=== PATIENT | female | born 1945 | race Caucasian/White ===

== ENCOUNTER → 2024-07-17 | Outpatient (REF) | payer MEDICARE, SELFPAY ==
[2024-07-17 09:08] LABS: Hemoglobin 7.4 g/dL (12.0-15.0)
== END ==
LOC: OLS.ACH 05:00
PROVIDERS: Visit Provider Internal Medicine
DX: K92.2 Gastrointestinal hemorrhage, unspecified (principal)
CPT/HCPCS: 36415; 85014; 85018

== ENCOUNTER → 2024-07-18 | Outpatient (REF) | payer MEDICARE, SELFPAY | LOC: OLS.ACH 05:00 | PROVIDERS: Visit Provider Internal Medicine | DX: K76.9 Liver disease, unspecified (principal) | CPT/HCPCS: 36415; 82140 ==

== ENCOUNTER → 2024-07-20 | Outpatient (REF) | payer MEDICARE, SELFPAY | LOC: OLS.ACH 05:00 | PROVIDERS: Visit Provider Internal Medicine | DX: G93.41 Metabolic encephalopathy (principal); K74.60 Unspecified cirrhosis of liver | CPT/HCPCS: 36415; 82140 ==

== ENCOUNTER → 2024-07-25 04:00 | Outpatient (REF) | payer MEDICARE, SELFPAY | LOC: OLS.ACH 04:00 | PROVIDERS: Referring Provider Internal Medicine; Visit Provider Internal Medicine | DX: K74.60 Unspecified cirrhosis of liver (principal) | CPT/HCPCS: 36415; 84443 ==

== ENCOUNTER → 2024-08-02 04:00 | Outpatient (REF) | payer MEDICARE, SELFPAY | LOC: OLS.ACH 04:00 | PROVIDERS: Referring Provider Internal Medicine; Visit Provider Internal Medicine | DX: K76.9 Liver disease, unspecified (principal); E87.1 Hypo-osmolality and hyponatremia | CPT/HCPCS: 36415; 82140 ==

== ENCOUNTER → 2024-08-03 05:00 | Outpatient (REF) | payer MEDICARE, SELFPAY ==
[2024-08-03 09:53] LABS: Anion Gap 7 (5-15); BUN 15 mg/dL (7-18); BUN/Creat Ratio 11.8 RATIO (10-20); Calcium,Total 8.9 mg/dL (8.5-10.1); Chloride 107 mmol/L (98-107); Creatinine, Serum 1.27 mg/dL (0.55-1.02); EST Glomerular Filtration Rate 43 mL/min (>60); Est Glom Filt Rate - Afr Amer 52 mL/min (>60); Glucose 117 mg/dL (74-106); Potassium 3.5 mmol/L (3.5-5.1); Sodium Level 140 mmol/L (136-145)
== END ==
LOC: OLS.ACH 05:00
PROVIDERS: Visit Provider Internal Medicine
DX: I50.9 Heart failure, unspecified (principal)
CPT/HCPCS: 36415; 80048

== ENCOUNTER → 2024-08-07 05:00 | Outpatient (REF) | payer MEDICARE, SELFPAY ==
[2024-08-07 08:50] LABS: ALB/GLOB Ratio 0.8 RATIO (0.9-2.4); AST(SGOT) 47 U/L (15-37); Alanine Aminotransfer ALT/SGPT 27 U/L (13-56); Albumin, Serum 2.8 g/dL (3.2-5.0); Alkaline Phosphatase 174 U/L (45-117); Anion Gap 6 (5-15); BUN 14 mg/dL (7-18); BUN/Creat Ratio 10.9 RATIO (10-20); Calcium,Total 9.3 mg/dL (8.5-10.1); Chloride 106 mmol/L (98-107); Creatinine, Serum 1.28 mg/dL (0.55-1.02); EST Glomerular Filtration Rate 43 mL/min (>60); Est Glom Filt Rate - Afr Amer 52 mL/min (>60); Globulin 3.6 g/dL (2.2-4.2); Glucose 127 mg/dL (74-106); Potassium 3.8 mmol/L (3.5-5.1); Protein, Total 6.4 g/dL (6.4-8.2); Sodium Level 139 mmol/L (136-145)
== END ==
LOC: OLS.ACH 05:00
PROVIDERS: Visit Provider Internal Medicine
DX: E87.1 Hypo-osmolality and hyponatremia (principal); I50.9 Heart failure, unspecified; E11.9 Type 2 diabetes mellitus without complications
CPT/HCPCS: 36415; 80053; 82140

== ENCOUNTER → 2024-09-25 04:00 | Outpatient (REF) | payer MEDICARE, SELFPAY ==
[2024-09-25 08:32] LABS: Hematocrit 32.7 % (37-47); Hemoglobin 10.5 g/dL (12.0-15.0); Mean Corp Hgb Conc 32.1 g/dL (32-36); Mean Corpuscular Hgb 31.5 pg (27.0-32.0); Mean Corpuscular Volume 98.2 fL (81-99); Mean Platelet Vol. 11.1 fl (6.2-12.0); Platelet Count 114 K/mm3 (150-450); RBC Distribution Width CV 14.3 % (11.6-14.6); RBC Distribution Width SD 51.7 fl (35.1-43.9); Red Blood Count 3.33 M/mm3 (4.2-5.4)
[2024-09-25 08:56] LABS: ALB/GLOB Ratio 0.6 RATIO (0.9-2.4); AST(SGOT) 44 U/L (15-37); Alanine Aminotransfer ALT/SGPT 27 U/L (13-56); Albumin, Serum 2.5 g/dL (3.2-5.0); Alkaline Phosphatase 152 U/L (45-117); Anion Gap 8 (5-15); BUN 18 mg/dL (7-18); BUN/Creat Ratio 14.6 RATIO (10-20); Chloride 107 mmol/L (98-107); Creatinine, Serum 1.23 mg/dL (0.55-1.02); EST Glomerular Filtration Rate 45 mL/min (>60); Est Glom Filt Rate - Afr Amer 54 mL/min (>60); Glucose 127 mg/dL (74-106); Potassium 3.5 mmol/L (3.5-5.1); Protein, Total 6.5 g/dL (6.4-8.2); Sodium Level 141 mmol/L (136-145)
== END ==
LOC: OLS.ACH 04:00
PROVIDERS: Referring Provider Internal Medicine; Visit Provider Internal Medicine
DX: K76.9 Liver disease, unspecified (principal); I50.9 Heart failure, unspecified; E11.9 Type 2 diabetes mellitus without complications
CPT/HCPCS: 36415; 80053; 82140; 85027

== ENCOUNTER → 2024-10-05 | Outpatient (REF) | payer MEDICARE, SELFPAY ==
[2024-10-05 09:30] LABS: Ammonia 62.1 umol/L (11-51)
== END ==
LOC: OLS.ACH 05:00
PROVIDERS: Visit Provider Internal Medicine
DX: K74.60 Unspecified cirrhosis of liver (principal); K76.9 Liver disease, unspecified
CPT/HCPCS: 36415; 82140

== ENCOUNTER → 2024-10-15 | Outpatient (REF) | payer MEDICARE, SELFPAY ==
[2024-10-15 08:09] LABS: Ammonia 46.6 umol/L (11-51)
== END ==
LOC: OLS.ACH 05:00
PROVIDERS: Visit Provider Internal Medicine
DX: K74.60 Unspecified cirrhosis of liver (principal); K76.9 Liver disease, unspecified; G93.41 Metabolic encephalopathy; N18.30 Chronic kidney disease, stage 3 unspecified
CPT/HCPCS: 36415; 82140

== ENCOUNTER → 2024-10-26 | Outpatient (REF) | payer MEDICARE, SELFPAY ==
[2024-10-26 08:03] LABS: Anion Gap 10 (5-15); BUN 24 mg/dL (4-19); BUN/Creat Ratio 17.4 RATIO (10-20); Calcium,Total 9.1 mg/dL (7.6-11.0); Carbon Dioxide 26.5 mmol/L (21.0-32.0); Chloride 103 mmol/L (98-108); Creatinine, Serum 1.39 mg/dL (0.70-1.20); EST Glomerular Filtration Rate 39 (>60); Glucose 152 mg/dL (70-99); Potassium 3.5 mmol/L (3.3-5.1); Sodium Level 139 mmol/L (133-145)
== END ==
LOC: OLS.ACH 05:00
PROVIDERS: Visit Provider Internal Medicine
DX: K76.9 Liver disease, unspecified (principal); E11.3293 Type 2 diabetes mellitus with mild nonproliferative diabetic retinopathy without macular edema, bilateral; I50.9 Heart failure, unspecified; E03.9 Hypothyroidism, unspecified
CPT/HCPCS: 36415; 80048

== ENCOUNTER → 2024-11-02 | Outpatient (REF) | payer MEDICARE, SELFPAY ==
[2024-11-02 08:48] LABS: Anion Gap 11 (5-15); BUN 22 mg/dL (4-19); BUN/Creat Ratio 14.1 RATIO (10-20); Calcium,Total 9.4 mg/dL (7.6-11.0); Carbon Dioxide 25.6 mmol/L (21.0-32.0); Chloride 103 mmol/L (98-108); Creatinine, Serum 1.52 mg/dL (0.70-1.20); EST Glomerular Filtration Rate 35 (>60); Glucose 136 mg/dL (70-99); Potassium 3.8 mmol/L (3.3-5.1); Sodium Level 139 mmol/L (133-145)
== END ==
LOC: OLS.ACH 05:00
PROVIDERS: Visit Provider Internal Medicine
DX: K76.9 Liver disease, unspecified (principal); E11.3293 Type 2 diabetes mellitus with mild nonproliferative diabetic retinopathy without macular edema, bilateral; I50.9 Heart failure, unspecified; E03.9 Hypothyroidism, unspecified
CPT/HCPCS: 36415; 80048

== ENCOUNTER → 2024-11-12 | Outpatient (REF) | payer MEDICARE, SELFPAY | LOC: OLS.ACH 05:00 | PROVIDERS: Visit Provider Internal Medicine | DX: K76.9 Liver disease, unspecified (principal) | CPT/HCPCS: 36415; 82140 ==

== ENCOUNTER → 2024-11-26 | Outpatient (REF) | payer MEDICARE, MEDICAID, SELFPAY ==
[2024-11-26 09:27] LABS: Hematocrit 32.2 % (37-47); Hemoglobin 10.5 g/dL (12.0-15.0); Mean Corp Hgb Conc 32.6 g/dL (32-36); Mean Corpuscular Volume 98.2 fL (81-99); Mean Platelet Vol. 10.6 fl (6.2-12.0); Platelet Count 142 K/mm3 (150-450); RBC Distribution Width CV 13.9 % (11.6-14.6); RBC Distribution Width SD 49.7 fl (35.1-43.9); Red Blood Count 3.28 M/mm3 (4.2-5.4); White Blood Count 9.6 K/mm3 (4.4-11.0)
== END ==
LOC: OLS.ACH 05:00
PROVIDERS: Visit Provider Internal Medicine
DX: R05.1 Acute cough (principal)
CPT/HCPCS: 36415; 85027; 87631

== ENCOUNTER → 2024-12-25 05:00 | Outpatient (REF) | payer MEDICARE, MEDICAID, SELFPAY | LOC: OLS.ACH 05:00 | PROVIDERS: Visit Provider Internal Medicine | DX: E11.3293 Type 2 diabetes mellitus with mild nonproliferative diabetic retinopathy without macular edema, bilateral (principal) | CPT/HCPCS: 36415; 83036 ==

== ENCOUNTER → 2025-01-10 05:00 | Outpatient (REF) | payer MEDICARE, MEDICAID, SELFPAY ==
[2025-01-10 08:26] LABS: Hematocrit 34.1 % (37-47); Hemoglobin 11.3 g/dL (12.0-15.0); Mean Corp Hgb Conc 33.1 g/dL (32-36); Mean Corpuscular Hgb 32.8 pg (27.0-32.0); Mean Corpuscular Volume 98.8 fL (81-99); Mean Platelet Vol. 11.6 fl (6.2-12.0); Platelet Count 125 K/mm3 (150-450); RBC Distribution Width CV 13.4 % (11.6-14.6); RBC Distribution Width SD 47.8 fl (35.1-43.9); Red Blood Count 3.45 M/mm3 (4.2-5.4); White Blood Count 7.4 K/mm3 (4.4-11.0)
[2025-01-10 09:04] LABS: Anion Gap 10 (5-15); BUN 24 mg/dL (4-19); BUN/Creat Ratio 18.5 RATIO (10-20); Carbon Dioxide 25.7 mmol/L (21.0-32.0); Chloride 104 mmol/L (98-108); Creatinine, Serum 1.31 mg/dL (0.70-1.20); EST Glomerular Filtration Rate 41 (>60); Glucose 134 mg/dL (70-99); Potassium 3.5 mmol/L (3.3-5.1); Sodium Level 140 mmol/L (133-145)
== END ==
LOC: OLS.ACH 05:00
PROVIDERS: Visit Provider Internal Medicine
DX: R60.0 Localized edema (principal); I50.9 Heart failure, unspecified
CPT/HCPCS: 36415; 80048; 85027

== ENCOUNTER → 2025-02-05 04:00 | Outpatient (REF) | payer MEDICARE, MEDICAID, SELFPAY ==
--- OUTSIDE RECORDS SUMMARY | 2025-02-05 04:32 | XMS RPT_ITS | CCD ---
Author Organization [facility] Care Team Providers Care Supervisor Sulfuric [employer] Name Role Phone Komal Cohn Primary Care Provider Komal Cohn DO Primary Care Provid er Komal Cohn DO Unavailable Guido RN, Sue Unavailable Unavailable Latonya Rosado RN Unavailable Unavailable [facility] DO [place] Primary Care Provider Lalit TSE [place] Primary Care Provider Lalit TSE [place] Primary Care Provider Adin Elias CNP Primary Care Provider KOMAL COHN Attending Joseph COHN MAROA MARYAN Primary Care Joseph COHN MAROA MARYAN Attending Varshavavicenta labanna COHN MAROA MARYAN Primary Care Unalien COHN MAROA MARYAN Attending Joseph COHN MAROA MARYAN Primary Care Unavavicenta labanna COHN MAROA MARYAN Primary Care Unavavicenta labanna COHN KOMAL MARYAN Attending Unavavicenta labanna COHN MAROA MARYAN Primary Care Unavavicenta labanna COHN MAROA MARYAN Attending Unavavicenta labanna COHN, MAROA MARYAN Primary Care Unavavicenta labanna COHN MAROA MARYAN Attending Joseph Olmedo MD, Julieth Attending Provider Unavailable Shara BRUNNER, Julieth Referring Provider Unavailable Shara BRUNNER, Julieth Attending Provider Unavailable Shara BRUNNER, Julieth Attending Provider Unavailable Shara BRUNNER, Julieth Referring Provider Unavailable Julieth Olmedo DO Primary Care Provider [facility] Unavailable MUKKAMALLA, MAHAVEER Admitting Unavailable ERICKSON, MANSUMEET Consulting Unavailable LISA, TERENCE Attending Unavailable [facility] Unavailable KERI, ERINN Admitting Unavailable BONYCONNOR BORDENAN Attending Unavailable [facility] Care Unavailable MATTHEW MORILLO Admitting Unavailable MAGALY, ARIADNE N Attending Unavailab WIL Sapp Consulting Unavailable [facility] Unavailable [facility] Unavailable STRINGER MASROOR Referring Unavailable [facility] Unavailable [facility] Unavailable POOLE, PRAVIN Attending Unavailable DEPAMYO, JULIETH Primary Care Unavailable JOSE JOEL Attending Unavailable [facility] Unavailable LE DOBSON Attending LE Narayanan Referring [facility] Unavailable [facility] Attending Unavailable [facility] Referring Unavailable [facility] Unavailable JOSE JOEL Attending Unavailable JOSE JOEL Referring Unavailable [facility] Care Unavailable LE DOBSON Attending LE Narayanan Referring [facility] Unavailable Deperro OLS, Julieth Referring Unavailable Deperro OLS, Julieth Attending Unavailable Deperro OLS, Julieth Attending Unavailable Deperro OLS, Julieth Attending Unavailable Deperro OLS, Julieth Attending Unavailable Deperro OLS, Julieth Referring Unavailable Deperro OLS, Julieth Attending Unavailable Deperro OLS, Julieth Attending Unavailable Deperro OLS, Julieth Attending Unavailable Deperro OLS, Julieth Attending Unavailable Deperro OLS, Julieth Attending Unavailable Deperro OLS, Julieth Attending Unavailable Deperro OLS, Julieth Attending Unavailable Deperro OLS, Julieth Attending Unavailable Deperro OLS, Julieth Attending Unavailable Deperro OLS, Julieth Attending Unavailable Deperro OLS, Julieth Attending Unavailable Deperro OLS, Julieth Attending Unavailable Deperro OLS, Julieth Referring Unavailable Deperro OLS, Julieth Attending Unavailable Deperro OLS, Julieth Referring Unavailable Deperro OLS, Julieth Attending Unavailable Deperro OLS, Julieth Attending Unavailable Deperro OLS, Julieth Attending Unavailable Allergies Allergy Classification Reported Allergen(s) Allergy Type Date of Onset Reaction(s) Facility Opioid Agonists (12 sources) Codeine Drug Allergy 02-24-2016 Hives, Rash, Unknown [facility] (20 sources) Codeine; Translations: [CODEINE] Drug Allergy 02-24-2016 Hives, Rash [facility] Work Phone: (20 sources) Codeine; Translations: [CODEINE SULFATE] Drug Allergy 06-13-2018 Unknown [facility] Medications Current Medications Medication Drug Class(es) Dates Sig (Normalized) Sig (Original) alpha tocopherol (Vitamin E) 100 units capsule (20 sources) take 1 capsule by mo uth once daily alpha tocopherol (Vitamin E) 100 units capsule Take 100 Units by mouth daily. Active take 1 capsule by mouth once isiah ly alpha tocopherol (Vitamin E) 100 units capsule Take 100 Units by mouth daily. 0 Active amLODIPine 5 mg oral tablet (3 sources) Dihydropyridine Calcium Channel Partha Start: 06-11-2024 End: 06-11-2025 take 1 tablet by mouth once daily amLODIPine (NORVASC) 5 mg tablet Indications: Primary hypertension Take 1 tablet by mouth once daily. 90 tablet 3 06/11/2024 06/11/2025 Active amoxicillin 500 mg oral capsule (2 sources) Penicillin-class Antibacterial Start: 07-04-2023 End: 07-11-2023 take 1 capsule by mouth every eight hours amoxicillin (AMOXIL) 500 mg capsule Take 1 capsule by mouth every 8 hours for 7 days. 30 capsule 0 07/04/2023 07/11/2023 Active Comment on above: Take 1 capsule by mo uth every 8 hours for 7 days. Take 1 capsule by mo ut every 8 hours for 10 days. amoxicillin 875 mg / clavulanate 125 mg oral tablet (2 sources) Penicillin-class Antibacterial Start: 02-02-2024 End: 02-07-2024 take 1 tablet by mouth twice daily amoxicillin-clavul anate (Augmentin) 875-125 MG tablet Take 1 tablet by mouth 2 times daily for 5 days. 10 tablet 02/02/2024 02/07/2024 Active Blood-Glucose Meter (20 sources) Start: 11-11-2022 Blood-Glucose Meter Indications: Type 2 diabetes mellitus without complication, without long-term current use of insulin ([facility]) Use to test blood sugar 1 Each 11/11/2022 Active Start: 11-11-2022 Blood-Glucose Meter Indications: Type 2 diabetes mellitus without complication, without long-term current use of insulin (HCC) Use to test blood sugar 1 Each 0 11/11/2022 Active Comment on above: Use to test blood [place] [facility] cholecalciferol (Vitamin D3) 200 Unit tablet split tablet (5 sources) cholecalciferol (Vitamin D3) 200 Unit tablet split tablet Take 5,000 Units by mouth daily. Active cholecalciferol, vitamin D3, (VITAMIN D3 ORAL) (20 sources) cholecalciferol, vitamin D3, (VITAMIN D3 ORAL) Take by mouth. Active cholecalciferol, vitamin D3, (VITAMIN D3 ORAL) Take by mouth. 0 Active Comment on above: Take by mouth. 12 hr dextromethorphan hydrobromide 30 mg / guaiFENesin 600 mg extended release oral tablet (4 sources) Uncompetitive T-gqjntz-G-aspartate Receptor Antagonist, Sigma-1 Agonist Start: 07-01-20 End: 07-18-20 fluticasone propionate 0.05 mg/actuat metered dose nasal spray (20 sources) Corticosteroid Start: 01-06-20 take 2 spray(s) nasal route once daily fluticasone (FLONASE) 50 mcg/actuation nasal spray Indications: Other seasonal allergic rhinitis Use 2 Sprays in each nostril once daily. 48 mL 3 01/06/2024 Active Start: 03-20-2021 End: 01-06-2024 take 2 spray(s) nasal route once daily fluticasone (FLONASE) 50 mcg/actuation nasal spray Indications: Other seasonal allergic rhinitis SPRAY 2 SPRAYS INTO EACH NOSTRIL EVERY DAY 48 mL 3 12/14/2022 01/06/2024 Discontinued Start: 11-26-2020 End: 02-24-2021 take 2 spray(s) nasal route once daily fluticasone (FLONASE) 50 mcg/actuation nasal spray Indications: Seasonal allergies Use 2 Sprays in each nostril once daily. 48 mL 3 11/26/2020 02/24/2021 Active Start: 09-25-2020 End: 11-26-2020 fluticasone (FLONASE) 50 mcg/actuation nasal spray USE 2 SPRAY(S) EVERY DAY BY INTRANASAL ROUTE FOR 90 DAYS. 48 mL 3 09/25/2020 11/26/2020 Discontinued take 2 spray(s) nasa l route once daily fluticasone (FLONASE) 50 MCG/ACT nasal spray 2 sprays by Each Nostril route daily 0 Active End: 09-25-2020 take 2 spray(s) nasal route once daily fluticasone (FLONASE) 50 mcg/actuation nasal spray Use 2 Sprays in each nostril once daily. 0 09/25/2020 Discontinued Comment on above: Use 2 Sprays in each nostril once daily. USE 2 SPRAY(S) EVERY DAY BY INTRANASAL ROUTE FOR 90 DAYS. SPRAY 2 SPRAYS INTO EACH NOSTRIL EVERY DAY 2 ml furosemide 10 mg/ml injection (20 sources) Loop Diuretic Start: 06-29-2024 Start: 03-14-2024 furosemide (La six) 20 MG tablet 3 days in a row 100 tablet 3 03/14/2024 Active Start: 01-30-2024 20 mg, IntraVE Nous, Once, On Tue01/30/24 at 1815, For 1 dose Start: 12-07-2023 End: 06-04-2024 take 1 tablet by mouth once daily furosemide (LASIX) 40 mg tablet Indications: Bilateral leg edema Take 1 tablet by mouth once daily. 30 tablet 5 12/07/2023 06/04/2024 Active Start: 04-19-2022 End: 05-03-2022 take 3 tablets by mouth once daily furosemide (LASIX) 40 mg tablet Take 3 tablets by mouth once daily. 90 tablet 3 04/19/2022 05/03/2022 Discontinued (Course of therapy completed) Start: 12-18-2021 End: 12-19-2021 furosemide (LASIX) injection 40 mg Start: 12-17-2021 furosemide (LA SIX) tablet 40 mg Start: 12-14-2021 End: 12-14-2021 furosemide (LASIX) injection 20 mg Start: 12-14-2021 End: 12-15-2021 furosemide (LASIX) injection 40 mg Start: 12-14-2021 End: 12-14-2021 furosemide (LASIX) 10 MG/ML injection Start: 06-14-2020 End: 06-11-2024 End: 08-16-2022 take 1 tablet by mouth twice daily furosemide (LASIX) 20 mg tablet Take 20 mg by mouth twice daily. 0 08/16/2022 Discontinued Comment on above: Take 20 mg by mouth once daily as needed. Take 1 tablet by chelo th once daily as needed. Take 3 tablets by mo [facility] once daily. Take 1 tablet by chelo th once daily. Take 20 mg by mouth twice daily. TAKE 1 TABLET BY CHELO TH EVERY DAY lactulose 667 mg/ml oral solution (4 sources) Osmotic Laxative Start: End: 4 levothyroxine sodium 0.05 mg oral tablet (20 sources) l-Thyroxine Start: End: take 25 ug by mouth once daily before breakfast 25 mcg, Oral, Daily before breakfast, First dose on 01/29/24 at 0600, Tube feeding (TF) interaction, obtain physician order to manage, recommend holding TF for 30 minutes before and after dose. Start: 04-28-2023 End: 07-04-2024 take 1 tablet by mouth once daily levothyroxine (SYNTHROID) 50 mcg tablet take 1 tablet by mouth every day 90 tablet 1 04/13/2024 Active Start: 07-09-2022 End: 11-19-2022 take 1 tablet by mouth once daily levothyroxine (SYNTHROID) 50 mcg tablet TAKE 1 TABLET BY MOUTH EVERY DAY 90 tablet 3 07/09/2022 Active Start: 12-23-2021 End: 12-22-2021 take 1 tablet by mouth once daily levothyroxine (SYNTHROID) 50 MCG tablet Take 1 tablet by mouth Daily 30 tablet 3 12/23/2021 12/22/2021 Discontinued Start: 12-23-2021 take 1 tablet by chelo th once daily levothyroxine (SYNTHROID) 50 MCG tablet Take 1 tablet by mouth Daily 30 tablet 3 12/23/2021 Active Start: 12-22-2021 End: 12-22-2022 take 1 tablet by mouth once daily levothyroxine (Synthroid, Levoxyl) 50 MCG tablet TAKE 1 TABLET BY MOUTH DAILY 30 tablet 3 12/22/2021 Active Start: 05-04-2020 End: 06-21-2021 take 1 tablet by mouth once daily levothyroxine (SYNTHROID) 50 mcg tablet TAKE 1 TABLET BY MOUTH EVERY DAY 90 tablet 3 03/23/2021 Active Comment on above: Take 50 mcg by mouth once daily. TAKE 1 TABLET BY CHELO TH EVERY DAY linezolid 600 mg oral tablet (5 sources) Oxazolidinone Antibacterial Start: 02-02-2024 End: 02-07-2024 take 1 tablet by mouth twice daily linezolid (Zyvox) 600 MG tablet Take 1 tablet (600 mg) by mouth 2 times daily for 5 days. 10 tablet 02/02/2024 02/07/2024 Active Start: 01-31-2024 End: 02-02-2024 take 1 tablet by mouth every twelve hours 600 mg, Oral, Every 12 hours, First dose on Tue01/31/24 at 1030, Suspected Indication (Select all that apply): Skin and Soft Tissue Infection Start: 12-22-2021 End: 12-28-2021 take 1 tablet by mouth twice daily linezolid (ZYVOX) 600 MG tablet Take 1 tablet by mouth 2 times daily for 6 days 12 tablet 0 12/22/2021 12/28/2021 Active 24 hr metoprolol succinate 50 mg extended release oral tablet (4 sources) beta-Adrenergic Partha Start: 10-01-2024 End: 10-02-2025 take 1 tablet by mouth once daily metoprolol succinate XL (Toprol-XL) 50 MG 24 hr tablet Indications: Essential hypertension Take 1 tablet (50 mg) by mouth daily. Do not crush or chew. 90 tablet 3 10/02/2024 10/02/2025 Active End: 08-25-2019 take 1 tablet by mouth twice daily metoprolol tartrate (LOPRESSOR) 25 MG tablet Take 25 mg by mouth 2 times daily 0 08/25/2019 Discontinued miconazole nitrate 0.02 mg/mg topical powder (1 source) Azole Antifungal Start: 12-14-2021 apply 1 dose topically twice daily Topical, 2 TIMES DAILY, First dose on Tue12/14/21 at 1230 Apply to affected areas. Substituted for Nystatin (MICOSTATIN) powder. nitroglycerin 0.4 mg sublingual tablet (3 sources) Nitrate Vasodilator Start: 12-30-2017 nitroGLYCERIN (NITROSTAT) 0.4 MG SL tablet up to max of 3 total doses. If no relief after 1 dose, call 911. 25 tablet 3 12/30/2017 Active nystatin 100 unt/mg topical powder (20 sources) Polyene Antifungal Start: 11-30-2021 End: 02-27-2024 nystatin (MYCOSTATIN) powder Apply 1 application to affected area three times a day. APPLY TO AFFECTED AREA 60 g 3 02/27/2024 Active Start: 07-21-2021 End: 11-30-2021 nystatin (MYCOSTATIN) powder APPLY TO AFFECTED AREA TWICE A DAY 30 g 3 07/21/2021 11/30/2021 Discontinued Start: 02-02-2021 End: 07-21-2021 nystatin (MYCOSTATIN) powder Apply to affected area twice daily. APPLY TO AFFECTED AREA 0 02/02/2021 07/21/2021 Discontinued Start: 11-26-2020 End: 12-26-2020 nystatin (MYCOSTATIN) powder Apply 1 application to affected area twice daily. 30 g 3 11/26/2020 12/26/2020 Active Start: 07-05-2020 End: 11-26-2020 nystatin (MYCOSTATIN) powder APPLY TO AFFECTED AREA TOPICALLY TWICE A DAY 0 07/05/2020 11/26/2020 Discontinued nystatin (MYCOST ATIN) 412746 UNIT/GM powder Apply topically 3 times daily Apply topically 3 times per day to affected area. 0 Active Comment on above: APPLY TO AFFECTED AR EA TOPICALLY TWICE A DAY Apply 1 application to affected area twice daily. Apply to affected ar ea twice daily. APPLY TO AFFECTED AREA APPLY TO AFFECTED AR EA TWICE A DAY Apply 1 application to affected area three times daily. APPLY TO AFFECTED AREA rosuvastatin calcium 20 mg oral tablet (20 sources) HMG-CoA Reductase Inhibitor Start: 03-24-20 End: 01-06-20 take 1 tablet by mouth once daily rosuvastatin (Crestor) 20 MG tablet Indications: Coronary artery disease involving coronary bypass graft of [place] heart without angina pectoris Take 1 tablet (20 mg) by mouth daily. 90 tablet 3 03/14/2024 Active Comment on above: Take 20 mg by mouth once daily. silver sulfADIAZINE 10 mg/ml topical cream (9 sources) Sulfonamide Antibacterial Start: 10-28-20 24 silver sulfADIAZINE (SILVADENE) 1 % cream Apply 1 application to affected area two times a day. 06/04/2024 Active Start: 03-16-2024 End: 06-01-2024 silver sulfADIAZINE (SILVADE NE) 1 % cream Indications: Cellulitis of left lower leg APPLY TO AFFECTED AREA TWICE A DAY DIRECTED 85 g 04/27/2024 06/01/2024 Active SITagliptin 25 mg oral tablet (20 sources) Dipeptidyl Peptidase 4 Inhibitor Start: 02-02-2024 End: 04-27-2025 take 1 tablet by mouth once daily SITagliptin (Januvia) 25 MG tablet Take 1 tablet (25 mg) by mouth daily. 30 tablet 1 02/02/2024 02/01/2025 Active sulfamethoxazole 800 mg / trimethoprim 160 mg oral tablet (2 sources) Dihydrofolate Reductase Inhibitor Antibacterial, Sulfonamide Antimicrobial Start: 03-16-2024 End: 03-23-2024 take 1 tablet by mouth twice daily sulfamethoxazole -trimethoprim (BACTRIM DS) 800-160 mg per tablet Indications: Cellulitis of left lower leg Take 1 tablet by mouth two times a day for 7 days. 14 tablet 0 03/16/2024 03/23/2024 Active Start: 12-07-2023 End: 12-14-2023 take 1 tablet by mouth twice daily sulfamethoxazole-trimethoprim (BACTRIM D S) 800-160 mg per tablet Indications: Acute UTI Take 1 tablet by mouth two times a day for 7 days. 14 tablet 0 12/07/2023 12/14/2023 Active trolamine salicylate 100 mg/ ml topical cream (12 sources) Start: 06-01-2024 End: 06-01-2025 trolamine salicylate (MYOFLE X) 10 % cream Apply 1 Each to affected area three times a day as needed. 06/01/2024 06/01/2025 Active Start: 05-31-2024 End: 06-01-2025 trolamine salicylate (Asperc goyo) 10 % cream Apply topically every 8 hours as needed (for muscle pain). 06/01/2024 06/01/2025 Active vancomycin (VANCOCIN) 1750 m g in sodium chloride 0.9% 500 mL IVPB (1 source) Start: 12-20-2021 vancomycin (VA NCOCIN) 1750 mg in sodium chloride 0.9% 500 mL IVPB (2 sources) Completed/Discontinued Medications Medication Drug Class(es) Dates Sig (Normalized) Sig (Original) Acetaminophen (8 sources) Start: 05-30-2024 End: 06-01-2024 take 1 tablet by mouth every six hours as needed for pain and fever acetaminophen (Tylenol) tablet 650 mg Start: 01-28-2024 End: 02-02-2024 take 1 tablet by mouth every six hours as needed for pain and fever acetaminophen (Tylenol) tablet 650 mg Start: 11-18-2022 End: 11-19-2022 take 1 tablet by mouth every six hours as needed for pain and fever acetaminophen (Tylenol) tablet 650 mg Start: 12-13-2021 acetaminophen (TYLENOL) tablet 650 mg Start: 12-13-2021 End: 12-13-2021 acetaminophen (TYLENOL) supp ository 650 mg albuterol 0.83 mg/ml inhalation solution (2 sources) beta2-Adrenergic Agonist Start: 01-30-2024 End: 02-02-2024 2.5 mg, Nebulization, Every 4 hours PRN, wheezing, shortness of breath, Starting on Tue01/30/24 at 0008, Initiate RT Bronchodilator Protocol? Yes albuterol 0.833 mg/ml / ipratropium bromide 0.167 mg/ml inhalation solution (8 sources) Anticholinergic, beta2-Adrenergic Agonist Start: 06-25-2024 End: 07-04-2024 Start: 12-14-2021 End: 12-18-2021 ipratropium-albuterol (DUONE B) nebulizer solution 1 ampule aluminum & magnesium hydroxide-simethicone (Mylanta) 200-200-20 MG/5ML oral suspension 20 mL (2 sources) Start: 05-29-2024 End: 06-01-2024 take 20 mL by mouth every six hours as needed for gastroesophageal reflux disease aluminum & magnesium hydroxide-simethicone (Mylanta) 200-200-20 MG/5ML oral suspension 20 mL Ascorbic Acid / Bioflavonoids (9 sources) Vitamin C ascorbic acid/bioflavonoids (LISSETH C ORAL) Take by mouth. 0 Active Comment on above: Take by mouth. aspirin 81 mg delayed release oral tablet (20 sources) Platelet Aggregation Inhibitor, Nonsteroidal Anti-inflamma tory Drug Start: 05-29-2024 End: 05-29-2024 take 324 mg by mouth once 324 mg, Oral, Once, On Tue05/29/24 at 1935, For 1 dose Start: 11-18-2022 End: 07-04-2024 Start: 12-13-2021 take 81 mg by mouth once daily 81 mg, Oral, DAILY, First dose on 12/13/21 at 1830, Until Discontinued take 1 tablet by chelo th once daily aspirin 81 MG EC tablet Take 81 mg by mouth daily. 0 Active Comment on above: Take 81 mg by mouth. atenolol 50 mg oral tablet (20 sources) beta-Adrenergic Partha Start: 01-18-2022 End: 06-11-2024 take 1 tablet by mouth once daily atenolol (TENORMIN) 50 mg tablet Indications: Primary hypertension Take 1 tablet by mouth once daily. 90 tablet 3 01/06/2024 06/11/2024 Discontinued (Course of therapy completed) Start: 12-23-2021 take 1 tablet by chelo th once daily atenolol (TENORMIN) 50 MG tablet Take 1 tablet by mouth daily 30 tablet 3 12/23/2021 Active Start: 12-13-2021 End: 05-29-2024 take 50 mg by mouth once daily 50 mg, Oral, DAILY, Fir st dose on 12/13/21 at 1830, Until Discontinued Start: 03-11-2021 End: 06-09-2021 take 1 tablet by mouth once daily atenolol (TENORMIN) 100 mg tablet Indications: Primary hypertension Take 1 tablet by mouth once daily. 90 tablet 3 03/11/2021 Active End: 12-22-2021 take 2 tablets by mouth once daily atenolol (TENORMIN) 50 MG tablet Take 100 mg by mouth daily 0 12/22/2021 Discontinued (Stop Taking at Discharge) End: 02-25-2021 take 1 tablet by mouth once daily atenolol (TENORMIN) 100 mg tablet Take 100 mg by mouth once daily. 0 02/25/2021 Discontinued take 1 tablet by chelo th twice daily after mealtime atenolol (TENORMIN) 50 MG tablet atenolol 50 mg tablet TAKE 1 TABLET BY MOUTH TWICE A DAY AFTER MEALS 0 Active Comment on above: atenolol 100 mg tabl et Take 100 mg by mouth once daily. Take 1 tablet by chelo once daily. TAKE 1 TABLET BY CHELO EVERY DAY benzonatate 100 mg oral capsule (20 sources) Non-narcotic Antitussive Start: 12-19-19 End: 04-27-20 benzonatate (TESSALON PERLE) 100 mg capsule 12/22/2021 04/27/2024 Discontinued (Course of therapy completed) Comment on above: TAKE 1 CAPSULE BY MO [facility] THREE TIMES A DAY NEEDED FOR COUGH Calcium Carb-Cholecalciferol (CALCIUM 1000 + D PO) (1 source) End: 08-25-19 take 1 capsule by mouth twice daily Calcium Carb-Cholecalciferol (CALCIUM 1000 + D PO) Take 1 capsule by mouth 2 times daily 0 08/25/2019 Discontinued calcium carbonate 1625 mg / cholecalciferol 0.0125 mg / vitamin k 0.04 mg chewable tablet (20 sources) Vitamin D End: 05-03-20 calcium-vitamin D3-vitamin K 650 mg-12.5 mcg-40 mcg chew Take by mouth. 0 05/03/2022 Discontinued (Course of therapy completed) Comment on above: Take by mouth. calcium chloride 0.0014 meq/ml / potassium chloride 0.004 meq/ml / sodium chloride 0.103 meq/ml / sodium lactate 0.028 meq/ml injectable solution (3 sources) Start: 12-14-19 End: 12-15-19 IntraVENous, at 50 mL/hr, CONTINUOUS, Starting on Tue12/13/21 at 1830 Start: 12-13-2021 End: 12-13-2021 lactated ringers bolus ceFAZolin 2000 mg injection (1 source) Cephalosporin Antibacterial Start: 12-14-2021 End: 12-16-2021 ceFAZolin (ANCEF) 2000 mg in dextrose 4 % 100 mL IVPB (premix) ceFAZolin (ANCEF) 2,000 mg in dextrose 5 % 100 mL IVPB (1 source) Start: 12-16-2021 End: 12-17-2021 ceFAZolin (ANCEF) 2,000 mg in dextrose 5 % 100 mL IVPB cefepime (MAXIPIME) 2000 mg IVPB minibag (1 source) Start: 12-13-2021 End: 12-14-2021 2,000 mg, IntraVENous, at 12.5 mL/hr, Administer over 240 Minutes, EVERY 12 HOURS, First dose on 12/13/21 at 2100, For 7 days Original stop date 12/20@0900 cefTRIAXone (Rocephin) 1 g in sodium chloride 0.9 % 50 mL IVPB Mini-Bag Plus (2 sources) Start: 11-19-2022 End: 11-19-2022 cefTRIAXone (Rocephin) 1 g in sodium chloride 0.9 % 50 mL IVPB Mini-Bag Plus cefTRIAXone (Rocephin) 1,000 mg in sodium chloride 0.9 % 50 mL IVPB Mini-Bag Plus (8 sources) Start: 06-26-2024 End: 07-02-2024 Start: 01-29-2024 End: 02-02-2024 1,000 mg, IntraVENous, at 10 0 mL/hr, Administer over 30 Minutes, Every 24 hours, First dose on 01/29/24 at 1700, Mini-Bag Plus bag, Suspected Indication (Select all that apply): Urinary Tract Infection Start: 01-28-2024 End: 01-28-2024 1,000 mg, IntraVENous, at 10 0 mL/hr, Administer over 30 Minutes, Once, On 01/28/24 at 1715, For 1 dose, Mini-Bag Plus bag, Suspected Indication (Select all that apply): Skin and Soft Tissue Infection Start: 11-17-2022 End: 11-18-2022 cefTRIAXone (Rocephin) 1,000 mg in sodium chloride 0.9 % 50 mL IVPB Mini-Bag Plus cefTRIAXone (ROCEPHIN) 1000 mg IVPB in NS 50ml minibag (1 source) Start: 12-13-2021 End: 12-13-2021 cefTRIAXone (ROCEPHIN) 1000 mg IVPB in NS 50ml minibag cephalexin 500 mg oral capsule (8 sources) Cephalosporin Antibacterial Start: 03-07-2023 End: 03-14-2023 take 1 capsule by mouth four times daily cephALEXin (KEFLEX) 500 mg capsule Indications: Cellulitis of skin Take 1 capsule by mouth four times daily for 7 days. 28 capsule 0 03/07/2023 03/14/2023 Start: 11-19-2022 End: 11-24-2022 take 1 capsule by mouth every twelve hours cephALEXin (KEFLEX) 500 mg capsule Take 500 mg by mouth q 12 HR. 0 11/19/2022 11/24/2022 Active Start: 11-19-2022 End: 11-24-2022 take 1 capsule by mouth twice daily cephalexin (Keflex) 500 MG capsule Take 1 capsule (500 mg) by mouth 2 times daily for 5 days. 10 capsule 0 11/19/2022 11/24/2022 Active Start: 12-13-2021 End: 12-22-2021 take 1 capsule by mouth four times daily cephALEXin (KEFLEX) 500 MG capsule Take 1 capsule by mouth 4 times daily for 5 days 20 capsule 0 12/13/2021 12/22/2021 Discontinued (Stop Taking at Discharge) Comment on above: Take 500 mg by mouth q 12 HR. Take 1 capsule by [facility] four times daily for 7 days. cholecalciferol 0.125 mg oral capsule (20 sources) Vitamin D Start: take 5000 [IU] by mouth once daily at dinner 5,000 Units, Oral, DAILY WITH DINNER, First dose on 12/13/21 at 1830, Until Discontinued Cholecalciferol (Vitamin D) 125 MCG (5000 UT) capsule Take 5,000 Units by mouth daily. Active take 1 tablet by mouth once long y Cholecalciferol (VITAMIN D3) 5000 units TABS Take 5,000 Units by mouth Daily with supper 0 Active cholecalciferol (Vitamin D-3 ) tablet 5,000 Units (4 sources) Start: 06-26-2024 End: 07-04-2024 Start: 01-28-2024 End: 02-02-2024 take 5000 [IU] by mouth once daily 5,000 Units, Oral, Daily, First dose on 01/28/24 at 1945 cholecalciferol 9.52 unt/ml / glucose 357 mg/ml oral gel (6 sources) Vitamin D Start: 06-25-2024 End: 07-04-2024 Start: 05-29-2024 End: 06-01-2024 15 g, Oral, As needed, low b lood sugar, Starting on Tue05/29/24 at 2053, If blood glucose less than 50 mg/dL and patient ALERT and NOT NPO, give 2 tubes glucose gel. If blood glucose less than 70 mg/dL and patient ALERT and NOT NPO, give 1 tube glucose gel. Repeat blood glucose in 15 minutes. If blood glucose is less than 70 mg/dL, repeat treatment and recheck blood glucose in 15 minutes x2 and notify provider. Start: 01-28-2024 End: 02-02-2024 citalopram 20 mg oral tablet (19 sources) Serotonin Reuptake Inhibitor Start: 12-07-2023 End: 04-27-2024 take 0.5 tablet by mouth once daily, then take 1 tablet by mouth once daily citalopram (CELEXA) 20 mg tablet Indications: Other depression Take 0.5 tablets by mouth once daily for 7 days, THEN 1 tablet once daily. 94 tablet 12/07/2023 04/27/2024 Discontinued (Course of therapy completed) Start: 12-13-2021 take 20 mg by mouth once daily 20 mg, Oral, DAILY, First dose on Tue12/13/21 at 1830, Until Discontinued docusate sodium 100 mg oral capsule (1 source) End: 08-25-2019 take 1 capsule by mouth twice daily docusate sodium (COLACE) 100 MG capsule Take 100 mg by mouth 2 times daily 0 08/25/2019 Discontinued 0.3 ml enoxaparin sodium 100 mg/ml prefilled syringe (7 sources) Low Molecular Weight Heparin Start: 05-30-2024 End: 06-01-2024 inject 30 mg by subcutaneous injection every twenty-four hours 30 mg, SubCUTAneous, Every 24 hours scheduled (Daily), First dose on Tue05/30/24 at 0900, Renal dosing, Indication of Use: Prophylaxis-DVT/PE , Indications: Prophylaxis of Venous Thromboembolism, On hold since Tue05/30/2024 at 1700 until manually unheld Start: 01-29-2024 End: 02-02-2024 inject 40 mg by subcutaneous injection every twenty-four hours 40 mg, SubCUTAneous, Every 24 hours scheduled (Daily), First dose (after last modification) on Tue01/29/24 at 0900, Indication of Use: Prophylaxis-DVT/PE, Indications: Prophylaxis of Venous Thromboembolism Start: 11-18-2022 End: 11-19-2022 enoxaparin (Lovenox) syringe 40 mg Start: 12-13-2021 inject 40 mg by subc utaneous injection once daily 40 mg, SubCUTAneous, DAILY, First dose on 12/13/21 at 1830, Until Discontinued Indication of Use: Prophylaxis-DVT/PE ferrous sulfate 325 mg oral tablet (20 sources) Start: 06-26-2024 End: 07-04-2024 Start: 05-30-2024 End: 06-01-2024 take 325 mg by mouth once daily at breakfast 325 mg, Oral, Daily with breakfast, First dose on Tue05/30/24 at 0800 Start: 01-29-2024 End: 02-02-2024 take 325 mg by mouth once daily at breakfast 325 mg, Oral, Daily with breakfast, First dose on 01/29/24 at 0800 Start: 08-23-2023 End: 01-05-2025 take 1 tablet by mouth once ferrous sulfate 325 mg (65 mg iron) tablet Indications: Abnormal level of blood mineral Take 1 tablet by mouth every afternoon. 90 tablet 3 01/06/2024 01/05/2025 Active Start: 12-14-2021 End: 11-19-2022 take 325 mg by mouth once daily at breakfast 325 mg, Oral, Daily with breakfast, First dose on Tue11/19/22 at 0800 Start: 04-21-2021 End: 03-07-2023 take 1 tablet by mouth once daily ferrous sulfate 325 mg (65 mg iron) tablet Indications: Abnormal level of blood mineral TAKE 1 TABLET BY MOUTH EVERY DAY 90 tablet 1 03/07/2023 Active Start: 11-12-2020 take 1 tablet by mouth once da danelle ferrous sulfate 325 mg (65 mg iron) tablet Indications: Abnormal level of blood mineral TAKE 1 TABLET BY MOUTH EVERY DAY 90 tablet 1 11/12/2020 Active Start: 08-15-2020 take 1 tablet by mouth once da danelle ferrous sulfate 325 mg (65 mg iron) tablet Take 1 tablet by mouth once daily. 0 08/15/2020 Active Comment on above: Take 1 tablet by chelo th once daily. TAKE 1 TABLET BY CHELO TH EVERY DAY flumazenil 0.1 mg/ml injectable solution (2 sources) Benzodiazepine Antagonist Start: 06-26-20 End: 06-26-20 glimepiride 1 mg oral tablet (1 source) Sulfonylurea End: 08-25-19 take 0.5 mg by mouth once daily glimepiride (AMARYL) 1 MG tablet Take 0.5 mg by mouth Daily with supper 0 08/25/2019 Discontinued glucagon (rdna) 1 mg injection (7 sources) Antihypoglycemic Agent Start: 06-25-20 End: 07-04-20 Start: 05-29-2024 End: 06-01-2024 1 mg, IntraMUSCular, PRN, lo w blood sugar, Blood glucose less than 70 mg/dL and patient NOT ALERT or NPO and does not have IV access., Starting on Tue05/29/24 at 2052, After administration, attempt intravenous access and start D5W at 100 mL/hr. Repeat blood glucose in 15 minutes x2 and notify provider. Start: 01-28-2024 End: 02-02-2024 Start: 12-13-2021 take 1 mL intravenou sly every hour 1 mg, IntraMUSCular, PRN, Starting on Tue12/13/21 at 1807, Until Discontinued, Low blood sugar, Blood glucose less than 70 mg/dL and patient NOT ALERT or NPO and does not have IV access. After administration, attempt intravenous access and start D5W at 100 mL/hr. Repeat blood glucose in 15 minutes x2 and notify provider. 150 ml glucose 50 mg/ml inje ction (15 sources) Start: 06-25-2024 End: 07-04-2024 Start: 06-25-2024 End: 07-04-2024 Start: 05-29-2024 End: 06-01-2024 12.5 g, IntraVENous, PRN, lo w blood sugar, Blood glucose less than 70 mg/dL and patient NOT ALERT or NPO., Starting on Tue05/29/24 at 2052, If patient does not respond within 5 minutes, repeat dose x1. Start D5W at 100 mL/hour until ordering provider can be reached. Repeat blood glucose in 15 minutes. If blood glucose is less than 70 mg/dL, repeat treatment and recheck blood glucose in 15 minutes x2. If using Glucostabilizer, dose as instructed per system. Start: 05-29-2024 End: 06-01-2024 100 mL/hr, IntraVENous, PRN, Blood sugar less than 70mg/dL, Starting on Tue05/29/24 at 2053, Start infusion following administration of dextrose 50% or glucagon. Start: 01-28-2024 End: 02-02-2024 Start: 01-28-2024 End: 02-02-2024 Start: 12-13-2021 15 g, Oral, KS N, Starting on Tue12/13/21 at 1807, Until Discontinued, Low blood sugar If blood glucose less than 50 mg/dL and patient ALERT and TOLERATING PO, give 2 tubes glucose gel. If blood glucose less than 70 mg/dL and patient ALERT and TOLERATING PO, give 1 tube glucose gel. Repeat blood glucose in 15 minutes. If blood glucose is less than 70 mg/dL, repeat treatment and recheck blood glucose in 15 minutes x2 and notify provider. Start: 12-13-2021 12.5 g, IntraV ENous, PRN, Starting on Tue12/13/21 at 1807, Until Discontinued, Low blood sugar, Blood glucose less than 70 mg/dL and patient NOT ALERT or NPO. If patient does not respond within 5 minutes, repeat dose x1. Start D5W at 100 mL/hour until ordering provider can be reached. Repeat blood glucose in 15 minutes. If blood glucose is less than 70 mg/dL, repeat treatment and recheck blood glucose in 15 minutes x2. If using Glucostabilizer, dose as instructed per system. Start: 12-13-2021 100 mL/hr, Int raVENous, PRN, Low blood sugar, Starting on Tue12/13/21 at 1807 Start infusion following administration of dextrose 50% or glucagon. insulin lispro 100 unt/ml in jectable solution (5 sources) Insulin Analog Start: 06-26-2024 End: 07-04-2024 Start: 12-13-2021 insulin lispro (HUMALOG) injection vial 0-6 Units Insulin Lispro (Humalog) injection 0-12 Units (2 sources) Start: 01-28-2024 End: 02-02-2024 Insulin Lispro (Humalog) injection 0-12 Units Insulin Lispro (Humalog) injection 0-6 Units (2 sources) Start: 05-30-2024 End: 06-01-2024 Insulin Lispro (Humalog) injection 0-6 Units labetalol hydrochloride 5 mg/ml injectable solution (2 sources) beta-Adrenergic Partha Start: 06-29-2024 End: 07-04-2024 take 20 mg intravenously every six hours as needed for hypertension linagliptin 5 mg oral tablet (4 sources) Dipeptidyl Peptidase 4 Inhibitor Start: 06-26-2024 End: 07-04-2024 Start: 05-30-2024 End: 06-01-2024 5 mg, Oral, Daily, First dos e on Tue05/30/24 at 0900, Substituted for SITagliptin (JANUVIA)., On hold since Tue05/30/2024 at 1700 until manually unheld 12 hr loratadine 5 mg / pseudoephedrine sulfate 120 mg extended release oral tablet (9 sources) alpha-Adrenergic Agonist Start: 09-03-2021 take 1 tablet by mouth every twelve hours as needed loratadine-pseudoephedrine ER (CLARITIN-D 12 HOUR) 5-120 mg per tablet Take 1 tablet by mouth twice daily as needed (for allergy symptoms). 60 tablet 3 09/03/2021 Active Comment on above: Take 1 tablet by chelo twice daily as needed (for allergy symptoms). losartan potassium 25 mg oral tablet (20 sources) Angiotensin 2 Receptor Partha Start: 08-19-2022 End: 01-05-2025 take 1 tablet by mouth once losartan (COZAAR) 25 mg tablet Take 1 tablet by mouth every afternoon. 90 tablet 3 01/06/2024 04/27/2024 Discontinued (Course of therapy completed) Start: 02-22-2022 End: 05-03-2022 take 1 tablet by mouth once daily losartan (COZAAR) 50 mg tablet Indications: Primary hypertension TAKE 1 TABLET BY MOUTH EVERY DAY 90 tablet 3 02/22/2022 05/03/2022 Discontinued (Course of therapy completed) Start: 03-11-2021 End: 06-09-2021 take 1 tablet by mouth once daily losartan (COZAAR) 50 mg tablet Indications: Primary hypertension Take 1 tablet by mouth once daily. 90 tablet 3 03/11/2021 Active Start: 06-14-2020 End: 02-25-2021 take 1 tablet by mouth once daily losartan (COZAAR) 50 mg tablet Take 50 mg by mouth once daily. 0 06/14/2020 02/25/2021 Discontinued End: 05-30-2024 take 2 tablets by mouth once daily losartan (Cozaar) 25 MG tablet Take 50 mg by mouth daily. 05/30/2024 Discontinued (Med list cleanup) Comment on above: Take 50 mg by mouth once daily. Take 1 tablet by chelo th once daily. TAKE 1 TABLET BY CHELO TH EVERY DAY Take 25 mg by mouth once daily. magnesium gluconate 500 mg oral tablet (2 sources) Start: 02-01-2024 End: 02-02-2024 take 500 mg by mouth once daily 500 mg, Oral, Daily, First dose on Tue02/01/24 at 0900 50 ml magnesium sulfate 40 mg/ml injection (3 sources) Start: 01-31-2024 End: 01-31-2024 2,000 mg, IntraVENous, at 25 mL/hr, Administer over 2 Hours, Once, On Tue01/31/24 at 0800, For 1 dose, Recommended infusion rate not to exceed 1,000 mg (milligrams) per hour. 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 180 tablet 3 01/06/2024 04/27/2024 Discontinued (Course of therapy completed) Start: 12-14-2021 take 500 mg by mouth once daily at breakfast 500 mg, Oral, DAILY WITH BREAKFAST, First dose on 12/14/21 at 0800, Until Discontinued Start: 12-13-2021 take 1000 mg by mout h once daily at dinner 1,000 mg, Oral, DAILY WITH DINNER, First dose on 12/13/21 at 1830, Until Discontinued Start: 04-21-2021 End: 07-29-2021 take 1 tablet by mouth twice daily metFORMIN (GLUCOPHAGE) 1,000 mg tablet TAKE 1 TABLET BY MOUTH TWICE A DAY 180 tablet 0 07/29/2021 Active Start: 08-29-2020 End: 02-23-2021 take 1 tablet by mouth twice daily metFORMIN (GLUCOPHAGE) 1,000 mg tablet TAKE 1 TABLET BY MOUTH TWICE A DAY 180 tablet 0 02/23/2021 Active Start: 05-15-2020 End: 12-22-2021 take 1 tablet by mouth once daily metFORMIN (GLUCOPHAGE) 1,000 mg tablet Take 1,000 mg by mouth once daily. 0 05/15/2020 08/29/2020 Discontinued End: 11-26-2020 take 1 tablet by mouth once daily at breakfast metFORMIN (GLUCOPHAGE) 500 MG tablet Take 500 mg by mouth daily (with breakfast) 0 Active Comment on above: TAKE 1 TABLET BY CHELO TWICE A DAY Take 500 mg by mouth once daily. Take 1,000 mg by chelo th once daily. Take 1 tablet by chelo twice daily with meals. TAKE 1 TABLET BY CHELO TWICE A DAY WITH MEALS minocycline 50 mg oral capsule (20 sources) Tetracycline-clas s Drug Start: 1 End: 2 take 1 capsule by mouth once daily in the morning minocycline (MINOCIN, DYNACIN) 50 mg capsule TAKE 1 CAPSULE BY MOUTH EVERY DAY IN THE MORNING 90 capsule 1 08/05/2021 Active Comment on above: TAKE 1 CAPSULE BY MO [facility] EVERY DAY IN THE MORNING 24 hr mirabegron 25 mg extended release oral tablet (20 sources) beta3-Adrenergic Agonist Start: 3 End: 5 take 1 tablet by mouth once daily mirabegron (MYRBETRIQ) 25 mg Tb24 Indications: Mixed incontinence Take 1 tablet by mouth once daily. 90 tablet 3 01/06/2024 04/27/2024 Discontinued (Course of therapy completed) Comment on above: Take 1 tablet by chelo once daily. Take 25 mg by mouth once daily. take 1 tablet by chelo th every day 1 ml morphine sulfate 4 mg/ml cartridge (1 source) Opioid Agonist Start: 0 End: 0 morphine injection 2 mg MULTIVITAMIN ORAL (20 sources) End: 4 MULTIVITAMIN ORAL Take by mouth. 04/27/2024 Discontinued (Course of therapy completed) MULTIVITAMIN ORA L Take by mouth. Active MULTIVITAMIN ORA L Take by mouth. 0 Active Comment on above: Take by mouth. mupirocin 0.02 mg/mg topical ointment (2 sources) RNA Synthetase Inhibitor Antibacterial Start: 06-27-2024 End: 07-02-2024 1 ml naloxone hydrochloride 0.4 mg/ml injection (4 sources) Opioid Antagonist Start: 07-01-2024 End: 07-04-2024 Start: 06-26-2024 End: 06-26-2024 omega-3 acid ethyl esters (fpc) 1200 mg oral capsule (1 source) End: 08-25-2019 take 1 capsule by mouth once daily Pearson-3 Fatty Acids (FISH OIL) 1200 MG CAPS Take 1,200 mg by mouth daily 0 08/25/2019 Discontinued omeprazole 40 mg delayed release oral capsule (20 sources) Proton Pump Inhibitor Start: 11-06-2020 End: 01-05-2025 take 1 capsule by mouth once omeprazole (PRILOSEC) 40 mg capsule Indications: Gastro-esophageal reflux disease with esophagitis, without bleeding Take 1 capsule by mouth every afternoon. 90 capsule 3 01/06/2024 04/27/2024 Discontinued (Course of therapy completed) take 2 capsules by mouth once da danelle omeprazole (PRILOSEC) 20 MG capsule Take 40 mg by mouth daily 0 Active Comment on above: Take 40 mg by mouth once daily. TAKE [address] [facility] EVERY DAY ondansetron 4 mg disintegrating oral tablet (1 source) Serotonin-3 Receptor Antagonist Start: 08-25-19 End: 08-25-19 ondansetron (ZOFRAN-ODT) disintegrating tablet 4 mg ondansetron ODT (Zofran-ODT) disintegrating tablet 4 mg (6 sources) Start: 05-30-20 End: 06-01-20 take 1 tablet by mouth every eight hours as needed for nausea and vomiting ondansetron ODT (Zofran-ODT) disintegrating tablet 4 mg Start: 01-28-2024 End: 02-02-2024 take 1 tablet by mouth every eight hours as needed for nausea and vomiting ondansetron ODT (Zofran-ODT) disintegrating tablet 4 mg Start: 11-18-2022 End: 11-19-2022 take 1 tablet by mouth every eight hours as needed for nausea and vomiting ondansetron ODT (Zofran-ODT) disintegrating tablet 4 mg oxyCODONE hydrochloride 5 mg oral tablet (6 sources) Opioid Agonist Start: 07-01-2024 End: 07-04-2024 take 2.5 mg by mouth every six hours as needed for pain and pain Start: 02-02-2024 End: 02-02-2024 take 5 mg by mouth once 5 mg, Oral, Once, On 01/07 at 0115, For 1 dose Start: 02-01-2024 End: 02-01-2024 take 2.5 mg by mouth once 2.5 mg, Oral, Once, On Tue at 1845, For 1 dose pantoprazole 40 mg delayed release oral tablet (7 sources) Proton Pump Inhibitor Start: 05-30-2024 End: 06-01-2024 take 40 mg by mouth once daily before breakfast 40 mg, Oral, Daily before breakfast, First dose on Tue05/30/24 at 0600, Substituted for omeprazole (Prilosec). Do not crush, chew, or split. Start: 01-29-2024 End: 02-02-2024 take 40 mg by mouth once daily before breakfast 40 mg, Oral, Daily before breakfast, First dose on Tue01/29/24 at 0600, Substituted for omeprazole (Prilosec). Do not crush, chew, or split. Start: 11-19-2022 End: 11-19-2022 take 40 mg by mouth once daily before breakfast 40 mg, Oral, Daily before breakfast, First dose on Tue11/19/22 at 0700 Do not crush, chew, or split. Start: 12-14-2021 take 40 mg by mouth once daily before breakfast 40 mg, Oral, DAILY BEFORE BREAKFAST, First dose on Tue12/14/21 at 0700, Until Discontinued Do not crush or break. Substituted for Omeprazole (PRILOSEC). perflutren lipid microspheres (DEFINITY) injection 1.65 mg (1 source) Start: 12-14-2021 End: 12-17-2021 perflutren lipid microspheres (DEFINITY) injection 1.65 mg perflutren lipid microspheres (Definity) injection 1.65 mg (2 sources) Start: 12-08-2022 End: 12-08-2022 perflutren lipid microspheres (Definity) injection 1.65 mg polyethylene glycol 3350 51434 mg powder for oral solution (9 sources) Osmotic Laxative Start: 06-25-2024 End: 07-04-2024 take 17 g by mouth every twenty-four hours as needed for constipation Start: 05-30-2024 End: 06-01-2024 take 17 g by mouth every twenty-four hours as needed for constipation 17 g, Oral, Daily PRN, constipation, Starting on 05/30/24 at 0053, 1st line for treatment of constipation - give scheduled if no bowel movement in past 24 hours. Start: 01-28-2024 End: 02-02-2024 take 17 g by mouth every twenty-four hours as needed for constipation 17 g, Oral, Daily PRN, constipation, Starting on 01/28/24 at 1939, 1st line for treatment of constipation - give scheduled if no bowel movement in past 24 hours. Start: 11-18-2022 End: 11-19-2022 take 17 g by mouth every twenty-four hours as needed for constipation polyethylene glycol (PEG) 3350 (Miralax) packet 17 g Start: 12-18-2021 polyethylene g lycol (GLYCOLAX) packet 17 g potassium chloride 20 meq po wder for oral solution (20 sources) Start: 06-27-2024 End: 06-27-2024 Start: 12-17-2021 End: 12-17-2021 potassium chloride (KLOR-CON M) extended release tablet 20 mEq Start: 12-13-2021 End: 02-02-2024 Start: 03-11-2021 End: 04-27-2024 take 1 capsule by mouth once daily as needed potassium chloride SR (MICRO-K) 10 mEq CR capsule Indications: Hypokalemia TAKE 1 CAPSULE BY MOUTH EVERY DAY NEEDED WITH LASIX 90 capsule 3 12/14/2022 04/27/2024 Discontinued (Course of therapy completed) Start: 06-14-2020 End: 02-25-2021 take 1 capsule by mouth once daily as needed potassium chloride SR (MICRO-K) 10 mEq CR capsule TAKE 1 CAPSULE BY MOUTH EVERY DAY NEEDED WITH LASIX 0 06/14/2020 02/25/2021 Discontinued Comment on above: TAKE 1 CAPSULE BY MO [facility] EVERY DAY NEEDED WITH LASIX sodium chloride 0.111 meq/ml nasal solution (20 sources) Start: 06-30-2024 End: 07-04-2024 Start: 06-25-2024 End: 06-25-2024 Start: 06-25-2024 End: 07-04-2024 Start: 06-25-2024 End: 07-04-2024 take 5-40 mL intravenously every twelve hours Start: 01-28-2024 End: 01-30-2024 take 75 mL intravenously every hour 75 mL/hr, IntraVENous, Continuous, Starting on 01/28/24 at 1945 Start: 11-18-2022 End: 11-19-2022 sodium chloride 0.9 % infusi on Start: 11-17-2022 End: 11-18-2022 sodium chloride 0.9 % bolus 500 mL Start: 12-13-2021 take 1 dose intraven ously twice daily 5-40 mL, IntraVENous, EVERY 12 HOURS SCHEDULED (2 times per day), First dose on 12/13/21 at 2100, Until Discontinued For Line Patency: Peripheral IV = 5 mL; Midline or Central Line = 10 mL/lumen. If following IV push medication, administer flush at same rate as the IV push. Flush volume is determined by type of infusion therapy being given. For non-viscous solutions use: Peripheral IV = 5 mL Midline or Central Line = 10 mL/lumen For viscous solutions (i.e. blood components, parenteral nutrition, contrast media, or after obtaining blood sample) use: Peripheral IV = 10 mL Midline or Central Line = 20 mL/lumen Start: 12-13-2021 IntraVENous, a t 5-250 mL/hr, PRN, if patient receiving piggyback infusions and maintenance fluids are not ordered OR KVO fluids to protect IV site / prevent frequent line interruptions/ long duration, Starting on 12/13/21 at 1807 For piggyback infusion, administer at same rate as piggyback for a total of 25 mL. Enter 25 mL into dose field and piggyback rate into rate field of order. If piggyback is infusing at a rate less than 100 mL/hr, enter 25 mL into dose field and 100 mL/hr into rate field of order. For KVO fluids, enter rate of 20 mL/hr or less into rate field of order. Start: 12-13-2021 take 5-40 mL intrave nously once as needed 5-40 mL, IntraVENous, PRN, Starting on [place] 12/13/21 at 1807, Until Discontinued, Line Care, After every IV line use For Line Patency: Peripheral IV = 5 mL; Midline or Central Line = 10 mL/lumen. If following IV push medication, administer flush at same rate as the IV push. Flush volume is determined by type of infusion therapy being given. For non-viscous solutions use: Peripheral IV = 5 mL Midline or Central Line = 10 mL/lumen For viscous solutions (i.e. blood components, parenteral nutrition, contrast media, or after obtaining blood sample) use: Peripheral IV = 10 mL Midline or Central Line = 20 mL/lumen Start: 12-13-2021 End: 12-13-2021 0.9 % sodium chloride bolus ticagrelor 90 mg oral tablet (20 sources) Start: 12-30-2017 End: 05-03-2022 take 1 tablet by mouth twice daily BRILINTA 90 mg tablet Indications: Primary hypertension TAKE 1 TABLET BY MOUTH TWICE A DAY 180 tablet 3 12/24/2021 05/03/2022 Discontinued (Course of therapy completed) Comment on above: Take 90 mg by mouth twice daily. Take 1 tablet by chelo twice daily. TAKE 1 TABLET BY [facility] TWICE A DAY 200 ml vancomycin 5 mg/ml injection (4 sources) Glycopeptide Antibacterial Start: 05-31-2024 End: 05-31-2024 1,000 mg, IntraVENous, at 133.3 mL/hr, Administer over 90 Minutes, Once, On [facility] 05/31/24 at 0830, For 1 dose, Preprocedure, Please send to EP lab premix bag, Suspected Indication (Select all that apply): Surgical Prophylaxis Start: 01-28-2024 End: 01-28-2024 vancomycin (Vancocin) 1,000 mg in sodium chloride 0.9 % 250 mL IVPB (2 sources) Start: 01-29-2024 End: 01-31-2024 1,000 mg, IntraVENous, at 16 6.7 mL/hr, Administer over 90 Minutes, Every 24 hours, First dose on Tue01/29/24 at 1900, ADD-[place] bag, Suspected Indication (Select all that apply): Skin and Soft Tissue Infection vancomycin (VANCOCIN) 1250 m g in sodium chloride 0.9% 250 mL IVPB (1 source) Start: 12-18-2021 End: 12-20-2021 vancomycin (VANCOCIN) 1250 m g in sodium chloride 0.9% 250 mL IVPB vancomycin (VANCOCIN) 1500 m g in dextrose 5 % 250 mL IVPB (2 sources) Start: 12-15-2021 End: 12-17-2021 vancomycin (VANCOCIN) 1500 m g in dextrose 5 % 250 mL IVPB Start: 12-13-2021 End: 12-14-2021 vancomycin (VANCOCIN) 1500 m g in dextrose 5 % 250 mL IVPB vitamin b12 0.1 mg oral tabl et (20 sources) Vitamin B12 Start: 06-26-2024 End: 07-04-2024 Start: 05-30-2024 End: 06-01-2024 take 100 ug by mouth once daily 100 mcg, Oral, Daily, First dose on Tue05/30/24 at 0900 Start: 08-23-2023 take 1 tablet by chelo th once daily VITAMIN B-12 1,000 mcg tab Indications: Deficiency of other specified B group vitamins take 1 tablet by mouth every day 90 tablet 3 08/23/2023 Active Start: 12-13-2022 End: 01-05-2025 take 1 tablet by mouth once daily Cyanocobalamin 1,000 mcg TbER Indications: Vitamin B12 deficiency Take 1 tablet by mouth once daily. 90 tablet 3 01/06/2024 04/27/2024 Discontinued (Course of therapy completed) Start: 12-13-2022 End: 03-30-2023 take 1 tablet by mouth once VITAMIN B-12 1,000 mcg tab Take 1 tablet by mouth every afternoon. 0 12/13/2022 Active Comment on above: Take 1 tablet by chelo th once daily. Take 1 tablet by chelo th every afternoon. take 1 tablet by chelo th every day vitamin e 180 mg oral capsule (20 sources) Start: 01-29-2024 End: 02-02-2024 take 180 mg by mouth once daily 180 mg (400 Units), Oral, Daily, First dose on 01/29/24 at 0900 Start: 12-13-2021 take 800 [IU] by chelo th once daily 800 Units, Oral, DAILY, First dose on 12/13/21 at 1830, Until Discontinued Vitamin E, dl, a cetate, (VITAMIN E) 400 unit capsule Take 800 Units by mouth. Active take 1 capsule by mo [facility] once daily alpha tocopherol (Vitamin E) 100 units capsule Take 100 Units by mouth daily. 0 Active Vitamin E, dl, a cetate, (VITAMIN E) 400 unit capsule Take 800 Units by mouth. 0 Active take [address] [facility] [facility] once daily vitamin E 400 UNIT capsule Take 800 Units by mouth daily 0 Active Vitamin E, dl, a cetate, (VITAMIN E) 400 unit capsule Take 800 Units by mouth. 0 Active Comment on above: Take 800 Units by mo [facility]. Zinc (19 sources) End: 05-03-2022 ZINC ORAL Take by mouth. 0 05/03/2022 Discontinued ZINC ORAL Take b y mouth. 0 Active Comment on above: Take by mouth. (10 sources) Start: 06-27-2024 End: 07-04-2024 Start: 06-26-2024 End: 07-04-2024 [Order 1 Start] Name: pantop razole (ProtoNix) EC tablet 40 mg Signed Summary: 40 mg, Oral, Nightly, First dose on Tue06/26/24 at 2100, Do not crush, chew, or split. [Order 1 End] [Order 2 Start] Name: pantoprazole (ProtoNix) 40 mg in sodium chloride (PF) 0.9 % 10 mL injection Signed Summary: 40 mg, IntraVENous, Administer over 2 Minutes, Nightly, First dose on Tue06/26/24 at 2100, Give only if unable to tolerate po. [Order 2 End] Start: 06-25-2024 End: 07-04-2024 take 4 mg by mouth every eight hours as needed for nausea and vomiting [Order 1 Start] Name: ondansetron ODT (Zofran-ODT) disintegrating tablet 4 mg Signed Summary: 4 mg, Oral, Every 8 hours PRN, nausea, vomiting, Starting on Tue06/25/24 at 2147, 1st Line. If inadequate response within 60 minutes, proceed to next-line agent or contact provider if no further options ordered. Patient should allow tablet to dissolve on tongue. Do not remove from blister pack until just before administering. [Order 1 End] [Order 2 Start] Name: ondansetron (Zofran) injection 4 mg Signed Summary: 4 mg, IntraVENous, Every 6 hours PRN, nausea, vomiting, Starting on Tue06/25/24 at 2147, 1st Line. Give IV if patient is unable to take orally. If inadequate response within 60 minutes, proceed to next-line agent or contact provider if no further options ordered. [Order 2 End] Start: 06-25-2024 End: 07-04-2024 take 650 mg by mouth every six hours as needed for pain and fever [Order 1 Start] Name: acetaminophen (Tylenol) tablet 650 mg Signed Summary: 650 mg, Oral, Every 6 hours PRN, mild pain (1-3), fever, For temp greater than 100.4 F (38 C), Starting on Tue06/25/24 at 2147, Maximum dose of acetaminophen is 4000 mg from all sources in 24 hours. [Order 1 End] [Order 2 Start] Name: acetaminophen (Tylenol) suppository 650 mg Signed Summary: 650 mg, Rectal, Every 6 hours PRN, mild pain (1-3), fever, For temp greater than 100.4 F (38 C), Starting on Tue06/25/24 at 2147, Administer if oral route cannot be used. Maximum dose of acetaminophen is 4000 mg from all sources in 24 hours. [Order 2 End] Start: 06-25-2024 End: 06-25-2024 Problems Active Problems Problem Classification Problem Date Documented Date Episodic/Chronic Chronic kidney disease (20 sources) Chronic kidney disease stage 1; Translations: [Chronic kidney disease, stage 1] Onset: 12-01-2022 Chronic Chronic kidney disease (2 sources) Chronic kidney disease; Translations: [Chronic kidney disease, stage 3b (HCC)] Onset: 12-01-2022 Coagulation and hemorrhagic disorders (20 sources) Platelet count below reference range; Translations: [Thrombocytopenia, unspecified] Onset: 12-26-2022 12-26-2022 Chronic Complication of device; implant or graft (20 sources) Arteriosclerosis of coronary artery bypass graft; Translations: [Atherosclerosis of coronary artery bypass graft(s) without angina pectoris] Onset: 09-30-2022 09-30-2022 Chronic Conduction disorders (4 sources) Second degree atrioventricular block; Translations: [Atrioventricular block, second degree] Onset: 11-29-2024 01-18-2025 Chronic Congestive heart failure; nonhypertensive (20 sources) Congestive heart failure; Translations: [Heart failure, unspecified] Onset: 12-01-2022 Chronic Coronary atherosclerosis and other heart disease (20 sources) Angina pectoris; Translations: [Other forms of angina pectoris] Onset: 12-26-2017 12-26-2017 Chronic Diabetes mellitus with complications (7 sources) 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; Translations: [Type 2 diabetes mellitus with diabetic chronic kidney disease] Onset: 11-26-2020 Chronic Diabetes mellitus without complication (20 sources) Type 2 diabetes mellitus; Translations: [Type 2 diabetes mellitus with unspecified complications] Onset: 08-28-2020 08-28-2020 Chronic Diabetes mellitus without complication (2 sources) Diabetes mellitus without complication; Translations: [Type 2 diabetes mellitus with stage 3 chronic kidney disease, without long-term current use of insulin, unspecified whether stage 3a or 3b CKD (HCC)] Onset: 11-26-2020 Disorders of lipid metabolism (20 sources) Mixed hyperlipidemia; Translations: [Mixed hyperlipidemia] Onset: 08-28-2020 08-28-2020 Chronic E Codes: Fall (1 source) Fall Esophageal disorders (6 sources) Gastro-esophageal reflux disease with esophagitis; Translations: [Gastro-esophageal reflux disease with esophagitis, without bleeding] Chronic Esophageal disorders (1 source) Esophageal disorders; Translations: [Gastro-esophageal reflux disease with esophagitis, without bleeding] Onset: 01-06-2024 Essential hypertension (20 sources) Hypertensive disorder; Translations: [Essential (primary) hypertension] Onset: 08-28-2020 08-28-2020 Chronic Genitourinary symptoms and ill-defined conditions (3 sources) Incontinence; Translations: [Mixed incontinence] Onset: 01-06-2024 09-28-2023 Chronic Heart valve disorders (20 sources) Aortic stenosis, non-rheumatic ; Translations: [Nonrheumatic aortic (valve) stenosis] Onset: 09-30-2022 09-30-2022 Chronic Hepatitis (8 sources) Nonalcoholic steatohepatitis; Translations: [Nonalcoholic steatohepatitis (BARRON)] Onset: 03-21-2024 03-21-2024 Chronic Hypertension with complications and secondary hypertension (1 source) Hypertensive chronic kidney disease with stage 1 through stage 4 chronic kidney disease, or unspecified chronic kidney disease; Translations: [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)] Onset: 01-06-2024 Chronic Mood disorders (20 sources) Depressive disorder; Translations: [Other specified depressive episodes] Onset: 12-11-2023 12-07-2023 Chronic Osteoarthritis (1 source) Osteoarthritis; Translations: [Unspecified osteoarthritis, unspecified site] 03-15-2024 Chronic Other connective tissue disease (1 source) Muscle pain; Translations: [Myalgia, unspecified site] Episodic Other connective tissue disease (3 sources) Disorder of soft tissue; Translations: [Other specified soft tissue disorders] 03-07-2023 Episodic Other connective tissue disease (1 source) Swelling of right lower limb; Translations: [Other specified soft tissue disorders] 03-07-2023 Episodic Other liver diseases (2 sources) Liver disease, unspecified; Translations: [Liver disease, unspecified] Onset: 10-11-2024 Chronic Other liver diseases (2 sources) Unspecified cirrhosis of liver; Translations: [Unspecified cirrhosis of liver] Onset: 08-15-2024 Chronic Other lower respiratory disease (8 sources) Hypoxia; Translations: [Nocturnal hypoxia] Onset: 08-28-2020 08-28-2020 Episodic Other nervous system disorders (1 source) Metabolic encephalopathy; Translations: [Metabolic encephalopathy] Onset: 11-08-2024 Chronic Other nutritional; endocrine; and metabolic disorders (20 sources) Obese class I; Translations: [Obesity, unspecified] Onset: 12-01-2022 12-01-2022 Chronic Other nutritional; endocrine; and metabolic disorders (16 sources) Obesity; Translations: [Obesity, unspecified] Onset: 12-01-2022 03-07-2023 Chronic Other nutritional; endocrine; and metabolic disorders (1 source) Body mass index (BMI) 32.0-32.9, adult; Translations: [Class 1 obesity with body mass index (BMI) of 32.0 to 32.9 in adult, unspecified obesity type, unspecified whether serious comorbidity present] Onset: 06-11-2024 Chronic Other nutritional; endocrine; and metabolic disorders (2 sources) Obesity, unspecified; Translations: [Class 1 obesity with body mass index (BMI) of 33.0 to 33.9 in adult, unspecified obesity type, unspecified whether serious comorbidity present] Onset: 02-27-2024 Chronic Other nutritional; endocrine; and metabolic disorders (1 source) Body mass index (BMI) 33.0-33.9, adult; Translations: [Class 1 obesity with body mass index (BMI) of 33.0 to 33.9 in adult, unspecified obesity type, unspecified whether serious comorbidity present] Onset: 04-27-2024 Chronic Other nutritional; endocrine; and metabolic disorders (1 source) Body mass index (BMI) 34.0-34.9, adult; Translations: [Class 1 obesity with body mass index (BMI) of 34.0 to 34.9 in adult, unspecified obesity type, unspecified whether serious comorbidity present] Onset: 02-27-2024 Chronic Other upper respiratory disease (20 sources) Seasonal allergy; Translations: [Other seasonal allergic rhinitis] Onset: 11-26-2020 Chronic Other upper respiratory disease (3 sources) Seasonal allergic rhinitis; Translations: [Other seasonal allergic rhinitis] Chronic Other upper respiratory disease (1 source) Other seasonal allergic rhinitis; Translations: [Other seasonal allergic rhinitis] Onset: 01-06-2024 Chronic Other upper respiratory infections (1 source) Acute maxillary sinusitis; Translations: [Acute maxillary sinusitis, unspecified] Episodic Residual codes; unclassified (20 sources) Hypoxia; Translations: [Idiopathic sleep related nonobstructive alveolar hypoventilation] Onset: 08-28-2020 08-28-2020 Chronic Residual codes; unclassified (20 sources) Localized edema; Translations: [Bilateral lower limb edema] Onset: 05-03-2022 05-03-2022 Episodic Residual codes; unclassified (1 source) Other specified health status; Translations: [Other drug allergy] Episodic Residual codes; unclassified (3 sources) Altered mental status; Translations: [Altered mental status, unspecified] Episodic Thyroid disorders (20 sources) Acquired hypothyroidism; Translations: [Hypothyroidism, unspecified] Onset: 08-28-2020 08-28-2020 Chronic Unclassified (1 source) Contusion of left knee Unclassified (1 source) Class 1 obesity with body mass index (BMI) of 32.0 to 32.9 in adult, unspecified obesity type, unspecified whether serious comorbidity present; Translations: [Class 1 obesity with body mass index (BMI) of 32.0 to 32.9 in adult, unspecified obesity type, unspecified whether serious comorbidity present] Onset: 06-11-2024 Unclassified (1 source) Acute cough; Translations: [Acute cough] Onset: 12-28-2024 Past or Other Problems Problem Classification Problem Date Documented Da te Episodic/Chronic Acute and unspecified renal failure (20 sources) Acute injury of kidney; Translations: [Acute kidney failure, unspecified] Onset: 3 Episodic Cardiac dysrhythmias (19 sources) Symptomatic sinus bradycardia; Translations: [Bradycardia, unspecified] Onset: 4 05-31-2024 Episodic Deficiency and other anemia (9 sources) Anemia; Translations: [Anemia, unspecified] Onset: 4 Episodic Fluid and electrolyte disorders (6 sources) Hypokalemia; Translations: [Hypokalemia] Onset: 5 Episodic Gastrointestinal hemorrhage (1 source) Gastrointestinal hemorrhage, unspecified; Translations: [Gastrointestinal hemorrhage, unspecified] Onset: 5 Episodic Genitourinary symptoms and ill-defined conditions (3 sources) Increased frequency of urination; Translations: [Frequency of micturition] Onset: 4 03-07-2023 Episodic Heart valve disorders (20 sources) Systolic murmur; Translations: [Cardiac murmur, unspecified] Onset: 3 12-26-2022 Episodic Hemorrhoids (8 sources) Hemorrhoids; Translations: [Unspecified hemorrhoids] Onset: 4 03-21-2024 Episodic Nutritional deficiencies (2 sources) Cobalamin deficiency; Translations: [Deficiency of other specified B group vitamins] Onset: 4 01-06-2024 Episodic Other and unspecified benign neoplasm (8 sources) History of polyp of colon; Translations: [Personal history of colonic polyps] Onset: 4 03-21-2024 Episodic Other diseases of kidney and ureters (8 sources) Kidney disease; Translations: [Disorder of kidney and ureter, unspecified] Onset: 4 03-21-2024 Episodic Other gastrointestinal disorders (8 sources) Hepatic flexure syndrome; 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] Onset: 4 03-21-2024 Episodic Other gastrointestinal disorders (8 sources) Dysphagia; Translations: [Dysphagia, unspecified] Onset: 4 03-21-2024 Episodic Other infections; including parasitic (20 sources) Infection of bloodstream; Translations: [Unspecified infectious disease] Onset: 2 01-24-2022 Episodic Other injuries and conditions due to external causes (1 source) Closed injury of head Episodic Other screening for suspected conditions (not mental disorders or infectious disease) (14 sources) Abnormal level of blood mineral; Translations: [Abnormal level of blood mineral] Onset: 4 Episodic Phlebitis; thrombophlebitis and thromboembolism (20 sources) Deep venous thrombosis; Translations: [Deep venous thrombosis of lower extremity] Onset: 1 08-28-2020 Episodic Residual codes; unclassified (20 sources) Edema, generalized; Translations: [Generalized edema] Onset: 1 08-28-2020 Episodic Residual codes; unclassified (8 sources) Family history of cancer of colon; Translations: [Family history of malignant neoplasm of digestive organs] Onset: 4 03-21-2024 Episodic Residual codes; unclassified (2 sources) Altered mental status, unspecified; Translations: [Altered mental status, unspecified] Onset: 4 Episodic Skin and subcutaneous tissue infections (20 sources) Cellulitis of skin; Translations: [Cellulitis, unspecified] Onset: 4 03-07-2023 Episodic Sprains and strains (1 source) Shoulder strain Episodic Superficial injury; contusion (2 sources) Contusion of rib; Translations: [Contusion of eyelid] Episodic Urinary tract infections (20 sources) Urinary tract infectious disease; Translations: [Urinary tract infection, site not specified] Onset: 2 Episodic Results Test Name Value Interpretation Reference Range Facility Progress Noteon 01-11-2025 Progress Note Normal [facility] Basic Metabolic Profile (BMP )on 01-10-2025 BUN/CRE 18.5 RATIO Normal 10-20 [facility] Comment on above: Order Comment: - Performed By: #### L [id number] #### [facility] [address] [place], [address] Calcium [Mass/Vol] 9.0 mg/dL Normal 7.6-11.0 [facility] Comment on above: Order Comment: - Performed By: #### L 500.2500 #### [facility] [address] [place], [address] Chloride [Moles/Vol] 104 mmol/L Normal 98-108 [facility] Comment on above: Order Comment: - Performed By: #### L 500.2500 #### [facility] [address] [place], [address] CO2 [Moles/Vol] 25.7 mmol/L Normal 21.0-32.0 [facility] Comment on above: Order Comment: - Performed By: #### L 500.2500 #### [facility] [address] [place], [address] Creatinine [Mass/Vol] 1.31 mg/dL High 0.70-1.20 [facility] Comment on above: Order Comment: - Performed By: #### L 500.2500 #### [facility] [address] [place], [address] GAP 10 Normal 5-15 [facility] Comment on above: Order Comment: - Performed By: #### L 500.2500 #### [facility] [address] [place], [address] GFR/1.73 sq M.predicted among non-blacks MDRD (S/P/Bld) [Vol rate/Area] 41 mL/min/{1.73_m2} Low >60 [facility] Comment on above: Order Comment: Result Comment: mL/m in/1.73m2 CKD-EPI Creatinine Equation (2020) Performed By: #### L 500.2500 #### [facility] [address] [place], [address] Glucose [Mass/Vol] 134 mg/dL High 70-99 [facility] Comment on above: Order Comment: Performed By: #### L 500.2500 #### [facility] [address] [place], [address] Potassium [Moles/Vol] 3.5 mmol/L Normal 3.3-5.1 [facility] Comment on above: Order Comment: Performed By: #### L 500.2500 #### [facility] [address] [place], [address] Sodium [Moles/Vol] 140 mmol/L Normal 133-145 [facility] Comment on above: Order Comment: Performed By: #### L 500.2500 #### [facility] [address] [place], [address] Urea nitrogen [Mass/Vol] 24 mg/dL High 4-19 [facility] Comment on above: Order Comment: Performed By: #### L 500.2500 #### [facility] [address] [place], [address] CBC-Complete Blood Cnt No Di ffon 01-10-2025 Erythrocyte distribution width (RBC) [Ratio] 13.4 % Normal 11.6-14.6 [facility] Comment on above: Order Comment: Performed By: #### L [id number], [id number] #### [facility] [address] [place], [address] Hematocrit (Bld) [Volume fraction] 34.1 % Low 37-47 [facility] Comment on above: Order Comment: 211.1 Performed By: #### L [id number], [id number] #### [facility] [address] [place], [id number] Hemoglobin (Bld) [Mass/Vol] 11.3 g/dL Low 12.0-15.0 [facility] Comment on above: Order Comment: 211.1 Performed By: #### L [id number], [id number] #### [facility] [address] [place], [address] MCH (RBC) [Entitic mass] 32.8 pg High 27.0-32.0 [facility] Comment on above: Order Comment: 211.1 Performed By: #### L [id number], [id number] #### [facility] [address] [place], [address] MCHC (RBC) [Mass/Vol] 33.1 g/dL Normal 32-36 [facility] Comment on above: Order Comment: 211.1 Performed By: #### L [id number], [id number] #### [facility] [address] [place], [address] MCV (RBC) [Entitic vol] 98.8 fL Normal 81-99 [facility] Comment on above: Order Comment: 211.1 Performed By: #### L 500.4050, [id number] #### [facility] [address] [place], [address] Platelet mean volume (Bld) [Entitic vol] 11.6 fL Normal 6.2-12.0 [facility] Comment on above: Order Comment: 211.1 Performed By: #### L 500.4050, [id number] #### [facility] [address] [place], [address] Platelets (Bld) [#/Vol] 125 10*3/uL Low 150-450 [facility] Comment on above: Order Comment: 211.1 Performed By: #### L 500.4050, [id number] #### [facility] [address] [place], [address] RBC (Bld) [#/Vol] 3.45 10*6/uL Low 4.2-5.4 [facility] Comment on above: Order Comment: 211.1 Performed By: #### L 500.4050, [id number] #### [facility] [address] [place], [address] RDW SD 47.8 fl High 35.1-43.9 [facility] Comment on above: Order Comment: 211.1 Performed By: #### L [id number], [id number] #### [facility] [address] [place], [address] WBC (Bld) [#/Vol] 7.4 10*3/uL Normal 4.4-11.0 [facility] Comment on above: Order Comment: 211.1 Performed By: #### L 500.4050, [id number] #### [facility] [address] [place], [address] Hemoglobin A1con 12-25-2024 HbA1c (Bld) [Mass fraction] 7.0 % High <=5.6 [facility] Comment on above: Order Comment: 211.1 Result Comment: Norm al < 5.7 % Prediabetic 5.7 - 6.4 % Diabetic >or= 6.5 % Please note range changes. Performed By: #### L 500.4050, [id number] #### [facility] [address] [place], [address] CBC-Complete Blood Cnt No Di ffon 11-26-2024 Erythrocyte distribution width (RBC) [Ratio] 13.9 % Normal 11.6-14.6 [facility] Comment on above: Order Comment: 211.1 Performed By: #### L 500.4050, [id number] #### [facility] [address] [place], [address] Hematocrit (Bld) [Volume fraction] 32.2 % Low 37-47 [facility] Comment on above: Order Comment: 211.1 Performed By: #### L 500.4050, [id number] #### [facility] [address] [place], [address] Hemoglobin (Bld) [Mass/Vol] 10.5 g/dL Low 12.0-15.0 [facility] Comment on above: Order Comment: 211.1 Performed By: #### L 500.4050, [id number] #### [facility] [address] [place], [address] MCH (RBC) [Entitic mass] 32.0 pg Normal 27.0-32.0 [facility] Comment on above: Order Comment: 211.1 Performed By: #### L [id number], [id number] #### [facility] [address] [place], [address] MCHC (RBC) [Mass/Vol] 32.6 g/dL Normal 32-36 [facility] Comment on above: Order Comment: 211.1 Performed By: #### L [id number], [id number] #### [facility] [address] [place], [address] MCV (RBC) [Entitic vol] 98.2 fL Normal 81-99 [facility] Comment on above: Order Comment: 211.1 Performed By: #### L 500.4050, [id number] #### [facility] [address] [place], [address] Platelet mean volume (Bld) [Entitic vol] 10.6 fL Normal 6.2-12.0 [facility] Comment on above: Order Comment: 211.1 Performed By: #### L 500.4050, [id number] #### [facility] [address] [place], [id number] Platelets (Bld) [#/Vol] 142 10*3/uL Low 150-450 [facility] Comment on above: Order Comment: 211.1 Performed By: #### L 500.4050, [id number] #### [facility] [address] [place], [id number] RBC (Bld) [#/Vol] 3.28 10*6/uL Low 4.2-5.4 [facility] Comment on above: Order Comment: 211.1 Performed By: #### L 500.4050, [id number] #### [facility] [address] [place], [id number] RDW SD 49.7 fl High 35.1-43.9 [facility] Comment on above: Order Comment: 211.1 Performed By: #### L 500.4050, [id number] #### [facility] [address] [place], [id number] WBC (Bld) [#/Vol] 9.6 10*3/uL Normal 4.4-11.0 [facility] Comment on above: Order Comment: 211.1 Performed By: #### L 500.4050, [id number] #### [facility] [address] [place], [id number] Erythrocyte distribution wid th (RBC) [Ratio]Ordered By: Julieth Olmedo on 11-26-2024 Erythrocyte distribution width (RBC) [Entitic vol] 49.7 fL High 35.1-43.9 [facility] Erythrocyte distribution wid th ratioOrdered By: Julieth Olmedo on 11-26-2024 Erythrocyte distribution width (RBC) [Ratio] 13.9 % 11.6-14.6 [facility] Hematocrit Auto (Bld) [Volum e fraction]Ordered By: Julieth Olmedo on 11-26-2024 Hematocrit (Bld) [Volume fraction] 32.2 % Low 37-47 [facility] Hemoglobin measurementOrdere d By: Julieth Olmedo on 11-26-2024 Hemoglobin (Bld) [Mass/Vol] 10.5 g/dL Low 12.0-15.0 [facility] Influenza virus A and B and SARS-CoV-2 (COVID-19) and Respiratory syncytial virus RNAOrdered By: Julieth Olmedo on 11-26-2024 SARS-CoV-2 (COVID-19) RNA HUGO+probe Ql (Unsp spec) [facility] M100.678on 11-26-2024 M100.678 Pending SARS-CoV-2 (COVID 19) Negative INFLUENZA A Negative INFLUENZA B Negative RSV PCR Negative Normal [facility] Comment on above: Performed By: #### L 500.4050, [id number] #### [facility] [address] [place] [address], [address] MCV (mean corpuscular volume ) determinationOrdered By: Julieth Olmedo on 11-26-2024 MCV (RBC) [Entitic vol] 98.2 fL 81-99 [facility] Mean corpuscular hemoglobin (MCH) determinationOrdered By: Julieth Olmedo on 11-26-2024 MCH (RBC) [Entitic mass] 32.0 pg 27.0-32.0 [facility] Mean corpuscular hemoglobin concentration (MCHC) determinationOrdered By: Julieth Olmedo on 11-26-2024 MCHC (RBC) [Mass/Vol] 32.6 g/dL 32-36 [facility] Mean platelet volume determi nationOrdered By: Julieth Olmedo on 11-26-2024 Platelet mean volume (Bld) [Entitic vol] 10.6 fL 6.2-12.0 [facility] Platelet countOrdered By: Chen on 11-26-2024 Platelets (Bld) [#/Vol] 142 10*3/uL Low 150-450 [facility] RBC Auto (Bld) [#/Vol]Ordere d By: Julieth Olmedo on 11-26-2024 RBC (Bld) [#/Vol] 3.28 10*6/uL Low 4.2-5.4 [facility] White blood cell (WBC) count Ordered By: Julieth Olmedo on 11-26-2024 WBC (Bld) [#/Vol] 9.6 10*3/uL 4.4-11.0 [facility] Ammoniaon 11-12-2024 Ammonia (P) [Moles/Vol] 38.0 umol/L Normal [facility] Comment on above: Order Comment: 211.1 Performed By: #### L 500.4050, L503.5510 #### [facility] [address] [place], [address] Venous blood ammonia measure mentOrdered By: Julieth Olmedo on 11-12-2024 Ammonia (P) [Moles/Vol] 38.0 umol/L [facility] Anion gap in Serum or Plasma Ordered By: Julieth Olmedo on 11-02-2024 Anion gap [Moles/Vol] 11 mmol/L 12-20 [facility] BUN/creatinine ratioOrdered By: Julieth Olmedo on 11-02-2024 Urea nitrogen/Creatinine [Mass ratio] 14.1 mg/mg 05-27 [facility] Basic Metabolic Profile (BMP )on 11-02-2024 BUN/CRE 14.1 RATIO Normal 05-27 [facility] Comment on above: Order Comment: 211.1 Performed By: #### L 500.4050, L503.5510 #### [facility] [address] [place], [address] Calcium [Mass/Vol] 9.4 mg/dL Normal 7.6-11.0 [facility] Comment on above: Order Comment: 211.1 Performed By: #### L 500.4050, L503.5510 #### [facility] [address] [place], [address] Chloride [Moles/Vol] 103 mmol/L Normal 98-108 [facility] Comment on above: Order Comment: 211.1 Performed By: #### L 500.4050, L503.5510 #### [facility] [address] [place], [address] CO2 [Moles/Vol] 25.6 mmol/L Normal 21.0-32.0 [facility] Comment on above: Order Comment: 211.1 Performed By: #### L 500.4050, L503.5510 #### [facility] [address] [place], [address] Creatinine [Mass/Vol] 1.52 mg/dL High 0.70-1.20 [facility] Comment on above: Order Comment: 211.1 Performed By: #### L 500.4050, L503.5510 #### [facility] [address] [place], [address] GAP 11 Normal 5-15 [facility] Comment on above: Order Comment: 211.1 Performed By: #### L 500.4050, L503.5510 #### [facility] [address] [place], [address] GFR/1.73 sq M.predicted among non-blacks MDRD (S/P/Bld) [Vol rate/Area] 35 mL/min/{1.73_m2} Low >60 [facility] Comment on above: Order Comment: 211.1 Result Comment: mL/m in/1.73m2 CKD-EPI Creatinine Equation (2020) Performed By: #### L 500.4050, L503.5510 #### [facility] [address] [place], [address] Glucose [Mass/Vol] 136 mg/dL High 70-99 [facility] Comment on above: Order Comment: 211.1 Performed By: #### L 500.4050, L503.5510 #### [facility] [address] [place], [address] Potassium [Moles/Vol] 3.8 mmol/L Normal 3.3-5.1 [facility] Comment on above: Order Comment: 211.1 Performed By: #### L 500.4050, L503.5510 #### [facility] [address] [place], [address] Sodium [Moles/Vol] 139 mmol/L Normal 133-145 [facility] Comment on above: Order Comment: 211.1 Performed By: #### L 500.4050, L503.5510 #### [facility] [address] [place], [address] Urea nitrogen [Mass/Vol] 22 mg/dL High 4-19 [facility] Comment on above: Order Comment: 211.1 Performed By: #### L 500.4050, L503.5510 #### [facility] [address] [place], [address] Carbon dioxide, total [Moles /volume] in Central venous bloodOrdered By: Julieth Olmedo on 11-02-2024 CO2 [Moles/Vol] 25.6 mmol/L 21.0-32.0 [facility] Chloride assayOrdered By: Chen on 11-02-2024 Chloride [Moles/Vol] 103 mmol/L 98-108 [facility] GFR/1.73 sq M.predicted zakia g non-blacks MDRD (S/P/Bld) [Vol rate/Area]Ordered By: Julieth Olmedo on 11-02-2024 Estimated GFR (MDRD) Non-Af Amer 35 Low >60 [facility] Comment on above: mL/min/1.73m2 CKD-EP I Creatinine Equation (2020) Potassium (Unsp spec) [Mass/ Vol]Ordered By: Julieth Olmedo on 11-02-2024 Potassium [Moles/Vol] 3.8 mmol/L 3.3-5.1 [facility] Serum creatinine measurement (mass/volume)Ordered By: Julieth Olmedo on 11-02-2024 Creatinine [Mass/Vol] 1.52 mg/dL High 0.70-1.20 [facility] Serum glucose measurement (m ass/volume)Ordered By: Julieth Olmedo on 11-02-2024 Glucose [Mass/Vol] 136 mg/dL High 70-99 [facility] Serum or plasma calcium kirstin urement (mass/volume)Ordered By: Julieth Olmedo on 11-02-2024 Calcium [Mass/Vol] 9.4 mg/dL 7.6-11.0 [facility] Serum or plasma urea nitroge n measurement (mass/volume)Ordered By: Julieth Olmedo on 11-02-2024 Urea nitrogen [Mass/Vol] 22 mg/dL High 4-19 [facility] Sodium levelOrdered By: Julieth Olmedo on 11-02-2024 Sodium [Moles/Vol] 139 mmol/L 133-145 [facility] Anion gap in Serum or Plasma Ordered By: Julieth Olmedo on 10-26-2024 Anion gap [Moles/Vol] 10 mmol/L 5-15 [facility] BUN/creatinine ratioOrdered By: Julieth Olmedo on 10-26-2024 Urea nitrogen/Creatinine [Mass ratio] 17.4 mg/mg 10- [facility] Basic Metabolic Profile (BMP )on 10-26-2024 BUN/CRE 17.4 RATIO Normal - [facility] Comment on above: Order Comment: Performed By: #### L 500.2500 #### [facility] [address] [place], [place], [address] Calcium [Mass/Vol] 9.1 mg/dL Normal 7.6-11.0 [facility] Comment on above: Order Comment: Performed By: #### L 500.2500 #### [facility] [address] [place], [address] Chloride [Moles/Vol] 103 mmol/L Normal 98-108 [facility] Comment on above: Order Comment: Performed By: #### L 500.2500 #### [facility] [address] [place], [address] CO2 [Moles/Vol] 26.5 mmol/L Normal 21.0-32.0 [facility] Comment on above: Order Comment: Performed By: #### L 500.2500 #### [facility] [address] [place], [address] Creatinine [Mass/Vol] 1.39 mg/dL High 0.70-1.20 [facility] Comment on above: Order Comment: Performed By: #### L 500.2500 #### [facility] [address] [place], [address] GAP 10 Normal 5-15 [facility] Comment on above: Order Comment: Performed By: #### L 500.2500 #### [facility] [address] [place], [address] GFR/1.73 sq M.predicted among non-blacks MDRD (S/P/Bld) [Vol rate/Area] 39 mL/min/{1.73_m2} Low >60 [facility] Comment on above: Order Comment: Result Comment: mL/m in/1.73m2 CKD-EPI Creatinine Equation (2020) Performed By: #### L 500.2500 #### [facility] [address] [place], [address] Glucose [Mass/Vol] 152 mg/dL High 70-99 [facility] Comment on above: Order Comment: Performed By: #### L 500.2500 #### [facility] [address] [place], [address] Potassium [Moles/Vol] 3.5 mmol/L Normal 3.3-5.1 [facility] Comment on above: Order Comment: Performed By: #### L 500.2500 #### [facility] [address] [place], [place], [address] Sodium [Moles/Vol] 139 mmol/L Normal 133-145 [facility] Comment on above: Order Comment: Performed By: #### L 500.2500 #### [facility] [address] [place], [place], [address] Urea nitrogen [Mass/Vol] 24 mg/dL High 4-19 [facility] Comment on above: Order Comment: Performed By: #### L 500.2500 #### [facility] [address] [place], [place], [address] Carbon dioxide, total [Moles /volume] in Central venous bloodOrdered By: Julieth Olmedo on 10-26-2024 CO2 [Moles/Vol] 26.5 mmol/L 21.0-32.0 [facility] Chloride assayOrdered By: Chen on 10-26-2024 Chloride [Moles/Vol] 103 mmol/L 98-108 [facility] GFR/1.73 sq M.predicted zakia g non-blacks MDRD (S/P/Bld) [Vol rate/Area]Ordered By: Julieth Olmedo on 10-26-2024 Estimated GFR (MDRD) Non-Af Amer 39 Low >60 [facility] Comment on above: mL/min/1.73m2 CKD-EP I Creatinine Equation (2020) Potassium (Unsp spec) [Mass/ Vol]Ordered By: Julieth Olmedo on 10-26-2024 Potassium [Moles/Vol] 3.5 mmol/L 3.3-5.1 [facility] Serum creatinine measurement (mass/volume)Ordered By: Julieth Olmedo on 10-26-2024 Creatinine [Mass/Vol] 1.39 mg/dL High 0.70-1.20 [facility] Serum glucose measurement (m ass/volume)Ordered By: Julieth Olmedo on 10-26-2024 Glucose [Mass/Vol] 152 mg/dL High 70-99 [facility] Serum or plasma calcium kirstin urement (mass/volume)Ordered By: Julieth Olmedo on 10-26-2024 Calcium [Mass/Vol] 9.1 mg/dL 7.6-11.0 [facility] Serum or plasma urea nitroge n measurement (mass/volume)Ordered By: Julieth Olmedo on 10-26-2024 Urea nitrogen [Mass/Vol] 24 mg/dL High - [facility] Sodium levelOrdered By: Julieth Olmedo on 10-26-2024 Sodium [Moles/Vol] 139 mmol/L 133-145 [facility] Ammoniaon 10-15-2024 Ammonia (P) [Moles/Vol] 46.6 umol/L Normal [facility] Comment on above: Order Comment: 211.1 Performed By: #### L 500.4050, L503.5510 #### [facility] [address] [place], [place], [address] Venous blood ammonia measure mentOrdered By: Julieth Olmedo on 10-15-2024 Ammonia (P) [Moles/Vol] 46.6 umol/L [facility] Ammoniaon 10-05-2024 Ammonia (P) [Moles/Vol] 62.1 umol/L High [address] [place] [address] Comment on above: Order Comment: 211.1 Performed By: #### L 500.4050, L503.5510 #### [facility] [address] [place], [place], [address] Venous blood ammonia measure mentOrdered By: Julieth Olmedo on 10-05-2024 Ammonia (P) [Moles/Vol] 62.1 umol/L [facility] [address] [place] [address] on 10-02-2024 36 PC to [facility], I spoke with Diego MARRERO Reviewed verbal order. Will send to [facility] pharmacy as well. She verbalized understanding. [facility] 36on 10-01-2024 36 Called, Diego MARRERO was alittle concerned BP past week, she has not been on RX since PM inserted 09/23 -168/70 09/24 -144/68 09/25-158/64 09/26-143/66 2-20-136/68 09/29-148-72 2-146/70 HR 70-80 no HF SX , wt stable,no complaints, will inform Dianelys Byrd [facility] 36 Rajwinder MARRERO from [facility] requesting return call to clarify medications and BP [phone]. May ask for nurse Normal [facility] Albumin to globulin ratioOrd ered By: Julieth Olmedo on 09-25-2024 Albumin/Globulin [Mass ratio] 0.6 {ratio} Low 0.9-2.4 [facility] Ammoniaon 09-25-2024 Ammonia (P) [Moles/Vol] 48.0 umol/L High 11-32 [facility] Comment on above: Order Comment: . Performed By: #### L 500.4050, L503.5510 #### [facility] [address] [facility] [address] Bilirubin, totalOrdered By: Julieth Olmedo on 09-25-2024 Bilirubin [Mass/Vol] 0.80 mg/dL 0.20-1.00 [facility] Comment on above: For patients on eltr ombopag therapy, use of Dimension [place] TBIL is not recommended. Blood urea nitrogen (BUN)/cr eatinine ratioOrdered By: Julieth Olmedo on 09-25-2024 Urea nitrogen/Creatinine [Mass ratio] 14.6 mg/mg 10-20 [facility] CBC-Complete Blood Cnt No Di ffon 09-25-2024 Erythrocyte distribution width (RBC) [Ratio] 14.3 % Normal 11.6-14.6 [facility] Comment on above: Order Comment: 211.1 Performed By: #### L 500.4050, L503.5510 #### [facility] [address] [facility] [address] Hematocrit (Bld) [Volume fraction] 32.7 % Low 37-47 [facility] Comment on above: Order Comment: 211.1 Performed By: #### L 500.4050, L503.5510 #### [facility] [address] [place], [address] Hemoglobin (Bld) [Mass/Vol] 10.5 g/dL Low 12.0-15.0 [facility] Comment on above: Order Comment: 211.1 Performed By: #### L 500.4050, L503.5510 #### [facility] [address] [place], [address] MCH (RBC) [Entitic mass] 31.5 pg Normal 27.0-32.0 [facility] Comment on above: Order Comment: 211.1 Performed By: #### L 500.4050, L503.5510 #### [facility] [address] [place], [address] MCHC (RBC) [Mass/Vol] 32.1 g/dL Normal 32-36 [facility] Comment on above: Order Comment: 211.1 Performed By: #### L 500.4050, L503.5510 #### [facility] [address] [place], [address] MCV (RBC) [Entitic vol] 98.2 fL Normal 81-99 [facility] Comment on above: Order Comment: 211.1 Performed By: #### L 500.4050, L503.5510 #### [facility] [address] [place], [address] Platelet mean volume (Bld) [Entitic vol] 11.1 fL Normal 6.2-12.0 [facility] Comment on above: Order Comment: 211.1 Performed By: #### L 500.4050, L503.5510 #### [facility] [address] [place], [address] Platelets (Bld) [#/Vol] 114 10*3/uL Low 150-450 [facility] Comment on above: Order Comment: 211.1 Performed By: #### L 500.4050, L503.5510 #### [facility] [address] [place], [address] RBC (Bld) [#/Vol] 3.33 10*6/uL Low 4.2-5.4 [facility] Comment on above: Order Comment: 211.1 Performed By: #### L 500.4050, L503.5510 #### [facility] [address] [place], [address] RDW SD 51.7 fl High 35.1-43.9 [facility] Comment on above: Order Comment: 211.1 Performed By: #### L 500.4050, L503.5510 #### [facility] [address] [place], [address] WBC (Bld) [#/Vol] 7.0 10*3/uL Normal 4.4-11.0 [facility] Comment on above: Order Comment: 211.1 Performed By: #### L 500.4050, L503.5510 #### [facility] [address] [place], [address] Carbon dioxide measurementOr dered By: Julieth Olmedo on 09-25-2024 CO2 [Moles/Vol] 26.0 mmol/L 21.0-32.0 [facility] Chloride measurementOrdered By: Julieth Olmedo on 09-25-2024 Chloride [Moles/Vol] 107 mmol/L 98-107 [facility] Comprehensive Metabolic Prof ilon 09-25-2024 Albumin [Mass/Vol] 2.5 g/dL Low 3.2-5.0 [facility] Comment on above: Order Comment: 211.1 Performed By: #### L 500.4050, L503.5510 #### [facility] [address] [place], [address] Albumin/Globulin [Mass ratio] 0.6 {ratio} Low 0.9-2.4 [facility] Comment on above: Order Comment: 211.1 Performed By: #### L 500.4050, L503.5510 #### [facility] [address] [place], [address] ALK P 152 U/L High 45-117 [facility] Comment on above: Order Comment: 211.1 Performed By: #### L 500.4050, L503.5510 #### [facility] [address] [place], [address] ALT [Catalytic activity/Vol] 27 U/L Normal 13-56 [facility] Comment on above: Order Comment: 211.1 Performed By: #### L 500.4050, L503.5510 #### [facility] [address] [place], [address] AST [Catalytic activity/Vol] 44 U/L High 15-37 [facility] Comment on above: Order Comment: 211.1 Performed By: #### L 500.4050, L503.5510 #### [facility] [address] [place], [address] Bilirubin [Mass/Vol] 0.80 mg/dL Normal 0.20-1.00 [facility] Comment on above: Order Comment: 211.1 Result Comment: For patients on eltrombopag therapy, use of Dimension [place] TBIL is not recommended. Performed By: #### L 500.4050, L503.5510 #### [facility] [address] [place], [address] BUN/CRE 14.6 RATIO Normal 10-20 [facility] Comment on above: Order Comment: 211.1 Performed By: #### L 500.4050, L503.5510 #### [facility] [address] [place], [address] CA,Total 9.0 mg/dL Normal 8.5-10.1 [facility] Comment on above: Order Comment: 211.1 Performed By: #### L 500.4050, L503.5510 #### [facility] [address] [place], [address] Chloride [Moles/Vol] 107 mmol/L Normal 98-107 [facility] Comment on above: Order Comment: 211.1 Performed By: #### L 500.4050, L503.5510 #### [facility] [address] [place], [address] CO2 [Moles/Vol] 26.0 mmol/L Normal 21.0-32.0 [facility] Comment on above: Order Comment: 211.1 Performed By: #### L 500.4050, L503.5510 #### [facility] [address] [place], [address] Creatinine [Mass/Vol] 1.23 mg/dL High 0.55-1.02 [facility] Comment on above: Order Comment: 211.1 Result Comment: The validity of the calculated GFR GFRAA in patients over 70 years has not been determined. Clinical correlation is essential. Performed By: #### L 500.4050, L503.5510 #### [facility] [address] [place], [address] EST GFR - AA 54 mL/min Low >60 [facility] Comment on above: Order Comment: 211.1 Result Comment: Afri can [place] GFR Calc Performed By: #### L 500.4050, L503.5510 #### [facility] [address] [place], [address] GAP 8 Normal 5-15 [facility] Comment on above: Order Comment: 211.1 Performed By: #### L 500.4050, L503.5510 #### [facility] [address] [place], [address] GFR/1.73 sq M.predicted among non-blacks MDRD (S/P/Bld) [Vol rate/Area] 45 mL/min/{1.73_m2} Low >60 [facility] Comment on above: Order Comment: 211.1 Result Comment: Non- GFR Calc Performed By: #### L 500.4050, L503.5510 #### [facility] [address] [place], [address] Globulin (S) [Mass/Vol] 4.0 g/dL Normal 2.2-4.2 [facility] Comment on above: Order Comment: . Performed By: #### L 500.4050, L503.5510 #### [facility] [address] [place], [address] Glucose [Mass/Vol] 127 mg/dL High 74-106 [facility] Comment on above: Order Comment: . Result Comment: Fast ing Glucose result greater than or equal to 126 mg/dL suggests DIABETES MELLITUS per A.D.A. criteria. Performed By: #### L 500.4050, L503.5510 #### [facility] [address] [place], [address] Potassium [Moles/Vol] 3.5 mmol/L Normal 3.5-5.1 [facility] Comment on above: Order Comment: . Performed By: #### L 500.4050, L503.5510 #### [facility] [address] [place], [address] Sodium [Moles/Vol] 141 mmol/L Normal 136-145 [facility] Comment on above: Order Comment: . Performed By: #### L 500.4050, L503.5510 #### [facility] [address] [place], [address] T PROT 6.5 g/dL Normal 6.4-8.2 [facility] Comment on above: Order Comment: . Performed By: #### L 500.4050, L503.5510 #### [facility] [address] [place], [address] Urea nitrogen [Mass/Vol] 18 mg/dL Normal 7-18 [facility] Comment on above: Order Comment: 211.1 Performed By: #### L 500.4050, L503.5510 #### [facility] [address] [place], [place], [address] Erythrocyte distribution wid th (RBC) [Ratio]Ordered By: Julieth Olmedo on 09-25-2024 Erythrocyte distribution width (RBC) [Entitic vol] 51.7 fL High 35.1-43.9 [facility] Erythrocyte distribution wid th ratioOrdered By: Julieth Olmedo on 09-25-2024 Erythrocyte distribution width (RBC) [Ratio] 14.3 % 11.6-14.6 [facility] Estimated glomerular filtrat ion rate (GFR) AmericanOrdered By: Julieth Olmedo on 09-25-2024 Estimated GFR (MDRD) Amer 54 mL/min Low >60 [facility] Comment on above: GFR Calc Glomerular filtration rate ( GFR) estimationOrdered By: Julieth Olmedo on 09-25-2024 Estimated GFR (MDRD) Non-Af Amer 45 mL/min Low >60 [facility] Comment on above: Non- GFR Calc Glucose measurementOrdered B y: Julieth Olmedo on 09-25-2024 Glucose [Mass/Vol] 127 mg/dL High 74-106 [facility] Comment on above: Fasting Glucose resu lt greater than or equal to 126 mg/dL suggests DIABETES MELLITUS per A.D.A. criteria. Hematocrit Auto (Bld) [Volum e fraction]Ordered By: Julieth Olmedo on 09-25-2024 Hematocrit (Bld) [Volume fraction] 32.7 % Low 37-47 [facility] Hemoglobin measurementOrdere d By: Julieth Olmedo on 09-25-2024 Hemoglobin (Bld) [Mass/Vol] 10.5 g/dL Low 12.0-15.0 [facility] - Chemistry and C hemistry - challengeOrdered By: Julieth Olmedo on 09-25-2024 AST [Catalytic activity/Vol] 44 U/L High 15-37 [facility] MCV (mean corpuscular volume ) determinationOrdered By: Julieth Olmedo on 09-25-2024 MCV (RBC) [Entitic vol] 98.2 fL 81-99 [facility] Mean corpuscular hemoglobin (MCH) determinationOrdered By: Julieth Olmedo on 09-25-2024 MCH (RBC) [Entitic mass] 31.5 pg 27.0-32.0 [facility] Mean corpuscular hemoglobin concentration (MCHC) determinationOrdered By: Julieth Olmedo on 09-25-2024 MCHC (RBC) [Mass/Vol] 32.1 g/dL 32-36 [facility] Mean platelet volume determi nationOrdered By: Julieth Olmedo on 09-25-2024 Platelet mean volume (Bld) [Entitic vol] 11.1 fL 6.2-12.0 [facility] Platelet countOrdered By: Chen on 09-25-2024 Platelets (Bld) [#/Vol] 114 10*3/uL Low 150-450 [facility] Potassium measurementOrdered By: Julieth Olmedo on 09-25-2024 Potassium [Moles/Vol] 3.5 mmol/L 3.5-5.1 [facility] RBC Auto (Bld) [#/Vol]Ordere d By: Julieth Olmedo on 09-25-2024 RBC (Bld) [#/Vol] 3.33 10*6/uL Low 4.2-5.4 [facility] Serum anion gap measurementO rdered By: Julieth Olmedo on 09-25-2024 Anion gap [Moles/Vol] 8 mmol/L 5-15 [facility] Serum globulin measurementOr dered By: Julieth Olmedo on 09-25-2024 Globulin (S) [Mass/Vol] 4.0 g/dL 2.2-4.2 [facility] Serum or plasma alanine taylor otransferase (ALT) measurementOrdered By: Julieth Olmedo on 09-25-2024 ALT [Catalytic activity/Vol] 27 U/L 13-56 [facility] Serum or plasma albumin kirstin urement (mass/volume)Ordered By: Julieth Olmedo on 09-25-2024 Albumin [Mass/Vol] 2.5 g/dL Low 3.2-5.0 [facility] Serum or plasma alkaline loan sphatase measurementOrdered By: Julieth Olmedo on 09-25-2024 ALP [Catalytic activity/Vol] 152 U/L High 45-117 [facility] Serum or plasma calcium kirstin urement (mass/volume)Ordered By: Julieth Olmedo on 09-25-2024 Calcium [Mass/Vol] 9.0 mg/dL 8.5-10.1 [facility] Serum or plasma creatinine m easurement (mass/volume)Ordered By: Julieth Olmedo on 09-25-2024 Creatinine [Mass/Vol] 1.23 mg/dL High 0.55-1.02 [facility] Comment on above: The validity of the calculated GFR & GFRAA in patients over 70 years has not been determined. Clinical correlation is essential. Serum or plasma urea nitroge n measurement (mass/volume)Ordered By: Julieth Olmedo on 09-25-2024 Urea nitrogen [Mass/Vol] 18 mg/dL 7-18 [facility] Sodium levelOrdered By: Julieth Olmedo on 09-25-2024 Sodium [Moles/Vol] 141 mmol/L 136-145 [facility] Total proteinOrdered By: Karla Olmedo on 09-25-2024 Protein [Mass/Vol] 6.5 g/dL 6.4-8.2 [facility] Venous blood ammonia measure mentOrdered By: Julieth Olmedo on 09-25-2024 Ammonia (P) [Moles/Vol] 48.0 umol/L High 11-32 [facility] White blood cell (WBC) count Ordered By: Julieth Olmedo on 09-25-2024 WBC (Bld) [#/Vol] 7.0 10*3/uL 4.4-11.0 [facility] Albumin to globulin ratioOrd ered By: Julieth Olmedo on 08-07-2024 Albumin/Globulin [Mass ratio] 0.8 {ratio} Low 0.9-2.4 [facility] Comment on above: Order Comment: 211.1 Performed By: #### L 500.4050, L503.5510 #### [facility] [address] [place], [address] Bilirubin, totalOrdered By: Julieth Olmedo on 08-07-2024 Bilirubin [Mass/Vol] 1.00 mg/dL Normal 0.20-1.00 [facility] Comment on above: For patients on eltr ombopag therapy, use of Dimension [place] TBIL is not recommended. Order Comment: 211.1 Result Comment: For patients on eltrombopag therapy, use of Dimension [place] TBIL is not recommended. Performed By: #### L 500.4050, L503.5510 #### [facility] [address] [place], [address] Blood urea nitrogen (BUN)/cr eatinine ratioOrdered By: Julieth Olmedo on 08-07-2024 Urea nitrogen/Creatinine [Mass ratio] 10.9 mg/mg 10-20 [facility] Carbon dioxide measurementOr dered By: Julieth Olmedo on 08-07-2024 CO2 [Moles/Vol] 27.0 mmol/L Normal 21.0-32.0 [facility] Comment on above: Order Comment: 211.1 Performed By: #### L 500.4050, L503.5510 #### [facility] [address] [place], [address] Chloride measurementOrdered By: Julieth Olmedo on 08-07-2024 Chloride [Moles/Vol] 106 mmol/L Normal 98-107 [facility] Comment on above: Order Comment: 211.1 Performed By: #### L 500.4050, L503.5510 #### [facility] [address] [place], [address] Comprehensive Metabolic Prof ilon 08-07-2024 ALK P 174 U/L High 45-117 [facility] Comment on above: Order Comment: 211.1 Performed By: #### L 500.4050, L503.5510 #### [facility] [address] [place], [address] BUN/CRE 10.9 RATIO Normal 10-20 [facility] Comment on above: Order Comment: 211.1 Performed By: #### L 500.4050, L503.5510 #### [facility] [address] [place], [address] CA,Total 9.3 mg/dL Normal 8.5-10.1 [facility] Comment on above: Order Comment: 211.1 Performed By: #### L 500.4050, L503.5510 #### [facility] [address] [place], [address] EST GFR - AA 52 mL/min Low >60 [facility] Comment on above: Order Comment: 211.1 Result Comment: Afri can Mosotho GFR Calc Performed By: #### L 500.4050, L503.5510 #### [facility] [address] [place], [address] GAP 6 Normal 5-15 [facility] Comment on above: Order Comment: 211.1 Performed By: #### L 500.4050, L503.5510 #### [facility] [address] [place], [address] GFR/1.73 sq M.predicted among non-blacks MDRD (S/P/Bld) [Vol rate/Area] 43 mL/min/{1.73_m2} Low >60 [facility] Comment on above: Order Comment: 211.1 Result Comment: Non- GFR Calc Performed By: #### L 500.4050, L503.5510 #### [facility] [address] [place], [address] T PROT 6.4 g/dL Normal 6.4-8.2 [facility] Comment on above: Order Comment: 211.1 Performed By: #### L 500.4050, L503.5510 #### [facility] [address] [place], [address] Comprehensive Metabolic Prof ilOrdered By: Julieth Olmedo on 08-07-2024 AST [Catalytic activity/Vol] 47 U/L High 15-37 [facility] Comment on above: Order Comment: 211.1 Performed By: #### L 500.4050, L503.5510 #### [facility] [address] [place], [address] Estimated glomerular filtrat ion rate (GFR) AmericanOrdered By: Julieth Olmedo on 08-07-2024 Estimated GFR (MDRD) Amer 52 mL/min Low >60 [facility] Comment on above: GFR Calc Glomerular filtration rate ( GFR) estimationOrdered By: Julieth Olmedo on 08-07-2024 Estimated GFR (MDRD) Non-Af Amer 43 mL/min Low >60 [facility] Comment on above: Non- GFR Calc Glucose measurementOrdered B y: Julieth Olmedo on 08-07-2024 Glucose [Mass/Vol] 127 mg/dL High 74-106 [facility] Comment on above: Fasting Glucose resu lt greater than or equal to 126 mg/dL suggests DIABETES MELLITUS per A.D.A. criteria. Order Comment: 211.1 Result Comment: Fast ing Glucose result greater than or equal to 126 mg/dL suggests DIABETES MELLITUS per A.D.A. criteria. Performed By: #### L 500.4050, L503.5510 #### [facility] [address] [place], [address] Potassium measurementOrdered By: Julieth Olmedo on 08-07-2024 Potassium [Moles/Vol] 3.8 mmol/L Normal 3.5-5.1 [facility] Comment on above: Order Comment: 211.1 Performed By: #### L 500.4050, L503.5510 #### [facility] [address] [place], [address] Serum anion gap measurementO rdered By: Julieth Olmedo on 08-07-2024 Anion gap [Moles/Vol] 6 mmol/L 5-15 [facility] Serum globulin measurementOr dered By: Julieth Olmedo on 08-07-2024 Globulin (S) [Mass/Vol] 3.6 g/dL Normal 2.2-4.2 [facility] Comment on above: Order Comment: 211.1 Performed By: #### L 500.4050, L503.5510 #### [facility] [address] [place], [address] Serum or plasma alanine taylor otransferase (ALT) measurementOrdered By: Julieth Olmedo on 08-07-2024 ALT [Catalytic activity/Vol] 27 U/L Normal 13-56 [facility] Comment on above: Order Comment: 211.1 Performed By: #### L 500.4050, L503.5510 #### [facility] [address] [place], [address] Serum or plasma albumin kirstin urement (mass/volume)Ordered By: Julieth Olmedo on 08-07-2024 Albumin [Mass/Vol] 2.8 g/dL Low 3.2-5.0 [facility] Comment on above: Order Comment: 211.1 Performed By: #### L 500.4050, L503.5510 #### [facility] [address] [place], [address] Serum or plasma alkaline loan sphatase measurementOrdered By: Julieth Olmedo on 08-07-2024 ALP [Catalytic activity/Vol] 174 U/L High 45-117 [facility] Serum or plasma calcium kirstin urement (mass/volume)Ordered By: Julieth Olmedo on 08-07-2024 Calcium [Mass/Vol] 9.3 mg/dL 8.5-10.1 [facility] Serum or plasma creatinine m easurement (mass/volume)Ordered By: Julieth Olmedo on 08-07-2024 Creatinine [Mass/Vol] 1.28 mg/dL High 0.55-1.02 [facility] Comment on above: The validity of the calculated GFR & GFRAA in patients over 70 years has not been determined. Clinical correlation is essential. Order Comment: 211.1 Result Comment: The validity of the calculated GFR GFRAA in patients over 70 years has not been determined. Clinical correlation is essential. Performed By: #### L 500.4050, L503.5510 #### [facility] [address] [place], [address] Serum or plasma urea nitroge n measurement (mass/volume)Ordered By: Julieth Olmedo on 08-07-2024 Urea nitrogen [Mass/Vol] 14 mg/dL Normal 7-18 [facility] Comment on above: Order Comment: 211.1 Performed By: #### L 500.4050, L503.5510 #### [facility] [address] [place], [address] Sodium levelOrdered By: Julieth Olmedo on 08-07-2024 Sodium [Moles/Vol] 139 mmol/L Normal 136-145 [facility] Comment on above: Order Comment: 211.1 Performed By: #### L 500.4050, L503.5510 #### [facility] [address] [place], [address] Total proteinOrdered By: Karla Olmedo on 08-07-2024 Protein [Mass/Vol] 6.4 g/dL 6.4-8.2 [facility] Venous blood ammonia measure mentOrdered By: Julieth Olmedo on 08-07-2024 Ammonia (P) [Moles/Vol] 31.0 umol/L Normal 11-32 [facility] Comment on above: Order Comment: 211.1 Performed By: #### L 500.4050, L503.5510 #### [facility] [address] [place], [address] Basic Metabolic Profile (BMP )on 08-03-2024 BUN/CRE 11.8 RATIO Normal 10-20 [facility] Comment on above: Order Comment: 211-1 Performed By: #### L 500.2500 #### [facility] [address] [place], [address] CA,Total 8.9 mg/dL Normal 8.5-10.1 [facility] Comment on above: Order Comment: Performed By: #### L 500.2500 #### [facility] [address] [place], [address] Chloride [Moles/Vol] 107 mmol/L Normal 98-107 [facility] Comment on above: Order Comment: Performed By: #### L 500.2500 #### [facility] [address] [place], [address] CO2 [Moles/Vol] 26.0 mmol/L Normal 21.0-32.0 [facility] Comment on above: Order Comment: Performed By: #### L 500.2500 #### [facility] [address] [place], [address] Creatinine [Mass/Vol] 1.27 mg/dL High 0.55-1.02 [facility] Comment on above: Order Comment: Result Comment: The validity of the calculated GFR GFRAA in patients over 70 years has not been determined. Clinical correlation is essential. Performed By: #### L 500.2500 #### [facility] [address] [place], [address] EST GFR - AA 52 mL/min Low >60 [facility] Comment on above: Order Comment: Result Comment: Afri can Mosoth[place] GFR Calc Performed By: #### L 500.2500 #### [facility] [address] [place], [address] GAP 7 Normal 5-15 [facility] Comment on above: Order Comment: Performed By: #### L 500.2500 #### [facility] [address] [place], [address] GFR/1.73 sq M.predicted among non-blacks MDRD (S/P/Bld) [Vol rate/Area] 43 mL/min/{1.73_m2} Low >60 [facility] Comment on above: Order Comment: Result Comment: Non- GFR Calc Performed By: #### L 500.2500 #### [facility] [address] [place], [address] Glucose [Mass/Vol] 117 mg/dL High 74-106 [facility] Comment on above: Order Comment: Result Comment: Fast ing Glucose result from 100 to 125 mg/dL suggests IMPAIRED HOMEOSTASIS per A.D.A. criteria. Performed By: #### L 500.2500 #### [facility] [address] [place], [address] Potassium [Moles/Vol] 3.5 mmol/L Normal 3.5-5.1 [facility] Comment on above: Order Comment: Performed By: #### L 500.2500 #### [facility] [address] [place], [address] Sodium [Moles/Vol] 140 mmol/L Normal 136-145 [facility] Comment on above: Order Comment: Performed By: #### L 500.2500 #### [facility] [address] [place], [address] Urea nitrogen [Mass/Vol] 15 mg/dL Normal 7-18 [facility] Comment on above: Order Comment: Performed By: #### L 500.2500 #### [facility] [address] [place], [address] Blood urea nitrogen (BUN)/cr eatinine ratioOrdered By: Julieth Olmedo on 08-03-2024 Urea nitrogen/Creatinine [Mass ratio] 11.8 mg/mg 10-20 [facility] Carbon dioxide measurementOr dered By: Julieth Olmedo on 08-03-2024 CO2 [Moles/Vol] 26.0 mmol/L 21.0-32.0 [facility] Chloride measurementOrdered By: Julieth Olmedo on 08-03-2024 Chloride [Moles/Vol] 107 mmol/L 98-107 [facility] Estimated glomerular filtrat ion rate (GFR) AmericanOrdered By: Julieth Olmedo on 08-03-2024 Estimated GFR (MDRD) Amer 52 mL/min Low >60 [facility] Comment on above: GFR Calc Glomerular filtration rate ( GFR) estimationOrdered By: Julieth Olmedo on 08-03-2024 Estimated GFR (MDRD) Non-Af Amer 43 mL/min Low >60 [facility] Comment on above: Non- GFR Calc Glucose measurementOrdered B y: Julieth Olmedo on 08-03-2024 Glucose [Mass/Vol] 117 mg/dL High 74-106 [facility] Comment on above: Fasting Glucose resu lt from 100 to 125 mg/dL suggests IMPAIRED HOMEOSTASIS per A.D.A. criteria. Potassium measurementOrdered By: Julieth Olmedo on 08-03-2024 Potassium [Moles/Vol] 3.5 mmol/L 3.5-5.1 [facility] Serum anion gap measurementO rdered By: Julieth Olmedo on 08-03-2024 Anion gap [Moles/Vol] 7 mmol/L 5-15 [facility] Serum or plasma calcium kirstin urement (mass/volume)Ordered By: Julieth Olmedo on 08-03-2024 Calcium [Mass/Vol] 8.9 mg/dL 8.5-10.1 [facility] Serum or plasma creatinine m easurement (mass/volume)Ordered By: Julieth Olmedo on 08-03-2024 Creatinine [Mass/Vol] 1.27 mg/dL High 0.55-1.02 [facility] Comment on above: The validity of the calculated GFR & GFRAA in patients over 70 years has not been determined. Clinical correlation is essential. Serum or plasma urea nitroge n measurement (mass/volume)Ordered By: Julieth Olmedo on 08-03-2024 Urea nitrogen [Mass/Vol] 15 mg/dL 7-18 [facility] Sodium levelOrdered By: Julieth Olmedo on 08-03-2024 Sodium [Moles/Vol] 140 mmol/L 136-145 [facility] Ammoniaon 08-02-2024 Ammonia (P) [Moles/Vol] 40.0 umol/L High [address] [place] [address] Comment on above: Order Comment: 211.1 Performed By: #### L 503.5510 #### [facility] [address] [place], [address] Venous blood ammonia measure mentOrdered By: Julieth Olmedo on 08-02-2024 Ammonia (P) [Moles/Vol] 40.0 umol/L High [facility] TSH QnOrdered By: Julieth gordillo on 07-25-2024 Thyroid Stimulating Hormone (TSH) 1.990 uIU/mL 0.358-3.740 [facility] Thyroid Stim Hormone (TSH)on 07-25-2024 TSH 1.990 uIU/mL Normal 0.358-3.740 [facility] Comment on above: Order Comment: 211.1 Performed By: #### L 500.4050, L503.5510 #### [facility] [address] [place], [address] Ammoniaon 07-20-2024 Ammonia (P) [Moles/Vol] 24.0 umol/L Normal [address] [place] [address] Comment on above: Order Comment: 211.1 Performed By: #### L 500.4050, L503.5510 #### [facility] [address] [place], [address] Venous blood ammonia measure mentOrdered By: Julieth Olmedo on 07-20-2024 Ammonia (P) [Moles/Vol] 24.0 umol/L [facility] Basic Metabolic Profile (BMP )on 07-19-2024 BUN/CRE 9.2 RATIO Low 10-20 [facility] Comment on above: Order Comment: 211.1 Performed By: #### L 500.4050, L503.5510 #### [facility] [address] [place], [address] CA,Total 9.3 mg/dL Normal 8.5-10.1 [facility] Comment on above: Order Comment: . Performed By: #### L 500.4050, L503.5510 #### [facility] [address] [place], [address] EST GFR - AA 50 mL/min Low >60 [facility] Comment on above: Order Comment: 211.1 Result Comment: Afri can Mosotho GFR Calc Performed By: #### L 500.4050, L503.5510 #### [facility] [address] [place], [address] GAP 6 Normal 5-15 [facility] Comment on above: Order Comment: . Performed By: #### L 500.4050, L503.5510 #### [facility] [address] [place], [address] GFR/1.73 sq M.predicted among non-blacks MDRD (S/P/Bld) [Vol rate/Area] 42 mL/min/{1.73_m2} Low >60 [facility] Comment on above: Order Comment: . Result Comment: Non- GFR Calc Performed By: #### L 500.4050, L503.5510 #### [facility] [address] [place], [address] Blood urea nitrogen (BUN)/cr eatinine ratioOrdered By: Julieth Olmedo on 07-19-2024 Urea nitrogen/Creatinine [Mass ratio] 9.2 mg/mg Low 10-20 [facility] Carbon dioxide measurementOr dered By: Julieth Olmedo on 07-19-2024 CO2 [Moles/Vol] 28.0 mmol/L Normal 21.0-32.0 [facility] Comment on above: Order Comment: . Performed By: #### L 500.4050, L503.5510 #### [facility] [address] [place], [address] Chloride measurementOrdered By: Julieth Olmedo on 07-19-2024 Chloride [Moles/Vol] 107 mmol/L Normal 98-107 [facility] Comment on above: Order Comment: 211.1 Performed By: #### L 500.4050, L503.5510 #### [facility] [address] [place], [address] Estimated glomerular filtrat ion rate (GFR) AmericanOrdered By: Julieth Olmedo on 07-19-2024 Estimated GFR (MDRD) Amer 50 mL/min Low >60 [facility] Comment on above: GFR Calc Glomerular filtration rate ( GFR) estimationOrdered By: Julieth Olmedo on 07-19-2024 Estimated GFR (MDRD) Non-Af Amer 42 mL/min Low >60 [facility] Comment on above: Non- GFR Calc Glucose measurementOrdered B y: Julieth Olmedo on 07-19-2024 Glucose [Mass/Vol] 125 mg/dL High 74-106 [facility] Comment on above: Fasting Glucose resu lt from 100 to 125 mg/dL suggests IMPAIRED HOMEOSTASIS per A.D.A. criteria. Order Comment: 211.1 Result Comment: Fast ing Glucose result from 100 to 125 mg/dL suggests IMPAIRED HOMEOSTASIS per A.D.A. criteria. Performed By: #### L 500.4050, L503.5510 #### [facility] [address] [place], [address] HH, Hemoglobin AND Hematocri ton 07-19-2024 Hematocrit (Bld) [Volume fraction] 28.5 % Low 37-47 [facility] Comment on above: Order Comment: 211.1 Performed By: #### L 500.4050, L503.5510 #### [facility] [address] [place], [address] Hemoglobin (Bld) [Mass/Vol] 8.8 g/dL Low 12.0-15.0 [facility] Comment on above: Order Comment: 211.1 Performed By: #### L 500.4050, L503.5510 #### [facility] [address] [place], [address] Hematocrit Auto (Bld) [Volum e fraction]Ordered By: Julieth Olmedo on 07-19-2024 Hematocrit (Bld) [Volume fraction] 28.5 % Low 37-47 [facility] Hemoglobin measurementOrdere d By: Julieth Olmedo on 07-19-2024 Hemoglobin (Bld) [Mass/Vol] 8.8 g/dL Low 12.0-15.0 [facility] Potassium measurementOrdered By: Julieth Olmedo on 07-19-2024 Potassium [Moles/Vol] 3.7 mmol/L Normal 3.5-5.1 [facility] Comment on above: Order Comment: 211.1 Performed By: #### L 500.4050, L503.5510 #### [facility] [address] [place], [address] Serum anion gap measurementO rdered By: Julieth Olmedo on 07-19-2024 Anion gap [Moles/Vol] 6 mmol/L 5-15 [facility] Serum or plasma calcium kirstin urement (mass/volume)Ordered By: Julieth Olmedo on 07-19-2024 Calcium [Mass/Vol] 9.3 mg/dL 8.5-10.1 [facility] Serum or plasma creatinine m easurement (mass/volume)Ordered By: Julieth Olmedo on 07-19-2024 Creatinine [Mass/Vol] 1.31 mg/dL High 0.55-1.02 [facility] Comment on above: The validity of the calculated GFR & GFRAA in patients over 70 years has not been determined. Clinical correlation is essential. Order Comment: 211.1 Result Comment: The validity of the calculated GFR GFRAA in patients over 70 years has not been determined. Clinical correlation is essential. Performed By: #### L 500.4050, L503.5510 #### [facility] [address] [place], [address] Serum or plasma urea nitroge n measurement (mass/volume)Ordered By: Julieth Olmedo on 07-19-2024 Urea nitrogen [Mass/Vol] 12 mg/dL Normal 7-18 [facility] Comment on above: Order Comment: 211.1 Performed By: #### L 500.4050, L503.5510 #### [facility] [address] [place], [address] Sodium levelOrdered By: Julieth Olmedo on 07-19-2024 Sodium [Moles/Vol] 140 mmol/L Normal 136-145 [facility] Comment on above: Order Comment: 211.1 Performed By: #### L 500.4050, L503.5510 #### [facility] [address] [place], [address] Ammoniaon 07-18-2024 Ammonia (P) [Moles/Vol] 40.0 umol/L High [facility] Comment on above: Order Comment: 211-1 Performed By: #### L 503.5510 #### [facility] [address] [place], [address] Venous blood ammonia measure mentOrdered By: Julieth Olmedo on 07-18-2024 Ammonia (P) [Moles/Vol] 40.0 umol/L [address] [facility] HH, Hemoglobin AND Hematocri ton 07-17-2024 Hematocrit (Bld) [Volume fraction] 24.0 % Low 37-47 [facility] Comment on above: Order Comment: 211.1 Performed By: #### L 100.0600 #### [facility] [address] [place], [address] Hemoglobin (Bld) [Mass/Vol] 7.4 g/dL Low 12.0-15.0 [facility] Comment on above: Order Comment: 211.1 Performed By: #### L 100.0600 #### [facility] [address] [place], [address] Hematocrit Auto (Bld) [Volum e fraction]Ordered By: Julieth Olmedo on 07-17-2024 Hematocrit (Bld) [Volume fraction] 24.0 % Low 37-47 [facility] Hemoglobin measurementOrdere d By: Julieth Olmedo on 07-17-2024 Hemoglobin (Bld) [Mass/Vol] 7.4 g/dL Low 12.0-15.0 [facility] Ammoniaon 07-11-2024 Ammonia (P) [Moles/Vol] 44.0 umol/L High [facility] Comment on above: Performed By: #### L 500.4050, L503.5510 #### [facility] [address] [place], [address] Venous blood ammonia measure mentOrdered By: Julieth Olmedo on 07-11-2024 Ammonia (P) [Moles/Vol] 44.0 umol/L High [address] [place] [address] Folates, (Folic Acid)on FOLATES 11.90 ng/mL Normal 3.1-55.4 [facility] Comment on above: Order Comment: 211.1 Performed By: #### L 500.4050, L503.5510 #### [facility] [address] [place], [address] HH, Hemoglobin AND Hematocri ton 07-10-2024 Hematocrit (Bld) [Volume fraction] 25.2 % Low 37-47 [facility] Comment on above: Order Comment: 211.1 Performed By: #### L 500.4050, L503.5510 #### [facility] [address] [place], [address] Hemoglobin (Bld) [Mass/Vol] 7.7 g/dL Low 12.0-15.0 [facility] Comment on above: Order Comment: 211.1 Performed By: #### L 500.4050, L503.5510 #### [facility] [address] [place], [address] Ironon 07-10-2024 Iron [Mass/Vol] 73 ug/dL Normal 50-170 [facility] Comment on above: Order Comment: 211.1 Performed By: #### L 500.4050, L503.5510 #### [facility] [address] [place], [address] Vitamin B12on 07-10-2024 Cobalamin (Vitamin B12) [Mass/Vol] 1301 pg/mL High 211-911 [facility] Comment on above: Order Comment: 211.1 Performed By: #### L 500.4050, L503.5510 #### [facility] [address] [place], [address] CBC-Complete Blood Cnt No Di ffon 07-09-2024 Erythrocyte distribution width (RBC) [Ratio] 14.6 % Normal 11.6-14.6 [facility] Comment on above: Order Comment: 211.1 Performed By: #### L 100.0500, L501.9985, L500.4050 #### [facility] [address] [place], [address] Hematocrit (Bld) [Volume fraction] 25.6 % Low 37-47 [facility] Comment on above: Order Comment: 211.1 Performed By: #### L 100.0500, L501.9985, L500.4050 #### [facility] [address] [place], [address] Hemoglobin (Bld) [Mass/Vol] 7.8 g/dL Low 12.0-15.0 [facility] Comment on above: Order Comment: 211.1 Performed By: #### L 100.0500, L501.9985, L500.4050 #### [facility] [address] [place], [address] MCH (RBC) [Entitic mass] 30.4 pg Normal 27.0-32.0 [facility] Comment on above: Order Comment: 211.1 Performed By: #### L 100.0500, L501.9985, L500.4050 #### [facility] [address] [place], [id number] MCHC (RBC) [Mass/Vol] 30.5 g/dL Low 32-36 [facility] Comment on above: Order Comment: 211.1 Performed By: #### L 100.0500, L501.9985, L500.4050 #### [facility] [address] [place], [id number] MCV (RBC) [Entitic vol] 99.6 fL High 81-99 [facility] Comment on above: Order Comment: 211.1 Performed By: #### L 100.0500, L501.9985, L500.4050 #### [facility] [address] [place], [address] Platelet mean volume (Bld) [Entitic vol] 10.7 fL Normal 6.2-12.0 [facility] Comment on above: Order Comment: 211.1 Performed By: #### L 100.0500, L501.9985, L500.4050 #### [facility] [address] [place], [id number] Platelets (Bld) [#/Vol] 112 10*3/uL Low 150-450 [facility] Comment on above: Order Comment: 211.1 Performed By: #### L 100.0500, L501.9985, L500.4050 #### [facility] [address] [place], [id number] RBC (Bld) [#/Vol] 2.57 10*6/uL Low 4.2-5.4 [facility] Comment on above: Order Comment: 211.1 Performed By: #### L 100.0500, L501.9985, L500.4050 #### [facility] [address] [place], [id number] RDW SD 52.4 fl High 35.1-43.9 [facility] Comment on above: Order Comment: 211.1 Performed By: #### L 100.0500, L501.9985, L500.4050 #### [facility] [address] [place], [id number] WBC (Bld) [#/Vol] 5.1 10*3/uL Normal 4.4-11.0 [facility] Comment on above: Order Comment: 211.1 Performed By: #### L 100.0500, L501.9985, L500.4050 #### [facility] [address] [place], [address] Comprehensive Metabolic Prof ilon 07-09-2024 Albumin [Mass/Vol] 2.3 g/dL Low 3.2-5.0 [facility] Comment on above: Order Comment: 211.1 Performed By: #### L 100.0500, L501.9985, L500.4050 #### [facility] [address] [place], [address] Albumin/Globulin [Mass ratio] 0.8 {ratio} Low 0.9-2.4 [facility] Comment on above: Order Comment: 211.1 Performed By: #### L 100.0500, L501.9985, L500.4050 #### [facility] [address] [place], [id number] ALK P 122 U/L High 45-117 [facility] Comment on above: Order Comment: 211.1 Performed By: #### L 100.0500, L501.9985, L500.4050 #### [facility] [address] [place], [id number] ALT [Catalytic activity/Vol] 30 U/L Normal 13-56 [facility] Comment on above: Order Comment: 211.1 Performed By: #### L 100.0500, L501.9985, L500.4050 #### [facility] [address] [place], [address] AST [Catalytic activity/Vol] 42 U/L High 15-37 [facility] Comment on above: Order Comment: 211.1 Performed By: #### L 100.0500, L501.9985, L500.4050 #### [facility] [address] [place], [address] Bilirubin [Mass/Vol] 0.80 mg/dL Normal 0.20-1.00 [facility] Comment on above: Order Comment: 211.1 Result Comment: For patients on eltrombopag therapy, use of Dimension [place] TBIL is not recommended. Performed By: #### L 100.0500, L501.9985, L500.4050 #### [facility] [address] [place], [address] BUN/CRE 14.2 RATIO Normal 10-20 [facility] Comment on above: Order Comment: 211.1 Performed By: #### L 100.0500, L501.9985, L500.4050 #### [facility] [address] [place], [address] CA,Total 8.9 mg/dL Normal 8.5-10.1 [facility] Comment on above: Order Comment: 211.1 Performed By: #### L 100.0500, L501.9985, L500.4050 #### [facility] [address] [place], [address] Chloride [Moles/Vol] 109 mmol/L High 98-107 [facility] Comment on above: Order Comment: 211.1 Performed By: #### L 100.0500, L501.9985, L500.4050 #### [facility] [address] [place], [address] CO2 [Moles/Vol] 27.0 mmol/L Normal 21.0-32.0 [facility] Comment on above: Order Comment: .1 Performed By: #### L 100.0500, L501.9985, L500.4050 #### [facility] [address] [place], [address] Creatinine [Mass/Vol] 1.13 mg/dL High 0.55-1.02 [facility] Comment on above: Order Comment: 211.1 Result Comment: The validity of the calculated GFR GFRAA in patients over 70 years has not been determined. Clinical correlation is essential. Performed By: #### L 100.0500, L501.9985, L500.4050 #### [facility] [address] [place], [address] EST GFR - AA 60 mL/min Normal >60 [facility] Comment on above: Order Comment: .1 Result Comment: Afri can [place] GFR Calc Performed By: #### L 100.0500, L501.9985, L500.4050 #### [facility] [address] [place], [address] GAP 6 Normal 5-15 [facility] Comment on above: Order Comment: .1 Performed By: #### L 100.0500, L501.9985, L500.4050 #### [facility] [address] [place], [address] GFR/1.73 sq M.predicted among non-blacks MDRD (S/P/Bld) [Vol rate/Area] 49 mL/min/{1.73_m2} Low >60 [facility] Comment on above: Order Comment: 211.1 Result Comment: Non- GFR Calc Performed By: #### L 100.0500, L501.9985, L500.4050 #### [facility] [address] [place], [address] Globulin (S) [Mass/Vol] 3.0 g/dL Normal 2.2-4.2 [facility] Comment on above: Order Comment: 211.1 Performed By: #### L 100.0500, L501.9985, L500.4050 #### [facility] [address] [place], [address] Glucose [Mass/Vol] 120 mg/dL High 74-106 [facility] Comment on above: Order Comment: 211.1 Result Comment: Fast ing Glucose result from 100 to 125 mg/dL suggests IMPAIRED HOMEOSTASIS per A.D.A. criteria. Performed By: #### L 100.0500, L501.9985, L500.4050 #### [facility] [address] [place], [address] Potassium [Moles/Vol] 3.4 mmol/L Low 3.5-5.1 [facility] Comment on above: Order Comment: 211.1 Performed By: #### L 100.0500, L501.9985, L500.4050 #### [facility] [address] [place], [address] Sodium [Moles/Vol] 142 mmol/L Normal 136-145 [facility] Comment on above: Order Comment: 211.1 Performed By: #### L 100.0500, L501.9985, L500.4050 #### [facility] [address] [place], [address] T PROT 5.3 g/dL Low 6.4-8.2 [facility] Comment on above: Order Comment: 211.1 Performed By: #### L 100.0500, L501.9985, L500.4050 #### [facility] [address] [place], [address] Urea nitrogen [Mass/Vol] 16 mg/dL Normal 7-18 [facility] Comment on above: Order Comment: 211.1 Performed By: #### L 100.0500, L501.9985, L500.4050 #### [facility] [address] [place], [address] Hemoglobin A1con 07-09-2024 HbA1c (Bld) [Mass fraction] 5.5 % Normal 3.8-5.6 [facility] Comment on above: Order Comment: 211.1 Result Comment: Norm al < 5.7 % Prediabetic 5.7 - 6.4 % Diabetic >or= 6.5 % Please note range changes. Performed By: #### L 100.0500, L501.9985, L500.4050 #### [facility] [address] [place], [address] [id number] 07-06-2024 [id number] Patient Choice Patient Name: MIKEL WINSTON Date of : 1945 Normal [facility] [id number] 07-04-2024 [id number] Normal [facility] AMMONIAon 07-04-2024 Ammonia (P) [Moles/Vol] 15 umol/L Normal 9-30 [facility] Comment on above: Performed By: #### L AB47 ####Claims Investigator: RUTH ANN BRAGG ([id number])[facility] ([facility])[address] [place] [address] CALCIUM, IONIZEDon 4 CALCIUM IONIZED 4.60 mg/dL Normal 4.30-5.20 [facility] Comment on above: Performed By: #### L AB54 ####Claims Investigator: RUTH ANN BRAGG ([id number])[facility] ([facility])[address] [place] [address] PH, IONIZED CALCIUM 7.47 High 7.31-7.46 [facility] Comment on above: Performed By: #### L AB54 ####Claims Investigator: RUTH ANN BRAGG ([id number])[facility] ([facility])[address] CBC W Auto Differential pane l (Bld)on 07-04-2024 Basophils (Bld) [#/Vol] 0 10*3/uL 0.0 - 0.2 10*3/uL [facility] Basophils/100 WBC (Bld) 0.5 % 0.0 - 2.0 % [facility] Eosinophils (Bld) [#/Vol] 0.4 10*3/uL 0. 0 - 0.5 10*3/uL [facility] Eosinophils/100 WBC (Bld) 6.3 % High 0.0 - 6.0 % [facility] Erythrocyte distribution width (RBC) [Ratio] 14.5 % 11.5 - 15.0 % [facility] Hematocrit (Bld) [Volume fraction] 25.2 % Low 35.0 - 47.0 % [facility] Hemoglobin (Bld) [Mass/Vol] 7.7 g/dL Low 11.7 - 16.0 g/dL [facility] Immature granulocytes (Bld) [#/Vol] 0 10*3/uL NINF - 0.1 10*3/uL [facility] Immature granulocytes/100 WBC (Bld) 0.5 % 0.0 - 2.0 % [facility] Interpretation and review of laboratory results Abnormal [facility] IPF 3 [facility] Lymphocytes (Bld) [#/Vol] 1.4 10*3/uL 1. 0 - 4.3 10*3/uL [facility] Lymphocytes/100 WBC (Bld) 24.4 % 15 .0 - 45.0 % [facility] MCH (RBC) [Entitic mass] 31 pg 26. 0 - 34.0 pg [facility] MCHC (RBC) [Mass/Vol] 30.6 % 30.5 - 36.0 % [facility] MCV (RBC) [Entitic vol] 101.6 fL High 77.0 - 99.0 fL [facility] Monocytes (Bld) [#/Vol] 1.2 10*3/uL High 0.0 - 0.9 10*3/uL [facility] Monocytes/100 WBC (Bld) 20.2 % High 5.0 - 13.0 % [facility] Neutrophils (Bld) [#/Vol] 2.7 10*3/uL 1. 8 - 7.5 10*3/uL [facility] Neutrophils/100 WBC (Bld) 48.1 % 38 .0 - 82.0 % [facility] Nucleated RBC/100 WBC (Bld) [Ratio] 0 % [facility] Platelet mean volume (Bld) [Entitic vol] 10.9 fL 9.0 - 12.7 fL [facility] Platelets (Bld) [#/Vol] 94 10*3/uL Low 140 - 440 10*3/uL [facility] RBC (Bld) [#/Vol] 2.48 10*6/uL Low 3.80 - 5.2 0 10*6/uL [facility] WBC (Bld) [#/Vol] 5.7 10*3/uL 3.6 - 10.7 10*3/uL [facility] CBC WITH AUTO DIFFERENTIALon 07-04-2024 Basophils (Bld) [#/Vol] 0.0 10*3/uL Normal 0.0-0.[address] [facility] Comment on above: Performed By: #### L [id number] ####Claims Investigator: RUTH ANN BRAGG ([id number])[facility] ([facility])[address] Basophils/100 WBC (Bld) 0.5 % Normal 0.0-2.0 [facility] Comment on above: Performed By: #### L [id number] ####Claims Investigator: RUTH ANN BRAGG ([id number])[facility] ([facility])[address] Eosinophils (Bld) [#/Vol] 0.4 10*3/uL Normal 0.0-0.[address] [facility] Comment on above: Performed By: #### L [id number] ####Claims Investigator: RUTH ANN BRAGG ([id number])[facility] ([facility])[address] Eosinophils/100 WBC (Bld) 6.3 % High 0.0-6.[address] [facility] Comment on above: Performed By: #### L [id number] ####Claims Investigator: RUTH ANN [id number])[facility] ([facility])[address] Erythrocyte distribution width (RBC) [Ratio] 14.5 % Normal 11.5-15.[address] [facility] Comment on above: Performed By: #### L [id number] ####Claims Investigator: RUTH ANN BRAGG ([id number])[facility] ([facility])[address] Hematocrit (Bld) [Volume fraction] 25.2 % Low 35.0-47.[address] [facility] Comment on above: Performed By: #### L [id number] ####Claims Investigator: RUTH ANN BRAGG ([id number])[facility] ([facility])[address] Hemoglobin (Bld) [Mass/Vol] 7.7 g/dL Low 11.7-16.0 [facility] Comment on above: Performed By: #### L [id number] ####Claims Investigator: RUTH ANN BRAGG ([id number])[facility] ([facility])[address] IMMATURE GRANS % 0.5 % Normal 0.0-2.0 [facility] Comment on above: Performed By: #### L [id number] ####Claims Investigator: RUTH ANN BRAGG ([id number])[facility] ([facility])[address] IMMATURE GRANS ABSOLUTE 0.0 10*3/uL Normal <0.[address] [facility] Comment on above: Performed By: #### L [id number] ####Claims Investigator: RUTH ANN BRAGG ([id number])[facility] ([facility])[address] IPF [address] [facility] Comment on above: Performed By: #### L [id number] ####Claims Investigator: RUTH ANN BRAGG ([id number])[facility] ([facility])[address] Lymphocytes (Bld) [#/Vol] 1.4 10*3/uL Normal 1.0-4.[address] [facility] Comment on above: Performed By: #### L [id number] ####Claims Investigator: RUTH ANN HERRONSHELTON ([id number])[facility] ([facility])[address] Lymphocytes/100 WBC (Bld) 24.4 % Normal 15.0-45.[address] [facility] Comment on above: Performed By: #### L [id number] ####Claims Investigator: RUTH ANN BRAGG ([id number])[facility] ([facility])[address] MCH (RBC) [Entitic mass] 31.0 pg Normal 26.0-34.[address] [facility] Comment on above: Performed By: #### L [id number] ####Claims Investigator: RUTH ANN BRAGG ([id number])[facility] ([facility])[address] MCHC 30.6 % Normal 30.5-36.[address] [facility] Comment on above: Performed By: #### L [id number] ####Claims Investigator: RUTH ANN BRAGG ([id number])[facility]OMERY[facility]ARG[facility]ET[facility] ([facility])[address] MCV (RBC) [Entitic vol] 101.6 fL High 77.0-99.0 [facility] Comment on above: Performed By: #### L [id number] ####Claims Investigator: RUTH ANN BRAGG ([id number])[facility] ([facility])[address] Monocytes (Bld) [#/Vol] 1.2 10*3/uL High 0.0-0.[address] [facility] Comment on above: Performed By: #### L [id number] ####Claims Investigator: RUTH ANN BRAGG ([id number])[facility] ([facility])[address] Monocytes/100 WBC (Bld) 20.2 % High 5.0-13.0 [facility] Comment on above: Performed By: #### L [id number] ####Claims Investigator: RUTH ANN BRAGG ([id number])[facility] ([facility])[address] NEUTROPHILS ABSOLUTE 2.7 10*3/uL Normal 1.8-7.5 [facility] Comment on above: Performed By: #### L [id number] ####Claims Investigator: RUTH ANN BRAGG ([id number])[facility] [place] ([facility])[address] Neutrophils/100 WBC (Bld) 48.1 % Normal 38.0-82.0 [facility] Comment on above: Performed By: #### L [id number] ####Claims Investigator: RUTH ANN BRAGG ([id number])[facility] [place] ([facility])[address] NRBC 0.0 /100 WBCs Normal 0.0-2.0 [facility] Comment on above: Performed By: #### L [id number] ####Claims Investigator: RUTH ANN BRAGG ([id number])[facility] ([facility])[address] Platelet mean volume (Bld) [Entitic vol] 10.9 fL Normal 9.0-12.7 [facility] Comment on above: Performed By: #### L [id number] ####Claims Investigator: RUTH ANN BRAGG ([id number])[facility] ([facility])[address] [place] [address] [place] Platelets (Bld) [#/Vol] 94 10*3/uL Low 140-440 [facility] Comment on above: Performed By: #### L [id number] ####Claims Investigator: RUTH ANN BRAGG ([id number])[facility] [place] ([facility])[address] [place] [address] [place] RBC (Bld) [#/Vol] 2.48 10*6/uL Low 3.80-5.20 [facility] Comment on above: Performed By: #### L [id number] ####Claims Investigator: RUTH ANN BRAGG ([id number])[facility] ([facility])[address] WBC (Bld) [#/Vol] 5.7 10*3/uL Normal 3.6-10.7 [facility] Comment on above: Performed By: #### L [id number] ####Claims Investigator: RUTH ANN BRAGG ([id number])[facility] ([facility])[address] COMPREHENSIVE METABOLIC PANE Smith 07-04-2024 Albumin [Mass/Vol] 2.3 g/dL Low 3.5-5.0 [facility] Comment on above: Performed By: #### L AB17, [id number], [id number] ####Claims Investigator: RUTH ANN BRAGG ([id number])[facility] [place] ([facility])[address] ALP [Catalytic activity/Vol] 113 U/L Normal 38-126 [facility] Comment on above: Performed By: #### L AB17, DMA430, DCK256 ####Claims Investigator: RUTH ANN BRAGG ([id number])[facility] ([facility])[address] ALT [Catalytic activity/Vol] 28 U/L Normal 0-34 [facility] Comment on above: Performed By: #### L AB17, HSD223, AEW808 ####Claims Investigator: RUTH ANN BRAGG ([id number])[facility] [place] ([facility])[address] Anion gap [Moles/Vol] -1 mmol/L Low 3-13 [facility] Comment on above: Performed By: #### L AB17, [id number], VGU320 ####Claims Investigator: RUTH ANN BRAGG ([id number])[facility] ([facility])[address] [place] [address] [place] AST [Catalytic activity/Vol] 49 U/L High 15-46 [facility] Comment on above: Performed By: #### L AB17, JMJ327, TXN245 ####Claims Investigator: RUTH ANN BRAGG ([phone])[facility] ([facility])[address] Bilirubin [Mass/Vol] 0.6 mg/dL Normal 0.2-1.3 [facility] Comment on above: Performed By: #### L AB17, DPP429, NVU438 ####Claims Investigator: RUTH ANN BRAGG ([id number])[facility] [place] ([facility])[address] Calcium [Mass/Vol] 8.4 mg/dL Normal 8.4-10.4 [facility] Comment on above: Performed By: #### L AB17, GNH209, WHY926 ####Claims Investigator: RUTH ANN BRAGG ([id number])[facility] ([facility])[address] [place] [address] [place] Chloride [Moles/Vol] 110 mmol/L High 98-107 [facility] Comment on above: Performed By: #### L AB17, VEQ638, ILC578 ####Claims Investigator: RUTH ANN BRAGG ([id number])[facility] ([facility])[address] [place] [address] [place] CO2 [Moles/Vol] 28 mmol/L Normal 22-30 [facility] Comment on above: Performed By: #### L AB17, HFR409, GSG348 ####Claims Investigator: RUTH ANN BRAGG ([id number])[facility] [place] ([facility])[address] [place] [address] [place] Creatinine [Mass/Vol] 1.22 mg/dL High 0.52-1.04 [facility] Comment on above: Performed By: #### L AB17, YGD471, FJS427 ####Claims Investigator: RUTH ANN BRAGG ([id number])[facility] [place] ([facility])[address] [place] [address] [place] GLOMERULAR FILTRATION RATE ML/MIN/1.73 SQ M.PREDICTED 45.5 mL/min/1.73m*2 Low >60.0 [facility] Comment on above: Result Comment: Calc ulation based on the Chronic Kidney Disease Epidemiology Collaboration (CKD-EPI) equation refit without adjustment for race Performed By: #### L AB17, DYK942, JPN597 ####Claims Investigator: RUTH ANN BRAGG ([id number])[facility] [place] ([facility])[address] Glucose [Mass/Vol] 98 mg/dL Normal 70-100 [facility] Comment on above: Performed By: #### L AB17, JUY074, ELL749 ####Claims Investigator: RUTH ANN BRAGG ([id number])[facility] [place] ([facility])[address] [place] [address] [place] Potassium [Moles/Vol] 3.8 mmol/L Normal 3.5-5.1 [facility] Comment on above: Performed By: #### L AB17, JPT157, RFW347 ####Claims Investigator: RUTH ANN BRAGG ([id number])[facility] [place] ([facility])[address] [place] [address] [place] Protein [Mass/Vol] 4.9 g/dL Low 6.3-8.2 [facility] Comment on above: Performed By: #### L AB17, OEO736, OHQ057 ####Claims Investigator: RUTH ANN BRAGG ([id number])[facility] ([facility])[address] [place] [address] [place] Sodium [Moles/Vol] 136 mmol/L Normal 135-145 [facility] Comment on above: Performed By: #### L AB17, RGF105, UTC810 ####Claims Investigator: RUTH ANN BRAGG ([id number])[facility] ([facility])[address] [place] [address] [place] Urea nitrogen [Mass/Vol] 20 mg/dL High 7-17 [facility] Comment on above: Performed By: #### L AB17, OOV340, [id number] ####Claims Investigator: RUTH ANN BRAGG ([id number])[facility] ([facility])[address] [place] [address] Calcium.ionized [Moles/Vol]o n 07-04-2024 Calcium.ionized (Bld) [Moles/Vol] 4.6 mg/dL 4.30 - 5.20 mg/dL [facility] Interpretation and review of laboratory results Abnormal [facility] PH, IONIZED CALCIUM 7.47 High 7.31 - 7.46 [facility] Comprehensive metabolic 1998 panelon 07-04-2024 Albumin [Mass/Vol] 2.3 g/dL Low 3.5 - 5.0 g/dL [facility] ALP [Catalytic activity/Vol] 113 U/L 38 - 126 U/L [facility] ALT [Catalytic activity/Vol] 28 U/L 0 - 34 U/L [facility] Anion gap [Moles/Vol] -1 mmol/L Low 3 - 13 mmol/L [facility] AST [Catalytic activity/Vol] 49 U/L High 15 - 46 U/L [facility] Bilirubin [Mass/Vol] 0.6 mg/dL 0.2 - 1 .3 mg/dL [facility] Calcium [Mass/Vol] 8.4 mg/dL 8.4 - 10. 4 mg/dL [facility] Chloride [Moles/Vol] 110 mmol/L High 98 - 10 7 mmol/L [facility] CO2 [Moles/Vol] 28 mmol/L 22 - 30 mmol/L [facility] Creatinine [Mass/Vol] 1.22 mg/dL High 0.52 - 1.04 mg/dL [facility] GFR/1.73 sq M.predicted (S/P/Bld) [Vol rate/Area] 45.5 mL/min Low - PINF [facility] Glucose [Mass/Vol] 98 mg/dL 70 - 100 mg/dL [facility] Interpretation and review of laboratory results Abnormal [facility] Potassium [Moles/Vol] 3.8 mmol/L 3.5 - 5.1 mmol/L [facility] Protein [Mass/Vol] 4.9 g/dL Low 6.3 - 8.2 g/dL [facility] Sodium [Moles/Vol] 136 mmol/L 135 - 145 mmol/L [facility] Urea nitrogen [Mass/Vol] 20 mg/dL High 7 - 17 mg/dL [facility] Laboratory - Chemistry and C hemistry - challengeon 07-04-2024 Glucose [Mass/Vol] 104 mg/dL High 70 - 100 mg/dL [facility] Magnesium [Mass/Vol] 1.9 mg/dL 1.6 - 2 .3 mg/dL [facility] Ammonia (P) [Moles/Vol] 15 umol/L 9 - 30 umol/L [facility] MAGNESIUMon 07-04-2024 Magnesium [Mass/Vol] 1.9 mg/dL Normal 1.6-2.3 [facility] Comment on above: Performed By: #### L [id number] ####Claims Investigator: RUTH ANN BRAGG ([id number])[facility] ([facility])[address] [place] [address] No Panel Informationon 07-04 Interpretation and review of laboratory results Abnormal [facility] Interpretation and review of laboratory results Normal [facility] Interpretation and review of laboratory results Normal [facility] PHOSPHORUSon 07-04-2024 Phosphate [Mass/Vol] 3.6 mg/dL Normal 2.5-4.5 [facility] Comment on above: Performed By: #### L AB17, [id number], [id number] ####Claims Investigator: RUTH ANN BRAGG ([id number])[facility] [place] [address] Phosphate [Moles/Vol]on 06-09 Phosphate [Mass/Vol] 3.6 mg/dL 2.5 - 4 .5 mg/dL [facility] Progress Noteon 07-04-2024 Progress Note Normal [facility] 30on 07-03-2024 30 Normal [facility] 30 Normal [facility] [id number] 07-03-2024 [id number] Discussed with primary team attending Dr. Gutierrez today. Patient's condition improving. Patient planned for discharge to SNF. Since patient, family have clearly established goals, our team will sign off at this time. Pricilla Steinberg MD 07/03/24 8:53 PM Normal [facility] [id number] Normal [facility] [id number] Normal [facility] [id number] Normal [facility] [id number] Discharge med list transmitted to [facility] via [employer] per TCC request. [id number] was entered into [facility] for the SNF- FACILITY IS AWARE Normal [facility] [id number] Normal [facility] AMMONIAon 07-03-2024 Ammonia (P) [Moles/Vol] 18 umol/L Normal 9-30 [facility] Comment on above: Performed By: #### L AB47 ####Claims Investigator: RUTH ANN BRAGG ([id number])[facility] [place] [address] CALCIUM, IONIZEDon 4 CALCIUM IONIZED 4.50 mg/dL Normal 4.30-5.20 [facility] Comment on above: Performed By: #### L AB54 ####Claims Investigator: RUTH ANN BRAGG ([id number])[facility] ([facility])[address] [place] [address] PH, IONIZED CALCIUM 7.46 Normal 7.31-7.46 [facility] Comment on above: Performed By: #### L AB54 ####Claims Investigator: RUTH ANN BRAGG ([id number])[facility] [place] [address] CBC W Auto Differential pane l (Bld)on 07-03-2024 Basophils (Bld) [#/Vol] 0 10*3/uL 0.0 - 0.2 10*3/uL [facility] Basophils/100 WBC (Bld) 0.4 % 0.0 - 2.0 % [facility] Eosinophils (Bld) [#/Vol] 0.4 10*3/uL 0. 0 - 0.5 10*3/uL [facility] Eosinophils/100 WBC (Bld) 5.7 % 0.0 - 6.0 % [facility] Erythrocyte distribution width (RBC) [Ratio] 14.6 % 11.5 - 15.0 % [facility] Hematocrit (Bld) [Volume fraction] 23.3 % Low 35.0 - 47.0 % [facility] Hemoglobin (Bld) [Mass/Vol] 7.1 g/dL Low 11.7 - 16.0 g/dL [facility] Immature granulocytes (Bld) [#/Vol] 0 10*3/uL NINF - 0.1 10*3/uL [facility] Immature granulocytes/100 WBC (Bld) 0.6 % 0.0 - 2.0 % [facility] Interpretation and review of laboratory results Abnormal [facility] th IPF 3 [facility] Lymphocytes (Bld) [#/Vol] 1.4 10*3/uL 1. 0 - 4.3 10*3/uL [facility] Lymphocytes/100 WBC (Bld) 19.8 % 15 .0 - 45.0 % [facility] MCH (RBC) [Entitic mass] 30.9 pg 26. 0 - 34.0 pg [facility] MCHC (RBC) [Mass/Vol] 30.5 % 30.5 - 36.0 % [facility] MCV (RBC) [Entitic vol] 101.3 fL High 77.0 - 99.0 fL [facility] Monocytes (Bld) [#/Vol] 1.3 10*3/uL High 0.0 - 0.9 10*3/uL [facility] Monocytes/100 WBC (Bld) 18.5 % High 5.0 - 13.0 % [facility] Neutrophils (Bld) [#/Vol] 3.8 10*3/uL 1. 8 - 7.5 10*3/uL [facility] Neutrophils/100 WBC (Bld) 55 % 38 .0 - 82.0 % [facility] Nucleated RBC/100 WBC (Bld) [Ratio] 0 % [facility] Platelet mean volume (Bld) [Entitic vol] 11.5 fL 9.0 - 12.7 fL [facility] Platelets (Bld) [#/Vol] 84 10*3/uL Low 140 - 440 10*3/uL [facility] RBC (Bld) [#/Vol] 2.3 10*6/uL Low 3.80 - 5.2 0 10*6/uL [facility] WBC (Bld) [#/Vol] 6.9 10*3/uL 3.6 - 10.7 10*3/uL [facility] CBC WITH AUTO DIFFERENTIALon 07-03-2024 Basophils (Bld) [#/Vol] 0.0 10*3/uL Normal 0.0-0.[address] [facility] Comment on above: Performed By: #### L [id number] ####Claims Investigator: RUTH ANN BRAGG ([id number])[facility] ([facility])[address] Basophils/100 WBC (Bld) 0.4 % Normal 0.0-2.0 [facility] Comment on above: Performed By: #### L [id number] ####Claims Investigator: RUTH ANN BRAGG ([id number])[facility] [place] ([facility])[address] Eosinophils (Bld) [#/Vol] 0.4 10*3/uL Normal 0.0-0.[address] [facility] Comment on above: Performed By: #### L [id number] ####Claims Investigator: RUTH ANN BRAGG ([id number])[facility] ([facility])[address] Eosinophils/100 WBC (Bld) 5.7 % Normal 0.0-6.[address] [facility] Comment on above: Performed By: #### L [id number] ####Claims Investigator: RUTH ANN BRAGG ([id number])[facility] [place] ([facility])[address] Erythrocyte distribution width (RBC) [Ratio] 14.6 % Normal 11.5-15.[address] [facility] Comment on above: Performed By: #### L [id number] ####Claims Investigator: RUTH ANN BRAGG ([id number])[facility] [place] ([facility])[address] Hematocrit (Bld) [Volume fraction] 23.3 % Low 35.0-47.[address] [facility] Comment on above: Performed By: #### L [id number] ####Claims Investigator: RUTH ANN BRAGG ([id number])[facility] ([facility])[address] Hemoglobin (Bld) [Mass/Vol] 7.1 g/dL Low 11.7-16.[address] [facility] Comment on above: Performed By: #### L [id number] ####Claims Investigator: RUTH ANN BRAGG ([id number])[facility] [place] ([facility])[address] IMMATURE GRANS % 0.6 % Normal 0.0-2.0 [facility] Comment on above: Performed By: #### L [id number] ####Claims Investigator: RUTH ANN BRAGG ([id number])[facility])[address] IMMATURE GRANS ABSOLUTE 0.0 10*3/uL Normal <0.[address] [facility] Comment on above: Performed By: #### L [id number] ####Claims Investigator: RUTH ANN BRAGG ([id number])[facility] ([facility])[address] [place] [address] IPF [address] [facility] Comment on above: Performed By: #### L [id number] ####Claims Investigator: RUTH ANN BRAGG ([id number])[facility] ([facility])[address] Lymphocytes (Bld) [#/Vol] 1.4 10*3/uL Normal 1.0-4.[address] [facility] Comment on above: Performed By: #### L [id number] ####Claims Investigator: RUTH ANN BRAGG ([id number])[facility] ([facility])[address] Lymphocytes/100 WBC (Bld) 19.8 % Normal 15.0-45.[address] [facility] Comment on above: Performed By: #### L [id number] ####Claims Investigator: RUTH ANN BRAGG ([id number])[facility] ([facility])[address] MCH (RBC) [Entitic mass] 30.9 pg Normal 26.0-34.[address] [facility] Comment on above: Performed By: #### L [id number] ####Claims Investigator: RUTH ANN BRAGG ([id number])[facility] ([facility])[address] MCHC 30.5 % Normal 30.5-36.[address] [facility] Comment on above: Performed By: #### L [id number] ####Claims Investigator: RUTH ANN HERRONSHELTON ([id number])[facility] ([facility])[address] [place] [address] MCV (RBC) [Entitic vol] 101.3 fL High 77.0-99.0 S [facility] Comment on above: Performed By: #### L [id number] ####Claims Investigator: RUTH ANN BRAGG ([id number])[facility] [place] ([facility])[address] [place] [address] Monocytes (Bld) [#/Vol] 1.3 10*3/uL High 0.0-0.[address] [facility] Comment on above: Performed By: #### L [id number] ####Claims Investigator: RUTH ANN BRAGG ([id number])[facility] [place] ([facility])[address] [place] [address] Monocytes/100 WBC (Bld) 18.5 % High 5.0-13.0 [facility] Comment on above: Performed By: #### L [id number] ####Claims Investigator: RUTH ANN BRAGG ([id number])[facility] ([facility])[address] [place] [address] NEUTROPHILS ABSOLUTE 3.8 10*3/uL Normal 1.8-7.5 [facility] Comment on above: Performed By: #### L [id number] ####Claims Investigator: RUTH ANN BRAGG ([id number])[facility]ERY[facility]ARGARET[facility] ([facility])[address] Neutrophils/100 WBC (Bld) 55.0 % Normal 38.0-82.0 [facility] Comment on above: Performed By: #### L [id number] ####Claims Investigator: RUTH ANN BRAGG ([id number])[facility] [place] ([facility])[address] NRBC 0.0 /100 WBCs Normal 0.0-2.0 [facility] Comment on above: Performed By: #### L [id number] ####Claims Investigator: RUTH ANN BRAGG ([id number])[facility] ([facility])[address] Platelet mean volume (Bld) [Entitic vol] 11.5 fL Normal 9.0-12.7 [facility] Comment on above: Performed By: #### L [id number] ####Claims Investigator: RUTH ANN BRAGG ([id number])[facility] [place] ([facility])[address] [place] [address] [place] Platelets (Bld) [#/Vol] 84 10*3/uL Low 140-440 [facility] Comment on above: Performed By: #### L [id number] ####Claims Investigator: RUTH ANN BRAGG ([id number])[facility] [place] ([facility])[address] [place] [address] [place] RBC (Bld) [#/Vol] 2.30 10*6/uL Low 3.80-5.[address] [facility] Comment on above: Performed By: #### L [id number] ####Claims Investigator: RUTH ANN BRAGG ([id number])[facility] [place] ([facility])[address] [place] [address] [place] WBC (Bld) [#/Vol] 6.9 10*3/uL Normal 3.6-10.7 [facility] Comment on above: Performed By: #### L [id number] ####Claims Investigator: RUTH ANN BRAGG ([id number])[facility] ([facility])[address] COMPREHENSIVE METABOLIC PANE Smith 07-03-2024 Albumin [Mass/Vol] 2.1 g/dL Low 3.5-5.0 [facility] Comment on above: Performed By: #### L AB17, [id number], ZYU756 ####Claims Investigator: RUTH ANN BRAGG ([id number])[facility] [place] ([facility])[address] ALP [Catalytic activity/Vol] 87 U/L Normal 38-126 [facility] Comment on above: Performed By: #### L AB17, BSD055, [id number] ####Claims Investigator: RUTH ANN BRAGG ([id number])[facility]ERY[facility] ([facility])[address] ALT [Catalytic activity/Vol] 27 U/L Normal 0-34 [facility] Comment on above: Performed By: #### L AB17, KVR769, YXX933 ####Claims Investigator: RUTH ANN BRAGG ([id number])[facility] [place] ([facility])[address] Anion gap [Moles/Vol] -1 mmol/L Low 3-13 [facility] Comment on above: Performed By: #### L AB17, [id number], [id number] ####Claims Investigator: RUTH ANN BRAGG ([id number])[facility] [place] ([facility])[address] AST [Catalytic activity/Vol] 45 U/L Normal 15-46 [facility] Comment on above: Performed By: #### L AB17, UWP458, NAA593 ####Claims Investigator: RUTH ANN BRAGG ([id number])[facility] ([facility])[address] [place] [address] [place] Bilirubin [Mass/Vol] 0.6 mg/dL Normal 0.2-1.3 [facility] Comment on above: Performed By: #### L AB17, BHL484, BMK319 ####Claims Investigator: RUTH ANN BRAGG ([id number])[facility] [place] ([facility])[address] Calcium [Mass/Vol] 7.9 mg/dL Low 8.4-10.4 [facility] Comment on above: Performed By: #### L AB17, NSI938, KRL599 ####Claims Investigator: RUTH ANN BRAGG ([id number])[facility] [place] ([facility])[address] Chloride [Moles/Vol] 111 mmol/L High 98-107 [facility] Comment on above: Performed By: #### L AB17, DMY238, AWV806 ####Claims Investigator: RUTH ANN BRAGG ([id number])[facility] [place] ([facility])[address] CO2 [Moles/Vol] 26 mmol/L Normal 22-30 [facility] Comment on above: Performed By: #### L AB17, AHM243, BYE674 ####Claims Investigator: RUTH ANN BRAGG ([id number])[facility] [place] ([facility])[address] Creatinine [Mass/Vol] 1.14 mg/dL High 0.52-1.04 [facility] Comment on above: Performed By: #### L AB17, OLL593, YHY149 ####Claims Investigator: RUTH ANN BRAGG ([id number])[facility] [place] ([facility])[address] [place] [address] [place] GLOMERULAR FILTRATION RATE ML/MIN/1.73 SQ M.PREDICTED 49.4 mL/min/1.73m*2 Low >60.0 [facility] Comment on above: Result Comment: Calc ulation based on the Chronic Kidney Disease Epidemiology Collaboration (CKD-EPI) equation refit without adjustment for race Performed By: #### L AB17, [id number], CVB915 ####Claims Investigator: RUTH ANN YEMI ([id number])[facility] ([facility])[address] Glucose [Mass/Vol] 106 mg/dL High 70-100 [facility] Comment on above: Performed By: #### L AB17, ZHU449, SUK027 ####Claims Investigator: RUTH ANN OBREGONWILTON ([id number])[facility] ([facility])[address] Potassium [Moles/Vol] 3.9 mmol/L Normal 3.5-5.1 [facility] Comment on above: Performed By: #### L AB17, DVQ499, SJQ320 ####Claims Investigator: RUTH ANN YEMI ([id number])[facility] ([facility])[address] Protein [Mass/Vol] 4.6 g/dL Low 6.3-8.2 [facility] Comment on above: Performed By: #### L AB17, XCH676, DML792 ####Claims Investigator: RUTH ANN OBREGONROBERTASHELTON ([id number])[facility] ([facility])[address] Sodium [Moles/Vol] 136 mmol/L Normal 135-145 [facility] Comment on above: Performed By: #### L AB17, DEB574, ONY179 ####Claims Investigator: RUTH ANN OBREGONWILTON ([id number])[facility] ([facility])[address] [place] [address] [place] Urea nitrogen [Mass/Vol] 25 mg/dL High 7-17 [facility] Comment on above: Performed By: #### L AB17, [id number], FCB743 ####Claims Investigator: RUTH ANN OBREGONWILTON ([id number])[facility] ([facility])[address] Calcium.ionized [Moles/Vol]o n 07-03-2024 Calcium.ionized (Bld) [Moles/Vol] 4.5 mg/dL 4.30 - 5.20 mg/dL [facility] Interpretation and review of laboratory results Normal [facility] PH, IONIZED CALCIUM 7.46 7.31 - 7.46 [facility] Comprehensive metabolic 1998 panelon 07-03-2024 Albumin [Mass/Vol] 2.1 g/dL Low 3.5 - 5.0 g/dL [facility] ALP [Catalytic activity/Vol] 87 U/L 38 - 126 U/L [facility] ALT [Catalytic activity/Vol] 27 U/L 0 - 34 U/L [facility] Anion gap [Moles/Vol] -1 mmol/L Low 3 - 13 mmol/L [facility] AST [Catalytic activity/Vol] 45 U/L 15 - 46 U/L [facility] Bilirubin [Mass/Vol] 0.6 mg/dL 0.2 - 1 .3 mg/dL [facility] Calcium [Mass/Vol] 7.9 mg/dL Low 8.4 - 10. 4 mg/dL [facility] Chloride [Moles/Vol] 111 mmol/L High 98 - 10 7 mmol/L [facility] CO2 [Moles/Vol] 26 mmol/L 22 - 30 mmol/L [facility] Creatinine [Mass/Vol] 1.14 mg/dL High 0.52 - 1.04 mg/dL [facility] GFR/1.73 sq M.predicted (S/P/Bld) [Vol rate/Area] 49.4 mL/min Low - PINF [facility] Glucose [Mass/Vol] 106 mg/dL High 70 - 100 mg/dL [facility] Interpretation and review of laboratory results Abnormal [facility] Potassium [Moles/Vol] 3.9 mmol/L 3.5 - 5.1 mmol/L [facility] Protein [Mass/Vol] 4.6 g/dL Low 6.3 - 8.2 g/dL [facility] Sodium [Moles/Vol] 136 mmol/L 135 - 145 mmol/L [facility] Urea nitrogen [Mass/Vol] 25 mg/dL High 7 - 17 mg/dL [facility] Laboratory - Chemistry and C hemistry - challengeon 07-03-2024 Glucose [Mass/Vol] 205 mg/dL High 70 - 100 mg/dL [facility] Glucose [Mass/Vol] 210 mg/dL High 70 - 100 mg/dL [facility] Glucose [Mass/Vol] 177 mg/dL High 70 - 100 mg/dL [facility] Glucose [Mass/Vol] 173 mg/dL High 70 - 100 mg/dL [facility] Glucose [Mass/Vol] 105 mg/dL High 70 - 100 mg/dL [facility] Magnesium [Mass/Vol] 1.9 mg/dL 1.6 - 2 .3 mg/dL [facility] Ammonia (P) [Moles/Vol] 18 umol/L 9 - 30 umol/L [facility] MAGNESIUMon 07-03-2024 Magnesium [Mass/Vol] 1.9 mg/dL Normal 1.6-2.3 [facility] Comment on above: Performed By: #### L AB17, [id number], [id number] ####Claims Investigator: RUTH ANN BRAGG ([id number])[facility] ([facility])[address] [place] [address] No Panel Informationon 07-03 Interpretation and review of laboratory results Abnormal [facility] Interpretation and review of laboratory results Abnormal [facility] Interpretation and review of laboratory results Abnormal [facility] Interpretation and review of laboratory results Abnormal [facility] Interpretation and review of laboratory results Abnormal [facility] Interpretation and review of laboratory results Normal [facility] Interpretation and review of laboratory results Normal [facility] Nursing Noteon 07-03-2024 Nursing Note Report called to [facility]. Pt transport is scheduled for 2:30pm. Normal [facility] PHOSPHORUSon 07-03-2024 Phosphate [Mass/Vol] 3.0 mg/dL Normal 2.5-4.5 [facility] Comment on above: Performed By: #### L AB17, GJN620, [id number] ####Claims Investigator: RUHT ANN BRAGG ([id number])[facility] ([facility])[address] [place] [address] Phosphate [Moles/Vol]on 06-09 Phosphate [Mass/Vol] 3 mg/dL 2.5 - 4 .5 mg/dL [facility] Progress Noteon 07-03-2024 Progress Note Normal [facility] Normal [facility] Progress Note Normal [facility] 30on 07-02-2024 30 Normal [facility] [id number] 07-02-2024 [id number] Normal [facility] [id number] Normal [facility] [id number] Sent therapy notes to [facility] via [facility] per TCC request. Await review and response regarding ability to accept. TCC notified. Normal [facility] [id number] Normal [facility] AMMONIAon 07-02-2024 Ammonia (P) [Moles/Vol] 14 umol/L Normal 9-30 [facility] Comment on above: Performed By: #### L AB47 ####Claims Investigator: RUTH ANN BRAGG ([id number])[facility] ([facility])[address] [place] [address] CALCIUM, IONIZEDon 4 CALCIUM IONIZED 4.30 mg/dL Normal 4.30-5.20 [facility] Comment on above: Performed By: #### L AB54 ####Claims Investigator: RUTH ANN BRAGG ([id number])[facility] ([facility])[address] [place] [address] PH, IONIZED CALCIUM 7.56 High 7.31-7.46 [facility] Comment on above: Performed By: #### L AB54 ####Claims Investigator: RUTH ANN BRAGG ([id number])[facility] ([facility])[address] [place] [address] CBC W Auto Differential pane l (Bld)on 07-02-2024 Basophils (Bld) [#/Vol] 0 10*3/uL 0.0 - 0.2 10*3/uL [facility] Basophils/100 WBC (Bld) 0.4 % 0.0 - 2.0 % [facility] Eosinophils (Bld) [#/Vol] 0.5 10*3/uL 0. 0 - 0.5 10*3/uL [facility] Eosinophils/100 WBC (Bld) 6.3 % High 0.0 - 6.0 % [facility] Erythrocyte distribution width (RBC) [Ratio] 14.6 % 11.5 - 15.0 % [facility] Hematocrit (Bld) [Volume fraction] 24.2 % Low 35.0 - 47.0 % [facility] Hemoglobin (Bld) [Mass/Vol] 7.6 g/dL Low 11.7 - 16.0 g/dL [facility] Immature granulocytes (Bld) [#/Vol] 0 10*3/uL NINF - 0.1 10*3/uL [facility] Immature granulocytes/100 WBC (Bld) 0.5 % 0.0 - 2.0 % [facility] Interpretation and review of laboratory results Abnormal [facility] th IPF 4 [facility] Lymphocytes (Bld) [#/Vol] 1.2 10*3/uL 1. 0 - 4.3 10*3/uL [facility] Lymphocytes/100 WBC (Bld) 16.7 % 15 .0 - 45.0 % [facility] MCH (RBC) [Entitic mass] 31.5 pg 26. 0 - 34.0 pg [facility] MCHC (RBC) [Mass/Vol] 31.4 % 30.5 - 36.0 % [facility] MCV (RBC) [Entitic vol] 100.4 fL High 77.0 - 99.0 fL [facility] Monocytes (Bld) [#/Vol] 1.3 10*3/uL High 0.0 - 0.9 10*3/uL [facility] Monocytes/100 WBC (Bld) 17.3 % High 5.0 - 13.0 % [facility] Neutrophils (Bld) [#/Vol] 4.3 10*3/uL 1. 8 - 7.5 10*3/uL [facility] Neutrophils/100 WBC (Bld) 58.8 % 38 .0 - 82.0 % [facility] Nucleated RBC/100 WBC (Bld) [Ratio] 0 % [facility] Platelet mean volume (Bld) [Entitic vol] 11.3 fL 9.0 - 12.7 fL [facility] Platelets (Bld) [#/Vol] 84 10*3/uL Low 140 - 440 10*3/uL [facility] RBC (Bld) [#/Vol] 2.41 10*6/uL Low 3.80 - 5.2 0 10*6/uL [facility] WBC (Bld) [#/Vol] 7.3 10*3/uL 3.6 - 10.7 10*3/uL [facility] CBC WITH AUTO DIFFERENTIALon 07-02-2024 Basophils (Bld) [#/Vol] 0.0 10*3/uL Normal 0.0-0.[address] [facility] Comment on above: Performed By: #### L [id number] ####Claims Investigator: RUTH ANN BRAGG ([id number])[facility] ([facility] [place] [address] Basophils/100 WBC (Bld) 0.4 % Normal 0.0-2.0 S [facility] Comment on above: Performed By: #### L [id number] ####Claims Investigator: RUTH ANN BRAGG ([id number])[facility] (SBHL[facility])[address] [place] [address] Eosinophils (Bld) [#/Vol] 0.5 10*3/uL Normal 0.0-0.[address] [facility] Comment on above: Performed By: #### L [id number] ####Claims Investigator: RUTH ANN BRAGG ([id number])[facility] ([facility])[address] [place] [address] Eosinophils/100 WBC (Bld) 6.3 % High 0.0-6.[address] [facility] Comment on above: Performed By: #### L [id number] ####Claims Investigator: RUTH ANN BRAGG ([id number])[facility] (SB[facility])[address] Erythrocyte distribution width (RBC) [Ratio] 14.6 % Normal 11.5-15.[address] [facility] Comment on above: Performed By: #### L [id number] ####Claims Investigator: RUTH ANN BRAGG ([phone])[facility] ([facility])[address] Hematocrit (Bld) [Volume fraction] 24.2 % Low 35.0-47.[address] [facility] Comment on above: Performed By: #### L [id number] ####Claims Investigator: RUTH ANN BRAGG ([id number])[facility] [place] (SBHLAB)[address] Hemoglobin (Bld) [Mass/Vol] 7.6 g/dL Low 11.7-16.[address] [facility] Comment on above: Performed By: #### L [id number] ####Claims Investigator: RUTH ANN BRAGG ([phone])[facility] IMMATURE GRANS % 0.5 % Normal 0.0-2.0 [facility] Comment on above: Performed By: #### L [id number] ####Claims Investigator: RUTH ANN BRAGG ([phone])[facility] [place] ([facility])[address] IMMATURE GRANS ABSOLUTE 0.0 10*3/uL Normal <0.[address] [facility] Comment on above: Performed By: #### L [id number] ####Claims Investigator: RUTH ANN BRAGG ([id number])[facility] (HL[facility])[address] IPF [address] [facility] Comment on above: Performed By: #### L [id number] ####Claims Investigator: RUTH ANN BRAGG ([id number])[facility] (SBHLAB)[address] [place] [address] [place] Lymphocytes (Bld) [#/Vol] 1.2 10*3/uL Normal 1.0-4.[address] [facility] Comment on above: Performed By: #### L [id number] ####Claims Investigator: RUTH ANN BRAGG ([id number])[facility] (SB[facility])[address] [place] [address] [place] Lymphocytes/100 WBC (Bld) 16.7 % Normal 15.0-45.[address] [facility] Comment on above: Performed By: #### L [id number] ####Claims Investigator: RUTH ANN BRAGG ([phone])[facility] (SBHLAB)[address] MCH (RBC) [Entitic mass] 31.5 pg Normal 26.0-34.[address] [facility] Comment on above: Performed By: #### L [id number] ####Claims Investigator: RUTH ANN HERRONSHELTON ([id number])[facility] [place] (SB[facility])[address] MCHC 31.4 % Normal 30.5-36.[address] [facility] Comment on above: Performed By: #### L [id number] ####Claims Investigator: RUTH ANN HERORNSHELTON ([phone])[facility] [place] (SBHLAB)[address] MCV (RBC) [Entitic vol] 100.4 fL High 77.0-99.0 S [facility] Comment on above: Performed By: #### L [id number] ####Claims Investigator: RUTH ANN BRAGG ([phone])[facility] [place] (SBHLAB)[address] Monocytes (Bld) [#/Vol] 1.3 10*3/uL High 0.0-0.[address] [facility] Comment on above: Performed By: #### L [id number] ####Claims Investigator: RUTH ANN BRAGG ([id number])[facility] (SBHLAB)[address] Monocytes/100 WBC (Bld) 17.3 % High 5.0-13.0 S [facility] Comment on above: Performed By: #### L [id number] ####Claims Investigator: RUTH ANN BRAGG ([phone])[facility] [place] (SBHLAB)[address] NEUTROPHILS ABSOLUTE 4.3 10*3/uL Normal 1.8-7.5 [facility] Comment on above: Performed By: #### L [id number] ####Claims Investigator: RUTH ANN BRAGG ([id number])[facility] (SBHLAB)[address] Neutrophils/100 WBC (Bld) 58.8 % Normal 38.0-82.0 [facility] Comment on above: Performed By: #### L [id number] ####Claims Investigator: RUTH ANN BRAGG ([id number])[facility] (SBHLAB)[address] NRBC 0.0 /100 WBCs Normal 0.0-2.0 [facility] Comment on above: Performed By: #### L [id number] ####Claims Investigator: RUTH ANN BRAGG ([id number])[facility] [place] (SBHLAB)[address] Platelet mean volume (Bld) [Entitic vol] 11.3 fL Normal 9.0-12.7 [facility] Comment on above: Performed By: #### L [id number] ####Claims Investigator: RUTH ANN BRAGG ([id number])[facility] (SBHLAB)[address] [place] [address] [place] Platelets (Bld) [#/Vol] 84 10*3/uL Low 140-440 [facility] Comment on above: Performed By: #### L [id number] ####Claims Investigator: RUTH ANN BRAGG ([id number])[facility] [place] (SBHLAB)[address] [place] [address] [place] RBC (Bld) [#/Vol] 2.41 10*6/uL Low 3.80-5.20 [facility] Comment on above: Performed By: #### L [id number] ####Claims Investigator: RUTH ANN BRAGG ([id number])[facility] [place] (SBHLAB)[address] [place] [address] [place] WBC (Bld) [#/Vol] 7.3 10*3/uL Normal 3.6-10.7 [facility] Comment on above: Performed By: #### L [id number] ####Claims Investigator: RUTH ANN BRAGG ([id number])[facility] [place] (SBHLAB)[address] COMPREHENSIVE METABOLIC PANE Smith 07-02-2024 Albumin [Mass/Vol] 2.4 g/dL Low 3.5-5.0 [facility] Comment on above: Performed By: #### L AB17, [id number], [id number] ####Claims Investigator: RUTH ANN BRAGG ([phone])[facility] [place] (SBHLAB)[address] ALP [Catalytic activity/Vol] 89 U/L Normal 38-126 [facility] Comment on above: Performed By: #### L AB17, [id number], [id number] ####Claims Investigator: RUTH ANN BRAGG ([id number])[facility] [place] (SBHLAB)[address] ALT [Catalytic activity/Vol] 29 U/L Normal 0-34 [facility] Comment on above: Performed By: #### L AB17, [id number], [id number] ####Claims Investigator: RUTH ANN BRAGG ([id number])[facility] [place] (SBHLAB)[address] Anion gap [Moles/Vol] 0 mmol/L Low 3-13 [facility] Comment on above: Performed By: #### L AB17, FSF528, XVI585 ####Claims Investigator: RUTH ANN BRAGG ([id number])[facility] [place] (SBHLAB)[address] [place] [address] [place] AST [Catalytic activity/Vol] 50 U/L High 15-46 [facility] Comment on above: Performed By: #### L AB17, [id number], [id number] ####Claims Investigator: RUTH ANN BRAGG ([id number])[facility] [place] (SBHLAB)[address] Bilirubin [Mass/Vol] 0.8 mg/dL Normal 0.2-1.3 [facility] Comment on above: Performed By: #### L AB17, [id number], ZDZ772 ####Claims Investigator: RUTH ANN BRAGG ([id number])[facility] [place] (SBHLAB)[address] Calcium [Mass/Vol] 8.0 mg/dL Low 8.4-10.4 [facility] Comment on above: Performed By: #### L AB17, OBQ558, XTZ392 ####Claims Investigator: RUTH ANN BRAGG ([id number])[facility] ([facility])[address] Chloride [Moles/Vol] 110 mmol/L High 98-107 [facility] Comment on above: Performed By: #### L AB17, WRD698, SCL969 ####Claims Investigator: RUTH ANN BRAGG ([id number])[facility] [place] (SBHLAB)[address] CO2 [Moles/Vol] 25 mmol/L Normal 22-30 [facility] Comment on above: Performed By: #### L AB17, YJZ390, JOV366 ####Claims Investigator: RUTH ANN BRAGG ([id number])[facility] Creatinine [Mass/Vol] 1.11 mg/dL High 0.52-1.04 [facility] Comment on above: Performed By: #### L AB17, [id number], FKK165 ####Claims Investigator: RUTH ANN BRAGG ([id number])[facility] ([facility])[address] GLOMERULAR FILTRATION RATE ML/MIN/1.73 SQ M.PREDICTED 51.0 mL/min/1.73m*2 Low >60.0 [facility] Comment on above: Result Comment: Calc ulation based on the Chronic Kidney Disease Epidemiology Collaboration (CKD-EPI) equation refit without adjustment for race Performed By: #### L AB17, QFU746, EGU845 ####Claims Investigator: RUTH ANN BRAGG ([id number])[facility] (SBHLAB)[address] Glucose [Mass/Vol] 113 mg/dL High 70-100 [facility] Comment on above: Performed By: #### L AB17, WHB301, BZX796 ####Claims Investigator: RUTH ANN BRAGG ([phone])[facility] (SBHLAB)[address] Potassium [Moles/Vol] 3.9 mmol/L Normal 3.5-5.1 [facility] Comment on above: Performed By: #### L AB17, BNM254, XRO795 ####Claims Investigator: RUTH ANN BRAGG ([id number])[facility] ([facility] Protein [Mass/Vol] 5.0 g/dL Low 6.3-8.2 [facility] Comment on above: Performed By: #### L AB17, GQQ210, HAA967 ####Claims Investigator: RUTH ANN BRAGG ([id number])[facility] (HLAB)[address] Sodium [Moles/Vol] 135 mmol/L Normal 135-145 [facility] Comment on above: Performed By: #### L AB17, TFV334, WLJ932 ####Claims Investigator: RUTH ANN BRAGG ([id number])[facility] (SBHLAB)[address] [place] [address] [place] Urea nitrogen [Mass/Vol] 29 mg/dL High 7-17 [facility] Comment on above: Performed By: #### L AB17, COH182, AKG642 ####Claims Investigator: RUTH ANN BRAGG ([id number])[facility] (SBHLAB)[address] Calcium.ionized [Moles/Vol]o n 11-25-2024 Calcium.ionized (Bld) [Moles/Vol] 4.3 mg/dL 4.30 - 5.20 mg/dL [facility] Interpretation and review of laboratory results Abnormal [facility] PH, IONIZED CALCIUM 7.56 High 7.31 - 7.46 [facility] Comprehensive metabolic 1998 panelon 07-02-2024 Albumin [Mass/Vol] 2.4 g/dL Low 3.5 - 5.0 g/dL [facility] ALP [Catalytic activity/Vol] 89 U/L 38 - 126 U/L [facility] ALT [Catalytic activity/Vol] 29 U/L 0 - 34 U/L [facility] Anion gap [Moles/Vol] 0 mmol/L Low 3 - 13 mmol/L [facility] AST [Catalytic activity/Vol] 50 U/L High 15 - 46 U/L [facility] Bilirubin [Mass/Vol] 0.8 mg/dL 0.2 - 1 .3 mg/dL [facility] Calcium [Mass/Vol] 8 mg/dL Low 8.4 - 10. 4 mg/dL [facility] Chloride [Moles/Vol] 110 mmol/L High 98 - 10 7 mmol/L [facility] CO2 [Moles/Vol] 25 mmol/L 22 - 30 mmol/L [facility] Creatinine [Mass/Vol] 1.11 mg/dL High 0.52 - 1.04 mg/dL [facility] GFR/1.73 sq M.predicted (S/P/Bld) [Vol rate/Area] 51 mL/min Low - PINF [facility] Glucose [Mass/Vol] 113 mg/dL High 70 - 100 mg/dL [facility] Interpretation and review of laboratory results Abnormal [facility] Potassium [Moles/Vol] 3.9 mmol/L 3.5 - 5.1 mmol/L [facility] Protein [Mass/Vol] 5 g/dL Low 6.3 - 8.2 g/dL [facility] Sodium [Moles/Vol] 135 mmol/L 135 - 145 mmol/L [facility] Urea nitrogen [Mass/Vol] 29 mg/dL High 7 - 17 mg/dL [facility] Laboratory - Chemistry and C hemistry - challengeon 07-02-2024 Glucose [Mass/Vol] 179 mg/dL High 70 - 100 mg/dL [facility] Glucose [Mass/Vol] 219 mg/dL High 70 - 100 mg/dL [facility] Glucose [Mass/Vol] 184 mg/dL High 70 - 100 mg/dL [facility] Glucose [Mass/Vol] 118 mg/dL High 70 - 100 mg/dL [facility] Ammonia (P) [Moles/Vol] 14 umol/L 9 - 30 umol/L [facility] Magnesium [Mass/Vol] 1.9 mg/dL 1.6 - 2 .3 mg/dL [facility] MAGNESIUMon 07-02-2024 Magnesium [Mass/Vol] 1.9 mg/dL Normal 1.6-2.3 [facility] Comment on above: Performed By: #### L AB17, [id number], [id number] ####Claims Investigator: RUTH ANN BRAGG ([id number])[facility] ([facility])[address] [place] [address] No Panel Informationon 07-02 Interpretation and review of laboratory results Abnormal [facility] Interpretation and review of laboratory results Abnormal [facility] Interpretation and review of laboratory results Abnormal [facility] Interpretation and review of laboratory results Abnormal [facility] Interpretation and review of laboratory results Normal [facility] Interpretation and review of laboratory results Normal [facility] Nursing Noteon 07-02-2024 Nursing Note Patient was informed that her catheter needed to be removed per Doctors order. Patient currently has family visiting and is eating dinner and would like to wait until later. Patient was asked to call the nurse when she was ready for it to be removed. Normal [facility] PHOSPHORUSon 07-02-2024 Phosphate [Mass/Vol] 2.9 mg/dL Normal 2.5-4.5 [facility] Comment on above: Performed By: #### L AB17, [id number], QBV099 ####Claims Investigator: RUTH ANN BRAGG ([id number])[facility] ([facility])[address] [place] [address] Phosphate [Moles/Vol]on 06-09 Phosphate [Mass/Vol] 2.9 mg/dL 2.5 - 4 .5 mg/dL [facility] Progress Noteon 07-02-2024 Progress Note Normal [facility] Progress Note Normal [facility] Progress Note Normal [facility] Progress Note Normal [facility] Progress Note [facility] AMMONIAon 07-01-2024 Ammonia (P) [Moles/Vol] 46 umol/L High 9-30 S [facility] Comment on above: Performed By: #### L AB47 ####Claims Investigator: RUTH ANN BRAGG ([id number])[facility] [place] (SBHLAB)[address] CALCIUM, IONIZEDon CALCIUM IONIZED 4.60 mg/dL Normal 4.30-5.20 [facility] Comment on above: Performed By: #### L AB54 ####Claims Investigator: RUTH ANN BRAGG ([phone])[facility] [place] (SBHLAB)[address] [place] [address] PH, IONIZED CALCIUM 7.46 Normal 7.31-7.46 [facility] Comment on above: Performed By: #### L AB54 ####Claims Investigator: RUTH ANN BRAGG ([id number])[facility] [place] (SB[facility]AB)[address] [place] [address] CBC W Auto Differential pane l (Bld)Ordered By: Kathya Dotson on 07-01-2024 Basophils (Bld) [#/Vol] 0 10*3/uL 0.0 - 0.2 10*3/uL [facility] Basophils/100 WBC (Bld) 0.4 % 0.0 - 2.0 % [facility] Eosinophils (Bld) [#/Vol] 0.6 10*3/uL High 0. 0 - 0.5 10*3/uL [facility] Eosinophils/100 WBC (Bld) 7.2 % High 0.0 - 6.0 % [facility] Erythrocyte distribution width (RBC) [Ratio] 14.9 % 11.5 - 15.0 % [facility] Hematocrit (Bld) [Volume fraction] 25.8 % Low 35.0 - 47.0 % [facility] Hemoglobin (Bld) [Mass/Vol] 7.9 g/dL Low 11.7 - 16.0 g/dL [facility] Immature granulocytes (Bld) [#/Vol] 0.1 10*3/uL High NINF - 0.1 10*3/uL [facility] Immature granulocytes/100 WBC (Bld) 0.8 % 0.0 - 2.0 % [facility] Interpretation and review of laboratory results Abnormal [facility] th Lymphocytes (Bld) [#/Vol] 1.4 10*3/uL 1. 0 - 4.3 10*3/uL [facility] Lymphocytes/100 WBC (Bld) 18.4 % 15 .0 - 45.0 % [facility] MCH (RBC) [Entitic mass] 31.5 pg 26. 0 - 34.0 pg [facility] MCHC (RBC) [Mass/Vol] 30.6 % 30.5 - 36.0 % [facility] MCV (RBC) [Entitic vol] 102.8 fL High 77.0 - 99.0 fL [facility] Monocytes (Bld) [#/Vol] 1.2 10*3/uL High 0.0 - 0.9 10*3/uL [facility] Monocytes/100 WBC (Bld) 15 % High 5.0 - 13.0 % [facility] Neutrophils (Bld) [#/Vol] 4.5 10*3/uL 1. 8 - 7.5 10*3/uL [facility] Neutrophils/100 WBC (Bld) 58.2 % 38 .0 - 82.0 % [facility] Nucleated RBC/100 WBC (Bld) [Ratio] 0 % [facility] Platelet mean volume (Bld) [Entitic vol] 11.4 fL 9.0 - 12.7 fL [facility] Platelets (Bld) [#/Vol] 86 10*3/uL Low 140 - 440 10*3/uL [facility] RBC (Bld) [#/Vol] 2.51 10*6/uL Low 3.80 - 5.2 0 10*6/uL [facility] WBC (Bld) [#/Vol] 7.7 10*3/uL 3.6 - 10.7 10*3/uL [facility] CBC WITH AUTO DIFFERENTIALon 07-01-2024 Basophils (Bld) [#/Vol] 0.0 10*3/uL Normal 0.0-0.[address] [facility] Comment on above: Performed By: #### L [id number] ####Claims Investigator: RUTH ANN HERRONSHELTON ([phone])[facility] (SBHLAB)[address] Basophils/100 WBC (Bld) 0.4 % Normal 0.0-2.0 [facility] Comment on above: Performed By: #### L [id number] ####Claims Investigator: RUTH ANN BRAGG ([phone])[facility] (SBHLAB)[address] Eosinophils (Bld) [#/Vol] 0.6 10*3/uL High 0.0-0.[address] [facility] Comment on above: Performed By: #### L [id number] ####Claims Investigator: RUTH ANN HERRONSHELTON ([phone])[facility] (SBHLAB)[address] Eosinophils/100 WBC (Bld) 7.2 % High 0.0-6.[address] [facility] Comment on above: Performed By: #### L [id number] ####Claims Investigator: RUTH ANN HERRONSHELTON ([id number])[facility] (SBHLAB)[address] Erythrocyte distribution width (RBC) [Ratio] 14.9 % Normal 11.5-15.0 [facility] Comment on above: Performed By: #### L [id number] ####Claims Investigator: RUTH ANN BRAGG ([phone])[facility] [place] ([facility])[address] Hematocrit (Bld) [Volume fraction] 25.8 % Low 35.0-47.[address] [facility] Comment on above: Performed By: #### L [id number] ####Claims Investigator: RUTH ANN BRAGG ([id number])[facility] [place] ([facility])[address] Hemoglobin (Bld) [Mass/Vol] 7.9 g/dL Low 11.7-16.[address] [facility] Comment on above: Performed By: #### L [id number] ####Claims Investigator: RUTH ANN BRAGG ([phone])[facility] [place] ([facility])[address] IMMATURE GRANS % 0.8 % Normal 0.0-2.0 [facility] Comment on above: Performed By: #### L [id number] ####Claims Investigator: RUTH ANN BRAGG ([id number])[facility] ([facility])[address] IMMATURE GRANS ABSOLUTE 0.1 10*3/uL High <0.[address] [facility] Comment on above: Performed By: #### L [id number] ####Claims Investigator: RUTH ANN BRAGG ([phone])[facility] (SB[facility]AB)[address] Lymphocytes (Bld) [#/Vol] 1.4 10*3/uL Normal 1.0-4.[address] [facility] Comment on above: Performed By: #### L [id number] ####Claims Investigator: RUTH ANN BRAGG ([id number])[facility] ([facility])[address] Lymphocytes/100 WBC (Bld) 18.4 % Normal 15.0-45.[address] [facility] Comment on above: Performed By: #### L [id number] ####Claims Investigator: RUTH ANN BRAGG ([id number])[facility] [place] ([facility])[address] MCH (RBC) [Entitic mass] 31.5 pg Normal 26.0-34.[address] [facility] Comment on above: Performed By: #### L [id number] ####Claims Investigator: RUTH ANN BRAGG ([id number])[facility] (SB[facility])[address] MCHC 30.6 % Normal 30.5-36.0 [facility] Comment on above: Performed By: #### L [id number] ####Claims Investigator: RUTH ANN OBREGONDavidSHELTON ([id number])[facility] (SB[facility])[address] MCV (RBC) [Entitic vol] 102.8 fL High 77.0-99.0 [facility] Comment on above: Performed By: #### L [id number] ####Claims Investigator: RUTH ANN YEMI ([id number])[facility] (SBHL[facility])[address] Monocytes (Bld) [#/Vol] 1.2 10*3/uL High 0.0-0.9 [facility] Comment on above: Performed By: #### L [id number] ####Claims Investigator: RUTH ANN OBREGONWILTON ([phone])[facility] (SBHLAB)[address] Monocytes/100 WBC (Bld) 15.0 % High 5.0-13.0 [facility] Comment on above: Performed By: #### L [id number] ####Claims Investigator: RUTH ANN HERRONSHELTON ([phone])[facility] (SBHL[facility])[address] NEUTROPHILS ABSOLUTE 4.5 10*3/uL Normal 1.8-7.5 [facility] Comment on above: Performed By: #### L [id number] ####Claims Investigator: RUTH ANN OBREGONWILTON ([id number])[facility] [place] ([facility])[address] Neutrophils/100 WBC (Bld) 58.2 % Normal 38.0-82.0 [facility] Comment on above: Performed By: #### L [id number] ####Claims Investigator: RUTH ANN HERRONSHELTON ([phone])[facility] [place] ([facility])[address] NRBC 0.0 /100 WBCs Normal 0.0-2.0 [facility] Comment on above: Performed By: #### L [id number] ####Claims Investigator: RUTH ANN BRAGG ([id number])[facility]FIELDRyan MONTGOMERYMARGARETN (SBHLAB)[address] Platelet mean volume (Bld) [Entitic vol] 11.4 fL Normal 9.0-12.7 [facility] Comment on above: Performed By: #### L [id number] ####Claims Investigator: RUTH ANN BRAGG ([phone])[facility]ERYL[facility] C[facility]ERN (SBHLAB)[address] Platelets (Bld) [#/Vol] 86 10*3/uL Low 140-440 [facility] Comment on above: Performed By: #### L [id number] ####Claims Investigator: RUTH ANN BRAGG ([id number])[facility] BARBMARGARETN (SBHLAB)[address] RBC (Bld) [#/Vol] 2.51 10*6/uL Low 3.80-5.[address] [facility] Comment on above: Performed By: #### L [id number] ####Claims Investigator: RUTH ANN BRAGG ([id number])[facility] [place] (SBHLAB)[address] [place] [address] WBC (Bld) [#/Vol] 7.7 10*3/uL Normal 3.6-10.7 [facility] Comment on above: Performed By: #### L [id number] ####Claims Investigator: RUTH ANN BRAGG ([id number])[facility] [place] ([facility])[address] COMPREHENSIVE METABOLIC PANE Smith 07-01-2024 Albumin [Mass/Vol] 2.3 g/dL Low 3.5-5.0 [facility] Comment on above: Performed By: #### L AB17, [id number], [id number] ####Claims Investigator: RUTH ANN BRAGG ([phone])MARYA SANDERSN (SBHLAB)[address] ALP [Catalytic activity/Vol] 93 U/L Normal 38-126 [facility] Comment on above: Performed By: #### L AB17, [id number], [id number] ####Claims Investigator: RUTH ANN BRAGG ([phone])[facility] (SBHLAB)[address] ALT [Catalytic activity/Vol] 28 U/L Normal 0-34 [facility] Comment on above: Performed By: #### L AB17, [id number], [id number] ####Claims Investigator: RUTH ANN BRAGG ([id number])[facility] [place] (SBHLAB)[address] Anion gap [Moles/Vol] 2 mmol/L Low 3-13 [facility] Comment on above: Performed By: #### L AB17, [id number], [id number] ####Claims Investigator: RUTH ANN BRAGG ([phone])[facility] [place] (SBHLAB)[address] AST [Catalytic activity/Vol] 51 U/L High 15-46 [facility] Comment on above: Performed By: #### L AB17, [id number], [id number] ####Claims Investigator: RUTH ANN BRAGG ([id number])MARYA PETERSON (SBHLAB)[address] Bilirubin [Mass/Vol] 0.7 mg/dL Normal 0.2-1.3 [facility] Comment on above: Performed By: #### L AB17, [id number], DBS558 ####Claims Investigator: RUTH ANN BRAGG ([id number])[facility] (SBHLAB)155 [place] [address] [place] Calcium [Mass/Vol] 8.1 mg/dL Low 8.4-10.4 [facility] Comment on above: Performed By: #### L AB17, DRC037, NUE325 ####Claims Investigator: RUTH ANN BRAGG ([id number])[facility] (SBHLAB)[address] [place] [address] [place] Chloride [Moles/Vol] 113 mmol/L High 98-107 [facility] Comment on above: Performed By: #### L AB17, XFU006, FRC590 ####Claims Investigator: RUTH ANN BRAGG ([phone])[facility] [place] (SB[facility])[address] [place] [address] [place] CO2 [Moles/Vol] 25 mmol/L Normal 22-30 [facility] Comment on above: Performed By: #### L AB17, WVP929, CEP213 ####Claims Investigator: RUTH ANN BRAGG ([phone])[facility] (SBHLAB)[address] Creatinine [Mass/Vol] 1.18 mg/dL High 0.52-1.04 [facility] Comment on above: Performed By: #### Jayy AB17, MWL170, [id number] ####Claims Investigator: RUTH ANN BRAGG ([phone])[facility] (SBHLAB)[address] [place] [address] [place] GLOMERULAR FILTRATION RATE ML/MIN/1.73 SQ M.PREDICTED 47.4 mL/min/1.73m*2 Low >60.0 [facility] Comment on above: Result Comment: Calc ulation based on the Chronic Kidney Disease Epidemiology Collaboration (CKD-EPI) equation refit without adjustment for race Performed By: #### L AB17, BDI458, BTN816 ####Claims Investigator: RUTH ANN BRAGG ([id number])[facility] [place] (SBHLAB)155 [place] [address] [place] Glucose [Mass/Vol] 143 mg/dL High 70-100 [facility] Comment on above: Performed By: #### L AB17, OVL518, HZP954 ####Claims Investigator: RUTH ANN BRAGG ([id number])[facility] (SBHLAB)[address] [place] [address] [place] Potassium [Moles/Vol] 3.7 mmol/L Normal 3.5-5.1 [facility] Comment on above: Performed By: #### L AB17, HLB301, QQG561 ####Claims Investigator: RUTH ANN BRAGG ([id number])[facility] (SBHLAB)[address] Protein [Mass/Vol] 5.0 g/dL Low 6.3-8.2 [facility] Comment on above: Performed By: #### L AB17, DTV962, OLY217 ####Claims Investigator: RUTH ANN BRAGG ([id number])[facility] (SBHLAB)[address] Sodium [Moles/Vol] 140 mmol/L Normal 135-145 [facility] Comment on above: Performed By: #### L AB17, [id number], [id number] ####Claims Investigator: RUTH ANN BRAGG ([phone])[facility] (SBHLAB)[address] Urea nitrogen [Mass/Vol] 37 mg/dL High 7-17 [facility] Comment on above: Performed By: #### L AB17, GVI362, [id number] ####Claims Investigator: RUTH ANN BRAGG ([phone])[facility] (SBHLAB)[address] Calcium.ionized [Moles/Vol]o n 07-01-2024 Calcium.ionized (Bld) [Moles/Vol] 4.6 mg/dL 4.30 - 5.20 mg/dL [facility] Interpretation and review of laboratory results Normal [facility] PH, IONIZED CALCIUM 7.46 7.31 - 7.46 [facility] Comprehensive metabolic 1998 panelon 07-01-2024 Albumin [Mass/Vol] 2.3 g/dL Low 3.5 - 5.0 g/dL [facility] ALP [Catalytic activity/Vol] 93 U/L 38 - 126 U/L [facility] ALT [Catalytic activity/Vol] 28 U/L 0 - 34 U/L [facility] Anion gap [Moles/Vol] 2 mmol/L Low 3 - 13 mmol/L [facility] AST [Catalytic activity/Vol] 51 U/L High 15 - 46 U/L [facility] Bilirubin [Mass/Vol] 0.7 mg/dL 0.2 - 1 .3 mg/dL [facility] Calcium [Mass/Vol] 8.1 mg/dL Low 8.4 - 10. 4 mg/dL [facility] Chloride [Moles/Vol] 113 mmol/L High 98 - 10 7 mmol/L [facility] CO2 [Moles/Vol] 25 mmol/L 22 - 30 mmol/L [facility] Creatinine [Mass/Vol] 1.18 mg/dL High 0.52 - 1.04 mg/dL [facility] GFR/1.73 sq M.predicted (S/P/Bld) [Vol rate/Area] 47.4 mL/min Low - PINF [facility] Glucose [Mass/Vol] 143 mg/dL High 70 - 100 mg/dL [facility] Interpretation and review of laboratory results Abnormal [facility] Potassium [Moles/Vol] 3.7 mmol/L 3.5 - 5.1 mmol/L [facility] Protein [Mass/Vol] 5 g/dL Low 6.3 - 8.2 g/dL [facility] Sodium [Moles/Vol] 140 mmol/L 135 - 145 mmol/L [facility] Urea nitrogen [Mass/Vol] 37 mg/dL High 7 - 17 mg/dL [facility] LEGIONELLA AND STREPTOCOCCUS URINE ANTIGENon 07-01-2024 LEGIONELLA AND STREPTOCOCCUS URINE ANTIGEN Normal [facility] System [facility] Comment on above: Performed By: #### L [id number] ####Claims Investigator: CHERYL STOREY ([id number])[facility] ([address] Laboratory - Chemistry and C hemistry - challengeon 07-01-2024 Glucose [Mass/Vol] 159 mg/dL High 70 - 100 mg/dL [facility] Glucose [Mass/Vol] 194 mg/dL High 70 - 100 mg/dL [facility] Glucose [Mass/Vol] 172 mg/dL High 70 - 100 mg/dL [facility] Glucose [Mass/Vol] 133 mg/dL High 70 - 100 mg/dL [facility] Magnesium [Mass/Vol] 2 mg/dL 1.6 - 2 .3 mg/dL [facility] Ammonia (P) [Moles/Vol] 46 umol/L High 9 - 30 umol/L [facility] MAGNESIUMon 07-01-2024 Magnesium [Mass/Vol] 2.0 mg/dL Normal 1.6-2.3 [facility] Comment on above: Performed By: #### L AB17, [id number], [id number] ####Claims Investigator: RUTH ANN BRAGG ([id number])[facility] ([facility])[address] No Panel Informationon 07-01 Interpretation and review of laboratory results Abnormal [facility] Interpretation and review of laboratory results Abnormal [facility] Interpretation and review of laboratory results Abnormal [facility] Interpretation and review of laboratory results Abnormal [facility] Interpretation and review of laboratory results Normal [facility] Interpretation and review of laboratory results Abnormal [facility] No Panel InformationOrdered By: Jeancarlos Johnson on 07-01-2024 Interpretation and review of laboratory results Normal [facility] Legionella pneumophila Ag Not detected No t Detected [facility] Streptococcus pneumoniae Ag Not detected Not Detected [facility] PHOSPHORUSon 07-01-2024 Phosphate [Mass/Vol] 2.7 mg/dL Normal 2.5-4.5 [facility] Comment on above: Performed By: #### L AB17, [id number], [id number] ####Claims Investigator: RUTH ANN BRAGG ([phone])[facility] ([facility])[address] [place] [address] Phosphate [Moles/Vol]on 06-09 Phosphate [Mass/Vol] 2.7 mg/dL 2.5 - 4 .5 mg/dL [facility] Progress Noteon 07-01-2024 Progress Note Normal [facility] RESPIRATORY PATHOGENS PANEL BY PCRon 07-01-2024 RESPIRATORY PATHOGENS PANEL BY PCR Normal [facility] Comment on above: Performed By: #### L [id number] ####Claims Investigator: CHERYL STOREY ([id number])[facility] ([facility])[address] [place] [address] Respiratory pathogens DNA an d RNA panel HUGO+non-probe (Nph)on 07-01-2024 Adenovirus Not detected Not Detected [facility] B. pertussis DNA HUGO+probe Ql (Unsp spec) Not detected Not Detected [facility] Bordetella parapertussis Not detected Not Detected [facility] Chlamydia pneumoniae Not detected Not Detected [facility] Coronavirus 229E Not detected Not Detected [facility] Coronavirus HKU1 Not detected Not Detected [facility] Coronavirus NL63 Not detected Not Detected [facility] Coronavirus OC43 Not detected Not Detected [facility] FLUAV RNA HUGO+non-probe Ql (Nph) Not detected Not Detected [facility] FLUBV RNA HUGO+non-probe Ql (Nph) Not detected Not Detected [facility] Human Metapneumovirus Not detected Not Detected [facility] Human Rhinovirus/Enterovirus Not detected Not Detected [facility] Interpretation and review of laboratory results Normal [facility] Mycoplasma pneumoniae Not detected Not Detected [facility] Parainfluenza 1 Not detected Not Detected [facility] Parainfluenza 2 Not detected Not Detected [facility] Parainfluenza 3 Not detected Not Detected [facility] Parainfluenza 4 Not detected Not Detected [facility] Respiratory Syncytial Virus Not detected Not Detected [facility] SARS-CoV-2 (COVID-19) RNA HUGO+non-probe Ql (Nph) Not detected Not Detected [facility] 30on 06-30-2024 30 Normal [facility] AMMONIAon 06-30-2024 Ammonia (P) [Mass/Vol] ug/dL Low 9-30 [facility] Comment on above: Performed By: #### L [id number] ####Claims Investigator: RUTH ANN BRAGG ([phone])[facility] (SBHLAB)[address] [place] [address] [place] CALCIUM, IONIZEDon 4 CALCIUM IONIZED 4.80 mg/dL Normal 4.30-5.20 [facility] Comment on above: Performed By: #### L AB54 ####Claims Investigator: RUTH ANN BRAGG ([id number])[facility] [place] (SBHLAB)[address] PH, IONIZED CALCIUM 7.46 Normal 7.31-7.46 [facility] System [facility] Comment on above: Performed By: #### L AB54 ####Claims Investigator: RUTH ANN BRAGG ([id number])[facility] (SBHLAB)[address] [place], [place] [id number] [facility] CBC W Auto Differential pane l (Bld)on 06-30-2024 Basophils (Bld) [#/Vol] 0 10*3/uL 0.0 - 0.2 10*3/uL [facility] Basophils/100 WBC (Bld) 0.3 % 0.0 - 2.0 % [facility] Eosinophils (Bld) [#/Vol] 0.4 10*3/uL 0. 0 - 0.5 10*3/uL [facility] Eosinophils/100 WBC (Bld) 6.1 % High 0.0 - 6.0 % [facility] Erythrocyte distribution width (RBC) [Ratio] 15 % 11.5 - 15.0 % [facility] Hematocrit (Bld) [Volume fraction] 24.7 % Low 35.0 - 47.0 % [facility] Hemoglobin (Bld) [Mass/Vol] 7.5 g/dL Low 11.7 - 16.0 g/dL [facility] Immature granulocytes (Bld) [#/Vol] 0.1 10*3/uL High NINF - 0.1 10*3/uL [facility] Immature granulocytes/100 WBC (Bld) 0.9 % 0.0 - 2.0 % [facility] Interpretation and review of laboratory results Abnormal [facility] IPF 4 [facility] Lymphocytes (Bld) [#/Vol] 1.1 10*3/uL 1. 0 - 4.3 10*3/uL [facility] Lymphocytes/100 WBC (Bld) 15.4 % 15 .0 - 45.0 % [facility] MCH (RBC) [Entitic mass] 31 pg 26. 0 - 34.0 pg [facility] MCHC (RBC) [Mass/Vol] 30.4 % Low 30.5 - 36.0 % [facility] MCV (RBC) [Entitic vol] 102.1 fL High 77.0 - 99.0 fL [facility] Monocytes (Bld) [#/Vol] 1.1 10*3/uL High 0.0 - 0.9 10*3/uL [facility] Monocytes/100 WBC (Bld) 15.4 % High 5.0 - 13.0 % [facility] Neutrophils (Bld) [#/Vol] 4.3 10*3/uL 1. 8 - 7.5 10*3/uL [facility] Neutrophils/100 WBC (Bld) 61.9 % 38 .0 - 82.0 % [facility] Nucleated RBC/100 WBC (Bld) [Ratio] 0 % [facility] Platelet mean volume (Bld) [Entitic vol] 11.8 fL 9.0 - 12.7 fL [facility] Platelets (Bld) [#/Vol] 74 10*3/uL Low 140 - 440 10*3/uL [facility] RBC (Bld) [#/Vol] 2.42 10*6/uL Low 3.80 - 5.2 0 10*6/uL [facility] WBC (Bld) [#/Vol] 6.9 10*3/uL 3.6 - 10.7 10*3/uL [facility] CBC WITH AUTO DIFFERENTIALon 06-30-2024 Basophils (Bld) [#/Vol] 0.0 10*3/uL Normal 0.0-0.[address] [facility] Comment on above: Performed By: #### L [id number] ####Claims Investigator: RUTH ANN BRAGG ([id number])[facility] ([facility])[address] [place] [address] Basophils/100 WBC (Bld) 0.3 % Normal 0.0-2.0 S [facility] Comment on above: Performed By: #### L [id number] ####Claims Investigator: RUTH ANN BRAGG ([phone])[facility] [place] (SBHLAB)[address] Eosinophils (Bld) [#/Vol] 0.4 10*3/uL Normal 0.0-0.[address] [facility] Comment on above: Performed By: #### L [id number] ####Claims Investigator: RUTH ANN BRAGG ([id number])[facility] [place] (SB[facility])[address] Eosinophils/100 WBC (Bld) 6.1 % High 0.0-6.[address] [facility] Comment on above: Performed By: #### L [id number] ####Claims Investigator: RUTH ANN BRAGG ([phone])[facility] [place] (SB[facility])[address] Erythrocyte distribution width (RBC) [Ratio] 15.0 % Normal 11.5-15.0 [facility] Comment on above: Performed By: #### L [id number] ####Claims Investigator: RUTH ANN BRAGG ([phone])[facility] [place] (SB[facility])[address] Hematocrit (Bld) [Volume fraction] 24.7 % Low 35.0-47.0 [facility] Comment on above: Performed By: #### L [id number] ####Claims Investigator: RUTH ANN BRAGG ([phone])[facility] [place] (SB[facility])[address] Hemoglobin (Bld) [Mass/Vol] 7.5 g/dL Low 11.7-16.[address] [facility] Comment on above: Performed By: #### L [id number] ####Claims Investigator: RUTH ANN BRAGG ([id number])[facility] [place] (SB[facility])[address] IMMATURE GRANS % 0.9 % Normal 0.0-2.0 [facility] Comment on above: Performed By: #### L [id number] ####Claims Investigator: RUTH ANN BRAGG ([id number])[facility] [place] ([facility])[address] IMMATURE GRANS ABSOLUTE 0.1 10*3/uL High <0.[address] [facility] Comment on above: Performed By: #### L [id number] ####Claims Investigator: RUTH ANN BRAGG ([id number])[facility] [place] ([facility])[address] IPF [address] [facility] Comment on above: Performed By: #### L [id number] ####Claims Investigator: RUTH ANN BRAGG ([id number])[facility] (SBHLAB)[address] Lymphocytes (Bld) [#/Vol] 1.1 10*3/uL Normal 1.0-4.[address] [facility] Comment on above: Performed By: #### L [id number] ####Claims Investigator: RUTH ANN BRAGG ([id number])[facility] (SBHLAB)[address] Lymphocytes/100 WBC (Bld) 15.4 % Normal 15.0-45.[address] [facility] Comment on above: Performed By: #### L [id number] ####Claims Investigator: RUTH ANN BRAGG ([phone])[facility] [place] (SBHLAB)[address] MCH (RBC) [Entitic mass] 31.0 pg Normal 26.0-34.[address] [facility] Comment on above: Performed By: #### L [id number] ####Claims Investigator: RUTH ANN BRAGG ([phone])[facility] (SBHLAB)[address] MCHC 30.4 % Low 30.5-36.[address] [facility] Comment on above: Performed By: #### L [id number] ####Claims Investigator: RUTH ANN BRAGG ([id number])[facility] (SBHLAB)[address] MCV (RBC) [Entitic vol] 102.1 fL High 77.0-99.0 S [facility] Comment on above: Performed By: #### L [id number] ####Claims Investigator: RUTH ANN BRAGG ([id number])[facility] [place] (SBHLAB)[address] [place] [address] [place] Monocytes (Bld) [#/Vol] 1.1 10*3/uL High 0.0-0.[address] [facility] Comment on above: Performed By: #### L [id number] ####Claims Investigator: RUTH ANN BRAGG ([phone])[facility] (SBHLAB)[address] Monocytes/100 WBC (Bld) 15.4 % High 5.0-13.0 S [facility] Comment on above: Performed By: #### L [id number] ####Claims Investigator: RUTH ANN BRAGG ([id number])[facility] [place] ([facility])[address] NEUTROPHILS ABSOLUTE 4.3 10*3/uL Normal 1.8-7.5 [facility] Comment on above: Performed By: #### L [id number] ####Claims Investigator: RUTH ANN BRAGG ([phone])[facility] [place] ([facility])[address] Neutrophils/100 WBC (Bld) 61.9 % Normal 38.0-82.[address] [facility] Comment on above: Performed By: #### L [id number] ####Claims Investigator: RUTH ANN BRAGG ([id number])[facility] [place] ([facility])[address] NRBC 0.0 /100 WBCs Normal 0.0-2.0 [facility] Comment on above: Performed By: #### L [id number] ####Claims Investigator: RUTH ANN BRAGG ([phone])[facility] [place] ([facility])[address] Platelet mean volume (Bld) [Entitic vol] 11.8 fL Normal 9.0-12.[address] [facility] Comment on above: Performed By: #### L [id number] ####Claims Investigator: RUTH ANN BRAGG ([id number])[facility] [place] ([facility])[address] [place] [address] [place] Platelets (Bld) [#/Vol] 74 10*3/uL Low 140-440 S [facility] Comment on above: Performed By: #### L [id number] ####Claims Investigator: RUTH ANN BRAGG ([id number])[facility] [place] (SBHLAB)[address] RBC (Bld) [#/Vol] 2.42 10*6/uL Low 3.80-5.20 [facility] Comment on above: Performed By: #### L [id number] ####Claims Investigator: RUTH ANN BRAGG ([id number])[facility] [place] ([facility])[address] WBC (Bld) [#/Vol] 6.9 10*3/uL Normal 3.6-10.7 [facility] Comment on above: Performed By: #### L [id number] ####Claims Investigator: RUTH ANN BRAGG ([id number])[facility] [place] ([facility])[address] COMPREHENSIVE METABOLIC PANE Smith 06-30-2024 Albumin [Mass/Vol] 2.3 g/dL Low 3.5-5.0 [facility] Comment on above: Performed By: #### Jayy AB17, [id number], [id number] ####Claims Investigator: RUTH ANN BRAGG ([phone])[facility] [place] ([facility])[address] ALP [Catalytic activity/Vol] 81 U/L Normal 38-126 [facility] Comment on above: Performed By: #### L AB17, [id number], [id number] ####Claims Investigator: RUTH ANN BRAGG ([phone])[facility] [place] ([facility])[address] ALT [Catalytic activity/Vol] 24 U/L Normal 0-[address] [facility] Comment on above: Performed By: #### L AB17, [id number], HIT858 ####Claims Investigator: RUTH ANN BRAGG ([id number])[facility] [place] ([facility])[address] Anion gap [Moles/Vol] 3 mmol/L Normal 3-13 [facility] Comment on above: Performed By: #### L AB17, KDE138, [id number] ####Claims Investigator: RUTH ANN BRAGG ([phone])[facility] [place] ([facility])[address] AST [Catalytic activity/Vol] 43 U/L Normal 15-46 [facility] Comment on above: Performed By: #### L AB17, AOW607, [id number] ####Claims Investigator: RUTH ANN BRAGG ([id number])[facility] (SBHL[facility])[address] Bilirubin [Mass/Vol] 0.8 mg/dL Normal 0.2-1.3 [facility] Comment on above: Performed By: #### L AB17, IFA727, [id number] ####Claims Investigator: RUTH ANN BRAGG ([id number])[facility] ([facility])[address] Calcium [Mass/Vol] 8.4 mg/dL Normal 8.4-10.4 [facility] Comment on above: Performed By: #### L AB17, [id number], [id number] ####Claims Investigator: RUTH ANN BRAGG ([phone])[facility] [place] ([facility])[address] Chloride [Moles/Vol] 117 mmol/L High 98-107 [facility] Comment on above: Performed By: #### L AB17, [id number], [id number] ####Claims Investigator: RUTH ANN BRAGG ([phone])[facility] [place] ([facility])[address] [place] [address] [place] CO2 [Moles/Vol] 23 mmol/L Normal 22-30 [facility] Comment on above: Performed By: #### L AB17, [id number], [id number] ####Claims Investigator: RUTH ANN BRAGG ([phone])[facility] [place] ([facility])[address] Creatinine [Mass/Vol] 1.15 mg/dL High 0.52-1.04 [facility] [facility] Comment on above: Performed By: #### L AB17, [id number], [id number] ####Claims Investigator: RUTH ANN BRAGG ([id number])[facility] ([facility])[address] GLOMERULAR FILTRATION RATE ML/MIN/1.73 SQ M.PREDICTED 48.9 mL/min/1.73m*2 Low >60.0 [facility] Comment on above: Result Comment: Calc ulation based on the Chronic Kidney Disease Epidemiology Collaboration (CKD-EPI) equation refit without adjustment for race Performed By: #### L AB17, [id number], [id number] ####Claims Investigator: RUTH ANN BRAGG ([id number])[facility] Glucose [Mass/Vol] 131 mg/dL High 70-100 [facility] Comment on above: Performed By: #### L AB17, [id number], [id number] ####Claims Investigator: RUTH ANN BRAGG ([id number])[facility] Potassium [Moles/Vol] 3.5 mmol/L Normal 3.5-5.1 [facility] Comment on above: Performed By: #### L AB17, [id number], [id number] ####Claims Investigator: RUTH ANN BRAGG ([phone])[facility] [place] [address] [place] Protein [Mass/Vol] 5.0 g/dL Low 6.3-8.2 [facility] Comment on above: Performed By: #### L AB17, [id number], [id number] ####Claims Investigator: RUTH ANN BRAGG ([id number])[facility] Sodium [Moles/Vol] 142 mmol/L Normal 135-145 [facility] Comment on above: Performed By: #### L AB17, [id number], [id number] ####Claims Investigator: RUTH ANN BRAGG ([id number])[facility] ([facility])[address] [place] [address] Urea nitrogen [Mass/Vol] 48 mg/dL High 02-21 [facility] Comment on above: Performed By: #### L AB17, [id number], [id number] ####Claims Investigator: RUTH ANN BRAGG ([id number])[facility] ([facility])[address] Calcium.ionized [Moles/Vol]o n 06-30-2024 Calcium.ionized (Bld) [Moles/Vol] 4.8 mg/dL 4.30 - 5.20 mg/dL [facility] Interpretation and review of laboratory results Normal [facility] PH, IONIZED CALCIUM 7.46 7.31 - 7.46 [facility] Comprehensive metabolic 1998 panelon 06-30-2024 Albumin [Mass/Vol] 2.3 g/dL Low 3.5 - 5.0 g/dL [facility] ALP [Catalytic activity/Vol] 81 U/L 38 - 126 U/L [facility] ALT [Catalytic activity/Vol] 24 U/L 0 - 34 U/L [facility] Anion gap [Moles/Vol] 3 mmol/L 3 - 13 mmol/L [facility] AST [Catalytic activity/Vol] 43 U/L 15 - 46 U/L [facility] Bilirubin [Mass/Vol] 0.8 mg/dL 0.2 - 1 .3 mg/dL [facility] Calcium [Mass/Vol] 8.4 mg/dL 8.4 - 10. 4 mg/dL [facility] Chloride [Moles/Vol] 117 mmol/L High 98 - 10 7 mmol/L [facility] CO2 [Moles/Vol] 23 mmol/L 22 - 30 mmol/L [facility] Creatinine [Mass/Vol] 1.15 mg/dL High 0.52 - 1.04 mg/dL [facility] GFR/1.73 sq M.predicted (S/P/Bld) [Vol rate/Area] 48.9 mL/min Low - PINF [facility] Glucose [Mass/Vol] 131 mg/dL High 70 - 100 mg/dL [facility] Interpretation and review of laboratory results Abnormal [facility] Potassium [Moles/Vol] 3.5 mmol/L 3.5 - 5.1 mmol/L [facility] Protein [Mass/Vol] 5 g/dL Low 6.3 - 8.2 g/dL [facility] Sodium [Moles/Vol] 142 mmol/L 135 - 145 mmol/L [facility] Urea nitrogen [Mass/Vol] 48 mg/dL High 7 - 17 mg/dL [facility] Laboratory - Chemistry and C hemistry - challengeon 06-30-2024 Glucose [Mass/Vol] 166 mg/dL High 70 - 100 mg/dL [facility] Glucose [Mass/Vol] 210 mg/dL High 70 - 100 mg/dL [facility] Glucose [Mass/Vol] 214 mg/dL High 70 - 100 mg/dL [facility] Glucose [Mass/Vol] 141 mg/dL High 70 - 100 mg/dL [facility] Magnesium [Mass/Vol] 2.1 mg/dL 1.6 - 2 .3 mg/dL [facility] Ammonia (P) [Moles/Vol] umol/L Low 9 - 30 umol/L [facility] MAGNESIUMon 06-30-2024 Magnesium [Mass/Vol] 2.1 mg/dL Normal 1.6-2.3 [facility] Comment on above: Performed By: #### L AB17, [id number], [id number] ####Claims Investigator: RUTH ANN BRAGG ([phone])[facility] ([facility])[address] [place] [address] No Panel Informationon 06-30 Interpretation and review of laboratory results Abnormal [facility] Interpretation and review of laboratory results Abnormal [facility] Interpretation and review of laboratory results Abnormal [facility] Interpretation and review of laboratory results Abnormal [facility] Interpretation and review of laboratory results Normal [facility] Interpretation and review of laboratory results Abnormal [facility] PHOSPHORUSon 06-30-2024 Phosphate [Mass/Vol] 3.1 mg/dL Normal 2.5-4.5 [facility] Comment on above: Performed By: #### L AB17, [id number], [id number] ####Claims Investigator: RUTH ANN BRAGG ([phone])[facility] ([facility])[address] [place] [address] Phosphate [Moles/Vol]on 06-09 Phosphate [Mass/Vol] 3.1 mg/dL 2.5 - 4 .5 mg/dL [facility] Progress Noteon 06-30-2024 Progress Note Normal [facility] 30on 06-29-[address] [facility] [id number] 06-29-2024 [id number] Normal [facility] AMMONIAon 06-29-2024 Ammonia (P) [Mass/Vol] ug/dL Low 9-30 [facility] Comment on above: Performed By: #### L [id number] ####Claims Investigator: RUTH ANN BRAGG ([id number])[facility] [place] ([facility])[address] [place] [address] CALCIUM, IONIZEDon CALCIUM IONIZED 4.80 mg/dL Normal 4.30-5.20 [facility] Comment on above: Performed By: #### L [id number] ####Claims Investigator: RUTH ANN BRAGG ([id number])[facility] [place] ([facility])[address] [place] [address] PH, IONIZED CALCIUM 7.49 High 7.31-7.46 [facility] Comment on above: Performed By: #### L AB54 ####Claims Investigator: RUTH ANN BRAGG ([id number])[facility] [place] ([facility] [place] [address] CBC W Auto Differential pane l (Bld)on 06-29-2024 Erythrocyte distribution width (RBC) [Ratio] 15.3 % High 11.5 - 15.0 % [facility] Hematocrit (Bld) [Volume fraction] 30 % Low 35.0 - 47.0 % [facility] Hemoglobin (Bld) [Mass/Vol] 9.3 g/dL Low 11.7 - 16.0 g/dL [facility] MCH (RBC) [Entitic mass] 31.4 pg 26. 0 - 34.0 pg [facility] MCHC (RBC) [Mass/Vol] 31 % 30.5 - 36.0 % [facility] MCV (RBC) [Entitic vol] 101.4 fL High 77.0 - 99.0 fL [facility] Platelet mean volume (Bld) [Entitic vol] 11.1 fL 9.0 - 12.7 fL [facility] Platelets (Bld) [#/Vol] 95 10*3/uL Low 140 - 440 10*3/uL [facility] RBC (Bld) [#/Vol] 2.96 10*6/uL Low 3.80 - 5.2 0 10*6/uL [facility] WBC (Bld) [#/Vol] 9.4 10*3/uL 3.6 - 10.7 10*3/uL [facility] CBC WITH AUTO DIFFERENTIALon 06-29-2024 Erythrocyte distribution width (RBC) [Ratio] 15.3 % High 11.5-15.0 [facility] Comment on above: Performed By: #### L [id number], [id number] ####Claims Investigator: RUTH ANN BRAGG ([id number])[facility] ([facility])[address] [place] [address] Hematocrit (Bld) [Volume fraction] 30.0 % Low 35.0-47.[address] [facility] Comment on above: Performed By: #### L [id number], [id number] ####Claims Investigator: RUTH ANN BRAGG ([id number])[facility] Hemoglobin (Bld) [Mass/Vol] 9.3 g/dL Low 11.7-16.[address] [facility] Comment on above: Performed By: #### L [id number], [id number] ####Claims Investigator: RUTH ANN BRAGG ([id number])[facility] ([facility])[address] MCH (RBC) [Entitic mass] 31.4 pg Normal 26.0-34.0 [facility] Comment on above: Performed By: #### L [id number], [id number] ####Claims Investigator: RUTH ANN BRAGG ([id number])[facility] ([facility])[address] MCHC 31.0 % Normal 30.5-36.0 [facility] Comment on above: Performed By: #### L [id number], [id number] ####Claims Investigator: RUTH ANN BRAGG ([id number])[facility] ([facility])[address] MCV (RBC) [Entitic vol] 101.4 fL High 77.0-99.0 [facility] Comment on above: Performed By: #### L [id number], [id number] ####Claims Investigator: RUTH ANN BRAGG ([id number])[facility] ([facility])[address] Platelet mean volume (Bld) [Entitic vol] 11.1 fL Normal 9.0-12.7 [facility] Comment on above: Performed By: #### L [id number], [id number] ####Claims Investigator: RUTH ANN BRAGG ([id number])[facility] ([facility])[address] Platelets (Bld) [#/Vol] 95 10*3/uL Low 140-440 [facility] Comment on above: Performed By: #### L [id number], [id number] ####Claims Investigator: RUTH ANN BRAGG ([id number])[facility] [place] ([facility])[address] RBC (Bld) [#/Vol] 2.96 10*6/uL Low 3.80-5.20 [facility] Comment on above: Performed By: #### L [id number], [id number] ####Claims Investigator: RUTH ANN BRAGG ([id number])[facility] [place] ([facility])[address] WBC (Bld) [#/Vol] 9.4 10*3/uL Normal 3.6-10.7 [facility] Comment on above: Performed By: #### L [id number], [id number] ####Claims Investigator: RUTH ANN BRAGG ([id number])[facility] ([facility])[address] COMPREHENSIVE METABOLIC PANE Smith 06-29-2024 Albumin [Mass/Vol] 2.9 g/dL Low 3.5-5.0 [facility] Comment on above: Performed By: #### L AB17, [id number], [id number] ####Claims Investigator: RUTH ANN BRAGG ([phone])[facility] [place] ([facility])[address] ALP [Catalytic activity/Vol] 123 U/L Normal 38-126 [facility] Comment on above: Performed By: #### L AB17, [id number], [id number] ####Claims Investigator: RUTH ANN BRAGG ([id number])[facility] [place] ([facility])[address] ALT [Catalytic activity/Vol] 26 U/L Normal 0-34 [facility] Comment on above: Performed By: #### L AB17, [id number], [id number] ####Claims Investigator: RUTH ANN BRAGG ([id number])[facility] [place] ([facility])[address] Anion gap [Moles/Vol] 4 mmol/L Normal 3-13 [facility] Comment on above: Performed By: #### L AB17, [id number], [id number] ####Claims Investigator: RUTH ANN BRAGG ([id number])[facility] [place] ([facility])[address] AST [Catalytic activity/Vol] 53 U/L High 15-[address] [facility] Comment on above: Performed By: #### L AB17, [id number], [id number] ####Claims Investigator: RUTH ANN BRAGG ([id number])[facility] ([facility])[address] [place] [address] [place] Bilirubin [Mass/Vol] 0.9 mg/dL Normal 0.2-1.3 [facility] Comment on above: Performed By: #### L AB17, [id number], [id number] ####Claims Investigator: RUTH ANN BRAGG ([id number])[facility] ([facility])[address] Calcium [Mass/Vol] 9.0 mg/dL Normal 8.4-10.4 [facility] Comment on above: Performed By: #### L AB17, [id number], [id number] ####Claims Investigator: RUTH ANN BRAGG ([phone])[facility] [place] ([facility])[address] Chloride [Moles/Vol] 120 mmol/L High 98-107 [facility] Comment on above: Performed By: #### L AB17, [id number], [id number] ####Claims Investigator: RUTH ANN BRAGG ([id number])[facility] [place] ([facility])[address] [place] [address] [place] CO2 [Moles/Vol] 21 mmol/L Low 22-30 [facility] Comment on above: Performed By: #### L AB17, [id number], [id number] ####Claims Investigator: RUTH ANN BRAGG ([phone])[facility] ([facility])[address] [place] [address] [place] Creatinine [Mass/Vol] 1.25 mg/dL High 0.52-1.04 [facility] Comment on above: Performed By: #### L AB17, MCL645, [id number] ####Claims Investigator: RUTH ANN BRAGG ([id number])[facility] ([facility])[address] [place] [address] [place] GLOMERULAR FILTRATION RATE ML/MIN/1.73 SQ M.PREDICTED 44.2 mL/min/1.73m*2 Low >60.0 [facility] Comment on above: Result Comment: Calc ulation based on the Chronic Kidney Disease Epidemiology Collaboration (CKD-EPI) equation refit without adjustment for race Performed By: #### L AB17, [id number], [id number] ####Claims Investigator: RUTH ANN BRAGG ([phone])[facility] ([facility])[address] Glucose [Mass/Vol] 190 mg/dL High 70-100 [facility] Comment on above: Performed By: #### L AB17, [id number], [id number] ####Claims Investigator: RUTH ANN BRAGG ([id number])[facility] ([facility])[address] Potassium [Moles/Vol] 3.7 mmol/L Normal 3.5-5.1 [facility] Comment on above: Performed By: #### Jayy AB17, [id number], [id number] ####Claims Investigator: RUTH ANN BRAGG ([id number])[facility] [place] ([facility])[address] Protein [Mass/Vol] 5.8 g/dL Low 6.3-8.2 [facility] Comment on above: Performed By: #### L AB17, [id number], [id number] ####Claims Investigator: RUTH ANN BRAGG ([id number])[facility] ([facility])[address] [place] [address] [place] Sodium [Moles/Vol] 145 mmol/L Normal 135-145 [facility] Comment on above: Performed By: #### L AB17, [id number], [id number] ####Claims Investigator: RUTH ANN BRAGG ([id number])[facility] [place] ([facility])[address] [place] [address] [place] Urea nitrogen [Mass/Vol] 51 mg/dL High 7-17 [facility] Comment on above: Performed By: #### L AB17, [id number], [id number] ####Claims Investigator: RUTH ANN BRAGG ([phone])[facility] ([facility])[address] [place] [address] [place] Calcium.ionized [Moles/Vol]O rdered By: Carola Hernandez on 06-29-2024 Calcium.ionized (Bld) [Moles/Vol] 4.8 mg/dL 4.30 - 5.20 mg/dL [facility] Interpretation and review of laboratory results Abnormal [facility] PH, IONIZED CALCIUM 7.49 High 7.31 - 7.46 [facility] Comprehensive metabolic 1998 panelon 06-29-2024 Albumin [Mass/Vol] 2.9 g/dL Low 3.5 - 5.0 g/dL [facility] ALP [Catalytic activity/Vol] 123 U/L 38 - 126 U/L [facility] ALT [Catalytic activity/Vol] 26 U/L 0 - 34 U/L [facility] Anion gap [Moles/Vol] 4 mmol/L 3 - 13 mmol/L [facility] AST [Catalytic activity/Vol] 53 U/L High 15 - 46 U/L [facility] Bilirubin [Mass/Vol] 0.9 mg/dL 0.2 - 1 .3 mg/dL [facility] Calcium [Mass/Vol] 9 mg/dL 8.4 - 10. 4 mg/dL [facility] Chloride [Moles/Vol] 120 mmol/L High 98 - 10 7 mmol/L [facility] CO2 [Moles/Vol] 21 mmol/L Low 22 - 30 mmol/L [facility] Creatinine [Mass/Vol] 1.25 mg/dL High 0.52 - 1.04 mg/dL [facility] GFR/1.73 sq M.predicted (S/P/Bld) [Vol rate/Area] 44.2 mL/min Low - PINF [facility] Glucose [Mass/Vol] 190 mg/dL High 70 - 100 mg/dL [facility] Potassium [Moles/Vol] 3.7 mmol/L 3.5 - 5.1 mmol/L [facility] Protein [Mass/Vol] 5.8 g/dL Low 6.3 - 8.2 g/dL [facility] Sodium [Moles/Vol] 145 mmol/L 135 - 145 mmol/L [facility] Urea nitrogen [Mass/Vol] 51 mg/dL High 7 - 17 mg/dL [facility] Laboratory - Chemistry and C hemistry - challengeon 06-29-2024 Glucose [Mass/Vol] 162 mg/dL High 70 - 100 mg/dL [facility] Glucose [Mass/Vol] 195 mg/dL High 70 - 100 mg/dL [facility] Glucose [Mass/Vol] 190 mg/dL High 70 - 100 mg/dL [facility] Glucose [Mass/Vol] 195 mg/dL High 70 - 100 mg/dL [facility] Magnesium [Mass/Vol] 2.2 mg/dL 1.6 - 2 .3 mg/dL [facility] Ammonia (P) [Moles/Vol] umol/L Low 9 - 30 umol/L [facility] Laboratory - Hematology and Cell countson 06-29-2024 Anisocytosis Ql (Bld) Slight Abnormal (none) [facility] Basophils (Bld) [#/Vol] 0.1 10*3/uL 0.0 - 0.2 10*3/uL [facility] Basophils/100 WBC (Bld) 1 % 0 - 2 % [facility] cells LM Ql (Bld) Slight Abnormal (none) [facility] Eosinophils (Bld) [#/Vol] 0.1 10*3/uL 0. 0 - 0.5 10*3/uL [facility] Eosinophils/100 WBC (Bld) 1 % 0 - 6 % [facility] Lymphocytes (Bld) [#/Vol] 0.8 10*3/uL Low 1. 0 - 4.3 10*3/uL [facility] Lymphocytes/100 WBC (Bld) 8 % Low 15 - 45 % [facility] Monocytes (Bld) [#/Vol] 1 10*3/uL High 0.0 - 0.9 10*3/uL [facility] Monocytes/100 WBC (Bld) 11 % 5 - 13 % [facility] Neutrophils (Bld) [#/Vol] 7.3 10*3/uL 1. 8 - 7.5 10*3/uL [facility] Ovalocytes LM Ql (Bld) Slight Abnormal (none) [facility] Poikilocytosis LM Ql (Bld) Slight Abnormal (none) [facility] RBC morphology finding Nom (Bld) abnormal [facility] Schistocytes LM Ql (Bld) Slight Abnormal (none) [facility] Segmented neutrophils/100 WBC (Bld) 78 % 38 - 82 % [facility] MAGNESIUMon 06-29-2024 Magnesium [Mass/Vol] 2.2 mg/dL Normal 1.6-2.3 [facility] Comment on above: Performed By: #### L AB17, [id number], [id number] ####Claims Investigator: RUTH ANN BRAGG ([id number])[facility] [place] ([facility])[address] MANUAL DIFFERENTIAL (CELLAVI KRISTIAN)on 06-29-2024 ACANTHOCYTES (PRESENCE) IN BLOOD BY LIGHT MICROSCOPY Slight Abnormal (none) [facility] Comment on above: Performed By: #### L [id number], [id number] ####Claims Investigator: RUTH ANN BRAGG ([id number])[facility] [place] ([facility])[address] ANISOCYTOSIS PRESENCE IN BLOOD BY LIGHT MICROSCOPY Slight Abnormal (none) [facility] Comment on above: Performed By: #### L [id number], [id number] ####Claims Investigator: RUTH ANN BRAGG ([id number])[facility] [place] ([facility])[address] BAND NEUTROPHILS TOTAL PER COUNTED LEUKOCYTES BY MANUAL COUNT Normal [facility] Comment on above: Performed By: #### L [id number], [id number] ####Claims Investigator: RUTH ANN BRAGG ([phone])[facility] ([facility])[address] BASOPHILS (10*3/UL) IN BLOOD-CELLAVISION 0.1 10*3/uL Normal 0.0-0.2 [facility] Comment on above: Performed By: #### L [id number], [id number] ####Claims Investigator: RUTH ANN BRAGG ([phone])[facility] [place] ([facility])[address] BASOPHILS TOTAL PER COUNTED LEUKOCYTES BY MANUAL COUNT 1 Normal [facility] Comment on above: Performed By: #### L [id number], [id number] ####Claims Investigator: RUTH ANN BRAGG ([phone])[facility] ([facility])[address] [place] [address] [place] BASOPHILS/100 LEUKOCYTES IN BLOOD-CELLAVISION 1 % Normal 0-2 [facility] Comment on above: Performed By: #### L [id number], [id number] ####Claims Investigator: RUTH ANN BRAGG ([id number])[facility] [place] ([facility])[address] [place] [address] [place] BLASTS TOTAL PER COUNTED LEUKOCYTES BY MANUAL COUNT Normal [facility] Comment on above: Performed By: #### L [id number], [id number] ####Claims Investigator: RUTH ANN BRAGG ([id number])[facility] [place] ([facility])[address] [place] [address] [place] EOSINOPHILS (10*3/UL) IN BLOOD-CELLAVISION 0.1 10*3/uL Normal 0.0-0.[address] [facility] Comment on above: Performed By: #### L [id number], [id number] ####Claims Investigator: RUTH ANN BRAGG ([phone])[facility] [place] ([facility])[address] [place] [address] [place] EOSINOPHILS TOTAL PER COUNTED LEUKOCYTES BY MANUAL COUNT 1 Normal 0-[address] [facility] Comment on above: Performed By: #### L [id number], [id number] ####Claims Investigator: RUHT ANN BRAGG ([id number])[facility] [place] ([facility])[address] [place] [address] [place] EOSINOPHILS/100 LEUKOCYTES IN BLOOD-CELLAVISION 1 % Normal 0-[address] [facility] Comment on above: Performed By: #### L [id number], [id number] ####Claims Investigator: RUTH ANN BRAGG ([phone])[facility] [place] ([facility])[address] [place] [address] [place] LYMPHOCYTES (10*3/UL) IN BLOOD-CELLAVISION 0.8 10*3/uL Low 1.0-4.[address] [facility] Comment on above: Performed By: #### L [id number], [id number] ####Claims Investigator: RUTH ANN BRAGG ([id number])[facility] [place] ([facility])[address] [place] [address] [place] LYMPHOCYTES TOTAL PER COUNTED LEUKOCYTES BY MANUAL COUNT [address] [facility] Comment on above: Performed By: #### L [id number], [id number] ####Claims Investigator: RUTH ANN PRITCHARDCER ([phone])[facility] [place] ([facility])[address] [place] [address] [place] LYMPHOCYTES/100 LEUKOCYTES IN BLOOD-CELLAVISION 8 % Low 15-[address] [facility] Comment on above: Performed By: #### L [id number], [id number] ####Claims Investigator: RUTH ANN PRITCHARDCER ([id number])[facility] [place] ([facility])[address] [place] [address] [place] METAMYELOCYTES TOTAL PER COUNTED LEUKOCYTES BY MANUAL COUNT Normal [facility] Comment on above: Performed By: #### L [id number] ####Claims Investigator: RUTH ANN BRAGG ([id number])[facility] ([facility])[address] [place] [address] [place] MONOCYTES (10*3/UL) IN BLOOD-CELLAVISION 1.0 10*3/uL High 0.0-0.[address] [facility] Comment on above: Performed By: #### L [id number], [id number] ####Claims Investigator: RUTH ANN BRAGG ([id number])[facility] ([facility])[address] [place] [address] [place] MONOCYTES TOTAL PER COUNTED LEUKOCYTES BY MANUAL COUNT 11 Normal [facility] Comment on above: Performed By: #### L [id number], [id number] ####Claims Investigator: RUTH ANN PRITCHARDCER ([id number])[facility] ([facility])[address] [place] [address] [place] MONOCYTES/100 LEUKOCYTES IN BLOOD-TOMMIE 11 % Normal 5-[address] [facility] Comment on above: Performed By: #### L [id number], [id number] ####Claims Investigator: RUTH ANN BRAGG ([id number])[facility] ([facility])[address] [place] [address] [place] MYELOCYTES COUNTED BY MANUAL COUNT Normal [facility] Comment on above: Performed By: #### L [id number], [id number] ####Claims Investigator: RUTH ANN HERRONSHELTON ([id number])[facility] ([facility])[address] [place] [address] [place] NEUTROPHILS TOTAL PER COUNTED LEUKOCYTES BY MANUAL COUNT 80 Normal [facility] Comment on above: Performed By: #### L [id number], [id number] ####Claims Investigator: RUTH ANN BRAGG ([phone])[facility] ([facility])[address] [place] [address] [place] OVALOCYTES PRESENCE IN BLOOD BY LIGHT MICROSCOPY Slight Abnormal (none) [facility] Comment on above: Performed By: #### L [id number], [id number] ####Claims Investigator: RUTH ANN BRAGG ([phone])[facility] ([facility])[address] [place] [address] [place] POIKILOCYTOSIS (PRESENCE) IN BLOOD BY LIGHT MICROSCOPY Slight Abnormal (none) [facility] Comment on above: Performed By: #### L [id number], [id number] ####Claims Investigator: RUTH ANN BRAGG ([id number])[facility] ([facility])[address] [place] [address] [place] PROMYELOCYTES TOTAL PER COUNTED LEUKOCYTES BY MANUAL COUNT Normal [facility] Comment on above: Performed By: #### L [id number], [id number] ####Claims Investigator: RUTH ANN BRAGG ([id number])[facility] ([facility])[address] [place] [address] [place] RBC MORPHOLOGY IN BLOOD abnormal Normal [facility] Comment on above: Performed By: #### L [id number], [id number] ####Claims Investigator: RUTH ANN BRAGG ([id number])[facility] ([facility])[address] [place] [address] [place] SCHISTOCYTES (PRESENCE) IN BLOOD BY LIGHT MICROSCOPY Slight Abnormal (none) [facility] Comment on above: Performed By: #### L [id number], [id number] ####Claims Investigator: RUTH ANN BRAGG ([id number])[facility] ([facility])[address] SEGMENTED NEUTROPHILS (10*3/UL) IN BLOOD-CELLAVISION 7.3 10*3/uL Normal 1.8-7.5 [facility] Comment on above: Performed By: #### L [id number], [id number] ####Claims Investigator: RUTH ANN BRAGG ([id number])[facility] ([facility])[address] SEGMENTED NEUTROPHILS/100 LEUKOCYTES-CE 78 % Normal 38-82 [facility] Comment on above: Performed By: #### L [id number], [id number] ####Claims Investigator: RUTH ANN BRAGG ([id number])[facility] ([facility])[address] UNCLASSIFIED CELLS TOTAL PER COUNTED LEUKOCYTES BY MANUAL COUNT Normal [facility] Comment on above: Performed By: #### L [id number], [id number] ####Claims Investigator: RUTH ANN BRAGG ([id number])[facility] ([facility])[address] VARIANT LYMPHOCYTES TOTAL PER COUNTED LEUKOCYTES BY MANUAL COUNT Normal [facility] Comment on above: Performed By: #### L [id number], [id number] ####Claims Investigator: RUTH ANN BRAGG ([id number])[facility] ([facility])[address] [place] [address] [place] Magnesium [Mass/Vol]on 06-29 Interpretation and review of laboratory results Normal [facility] No Panel Informationon 06-29 Interpretation and review of laboratory results Abnormal [facility] Interpretation and review of laboratory results Abnormal [facility] Interpretation and review of laboratory results Abnormal [facility] Interpretation and review of laboratory results Abnormal [facility] Basophils Manual 1 [facility] Eosinophils Manual 1 0 - 1 [facility] Interpretation and review of laboratory results Abnormal [facility] Lymphocytes Manual 8 [facility] Monocytes Manual 11 [facility] Neutrophils Manual 80 [facility] Interpretation and review of laboratory results Abnormal [facility] Interpretation and review of laboratory results Abnormal [facility] PHOSPHORUSon 06-29-2024 Phosphate [Mass/Vol] 2.2 mg/dL Low 2.5-4.5 [facility] Comment on above: Performed By: #### L [id number], [id number], [id number] ####Claims Investigator: RUTH ANN BRAGG ([id number])[facility] ([facility])[address] [place] [address] Phosphate [Moles/Vol]on 06-09 Phosphate [Mass/Vol] 2.2 mg/dL Low 2.5 - 4 .5 mg/dL [facility] Progress Noteon 06-29-2024 Progress Note Normal [facility] Progress Note Normal [facility] Progress [facility] Normal [facility] Progress [facility] Progress Note Normal [facility] Progress Note Normal [facility] 30on 06-28-[address] [facility] [address] [facility] [id number] 06-28-[id number] [facility] AMMONIAon 06-28-2024 Ammonia (P) [Moles/Vol] 27 umol/L Normal 9-30 [facility] Comment on above: Performed By: #### L [id number] ####Claims Investigator: RUTH ANN BRAGG ([id number])[facility] ([facility])[address] [place] [address] Bacteria identified Cx Nom ( U)Ordered By: Christie Avila on 06-28-2024 Interpretation and review of laboratory results Abnormal [facility] CALCIUM, IONIZEDon CALCIUM IONIZED 4.70 mg/dL Normal 4.30-5.20 [facility] Comment on above: Performed By: #### L [id number] ####Claims Investigator: RUTH ANN BRAGG ([id number])[facility] (SBHLAB)[address] PH, IONIZED CALCIUM 7.50 High 7.31-7.46 [facility] Comment on above: Performed By: #### L [id number] ####Claims Investigator: RUTH ANN BRAGG ([id number])[facility] (SB[facility]AB)[address] CBC W Auto Differential pane l (Bld)Ordered By: Jr Chase on 06-28-2024 Erythrocyte distribution width (RBC) [Ratio] 15.6 % High 11.5 - 15.0 % [facility] Hematocrit (Bld) [Volume fraction] 28 % Low 35.0 - 47.0 % [facility] Hemoglobin (Bld) [Mass/Vol] 8.8 g/dL Low 11.7 - 16.0 g/dL [facility] Interpretation and review of laboratory results Abnormal [facility] MCH (RBC) [Entitic mass] 31.7 pg 26. 0 - 34.0 pg [facility] MCHC (RBC) [Mass/Vol] 31.4 % 30.5 - 36.0 % [facility] MCV (RBC) [Entitic vol] 100.7 fL High 77.0 - 99.0 fL [facility] Platelet mean volume (Bld) [Entitic vol] 10.8 fL 9.0 - 12.7 fL [facility] Platelets (Bld) [#/Vol] 105 10*3/uL Low 140 - 440 10*3/uL [facility] RBC (Bld) [#/Vol] 2.78 10*6/uL Low 3.80 - 5.2 0 10*6/uL [facility] WBC (Bld) [#/Vol] 11.1 10*3/uL High 3.6 - 10.7 10*3/uL [facility] CBC WITH AUTO DIFFERENTIALon 06-28-2024 Erythrocyte distribution width (RBC) [Ratio] 15.6 % High 11.5-15.0 [facility] Comment on above: Performed By: #### L [id number], [id number] ####Claims Investigator: RUTH ANN BRAGG ([id number])[facility] (SBHLAB)[address] Hematocrit (Bld) [Volume fraction] 28.0 % Low 35.0-47.0 [facility] Comment on above: Performed By: #### L [id number], [id number] ####Claims Investigator: RUTH ANN BRAGG ([id number])[facility] (SBHLAB)[address] Hemoglobin (Bld) [Mass/Vol] 8.8 g/dL Low 11.7-16.0 [facility] Comment on above: Performed By: #### L [id number], [id number] ####Claims Investigator: RUTH ANN BRAGG ([phone])[facility] ([facility])[address] [place] [address] MCH (RBC) [Entitic mass] 31.7 pg Normal 26.0-34.0 [facility] Comment on above: Performed By: #### L [id number], [id number] ####Claims Investigator: RUTH ANN BRAGG ([id number])[facility] [place] (SBHLAB)[address] [place] [address] MCHC 31.4 % Normal 30.5-36.0 [facility] Comment on above: Performed By: #### L [id number], [id number] ####Claims Investigator: RUTH ANN RBAGG ([id number])[facility] (SB[facility]AB)[address] MCV (RBC) [Entitic vol] 100.7 fL High 77.0-99.0 [facility] Comment on above: Performed By: #### L [id number], [id number] ####Claims Investigator: RUTH ANN BRAGG ([id number])[facility] (SB[facility]AB)[address] Platelet mean volume (Bld) [Entitic vol] 10.8 fL Normal 9.0-12.7 [facility] Comment on above: Performed By: #### L [id number], [id number] ####Claims Investigator: RUTH ANN BRAGG ([id number])[facility] (SB[facility])[address] Platelets (Bld) [#/Vol] 105 10*3/uL Low 140-440 [facility] Comment on above: Performed By: #### L [id number], [id number] ####Claims Investigator: RUTH ANN BRAGG ([id number])[facility] ([facility])[address] RBC (Bld) [#/Vol] 2.78 10*6/uL Low 3.80-5.20 [facility] Comment on above: Performed By: #### L [id number], [id number] ####Claims Investigator: RUTH ANN BRAGG ([phone])[facility] ([facility])[address] [place] [address] WBC (Bld) [#/Vol] 11.1 10*3/uL High 3.6-10.7 [facility] Comment on above: Performed By: #### L [id number], [id number] ####Claims Investigator: RUTH ANN BRAGG ([phone])[facility] (SB[facility])[address] [place] [address] COMPREHENSIVE METABOLIC PANE Smith 06-28-2024 Albumin [Mass/Vol] 3.0 g/dL Low 3.5-5.0 [facility] Comment on above: Performed By: #### L [id number], [id number], [id number] ####Claims Investigator: RUTH ANN BRAGG ([id number])[facility] (SB[facility])[address] ALP [Catalytic activity/Vol] 85 U/L Normal 38-126 [facility] Comment on above: Performed By: #### L AB17, [id number], [id number] ####Claims Investigator: RUTH ANN BRAGG ([id number])[facility] ([facility])[address] ALT [Catalytic activity/Vol] 24 U/L Normal 0-34 [facility] Comment on above: Performed By: #### L AB17, [id number], [id number] ####Claims Investigator: RUTH ANN BRAGG ([id number])[facility] (SB[facility])[address] Anion gap [Moles/Vol] 7 mmol/L Normal 3-13 [facility] Comment on above: Performed By: #### L AB17, [id number], [id number] ####Claims Investigator: RUTH ANN BRAGG ([id number])[facility] ([facility])[address] AST [Catalytic activity/Vol] 51 U/L High 15-46 [facility] Comment on above: Performed By: #### L AB17, [id number], [id number] ####Claims Investigator: RUTH ANN BRAGG ([id number])[facility] (SB[facility]AB)[address] Bilirubin [Mass/Vol] 0.9 mg/dL Normal 0.2-1.3 [facility] Comment on above: Performed By: #### L AB17, [id number], [id number] ####Claims Investigator: RUTH ANN BRAGG ([phone])[facility] ([facility])[address] Calcium [Mass/Vol] 9.2 mg/dL Normal 8.4-10.4 [facility] Comment on above: Performed By: #### L AB17, [id number], [id number] ####Claims Investigator: RUTH ANN BRAGG ([id number])[facility] ([facility])[address] Chloride [Moles/Vol] 120 mmol/L High 98-107 [facility] Comment on above: Performed By: #### L AB17, [id number], [id number] ####Claims Investigator: RUTH ANN BRAGG ([id number])[facility] ([facility])[address] [place] [address] [place] CO2 [Moles/Vol] 19 mmol/L Low 22-30 [facility] Comment on above: Performed By: #### L AB17, [id number], [id number] ####Claims Investigator: RUTH ANN BRAGG ([id number])[facility] ([facility])[address] Creatinine [Mass/Vol] 1.43 mg/dL High 0.52-1.04 [facility] Comment on above: Performed By: #### L AB17, [id number], [id number] ####Claims Investigator: RUTH ANN BRAGG ([id number])[facility] ([facility])[address] GLOMERULAR FILTRATION RATE ML/MIN/1.73 SQ M.PREDICTED 37.6 mL/min/1.73m*2 Low >60.0 [facility] Comment on above: Result Comment: Calc ulation based on the Chronic Kidney Disease Epidemiology Collaboration (CKD-EPI) equation refit without adjustment for race Performed By: #### L AB17, [id number], [id number] ####Claims Investigator: RUTH ANN BRAGG ([id number])[facility] ([facility])[address] [place] [address] [place] Glucose [Mass/Vol] 163 mg/dL High 70-100 [facility] Comment on above: Performed By: #### L AB17, [id number], GAQ406 ####Claims Investigator: RUTH ANN BRAGG ([phone])[facility] ([facility])[address] [place] [address] [place] Potassium [Moles/Vol] 3.6 mmol/L Normal 3.5-5.1 [facility] Comment on above: Performed By: #### L AB17, [id number], [id number] ####Claims Investigator: RUTH ANN BRAGG ([id number])[facility] ([facility])[address] [place] [address] [place] Protein [Mass/Vol] 6.0 g/dL Low 6.3-8.2 [facility] Comment on above: Performed By: #### L AB17, [id number], [id number] ####Claims Investigator: RUTH ANN HERRONSHELTON ([phone])[facility] (SB[facility]AB)[address] Sodium [Moles/Vol] 146 mmol/L High 135-145 [facility] Comment on above: Performed By: #### L AB17, [id number], [id number] ####Claims Investigator: RUTH ANN BRAGG ([id number])[facility] ([facility])[address] Urea nitrogen [Mass/Vol] 51 mg/dL High 7-17 [facility] Comment on above: Performed By: #### L AB17, [id number], [id number] ####Claims Investigator: RUTH ANN OBREGONWILTON ([phone])[facility] ([facility])[address] Calcium.ionized [Moles/Vol]o n 06-28-2024 Calcium.ionized (Bld) [Moles/Vol] 4.7 mg/dL 4.30 - 5.20 mg/dL [facility] Interpretation and review of laboratory results Abnormal [facility] PH, IONIZED CALCIUM 7.5 High 7.31 - 7.46 [facility] Comprehensive metabolic 1998 panelon 06-28-2024 Albumin [Mass/Vol] 3 g/dL Low 3.5 - 5.0 g/dL [facility] ALP [Catalytic activity/Vol] 85 U/L 38 - 126 U/L [facility] ALT [Catalytic activity/Vol] 24 U/L 0 - 34 U/L [facility] Anion gap [Moles/Vol] 7 mmol/L 3 - 13 mmol/L [facility] AST [Catalytic activity/Vol] 51 U/L High 15 - 46 U/L [facility] Bilirubin [Mass/Vol] 0.9 mg/dL 0.2 - 1 .3 mg/dL [facility] Calcium [Mass/Vol] 9.2 mg/dL 8.4 - 10. 4 mg/dL [facility] Chloride [Moles/Vol] 120 mmol/L High 98 - 10 7 mmol/L [facility] CO2 [Moles/Vol] 19 mmol/L Low 22 - 30 mmol/L [facility] Creatinine [Mass/Vol] 1.43 mg/dL High 0.52 - 1.04 mg/dL [facility] GFR/1.73 sq M.predicted (S/P/Bld) [Vol rate/Area] 37.6 mL/min Low - PINF [facility] Glucose [Mass/Vol] 163 mg/dL High 70 - 100 mg/dL [facility] Interpretation and review of laboratory results Abnormal [facility] th Potassium [Moles/Vol] 3.6 mmol/L 3.5 - 5.1 mmol/L [facility] Protein [Mass/Vol] 6 g/dL Low 6.3 - 8.2 g/dL [facility] Sodium [Moles/Vol] 146 mmol/L High 135 - 145 mmol/L [facility] Urea nitrogen [Mass/Vol] 51 mg/dL High 7 - 17 mg/dL [facility] Consulton 06-28-2024 Consult Normal [facility] HEMOGLOBIN AND HEMATOCRIT, B LOODon 06-28-2024 Hematocrit (Bld) [Volume fraction] 27.4 % Low 35.0-47.0 [facility] Comment on above: Performed By: #### L [id number] ####Claims Investigator: RUTH ANN BRAGG ([phone])[facility] ([facility])[address] [place] [address] Hemoglobin (Bld) [Mass/Vol] 8.5 g/dL Low 11.7-16.0 [facility] Comment on above: Performed By: #### L [id number] ####Claims Investigator: RUTH ANN BRAGG ([id number])[facility] [place] [address] Hematocrit (Bld) [Volume fraction] 28.6 % Low 35.0-47.0 [facility] Comment on above: Performed By: #### L [id number] ####Claims Investigator: RUTH ANN BRAGG ([id number])[facility])[address] [place] [address] Hemoglobin (Bld) [Mass/Vol] 9.0 g/dL Low 11.7-16.0 [facility] Comment on above: Performed By: #### L [id number] ####Claims Investigator: RUTH ANN PRITCHARDCER ([id number])[facility])[address] [place] [address] Hematocrit (Bld) [Volume fraction] 28.1 % Low 35.0-47.0 [facility] Comment on above: Performed By: #### L [id number] ####Claims Investigator: RUTH ANN PRITCHARDCER ([phone])[facility])[address] [place] [address] Hemoglobin (Bld) [Mass/Vol] 8.9 g/dL Low 11.7-16.0 [facility] Comment on above: Performed By: #### L [id number] ####Claims Investigator: RUTH ANN HERRONSHELTON ([phone])[facility] ([facility])[address] [place] [address] Hemoglobin (Bld) [Mass/Vol]O rdered By: Jayashree Naranjo on 06-28-2024 Hematocrit (Bld) [Volume fraction] 27.4 % Low 35.0 - 47.0 % [facility] Interpretation and review of laboratory results Abnormal [facility] Hemoglobin (Bld) [Mass/Vol]o n 06-28-2024 Hematocrit (Bld) [Volume fraction] 28.6 % Low 35.0 - 47.0 % [facility] Interpretation and review of laboratory results Abnormal [facility] Hematocrit (Bld) [Volume fraction] 28.1 % Low 35.0 - 47.0 % [facility] Interpretation and review of laboratory results Abnormal [facility] Laboratory - Chemistry and C hemistry - challengeon 06-28-2024 Glucose [Mass/Vol] 208 mg/dL High 70 - 100 mg/dL [facility] Glucose [Mass/Vol] 211 mg/dL High 70 - 100 mg/dL [facility] Glucose [Mass/Vol] 208 mg/dL High 70 - 100 mg/dL [facility] Glucose [Mass/Vol] 170 mg/dL High 70 - 100 mg/dL [facility] Magnesium [Mass/Vol] 2.1 mg/dL 1.6 - 2 .3 mg/dL [facility] Ammonia (P) [Moles/Vol] 27 umol/L 9 - 30 umol/L [facility] Laboratory - Hematology and Cell countsOrdered By: Jayashree Naranjo on 06-28-2024 Hemoglobin (Bld) [Mass/Vol] 8.5 g/dL Low 11.7 - 16.0 g/dL [facility] Laboratory - Hematology and Cell countson 06-28-2024 Hemoglobin (Bld) [Mass/Vol] 9 g/dL Low 11.7 - 16.0 g/dL [facility] Hemoglobin (Bld) [Mass/Vol] 8.9 g/dL Low 11.7 - 16.0 g/dL [facility] Eosinophils (Bld) [#/Vol] 0.1 10*3/uL 0. 0 - 0.5 10*3/uL [facility] Eosinophils/100 WBC (Bld) 1 % 0 - 6 % [facility] Lymphocytes (Bld) [#/Vol] 1.1 10*3/uL 1. 0 - 4.3 10*3/uL [facility] Lymphocytes/100 WBC (Bld) 10 % Low 15 - 45 % [facility] Monocytes (Bld) [#/Vol] 1.3 10*3/uL High 0.0 - 0.9 10*3/uL [facility] Monocytes/100 WBC (Bld) 12 % 5 - 13 % [facility] Neutrophils (Bld) [#/Vol] 8.7 10*3/uL High 1. 8 - 7.5 10*3/uL [facility] RBC morphology finding Nom (Bld) Normal [facility] Segmented neutrophils/100 WBC (Bld) 78 % 38 - 82 % [facility] Laboratory - Microbiology an d Antimicrobial susceptibilityOrdered By: Christie Avila on 06-28-2024 Bacteria identified Cx Nom (U) >100,000 CFU/mL Escherichia coli Abnormal [facility] MAGNESIUMon 06-28-2024 Magnesium [Mass/Vol] 2.1 mg/dL Normal 1.6-2.3 [facility] Comment on above: Performed By: #### L AB17, [id number], [id number] ####Claims Investigator: RUTH ANNMELANIE BRAGG ([id number])[facility] ([facility]HLAB)[address] [place] [address] [place] MANUAL DIFFERENTIAL (CELLAVI KRISTIAN)on 06-28-2024 BAND NEUTROPHILS TOTAL PER COUNTED LEUKOCYTES BY MANUAL COUNT Normal [facility] Comment on above: Performed By: #### L [id number], [id number] ####Claims Investigator: RUTH ANN YEMI ([id number])[facility] (SB[facility]AB)[address] [place] [address] [place] BASOPHILS TOTAL PER COUNTED LEUKOCYTES BY MANUAL COUNT Normal [facility] Comment on above: Performed By: #### L [id number], [id number] ####Claims Investigator: RUTH ANNMELANIE BRAGG ([id number])[facility] ([facility])[address] [place] [address] [place] BLASTS TOTAL PER COUNTED LEUKOCYTES BY MANUAL COUNT Normal [facility] Comment on above: Performed By: #### L [id number], [id number] ####Claims Investigator: RUTH ANN YEMI ([phone])[facility] ([facility])[address] [place] [address] [place] EOSINOPHILS (10*3/UL) IN BLOOD-CELLAVISION 0.1 10*3/uL Normal 0.0-0.[address] [facility] Comment on above: Performed By: #### L [id number], [id number] ####Claims Investigator: RUTH ANN HERRONSHELTON ([phone])[facility] ([facility])[address] [place] [address] [place] EOSINOPHILS TOTAL PER COUNTED LEUKOCYTES BY MANUAL COUNT 1 Normal 0-[address] [facility] Comment on above: Performed By: #### L [id number], [id number] ####Claims Investigator: RUTH ANN OBREGONWILTON ([phone])[facility] ([facility])[address] [place] [address] [place] EOSINOPHILS/100 LEUKOCYTES IN BLOOD-CELLAVISION 1 % Normal 0-[address] [facility] Comment on above: Performed By: #### L [id number], [id number] ####Claims Investigator: RUTH ANNMELANIE BRAGG ([phone])[facility] ([facility])[address] [place] [address] [place] LYMPHOCYTES (10*3/UL) IN BLOOD-CELLAVISION 1.1 10*3/uL Normal 1.0-4.[address] [facility] Comment on above: Performed By: #### L [id number], [id number] ####Claims Investigator: RUTH ANNMELANIE BRAGG ([id number])[facility] [place] [address] [place] LYMPHOCYTES TOTAL PER COUNTED LEUKOCYTES BY MANUAL COUNT [address] [facility] Comment on above: Performed By: #### L [id number], [id number] ####Claims Investigator: RUTH ANN BRAGG ([phone])[facility] ([facility] [place] [address] [place] LYMPHOCYTES/100 LEUKOCYTES IN BLOOD-CELLAVISION 10 % Low 15-[address] [facility] Comment on above: Performed By: #### L [id number], [id number] ####Claims Investigator: RUTH ANN YEMI ([id number])[facility] [place] [address] [place] METAMYELOCYTES TOTAL PER COUNTED LEUKOCYTES BY MANUAL COUNT Normal [facility] Comment on above: Performed By: #### L [id number], [id number] ####Claims Investigator: RUTH ANN YEMI ([id number])[facility] [place] [address] [place] MONOCYTES (10*3/UL) IN BLOOD-CELLAVISION 1.3 10*3/uL High 0.0-0.[address] [facility] Comment on above: Performed By: #### L [id number], [id number] ####Claims Investigator: RUTH ANN YEMI ([phone])[facility] ([facility] [place] [address] [place] MONOCYTES TOTAL PER COUNTED LEUKOCYTES BY MANUAL COUNT [address] [facility] Comment on above: Performed By: #### L [id number], [id number] ####Claims Investigator: RUTH ANN BRAGG ([phone])[facility] ([facility])[address] [place] [address] [place] MONOCYTES/100 LEUKOCYTES IN BLOOD-TOMMIE 12 % Normal 5-13 [facility] Comment on above: Performed By: #### L [id number], [id number] ####Claims Investigator: RUTH ANN BRAGG ([id number])[facility] ([facility])[address] MYELOCYTES COUNTED BY MANUAL COUNT [facility] Comment on above: Performed By: #### L [id number], [id number] ####Claims Investigator: RUTH ANN BRAGG ([id number])[facility] ([facility])[address] NEUTROPHILS TOTAL PER COUNTED LEUKOCYTES BY MANUAL COUNT 81 [facility] Comment on above: Performed By: #### L [id number], [id number] ####Claims Investigator: RUTH ANN BRAGG ([phone])[facility] ([facility])[address] PROMYELOCYTES TOTAL PER COUNTED LEUKOCYTES BY MANUAL COUNT [facility] Comment on above: Performed By: #### L [id number], [id number] ####Claims Investigator: RUTH ANN BRAGG ([phone])[facility] ([facility] [place] [address] [place] RBC MORPHOLOGY IN BLOOD Normal Normal [facility] Comment on above: Performed By: #### L [id number], [id number] ####Claims Investigator: RUTH ANN BRAGG ([id number])[facility] [place] [address] [place] SEGMENTED NEUTROPHILS (10*3/UL) IN BLOOD-CELLAVISION 8.7 10*3/uL High 1.8-7.5 [facility] Comment on above: Performed By: #### L [id number], [id number] ####Claims Investigator: RUTH ANN BRAGG ([phone])[facility] ([facility])[address] SEGMENTED NEUTROPHILS/100 LEUKOCYTES-CE 78 % Normal 38-82 [facility] Comment on above: Performed By: #### L [id number], [id number] ####Claims Investigator: RUTH ANN BRAGG ([id number])[facility] ([facility])[address] UNCLASSIFIED CELLS TOTAL PER COUNTED LEUKOCYTES BY MANUAL COUNT Normal [facility] Comment on above: Performed By: #### L [id number], [id number] ####Claims Investigator: RUTH ANN BRAGG ([id number])[facility] ([facility])[address] VARIANT LYMPHOCYTES TOTAL PER COUNTED LEUKOCYTES BY MANUAL COUNT Normal [facility] Comment on above: Performed By: #### L [id number], [id number] ####Claims Investigator: RUTH ANN BRAGG ([phone])[facility] ([facility])[address] No Panel Informationon 06-28 Interpretation and review of laboratory results Abnormal [facility] Interpretation and review of laboratory results Abnormal [facility] Interpretation and review of laboratory results Abnormal [facility] Eosinophils Manual 1 0 - 1 [facility] Interpretation and review of laboratory results Abnormal [facility] Lymphocytes Manual 10 [facility] Monocytes Manual 12 [facility] Neutrophils Manual 81 [facility] Interpretation and review of laboratory results Abnormal [facility] Interpretation and review of laboratory results Normal [facility] Interpretation and review of laboratory results Normal [facility] PHOSPHORUSon 06-28-2024 Phosphate [Mass/Vol] 2.9 mg/dL Normal 2.5-4.5 [facility] Comment on above: Performed By: #### L [id number], [id number], [id number] ####Claims Investigator: RUTH ANN BRAGG ([phone])[facility] ([facility])[address] [place] [address] [place] Phosphate [Moles/Vol]on 06-09 Phosphate [Mass/Vol] 2.9 mg/dL 2.5 - 4 .5 mg/dL [facility] Progress Noteon 06-28-2024 Progress Note Normal [facility] Progress Note Normal [facility] 30on 06-27-2024 30 Normal [facility] 30 Normal [facility] [id number] 06-27-2024 [id number] Pt still lethargic and only arousable to noxious stimuli. Awaiting Palliative Care Cons prior to IA being completed. TCC will continue to follow. Normal [facility] AMMONIAon 06-27-2024 Ammonia (P) [Moles/Vol] 48 umol/L High 9-30 [facility] Comment on above: Performed By: #### L [id number] ####Claims Investigator: RUTH ANN BRAGG ([phone])[facility] ([facility])[address] [place] [address] CALCIUM, IONIZEDon CALCIUM IONIZED 4.70 mg/dL Normal 4.30-5.20 [facility] Comment on above: Performed By: #### L [id number] ####Claims Investigator: RUTH ANN BRAGG ([id number])[facility] ([facility])[address] [place] [address] PH, IONIZED CALCIUM 7.41 Normal 7.31-7.46 [facility] Comment on above: Performed By: #### L [id number] ####Claims Investigator: RUTH ANN BRAGG ([phone])[facility] ([facility])[address] CBC W Auto Differential pane l (Bld)Ordered By: Osiel White on 06-27-2024 Erythrocyte distribution width (RBC) [Ratio] 15.3 % High 11.5 - 15.0 % [facility] Hematocrit (Bld) [Volume fraction] 27.1 % Low 35.0 - 47.0 % [facility] Hemoglobin (Bld) [Mass/Vol] 8.6 g/dL Low 11.7 - 16.0 g/dL [facility] MCH (RBC) [Entitic mass] 31 pg 26. 0 - 34.0 pg [facility] MCHC (RBC) [Mass/Vol] 31.7 % 30.5 - 36.0 % [facility] MCV (RBC) [Entitic vol] 97.8 fL 77.0 - 99.0 fL [facility] Platelet mean volume (Bld) [Entitic vol] 11.2 fL 9.0 - 12.7 fL [facility] Platelets (Bld) [#/Vol] 122 10*3/uL Low 140 - 440 10*3/uL [facility] RBC (Bld) [#/Vol] 2.77 10*6/uL Low 3.80 - 5.2 0 10*6/uL [facility] WBC (Bld) [#/Vol] 11.9 10*3/uL High 3.6 - 10.7 10*3/uL [facility] CBC WITH AUTO DIFFERENTIALon 06-27-2024 Erythrocyte distribution width (RBC) [Ratio] 15.3 % High 11.5-15.[address] [facility] Comment on above: Performed By: #### L [id number], [id number] ####Claims Investigator: RUTH ANN BRAGG ([phone])[facility] ([facility])[address] [place] [address] Hematocrit (Bld) [Volume fraction] 27.1 % Low 35.0-47.0 [facility] Comment on above: Performed By: #### L [id number], [id number] ####Claims Investigator: RUTH ANN BRAGG ([phone])[facility] Hemoglobin (Bld) [Mass/Vol] 8.6 g/dL Low 11.7-16.0 [facility] Comment on above: Performed By: #### L [id number], [id number] ####Claims Investigator: RUTH ANN BRAGG ([id number])[facility] ([facility])[address] MCH (RBC) [Entitic mass] 31.0 pg Normal 26.0-34.0 [facility] Comment on above: Performed By: #### L [id number], [id number] ####Claims Investigator: RUTH ANN BRAGG ([id number])[facility] ([facility])[address] MCHC 31.7 % Normal 30.5-36.0 [facility] Comment on above: Performed By: #### L [id number], [id number] ####Claims Investigator: RUTH ANN BRAGG ([id number])[facility] (SB[facility]AB)[address] MCV (RBC) [Entitic vol] 97.8 fL Normal 77.0-99.0 [facility] Comment on above: Performed By: #### L [id number], [id number] ####Claims Investigator: RUTH ANN BRAGG ([id number])[facility] ([facility])[address] Platelet mean volume (Bld) [Entitic vol] 11.2 fL Normal 9.0-12.7 [facility] Comment on above: Performed By: #### L [id number], [id number] ####Claims Investigator: RUTH ANN BRAGG ([id number])[facility] ([facility])[address] [place] [address] [place] Platelets (Bld) [#/Vol] 122 10*3/uL Low 140-440 [facility] Comment on above: Performed By: #### L [id number], [id number] ####Claims Investigator: RUTH ANN BRAGG ([id number])[facility] ([facility])[address] RBC (Bld) [#/Vol] 2.77 10*6/uL Low 3.80-5.[address] [facility] Comment on above: Performed By: #### L [id number], [id number] ####Claims Investigator: RUTH ANN BRAGG ([phone])[facility] ([facility])[address] WBC (Bld) [#/Vol] 11.9 10*3/uL High 3.6-10.7 [facility] Comment on above: Performed By: #### L [id number], [id number] ####Claims Investigator: RUTH ANN BRAGG ([phone])[facility] ([facility])[address] COMPREHENSIVE METABOLIC PANE Smith 06-27-2024 Albumin [Mass/Vol] 3.0 g/dL Low 3.5-5.0 [facility] Comment on above: Performed By: #### L AB17, [id number], [id number] ####Claims Investigator: RUTH ANN BRAGG ([id number])[facility] ([facility])[address] ALP [Catalytic activity/Vol] 64 U/L Normal 38-126 [facility] Comment on above: Performed By: #### L AB17, [id number], [id number] ####Claims Investigator: RUTH ANN BRAGG ([phone])[facility] ([facility])[address] ALT [Catalytic activity/Vol] 20 U/L Normal 0-34 [facility] Comment on above: Performed By: #### L AB17, [id number], [id number] ####Claims Investigator: RUTH ANN BRAGG ([phone])[facility] ([facility])[address] Anion gap [Moles/Vol] 7 mmol/L Normal 3-13 [facility] Comment on above: Performed By: #### L AB17, [id number], [id number] ####Claims Investigator: RUTH ANN BRAGG ([phone])[facility] ([facility])[address] AST [Catalytic activity/Vol] 41 U/L Normal 15-46 [facility] Comment on above: Performed By: #### L AB17, [id number], [id number] ####Claims Investigator: RUTH ANN BRAGG ([phone])[facility] ([facility])[address] Bilirubin [Mass/Vol] 0.9 mg/dL Normal 0.2-1.3 [facility] Comment on above: Performed By: #### L AB17, [id number], [id number] ####Claims Investigator: RUTH ANN BRAGG ([phone])[facility] ([facility])[address] Calcium [Mass/Vol] 9.2 mg/dL Normal 8.4-10.4 [facility] Comment on above: Performed By: #### L AB17, [id number], [id number] ####Claims Investigator: RUTH ANN BRAGG ([phone])[facility] ([facility])[address] [place] [address] [place] Chloride [Moles/Vol] 120 mmol/L High 98-107 [facility] Comment on above: Performed By: #### L AB17, [id number], [id number] ####Claims Investigator: RUTH ANN BRAGG ([phone])[facility] ([facility])[address] CO2 [Moles/Vol] 20 mmol/L Low 22-30 [facility] Comment on above: Performed By: #### L AB17, [id number], [id number] ####Claims Investigator: RUTH ANN BRAGG ([phone])[facility] ([facility])[address] [place] [address] [place] Creatinine [Mass/Vol] 1.59 mg/dL High 0.52-1.04 [facility] Comment on above: Performed By: #### L AB17, [id number], [id number] ####Claims Investigator: RUTH ANN BRAGG ([phone])[facility] ([facility])[address] [place] [address] [place] GLOMERULAR FILTRATION RATE ML/MIN/1.73 SQ M.PREDICTED 33.1 mL/min/1.73m*2 Low >60.0 [facility] Comment on above: Result Comment: Calc ulation based on the Chronic Kidney Disease Epidemiology Collaboration (CKD-EPI) equation refit without adjustment for race Performed By: #### L AB17, [id number], [id number] ####Claims Investigator: RUTH ANN BRAGG ([phone])[facility] ([facility])[address] Glucose [Mass/Vol] 159 mg/dL High 70-100 [facility] Comment on above: Performed By: #### L AB17, [id number], [id number] ####Claims Investigator: RUTH ANN BRAGG ([id number])[facility] ([facility])[address] Potassium [Moles/Vol] 3.3 mmol/L Low 3.5-5.1 [facility] Comment on above: Performed By: #### L AB17, [id number], [id number] ####Claims Investigator: RUTH ANN BRAGG ([phone])[facility] ([facility])[address] Protein [Mass/Vol] 6.0 g/dL Low 6.3-8.2 [facility] Comment on above: Performed By: #### L AB17, [id number], SNS475 ####Claims Investigator: RUTH ANN BRAGG ([phone])[facility] ([facility])[address] [place] [address] [place] Sodium [Moles/Vol] 147 mmol/L High 135-145 [facility] Comment on above: Performed By: #### L AB17, [id number], [id number] ####Claims Investigator: RUTH ANN BRAGG ([id number])[facility] ([facility])[address] [place] [address] [place] Urea nitrogen [Mass/Vol] 51 mg/dL High 7-17 [facility] Comment on above: Performed By: #### L AB17, [id number], [id number] ####Claims Investigator: RUTH ANN BRAGG ([id number])[facility] ([facility])[address] [place] [address] Calcium.ionized [Moles/Vol]o n 06-27-2024 Calcium.ionized (Bld) [Moles/Vol] 4.7 mg/dL 4.30 - 5.20 mg/dL [facility] Interpretation and review of laboratory results Normal [facility] PH, IONIZED CALCIUM 7.41 7.31 - 7.46 [facility] Comprehensive metabolic 1998 panelon 06-27-2024 Albumin [Mass/Vol] 3 g/dL Low 3.5 - 5.0 g/dL [facility] ALP [Catalytic activity/Vol] 64 U/L 38 - 126 U/L [facility] ALT [Catalytic activity/Vol] 20 U/L 0 - 34 U/L [facility] Anion gap [Moles/Vol] 7 mmol/L 3 - 13 mmol/L [facility] AST [Catalytic activity/Vol] 41 U/L 15 - 46 U/L [facility] Bilirubin [Mass/Vol] 0.9 mg/dL 0.2 - 1 .3 mg/dL [facility] Calcium [Mass/Vol] 9.2 mg/dL 8.4 - 10. 4 mg/dL [facility] Chloride [Moles/Vol] 120 mmol/L High 98 - 10 7 mmol/L [facility] CO2 [Moles/Vol] 20 mmol/L Low 22 - 30 mmol/L [facility] Creatinine [Mass/Vol] 1.59 mg/dL High 0.52 - 1.04 mg/dL [facility] GFR/1.73 sq M.predicted (S/P/Bld) [Vol rate/Area] 33.1 mL/min Low - PINF [facility] Glucose [Mass/Vol] 159 mg/dL High 70 - 100 mg/dL [facility] Interpretation and review of laboratory results Abnormal [facility] Potassium [Moles/Vol] 3.3 mmol/L Low 3.5 - 5.1 mmol/L [facility] Protein [Mass/Vol] 6 g/dL Low 6.3 - 8.2 g/dL [facility] Sodium [Moles/Vol] 147 mmol/L High 135 - 145 mmol/L [facility] Urea nitrogen [Mass/Vol] 51 mg/dL High 7 - 17 mg/dL [facility] HEMOGLOBIN AND HEMATOCRIT, B LOODon 06-27-2024 Hematocrit (Bld) [Volume fraction] 27.7 % Low 35.0-47.0 [facility] Comment on above: Performed By: #### L [id number] ####Claims Investigator: RUTH ANN BRAGG ([phone])[facility] ([facility])[address] Hemoglobin (Bld) [Mass/Vol] 8.7 g/dL Low 11.7-16.0 [facility] Comment on above: Performed By: #### L [id number] ####Claims Investigator: RUTH ANN BRAGG ([id number])[facility] ([facility])[address] Hematocrit (Bld) [Volume fraction] 28.1 % Low 35.0-47.0 [facility] Comment on above: Performed By: #### L [id number] ####Claims Investigator: RUTH ANN BRAGG ([id number])[facility] ([facility])[address] Hemoglobin (Bld) [Mass/Vol] 9.0 g/dL Low 11.7-16.0 [facility] Comment on above: Performed By: #### L [id number] ####Claims Investigator: RUTH ANN BRAGG ([id number])[facility] ([facility])[address] Hematocrit (Bld) [Volume fraction] 29.0 % Low 35.0-47.0 [facility] Comment on above: Performed By: #### L [id number] ####Claims Investigator: RUTH ANN BRAGG ([id number])[facility] ([facility])[address] Hemoglobin (Bld) [Mass/Vol] 9.3 g/dL Low 11.7-16.0 [facility] Comment on above: Performed By: #### L [id number] ####Claims Investigator: RUTH ANN [id number])[facility] ([facility])[address] Hematocrit (Bld) [Volume fraction] 27.1 % Low 35.0-47.0 [facility] Comment on above: Performed By: #### L [id number] ####Claims Investigator: RUTH ANN HERRONSHELTON ([phone])[facility] ([facility])[address] [place] [address] Hemoglobin (Bld) [Mass/Vol] 8.7 g/dL Low 11.7-16.0 [facility] Comment on above: Performed By: #### L [id number] ####Claims Investigator: RUTH ANN HERRONSHELTON ([phone])[facility] ([facility])[address] [place] [address] Hemoglobin (Bld) [Mass/Vol]o n 06-27-2024 Hematocrit (Bld) [Volume fraction] 27.7 % Low 35.0 - 47.0 % [facility] Interpretation and review of laboratory results Abnormal [facility] Hematocrit (Bld) [Volume fraction] 28.1 % Low 35.0 - 47.0 % [facility] Interpretation and review of laboratory results Abnormal [facility] Hematocrit (Bld) [Volume fraction] 29 % Low 35.0 - 47.0 % [facility] Interpretation and review of laboratory results Abnormal [facility] Hematocrit (Bld) [Volume fraction] 27.1 % Low 35.0 - 47.0 % [facility] Interpretation and review of laboratory results Abnormal [facility] Laboratory - Chemistry and C hemistry - challengeon 06-27-2024 Glucose [Mass/Vol] 188 mg/dL High 70 - 100 mg/dL [facility] Glucose [Mass/Vol] 159 mg/dL High 70 - 100 mg/dL [facility] Glucose [Mass/Vol] 186 mg/dL High 70 - 100 mg/dL [facility] Glucose [Mass/Vol] 168 mg/dL High 70 - 100 mg/dL [facility] Magnesium [Mass/Vol] 2 mg/dL 1.6 - 2 .3 mg/dL [facility] Ammonia (P) [Moles/Vol] 48 umol/L High 9 - 30 umol/L [facility] Glucose [Mass/Vol] 195 mg/dL High 70 - 100 mg/dL [facility] Laboratory - Hematology and Cell countson 06-27-2024 Hemoglobin (Bld) [Mass/Vol] 8.7 g/dL Low 11.7 - 16.0 g/dL [facility] Hemoglobin (Bld) [Mass/Vol] 9 g/dL Low 11.7 - 16.0 g/dL [facility] Hemoglobin (Bld) [Mass/Vol] 9.3 g/dL Low 11.7 - 16.0 g/dL [facility] Anisocytosis Ql (Bld) Slight Abnormal (none) [facility] Lymphocytes (Bld) [#/Vol] 0.6 10*3/uL Low 1. 0 - 4.3 10*3/uL [facility] Lymphocytes/100 WBC (Bld) 5 % Low 15 - 45 % [facility] Monocytes (Bld) [#/Vol] 0.7 10*3/uL 0.0 - 0.9 10*3/uL [facility] Monocytes/100 WBC (Bld) 6 % 5 - 13 % [facility] Neutrophils (Bld) [#/Vol] 10.6 10*3/uL High 1. 8 - 7.5 10*3/uL [facility] Ovalocytes LM Ql (Bld) Slight Abnormal (none) [facility] Poikilocytosis LM Ql (Bld) Slight Abnormal (none) [facility] RBC morphology finding Nom (Bld) abnormal [facility] Segmented neutrophils/100 WBC (Bld) 89 % High 38 - 82 % [facility] Target cells LM Ql (Bld) Slight Abnormal (none) [facility] Hemoglobin (Bld) [Mass/Vol] 8.7 g/dL Low 11.7 - 16.0 g/dL [facility] MAGNESIUMon 06-27-2024 Magnesium [Mass/Vol] 2.0 mg/dL Normal 1.6-2.3 [facility] Comment on above: Performed By: #### L AB17, [id number], [id number] ####Claims Investigator: RUTH ANN BRAGG ([phone])[facility] ([facility])[address] [place] [address] MANUAL DIFFERENTIAL (CELLAVI KRISTIAN)on 06-27-2024 ANISOCYTOSIS PRESENCE IN BLOOD BY LIGHT MICROSCOPY Slight Abnormal (none) [facility] Comment on above: Performed By: #### L [id number], [id number] ####Claims Investigator: RUTH ANN BRAGG ([id number])[facility] ([facility])[address] BAND NEUTROPHILS TOTAL PER COUNTED LEUKOCYTES BY MANUAL COUNT Normal [facility] Comment on above: Performed By: #### L [id number], [id number] ####Claims Investigator: RUTH ANN BRAGG ([phone])[facility] [place] ([facility])[address] BASOPHILS TOTAL PER COUNTED LEUKOCYTES BY MANUAL COUNT [facility] Comment on above: Performed By: #### L [id number], [id number] ####Claims Investigator: RUTH ANN BRAGG ([phone])[facility] [place] ([facility])[address] BLASTS TOTAL PER COUNTED LEUKOCYTES BY MANUAL COUNT [facility] Comment on above: Performed By: #### L [id number], [id number] ####Claims Investigator: RUTH ANN BRAGG ([phone])[facility] [place] ([facility])[address] EOSINOPHILS TOTAL PER COUNTED LEUKOCYTES BY MANUAL COUNT [facility] Comment on above: Performed By: #### L [id number], [id number] ####Claims Investigator: RUTH ANN BRAGG ([phone])[facility] [place] ([facility])[address] [place] [address] [place] LYMPHOCYTES (10*3/UL) IN BLOOD-CELLAVISION 0.6 10*3/uL Low 1.0-4.3 [facility] Comment on above: Performed By: #### L [id number], [id number] ####Claims Investigator: RUTH ANN BRAGG ([id number])[facility] [place] ([facility])[address] [place] [address] [place] LYMPHOCYTES TOTAL PER COUNTED LEUKOCYTES BY MANUAL COUNT 5 Normal [facility] Comment on above: Performed By: #### L [id number], [id number] ####Claims Investigator: RUTH ANN BRAGG ([phone])[facility] [place] (SBHLAB)155 [place] [address] [place] LYMPHOCYTES/100 LEUKOCYTES IN BLOOD-CELLAVISION 5 % Low 15-45 [facility] Comment on above: Performed By: #### L [id number], [id number] ####Claims Investigator: RUTH ANN BRAGG ([id number])[facility] [place] ([facility])[address] [place] [address] [place] METAMYELOCYTES TOTAL PER COUNTED LEUKOCYTES BY MANUAL COUNT [facility] Comment on above: Performed By: #### L [id number], [id number] ####Claims Investigator: RUTH ANN BRAGG ([phone])[facility] [place] ([facility])[address] [place] [address] [place] MONOCYTES (10*3/UL) IN BLOOD-CELLAVISION 0.7 10*3/uL Normal 0.0-0.9 [facility] Comment on above: Performed By: #### L [id number], [id number] ####Claims Investigator: RUTH ANN BRAGG ([id number])[facility] [place] ([facility])[address] [place] [address] [place] MONOCYTES TOTAL PER COUNTED LEUKOCYTES BY MANUAL COUNT 6 Normal [facility] Comment on above: Performed By: #### L [id number], [id number] ####Claims Investigator: RUTH ANN BRAGG ([phone])[facility] [place] ([facility])[address] [place] [address] [place] MONOCYTES/100 LEUKOCYTES IN BLOOD-TOMMIE 6 % Normal 5-13 [facility] Comment on above: Performed By: #### L [id number], [id number] ####Claims Investigator: RUTH ANN BRAGG ([phone])[facility] [place] ([facility])[address] [place] [address] [place] MYELOCYTES COUNTED BY MANUAL COUNT [facility] Comment on above: Performed By: #### L [id number], [id number] ####Claims Investigator: RUTH ANN BRAGG ([phone])[facility] [place] (SB[facility])[address] NEUTROPHILS TOTAL PER COUNTED LEUKOCYTES BY MANUAL COUNT 89 Normal [facility] Comment on above: Performed By: #### L [id number], [id number] ####Claims Investigator: RUTH ANN BRAGG ([id number])[facility] (SB[facility])[address] OVALOCYTES PRESENCE IN BLOOD BY LIGHT MICROSCOPY Slight Abnormal (none) [facility] Comment on above: Performed By: #### L [id number], [id number] ####Claims Investigator: RUTH ANN BRAGG ([phone])[facility] (SBHLAB)[address] [place] [address] [place] POIKILOCYTOSIS (PRESENCE) IN BLOOD BY LIGHT MICROSCOPY Slight Abnormal (none) [facility] Comment on above: Performed By: #### L [id number], [id number] ####Claims Investigator: RUTH ANN BRAGG ([phone])[facility] [place] (HLAB)[address] [place] [address] [place] PROMYELOCYTES TOTAL PER COUNTED LEUKOCYTES BY MANUAL COUNT Normal [facility] Comment on above: Performed By: #### L [id number], [id number] ####Claims Investigator: RUTH ANN BRAGG ([id number])[facility] (SBHLAB)[address] [place] [address] [place] RBC MORPHOLOGY IN BLOOD abnormal Normal [facility] Comment on above: Performed By: #### L [id number], [id number] ####Claims Investigator: RUTH ANN BRAGG ([phone])[facility] (SBHLAB)[address] [place] [address] [place] SEGMENTED NEUTROPHILS (10*3/UL) IN BLOOD-CELLAVISION 10.6 10*3/uL High 1.8-7.5 [facility] Comment on above: Performed By: #### L [id number], [id number] ####Claims Investigator: RUTH ANN BRAGG ([id number])[facility] (SB[facility])[address] SEGMENTED NEUTROPHILS/100 LEUKOCYTES-CE 89 % High 38-82 [facility] Comment on above: Performed By: #### L [id number], [id number] ####Claims Investigator: RUTH ANN BRAGG ([id number])[facility] (SB[facility])[address] TARGET CELLS IN BLOOD BY LIGHT MICROSCOPY Slight Abnormal (none) [facility] Comment on above: Performed By: #### L [id number], [id number] ####Claims Investigator: RUTH ANN BRAGG ([id number])[facility] (SB[facility])[address] UNCLASSIFIED CELLS TOTAL PER COUNTED LEUKOCYTES BY MANUAL COUNT Normal [facility] Comment on above: Performed By: #### L [id number], [id number] ####Claims Investigator: RUTH ANN BRAGG ([id number])[facility] [place] (SB[facility])[address] VARIANT LYMPHOCYTES TOTAL PER COUNTED LEUKOCYTES BY MANUAL COUNT Normal [facility] Comment on above: Performed By: #### L [id number], [id number] ####Claims Investigator: RUTH ANN BRAGG ([id number])[facility] (SBHLAB)[address] No Panel Informationon 06-27 Interpretation and review of laboratory results Abnormal [facility] Interpretation and review of laboratory results Abnormal [facility] Interpretation and review of laboratory results Abnormal [facility] Interpretation and review of laboratory results Abnormal [facility] Interpretation and review of laboratory results Normal [facility] Lymphocytes Manual 5 [facility] Monocytes Manual 6 [facility] Neutrophils Manual 89 [facility] Interpretation and review of laboratory results Abnormal [facility] Interpretation and review of laboratory results Abnormal [facility] No Panel InformationOrdered By: Osiel White on 06-27-2024 Interpretation and review of laboratory results Abnormal [facility] PHOSPHORUSon 06-27-2024 Phosphate [Mass/Vol] 3.7 mg/dL Normal 2.5-4.5 [facility] Comment on above: Performed By: #### L [id number], [id number], [id number] ####Claims Investigator: RUTH ANN BRAGG ([id number])[facility] ([facility])[address] [place] [address] [place] Phosphate [Moles/Vol]on 06-09 Phosphate [Mass/Vol] 3.7 mg/dL 2.5 - 4 .5 mg/dL [facility] Progress Noteon 06-27-2024 Progress Note Normal [facility] Progress Note Normal [facility] 30on 06-26-2024 30 Normal [facility] [id number] 06-26-[id number] [facility] AMMONIAon 06-26-2024 Ammonia (P) [Moles/Vol] 134 umol/L High 9-30 [facility] Comment on above: Performed By: #### L [id number] ####Claims Investigator: RUTH ANN BRAGG ([id number])[facility] ([facility])[address] [place] [address] [place] BLOOD GAS ARTERIALon 024 Base excess Calc (Bld) [Moles/Vol] -2.4000 mmol/L Normal -3.0-3.0 [facility] Comment on above: Performed By: #### L [id number] ####Claims Investigator: RUTH ANN BRAGG ([id number])[facility] ([facility])[address] [place] [address] [place] CO2 [Moles/Vol] 21.5 mmol/L Low 22.0-28.0 [facility] Comment on above: Performed By: #### L [id number] ####Claims Investigator: RUTH ANN BRAGG ([phone])[facility] ([facility])[address] HCO3 (Bld) [Moles/Vol] 20.7 mmol/L Low 21.0-27.0 [facility] Comment on above: Performed By: #### L [id number] ####Claims Investigator: RUTH ANN BRAGG ([phone])[facility] [place] ([facility])[address] Hemoglobin (Bld) [Mass/Vol] 8.6 g/dL Low Screen only [facility] Comment on above: Performed By: #### L [id number] ####Claims Investigator: RUTH ANN BRAGG ([id number])[facility] (SB[facility])[address] OXYGEN SATURATION (%) IN ARTERIAL BLOOD 96.6 % Low 97.0-99.0 [facility] Comment on above: Performed By: #### L [id number] ####Claims Investigator: RUTH NAN BRAGG ([phone])[facility] (SB[facility])[address] PCO2 ARTERIAL 29.1 mm Hg Low 32.0-45.0 [facility] Comment on above: Performed By: #### L [id number] ####Claims Investigator: RUTH ANN BRAGG ([id number])[facility] ([facility])[address] PH ARTERIAL 7.469 High 7.350-7.450 [facility] Comment on above: Performed By: #### L [id number] ####Claims Investigator: RUTH ANN BRAGG ([phone])[facility] [place] ([facility])[address] PO2 ARTERIAL 97.0 mm Hg Normal 83.0-108.0 [facility] Comment on above: Performed By: #### L [id number] ####Claims Investigator: RUTH ANN BRAGG ([id number])[facility] (SBHLAB)[address] SOURCE OF OXYGEN Room Air Normal [facility] Comment on above: Performed By: #### L [id number] ####Claims Investigator: RUTH ANN BRAGG ([id number])[facility] ([facility])[address] [place] [address] BLOOD TYPE AND SCREEN GELon 06-26-2024 ABO GROUPING O Normal [facility] Comment on above: Performed By: #### L [id number] ####Claims Investigator: RUTH ANN BRAGG ([phone])[facility] ([facility])[address] RH TYPE IN BLOOD Positive Normal [facility] Comment on above: Performed By: #### L [id number] ####Claims Investigator: RUTH ANN BRAGG ([id number])[facility] BLOOD [facility] ([facility])[address] [place] [address] Blood type and Crossmatch pa maryann (Bld)on 06-26-2024 ABO group Nom (Bld) O [facility] Blood group antibody screen GEL Ql Negative [facility] D Ag Ql (RBC) [facility] CBC (HEMOGRAM)on 06-26-2024 Erythrocyte distribution width (RBC) [Ratio] 15.0 % Normal 11.5-15.0 [facility] Comment on above: Performed By: #### L [id number] ####Claims Investigator: RUTH ANN BRAGG ([id number])[facility] ([facility])[address] [place] [address] Hematocrit (Bld) [Volume fraction] 27.2 % Low 35.0-47.0 [facility] Comment on above: Performed By: #### L [id number] ####Claims Investigator: RUTH ANN BRAGG ([id number])[facility] ([facility])[address] [place] [address] Hemoglobin (Bld) [Mass/Vol] 8.5 g/dL Low 11.7-16.0 [facility] Comment on above: Performed By: #### L [id number] ####Claims Investigator: RUTH ANN BRAGG ([id number])[facility] [place] (SBHLAB)[address] MCH (RBC) [Entitic mass] 31.5 pg Normal 26.0-34.0 [facility] Comment on above: Performed By: #### L [id number] ####Claims Investigator: RUTH ANN BRAGG ([id number])[facility] [place] (SBHLAB)[address] MCHC 31.3 % Normal 30.5-36.0 [facility] Comment on above: Performed By: #### L [id number] ####Claims Investigator: RUTH ANN BRAGG ([id number])[facility] [place] (SBHLAB)[address] MCV (RBC) [Entitic vol] 100.7 fL High 77.0-99.0 [facility] Comment on above: Performed By: #### L [id number] ####Claims Investigator: RUTH ANN BRAGG ([id number])[facility] [place] ([facility])[address] Platelet mean volume (Bld) [Entitic vol] 11.1 fL Normal 9.0-12.7 [facility] Comment on above: Performed By: #### L [id number] ####Claims Investigator: RUTH ANN BRAGG ([id number])[facility] [place] ([facility])[address] [place] [address] [place] Platelets (Bld) [#/Vol] 127 10*3/uL Low 140-[address] [facility] Comment on above: Performed By: #### L [id number] ####Claims Investigator: RUTH ANN BRAGG ([id number])[facility] [place] ([facility])[address] [place] [address] [place] RBC (Bld) [#/Vol] 2.70 10*6/uL Low 3.80-5.[address] [facility] Comment on above: Performed By: #### L [id number] ####Claims Investigator: RUTH ANN BRAGG ([id number])[facility] (SB[facility])[address] WBC (Bld) [#/Vol] 7.9 10*3/uL Normal 3.6-10.7 [facility] Comment on above: Performed By: #### L [id number] ####Claims Investigator: RUTH ANN BRAGG ([id number])[facility] ([facility])[address] CBC W Auto Differential pane l (Bld)on 06-26-2024 Basophils (Bld) [#/Vol] 0 10*3/uL 0.0 - 0.2 10*3/uL [facility] Basophils/100 WBC (Bld) 0.5 % 0.0 - 2.0 % [facility] Eosinophils (Bld) [#/Vol] 0 10*3/uL 0. 0 - 0.5 10*3/uL [facility] Eosinophils/100 WBC (Bld) 0.2 % 0.0 - 6.0 % [facility] Erythrocyte distribution width (RBC) [Ratio] 14.6 % 11.5 - 15.0 % [facility] Hematocrit (Bld) [Volume fraction] 25.3 % Low 35.0 - 47.0 % [facility] Hemoglobin (Bld) [Mass/Vol] 7.9 g/dL Low 11.7 - 16.0 g/dL [facility] Immature granulocytes (Bld) [#/Vol] 0 10*3/uL NINF - 0.1 10*3/uL [facility] Immature granulocytes/100 WBC (Bld) 0.5 % 0.0 - 2.0 % [facility] Interpretation and review of laboratory results Abnormal [facility] th IPF 3 [facility] Lymphocytes (Bld) [#/Vol] 0.8 10*3/uL Low 1. 0 - 4.3 10*3/uL [facility] Lymphocytes/100 WBC (Bld) 12.7 % Low 15 .0 - 45.0 % [facility] MCH (RBC) [Entitic mass] 30.3 pg 26. 0 - 34.0 pg [facility] MCHC (RBC) [Mass/Vol] 31.2 % 30.5 - 36.0 % [facility] MCV (RBC) [Entitic vol] 96.9 fL 77.0 - 99.0 fL [facility] Monocytes (Bld) [#/Vol] 0.8 10*3/uL 0.0 - 0.9 10*3/uL [facility] Monocytes/100 WBC (Bld) 12.7 % 5.0 - 13.0 % [facility] Neutrophils (Bld) [#/Vol] 4.9 10*3/uL 1. 8 - 7.5 10*3/uL [facility] Neutrophils/100 WBC (Bld) 73.4 % 38 .0 - 82.0 % [facility] Nucleated RBC/100 WBC (Bld) [Ratio] 0 % [facility] Platelet mean volume (Bld) [Entitic vol] 11.2 fL 9.0 - 12.7 fL [facility] Platelets (Bld) [#/Vol] 106 10*3/uL Low 140 - 440 10*3/uL [facility] RBC (Bld) [#/Vol] 2.61 10*6/uL Low 3.80 - 5.2 0 10*6/uL [facility] WBC (Bld) [#/Vol] 6.6 10*3/uL 3.6 - 10.7 10*3/uL [facility] CBC WITH AUTO DIFFERENTIALon 06-26-2024 Basophils (Bld) [#/Vol] 0.0 10*3/uL Normal 0.0-0.[address] [facility] Comment on above: Performed By: #### L [id number] ####Claims Investigator: RUTH ANN BRAGG ([id number])[facility] ([facility])[address] [place] [address] Basophils/100 WBC (Bld) 0.5 % Normal 0.0-2.0 [facility] Comment on above: Performed By: #### L [id number] ####Claims Investigator: RUTH ANN BRAGG ([id number])[facility] ([facility])[address] [place] [address] Eosinophils (Bld) [#/Vol] 0.0 10*3/uL Normal 0.0-0.[address] [facility] Comment on above: Performed By: #### L [id number] ####Claims Investigator: RUTH ANN HERRONSHEL[place] ([id number])[facility] ([facility])[address] [place] [address] Eosinophils/100 WBC (Bld) 0.2 % Normal 0.0-6.0 [facility] Comment on above: Performed By: #### L [id number] ####Claims Investigator: RUTH ANN BRAGG ([phone])[facility] Erythrocyte distribution width (RBC) [Ratio] 14.6 % Normal 11.5-15.[address] [facility] Comment on above: Performed By: #### L [id number] ####Claims Investigator: RUTH ANN HERRONSHEL[place] ([id number])[facility] ([facility])[address] [place] [address] Hematocrit (Bld) [Volume fraction] 25.3 % Low 35.0-47.[address] [facility] Comment on above: Performed By: #### L [id number] ####Claims Investigator: RUTH ANN HERRONSHEL[place] ([id number])[facility])[address] [place] [address] Hemoglobin (Bld) [Mass/Vol] 7.9 g/dL Low 11.7-16.[address] [facility] Comment on above: Performed By: #### L [id number] ####Claims Investigator: RUTH ANN BRAGG ([id number])[facility] IMMATURE GRANS % 0.5 % Normal 0.0-2.0 [facility] Comment on above: Performed By: #### L [id number] ####Claims Investigator: RUTH ANN BRAGG ([phone])[facility] IMMATURE GRANS ABSOLUTE 0.0 10*3/uL Normal <0.[address] [facility] Comment on above: Performed By: #### L [id number] ####Claims Investigator: RUTH ANN BRAGG ([id number])[facility] ([facility])[address] IPF [address] [facility] Comment on above: Performed By: #### L [id number] ####Claims Investigator: RUTH ANN BRAGG ([id number])[facility] [place] ([facility])[address] Lymphocytes (Bld) [#/Vol] 0.8 10*3/uL Low 1.0-4.[address] [facility] Comment on above: Performed By: #### L [id number] ####Claims Investigator: RUTH ANN BRAGG ([id number])[facility] [place] ([facility])[address] Lymphocytes/100 WBC (Bld) 12.7 % Low 15.0-45.[address] [facility] Comment on above: Performed By: #### L [id number] ####Claims Investigator: RUTH ANN BRAGG ([id number])[facility] [place] ([facility])[address] MCH (RBC) [Entitic mass] 30.3 pg Normal 26.0-34.[address] [facility] Comment on above: Performed By: #### L [id number] ####Claims Investigator: RUTH ANN BRAGG ([id number])[facility] ([facility])[address] MCHC 31.2 % Normal 30.5-36.[address] [facility] Comment on above: Performed By: #### L [id number] ####Claims Investigator: RUTH ANN BRAGG ([id number])[facility] ([facility])[address] MCV (RBC) [Entitic vol] 96.9 fL Normal 77.0-99.0 [facility] Comment on above: Performed By: #### L [id number] ####Claims Investigator: RUTH ANN BRAGG ([id number])[facility] [place] ([facility])[address] Monocytes (Bld) [#/Vol] 0.8 10*3/uL Normal 0.0-0.9 [facility] Comment on above: Performed By: #### L [id number] ####Claims Investigator: RUTH ANN BRAGG ([id number])[facility] [place] ([facility])[address] Monocytes/100 WBC (Bld) 12.7 % Normal 5.0-13.0 [facility] Comment on above: Performed By: #### L [id number] ####Claims Investigator: RUTH ANN BRAGG ([id number])[facility] [place] ([facility])[address] NEUTROPHILS ABSOLUTE 4.9 10*3/uL Normal 1.8-7.5 [facility] Comment on above: Performed By: #### L [id number] ####Claims Investigator: RUTH ANN BRAGG ([id number])[facility] [place] ([facility])[address] Neutrophils/100 WBC (Bld) 73.4 % Normal 38.0-82.[address] [facility] Comment on above: Performed By: #### L [id number] ####Claims Investigator: RUTH ANN BRAGG ([id number])[facility] [place] ([facility])[address] NRBC 0.0 /100 WBCs Normal 0.0-2.0 [facility] Comment on above: Performed By: #### L [id number] ####Claims Investigator: RUTH ANN BRAGG ([id number])[facility] [place] ([facility])[address] Platelet mean volume (Bld) [Entitic vol] 11.2 fL Normal 9.0-12.[address] [facility] Comment on above: Performed By: #### L [id number] ####Claims Investigator: RUTH ANN BRAGG ([id number])[facility] [place] ([facility])[address] Platelets (Bld) [#/Vol] 106 10*3/uL Low 140-440 [facility] Comment on above: Performed By: #### L [id number] ####Claims Investigator: RUTH ANN BRAGG ([id number])[facility]FIELDR[facility] ([facility])[address] RBC (Bld) [#/Vol] 2.61 10*6/uL Low 3.80-5.20 [facility] Comment on above: Performed By: #### L [id number] ####Claims Investigator: RUTH ANN BRAGG ([phone])[facility]EL[facility] [place] [address] WBC (Bld) [#/Vol] 6.6 10*3/uL Normal 3.6-10.7 [facility] Comment on above: Performed By: #### L [id number] ####Claims Investigator: RUTH ANN BRAGG ([id number])[facility]EL[facility] [place] ([facility])[address] [place] [address] CBC panel Auto (Bld)on 06-26 Erythrocyte distribution width (RBC) [Ratio] 15 % 11.5 - 15.0 % [facility] Hematocrit (Bld) [Volume fraction] 27.2 % Low 35.0 - 47.0 % [facility] Hemoglobin (Bld) [Mass/Vol] 8.5 g/dL Low 11.7 - 16.0 g/dL [facility] Interpretation and review of laboratory results Abnormal [facility] MCH (RBC) [Entitic mass] 31.5 pg 26. 0 - 34.0 pg [facility] MCHC (RBC) [Mass/Vol] 31.3 % 30.5 - 36.0 % [facility] MCV (RBC) [Entitic vol] 100.7 fL High 77.0 - 99.0 fL [facility] Platelet mean volume (Bld) [Entitic vol] 11.1 fL 9.0 - 12.7 fL [facility] Platelets (Bld) [#/Vol] 127 10*3/uL Low 140 - 440 10*3/uL [facility] RBC (Bld) [#/Vol] 2.7 10*6/uL Low 3.80 - 5.2 0 10*6/uL [facility] WBC (Bld) [#/Vol] 7.9 10*3/uL 3.6 - 10.7 10*3/uL [facility] COMPREHENSIVE METABOLIC PANE Smith 06-26-2024 Albumin [Mass/Vol] 3.0 g/dL Low 3.5-5.0 [facility] Comment on above: Performed By: #### L [id number] ####Claims Investigator: RUTH ANN BRAGG ([id number])[facility] [place] ([facility])[address] ALP [Catalytic activity/Vol] 74 U/L Normal 38-126 [facility] Comment on above: Performed By: #### L AB17 ####Claims Investigator: RUTH ANN BRAGG ([id number])[facility] ([facility])[address] ALT [Catalytic activity/Vol] 21 U/L Normal 0-34 [facility] Comment on above: Performed By: #### L AB17 ####Claims Investigator: RUTH ANN BRAGG ([id number])[facility] ([facility])[address] Anion gap [Moles/Vol] 7 mmol/L Normal 3-13 [facility] Comment on above: Performed By: #### L AB17 ####Claims Investigator: RUTH ANN BRAGG ([id number])[facility] [place] ([facility])155 [place] [address] [place] AST [Catalytic activity/Vol] 44 U/L Normal 15-46 [facility] Comment on above: Performed By: #### L AB17 ####Claims Investigator: RUTH ANN BRAGG ([id number])[facility] [place] ([facility])[address] Bilirubin [Mass/Vol] 0.8 mg/dL Normal 0.2-1.3 [facility] Comment on above: Performed By: #### L AB17 ####Claims Investigator: RTUH ANN BRAGG ([id number])[facility] [place] ([facility])[address] Calcium [Mass/Vol] 9.4 mg/dL Normal 8.4-10.4 [facility] Comment on above: Performed By: #### L AB17 ####Claims Investigator: RUTH ANN BRAGG ([id number])[facility] [place] ([facility])[address] Chloride [Moles/Vol] 117 mmol/L High 98-107 [facility] Comment on above: Performed By: #### L AB17 ####Claims Investigator: RUTH ANN BRAGG ([id number])[facility] [place] ([facility])[address] CO2 [Moles/Vol] 18 mmol/L Low 22-30 [facility] Comment on above: Performed By: #### L AB17 ####Claims Investigator: RUTH ANN BRAGG ([id number])[facility] [place] ([facility])[address] Creatinine [Mass/Vol] 1.34 mg/dL High 0.52-1.04 [facility] Comment on above: Performed By: #### L AB17 ####Claims Investigator: RUTH ANN BRAGG ([id number])[facility] [place] ([facility])[address] GLOMERULAR FILTRATION RATE ML/MIN/1.73 SQ M.PREDICTED 40.7 mL/min/1.73m*2 Low >60.0 [facility] Comment on above: Result Comment: Calc ulation based on the Chronic Kidney Disease Epidemiology Collaboration (CKD-EPI) equation refit without adjustment for race Performed By: #### L AB17 ####Claims Investigator: RUTH ANN BRAGG ([id number])[facility] [place] ([facility])[address] [place] [address] [place] Glucose [Mass/Vol] 156 mg/dL High 70-100 [facility] Comment on above: Performed By: #### L AB17 ####Claims Investigator: RUTH ANN BRAGG ([id number])[facility] (SBHLAB)[address] Potassium [Moles/Vol] 3.8 mmol/L Normal 3.5-5.1 [facility] Comment on above: Performed By: #### L [id number] ####Claims Investigator: RUTH ANN BRAGG ([id number])[facility] ([facility])[address] Protein [Mass/Vol] 6.1 g/dL Low 6.3-8.2 [facility] Comment on above: Performed By: #### L AB17 ####Claims Investigator: RUTH ANN BRAGG ([id number])[facility] (SBHLAB)[address] Sodium [Moles/Vol] 142 mmol/L Normal 135-[address] [facility] Comment on above: Performed By: #### L [id number] ####Claims Investigator: RUTH ANN BRAGG ([id number])[facility] [place] (SBHLAB)[address] Urea nitrogen [Mass/Vol] 42 mg/dL High 7-[address] [facility] Comment on above: Performed By: #### L AB17 ####Claims Investigator: RUTH ANN BRAGG ([id number])[facility] (SBHLAB)[address] Albumin [Mass/Vol] 3.2 g/dL Low 3.5-5.[address] [facility] Comment on above: Performed By: #### L [id number] ####Claims Investigator: RUTH ANN BRAGG ([id number])[facility] (SBHLAB)[address] ALP [Catalytic activity/Vol] 74 U/L Normal 38-126 [facility] Comment on above: Performed By: #### L [id number] ####Claims Investigator: RUTH ANN BRAGG ([id number])[facility] (SBHLAB)[address] ALT [Catalytic activity/Vol] 21 U/L Normal 0-34 [facility] Comment on above: Performed By: #### L AB17 ####Claims Investigator: RUTH ANN BRAGG ([id number])[facility] [place] (SBHLAB)[address] Anion gap [Moles/Vol] 7 mmol/L Normal 3-13 [facility] Comment on above: Performed By: #### L AB17 ####Claims Investigator: RUTH ANN BRAGG ([id number])[facility] [place] ([facility])[address] AST [Catalytic activity/Vol] 43 U/L Normal 15-46 [facility] Comment on above: Performed By: #### L AB17 ####Claims Investigator: RUTH ANN BRAGG ([id number])[facility] [place] ([facility])[address] Bilirubin [Mass/Vol] 0.8 mg/dL Normal 0.2-1.3 [facility] Comment on above: Performed By: #### L AB17 ####Claims Investigator: RUTH ANN BRAGG ([id number])[facility] [place] ([facility])[address] Calcium [Mass/Vol] 9.4 mg/dL Normal 8.4-10.4 [facility] Comment on above: Performed By: #### L AB17 ####Claims Investigator: RUTH ANN BRAGG ([id number])[facility] [place] (SB[facility])[address] [place] [address] [place] Chloride [Moles/Vol] 116 mmol/L High 98-107 [facility] Comment on above: Performed By: #### L AB17 ####Claims Investigator: RUTH ANN BRAGG ([id number])[facility] [place] ([facility])[address] CO2 [Moles/Vol] 19 mmol/L Low 22-30 [facility] Comment on above: Performed By: #### L AB17 ####Claims Investigator: RUTH ANN BRAGG ([id number])[facility] SANDERS[facility]mi (SBHLAB)[address] Creatinine [Mass/Vol] 1.39 mg/dL High 0.52-1.04 [facility] Comment on above: Performed By: #### L AB17 ####Claims Investigator: RUTH ANN BRAGG ([id number])[facility] (SBHLAB)[address] GLOMERULAR FILTRATION RATE ML/MIN/1.73 SQ M.PREDICTED 38.9 mL/min/1.73m*2 Low >60.0 [facility] Comment on above: Result Comment: Calc ulation based on the Chronic Kidney Disease Epidemiology Collaboration (CKD-EPI) equation refit without adjustment for race Performed By: #### L AB17 ####Claims Investigator: RUTH ANN BRAGG ([id number])[facility] MONTGOMERYMARGARETN (SBHLAB)[address] Glucose [Mass/Vol] 155 mg/dL High 70-100 [facility] Comment on above: Performed By: #### L AB17 ####Claims Investigator: RUTH ANN BRAGG ([id number])[facility] BAR[facility] (SBHLAB)[address] Potassium [Moles/Vol] 3.9 mmol/L Normal 3.5-5.1 [facility] Comment on above: Performed By: #### L AB17 ####Claims Investigator: RUTH ANN BRAGG ([id number])[facility] (SB[facility]AB)[address] Protein [Mass/Vol] 6.3 g/dL Normal 6.3-8.2 [facility] Comment on above: Performed By: #### L AB17 ####Claims Investigator: RUTH ANN BRAGG ([id number])[facility] [place] (SBHLAB)[address] Sodium [Moles/Vol] 142 mmol/L Normal 135-145 [facility] Comment on above: Performed By: #### L AB17 ####Claims Investigator: RUTH ANN BRAGG ([id number])[facility] [place] (SBHLAB)[address] Urea nitrogen [Mass/Vol] 42 mg/dL High 7-17 [facility] Comment on above: Performed By: #### L AB17 ####Claims Investigator: RUTH ANN BRAGG ([id number])[facility] [place] (SBHLAB)[address] ABDOMEN PELVIS WO IV CONT RASTon 06-26-2024 CT ABDOMEN PELVIS WO IV CONTRAST Normal [facility] CT Abdomen and Pelvis WO con traston 06-26-2024 [facility] Radiology Study observation (narrative[facility] Abdomen and Pelvis WO con trastOrdered By: Lynda Garcia on 06-26-2024 [facility] Work Phone: CT HEAD WO IV CONTRASTon CT HEAD WO IV CONTRAST Normal [facility] Head WO contraston 2023 [facility] Radiology Study observation (narrative) Marya Rosas alth CT Head WO contrastOrdered B y: Tracey Fernando on 06-26-2024 [facility] Work Phone: Comprehensive metabolic 1998 panelon 06-26-2024 Albumin [Mass/Vol] 3 g/dL Low 3.5 - 5.0 g/dL [facility] ALP [Catalytic activity/Vol] 74 U/L 38 - 126 U/L [facility] ALT [Catalytic activity/Vol] 21 U/L 0 - 34 U/L [facility] Anion gap [Moles/Vol] 7 mmol/L 3 - 13 mmol/L [facility] AST [Catalytic activity/Vol] 44 U/L 15 - 46 U/L [facility] Bilirubin [Mass/Vol] 0.8 mg/dL 0.2 - 1 .3 mg/dL [facility] Calcium [Mass/Vol] 9.4 mg/dL 8.4 - 10. 4 mg/dL [facility] Chloride [Moles/Vol] 117 mmol/L High 98 - 10 7 mmol/L [facility] CO2 [Moles/Vol] 18 mmol/L Low 22 - 30 mmol/L [facility] Creatinine [Mass/Vol] 1.34 mg/dL High 0.52 - 1.04 mg/dL [facility] GFR/1.73 sq M.predicted (S/P/Bld) [Vol rate/Area] 40.7 mL/min Low - PINF [facility] Glucose [Mass/Vol] 156 mg/dL High 70 - 100 mg/dL [facility] Interpretation and review of laboratory results Abnormal [facility] th Potassium [Moles/Vol] 3.8 mmol/L 3.5 - 5.1 mmol/L [facility] Protein [Mass/Vol] 6.1 g/dL Low 6.3 - 8.2 g/dL [facility] Sodium [Moles/Vol] 142 mmol/L 135 - 145 mmol/L [facility] Urea nitrogen [Mass/Vol] 42 mg/dL High 7 - 17 mg/dL [facility] Albumin [Mass/Vol] 3.2 g/dL Low 3.5 - 5.0 g/dL [facility] ALP [Catalytic activity/Vol] 74 U/L 38 - 126 U/L [facility] ALT [Catalytic activity/Vol] 21 U/L 0 - 34 U/L [facility] Anion gap [Moles/Vol] 7 mmol/L 3 - 13 mmol/L [facility] AST [Catalytic activity/Vol] 43 U/L 15 - 46 U/L [facility] Bilirubin [Mass/Vol] 0.8 mg/dL 0.2 - 1 .3 mg/dL [facility] Calcium [Mass/Vol] 9.4 mg/dL 8.4 - 10. 4 mg/dL [facility] Chloride [Moles/Vol] 116 mmol/L High 98 - 10 7 mmol/L [facility] CO2 [Moles/Vol] 19 mmol/L Low 22 - 30 mmol/L [facility] Creatinine [Mass/Vol] 1.39 mg/dL High 0.52 - 1.04 mg/dL [facility] GFR/1.73 sq M.predicted (S/P/Bld) [Vol rate/Area] 38.9 mL/min Low - PINF [facility] Glucose [Mass/Vol] 155 mg/dL High 70 - 100 mg/dL [facility] Interpretation and review of laboratory results Abnormal [facility] Potassium [Moles/Vol] 3.9 mmol/L 3.5 - 5.1 mmol/L [facility] Protein [Mass/Vol] 6.3 g/dL 6.3 - 8.2 g/dL [facility] Sodium [Moles/Vol] 142 mmol/L 135 - 145 mmol/L [facility] Urea nitrogen [Mass/Vol] 42 mg/dL High 7 - 17 mg/dL [facility] Consulton 06-26-2024 Consult Normal [facility] Consult Normal [facility] HEMOGLOBIN AND HEMATOCRIT, B LOODon 06-26-2024 Hematocrit (Bld) [Volume fraction] 24.6 % Low 35.0-47.0 [facility] Comment on above: Performed By: #### L [id number] ####Claims Investigator: RUTH ANN BRAGG ([id number])[facility] ([facility])[address] [place] [address] Hemoglobin (Bld) [Mass/Vol] 7.9 g/dL Low 11.7-16.0 [facility] Comment on above: Performed By: #### L [id number] ####Claims Investigator: RUTH ANN BRAGG ([id number])[facility] ([facility])[address] [place] [address] Hematocrit (Bld) [Volume fraction] 25.7 % Low 35.0-47.0 [facility] Comment on above: Performed By: #### L [id number] ####Claims Investigator: RUTH ANN BRAGG ([id number])[facility] ([facility])[address] [place] [address] Hemoglobin (Bld) [Mass/Vol] 8.1 g/dL Low 11.7-16.0 [facility] Comment on above: Performed By: #### L [id number] ####Claims Investigator: RUTH ANN BRAGG ([id number])[facility] (SBHLAB)[address] Hematocrit (Bld) [Volume fraction] 27.2 % Low 35.0-47.0 [facility] Comment on above: Performed By: #### L [id number] ####Claims Investigator: RUTH ANN BRAGG ([id number])[facility] (SBHLAB)[address] Hemoglobin (Bld) [Mass/Vol] 8.5 g/dL Low 11.7-16.0 [facility] Comment on above: Performed By: #### L [id number] ####Claims Investigator: RUTH ANN BRAGG ([id number])[facility] ([facility])[address] [place] [address] Hemoglobin (Bld) [Mass/Vol]o n 06-26-2024 Hematocrit (Bld) [Volume fraction] 24.6 % Low 35.0 - 47.0 % [facility] Interpretation and review of laboratory results Abnormal [facility] Hematocrit (Bld) [Volume fraction] 25.7 % Low 35.0 - 47.0 % [facility] Interpretation and review of laboratory results Abnormal [facility] Hematocrit (Bld) [Volume fraction] 27.2 % Low 35.0 - 47.0 % [facility] Interpretation and review of laboratory results Abnormal [facility] Laboratory - Chemistry and C hemistry - challengeon 06-26-2024 Glucose [Mass/Vol] 191 mg/dL High 70 - 100 mg/dL [facility] Glucose [Mass/Vol] 189 mg/dL High 70 - 100 mg/dL [facility] Ammonia (P) [Moles/Vol] 134 umol/L High 9 - 30 umol/L [facility] Glucose [Mass/Vol] 169 mg/dL High 70 - 100 mg/dL [facility] Troponin I.cardiac [Mass/Vol] 0.042 ng/mL High NINF - 0.034 ng/mL [facility] Laboratory - Chemistry and C hemistry - challengeOrdered By: Sara Cano on 06-26-2024 Base excess Calc (Bld) [Moles/Vol] -2.4000 mmol/L -3.0 - 3.0 mmol/L [facility] CO2 (Bld) [Partial pressure] 29.1 mm[Hg] Low [facility] CO2 [Moles/Vol] 21.5 mmol/L Low 22.0 - 28.0 mmol/L [facility] HCO3 (Bld) [Moles/Vol] 20.7 mmol/L Low 21.0 - 27.0 mmol/L [facility] Oxygen (Bld) [Partial pressure] 97 mm[Hg] [facility] pH (Bld) 7.469 [pH] High 7.350 - 7.450 [facility] Laboratory - Hematology and Cell countson 06-26-2024 Hemoglobin (Bld) [Mass/Vol] 7.9 g/dL Low 11.7 - 16.0 g/dL [facility] Hemoglobin (Bld) [Mass/Vol] 8.1 g/dL Low 11.7 - 16.0 g/dL [facility] Hemoglobin (Bld) [Mass/Vol] 8.5 g/dL Low 11.7 - 16.0 g/dL [facility] Laboratory - Hematology and Cell countsOrdered By: Sara Cano on 06-26-2024 Hemoglobin (Bld) [Mass/Vol] 8.6 g/dL Low Screen only [facility] Lower GI hemoglobin spec 1 I A Ql (Stl)Ordered By: Ovidio Carson on 06-26-2024 Fecal occult blood Positive Abnormal Negative [facility] Interpretation and review of laboratory results Abnormal [facility] No Panel Informationon 06-26 Blood Expiration Date [id number] [facility] Crossmatch interpretation COMP [facility] Dispense Status Transfused [facility] Product Blood Type 5100 [facility] PRODUCT CODE [id number] [facility] ABO O [facility] Number [id number]-* [facility] Unit RH Positive [facility] Unit Volume 300 mL [facility] Interpretation and review of laboratory results Abnormal [facility] Interpretation and review of laboratory results Abnormal [facility] Interpretation and review of laboratory results Abnormal [facility] Interpretation and review of laboratory results Abnormal [facility] No Panel InformationOrdered By: Sara Cano on 06-26-2024 Interpretation and review of laboratory results [facility] Room Air Marya Rosas alth [facility] Progress Noteon 06-26-2024 Progress Note [facility] Progress Note Normal [facility] Progress Note Normal [facility] Progress Note Normal [facility] Troponin I.cardiac [Mass/Vol ]on 06-26-2024 Interpretation and review of laboratory results Abnormal [facility] th [facility] XR ABDOMEN 1 VIEWon 06-26-20 XR ABDOMEN 1 VIEW Normal [facility] XR Abdomen Single viewon [facility] RADIOLOGY [facility] Radiology Study observation (narrative) Marya Rosas alth XR CHEST 1 VIEWon 06-26-2024 XR CHEST [facility] Chest Single viewon 06-26 [facility] RADIOLOGY SYSTEM [facility] RADIOLOGY SYSTEM [facility] Radiology Study observation (narrative) Marya Rosas alth CBC W Auto Differential pane l (Bld)on 06-25-2024 Basophils (Bld) [#/Vol] 0.1 10*3/uL 0.0 - 0.2 10*3/uL [facility] Basophils/100 WBC (Bld) 0.9 % 0.0 - 2.0 % [facility] Eosinophils (Bld) [#/Vol] 0.1 10*3/uL 0. 0 - 0.5 10*3/uL [facility] Eosinophils/100 WBC (Bld) 2 % 0.0 - 6.0 % [facility] Erythrocyte distribution width (RBC) [Ratio] 14.6 % 11.5 - 15.0 % [facility] Hematocrit (Bld) [Volume fraction] 27.7 % Low 35.0 - 47.0 % [facility] Hemoglobin (Bld) [Mass/Vol] 9 g/dL Low 11.7 - 16.0 g/dL [facility] Immature granulocytes (Bld) [#/Vol] 0 10*3/uL NINF - 0.1 10*3/uL [facility] Immature granulocytes/100 WBC (Bld) 0.2 % 0.0 - 2.0 % [facility] Interpretation and review of laboratory results Abnormal [facility] th Lymphocytes (Bld) [#/Vol] 0.9 10*3/uL Low 1. 0 - 4.3 10*3/uL [facility] Lymphocytes/100 WBC (Bld) 15.8 % 15 .0 - 45.0 % [facility] MCH (RBC) [Entitic mass] 31.1 pg 26. 0 - 34.0 pg [facility] MCHC (RBC) [Mass/Vol] 32.5 % 30.5 - 36.0 % [facility] MCV (RBC) [Entitic vol] 95.8 fL 77.0 - 99.0 fL [facility] Monocytes (Bld) [#/Vol] 0.9 10*3/uL 0.0 - 0.9 10*3/uL [facility] Monocytes/100 WBC (Bld) 15.4 % High 5.0 - 13.0 % [facility] Neutrophils (Bld) [#/Vol] 3.6 10*3/uL 1. 8 - 7.5 10*3/uL [facility] Neutrophils/100 WBC (Bld) 65.7 % 38 .0 - 82.0 % [facility] Nucleated RBC/100 WBC (Bld) [Ratio] 0 % [facility] Platelet mean volume (Bld) [Entitic vol] 11.2 fL 9.0 - 12.7 fL [facility] Platelets (Bld) [#/Vol] 119 10*3/uL Low 140 - 440 10*3/uL [facility] RBC (Bld) [#/Vol] 2.89 10*6/uL Low 3.80 - 5.2 0 10*6/uL [facility] WBC (Bld) [#/Vol] 5.5 10*3/uL 3.6 - 10.7 10*3/uL [facility] CBC WITH AUTO DIFFERENTIALon 06-25-2024 Basophils (Bld) [#/Vol] 0.1 10*3/uL Normal 0.0-0.2 [facility] Comment on above: Performed By: #### L [id number] ####Claims Investigator: RUTH ANN BRAGG ([id number])[facility] ([facility])[address] [place] [address] Basophils/100 WBC (Bld) 0.9 % Normal 0.0-2.0 [facility] Comment on above: Performed By: #### L [id number] ####Claims Investigator: RUTH ANN BRAGG ([id number])[facility] (SBHL[facility])[address] Eosinophils (Bld) [#/Vol] 0.1 10*3/uL Normal 0.0-0.5 [facility] Comment on above: Performed By: #### L [id number] ####Claims Investigator: RUTH ANN BRAGG ([id number])[facility] [place] ([facility])[address] Eosinophils/100 WBC (Bld) 2.0 % Normal 0.0-6.0 [facility] Comment on above: Performed By: #### L [id number] ####Claims Investigator: RUTH ANN BRAGG ([id number])[facility] [place] ([facility])[address] Erythrocyte distribution width (RBC) [Ratio] 14.6 % Normal 11.5-15.[address] [facility] Comment on above: Performed By: #### L [id number] ####Claims Investigator: RUTH ANN BRAGG ([id number])[facility] [place] ([facility])[address] [place] [address] Hematocrit (Bld) [Volume fraction] 27.7 % Low 35.0-47.0 [facility] Comment on above: Performed By: #### L [id number] ####Claims Investigator: RUTH ANN BRAGG ([id number])[facility] [place] ([facility])[address] Hemoglobin (Bld) [Mass/Vol] 9.0 g/dL Low 11.7-16.[address] [facility] Comment on above: Performed By: #### L [id number] ####Claims Investigator: RUTH ANN BRAGG ([id number])[facility] [place] ([facility])[address] IMMATURE GRANS % 0.2 % Normal 0.0-2.0 [facility] Comment on above: Performed By: #### L [id number] ####Claims Investigator: RUTH ANN HERRONSHELTON ([id number])[facility] [place] ([facility])[address] IMMATURE GRANS ABSOLUTE 0.0 10*3/uL Normal <0.[address] [facility] Comment on above: Performed By: #### L [id number] ####Claims Investigator: RUTH ANN BRAGG ([id number])[facility] [place] ([facility])[address] Lymphocytes (Bld) [#/Vol] 0.9 10*3/uL Low 1.0-4.[address] [facility] Comment on above: Performed By: #### L [id number] ####Claims Investigator: RUTH ANN BRAGG ([id number])[facility] ([facility])[address] Lymphocytes/100 WBC (Bld) 15.8 % Normal 15.0-45.[address] [facility] Comment on above: Performed By: #### L [id number] ####Claims Investigator: RUTH ANN BRAGG ([id number])[facility] ([facility])[address] MCH (RBC) [Entitic mass] 31.1 pg Normal 26.0-34.[address] [facility] Comment on above: Performed By: #### L [id number] ####Claims Investigator: RUTH ANN BRAGG ([id number])[facility] ([facility])[address] MCHC 32.5 % Normal 30.5-36.[address] [facility] Comment on above: Performed By: #### L [id number] ####Claims Investigator: RUTH ANN BRAGG ([id number])[facility] ([facility])[address] MCV (RBC) [Entitic vol] 95.8 fL Normal 77.0-99.0 [facility] Comment on above: Performed By: #### L [id number] ####Claims Investigator: RUTH ANN BRAGG ([id number])[facility] ([facility])[address] Monocytes (Bld) [#/Vol] 0.9 10*3/uL Normal 0.0-0.9 [facility] Comment on above: Performed By: #### L [id number] ####Claims Investigator: RUTH ANN BRAGG ([id number])[facility] ([facility])[address] Monocytes/100 WBC (Bld) 15.4 % High 5.0-13.0 [facility] Comment on above: Performed By: #### L [id number] ####Claims Investigator: RUTH ANN BRAGG ([id number])[facility] ([facility])[address] NEUTROPHILS ABSOLUTE 3.6 10*3/uL Normal 1.8-7.5 [facility] Comment on above: Performed By: #### L [id number] ####Claims Investigator: RUTH ANN BRAGG ([id number])[facility] ([facility])[address] Neutrophils/100 WBC (Bld) 65.7 % Normal 38.0-82.0 [facility] Comment on above: Performed By: #### L [id number] ####Claims Investigator: RUTH ANN BRAGG ([id number])[facility] ([facility])[address] NRBC 0.0 /100 WBCs Normal 0.0-2.0 [facility] Comment on above: Performed By: #### L [id number] ####Claims Investigator: RUTH ANN BRAGG ([id number])[facility] ([facility])[address] Platelet mean volume (Bld) [Entitic vol] 11.2 fL Normal 9.0-12.7 [facility] Comment on above: Performed By: #### L [id number] ####Claims Investigator: RUTH ANN BRAGG ([id number])[facility] (SB[facility]AB)[address] Platelets (Bld) [#/Vol] 119 10*3/uL Low 140-440 [facility] Comment on above: Performed By: #### L [id number] ####Claims Investigator: RUTH ANN BRAGG ([id number])[facility] ([facility])[address] RBC (Bld) [#/Vol] 2.89 10*6/uL Low 3.80-5.20 [facility] Comment on above: Performed By: #### L [id number] ####Claims Investigator: RUTH ANN BRAGG ([id number])[facility] ([facility])[address] WBC (Bld) [#/Vol] 5.5 10*3/uL Normal 3.6-10.7 [facility] Comment on above: Performed By: #### L [id number] ####Claims Investigator: RUTH ANN BRAGG ([id number])[facility] ([facility])[address] COMPLETE URINALYSISon 2023 BACTERIA (#/HPF) IN URINE Moderate Abnormal Negative [facility] Comment on above: Performed By: #### L [id number] ####Claims Investigator: RUTH ANN BRAGG ([id number])[facility] [place] ([facility])[address] BILIRUBIN, TOTAL PRESENCE IN URINE Negative Normal Negative [facility] Comment on above: Performed By: #### L [id number] ####Claims Investigator: RUTH ANN BRAGG ([id number])[facility] ([facility])[address] Clarity (U) Clear Normal Clear [facility] Comment on above: Performed By: #### L [id number] ####Claims Investigator: RUTH ANN BRAGG ([id number])[facility] ([facility])[address] Color (U) Light Yellow Normal Lt. Yellow [facility] Comment on above: Performed By: #### L [id number] ####Claims Investigator: RUTH ANN BRAGG ([id number])[facility] ([facility])[address] GLUCOSE (MG/DL) IN URINE Normal Normal Nor mal (<70) [facility] Comment on above: Performed By: #### L [id number] ####Claims Investigator: RUTHA NN BRAGG ([id number])[facility] ([facility])[address] HEMOGLOBIN PRESENCE IN URINE Negative Normal Negative [facility] Comment on above: Performed By: #### L [id number] ####Claims Investigator: RUTH ANN BRAGG ([id number])[facility] ([facility])[address] Ketones Ql (U) Negative Normal Negative [facility] Comment on above: Performed By: #### L [id number] ####Claims Investigator: RUTH ANN BRAGG ([id number])[facility] ([facility])[address] LEUKOCYTE ESTERASE PRESENCE IN URINE BY TEST STRIP 75 Yomi/uL Abnormal Negative [facility] Comment on above: Performed By: #### L [id number] ####Claims Investigator: RUTH ANN BRAGG ([id number])[facility] ([facility])155 [place] [address] [place] MUCUS (#/LPF) IN URINE SEDIMENT Few Normal Negative [facility] Comment on above: Performed By: #### L [id number] ####Claims Investigator: RUTH ANN BRAGG ([id number])[facility] ([facility])[address] NITRITE PRESENCE IN URINE Negative Normal Negative [facility] Comment on above: Performed By: #### L [id number] ####Claims Investigator: RUTH ANN BRAGG ([id number])[facility] [place] (SBHLAB)[address] pH (U) 5.0 [pH] Normal 5.0-8.[address] [facility] Comment on above: Performed By: #### L [id number] ####Claims Investigator: RUTH ANN BARGG ([id number])[facility] [place] (SB[facility]AB)[address] Protein (U) [Mass/Vol] 30 mg/dL Abnormal Negative [facility] Comment on above: Performed By: #### L [id number] ####Claims Investigator: RUTH ANN BRAGG ([id number])[facility] [place] [address] [place] RBC (#/HPF) IN URINE SEDIMENT 3-5 Abnormal 0-[address] [facility] Comment on above: Performed By: #### L [id number] ####Claims Investigator: RUTH ANN BRAGG ([id number])[facility] ([facility])[address] [place] [address] Specific gravity (U) [Rel density] 1.018 Normal 1.005-1.[address] [facility] Comment on above: Performed By: #### L [id number] ####Claims Investigator: RUTH ANN BRAGG ([id number])[facility] SQUAMOUS EPITHELIAL CELLS (#/HPF) IN URINE SEDIMENT 0-2 Normal 3-[address] [facility] Comment on above: Performed By: #### L [id number] ####Claims Investigator: RUTH ANN BRAGG ([id number])[facility])[address] [place] [address] UROBILINOGEN (MG/DL) IN URINE Normal Normal Normal (0-1) [facility] Comment on above: Performed By: #### L [id number] ####Claims Investigator: RUTH ANN OBREGONDavidSHELTON ([id number])[facility] ([facility])[address] WBC (LEUKOCYTE) (#/HPF) IN URINE SEDIMENT 11-25 Abnormal 0-[address] [facility] Comment on above: Performed By: #### L [id number] ####Claims Investigator: RUTH ANN HERRONSHELTON ([id number])[facility] ([facility])[address] WBC (LEUKOCYTE) CLUMPS (#/HPF) IN URINE SEDIMENT Rare Abnormal Negative [facility] Comment on above: Performed By: #### L [id number] ####Claims Investigator: RUTH ANN OBREGONWILTON ([id number])[facility] ([facility])[address] YEAST (#/HPF) IN URINE Few Abnormal Negative [facility] Comment on above: Performed By: #### L [id number] ####Claims Investigator: RUTH ANN OBREGONWILTON ([id number])[facility] ([facility])[address] COMPREHENSIVE METABOLIC PANE Smith 06-25-2024 Albumin [Mass/Vol] 3.4 g/dL Low 3.5-5.[address] [facility] Comment on above: Performed By: #### L [id number], [id number] ####Claims Investigator: RUTH ANN BRAGG ([id number])[facility] ([facility])[address] ALP [Catalytic activity/Vol] 89 U/L Normal 38-[address] [facility] Comment on above: Performed By: #### L [id number], LAB17 ####Claims Investigator: RUTH ANN BRAGG ([id number])[facility] ([facility])[address] ALT [Catalytic activity/Vol] 21 U/L Normal 0-[address] [facility] Comment on above: Performed By: #### L [id number], LAB17 ####Claims Investigator: RUTH ANN BRAGG ([id number])[facility] ([facility])[address] Anion gap [Moles/Vol] 7 mmol/L Normal 3-13 [facility] Comment on above: Performed By: #### L [id number], LAB17 ####Claims Investigator: RUTH ANN BRAGG ([id number])[facility] ([facility])[address] AST [Catalytic activity/Vol] 45 U/L Normal 15-46 [facility] Comment on above: Performed By: #### L [id number], LAB17 ####Claims Investigator: RUTH ANN BRAGG ([id number])[facility] ([facility])[address] Bilirubin [Mass/Vol] 0.9 mg/dL Normal 0.2-1.3 [facility] Comment on above: Performed By: #### L [id number], LAB17 ####Claims Investigator: RUTH ANN BRAGG ([id number])[facility] ([facility])[address] Calcium [Mass/Vol] 9.7 mg/dL Normal 8.4-10.4 [facility] Comment on above: Performed By: #### L [id number], [id number] ####Claims Investigator: RUTH ANN BRAGG ([id number])[facility] ([facility])[address] [place] [address] [place] Chloride [Moles/Vol] 114 mmol/L High 98-107 [facility] Comment on above: Performed By: #### L [id number], LAB17 ####Claims Investigator: RUTH ANN BRAGG ([id number])[facility] ([facility])[address] CO2 [Moles/Vol] 21 mmol/L Low 22-30 [facility] Comment on above: Performed By: #### L [id number], LAB17 ####Claims Investigator: RUTH ANN BRAGG ([id number])[facility] ([facility])[address] Creatinine [Mass/Vol] 1.40 mg/dL High 0.52-1.04 [facility] Comment on above: Performed By: #### L [id number], LAB17 ####Claims Investigator: RUTH ANN BRAGG ([id number])[facility] ([facility])[address] GLOMERULAR FILTRATION RATE ML/MIN/1.73 SQ M.PREDICTED 38.6 mL/min/1.73m*2 Low >60.0 [facility] Comment on above: Result Comment: Calc ulation based on the Chronic Kidney Disease Epidemiology Collaboration (CKD-EPI) equation refit without adjustment for race Performed By: #### L [id number], LAB17 ####Claims Investigator: RUTH ANN BRAGG ([id number])[facility] [place] ([facility])[address] Glucose [Mass/Vol] 147 mg/dL High 70-100 [facility] Comment on above: Performed By: #### L [id number], LAB17 ####Claims Investigator: RUTH ANN BRAGG ([id number])[facility] ([facility])[address] Potassium [Moles/Vol] 3.6 mmol/L Normal 3.5-5.1 [facility] Comment on above: Performed By: #### L [id number], LAB17 ####Claims Investigator: RUTH ANN BRAGG ([id number])[facility] ([facility])[address] [place] [address] [place] Protein [Mass/Vol] 6.7 g/dL Normal 6.3-8.2 [facility] Comment on above: Performed By: #### L [id number], LAB17 ####Claims Investigator: RUTH ANN BRAGG ([id number])[facility] ([facility])[address] Sodium [Moles/Vol] 141 mmol/L Normal 135-145 [facility] Comment on above: Performed By: #### L [id number], LAB17 ####Claims Investigator: RUTH ANN BRAGG ([id number])[facility] ([facility])[address] Urea nitrogen [Mass/Vol] 37 mg/dL High 7-17 [facility] Comment on above: Performed By: #### L [id number], LAB17 ####Claims Investigator: RUTH ANN BRAGG ([id number])[facility] ([facility])[address] COVID-19, Flu A/B, and RSV C omboon 06-25-2024 Interpretation and review of laboratory results Normal [facility] CT HEAD WO IV CONTRASTon CT HEAD WO IV CONTRAST Normal [facility] CT Head WO contraston 2023 [facility] Radiology Study observation (narrative) [facility] alth CT Head WO contrastOrdered B y: Sue David on 06-25-2024 [facility] Work Phone: Comprehensive metabolic 1998 panelon 06-25-2024 Albumin [Mass/Vol] 3.4 g/dL Low 3.5 - 5.0 g/dL [facility] ALP [Catalytic activity/Vol] 89 U/L 38 - 126 U/L [facility] ALT [Catalytic activity/Vol] 21 U/L 0 - 34 U/L [facility] Anion gap [Moles/Vol] 7 mmol/L 3 - 13 mmol/L [facility] AST [Catalytic activity/Vol] 45 U/L 15 - 46 U/L [facility] Bilirubin [Mass/Vol] 0.9 mg/dL 0.2 - 1 .3 mg/dL [facility] Calcium [Mass/Vol] 9.7 mg/dL 8.4 - 10. 4 mg/dL [facility] Chloride [Moles/Vol] 114 mmol/L High 98 - 10 7 mmol/L [facility] CO2 [Moles/Vol] 21 mmol/L Low 22 - 30 mmol/L [facility] Creatinine [Mass/Vol] 1.4 mg/dL High 0.52 - 1.04 mg/dL [facility] GFR/1.73 sq M.predicted (S/P/Bld) [Vol rate/Area] 38.6 mL/min Low - PINF [facility] Glucose [Mass/Vol] 147 mg/dL High 70 - 100 mg/dL [facility] Interpretation and review of laboratory results Abnormal [facility] Potassium [Moles/Vol] 3.6 mmol/L 3.5 - 5.1 mmol/L [facility] Protein [Mass/Vol] 6.7 g/dL 6.3 - 8.2 g/dL [facility] Sodium [Moles/Vol] 141 mmol/L 135 - 145 mmol/L [facility] Urea nitrogen [Mass/Vol] 37 mg/dL High 7 - 17 mg/dL [facility] ECG 12-LEADon 06-25-2024 ECG 12-LEAD IMPRESSION: Ventricular-paced rhythm No further analysis attempted due to paced rhythm No significant changes compared to previous Electronically Signed On 06-25-2024 18:44:17 EST by Kaiden David Normal [facility] ED Provider Noteon ED Provider Note Normal [facility] Laboratory - Chemistry and C hemistry - challengeon 06-25-2024 Glucose [Mass/Vol] 184 mg/dL High 70 - 100 mg/dL [facility] Troponin I.cardiac [Mass/Vol] 0.043 ng/mL High [facility] - 0.034 ng/mL [facility] Troponin I.cardiac [Mass/Vol] 0.04 ng/mL High [facility] - 0.034 ng/mL [facility] Glucose [Mass/Vol] 140 mg/dL High 70 - 100 mg/dL [facility] Laboratory - Coagulationon 1 08-25-2023 aPTT Coag (PPP) [Time] 25.1 s 20.0 - 30.5 s [facility] INR Coag (PPP) [Relative time] 1.2 {INR} High 0.9 - 1.1 [facility] PT Coag (Bld) [Time] 13.2 s High 9.0 - 1 2.0 s [facility] Laboratory - Microbiology an d Antimicrobial susceptibilityon 06-25-2024 FLUAV RNA HUGO+probe Ql (Resp) Not detected Not Detected [facility] FLUBV RNA HUGO+probe Ql (Resp) Not detected Not Detected [facility] RSV RNA HUGO+probe Ql (Resp) Not detected Not Detected [facility] SARS-CoV-2 (COVID-19) RNA HUGO+probe Ql (Resp) Not detected Not Detected [facility] No Panel Informationon 06-25 Interpretation and review of laboratory results Abnormal [facility] Heart Rate 97 bpm [facility] P [place] 46 degrees [facility] [place] Interval 229 ms [facility] QRS [place] -12 degrees [facility] QRSD Interval 140 ms [facility] h QT Interval 399 ms [facility] QTC Interval 507 ms [facility] T Wave [place] 173 degrees [facility] CV EPIPHANY [facility] Interpretation and review of laboratory results Abnormal [facility] Interpretation and review of laboratory results Abnormal [facility] OCCULT BLOOD, STOOLon 2023 OCCULT BLOOD, STOOL FECAL OCCULT, STOOL (A) Reference Positive Negative ORDER COMMENTS: (A) Methodology: Immunoassay Normal [facility] Comment on above: Performed By: #### L [id number] ####Claims Investigator: RUTH ANN BRAGG ([id number])[facility] ([facility])[address] [place] [address] PROTIME AND APTTon aPTT Coag (Bld) [Time] 25.1 s Normal 20.0-30.5 [facility] Comment on above: Performed By: #### L [id number] ####Claims Investigator: RUTH ANN BRAGG ([id number])[facility] ([facility])[address] [place] [address] INR Coag (PPP) [Relative time] 1.2 {INR} High 0.9-1.1 [facility] Comment on above: Result Comment: Daniel mmended Anticoagulant Therapy: SEE BELOW----- INR of 2.0 - 3.0 : - Prophylaxis of Venous Thrombosis (high-risk surgery) - Treatment of Venous Thrombosis - Treatment of Pulmonary Embolism (Includes tissue heart valves, Acute Myocardial Infarction to prevent systemic embolism, Valvular Heart Disease, and Atrial Fibrillation)----- INR of 2.5 - 3.5 : - Mechanical Prosthetic Valves (high risk) - If oral anticoagulant therapy is used to prevent Myocardial Infarction Performed By: #### L [id number] ####Claims Investigator: RUTH ANN BRAGG ([id number])[facility] ([facility])[address] PT Coag (PPP) [Time] 13.2 s High 9.0-12.0 [facility] Comment on above: Performed By: #### L [id number] ####Claims Investigator: RUTH ANN BRAGG ([id number])[facility] ([facility])[address] SARS-COV-2, FLU A/B, AND RSV COMBOon 06-25-2024 SARS-CoV-2 (COVID-19) RNA HUGO+probe Ql (Unsp spec) Normal [facility] Comment on above: Performed By: #### L [id number] ####Claims Investigator: RUTH ANN BRAGG ([id number])[facility] ([facility])[address] [place] [address] [place] TROPONIN Ion 06-25-2024 Troponin I.cardiac [Mass/Vol] 0.042 ng/mL High <0.034 [facility] Comment on above: Result Comment: OLIVIA Mazariegos COMMENTS:Patients with high levels of Biotin oral intake (ie >5 mg/day) may have falsely decreased Troponin levels. Performed By: #### L [id number] ####Claims Investigator: RUTH ANN BRAGG ([id number])[facility] ([facility])[address] Troponin I.cardiac [Mass/Vol] 0.043 ng/mL High <0.034 [facility] Comment on above: Result Comment: OLIVIA Mazariegos COMMENTS:Patients with high levels of Biotin oral intake (ie >5 mg/day) may have falsely decreased Troponin levels. Performed By: #### L [id number] ####Claims Investigator: RUTH ANN BRAGG ([id number])[facility] ([facility])[address] TROPONIN, WITH SERIAL REFLEX on 06-25-2024 Troponin I.cardiac [Mass/Vol] 0.040 ng/mL High <0.034 [facility] Comment on above: Result Comment: OLIVIA Mazariegos COMMENTS:Patients with high levels of Biotin oral intake (ie >5 mg/day) may have falsely decreased Troponin levels. Performed By: #### L [id number], LAB17 ####Claims Investigator: RUTH ANN BRAGG ([id number])[facility] ([facility])[address] Troponin I.cardiac [Mass/Vol ]on 06-25-2024 Interpretation and review of laboratory results Abnormal [facility] Interpretation and review of laboratory results Abnormal [facility] URINE CULTUREon 06-25-2024 Bacteria identified Cx Nom (U) Normal [facility] Comment on above: Performed By: #### L [id number] ####Claims Investigator: CHERYL STOREY ([id number])[facility] ([facility])[address] [place] [address] Urinalysis complete panel (U )Ordered By: Davion Day on 06-25-2024 Bacteria LM.HPF (Urine sed) [#/Area] Moderate Abnormal Negative /HPF [facility] Bilirubin Ql (U) Negative Negative mg/dL [facility] Clarity (U) Clear Clear [facility] Color (U) Light Yellow Lt. Yellow [facility] Epithelial cells.squamous LM.HPF (Urine sed) [#/Area] 0-2 [facility] Glucose Ql (U) Normal Normal (<70) mg/dL [facility] Hemoglobin Ql (U) Negative Negative mg/dL [facility] Interpretation and review of laboratory results Abnormal [facility] Ketones (U) [Mass/Vol] Negative Negat balbina mg/dL [facility] Leukocyte clumps LM.HPF (Urine sed) [#/Area] Rare Abnormal Negative /HPF [facility] Leukocyte esterase Test strip Ql (U) 75 Abnormal Negative Yomi/uL [facility] Mucus LM.HPF (Urine sed) [#/Area] Few Negative /LPF [facility] Nitrite Ql (U) Negative Negative [facility] pH (U) 5.0 [pH] 5.0 - 8.0 pH [facility] Protein (U) [Mass/Vol] 30 mg/dL Abnormal Negative [facility] RBC LM.HPF (Urine sed) [#/Area] 3-5 Abnormal [facility] Specific gravity (U) [Rel density] 1.018 1.005 - 1.030 [facility] Urobilinogen (U) [Mass/Vol] Normal Normal (0-1) mg/dL [facility] WBC LM.HPF (Urine sed) [#/Area] 11-25 Abnormal [facility] Yeast.budding LM.HPF (Urine sed) [#/Area] Few Abnormal Negative /HPF [facility] XR Chest Single viewon 06-25 [facility] Radiology Study [facility]) [facility] CNOV Office Visit (FPDOYL) MIKEL WINSTON ([id number]) 1945 F Date Time Provider Department 06/11/24 1:00 PM KOMAL COHN FPDOYL During your visit today, we recorded the following information about you: Temperature Pulse Blood pressure Weight 97.8 degrees 92/minute 143/90 86.2 kg Height 1.626 m Komal Cohn DO 06/18/2024 7:25 PM Signed [facility] Hamdenomi Cohn DO [address] [place] [address] Date of Evaluation: 06/11/2024 Patient Name: Mikel Winston : 1945 Chief Complaint: Patient presents with: Hospital Discharge: 06/01/24 [facility], pace maker placement. Skin Check: Skin tag right upper shoulder area Nursing Intake: There are no exam notes on file for this visit. Subjective Ms. Winston is a 78 year old female who presents with the following complaint(s): Patient presents to follow up from [facility] 05/29/24-06/01/24. Patient began to feel tired and sob and started checking her pulse and found her pulse was 35. Atenolol discontinued due to hopes that bradycardia would resolve. Patient transferred for PPM placement. Patient now s/p PPM impant by Dr. Poole. Patient doing well at this time, denies concerns. BP is running high. The history is provided by the patient. Hypertension This is a chronic problem. The current episode started more than 1 year ago. The problem is uncontrolled. Pertinent negatives include no chest pain, headaches, palpitations or shortness of breath. Review of Systems Constitutional: Negative for fatigue and unexpected weight change. HENT: Negative for nosebleeds. Eyes: Negative for redness and visual disturbance. Respiratory: Negative for apnea, cough and shortness of breath. Cardiovascular: Negative for chest pain, palpitations and leg swelling. Genitourinary: Negative for hematuria. Neurological: Negative for dizziness, weakness, light-headedness, numbness and headaches. Hematological: Does not bruise/bleed easily. Psychiatric/Behavior al: The patient is not nervous/anxious. PAST MEDICAL HISTORY Diagnosis Date Anemia Diabetes (HCC) Diverticulosis Dysphagia FHx: colon cancer Hemorrhoids Hepatic flexure syndrome History of colon polyps Hypertension Kidney disease BARRON (nonalcoholic steatohepatitis) UTI (urinary tract infection) PAST SURGICAL HISTORY Procedure Laterality Date ANESTH,PACEMAKER INSERTION COLONOSCOPY 05/09/2012 TUBAL LIGATION HX FAMILY HISTORY Problem Relation Age of Onset Colon Cancer Mother other (Liver disease) Mother Social History Tobacco Use Smoking status: Former Smokeless tobacco: Never Vaping Use Vaping status: Never Used Substance Use Topics Alcohol use: No Drug use: No Current Outpatient Medications Medication Sig silver sulfADIAZINE (SILVADENE) 1 % cream Apply 1 application to affected area two times a day. trolamine salicylate (MYOFLEX) 10 % cream Apply 1 Each to affected area three times a day as needed. blood sugar diagnostic (BLOOD GLUCOSE TEST) test strip Use to test blood sugar BID SITagliptin phosphate (JANUVIA) 25 mg tablet Take 1 tablet by mouth once daily. levothyroxine (SYNTHROID) 50 mcg tablet take 1 tablet by mouth every day nystatin (MYCOSTATIN) powder Apply 1 application to affected area three times a day. APPLY TO AFFECTED AREA ferrous sulfate 325 mg (65 mg iron) tablet Take 1 tablet by mouth every afternoon. fluticasone (FLONASE) 50 mcg/actuation nasal spray Use 2 Sprays in each nostril once daily. rosuvastatin (CRESTOR) 20 mg tablet Take 1 tablet by mouth once daily. VITAMIN B-12 1,000 mcg tab take 1 tablet by mouth every day Blood-Glucose Meter Use to test blood sugar Lancets lancets Use to test blood sugar BID cholecalciferol, vitamin D3, (VITAMIN D3 ORAL) Take by mouth. aspirin 81 mg chewable tablet Take 81 mg by mouth. Vitamin E, dl, acetate, (VITAMIN E) 400 unit capsule Take 800 Units by mouth. amLODIPine (NORVASC) 5 mg tablet Take 1 tablet by mouth once daily. No current facility-administere d medications for this visit. I have confirmed and edited as necessary the past medical, family and social histories, HPI, and ROS obtained by others. Objective BP 143/90 Pulse 92 Temp 97.8 Ht 5' 4 (1.63m) Wt 190 lb (86.2kg) SpO2 98% BMI 32.60 kg/(m2). Physical Exam Vitals and nursing note reviewed. Constitutional: General: She is not in acute distress. Appearance: Normal appearance. She is well-developed. She is obese. She is not ill-appearing. HENT: Head: Normocephalic. Nose: Nose normal. Mouth/Throat: Pharynx: Uvula midline. Eyes: General: Lids are normal. Vision grossly intact. Gaze aligned appropriately. Extraocular Movements: Extraocular movements intact. Co (more content not included)... Normal [facility] [id number] 06-07-2024 [id number] Patient Choice Patient Name: MIKEL WINSTON Date of : 1945 [facility] 06-06-2024 [facility] Telephone (FPDOYL) MIKEL WINSTON ([id number]) 1945 F Date Time Provider Department 06/06/24 LALIT KOMAL [facility] During your visit today, we recorded the following information about you: Arnel Govea LPN 06/06/2024 4:22 PM Signed Christie with [facility] called and left a voicemail stating the patient is home and they did start of care for SN one time a week. She states the patient will need a hospital follow up appointment after pacemaker placement. Called and spoke with the patient and advised she has an appointment already scheduled for 06/11/24 at 1:00 for hospital follow up. She states she did not know that but she will be here. Allergies As of Date: 06/06/2024 Noted Allergy Reaction CODEINE 02/24/2016 4 - Hives 2 - Rash CODEINE SULFATE 06/13/2018 16 - Unknown Date Reviewed: 04/27/2024 Reviewed by: Arnel Govea LPN - Fully Assessed Reason for Visit: Home Care Arrangements [[id number]] Prescriptions as of 06/06/2024 - blood sugar diagnostic (BLOOD GLUCOSE TEST) test strip Use to test blood sugar BID - SITagliptin phosphate (JANUVIA) 25 mg tablet Take 1 tablet by mouth once daily. - levothyroxine (SYNTHROID) 50 mcg tablet take 1 tablet by mouth every day - furosemide (LASIX) 20 mg tablet take 1 tablet by mouth every day - nystatin (MYCOSTATIN) powder Apply 1 application to affected area three times a day. APPLY TO AFFECTED AREA - atenolol (TENORMIN) 50 mg tablet Take 1 tablet by mouth once daily. - ferrous sulfate 325 mg (65 mg iron) tablet Take 1 tablet by mouth every afternoon. - fluticasone (FLONASE) 50 mcg/actuation nasal spray Use 2 Sprays in each nostril once daily. - rosuvastatin (CRESTOR) 20 mg tablet Take 1 tablet by mouth once daily. - VITAMIN B-12 1,000 mcg tab take 1 tablet by mouth every day - Blood-Glucose Meter Use to test blood sugar - Lancets lancets Use to test blood sugar BID - ACCU-CHEK KENROY PLUS TEST STRP test strip 1 STRIP TWICE DAILY. USE TO TEST BLOOD SUGAR TWICE A DAY - cholecalciferol, vitamin D3, (VITAMIN D3 ORAL) Take by mouth. - aspirin 81 mg chewable tablet Take 81 mg by mouth. - Vitamin E, dl, acetate, (VITAMIN E) 400 unit capsule Take 800 Units by mouth. Problem List As Of Date 06/06/2024 Noted Resolved Hypertension [I10] Hyperlipidemia, mixed [E78.2] 08/28/2020 Diabetes (HCC) [E11.9] 08/28/2020 Generalized edema [R60.1] 08/28/2020 Hypothyroidism, acquired [E03.9] 08/28/2020 History of DVT (deep vein thrombosis) [Z86.718] 08/28/2020 Nocturnal hypoxia [G47.34] 08/28/2020 Seasonal allergies [J30.2] 11/26/2020 Blood infection [B99.9] 01/24/2022 Bilateral leg edema [R60.0] 05/03/2022 Chronic kidney disease, stage 3b (HCC) [N18.32] 12/01/2022 Acute deep vein thrombosis (DVT) of other speci*12/01/2022 Congestive heart failure, unspecified HF chroni*12/01/2022 Angina at rest ([facility]) [I20.89] 12/01/2022 Class 1 obesity with body mass index (BMI) of 3*12/01/2022 Systolic murmur [R01.1] 12/26/2022 Platelets decreased ([facility]) [D69.6] 12/26/2022 Depression [F32.A] 12/11/2023 BARRY (acute kidney injury) ([facility]) [N17.9] 11/18/2022 Cellulitis of right lower extremity [L03.115] 01/28/2024 Coronary artery disease involving coronary bypa*09/30/2022 Dyslipidemia [E78.5] 09/30/2022 Nonrheumatic aortic valve stenosis [I35.0] 09/30/2022 Kidney disease [N28.9] 03/21/2024 BARRON (nonalcoholic steatohepatitis) [K75.81] 03/21/2024 History of colon polyps [Z86.0100] 03/21/2024 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] 03/21/2024 Hemorrhoids [K64.9] 03/21/2024 FHx: colon cancer [Z80.0] 03/21/2024 Dysphagia [R13.10] 03/21/2024 Anemia [D64.9] 03/21/2024 Encounter Status:Closed by ARNEL GOVEA on 06/06/24 [facility] 30on 06-01-2024 30 Normal [facility] 30 The patient is Moderately Stable - Low risk of patient condition declining or worsening The patient's goals for the shift include comfort The clinical goals for the shift include no complications with new pacer and surgical site Goals met [facility] [id number] 06-01-2024 [id number] [facility] [id number] 06-01-2024 [id number] [facility] [id number] [facility] BASIC METABOLIC PANELon 05-09 Anion gap [Moles/Vol] 8 mmol/L Normal 3-13 [facility] Comment on above: Performed By: #### L [id number] ####Claims Investigator: CHERYL STOREY ([id number])[address] Calcium [Mass/Vol] 9.0 mg/dL Normal 8.4-10.4 [facility] Comment on above: Performed By: #### L [id number] ####Claims Investigator: CHERYL STOREY ([id number])[facility])[address] [place] [address] Chloride [Moles/Vol] 109 mmol/L High 98-107 [facility] Comment on above: Performed By: #### L [id number] ####Claims Investigator: CHERYL STOREY ([id number])[facility])[address] [place] [address] CO2 [Moles/Vol] 20 mmol/L Low 22-30 [facility] Comment on above: Performed By: #### L [id number] ####Claims Investigator: CHERYL STOREY ([id number])[facility] ([facility])[address] [place] [address] Creatinine [Mass/Vol] 2.62 mg/dL High 0.52-1.04 [facility] Comment on above: Performed By: #### L [id number] ####Claims Investigator: CHERYL STOREY ([id number])[facility] ([facility])[address] [place] [address] [place] GLOMERULAR FILTRATION RATE ML/MIN/1.73 SQ M.PREDICTED 18.2 mL/min/1.73m*2 Low >60.0 [facility] Comment on above: Result Comment: Calc ulation based on the Chronic Kidney Disease Epidemiology Collaboration (CKD-EPI) equation refit without adjustment for race Performed By: #### L [id number] ####Claims Investigator: CHERYL STOREY ([id number])[facility] ([facility])[address] [place] [address] Glucose [Mass/Vol] 168 mg/dL High 70-100 [facility] Comment on above: Performed By: #### L [id number] ####Claims Investigator: CHERYL STOREY ([id number])[facility] ([facility])[address] [place] [address] Potassium [Moles/Vol] 4.0 mmol/L Normal 3.5-5.1 [facility] Comment on above: Performed By: #### L [id number] ####Claims Investigator: CHERYL STOREY ([id number])[facility] ([facility])[address] [place] [address] [place] Sodium [Moles/Vol] 137 mmol/L Normal 135-145 [facility] Comment on above: Performed By: #### L AB15 ####Claims Investigator: CHERYL STOREY ([id number])[facility])[address] [place] [address] [place] Urea nitrogen [Mass/Vol] 62 mg/dL High 7-[address] [facility] Comment on above: Performed By: #### L AB15 ####Claims Investigator: CHERYL STOREY ([id number])[facility])[address] [place] [address] Basic metabolic 1998 panelon 06-01-2024 Anion gap [Moles/Vol] 8 mmol/L 3 - 13 mmol/L [facility] Calcium [Mass/Vol] 9 mg/dL 8.4 - 10. 4 mg/dL [facility] Chloride [Moles/Vol] 109 mmol/L High 98 - 10 7 mmol/L [facility] CO2 [Moles/Vol] 20 mmol/L Low 22 - 30 mmol/L [facility] Creatinine [Mass/Vol] 2.62 mg/dL High 0.52 - 1.04 mg/dL [facility] GFR/1.73 sq M.predicted (S/P/Bld) [Vol rate/Area] 18.2 mL/min Low - PINF [facility] Comment on above: Calculation based on the Chronic Kidney Disease Epidemiology Collaboration (CKD-EPI) equation refit without adjustment for race Glucose [Mass/Vol] 168 mg/dL High 70 - 100 mg/dL [facility] Interpretation and review of laboratory results Abnormal [facility] Potassium [Moles/Vol] 4 mmol/L 3.5 - 5.1 mmol/L [facility] Sodium [Moles/Vol] 137 mmol/L 135 - 145 mmol/L [facility] Urea nitrogen [Mass/Vol] 62 mg/dL High 7 - 17 mg/dL [facility] CBC W Auto Differential pane l (Bld)Ordered By: uGy Carl on 06-01-2024 Basophils (Bld) [#/Vol] 0 10*3/uL 0.0 - 0.2 10*3/uL [facility] Basophils/100 WBC (Bld) 0.4 % 0.0 - 2.0 % [facility] Eosinophils (Bld) [#/Vol] 0.2 10*3/uL 0. 0 - 0.5 10*3/uL [facility] Eosinophils/100 WBC (Bld) 2 % 0.0 - 6.0 % [facility] Erythrocyte distribution width (RBC) [Ratio] 14.7 % 11.5 - 15.0 % [facility] Hematocrit (Bld) [Volume fraction] 27.6 % Low 35.0 - 47.0 % [facility] Hemoglobin (Bld) [Mass/Vol] 8.7 g/dL Low 11.7 - 16.0 g/dL [facility] Immature granulocytes (Bld) [#/Vol] 0 10*3/uL NINF - 0.1 10*3/uL [facility] Immature granulocytes/100 WBC (Bld) 0.5 % 0.0 - 2.0 % [facility] Interpretation and review of laboratory results Abnormal [facility] th IPF 6 [facility] Lymphocytes (Bld) [#/Vol] 1.1 10*3/uL 1. 0 - 4.3 10*3/uL [facility] Lymphocytes/100 WBC (Bld) 14.6 % Low 15 .0 - 45.0 % [facility] MCH (RBC) [Entitic mass] 31.5 pg 26. 0 - 34.0 pg [facility] MCHC (RBC) [Mass/Vol] 31.5 % 30.5 - 36.0 % [facility] MCV (RBC) [Entitic vol] 100 fL High 77.0 - 99.0 fL [facility] Monocytes (Bld) [#/Vol] 1.4 10*3/uL High 0.0 - 0.9 10*3/uL [facility] Monocytes/100 WBC (Bld) 18.9 % High 5.0 - 13.0 % [facility] Neutrophils (Bld) [#/Vol] 4.7 10*3/uL 1. 8 - 7.5 10*3/uL [facility] Neutrophils/100 WBC (Bld) 63.6 % 38 .0 - 82.0 % [facility] Nucleated RBC/100 WBC (Bld) [Ratio] 0 % [facility] Platelet mean volume (Bld) [Entitic vol] 12.4 fL 9.0 - 12.7 fL [facility] Platelets (Bld) [#/Vol] 83 10*3/uL Low 140 - 440 10*3/uL [facility] RBC (Bld) [#/Vol] 2.76 10*6/uL Low 3.80 - 5.2 0 10*6/uL [facility] WBC (Bld) [#/Vol] 7.3 10*3/uL 3.6 - 10.7 10*3/uL [facility] CBC WITH AUTO DIFFERENTIALon 06-01-2024 Basophils (Bld) [#/Vol] 0.0 10*3/uL Normal 0.0-0.[address] [facility] Comment on above: Performed By: #### L [id number] ####Claims Investigator: CHERYL STOREY ([id number])[facility])[address] [place] [address] Basophils/100 WBC (Bld) 0.4 % Normal 0.0-2.0 S [facility] Comment on above: Performed By: #### L [id number] ####Claims Investigator: CHERYL STOREY ([id number])[facility])[address] [place] [address] Eosinophils (Bld) [#/Vol] 0.2 10*3/uL Normal 0.0-0.[address] [facility] Comment on above: Performed By: #### L [id number] ####Claims Investigator: CHERYL STOREY ([id number])[facility])[address] [place] [address] Eosinophils/100 WBC (Bld) 2.0 % Normal 0.0-6.[address] [facility] Comment on above: Performed By: #### L [id number] ####Claims Investigator: CHERYL STOREY ([id number])[address] Erythrocyte distribution width (RBC) [Ratio] 14.7 % Normal 11.5-15.[address] [facility] Comment on above: Performed By: #### L [id number] ####Claims Investigator: CHERYL STOREY ([id number])[facility])[address] [place] [address] Hematocrit (Bld) [Volume fraction] 27.6 % Low 35.0-47.[address] [facility] Comment on above: Performed By: #### L [id number] ####Claims Investigator: CHERYL STOREY ([id number])[address] Hemoglobin (Bld) [Mass/Vol] 8.7 g/dL Low 11.7-16.[address] [facility] Comment on above: Performed By: #### L [id number] ####Claims Investigator: CHERYL STOREY ([id number])[facility])[address] [place] [address] IMMATURE GRANS % 0.5 % Normal 0.0-2.0 [facility] Comment on above: Performed By: #### L [id number] ####Claims Investigator: CHERYL STOREY ([id number])[facility])[address] [place] [address] IMMATURE GRANS ABSOLUTE 0.0 10*3/uL Normal <0.1 [facility] Comment on above: Performed By: #### L [id number] ####Claims Investigator: CHERYL STOREY ([id number])[address] IPF 6 Normal [facility] Comment on above: Performed By: #### L [id number] ####Claims Investigator: CHERYL STOREY ([id number])[facility])[address] [place] [address] Lymphocytes (Bld) [#/Vol] 1.1 10*3/uL Normal 1.0-4.3 [facility] Comment on above: Performed By: #### L [id number] ####Claims Investigator: CHERYL STOREY ([id number])[address] Lymphocytes/100 WBC (Bld) 14.6 % Low 15.0-45.[address] [facility] Comment on above: Performed By: #### L [id number] ####Claims Investigator: CHERYL STOREY ([id number])[facility])[address] [place] [address] MCH (RBC) [Entitic mass] 31.5 pg Normal 26.0-34.[address] [facility] Comment on above: Performed By: #### L [id number] ####Claims Investigator: CHERYL STOREY ([id number])[facility])[address] [place] [address] MCHC 31.5 % Normal 30.5-36.[address] [facility] Comment on above: Performed By: #### L [id number] ####Claims Investigator: CHERYL STOREY ([id number])[facility])[address] [place] [address] MCV (RBC) [Entitic vol] 100.0 fL High 77.0-99.0 S [facility] Comment on above: Performed By: #### L [id number] ####Claims Investigator: CHERYL STOREY ([id number])[facility] ([facility])[address] [place] [address] Monocytes (Bld) [#/Vol] 1.4 10*3/uL High 0.0-0.[address] [facility] Comment on above: Performed By: #### L [id number] ####Claims Investigator: CHERYL STOREY ([id number])[facility])[address] [place] [address] Monocytes/100 WBC (Bld) 18.9 % High 5.0-13.0 S [facility] Comment on above: Performed By: #### L [id number] ####Claims Investigator: CHERYL STOREY ([id number])[facility])[address] [place] [address] NEUTROPHILS ABSOLUTE 4.7 10*3/uL Normal 1.8-7.5 [facility] Comment on above: Performed By: #### L [id number] ####Claims Investigator: CHERYL STOREY ([id number])[facility])[address] [place] [address] Neutrophils/100 WBC (Bld) 63.6 % Normal 38.0-82.[address] [facility] Comment on above: Performed By: #### L [id number] ####Claims Investigator: CHERYL STOREY ([id number])[facility])[address] [place] [address] NRBC 0.0 /100 WBCs Normal 0.0-2.0 [facility] Comment on above: Performed By: #### L [id number] ####Claims Investigator: CHERYL STOREY ([id number])[facility] ([facility])[address] [place] [address] Platelet mean volume (Bld) [Entitic vol] 12.4 fL Normal 9.0-12.7 [facility] Comment on above: Performed By: #### L [id number] ####Claims Investigator: CHERYL STOREY ([id number])[facility] [place] [address] Platelets (Bld) [#/Vol] 83 10*3/uL Low 140-440 [facility] Comment on above: Performed By: #### L [id number] ####Claims Investigator: CHERYL STOREY ([id number])[facility] ([facility])[address] [place] [address] RBC (Bld) [#/Vol] 2.76 10*6/uL Low 3.80-5.20 [facility] Comment on above: Performed By: #### L [id number] ####Claims Investigator: CHERYL STOREY ([id number])[facility] ([facility])[address] [place] [address] WBC (Bld) [#/Vol] 7.3 10*3/uL Normal 3.6-10.7 [facility] Comment on above: Performed By: #### L [id number] ####Claims Investigator: CHERYL STOREY ([id number])[facility] ([facility])[address] [place] [address] ECG 12-LEADon 06-01-2024 ECG 12-LEAD IMPRESSION: Atrial-ventricular dual-paced complexes Electronically Signed On 06-01-2024 11:57:52 [facility] IMPRESSION: SINUS RHYTHM Ventricular-pacing Electronically Signed On 06-01-2024 07:44:58 EDT by Wil [facility] - Chemistry and C hemistry - challengeon 06-01-2024 Glucose [Mass/Vol] 148 mg/dL High 70 - 100 mg/dL [facility] Glucose [Mass/Vol] 149 mg/dL High 70 - 100 mg/dL [facility] No Panel InformationOrdered By: Wil Donaldson on 06-01-2024 P [place] 0 degrees [facility] Work Phone: [place] Interval 199 ms [facility] Work Phone: [phone] QRS [place] 6 degrees [facility] Work Phone: QRSD Interval 148 ms [facility] Work Phone: QT Interval 509 ms [facility] Work Phone: [phone] QTC Interval 509 ms [facility] Work Phone: T Wave [place] 236 degrees [facility] Work Phone: [facility] Work Phone: No Panel Informationon 06-01 Atrial-ventricular dual-paced complexes Electronically Signed On 06-01-2024 11:57:52 EDT by Wil Alvarado MD - 06/01/2024 IMPRESSION: Atrial-ventricular dual-paced complexes Electronically Signed On 06-01-2024 11:57:52 EDT by Wil Donaldson [facility] Interpretation and review of laboratory results Abnormal [facility] Performed by: [employer] [facility], [address] [place] [address] CLIA ID: [id number] [facility] P [place] -26 degrees [facility] [place] Interval 233 ms [facility] QRS [place] -70 degrees [facility] QRSD Interval 142 ms [facility] QT Interval 475 ms [facility] QTC Interval 508 ms [facility] T Wave [place] 126 degrees [facility] SINUS RHYTHM Ventricular-pacing Electronically Signed On 06-01-2024 07:44:58 EDT by Wil Alvarado MD - 06/01/2024 IMPRESSION: SINUS RHYTHM Ventricular-pacing Electronically Signed On 06-01-2024 07:44:58 EDT by Wil Donaldson [facility] Interpretation and review of laboratory results Abnormal [facility] Performed by: [employer] [facility], [address] [place] [id number] CLIA ID: [id number] [facility] Nursing Noteon 06-01-2024 Nursing Note RN removed patients ivs. RN reviewed discharge instructions with patient. Patient belongings gathered. Patient ready for discharge waiting for ride. Normal [facility] Progress Noteon 06-01-2024 Progress Note BMP orders for 1 week post hospital prior to PCP appt. Normal [facility] Progress Note Normal [facility] Vital signsOrdered By: Wil Donaldson on 06-01-2024 Heart rate 60 /min bpm [facility] Work Phone: Vital signson 06-01-2024 Heart rate 68 /min bpm [facility] XR CHEST 2 VIEWSon 4 XR CHEST 2 VIEWS Normal [facility] XR Chest 2 Viewson 4 Diffuse interstitial thickening similar to previous exam. Report Dictated on Electronically Signed By: Wayne Cardenas MD Electronically Signed Date/Time: 06/01/2024 11:33 AM EDT [facility] Patient Name: MIKEL WNISTON : 1945 Exam Date/Time: 06/01/2024 10:48 Procedure: XR CHEST 2 VIEWS Ordering Provider: HOGAN HANNAH Reason For Exam: s/p PPM implant CHEST X-RAY PA/LATERAL CLINICAL INDICATION: s/p PPM implant TECHNIQUE: Frontal and lateral plain films of the chest were obtained. COMPARISON: May 29, 2024 FINDINGS: The lateral view is limited Cardiomediastinal silhouette: Left-sided pacemaker is noted with leads overlying the right atrium and right ventricle. Median sternotomy wires and mediastinal surgical clips are noted. Lungs: Interstitial thickening is noted similar to previous exam. Bones: Unremarkable [facility] Wayne Cardenas MD - 06/01/2024 Patient Name: MIKEL WINSTON : 1945 Exam Date/Time: 06/01/2024 10:48 Procedure: XR CHEST 2 VIEWS Ordering Provider: HOGAN HANNAH Reason For Exam: s/p PPM implant CHEST X-RAY PA/LATERAL CLINICAL INDICATION: s/p PPM implant TECHNIQUE: Frontal and lateral plain films of the chest were obtained. COMPARISON: May 29, 2024 FINDINGS: The lateral view is limited Cardiomediastinal silhouette: Left-sided pacemaker is noted with leads overlying the right atrium and right ventricle. Median sternotomy wires and mediastinal surgical clips are noted. Lungs: Interstitial thickening is noted similar to previous exam. Bones: Unremarkable IMPRESSION: Diffuse interstitial thickening similar to previous exam. Report Dictated on Electronically Signed By: Wayne Cardenas MD Electronically Signed Date/Time: 06/01/2024 11:33 AM EDT [facility] Radiology Study observation (narrative) [facility] XR Chest 2 ViewsOrdered By: Wayne Cardenas on 06-01-2024 [facility] Work Phone: 30on 05-31-2024 30 Normal [facility] 30 The patient is Moderately Stable - Low risk of patient condition declining or worsening The patient's goals for the shift include no chest pain The clinical goals for the shift include no symptomatic bradycardia Goals met over the shift Normal [facility] [id number] 05-31-2024 [id number] Normal [facility] Anesthesia Noteon 05-31-2024 Anesthesia Note Normal [facility] BASIC METABOLIC PANELon 05-09 Anion gap [Moles/Vol] 8 mmol/L Normal 3-13 [facility] Comment on above: Performed By: #### L AB15 ####Claims Investigator: CHERYL STOREY ([id number])[address] Calcium [Mass/Vol] 9.3 mg/dL Normal 8.4-10.4 [facility] Comment on above: Performed By: #### L AB15 ####Claims Investigator: CHERYL STOREY ([id number])[facility] ([facility])[address] [place] [address] Chloride [Moles/Vol] 108 mmol/L High 98-107 [facility] Comment on above: Performed By: #### L AB15 ####Claims Investigator: CHERYL STOREY ([id number])[facility] ([facility])[address] [place] [address] CO2 [Moles/Vol] 21 mmol/L Low 22-30 [facility] Comment on above: Performed By: #### L AB15 ####Claims Investigator: CHERYL STOREY ([id number])[facility])[address] [place] [address] Creatinine [Mass/Vol] 2.53 mg/dL High 0.52-1.04 [facility] Comment on above: Performed By: #### L AB15 ####Claims Investigator: CHERYL STOREY ([id number])[facility])[address] [place] [address] GLOMERULAR FILTRATION RATE ML/MIN/1.73 SQ M.PREDICTED 19.0 mL/min/1.73m*2 Low >60.0 [facility] Comment on above: Result Comment: Calc ulation based on the Chronic Kidney Disease Epidemiology Collaboration (CKD-EPI) equation refit without adjustment for race Performed By: #### L AB15 ####Claims Investigator: CHERYL STOREY ([id number])[facility])[address] [place] [address] Glucose [Mass/Vol] 102 mg/dL High 70-100 [facility] Comment on above: Performed By: #### L AB15 ####Claims Investigator: CHERYL STOREY ([id number])[facility])[address] [place] [address] Potassium [Moles/Vol] 4.1 mmol/L Normal 3.5-5.1 [facility] Comment on above: Performed By: #### L AB15 ####Claims Investigator: CHERYL STOREY ([id number])[facility])[address] [place] [address] Sodium [Moles/Vol] 136 mmol/L Normal 135-145 [facility] Comment on above: Performed By: #### L AB15 ####Claims Investigator: CHERYL [id number])[facility] ([facility])[address] [place] [address] Urea nitrogen [Mass/Vol] 57 mg/dL High 7-17 [facility] Comment on above: Performed By: #### L AB15 ####Claims Investigator: CHERYL STOREY ([id number])[facility])[address] [place] [address] Basic metabolic 1998 panelon 05-31-2024 Anion gap [Moles/Vol] 8 mmol/L 3 - 13 mmol/L [facility] Calcium [Mass/Vol] 9.3 mg/dL 8.4 - 10. 4 mg/dL [facility] Chloride [Moles/Vol] 108 mmol/L High 98 - 10 7 mmol/L [facility] CO2 [Moles/Vol] 21 mmol/L Low 22 - 30 mmol/L [facility] Creatinine [Mass/Vol] 2.53 mg/dL High 0.52 - 1.04 mg/dL [facility] GFR/1.73 sq M.predicted (S/P/Bld) [Vol rate/Area] 19 mL/min Low - PINF [facility] Comment on above: Calculation based on the Chronic Kidney Disease Epidemiology Collaboration (CKD-EPI) equation refit without adjustment for race Glucose [Mass/Vol] 102 mg/dL High 70 - 100 mg/dL [facility] Interpretation and review of laboratory results Abnormal [facility] Potassium [Moles/Vol] 4.1 mmol/L 3.5 - 5.1 mmol/L [facility] Sodium [Moles/Vol] 136 mmol/L 135 - 145 mmol/L [facility] Urea nitrogen [Mass/Vol] 57 mg/dL High 7 - 17 mg/dL [facility] CBC W Auto Differential pane l (Bld)Ordered By: Erica Bronson on 05-31-2024 Basophils (Bld) [#/Vol] 0.1 10*3/uL 0.0 - 0.2 10*3/uL [facility] Basophils/100 WBC (Bld) 0.8 % 0.0 - 2.0 % [facility] Eosinophils (Bld) [#/Vol] 0.2 10*3/uL 0. 0 - 0.5 10*3/uL [facility] Eosinophils/100 WBC (Bld) 2.6 % 0.0 - 6.0 % [facility] Erythrocyte distribution width (RBC) [Ratio] 14.4 % 11.5 - 15.0 % [facility] Hematocrit (Bld) [Volume fraction] 27.1 % Low 35.0 - 47.0 % [facility] Hemoglobin (Bld) [Mass/Vol] 8.8 g/dL Low 11.7 - 16.0 g/dL [facility] Immature granulocytes (Bld) [#/Vol] 0 10*3/uL NINF - 0.1 10*3/uL [facility] Immature granulocytes/100 WBC (Bld) 0.3 % 0.0 - 2.0 % [facility] Interpretation and review of laboratory results Abnormal [facility] IPF 8 [facility] Lymphocytes (Bld) [#/Vol] 1.4 10*3/uL 1. 0 - 4.3 10*3/uL [facility] Lymphocytes/100 WBC (Bld) 22 % 15 .0 - 45.0 % [facility] MCH (RBC) [Entitic mass] 31.7 pg 26. 0 - 34.0 pg [facility] MCHC (RBC) [Mass/Vol] 32.5 % 30.5 - 36.0 % [facility] MCV (RBC) [Entitic vol] 97.5 fL 77.0 - 99.0 fL [facility] Monocytes (Bld) [#/Vol] 1.2 10*3/uL High 0.0 - 0.9 10*3/uL [facility] Monocytes/100 WBC (Bld) 18.6 % High 5.0 - 13.0 % [facility] Neutrophils (Bld) [#/Vol] 3.6 10*3/uL 1. 8 - 7.5 10*3/uL [facility] Neutrophils/100 WBC (Bld) 55.7 % 38 .0 - 82.0 % [facility] Nucleated RBC/100 WBC (Bld) [Ratio] 0 % [facility] Platelet mean volume (Bld) [Entitic vol] 12.5 fL 9.0 - 12.7 fL [facility] Platelets (Bld) [#/Vol] 85 10*3/uL Low 140 - 440 10*3/uL [facility] RBC (Bld) [#/Vol] 2.78 10*6/uL Low 3.80 - 5.2 0 10*6/uL [facility] WBC (Bld) [#/Vol] 6.4 10*3/uL 3.6 - 10.7 10*3/uL [facility] CBC WITH AUTO DIFFERENTIALon 05-31-2024 Basophils (Bld) [#/Vol] 0.1 10*3/uL Normal 0.0-0.[address] [facility] Comment on above: Performed By: #### L [id number] ####Claims Investigator: CHERYL STOREY ([id number])[facility] ([facility])[address] [place] [address] Basophils/100 WBC (Bld) 0.8 % Normal 0.0-2.0 S [facility] Comment on above: Performed By: #### L [id number] ####Claims Investigator: CHERYL STOREY ([id number])[facility])[address] [place] [address] Eosinophils (Bld) [#/Vol] 0.2 10*3/uL Normal 0.0-0.[address] [facility] Comment on above: Performed By: #### L [id number] ####Claims Investigator: CHERYL TSOREY ([id number])[facility])[address] [place] [address] Eosinophils/100 WBC (Bld) 2.6 % Normal 0.0-6.[address] [facility] Comment on above: Performed By: #### L [id number] ####Claims Investigator: CHERYL STOREY ([id number])[facility])[address] [place] [address] Erythrocyte distribution width (RBC) [Ratio] 14.4 % Normal 11.5-15.[address] [facility] Comment on above: Performed By: #### L [id number] ####Claims Investigator: CHERYL STOREY ([id number])[facility])[address] [place] [address] Hematocrit (Bld) [Volume fraction] 27.1 % Low 35.0-47.[address] [facility] Comment on above: Performed By: #### L [id number] ####Claims Investigator: CHERYL STOREY ([id number])[facility])[address] [place] [address] Hemoglobin (Bld) [Mass/Vol] 8.8 g/dL Low 11.7-16.[address] [facility] Comment on above: Performed By: #### L [id number] ####Claims Investigator: CHERYL STOREY ([id number])[facility])[address] [place] [address] IMMATURE GRANS % 0.3 % Normal 0.0-2.0 [facility] Comment on above: Performed By: #### L [id number] ####Claims Investigator: CHERYL STOREY ([id number])[facility])[address] [place] [address] IMMATURE GRANS ABSOLUTE 0.0 10*3/uL Normal <0.[address] [facility] Comment on above: Performed By: #### L [id number] ####Claims Investigator: CHERYL STOREY ([id number])[facility])[address] [place] [address] [place] IPF 8 Normal [facility] Comment on above: Performed By: #### L [id number] ####Claims Investigator: CHERYL STOREY ([id number])[facility])[address] [place] [address] Lymphocytes (Bld) [#/Vol] 1.4 10*3/uL Normal 1.0-4.[address] [facility] Comment on above: Performed By: #### L [id number] ####Claims Investigator: CHERYL STOREY ([id number])[facility])[address] [place] [address] Lymphocytes/100 WBC (Bld) 22.0 % Normal 15.0-45.[address] [facility] Comment on above: Performed By: #### L [id number] ####Claims Investigator: CHERYL STOREY ([id number])[facility])[address] [place] [address] MCH (RBC) [Entitic mass] 31.7 pg Normal 26.0-34.[address] [facility] Comment on above: Performed By: #### L [id number] ####Claims Investigator: CHERYL STOREY ([id number])[facility])[address] [place] [address] MCHC 32.5 % Normal 30.5-36.[address] [facility] Comment on above: Performed By: #### L [id number] ####Claims Investigator: CHERYL STOREY ([id number])[facility] ([facility])[address] [place] [address] MCV (RBC) [Entitic vol] 97.5 fL Normal 77.0-99.0 S [facility] Comment on above: Performed By: #### L [id number] ####Claims Investigator: CHERYL STOREY ([id number])[facility])[address] [place] [address] Monocytes (Bld) [#/Vol] 1.2 10*3/uL High 0.0-0.[address] [facility] Comment on above: Performed By: #### L [id number] ####Claims Investigator: CHERYL STOREY ([id number])[facility])[address] [place] [address] Monocytes/100 WBC (Bld) 18.6 % High 5.0-13.0 S [facility] Comment on above: Performed By: #### L [id number] ####Claims Investigator: CHERYL STOREY ([id number])[facility])[address] [place] [address] NEUTROPHILS ABSOLUTE 3.6 10*3/uL Normal 1.8-7.5 [facility] Comment on above: Performed By: #### L [id number] ####Claims Investigator: CHERYL STOREY ([id number])[facility])[address] [place] [address] Neutrophils/100 WBC (Bld) 55.7 % Normal 38.0-82.[address] [facility] Comment on above: Performed By: #### L [id number] ####Claims Investigator: CHERYL STOREY ([id number])[facility] ([facility])[address] [place] [address] NRBC 0.0 /100 WBCs Normal 0.0-2.0 [facility] Comment on above: Performed By: #### L [id number] ####Claims Investigator: CHERYL STOREY ([id number])[facility] ([facility])[address] [place] [address] Platelet mean volume (Bld) [Entitic vol] 12.5 fL Normal 9.0-12.7 [facility] Comment on above: Performed By: #### L [id number] ####Claims Investigator: CHERYL STOREY ([id number])[facility] ([facility])[address] [place] [address] Platelets (Bld) [#/Vol] 85 10*3/uL Low 140-440 S [facility] Comment on above: Performed By: #### L [id number] ####Claims Investigator: CHERYL STOREY ([id number])[facility] ([facility])[address] [place] [address] RBC (Bld) [#/Vol] 2.78 10*6/uL Low 3.80-5.[address] [facility] Comment on above: Performed By: #### L [id number] ####Claims Investigator: CHERYL STOREY ([id number])[facility])[address] [place] [address] WBC (Bld) [#/Vol] 6.4 10*3/uL Normal 3.6-10.[address] [facility] Comment on above: Performed By: #### L [id number] ####Claims Investigator: CHERYL STOREY ([id number])[facility])[address] [place] [address] Consulton 05-31-2024 Consult Normal [facility] Electrophysiology studyon Successful implantation of a dual chamber permanent pacemaker via the left axillary vein. PLAN: - 2-view CXR in AM. - Device interrogation in AM - The patient will be observed overnight and will likely go home in the morning pending above. CV CPACS HEMO [facility] - Chemistry and C hemistry - challengeon 05-31-2024 Glucose [Mass/Vol] 156 mg/dL High 70 - 100 mg/dL [facility] Glucose [Mass/Vol] 108 mg/dL High 70 - 100 mg/dL [facility] Glucose [Mass/Vol] 130 mg/dL High 70 - 100 mg/dL [facility] Glucose [Mass/Vol] 107 mg/dL High 70 - 100 mg/dL [employer] No Panel Informationon 05-31 Interpretation and review of laboratory results Abnormal [facility] Performed by: [facility], [address] [place] [address] CLIA ID: [id number] [facility] Interpretation and review of laboratory results Abnormal [facility] Performed by: [facility], [address] [place] [address] CLIA ID: [id number] [facility] Interpretation and review of laboratory results Abnormal [facility] Performed by: [facility], [address] [place] [address] CLIA ID: [id number] [facility] Predominant 2:1 AV block Likely type 2 Right bundle branch block LAFB Poor R Wave progression Electronically Signed On 05-31-2024 10:23:14 EDT by Huy Frederick CV Huy Jin MD - 05/31/2024 IMPRESSION: Predominant 2:1 AV block Likely type 2 Right bundle branch block LAFB Poor R Wave progression Electronically Signed On 05-31-2024 10:23:14 EDT by Huy Frederick [facility] Interpretation and review of laboratory results Abnormal [facility] Performed by: [facility], [address] [place] [address] CLIA ID: [id number] [facility] [employer] [facility] No Panel InformationOrdered By: Huy Frederick on 05-31-2024 P [place] 54 degrees [employer] Work Phone: [place] Interval 282 ms [employer] Work Phone: QRS [place] -64 degrees [employer] Phone: [phone] QRSD Interval 172 ms [employer] Work Phone: [phone] QT Interval 679 ms [employer] Phone: QTC Interval 494 ms [employer] Work Phone: [phone] T Wave [place] -16 degrees [employer] Phone: [employer] Phone: [phone] Progress Noteon 05-31-2024 Progress Note [facility] [employer] [facility] Progress Note Normal [facility] [employer] [facility] Progress Note Nutrition rescreen completed. Chart reviewed. Patient to be monitored and followed by the diet field operations technician. Normal [facility] Vital signsOrdered By: Huy Frederick on 05-31-2024 Heart rate 32 /min bpm [employer] Phone: 30on 05-30-2024 30 Normal [facility] 30 The patient is Moderately Stable - Low risk of patient condition declining or worsening The patient's goals for the shift include to feel better/rest The clinical goals for the shift include stable heart rate Normal [facility] [id number] 05-30-2024 [id number] Legal Research Analyst following case for Discharge Needs. Pt is currently not active with [facility], was discharged 05/09/2024. [facility] [id number] 05-30-2024 [id number] Normal [facility] Consulton 05-30-2024 Consult Normal [facility] ECG 12-LEADon 05-30-2024 ECG 12-LEAD IMPRESSION: Sinus bradycardia Prolonged [place] interval Right bundle branch block LVH with secondary repolarization abnormality Inferior infarct, old Electronically Signed On 05-30-2024 03:56:08 EDT by Jade Loo [facility] Laboratory - Chemistry and C hemistry - challengeon 05-30-2024 TSH Qn 3.912 m[IU]/L [facility] Glucose [Mass/Vol] 183 mg/dL High 70 - 100 mg/dL [facility] Glucose [Mass/Vol] 153 mg/dL High 70 - 100 mg/dL [facility] Glucose [Mass/Vol] 176 mg/dL High 70 - 100 mg/dL [facility] Glucose [Mass/Vol] 117 mg/dL High 70 - 100 mg/dL [facility] - Chemistry and C hemistry - challengeOrdered By: Ovidio Carson on 05-30-2024 Troponin I.cardiac [Mass/Vol] 0.145 ng/mL Critically high NINF - 0.034 ng/mL [facility] No Panel Informationon 05-30 Interpretation and review of laboratory results Abnormal [facility] Performed by: [facility], [address] [facility] [address] CLIA ID: [id number] [facility] Interpretation and review of laboratory results Abnormal [facility] Performed by: [facility], [address] [place] [address] CLIA ID: [id number] [facility] Interpretation and review of laboratory results Abnormal [facility] Performed by: [facility], [address] [place] [address] CLIA ID: [id number] [facility] Interpretation and review of laboratory results Abnormal [facility] Performed by: [facility], [address] [place] [address] CLIA ID: [id number] [facility] Sinus bradycardia Prolonged [place] interval Right bundle branch block LVH with secondary repolarization abnormality Inferior infarct, old Electronically Signed On 05-30-2024 03:56:08 EDT by Jade Bolanos, - 05/30/2024 IMPRESSION: Sinus bradycardia Prolonged [place] interval Right bundle branch block LVH with secondary repolarization abnormality Inferior infarct, old Electronically Signed On 05-30-2024 03:56:08 EDT by Jade Loo [facility] No Panel InformationOrdered By: Jade Loo on 05-30-2024 P [place] -26 degrees [facility] Work Phone: [place] Interval 266 ms [employer] Work Phone: QRS [place] -59 degrees [employer] Work Phone: QRSD Interval 177 ms [facility] Work Phone: QT Interval 684 ms [facility]ShopEx Phone: QTC Interval 517 ms [facility] Work Phone: T Wave [place] 142 degrees [employer] Phone: [employer] Work Phone: Nursing Noteon 05-30-2024 Nursing Note Report called to [facility] . Pt and family aware of transport to facility. Normal [facility] Progress Noteon 05-30-2024 Progress Note Normal [facility] Progress [facility] Progress Note [facility] Progress Note Normal [facility] THYROID STIMULATING HORMONEo n 05-30-2024 THYROID STIMULATING HORMONE 3.912 uIU/mL Normal 0.465-4.680 [facility] Comment on above: Performed By: #### L [id number] ####Claims Investigator: CHERYL STOREY ([id number])[facility] ([facility])[address] [place] [address] [place] TROPONIN Ion 05-30-2024 Troponin I.cardiac [Mass/Vol] 0.145 ng/mL Critically high <0.034 [facility] Comment on above: Result Comment: OLIVIA Mazariegos COMMENTS:Patients with high levels of Biotin oral intake (ie >5 mg/day) may have falsely decreased Troponin levels. Performed By: #### L [id number] ####Claims Investigator: RUTH ANN BRAGG ([id number])[facility] (SBHLAB)[address] [place] [address] [place] TSH Qnon 05-30-2024 Interpretation and review of laboratory results Normal [facility] Troponin I.cardiac [Mass/Vol ]Ordered By: Ovidio Carson on 05-30-2024 Interpretation and review of laboratory results Abnormal [facility] Patients with high levels of Biotin oral intake (ie >5 mg/day) may have falsely decreased Troponin levels. [facility] Vital signsOrdered By: Jade Loo on 05-30-2024 Heart rate 34 /min bpm [facility] Work Phone: BASIC METABOLIC PANELon 10-2 Anion gap [Moles/Vol] 11 mmol/L Normal 3-13 [facility] Comment on above: Performed By: #### L [id number], [id number], LAB15, [id number] ####Claims Investigator: RUTH ANN BRAGG ([id number])[facility] (SB[facility])[address] Calcium [Mass/Vol] 9.5 mg/dL Normal 8.4-10.4 [facility] Comment on above: Performed By: #### L [id number], [id number], LAB15, [id number] ####Claims Investigator: RUTH ANN BRAGG ([id number])[facility] ([facility])[address] Chloride [Moles/Vol] 106 mmol/L Normal 98-107 [facility] Comment on above: Performed By: #### L [id number], [id number], LAB15, [id number] ####Claims Investigator: RUTH ANN BRAGG ([id number])[facility] ([facility])[address] [place] [address] [place] CO2 [Moles/Vol] 20 mmol/L Low 22-30 [facility] Comment on above: Performed By: #### L [id number], [id number], LAB15, [id number] ####Claims Investigator: RUTH ANN BRAGG ([id number])[facility] ([facility])[address] Creatinine [Mass/Vol] 2.01 mg/dL High 0.52-1.04 [facility] Comment on above: Performed By: #### L [id number], [id number], LAB15, [id number] ####Claims Investigator: RUTH ANN BRAGG ([id number])[facility] ([facility])[address] [place] [address] [place] GLOMERULAR FILTRATION RATE ML/MIN/1.73 SQ M.PREDICTED 25.0 mL/min/1.73m*2 Low >60.0 [facility] Comment on above: Result Comment: Calc ulation based on the Chronic Kidney Disease Epidemiology Collaboration (CKD-EPI) equation refit without adjustment for race Performed By: #### L [id number], [id number], LAB15, [id number] ####Claims Investigator: RUTH ANN BRAGG ([id number])[facility] (SBHLAB)[address] Glucose [Mass/Vol] 122 mg/dL High 70-100 [facility] Comment on above: Performed By: #### L [id number], [id number], LAB15, [id number] ####Claims Investigator: RUTH ANN BRAGG ([id number])[facility] (SBHLAB)[address] Potassium [Moles/Vol] 4.0 mmol/L Normal 3.5-5.1 [facility] Comment on above: Performed By: #### L [id number], [id number], LAB15, GGR851 ####Claims Investigator: RUTH ANN BRAGG ([id number])[facility] (SBHLAB)[address] Sodium [Moles/Vol] 137 mmol/L Normal 135-145 [facility] Comment on above: Performed By: #### L [id number], [id number], LAB15, [id number] ####Claims Investigator: RUTH ANN BRAGG ([id number])[facility] (SBHLAB)[address] Urea nitrogen [Mass/Vol] 42 mg/dL High 7-17 [facility] Comment on above: Performed By: #### L [id number], [id number], LAB15, [id number] ####Claims Investigator: RUTH ANN BRAGG ([id number])[facility] (SBHLAB)[address] Basic metabolic 1998 panelon 05-29-2024 Anion gap [Moles/Vol] 11 mmol/L 3 - 13 mmol/L [facility] Calcium [Mass/Vol] 9.5 mg/dL 8.4 - 10. 4 mg/dL [facility] Chloride [Moles/Vol] 106 mmol/L 98 - 10 7 mmol/L [facility] CO2 [Moles/Vol] 20 mmol/L Low 22 - 30 mmol/L [facility] Creatinine [Mass/Vol] 2.01 mg/dL High 0.52 - 1.04 mg/dL [facility] GFR/1.73 sq M.predicted (S/P/Bld) [Vol rate/Area] 25 mL/min Low - PINF [facility] Comment on above: Calculation based on the Chronic Kidney Disease Epidemiology Collaboration (CKD-EPI) equation refit without adjustment for race Glucose [Mass/Vol] 122 mg/dL High 70 - 100 mg/dL [facility] Interpretation and review of laboratory results Abnormal [facility] th Potassium [Moles/Vol] 4 mmol/L 3.5 - 5.1 mmol/L [facility] Sodium [Moles/Vol] 137 mmol/L 135 - 145 mmol/L [facility] Urea nitrogen [Mass/Vol] 42 mg/dL High 7 - 17 mg/dL [facility] CBC W Auto Differential pane l (Bld)on 05-29-2024 Basophils (Bld) [#/Vol] 0.1 10*3/uL 0.0 - 0.2 10*3/uL [facility] Basophils/100 WBC (Bld) 0.8 % 0.0 - 2.0 % [facility] Eosinophils (Bld) [#/Vol] 0.1 10*3/uL 0. 0 - 0.5 10*3/uL [facility] Eosinophils/100 WBC (Bld) 2.1 % 0.0 - 6.0 % [facility] Erythrocyte distribution width (RBC) [Ratio] 14.2 % 11.5 - 15.0 % [facility] Hematocrit (Bld) [Volume fraction] 31.2 % Low 35.0 - 47.0 % [facility] Hemoglobin (Bld) [Mass/Vol] 10.1 g/dL Low 11.7 - 16.0 g/dL [facility] Immature granulocytes (Bld) [#/Vol] 0 10*3/uL NINF - 0.1 10*3/uL [facility] Immature granulocytes/100 WBC (Bld) 0.5 % 0.0 - 2.0 % [facility] Interpretation and review of laboratory results Abnormal [facility] IPF 6 [facility] Sort Lymphocytes (Bld) [#/Vol] 1.4 10*3/uL 1. 0 - 4.3 10*3/uL [facility] Lymphocytes/100 WBC (Bld) 22.1 % 15 .0 - 45.0 % [facility] MCH (RBC) [Entitic mass] 31.7 pg 26. 0 - 34.0 pg [facility] MCHC (RBC) [Mass/Vol] 32.4 % 30.5 - 36.0 % [facility] MCV (RBC) [Entitic vol] 97.8 fL 77.0 - 99.0 fL [facility] Monocytes (Bld) [#/Vol] 1.2 10*3/uL High 0.0 - 0.9 10*3/uL [facility] Monocytes/100 WBC (Bld) 19.1 % High 5.0 - 13.0 % [facility] Neutrophils (Bld) [#/Vol] 3.5 10*3/uL 1. 8 - 7.5 10*3/uL [facility] Neutrophils/100 WBC (Bld) 55.4 % 38 .0 - 82.0 % [facility] Nucleated RBC/100 WBC (Bld) [Ratio] 0 % [facility] Platelet mean volume (Bld) [Entitic vol] 12 fL 9.0 - 12.7 fL [facility] Platelets (Bld) [#/Vol] 111 10*3/uL Low 140 - 440 10*3/uL [facility] RBC (Bld) [#/Vol] 3.19 10*6/uL Low 3.80 - 5.2 0 10*6/uL [facility] WBC (Bld) [#/Vol] 6.3 10*3/uL 3.6 - 10.7 10*3/uL [facility] CBC WITH AUTO DIFFERENTIALon 05-29-2024 Basophils (Bld) [#/Vol] 0.1 10*3/uL Normal 0.0-0.2 [facility] Comment on above: Performed By: #### L [id number] ####Claims Investigator: RUTH ANN BRAGG ([id number])[facility] ([facility])[address] [place] [address] Basophils/100 WBC (Bld) 0.8 % Normal 0.0-2.0 [facility] Comment on above: Performed By: #### L [id number] ####Claims Investigator: RUTH ANN BRAGG ([id number])[facility] (SB[facility])[address] Eosinophils (Bld) [#/Vol] 0.1 10*3/uL Normal 0.0-0.5 [facility] Comment on above: Performed By: #### L [id number] ####Claims Investigator: RUTH ANN BRAGG ([id number])[facility] (SB[facility])[address] Eosinophils/100 WBC (Bld) 2.1 % Normal 0.0-6.0 [facility] Comment on above: Performed By: #### L [id number] ####Claims Investigator: RUTH ANN BRAGG ([id number])[facility] ([facility] [place] [address] Erythrocyte distribution width (RBC) [Ratio] 14.2 % Normal 11.5-15.0 [facility] Comment on above: Performed By: #### L [id number] ####Claims Investigator: RUTH ANN BRAGG ([id number])[facility] ([facility] [place] [address] Hematocrit (Bld) [Volume fraction] 31.2 % Low 35.0-47.0 [facility] Comment on above: Performed By: #### L [id number] ####Claims Investigator: RUTH ANN BRAGG ([id number])[facility] (SBAB)[address] [place] [address] Hemoglobin (Bld) [Mass/Vol] 10.1 g/dL Low 11.7-16.0 [facility] Comment on above: Performed By: #### L [id number] ####Claims Investigator: RUTH ANN BRAGG ([id number])[facility] (SBAB)[address] IMMATURE GRANS % 0.5 % Normal 0.0-2.0 [facility] Comment on above: Performed By: #### L [id number] ####Claims Investigator: RUTH ANN BRAGG ([id number])[facility] (SB[facility]AB)[address] [place] [address] IMMATURE GRANS ABSOLUTE 0.0 10*3/uL Normal <0.[address] [facility] Comment on above: Performed By: #### L [id number] ####Claims Investigator: RUTH ANN BRAGG ([id number])[facility] (SB[facility])[address] IPF [address] [facility] Comment on above: Performed By: #### L [id number] ####Claims Investigator: RUTH ANN BRAGG ([id number])[facility] (SBHLAB)[address] [place] [address] Lymphocytes (Bld) [#/Vol] 1.4 10*3/uL Normal 1.0-4.[address] [facility] Comment on above: Performed By: #### L [id number] ####Claims Investigator: RUTH ANN BRAGG ([id number])[facility] (SBHLAB)[address] [place] [address] Lymphocytes/100 WBC (Bld) 22.1 % Normal 15.0-45.[address] [facility] Comment on above: Performed By: #### L [id number] ####Claims Investigator: RUTH ANN BRAGG ([id number])[facility] ([facility])[address] [place] [address] MCH (RBC) [Entitic mass] 31.7 pg Normal 26.0-34.[address] [facility] Comment on above: Performed By: #### L [id number] ####Claims Investigator: RUTH ANN BRAGG ([id number])[facility] (SBHLAB)[address] [place] [address] MCHC 32.4 % Normal 30.5-36.[address] [facility] Comment on above: Performed By: #### L [id number] ####Claims Investigator: RUTH ANN YEMI ([id number])[facility] (SBHLAB)[address] MCV (RBC) [Entitic vol] 97.8 fL Normal 77.0-99.0 [facility] Comment on above: Performed By: #### L [id number] ####Claims Investigator: RUTH ANN YEMI ([id number])[facility] (SBHLAB)[address] Monocytes (Bld) [#/Vol] 1.2 10*3/uL High 0.0-0.9 [facility] Comment on above: Performed By: #### L [id number] ####Claims Investigator: RUTH ANN BRAGG ([id number])[facility] ([facility])[address] Monocytes/100 WBC (Bld) 19.1 % High 5.0-13.0 [facility] Comment on above: Performed By: #### L [id number] ####Claims Investigator: RUTH ANN YEMI ([id number])[facility] (SBHLAB)[address] NEUTROPHILS ABSOLUTE 3.5 10*3/uL Normal 1.8-7.5 [facility] Comment on above: Performed By: #### L [id number] ####Claims Investigator: RUTH ANN OBREGONWILTON ([id number])[facility] ([facility])[address] Neutrophils/100 WBC (Bld) 55.4 % Normal 38.0-82.[address] [facility] Comment on above: Performed By: #### L [id number] ####Claims Investigator: RUTH ANN HERRONSHELTON ([id number])[facility] (SBHLAB)[address] NRBC 0.0 /100 WBCs Normal 0.0-2.0 [facility] Comment on above: Performed By: #### L [id number] ####Claims Investigator: RUTH ANN BARGG ([id number])[facility] (SBHLAB)[address] Platelet mean volume (Bld) [Entitic vol] 12.0 fL Normal 9.0-12.7 [facility] Comment on above: Performed By: #### L [id number] ####Claims Investigator: RUTH ANN BRAGG ([id number])[facility] (SBHLAB)[address] Platelets (Bld) [#/Vol] 111 10*3/uL Low 140-440 [facility] Comment on above: Performed By: #### L [id number] ####Claims Investigator: RUTH ANN BRAGG ([id number])[facility] (SB[facility]AB)[address] RBC (Bld) [#/Vol] 3.19 10*6/uL Low 3.80-5.20 [facility] Comment on above: Performed By: #### L [id number] ####Claims Investigator: RUTH ANN BRAGG ([id number])[facility] (SB[facility]AB)[address] WBC (Bld) [#/Vol] 6.3 10*3/uL Normal 3.6-10.7 [facility] Comment on above: Performed By: #### L [id number] ####Claims Investigator: RUTH ANN BRAGG ([id number])[facility] (SB[facility]AB)[address] ED Provider Noteon ED Provider Note Normal [facility] Laboratory - Chemistry and C hemistry - challengeOrdered By: Sylvia Hall on 05-29-2024 Troponin I.cardiac [Mass/Vol] 0.149 ng/mL Critically high NINF - 0.034 ng/mL [facility] Laboratory - Chemistry and C hemistry - challengeon 05-29-2024 Glucose [Mass/Vol] 112 mg/dL High 70 - 100 mg/dL [facility] Magnesium [Mass/Vol] 1.9 mg/dL 1.6 - 2 .3 mg/dL [facility] Laboratory - Chemistry and C hemistry - challengeOrdered By: Jayashree Naranjo on 05-29-2024 Troponin I.cardiac [Mass/Vol] 0.124 ng/mL Critically high NINF - 0.034 ng/mL [facility] Laboratory - Microbiology an d Antimicrobial susceptibilityon 05-29-2024 FLUAV RNA HUGO+probe Ql (Resp) Not detected Not Detected [facility] FLUBV RNA HUGO+probe Ql (Resp) Not detected Not Detected [facility] RSV RNA HUGO+probe Ql (Resp) Not detected Not Detected [facility] SARS-CoV-2 (COVID-19) RNA HUGO+probe Ql (Resp) Not detected Not Detected [facility] SARS-CoV-2 (COVID-19) RNA HUGO+probe Ql (Unsp spec) Methodology: real-time, RT-PCR The SARS-CoV-2, Flu A/B, and RSV Combo assay is intended for in vitro diagnostic use under the FDA Emergency Use Authorization (EUA). This test has not been FDA cleared or approved. In compliance with this authorization, please visit www.fda.gov/media/78 0109/download or www.fda.gov/media/33 7706/download to access the applicable information sheets. [facility] MAGNESIUMon 05-29-2024 Magnesium [Mass/Vol] 1.9 mg/dL Normal 1.6-2.3 [facility] Comment on above: Performed By: #### L [id number], [id number], LAB15, [id number] ####Claims Investigator: RUTH ANN BRAGG ([id number])[facility] ([address] Magnesium [Mass/Vol]on 05-29 Interpretation and review of laboratory results Normal [facility] NT PRO BNPon 05-29-2024 Natriuretic peptide B (Bld) [Mass/Vol] 3820 pg/mL High <20-300 [facility] Comment on above: Performed By: #### L [id number], [id number], LAB15, [id number] ####Claims Investigator: RUTH ANN BRAGG ([id number])[facility] ([facility])[address] Natriuretic peptide B [Mass/ Vol]on 05-29-2024 Interpretation and review of laboratory results Abnormal [facility] Natriuretic peptide B (Bld) [Mass/Vol] 3820 pg/mL High <20 - 300 [facility] No Panel Informationon 05-29 Interpretation and review of laboratory results Abnormal [facility] Performed by: [facility], [address] [address] CLIA ID: [id number] [facility] Progress Noteon 05-29-2024 Progress Note Normal [facility] h System [facility] SARS-COV-2, FLU A/B, AND RSV COMBOon 05-29-2024 SARS-CoV-2 (COVID-19) RNA HUGO+probe Ql (Unsp spec) Normal [facility] Comment on above: Performed By: #### L [id number] ####Claims Investigator: RUTH ANN BRAGG ([id number])[facility] (SBHLAB)[address] [place] [address] SARS-CoV-2, Flu A/B, and RSV Comboon 05-29-2024 Interpretation and review of laboratory results Normal [facility] TROPONIN Ion 05-29-2024 Troponin I.cardiac [Mass/Vol] 0.149 ng/mL Critically high <0.034 [facility] Comment on above: Result Comment: OLIVIA Mazariegos COMMENTS:Patients with high levels of Biotin oral intake (ie >5 mg/day) may have falsely decreased Troponin levels. Performed By: #### L [id number] ####Claims Investigator: RUTH ANN BRAGG ([id number])[facility] ([facility] TROPONIN, WITH SERIAL REFLEX on 05-29-2024 Troponin I.cardiac [Mass/Vol] 0.124 ng/mL Critically high <0.034 [facility] Comment on above: Result Comment: OLIVIA Mazariegos COMMENTS:Patients with high levels of Biotin oral intake (ie >5 mg/day) may have falsely decreased Troponin levels. Performed By: #### L [id number], [id number], LAB15, [id number] ####Claims Investigator: RUTH ANN BRAGG ([id number])[facility] (SBHLAB)[address] [place] [address] Troponin I.cardiac [Mass/Vol ]Ordered By: Sylvia Hall on 05-29-2024 Interpretation and review of laboratory results Abnormal [facility] Patients with high levels of Biotin oral intake (ie >5 mg/day) may have falsely decreased Troponin levels. [facility] Troponin I.cardiac [Mass/Vol ]Ordered By: Jayashree Naranjo on 05-29-2024 Interpretation and review of laboratory results Abnormal [facility] Patients with high levels of Biotin oral intake (ie >5 mg/day) may have falsely decreased Troponin levels. [facility] XR Chest Single viewon 05-29 Stable cardiomegaly. Chronic interstitial changes within the lungs. Mild superimposed pulmonary vascular congestion is suspected, which appears overall improved when compared to the study dated 01/30/2024. Report Dictated on Electronically Signed By: Shemar Teresa MD Electronically Signed Date/Time: 05/29/2024 7:24 PM EDT [facility] [employer] [facility] Patient Name: MIKEL WINSTON : 1945 [facility]#: [id number] Exam Date/Time: 05/29/2024 19:24 Procedure: XR CHEST 1 VIEW Ordering Provider: CARTER MARGARET Reason For Exam: CHEST PAIN PORTABLE CHEST X-RAY CLINICAL INDICATION: CHEST PAIN A portable frontal view of the chest was obtained. COMPARISON: 01/30/2024 FINDINGS: The heart is enlarged. Sternotomy wires are again noted. Chronic interstitial changes are noted. There appears to be mild pulmonary vascular congestion which appears to be improved when compared to the study from 01/30/2024. No new areas of consolidation are seen. There is no large pleural effusion or pneumothorax. There are degenerative changes of the spine. [facility] [employer] Shemar Teresa MD - 05/29/2024 Patient Name: MIKEL WINSTON : 1945 [facility]#: [id number] Exam Date/Time: 05/29/2024 19:24 Procedure: XR CHEST 1 VIEW Ordering Provider: CARTER MARGARET Reason For Exam: CHEST PAIN PORTABLE CHEST X-RAY CLINICAL INDICATION: CHEST PAIN A portable frontal view of the chest was obtained. COMPARISON: 01/30/2024 FINDINGS: The heart is enlarged. Sternotomy wires are again noted. Chronic interstitial changes are noted. There appears to be mild pulmonary vascular congestion which appears to be improved when compared to the study from 01/30/2024. No new areas of consolidation are seen. There is no large pleural effusion or pneumothorax. There are degenerative changes of the spine. IMPRESSION: Stable cardiomegaly. Chronic interstitial changes within the lungs. Mild superimposed pulmonary vascular congestion is suspected, which appears overall improved when compared to the study dated 01/30/2024. Report Dictated on Electronically Signed By: Shemar Teresa MD Electronically Signed Date/Time: 05/29/2024 7:24 PM EDT [facility] Radiology Study observation (narrative) [facility] hank XR Chest Single viewOrdered By: Shemar Teresa on 05-29-2024 [facility] CNOVon 04-27-2024 CNOV Office Visit (FPDOYL) MIKEL WINSTON ([id number]) 1945 F Date Time Provider Department 04/27/24 4:15 PM KOMAL COHN FPDOYL During your visit today, we recorded the following information about you: Temperature Pulse Blood pressure Weight 98.1 degrees 61/minute 130/64 89.8 kg Height 1.626 m Komal Cohn DO 05/06/2024 5:10 PM Signed [facility] [place] Komal Cohn DO [address] [place] [address] Date of Evaluation: 04/27/2024 Patient Name: Mikel Winston : 1945 Chief Complaint: Patient presents with: F/U Diabetes 3 Month Neck Pain: Pain in shoulders and neck Nursing Intake: There are no exam notes on file for this visit. Subjective Ms. Winston is a 78 year old female who presents with the following complaint(s): The history is provided by the patient and a relative. No manager language was used. Neck Pain Pertinent negatives include no chest pain, headaches, numbness or weakness. Diabetes She presents for her follow-up diabetic visit. She has type 2 diabetes mellitus. Pertinent negatives for hypoglycemia include no dizziness, headaches or nervousness/anxiousn ess. Pertinent negatives for diabetes include no chest pain, no fatigue and no weakness. Review of Systems Constitutional: Negative for fatigue and unexpected weight change. HENT: Negative for nosebleeds. Eyes: Negative for redness and visual disturbance. Respiratory: Negative for apnea, cough and shortness of breath. Cardiovascular: Negative for chest pain, palpitations and leg swelling. Genitourinary: Negative for hematuria. Musculoskeletal: Positive for neck pain. Neurological: Negative for dizziness, weakness, light-headedness, numbness and headaches. Hematological: Does not bruise/bleed easily. Psychiatric/Behavior al: The patient is not nervous/anxious. PAST MEDICAL HISTORY Diagnosis Date Anemia Diabetes (HCC) Diverticulosis Dysphagia FHx: colon cancer Hemorrhoids Hepatic flexure syndrome History of colon polyps Hypertension Kidney disease BARRON (nonalcoholic steatohepatitis) UTI (urinary tract infection) PAST SURGICAL HISTORY Procedure Laterality Date COLONOSCOPY 05/09/2012 TUBAL LIGATION HX FAMILY HISTORY Problem Relation Age of Onset Colon Cancer Mother other (Liver disease) Mother Social History Tobacco Use Smoking status: Former Smokeless tobacco: Never Vaping Use Vaping status: Never Used Substance Use Topics Alcohol use: No Drug use: No Current Outpatient Medications Medication Sig levothyroxine (SYNTHROID) 50 mcg tablet take 1 tablet by mouth every day furosemide (LASIX) 20 mg tablet take 1 tablet by mouth every day (Patient taking differently: Take 20 mg by mouth as needed.) nystatin (MYCOSTATIN) powder Apply 1 application to affected area three times a day. APPLY TO AFFECTED AREA atenolol (TENORMIN) 50 mg tablet Take 1 tablet by mouth once daily. ferrous sulfate 325 mg (65 mg iron) tablet Take 1 tablet by mouth every afternoon. fluticasone (FLONASE) 50 mcg/actuation nasal spray Use 2 Sprays in each nostril once daily. rosuvastatin (CRESTOR) 20 mg tablet Take 1 tablet by mouth once daily. VITAMIN B-12 1,000 mcg tab take 1 tablet by mouth every day Blood-Glucose Meter Use to test blood sugar Lancets lancets Use to test blood sugar BID cholecalciferol, vitamin D3, (VITAMIN D3 ORAL) Take by mouth. aspirin 81 mg chewable tablet Take 81 mg by mouth. Vitamin E, dl, acetate, (VITAMIN E) 400 unit capsule Take 800 Units by mouth. blood sugar diagnostic (BLOOD GLUCOSE TEST) test strip Use to test blood sugar BID silver sulfADIAZINE (SILVADENE) 1 % cream APPLY TO AFFECTED AREA TWICE A DAY DIRECTED SITagliptin phosphate (JANUVIA) 25 mg tablet Take 1 tablet by mouth once daily. ACCU-CHEK KENROY PLUS TEST STRP test strip 1 STRIP TWICE DAILY. USE TO TEST BLOOD SUGAR TWICE A DAY (Patient not taking: Reported on 04/27/2024) No current facility-administere d medications for this visit. I have confirmed and edited as necessary the past medical, family and social histories, HPI, and ROS obtained by others. Objective BP 130/64 Pulse 61 Temp 98.1 Ht 5' 4 (1.63m) Wt 198 lb (89.8kg) SpO2 96% BMI 33.97 kg/(m2). Physical Exam Vitals and nursing note reviewed. Constitutional: General: She is not in acute distress. Appearance: Normal appearance. She is well-developed. She is not ill-appearing. HENT: Head: Normocephalic. Right Ear: Tympanic membrane, ear canal and external ear normal. There is no impacted cerumen. Left Ear: Tympanic membrane, ear canal and external ear normal. There is no impacted cerumen. Nose: Nose normal. Mouth/Throat: Mouth: Mucous membranes are moist. Pharynx: (more content not included)... Normal [facility] US RETROPERITONEALon 024 US RETROPERITONEAL Normal [facility] Retroperitoneumon 024 1. Unremarkable renal ultrasound without urolithiasis or hydroureteronephrosi s. 2. Limited visualization of the left kidney due to limited acoustic windows probably accounting for the lack of visualization of the small left lower renal pole cyst noted on the prior study. Report Dictated on Electronically Signed By: Robinson Patel MD Electronically Signed Date/Time: 04/27/2024 11:45 AM EDT [facility] Patient Name: MIKEL WINSTON : 1945 Exam Date/Time: 04/25/2024 11:23 Procedure: US RETROPERITONEAL Ordering Provider: DOBSON MICHELLE Reason For Exam: N18.4 RENAL ULTRASOUND CLINICAL INDICATION: Chronic kidney disease stage IV. N18.4 Sonographic images of the bilateral kidneys and bladder were obtained. COMPARISON: 01/26/2024. FINDINGS: RIGHT KIDNEY: Size: 8.1 x 4.6 x 4.4 cm Cortex: Normal cortical thickness and echogenicity. Hydronephrosis: None Calculi or Cysts: None LEFT KIDNEY: Size: 9.1 x 4.2 x 4.0 cm. Overall visualization of the left kidney is somewhat limited due to limited acoustic windows. Cortex: Normal cortical thickness and echogenicity. Hydronephrosis: None Calculi or Cysts: None the left lower renal pole cyst noted on the previous study is not clearly identified on the current exam possibly related to the limited acoustic windows. BLADDER: The bladder is grossly unremarkable. Other: No mass or fluid collection is seen adjacent to the kidneys. [facility] Robinson Patel MD - 04/27/2024 Patient Name: MIKEL WINSTON : 1945 Exam Date/Time: 04/25/2024 11:23 Procedure: US RETROPERITONEAL Ordering Provider: DOBSON MICHELLE Reason For Exam: N18.4 RENAL ULTRASOUND CLINICAL INDICATION: Chronic kidney disease stage IV. N18.4 Sonographic images of the bilateral kidneys and bladder were obtained. COMPARISON: 01/26/2024. FINDINGS: RIGHT KIDNEY: Size: 8.1 x 4.6 x 4.4 cm Cortex: Normal cortical thickness and echogenicity. Hydronephrosis: None Calculi or Cysts: None LEFT KIDNEY: Size: 9.1 x 4.2 x 4.0 cm. Overall visualization of the left kidney is somewhat limited due to limited acoustic windows. Cortex: Normal cortical thickness and echogenicity. Hydronephrosis: None Calculi or Cysts: None the left lower renal pole cyst noted on the previous study is not clearly identified on the current exam possibly related to the limited acoustic windows. BLADDER: The bladder is grossly unremarkable. Other: No mass or fluid collection is seen adjacent to the kidneys. IMPRESSION: 1. Unremarkable renal ultrasound without urolithiasis or hydroureteronephrosi s. 2. Limited visualization of the left kidney due to limited acoustic windows probably accounting for the lack of visualization of the small left lower renal pole cyst noted on the prior study. Report Dictated on Electronically Signed By: Robinson Patel MD Electronically Signed Date/Time: 04/27/2024 11:45 AM EDT [facility] RetroperitoneumOrdered By : Robinson Patel on 04-27-2024 [facility] Phone: No Panel InformationOrdered By: Judy Tejada on 04-25-2024 Ao mid PSV 152.5 cm/s [facility] Phone: [phone] L renal orig RI 0.81 [facility] Work Phone: [phone] Left kidney length 9.13 cm [facility] Phone: [phone] Left renal dist EDV 9.7 cm/s [facility] Phone: [phone] Left renal dist PSV 77.0 cm/s [facility] Phone: [phone] Left renal dist RAR 0.50 [employer] Phone: [phone] Left Renal Dist RI 0.87 [employer] Phone: [phone] Left renal mid EDV 11.4 cm/s [facility] Phone: [phone] Left renal mid PSV 83.8 cm/s [facility] Work Phone: Left renal mid RAR 0.55 [facility] Work Phone: Left Renal Mid RI 0.86 [facility] Work Phone: Left renal middle parenchyma EDV 2.7 cm/s [facility] Work Phone: Left renal middle parenchyma PSV 14.0 cm/s [facility] Work Phone: Left renal middle parenchyma RI 0.81 [facility] Work Phone: Left renal origin EDV 27.6 cm/s [facility] Work Phone: Left renal origin PSV 141.6 cm/s [facility] Work Phone: Left renal origin RAR 0.93 [facility] Work Phone: Left renal prox EDV 27.6 cm/s [facility] Work Phone: Left renal prox PSV 110.9 cm/s [facility] Work Phone: Left renal prox RAR 0.73 [facility] Work Phone: Left Renal Prox RI 0.75 [facility] Work Phone: Left Renal RAR 0.93 [facility] Work Phone: Left Segmental Renal Artery EDV 2.7 cm/s [facility] Work Phone: Left Segmental Renal Artery PSV 14.0 cm/s [facility] Work Phone: Left Segmental Renal Artery RI 0.81 [facility] Work Phone: Right Arcuate Renal Artery EDV 2.3 cm/s [facility] Work Phone: Right Arcuate Renal Artery PSV 10.7 cm/s [facility] Work Phone: Right Arcuate Renal Artery RI 0.79 [facility] Work Phone: Right kidney length 9.36 cm [facility] Work Phone: Right renal dist EDV 12.9 cm/s [facility] Work Phone: Right renal dist PSV 105.0 cm/s [facility] [employer] Work Phone: [phone] Right renal dist RAR 0.69 [facility] [employer] Work Phone: [phone] Right Renal Dist RI 0.88 [facility] [employer] Work Phone: [phone] Right renal mid EDV 10.1 cm/s [facility] [employer] Work Phone: [phone] Right renal mid PSV 122.0 cm/s [facility] [employer] Work Phone: [phone] Right renal mid RAR 0.80 [facility] [employer] Work Phone: [phone] Right Renal Mid RI 0.92 [facility] [employer] Work Phone: [phone] Right renal middle parenchyma EDV 3.5 cm/s [facility] [employer] Work Phone: [phone] Right renal middle parenchyma PSV 24.2 cm/s [facility] [employer] Work Phone: [phone] Right renal middle parenchyma RI 0.86 [facility] [employer] Work Phone: [phone] Right Renal RAR 0.80 [facility] Work Phone: [phone] Right Renal Segmental Accel Time 0.03 s [facility] [employer] Work Phone: [phone] Right Segmental Renal Artery EDV 3.5 cm/s [facility] [employer] Work Phone: [phone] Right Segmental Renal Artery PSV 24.2 cm/s [facility] Phone: [phone] Right Segmental Renal Artery RI 0.86 [facility] [employer] Work Phone: No Panel Informationon 04-25 Significantly limited exam due to patient body habitus, bowel gas, and limited mobility. Unable to visualize the proximal right renal artery. Limited visualization of the aorta in decubitus position only. Elevated velocities noted in the aorta without any focal area of narrowing appreciated. May wish other means of evaluation if clinically indicated. Right kidney is normal in size. Left kidney is normal in size. Right renal resistive indices elevated (consistent with parenchymal disease). Right renal vein is patent and demonstrates normal phasicity. Left renal resistive indices elevated (consistent with parenchymal disease). Left renal vein is patent and demonstrates normal phasicity. Renal The right kidney is normal in size. The left kidney is normal in size. Right Renal Findings: Patent mid and distal artery without evidence of a significant stenosis. Resistive indices elevated (consistent with parenchymal disease). Right renal vein is patent and demonstrates normal phasicity. Left Renal Findings: Patent origin, proximal, mid and distal artery without evidence of a significant stenosis. Resistive indices elevated (consistent with parenchymal disease). Left renal vein is patent and demonstrates normal phasicity. Significantly limited exam due to patient body habitus, bowel gas, and limited mobility. Unable to visualize the proximal right renal artery. Limited visualization of the aorta in decubitus position only. Elevated velocities noted in the aorta without any focal area of narrowing appreciated. May wish other means of evaluation if clinically indicated. Casework Manager Details A arteaga scale, color Doppler imaging and spectral Doppler analysis ultrasound was performed. During the study longitudinal and transverse views were obtained. Pulsed wave doppler was performed. The exam was performed with the patient in the supine position. Overall the study quality was suboptimal. Study was technically difficult due to: body habitus, bowel gas and Limited mobility and inability to lay flat.. CV CPACS US Retroperitoneumon 024 Radiology Study observation (narrative) [email or web address] US renal artery dup fanny completeOrdered By: Judy Tejada on 04-25-2024 Left renal dist PSV 77 cm/s [facility] Work Phone: Left renal dist RAR 0.5 [facility] Phone: Left renal middle parenchyma PSV 14 cm/s [facility] Phone: Left Segmental Renal Artery PSV 14 cm/s [facility] Work Phone: Right renal dist PSV 105 cm/s [employer] Work Phone: Right renal mid PSV 122 cm/s [facility] Phone: Right renal mid RAR 0.8 [facility] Work Phone: Right Renal RAR 0.8 [facility] Work Phone: [phone] 04-19-2024 36 Normal [facility] [employer] [facility] Progress Noteon 04-18-2024 Progress Note Good news. Her aortic valve stenosis is not severe, moderate. Her LV systolic functions is still normal. As long as she is feeling okay we can simply follow this. Normal [facility] US Heart TransthoracicOrdere d By: Huy Frederick on 04-18-2024 Ao Root Index 1.39 cm/m2 [facility] Work Phone: Aortic Root 2.7 cm [facility] Work Phone: Aortic Sinus Valsalva 2.7 cm [facility] Work Phone: Aortic Sinus Valsalva Index 1.39 cm/m2 [facility] Work Phone: Ascending Aorta 3.6 cm [facility] Work Phone: Ascending Aorta Index 1.86 cm/m2 [facility] Work Phone: AV Area by Peak Velocity 1.3 cm2 [facility] Work Phone: AV Area by VTI 1.2 cm2 [facility] Work Phone: AV Mean Gradient 26 mmHg [facility] Work Phone: AV Mean Velocity 2.4 m/s [facility] Work Phone: AV Peak Gradient 43 mmHg [facility] Work Phone: AV Peak Velocity 3.3 m/s [facility] Work Phone: AV Velocity Ratio 0.27 [facility] Work Phone: AV VTI 86.3 cm [facility] Work Phone: VINH/BSA Peak Velocity 0.7 cm2/m2 [facility] Work Phone: VINH/BSA VTI 0.6 cm2/m2 [facility] Work Phone: E/E' Lateral 12.44 [facility] Work Phone: E/E' Ratio (Averaged) 14.22 [facility] Work Phone: E/E' Septal 16.00 [facility] Work Phone: EF BP 63 % 55 - 100 % [facility] Work Phone: Fractional Shortening 2D 32 % 28 - 44 % [facility] [employer] Work Phone: [phone] Interpretation and review of laboratory results Abnormal [facility] Work Phone: [phone] IVC Diameter 1.7 cm [facility] [employer] Work Phone: [phone] IVSd 0.8 cm 0.6 - 0.9 cm [facility] Work Phone: [phone] LA Diameter 4.7 cm [facility] [employer] Work Phone: [phone] LA Size Index 2.42 cm/m2 [facility] Work Phone: [phone] LA Volume 2C 68 mL Abnormal 22 - 52 mL [facility] [employer] Work Phone: [phone] LA Volume 4C 89 mL Abnormal 22 - 52 mL [facility] [employer] Work Phone: LA Volume A/L 89 mL [facility] Work Phone: [phone] LA Volume BP 83 mL Abnormal 22 - 52 mL [facility] [employer] Work Phone: [phone] LA Volume Index 2C 35 mL/m2 Abnormal 16 - 34 mL/m2 [facility] [employer] Work Phone: [phone] LA Volume Index 4C 46 mL/m2 Abnormal 16 - 34 mL/m2 [facility] [employer] Work Phone: LA Volume Index A/L 46 mL/m2 16 - 34 mL/m2 [facility] [employer] Work Phone: LA Volume Index BP 43 ml/m2 Abnormal 16 - 34 ml/m2 [facility] [employer] Work Phone: LA/AO Root Ratio 1.74 [facility] Work Phone: [phone] LV E' Lateral Velocity 9 cm/s [facility] Work Phone: [phone] LV E' Septal Velocity 7 cm/s [facility] Work Phone: LV EDV A2C 114 mL [facility] [employer] Work Phone: [phone] LV EDV A4C 102 mL [facility] [employer] Work Phone: [phone] LV EDV BP 108 mL Abnormal 56 - 104 mL [facility] Work Phone: LV EDV Index A2C 59 mL/m2 [facility] Work Phone: LV EDV Index A4C 53 mL/m2 [facility] Work Phone: LV EDV Index BP 56 mL/m2 [facility] Work Phone: LV Ejection Fraction A2C 73 % [facility] Work Phone: LV Ejection Fraction A4C 52 % [facility] Work Phone: LV ESV A2C 31 mL [facility] Work Phone: LV ESV A4C 48 mL [facility] Work Phone: LV ESV BP 39 mL 19 - 49 mL [facility] Work Phone: LV ESV Index A2C 16 mL/m2 [facility] Work Phone: LV ESV Index A4C 25 mL/m2 [facility] Work Phone: LV ESV Index BP 20 mL/m2 [facility] Work Phone: LV Mass 2D 187.3 g Abnormal 67 - 162 g [facility] Work Phone: LV Mass 2D Index 96.5 g/m2 Abnormal 43 - 95 g/m2 [facility] Work Phone: LV RWT Ratio 0.42 [facility] Work Phone: LVIDd 5.3 cm 3.9 - 5.3 cm [facility] Work Phone: LVIDd Index 2.73 cm/m2 [facility] Work Phone: LVIDs 3.6 cm [facility] Work Phone: LVIDs Index 1.86 cm/m2 [facility] Work Phone: LVOT Area 4.9 cm2 [facility] Work Phone: LVOT Cardiac Output 7.3 liter/mi nut e [facility] Work Phone: LVOT Diameter 2.5 cm [facility] Work Phone: LVOT Mean Gradient 2 mmHg [facility] Work Phone: [phone] LVOT Peak Gradient 3 mmHg [facility] Work Phone: [phone] LVOT Peak Velocity 0.9 m/s [facility] Work Phone: [phone] LVOT Stroke Volume Index 54.6 mL/m2 [facility] Work Phone: [phone] LVOT SV 106.0 ml [facility] Work Phone: [phone] LVOT VTI 21.6 cm [facility] Work Phone: [phone] LVOT:AV VTI Index 0.25 [facility] Work Phone: [phone] LVPWd 1.1 cm Abnormal 0.6 - 0.9 cm [facility] Work Phone: [phone] MV A Velocity 0.81 m/s [facility] Work Phone: MV E Velocity 1.12 m/s [facility] Work Phone: MV E Wave Deceleration Time 215.5 ms [facility] Work Phone: MV E/A 1.38 [facility] Work Phone: Pulmonary Artery EDP 6 mmHg [facility] Work Phone: RA Area 4C 70.6 mL [facility] Work Phone: RA Area 4C 68.3 mL [facility] Work Phone: RV Basal Dimension 4.6 cm [facility] Work Phone: RV Free Wall Peak S' 7 cm/s [facility] Work Phone: [phone] RV Mid Dimension 3.5 cm [facility] Work Phone: [phone] TAPSE 1.4 cm Abnormal 1.7 cm [facility] Work Phone: TR Max Velocity 3.01 m/s [facility] Work Phone: TR Peak Gradient 36 mmHg [facility] Work Phone: [facility] Work Phone: US Heart Transthoracicon Left Ventricle: Left ventricle size is normal. Normal wall thickness. Normal left ventricular systolic function. EF by 2D Simpsons Biplane is 63%. Normal wall motion. Right Ventricle: Right ventricle is dilated. Reduced systolic function. Aortic Valve: Trileaflet. Thickened cusps. Calcified cusps. No regurgitation. Moderate stenosis of the aortic valve. AV mean gradient is 26 mmHg. AV peak gradient is 43 mmHg. AV area by continuity VTI is 1.2 cm2. Mitral Valve: Mild (1+) regurgitation. Tricuspid Valve: Moderate (2+) regurgitation. Pulmonic Valve: Mild to moderate (1-2+) regurgitation. Left Atrium: Left atrium is dilated. Right Atrium: Right atrium is dilated. IVC/SVC: IVC diameter is normal and decreases greater than 50% during inspiration; therefore the estimated right atrial pressure is normal (~3 mmHg). Left Ventricle Left ventricle size is normal. Normal wall thickness. Normal left ventricular systolic function. EF by 2D Simpsons Biplane is 63%. Normal wall motion. Diastolic dysfunction present with normal LVEF. Right Ventricle Right ventricle is dilated. Reduced systolic function. Left Atrium Left atrium is dilated. Right Atrium Right atrium is dilated. IVC/SVC IVC diameter is normal and decreases greater than 50% during inspiration; therefore the estimated right atrial pressure is normal (~3 mmHg). Mitral Valve Valve structure is normal. Mild annular calcification. Mild (1+) regurgitation. No stenosis noted. Tricuspid Valve Valve structure is normal. Moderate (2+) regurgitation. Aortic Valve Trileaflet. Thickened cusps. Calcified cusps. No regurgitation. Moderate stenosis of the aortic valve. AV mean gradient is 26 mmHg. AV peak gradient is 43 mmHg. AV area by continuity VTI is 1.2 cm2. Pulmonic Valve Valve structure is normal. Mild to moderate (1-2+) regurgitation. Ascending Aorta Normal sized sinuses of Valsalva and ascending aorta. Pericardium No pericardial effusion. Septum No interatrial shunt visualized on color Doppler. Pulmonary Artery Main pulmonary artery is normal in size. Study Details Image quality: fair. Blood pressure: 178/88 mmHg. No contrast was given. CV CPACS 36on 03-27-2024 36 MD Shadia Pappas RN Looks good, a little better than previous creatinine. She should take the furosemide just as needed. Thank you PC to pt. Reviewed results and recommendations. She verbalized understanding. [facility] Progress Noteon 03-27-2024 Progress Note Looks good, a little better than previous creatinine. She should take the furosemide just as needed. Thank you [facility] 36on 03-21-2024 36 PC to patient. Reviewed PARESH recommendations. She verbalized understanding. [facility] 36 [facility] 36 [facility] CNOVon 03-16-2024 CNOV Office Visit (FPDOYL) MIKEL WINSTON ([id number]) 1945 F Date Time Provider Department 03/16/24 3:15 PM KOMAL COHN FPDOYL During your visit today, we recorded the following information about you: Pulse Blood pressure Weight Height 60/minute 120/52 88.9 kg 1.626 m Komal Cohn DO 03/20/2024 9:06 PM Signed [facility] [place] Komal Cohn DO [address] [place] [address] Date of Evaluation: 03/16/2024 Patient Name: Mikel Winston : 1945 Chief Complaint: Patient presents with: Edema: Started swelling and seeping Right leg May - Left leg started on Tues Nursing Intake: There are no exam notes on file for this visit. Subjective Ms. Winston is a 78 year old female who presents with the following complaint(s): The history is provided by the patient. No manager language was used. Edema This is a new problem. Episode onset: x 3 days. Pertinent negatives include no chest pain, coughing, fatigue, headaches, numbness or weakness. Associated symptoms comments: Swelling, redness, itching, seeping clear fluid left lower leg. Review of Systems Constitutional: Negative for fatigue and unexpected weight change. HENT: Negative for nosebleeds. Eyes: Negative for redness and visual disturbance. Respiratory: Negative for apnea, cough and shortness of breath. Cardiovascular: Negative for chest pain and palpitations. Genitourinary: Negative for hematuria. Skin: Left lower leg swelling, clear drainage, red, and itching Neurological: Negative for dizziness, weakness, light-headedness, numbness and headaches. Hematological: Does not bruise/bleed easily. Psychiatric/Behavior al: The patient is not nervous/anxious. 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 No date: History of colon polyps No date: Hypertension No date: Kidney disease No date: BARRON (nonalcoholic steatohepatitis) No date: UTI (urinary tract infection) PAST SURGICAL HISTORY 05/09/2012: COLONOSCOPY No date: TUBAL LIGATION HX FAMILY HISTORY Problem Relation Age of Onset Colon Cancer Mother other (Liver disease) Mother Social History Tobacco Use Smoking status: Former Smokeless tobacco: Never Vaping Use Vaping Use: Never used Substance Use Topics Alcohol use: No Drug use: No Current Outpatient Medications Medication Sig SITagliptin phosphate (JANUVIA) 25 mg tablet Take 1 tablet by mouth once daily. atenolol (TENORMIN) 50 mg tablet Take 1 tablet by mouth once daily. ferrous sulfate 325 mg (65 mg iron) tablet Take 1 tablet by mouth every afternoon. fluticasone (FLONASE) 50 mcg/actuation nasal spray Use 2 Sprays in each nostril once daily. omeprazole (PRILOSEC) 40 mg capsule Take 1 capsule by mouth every afternoon. rosuvastatin (CRESTOR) 20 mg tablet Take 1 tablet by mouth once daily. VITAMIN B-12 1,000 mcg tab take 1 tablet by mouth every day levothyroxine (SYNTHROID) 50 mcg tablet take 1 tablet by mouth every day cholecalciferol, vitamin D3, (VITAMIN D3 ORAL) Take by mouth. aspirin 81 mg chewable tablet Take 81 mg by mouth. Vitamin E, dl, acetate, (VITAMIN E) 400 unit capsule Take 800 Units by mouth. sulfamethoxazole-tri methoprim (BACTRIM DS) 800-160 mg per tablet Take 1 tablet by mouth two times a day for 7 days. silver sulfADIAZINE (SILVADENE) 1 % cream Apply as directed to affected area twice a day nystatin (MYCOSTATIN) powder Apply 1 application to affected area three times a day. APPLY TO AFFECTED AREA Cyanocobalamin 1,000 mcg TbER Take 1 tablet by mouth once daily. (Patient not taking: Reported on 02/27/2024) losartan (COZAAR) 25 mg tablet Take 1 tablet by mouth every afternoon. (Patient not taking: Reported on 02/27/2024) metFORMIN (GLUCOPHAGE) 500 mg tablet Take 1 tablet by mouth two times a day with meals. (Patient not taking: Reported on 02/27/2024) mirabegron (MYRBETRIQ) 25 mg Tb24 Take 1 tablet by mouth once daily. (Patient not taking: Reported on 02/27/2024) citalopram (CELEXA) 20 mg tablet Take 0.5 tablets by mouth once daily for 7 days, THEN 1 tablet once daily. (Patient not taking: Reported on 01/06/2024) potassium chloride SR (MICRO-K) 10 mEq CR capsule TAKE 1 CAPSULE BY MOUTH EVERY DAY NEEDED WITH LASIX (Patient not taking: Reported on 01/06/2024) Blood-Glucose Meter Use to test blood sugar blood sugar diagnostic (BLOOD GLUCOSE TEST) test strip Use to test blood sugar BID Lancets lancets Use to test blood sugar BID benzonatate (TESSALON PERLE) 100 mg capsule (Patient not taking: Reported on 03/07/2023) ACCU-CHEK KENROY PLUS TEST STRP test strip 1 STRIP TWICE DAILY. USE TO ROSA (more content not included)... 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 When signed, put in mail to the Pt. Komal Cervantes DO 03/15/2024 3:51 PM Signed Arnel Govea LPN 03/19/2024 10:09 AM Signed Please mail the order for the placard to the patient, thanks Grace Linda LPN 03/22/2024 10:03 AM Signed Please mail plaquard rx to patient. Thanks Nanette Nelson 03/22/2024 1:15 PM Signed Order has been mailed Nanette Nelson Allergies As of Date: 03/15/2024 Noted Allergy Reaction CODEINE 02/24/2016 4 - Hives 2 - Rash CODEINE SULFATE 06/13/2018 16 - Unknown Date Reviewed: 02/27/2024 Reviewed by: Marilin Rosales LPN - Fully Assessed Reason for Visit: Orders [681] Cmt: Handicap placard requested Primary Visit Diagnosis:Osteoarthr itis, unspecified osteoarthritis type, unspecified site [M19.90] Order(s):PARKING FOR HANDICAPPED [[id number]] Order #: [id number] Prescriptions as of 03/22/2024 - sulfamethoxazole-tri methoprim (BACTRIM DS) 800-160 mg per tablet Take 1 tablet by mouth two times a day for 7 days. - silver sulfADIAZINE (SILVADENE) 1 % cream Apply as directed to affected area twice a day - nystatin (MYCOSTATIN) powder Apply 1 application to affected area three times a day. APPLY TO AFFECTED AREA - SITagliptin phosphate (JANUVIA) 25 mg tablet Take 1 tablet by mouth once daily. - atenolol (TENORMIN) 50 mg tablet Take 1 tablet by mouth once daily. - Cyanocobalamin 1,000 mcg TbER Take 1 tablet by mouth once daily. - ferrous sulfate 325 mg (65 mg iron) tablet Take 1 tablet by mouth every afternoon. - fluticasone (FLONASE) 50 mcg/actuation nasal spray Use 2 Sprays in each nostril once daily. - losartan (COZAAR) 25 mg tablet Take 1 tablet by mouth every afternoon. - metFORMIN (GLUCOPHAGE) 500 mg tablet Take 1 tablet by mouth two times a day with meals. - mirabegron (MYRBETRIQ) 25 mg Tb24 Take 1 tablet by mouth once daily. - omeprazole (PRILOSEC) 40 mg capsule Take 1 capsule by mouth every afternoon. - rosuvastatin (CRESTOR) 20 mg tablet Take 1 tablet by mouth once daily. - citalopram (CELEXA) 20 mg tablet Take 0.5 tablets by mouth once daily for 7 days, THEN 1 tablet once daily. - VITAMIN B-12 1,000 mcg tab take 1 tablet by mouth every day - levothyroxine (SYNTHROID) 50 mcg tablet take 1 tablet by mouth every day - potassium chloride SR (MICRO-K) 10 mEq CR capsule TAKE 1 CAPSULE BY MOUTH EVERY DAY NEEDED WITH LASIX - Blood-Glucose Meter Use to test blood sugar - blood sugar diagnostic (BLOOD GLUCOSE TEST) test strip Use to test blood sugar BID - Lancets lancets Use to test blood sugar BID - benzonatate (TESSALON PERLE) 100 mg capsule - ACCU-CHEK KENROY PLUS TEST STRP test strip 1 STRIP TWICE DAILY. USE TO TEST BLOOD SUGAR TWICE A DAY - MULTIVITAMIN ORAL Take by mouth. - cholecalciferol, vitamin D3, (VITAMIN D3 ORAL) Take by mouth. - aspirin 81 mg chewable tablet Take 81 mg by mouth. - Vitamin E, dl, acetate, (VITAMIN E) 400 unit capsule Take 800 Units by mouth. Problem List As Of Date 03/15/2024 Noted Resolved Hypertension [I10] Hyperlipidemia, mixed [E78.2] 08/28/2020 Diabetes (HCC) [E11.9] 08/28/2020 Generalized edema [R60.1] 08/28/2020 Hypothyroidism, acquired [E03.9] 08/28/2020 History of DVT (deep vein thrombosis) [Z86.718] 08/28/2020 Nocturnal hypoxia [G47.34] 08/28/2020 Seasonal allergies [J30.2] 11/26/2020 Blood infection [B99.9] 01/24/2022 Bilateral leg edema [R60.0] 05/03/2022 Chronic kidney disease, stage 3b (HCC) [N18.32] 12/01/2022 Acute deep vein thrombosis (DVT) of other speci*12/01/2022 Congestive heart failure, unspecified HF chroni*12/01/2022 Angina at rest (HCC) [I20.89] 12/01/2022 Class 1 obesity with body mass index (BMI) of 3*12/01/2022 Systolic murmur [R01.1] 12/26/2022 Platelets decreased (HCC) [D69.6] 12/26/2022 Depression [F32.A] 12/11/2023 BARRY (acute kidney injury) (HCC) [N17.9] 11/18/2022 Cellulitis of right lower extremity [L03.115] 01/28/2024 Coronary artery disease involving coronary bypa*09/30/2022 Dyslipidemia [E78.5] 09/30/2022 Nonrheumatic aortic valve stenosis [I35.0] 09/30/2022 Encounter Status:Closed by NANETTE NELSON on 03/22/24 Normal [facility] 36on 03-14-2024 36 Called pharmacy to clarify lasix script, 80 mg daily for 3 days then daily as needed per cardiology office. Pharmacist read back script to me and confirmed this is correct. Normal [facility] Progress Noteon 03-14-2024 Progress Note Normal [facility] CNOVon 02-27-2024 CNOV Office Visit (FPDOYL) MIKEL WINSTON ([id number]) 1945 F Date Time Provider Department 02/27/24 3:15 PM KOMAL COHN FPDOYL During your visit today, we recorded the following information about you: Temperature Pulse Blood pressure Weight 97.5 degrees 63/minute 140/60 90.3 kg Height 1.626 m Komal Cohn DO 03/05/2024 9:46 PM Signed Transitional Care Management TCM Eligibility Documentation Program: Transitional Care Management Status: Enrolled Effective Dates: 02/15/2024 - present Responsible Staff: Latonya Rosado RN Discharge date: 02/13/2024 (Program start) Date of initial contact: 02/15/2024 Initial contact Target status: Successful; Contact made within 2 business days post-discharge Summary Discharged from: [facility] Admit Date: 01/28/24 Admitted for: cellulitis of right lower extremity and acute cystitis without hematuria Provider Documentation Mikel Winston is a 78 year old female here today for a follow up to recent hospitalization. I have reviewed the patient's hospital course including diagnostic testing performed during this hospitalization, their discharge medications, and my assessment and plan with the patient and any family members present at today's visit. Review of Systems Constitutional: Negative for malaise/fatigue and weight loss. HENT: Negative for nosebleeds. Eyes: Negative for blurred vision and double vision. Respiratory: Negative for cough and shortness of breath. Cardiovascular: Negative for chest pain, palpitations, orthopnea, claudication, leg swelling and PND. Gastrointestinal: Negative for abdominal pain. Genitourinary: Negative for hematuria. Musculoskeletal: Negative for joint pain and myalgias. Skin: Negative. Neurological: Negative for dizziness, tingling, sensory change, focal weakness, weakness and headaches. Endo/Heme/Allergies: Does not bruise/bleed easily. Vitals BP 140/60 Pulse 63 Temp 97.5 Ht 5' 4 (1.63m) Wt 199 lb (90.3kg) SpO2 98% BMI 34.14 kg/(m2). Physical Exam Vitals and nursing note reviewed. HENT: Head: Normocephalic and atraumatic. Right Ear: Tympanic membrane, ear canal and external ear normal. Left Ear: Tympanic membrane, ear canal and external ear normal. Nose: Nose normal. Eyes: General: Lids are normal. Conjunctiva/sclera: Conjunctivae normal. Pupils: Pupils are equal, round, and reactive to light. Cardiovascular: Rate and Rhythm: Normal rate and regular rhythm. Heart sounds: Normal heart sounds. Pulmonary: Effort: Pulmonary effort is normal. Breath sounds: Normal breath sounds. Abdominal: General: Bowel sounds are normal. Palpations: Abdomen is soft. Tenderness: There is no abdominal tenderness. Musculoskeletal: General: Normal range of motion. Cervical back: Normal range of motion and neck supple. Skin: General: Skin is warm and dry. Neurological: Mental Status: She is alert and oriented to person, place, and time. Gait: Gait is intact. Deep Tendon Reflexes: Reflexes are normal and symmetric. Psychiatric: Mood and Affect: Mood and affect normal. Cognition and Memory: Memory normal. Judgment: Judgment normal. ASSESSMENT/PLAN: 1. Primary hypertension - ICD9: 401.9, ICD10: I10 (primary diagnosis) - Controlled - Continue current medications - Recommend home blood pressure monitoring, to bring results to next visit - Encouraged sodium restriction, DASH or Mediterranean diet - Recommend regular aerobic exercise 2. Cellulitis of right lower extremity - ICD9: 682.6, ICD10: L03.115 - Improved 3. Acute cystitis without hematuria - ICD9: 595.0, ICD10: N30.00 - Follow up Hospital Admission. - Resolved 4. Class 1 obesity with body mass index (BMI) of 34.0 to 34.9 in adult, unspecified obesity type, unspecified whether serious comorbidity present - ICD9: 278.00, V85.34, ICD10: E66.9, Z68.34 February 27, 2024 3:24 PM Komal Cohn DO Scribe Attestation: The patient is seen and examined by Dr. Cohn and the following reflects his/her service. Scribed by Delores Cordoba February 27, 2024 3:52 PM Komal Cohn DO Provider Attestation: I, Komal Cohn DO personally performed the services described in this documentation. All medical record entries made by the scribe were at my direction and in my presence. I have reviewed the chart and discharge instructions (if applicable) and agree that the record reflects my personal performance and is accurate and complete. Electronically Signed: Komal Cohn DO, February 27, 2024 3:54 PM Allergies As of Date: 02/27/2024 Noted Allergy Reaction CODEINE 02/24/2016 4 - Hives 2 - Rash CODEINE SULFATE 06/13/2018 16 - Unknown Date Reviewed: 02/27/2024 Reviewed by: Marilin Rosales LPN - Fully Assessed Reason for Visit: Transition Of Care [4074] Cmt: Sum (more content not included)... Normal [facility] CNPNon 02-15-2024 CNPN Telephone ([facility]) MIKEL WINSTON ([id number]) 1945 F Date Time Provider Department 02/15/24 KOMAL COHN [facility] During your visit today, we recorded the following information about you: Allergies As of Date: 02/15/2024 Noted Allergy Reaction CODEINE 02/24/2016 4 - Hives 2 - Rash CODEINE SULFATE 06/13/2018 16 - Unknown Date Reviewed: 01/06/2024 Reviewed by: Arnel Govea LPN - Fully Assessed Reason for Visit: prescription [Other] Order(s):SITagliptin phosphate (JANUVIA) 25 mg tabletTake 1 tablet by mouth once daily.Disp: 30 tabletRfl: 2 Prescriptions as of 02/16/2024 - SITagliptin phosphate (JANUVIA) 25 mg tablet Take 1 tablet by mouth once daily. - atenolol (TENORMIN) 50 mg tablet Take 1 tablet by mouth once daily. - Cyanocobalamin 1,000 mcg TbER Take 1 tablet by mouth once daily. - ferrous sulfate 325 mg (65 mg iron) tablet Take 1 tablet by mouth every afternoon. - fluticasone (FLONASE) 50 mcg/actuation nasal spray Use 2 Sprays in each nostril once daily. - losartan (COZAAR) 25 mg tablet Take 1 tablet by mouth every afternoon. - metFORMIN (GLUCOPHAGE) 500 mg tablet Take 1 tablet by mouth two times a day with meals. - mirabegron (MYRBETRIQ) 25 mg Tb24 Take 1 tablet by mouth once daily. - nystatin (MYCOSTATIN) powder Apply 1 application to affected area three times a day. APPLY TO AFFECTED AREA - omeprazole (PRILOSEC) 40 mg capsule Take 1 capsule by mouth every afternoon. - rosuvastatin (CRESTOR) 20 mg tablet Take 1 tablet by mouth once daily. - citalopram (CELEXA) 20 mg tablet Take 0.5 tablets by mouth once daily for 7 days, THEN 1 tablet once daily. - VITAMIN B-12 1,000 mcg tab take 1 tablet by mouth every day - levothyroxine (SYNTHROID) 50 mcg tablet take 1 tablet by mouth every day - potassium chloride SR (MICRO-K) 10 mEq CR capsule TAKE 1 CAPSULE BY MOUTH EVERY DAY NEEDED WITH LASIX - Blood-Glucose Meter Use to test blood sugar - blood sugar diagnostic (BLOOD GLUCOSE TEST) test strip Use to test blood sugar BID - Lancets lancets Use to test blood sugar BID - benzonatate (TESSALON PERLE) 100 mg capsule - ACCU-CHEK KENROY PLUS TEST STRP test strip 1 STRIP TWICE DAILY. USE TO TEST BLOOD SUGAR TWICE A DAY - MULTIVITAMIN ORAL Take by mouth. - cholecalciferol, vitamin D3, (VITAMIN D3 ORAL) Take by mouth. - aspirin 81 mg chewable tablet Take 81 mg by mouth. - Vitamin E, dl, acetate, (VITAMIN E) 400 unit capsule Take 800 Units by mouth. Problem List As Of Date 02/15/2024 Noted Resolved Hypertension [I10] Hyperlipidemia, mixed [E78.2] 08/28/2020 Diabetes (HCC) [E11.9] 08/28/2020 Generalized edema [R60.1] 08/28/2020 Hypothyroidism, acquired [E03.9] 08/28/2020 History of DVT (deep vein thrombosis) [Z86.718] 08/28/2020 Nocturnal hypoxia [G47.34] 08/28/2020 Seasonal allergies [J30.2] 11/26/2020 Blood infection [B99.9] 01/24/2022 Bilateral leg edema [R60.0] 05/03/2022 Chronic kidney disease, stage 3b (HCC) [N18.32] 12/01/2022 Acute deep vein thrombosis (DVT) of other speci*12/01/2022 Congestive heart failure, unspecified HF chroni*12/01/2022 Angina at rest (HCC) [I20.89] 12/01/2022 Obesity, Class I, BMI 30-34.9 [E66.9] 12/01/2022 Systolic murmur [R01.1] 12/26/2022 Platelets decreased (HCC) [D69.6] 12/26/2022 Depression [F32.A] 12/11/2023 Prescriptions ordered this encounter Disp Refills Start End SITAGLIPTIN PHOSPHATE 25 MG TABLET 30 t* 2 02/16/2024 Route: ORAL Sig: Take 1 tablet by mouth once daily. Encounter Status:Closed by KOMAL COHN on 02/16/24 [facility] CARECOORDon 02-03-2024 CARECOORD Patient Choice Patient Name: MIKEL WINSTON Date of : 1945 [facility] CARECOORDon 02-02-2024 [place] [address] [facility] [place] [place] Normal 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 . [facility] Discharge med list transmitted to [facility] via Careport per TCC request. 7000 previously completed in [facility]. Facility is aware [facility] CBC W Auto Differential pane l (Bld)on 02-02-2024 Basophils (Bld) [#/Vol] 0.1 10*3/uL 0.0 - 0.2 10*3/uL [facility] Basophils/100 WBC (Bld) 0.7 % 0.0 - 2.0 % [facility] Eosinophils (Bld) [#/Vol] 0.6 10*3/uL High 0. 0 - 0.5 10*3/uL [facility] Eosinophils/100 WBC (Bld) 6.7 % High 0.0 - 6.0 % [facility] Erythrocyte distribution width (RBC) [Ratio] 13.3 % 11.5 - 15.0 % [facility] Hematocrit (Bld) [Volume fraction] 35.7 % 35.0 - 47.0 % [facility] Hemoglobin (Bld) [Mass/Vol] 11.3 g/dL Low 11.7 - 16.0 g/dL [facility] Immature granulocytes (Bld) [#/Vol] 0.0 10*3/uL NINF - 0.1 10*3/uL [facility] Immature granulocytes/100 WBC (Bld) 0.4 % 0.0 - 2.0 % [facility] Interpretation and review of laboratory results Abnormal [facility] th Lymphocytes (Bld) [#/Vol] 1.3 10*3/uL 1. 0 - 4.3 10*3/uL [facility] Lymphocytes/100 WBC (Bld) 16.1 % 15 .0 - 45.0 % [facility] MCH (RBC) [Entitic mass] 31.6 pg 26. 0 - 34.0 pg [facility] MCHC (RBC) [Mass/Vol] 31.7 % 30.5 - 36.0 % [facility] MCV (RBC) [Entitic vol] 99.7 fL High 77.0 - 99.0 fL [facility] Monocytes (Bld) [#/Vol] 1.3 10*3/uL High 0.0 - 0.9 10*3/uL [facility] Monocytes/100 WBC (Bld) 15.1 % High 5.0 - 13.0 % [facility] Neutrophils (Bld) [#/Vol] 5.1 10*3/uL 1. 8 - 7.5 10*3/uL [facility] Neutrophils/100 WBC (Bld) 61.0 % 38 .0 - 82.0 % [facility] Nucleated RBC/100 WBC (Bld) [Ratio] 0.0 % [facility] Platelet mean volume (Bld) [Entitic vol] 11.8 fL 9.0 - 12.7 fL [facility] Platelets (Bld) [#/Vol] 146 10*3/uL 140 - 440 10*3/uL [facility] RBC (Bld) [#/Vol] 3.58 10*6/uL Low 3.80 - 5.2 0 10*6/uL [facility] WBC (Bld) [#/Vol] 8.3 10*3/uL 3.6 - 10.7 10*3/uL [facility] CBC WITH AUTO DIFFERENTIALon 02-02-2024 Basophils (Bld) [#/Vol] 0.1 10*3/uL Normal 0.0-0.2 [facility] Comment on above: Performed By: #### L [id number] ####Claims Investigator: RUTH ANN OBREGONDavidSHELTON ([id number])[facility] (SBHLAB)[address] Basophils/100 WBC (Bld) 0.7 % Normal 0.0-2.0 [facility] Comment on above: Performed By: #### L [id number] ####Claims Investigator: RUTH ANN OBREGONWILTON ([id number])[facility] (SBHLAB)[address] Eosinophils (Bld) [#/Vol] 0.6 10*3/uL High 0.0-0.[address] [facility] Comment on above: Performed By: #### L [id number] ####Claims Investigator: RUTH ANN YEMI ([id number])[facility] ([facility])[address] Eosinophils/100 WBC (Bld) 6.7 % High 0.0-6.[address] [facility] Comment on above: Performed By: #### L [id number] ####Claims Investigator: RUTH ANN YEMI ([id number])[facility] ([facility])[address] Erythrocyte distribution width (RBC) [Ratio] 13.3 % Normal 11.5-15.[address] [facility] Comment on above: Performed By: #### L [id number] ####Claims Investigator: RUTH ANN BRAGG ([id number])[facility] ([facility])[address] Hematocrit (Bld) [Volume fraction] 35.7 % Normal 35.0-47.[address] [facility] Comment on above: Performed By: #### L [id number] ####Claims Investigator: RUTH ANN HERRONSHELTON ([id number])[facility] ([facility])[address] Hemoglobin (Bld) [Mass/Vol] 11.3 g/dL Low 11.7-16.[address] [facility] Comment on above: Performed By: #### L [id number] ####Claims Investigator: RUTH ANN BRAGG ([id number])[facility] (SB[facility])[address] IMMATURE GRANS % 0.4 % Normal 0.0-2.0 [facility] Comment on above: Performed By: #### L [id number] ####Claims Investigator: RUTH ANN BRAGG ([id number])[facility] ([facility])[address] IMMATURE GRANS ABSOLUTE 0.0 10*3/uL Normal <0.[address] [facility] Comment on above: Performed By: #### L [id number] ####Claims Investigator: RUTH ANN BRAGG ([id number])[facility] [place] (SBHLAB)[address] [place] [address] Lymphocytes (Bld) [#/Vol] 1.3 10*3/uL Normal 1.0-4.[address] [facility] Comment on above: Performed By: #### L [id number] ####Claims Investigator: RUTH ANN BRAGG ([id number])[facility] (SBAB)[address] Lymphocytes/100 WBC (Bld) 16.1 % Normal 15.0-45.[address] [facility] Comment on above: Performed By: #### L [id number] ####Claims Investigator: RUTH ANN BRAGG ([id number])[facility] (SBHL[facility])[address] MCH (RBC) [Entitic mass] 31.6 pg Normal 26.0-34.[address] [facility] Comment on above: Performed By: #### L [id number] ####Claims Investigator: RUTH ANN BRAGG ([id number])[facility] (SB[facility])[address] MCHC 31.7 % Normal 30.5-36.[address] [facility] Comment on above: Performed By: #### L [id number] ####Claims Investigator: RUTH ANN BRAGG ([id number])[facility] (SB[facility]AB)[address] MCV (RBC) [Entitic vol] 99.7 fL High 77.0-99.0 S [facility] Comment on above: Performed By: #### L [id number] ####Claims Investigator: RUTH ANN BRAGG ([id number])[facility] ([facility])[address] Monocytes (Bld) [#/Vol] 1.3 10*3/uL High 0.0-0.[address] [facility] Comment on above: Performed By: #### L [id number] ####Claims Investigator: RUTH ANN BRAGG ([id number])[facility] ([facility])[address] Monocytes/100 WBC (Bld) 15.1 % High 5.0-13.0 [facility] Comment on above: Performed By: #### L [id number] ####Claims Investigator: RUTH ANN BRAGG ([id number])[facility] (SB[facility])[address] NEUTROPHILS ABSOLUTE 5.1 10*3/uL Normal 1.8-7.5 [facility] Comment on above: Performed By: #### L [id number] ####Claims Investigator: RUTH ANN BRAGG ([id number])[facility] [place] ([facility])[address] Neutrophils/100 WBC (Bld) 61.0 % Normal 38.0-82.[address] [facility] Comment on above: Performed By: #### L [id number] ####Claims Investigator: RUTH ANN BRAGG ([id number])[facility] [place] ([facility])[address] NRBC 0.0 /100 WBCs Normal 0.0-2.0 [facility] Comment on above: Performed By: #### L [id number] ####Claims Investigator: RUTH ANN BRAGG ([id number])[facility] (SBHLAB)[address] Platelet mean volume (Bld) [Entitic vol] 11.8 fL Normal 9.0-12.7 [facility] Comment on above: Performed By: #### L [id number] ####Claims Investigator: RUTH ANN BRAGG ([id number])[facility] ([facility])[address] Platelets (Bld) [#/Vol] 146 10*3/uL Normal 140-440 [facility] Comment on above: Performed By: #### L [id number] ####Claims Investigator: RUTH ANN HERRONSHELTON ([id number])[facility] [place] (SBHLAB)[address] RBC (Bld) [#/Vol] 3.58 10*6/uL Low 3.80-5.[address] [facility] Comment on above: Performed By: #### L [id number] ####Claims Investigator: RUTH ANN BRAGG ([id number])[facility] [place] ([facility])[address] WBC (Bld) [#/Vol] 8.3 10*3/uL Normal 3.6-10.7 [facility] Comment on above: Performed By: #### L [id number] ####Claims Investigator: RUTH ANN BRAGG ([id number])[facility] (SB[facility])[address] COMPREHENSIVE METABOLIC PANE Smith 02-02-2024 Albumin [Mass/Vol] 3.4 g/dL Low 3.5-5.[address] [facility] Comment on above: Performed By: #### L [id number] ####Claims Investigator: RUTH ANN BRAGG ([id number])[facility] [place] ([facility])[address] ALP [Catalytic activity/Vol] 105 U/L Normal 38-[address] [facility] Comment on above: Performed By: #### L [id number] ####Claims Investigator: RUTH ANN BRAGG ([id number])[facility] ([facility])[address] ALT [Catalytic activity/Vol] 26 U/L Normal 0-34 [facility] Comment on above: Performed By: #### L [id number] ####Claims Investigator: RUTH ANN HERRONSHELTON ([id number])[facility] ([facility])[address] Anion gap [Moles/Vol] 10 mmol/L Normal 3-13 [facility] Comment on above: Performed By: #### L [id number] ####Claims Investigator: RUTH ANN PRITCHARDCER ([id number])[facility] [place] ([facility])[address] AST [Catalytic activity/Vol] 44 U/L Normal 15-46 [facility] Comment on above: Performed By: #### L [id number] ####Claims Investigator: RUTH ANN BRAGG ([id number])[facility] [place] ([facility])[address] Bilirubin [Mass/Vol] 1.0 mg/dL Normal 0.2-1.3 [facility] Comment on above: Performed By: #### L [id number] ####Claims Investigator: RUTH ANN BRAGG ([id number])[facility] ([facility])[address] Calcium [Mass/Vol] 8.8 mg/dL Normal 8.4-10.4 [facility] Comment on above: Performed By: #### L [id number] ####Claims Investigator: RUTH ANN BRAGG ([id number])[facility] ([facility])[address] [place] [address] [place] Chloride [Moles/Vol] 102 mmol/L Normal 98-107 [facility] Comment on above: Performed By: #### L [id number] ####Claims Investigator: RUTH ANN BRAGG ([phone])[facility] ([facility])[address] CO2 [Moles/Vol] 22 mmol/L Normal 22-30 [facility] Comment on above: Performed By: #### L [id number] ####Claims Investigator: RUTH ANN BRAGG ([phone])[facility] (SBHLAB)[address] Creatinine [Mass/Vol] 1.66 mg/dL High 0.52-1.04 [facility] Comment on above: Performed By: #### L [id number] ####Claims Investigator: RUTH ANN BRAGG ([id number])[facility] (SBHLAB)[address] GLOMERULAR FILTRATION RATE ML/MIN/1.73 SQ M.PREDICTED 31.5 mL/min/1.73m*2 Low >60.0 [facility] Comment on above: Result Comment: Calc ulation based on the Chronic Kidney Disease Epidemiology Collaboration (CKD-EPI) equation refit without adjustment for race Performed By: #### L [id number] ####Claims Investigator: RUTH ANN BRAGG ([id number])[facility] (SB[facility])[address] Glucose [Mass/Vol] 120 mg/dL High 70-100 [facility] Comment on above: Performed By: #### L [id number] ####Claims Investigator: RUTH ANN BRAGG ([id number])[facility] (SBHLAB)[address] [place] [address] [place] Potassium [Moles/Vol] 4.5 mmol/L Normal 3.5-5.1 [facility] Comment on above: Performed By: #### L [id number] ####Claims Investigator: RUTH ANN BRAGG ([id number])[facility] (SBHLAB)[address] Protein [Mass/Vol] 7.0 g/dL Normal 6.3-8.2 [facility] Comment on above: Performed By: #### L [id number] ####Claims Investigator: RUTH ANN BRAGG ([id number])[facility] [place] (SB[facility])[address] Sodium [Moles/Vol] 134 mmol/L Low 135-145 [facility] Comment on above: Performed By: #### L [id number] ####Claims Investigator: RUTH ANN BRAGG ([id number])[facility] (SBHLAB)[address] Urea nitrogen [Mass/Vol] 34 mg/dL High 7-17 [facility] Comment on above: Performed By: #### L [id number] ####Claims Investigator: RUTH ANN BRAGG ([id number])[facility] ([facility])[address] Comprehensive metabolic 1998 panelon 02-02-2024 Albumin [Mass/Vol] 3.4 g/dL Low 3.5 - 5.0 g/dL [facility] ALP [Catalytic activity/Vol] 105 U/L 38 - 126 U/L [facility] ALT [Catalytic activity/Vol] 26 U/L 0 - 34 U/L [facility] Anion gap [Moles/Vol] 10 mmol/L 3 - 13 mmol/L [facility] AST [Catalytic activity/Vol] 44 U/L 15 - 46 U/L [facility] Bilirubin [Mass/Vol] 1.0 mg/dL 0.2 - 1 .3 mg/dL [facility] Calcium [Mass/Vol] 8.8 mg/dL 8.4 - 10. 4 mg/dL [facility] Chloride [Moles/Vol] 102 mmol/L 98 - 10 7 mmol/L [facility] CO2 [Moles/Vol] 22 mmol/L 22 - 30 mmol/L [facility] Creatinine [Mass/Vol] 1.66 mg/dL High 0.52 - 1.04 mg/dL [facility] GFR/1.73 sq M.predicted MDRD (S/P/Bld) [Vol rate/Area] 31.5 mL/min/{1.73_m2} Low - PINF [facility] Comment on above: Calculation based on the Chronic Kidney Disease Epidemiology Collaboration (CKD-EPI) equation refit without adjustment for race Glucose [Mass/Vol] 120 mg/dL High 70 - 100 mg/dL [facility] Interpretation and review of laboratory results Abnormal [facility] Potassium [Moles/Vol] 4.5 mmol/L 3.5 - 5.1 mmol/L [facility] Protein [Mass/Vol] 7.0 g/dL 6.3 - 8.2 g/dL [facility] Sodium [Moles/Vol] 134 mmol/L Low 135 - 145 mmol/L [facility] Urea nitrogen [Mass/Vol] 34 mg/dL High 7 - 17 mg/dL [facility] Laboratory - Chemistry and C hemistry - challengeon 02-02-2024 Glucose [Mass/Vol] 186 mg/dL High 70 - 100 mg/dL [facility] Glucose [Mass/Vol] 121 mg/dL High 70 - 100 mg/dL [facility] No Panel Informationon 02-01 Interpretation and review of laboratory results Abnormal [facility] Performed by: [facility], [address] [place] [id number] CLIA ID: [id number] [facility] Interpretation and review of laboratory results Abnormal [facility] Performed by: [facility], [address] [place] [id number] CLIA ID: [id number] [facility] Radiology Study observation (narrative) Marya [facility]as [facility] Radiology Study observation (narrative) [facility] Nursing Noteon 02-02-2024 Nursing Note Report called to Mark at [facility]. Normal [facility] Progress Noteon 02-02-2024 Progress Note Normal [facility] Progress Note Normal [facility] CARECOORDon 02-01-2024 CARECOORD Did update patient that plan was to discharge to [facility] probably tomorrow. . Normal [facility] CARECOORD 7000 was entered into [facility] for the [facility] per TCC request. Facility is aware. Normal [facility] CARECOORD Tasked PREDICTIVE MAINTENANCE TECHNICIAN to complete 7000. Updated [facility] via careport that per attending, anticipate dc tomorrow. Per [facility] auth is good through 02/05. . Normal [facility] CBC W Auto Differential pane l (Bld)Ordered By: Jr Chase on 02-01-2024 Erythrocyte distribution width (RBC) [Ratio] 13.5 % 11.5 - 15.0 % [facility] Hematocrit (Bld) [Volume fraction] 30.2 % Low 35.0 - 47.0 % [facility] Hemoglobin (Bld) [Mass/Vol] 9.8 g/dL Low 11.7 - 16.0 g/dL [facility] MCH (RBC) [Entitic mass] 32.0 pg 26. 0 - 34.0 pg [facility] MCHC (RBC) [Mass/Vol] 32.5 % 30.5 - 36.0 % [facility] MCV (RBC) [Entitic vol] 98.7 fL 77.0 - 99.0 fL [facility] Platelet mean volume (Bld) [Entitic vol] 11.3 fL 9.0 - 12.7 fL [facility] Platelets (Bld) [#/Vol] 90 10*3/uL Low 140 - 440 10*3/uL [facility] RBC (Bld) [#/Vol] 3.06 10*6/uL Low 3.80 - 5.2 0 10*6/uL [facility] WBC (Bld) [#/Vol] 6.4 10*3/uL 3.6 - 10.7 10*3/uL [facility] CBC WITH AUTO DIFFERENTIALon 02-01-2024 Erythrocyte distribution width (RBC) [Ratio] 13.5 % Normal 11.5-15.0 [facility] Comment on above: Performed By: #### L [id number], [id number] ####Claims Investigator: RUTH ANN BRAGG ([id number])[facility] ([facility])[address] [place] [address] Hematocrit (Bld) [Volume fraction] 30.2 % Low 35.0-47.0 [facility] Comment on above: Performed By: #### L [id number], [id number] ####Claims Investigator: RUTH ANN BRAGG ([id number])[facility] (SBHLAB)[address] Hemoglobin (Bld) [Mass/Vol] 9.8 g/dL Low 11.7-16.0 [facility] Comment on above: Performed By: #### L [id number], [id number] ####Claims Investigator: RUTH ANN YEMI ([id number])[facility] (SBHLAB)[address] MCH (RBC) [Entitic mass] 32.0 pg Normal 26.0-34.0 [facility] Comment on above: Performed By: #### L [id number], [id number] ####Claims Investigator: RUTH ANN OBREGONWILTON ([id number])[facility] [place] [facility] MCHC 32.5 % Normal 30.5-36.0 [facility] Comment on above: Performed By: #### L [id number], [id number] ####Claims Investigator: RUTH ANN HERRONSHELTON ([id number])[facility] (SBHLAB)[address] MCV (RBC) [Entitic vol] 98.7 fL Normal 77.0-99.0 [facility] Comment on above: Performed By: #### L [id number], [id number] ####Claims Investigator: RUTH ANN BRAGG ([id number])[facility] (SBHLAB)[address] Platelet mean volume (Bld) [Entitic vol] 11.3 fL Normal 9.0-12.7 [facility] Comment on above: Performed By: #### L [id number], [id number] ####Claims Investigator: RUTH ANN BRAGG ([id number])[facility] (SBHLAB)[address] Platelets (Bld) [#/Vol] 90 10*3/uL Low 140-440 [facility] Comment on above: Performed By: #### L [id number], [id number] ####Claims Investigator: RUTH ANN BRAGG ([id number])[facility] (SBHLAB)[address] RBC (Bld) [#/Vol] 3.06 10*6/uL Low 3.80-5.20 [facility] Comment on above: Performed By: #### L [id number], [id number] ####Claims Investigator: RUTH ANN BRAGG ([id number])[facility] (SB[facility]AB)[address] WBC (Bld) [#/Vol] 6.4 10*3/uL Normal 3.6-10.7 [facility] Comment on above: Performed By: #### L [id number], [id number] ####Claims Investigator: RUTH ANN BRAGG ([id number])[facility] (SBHLAB)[address] COMPREHENSIVE METABOLIC PANE Smith 02-01-2024 Albumin [Mass/Vol] 2.9 g/dL Low 3.5-5.0 [facility] Comment on above: Performed By: #### L [id number], [id number] ####Claims Investigator: RUTH ANN BRAGG ([id number])[facility] (SBHLAB)[address] ALP [Catalytic activity/Vol] 95 U/L Normal 38-[address] [facility] Comment on above: Performed By: #### L [id number], [id number] ####Claims Investigator: RUTH ANN BRAGG ([phone])[facility] ([facility])[address] ALT [Catalytic activity/Vol] 21 U/L Normal 0-[address] [facility] Comment on above: Performed By: #### L [id number], [id number] ####Claims Investigator: RUTH ANN BRAGG ([id number])[facility] (SBHLAB)[address] Anion gap [Moles/Vol] 8 mmol/L Normal 3-13 [facility] Comment on above: Performed By: #### L [id number], [id number] ####Claims Investigator: RUTH ANN BRAGG ([id number])[facility] ([facility])[address] AST [Catalytic activity/Vol] 36 U/L Normal 15-46 [facility] Comment on above: Performed By: #### L [id number], [id number] ####Claims Investigator: RUTH ANN BRAGG ([id number])[facility] ([facility])[address] Bilirubin [Mass/Vol] 1.0 mg/dL Normal 0.2-1.3 [facility] Comment on above: Performed By: #### L [id number], [id number] ####Claims Investigator: RUTH ANN BRAGG ([id number])[facility] ([facility])[address] Calcium [Mass/Vol] 8.4 mg/dL Normal 8.4-10.4 [facility] Comment on above: Performed By: #### L [id number], [id number] ####Claims Investigator: RUTH ANN BRAGG ([id number])[facility] ([facility])[address] [place] [address] [place] Chloride [Moles/Vol] 104 mmol/L Normal 98-107 [facility] Comment on above: Performed By: #### L [id number], [id number] ####Claims Investigator: RUTH ANN BRAGG ([id number])[facility] ([facility])[address] [place] [address] [place] CO2 [Moles/Vol] 22 mmol/L Normal 22-30 [facility] Comment on above: Performed By: #### L [id number], [id number] ####Claims Investigator: RUTH ANN BRAGG ([id number])[facility] ([facility])[address] [place] [address] [place] Creatinine [Mass/Vol] 1.69 mg/dL High 0.52-1.04 [facility] Comment on above: Performed By: #### L [id number], [id number] ####Claims Investigator: RUTH ANN BRAGG ([id number])[facility] (SBHLAB)[address] GLOMERULAR FILTRATION RATE ML/MIN/1.73 SQ M.PREDICTED 30.8 mL/min/1.73m*2 Low >60.0 [facility] Comment on above: Result Comment: Calc ulation based on the Chronic Kidney Disease Epidemiology Collaboration (CKD-EPI) equation refit without adjustment for race Performed By: #### L [id number], [id number] ####Claims Investigator: RUTH ANN BRAGG ([id number])[facility] (SBHLAB)[address] Glucose [Mass/Vol] 107 mg/dL High 70-100 [facility] Comment on above: Performed By: #### L [id number], [id number] ####Claims Investigator: RUTH ANN BRAGG ([id number])[facility] ([facility])[address] Potassium [Moles/Vol] 3.8 mmol/L Normal 3.5-5.1 [facility] Comment on above: Performed By: #### L [id number], [id number] ####Claims Investigator: RUTH ANN BRAGG ([phone])[facility] (SBHLAB)[address] [place] [address] [place] Protein [Mass/Vol] 6.0 g/dL Low 6.3-8.2 [facility] Comment on above: Performed By: #### L [id number], [id number] ####Claims Investigator: RUTH ANN BRAGG ([phone])[facility] ([facility])[address] [place] [address] [place] Sodium [Moles/Vol] 135 mmol/L Normal 135-145 [facility] Comment on above: Performed By: #### L [id number], [id number] ####Claims Investigator: RUTH ANN BRAGG ([id number])[facility] ([facility])[address] Urea nitrogen [Mass/Vol] 34 mg/dL High 7-17 [facility] Comment on above: Performed By: #### L [id number], [id number] ####Claims Investigator: RUTH ANN BRAGG ([id number])[facility] (SBHLAB)[address] Comprehensive metabolic 1998 panelon 02-01-2024 Albumin [Mass/Vol] 2.9 g/dL Low 3.5 - 5.0 g/dL [facility] ALP [Catalytic activity/Vol] 95 U/L 38 - 126 U/L [facility] ALT [Catalytic activity/Vol] 21 U/L 0 - 34 U/L [facility] Anion gap [Moles/Vol] 8 mmol/L 3 - 13 mmol/L [facility] AST [Catalytic activity/Vol] 36 U/L 15 - 46 U/L [facility] Bilirubin [Mass/Vol] 1.0 mg/dL 0.2 - 1 .3 mg/dL [facility] Calcium [Mass/Vol] 8.4 mg/dL 8.4 - 10. 4 mg/dL [facility] Chloride [Moles/Vol] 104 mmol/L 98 - 10 7 mmol/L [facility] CO2 [Moles/Vol] 22 mmol/L 22 - 30 mmol/L [facility] Creatinine [Mass/Vol] 1.69 mg/dL High 0.52 - 1.04 mg/dL [facility] GFR/1.73 sq M.predicted MDRD (S/P/Bld) [Vol rate/Area] 30.8 mL/min/{1.73_m2} Low - PINF [facility] Comment on above: Calculation based on the Chronic Kidney Disease Epidemiology Collaboration (CKD-EPI) equation refit without adjustment for race Glucose [Mass/Vol] 107 mg/dL High 70 - 100 mg/dL [facility] Interpretation and review of laboratory results Abnormal [facility] Potassium [Moles/Vol] 3.8 mmol/L 3.5 - 5.1 mmol/L [facility] Protein [Mass/Vol] 6.0 g/dL Low 6.3 - 8.2 g/dL [facility] Sodium [Moles/Vol] 135 mmol/L 135 - 145 mmol/L [facility] Urea nitrogen [Mass/Vol] 34 mg/dL High 7 - 17 mg/dL [facility] Laboratory - Chemistry and C hemistry - challengeon 02-01-2024 Glucose [Mass/Vol] 183 mg/dL High 70 - 100 mg/dL [facility] Glucose [Mass/Vol] 175 mg/dL High 70 - 100 mg/dL [facility] Glucose [Mass/Vol] 149 mg/dL High 70 - 100 mg/dL [facility] Glucose [Mass/Vol] 114 mg/dL High 70 - 100 mg/dL [facility] Magnesium [Mass/Vol] 2.2 mg/dL 1.6 - 2 .3 mg/dL [facility] Laboratory - Hematology and Cell countson 02-01-2024 Basophils (Bld) [#/Vol] 0.1 10*3/uL 0.0 - 0.2 10*3/uL [facility] Basophils/100 WBC (Bld) 1 % 0 - 2 % [facility] cells LM Ql (Bld) Slight Abnormal (none) [facility] Eosinophils (Bld) [#/Vol] 0.4 10*3/uL 0. 0 - 0.5 10*3/uL [facility] Eosinophils/100 WBC (Bld) 7 % High 0 - 6 % [facility] Lymphocytes (Bld) [#/Vol] 0.5 10*3/uL Low 1. 0 - 4.3 10*3/uL [facility] Lymphocytes/100 WBC (Bld) 8 % Low 15 - 45 % [facility] Monocytes (Bld) [#/Vol] 0.6 10*3/uL 0.0 - 0.9 10*3/uL [facility] Monocytes/100 WBC (Bld) 9 % 5 - 13 % [facility] Neutrophils (Bld) [#/Vol] 4.8 10*3/uL 1. 8 - 7.5 10*3/uL [facility] RBC morphology finding Nom (Bld) abnormal [facility] Segmented neutrophils/100 WBC (Bld) 75 % 38 - 82 % [facility] MAGNESIUMon 02-01-2024 Magnesium [Mass/Vol] 2.2 mg/dL Normal 1.6-2.3 [facility] Comment on above: Performed By: #### L [id number], [id number] ####Claims Investigator: RUTH ANN BRAGG ([phone])[facility] (SBHLAB)[address] [place] [address] [place] MANUAL DIFFERENTIAL (CELLAVI KRISTIAN)on 02-01-2024 BAND NEUTROPHILS TOTAL PER COUNTED LEUKOCYTES BY MANUAL COUNT Normal [facility] Comment on above: Performed By: #### L [id number], [id number] ####Claims Investigator: RUTH ANN HERRONSHELTON ([phone])[facility] ([facility])[address] [place] [address] [place] BASOPHILS (10*3/UL) IN BLOOD-CELLAVISION 0.1 10*3/uL Normal 0.0-0.[address] [facility] Comment on above: Performed By: #### L [id number], [id number] ####Claims Investigator: RUTH ANN OBREGONWILTON ([id number])[facility] ([facility])[address] [place] [address] [place] BASOPHILS TOTAL PER COUNTED LEUKOCYTES BY MANUAL COUNT [address] [facility] Comment on above: Performed By: #### L [id number], [id number] ####Claims Investigator: RUTH ANN BRAGG ([phone])[facility] ([facility])[address] [place] [address] [place] BASOPHILS/100 LEUKOCYTES IN BLOOD-CELLAVISION 1 % Normal 0-2 [facility] Comment on above: Performed By: #### L [id number], [id number] ####Claims Investigator: RUTH ANN BRAGG ([phone])[facility] (SB[facility])[address] [place] [address] [place] BLASTS TOTAL PER COUNTED LEUKOCYTES BY MANUAL COUNT Normal [facility] Comment on above: Performed By: #### L [id number], [id number] ####Claims Investigator: RUTH ANN BRAGG ([id number])[facility] (SB[facility])[address] [place] [address] [place] LIDA CELLS PRESENCE IN BLOOD BY LIGHT MICROSCOPY Slight Abnormal (none) [facility] Comment on above: Performed By: #### L [id number], [id number] ####Claims Investigator: RUTH ANN OBREGONWILTON ([phone])[facility] (SBHLAB)[address] [place] [address] [place] EOSINOPHILS (10*3/UL) IN BLOOD-CELLAVISION 0.4 10*3/uL Normal 0.0-0.[address] [facility] Comment on above: Performed By: #### L [id number], [id number] ####Claims Investigator: RUTH ANN OBREGONWILTON ([phone])[facility] ([facility])[address] [place] [address] [place] EOSINOPHILS TOTAL PER COUNTED LEUKOCYTES BY MANUAL COUNT 7 High 0-[address] [facility] Comment on above: Performed By: #### L [id number], [id number] ####Claims Investigator: RUTH ANN OBREGONWILTON ([id number])[facility] ([facility])[address] [place] [address] [place] EOSINOPHILS/100 LEUKOCYTES IN BLOOD-CELLAVISION 7 % High 0-[address] [facility] Comment on above: Performed By: #### L [id number], [id number] ####Claims Investigator: RUTH ANN OBREGONWILTON ([id number])[facility] ([facility])[address] [place] [address] [place] LYMPHOCYTES (10*3/UL) IN BLOOD-CELLAVISION 0.5 10*3/uL Low 1.0-4.[address] [facility] Comment on above: Performed By: #### L [id number], [id number] ####Claims Investigator: RUTH ANN HERRONSHELTON ([phone])[facility] ([facility])[address] [place] [address] [place] LYMPHOCYTES TOTAL PER COUNTED LEUKOCYTES BY MANUAL COUNT [address] [facility] Comment on above: Performed By: #### L [id number], [id number] ####Claims Investigator: RUTH ANN HERRONSHELTON ([id number])[facility] ([facility])[address] [place] [address] [place] LYMPHOCYTES/100 LEUKOCYTES IN BLOOD-CELLAVISION 8 % Low 15-45 [facility] Comment on above: Performed By: #### L [id number], [id number] ####Claims Investigator: RUTH ANN BRAGG ([id number])[facility] (SBHLAB)[address] [place] [address] [place] METAMYELOCYTES TOTAL PER COUNTED LEUKOCYTES BY MANUAL COUNT Normal [facility] Comment on above: Performed By: #### L [id number], [id number] ####Claims Investigator: RUTH ANN BRAGG ([id number])[facility] ([facility])[address] [place] [address] [place] MONOCYTES (10*3/UL) IN BLOOD-CELLAVISION 0.6 10*3/uL Normal 0.0-0.9 [facility] Comment on above: Performed By: #### L [id number], [id number] ####Claims Investigator: RUTH ANN BRAGG ([phone])[facility] ([facility])[address] [place] [address] [place] MONOCYTES TOTAL PER COUNTED LEUKOCYTES BY MANUAL COUNT 9 Normal [facility] Comment on above: Performed By: #### L [id number], [id number] ####Claims Investigator: RUTH ANN BRAGG ([id number])[facility] ([facility])[address] [place] [address] [place] MONOCYTES/100 LEUKOCYTES IN BLOOD-TOMMIE 9 % Normal 5-13 [facility] Comment on above: Performed By: #### L [id number], [id number] ####Claims Investigator: RUTH ANN BRAGG ([id number])[facility] ([facility])[address] [place] [address] [place] MYELOCYTES COUNTED BY MANUAL COUNT [facility] Comment on above: Performed By: #### L [id number], [id number] ####Claims Investigator: RUTH ANN BRAGG ([phone])[facility] ([facility])[address] [place] [address] [place] NEUTROPHILS TOTAL PER COUNTED LEUKOCYTES BY MANUAL COUNT 75 Normal [facility] Comment on above: Performed By: #### L [id number], [id number] ####Claims Investigator: RUTH ANN BRAGG ([phone])[facility] ([facility])[address] [place] [address] [place] PROMYELOCYTES TOTAL PER COUNTED LEUKOCYTES BY MANUAL COUNT Normal [facility] Comment on above: Performed By: #### L [id number], [id number] ####Claims Investigator: RUTH ANN BRAGG ([id number])[facility] ([facility])[address] [place] [address] [place] RBC MORPHOLOGY IN BLOOD abnormal Normal [facility] Comment on above: Performed By: #### L [id number], [id number] ####Claims Investigator: RUTH ANN BRAGG ([id number])[facility] ([facility])[address] SEGMENTED NEUTROPHILS (10*3/UL) IN BLOOD-CELLAVISION 4.8 10*3/uL Normal 1.8-7.5 [facility] Comment on above: Performed By: #### L [id number], [id number] ####Claims Investigator: RUTH ANN BRAGG ([id number])[facility] ([facility])[address] [place] [address] [place] SEGMENTED NEUTROPHILS/100 LEUKOCYTES-CE 75 % Normal 38-82 [facility] Comment on above: Performed By: #### L [id number], [id number] ####Claims Investigator: RUTH ANN BRAGG ([phone])[facility] ([facility])[address] [place] [address] [place] UNCLASSIFIED CELLS TOTAL PER COUNTED LEUKOCYTES BY MANUAL COUNT Normal [facility] Comment on above: Performed By: #### L [id number], [id number] ####Claims Investigator: RUTH ANN BRAGG ([id number])[facility] ([facility])[address] [place] [address] [place] VARIANT LYMPHOCYTES TOTAL PER COUNTED LEUKOCYTES BY MANUAL COUNT Normal [facility] Comment on above: Performed By: #### L [id number], [id number] ####Claims Investigator: RUTH ANN BRAGG ([id number])[facility] (SBHLAB)[address] [place] [address] Magnesium [Mass/Vol]on 01-31 Interpretation and review of laboratory results Normal [facility] No Panel Informationon 01-31 Interpretation and review of laboratory results Abnormal [facility] Performed by: [facility], [address] [place] [address] CLIA ID: [id number] [facility] Interpretation and review of laboratory results Abnormal [facility] Performed by: [facility], [address] [place] [address] CLIA ID: [id number] [facility] Interpretation and review of laboratory results Abnormal [facility] Performed by: [facility], [address] [place] [address] CLIA ID: [id number] [facility] Interpretation and review of laboratory results Abnormal [facility] Performed by: [facility], [address] [place] [address] CLIA ID: [id number] [facility] Atypical Lymphocytes Manual [facility] Bands Manual [facility] Basophils Manual 1 [facility] Blasts [facility] E[facility] 7 High 0 - 1 [facility] Lymphocytes Manual 8 [facility] Metamyelocytes Manual [facility] Monocytes Manual 9 [facility] Myelocytes Manual [facility] ealth Neutrophils Manual 75 [facility] Promyelocytes Manual [facility] Unclassified Cells, Manual [facility] Radiology Study observation (narrative) [facility] Rad[facility] Study observation ([facility]arrative) [facility] Rad[facility] Study observation (narrative) [facility] Rad[facility] Study observation (narrative) [facility] No Panel InformationOrdered By: Jr Chase on 02-01-2024 Interpretation and review of laboratory results Abnormal [facility] Progress Noteon 02-01-2024 Progress Note Normal [facility] Progress Note Normal [facility] Progress Note Normal [facility] [id number] 01-31-2024 [id number] Discharge plan is SNF. HCL to sign off. Please re-consult if needed. Normal [facility] Bacteria identified Cx Nom ( U)Ordered By: Farideh Aguilar on 01-31-2024 Interpretation and review of laboratory results Abnormal [facility] CARECOORDon 01-31-2024 [facility] Normal [facility]note 3[facility] is able to accept. Did request that they submit for insurance auth. . Normal [facility] CARECOCHITTENANGO Normal [facility] CBC W Auto Differential pane l (Bld)Ordered By: Kathya Dotson on 01-31-2024 Erythrocyte distribution width (RBC) [Ratio] 13.7 % 11.5 - 15.0 % [facility] Hematocrit (Bld) [Volume fraction] 28.7 % Low 35.0 - 47.0 % [facility] Hemoglobin (Bld) [Mass/Vol] 9.5 g/dL Low 11.7 - 16.0 g/dL [facility] Interpretation and review of laboratory results Abnormal [facility] IPF 4 [facility] MCH (RBC) [Entitic mass] 32.3 pg 26. 0 - 34.0 pg [facility] MCHC (RBC) [Mass/Vol] 33.1 % 30.5 - 36.0 % [facility] MCV (RBC) [Entitic vol] 97.6 fL 77.0 - 99.0 fL [facility] Platelet mean volume (Bld) [Entitic vol] 11.9 fL 9.0 - 12.7 fL [facility] Platelets (Bld) [#/Vol] 83 10*3/uL Low 140 - 440 10*3/uL [facility] RBC (Bld) [#/Vol] 2.94 10*6/uL Low 3.80 - 5.2 0 10*6/uL [facility] WBC (Bld) [#/Vol] 8.8 10*3/uL 3.6 - 10.7 10*3/uL [facility] CBC WITH AUTO DIFFERENTIALon 01-31-2024 Erythrocyte distribution width (RBC) [Ratio] 13.7 % Normal 11.5-15.0 [facility] Comment on above: Performed By: #### L [id number], [id number] ####Claims Investigator: RUTH ANN YEMI ([id number])[facility] (SBHLAB)[address] Hematocrit (Bld) [Volume fraction] 28.7 % Low 35.0-47.[address] [facility] Comment on above: Performed By: #### L [id number], [id number] ####Claims Investigator: RUTH ANN YEMI ([id number])[facility] [place] (SBHLAB)[address] Hemoglobin (Bld) [Mass/Vol] 9.5 g/dL Low 11.7-16.[address] [facility] Comment on above: Performed By: #### L [id number], [id number] ####Claims Investigator: RUTH ANN YEMI ([id number])[facility] (SBHLAB)[address] IPF [address] [facility] Comment on above: Performed By: #### L [id number], [id number] ####Claims Investigator: RUTH ANN YEMI ([id number])[facility] [place] (SBHLAB)[address] MCH (RBC) [Entitic mass] 32.3 pg Normal 26.0-34.[address] [facility] Comment on above: Performed By: #### L [id number], [id number] ####Claims Investigator: RUTH ANN OBREGONWILTON ([id number])[facility] (SBHLAB)[address] MCHC 33.1 % Normal 30.5-36.[address] [facility] Comment on above: Performed By: #### L [id number], [id number] ####Claims Investigator: RUTH ANN HERRONSHELTON ([id number])[facility] (SBHLAB)[address] MCV (RBC) [Entitic vol] 97.6 fL Normal 77.0-99.0 S [facility] Comment on above: Performed By: #### L [id number], [id number] ####Claims Investigator: RUTH ANN BRAGG ([id number])[facility] (SBHLAB)[address] Platelet mean volume (Bld) [Entitic vol] 11.9 fL Normal 9.0-12.7 [facility] Comment on above: Performed By: #### L [id number], [id number] ####Claims Investigator: RUTH ANN BRAGG ([id number])[facility] ([facility])[address] Platelets (Bld) [#/Vol] 83 10*3/uL Low 140-440 [facility] Comment on above: Performed By: #### L [id number], [id number] ####Claims Investigator: RUTH ANN BRAGG ([id number])[facility] (SBHLAB)[address] RBC (Bld) [#/Vol] 2.94 10*6/uL Low 3.80-5.20 [facility] Comment on above: Performed By: #### L [id number], [id number] ####Claims Investigator: RUTH ANN BRAGG ([id number])[facility] (SBHLAB)[address] WBC (Bld) [#/Vol] 8.8 10*3/uL Normal 3.6-10.7 [facility] Comment on above: Performed By: #### L [id number], [id number] ####Claims Investigator: RUTH ANN BRAGG ([id number])[facility] (SBHLAB)[address] COMPREHENSIVE METABOLIC PANE Smith 01-31-2024 Albumin [Mass/Vol] 2.7 g/dL Low 3.5-5.0 [facility] Comment on above: Performed By: #### L [id number], [id number] ####Claims Investigator: RUTH ANN BRGAG ([id number])[facility] ([facility])[address] [place] [address] [place] ALP [Catalytic activity/Vol] 52 U/L Normal 38-126 [facility] Comment on above: Performed By: #### L [id number], [id number] ####Claims Investigator: RUTH ANN BRAGG ([id number])[facility] (SB[facility]AB)[address] ALT [Catalytic activity/Vol] 19 U/L Normal 0-34 [facility] Comment on above: Performed By: #### L [id number], [id number] ####Claims Investigator: RUTH ANN BRAGG ([id number])[facility] ([facility])[address] Anion gap [Moles/Vol] 8 mmol/L Normal 3-13 [facility] Comment on above: Performed By: #### L [id number], [id number] ####Claims Investigator: RUTH ANN BRAGG ([id number])[facility] (SBHLAB)[address] AST [Catalytic activity/Vol] 32 U/L Normal 15-46 [facility] Comment on above: Performed By: #### L [id number], [id number] ####Claims Investigator: RUTH ANN BRAGG ([id number])[facility] ([facility])[address] Bilirubin [Mass/Vol] 1.3 mg/dL Normal 0.2-1.3 [facility] Comment on above: Performed By: #### L [id number], [id number] ####Claims Investigator: RUTH ANN BRAGG ([id number])[facility] ([facility])[address] [place] [address] [place] Calcium [Mass/Vol] 8.7 mg/dL Normal 8.4-10.4 [facility] Comment on above: Performed By: #### L [id number], LAB17 ####Claims Investigator: RUTH ANN BRAGG ([id number])[facility] (SB[facility])[address] [place] [address] [place] Chloride [Moles/Vol] 105 mmol/L Normal 98-107 [facility] Comment on above: Performed By: #### L [id number], LAB17 ####Claims Investigator: RUTH ANN BRAGG ([id number])[facility] (SBHLAB)[address] CO2 [Moles/Vol] 23 mmol/L Normal 22-30 [facility] Comment on above: Performed By: #### L AB103, LAB17 ####Claims Investigator: RUTH ANN BRAGG ([id number])[facility] (SBHLAB)[address] Creatinine [Mass/Vol] 1.62 mg/dL High 0.52-1.04 [facility] Comment on above: Performed By: #### L AB103, LAB17 ####Claims Investigator: RUTH ANN BRAGG ([id number])[facility] (SBHLAB)[address] GLOMERULAR FILTRATION RATE ML/MIN/1.73 SQ M.PREDICTED 32.4 mL/min/1.73m*2 Low >60.0 [facility] Comment on above: Result Comment: Calc ulation based on the Chronic Kidney Disease Epidemiology Collaboration (CKD-EPI) equation refit without adjustment for race Performed By: #### L AB103, LAB17 ####Claims Investigator: RUTH ANN BRAGG ([id number])[facility] (SBHLAB)[address] Glucose [Mass/Vol] 141 mg/dL High 70-100 [facility] Comment on above: Performed By: #### L AB103, LAB17 ####Claims Investigator: RUTH ANN BRAGG ([id number])[facility] (SBHLAB)[address] Potassium [Moles/Vol] 3.2 mmol/L Low 3.5-5.1 [facility] Comment on above: Performed By: #### L AB103, LAB17 ####Claims Investigator: RUTH ANN BRAGG ([id number])[facility] ([facility])[address] Protein [Mass/Vol] 5.8 g/dL Low 6.3-8.2 [facility] Comment on above: Performed By: #### L AB103, LAB17 ####Claims Investigator: RUTH ANN PRITCHARDCER ([id number])[facility] ([facility])[address] Sodium [Moles/Vol] 136 mmol/L Normal 135-145 [facility] Comment on above: Performed By: #### L AB103, LAB17 ####Claims Investigator: RUTH ANN OBREGONDavidSHELTON ([id number])[facility] ([facility])[address] Urea nitrogen [Mass/Vol] 26 mg/dL High 7-17 [facility] Comment on above: Performed By: #### L AB103, LAB17 ####Claims Investigator: RUTH ANN HERRONSHELTON ([id number])[facility] ([facility])[address] Comprehensive metabolic 1998 panelon 01-31-2024 Albumin [Mass/Vol] 2.7 g/dL Low 3.5 - 5.0 g/dL [facility] ALP [Catalytic activity/Vol] 52 U/L 38 - 126 U/L [facility] ALT [Catalytic activity/Vol] 19 U/L 0 - 34 U/L [facility] Anion gap [Moles/Vol] 8 mmol/L 3 - 13 mmol/L [facility] AST [Catalytic activity/Vol] 32 U/L 15 - 46 U/L [facility] Bilirubin [Mass/Vol] 1.3 mg/dL 0.2 - 1 .3 mg/dL [facility] Calcium [Mass/Vol] 8.7 mg/dL 8.4 - 10. 4 mg/dL [facility] Chloride [Moles/Vol] 105 mmol/L 98 - 10 7 mmol/L [facility] CO2 [Moles/Vol] 23 mmol/L 22 - 30 mmol/L [facility] Creatinine [Mass/Vol] 1.62 mg/dL High 0.52 - 1.04 mg/dL [facility] GFR/1.73 sq M.predicted MDRD (S/P/Bld) [Vol rate/Area] 32.4 mL/min/{1.73_m2} Low - PINF [facility] Comment on above: Calculation based on the Chronic Kidney Disease Epidemiology Collaboration (CKD-EPI) equation refit without adjustment for race Glucose [Mass/Vol] 141 mg/dL High 70 - 100 mg/dL [facility] Interpretation and review of laboratory results Abnormal [facility] Potassium [Moles/Vol] 3.2 mmol/L Low 3.5 - 5.1 mmol/L [facility] Protein [Mass/Vol] 5.8 g/dL Low 6.3 - 8.2 g/dL [facility] Sodium [Moles/Vol] 136 mmol/L 135 - 145 mmol/L [facility] Urea nitrogen [Mass/Vol] 26 mg/dL High 7 - 17 mg/dL [facility] Consulton 01-31-2024 Consult Vancomycin therapy has been discontinued by Dr. Gonzalez on 01/30. Thank you for the consult. Pharmacy signing off for vancomycin dosing. Ginny Gramajo [facility], Date: 01/31/24 Time: 10:32 AM Normal [facility] IDNon 01-31-2024 IDN Normal [facility] Laboratory - Chemistry and C hemistry - challengeon 01-31-2024 Glucose [Mass/Vol] 216 mg/dL High 70 - 100 mg/dL [facility] Glucose [Mass/Vol] 155 mg/dL High 70 - 100 mg/dL [facility] Glucose [Mass/Vol] 203 mg/dL High 70 - 100 mg/dL [facility] Glucose [Mass/Vol] 148 mg/dL High 70 - 100 mg/dL [facility] Magnesium [Mass/Vol] 1.5 mg/dL Low 1.6 - 2 .3 mg/dL [facility] Laboratory - Hematology and Cell countson 01-31-2024 Basophils (Bld) [#/Vol] 0.1 10*3/uL 0.0 - 0.2 10*3/uL [facility] Basophils/100 WBC (Bld) 1 % 0 - 2 % [facility] Eosinophils (Bld) [#/Vol] 0.1 10*3/uL 0. 0 - 0.5 10*3/uL [facility] Eosinophils/100 WBC (Bld) 1 % 0 - 6 % [facility] Lymphocytes (Bld) [#/Vol] 0.5 10*3/uL Low 1. 0 - 4.3 10*3/uL [facility] Lymphocytes/100 WBC (Bld) 6 % Low 15 - 45 % [facility] Monocytes (Bld) [#/Vol] 0.9 10*3/uL 0.0 - 0.9 10*3/uL [facility] Monocytes/100 WBC (Bld) 10 % 5 - 13 % [facility] Neutrophils (Bld) [#/Vol] 7.2 10*3/uL 1. 8 - 7.5 10*3/uL [facility] RBC morphology finding Nom (Bld) Normal [facility] Segmented neutrophils/100 WBC (Bld) 82 % 38 - 82 % [facility] Laboratory - Microbiology an d Antimicrobial susceptibilityOrdered By: Farideh Aguilar on 01-31-2024 Bacteria identified Cx Nom (U) >100,000 CFU/mL Escherichia coli Abnormal [facility] MAGNESIUMon 01-31-2024 Magnesium [Mass/Vol] 1.5 mg/dL Low 1.6-2.3 [facility] Comment on above: Performed By: #### L [id number], LAB17 ####Claims Investigator: RUTH ANN BRAGG ([id number])[facility] ([facility])[address] [place] [address] MANUAL DIFFERENTIAL (CELLAVI KRISTIAN)on 01-31-2024 BAND NEUTROPHILS TOTAL PER COUNTED LEUKOCYTES BY MANUAL COUNT Normal [facility] Comment on above: Performed By: #### L [id number], [id number] ####Claims Investigator: RUTH ANN BRAGG ([id number])[facility] ([facility] [place] [address] BASOPHILS (10*3/UL) IN BLOOD-CELLAVISION 0.1 10*3/uL Normal 0.0-0.[address] [facility] Comment on above: Performed By: #### L [id number], [id number] ####Claims Investigator: RUTH ANN BRAGG ([id number])[facility] (SBHLAB)[address] [place] [address] [place] BASOPHILS TOTAL PER COUNTED LEUKOCYTES BY MANUAL COUNT [address] [facility] Comment on above: Performed By: #### L [id number], [id number] ####Claims Investigator: RUTH ANN BRAGG ([id number])[facility] (SBHLAB)[address] [place] [address] [place] BASOPHILS/100 LEUKOCYTES IN BLOOD-CELLAVISION 1 % Normal 0-2 [facility] Comment on above: Performed By: #### L [id number], [id number] ####Claims Investigator: RUTH ANN PRITCHARDCER ([id number])[facility] (SBHLAB)[address] [place] [address] [place] BLASTS TOTAL PER COUNTED LEUKOCYTES BY MANUAL COUNT Normal [facility] Comment on above: Performed By: #### L [id number], [id number] ####Claims Investigator: RUTH ANN PRITCHARDCER ([id number])[facility] ([facility])[address] [place] [address] [place] EOSINOPHILS (10*3/UL) IN BLOOD-CELLAVISION 0.1 10*3/uL Normal 0.0-0.[address] [facility] Comment on above: Performed By: #### L [id number], [id number] ####Claims Investigator: RUTH ANN BRAGG ([phone])[facility] ([facility])[address] [place] [address] [place] EOSINOPHILS TOTAL PER COUNTED LEUKOCYTES BY MANUAL COUNT 1 Normal 0-[address] [facility] Comment on above: Performed By: #### L [id number], [id number] ####Claims Investigator: RUTH ANN PRITCHARDCER ([id number])[facility] ([facility])[address] [place] [address] [place] EOSINOPHILS/100 LEUKOCYTES IN BLOOD-CELLAVISION 1 % Normal 0-[address] [facility] Comment on above: Performed By: #### L [id number], [id number] ####Claims Investigator: RUTH ANN BRAGG ([id number])[facility] (SBHLAB)[address] [place] [address] [place] LYMPHOCYTES (10*3/UL) IN BLOOD-CELLAVISION 0.5 10*3/uL Low 1.0-4.3 [facility] Comment on above: Performed By: #### L [id number], [id number] ####Claims Investigator: RUTH ANN BRAGG ([id number])[facility] (SBHLAB)[address] [place] [address] [place] LYMPHOCYTES TOTAL PER COUNTED LEUKOCYTES BY MANUAL COUNT 6 Normal [facility] Comment on above: Performed By: #### L [id number], [id number] ####Claims Investigator: RUTH ANN BRAGG ([id number])[facility] ([facility])[address] [place] [address] [place] LYMPHOCYTES/100 LEUKOCYTES IN BLOOD-CELLAVISION 6 % Low 15-45 [facility] Comment on above: Performed By: #### L [id number], [id number] ####Claims Investigator: RUTH ANN BRAGG ([phone])[facility] ([facility])[address] [place] [address] [place] METAMYELOCYTES TOTAL PER COUNTED LEUKOCYTES BY MANUAL COUNT Normal [facility] Comment on above: Performed By: #### L [id number], [id number] ####Claims Investigator: RUTH ANN BRAGG ([phone])[facility] ([facility])[address] [place] [address] [place] MONOCYTES (10*3/UL) IN BLOOD-CELLAVISION 0.9 10*3/uL Normal 0.0-0.9 [facility] Comment on above: Performed By: #### L [id number], [id number] ####Claims Investigator: RUTH ANN BRAGG ([id number])[facility] ([facility])[address] [place] [address] [place] MONOCYTES TOTAL PER COUNTED LEUKOCYTES BY MANUAL COUNT 10 Normal [facility] Comment on above: Performed By: #### L [id number], [id number] ####Claims Investigator: RUTH ANN [id number])[facility] (SBHLAB)[address] [place] [address] [place] MONOCYTES/100 LEUKOCYTES IN BLOOD-TOMMIE 10 % Normal 5-13 [facility] Comment on above: Performed By: #### L [id number], [id number] ####Claims Investigator: RUTH ANN BRAGG ([id number])[facility] (SBHLAB)[address] [place] [address] [place] MYELOCYTES COUNTED BY MANUAL COUNT [facility] Comment on above: Performed By: #### L [id number], [id number] ####Claims Investigator: RUTH ANN BRAGG ([phone])[facility] (SBHLAB)[address] NEUTROPHILS TOTAL PER COUNTED LEUKOCYTES BY MANUAL COUNT 84 [facility] Comment on above: Performed By: #### L [id number], [id number] ####Claims Investigator: RUTH ANN BRAGG ([phone])[facility] ([facility])[address] PROMYELOCYTES TOTAL PER COUNTED LEUKOCYTES BY MANUAL COUNT [facility] Comment on above: Performed By: #### L [id number], [id number] ####Claims Investigator: RUTH ANN BRAGG ([id number])[facility] ([facility])[address] [place] [address] [place] RBC MORPHOLOGY IN BLOOD Normal Normal [facility] Comment on above: Performed By: #### L [id number], [id number] ####Claims Investigator: RUTH ANN BRAGG ([id number])[facility] ([facility])[address] [place] [address] [place] SEGMENTED NEUTROPHILS (10*3/UL) IN BLOOD-CELLAVISION 7.2 10*3/uL Normal 1.8-7.5 [facility] Comment on above: Performed By: #### L [id number], [id number] ####Claims Investigator: RUTH ANN BRAGG ([phone])[facility] (SBHLAB)[address] SEGMENTED NEUTROPHILS/100 LEUKOCYTES-CE 82 % Normal 38-82 [facility] Comment on above: Performed By: #### L [id number], [id number] ####Claims Investigator: RUTH ANN BRAGG ([id number])[facility] ([facility])[address] UNCLASSIFIED CELLS TOTAL PER COUNTED LEUKOCYTES BY MANUAL COUNT Normal [facility] Comment on above: Performed By: #### L [id number], [id number] ####Claims Investigator: RUTH ANN BRAGG ([phone])[facility] ([facility])[address] VARIANT LYMPHOCYTES TOTAL PER COUNTED LEUKOCYTES BY MANUAL COUNT Normal [facility] Comment on above: Performed By: #### L [id number], [id number] ####Claims Investigator: RUTH ANN BRAGG ([phone])[facility] ([facility])[address] [place] [address] Magnesium [Mass/Vol]on 01-30 Interpretation and review of laboratory results Abnormal [facility] No Panel Informationon 01-30 Interpretation and review of laboratory results Abnormal [facility] Performed by: [facility], [address] [place] [address] CLIA ID: [id number] [facility] Interpretation and review of laboratory results Abnormal [facility] Performed by: [facility], [address] [place] [address] CLIA ID: [id number] [facility] Interpretation and review of laboratory results Abnormal [facility] th Performed by: [facility], [address] [place] [address] CLIA ID: [id number] [facility] Interpretation and review of laboratory results Abnormal [facility] Performed by: [facility], [address] [place] [address] CLIA ID: [id number] [facility] Atypical Lymphocytes Manual [facility] Bands Manual [facility] Basophils Manual 1 [facility] Blasts [facility] Eosinophils Manual 1 0 - 1 [facility] Interpretation and review of laboratory results Abnormal [facility] Lymphocytes Manual 6 [facility] Metamyelocytes Manual [facility] Monocytes Manual 10 [facility] alth Myelocytes Manual [facility] ealth Neutrophils Manual 84 [facility] Promyelocytes Manual [facility] Unclassified Cells, Manual [facility] Radiology Study observation (narrative) [facility] Rad[facility] Study observation (narrative) [facility] Rad[facility] Study observation (narrative) [facility] Rad[facility] Study observation (narrative) [facility] Progress Noteon 01-31-2024 Progress Note Normal [facility] h System [facility] Progress [facility] Normal [facility] Progress Note Normal [facility] Progress Note Normal [facility] [id number] 01-30-2024 [id number] Legal Research Analyst following case for Discharge Needs. Normal [facility] CARECOORDon 01-30-2024 [place]OORD Continuing to await therapy evals and recommendations. Normal [facility] [place]OORD Normal [facility] CBC W Auto Differential pane l (Bld)Ordered By: Osiel White on 01-30-2024 Erythrocyte distribution width (RBC) [Ratio] 13.9 % 11.5 - 15.0 % [facility] Hematocrit (Bld) [Volume fraction] 31.6 % Low 35.0 - 47.0 % [facility] Hemoglobin (Bld) [Mass/Vol] 10.1 g/dL Low 11.7 - 16.0 g/dL [facility] Interpretation and review of laboratory results Abnormal [facility] th IPF 4 [facility] MCH (RBC) [Entitic mass] 31.9 pg 26. 0 - 34.0 pg [facility] MCHC (RBC) [Mass/Vol] 32.0 % 30.5 - 36.0 % [facility] MCV (RBC) [Entitic vol] 99.7 fL High 77.0 - 99.0 fL [facility] Platelet mean volume (Bld) [Entitic vol] 11.8 fL 9.0 - 12.7 fL [facility] Platelets (Bld) [#/Vol] 81 10*3/uL Low 140 - 440 10*3/uL [facility] RBC (Bld) [#/Vol] 3.17 10*6/uL Low 3.80 - 5.2 0 10*6/uL [facility] WBC (Bld) [#/Vol] 6.2 10*3/uL 3.6 - 10.7 10*3/uL [facility] CBC WITH AUTO DIFFERENTIALon 01-30-2024 Erythrocyte distribution width (RBC) [Ratio] 13.9 % Normal 11.5-15.0 [facility] Comment on above: Performed By: #### L [id number] ####Claims Investigator: RUTH ANN BRAGG ([id number])[facility] ([facility])[address] [place] [address] Hematocrit (Bld) [Volume fraction] 31.6 % Low 35.0-47.0 [facility] Comment on above: Performed By: #### L [id number] ####Claims Investigator: RUTH ANN BRAGG ([id number])[facility] ([facility])[address] [place] [address] Hemoglobin (Bld) [Mass/Vol] 10.1 g/dL Low 11.7-16.0 [facility] Comment on above: Performed By: #### L [id number] ####Claims Investigator: RUTH ANN BRAGG ([id number])[facility] [place] (SB[facility])[address] [place] [address] IPF 4 Normal [facility] Comment on above: Performed By: #### L [id number] ####Claims Investigator: RUTH ANN BRAGG ([id number])[facility] [place] ([facility])[address] [place] [address] MCH (RBC) [Entitic mass] 31.9 pg Normal 26.0-34.0 [facility] Comment on above: Performed By: #### L [id number] ####Claims Investigator: RUTH ANN BRAGG ([id number])[facility] [place] (SB[facility])[address] MCHC 32.0 % Normal 30.5-36.0 [facility] Comment on above: Performed By: #### L [id number] ####Claims Investigator: RUTH ANN BRAGG ([id number])[facility] (SBHLAB)[address] MCV (RBC) [Entitic vol] 99.7 fL High 77.0-99.0 [facility] Comment on above: Performed By: #### L [id number] ####Claims Investigator: RUTH ANN BRAGG ([id number])[facility] [place] (SBHLAB)[address] Platelet mean volume (Bld) [Entitic vol] 11.8 fL Normal 9.0-12.7 [facility] Comment on above: Performed By: #### L [id number] ####Claims Investigator: RUTH ANN BRAGG ([id number])[facility] [place] (SBHLAB)[address] Platelets (Bld) [#/Vol] 81 10*3/uL Low 140-440 [facility] Comment on above: Performed By: #### L [id number] ####Claims Investigator: RUTH ANN BRAGG ([id number])[facility] [place] (SBHLAB)[address] RBC (Bld) [#/Vol] 3.17 10*6/uL Low 3.80-5.[address] [facility] Comment on above: Performed By: #### L [id number] ####Claims Investigator: RUTH ANN BRAGG ([id number])[facility] [place] ([facility])[address] [place] [address] [place] WBC (Bld) [#/Vol] 6.2 10*3/uL Normal 3.6-10.7 [facility] Comment on above: Performed By: #### L [id number] ####Claims Investigator: RUTH ANN BRAGG ([id number])[facility] ([facility])[address] COMPLETE URINALYSISon 2023 BACTERIA (#/HPF) IN URINE Few Abnormal Negative [facility] Comment on above: Performed By: #### L [id number] ####Claims Investigator: RUTH ANN BRAGG ([id number])[facility] (SBHLAB)[address] BILIRUBIN, TOTAL PRESENCE IN URINE Negative Normal Negative [facility] Comment on above: Performed By: #### L [id number] ####Claims Investigator: RUTH ANN BRAGG ([id number])[facility] ([facility])[address] Clarity (U) Turbid Abnormal Clear [facility] Comment on above: Performed By: #### L [id number] ####Claims Investigator: RUTH ANN BRAGG ([id number])[facility] ([facility])[address] Color (U) Yellow Normal Lt. Yellow [facility] Comment on above: Performed By: #### L [id number] ####Claims Investigator: RUTH ANN BRAGG ([id number])[facility] ([facility])[address] Glucose (U) [Mass/Vol] 200 mg/dL Abnormal Lillian l (<70) [facility] Comment on above: Performed By: #### L [id number] ####Claims Investigator: RUTH ANN BRAGG ([id number])[facility] HEMOGLOBIN PRESENCE IN URINE >1.0 Abnormal Negative [facility] Comment on above: Performed By: #### L [id number] ####Claims Investigator: RUTH ANN BRAGG ([id number])[facility] (SB[facility])[address] Ketones Ql (U) Negative Normal Negative [facility] Comment on above: Performed By: #### L [id number] ####Claims Investigator: RUTH ANN OBREGON-SHELTON ([id number])[facility] (SBHLAB)[address] LEUKOCYTE ESTERASE PRESENCE IN URINE BY TEST STRIP 75 Yomi/uL Abnormal Negative [facility] Comment on above: Performed By: #### L [id number] ####Claims Investigator: RUTH ANN YEMI ([id number])[facility] ([facility])[address] [place] [address] [place] MUCUS (#/LPF) IN URINE SEDIMENT Few Normal Negative [facility] Comment on above: Performed By: #### L [id number] ####Claims Investigator: RUTH ANN YEMI ([id number])[facility] ([facility])[address] NITRITE PRESENCE IN URINE Negative Normal Negative [facility] Comment on above: Performed By: #### L [id number] ####Claims Investigator: RUTH ANN OBREGONWILTON ([id number])[facility] ([facility])[address] pH (U) 5.5 [pH] Normal 5.0-8.[address] [facility] Comment on above: Performed By: #### L [id number] ####Claims Investigator: RUTH ANN HERRONSHELTON ([id number])[facility] ([facility])[address] Protein (U) [Mass/Vol] 50 mg/dL Abnormal Negative [facility] Comment on above: Performed By: #### L [id number] ####Claims Investigator: RUTH ANN OBREGONWILTON ([id number])[facility] ([facility])[address] [place] [address] [place] RBC (#/HPF) IN URINE SEDIMENT 51-100 Abnormal 0-[address] [facility] Comment on above: Performed By: #### L [id number] ####Claims Investigator: RUTH ANN HERRONSHELTON ([id number])[facility] ([facility])[address] Specific gravity (U) [Rel density] 1.015 Normal 1.005-1.[address] [facility] Comment on above: Performed By: #### L [id number] ####Claims Investigator: RUTH ANN BRAGG ([id number])[facility] [place] ([facility])[address] SQUAMOUS EPITHELIAL CELLS (#/HPF) IN URINE SEDIMENT 3-5 Normal 3-[address] [facility] Comment on above: Performed By: #### L [id number] ####Claims Investigator: RUTH ANN BRAGG ([id number])[facility] [place] ([facility])[address] UROBILINOGEN (MG/DL) IN URINE 2 mg/dL Abnormal Normal (0-1) [facility] Comment on above: Performed By: #### L [id number] ####Claims Investigator: RUTH ANN BRAGG ([id number])[facility] ([facility])[address] WBC (LEUKOCYTE) (#/HPF) IN URINE SEDIMENT 11-25 Abnormal 0-[address] [facility] Comment on above: Performed By: #### L [id number] ####Claims Investigator: RUTH ANN BRAGG ([id number])[facility] ([facility])[address] COMPREHENSIVE METABOLIC PANE Smith 01-30-2024 Albumin [Mass/Vol] 3.1 g/dL Low 3.5-5.0 [facility] Comment on above: Performed By: #### L [id number] ####Claims Investigator: RUTH ANN BRAGG ([id number])[facility] [place] ([facility])[address] [place] [address] [place] ALP [Catalytic activity/Vol] 79 U/L Normal 38-[address] [facility] Comment on above: Performed By: #### L [id number] ####Claims Investigator: RUTH ANN BRAGG ([id number])[facility] ([facility])[address] [place] [address] [place] ALT [Catalytic activity/Vol] 23 U/L Normal 0-34 [facility] Comment on above: Performed By: #### L AB17 ####Claims Investigator: RUTH ANN BRAGG ([id number])[facility] (HLAB)[address] Anion gap [Moles/Vol] 7 mmol/L Normal 3-13 [facility] Comment on above: Performed By: #### L [id number] ####Claims Investigator: RUTH ANN BRAGG ([id number])[facility])[address] AST [Catalytic activity/Vol] 40 U/L Normal 15-46 [facility] Comment on above: Performed By: #### L [id number] ####Claims Investigator: RUTH ANN BRAGG ([id number])[facility])[address] Bilirubin [Mass/Vol] 1.0 mg/dL Normal 0.2-1.3 [facility] Comment on above: Performed By: #### L AB17 ####Claims Investigator: RUTH ANN BRAGG ([id number])[facility])[address] Calcium [Mass/Vol] 8.8 mg/dL Normal 8.4-10.4 [facility] Comment on above: Performed By: #### L AB17 ####Claims Investigator: RUTH ANN BRAGG ([id number])[facility])[address] Chloride [Moles/Vol] 111 mmol/L High 98-107 [facility] Comment on above: Performed By: #### L AB17 ####Claims Investigator: RUTH ANN BRAGG ([id number])[facility] CO2 [Moles/Vol] 21 mmol/L Low 22-30 [facility] Comment on above: Performed By: #### L AB17 ####Claims Investigator: RUTH ANN BRAGG ([id number])[facility] ([facility])[address] [place] [address] [place] Creatinine [Mass/Vol] 1.58 mg/dL High 0.52-1.04 [facility] Comment on above: Performed By: #### L [id number] ####Claims Investigator: RUTH ANN BRAGG ([id number])[facility] ([facility])[address] [place] [address] [place] GLOMERULAR FILTRATION RATE ML/MIN/1.73 SQ M.PREDICTED 33.4 mL/min/1.73m*2 Low >60.0 [facility] Comment on above: Result Comment: Calc ulation based on the Chronic Kidney Disease Epidemiology Collaboration (CKD-EPI) equation refit without adjustment for race Performed By: #### L [id number] ####Claims Investigator: RUTH ANN BRAGG ([id number])[facility] [place] ([facility])[address] [place] [address] [place] Glucose [Mass/Vol] 148 mg/dL High 70-100 [facility] Comment on above: Performed By: #### L AB17 ####Claims Investigator: RUTH ANN BRAGG ([id number])[facility] [place] ([facility])[address] Potassium [Moles/Vol] 3.7 mmol/L Normal 3.5-5.1 [facility] Comment on above: Performed By: #### L AB17 ####Claims Investigator: RUTH ANN BRAGG ([id number])[facility] ([facility])[address] [place] [address] [place] Protein [Mass/Vol] 6.4 g/dL Normal 6.3-8.2 [facility] Comment on above: Performed By: #### L AB17 ####Claims Investigator: RUTH ANN BRAGG ([id number])[facility] ([facility])[address] [place] [address] [place] Sodium [Moles/Vol] 138 mmol/L Normal 135-145 [facility] Comment on above: Performed By: #### L AB17 ####Claims Investigator: RUTH ANN BRAGG ([id number])[facility] (SBHLAB)[address] Urea nitrogen [Mass/Vol] 30 mg/dL High 7-17 [facility] Comment on above: Performed By: #### L AB17 ####Claims Investigator: RUTH ANN OBREGONWILTON ([id number])[facility] (SBHLAB)[address] CRP [Mass/Vol]on 01-30-2024 Interpretation and review of laboratory results Abnormal [facility] Comprehensive metabolic 1998 panelon 01-30-2024 Albumin [Mass/Vol] 3.1 g/dL Low 3.5 - 5.0 g/dL [facility] ALP [Catalytic activity/Vol] 79 U/L 38 - 126 U/L [facility] ALT [Catalytic activity/Vol] 23 U/L 0 - 34 U/L [facility] Anion gap [Moles/Vol] 7 mmol/L 3 - 13 mmol/L [facility] AST [Catalytic activity/Vol] 40 U/L 15 - 46 U/L [facility] Bilirubin [Mass/Vol] 1.0 mg/dL 0.2 - 1 .3 mg/dL [facility] Calcium [Mass/Vol] 8.8 mg/dL 8.4 - 10. 4 mg/dL [facility] Chloride [Moles/Vol] 111 mmol/L High 98 - 10 7 mmol/L [facility] CO2 [Moles/Vol] 21 mmol/L Low 22 - 30 mmol/L [facility] Creatinine [Mass/Vol] 1.58 mg/dL High 0.52 - 1.04 mg/dL [facility] GFR/1.73 sq M.predicted MDRD (S/P/Bld) [Vol rate/Area] 33.4 mL/min/{1.73_m2} Low - PINF [facility] Comment on above: Calculation based on the Chronic Kidney Disease Epidemiology Collaboration (CKD-EPI) equation refit without adjustment for race Glucose [Mass/Vol] 148 mg/dL High 70 - 100 mg/dL [facility] Interpretation and review of laboratory results Abnormal [facility] Potassium [Moles/Vol] 3.7 mmol/L 3.5 - 5.1 mmol/L [facility] Protein [Mass/Vol] 6.4 g/dL 6.3 - 8.2 g/dL [facility] Sodium [Moles/Vol] 138 mmol/L 135 - 145 mmol/L [facility] Urea nitrogen [Mass/Vol] 30 mg/dL High 7 - 17 mg/dL [facility] IDNon 01-30-[address] [facility] IDN Normal [facility] Laboratory - Chemistry and C hemistry - challengeon 01-30-2024 Glucose [Mass/Vol] 180 mg/dL High 70 - 100 mg/dL [facility] Glucose [Mass/Vol] 185 mg/dL High 70 - 100 mg/dL [facility] Glucose [Mass/Vol] 179 mg/dL High 70 - 100 mg/dL [facility] Glucose [Mass/Vol] 169 mg/dL High 70 - 100 mg/dL [facility] Procalcitonin [Mass/Vol] 0.12 ng/mL High 0.0 0 - 0.09 ng/mL [facility] CRP [Mass/Vol] 18.3 mg/L High NINF - 10.0 mg/L [facility] No Panel Informationon 01-29 Interpretation and review of laboratory results Abnormal [facility] Performed by: [facility], [address] [place] [address] CLIA ID: [id number] [facility] Interpretation and review of laboratory results Abnormal [facility] Performed by: [facility], [address] [place] [id number] CLIA ID: [id number] [facility] Interpretation and review of laboratory results Abnormal [facility] Performed by: [facility], [address] [place] [id number] CLIA ID: [id number] [facility] No evidence of deep vein and superficial thrombosis in the visualized segments of the right lower extremity. No evidence of deep vein and superficial thrombosis in the visualized segments of the left lower extremity. Limited exam, espcially limited evaluation of the calf veins bilaterally. Limitations listed below. Right Lower Venous No evidence of deep vein and superficial thrombosis in the right lower extremity. Common Femoral Vein: Patent, normal phasicity, spontaneous, normal augmentation, compressible. Greater Saphenous Vein: Entire vessel patent, compressible Saphenofemoral Junction: Patent, compressible. Small Saphenous Vein: Patent, compressible. Profunda Femoral Vein: Patent. Proximal Femoral Vein: Patent, compressible. Middle Femoral Vein: Patent, normal phasicity, spontaneous, normal augmentation, compressible. Distal Femoral Vein: Spontaneous. Soleal Vein: Not visualized. Peroneal Vein: Not visualized. Left Lower Venous No evidence of deep vein and superficial thrombosis in the left lower extremity. Common Femoral Vein: Spontaneous, normal phasicity and normal augmentation. Greater Saphenous Vein: Enitre vessel patent, compressible. Saphenofemoral Junction: Patent, compressible. Profunda Femoral Vein: Patent. Proximal Femoral Vein: Patent, compressible. Middle Femoral Vein: Spontaneous, normal phasicity and normal augmentation. Distal Femoral Vein: Spontaneous. Popliteal Vein: Patent, normal phasicity, spontaneous, normal augmentation, compressible. Gastrocnemius Vein: Patent, compressible. Soleal Vein: Patent, compressible. Posterior Tibial Vein: Patent, compressible. Peroneal Vein: Patent, compressible. Casework Manager Details A arteaga scale, color Doppler imaging, spectral Doppler analysis and B-flow ultrasound was performed. During the study longitudinal and transverse views were obtained. Pulsed wave doppler was performed. The exam was performed with the patient in the supine position. Overall the study quality was technically difficult. Study was technically difficult due to: body habitus, bedside exam, diffuse subcutaneous edema and Leg pain-some areas unable to obtain compressions.. CV CPACS Interpretation and review of laboratory results Abnormal [facility]formed by: [facility], [address] [place] [address] CLIA ID: [id number] [facility] Radiology Study observation (narrative) [facility] Radiology Study observation (narrative) [facility] Radiology Study observation (narrative) [facility] Radiology Study observation (narrative) [facility] Nursing Noteon 01-30-2024 Nursing Note 01/29/24 2350, Pt having SOB expiratory wheezing,I gave her a PRN [place],Dr Morillo notified,he put an order for breathing treatment an chest x-ray. Normal [facility] Procalcitonin [Mass/Vol]on 0 01-30-2024 Interpretation and review of laboratory results Abnormal [facility] PCT <0.50 = Low risk of severe sepsis and/or septic shock. PCT >2.00 = High risk of severe sepsis and/or septic shock. [facility] Progress Noteon 01-30-2024 Progress Note Normal [facility] Progress Note Normal [facility] Progress Note Normal [facility] Progress Note [facility] Progress Note Nutrition rescreen complete. Pt assigned a level one for nutrition care. Normal [facility] US RETROPERITONEALon 024 US RETROPERITONEAL Normal [facility] US Retroperitoneumon 024 Unremarkable renal ultrasound. Report Dictated on Electronically Signed By: Kj Serna DO Electronically Signed Date/Time: 01/30/2024 10:57 AM EDT [facility] Patient Name: MIKEL WINSTON : 1945 Exam Date/Time: 01/26/2024 18:07 Procedure: US RETROPERITONEAL Ordering Provider: COHN FREELAND Reason For Exam: n18.4 RENAL ULTRASOUND: INDICATION: Renal insufficiency COMPARISON: No prior studies are available for comparison. Sonographic images of the bilateral kidneys and bladder were obtained. The right kidney measures 9.1 x 5.1 x 5.2 cm. Parenchymal echotexture is normal. No focal lesions are seen. There is no evidence of hydronephrosis or renal calculus. The left kidney measures 8.7 x 4.7 x 3.8 cm. Parenchymal echotexture is normal. There is a 1 cm inferior pole cyst. There is no evidence of hydronephrosis or renal calculus. No mass or fluid collection is seen adjacent to the kidneys. The bladder is grossly unremarkable. [facility] Kj Serna DO - 01/30/2024 Patient Name: MIKEL WINSTON : 1945 Exam Date/Time: 01/26/2024 18:07 Procedure: US RETROPERITONEAL Ordering Provider: COHN FREELAND Reason For Exam: n18.4 RENAL ULTRASOUND: INDICATION: Renal insufficiency COMPARISON: No prior studies are available for comparison. Sonographic images of the bilateral kidneys and bladder were obtained. The right kidney measures 9.1 x 5.1 x 5.2 cm. Parenchymal echotexture is normal. No focal lesions are seen. There is no evidence of hydronephrosis or renal calculus. The left kidney measures 8.7 x 4.7 x 3.8 cm. Parenchymal echotexture is normal. There is a 1 cm inferior pole cyst. There is no evidence of hydronephrosis or renal calculus. No mass or fluid collection is seen adjacent to the kidneys. The bladder is grossly unremarkable. IMPRESSION: Unremarkable renal ultrasound. Report Dictated on Electronically Signed By: Kj Serna DO Electronically Signed Date/Time: 01/30/2024 10:57 AM EDT [facility] US RetroperitoneumOrdered By : Kj Serna on 01-30-2024 [facility] Work Phone: Urinalysis complete panel (U )on 01-30-2024 Bacteria LM.HPF (Urine sed) [#/Area] Few Abnormal Negative /HPF [facility] Bilirubin Ql (U) Negative Negative mg/dL [facility] Clarity (U) Turbid Abnormal Clear [facility] Color (U) Yellow Lt. Yellow [facility] Epithelial cells.squamous LM.HPF (Urine sed) [#/Area] 3-5 [facility] Glucose Ql (U) 200 mg/dL Abnormal Normal (<70) [facility] Hemoglobin Ql (U) >1.0 Abnormal Negative mg/dL [facility] Interpretation and review of laboratory results Abnormal [facility] Ketones (U) [Mass/Vol] Negative Negat balbina mg/dL [facility] Leukocyte esterase Test strip Ql (U) 75 Abnormal Negative Yomi/uL [facility] Mucus LM.HPF (Urine sed) [#/Area] Few Negative /LPF [facility] Nitrite Ql (U) Negative Negative [facility] pH (U) 5.5 [pH] 5.0 - 8.0 pH [facility] Protein (U) [Mass/Vol] 50 mg/dL Abnormal Negative [facility] RBC LM.HPF (Urine sed) [#/Area] 51-100 Abnormal [facility] Specific gravity (U) [Rel density] 1.015 1.005 - 1.030 [facility] Urobilinogen (U) [Mass/Vol] 2 mg/dL Abnormal Normal (0-1) [facility] WBC LM.HPF (Urine sed) [#/Area] 11-25 Abnormal [facility] XR Chest Single viewon 01-29 Cardiomegaly with interstitial edema. Possible consolidation at the base of the right upper lobe. Report Dictated on Electronically Signed By: Antwan Boyd MD Electronically Signed Date/Time: 01/30/2024 8:05 PM EDT [facility]Y [facility] Patient Name: MIKEL WINSTON : 1945 Exam Date/Time: 01/30/2024 18:22 Procedure: XR CHEST 1 VIEW Ordering Provider: REGALADO JONATHAN Reason For Exam: Dyspnea CHEST - PORTABLE: CLINICAL INDICATION: Respiratory distress for follow up TECHNIQUE: Portable AP COMPARISON: One day ago FINDINGS: Heart/Mediastinum: Heart is enlarged and unchanged Lungs/Pleura: Pulmonary vascular congestion noted with reticular opacities likely reflect interstitial edema. There is some subtle consolidation in the right mid hemithorax. The costophrenic angles are obscured. [facility] Antwan Boyd MD - 01/30/2024 Patient Name: MIKEL WINSTON : 1945 Exam Date/Time: 01/30/2024 18:22 Procedure: XR CHEST 1 VIEW Ordering Provider: REGALADO JONATHAN Reason For Exam: Dyspnea CHEST - PORTABLE: CLINICAL INDICATION: Respiratory distress for follow up TECHNIQUE: Portable AP COMPARISON: One day ago FINDINGS: Heart/Mediastinum: Heart is enlarged and unchanged Lungs/Pleura: Pulmonary vascular congestion noted with reticular opacities likely reflect interstitial edema. There is some subtle consolidation in the right mid hemithorax. The costophrenic angles are obscured. IMPRESSION: Cardiomegaly with interstitial edema. Possible consolidation at the base of the right upper lobe. Report Dictated on Electronically Signed By: Antwan Boyd MD Electronically Signed Date/Time: 01/30/2024 8:05 PM EDT [facility] Radiology Study observation (narrative) [facility] alth Lines, tubes, and devices: None. Lungs and pleura: Prominence of the central pulmonary vasculature suggesting vascular congestion without overt pulmonary edema. Minimal streaky basilar opacities, likely atelectasis. No sizable pneumothorax. 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 Other: Degenerative changes of the spine and partially assessed right acromioclavicular joint. Report Dictated on Electronically Signed By: Blaise Winters MD Electronically Signed Date/Time: 01/30/2024 8:29 AM EDT [facility] Patient Name: MIKEL WINSTON : 1945 Exam Date/Time: 01/30/2024 00:45 Procedure: XR CHEST 1 VIEW Ordering Provider: MORILLO DANIEL Reason For Exam: sob EXAMINATION: CHEST RADIOGRAPH (SINGLE VIEW AP OR PA) Clinical History: sob Comparison: Radiograph 11/17/2022 RESULT: See impression [facility] Blaise Winters MD - 01/30/2024 Patient Name: MIKEL WINSTON : 1945 Exam Date/Time: 01/30/2024 00:45 Procedure: XR CHEST 1 VIEW Ordering Provider: MORILLO DANIEL Reason For Exam: sob EXAMINATION: CHEST RADIOGRAPH (SINGLE VIEW AP OR PA) Clinical History: sob Comparison: Radiograph 11/17/2022 RESULT: See impression IMPRESSION: Lines, tubes, and devices: None. Lungs and pleura: Prominence of the central pulmonary vasculature suggesting vascular congestion without overt pulmonary edema. Minimal streaky basilar opacities, likely atelectasis. No sizable pneumothorax. 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 Other: Degenerative changes of the spine and partially assessed right acromioclavicular joint. Report Dictated on Electronically Signed By: Blaise Winters MD Electronically Signed Date/Time: 01/30/2024 8:29 AM EDT [facility] Radiology Study observation (narrative) [facility] XR Chest Single viewOrdered By: Antwan Boyd on 01-30-2024 [facility] Work Phone: C-REACTIVE PROTEINon 024 CRP [Mass/Vol] 18.3 mg/L High <10.0 [facility] Comment on above: Performed By: #### L [id number], [id number] ####Claims Investigator: RUTH ANN BRAGG ([id number])[facility] ([facility])[address] [place] [address] CARECOORDon 01-29-2024 CARECOORD Normal [facility] CBC W Auto Differential pane l (Bld)Ordered By: Ovidio Carson on 01-29-2024 Erythrocyte distribution width (RBC) [Ratio] 13.7 % 11.5 - 15.0 % [facility] Hematocrit (Bld) [Volume fraction] 32.5 % Low 35.0 - 47.0 % [facility] Hemoglobin (Bld) [Mass/Vol] 10.5 g/dL Low 11.7 - 16.0 g/dL [facility] Interpretation and review of laboratory results Abnormal [facility] IPF 4 [facility] MCH (RBC) [Entitic mass] 31.7 pg 26. 0 - 34.0 pg [facility] MCHC (RBC) [Mass/Vol] 32.3 % 30.5 - 36.0 % [facility] MCV (RBC) [Entitic vol] 98.2 fL 77.0 - 99.0 fL [facility] Platelet mean volume (Bld) [Entitic vol] 11.6 fL 9.0 - 12.7 fL [facility] Platelets (Bld) [#/Vol] 89 10*3/uL Low 140 - 440 10*3/uL [facility] RBC (Bld) [#/Vol] 3.31 10*6/uL Low 3.80 - 5.2 0 10*6/uL [facility] WBC (Bld) [#/Vol] 9.0 10*3/uL 3.6 - 10.7 10*3/uL [facility] CBC WITH AUTO DIFFERENTIALon 01-29-2024 Erythrocyte distribution width (RBC) [Ratio] 13.7 % Normal 11.5-15.[address] [facility] Comment on above: Performed By: #### L [id number], [id number] ####Claims Investigator: RUTH ANN BRAGG ([id number])[facility] ([facility])[address] Hematocrit (Bld) [Volume fraction] 32.5 % Low 35.0-47.0 [facility] Comment on above: Performed By: #### L [id number], [id number] ####Claims Investigator: RUTH ANN BRAGG ([id number])[facility] ([facility])[address] [place] [address] Hemoglobin (Bld) [Mass/Vol] 10.5 g/dL Low 11.7-16.0 [facility] Comment on above: Performed By: #### L [id number], [id number] ####Claims Investigator: RUTH ANN BRAGG ([id number])[facility] ([facility])[address] [place] [address] IPF [address] [facility] Comment on above: Performed By: #### L [id number], [id number] ####Claims Investigator: RUTH ANN BRAGG ([id number])[facility] ([facility])[address] [place] [address] MCH (RBC) [Entitic mass] 31.7 pg Normal 26.0-34.[address] [facility] Comment on above: Performed By: #### L [id number], [id number] ####Claims Investigator: RUTH ANN BRAGG ([id number])[facility] ([facility])[address] MCHC 32.3 % Normal 30.5-36.0 [facility] Comment on above: Performed By: #### L [id number], [id number] ####Claims Investigator: RUTH ANN BRAGG ([id number])[facility] ([facility])[address] MCV (RBC) [Entitic vol] 98.2 fL Normal 77.0-99.0 [facility] Comment on above: Performed By: #### L [id number], [id number] ####Claims Investigator: RUTH ANN BRAGG ([id number])[facility] [place] ([facility])[address] Platelet mean volume (Bld) [Entitic vol] 11.6 fL Normal 9.0-12.7 [facility] Comment on above: Performed By: #### L [id number], [id number] ####Claims Investigator: RUTH ANN BRAGG ([id number])[facility] [place] ([facility])[address] Platelets (Bld) [#/Vol] 89 10*3/uL Low 140-440 [facility] Comment on above: Performed By: #### L [id number], [id number] ####Claims Investigator: RUTH ANN BRAGG ([id number])[facility] [place] ([facility])[address] RBC (Bld) [#/Vol] 3.31 10*6/uL Low 3.80-5.20 [facility] Comment on above: Performed By: #### L [id number], [id number] ####Claims Investigator: RUTH ANN BRAGG ([id number])[facility] [place] ([facility])[address] [place] [address] [place] WBC (Bld) [#/Vol] 9.0 10*3/uL Normal 3.6-10.7 [facility] Comment on above: Performed By: #### L [id number], [id number] ####Claims Investigator: RUTH ANN BRAGG ([id number])[facility] [place] ([facility])[address] CHLORIDE, URINE, RANDOMon CHLORIDE, UR RANDOM 61 mmol/L Normal 19-209 [facility] Comment on above: Performed By: #### L [id number], [id number], [id number], [id number] ####Claims Investigator: RUTH ANN BRAGG ([id number])[facility] [place] ([facility])[address] COMPREHENSIVE METABOLIC PANE Smith 01-29-2024 Albumin [Mass/Vol] 3.4 g/dL Low 3.5-5.0 [facility] Comment on above: Performed By: #### L [id number], [id number] ####Claims Investigator: RUTH ANN BRAGG ([id number])[facility] [place] ([facility])[address] ALP [Catalytic activity/Vol] 73 U/L Normal 38-126 [facility] Comment on above: Performed By: #### L [id number], LAB17 ####Claims Investigator: RUTH ANN BRAGG ([id number])[facility] [place] ([facility])[address] ALT [Catalytic activity/Vol] 22 U/L Normal 0-[address] [facility] Comment on above: Performed By: #### L [id number], LAB17 ####Claims Investigator: RUTH ANN BRAGG ([phone])[facility] ([facility])[address] Anion gap [Moles/Vol] 9 mmol/L Normal 3-13 [facility] Comment on above: Performed By: #### L [id number], LAB17 ####Claims Investigator: RUTH ANN BRAGG ([id number])[facility] ([facility])[address] AST [Catalytic activity/Vol] 36 U/L Normal 15-46 [facility] Comment on above: Performed By: #### L [id number], LAB17 ####Claims Investigator: RUTH ANN BRAGG ([phone])[facility] [place] ([facility])[address] [place] [address] [place] Bilirubin [Mass/Vol] 1.2 mg/dL Normal 0.2-1.3 [facility] Comment on above: Performed By: #### L [id number], LAB17 ####Claims Investigator: RUTH ANN BRAGG ([id number])[facility] [place] ([facility])[address] Calcium [Mass/Vol] 9.6 mg/dL Normal 8.4-10.4 [facility] Comment on above: Performed By: #### L [id number], LAB17 ####Claims Investigator: RUTH ANN BRAGG ([id number])[facility] [place] ([facility])[address] Chloride [Moles/Vol] 109 mmol/L High 98-107 [facility] Comment on above: Performed By: #### L AB149, LAB17 ####Claims Investigator: RUTH ANN BRAGG ([id number])[facility] [place] ([facility])[address] [place] [address] [place] CO2 [Moles/Vol] 22 mmol/L Normal 22-30 [facility] Comment on above: Performed By: #### L AB149, LAB17 ####Claims Investigator: RUTH ANN BRAGG ([phone])[facility] [place] ([facility])[address] [place] [address] [place] Creatinine [Mass/Vol] 1.68 mg/dL High 0.52-1.04 [facility] Comment on above: Performed By: #### L AB149, LAB17 ####Claims Investigator: RUTH ANN BRAGG ([id number])[facility] [place] ([facility])[address] [place] [address] [place] GLOMERULAR FILTRATION RATE ML/MIN/1.73 SQ M.PREDICTED 31.0 mL/min/1.73m*2 Low >60.0 [facility] Comment on above: Result Comment: Calc ulation based on the Chronic Kidney Disease Epidemiology Collaboration (CKD-EPI) equation refit without adjustment for race Performed By: #### L AB149, LAB17 ####Claims Investigator: RUTH ANN BRAGG ([id number])[facility] ([facility])[address] Glucose [Mass/Vol] 128 mg/dL High 70-100 [facility] Comment on above: Performed By: #### L AB149, LAB17 ####Claims Investigator: RUTH ANN BRAGG ([id number])[facility] ([facility])[address] Potassium [Moles/Vol] 3.9 mmol/L Normal 3.5-5.1 [facility] Comment on above: Performed By: #### L AB149, LAB17 ####Claims Investigator: RUTH ANN BRAGG ([phone])[facility] ([facility])[address] Protein [Mass/Vol] 6.5 g/dL Normal 6.3-8.2 [facility] Comment on above: Performed By: #### L AB149, LAB17 ####Claims Investigator: RUTH ANN BRAGG ([id number])[facility] ([facility])[address] Sodium [Moles/Vol] 140 mmol/L Normal 135-145 [facility] Comment on above: Performed By: #### L AB149, LAB17 ####Claims Investigator: RUTH ANN BRAGG ([id number])[facility] ([facility])[address] [place] [address] [place] Urea nitrogen [Mass/Vol] 30 mg/dL High 7-17 [facility] Comment on above: Performed By: #### L AB149, LAB17 ####Claims Investigator: RUTH ANN BRAGG ([id number])[facility] ([facility])[address] Comprehensive metabolic 1998 panelon 01-29-2024 Albumin [Mass/Vol] 3.4 g/dL Low 3.5 - 5.0 g/dL [facility] ALP [Catalytic activity/Vol] 73 U/L 38 - 126 U/L [facility] ALT [Catalytic activity/Vol] 22 U/L 0 - 34 U/L [facility] Anion gap [Moles/Vol] 9 mmol/L 3 - 13 mmol/L [facility] AST [Catalytic activity/Vol] 36 U/L 15 - 46 U/L [facility] Bilirubin [Mass/Vol] 1.2 mg/dL 0.2 - 1 .3 mg/dL [facility] Calcium [Mass/Vol] 9.6 mg/dL 8.4 - 10. 4 mg/dL [facility] Chloride [Moles/Vol] 109 mmol/L High 98 - 10 7 mmol/L [facility] CO2 [Moles/Vol] 22 mmol/L 22 - 30 mmol/L [facility] Creatinine [Mass/Vol] 1.68 mg/dL High 0.52 - 1.04 mg/dL [facility] GFR/1.73 sq M.predicted MDRD (S/P/Bld) [Vol rate/Area] 31.0 mL/min/{1.73_m2} Low - PINF [facility] Comment on above: Calculation based on the Chronic Kidney Disease Epidemiology Collaboration (CKD-EPI) equation refit without adjustment for race Glucose [Mass/Vol] 128 mg/dL High 70 - 100 mg/dL [facility] Interpretation and review of laboratory results Abnormal 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 ST elevation secondary to IVCD Electronically Signed On 01-29-2024 05:57:24 EDT by Giancarlo Queen Normal [facility] Laboratory - Chemistry and C hemistry - challengeon 01-29-2024 Glucose [Mass/Vol] 168 mg/dL High 70 - 100 mg/dL [facility] Glucose [Mass/Vol] 148 mg/dL High 70 - 100 mg/dL [facility] Sodium (24H U) [Mass/Vol] 77 mmol/L 30 - 90 mmol/L [facility] Chloride (U) [Moles/Vol] 61 mmol/L 19 - 209 mmol/L [facility] Glucose [Mass/Vol] 183 mg/dL High 70 - 100 mg/dL [facility] Glucose [Mass/Vol] 125 mg/dL High 70 - 100 mg/dL [facility] Laboratory - Drug toxicology on 01-29-2024 Vancomycin [Mass/Vol] 16.4 ug/mL 15.0 - 20.0 ug/mL [facility] Laboratory - Hematology and Cell countson 01-29-2024 Basophils (Bld) [#/Vol] 0.1 10*3/uL 0.0 - 0.2 10*3/uL [facility] Basophils/100 WBC (Bld) 1 % 0 - 2 % [facility] Eosinophils (Bld) [#/Vol] 0.1 10*3/uL 0. 0 - 0.5 10*3/uL [facility] Eosinophils/100 WBC (Bld) 1 % 0 - 6 % [facility] Lymphocytes (Bld) [#/Vol] 0.7 10*3/uL Low 1. 0 - 4.3 10*3/uL [facility] Lymphocytes/100 WBC (Bld) 8 % Low 15 - 45 % [facility] Monocytes (Bld) [#/Vol] 0.4 10*3/uL 0.0 - 0.9 10*3/uL [facility] Monocytes/100 WBC (Bld) 4 % Low 5 - 13 % [facility] Neutrophils (Bld) [#/Vol] 7.7 10*3/uL High 1. 8 - 7.5 10*3/uL [facility] RBC morphology finding Nom (Bld) Normal [facility] Segmented neutrophils/100 WBC (Bld) 86 % High 38 - 82 % [facility] Laboratory - Urinalysison Protein (U) [Mass/Vol] 32 mg/dL High 0 - 1 2 mg/dL [facility] MANUAL DIFFERENTIAL (CELLAVI KRISTIAN)on 01-29-2024 BAND NEUTROPHILS TOTAL PER COUNTED LEUKOCYTES BY MANUAL COUNT Normal [facility] Comment on above: Performed By: #### L [id number], [id number] ####Claims Investigator: RUTH ANN BRAGG ([phone])[facility] [place] ([facility])[address] [place] [address] [place] BASOPHILS (10*3/UL) IN BLOOD-CELLAVISION 0.1 10*3/uL Normal 0.0-0.2 [facility] Comment on above: Performed By: #### L [id number], [id number] ####Claims Investigator: RUTH ANN BRAGG ([id number])[facility] [place] ([facility])[address] [place] [address] [place] BASOPHILS TOTAL PER COUNTED LEUKOCYTES BY MANUAL COUNT 1 [facility] Comment on above: Performed By: #### L [id number], [id number] ####Claims Investigator: RUTH ANN BRAGG ([id number])[facility] [place] ([facility])[address] [place] [address] [place] BASOPHILS/100 LEUKOCYTES IN BLOOD-CELLAVISION 1 % Normal 0-2 [facility] Comment on above: Performed By: #### L [id number], [id number] ####Claims Investigator: RUTH ANN BRAGG ([id number])[facility] [place] ([facility])[address] [place] [address] [place] BLASTS TOTAL PER COUNTED LEUKOCYTES BY MANUAL COUNT [facility] Comment on above: Performed By: #### L [id number], [id number] ####Claims Investigator: RUTH ANN BRAGG ([id number])[facility] [place] ([facility])[address] [place] [address] [place] EOSINOPHILS (10*3/UL) IN BLOOD-CELLAVISION 0.1 10*3/uL Normal 0.0-0.5 [facility] Comment on above: Performed By: #### L [id number], [id number] ####Claims Investigator: RUTH ANN BRAGG ([id number])[facility] [place] ([facility])[address] [place] [address] [place] EOSINOPHILS TOTAL PER COUNTED LEUKOCYTES BY MANUAL COUNT 1 Normal 0-[address] [facility] Comment on above: Performed By: #### L [id number], [id number] ####Claims Investigator: RUTH ANN BRAGG ([id number])[facility] [place] ([facility])[address] [place] [address] [place] EOSINOPHILS/100 LEUKOCYTES IN BLOOD-CELLAVISION 1 % Normal 0-[address] [facility] Comment on above: Performed By: #### L [id number], [id number] ####Claims Investigator: RUTH ANN BRAGG ([id number])[facility] [place] ([facility])[address] [place] [address] [place] LYMPHOCYTES (10*3/UL) IN BLOOD-CELLAVISION 0.7 10*3/uL Low 1.0-4.[address] [facility] Comment on above: Performed By: #### L [id number], [id number] ####Claims Investigator: RUTH ANN BRAGG ([id number])[facility] [place] ([facility])[address] [place] [address] [place] LYMPHOCYTES TOTAL PER COUNTED LEUKOCYTES BY MANUAL COUNT 8 Normal [facility] Comment on above: Performed By: #### L [id number], [id number] ####Claims Investigator: RUTH ANN BRAGG ([phone])[facility] [place] ([facility])[address] [place] [address] [place] LYMPHOCYTES/100 LEUKOCYTES IN BLOOD-CELLAVISION 8 % Low 15-[address] [facility] Comment on above: Performed By: #### L [id number], [id number] ####Claims Investigator: RUTH ANN BRAGG ([phone])[facility] [place] ([facility])[address] [place] [address] [place] METAMYELOCYTES TOTAL PER COUNTED LEUKOCYTES BY MANUAL COUNT Normal [facility] Comment on above: Performed By: #### L [id number], [id number] ####Claims Investigator: RUTH ANN BRAGG ([phone])[facility] [place] ([facility])[address] [place] [address] [place] MONOCYTES (10*3/UL) IN BLOOD-CELLAVISION 0.4 10*3/uL Normal 0.0-0.9 [facility] Comment on above: Performed By: #### L [id number], [id number] ####Claims Investigator: RUTH ANN PRITCHARDCER ([id number])[facility] ([facility])[address] [place] [address] [place] MONOCYTES TOTAL PER COUNTED LEUKOCYTES BY MANUAL COUNT 4 Normal [facility] Comment on above: Performed By: #### L [id number], [id number] ####Claims Investigator: RUTH ANN PRITCHARDCER ([id number])[facility] ([facility])[address] [place] [address] [place] MONOCYTES/100 LEUKOCYTES IN BLOOD-TOMMIE 4 % Low 5-13 [facility] Comment on above: Performed By: #### L [id number], [id number] ####Claims Investigator: RUTH ANN BRAGG ([id number])[facility] ([facility])[address] [place] [address] [place] MYELOCYTES COUNTED BY MANUAL COUNT [facility] Comment on above: Performed By: #### L [id number], [id number] ####Claims Investigator: RUTH ANN BRAGG ([id number])[facility] ([facility])[address] [place] [address] [place] NEUTROPHILS TOTAL PER COUNTED LEUKOCYTES BY MANUAL COUNT 86 [facility] Comment on above: Performed By: #### L [id number], [id number] ####Claims Investigator: RUTH ANN BRAGG ([id number])[facility] ([facility])[address] [place] [address] [place] PROMYELOCYTES TOTAL PER COUNTED LEUKOCYTES BY MANUAL COUNT [facility] Comment on above: Performed By: #### L [id number], [id number] ####Claims Investigator: RUTH ANN BRAGG ([id number])[facility] ([facility])[address] [place] [address] [place] RBC MORPHOLOGY IN BLOOD Normal Normal [facility] Comment on above: Performed By: #### L [id number], [id number] ####Claims Investigator: RUTH ANN BRAGG ([phone])[facility] ([facility])[address] SEGMENTED NEUTROPHILS (10*3/UL) IN BLOOD-CELLAVISION 7.7 10*3/uL High 1.8-7.5 [facility] Comment on above: Performed By: #### L [id number], [id number] ####Claims Investigator: RUTH ANN BRAGG ([id number])[facility] ([facility])[address] SEGMENTED NEUTROPHILS/100 LEUKOCYTES-CE 86 % High 38-82 [facility] Comment on above: Performed By: #### L [id number], [id number] ####Claims Investigator: RUTH ANN BRAGG ([id number])[facility] ([facility])[address] UNCLASSIFIED CELLS TOTAL PER COUNTED LEUKOCYTES BY MANUAL COUNT [facility] Comment on above: Performed By: #### L [id number], [id number] ####Claims Investigator: RUTH ANN BRAGG ([id number])[facility] ([facility])[address] VARIANT LYMPHOCYTES TOTAL PER COUNTED LEUKOCYTES BY MANUAL COUNT [facility] Comment on above: Performed By: #### L [id number], [id number] ####Claims Investigator: RUTH ANN BRAGG ([phone])[facility] ([facility])[address] MICROALBUMIN / CREATININE UR INE RATIOon 01-29-2024 CREATININE, URINE 46.7 mg/dL Normal [facility] Comment on above: Performed By: #### L [id number], [id number], [id number], [id number] ####Claims Investigator: RUTH ANN BRAGG ([id number])[facility] ([facility] [place] [address] [place] MICROALBUMIN, URINE 74.3 mg/L High 0.0-29.9 [facility] Comment on above: Result Comment: OLIVIA Mazariegos COMMENTS:Microalbumin concentrations <30 are considered normal, 30-300 are considered microalbuminuria (or risk of diabetic nephropathy), and >300 are considered clinical albuminuria (clinical nephropathy).Diabetes Care,27, Supplement 1, 2003 Performed By: #### L AB689, [id number], BYP566, [id number] ####Claims Investigator: RUTH ANN BRAGG ([phone])[facility] (SBHLAB)[address] [place] [address] MICROALBUMIN/CREATININE RATIO 159.1 mg/g High 0.0-29.9 [facility] Comment on above: Performed By: #### L AB689, [id number], [id number], [id number] ####Claims Investigator: RUTH ANN BRAGG ([id number])[facility] (SBHLAB)[address] [place] [address] Microalbumin/Creatinine rati o panel (U)on 01-29-2024 Albumin DL <= 20 mg/L (U) [Mass/Vol] 74.3 mg/L High 0.0 - 29.9 mg/L [facility] Albumin/Creatinine DL <= 20 mg/L (U) [Mass ratio] 159.1 mg/g High 0.0 - 29.9 mg/g [facility] CREATININE, URINE 46.7 mg/dL [facility] Interpretation and review of laboratory results Abnormal [facility] Microalbumin concentrations <30 are considered normal, 30-300 are considered microalbuminuria (or risk of diabetic nephropathy), and >300 are considered clinical albuminuria (clinical nephropathy). Diabetes Care,27, Supplement 1, W92003 [facility] No Panel Informationon 01-28 Interpretation and review of laboratory results Abnormal [facility] Performed by: Marya Zheng, [address] [place] [address] CLIA ID: [id number] [facility] Interpretation and review of laboratory results Abnormal [facility] Performed by: Marya Zheng, [address] [place] [address] CLIA ID: [id number] [facility] Interpretation and review of laboratory results Normal [facility] Interpretation and review of laboratory results Abnormal [facility] Interpretation and review of laboratory results Abnormal [facility] Performed by: [facility], [address] [place] [address] CLIA ID: [id number] [facility] Interpretation and review of laboratory results Abnormal [facility] Performed by: [facility], [address] [place] [address] CLIA ID: [id number] [facility] Atypical Lymphocytes Manual [facility] Bands Manual [facility] Basophils Manual 1 [facility] Blasts Manual [facility] 1 0 - 1 [facility] Interpretation and review of laboratory results Abnormal 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 ST elevation secondary to IVCD Electronically Signed On 01-29-2024 05:57:24 EDT by Giancarlo Lau, DO - 01/29/2024 IMPRESSION: Sinus rhythm Borderline prolonged [place] interval 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 ST elevation secondary to IVCD Electronically Signed On 01-29-2024 05:57:24 EDT by Giancarlo Queen [facility] Radiology Study observation (narrative) [facility] Rad[facility] Study observation (narrative) [facility] Study observation (narrative) [facility] Study observation (narrative) [facility] No Panel InformationOrdered By: Giancarlo Queen on 01-29-2024 P [place] 66 degrees [facility] Work Phone: KS Interval 207 ms [facility] Work Phone: QRS [place] -65 degrees [facility] Work Phone: QRSD Interval 172 ms [facility] Work Phone: QT Interval 437 ms [employer] Work Phone: QTC Interval 540 ms [employer] Work Phone: T Wave [place] 98 degrees [employer] Work Phone: [employer] Work Phone: PROCALCITONIN TESTon 024 PROCALCITONIN 0.12 ng/mL High 0.00-0.09 [facility] Comment on above: Result Comment: ORDE R COMMENTS:PCT <0.50 = Low risk of severe sepsis and/or septic shock.PCT >2.00 = High risk of severe sepsis and/or septic shock. Performed By: #### L [id number] ####Claims Investigator: CHERYL STOREY ([id number])[facility] (SACLAB)[address] [place] [address] PROTEIN, URINE, RANDOMon Protein (U) [Mass/Vol] 32 mg/dL High 0-12 [facility] Comment on above: Performed By: #### L AB689, [id number], QOG962, FBB626 ####Claims Investigator: RUTH ANN BRAGG ([id number])[facility] (SBAB)[address] [place] [address] Progress Noteon 01-29-2024 Progress Note Normal [facility] Progress Note PHYSICAL THERAPY [facility] Name/MRN: Mikel Winston ([id number]) Date: 01/29/2024 Chart reviewed. Pt with pending Duplex. Will await result and attempt as appropiate Siddharth Irving PT Normal [facility] System [facility]S Progress Note Normal [facility] Progress Note Normal [facility] Progress Note Normal [facility] SODIUM, URINE, RANDOMon 01-07 Sodium (U) [Moles/Vol] 77 mmol/L Normal 30-90 [facility] Comment on above: Performed By: #### L AB689, PBL653, MZK101, QNA682 ####Claims Investigator: RUTH ANN BRAGG ([id number])[facility] (SBHLAB)[address] VANCOMYCIN, RANDOMon 024 VANCOMYCIN 16.4 ug/mL Normal 15.0-20.0 [facility] Comment on above: Order Comment: Ok to draw with morning labs. Please draw at least 2 hours after Vancomycin infusion has stopped. Performed By: #### L AB40 ####Claims Investigator: RUTH ANN BRAGG ([id number])[facility] (SBHLAB)[address] Vital signsOrdered By: Giovanny Queen on 01-29-2024 Heart rate 91 /min bpm [facility] Work Phone: BASIC METABOLIC PANELon 01-07 Anion gap [Moles/Vol] 13 mmol/L Normal 3-13 [facility] Comment on above: Performed By: #### L AB137, [id number], ALK809, LAB15, VAB736, UQU549 ####Claims Investigator: RUTH ANN BRAGG ([id number])[facility] ([facility])[address] Calcium [Mass/Vol] 10.2 mg/dL Normal 8.4-10.4 [facility] Comment on above: Performed By: #### L AB137, [id number], ICI000, LAB15, NFF248, KTU126 ####Claims Investigator: RUTH ANN BRAGG ([id number])[facility] [place] (SBHLAB)[address] Chloride [Moles/Vol] 107 mmol/L Normal 98-107 [facility] Comment on above: Performed By: #### L AB137, [id number], UBV017, LAB15, VJG157, XQW179 ####Claims Investigator: RUTH ANN BRAGG ([id number])[facility] (SBHLAB)[address] CO2 [Moles/Vol] 21 mmol/L Low 22-30 [facility] Comment on above: Performed By: #### L AB137, [id number], DQN646, LAB15, COF521, IJL800 ####Claims Investigator: RUTH ANN BRAGG ([id number])[facility] [place] (SB[facility]AB)[address] Creatinine [Mass/Vol] 1.70 mg/dL High 0.52-1.04 [facility] Comment on above: Performed By: #### L AB137, [id number], DXO038, LAB15, UUC478, QNH836 ####Claims Investigator: RUTH ANN BRAGG ([id number])[facility] [place] (SBHLAB)[address] GLOMERULAR FILTRATION RATE ML/MIN/1.73 SQ M.PREDICTED 30.6 mL/min/1.73m*2 Low >60.0 [facility] Comment on above: Result Comment: Calc ulation based on the Chronic Kidney Disease Epidemiology Collaboration (CKD-EPI) equation refit without adjustment for race Performed By: #### L AB137, [id number], ENN332, LAB15, JGT378, JUT393 ####Claims Investigator: RUTH ANN BRAGG ([id number])[facility] [place] (SB[facility]AB)[address] Glucose [Mass/Vol] 122 mg/dL High 70-100 [facility] Comment on above: Performed By: #### L AB137, [id number], FRI757, LAB15, VSF585, NOY232 ####Claims Investigator: RUTH ANN BRAGG ([id number])[facility] [place] (SB[facility])[address] [place] [address] [place] Potassium [Moles/Vol] 4.3 mmol/L Normal 3.5-5.1 [facility] Comment on above: Performed By: #### L AB137, [id number], XNK138, LAB15, CDD748, JUB564 ####Claims Investigator: RUTH ANN BRAGG ([id number])[facility] (SBHLAB)[address] [place] [address] [place] Sodium [Moles/Vol] 141 mmol/L Normal 135-[address] [facility] Comment on above: Performed By: #### L AB137, [id number], GLT919, LAB15, EEU084, YYY228 ####Claims Investigator: RUTH ANN BRAGG ([id number])[facility] (SBHLAB)[address] Urea nitrogen [Mass/Vol] 33 mg/dL High 7-[address] [facility] Comment on above: Performed By: #### L AB137, [id number], DVT551, LAB15, TSK881, JKY875 ####Claims Investigator: RUTH ANN BRAGG ([id number])[facility] (SBHLAB)[address] Basic metabolic 1998 panelon 01-28-2024 Anion gap [Moles/Vol] 13 mmol/L 3 - 13 mmol/L [facility] Calcium [Mass/Vol] 10.2 mg/dL 8.4 - 10. 4 mg/dL [facility] Chloride [Moles/Vol] 107 mmol/L 98 - 10 7 mmol/L [facility] CO2 [Moles/Vol] 21 mmol/L Low 22 - 30 mmol/L [facility] Creatinine [Mass/Vol] 1.70 mg/dL High 0.52 - 1.04 mg/dL [facility] GFR/1.73 sq M.predicted MDRD (S/P/Bld) [Vol rate/Area] 30.6 mL/min/{1.73_m2} Low - PINF [facility] Comment on above: Calculation based on the Chronic Kidney Disease Epidemiology Collaboration (CKD-EPI) equation refit without adjustment for race Glucose [Mass/Vol] 122 mg/dL High 70 - 100 mg/dL [facility] Interpretation and review of laboratory results Abnormal [facility] Potassium [Moles/Vol] 4.3 mmol/L 3.5 - 5.1 mmol/L [facility] Sodium [Moles/Vol] 141 mmol/L 135 - 145 mmol/L [facility] Urea nitrogen [Mass/Vol] 33 mg/dL High 7 - 17 mg/dL [facility] C-REACTIVE PROTEINon 024 CRP [Mass/Vol] mg/L Normal <10.0 [facility] Comment on above: Performed By: #### L AB137, [id number], BNK375, LAB15, ERD232, VGM787 ####Claims Investigator: RUTH ANN BRAGG ([id number])[facility] (SBHLAB)[address] [place] [address] CBC W Auto Differential pane l (Bld)on 01-28-2024 Basophils (Bld) [#/Vol] 0.0 10*3/uL 0.0 - 0.2 10*3/uL [facility] Basophils/100 WBC (Bld) 0.4 % 0.0 - 2.0 % [facility] Eosinophils (Bld) [#/Vol] 0.1 10*3/uL 0. 0 - 0.5 10*3/uL [facility] Eosinophils/100 WBC (Bld) 0.7 % 0.0 - 6.0 % [facility] Erythrocyte distribution width (RBC) [Ratio] 13.6 % 11.5 - 15.0 % [facility] Hematocrit (Bld) [Volume fraction] 35.1 % 35.0 - 47.0 % [facility] Hemoglobin (Bld) [Mass/Vol] 11.8 g/dL 11.7 - 16.0 g/dL [facility] Immature granulocytes (Bld) [#/Vol] 0.1 10*3/uL High NINF - 0.1 10*3/uL [facility] Immature granulocytes/100 WBC (Bld) 0.6 % 0.0 - 2.0 % [facility] Interpretation and review of laboratory results Abnormal [facility] Lymphocytes (Bld) [#/Vol] 0.7 10*3/uL Low 1. 0 - 4.3 10*3/uL [facility] Lymphocytes/100 WBC (Bld) 6.3 % Low 15 .0 - 45.0 % [facility] MCH (RBC) [Entitic mass] 32.5 pg 26. 0 - 34.0 pg [facility] MCHC (RBC) [Mass/Vol] 33.6 % 30.5 - 36.0 % [facility] MCV (RBC) [Entitic vol] 96.7 fL 77.0 - 99.0 fL [facility] Monocytes (Bld) [#/Vol] 1.3 10*3/uL High 0.0 - 0.9 10*3/uL [facility] Monocytes/100 WBC (Bld) 12.1 % 5.0 - 13.0 % [facility] Neutrophils (Bld) [#/Vol] 8.6 10*3/uL High 1. 8 - 7.5 10*3/uL [facility] Neutrophils/100 WBC (Bld) 79.9 % 38 .0 - 82.0 % [facility] Nucleated RBC/100 WBC (Bld) [Ratio] 0.0 % [facility] Platelet mean volume (Bld) [Entitic vol] 12.2 fL 9.0 - 12.7 fL [facility] Platelets (Bld) [#/Vol] 105 10*3/uL Low 140 - 440 10*3/uL [facility] RBC (Bld) [#/Vol] 3.63 10*6/uL Low 3.80 - 5.2 0 10*6/uL [facility] WBC (Bld) [#/Vol] 10.8 10*3/uL High 3.6 - 10.7 10*3/uL [facility] CBC WITH AUTO DIFFERENTIALon 01-28-2024 Basophils (Bld) [#/Vol] 0.0 10*3/uL Normal 0.0-0.[address] [facility] Comment on above: Performed By: #### L [id number] ####Claims Investigator: RUTH ANN BRAGG ([id number])[facility] ([facility])[address] [place] [address] Basophils/100 WBC (Bld) 0.4 % Normal 0.0-2.0 S [facility] Comment on above: Performed By: #### L [id number] ####Claims Investigator: RUTH ANN BRAGG ([id number])[facility] ([facility])[address] Eosinophils (Bld) [#/Vol] 0.1 10*3/uL Normal 0.0-0.[address] [facility] Comment on above: Performed By: #### L [id number] ####Claims Investigator: RUTH ANN BRAGG ([id number])[facility] (SB[facility]AB)[address] Eosinophils/100 WBC (Bld) 0.7 % Normal 0.0-6.0 [facility] Comment on above: Performed By: #### L [id number] ####Claims Investigator: RUTH ANN BRAGG ([phone])[facility] (SBHLAB)[address] Erythrocyte distribution width (RBC) [Ratio] 13.6 % Normal 11.5-15.0 [facility] Comment on above: Performed By: #### L [id number] ####Claims Investigator: RUTH ANN BRAGG ([id number])[facility] (SBHLAB)[address] Hematocrit (Bld) [Volume fraction] 35.1 % Normal 35.0-47.0 [facility] Comment on above: Performed By: #### L [id number] ####Claims Investigator: RUTH ANN BRAGG ([phone])[facility] (SBHLAB)[address] Hemoglobin (Bld) [Mass/Vol] 11.8 g/dL Normal 11.7-16.0 [facility] Comment on above: Performed By: #### L [id number] ####Claims Investigator: RUTH ANN BRAGG ([phone])[facility] (SBHLAB)[address] IMMATURE GRANS % 0.6 % Normal 0.0-2.0 [facility] Comment on above: Performed By: #### L [id number] ####Claims Investigator: RUTH ANN BRAGG ([id number])[facility] (SBHLAB)[address] IMMATURE GRANS ABSOLUTE 0.1 10*3/uL High <0.[address] [facility] Comment on above: Performed By: #### L [id number] ####Claims Investigator: RUTH ANN BRAGG ([phone])[facility] (SBHLAB)[address] Lymphocytes (Bld) [#/Vol] 0.7 10*3/uL Low 1.0-4.[address] [facility] Comment on above: Performed By: #### L [id number] ####Claims Investigator: RUTH ANN HERRONSHELTON ([id number])[facility] (SBHLAB)[address] Lymphocytes/100 WBC (Bld) 6.3 % Low 15.0-45.[address] [facility] Comment on above: Performed By: #### L [id number] ####Claims Investigator: RUTH ANN BRAGG ([id number])[facility] [place] ([facility])[address] MCH (RBC) [Entitic mass] 32.5 pg Normal 26.0-34.[address] [facility] Comment on above: Performed By: #### L [id number] ####Claims Investigator: RUTH ANN BRAGG ([id number])[facility] (SB[facility])[address] [place] [address] MCHC 33.6 % Normal 30.5-36.[address] [facility] Comment on above: Performed By: #### L [id number] ####Claims Investigator: RUTH ANN BRAGG ([id number])[facility] (SBHLAB)[address] [place] [address] MCV (RBC) [Entitic vol] 96.7 fL Normal 77.0-99.0 S [facility] Comment on above: Performed By: #### L [id number] ####Claims Investigator: RUTH ANN BRAGG ([id number])[facility] ([facility])[address] [place] [address] [place] Monocytes (Bld) [#/Vol] 1.3 10*3/uL High 0.0-0.[address] [facility] Comment on above: Performed By: #### L [id number] ####Claims Investigator: RUTH ANN BRAGG ([id number])[facility] ([facility])[address] Monocytes/100 WBC (Bld) 12.1 % Normal 5.0-13.0 [facility] Comment on above: Performed By: #### L [id number] ####Claims Investigator: RUTH ANN BRAGG ([id number])[facility] ([facility])[address] NEUTROPHILS ABSOLUTE 8.6 10*3/uL High 1.8-7.5 [facility] Comment on above: Performed By: #### L [id number] ####Claims Investigator: RUTH ANN BRAGG ([id number])[facility] ([facility])[address] Neutrophils/100 WBC (Bld) 79.9 % Normal 38.0-82.0 [facility] Comment on above: Performed By: #### L [id number] ####Claims Investigator: RUTH ANN BRAGG ([id number])[facility] ([facility])[address] NRBC 0.0 /100 WBCs Normal 0.0-2.0 [facility] Comment on above: Performed By: #### L [id number] ####Claims Investigator: RUTH ANN BRAGG ([id number])[facility] ([facility])[address] Platelet mean volume (Bld) [Entitic vol] 12.2 fL Normal 9.0-12.[address] [facility] Comment on above: Performed By: #### L [id number] ####Claims Investigator: RUTH ANN BRAGG ([id number])[facility] ([facility])[address] [place] [address] [place] Platelets (Bld) [#/Vol] 105 10*3/uL Low 140-440 [facility] Comment on above: Performed By: #### L [id number] ####Claims Investigator: RUTH ANN BRAGG ([id number])[facility] ([facility])[address] RBC (Bld) [#/Vol] 3.63 10*6/uL Low 3.80-5.[address] [facility] Comment on above: Performed By: #### L [id number] ####Claims Investigator: RUTH ANN BRAGG ([id number])[facility] (SB[facility])[address] WBC (Bld) [#/Vol] 10.8 10*3/uL High 3.6-10.[address] [facility] Comment on above: Performed By: #### L [id number] ####Claims Investigator: RUTH ANN BRAGG ([id number])[facility] (SB[facility])[address] COMPLETE URINALYSISon 2023 BACTERIA (#/HPF) IN URINE Many Abnormal Negative [facility] Comment on above: Performed By: #### L [id number] ####Claims Investigator: RUTH ANN BRAGG ([phone])[facility] (SB[facility])[address] BILIRUBIN, TOTAL PRESENCE IN URINE Negative Normal Negative [facility] Comment on above: Performed By: #### L [id number] ####Claims Investigator: RUTH ANN BRAGG ([id number])[facility] (SB[facility])[address] Clarity (U) Turbid Abnormal Clear [facility] Comment on above: Performed By: #### L [id number] ####Claims Investigator: RUTH ANN BRAGG ([id number])[facility] ([facility])[address] Color (U) Yellow Normal Lt. Yellow [facility] Comment on above: Performed By: #### L [id number] ####Claims Investigator: RUTH ANN BRAGG ([id number])[facility] ([facility])[address] GLUCOSE (MG/DL) IN URINE Normal Normal Nor mal (<70) [facility] Comment on above: Performed By: #### L [id number] ####Claims Investigator: RUTH ANN HERRONSHELTON ([id number])[facility] ([facility])[address] HEMOGLOBIN PRESENCE IN URINE 0.06 mg/dL Abnormal Negative [facility] Comment on above: Performed By: #### L [id number] ####Claims Investigator: RUTH ANN HERRONSHELTON ([id number])[facility] ([facility] Ketones Ql (U) Negative Normal Negative [facility] Comment on above: Performed By: #### L [id number] ####Claims Investigator: RUTH ANN HERRONSHELTON ([id number])[facility] ([facility])[address] LEUKOCYTE ESTERASE PRESENCE IN URINE BY TEST STRIP 250 Yomi/uL Abnormal Negative [facility] Comment on above: Performed By: #### L [id number] ####Claims Investigator: RUTH ANN HERRONSHELTON ([id number])[facility] (SBHLAB)155 [place] [address] [place] MUCUS (#/LPF) IN URINE SEDIMENT Few Normal Negative [facility] Comment on above: Performed By: #### L [id number] ####Claims Investigator: RUTH ANN HERRONSHELTON ([id number])[facility] ([facility])[address] NITRITE PRESENCE IN URINE Negative Normal Negative [facility] Comment on above: Performed By: #### L [id number] ####Claims Investigator: RUTH ANN HERRONSHELTON ([id number])[facility] ([facility])[address] pH (U) 6.0 [pH] Normal 5.0-8.[address] [facility] Comment on above: Performed By: #### L [id number] ####Claims Investigator: RUTH ANN BRAGG ([id number])[facility] ([facility])[address] Protein (U) [Mass/Vol] 50 mg/dL Abnormal Negative [facility] Comment on above: Performed By: #### L [id number] ####Claims Investigator: RUTH ANN BRAGG ([id number])[facility] ([facility])[address] RBC (#/HPF) IN URINE SEDIMENT 3-5 Abnormal 0-[address] [facility] Comment on above: Performed By: #### L [id number] ####Claims Investigator: RUTH ANN BRAGG ([id number])[facility] ([facility])[address] Specific gravity (U) [Rel density] 1.015 Normal 1.005-1.030 [facility] Comment on above: Performed By: #### L [id number] ####Claims Investigator: RUTH ANN BRAGG ([id number])[facility] ([facility])[address] [place] [address] [place] SQUAMOUS EPITHELIAL CELLS (#/HPF) IN URINE SEDIMENT 3-5 Normal 3-[address] [facility] Comment on above: Performed By: #### L [id number] ####Claims Investigator: RUTH ANN BRAGG ([id number])[facility] ([facility])[address] UROBILINOGEN (MG/DL) IN URINE 2 mg/dL Abnormal Normal (0-1) [facility] Comment on above: Performed By: #### L [id number] ####Claims Investigator: RUTH ANN BRAGG ([id number])[facility] ([facility])155 [place] [address] [place] WBC (LEUKOCYTE) (#/HPF) IN URINE SEDIMENT 26-50 Abnormal 0-[address] [facility] Comment on above: Performed By: #### L [id number] ####Claims Investigator: RUTH ANN BRAGG ([id number])[facility] ([facility])[address] [place] [address] [place] WBC (LEUKOCYTE) CLUMPS (#/HPF) IN URINE SEDIMENT Rare Abnormal Negative [facility] Comment on above: Performed By: #### L [id number] ####Claims Investigator: RUTH ANN BRAGG ([id number])[facility] (SBHLAB)[address] [place] [address] CRP [Mass/Vol]on 01-28-2024 Interpretation and review of laboratory results Normal [facility] CT HEAD WO IV CONTRASTon CT HEAD WO IV CONTRAST Normal [facility] CT Head WO contraston [address] evidence of an acute intracranial abnormality. Chronic parenchymal changes as described. Report Dictated on Electronically Signed By: Blaise Winters MD Electronically Signed Date/Time: 01/28/2024 6:29 PM EDT [facility] Patient Name: MIKEL WINSTON : 1945 Exam Date/Time: 01/28/2024 18:00 Procedure: CT HEAD WO IV CONTRAST Ordering Provider: SANCHEZ TIMOTHY Reason For Exam: aphasia, LKW > 24 hours EXAMINATION: CT HEAD WO IV CONTRAST HISTORY: aphasia, LKW > 24 hours TECHNIQUE: CT head without contrast. Dose reduction was employed with automated exposure control. COMPARISON: Head CT 12/13/2021 RESULT: Acute change: No evidence of an acute intracranial process. Hemorrhage: No evidence of acute intracranial hemorrhage. Mass Lesion / Mass Effect: No evidence of an intracranial mass, extra-axial fluid collection, or significant localized mass effect. Chronic change: Scattered patchy foci of low attenuation are present within supratentorial white matter which is a nonspecific finding but likely represents mild microvascular ischemia. Atherosclerotic calcifications of the carotid siphons and vertebral arteries. Parenchyma: There is no significant volume loss. Ventricles: Normal caliber and morphology. Other: Bilateral lens replacements. The calvarium, skull base, imaged paranasal sinuses, mastoids, orbits and extracranial soft tissues are unremarkable. [facility] Blaise Winters MD - 01/28/2024 Patient Name: MIKEL WINSTON : 1945 Exam Date/Time: 01/28/2024 18:00 Procedure: CT HEAD WO IV CONTRAST Ordering Provider: SANCHEZ TIMOTHY Reason For Exam: aphasia, LKW > 24 hours EXAMINATION: CT HEAD WO IV CONTRAST HISTORY: aphasia, LKW > 24 hours TECHNIQUE: CT head without contrast. Dose reduction was employed with automated exposure control. COMPARISON: Head CT 12/13/2021 RESULT: Acute change: No evidence of an acute intracranial process. Hemorrhage: No evidence of acute intracranial hemorrhage. Mass Lesion / Mass Effect: No evidence of an intracranial mass, extra-axial fluid collection, or significant localized mass effect. Chronic change: Scattered patchy foci of low attenuation are present within supratentorial white matter which is a nonspecific finding but likely represents mild microvascular ischemia. Atherosclerotic calcifications of the carotid siphons and vertebral arteries. Parenchyma: There is no significant volume loss. Ventricles: Normal caliber and morphology. Other: Bilateral lens replacements. The calvarium, skull base, imaged paranasal sinuses, mastoids, orbits and extracranial soft tissues are unremarkable. IMPRESSION: No CT evidence of an acute intracranial abnormality. Chronic parenchymal changes as described. Report Dictated on Electronically Signed By: Blaise Winters MD Electronically Signed Date/Time: 01/28/2024 6:29 PM EDT [facility] Radiology Study observation (narrative) [facility] CT Head WO contrastOrdered B y: Blaise Winters on 01-28-2024 [facility] Work Phone: Consulton 01-28-2024 Consult Normal [facility] ED Nursing Noteon 01-28-2024 ED Nursing Note Guided family back Aurora Castellanos EMT 01/28/24 1648 Normal [facility] ED Nursing Note Introduced myself as pt liaison explained role and provided support to son Guy and his Lizzette in [facility], pt arrived via EMS. Aurora Castellanos EMT 01/28/24 1631 Normal [facility] ED Provider Noteon ED Provider Note Normal [facility] FREE T4on 01-28-2024 Free T4 [Mass/Vol] 1.51 ng/dL Normal 0.78-2.19 [facility] Comment on above: Performed By: #### L [id number] ####Claims Investigator: RUTH ANN BRAGG ([id number])[facility] [place] [address] Free T4 [Mass/Vol]on 024 Free T4 Dialysis [Mass/Vol] 1.51 ng/dL 0.78 - 2.19 ng/dL [facility] HEMOGLOBIN A1Con 01-28-2024 Glucose [Mass/Vol] 128 mg/dL Normal [facility] Comment on above: Performed By: #### L AB90 ####Claims Investigator: RUTH ANN BRAGG ([id number])[facility] ([facility])[address] [place] [address] HbA1c (Bld) [Mass fraction] 6.1 % High <5.7 [facility] Comment on above: Result Comment: Norm al less than 5.7%Prediabetes 5.7% to 6.4%Diabetes 6.5% or higher--HgbA1C levels may not be accurate in patients who have renal disease, received recent blood transfusions, are anemic, or who have dyshemoglobinemia. Performed By: #### L AB90 ####Claims Investigator: RUTH ANN BRAGG ([id number])[facility] ([facility])[address] [place] [address] LACTIC ACID WITH REFLEXon Lactate [Moles/Vol] 1.4 mmol/L Normal 0.7-2.0 [facility] Comment on above: Performed By: #### L [id number] ####Claims Investigator: RUTH ANN BRAGG ([id number])[facility] ([facility])[address] [place] [address] Laboratory - Chemistry and C hemistry - challengeon 01-28-2024 Troponin I.cardiac [Mass/Vol] 0.018 ng/mL NINF - 0.034 ng/mL [facility] Lactate [Moles/Vol] 1.4 mmol/L 0.7 - 2. 0 mmol/L [facility] Glucose [Mass/Vol] 135 mg/dL High 70 - 100 mg/dL [facility] Average glucose Estimated from glycated hemoglobin (Bld) [Mass/Vol] 128 mg/dL [facility] CRP [Mass/Vol] mg/L [facility] mg/L [facility] TSH Qn 1.503 m[IU]/L [facility] h Free T3 [Mass/Vol] 3.08 pg/mL 2.77 - 5. 27 pg/mL [facility] Troponin I.cardiac [Mass/Vol] 0.015 ng/mL NINF - 0.034 ng/mL [facility] Laboratory - Hematology and Cell countson 01-28-2024 HbA1c (Bld) [Mass fraction] 6.1 % High [facility] - 5.7 % [facility] Comment on above: Normal less than 5.7 % Prediabetes 5.7% to 6.4% Diabetes 6.5% or higher --HgbA1C levels may not be accurate in patients who have renal disease, received recent blood transfusions, are anemic, or who have dyshemoglobinemia. NT PRO BNPon 01-28-2024 Natriuretic peptide B (Bld) [Mass/Vol] 1480 pg/mL High <20-300 [facility] Comment on above: Performed By: #### L [id number], [id number], [id number], LAB15, [id number], [id number] ####Claims Investigator: RUTH ANN BRAGG ([id number])[facility] ([facility])[address] [place] [address] Natriuretic peptide B [Mass/ Vol]on 01-28-2024 Interpretation and review of laboratory results Abnormal [facility] Natriuretic peptide B (Bld) [Mass/Vol] 1480 pg/mL High <20 - 300 [facility] No Panel Informationon 01-27 Interpretation and review of laboratory results Normal [facility] Interpretation and review of laboratory results Abnormal [facility] Performed by: [facility], [address] [place] [address] CLIA ID: [id number] [facility] Interpretation and review of laboratory results Abnormal [facility] Interpretation and review of laboratory results Normal [facility] Radiology Study observation (narrative) Summ He alth T3 FREEon 01-28-2024 Free T3 [Mass/Vol] 3.08 pg/mL Normal 2.77-5.27 [facility] Comment on above: Performed By: #### L AB137, [id number], [id number], LAB15, [id number], [id number] ####Claims Investigator: RUTH ANN BRAGG ([id number])[facility] ([facility])[address] [place] [address] THYROID STIMULATING HORMONEo n 01-28-2024 THYROID STIMULATING HORMONE 1.503 uIU/mL Normal 0.465-4.680 [facility] Comment on above: Performed By: #### L AB137, [id number], [id number], LAB15, [id number], [id number] ####Claims Investigator: RUTH ANN BRAGG ([id number])[facility] ([facility])[address] [place] [address] TROPONIN Ion 01-28-2024 Troponin I.cardiac [Mass/Vol] 0.018 ng/mL Normal <0.034 [facility] Comment on above: Result Comment: OLIVIA Mazariegos COMMENTS:Patients with high levels of Biotin oral intake (ie >5 mg/day) may have falsely decreased Troponin levels. Performed By: #### L [id number] ####Claims Investigator: RUTH ANN BRAGG ([id number])[facility] ([facility])[address] [place] [address] TROPONIN, WITH SERIAL REFLEX on 01-28-2024 Troponin I.cardiac [Mass/Vol] 0.015 ng/mL Normal <0.034 [facility] Comment on above: Result Comment: OLIVIA Mazariegos COMMENTS:Patients with high levels of Biotin oral intake (ie >5 mg/day) may have falsely decreased Troponin levels. Performed By: #### L AB137, [id number], [id number], LAB15, [id number], [id number] ####Claims Investigator: RUTH ANN BRAGG ([id number])[facility] ([facility])[address] [place] [address] TSH Qnon 01-28-2024 Interpretation and review of laboratory results Normal [facility] Troponin I.cardiac [Mass/Vol ]on 01-28-2024 Interpretation and review of laboratory results Normal [facility] Patients with high levels of Biotin oral intake (ie >5 mg/day) may have falsely decreased Troponin levels. [facility] Interpretation and review of laboratory results Normal [facility] Patients with high levels of Biotin oral intake (ie >5 mg/day) may have falsely decreased Troponin levels. [facility] URINE CULTUREon 01-28-2024 Bacteria identified Cx Nom (U) Normal [facility] Comment on above: Performed By: #### L [id number] ####Claims Investigator: CHERYL STOREY ([id number])[facility] ([facility])[address] [place] [address] Urinalysis complete panel (U )Ordered By: Víctor Loza on 01-28-2024 Bacteria LM.HPF (Urine sed) [#/Area] Many Abnormal Negative /HPF [facility] Bilirubin Ql (U) Negative Negative mg/dL [facility] Clarity (U) Turbid Abnormal Clear [facility] Color (U) Yellow Lt. Yellow [facility] Epithelial cells.squamous LM.HPF (Urine sed) [#/Area] 3-5 [facility] Glucose Ql (U) Normal Normal (<70) mg/dL [facility] Hemoglobin Ql (U) 0.06 mg/dL Abnormal Negative [facility] Interpretation and review of laboratory results Abnormal [facility] Ketones (U) [Mass/Vol] Negative Negat balbina mg/dL [facility] Leukocyte clumps LM.HPF (Urine sed) [#/Area] Rare Abnormal Negative /HPF [facility] Leukocyte esterase Test strip Ql (U) 250 Abnormal Negative Yomi/uL [facility] Mucus LM.HPF (Urine sed) [#/Area] Few Negative /LPF [facility] Nitrite Ql (U) Negative Negative [facility] pH (U) 6.0 [pH] 5.0 - 8.0 pH [facility] Protein (U) [Mass/Vol] 50 mg/dL Abnormal Negative [facility] RBC LM.HPF (Urine sed) [#/Area] 3-5 Abnormal [facility] Specific gravity (U) [Rel density] 1.015 1.005 - 1.030 [facility] Urobilinogen (U) [Mass/Vol] 2 mg/dL Abnormal Normal (0-1) [facility] WBC LM.HPF (Urine sed) [#/Area] 26-50 Abnormal [facility] US Retroperitoneumon 01-25-2 024 Radiology Study observation (narrative) Marya mckinney CNOVon 01-06-2024 CNOV Office Visit (FPDOYL) MIKEL WINSTON ([id number]) 1945 F Date Time Provider Department 01/06/24 1:00 PM KOMAL COHN FPDOYL During your visit today, we recorded the following information about you: Temperature Pulse Blood pressure Weight 98 degrees 61/minute 134/70 93.4 kg Height 1.626 m Melanie Ellsworth 05/29/2024 4:07 PM Addendum [facility] Lalit, [address] [place] [address] Date of Evaluation: 01/06/2024 Patient Name: Mikel Winston : 1945 Chief Complaint: Patient presents with: Follow Up: 4 week follow up for UTI Diabetes Wound Check: Right lower leg dry skin patient wants talk about Lasix Nursing Intake: There are no exam notes on file for this visit. Subjective Ms. Winston is a 78 year old female who presents with the following complaint(s): The history is provided by the patient. No manager language was used. Diabetes She presents for her follow-up diabetic visit. She has type 2 diabetes mellitus. Pertinent negatives for hypoglycemia include no dizziness, headaches or nervousness/anxiousn ess. Pertinent negatives for diabetes include no chest pain, no fatigue and no weakness. Wound Check Pertinent negatives include no chest pain, coughing, fatigue, headaches, numbness or weakness. Hypertension This is a chronic problem. The current episode started more than 1 year ago. Pertinent negatives include no chest pain, headaches, palpitations or shortness of breath. There is no history of kidney disease. Allergies This is a recurrent problem. The problem occurs intermittently. Pertinent negatives include no chest pain, coughing, fatigue, headaches, numbness or weakness. Edema This is a recurrent problem. Pertinent negatives include no chest pain, coughing, fatigue, headaches, numbness or weakness. Hypercholesterolemia This is a chronic problem. The current episode started more than 1 year ago. Pertinent negatives include no chest pain or shortness of breath. Review of Systems Constitutional: Negative for fatigue and unexpected weight change. HENT: Negative for nosebleeds. Eyes: Negative for redness and visual disturbance. Respiratory: Negative for apnea, cough and shortness of breath. Cardiovascular: Negative for chest pain, palpitations and leg swelling. Genitourinary: Negative for hematuria. Neurological: Negative for dizziness, weakness, light-headedness, numbness and headaches. Hematological: Does not bruise/bleed easily. Psychiatric/Behavior al: The patient is not nervous/anxious. PAST MEDICAL HISTORY Diagnosis Date Anemia Diabetes (HCC) Diverticulosis Dysphagia FHx: colon cancer Hemorrhoids Hepatic flexure syndrome History of colon polyps Hypertension BARRON (nonalcoholic steatohepatitis) UTI (urinary tract infection) PAST SURGICAL HISTORY Procedure Laterality Date COLONOSCOPY 05/09/2012 TUBAL LIGATION HX FAMILY HISTORY Problem Relation Age of Onset Colon Cancer Mother other (Liver disease) Mother Social History Tobacco Use Smoking status: Former Smokeless tobacco: Never Vaping Use Vaping Use: Never used Substance Use Topics Alcohol use: No Drug use: No Current Outpatient Medications Medication Sig VITAMIN B-12 1,000 mcg tab take 1 tablet by mouth every day levothyroxine (SYNTHROID) 50 mcg tablet take 1 tablet by mouth every day Blood-Glucose Meter Use to test blood sugar blood sugar diagnostic (BLOOD GLUCOSE TEST) test strip Use to test blood sugar BID Lancets lancets Use to test blood sugar BID ACCU-CHEK KENROY PLUS TEST STRP test strip 1 STRIP TWICE DAILY. USE TO TEST BLOOD SUGAR TWICE A DAY cholecalciferol, vitamin D3, (VITAMIN D3 ORAL) Take by mouth. aspirin 81 mg chewable tablet Take 81 mg by mouth. Vitamin E, dl, acetate, (VITAMIN E) 400 unit capsule Take 800 Units by mouth. atenolol (TENORMIN) 50 mg tablet Take 1 tablet by mouth once daily. Cyanocobalamin 1,000 mcg TbER Take 1 tablet by mouth once daily. ferrous sulfate 325 mg (65 mg iron) tablet Take 1 tablet by mouth every afternoon. fluticasone (FLONASE) 50 mcg/actuation nasal spray Use 2 Sprays in each nostril once daily. losartan (COZAAR) 25 mg tablet Take 1 tablet by mouth every afternoon. metFORMIN (GLUCOPHAGE) 500 mg tablet Take 1 tablet by mouth two times a day with meals. mirabegron (MYRBETRIQ) 25 mg Tb24 Take 1 tablet by mouth once daily. nystatin (MYCOSTATIN) powder Apply 1 application to affected area three times a day. APPLY TO AFFECTED AREA omeprazole (PRILOSEC) 40 mg capsule Take 1 capsule by mouth every afternoon. rosuvastatin (CRESTOR) 20 mg tablet Take 1 tablet by mouth once daily. citalopram (CELEXA) 20 mg tablet Take 0.5 tablets by mouth once daily for 7 (more content not included)... [facility] Ricki 01-06-2024 JATIN Telephone (HUMBERTODOYL) MIKEL WINSTON ([id number]) 1945 F Date Time Provider Department 01/06/24 KOMAL COHNYL During your visit today, we recorded the following information about you: Sylvia Monroy 01/06/2024 2:51 PM Signed Consult to nephrology CKD chronic kidney disease stage 4 GFR 15-29 ml/min Confirm [id number] Sylvia Monroy Allergies As of Date: 01/06/2024 Noted Allergy Reaction CODEINE 02/24/2016 4 - Hives 2 - Rash CODEINE SULFATE 06/13/2018 16 - Unknown Date Reviewed: 01/06/2024 Reviewed by: Arnel Govea LPN - Fully Assessed Reason for Visit: Consult [502] Cmt: Consult to nephrology, ckd chronic kidney disease state 4 gfr 15-29 confirm [id number] Prescriptions as of 01/06/2024 - atenolol (TENORMIN) 50 mg tablet Take 1 tablet by mouth once daily. - Cyanocobalamin 1,000 mcg TbER Take 1 tablet by mouth once daily. - ferrous sulfate 325 mg (65 mg iron) tablet Take 1 tablet by mouth every afternoon. - fluticasone (FLONASE) 50 mcg/actuation nasal spray Use 2 Sprays in each nostril once daily. - losartan (COZAAR) 25 mg tablet Take 1 tablet by mouth every afternoon. - metFORMIN (GLUCOPHAGE) 500 mg tablet Take 1 tablet by mouth two times a day with meals. - mirabegron (MYRBETRIQ) 25 mg Tb24 Take 1 tablet by mouth once daily. - nystatin (MYCOSTATIN) powder Apply 1 application to affected area three times a day. APPLY TO AFFECTED AREA - omeprazole (PRILOSEC) 40 mg capsule Take 1 capsule by mouth every afternoon. - rosuvastatin (CRESTOR) 20 mg tablet Take 1 tablet by mouth once daily. - citalopram (CELEXA) 20 mg tablet Take 0.5 tablets by mouth once daily for 7 days, THEN 1 tablet once daily. - VITAMIN B-12 1,000 mcg tab take 1 tablet by mouth every day - levothyroxine (SYNTHROID) 50 mcg tablet take 1 tablet by mouth every day - potassium chloride SR (MICRO-K) 10 mEq CR capsule TAKE 1 CAPSULE BY MOUTH EVERY DAY NEEDED WITH LASIX - Blood-Glucose Meter Use to test blood sugar - blood sugar diagnostic (BLOOD GLUCOSE TEST) test strip Use to test blood sugar BID - Lancets lancets Use to test blood sugar BID - benzonatate (TESSALON PERLE) 100 mg capsule - ACCU-CHEK KENROY PLUS TEST STRP test strip 1 STRIP TWICE DAILY. USE TO TEST BLOOD SUGAR TWICE A DAY - MULTIVITAMIN ORAL Take by mouth. - cholecalciferol, vitamin D3, (VITAMIN D3 ORAL) Take by mouth. - aspirin 81 mg chewable tablet Take 81 mg by mouth. - Vitamin E, dl, acetate, (VITAMIN E) 400 unit capsule Take 800 Units by mouth. Problem List As Of Date 01/06/2024 Noted Resolved Hypertension [I10] Hyperlipidemia, mixed [E78.2] 08/28/2020 Diabetes (HCC) [E11.9] 08/28/2020 Generalized edema [R60.1] 08/28/2020 Hypothyroidism, acquired [E03.9] 08/28/2020 History of DVT (deep vein thrombosis) [Z86.718] 08/28/2020 Nocturnal hypoxia [G47.34] 08/28/2020 Seasonal allergies [J30.2] 11/26/2020 Blood infection [B99.9] 01/24/2022 Bilateral leg edema [R60.0] 05/03/2022 Chronic kidney disease, stage 3b (HCC) [N18.32] 12/01/2022 Acute deep vein thrombosis (DVT) of other speci*12/01/2022 Congestive heart failure, unspecified HF chroni*12/01/2022 Angina at rest (HCC) [I20.89] 12/01/2022 Obesity, Class I, BMI 30-34.9 [E66.9] 12/01/2022 Systolic murmur [R01.1] 12/26/2022 Platelets decreased ([facility]) [D69.6] 12/26/2022 Depression [F32.A] 12/11/2023 Encounter Status:Closed by SYLVIA MONROY on 01/06/24 [facility] CNPN Telephone (HUMBERTODOYL) MIKEL WINSTON ([id number]) 1945 F Date Time Provider Department 01/06/24 KOMAL COHNDOYL During your visit today, we recorded the following information about you: Sylvia Monroy 01/06/2024 2:50 PM Signed Consult to ophthalmology Screening for diabetic retinopathy Confirm [id number] Sylvia Monroy Allergies As of Date: 01/06/2024 Noted Allergy Reaction CODEINE 02/24/2016 4 - Hives 2 - Rash CODEINE SULFATE 06/13/2018 16 - Unknown Date Reviewed: 01/06/2024 Reviewed by: Arnel Govea LPN - Fully Assessed Reason for Visit: Consult [502] Cmt: Consult to ophthalmology, screening for diabetic retinopathy confirm [id number] Prescriptions as of 01/06/2024 - atenolol (TENORMIN) 50 mg tablet Take 1 tablet by mouth once daily. - Cyanocobalamin 1,000 mcg TbER Take 1 tablet by mouth once daily. - ferrous sulfate 325 mg (65 mg iron) tablet Take 1 tablet by mouth every afternoon. - fluticasone (FLONASE) 50 mcg/actuation nasal spray Use 2 Sprays in each nostril once daily. - losartan (COZAAR) 25 mg tablet Take 1 tablet by mouth every afternoon. - metFORMIN (GLUCOPHAGE) 500 mg tablet Take 1 tablet by mouth two times a day with meals. - mirabegron (MYRBETRIQ) 25 mg Tb24 Take 1 tablet by mouth once daily. - nystatin (MYCOSTATIN) powder Apply 1 application to affected area three times a day. APPLY TO AFFECTED AREA - omeprazole (PRILOSEC) 40 mg capsule Take 1 capsule by mouth every afternoon. - rosuvastatin (CRESTOR) 20 mg tablet Take 1 tablet by mouth once daily. - citalopram (CELEXA) 20 mg tablet Take 0.5 tablets by mouth once daily for 7 days, THEN 1 tablet once daily. - VITAMIN B-12 1,000 mcg tab take 1 tablet by mouth every day - levothyroxine (SYNTHROID) 50 mcg tablet take 1 tablet by mouth every day - potassium chloride SR (MICRO-K) 10 mEq CR capsule TAKE 1 CAPSULE BY MOUTH EVERY DAY NEEDED WITH LASIX - Blood-Glucose Meter Use to test blood sugar - blood sugar diagnostic (BLOOD GLUCOSE TEST) test strip Use to test blood sugar BID - Lancets lancets Use to test blood sugar BID - benzonatate (TESSALON PERLE) 100 mg capsule - ACCU-CHEK KENROY PLUS TEST STRP test strip 1 STRIP TWICE DAILY. USE TO TEST BLOOD SUGAR TWICE A DAY - MULTIVITAMIN ORAL Take by mouth. - cholecalciferol, vitamin D3, (VITAMIN D3 ORAL) Take by mouth. - aspirin 81 mg chewable tablet Take 81 mg by mouth. - Vitamin E, dl, acetate, (VITAMIN E) 400 unit capsule Take 800 Units by mouth. Problem List As Of Date 01/06/2024 Noted Resolved Hypertension [I10] Hyperlipidemia, mixed [E78.2] 08/28/2020 Diabetes (HCC) [E11.9] 08/28/2020 Generalized edema [R60.1] 08/28/2020 Hypothyroidism, acquired [E03.9] 08/28/2020 History of DVT (deep vein thrombosis) [Z86.718] 08/28/2020 Nocturnal hypoxia [G47.34] 08/28/2020 Seasonal allergies [J30.2] 11/26/2020 Blood infection [B99.9] 01/24/2022 Bilateral leg edema [R60.0] 05/03/2022 Chronic kidney disease, stage 3b (HCC) [N18.32] 12/01/2022 Acute deep vein thrombosis (DVT) of other speci*12/01/2022 Congestive heart failure, unspecified HF chroni*12/01/2022 Angina at rest (HCC) [I20.89] 12/01/2022 Obesity, Class I, BMI 30-34.9 [E66.9] 12/01/2022 Systolic murmur [R01.1] 12/26/2022 Platelets decreased (HCC) [D69.6] 12/26/2022 Depression [F32.A] 12/11/2023 Encounter Status:Closed by SYLVIA MONROY on 01/06/24 Normal [facility] HEMOGLOBIN A1C (POC)on 01-05 HbA1c (Bld) [Mass fraction] 6.5 % Abnormal 4.3 - 5.6 % [facility] Comment on above: Location:[facility], [address] [place] [address], [facility] Point of care (POC) Hemoglobin A1c (HGBA1C) testing is intended to assess glucose control and provide a management tool for patients known to have diabetes and their healthcare providers. Target HGBA1C levels may depend on specific clinical circumstances. POC HGBA1C is not intended for use as a diagnostic or screening test; laboratory-based testing should be used for diagnostic purposes. The following information is supplemental and may not be applicable to specific diabetes management situations: The POC device green plumber provides a normal range of 4.2% to 6.5% for the HGBA1C POC test. However, the [place] [employer] guidelines indicate that patients with HGBA1C in the range of 5.7% to 6.4% are at increased risk for development of diabetes and that intervention by lifestyle modification may be beneficial. A HGBA1C level greater than or equal to 6.5% is considered diagnostic of diabetes, pending confirmatory testing. Use of HGBA1C testing to evaluate glucose control may not be appropriate for patients with hemoglobin variants or other conditions (e.g. anemia) that alter red blood cell lifespan. Interpretation and review of laboratory results Abnormal [facility] CNPNon 12-16-2023 CNPN Telephone (FPDOYL) MIKEL WINSTON ([id number]) 1945 F Date Time Provider Department 12/16/23 KOMAL COHN During your visit today, we recorded the following information about you: Arnel Govea LPN 12/16/2023 4:02 PM Signed ----- Message from Komal Cohn DO sent at 12/16/2023 3:31 PM EDT ----- End stage kidney disease neph conult us ordered stop lasix I spoke qwith pt but she lack insight. She will hav he dgtr call me Tuesday I called son vincent but no answer Arnel Govea LPN 12/16/2023 4:07 PM Signed Tried to call the patients son, there was no answer. Grace Linda LPN 12/20/2023 9:15 AM Signed Attempted to LM for pt to rtn call. is full, unable at this time. Will attempt to contact later. Grace Linda LPN 12/20/2023 4:15 PM Signed Need to have order for Neph referral Grace Linda LPN 12/20/2023 4:15 PM Signed Spoke to Clinton. Related all the information from Dr. Cohn. Clinton states that his sister generally handles all this for Mikel, but she has been working more recently, so Clinton may have to handle this. 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 No order for referral - sent message back to For the referral. Allergies As of Date: 12/16/2023 Noted Allergy Reaction CODEINE 02/24/2016 4 - Hives 2 - Rash CODEINE SULFATE 06/13/2018 16 - Unknown Date Reviewed: 12/07/2023 Reviewed by: Arnel Govea LPN - Fully Assessed Prescriptions as of 01/04/2024 - citalopram (CELEXA) 20 mg tablet Take 0.5 tablets by mouth once daily for 7 days, THEN 1 tablet once daily. - MYRBETRIQ 25 mg Tb24 take 1 tablet by mouth every day - losartan (COZAAR) 25 mg tablet take 1 tablet by mouth every day - omeprazole (PRILOSEC) 40 mg capsule take 1 capsule by mouth every day - VITAMIN B-12 1,000 mcg tab take 1 tablet by mouth every day - ferrous sulfate 325 mg (65 mg iron) tablet take 1 tablet by mouth every day - levothyroxine (SYNTHROID) 50 mcg tablet take 1 tablet by mouth every day - nystatin (MYCOSTATIN) powder APPLY 1 APPLICATION TO AFFECTED AREA THREE TIMES DAILY. APPLY TO AFFECTED AREA - atenolol (TENORMIN) 50 mg tablet TAKE 1 TABLET BY MOUTH EVERY DAY - fluticasone (FLONASE) 50 mcg/actuation nasal spray SPRAY 2 SPRAYS INTO EACH NOSTRIL EVERY DAY - metFORMIN (GLUCOPHAGE) 500 mg tablet TAKE 1 TABLET BY MOUTH TWICE A DAY WITH MEALS - potassium chloride SR (MICRO-K) 10 mEq CR capsule TAKE 1 CAPSULE BY MOUTH EVERY DAY NEEDED WITH LASIX - Cyanocobalamin 1,000 mcg TbER Take 1 tablet by mouth once daily. - Blood-Glucose Meter Use to test blood sugar - blood sugar diagnostic (BLOOD GLUCOSE TEST) test strip Use to test blood sugar BID - Lancets lancets Use to test blood sugar BID - rosuvastatin (CRESTOR) 20 mg tablet Take 20 mg by mouth once daily. - benzonatate (TESSALON PERLE) 100 mg capsule - ACCU-CHEK KENROY PLUS TEST STRP test strip 1 STRIP TWICE DAILY. USE TO TEST BLOOD SUGAR TWICE A DAY - MULTIVITAMIN ORAL Take by mouth. - cholecalciferol, vitamin D3, (VITAMIN D3 ORAL) Take by mouth. - aspirin 81 mg chewable tablet Take 81 mg by mouth. - Vitamin E, dl, acetate, (VITAMIN E) 400 unit capsule Take 800 Units by mouth. Problem List As Of Date 12/16/2023 Noted Resolved Hypertension [I10] Hyperlipidemia, mixed [E78.2] 08/28/2020 Diabetes (HCC) [E11.9] 08/28/2020 Generalized edema [R60.1] 08/28/2020 Hypothyroidism, acquired [E03.9] 08/28/2020 History of DVT (deep vein thrombosis) [Z86.718] 08/28/2020 Nocturnal hypoxia [G47.34] 08/28/2020 Seasonal allergies [J30.2] 11/26/2020 Blood infection [B99.9] 01/24/2022 Bilateral leg edema [R60.0] 05/03/2022 Chronic kidney disease, stage 3b ([facility]) [N18.32] 12/01/2022 Acute deep vein thrombosis (DVT) of other speci*12/01/2022 Congestive heart failure, unspecified HF chroni*12/01/2022 Angina at rest ([facility]) [I20.89] 12/01/2022 Obesity, Class I, BMI 30-34.9 [E66.9] 12/01/2022 Systolic murmur [R01.1] 12/26/2022 Platelets decreased ([facility]) [D69.6] 12/26/2022 Depression [F32.A] 12/11/2023 Encounter Status:Closed by ARNEL GOVEA on 01/04/24 [facility] Kaitlin 12-07-2023 CNOV Office Visit (FPDOYL) MIKEL WINSTON ([id number]) 1945 F Date Time Provider Department 12/07/23 10:30 AM KOMAL COHN FPDOYL During your visit today, we recorded the following information about you: Temperature Pulse Blood pressure Weight 98.2 degrees 80/minute 118/60 94.8 kg Height 1.626 m LalitKomal greenbergDO 12/11/2023 10:53 PM Signed [facility] [place] Komal Cohn [address] [place] [address] Date of Evaluation: 12/07/2023 Patient Name: Mikel Winston : 1945 Chief Complaint: Patient presents with: Urinary Frequency: Burning with urination Confusion Leg Edema: Right lower leg, redness, blisters Nursing Intake: There are no exam notes on file for this visit. Subjective Ms. Winston is a 78 year old female who presents with the following complaint(s): The history is provided by the patient. No manager language was used. UTI This is a new problem. The problem has not changed since onset.The quality of the pain is described as burning. There has been no fever. Pertinent negatives include no hematuria. Mental Status Changes This is a new problem. The problem has been gradually improving. Associated symptoms include fatigue. Pertinent negatives include no chest pain, coughing, headaches, numbness or weakness. Edema This is a recurrent problem. The problem occurs daily. The problem has been gradually worsening. Associated symptoms include fatigue. Pertinent negatives include no chest pain, coughing, headaches, numbness or weakness. Depression Pertinent negatives include no weakness. This is a recurrent problem. The problem has been gradually worsening since onset. Review of Systems Constitutional: Positive for fatigue. Negative for unexpected weight change. HENT: Negative for nosebleeds. Eyes: Negative for redness and visual disturbance. Respiratory: Negative for apnea, cough and shortness of breath. Cardiovascular: Positive for leg swelling. Negative for chest pain and palpitations. Genitourinary: Positive for dysuria. Negative for hematuria. Neurological: Negative for dizziness, weakness, light-headedness, numbness and headaches. Hematological: Does not bruise/bleed easily. Psychiatric/Behavior al: Positive for depression. The patient is not nervous/anxious. PAST MEDICAL HISTORY Diagnosis Date Anemia Diabetes (HCC) Diverticulosis Dysphagia FHx: colon cancer Hemorrhoids Hepatic flexure syndrome History of colon polyps Hypertension BARRON (nonalcoholic steatohepatitis) UTI (urinary tract infection) PAST SURGICAL HISTORY Procedure Laterality Date COLONOSCOPY 05/09/2012 TUBAL LIGATION HX FAMILY HISTORY Problem Relation Age of Onset Colon Cancer Mother other (Liver disease) Mother Social History Tobacco Use Smoking status: Former Smokeless tobacco: Never Vaping Use Vaping Use: Never used Substance Use Topics Alcohol use: No Drug use: No Current Outpatient Medications Medication Sig MYRBETRIQ 25 mg Tb24 take 1 tablet by mouth every day losartan (COZAAR) 25 mg tablet take 1 tablet by mouth every day omeprazole (PRILOSEC) 40 mg capsule take 1 capsule by mouth every day VITAMIN B-12 1,000 mcg tab take 1 tablet by mouth every day ferrous sulfate 325 mg (65 mg iron) tablet take 1 tablet by mouth every day furosemide (LASIX) 20 mg tablet take 1 tablet by mouth every day levothyroxine (SYNTHROID) 50 mcg tablet take 1 tablet by mouth every day nystatin (MYCOSTATIN) powder APPLY 1 APPLICATION TO AFFECTED AREA THREE TIMES DAILY. APPLY TO AFFECTED AREA atenolol (TENORMIN) 50 mg tablet TAKE 1 TABLET BY MOUTH EVERY DAY fluticasone (FLONASE) 50 mcg/actuation nasal spray SPRAY 2 SPRAYS INTO EACH NOSTRIL EVERY DAY metFORMIN (GLUCOPHAGE) 500 mg tablet TAKE 1 TABLET BY MOUTH TWICE A DAY WITH MEALS potassium chloride SR (MICRO-K) 10 mEq CR capsule TAKE 1 CAPSULE BY MOUTH EVERY DAY NEEDED WITH LASIX Cyanocobalamin 1,000 mcg TbER Take 1 tablet by mouth once daily. Blood-Glucose Meter Use to test blood sugar blood sugar diagnostic (BLOOD GLUCOSE TEST) test strip Use to test blood sugar BID Lancets lancets Use to test blood sugar BID rosuvastatin (CRESTOR) 20 mg tablet Take 20 mg by mouth once daily. ACCU-CHEK KENROY PLUS TEST STRP test strip 1 STRIP TWICE DAILY. USE TO TEST BLOOD SUGAR TWICE A DAY cholecalciferol, vitamin D3, (VITAMIN D3 ORAL) Take by mouth. aspirin 81 mg chewable tablet Take 81 mg by mouth. Vitamin E, dl, acetate, (VITAMIN E) 400 unit capsule Take 800 Units by mouth. sulfamethoxazole-tri methoprim (BACTRIM DS) 800-160 mg per tablet Take 1 tablet by mouth two times a day for 7 days. furosemide (LASIX) 40 mg tablet Take 1 tablet by mouth once daily. citalopram (CELEX (more content not included)... Normal [facility] UA DIP, URINE (POC)on 2023 BILIRUBIN UA (POCT) Negative Negative [facility] CLARITY UA (POCT) Slightly Cloudy Cl [facility] COLOR UA (POCT) Stephanie [facility] GLUCOSE UA (POCT) Negative Negative mg/dL [facility] Hemoglobin Ql (U) Small Abnormal Negative [facility] Interpretation and review of laboratory results Abnormal [facility] KETONE UA (POCT) Negative Negative mg/dL [facility] LEUKOCYTES UA (POCT) Small Abnormal Negative [facility] NITRITE UA (POCT) Positive Abnormal Negative [facility] PH UA (POCT) 5.5 4.5 - 8.0 [facility] Protein Ql (U) 100 mg/dL Abnormal Negative [facility] SPECIFIC GRAVITY UA (POCT) >=1.030 1.005 - 1.030 [facility] UROBILINOGEN UA (POCT) 1.0 Lillian l E.U./dL [facility] Location:[facility], [address] [place] [address], [address] [place] [address] POINT OF CARE [facility] URINE CULTUREon 07-01-2023 Bacteria identified Cx Nom (U) >=100,000 CFU/ml Proteus mirabilis Abnormal [facility] HEMOGLOBIN A1C (POC)on 06-27 HbA1c (Bld) [Mass fraction] 7.2 % Abnormal 4.2 - 5.6 % [facility] UA DIP, URINE (POC)on 2022 BILIRUBIN UA (POCT) Negative Negative [facility] CLARITY UA (POCT) Clear [facility] COLOR UA (POCT) Yellow [facility] GLUCOSE UA (POCT) Negative Negative mg/dL [facility] Hemoglobin Ql (U) Trace-intact Abnormal Negative [facility] KETONE UA (POCT) Negative Negative mg/dL [facility] LEUKOCYTES UA (POCT) Large Abnormal Negative [facility] NITRITE UA (POCT) Negative Negative [facility] PH UA (POCT) 6.0 4.5 - 8.0 [facility] Protein Ql (U) Trace Abnormal Negative mg/dL [facility] SPECIFIC GRAVITY UA (POCT) 1.020 1.005 - 1.030 [facility] UROBILINOGEN UA (POCT) 0.2 E.U./dL Lillian l E.U./dL [facility] URINE CULTUREon 06-27-2023 Bacteria identified Cx Nom (U) Invalid Interpretation Code [facility] No Panel Informationon 03-07 No evidence of deep vein or superficial vein thrombosis in the right lower extremity. Vessels demonstrate normal compressibility, color filling, and phasic and spontaneous flow. Contralateral imaging of the left common femoral vein was normal. Right Lower Venous No evidence of deep vein or superficial vein thrombosis. The common femoral, saphenofemoral junction, femoral, popliteal, gastrocnemius, soleal, greater saphenous, posterior tibial, and peroneal veins were imaged in the transverse view and showed normal compressibility. The common femoral, middle femoral, and popliteal veins were imaged in the longitudinal view and showed normal color filling and normal phasic and spontaneous flow. Left Lower Venous For comparison purposes, the left common femoral vein was briefly interrogated. These vein demonstrates normal color filing and compressibility. Doppler flow was phasic and spontaneous. Casework Manager Details A arteaga scale, color Doppler imaging and spectral Doppler analysis ultrasound was performed. During the study longitudinal and transverse views were obtained. Pulsed wave doppler was performed. The exam was performed with the patient in the supine position. Overall the study quality was good. CV CPACS UA DIP, URINE (POC)on 2022 BILIRUBIN UA (POCT) Negative Negative [facility] CLARITY UA (POCT) Clear [facility] COLOR UA (POCT) Yellow [facility] GLUCOSE UA (POCT) Negative Negative mg/dL [facility] HEMOGLOBIN/BLOOD UA (POCT) Trace-lysed Abnormal Negative [facility] KETONE UA (POCT) Negative Negative mg/dL [facility] LEUKOCYTES UA (POCT) Negative Negative [facility] NITRITE UA (POCT) Negative Negative [facility] PH UA (POCT) 5.5 4.5 - 8.0 [facility] Protein Ql (U) Negative Negative mg/dL [facility] SPECIFIC GRAVITY UA (POCT) <=1.005 Abnormal 1.005 - 1.030 [facility] UROBILINOGEN UA (POCT) 1.0 E.U./dL Lillian l E.U./dL [facility] US Heart TransthoracicOrdere d By: Huy Frederick on 12-08-2022 Ascending Aorta 2.8 cm [facility] Work Phone: [phone] Ascending Aorta Index 1.44 cm/m2 [facility] Work Phone: [phone] AV Area by Peak Velocity 1.1 cm2 [facility] Work Phone: [phone] AV Area by VTI 1.1 cm2 [facility] Work Phone: [phone] AV Mean Gradient 21 mmHg [facility] Work Phone: [phone] AV Mean Velocity 2.2 m/s [facility] Work Phone: [phone] AV Peak Gradient 34 mmHg [facility] Work Phone: [phone] AV Peak Velocity 2.9 m/s [facility] Work Phone: [phone] AV Velocity Ratio 0.28 [facility] Work Phone: [phone] AV VTI 77.5 cm [facility] Work Phone: [phone] VINH/BSA Peak Velocity 0.6 cm2/m2 [facility] Work Phone: [phone] VINH/BSA VTI 0.6 cm2/m2 [facility] Work Phone: [phone] EF Physician 45 % [facility] Work Phone: [phone] Fractional Shortening 2D 25 % 28 - 44 % [facility] Work Phone: [phone] Interpretation and review of laboratory results Abnormal [facility] Work Phone: [phone] IVSd 1.1 cm Abnormal 0.6 - 0.9 cm [facility] Work Phone: [phone] LA Diameter 4.6 cm [facility] Work Phone: [phone] LA Size Index 2.37 cm/m2 [facility] Work Phone: [phone] LA Volume 4C 88 mL Abnormal 22 - 52 mL [facility] Work Phone: [phone] LA Volume Index 4C 45 mL/m2 Abnormal 16 - 34 mL/m2 [facility] Work Phone: LV EDV A2C 140 mL [facility] Work Phone: [phone] LV EDV A4C 157 mL [facility] Work Phone: [phone] LV EDV BP 152 mL Abnormal 56 - 104 mL [facility] Work Phone: [phone] LV EDV Index A2C 72 mL/m2 [facility] Work Phone: [phone] LV EDV Index A4C 81 mL/m2 [facility] Work Phone: [phone] LV EDV Index BP 78 mL/m2 [facility] Work Phone: LV ESV A2C 62 mL [facility] Work Phone: [phone] LV ESV A4C 69 mL [facility] Work Phone: [phone] LV ESV BP 70 mL Abnormal 19 - 49 mL [facility] Work Phone: [phone] LV ESV Index A2C 32 mL/m2 [facility] Work Phone: LV ESV Index A4C 36 mL/m2 [facility] Work Phone: LV ESV Index BP 36 mL/m2 [facility] Work Phone: LV Mass 2D 203.0 g Abnormal 67 - 162 g [facility] Work Phone: LV Mass 2D Index 104.7 g/m2 Abnormal 43 - 95 g/m2 [facility] Work Phone: LV RWT Ratio 0.64 [facility] Work Phone: LVIDd 4.4 cm 3.9 - 5.3 cm [facility] Work Phone: LVIDd Index 2.27 cm/m2 [facility] Work Phone: LVIDs 3.3 cm [facility] Work Phone: [phone] LVIDs Index 1.70 cm/m2 [facility] Work Phone: LVOT Area 4.2 cm2 [facility] Work Phone: LVOT Cardiac Output 5.0 liter/mi nut e [employer] Work Phone: [phone] LVOT Diameter 2.3 cm [employer] Work Phone: [phone] LVOT Mean Gradient 1 mmHg [facility] Work Phone: [phone] LVOT Peak Gradient 3 mmHg [facility] Work Phone: [phone] LVOT Peak Velocity 0.8 m/s [facility] Work Phone: [phone] LVOT Stroke Volume Index 43.9 mL/m2 [employer] Work Phone: [phone] LVOT SV 85.1 ml [facility] Work Phone: [phone] LVOT VTI 20.5 cm [facility] Work Phone: [phone] LVOT:AV VTI Index 0.26 [facility] [employer] Work Phone: [phone] LVPWd 1.4 cm Abnormal 0.6 - 0.9 cm [facility] [employer] Work Phone: [phone] MV A Velocity 0.72 m/s [facility] [employer] Work Phone: [phone] MV E Velocity 0.97 m/s [facility] [employer] Work Phone: [phone] MV E Wave Deceleration Time 206.7 ms [facility] Phone: [phone] MV E/A 1.35 [facility] [employer] Phone: [phone] RV Free Wall Peak S' 7 cm/s [facility] [employer] Work Phone: [phone] TAPSE 1.5 cm Abnormal 1.7 cm [facility] [employer] Work Phone: [phone] [facility] Work Phone: [phone] Heart Transthoracicon Left Ventricle: Left ventricle size is normal. Normal wall thickness. Mildly reduced left ventricular systolic function. The EF by visual approximation is 45%. Moderate hypokinesis of the following segments: mid anterolateral. Right Ventricle: Right ventricle is moderately dilated. Normal systolic function. Aortic Valve: Not well visualized. Severely thickened cusps. Severely calcified cusps. No regurgitation. Moderate stenosis of the aortic valve. AV mean gradient is 21 mmHg. AV area by continuity VTI is 1.1 cm2. Mitral Valve: Trace regurgitation. Tricuspid Valve: Trace regurgitation. Left Atrium: Left atrium is mildly dilated. Left Ventricle Left ventricle size is normal. Normal wall thickness. Mildly reduced left ventricular systolic function. The EF by visual approximation is 45%. Moderate hypokinesis of the following segments: mid anterolateral. Right Ventricle Right ventricle is moderately dilated. Normal systolic function. Left Atrium Left atrium is mildly dilated. Right Atrium Right atrium size is normal. IVC/SVC IVC was not assessed due to poor image quality. Mitral Valve Valve structure is normal. Trace regurgitation. No stenosis noted. Tricuspid Valve Valve structure is normal. Trace regurgitation. Aortic Valve Not well visualized. Severely thickened cusps. Severely calcified cusps. No regurgitation. Moderate stenosis of the aortic valve. AV mean gradient is 21 mmHg. AV area by continuity VTI is 1.1 cm2. Pulmonic Valve Valve structure is normal. Trace regurgitation. Ascending Aorta Normal sized sinuses of Valsalva and ascending aorta. Pericardium No pericardial effusion. Septum No interatrial shunt visualized on color Doppler. Pulmonary Artery Pulmonary artery was not well visualized. Study Details Image quality: suboptimal. Heart rate: 64 bpm. Blood pressure: 123/82 mmHg. Technical qualifiers: Technically difficult study with poor endocardial visualization. Ultrasound enhancement agent was given to enhance imaging. CV CPACS CBC W Auto Differential pane l (Bld)Ordered By: Jr Chase on 11-19-2022 Erythrocyte distribution width (RBC) [Ratio] 13.7 % 11.5 - 14.5 % [employer] [facility] Hematocrit (Bld) [Volume fraction] 28.4 % Low 35.0 - 47.0 % [employer] [facility] Hemoglobin (Bld) [Mass/Vol] 9.3 g/dL Low 11.7 - 16.0 g/dL [employer] [facility] MCH (RBC) [Entitic mass] 31.2 pg 26. 0 - 34.0 pg [employer] [facility] MCHC (RBC) [Mass/Vol] 32.9 % 32.0 - 36.0 % [employer] [facility] MCV (RBC) [Entitic vol] 95.0 fL 80.0 - 98.0 fL [employer] [facility] Nucleated RBC/100 WBC (Bld) [Ratio] 0.0 % [employer] [facility] Platelet mean volume (Bld) [Entitic vol] 9.8 fL 7.4 - 12.4 fL [employer] [facility] Platelets (Bld) [#/Vol] 79 10*3/uL Low 140 - 440 10*3/uL [facility] RBC (Bld) [#/Vol] 2.99 10*6/uL Low 3.8 - 5.20 10*6/uL [facility] WBC (Bld) [#/Vol] 3.5 10*3/uL Low 3.6 - 10.7 10*3/uL [facility] Comprehensive metabolic 1998 panelon 11-19-2022 Albumin [Mass/Vol] 2.7 g/dL Low 3.5 - 5.0 g/dL [facility] ALP [Catalytic activity/Vol] 121 U/L 38 - 126 U/L [facility] ALT [Catalytic activity/Vol] 21 U/L 0 - 34 U/L [facility] Anion gap [Moles/Vol] 3 mmol/L 3 - 13 mmol/L [facility] AST [Catalytic activity/Vol] 39 U/L 15 - 46 U/L [facility] Bilirubin [Mass/Vol] 0.8 mg/dL 0.2 - 1 .3 mg/dL [facility] Calcium [Mass/Vol] 8.3 mg/dL Low 8.4 - 10. 4 mg/dL [facility] Chloride [Moles/Vol] 111 mmol/L High 98 - 10 7 mmol/L [facility] CO2 [Moles/Vol] 21 mmol/L Low 22 - 30 mmol/L [facility] Creatinine [Mass/Vol] 1.31 mg/dL High 0.52 - 1.04 mg/dL [facility] GFR/1.73 sq M.predicted MDRD (S/P/Bld) [Vol rate/Area] 42.1 mL/min/{1.73_m2} Low - PINF [facility] Comment on above: Calculation based on the Chronic Kidney Disease Epidemiology Collaboration (CKD-EPI) equation refit without adjustment for race Glucose [Mass/Vol] 159 mg/dL High 70 - 100 mg/dL [facility] Interpretation and review of laboratory results Abnormal [facility] th Potassium [Moles/Vol] 3.7 mmol/L 3.5 - 5.1 mmol/L [facility] Protein [Mass/Vol] 5.3 g/dL Low 6.3 - 8.2 g/dL [facility] Sodium [Moles/Vol] 135 mmol/L 135 - 145 mmol/L [facility] Urea nitrogen [Mass/Vol] 30 mg/dL High 7 - 17 mg/dL [facility] Laboratory - Chemistry and C hemistry - challengeon 11-19-2022 Glucose [Mass/Vol] 176 mg/dL High 70 - 100 mg/dL [facility] Glucose [Mass/Vol] 117 mg/dL High 70 - 100 mg/dL [facility] Manual differential performe d Ql (Bld)on 11-19-2022 Anisocytosis Ql (Bld) Slight Abnormal (none) [facility] Basophils (Bld) [#/Vol] 0.0 10*3/uL 0.0 - 0.2 10*3/uL [facility] Basophils Manual 1 [facility]th Basophils/100 WBC (Bld) 1 % 0 - 2 % [facility] Cells Counted Total (Bld) [#] 100 {cells} [facility] Dacrocytes LM Ql (Bld) Rare Abnormal (none) [facility] Eosinophils (Bld) [#/Vol] 0.2 10*3/uL 0. 0 - 0.5 10*3/uL [facility] Eosinophils Manual 5 High 0 - 1 [facility] Eosinophils/100 WBC (Bld) 5 % 1 - 6 % [facility] Leukocyte morphology finding Nom (Bld) Normal [facility] Lymphocytes (Bld) [#/Vol] 0.8 10*3/uL Low 1. 0 - 4.3 10*3/uL [facility] Lymphocytes Manual 22 [facility] Lymphocytes/100 WBC (Bld) 22 % 20 - 40 % [facility] Monocytes (Bld) [#/Vol] 0.5 10*3/uL 0.0 - 0.8 10*3/uL [facility] Monocytes Manual 13 [facility] Monocytes/100 WBC (Bld) 13 % High 2 - 10 % [facility] Neutrophils (Bld) [#/Vol] 2.1 10*3/uL 1. 8 - 7.0 10*3/uL [facility] Neutrophils Manual 59 [facility] Ovalocytes LM Ql (Bld) Slight Abnormal (none) [facility] Platelet morphology finding Nom (Bld) Normal [facility] Segmented neutrophils/100 WBC (Bld) 59 % 40 - 80 % [facility] WBC corrected for nucl RBC (Bld) [#/Vol] 3.50 10*3/uL Low 3.60 - 10.70 10*3/uL [facility] No Panel Informationon 11-19 Interpretation and review of laboratory results Abnormal [facility]formed [facility]: [facility], [address] [address] CLIA ID: [id number] [facility] Interpretation and review of laboratory results Abnormal [facility] Performed by: [facility], [address] [address] CLIA ID: [id number] [facility] Interpretation and review of laboratory results Abnormal [facility] Basic metabolic 1998 panelon 11-18-2022 Anion gap [Moles/Vol] 6 mmol/L 3 - 13 mmol/L [facility] Calcium [Mass/Vol] 8.8 mg/dL 8.4 - 10. 4 mg/dL [facility] Chloride [Moles/Vol] 112 mmol/L High 98 - 10 7 mmol/L [facility] CO2 [Moles/Vol] 19 mmol/L Low 22 - 30 mmol/L [facility] Creatinine [Mass/Vol] 1.38 mg/dL High 0.52 - 1.04 mg/dL [facility] GFR/1.73 sq M.predicted MDRD (S/P/Bld) [Vol rate/Area] 39.5 mL/min/{1.73_m2} Low - PINF [facility] Comment on above: Calculation based on the Chronic Kidney Disease Epidemiology Collaboration (CKD-EPI) equation refit without adjustment for race Glucose [Mass/Vol] 129 mg/dL High 70 - 100 mg/dL [facility] Interpretation and review of laboratory results Abnormal [facility] Potassium [Moles/Vol] 3.8 mmol/L 3.5 - 5.1 mmol/L [facility] Sodium [Moles/Vol] 138 mmol/L 135 - 145 mmol/L [facility] Urea nitrogen [Mass/Vol] 35 mg/dL High 7 - 17 mg/dL [facility] Slightly Hemolyzed [facility] CBC W Auto Differential pane l (Bld)on 11-18-2022 Basophils (Bld) [#/Vol] 0.0 10*3/uL 0.0 - 0.2 10*3/uL [facility] Basophils/100 WBC (Bld) 0.7 % 0.0 - 2.0 % [facility] Eosinophils (Bld) [#/Vol] 0.1 10*3/uL 0. 0 - 0.5 10*3/uL [facility] Eosinophils/100 WBC (Bld) 2.5 % 1.0 - 6.0 % [facility] Erythrocyte distribution width (RBC) [Ratio] 13.9 % 11.5 - 14.5 % [facility] Hematocrit (Bld) [Volume fraction] 31.2 % Low 35.0 - 47.0 % [facility] Hemoglobin (Bld) [Mass/Vol] 10.4 g/dL Low 11.7 - 16.0 g/dL [facility] Interpretation and review of laboratory results Abnormal [facility] th Lymphocytes (Bld) [#/Vol] 0.8 10*3/uL Low 1. 0 - 4.3 10*3/uL [facility] Lymphocytes/100 WBC (Bld) 21.2 % 20 .0 - 40.0 % [facility] MCH (RBC) [Entitic mass] 31.7 pg 26. 0 - 34.0 pg [facility] MCHC (RBC) [Mass/Vol] 33.2 % 32.0 - 36.0 % [facility] MCV (RBC) [Entitic vol] 95.5 fL 80.0 - 98.0 fL [facility] Monocytes (Bld) [#/Vol] 0.6 10*3/uL 0.0 - 0.8 10*3/uL [facility] Monocytes/100 WBC (Bld) 16.3 % High 2.0 - 10.0 % [facility] Neutrophils (Bld) [#/Vol] 2.2 10*3/uL 1. 8 - 7.0 10*3/uL [facility] Neutrophils/100 WBC (Bld) 59.3 % 40 .0 - 80.0 % [facility] Nucleated RBC/100 WBC (Bld) [Ratio] 0.1 % [facility] Platelet mean volume (Bld) [Entitic vol] 10.3 fL 7.4 - 12.4 fL [facility] Platelets (Bld) [#/Vol] 89 10*3/uL Low 140 - 440 10*3/uL [facility] RBC (Bld) [#/Vol] 3.27 10*6/uL Low 3.8 - 5.20 10*6/uL [facility] WBC (Bld) [#/Vol] 3.6 10*3/uL 3.6 - 10.7 10*3/uL [facility] CBC W Auto Differential pane l (Bld)Ordered By: Ovidio Carson on 11-18-2022 Basophils (Bld) [#/Vol] 0.0 10*3/uL 0.0 - 0.2 10*3/uL [facility] Basophils/100 WBC (Bld) 0.5 % 0.0 - 2.0 % [facility] Eosinophils (Bld) [#/Vol] 0.0 10*3/uL 0. 0 - 0.5 10*3/uL [facility] Eosinophils/100 WBC (Bld) 0.9 % Low 1.0 - 6.0 % [facility] Erythrocyte distribution width (RBC) [Ratio] 13.7 % 11.5 - 14.5 % [facility] Hematocrit (Bld) [Volume fraction] 33.2 % Low 35.0 - 47.0 % [facility] Hemoglobin (Bld) [Mass/Vol] 11.2 g/dL Low 11.7 - 16.0 g/dL [facility] Interpretation and review of laboratory results Abnormal [facility] th Lymphocytes (Bld) [#/Vol] 0.7 10*3/uL Low 1. 0 - 4.3 10*3/uL [facility] Lymphocytes/100 WBC (Bld) 15.0 % Low 20 .0 - 40.0 % [facility] MCH (RBC) [Entitic mass] 31.6 pg 26. 0 - 34.0 pg [facility] MCHC (RBC) [Mass/Vol] 33.7 % 32.0 - 36.0 % [facility] MCV (RBC) [Entitic vol] 93.8 fL 80.0 - 98.0 fL [facility] Monocytes (Bld) [#/Vol] 0.7 10*3/uL 0.0 - 0.8 10*3/uL [facility] Monocytes/100 WBC (Bld) 15.2 % High 2.0 - 10.0 % [facility] Neutrophils (Bld) [#/Vol] 3.0 10*3/uL 1. 8 - 7.0 10*3/uL [facility] Neutrophils/100 WBC (Bld) 68.4 % 40 .0 - 80.0 % [facility] Nucleated RBC/100 WBC (Bld) [Ratio] 0.1 % [facility] Platelet mean volume (Bld) [Entitic vol] 9.7 fL 7.4 - 12.4 fL [facility] Platelets (Bld) [#/Vol] 92 10*3/uL Low 140 - 440 10*3/uL [facility] RBC (Bld) [#/Vol] 3.54 10*6/uL Low 3.8 - 5.20 10*6/uL [facility] WBC (Bld) [#/Vol] 4.4 10*3/uL 3.6 - 10.7 10*3/uL [facility] COVID-19, Flu A/B, and RSV C omboon 11-18-2022 Interpretation and review of laboratory results Normal [facility] Comprehensive metabolic 1998 panelon 11-18-2022 Albumin [Mass/Vol] 3.7 g/dL 3.5 - 5.0 g/dL [facility] ALP [Catalytic activity/Vol] 135 U/L High 38 - 126 U/L [facility] ALT [Catalytic activity/Vol] 29 U/L 0 - 34 U/L [facility] Anion gap [Moles/Vol] 6 mmol/L 3 - 13 mmol/L [facility] AST [Catalytic activity/Vol] 56 U/L High 15 - 46 U/L [facility] Bilirubin [Mass/Vol] 1.1 mg/dL 0.2 - 1 .3 mg/dL [facility] Calcium [Mass/Vol] 9.4 mg/dL 8.4 - 10. 4 mg/dL [facility] Chloride [Moles/Vol] 109 mmol/L High 98 - 10 7 mmol/L [facility] CO2 [Moles/Vol] 22 mmol/L 22 - 30 mmol/L [facility] Creatinine [Mass/Vol] 1.56 mg/dL High 0.52 - 1.04 mg/dL [facility] GFR/1.73 sq M.predicted MDRD (S/P/Bld) [Vol rate/Area] 34.1 mL/min/{1.73_m2} Low - PINF [facility] Comment on above: Calculation based on the Chronic Kidney Disease Epidemiology Collaboration (CKD-EPI) equation refit without adjustment for race Glucose [Mass/Vol] 162 mg/dL High 70 - 100 mg/dL [facility] Interpretation and review of laboratory results Abnormal [facility] Potassium [Moles/Vol] 4.1 mmol/L 3.5 - 5.1 mmol/L [facility] Protein [Mass/Vol] 7.0 g/dL 6.3 - 8.2 g/dL [facility] Sodium [Moles/Vol] 137 mmol/L 135 - 145 mmol/L [facility] Urea nitrogen [Mass/Vol] 38 mg/dL High 7 - 17 mg/dL [facility] Laboratory - Chemistry and C hemistry - challengeon 11-18-2022 Glucose [Mass/Vol] 172 mg/dL High 70 - 100 mg/dL [facility] Glucose [Mass/Vol] 153 mg/dL High 70 - 100 mg/dL [facility] Glucose [Mass/Vol] 126 mg/dL High 70 - 100 mg/dL [facility] Lactate [Moles/Vol] 1.2 mmol/L 0.7 - 2. 0 mmol/L [facility] Laboratory - Microbiology an d Antimicrobial susceptibilityon 11-18-2022 FLUAV RNA HUGO+probe Ql (Resp) Not detected Not Detected [facility] FLUBV RNA HUGO+probe Ql (Resp) Not detected Not Detected [facility] RSV RNA HUGO+probe Ql (Resp) Not detected Not Detected [facility] SARS-CoV-2 (COVID-19) RNA HUGO+probe Ql (Resp) Not detected Not Detected [facility] SARS-CoV-2 (COVID-19) RNA HUGO+probe Ql (Unsp spec) Methodology: real-time, RT-PCR The SARS-CoV-2, Flu A/B, and RSV Combo assay is intended for in vitro diagnostic use under the FDA Emergency Use Authorization (EUA). This test has not been FDA cleared or approved. In compliance with this authorization, please visit www.fda.gov/media/ 7431/download or www.fda.gov/media/ 6596/download to access the applicable information sheets. [facility] No Panel Informationon 11-18 Interpretation and review of laboratory results Abnormal [facility] Performed by: [facility], [address] [place] [address] [place] [id number] CLIA ID: [id number] [facility] Interpretation and review of laboratory results Abnormal [facility] Performed by: [facility], [address] [place] [id number] CLIA ID: [id number] [facility] Interpretation and review of laboratory results Abnormal [facility] Performed by: [facility], [address] [place] [id number] CLIA ID: [id number] [facility] Interpretation and review of laboratory results Normal [facility] Laboratory - Chemistry and C hemistry - challengeon 11-17-2022 Glucose [Mass/Vol] 203 mg/dL High 70 - 100 mg/dL [facility] No Panel Informationon 11-17 Interpretation and review of laboratory results Abnormal [facility] Performed by: [facility], [address] [place] [id number] CLIA ID: [id number] [facility] Urinalysis complete panel (U )Ordered By: Kyung Frederick on 11-17-2022 Bacteria LM.HPF (Urine sed) [#/Area] Moderate Abnormal Negative /HPF [facility] Bilirubin Ql (U) Negative Negative mg/dL [facility] Clarity (U) Clear Clear [facility] Color (U) Yellow Lt. Yellow [facility] Epithelial cells.squamous LM.HPF (Urine sed) [#/Area] 3-5 [facility] Glucose Ql (U) 200 mg/dL Abnormal Normal (<70) [facility] Hemoglobin Ql (U) 0.06 mg/dL Abnormal Negative [facility] Interpretation and review of laboratory results Abnormal [facility] Ketones (U) [Mass/Vol] Negative Negat balbina mg/dL [facility] Leukocyte esterase Test strip Ql (U) Negative Negative Yomi/uL [facility] Mucus LM.HPF (Urine sed) [#/Area] Few Negative /LPF [facility] Nitrite Ql (U) Negative Negative [facility] pH (U) 5.5 [pH] 5.0 - 8.0 pH [facility] Protein (U) [Mass/Vol] 50 mg/dL Abnormal Negative [facility] RBC LM.HPF (Urine sed) [#/Area] 0-2 [facility] Specific gravity (U) [Rel density] 1.020 1.005 - 1.030 [facility] Urobilinogen (U) [Mass/Vol] Normal Normal (0-1) mg/dL [facility] WBC LM.HPF (Urine sed) [#/Area] 3-5 [facility] XR Chest Single viewon 11-17 1. No acute finding suspected given very low lung volumes. Report Dictated on Electronically Signed By: Clinton Serna Electronically Signed Date/Time: 11/17/2022 11:45 PM EDT [facility] Patient Name: MIKEL WINSTON : 1945 Exam Date/Time: 11/17/2022 23:44 Procedure: XR CHEST 1 VIEW Ordering Provider: GRAY DUSTIN Reason For Exam: shortness of breath SINGLE FRONTAL VIEW OF THE CHEST CLINICAL INDICATION: shortness of breath TECHNIQUE: Single frontal view of the chest COMPARISON: 12/17/2021 FINDINGS: Normal heart size. Status post sternotomy. Very low lung volumes. Given this limitation, no vascular congestion or airspace consolidation suspected. [facility] Clinton Serna MD - 11/17/2022 Patient Name: MIKEL WINSTON : 1945 Exam Date/Time: 11/17/2022 23:44 Procedure: XR CHEST 1 VIEW Ordering Provider: GRAY DUSTIN Reason For Exam: shortness of breath SINGLE FRONTAL VIEW OF THE CHEST CLINICAL INDICATION: shortness of breath TECHNIQUE: Single frontal view of the chest COMPARISON: 12/17/2021 FINDINGS: Normal heart size. Status post sternotomy. Very low lung volumes. Given this limitation, no vascular congestion or airspace consolidation suspected. IMPRESSION: 1. No acute finding suspected given very low lung volumes. Report Dictated on Electronically Signed By: Clinton Serna Electronically Signed Date/Time: 11/17/2022 11:45 PM EDT [facility] Radiology Study observation (narrative) [facility] XR Chest Single viewOrdered By: Clinton Serna on 11-17-2022 [facility] Work Phone: CNCOon 08-05-2022 [facility] Letter Text Normal [facility] Basic metabolic 2000 panelon 05-03-2022 Anion gap [Moles/Vol] 12 mmol/L 9 - 18 mmol/L [facility] Calcium [Mass/Vol] 10.6 mg/dL High 8.5 - 10. 2 mg/dL [facility] Chloride [Moles/Vol] 103 mmol/L 97 - 10 5 mmol/L [facility] CO2 [Moles/Vol] 26 mmol/L 22 - 30 mmol/L [facility] Creatinine [Mass/Vol] 1.83 mg/dL High 0.58 - 0.96 mg/dL [facility] Estimated Glomerular Filtration Rate 28 mL/min/1.73m Low >=60 mL/min/1.73 m [facility] Glucose [Mass/Vol] 154 mg/dL High 74 - 99 mg/dL [facility] Potassium [Moles/Vol] 4.5 mmol/L 3.7 - 5.1 mmol/L [facility] Sodium [Moles/Vol] 141 mmol/L 136 - 144 mmol/L [facility] Urea nitrogen [Mass/Vol] 37 mg/dL High 7 - 21 mg/dL [facility] HbA1c (Bld)on 05-03-2022 Average glucose Estimated from glycated hemoglobin (Bld) [Mass/Vol] 151 mg/dL [facility] HbA1c (Bld) [Mass fraction] 6.9 % High 4.3 - 5.6 % [facility] Comp Panel with Mg Reflexon 12-22-2021 Calcium [Mass/Vol] 9.4 mg/dL Normal 8.4-10.[address] [facility] Comment on above: Performed By: #### B GLU #### [facility] [address] [place] [address] ALP [Catalytic activity/Vol] 108 U/L Normal 38-[address] [facility] Comment on above: Performed By: #### B GLU #### [facility] [address] [place] [id number] ALT [Catalytic activity/Vol] 14 U/L Normal 0-[address] [facility] Comment on above: Result Comment: The ALT test is performed by an updated assay method. Please note that the reference intervals have been changed and are now sex specific. Performed By: #### B GLU #### [facility] [address] [place] [address] Anion gap [Moles/Vol] 5 mmol/L Normal 3-13 [facility] Comment on above: Performed By: #### B GLU #### [facility] [address] [place] [address] AST [Catalytic activity/Vol] 39 U/L Normal 15-[address] [facility] Comment on above: Performed By: #### B GLU #### [facility] [address] [place] [address] Bilirubin [Mass/Vol] 1.0 mg/dL Normal 0.2-1.3 [facility] Comment on above: Performed By: #### B GLU #### [facility] [address] [place] [address] CO2 [Moles/Vol] 28 mmol/L Normal 22-30 [facility] Comment on above: Performed By: #### B GLU #### [facility] [address] [place] [address] Glucose [Mass/Vol] 124 mg/dL High 70-[address] [facility] Comment on above: Performed By: #### B GLU #### [facility] [address] [place] [address] Protein [Mass/Vol] 6.1 g/dL Low 6.3-8.[address] [facility] Comment on above: Performed By: #### B GLU #### [facility] [address] [place] [address] Urea nitrogen [Mass/Vol] 20 mg/dL Normal 9-[address] [facility] Comment on above: Performed By: #### B GLU #### [facility] [address] [place] [address] Creatinine [Mass/Vol] 0.98 mg/dL Normal 0.52-1.25 [facility] Comment on above: Performed By: #### B GLU #### [facility] [address] [place] [address] GFR/1.73 sq M.predicted among blacks MDRD (S/P/Bld) [Vol rate/Area] 64.7 mL/min/{1.73_m2} Normal >[address] [facility] Comment on above: Performed By: #### B GLU #### [facility] [address] [place] [address] GFR/1.73 sq M.predicted among non-blacks MDRD (S/P/Bld) [Vol rate/Area] 55.9 mL/min/{1.73_m2} Abnormal >[address] [facility] Comment on above: Result Comment: KDIG O guidelines provide the following GFR categories: Stage GFR(ml/min/1.73 m2) Terms G1 >=90 Normal or high G2 60-89 Mildly decreased* G3a 45-59 Mildly to moderately decreased G3b 30-44 Moderately to severely decreased G4 15-29 Severely decreased G5 <15 Kidney failure *Relative to young adult level. In the absence of evidence of kidney damage, neither GFR category G1 nor G2 fulfill the criteria for CKD. The CKD-EPI equation is validated in individuals 18 years of age and older. Currently the best equation for estimating glomerular filtration rate (GFR) from serum creatinine in children is the Bedside Keller equation. It is less accurate in patients with extremes of muscle mass, restriction of dietary protein, ingestion of creatine, extra-renal metabolism of creatinine, or treatment with medications that affect renal tubular creatinine secretion. Performed By: #### B GLU #### [facility] [address] [place] [id number] Albumin [Mass/Vol] 3.1 g/dL Low 3.5-5.[address] [facility] Comment on above: Performed By: #### B GLU #### [facility] [address] [place] [id number] Chloride [Moles/Vol] 103 mmol/L Normal 98-107 [facility] Comment on above: Performed By: #### B GLU #### [facility] [address] [place] [address] Potassium [Moles/Vol] 4.1 mmol/L Normal 3.5-5.1 [facility] Comment on above: Performed By: #### B GLU #### [facility] [address] [place] [id number] Sodium [Moles/Vol] 136 mmol/L Normal 135-[address] [facility] Comment on above: Performed By: #### B GLU #### [facility] [address] [place] [address] Comprehensive Metabolic Pane l w/ Reflex to MGon 12-22-2021 Albumin [Mass/Vol] 3.1 g/dL Low 3.5 - 5.0 g/dL [facility] ALP (Bld) [Catalytic activity/Vol] 108 U/L 38 - 126 U/L [facility] ALT [Catalytic activity/Vol] 14 U/L 0 - 34 U/L [facility] Comment on above: The ALT test is perf ormed by an updated assay method. Please note that the reference intervals have been changed and are now sex specific. Anion gap [Moles/Vol] 5 mmol/L 3 - 13 mmol/L [facility] AST [Catalytic activity/Vol] 39 U/L 15 - 46 U/L [facility] Bilirubin [Mass/Vol] 1.0 mg/dL 0.2 - 1 .3 mg/dL [facility] Calcium [Mass/Vol] 9.4 mg/dL 8.4 - 10. 4 mg/dL [facility] Chloride [Moles/Vol] 103 mmol/L 98 - 10 7 mmol/L [facility] CO2 [Moles/Vol] 28 mmol/L 22 - 30 mmol/L [facility] Creatinine [Mass/Vol] 0.98 mg/dL 0.52 - 1.25 mg/dL [facility] EGFR IF NonAfrican Mosotho 55.9 mL/min Abnormal >60 [facility] Comment on above: KDIGO guidelines pro vide the following GFR categories: Stage GFR(ml/min/1.73 m2) Terms G1 >=90 Normal or high G2 60-89 Mildly decreased* G3a 45-59 Mildly to moderately decreased G3b 30-44 Moderately to severely decreased G4 15-29 Severely decreased G5 <15 Kidney failure *Relative to young adult level. In the absence of evidence of kidney damage, neither GFR category G1 nor G2 fulfill the criteria for CKD. The CKD-EPI equation is validated in individuals 18 years of age and older. Currently the best equation for estimating glomerular filtration rate (GFR) from serum creatinine in children is the Bedside Keller equation. It is less accurate in patients with extremes of muscle mass, restriction of dietary protein, ingestion of creatine, extra-renal metabolism of creatinine, or treatment with medications that affect renal tubular creatinine secretion. Free PSA/Total PSA [Mass fraction] 6.1 g/dL Low 6.3 - 8.2 g/dL [facility] GFR/1.73 sq M.predicted among blacks MDRD (S/P/Bld) [Vol rate/Area] 64.7 mL/min/{1.73_m2} >60 [facility] Glucose [Mass/Vol] 124 mg/dL High 70 - 100 mg/dL [facility] Interpretation and review of laboratory results Abnormal [facility] Potassium [Moles/Vol] 4.1 mmol/L 3.5 - 5.1 mmol/L [facility] Sodium [Moles/Vol] 136 mmol/L 135 - 145 mmol/L [facility] Urea nitrogen (BldV) [Mass/Vol] 20 mg/dL 9 - 20 mg/dL [facility] Test Performed by [facility], [address] [place], [place] [id number] [place] [address] LAB [facility] Glucose,Bedsideon 12-22-2021 Glucose [Mass/Vol] 117 mg/dL High 70-[address] [facility] Comment on above: Result Comment: Test performed by glucose meter. Results may be 10%-15% lower than serum/plasma values. (CLIA ID [id number]) Performed By: #### B NP3, CMP3, HEMDF #### [facility] [address] [place] [address] Glucose [Mass/Vol] 164 mg/dL High 70-[address] [facility] Comment on above: Result Comment: Test performed by glucose meter. Results may be 10%-15% lower than serum/plasma values. (CLIA ID [id number]) Performed By: #### B GLU #### [facility] [address] [place] [address] Glucose [Mass/Vol] 115 mg/dL High 70-[address] [facility] Comment on above: Result Comment: Test performed by glucose meter. Results may be 10%-15% lower than serum/plasma values. (CLIA ID [id number]) Performed By: #### B GLU #### [facility] [address] [place] [address] POCT Glucoseon 12-22-2021 Glucose [Mass/Vol] 117 mg/dL High 70 - 100 mg/dL [facility] Work Phone: [phone] Comment on above: Test performed by gl ucose meter. Results may be 10%-15% lower than serum/plasma values. (CLIA ID [id number]) Interpretation and review of laboratory results Abnormal [facility] Work Phone: [phone] Test Performed by [facility], [address] LAB [facility] Work Phone: [phone] Test Performed by [facility], [address] LAB Glucose [Mass/Vol] 115 mg/dL High 70 - 100 mg/dL [facility] Work Phone: [phone] Comment on above: Test performed by gl ucose meter. Results may be 10%-15% lower than serum/plasma values. (CLIA ID [id number]) Interpretation and review of laboratory results Abnormal [facility] Work Phone: [phone] Test Performed by [facility], [address] LAB [facility] Work Phone: [phone] POCT GlucoseOrdered By: Johny Biggs on 12-22-2021 Glucose [Mass/Vol] 164 mg/dL High 70 - 100 mg/dL [facility] Work Phone: Comment on above: Test performed by gl ucose meter. Results may be 10%-15% lower than serum/plasma values. (CLIA ID [id number]) Interpretation and review of laboratory results Abnormal [facility] Work Phone: [facility] Work Phone: Comp Panel with Mg Reflexon 12-21-2021 ALP [Catalytic activity/Vol] 102 U/L Normal 38-[address] [facility] Comment on above: Performed By: #### B GLU #### [facility] [address] [place] [address] ALT [Catalytic activity/Vol] 14 U/L Normal 0-[address] [facility] Comment on above: Result Comment: The ALT test is performed by an updated assay method. Please note that the reference intervals have been changed and are now sex specific. Performed By: #### B GLU #### [facility] [address] [place] [address] AST [Catalytic activity/Vol] 40 U/L Normal 15-[address] [facility] Comment on above: Performed By: #### B GLU #### [facility] [address] [place] [address] Calcium [Mass/Vol] 9.4 mg/dL Normal 8.4-10.[address] [facility] Comment on above: Performed By: #### B GLU #### [facility] [address] [place] [address] Glucose [Mass/Vol] 122 mg/dL High 70-[address] [facility] Comment on above: Performed By: #### B GLU #### [facility] [address] [place] [address] Protein [Mass/Vol] 5.8 g/dL Low 6.3-8.[address] [facility] Comment on above: Performed By: #### B GLU #### [facility] [address] [place] [address] Urea nitrogen [Mass/Vol] 22 mg/dL High 9-[address] [facility] Comment on above: Performed By: #### B GLU #### [facility] [address] [place] [address] Anion gap [Moles/Vol] 3 mmol/L Normal 3-13 [facility] Comment on above: Performed By: #### B GLU #### [facility] [address] [place] [address] Bilirubin [Mass/Vol] 0.9 mg/dL Normal 0.2-1.3 [facility] Comment on above: Performed By: #### B GLU #### [facility] [address] [place] [address] CO2 [Moles/Vol] 31 mmol/L High 22-30 [facility] Comment on above: Performed By: #### B GLU #### [facility] [address] [place] [address] Creatinine [Mass/Vol] 1.01 mg/dL Normal 0.52-1.25 [facility] Comment on above: Performed By: #### B GLU #### [facility] [address] [place] [id number] GFR/1.73 sq M.predicted among blacks MDRD (S/P/Bld) [Vol rate/Area] 62.4 mL/min/{1.73_m2} Normal >[address] [facility] Comment on above: Performed By: #### B GLU #### [facility] [address] [place] [address] GFR/1.73 sq M.predicted among non-blacks MDRD (S/P/Bld) [Vol rate/Area] 53.9 mL/min/{1.73_m2} Abnormal >[address] [facility] Comment on above: Result Comment: KDIG O guidelines provide the following GFR categories: Stage GFR(ml/min/1.73 m2) Terms G1 >=90 Normal or high G2 60-89 Mildly decreased* G3a 45-59 Mildly to moderately decreased G3b 30-44 Moderately to severely decreased G4 15-29 Severely decreased G5 <15 Kidney failure *Relative to young adult level. In the absence of evidence of kidney damage, neither GFR category G1 nor G2 fulfill the criteria for CKD. The CKD-EPI equation is validated in individuals 18 years of age and older. Currently the best equation for estimating glomerular filtration rate (GFR) from serum creatinine in children is the Bedside Keller equation. It is less accurate in patients with extremes of muscle mass, restriction of dietary protein, ingestion of creatine, extra-renal metabolism of creatinine, or treatment with medications that affect renal tubular creatinine secretion. Performed By: #### B GLU #### [facility] [address] [place] [id number] Albumin [Mass/Vol] 3.0 g/dL Low 3.5-5.[address] [facility] Comment on above: Performed By: #### B GLU #### [facility] [address] [place] [address] Chloride [Moles/Vol] 103 mmol/L Normal 98-107 [facility] Comment on above: Performed By: #### B GLU #### [facility] [address] [place] [id number] Potassium [Moles/Vol] 3.9 mmol/L Normal 3.5-5.1 [facility] Comment on above: Performed By: #### B GLU #### [facility] [address] [place] [address] Sodium [Moles/Vol] 137 mmol/L Normal 135-[address] [facility] Comment on above: Performed By: #### B GLU #### [facility] [address] [place] [id number] Comprehensive Metabolic Pane l w/ Reflex to MGon 12-21-2021 Albumin [Mass/Vol] 3.0 g/dL Low 3.5 - 5.0 g/dL [facility] ALP (Bld) [Catalytic activity/Vol] 102 U/L 38 - 126 U/L [facility] ALT [Catalytic activity/Vol] 14 U/L 0 - 34 U/L [facility] Comment on above: The ALT test is perf ormed by an updated assay method. Please note that the reference intervals have been changed and are now sex specific. Anion gap [Moles/Vol] 3 mmol/L 3 - 13 mmol/L [facility] AST [Catalytic activity/Vol] 40 U/L 15 - 46 U/L [facility] Bilirubin [Mass/Vol] 0.9 mg/dL 0.2 - 1 .3 mg/dL [facility] Calcium [Mass/Vol] 9.4 mg/dL 8.4 - 10. 4 mg/dL [facility] Chloride [Moles/Vol] 103 mmol/L 98 - 10 7 mmol/L [facility] CO2 [Moles/Vol] 31 mmol/L High 22 - 30 mmol/L [facility] Creatinine [Mass/Vol] 1.01 mg/dL 0.52 - 1.25 mg/dL [facility] EGFR IF NonAfrican [place]otho 53.9 mL/min Abnormal >60 [facility] Comment on above: KDIGO guidelines pro vide the following GFR categories: Stage GFR(ml/min/1.73 m2) Terms G1 >=90 Normal or high G2 60-89 Mildly decreased* G3a 45-59 Mildly to moderately decreased G3b 30-44 Moderately to severely decreased G4 15-29 Severely decreased G5 <15 Kidney failure *Relative to young adult level. In the absence of evidence of kidney damage, neither GFR category G1 nor G2 fulfill the criteria for CKD. The CKD-EPI equation is validated in individuals 18 years of age and older. Currently the best equation for estimating glomerular filtration rate (GFR) from serum creatinine in children is the Bedside Keller equation. It is less accurate in patients with extremes of muscle mass, restriction of dietary protein, ingestion of creatine, extra-renal metabolism of creatinine, or treatment with medications that affect renal tubular creatinine secretion. Free PSA/Total PSA [Mass fraction] 5.8 g/dL Low 6.3 - 8.2 g/dL [facility] GFR/1.73 sq M.predicted among blacks MDRD (S/P/Bld) [Vol rate/Area] 62.4 mL/min/{1.73_m2} >60 [facility] Glucose [Mass/Vol] 122 mg/dL High 70 - 100 mg/dL [facility] Interpretation and review of laboratory results Abnormal [facility] Potassium [Moles/Vol] 3.9 mmol/L 3.5 - 5.1 mmol/L [facility] Sodium [Moles/Vol] 137 mmol/L 135 - 145 mmol/L [facility] Urea nitrogen (BldV) [Mass/Vol] 22 mg/dL High 9 - 20 mg/dL [facility] Test Performed by [facility], [address] [place], [place] [id number] [place] [address] LAB [facility] Glucose,Bedsideon 12-21-2021 Glucose [Mass/Vol] 139 mg/dL High 70-[address] [facility] Comment on above: Result Comment: Test performed by glucose meter. Results may be 10%-15% lower than serum/plasma values. (CLIA ID [id number]) Performed By: #### B NP3, CMP3, HEMDF #### [facility] [address] [place] [address] Glucose [Mass/Vol] 99 mg/dL Normal 70-[address] [facility] Comment on above: Result Comment: Test performed by glucose meter. Results may be 10%-15% lower than serum/plasma values. (CLIA ID [id number]) Performed By: #### B NP3, CMP3, HEMDF #### [facility] [address] [place] [address] Glucose [Mass/Vol] 156 mg/dL High 70-[address] [facility] Comment on above: Result Comment: Test performed by glucose meter. Results may be 10%-15% lower than serum/plasma values. (CLIA ID [id number]) Performed By: #### B GLU #### [facility] [address] [place] [address] Glucose [Mass/Vol] 123 mg/dL High 70-[address] [facility] Comment on above: Result Comment: Test performed by glucose meter. Results may be 10%-15% lower than serum/plasma values. (CLIA ID [id number]) Performed By: #### B GLU #### [facility] [address] [place] [address] POCT Glucoseon 12-21-2021 Glucose [Mass/Vol] 139 mg/dL High 70 - 100 mg/dL [facility] Work Phone: Comment on above: Test performed by gl ucose meter. Results may be 10%-15% lower than serum/plasma values. (CLIA ID [id number]) Interpretation and review of laboratory results Abnormal [facility] Work Phone: Test Performed by [facility], [facility] [address] LAB [facility] Work Phone: Glucose [Mass/Vol] 99 mg/dL 70 - 100 mg/dL [facility] Work Phone: Comment on above: Test performed by gl ucose meter. Results may be 10%-15% lower than serum/plasma values. (CLIA ID [id number]) Test Performed by [facility], [address] LAB [facility] Work Phone: Glucose [Mass/Vol] 156 mg/dL High 70 - 100 mg/dL [facility] Work Phone: Comment on above: Test performed by gl ucose meter. Results may be 10%-15% lower than serum/plasma values. (CLIA ID [id number]) Interpretation and review of laboratory results Abnormal [facility] Work Phone: Test Performed by [facility], [address] LAB [facility] Work Phone: Glucose [Mass/Vol] 123 mg/dL High 70 - 100 mg/dL [facility] Work Phone: Comment on above: Test performed by gl ucose meter. Results may be 10%-15% lower than serum/plasma values. (CLIA ID [id number]) Interpretation and review of laboratory results Abnormal [facility] Work Phone: Test Performed by [facility], [address] [place] [address] [facility] LAB [facility] Work Phone: CULTURE BLOODon 12-20-2021 Microscopic examination of blood, culture CULTURE BLOOD --> Status: F No growth at [address] [facility] Comment on above: Performed By: #### B NP3, CMP3, HEMDF #### [facility] [address] [place] [id number] CULTURE BLOOD (Two)on 2021 Microscopic examination of blood, culture CULTURE BLOOD (Two) --> Status: F No growth at [address] [facility] Comment on above: Performed By: #### B GLU #### [facility] [address] [place] [id number] Comp Panel with Mg Reflexon 12-20-2021 ALP [Catalytic activity/Vol] 88 U/L Normal 38-[address] [facility] Comment on above: Performed By: #### B NP3, CMP3, HEMDF #### [facility] [address] [place] [id number] ALT [Catalytic activity/Vol] 13 U/L Normal 0-[address] [facility] Comment on above: Result Comment: The ALT test is performed by an updated assay method. Please note that the reference intervals have been changed and are now sex specific. Performed By: #### B NP3, CMP3, HEMDF #### [facility] [address] [place] [id number] Anion gap [Moles/Vol] 3 mmol/L Normal 3-13 [facility] Comment on above: Performed By: #### B NP3, CMP3, HEMDF #### [facility] [address] [place] [id number] AST [Catalytic activity/Vol] 85 U/L High 15-[address] [facility] Comment on above: Performed By: #### B NP3, CMP3, HEMDF #### [facility] [address] [place] [address] Bilirubin [Mass/Vol] 1.2 mg/dL Normal 0.2-1.3 [facility] Comment on above: Performed By: #### B NP3, CMP3, HEMDF #### [facility] [address] [place] [address] Calcium [Mass/Vol] 9.3 mg/dL Normal 8.4-10.[address] [facility] Comment on above: Performed By: #### B NP3, CMP3, HEMDF #### [facility] [address] [place] [address] CO2 [Moles/Vol] 33 mmol/L High 22-30 [facility] Comment on above: Performed By: #### B NP3, CMP3, HEMDF #### [facility] [address] [place] [address] Glucose [Mass/Vol] 125 mg/dL High 70-[address] [facility] Comment on above: Performed By: #### B NP3, CMP3, HEMDF #### [facility] [address] [place] [address] Protein [Mass/Vol] 6.0 g/dL Low 6.3-8.[address] [facility] Comment on above: Performed By: #### B NP3, CMP3, HEMDF #### [facility] [address] [place] [address] Urea nitrogen [Mass/Vol] 26 mg/dL High 9-[address] [facility] Comment on above: Performed By: #### B NP3, CMP3, HEMDF #### [facility] [address] [place] [address] Creatinine [Mass/Vol] 1.02 mg/dL Normal 0.52-1.25 [facility] Comment on above: Performed By: #### B NP3, CMP3, HEMDF #### [facility] [address] [place] [address] GFR/1.73 sq M.predicted among blacks MDRD (S/P/Bld) [Vol rate/Area] 61.7 mL/min/{1.73_m2} Normal >[address] [facility] Comment on above: Performed By: #### B NP3, CMP3, HEMDF #### [facility] [address] [place] [id number] GFR/1.73 sq M.predicted among non-blacks MDRD (S/P/Bld) [Vol rate/Area] 53.2 mL/min/{1.73_m2} Abnormal >[address] [facility] Comment on above: Result Comment: KDIG O guidelines provide the following GFR categories: Stage GFR(ml/min/1.73 m2) Terms G1 >=90 Normal or high G2 60-89 Mildly decreased* G3a 45-59 Mildly to moderately decreased G3b 30-44 Moderately to severely decreased G4 15-29 Severely decreased G5 <15 Kidney failure *Relative to young adult level. In the absence of evidence of kidney damage, neither GFR category G1 nor G2 fulfill the criteria for CKD. The CKD-EPI equation is validated in individuals 18 years of age and older. Currently the best equation for estimating glomerular filtration rate (GFR) from serum creatinine in children is the Bedside Keller equation. It is less accurate in patients with extremes of muscle mass, restriction of dietary protein, ingestion of creatine, extra-renal metabolism of creatinine, or treatment with medications that affect renal tubular creatinine secretion. Performed By: #### B NP3, CMP3, HEMDF #### [facility] [address] [place] [id number] Albumin [Mass/Vol] 3.2 g/dL Low 3.5-5.[address] [facility] Comment on above: Performed By: #### B NP3, CMP3, HEMDF #### [facility] [address] [place] [id number] Chloride [Moles/Vol] 101 mmol/L Normal 98-107 [facility] Comment on above: Performed By: #### B NP3, CMP3, HEMDF #### [facility] [address] [place] [id number] Potassium [Moles/Vol] 3.8 mmol/L Normal 3.5-5.1 [facility] Comment on above: Performed By: #### B NP3, CMP3, HEMDF #### [facility] [address] [place] [address] Sodium [Moles/Vol] 136 mmol/L Normal 135-[address] [facility] Comment on above: Performed By: #### B NP3, CMP3, HEMDF #### [facility] [address] [place] [id number] Comprehensive Metabolic Pane l w/ Reflex to MGon 12-20-2021 Albumin [Mass/Vol] 3.2 g/dL Low 3.5 - 5.0 g/dL [facility] ALP (Bld) [Catalytic activity/Vol] 88 U/L 38 - 126 U/L [facility] ALT [Catalytic activity/Vol] 13 U/L 0 - 34 U/L [facility] Comment on above: The ALT test is perf ormed by an updated assay method. Please note that the reference intervals have been changed and are now sex specific. Anion gap [Moles/Vol] 3 mmol/L 3 - 13 mmol/L [facility] AST [Catalytic activity/Vol] 85 U/L High 15 - 46 U/L [facility] Bilirubin [Mass/Vol] 1.2 mg/dL 0.2 - 1 .3 mg/dL [facility] Calcium [Mass/Vol] 9.3 mg/dL 8.4 - 10. 4 mg/dL [facility] Chloride [Moles/Vol] 101 mmol/L 98 - 10 7 mmol/L [facility] CO2 [Moles/Vol] 33 mmol/L High 22 - 30 mmol/L [facility] Creatinine [Mass/Vol] 1.02 mg/dL 0.52 - 1.25 mg/dL [facility] EGFR IF NonAfrican [place]otho 53.2 mL/min Abnormal >60 [facility] Comment on above: KDIGO guidelines pro vide the following GFR categories: Stage GFR(ml/min/1.73 m2) Terms G1 >=90 Normal or high G2 60-89 Mildly decreased* G3a 45-59 Mildly to moderately decreased G3b 30-44 Moderately to severely decreased G4 15-29 Severely decreased G5 <15 Kidney failure *Relative to young adult level. In the absence of evidence of kidney damage, neither GFR category G1 nor G2 fulfill the criteria for CKD. The CKD-EPI equation is validated in individuals 18 years of age and older. Currently the best equation for estimating glomerular filtration rate (GFR) from serum creatinine in children is the Bedside Keller equation. It is less accurate in patients with extremes of muscle mass, restriction of dietary protein, ingestion of creatine, extra-renal metabolism of creatinine, or treatment with medications that affect renal tubular creatinine secretion. Free PSA/Total PSA [Mass fraction] 6.0 g/dL Low 6.3 - 8.2 g/dL [facility] GFR/1.73 sq M.predicted among blacks MDRD (S/P/Bld) [Vol rate/Area] 61.7 mL/min/{1.73_m2} >60 [facility] Glucose [Mass/Vol] 125 mg/dL High 70 - 100 mg/dL [facility] Interpretation and review of laboratory results Abnormal [facility] Potassium [Moles/Vol] 3.8 mmol/L 3.5 - 5.1 mmol/L [facility] Sodium [Moles/Vol] 136 mmol/L 135 - 145 mmol/L [facility] Urea nitrogen (BldV) [Mass/Vol] 26 mg/dL High 9 - 20 mg/dL [facility] Test Performed by [facility], [address] LAB [facility] Glucose,Bedsideon 12-20-2021 Glucose [Mass/Vol] 155 mg/dL High 70-[address] [facility] Comment on above: Result Comment: Test performed by glucose meter. Results may be 10%-15% lower than serum/plasma values. (CLIA ID [id number]) Performed By: #### B NP3, CMP3, HEMDF #### [facility] [address] [place] [address] Glucose [Mass/Vol] 116 mg/dL High 70-[address] [facility] Comment on above: Result Comment: Test performed by glucose meter. Results may be 10%-15% lower than serum/plasma values. (CLIA ID [id number]) Performed By: #### B NP3, CMP3, HEMDF #### [facility] [facility] [address] [place] [address] Glucose [Mass/Vol] 139 mg/dL High 70-[address] [facility] Comment on above: Result Comment: Test performed by glucose meter. Results may be 10%-15% lower than serum/plasma values. (CLIA ID [id number]) Performed By: #### B GLU #### [facility] [address] [place] [address] Glucose [Mass/Vol] 135 mg/dL High 70-[address] [facility] Comment on above: Result Comment: Test performed by glucose meter. Results may be 10%-15% lower than serum/plasma values. (CLIA ID [id number]) Performed By: #### B GLU #### [facility] [address] [place] [address] No Panel Informationon 12-20 Blood Culture, Routine No growth at 5 days. [facility] Test Performed by [facility], [address] [place] [address] [facility] POCT Glucoseon 12-20-2021 Glucose [Mass/Vol] 155 mg/dL High 70 - 100 mg/dL [facility] Work Phone: Comment on above: Test performed by gl ucose meter. Results may be 10%-15% lower than serum/plasma values. (CLIA ID [id number]) Interpretation and review of laboratory results Abnormal [facility] Work Phone: Test Performed by [facility], [address] [place], [place] [id number] [place] [address] LAB [facility] Work Phone: Glucose [Mass/Vol] 116 mg/dL High 70 - 100 mg/dL [facility] Comment on above: Test performed by gl ucose meter. Results may be 10%-15% lower than serum/plasma values. (CLIA ID [id number]) Interpretation and review of laboratory results Abnormal [facility] Test Performed by [facility], [address] [place], [place] [id number] [place] [address] [facility] Glucose [Mass/Vol] 139 mg/dL High 70 - 100 mg/dL [facility] Comment on above: Test performed by gl ucose meter. Results may be 10%-15% lower than serum/plasma values. (CLIA ID [id number]) Interpretation and review of laboratory results Abnormal [facility] Test Performed by [facility], [address] [place], [place] [id number] [place] [address] LAB [facility] Glucose [Mass/Vol] 135 mg/dL High 70 - 100 mg/dL [facility] Work Phone: Comment on above: Test performed by gl ucose meter. Results may be 10%-15% lower than serum/plasma values. (CLIA ID [id number]) Interpretation and review of laboratory results Abnormal [facility] Work Phone: Test Performed by [facility], [address] [place], [place] [id number] [place] [address] LAB [facility] Work Phone: Vancomycinon 12-20-2021 Vancomycin 22.8 ug/mL High 15.0-20.[address] [facility] Comment on above: Result Comment: . Performed By: #### B GLU #### [facility] [address] [place] [address] Vancomycin Level, Randomon 0 12-20-2021 Interpretation and review of laboratory results Abnormal [facility] Vancomycin 22.8 ug/mL High 15.0 - 20.0 ug/mL [facility] Comment on above: . Test Performed by [facility], [address] [place], [place] [id number] [place] [address] [facility] Comp Panel with Mg Reflexon 12-19-2021 ALP [Catalytic activity/Vol] 104 U/L Normal 38-[address] [facility] Comment on above: Performed By: #### B NP3, CMP3, HEMDF #### [facility] [address] [place] [address] ALT [Catalytic activity/Vol] 12 U/L Normal 0-[address] [facility] Comment on above: Result Comment: The ALT test is performed by an updated assay method. Please note that the reference intervals have been changed and are now sex specific. Performed By: #### B NP3, CMP3, HEMDF #### [facility] [address] [place] [address] AST [Catalytic activity/Vol] 49 U/L High 15-[address] [facility] Comment on above: Performed By: #### B NP3, CMP3, HEMDF #### [facility] [address] [place] [address] Calcium [Mass/Vol] 9.1 mg/dL Normal 8.4-10.[address] [facility] Comment on above: Performed By: #### B NP3, CMP3, HEMDF #### [facility] [address] [place] [address] Glucose [Mass/Vol] 117 mg/dL High 70-[address] [facility] Comment on above: Performed By: #### B NP3, CMP3, HEMDF #### [facility] [address] [place] [address] Protein [Mass/Vol] 5.8 g/dL Low 6.3-8.[address] [facility] Comment on above: Performed By: #### B NP3, CMP3, HEMDF #### [facility] [address] [place] [address] Urea nitrogen [Mass/Vol] 26 mg/dL High 9-[address] [facility] Comment on above: Performed By: #### B NP3, CMP3, HEMDF #### [facility] [address] [place] [address] Anion gap [Moles/Vol] 2 mmol/L Low 3-13 [facility] Comment on above: Performed By: #### B NP3, CMP3, HEMDF #### [facility] [address] [place] [address] Bilirubin [Mass/Vol] 1.0 mg/dL Normal 0.2-1.3 [facility] Comment on above: Performed By: #### B NP3, CMP3, HEMDF #### [facility] [address] [place] [address] CO2 [Moles/Vol] 31 mmol/L High 22-30 [facility] Comment on above: Performed By: #### B NP3, CMP3, HEMDF #### [facility] [address] [place] [address] Creatinine [Mass/Vol] 1.13 mg/dL Normal 0.52-1.25 [facility] Comment on above: Performed By: #### B NP3, CMP3, HEMDF #### [facility] [address] [place] [address] GFR/1.73 sq M.predicted among blacks MDRD (S/P/Bld) [Vol rate/Area] 54.5 mL/min/{1.73_m2} Abnormal >[address] [facility] Comment on above: Performed By: #### B NP3, CMP3, HEMDF #### [facility] [address] [place] [id number] GFR/1.73 sq M.predicted among non-blacks MDRD (S/P/Bld) [Vol rate/Area] 47.0 mL/min/{1.73_m2} Abnormal >[address] [facility] Comment on above: Result Comment: KDIG O guidelines provide the following GFR categories: Stage GFR(ml/min/1.73 m2) Terms G1 >=90 Normal or high G2 60-89 Mildly decreased* G3a 45-59 Mildly to moderately decreased G3b 30-44 Moderately to severely decreased G4 15-29 Severely decreased G5 <15 Kidney failure *Relative to young adult level. In the absence of evidence of kidney damage, neither GFR category G1 nor G2 fulfill the criteria for CKD. The CKD-EPI equation is validated in individuals 18 years of age and older. Currently the best equation for estimating glomerular filtration rate (GFR) from serum creatinine in children is the Bedside Keller equation. It is less accurate in patients with extremes of muscle mass, restriction of dietary protein, ingestion of creatine, extra-renal metabolism of creatinine, or treatment with medications that affect renal tubular creatinine secretion. Performed By: #### B NP3, CMP3, HEMDF #### [facility] [address] [place] [id number] Albumin [Mass/Vol] 2.9 g/dL Low 3.5-5.[address] [facility] Comment on above: Performed By: #### B NP3, CMP3, HEMDF #### [facility] [address] [place] [id number] Chloride [Moles/Vol] 101 mmol/L Normal 98-107 [facility] Comment on above: Performed By: #### B NP3, CMP3, HEMDF #### [facility] [address] [place] [id number] Potassium [Moles/Vol] 3.7 mmol/L Normal 3.5-5.1 [facility] Comment on above: Performed By: #### B NP3, CMP3, HEMDF #### [facility] [address] [place] [address] Sodium [Moles/Vol] 133 mmol/L Low 135-[address] [facility] Comment on above: Performed By: #### B NP3, CMP3, HEMDF #### [facility] [address] [place] [id number] Comprehensive Metabolic Pane l w/ Reflex to MGon 12-19-2021 Albumin [Mass/Vol] 2.9 g/dL Low 3.5 - 5.0 g/dL [facility] ALP (Bld) [Catalytic activity/Vol] 104 U/L 38 - 126 U/L [facility] ALT [Catalytic activity/Vol] 12 U/L 0 - 34 U/L [facility] Comment on above: The ALT test is perf ormed by an updated assay method. Please note that the reference intervals have been changed and are now sex specific. Anion gap [Moles/Vol] 2 mmol/L Low 3 - 13 mmol/L [facility] AST [Catalytic activity/Vol] 49 U/L High 15 - 46 U/L [facility] Bilirubin [Mass/Vol] 1.0 mg/dL 0.2 - 1 .3 mg/dL [facility] Calcium [Mass/Vol] 9.1 mg/dL 8.4 - 10. 4 mg/dL [facility] Chloride [Moles/Vol] 101 mmol/L 98 - 10 7 mmol/L [facility] CO2 [Moles/Vol] 31 mmol/L High 22 - 30 mmol/L [facility] Creatinine [Mass/Vol] 1.13 mg/dL 0.52 - 1.25 mg/dL [facility] EGFR IF NonAfrican Mosotho 47.0 mL/min Abnormal >60 [facility] Comment on above: KDIGO guidelines pro vide the following GFR categories: Stage GFR(ml/min/1.73 m2) Terms G1 >=90 Normal or high G2 60-89 Mildly decreased* G3a 45-59 Mildly to moderately decreased G3b 30-44 Moderately to severely decreased G4 15-29 Severely decreased G5 <15 Kidney failure *Relative to young adult level. In the absence of evidence of kidney damage, neither GFR category G1 nor G2 fulfill the criteria for CKD. The CKD-EPI equation is validated in individuals 18 years of age and older. Currently the best equation for estimating glomerular filtration rate (GFR) from serum creatinine in children is the Bedside Keller equation. It is less accurate in patients with extremes of muscle mass, restriction of dietary protein, ingestion of creatine, extra-renal metabolism of creatinine, or treatment with medications that affect renal tubular creatinine secretion. Free PSA/Total PSA [Mass fraction] 5.8 g/dL Low 6.3 - 8.2 g/dL [facility] GFR/1.73 sq M.predicted among blacks MDRD (S/P/Bld) [Vol rate/Area] 54.5 mL/min/{1.73_m2} Abnormal >60 [facility] Glucose [Mass/Vol] 117 mg/dL High 70 - 100 mg/dL [facility] Interpretation and review of laboratory results Abnormal [facility] Potassium [Moles/Vol] 3.7 mmol/L 3.5 - 5.1 mmol/L [facility] Sodium [Moles/Vol] 133 mmol/L Low 135 - 145 mmol/L [facility] Urea nitrogen (BldV) [Mass/Vol] 26 mg/dL High 9 - 20 mg/dL [facility] Test Performed by [facility], [address] [place], [place] [id number] [place] [address] LAB [facility] Glucose,Bedsideon 12-19-2021 Glucose [Mass/Vol] 186 mg/dL High 70-[address] [facility] Comment on above: Result Comment: Test performed by glucose meter. Results may be 10%-15% lower than serum/plasma values. (CLIA ID [id number]) Performed By: #### B NP3, CMP3, HEMDF #### [facility] [address] [place] [address] Glucose [Mass/Vol] 148 mg/dL High 70-[address] [facility] Comment on above: Result Comment: Test performed by glucose meter. Results may be 10%-15% lower than serum/plasma values. (CLIA ID [id number]) Performed By: #### B NP3, CMP3, HEMDF #### [facility] [address] [place] [address] Glucose [Mass/Vol] 124 mg/dL High 70-[address] [facility] Comment on above: Result Comment: Test performed by glucose meter. Results may be 10%-15% lower than serum/plasma values. (CLIA ID [id number]) Performed By: #### B GLU #### [facility] [address] [place] [address] Glucose [Mass/Vol] 120 mg/dL High 70-[address] [facility] Comment on above: Result Comment: Test performed by glucose meter. Results may be 10%-15% lower than serum/plasma values. (CLIA ID [id number]) Performed By: #### B GLU #### [facility] [address] [place] [id number] POCT GlucoseOrdered By: Kings Cancino on 12-19-2021 Glucose [Mass/Vol] 186 mg/dL High 70 - 100 mg/dL [facility] Comment on above: Test performed by gl ucose meter. Results may be 10%-15% lower than serum/plasma values. (CLIA ID [id number]) Interpretation and review of laboratory results Abnormal [facility] POCT Glucoseon 12-19-2021 Test Performed by [facility], [address] LAB Glucose [Mass/Vol] 148 mg/dL High 70 - 100 mg/dL [facility] Comment on above: Test performed by gl ucose meter. Results may be 10%-15% lower than serum/plasma values. (CLIA ID [id number]) Interpretation and review of laboratory results Abnormal [facility] Test Performed by [facility], [address] LAB [facility] Glucose [Mass/Vol] 124 mg/dL High 70 - 100 mg/dL [facility] Comment on above: Test performed by gl ucose meter. Results may be 10%-15% lower than serum/plasma values. (CLIA ID [id number]) Interpretation and review of laboratory results Abnormal [facility] Test Performed by [facility], [address] LAB [facility] Glucose [Mass/Vol] 120 mg/dL High 70 - 100 mg/dL [facility] Comment on above: Test performed by gl ucose meter. Results may be 10%-15% lower than serum/plasma values. (CLIA ID [id number]) Interpretation and review of laboratory results Abnormal [facility] Test Performed by [facility], [address] [place], [place] [id number] [place] [address] LAB [facility] Vancomycin Level, Troughon 0 12-19-2021 Interpretation and review of laboratory results Abnormal [facility] Vancomycin Tr 27 ug/mL High 15.0 - 20.0 ug/mL [facility] Comment on above: . Test Performed by [facility], [address] [place], [place] [id number] [place] [address] LAB [facility] Vancomycin Troughon 12-20-19 22 Vancomycin Trough 27.0 ug/mL High 15.0-20.0 [facility] Comment on above: Result Comment: . Performed By: #### B NP3, CMP3, HEMDF #### [facility] [address] [place] [address] Brain Natriuretic Peptideon 12-18-2021 Natriuretic peptide B (Bld) [Mass/Vol] 7432 pg/mL High 0 - 450 pg/mL [facility] CBC with Auto Differentialon 12-18-2021 Absolute Baso # 0.1 10*3/uL 0.0 - 0.2 10*3/uL [facility] Absolute Neut # 3.8 10*3/uL 1.8 - 7.0 10*3/uL [facility] Hemoglobin.gastrointestin al spec 1 Ql (Stl) 10.4 g/dL Low 11.7 - 16.0 g/dL [facility] MCHC (RBC) [Mass/Vol] 33.8 % 32.0 - 36.0 % [facility] Platelet distribution width (Bld) [Ratio] 13.0 % 11.5 - 14.5 % [facility] Comp Metabolic Panelon 12-18 ALT [Catalytic activity/Vol] 11 U/L Normal 0-[address] [facility] Comment on above: Result Comment: The ALT test is performed by an updated assay method. Please note that the reference intervals have been changed and are now sex specific. Performed By: #### B NP3, CMP3, HEMDF #### [facility] [address] [place] [address] Calcium [Mass/Vol] 9.1 mg/dL Normal 8.4-10.[address] [facility] Comment on above: Performed By: #### B NP3, CMP3, HEMDF #### [facility] [address] [place] [address] Glucose [Mass/Vol] 121 mg/dL High 70-[address] [facility] Comment on above: Performed By: #### B NP3, CMP3, HEMDF #### [facility] [address] [place] [address] Urea nitrogen [Mass/Vol] 24 mg/dL High 9-[address] [facility] Comment on above: Performed By: #### B NP3, CMP3, HEMDF #### [facility] [address] [place] [address] ALP [Catalytic activity/Vol] 98 U/L Normal 38-[address] [facility] Comment on above: Performed By: #### B NP3, CMP3, HEMDF #### [facility] [address] [place] [address] Anion gap [Moles/Vol] 1 mmol/L Low 3-13 [facility] Comment on above: Performed By: #### B NP3, CMP3, HEMDF #### [facility] [address] [place] [address] AST [Catalytic activity/Vol] 53 U/L High 15-[address] [facility] Comment on above: Performed By: #### B NP3, CMP3, HEMDF #### [facility] [address] [place] [address] Bilirubin [Mass/Vol] 0.9 mg/dL Normal 0.2-1.3 [facility] Comment on above: Performed By: #### B NP3, CMP3, HEMDF #### [facility] [address] [place] [address] CO2 [Moles/Vol] 30 mmol/L Normal 22-30 [facility] Comment on above: Performed By: #### B NP3, CMP3, HEMDF #### [facility] [address] [place] [address] Creatinine [Mass/Vol] 1.01 mg/dL Normal 0.52-1.25 [facility] Comment on above: Performed By: #### B NP3, CMP3, HEMDF #### [facility] [address] [place] [address] GFR/1.73 sq M.predicted among blacks MDRD (S/P/Bld) [Vol rate/Area] 62.4 mL/min/{1.73_m2} Normal >[address] [facility] Comment on above: Performed By: #### B NP3, CMP3, HEMDF #### [facility] [address] [place] [address] GFR/1.73 sq M.predicted among non-blacks MDRD (S/P/Bld) [Vol rate/Area] 53.9 mL/min/{1.73_m2} Abnormal >[address] [facility] Comment on above: Result Comment: KDIG O guidelines provide the following GFR categories: Stage GFR(ml/min/1.73 m2) Terms G1 >=90 Normal or high G2 60-89 Mildly decreased* G3a 45-59 Mildly to moderately decreased G3b 30-44 Moderately to severely decreased G4 15-29 Severely decreased G5 <15 Kidney failure *Relative to young adult level. In the absence of evidence of kidney damage, neither GFR category G1 nor G2 fulfill the criteria for CKD. The CKD-EPI equation is validated in individuals 18 years of age and older. Currently the best equation for estimating glomerular filtration rate (GFR) from serum creatinine in children is the Bedside Keller equation. It is less accurate in patients with extremes of muscle mass, restriction of dietary protein, ingestion of creatine, extra-renal metabolism of creatinine, or treatment with medications that affect renal tubular creatinine secretion. Performed By: #### B NP3, CMP3, HEMDF #### [facility] [address] [place] [address] Protein [Mass/Vol] 6.1 g/dL Low 6.3-8.[address] [facility] Comment on above: Performed By: #### B NP3, CMP3, HEMDF #### [facility] [address] [place] [address] Potassium [Moles/Vol] 3.7 mmol/L Normal 3.5-5.1 [facility] Comment on above: Performed By: #### B NP3, CMP3, HEMDF #### [facility] [address] [place] [address] Sodium [Moles/Vol] 134 mmol/L Low 135-[address] [facility] Comment on above: Performed By: #### B NP3, CMP3, HEMDF #### [facility] [address] [place] [id number] Albumin [Mass/Vol] 3.0 g/dL Low 3.5-5.[address] [facility] Comment on above: Performed By: #### B NP3, CMP3, HEMDF #### [facility] [address] [place] [id number] Chloride [Moles/Vol] 104 mmol/L Normal 98-107 [facility] Comment on above: Performed By: #### B NP3, CMP3, HEMDF #### [facility] [address] [place] [id number] Comprehensive Metabolic Pane smith 12-18-2021 Albumin [Mass/Vol] 3.0 g/dL Low 3.5 - 5.0 g/dL [facility] ALP (Bld) [Catalytic activity/Vol] 98 U/L 38 - 126 U/L [facility] ALT [Catalytic activity/Vol] 11 U/L 0 - 34 U/L [facility] Comment on above: The ALT test is perf ormed by an updated assay method. Please note that the reference intervals have been changed and are now sex specific. Anion gap [Moles/Vol] 1 mmol/L Low 3 - 13 mmol/L [facility] AST [Catalytic activity/Vol] 53 U/L High 15 - 46 U/L [facility] Bilirubin [Mass/Vol] 0.9 mg/dL 0.2 - 1 .3 mg/dL [facility] Calcium [Mass/Vol] 9.1 mg/dL 8.4 - 10. 4 mg/dL [facility] Chloride [Moles/Vol] 104 mmol/L 98 - 10 7 mmol/L [facility] CO2 [Moles/Vol] 30 mmol/L 22 - 30 mmol/L [facility] Creatinine [Mass/Vol] 1.01 mg/dL 0.52 - 1.25 mg/dL [facility] EGFR IF NonAfrican Mosotho 53.9 mL/min Abnormal >60 [facility] Comment on above: KDIGO guidelines pro vide the following GFR categories: Stage GFR(ml/min/1.73 m2) Terms G1 >=90 Normal or high G2 60-89 Mildly decreased* G3a 45-59 Mildly to moderately decreased G3b 30-44 Moderately to severely decreased G4 15-29 Severely decreased G5 <15 Kidney failure *Relative to young adult level. In the absence of evidence of kidney damage, neither GFR category G1 nor G2 fulfill the criteria for CKD. The CKD-EPI equation is validated in individuals 18 years of age and older. Currently the best equation for estimating glomerular filtration rate (GFR) from serum creatinine in children is the Bedside Keller equation. It is less accurate in patients with extremes of muscle mass, restriction of dietary protein, ingestion of creatine, extra-renal metabolism of creatinine, or treatment with medications that affect renal tubular creatinine secretion. Free PSA/Total PSA [Mass fraction] 6.1 g/dL Low 6.3 - 8.2 g/dL [facility] GFR/1.73 sq M.predicted among blacks MDRD (S/P/Bld) [Vol rate/Area] 62.4 mL/min/{1.73_m2} >60 [facility] Glucose [Mass/Vol] 121 mg/dL High 70 - 100 mg/dL [facility] Potassium [Moles/Vol] 3.7 mmol/L 3.5 - 5.1 mmol/L [facility] Sodium [Moles/Vol] 134 mmol/L Low 135 - 145 mmol/L [facility] Urea nitrogen (BldV) [Mass/Vol] 24 mg/dL High 9 - 20 mg/dL [facility] Glucose,Bedsideon 12-18-2021 Glucose [Mass/Vol] 155 mg/dL High 70-[address] [facility] Comment on above: Result Comment: Test performed by glucose meter. Results may be 10%-15% lower than serum/plasma values. (CLIA ID [id number]) Performed By: #### B NP3, CMP3, HEMDF #### [facility] [address] [place] [address] Glucose [Mass/Vol] 122 mg/dL High 70-[address] [facility] Comment on above: Result Comment: Test performed by glucose meter. Results may be 10%-15% lower than serum/plasma values. (CLIA ID [id number]) Performed By: #### B GLU #### [facility] [address] [place] [address] Glucose [Mass/Vol] 168 mg/dL High 70-[address] [facility] Comment on above: Result Comment: Test performed by glucose meter. Results may be 10%-15% lower than serum/plasma values. (CLIA ID [id number]) Performed By: #### B GLU #### [facility] [address] [place] [address] Glucose [Mass/Vol] 124 mg/dL High 70-[address] [facility] Comment on above: Result Comment: Test performed by glucose meter. Results may be 10%-15% lower than serum/plasma values. (CLIA ID [id number]) Performed By: #### B GLU #### [facility] [address] [place] [address] Hemogram w/ Autodiffon 12-18 Abs Baso Cnt 0.1 10*3/uL Normal 0.0-0.2 [facility] Comment on above: Performed By: #### B NP3, CMP3, HEMDF #### [facility] [address] [place] [address] Abs Neutrophile Cnt 3.8 10*3/uL Normal 1.8-7.0 [facility] Comment on above: Performed By: #### B NP3, CMP3, HEMDF #### [facility] [address] [place] [address] Basophils/100 WBC (Bld) 0.8 % Normal 0.0-2.0 [facility] Comment on above: Performed By: #### B NP3, CMP3, HEMDF #### [facility] [address] [place] [address] Eosinophils (Bld) [#/Vol] 0.3 10*3/uL Normal 0.0-0.5 [facility] Comment on above: Performed By: #### B NP3, CMP3, HEMDF #### [facility] [address] [place] [address] Eosinophils/100 WBC (Bld) 5.2 % Normal 1.0-6.0 [facility] Comment on above: Performed By: #### B NP3, CMP3, HEMDF #### [facility] [address] [place] [address] Erythrocyte distribution width (RBC) [Ratio] 13.0 % Normal 11.5-14.[address] [facility] Comment on above: Performed By: #### B NP3, CMP3, HEMDF #### [facility] [address] [place] [id number] Granulocytes/100 WBC (Bld) 61.3 % Normal 40.0-80.0 [facility] Comment on above: Performed By: #### B NP3, CMP3, HEMDF #### [facility] [address] [place] [id number] Hematocrit (Bld) [Volume fraction] 30.8 % Low 35.0-47.0 [facility] Comment on above: Performed By: #### B NP3, CMP3, HEMDF #### [facility] [address] [place] [id number] Hemoglobin (Bld) [Mass/Vol] 10.4 g/dL Low 11.7-16.[address] [facility] Comment on above: Performed By: #### B NP3, CMP3, HEMDF #### [facility] [address] [place] [id number] Lymphocytes (Bld) [#/Vol] 1.1 10*3/uL Normal 1.0-4.3 [facility] Comment on above: Performed By: #### B NP3, CMP3, HEMDF #### [facility] [address] [place] [id number] Lymphocytes/100 WBC (Bld) 16.8 % Low 20.0-40.0 [facility] Comment on above: Performed By: #### B NP3, CMP3, HEMDF #### [facility] [address] [place] [id number] MCH (RBC) [Entitic mass] 32.8 pg Normal 26.0-34.0 [facility] Comment on above: Performed By: #### B NP3, CMP3, HEMDF #### [facility] [address] [place] [id number] MCHC 33.8 % Normal 32.0-36.[address] [facility] Comment on above: Performed By: #### B NP3, CMP3, HEMDF #### [facility] [address] [place] [id number] MCV (RBC) [Entitic vol] 97.1 fL Normal 79.0-98.0 [facility] Comment on above: Performed By: #### B NP3, CMP3, HEMDF #### [facility] [address] [place] [address] Monocytes (Bld) [#/Vol] 1.0 10*3/uL High 0.0-0.8 [facility] Comment on above: Performed By: #### B NP3, CMP3, HEMDF #### [facility] [address] [place] [id number] Monocytes/100 WBC (Bld) 15.9 % High 2.0-10.0 [facility] Comment on above: Performed By: #### B NP3, CMP3, HEMDF #### [facility] [address] [place] [id number] Platelet mean volume (Bld) [Entitic vol] 9.9 fL Normal 7.4-12.4 [facility] Comment on above: MPV is a calculated measurement using platelet volume ratio. Result Comment: MPV is a calculated measurement using platelet volume ratio. Performed By: #### B NP3, CMP3, HEMDF #### [facility] [address] [place] [id number] Platelets (Bld) [#/Vol] 108 10*3/uL Low 140-440 [facility] Comment on above: Performed By: #### B NP3, CMP3, HEMDF #### [facility] [address] [place] [id number] RBC (Bld) [#/Vol] 3.17 10*6/uL Low 3.80-5.20 [facility] Comment on above: Performed By: #### B NP3, CMP3, HEMDF #### [facility] [address] [place] [address] WBC (Bld) [#/Vol] 6.3 10*3/uL Normal 3.6-10.7 [facility] Comment on above: Performed By: #### B NP3, CMP3, HEMDF #### [facility] [address] [place] [id number] NT pro BNPon 05-13-2022 Natriuretic peptide B (Bld) [Mass/Vol] 7432 pg/mL High 0-[address] [facility] Comment on above: Performed By: #### B NP3, CMP3, HEMDF #### [facility] [address] [place] [address] No Panel Informationon 12-18 Interpretation and review of laboratory results Abnormal [facility] Test Performed by [facility], [address] LAB [facility] POCT GlucoseOrdered By: Geovani Figueroa on 12-18-2021 Glucose [Mass/Vol] 155 mg/dL High 70 - 100 mg/dL [facility] Work Phone: Comment on above: Test performed by gl ucose meter. Results may be 10%-15% lower than serum/plasma values. (CLIA ID [id number]) Interpretation and review of laboratory results Abnormal [facility] Work Phone: [facility] Work Phone: POCT Glucoseon 12-18-2021 Test Performed by [facility], [address] LAB Glucose [Mass/Vol] 122 mg/dL High 70 - 100 mg/dL [facility] Work Phone: Comment on above: Test performed by gl ucose meter. Results may be 10%-15% lower than serum/plasma values. (CLIA ID [id number]) Interpretation and review of laboratory results Abnormal [facility] Work Phone: Test Performed by [facility], [address] LAB [facility] Work Phone: Test Performed by [facility], [address] LAB Glucose [Mass/Vol] 124 mg/dL High 70 - 100 mg/dL [facility] Work Phone: Comment on above: Test performed by gl ucose meter. Results may be 10%-15% lower than serum/plasma values. (CLIA ID [id number]) Interpretation and review of laboratory results Abnormal [facility] Work Phone: Test Performed by [facility], [address], [place], [place] [address] [facility] LAB [facility] Work Phone: POCT GlucoseOrdered By: Mikhail Levine on 12-18-2021 Glucose [Mass/Vol] 168 mg/dL High 70 - 100 mg/dL [facility] Work Phone: Comment on above: Test performed by gl ucose meter. Results may be 10%-15% lower than serum/plasma values. (CLIA ID [id number]) Interpretation and review of laboratory results Abnormal [facility] Work Phone: [facility] Work Phone: CR Chest PA/LATon 12-17-2021 CR Chest PA/LAT Patient Name: MIKEL WINSTON Diagnostic Radiology ACCESSION EXAM DATE/TIME PROCEDURE ORDERING PROVIDER [id number] 12/17/2021 16:43 EDT CR Chest PA and LAT YULYVÍCTOR ARIEL CPT code 72473 Reason For Exam (CR Chest PA and LAT) sob/hypoxia Report Examination: PA And Lateral Chest. Comparison: 12/14/2021. Reason For Study: Shortness of breath/hypoxia. Support Devices: None. Findings/Interpretat ion: 1. Pulmonary vascular and interstitial markings are prominent and ill-defined consistent with interstitial edema. 2. Right posterior sulcus is blunted and suggests small pleural effusion. 3. Cardiac silhouette is normal in size. Report Dictated on Final Dictating Physician: MD BERGER B NELSON Signed Date and Time: 12/17/2021 6:56 pm Signed by: MD BERGER B NELSON Transcribed Date and Time: 12/17/2021 6:57 Normal [facility] Comp Panel with Mg Reflexon 12-17-2021 ALP [Catalytic activity/Vol] 101 U/L Normal 38-[address] [facility] Comment on above: Performed By: #### B GLU #### [facility] [address] [place] [address] ALT [Catalytic activity/Vol] 12 U/L Normal 0-[address] [facility] Comment on above: Result Comment: The ALT test is performed by an updated assay method. Please note that the reference intervals have been changed and are now sex specific. Performed By: #### B GLU #### [facility] [address] [place] [address] AST [Catalytic activity/Vol] 42 U/L Normal 15-[address] [facility] Comment on above: Performed By: #### B GLU #### [facility] [address] [place] [address] Calcium [Mass/Vol] 8.9 mg/dL Normal 8.4-10.[address] [facility] Comment on above: Performed By: #### B GLU #### [facility] [address] [place] [address] Glucose [Mass/Vol] 157 mg/dL High 70-[address] [facility] Comment on above: Performed By: #### B GLU #### [facility] [address] [place] [address] Protein [Mass/Vol] 5.7 g/dL Low 6.3-8.[address] [facility] Comment on above: Performed By: #### B GLU #### [facility] [address] [place] [address] Urea nitrogen [Mass/Vol] 28 mg/dL High 9-[address] [facility] Comment on above: Performed By: #### B GLU #### [facility] [address] [place] [address] Anion gap [Moles/Vol] 3 mmol/L Normal 3-13 [facility] Comment on above: Performed By: #### B GLU #### [facility] [address] [place] [address] Bilirubin [Mass/Vol] 0.8 mg/dL Normal 0.2-1.3 [facility] Comment on above: Performed By: #### B GLU #### [facility] [address] [place] [address] CO2 [Moles/Vol] 28 mmol/L Normal 22-30 [facility] Comment on above: Performed By: #### B GLU #### [facility] [address] [place] [id number] Creatinine [Mass/Vol] 1.06 mg/dL Normal 0.52-1.25 [facility] Comment on above: Performed By: #### B GLU #### [facility] [address] [place] [id number] GFR/1.73 sq M.predicted among blacks MDRD (S/P/Bld) [Vol rate/Area] 58.9 mL/min/{1.73_m2} Abnormal >[address] [facility] Comment on above: Performed By: #### B GLU #### [facility] [address] [place] [id number] GFR/1.73 sq M.predicted among non-blacks MDRD (S/P/Bld) [Vol rate/Area] 50.8 mL/min/{1.73_m2} Abnormal >[address] [facility] Comment on above: Result Comment: KDIG O guidelines provide the following GFR categories: Stage GFR(ml/min/1.73 m2) Terms G1 >=90 Normal or high G2 60-89 Mildly decreased* G3a 45-59 Mildly to moderately decreased G3b 30-44 Moderately to severely decreased G4 15-29 Severely decreased G5 <15 Kidney failure *Relative to young adult level. In the absence of evidence of kidney damage, neither GFR category G1 nor G2 fulfill the criteria for CKD. The CKD-EPI equation is validated in individuals 18 years of age and older. Currently the best equation for estimating glomerular filtration rate (GFR) from serum creatinine in children is the Bedside Keller equation. It is less accurate in patients with extremes of muscle mass, restriction of dietary protein, ingestion of creatine, extra-renal metabolism of creatinine, or treatment with medications that affect renal tubular creatinine secretion. Performed By: #### B GLU #### [facility] [address] [place] [id number] Albumin [Mass/Vol] 2.9 g/dL Low 3.5-5.[address] [facility] Comment on above: Performed By: #### B GLU #### [facility] [address] [place] [id number] Chloride [Moles/Vol] 105 mmol/L Normal 98-107 [facility] Comment on above: Performed By: #### B GLU #### [facility] [address] [place] [address] Potassium [Moles/Vol] 3.4 mmol/L Low 3.5-5.1 [facility] Comment on above: Performed By: #### B GLU #### [facility] [address] [place] [id number] Sodium [Moles/Vol] 137 mmol/L Normal 135-[address] [facility] Comment on above: Performed By: #### B GLU #### [facility] [address] [place] [id number] Comprehensive Metabolic Pane l w/ Reflex to MGon 12-17-2021 Albumin [Mass/Vol] 2.9 g/dL Low 3.5 - 5.0 g/dL [facility] ALP (Bld) [Catalytic activity/Vol] 101 U/L 38 - 126 U/L [facility] ALT [Catalytic activity/Vol] 12 U/L 0 - 34 U/L [facility] Comment on above: The ALT test is perf ormed by an updated assay method. Please note that the reference intervals have been changed and are now sex specific. Anion gap [Moles/Vol] 3 mmol/L 3 - 13 mmol/L [facility] AST [Catalytic activity/Vol] 42 U/L 15 - 46 U/L [facility] Bilirubin [Mass/Vol] 0.8 mg/dL 0.2 - 1 .3 mg/dL [facility] Calcium [Mass/Vol] 8.9 mg/dL 8.4 - 10. 4 mg/dL [facility] Chloride [Moles/Vol] 105 mmol/L 98 - 10 7 mmol/L [facility] CO2 [Moles/Vol] 28 mmol/L 22 - 30 mmol/L [facility] Creatinine [Mass/Vol] 1.06 mg/dL 0.52 - 1.25 mg/dL [facility] EGFR IF NonAfrican Mosotho 50.8 mL/min Abnormal >60 [facility] Comment on above: KDIGO guidelines pro vide the following GFR categories: Stage GFR(ml/min/1.73 m2) Terms G1 >=90 Normal or high G2 60-89 Mildly decreased* G3a 45-59 Mildly to moderately decreased G3b 30-44 Moderately to severely decreased G4 15-29 Severely decreased G5 <15 Kidney failure *Relative to young adult level. In the absence of evidence of kidney damage, neither GFR category G1 nor G2 fulfill the criteria for CKD. The CKD-EPI equation is validated in individuals 18 years of age and older. Currently the best equation for estimating glomerular filtration rate (GFR) from serum creatinine in children is the Bedside Keller equation. It is less accurate in patients with extremes of muscle mass, restriction of dietary protein, ingestion of creatine, extra-renal metabolism of creatinine, or treatment with medications that affect renal tubular creatinine secretion. Free PSA/Total PSA [Mass fraction] 5.7 g/dL Low 6.3 - 8.2 g/dL [facility] GFR/1.73 sq M.predicted among blacks MDRD (S/P/Bld) [Vol rate/Area] 58.9 mL/min/{1.73_m2} Abnormal >60 [facility] Glucose [Mass/Vol] 157 mg/dL High 70 - 100 mg/dL [facility] Interpretation and review of laboratory results Abnormal [facility] Potassium [Moles/Vol] 3.4 mmol/L Low 3.5 - 5.1 mmol/L [facility] Sodium [Moles/Vol] 137 mmol/L 135 - 145 mmol/L [facility] Urea nitrogen (BldV) [Mass/Vol] 28 mg/dL High 9 - 20 mg/dL [facility] Test Performed by [facility], [address] [place], [place] [address] [facility] Glucose,Bedsideon 12-17-2021 Glucose [Mass/Vol] 170 mg/dL High 70-[address] [facility] Comment on above: Result Comment: Test performed by glucose meter. Results may be 10%-15% lower than serum/plasma values. (CLIA ID [id number]) Performed By: #### B NP3, CMP3, HEMDF #### [facility] [address] [place] [address] Glucose [Mass/Vol] 128 mg/dL High 70-[address] [facility] Comment on above: Result Comment: Test performed by glucose meter. Results may be 10%-15% lower than serum/plasma values. (CLIA ID [id number]) Performed By: #### B GLU #### [facility] [address] [place] [address] Glucose [Mass/Vol] 149 mg/dL High 70-[address] [facility] Comment on above: Result Comment: Test performed by glucose meter. Results may be 10%-15% lower than serum/plasma values. (CLIA ID [id number]) Performed By: #### B NP3, CMP3, HEMDF #### [facility] [address] [place] [address] Glucose [Mass/Vol] 159 mg/dL High 70-[address] [facility] Comment on above: Result Comment: Test performed by glucose meter. Results may be 10%-15% lower than serum/plasma values. (CLIA ID [id number]) Performed By: #### B GLU #### [facility] [address] [place] [address] Magnesiumon 12-17-2021 Magnesium [Mass/Vol] 1.5 mg/dL Low 1.6-2.3 [facility] Comment on above: Performed By: #### B GLU #### [facility] [address] [place] [address] Interpretation and review of laboratory results Abnormal [facility] Magnesium [Mass/Vol] 1.5 mg/dL Low 1.6 - 2 .3 mg/dL [facility] Test Performed by [facility], [facility] [address] LAB [facility] POCT Glucoseon 12-17-2021 Glucose [Mass/Vol] 170 mg/dL High 70 - 100 mg/dL [facility] Work Phone: Comment on above: Test performed by gl ucose meter. Results may be 10%-15% lower than serum/plasma values. (CLIA ID [id number]) Interpretation and review of laboratory results Abnormal [facility] Work Phone: Test Performed by [facility], [facility] [address] LAB [facility] Work Phone: Test Performed by [facility], [address] [place], [place] [id number] [place] [address] LAB Glucose [Mass/Vol] 149 mg/dL High 70 - 100 mg/dL [facility] Work Phone: Comment on above: Test performed by gl ucose meter. Results may be 10%-15% lower than serum/plasma values. (CLIA ID [id number]) Interpretation and review of laboratory results Abnormal [facility] Work Phone: Test Performed by [facility], [address] LAB [facility] Work Phone: [phone] Glucose [Mass/Vol] 159 mg/dL High 70 - 100 mg/dL [facility] Work Phone: [phone] Comment on above: Test performed by gl ucose meter. Results may be 10%-15% lower than serum/plasma values. (CLIA ID [id number]) Interpretation and review of laboratory results Abnormal [facility] Work Phone: [phone] Test Performed by [facility], [address] LAB [facility] Work Phone: POCT GlucoseOrdered By: Jenny Velásquez on 12-17-2021 Glucose [Mass/Vol] 128 mg/dL High 70 - 100 mg/dL [facility] Work Phone: Comment on above: Test performed by gl ucose meter. Results may be 10%-15% lower than serum/plasma values. (CLIA ID [id number]) Interpretation and review of laboratory results Abnormal [facility] Work Phone: [facility] Work Phone: Vancomycin Level, Troughon 0 12-17-2021 Interpretation and review of laboratory results Abnormal [facility] Vancomycin Tr 11.4 ug/mL Low 15.0 - 20.0 ug/mL [facility] Comment on above: . Test Performed by [facility], [address] LAB [facility] Vancomycin Troughon 12-18-19 Vancomycin Trough 11.4 ug/mL Low 15.0-20.0 [facility] Comment on above: Result Comment: . Performed By: #### B NP3, CMP3, HEMDF #### [facility] [address] [place] [address] XR CHEST (2 VW)on 12-17-2021 Patient Name: MIKEL WINSTON Diagnostic Radiology ACCESSION EXAM DATE/TIME PROCEDURE ORDERING PROVIDER [id number] 12/17/2021 16:43 EDT CR Chest PA & LAT ARIEL SOLITARIO CPT code 31931 Reason For Exam (CR Chest PA & LAT) sob/hypoxia Report Examination: PA And Lateral Chest. Comparison: 12/14/2021. Reason For Study: Shortness of breath/hypoxia. Support Devices: None. Findings/Interpretat ion: 1. Pulmonary vascular and interstitial markings are prominent and ill-defined consistent with interstitial edema. 2. Right posterior sulcus is blunted and suggests small pleural effusion. 3. Cardiac silhouette is normal in size. Report Dictated on --- Final --- Dictating Physician: MD BERGER B NELSON Signed Date and Time: 12/17/2021 6:56 pm Signed by: MD BERGER B NELSON Transcribed Date and Time: 12/17/2021 6:57 [facility] Winston Berger. MD Nahid - 12/17/2021 Patient Name: MIKEL WINSTON Diagnostic Radiology ACCESSION EXAM DATE/TIME PROCEDURE ORDERING PROVIDER [id number] 12/17/2021 16:43 EDT CR Chest PA & LAT ARIEL SOLITARIO CPT code 54405 Reason For Exam (CR Chest PA & LAT) sob/hypoxia Report Examination: PA And Lateral Chest. Comparison: 12/14/2021. Reason For Study: Shortness of breath/hypoxia. Support Devices: None. Findings/Interpretat ion: 1. Pulmonary vascular and interstitial markings are prominent and ill-defined consistent with interstitial edema. 2. Right posterior sulcus is blunted and suggests small pleural effusion. 3. Cardiac silhouette is normal in size. Report Dictated on --- Final --- Dictating Physician: MD BERGER B NELSON Signed Date and Time: 12/17/2021 6:56 pm Signed by: MD BERGER B NELSON Transcribed Date and Time: 12/17/2021 6:57 [facility] Work Phone: Radiology Study observation (narrative) [facility] Work Phone: XR CHEST (2 VW)Ordered By: Winston Berger on 12-17-2021 [facility] Work Phone: CULTURE BLOODon 12-16-2021 Microscopic examination of blood, culture 1 Organism Enterococcus faecalis Isolated: For identification and/or sensitivity, refer to culture collected on: 12/13/2021 at 1518 ([id number]). Normal [facility] Comment on above: Performed By: #### B NP3, CMP3, HEMDF #### [facility] [address] [place] [address] CULTURE BLOOD (Two)on 2021 Microscopic examination of blood, culture CULTURE BLOOD (Two) --> Status: F Enterococcus faecalis DETECTED; Leticia/B Not Detected. Presumptive identification performed using ComplyMD PCR methodology; confirmatory identification to follow. _ The CiklumArray BCID2 PCR Panel can detect the following targets: E. faecalis, E. faecium, Staphylococcus spp., S. aureus, S. epidermidis, S. lugdunensis, Streptococcus spp., S. pyogenes (Group A), S. agalactiae (Group B), S. pneumoniae, A. baumannii complex, B. fragilis, H. influenzae, N. meningitidis (encapsulated), P. aeruginosa, S. maltophilia, Enterobacterales, E. cloacae complex, E. coli, K. aerogenes, K. oxytoca, K. pneumoniae, Proteus spp., Salmonella spp., S. marcescens, C. albicans, C. auris, C. glabrata, C. krusei, C. parapsilosis, C. tropicalis, C. neoformans/gattii, and antimicrobial resistance genes: mecA/C, Leticia/B, CTX-M, IMP, KPC, NDM, OXA-48-like, VIM, and mcr-1. Presumptive identification performed using [employer]Opinion[employer] FilmArray PCR methodology; confirmatory identification to follow. _ The CiklumArray BCID2 PCR Panel can detect the following targets: E. faecalis, E. faecium, Staphylococcus spp., S. aureus, S. epidermidis, S. lugdunensis, Streptococcus spp., S. pyogenes (Group A), S. agalactiae (Group B), S. pneumoniae, A. baumannii complex, B. fragilis, H. influenzae, N. meningitidis (encapsulated), P. aeruginosa, S. maltophilia, Enterobacterales, E. cloacae complex, E. coli, K. aerogenes, K. oxytoca, K. pneumoniae, Proteus spp., Salmonella spp., S. marcescens, C. albicans, C. auris, C. glabrata, C. krusei, C. parapsilosis, C. tropicalis, C. neoformans/gattii, and antimicrobial resistance genes: mecA/C, Leticia/B, CTX-M, IMP, KPC, NDM, OXA-48-like, VIM, and mcr-1. 1 Organism Enterococcus faecalis Isolated: 1 Organism Antibiotic Result Intrp Ampicillin(CHRISTA) <= 2 S Vancomycin(CHRISTA) 1 S Gentamicin High Level synergy(CHRISTA) SYN-R R Streptomycin High Level synergy(CHRISTA)SYN-R R Normal [facility] Comment on above: Performed By: #### B NP3, CMP3, HEMDF #### [facility] [address] [place] [id number] Comp Panel with Mg Reflexon 12-16-2021 Calcium [Mass/Vol] 8.5 mg/dL Normal 8.4-10.[address] [facility] Comment on above: Performed By: #### B GLU #### [facility] [address] [place] [address] ALP [Catalytic activity/Vol] 73 U/L Normal 38-[address] [facility] Comment on above: Performed By: #### B GLU #### [facility] [address] [place] [address] ALT [Catalytic activity/Vol] 14 U/L Normal 0-[address] [facility] Comment on above: Result Comment: The ALT test is performed by an updated assay method. Please note that the reference intervals have been changed and are now sex specific. Performed By: #### B GLU #### [facility] [address] [place] [address] Anion gap [Moles/Vol] 3 mmol/L Normal 3-13 [facility] Comment on above: Performed By: #### B GLU #### [facility] [address] [place] [address] AST [Catalytic activity/Vol] 42 U/L Normal 15-[address] [facility] Comment on above: Performed By: #### B GLU #### [facility] [address] [place] [address] Bilirubin [Mass/Vol] 1.0 mg/dL Normal 0.2-1.3 [facility] Comment on above: Performed By: #### B GLU #### [facility] [address] [place] [address] CO2 [Moles/Vol] 27 mmol/L Normal 22-30 [facility] Comment on above: Performed By: #### B GLU #### [facility] [address] [place] [address] Glucose [Mass/Vol] 140 mg/dL High 70-[address] [facility] Comment on above: Performed By: #### B GLU #### [facility] [address] [place] [address] Protein [Mass/Vol] 5.5 g/dL Low 6.3-8.[address] [facility] Comment on above: Performed By: #### B GLU #### [facility] [address] [place] [address] Urea nitrogen [Mass/Vol] 27 mg/dL High 9-[address] [facility] Comment on above: Performed By: #### B GLU #### [facility] [address] [place] [id number] Creatinine [Mass/Vol] 1.28 mg/dL High 0.52-1.25 [facility] Comment on above: Performed By: #### B GLU #### [facility] [address] [place] [id number] GFR/1.73 sq M.predicted among blacks MDRD (S/P/Bld) [Vol rate/Area] 46.9 mL/min/{1.73_m2} Abnormal >[address] [facility] Comment on above: Performed By: #### B GLU #### [facility] [address] [place] [id number] GFR/1.73 sq M.predicted among non-blacks MDRD (S/P/Bld) [Vol rate/Area] 40.4 mL/min/{1.73_m2} Abnormal >[address] [facility] Comment on above: Result Comment: KDIG O guidelines provide the following GFR categories: Stage GFR(ml/min/1.73 m2) Terms G1 >=90 Normal or high G2 60-89 Mildly decreased* G3a 45-59 Mildly to moderately decreased G3b 30-44 Moderately to severely decreased G4 15-29 Severely decreased G5 <15 Kidney failure *Relative to young adult level. In the absence of evidence of kidney damage, neither GFR category G1 nor G2 fulfill the criteria for CKD. The CKD-EPI equation is validated in individuals 18 years of age and older. Currently the best equation for estimating glomerular filtration rate (GFR) from serum creatinine in children is the Bedside Keller equation. It is less accurate in patients with extremes of muscle mass, restriction of dietary protein, ingestion of creatine, extra-renal metabolism of creatinine, or treatment with medications that affect renal tubular creatinine secretion. Performed By: #### B GLU #### [facility] [address] [place] [id number] Albumin [Mass/Vol] 2.7 g/dL Low 3.5-5.[address] [facility] Comment on above: Performed By: #### B GLU #### [facility] [address] [place] [id number] Chloride [Moles/Vol] 101 mmol/L Normal 98-107 [facility] Comment on above: Performed By: #### B GLU #### [facility] [address] [place] [id number] Potassium [Moles/Vol] 3.0 mmol/L Low 3.5-5.1 [facility] Comment on above: Performed By: #### B GLU #### [facility] [address] [place] [id number] Sodium [Moles/Vol] 131 mmol/L Low 135-[address] [facility] Comment on above: Performed By: #### B GLU #### [facility] [address] [place] [id number] Comprehensive Metabolic Pane l w/ Reflex to MGon 12-16-2021 Albumin [Mass/Vol] 2.7 g/dL Low 3.5 - 5.0 g/dL [facility] ALP (Bld) [Catalytic activity/Vol] 73 U/L 38 - 126 U/L [facility] ALT [Catalytic activity/Vol] 14 U/L 0 - 34 U/L [facility] Comment on above: The ALT test is perf ormed by an updated assay method. Please note that the reference intervals have been changed and are now sex specific. Anion gap [Moles/Vol] 3 mmol/L 3 - 13 mmol/L [facility] AST [Catalytic activity/Vol] 42 U/L 15 - 46 U/L [facility] Bilirubin [Mass/Vol] 1.0 mg/dL 0.2 - 1 .3 mg/dL [facility] Calcium [Mass/Vol] 8.5 mg/dL 8.4 - 10. 4 mg/dL [facility] Chloride [Moles/Vol] 101 mmol/L 98 - 10 7 mmol/L [facility] CO2 [Moles/Vol] 27 mmol/L 22 - 30 mmol/L [facility] Creatinine [Mass/Vol] 1.28 mg/dL High 0.52 - 1.25 mg/dL [facility] EGFR IF NonAfrican Mosotho 40.4 mL/min Abnormal >60 [facility] Comment on above: KDIGO guidelines pro vide the following GFR categories: Stage GFR(ml/min/1.73 m2) Terms G1 >=90 Normal or high G2 60-89 Mildly decreased* G3a 45-59 Mildly to moderately decreased G3b 30-44 Moderately to severely decreased G4 15-29 Severely decreased G5 <15 Kidney failure *Relative to young adult level. In the absence of evidence of kidney damage, neither GFR category G1 nor G2 fulfill the criteria for CKD. The CKD-EPI equation is validated in individuals 18 years of age and older. Currently the best equation for estimating glomerular filtration rate (GFR) from serum creatinine in children is the Bedside Keller equation. It is less accurate in patients with extremes of muscle mass, restriction of dietary protein, ingestion of creatine, extra-renal metabolism of creatinine, or treatment with medications that affect renal tubular creatinine secretion. Free PSA/Total PSA [Mass fraction] 5.5 g/dL Low 6.3 - 8.2 g/dL [facility] GFR/1.73 sq M.predicted among blacks MDRD (S/P/Bld) [Vol rate/Area] 46.9 mL/min/{1.73_m2} Abnormal >60 [facility] Glucose [Mass/Vol] 140 mg/dL High 70 - 100 mg/dL [facility] Interpretation and review of laboratory results Abnormal [facility] Potassium [Moles/Vol] 3.0 mmol/L Low 3.5 - 5.1 mmol/L [facility] Sodium [Moles/Vol] 131 mmol/L Low 135 - 145 mmol/L [facility] Urea nitrogen (BldV) [Mass/Vol] 27 mg/dL High 9 - 20 mg/dL [facility] Test Performed by [facility], [address] [place] [id number] [place] [address] LAB [facility] Culture, Bloodon 12-16-2021 Blood Culture, Routine Isolated: For identification and/or sensitivity, refer to culture collected on: 12/13/2021 at 1518 ([id number]). [facility] Culture, Blood 2on 2 Blood Culture, Routine Enterococcus faecalis DETECTED; Leticia/B Not Detected. Presumptive identification performed using ComplyMD PCR methodology; confirmatory identification to follow. _ The ComplyMD BCID2 PCR Panel can detect the following targets: E. faecalis, E. faecium, Staphylococcus spp., S. aureus, S. epidermidis, S. lugdunensis, Streptococcus spp., S. pyogenes (Group A), S. agalactiae (Group B), S. pneumoniae, A. baumannii complex, B. fragilis, H. influenzae, N. meningitidis (encapsulated), P. aeruginosa, S. maltophilia, Enterobacterales, E. cloacae complex, E. coli, K. aerogenes, K. oxytoca, K. pneumoniae, Proteus spp., Salmonella spp., S. marcescens, C. albicans, C. auris, C. glabrata, C. krusei, C. parapsilosis, C. tropicalis, C. neoformans/gattii, and antimicrobial resistance genes: mecA/C, Leticia/B, CTX-M, IMP, KPC, NDM, OXA-48-like, VIM, and mcr-1. Abnormal [facility] Blood Culture, Routine Isolated: PRINCE [facility] Glucose,Bedsideon 12-16-2021 Glucose [Mass/Vol] 208 mg/dL High 70-[address] [facility] Comment on above: Result Comment: Test performed by glucose meter. Results may be 10%-15% lower than serum/plasma values. (CLIA ID [id number]) Performed By: #### B NP3, CMP3, HEMDF #### [facility] [address] [place] [address] Glucose [Mass/Vol] 153 mg/dL High [address] Comment on above: Result Comment: Test performed by glucose meter. Results may be 10%-15% lower than serum/plasma values. (CLIA ID [id number]) Performed By: #### B NP3, CMP3, HEMDF #### [facility] [address] [place] [address] Glucose [Mass/Vol] 169 mg/dL High [address] Comment on above: Result Comment: Test performed by glucose meter. Results may be 10%-15% lower than serum/plasma values. (CLIA ID [id number]) Performed By: #### B GLU #### [facility] [address] [place] [address] Glucose [Mass/Vol] 150 mg/dL High [address] [facility] Comment on above: Result Comment: Test performed by glucose meter. Results may be 10%-15% lower than serum/plasma values. (CLIA ID [id number]) Performed By: #### B NP3, CMP3, HEMDF #### [facility] [address] [place] [address] Magnesiumon 12-16-2021 Magnesium [Mass/Vol] 1.3 mg/dL Low 1.6-2.3 [facility] Comment on above: Performed By: #### B GLU #### [facility] [address] [place] [address] Interpretation and review of laboratory results Abnormal [facility] Magnesium [Mass/Vol] 1.3 mg/dL Low 1.6 - 2 .3 mg/dL [facility] Test Performed by [facility], [address] [place], [place] [id number] [place] [address] LAB [facility] No Panel Informationon 12-16 Blood Culture, Routine Enterococcus faecalis Abnormal [facility] Interpretation and review of laboratory results Abnormal [facility] Test Performed by [facility], [address] [place] [address] [facility] LAB [facility] POCT GlucoseOrdered By: Andie Cornell on 12-16-2021 Glucose [Mass/Vol] 208 mg/dL High 70 - 100 mg/dL [facility] Comment on above: Test performed by gl ucose meter. Results may be 10%-15% lower than serum/plasma values. (CLIA ID [id number]) Interpretation and review of laboratory results Abnormal [facility] POCT Glucoseon 12-16-2021 Test Performed by [facility], [address] [place], [place] [id number] [place] [address] LAB Glucose [Mass/Vol] 153 mg/dL High 70 - 100 mg/dL [facility] Work Phone: Comment on above: Test performed by gl ucose meter. Results may be 10%-15% lower than serum/plasma values. (CLIA ID [id number]) Interpretation and review of laboratory results Abnormal [facility] Work Phone: Test Performed by [facility], [address] [place], [place] [id number] [place] [address] LAB [facility] Work Phone: Test Performed by [facility], [address] LAB Glucose [Mass/Vol] 150 mg/dL High 70 - 100 mg/dL [facility] Work Phone: Comment on above: Test performed by gl ucose meter. Results may be 10%-15% lower than serum/plasma values. (CLIA ID [id number]) Interpretation and review of laboratory results Abnormal [facility] Work Phone: Test Performed by [facility], [address] [place], [place] [id number] [place] [address] LAB [facility] Work Phone: POCT GlucoseOrdered By: Asa Villegas on 12-16-2021 Glucose [Mass/Vol] 169 mg/dL High 70 - 100 mg/dL [facility] Work Phone: Comment on above: Test performed by gl ucose meter. Results may be 10%-15% lower than serum/plasma values. (CLIA ID [id number]) Interpretation and review of laboratory results Abnormal [facility] Work Phone: [facility] Work Phone: CBC with Auto Differentialon 12-15-2021 Absolute Baso # 0.0 10*3/uL 0.0 - 0.2 10*3/uL [facility] Absolute Neut # 8.3 10*3/uL High 1.8 - 7.0 10*3/uL [facility] Basophils/100 WBC (Bld) 0.3 % 0.0 - 2.0 % [facility] Eosinophils (Bld) [#/Vol] 0.0 10*3/uL 0. 0 - 0.5 10*3/uL [facility] Eosinophils/100 WBC (Bld) 0.1 % Low 1.0 - 6.0 % [facility] Granulocytes/100 WBC (Bld) 82.6 % High 40.0 - 80.0 % [facility] Hematocrit (Bld) [Volume fraction] 32.0 % Low 35.0 - 47.0 % [facility] Hemoglobin.gastrointestin al spec 1 Ql (Stl) 10.8 g/dL Low 11.7 - 16.0 g/dL [facility] Interpretation and review of laboratory results Abnormal [facility] Lymphocytes (Bld) [#/Vol] 0.7 10*3/uL Low 1. 0 - 4.3 10*3/uL [facility] Lymphocytes/100 WBC (Bld) 7.3 % Low 20 .0 - 40.0 % [facility] MCH (RBC) [Entitic mass] 32.6 pg 26. 0 - 34.0 pg [facility] MCHC (RBC) [Mass/Vol] 33.8 % 32.0 - 36.0 % [facility] MCV (RBC) [Entitic vol] 96.4 fL 79.0 - 98.0 fL [facility] Monocytes (Bld) [#/Vol] 1.0 10*3/uL High 0.0 - 0.8 10*3/uL [facility] Monocytes/100 WBC (Bld) 9.7 % 2.0 - 10.0 % [facility] Platelet distribution width (Bld) [Ratio] 13.7 % 11.5 - 14.5 % [facility] Platelet mean volume (Bld) [Entitic vol] 9.8 fL 7.4 - 12.4 fL [facility] Comment on above: MPV is a calculated measurement using platelet volume ratio. Platelets (Bld) [#/Vol] 75 10*3/uL Low 140 - 440 10*3/uL [facility] RBC (Bld) [#/Vol] 3.32 10*6/uL Low 3.80 - 5.2 0 10*6/uL [facility] WBC (Bld) [#/Vol] 10.1 10*3/uL 3.6 - 10.7 10*3/uL [facility] Test Performed by [facility], [address] [facility] LAB [facility] CULTURE URINEon 12-15-2021 CULTURE URINE 1 Organism Escherichia coli >100,000 CFU/ml 1 Organism Antibiotic Result Intrp Ampicillin(CHRISTA) >= 32 R Cefazolin(CHRISTA) <= 4 S Ceftriaxone(CHRISTA) <= 1 S Cefepime(CHRISTA) <= 1 S Aztreonam(CHRISTA) <= 1 S Amoxicillin/Clavulan ic Acid(CHRISTA) 16 I Ampicillin/Sulbactam (CHRISTA) >= 32 R Pip/Tazobactam(CHRISTA) 8 S Meropenem(CHRISAT) <= 0.25 S Ciprofloxacin(CHRISTA) <= 0.25 S Trimeth/Sulfa(CHRISTA) <= 20 S Nitrofurantoin(CHRISTA) <= 16 S Gentamicin(CHRISTA) <= 1 S Amikacin(CHRISTA) <= [address] [facility] Comment on above: Performed By: #### B GLU #### [facility] [address] [place] [id number] Comp Panel with Mg Reflexon 12-15-2021 ALP [Catalytic activity/Vol] 68 U/L Normal 38-[address] [facility] Comment on above: Performed By: #### B GLU #### [facility] [address] [place] [id number] ALT [Catalytic activity/Vol] 25 U/L Normal 0-[address] [facility] Comment on above: Result Comment: The ALT test is performed by an updated assay method. Please note that the reference intervals have been changed and are now sex specific. Performed By: #### B GLU #### [facility] [address] [place] [id number] Calcium [Mass/Vol] 8.7 mg/dL Normal 8.4-10.[address] [facility] Comment on above: Performed By: #### B GLU #### [facility] [address] [place] [id number] Glucose [Mass/Vol] 212 mg/dL High 70-[address] [facility] Comment on above: Performed By: #### B GLU #### [facility] [address] [place] [id number] Anion gap [Moles/Vol] 5 mmol/L Normal 3-13 [facility] Comment on above: Performed By: #### B GLU #### [facility] [address] [place] [address] AST [Catalytic activity/Vol] 49 U/L High 15-[address] [facility] Comment on above: Performed By: #### B GLU #### [facility] [address] [place] [address] Bilirubin [Mass/Vol] 1.2 mg/dL Normal 0.2-1.3 [facility] Comment on above: Performed By: #### B GLU #### [facility] [address] [place] [address] CO2 [Moles/Vol] 24 mmol/L Normal 22-30 [facility] Comment on above: Performed By: #### B GLU #### [facility] [address] [place] [address] Creatinine [Mass/Vol] 1.20 mg/dL Normal 0.52-1.25 [facility] Comment on above: Performed By: #### B GLU #### [facility] [address] [place] [address] GFR/1.73 sq M.predicted among blacks MDRD (S/P/Bld) [Vol rate/Area] 50.7 mL/min/{1.73_m2} Abnormal >[address] [facility] Comment on above: Performed By: #### B GLU #### [facility] [address] [place] [address] GFR/1.73 sq M.predicted among non-blacks MDRD (S/P/Bld) [Vol rate/Area] 43.7 mL/min/{1.73_m2} Abnormal >[address] [facility] Comment on above: Result Comment: KDIG O guidelines provide the following GFR categories: Stage GFR(ml/min/1.73 m2) Terms G1 >=90 Normal or high G2 60-89 Mildly decreased* G3a 45-59 Mildly to moderately decreased G3b 30-44 Moderately to severely decreased G4 15-29 Severely decreased G5 <15 Kidney failure *Relative to young adult level. In the absence of evidence of kidney damage, neither GFR category G1 nor G2 fulfill the criteria for CKD. The CKD-EPI equation is validated in individuals 18 years of age and older. Currently the best equation for estimating glomerular filtration rate (GFR) from serum creatinine in children is the Bedside Keller equation. It is less accurate in patients with extremes of muscle mass, restriction of dietary protein, ingestion of creatine, extra-renal metabolism of creatinine, or treatment with medications that affect renal tubular creatinine secretion. Performed By: #### B GLU #### [facility] [address] [place] [id number] Protein [Mass/Vol] 5.9 g/dL Low 6.3-8.[address] [facility] Comment on above: Performed By: #### B GLU #### [facility] [address] [place] [id number] Urea nitrogen [Mass/Vol] 25 mg/dL High 9-[address] [facility] Comment on above: Performed By: #### B GLU #### [facility] [address] [place] [id number] Potassium [Moles/Vol] 3.2 mmol/L Low 3.5-5.1 [facility] Comment on above: Performed By: #### B GLU #### [facility] [address] [place] [id number] Albumin [Mass/Vol] 2.9 g/dL Low 3.5-5.[address] [facility] Comment on above: Performed By: #### B GLU #### [facility] [address] [place] [id number] Chloride [Moles/Vol] 103 mmol/L Normal 98-107 [facility] Comment on above: Performed By: #### B GLU #### [facility] [address] [place] [id number] Sodium [Moles/Vol] 133 mmol/L Low 135-[address] [facility] Comment on above: Performed By: #### B GLU #### [facility] [address] [place] [address] Comprehensive Metabolic Pane l w/ Reflex to MGon 12-15-2021 Albumin [Mass/Vol] 2.9 g/dL Low 3.5 - 5.0 g/dL [facility] ALP (Bld) [Catalytic activity/Vol] 68 U/L 38 - 126 U/L [facility] ALT [Catalytic activity/Vol] 25 U/L 0 - 34 U/L [facility] Comment on above: The ALT test is perf ormed by an updated assay method. Please note that the reference intervals have been changed and are now sex specific. Anion gap [Moles/Vol] 5 mmol/L 3 - 13 mmol/L [facility] AST [Catalytic activity/Vol] 49 U/L High 15 - 46 U/L [facility] Bilirubin [Mass/Vol] 1.2 mg/dL 0.2 - 1 .3 mg/dL [facility] Calcium [Mass/Vol] 8.7 mg/dL 8.4 - 10. 4 mg/dL [facility] Chloride [Moles/Vol] 103 mmol/L 98 - 10 7 mmol/L [facility] CO2 [Moles/Vol] 24 mmol/L 22 - 30 mmol/L [facility] Creatinine [Mass/Vol] 1.2 mg/dL 0.52 - 1.25 mg/dL [facility] EGFR IF NonAfrican Mosotho 43.7 mL/min Abnormal >60 [facility] Comment on above: KDIGO guidelines pro vide the following GFR categories: Stage GFR(ml/min/1.73 m2) Terms G1 >=90 Normal or high G2 60-89 Mildly decreased* G3a 45-59 Mildly to moderately decreased G3b 30-44 Moderately to severely decreased G4 15-29 Severely decreased G5 <15 Kidney failure *Relative to young adult level. In the absence of evidence of kidney damage, neither GFR category G1 nor G2 fulfill the criteria for CKD. The CKD-EPI equation is validated in individuals 18 years of age and older. Currently the best equation for estimating glomerular filtration rate (GFR) from serum creatinine in children is the Bedside Keller equation. It is less accurate in patients with extremes of muscle mass, restriction of dietary protein, ingestion of creatine, extra-renal metabolism of creatinine, or treatment with medications that affect renal tubular creatinine secretion. Free PSA/Total PSA [Mass fraction] 5.9 g/dL Low 6.3 - 8.2 g/dL [facility] GFR/1.73 sq M.predicted among blacks MDRD (S/P/Bld) [Vol rate/Area] 50.7 mL/min/{1.73_m2} Abnormal >60 [facility] Glucose [Mass/Vol] 212 mg/dL High 70 - 100 mg/dL [facility] Interpretation and review of laboratory results Abnormal [facility] Potassium [Moles/Vol] 3.2 mmol/L Low 3.5 - 5.1 mmol/L [facility] Sodium [Moles/Vol] 133 mmol/L Low 135 - 145 mmol/L [facility] Urea nitrogen (BldV) [Mass/Vol] 25 mg/dL High 9 - 20 mg/dL [facility] Test Performed by [facility], [address] [place], [place] [address] [facility] Culture, Urineon 12-15-2021 Bacteria identified Cx Nom (U) Escherichia coli Abnormal [facility] Bacteria identified Cx Nom (U) >100,000 CFU/ml [facility] Interpretation and review of laboratory results Abnormal [facility] Test Performed by [facility], [address] [place] [address] [facility] ECHO Complete 2D W Doppler W Coloron 12-15-2021 TRANSTHORACIC ECHOCARDIOGRAM PATIENT: Mikel Winston STUDY DATE: 12/15/2021 : 1945 AGE: 76 HT/WT: 165.1 cm (65 92.1 kg in) (202.6 lb) GENDER: F BP: 140 / 64 LOCATION: [facility] PATIENT Inpatient [facility] STATUS: *ORDERING PHYSICIAN: * Terence Gonzalez *READING PHYSICIAN: * Aquilino *PROBATION MANAGER: * Florencia Workman RDCS, MD, [facility] AE, RVT, [place] INDICATIONS: CHF, Unspecified (I509). CONCLUSIONS SUMMARY: 1. Left ventricle: The cavity size is normal. Wall thickness is mildly increased. Systolic function is mildly decreased by visual assessment. The estimated ejection fraction is 45-50%. 2. Right ventricle: The cavity size is moderately dilated. Systolic function is mildly decreased. 3. Ventricular septum: Abnormal septal motion due to left bundle branch block. 4. Left atrium: The atrium is mildly dilated. 5. Aortic valve: There is mild to moderate stenosis. The mean systolic gradient is 16 mm Hg. The peak systolic gradient is 26 mm Hg. The valve area by the velocity-time integral method is 1.3 cm^2. STUDY DATA: Complete transthoracic echocardiogram. Procedure: Image quality was poor. The study was technically limited due to poor acoustic window availability, body habitus, and respiratory interference. Intravenous imaging enhancement (Definity) was administered to opacify the chamber. Definity lot #: [id number]. M-mode, complete 2D, complete spectral Doppler, and color flow Doppler images were acquired and archived for permanent storage and are available for subsequent review. Study status: Routine. Patient status: Inpatient. FINDINGS LEFT VENTRICLE: The cavity size is normal. Wall thickness is mildly increased. Systolic function is mildly decreased by visual assessment. The estimated ejection fraction is 45-50%. There are no regional wall motion abnormalities. RIGHT VENTRICLE: The cavity size is moderately dilated. Systolic function is mildly decreased. Right ventricular systolic pressure is within the normal range. VENTRICULAR SEPTUM: Abnormal septal motion due to left bundle branch block. There is no evidence of a ventricular septal defect. LEFT ATRIUM: The atrium is mildly dilated. RIGHT ATRIUM: The atrium is normal in size. ATRIAL SEPTUM: The interatrial septum is normal. Doppler shows no shunt. MITRAL VALVE: Mildly calcified annulus. Leaflet separation is normal. Doppler: Transvalvular velocity is within the normal range. There is no evidence for stenosis. There is trivial, less than 1+ regurgitation. The peak diastolic gradient is 3 mm Hg. AORTIC VALVE: Trileaflet; moderately thickened, moderately calcified leaflets. Doppler: There is mild to moderate stenosis. There is no significant regurgitation. Dimensionless index: 0.33. The valve area by the velocity-time integral method is 1.3 cm^2. The valve area index by the velocity-time integral method is 0.6 cm^2/m^2. The mean systolic gradient is 16 mm Hg. The peak systolic gradient is 26 mm Hg. The peak systolic velocity is 2.6 m/sec. TRICUSPID VALVE: Mildly thickened leaflets. Leaflet separation is normal. Doppler: Transvalvular velocity is within the normal range. There is no evidence for stenosis. There is mild, 1+ regurgitation. PULMONIC VALVE: Structurally normal valve. Cusp separation is normal. Doppler: Transvalvular velocity is within the normal range. There is mild, 1+ regurgitation. AORTA: Aortic root: The aortic root is normal in size. Ascending aorta: The ascending aorta is normal in size. PERICARDIUM: There is no pericardial effusion. SYSTEMIC VEINS: Inferior vena cava: Not well visualized. Measurements Value Reference Aortic root ID, ED (sinus) 2.8 cm <4.1 Value Reference Ascending aorta ID, A-P, S 3.3 cm Ascending aorta ID/bsa, A-P, S 1.7 cm/m^2 IVC Value Reference ID 1.9 cm Left ventricle Value Reference LV ID, ED 5.0 cm 3.8 - 5.2 LV ID, ES 3.5 cm 2.2 - 3.5 LV ID/bsa, ED 2.5 cm/m^2 (more content not included)... [facility] Aquilino Don MD - 12/15/2021 TRANSTHORACIC ECHOCARDIOGRAM PATIENT: Mikel Winston STUDY DATE: 12/15/2021 : 1945 AGE: 76 HT/WT: 165.1 cm (65 92.1 kg in) (202.6 lb) GENDER: F BP: 140 / 64 LOCATION: [facility] PATIENT Inpatient [facility] STATUS: *ORDERING PHYSICIAN: * Terence Gonzalez *READING PHYSICIAN: * Aquilino *PROBATION MANAGER: * Nova Melara RDCS, MD Florencia, [facility] AE, RVT, VT INDICATIONS: CHF, Unspecified (I509). CONCLUSIONS SUMMARY: 1. Left ventricle: The cavity size is normal. Wall thickness is mildly increased. Systolic function is mildly decreased by visual assessment. The estimated ejection fraction is 45-50%. 2. Right ventricle: The cavity size is moderately dilated. Systolic function is mildly decreased. 3. Ventricular septum: Abnormal septal motion due to left bundle branch block. 4. Left atrium: The atrium is mildly dilated. 5. Aortic valve: There is mild to moderate stenosis. The mean systolic gradient is 16 mm Hg. The peak systolic gradient is 26 mm Hg. The valve area by the velocity-time integral method is 1.3 cm^2. STUDY DATA: Complete transthoracic echocardiogram. Procedure: Image quality was poor. The study was technically limited due to poor acoustic window availability, body habitus, and respiratory interference. Intravenous imaging enhancement (Definity) was administered to opacify the chamber. Definity lot #: [id number]. M-mode, complete 2D, complete spectral Doppler, and color flow Doppler images were acquired and archived for permanent storage and are available for subsequent review. Study status: Routine. Patient status: Inpatient. FINDINGS LEFT VENTRICLE: The cavity size is normal. Wall thickness is mildly increased. Systolic function is mildly decreased by visual assessment. The estimated ejection fraction is 45-50%. There are no regional wall motion abnormalities. RIGHT VENTRICLE: The cavity size is moderately dilated. Systolic function is mildly decreased. Right ventricular systolic pressure is within the normal range. VENTRICULAR SEPTUM: Abnormal septal motion due to left bundle branch block. There is no evidence of a ventricular septal defect. LEFT ATRIUM: The atrium is mildly dilated. RIGHT ATRIUM: The atrium is normal in size. ATRIAL SEPTUM: The interatrial septum is normal. Doppler shows no shunt. MITRAL VALVE: Mildly calcified annulus. Leaflet separation is normal. Doppler: Transvalvular velocity is within the normal range. There is no evidence for stenosis. There is trivial, less than 1+ regurgitation. The peak diastolic gradient is 3 mm Hg. AORTIC VALVE: Trileaflet; moderately thickened, moderately calcified leaflets. Doppler: There is mild to moderate stenosis. There is no significant regurgitation. Dimensionless index: 0.33. The valve area by the velocity-time integral method is 1.3 cm^2. The valve area index by the velocity-time integral method is 0.6 cm^2/m^2. The mean systolic gradient is 16 mm Hg. The peak systolic gradient is 26 mm Hg. The peak systolic velocity is 2.6 m/sec. TRICUSPID VALVE: Mildly thickened leaflets. Leaflet separation is normal. Doppler: Transvalvular velocity is within the normal range. There is no evidence for stenosis. There is mild, 1+ regurgitation. PULMONIC VALVE: Structurally normal valve. Cusp separation is normal. Doppler: Transvalvular velocity is within the normal range. There is mild, 1+ regurgitation. AORTA: Aortic root: The aortic root is normal in size. Ascending aorta: The ascending aorta is normal in size. PERICARDIUM: There is no pericardial effusion. SYSTEMIC VEINS: Inferior vena cava: Not well visualized. Measurements Value Reference Aortic root ID, ED (sinus) 2.8 cm <4.1 Value Reference Ascending aorta ID, A-P, S 3.3 cm Ascending aorta ID/bsa, A-P, S 1.7 cm/m^2 IVC Value Reference ID 1.9 cm Left ventricle Value Reference LV ID, ED 5.0 cm 3.8 - 5.2 LV ID, ES 3.5 cm 2.2 - 3.5 LV ID/bsa, ED 2.5 cm/m^2 2.3 - 3.1 LV ID/bsa, ES 1.8 cm/m^2 1.3 - 2.1 LV PW thickness, ED (H) 1.3 cm 0.6 - 0.9 LV PW/LV ID ratio, ED 0.26 LV wall mass (H) 270 g 66 - 150 LV wall mass/bsa (H) 135 g/m^2 44 - 88 Stroke volume/bsa, 1-p A2C 17.4 ml/m^2 LV end-diastolic volume, 1-p A4C 85 ml 48 - 140 LV end-systolic volume, 1-p A4C 47 ml 12 - 60 LV end-diastolic volume, 2-p 70 ml 46 - 106 LV end-systolic volume, 2-p 3 (more content not included)... [facility] Work Phone: ECHO Complete 2D W Doppler W ColorOrdered By: Aquilino Don on 12-15-2021 [facility] Work Phone: Echo Complete w/wo Contrasto n 12-15-2021 Echo Complete w/wo Contrast Patient Name: MIKEL WINSTON Ultrasound ACCESSION EXAM DATE/TIME PROCEDURE ORDERING PROVIDER [id number] 12/15/2021 13:24 EDT Echo Complete w/wo MD GONZALEZ PRAMOD Contrast Reason For Exam (Echo Complete w/wo Contrast) chf Report TRANSTHORACIC ECHOCARDIOGRAM PATIENT: Mikel Winston STUDY DATE: 12/15/2021 : 1945 AGE: 76 HT/WT: 165.1 cm (65 92.1 kg in) (202.6 lb) GENDER: F BP: 140 / 64 LOCATION: [facility] PATIENT Inpatient [facility] STATUS: *ORDERING PHYSICIAN: * Terence Gonzalez *READING PHYSICIAN: * Aquilino ColePROBATION MANAGER: * Florencia Workman RDCS, MD, [facility] AE, RVT, VT INDICATIONS: CHF, Unspecified (I509). CONCLUSIONS SUMMARY: 1. Left ventricle: The cavity size is normal. Wall thickness is mildly increased. Systolic function is mildly decreased by visual assessment. The estimated ejection fraction is 45-50%. 2. Right ventricle: The cavity size is moderately dilated. Systolic function is mildly decreased. 3. Ventricular septum: Abnormal septal motion due to left bundle branch block. 4. Left atrium: The atrium is mildly dilated. 5. Aortic valve: There is mild to moderate stenosis. The mean systolic gradient is 16 mm Hg. The peak systolic gradient is 26 mm Hg. The valve area by the velocity-time integral method is 1.3 cm^2. STUDY DATA: Complete transthoracic echocardiogram. Procedure: Image quality was poor. The study was technically limited due to poor acoustic window availability, body habitus, and respiratory interference. Intravenous imaging enhancement (Definity) was administered to opacify the chamber. Definity lot #: [id number]. M-mode, complete 2D, complete spectral Doppler, and color flow Doppler images were acquired and archived for permanent storage and are available for subsequent review. Study status: Routine. Patient status: Inpatient. Ultrasound Report FINDINGS LEFT VENTRICLE: The cavity size is normal. Wall thickness is mildly increased. Systolic function is mildly decreased by visual assessment. The estimated ejection fraction is 45-50%. There are no regional wall motion abnormalities. RIGHT VENTRICLE: The cavity size is moderately dilated. Systolic function is mildly decreased. Right ventricular systolic pressure is within the normal range. VENTRICULAR SEPTUM: Abnormal septal motion due to left bundle branch block. There is no evidence of a ventricular septal defect. LEFT ATRIUM: The atrium is mildly dilated. RIGHT ATRIUM: The atrium is normal in size. ATRIAL SEPTUM: The interatrial septum is normal. Doppler shows no shunt. MITRAL VALVE: Mildly calcified annulus. Leaflet separation is normal. Doppler: Transvalvular velocity is within the normal range. There is no evidence for stenosis. There is trivial, less than 1+ regurgitation. The peak diastolic gradient is 3 mm Hg. AORTIC VALVE: Trileaflet; moderately thickened, moderately calcified leaflets. Doppler: There is mild to moderate stenosis. There is no significant regurgitation. Dimensionless index: 0.33. The valve area by the velocity-time integral method is 1.3 cm^2. The valve area index by the velocity-time integral method is 0.6 cm^2/m^2. The mean systolic gradient is 16 mm Hg. The peak systolic gradient is 26 mm Hg. The peak systolic velocity is 2.6 m/sec. TRICUSPID VALVE: Mildly thickened leaflets. Leaflet separation is normal. Doppler: Transvalvular velocity is within the normal range. There is no evidence for stenosis. There is mild, 1+ regurgitation. PULMONIC VALVE: Structurally normal valve. Cusp separation is normal. Doppler: Transvalvular velocity is within the normal range. There is mild, 1+ regurgitation. AORTA: Aortic root: The aortic root is normal in size. Ascending aorta: The ascending aorta is normal in size. PERICARDIUM: There is no pericardial effusion. SYSTEMIC VEINS: Inferior vena cava: Not well visualized. Measurements Value Reference Aortic root ID, ED (sinus) 2.8 cm <4.1 Value Reference Ascending aorta ID, A-P, S 3.3 cm Ascending aorta ID/bsa, A-P, S 1.7 cm/m^2 IVC Value Reference ID 1.9 cm Left ventricle Value Reference LV ID, ED 5.0 cm 3.8 - 5.2 LV ID, ES 3.5 cm 2.2 - 3.5 LV ID/bsa, ED 2.5 cm/m^2 2.3 - 3.1 LV ID/bsa, ES 1.8 cm/m^2 1.3 - 2.1 LV PW thickness, ED (H) 1.3 cm 0.6 - 0.9 LV PW/LV ID ratio, ED 0.26 LV wall mass (H) 270 g 66 - 150 LV wall mass/bsa (H) 135 g/m^2 44 - 88 Stroke volume/bsa, (more content not included)... Normal [facility] Glucose,Bedsideon 12-15-2021 Glucose [Mass/Vol] 215 mg/dL High 70-[address] [facility] Comment on above: Result Comment: Test performed by glucose meter. Results may be 10%-15% lower than serum/plasma values. (CLIA ID [id number]) Performed By: #### B NP3, CMP3, HEMDF #### [facility] [address] [place] [id number] Glucose [Mass/Vol] 212 mg/dL High 70-[address] [facility] Comment on above: Result Comment: Test performed by glucose meter. Results may be 10%-15% lower than serum/plasma values. (CLIA ID [id number]) Performed By: #### B NP3, CMP3, HEMDF #### [facility] [address] [place] [address] Glucose [Mass/Vol] 185 mg/dL [facility] [address] [place] [address] Comment on above: Result Comment: Test performed by glucose meter. Results may be 10%-15% lower than serum/plasma values. (CLIA ID [id number]) Performed By: #### B GLU #### [facility] [address] [place] [address] Glucose [Mass/Vol] 226 mg/dL High 70-[address] [facility] Comment on above: Result Comment: Test performed by glucose meter. Results may be 10%-15% lower than serum/plasma values. (CLIA ID [id number]) Performed By: #### B NP3, CMP3, HEMDF #### [facility] [address] [place] [id number] Hemogram w/ Autodiffon 12-15 Abs Baso Cnt 0.0 10*3/uL Normal 0.0-0.2 [facility] Comment on above: Performed By: #### B GLU #### [facility] [address] [place] [id number] Abs Neutrophile Cnt 8.3 10*3/uL High 1.8-7.0 [facility] Comment on above: Performed By: #### B GLU #### [facility] [address] [place] [address] Basophils/100 WBC (Bld) 0.3 % Normal 0.0-2.0 S [facility] Comment on above: Performed By: #### B GLU #### [facility] [address] [place] [address] Eosinophils (Bld) [#/Vol] 0.0 10*3/uL Normal 0.0-0.[address] [facility] Comment on above: Performed By: #### B GLU #### [facility] [address] [place] [address] Eosinophils/100 WBC (Bld) 0.1 % Low 1.0-6.[address] [facility] Comment on above: Performed By: #### B GLU #### [facility] [address] [place] [address] Erythrocyte distribution width (RBC) [Ratio] 13.7 % Normal 11.5-14.[address] [facility] Comment on above: Performed By: #### B GLU #### [facility] [address] [place] [address] Granulocytes/100 WBC (Bld) 82.6 % High 40.0-80.[address] [facility] Comment on above: Performed By: #### B GLU #### [facility] [address] [place] [address] Hematocrit (Bld) [Volume fraction] 32.0 % Low 35.0-47.[address] [facility] Comment on above: Performed By: #### B GLU #### [facility] [address] [place] [address] Hemoglobin (Bld) [Mass/Vol] 10.8 g/dL Low 11.7-16.[address] [facility] Comment on above: Performed By: #### B GLU #### [facility] [address] [place] [address] Lymphocytes (Bld) [#/Vol] 0.7 10*3/uL Low 1.0-4.[address] [facility] Comment on above: Performed By: #### B GLU #### [facility] [address] [place] [address] Lymphocytes/100 WBC (Bld) 7.3 % Low 20.0-40.[address] [facility] Comment on above: Performed By: #### B GLU #### [facility] [address] [place] [address] MCH (RBC) [Entitic mass] 32.6 pg Normal 26.0-34.[address] [facility] Comment on above: Performed By: #### B GLU #### [facility] [address] [place] [address] MCHC 33.8 % Normal 32.0-36.[address] [facility] Comment on above: Performed By: #### B GLU #### [facility] [address] [place] [address] MCV (RBC) [Entitic vol] 96.4 fL Normal 79.0-98.0 S [facility] Comment on above: Performed By: #### B GLU #### [facility] [address] [place] [address] Monocytes (Bld) [#/Vol] 1.0 10*3/uL High 0.0-0.[address] [facility] Comment on above: Performed By: #### B GLU #### [facility] [address] [place] [address] Monocytes/100 WBC (Bld) 9.7 % Normal 2.0-10.0 S [facility] Comment on above: Performed By: #### B GLU #### [facility] [address] [place] [address] Platelet mean volume (Bld) [Entitic vol] 9.8 fL Normal 7.4-12.[address] [facility] Comment on above: Result Comment: MPV is a calculated measurement using platelet volume ratio. Performed By: #### B GLU #### [facility] [address] [place] [address] Platelets (Bld) [#/Vol] 75 10*3/uL Low 140-440 S [facility] Comment on above: Performed By: #### B GLU #### [facility] [address] [place] [address] RBC (Bld) [#/Vol] 3.32 10*6/uL Low 3.80-5.[address] [facility] Comment on above: Performed By: #### B GLU #### [facility] [address] [place] [address] WBC (Bld) [#/Vol] 10.1 10*3/uL Normal 3.6-10.[address] [facility] Comment on above: Performed By: #### B GLU #### [facility] [address] [place] [address] Magnesiumon 12-15-2021 Magnesium [Mass/Vol] 1.2 mg/dL Low 1.6-2.3 [facility] Comment on above: Performed By: #### B GLU #### [facility] [address] [place] [address] Interpretation and review of laboratory results Abnormal [facility] Magnesium [Mass/Vol] 1.2 mg/dL Low 1.6 - 2 .3 mg/dL [facility] Test Performed by [facility], [address] LAB [facility] POCT GlucoseOrdered By: Zofia Catherine on 12-15-2021 Glucose [Mass/Vol] 215 mg/dL High 70 - 100 mg/dL [facility] Work Phone: Comment on above: Test performed by gl ucose meter. Results may be 10%-15% lower than serum/plasma values. (CLIA ID [id number]) Interpretation and review of laboratory results Abnormal [facility] Work Phone: [facility] Work Phone: POCT Glucoseon 12-15-2021 Test Performed by [facility], [address] [place], [place] [id number] [place] [address] LAB Glucose [Mass/Vol] 212 mg/dL High 70 - 100 mg/dL [facility] Comment on above: Test performed by gl ucose meter. Results may be 10%-15% lower than serum/plasma values. (CLIA ID [id number]) Interpretation and review of laboratory results Abnormal [facility] Test Performed by [facility], [address] [place], [place] [id number] [place] [address] LAB [facility] Test Performed by [facility], [address] LAB Glucose [Mass/Vol] 226 mg/dL High 70 - 100 mg/dL [facility] Comment on above: Test performed by gl ucose meter. Results may be 10%-15% lower than serum/plasma values. (CLIA ID [id number]) Interpretation and review of laboratory results Abnormal [facility] by [facility], [address], [place], [place] [address] [facility] LAB [facility] POCT GlucoseOrdered By: Cara Garcia on 12-15-2021 Glucose [Mass/Vol] 185 mg/dL High 70 - 100 mg/dL [facility] Work Phone: Comment on above: Test performed by gl ucose meter. Results may be 10%-15% lower than serum/plasma values. (CLIA ID [id number]) Interpretation and review of laboratory results Abnormal [facility] Work Phone: [facility] Work Phone: Procalcitoninon 12-15-2021 Procalcitonin 0.55 ng/mL High 0.00-0.09 [facility] Comment on above: Performed By: #### B GLU #### [facility] [address] [place] [address] Interpretation See Below [facility] Comment on above: PCT <0.50 = Low risk of severe sepsis and/or septic shock. PCT >2.00 = High risk of severe sepsis and/or septic shock. Interpretation and review of laboratory results Abnormal [facility] Procalcitonin 0.55 ng/mL High 0.00 - 0.09 ng/mL [facility] Test Performed by [facility], [address] [place] [id number] [place] [address] LAB [facility] Add On Lab Teston 12-14-2021 Add On Accepted [facility] Comment on above: Specimen available & acceptable for analysis. Add on test from HISon 12-14 Add on test from HIS Accepted Normal [facility] Comment on above: Result Comment: Spec imen available & acceptable for analysis. Performed By: #### B NP3, CMP3, HEMDF #### [facility] [address] [place] [address] Brain Natriuretic Peptideon 12-14-2021 Interpretation and review of laboratory results Abnormal [facility] Natriuretic peptide B (Bld) [Mass/Vol] 02524 pg/mL High 0 - 450 pg/mL [facility] Test Performed by [facility], [address], [place], [place] [address] [facility] LAB [facility] CBC with Auto Differentialon 12-14-2021 Absolute Baso # 0.0 10*3/uL 0.0 - 0.2 10*3/uL [facility] Absolute Neut # 7.7 10*3/uL High 1.8 - 7.0 10*3/uL [facility] Basophils/100 WBC (Bld) 0.5 % 0.0 - 2.0 % [facility] Eosinophils (Bld) [#/Vol] 0.1 10*3/uL 0. 0 - 0.5 10*3/uL [facility] Eosinophils/100 WBC (Bld) 1.3 % 1.0 - 6.0 % [facility] Granulocytes/100 WBC (Bld) 79.5 % 40.0 - 80.0 % [facility] Hematocrit (Bld) [Volume fraction] 37.2 % 35.0 - 47.0 % [facility] Hemoglobin.gastrointestin al spec 1 Ql (Stl) 12.5 g/dL 11.7 - 16.0 g/dL [facility] Interpretation and review of laboratory results Abnormal [facility] Lymphocytes (Bld) [#/Vol] 0.7 10*3/uL Low 1. 0 - 4.3 10*3/uL [facility] Lymphocytes/100 WBC (Bld) 7.5 % Low 20 .0 - 40.0 % [facility] MCH (RBC) [Entitic mass] 33.3 pg 26. 0 - 34.0 pg [facility] MCHC (RBC) [Mass/Vol] 33.7 % 32.0 - 36.0 % [facility] MCV (RBC) [Entitic vol] 98.9 fL High 79.0 - 98.0 fL [facility] Monocytes (Bld) [#/Vol] 1.1 10*3/uL High 0.0 - 0.8 10*3/uL [facility] Monocytes/100 WBC (Bld) 11.2 % High 2.0 - 10.0 % [facility] Platelet distribution width (Bld) [Ratio] 13.8 % 11.5 - 14.5 % [facility] Platelet mean volume (Bld) [Entitic vol] 10.5 fL 7.4 - 12.4 fL [facility] Comment on above: MPV is a calculated measurement using platelet volume ratio. Platelets (Bld) [#/Vol] 85 10*3/uL Low 140 - 440 10*3/uL [facility] RBC (Bld) [#/Vol] 3.76 10*6/uL Low 3.80 - 5.2 0 10*6/uL [facility] WBC (Bld) [#/Vol] 9.7 10*3/uL 3.6 - 10.7 10*3/uL [facility] Test Performed by [facility], [address] [place], [place] [id number] [place] [address] LAB [facility] Absolute Baso # 0.0 10*3/uL 0.0 - 0.2 10*3/uL [facility] Absolute Neut # 7.8 10*3/uL High 1.8 - 7.0 10*3/uL [facility] Basophils/100 WBC (Bld) 0.4 % 0.0 - 2.0 % [facility] Eosinophils (Bld) [#/Vol] 0.0 10*3/uL 0. 0 - 0.5 10*3/uL [facility] Eosinophils/100 WBC (Bld) 0.5 % Low 1.0 - 6.0 % [facility] Granulocytes/100 WBC (Bld) 82.9 % High 40.0 - 80.0 % [facility] Hematocrit (Bld) [Volume fraction] 30.4 % Low 35.0 - 47.0 % [facility] Hemoglobin.gastrointestin al spec 1 Ql (Stl) 10.6 g/dL Low 11.7 - 16.0 g/dL [facility] Interpretation and review of laboratory results Abnormal [facility] Lymphocytes (Bld) [#/Vol] 0.7 10*3/uL Low 1. 0 - 4.3 10*3/uL [facility] Lymphocytes/100 WBC (Bld) 7.5 % Low 20 .0 - 40.0 % [facility] MCH (RBC) [Entitic mass] 34.0 pg 26. 0 - 34.0 pg [facility] MCHC (RBC) [Mass/Vol] 34.8 % 32.0 - 36.0 % [facility] MCV (RBC) [Entitic vol] 97.9 fL 79.0 - 98.0 fL [facility] Monocytes (Bld) [#/Vol] 0.8 10*3/uL 0.0 - 0.8 10*3/uL [facility] Monocytes/100 WBC (Bld) 8.7 % 2.0 - 10.0 % [facility] Platelet distribution width (Bld) [Ratio] 14.0 % 11.5 - 14.5 % [facility] Platelet mean volume (Bld) [Entitic vol] 10.5 fL 7.4 - 12.4 fL [facility] Comment on above: MPV is a calculated measurement using platelet volume ratio. Platelets (Bld) [#/Vol] 95 10*3/uL Low 140 - 440 10*3/uL [facility] Comment on above: Occasional fibrin st rands noted on smear, no clot detected in tube, may affect plate count, suggest repeat draw. RBC (Bld) [#/Vol] 3.11 10*6/uL Low 3.80 - 5.2 0 10*6/uL [facility] WBC (Bld) [#/Vol] 9.4 10*3/uL 3.6 - 10.7 10*3/uL [facility] CR Chest Portableon 12-15-19 22 CR Chest Portable Patient Name: MIKEL WINSTON Diagnostic Radiology ACCESSION EXAM DATE/TIME PROCEDURE ORDERING PROVIDER [id number] 12/14/2021 18:24 EDT CR Chest Portable MD GONZALEZ PRAMOD CPT code 99814 Reason For Exam (CR Chest Portable) SOB Report SINGLE FRONTAL VIEW OF THE CHEST CLINICAL INDICATION: SOB TECHNIQUE: Single frontal view of the chest COMPARISON: 08/25/2019 FINDINGS: Status post sternotomy. Mild cardiac enlargement. Vascular congestion with interstitial edema and right basilar airspace density likely edema. IMPRESSION: 1. Congestive heart failure. Interstitial edema and vascular congestion. Possible airspace edema right lung base, but follow-up recommended. Report Dictated on Workstation: ZACK Final Dictating Physician: MD SERNA JOHN R Signed Date and Time: 12/14/2021 7:09 pm Signed by: MD SERNA JOHN R Transcribed Date and Time: 12/14/2021 7:[address] [facility] Comp Metabolic Panelon 12-14 ALP [Catalytic activity/Vol] 94 U/L Normal 38-[address] [facility] Comment on above: Performed By: #### B GLU #### [facility] [address] [place] [address] ALT [Catalytic activity/Vol] 32 U/L Normal 0-[address] [facility] Comment on above: Result Comment: The ALT test is performed by an updated assay method. Please note that the reference intervals have been changed and are now sex specific. Performed By: #### B GLU #### [facility] [address] [place] [address] AST [Catalytic activity/Vol] 63 U/L High 15-[address] [facility] Comment on above: Performed By: #### B GLU #### [facility] [address] [place] [address] Bilirubin [Mass/Vol] 1.4 mg/dL High 0.2-1.3 [facility] Comment on above: Performed By: #### B GLU #### [facility] [address] [place] [address] Calcium [Mass/Vol] 9.2 mg/dL Normal 8.4-10.[address] [facility] Comment on above: Performed By: #### B GLU #### [facility] [address] [place] [address] Glucose [Mass/Vol] 211 mg/dL High 70-[address] [facility] Comment on above: Performed By: #### B GLU #### [facility] [address] [place] [address] Protein [Mass/Vol] 7.0 g/dL Normal 6.3-8.[address] [facility] Comment on above: Performed By: #### B GLU #### [facility] [address] [place] [address] Urea nitrogen [Mass/Vol] 24 mg/dL High 9-[address] [facility] Comment on above: Performed By: #### B GLU #### [facility] [address] [place] [address] Anion gap [Moles/Vol] 7 mmol/L Normal 3-13 [facility] Comment on above: Performed By: #### B GLU #### [facility] [address] [place] [id number] CO2 [Moles/Vol] 21 mmol/L Low 22-30 [facility] Comment on above: Performed By: #### B GLU #### [facility] [address] [place] [id number] Creatinine [Mass/Vol] 1.03 mg/dL Normal 0.52-1.25 [facility] Comment on above: Performed By: #### B GLU #### [facility] [address] [place] [address] GFR/1.73 sq M.predicted among blacks MDRD (S/P/Bld) [Vol rate/Area] 61.0 mL/min/{1.73_m2} Normal >[address] [facility] Comment on above: Performed By: #### B GLU #### [facility] [address] [place] [address] GFR/1.73 sq M.predicted among non-blacks MDRD (S/P/Bld) [Vol rate/Area] 52.6 mL/min/{1.73_m2} Abnormal >[address] [facility] Comment on above: Result Comment: KDIG O guidelines provide the following GFR categories: Stage GFR(ml/min/1.73 m2) Terms G1 >=90 Normal or high G2 60-89 Mildly decreased* G3a 45-59 Mildly to moderately decreased G3b 30-44 Moderately to severely decreased G4 15-29 Severely decreased G5 <15 Kidney failure *Relative to young adult level. In the absence of evidence of kidney damage, neither GFR category G1 nor G2 fulfill the criteria for CKD. The CKD-EPI equation is validated in individuals 18 years of age and older. Currently the best equation for estimating glomerular filtration rate (GFR) from serum creatinine in children is the Bedside Keller equation. It is less accurate in patients with extremes of muscle mass, restriction of dietary protein, ingestion of creatine, extra-renal metabolism of creatinine, or treatment with medications that affect renal tubular creatinine secretion. Performed By: #### B GLU #### [facility] [address] [place] [id number] Albumin [Mass/Vol] 3.5 g/dL Normal 3.5-5.[address] [facility] Comment on above: Performed By: #### B GLU #### [facility] [address] [place] [address] Potassium [Moles/Vol] 3.8 mmol/L Normal 3.5-5.1 [facility] Comment on above: Performed By: #### B GLU #### [facility] [address] [place] [address] Sodium [Moles/Vol] 136 mmol/L Normal 135-[address] [facility] Comment on above: Performed By: #### B GLU #### [facility] [address] [place] [address] Chloride [Moles/Vol] 108 mmol/L High 98-107 [facility] Comment on above: Performed By: #### B GLU #### [facility] [address] [place] [address] Comp Panel with Mg Reflexon 12-14-2021 ALP [Catalytic activity/Vol] 56 U/L Normal 38-[address] [facility] Comment on above: Order Comment: SLIGH T HEMOLYSIS Performed By: #### B GLU #### [facility] [address] [place] [address] ALT [Catalytic activity/Vol] 26 U/L Normal 0-[address] [facility] Comment on above: Order Comment: SLIGH T HEMOLYSIS Result Comment: The ALT test is performed by an updated assay method. Please note that the reference intervals have been changed and are now sex specific. Performed By: #### B GLU #### [facility] [address] [place] [address] Calcium [Mass/Vol] 9.3 mg/dL Normal 8.4-10.[address] [facility] Comment on above: Order Comment: SLIGH T HEMOLYSIS Performed By: #### B GLU #### [facility] [address] [place] [address] Glucose [Mass/Vol] 157 mg/dL High 70-[address] [facility] Comment on above: Order Comment: SLIGH T HEMOLYSIS Performed By: #### B GLU #### [facility] [address] [place] [address] Urea nitrogen [Mass/Vol] 29 mg/dL High 9-[address] [facility] Comment on above: Order Comment: SLIGH T HEMOLYSIS Performed By: #### B GLU #### [facility] [address] [place] [address] Anion gap [Moles/Vol] 7 mmol/L Normal 3-13 [facility] Comment on above: Order Comment: SLIGH T HEMOLYSIS Performed By: #### B GLU #### [facility] [address] [place] [address] AST [Catalytic activity/Vol] 53 U/L High 15-[address] [facility] Comment on above: Order Comment: SLIGH T HEMOLYSIS Performed By: #### B GLU #### [facility] [address] [place] [address] Bilirubin [Mass/Vol] 1.9 mg/dL High 0.2-1.3 [facility] Comment on above: Order Comment: SLIGH T HEMOLYSIS Performed By: #### B GLU #### [facility] [address] [place] [address] CO2 [Moles/Vol] 21 mmol/L Low 22-30 [facility] Comment on above: Order Comment: SLIGH T HEMOLYSIS Performed By: #### B GLU #### [facility] [address] [place] [address] Creatinine [Mass/Vol] 0.97 mg/dL Normal 0.52-1.25 [facility] Comment on above: Order Comment: SLIGH T HEMOLYSIS Performed By: #### B GLU #### [facility] [address] [place] [address] GFR/1.73 sq M.predicted among blacks MDRD (S/P/Bld) [Vol rate/Area] 65.6 mL/min/{1.73_m2} Normal >[address] [facility] Comment on above: Order Comment: SLIGH T HEMOLYSIS Performed By: #### B GLU #### [facility] [address] [place] [address] GFR/1.73 sq M.predicted among non-blacks MDRD (S/P/Bld) [Vol rate/Area] 56.6 mL/min/{1.73_m2} Abnormal >[address] [facility] Comment on above: Order Comment: SLIGH T HEMOLYSIS Result Comment: KDIG O guidelines provide the following GFR categories: Stage GFR(ml/min/1.73 m2) Terms G1 >=90 Normal or high G2 60-89 Mildly decreased* G3a 45-59 Mildly to moderately decreased G3b 30-44 Moderately to severely decreased G4 15-29 Severely decreased G5 <15 Kidney failure *Relative to young adult level. In the absence of evidence of kidney damage, neither GFR category G1 nor G2 fulfill the criteria for CKD. The CKD-EPI equation is validated in individuals 18 years of age and older. Currently the best equation for estimating glomerular filtration rate (GFR) from serum creatinine in children is the Bedside Keller equation. It is less accurate in patients with extremes of muscle mass, restriction of dietary protein, ingestion of creatine, extra-renal metabolism of creatinine, or treatment with medications that affect renal tubular creatinine secretion. Performed By: #### B GLU #### [facility] [address] [place] [id number] Protein [Mass/Vol] 6.2 g/dL Low 6.3-8.[address] [facility] Comment on above: Order Comment: SLIGH T HEMOLYSIS Performed By: #### B GLU #### [facility] [address] [place] [address] Potassium [Moles/Vol] 3.6 mmol/L Normal 3.5-5.1 [facility] Comment on above: Order Comment: SLIGH T HEMOLYSIS Performed By: #### B GLU #### [facility] [address] [place] [address] Sodium [Moles/Vol] 139 mmol/L Normal 135-[address] [facility] Comment on above: Order Comment: SLIGH T HEMOLYSIS Performed By: #### B GLU #### [facility] [address] [place] [address] Albumin [Mass/Vol] 3.2 g/dL Low 3.5-5.[address] [facility] Comment on above: Order Comment: SLIGH T HEMOLYSIS Performed By: #### B GLU #### [facility] [address] [place] [address] Chloride [Moles/Vol] 111 mmol/L High 98-107 [facility] Comment on above: Order Comment: SLIGH T HEMOLYSIS Performed By: #### B GLU #### [facility] [address] [place] [address] Comprehensive Metabolic Pane smith 12-14-2021 Albumin [Mass/Vol] 3.5 g/dL 3.5 - 5.0 g/dL [facility] ALP (Bld) [Catalytic activity/Vol] 94 U/L 38 - 126 U/L [facility] ALT [Catalytic activity/Vol] 32 U/L 0 - 34 U/L [facility] Comment on above: The ALT test is perf ormed by an updated assay method. Please note that the reference intervals have been changed and are now sex specific. Anion gap [Moles/Vol] 7 mmol/L 3 - 13 mmol/L [facility] AST [Catalytic activity/Vol] 63 U/L High 15 - 46 U/L [facility] Bilirubin [Mass/Vol] 1.4 mg/dL High 0.2 - 1 .3 mg/dL [facility] Calcium [Mass/Vol] 9.2 mg/dL 8.4 - 10. 4 mg/dL [facility] Chloride [Moles/Vol] 108 mmol/L High 98 - 10 7 mmol/L [facility] CO2 [Moles/Vol] 21 mmol/L Low 22 - 30 mmol/L [facility] Creatinine [Mass/Vol] 1.03 mg/dL 0.52 - 1.25 mg/dL [facility] EGFR IF NonAfrican Mosotho 52.6 mL/min Abnormal >60 [facility] Comment on above: KDIGO guidelines pro vide the following GFR categories: Stage GFR(ml/min/1.73 m2) Terms G1 >=90 Normal or high G2 60-89 Mildly decreased* G3a 45-59 Mildly to moderately decreased G3b 30-44 Moderately to severely decreased G4 15-29 Severely decreased G5 <15 Kidney failure *Relative to young adult level. In the absence of evidence of kidney damage, neither GFR category G1 nor G2 fulfill the criteria for CKD. The CKD-EPI equation is validated in individuals 18 years of age and older. Currently the best equation for estimating glomerular filtration rate (GFR) from serum creatinine in children is the Bedside Keller equation. It is less accurate in patients with extremes of muscle mass, restriction of dietary protein, ingestion of creatine, extra-renal metabolism of creatinine, or treatment with medications that affect renal tubular creatinine secretion. Free PSA/Total PSA [Mass fraction] 7.0 g/dL 6.3 - 8.2 g/dL [facility] GFR/1.73 sq M.predicted among blacks MDRD (S/P/Bld) [Vol rate/Area] 61.0 mL/min/{1.73_m2} >60 [facility] Glucose [Mass/Vol] 211 mg/dL High 70 - 100 mg/dL [facility] Interpretation and review of laboratory results Abnormal [facility] Potassium [Moles/Vol] 3.8 mmol/L 3.5 - 5.1 mmol/L [facility] Sodium [Moles/Vol] 136 mmol/L 135 - 145 mmol/L [facility] Urea nitrogen (BldV) [Mass/Vol] 24 mg/dL High 9 - 20 mg/dL [facility] Comprehensive Metabolic Pane l w/ Reflex to MGon 12-14-2021 Albumin [Mass/Vol] 3.2 g/dL Low 3.5 - 5.0 g/dL [facility] ALP (Bld) [Catalytic activity/Vol] 56 U/L 38 - 126 U/L [facility] ALT [Catalytic activity/Vol] 26 U/L 0 - 34 U/L [facility] Comment on above: The ALT test is perf ormed by an updated assay method. Please note that the reference intervals have been changed and are now sex specific. Anion gap [Moles/Vol] 7 mmol/L 3 - 13 mmol/L [facility] AST [Catalytic activity/Vol] 53 U/L High 15 - 46 U/L [facility] Bilirubin [Mass/Vol] 1.9 mg/dL High 0.2 - 1 .3 mg/dL [facility] Calcium [Mass/Vol] 9.3 mg/dL 8.4 - 10. 4 mg/dL [facility] Chloride [Moles/Vol] 111 mmol/L High 98 - 10 7 mmol/L [facility] CO2 [Moles/Vol] 21 mmol/L Low 22 - 30 mmol/L [facility] Creatinine [Mass/Vol] 0.97 mg/dL 0.52 - 1.25 mg/dL [facility] EGFR IF NonAfrican [place]otho 56.6 mL/min Abnormal >60 [facility] Comment on above: KDIGO guidelines pro vide the following GFR categories: Stage GFR(ml/min/1.73 m2) Terms G1 >=90 Normal or high G2 60-89 Mildly decreased* G3a 45-59 Mildly to moderately decreased G3b 30-44 Moderately to severely decreased G4 15-29 Severely decreased G5 <15 Kidney failure *Relative to young adult level. In the absence of evidence of kidney damage, neither GFR category G1 nor G2 fulfill the criteria for CKD. The CKD-EPI equation is validated in individuals 18 years of age and older. Currently the best equation for estimating glomerular filtration rate (GFR) from serum creatinine in children is the Bedside Keller equation. It is less accurate in patients with extremes of muscle mass, restriction of dietary protein, ingestion of creatine, extra-renal metabolism of creatinine, or treatment with medications that affect renal tubular creatinine secretion. Free PSA/Total PSA [Mass fraction] 6.2 g/dL Low 6.3 - 8.2 g/dL [facility] GFR/1.73 sq M.predicted among blacks MDRD (S/P/Bld) [Vol rate/Area] 65.6 mL/min/{1.73_m2} >60 [facility] Glucose [Mass/Vol] 157 mg/dL High 70 - 100 mg/dL [facility] Interpretation and review of laboratory results Abnormal [facility] Potassium [Moles/Vol] 3.6 mmol/L 3.5 - 5.1 mmol/L [facility] Sodium [Moles/Vol] 139 mmol/L 135 - 145 mmol/L [facility] Urea nitrogen (BldV) [Mass/Vol] 29 mg/dL High 9 - 20 mg/dL [facility] Test Performed by [facility], [address] [place], [place] [address] SLIGHT HEMOLYSIS [facility] Glucose,Bedsideon 12-14-2021 Glucose [Mass/Vol] 163 mg/dL High 70-[address] [facility] Comment on above: Result Comment: Test performed by glucose meter. Results may be 10%-15% lower than serum/plasma values. (CLIA ID [id number]) Performed By: #### B GLU #### [facility] [address] [place] [address] Glucose [Mass/Vol] 214 mg/dL High 70-[address] [facility] Comment on above: Result Comment: Test performed by glucose meter. Results may be 10%-15% lower than serum/plasma values. (CLIA ID [id number]) Performed By: #### B NP3, CMP3, HEMDF #### [facility] [address] [place] [address] Glucose [Mass/Vol] 146 mg/dL High 70-[address] [facility] Comment on above: Result Comment: Test performed by glucose meter. Results may be 10%-15% lower than serum/plasma values. (CLIA ID [id number]) Performed By: #### B GLU #### [facility] [address] [place] [address] Hemogram w/ Autodiffon 12-14 Abs Baso Cnt 0.0 10*3/uL Normal 0.0-0.2 [facility] Comment on above: Performed By: #### B GLU #### [facility] [address] [place] [address] Abs Neutrophile Cnt 7.7 10*3/uL High 1.8-7.0 [facility] Comment on above: Performed By: #### B GLU #### [facility] [address] [place] [id number] Basophils/100 WBC (Bld) 0.5 % Normal 0.0-2.0 [facility] Comment on above: Performed By: #### B GLU #### [facility] [address] [place] [id number] Eosinophils (Bld) [#/Vol] 0.1 10*3/uL Normal 0.0-0.[address] [facility] Comment on above: Performed By: #### B GLU #### [facility] [address] [place] [id number] Eosinophils/100 WBC (Bld) 1.3 % Normal 1.0-6.[address] [facility] Comment on above: Performed By: #### B GLU #### [facility] [address] [place] [address] Erythrocyte distribution width (RBC) [Ratio] 13.8 % Normal 11.5-14.[address] [facility] Comment on above: Performed By: #### B GLU #### [facility] [address] [place] [address] Granulocytes/100 WBC (Bld) 79.5 % Normal 40.0-80.[address] [facility] Comment on above: Performed By: #### B GLU #### [facility] [address] [place] [address] Hematocrit (Bld) [Volume fraction] 37.2 % Normal 35.0-47.[address] [facility] Comment on above: Performed By: #### B GLU #### [facility] [address] [place] [address] Hemoglobin (Bld) [Mass/Vol] 12.5 g/dL Normal 11.7-16.[address] [facility] Comment on above: Performed By: #### B GLU #### [facility] [address] [place] [address] Lymphocytes (Bld) [#/Vol] 0.7 10*3/uL Low 1.0-4.[address] [facility] Comment on above: Performed By: #### B GLU #### [facility] [address] [place] [address] Lymphocytes/100 WBC (Bld) 7.5 % Low 20.0-40.[address] [facility] Comment on above: Performed By: #### B GLU #### [facility] [address] [place] [address] MCH (RBC) [Entitic mass] 33.3 pg Normal 26.0-34.[address] [facility] Comment on above: Performed By: #### B GLU #### [facility] [address] [place] [address] MCHC 33.7 % Normal 32.0-36.[address] [facility] Comment on above: Performed By: #### B GLU #### [facility] [address] [place] [address] MCV (RBC) [Entitic vol] 98.9 fL High 79.0-98.0 S [facility] Comment on above: Performed By: #### B GLU #### [facility] [address] [place] [address] Monocytes (Bld) [#/Vol] 1.1 10*3/uL High 0.0-0.[address] [facility] Comment on above: Performed By: #### B GLU #### [facility] [address] [place] [address] Monocytes/100 WBC (Bld) 11.2 % High 2.0-10.0 [facility] Comment on above: Performed By: #### B GLU #### [facility] [address] [place] [address] Platelet mean volume (Bld) [Entitic vol] 10.5 fL Normal 7.4-12.[address] [facility] Comment on above: Result Comment: MPV is a calculated measurement using platelet volume ratio. Performed By: #### B GLU #### [facility] [address] [place] [address] Platelets (Bld) [#/Vol] 85 10*3/uL Low 140-440 S [facility] Comment on above: Performed By: #### B GLU #### [place] [address] [place] [address] RBC (Bld) [#/Vol] 3.76 10*6/uL Low 3.80-5.[address] [facility] Comment on above: Performed By: #### B GLU #### [facility] [address] [place] [address] WBC (Bld) [#/Vol] 9.7 10*3/uL Normal 3.6-10.[address] [facility] Comment on above: Performed By: #### B GLU #### [facility] [address] [place] [address] Platelets (Bld) [#/Vol] 95 10*3/uL Low 140-440 [facility] Comment on above: Result Comment: Occa sional fibrin strands noted on smear, no clot detected in tube, may affect plate count, suggest repeat draw. Performed By: #### B GLU #### [facility] [address] [place] [address] Abs Baso Cnt 0.0 10*3/uL Normal 0.0-0.2 [facility] Comment on above: Performed By: #### B GLU #### [facility] [address] [place] [address] Abs Neutrophile Cnt 7.8 10*3/uL High 1.8-7.0 [facility] Comment on above: Performed By: #### B GLU #### [facility] [address] [place] [address] Basophils/100 WBC (Bld) 0.4 % Normal 0.0-2.0 [facility] Comment on above: Performed By: #### B GLU #### [facility] [address] [place] [address] Eosinophils (Bld) [#/Vol] 0.0 10*3/uL Normal 0.0-0.[address] [facility] Comment on above: Performed By: #### B GLU #### [facility] [address] [place] [address] Eosinophils/100 WBC (Bld) 0.5 % Low 1.0-6.[address] [facility] Comment on above: Performed By: #### B GLU #### [facility] [address] [place] [address] Erythrocyte distribution width (RBC) [Ratio] 14.0 % Normal 11.5-14.[address] [facility] Comment on above: Performed By: #### B GLU #### [facility] [address] [place] [address] Granulocytes/100 WBC (Bld) 82.9 % High 40.0-80.[address] [facility] Comment on above: Performed By: #### B GLU #### [facility] [address] [place] [address] Hematocrit (Bld) [Volume fraction] 30.4 % Low 35.0-47.[address] [facility] Comment on above: Performed By: #### B GLU #### [facility] [address] [place] [address] Hemoglobin (Bld) [Mass/Vol] 10.6 g/dL Low 11.7-16.[address] [facility] Comment on above: Performed By: #### B GLU #### [facility] [address] [place] [address] Lymphocytes (Bld) [#/Vol] 0.7 10*3/uL Low 1.0-4.[address] [facility] Comment on above: Performed By: #### B GLU #### [facility] [address] [place] [address] Lymphocytes/100 WBC (Bld) 7.5 % Low 20.0-40.[address] [facility] Comment on above: Performed By: #### B GLU #### [facility] [address] [place] [address] MCH (RBC) [Entitic mass] 34.0 pg Normal 26.0-34.[address] [facility] Comment on above: Performed By: #### B GLU #### [facility] [address] [place] [address] MCHC 34.8 % Normal 32.0-36.[address] [facility] Comment on above: Performed By: #### B GLU #### [facility] [address] [place] [address] MCV (RBC) [Entitic vol] 97.9 fL Normal 79.0-98.0 S [facility] Comment on above: Performed By: #### B GLU #### [facility] [address] [place] [address] Monocytes (Bld) [#/Vol] 0.8 10*3/uL Normal 0.0-0.[address] [facility] Comment on above: Performed By: #### B GLU #### [facility] [address] [place] [address] Monocytes/100 WBC (Bld) 8.7 % Normal 2.0-10.0 [facility] Comment on above: Performed By: #### B GLU #### [facility] [address] [place] [address] Platelet mean volume (Bld) [Entitic vol] 10.5 fL Normal 7.4-12.[address] [facility] Comment on above: Result Comment: MPV is a calculated measurement using platelet volume ratio. Performed By: #### B GLU #### [facility] [address] [place] [address] RBC (Bld) [#/Vol] 3.11 10*6/uL Low 3.80-5.[address] [facility] Comment on above: Performed By: #### B GLU #### [facility] [address] [place] [address] WBC (Bld) [#/Vol] 9.4 10*3/uL Normal 3.6-10.[address] [facility] Comment on above: Performed By: #### B GLU #### [facility] [address] [place] [id number] Lactic Acidon 12-14-2021 Lactate [Moles/Vol] 1.6 mmol/L Normal 0.7-2.[address] [facility] Comment on above: Performed By: #### B GLU #### [facility] [address] [place] [id number] Lactate [Moles/Vol] 1.6 mmol/L 0.7 - 2. 0 mmol/L [facility] Lactic Acid, Sepsison 2021 Lactate [Moles/Vol] 1.7 mmol/L Normal 0.7-2.[address] [facility] Comment on above: Performed By: #### B GLU #### [facility] [address] [place] [id number] NT pro BNPon 12-14-2021 Natriuretic peptide B (Bld) [Mass/Vol] 18789 pg/mL High 0-[address] [facility] Comment on above: Performed By: #### B GLU #### [facility] [address] [place] [id number] No Panel Informationon 12-14 Test Performed by [facility], [address] [place], [place] [id number] [place] [address] LAB [facility] Test Performed by [facility], [address] LAB [facility] POCT Glucoseon 12-14-2021 Glucose [Mass/Vol] 163 mg/dL High 70 - 100 mg/dL [facility] Comment on above: Test performed by gl ucose meter. Results may be 10%-15% lower than serum/plasma values. (CLIA ID [id number]) Interpretation and review of laboratory results Abnormal [facility] Test Performed by [facility], [address] [place], [place] [id number] [place] [address] LAB [facility] Glucose [Mass/Vol] 214 mg/dL High 70 - 100 mg/dL [facility] Comment on above: Test performed by gl ucose meter. Results may be 10%-15% lower than serum/plasma values. (CLIA ID [id number]) Interpretation and review of laboratory results Abnormal [facility] Test Performed by [facility], [address] [place], [place] [id number] [place] [address] LAB [facility] Test Performed by [facility], [address] [place], [place] [address] [facility] POCT GlucoseOrdered By: Robe Villegas on 12-14-2021 Glucose [Mass/Vol] 146 mg/dL High 70 - 100 mg/dL [facility] Work Phone: Comment on above: Test performed by gl ucose meter. Results may be 10%-15% lower than serum/plasma values. (CLIA ID [id number]) Interpretation and review of laboratory results Abnormal [facility] Work Phone: [facility] Work Phone: Procalcitoninon 12-14-2021 Interpretation See Below Normal [facility] Comment on above: Result Comment: PCT <0.50 = Low risk of severe sepsis and/or septic shock. PCT >2.00 = High risk of severe sepsis and/or septic shock. Performed By: #### B GLU #### [facility] [address] [place] [address] RBC MORPHOLOGYon 12-14-2021 RBC (Bld) [#/Vol] Normal [facility] RBC Morphologyon 12-14-2021 RBC morphology finding Nom (Bld) Normal Normal [facility] Comment on above: Performed By: #### B GLU #### [facility] [address] [place] [address] VL LOWER EXTREMITY BILATERAL VENOUS DUPLEXon 12-14-2021 [facility] Lower Extremity Venous Duplex Report Patient Ravindra : 1945 Study 12/14/2021 Name: Mikel Davis (76yrs) Date: Age: 76 Account: [id number] Gender: F Loc: 260 BP: Ordering Physician: Terence Gonzalez Event Attendant: Adrienne Williamson RDMS, RVT Interpreting Physician: Clinton Dove MD Location: [facility] Indications: Edema of the bilateral legs. Conclusions 1. There is no evidence of acute deep or superficial venous thrombosis noted in the right lower extremity. 2. There is no evidence of acute deep or superficial venous thrombosis noted in the left lower extremity. History: Risk factors: Hypercoagulable state. Immobility. Age over 75 years. Study data: Complete lower extremity venous duplex evaluation. Grayscale 2D imaging, color Doppler imaging, and spectral Doppler analysis. Location: Bedside. Objective: Diagnostic evaluation. Procedure: A vascular evaluation was performed with the patient in the supine position. Images were obtained using a Deligics vascular ultrasound machine. The study was technically limited due to limited access to patient and calcification. Venous flow and imaging: + ------+-------+----- + +Location +Overall+Properties + + ------+-------+----- + +R CFV +Patent +Normal phasicity; spontaneous; + + + +normal augmentation; compressible + + ------+-------+----- + +R saphenofemoral junction+Patent +Compressible + + ------+-------+----- + +R profunda femoral +Patent + + + ------+-------+----- + +R FV - prox. +Patent +Compressible + + ------+-------+----- + +R FV - mid +Patent +Normal phasicity; spontaneous; + + + +normal augmentation; compressible + + ------+-------+----- + +R FV - distal +Patent +Compressible + + ------+-------+----- + +R popliteal +Patent +Normal phasicity; spontaneous; + + + +normal augmentation; compressible + + ------+-------+----- + +R gastrocnemius +Patent +Compressible + + ------+-------+----- + +R PTV +Patent +Compressible + + ------+-------+----- + +R peroneal +Patent +Compressible + + ------+-------+----- + +R soleal +Patent +Compressible + + ------+-------+----- + +R GSV +Patent +Compressible + + ------+-------+----- + +L CFV +Patent +Normal phasicity; spontaneous; + + + +normal augmentation; compressible + + ------+-------+----- + +L saphenofemoral junction+Patent +Compressible + + ------+-------+----- + +L profunda femoral +Patent + + + ------+-------+----- + +L FV - prox. +Patent +Compressible + + ------+-------+----- + +L FV - mid +Patent +Normal phasicity; spontaneous; + + + +normal augmentation; compressible + + ------+-------+--- (more content not included)... [facility] CARDIOLOGY Clinton Dove MD - 12/14/2021 [facility] Lower Extremity Venous Duplex Report Patient DO RavindraB: 1945 Study 12/14/2021 Name: Mikel Davis (76yrs) Date: Age: 76 Account: [id number] Gender: F Loc: 260 BP: Ordering Physician: Terence Gonzalez Event Attendant: Adrienne Williamson RDMS, RVT Interpreting Physician: Clinton Dove MD Location: [facility] Indications: Edema of the bilateral legs. Conclusions 1. There is no evidence of acute deep or superficial venous thrombosis noted in the right lower extremity. 2. There is no evidence of acute deep or superficial venous thrombosis noted in the left lower extremity. History: Risk factors: Hypercoagulable state. Immobility. Age over 75 years. Study data: Complete lower extremity venous duplex evaluation. Grayscale 2D imaging, color Doppler imaging, and spectral Doppler analysis. Location: Bedside. Objective: Diagnostic evaluation. Procedure: A vascular evaluation was performed with the patient in the supine position. Images were obtained using a Deligics vascular ultrasound machine. The study was technically limited due to limited access to patient and calcification. Venous flow and imaging: + ------+-------+----- + +Location +Overall+Properties + + ------+-------+----- + +R CFV +Patent +Normal phasicity; spontaneous; + + + +normal augmentation; compressible + + ------+-------+----- + +R saphenofemoral junction+Patent +Compressible + + ------+-------+----- + +R profunda femoral +Patent + + + ------+-------+----- + +R FV - prox. +Patent +Compressible + + ------+-------+----- + +R FV - mid +Patent +Normal phasicity; spontaneous; + + + +normal augmentation; compressible + + ------+-------+----- + +R FV - distal +Patent +Compressible + + ------+-------+----- + +R popliteal +Patent +Normal phasicity; spontaneous; + + + +normal augmentation; compressible + + ------+-------+----- + +R gastrocnemius +Patent +Compressible + + ------+-------+----- + +R PTV +Patent +Compressible + + ------+-------+----- + +R peroneal +Patent +Compressible + + ------+-------+----- + +R soleal +Patent +Compressible + + ------+-------+----- + +R GSV +Patent +Compressible + + ------+-------+----- + +L CFV +Patent +Normal phasicity; spontaneous; + + + +normal augmentation; compressible + + ------+-------+----- + +L saphenofemoral junction+Patent +Compressible + + ------+-------+----- + +L profunda femoral +Patent + + + ------+-------+----- + +L FV - prox. +Patent +Compressible + + ------+-------+----- + +L FV - mid +Patent +Normal phasicity; spontaneous; + + + +normal augmentation; compressible + + ------+-------+----- + +L FV - distal +Patent +Compressible + + ------+-------+----- + +L popliteal +Patent +Normal phasicity; spontaneous; + + + +normal augmentation; compressible + + ------+-------+----- + +L gastrocnemius +Patent +Compressible + + ------+-------+----- + +L PTV +Patent +Compressible + + ------+-------+----- + +L peroneal +Patent +Compressible + + ------+-------+----- + +L soleal +Trent (more content not included)... [facility] Work Phone: VL LOWER EXTREMITY BILATERAL VENOUS DUPLEXOrdered By: Clinton Dove on 12-14-2021 [employer] Phone: VL Venous Duplex US Lower Ex t Bilateralon 12-14-2021 VL Venous Duplex US Lower Ext Bilateral Patient Name: MIKEL WINSTON Ultrasound ACCESSION EXAM DATE/TIME PROCEDURE ORDERING PROVIDER [id number] 12/14/2021 09:44 EDT VL Venous Duplex US MD GONZALEZ PRAMOD Lower Ext Bilateral CPT code 25534 Reason For Exam (VL Venous Duplex US Lower Ext Bilateral) LE edema Report [facility] Lower Extremity Venous Duplex Report Patient Ravindra : 1945 Study 12/14/2021 Name: Mikel Davis (76yrs) Date: Age: 76 Account: [id number] Gender: F Loc: 260 BP: Ordering Physician: Terence Gonzalez Event Attendant: Adrienne Williamson RDMS, RVT Interpreting Physician: Clinton Dove MD Location: [facility] Indications: Edema of the bilateral legs. Conclusions 1. There is no evidence of acute deep or superficial venous thrombosis noted in the right lower extremity. 2. There is no evidence of acute deep or superficial venous thrombosis noted in the left lower extremity. History: Risk factors: Hypercoagulable state. Immobility. Age over 75 years. Study data: Complete lower extremity venous duplex evaluation. Grayscale 2D imaging, color Doppler imaging, and spectral Doppler analysis. Location: Bedside. Objective: Diagnostic evaluation. Procedure: A vascular evaluation was performed with the patient in the supine position. Images were obtained using a Deligics vascular ultrasound machine. Ultrasound Report The study was technically limited due to limited access to patient and calcification. Venous flow and imaging: + ------+-------+----- + +Location +Overall+Properties + + ------+-------+----- + +R CFV +Patent +Normal phasicity; spontaneous; + + + +normal augmentation; compressible + + ------+-------+----- + +R saphenofemoral junction+Patent +Compressible + + ------+-------+----- + +R profunda femoral +Patent + + + ------+-------+----- + +R FV - prox. +Patent +Compressible + + ------+-------+----- + +R FV - mid +Patent +Normal phasicity; spontaneous; + + + +normal augmentation; compressible + + ------+-------+----- + +R FV - distal +Patent +Compressible + + ------+-------+----- + +R popliteal +Patent +Normal phasicity; spontaneous; + + + +normal augmentation; compressible + + ------+-------+----- + +R gastrocnemius +Patent +Compressible + + ------+-------+----- + +R PTV +Patent +Compressible + + ------+-------+----- + +R peroneal +Patent +Compressible + + ------+-------+----- + +R soleal +Patent +Compressible + + ------+-------+----- + +R GSV +Patent +Compressible + + ------+-------+----- + +L CFV +Patent +Normal phasicity; spontaneous; + + + +normal augmentation; compressible + + ------+-------+----- + +L saphenofemoral junction+Patent +Compressible + + ------+-------+----- + +L profunda femoral +Patent + + + ------+-------+----- + +L FV - prox. +Patent +Compressible + + ------+-------+----- + +L FV - mid +Patent +Normal phasicity; spontaneous; + + + +normal augmentation; compressible + + ------+-------+----- + +L FV - distal +Patent +Compressible + + ------+-------+----- + +L popliteal +Patent +Normal phasicity; spontaneous; + + + +normal augmentation; compressible + + ------+-------+----- + +L gastrocnemius +Patent +Compressible + + ------+-------+----- ----- (more content not included)... Normal [facility] XR CHEST PORTABLEon 12-15-19 Patient Name: MIKEL WINSTON Diagnostic Radiology ACCESSION EXAM DATE/TIME PROCEDURE ORDERING PROVIDER [id number] 12/14/2021 18:24 EDT CR Chest Portable MD GONZALEZ PRAMOD CPT code 56936 Reason For Exam (CR Chest Portable) SOB Report SINGLE FRONTAL VIEW OF THE CHEST CLINICAL INDICATION: SOB TECHNIQUE: Single frontal view of the chest COMPARISON: 08/25/2019 FINDINGS: Status post sternotomy. Mild cardiac enlargement. Vascular congestion with interstitial edema and right basilar airspace density likely edema. IMPRESSION: 1. Congestive heart failure. Interstitial edema and vascular congestion. Possible airspace edema right lung base, but follow-up recommended. Report Dictated on Workstation: [id number] --- Final --- Dictating Physician: MD SERNA JOHN R Signed Date and Time: 12/14/2021 7:09 pm Signed by: MD SERNA JOHN R Transcribed Date and Time: 12/14/2021 7:10 [facility] Clinton Serna MD - 12/14/2021 Patient Name: MIKEL WINSTON Diagnostic Radiology ACCESSION EXAM DATE/TIME PROCEDURE ORDERING PROVIDER [id number] 12/14/2021 18:24 EDT CR Chest Portable MD GONZALEZ PRAMOD CPT code 30595 Reason For Exam (CR Chest Portable) SOB Report SINGLE FRONTAL VIEW OF THE CHEST CLINICAL INDICATION: SOB TECHNIQUE: Single frontal view of the chest COMPARISON: 08/25/2019 FINDINGS: Status post sternotomy. Mild cardiac enlargement. Vascular congestion with interstitial edema and right basilar airspace density likely edema. IMPRESSION: 1. Congestive heart failure. Interstitial edema and vascular congestion. Possible airspace edema right lung base, but follow-up recommended. Report Dictated on Workstation: [id number] --- Final --- Dictating Physician: MD SERNA JOHN R Signed Date and Time: 12/14/2021 7:09 pm Signed by: MD SERNA JOHN R Transcribed Date and Time: 12/14/2021 7:10 [facility] Work Phone: Radiology Study observation (narrative) [facility] Work Phone: XR CHEST PORTABLEOrdered By: Clinton Serna on 12-14-2021 [facility] Work Phone: Add On Lab Teston 12-13-2021 Add On Accepted [facility] Comment on above: Specimen available & acceptable for analysis. Test Performed by [facility], [address] [place] [address] [facility] Add on test from HISon 12-13 Add on test from HIS Accepted Normal [facility] Comment on above: Result Comment: Spec imen available & acceptable for analysis. Performed By: #### A DDON #### [facility] [address] [place] [address] Basic Metabolic Panelon Calcium [Mass/Vol] 10.3 mg/dL Normal 8.4-10.[address] [facility] Comment on above: Performed By: #### B NP3, CMP3, HEMDF #### [facility] [address] [place] [address] Glucose [Mass/Vol] 181 mg/dL High 70-[address] [facility] Comment on above: Performed By: #### B NP3, CMP3, HEMDF #### [facility] [address] [place] [address] Urea nitrogen [Mass/Vol] 34 mg/dL High 9-[address] [facility] Comment on above: Performed By: #### B NP3, CMP3, HEMDF #### [facility] [address] [place] [address] Anion gap [Moles/Vol] 9 mmol/L Normal 3-13 [facility] Comment on above: Performed By: #### B NP3, CMP3, HEMDF #### [facility] [address] [place] [address] CO2 [Moles/Vol] 23 mmol/L Normal 22-30 [facility] Comment on above: Performed By: #### B NP3, CMP3, HEMDF #### [facility] [address] [place] [id number] Creatinine [Mass/Vol] 1.22 mg/dL Normal 0.52-1.25 [facility] Comment on above: Performed By: #### B NP3, CMP3, HEMDF #### [facility] [address] [place] [id number] GFR/1.73 sq M.predicted among blacks MDRD (S/P/Bld) [Vol rate/Area] 49.7 mL/min/{1.73_m2} Abnormal >[address] [facility] Comment on above: Performed By: #### B NP3, CMP3, HEMDF #### [facility] [address] [place] [id number] GFR/1.73 sq M.predicted among non-blacks MDRD (S/P/Bld) [Vol rate/Area] 42.9 mL/min/{1.73_m2} Abnormal >[address] [facility] Comment on above: Result Comment: KDIG O guidelines provide the following GFR categories: Stage GFR(ml/min/1.73 m2) Terms G1 >=90 Normal or high G2 60-89 Mildly decreased* G3a 45-59 Mildly to moderately decreased G3b 30-44 Moderately to severely decreased G4 15-29 Severely decreased G5 <15 Kidney failure *Relative to young adult level. In the absence of evidence of kidney damage, neither GFR category G1 nor G2 fulfill the criteria for CKD. The CKD-EPI equation is validated in individuals 18 years of age and older. Currently the best equation for estimating glomerular filtration rate (GFR) from serum creatinine in children is the Bedside Keller equation. It is less accurate in patients with extremes of muscle mass, restriction of dietary protein, ingestion of creatine, extra-renal metabolism of creatinine, or treatment with medications that affect renal tubular creatinine secretion. Performed By: #### B NP3, CMP3, HEMDF #### [facility] [address] [place] [id number] Potassium [Moles/Vol] 3.7 mmol/L Normal 3.5-5.1 [facility] Comment on above: Performed By: #### B NP3, CMP3, HEMDF #### [facility] [address] [place] [id number] Chloride [Moles/Vol] 110 mmol/L High 98-107 [facility] Comment on above: Performed By: #### B NP3, CMP3, HEMDF #### [facility] [address] [place] [address] Sodium [Moles/Vol] 141 mmol/L Normal 135-[address] [facility] Comment on above: Performed By: #### B NP3, CMP3, HEMDF #### [facility] [address] [place] [address] Anion gap [Moles/Vol] 9 mmol/L 3 - 13 mmol/L [facility] Calcium [Mass/Vol] 10.3 mg/dL 8.4 - 10. 4 mg/dL [facility] Chloride [Moles/Vol] 110 mmol/L High 98 - 10 7 mmol/L [facility] CO2 [Moles/Vol] 23 mmol/L 22 - 30 mmol/L [facility] Creatinine [Mass/Vol] 1.22 mg/dL 0.52 - 1.25 mg/dL [facility] EGFR IF NonAfrican [place] 42.9 mL/min Abnormal >60 [facility] Comment on above: KDIGO guidelines pro vide the following GFR categories: Stage GFR(ml/min/1.73 m2) Terms G1 >=90 Normal or high G2 60-89 Mildly decreased* G3a 45-59 Mildly to moderately decreased G3b 30-44 Moderately to severely decreased G4 15-29 Severely decreased G5 <15 Kidney failure *Relative to young adult level. In the absence of evidence of kidney damage, neither GFR category G1 nor G2 fulfill the criteria for CKD. The CKD-EPI equation is validated in individuals 18 years of age and older. Currently the best equation for estimating glomerular filtration rate (GFR) from serum creatinine in children is the Bedside Keller equation. It is less accurate in patients with extremes of muscle mass, restriction of dietary protein, ingestion of creatine, extra-renal metabolism of creatinine, or treatment with medications that affect renal tubular creatinine secretion. GFR/1.73 sq M.predicted among blacks MDRD (S/P/Bld) [Vol rate/Area] 49.7 mL/min/{1.73_m2} Abnormal >60 [facility] Glucose [Mass/Vol] 181 mg/dL High 70 - 100 mg/dL [facility] Interpretation and review of laboratory results Abnormal [facility] Potassium [Moles/Vol] 3.7 mmol/L 3.5 - 5.1 mmol/L [facility] Sodium [Moles/Vol] 141 mmol/L 135 - 145 mmol/L [facility] Urea nitrogen (BldV) [Mass/Vol] 34 mg/dL High 9 - 20 mg/dL [facility] Test Performed by [facility], [address], [place], [place] [address] [facility] CBC with Auto Differentialon 12-13-2021 Absolute Baso # 0.1 10*3/uL 0.0 - 0.2 10*3/uL [facility] Absolute Neut # 13.0 10*3/uL High 1.8 - 7.0 10*3/uL [facility] Basophils/100 WBC (Bld) 0.5 % 0.0 - 2.0 % [facility] Eosinophils (Bld) [#/Vol] 0.0 10*3/uL 0. 0 - 0.5 10*3/uL [facility] Eosinophils/100 WBC (Bld) 0.0 % Low 1.0 - 6.0 % [facility] Granulocytes/100 WBC (Bld) 85.9 % High 40.0 - 80.0 % [facility] Hematocrit (Bld) [Volume fraction] 34.3 % Low 35.0 - 47.0 % [facility] Hemoglobin.gastrointestin al spec 1 Ql (Stl) 11.7 g/dL 11.7 - 16.0 g/dL [facility] Interpretation and review of laboratory results Abnormal [facility] Lymphocytes (Bld) [#/Vol] 0.7 10*3/uL Low 1. 0 - 4.3 10*3/uL [facility] Lymphocytes/100 WBC (Bld) 4.3 % Low 20 .0 - 40.0 % [facility] MCH (RBC) [Entitic mass] 32.9 pg 26. 0 - 34.0 pg [facility] MCHC (RBC) [Mass/Vol] 34.1 % 32.0 - 36.0 % [facility] MCV (RBC) [Entitic vol] 96.6 fL 79.0 - 98.0 fL [facility] Monocytes (Bld) [#/Vol] 1.4 10*3/uL High 0.0 - 0.8 10*3/uL [facility] Monocytes/100 WBC (Bld) 9.3 % 2.0 - 10.0 % [facility] Platelet distribution width (Bld) [Ratio] 13.4 % 11.5 - 14.5 % [facility] Platelet mean volume (Bld) [Entitic vol] 10.3 fL 7.4 - 12.4 fL [facility] Comment on above: MPV is a calculated measurement using platelet volume ratio. Platelets (Bld) [#/Vol] 101 10*3/uL Low 140 - 440 10*3/uL [facility] RBC (Bld) [#/Vol] 3.55 10*6/uL Low 3.80 - 5.2 0 10*6/uL [facility] WBC (Bld) [#/Vol] 15.1 10*3/uL High 3.6 - 10.7 10*3/uL [facility] Test Performed by [facility], [address] [place], [place] [id number] [place] [address] LAB [facility] CT Head WO Contraston 2021 Patient Name: MIKEL WINSTON Computed Tomography ACCESSION EXAM DATE/TIME PROCEDURE ORDERING PROVIDER [id number] 12/13/2021 12:[address] Head or Brain w/o [id number] -ALVARO, Linda Contrast CPT code 34116 Reason For Exam (CT Head or Brain w/o Contrast) AMS Report CT HEAD WITHOUT CONTRAST CLINICAL INDICATION: Change in mental status Axial CT images of the brain were obtained without intravenous contrast. Coronal and sagittal reformatted images were also made available for interpretation. COMPARISON: 08/25/2019. FINDINGS: The ventricles, sulci, and cisterns are within normal limits for the patient's age. No high attenuation material is seen to suggest hemorrhage. There is no evidence for acute cortical infarction. No midline shift or mass effect is noted. No fracture is identified on the bone windows. The visualized portion of the paranasal sinuses appear clear. There is atherosclerotic calcification of the carotid siphons. IMPRESSION: No evidence of intracranial hemorrhage or definite acute cortical infarction. Report Dictated on --- Final --- Dictating Physician: MD TERESA JONATHAN R Signed Date and Time: 12/13/2021 12:52 pm Signed by: MD TERESA JONATHAN R Transcribed Date and Time: 12/13/2021 12:53 [facility] Shemar Teresa MD - 12/13/2021 Patient Name: MIKEL WINSTON Computed Tomography ACCESSION EXAM DATE/TIME PROCEDURE ORDERING PROVIDER [id number] 12/13/2021 12:[address] Head or Brain w/o [id number] -MORAH, J Contrast CPT code 99992 Reason For Exam (CT Head or Brain w/o Contrast) AMS Report CT HEAD WITHOUT CONTRAST CLINICAL INDICATION: Change in mental status Axial CT images of the brain were obtained without intravenous contrast. Coronal and sagittal reformatted images were also made available for interpretation. COMPARISON: 08/25/2019. FINDINGS: The ventricles, sulci, and cisterns are within normal limits for the patient's age. No high attenuation material is seen to suggest hemorrhage. There is no evidence for acute cortical infarction. No midline shift or mass effect is noted. No fracture is identified on the bone windows. The visualized portion of the paranasal sinuses appear clear. There is atherosclerotic calcification of the carotid siphons. IMPRESSION: No evidence of intracranial hemorrhage or definite acute cortical infarction. Report Dictated on --- Final --- Dictating Physician: MD TERESA JONATHAN R Signed Date and Time: 12/13/2021 12:52 pm Signed by: MD TERESA JONATHAN R Transcribed Date and Time: 12/13/2021 12:53 [facility] Work Phone: Radiology Study observation (narrative) [facility] Work Phone: CT Head WO ContrastOrdered B y: Shemar Teresa on 12-13-2021 [facility] Work Phone: CT Head or Brain w/o Contras ton 12-13-2021 CT Head or Brain w/o Contrast Patient Name: MIKEL WINSTON Computed Tomography ACCESSION EXAM DATE/TIME PROCEDURE ORDERING PROVIDER [id number] 12/13/2021 12:[address] Head or Brain w/o [id number] -MORAH, J Contrast CPT code 52744 Reason For Exam (CT Head or Brain w/o Contrast) AMS Report CT HEAD WITHOUT CONTRAST CLINICAL INDICATION: Change in mental status Axial CT images of the brain were obtained without intravenous contrast. Coronal and sagittal reformatted images were also made available for interpretation. COMPARISON: 08/25/2019. FINDINGS: The ventricles, sulci, and cisterns are within normal limits for the patient's age. No high attenuation material is seen to suggest hemorrhage. There is no evidence for acute cortical infarction. No midline shift or mass effect is noted. No fracture is identified on the bone windows. The visualized portion of the paranasal sinuses appear clear. There is atherosclerotic calcification of the carotid siphons. IMPRESSION: No evidence of intracranial hemorrhage or definite acute cortical infarction. Report Dictated on Final Dictating Physician: MD TERESA JONATHAN R Signed Date and Time: 12/13/2021 12:52 pm Signed by: MD TERESA JONATHAN R Transcribed Date and Time: 12/13/2021 12:[address] [facility] Complete Urinalysison 2021 Appearance (U) Clear Normal Clear [facility] Comment on above: Result Comment: . Performed By: #### B GLU #### [facility] [address] [place] [id number] Bacteria Moderate Abnormal Negative [facility] Comment on above: Result Comment: . Performed By: #### B GLU #### [facility] [address] [place] [id number] Bilirubin,Urine Negative Normal Negative [facility] Comment on above: Result Comment: . Performed By: #### B GLU #### [facility] [address] [place] [id number] Color (U) Yellow Normal Lt. Yellow [facility] Comment on above: Result Comment: . Performed By: #### B GLU #### [facility] [address] [place] [id number] Glucose Ql (U) Normal Normal Normal (<70) [facility] Comment on above: Result Comment: . Performed By: #### B GLU #### [facility] [address] [place] [address] Ketone,Urine Negative Normal Negative [facility] Comment on above: Result Comment: . Performed By: #### B GLU #### [facility] [address] [place] [address] Leukocytes,Urine Negative Normal Negative [facility] Comment on above: Result Comment: . Performed By: #### B GLU #### [facility] [address] [place] [address] Mucous Threads Few Normal Negative [facility] Comment on above: Result Comment: . Performed By: #### B GLU #### [facility] [address] [place] [address] Nitrites,Urine Negative Normal Negative [facility] Comment on above: Result Comment: . Performed By: #### B GLU #### [facility] [address] [place] [address] Occult Blood,Urine Negative Normal Negative [facility] Comment on above: Result Comment: . Performed By: #### B GLU #### [facility] [address] [place] [address] pH,Urine 5.0 Normal 5.0-8.[address] [facility] Comment on above: Result Comment: . Performed By: #### B GLU #### [facility] [facility] [address] [place] [address] Protein (U) [Mass/Vol] 10 mg/dL Abnormal Negative [facility] Comment on above: Result Comment: . Performed By: #### B GLU #### [facility] [address] [place] [address] RBC, Urine 0 - 2 Normal 0-[address] [facility] Comment on above: Result Comment: . Performed By: #### B GLU #### [facility] [address] [place] [address] Specific [place],Urine 1.023 Normal 1.005 - 1.[address] [facility] Comment on above: Result Comment: . Performed By: #### B GLU #### [facility] [address] [place] [address] Squamous Epithelial 0 - 2 Normal 3-[address] [facility] Comment on above: Result Comment: . Performed By: #### B GLU #### [facility] [address] [place] [id number] Uric Acid Crystals Few Abnormal Negative [facility] Comment on above: Result Comment: . Performed By: #### B GLU #### [facility] [address] [place] [id number] Urobilinogen,Urine Normal Normal Normal (0-1) [facility] Comment on above: Result Comment: . Performed By: #### B GLU #### [facility] [address] [place] [id number] WBC, Urine 0 - 2 Normal 0-[address] [facility] Comment on above: Result Comment: . Performed By: #### B GLU #### [facility] [address] [place] [id number] ED Provider Noteon ED Provider Note [facility] ENCOUNTER Pt Name: Mikel Winston Birthdate 1945 Date of evaluation: 12/13/2021 Provider: Linda Tejeda MD CHIEF COMPLAINT Chief Complaint Patient presents with ? Altered Mental Status HISTORY OF PRESENT ILLNESS (Location/Symptom, Timing/Onset, Context/Setting, Quality, Duration, Modifying Factors, Severity) Note limiting factors. I wore a kn95 mask for the entirety of this encounter. HPI Mikel Winston is a 76 y.o. female who presents to the emergency department For altered mental status. The patient states that she has been feeling woozy and her son is at the bedside, and states that today he went to check on her, and she was seated in the chair in the hallway and seemed to be staring past him. He states that this is how she usually acts when she has a urinary tract infection. The patient denies any recent falls or head injury, headache, fevers or chills, but does endorse dysuria. Nursing Notes were reviewed. REVIEW OF SYSTEMS (2+ for level 4; 10+ for level 5) Review of Systems 14 systems reviewed and otherwise acutely negative except as in the history of present illness. PAST MEDICAL HISTORY Past Medical History: Diagnosis Date ? CAD (coronary artery disease) ? Cirrhosis of liver (HCC) ? Diabetes mellitus (HCC) ? Hypertension ? Osteoporosis ? Thyroid disease SURGICAL HISTORY Past Surgical History: Procedure Laterality Date ? APPENDECTOMY ? CHOLECYSTECTOMY ? CORONARY ARTERY BYPASS GRAFT ? TOTAL KNEE ARTHROPLASTY Right ? TUBAL LIGATION CURRENT MEDICATIONS Previous Medications ASPIRIN 81 MG CHEWABLE TABLET Take 81 mg by mouth daily ATENOLOL (TENORMIN) 50 MG TABLET atenolol 50 mg tablet TAKE 1 TABLET BY MOUTH TWICE A DAY AFTER MEALS CHOLECALCIFEROL (VITAMIN D3) 5000 UNITS TABS Take 5,000 Units by mouth Daily with supper CITALOPRAM (CELEXA) 20 MG TABLET citalopram 20 mg tablet TAKE 1 TABLET BY MOUTH EVERY DAY FERROUS SULFATE 325 (65 FE) MG TABLET Take 325 mg by mouth daily (with breakfast) LEVOTHYROXINE (SYNTHROID) 50 MCG TABLET Take 50 mcg by mouth Daily LOSARTAN (COZAAR) 50 MG TABLET Take 50 mg by mouth daily METFORMIN (GLUCOPHAGE) 1000 MG TABLET Take 1,000 mg by mouth Daily with supper METFORMIN (GLUCOPHAGE) 500 MG TABLET Take 500 mg by mouth daily (with breakfast) MINOCYCLINE (MINOCIN;DYNACIN) 50 MG CAPSULE Take 50 mg by mouth daily NITROGLYCERIN (NITROSTAT) 0.4 MG SL TABLET up to max of 3 total doses. If no relief after 1 dose, call 911. OMEPRAZOLE (PRILOSEC) 20 MG CAPSULE Take 40 mg by mouth daily POTASSIUM CHLORIDE (MICRO-K) 10 MEQ EXTENDED RELEASE CAPSULE Take 10 mEq by mouth daily TICAGRELOR (BRILINTA) 90 MG TABS TABLET Take 1 tablet by mouth 2 times daily VITAMIN E 400 UNIT CAPSULE Take 800 Units by mouth daily ALLERGIES Codeine FAMILY HISTORY Family History Problem Relation Age of Onset ? Mental Illness Mother ? Diabetes Father ? Coronary Art Dis Brother ? Stroke Paternal Uncle SOCIAL HISTORY Social History Socioeconomic History ? Marital status: Spouse name: None ? Number of children: None ? Years of education: None ? Highest education level: None Occupational History ? None Tobacco Use ? Smoking status: Never Smoker ? Smokeless tobacco: Never Used Vaping Use ? Vaping Use: Never used Substance and Sexual Activity ? Alcohol use: No ? Drug use: No ? Sexual activity: None Other Topics Concern ? None Social History Narrative ? None Social Determinants of Health Financial Resource Strain: ? Difficulty of Paying Living Expenses: Not on file Food Insecurity: ? Worried About Running Out of Food in the Last Year: Not on file ? Ran Out of Food in the Last Year: Not on file Transportation Needs: ? Lack of Transportation (Medical): Not on file ? Lack of Transportation (Non-Medical): Not on file Physical Activity: ? Days of Exercise per Week: Not on file ? Minutes of Exercise per Session: Not on file Stress: ? Feeling of Stress : Not on file Social Connections: ? Frequency of Communication with Friends and Family: Not on file ? Frequency of Social Gatherings with Friends and Family: Not on file ? Attends Nondenominational Services: Not on file ? Active Member of Clubs or Organizations: Not on file ? Attends Club or Organization Meetings: Not on file ? Marital Status: Not on file Intimate Partner Violence: ? Fear of Current or Ex-Partner: Not on file ? Emotionally Abused: Not on file ? Physically Abused: Not on file ? Sexually Abused: Not on file Housing Stability: ? Unable to Pay for Housing in the Last Year: Not on file ? Number of Places Lived in the Last Year: Not on file ? Unstable Housing in the Last Year: Not on file SCREENINGS PHYSICAL EXAM (up to 7 for level 4, 8 or more for level 5) ED Triage Vitals [12/13/21 0842] BP Temp Temp Source Pulse Resp SpO2 Height Weight (!) 146/6 (more content not included)... Normal [facility] Glucose,Bedsideon 12-13-2021 Glucose [Mass/Vol] 217 mg/dL High 70-[address] [facility] Comment on above: Result Comment: Test performed by glucose meter. Results may be 10%-15% lower than serum/plasma values. (CLIA ID [id number]) Performed By: #### B GLU #### [facility] [address] [place] [address] Glucose [Mass/Vol] 176 mg/dL High 70-[address] [facility] Comment on above: Result Comment: Test performed by glucose meter. Results may be 10%-15% lower than serum/plasma values. (CLIA ID [id number]) Performed By: #### B GLU #### [facility] [address] [place] [address] Hemogram w/ Autodiffon 12-13 Abs Baso Cnt 0.1 10*3/uL Normal 0.0-0.2 [facility] Comment on above: Performed By: #### B NP3, CMP3, HEMDF #### [facility] [address] [place] [address] Abs Neutrophile Cnt 13.0 10*3/uL High 1.8-7.0 [facility] Comment on above: Performed By: #### B NP3, CMP3, HEMDF #### [facility] [address] [place] [address] Basophils/100 WBC (Bld) 0.5 % Normal 0.0-2.0 S [facility] Comment on above: Performed By: #### B NP3, CMP3, HEMDF #### [facility] [address] [place] [address] Eosinophils (Bld) [#/Vol] 0.0 10*3/uL Normal 0.0-0.[address] [facility] Comment on above: Performed By: #### B NP3, CMP3, HEMDF #### [facility] [address] [place] [address] Eosinophils/100 WBC (Bld) 0.0 % Low 1.0-6.[address] [facility] Comment on above: Performed By: #### B NP3, CMP3, HEMDF #### [facility] [address] [place] [address] Erythrocyte distribution width (RBC) [Ratio] 13.4 % Normal 11.5-14.[address] [facility] Comment on above: Performed By: #### B NP3, CMP3, HEMDF #### [facility] [address] [place] [address] Granulocytes/100 WBC (Bld) 85.9 % High 40.0-80.[address] [facility] Comment on above: Performed By: #### B NP3, CMP3, HEMDF #### [facility] [address] [place] [address] Hematocrit (Bld) [Volume fraction] 34.3 % Low 35.0-47.[address] [facility] Comment on above: Performed By: #### B NP3, CMP3, HEMDF #### [facility] [address] [place] [address] Hemoglobin (Bld) [Mass/Vol] 11.7 g/dL Normal 11.7-16.[address] [facility] Comment on above: Performed By: #### B NP3, CMP3, HEMDF #### [facility] [address] [place] [address] Lymphocytes (Bld) [#/Vol] 0.7 10*3/uL Low 1.0-4.[address] [facility] Comment on above: Performed By: #### B NP3, CMP3, HEMDF #### [facility] [address] [place] [address] Lymphocytes/100 WBC (Bld) 4.3 % Low 20.0-40.[address] [facility] Comment on above: Performed By: #### B NP3, CMP3, HEMDF #### [facility] [address] [place] [address] MCH (RBC) [Entitic mass] 32.9 pg Normal 26.0-34.[address] [facility] Comment on above: Performed By: #### B NP3, CMP3, HEMDF #### [facility] [address] [place] [address] MCHC 34.1 % Normal 32.0-36.[address] [facility] Comment on above: Performed By: #### B NP3, CMP3, HEMDF #### [facility] [address] [place] [address] MCV (RBC) [Entitic vol] 96.6 fL Normal 79.0-98.0 S [facility] Comment on above: Performed By: #### B NP3, CMP3, HEMDF #### [facility] [address] [place] [address] Monocytes (Bld) [#/Vol] 1.4 10*3/uL High 0.0-0.[address] [facility] Comment on above: Performed By: #### B NP3, CMP3, HEMDF #### [facility] [address] [place] [address] Monocytes/100 WBC (Bld) 9.3 % Normal 2.0-10.0 S [facility] Comment on above: Performed By: #### B NP3, CMP3, HEMDF #### [facility] [address] [place] [address] Platelet mean volume (Bld) [Entitic vol] 10.3 fL Normal 7.4-12.[address] [facility] Comment on above: Result Comment: MPV is a calculated measurement using platelet volume ratio. Performed By: #### B NP3, CMP3, HEMDF #### [facility] [address] [place] [id number] Platelets (Bld) [#/Vol] 101 10*3/uL Low 140-[address] [facility] Comment on above: Performed By: #### B NP3, CMP3, HEMDF #### [facility] [address] [place] [id number] RBC (Bld) [#/Vol] 3.55 10*6/uL Low 3.80-5.[address] [facility] Comment on above: Performed By: #### B NP3, CMP3, HEMDF #### [facility] [address] [place] [id number] WBC (Bld) [#/Vol] 15.1 10*3/uL High 3.6-10.[address] [facility] Comment on above: Performed By: #### B NP3, CMP3, HEMDF #### [facility] [address] [facility] [place] [address] Lactate, Sepsison 12-13-2021 Lactate [Moles/Vol] 1.7 mmol/L 0.7 - 2. 0 mmol/L [facility] Test Performed by [facility], [facility] [address] [place], [place] [address] [place] [address] LAB [facility] Interpretation and review of laboratory results Abnormal [facility] Lactate [Moles/Vol] 2.1 mmol/L Critically high 0.7 - 2.0 mmol/L [facility] Test Performed by [facility], [facility] [address] [place], [place] [id number] [place] [address] LAB [facility] Lactic Acidon 12-13-2021 Lactate [Moles/Vol] 2.1 mmol/L Critically high 0.7-2.[address] [facility] Comment on above: Performed By: #### B GLU #### [facility] [address] [facility] [place] [id number] Interpretation and review of laboratory results Abnormal [facility] Lactate [Moles/Vol] 2.1 mmol/L Critically high 0.7 - 2.0 mmol/L [facility] Test Performed by [facility], [address] LAB [facility] Lactic Acid, Sepsison 2021 Lactate [Moles/Vol] 2.1 mmol/L Critically high 0.7-2.[address] [facility] Comment on above: Performed By: #### B GLU #### [facility] [address] [place] [address] POCT GlucoseOrdered By: Anthony Sagastume on 12-13-2021 Glucose [Mass/Vol] 217 mg/dL High 70 - 100 mg/dL [facility] Comment on above: Test performed by gl ucose meter. Results may be 10%-15% lower than serum/plasma values. (CLIA ID [id number]) Interpretation and review of laboratory results Abnormal [facility] POCT Glucoseon 12-13-2021 Test Performed by [facility], [address] LAB Test Performed by [facility], [address] LAB POCT GlucoseOrdered By: Gerard Winston on 12-13-2021 Glucose [Mass/Vol] 176 mg/dL High 70 - 100 mg/dL [facility] Work Phone: Comment on above: Test performed by gl ucose meter. Results may be 10%-15% lower than serum/plasma values. (CLIA ID [id number]) Interpretation and review of laboratory results Abnormal [facility] Work Phone: [facility] Work Phone: Urinalysison 12-13-2021 Appearance (U) Clear Clear NA [facility] Comment on above: . Bacteria, UA Moderate Abnormal Negative /[HPF] [facility] Comment on above: . Bilirubin Urine Negative Negative mg/dL [facility] Comment on above: . Color (U) Yellow Lt. Yellow NA [facility] Comment on above: . Glucose, Ur Normal Normal (<70) mg/dL [facility] Comment on above: . Interpretation and review of laboratory results Abnormal [facility] Ketones Ql (U) Negative Negative mg/dL [facility] Comment on above: . LEUKOCYTES, UA Negative Negative Yomi/uL [facility] Comment on above: . Mucous Threads Few Negative /[LPF] [facility] Comment on above: . Nitrite, Urine Negative Negative NA [facility] Comment on above: . Occult Blood,Urine Negative Negative mg/dL [facility] Comment on above: . pH (U) 5.0 [pH] [facility] Comment on above: . Protein (U) [Mass/Vol] 10 mg/dL Abnormal Negative [facility] Comment on above: . RBC, UA 0-2 0 - 2 /[HPF] [facility] Comment on above: . Specific [place], Urine 1.023 S [facility] Comment on above: . Squam Epithel, UA 0-2 3 - 5 /[HPF] [facility] Comment on above: . Uric Acid Valerie, UA Few Abnormal Negative /[HPF] [facility] Comment on above: . Urobilinogen, Urine Normal Normal (0-1) mg/dL [facility] Comment on above: . WBC, UA 0-2 0 - 5 /[HPF] [facility] Comment on above: . Test Performed by [facility], [address] [place], [place] [id number] [place] [address] LAB [facility] LOWER EXTREMITY BILATERAL VENOUS DUPLEXon 12-13-2021 Radiology Study observation (narrative) [facility] Work Phone: Laboratory - Chemistry and C hemistry - challengeon 11-26-2020 Average glucose Estimated from glycated hemoglobin (Bld) [Mass/Vol] 140 mg/dL [facility] Laboratory - Hematology and Cell countson 11-26-2020 HbA1c (Bld) [Mass fraction] 6.5 % High 4.3 - 5.6 % [facility] VL LOWER EXTREMITY VENOUS RI GHT [id number] 08-29-2020 [facility] Right Lower Extremity Venous Duplex Report Patient Ravindra CYRIL: 1945 Study 08/29/2020 Name: Mikel Davis (75yrs) Date: Age: 75 Account: [id number] Gender: F Loc: BP: Ordering Physician: Komal Cohn Event Attendant: Adrienne Williamson RDMS, RVT Interpreting Physician: Gracie Michele MD Location: [facility] Indications: DVT. Preliminary result was reported to Sylvia - Office , by Adrienne Williamson , on 08/29/2020 , at 01:40 PM. Correct read-back was verified. Patient was sent home. Conclusions 1. There is no evidence of acute deep or superficial venous thrombosis noted in the right lower extremity. 2. The left common femoral vein fully compresses and demonstrates normal venous flow. History: Risk factors: No risk factors for vascular disease. Study data: Right lower extremity venous duplex evaluation. Right lateral evaluation with grayscale 2D imaging, color Doppler imaging, and spectral Doppler analysis. Location: Vascular laboratory. Procedure: A vascular evaluation was performed with the patient in the supine position. Images were obtained using a StoredIQ E9 vascular ultrasound machine. Venous flow and imaging: + ------+-------+----- + +Location +Overall+Properties + + ------+-------+----- + +R CFV +Patent +Normal phasicity; spontaneous; + + + +normal augmentation; compressible + + ------+-------+----- + +R saphenofemoral junction+Patent +Compressible + + ------+-------+----- + +R profunda femoral +Patent +Normal phasicity; spontaneous; + + + +normal augmentation + + ------+-------+----- + +R FV - prox. +Patent +Compressible + + ------+-------+----- + +R FV - mid +Patent +Normal phasicity; spontaneous; + + + +normal augmentation; compressible + + ------+-------+----- + +R FV - distal +Patent +Compressible + + ------+-------+----- + +R popliteal +Patent +Normal phasicity; spontaneous; + + + +normal augmentation; compressible + + ------+-------+----- + +R gastrocnemius +Patent +Compressible + + ------+-------+----- + +R PTV +Patent +Compressible + + ------+-------+----- + +R peroneal +Patent +Compressible + + ------+-------+----- + +R soleal +Patent +Compressible + + ------+-------+----- + +R GSV +Patent +Compressible + + ------+-------+----- + +L CFV +Patent +Normal phasicity; spontaneous; + + + +normal augmentation; compressible + + ------+-------+----- + Prepared and electronically signed by Gracie Michele MD 08/29/2020 15:[address] [facility] [place] [place] [facility] Incoming Cardiology Results From [facility] - 08/29/2020 3:12 PM [facility] Right Lower Extremity Venous Duplex Report Patient Ravindra, : 1945 Study 08/29/2020 Name: Mikel Davis (75yrs) Date: Age: 75 Account: [id number] Gender: F Loc: BP: Ordering Physician: Komal Cohn Event Attendant: Adrienne Williamson RDMS, RVT Interpreting Physician: Gracie Michele MD Location: [facility] Indications: DVT. Preliminary result was reported to [facility] - Office , by Adrienne Williamson , on 08/29/2020 , at 01:40 PM. Correct read-back was verified. Patient was sent home. Conclusions 1. There is no evidence of acute deep or superficial venous thrombosis noted in the right lower extremity. 2. The left common femoral vein fully compresses and demonstrates normal venous flow. History: Risk factors: No risk factors for vascular disease. Study data: Right lower extremity venous duplex evaluation. Right lateral evaluation with grayscale 2D imaging, color Doppler imaging, and spectral Doppler analysis. Location: Vascular laboratory. Procedure: A vascular evaluation was performed with the patient in the supine position. Images were obtained using a StoredIQ E9 vascular ultrasound machine. Venous flow and imaging: + ------+-------+----- + +Location +Overall+Properties + + ------+-------+----- + +R CFV +Patent +Normal phasicity; spontaneous; + + + +normal augmentation; compressible + + ------+-------+----- + +R saphenofemoral junction+Patent +Compressible + + ------+-------+----- + +R profunda femoral +Patent +Normal phasicity; spontaneous; + + + +normal augmentation + + ------+-------+----- + +R FV - prox. +Patent +Compressible + + ------+-------+----- + +R FV - mid +Patent +Normal phasicity; spontaneous; + + + +normal augmentation; compressible + + ------+-------+----- + +R FV - distal +Patent +Compressible + + ------+-------+----- + +R popliteal +Patent +Normal phasicity; spontaneous; + + + +normal augmentation; compressible + + ------+-------+----- + +R gastrocnemius +Patent +Compressible + + ------+-------+----- + +R PTV +Patent +Compressible + + ------+-------+----- + +R peroneal +Patent +Compressible + + ------+-------+----- + +R soleal +Patent +Compressible + + ------+-------+----- + +R GSV +Patent +Compressible + + ------+-------+----- + +L CFV +Patent +Normal phasicity; spontaneous; + + + +normal augmentation; compressible + + ------+-------+----- + Prepared and electronically signed by Gracie Michele MD 08/29/2020 15:12 [place], [place] CT Facial Bones WO ContrastO rdered By: Melanie Padilla on 08-25-2019 Patient Name: MIKEL WINSTON ---CT--- Exam Date/Time 08/25/2019 17:45:[address] Maxillofacial w/o Contrast Ordering Physician BAYRON PADILLA TAYLOR Accession Number [id number] CPT4 Codes 68664 () Reason For Exam fall, head injury, right supraorbital rim tender, ecchymotic, eyelid swelling Report Indication: Trauma to face. FINDINGS: Unenhanced maxillofacial CT performed. Imaging viewed in multiple planes. 3-D imaging created and reviewed on independent 3-D workstation for better detection of subtle fractures. No displaced fracture visualized. Sinuses are clear. Soft tissue swelling present over the right orbital frontal region. Preseptal edema on the right. No post septal orbital findings. IMPRESSION: No acute bone process seen. Report Dictated on --- Final --- Dictating Physician: MD ZHANG JOHN Signed Date and Time: 08/25/2019 5:55 pm Signed by: MD ZHANG JOHN Transcribed Date and Time: 08/25/2019 5:56 [facility] Work Phone: [facility] Incoming Radiology Results From [facility] - 08/25/2019 5:56 PM EST Patient Name: MIKEL WINSTON ---CT--- Exam Date/Time 08/25/2019 17:45:[address] Maxillofacial w/o Contrast Ordering Physician BAYRON PADILLA TAYLOR Accession Number [id number] CPT4 Codes 00362 () Reason For Exam fall, head injury, right supraorbital rim tender, ecchymotic, eyelid swelling Report Indication: Trauma to face. FINDINGS: Unenhanced maxillofacial CT performed. Imaging viewed in multiple planes. 3-D imaging created and reviewed on independent 3-D workstation for better detection of subtle fractures. No displaced fracture visualized. Sinuses are clear. Soft tissue swelling present over the right orbital frontal region. Preseptal edema on the right. No post septal orbital findings. IMPRESSION: No acute bone process seen. Report Dictated on --- Final --- Dictating Physician: MD ZHANG JOHN Signed Date and Time: 08/25/2019 5:55 pm Signed by: MD ZHANG JOHN Transcribed Date and Time: 08/25/2019 5:56 [facility] Work Phone: CT Head WO ContrastOrdered B y: Melanie Padilla on 08-25-2019 Patient Name: MIKEL WINSTON ---CT--- Exam Date/Time 08/25/2019 17:45:[address] Head or Brain w/o Contrast Ordering Physician BAYORN PADILLA TAYLOR Accession Number [id number] CPT4 Codes 19850 () Reason For Exam fall, head injury Report Indication: Trauma to head Comparison date: No comparison. FINDINGS: 3 mm unenhanced imaging of the brain performed. Images viewed in multiple orthogonal planes. There is no acute edema. No midline shift. There is no evidence of acute infarct. There is no definite acute hemorrhage. No abnormal extra-axial fluid collections visualized. Bony structures:Unremarka ble as seen. CSF spaces are unremarkable. Orbits within normal limits. Review of the paranasal sinuses shows no air-fluid levels. IMPRESSION: No acute brain process identified. Report Dictated on --- Final --- Dictating Physician: MD ZHANG JOHN Signed Date and Time: 08/25/2019 5:47 pm Signed by: MD ZHANG JOHN Transcribed Date and Time: 08/25/2019 5:48 [facility] Work Phone: [facility] Incoming Radiology Results From [facility] - 08/25/2019 5:48 PM EST Patient Name: MIKEL WINSTON ---CT--- Exam Date/Time 08/25/2019 17:45:[address] Head or Brain w/o Contrast Ordering Physician BAYRON PADILLA TAYLOR Accession Number [id number] CPT4 Codes 95098 () Reason For Exam fall, head injury Report Indication: Trauma to head Comparison date: No comparison. FINDINGS: 3 mm unenhanced imaging of the brain performed. Images viewed in multiple orthogonal planes. There is no acute edema. No midline shift. There is no evidence of acute infarct. There is no definite acute hemorrhage. No abnormal extra-axial fluid collections visualized. Bony structures:Unremarka ble as seen. CSF spaces are unremarkable. Orbits within normal limits. Review of the paranasal sinuses shows no air-fluid levels. IMPRESSION: No acute brain process identified. Report Dictated on --- Final --- Dictating Physician: MD ZHANG JOHN Signed Date and Time: 08/25/2019 5:47 pm Signed by: MD ZHANG JOHN Transcribed Date and Time: 08/25/2019 5:48 [facility] Work Phone: XR CHEST PORTABLEOrdered By: Melanie Padilla on 08-25-2019 Patient Name: MIKEL WINSTON ---Diagnostic Radiology--- Exam Date/Time 08/25/2019 17:21:32 EST Exam CR Chest Portable Ordering Physician BAYRON PADILLA TAYLOR Accession Number [id number] CPT4 Codes 14420 () Reason For Exam b/l anterolateral rib pain, fall Report EXAM TYPE: RADIOLOGIC EXAMINATION, CHEST, SINGLE VIEW FRONTAL (CXR SINGLE VIEW) EXAM DATE AND TIME: 08/25/2019 5:21 PM EST INDICATION: Rib pain COMPARISON: 12/26/2017 TECHNIQUE: A single frontal view of the thorax was obtained and reviewed. Special views: None. IMPRESSION: 1. Lines/Tubes/Devices/ Hardware: Sternotomy wires. Leads.. Please confirm position/function of devices/catheters clinically. 2. Lungs: No consolidation or pulmonary edema. 3. Pleura: No significant effusion. No significant pneumothorax. 4. Heart and mediastinum: Cardiac enlargement. This may part be due to technique. 5. Upper abdomen: No acute process seen. 6. Thorax:No acute bony process Report Dictated on --- Final --- Dictating Physician: MD ZHANG JOHN Signed Date and Time: 08/25/2019 5:32 pm Signed by: MD ZHANG JOHN Transcribed Date and Time: 08/25/2019 5:33 [facility] Work Phone: [facility], [facility] Incoming Radiology Results From [facility] - 08/25/2019 5:34 PM EST Patient Name: MIKEL WINSTON ---Diagnostic Radiology--- Exam Date/Time 08/25/2019 17:21:32 EST Exam CR Chest Portable Ordering Physician BAYRON PADILLA TAYLOR Accession Number [id number] CPT4 Codes 73957 () Reason For Exam b/l anterolateral rib pain, fall Report EXAM TYPE: RADIOLOGIC EXAMINATION, CHEST, SINGLE VIEW FRONTAL (CXR SINGLE VIEW) EXAM DATE AND TIME: 08/25/2019 5:21 PM EST INDICATION: Rib pain COMPARISON: 12/26/2017 TECHNIQUE: A single frontal view of the thorax was obtained and reviewed. Special views: None. IMPRESSION: 1. Lines/Tubes/Devices/ Hardware: Sternotomy wires. Leads.. Please confirm position/function of devices/catheters clinically. 2. Lungs: No consolidation or pulmonary edema. 3. Pleura: No significant effusion. No significant pneumothorax. 4. Heart and mediastinum: Cardiac enlargement. This may part be due to technique. 5. Upper abdomen: No acute process seen. 6. Thorax:No acute bony process Report Dictated on --- Final --- Dictating Physician: MD ZHANG JOHN Signed Date and Time: 08/25/2019 5:32 pm Signed by: MD ZHANG JOHN Transcribed Date and Time: 08/25/2019 5:33 [facility] Work Phone: XR KNEE LEFT (3 VIEWS)Ordere d By: Melanie Padilla on 08-25-2019 Patient Name: MIKEL WINSTON ---Diagnostic Radiology--- Exam Date/Time 08/25/2019 17:21:32 EST Exam CR Knee 3 Views Left Ordering Physician BAYRNO PADILLA TAYLOR Accession Number [id number] CPT4 Codes 23908 () Reason For Exam left knee pain, fall Report Indication: Left knee pain and trauma. Findings and impression: Left knee 3 views. No fracture or dislocation. Moderate to severe degenerative changes including medial joint compartment narrowing greater than lateral. No effusion. Some soft tissue swelling over the patella. No acute bone process seen. Report Dictated on --- Final --- Dictating Physician: MD ZHANG JOHN Signed Date and Time: 08/25/2019 5:33 pm Signed by: MD ZHANG JOHN Transcribed Date and Time: 08/25/2019 5:34 [facility] Work Phone: [facility] In[facility] Results From [facility] - 08/25/2019 5:34 PM EST Patient Name: MIKEL WINSTON ---Diagnostic Radiology--- Exam Date/Time 08/25/2019 17:21:32 EST Exam CR Knee 3 Views Left Ordering Physician BAYRON PADILLA TAYLOR Accession Number [id number] CPT4 Codes 60692 () Reason For Exam left knee pain, fall Report Indication: Left knee pain and trauma. Findings and impression: Left knee 3 views. No fracture or dislocation. Moderate to severe degenerative changes including medial joint compartment narrowing greater than lateral. No effusion. Some soft tissue swelling over the patella. No acute bone process seen. Report Dictated on --- Final --- Dictating Physician: MD ZHANG JOHN Signed Date and Time: 08/25/2019 5:33 pm Signed by: MD ZHANG JOHN Transcribed Date and Time: 08/25/2019 5:34 [facility] Work Phone: XR Shoulder Right 2 VWOrdere d By: Melanie Padilla on 08-25-2019 Patient Name: MIKEL WINSTON ---Diagnostic Radiology--- Exam Date/Time 08/25/2019 17:21:32 EST Exam CR Shoulder 2+ Views Right Ordering Physician BAYRON PADILLA TAYLOR Accession Number [id number] CPT4 Codes 91018 () Reason For Exam right shoulder pain, fall Report Indication: Right shoulder pain and fall. Findings and impression: Right shoulder 3 views. Bone density normal. No definite fracture or dislocation. No acute bone process seen. Report Dictated on --- Final --- Dictating Physician: MD ZHANG JOHN Signed Date and Time: 08/25/2019 5:31 pm Signed by: MD ZHANG JOHN Transcribed Date and Time: 08/25/2019 5:32 [facility] Work Phone: [facility] Incoming Radiology Results From [facility] - 08/25/2019 5:33 PM EST Patient Name: MIKEL WINSTON ---Diagnostic Radiology--- Exam Date/Time 08/25/2019 17:21:32 EST Exam CR Shoulder 2+ Views Right Ordering Physician BAYRON PADILLA TAYLOR Accession Number [id number] CPT4 Codes 58799 () Reason For Exam right shoulder pain, fall Report Indication: Right shoulder pain and fall. Findings and impression: Right shoulder 3 views. Bone density normal. No definite fracture or dislocation. No acute bone process seen. Report Dictated on --- Final --- Dictating Physician: MD ZHANG JOHN Signed Date and Time: 08/25/2019 5:31 pm Signed by: MD ZHANG JOHN Transcribed Date and Time: 08/25/2019 5:32 [facility] Work Phone: Vital Signs Date Time Vital Sign Value Performing Clinician Facility 01-11-2025 15:30-0400 Diastolic blood pressure 74 mm[Hg] Meet Martinez BRUNNER Work Phone: [employer] [facility] 01-11-2025 15:30-0400 Systolic blood pressure 144 mm[Hg] Meet Martinez BRUNNER Work Phone: [facility] 01-11-2025 15:16-0400 Body height 162.6 cm Meet Martinez BRUNNER Work Phone: [facility] 01-11-2025 15:16-0400 Body mass index (BMI) [Ratio] 34.67 kg/m2 Meet Martinez BRUNNER Work Phone: [facility] 01-11-2025 15:16-0400 Body weight 91.63 kg Meet Martinez BRUNNER Work Phone: [facility] 01-11-2025 15:16-0400 Heart rate 84 /min Meet Martinez BRUNNER Work Phone: [facility] 01-11-2025 15:16-0400 SaO2% (BldA) [Mass fraction] 97 % Meet Martinez BRUNNER Work Phone: [facility] 07-04-2024 07:27-0500 Body temperature 98.49 [degF] Kaiden David MD Work Phone: [employer] [facility] 07-04-2024 07:27-0500 Diastolic blood pressure 62 mm[Hg] Kaiden David MD Work Phone: [facility] [facility] 07-04-2024 07:27-0500 Heart rate 86 /min Kaiden David MD Work Phone: [facility] 07-04-2024 07:27-0500 Respiratory rate 20 /min Kaiden David MD Work Phone: [facility] 07-04-2024 07:27-0500 SaO2% (BldA) [Mass fraction] 99 % Kaiden David MD Work Phone: [facility] 07-04-2024 07:27-0500 Systolic blood pressure 142 mm[Hg] Kaiden David MD Work Phone: [facility] 06-29-2024 08:31-0500 Body height 162.6 cm Kaiden David MD Work Phone: [facility] 06-26-2024 08:31-0500 SaO2% (BldA) [Mass fraction] 96.6 % Kaiden David MD Work Phone: [facility] 06-11-2024 13:54-0500 Diastolic blood pressure 90 mm[Hg] [place] Lalit DO Work Phone: [facility] 06-11-2024 13:54-0500 Systolic blood pressure 143 mm[Hg] [place] Lalit DO Work Phone: [facility] 06-11-2024 13:13-0500 Body height 162.6 cm Komal Lalit DO Work Phone: [facility] 06-11-2024 13:13-0500 Body mass index (BMI) [Ratio] 32.61 kg/m2 Komal Lalit DO Work Phone: [facility] 06-11-2024 13:13-0500 Body temperature 97.81 [degF] Komal Lalit DO Work Phone: [facility] 06-11-2024 13:13-0500 Body weight 86.18 kg Komal Lalit DO Work Phone: [facility] 06-11-2024 13:13-0500 Heart rate 92 /min Komal Lalit DO Work Phone: [facility] 06-11-2024 13:13-0500 SaO2% (BldA) [Mass fraction] 98 % Komal Lalit DO Work Phone: [facility] 06-01-2024 12:58-0400 Body temperature 98.8 [degF] Kimi Maryville DO Work Phone: [facility] 06-01-2024 12:58-0400 Diastolic blood pressure 37 mm[Hg] Kimi Maryville DO Work Phone: [facility] 06-01-2024 12:58-0400 Heart rate 66 /min Kimi Maryville DO Work Phone: [facility] 06-01-2024 12:58-0400 Respiratory rate 17 /min Kimi Maryville DO Work Phone: [facility] 06-01-2024 12:58-0400 SaO2% (BldA) [Mass fraction] 94 % Kimi Maryville DO Work Phone: [facility] 06-01-2024 12:58-0400 Systolic blood pressure 126 mm[Hg] Kimi Maryville DO Work Phone: [facility] 05-29-2024 22:29-0400 Body mass index (BMI) [Ratio] 36.56 kg/m2 Kimi Maryville DO Work Phone: [facility] 05-29-2024 22:29-0400 Body weight 96.62 kg Kimi Maryville DO Work Phone: [facility] 05-29-2024 18:40-0400 Body height 162.6 cm Kimi Maryville DO Work Phone: [facility] 04-27-2024 16:08-0400 Body height 162.6 cm [place] Lalit DO Work Phone: [facility] 04-27-2024 16:08-0400 Body mass index (BMI) [Ratio] 33.99 kg/m2 Komal Lalit DO Work Phone: [facility] 04-27-2024 16:08-0400 Body temperature 98.1 [degF] Komal Lalit DO Work Phone: [facility] 04-27-2024 16:08-0400 Body weight 89.81 kg Komal Lalit DO Work Phone: [facility] 04-27-2024 16:08-0400 Diastolic blood pressure 64 mm[Hg] Komal Lalit DO Work Phone: [facility] 04-27-2024 16:08-0400 Heart rate 61 /min [place] Lalit DO Work Phone: [facility] 04-27-2024 16:08-0400 SaO2% (BldA) [Mass fraction] 96 % [place] Lalit DO Work Phone: [facility] 04-27-2024 16:08-0400 Systolic blood pressure 130 mm[Hg] [place] Lalit DO Work Phone: [facility] 04-18-2024 13:52-0400 Body height 162.6 cm Jose Joel MD Work Phone: [facility] 04-18-2024 13:52-0400 Body mass index (BMI) [Ratio] 33.81 kg/m2 Jose Joel MD Work Phone: [facility] 04-18-2024 13:52-0400 Body weight 89.36 kg Jose Joel MD Work Phone: [facility] 03-16-2024 15:22-0400 Body height 162.6 cm [place] Lalit DO Work Phone: [facility] 03-16-2024 15:22-0400 Body mass index (BMI) [Ratio] 33.64 kg/m2 Komal Lalit DO Work Phone: [facility] 03-16-2024 15:22-0400 Body weight 88.91 kg [place] Lalti DO Work Phone: [facility] 03-16-2024 15:22-0400 Diastolic blood pressure 52 mm[Hg] Komal Lalit DO Work Phone: [facility] 03-16-2024 15:22-0400 Heart rate 60 /min Komal Lalit DO Work Phone: [facility] 03-16-2024 15:22-0400 SaO2% (BldA) [Mass fraction] 99 % [place] Lalit DO Work Phone: [facility] 03-16-2024 15:22-0400 Systolic blood pressure 120 mm[Hg] Komal Lalit DO Work Phone: [facility] 03-14-2024 13:06-0400 Body height 162.6 cm Jose Joel MD Work Phone: [facility] 03-14-2024 13:06-0400 Body mass index (BMI) [Ratio] 33.81 kg/m2 Jose Joel MD Work Phone: [facility] 03-14-2024 13:06-0400 Body weight 89.36 kg Jose Joel MD Work Phone: [facility] 03-14-2024 13:06-0400 Diastolic blood pressure 84 mm[Hg] Jose Joel MD Work Phone: [facility] 03-14-2024 13:06-0400 Heart rate 70 /min Jose Joel MD Work Phone: [facility] 03-14-2024 13:06-0400 SaO2% (BldA) [Mass fraction] 99 % Jose Joel MD Work Phone: [facility] 03-14-2024 13:06-0400 Systolic blood pressure 178 mm[Hg] Jose Joel MD Work Phone: [facility] 02-27-2024 15:18-0400 Body height 162.6 cm [place] Lalit DO Work Phone: [facility] 02-27-2024 15:18-0400 Body mass index (BMI) [Ratio] 34.16 kg/m2 Komal Lalit DO Work Phone: [facility] 02-27-2024 15:18-0400 Body temperature 97.5 [degF] Komal Lalit DO Work Phone: [facility] 02-27-2024 15:18-0400 Body weight 90.27 kg [place] Lalit DO Work Phone: [facility] 02-27-2024 15:18-0400 Diastolic blood pressure 60 mm[Hg] Komal Lalit DO Work Phone: [facility] 02-27-2024 15:18-0400 Heart rate 63 /min [place] Lalit DO Work Phone: [facility] 02-27-2024 15:18-0400 SaO2% (BldA) [Mass fraction] 98 % [place] Lalit DO Work Phone: [facility] 02-27-2024 15:18-0400 Systolic blood pressure 140 mm[Hg] Komal Lalit DO Work Phone: [facility] 02-02-2024 08:00-0400 Body temperature 96.8 [degF] Surjit Sanchez MD Work Phone: [facility] 02-02-2024 08:00-0400 Diastolic blood pressure 50 mm[Hg] Surjit Sanchez MD Work Phone: [facility] 02-02-2024 08:00-0400 Heart rate 55 /min Surjit Sanchez MD Work Phone: [facility] 02-02-2024 08:00-0400 Respiratory rate 16 /min Surjit Sanchez MD Work Phone: [facility] 02-02-2024 08:00-0400 SaO2% (BldA) [Mass fraction] 92 % Surjit Sanchez MD Work Phone: [facility] 02-02-2024 08:00-0400 Systolic blood pressure 113 mm[Hg] Surjit Sanchez MD Work Phone: [facility] 01-28-2024 21:30-0400 Body mass index (BMI) [Ratio] 33.06 kg/m2 Surjit Sanchez MD Work Phone: [facility] 01-28-2024 21:30-0400 Body weight 92.9 kg Surjit Sanchez MD Work Phone: [facility] 01-28-2024 19:49-0400 Body height 167.6 cm Surjit Sanchez MD Work Phone: [facility] 01-06-2024 13:09-0400 Body height 162.6 cm [place] Lalit DO Work Phone: [facility] 01-06-2024 13:09-0400 Body mass index (BMI) [Ratio] 35.36 kg/m2 Komal Lalit DO Work Phone: [facility] 01-06-2024 13:09-0400 Body temperature 98.01 [degF] [place] Lalit DO Work Phone: [facility] 01-06-2024 13:09-0400 Body weight 93.44 kg Komal Lalit DO Work Phone: [facility] 01-06-2024 13:09-0400 Diastolic blood pressure 70 mm[Hg] [place] Lalit DO Work Phone: [facility] 01-06-2024 13:090400 Heart rate 61 /min [place] Lalit DO Work Phone: [facility] 01-06-2024 13:09-0400 SaO2% (BldA) [Mass fraction] 97 % [place] Lalit DO Work Phone: [facility] 01-06-2024 13:09-0400 Systolic blood pressure 134 mm[Hg] Komal Lalit DO Work Phone: [facility] 12-07-2023 [id number] Body height 162.6 cm [place] Lalit DO Work Phone: [facility] 12-07-2023 10:21-0400 Body mass index (BMI) [Ratio] 35.87 kg/m2 [place] Lalit DO Work Phone: [facility] 12-07-2023 10:21-0400 Body temperature 98.2 [degF] [place] Lalit DO Work Phone: [facility] 12-07-2023 [id number] Body weight 94.8 kg Komal Lalit DO Work Phone: [facility] 12-07-2023 10:21-0400 Diastolic blood pressure 60 mm[Hg] Komal Lalit DO Work Phone: [facility] 12-07-2023 10:21-0400 Heart rate 80 /min Komal Lalit DO Work Phone: [facility] 12-07-2023 10:21-0400 SaO2% (BldA) [Mass fraction] 96 % Komal Lalit DO Work Phone: [facility] 12-07-2023 10:21-0400 Systolic blood pressure 118 mm[Hg] [place] Lalit DO Work Phone: [facility] 06-27-2023 10:51-0500 Body height 162.6 cm Komal Lalit DO Work Phone: [facility] 06-27-2023 10:51-0500 Body temperature 97.5 [degF] [place] Lalit DO Work Phone: [facility] 06-27-2023 10:51-0500 Body weight 90.72 kg [place] Lalit DO Work Phone: [facility] 06-27-2023 10:51-0500 Diastolic blood pressure 60 mm[Hg] [place] Lalit DO Work Phone: [facility] 06-27-2023 10:51-0500 Heart rate 67 /min [place] Lalit DO Work Phone: [facility] 06-27-2023 10:51-0500 SaO2% (BldA) [Mass fraction] 99 % Komal Lalit DO Work Phone: [facility] 06-27-2023 10:51-0500 Systolic blood pressure 128 mm[Hg] Komal Lalit DO Work Phone: [facility] 03-30-2023 10:44-0400 Body height 162.6 cm Jose Joel MD Work Phone: [facility] 03-30-2023 10:44-0400 Body mass index (BMI) [Ratio] 33.88 kg/m2 Jose Joel MD Work Phone: [facility] 03-30-2023 10:44-0400 Body weight 89.54 kg Jose Joel MD Work Phone: [facility] 03-30-2023 10:44-0400 Diastolic blood pressure 70 mm[Hg] Jose Joel MD Work Phone: [facility] 03-30-2023 10:44-0400 Heart rate 73 /min Jose Joel MD Work Phone: [facility] 03-30-2023 10:44-0400 Respiratory rate 16 /min Jose Joel MD Work Phone: [facility] 03-30-2023 10:44-0400 SaO2% (BldA) [Mass fraction] 96 % Jose Joel MD Work Phone: [facility] 03-30-2023 10:44-0400 Systolic blood pressure 130 mm[Hg] Jose Joel MD Work Phone: [facility] 03-14-2023 10:46-0400 Body height 162.6 cm Komal Lalit DO Work Phone: [facility] 03-14-2023 10:46-0400 Body temperature 97.59 [degF] [place] Lalit DO Work Phone: [facility] 03-14-2023 10:46-0400 Body weight 88.91 kg Komal Lalit DO Work Phone: [facility] 03-14-2023 10:46-0400 Diastolic blood pressure 68 mm[Hg] [place] Lalit DO Work Phone: [facility] 03-14-2023 10:46-0400 Heart rate 66 /min Komal Lalit DO Work Phone: [facility] 03-14-2023 10:46-0400 SaO2% (BldA) [Mass fraction] 99 % [place] Lalit DO Work Phone: [facility] 03-14-2023 10:46-0400 Systolic blood pressure 142 mm[Hg] [place] Lalit DO Work Phone: [facility] 03-07-2023 11:02-0400 Body height 162.6 cm Komal Lalit DO Work Phone: [facility] 03-07-2023 11:02-0400 Body temperature 98.2 [degF] [place] Lalit DO Work Phone: [facility] 03-07-2023 11:02-0400 Body weight 89.81 kg [place] Lalit DO Work Phone: [facility] 03-07-2023 11:02-0400 Diastolic blood pressure 60 mm[Hg] [place] Lalit DO Work Phone: [facility] 03-07-2023 11:02-0400 Heart rate 61 /min Komal Lalit DO Work Phone: [facility] 03-07-2023 11:02-0400 SaO2% (BldA) [Mass fraction] 98 % [place] Lalit DO Work Phone: [facility] 03-07-2023 11:02-0400 Systolic blood pressure 130 mm[Hg] Komal Lalit DO Work Phone: [facility] 12-08-2022 15:59-0400 Body height 165.1 cm Charley Parker MACHINE TESTER - CARDIOVASCULAR DISEASE SPECIALIST Work Phone: [facility] 12-08-2022 15:59-0400 Body mass index (BMI) [Ratio] 31.95 kg/m2 Charley Jesusk MACHINE TESTER - CARDIOVASCULAR DISEASE SPECIALIST Work Phone: [facility] 12-08-2022 15:59-0400 Body weight 87.09 kg Charley Parker MACHINE TESTER - CARDIOVASCULAR DISEASE SPECIALIST Work Phone: [facility] 11-19-2022 09:14-0400 Diastolic blood pressure 61 mm[Hg] Ajit Nesheim DO Work Phone: [facility] 11-19-2022 09:14-0400 Heart rate 64 /min Ajit Nesheim DO Work Phone: [facility] 11-19-2022 09:14-0400 Systolic blood pressure 146 mm[Hg] Ajit Nesheim DO Work Phone: [employer] 11-18-2022 19:17-0400 Body temperature 98.4 [degF] Ajit Nesheim DO Work Phone: [facility] 11-18-2022 19:17-0400 Respiratory rate 18 /min Ajit Nesheim DO Work Phone: [facility] 11-18-2022 19:17-0400 SaO2% (BldA) [Mass fraction] 99 % Ajit Nesheim DO Work Phone: [employer] [facility] 09-30-2022 11:14-0500 Body mass index (BMI) [Ratio] 31.95 kg/m2 Charley Jesusk MACHINE TESTER - CARDIOVASCULAR DISEASE SPECIALIST Work Phone: [facility] 09-30-2022 11:14-0500 Body weight 87.09 kg Charley Jesusk MACHINE TESTER - CARDIOVASCULAR DISEASE SPECIALIST Work Phone: [facility] 09-30-2022 11:14-0500 Diastolic blood pressure 70 mm[Hg] Charley Elena MACHINE TESTER - CARDIOVASCULAR DISEASE SPECIALIST Work Phone: [employer] [facility] 09-30-2022 11:14-0500 Heart rate 74 /min Charley Elena MACHINE TESTER - CARDIOVASCULAR DISEASE SPECIALIST Work Phone: [facility] 09-30-2022 11:14-0500 Respiratory rate 16 /min Charley Elena MACHINE TESTER - CARDIOVASCULAR DISEASE SPECIALIST Work Phone: [facility] 09-30-2022 11:14-0500 SaO2% (BldA) [Mass fraction] 97 % Charley Villalpandolak MACHINE TESTER - CARDIOVASCULAR DISEASE SPECIALIST Work Phone: [facility] [facility] 09-30-2022 11:14-0500 Systolic blood pressure 138 mm[Hg] Charley Elena MACHINE TESTER - CARDIOVASCULAR DISEASE SPECIALIST Work Phone: [facility] 08-16-2022 11:14-0500 Body height 162.6 cm [facility] DO Work Phone: [facility] 08-16-2022 11:14-0500 Body temperature 98.2 [degF] Komal Lalit DO Work Phone: [facility] 08-16-2022 11:14-0500 Body weight 86.18 kg [place] Lalit DO Work Phone: [facility] 08-16-2022 11:14-0500 Diastolic blood pressure 62 mm[Hg] [place] Lalit DO Work Phone: [facility] 08-16-2022 11:14-0500 Heart rate 67 /min [place] Lalit DO Work Phone: [facility] 08-16-2022 11:14-0500 SaO2% (BldA) [Mass fraction] 98 % Komal Lalit DO Work Phone: [facility] 08-16-2022 11:14-0500 Systolic blood pressure 130 mm[Hg] [place] Lalit DO Work Phone: [facility] 05-03-2022 11:10-0400 Body height 162.6 cm [place] Lalit DO Work Phone: [facility] 05-03-2022 11:10-0400 Body temperature 97.81 [degF] [place] Lalit DO Work Phone: [facility] 05-03-2022 11:10-0400 Body weight 85.28 kg [place] Lalit DO Work Phone: [facility] 05-03-2022 11:10-0400 Diastolic blood pressure 58 mm[Hg] [place] Lalit DO Work Phone: [facility] 05-03-2022 11:10-0400 Heart rate 63 /min Komal Lalit DO Work Phone: [facility] 05-03-2022 11:10-0400 SaO2% (BldA) [Mass fraction] 96 % Komal Lalit DO Work Phone: [facility] 05-03-2022 11:10-0400 Systolic blood pressure 118 mm[Hg] [place] Lalit DO Work Phone: [facility] 12-22-2021 15:08-0400 Body temperature 96.21 [degF] LINWOOD Tejeda MD Work Phone: [facility] 12-22-2021 15:08-0400 Diastolic blood pressure 58 mm[Hg] LINWOOD Tejeda MD Work Phone: [facility] 12-22-2021 15:08-0400 Heart rate 67 /min LINWOOD Tejeda MD Work Phone: [facility] 12-22-2021 15:08-0400 Respiratory rate 18 /min LINWOOD Tejeda MD Work Phone: [facility] 12-22-2021 15:08-0400 SaO2% (BldA) [Mass fraction] 99 % LINWOOD Tejeda MD Work Phone: [facility] 12-22-2021 15:08-0400 Systolic blood pressure 137 mm[Hg] LINWOOD Tejeda MD Work Phone: [facility] 12-21-2021 13:11-0400 Body height 165.1 cm LIN[place] Tejeda MD Work Phone: [facility] 12-21-2021 06:28-0400 Body mass index (BMI) [Ratio] 32.57 kg/m2 [place] Tejeda MD Work Phone: [facility] 12-21-2021 06:28-0400 Body weight 88.77 kg [place] Tejeda MD Work Phone: [facility] 11-30-2021 13:20-0400 Body temperature 98.29 [degF] Komal Lalit DO Work Phone: [facility] 11-30-2021 13:20-0400 Body weight 89.36 kg [place] Lalit DO Work Phone: [facility] 11-30-2021 13:20-0400 Diastolic blood pressure 78 mm[Hg] Komal Lalit DO Work Phone: [facility] 11-30-2021 13:20-0400 Heart rate 67 /min Komal Lalit DO Work Phone: [facility] 11-30-2021 13:20-0400 SaO2% (BldA) [Mass fraction] 97 % Komal Lalit DO Work Phone: [facility] 11-30-2021 13:20-0400 Systolic blood pressure 142 mm[Hg] Komal Lalit DO Work Phone: [facility] 09-03-2021 14:16-0500 Body height 162.6 cm [place] Lalit DO Work Phone: [facility] 09-03-2021 14:16-0500 Body temperature 96.91 [degF] [place] Lalit DO Work Phone: [facility] 09-03-2021 14:16-0500 Body weight 89.81 kg Komal Lalit DO Work Phone: [facility] 09-03-2021 14:16-0500 Diastolic blood pressure 78 mm[Hg] Komal Lalit DO Work Phone: [facility] 09-03-2021 14:16-0500 Heart rate 86 /min Komal Lalit DO Work Phone: [facility] 09-03-2021 14:16-0500 SaO2% (BldA) [Mass fraction] 97 % [place] Lalit DO Work Phone: [facility] 09-03-2021 14:16-0500 Systolic blood pressure 144 mm[Hg] [place] Lalit DO Work Phone: [facility] 05-28-2021 13:39-0400 Body height 162.6 cm Komal Lalit DO Work Phone: [facility] 05-28-2021 13:39-0400 Body temperature 98.4 [degF] [place] Lalit DO Work Phone: [facility] 05-28-2021 13:39-0400 Body weight 90.72 kg [place] Lalit DO Work Phone: [facility] 05-28-2021 13:39-0400 Diastolic blood pressure 72 mm[Hg] [place] Lalit DO Work Phone: [facility] 05-28-2021 13:39-0400 Heart rate 78 /min Komal Lalit DO Work Phone: [facility] 05-28-2021 13:39-0400 SaO2% (BldA) [Mass fraction] 98 % Komal Lalit DO Work Phone: [facility] 05-28-2021 13:39-0400 Systolic blood pressure 130 mm[Hg] [place] Lalit DO Work Phone: [facility] 02-25-2021 11:21-0400 Diastolic blood pressure 80 mm[Hg] [place] Lalit DO Work Phone: [facility] 02-25-2021 11:21-0400 Systolic blood pressure 140 mm[Hg] Komal Lalit DO Work Phone: [facility] 02-25-2021 10:42-0400 Body height 162.6 cm [place] Lalit DO Work Phone: [facility] 02-25-2021 10:42-0400 Body temperature 97.2 [degF] Komal Lalit DO Work Phone: [facility] 02-25-2021 10:42-0400 Body weight 92.08 kg Komal Lalit DO Work Phone: [facility] 02-25-2021 10:42-0400 Heart rate 65 /min Komal Lalit DO Work Phone: [facility] 02-25-2021 10:42-0400 SaO2% (BldA) [Mass fraction] 98 % [place] Lalit DO Work Phone: [facility] 11-26-2020 11:52-0400 Diastolic blood pressure 50 mm[Hg] [place] Lalit Work Phone: [facility] 11-26-2020 11:52-0400 Systolic blood pressure 130 mm[Hg] [place] Lalit Work Phone: [facility] 11-26-2020 11:33-0400 Body height 162.6 cm Komal Lalit Work Phone: [facility] 11-26-2020 11:33-0400 Body temperature 96.21 [degF] [place] Lalit Work Phone: [facility] 11-26-2020 11:33-0400 Body weight 90.27 kg [place] Lalit Work Phone: [facility] 11-26-2020 11:33-0400 Heart rate 70 /min [place] Lalit Work Phone: [facility] 11-26-2020 11:33-0400 SaO2% (BldA) [Mass fraction] 97 % Komal Lalit Work Phone: [facility] 08-25-2019 19:19-0500 Diastolic blood pressure 78 mm[Hg] Komal Lalit DO Work Phone: [facility] Work Phone: 08-25-2019 19:19-0500 Heart rate 78 /min Komal Lalit DO Work Phone: [facility] Work Phone: 08-25-2019 19:19-0500 Respiratory rate 18 /min [place] Lalit DO Work Phone: [facility] Work Phone: 08-25-2019 19:19-0500 SaO2% (BldA) [Mass fraction] 98 % [place] Lalit DO Work Phone: [facility] Work Phone: 08-25-2019 19:19-0500 Systolic blood pressure 144 mm[Hg] Komal Lalit DO Work Phone: [facility] Work Phone: 08-25-2019 15:49-0500 Body mass index (BMI) [Ratio] 33.64 kg/m2 [place] Lalit DO Work Phone: [facility] Work Phone: 08-25-2019 15:49-0500 Body temperature 98.1 [degF] [place] Lalit DO Work Phone: [facility] Work Phone: 08-25-2019 15:49-0500 Body weight 88.91 kg Komal Cohn DO Work Phone: [facility] Work Phone: Encounters Encounter Date Encounter Type Care Provider Facility Start: 01-11-2025 End: 01-11-2025 Office outpatient visit 15 minutes Meet Madonna Poole MD Work Phone: [facility] [place] Comment on above: Second degree heart block (Primary Dx); Essential hypertension; Cardiac pacemaker in situ Start: 01-11-2025 End: 01-11-2025 ambulatory MEET POOLE [facility] Start: 01-10-2025 ambulatory Julieth QURESHI Facili ty:[facility] Start: 12-25-2024 ambulatory Julieth QURESHI Facili ty:[facility] Start: 11-29-2024 End: 11-29-2024 ambulatory [facility] Start: 11-26-2024 [facility] Start: 11-26-2024 End: 11-26-2024 ambulatory Julieth QURESHI Facility:[facility] Start: 11-12-2024 Registered Referred Julieth Olmedo MD [facility] Start: 11-12-2024 End: 11-12-2024 ambulatory Julieth QURESHI Facility:[facility] Start: 11-02-2024 End: 11-02-2024 ambulatory Julieth Olmedo MD [facility] Work Phone: Start: 11-02-2024 End: 11-02-2024 Departed Referred Julieth [facility]o MD -[facility] Start: 11-02-2024 [facility] Start: 11-02-2024 End: 11-02-2024 ambulatory Julieth QURESHI Facility:[facility] Start: 10-26-2024 End: 10-26-2024 ambulatory Julieth Olmedo MD [facility] Work Phone: Start: 10-26-2024 End: 10-26-2024 Departed Referred Julieth Olmedo MD -[facility] Start: 10-26-2024 Registered Referred Julieth Olmedo MD -[facility] Start: 10-26-2024 End: 10-26-2024 ambulatory Julieth QURESHI Facility:[facility] Start: 10-15-2024 End: 10-15-2024 ambulatory Julieth Olmedo MD [facility] Work Phone: Start: 10-15-2024 End: 10-15-2024 Departed Referred Julieth Olmedo MD -[facility] Start: 10-15-2024 Registered Referred Julieth Olmedo MD -[facility] Start: 10-15-2024 End: 10-15-2024 ambulatory Julieth QURESHI Facility:[facility] Start: 10-05-2024 End: 10-05-2024 ambulatory Julieth Olmedo MD [facility] Work Phone: Start: 10-05-2024 End: 10-05-2024 Departed Referred Julieth [facility]o MD [facility] Start: 10-05-2024 End: 10-05-2024 ambulatory Julieth QURESHI Facility:[facility] Start: 10-01-2024 End: 10-25-2024 Telephone encounter Jose Joel MD Work Phone: [facility] Comment on above: Med Management Start: 09-25-2024 ambulatory Julieth QURESHI Facili ty:[facility] Start: 09-25-2024 Registered Referred Julieth Ol[facility]o MD [facility] Start: 08-30-2024 End: 08-30-2024 ambulatory [facility] Start: 08-07-2024 ambulatory Julieth QURESHI Facili ty:[facility] Start: 08-07-2024 Registered Referred Julieth Olmedo MD [facility] Start: 08-03-2024 End: 08-03-2024 Home visit Gogo Barbosa RN [employer] Comment on above: Transition Of Care ( SNF Update (Detention resident)) Start: 08-03-2024 End: 08-03-2024 ambulatory Gogo Barbosa RN [employer] Start: 08-03-2024 [facility] Start: 08-02-2024 ambulatory Julieth QURESHI Facili ty:[facility] Start: 08-02-2024 Registered Referred Julieth [facility]o [facility] Start: 07-25-2024 ambulatory Julieth QURESHI Facili ty:[facility] Start: 07-25-2024 Registered Referred Julieth Olmedo MD [facility] Start: 07-20-2024 End: 07-20-2024 Departed Referred Julieth Olmedo MD [facility] Start: 07-19-2024 End: 07-20-2024 ambulatory Julieth QURESHI Facility:[facility] Start: 07-19-2024 Registered Referred Julieth Olmedo MD [facility] Start: 07-18-2024 End: 07-18-2024 Departed Referred Julieth [facility]o MD [facility] Start: 07-18-2024 End: 07-18-2024 ambulatory Julieth QURESHI Facility:[facility] Start: 07-17-2024 End: 07-17-2024 Departed Referred Julieth [facility]o [facility] Start: 07-17-2024 End: 07-17-2024 ambulatory Julieth QURESHI Facility:[facility] Start: 2024 End: 2024 ambulatory Gogo Barbosa RN [employer] Start: 2024 End: 2024 Home visit Ggoo Barbosa RN [employer] Comment on above: Transition Of Care ( [facility] Discharge to SNF) Start: 07-11-2024 ambulatory Julieth QURESHI Facili ty:[facility] Start: 07-11-2024 [facility]: 07-10-2024 ambulatory Julieth Eli ty:[facility] Start: 07-09-2024 ambulatory Julieth Eli ty:[facility] Start: 06-26-2024 End: 06-26-2024 Evaluation and management of inpatient [facility] Start: 06-25-2024 End: 07-04-2024 Evaluation and management of inpatient Kaiden David MD Work Phone: [facility] Cardiac Progressive Care Unit PCU 2E Start: 06-20-2024 End: 06-20-2024 [facility] Start: 06-11-2024 End: 06-11-2024 ambulatory MAROA MARYAN COHN Facility:[facility] Start: 06-11-2024 End: 06-11-2024 Patient encounter procedure Komal Maryan Cohn DO Work Phone: [facility] [place] Comment on above: Primary hypertension (Primary Dx); Systolic murmur; Symptomatic sinus bradycardia; CKD (chronic kidney disease) stage 4, GFR 15-29 ml/min ([facility]); Class 1 obesity with body mass index (BMI) of 32.0 to 32.9 in adult, unspecified obesity type, unspecified whether serious comorbidity present Start: 06-06-2024 End: 06-06-2024 Telephone encounter Komal Cohn DO Work Phone: [facility] [place] Comment on above: Home Care Arrangemen ts Start: 06-01-2024 End: 06-01-2024 Orders Only Kyung Hogan MACHINE TESTER - CARDIOVASCULAR DISEASE SPECIALIST Work Phone: [facility] Comment on above: BARRY (acute kidney in jury) (HCC) (Primary Dx) Start: 05-29-2024 End: 06-01-2024 Evaluation and management of inpatient Kimi Polk DO Work Phone: [facility] Cardiac Post Intervention Progressive Care Unit CPI PCU 4W Comment on above: Symptomatic sinus br adycardia (Primary Dx); Elevated troponin; Elevated brain natriuretic peptide (BNP) level Start: 04-27-2024 End: 04-27-2024 Patient encounter procedure Komal Cohn DO Work Phone: [facility] [place] Comment on above: Primary hypertension (Primary Dx); Type 2 diabetes mellitus with stage 4 chronic kidney disease, without long-term current use of insulin ([facility]); CKD (chronic kidney disease) stage 4, GFR 15-29 ml/min ([facility]); Cellulitis of left lower leg; Class 1 obesity with body mass index (BMI) of 33.0 to 33.9 in adult, unspecified obesity type, unspecified whether serious comorbidity present; Bilateral leg edema; Systolic murmur; Other depression Start: 04-27-2024 End: 04-27-2024 ambulatory KOMAL COHN Facility:[facility] Start: 04-25-2024 End: 04-25-2024 ambulatory LECRIS DOBSON [facility] Start: 04-25-2024 End: 04-25-2024 Subsequent hospital visit by physician Le Hernandez CNP Work Phone: [facility] Vascular Lab Comment on above: Chronic kidney disea se, stage 4 (severe) ([facility]) Start: 04-18-2024 End: 04-18-2024 ambulatory JOSE JOEL [facility] Start: 04-18-2024 End: 04-18-2024 Subsequent hospital visit by physician Jose Joel MD Work Phone: [facility] Non-Invasive Cardiology Comment on above: Coronary artery dise ase involving coronary bypass graft of [place] heart without angina pectoris; Nonrheumatic aortic valve stenosis Start: 04-12-2024 End: 04-13-2024 Refill Komal Cohn DO Work Phone: [facility] [place] Comment on above: Refill Request Start: 04-07-2024 End: 04-10-2024 Refill Komal Cohn DO Work Phone: [facility] [place] Comment on above: Refill Request; Medi cation Question (Citalopram) Start: 04-06-2024 End: 07-06-2024 Transcribe Orders Le Dobson MACHINE TESTER - CARDIOVASCULAR DISEASE SPECIALIST Work Phone: [facility] Scheduling Comment on above: Chronic kidney disea se, stage 4 (severe) (HCC) (Primary Dx) Start: 03-21-2024 End: 03-21-2024 Telephone encounter Jose Joel MD Work Phone: [facility] Comment on above: Results Start: 03-16-2024 End: 03-16-2024 Patient encounter procedure Komal Cohn DO Work Phone: [facility] [place] Comment on above: Cellulitis of left l ower leg (Primary Dx) Start: 03-16-2024 End: 03-16-2024 ambulatory KOMAL COHN Facility:[facility] Start: 03-15-2024 Telephone encounter Komal Cohn DO Work Phone: [facility] [place] Comment on above: Orders (Handicap suad card requested ) Start: 03-14-2024 End: 03-14-2024 ambulatory Latonya Rosado RN Engineering Technical Writer Start: 03-14-2024 Home visit Latonya Rosado RN [facility] Comment on above: Transition Of Care B i-weekly phone contact (Recurring) for Transitional Care Management Start: 03-14-2024 End: 03-14-2024 Office outpatient visit 25 minutes Jose Joel MD Work Phone: [facility] Comment on above: Nonrheumatic aortic valve stenosis (Primary Dx); Coronary artery disease involving coronary bypass graft of [place] heart without angina pectoris Start: 02-29-2024 ambulatory Latonya Rosado RN [facility] Start: 02-29-2024 Home visit Latonya Rosado RN [facility] Comment on above: Transition Of Care B i-weekly phone contact (Recurring) for Transitional Care Management Start: 02-27-2024 End: 02-27-2024 Patient encounter procedure Komal Maryan Lalit DO Work Phone: [facility] [place] Comment on above: Primary hypertension (Primary Dx); Cellulitis of right lower extremity; Acute cystitis without hematuria; Class 1 obesity with body mass index (BMI) of 34.0 to 34.9 in adult, unspecified obesity type, unspecified whether serious comorbidity present Start: 02-27-2024 End: 02-27-2024 ambulatory [facility] Facility:[facility] Start: 02-15-2024 ambulatory Gogo Barbosa RN Amb ulatory Care Start: 02-15-2024 Home visit Gogo Barbosa RN [facility] Comment on above: Transition Of Care ( [facility]charged from [facility] to Home ) Transition Of Care ( [place] SNF 02/13/24) Initial phone contact for Transitional Care Management Start: 02-15-2024 Telephone encounter [place] Jg mejiamaria victoria Cohn DO Work Phone: [employer] Technical [employer] Comment on above: prescription Start: 02-08-2024 ambulatory Sue Claudio RN Engineering Technical Writer Start: 02-08-2024 Home visit Sue Claudio RN Engineering Technical Writer Comment on above: Transition Of Care ( [facility] D/C to SNF 02/02/24) Start: 01-28-2024 End: 02-02-2024 Evaluation and management of inpatient Surjit Sanchez MD Work Phone: [facility] Medical Surgical Unit MSU 4S Comment on above: Cellulitis of right lower extremity (Primary Dx); Acute cystitis without hematuria Start: 01-26-2024 End: 01-26-2024 Subsequent hospital visit by physician Komal Cohn DO Work Phone: [facility] US Imaging Comment on above: Chronic kidney disea se, stage 4 (severe) (HCC) Start: 01-26-2024 End: 01-26-2024 ambulatory [facility] Start: 01-17-2024 End: 04-17-2024 Transcribe Orders Komal Cohn DO Work Phone: [facility] Central Scheduling Comment on above: Chronic kidney disea se, stage 4 (severe) (HCC) (Primary Dx) Start: 01-06-2024 Telephone encounter Komal Cohn DO Work Phone: [facility] [place] Comment on above: Consult (Consult to nephrology, ckd chronic kidney disease state 4 gfr 15-29 confirm [id number]) Consult (Consult to ophthalmology, screening for diabetic retinopathy confirm [id number]) Start: 01-06-2024 End: 01-06-2024 Patient encounter procedure Komal Cohn DO Work Phone: [facility] [place] Comment on above: Type 2 diabetes luz itus with stage 3 chronic kidney disease, without long-term current use of insulin, unspecified whether stage 3a or 3b CKD (HCC) (Primary Dx); Screening for diabetic retinopathy; Primary hypertension; Vitamin B12 deficiency; Abnormal level of blood mineral; Other seasonal allergic rhinitis; 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); Mixed incontinence; Gastro-esophageal reflux disease with esophagitis, without bleeding; Bilateral leg edema; Hyperlipidemia, mixed; CKD (chronic kidney disease) stage 4, GFR 15-29 ml/min (HCC) Start: 01-06-2024 End: 01-06-2024 ambulatory MAROA MARYAN COHN Facility:[facility] Start: 12-16-2023 Telephone encounter Komal Cohn DO Work Phone: [facility] Start: 12-07-2023 End: 12-07-2023 Patient encounter procedure Komal Cohn DO Work Phone: [facility] [place] Comment on above: Dysuria (Primary Dx) ; Acute UTI; Chronic kidney disease, stage 3b (HCC); Bilateral leg edema; Other depression Start: 12-07-2023 End: 12-07-2023 ambulatory MAROA MARYAN COHN Facility:[facility] Start: 12-06-2023 Refill Jose davila MD Work Phone: [facility] Comment on above: Coronary artery dise ase involving coronary bypass graft of [place] heart without angina pectoris Start: 09-28-2023 Refill Komal Cohn DO Work Phone: [facility] [place] Comment on above: Refill Request Start: 07-26-2023 Refill Komal Cohn DO Work Phone: [facility] [place] Comment on above: Refill Request Start: 07-14-2023 Refill Komal Cohn DO Work Phone: [facility] [place] Comment on above: Refill Request Start: 06-29-2023 Telephone encounter Komal Cohn DO Work Phone: [facility] [place] Comment on above: Results (antibiotics ) Start: 06-27-2023 End: 06-27-2023 Patient encounter procedure Komal Cohn DO Work Phone: [facility] [place] Comment on above: Type 2 diabetes luz itus with stage 3 chronic kidney disease, without long-term current use of insulin, unspecified whether stage 3a or 3b CKD (HCC) (Primary Dx); Primary hypertension; Recurrent UTI (urinary tract infection); Heart murmur; Obesity, Class I, BMI 30-34.9 Start: 04-26-2023 Refill Komal Cohn DO Work Phone: [facility] [place] Comment on above: Refill Request Start: 03-30-2023 End: 03-30-2023 Office outpatient visit 25 minutes Jose Joel MD Work Phone: [facility] Comment on above: Nonrheumatic aortic valve stenosis (Primary Dx) Start: 03-14-2023 End: 03-14-2023 Patient encounter procedure Komal Cohn DO Work Phone: [facility] [place] Comment on above: Bilateral leg edema (Primary Dx); Cellulitis of skin; Class 1 obesity with body mass index (BMI) of 33.0 to 33.9 in adult, unspecified obesity type, unspecified whether serious comorbidity present Start: 03-08-2023 Telephone encounter Komal Cohn DO Work Phone: [facility] [place] Comment on above: Results Start: 03-07-2023 End: 03-07-2023 Subsequent hospital visit by physician Komal Lalit DO Work Phone: [facility] Vascular Lab Comment on above: Other specified soft tissue disorders Start: 03-07-2023 End: 03-07-2023 Patient encounter procedure Komal Cohn DO Work Phone: [facility] [place] Comment on above: Urinary frequency (P rimary Dx); Right leg swelling; Cellulitis of skin; Bilateral leg edema; Class 1 obesity with body mass index (BMI) of 33.0 to 33.9 in adult, unspecified obesity type, unspecified whether serious comorbidity present Other specified soft tissue disorders (Primary Dx) Start: 03-07-2023 Refill Komal Cohn DO Work Phone: [facility] [place] Comment on above: Refill Request Start: 03-02-2023 Telephone encounter Komal Cohn DO Work Phone: [facility] [place] Comment on above: Appointment Start: 02-18-2023 Refill Komal calderon Lalit DO Work Phone: [facility] [place] Comment on above: Refill Request Start: 12-13-2022 Refill Komal Mcbriderio DO Work Phone: [facility] [place] Comment on above: Refill Request Start: 12-09-2022 Telephone encounter Charley Parker MACHINE TESTER - CARDIOVASCULAR DISEASE SPECIALIST Work Phone: [facility] Comment on above: Results (Echo) Start: 12-08-2022 End: 12-08-2022 Subsequent hospital visit by physician Charley Parker MACHINE TESTER - CARDIOVASCULAR DISEASE SPECIALIST Work Phone: [facility] Non-Invasive Cardiology Comment on above: Nonrheumatic aortic valve stenosis Start: 11-22-2022 Refill [place] Gerar d Lalit DO Work Phone: [facility] [place] Comment on above: Refill Request Start: 11-17-2022 End: 11-19-2022 Emergency department patient visit Ajit Gray DO Work Phone: [facility] CDU Comment on above: BARYR (acute kidney in jury) (CMS/HCC) (HCC) (Primary Dx); Cystitis Start: 11-10-2022 Telephone encounter Komal Cohn DO Work Phone: [facility] [place] Comment on above: Patient Question Start: 10-18-2022 Refill Komal Gerar d Lalit DO Work Phone: [facility] [place] Comment on above: Refill Request Start: 09-30-2022 End: 09-30-2022 Office outpatient visit 25 minutes Charley Parker MACHINE TESTER - CARDIOVASCULAR DISEASE SPECIALIST Work Phone: [facility] Comment on above: Nonrheumatic aortic valve stenosis (Primary Dx) Start: 09-18-2022 Refill Komal Gerar d Lalit DO Work Phone: [facility] [place] Comment on above: Refill Request Start: 09-16-2022 Refill Komal Gerar d Lalit DO Work Phone: [facility] [place] Comment on above: Refill Request Start: 08-23-2022 Refill [place] Gerar d Lalit DO Work Phone: [facility] [place] Comment on above: Refill Request Start: 08-19-2022 Refill Komal Cohn DO Work Phone: [facility] [place] Comment on above: Refill Request (Charlee rtan) Start: 08-16-2022 Refill Komal Cohn DO Work Phone: [facility] [place] Comment on above: Refill Request Start: 08-16-2022 End: 08-16-2022 Patient encounter procedure Komal Cohn DO Work Phone: [facility] [place] Comment on above: Primary hypertension (Primary Dx); Hyperlipidemia, mixed; Bilateral leg edema; Hypothyroidism, acquired; Acute non-recurrent maxillary sinusitis Start: 08-03-2022 ambulatory Komal Cohn DO Work Phone: [employer] Start: 05-03-2022 End: 05-03-2022 Patient encounter procedure Komal Cohn DO Work Phone: [facility] [place] Comment on above: Primary hypertension (Primary Dx); Hyperlipidemia, mixed; Bilateral leg edema; Type 2 diabetes mellitus without complication, without long-term current use of insulin (HCC) Start: 04-29-2022 Telephone encounter Komal Cohn DO Work Phone: [facility] [place] Comment on above: Patient Question Start: 04-28-2022 Telephone encounter Komal Cohn DO Work Phone: [facility] [place] Comment on above: Patient Update Start: 04-27-2022 Telephone encounter Komal Cohn DO Work Phone: [facility] [place] Comment on above: Patient Update; Orde rs Start: 04-14-2022 Telephone encounter Komal Cohn DO Work Phone: [facility] Comment on above: Orders (Increase las ix x 1 wk, bmp in one wk/) Start: 04-13-2022 Refill Komal calderon Lalit DO Work Phone: [facility] Comment on above: Refill Request Start: 02-21-2022 Refill Komal calderon Lalit DO Work Phone: [facility] Comment on above: Refill Request Start: 02-19-2022 Telephone encounter Komal Mcbriderio DO Work Phone: [facility] Comment on above: Home Care Start: 01-19-2022 Telephone encounter Komal Mcbriderio DO Work Phone: [facility] Comment on above: Patient Update Start: 01-05-2022 Telephone encounter Komal Mcbriderio DO Work Phone: [facility] Comment on above: Results Start: 01-01-2022 Telephone encounter Komal Mcbriderio DO Work Phone: [facility] Comment on above: Results; Orders Start: 12-24-2021 Refill Komal calderon Lalit DO Work Phone: [facility] Comment on above: Refill Request Start: 12-23-2021 Telephone encounter Komal Mcbriderio DO Work Phone: [facility] Comment on above: Medication Problem Start: 12-15-2021 Refill Komalasia calderon Lalit DO Work Phone: [facility] Comment on above: Refill Request Start: 12-13-2021 End: 12-22-2021 Evaluation and management of inpatient J Azra Tejeda MD Work Phone: [facility] Comment on above: Altered mental statu s, unspecified altered mental status type (Primary Dx); Urinary tract infection without hematuria, site unspecified; Acute cystitis without hematuria Start: 11-30-2021 End: 11-30-2021 Patient encounter procedure Komal Cohn DO Work Phone: [facility] Comment on above: Primary hypertension (Primary Dx); Mixed hyperlipidemia; Statin intolerance; Myalgias Start: 11-20-2021 Refill Komalasia Cohn DO Work Phone: [facility] Comment on above: Refill Request Start: 09-04-2021 Refill [place] Cohn DO Work Phone: [facility] Comment on above: Refill Request; Refi ll Request Start: 09-04-2021 Telephone encounter [place] Jg Cohn DO Work Phone: [facility] Comment on above: Consult (Cardiology) Start: 09-03-2021 End: 09-03-2021 Patient encounter procedure Koaml Cohn DO Work Phone: [facility] Comment on above: Type 2 diabetes luz itus without complication, without long- term current use of insulin (HCC) (Primary Dx); Congestive heart failure, unspecified HF chronicity, unspecified heart failure type (HCC); Hyperlipidemia, mixed; Primary hypertension; Hypothyroidism, acquired Start: 07-28-2021 Refill Komalasia Cohn DO Work Phone: [facility] Comment on above: Refill Request; Refi ll Request Start: 07-18-2021 Refill [place] Cohn DO Work Phone: [facility] Comment on above: Refill Request; Refi ll Request Start: 05-28-2021 End: 05-28-2021 Patient encounter procedure Komalasia Cohn DO Work Phone: [facility] Comment on above: Primary hypertension (Primary Dx); Hyperlipidemia, mixed; Type 2 diabetes mellitus without complication, without long-term current use of insulin (HCC) Start: 03-23-2021 End: 03-23-2021 Refill [place] Cohn DO Work Phone: [facility] Comment on above: Refill Request Start: 02-25-2021 End: 02-25-2021 Refill [place] Cohn DO Work Phone: [facility] Comment on above: Refill Request Start: 02-25-2021 End: 02-25-2021 Patient encounter procedure Komalasia Cohn DO Work Phone: [facility] Comment on above: Primary hypertension (Primary Dx); Type 2 diabetes mellitus without complication, without long-term current use of insulin (HCC); Generalized edema; Hypokalemia Start: 02-21-2021 End: 02-21-2021 Refill [place] Cohn DO Work Phone: [facility] Comment on above: Refill Request Start: 11-26-2020 End: 11-26-2020 Patient encounter procedure [place] Cohn Work Phone: [facility] Comment on above: Essential hypertensi on (Primary Dx); Type 2 diabetes mellitus without complication, without long-term current use of insulin (HCC); Seasonal allergies Start: 11-24-2020 End: 11-24-2020 Refill [place] Cohn Work Phone: [facility] Comment on above: Refill Request Start: 11-05-2020 End: 11-05-2020 Refill Komalasia Cohn Work Phone: [facility] Comment on above: Refill Request Start: 09-24-2020 End: 09-24-2020 Refill Komal Cohn Work Phone: [facility] Comment on above: Refill Request Start: 09-23-2020 End: 09-23-2020 Refill Komal Cohn Work Phone: [facility] Comment on above: Refill Request Start: 09-23-2020 End: 09-23-2020 Telephone encounter Komal Cohn Work Phone: [facility] Comment on above: Results Start: 09-17-2020 End: 09-17-2020 Patient encounter procedure External Provider [facility] Start: 09-17-2020 Results Only External Provider Exter nal-[facility] Start: 09-03-2020 End: 09-03-2020 Telephone encounter Komal Cohn Work Phone: [facility] Comment on above: Orders (PTH) Patient Question (or emmanuel for edilson chow) Start: 08-29-2020 End: 08-29-2020 Refill Komal Cohn Work Phone: [facility] Comment on above: Refill Request Start: 08-29-2020 End: 08-29-2020 Subsequent hospital visit by physician Komal Cohn Work Phone: [facility] Comment on above: Acute embolism and t hrombosis of other specified deep vein of right lower extremity (HCC) Start: 08-25-2019 End: 08-25-2019 Emergency department patient visit Komal Cohn DO Work Phone: [facility] Comment on above: Fall, initial encoun ter (Primary Dx); Closed head injury, initial encounter; Bilateral contusion of ribs; Strain of right shoulder, initial encounter; Contusion of left knee, initial encounter; Traumatic hematoma of right eyelid, initial encounter Procedures Date Procedure Procedure Detail Performing Clinician Start: 01-11-2025 Follow-up visit Follow-up MEET [facility] Start: 11-26-2024 SARS-CoV-2, Influenz a & RSV (PCR) Julieth Olmedo MD Start: 07-04-2024 Glucose quantitative blood xcpt reagent strip Joni Gutierrez MD Work Phone: Start: 07-04-2024 Comprehensive metabolic panel Fadia Stringer MD Work Phone: Start: 07-03-2024 Glucose quantitative blood xcpt reagent strip Joni Gutierrez MD Work Phone: Start: 07-03-2024 Glucose quantitative blood xcpt reagent strip Joni Gutierrez MD Work Phone: Start: 07-03-2024 Glucose quantitative blood xcpt reagent strip Joni Gutierrez MD Work Phone: Start: 07-03-2024 Glucose quantitative blood xcpt reagent strip Joni Gutierrez MD Work Phone: Start: 07-03-2024 Glucose quantitative blood xcpt reagent strip Joni Gutierrez MD Work Phone: Start: 07-03-2024 Comprehensive metabolic panel Fadia Stringer MD Work Phone: Start: 07-02-2024 Glucose quantitative blood xcpt reagent strip Joni Gutierrez MD Work Phone: Start: 07-02-2024 Glucose quantitative blood xcpt reagent strip Joni Gutierrez MD Work Phone: Start: 07-02-2024 Glucose quantitative blood xcpt reagent strip Joni Gutierrez MD Work Phone: Start: 07-02-2024 Glucose quantitative blood xcpt reagent strip Joni Gutierrez MD Work Phone: Start: 07-02-2024 Comprehensive metabolic panel Fadia Stringer MD Work Phone: Start: 07-01-2024 Glucose quantitative blood xcpt reagent strip Joni Gutierrez MD Work Phone: Start: 07-01-2024 Glucose quantitative blood xcpt reagent strip Joni Gutierrez MD Work Phone: Start: 07-01-2024 Glucose quantitative blood xcpt reagent strip Joni Gutierrez MD Work Phone: Start: 07-01-2024 Iaadiadoo not otherw ise specified Joni Gutierrez MD Work Phone: Start: 07-01-2024 Respiratory pathogen s DNA and RNA panel - Nasopharynx by HUGO with non-probe detection Joni Gutierrez MD Work Phone: Start: 07-01-2024 Glucose quantitative blood xcpt reagent strip Yumiko Villasenor MD Work Phone: Start: 07-01-2024 Comprehensive metabolic panel Fadia Stringer MD Work Phone: Start: 06-30-2024 Glucose quantitative blood xcpt reagent strip Yumiko Villasenor MD Work Phone: Start: 06-30-2024 Glucose quantitative blood xcpt reagent strip Yumiko Villasenor MD Work Phone: Start: 06-30-2024 Glucose quantitative blood xcpt reagent strip Yumiko Villasenor MD Work Phone: Start: 06-30-2024 Glucose quantitative blood xcpt reagent strip Yumiko Villasenor MD Work Phone: Start: 06-30-2024 Comprehensive metabolic panel Fadia Stringer MD Work Phone: Start: 06-29-2024 Glucose quantitative blood xcpt reagent strip Yumiko Villasenor MD Work Phone: Start: 06-29-2024 Glucose quantitative blood xcpt reagent strip Yumiko Villasenor MD Work Phone: Start: 06-29-2024 Glucose quantitative blood xcpt reagent strip Yumiko Villasenor MD Work Phone: Start: 06-29-2024 Glucose quantitative blood xcpt reagent strip Fadia Stringer MD Work Phone: Start: 06-29-2024 Comprehensive metabolic panel Stephanie Acierno MACHINE TESTER - CARDIOVASCULAR DISEASE SPECIALIST Work Phone: Start: 06-29-2024 Manual Differential panel - Blood Stephanie Georgeierno MACHINE TESTER - CARDIOVASCULAR DISEASE SPECIALIST Work Phone: Start: 06-28-2024 End: 06-28-2024 Blood count hematocrit Masroor Stringer M D Work Phone: Start: 06-28-2024 Blood count hematocrit Fadia Stringer MD Work Phone: Start: 06-28-2024 Blood count hematocrit Fadia Stringer MD Work Phone: Start: 06-28-2024 Glucose quantitative blood xcpt reagent strip Fadia Stringer MD Work Phone: Start: 06-28-2024 Comprehensive metabolic panel Stephanie Acierno MACHINE TESTER - CARDIOVASCULAR DISEASE SPECIALIST Work Phone: Start: 06-28-2024 Manual Differential panel - Blood Stephanie Acierno MACHINE TESTER - CARDIOVASCULAR DISEASE SPECIALIST Work Phone: Start: 06-27-2024 End: 06-27-2024 Blood count hematocrit Masroor Stringer M D Work Phone: Start: 06-27-2024 Glucose quantitative blood xcpt reagent strip Fadia Stringer MD Work Phone: Start: 06-27-2024 Blood count hematocrit Fadia Stringer MD Work Phone: Start: 06-27-2024 Glucose quantitative blood xcpt reagent strip Fadia Stringer MD Work Phone: Start: 06-27-2024 Blood count hematocrit Fadia Stringer MD Work Phone: Start: 06-27-2024 Glucose quantitative blood xcpt reagent strip Fadia Stringer MD Work Phone: Start: 06-27-2024 Comprehensive metabolic panel Stephanie Acierno MACHINE TESTER - CARDIOVASCULAR DISEASE SPECIALIST Work Phone: Start: 06-27-2024 Manual Differential panel - Blood Stephanie Acjhonathanno MACHINE TESTER - CARDIOVASCULAR DISEASE SPECIALIST Work Phone: Start: 06-27-2024 Blood count hematocrit Fadia Stringer MD Work Phone: Start: 06-27-2024 Glucose quantitative blood xcpt reagent strip Fadia Stringer MD Work Phone: Start: 06-26-2024 Compatibility each u nit electronic Donna Del Angel MACHINE TESTER - CARDIOVASCULAR DISEASE SPECIALIST Work Phone: Start: 06-26-2024 End: 06-27-2024 TRANSFUSE RED BLOOD CELLS Donna simons MACHINE TESTER - CARDIOVASCULAR DISEASE SPECIALIST Work Phone: Start: 06-26-2024 End: 06-26-2024 Blood count hematocrit aFdia Calderon Work Phone: Start: 06-26-2024 Electroencephalogram Jacques Stringer MD Work Phone: Start: 06-26-2024 End: 06-26-2024 Blood count hematocrit Fadia Calderon Work Phone: Start: 06-26-2024 Radiologic exam abdomen 1 view Fadia Stringer MD Work Phone: Start: 06-26-2024 Radiologic exam ches t single view Fadia Stringer MD Work Phone: Start: 06-26-2024 Comprehensive metabolic panel Fadia Stringer MD Work Phone: Start: 06-26-2024 Blood gases any comb ination ph pco2 po2 co2 hco3 Fadia Stringer MD Work Phone: Start: 06-26-2024 Antibody screen [facility] Comment on above: Performed By: #### L [id number] ####Claims Investigator: RUTH ANN PEOPLES ([id number])[facility] ([facility])[address] Start: 06-26-2024 Antibody screen rbc each serum technique Erinn Santoro MD Work Phone: Start: 06-26-2024 Ct abdomen & pelvis w/o contrast material Erinn Keri BRUNNER Work Phone: Start: 06-26-2024 Ct head/brain w/o co ntrast material Erinn Keri BRUNNER Work Phone: Start: 06-26-2024 End: 06-26-2024 Comprehensive metabolic panel Erinn Keri BRUNNER Work Phone: Start: 06-26-2024 End: 06-26-2024 Blood count complete auto&auto difrntl wbc Erinn Keri BRUNNER Work Phone: Start: 06-25-2024 Assay of troponin quantitative Erinn Keri BRUNNER Work Phone: Start: 06-25-2024 Blood occult peroxid ase actv qual feces 1-3 spec Erinn Keri BRUNNER Work Phone: Start: 06-25-2024 Glucose quantitative blood xcpt reagent strip Erinn Keri BRUNNER Work Phone: Start: 06-25-2024 Assay of troponin quantitative Lawson VERMA-C Work Phone: Start: 06-25-2024 Radiologic exam ches t single view Lawson VERMA-C Work Phone: Start: 06-25-2024 HC SARSCOV2&INF A&B& RSV AMP PRB Kaiden David MD Work Phone: Start: 06-25-2024 Culture bacterial qu anttative colony count urine Lawson Melvin PA-C Work Phone: Start: 06-25-2024 Urinalysis complete panel - Urine Lawson VERMA-C Work Phone: Start: 06-25-2024 Ct head/brain w/o co ntrast material Lawson Melvin PA-C Work Phone: Start: 06-25-2024 End: 06-25-2024 Comprehensive metabolic panel Lawson Campos PA-C Work Phone: Start: 06-25-2024 Ecg routine ecg w/le ast 12 lds trcg only w/o i&r Lawson Melvin PA-C Work Phone: Start: 06-01-2024 Glucose quantitative blood xcpt reagent strip Otseth Marie MD Work Phone: Start: 06-01-2024 Radiologic exam chest 2 views Kyung L Missael Hernandez CNP Work Phone: Start: 06-01-2024 Glucose quantitative blood xcpt reagent strip Otfrtasha Marie MD Work Phone: Start: 06-01-2024 Basic metabolic pane l calcium total Louise Garza MD Work Phone: Start: 06-01-2024 Ecg routine ecg w/le ast 12 lds trcg only w/o i&r Surjit Shaub DO Work Phone: Start: 05-31-2024 Glucose quantitative blood xcpt reagent strip Ariadne Marie MD Work Phone: Start: 05-31-2024 Glucose quantitative blood xcpt reagent strip Ariadne Marie MD Work Phone: Start: 05-31-2024 Ecg routine ecg w/le ast 12 lds trcg only w/o i&r Pravin Poole MD Work Phone: Start: 05-31-2024 Electrophysiology study Kyung Hernandez CNP Work Phone: Start: 05-31-2024 Glucose quantitative blood xcpt reagent strip Ariadne Marie MD Work Phone: Start: 05-31-2024 Glucose quantitative blood xcpt reagent strip Otseth Marie MD Work Phone: Start: 05-31-2024 Ecg routine ecg w/le ast 12 lds trcg only w/o i&r Surjit Shaub DO Work Phone: Start: 05-31-2024 Basic metabolic pane l calcium total Louise Duddella MD Work Phone: Start: 05-30-2024 Assay of thyroid sti mulating hormone tsh Surjit Calero DO Work Phone: Start: 05-30-2024 Glucose quantitative blood xcpt reagent strip Ariadne Marie MD Work Phone: Start: 05-30-2024 Glucose quantitative blood xcpt reagent strip Louise Garza MD Work Phone: Start: 05-30-2024 Glucose quantitative blood xcpt reagent strip Louise Garza MD Work Phone: Start: 05-30-2024 Glucose quantitative blood xcpt reagent strip Louise Garza MD Work Phone: Start: 05-30-2024 Thyrotropin [Units/v olume] in Serum or Plasma Kyung Hogan MACHINE TESTER - CARDIOVASCULAR DISEASE SPECIALIST Work Phone: Start: 05-30-2024 Assay of troponin quantitative Lakeisha Davis Carter PA-C Work Phone: Start: 05-29-2024 End: 05-29-2024 Assay of troponin quantitative Lakeisha Davis Carter PA-C Work Phone: Start: 05-29-2024 Radiologic exam ches t single view Lakeisha Davis Carter PA-C Work Phone: Start: 05-29-2024 SARS-COV-2, FLU A/B, AND RSV COMBO Lakeisha Davis Carter PA-C Work Phone: Start: 05-29-2024 Basic metabolic pane l calcium total Lakeisha Davis Carter PA-C Work Phone: Start: 05-29-2024 Ecg routine ecg w/le ast 12 lds trcg only w/o i&r Lakeisha Davis Carter PA-C Work Phone: Start: 04-25-2024 Dup-scan artl ld abdl/pel/scrot&/rpr orgn com Le Dobson MACHINE TESTER - CARDIOVASCULAR DISEASE SPECIALIST Work Phone: Start: 04-18-2024 [facility]-mode compl spec&colr d Jose Joel MD Work Phone: Start: 03-14-2024 Follow-up visit [facility]EB COHN Start: 02-02-2024 Glucose quantitative blood xcpt reagent strip Terence Gonzalez MD Work Phone: Start: 02-02-2024 Glucose quantitative blood xcpt reagent strip Terence Gonzalez MD Work Phone: Start: 02-02-2024 Comprehensive metabolic panel Shemar Regalado DO Work Phone: Start: 02-01-2024 Glucose quantitative blood xcpt reagent strip Terence Gonzalez MD Work Phone: Start: 02-01-2024 Glucose quantitative blood xcpt reagent strip Terence Gonzalez MD Work Phone: Start: 02-01-2024 Glucose quantitative blood xcpt reagent strip Terence Gonzalez MD Work Phone: Start: 02-01-2024 Glucose quantitative blood xcpt reagent strip Terence Gonzalez MD Work Phone: Start: 02-01-2024 Comprehensive metabolic panel Shemar Regalado DO Work Phone: Start: 02-01-2024 Manual Differential panel - Blood Shemar Regalado DO Work Phone: Start: 01-31-2024 Glucose quantitative blood xcpt reagent strip Terence Gonzalez MD Work Phone: Start: 01-31-2024 Glucose quantitative blood xcpt reagent strip Terence Gonzalez MD Work Phone: Start: 01-31-2024 Glucose quantitative blood xcpt reagent strip Terence Gonzalez MD Work Phone: Start: 01-31-2024 Glucose quantitative blood xcpt reagent strip Terence Gonzalez MD Work Phone: Start: 01-31-2024 Comprehensive metabolic panel Shemar Regalado DO Work Phone: Start: 01-31-2024 Manual Differential panel - Blood Shemar Regalado DO Work Phone: Start: 01-30-2024 Glucose quantitative blood xcpt reagent strip Shemar Regalado DO Work Phone: Start: 01-30-2024 Radiologic exam ches t single view Shemar Regalado DO Work Phone: Start: 01-30-2024 Glucose quantitative blood xcpt reagent strip Shemar Regalado DO Work Phone: Start: 01-30-2024 Glucose quantitative blood xcpt reagent strip Shemar Regalado DO Work Phone: Start: 01-30-2024 Glucose quantitative blood xcpt reagent strip Shemar Regalado DO Work Phone: Start: 01-30-2024 Dup-scan xtr veins c omplete bilateral study Sukhi Maurer MD Work Phone: Start: 01-30-2024 Urnls dip stick/tabl et reagent auto microscopy Matthew Morillo MD Work Phone: Start: 01-30-2024 Radiologic exam ches t single view Matthew Morillo MD Work Phone: Start: 01-30-2024 Comprehensive metabolic panel Sukhi Maurer MD Work Phone: Start: 01-29-2024 Glucose quantitative blood xcpt reagent strip Shemar Regalado DO Work Phone: Start: 01-29-2024 Glucose quantitative blood xcpt reagent strip Shemar Regalado DO Work Phone: Start: 01-29-2024 End: 01-29-2024 Chloride urine Le Dobson MACHINE TESTER - CARDIOVASCULAR DISEASE SPECIALIST Work Phone: Start: 01-29-2024 Glucose quantitative blood xcpt reagent strip Shemar Regalado DO Work Phone: Start: 01-29-2024 Comprehensive metabolic panel Sukhi Maurer MD Work Phone: Start: 01-29-2024 Drug screen quantita tive vancomycin Sukhi Maurer MD Work Phone: Start: 01-29-2024 Manual Differential panel - Blood Sukhi Maurer MD Work Phone: Start: 01-28-2024 End: 01-28-2024 Assay of troponin quantitative Sukhi Maurer MD Work Phone: Start: 01-28-2024 Ct head/brain w/o co ntrast material Mindi Angulo MD Work Phone: Start: 01-28-2024 Ecg routine ecg w/le ast 12 lds trcg only w/o i&r Mindi Angulo MD Work Phone: Start: 01-28-2024 Culture bacterial qu anttative colony count urine Mindi Angulo MD Work Phone: Start: 01-28-2024 Basic metabolic pane l calcium total Mindi Angulo MD Work Phone: Start: 01-28-2024 C-reactive protein Maninder Maurer MD Work Phone: Start: 01-06-2024 Hemoglobin A1c/Hemoglobin.total in Blood [facility] DO Work Phone: Start: 12-07-2023 Urnls dip stick/tabl et rgnt auto w/o microscopy [facility] DO Work Phone: Start: 06-27-2023 Culture bacterial qu [facility]tative colony [facility] Work Phone: Start: 06-27-2023 Urnls dip stick/tabl et rgnt auto w/o microscopy [facility] DO Work Phone: Start: 06-27-2023 Hemoglobin A1c/Hemoglobin.total in Blood [facility] DO Work Phone: Start: 03-07-2023 Dup-scan xtr veins unilateral/limited study [facility] DO Work Phone: Start: 03-07-2023 Urnls dip stick/tabl et rgnt auto w/o microscopy [place] Maryan Cohn DO Work Phone: Start: 12-08-2022 Echo tthrc r-t 2d w/ wom-mode compl spec&colr d Charley Linda Parker [facility] Work Phone: Start: 11-19-2022 Glucose quantitative blood xcpt reagent strip Pola Henderson MD Work Phone: Start: 11-19-2022 Glucose quantitative blood xcpt reagent strip Pola Henderson MD Work Phone: Start: 11-19-2022 Comprehensive metabolic panel Katherine Manda Kinga [facility] Work Phone: Start: 11-19-2022 Manual differential performed [Presence] in Blood Katherineher Manda Donato [facility] Work Phone: Start: 11-18-2022 Glucose quantitative blood xcpt reagent strip Pola Henderson MD Work Phone: Start: 11-18-2022 Glucose quantitative blood xcpt reagent strip Pola Henderson MD Work Phone: Start: 11-18-2022 Glucose quantitative blood xcpt reagent strip Pola Henderson MD Work Phone: Start: 11-18-2022 Basic metabolic pane l calcium total Jessica Katy Paulino [facility] Work Phone: Start: 11-18-2022 SARS-COV-2, FLU A/B, AND RSV COMBO Ajit Jg Gray DO Work Phone: Start: 11-18-2022 Bacteria identified in Blood by Culture Ajit G Estelaheim DO Work Phone: Start: 11-18-2022 Comprehensive metabolic panel Ajit G Estelaheim DO Work Phone: Start: 11-17-2022 Radiologic exam ches t single view Ajit G Estelaheim DO Work Phone: Start: 11-17-2022 Culture bacterial qu anttative colony count urine Ajit Gray DO Work Phone: Start: 11-17-2022 Urinalysis complete panel - Urine Krunal Alford DO Work Phone: Start: 11-17-2022 Glucose quantitative blood xcpt reagent strip Ajit Gray DO Work Phone: Start: 08-25-2022 Thyrotropin [Units/v olume] in Serum or Plasma Charleyreyna Parker MACHINE TESTER - [facility] Work Phone: Start: 12-22-2021 Gluc bld gluc mntr d ev cleared fda spec home use Terence Gonzalez MD Work Phone: Start: 12-22-2021 Gluc bld gluc mntr d ev cleared fda spec home use Terence Gonzalez MD Work Phone: Start: 12-22-2021 Gluc bld gluc mntr d ev cleared fda spec home use Terence Gonzalez MD Work Phone: Start: 12-22-2021 Blood count complete auto&auto difrntl wbc Terence Gonzalez MD Work Phone: Start: 12-21-2021 Gluc bld gluc mntr d ev cleared fda spec home use Terence Gonzalez MD Work Phone: Start: 12-21-2021 Gluc bld gluc mntr d ev cleared fda spec home use Terence Gonzalez MD Work Phone: Start: 12-21-2021 HOME O2 EVAL (DESATU RATION SCREEN) Sue Tripathi MACHINE TESTER [facility] Work Phone: Start: 12-21-2021 Gluc bld gluc mntr d ev cleared fda spec home use Terence Gonzalez MD Work Phone: Start: 12-21-2021 Gluc bld gluc mntr d ev cleared fda spec home use Terence Gonzalez MD Work Phone: Start: 12-21-2021 Blood count complete auto&auto difrntl wbc Terence Gonzalez MD Work Phone: Start: 12-20-2021 Gluc bld gluc mntr d ev cleared fda spec home use Terence Gonzalez MD Work Phone: Start: 12-20-2021 Gluc bld gluc mntr d ev cleared fda spec home use Terence Gonzalez MD Work Phone: Start: 12-20-2021 Drug screen quantita tive vancomycin uS Guy MD Work Phone: Start: 12-20-2021 Gluc bld gluc mntr d ev cleared fda spec home use Terence Gonzalez MD Work Phone: Start: 12-20-2021 Gluc bld gluc mntr d ev cleared fda spec home use Linda Tejeda MD Work Phone: Start: 12-20-2021 Blood count complete auto&auto difrntl wbc Terence Gonzalez MD Work Phone: Start: 12-19-2021 Gluc bld gluc mntr d ev cleared fda spec home use Terence Gonzalez MD Work Phone: Start: 12-19-2021 Gluc bld gluc mntr d ev cleared fda spec home use Terence Gonzalez MD Work Phone: Start: 12-19-2021 Drug screen quantita tive vancomycin Terence Gonzalez MD Work Phone: Start: 12-19-2021 Gluc bld gluc mntr d ev cleared fda spec home use Terence Gonzalez MD Work Phone: Start: 12-19-2021 Gluc bld gluc mntr d ev cleared fda spec home use Terence Gonzalez MD Work Phone: Start: 12-19-2021 Blood count complete auto&auto difrntl wbc Terence Gonzalez MD Work Phone: Start: 12-18-2021 Gluc bld gluc mntr d ev cleared fda spec home use Terence Gonzalez MD Work Phone: Start: 12-18-2021 Gluc bld gluc mntr d ev cleared fda spec home use Terence Gonzalez MD Work Phone: Start: 12-18-2021 Gluc bld gluc mntr d ev cleared fda spec home use Terence Gonzalez MD Work Phone: Start: 12-18-2021 Gluc bld gluc mntr d ev cleared fda spec home use Terence Gonzalez MD Work Phone: Start: 12-18-2021 Comprehensive metabolic panel Ariel Solitario MD Work Phone: Start: 12-17-2021 Gluc bld gluc mntr d ev cleared fda spec home use Terence Gonzalez MD Work Phone: Start: 12-17-2021 Gluc bld gluc mntr d ev cleared fda spec home use Terence Gonzalez MD Work Phone: Start: 12-17-2021 Radiologic exam chest 2 views Ariel Solitario MD Work Phone: Start: 12-17-2021 Drug screen quantita tive vancomycin Su Guy MD Work Phone: Start: 12-17-2021 Gluc bld gluc mntr d ev cleared fda spec home use Terence Gonzalez MD Work Phone: Start: 12-17-2021 Gluc bld gluc mntr d ev cleared fda spec home use Linda Tejeda MD Work Phone: Start: 12-17-2021 Assay of magnesium Sharron Gonzalez MD Work Phone: Start: 12-16-2021 Gluc bld gluc mntr d ev cleared fda spec home use Terence Gonzalez MD Work Phone: Start: 12-16-2021 Gluc bld gluc mntr d ev cleared fda spec home use Terence Gonzalez MD Work Phone: Start: 12-16-2021 Gluc bld gluc mntr d ev cleared fda spec home use Terence Gonzalez MD Work Phone: Start: 12-16-2021 Gluc bld gluc mntr d ev cleared fda spec home use Terence Gonzalez MD Work Phone: Start: 12-16-2021 Assay of magnesium Zenaidam ajay Gonzalez MD Work Phone: Start: 12-15-2021 Gluc bld gluc mntr d ev cleared fda spec home use Terence Gonzalez MD Work Phone: Start: 12-15-2021 Gluc bld gluc mntr d ev cleared fda spec home use Terence Gonzalez MD Work Phone: Start: 12-15-2021 Echo tthrc r-t 2d w/ wom-mode compl spec&colr d Terence Gonzalez MD Work Phone: Start: 12-15-2021 Gluc bld gluc mntr d ev cleared fda spec home use Terence Gonzalez MD Work Phone: Start: 12-15-2021 Gluc bld gluc mntr d ev cleared fda spec home use Terence Gonzalez MD Work Phone: Start: 12-15-2021 Culture bacterial bl ood aerobic w/id isolates Giancarlo Alcala MD Work Phone: Start: 12-15-2021 CULTURE, BLOOD 1 Giancarlo Alcala MD Work Phone: Start: 12-15-2021 Assay of magnesium Sharron Gonzalez MD Work Phone: Start: 12-14-2021 ADD ON LAB TEST Terence Gonzalez MD Work Phone: Start: 12-14-2021 Radiologic exam ches t single view Terence Gonzalez MD Work Phone: Start: 12-14-2021 End: 12-14-2021 Comprehensive metabolic panel Terence graves MD Work Phone: Start: 12-14-2021 Gluc bld gluc mntr d ev cleared fda spec home use Terence Gonzalez MD Work Phone: Start: 12-14-2021 Dup-scan xtr veins c omplete bilateral study Terence Gonzalez MD Work Phone: Start: 12-14-2021 Gluc bld gluc mntr d ev cleared fda spec home use Terence Gonzalez MD Work Phone: Start: 12-14-2021 Blood count complete auto&auto difrntl wbc Terence Gonzalez MD Work Phone: Start: 12-14-2021 RBC morphology findi ng Nom (Bld) Terence Gonzalez MD Work Phone: Start: 12-13-2021 LACTATE, SEPSIS Terence Gonzalez MD Work Phone: Start: 12-13-2021 LACTATE, SEPSIS Terence Gonzalez MD Work Phone: Start: 12-13-2021 Gluc bld gluc mntr d ev cleared fda spec home use Terence Gonzalez MD Work Phone: Start: 12-13-2021 Gluc bld gluc mntr d ev cleared fda spec home use Terence Gonzalez MD Work Phone: Start: 12-13-2021 Assay of lactate Linda Tejeda MD Work Phone: Start: 12-13-2021 Culture bacterial bl ood aerobic w/id isolates J Azra Tejeda MD Work Phone: Start: 12-13-2021 CULTURE, BLOOD 1 Linda Tejeda MD Work Phone: Start: 12-13-2021 ADD ON LAB TEST Linda Tejeda MD Work Phone: Start: 12-13-2021 Ct head/brain w/o co ntrast material Linda Tejeda MD Work Phone: Start: 12-13-2021 Basic metabolic pane l calcium total J Azra Tejeda MD Work Phone: Start: 12-13-2021 Culture bacterial qu anttative colony count urine Linda Tejeda MD Work Phone: Start: 12-13-2021 Urnls dip stick/tabl et rgnt auto w/o microscopy Linda Tejeda MD Work Phone: Start: 09-03-2021 Adult depression scr eening assessment Komal Cohn DO Work Phone: Start: 09-17-2020 EXTERNAL IMAGING Senior Design Engineer al Provider Start: 08-29-2020 Dup-scan xtr veins unilateral/limited study Komal Cohn Work Phone: Start: 08-28-2020 Adult depression scr eening assessment Komal Cohn Start: 08-25-2019 Ct head/brain w/o co ntrast material Melanie Padilla PA-C Work Phone: Start: 08-25-2019 Radiologic exam ches t single view Melanie Padilla PA-C Work Phone: Start: 08-25-2019 Radiologic examinati on knee 3 views Melanie Padilla PA-C Work Phone: Plan of Treatment Date Care Activity Detail Author Start: 07-04-2025 Complete blood count Hemoglobin/Hematocrit [facility] Start: 07-04-2025 Creatinine measurement [facility] Start: 07-04-2025 Diabetes: Estimated Glomerular Filtration Rate for Kidney Health Diabetes: Estimated Glomerular Filtration Rate for Kidney Health [facility] Start: 07-04-2025 Potassium measurement [facility] Start: 07-04-2025 [facility] Start: 06-11-2025 Annual PCP Team Chronic Disease Visit Annual PCP Team Chronic Disease Visit [facility] Start: 06-01-2025 Complete blood count Hemoglobin/Hematocrit [facility] Start: 06-01-2025 Creatinine measurement [facility] Start: 06-01-2025 Potassium measurement Potassium Level [facility] Start: 05-30-2025 Thyroid stimulating hormone measurement TSH Level [facility] Start: 04-27-2025 Annual PCP Team Chronic Disease Visit Annual PCP Team Chronic Disease Visit [facility] Start: 04-18-2025 Echocardiography Echocardiogram [facility] Start: 04-18-2025 [facility] Start: 04-08-2025 Influenza vaccination Influenza Vaccine (Season Ended) [facility] Start: 03-27-2025 End: 03-27-2025 ambulatory [facility] Start: 03-27-2025 End: 03-27-2025 Patient encounter procedure [facility] Start: 03-26-2025 Creatinine measurement [facility] Start: 03-26-2025 Potassium measurement Potassium Level [facility] Start: 03-20-2025 Creatinine measurement Creatinine Level [facility] Start: 03-20-2025 Potassium measurement Potassium Level [facility] Start: 03-16-2025 Annual PCP Team Chronic Disease Visit Annual PCP Team Chronic Disease Visit [facility] Start: 03-16-2025 BP Controlled (<130/80) BP Controlled (<130/80) [facility] Start: 03-06-2025 End: 03-06-2025 Professional / ancillary services management 03/06/2025 3:00 PM EDT Ancillary Procedure [facility] [place] [address] [place] [phone] [facility] [place] Start: 02-26-2025 Annual PCP Team Chronic Disease Visit Annual PCP Team Chronic Disease Visit [facility] Start: 02-01-2025 Complete blood count Hemoglobin/Hematocrit [facility] Start: 02-01-2025 Creatinine measurement [facility] Start: 02-01-2025 Potassium measurement Potassium Level [facility] Start: 01-28-2025 Diabetes: Urine Albumin-Creatinine Ratio for Kidney Health Diabetes: Urine Albumin-Creatinine Ratio for Kidney Health [facility] Start: 01-28-2025 [facility] Start: 01-05-2025 Annual PCP Team Chronic Disease Visit Annual PCP Team Chronic Disease Visit [facility] Start: 01-05-2025 Diabetic foot examination Diabetic Foot Exam [facility] Start: 12-13-2024 Creatinine measurement Serum Creatinine [facility] Start: 12-06-2024 Annual PCP Team Chronic Disease Visit Annual PCP Team Chronic Disease Visit [facility] Start: 12-06-2024 BP Controlled (<130/80) BP Controlled (<130/80) [facility] Start: 11-29-2024 End: 11-29-2024 Professional / ancillary services management 11/29/2024 1:00 PM EDT Ancillary Procedure [facility] [place] [address] [place] [phone] [facility] [place] Start: 11-16-2024 End: 11-16-2024 Patient encounter procedure 11/16/2024 3:00 PM EDT Office Visit [facility] [place] [address] [place] [phone] Pravin Poole MD [address] [place] [address] [facility] [place] Start: 08-31-2024 End: 08-31-2024 ambulatory [facility] [place] Start: 08-31-2024 End: 08-31-2024 Patient encounter procedure 08/31/2024 1:15 PM EST Office Visit [facility] [place] [address] [place] [phone] Pravin Poole MD [address] [place] [address] [facility] [place] Start: 08-30-2024 End: 08-30-2024 ambulatory [facility] [place] Start: 08-30-2024 End: 08-30-2024 Professional / ancillary services management 08/30/2024 9:00 AM EST Ancillary Procedure [facility] [place] [address] [place] [phone] [facility] [place] Start: 08-08-2024 Medicare Advantage Annual Wellness Visit Medicare Advantage Annual Wellness Visit [facility] Start: 07-29-2024 Hemoglobin A1c measurement HbA1C [facility] Start: 07-20-2024 End: 07-20-2024 Patient encounter procedure 07/20/2024 2:15 PM EST Office Visit [facility] [address] [place] [address] Komal Cohn DO [address] [place] [address] f/u 3 months [facility] Comment on above: f/u 3 months Start: 07-07-2024 Hemoglobin A1c measurement HbA1C [facility] Start: 06-27-2024 Annual PCP Team Chronic Disease Visit Annual PCP Team Chronic Disease Visit [facility] Start: 06-27-2024 BP Controlled (<130/80) BP Controlled (<130/80) [facility] Start: 06-20-2024 End: 06-20-2024 Professional / ancillary services management 06/20/2024 1:00 PM EST Ancillary Procedure [facility] [address] [place] [phone] [facility] Start: 06-11-2024 End: 06-11-2024 Patient encounter procedure 06/11/2024 1:00 PM EST Office Visit [facility] [address] [place], [place] [phone] Komal Cohn DO [address] [place], [place] [phone] hosp fu [facility] Comment on above: hosp fu Start: 06-01-2024 End: 06-01-2025 Basic metabolic 1998 panel - Serum or Plasma Basic metabolic panel Lab Routine BARRY (acute kidney injury) (HCC) Expected: 06/01/2024 (Approximate), Expires: 06/01/[address] [facility] Work Phone: Comment on above: Expected: 06/01/2024 (Approximate), Expi res: 06/01/2025 Start: 04-27-2024 End: 04-27-2024 Patient encounter procedure 04/27/2024 4:15 PM EDT Office Visit [facility] [address] [place], [place] [phone] Komal Cohn DO [address] [place] [phone] 3 mos ck up [facility] Comment on above: 3 mos ck up Start: 04-25-2024 End: 04-25-2024 Patient encounter procedure [facility] Start: 04-18-2024 End: 04-18-2024 Patient encounter procedure 04/18/2024 1:00 PM EDT Appointment [facility] Non-Invasive Cardiology [address] [place] [phone] Jose Joel MD [address] [place] [address] [facility] Start: 04-13-2024 End: 04-13-2024 Patient encounter procedure 04/13/2024 4:00 PM EDT Office Visit [facility] [address] [place] [address] Komal Cohn DO [address] [place] [address] 3 mos ck up [facility] Comment on above: 3 mos ck up Start: 04-08-2024 Covid-19 Vaccine ( season) Covid-19 Vaccine ( season) [facility] Start: 04-08-2024 Covid-19 Vaccine ( season) Covid-19 Vaccine () [facility] Start: 04-08-2024 Influenza vaccination [facility] Start: 04-08-2024 [facility] Start: 04-06-2024 End: 04-06-2024 Patient encounter procedure 04/06/2024 11:00 AM EDT Office Visit [facility] [address] [place] [address] Komal Cohn DO [address] [place] [phone] f/u 3 months [facility] Comment on above: f/u 3 months Start: 04-04-2024 End: 04-04-2024 Patient encounter procedure 04/04/2024 1:00 PM EDT Appointment [facility] Non-Invasive Cardiology [address] [place] [phone] [facility] Start: 03-26-2024 End: 03-21-2025 Basic metabolic 1998 panel - Serum or Plasma Basic metabolic panel Lab Routine Nonrheumatic aortic valve stenosis Acute renal failure superimposed on stage 4 chronic kidney disease, unspecified acute renal failure type (HCC) Expected: 03/26/2024 (Approximate), Expires: 03/21/2025 [facility] Work Phone: Comment on above: Expected: 03/26/2024 (Approximate), Expi res: 03/21/2025 Start: 03-19-2024 End: 03-14-2025 Basic metabolic 1998 panel - Serum or Plasma Basic metabolic panel Lab Routine Coronary artery disease involving coronary bypass graft of [place] heart without angina pectoris Nonrheumatic aortic valve stenosis Expected: 03/19/2024 (Approximate), Expires: 03/14/2025 [facility] Work Phone: Comment on above: Expected: 03/19/2024 (Approximate), Expi res: 03/14/2025 Start: 03-16-2024 End: 03-16-2024 Patient encounter procedure 03/16/2024 3:15 [place] [address] [place] [address] [facility] Comment on above: [facility] Start: 03-14-2024 ANNUAL PCP TEAM CHRONIC DISEASE VISIT ANNUAL PCP TEAM CHRONIC DISEASE VISIT [facility] Start: 03-14-2024 End: 03-14-2026 Heart Transthoracic Transthoracic echocardiogram (TTE) complete with contrast, bubble, strain, and 3D PRN CV Echocardiography Routine Coronary artery disease involving coronary bypass graft of [place] heart without angina pectoris Nonrheumatic aortic valve stenosis Expected: 03/14/2024 (Approximate), Expires: 03/14/2026 [facility] Comment on above: Expected: 03/14/2024 (Approximate), Expi res: 03/14/2026 Start: 03-07-2024 ANNUAL PCP TEAM CHRONIC DISEASE VISIT ANNUAL PCP TEAM CHRONIC DISEASE VISIT [facility] Start: 03-07-2024 End: 03-07-2024 Patient encounter procedure 03/07/2024 10:20 AM EDT Office Visit [facility] Cardiology [address] [place] [phone] Jose Joel MD [address] [place] [address] [facility] Start: 02-27-2024 End: 02-27-2024 Patient encounter procedure 02/27/2024 3:15 PM EDT Office Visit [facility] [address] [place] [address] Komal Cohn DO [address] [place] [id number] TCM [facility] Comment on above: TCM Start: 01-06-2024 End: 04-06-2024 Basic metabolic 2000 panel - Serum or Plasma BASIC METABOLIC PANEL Lab Routine CKD (chronic kidney disease) stage 4, GFR 15-29 ml/min ([facility]) Expected: 01/06/2024, Expires: 04/06/2024 [facility] Comment on above: Expected: 01/06/2024, Expires: Start: 01-06-2024 End: 01-06-2024 Patient encounter procedure 01/06/2024 1:00 PM EDT Office Visit [facility] [address] [place] [address] Komal Cohn, DO [address] [place] [phone] 4 week f/u [facility] Comment on above: 4 week f/u Start: 12-26-2023 Hemoglobin A1c measurement HbA1C [facility] Start: 12-26-2023 Hemoglobin A1c/Hemoglobin.total in Blood HbA1C [facility] Start: 12-14-2023 ANNUAL PCP TEAM CHRONIC DISEASE VISIT ANNUAL PCP TEAM CHRONIC DISEASE VISIT [facility] Start: 12-14-2023 End: 03-14-2024 Basic metabolic 2000 panel - Serum or Plasma BASIC METABOLIC PANEL Lab Routine Bilateral leg edema Expected: 12/14/2023, Expires: 03/14/2024 [facility] Comment on above: Expected: 12/14/2023, Expires: Start: 12-09-2023 Echocardiography Echocardiogram [facility] Start: 12-03-2023 Complete blood count Hemoglobin/Hematocrit [facility] Start: 12-03-2023 Creatinine measurement Serum Creatinine [facility] Start: 12-03-2023 HEMOGLOBIN/HEMATOCRIT HEMOGLOBIN/HEMATOCRIT [facility] Start: 12-03-2023 SERUM CREATININE SERUM CREATININE [facility] Start: 11-23-2023 ANNUAL PCP TEAM CHRONIC DISEASE VISIT ANNUAL PCP TEAM CHRONIC DISEASE VISIT [facility] Start: 11-23-2023 BP CONTROLLED (<130/80) BP CONTROLLED (<130/80) [facility] in Start: 11-20-2023 Creatinine measurement Creatinine Level [facility] Start: 11-20-2023 Potassium measurement Potassium Level [facility] Start: 08-25-2023 HEMOGLOBIN/HEMATOCRIT HEMOGLOBIN/HEMATOCRIT [facility] Start: 08-25-2023 Hepatitis B surface antibody level LDL CHOLESTEROL [facility] Start: 08-25-2023 SERUM CREATININE SERUM CREATININE [facility] Start: 08-25-2023 Thyroid stimulating hormone measurement TSH Level [facility] Start: 08-16-2023 ANNUAL PCP TEAM CHRONIC DISEASE VISIT ANNUAL PCP TEAM CHRONIC DISEASE VISIT [facility] Start: 08-08-2023 Advance Directive Discussion Advance Directive Discussion [facility] Start: 08-08-2023 Depression Assessment Depression Assessment [facility] Start: 08-08-2023 Medicare [facility] Annual Wellness Visit Medicare [facility] Annual Wellness Visit [facility] Start: 08-08-2023 [facility] Start: 06-29-2023 End: 09-28-2023 Bacteria identified in Urine by Culture URINE CULTURE Microbiology Routine Recurrent UTI (urinary tract infection) Expected: 06/29/2023, Expires: 09/28/2023 [facility] Work Phone: Comment on above: Expected: 06/29/2023, Expires: Start: 06-27-2023 End: 09-26-2023 Bacteria identified in Urine by Culture URINE CULTURE Microbiology Routine Recurrent UTI (urinary tract infection) Expected: 06/27/2023, Expires: 09/26/2023 [facility] Work Phone: Comment on above: Expected: 06/27/2023, Expires: Start: 05-24-2023 Hemoglobin A1c/Hemoglobin.total in Blood HBA1C [facility] Start: 05-03-2023 ANNUAL PCP TEAM CHRONIC DISEASE VISIT ANNUAL PCP TEAM CHRONIC DISEASE VISIT [facility] Start: 05-03-2023 BP CONTROLLED (<130/80) BP CONTROLLED (<130/80) [facility] Start: 04-08-2023 Covid-19 Vaccine () Covid-19 Vaccine () [facility] Start: 04-08-2023 Influenza vaccination [facility] Start: 03-30-2023 End: 03-30-2023 Patient encounter procedure [facility] Start: 03-22-2023 Glaucoma screening Diabetes: Retinopathy Screening [facility] Start: 01-18-2023 ANNUAL PCP TEAM CHRONIC DISEASE VISIT ANNUAL PCP TEAM CHRONIC DISEASE VISIT [facility] Start: 01-18-2023 BP CONTROLLED (<130/80) BP CONTROLLED (<130/80) [facility] Start: 12-28-2022 Lipid panel Lipid screen [place] Start: 12-28-2022 Lipid screen Lipid screen [facility] Work Phone: Start: 12-18-2022 Creatinine measurement Creatinine Level [facility] Start: 12-18-2022 Potassium measurement Potassium Level [facility] Start: 12-08-2022 End: 12-08-2022 Patient encounter procedure [facility] Affairs Manager Start: 11-30-2022 ANNUAL PCP TEAM CHRONIC DISEASE VISIT ANNUAL PCP TEAM CHRONIC DISEASE VISIT [facility] Start: 10-31-2022 Hemoglobin A1c/Hemoglobin.total in Blood HBA1C [facility] Start: 09-30-2022 End: 09-30-2024 US Heart Transthoracic Transthoracic echocardiogram (TTE) complete with contrast, bubble, strain, and 3D PRN CV Echocardiography Routine Nonrheumatic aortic valve stenosis Expected: 09/30/2022 (Approximate), Expires: 09/30/2024 [facility] Work Phone: Comment on above: Expected: 09/30/2022 (Approximate), Expi res: 09/30/2024 Start: 09-21-2022 Glaucoma screening Diabetes: Retinopathy Screening [facility] Start: 09-16-2022 Hepatitis B surface antibody level LDL CHOLESTEROL [facility] Start: 09-03-2022 Adult depression screening assessment DEPRESSION SCREENING [facility] Start: 09-03-2022 ANNUAL PCP TEAM CHRONIC DISEASE VISIT ANNUAL PCP TEAM CHRONIC DISEASE VISIT [facility] Start: 08-16-2022 End: 10-16-2022 CBC W Auto Differential panel - Blood CBC + DIFF Lab Routine Hyperlipidemia, mixed Expected: 08/16/2022, Expires: 10/16/2022 [facility] Work Phone: Comment on above: Expected: 08/16/2022, Expires: 3 Start: 08-16-2022 End: 10-16-2022 Comprehensive metabolic 2000 panel - Serum or Plasma COMP METABOLIC PANEL Lab Routine Hyperlipidemia, mixed Expected: 08/16/2022, Expires: 10/16/2022 [facility] Work Phone: Comment on above: Expected: 08/16/2022, Expires: 3 Start: 08-16-2022 End: 10-16-2022 Lipid 1996 panel - Serum or Plasma LIPID PANEL BASIC Lab Routine Hyperlipidemia, mixed Expected: 08/16/2022, Expires: 10/16/2022 [facility] Work Phone: Comment on above: Expected: 08/16/2022, Expires: 3 Start: 08-16-2022 End: 10-16-2022 Thyrotropin [Units/volume] in Serum or Plasma TSH BLD Lab Routine Hypothyroidism, acquired Expected: 08/16/2022, Expires: 10/16/2022 [facility] Work Phone: Comment on above: Expected: 08/16/2022, Expires: 3 Start: 08-16-2022 End: 10-16-2022 Urinalysis complete panel - Urine URINALYSIS, WITH MICROSCOPIC Lab Routine Hyperlipidemia, mixed Expected: 08/16/2022, Expires: 10/16/2022 [facility] Work Phone: Comment on above: Expected: 08/16/2022, Expires: 3 Start: 08-08-2022 ADVANCE DIRECTIVE DISCUSSION ADVANCE DIRECTIVE DISCUSSION [facility] Start: 08-08-2022 DEPRESSION ASSESSMENT DEPRESSION ASSESSMENT [facility] Start: 08-03-2022 End: 10-03-2022 ALBUMIN/CREAT RATIO RND UR ALBUMIN/CREAT RATIO RND UR Lab Routine Diabetes ([facility]) Expected: 08/03/2022, Expires: 10/03/2022 [facility] Work Phone: Comment on above: Expected: 08/03/2022, Expires: 3 Start: 08-03-2022 End: 10-03-2022 CBC panel - Blood by Automated count CBC Lab Routine Diabetes ([facility]) Expected: 08/03/2022, Expires: 10/03/2022 [facility] Work Phone: Comment on above: Expected: 08/03/2022, Expires: 3 Start: 08-03-2022 End: 10-03-2022 SCHEDULE LAB TESTING SCHEDULE LAB TESTING Lab Routine Expected: 08/03/2022, Expires: 10/03/2022 [facility] Work Phone: Comment on above: Expected: 08/03/2022, Expires: 3 Start: 08-03-2022 End: 10-03-2022 Thyrotropin [Units/volume] in Serum or Plasma TSH BLD Lab Routine Hypothyroidism, acquired Expected: 08/03/2022, Expires: 10/03/2022 [facility] Work Phone: Comment on above: Expected: 08/03/2022, Expires: 3 Start: 05-28-2022 ANNUAL PCP TEAM CHRONIC DISEASE VISIT ANNUAL PCP TEAM CHRONIC DISEASE VISIT [facility] Start: 05-11-2022 End: 07-11-2022 Basic metabolic 2000 panel - Serum or Plasma BASIC METABOLIC PNL Lab Routine CKD (chronic kidney disease) stage 1, GFR 90 ml/min or greater Expected: 05/11/2022, Expires: 07/11/2022 [facility] Work Phone: Comment on above: Expected: 05/11/2022, Expires: 2 Start: 04-26-2022 End: 06-26-2022 Basic metabolic 2000 panel - Serum or Plasma BASIC METABOLIC PNL Lab Routine Hypokalemia Expected: 04/26/2022, Expires: 06/26/2022 [facility] Work Phone: Comment on above: Expected: 04/26/2022, Expires: 2 Start: 04-08-2022 Influenza vaccination [facility] Start: 03-16-2022 Hemoglobin A1c/Hemoglobin.total in Blood HBA1C [facility] Start: 02-25-2022 ANNUAL PCP TEAM CHRONIC DISEASE VISIT ANNUAL PCP TEAM CHRONIC DISEASE VISIT [facility] Start: 01-01-2022 End: 03-03-2022 CBC W Auto Differential panel - Blood CBC + DIFF Lab Routine Anemia, unspecified type Expected: 01/01/2022, Expires: 03/03/2022 [facility] Work Phone: Comment on above: Expected: 01/01/2022, Expires: 2 Start: 01-01-2022 End: 03-03-2022 Cobalamin (Vitamin B12) [Mass/volume] in Serum or Plasma VITAMIN B12 BLOOD Lab Routine Anemia, unspecified type Expected: 01/01/2022, Expires: 03/03/2022 [facility] Work Phone: Comment on above: Expected: 01/01/2022, Expires: 2 Start: 01-01-2022 End: 03-03-2022 Ferritin [Mass/volume] in Serum or Plasma FERRITIN BLD Lab Routine Anemia, unspecified type Expected: 01/01/2022, Expires: 03/03/2022 [facility] Work Phone: Comment on above: Expected: 01/01/2022, Expires: 2 Start: 01-01-2022 End: 03-03-2022 Folate [Mass/volume] in Serum or Plasma FOLATE SERUM Lab Routine Anemia, unspecified type Expected: 01/01/2022, Expires: 03/03/2022 [facility] Work Phone: Comment on above: Expected: 01/01/2022, Expires: 2 Start: 01-01-2022 End: 03-03-2022 Iron and Iron binding capacity panel - Serum or Plasma IRON + TIBC Lab Routine Anemia, unspecified type Expected: 01/01/2022, Expires: 03/03/2022 [facility] Work Phone: Comment on above: Expected: 01/01/2022, Expires: 2 Start: 01-01-2022 End: 03-03-2022 RETIC COUNT RETIC COUNT Lab Routine Anemia, unspecified type Expected: 01/01/2022, Expires: 03/03/2022 [facility] Work Phone: Comment on above: Expected: 01/01/2022, Expires: 2 Start: 12-29-2021 End: 12-22-2022 CBC panel - Blood by Automated count CBC Lab Routine Acute cystitis without hematuria Expected: 12/29/2021, Expires: 12/22/2022 [facility] Work Phone: Comment on above: Expected: 12/29/2021, Expires: 3 Start: 12-29-2021 End: 12-22-2022 Comprehensive metabolic 2000 panel - Serum or Plasma Comprehensive Metabolic Panel Lab Routine Altered mental status, unspecified altered mental status type Expected: 12/29/2021, Expires: 12/22/2022 [facility] Work Phone: Comment on above: Expected: 12/29/2021, Expires: 3 Start: 11-26-2021 ANNUAL PCP TEAM CHRONIC DISEASE VISIT ANNUAL PCP TEAM CHRONIC DISEASE VISIT [facility] Start: 09-03-2021 End: 09-03-2022 CBC W Auto Differential panel - Blood CBC + DIFF Lab Routine Hyperlipidemia, mixed Expected: 09/03/2021, Expires: 09/03/2022 [facility] Work Phone: Comment on above: Expected: 09/03/2021, Expires: 3 Start: 09-03-2021 End: 09-03-2022 Comprehensive metabolic 2000 panel - Serum or Plasma COMP METABOLIC PANEL Lab Routine Hyperlipidemia, mixed Expected: 09/03/2021, Expires: 09/03/2022 [facility] Work Phone: Comment on above: Expected: 09/03/2021, Expires: 3 Start: 09-03-2021 End: 09-03-2022 Hemoglobin A1c/Hemoglobin.total in Blood HGB A1C Lab Routine Type 2 diabetes mellitus without complication, without long-term current use of insulin (HCC) Expected: 09/03/2021, Expires: 09/03/2022 [facility] Work Phone: Comment on above: Expected: 09/03/2021, Expires: 3 Start: 09-03-2021 End: 09-03-2022 LIPID PANEL BASIC LIPID PANEL BASIC Lab Routine Hyperlipidemia, mixed Expected: 09/03/2021, Expires: 09/03/2022 [facility] Work Phone: Comment on above: Expected: 09/03/2021, Expires: 3 Start: 09-03-2021 End: 09-03-2022 Thyrotropin [Units/volume] in Serum or Plasma TSH BLD Lab Routine Hypothyroidism, acquired Expected: 09/03/2021, Expires: 09/03/2022 [facility] Work Phone: Comment on above: Expected: 09/03/2021, Expires: 3 Start: 08-29-2021 Hepatitis B surface antibody level LDL CHOLESTEROL [facility] Start: 08-28-2021 Adult depression screening assessment DEPRESSION SCREENING [facility] Start: 08-28-2021 ANNUAL PCP TEAM CHRONIC DISEASE VISIT ANNUAL PCP TEAM CHRONIC DISEASE VISIT [facility] Start: 08-08-2021 ADVANCE DIRECTIVE DISCUSSION ADVANCE DIRECTIVE DISCUSSION [facility] Start: 08-08-2021 DEPRESSION ASSESSMENT DEPRESSION ASSESSMENT [facility] Start: 06-10-2021 COVID-19 Vaccine (2 - Booster for Moderna series) COVID-19 Vaccine (2 - Booster for Moderna series) [facility] Start: 06-10-2021 COVID-19 VACCINE (2 - Moderna series) COVID-19 VACCINE (2 - Moderna series) [facility] Start: 05-28-2021 Hemoglobin A1c/Hemoglobin.total in Blood HBA1C [facility] Start: 05-13-2021 COVID-19 VACCINE (2 - Moderna 3-dose series) COVID-19 VACCINE (2 - Moderna 3-dose series) [facility] Start: 05-13-2021 COVID-19 VACCINE (2 - Moderna series) COVID-19 VACCINE (2 - Moderna series) [facility] Start: 04-08-2021 Influenza vaccination [facility] Start: 2020 RSV Immunization for Adults (1 - 1-dose 75+ series) RSV Immunization for Adults (1 - 1-dose 75+ series) [facility] Start: 2020 RSV Vaccine (1 - 1-dose 75+ series) RSV Vaccine (1 - 1-dose 75+ series) [facility] Start: 2020 [facility] Start: 04-08-2020 Influenza vaccination Flu vaccine (#1) [place], [place] Start: 04-08-2019 Influenza vaccination Flu vaccine (#1) [employer] Work Phone: Start: 03-15-2019 Breast cancer screen Breast cancer screen [facility] Work Phone: Start: 01-28-2019 Annual Wellness Visit (AWV) Annual Wellness Visit (AWV) [facility] Work Phone: Start: 12-30-2018 Creatinine measurement Creatinine monitoring [facility] [place] Start: 12-30-2018 Creatinine monitoring Creatinine monitoring [facility] Work Phone: Start: 12-30-2018 Potassium monitoring Potassium monitoring [facility] Work Phone: Start: 02-25-2018 Pneumococcal 65+ years Vaccine (2 - PPSV23 or PCV20) Pneumococcal 65+ years Vaccine (2 - PPSV23 or PCV20) [facility] Start: 02-25-2018 Pneumococcal 65+ years Vaccine (2 of 2 - PPSV23) Pneumococcal 65+ years Vaccine (2 of 2 - PPSV23) [facility] Work Phone: Start: 02-25-2018 Pneumococcal Vaccine: 65+ Years (2 - PPSV23 if available, else PCV20) Pneumococcal Vaccine: 65+ Years (2 - PPSV23 if available, else PCV20) [facility] Start: 02-25-2018 PNEUMOCOCCAL: 65+ (2 - PPSV23 if available, else PCV20) PNEUMOCOCCAL: 65+ (2 - PPSV23 if available, else PCV20) [facility] Start: 02-25-2018 PNEUMOCOCCAL: 65+ (2 - PPSV23 or PCV20) PNEUMOCOCCAL: 65+ (2 - PPSV23 or PCV20) [facility] Start: 09-09-2017 Screening for osteoporosis [facility] Start: 04-22-2017 Pneumococcal Vaccine: 50+ (2 of 2 - PPSV23) Pneumococcal Vaccine: 50+ (2 of 2 - PPSV23) [facility] Start: 04-22-2017 Pneumococcal Vaccine: 50+ Years (2 of 2 - PPSV23) Pneumococcal Vaccine: 50+ Years (2 of 2 - PPSV23) [facility] Start: 04-22-2017 Pneumococcal Vaccine: 65+ (2 - PPSV23 or PCV20) Pneumococcal Vaccine: 65+ (2 - PPSV23 or PCV20) [facility] Start: 04-22-2017 Pneumococcal Vaccine: 65+ (2 of 2 - PPSV23 or PCV20) Pneumococcal Vaccine: 65+ (2 of 2 - PPSV23 or PCV20) [facility] Start: 04-22-2017 Pneumococcal Vaccine: 65+ Years (2 - PPSV23 if available, else PCV20) Pneumococcal Vaccine: 65+ Years (2 - PPSV23 if available, else PCV20) [facility] Start: 04-22-2017 Pneumococcal Vaccine: 65+ Years (2 - PPSV23 or PCV20) Pneumococcal Vaccine: 65+ Years (2 - PPSV23 or PCV20) [facility] Start: 04-22-2017 Pneumococcal Vaccine: 65+ Years (2 of 2 - PPSV23 or PCV20) Pneumococcal Vaccine: 65+ Years (2 of 2 - PPSV23 or PCV20) [facility] Start: 04-22-2017 PNEUMOCOCCAL: 65+ (2 - PPSV23 if available, else PCV20) PNEUMOCOCCAL: 65+ (2 - PPSV23 if available, else PCV20) [facility] Start: 04-22-2017 PNEUMOCOCCAL: 65+ (2 - PPSV23 or PCV20) PNEUMOCOCCAL: 65+ (2 - PPSV23 or PCV20) [facility] Start: 04-22-2017 [facility] Start: 2010 ADVANCE DIRECTIVE DISCUSSION ADVANCE DIRECTIVE DISCUSSION [facility] Start: 2010 BONE DENSITY BONE DENSITY [facility] Start: 2010 Bone Density Screening Bone Density Screening [facility] Start: 2010 PNEUMOVAX AGE 65 AND OVER WITH 5YR LOOKBACK (#1) PNEUMOVAX AGE 65 AND OVER WITH 5YR LOOKBACK (#1) [facility] Start: 2010 Screening for osteoporosis Bone Density Screening [facility] Start: 2005 Hepatitis B Vaccine (1 of 3 - Risk 3-dose series) Hepatitis B Vaccine (1 of 3 - Risk 3-dose series) [facility] Start: 2005 Hepatitis B Vaccines (1 of 3 - Risk 3-dose series) Hepatitis B Vaccines (1 of 3 - Risk 3-dose series) [facility] Start: 2005 RSV Immunization aged 60 or older (1 - 1-dose 60+ series) RSV Immunization aged 60 or older (1 - 1-dose 60+ series) [facility] Start: 2005 RSV Vaccine (1 - 1-dose 60+ series) RSV Vaccine (1 - 1-dose 60+ series) [facility] Start: 2005 [facility] Start: 1995 Colon cancer screen colonoscopy Colon cancer screen colonoscopy [facility] Work Phone: Start: 1995 Screening for malignant neoplasm of colon [facility] Start: 1995 Shingles Vaccine (1 of 2) Shingles Vaccine (1 of 2) [facility] Start: 1995 SHINGRIX VACCINE (1 of 2) SHINGRIX VACCINE (1 of 2) [facility] Start: 1995 Zoster Vaccines (1 of 2) Zoster Vaccines (1 of 2) [facility] Start: 1995 [facility] Start: 1990 COLOGUARD (FIT-DNA) COLOGUARD (FIT-DNA) [facility] Start: 1990 Colonoscopy COLONOSCOPY [facility] Start: 1990 COLORECTAL CANCER SCREENING COLORECTAL CANCER SCREENING [facility] Start: [address] COLONOGRAPHY [facility] Start: 1990 FECAL OCCULT BLOOD FECAL OCCULT BLOOD [facility] Start: 1990 SIGMOIDOSCOPY SIGMOIDOSCOPY [facility] Start: 1964 DTaP/Tdap/Td vaccine (1 - Tdap) DTaP/Tdap/Td vaccine (1 - Tdap) [facility] Start: 1964 DTaP/Tdap/Td Vaccines (1 - Tdap) DTaP/Tdap/Td Vaccines (1 - Tdap) [facility] Start: 1964 Hepatitis A Vaccines (1 of 2 - Risk 2-dose series) Hepatitis A Vaccines (1 of 2 - Risk 2-dose series) [facility] Start: 1964 Urine microalbumin profile [facility] Start: 1964 Urine screening for protein Diabetes: Urine Protein Screening [facility] Start: 1964 [facility] Start: 1963 ANNUAL PCP TEAM CHRONIC DISEASE VISIT ANNUAL PCP TEAM CHRONIC DISEASE VISIT [facility] Start: 1963 Anxiety Screening Anxiety Screening [facility] Start: 1963 BP CONTROLLED (<130/80) BP CONTROLLED (<130/80) [facility] Start: 1963 HEPATITIS C SCREENING HEPATITIS C SCREENING [facility] Start: 1963 Hepatitis C screening [facility] Start: 1957 COVID-19 VACCINE (1) COVID-19 VACCINE (1) [facility] Start: 1957 Depression Monitoring Depression Monitoring [facility] Start: 1957 Depression Screen Depression Screen [facility] Start: 1957 Depression Screening Depression Screening [facility] Start: 1957 [facility] Start: 1956 DTaP/Tdap/Td vaccine (1 - Tdap) DTaP/Tdap/Td vaccine (1 - Tdap) [facility] Work Phone: Start: 1955 [object Object] DIABETIC FOOT EXAM [facility] Start: 1955 Diabetic foot examination [facility] Start: 1955 Glaucoma screening Dilated Retinal Exam [facility] Start: 1955 Hepatitis B screening URINE ALBUMIN:CREATININE RATIO [facility] Start: 1955 Hepatitis C antibody, confirmatory test DILATED RETINAL EXAM [facility] Start: 1955 Preventive dental service Diabetes: Dental Exam [facility] Start: 1951 PNEUMOCOCCAL: 65+ (1 - PCV) PNEUMOCOCCAL: 65+ (1 - PCV) [facility] Start: 1950 COVID-19 Vaccine (1) COVID-19 Vaccine (1) [facility] Start: 1950 HbA1c (Bld) [Mass fraction] HBA1C [facility] Start: 1946 Hepatitis A Vaccines (1 of 2 - Risk 2-dose series) Hepatitis A Vaccines (1 of 2 - Risk 2-dose series) [facility] Start: 1945 Annual Wellness Visit (AWV) Annual Wellness Visit (AWV) [facility] Start: 1945 Echocardiography Echocardiogram [facility] Start: 1945 Hemoglobin A1c measurement Diabetes: Hemoglobin A1C [facility] Start: 1945 Hepatitis B Vaccines (1 of 3 - 3-dose series) Hepatitis B Vaccines (1 of 3 - 3-dose series) [facility] Start: 1945 Hepatitis C screen Hepatitis C screen [facility] Work Phone: Start: 1945 Hepatitis C screening Hepatitis C screen [place], [place] Start: 1945 Lipid panel Lipid Panel [facility] Start: 1945 Medicare Advantage Annual Wellness Visit (AWV) Medicare Advantage Annual Wellness Visit (AWV) [facility] Start: 1945 Screening for osteoporosis Bone Density Scan [facility] Bacteria identified in Blood by Culture [facility] Bacteria identified in Urine by Culture Urine culture Microbiology STAT 11/17/2022 9:[address] [facility] Work Phone: Comprehensive Metabo lic Panel w/ Reflex to MG Comprehensive Metabolic Panel w/ Reflex to MG Lab Routine Daily until discontinued starting 12/14/2021, 8 completed [facility] Work Phone: Comment on above: Daily until discontinued starting 2021, 8 completed Glucose [Mass/volume ] in Serum or Plasma [facility] Work Phone: Comment on above: As Needed until discontinued starting 05 /03/2022 4X Daily (AC & HS) u ntil discontinued starting 12/13/2021 End: 06-26-2024 Hemoglobin [Mass/volume] in Blood [facility] Work Phone: Hemoglobin A1c/Hemoglobin.total in Blood HEMOGLOBIN A1C (POC) Lab Routine Type 2 diabetes mellitus with stage 3 chronic kidney disease, without long-term current use of insulin, unspecified whether stage 3a or 3b CKD (HCC) Ordered: 06/27/2023 [facility] Work Phone: Comment on above: Ordered: 06/27/2023 Hemoglobin A1c/Hemoglobin.total in Blood HEMOGLOBIN A1C (POC) Lab Routine Type 2 diabetes mellitus with stage 3 chronic kidney disease, without long-term current use of insulin, unspecified whether stage 3a or 3b CKD (HCC) Ordered: 01/06/2024 [facility] Work Phone: Comment on above: Ordered: 01/06/2024 Oxygen therapy [Mini [facility] Data Set] Initiate Oxygen Therapy Protocol Respiratory Care Routine As Needed until discontinued starting 12/13/2021 [facility] Work Phone: Comment on above: As Needed until discontinued starting UA DIP, URINE (POC) UA DIP, URIN E (POC) Lab Routine Urinary frequency Ordered: 03/07/2023 [facility] Work Phone: Comment on above: Ordered: 03/07/2023 UA DIP, URINE (POC) UA DIP, URIN E (POC) Lab Routine Recurrent UTI (urinary tract infection) Ordered: 06/27/2023 [facility] Work Phone: Comment on above: Ordered: 06/27/2023 UA DIP, URINE (POC) UA DIP, URIN E (POC) Lab Routine Dysuria Ordered: 12/07/2023 [facility] Work Phone: Comment on above: Ordered: 12/07/2023 End: 09-03-2022 Urinalysis complete panel - Urine URINALYSIS, WITH MICROSCOPIC Lab Routine Hyperlipidemia, mixed 1 Occurrences starting 09/03/2021 until 09/03/2022 [facility] Work Phone: Comment on above: 1 Occurrences starting 09/03/2021 until 09/03/2022 End: 04-05-2024 US DVT LOWER RIGHT US DVT LOWER RIGHT Radiology STAT Right leg swelling 1 Occurrences starting 03/07/2023 until 04/05/2024 [facility] Work Phone: Comment on above: 1 Occurrences starting 03/07/2023 until 04/05/2024 End: 02-04-2025 US Kidney - bilateral and Urinary bladder US KIDNEY/BLADDER Radiology Routine CKD (chronic kidney disease) stage 4, GFR 15-29 ml/min ([facility]) 1 Occurrences starting 01/06/2024 until 02/04/2025 [facility] Comment on above: 1 Occurrences starting 01/06/2024 until 02/04/2025 End: 06-02-2023 US KIDNEY/BLADDER US KIDNEY/BLADDER Radiology Routine BARRY (acute kidney injury) ([facility]) 1 Occurrences starting 05/03/2022 until 06/02/2023 [facility] Work Phone: Comment on above: 1 Occurrences starting 05/03/2022 until 06/02/2023 End: 01-26-2024 [facility] Work Phone: Comment on above: Once for 1 Occurrences starting 01/26/20 until 01/26/2024 End: 04-25-2024 [facility] Work Phone: Comment on above: Once for 1 Occurrences starting 04/25/20 until 04/25/2024 End: 12-22-2021 Vancomycin Level, Trough Vancomycin Level, Trough Lab Timed One Time for 1 Occurrences starting 12/22/2021 until 12/22/2021 [facility] Work Phone: Comment on above: One Time for 1 Occurrences starting 12/06 until 12/22/2021 [facility] Immunizations Immunization Date Immunization Notes Care Provider Fa tramaine 06-26-2024 influenza vaccine A& B surf ant adjuvanted (Fluad) HIGH-DOSE injection 0.5 mL Kaiden David MD Work Phone: [facility] 04-15-2021 COVID-19 original vaccine, full dose, monovalent (MODERNA) Komal Lalit DO Work Phone: [facility] 04-07-2020 influenza nasal, unspecified formulation [place] Lalit DO Work Phone: [facility] 04-07-2020 unknown vaccine or immune globulin [place] Lalit DO Work Phone: [facility] 04-07-2020 influenza virus vaccine, unspecified formulation Ajit Nesheim DO Work Phone: [facility] 06-27-2019 influenza virus vaccine, unspecified formulation Komal Lalit DO Work Phone: [facility] 06-25-2019 influenza, injectabl e, quadrivalent, contains preservative [place] Lalit DO Work Phone: [facility] 05-12-2018 influenza, high dose seasonal, preservative-free [place] Lalit DO Work Phone: [facility] 05-27-2017 influenza, high dose seasonal, preservative-free [place] Lalit DO Work Phone: [facility] 03-28-2017 influenza, high dose seasonal, preservative-free [place] Lalit DO Work Phone: [facility] 02-25-2017 pneumococcal conjuga te vaccine, 13 valent Komal Lalit DO Work Phone: [facility] Work Phone: 04-08-2016 influenza, high dose seasonal, preservative-free [place] Lalit DO Work Phone: [facility] 04-08-2016 pneumococcal conjuga te vaccine, 13 valent [place] Lalit DO Work Phone: [facility] Payers Date Payer Category Payer Medicare [id number] 2024 Self-pay 2023 Medicare HMO [id number] 2022 Medicaid [id number] 2022 Medicaid [id number] 2022 Commercial Managed C are - HMO [id number] 2022 Medicare [id number] 2022 Unknown [id number] 2020 Unknown [employer] M [employer] [address] [id number] 2020-Present [address] [place] [address] [id number] 2019 Unknown [id number] 2019 Unknown [id number] 2017 Medicare MEDICARE MEDICAR E PART A AND B [id number] 2017-Present [phone] [place] [address] [id number] 2017 Medicare MEDICARE MEDICAR E PART A AND B xxxxxxxxxx 2017-Present [phone] [place] [address] xxxxxxxxxx [id number] 2017 Medicare [id number] 2010 Medicare [id number] 2010 Medicare [id number] Unknown [id number] .462 Unknown [id number] .462 Unknown [id number] .462 Unknown [id number] .462 Unknown [id number] .462 Unknown [id number] .462 Unknown [id number] .462 Unknown [id number] .462 Unknown [id number] .462 Unknown [id number] .462 Unknown [id number] .462 Unknown [id number] .462 Unknown [id number] .462 Unknown [id number] .462 Unknown [id number] .462 Unknown [id number] .462 Social History Date Type Detail Facility Start: 08-28-2020 End: 11-22-2022 Tobacco smoking status NHIS Former smoker [facility] Start: 08-28-2020 End: 11-22-2022 Tobacco use and exposure Never used [facility] Start: 08-28-2020 End: 06-25-2024 Alcohol intake Current non-drinker of alcohol (finding) [facility] Work Phone: Start: 1945 Sex Assigned At Not on file [facility] Work Phone: Start: 08-17-2021 End: 03-30-2023 Exposure to SARS-CoV-2 (event) Not sure [facility] Start: 12-26-2017 End: 08-25-2019 Tobacco smoking status NHIS Never smoker [facility] Work Phone: Start: 12-13-2021 History SDOH Alcohol Frequency 1 [facility] [employer] Phone: History of tobacco use Current smoker [facility] Start: 12-13-2022 End: 06-25-2024 History of Social function [facility] Start: 12-13-2022 End: 06-25-2024 Tobacco use panel [facility] Adult Depression Screening Assessment 0 [facility] Within the last year , have you been afraid of your partner or ex-partner? No [facility] Are you now , , , , never or living with a partner? [facility] How often to you hav e a drink containing alcohol? Never [facility] How hard is it for y ou to pay for the very basics like food, housing, medical care, and heating Somewhat hard [facility] Do you feel stress - tense, restless, nervous, or anxious, or unable to sleep at night because your mind is troubled all the time - these days [OSQ] To some extent [facility] (I/We) worried wheth er (my/our) food would run out before (I/we) got money to buy more. Sometimes true [facility] Start: 1945 Sex assigned at Female [facility] [employer] Start: 01-28-2024 Gender identity Identifies as female gender (finding) [facility] Start: 01-28-2024 Sexual orientation Heterosexual (martha gregory) [employer] (I/We) worried wheth er (my/our) food would run out before (I/we) got money to buy more. Never true [facility] Start: 03-08-2022 End: 11-27-2024 Sex Female (finding) [facility] [employer] In the past 12 month s, how many times have you moved where you were living? In the past 12 months, how many times have you moved where you were living? [facility] Lucky Sort Tobacco smoking stat [facility] Unknown if ever smoked [facility] Work Phone: Medical Equipment Procedure Code Equipment Code Equipment Original Text Equipment Identifier Dates [id number], [id number], [id number], [id number] Start: 06-27-2020 End: 06-11-2024 Comment on above: twice daily. USE TO TEST BLOOD SUGAR TWICE A DAY Accu-Chek Kenroy Plus test strips USE TO TEST BLOOD SUGAR TWICE A DAY 1 Strip twice daily. USE TO TEST BLOOD SUGAR TWICE A DAY 1 STRIP TWICE DAILY. USE INSTRUCTED twice daily. Use as instructed 1 Each twice daily. Use to test blood prince gar BID [id number] Start: 05-31-2024 [id number] Start: 05-31-2024 [id number] Start: 05-31-2024 Clinical Notes 08-25-2019 to 01-11-2025 Meet Madonna Poole MD - 01/11/2025 3:15 PM EDTTelephone Encounter - Shadia Hernandez RN - 10/02/2024 10:24 AM ESTTelephone Encounter - Shadia Hernandez RN - 10/02/2024 10:24 AM ESTDischarge Instr - COCAttachments Note Date & Type Note Facility 01-11-2025 History of Present illness Narrative [facility] Cardiology [facility] CARDIOLOGY [address] [address] Dept: [phone] Dept Loc: [phone] Visit type: Established : 1945 Chief Complaint: Chief Complaint Patient presents with Follow-up History of Present Illness: Mikel Winston is a 79 y.o. female with past medical history of CAD s/p CABG (2018) and PCI (2018, moderate aortic stenosis, obesity, T2DM, CKD stage 3, HTN, secondary AV block status post pacemaker implant, and hypothyroidism. She feels well. Denies any acute complaints. She denies chest pain, shortness of breath, dizziness, palpitation, syncope, presyncope, or any other acute complaints. Past Medical History: Medical History[1] Past Surgical History Surgical History[2] Family History Family History[3] Social History Social History[4] Allergies: Allergies[5] Medications: Current Medications[6] Review of Systems: Review of Systems Constitutional: Negative. HENT: Negative. Eyes: Negative. Respiratory: Positive for shortness of breath. Cardiovascular: Positive for leg swelling. Gastrointestinal: Negative. Endocrine: Negative. Genitourinary: Negative. Musculoskeletal: Negative. Skin: Negative. Allergic/Immunologic: Negative. Neurological: Negative. Hematological: Negative. Psychiatric/Behavioral: Negative. Physical Examination: Vitals: Vitals: 01/11/25 1516 01/11/25 1530 BP: (!) 150/78 (!) 144/74 BP Location: Left arm Left arm Patient Position: Sitting Sitting BP Cuff Size: Adult Pulse: 84 SpO2: 97% Weight: 202 lb (91.6 kg) Height: 5' 4 (1.626 m) Body mass index is 34.67 kg/m . Physical Exam Constitutional: Appearance: Normal appearance. HENT: Head: Normocephalic and atraumatic. Mouth/Throat: Mouth: Mucous membranes are moist. Eyes: Extraocular Movements: Extraocular movements intact. Cardiovascular: Rate and Rhythm: Normal rate and regular rhythm. Pulses: Normal pulses. Heart sounds: Normal heart sounds. Pulmonary: Effort: Pulmonary effort is normal. Breath sounds: Normal breath sounds. Abdominal: Palpations: Abdomen is soft. Musculoskeletal: General: Normal range of motion. Cervical back: Normal range of motion and neck supple. Skin: General: Skin is warm and dry. Neurological: General: No focal deficit present. Mental Status: She is alert and oriented to person, place, and time. Psychiatric: Mood and Affect: Mood normal. Behavior: Behavior normal. Thought Content: Thought content normal. Judgment: Judgment normal. Laboratory Tests: Lab Results Component Value Date WBC 5.7 07/04/2024 HGB 7.7 (L) 07/04/2024 HCT 25.2 (L) 07/04/2024 MCV 101.6 (H) 07/04/2024 PLT 94 (L) 07/04/2024 Lab Results Component Value Date GLUCOSE 98 07/04/2024 CALCIUM 8.4 07/04/2024 NA 136 07/04/2024 K 3.8 07/04/2024 CO2 28 07/04/2024 CL 110 (H) 07/04/2024 BUN 20 (H) 07/04/2024 CREATININE 1.22 (H) 07/04/2024 @LASTCMP@ No results found for: CHLPL, CHOL No results found for: TRIG No results found for: HDL No results found for: LDLCALC NT PRO BNP Date Value Ref Range Status 05/29/2024 3,820 (H) <20 - 300 pg/mL Final Assessment and Plan: 1. Second degree heart block 2. Essential hypertension 3. Cardiac pacemaker in situ Second degree heart block - Device interrogation shows normal function stable lead parameters - Continue to follow regularly with device clinic Hypertension - She was recently restarted on metoprolol. Will defer management of antihypertensive medications to Dr. Wayne. She will follow-up regularly with our device clinic and see EP as needed in the future. [1] Past Medical History: Diagnosis Date CAD (coronary artery disease) Cirrhosis of liver (HCC) Diabetes mellitus (HCC) Hypertension Osteoporosis Thyroid disease [2] Past Surgical History: Procedure Laterality Date APPENDECTOMY CARDIAC ELECTROPHYSIOLOGY PROCEDURE N/A 05/31/2024 Performed by Pravin Poole MD at [facility] Cardiac Cath/EP Lab CHOLECYSTECTOMY CORONARY ARTERY BYPASS GRAFT TOTAL KNEE ARTHROPLASTY Right TUBAL LIGATION [3] Family History Problem Relation Name Age of Onset Stroke Father's Brother Diabetes Father Mental illness Mother Coronary artery disease Brother [4] Social History Tobacco Use Smoking status: Never Smokeless tobacco: Never Substance Use Topics Alcohol use: No Drug use: No [5] Allergies Allergen Reactions Codeine Hives [6] Current Outpatient Medications: alpha tocopherol (Vitamin E) 100 units capsule, Take 100 Units by mouth daily., Disp: , Rfl: Cholecalciferol (Vitamin D) 125 MCG (5000 UT) capsule, Take 5,000 Units by mouth daily., Disp: , Rfl: cholecalciferol (Vitamin D3) 200 Unit tablet split tablet, Take 5,000 Units by mouth daily., Disp: , Rfl: cyanocobalamin (Vitamin B-12) 100 MCG tablet, Take 100 mcg by mouth daily., Disp: , Rfl: ferrous sulfate 325 (65 Fe) MG tablet, Take 325 mg by mouth daily (with breakfast)., Disp: , Rfl: furosemide (Lasix) 20 MG tablet, 3 days in a row (Patient taking differently: Take 20 mg by mouth Daily as needed (pt decides prn based on swelling BLE). 3 days in a row), Disp: 100 tablet, Rfl: 3 levothyroxine (Synthroid, Levoxyl) 50 MCG tablet, TAKE 1 TABLET BY MOUTH DAILY, Disp: 30 tablet, Rfl: 3 metoprolol succinate XL (Toprol-XL) 50 MG 24 hr tablet, Take 1 tablet (50 mg) by mouth daily. Do not crush or chew., Disp: 90 tablet, Rfl: 3 rosuvastatin (Crestor) 20 MG tablet, Take 1 tablet (20 mg) by mouth daily., Disp: 90 tablet, Rfl: 3 SITagliptin (Januvia) 25 MG tablet, Take 1 tablet (25 mg) by mouth daily., Disp: 30 tablet, Rfl: 1 trolamine salicylate (Aspercreme) 10 % cream, Apply topically every 8 hours as needed (for muscle pain)., Disp: , Rfl: documented in this encounter [facility] 10-02-2024 Telephone encounter Note PC to [facility], I spoke with Diego MARRERO Reviewed verbal order. Will send to [facility] pharmacy as well. She verbalized understanding. [facility] 10-02-2024 Miscellaneous Notes PC to [facility], I spoke with Diego MARRERO Reviewed verbal order. Will send to [facility] pharmacy as well. She verbalized understanding. Called, Jaylena RN was alittle concerned BP past week, she has not been on RX since PM inserted 2/16 -168/70 2/17 -144/68 2/18-158/64 2/19-143/66 2-20-136/68 2/22-148-72 2-23-146/70 HR 70-80 no HF SX , wt stable,no complaints, will inform Dianelys Rajwinder MARRERO from [facility] requesting return call to clarify medications and BP [phone]. May ask for nurse documented in this encounter [facility] 10-01-2024 Telephone encounter Note Diego Paulson RN was alittle concerned BP past week, she has not been on RX since PM inserted 2 -168/70 2/17 -144/68 2/18-158/64 2/-143/66 2-20-136/68 2/-148-72 2-23-146/70 HR 70-80 no HF SX , wt stable,no complaints, will inform Dianelys [facility] 10-01-2024 Telephone encounter Note Rajwinder MARREOR from [facility] requesting return call to clarify medications and BP [phone]. May ask for nurse [facility] 08-03-2024 Note HNO ID: [id number] Author: GOGO BARBOSA RN Service: ? Author Type: Registered Nurse Type: Progress Notes Filed: 08/03/2024 15:49 Note Text: Spoke with Glenda at [facility], patient is now a permanent resident under the care of facility physician, Dr. Adin Elias, JATIN . Dr. Adin Elias, CARDIOVASCULAR DISEASE SPECIALIST will manage all patient care hereafter (including refilling prescriptions). [facility] chart updated to reflect PCP change. Gogo Barbosa RN [facility] 08-03-2024 History of Present illness Narrative Spoke with Glenda at [facility], patient is now a permanent resident under the care of facility physician, Dr. Adin Elias CNP . Dr. Adin Elias CNP will manage all patient care hereafter (including refilling prescriptions). [facility] chart updated to reflect PCP change. Gogo Barbosa RN documented in this encounter [facility] 08-03-2024 Note Patient Outreach (AG ACM) MIKEL WINSTON ([id number]) 1945 F Date Time Provider Department 08/03/24 GOGO BARBOSA [facility] During your visit today, we recorded the following information about you: Gogo Barbosa RN 08/03/2024 3:49 PM Signed Spoke with Glenda at [facility], patient is now a permanent resident under the care of facility physician, Dr. Adin Elias CNP . Dr. Adin Elias CNP will manage all patient care hereafter (including refilling prescriptions). [facility] chart updated to reflect PCP change. 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 - trolamine salicylate (MYOFLEX) 10 % cream Apply 1 Each to affected area three times a day as needed. - amLODIPine (NORVASC) 5 mg tablet Take 1 tablet by mouth once daily. - blood sugar diagnostic (BLOOD GLUCOSE TEST) test strip Use to test blood sugar BID - SITagliptin phosphate (JANUVIA) 25 mg tablet Take 1 tablet by mouth once daily. - levothyroxine (SYNTHROID) 50 mcg tablet take 1 tablet by mouth every day - nystatin (MYCOSTATIN) powder Apply 1 application to affected area three times a day. APPLY TO AFFECTED AREA - ferrous sulfate 325 mg (65 mg iron) tablet Take 1 tablet by mouth every afternoon. - fluticasone (FLONASE) 50 mcg/actuation nasal spray Use 2 Sprays in each nostril once daily. - rosuvastatin (CRESTOR) 20 mg tablet Take 1 tablet by mouth once daily. - VITAMIN B-12 1,000 mcg tab take 1 tablet by mouth every day - Blood-Glucose Meter Use to test blood sugar - Lancets lancets Use to test blood sugar BID - cholecalciferol, vitamin D3, (VITAMIN D3 ORAL) Take by mouth. - aspirin 81 mg chewable tablet Take 81 mg by mouth. - Vitamin E, dl, acetate, (VITAMIN E) 400 unit capsule Take 800 Units by mouth. Problem List As Of Date 08/03/2024 Noted Resolved Hypertension [I10] Hyperlipidemia, mixed [E78.2] 08/28/2020 Diabetes (HCC) [E11.9] 08/28/2020 Generalized edema [R60.1] 08/28/2020 Hypothyroidism, acquired [E03.9] 08/28/2020 History of DVT (deep vein thrombosis) [Z86.718] 08/28/2020 Nocturnal hypoxia [G47.34] 08/28/2020 Seasonal allergies [J30.2] 11/26/2020 Blood infection [B99.9] 01/24/2022 Bilateral leg edema [R60.0] 05/03/2022 Chronic kidney disease, stage 3b (HCC) [N18.32] 12/01/2022 Acute deep vein thrombosis (DVT) of other speci*12/01/2022 Congestive heart failure, unspecified HF chroni*12/01/2022 Angina at rest (HCC) [I20.89] 12/01/2022 Class 1 obesity with body mass index (BMI) of 3*12/01/2022 Systolic murmur [R01.1] 12/26/2022 Platelets decreased (HCC) [D69.6] 12/26/2022 Depression [F32.A] 12/11/2023 BARRY (acute kidney injury) (HCC) [N17.9] 11/18/2022 Cellulitis of right lower extremity [L03.115] 01/28/2024 Coronary artery disease involving coronary bypa*09/30/2022 Dyslipidemia [E78.5] 09/30/2022 Nonrheumatic aortic valve stenosis [I35.0] 09/30/2022 Kidney disease [N28.9] 03/21/2024 BARRON (nonalcoholic steatohepatitis) [K75.81] 03/21/2024 History of colon polyps [Z86.0100] 03/21/2024 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 Author Type: Registered Nurse Type: Progress Notes Filed: 2024 09:36 Note Text: TRANSITION CARE MANAGEMENT (TCM) DISCHARGE TO POST ACUTE FACILITY POST ACUTE TRANSFER SUMMARY: -Pt discharged from [facility] on 07/04/2024. -Post Acute Facility Admitted to [facility] -Admitted for: Altered mental status Office PCC will follow at discharge. Gogo Barbosa RN 2024 [facility] 2024 History of Present illness Narrative TRANSITION CARE MANAGEMENT (TCM) DISCHARGE TO POST ACUTE FACILITY POST ACUTE TRANSFER SUMMARY: -Pt discharged from [facility] on 07/04/2024. -Post Acute Facility Admitted to [facility] -Admitted for: Altered mental status Office PCC will follow at discharge. Gogo Barbosa RN 2024 documented in this encounter [facility] 2024 Note Patient Outreach (AG ACM) MIKEL WINSTON ([id number]) 1945 F Date Time Provider Department 07/13/24 GOGO BARBOSA [facility] During your visit today, we recorded the following information about you: Gogo Barbosa RN 2024 9:36 AM Signed TRANSITION CARE MANAGEMENT (TCM) DISCHARGE TO POST ACUTE FACILITY POST ACUTE TRANSFER SUMMARY: -Pt discharged from [facility] on 07/04/2024. -Post Acute Facility Admitted to [facility] -Admitted for: Altered mental status Office PCC will follow at discharge. Gogo Barbosa RN 2024 Allergies As of Date: 2024 Noted Allergy Reaction CODEINE 02/24/2016 4 - Hives 2 - Rash CODEINE SULFATE 06/13/2018 16 - Unknown Date Reviewed: 06/11/2024 Reviewed by: Stephanie Estrella MA Student - Fully Assessed Reason for Visit: Transition Of Care [4074] Cmt: [facility] Discharge to SNF Prescriptions as of 2024 - silver sulfADIAZINE (SILVADENE) 1 % cream Apply 1 application to affected area two times a day. - trolamine salicylate (MYOFLEX) 10 % cream Apply 1 Each to affected area three times a day as needed. - amLODIPine (NORVASC) 5 mg tablet Take 1 tablet by mouth once daily. - blood sugar diagnostic (BLOOD GLUCOSE TEST) test strip Use to test blood sugar BID - SITagliptin phosphate (JANUVIA) 25 mg tablet Take 1 tablet by mouth once daily. - levothyroxine (SYNTHROID) 50 mcg tablet take 1 tablet by mouth every day - nystatin (MYCOSTATIN) powder Apply 1 application to affected area three times a day. APPLY TO AFFECTED AREA - ferrous sulfate 325 mg (65 mg iron) tablet Take 1 tablet by mouth every afternoon. - fluticasone (FLONASE) 50 mcg/actuation nasal spray Use 2 Sprays in each nostril once daily. - rosuvastatin (CRESTOR) 20 mg tablet Take 1 tablet by mouth once daily. - VITAMIN B-12 1,000 mcg tab take 1 tablet by mouth every day - Blood-Glucose Meter Use to test blood sugar - Lancets lancets Use to test blood sugar BID - cholecalciferol, vitamin D3, (VITAMIN D3 ORAL) Take by mouth. - aspirin 81 mg chewable tablet Take 81 mg by mouth. - Vitamin E, dl, acetate, (VITAMIN E) 400 unit capsule Take 800 Units by mouth. Problem List As Of Date 2024 Noted Resolved Hypertension [I10] Hyperlipidemia, mixed [E78.2] 08/28/2020 Diabetes (HCC) [E11.9] 08/28/2020 Generalized edema [R60.1] 08/28/2020 Hypothyroidism, acquired [E03.9] 08/28/2020 History of DVT (deep vein thrombosis) [Z86.718] 08/28/2020 Nocturnal hypoxia [G47.34] 08/28/2020 Seasonal allergies [J30.2] 11/26/2020 Blood infection [B99.9] 01/24/2022 Bilateral leg edema [R60.0] 05/03/2022 Chronic kidney disease, stage 3b (HCC) [N18.32] 12/01/2022 Acute deep vein thrombosis (DVT) of other speci*12/01/2022 Congestive heart failure, unspecified HF chroni*12/01/2022 Angina at rest (HCC) [I20.89] 12/01/2022 Class 1 obesity with body mass index (BMI) of 3*12/01/2022 Systolic murmur [R01.1] 12/26/2022 Platelets decreased (HCC) [D69.6] 12/26/2022 Depression [F32.A] 12/11/2023 BARRY (acute kidney injury) (HCC) [N17.9] 11/18/2022 Cellulitis of right lower extremity [L03.115] 01/28/2024 Coronary artery disease involving coronary bypa*09/30/2022 Dyslipidemia [E78.5] 09/30/2022 Nonrheumatic aortic valve stenosis [I35.0] 09/30/2022 Kidney disease [N28.9] 03/21/2024 BARRON (nonalcoholic steatohepatitis) [K75.81] 03/21/2024 History of colon polyps [Z86.0100] 03/21/2024 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 Speech-Language Pathology SPEECH LANGUAGE PATHOLOGY [facility] Dysphagia Treatment Note Patient Name: Mikel Winston Evaluation Date: 07/04/2024 Date of : 1945 Admission Date: 06/25/2024 5:04 PM Age: 78 y.o. Room/Bed: [facility] A Subjective Patient alert and cooperative. Seen upright in bed. Answers all basic questions with clear vocal quality. Follows all basic commands. No visitors at bedside. Pt was sitting up with breakfast tray. Current Diet: Dietary Orders (From admission, onward) Start Ordered 06/29/24 1607 Adult diet Easy to Chew Diet effective now Comments: Easy to chew solids and Thin liquids and meds whole in puree Question: Diet type Answer: Easy to Chew 06/29/24 1606 Aspiration Precautions: - Upright positioning for all PO intake - Slow rate of intake - Single bites/sips - Alternate solid and liquids Oxygen: Oxygen Therapy: None (Room air) Pain: Pt denies any current pain. PPE Worn: gloves Objective & Assessment Dysphagia Treatment Dysphagia Activity 1: assess diet tolerance and use of swallow strategies Pt continue on Easy to Chew diet with thin liquids. Pt ordered soft foods for breakfast. She demonstrates functional mastication and oral clearing. 1 throat clearing after multiple bites. Pt without further overt deficits. Encourage sips every few bites as needed. Noted: improved self feeding with hand to mouth and manipulation of foods items. Benefit from assist with set up. Pt with functional orientation and improved awareness of function. Feel pt is appropriate for Regular diet at discharge. Plan & Recommendations Plan: Advance diet to Regular diet with thin liquids and continue the following strategies: Recommend Regular solids and Thin liquids and meds as tolerated and the following precautions: Assist with set up. - Upright positioning for all PO intake - Slow rate of intake - Single bites/sips - Alternate solid and liquids D/C Recommendations: ongoing speech therapy at next level of care; short term as determined after advanced diet. Education Education Given: swallowing strategies, diet recommendations Given To: patient Response: verbalizes understanding Goals Patient Stated Goal: To get back to home routine, doing dishes and washing clothes Encounter Problems Encounter Problems (Active) Swallowing Patient will tolerate the least restrictive diet consistency to allow for safe consumption of daily meals (Progressing) Start: 06/29/24 Expected End: 07/13/24 Patient will demonstrate safe swallowing Intervention/techniques (Progressing) Start: 06/29/24 Expected End: 07/13/24 Patient will tolerate recommended food and liquid consistencies without clinical signs and symptoms of aspirations (Progressing) Start: 06/29/24 Expected End: 07/13/24 Therapy Time [employer] Individual Minutes Time In: 0802 Time Out: 08 Minutes: 17 GUILLERMO Keyes Images from the original note were not included. PHYSICAL THERAPY [facility] Treatment Note Name/MRN: Mikel Winston ([id number]) Date of : 1945 Age: 78 y.o. Room/Bed: [facility] A Visit #: 1 out of 5 visits Discharge Recommendation: Jail Facility Equipment Needed: No Prior Level of Function Prior Level of ADL Function: Independent Prior Level of Mobility: Independent; Device: Front wheeled walker and Rollator Prior Level of Transfers: Independent Assessment Pt demos improvement in functional mobility and progress toward therapy goals. Pt requires min-mod A x1 for functional transfers, min A progressing to CGA for ambulation with FWW. Pt is currently limited by weakness, fatigue and will benefit from acute skilled PT to address current deficits. Recommendation for SNF remains appropriate. Subjective Pt pleasant and agreeable to therapy session Pain: Pt denies any current pain. Medical Precautions: No active isolations Proper PPE donned/doffed in accordance with facility standards. Fall Risk: Jaramillo Fall Risk Score: 85 (Low Risk) Jaramillo Fall Risk Score: 85 (High Risk) Precautions/Restrictions: N/A Overall Cognitive Status: Exceptions - Memory: decreased short term memory - Problem solving: assistance required to generate solutions, assistance required to implement solutions, assistance required to identify errors made, assistance required to correct errors made, and decreased awareness of errors - Sequencing: requires cues for some Overall Orientation Status: Oriented x4 Family/Caregiver Present: none Objective Transfers/Mobility Sit to stand: Min Assist, Mod Assist Stand to sit: Min Assist Pt completes x2 sit<->stand transfers from recliner to FWW. Pt requires initial min A regressing to mod A to boost into upright stand with cues for hand placement with minimal carryover between trials. Pt requires min A x1 to assist in controlled descent with cues for hand placement. Cues for light LUE assist 2/2 recent pacemaker Device(s) used: Front wheeled walker Ambulation Ambulation 1 Assistive device(s) used: Front wheeled walker Assist level: Contact Guard, Min Assist Distance (ft): ~10 feet x1 Quality of gait: reciprocal stepping, shuffling, slow elba Pt demos short, reciprocal gait pattern, decreased gait speed. Pt requires initial min A for stability progressing to CGA with time. Cues provided for FWW management with fair carryover. Increased time to complete short distance ambulation. Balance During Session: Posture: fair Standing - Static: Contact Guard, Min Assist Standing - Dynamic: Contact Guard, Min Assist Pt completes static and dynamic standing balance for pericare requiring fluctuating CGA to min A with mild retro lean. Pt tolerates ~4 minutes standing balance with cues for upright posture. Plan Continue acute PT per plan of care. Safety/Education Safety Safety Devices in place: All fall risk precautions in place, call light within reach, left in chair, gait belt, patient at risk for falls, nurse notified, and no alarms engaged upon entry Restraints: N/A Education Education Given To: patient Education Provided: PT Role, PT Goals, Gait Training, Plan of Care, Transfer Training, Energy Conservation, Equipment, Discharge Recommendations, and Benefits of Increasing Activity Education Method: Verbal and Demonstration Barriers to Learning: None Education Outcome: Verbalized Understanding, Demonstrated Understanding, and Continued Education Needed Outcome Measures AM-PAC AM-PAC Inpatient Mobility Raw Score (No Stairs) : 15 Goals Patient Stated Goal: to get better Encounter Problems Encounter Problems (Active) Exercise Patient will complete lower extremity exercises for 1-2 sets / 5-10 reps in order to improve strength and activity tolerance for mobility. (Not Addressed) Start: 07/02/24 Expected End: 07/09/24 Mobility Patient will ambulate 75 feet with SBA and rolling walker in order to improve safety and independence with mobility. (Progressing) Start: 07/02/24 Expected End: 07/09/24 Transfers Patient will perform bed mobility with modified independence in order to improve independence and prepare for out of bed mobility. (Not Addressed) Start: 07/02/24 Expected End: 07/09/24 Patient will complete functional transfer with rolling walker with modified independence in order to prepare for ambulation. (Progressing) Start: 07/02/24 Expected End: 07/09/24 Therapy Time Individual Co-treatment Time In 1118 Time Out 1137 Minutes 19 Timed Code Treatment Minutes: 16 Minutes (ther act x1) Sadia Navarro PT Images from the original note were not included. Speech-Language Pathology SPEECH LANGUAGE PATHOLOGY [facility] Dysphagia Treatment Note Patient Name: Mikel Winston Evaluation Date: 07/03/2024 Date of : 1945 Admission Date: 06/25/2024 5:04 PM Age: 78 y.o. Room/Bed: B2249/B2-249 A Subjective Patient alert and cooperative. Seen upright in bedside chair. Answers all basic questions with clear vocal quality. Follows all basic commands. No visitors at bedside. Current Diet: Dietary Orders (From admission, onward) Start Ordered 06/29/24 1607 Adult diet Easy to Chew Diet effective now Comments: Easy to chew solids and Thin liquids and meds whole in puree Question: Diet type Answer: Easy to Chew 06/29/24 1606 Aspiration Precautions: - Upright positioning for all PO intake - Slow rate of intake - Small bites/sips - Alternate solid and liquids Oxygen: Oxygen Therapy: None (Room air) I think I am doing better, do you? Pain: Pt denies any current pain. PPE Worn: gloves Objective & Assessment Dysphagia Treatment Dysphagia Activity 1: assess diet tolerance and use of swallow strategies Pt with good level of alertness and asked to be up in the chair. Pt was agreeable to advanced diet trials this date. Indicated that breakfast meats were not allowed on current diet. Ordered reg-training meal of sausage link and lemons. Pt does continue to need assist with set up and cutting up at times. Arms / hands apparently becoming for functional for self feeding, however she continues with fine motor deficits with coordination and if tray if elevated somewhat. She benefits from assist with set up and cut up as needed. Pt was able to modify bite sizes with biting current bites Off original piece if the bite is too large. Good self monitoring and self feeding after set up. Mastication is prolonged with functional oral clearing. +slower rate encouraged as well concern for reflux (not noted in chart, pt reported some h/o same.) Plan & Recommendations Plan: Advance diet to Regular. Assess tolerance prandial of regular diet. Recommend Regular solids and Thin liquids and meds as tolerated and the following precautions: Assist with set up - Upright positioning for all PO intake - Slow rate of intake - Single bites/sips - Alternate solid and liquids D/C Recommendations: to be determined Education Education Given: swallowing strategies, diet recommendations Given To: patient Response: demonstrated understanding Goals Patient Stated Goal: None stated this date. 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 OCCUPATIONAL THERAPY [facility] Treatment Note Name/MRN: Mikel Winston ([id number]) Date of : 1945 Age: 78 y.o. Room/Bed: B2-249/B2-249 A Visit #: 1 out of 7 visits Discharge Recommendation: Jail Facility Equipment Needed: No Prior Level of Function Prior Level of ADL Function: Independent Prior Level of Mobility: Independent; Device: Front wheeled walker and Rollator Prior Level of Transfers: Independent Assessment Pt making fair progress during OT tx today. She completed bed mobility and transfers with Min A using the FWW. Pt required Max A for LB ADLs. Pt was sitting up in a chair at end of session. She remains below baseline overall and would benefit from a SNF upon DC. Subjective Pt very pleasant and agreeable to therapy treatment, finishing breakfast and willing to get up to a chair. Pain: Pt denies any current pain. Medical Precautions: No active isolations Proper PPE donned/doffed in accordance with facility standards. Fall Risk: Jaramillo Fall Risk Score: 85 (Low Risk) Jaramillo Fall Risk Score: 85 (High Risk) Precautions/Restrictions: N/A Family/Caregiver Present: none Objective ADLs LE Dressing: Max Assist Toileting: Max Assist Pt attempted to don socks while sitting at EOB using the figure 4 technique but was unsuccessful d/t decreased functional reach. She required max A to don new socks. Upon standing from EOB, pt reported feeling incontinent. Brief was noted to be soiled with urine and small amount of stool. She required assist to doff the soiled brief. Max A to thread B LEs into new briefs. Pt assisted with pulling briefs up over hips but required assist to thoroughly manage briefs up over buttocks. She required assist for posterior hygiene while standing. Bed Mobility Supine to sit: Min Assist Scooting: Min Assist Pt able to swing her legs off EOB but required min A RECEPTIONIST DOCTOR'S OFFICE to elevate trunk. Additional time required to complete with HOB elevated. Chucks pad used to scoot pt closer to EOB. She denied dizziness with positional changes and was seated in the recliner at end of session. Transfers/Mobility Sit to stand: Min Assist Stand to sit: Min Assist Stand step: Min Assist Standing balance: Min Assist Pt able to stand from EOB to FWW with min A. She completed a stand step transfer with Min A. Pt completed one additional stand from the recliner with min A. She required cues for hand placement during all transfers. Device(s) used: Front wheeled walker Overall Cognitive Status: Exceptions - Following commands: follows one step commands with increased time and follows one step commands with repetition - Memory: decreased recall of recent events and decreased short term memory - Problem solving: assistance required to generate solutions, assistance required to implement solutions, assistance required to identify errors made, assistance required to correct errors made, and decreased awareness of errors - Insights: decreased awareness of deficits - Initiation: requires cues for some - Sequencing: requires cues for some Plan Continue acute OT per plan of care. Safety/Education Safety Safety Devices in place: All fall risk precautions in place, call light within reach, left in chair, gait belt, patient at risk for falls, and nurse notified Restraints: N/A Education Education Given To: patient Education Provided: OT Role, Plan of Care, ADL Adaptive Strategies, Transfer Training, Equipment, Fall Prevention Education, Discharge Recommendations, and Benefits of Increasing Activity Education Method: Verbal Barriers to Learning: Cognition Education Outcome: Continued Education Needed AM-PAC AM-PAC Inpatient Daily Activity Raw Score: 15 ADL Inpatient CMS G-Code Modifier: CK Goals Patient Stated Goal: to get up to a chair Encounter Problems Encounter Problems (Active) Dressing Upper Extremities Patient will complete upper body dressing SBA (Not Addressed) Start: 07/02/24 Expected End: 07/12/24 Dressings Lower Extremities Patient will dress lower body MIN A (Progressing) Start: 07/02/24 Expected End: 07/12/24 Mobility Patient will demonstrate functional mobility with FWW and SBA (Progressing) Start: 07/02/24 Expected End: 07/12/24 Therapeutic Exercise Pt will demo good participation in BUE exercises to increase endurance and strength for participation in ADL tasks. (Not Addressed) Start: 07/02/24 Expected End: 07/12/24 Toileting Patient will complete toileting tasks at bedside commode with SBA. (Not Addressed) Start: 07/02/24 Expected End: 07/12/24 Transfers Patient will complete functional transfer with rolling walker with SBA in order to prepare for ambulation. (Progressing) Start: 07/02/24 Expected End: 07/12/24 Patient will perform bed mobility with modified independence in order to improve independence and prepare for out of bed mobility. (Progressing) Start: 07/02/24 Expected End: 07/12/24 Therapy Time Individual Co-treatment Time In 0829 Time Out 0852 Minutes 23 Timed Code Treatment Minutes: 23 Minutes (1 TA 1 ADL) Margaret Ross OT Images from the original note were not included. OCCUPATIONAL THERAPY [facility] Initial Evaluation Name/MRN: Mikel Winston ([id number]) Evaluation Date: 07/02/2024 Date of : 1945 Admission Date: 06/25/2024 5:04 PM Age: 78 y.o. Room/Bed: [facility]249/[facility]249 A Discharge Recommendation: Jail Facility Equipment Needed: No Assessment IMPRESSION: Pt in 06/25 with c/o AMS, GI bleed, acute cystitis, and increased weakness at this time. She was previously IND for ADLs, functional transfers / mobility with a FWW. She is currently MAX A for LB ADLS, MOD - MIN A for UB ADLs, MOD A - MIN A for transfers / mobility with a FWW. She is limited by increased fatigue, instability, weakness, and poor activity tolerance / cognition at this time. She required MAX increased education this date for safety during transfers / mobility this date with multiple cues for sequencing, initiation, and education on proper device management this date. She was educated on BUE exercises this date to increase strength, endurance, and ROM at this time for participation in further ADL tasks. She would benefit from skilled OT services to address the below. Recommend planned discharge for [facility] OT with assist PRN. Admitting Diagnosis: AMS, GI bleed, acute cystitis. Performance Deficits /Impairments: Decreased Functional Mobility, Decreased ADL status, Decreased Strength, Decreased Safety Awareness, Decreased Endurance, Decreased Balance, and Decreased High Level IADLs Prognosis: Good Decision Making: Medium Complexity Subjective Pleasant and cooperative. OK to see per RN. Agreeable to therapy evaluation. Pain: Pt denies any current pain. Past Medical History: Past Medical History: Diagnosis Date CAD (coronary artery disease) Cirrhosis of liver (HCC) Diabetes mellitus (HCC) Hypertension Osteoporosis Thyroid disease Past Surgical History: Past Surgical History: Procedure Laterality Date APPENDECTOMY CARDIAC ELECTROPHYSIOLOGY PROCEDURE N/A 05/31/2024 Performed by Pravin Poole MD at [facility] Cardiac Cath/EP Lab CHOLECYSTECTOMY CORONARY ARTERY BYPASS GRAFT TOTAL KNEE ARTHROPLASTY Right TUBAL LIGATION Admission Diagnosis: Patient Active Problem List Diagnosis Date Noted Angina at rest (HCC) 12/26/2017 Acute cystitis with hematuria 06/25/2024 Cellulitis of right lower extremity 01/28/2024 BARRY (acute kidney injury) (HCC) 11/18/2022 UTI (urinary tract infection) 11/18/2022 Coronary artery disease involving coronary bypass graft of [place] heart without angina pectoris 09/30/2022 Nonrheumatic aortic valve stenosis 09/30/2022 Essential hypertension 09/30/2022 Dyslipidemia 09/30/2022 Generalized edema 01/27/2022 Diabetes (HCC) 01/27/2022 Symptomatic sinus bradycardia 05/29/2024 Medical Precautions: No active isolations Proper PPE donned/doffed in accordance with facility standards. Fall Risk: Jaramillo Fall Risk Score: 70 (Low Risk) Jaramillo Fall Risk Score: 70 (High Risk) Precautions/Restrictions: N/A Family/Caregiver Present: none Overall Cognitive Status: Exceptions - Arousal/alertness: delayed responses to stimuli - Following commands: follows one step commands with increased time and follows one step commands with repetition - Attention span: attends with cues to redirect - Memory: decreased recall of recent events and decreased short term memory - Problem solving: assistance required to generate solutions, assistance required to implement solutions, assistance required to identify errors made, assistance required to correct errors made, and decreased awareness of errors - Insights: decreased awareness of deficits - Initiation: requires cues for some - Sequencing: requires cues for some Overall Orientation Status: Oriented to Place, Oriented to Time, and Oriented to Person Social/Functional History Patient admitted from home. Lives With: Alone Type of Home: single family home Home Layout: Single Level Home Home Access: Level Entry Bathroom Shower/Tub: Tub/Shower Combo and Washes at sink/bed Toilet: Standard Home Equipment: cane Homemaking Responsibilities: Independent Receives Help From: None Active Sizing Sprayer: No Prior Level of Function Prior Level of ADL Function: Independent Prior Level of Mobility: Independent; Device: Front wheeled walker and Rollator Prior Level of Transfers: Independent Objective ADLs UE Dressing: Min Assist Pt requires increased time for participation in all ADL tasks at this time. She requires increased cueing throughout for sequencing, initiation, problem solving, and safety during completion of ADL tasks. She required increased assist this date to don hospital gown in sitting at EOB with assist for BUE management this date. She fatigues quickly with OOB activity this date with increased reliance on FWW and BUE for safety during static standing tasks. Increased time required to complete all functional tasks. Upper Extremity Assessment AROM: Exceptions: noted with BUE deficits likely 2/2 weakness at this time. BUE shoulder flexion < 90, elbow WFL, BUE hands WFL, however all movements are slow and controlled. PROM: WFL Strength: Exceptions: BUE elbow flexion / extension grossly 3+/5, functional textile screen maker noted to be 4-/5, shoulder flexion 2+/5, extension difficult to assess limited by pt positioning in bed. Vision: not assessed this session Hearing: normal Bed Mobility Supine to sit: Mod Assist Sit to supine: Mod Assist Scooting: Mod Assist HOB elevated, increased time required to complete, denies dizziness with positional changes. Increased reliance on bed rails and pull up on therapist for all positional changes this date. MOD A overall for BLE management to reach EOB, pt able to manage trunk to EOB without physical assist. Increased time required to complete this date. Pt able to complete static sitting at eob with SBA overall and no true LOB. Increased reliance on BUE for support at EOB and FWW for safety. She required assist for BLE management for return to supine this date. MOD A to square hips to EOB with increased time with MAX A to scoot up in bed this date. Increased reliance on bed pads to complete. Transfers/Functional Mobility Sit to stand: Mod Assist Stand to sit: Mod Assist Functional mobility: Min Assist Increased time required to complete all functional tasks this date. She required MOD A for lift into standing with multiple cues throughout for proper hand placement this date. Pt required cueing for proper BLE management at this time with pt initially keeping her legs crossed. Pt with poor problem solving noted throughout, with increased education and cueing provided throughout for sequencing, safety, proper hand placement, BLE management, and proper FWW device use this date. Denies dizziness with positional changes, with MOD A for lift into standing and for controlled descent. Once in standing, pt attempted to initiate side steps on command, however unable to successfully sequencing. Increased education on proper FWW management for side steps, safety, and sequencing required this date. Increased time required to complete with cueing throughout for safety. She was able to take ~ 4 side steps at EOB with MAX cueing throughout for safety. Increased education provided following transfer this date, however pt too fatigued to reattempt following initial transfer. Fair teach back noted at this time with poor memory of recent education noted, multiple reminders provided. Device(s) used: Front wheeled walker Exercise Pt educated on importance on BUE exercises at this time to increase strength, endurance, and ROM for participation in ADLs and transfers this date. Pt completed therapeutic exercises this date with fair teach back. Completed x3 exercises with x5 reps each of elbow flexion / extension, shoulder flexion / extension, and hand grasp / release exercises. Fair recall noted at this time with written hand out provided to pt to assist with recall. Increased time required for completion with rest breaks required between exercises. AM-PAC AM-PAC Inpatient Daily Activity Raw Score: 15 ADL Inpatient CMS G-Code Modifier: CK Plan Pt would benefit from skilled acute OT services to address Strengthening, ROM, Balance Training, Self-Care/ADL Training, Functional Mobility Training, Endurance Training, Safety Education and Training, Equipment Evaluation/Education, Cognitive Reorientation, Patient/Caregiver Training, and Cognitive/Perceptual Training. Frequency: 7 visits during current hospital admission or until additional recommendations are made Barriers: Impaired balance, Lower extremity weakness, Upper extremity weakness, Decreased endurance, Confusion, and Cognitive deficit Safety/Education Safety Safety Devices in place: All fall risk precautions in place, call light within reach, left in bed, bed alarm in place, gait belt, patient at risk for falls, and nurse notified Restraints: No Education Education Given To: patient Education Provided: OT Role, Plan of Care, Precautions, ADL Adaptive Strategies, Transfer Training, Equipment, Fall Prevention Education, Discharge Recommendations, and Benefits of Increasing Activity Education Method: Verbal, Demonstration, and Teach Back Barriers to Learning: Cognition Education Outcome: Verbalized Understanding, Demonstrated Understanding, and Continued Education Needed Goals Patient Stated Goal: to get stronger. Encounter Problems Encounter Problems (Active) Dressing Upper Extremities Patient will complete upper body dressing SBA Start: 07/02/24 Expected End: 07/12/24 Dressings Lower Extremities Patient will dress lower body MIN A Start: 07/02/24 Expected End: 07/12/24 Mobility Patient will demonstrate functional mobility with FWW and SBA Start: 07/02/24 Expected End: 07/12/24 Therapeutic Exercise Pt will demo good participation in BUE exercises to increase endurance and strength for participation in ADL tasks. Start: 07/02/24 Expected End: 07/12/24 Toileting Patient will complete toileting tasks at bedside commode with SBA. Start: 07/02/24 Expected End: 07/12/24 Transfers Patient will complete functional transfer with rolling walker with SBA in order to prepare for ambulation. Start: 07/02/24 Expected End: 07/12/24 Patient will perform bed mobility with modified independence in order to improve independence and prepare for out of bed mobility. Start: 07/02/24 Expected End: 07/12/24 Therapy Time Individual Co-treatment Time In 1002 Time Out 1045 Minutes 43 Timed Code Treatment Minutes: 23 Minutes (TA x1, Ther Ex x1) Quinn Alcala OT Patient's Occupational Therapy Plan of Care supervision is transferred to a [facility] Occupational Therapist. Goals and/or treatment plan was established in collaboration with patient/family/other representatives. Images from the original note were not included. PHYSICAL THERAPY [facility] Initial Evaluation Name/MRN: Mikel Winston ([id number]) Evaluation Date: 07/02/2024 Date of : 1945 Admission Date: 06/25/2024 5:04 PM Age: 78 y.o. Room/Bed: B2-249/B2-249 A Discharge Recommendation: Jail Facility Equipment Needed: No Assessment IMPRESSION: Pt is a 78 y.o. female admitted 06/25 with AMS. Pt requires transfer to ICU with hepatic encephalopathy. Pt transferred out of ICU services 06/29. Pt found to have hepatic encephalopathy and UTI. CT head (-). Pt recently admitted to [facility] for pacemaker placement 05/31/2024. Pt was previously independent with functional mobility with rollator vs FWW. Pt is currently requiring min A for bed mobility, mod A for functional transfers, min A for lateral steps EOB. Pt is currently limited by weakness, fatigue and will benefit from acute skilled PT to address current deficits. Recommend SNF. Admitting Diagnosis: admitted 06/25 with AMS. Pt requires transfer to ICU with hepatic encephalopathy. Pt transferred out of ICU services 06/29. Pt found to have hepatic encephalopathy and UTI. CT head (-) Prognosis: good Performance Deficits /Impairments: Decreased Functional Mobility, Decreased Strength, Decreased Endurance, and Decreased Balance Decision Making: Medium Complexity Subjective Pt pleasant and agreeable to therapy session Per RN okay for therapy Pain: Pt denies any current pain. Past Medical History: Past Medical History: Diagnosis Date CAD (coronary artery disease) Cirrhosis of liver (HCC) Diabetes mellitus (HCC) Hypertension Osteoporosis Thyroid disease Past Surgical History: Past Surgical History: Procedure Laterality Date APPENDECTOMY CARDIAC ELECTROPHYSIOLOGY PROCEDURE N/A 05/31/2024 Performed by Pravin Poole MD at [facility] Cardiac Cath/EP Lab CHOLECYSTECTOMY CORONARY ARTERY BYPASS GRAFT TOTAL KNEE ARTHROPLASTY Right TUBAL LIGATION Admission Diagnosis: Patient Active Problem List Diagnosis Date Noted Angina at rest (HCC) 12/26/2017 Acute cystitis with hematuria 06/25/2024 Cellulitis of right lower extremity 01/28/2024 BARRY (acute kidney injury) ([facility]) 11/18/2022 UTI (urinary tract infection) 11/18/2022 Coronary artery disease involving coronary bypass graft of [place] heart without angina pectoris 09/30/2022 Nonrheumatic aortic valve stenosis 09/30/2022 Essential hypertension 09/30/2022 Dyslipidemia 09/30/2022 Generalized edema 01/27/2022 Diabetes (HCC) 01/27/2022 Symptomatic sinus bradycardia 05/29/2024 Medical Precautions: No active isolations Proper PPE donned/doffed in accordance with facility standards. Fall Risk: Jaramillo Fall Risk Score: 70 (Low Risk) Jaramillo Fall Risk Score: 70 (High Risk) Precautions/Restrictions: recent pacemaker- avoid heavy lifting Family/Caregiver Present: friends present at start of session, left for mobility. Overall Cognitive Status: WFL Overall Orientation Status: Oriented x4 Vision: not assessed this session Hearing: normal Social/Functional History Patient admitted from home. Lives With: Alone Type of Home: single family home Home Layout: Single Level Home Home Access: Level Entry Bathroom Shower/Tub: Tub/Shower Combo and Washes at sink/bed Toilet: Standard Home Equipment: cane Homemaking Responsibilities: Independent Receives Help From: None Active Sizing Sprayer: No Prior Level of Function Prior Level of ADL Function: Independent Prior Level of Mobility: Independent; Device: Front wheeled walker and Rollator Prior Level of Transfers: Independent Objective Lower Extremity Assessment AROM: WFL Strength: Exceptions: decreased in BLE noted with functional mobility Bed Mobility: Supine to sit: Min Assist Sit to supine: Min Assist Pt completes supine->sit requiring min A x1 to elevate trunk into upright sitting. Cues provided for sequencing task. Pt requires min A x1 to elevate BLE into bed. Increased time and effort required to complete. Transfers Sit to stand: Mod Assist Stand to sit: Mod Assist Pt completes sit<->stand from EOB to FWW requiring cues for hand placement and light UE assist LUE due to recent pacemaker. Pt requires mod A x1 to elevate and control descent. Ambulation Ambulation 1 Assistive device(s) used: Front wheeled walker Assist level: Min Assist Distance (ft): ~4 lateral steps EOB Quality of gait: step to pattern, shuffling, slow elba Pt completes few lateral steps EOB requiring min A x1 for general stability. Cues provided initially for sequencing with good carryover. Pt limited by fatigue. Cues for light LUE assist on FWW due to recent pacemaker. Balance During Session: Posture: fair Sitting - Static: SBA Sitting - Dynamic: SBA Standing - Static: Min Assist Standing - Dynamic: Min Assist Pt sits EOB requiring SBA with cues for core engagement and anterior weightshift for midline as pt demos retro lean in sitting. Once in standing, pt requires min A for anterior weightshift to maintain stand. Outcome Measures AM-PAC How much HELP from another person do you currently need Turning from your back to your side while in a flat bed without using bedrails?: A Little Moving from lying on your back to sitting on the side of a flat bed without using bedrails?: A Little Moving to and from a bed to a chair (including a wheelchair)?: A Lot Standing up from a chair using your arms (wheelchair or bedside chair)?: A Lot Walking in a hospital room?: Total Stair climbing assessed?: No AM-PAC Inpatient Mobility Raw Score (No Stairs) : 11 Plan Pt would benefit from skilled acute PT services to address Strengthening, Gait Training, Balance Training, Functional Mobility Training, Endurance Training, Safety Education and Training, Pain Management, Equipment Evaluation/Education, Patient/Caregiver Training, and Positioning. Frequency: 5 visits during current hospital admission or until additional recommendations are made Barriers: Impaired balance, Lower extremity weakness, Decreased endurance, Stairs at home, and lives alone Safety/Education Safety Safety Devices in place: All fall risk precautions in place, call light within reach, left in bed, gait belt, patient at risk for falls, nurse notified, and no alarms engaged upon entry Restraints: N/A Education Education Given To: patient Education Provided: PT Role, PT Goals, Gait Training, Plan of Care, Transfer Training, Equipment, Discharge Recommendations, and Benefits of Increasing Activity Education Method: Verbal and Demonstration Barriers to Learning: None Education Outcome: Verbalized Understanding, Demonstrated Understanding, and Continued Education Needed Goals Patient Stated Goal: Pt did not state Encounter Problems Encounter Problems (Active) Exercise Patient will complete lower extremity exercises for 1-2 sets / 5-10 reps in order to improve strength and activity tolerance for mobility. Start: 07/02/24 Expected End: 07/09/24 Mobility Patient will ambulate 75 feet with SBA and rolling walker in order to improve safety and independence with mobility. Start: 07/02/24 Expected End: 07/09/24 Transfers Patient will perform bed mobility with modified independence in order to improve independence and prepare for out of bed mobility. Start: 07/02/24 Expected End: 07/09/24 Patient will complete functional transfer with rolling walker with modified independence in order to prepare for ambulation. Start: 07/02/24 Expected End: 07/09/24 Therapy Time Individual Co-treatment Time In 1116 Time Out 1131 Minutes 15 Sadia Navarro PT Patient's Physical Therapy Plan of Care supervision is transferred to a [facility] Physical Therapist. Goals and/or treatment plan was established in collaboration with patient/family/other representatives. Hospitalist Progress Note 07/02/2024 Subjective: Admit Date: 06/25/2024 PCP: KOMAL COHN DO Room#: B2-249/B2-249 A BRIEF HOSPITAL COURSE: Mikel is a 78 y.o. female with past medical history significant for CAD, DM, HTN who was brought into the ER with altered mental status. Patient per family was fine until around this morning at 11am when she was talking to her daughter over the phone and the phone evidently dropped. Later in the afternoon daughter tried to get hold of her however there was no response. Subsequently around 3 PM granddaughter went over to the house and she found the patient to be slumped over in her chair and confused. Patient is normally independent and lives by herself. Patient was subsequently brought into the emergency room for further evaluation and treatment. There is no record of her having any fever chills shortness of breath no bowel movement or bladder issues. Admitted for acute metabolic encephalopathy due to hepatic encephalopathy. Rapid response called on 06/26 due to not responding to verbal stimuli. Transferred to ICU on 06/26. NG tube placed and started on lactulose with monitoring of ammonia levels. Patient was found to have a UTI and treated with IV ceftriaxone. Responded well with improvement in mentation. GI consulted and stated that altered mental status due to PSI, advised lactulose therapy and to titrate 2-3 soft BMs per day. Supportive care measures taken. Regarding GI bleed, advised to hold off on EGD and colonoscopy at this time since hemoglobin is stabilized and there is no overt bleeding. If hemoglobin does trend down, we will reconsider as an inpatient. Transferred out of the ICU to the service on 06/29. Currently awaiting placement to SNF Interval History: No overnight issues. Case and plan discussed with patient and bedside nurse. All questions answered. Adult diet Easy to Chew 24HR INTAKE/OUTPUT: Intake/Output Summary (Last 24 hours) at 07/02/2024 1206 Last data filed at 07/02/2024 0452 Gross per 24 hour Intake 4315 ml Output 1000 ml Net 3315 ml Past Medical History: Past Medical History: Diagnosis Date CAD (coronary artery disease) Cirrhosis of liver (HCC) Diabetes mellitus (HCC) Hypertension Osteoporosis Thyroid disease LABS: CBC: Recent Labs 06/30/24 0516 07/01/24 0327 07/02/24 0455 WBC 6.9 7.7 7.3 RBC 2.42* 2.51* 2.41* HGB 7.5* 7.9* 7.6* HCT 24.7* 25.8* 24.2* MCV 102.1* 102.8* 100.4* RDW 15.0 14.9 14.6 PLT 74* 86* 84* BMP: Recent Labs 06/30/24 0516 07/01/24 0327 07/02/24 0455 NA 142 140 135 K 3.5 3.7 3.9 CL 117* 113* 110* CO2 25 25 BUN 48* 37* 29* CREATININE 1.15* 1.18* 1.11* GLUCOSE 131* 143* 113* CALCIUM 8.4 8.1* 8.0* ANIONGAP 3 2* 0* LIVER PROFILE: Recent Labs 06/30/24 0516 07/01/24 0327 07/02/24 0455 AST 43 51* 50* ALT 24 28 29 BILITOT 0.8 0.7 0.8 ALKPHOS 81 93 89 PROT 5.0* 5.0* 5.0* PT/INR: No results for input(s): PROTIME, INR in the last 72 hours. CARDIAC ENZYMES: No results for input(s): TROPONINI in the last 72 hours. Procalcitonin: No results found for: PROCAL COVID-19 PCR: No results for input(s): COVID19 in the last 72 hours. Objective: Vitals: BP 146/65 (BP Location: Left arm, Patient Position: Lying) Pulse 88 Temp 36.9 C (98.4 F) (Temporal) Resp 18 Ht 5' 4 (1.626 m) SpO2 99% BMI 36.56 kg/m Pulse Ox: SpO2 Av.2 % Min: 96 % Max: 100 % Supplemental O2: O2 Flow Rate (L/min): 2 L/min Physical Exam Constitutional: Appearance: She is ill-appearing. Cardiovascular: Rate and Rhythm: Normal rate. Heart sounds: No murmur heard. Pulmonary: Effort: No respiratory distress. Breath sounds: No wheezing. Abdominal: General: There is no distension. Tenderness: There is no abdominal tenderness. Musculoskeletal: General: No swelling. Neurological: Mental Status: Mental status is at baseline. Medications: Scheduled PRN [Held by provider] aspirin, 81 mg, Oral, Daily cholecalciferol, 5,000 Units, Oral, Daily cyanocobalamin, 100 mcg, Oral, Daily ferrous sulfate, 325 mg, Oral, Daily with breakfast influenza, 0.5 mL, IntraMUSCular, Prior to discharge insulin lispro, 0-12 Units, SubCUTAneous, 4x daily AC & HS lactulose, 20 g, Oral, TID levothyroxine, 50 mcg, Oral, qAM AC linaGLIPtin, 5 mg, Oral, Daily pantoprazole, 40 mg, Oral, Nightly Or pantoprazole (ProtoNix) 40 mg in sodium chloride (PF) 0.9 % 10 mL injection, 40 mg, IntraVENous, Nightly Potassium Bicarb-Citric Acid, 30 mEq, Oral, Daily rosuvastatin, 20 mg, Oral, Daily sodium chloride 0.9%, 5-40 mL, IntraVENous, q12h PRN medications: acetaminophen OR acetaminophen, dextromethorphan-guaiFENesin, dextrose, dextrose, glucagon (rDNA), glucose, ipratropium-albuterol, labetalol, naloxone, ondansetron ODT OR ondansetron, oxyCODONE, polyethylene glycol (PEG) 3350, sodium chloride, sodium chloride, sodium chloride, sodium chloride, sodium chloride 0.9% Continuous sodium chloride, 50 mL/hr, Last Rate: 50 mL/hr (06/30/24 1555) Assessment Data: (CAT1) Reviewed 3 or more notes from different specialty or health system (each=1). (CAT1) Reviewed 3 or more labs/studies ordered by another provider not previously counted (each=1, panels count as 1). (CAT1) Reviewed 3 or more labs/studies previously ordered by me not previously counted (each=1, panels count as 1). (CAT1) Ordered 3 or more new labs and/or studies (each=1, panels count as 1). (LOW: 2x CAT1 or independent historian MOD: 3x CAT1 or 1x CAT3 EXTENSIVE: 3x CAT1 and 1x CAT3) Acute, acute on chronic, unstable/uncontrolled chronic problems/diagnoses: Acute metabolic encephalopathy likely due to hepatic encephalopathy E. coli UTI Suspected GI bleed Acute hypernatremia BARRY on CKD Elevated troponin due to demand ischemia Mild malnutrition Stable chronic problems affecting care, new non-acute diagnoses: HTN HLD CAD History of second-degree AV block with PPM Moderate aortic stenosis History of liver cirrhosis Class III obesity Plan As a result of the above findings & factors, the following mgmt was pursued: -Patient medically stable at this time. Will discontinue antibiotics as today is day 8. Plan is to go to [facility] SNF - Discontinue palmer - Discussed with nursing - am labs, replace lytes prn - PT/OT/CM/SW - delirium precautions: increase activity - DVT prophylaxis: SCDs and encourage ambulation Complexity: Acute illness or injury posing a threat to life or body function (HIGH). Risk: Admission to hospital-level care was considered or occurred (HIGH). Advance Directive: DNR-CCA Anticipated Discharge - Date - 07/03 - Location - Skilled Facility - Pending the following -stable, SNF auth Total time spent (which include face to face and non face to face encounters) : 55 minutes Toxic drug monitoring/narrow therapeutic index drug monitoring : # Drug name : NA # Route administered : NA # Method of monitoring : NA Extended Emergency Contact Information Primary Emergency Contact: Arnel Forte Mobile Relation: Child Secondary Emergency Contact: RavindraRussell Mobile Relation: Child Joni Gutierrez MD Division of Hospitalist Medicine [facility] Spiritual Care Note [facility] Palliative Care Patient Name:Mikel Winston Chief Complaint: Chief Complaint Patient presents with Altered Mental Status Complaint of altered mental status and weakness that started several days ago. Patient is confused at this time and very tired. Patient is able to be aroused with voice. Patient denies pain at this time Reason for visit: Initial Visit Services Provided To: Clergy and patient and family Background and visit note: Introduced myself and pastoral care to patient and people surrounding her. Her cellar hand was visiting with them. Follow up PRN. Is there spiritual distress? Unknown Comment: Interventions: Establish rapport . Care Plan: Care plan PRN . Follow Up: PRN. Debriefed: with cyber defense forensics analyst team. Mellissa Vega 07/02/24 Images from the original note were not included. Speech-Language Pathology SPEECH LANGUAGE PATHOLOGY [facility] Dysphagia Treatment Note Patient Name: Mikel Winston Evaluation Date: 07/02/2024 Date of : 1945 Admission Date: 06/25/2024 5:04 PM Age: 78 y.o. Room/Bed: B2-249/B2-249 A Subjective Patient alert and cooperative. Seen upright in bed. Answers all basic questions with clear vocal quality. Follows all basic commands. No visitors at bedside. Spoke with JANES Hawthorne who cleared pt for treatment. Current Diet: Dietary Orders (From admission, onward) Start Ordered 06/29/24 1607 Adult diet Easy to Chew Diet effective now Comments: Easy to chew solids and Thin liquids and meds whole in puree Question: Diet type Answer: Easy to Chew 06/29/24 1606 Oxygen: Oxygen Therapy: None (Room air) Pt with fluent and prompt speech. Pain: Pt denies any current pain. Discomfort in her hands. PPE Worn: gloves Objective & Assessment Dysphagia Treatment Dysphagia Activity 1: assess diet tolerance and use of swallow strategies Pt with continued improvement in level of alertness. Pt with coherent conversation of current deficits. Improved self feeding, however she does continue with serial straw drinking. This date without cough response. Mastication is timely with functional oral clearing of eggs (peppers/onions), oats, and drinks of apple juice. Pt without desire for advanced diet at this time. She is comfortable with easy to chew diet until continued improvement. Plan & Recommendations Plan: Advanced diet trials with next session of regular/thin. Recommend Easy to chew solids and Thin liquids and meds whole in puree and the following precautions: Assist with set up and additional help PRN - Upright positioning for all PO intake - Slow rate of intake - Small bites/sips - Alternate solid and liquids D/C Recommendations: to be determined Education Education Given: swallowing strategies, current level of progress Given To: patient Response: verbalizes understanding Goals Patient Stated Goal: To get back to washing clothes, dishes and doing the stuff I used to do. Encounter Problems Encounter Problems (Active) Swallowing Patient will tolerate the least restrictive diet consistency to allow for safe consumption of daily meals (Progressing) Start: 06/29/24 Expected End: 07/13/24 Patient will demonstrate safe swallowing Intervention/techniques (Progressing) Start: 06/29/24 Expected End: 07/13/24 Patient will tolerate recommended food and liquid consistencies without clinical signs and symptoms of aspirations (Progressing) Start: 06/29/24 Expected End: 07/13/24 Therapy Time INTERNET RETAILER Individual Minutes Time In: 08 Time Out: 0910 Minutes: 18 GUILLERMO Keyes Hospitalist Progress Note 07/01/2024 Subjective: Admit Date: 06/25/2024 PCP: KOMAL COHN DO Room#: B2-249/B2-249 A BRIEF HOSPITAL COURSE: Mikel is a 78 y.o. female with past medical history significant for CAD, DM, HTN who was brought into the ER with altered mental status. Patient per family was fine until around this morning at 11am when she was talking to her daughter over the phone and the phone evidently dropped. Later in the afternoon daughter tried to get hold of her however there was no response. Subsequently around 3 PM granddaughter went over to the house and she found the patient to be slumped over in her chair and confused. Patient is normally independent and lives by herself. Patient was subsequently brought into the emergency room for further evaluation and treatment. There is no record of her having any fever chills shortness of breath no bowel movement or bladder issues. Interval History: No overnight issues. Feels better. Mentation improved and back to baseline. Case and plan discussed with patient and bedside nurse. All questions answered. Adult diet Easy to Chew 24HR INTAKE/OUTPUT: Intake/Output Summary (Last 24 hours) at 07/01/2024 1200 Last data filed at 07/01/2024 0049 Gross per 24 hour Intake 2448 ml Output 750 ml Net 1698 ml Past Medical History: Past Medical History: Diagnosis Date CAD (coronary artery disease) Cirrhosis of liver (HCC) Diabetes mellitus (HCC) Hypertension Osteoporosis Thyroid disease LABS: CBC: Recent Labs 06/29/24 0402 06/30/24 0516 07/01/24 0327 WBC 9.4 6.9 7.7 RBC 2.96* 2.42* 2.51* HGB 9.3* 7.5* 7.9* HCT 30.0* 24.7* 25.8* MCV 101.4* 102.1* 102.8* RDW 15.3* 15.0 14.9 PLT 95* 74* 86* BMP: Recent Labs 06/29/24 0402 06/30/24 0516 07/01/24 0327 NA 145 142 140 K 3.7 3.5 3.7 CL 120* 117* 113* CO2 21* 23 25 BUN 51* 48* 37* CREATININE 1.25* 1.15* 1.18* GLUCOSE 190* 131* 143* CALCIUM 9.0 8.4 8.1* ANIONGAP 4 3 2* LIVER PROFILE: Recent Labs 06/29/24 0402 06/30/24 0516 07/01/24 0327 AST 53* 43 51* ALT 26 24 28 BILITOT 0.9 0.8 0.7 ALKPHOS 123 81 93 PROT 5.8* 5.0* 5.0* PT/INR: No results for input(s): PROTIME, INR in the last 72 hours. CARDIAC ENZYMES: No results for input(s): TROPONINI in the last 72 hours. Procalcitonin: No results found for: PROCAL COVID-19 PCR: No results for input(s): COVID19 in the last 72 hours. Objective: Vitals: BP (!) 162/68 (BP Location: Left arm, Patient Position: Sitting) Pulse 84 Temp 36 C (96.8 F) (Temporal) Resp 19 Ht 5' 4 (1.626 m) SpO2 100% BMI 36.56 kg/m Pulse Ox: SpO2 Av.7 % Min: 94 % Max: 100 % Supplemental O2: O2 Flow Rate (L/min): 2 L/min Physical Exam Constitutional: Appearance: She is ill-appearing. Cardiovascular: Rate and Rhythm: Normal rate. Heart sounds: No murmur heard. Pulmonary: Effort: No respiratory distress. Breath sounds: No wheezing. Abdominal: General: There is no distension. Tenderness: There is no abdominal tenderness. Musculoskeletal: General: No swelling. Neurological: Mental Status: Mental status is at baseline. Medications: Scheduled PRN [Held by provider] aspirin, 81 mg, Oral, Daily cefTRIAXone, 1,000 mg, IntraVENous, q24h cholecalciferol, 5,000 Units, Oral, Daily cyanocobalamin, 100 mcg, Oral, Daily ferrous sulfate, 325 mg, Oral, Daily with breakfast influenza, 0.5 mL, IntraMUSCular, Prior to discharge insulin lispro, 0-12 Units, SubCUTAneous, 4x daily AC & HS lactulose, 20 g, Oral, TID levothyroxine, 50 mcg, Oral, qAM AC linaGLIPtin, 5 mg, Oral, Daily mupirocin, , Topical, BID pantoprazole, 40 mg, Oral, Nightly Or pantoprazole (ProtoNix) 40 mg in sodium chloride (PF) 0.9 % 10 mL injection, 40 mg, IntraVENous, Nightly Potassium Bicarb-Citric Acid, 30 mEq, Oral, Daily rosuvastatin, 20 mg, Oral, Daily sodium chloride 0.9%, 5-40 mL, IntraVENous, q12h PRN medications: acetaminophen OR acetaminophen, dextromethorphan-guaiFENesin, dextrose, dextrose, glucagon (rDNA), glucose, ipratropium-albuterol, labetalol, ondansetron ODT OR ondansetron, polyethylene glycol (PEG) 3350, sodium chloride, sodium chloride, sodium chloride, sodium chloride, sodium chloride 0.9% Continuous sodium chloride, 50 mL/hr, Last Rate: 50 mL/hr (06/30/24 1555) Assessment Data: (CAT1) Reviewed 3 or more notes from different specialty or health system (each=1). (CAT1) Reviewed 3 or more labs/studies ordered by another provider not previously counted (each=1, panels count as 1). (CAT1) Reviewed 3 or more labs/studies previously ordered by me not previously counted (each=1, panels count as 1). (CAT1) Ordered 3 or more new labs and/or studies (each=1, panels count as 1). (LOW: 2x CAT1 or independent historian MOD: 3x CAT1 or 1x CAT3 EXTENSIVE: 3x CAT1 and 1x CAT3) Acute, acute on chronic, unstable/uncontrolled chronic problems/diagnoses: Acute metabolic encephalopathy likely due to hepatic encephalopathy E. coli UTI Suspected GI bleed Acute hypernatremia BARRY on CKD Elevated troponin due to demand ischemia Stable chronic problems affecting care, new non-acute diagnoses: HTN HLD CAD History of second-degree AV block with PPM Moderate aortic stenosis History of liver cirrhosis Class III obesity Plan As a result of the above findings & factors, the following mgmt was pursued: -Transfer out of the ICU. GI following and states that altered mental status due to PSI on lactulose. Titrate 2-3 soft BMs per day. Supportive care measures. Regarding GI bleed, will hold off on EGD and colonoscopy at this time since hemoglobin is stabilized and there is no overt bleeding. If hemoglobin does trend down, we will reconsider as an inpatient -Patient complains of symptoms of cough, will check respiratory infectious workup. Remains on room air. Continue on ceftriaxone therapy for UTI treatment - Discussed with nurse and TCC during IDR's this morning - am labs, replace lytes prn - PT/OT/CM/SW - delirium precautions: increase activity - DVT prophylaxis: SCDs and encourage ambulation Complexity: Acute illness or injury posing a threat to life or body function (HIGH). Risk: Admission to hospital-level care was considered or occurred (HIGH). Advance Directive: DNR-CCA Anticipated Discharge - Date - 07/02-07/03 - Location - LTAC - Pending the following - Sx, mentation Total time spent (which include face to face and non face to face encounters) : 54 minutes Toxic drug monitoring/narrow therapeutic index drug monitoring : # Drug name : NA # Route administered : NA # Method of monitoring : NA Extended Emergency Contact Information Primary Emergency Contact: Alfie Fortea Mobile Relation: Child Secondary Emergency Contact: Russell Winston Mobile Relation: Child Joni Gutierrez MD Division of Hospitalist Medicine [facility] Images from the original note were not included. Speech-Language Pathology SPEECH LANGUAGE PATHOLOGY [facility] Dysphagia Treatment Note Patient Name: Mikel Winston Evaluation Date: 06/30/2024 Date of : 1945 Admission Date: 06/25/2024 5:04 PM Age: 78 y.o. Room/Bed: B2-249/B2-249 A Subjective Patient alert and cooperative. Seen upright in bed. Answers all basic questions with clear vocal quality. Follows all basic commands. Visitors at bedside daughter . Spoke with JANES Hawthorne who cleared pt for treatment. Current Diet: Dietary Orders (From admission, onward) Start Ordered 06/29/24 1607 Adult diet Easy to Chew Diet effective now Comments: Easy to chew solids and Thin liquids and meds whole in puree Question: Diet type Answer: Easy to Chew 06/29/24 1606 Aspiration Precautions: - Upright positioning for all PO intake - Slow rate of intake - Single small bites/sips - 1:1 Assistance - PO only when fully alert - Alternate solid and liquids Oxygen: Oxygen Therapy: None (Room air) O2 Delivery Method: Nasal cannula O2 Flow Rate (L/min): 2 L/min Pain: Pt denies any current pain. PPE Worn: gloves Objective & Assessment Dysphagia Treatment # of Activities: 1 Dysphagia Activity 1: assess diet tolerance and use of swallow strategies Activity 1 Comment: Pt was alert and seated in bed. She was seen taking medications crushed in puree for bedside nurse and tolerated without dificulty. Pt also seen with portion of breakfast meal. Current diet is ETC/thin liquids. Daughter present at the bedside to assist pt with feeding. INTERNET RETAILER reviewed diet and swallow strategies. Moderate - max cues provided for sinlge drinks. Pt consistnetly wanting to take consecutive drinks from straw. Coughing was noted x 2 due to same. Mastication of soft solids was adequate with mild oral residue noted that cleared with liquid wash. Recommend to continue current diet and swallow strategies. will follow for diet tolerance. Plan & Recommendations Plan: ETC / thin liquid diet with use of established swallow strategies Continue acute INTERNET RETAILER therapy per initial plan of care and established goals. Recommend Easy to chew solids and Thin liquids and meds crushed in puree and the following precautions: - Upright positioning for all PO intake - Slow rate of intake - SINGLE Small bites/sips - 1:1 Assistance - Alternate solid and liquids D/C Recommendations: to be determined Education Education Given: role of therapy, swallowing strategies, diet recommendations Given To: patient and daughter Response: verbalizes understanding, needs reinforcement Goals Patient Stated Goal: did not state Encounter Problems Encounter Problems (Active) Swallowing Patient will tolerate the least restrictive diet consistency to allow for safe consumption of daily meals (Progressing) Start: 06/29/24 Expected End: 07/13/24 Patient will demonstrate safe swallowing Intervention/techniques (Progressing) Start: 06/29/24 Expected End: 07/13/24 Patient will tolerate recommended food and liquid consistencies without clinical signs and symptoms of aspirations (Progressing) Start: 06/29/24 Expected End: 07/13/24 Therapy Time INTERNET RETAILER Individual Minutes Time In: 935 Time Out: 0955 Minutes: 19 GUILLERMO Monet [facility] Attending GI Progress Note SUBJECTIVE: No events overnight. Family at bedside. Improvement in mental status. Tolerating tube feeds. Lactulose through NG tube. + Bowel movement. No overt bleeding overnight. Hemoglobin has been stable Medications @[email or web address]@ OBJECTIVE VITALS: BP 156/69 (BP Location: Right arm, Patient Position: Sitting) Pulse 85 Temp 36.5 C (97.7 F) (Temporal) Resp 18 Ht 5' 4 (1.626 m) SpO2 100% BMI 36.56 kg/m TEMPERATURE: Current - Temp: 36.5 C (97.7 F); Max - Temp Av.8 C (98.2 F) Min: 36.3 C (97.4 F) Max: 37.4 C (99.3 F) RESPIRATIONS RANGE: Resp Av.5 Min: 14 Max: 21 PULSE RANGE: Pulse Av Min: 80 Max: 113 BLOOD PRESSURE RANGE: Systolic (24hrs), Av , Min:126 , Max:171 ; Diastolic (24hrs), Av, Min:59, Max:79 PULSE OXIMETRY RANGE: SpO2 Av.1 % Min: 98 % Max: 100 % 24HR INTAKE/OUTPUT: Intake/Output Summary (Last 24 hours) at 06/29/2024 1523 Last data filed at 06/29/2024 1141 Gross per 24 hour Intake 1616 ml Output 2245 ml Net -629 ml GENERAL: obtunded, NG in place HEENT: NCAT, PERRLA, EOMI, Scleral anicteric. Oropharhynx clear with no erythema or exudate. Neck supple, no cervical LAD or thyromegaly. CV: RRR, NL S1/S2, no murmurs. Distal pulses palpable and equal b/l. LUNGS: CTA b/l. Normal percussion and palpation. No W/R/R. ABD: + BS, soft, non-tender and non-distended. No hepatosplenomegaly. No mass felt. No rebound or guarding. EXT: No C/C/E. No muscle atrophy. SKIN: No skin lesion or breakdown. NEURO: responds to pain. Data Recent blood work, radiologic study and endoscopic study were reviewed with the patient. CBC: Recent Labs 06/28/24 0454 06/28/24 1224 06/28/24 1810 06/28/24 2338 06/29/24 0402 WBC 11.1* -- -- -- 9.4 HGB 8.8* < > 9.0* 8.5* 9.3* HCT 28.0* < > 28.6* 27.4* 30.0* PLT 105* -- -- -- 95* < > = values in this interval not displayed. HEPATIC: Recent Labs 06/28/24 0454 06/29/24 0402 AST 51* 53* ALT 24 26 BILITOT 0.9 0.9 ALKPHOS 85 123 LIPASE/AMYLASE: No results for input(s): AMYLASE, LIPASE in the last 72 hours. LACTATE: No lab exists for component: LACTA BNP: No results for input(s): BNP in the last 72 hours. INR: No results for input(s): INR in the last 72 hours. ASSESSMENT AND PLAN 1. AMS - ?PSE. on lactulose. Titrate to 2-3 soft bowel movements per day. UTI being treated. patient is more alert today and has definite improvement in mental status. -Continue lactulose -Supportive therapies per primary service 2. GIB - see abve, hbg stable, getting tf. Hold off on EGD/colonoscopy at this time since hemoglobin has stabilized and no overt bleeding. If hemoglobin begins to trend down or there is overt bleeding may reconsider at that time. -Monitor hemoglobin -PPI -Speech therapy still working with patient and recommending easy to chew solids and thin liquids 3. MASLD - labs stable, no prior work up, lft nl. Consider serologies once stable, or if lft increase -Paracentesis as needed -If reaccumulating fluids consider diuretics and titrate as needed GI will follow peripherally. Please feel free to reach out with any questions or concerns. Otherwise patient can follow-up in the GI clinic after discharge for further long-term evaluation and management of liver disease Thank you for allowing the GI service to be part of this patient's care. When the patient is discharged if she needs to follow up with GI please refer him to [facility] office ( ) which is the office of Kriss Mccray, Clare, and Arpan. Images from the original note were not included. Speech-Language Pathology SPEECH LANGUAGE PATHOLOGY [facility] Bedside Swallow Evaluation Patient Name: Mikel Winston Evaluation Date: 06/29/2024 Date of : 1945 Admission Date: 06/25/2024 5:04 PM Age: 78 y.o. Room[facility]Bed: [facility] A IMPRESSION: S/s oropharyngeal dysphagia. Intermittent overt clinical s/s pulmonary compromise with PO. Risk factors for aspiration include altered CHEKO, . RECOMMENDATION: Recommend Easy to chew solids and Thin liquids and meds whole in puree and the following precautions: - Upright positioning for all PO intake - Slow rate of intake - Single small bites/sips - 1:1 Assistance - PO only when fully alert - Alternate solid and liquids Discontinue if overt deficits of airway compromise. Dysphagia NOMS: Level 6: Swallowing is safe, and individual eats and drinks independently and requires no more than minimal cueing. Individual usually self-cues when difficulty occurs. May need to avoid specific food items (e.g., popcorn) or require additional time (due to difficulty with mastication). Pt would benefit from skilled acute INTERNET RETAILER services to address further assessment of prandial tolerance, determine need for modification of diet. Frequency: 3 days/wk for 2 weeks Barriers: Limited insight into deficits Prognosis: good D/C Recommendations: to be determined Subjective Patient alert, confused and cooperative. Seen upright in bed. Answers some basic questions with weak vocal quality. Follows all basic commands. Visitors at bedside - brother Tyler. I had a diabetic infection before. Where is Edgar? Spoke with JANES Morgan who cleared pt to be evaluated. Dysphagia History: No history of INTERNET RETAILER services in EMR with retrospective chart review Baseline Diet: Regular diet per pt. Current Diet: Dietary Orders (From admission, onward) Start Ordered 06/27/24 0509 Diet, tube feeding no tray Nasogastric; Glucerna 1.5 Roe; Continuous; Yes; 10; Q 8 Hours; 10; 40 (SH IP DIET TUBE FEEDING NO TRAY PANEL) Diet effective now Question Answer Comment Route: Nasogastric Formula: Glucerna 1.5 Roe Delivery Method: Continuous Continuous Advance Tube Feeding? Yes Advancement Volume (mL/hr) 10 Advancement Frequency: Q 8 Hours Continuous Initial Rate (Recommended mL/hr) 10 Continuous Goal Rate (Recommended mL/hr) 40 Placed in And Linked Group 06/27/24 0508 Tube Feeding: yes, Glucerna and meds. Tracheostomy: no Recent Chest Xray/CT of Chest: XR chest 1 view 06/26/2024 Impression FINDINGS/IMPRESSION: Limitations: Patient positioning/rotation Lines, tubes, and devices: NG tube with its tip coursing beneath the left hemidiaphragm located on the stomach as seen on abdominal radiographs. Unchanged left-sided pacemaker device. Cardiomediastinal silhouette: Unchanged in appearance Lungs/Pleura: Pulmonary vascular congestion similar to slightly improved. No sizable pleural effusions. No pneumothorax. Osseous structures: Unchanged in appearance. Soft tissues: No soft tissue abnormality is detected. Report Dictated on Electronically Signed By: Paul Garcia MD Electronically Signed Date/Time: 06/26/2024 2:17 PM EST Oxygen: Oxygen Therapy: None (Room air) Past Medical History: Past Medical History: Diagnosis Date CAD (coronary artery disease) Cirrhosis of liver (HCC) Diabetes mellitus (HCC) Hypertension Osteoporosis Thyroid disease Past Surgical History: Past Surgical History: Procedure Laterality Date APPENDECTOMY CARDIAC ELECTROPHYSIOLOGY PROCEDURE N/A 05/31/2024 Performed by Pravin Poole MD at [facility] Cardiac Cath/EP Lab CHOLECYSTECTOMY CORONARY ARTERY BYPASS GRAFT TOTAL KNEE ARTHROPLASTY Right TUBAL LIGATION Admission Diagnosis: Patient Active Problem List Diagnosis Date Noted Angina at rest ([facility]) 12/26/2017 Acute cystitis with hematuria 06/25/2024 Cellulitis of right lower extremity 01/28/2024 BARRY (acute kidney injury) ([facility]) 11/18/2022 UTI (urinary tract infection) 11/18/2022 Coronary artery disease involving coronary bypass graft of [place] heart without angina pectoris 09/30/2022 Nonrheumatic aortic valve stenosis 09/30/2022 Essential hypertension 09/30/2022 Dyslipidemia 09/30/2022 Generalized edema 01/27/2022 Diabetes (HCC) 01/27/2022 Symptomatic sinus bradycardia 05/29/2024 History of Present Illness: 78 y.o. that presents to the emergency department for evaluation of being altered. Family states that patient is confused. On evaluation patient only answers the word Mikel to any question that she is asked. Family states they spoke to her around 11 AM at that time she was complaining of nausea and diarrhea. When they called patient back around 2 PM she did not answer the phone. They went over to the house around 3 PM in the family found her slumped over in a chair. Family notes that she recently has had an episode of rectal bleeding. Focused exam: Patient is awake but only oriented to her name. She does fall asleep during history and exam but awakens easily with loud voice. No signs of head trauma. Pupils equal and reactive. Lungs clear to auscultation bilaterally. Heart regular rate and rhythm. Abdomen soft nondistended without focal tenderness rebound or guarding. Extremities without any obvious tenderness. Patient Complaint: pt complains of dry mouth Pain: Pt denies any current pain. Complains that she can't move her arms. PPE Worn: gloves Objective Bedside swallow eval completed. Oral Motor Mechanism Generalized weakness. ROM is WFL. Dyskinesia. +palatal elevation. Overall generalized weakness. Oral Hygiene: dried secretions, xerostomia Swallowing Examination PO Trials - ice chips, (teaspoon) - thin liquid, (cup edge, straw, fed by clinician) - puree, (teaspoon, fed by clinician) - regular solids Oral Phase Pt with adequate oral receipt of PO trials. Min, when pulled straw out too quickly anterior spillage. Mastication with neema cracker appeared prolonged. Oral transit time appears prolonged. Min oral residue. Additional Observations: allow extra time to swallow and re-swallow to clear residuals. CUE single sips. +throat clearing with larger cup drinks. Pt reports coughing with po at home. No GERD in history. Pt unable to clarify some questions. She was living alone. Pharyngeal Phase Hyolaryngeal excursion clinically appears adequate and timely, appears per palpation. 1-3 swallows palpated per bolus, likely indicative of adequate pharyngeal clearance. Overt clinical s/s pulmonary compromise with Thin liquids as evidenced by delayed throat clear. Additional Observations: single drinks improve throat clearing. Limited bolus size and slower rate appears to improve possible residuals. Pt reports throat clearing when eating at home. No documented h/o GERD. Education Education Given: swallowing strategies, diet recommendations, need for help, orientation Given To: patient Response: needs reinforcement Goals Patient Stated Goal: To get the tube out. Encounter Problems Encounter Problems (Active) Swallowing Patient will tolerate the least restrictive diet consistency to allow for safe consumption of daily meals Start: 06/29/24 Expected End: 07/13/24 Patient will demonstrate safe swallowing Intervention/techniques Start: 06/29/24 Expected End: 07/13/24 Patient will tolerate recommended food and liquid consistencies without clinical signs and symptoms of aspirations Start: 06/29/24 Expected End: 07/13/24 Therapy Time INTERNET RETAILER Individual Minutes Time In: 1430 Time Out: 1445 Minutes: 15 GUILLERMO Keyes Nutrition Assessment Type and Reason for Visit: Reassess Nutrition Recommendations/Plan: NG remains in place, with enteral nutrition at goal, patient tolerating without GI distress. Glucerna 1.5 @ 40 mL/hr will provide: 1440 kcal, 79 g protein, 728 mL free fluid --> 26 kcal and 1.4 g protein/kg IBW(55 kg) Pending INTERNET RETAILER evaluation, ADAT per their recommendations As able, please obtain weekly standing scale weights for most accurate anthropometric data and calculation of macronutrient and fluid needs RDN to continue to monitor weekly: fluid accumulation, weight, skin integrity, trends in lab values, tolerance of PO, clinical status, discharge planning. 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 Initially admitted to [facility], then transferred to ICU morning of 06/26 with decrease in mentation and maroon stools. NG placed for lactulose administration (Ammonia profoundly elevated). +EColi UTI, continues on IV ceftriaxone. GI consulted, trending Hgb (8.8->8.9->9.0->8.5->9.3) and no plans for acute interventions at this time. EN to goal on morning of 06/28. Resting in bed with family at bedside, EN continue to goal. Much improvement in mentaion today, NFPE compelted with patient consent. Good PO POINT OF SALE ASSOCIATE and prior to acute illness. Pending INTERNET RETAILER eval Estimated Daily Nutrient Needs: Energy Requirements Based On: Kcal/kg Weight Used for Energy Requirements: [place] Weight for Energy Calculation (kg): 55 kg Total Energy Requirements (kcals/day): 9118-6029 (25-30 kcal/kg IBW) Weight Used for Protein Requirements: [place] Weight in Kg Used for Protein Requirements: 55 kg Estimated Total Protein (g/day): 55-83 (1.0-1.5 g protein/kg IBW) Estimated Daily Total Fluid (ml/day): per MD Nutrition Related Findings: +I/O balance. Stanislav score=12. +Nonpitting BLE Edema noted. Meds and labs reviewed. EN to goal on 06/28. +lactulose and IVF Wound Type: None Current Nutrition Therapies: Diet, tube feeding no tray Nasogastric; Glucerna 1.5 Roe; Continuous; Yes; 10; Q 8 Hours; 10; 40 (and additional linked orders) Current Oral Intake Average Meal Intake: NPO Average Supplements Intake: NPO Enteral Nutrition Feeding Route: Nasogastric EN Formula: Glucerna 1.5 Roe EN Schedule: Continuous EN Feeding Regimen: Glucerna 1.5 @ 40 mL/hr Additives/Modulars: None Water Flushes: 200 mL Q4H Current EN & Flush Order Provides: Glucerna 1.5 @ 40 mL/hr will provide: 1440 kcal, 79 g protein, 728 mL free fluid --> 26 kcal and 1.4 g protein/kg IBW(55 kg) Goal EN & Flush Order Provides: Glucerna 1.5 @ 40 mL/hr will provide: 1440 kcal, 79 g protein, 728 mL free fluid --> 26 kcal and 1.4 g protein/kg IBW(55 kg) Anthropometric Measures: Height: 162.6 cm (5' 4) Current Body Weight: 90.7 kg (200 lb) Weight Source: Bed Scale Admission Body Weight: (NA) Usual Body Weight: 88.9 kg (196 lb) (Per EMR--> 200# 06/27/23; 209# 12/07/23; 206# 01/06/24; 196# 03/16/24; 198# 04/27/24; 190# 06/11/24) % Weight Change (Calculated): 2 [place] Body Weight (lbs) (Calculated): 120 lbs [place] Body Weight (Kg) (Calculated): 55 kg % [place] Body Weight (Calculated): 166.7 % BMI (kg/m2) (Calculated): 34.3 Weight Adjustment For: No Adjustment BMI Categories: Obese Class 1 (BMI 30.0-34.9) Nutrition Diagnosis: Altered GI function related to cognitive or neurological impairment as evidenced by NPO or clear liquid status due to medical condition, nutrition support - enteral nutrition Altered nutrition-related lab values related to renal dysfunction, endocrine dysfuntion as evidenced by lab values Nutrition Interventions: Nutrition Education/Counseling: Education not indicated Coordination of Nutrition Care: Speech Therapy, Swallow Evaluation Plan of Care discussed with: Patient and family, RN. multidisciplinary rounds Goals: Previous Goal Met: Progressing toward Goal(s) Goals: Initiate PO diet, Tolerate nutrition support at goal rate, by next RD assessment Nutrition Monitoring and Evaluation: Behavioral-Environmental Outcomes: None Identified Food/Nutrient Intake Outcomes: Diet Advancement/Tolerance, Enteral Nutrition Intake/Tolerance Physical Signs/Symptoms Outcomes: Biochemical Data, Chewing or Swallowing, GI Status, Nausea or Vomiting, Skin, Weight, Nutrition Focused Physical Findings, Hemodynamic Status, Fluid Status or Edema Discharge Planning: Too soon to determine Crissy Denis RDN, LDN, Contact: [phone] Patient is individual with hx of SBP secondary to cirrhosis, coronary artery disease, type 2 diabetes, hypertension, presented to the ED with altered mental status. Requiring Lactulose by NG tube - mentation improved and she will be transferred to the floor. Yumiko Villasenor MD Division of Hospitalist Medicine [facility] Images from the original note were not included. Palliative Care Progress Note Chief Complaint: Mikel Winston is a 78 y.o. female with chief complaint of altered mental status Palliative care consulted for goals of care Palliative Care is actively following Assessment/Plan Goals of care - patient seen this morning, patient was awake, alert, oriented X2-3 - met with daughter in law at bedside - patient and family's goal at this time is to get better - Code status remains DNRCCA - provided empathetic listening and emotional support to patient and family - updated ICU attending Dr. Stringer - will continue to have ongoing goals of care conversations with family Acute encephalopathy - multifactorial likely due to combination of hepatic encephalopathy, UTI - mental status improving, patient AxOx2-3 today Dysphagia - cleared by INTERNET RETAILER for adult easy to chew food GI Bleeding - patient seen by GI services on 06/27, per notes follow Hb and transfuse, continue PPI BID E Coli UTI - remains on IV rocephin BARRY on CKD 3 - resolving - creatinine 1.40 on admission, today 1. 25 - remains on IV fluids Cirrhosis of the liver - on admission ammonia was 134, today < 9 Second degree HB s/p PPM Palliative Care Encounter - will continue to follow for ongoing monitoring of progression of Dyspnea, Pain, and Constipation as well as for appropriateness for hospice care due to Dysphagia - will continue to evaluate test results related to Dysphagia, medication effectiveness for Dyspnea, Pain, and Constipation, response to treatment of Dysphagia - obtaining testing as needed to monitor medication results:N/A Total of 65 minutes spent on this encounter including Chart review, Patient visit and exam, Documentation in EHR, Care coordination, and Communicating with primary attending or other consultants. Discharge planning: Not ready for discharge due to ongoing goals of care discussion Patient meets criteria for general inpatient hospice care including the following: N/A - Palliative Care Patient Referrals to: None Discussed patient and the plan of care with the other interdisciplinary team (IDT) members of Palliative Care Team, and with Primary Attending, Patient, and Family Insert attestation statement here if applicable (.disupervision) or (.npattest) Subjective: Subjective/Events Mikel Winston is a 78 y.o. female admitted to [facility] on 06/25 for altered mental status. Patient seen and examined this morning. Patient's mental status improving, was AxOx-2- 3 today. Patient's daughter in law at bedside. Patient seen by INTERNET RETAILER, started on easy to chew diet. NG removed. Patient denied any complains when seen. Goals of care:Improve or Maintain Function/Quality of Life Functional Assessment: PPS: 40% Advance Directives: DNR-CCA Surrogate: HCPOA Prognosis: depends upon goals Spiritual assessment: No spiritual distress identified Bereavement and grief: Low Risk Bereavement Review of Systems ROS: See palliative care ROS/ESAS below; Detail ROS unable to be obtained due to patient's mental status [place] Symptom Assessment Score [place] Score Pain Score 0 Tiredness Score 6 Nausea Score 0 Depression Score 0 Anxiety Score 0 Drowsiness Score 4 Anorexia Score (0= eating well, 10= not eating) 6 Wellbeing Score (10= worst sense of well-being) 6 Constipation 0 Dyspnea Score (0= no shortness of breath) 0 FLACC Scale (For Pain Assessment of the Non-Verbal Patient) Denied pain Assessed by: provider. Social history: eteran status: no Marital status: Living status: alone Work history: retired, worked in [employer] Family Meeting: (if discussing Advanced Care Planning, include .ACPDOCUMENTATION) Participants: extended family Family meeting was held to discuss:Diagnosis and Prognosis, Goals of Care, Treatment Options, Symptom Management, Advanced Care Planning, and Prior Expressed Wishes Objective: Physical Exam BP (!) 168/77 Pulse 103 Temp 36.9 C (98.4 F) (Axillary) Resp 18 Ht 5' 4 (1.626 m) SpO2 100% BMI 36.56 kg/m Constitutional: Appearance: She is ill-appearing. HENT: Head: Normocephalic and atraumatic. Right Ear: External ear normal. Left Ear: External ear normal. Nose: Nose normal. Mouth/Throat: Mouth: Mucous membranes are moist. Eyes: General: Right eye: No discharge. Left eye: No discharge. Conjunctiva/sclera: Conjunctivae normal. Pupils: Pupils are equal, round, and reactive to light. Cardiovascular: Rate and Rhythm: Normal rate and regular rhythm. Pulses: Normal pulses. Heart sounds: Normal heart sounds. No murmur heard. Pulmonary: Breath sounds: No stridor. No wheezing. Comments: Bilateral basal crackles present Abdominal: General: Bowel sounds are normal. Palpations: Abdomen is soft. Musculoskeletal: General: No swelling. Cervical back: Normal range of motion and neck supple. Right lower leg: No edema. Left lower leg: No edema. Skin: General: Skin is warm. Coloration: Skin is not jaundiced. Neurological: Comments: AxOx2-3 Psychiatric: Comments: No agitation Current Medications: Inpatient medications reviewed: yes Home medications reviewed: yes OARRS Reviewed: No Report Available 24 Hour PRN Meds: Labetalol 20 mg IV x 1 Results/Verification of Data Review Objective data reviewed (be specific which labs, imaging reports with dates reviewed): - lab, imaging, MAR reviewed 06/29/24 Data in Support of Terminal Illness: Is patient hospice appropriate? TBD Images from the original note were not included. [facility] [place], Pulmonary Critical Care and Sleep Medicine [address] [place] [address] Critical Care Note: Patient - Mikel Winston, Age - 78 y.o. - 1945 Room Number - [id number] A N - [id number] [facility] # - [id number] Date of Admission - 06/25/2024 5:04 PM Hospital Day - 4 HPI/Subjective -year-old female with known history of coronary artery disease type 2 diabetes, hypertension, cirrhosis marked improvement in mental status overnight remains on ceftriaxone for E. coli UTI as well as lactulose for hepatic encephalopathy Active Hospital Problem List Patient Active Problem List Diagnosis Angina at rest (HCC) Generalized edema Diabetes (HCC) Coronary artery disease involving coronary bypass graft of [place] heart without angina pectoris Nonrheumatic aortic valve stenosis Essential hypertension Dyslipidemia BARRY (acute kidney injury) (HCC) UTI (urinary tract infection) Cellulitis of right lower extremity Symptomatic sinus bradycardia Acute cystitis with hematuria Events of Past 24 Hours As above All other systems reviewed Vitals height is 1.626 m (5' 4). Her axillary temperature is 36.9 C (98.4 F). Her blood pressure is 164/71 (abnormal) and her pulse is 97. Her respiration is 14 and oxygen saturation is 100%. Range Data Temperature Range: Temp: 36.9 C (98.4 F)Temp Av.8 C (98.3 F) Min: 36.3 C (97.4 F) Max: 37.4 C (99.3 F) BP Range: Systolic (24hrs), Av , Min:150 , Max:171 Diastolic (24hrs), Av, Min:62, Max:80 Pulse Range: Pulse Av Min: 97 Max: 113 Respiration Range: Resp Av.9 Min: 14 Max: 22SpO2: 100 % 24hr Pulse Ox Range: SpO2 Av.8 % Min: 95 % Max: 100 % O2 Flow Rate (L/min): 2 L/min I/O Intake/Output Summary (Last 24 hours) at 06/29/2024 0704 Last data filed at 06/29/2024 0631 Gross per 24 hour Intake 1784 ml Output 1455 ml Net 329 ml I/O last 3 completed shifts: In: 2863 [I.V.:567; NG/GT:2296] Out: 2130 [Urine:2130] @IODETAILS@ @[email or web address]@ Lines, ET tube, Devices Lines -none Medications [Held by provider] aspirin, 81 mg, Oral, Daily cefTRIAXone, 1,000 mg, IntraVENous, q24h cholecalciferol, 5,000 Units, Oral, Daily cyanocobalamin, 100 mcg, Oral, Daily ferrous sulfate, 325 mg, Oral, Daily with breakfast furosemide, 20 mg, IntraVENous, Once influenza, 0.5 mL, IntraMUSCular, Prior to discharge insulin lispro, 0-12 Units, SubCUTAneous, q6h lactulose, 20 g, Oral, TID levothyroxine, 50 mcg, Oral, qAM AC linaGLIPtin, 5 mg, Oral, Daily mupirocin, , Topical, BID pantoprazole, 40 mg, Oral, Nightly Or pantoprazole (ProtoNix) 40 mg in sodium chloride (PF) 0.9 % 10 mL injection, 40 mg, IntraVENous, Nightly Potassium Bicarb-Citric Acid, 30 mEq, Oral, Daily rosuvastatin, 20 mg, Oral, Daily sodium chloride 0.9%, 5-40 mL, IntraVENous, q12h PRN PRN medications: acetaminophen OR acetaminophen, dextrose, dextrose, glucagon (rDNA), glucose, ipratropium-albuterol, labetalol, ondansetron ODT OR ondansetron, polyethylene glycol (PEG) 3350, sodium chloride, sodium chloride, sodium chloride, sodium chloride 0.9% IV sodium chloride, 50 mL/hr, Last Rate: 50 mL/hr (06/28/24 0552) Diet/Nutrition Diet, tube feeding no tray Nasogastric; Glucerna 1.5 Roe; Continuous; Yes; 10; Q 8 Hours; 10; 40 (and additional linked orders) Exam Constitutional - Awake, follows simple commands General Appearance well developed, well nourished HEENT - Normocephalic, atraumatic. PERRLA, sclarea is anicteric, conjunctiva is pink, nasal mucosa is normal, no congestion, external ears are intact. Lungs - Poor air entry bilaterally, diminished breathe sounds at the bases, no obvious wheezing or crackles. Cardiovascular - Heart sounds are normal. normal rate and rhythm regular, no murmur, gallop or rub. Abdomen - soft, nontender, nondistended, no masses or organomegaly Neurologic - There are no focal motor deficits grossly Skin - no bruising or bleeding, good turgor, normal warmth Extremities - no cyanosis, clubbing or edema Peripheral pulses- radial and pedal pulses 2+ bilaterally Lab Results CBC Lab Results Component Value Date WBC 9.4 06/29/2024 RBC 2.96 (L) 06/29/2024 HGB 9.3 (L) 06/29/2024 HGB 8.6 (L) 06/26/2024 HCT 30.0 (L) 06/29/2024 PLT 95 (L) 06/29/2024 MCV 101.4 (H) 06/29/2024 MCH 31.4 06/29/2024 MCHC 31.0 06/29/2024 RDW 15.3 (H) 06/29/2024 LYMPHOPCT 8 (L) 06/29/2024 MONOPCT 11 06/29/2024 EOSPCT 1 06/29/2024 BASOPCT 1 06/29/2024 EOSABS 0.1 06/29/2024 BASOSABS 0.1 06/29/2024 BMP Lab Results Component Value Date NA 145 06/29/2024 K 3.7 06/29/2024 CL 120 (H) 06/29/2024 CO2 21 (L) 06/29/2024 BUN 51 (H) 06/29/2024 CREATININE 1.25 (H) 06/29/2024 GLUCOSE 190 (H) 06/29/2024 MG 2.2 06/29/2024 PHOS 2.2 (L) 06/29/2024 LFTS Lab Results Component Value Date ALKPHOS 123 06/29/2024 ALT 26 06/29/2024 AST 53 (H) 06/29/2024 PROT 5.8 (L) 06/29/2024 BILITOT 0.9 06/29/2024 ABG Results from last 7 days Lab Units 06/26/24 0817 PH ART 7.469* PCO2 ART mm Hg 29.1* PO2 ART mm Hg 97.0 HCO3 ART mmol/L 20.7* O2 SAT ART % 96.6* BASE EXC ART mmol/L -2.4 SOURCE OF OXYGEN Room Air No components found for: IFIO2, MODE, SETTIDVOL, SETPEEP INR Lab Results Component Value Date INR 1.2 (H) 06/25/2024 PROTIME 13.2 (H) 06/25/2024 Radiology CXR Reviewed (See actual reports for details) ASSESSMENT AND PLAN Acute encephalopathy probably hepatic, marked improvement in mental status today, continue to monitor mental status E. coli UTI, complete course of antibiotics GI bleed? Source, hematocrit is stable Hypernatremia, gradually improving, continue free water monitor BMP Acute kidney injury or underlying chronic kidney disease on IV fluids, monitor BMP History of second-degree heart block, permanent pacemaker Moderate aortic stenosis Class III obesity Patient to be transferred to telemetry for continuing care patient discussed with Dr. Villasenor from acute care service Wean oxygen as tolerated. Keep O2 sat 90-92% Stress ulcer prophylaxis Use replacement protocols DVT prophylaxis Case discussed with nurse and patient/family. Questions and concerns addressed. [facility] Attending GI Progress Note SUBJECTIVE: No events overnight. Family at bedside. Lethargy, responds to pain, getting tf. No overt bleeding overnight. Medications @MEDCMED@ OBJECTIVE VITALS: BP 153/62 Pulse 111 Temp 36.3 C (97.4 F) (Axillary) Resp 21 Ht 5' 4 (1.626 m) SpO2 98% BMI 36.56 kg/m TEMPERATURE: Current - Temp: 36.3 C (97.4 F); Max - Temp Av.9 C (98.4 F) Min: 36.3 C (97.4 F) Max: 37.4 C (99.3 F) RESPIRATIONS RANGE: Resp Av.5 Min: 12 Max: 24 PULSE RANGE: Pulse Av.7 Min: 96 Max: 113 BLOOD PRESSURE RANGE: Systolic (24hrs), Av , Min:142 , Max:169 ; Diastolic (24hrs), Av, Min:58, Max:83 PULSE OXIMETRY RANGE: SpO2 Av.2 % Min: 95 % Max: 100 % 24HR INTAKE/OUTPUT: Intake/Output Summary (Last 24 hours) at 06/28/2024 2356 Last data filed at 06/28/2024 2242 Gross per 24 hour Intake 2145 ml Output 1525 ml Net 620 ml GENERAL: obtunded, NG in place HEENT: NCAT, PERRLA, EOMI, Scleral anicteric. Oropharhynx clear with no erythema or exudate. Neck supple, no cervical LAD or thyromegaly. CV: RRR, NL S1/S2, no murmurs. Distal pulses palpable and equal b/l. LUNGS: CTA b/l. Normal percussion and palpation. No W/R/R. ABD: + BS, soft, non-tender and non-distended. No hepatosplenomegaly. No mass felt. No rebound or guarding. EXT: No C/C/E. No muscle atrophy. SKIN: No skin lesion or breakdown. NEURO: responds to pain. Data Recent blood work, radiologic study and endoscopic study were reviewed with the patient. CBC: Recent Labs 06/27/24 0404 06/27/24 1015 06/28/24 0454 06/28/24 1224 06/28/24 1810 06/28/24 2338 WBC 11.9* -- 11.1* -- -- -- HGB 8.6* < > 8.8* 8.9* 9.0* 8.5* HCT 27.1* < > 28.0* 28.1* 28.6* 27.4* PLT 122* -- 105* -- -- -- < > = values in this interval not displayed. HEPATIC: Recent Labs 06/27/24 0404 06/28/24 0454 AST 41 51* ALT 20 24 BILITOT 0.9 0.9 ALKPHOS 64 85 LIPASE/AMYLASE: No results for input(s): AMYLASE, LIPASE in the last 72 hours. LACTATE: No lab exists for component: LACTA BNP: No results for input(s): BNP in the last 72 hours. INR: No results for input(s): INR in the last 72 hours. ASSESSMENT AND PLAN 1. AMS - ?PSE. on lactulose, UTI being treated. Family feels patient is more alert today but still not responding or interacting 2. GIB - see abve, hbg stable, getting tf. Possibly consider lgit/ugit eval once medically stable, and able to tolerate prep 3. MASLD - labs stable, no prior work up, lft nl. Consider serologies once stable, or if lft increase Images from the original note were not included. [facility] [place], Pulmonary Critical Care and Sleep Medicine [address] [place] [address] Critical Care Note: Patient - Mikel Winston, Age - 78 y.o. - 1945 Room Number - [id number] [id number] Date of Admission - 06/25/2024 5:04 PM Hospital Day - 3 HPI/Subjective 78-year-old female with past medical history significant for coronary artery disease, type 2 diabetes, hypertension, cirrhosis remains in ICU due to persistent encephalopathy, ammonia level has improved markedly since admission patient also has E. coli UTI is on IV ceftriaxone Active Hospital Problem List Patient Active Problem List Diagnosis Angina at rest (HCC) Generalized edema Diabetes (HCC) Coronary artery disease involving coronary bypass graft of [place] heart without angina pectoris Nonrheumatic aortic valve stenosis Essential hypertension Dyslipidemia BARRY (acute kidney injury) (HCC) UTI (urinary tract infection) Cellulitis of right lower extremity Symptomatic sinus bradycardia Acute cystitis with hematuria Events of Past 24 Hours As above All other systems reviewed Vitals height is 1.626 m (5' 4). Her axillary temperature is 37 C (98.6 F). Her blood pressure is 164/83 (abnormal) and her pulse is 111. Her respiration is 24 and oxygen saturation is 100%. Range Data Temperature Range: Temp: 37 C (98.6 F)Temp Av.9 C (98.5 F) Min: 36.5 C (97.7 F) Max: 37.2 C (99 F) BP Range: Systolic (24hrs), Av , Min:139 , Max:169 Diastolic (24hrs), Av, Min:58, Max:83 Pulse Range: Pulse Av.4 Min: 96 Max: 112 Respiration Range: Resp Av.3 Min: 12 Max: 24SpO2: 100 % 24hr Pulse Ox Range: SpO2 Av % Min: 100 % Max: 100 % O2 Flow Rate (L/min): 2 L/min I/O Intake/Output Summary (Last 24 hours) at 06/28/2024 0749 Last data filed at 06/28/2024 0602 Gross per 24 hour Intake 3205 ml Output 1075 ml Net 2130 ml I/O last 3 completed shifts: In: 4405.6 [I.V.:2420.1; Blood:466.5; NG/GT:1519] Out: 1894 [Urine:189] @IODETAILS@ @[email or web address]@ Lines, ET tube, Devices Lines -none Medications [Held by provider] aspirin, 81 mg, Oral, Daily cefTRIAXone, 1,000 mg, IntraVENous, q24h cholecalciferol, 5,000 Units, Oral, Daily cyanocobalamin, 100 mcg, Oral, Daily ferrous sulfate, 325 mg, Oral, Daily with breakfast influenza, 0.5 mL, IntraMUSCular, Prior to discharge insulin lispro, 0-12 Units, SubCUTAneous, q6h lactulose, 20 g, Oral, TID levothyroxine, 50 mcg, Oral, qAM AC linaGLIPtin, 5 mg, Oral, Daily mupirocin, , Topical, BID pantoprazole, 40 mg, Oral, Nightly Or pantoprazole (ProtoNix) 40 mg in sodium chloride (PF) 0.9 % 10 mL injection, 40 mg, IntraVENous, Nightly Potassium Bicarb-Citric Acid, 30 mEq, Oral, Daily rosuvastatin, 20 mg, Oral, Daily sodium chloride 0.9%, 5-40 mL, IntraVENous, q12h PRN PRN medications: acetaminophen OR acetaminophen, dextrose, dextrose, glucagon (rDNA), glucose, ipratropium-albuterol, ondansetron ODT OR ondansetron, polyethylene glycol (PEG) 3350, sodium chloride, sodium chloride, sodium chloride, sodium chloride 0.9% IV sodium chloride, 50 mL/hr, Last Rate: 50 mL/hr (06/28/24 0552) Diet/Nutrition Diet, tube feeding no tray Nasogastric; Glucerna 1.5 Roe; Continuous; Yes; 10; Q 8 Hours; 10; 40 (and additional linked orders) Exam Constitutional -as above General Appearance well developed, well nourished HEENT - Normocephalic, atraumatic. PERRLA, sclarea is anicteric, conjunctiva is pink, nasal mucosa is normal, no congestion, external ears are intact. Lungs - Poor air entry bilaterally, diminished breathe sounds at the bases, no obvious wheezing or crackles. Cardiovascular - Heart sounds are normal. normal rate and rhythm regular, no murmur, gallop or rub. Abdomen - soft, nontender, nondistended, no masses or organomegaly Neurologic - There are no focal motor deficits grossly Skin - no bruising or bleeding, good turgor, normal warmth Extremities - no cyanosis, clubbing or edema Peripheral pulses- radial and pedal pulses 2+ bilaterally Lab Results CBC Lab Results Component Value Date WBC 11.1 (H) 06/28/2024 RBC 2.78 (L) 06/28/2024 HGB 8.8 (L) 06/28/2024 HGB 8.6 (L) 06/26/2024 HCT 28.0 (L) 06/28/2024 PLT 105 (L) 06/28/2024 MCV 100.7 (H) 06/28/2024 MCH 31.7 06/28/2024 MCHC 31.4 06/28/2024 RDW 15.6 (H) 06/28/2024 NRBC 0.0 06/26/2024 LYMPHOPCT 10 (L) 06/28/2024 MONOPCT 12 06/28/2024 EOSPCT 1 06/28/2024 BASOPCT 0.5 06/26/2024 MONOSABS 0.8 06/26/2024 LYMPHSABS 0.8 (L) 06/26/2024 EOSABS 0.1 06/28/2024 BASOSABS 0.0 06/26/2024 BMP Lab Results Component Value Date NA 146 (H) 06/28/2024 K 3.6 06/28/2024 CL 120 (H) 06/28/2024 CO2 19 (L) 06/28/2024 BUN 51 (H) 06/28/2024 CREATININE 1.43 (H) 06/28/2024 GLUCOSE 163 (H) 06/28/2024 MG 2.1 06/28/2024 PHOS 2.9 06/28/2024 LFTS Lab Results Component Value Date ALKPHOS 85 06/28/2024 ALT 24 06/28/2024 AST 51 (H) 06/28/2024 PROT 6.0 (L) 06/28/2024 BILITOT 0.9 06/28/2024 ABG Results from last 7 days Lab Units 06/26/24 0817 PH ART 7.469* PCO2 ART mm Hg 29.1* PO2 ART mm Hg 97.0 HCO3 ART mmol/L 20.7* O2 SAT ART % 96.6* BASE EXC ART mmol/L -2.4 SOURCE OF OXYGEN Room Air No components found for: IFIO2, MODE, SETTIDVOL, SETPEEP INR Lab Results Component Value Date INR 1.2 (H) 06/25/2024 PROTIME 13.2 (H) 06/25/2024 APTT Recent Labs 06/25/24 1738 APTT 25.1 Lactic Acid No components found for: LACTA BNP No results for input(s): BNP in the last 72 hours. Cultures Radiology CXR Reviewed (See actual reports for details) ASSESSMENT AND PLAN Acute encephalopathy, probably hepatic, improving ammonia levels, on lactulose continue to monitor mental status E. coli UTI, continue IV ceftriaxone GI bleed, maintaining hematocrit and hemodynamics History of cirrhosis of liver History of coronary artery disease status post CABG in 2009 and PCI in 2018 Hypernatremia, continue free water Acute kidney injury on underlying chronic kidney disease, on IV fluids, continue to monitor BMP History of second degree heart block status post permanent pacemaker Moderate aortic stenosis Class III obesity Wean oxygen as tolerated. Keep O2 sat 90-92% Stress ulcer prophylaxis Use replacement protocols DVT prophylaxis Case discussed with nurse and family. Questions and concerns addressed. Total critical care time caring for this patient with life threatening, unstable organ failure, including direct patient contact, management of life support systems, review of data including imaging and labs, discussions with other team members and physicians at least 35 minutes so far today, excluding procedures. [facility] Attending GI Progress Note SUBJECTIVE: lethargy, responds to pain, getting tf. Reportedly had 2 small marroon-erinn stools Medications @MEDCMED@ OBJECTIVE VITALS: BP 126/62 (BP Location: Right arm, Patient Position: Lying) Pulse 109 Temp 37.1 C (98.8 F) (Axillary) Resp 14 Ht 1.626 m (5' 4) SpO2 100% BMI 36.56 kg/m TEMPERATURE: Current - Temp: 37.1 C (98.8 F); Max - Temp Av.9 C (98.4 F) Min: 36.6 C (97.9 F) Max: 37.1 C (98.8 F) RESPIRATIONS RANGE: Resp Av.7 Min: 13 Max: 31 PULSE RANGE: Pulse Av.8 Min: 100 Max: 117 BLOOD PRESSURE RANGE: Systolic (24hrs), Av , Min:102 , Max:142 ; Diastolic (24hrs), Av, Min:45, Max:64 PULSE OXIMETRY RANGE: SpO2 Av % Min: 100 % Max: 100 % 24HR INTAKE/OUTPUT: Intake/Output Summary (Last 24 hours) at 06/27/2024 09 Last data filed at 06/27/2024 0402 Gross per 24 hour Intake 1675.6 ml Output 945 ml Net 730.6 ml GENERAL: obtunded, NG in place HEENT: NCAT, PERRLA, EOMI, Scleral anicteric. Oropharhynx clear with no erythema or exudate. Neck supple, no cervical LAD or thyromegaly. CV: RRR, NL S1/S2, no murmurs. Distal pulses palpable and equal b/l. LUNGS: CTA b/l. Normal percussion and palpation. No W/R/R. ABD: + BS, soft, non-tender and non-distended. No hepatosplenomegaly. No mass felt. No rebound or guarding. EXT: No C/C/E. No muscle atrophy. SKIN: No skin lesion or breakdown. NEURO: responds to pain. Data Recent blood work, radiologic study and endoscopic study were reviewed with the patient. CBC: Recent Labs 06/26/24 0513 06/26/24 0608 06/26/24 1711 06/27/24 0219 06/27/24 0404 WBC 7.9 -- -- -- 11.9* HGB 8.5* < > 7.9* 8.7* 8.6* HCT 27.2* < > 24.6* 27.1* 27.1* PLT 127* -- -- -- 122* < > = values in this interval not displayed. HEPATIC: Recent Labs 06/26/24 0852 06/27/24 0404 AST 44 41 ALT 21 20 BILITOT 0.8 0.9 ALKPHOS 74 64 LIPASE/AMYLASE: No results for input(s): AMYLASE, LIPASE in the last 72 hours. LACTATE: No lab exists for component: LACTA BNP: No results for input(s): BNP in the last 72 hours. INR: Recent Labs 06/25/24 1738 INR 1.2* ASSESSMENT AND PLAN 1. Ams - on lactulose, no obvious infection, hbg stable despite maroon stools 2. GIB - see abve, hbg stable, getting tf. Possibly consider lgit/ugit eval once medically stable, and able to tolerate prep 3. MASLD - labs stable, no prior work up, lft nl. Consider serogies once stable, or if lft increase Images from the original note were not included. [facility] [place], Pulmonary Critical Care and Sleep Medicine [address] [place] [address] Critical Care Note: Patient - Mikel Winston, Age - 78 y.o. - 1945 Room Number - [id number] [id number] Date of Admission - 06/25/2024 5:04 PM Hospital Day - 2 HPI/Subjective 78-year-old female, with past medical history significant for coronary artery disease, type 2 diabetes, hypertension, cirrhosis transferred from [facility] to ICU for altered mental status upon transfer patient's ammonia level was noticed to be 134 patient had NG tube placed and started on lactulose. Patient also having bloody bowel movements transfused with 1 unit of PRBC last night Active Hospital Problem List Patient Active Problem List Diagnosis Angina at rest (HCC) Generalized edema Diabetes (HCC) Coronary artery disease involving coronary bypass graft of [place] heart without angina pectoris Nonrheumatic aortic valve stenosis Essential hypertension Dyslipidemia BARRY (acute kidney injury) (HCC) UTI (urinary tract infection) Cellulitis of right lower extremity Symptomatic sinus bradycardia Acute cystitis with hematuria Events of Past 24 Hours Patient is still responsive to painful stimuli only able to maintain her airway All other systems reviewed Vitals height is 1.626 m (5' 4). Her axillary temperature is 36.9 C (98.4 F). Her blood pressure is 126/62 and her pulse is 109. Her respiration is 14 and oxygen saturation is 100%. Range Data Temperature Range: Temp: 36.9 C (98.4 F)Temp Av.8 C (98.3 F) Min: 36.6 C (97.9 F) Max: 37.1 C (98.7 F) BP Range: Systolic (24hrs), Av , Min:102 , Max:151 Diastolic (24hrs), Av, Min:45, Max:64 Pulse Range: Pulse Av.9 Min: 99 Max: 117 Respiration Range: Resp Av.8 Min: 13 Max: 31SpO2: 100 % 24hr Pulse Ox Range: SpO2 Av.8 % Min: 98 % Max: 100 % O2 Flow Rate (L/min): 2 L/min I/O Intake/Output Summary (Last 24 hours) at 06/27/2024 0703 Last data filed at 06/27/2024 0402 Gross per 24 hour Intake 1675.6 ml Output 945 ml Net 730.6 ml I/O last 3 completed shifts: In: 1675.6 [I.V.:1036.1; Blood:466.5; NG/GT:173] Out: 945 [Urine:945] @IODETAILS@ @[id number]@ Lines, ET tube, Devices Lines -none Medications [Held by provider] aspirin, 81 mg, Oral, Daily cefTRIAXone, 1,000 mg, IntraVENous, q24h cholecalciferol, 5,000 Units, Oral, Daily cyanocobalamin, 100 mcg, Oral, Daily ferrous sulfate, 325 mg, Oral, Daily with breakfast influenza, 0.5 mL, IntraMUSCular, Prior to discharge insulin lispro, 0-12 Units, SubCUTAneous, q6h lactulose, 20 g, Oral, TID levothyroxine, 50 mcg, Oral, qAM AC linaGLIPtin, 5 mg, Oral, Daily pantoprazole, 40 mg, Oral, Nightly Or pantoprazole (ProtoNix) 40 mg in sodium chloride (PF) 0.9 % 10 mL injection, 40 mg, IntraVENous, Nightly rosuvastatin, 20 mg, Oral, Daily sodium chloride 0.9%, 5-40 mL, IntraVENous, q12h PRN PRN medications: acetaminophen OR acetaminophen, dextrose, dextrose, glucagon (rDNA), glucose, ipratropium-albuterol, ondansetron ODT OR ondansetron, polyethylene glycol (PEG) 3350, sodium chloride, sodium chloride, sodium chloride, sodium chloride 0.9% IV sodium chloride, 50 mL/hr, Last Rate: 50 mL/hr (06/25/241847) Diet/Nutrition Diet, tube feeding no tray Nasogastric; Glucerna 1.5 Roe; Continuous; Yes; 10; Q 8 Hours; 10; 40 (and additional linked orders) Exam Constitutional -as above General Appearance well developed, well nourished HEENT - Normocephalic, atraumatic. PERRLA, sclarea is anicteric, conjunctiva is pink, nasal mucosa is normal, no congestion, external ears are intact. Lungs - Poor air entry bilaterally, diminished breathe sounds at the bases, no obvious wheezing or crackles. Cardiovascular - Heart sounds are normal. normal rate and rhythm regular, no murmur, gallop or rub. Abdomen - soft, nontender, nondistended, no masses or organomegaly NeurologicThere are no focal motor deficits grossly Skin - no bruising or bleeding, good turgor, normal warmth Extremities - no cyanosis, clubbing or edema Peripheral pulses- radial and pedal pulses 2+ bilaterally Lab Results CBC Lab Results Component Value Date WBC 11.9 (H) 06/27/2024 RBC 2.77 (L) 06/27/2024 HGB 8.6 (L) 06/27/2024 HGB 8.6 (L) 06/26/2024 HCT 27.1 (L) 06/27/2024 PLT 122 (L) 06/27/2024 MCV 97.8 06/27/2024 MCH 31.0 06/27/2024 MCHC 31.7 06/27/2024 RDW 15.3 (H) 06/27/2024 NRBC 0.0 06/26/2024 LYMPHOPCT 5 (L) 06/27/2024 MONOPCT 6 06/27/2024 EOSPCT 0.2 06/26/2024 BASOPCT 0.5 06/26/2024 MONOSABS 0.8 06/26/2024 LYMPHSABS 0.8 (L) 06/26/2024 EOSABS 0.0 06/26/2024 BASOSABS 0.0 06/26/2024 BMP Lab Results Component Value Date NA 147 (H) 06/27/2024 K 3.3 (L) 06/27/2024 CL 120 (H) 06/27/2024 CO2 20 (L) 06/27/2024 BUN 51 (H) 06/27/2024 CREATININE 1.59 (H) 06/27/2024 GLUCOSE 159 (H) 06/27/2024 MG 2.0 06/27/2024 PHOS 3.7 06/27/2024 LFTS Lab Results Component Value Date ALKPHOS 64 06/27/2024 ALT 20 06/27/2024 AST 41 06/27/2024 PROT 6.0 (L) 06/27/2024 BILITOT 0.9 06/27/2024 ABG Results from last 7 days Lab Units 06/26/24 0817 PH ART 7.469* PCO2 ART mm Hg 29.1* PO2 ART mm Hg 97.0 HCO3 ART mmol/L 20.7* O2 SAT ART % 96.6* BASE EXC ART mmol/L -2.4 SOURCE OF OXYGEN Room Air No components found for: IFIO2, MODE, SETTIDVOL, SETPEEP INR Lab Results Component Value Date INR 1.2 (H) 06/25/2024 PROTIME 13.2 (H) 06/25/2024 APTT Recent Labs 06/25/24 1738 APTT 25.1 Lactic Acid No components found for: LACTA BNP No results for input(s): BNP in the last 72 hours. Cultures Radiology CXR Reviewed (See actual reports for details) ASSESSMENT AND PLAN Acute encephalopathy probably hepatic encephalopathy although ammonia level has improved mental status has not improved by much patient had a CT done on the morning of 26 June which was unremarkable for any acute changes, continue lactulose, monitor mental status EEG done yesterday did not show any seizure activity, showed continuous moderate to marked diffuse slowing consistent with moderate to severe toxic metabolic encephalopathy GI bleed? Source either upper or lower, monitor hemoglobin hematocrit, discussed with GI E. coli UTI could be contributing to mental status change, patient on IV ceftriaxone History of coronary artery disease status post CABG in 2009, PCI in 2018 History of cirrhosis of liver with probable encephalopathy Acute kidney injury on chronic kidney disease, continue IVF monitor BMP History of secondary heart block status post permanent pacemaker History of moderate aortic stenosis Wean oxygen as tolerated. Keep O2 sat 90-92% Stress ulcer prophylaxis Use replacement protocols DVT prophylaxis Case discussed with nurse and family. Questions and concerns addressed. Total critical care time caring for this patient with life threatening, unstable organ failure, including direct patient contact, management of life support systems, review of data including imaging and labs, discussions with other team members and physicians at least 35 minutes so far today, excluding procedures. [facility] Respiratory Care Department Progress Note As part of the Respiratory Assessment Program (RAP), the following Respiratory Therapist evaluation has been completed, including a chart review and clinical/physical assessment. Respiratory Therapist RAP Evaluation Guideline Points 0 1 2 3 4 Points Strongly Consider History Factor No Pulmonary conditions Stable Pulmonary condition(s) Surgery or Intervention that may impact Pulmonary system (at risk) Surgery or Intervention that is impacting Pulmonary system Active Exacerbation of Pulmonary Condition 0 Respiratory Pattern Regular, RR= 12-18 WEISS or Increased RR= 19-24 Irregular, or RR= 25-30 SOB, talk in short sentences, or RR= 31-35 Severe SOB, accessory muscle use, one word answers, or RR>35 0 Aerosol Med(s), High Flow O2 Breath Sounds Clear Diminished in 1 lobe Diminished in <= 2 lobes Adventitious breath sounds Coarse crackles, Wheezes, or Diminished in >2 lobes 2 Aerosol Med(s), Bronchial Hygiene, Hyperinflation Cough & Sputum Strong cough, no secretion retention or production Weak cough, no secretion retention or production Weak cough, w/ production (less often than Q2hr), or secretion retention No cough, w/ secretion retention or production (less often than Q2hr) Significant secretion production (more often than Q2hr) or mucus plug 0 Aerosol Med(s), Bronchial Hygiene, Hyperinflation Level of Activity Ambulatory Ambulatory with Assist Up in chair or edge of bed (dangle) Non-ambulatory, bedridden with active ROM Completely paralyzed or without active ROM 0 Triage 5 0-2 Triage 4 3-5 Triage 3 6-10 Triage 2 11-14 Triage 1 >=15 Total 2 Triage Score = 5 TRIAGE SCORING - SUGGESTED FREQUENCIES Aerosol Therapy Bronchial Hygiene Hyperinflation Triage Score Q4h & PRN 1 Q4hWA (QID) & PRN 2 TID & PRN 3 BID & PRN 4 PRN 5 Therapy(s) Indicated Yes/No Aerosol Medication n Hyperinflation n Bronchial Hygiene n High Flow Oxygen n RT to enter/modify frequency of treatment order in EMR/EHR to match this RAP evaluation. Based on this RAP evaluation the following therapy is being initiated: Duoneb At the following frequency: Q4 PRN Comments: Thank you for involving [facility] in the care of this patient, Nutrition Assessment Type and Reason for Visit: Initial (ICU admit) Nutrition Recommendations/Plan: NPO with AMS in ICU, NG in place for latulose Discussed with Dr Stringer, once NG placement confirmed, begin trophic EN Goal EN: Glucerna 1.5 @ 40 mL/hr will provide: 1440 kcal, 79 g protein, 728 mL free fluid --> 26 kcal and 1.4 g protein/kg IBW(55 kg) As able, please obtain actual bed scale weight for most accurate anthropometric data and calculation of macronutrient and fluid needs RDN to continue to monitor weekly Malnutrition Assessment: Malnutrition Status: Insufficient data Context: Acute Illness Findings of the 6 clinical characteristics of malnutrition: Energy Intake: Mild decrease in energy intake (Comment) (poor PO d/t AMS x24 hours) Weight Loss: No significant weight loss Body Fat Loss: Unable to assess Muscle Mass Loss: Unable to assess Fluid Accumulation: Moderate to Severe Extremities Librarian Special Collections Strength: Not Performed Nutrition Assessment: 78 year old woman with PMHx: CAD (s/p CABG 2018), PCI (s/p stenting in 2018 d/t moderate aortic stenosis), DMII(A1C=6.1% 01/28/24), CKD stage III, liver cirrhosis, osteoporosis, HTN. Most recently admitted to [facility] 05/29-06/01/24 with bilateral leg swelling, initially presented to [facility] ED then transferred to [facility] for PPM placement. Underwent s/p [employer] PPM implant on 05/31/25, post op device check was normal and discharged home in improved condition. She currently presents to [facility] with AMS. LKW ~1100 on 06/25 while speaking to daughter over the phone, called dropped. Granddaughter later found patient ~1500 on 06/25 slumped in here chair and confused at home. Significant labs on admit: Hgb(9.0), Hct(27.7), BUN(37), Creatinine(1.40), INR(1.2), troponin(0.040). +Urine for EColi. +FBOT. Admitted to [facility], in under water assistant mental status with further decline- only responding to painful stimuli. +Bloody stool noted, with coffee ground emesis. WAREHOUSE OPERATIONS ASSOCIATE called and transferred to ICU this morning. NG Placed at 0945. RN with patient at time of attempted assessment. Deferred NFPE until follow-up. Discussed with MD via secureChat, agreeable to begin trophic EN once NG placement confirmed. Estimated Daily Nutrient Needs: Energy Requirements Based On: Kcal/kg Weight Used for Energy Requirements: [place] Weight for Energy Calculation (kg): 55 kg Total Energy Requirements (kcals/day): 0368-9658 (25-30 kcal/kg IBW) Weight Used for Protein Requirements: [place] Weight in Kg Used for Protein Requirements: 55 kg Estimated Total Protein (g/day): 55-83 (1.0-1.5 g protein/kg IBW) Estimated Daily Total Fluid (ml/day): per MD Nutrition Related Findings: +I/O balance. Med and labs reviewed. +3 BLE edema noted, Stanislav score=12. +bloody bm and +coffee ground emesis. NG in place, planning to start lactulose for elevated Ammonia (134). Wound Type: None Current Nutrition Therapies: Diet, tube feeding no tray Nasogastric; Glucerna 1.5 Roe; Continuous; Yes; 10; Q 8 Hours; 10; 40 (and additional linked orders) Current Oral Intake Average Meal Intake: NPO Average Supplements Intake: NPO Anthropometric Measures: Height: 162.6 cm (5' 4) Current Body Weight: 86.2 kg (190 lb) Weight Source: (noted at office visit on 06/11/24. No weight obtained this admit) Admission Body Weight: (NA) Usual Body Weight: 88.9 kg (196 lb) (Per EMR--> 200# 06/27/23; 209# 12/07/23; 206# 01/06/24; 196# 03/16/24; 198# 04/27/24; 190# 06/11/24) % Weight Change (Calculated): -3.1 [place] Body Weight (lbs) (Calculated): 120 lbs [place] Body Weight (Kg) (Calculated): 55 kg % [place] Body Weight (Calculated): 158.3 % BMI (kg/m2) (Calculated): 32.6 Weight Adjustment For: No Adjustment BMI Categories: Obese Class 1 (BMI 30.0-34.9) (based on obtained office weight of 190# 06/21/24) Nutrition Diagnosis: Altered GI function related to cognitive or neurological impairment as evidenced by NPO or clear liquid status due to medical condition, nutrition support - enteral nutrition Altered nutrition-related lab values related to renal dysfunction, endocrine dysfuntion as evidenced by lab values Nutrition Interventions: Nutrition Education/Counseling: Education not indicated Coordination of Nutrition Care: Continue to monitor while inpatient Plan of Care discussed with: RN, and MD via secure chat Goals: Goals: Initiate PO diet, Tolerate nutrition support at goal rate, by next RD assessment Nutrition Monitoring and Evaluation: Behavioral-Environmental Outcomes: None Identified Food/Nutrient Intake Outcomes: Diet Advancement/Tolerance, Enteral Nutrition Intake/Tolerance Physical Signs/Symptoms Outcomes: Biochemical Data, GI Status, Weight, Skin, Nutrition Focused Physical Findings, Fluid Status or Edema, Hemodynamic Status Discharge Planning: Too soon to determine Crissy Denis RDN, LDN, Contact: *[phone] Images from the original note were not included. PHYSICAL THERAPY [facility] Name/MRN: Mikel Winston ([id number]) Date: 06/26/2024 Therapy eval and treat orders received. Chart review complete. Pt in with AMS and initially able to respond to verbal cues. WAREHOUSE OPERATIONS ASSOCIATE called this a.m. with pt experiencing multiple episodes of bloody stool, emesis, and reduced mental status only responding to painful stimuli. Spoke with RN regarding pt status. Pt currently being transferred to ICU. Pt not appropriate for therapy at this time. Will complete current orders d/t change in status this date. Please reorder therapy services when pt appropriate to participate. Philly Kam PT Images from the original note were not included. OCCUPATIONAL THERAPY [facility] Name/MRN: Mikel Winston ([id number]) Date: 06/26/2024 Therapy eval and treat orders received. Chart review complete. Pt in with AMS and initially able to respond to verbal cues. WAREHOUSE OPERATIONS ASSOCIATE called this a.m. with pt experiencing multiple episodes of bloody stool, emesis, and reduced mental status only responding to painful stimuli. Spoke with RN regarding pt status. Pt currently being transferred to ICU. Pt not appropriate for therapy at this time. Will discontinue orders d/t change in status this date. Please reorder therapy services when pt appropriate to participate. Quinn Alcala OT Rapid response was called as patient neurological status deteriorated. Patient was opening eyes earlier which she is not been doing anymore. Patient is not responsive. Pupils were 2 mm in diameter, reactive to light. Breathing comfortably and upon auscultation lung sounds are slightly diminished at the bases otherwise no accessory sounds were audible in the lungs. Cardiovascular exam showed regular rhythm with normal S1 and S2. During the rapid patient had another episode of bloody stool I did discuss the case with patient's daughter Ms. Forte over the phone and she was made aware of the patient's current health status. She told me that patient had episode of bloody stool earlier in the day also prior to coming to the emergency room. CODE STATUS was discussed with her and it was decided after detailed discussion to change the CODE STATUS to DNR Comfort Care arrest, DO NOT INTUBATE. Plan will be to repeat the CAT scan of the brain and KUB, along with the blood work. Depending on the findings further plan of care will be decided documented in this encounter [facility] 07-04-2024 Hospital course Narrative Images from the original note were not included. Hospitalist Discharge Summary Mikel Winston : 1945 Admit date: 06/25/2024 Discharge date: 07/04/2024 Admitting Physician: Erinn Santoro MD Primary Care Physician: KOMAL COHN DO Visit Status: ADMIT Code Status: DNR-CCA BRIEF HOSPITAL COURSE: Mikel is a 78 y.o. female with past medical history significant for CAD, DM, HTN who was brought into the ER with altered mental status. Patient per family was fine until around this morning at 11am when she was talking to her daughter over the phone and the phone evidently dropped. Later in the afternoon daughter tried to get hold of her however there was no response. Subsequently around 3 PM granddaughter went over to the house and she found the patient to be slumped over in her chair and confused. Patient is normally independent and lives by herself. Patient was subsequently brought into the emergency room for further evaluation and treatment. There is no record of her having any fever chills shortness of breath no bowel movement or bladder issues. Admitted for acute metabolic encephalopathy due to hepatic encephalopathy. Rapid response called on 06/26 due to not responding to verbal stimuli. Transferred to ICU on 06/26. NG tube placed and started on lactulose with monitoring of ammonia levels. Patient was found to have a UTI and treated with IV ceftriaxone. Responded well with improvement in mentation. GI consulted and stated that altered mental status due to PSI, advised lactulose therapy and to titrate 2-3 soft BMs per day. Supportive care measures taken. Regarding GI bleed, advised to hold off on EGD and colonoscopy at this time since hemoglobin is stabilized and there is no overt bleeding. If hemoglobin does trend down, we will reconsider as an inpatient. Transferred out of the ICU to the service on 06/29. Mentation back to baseline. Plan is discharge to [facility] Acute, acute on chronic, unstable/uncontrolled chronic problems/diagnoses: Acute metabolic encephalopathy likely due to hepatic encephalopathy E. coli UTI Suspected GI bleed Acute hypernatremia BARRY on CKD Elevated troponin due to demand ischemia Mild malnutrition Stable chronic problems affecting care, new non-acute diagnoses: HTN HLD CAD History of second-degree AV block with PPM Moderate aortic stenosis History of liver cirrhosis Class III obesity Past Medical History: Diagnosis Date CAD (coronary artery disease) Cirrhosis of liver (HCC) Diabetes mellitus (HCC) Hypertension Osteoporosis Thyroid disease Procedures: None Hospital Course: See discharge diagnoses list above and medication adjustments below in med rec.The patient is discharged in improved and stable condition. Consults: IP CONSULT TO GI IP CONSULT TO PALLIATIVE CARE Discharge Instructions: Diet: Dietary Orders (From admission, onward) Start Ordered 06/29/24 1607 Adult diet Easy to Chew Diet effective now Comments: Easy to chew solids and Thin liquids and meds whole in puree Question: Diet type Answer: Easy to Chew 06/29/24 1606 Activity: as tolerated Recommended Outpatient Tests: Disposition: Patient discharged in stable condition to SNF . Spent 45 min discharging the patient and coming up with patient discharge plan. Vitals: BP 142/62 Pulse 86 Temp 36.9 C (98.5 F) (Temporal) Resp 20 Ht 5' 4 (1.626 m) SpO2 99% BMI 36.56 kg/m Pulse Ox: SpO2 Av.3 % Min: 93 % Max: 100 % Supplemental O2: O2 Flow Rate (L/min): 2 L/min Physical Exam Constitutional: Appearance: She is obese. She is not ill-appearing. Cardiovascular: Rate and Rhythm: Normal rate. Heart sounds: No murmur heard. Pulmonary: Effort: No respiratory distress. Breath sounds: No wheezing. Abdominal: General: There is no distension. Tenderness: There is no abdominal tenderness. Musculoskeletal: General: No swelling. Neurological: Mental Status: Mental status is at baseline. LABS: Recent Labs 07/02/2445407/03/241 07/04/24 0421 NA 135 136 136 K 3.9 3.9 3.8 CL 110* 111* 110* CO2 25 26 28 BUN 29* 25* 20* CREATININE 1.11* 1.14* 1.22* GLUCOSE 113* 106* 98 CALCIUM 8.0* 7.9* 8.4 Recent Labs 07/02/2445407/03/241 07/04/24 0421 WBC 7.3 6.9 5.7 RBC 2.41* 2.30* 2.48* HGB 7.6* 7.1* 7.7* HCT 24.2* 23.3* 25.2* MCV 100.4* 101.3* 101.6* MCH 31.5 30.9 31.0 MCHC 31.4 30.5 30.6 RDW 14.6 14.6 14.5 PLT 84* 84* 94* MPV 11.3 11.5 10.9 Discharge Medications: Medication List START taking these medications dextromethorphan-guaiFENesin 30-600 MG 12 hr tablet Commonly known as: Mucinex DM Take 1 tablet by mouth 2 times daily as needed for cough for up to 15 days. Do not crush, chew, or split. lactulose 10 GM/15ML solution Commonly known as: Chronulac Take 30 mL (20 g) by mouth 3 times daily for 10 days. CHANGE how you take these medications furosemide 20 MG tablet Commonly known as: Lasix 3 days in a row What changed: how much to take how to take this when to take this reasons to take this CONTINUE taking these medications alpha tocopherol 100 units capsule Commonly known as: Vitamin E cyanocobalamin 100 MCG tablet Commonly known as: Vitamin B-12 ferrous sulfate 325 (65 Fe) MG tablet levothyroxine 50 MCG tablet Commonly known as: Synthroid, Levoxyl TAKE 1 TABLET BY MOUTH DAILY rosuvastatin 20 MG tablet Commonly known as: Crestor Take 1 tablet (20 mg) by mouth daily. SITagliptin 25 MG tablet Commonly known as: Januvia Take 1 tablet (25 mg) by mouth daily. trolamine salicylate 10 % cream Commonly known as: Aspercreme Apply topically every 8 hours as needed (for muscle pain). * cholecalciferol 200 Unit tablet split tablet Commonly known as: Vitamin D3 * Vitamin D 125 MCG (5000 UT) capsule * This list has 2 medication(s) that are the same as other medications prescribed for you. Read the directions carefully, and ask your doctor or other care provider to review them with you. STOP taking these medications aspirin 81 MG EC tablet Where to Get Your Medications These medications were sent to [facility]/pharmacy #[id number] [place] [id number] [facility] [place] [address] dextromethorphan-guaiFENesin 30-600 MG 12 hr tablet lactulose 10 GM/15ML solution Recommended Follow-up: Komla Cohn DO [address] [facility] [address] Schedule an appointment as soon as possible for a visit in 1 week(s) Hospital follow up Complexity of Follow up: [] Moderate Complexity: follow up within 7-14 calendar days (29684) [x] Severe Complexity: follow up within 7 calendar days (13558) Follow up Testing, Pending results or Referrals at Transitional Care Visit: [x] yes [] no Instructions to MA: Please call patient on day after discharge (must document patient contacted within 2 business days of discharge). Follow up questions for MA: 1. Did you get medications filled and taking them as instructed from discharge? 2. Are you following your discharge instructions from your hospital stay? 3. Please confirm patient is scheduled for a follow up appointment within the above time frame. Signed: Joni Gutierrez MD Division of Hospitalist Medicine [facility] 07/04/2024, 9:25 AM documented in this encounter [facility] 07-04-2024 Note [facility] 07-03-2024 Miscellaneous Notes Discussed with primary team attending Dr. Gutierrez today. Patient's condition improving. Patient planned for discharge to SNF. Since patient, family have clearly established goals, our team will sign off at this time. Pricilla Steinberg MD 07/03/24 8:53 PM Problem: Knowledge Deficit Goal: Patient/family/caregiver demonstrates understanding of disease process, treatment plan, medications, and discharge instructions Outcome: Progressing Problem: Potential for Compromised Skin Integrity Goal: Skin Integrity is Maintained or Improved Outcome: Progressing Goal: Nutritional status is improving Outcome: Progressing Problem: Urinary Incontinence Goal: Perineal skin integrity is maintained or improved Outcome: Progressing Problem: Problem Interventions Goal: Promote nutritional intake Outcome: Progressing Care Management Progress Note SW tried but unable to get trip to care home booked before 4:30 pm. Trips are now booking out to 5:30 pm. Trip now scheduled for tomorrow 07/04 @ 1000. Called Heidi the Liaison form [employer] to update her that transport will be rescheduled for tomorrow 07/04/24 @ 1000. Length of Stay (Days): 8 GMLOS: 3.2 Attempted to dc patient to [facility] this afternoon however the earliest picker operator in [employer] was for 5:30 and [facility] are unable to accept patients after 4;30. Rescheduled the transport for tomorrow 07/04 at 10;00 am. Voicemail message left for patients daughter to update her with tomorrows dc date and time. [facility] did try to reach out to [facility] rachid update. Care Management Progress Note PREDICTIVE MAINTENANCE TECHNICIAN takseyumiko to complete 7000 and send DC packet and MAR to [facility]. set up transport for 2:30 pm. Updated Danasicaro Gordon at [facility] at DC time. Length of Stay (Days): 8 GMLOS: 3.2 Patient Choice Patient Name: MIKEL WINSTON Date of : 1945 All Providers Sent Referral Name: [facility] Phone: [phone] Address: [address] [place] [address] Discharge med list transmitted to [facility] via [facility]port per TCC request. 7000 was entered into [place] [facility] for the SNF- FACILITY IS AWARE Care Management Progress Note Dr. Gutierrez and RN taking care of pt secure chatted that auth for SNF placement has been obtained and if pt is ready today then will need FAM completed. Will continue to follow. Length of Stay (Days): 8 GMLOS: 3.2 Problem: Knowledge Deficit Goal: Patient/family/caregiver demonstrates understanding of disease process, treatment plan, medications, and discharge instructions Outcome: Progressing Problem: Potential for Compromised Skin Integrity Goal: Skin Integrity is Maintained or Improved Outcome: Progressing Goal: Nutritional status is improving Outcome: Progressing Problem: Urinary Incontinence Goal: Perineal skin integrity is maintained or improved Outcome: Progressing Problem: Problem Interventions Goal: Promote nutritional intake Outcome: Progressing Problem: Neurosensory - Adult Goal: Achieves stable or improved neurological status Outcome: Progressing Problem: Hematologic - Adult Goal: Maintains hematologic stability Outcome: Progressing Problem: Potential for Falls Goal: I will remain free of falls Outcome: Progressing Problem: Discharge Barriers Goal: My discharge needs are met Outcome: Progressing Care Management Progress Note Received call from Rosa at [facility] and informed me that Precert has been obtained and good till 07/05/[address]. [address] Gutierrez and plan is to DC pt tomorrow. [facility] DCP: Pt to go to SNF tomorrow. Length of Stay (Days): 7 GMLOS: 3.2 Care Management Progress Note Spoke with Liaison From [facility] and they did accept pt. She wants updated PT/OT notes. PREDICTIVE MAINTENANCE TECHNICIAN tasked to send updated PT/OT notes so they can start precert auth on their end. Barrier to DC. Awaiting precert auth. Length of Stay (Days): 7 GMLOS: 3.2 Sent therapy notes to SNF [facility] via [facility]port per TCC request. Await review and response regarding ability to accept. TCC notified. Referral placed to [facility] via [facility] per TCC request. Await review and response regarding ability to accept. TCC notified. Care Management Progress Note Called to pt's room by principal secretary that pt wanted to speak to this TCC about SNF choice. Met with pt, introduced self and explained role. Pt's cellar hand and in the room. Pt gives this TCC permission to speak to them also about DC planning. Pt and cellar hand's Soheila Angulo [phone] want this TCC to make referral to [facility]. PREDICTIVE MAINTENANCE TECHNICIAN tasked to make referral. Pt does not have any further SNF choices. Informed her that I will get back to her. Also received call from [facility] liaison and he states pt is NOT [facility] appropriate at this time. Awaiting SNF acceptance then will need precert auth DCP; SNF when medically stable and authorization approved. . Length of Stay (Days): 7 GMLOS: 3.2 Problem: Knowledge Deficit Goal: Patient/family/caregiver demonstrates understanding of disease process, treatment plan, medications, and discharge instructions Outcome: Progressing Problem: Potential for Compromised Skin Integrity Goal: Skin Integrity is Maintained or Improved Outcome: Progressing Goal: Nutritional status is improving Outcome: Progressing Problem: Urinary Incontinence Goal: Perineal skin integrity is maintained or improved Outcome: Progressing Problem: Problem Interventions Goal: Promote nutritional intake Outcome: Progressing Problem: Neurosensory - Adult Goal: Achieves stable or improved neurological status Outcome: Progressing Problem: Hematologic - Adult Goal: Maintains hematologic stability Outcome: Progressing Problem: Potential for Falls Goal: I will remain free of falls Outcome: Progressing Problem: Discharge Barriers Goal: My discharge needs are met Outcome: Progressing Problem: Knowledge Deficit Goal: Patient/family/caregiver demonstrates understanding of disease process, treatment plan, medications, and discharge instructions 06/30/2024623 by Erika Trent RN Outcome: Progressing 06/30/2024 0610 by Erika Trent RN Outcome: Progressing Problem: Potential for Compromised Skin Integrity Goal: Skin Integrity is Maintained or Improved 06/30/2024 0624 by Erika Trent RN Outcome: Progressing 06/30/2024 0610 by Erika Trent RN Outcome: Progressing Goal: Nutritional status is improving 06/30/2024 0624 by Erika Trent RN Outcome: Progressing 06/30/2024 0610 by Erika Trent RN Outcome: Progressing Problem: Urinary Incontinence Goal: Perineal skin integrity is maintained or improved 06/30/2024 0624 by Erika Trent RN Outcome: Progressing 06/30/2024 0610 by Erika Trent RN Outcome: Progressing Problem: Problem Interventions Goal: Promote nutritional intake 06/30/2024623 by Erika Trent RN Outcome: Progressing 06/30/2024 0610 by Erika Trent RN Outcome: Progressing Problem: Neurosensory - Adult Goal: Achieves stable or improved neurological status 06/30/2024623 by Erika Trent RN Outcome: Progressing 06/30/2024609 by Erika Trent RN Outcome: Progressing Problem: Hematologic - Adult Goal: Maintains hematologic stability 06/30/2024623 by Erika Trent RN Outcome: Progressing Flowsheets (Taken 06/30/2024616) Maintains hematologic stability: Assess for signs and symptoms of bleeding or hemorrhage Monitor labs for bleeding or clotting disorders 06/30/2024609 by Erika Trent RN Outcome: Progressing Problem: Potential for Falls Goal: I will remain free of falls 06/30/2024623 by Erika Trent RN Outcome: Progressing 06/30/2024609 by Erika Trent RN Outcome: Progressing Problem: Discharge Barriers Goal: My discharge needs are met 06/30/2024623 by Erika Trent RN Outcome: Progressing 06/30/2024609 by Erika Trent RN Outcome: Progressing This TCC was finally able to make contact with dtr/PORyan Mortensen. Pt now downgraded to Medical, gave DC options to Arnel. Arnel would like to wait and see how pt does over the weekend before making a DC decision. She is ok with [facility], however she is hopeful for SNF placement and pt can stay closer to home. Will re-address Tuesday. TCC will continue to follow. Problem: Knowledge Deficit Goal: Patient/family/caregiver demonstrates understanding of disease process, treatment plan, medications, and discharge instructions Outcome: Progressing Problem: Potential for Compromised Skin Integrity Goal: Skin Integrity is Maintained or Improved Outcome: Progressing Goal: Nutritional status is improving Outcome: Progressing Problem: Urinary Incontinence Goal: Perineal skin integrity is maintained or improved Outcome: Progressing Problem: Problem Interventions Goal: Promote nutritional intake Outcome: Progressing Problem: Neurosensory - Adult Goal: Achieves stable or improved neurological status Outcome: Progressing Flowsheets (Taken 06/28/20242001) Achieves stable or improved neurological status: Monitor temperature, glucose, and sodium. Initiate appropriate interventions as ordered Problem: Hematologic - Adult Goal: Maintains hematologic stability Outcome: Progressing Flowsheets Taken 06/28/2024 2348 Maintains hematologic stability: Monitor labs for bleeding or clotting disorders Taken 06/28/20242001 Maintains hematologic stability: Monitor labs for bleeding or clotting disorders Problem: Knowledge Deficit Goal: Patient/family/caregiver demonstrates understanding of disease process, treatment plan, medications, and discharge instructions Outcome: Progressing Problem: Potential for Compromised Skin Integrity Goal: Skin Integrity is Maintained or Improved Outcome: Progressing Goal: Nutritional status is improving Outcome: Progressing Problem: Urinary Incontinence Goal: Perineal skin integrity is maintained or improved Outcome: Progressing Problem: Problem Interventions Goal: Promote nutritional intake Outcome: Progressing Problem: Neurosensory - Adult Goal: Achieves stable or improved neurological status Outcome: Progressing Flowsheets Taken 06/28/2024 1825 Achieves stable or improved neurological status: Monitor temperature, glucose, and sodium. Initiate appropriate interventions as ordered Taken 06/28/2024 1229 Achieves stable or improved neurological status: Monitor temperature, glucose, and sodium. Initiate appropriate interventions as ordered Taken 06/28/2024 0857 Achieves stable or improved neurological status: Monitor temperature, glucose, and sodium. Initiate appropriate interventions as ordered Assess for and report changes in neurological status Problem: Hematologic - Adult Goal: Maintains hematologic stability Outcome: Progressing Flowsheets Taken 06/28/2024 1825 Maintains hematologic stability: Monitor labs for bleeding or clotting disorders Taken 06/28/2024 1229 Maintains hematologic stability: Monitor labs for bleeding or clotting disorders Taken 06/28/2024 0857 Maintains hematologic stability: Monitor labs for bleeding or clotting disorders Images from the original note were not included. [facility] Palliative Care Transitions of Care Note Mikel Winston : 1945 ADMIT DATE: 06/25/2024 DISCHARGE DATE: TBD PRIMARY CARE PHYSICIAN: KOMAL COHN DO CODE STATUS: DNR-CCA DISCHARGE DIAGNOSES: Principal Problem: Acute cystitis with hematuria HOSPITAL COURSE: Mikel Winston is a 78 y.o. female with PMHx of CAD S/P CABG 2009, PCI 2017, S/P PPM, DM2, HTN, Cirrhosis of the liver who was admitted to [facility] on 06/25 with complain of altered mental status. Patient had Rapid response called at 4.30 am on 06/26 as she was not responding to any verbal stimuli. Patient was transferred to ICU. Acute encephalopathy - multifactorial likely due to combination of hepatic encephalopathy, UTI - mental status improving, patient AxOx2-3 today Dysphagia - cleared by INTERNET RETAILER for adult easy to chew food GI Bleeding - patient seen by GI services on 06/27, per notes follow Hb and transfuse, continue PPI BID E Coli UTI - remains on IV rocephin BARRY on CKD 3 - resolving - creatinine 1.40 on admission, today 1. 25 - remains on IV fluids Cirrhosis of the liver - on admission ammonia was 134, today < 9 Second degree HB s/p PPM CODE STATUS DISCUSSIONS: - patient seen this morning, patient was awake, alert, oriented X2-3 - met with daughter in law at bedside - patient and family's goal at this time is to get better - Code status remains DNRCCA - provided empathetic listening and emotional support to patient and family - updated ICU attending Dr. Stringer - will continue to have ongoing goals of care conversations with family SYMPTOM MANAGEMENT MEDICATIONS: - not prescribed by our team DISPOSITION: TBD Follow up with PCP Opiate Prescribing Not prescribed by our team SIGNED: Pricilla Steinberg MD 06/28/2024, 8:52 AM Problem: Knowledge Deficit Goal: Patient/family/caregiver demonstrates understanding of disease process, treatment plan, medications, and discharge instructions Outcome: Progressing Problem: Potential for Compromised Skin Integrity Goal: Skin Integrity is Maintained or Improved Outcome: Progressing Problem: Potential for Compromised Skin Integrity Goal: Nutritional status is improving Outcome: Progressing Problem: Urinary Incontinence Goal: Perineal skin integrity is maintained or improved Outcome: Progressing Problem: Neurosensory - Adult Goal: Achieves stable or improved neurological status Outcome: Not Progressing Problem: Neurosensory - Adult Goal: Achieves stable or improved neurological status Flowsheets (Taken 06/27/20241748) Achieves stable or improved neurological status: Monitor temperature, glucose, and sodium. Initiate appropriate interventions as ordered Assess for and report changes in neurological status Problem: Hematologic - Adult Goal: Maintains hematologic stability Flowsheets (Taken 06/27/20241748) Maintains hematologic stability: Assess for signs and symptoms of bleeding or hemorrhage Monitor labs for bleeding or clotting disorders Administer blood products/factors as ordered Pt still lethargic and only arousable to noxious stimuli. Awaiting Palliative Care Cons prior to IA being completed. TCC will continue to follow. Problem: Potential for Compromised Skin Integrity Goal: Skin Integrity is Maintained or Improved Outcome: Progressing Goal: Nutritional status is improving Outcome: Progressing Problem: Urinary Incontinence Goal: Perineal skin integrity is maintained or improved Outcome: Progressing Problem: Problem Interventions Goal: Promote nutritional intake Outcome: Progressing Problem: Knowledge Deficit Goal: Patient/family/caregiver demonstrates understanding of disease process, treatment plan, medications, and discharge instructions Outcome: Not Progressing Problem: Urinary Incontinence Goal: Perineal skin integrity is maintained or improved Outcome: Not Progressing WAREHOUSE OPERATIONS ASSOCIATE paged for decline in mental status. Per primary RN, pt was opening eyes to verbal stimuli previously in the shift, but is now only responding to painful stimuli. VSS. Pupils 2mm, equal and reactive to light. Pt also with several episodes of bloody stool, and one episode of emesis during rapid response. Dr. Keri at bedside. IV Zofran given per order. Labs drawn and sent. Pt then taken to CT scan by this RN and primary RN. Pt to remain on GMF at this time. documented in this encounter [facility] 07-03-2024 Nurse Note Report called to [facility]. Pt transport is scheduled for 2:30pm. Patient was informed that her catheter needed to be removed per Doctors order. Patient currently has family visiting and is eating dinner and would like to wait until later. Patient was asked to call the nurse when she was ready for it to be removed. documented in this encounter [facility] 07-03-2024 Hospital Discharge instructions Joni Gutierrez MD - 07/03/2024 7:52 AM EST Images from the original note were not included. Continuity of Care Form Patient Name: Mikel Winston : 1945 Admit date: 06/25/2024 Discharge date: 07/03/24 Code Status Order: DNR-CCA Advance Directives: N Admitting Physician: Erinn Santoro MD PCP: KOMAL COHN DO Discharging Nurse: Kelly Cunningham RN Discharging Hospital Unit/Room#: B2-249/B2-249 A Discharging Unit Phone Number: Emergency Contact: Extended Emergency Contact Information Primary Emergency Contact: Jann,Arnel Mobile Relation: Child Secondary Emergency Contact: Russell Winston Mobile Relation: Child Past Surgical History: Past Surgical History: Procedure Laterality Date APPENDECTOMY CARDIAC ELECTROPHYSIOLOGY PROCEDURE N/A 05/31/2024 Performed by Pravin Poole MD at [facility] Cardiac Cath/EP Lab CHOLECYSTECTOMY CORONARY ARTERY BYPASS GRAFT TOTAL KNEE ARTHROPLASTY Right TUBAL LIGATION Immunization History: Immunization History Administered Date(s) Administered Influenza, High Dose Seasonal, Preservative Free 03/28/2017 Moderna SARS-CoV-2 Vaccination 04/15/2021 Pneumococcal Conjugate PCV 13 02/25/2017 Active Problems: Medical Problems Problem List * (Principal) Acute cystitis with hematuria Angina at rest (HCC) Generalized edema Diabetes (HCC) Coronary artery disease involving coronary bypass graft of [place] heart without angina pectoris Nonrheumatic aortic valve stenosis Essential hypertension Dyslipidemia BARRY (acute kidney injury) (HCC) UTI (urinary tract infection) Cellulitis of right lower extremity Symptomatic sinus bradycardia Isolation/Infection: No active isolations No active infections Nurse Assessment: Last Vital Signs: BP 112/55 (BP Location: Right arm, Patient Position: Lying) Pulse 78 Temp 36.3 C (97.3 F) (Temporal) Resp 17 Ht 1.626 m (5' 4) SpO2 99% BMI 36.56 kg/m Last documented pain score (0-10 scale): Last Weight: Wt Readings from Last 1 Encounters: 05/29/24 96.6 kg (213 lb) Mental Status: FAM Patient Mental Status: oriented, alert, and forgetful at times IV Access: FAM IV Access: None Nursing Mobility/ADLs: Walking Minimal assistance Transfer Minimal assistance Bathing Minimal assistance Dressing Minimal assistance Toileting Total assistance Feeding Minimal assistance Mechanical Test Engineer Minimal assistance Med Delivery yes Wound Care Documentation and Therapy: Wound/Incision 05/31/24 Chest Left (Active) Number of days: 32 Elimination: Continence: Bowel: no Bladder: no Urinary Catheter: None Colostomy/Ileostomy/Ileal Conduit: None Date of Last BM: 07/03/24 Intake/Output Summary (Last 24 hours) at 07/03/2024 0750 Last data filed at 07/03/2024 0421 Gross per 24 hour Intake 1360 ml Output 350 ml Net 1010 ml I/O last 3 completed shifts: In: 5675 [P.O.:700; I.V.:4975] Out: 1350 [Urine:1350] Safety Concerns: at risk for falls Impairments/Disabilities: none Nutrition Therapy: Current Nutrition Therapy: Oral diet: general Routes of Feeding: oral Liquids: no restrictions Daily Fluid Restriction: no Last Modified Barium Swallow with Video (Video Swallowing Test): not done Treatments at the Time of Hospital Discharge: Respiratory Treatments: none Oxygen Therapy: is not on home oxygen therapy. Ventilator: No ventilator support Rehab Therapies: physical therapy and occupational therapy Weight Bearing Status/Restrictions: no restriction Other Medical Equipment (for information only, NOT a DME order): bedside commode, walker, and shower chair Other Treatments: Patient's personal belongings (please select all that are sent with patient): clothing, personal items RN SIGNATURE: MANAGEMENT/SOCIAL WORK SECTION Inpatient Status Date: 06/25/24 Discharging to Facility/ Agency Name: [facility] Address: [address] [place] [address] Fax: Dialysis Facility (if applicable) Name: Address: Dialysis Schedule: Phone: Fax: Kiln Door Builder/Metal Buildings Assembler signature: ICIAN SECTION Name: Mikel Winston Prognosis: fair Condition at Discharge: stable Rehab Potential (if transferring to Rehab): fair Recommended Labs or Other Treatments After Discharge: CMP, CBC and ammonia levels every 3 days The individual is being admitted to a nursing facility directly from an [facility] or a unit of a [facility] that is not operated by or licensed by [facility] under section 5119.14 or 5160-3-15.1 5 The individual requires the level of services provided by a nursing facility for the condition for which he or she was treated in the hospital and, Physician Certification: I certify the above information and transfer of Mikel Winston is necessary for the continuing treatment of the diagnosis listed and that she requires shelter facility for less than 30 days. Update Admission H&P: No change in H&P PHYSICIAN SIGNATURE: The following attachments cannot be sent through Care Everywhere.Acute Cystitis Discharge Instructions (Czech)Ammonia Blood Test (Czech)documented in this encounter [facility] 07-02-2024 Note Referral placed to [facility] via [facility] per TCC request. Await review and response regarding ability to accept. TCC notified. [facility] 06-28-2024 Consult note Associated Order (s): IP CONSULT TO PALLIATIVE CARE Images from the original note were not included. Palliative Care Initial Consult Chief Complaint: Mikel Winston is a 78 y.o. female with chief complaint of altered mental status Palliative care consulted for goals of care Palliative Care is actively following. Assessment/Plan Goals of care - patient seen this morning, patient unresponsive - met with patient's grandson Sukhjinder in ICU conference room this morning, introduced self and role - Sukhjinder stated that patient is , lost her in 2013 - stated patient has been independent, had been able to take care of herself until recently - stated patient has 1 daughter Arnel who is patient's HCPOA ([phone]) and has 3 sons - Sukhjinder stated that patient 13 great grandchildren and they are the love of her life, she enjoys spending time with them - Sukhjinder stated patient is very much involved with her faith, loved doing [employer] - Sukhjinder stated that his aunt Arnel is at work but they will communicate, stated at this time family is hopeful that she will wake up - Code status already DNRCCA - provided empathetic listening and emotional support to Sukhjinder - updated ICU attending Dr. Stringer - will continue to have ongoing goals of care conversations with family Acute encephalopathy - multifactorial likely due to combination of hepatic encephalopathy, UTI - patient receiving lactulose via NG Dysphagia - patient on NG feeding GI Bleeding - patient seen by GI services on 06/27, per notes follow Hb and transfuse, continue PPI BID E Coli UTI - remains on IV rocephin BARRY on CKD 3 - creatinine 1.40 on admission, today 1.43 - remains on IV fluids Cirrhosis of the liver - on admission ammonia was 134, today 27 Second degree HB s/p PPM Palliative Care Encounter - will continue to follow for ongoing monitoring of progression of Dyspnea, Pain, and Constipation as well as for appropriateness for hospice care due to Dysphagia - will continue to evaluate test results related to Dysphagia, medication effectiveness for Dyspnea, Pain, and Constipation, response to treatment of Dysphagia - obtaining testing as needed to monitor medication results:N/A Total of 85 minutes spent on this encounter including Chart review, Patient visit and exam, Documentation in EHR, Care coordination, and Communicating with primary attending or other consultants. Discharge planning: Not ready for discharge due to ongoing goals of care discussion Patient meets criteria for general inpatient hospice care including the following: N/A - Palliative Care Patient Referrals to: None Discussed patient and the plan of care with the other interdisciplinary team (IDT) members of Palliative Care Team, and with Primary Attending and Family Insert attestation statement here if applicable (.disupervision) or (.npattest) Subjective: Hospital days prior to consult: 3 days Trauma Consult: no. (If yes, please add .traumapall dotphrase for tracking purposes.) Subjective/Events Mikel Winston is a 78 y.o. female with PMHx of CAD S/P CABG 2009, PCI 2017, S/P PPM, DM2, HTN, Cirrhosis of the liver who was admitted to [facility] on 06/25 with complain of altered mental status. Patient had Rapid response called at 4.30 am on 06/26 as she was not responding to any verbal stimuli. Patient was transferred to ICU. Pain Assessment (If Pain Scale >0) Description: N/A - Patient is Nonverbal Advance Care Planning Advanced Care Planning Conversation Pertinent Diagnosis/es: Acute encephalopathy Dysphagia BARRY on CKD GI Bleed Cirrhosis of the liver The patient and/or surrogate consented to a voluntary Advance Care Planning conversation. Mikel Winston lacks capacity for medical decision-making due to non-responsive. Individuals present included: Grandnimisha Slaughter . Summary of the conversation: Please see A and P Outcome of the conversation: Please see A and P Advance Directives were explained including HCPOA, Living Will and/or DNR. This is the first significant conversation I have had with this patient about advanced care planning. I spent 85 minutes providing separately identifiable ACP services with the patient and/or surrogate decision maker in a voluntary conversation discussing the patient's goals, values, and preferences as detailed in the note above. Pricilla Steinberg MD Time-based code 21414 for 16-45 minutes. Add-on code 09998 at 46 minutes and each additional 30 minutes. Goals of care:Continue Current Management Functional Assessment: PPS: 50% Advance Directives: DNR-CCA Surrogate: Child and HCPOA Prognosis: depends upon goals Spiritual assessment: No spiritual distress identified Bereavement and grief: To Be Determined Past Medical History: Diagnosis Date CAD (coronary artery disease) Cirrhosis of liver (HCC) Diabetes mellitus (HCC) Hypertension Osteoporosis Thyroid disease Past Surgical History: Procedure Laterality Date APPENDECTOMY CARDIAC ELECTROPHYSIOLOGY PROCEDURE N/A 05/31/2024 Performed by Pravin Poole MD at [facility] Cardiac Cath/EP Lab CHOLECYSTECTOMY CORONARY ARTERY BYPASS GRAFT TOTAL KNEE ARTHROPLASTY Right TUBAL LIGATION Family History Problem Relation Name Age of Onset Stroke Father's Brother Diabetes Father Mental illness Mother Coronary artery disease Brother Unable to obtain family history due to patient unresponsive Allergies Allergen Reactions Trever Lamb Review of Systems ROS: See palliative care ROS/ESAS below; Detail ROS unable to be obtained due to patient's mental status [place]ane Symptom Assessment Score [place]fane Score Pain Score 0 per FLACC Tiredness Score 10 Nausea Score 0 Depression Score 0 Anxiety Score 0 Drowsiness Score 10 Anorexia Score (0= eating well, 10= not eating) 10, NG feeding Wellbeing Score (10= worst sense of well-being) 10 Constipation 0 Dyspnea Score (0= no shortness of breath) 0 FLACC Scale (For Pain Assessment of the Non-Verbal Patient) Face: 0- no particular expression Legs: 0- normal position or relaxed Activity: 0-lying quietly, moves easily Cry: 0-no cry Consolability:0-content, relaxed Total Score: 0 Assessed by: provider. Social history: [place] status: no Marital status: Living status: alone Work history: retired, worked in [employer] Family Meeting: Participants: extended family Family meeting was held to discuss:Diagnosis and Prognosis, Goals of Care, and Advanced Care Planning Objective: Physical Exam BP (!) 164/83 Pulse 111 Temp 37 C (98.6 F) (Axillary) Resp 24 Ht 5' 4 (1.626 m) SpO2 100% BMI 36.56 kg/m Physical Exam Constitutional: Appearance: She is ill-appearing. HENT: Head: Normocephalic and atraumatic. Right Ear: External ear normal. Left Ear: External ear normal. Nose: Nose normal. Comments: NG present Mouth/Throat: Mouth: Mucous membranes are moist. Eyes: General: Right eye: No discharge. Left eye: No discharge. Conjunctiva/sclera: Conjunctivae normal. Pupils: Pupils are equal, round, and reactive to light. Cardiovascular: Rate and Rhythm: Normal rate and regular rhythm. Pulses: Normal pulses. Heart sounds: Normal heart sounds. No murmur heard. Pulmonary: Breath sounds: No stridor. No wheezing. Comments: Bilateral basal crackles present Abdominal: General: Bowel sounds are normal. Palpations: Abdomen is soft. Musculoskeletal: General: No swelling. Cervical back: Normal range of motion and neck supple. Right lower leg: No edema. Left lower leg: No edema. Skin: General: Skin is warm. Coloration: Skin is not jaundiced. Neurological: Comments: No response to stimuli Psychiatric: Comments: No agitation Current Medications: Inpatient medications reviewed: yes Home medications reviewed: yes OARRS Reviewed: No Report Available 24 Hour PRN Meds: no PRN medications in 24 hours Results/Verification of Data Review Objective data reviewed (be specific which labs, imaging reports with dates reviewed): - labs, imaging, OARRS reviewed 06/28/24 Data in Support of Terminal Illness: Is patient hospice appropriate? TBD Transition Note Initiated: yes. Associated Order(s): Inpatient consult to Gastroenterology Images from the original note were not included. GASTROENTEROLOGY INITIAL CONSULTATION NOTE 06/26/2024 Patient: Mikel Winston : 1945 Primary Care Physician: KOMAL COHN DO Inpatient consult to Gastroenterology Consult performed by: Bre Sparks MD Consult ordered by: Fadia Stringer MD CONSULT QUESTION: Melena, anemia, h/o cirrhosis HISTORY OF PRESENT ILLNESS: Mikel Winston is a 78 y.o. female with a PMH significant for CAD s/p CABG and PM, DM, HTN, CKD, thyroid disease, MASH ? Cirrhosis who was brought to the ED by family with AMS. She was reportedly in her normal state of health until 11 AM the day of admission when she apparently dropped a call while talking to her daughter on the phone. Her daughter subsequently could not reach her and then her granddaughter went over to her house around 3 PM and found the patient confused and slumped over in a chair. After admission, patient was found to have a decline in her mental status, only responding to painful stimuli at this time. Rapid response was called and she was transferred to the ICU for further evaluation. Head CT was negative for acute pathology. She reportedly also had several episodes of bloody stool, not further characterized and one episode of emesis. GI consulted regarding concern for blood stools and elevated ammonia. According to family, there was reportedly a episode of melena earlier in the week and she has been complaining of general GI upset with nausea and diarrhea over past day. Hgb on admission was 9 to 7.9. MCV normal to slightly high. Baseline hgb appears to be 9.5-11. No further bleeding today. 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 CT abd/pelvis with mild morphologic features of cirrhosis. LFTs are all WNL INR normal, platelets seem chronically low. CT scan with no acute intraabdominal or pelvic abnormalities. Labs pertinent for elevated troponins, UA c/w UTI and ammonia elevated at 134. Had a colonoscopy 05/09/2012, but not sure if she has had procedures in the interim. REVIEW OF SYSTEMS: Unable to obtain as patient is obtunded PAST MEDICAL HISTORY: Past Medical History: Diagnosis Date CAD (coronary artery disease) Cirrhosis of liver (HCC) Diabetes mellitus (HCC) Hypertension Osteoporosis Thyroid disease PAST SURGICAL HISTORY: Past Surgical History: Procedure Laterality Date APPENDECTOMY CARDIAC ELECTROPHYSIOLOGY PROCEDURE N/A 05/31/2024 Performed by Pravin Poole MD at [facility] Cardiac Cath/EP Lab CHOLECYSTECTOMY CORONARY ARTERY BYPASS GRAFT TOTAL KNEE ARTHROPLASTY Right TUBAL LIGATION SOCIAL HISTORY: , lives independently Never a smoker Denies alcohol use No illicit drug use FAMILY HISTORY: Family History Problem Relation Name Age of Onset Stroke Father's Brother Diabetes Father Mental illness Mother Coronary artery disease Brother MEDICATIONS: Prior to Admission medications Medication Sig Start Date End Date Taking? Authorizing Provider alpha tocopherol (Vitamin E) 100 units capsule Take 100 Units by mouth daily. Historical ProviderMD aspirin 81 MG EC tablet Take 81 mg by mouth daily. Historical Provider, Cholecalciferol (Vitamin D) 125 MCG (5000 UT) capsule Take 5,000 Units by mouth daily. Historical Provider, cholecalciferol (Vitamin D3) 200 Unit tablet split tablet Take 5,000 Units by mouth daily. Historical Provider, cyanocobalamin (Vitamin B-12) 100 MCG tablet Take 100 mcg by mouth daily. Historical Provider, ferrous sulfate 325 (65 Fe) MG tablet Take 325 mg by mouth daily (with breakfast). Historical Provider, furosemide (Lasix) 20 MG tablet 3 days in a row Patient taking differently: Take 20 mg by mouth Daily as needed (pt decides prn based on swelling BLE). 3 days in a row 03/14/24 Jose Joel MD levothyroxine (Synthroid, Levoxyl) 50 MCG tablet TAKE 1 TABLET BY MOUTH DAILY 12/22/21 03/30/23 Nguyen Mclaughlin MD rosuvastatin (Crestor) 20 MG tablet Take 1 tablet (20 mg) by mouth daily. 03/14/24 Jose Joel MD SITagliptin (Januvia) 25 MG tablet Take 1 tablet (25 mg) by mouth daily. 02/02/24 02/01/25 Terence Gonzalez MD trolamine salicylate (Aspercreme) 10 % cream Apply topically every 8 hours as needed (for muscle pain). 06/01/24 06/01/25 Kyung Hogan APRN - CARDIOVASCULAR DISEASE SPECIALIST Current Facility-Administered Medications Medication Dose Route Frequency Provider Last Rate Last Admin acetaminophen (Tylenol) tablet 650 mg 650 mg Oral q6h PRN Fadia Stringer MD Or acetaminophen (Tylenol) suppository 650 mg 650 mg Rectal q6h PRN Fadia Stringer MD aspirin EC tablet 81 mg 81 mg Oral Daily Faida Stringer MD cefTRIAXone (Rocephin) 1,000 mg in sodium chloride 0.9 % 50 mL IVPB Mini-Bag Plus 1,000 mg IntraVENous q24h Fadia Stringer MD Stopped at 06/26/24 1745 cholecalciferol (Vitamin D-3) tablet 5,000 Units 5,000 Units Oral Daily Fadia Stringer MD cyanocobalamin (Vitamin B-12) tablet 100 mcg 100 mcg Oral Daily Fadia Stringer MD dextrose 5 % infusion 100 mL/hr IntraVENous PRN Fadia Stringer MD dextrose 50 % solution 12.5 g 12.5 g IntraVENous PRN Fadia Stringer MD ferrous sulfate tablet 325 mg 325 mg Oral Daily with breakfast Fadia Stringer MD glucagon (human recombinant) injection 1 mg 1 mg IntraMUSCular PRN Fadia Stringer MD glucose oral gel 15 g 15 g Oral PRN Fadia Stringer MD influenza vaccine A&B surf ant adjuvanted (Fluad) HIGH-DOSE injection 0.5 mL 0.5 mL IntraMUSCular Prior to discharge Fadia Stringer MD Insulin Lispro (Humalog) injection 0-12 Units 0-12 Units SubCUTAneous q6h Fadia Stringer MD 2 Units at 06/26/24 1719 ipratropium-albuterol (Duo-Neb) 0.5-2.5 mg/3 mL nebulizer solution 3 mL 3 mL Nebulization TID Fadia Stringer MD 3 mL at 06/26/24 1527 lactulose (Chronulac) 10 GM/15ML solution 20 g 20 g Oral TID Fadia Stringer MD 20 g at 06/26/24 1437 levothyroxine (Synthroid, Levoxyl) tablet 50 mcg 50 mcg Oral qAM AC Fadia Stringer MD linaGLIPtin (Tradjenta) tablet 5 mg 5 mg Oral Daily Fadia Stringer MD ondansetron ODT (Zofran-ODT) disintegrating tablet 4 mg 4 mg Oral q8h PRN Fadia Stringer MD Or ondansetron (Zofran) injection 4 mg 4 mg IntraVENous q6h PRN Fadia Stringer MD 4 mg at 06/26/24 0512 pantoprazole (ProtoNix) EC tablet 40 mg 40 mg Oral Nightly Fadia Stringer MD Or pantoprazole (ProtoNix) 40 mg in sodium chloride (PF) 0.9 % 10 mL injection 40 mg IntraVENous Nightly Fadia Stringer MD polyethylene glycol (PEG) 3350 (Miralax) packet 17 g 17 g Oral Daily PRN Fadia Stringer MD rosuvastatin (Crestor) tablet 20 mg 20 mg Oral Daily Fadia Stringer MD sodium chloride 0.9 % infusion 5-250 mL/hr IntraVENous PRN Fadia Stringer MD sodium chloride 0.9 % infusion 50 mL/hr IntraVENous Continuous Fadia Stringer MD 50 mL/hr at 06/25/24 1848 50 mL/hr at 06/25/24 1848 sodium chloride 0.9 % infusion 250 mL/hr IntraVENous PRN Fadia Stringer MD sodium chloride 0.9 % infusion 250 mL/hr IntraVENous PRN Donna Del Angel, MACHINE TESTER - CARDIOVASCULAR DISEASE SPECIALIST sodium chloride 0.9% (NS) flush 5-40 mL 5-40 mL IntraVENous q12h Fadia Stringer MD sodium chloride 0.9% (NS) flush 5-40 mL 5-40 mL IntraVENous PRN Fadia Stringer MD ALLERGIES: Allergies Allergen Reactions Codeine Hives OBJECTIVE: Vitals: Vitals: 06/26/24 1527 06/26/24 1603 06/26/24 1646 06/26/24 1702 BP: (!) 108/48 134/56 (!) 119/48 BP Location: Patient Position: Pulse: 107 109 116 114 Resp: 17 19 15 15 Temp: TempSrc: SpO2: 100% 100% 100% 100% Height: General appearance: Obtunded, non-responsive HEENT: NC/AT Neck: Supple Respiratory: Normal respiratory effort. Cardiovascular: Regular rate and rhythm Abdomen: Soft, non-tender, non-distended Skin: Skin color, texture, turgor normal. No rashes or lesions. Neurologic: Non-responsive LABS: CBC: Recent Labs 06/25/24 1738 06/26/24 0310 06/26/24 0513 06/26/24 0608 06/26/24 0817 06/26/24 1146 06/26/24 1711 WBC 5.5 6.6 7.9 -- -- -- -- RBC 2.89* 2.61* 2.70* -- -- -- -- HGB 9.0* 7.9* 8.5* 8.5* 8.6* 8.1* 7.9* HCT 27.7* 25.3* 27.2* 27.2* -- 25.7* 24.6* MCV 95.8 96.9 100.7* -- -- -- -- RDW 14.6 14.6 15.0 -- -- -- -- PLT 119* 106* 127* -- -- -- -- BMP: Recent Labs 06/25/24173706/26/24 0513 06/26/24 0852 NA 141 142 142 K 3.6 3.9 3.8 CL 114* 116* 117* CO2 21* 19* 18* BUN 37* 42* 42* CREATININE 1.40* 1.39* 1.34* GLUCOSE 147* 155* 156* CALCIUM 9.7 9.4 9.4 ANIONGAP 7 7 7 LIVER PROFILE: Recent Labs 06/25/24173706/26/24 0513 06/26/24 0852 AST 45 43 44 ALT 21 21 21 BILITOT 0.9 0.8 0.8 ALKPHOS 89 74 74 PROT 6.7 6.3 6.1* PT/INR: Recent Labs 06/25/241737 PROTIME 13.2* INR 1.2* IMAGING/PROCEDURES === 06/25/24 === CT ABDOMEN PELVIS WO IV CONTRAST - Impression - 1. No evidence of small bowel obstruction. 2. No CT evidence of acute intra-abdominal/pelvic abnormality. 3. Mild morphologic features of cirrhosis. 4. Perisplenic and left perirenal varices. 5. Atherosclerosis. Report Dictated on Electronically Signed By: Paul Garcia MD Electronically Signed Date/Time: 06/26/2024 8:04 AM EST IMPRESSION Mikel Winston is a 78 y.o. female with a PMH significant for CAD s/p CABG and PM, DM, HTN, CKD, thyroid disease, MASH cirrhosis who was brought to the ED by family with AMS after being found down. Reports of N/V and diarrhea prior. Found to have elevated troponins and UTI on admission. Mental status worsened after admission and now she is unresponsive. Had bloody stools overnight, none since. Hgb stable since admission, down 1-2 grams from baseline. Patient with cirrhosis on problem list, but no mention of it on prior hospitalizations or on PCP's progress notes. Ammonia elevated at 134. H/o colonoscopy in 2011. Neurologic work-up negative for stroke and seizure. EEG c/w moderate to severe toxic metabolic encephalopathy Problem List: [facility] cirrhosis - no notes in chart, seen on CT scan, LFTs WNL, INR normal but thrombocytopenia noted. MELD 3.0 is 12 High ammonia - may be hepatic encephalopathy, but has never had decompensated liver disease in the past. Hyperammonemia can also be seen with UTI with Proteus, renal disease, GI bleed, and medications. AMS - Neuro work-up negative thus far, suspect metabolic, has had delirium related to UTI's in the past GI symptoms - may have acute gastroenteritis vs other GI illness. GIB - no further bleeding since admission, unclear etiology, may be upper or lower, ddx PUD, varices, esophagitis/gastritis, diverticula, AVMs, ischemic, colitis. RECOMMENDATIONS - Continue supportive care for now - Agree with plan for [place]hoff with lactulose to treat possible hepatic encephalopathy - Follow serial hemoglobin, transfuse to keep between 7-9, would not over transfuse in case she does have esophageal varices - Continue PPI IV BID - If she does have diarrhea, send infectious work-up with stool PCR, C.diff - Consider EGD for further work-up - Follow MELD labs: alb, Na, TB, Cr, INR - Continue neuro work-up - Continue treatment for UTI - Recommend US with dopplers It has been a pleasure to participate in the care of this patient. Please do not hesitate to call with any questions. Bre Sparks MD Images from the original note were not included. Internal Medicine: MICU Initial Consult Name: Mikel Winston : 1945(78 y.o.) Date: 06/26/24 Attending: Dr. Stringer Subjective: Chief Complaint: Mental status GI bleed HPI: 78-year-old female with past medical history significant for coronary artery disease, type 2 diabetes, hypertension admitted via emergency room for altered mental status, overnight patient has had worsening mental status patient had a CT head done earlier this morning which was unremarkable for acute events patient also had episodes of nausea and vomiting overnight and has had bloody bowel movements rapid response was called at 4:30 AM as patient was not responding to any verbal stimuli Past Medical History: Diagnosis Date CAD (coronary artery disease) Cirrhosis of liver (HCC) Diabetes mellitus (HCC) Hypertension Osteoporosis Thyroid disease Past Surgical History: Procedure Laterality Date APPENDECTOMY CARDIAC ELECTROPHYSIOLOGY PROCEDURE N/A 05/31/2024 Performed by Pravin Poole MD at [facility] Cardiac Cath/EP Lab CHOLECYSTECTOMY CORONARY ARTERY BYPASS GRAFT TOTAL KNEE ARTHROPLASTY Right TUBAL LIGATION Family History Problem Relation Name Age of Onset Stroke Father's Brother Diabetes Father Mental illness Mother Coronary artery disease Brother Social History Socioeconomic History Marital status: Spouse name: Not on file Number of children: Not on file Years of education: Not on file Highest education level: Not on file Occupational History Not on file Tobacco Use Smoking status: Never Smokeless tobacco: Never Substance and Sexual Activity Alcohol use: No Drug use: No Sexual activity: Not Currently Other Topics Concern Not on file Social History Narrative Not on file Social Drivers of Health Financial Resource Strain: Medium Risk (01/28/2024) Overall Financial Resource Strain (CARDIA) Difficulty of Paying Living Expenses: Somewhat hard Food Insecurity: No Food Insecurity (06/01/2024) Hunger Vital Sign Worried About Running Out of Food in the Last Year: Never true Ran Out of Food in the Last Year: Never true Transportation Needs: Patient Unable To Answer (06/25/2024) PRAPARE - Transportation Lack of Transportation (Medical): Patient unable to answer Lack of Transportation (Non-Medical): Patient unable to answer Physical Activity: Insufficiently Active (01/28/2024) Exercise Vital Sign Days of Exercise per Week: 2 days Minutes of Exercise per Session: 10 min Stress: Stress Concern Present (01/28/2024) [place] [employer] - Occupational Stress Questionnaire Feeling of Stress : To some extent Social Connections: Moderately Integrated (01/28/2024) Social Connection and Isolation Panel [NHANES] Frequency of Communication with Friends and Family: More than three times a week Frequency of Social Gatherings with Friends and Family: More than three times a week Attends Nondenominational Services: More than 4 times per year Active Member of Clubs or Organizations: No Attends Club or Organization Meetings: Never Marital Status: Intimate Partner Violence: Patient Unable To Answer (06/25/2024) Humiliation, Afraid, Rape, and Kick questionnaire Fear of Current or Ex-Partner: Patient unable to answer Emotionally Abused: Patient unable to answer Physically Abused: Patient unable to answer Sexually Abused: Patient unable to answer Housing Stability: Patient Unable To Answer (06/25/2024) Housing Stability Vital Sign Unable to Pay for Housing in the Last Year: Patient unable to answer Number of Times Moved in the Last Year: Not on file Homeless in the Last Year: Patient unable to answer Allergies Allergen Reactions Codeine Hives Prior to Admission medications Medication Sig Start Date End Date Taking? Authorizing Provider alpha tocopherol (Vitamin E) 100 units capsule Take 100 Units by mouth daily. Historical Provider, aspirin 81 MG EC tablet Take 81 mg by mouth daily. Historical Provider, Cholecalciferol (Vitamin D) 125 MCG (5000 UT) capsule Take 5,000 Units by mouth daily. Historical Provider, cholecalciferol (Vitamin D3) 200 Unit tablet split tablet Take 5,000 Units by mouth daily. Historical Provider, cyanocobalamin (Vitamin B-12) 100 MCG tablet Take 100 mcg by mouth daily. Historical Provider, ferrous sulfate 325 (65 Fe) MG tablet Take 325 mg by mouth daily (with breakfast). Historical Provider, furosemide (Lasix) 20 MG tablet 3 days in a row Patient taking differently: Take 20 mg by mouth Daily as needed (pt decides prn based on swelling BLE). 3 days in a row 03/14/24 Jose Joel MD levothyroxine (Synthroid, Levoxyl) 50 MCG tablet TAKE 1 TABLET BY MOUTH DAILY 12/22/21 03/30/23 Nguyen Mclaughlin MD rosuvastatin (Crestor) 20 MG tablet Take 1 tablet (20 mg) by mouth daily. 03/14/24 Jose Joel MD SITagliptin (Januvia) 25 MG tablet Take 1 tablet (25 mg) by mouth daily. 02/02/24 02/01/25 Terence Gonzalez MD trolamine salicylate (Aspercreme) 10 % cream Apply topically every 8 hours as needed (for muscle pain). 06/01/24 06/01/25 Kyung Hogan APRN - CARDIOVASCULAR DISEASE SPECIALIST Objective: Oxygen Delivery: VITALS: BP 151/63 (BP Location: Left arm, Patient Position: Sitting) Pulse 99 Temp 36.8 C (98.2 F) (Temporal) Resp 16 SpO2 98% CURRENT PULSE OXIMETRY: SpO2: 98 % Review of Systems Constitutional: General Appearance []WDWN []Obese []Cachectic []Thin [x]Ill Eyes: Inspection of Pupils/Irises Pupils round and react: [x]Yes []No Sclera: []Icteric [x]Non-Icteric Inspection of Conjunctiva/Lids Conjunctiva: []Injected [x]Non-Injected Lids: []Intact [x]Lesion Present ENT/Mouth: External Inspection of ears/nose [] Normal [] Scar/Lesion/Mass Inspection of teeth/lips/gums Dentition: [][place] Teeth []Dentures Lips/Gums: []Intact []Lesion Present Mucosa: [][place] []Moist []Dry Neck: External Appearance Overall Appearance: [x]Normal []Lesion/Mass/Crepitus Present Trachea midline: [x]Yes []No Thyroid [x]Normal []Enlarged []Tender []Mass []Absent Respiratory: Respiratory effort []Labored [x]Non-Labored [] Mechanically-Ventilated Auscultation []Clear [x]Crackles []Wheezes [][place] Cardiovascular: Auscultation Rate: [x]Regular []Irregular []Tachycardia []Bradycardia Rhythm: [x]Regular []Irregular Murmur: []Present []Absent Extremities Peripheral Edema: []Present []Absent Varicosities: []Present []Absent Gastrointestinal: Abdomen Palpation: [x]Soft []Firm []Tender [x]Non-Tender []Distended []Non-distended Mass: []Present []Absent Bowel Sounds: [x]Present []Absent Hernia: []Present []Absent Liver/Spleen: []Hepatosplenomegaly []Organomegaly Absent Musculoskeletal: Inspection of Digits and Nails Cyanosis: [x]Present []Absent Clubbing: [x]Present []Absent Ischemia: [x]Present []Absent Infection: []Present []Absent Extremities [place] Equally: Except ([]RUE []RLE []LUE []LLE) Strength/Tone: Intact and Normal ([]RUE []RLE []LUE []LLE) Skin: Inspection []Normal []Rash []Lesion []Ulcer Palpation []Warm []Cool []Dry []Clammy []Nodules []Induration []Skin-tightening Cap-Refill: [] <3 sec [] >3 seconds (delayed) Neurologic: GCS EYE: 2 - Opens to pain GCS MOTOR: 4 - Withdraws from pain GCS VERBAL: 1 - No response Total GCS: 7 [] Sensation grossly intact Psych: Mental Status Alert: []Yes [] No Oriented: []x0 []X1 []X2 []x3 Mood/Affect []Normal []Flat []Agitated []Depressed []Anxious []Calm []Sedated []NAD [facility] within last 24 hours- BMP: Recent Labs 06/25/24173706/26/24 0513 NA 141 142 K 3.6 3.9 CL 114* 116* CO2 21* 19* BUN 37* 42* CREATININE 1.40* 1.39* CALCIUM 9.7 9.4 LFTs: Recent Labs 06/25/24173706/25/24 1851 06/26/24 0513 AST 45 -- 43 ALT 21 -- 21 PROT 6.7 -- 6.3 ALBUMIN 3.4* -- 3.2* BILITOT 0.9 -- 0.8 BILIRUBINU -- Negative -- ALKPHOS 89 -- 74 Glucose: Recent Labs 06/25/24 1712 06/25/24173706/25/24 2246 06/26/24 0513 06/26/24 0800 GLUCOSE -- 147* -- 155* -- POCGLU 140* -- 184* -- 169* Procal: No results for input(s): PROCAL in the last 72 hours. CBC: Recent Labs 06/25/24173706/26/24 0310 06/26/24 0513 06/26/24 0608 WBC 5.5 6.6 7.9 -- HGB 9.0* 7.9* 8.5* 8.5* HCT 27.7* 25.3* 27.2* 27.2* PLT 119* 106* 127* -- MCV 95.8 96.9 100.7* -- RDW 14.6 14.6 15.0 -- ABGs: No results for input(s): PHART, [id number], PO2ART, LHC0VTY, SO2ART, K4FPUIZY in the last 72 hours. Lactic Acid: No results for input(s): LACTATE in the last 72 hours. INR: Recent Labs 06/25/241737 INR 1.2* Cardiac Injury Profile: Recent Labs 06/25/24173706/25/24205006/25/24 2351 TROPONINI 0.040* 0.043* 0.042* Labs in Last 3 months: Lab Results Component Value Date TSH 3.912 05/30/2024 INR 1.2 (H) 06/25/2024 Microbiology- Urine Cx: Lab Results Component Value Date URINECX >100,000 CFU/mL Escherichia coli (A) 01/28/2024 Blood Cx: Lab Results Component Value Date BLOODCX No growth at 5 days 11/18/2022 BLOODCX No growth at 5 days 11/18/2022 Sputum Cx: No results found for: RESPCULT Gram Stain: No results found for: LABGRAM PNA PCR: No results found for: HUMANMETAPNE COVID19: No results found for: COVID19 Legionella Ag: No results found for: LEGIONELLAPN Strep Ag: No results for input(s): STREPPNEUMO in the last 72 hours. Imaging- Assessment and Plan: Acute encephalopathy, with worsening mental status overnight, patient has underlying UTI is on IV antibiotics CT head done this morning was unremarkable for any acute changes, ammonia level is elevated at 134. Hepatic encephalopathy, Place NG start on lactulose monitor ammonia levels GI bleed, monitor hemoglobin hematocrit transfuse PRBC to keep hemoglobin greater than 8 await GI input E. coli UTI continue IV antibiotics History of coronary artery disease status post CABG 03/17/2010, PCI in 2018 Moderate aortic stenosis History of cirrhosis of liver Acute kidney injury on chronic kidney disease stage III Second-degree heart block status post permanent pacemaker Principal Problem: Acute cystitis with hematuria GI Prophylaxis: Pantoprazole IV DVT Prophylaxis: Patient is having a GI bleed BMI Classification: There is no height or weight on file to calculate BMI. Disposition: Transfer to ICU Critical Care Time: >35 min Total critical care time caring for this patient with life threatening, unstable organ failure, including direct patient contact, management of life support systems, review of data including imaging and labs, discussions with other team members and physicians, excluding procedures. documented in this encounter [facility] 06-26-2024 Note [facility] 06-26-2024 Procedure note Associated Ord er(s): EEG Images from the original note were not included. [facility] [address] [place] [id number] ROUTINE EEG REPORT Patient Name: Mikel Winston : 1945 Date of Study: 06/26/2024 Duration Recorded: 22 minutes EEG#: [id number] CHIMNEY MECHANIC: TAE PROVIDER REQUESTING STUDY: Fadia Stringer MD REASON FOR EXAM: Evaluate for seizures DIAGNOSIS TAG: Transient Neurologic Symptoms (TNS) HISTORY: Mikel Winston is a 78 y.o. female with history significant for coronary artery disease, type 2 diabetes, hypertension admitted via emergency room for altered mental status, overnight patient has had worsening mental status patient had a CT head done earlier this morning which was unremarkable for acute events patient also had episodes of nausea and vomiting overnight and has had bloody bowel movements rapid response was called at 4:30 AM as patient was not responding to any verbal stimuli MEDICATIONS: Current Facility-Administered Medications Medication Dose Route Frequency Provider Last Rate Last Admin acetaminophen (Tylenol) tablet 650 mg 650 mg Oral q6h PRN Fadia Stringer MD Or acetaminophen (Tylenol) suppository 650 mg 650 mg Rectal q6h PRN Fadia Stringer MD aspirin EC tablet 81 mg 81 mg Oral Daily Fadia Stringer MD cefTRIAXone (Rocephin) 1,000 mg in sodium chloride 0.9 % 50 mL IVPB Mini-Bag Plus 1,000 mg IntraVENous q24h Fadia Stringer MD cholecalciferol (Vitamin D-3) tablet 5,000 Units 5,000 Units Oral Daily Fadia Stringer MD cyanocobalamin (Vitamin B-12) tablet 100 mcg 100 mcg Oral Daily Fadia Stringer MD dextrose 5 % infusion 100 mL/hr IntraVENous PRN Fadia Stringer MD dextrose 50 % solution 12.5 g 12.5 g IntraVENous PRN Fadia Stringer MD ferrous sulfate tablet 325 mg 325 mg Oral Daily with breakfast Fadia Stringer MD glucagon (human recombinant) injection 1 mg 1 mg IntraMUSCular PRN Fadia Stringer MD glucose oral gel 15 g 15 g Oral PRN Fadia Stringer MD influenza vaccine A&B surf ant adjuvanted (Fluad) HIGH-DOSE injection 0.5 mL 0.5 mL IntraMUSCular Prior to discharge Fadia Stringer MD Insulin Lispro (Humalog) injection 0-12 Units 0-12 Units SubCUTAneous q6h Fadia Stringer MD 2 Units at 06/26/24 1209 ipratropium-albuterol (Duo-Neb) 0.5-2.5 mg/3 mL nebulizer solution 3 mL 3 mL Nebulization TID Fadia Stringer MD 3 mL at 06/26/24 0824 lactulose (Chronulac) 10 GM/15ML solution 20 g 20 g Oral TID Fadia Strigner MD 20 g at 06/26/24 1057 levothyroxine (Synthroid, Levoxyl) tablet 50 mcg 50 mcg Oral qAM AC Fadia Stringer MD linaGLIPtin (Tradjenta) tablet 5 mg 5 mg Oral Daily Fadia Stringer MD ondansetron ODT (Zofran-ODT) disintegrating tablet 4 mg 4 mg Oral q8h PRN Fadia Stringer MD Or ondansetron (Zofran) injection 4 mg 4 mg IntraVENous q6h PRN Fadia Stringer MD 4 mg at 06/26/24 0512 pantoprazole (ProtoNix) EC tablet 40 mg 40 mg Oral Nightly Fadia Stringer MD Or pantoprazole (ProtoNix) 40 mg in sodium chloride (PF) 0.9 % 10 mL injection 40 mg IntraVENous Nightly Fadia Stringer MD polyethylene glycol (PEG) 3350 (Miralax) packet 17 g 17 g Oral Daily PRN Fadia Stringer MD rosuvastatin (Crestor) tablet 20 mg 20 mg Oral Daily Fadia Stringer MD sodium chloride 0.9 % infusion 5-250 mL/hr IntraVENous PRN Fadia Stringer MD sodium chloride 0.9 % infusion 50 mL/hr IntraVENous Continuous Fadia Stringer MD 50 mL/hr at 06/25/24 1848 50 mL/hr at 06/25/24 1848 sodium chloride 0.9% (NS) flush 5-40 mL 5-40 mL IntraVENous q12h Fadia Stringer MD sodium chloride 0.9% (NS) flush 5-40 mL 5-40 mL IntraVENous PRN Fadia Stringer MD TECHNICAL ASPECTS: This routine scalp EEG study with video was carried out at [facility]. Scalp electrodes were positioned in person by an engineering technologist, following patient education, according to the 10-20 International system of electrode placement and maintained for integrity and quality of the recording. EEG data with video was recorded continuously and digitally stored. The engineering technologist reviewed all automated detections and manual events and prepared the data for archiving and provider review. Referential and bipolar montages were used for review. TECHNOLOGIST NOTES: No skull or scalp defects were observed. BACKGROUND ACTIVITY: Posterior background activity: No observable posterior dominant rhythm was seen. Beta range: Diffuse beta range activity (15-25 Hz, 10-20 uV) was seen. Sleep: No sleep architecture was observed. Normal Variants: No normal variants were identified. SLOWING: Continuous (greater than 90% of the recording) diffuse semi-rhythmical delta range (0.5-1.5 Hz, 10-50 uV) was seen with intermixed triphasic wave complexes. These complexes demonstrated an bskmcnpi-ng-vklmusbdi phase delay. Time Elapsed: 00:05:53 INTERICTAL EPILEPTIFORM ACTIVITY: No epileptiform activity was seen. ICTAL ACTIVITY: No ictal activity was seen. NON-EPILEPTIC EVENTS: None. ACTIVATION PROCEDURES: Photic stimulation was not performed. Hyperventilation was not performed. IMPRESSION AND ACTIONS TAKEN: This routine EEG with video is abnormal. Continuous koafgwno-wz-advnne diffuse slowing is seen with intermixed triphasic waves. This activity was unresponsive to stimulation. No seizures are captured. No sleep architecture is seen. The findings are consistent with a [id number] toxic-metabolic encephalopathy. Mark Chase MD PhD Epilepsy Attending documented in this encounter [facility] 06-25-2024 Note [facility] 06-25-2024 History and physical note Attending History and Physical Admit Date: 06/25/2024 PCP: KOMAL COHN DO CHIEF COMPLAINT: Altered mental status Reason for Admission: Altered mental status. History Obtained From: patient HISTORY OF PRESENT ILLNESS: Mikel is a 78 y.o. female with past medical history significant for CAD, DM, HTN who was brought into the ER with altered mental status. Patient per family was fine until around this morning at 11am when she was talking to her daughter over the phone and the phone evidently dropped. Later in the afternoon daughter tried to get hold of her however there was no response. Subsequently around 3 PM granddaughter went over to the house and she found the patient to be slumped over in her chair and confused. Patient is normally independent and lives by herself. Patient was subsequently brought into the emergency room for further evaluation and treatment. There is no record of her having any fever chills shortness of breath no bowel movement or bladder issues. Past Medical History: Past Medical History: Diagnosis Date CAD (coronary artery disease) Cirrhosis of liver (HCC) Diabetes mellitus (HCC) Hypertension Osteoporosis Thyroid disease Past Surgical History: Past Surgical History: Procedure Laterality Date APPENDECTOMY CARDIAC ELECTROPHYSIOLOGY PROCEDURE N/A 05/31/2024 Performed by Pravin Poole MD at [facility] Cardiac Cath/EP Lab CHOLECYSTECTOMY CORONARY ARTERY BYPASS GRAFT TOTAL KNEE ARTHROPLASTY Right TUBAL LIGATION Social History: Social History Socioeconomic History Marital status: Spouse name: Not on file Number of children: Not on file Years of education: Not on file Highest education level: Not on file Occupational History Not on file Tobacco Use Smoking status: Never Smokeless tobacco: Never Substance and Sexual Activity Alcohol use: No Drug use: No Sexual activity: Not Currently Other Topics Concern Not on file Social History Narrative Not on file Social Drivers of Health Financial Resource Strain: Medium Risk (01/28/2024) Overall Financial Resource Strain (CARDIA) Difficulty of Paying Living Expenses: Somewhat hard Food Insecurity: No Food Insecurity (06/01/2024) Hunger Vital Sign Worried About Running Out of Food in the Last Year: Never true Ran Out of Food in the Last Year: Never true Transportation Needs: No Transportation Needs (06/01/2024) PRAPARE - Transportation Lack of Transportation (Medical): No Lack of Transportation (Non-Medical): No Physical Activity: Insufficiently Active (01/28/2024) Exercise Vital Sign Days of Exercise per Week: 2 days Minutes of Exercise per Session: 10 min Stress: Stress Concern Present (01/28/2024) [place] [employer] - Occupational Stress Questionnaire Feeling of Stress : To some extent Social Connections: Moderately Integrated (01/28/2024) Social Connection and Isolation Panel [NHANES] Frequency of Communication with Friends and Family: More than three times a week Frequency of Social Gatherings with Friends and Family: More than three times a week Attends Nondenominational Services: More than 4 times per year Active Member of Clubs or Organizations: No Attends Club or Organization Meetings: Never Marital Status: Intimate Partner Violence: Not At Risk (06/01/2024) Humiliation, Afraid, Rape, and Kick questionnaire Fear of Current or Ex-Partner: No Emotionally Abused: No Physically Abused: No Sexually Abused: No Housing Stability: Low Risk (06/01/2024) Housing Stability Vital Sign Unable to Pay for Housing in the Last Year: No Number of Times Moved in the Last Year: 0 Homeless in the Last Year: No Family History: Family History Problem Relation Name Age of Onset Stroke Father's Brother Diabetes Father Mental illness Mother Coronary artery disease Brother Medications Prior to Admission: No current facility-administered medications on file prior to encounter. Current Outpatient Medications on File Prior to Encounter Medication Sig Dispense Refill alpha tocopherol (Vitamin E) 100 units capsule Take 100 Units by mouth daily. aspirin 81 MG EC tablet Take 81 mg by mouth daily. Cholecalciferol (Vitamin D) 125 MCG (5000 UT) capsule Take 5,000 Units by mouth daily. cholecalciferol (Vitamin D3) 200 Unit tablet split tablet Take 5,000 Units by mouth daily. cyanocobalamin (Vitamin B-12) 100 MCG tablet Take 100 mcg by mouth daily. ferrous sulfate 325 (65 Fe) MG tablet Take 325 mg by mouth daily (with breakfast). furosemide (Lasix) 20 MG tablet 3 days in a row (Patient taking differently: Take 20 mg by mouth Daily as needed (pt decides prn based on swelling BLE). 3 days in a row) 100 tablet 3 levothyroxine (Synthroid, Levoxyl) 50 MCG tablet TAKE 1 TABLET BY MOUTH DAILY 30 tablet 3 rosuvastatin (Crestor) 20 MG tablet Take 1 tablet (20 mg) by mouth daily. 90 tablet 3 SITagliptin (Januvia) 25 MG tablet Take 1 tablet (25 mg) by mouth daily. 30 tablet 1 trolamine salicylate (Aspercreme) 10 % cream Apply topically every 8 hours as needed (for muscle pain). Allergies: Allergies Allergen Reactions Codeine Hives REVIEW OF SYSTEMS: Constitutional: Negative for fever, chills, activity change and unexpected weight change. HEENT: Negative for congestion, postnasal drip and sneezing. Eyes: Negative for itching and visual disturbance. Respiratory: Negative for apnea, cough, choking, chest tightness, shortness of breath, wheezing and stridor. Cardiovascular: Negative for chest pain. Gastrointestinal: Negative for nausea, vomiting, abdominal pain, diarrhea and blood in stool. Genitourinary: Negative for dysuria, frequency and flank pain. Musculoskeletal: Negative for myalgias and joint swelling. Skin: Negative for rash. Neurological: Negative for dizziness, tremors, seizures, syncope, facial asymmetry, speech difficulty, weakness, numbness and headaches. Positive for altered mental status Hematological: Negative for adenopathy. Psychiatric/Behavioral: Negative for suicidal ideas, behavioral problems, self-injury and dysphoric mood. Vitals: BP (!) 161/79 Pulse 100 Temp 36.7 C (98.1 F) (Oral) Resp 16 SpO2 99% BMI Classification: Obese (BMI 30.0-39.9) Pulse Ox: SpO2 Av.5 % Min: 98 % Max: 99 % Supplemental O2: PHYSICAL EXAM: Constitutional: General: Patient is not in acute distress. Appearance: Normal appearance. HENT: Head: Normocephalic and atraumatic. Right Ear: External ear normal. Left Ear: External ear normal. Mouth/Throat: Mouth: Mucous membranes are moist. Pharynx: Oropharynx is clear. Eyes: Conjunctiva/sclera: Conjunctivae normal. Pupils: Pupils are equal, round, and reactive to light. Cardiovascular: Comments: Regular rate and rhythm, normal S1-S2, no murmurs noted. Radial pulses 2+ and symmetric. Pulmonary: Effort: Pulmonary effort is normal. No respiratory distress. Breath sounds: Normal breath sounds. No stridor. No wheezing or rhonchi. Abdominal: Comments: The abdomen is soft, nondistended and nontender. There is no rebound tenderness or guarding. Bowel sounds are normal. Skin: General: Skin is warm and dry. Capillary Refill: Capillary refill takes less than 2 seconds. Coloration: Skin is not jaundiced or pale. Findings: No bruising or erythema. Neurological: General: lethargic, occasionally opening eyes to verbal commands, but otherwise non verbal. Psychiatric: Mood and Affect: Mood normal. Musculoskeletal: NO edema NIH Stroke Scale 1A. Level of Consciousness: lethargic 1B. Ask Month and Age: UTO 1C. Blink Eyes & Squeeze Hands: UTO 2. Best Gaze: UTO 3. Visual: UTO 4. Facial Palsy: UTO 5A. Motor - Left Arm: UTO 5B. Motor - Right Arm: UTO 6A. Motor - Left Leg: UTO 6B. Motor - Right Leg: UTO 7. Limb Ataxia: UTO 8. Sensory Loss: UTO 9. Best Language: UTO 10. Dysarthria: UTO 11. Extinction and Inattention: UTO NIH Stroke Scale: skewed due to altered mentation DATA: CBC: Recent Labs 06/25/24 1738 WBC 5.5 RBC 2.89* HGB 9.0* HCT 27.7* MCV 95.8 RDW 14.6 PLT 119* BMP: Recent Labs 06/25/24 1738 NA 141 K 3.6 CL 114* CO2 21* BUN 37* CREATININE 1.40* GLUCOSE 147* CALCIUM 9.7 ANIONGAP 7 LIVER PROFILE: Recent Labs 06/25/24 1738 AST 45 ALT 21 BILITOT 0.9 ALKPHOS 89 PROT 6.7 PT/INR: Recent Labs 06/25/24 1738 PROTIME 13.2* INR 1.2* CARDIAC ENZYMES: Recent Labs 06/25/24 1738 TROPONINI 0.040* Procalcitonin: No results found for: PROCAL Urine Culture: Results for orders placed or performed during the hospital encounter of 01/28/24 Urine culture Collection Time: 01/28/24 5:10 PM Specimen: Urine, Clean Catch Result Value Ref Range Urine Culture >100,000 CFU/mL Escherichia coli (A) Susceptibility Escherichia coli - BROTH MICRODILUTION Amoxicillin / Clavulanate >=32 Resistant ug/ml Ampicillin >=32 Resistant ug/ml Ampicillin / Sulbactam 8 Susceptible ug/ml Aztreonam <=1 Susceptible ug/ml Cefazolin >=64 Resistant ug/ml Cefepime <=1 Susceptible ug/ml Ceftriaxone <=1 Susceptible ug/ml Ciprofloxacin <=0.25 Susceptible ug/ml Gentamicin <=1 Susceptible ug/ml Meropenem <=0.25 Susceptible ug/ml Nitrofurantoin <=16 Susceptible ug/ml Piperacillin / Tazobactam <=4 Susceptible ug/ml Trimethoprim / Sulfamethoxazole >=320 Resistant ug/ml COVID-19 PCR: No results for input(s): COVID19 in the last 72 hours. I reviewed: [x] laboratory results [x] radiographic results At the time of today's encounter. Pt was advised of the results. Data: (CAT1) Clinical information was necessarily obtained from an independent historian. (LOW: 2x CAT1 or independent historian MOD: 3x CAT1 or 1x CAT3 EXTENSIVE: 3x CAT1 and 1x CAT3) Assessment Discussed management with the ED provider and agree with hospitalization. Acute, acute on chronic, unstable/uncontrolled chronic problems/diagnoses: Altered mental status UTI Suspected pneumonia Elevated troponin Stable chronic problems affecting care, new non-acute diagnoses: History of coronary artery disease Hypertension Type 2 diabetes Cirrhosis of the liver Plan As a result of the above findings & factors, the following mgmt was pursued: -Admit the patient to the telemetry floor Patient received a dose of Rocephin 1 g which will be continued on a daily basis Follow urine culture and adjust antibiotic depending on final sensitivity Initiate bronchodilator treatments scheduled and as needed Aspiration precaution . Oxygen supplementation to maintain saturation greater than 92% Trend troponin level Resume rest of medications from home Fall precautions Neurochecks - am labs, replace lytes prn - PT/OT/CM/SW - delirium precautions: increase activity and limit nighttime disturbances - DVT prophylaxis: enoxaparin and encourage ambulation Complexity: Acute illness with systemic symptoms (MOD). Risk: Admission to hospital-level care was considered or occurred (HIGH). Advance Directive: Prior Anticipated Discharge - Date - 06/27/24 - Location - Skilled Facility - Pending the following -treatment for UTI and suspected pneumonia Total time spent (which include face to face and non face to face encounters) : 60 minutes. Toxic drug monitoring/narrow therapeutic index drug monitoring : # Drug name : Lovenox # Route administered : Subcutaneous # Method of monitoring : CBC Extended Emergency Contact Information Primary Emergency Contact: Arnel Forte Mobile Relation: Child Secondary Emergency Contact: Russell Winston Mobile Relation: Child [employer] Mikel Winston : 1945 Primary Care Physician: KOMAL COHN DO The patient and/or family/surrogate voluntarily agreed to participate in ACP services. Patient s cognitive capacity: Lethargic, not following commands Code Status: [x_] [FULL CODE - Continue all advanced life support: CPR,intubation,invasive procedures] [_] [DNR-CCA - DO NOT do CPR, intubation] [_] [DNR-HUNTER GUIDE - Comfort care only] [_] DNR form [was/was not] signed Summary of discussion: The patient health care POA/ surrogate is the following: Daughter. [Condition that instigated the ACP on this DOS, relevant PMH, functional status, goals of care, and whom this was discussed with including names and relationship to the patient, and any relevant advance care documentation discussion] I answered all the patient/family questions that I could within the range and scope of the current medical situation. We discussed the medical conditions, risks, benefits, outcomes, and goals of care at this time for the patient's medical issues at hand in the face of the patient's chronic issues and current presentation. Total time spent: 5 minutes were spent discussing the patient's resuscitation status, advance care planning, and end of life care, with patient and/or family/surrogate. Erinn Santoro MD Division of Hospitalist Medicine [facility] documented in this encounter [facility] 06-25-2024 Emergency department Note Emergency Department Encounter [facility] PCU 2E Patient: Mikel Winston : 1945 Date of Evaluation: 06/25/2024 ED PAR[facility] Provider: CORNEL Rosen was supervised by Dr. David who independently examined and evaluated the patient. Please see their attestation note for further details. Chief Complaint Chief Complaint Patient presents with Altered Mental Status Complaint of altered mental status and weakness that started several days ago. Patient is confused at this time and very tired. Patient is able to be aroused with voice. Patient denies pain at this time UNALAKLEET I was wearing a N95, Surgical mask for the entirety of this encounter. Mikel Winston is a 78 y.o. female with a past medical history of hypertension, diabetes, CAD, hypothyroidism, cirrhosis of liver, osteoporosis who presents to the emergency department for evaluation of altered mental status. Patient was last known well at 11 AM this morning when she was talking to her daughter over the phone, having a normal conversation but then the phone apparently dropped. They did not hear from the patient until granddaughter went over to the house at 3 PM and she was slumped over in her chair, confused. Normally she lives on her own, ambulates without assistance, no confusion. Currently she does not appear to be in pain. No prior stroke. No evidence of fall or trauma. No fevers. Family spoke to her around 11 AM she is complaining of nausea and diarrhea. Also recently had an episode of rectal bleeding. Limitations to history: Altered mental status/confusion Outside historians: Family granddaughter Past History Past Medical History: Diagnosis Date CAD (coronary artery disease) Cirrhosis of liver (HCC) Diabetes mellitus (HCC) Hypertension Osteoporosis Thyroid disease Past Surgical History: Procedure Laterality Date APPENDECTOMY CARDIAC ELECTROPHYSIOLOGY PROCEDURE N/A 05/31/2024 Performed by Pravin Poole MD at [facility] Cardiac Cath/EP Lab CHOLECYSTECTOMY CORONARY ARTERY BYPASS GRAFT TOTAL KNEE ARTHROPLASTY Right TUBAL LIGATION Social History Socioeconomic History Marital status: Tobacco Use Smoking status: Never Smokeless tobacco: Never Substance and Sexual Activity Alcohol use: No Drug use: No Sexual activity: Not Currently Social Drivers of Health Financial Resource Strain: Medium Risk (01/28/2024) Overall Financial Resource Strain (CARDIA) Difficulty of Paying Living Expenses: Somewhat hard Food Insecurity: No Food Insecurity (06/01/2024) Hunger Vital Sign Worried About Running Out of Food in the Last Year: Never true Ran Out of Food in the Last Year: Never true Transportation Needs: No Transportation Needs (06/01/2024) PRAPARE - Transportation Lack of Transportation (Medical): No Lack of Transportation (Non-Medical): No Physical Activity: Insufficiently Active (01/28/2024) Exercise Vital Sign Days of Exercise per Week: 2 days Minutes of Exercise per Session: 10 min Stress: Stress Concern Present (01/28/2024) [place] [employer] - Occupational Stress Questionnaire Feeling of Stress : To some extent Social Connections: Moderately Integrated (01/28/2024) Social Connection and Isolation Panel [NHANES] Frequency of Communication with Friends and Family: More than three times a week Frequency of Social Gatherings with Friends and Family: More than three times a week Attends Nondenominational Services: More than 4 times per year Active Member of Clubs or Organizations: No Attends Club or Organization Meetings: Never Marital Status: Intimate Partner Violence: Not At Risk (06/01/2024) Humiliation, Afraid, Rape, and Kick questionnaire Fear of Current or Ex-Partner: No Emotionally Abused: No Physically Abused: No Sexually Abused: No Housing Stability: Low Risk (06/01/2024) Housing Stability Vital Sign Unable to Pay for Housing in the Last Year: No Number of Times Moved in the Last Year: 0 Homeless in the Last Year: No Medications/Allergies Current Discharge Medication List CONTINUE these medications which have NOT CHANGED Details alpha tocopherol (Vitamin E) 100 units capsule Take 100 Units by mouth daily. aspirin 81 MG EC tablet Take 81 mg by mouth daily. Cholecalciferol (Vitamin D) 125 MCG (5000 UT) capsule Take 5,000 Units by mouth daily. cholecalciferol (Vitamin D3) 200 Unit tablet split tablet Take 5,000 Units by mouth daily. cyanocobalamin (Vitamin B-12) 100 MCG tablet Take 100 mcg by mouth daily. ferrous sulfate 325 (65 Fe) MG tablet Take 325 mg by mouth daily (with breakfast). furosemide (Lasix) 20 MG tablet 3 days in a row Qty: 100 tablet, Refills: 3 levothyroxine (Synthroid, Levoxyl) 50 MCG tablet TAKE 1 TABLET BY MOUTH DAILY Qty: 30 tablet, Refills: 3 Comments: RX ANNABELLE:0 DISPS ANNABELLE:0 rosuvastatin (Crestor) 20 MG tablet Take 1 tablet (20 mg) by mouth daily. Qty: 90 tablet, Refills: 3 Associated Diagnoses: Coronary artery disease involving coronary bypass graft of [place] heart without angina pectoris SITagliptin (Januvia) 25 MG tablet Take 1 tablet (25 mg) by mouth daily. Qty: 30 tablet, Refills: 1 trolamine salicylate (Aspercreme) 10 % cream Apply topically every 8 hours as needed (for muscle pain). Allergies Allergen Reactions Codeine Hives Physical Exam BP 143/66 (BP Location: Left arm, Patient Position: Sitting) Pulse 105 Temp 36.7 C (98.1 F) (Temporal) Resp 18 SpO2 99% Physical Exam GENERAL APPEARANCE: Altered. Falls asleep during exam but wakens easily with loud voice. HEENT: Normocephalic. Atraumatic. Pupils equal and reactive. NECK: Supple. Trachea midline. CARDIO: Slight tachycardic, regular rhythm. Radial pulses symmetrical and palpable LUNGS: Respirations unlabored. CTAB. ABDOMEN: Soft. Non-distended. Non-tender throughout. MUSCULOSKELETAL: No acute deformities. SKIN: Warm and dry. NEUROLOGICAL: Only oriented to name. No gross facial drooping. No obvious neurologic deficits. SCREENINGS D Labs: Results for orders placed or performed during the hospital encounter of 06/25/24 POCT glucose meter Collection Time: 06/25/24 5:12 PM Result Value Ref Range Glucose 140 (H) 70 - 100 mg/dL ECG 12 lead if not already done by Squad Collection Time: 06/25/24 5:35 PM Result Value Ref Range Heart Rate 97 bpm QRSD Interval 140 ms QT Interval 399 ms QTC Interval 507 ms P [place] 46 degrees QRS [place] -12 degrees T Wave [place] 173 degrees [place] Interval 229 ms CBC auto differential Collection Time: 06/25/24 5:38 PM Result Value Ref Range Auto WBC 5.5 3.6 - 10.7 10*3/uL RBC 2.89 (L) 3.80 - 5.20 10*6/uL Hemoglobin 9.0 (L) 11.7 - 16.0 g/dL Hematocrit 27.7 (L) 35.0 - 47.0 % MCV 95.8 77.0 - 99.0 fL MCH 31.1 26.0 - 34.0 pg MCHC 32.5 30.5 - 36.0 % RDW 14.6 11.5 - 15.0 % Platelets 119 (L) 140 - 440 10*3/uL MPV 11.2 9.0 - 12.7 fL nRBC 0.0 0.0 - 2.0 /100 WBCs Neutrophils Relative 65.7 38.0 - 82.0 % Lymphocytes Relative 15.8 15.0 - 45.0 % Monocytes Relative 15.4 (H) 5.0 - 13.0 % Eosinophils Relative 2.0 0.0 - 6.0 % Basophils Relative 0.9 0.0 - 2.0 % Immature Grans % 0.2 0.0 - 2.0 % Neutrophils Absolute 3.6 1.8 - 7.5 10*3/uL Lymphocytes Absolute 0.9 (L) 1.0 - 4.3 10*3/uL Monocytes Absolute 0.9 0.0 - 0.9 10*3/uL Eosinophils Absolute 0.1 0.0 - 0.5 10*3/uL Basophils Absolute 0.1 0.0 - 0.2 10*3/uL Immature Grans Absolute 0.0 <0.1 10*3/uL Troponin, with Serial Reflex Collection Time: 06/25/24 5:38 PM Result Value Ref Range TROPONIN I 0.040 (H) <0.034 ng/mL PROTIME/INR & PTT Collection Time: 06/25/24 5:38 PM Result Value Ref Range PROTHROMBIN TIME 13.2 (H) 9.0 - 12.0 s INR 1.2 (H) 0.9 - 1.1 APTT 25.1 20.0 - 30.5 s Comprehensive metabolic panel Collection Time: 06/25/24 5:38 PM Result Value Ref Range SODIUM 141 135 - 145 mmol/L POTASSIUM 3.6 3.5 - 5.1 mmol/L CHLORIDE 114 (H) 98 - 107 mmol/L CARBON DIOXIDE 21 (L) 22 - 30 mmol/L ANION GAP 7 3 - 13 mmol/L UREA NITROGEN 37 (H) 7 - 17 mg/dL CREATININE 1.40 (H) 0.52 - 1.04 mg/dL GLUCOSE 147 (H) 70 - 100 mg/dL CALCIUM 9.7 8.4 - 10.4 mg/dL AST (SGOT) 45 15 - 46 U/L ALT 21 0 - 34 U/L ALKALINE PHOSPHATASE 89 38 - 126 U/L ALBUMIN 3.4 (L) 3.5 - 5.0 g/dL BILIRUBIN, TOTAL 0.9 0.2 - 1.3 mg/dL TOTAL PROTEIN 6.7 6.3 - 8.2 g/dL eGFR 38.6 (L) >60.0 mL/min/1.73m*2 Complete Urinalysis Collection Time: 06/25/24 6:51 PM Result Value Ref Range Color, Urine Light Yellow Lt. Yellow Clarity, Urine Clear Clear pH, Urine 5.0 5.0 - 8.0 pH Leukocytes, Urine 75 (A) Negative [place]omi/uL Nitrite, Urine Negative Negative Protein, Urine 30 (A) Negative mg/dL Glucose, Urine Normal Normal (<70) mg/dL Bilirubin, Urine Negative Negative mg/dL Ketones, Urine Negative Negative mg/dL Urobilinogen, Urine Normal Normal (0-1) mg/dL Blood, Urine Negative Negative mg/dL RBC, Urine 3-5 (A) 0 - 2 /HPF WBC, Urine 11-25 (A) 0 - 5 /HPF Squamous Epithelial, Urine 0-2 3 - 5 /HPF Bacteria, Urine Moderate (A) Negative /HPF Mucus, Urine Few Negative /LPF Yeast, Urine Few (A) Negative /HPF WBC Clumps, Urine Rare (A) Negative /HPF SPECIFIC GRAVITY OF URINE (NUMERIC) 1.018 1.005 - 1.030 COVID-19, Flu A/B, and RSV Combo Collection Time: 06/25/24 6:52 PM Specimen: Nasopharynx; Swab Result Value Ref Range SARS-CoV-2 Not Detected Not Detected Respiratory Syncytial Virus Not Detected Not Detected Influenza A Not Detected Not Detected Influenza B Not Detected Not Detected Radiographs: XR chest 1 view Final Result Cardiomegaly. Left lung base atelectasis and/or small pleural effusion. Pulmonary vascular congestion and/or infiltrates. Report Dictated on Electronically Signed By: Sue Hernandez MD Electronically Signed Date/Time: 06/25/2024 6:[address] head wo IV contrast Final Result No acute intracranial process. Global volume loss with small vessel ischemia. Report Dictated on Electronically Signed By: Sue Hernandez MD Electronically Signed Date/Time: 06/25/2024 5:56 PM EST : EKG: All EKG's areinterpreted by the Emergency Department Physician in the absence of a social work specialist. see their note for interpretation of EKG. EMERGENCY DEPARTMENT COURSE and DIFFERENTIAL DIAGNOSIS/MDM: External Records Review: . Social Determinants of Health: . Mikel Winston is a 78 y.o. female who presented to the emergency department for evaluation of altered mental status. Differential diagnosis included CVA, UTI, pneumonia. On exam patient is awake but disoriented, only oriented to her name. She has global weakness, poor effort to move her extremities, she is confused, does not follow commands, making her NIH score approximately 18. Further workup was obtained and patient does have a UTI, she does have elevated troponin as well and would need to be monitored for further cardiac event which is a possibility. Patient was given Rocephin. Stable anemia noted. Chronic renal insufficiency noted. Patient admitted to [facility]. Final Diagnosis: 1. Acute cystitis with hematuria 2. Altered mental status, unspecified altered mental status type Medications sodium chloride 0.9% (NS) flush 5-40 mL (has no administration in time range) sodium chloride 0.9% (NS) flush 5-40 mL (has no administration in time range) sodium chloride 0.9 % infusion (has no administration in time range) sodium chloride 0.9 % infusion (50 mL/hr IntraVENous New Bag 06/25/24 1848) sodium chloride 0.9 % bolus 250 mL (0 mL IntraVENous Stopped 06/25/24 183) cefTRIAXone (Rocephin) 1,000 mg in sodium chloride 0.9 % 50 mL IVPB Mini-Bag Plus (1,000 mg IntraVENous New Bag 06/25/24 1943) CRITICAL CARE TIME CONSULTS: None PROCEDURES: Unless otherwise noted below, none Procedures DISPOSITION/PLAN Admit 06/25/2024 07:54:55 PM PATIENT REFERRED TO: No follow-up provider specified. DISCHARGE MEDICATIONS: Current Discharge Medication List @[facility]([id number]:LAST:1)@ (Please note: Portions of this note were completed with a voice recognition program. Efforts were made to edit the dictations but occasionally words and phrases are mis-transcribed.) Form [id number] Lawson Melvin PA-C [employer] Lawson Melvin PA-C 06/25/242037 Cosigned by Kaiden David MD at 06/25/2024 9:14 PM EST Emergency Department Encounter [facility] ED Patient: Mikel Winston : 1945 Date of Evaluation: 06/25/2024 ED Supervising Physician: Kaiden David MD I personally evaluated Mikel Winston and made/approved the management plan and take responsibility for the patient management. This will serve as my Supervisory note and shared attestation. I did perform a substantive portion of the visit including all aspects of the Medical Decision Making. I wore appropriate PPE for the entirety of this encounter. In brief, Mikel Winston is a 78 y.o. that presents to the emergency department for evaluation of being altered. Family states that patient is confused. On evaluation patient only answers the word Mikel to any question that she is asked. Family states they spoke to her around 11 AM at that time she was complaining of nausea and diarrhea. When they called patient back around 2 PM she did not answer the phone. They went over to the house around 3 PM in the family found her slumped over in a chair. Family notes that she recently has had an episode of rectal bleeding. Focused exam: Patient is awake but only oriented to her name. She does fall asleep during history and exam but awakens easily with loud voice. No signs of head trauma. Pupils equal and reactive. Lungs clear to auscultation bilaterally. Heart regular rate and rhythm. Abdomen soft nondistended without focal tenderness rebound or guarding. Extremities without any obvious tenderness. EKG: Paced rhythm. Rate of 97. No other interpretation due to being paced rhythm. No significant change compared to previous of 06/01/2024. Today's EKG interpreted by this examiner. Chest x-ray: Bibasilar atelectasis, increased vascular markings concerning for mild fluid overload. Interpreted this examiner. CT head shows no acute intracranial hemorrhage. Interpreted by this examiner. Brief ED course/MDM: Patient presents with altered mental status. She has global weakness, poor effort to move her extremities as well as confusion which is making her NIH score be approximately 18. I do feel she needs to be admitted for further evaluation of altered mental status which may be multifactorial. She does have UTI. She does have elevated troponin and may have had a cardiac event which will need to be monitored. Diagnostics interpreted by me: Xray(s) chest x-ray as above CT scan(s) CT head as above EKG; see my interpretation elsewhere in the chart All diagnostic, treatment, and disposition decisions were made by myself in conjunction with the PAR[facility]. For all further details of the patient's emergency department visit, please see their documentation. (Comment: Please note this report has been produced using speech recognition software and may contain errors related to that system including errors in grammar, punctuation, and spelling, as well as words and phrases that may be inappropriate. If there are any questions or concerns please feel free to contact the dictating provider for clarification.) Kaiden David MD [facility] Kaiden David MD 06/25/241941 documented in this encounter [facility] 06-11-2024 Note HNO ID: [id number] Author: KOMAL COHN DO Service: ? Author Type: Physician Type: Progress Notes Filed: 06/18/2024 19:25 Note Text: [facility] [place] Cohn DO [address] [place] [address] Date of Evaluation: 06/11/2024 Patient Name: Mikel Winston : 1945 Chief Complaint: Patient presents with: Hospital Discharge: 06/01/24 [facility], pace maker placement. Skin Check: Skin tag right upper shoulder area Nursing Intake: There are no exam notes on file for this visit. Subjective Ms. Winston is a 78 year old female who presents with the following complaint(s): Patient presents to follow up from [facility] 05/29/24-06/01/24. Patient began to feel tired and sob and started checking her pulse and found her pulse was 35. Atenolol discontinued due to hopes that bradycardia would resolve. Patient transferred for PPM placement. Patient now s/p PPM impant by Dr. Poole. Patient doing well at this time, denies concerns. BP is running high. The history is provided by the patient. Hypertension This is a chronic problem. The current episode started more than 1 year ago. The problem is uncontrolled. Pertinent negatives include no chest pain, headaches, palpitations or shortness of breath. Review of Systems Constitutional: Negative for fatigue and unexpected weight change. HENT: Negative for nosebleeds. Eyes: Negative for redness and visual disturbance. Respiratory: Negative for apnea, cough and shortness of breath. Cardiovascular: Negative for chest pain, palpitations and leg swelling. Genitourinary: Negative for hematuria. Neurological: Negative for dizziness, weakness, light-headedness, numbness and headaches. Hematological: Does not bruise/bleed easily. Psychiatric/Behavioral: The patient is not nervous/anxious. PAST MEDICAL HISTORY Diagnosis Date Anemia Diabetes (HCC) Diverticulosis Dysphagia FHx: colon cancer Hemorrhoids Hepatic flexure syndrome History of colon polyps Hypertension Kidney disease BARRON (nonalcoholic steatohepatitis) UTI (urinary tract infection) PAST SURGICAL HISTORY Procedure Laterality Date ANESTH,PACEMAKER INSERTION COLONOSCOPY 05/09/2012 TUBAL LIGATION HX FAMILY HISTORY Problem Relation Age of Onset Colon Cancer Mother other (Liver disease) Mother Social History Tobacco Use Smoking status: Former Smokeless tobacco: Never Vaping Use Vaping status: Never Used Substance Use Topics Alcohol use: No Drug use: No Current Outpatient Medications Medication Sig silver sulfADIAZINE (SILVADENE) 1 % cream Apply 1 application to affected area two times a day. trolamine salicylate (MYOFLEX) 10 % cream Apply 1 Each to affected area three times a day as needed. blood sugar diagnostic (BLOOD GLUCOSE TEST) test strip Use to test blood sugar BID SITagliptin phosphate (JANUVIA) 25 mg tablet Take 1 tablet by mouth once daily. levothyroxine (SYNTHROID) 50 mcg tablet take 1 tablet by mouth every day nystatin (MYCOSTATIN) powder Apply 1 application to affected area three times a day. APPLY TO AFFECTED AREA ferrous sulfate 325 mg (65 mg iron) tablet Take 1 tablet by mouth every afternoon. fluticasone (FLONASE) 50 mcg/actuation nasal spray Use 2 Sprays in each nostril once daily. rosuvastatin (CRESTOR) 20 mg tablet Take 1 tablet by mouth once daily. VITAMIN B-12 1,000 mcg tab take 1 tablet by mouth every day Blood-Glucose Meter Use to test blood sugar Lancets lancets Use to test blood sugar BID cholecalciferol, vitamin D3, (VITAMIN D3 ORAL) Take by mouth. aspirin 81 mg chewable tablet Take 81 mg by mouth. Vitamin E, dl, acetate, (VITAMIN E) 400 unit capsule Take 800 Units by mouth. amLODIPine (NORVASC) 5 mg tablet Take 1 tablet by mouth once daily. No current facility-administered medications for this visit. I have confirmed and edited as necessary the past medical, family and social histories, HPI, and ROS obtained by others. Objective BP 143/90 Pulse 92 Temp 97.8 Ht 5' 4 (1.63m) Wt 190 lb (86.2kg) SpO2 98% BMI 32.60 kg/(m2). Physical Exam Vitals and nursing note reviewed. Constitutional: General: She is not in acute distress. Appearance: Normal appearance. She is well-developed. She is obese. She is not ill-appearing. HENT: Head: Normocephalic. Nose: Nose normal. Mouth/Throat: Pharynx: Uvula midline. Eyes: General: Lids are normal. Vision grossly intact. Gaze aligned appropriately. Extraocular Movements: Extraocular movements intact. Conjunctiva/sclera: Conjunctivae normal. Pupils: Pupils are equal, round, and reactive to light. Neck: Thyroid: No thyroid mass, thyromegaly or thyroid tenderness. Trachea: Trachea and phonation normal. Cardiovascular: Rate and Rhythm: Normal rate and regular rhythm. Pulses: Normal pulses. Heart al (more content not included)... [facility] 06-11-2024 History of Present illness Narrative Images from the original note were not included. [facility] [place] DO Lalit [address] [place] [address] Date of Evaluation: 06/11/2024 Patient Name: Mikel Winston : 1945 Chief Complaint: Patient presents with: Hospital Discharge: 06/01/24 [facility], pace maker placement. Skin Check: Skin tag right upper shoulder area Nursing Intake: There are no exam notes on file for this visit. Subjective Ms. Winston is a 78 year old female who presents with the following complaint(s): Patient presents to follow up from [facility] 05/29/24-06/01/24. Patient began to feel tired and sob and started checking her pulse and found her pulse was 35. Atenolol discontinued due to hopes that bradycardia would resolve. Patient transferred for PPM placement. Patient now s/p PPM impant by Dr. Poole. Patient doing well at this time, denies concerns. BP is running high. The history is provided by the patient. Hypertension This is a chronic problem. The current episode started more than 1 year ago. The problem is uncontrolled. Pertinent negatives include no chest pain, headaches, palpitations or shortness of breath. Review of Systems Constitutional: Negative for fatigue and unexpected weight change. HENT: Negative for nosebleeds. Eyes: Negative for redness and visual disturbance. Respiratory: Negative for apnea, cough and shortness of breath. Cardiovascular: Negative for chest pain, palpitations and leg swelling. Genitourinary: Negative for hematuria. Neurological: Negative for dizziness, weakness, light-headedness, numbness and headaches. Hematological: Does not bruise/bleed easily. Psychiatric/Behavioral: The patient is not nervous/anxious. PAST MEDICAL HISTORY Diagnosis Date Anemia Diabetes (HCC) Diverticulosis Dysphagia FHx: colon cancer Hemorrhoids Hepatic flexure syndrome History of colon polyps Hypertension Kidney disease BARRON (nonalcoholic steatohepatitis) UTI (urinary tract infection) PAST SURGICAL HISTORY Procedure Laterality Date ANESTH,PACEMAKER INSERTION COLONOSCOPY 05/09/2012 TUBAL LIGATION HX FAMILY HISTORY Problem Relation Age of Onset Colon Cancer Mother other (Liver disease) Mother Social History Tobacco Use Smoking status: Former Smokeless tobacco: Never Vaping Use Vaping status: Never Used Substance Use Topics Alcohol use: No Drug use: No Current Outpatient Medications Medication Sig silver sulfADIAZINE (SILVADENE) 1 % cream Apply 1 application to affected area two times a day. trolamine salicylate (MYOFLEX) 10 % cream Apply 1 Each to affected area three times a day as needed. blood sugar diagnostic (BLOOD GLUCOSE TEST) test strip Use to test blood sugar BID SITagliptin phosphate (JANUVIA) 25 mg tablet Take 1 tablet by mouth once daily. levothyroxine (SYNTHROID) 50 mcg tablet take 1 tablet by mouth every day nystatin (MYCOSTATIN) powder Apply 1 application to affected area three times a day. APPLY TO AFFECTED AREA ferrous sulfate 325 mg (65 mg iron) tablet Take 1 tablet by mouth every afternoon. fluticasone (FLONASE) 50 mcg/actuation nasal spray Use 2 Sprays in each nostril once daily. rosuvastatin (CRESTOR) 20 mg tablet Take 1 tablet by mouth once daily. VITAMIN B-12 1,000 mcg tab take 1 tablet by mouth every day Blood-Glucose Meter Use to test blood sugar Lancets lancets Use to test blood sugar BID cholecalciferol, vitamin D3, (VITAMIN D3 ORAL) Take by mouth. aspirin 81 mg chewable tablet Take 81 mg by mouth. Vitamin E, dl, acetate, (VITAMIN E) 400 unit capsule Take 800 Units by mouth. amLODIPine (NORVASC) 5 mg tablet Take 1 tablet by mouth once daily. No current facility-administered medications for this visit. I have confirmed and edited as necessary the past medical, family and social histories, HPI, and ROS obtained by others. Objective BP 143/90 Pulse 92 Temp 97.8 Ht 5' 4 (1.63m) Wt 190 lb (86.2kg) SpO2 98% BMI 32.60 kg/(m^2). Physical Exam Vitals and nursing note reviewed. Constitutional: General: She is not in acute distress. Appearance: Normal appearance. She is well-developed. She is obese. She is not ill-appearing. HENT: Head: Normocephalic. Nose: Nose normal. Mouth/Throat: Pharynx: Uvula midline. Eyes: General: Lids are normal. Vision grossly intact. Gaze aligned appropriately. Extraocular Movements: Extraocular movements intact. Conjunctiva/sclera: Conjunctivae normal. Pupils: Pupils are equal, round, and reactive to light. Neck: Thyroid: No thyroid mass, thyromegaly or thyroid tenderness. Trachea: Trachea and phonation normal. Cardiovascular: Rate and Rhythm: Normal rate and regular rhythm. Pulses: Normal pulses. Heart sounds: Murmur heard. Abdominal: Palpations: Abdomen is soft. Musculoskeletal: General: Normal range of motion. Right shoulder: Normal. Left shoulder: Normal. Cervical back: Normal, full passive range of motion without pain and neck supple. No spinous process tenderness. Thoracic back: Normal. Lumbar back: Normal. Right knee: Normal. Left knee: Normal. Right lower leg: No edema. Left lower leg: No edema. Skin: General: Skin is warm and dry. Neurological: General: No focal deficit present. Mental Status: She is alert and oriented to person, place, and time. Mental status is at baseline. Sensory: Sensation is intact. Motor: Motor function is intact. Psychiatric: Attention and Perception: Attention and perception normal. Mood and Affect: Mood normal. Speech: Speech normal. Behavior: Behavior normal. Thought Content: Thought content normal. Judgment: Judgment normal. Data Reviewed: Most recent labs and imaging results. ASSESSMENT/PLAN: 1. Primary hypertension - ICD9: 401.9, ICD10: I10 (primary diagnosis) - Uncontrolled - Start amlodipine - Recommend home blood pressure monitoring, to bring results to next visit - Encouraged sodium restriction, DASH or Mediterranean diet - Recommend regular aerobic exercise - Reviewed risks of hypertension and principles of treatment 30+min - AMLODIPINE 5 MG TABLET 2. Systolic murmur - ICD9: 785.2, ICD10: R01.1 3. Symptomatic sinus bradycardia - ICD9: 427.89, ICD10: R00.1 - Follow up hospital admission from 05/29/2024-06/01/2024 - s/p PPM - Follow up with Cardiology as scheduled. 4. CKD (chronic kidney disease) stage 4, GFR 15-29 ml/min (HCC) - ICD9: 585.4, ICD10: N18.4 - Managed by Nephrology. 5. Class 1 obesity with body mass index (BMI) of 32.0 to 32.9 in adult, unspecified obesity type, unspecified whether serious comorbidity present - ICD9: 278.00, V85.32, ICD10: E66.811, Z68.32 Komal Cohn DO Return if symptoms worsen or fail to improve, for medication follow up, Blood pressure check already has appointment . Attestation: Scribe Attestation: The patient is seen and examined by Dr. Cohn and the following reflects his/her service. Scribed by Delores Cordoba June 11, 2024 1:49 PMProvider Attestation: IKomal DO personally performed the services described in this documentation. All medical record entries made by the scribe were at my direction and in my presence. I have reviewed the chart and discharge instructions (if applicable) and agree that the record reflects my personal performance and is accurate and complete. Electronically Signed: Komal Cohn DO, June 11, 2024 1:57 PM documented in this encounter [facility] 06-06-2024 Telephone encounter Note Christie with [facility] called and left a voicemail stating the patient is home and they did start of care for SN one time a week. She states the patient will need a hospital follow up appointment after pacemaker placement. Called and spoke with the patient and advised she has an appointment already scheduled for 06/11/24 at 1:00 for hospital follow up. She states she did not know that but she will be here. [facility] 06-06-2024 Miscellaneous Notes Christie with [facility] called and left a voicemail stating the patient is home and they did start of care for SN one time a week. She states the patient will need a hospital follow up appointment after pacemaker placement. Called and spoke with the patient and advised she has an appointment already scheduled for 06/11/24 at 1:00 for hospital follow up. She states she did not know that but she will be here. documented in this encounter [facility] 06-01-2024 Nurse Note RN removed patients ivs. RN reviewed discharge instructions with patient. Patient belongings gathered. Patient ready for discharge waiting for ride. [facility] 06-01-2024 Nurse Note RN removed patients ivs. RN reviewed discharge instructions with patient. Patient belongings gathered. Patient ready for discharge waiting for ride. Report called to [facility] . Pt and family aware of transport to facility. documented in this encounter [facility] 06-01-2024 Miscellaneous Notes Patient Choice Patient Name: MIKEL WINSTON Date of : 1945 All Providers Sent Referral Name: [facility] Home Phone: [phone] Address: [address] [place] [address] Start PACC Note Home Health Referral Educated patient on Home Care and services available. Patient offered choice of available HHC and agreeable to SN services with [facility] - Home Care. Care Types: None Isolation Precautions: No active isolations Social Determinates of Health: Tobacco Use: Medium Risk (04/27/2024) Received from [facility] Patient History Smoking Tobacco Use: Former Smokeless Tobacco Use: Never Passive Exposure: Not on file Social History Substance and Sexual Activity Alcohol Use No Social History Substance and Sexual Activity Drug Use No Does the patient have any financial resource strain? No Does the patient have any food insecurities? No Does the patient have any housing instabilities? No If any of the above is noted as yes - consider a CONSTRUCTION SUPERINTENDENT evaluation once the patient returns home. START PATIENT REGISTRATION INFORMATION Order Information Order Signing Physician: Ariadne Marie MD Service Ordered RN ?: Yes Service Ordered PT ?: No Service Ordered OT ?: No Service Ordered ST ?: No Service Ordered CONSTRUCTION SUPERINTENDENT?:No Service Ordered RECEPTIONIST DOCTOR'S OFFICE?: No Following Physician: KOMAL COHN DO Following Physician Overseeing Physician: KOMAL COHN DO (Required for Residents only) Agreeable to Follow? Yes Date/Time of Call 06/01/24 11:27 AM, Spoke with: Staff Care Coordination Same Day SOC?: No Primary Care Physician: KOMAL COHN DO Primary Care Physician Primary Care Physician Address: [address] [place] [address] / [facility] [id number] Visit Instructions: Recent patient would like Shira again. Declined PT but could probably use it. Service Discharge Location Type: Home with Home Care Service Facility Name: N/A Service Floor Facility: N/A Service Room No: N/A Demographics Patient Last Name: Ravindra Patient First Name: Mikel Language/Communication Barrier: n/a Service Address: [address] [place] [address] Service City: [facility] ST: ID Service ZIP: [address] Service (home) Other phone numbers: Telephone Information: Emergency Contact: Extended Emergency Contact Information Primary Emergency Contact: Arnel Forte Mobile Relation: Child Secondary Emergency Contact: Russell Winston Mobile Relation: Child Admission Information Admit Date: 05/29/2024 Patient status at discharge: Inpatient Admitting Diagnosis: Elevated troponin [R79.89] Elevated brain natriuretic peptide (BNP) level [R79.89] Symptomatic sinus bradycardia [R00.1] Caregiver Information Caregiver First Name: n/a Caregiver Last Name: n/a Caregiver Relationship to Patient n/a Caregiver Phone Number: n/a Caregiver Notes: N/A [employer]-MDconnectME List No END PATIENT REGISTRATION INFORMATION Pt Home Health goal to stay out of hospital COVID Status 1. Do you have any upper respiratory symptoms (cough, SOB, Fever)? No 2. Have you been exposed to anyone with COVID-19 Virus? No Answer only if pending or positive for COVID-19? 1. Agreeable to wear PPE at each visit? No 2. Is the hospital supplying them with PPE upon Discharge? No Start PACC Summary General Report/ Additional Comments 8 y.o. female who follows Dr. 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 for pacemaker need. Discharge Date: 06/01/24 Referral Source-PACC: (Hospital/Unit): [facility] / [id number] A End PACC Note Problem: Knowledge Deficit Goal: Patient/family/caregiver demonstrates understanding of disease process, treatment plan, medications, and discharge instructions Outcome: Progressing Problem: Potential for Compromised Skin Integrity Goal: Skin Integrity is Maintained or Improved Outcome: Progressing Care Management Progress Note PM placed yesterday. Per therapy evaluation. Recommendation is SNF. Patient declines SNF. Agreeable to HC RN. Referral in [facility] to [facility]. Length of Stay (Days): 3 GMLOS: 2.3 The patient is Moderately Stable - Low risk of patient condition declining or worsening The patient's goals for the shift include comfort The clinical goals for the shift include no complications with new pacer and surgical site Goals met Sedation Plan ASA class 2 - patient with mild systemic disease Mallampati class: II - soft palate, uvula, fauces visible. Sedation plan: moderate (conscious sedation) Risks, benefits, and alternatives discussed with patient. Use of blood products discussed with patient who consented to blood products. Problem: Knowledge Deficit Goal: Patient/family/caregiver demonstrates understanding of disease process, treatment plan, medications, and discharge instructions 05/31/2024925 by Krunal Feng RN Outcome: Progressing 05/31/2024925 by Krunal Feng RN Outcome: Progressing Problem: Potential for Compromised Skin Integrity Goal: Skin Integrity is Maintained or Improved 05/31/2024925 by Krunal Feng RN Outcome: Progressing 05/31/2024925 by Krunal Feng RN Outcome: Progressing Goal: Nutritional status is improving Outcome: Progressing Problem: Urinary Incontinence Goal: Perineal skin integrity is maintained or improved Outcome: Progressing Care Management Progress Note Patient now on . Previous noted. NPO-Cardiology following for possible pacemaker. Per therapy evaluation. Recommendation is SNF. I will discuss this with patient today. Length of Stay (Days): 2 GMLOS: No GMLOS Documented The patient is Moderately Stable - Low risk of patient condition declining or worsening The patient's goals for the shift include no chest pain The clinical goals for the shift include no symptomatic bradycardia Goals met over the shift The patient is Moderately Stable - Low risk of patient condition declining or worsening The patient's goals for the shift include rest The clinical goals for the shift include safety Problem: Knowledge Deficit Goal: Patient/family/caregiver demonstrates understanding of disease process, treatment plan, medications, and discharge instructions Outcome: Progressing Problem: Potential for Compromised Skin Integrity Goal: Skin Integrity is Maintained or Improved Outcome: Progressing Problem: Potential for Compromised Skin Integrity Goal: Nutritional status is improving Outcome: Progressing Legal Research Analyst following case for Discharge Needs. Pt is currently not active with [facility], was discharged 05/09/2024. Care Managment Initial Assessment Date: 05/30/2024 Patient Name: Mikel Winston : 1945 Patient Information Source of Information: Patient Cognition/Language: WFL - Within Functional Limits Permission given to speak with patient community relations representative/caregiver as indicated: Yes (DTDelilah Forte or (Bharti), ) Confirmation of Payer with patient/family: Yes Payer Name: [employer] [place]: No Confirmation of Primary Care Physician: Confirmed PCP Name: Komal Cohn Seen in last 2 years?: Yes Primary Caregiver: Self If assistance needed, confirmed caregiver ready, willing and able to care for patient at discharge: Confirmed with: Living Arrangements Current Residence: Apartment Number of Floors 1 Number of Entry Steps: (level entry) Bed/Bath Levels: Both first floor Facility: Facility Name: Plan to Return: Lives with: Alone Support Systems: Children Activities of Daily Living Ambulation: Independent Bathing/Dressing: Independent Elimination/Continence/Toileting: Independent Feeding: Independent Who Assists with Activities of Daily Living: Daughter Arnel manages her medications and provides transportatio at home Instrumental Activities of Daily Living Prescription Coverage: Yes Pharmacy Used: [facility] in [facility] Medication Management: Assistance Type: Dose packaging system Who assists with medication securing and setup?: ZELDA Mortensen Transportation/Shopping: Assistance Provider Transportation/Shopping Assistance Provider Name: DTDelilah Mortensen and/or other family members Transportation Mode: Car Needs Assistance with Transportation at Discharge: No Meal Preparation: Independent Laundry/Cleaning: Independent Finances/Bill Paying: Independent Communication: Independent Types of Care Services/Equipment Utilized Care Services: Dialysis Type: NA Durable Medical Equipment: Walker, Rollator, Glucometer Patient's Goal/Discharge Plan Patient expects to be discharged to: Anticipates returning home with resumption of Home care services Discharge Planning Actions: Continue to follow Patient's Choice Rights and [employer] and Collaborative Relationships Disclosed as Indicated for Post-Acute Care: NA Interdisciplinary Team Engagement: PT/OT, Home Health Care Social Work Referral for: Additional Information: Chart reviewed. Patient admitted to [facility] for treatment of bradycardia. Noted to have possibly been taking too much beta partha at home. Atenolol currently on hold. Regular diet. Cardiology following -plan in place to hold atenolol and monitor. If AV block does not resolve may need pacemaker. If so, will need transferred to [facility] for this procedure. Met with patient at bedside. Explained role. Lives alone in apartment. Level entry. Mostly independent with adls. Bathes and dresses self. Manages own cooking and cleaning. DTR Arnel manages her medications and provides transportation as needed. She reports she has good family support at home. She reports she is up ambulating in room with stand by assistance. She anticipates returning home with resumption of home care services when ready. Has no concerns returning home. Has transportation home when ready. DC plan: Home with resumption of home care. [facility] did request pt/ot evaluations to Dr. Garza. Lilibeth Laurent RN The patient is Moderately Stable - Low risk of patient condition declining or worsening The patient's goals for the shift include to feel better/rest The clinical goals for the shift include stable heart rate documented in this encounter [facility] 06-01-2024 Note Formatting of this n ote might be different from the original. Patient Choice Patient Name: MIKEL WINSTON Date of : 1945 All Providers Sent Referral Name: [facility] At Home Phone: [phone] Address: [address] [place] [address] [facility] 06-01-2024 Note Formatting of this n ote might be different from the original. Patient Choice Patient Name: MIKEL WINSTON Date of : 1945 All Providers Sent Referral Name: [facility] At Home Phone: [phone] Address: [address] [place] [address] [facility] 06-01-2024 History of Present illness Narrative BMP orders for 1 week post hospital prior to PCP appt. documented in this encounter [facility] 06-01-2024 Note Formatting of this n ote is different from the original. Start PACC Note Home Health Referral Educated patient on Home Care and services available. Patient offered choice of available HHC and agreeable to SN services with [facility] at Home - Home Care. Care Types: None Isolation Precautions: No active isolations Social Determinates of Health: Tobacco Use: Medium Risk (04/27/2024) Received from [facility] Patient History Smoking Tobacco Use: Former Smokeless Tobacco Use: Never Passive Exposure: Not on file Social History Substance and Sexual Activity Alcohol Use No Social History Substance and Sexual Activity Drug Use No Does the patient have any financial resource strain? No Does the patient have any food insecurities? No Does the patient have any housing instabilities? No If any of the above is noted as yes - consider a CONSTRUCTION SUPERINTENDENT evaluation once the patient returns home. START PATIENT REGISTRATION INFORMATION Order Information Order Signing Physician: Ariadne Marie MD Service Ordered RN ?: Yes Service Ordered PT ?: No Service Ordered OT ?: No Service Ordered ST ?: No Service Ordered CONSTRUCTION SUPERINTENDENT?:No Service Ordered RECEPTIONIST DOCTOR'S OFFICE?: No Following Physician: KOMAL COHN DO Following Physician Overseeing Physician: KOMAL COHN DO (Required for Residents only) Agreeable to Follow? Yes Date/Time of Call 06/01/24 11:27 AM, Spoke with: Staff Care Coordination Same Day SOC?: No Primary Care Physician: KOMAL COHN DO Primary Care Physician Primary Care Physician [address]: [address] [place] [address] / [place] [phone] Visit Instructions: Recent patient would like Shira again. Declined PT but could probably use it. Service Discharge Location Type: Home with Home Care Service Facility Name: N/A Service Floor Facility: N/A Service Room No: N/A Demographics Patient Last Name: Ravindra Patient First Name: Mikel Language/Communication Barrier: n/a Service Address: [address] Service City: [place] Service ST: [place] Service ZIP: [address] Service (home) Other phone numbers: Telephone Information: Emergency Contact: Extended Emergency Contact Information Primary Emergency Contact: Arnel Forte Mobile Relation: Child Secondary Emergency Contact: Russell Winston Mobile Relation: Child Admission Information Admit Date: 05/29/2024 Patient status at discharge: Inpatient Admitting Diagnosis: Elevated troponin [R79.89] Elevated brain natriuretic peptide (BNP) level [R79.89] Symptomatic sinus bradycardia [R00.1] Caregiver Information Caregiver First Name: n/a Caregiver Last Name: n/a Caregiver Relationship to Patient n/a Caregiver Phone Number: n/a Caregiver Notes: N/A [employer]-MDconnectME List No END PATIENT REGISTRATION INFORMATION Pt Home Health goal to stay out of hospital COVID Status 1. Do you have any upper respiratory symptoms (cough, SOB, Fever)? No 2. Have you been exposed to anyone with COVID-19 Virus? No Answer only if pending or positive for COVID-19? 1. Agreeable to wear PPE at each visit? No 2. Is the hospital supplying them with PPE upon Discharge? No Start PACC Summary General Report/ Additional Comments 8 y.o. female who follows Dr. 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 for pacemaker need. Discharge Date: 06/01/24 Referral Source-PACC: (Hospital/Unit): [facility] / W4-423/W4-423 A End PACC Note [facility] 06-01-2024 Note Formatting of this n ote is different from the original. Start PACC Note Home Health Referral Educated patient on Home Care and services available. Patient offered choice of available HHC and agreeable to SN services with [facility] [facility] Home - Home Care. Care Types: None Isolation Precautions: No active isolations Social Determinates of Health: Tobacco Use: Medium Risk (04/27/2024) Received from [facility] Patient History Smoking Tobacco Use: Former Smokeless Tobacco Use: Never Passive Exposure: Not on file Social History Substance and Sexual Activity Alcohol Use No Social History Substance and Sexual Activity Drug Use No Does the patient have any financial resource strain? No Does the patient have any food insecurities? No Does the patient have any housing instabilities? No If any of the above is noted as yes - consider a CONSTRUCTION SUPERINTENDENT evaluation once the patient returns home. START PATIENT REGISTRATION INFORMATION Order Information Order Signing Physician: Ariadne Marie MD Service Ordered RN ?: Yes Service Ordered PT ?: No Service Ordered OT ?: No Service Ordered ST ?: No Service Ordered CONSTRUCTION SUPERINTENDENT?:No Service Ordered RECEPTIONIST DOCTOR'S OFFICE?: No Following Physician: KOMAL COHN DO Following Physician Overseeing Physician: KOMAL COHN DO (Required for Residents only) Agreeable to Follow? Yes Date/Time of Call 06/01/24 11:27 AM, Spoke with: Staff Care Coordination Same Day SOC?: No Primary Care Physician: KOMAL COHN DO Primary Care Physician Primary Care Physician Address: [address] [place] [address] / [place] [id number] Visit Instructions: Recent patient would like Shira again. Declined PT but could probably use it. Service Discharge Location Type: Home with Home Care Service Facility Name: N/A Service Floor Facility: N/A Service Room No: N/A Demographics Patient Last Name: Ravindra Patient First Name: Mikel Language/Communication Barrier: n/a Service Address: [address] [place] [address]: [place] Service ST: [place] Service ZIP: [address] Service (home) Other phone numbers: Telephone Information: Emergency Contact: Extended Emergency Contact Information Primary Emergency Contact: Arnel Forte Mobile Relation: Child Secondary Emergency Contact: Russell Winston Mobile Relation: Child Admission Information Admit Date: 05/29/2024 Patient status at discharge: Inpatient Admitting Diagnosis: Elevated troponin [R79.89] Elevated brain natriuretic peptide (BNP) level [R79.89] Symptomatic sinus bradycardia [R00.1] Caregiver Information Caregiver First Name: n/a Caregiver Last Name: n/a Caregiver Relationship to Patient n/a Caregiver Phone Number: n/a Caregiver Notes: N/A [employer] List No END PATIENT REGISTRATION INFORMATION Pt Home Health goal to stay out of hospital COVID Status 1. Do you have any upper respiratory symptoms (cough, SOB, Fever)? No 2. Have you been exposed to anyone with COVID-19 Virus? No Answer only if pending or positive for COVID-19? 1. Agreeable to wear PPE at each visit? No 2. Is the hospital supplying them with PPE upon Discharge? No Start PACC Summary General Report/ Additional Comments 8 y.o. female who follows Dr. 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 for pacemaker need. Discharge Date: 06/01/24 Referral Source-PACC: (Hospital/Unit): [facility] / W4-423/W4-423 A End PACC Note [facility] 06-01-2024 Plan of care note Problem: Knowledge Deficit Goal: Patient/family/caregiver demonstrates understanding of disease process, treatment plan, medications, and discharge instructions Outcome: Progressing Problem: Potential for Compromised Skin Integrity Goal: Skin Integrity is Maintained or Improved Outcome: Progressing [facility] 06-01-2024 Note [facility] 06-01-2024 Hospital course Narrative Images from the original note were not included. Discharge Summary Mikel Winston : 1945 ADMIT DATE: 05/29/2024 DISCHARGE DATE: 06/01/2024 PRIMARY CARE PHYSICIAN: KOMAL COHN VISIT STATUS: Admission CODE STATUS: Full Code DISCHARGE DIAGNOSES: Principal Problem: Symptomatic sinus bradycardia HOSPITAL COURSE: Mikel Winston is a 78 yo female with past medical history of CAD s/p CABG (2017) and PCI (2018, moderate aortic stenosis, T2DM, CKD stage 3, HTN, and hypothyroidism who presented to [facility] 05/29/24 for bilateral leg swelling, shortness of breath and fatigue x1 week, noted her pulse ox at home with HR of 35 BPM. EKG on arrival showed 2:1 AV block HR 30's, her atenolol was held at that time in hopes the bradycardia would resolve. Decision was made to transfer to [facility] 05/30 for PPM placement. She is now s/p [employer] PPM implant with Dr. Poole on 05/31/25. Today she is seen up in chair. She has no complaints other than just wanting to go home. She denies chest pain, shortness of breath, dizziness, palpitations, syncope, or near syncope. Left upper chest incision is clean, dry intact without ecchymosis or hematoma. Device check today shows normal function. CXR shows stable lead position and no pneumothorax. Reviewed by Dr. Poole. Post-implant teaching and restrictions reviewed. Booklet given. No anticoagulants x 48 hours. SIGNIFICANT DIAGNOSTIC STUDIES: 2 View Chest Xray 06/01/24 FINDINGS: The lateral view is limited Cardiomediastinal silhouette: Left-sided pacemaker is noted with leads overlying the right atrium and right ventricle. Median sternotomy wires and mediastinal surgical clips are noted. Lungs: Interstitial thickening is noted similar to previous exam. Bones: Unremarkable IMPRESSION: Diffuse interstitial thickening similar to previous exam CONSULTANTS: N/A RECOMMENDED NEXT STEPS: Follow up with device clinic, Nephrology appt Jun 11 @ 2:20 in [facility], PCP BMP in one week post hospital discharge prior to PCP appt. DISCHARGE MEDICATIONS: Medication List START taking these medications trolamine salicylate 10 % cream Commonly known as: Aspercreme Apply topically every 8 hours as needed (for muscle pain). CHANGE how you take these medications furosemide 20 MG tablet Commonly known as: Lasix 3 days in a row What changed: how much to take how to take this when to take this reasons to take this CONTINUE taking these medications alpha tocopherol 100 units capsule Commonly known as: Vitamin E aspirin 81 MG EC tablet cyanocobalamin 100 MCG tablet Commonly known as: Vitamin B-12 ferrous sulfate 325 (65 Fe) MG tablet levothyroxine 50 MCG tablet Commonly known as: Synthroid, Levoxyl TAKE 1 TABLET BY MOUTH DAILY rosuvastatin 20 MG tablet Commonly known as: Crestor Take 1 tablet (20 mg) by mouth daily. SITagliptin 25 MG tablet Commonly known as: Januvia Take 1 tablet (25 mg) by mouth daily. * cholecalciferol 200 Unit tablet split tablet Commonly known as: Vitamin D3 * Vitamin D 125 MCG (5000 UT) capsule * This list has 2 medication(s) that are the same as other medications prescribed for you. Read the directions carefully, and ask your doctor or other care provider to review them with you. Where to Get Your Medications Information about where to get these medications is not yet available Ask your nurse or doctor about these medications trolamine salicylate 10 % cream DIET: Adult diet Regular ACTIVITY: No heavy lifting. COMPLEXITY OF FOLLOW UP: [x] Moderate Complexity: follow up within 7-14 calendar days (28216) [] Severe Complexity: follow up within 7 calendar days (60819) FOLLOW UP TESTING, PENDING RESULTS OR REFERRALS AT TRANSITIONAL CARE VISIT: [] Yes [x] No PENDING STUDIES: None DISPOSITION: Home Follow up with Device Clinic [address] [place] [address] [address] Go on 06/20/2024 wound check appt time @ 1:00pm Pravin Poole MD [address] [facility] [id number] Go on 08/31/2024 appt time @ 1:15pm in [address] INSTRUCTIONS TO MA/SW: Please call patient on day after discharge (must document patient contacted within 2 business days of discharge). FOLLOW UP QUESTIONS FOR MA/SW: 1. Did you get medications filled and taking them as instructed from discharge? 2. Are you following your discharge instructions from your hospital stay? 3. Please confirm patient is scheduled for a follow up appointment within the above time frame. DISCHARGE TIME: < 30 min SIGNED: GARCIA Meesk CNP 06/01/2024, 1:08 PM Cosigned by Ariadne Marie MD at 06/01/2024 3:10 PM EDT documented in this encounter [facility] 06-01-2024 History of Present illness Narrative Images from the original note were not included. PHYSICAL THERAPY [facility] Treatment Note Name/MRN: Mikel Winston ([id number]) Date of : 1945 Age: 78 y.o. Room/Bed: W4-423/W4-423 A Discharge Recommendation: Jail Facility Equipment Needed: No Prior Level of Function Prior Level of ADL Function: Independent Prior Level of Mobility: Independent; Device: Rollator Prior Level of Transfers: Independent Assessment Pt needs assist with transfers and gait; pt s/p PPM yesterday; ok for PT per RN; pt up in chair; reviewed PPM precautions; pt lives alone and is at risk for falls; recommend SNF level therapies post acute care. 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 Fall Risk: Jaramillo Fall Risk Score: 60 (Low Risk) Jaramillo Fall Risk Score: 60 (High Risk) Precautions/Restrictions: Right LE Weight Bearing: Weight Bearing As Tolerated Left LE Weight Bearing: Weight Bearing As Tolerated S/p PPM 06/01 Overall Cognitive Status: WFL Overall Orientation Status: Oriented x4 Family/Caregiver Present: none Objective Bed Mobility Sit to supine: Mod Assist Transfers/Mobility Sit to stand: Min Assist Stand to sit: Min Assist Device(s) used: Rollator Ambulation Ambulation 1 Assistive device(s) used: Rollator Assist level: Min Assist Distance (ft): 12 feet and 100 feet Quality of gait: slow elba, flexed at hips Plan Continue acute PT per plan of care. Safety/Education Safety Safety Devices in place: left in bed, gait belt, and nurse notified Restraints: No Education Education Given To: patient Education Provided: PT Role, PT Goals, Precautions, Fall Prevention Education, and Discharge Recommendations Education Method: Verbal Barriers to Learning: Education Outcome: Outcome Measures AM-PAC AM-PAC Inpatient Mobility Raw Score (No Stairs) : 15 JH-HLM JH-HLM Score: Walked 25 ft or more (i.e. walked outside of room) Goals Patient Stated Goal: get my heart back in working order Encounter Problems Encounter Problems (Active) Exercise Patient will complete lower extremity exercises for 1-2 sets / 5-10 reps in order to improve strength and activity tolerance for mobility. (Not Addressed) Start: 05/30/24 Expected End: 06/06/24 Mobility Patient will ambulate 100 feet with modified independence and least restrictive device in order to improve safety and independence with mobility. (Progressing) Start: 05/30/24 Expected End: 06/06/24 Transfers Patient will perform bed mobility with modified independence in order to improve independence and prepare for out of bed mobility. (Progressing) Start: 05/30/24 Expected End: 06/06/24 Patient will complete functional transfer with least restrictive device with modified independence in order to prepare for ambulation. (Progressing) Start: 05/30/24 Expected End: 06/06/24 Therapy Time Individual Co-treatment Time In 1004 Time Out 1021 Minutes 17 Timed Code Treatment Minutes: 12 Minutes (GT) Variance: 5 (bathroom) This PT wore gloves throughout the entire session. Wayne Tripathi, PT Images from the original note were not included. PHYSICAL THERAPY [facility] Re-Evaluation Name/MRN: Mikel Winston ([id number]) Evaluation Date: 05/31/2024 Date of : 1945 Admission Date: 05/29/2024 6:28 PM Age: 78 y.o. Room[facility]Bed: [facility] A Discharge Recommendation: Jail Facility Equipment Needed: No Assessment IMPRESSION: PT re-eval completed; pt transferred from [facility] for impending pacemaker placement. Min assist x 1 with bed mobility, transfers, and ambulation using rollator. Limited by fatigue and SOBOE, requiring frequent rest breaks. Recommended SNF leve therapy upon disch. All previous goals still appropriate at this time. Admitting Diagnosis: elevated troponin levels, symptomatic bradycardia Prognosis: fair Performance Deficits /Impairments: Decreased Functional Mobility, Decreased Strength, Decreased Endurance, and Decreased Balance Decision Making: Medium Complexity Subjective Pt lying upright in bed. Agreeable to therapy, stating her HR has been in the 30s and she will be getting a pacemaker either today or tomorrow Pain: Pt denies any current pain. Past Medical History: Past Medical History: Diagnosis Date CAD (coronary artery disease) Cirrhosis of liver (HCC) Diabetes mellitus (HCC) Hypertension Osteoporosis Thyroid disease Past Surgical History: Past Surgical History: Procedure Laterality Date APPENDECTOMY CHOLECYSTECTOMY CORONARY ARTERY BYPASS GRAFT TOTAL KNEE ARTHROPLASTY Right TUBAL LIGATION Admission Diagnosis: Patient Active Problem List Diagnosis Date Noted Angina at rest ([facility]) 12/26/2017 Cellulitis of right lower extremity 01/28/2024 BARRY (acute kidney injury) ([facility]) 11/18/2022 UTI (urinary tract infection) 11/18/2022 Coronary artery disease involving coronary bypass graft of [place] heart without angina pectoris 09/30/2022 Nonrheumatic aortic valve stenosis 09/30/2022 Essential hypertension 09/30/2022 Dyslipidemia 09/30/2022 Generalized edema 01/27/2022 Diabetes ([facility]) 01/27/2022 Symptomatic sinus bradycardia 05/29/2024 Medical Precautions: No active isolations Proper PPE donned/doffed in accordance with facility standards. Fall Risk: Jaramillo Fall Risk Score: 60 (Low Risk) Jaramillo Fall Risk Score: 60 (High Risk) Precautions/Restrictions: Right LE Weight Bearing: Weight Bearing As Tolerated Left LE Weight Bearing: Weight Bearing As Tolerated Family/Caregiver Present: none Overall Cognitive Status: WNL Overall Orientation Status: Oriented x4 Vision: wears glasses for reading and and are NOT being used during the eval Hearing: normal Social/Functional History Patient admitted from home. Lives With: Alone Type of Home: apartment Home Layout: Single Level Home Home Access: Level Entry Toilet: Standard Home Equipment: rollator and shower seat Homemaking Responsibilities: Independent Receives Help From: Family Active Sizing Sprayer: No Prior Level of Function Prior Level of ADL Function: Independent Prior Level of Mobility: Independent; Device: Rollator Prior Level of Transfers: Independent Per pt, still mostly independent with ADLs. Does use rollator for mobility. Objective Lower Extremity Assessment AROM: WFL PROM: WFL Strength: Exceptions: grossly 3/5 throughout as noted with mobility Bed Mobility: Supine to sit: Min Assist Scooting: Min Assist Transfers Sit to stand: Min Assist Stand to sit: Min Assist X2 trials from EOB Ambulation Ambulation 1 Assistive device(s) used: Rollator Assist level: Min Assist Distance (ft): 50' prolonged seated rest break due to SOBOE Quality of gait: step to pattern, slow elba Ambulation 2 Assistive device(s) used: Rollator Assist level: Min Assist Distance (ft): additional 65' Quality of gait: step to pattern, slow elba Balance During Session: Posture: fair Sitting - Static: SBA Sitting - Dynamic: SBA Standing - Static: Min Assist Standing - Dynamic: Min Assist Outcome Measures AM-PAC How much HELP from another person do you currently need Turning from your back to your side while in a flat bed without using bedrails?: A Little Moving from lying on your back to sitting on the side of a flat bed without using bedrails?: A Little Moving to and from a bed to a chair (including a wheelchair)?: A Little Standing up from a chair using your arms (wheelchair or bedside chair)?: A Little Walking in a hospital room?: A Little Stair climbing assessed?: No AM-PAC Inpatient Mobility Raw Score (No Stairs) : 15 JH-HLM -HL Score: Walked 25 ft or more (i.e. walked outside of room) Plan Pt would benefit from skilled acute PT services to address Strengthening, ROM, Gait Training, Balance Training, Functional Mobility Training, Endurance Training, and Pain Management. Frequency: 3-5x/week for 4 weeks Barriers: Pain, Impaired balance, Lower extremity weakness, Decreased endurance, and Limited family support Safety/Education Safety Safety Devices in place: All fall risk precautions in place, call light within reach, left in bed, gait belt, and nurse notified Restraints: No Education Education Given To: patient Education Provided: PT Role, PT Goals, Gait Training, Plan of Care, and Home Exercise Program Education Method: Verbal Barriers to Learning: None Goals Patient Stated Goal: get my heart back in working order Encounter Problems Encounter Problems (Active) Exercise Patient will complete lower extremity exercises for 1-2 sets / 5-10 reps in order to improve strength and activity tolerance for mobility. (Not Addressed) Start: 05/31/24 Expected End: 06/28/24 Mobility Patient will ambulate 100 feet with modified independence and least restrictive device in order to improve safety and independence with mobility. (Progressing) Start: 05/31/24 Expected End: 06/28/24 Transfers Patient will perform bed mobility with modified independence in order to improve independence and prepare for out of bed mobility. (Progressing) Start: 05/31/24 Expected End: 06/28/24 Patient will complete functional transfer with least restrictive device with modified independence in order to prepare for ambulation. (Progressing) Start: 05/31/24 Expected End: 06/28/24 Therapy Time Individual Co-treatment Time In 1054 Time Out 1117 Minutes 23 Timed Code Treatment Minutes: (1 re-eval, 1 unit gait) Amanda Gabriel PT Patient's Physical Therapy Plan of Care supervision is transferred to a [facility] Physical Therapist. Goals and/or treatment plan was established in collaboration with patient/family/other representatives. [facility] [place] [facility] Cardiology /Electrophysiology Progress Note HPI / Interval History: Short of breath, fatigue. Patient complains of bilateral shoulder pain. Left shoulder pain has been going on for several months. Right shoulder pain happened after she tried to throw trash into the trash bin a few days ago. Assessment/Plan HF NYHA Class [] I [] II [] III [] IV []Unable to assess Second-degree AV block: Patient is symptomatic heart block plus right bundle branch block. She is scheduled for placement of permanent pacemaker today. Shoulder pain: On my examination the patient has no point tenderness of her left shoulder. She can abduct her left shoulder. On chest x-ray there is no evidence of significant arthritis. I do not recommend additional imaging prior to placement of permanent pacemaker. Symptomatic management after pacemaker placement. Medications: aspirin, 81 mg, Oral, Daily cyanocobalamin, 100 mcg, Oral, Daily [Held by provider] enoxaparin, 30 mg, SubCUTAneous, Daily ferrous sulfate, 325 mg, Oral, Daily with breakfast insulin lispro, 0-6 Units, SubCUTAneous, TID WC And insulin lispro, 0-6 Units, SubCUTAneous, Nightly levothyroxine, 50 mcg, Oral, qAM AC [Held by provider] linaGLIPtin, 5 mg, Oral, Daily pantoprazole, 40 mg, Oral, qAM AC rosuvastatin, 20 mg, Oral, Daily vancomycin, 1,000 mg, IntraVENous, Once Infusion Medications: Physical Examination: Vitals: 05/30/24 2139 05/31/24 0206 05/31/24 0530 05/31/24 0851 BP: (!) 126/49 (!) 113/46 (!) 117/40 (!) 116/42 BP Location: Left arm Left arm Left arm Left arm Patient Position: Lying Lying Lying Lying Pulse: (!) 35 (!) 32 (!) 30 (!) 32 Resp: 18 18 18 16 Temp: 36.7 C (98 F) 36.7 C (98 F) 36.3 C (97.3 F) 36.4 C (97.6 F) TempSrc: Temporal Temporal Temporal Temporal SpO2: 94% 92% 92% 95% Weight: Height: Intake/Output Summary (Last 24 hours) at 05/31/2024 0901 Last data filed at 05/30/2024 1815 Gross per 24 hour Intake 550 ml Output -- Net 550 ml Patient Vitals for the past 168 hrs: Weight Weight Method 05/29/24 2229 213 lb (96.6 kg) -- 05/29/24 1840 197 lb (89.4 kg) Stated Physical Exam Constitutional: Appearance: She is obese. HENT: Head: Atraumatic. Cardiovascular: Rate and Rhythm: Regular rhythm. Bradycardia present. Heart sounds: No murmur heard. Pulmonary: Effort: Pulmonary effort is normal. Breath sounds: Normal breath sounds. Musculoskeletal: Right shoulder: Normal. No tenderness. Normal range of motion. Left shoulder: Normal. No tenderness. Normal range of motion. Right lower leg: No edema. Left lower leg: No edema. Neurological: Mental Status: She is alert. Laboratory Tests: Recent Labs 05/29/24185505/31/24211 NA 137 136 K 4.0 4.1 CL 106 108* CO2 20* 21* BUN 42* 57* CREATININE 2.01* 2.53* Recent Labs 05/29/24185505/31/24211 WBC 6.3 6.4 HGB 10.1* 8.8* HCT 31.2* 27.1* MCV 97.8 97.5 PLT 111* 85* Recent Labs 05/29/24185505/29/24 2203 05/30/24 0111 TROPONINI 0.124* 0.149* 0.145* Recent Labs 05/29/241855 BNP 3,820* No results for input(s): TRIG, HDL, LDLCALC, CHOL in the last 72 hours. No results found for: LDLCHOLESTER Lab Results Component Value Date TSH 3.912 05/30/2024 EF BP Date Value Ref Range Status 04/18/2024 63 55 - 100 % Final EF Physician Date Value Ref Range Status 12/08/2022 45 % Final 04/18/24 TRANSTHORACIC ECHOCARDIOGRAM (TTE) COMPLETE (CONTRAST/BUBBLE/3D PRN) 04/18/2024 2:01 PM (Final) Interpretation Summary Left Ventricle: Left ventricle size is normal. Normal wall thickness. Normal left ventricular systolic function. EF by 2D Simpsons Biplane is 63%. Normal wall motion. Right Ventricle: Right ventricle is dilated. Reduced systolic function. Aortic Valve: Trileaflet. Thickened cusps. Calcified cusps. No regurgitation. Moderate stenosis of the aortic valve. AV mean gradient is 26 mmHg. AV peak gradient is 43 mmHg. AV area by continuity VTI is 1.2 cm2. Mitral Valve: Mild (1+) regurgitation. Tricuspid Valve: Moderate (2+) regurgitation. Pulmonic Valve: Mild to moderate (1-2+) regurgitation. Left Atrium: Left atrium is dilated. Right Atrium: Right atrium is dilated. IVC/SVC: IVC diameter is normal and decreases greater than 50% during inspiration; therefore the estimated right atrial pressure is normal (~3 mmHg). Signed by: Huy Frederick on 04/18/2024 2:01 PM Other reports reviewed: Cardiac Tests: ECG: Sinus rhythm with Mobitz 2 AV block, right bundle branch block. Tracing reviewed. Telemetry findings reviewed: Marked bradycardia, second-degree AV block type II EF BP Date Value Ref Range Status 04/18/2024 63 55 - 100 % Final EF Physician Date Value Ref Range Status 12/08/2022 45 % Final Ariadne Marie MD Date Of Service 05/31/2024 Images from the original note were not included. OCCUPATIONAL THERAPY [facility] Name/MRN: Mikel Winston ([id number]) Date: 05/31/2024 Orders received for OT evaluation and treat. Per medical chart, pt scheduled for PPM today. Will hold therapy and continue to follow. Dino Coelho OT Nutrition rescreen completed. Chart reviewed. Patient to be monitored and followed by the diet field operations technician. Brief Progress Note: Mrs. Winston is a pleasant 78 YO female who presented to [facility] from [facility] after being seen by cardiology today for symptomatic bradycardia and was found to be in 2:1 Mobitz type II AV Block. She was transported to [facility] for EP evaluation and PPM placement. She is known to Dr. Joel and has a PMHx of coronary artery disease with CABG in 2010, PCI in 2018, mild aortic stenosis, CKD IV, TIIDM, HTN, hypothyroidism and hearing loss. On assessment this evening Mrs. Winston is resting comfortably. Reports that at baseline she has chronic fatigue however over the past ~ week she has had worsening fatigue. While at home she checked her pulse ox due to feeling short of breath and was found to have a HR in the 30's and was brought to the ED for evaluation. She reports that prior to coming in she was taking all of her medication as prescribed including her synthroid and atenolol. She has PRN furosemide at home which she takes if she starts to develop LE edema. She denies any lightheadedness, dizziness, chest pain or SOB. She is have R arm pain however she attributes this to throwing her trash away last week and since then it has bothered her. Reviewed telemetry since arrival and she is in mobitz type II with 2:1 AV block. Her most recent ECHO was in 04/2024 which demonstrated a preserved LV function of 63%, RV is mildly dilated and dysfunctional, mild aortic stenosis with mean gradient of 26 mmHg and valve area of 1.2 by VTI, 1+MR, 2+ TR. Last TSH of 1.5 in 01/2024 (on synthroid). Assessment/Plan: Mobitz Type II: 2:1 AV Block -Per sign out Dr. Joel had spoken with an EP attending her and tentetively have her planned for PPM tomorrow (05/31/24). She has had a recent ECHO demonstrating preserved LV function. Will check a repeat TSH to rule out hypothyroidism as a cause for her block. Additionally, will continue to hold atenolol as well as blood thinners and place her NPO at midnight for possible PPM tomorrow 05/31/24. Formal consult to EP placed. -Please page myself or Dr. Sandoval after 11PM with any question or if the HR drops below 30 BPM as she may have developed worsening AV block requiring CCU transfer. Images from the original note were not included. PHYSICAL THERAPY [facility] Initial Evaluation Name/MRN: Mikel Winston ([id number]) Evaluation Date: 05/30/2024 Date of : 1945 Admission Date: 05/29/2024 6:28 PM Age: 78 y.o. Room[facility]Bed: [facility] Discharge Recommendation: Jail Facility, Continue to assess pending progress Equipment Needed: No Assessment IMPRESSION: Pt is a 78 y.o. female admitted 05/29 with bradycardia. Per cardiology, hold medications and monitor and if no improvement possible pacemaker. Pt was previously independent with functional mobility with FWW vs rollator. Pt is currently SBA for bed mobility, min A to CGA for functional transfers, CGA for short distance ambulation with FWW. Pt is currently limited by endurance, fatigue and will benefit from acute skilled PT to address current deficits. Recommend SNF pending progress. Admitting Diagnosis: admitted 05/29 with bradycardia Prognosis: good Performance Deficits /Impairments: Increased Pain, Decreased Functional Mobility, Decreased Strength, Decreased Endurance, and Decreased Balance Decision Making: Medium Complexity Subjective Pt pleasant and agreeable to therapy session Per RN okay for therapy Pain: Pt denies any current pain. [place] Pain Ratin = Hurts even more Pain Location: R shoulder Past Medical History: Past Medical History: Diagnosis Date CAD (coronary artery disease) Cirrhosis of liver (HCC) Diabetes mellitus (HCC) Hypertension Osteoporosis Thyroid disease Past Surgical History: Past Surgical History: Procedure Laterality Date APPENDECTOMY CHOLECYSTECTOMY CORONARY ARTERY BYPASS GRAFT TOTAL KNEE ARTHROPLASTY Right TUBAL LIGATION Admission Diagnosis: Patient Active Problem List Diagnosis Date Noted Angina at rest (HCC) 12/26/2017 Cellulitis of right lower extremity 01/28/2024 BARRY (acute kidney injury) ([facility]) 11/18/2022 UTI (urinary tract infection) 11/18/2022 Coronary artery disease involving coronary bypass graft of [place] heart without angina pectoris 09/30/2022 Nonrheumatic aortic valve stenosis 09/30/2022 Essential hypertension 09/30/2022 Dyslipidemia 09/30/2022 Generalized edema 01/27/2022 Diabetes ([facility]) 01/27/2022 Medical Precautions: No active isolations Proper PPE donned/doffed in accordance with facility standards. Fall Risk: Jaramillo Fall Risk Score: 45 (Low Risk) Jaramillo Fall Risk Score: 45 (High Risk) Precautions/Restrictions: N/A Family/Caregiver Present: none Overall Cognitive Status: WFL Overall Orientation Status: Oriented x4 Vision: not assessed this session Hearing: normal Social/Functional History Patient admitted from home. Lives With: Alone Type of Home: single family home Home Layout: Single Level Home Home Access: Level Entry Bathroom Shower/Tub: Tub/Shower Combo and Washes at sink/bed Toilet: Standard Home Equipment: cane Homemaking Responsibilities: Independent Receives Help From: None Active Sizing Sprayer: No Prior Level of Function Prior Level of ADL Function: Independent Prior Level of Mobility: Independent; Device: Front wheeled walker and Rollator Prior Level of Transfers: Independent Objective Lower Extremity Assessment AROM: WFL Strength: Exceptions: decreased in BLE noted with functional mobility Bed Mobility: Supine to sit: SBA Sit to supine: SBA Pt completes bed mobility at SBA with HOB elevated. Increased time required to complete. Transfers Sit to stand: Min Assist Stand to sit: Contact Guard Pt completes x2 sit<->stand from EOB to FWW. Pt requires min A x1 to boost into standing. CGA to monitor controlled descent. Pt requires cues for hand placement. Increased time to elevate. Ambulation Ambulation 1 Assistive device(s) used: Front wheeled walker Assist level: Contact Guard Distance (ft): 40, ~3 foot EOB Quality of gait: No LOB, reciprocal stepping, shuffling, slow elba Pt demos short, shuffling gait pattern, decreased gait speed. Increased time to complete short distance ambulation. Cues provided for upright posture, maintain LEILANI within FWW with good carryover of cues. Noted SOBOE following ambulation, HR 42 decreasing to 35 following ambulation, RN notified. Outcome Measures AM-PAC How much HELP from another person do you currently need Turning from your back to your side while in a flat bed without using bedrails?: A Little Moving from lying on your back to sitting on the side of a flat bed without using bedrails?: A Little Moving to and from a bed to a chair (including a wheelchair)?: A Little Standing up from a chair using your arms (wheelchair or bedside chair)?: A Little Walking in a hospital room?: A Little Stair climbing assessed?: No AM-PAC Inpatient Mobility Raw Score (No Stairs) : 15 Plan Pt would benefit from skilled acute PT services to address Strengthening, Gait Training, Balance Training, Functional Mobility Training, Endurance Training, Safety Education and Training, Stair Training, Pain Management, Equipment Evaluation/Education, Patient/Caregiver Training, and Positioning. Frequency: 5 visits during current hospital admission or until additional recommendations are made Barriers: Impaired balance, Lower extremity weakness, Upper extremity weakness, Decreased endurance, and lives alone Safety/Education Safety Safety Devices in place: All fall risk precautions in place, call light within reach, left in bed, gait belt, patient at risk for falls, nurse notified, and no alarms engaged upon entry Restraints: N/A Education Education Given To: patient Education Provided: PT Role, PT Goals, Gait Training, Plan of Care, Transfer Training, Energy Conservation, Equipment, Discharge Recommendations, and Benefits of Increasing Activity Education Method: Verbal and Demonstration Barriers to Learning: None Education Outcome: Verbalized Understanding, Demonstrated Understanding, and Continued Education Needed Goals Patient Stated Goal: Pt did not state Encounter Problems Encounter Problems (Active) Exercise Patient will complete lower extremity exercises for 1-2 sets / 5-10 reps in order to improve strength and activity tolerance for mobility. Start: 05/30/24 Expected End: 06/06/24 Mobility Patient will ambulate 100 feet with modified independence and least restrictive device in order to improve safety and independence with mobility. Start: 05/30/24 Expected End: 06/06/24 Transfers Patient will perform bed mobility with modified independence in order to improve independence and prepare for out of bed mobility. Start: 05/30/24 Expected End: 06/06/24 Patient will complete functional transfer with least restrictive device with modified independence in order to prepare for ambulation. Start: 05/30/24 Expected End: 06/06/24 Therapy Time Individual Co-treatment Time In 1502 Time Out 1513 Minutes 11 Sadia Navarro PT Patient's Physical Therapy Plan of Care supervision is transferred to a [facility] Physical Therapist. Goals and/or treatment plan was established in collaboration with patient/family/other representatives. Images from the original note were not included. [facility] [address]U [address] [place] [id number] Dept: [phone] Contacted the electrophysiology service at the [facility]. Our headend technician reviewed the consult and does not expect the 2-1 AV block to improve with time. [facility] Hospitalist Progress Note 05/30/2024 [phone]: Please page me ([phone]) for patient care issues. [phone]: Please page [facility] Hospitalist for any issues. Subjective: Admit Date: 05/29/2024 PCP: KOMAL COHN DO Room#: B2-268/B2-268 B Mikel Winston is a 78 y.o. female who presents with No Principal Problem: There is no principal problem currently on the Problem List. Please update the Problem List and refresh. Interval History: 78-year-old female patient is admitted yesterday with bradycardia that was initially discovered by a home pulse oximeter. On telemetry she showed first-degree AV block along with right bundle branch block., She is on atenolol at home which was held. Cardiology was consulted, telemetry now shows Mobitz type II second-degree AV block. EP was consulted over the phone and they recommended transfer to [facility] for possible pacemaker. Discussed with patient and she is agreeable . Denies chest pain, sob, abdominal pain, nausea, vomiting, diarrhea, constipation, fevers, or chills. Adult diet Regular 24HR INTAKE/OUTPUT: Intake/Output Summary (Last 24 hours) at 05/30/2024 1235 Last data filed at 05/30/2024 0551 Gross per 24 hour Intake 240 ml Output -- Net 240 ml LABS: CBC: Recent Labs 05/29/241855 WBC 6.3 RBC 3.19* HGB 10.1* HCT 31.2* MCV 97.8 RDW 14.2 PLT 111* BMP: Recent Labs 05/29/241855 NA 137 K 4.0 CL 106 CO2 20* BUN 42* CREATININE 2.01* GLUCOSE 122* CALCIUM 9.5 ANIONGAP 11 LIVER PROFILE:No results for input(s): AST, ALT, BILITOT, ALKPHOS, PROT in the last 72 hours. No lab exists for component: LABALBU PT/INR: No results for input(s): PROTIME, INR in the last 72 hours. CARDIAC ENZYMES: Recent Labs 05/29/24185505/29/24220205/30/24 0111 TROPONINI 0.124* 0.149* 0.145* Procalcitonin: No results found for: PROCAL Objective: Vitals: BP (!) 110/45 Pulse (!) 35 Temp 36.4 C (97.5 F) (Temporal) Resp 18 Ht 5' 4 (1.626 m) Wt 213 lb (96.6 kg) SpO2 96% BMI 36.56 kg/m Pulse Ox: SpO2 Av.7 % Min: 94 % Max: 100 % Supplemental O2: 05/30/2024 General appearance: No apparent distress, appears stated age, AAOX Oral: Tongue is semi-moist Cardiovascular: S1/S2 heard, RRR, 3/6 systolic murmur Respiratory: Diminished breath sounds bilaterally abdomen: Soft, non-tender, non-distended bowel sounds positive Musculoskeletal: No obvious deformities seen, mild peripheral edema no calf tenderness Skin: No rash or lesions Medications: aspirin, 81 mg, Oral, Daily cyanocobalamin, 100 mcg, Oral, Daily enoxaparin, 30 mg, SubCUTAneous, Daily ferrous sulfate, 325 mg, Oral, Daily with breakfast insulin lispro, 0-6 Units, SubCUTAneous, TID WC And insulin lispro, 0-6 Units, SubCUTAneous, Nightly levothyroxine, 50 mcg, Oral, qAM AC linaGLIPtin, 5 mg, Oral, Daily pantoprazole, 40 mg, Oral, qAM AC rosuvastatin, 20 mg, Oral, Daily PRN medications: acetaminophen OR acetaminophen, aluminum & magnesium hydroxide-simethicone OR calcium carbonate, dextrose, dextrose, glucagon (rDNA), glucose, ondansetron ODT OR ondansetron, polyethylene glycol (PEG) 3350 Assessment Bradycardia= tele, cardiology consult reviewed, transferred to [facility] Mobitz type II block-stopped atenolol Elevated troponin, cardiology following Type 2 DM w hyperglycemia -check blood sugars q. ACH S and insulin sliding scale Chronic problems CKD stage 3 , creatinine baseline at 2.01 Aortic stenosis . Moderate History of CABG, CAD HTN Hypothyroidism -on levothyroxine, will check TSH GERD-on PPI Hyperlipidemia-on statin Plan discussed with cardiology service and stopped atenolol Reviewed CBC and BMP ordered CBC and BMP in a.m. EP service was consulted and they recommended transfer to [facility], for possible pacemaker placement Reached out to [facility] and she will be admitted to Dr. Marie service -am labs, replace lytes prn -increase activity Diet Adult diet Regular DVT Prophylaxis [x] Lovenox, [] Heparin, [] SCDs, [] Ambulation [] Already on Anticoagulation GI Prophylaxis [x] PPI, [] H2 Partha, [] Carafate, [] Diet/Tube Feeds Code Status Full Code Disposition Patient requires continued admission due to bradycardia and pacemaker placement MDM [] Low, [] Moderate,[x] High Patient's risk as above Total time spent (which include face to face and non face to face encounters) : minutes Toxic drug monitoring/narrow therapeutic index drug monitoring : # Drug name : Insulin # Route administered : Subcutaneous # Method of monitoring : Hypoglycemia monitoring for blood sugar checks Extended Emergency Contact Information Primary Emergency Contact: Arnel Forte Mobile Relation: Child Secondary Emergency Contact: Russell Winston Mobile Relation: Child Advance Directive: Full Code Discharge planning: TBD Louise Garza MD Division of Hospitalist Medicine Inpatient Medical Services/[facility] Images from the original note were not included. [facility] ED [address] [facility] [address] Dept: [phone] I was asked about this patient's bradycardia. She has a history of aortic stenosis, probably not severe and chronic kidney disease. She was on atenolol as an outpatient. She came in with what is probably symptomatic bradycardia. Her electrocardiogram shows 2-1 AV block, sinus rhythm. Her admission laboratory studies show a creatinine of 2. 0, potassium 4.0, GFR 25, troponin 0.124, NT proBNP 3820, hemoglobin 10.1, platelets 111. Reviewing the vital signs so far her heart rate is consistently in the 30s, blood pressure 145/52, oxygen saturation 99% on room air. My formal read of the electrocardiogram is sinus rhythm, 2-1 AV block, ventricular rate in the 30s, left anterior hemiblock, right bundle branch block. If we hold the atenolol, this should all resolve. RBC documented in this encounter [facility] 06-01-2024 Note Formatting of this n ote might be different from the original. Care Management Progress Note PM placed yesterday. Per therapy evaluation. Recommendation is SNF. Patient declines SNF. Agreeable to HC RN. [facility]. Length of Stay (Days): 3 GMLOS: 2.3 [facility] 06-01-2024 Note Formatting of this n ote might be different from the original. Care Management Progress Note PM placed yesterday. Per therapy evaluation. Recommendation is SNF. Patient declines SNF. Agreeable to HC RN. [facility] to [facility]. Length of Stay (Days): 3 GMLOS: 2.3 [facility] 06-01-2024 Plan of care note The patient is Moderately Stable - Low risk of patient condition declining or worsening The patient's goals for the shift include comfort The clinical goals for the shift include no complications with new pacer and surgical site Goals met [facility] 05-31-2024 Note Procedure Details PROCEDURE: Implantation of a dual chamber permanent pacemaker. ASSISTANTS: None CATHETERS AND/OR DRAINS: Not applicable SPECIMENS: None APPROACH: Left Axillary Vein DEVICE IMPLANTED: Medtronic [id number] LEAD INFORMATION: RA: Medtronic 5076-52, SN: [id number], P-wave 2.0V, Impedance 608ohms, Threshold 1.5V@0.4ms RV: Medtronic [id number], SN: [id number], No intrinsic R-wave, Impedance 1007ohms, Threshold 0.5V@0.4ms ESTIMATED BLOOD LOSS: 10 mL. COMPLICATIONS: None. DESCRIPTION OF PROCEDURE: The patient was brought to the electrophysiology laboratory in a fasting state and intravenous sedation was provided as needed with Versed and fentanyl. The left neck and chest were prepped and draped in the usual manner and the skin and subcutaneous tissues below the left clavicle were infiltrated with 1% lidocaine for local anesthesia. An incision was made below the left clavicle and electrocautery was used for hemostasis. Dissection was carried out to the level of the pectoralis fascia and extended caudally to create a pocket for the pulse generator. The axillary vein was accessed using the modified Seldinger technique with the aid of fluoroscopy. Two guide wires were advanced to the superior vena cava and peel-away introducer sheaths were used to insert the two pacing leads. The right atrial lead was placed in the RV septum for back up pacing. A LBBAP sheath was advanced into the RV over a J-wire and positioned on the septum. Positioning was guided by unipolar pacing and QRS morphology. The lead was then advanced into the septum, which was guided by unipolar pacing impedance, LVAT, and QRS morphology. The sheath was split using the [employer] splitting tool. The right atrial lead was relocated to the right atrial appendage. The leads were tested with a pacing systems analyzer and the results are noted above. The leads were then anchored in place with #0-silk around their suture sleeve and connected to the pulse generator. The pacemaker was noted to function appropriately. The pocket was then irrigated with antibiotic solution and the pacemaker system was placed in the pocket. The incision was closed with three layers (2-0 Polysorb, 3-0 Polysorb, 4-0 Polysorb). The incision was dressed with an Optifoam dressing and the patient left the EP lab in stable condition. --- CV CPACS HEMO 05-31-2024 Note Formatting of this n ote might be different from the original. Sedation Plan ASA class 2 - patient with mild systemic disease Mallampati class: II - soft palate, uvula, fauces visible. Sedation plan: moderate (conscious sedation) Risks, benefits, and alternatives discussed with patient. Use of blood products discussed with patient who consented to blood products. [employer] Phone: 05-31-2024 Note Formatting of this n ote might be different from the original. Sedation Plan ASA class 2 - patient with mild systemic disease Mallampati class: II - soft palate, uvula, fauces visible. Sedation plan: moderate (conscious sedation) Risks, benefits, and alternatives discussed with patient. Use of blood products discussed with patient who consented to blood products. [employer] Phone: 05-31-2024 Hospital Discharge instructions Kyung Hogan, MACHINE TESTER - CARDIOVASCULAR DISEASE SPECIALIST - 05/31/2024 2:54 PM EDT Post Pacemaker Discharge Instructions Incision Care: Keep original bandage on for 5 days. Remove it on __06/05/24 . Then, leave incision open to air. Do not remove steri-strips (tape) from incision line if present. Do not put any creams, powders, or ointments on incision. Allow steri-strips to fall off naturally. If still on 10 days post-op, may remove. If you have a pressure dressing (montoya colored, elastic tape covering your shoulder), remove this the morning after your procedure. Pull the tape off slowly to avoid skin tears. There will be another dressing underneath. Leave this one on for 5 days. You may take a sponge bath up until _10/25/24 , then you may shower. No swimming or tub bathing for 6 weeks. Observe area for redness, swelling, or drainage. If these symptoms occur, notify the device clinic immediately: . Some bruising can be expected. If the area around your incision becomes painful to touch after early soreness has gone away, or if you experience fever or chills, notify the device clinic immediately. For bleeding that does not stop or increased swelling, come to the Emergency Department. Sedation: If you have received sedation, you must have someone drive you home. You should not drive a car, operate machinery, drink alcohol, or perform any activity that requires alertness for the rest of the day. The effects of the sedative should resolve by tomorrow. Activity: Keep affected arm below shoulder level for 4 weeks. Do not raise affected arm over your head. No lifting more than 10 pounds with your affected arm for 4 weeks (a gallon of milk weighs 8 pounds). Limit pushing/pulling with affected arm. No driving for _7___ days. You may resume sexual activity in 3 weeks. General Instructions: Carry your ID card with you at all times. Refer to your information booklet for additional information. It is recommended that all family members be certified in CPR. Call the Device Clinic at [phone] if you have any questions regarding your incision, pacemaker, or follow-up appointments Marine Jorge LPN - 06/01/2024 11:40 AM EDT Images from the original note were not included. Continuity of Care Form Patient Name: Mikel Winston : 1945 Admit date: 05/29/2024 Discharge date: Code Status Order: Full Code Advance Directives: N Admitting Physician: Matthew Morillo MD PCP: KOMAL COHN DO Discharging Nurse: Discharging Hospital Unit/Room#: W4-423/W4-423 A Discharging Unit Phone Number: Emergency Contact: Extended Emergency Contact Information Primary Emergency Contact: Arnel Forte Mobile Relation: Child Secondary Emergency Contact: Russell Winston Mobile Relation: Child Past Surgical History: Past Surgical History: Procedure Laterality Date APPENDECTOMY CARDIAC ELECTROPHYSIOLOGY PROCEDURE N/A 05/31/2024 Performed by Pravin Poole MD at [facility] Cardiac Cath/EP Lab CHOLECYSTECTOMY CORONARY ARTERY BYPASS GRAFT TOTAL KNEE ARTHROPLASTY Right TUBAL LIGATION Immunization History: Immunization History Administered Date(s) Administered Influenza, High Dose Seasonal, Preservative Free 03/28/2017 Moderna SARS-CoV-2 Vaccination 04/15/2021 Pneumococcal Conjugate PCV 13 02/25/2017 Active Problems: Medical Problems Problem List * (Principal) Symptomatic sinus bradycardia Angina at rest (HCC) Generalized edema Diabetes (HCC) Coronary artery disease involving coronary bypass graft of [place] heart without angina pectoris Nonrheumatic aortic valve stenosis Essential hypertension Dyslipidemia BARRY (acute kidney injury) (HCC) UTI (urinary tract infection) Cellulitis of right lower extremity Isolation/Infection: No active isolations No active infections Nurse Assessment: Last Vital Signs: BP (!) 112/41 (BP Location: Right arm, Patient Position: Sitting) Pulse 62 Temp 36.4 C (97.5 F) (Temporal) Resp 17 Ht 1.626 m (5' 4) Wt 96.6 kg (213 lb) SpO2 95% BMI 36.56 kg/m Last documented pain score (0-10 scale): Last Weight: Wt Readings from Last 1 Encounters: 05/29/24 96.6 kg (213 lb) Mental Status: {FAM Patient Mental Status:13004} IV Access: {FAM IV Access:18873} Nursing Mobility/ADLs: Walking {CATY ADL:29678::Independent} Transfer {CATY ADL:25066::Independent} Bathing {CATY ADL:44980::Independent} Dressing {CATY ADL:63193::Independent} Toileting {CATY ADL:75661::Independent} Feeding {CATY ADL:39910::Independent} Mechanical Test Engineer {CATY ADL:20843::Independent} Med Delivery {yes/no:58795} Wound Care Documentation and Therapy: Wound/Incision 05/31/24 Chest Left (Active) Number of days: 0 Elimination: Continence: Bowel: {yes/no:49424} Bladder: {yes/no:49350} Urinary Catheter: {FAM Urinary Catheter:69855} Colostomy/Ileostomy/Ileal Conduit: {YES / NO:} Date of Last BM: No intake or output data in the 24 hours ending 06/01/24 1139 No intake/output data recorded. Safety Concerns: {FAM Safety Concerns:29353} Impairments/Disabilities: {FAM Impairments/Disabilities:54708} Nutrition Therapy: Current Nutrition Therapy: {FAM Diet List:77411} Routes of Feeding: {routes of feedin} Liquids: {liquid consistency:86078} Daily Fluid Restriction: {daily fluid restriction:61310} Last Modified Barium Swallow with Video (Video Swallowing Test): {done not done:31428} Treatments at the Time of Hospital Discharge: Respiratory Treatments: Oxygen Therapy: {Therapy; copd oxygen:26546} Ventilator: {FAM Ventilator:80055} Rehab Therapies: {GEN THERAPY DISCIPLINE SCAL:7374527} Weight Bearing Status/Restrictions: {POD WEIGHT BEARIN} Other Medical Equipment (for information only, NOT a DME order): {Assistive Devices DME:08874} Other Treatments: Patient's personal belongings (please select all that are sent with patient): {FAM Patient Belongings:48957} RN SIGNATURE: {E-signature:09118} CASE MANAGEMENT/SOCIAL WORK SECTION Inpatient Status Date: Discharging to Facility/ Agency Name: [facility] Home Address: [address] [place] [address] Dialysis Facility (if applicable) Name: Address: Dialysis Schedule: Phone: Fax: Kiln Door Builder/Metal Buildings Assembler signature: {E-signature:77735} PHYSICIAN SECTION Name: Mikel Winston Prognosis: {Rehab Prognosis:95529} Condition at Discharge: {Patient Condition:24061} Rehab Potential (if transferring to Rehab): {Rehab Prognosis:96863} Recommended Labs or Other Treatments After Discharge: The individual is being admitted to a nursing facility directly from an [facility] or a unit of a [facility] that is not operated by or licensed by [facility] under section 5119.14 or 5160-3-15.1 5 The individual requires the level of services provided by a nursing facility for the condition for which he or she was treated in the hospital and, Physician Certification: I certify the above information and transfer of Mikel Winston is necessary for the continuing treatment of the diagnosis listed and that she requires {FAM Level of Care:20119} for {greater less than:76172} 30 days. Update Admission H&P: {FAM Changes in H&P:65979} PHYSICIAN SIGNATURE: {E-signature:97699} documented in this encounter [facility] 05-31-2024 Note IMPRESSION: Predominant 2:1 AV block Likely type 2 Right bundle branch block LAFB Poor R Wave progression Electronically Signed On 05-31-2024 10:23:14 EDT by Huy Frederick [facility] 05-31-2024 Plan of care note Problem: Knowledge Deficit Goal: Patient/family/caregiver demonstrates understanding of disease process, treatment plan, medications, and discharge instructions 05/31/2024925 by Krunal Feng RN Outcome: Progressing 05/31/2024925 by Krunal Feng RN Outcome: Progressing Problem: Potential for Compromised Skin Integrity Goal: Skin Integrity is Maintained or Improved 05/31/2024925 by Krunal Feng RN Outcome: Progressing 05/31/2024925 by Krunal Feng RN Outcome: Progressing Goal: Nutritional status is improving Outcome: Progressing Problem: Urinary Incontinence Goal: Perineal skin integrity is maintained or improved Outcome: Progressing [facility] 05-31-2024 Note OCCUPATIONAL THERAPY [facility] Name/MRN: Mikel Winston ([id number]) Date: 05/31/2024 Orders received for OT evaluation and treat. Per medical chart, pt scheduled for PPM today. Will hold therapy and continue to follow. Dino Coelho, OT [facility] 05-31-2024 Note Formatting of this n ote might be different from the original. Care Management Progress Note Patient now on 4 West. Previous noted. NPO-Cardiology following for possible pacemaker. Per therapy evaluation. Recommendation is SNF. I will discuss this with patient today. Length of Stay (Days): 2 GMLOS: No GMLOS Documented [facility] 05-31-2024 Note Formatting of this n ote might be different from the original. Care Management Progress Note Patient now on 4 West. Previous noted. NPO-Cardiology following for possible pacemaker. Per therapy evaluation. Recommendation is SNF. I will discuss this with patient today. Length of Stay (Days): 2 GMLOS: No GMLOS Documented [facility] 05-31-2024 Consult note Associated Order (s): IP CONSULT TO CARDIOLOGY [facility] [place] [facility] Cardiology /Electrophysiology Consult Note Reason for Consult/Chief Complaint: symptomatic bradycardia, Mobitz type 2 AV block Referring provider: Dr. Marie Established social work specialist: Crystal History of Present Illness: Mikel Winston is a 78 y.o. female who follows Dr. 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 for pacemaker need. She reports for 2-3 days she was feeling extremely fatigued, SOB with exertion and acute on chronic bilateral lower extremity swellings. No orthopnea/PND, cough, presyncope/syncope. No chest pain. She also reports for 1 week she was having right shoulder pain - thinks probably injured herself while throwing trash, she is unable to move right arm above shoulder, OTC pain ointments helps. She is hemodynamically stable on room air with heart rates in 30s with EKG showing high degree AV block -Mobitz type II with drop in every other QRS, RBBB, LAFB at a ventricular rate of 32 (her baseline EKG is sinus with RBBB and LAFB). CXR shows vascular congestion with mild interstitial infiltrates. She has an BARRY on CKD with a creatinine of 2.5 (baseline is around 1.6), no electrolyte abnormalities, troponin x 2 of 0.1, normocytic anemia with hemoglobin of 8.8 (baseline 9.5-10) Assessment/Plan Mobitz type II AV block: She is symptomatic with fatigue and SOB with exertion. Hemodynamically stable. ECG with Mobitz 2 AV block, known RBBB/LAFB. Telemetry shows persistent Mobitz 2 AV block with drop in every other QRS. Discussed with her the need for pacemaker. Explained her how the pacemaker works, indications, and the early limitations with use of left shoulder/arm given she has new difficulties with moving right arm with pain in right shoulder x 1 week. She will need help post procedure with ADLs. She is agreeable to procedure and reports she will aks her daughter for help who lives close to her house and checks on her every day. Keep n.p.o for planned PPM today. Right shoulder pain: She reports this is new x 1 week, feels as if her shoulder joint is moving in and out of socket, she is unable to lift her right arm above shoulder level. OTC pain ointments helps, She did not seek any medical attention for this so far. Discussed with primary team - who plans to investigate this, may need an MRI and ortho consult. If MRI is needed - need to be done prior to PPM implantation today. Coronary artery disease status post bypass in 2009, PCI in 2018 No ischemic concern this admission, denies chest pain/discomfort/angina. 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 Outpatient follow-up and surveillance needed. BARRY on CKD: Multifactorial, follow up after PPM. Medications: aspirin, 81 mg, Oral, Daily cyanocobalamin, 100 mcg, Oral, Daily [Held by provider] enoxaparin, 30 mg, SubCUTAneous, Daily ferrous sulfate, 325 mg, Oral, Daily with breakfast insulin lispro, 0-6 Units, SubCUTAneous, TID WC And insulin lispro, 0-6 Units, SubCUTAneous, Nightly levothyroxine, 50 mcg, Oral, qAM AC [Held by provider] linaGLIPtin, 5 mg, Oral, Daily pantoprazole, 40 mg, Oral, qAM AC rosuvastatin, 20 mg, Oral, Daily Infusion Medications: Physical Examination: Vitals: 05/30/24 1540 05/30/24 2139 05/31/24 0206 05/31/24 0530 BP: (!) 117/49 (!) 126/49 (!) 113/46 (!) 117/40 BP Location: Right arm Left arm Left arm Left arm Patient Position: Lying Lying Lying Lying Pulse: (!) 35 (!) 35 (!) 32 (!) 30 Resp: 18 18 18 18 Temp: 36.4 C (97.6 F) 36.7 C (98 F) 36.7 C (98 F) 36.3 C (97.3 F) TempSrc: Temporal Temporal Temporal Temporal SpO2: 93% 94% 92% 92% Weight: Height: Intake/Output Summary (Last 24 hours) at 05/31/2024 0730 Last data filed at 05/30/2024 1815 Gross per 24 hour Intake 900 ml Output -- Net 900 ml Wt Readings from Last 3 Encounters: 05/29/24 213 lb (96.6 kg) 04/18/24 197 lb (89.4 kg) 03/14/24 197 lb (89.4 kg) Physical Exam Constitutional: no distress. well nourished. well hydrated Psychiatric: A &O x 3. Medical insight good NMT: Oral mucosa is pink and moist Neck: no JVD. Respiratory: Lungs are clear Cardiac exam: Rhythm: RRR ; Normal S1 and S2 Murmur: + systolic Other: No rub; no gallop Vasc: Peripheral pulses intact Abdomen: soft Extremities: +2 bilateral LE edema Skin: Warm to touch and well perfused Laboratory Tests: Recent Labs 05/29/24185505/31/24 0212 NA 137 136 K 4.0 4.1 CL 106 108* CO2 20* 21* BUN 42* 57* CREATININE 2.01* 2.53* EGFR 25.0* 19.0* Recent Labs 05/29/24185505/29/24 2203 05/30/24 0111 TROPONINI 0.124* 0.149* 0.145* Recent Labs 05/29/24 1856 05/31/24 0212 WBC 6.3 6.4 HGB 10.1* 8.8* HCT 31.2* 27.1* MCV 97.8 97.5 PLT 111* 85* Lab Results Component Value Date HGBA1C 6.1 (H) 01/28/2024 Lab Results Component Value Date TSH 3.912 05/30/2024 No results found for: CHOL No results found for: HDL No results found for: LDLCALC No results found for: TRIG No results found for: CHOLHDL No results found for: LDLCHOLESTER Recent Labs 05/29/24 185 BNP 3,820* No results for input(s): INR in the last 72 hours. No results found for: IRON, TIBC, FERRITIN Radiology: CXR: personally reviewed: Cardiac Tests Personally Reviewed: Last EKG 05/29/24 ECG 12-LEAD (Preliminary) This result has not been signed. Information might be incomplete. 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 Normal wall thickness. Normal left ventricular systolic function. EF by 2D Simpsons Biplane is 63%. Normal wall motion. Right Ventricle: Right ventricle is dilated. Reduced systolic function. Aortic Valve: Trileaflet. Thickened cusps. Calcified cusps. No regurgitation. Moderate stenosis of the aortic valve. AV mean gradient is 26 mmHg. AV peak gradient is 43 mmHg. AV area by continuity VTI is 1.2 cm2. Mitral Valve: Mild (1+) regurgitation. Tricuspid Valve: Moderate (2+) regurgitation. Pulmonic Valve: Mild to moderate (1-2+) regurgitation. Left Atrium: Left atrium is dilated. Right Atrium: Right atrium is dilated. IVC/SVC: IVC diameter is normal and decreases greater than 50% during inspiration; therefore the estimated right atrial pressure is normal (~3 mmHg). Signed by: Huy Frederick on 04/18/2024 2:01 PM Last Cath 12/27/17 (Final) Narrative Ordered by an unspecified provider. Last Stress Test No results found for this or any previous visit. Last EP study No results found for this or any previous visit. EF BP Date Value Ref Range Status 04/18/2024 63 55 - 100 % Final EF Physician Date Value Ref Range Status 12/08/2022 45 % Final Shayan Vásquez MD DATE of SERVICE: 05/31/2024 Cosigned by Wil Donaldson MD at 06/01/2024 4:23 PM EDT [facility] [employer] Phone: 05-31-2024 Consult note Associated Order (s): IP CONSULT TO CARDIOLOGY [facility] [place] [facility] Cardiology /Electrophysiology Consult Note Reason for Consult/Chief Complaint: symptomatic bradycardia, Mobitz type 2 AV block Referring provider: Dr. Marie Established social work specialist: Crystal History of Present Illness: Mikel Winston is a 78 y.o. female who follows Dr. 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 for pacemaker need. She reports for 2-3 days she was feeling extremely fatigued, SOB with exertion and acute on chronic bilateral lower extremity swellings. No orthopnea/PND, cough, presyncope/syncope. No chest pain. She also reports for 1 week she was having right shoulder pain - thinks probably injured herself while throwing trash, she is unable to move right arm above shoulder, OTC pain ointments helps. She is hemodynamically stable on room air with heart rates in 30s with EKG showing high degree AV block -Mobitz type II with drop in every other QRS, RBBB, LAFB at a ventricular rate of 32 (her baseline EKG is sinus with RBBB and LAFB). CXR shows vascular congestion with mild interstitial infiltrates. She has an BARRY on CKD with a creatinine of 2.5 (baseline is around 1.6), no electrolyte abnormalities, troponin x 2 of 0.1, normocytic anemia with hemoglobin of 8.8 (baseline 9.5-10) Assessment/Plan Mobitz type II AV block: She is symptomatic with fatigue and SOB with exertion. Hemodynamically stable. ECG with Mobitz 2 AV block, known RBBB/LAFB. Telemetry shows persistent Mobitz 2 AV block with drop in every other QRS. Discussed with her the need for pacemaker. Explained her how the pacemaker works, indications, and the early limitations with use of left shoulder/arm given she has new difficulties with moving right arm with pain in right shoulder x 1 week. She will need help post procedure with ADLs. She is agreeable to procedure and reports she will aks her daughter for help who lives close to her house and checks on her every day. Keep n.p.o for planned PPM today. Right shoulder pain: She reports this is new x 1 week, feels as if her shoulder joint is moving in and out of socket, she is unable to lift her right arm above shoulder level. OTC pain ointments helps, She did not seek any medical attention for this so far. Discussed with primary team - who plans to investigate this, may need an MRI and ortho consult. If MRI is needed - need to be done prior to PPM implantation today. Coronary artery disease status post bypass in 2010, PCI in 2018 No ischemic concern this admission, denies chest pain/discomfort/angina. 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 Outpatient follow-up and surveillance needed. BARRY on CKD: Multifactorial, follow up after PPM. Medications: aspirin, 81 mg, Oral, Daily cyanocobalamin, 100 mcg, Oral, Daily [Held by provider] enoxaparin, 30 mg, SubCUTAneous, Daily ferrous sulfate, 325 mg, Oral, Daily with breakfast insulin lispro, 0-6 Units, SubCUTAneous, TID WC And insulin lispro, 0-6 Units, SubCUTAneous, Nightly levothyroxine, 50 mcg, Oral, qAM AC [Held by provider] linaGLIPtin, 5 mg, Oral, Daily pantoprazole, 40 mg, Oral, qAM AC rosuvastatin, 20 mg, Oral, Daily Infusion Medications: Physical Examination: Vitals: 05/30/24 1540 05/30/24 2139 05/31/24 0206 05/31/24 0530 BP: (!) 117/49 (!) 126/49 (!) 113/46 (!) 117/40 BP Location: Right arm Left arm Left arm Left arm Patient Position: Lying Lying Lying Lying Pulse: (!) 35 (!) 35 (!) 32 (!) 30 Resp: 18 18 18 18 Temp: 36.4 C (97.6 F) 36.7 C (98 F) 36.7 C (98 F) 36.3 C (97.3 F) TempSrc: Temporal Temporal Temporal Temporal SpO2: 93% 94% 92% 92% Weight: Height: Intake/Output Summary (Last 24 hours) at 05/31/2024 0730 Last data filed at 05/30/2024 1815 Gross per 24 hour Intake 900 ml Output -- Net 900 ml Wt Readings from Last 3 Encounters: 05/29/24 213 lb (96.6 kg) 04/18/24 197 lb (89.4 kg) 03/14/24 197 lb (89.4 kg) Physical Exam Constitutional: no distress. well nourished. well hydrated Psychiatric: A &O x 3. Medical insight good NMT: Oral mucosa is pink and moist Neck: no JVD. Respiratory: Lungs are clear Cardiac exam: Rhythm: RRR ; Normal S1 and S2 Murmur: + systolic Other: No rub; no gallop Vasc: Peripheral pulses intact Abdomen: soft Extremities: +2 bilateral LE edema Skin: Warm to touch and well perfused Laboratory Tests: Recent Labs 05/29/24 1856 05/31/24 0212 NA 137 136 K 4.0 4.1 CL 106 108* CO2 20* 21* BUN 42* 57* CREATININE 2.01* 2.53* EGFR 25.0* 19.0* Recent Labs 05/29/24185505/29/24 2203 05/30/24 0111 TROPONINI 0.124* 0.149* 0.145* Recent Labs 05/29/24 18505/31/24 0212 WBC 6.3 6.4 HGB 10.1* 8.8* HCT 31.2* 27.1* MCV 97.8 97.5 PLT 111* 85* Lab Results Component Value Date HGBA1C 6.1 (H) 01/28/2024 Lab Results Component Value Date TSH 3.912 05/30/2024 No results found for: CHOL No results found for: HDL No results found for: LDLCALC No results found for: TRIG No results found for: CHOLHDL No results found for: LDLCHOLESTER Recent Labs 05/29/241855 BNP 3,820* No results for input(s): INR in the last 72 hours. No results found for: IRON, TIBC, FERRITIN Radiology: CXR: personally reviewed: Cardiac Tests Personally Reviewed: Last EKG 05/29/24 ECG 12-LEAD (Preliminary) This result has not been signed. Information might be incomplete. 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 Normal wall thickness. Normal left ventricular systolic function. EF by 2D Simpsons Biplane is 63%. Normal wall motion. Right Ventricle: Right ventricle is dilated. Reduced systolic function. Aortic Valve: Trileaflet. Thickened cusps. Calcified cusps. No regurgitation. Moderate stenosis of the aortic valve. AV mean gradient is 26 mmHg. AV peak gradient is 43 mmHg. AV area by continuity VTI is 1.2 cm2. Mitral Valve: Mild (1+) regurgitation. Tricuspid Valve: Moderate (2+) regurgitation. Pulmonic Valve: Mild to moderate (1-2+) regurgitation. Left Atrium: Left atrium is dilated. Right Atrium: Right atrium is dilated. IVC/SVC: IVC diameter is normal and decreases greater than 50% during inspiration; therefore the estimated right atrial pressure is normal (~3 mmHg). Signed by: Huy Frederick on 04/18/2024 2:01 PM Last Cath 12/27/17 (Final) Narrative Ordered by an unspecified provider. Last Stress Test No results found for this or any previous visit. Last EP study No results found for this or any previous visit. EF BP Date Value Ref Range Status 04/18/2024 63 55 - 100 % Final EF Physician Date Value Ref Range Status 12/08/2022 45 % Final Shayan Vásquez MD DATE of SERVICE: 05/31/2024 Cosigned by Wil Donaldson MD at 06/01/2024 4:23 PM EDT Associated Order(s): IP CONSULT TO CARDIOLOGY Images from the original note were not included. [facility] [address] [place] [id number] Dept: [phone] This is a 78-year-old woman seen for symptomatic bradycardia. Her history includes Coronary artery disease, coronary artery bypass surgery in 2010, percutaneous coronary intervention in 2018. Aortic stenosis, moderate. Her last echocardiogram was March 2024 showing a left ventricular ejection fraction 63%, mean gradient across the aortic valve 26, peak gradient 43, valve area 1.2 cm , dimensionless index 0.27 Chronic kidney disease with glomerular filtration rate in the 30s Diabetes mellitus Reported hepatic cirrhosis, details unknown For a week, she has had more shortness of breath and fatigue. 3 days ago, it became much worse. She came to the emergency department yesterday and was found to be bradycardic. I was called. I put in the note last night at 8:33 PM. Please see that note and below for details. She has not had chest pain or syncope. Her outpatient medications include vitamin EE, aspirin 81 mg daily, atenolol 50 mg daily, vitamin D, vitamin B12, iron sulfate 325 mg daily, omeprazole 40 mg daily, rosuvastatin 20 mg daily, Januvia 25 mg daily, furosemide 20 mg daily, levothyroxine 50 mcg daily, Myrbetriq 25 mg daily. Medical history is as noted. She is also had a cholecystectomy and right total knee arthroplasty. Her thyroid studies in January 2024 were normal including a TSH, T3, and T4 She has never used tobacco or alcohol Only allergy is codeine On physical exam she appears well. She is afebrile. Her heart rate is consistently about 35 bpm, respiratory rate 18, blood pressure 110/45, oxygen saturation 96% on room air. Her neck veins appear normal. She does have mild peripheral edema. Her extremities are warm. She has a grade 3 systolic murmur across the aortic valve consistent with her aortic stenosis. Troponin levels are 0.12, 0.15, 0.15. BUN and creatinine are 42 and 20 respectively, GFR 25, potassium 4.0, hemoglobin 10.1, platelets 111. I reviewed her chest x-ray which shows enlarged cardiac silhouette and increased lung markings and her sternal wires consistent with her previous coronary artery bypass surgery. Her EKG shows sinus rhythm with 2-1 AV block, left axis deviation, inferior infarct pattern, right bundle branch block and anterior infarct pattern. Medical decision making Her bradycardia is due to either Mobitz type I or Mobitz type II second-degree AV block. Hopefully, this will resolve with stopping her a atenolol. Also, a atenolol is renally excreted so it may take some time for its effect to be completely gone. Coronary artery disease, probably stable Aortic stenosis, moderate Chronic kidney disease, stage III. Recommend Hold a atenolol and monitor. Hopefully, her AV block will resolve. If not, she will need a pacemaker. If we see no improvement in her AV block by tomorrow afternoon we should probably transferred her to the [facility] in preparation of the pacemaker on Tuesday RBC documented in this encounter [facility] 05-31-2024 Plan of care note The patient is Moderately Stable - Low risk of patient condition declining or worsening The patient's goals for the shift include no chest pain The clinical goals for the shift include no symptomatic bradycardia Goals met over the shift [facility] 05-30-2024 Plan of care note The patient is Moderately Stable - Low risk of patient condition declining or worsening The patient's goals for the shift include rest The clinical goals for the shift include safety Problem: Knowledge Deficit Goal: Patient/family/caregiver demonstrates understanding of disease process, treatment plan, medications, and discharge instructions Outcome: Progressing Problem: Potential for Compromised Skin Integrity Goal: Skin Integrity is Maintained or Improved Outcome: Progressing Problem: Potential for Compromised Skin Integrity Goal: Nutritional status is improving Outcome: Progressing [facility] 05-30-2024 Nurse Note Report called to [facility] . Pt and family aware of transport to facility. [facility] 05-30-2024 Note Formatting of this n ote might be different from the original. Legal Research Analyst following case for Discharge Needs. Pt is currently not active with [facility] at Home, was discharged 05/09/2024. [facility] 05-30-2024 Note Formatting of this n ote might be different from the original. Legal Research Analyst following case for Discharge Needs. Pt is currently not active with [facility] at Home, was discharged 05/09/2024. [facility] 05-30-2024 Note Formatting of this n ote might be different from the original. Care Managment Initial Assessment Date: 05/30/2024 Patient Name: Mikel Winston : 1945 Patient Information Source of Information: Patient Cognition/Language: WFL - Within Functional Limits Permission given to speak with patient community relations representative/caregiver as indicated: Yes (DTR Arnel Jann or (Bharti), ) Confirmation of Payer with patient/family: Yes Payer Name: [facility]3] : No Confirmation of Primary Care Physician: Confirmed PCP Name: Komal Cohn Seen in last 2 years?: Yes Primary Caregiver: Self If assistance needed, confirmed caregiver ready, willing and able to care for patient at discharge: Confirmed with: Living Arrangements Current Residence: Apartment Number of Floors 1 Number of Entry Steps: (level entry) Bed/Bath Levels: Both first floor Facility: Facility Name: Plan to Return: Lives with: Alone Support Systems: Children Activities of Daily Living Ambulation: Independent Bathing/Dressing: Independent Elimination/Continence/Toileting: Independent Feeding: Independent Who Assists with Activities of Daily Living: Daughter Arnel manages her medications and provides transportatio at home Instrumental Activities of Daily Living Prescription Coverage: Yes Pharmacy Used: [facility] in [facility] Medication Management: Assistance Type: Dose packaging system Who assists with medication securing and setup?: ZELDA Mortensen Transportation/Shopping: Assistance Provider Transportation/Shopping Assistance Provider Name: DTR Arnel and/or other family members Transportation Mode: Car Needs Assistance with Transportation at Discharge: No Meal Preparation: Independent Laundry/Cleaning: Independent Finances/Bill Paying: Independent Communication: Independent Types of Care Services/Equipment Utilized Care Services: Dialysis Type: NA Durable Medical Equipment: Walker, Rollator, Glucometer Patient's Goal/Discharge Plan Patient expects to be discharged to: Anticipates returning home with resumption of Home care services Discharge Planning Actions: Continue to follow Patient's Choice Rights and [employer] and Collaborative Relationships Disclosed as Indicated for Post-Acute Care: NA Interdisciplinary Team Engagement: PT/OT, Home Health Care Social Work Referral for: Additional Information: Chart reviewed. Patient admitted to [facility] for treatment of bradycardia. Noted to have possibly been taking too much beta partha at home. Atenolol currently on hold. Regular diet. Cardiology following -plan in place to hold atenolol and monitor. If AV block does not resolve may need pacemaker. If so, will need transferred to [facility] for this procedure. Met with patient at bedside. Explained role. Lives alone in apartment. Level entry. Mostly independent with adls. Bathes and dresses self. Manages own cooking and cleaning. DTR Arnel manages her medications and provides transportation as needed. She reports she has good family support at home. She reports she is up ambulating in room with stand by assistance. She anticipates returning home with resumption of home care services when ready. Has no concerns returning home. Has transportation home when ready. DC plan: Home with resumption of home care. [facility] did request pt/ot evaluations to Dr. Garza. Lilibeth Laurent RN [facility] 05-30-2024 Note Formatting of this n ote might be different from the original. Care Managment Initial Assessment Date: 05/30/2024 Patient Name: Mikel Winston : 1945 Patient Information Source of Information: Patient Cognition/Language: WFL - Within Functional Limits Permission given to speak with patient community relations representative/caregiver as indicated: Yes (ZELDA Forte or (Bharti), ) Confirmation of Payer with patient/family: Yes Payer Name: [facility]3] [place]: No Confirmation of Primary Care Physician: Confirmed PCP Name: Komal Cohn Seen in last 2 years?: Yes Primary Caregiver: Self If assistance needed, confirmed caregiver ready, willing and able to care for patient at discharge: Confirmed with: Living Arrangements Current Residence: Apartment Number of Floors 1 Number of Entry Steps: (level entry) Bed/Bath Levels: Both first floor Facility: Facility Name: Plan to Return: Lives with: Alone Support Systems: Children Activities of Daily Living Ambulation: Independent Bathing/Dressing: Independent Elimination/Continence/Toileting: Independent Feeding: Independent Who Assists with Activities of Daily Living: Daughter Arnel manages her medications and provides transportatio at home Instrumental Activities of Daily Living Prescription Coverage: Yes Pharmacy Used: [facility] Medication Management: Assistance Type: Dose packaging system Who assists with medication securing and setup?: ZELDA Mortensen Transportation/Shopping: Assistance Provider Transportation/Shopping Assistance Provider Name: ZELDA Mortensen and/or other family members Transportation Mode: Car Needs Assistance with Transportation at Discharge: No Meal Preparation: Independent Laundry/Cleaning: Independent Finances/Bill Paying: Independent Communication: Independent Types of Care Services/Equipment Utilized Care Services: Dialysis Type: NA Durable Medical Equipment: Walker, Rollator, Glucometer Patient's Goal/Discharge Plan Patient expects to be discharged to: Anticipates returning home with resumption of Home care services Discharge Planning Actions: Continue to follow Patient's Choice Rights and [employer] and Collaborative Relationships Disclosed as Indicated for Post-Acute Care: NA Interdisciplinary Team Engagement: PT/OT, Home Health Care Social Work Referral for: Additional Information: Chart reviewed. Patient admitted to [facility] for treatment of bradycardia. Noted to have possibly been taking too much beta partha at home. Atenolol currently on hold. Regular diet. Cardiology following -plan in place to hold atenolol and monitor. If AV block does not resolve may need pacemaker. If so, will need transferred to [facility] for this procedure. Met with patient at bedside. Explained role. Lives alone in apartment. Level entry. Mostly independent with adls. Bathes and dresses self. Manages own cooking and cleaning. DTR Arnel manages her medications and provides transportation as needed. She reports she has good family support at home. She reports she is up ambulating in room with stand by assistance. She anticipates returning home with resumption of home care services when ready. Has no concerns returning home. Has transportation home when ready. DC plan: Home with resumption of home care. [facility] did request pt/ot evaluations to Dr. Garza. Lilibeth Laurent RN T [facility] 05-30-2024 Consult note Associated Order (s): IP CONSULT TO CARDIOLOGY Images from the original note were not included. [facility] [address] [place] [phone] Dept: [phone] This is a 78-year-old woman seen for symptomatic bradycardia. Her history includes Coronary artery disease, coronary artery bypass surgery in 2009, percutaneous coronary intervention in 2018. Aortic stenosis, moderate. Her last echocardiogram was March 2024 showing a left ventricular ejection fraction 63%, mean gradient across the aortic valve 26, peak gradient 43, valve area 1.2 cm , dimensionless index 0.27 Chronic kidney disease with glomerular filtration rate in the 30s Diabetes mellitus Reported hepatic cirrhosis, details unknown For a week, she has had more shortness of breath and fatigue. 3 days ago, it became much worse. She came to the emergency department yesterday and was found to be bradycardic. I was called. I put in the note last night at 8:33 PM. Please see that note and below for details. She has not had chest pain or syncope. Her outpatient medications include vitamin EE, aspirin 81 mg daily, atenolol 50 mg daily, vitamin D, vitamin B12, iron sulfate 325 mg daily, omeprazole 40 mg daily, rosuvastatin 20 mg daily, Januvia 25 mg daily, furosemide 20 mg daily, levothyroxine 50 mcg daily, Myrbetriq 25 mg daily. Medical history is as noted. She is also had a cholecystectomy and right total knee arthroplasty. Her thyroid studies in January 2024 were normal including a TSH, T3, and T4 She has never used tobacco or alcohol Only allergy is codeine On physical exam she appears well. She is afebrile. Her heart rate is consistently about 35 bpm, respiratory rate 18, blood pressure 110/45, oxygen saturation 96% on room air. Her neck veins appear normal. She does have mild peripheral edema. Her extremities are warm. She has a grade 3 systolic murmur across the aortic valve consistent with her aortic stenosis. Troponin levels are 0.12, 0.15, 0.15. BUN and creatinine are 42 and 20 respectively, GFR 25, potassium 4.0, hemoglobin 10.1, platelets 111. I reviewed her chest x-ray which shows enlarged cardiac silhouette and increased lung markings and her sternal wires consistent with her previous coronary artery bypass surgery. Her EKG shows sinus rhythm with 2-1 AV block, left axis deviation, inferior infarct pattern, right bundle branch block and anterior infarct pattern. Medical decision making Her bradycardia is due to either Mobitz type I or Mobitz type II second-degree AV block. Hopefully, this will resolve with stopping her a atenolol. Also, a atenolol is renally excreted so it may take some time for its effect to be completely gone. Coronary artery disease, probably stable Aortic stenosis, moderate Chronic kidney disease, stage III. Recommend Hold a atenolol and monitor. Hopefully, her AV block will resolve. If not, she will need a pacemaker. If we see no improvement in her AV block by tomorrow afternoon we should probably transferred her to the [facility] in preparation of the pacemaker on Tuesday RBC T [facility] 05-30-2024 Plan of care note The patient is Moderately Stable - Low risk of patient condition declining or worsening The patient's goals for the shift include to feel better/rest The clinical goals for the shift include stable heart rate T [facility] 05-29-2024 History and physical note History and Physical [facility] Mikel Winston : 1945 AGE 78 y.o. YEARS Note Date 05/29/2024 Primary Care Physician:KOMAL COHN DO Current Providers as of 05/29/2024 PCP: Komal Cohn DO Referring Provider: not found, starting on TueMay 29, 2024 12:00 AM Attending Provider: Kimi Polk DO, starting on TueMay 29, 2024 6:33 PM (Active) Registered Nurse: Yolanda Ag RN, starting on TueMay 29, 2024 6:28 PM (Active) Physician Recruitment Advertising Manager: Lakeisha Carter PA-C, starting on TueMay 29, 2024 6:28 PM (Active) Registered Nurse: Madyson Sy RN, starting on TueMay 29, 2024 6:53 PM (Active) Registered Nurse: Margarita Swartz RN, starting on TueMay 29, 2024 7:16 PM (Active) Chief Complaint: Fatigue (Pt sts that she has felt tired and worn out since yesterday evening. Pt checking her pulse ox at home and found that her pulse is 35. Pt HR 35 in triage. Pt complains of shortness of breath and feeling tired.) and Bradycardia (HR 35 in triage. ) HPI: She reports she noticed her heart rate was in the 30's on finger pulseox She denies chest pain, or lightheadedness or dizziness The only symptom she may have had was that she may have followed bit more tired when exerting herself. She states she found this randomly just by checking her oxygen saturation. Her oxygen saturation was normal but a Reading her pulse is low. She is not exactly sure when it originally started but she did notice this over the past day when her pulse ox She denied having any chest pain at any time But if she was short of breath it was only a slight amount with a slight cough Review of Systems: General: Skin: HEENT: Cardiovascular Fever n Rashes Difficulty chewing n Chest Pain n Chills n Sores Appetite Loss n Chest Pressure n Fatigue y Epistaxis Orthopnea n Sweats n Hearing loss Palpitations n GI: Tinnitus GERD n Vision quality RESP: Abdominal Pain n : SOB/WEISS little Nausea some Hematuria n Cough A little Vomiting n Dysuria n Productive/Sputum n Hematemesis n NEURO: Urgency n Hemoptysis n Diarrhea Headaches n Frequency n Wheezing n Constipation Seizures n Times at night urinating n Heamatochezia Neuropathy n catheter present MSK: Melena Focal weakness n Hesitancy Focal Numbness n Incontinence Acute joint pain n Dizzy/Vertigo Redness Difficulty speaking Heme/Lymph Swelling yes Difficulty walking Lymphadenopathy Myalgia Ataxia Chronic joint pain Past Medical History: Diagnosis Date CAD (coronary artery disease) Cirrhosis of liver (HCC) Diabetes mellitus (HCC) Hypertension Osteoporosis Thyroid disease Past Surgical History: Procedure Laterality Date APPENDECTOMY CHOLECYSTECTOMY CORONARY ARTERY BYPASS GRAFT TOTAL KNEE ARTHROPLASTY Right TUBAL LIGATION Allergies Allergen Reactions Codeine Hives Medications Prior to Admission: Current Outpatient Medications Medication Instructions alpha tocopherol (VITAMIN E) 100 Units, Oral, Daily aspirin 81 mg, Oral, Daily atenolol (TENORMIN) 50 mg, Oral, Daily cyanocobalamin (VITAMIN B-12) 100 mcg, Oral, Daily ferrous sulfate 325 mg, Oral, Daily with breakfast furosemide (Lasix) 20 MG tablet 3 days in a row levothyroxine (Synthroid, Levoxyl) 50 MCG tablet TAKE 1 TABLET BY MOUTH DAILY omeprazole (PRILOSEC) 40 mg, Oral, Daily before breakfast, Do not crush or chew. rosuvastatin (CRESTOR) 20 mg, Oral, Daily SITagliptin (JANUVIA) 25 mg, Oral, Daily Vitamin D 5,000 Units, Oral, Daily Social History Social History Tobacco Use Smoking status: Never Smokeless tobacco: Never Substance Use Topics Alcohol use: No Family History Family History Problem Relation Name Age of Onset Stroke Father's Brother Diabetes Father Mental illness Mother Coronary artery disease Brother Physical Exam Temp (24hrs), Av.3 C (97.4 F), Min:36.3 C (97.4 F), Max:36.3 C (97.4 F) Body mass index is 33.81 kg/m .BMI Classification: Obese (BMI 30.0-39.9) BP (!) 145/52 (BP Location: Right arm, Patient Position: Lying) Pulse (!) 37 Temp 36.3 C (97.4 F) (Temporal) Resp 20 Ht 5' 4 (1.626 m) Wt 197 lb (89.4 kg) SpO2 99% BMI 33.81 kg/m Pulse Ox: SpO2 Av % Min: 98 % Max: 100 % Supplemental O2: General appearance: She is alert answering questions well no distress heart has a bradycardic rhythm no murmurs or gallops HEENT: Normal cephalic, atraumatic without obvious deformity. Pupils equal, round, and reactive to light. Extra ocular muscles intact. Conjunctivae/corneas clear. Neck: Supple, with full range of motion. No jugular venous distention. Trachea midline. No lymphadenopathy. Respiratory: Normal respiratory effort. Clear to auscultation, bilaterally without Rales/Wheezes/Rhonchi. Cardiovascular: Regular rate and rhythm with normal S1/S2 without murmurs, rubs or gallops. Abdomen: Soft, non-tender, non-distended with normal bowel sounds. No rebound or guarding. Musculoskeletal: No clubbing, cyanosis or edema bilaterally. Full range of motion without deformity. Skin: Skin color, texture, turgor normal. No rashes or lesions. Neurologic: Neurovascularly intact without any focal sensory/motor deficits. Cranial nerves grossly intact. Labs Admission on 05/29/2024 Component Date Value SODIUM 05/29/2024 137 POTASSIUM 05/29/2024 4.0 CHLORIDE 05/29/2024 106 CARBON DIOXIDE 05/29/2024 20 (L) UREA NITROGEN 05/29/2024 42 (H) CREATININE 05/29/2024 2.01 (H) GLUCOSE 05/29/2024 122 (H) CALCIUM 05/29/2024 9.5 ANION GAP 05/29/2024 11 eGFR 05/29/2024 25.0 (L) Auto WBC 05/29/2024 6.3 RBC 05/29/2024 3.19 (L) Hemoglobin 05/29/2024 10.1 (L) Hematocrit 05/29/2024 31.2 (L) MCV 05/29/2024 97.8 MCH 05/29/2024 31.7 MCHC 05/29/2024 32.4 RDW 05/29/2024 14.2 Platelets 05/29/2024 111 (L) MPV 05/29/2024 12.0 nRBC 05/29/2024 0.0 Neutrophils Relative 05/29/2024 55.4 Lymphocytes Relative 05/29/2024 22.1 Monocytes Relative 05/29/2024 19.1 (H) Eosinophils Relative 05/29/2024 2.1 Basophils Relative 05/29/2024 0.8 Immature Grans % 05/29/2024 0.5 Neutrophils Absolute 05/29/2024 3.5 Lymphocytes Absolute 05/29/2024 1.4 Monocytes Absolute 05/29/2024 1.2 (H) Eosinophils Absolute 05/29/2024 0.1 Basophils Absolute 05/29/2024 0.1 Immature Grans Absolute 05/29/2024 0.0 IPF 05/29/2024 6 TROPONIN I 05/29/2024 0.124 (HH) Heart Rate 05/29/2024 34 QRSD Interval 05/29/2024 177 QT Interval 05/29/2024 684 QTC Interval 05/29/2024 517 P [place] 05/29/2024 -26 QRS [place] 05/29/2024 -59 T Wave [place] 05/29/2024 142 KS Interval 05/29/2024 266 NT PRO BNP 05/29/2024 3,820 (H) SARS-CoV-2 05/29/2024 Not Detected Respiratory Syncytial Vi* 05/29/2024 Not Detected Influenza A 05/29/2024 Not Detected Influenza B 05/29/2024 Not Detected MAGNESIUM 05/29/2024 1.9 EKG Encounter Date: 05/29/24 ECG 12 lead (Now) Result Value Heart Rate 34 QRSD Interval 177 QT Interval 684 QTC Interval 517 P [place] -26 QRS [place] -59 T Wave [place] 142 KS Interval 266 Impression Sinus bradycardia Prolonged KS interval Right bundle branch block LVH with secondary repolarization abnormality Inferior infarct, old Assessment/Plan and Medical Decision Making 78-year-old who presents with bradycardia discovered by home pulse oximeter On telemetry she has a pulse in the 30s frequently EKG confirms that she has a first-degree AV block along with right bundle branch block and sinus tachycardia She appears to be fairly asymptomatic from this overall the may be feeling slightly short of breath and more fatigued especially with exertion Exact duration is unknown She is on a beta-partha of atenolol at home which will be held Cardiology consult called from the ED and will see in consultation as well Current blood pressure acceptable She recently had echocardiogram performed approximately 1 month ago that showed a normal EF and some aortic stenosis I did discuss briefly with her if her pulse does not improve she may be considered for a pacemaker ckd Current creatinine of 2.01 close to her baseline Lab Results Component Value Date CREATININE 2.01 (H) 05/29/2024 CREATININE 2.09 (H) 03/26/2024 CREATININE 2.46 (H) 03/20/2024 CREATININE 1.66 (H) 02/02/2024 CREATININE 1.69 (H) 02/01/2024 CREATININE 1.62 (H) 01/31/2024 CREATININE 1.58 (H) 01/30/2024 CREATININE 1.68 (H) 01/29/2024 CREATININE 1.70 (H) 01/28/2024 CREATININE 1.31 (H) 11/19/2022 CREATININE 1.38 (H) 11/18/2022 CREATININE 1.56 (H) 11/18/2022 CREATININE 0.98 12/22/2021 CREATININE 1.01 12/21/2021 CREATININE 1.02 12/20/2021 CREATININE 1.13 12/19/2021 CREATININE 1.01 12/18/2021 CREATININE 1.06 12/17/2021 CREATININE 1.28 (H) 12/16/2021 CREATININE 1.20 12/15/2021 CREATININE 1.03 12/14/2021 CREATININE 0.97 12/14/2021 CREATININE 1.22 12/13/2021 History of diabetes She is on Januvia 25 mg at home which will be continued is Tradjenta here due to hospital formulary substitution I will also cover with sliding scale insulin Hypertension As above her atenolol will be on hold due to her bradycardia I will currently continue her Cozaar 50 mg a day as she takes at home Hypothyroidism I will continue her levothyroxine she takes at home Lab Results Component Value Date TSH 1.503 01/28/2024 Resume diet I discussed the need for admission with the emergency provider. -DVT prophylaxis: [x] Lovenox [] Heparin [] SCDs [x] Encourage ambulation [] Already on Anticoagulation [] Pharmocologic prophylaxis on hold to due risk bleed/procedure [] Low risk, ambulatory [] Both pharmacologic and mechanical contraindicated 05/29/2024 Mikel Winston [id number] Any scheduled follow up appointments Future Appointments Date Time Provider Department Center 03/27/2025 1:00 PM Jose Joel MD [facility] Contact Information Primary Emergency Contact: Arnel Forte Mobile Relation: Child Secondary Emergency Contact: Russell Winston Mobile Relation: Child Portions of this note may be electronically transcribed. Please forward a copy of this H&P to the primary care physician. [facility] [employer] Phone: 05-29-2024 Note [facility] 05-29-2024 History and physical note History and Physical [facility] Mikel Winston : 1945 AGE 78 y.o. YEARS Note Date 05/29/2024 Primary Care Physician:KOMAL COHN DO Current Providers as of 05/29/2024 PCP: Komal Cohn DO Referring Provider: not found, starting on TueMay 29, 2024 12:00 AM Attending Provider: Kimi Polk DO, starting on TueMay 29, 2024 6:33 PM (Active) Registered Nurse: Yolanda Ag RN, starting on TueMay 29, 2024 6:28 PM (Active) Physician Recruitment Advertising Manager: Lakeisha Carter PA-C, starting on TueMay 29, 2024 6:28 PM (Active) Registered Nurse: Madyson yS RN, starting on TueMay 29, 2024 6:53 PM (Active) Registered Nurse: Margarita Swartz RN, starting on TueMay 29, 2024 7:16 PM (Active) Chief Complaint: Fatigue (Pt sts that she has felt tired and worn out since yesterday evening. Pt checking her pulse ox at home and found that her pulse is 35. Pt HR 35 in triage. Pt complains of shortness of breath and feeling tired.) and Bradycardia (HR 35 in triage. ) HPI: She reports she noticed her heart rate was in the 30's on finger pulseox She denies chest pain, or lightheadedness or dizziness The only symptom she may have had was that she may have followed bit more tired when exerting herself. She states she found this randomly just by checking her oxygen saturation. Her oxygen saturation was normal but a Reading her pulse is low. She is not exactly sure when it originally started but she did notice this over the past day when her pulse ox She denied having any chest pain at any time But if she was short of breath it was only a slight amount with a slight cough Review of Systems: General: Skin: HEENT: Cardiovascular Fever n Rashes Difficulty chewing n Chest Pain n Chills n Sores Appetite Loss n Chest Pressure n Fatigue y Epistaxis Orthopnea n Sweats n Hearing loss Palpitations n GI: Tinnitus GERD n Vision quality RESP: Abdominal Pain n : SOB/WEISS little Nausea some Hematuria n Cough A little Vomiting n Dysuria n Productive/Sputum n Hematemesis n NEURO: Urgency n Hemoptysis n Diarrhea Headaches n Frequency n Wheezing n Constipation Seizures n Times at night urinating n Heamatochezia Neuropathy n catheter present MSK: Melena Focal weakness n Hesitancy Focal Numbness n Incontinence Acute joint pain n Dizzy/Vertigo Redness Difficulty speaking Heme/Lymph Swelling yes Difficulty walking Lymphadenopathy Myalgia Ataxia Chronic joint pain Past Medical History: Diagnosis Date CAD (coronary artery disease) Cirrhosis of liver (HCC) Diabetes mellitus (HCC) Hypertension Osteoporosis Thyroid disease Past Surgical History: Procedure Laterality Date APPENDECTOMY CHOLECYSTECTOMY CORONARY ARTERY BYPASS GRAFT TOTAL KNEE ARTHROPLASTY Right TUBAL LIGATION Allergies Allergen Reactions Codeine Hives Medications Prior to Admission: Current Outpatient Medications Medication Instructions alpha tocopherol (VITAMIN E) 100 Units, Oral, Daily aspirin 81 mg, Oral, Daily atenolol (TENORMIN) 50 mg, Oral, Daily cyanocobalamin (VITAMIN B-12) 100 mcg, Oral, Daily ferrous sulfate 325 mg, Oral, Daily with breakfast furosemide (Lasix) 20 MG tablet 3 days in a row levothyroxine (Synthroid, Levoxyl) 50 MCG tablet TAKE 1 TABLET BY MOUTH DAILY omeprazole (PRILOSEC) 40 mg, Oral, Daily before breakfast, Do not crush or chew. rosuvastatin (CRESTOR) 20 mg, Oral, Daily SITagliptin (JANUVIA) 25 mg, Oral, Daily Vitamin D 5,000 Units, Oral, Daily Social History Social History Tobacco Use Smoking status: Never Smokeless tobacco: Never Substance Use Topics Alcohol use: No Family History Family History Problem Relation Name Age of Onset Stroke Father's Brother Diabetes Father Mental illness Mother Coronary artery disease Brother Physical Exam Temp (24hrs), Av.3 C (97.4 F), Min:36.3 C (97.4 F), Max:36.3 C (97.4 F) Body mass index is 33.81 kg/m .BMI Classification: Obese (BMI 30.0-39.9) BP (!) 145/52 (BP Location: Right arm, Patient Position: Lying) Pulse (!) 37 Temp 36.3 C (97.4 F) (Temporal) Resp 20 Ht 5' 4 (1.626 m) Wt 197 lb (89.4 kg) SpO2 99% BMI 33.81 kg/m Pulse Ox: SpO2 Av % Min: 98 % Max: 100 % Supplemental O2: General appearance: She is alert answering questions well no distress heart has a bradycardic rhythm no murmurs or gallops HEENT: Normal cephalic, atraumatic without obvious deformity. Pupils equal, round, and reactive to light. Extra ocular muscles intact. Conjunctivae/corneas clear. Neck: Supple, with full range of motion. No jugular venous distention. Trachea midline. No lymphadenopathy. Respiratory: Normal respiratory effort. Clear to auscultation, bilaterally without Rales/Wheezes/Rhonchi. Cardiovascular: Regular rate and rhythm with normal S1/S2 without murmurs, rubs or gallops. Abdomen: Soft, non-tender, non-distended with normal bowel sounds. No rebound or guarding. Musculoskeletal: No clubbing, cyanosis or edema bilaterally. Full range of motion without deformity. Skin: Skin color, texture, turgor normal. No rashes or lesions. Neurologic: Neurovascularly intact without any focal sensory/motor deficits. Cranial nerves grossly intact. Labs Admission on 05/29/2024 Component Date Value SODIUM 05/29/2024 137 POTASSIUM 05/29/2024 4.0 CHLORIDE 05/29/2024 106 CARBON DIOXIDE 05/29/2024 20 (L) UREA NITROGEN 05/29/2024 42 (H) CREATININE 05/29/2024 2.01 (H) GLUCOSE 05/29/2024 122 (H) CALCIUM 05/29/2024 9.5 ANION GAP 05/29/2024 11 eGFR 05/29/2024 25.0 (L) Auto WBC 05/29/2024 6.3 RBC 05/29/2024 3.19 (L) Hemoglobin 05/29/2024 10.1 (L) Hematocrit 05/29/2024 31.2 (L) MCV 05/29/2024 97.8 MCH 05/29/2024 31.7 MCHC 05/29/2024 32.4 RDW 05/29/2024 14.2 Platelets 05/29/2024 111 (L) MPV 05/29/2024 12.0 nRBC 05/29/2024 0.0 Neutrophils Relative 05/29/2024 55.4 Lymphocytes Relative 05/29/2024 22.1 Monocytes Relative 05/29/2024 19.1 (H) Eosinophils Relative 05/29/2024 2.1 Basophils Relative 05/29/2024 0.8 Immature Grans % 05/29/2024 0.5 Neutrophils Absolute 05/29/2024 3.5 Lymphocytes Absolute 05/29/2024 1.4 Monocytes Absolute 05/29/2024 1.2 (H) Eosinophils Absolute 05/29/2024 0.1 Basophils Absolute 05/29/2024 0.1 Immature Grans Absolute 05/29/2024 0.0 IPF 05/29/2024 6 TROPONIN I 05/29/2024 0.124 (HH) Heart Rate 05/29/2024 34 QRSD Interval 05/29/2024 177 QT Interval 05/29/2024 684 QTC Interval 05/29/2024 517 P [place] 05/29/2024 -26 QRS [place] 05/29/2024 -59 T Wave [place] 05/29/2024 142 KS Interval 05/29/2024 266 NT PRO BNP 05/29/2024 3,820 (H) SARS-CoV-2 05/29/2024 Not Detected Respiratory Syncytial Vi* 05/29/2024 Not Detected Influenza A 05/29/2024 Not Detected Influenza B 05/29/2024 Not Detected MAGNESIUM 05/29/2024 1.9 EKG Encounter Date: 05/29/24 ECG 12 lead (Now) Result Value Heart Rate 34 QRSD Interval 177 QT Interval 684 QTC Interval 517 P [place] -26 QRS [place] -59 T Wave [place] 142 KS Interval 266 Impression Sinus bradycardia Prolonged KS interval Right bundle branch block LVH with secondary repolarization abnormality Inferior infarct, old Assessment/Plan and Medical Decision Making 78-year-old who presents with bradycardia discovered by home pulse oximeter On telemetry she has a pulse in the 30s frequently EKG confirms that she has a first-degree AV block along with right bundle branch block and sinus tachycardia She appears to be fairly asymptomatic from this overall the may be feeling slightly short of breath and more fatigued especially with exertion Exact duration is unknown She is on a beta-partha of atenolol at home which will be held Cardiology consult called from the ED and will see in consultation as well Current blood pressure acceptable She recently had echocardiogram performed approximately 1 month ago that showed a normal EF and some aortic stenosis I did discuss briefly with her if her pulse does not improve she may be considered for a pacemaker ckd Current creatinine of 2.01 close to her baseline Lab Results Component Value Date CREATININE 2.01 (H) 05/29/2024 CREATININE 2.09 (H) 03/26/2024 CREATININE 2.46 (H) 03/20/2024 CREATININE 1.66 (H) 02/02/2024 CREATININE 1.69 (H) 02/01/2024 CREATININE 1.62 (H) 01/31/2024 CREATININE 1.58 (H) 01/30/2024 CREATININE 1.68 (H) 01/29/2024 CREATININE 1.70 (H) 01/28/2024 CREATININE 1.31 (H) 11/19/2022 CREATININE 1.38 (H) 11/18/2022 CREATININE 1.56 (H) 11/18/2022 CREATININE 0.98 12/22/2021 CREATININE 1.01 12/21/2021 CREATININE 1.02 12/20/2021 CREATININE 1.13 12/19/2021 CREATININE 1.01 12/18/2021 CREATININE 1.06 12/17/2021 CREATININE 1.28 (H) 12/16/2021 CREATININE 1.20 12/15/2021 CREATININE 1.03 12/14/2021 CREATININE 0.97 12/14/2021 CREATININE 1.22 12/13/2021 History of diabetes She is on Januvia 25 mg at home which will be continued is Tradjenta here due to hospital formulary substitution I will also cover with sliding scale insulin Hypertension As above her atenolol will be on hold due to her bradycardia I will currently continue her Cozaar 50 mg a day as she takes at home Hypothyroidism I will continue her levothyroxine she takes at home Lab Results Component Value Date TSH 1.503 01/28/2024 Resume diet I discussed the need for admission with the emergency provider. -DVT prophylaxis: [x] Lovenox [] Heparin [] SCDs [x] Encourage ambulation [] Already on Anticoagulation [] Pharmocologic prophylaxis on hold to due risk bleed/procedure [] Low risk, ambulatory [] Both pharmacologic and mechanical contraindicated 05/29/2024 Mikel Winston [id number] Any scheduled follow up appointments Future Appointments Date Time Provider Department Center 03/27/2025 1:00 PM Jose Joel MD [facility] Contact Information Primary Emergency Contact: JannArnel Mobile Relation: Child Secondary Emergency Contact: Russell Winston Mobile Relation: Child Portions of this note may be electronically transcribed. Please forward a copy of this H&P to the primary care physician. documented in this encounter [facility] 05-29-2024 Emergency department Note Emergency Department Encounter [facility] ED Patient: Mikel Winston : 1945 Date of Evaluation: 05/29/2024 ED Supervising Physician: Kimi Polk DO I personally evaluated Mikel Winston and made/approved the management plan and take responsibility for the patient management. This will serve as my Supervisory note and shared attestation. I did perform a substantive portion of the visit including all aspects of the Medical Decision Making. I wore appropriate PPE for the entirety of this encounter. In brief, Mikel Winston is a 78 y.o. female with past medical history significant for CAD, aortic stenosis, right bundle branch block, CKD, hypertension, type 2 diabetes that presents to the emergency department for evaluation of fatigue and shortness of breath. She notes her symptoms started this afternoon. She reports she has had some shortness of breath. She denies any chest pain whatsoever. Denies any diaphoresis. Reports she just feels tired and rundown. Denies any melanotic stools. Focused exam: General: Appears nontoxic. Sitting upright, alert, answering questions appropriately, moving all extremities. Skin: no rash visible on exposed skin HEENT: Pupils equal and round, EOMI Cardiovascular: Bradycardic rate, regular rhythm. 2-3+ pitting edema to the bilateral lower extremities respiratory: CTAB, no wheeze, no conversational dyspnea gastrointestinal: Soft, nondistended, nontender musculoskeletal: No obvious deformity Neurological: Alert, moving all extremities spontaneously Psychiatric: Appropriate mood and affect for condition, normal behavior Brief ED course/MDM: Patient is a 78-year-old female presenting to the emergency department for evaluation of shortness of breath and fatigue Vitals on arrival revealed patient has a heart rate in the 30s. EKG interpreted by me: Sinus bradycardia, rate 34, prolonged KS interval, old inferior infarct Labs with elevated troponin, hemoglobin 10.1 similar to prior. BNP elevated at 3820. BUN/creatinine consistent with baseline. Consulted cardiology and they were comfortable with the patient being admitted at [facility] as long as she was hemodynamically stable. Patient has not had any hypotension or tachypnea here. She appears clinically well aside from her bradycardia. Will admit to [facility]. Diagnostics interpreted by me: EKG; see my interpretation elsewhere in the chart I personally discussed the patient's management with other clinicians: All diagnostic, treatment, and disposition decisions were made by myself in conjunction with the [facility]. For all further details of the patient's emergency department visit, please see their documentation. (Comment: Please note this report has been produced using speech recognition software and may contain errors related to that system including errors in grammar, punctuation, and spelling, as well as words and phrases that may be inappropriate. If there are any questions or concerns please feel free to contact the dictating provider for clarification.) Kimi Polk DO [facility] Kimi Polk DO 06/01/24 0717 EMERGENCY DEPARTMENT ENCOUNTER Pt Name: Mikel Winston Birthdate 1945 Date of evaluation: 05/29/2024 ED Provider: Lakeisha Carter PA-C CHIEF COMPLAINT Chief Complaint Patient presents with Fatigue Pt sts that she has felt tired and worn out since yesterday evening. Pt checking her pulse ox at home and found that her pulse is 35. Pt HR 35 in triage. Pt complains of shortness of breath and feeling tired. Bradycardia HR 35 in triage. HISTORY OF PRESENT ILLNESS (Location/Symptom, Timing/Onset, Context/Setting, Quality, Duration, Modifying Factors, Severity) Note limiting factors. I wore appropriate PPE for the entirety of this encounter. HPI Mikel Winston is a 78 y.o. female with past medical history CAD status post CABG, aortic stenosis, right bundle branch block, CKD, hypertension, type 2 diabetes, liver cirrhosis, thyroid disease who presents to the emergency department from home with family member at the bedside for fatigue/shortness of breath with associated heart rate 35. States that she has been fatigued all day. Does not require home O2. States that she measured her home pulse ox and noted heart rate to be 35, this is very low for her as she typically runs in the 60s. No history of heart block/bradycardia. No cardiac devices. No recent medication changes. She is not on any beta-blockers assess calcium channel blockers, though point review of chart shows that she is on atenolol 50 mg. No flu/cold-like symptoms. No known forms of blood loss. She denies chest pain or palpitations or hemoptysis or lightheadedness/dizziness. No other concern. Echo 04/2024: Left Ventricle: Left ventricle size is normal. Normal wall thickness. Normal left ventricular systolic function. EF by 2D Simpsons Biplane is 63%. Normal wall motion. Right Ventricle: Right ventricle is dilated. Reduced systolic function. Aortic Valve: Trileaflet. Thickened cusps. Calcified cusps. No regurgitation. Moderate stenosis of the aortic valve. AV mean gradient is 26 mmHg. AV peak gradient is 43 mmHg. AV area by continuity VTI is 1.2 cm2. Mitral Valve: Mild (1+) regurgitation. Tricuspid Valve: Moderate (2+) regurgitation. Pulmonic Valve: Mild to moderate (1-2+) regurgitation. Left Atrium: Left atrium is dilated. Right Atrium: Right atrium is dilated. IVC/SVC: IVC diameter is normal and decreases greater than 50% during inspiration; therefore the estimated right atrial pressure is normal (~3 mmHg). Nursing Notes were reviewed. Limitations to history: None Outside historians: None REVIEW OF SYSTEMS Review of Systems 8 systems reviewed, positives and pertinent negatives as per HPI. All other systems were reviewed and are negative. PAST MEDICAL HISTORY Past Medical History: Diagnosis Date CAD (coronary artery disease) Cirrhosis of liver (HCC) Diabetes mellitus (HCC) Hypertension Osteoporosis Thyroid disease SURGICAL HISTORY Past Surgical History: Procedure Laterality Date APPENDECTOMY CHOLECYSTECTOMY CORONARY ARTERY BYPASS GRAFT TOTAL KNEE ARTHROPLASTY Right TUBAL LIGATION CURRENT MEDICATIONS Previous Medications ALPHA TOCOPHEROL (VITAMIN E) 100 UNITS CAPSULE Take 100 Units by mouth daily. ASPIRIN 81 MG EC TABLET Take 81 mg by mouth daily. CHOLECALCIFEROL (VITAMIN D) 125 MCG (5000 UT) CAPSULE Take 5,000 Units by mouth daily. CYANOCOBALAMIN (VITAMIN B-12) 100 MCG TABLET Take 100 mcg by mouth daily. FERROUS SULFATE 325 (65 FE) MG TABLET Take 325 mg by mouth daily (with breakfast). FUROSEMIDE (LASIX) 20 MG TABLET 3 days in a row LEVOTHYROXINE (SYNTHROID, LEVOXYL) 50 MCG TABLET TAKE 1 TABLET BY MOUTH DAILY OMEPRAZOLE (PRILOSEC) [address] CAPSULE Take 40 mg by mouth every morning (before breakfast). Do not crush or chew. ROSUVASTATIN (CRESTOR) 20 MG TABLET Take 1 tablet (20 mg) by mouth daily. SITAGLIPTIN (JANUVIA) 25 MG TABLET Take 1 tablet (25 mg) by mouth daily. ALLERGIES Codeine FAMILY HISTORY Family History Problem Relation Name Age of Onset Stroke Father's Brother Diabetes Father Mental illness Mother Coronary artery disease Brother SOCIAL HISTORY Social History Socioeconomic History Marital status: Tobacco Use Smoking status: Never Smokeless tobacco: Never Substance and Sexual Activity Alcohol use: No Drug use: No Sexual activity: Not Currently Social Drivers of Health Financial Resource Strain: Medium Risk (01/28/2024) Overall Financial Resource Strain (CARDIA) Difficulty of Paying Living Expenses: Somewhat hard Food Insecurity: Food Insecurity Present (01/28/2024) Hunger Vital Sign Worried About Running Out of Food in the Last Year: Sometimes true Ran Out of Food in the Last Year: Sometimes true Transportation Needs: Unmet Transportation Needs (01/28/2024) PRAPARE - Transportation Lack of Transportation (Medical): Yes Lack of Transportation (Non-Medical): Yes Physical Activity: Insufficiently Active (01/28/2024) Exercise Vital Sign Days of Exercise per Week: 2 days Minutes of Exercise per Session: 10 min Stress: Stress Concern Present (01/28/2024) [place] [employer] - Occupational Stress Questionnaire Feeling of Stress : To some extent Social Connections: Moderately Integrated (01/28/2024) Social Connection and Isolation Panel [NHANES] Frequency of Communication with Friends and Family: More than three times a week Frequency of Social Gatherings with Friends and Family: More than three times a week Attends Nondenominational Services: More than 4 times per year Active Member of Clubs or Organizations: No Attends Club or Organization Meetings: Never Marital Status: Intimate Partner Violence: Not At Risk (01/28/2024) Humiliation, Afraid, Rape, and Kick questionnaire Fear of Current or Ex-Partner: No Emotionally Abused: No Physically Abused: No Sexually Abused: No Housing Stability: Low Risk (01/28/2024) Housing Stability Vital Sign Unable to Pay for Housing in the Last Year: No Number of Times Moved in the Last Year: 1 Homeless in the Last Year: No SCREENINGS Lila Coma Scale Best Eye Response: Spontaneous Best Verbal Response: Oriented Best Motor Response: Follows commands [place] Coma Scale Score: 15 PHYSICAL EXAM ED Triage Vitals [05/29/24 1826] Temp Heart Rate Resp BP 36.3 C (97.4 F) (!) 35 20 125/54 SpO2 Temp Source Heart Rate Source Patient Position 98 % Temporal Monitor -- BP Location FiO2 (%) -- -- Physical Exam Constitutional: General: She is not in acute distress. Appearance: Normal appearance. She is not ill-appearing, toxic-appearing or diaphoretic. Cardiovascular: Rate and Rhythm: Bradycardia present. Pulmonary: Effort: Pulmonary effort is normal. Breath sounds: Normal breath sounds. Musculoskeletal: General: Normal range of motion. Right lower leg: No edema. Left lower leg: No edema. Neurological: Mental Status: She is alert and oriented to person, place, and time. Psychiatric: Mood and Affect: Mood normal. Behavior: Behavior normal. DIAGNOSTIC RESULTS RADIOLOGY (Per Emergency Physician): Interpretation per the Radiologist below, if available at the time of this note: XR chest 1 view Final Result Stable cardiomegaly. Chronic interstitial changes within the lungs. Mild superimposed pulmonary vascular congestion is suspected, which appears overall improved when compared to the study dated 01/30/2024. Report Dictated on Electronically Signed By: Shemar Teresa MD Electronically Signed Date/Time: 05/29/2024 7:24 PM EDT LABS: Labs Reviewed BASIC METABOLIC PANEL - Abnormal Result Value SODIUM 137 POTASSIUM 4.0 CHLORIDE 106 CARBON DIOXIDE 20 (*) UREA NITROGEN 42 (*) CREATININE 2.01 (*) GLUCOSE 122 (*) CALCIUM 9.5 ANION GAP 11 eGFR 25.0 (*) CBC WITH AUTO DIFFERENTIAL - Abnormal Auto WBC 6.3 RBC 3.19 (*) Hemoglobin 10.1 (*) Hematocrit 31.2 (*) MCV 97.8 MCH 31.7 MCHC 32.4 RDW 14.2 Platelets 111 (*) MPV 12.0 nRBC 0.0 Neutrophils Relative 55.4 Lymphocytes Relative 22.1 Monocytes Relative 19.1 (*) Eosinophils Relative 2.1 Basophils Relative 0.8 Immature Grans % 0.5 Neutrophils Absolute 3.5 Lymphocytes Absolute 1.4 Monocytes Absolute 1.2 (*) Eosinophils Absolute 0.1 Basophils Absolute 0.1 Immature Grans Absolute 0.0 IPF 6 TROPONIN, WITH SERIAL REFLEX - Abnormal TROPONIN I 0.124 (*) Narrative: Patients with high levels of Biotin oral intake (ie >5 mg/day) may have falsely decreased Troponin levels. NT PRO BNP - Abnormal NT PRO BNP 3,820 (*) SARS-COV-2, FLU A/B, AND RSV COMBO - Normal SARS-CoV-2 Not Detected Respiratory Syncytial Virus Not Detected Influenza A Not Detected Influenza B Not Detected Narrative: Methodology: real-time, RT-PCR The SARS-CoV-2, Flu A/B, and RSV Combo assay is intended for in vitro diagnostic use under the FDA Emergency Use Authorization (EUA). This test has not been FDA cleared or approved. In compliance with this authorization, please visit www.fda.gov/media/594364/download or www.fda.gov/media/598866/download to access the applicable information sheets. MAGNESIUM - Normal MAGNESIUM 1.9 TROPONIN I TROPONIN I POCT GLUCOSE METER All other labs were within normal range or not returned as of this dictation. EMERGENCY DEPARTMENT COURSE and DIFFERENTIAL DIAGNOSIS/MDM: Vitals: Vitals: 05/29/24 1826 05/29/24 1839 05/29/24 1840 BP: 125/54 (!) 145/52 BP Location: Right arm Patient Position: Lying Pulse: (!) 35 (!) 37 Resp: 20 20 Temp: 36.3 C (97.4 F) TempSrc: Temporal SpO2: 98% 100% 99% Weight: 89.4 kg (197 lb) Height: 1.626 m (5' 4) Medications Insulin Lispro (Humalog) injection 0-6 Units (has no administration in time range) And Insulin Lispro (Humalog) injection 0-6 Units (has no administration in time range) glucose oral gel 15 g (has no administration in time range) dextrose 50 % solution 12.5 g (has no administration in time range) glucagon (human recombinant) injection 1 mg (has no administration in time range) dextrose 5 % infusion (has no administration in time range) aspirin chewable tablet 324 mg (324 mg Oral Given 05/29/24 1936) ED care was supervised by Dr. Polk who independently examined and evaluated the patient. Please see their attestation note for further details. In brief, Mikel Winston is a 78 y.o. female who presented to the emergency department for shortness of breath/fatigue and heart rate 35. Nursing notes and medical records reviewed. Initial vital signs notable for heart rate 35 Chronic conditions contributing to patients presentation include: CAD/hypertension on beta-partha Differential considerations included: Symptomatic bradycardia, heart block, ACS, COVID/flu/RSV Initial workup includes: CBC, BMP, BNP, magnesium, troponin, COVID/flu/RSV, ECG, chest x-ray Lab workup results: Initial troponin 0.124, BNP 4460-1478 x 4 months ago. Creatinine 2.01 which is baseline. Hemoglobin 10.1 which is baseline. COVID/flu/RSV negative. Magnesium within normal limits Labs Reviewed BASIC METABOLIC PANEL - Abnormal Result Value SODIUM 137 POTASSIUM 4.0 CHLORIDE 106 CARBON DIOXIDE 20 (*) UREA NITROGEN 42 (*) CREATININE 2.01 (*) GLUCOSE 122 (*) CALCIUM 9.5 ANION GAP 11 eGFR 25.0 (*) CBC WITH AUTO DIFFERENTIAL - Abnormal Auto WBC 6.3 RBC 3.19 (*) Hemoglobin 10.1 (*) Hematocrit 31.2 (*) MCV 97.8 MCH 31.7 MCHC 32.4 RDW 14.2 Platelets 111 (*) MPV 12.0 nRBC 0.0 Neutrophils Relative 55.4 Lymphocytes Relative 22.1 Monocytes Relative 19.1 (*) Eosinophils Relative 2.1 Basophils Relative 0.8 Immature Grans % 0.5 Neutrophils Absolute 3.5 Lymphocytes Absolute 1.4 Monocytes Absolute 1.2 (*) Eosinophils Absolute 0.1 Basophils Absolute 0.1 Immature Grans Absolute 0.0 IPF 6 TROPONIN, WITH SERIAL REFLEX - Abnormal TROPONIN I 0.124 (*) Narrative: Patients with high levels of Biotin oral intake (ie >5 mg/day) may have falsely decreased Troponin levels. NT PRO BNP - Abnormal NT PRO BNP 3,820 (*) SARS-COV-2, FLU A/B, AND RSV COMBO - Normal SARS-CoV-2 Not Detected Respiratory Syncytial Virus Not Detected Influenza A Not Detected Influenza B Not Detected Narrative: Methodology: real-time, RT-PCR The SARS-CoV-2, Flu A/B, and RSV Combo assay is intended for in vitro diagnostic use under the FDA Emergency Use Authorization (EUA). This test has not been FDA cleared or approved. In compliance with this authorization, please visit www.fda.gov/media/109078/download or www.fda.gov/media/416639/download to access the applicable information sheets. MAGNESIUM - Normal MAGNESIUM 1.9 TROPONIN I TROPONIN I POCT GLUCOSE METER Imaging results per radiology: XR chest 1 view Final Result Stable cardiomegaly. Chronic interstitial changes within the lungs. Mild superimposed pulmonary vascular congestion is suspected, which appears overall improved when compared to the study dated 01/30/2024. Report Dictated on Electronically Signed By: Shemar Teresa MD Electronically Signed Date/Time: 05/29/2024 7:24 PM EDT Initial medical management includes: Aspirin chewable 324 mg Consulted cardiology. I spoke to Dr. Joel. Patient able to be admitted to medicine at [facility] as long as she is hemodynamically stable and is not near syncopal. Will reassess in the a.m. to determine need for transfer to [facility]. Patient be admitted to medicine with cardiology consult. Patient and family expressed understanding and are amenable to plan. Diagnosis: Symptomatic sinus bradycardia, elevated troponin, elevated BNP Disposition: Admit to medicine Please disregard any typographical errors. This note was partially dictated using voice recognition software. PROCEDURES: Unless otherwise noted below, none Procedures FINAL IMPRESSION 1. Symptomatic sinus bradycardia 2. Elevated troponin 3. Elevated brain natriuretic peptide (BNP) level DISPOSITION Admit 05/29/2024 08:50:44 PM PATIENT REFERRED TO: No follow-up provider specified. DISCHARGE MEDICATIONS: New Prescriptions No medications on file (Comment: Please note this report has been produced using speech recognition software and may contain errors related to that system including errors in grammar, punctuation, and spelling, as well as words and phrases that may be inappropriate. If there are any questions or concerns please feel free to contact the dictating provider for clarification.) Lakeisha Carter PA-C (electronically signed) Emergency Medicine Provider Lakeisha Carter PA-C 05/29/242056 Lakeisha Carter PA-C 05/29/242056 Cosigned by Kimi Polk DO at 06/01/2024 7:05 AM EDT documented in this encounter [facility] 05-29-2024 Physician Emergency department Note Emergency Department Encounter [facility] ED Patient: Mikel Winston : 1945 Date of Evaluation: 05/29/2024 ED Supervising Physician: Kimi Polk DO I personally evaluated Mikel Winston and made/approved the management plan and take responsibility for the patient management. This will serve as my Supervisory note and shared attestation. I did perform a substantive portion of the visit including all aspects of the Medical Decision Making. I wore appropriate PPE for the entirety of this encounter. In brief, Mikel Winston is a 78 y.o. female with past medical history significant for CAD, aortic stenosis, right bundle branch block, CKD, hypertension, type 2 diabetes that presents to the emergency department for evaluation of fatigue and shortness of breath. She notes her symptoms started this afternoon. She reports she has had some shortness of breath. She denies any chest pain whatsoever. Denies any diaphoresis. Reports she just feels tired and rundown. Denies any melanotic stools. Focused exam: General: Appears nontoxic. Sitting upright, alert, answering questions appropriately, moving all extremities. Skin: no rash visible on exposed skin HEENT: Pupils equal and round, EOMI Cardiovascular: Bradycardic rate, regular rhythm. 2-3+ pitting edema to the bilateral lower extremities respiratory: CTAB, no wheeze, no conversational dyspnea gastrointestinal: Soft, nondistended, nontender musculoskeletal: No obvious deformity Neurological: Alert, moving all extremities spontaneously Psychiatric: Appropriate mood and affect for condition, normal behavior Brief ED course/MDM: Patient is a 78-year-old female presenting to the emergency department for evaluation of shortness of breath and fatigue Vitals on arrival revealed patient has a heart rate in the 30s. EKG interpreted by me: Sinus bradycardia, rate 34, prolonged KS interval, old inferior infarct Labs with elevated troponin, hemoglobin 10.1 similar to prior. BNP elevated at 3820. BUN/creatinine consistent with baseline. Consulted cardiology and they were comfortable with the patient being admitted at [facility] as long as she was hemodynamically stable. Patient has not had any hypotension or tachypnea here. She appears clinically well aside from her bradycardia. Will admit to [facility]. Diagnostics interpreted by me: EKG; see my interpretation elsewhere in the chart I personally discussed the patient's management with other clinicians: All diagnostic, treatment, and disposition decisions were made by myself in conjunction with the [facility]. For all further details of the patient's emergency department visit, please see their documentation. (Comment: Please note this report has been produced using speech recognition software and may contain errors related to that system including errors in grammar, punctuation, and spelling, as well as words and phrases that may be inappropriate. If there are any questions or concerns please feel free to contact the dictating provider for clarification.) Kimi Polk DO [employer] Kimi Polk DO 06/01/24 0717 [facility] Phone: 05-29-2024 Physician Emergency department Note EMERGENCY DEPARTMENT ENCOUNTER Pt Name: Mikel Winston Birthdate 1945 Date of evaluation: 05/29/2024 ED Provider: Lakeisha Carter PA-C CHIEF COMPLAINT Chief Complaint Patient presents with Fatigue Pt sts that she has felt tired and worn out since yesterday evening. Pt checking her pulse ox at home and found that her pulse is 35. Pt HR 35 in triage. Pt complains of shortness of breath and feeling tired. Bradycardia HR 35 in triage. HISTORY OF PRESENT ILLNESS (Location/Symptom, Timing/Onset, Context/Setting, Quality, Duration, Modifying Factors, Severity) Note limiting factors. I wore appropriate PPE for the entirety of this encounter. HPI Mikel Winston is a 78 y.o. female with past medical history CAD status post CABG, aortic stenosis, right bundle branch block, CKD, hypertension, type 2 diabetes, liver cirrhosis, thyroid disease who presents to the emergency department from home with family member at the bedside for fatigue/shortness of breath with associated heart rate 35. States that she has been fatigued all day. Does not require home O2. States that she measured her home pulse ox and noted heart rate to be 35, this is very low for her as she typically runs in the 60s. No history of heart block/bradycardia. No cardiac devices. No recent medication changes. She is not on any beta-blockers assess calcium channel blockers, though point review of chart shows that she is on atenolol 50 mg. No flu/cold-like symptoms. No known forms of blood loss. She denies chest pain or palpitations or hemoptysis or lightheadedness/dizziness. No other concern. Echo 04/2024: Left Ventricle: Left ventricle size is normal. Normal wall thickness. Normal left ventricular systolic function. EF by 2D Simpsons Biplane is 63%. Normal wall motion. Right Ventricle: Right ventricle is dilated. Reduced systolic function. Aortic Valve: Trileaflet. Thickened cusps. Calcified cusps. No regurgitation. Moderate stenosis of the aortic valve. AV mean gradient is 26 mmHg. AV peak gradient is 43 mmHg. AV area by continuity VTI is 1.2 cm2. Mitral Valve: Mild (1+) regurgitation. Tricuspid Valve: Moderate (2+) regurgitation. Pulmonic Valve: Mild to moderate (1-2+) regurgitation. Left Atrium: Left atrium is dilated. Right Atrium: Right atrium is dilated. IVC/SVC: IVC diameter is normal and decreases greater than 50% during inspiration; therefore the estimated right atrial pressure is normal (~3 mmHg). Nursing Notes were reviewed. Limitations to history: None Outside historians: None REVIEW OF SYSTEMS Review of Systems 8 systems reviewed, positives and pertinent negatives as per HPI. All other systems were reviewed and are negative. PAST MEDICAL HISTORY Past Medical History: Diagnosis Date CAD (coronary artery disease) Cirrhosis of liver (HCC) Diabetes mellitus (HCC) Hypertension Osteoporosis Thyroid disease SURGICAL HISTORY Past Surgical History: Procedure Laterality Date APPENDECTOMY CHOLECYSTECTOMY CORONARY ARTERY BYPASS GRAFT TOTAL KNEE ARTHROPLASTY Right TUBAL LIGATION CURRENT MEDICATIONS Previous Medications ALPHA TOCOPHEROL (VITAMIN E) 100 UNITS CAPSULE Take 100 Units by mouth daily. ASPIRIN 81 MG EC TABLET Take 81 mg by mouth daily. CHOLECALCIFEROL (VITAMIN D) 125 MCG (5000 UT) CAPSULE Take 5,000 Units by mouth daily. CYANOCOBALAMIN (VITAMIN B-12) 100 MCG TABLET Take 100 mcg by mouth daily. FERROUS SULFATE 325 (65 FE) MG TABLET Take 325 mg by mouth daily (with breakfast). FUROSEMIDE (LASIX) 20 MG TABLET 3 days in a row LEVOTHYROXINE (SYNTHROID, LEVOXYL) 50 MCG TABLET TAKE 1 TABLET BY MOUTH DAILY OMEPRAZOLE (PRILOSEC) [address] CAPSULE Take 40 mg by mouth every morning (before breakfast). Do not crush or chew. ROSUVASTATIN (CRESTOR) 20 MG TABLET Take 1 tablet (20 mg) by mouth daily. SITAGLIPTIN (JANUVIA) 25 MG TABLET Take 1 tablet (25 mg) by mouth daily. ALLERGIES Codeine FAMILY HISTORY Family History Problem Relation Name Age of Onset Stroke Father's Brother Diabetes Father Mental illness Mother Coronary artery disease Brother SOCIAL HISTORY Social History Socioeconomic History Marital status: Tobacco Use Smoking status: Never Smokeless tobacco: Never Substance and Sexual Activity Alcohol use: No Drug use: No Sexual activity: Not Currently Social Drivers of Health Financial Resource Strain: Medium Risk (01/28/2024) Overall Financial Resource Strain (CARDIA) Difficulty of Paying Living Expenses: Somewhat hard Food Insecurity: Food Insecurity Present (01/28/2024) Hunger Vital Sign Worried About Running Out of Food in the Last Year: Sometimes true Ran Out of Food in the Last Year: Sometimes true Transportation Needs: Unmet Transportation Needs (01/28/2024) PRAPARE - Transportation Lack of Transportation (Medical): Yes Lack of Transportation (Non-Medical): Yes Physical Activity: Insufficiently Active (01/28/2024) Exercise Vital Sign Days of Exercise per Week: 2 days Minutes of Exercise per Session: 10 min Stress: Stress Concern Present (01/28/2024) [place] [employer] - Occupational Stress Questionnaire Feeling of Stress : To some extent Social Connections: Moderately Integrated (01/28/2024) Social Connection and Isolation Panel [NHANES] Frequency of Communication with Friends and Family: More than three times a week Frequency of Social Gatherings with Friends and Family: More than three times a week Attends Nondenominational Services: More than 4 times per year Active Member of Clubs or Organizations: No Attends Club or Organization Meetings: Never Marital Status: Intimate Partner Violence: Not At Risk (01/28/2024) Humiliation, Afraid, Rape, and Kick questionnaire Fear of Current or Ex-Partner: No Emotionally Abused: No Physically Abused: No Sexually Abused: No Housing Stability: Low Risk (01/28/2024) Housing Stability Vital Sign Unable to Pay for Housing in the Last Year: No Number of Times Moved in the Last Year: 1 Homeless in the Last Year: No SCREENINGS Lila Coma Scale Best Eye Response: Spontaneous Best Verbal Response: Oriented Best Motor Response: Follows commands [place] Coma Scale Score: 15 PHYSICAL EXAM ED Triage Vitals [05/29/24 1826] Temp Heart Rate Resp BP 36.3 C (97.4 F) (!) 35 20 125/54 SpO2 Temp Source Heart Rate Source Patient Position 98 % Temporal Monitor -- BP Location FiO2 (%) -- -- Physical Exam Constitutional: General: She is not in acute distress. Appearance: Normal appearance. She is not ill-appearing, toxic-appearing or diaphoretic. Cardiovascular: Rate and Rhythm: Bradycardia present. Pulmonary: Effort: Pulmonary effort is normal. Breath sounds: Normal breath sounds. Musculoskeletal: General: Normal range of motion. Right lower leg: No edema. Left lower leg: No edema. Neurological: Mental Status: She is alert and oriented to person, place, and time. Psychiatric: Mood and Affect: Mood normal. Behavior: Behavior normal. DIAGNOSTIC RESULTS RADIOLOGY (Per Emergency Physician): Interpretation per the Radiologist below, if available at the time of this note: XR chest 1 view Final Result Stable cardiomegaly. Chronic interstitial changes within the lungs. Mild superimposed pulmonary vascular congestion is suspected, which appears overall improved when compared to the study dated 01/30/2024. Report Dictated on Electronically Signed By: Shemar Teresa MD Electronically Signed Date/Time: 05/29/2024 7:24 PM EDT LABS: Labs Reviewed BASIC METABOLIC PANEL - Abnormal Result Value SODIUM 137 POTASSIUM 4.0 CHLORIDE 106 CARBON DIOXIDE 20 (*) UREA NITROGEN 42 (*) CREATININE 2.01 (*) GLUCOSE 122 (*) CALCIUM 9.5 ANION GAP 11 eGFR 25.0 (*) CBC WITH AUTO DIFFERENTIAL - Abnormal Auto WBC 6.3 RBC 3.19 (*) Hemoglobin 10.1 (*) Hematocrit 31.2 (*) MCV 97.8 MCH 31.7 MCHC 32.4 RDW 14.2 Platelets 111 (*) MPV 12.0 nRBC 0.0 Neutrophils Relative 55.4 Lymphocytes Relative 22.1 Monocytes Relative 19.1 (*) Eosinophils Relative 2.1 Basophils Relative 0.8 Immature Grans % 0.5 Neutrophils Absolute 3.5 Lymphocytes Absolute 1.4 Monocytes Absolute 1.2 (*) Eosinophils Absolute 0.1 Basophils Absolute 0.1 Immature Grans Absolute 0.0 IPF 6 TROPONIN, WITH SERIAL REFLEX - Abnormal TROPONIN I 0.124 (*) Narrative: Patients with high levels of Biotin oral intake (ie >5 mg/day) may have falsely decreased Troponin levels. NT PRO BNP - Abnormal NT PRO BNP 3,820 (*) SARS-COV-2, FLU A/B, AND RSV COMBO - Normal SARS-CoV-2 Not Detected Respiratory Syncytial Virus Not Detected Influenza A Not Detected Influenza B Not Detected Narrative: Methodology: real-time, RT-PCR The SARS-CoV-2, Flu A/B, and RSV Combo assay is intended for in vitro diagnostic use under the FDA Emergency Use Authorization (EUA). This test has not been FDA cleared or approved. In compliance with this authorization, please visit www.fda.gov/media/477467/download or www.fda.gov/media/819813/download to access the applicable information sheets. MAGNESIUM - Normal MAGNESIUM 1.9 TROPONIN I TROPONIN I POCT GLUCOSE METER All other labs were within normal range or not returned as of this dictation. EMERGENCY DEPARTMENT COURSE and DIFFERENTIAL DIAGNOSIS/MDM: Vitals: Vitals: 05/29/24 1826 05/29/24 1839 05/29/24 1840 BP: 125/54 (!) 145/52 BP Location: Right arm Patient Position: Lying Pulse: (!) 35 (!) 37 Resp: 20 20 Temp: 36.3 C (97.4 F) TempSrc: Temporal SpO2: 98% 100% 99% Weight: 89.4 kg (197 lb) Height: 1.626 m (5' 4) Medications Insulin Lispro (Humalog) injection 0-6 Units (has no administration in time range) And Insulin Lispro (Humalog) injection 0-6 Units (has no administration in time range) glucose oral gel 15 g (has no administration in time range) dextrose 50 % solution 12.5 g (has no administration in time range) glucagon (human recombinant) injection 1 mg (has no administration in time range) dextrose 5 % infusion (has no administration in time range) aspirin chewable tablet 324 mg (324 mg Oral Given 05/29/241935) ED care was supervised by Dr. Polk who independently examined and evaluated the patient. Please see their attestation note for further details. In brief, Mikel Winston is a 78 y.o. female who presented to the emergency department for shortness of breath/fatigue and heart rate 35. Nursing notes and medical records reviewed. Initial vital signs notable for heart rate 35 Chronic conditions contributing to patients presentation include: CAD/hypertension on beta-partha Differential considerations included: Symptomatic bradycardia, heart block, ACS, COVID/flu/RSV Initial workup includes: CBC, BMP, BNP, magnesium, troponin, COVID/flu/RSV, ECG, chest x-ray Lab workup results: Initial troponin 0.124, BNP 3135-4347 x 4 months ago. Creatinine 2.01 which is baseline. Hemoglobin 10.1 which is baseline. COVID/flu/RSV negative. Magnesium within normal limits Labs Reviewed BASIC METABOLIC PANEL - Abnormal Result Value SODIUM 137 POTASSIUM 4.0 CHLORIDE 106 CARBON DIOXIDE 20 (*) UREA NITROGEN 42 (*) CREATININE 2.01 (*) GLUCOSE 122 (*) CALCIUM 9.5 ANION GAP 11 eGFR 25.0 (*) CBC WITH AUTO DIFFERENTIAL - Abnormal Auto WBC 6.3 RBC 3.19 (*) Hemoglobin 10.1 (*) Hematocrit 31.2 (*) MCV 97.8 MCH 31.7 MCHC 32.4 RDW 14.2 Platelets 111 (*) MPV 12.0 nRBC 0.0 Neutrophils Relative 55.4 Lymphocytes Relative 22.1 Monocytes Relative 19.1 (*) Eosinophils Relative 2.1 Basophils Relative 0.8 Immature Grans % 0.5 Neutrophils Absolute 3.5 Lymphocytes Absolute 1.4 Monocytes Absolute 1.2 (*) Eosinophils Absolute 0.1 Basophils Absolute 0.1 Immature Grans Absolute 0.0 IPF 6 TROPONIN, WITH SERIAL REFLEX - Abnormal TROPONIN I 0.124 (*) Narrative: Patients with high levels of Biotin oral intake (ie >5 mg/day) may have falsely decreased Troponin levels. NT PRO BNP - Abnormal NT PRO BNP 3,820 (*) SARS-COV-2, FLU A/B, AND RSV COMBO - Normal SARS-CoV-2 Not Detected Respiratory Syncytial Virus Not Detected Influenza A Not Detected Influenza B Not Detected Narrative: Methodology: real-time, RT-PCR The SARS-CoV-2, Flu A/B, and RSV Combo assay is intended for in vitro diagnostic use under the FDA Emergency Use Authorization (EUA). This test has not been FDA cleared or approved. In compliance with this authorization, please visit www.fda.gov/media/668365/download or www.fda.gov/media/579386/download to access the applicable information sheets. MAGNESIUM - Normal MAGNESIUM 1.9 TROPONIN I TROPONIN I POCT GLUCOSE METER Imaging results per radiology: XR chest 1 view Final Result Stable cardiomegaly. Chronic interstitial changes within the lungs. Mild superimposed pulmonary vascular congestion is suspected, which appears overall improved when compared to the study dated 01/30/2024. Report Dictated on Electronically Signed By: Shemar Teresa MD Electronically Signed Date/Time: 05/29/2024 7:24 PM EDT Initial medical management includes: Aspirin chewable 324 mg Consulted cardiology. I spoke to Dr. Joel. Patient able to be admitted to medicine at [facility] as long as she is hemodynamically stable and is not near syncopal. Will reassess in the a.m. to determine need for transfer to [facility]. Patient be admitted to medicine with cardiology consult. Patient and family expressed understanding and are amenable to plan. Diagnosis: Symptomatic sinus bradycardia, elevated troponin, elevated BNP Disposition: Admit to medicine Please disregard any typographical errors. This note was partially dictated using voice recognition software. PROCEDURES: Unless otherwise noted below, none Procedures FINAL IMPRESSION 1. Symptomatic sinus bradycardia 2. Elevated troponin 3. Elevated brain natriuretic peptide (BNP) level DISPOSITION Admit 05/29/2024 08:50:44 PM PATIENT REFERRED TO: No follow-up provider specified. DISCHARGE MEDICATIONS: New Prescriptions No medications on file (Comment: Please note this report has been produced using speech recognition software and may contain errors related to that system including errors in grammar, punctuation, and spelling, as well as words and phrases that may be inappropriate. If there are any questions or concerns please feel free to contact the dictating provider for clarification.) Lakeisha Carter PA-C (electronically signed) Emergency Medicine Provider Lakeisha Carter PA-C 05/29/242056 Lakeisha Carter PA-C 05/29/242056 Cosigned by Kimi Polk DO at 06/01/2024 7:05 AM EDT [facility] 04-27-2024 Note HNO ID: [id number] Author: KOMAL COHN DO Service: ? Author Type: Physician Type: Progress Notes Filed: 05/06/2024 17:10 Note Text: [facility] Komal Cohn DO [address] [place] [address] Date of Evaluation: 04/27/2024 Patient Name: Mikel Winston : 1945 Chief Complaint: Patient presents with: F/U Diabetes 3 Month Neck Pain: Pain in shoulders and neck Nursing Intake: There are no exam notes on file for this visit. Subjective Ms. Winston is a 78 year old female who presents with the following complaint(s): The history is provided by the patient and a relative. No manager language was used. Neck Pain Pertinent negatives include no chest pain, headaches, numbness or weakness. Diabetes She presents for her follow-up diabetic visit. She has type 2 diabetes mellitus. Pertinent negatives for hypoglycemia include no dizziness, headaches or nervousness/anxiousness. Pertinent negatives for diabetes include no chest pain, no fatigue and no weakness. Review of Systems Constitutional: Negative for fatigue and unexpected weight change. HENT: Negative for nosebleeds. Eyes: Negative for redness and visual disturbance. Respiratory: Negative for apnea, cough and shortness of breath. Cardiovascular: Negative for chest pain, palpitations and leg swelling. Genitourinary: Negative for hematuria. Musculoskeletal: Positive for neck pain. Neurological: Negative for dizziness, weakness, light-headedness, numbness and headaches. Hematological: Does not bruise/bleed easily. Psychiatric/Behavioral: The patient is not nervous/anxious. PAST MEDICAL HISTORY Diagnosis Date Anemia Diabetes (HCC) Diverticulosis Dysphagia FHx: colon cancer Hemorrhoids Hepatic flexure syndrome History of colon polyps Hypertension Kidney disease BARRON (nonalcoholic steatohepatitis) UTI (urinary tract infection) PAST SURGICAL HISTORY Procedure Laterality Date COLONOSCOPY 05/09/2012 TUBAL LIGATION HX FAMILY HISTORY Problem Relation Age of Onset Colon Cancer Mother other (Liver disease) Mother Social History Tobacco Use Smoking status: Former Smokeless tobacco: Never Vaping Use Vaping status: Never Used Substance Use Topics Alcohol use: No Drug use: No Current Outpatient Medications Medication Sig levothyroxine (SYNTHROID) 50 mcg tablet take 1 tablet by mouth every day furosemide (LASIX) 20 mg tablet take 1 tablet by mouth every day (Patient taking differently: Take 20 mg by mouth as needed.) nystatin (MYCOSTATIN) powder Apply 1 application to affected area three times a day. APPLY TO AFFECTED AREA atenolol (TENORMIN) 50 mg tablet Take 1 tablet by mouth once daily. ferrous sulfate 325 mg (65 mg iron) tablet Take 1 tablet by mouth every afternoon. fluticasone (FLONASE) 50 mcg/actuation nasal spray Use 2 Sprays in each nostril once daily. rosuvastatin (CRESTOR) 20 mg tablet Take 1 tablet by mouth once daily. VITAMIN B-12 1,000 mcg tab take 1 tablet by mouth every day Blood-Glucose Meter Use to test blood sugar Lancets lancets Use to test blood sugar BID cholecalciferol, vitamin D3, (VITAMIN D3 ORAL) Take by mouth. aspirin 81 mg chewable tablet Take 81 mg by mouth. Vitamin E, dl, acetate, (VITAMIN E) 400 unit capsule Take 800 Units by mouth. blood sugar diagnostic (BLOOD GLUCOSE TEST) test strip Use to test blood sugar BID silver sulfADIAZINE (SILVADENE) 1 % cream APPLY TO AFFECTED AREA TWICE A DAY DIRECTED SITagliptin phosphate (JANUVIA) 25 mg tablet Take 1 tablet by mouth once daily. ACCU-CHEK KENROY PLUS TEST STRP test strip 1 STRIP TWICE DAILY. USE TO TEST BLOOD SUGAR TWICE A DAY (Patient not taking: Reported on 04/27/2024) No current facility-administered medications for this visit. I have confirmed and edited as necessary the past medical, family and social histories, HPI, and ROS obtained by others. Objective BP 130/64 Pulse 61 Temp 98.1 Ht 5' 4 (1.63m) Wt 198 lb (89.8kg) SpO2 96% BMI 33.97 kg/(m2). Physical Exam Vitals and nursing note reviewed. Constitutional: General: She is not in acute distress. Appearance: Normal appearance. She is well-developed. She is not ill-appearing. HENT: Head: Normocephalic. Right Ear: Tympanic membrane, ear canal and external ear normal. There is no impacted cerumen. Left Ear: Tympanic membrane, ear canal and external ear normal. There is no impacted cerumen. Nose: Nose normal. Mouth/Throat: Mouth: Mucous membranes are moist. Pharynx: Oropharynx is clear. Uvula midline. No oropharyngeal exudate or posterior oropharyngeal erythema. Eyes: General: Lids are normal. Vision grossly intact. Gaze aligned appropriately. No scleral icterus. Right eye: No discharge. Left eye: No discharge. Extraocular Movements: Extraocular movements int (more content not included)... [facility] 04-27-2024 History of Present illness Narrative Images from the original note were not included. [facility] [address] [place] [address] Date of Evaluation: 04/27/2024 Patient Name: Mikel Winston : 1945 Chief Complaint: Patient presents with: F/U Diabetes 3 Month Neck Pain: Pain in shoulders and neck Nursing Intake: There are no exam notes on file for this visit. Subjective Ms. Winston is a 78 year old female who presents with the following complaint(s): The history is provided by the patient and a relative. No manager language was used. Neck Pain Pertinent negatives include no chest pain, headaches, numbness or weakness. Diabetes She presents for her follow-up diabetic visit. She has type 2 diabetes mellitus. Pertinent negatives for hypoglycemia include no dizziness, headaches or nervousness/anxiousness. Pertinent negatives for diabetes include no chest pain, no fatigue and no weakness. Review of Systems Constitutional: Negative for fatigue and unexpected weight change. HENT: Negative for nosebleeds. Eyes: Negative for redness and visual disturbance. Respiratory: Negative for apnea, cough and shortness of breath. Cardiovascular: Negative for chest pain, palpitations and leg swelling. Genitourinary: Negative for hematuria. Musculoskeletal: Positive for neck pain. Neurological: Negative for dizziness, weakness, light-headedness, numbness and headaches. Hematological: Does not bruise/bleed easily. Psychiatric/Behavioral: The patient is not nervous/anxious. PAST MEDICAL HISTORY Diagnosis Date Anemia Diabetes (HCC) Diverticulosis Dysphagia FHx: colon cancer Hemorrhoids Hepatic flexure syndrome History of colon polyps Hypertension Kidney disease BARRON (nonalcoholic steatohepatitis) UTI (urinary tract infection) PAST SURGICAL HISTORY Procedure Laterality Date COLONOSCOPY 05/09/2012 TUBAL LIGATION HX FAMILY HISTORY Problem Relation Age of Onset Colon Cancer Mother other (Liver disease) Mother Social History Tobacco Use Smoking status: Former Smokeless tobacco: Never Vaping Use Vaping status: Never Used Substance Use Topics Alcohol use: No Drug use: No Current Outpatient Medications Medication Sig levothyroxine (SYNTHROID) 50 mcg tablet take 1 tablet by mouth every day furosemide (LASIX) 20 mg tablet take 1 tablet by mouth every day (Patient taking differently: Take 20 mg by mouth as needed.) nystatin (MYCOSTATIN) powder Apply 1 application to affected area three times a day. APPLY TO AFFECTED AREA atenolol (TENORMIN) 50 mg tablet Take 1 tablet by mouth once daily. ferrous sulfate 325 mg (65 mg iron) tablet Take 1 tablet by mouth every afternoon. fluticasone (FLONASE) 50 mcg/actuation nasal spray Use 2 Sprays in each nostril once daily. rosuvastatin (CRESTOR) 20 mg tablet Take 1 tablet by mouth once daily. VITAMIN B-12 1,000 mcg tab take 1 tablet by mouth every day Blood-Glucose Meter Use to test blood sugar Lancets lancets Use to test blood sugar BID cholecalciferol, vitamin D3, (VITAMIN D3 ORAL) Take by mouth. aspirin 81 mg chewable tablet Take 81 mg by mouth. Vitamin E, dl, acetate, (VITAMIN E) 400 unit capsule Take 800 Units by mouth. blood sugar diagnostic (BLOOD GLUCOSE TEST) test strip Use to test blood sugar BID silver sulfADIAZINE (SILVADENE) 1 % cream APPLY TO AFFECTED AREA TWICE A DAY DIRECTED SITagliptin phosphate (JANUVIA) 25 mg tablet Take 1 tablet by mouth once daily. ACCU-CHEK KENROY PLUS TEST STRP test strip 1 STRIP TWICE DAILY. USE TO TEST BLOOD SUGAR TWICE A DAY (Patient not taking: Reported on 04/27/2024) No current facility-administered medications for this visit. I have confirmed and edited as necessary the past medical, family and social histories, HPI, and ROS obtained by others. Objective BP 130/64 Pulse 61 Temp 98.1 Ht 5' 4 (1.63m) Wt 198 lb (89.8kg) SpO2 96% BMI 33.97 kg/(m^2). Physical Exam Vitals and nursing note reviewed. Constitutional: General: She is not in acute distress. Appearance: Normal appearance. She is well-developed. She is not ill-appearing. HENT: Head: Normocephalic. Right Ear: Tympanic membrane, ear canal and external ear normal. There is no impacted cerumen. Left Ear: Tympanic membrane, ear canal and external ear normal. There is no impacted cerumen. Nose: Nose normal. Mouth/Throat: Mouth: Mucous membranes are moist. Pharynx: Oropharynx is clear. Uvula midline. No oropharyngeal exudate or posterior oropharyngeal erythema. Eyes: General: Lids are normal. Vision grossly intact. Gaze aligned appropriately. No scleral icterus. Right eye: No discharge. Left eye: No discharge. Extraocular Movements: Extraocular movements intact. Conjunctiva/sclera: Conjunctivae normal. Pupils: Pupils are equal, round, and reactive to light. Neck: Thyroid: No thyroid mass, thyromegaly or thyroid tenderness. Vascular: No carotid bruit. Trachea: Trachea and phonation normal. Cardiovascular: Rate and Rhythm: Normal rate and regular rhythm. Pulses: Normal pulses. Heart sounds: Murmur heard. Pulmonary: Effort: Pulmonary effort is normal. Breath sounds: Normal breath sounds. Abdominal: General: Abdomen is flat. Bowel sounds are normal. Palpations: Abdomen is soft. Musculoskeletal: General: Normal range of motion. Right shoulder: Normal. Left shoulder: Normal. Cervical back: Normal, full passive range of motion without pain and neck supple. No tenderness. No spinous process tenderness. Thoracic back: Normal. Lumbar back: Normal. Right knee: Normal. Left knee: Normal. Right lower leg: Edema present. Left lower leg: Edema present. Lymphadenopathy: Cervical: No cervical adenopathy. Skin: General: Skin is warm and dry. Neurological: General: No focal deficit present. Mental Status: She is alert and oriented to person, place, and time. Mental status is at baseline. Sensory: Sensation is intact. Motor: Motor function is intact. Psychiatric: Attention and Perception: Attention and perception normal. Mood and Affect: Mood normal. Speech: Speech normal. Behavior: Behavior normal. Thought Content: Thought content normal. Judgment: Judgment normal. Data Reviewed: Most recent labs ASSESSMENT/PLAN: 1. Primary hypertension - ICD9: 401.9, ICD10: I10 (primary diagnosis) - Controlled - Continue current medications - Recommend home blood pressure monitoring, to bring results to next visit - Encouraged sodium restriction, DASH or Mediterranean diet - Recommend regular aerobic exercise 2. Type 2 diabetes mellitus with stage 4 ckd, without long-term current use of insulin ([facility]) - , ICD10: E11.22,N18.4 - Controlled - Continue current medications - BLOOD SUGAR DIAGNOSTIC STRIPS 3. Cellulitis of left lower leg - ICD9: 682.6, ICD10: L03.116 - Recurrent issue, use cream as needed - SILVER SULFADIAZINE 1 % TOPICAL CREAM 4. Class 1 obesity with body mass index (BMI) of 33.0 to 33.9 in adult, unspecified obesity type, unspecified whether serious comorbidity present - ICD9: 278.00, V85.33, ICD10: E66.9, Z68.33 5. CKD (chronic kidney disease) stage 4, GFR 15-29 ml/min ([facility]) - ICD9: 585.4, ICD10: N18.4 - Managed by Nephrology. 6. Bilateral leg edema - ICD9: 782.3, ICD10: R60.0 - Continue lasix 7. Systolic murmur - ICD9: 785.2, ICD10: R01.1 8. Other depression - ICD9: 311, ICD10: F32.89 - advised to restart Citalopram- patient has at home. Return in about 3 months (around 07/27/2024) for medication follow up. Attestation: Scribe Attestation: The patient is seen and examined by Dr. Cohn and the following reflects his/her service. Scribed by Delores Cordoba April 27, 2024 4:24Provider Attestation: I, Komal Cohn DO personally performed the services described in this documentation. All medical record entries made by the scribe were at my direction and in my presence. I have reviewed the chart and discharge instructions (if applicable) and agree that the record reflects my personal performance and is accurate and complete. Electronically Signed: Komal Cohn DO, April 27, 2024 4:33 PM documented in this encounter [facility] 04-18-2024 Miscellaneous Notes Good news. Her aortic valve stenosis is not severe, moderate. Her LV systolic functions is still normal. As long as she is feeling okay we can simply follow this. documented in this encounter [facility] 04-18-2024 Progress note Formatting of t his note might be different from the original. Good news. Her aortic valve stenosis is not severe, moderate. Her LV systolic functions is still normal. As long as she is feeling okay we can simply follow this. [facility] 04-13-2024 Telephone encounter Note Patient called requesting the following refill Refill(s) Requested: Requested Prescriptions Pending Prescriptions Disp Refills levothyroxine (SYNTHROID) 50 mcg tablet [Pharmacy Med Name: LEVOTHYROXINE 50 MCG TABLET] 90 tablet 1 Sig: take 1 tablet by mouth every day ALLERGIES Allergen Reactions Codeine Hives, Rash Codeine Sulfate Unknown (home) [phone] (cell) Last Office Visit Date: 03/16/2024 Last Distance Health Visit: Visit date not found Future Appointment: 04/13/2024 The patients preferred pharmacy has been captured for this encounter? yes Request is for script(s) to be escript to pharmacy. Grace Linda LPN [facility] 04-13-2024 Miscellaneous Notes Patient called requesting the following refill Refill(s) Requested: Requested Prescriptions Pending Prescriptions Disp Refills levothyroxine (SYNTHROID) 50 mcg tablet [Pharmacy Med Name: LEVOTHYROXINE 50 MCG TABLET] 90 tablet 1 Sig: take 1 tablet by mouth every day ALLERGIES Allergen Reactions Codeine Hives, Rash Codeine Sulfate Unknown (home) [phone] (cell) Last Office Visit Date: 03/16/2024 Last Distance Health Visit: Visit date not found Future Appointment: 04/13/2024 The patients preferred pharmacy has been captured for this encounter? yes Request is for script(s) to be escript to pharmacy. Grace Linda LPN documented in this encounter [facility] 04-10-2024 Telephone encounter Note Spoke with the patient who advised she is not taking the Citalopram. States she is taking the Lasix PRN and also needs a refill on Januvia [facility] 04-10-2024 Miscellaneous Notes Spoke with the patient who advised she is not taking the Citalopram. States she is taking the Lasix PRN and also needs a refill on Januvia documented in this encounter [facility] 03-22-2024 Telephone encounter Note Order has been mailed Nanette Nelson [facility] 03-22-2024 Miscellaneous Notes Order has been mailed Nanette Nelson Please mail plaquard rx to patient. 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 When signed, put in mail to the Pt. Sylvia Monroy documented in this encounter [facility] 03-22-2024 Telephone encounter Note Please mail plaquard rx to patient. Thanks [facility] 03-21-2024 Telephone encounter Note PC to patient. Reviewed PARESH recommendations. She verbalized understanding. [facility] 03-21-2024 Miscellaneous Notes PC to patient. Reviewed PARESH recommendations. She verbalized understanding. PC to patient. Reviewed results. Her leg swelling is down. Her weight 3 days ago was 190 lbs, today 195 lbs. No more SOB than usual. Saw PCP 03/16 for cellulitis on her leg, currently on bactrim and has ointment for legs. Will repeat labs on Tuesday. She verbalized understanding. Please call her and see how she is doing as far as her edema. Her follow-up blood testing showed worsening in her renal function. Therefore, I would like her to not take any further diuretics and get a follow-up basic metabolic panel on Tuesday. Will see where her renal function levels out and how her edema is. We also have an echocardiogram pending. I put the order in for the basic metabolic panel. Thank you documented in this encounter [facility] 03-21-2024 Telephone encounter Note PC to patient. Reviewed results. Her leg swelling is down. Her weight 3 days ago was 190 lbs, today 195 lbs. No more SOB than usual. Saw PCP 03/16 for cellulitis on her leg, currently on bactrim and has ointment for legs. Will repeat labs on Tuesday. She verbalized understanding. [facility] 03-21-2024 Telephone encounter Note Please call her and see how she is doing as far as her edema. Her follow-up blood testing showed worsening in her renal function. Therefore, I would like her to not take any further diuretics and get a follow-up basic metabolic panel on Tuesday. Will see where her renal function levels out and how her edema is. We also have an echocardiogram pending. I put the order in for the basic metabolic panel. Thank you [facility] 03-19-2024 Telephone encounter Note Please mail the order for the placard to the patient, thanks [facility] 03-16-2024 Instructions Marilin Rosales LPN - 03/16/2024 3:47 PM EDT Can take benadryl OTC for itching documented in this encounter [facility] 03-16-2024 Note HNO ID: [id number] Author: KOMAL COHN DO Service: ? Author Type: Physician Type: Progress Notes Filed: 03/20/2024 21:06 Note Text: [facility] [place] Komal Cohn DO [address] [place] [address] Date of Evaluation: 03/16/2024 Patient Name: Mikel Winston : 1945 Chief Complaint: Patient presents with: Edema: Started swelling and seeping Right leg May - Left leg started on Tues Nursing Intake: There are no exam notes on file for this visit. Subjective Ms. Winston is a 78 year old female who presents with the following complaint(s): The history is provided by the patient. No manager language was used. Edema This is a new problem. Episode onset: x 3 days. Pertinent negatives include no chest pain, coughing, fatigue, headaches, numbness or weakness. Associated symptoms comments: Swelling, redness, itching, seeping clear fluid left lower leg. Review of Systems Constitutional: Negative for fatigue and unexpected weight change. HENT: Negative for nosebleeds. Eyes: Negative for redness and visual disturbance. Respiratory: Negative for apnea, cough and shortness of breath. Cardiovascular: Negative for chest pain and palpitations. Genitourinary: Negative for hematuria. Skin: Left lower leg swelling, clear drainage, red, and itching Neurological: Negative for dizziness, weakness, light-headedness, numbness and headaches. Hematological: Does not bruise/bleed easily. Psychiatric/Behavioral: The patient is not nervous/anxious. 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 No date: History of colon polyps No date: Hypertension No date: Kidney disease No date: BARRON (nonalcoholic steatohepatitis) No date: UTI (urinary tract infection) PAST SURGICAL HISTORY 05/09/2012: COLONOSCOPY No date: TUBAL LIGATION HX FAMILY HISTORY Problem Relation Age of Onset Colon Cancer Mother other (Liver disease) Mother Social History Tobacco Use Smoking status: Former Smokeless tobacco: Never Vaping Use Vaping Use: Never used Substance Use Topics Alcohol use: No Drug use: No Current Outpatient Medications Medication Sig SITagliptin phosphate (JANUVIA) 25 mg tablet Take 1 tablet by mouth once daily. atenolol (TENORMIN) 50 mg tablet Take 1 tablet by mouth once daily. ferrous sulfate 325 mg (65 mg iron) tablet Take 1 tablet by mouth every afternoon. fluticasone (FLONASE) 50 mcg/actuation nasal spray Use 2 Sprays in each nostril once daily. omeprazole (PRILOSEC) 40 mg capsule Take 1 capsule by mouth every afternoon. rosuvastatin (CRESTOR) 20 mg tablet Take 1 tablet by mouth once daily. VITAMIN B-12 1,000 mcg tab take 1 tablet by mouth every day levothyroxine (SYNTHROID) 50 mcg tablet take 1 tablet by mouth every day cholecalciferol, vitamin D3, (VITAMIN D3 ORAL) Take by mouth. aspirin 81 mg chewable tablet Take 81 mg by mouth. Vitamin E, dl, acetate, (VITAMIN E) 400 unit capsule Take 800 Units by mouth. sulfamethoxazole-trimethoprim (BACTRIM DS) 800-160 mg per tablet Take 1 tablet by mouth two times a day for 7 days. silver sulfADIAZINE (SILVADENE) 1 % cream Apply as directed to affected area twice a day nystatin (MYCOSTATIN) powder Apply 1 application to affected area three times a day. APPLY TO AFFECTED AREA Cyanocobalamin 1,000 mcg TbER Take 1 tablet by mouth once daily. (Patient not taking: Reported on 02/27/2024) losartan (COZAAR) 25 mg tablet Take 1 tablet by mouth every afternoon. (Patient not taking: Reported on 02/27/2024) metFORMIN (GLUCOPHAGE) 500 mg tablet Take 1 tablet by mouth two times a day with meals. (Patient not taking: Reported on 02/27/2024) mirabegron (MYRBETRIQ) 25 mg Tb24 Take 1 tablet by mouth once daily. (Patient not taking: Reported on 02/27/2024) citalopram (CELEXA) 20 mg tablet Take 0.5 tablets by mouth once daily for 7 days, THEN 1 tablet once daily. (Patient not taking: Reported on 01/06/2024) potassium chloride SR (MICRO-K) 10 mEq CR capsule TAKE 1 CAPSULE BY MOUTH EVERY DAY NEEDED WITH LASIX (Patient not taking: Reported on 01/06/2024) Blood-Glucose Meter Use to test blood sugar blood sugar diagnostic (BLOOD GLUCOSE TEST) test strip Use to test blood sugar BID Lancets lancets Use to test blood sugar BID benzonatate (TESSALON PERLE) 100 mg capsule (Patient not taking: Reported on 03/07/2023) ACCU-CHEK KENROY PLUS TEST STRP test strip 1 STRIP TWICE DAILY. USE TO TEST BLOOD SUGAR TWICE A DAY MULTIVITAMIN ORAL Take by mouth. (Patient not taking: Reported on 11/22/2022) No current facility-administered medications for this visit. I have confirmed and edited as necessary the past medical, family and social histories, HPI, and ROS obtained (more content not included)... [facility] 03-16-2024 History of Present illness Narrative Images from the original note were not included. [facility] [address] [place] [address] Date of Evaluation: 03/16/2024 Patient Name: Mikel Winston : 1945 Chief Complaint: Patient presents with: Edema: Started swelling and seeping Right leg May - Left leg started on Nursing Intake: There are no exam notes on file for this visit. Subjective Ms. Winston is a 78 year old female who presents with the following complaint(s): The history is provided by the patient. No manager language was used. Edema This is a new problem. Episode onset: x 3 days. Pertinent negatives include no chest pain, coughing, fatigue, headaches, numbness or weakness. Associated symptoms comments: Swelling, redness, itching, seeping clear fluid left lower leg. Review of Systems Constitutional: Negative for fatigue and unexpected weight change. HENT: Negative for nosebleeds. Eyes: Negative for redness and visual disturbance. Respiratory: Negative for apnea, cough and shortness of breath. Cardiovascular: Negative for chest pain and palpitations. Genitourinary: Negative for hematuria. Skin: Left lower leg swelling, clear drainage, red, and itching Neurological: Negative for dizziness, weakness, light-headedness, numbness and headaches. Hematological: Does not bruise/bleed easily. Psychiatric/Behavioral: The patient is not nervous/anxious. 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 No date: History of colon polyps No date: Hypertension No date: Kidney disease No date: BARRON (nonalcoholic steatohepatitis) No date: UTI (urinary tract infection) PAST SURGICAL HISTORY 05/09/2012: COLONOSCOPY No date: TUBAL LIGATION HX FAMILY HISTORY Problem Relation Age of Onset Colon Cancer Mother other (Liver disease) Mother Social History Tobacco Use Smoking status: Former Smokeless tobacco: Never Vaping Use Vaping Use: Never used Substance Use Topics Alcohol use: No Drug use: No Current Outpatient Medications Medication Sig SITagliptin phosphate (JANUVIA) 25 mg tablet Take 1 tablet by mouth once daily. atenolol (TENORMIN) 50 mg tablet Take 1 tablet by mouth once daily. ferrous sulfate 325 mg (65 mg iron) tablet Take 1 tablet by mouth every afternoon. fluticasone (FLONASE) 50 mcg/actuation nasal spray Use 2 Sprays in each nostril once daily. omeprazole (PRILOSEC) 40 mg capsule Take 1 capsule by mouth every afternoon. rosuvastatin (CRESTOR) 20 mg tablet Take 1 tablet by mouth once daily. VITAMIN B-12 1,000 mcg tab take 1 tablet by mouth every day levothyroxine (SYNTHROID) 50 mcg tablet take 1 tablet by mouth every day cholecalciferol, vitamin D3, (VITAMIN D3 ORAL) Take by mouth. aspirin 81 mg chewable tablet Take 81 mg by mouth. Vitamin E, dl, acetate, (VITAMIN E) 400 unit capsule Take 800 Units by mouth. sulfamethoxazole-trimethoprim (BACTRIM DS) 800-160 mg per tablet Take 1 tablet by mouth two times a day for 7 days. silver sulfADIAZINE (SILVADENE) 1 % cream Apply as directed to affected area twice a day nystatin (MYCOSTATIN) powder Apply 1 application to affected area three times a day. APPLY TO AFFECTED AREA Cyanocobalamin 1,000 mcg TbER Take 1 tablet by mouth once daily. (Patient not taking: Reported on 02/27/2024) losartan (COZAAR) 25 mg tablet Take 1 tablet by mouth every afternoon. (Patient not taking: Reported on 02/27/2024) metFORMIN (GLUCOPHAGE) 500 mg tablet Take 1 tablet by mouth two times a day with meals. (Patient not taking: Reported on 02/27/2024) mirabegron (MYRBETRIQ) 25 mg Tb24 Take 1 tablet by mouth once daily. (Patient not taking: Reported on 02/27/2024) citalopram (CELEXA) 20 mg tablet Take 0.5 tablets by mouth once daily for 7 days, THEN 1 tablet once daily. (Patient not taking: Reported on 01/06/2024) potassium chloride SR (MICRO-K) 10 mEq CR capsule TAKE 1 CAPSULE BY MOUTH EVERY DAY NEEDED WITH LASIX (Patient not taking: Reported on 01/06/2024) Blood-Glucose Meter Use to test blood sugar blood sugar diagnostic (BLOOD GLUCOSE TEST) test strip Use to test blood sugar BID Lancets lancets Use to test blood sugar BID benzonatate (TESSALON PERLE) 100 mg capsule (Patient not taking: Reported on 03/07/2023) ACCU-CHEK KENROY PLUS TEST STRP test strip 1 STRIP TWICE DAILY. USE TO TEST BLOOD SUGAR TWICE A DAY MULTIVITAMIN ORAL Take by mouth. (Patient not taking: Reported on 11/22/2022) No current facility-administered medications for this visit. I have confirmed and edited as necessary the past medical, family and social histories, HPI, and ROS obtained by others. Objective BP 120/52 Pulse 60 Ht 5' 4 (1.63m) Wt 196 lb (88.9kg) SpO2 99% BMI 33.63 kg/(m^2). Physical Exam Vitals and nursing note reviewed. Constitutional: General: She is not in acute distress. Appearance: Normal appearance. She is well-developed. She is not ill-appearing. HENT: Head: Normocephalic. Mouth/Throat: Pharynx: Uvula midline. Eyes: General: Lids are normal. Vision grossly intact. Gaze aligned appropriately. No scleral icterus. Right eye: No discharge. Left eye: No discharge. Extraocular Movements: Extraocular movements intact. Conjunctiva/sclera: Conjunctivae normal. Pupils: Pupils are equal, round, and reactive to light. Cardiovascular: Rate and Rhythm: Normal rate and regular rhythm. Pulses: Normal pulses. Heart sounds: Normal heart sounds. Musculoskeletal: Right shoulder: Normal. Left shoulder: Normal. Cervical back: Full passive range of motion without pain. Thoracic back: Normal. Lumbar back: Normal. Right knee: Normal. Left knee: Normal. Skin: General: Skin is warm. Findings: Erythema (left lower leg redness, swelling.) present. Comments: Left lower leg cellulitis Neurological: General: No focal deficit present. Mental Status: She is alert and oriented to person, place, and time. Mental status is at baseline. Sensory: Sensation is intact. Motor: Motor function is intact. Psychiatric: Attention and Perception: Attention and perception normal. Mood and Affect: Mood normal. Speech: Speech normal. Behavior: Behavior normal. Thought Content: Thought content normal. Judgment: Judgment normal. ASSESSMENT/PLAN: 1. Cellulitis of left lower leg - ICD9: 682.6, ICD10: L03.116 - Start Bactrim DS - Discussed the use of Silvadene cream and how to apply - Take Benadryl as needed for itching - SULFAMETHOXAZOLE 800 MG-TRIMETHOPRIM 160 MG TABLET - SILVER SULFADIAZINE 1 % TOPICAL CREAM Return if symptoms worsen or fail to improve. Komal Cohn DO Attestation: Scribe Attestation: The patient is seen and examined by Dr. Cohn and the following reflects his/her service. Scribed by Marilin Rosales LPN March 16, 2024 4:24 PMProvider Attestation: I, Komal Cohn DO personally performed the services described in this documentation. All medical record entries made by the scribe were at my direction and in my presence. I have reviewed the chart and discharge instructions (if applicable) and agree that the record reflects my personal performance and is accurate and complete. 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 When signed, put in mail to the Pt. Sylvia Monroy [facility] 03-14-2024 History of Present illness Narrative Images from the original note were not included. [facility] [address] [facility] [id number] Dept: [phone] Dept Loc: [phone] DATE of SERVICE:03/14/24 TIME of SERVICE: 1:23 PM : 1945 Chief Complaint: Chief Complaint Patient presents with Annual Exam History of PresentIllness: Mikel Winston is a 78 y.o. female here for routine follow-up. Her history includes Coronary artery disease, coronary artery bypass surgery 2009, percutaneous coronary interventions in 2018 Aortic stenosis, last echocardiogram December 2022 showing a left ventricular ejection fraction 45%, mean gradient 21, valve area 1.1 cm Chronic kidney disease, glomerular filtration rates in the 30s. She had a hospital stay for urinary tract infection and delirium in January 2024. She comes in today generally well. She struggles with incontinence, urinary incontinence. Her diuretics were held because of some renal insufficiency. She has severe lower extremity edema and vesicular lesions and some weeping of serous fluid from those vesicular lesions. She does not have shortness of breath or chest pain or syncope or near syncope. She does note some occasional exertional dyspnea (I should say) if she does something well above what she would normally do. Past Medical History: Past Medical History: Diagnosis Date CAD (coronary artery disease) Cirrhosis of liver (HCC) Diabetes mellitus (HCC) Hypertension Osteoporosis Thyroid disease Past Surgical History Past Surgical History: Procedure Laterality Date APPENDECTOMY CHOLECYSTECTOMY CORONARY ARTERY BYPASS GRAFT TOTAL KNEE ARTHROPLASTY Right TUBAL LIGATION Family History Family History Problem Relation Name Age of Onset Stroke Father's Brother Diabetes Father Mental illness Mother Coronary artery disease Brother Social History Social History Tobacco Use Smoking status: Never Smokeless tobacco: Never Substance Use Topics Alcohol use: No Drug use: No Allergies: Allergies Allergen Reactions Codeine Hives Medications: Current Outpatient Medications: alpha tocopherol (Vitamin E) 100 units capsule, Take 100 Units by mouth daily., Disp: , Rfl: aspirin 81 MG EC tablet, Take 81 mg by mouth daily., Disp: , Rfl: atenolol (Tenormin) 50 MG tablet, Take 50 mg by mouth daily., Disp: , Rfl: Cholecalciferol (Vitamin D) 125 MCG (5000 UT) capsule, Take 5,000 Units by mouth daily., Disp: , Rfl: cyanocobalamin (Vitamin B-12) 100 MCG tablet, Take 100 mcg by mouth daily., Disp: , Rfl: ferrous sulfate 325 (65 Fe) MG tablet, Take 325 mg by mouth daily (with breakfast)., Disp: , Rfl: omeprazole (PriLOSEC) [address] capsule, Take 40 mg by mouth every morning (before breakfast). Do not crush or chew., Disp: , Rfl: rosuvastatin (Crestor) 20 MG tablet, Take 1 tablet (20 mg) by mouth daily., Disp: 90 tablet, Rfl: 0 SITagliptin (Januvia) 25 MG tablet, Take 1 tablet (25 mg) by mouth daily., Disp: 30 tablet, Rfl: 1 furosemide (Lasix) 20 MG tablet, Take 20 mg by mouth daily., Disp: , Rfl: levothyroxine (Synthroid, Levoxyl) 50 MCG tablet, TAKE 1 TABLET BY MOUTH DAILY, Disp: 30 tablet, Rfl: 3 mirabegron ER (Myrbetriq) 25 MG 24 hr tablet, Take 25 mg by mouth Nightly. Do not crush, chew, or split., Disp: , Rfl: Review of Systems: Review of Systems Constitutional: Negative for activity change, chills, diaphoresis, fatigue and fever. HENT: Negative for nosebleeds and trouble swallowing. Eyes: Negative for discharge and visual disturbance. Respiratory: Negative for apnea, cough, chest tightness, shortness of breath and wheezing. Cardiovascular: Positive for leg swelling. Negative for chest pain and palpitations. Gastrointestinal: Negative for abdominal distention, abdominal pain, blood in stool, diarrhea, nausea and vomiting. Endocrine: Negative for cold intolerance and heat intolerance. Genitourinary: Negative for hematuria. Musculoskeletal: Negative for gait problem and myalgias. Skin: Negative for color change and rash. Neurological: Negative for dizziness, seizures, syncope, facial asymmetry, speech difficulty, weakness, light-headedness, numbness and headaches. Hematological: Does not bruise/bleed easily. Psychiatric/Behavioral: Negative for dysphoric mood. Physical Examination: Vitals: Vitals: 03/14/24 1306 BP: (!) 178/84 BP Location: Left arm Patient Position: Sitting BP Cuff Size: Large adult Pulse: 70 SpO2: 99% Weight: 197 lb (89.4 kg) Height: 5' 4 (1.626 m) Body mass index is 33.81 kg/m . Physical Exam She appears well. Her neck veins are normal. Her lungs are clear. She has a grade 2 harsh systolic murmur of aortic stenosis. She has severe bilateral pitting pretibial edema with some erythema though it does not look intense enough for infection. Laboratory Tests: Lab Results Component Value Date WBC 8.3 02/02/2024 HGB 11.3 (L) 02/02/2024 HCT 35.7 02/02/2024 MCV 99.7 (H) 02/02/2024 PLT 146 02/02/2024 Lab Results Component Value Date GLUCOSE 120 (H) 02/02/2024 CALCIUM 8.8 02/02/2024 NA 134 (L) 02/02/2024 K 4.5 02/02/2024 CO2 22 02/02/2024 CL 102 02/02/2024 BUN 34 (H) 02/02/2024 CREATININE 1.66 (H) 02/02/2024 @LASTCMP@ No results found for: CHLPL, CHOL No results found for: TRIG No results found for: HDL No results found for: LDLCALC NT PRO BNP Date Value Ref Range Status 01/28/2024 1,480 (H) <20 - 300 pg/mL Final Cardiac Tests: ECG: Not needed Focused cardiac ultrasound: Ordering a formal transthoracic echocardiogram Gre[employer] Worker present for focused cardiac ultrasound: Not applicable Assessment and Plan: No diagnosis found. Medical decision making Her aortic stenosis is probably moderate or severe. Her coronary disease appears asymptomatic. Her chronic kidney disease is ongoing. Her lower extremity edema is probably a combination of her heart disease, chronic kidney disease, and venous insufficiency. The big question is whether or not she has intravascular volume overload. Diagnostically, I sent a basic metabolic panel to be done this March 19 and an echocardiogram. Therapeutically, I had her take furosemide 80 mg a day for 3 days in a row and is much as possible elevate her legs. Educationally, reviewed all this with her and her friend. Will see how her basic metabolic panel is Tuesday and see how she has responded to diuretics and follow-up on her echocardiogram. I also talked to her about aortic valve replacement if that would be needed. I will schedule follow-up in a year but follow-up on these tests. documented in this encounter [facility] 03-14-2024 Note HNO ID: [id number] Author: LATONYA ROSADO RN Service: ? Author Type: Registered Nurse Type: Progress Notes Filed: 03/14/2024 10:42 Note Text: AG TRANSITIONAL CARE MANAGEMENT (TCM) FOLLOW-UP NOTE Provider Action/FYI: Patient identified by name and date of : YES Spoke to: patient Diagnosis: N/A Summary: Patient's leg that had cellulitis is better. She was scratching the non infected leg and now that leg has some redness. She is calling PCP to be seen again. Health leads screening tool questions performed? No N/A Concerns: Fox Raiser plan for next outreach: Will follow-up if needed Signature: Latonya Rosado RN March 14, 2024 [facility] 03-14-2024 History of Present illness Narrative AG TRANSITIONAL CARE MANAGEMENT (TCM) FOLLOW-UP NOTE Provider Action/FYI: Patient identified by name and date of : YES Spoke to: patient Diagnosis: N/A Summary: Patient's leg that had cellulitis is better. She was scratching the non infected leg and now that leg has some redness. She is calling PCP to be seen again. Health leads screening tool questions performed? No N/A Concerns: Fox Raiser plan for next outreach: Will follow-up if needed Signature: Latonya Rosado RN March 14, 2024 documented in this encounter [facility] 03-14-2024 Note Patient Outreach (AG ACM) MIKEL WINSTON ([id number]) 1945 F Date Time Provider Department 03/14/24 LATONYA ROSADO [facility] During your visit today, we recorded the following information about you: Latonya Rosado RN 03/14/2024 10:42 AM Signed AG TRANSITIONAL CARE MANAGEMENT (TCM) FOLLOW-UP NOTE Provider Action/FYI: Patient identified by name and date of : YES Spoke to: patient Diagnosis: N/A Summary: Patient's leg that had cellulitis is better. She was scratching the non infected leg and now that leg has some redness. She is calling PCP to be seen again. Health leads screening tool questions performed? No N/A Concerns: Fox Raiser plan for next outreach: Will follow-up if needed Signature: Latonya Rosado RN March 14, 2024 Allergies As of Date: 03/14/2024 Noted Allergy Reaction CODEINE 02/24/2016 4 - Hives 2 - Rash CODEINE SULFATE 06/13/2018 16 - Unknown Date Reviewed: 02/27/2024 Reviewed by: Marilin Rosales LPN - Fully Assessed Reason for Visit: Transition Of Care [4074] Prescriptions as of 03/14/2024 - nystatin (MYCOSTATIN) powder Apply 1 application to affected area three times a day. APPLY TO AFFECTED AREA - SITagliptin phosphate (JANUVIA) 25 mg tablet Take 1 tablet by mouth once daily. - atenolol (TENORMIN) 50 mg tablet Take 1 tablet by mouth once daily. - Cyanocobalamin 1,000 mcg TbER Take 1 tablet by mouth once daily. - ferrous sulfate 325 mg (65 mg iron) tablet Take 1 tablet by mouth every afternoon. - fluticasone (FLONASE) 50 mcg/actuation nasal spray Use 2 Sprays in each nostril once daily. - losartan (COZAAR) 25 mg tablet Take 1 tablet by mouth every afternoon. - metFORMIN (GLUCOPHAGE) 500 mg tablet Take 1 tablet by mouth two times a day with meals. - mirabegron (MYRBETRIQ) 25 mg Tb24 Take 1 tablet by mouth once daily. - omeprazole (PRILOSEC) 40 mg capsule Take 1 capsule by mouth every afternoon. - rosuvastatin (CRESTOR) 20 mg tablet Take 1 tablet by mouth once daily. - citalopram (CELEXA) 20 mg tablet Take 0.5 tablets by mouth once daily for 7 days, THEN 1 tablet once daily. - VITAMIN B-12 1,000 mcg tab take 1 tablet by mouth every day - levothyroxine (SYNTHROID) 50 mcg tablet take 1 tablet by mouth every day - potassium chloride SR (MICRO-K) 10 mEq CR capsule TAKE 1 CAPSULE BY MOUTH EVERY DAY NEEDED WITH LASIX - Blood-Glucose Meter Use to test blood sugar - blood sugar diagnostic (BLOOD GLUCOSE TEST) test strip Use to test blood sugar BID - Lancets lancets Use to test blood sugar BID - benzonatate (TESSALON PERLE) 100 mg capsule - ACCU-CHEK KENROY PLUS TEST STRP test strip 1 STRIP TWICE DAILY. USE TO TEST BLOOD SUGAR TWICE A DAY - MULTIVITAMIN ORAL Take by mouth. - cholecalciferol, vitamin D3, (VITAMIN D3 ORAL) Take by mouth. - aspirin 81 mg chewable tablet Take 81 mg by mouth. - Vitamin E, dl, acetate, (VITAMIN E) 400 unit capsule Take 800 Units by mouth. Problem List As Of Date 03/14/2024 Noted Resolved Hypertension [I10] Hyperlipidemia, mixed [E78.2] 08/28/2020 Diabetes (HCC) [E11.9] 08/28/2020 Generalized edema [R60.1] 08/28/2020 Hypothyroidism, acquired [E03.9] 08/28/2020 History of DVT (deep vein thrombosis) [Z86.718] 08/28/2020 Nocturnal hypoxia [G47.34] 08/28/2020 Seasonal allergies [J30.2] 11/26/2020 Blood infection [B99.9] 01/24/2022 Bilateral leg edema [R60.0] 05/03/2022 Chronic kidney disease, stage 3b ([facility]) [N18.32] 12/01/2022 Acute deep vein thrombosis (DVT) of other speci*12/01/2022 Congestive heart failure, unspecified HF chroni*12/01/2022 Angina at rest ([facility]) [I20.89] 12/01/2022 Class 1 obesity with body mass index (BMI) of 3*12/01/2022 Systolic murmur [R01.1] 12/26/2022 Platelets decreased ([facility]) [D69.6] 12/26/2022 Depression [F32.A] 12/11/2023 Encounter Status:Closed by LATONYA ROSADO on 03/14/24 [facility] 02-29-2024 Note HNO ID: [id number] Author: LATONYA ROSADO RN Service: ? Author Type: Registered Nurse Type: Progress Notes Filed: 02/29/2024 12:15 Note Text: AG TRANSITIONAL CARE MANAGEMENT (TCM) FOLLOW-UP NOTE Provider Action/FYI: Patient identified by name and date of : YES Spoke to: patient Diagnosis: N/A Summary: Patient's cellulitis getting better. Patient feeling well. Patient completed TCM visit 02/27/24. No needs for PCP at this time. Health leads screening tool questions performed? No N/A Concerns: Fox Raiser plan for next outreach: Will follow-up 2 weeks Signature: Latonya Rosado RN February 29, 2024 [facility] 02-29-2024 History of Present illness Narrative AG TRANSITIONAL CARE MANAGEMENT (TCM) FOLLOW-UP NOTE Provider Action/FYI: Patient identified by name and date of : YES Spoke to: patient Diagnosis: N/A Summary: Patient's cellulitis getting better. Patient feeling well. Patient completed TCM visit 02/27/24. No needs for PCP at this time. Health leads screening tool questions performed? No N/A Concerns: Fox Raiser plan for next outreach: Will follow-up 2 weeks Signature: Latonya Rosado RN February 29, 2024 documented in this encounter [facility] 02-29-2024 Note Patient Outreach (AG ACM) MIKEL WINSTON ([id number]) 1945 F Date Time Provider Department 02/29/24 LATONYA ROSADO [facility] During your visit today, we recorded the following information about you: Latonya Rosado RN 02/29/2024 12:15 PM Signed TRANSITIONAL CARE MANAGEMENT (TCM) FOLLOW-UP NOTE Provider Action/FYI: Patient identified by name and date of : YES Spoke to: patient Diagnosis: N/A Summary: Patient's cellulitis getting better. Patient feeling well. Patient completed TCM visit 02/27/24. No needs for PCP at this time. Health leads screening tool questions performed? No N/A Concerns: Fox Raiser plan for next outreach: Will follow-up 2 weeks Signature: Latonya Rosado RN February 29, 2024 Allergies As of Date: 02/29/2024 Noted Allergy Reaction CODEINE 02/24/2016 4 - Hives 2 - Rash CODEINE SULFATE 06/13/2018 16 - Unknown Date Reviewed: 02/27/2024 Reviewed by: Marilin Rosales LPN - Fully Assessed Reason for Visit: Transition Of Care [4074] Prescriptions as of 02/29/2024 - nystatin (MYCOSTATIN) powder Apply 1 application to affected area three times a day. APPLY TO AFFECTED AREA - SITagliptin phosphate (JANUVIA) 25 mg tablet Take 1 tablet by mouth once daily. - atenolol (TENORMIN) 50 mg tablet Take 1 tablet by mouth once daily. - Cyanocobalamin 1,000 mcg TbER Take 1 tablet by mouth once daily. - ferrous sulfate 325 mg (65 mg iron) tablet Take 1 tablet by mouth every afternoon. - fluticasone (FLONASE) 50 mcg/actuation nasal spray Use 2 Sprays in each nostril once daily. - losartan (COZAAR) 25 mg tablet Take 1 tablet by mouth every afternoon. - metFORMIN (GLUCOPHAGE) 500 mg tablet Take 1 tablet by mouth two times a day with meals. - mirabegron (MYRBETRIQ) 25 mg Tb24 Take 1 tablet by mouth once daily. - omeprazole (PRILOSEC) 40 mg capsule Take 1 capsule by mouth every afternoon. - rosuvastatin (CRESTOR) 20 mg tablet Take 1 tablet by mouth once daily. - citalopram (CELEXA) 20 mg tablet Take 0.5 tablets by mouth once daily for 7 days, THEN 1 tablet once daily. - VITAMIN B-12 1,000 mcg tab take 1 tablet by mouth every day - levothyroxine (SYNTHROID) 50 mcg tablet take 1 tablet by mouth every day - potassium chloride SR (MICRO-K) 10 mEq CR capsule TAKE 1 CAPSULE BY MOUTH EVERY DAY NEEDED WITH LASIX - Blood-Glucose Meter Use to test blood sugar - blood sugar diagnostic (BLOOD GLUCOSE TEST) test strip Use to test blood sugar BID - Lancets lancets Use to test blood sugar BID - benzonatate (TESSALON PERLE) 100 mg capsule - ACCU-CHEK KENROY PLUS TEST STRP test strip 1 STRIP TWICE DAILY. USE TO TEST BLOOD SUGAR TWICE A DAY - MULTIVITAMIN ORAL Take by mouth. - cholecalciferol, vitamin D3, (VITAMIN D3 ORAL) Take by mouth. - aspirin 81 mg chewable tablet Take 81 mg by mouth. - Vitamin E, dl, acetate, (VITAMIN E) 400 unit capsule Take 800 Units by mouth. Problem List As Of Date 02/29/2024 Noted Resolved Hypertension [I10] Hyperlipidemia, mixed [E78.2] 08/28/2020 Diabetes (HCC) [E11.9] 08/28/2020 Generalized edema [R60.1] 08/28/2020 Hypothyroidism, acquired [E03.9] 08/28/2020 History of DVT (deep vein thrombosis) [Z86.718] 08/28/2020 Nocturnal hypoxia [G47.34] 08/28/2020 Seasonal allergies [J30.2] 11/26/2020 Blood infection [B99.9] 01/24/2022 Bilateral leg edema [R60.0] 05/03/2022 Chronic kidney disease, stage 3b (HCC) [N18.32] 12/01/2022 Acute deep vein thrombosis (DVT) of other speci*12/01/2022 Congestive heart failure, unspecified HF chroni*12/01/2022 Angina at rest (HCC) [I20.89] 12/01/2022 Obesity, Class I, BMI 30-34.9 [E66.9] 12/01/2022 Systolic murmur [R01.1] 12/26/2022 Platelets decreased (HCC) [D69.6] 12/26/2022 Depression [F32.A] 12/11/2023 Encounter Status:Closed by LATONYA ROSADO on 02/29/24 [facility] 02-27-2024 Note HNO ID: [id number] Author: KOMAL COHN, DO Service: ? Author Type: Physician Type: Progress Notes Filed: 03/05/2024 21:46 Note Text: Transitional Care Management TCM Eligibility Documentation Program: Transitional Care Management Status: Enrolled Effective Dates: 02/15/2024 - present Responsible Staff: Latonya Rosado RN Discharge date: 02/13/2024 (Program start) Date of initial contact: 02/15/2024 Initial contact Target status: Successful; Contact made within 2 business days post-discharge Summary Discharged from: [facility] Admit Date: 01/28/24 Admitted for: cellulitis of right lower extremity and acute cystitis without hematuria Provider Documentation Mikel Winston is a 78 year old female here today for a follow up to recent hospitalization. I have reviewed the patient's hospital course including diagnostic testing performed during this hospitalization, their discharge medications, and my assessment and plan with the patient and any family members present at today's visit. Review of Systems Constitutional: Negative for malaise/fatigue and weight loss. HENT: Negative for nosebleeds. Eyes: Negative for blurred vision and double vision. Respiratory: Negative for cough and shortness of breath. Cardiovascular: Negative for chest pain, palpitations, orthopnea, claudication, leg swelling and PND. Gastrointestinal: Negative for abdominal pain. Genitourinary: Negative for hematuria. Musculoskeletal: Negative for joint pain and myalgias. Skin: Negative. Neurological: Negative for dizziness, tingling, sensory change, focal weakness, weakness and headaches. Endo/Heme/Allergies: Does not bruise/bleed easily. Vitals BP 140/60 Pulse 63 Temp 97.5 Ht 5' 4 (1.63m) Wt 199 lb (90.3kg) SpO2 98% BMI 34.14 kg/(m2). Physical Exam Vitals and nursing note reviewed. HENT: Head: Normocephalic and atraumatic. Right Ear: Tympanic membrane, ear canal and external ear normal. Left Ear: Tympanic membrane, ear canal and external ear normal. Nose: Nose normal. Eyes: General: Lids are normal. Conjunctiva/sclera: Conjunctivae normal. Pupils: Pupils are equal, round, and reactive to light. Cardiovascular: Rate and Rhythm: Normal rate and regular rhythm. Heart sounds: Normal heart sounds. Pulmonary: Effort: Pulmonary effort is normal. Breath sounds: Normal breath sounds. Abdominal: General: Bowel sounds are normal. Palpations: Abdomen is soft. Tenderness: There is no abdominal tenderness. Musculoskeletal: General: Normal range of motion. Cervical back: Normal range of motion and neck supple. Skin: General: Skin is warm and dry. Neurological: Mental Status: She is alert and oriented to person, place, and time. Gait: Gait is intact. Deep Tendon Reflexes: Reflexes are normal and symmetric. Psychiatric: Mood and Affect: Mood and affect normal. Cognition and Memory: Memory normal. Judgment: Judgment normal. ASSESSMENT/PLAN: 1. Primary hypertension - ICD9: 401.9, ICD10: I10 (primary diagnosis) - Controlled - Continue current medications - Recommend home blood pressure monitoring, to bring results to next visit - Encouraged sodium restriction, DASH or Mediterranean diet - Recommend regular aerobic exercise 2. Cellulitis of right lower extremity - ICD9: 682.6, ICD10: L03.115 - Improved 3. Acute cystitis without hematuria - ICD9: 595.0, ICD10: N30.00 - Follow up Hospital Admission. - Resolved 4. Class 1 obesity with body mass index (BMI) of 34.0 to 34.9 in adult, unspecified obesity type, unspecified whether serious comorbidity present - ICD9: 278.00, V85.34, ICD10: E66.9, Z68.34 February 27, 2024 3:24 PM DO Delores Cisneros Attestation: The patient is seen and examined by Dr. Cohn and the following reflects his/her service. Scribed by Delores Cordoba February 27, 2024 3:52 PM Komal Cohn DO Provider Attestation: I, Komal Cohn DO personally performed the services described in this documentation. All medical record entries made by the scribe were at my direction and in my presence. I have reviewed the chart and discharge instructions (if applicable) and agree that the record reflects my personal performance and is accurate and complete. Electronically Signed: Komal Cohn DO, February 27, 2024 3:54 PM [facility] 02-27-2024 History of Present illness Narrative Transitional Care Management TCM Eligibility Documentation Program: Transitional Care Management Status: Enrolled Effective Dates: 02/15/2024 - present Responsible Staff: Latonya Rosado RN Discharge date: 02/13/2024 (Program start) Date of initial contact: 02/15/2024 Initial contact Target status: Successful; Contact made within 2 business days post-discharge Summary Discharged from: [facility] Admit Date: 01/28/24 Admitted for: cellulitis of right lower extremity and acute cystitis without hematuria Provider Documentation Mikel Winston is a 78 year old female here today for a follow up to recent hospitalization. I have reviewed the patient's hospital course including diagnostic testing performed during this hospitalization, their discharge medications, and my assessment and plan with the patient and any family members present at today's visit. Review of Systems Constitutional: Negative for malaise/fatigue and weight loss. HENT: Negative for nosebleeds. Eyes: Negative for blurred vision and double vision. Respiratory: Negative for cough and shortness of breath. Cardiovascular: Negative for chest pain, palpitations, orthopnea, claudication, leg swelling and PND. Gastrointestinal: Negative for abdominal pain. Genitourinary: Negative for hematuria. Musculoskeletal: Negative for joint pain and myalgias. Skin: Negative. Neurological: Negative for dizziness, tingling, sensory change, focal weakness, weakness and headaches. Endo/Heme/Allergies: Does not bruise/bleed easily. Vitals BP 140/60 Pulse 63 Temp 97.5 Ht 5' 4 (1.63m) Wt 199 lb (90.3kg) SpO2 98% BMI 34.14 kg/(m^2). Physical Exam Vitals and nursing note reviewed. HENT: Head: Normocephalic and atraumatic. Right Ear: Tympanic membrane, ear canal and external ear normal. Left Ear: Tympanic membrane, ear canal and external ear normal. Nose: Nose normal. Eyes: General: Lids are normal. Conjunctiva/sclera: Conjunctivae normal. Pupils: Pupils are equal, round, and reactive to light. Cardiovascular: Rate and Rhythm: Normal rate and regular rhythm. Heart sounds: Normal heart sounds. Pulmonary: Effort: Pulmonary effort is normal. Breath sounds: Normal breath sounds. Abdominal: General: Bowel sounds are normal. Palpations: Abdomen is soft. Tenderness: There is no abdominal tenderness. Musculoskeletal: General: Normal range of motion. Cervical back: Normal range of motion and neck supple. Skin: General: Skin is warm and dry. Neurological: Mental Status: She is alert and oriented to person, place, and time. Gait: Gait is intact. Deep Tendon Reflexes: Reflexes are normal and symmetric. Psychiatric: Mood and Affect: Mood and affect normal. Cognition and Memory: Memory normal. Judgment: Judgment normal. ASSESSMENT/PLAN: 1. Primary hypertension - ICD9: 401.9, ICD10: I10 (primary diagnosis) - Controlled - Continue current medications - Recommend home blood pressure monitoring, to bring results to next visit - Encouraged sodium restriction, DASH or Mediterranean diet - Recommend regular aerobic exercise 2. Cellulitis of right lower extremity - ICD9: 682.6, ICD10: L03.115 - Improved 3. Acute cystitis without hematuria - ICD9: 595.0, ICD10: N30.00 - Follow up Hospital Admission. - Resolved 4. Class 1 obesity with body mass index (BMI) of 34.0 to 34.9 in adult, unspecified obesity type, unspecified whether serious comorbidity present - ICD9: 278.00, V85.34, ICD10: E66.9, Z68.34 February 27, 2024 3:24 PM Komal Cohn DO Scribe Attestation: The patient is seen and examined by Dr. Cohn and the following reflects his/her service. Scribed by Delores Cordoba February 27, 2024 3:52 PM Komal Cohn DO Provider Attestation: Komal Anaya DO personally performed the services described in this documentation. All medical record entries made by the scribe were at my direction and in my presence. I have reviewed the chart and discharge instructions (if applicable) and agree that the record reflects my personal performance and is accurate and complete. Electronically Signed: Komal Cohn DO, February 27, 2024 3:54 PM documented in this encounter [facility] 02-15-2024 Note HNO ID: [id number] Author: LATONYA ROSADO, RN Service: ? Author Type: Registered Nurse Type: Progress Notes Filed: 02/15/2024 11:45 Note Text: TRANSITIONAL CARE MANAGEMENT (TCM) COMMUNITY MONITORING PROGRAM - [place] Provider Action/FYI: TCM appointment 02/27/24 Started on . Request for prescription sent to PCP. SUMMARY: [facility] discharged [facility]. Admitted for: Cellulitis Patient seen Inpatient THUAN Visit? N/A. Patient seen ICARE Program? No. Contact made with patient: Yes Hi my name is Latonya Rosado RN and I am calling from the [facility] on behalf of your PCP, Komal Cohn, DO I understand you were recently in the hospital so I am calling to check in with you to ensure you are feeling well now that you?re home. Do you mind if I ask you a few questions related to your hospital stay and well-being Yes Contact with patient post discharge, spoke to patient. Patient identified by name and . Do you feel your health is BETTER, WORSE, or the SAME since leaving the hospital? Better ACTION TAKEN: Patient indicated symptoms are better or same, no action required. Continue outreach. N/A MEDICATIONS: Many patients have questions or concerns about their medications once they are home. Do you have any questions about taking your medications or which medication you should be on? No Do you need any medication refills at this time, including any of the medications you might take only when needed? Yes ACTION TAKEN: Patient needs refill(s) - Routed to PCP, indicated the medications and preferred pharmacy in the FYI box. For RNs or Pharmacy completing outreach ONLY, was a medication review completed? Yes, Meds from [facility]. SOCIAL: We would like to make sure you have what you need so that your basics needs are met - including your personal safety. HEALTH LEADS SCREENING TOOL QUESTIONS: Do you often feel you lack companionship? No Do you ever need help reading or understanding hospital materials? No In the last 12 months, have you changed how you take medications to save money? No In the past 12 months, has lack of transportation kept you from medical appointments, work or getting things you need like food, or supplies? No In the last 12 months, did you ever eat less than you felt you should because there wasn't enough money for food? No During the winter, do you anticipate having a problem paying your heating bill? No In the next 2 months, are you worried you might not have stable housing? No Would you like to speak with a social work steam plant operator to help give you support for any of these needs? No It can be normal to feel anxious or down during a time like this. Would you like to talk to a mental health professional about how you have been feeling? No ACTION TAKEN: No action taken DISCHARGE INTRUCTIONS: Your discharge instructions / After Visit Summary (AVS) are important in guiding you through the recovery process. Do you have any questions related to your discharge instructions? No Do you have all the necessary equipment and supplies at home? Yes ACTION TAKEN: No action required WRAP AROUND SERVICES: N/A Patient educated on importance of primary care provider follow up visit as well as specialty provider follow up visits as indicated. Inform the patient that if they have any questions or concerns prior to that appointment, to call their Primary Care Provider 's office right away. Primary care provider first education provided. I would like to help you schedule a hospital follow-up virtual or telephone visit with your PCP. ACTION TAKEN: TCM Primary Care Provider Visit Scheduled: Yes - Appt date: 02/27/[address] Cohn Your doctor would like us to remind you of the recommendations regarding the coronavirus (Covid19) outbreak: Avoid public places as much as possible. Avoid close contact (within 6 feet) with others you don't live with, especially if they are sick. Stay home if you are sick. Wash your hands regularly for at least 20 seconds with soap and water. Wear a cloth mask in public places to help reduce community spread. Do not go to your Doctor's office unless instructed to do so. For any non-emergency symptoms, call your Doctor's office to get instructions on how to manage (we might recommend a telephone or virtual visit). For emergency symptoms, proceed to Emergency Department as usual but inform them of cough and fever symptoms [place] if present (or call on the way if possible). [facility] 02-15-2024 History of Present illness Narrative TRANSITIONAL CARE MANAGEMENT (TCM) COMMUNITY MONITORING PROGRAM - [place] Provider Action/FYI: TCM appointment 02/27/24 Started on . Request for prescription sent to PCP. SUMMARY: Pt discharged from [facility] on 02/13/24. Admitted for: Cellulitis Patient seen Inpatient THUAN Visit? N/A. Patient seen ICARE Program? No. Contact made with patient: Yes Hi my name is Latonya Rosado RN and I am calling from the [facility] on behalf of your PCP, Komal Cohn, DO I understand you were recently in the hospital so I am calling to check in with you to ensure you are feeling well now that you re home. Do you mind if I ask you a few questions related to your hospital stay and well-being Yes Contact with patient post discharge, spoke to patient. Patient identified by name and . Do you feel your health is BETTER, WORSE, or the SAME since leaving the hospital? Better ACTION TAKEN: Patient indicated symptoms are better or same, no action required. Continue outreach. N/A MEDICATIONS: Many patients have questions or concerns about their medications once they are home. Do you have any questions about taking your medications or which medication you should be on? No Do you need any medication refills at this time, including any of the medications you might take only when needed? Yes ACTION TAKEN: Patient needs refill(s) - Routed to PCP, indicated the medications and preferred pharmacy in the FYI box. For RNs or Pharmacy completing outreach ONLY, was a medication review completed? Yes, Meds from [facility]. SOCIAL: We would like to make sure you have what you need so that your basics needs are met - including your personal safety. HEALTH LEADS SCREENING TOOL QUESTIONS: Do you often feel you lack companionship? No Do you ever need help reading or understanding hospital materials? No In the last 12 months, have you changed how you take medications to save money? No In the past 12 months, has lack of transportation kept you from medical appointments, work or getting things you need like food, or supplies? No In the last 12 months, did you ever eat less than you felt you should because there wasn't enough money for food? No During the winter, do you anticipate having a problem paying your heating bill? No In the next 2 months, are you worried you might not have stable housing? No Would you like to speak with a social work steam plant operator to help give you support for any of these needs? No It can be normal to feel anxious or down during a time like this. Would you like to talk to a mental health professional about how you have been feeling? No ACTION TAKEN: No action taken DISCHARGE INTRUCTIONS: Your discharge instructions / After Visit Summary (AVS) are important in guiding you through the recovery process. Do you have any questions related to your discharge instructions? No Do you have all the necessary equipment and supplies at home? Yes ACTION TAKEN: No action required WRAP AROUND SERVICES: N/A Patient educated on importance of primary care provider follow up visit as well as specialty provider follow up visits as indicated. Inform the patient that if they have any questions or concerns prior to that appointment, to call their Primary Care Provider 's office right away. Primary care provider first education provided. I would like to help you schedule a hospital follow-up virtual or telephone visit with your PCP. ACTION TAKEN: [facility] Primary Care Provider Visit Scheduled: Yes - Appt date: 02/27/[address] Cohn Your doctor would like us to remind you of the recommendations regarding the coronavirus (Covid19) outbreak: Avoid public places as much as possible. Avoid close contact (within 6 feet) with others you don't live with, especially if they are sick. Stay home if you are sick. Wash your hands regularly for at least 20 seconds with soap and water. Wear a cloth mask in public places to help reduce community spread. Do not go to your Doctor's office unless instructed to do so. For any non-emergency symptoms, call your Doctor's office to get instructions on how to manage (we might recommend a telephone or virtual visit). For emergency symptoms, proceed to Emergency Department as usual but inform them of cough and fever symptoms [place] if present (or call on the way if possible). documented in this encounter [facility] 02-15-2024 Note HNO ID: [id number] Author: GOGO BARBOSA RN Service: ? Author Type: Registered Nurse Type: Progress Notes Filed: 02/15/2024 09:23 Note Text: Discharged from [facility] on 02/13/2024 to home. PCC notified. Gogo Barbosa RN February 15, 2024 [facility] 02-15-2024 History of Present illness Narrative Discharged from [facility] on 02/13/2024 to home. PCC notified. Gogo Barbosa RN February 15, 2024 documented in this encounter [facility] 02-15-2024 Note Patient Outreach (AG ACM) MIKEL WINSTON ([id number]) 1945 F Date Time Provider Department 02/15/24 GOGO BARBOSA [facility] During your visit today, we recorded the following information about you: Gogo Barbosa RN 02/15/2024 9:23 AM Signed Discharged from [facility] on 02/13/2024 to home. PCC notified. Gogo Barbosa RN February 15, 2024 Allergies As of Date: 02/15/2024 Noted Allergy Reaction CODEINE 02/24/2016 4 - Hives 2 - Rash CODEINE SULFATE 06/13/2018 16 - Unknown Date Reviewed: 01/06/2024 Reviewed by: Arnel Govea LPN - Fully Assessed Reason for Visit: Transition Of Care [4074] Cmt: Discharged from [facility] to Home Prescriptions as of 02/15/2024 - atenolol (TENORMIN) 50 mg tablet Take 1 tablet by mouth once daily. - Cyanocobalamin 1,000 mcg TbER Take 1 tablet by mouth once daily. - ferrous sulfate 325 mg (65 mg iron) tablet Take 1 tablet by mouth every afternoon. - fluticasone (FLONASE) 50 mcg/actuation nasal spray Use 2 Sprays in each nostril once daily. - losartan (COZAAR) 25 mg tablet Take 1 tablet by mouth every afternoon. - metFORMIN (GLUCOPHAGE) 500 mg tablet Take 1 tablet by mouth two times a day with meals. - mirabegron (MYRBETRIQ) 25 mg Tb24 Take 1 tablet by mouth once daily. - nystatin (MYCOSTATIN) powder Apply 1 application to affected area three times a day. APPLY TO AFFECTED AREA - omeprazole (PRILOSEC) 40 mg capsule Take 1 capsule by mouth every afternoon. - rosuvastatin (CRESTOR) 20 mg tablet Take 1 tablet by mouth once daily. - citalopram (CELEXA) 20 mg tablet Take 0.5 tablets by mouth once daily for 7 days, THEN 1 tablet once daily. - VITAMIN B-12 1,000 mcg tab take 1 tablet by mouth every day - levothyroxine (SYNTHROID) 50 mcg tablet take 1 tablet by mouth every day - potassium chloride SR (MICRO-K) 10 mEq CR capsule TAKE 1 CAPSULE BY MOUTH EVERY DAY NEEDED WITH LASIX - Blood-Glucose Meter Use to test blood sugar - blood sugar diagnostic (BLOOD GLUCOSE TEST) test strip Use to test blood sugar BID - Lancets lancets Use to test blood sugar BID - benzonatate (TESSALON PERLE) 100 mg capsule - ACCU-CHEK KENROY PLUS TEST STRP test strip 1 STRIP TWICE DAILY. USE TO TEST BLOOD SUGAR TWICE A DAY - MULTIVITAMIN ORAL Take by mouth. - cholecalciferol, vitamin D3, (VITAMIN D3 ORAL) Take by mouth. - aspirin 81 mg chewable tablet Take 81 mg by mouth. - Vitamin E, dl, acetate, (VITAMIN E) 400 unit capsule Take 800 Units by mouth. Problem List As Of Date 02/15/2024 Noted Resolved Hypertension [I10] Hyperlipidemia, mixed [E78.2] 08/28/2020 Diabetes (HCC) [E11.9] 08/28/2020 Generalized edema [R60.1] 08/28/2020 Hypothyroidism, acquired [E03.9] 08/28/2020 History of DVT (deep vein thrombosis) [Z86.718] 08/28/2020 Nocturnal hypoxia [G47.34] 08/28/2020 Seasonal allergies [J30.2] 11/26/2020 Blood infection [B99.9] 01/24/2022 Bilateral leg edema [R60.0] 05/03/2022 Chronic kidney disease, stage 3b (HCC) [N18.32] 12/01/2022 Acute deep vein thrombosis (DVT) of other speci*12/01/2022 Congestive heart failure, unspecified HF chroni*12/01/2022 Angina at rest (HCC) [I20.89] 12/01/2022 Obesity, Class I, BMI 30-34.9 [E66.9] 12/01/2022 Systolic murmur [R01.1] 12/26/2022 Platelets decreased (HCC) [D69.6] 12/26/2022 Depression [F32.A] 12/11/2023 Encounter Status:Closed by GOGO BARBOSA on 02/15/24 [facility] 02-15-2024 Note Patient Outreach (AG ACM) MKIEL WINSTON ([id number]) 1945 F Date Time Provider Department 02/15/24 [facility]ADO [facility] During your visit today, we recorded the following information about you: Latonya Rosado, RN 02/15/2024 11:45 AM Signed TRANSITIONAL CARE MANAGEMENT (TCM) COMMUNITY MONITORING PROGRAM - [place] Provider Action/FYI: TCM appointment 02/27/24 Started on . Request for prescription sent to PCP. SUMMARY: Pt discharged from [facility] on 02/13/24. Admitted for: Cellulitis Patient seen Inpatient THUAN Visit? N/A. Patient seen ICARE Program? No. Contact made with patient: Yes Hi my name is Latonya Rosado, JANES and I am calling from the [facility] on behalf of your PCP, Komal Cohn, DO I understand you were recently in the hospital so I am calling to check in with you to ensure you are feeling well now that you?re home. Do you mind if I ask you a few questions related to your hospital stay and well-being Yes Contact with patient post discharge, spoke to patient. Patient identified by name and . Do you feel your health is BETTER, WORSE, or the SAME since leaving the hospital? Better ACTION TAKEN: Patient indicated symptoms are better or same, no action required. Continue outreach. N/A MEDICATIONS: Many patients have questions or concerns about their medications once they are home. Do you have any questions about taking your medications or which medication you should be on? No Do you need any medication refills at this time, including any of the medications you might take only when needed? Yes ACTION TAKEN: Patient needs refill(s) - Routed to PCP, indicated the medications and preferred pharmacy in the FYI box. For RNs or Pharmacy completing outreach ONLY, was a medication review completed? Yes, Meds from [facility]. SOCIAL: We would like to make sure you have what you need so that your basics needs are met - including your personal safety. HEALTH LEADS SCREENING TOOL QUESTIONS: Do you often feel you lack companionship? No Do you ever need help reading or understanding hospital materials? No In the last 12 months, have you changed how you take medications to save money? No In the past 12 months, has lack of transportation kept you from medical appointments, work or getting things you need like food, or supplies? No In the last 12 months, did you ever eat less than you felt you should because there wasn't enough money for food? No During the winter, do you anticipate having a problem paying your heating bill? No In the next 2 months, are you worried you might not have stable housing? No Would you like to speak with a social work steam plant operator to help give you support for any of these needs? No It can be normal to feel anxious or down during a time like this. Would you like to talk to a mental health professional about how you have been feeling? No ACTION TAKEN: No action taken DISCHARGE INTRUCTIONS: Your discharge instructions / After Visit Summary (AVS) are important in guiding you through the recovery process. Do you have any questions related to your discharge instructions? No Do you have all the necessary equipment and supplies at home? Yes ACTION TAKEN: No action required WRAP AROUND SERVICES: N/A Patient educated on importance of primary care provider follow up visit as well as specialty provider follow up visits as indicated. Inform the patient that if they have any questions or concerns prior to that appointment, to call their Primary Care Provider 's office right away. Primary care provider first education provided. I would like to help you schedule a hospital follow-up virtual or telephone visit with your PCP. ACTION TAKEN: TCM Primary Care Provider Visit Scheduled: Yes - Appt date: 02/27/[address] Cohn Your doctor would like us to remind you of the recommendations regarding the coronavirus (Covid19) outbreak: Avoid public places as much as possible. Avoid close contact (within 6 feet) with others you don't live with, especially if they are sick. Stay home if you are sick. Wash your hands regularly for at least 20 seconds with soap and water. Wear a cloth mask in public places to help reduce community spread. Do not go to your Doctor's office unless instructed to do so. For any non-emergency symptoms, call your Doctor's office to get instructions on how to manage (we might recommend a telephone or virtual visit). For emergency symptoms, proceed to Emergency Department as usual but inform them of cough and fever symptoms RODOLFO if present (or call on the way if possible). Allergies As of Date: 02/15/2024 Noted Allergy Reaction CODEINE 02/24/2016 4 - Hives 2 - Rash CODEINE SULFATE 06/13/2018 16 - Unknown Date Reviewed: 01/06/2024 Reviewed by: Arnel Govea LPN - Fully Assessed Re (more content not included)... [facility] 02-08-2024 Note HNO ID: [id number] Author: SUE CLAUDIO RN Service: ? Author Type: Registered Nurse Type: Progress Notes Filed: 02/08/2024 10:51 Note Text: TRANSITION CARE MANAGEMENT (TCM) DISCHARGE TO POST ACUTE FACILITY POST ACUTE TRANSFER SUMMARY: -Pt discharged from [facility] on 02/02/24. -Post Acute Facility Admitted to SNF. Discharging to Facility/ Agency Name: [facility] Address:[address] [place] [address] [address] [place] [address] -Admitted for: LLE Cellulitis Cystitis [facility] 02-08-2024 History of Present illness Narrative TRANSITION CARE MANAGEMENT (TCM) DISCHARGE TO POST ACUTE FACILITY POST ACUTE TRANSFER SUMMARY: -Pt discharged from [facility] on 02/02/24. -Post Acute Facility Admitted to SNF. Discharging to Facility/ Agency Name: [facility] Address:[place] [address] [place] [address] -Admitted for: LLE Cellulitis Cystitis documented in this encounter [facility] 02-08-2024 Note Patient Outreach (AG ACM) MIKEL WINSTON ([id number]) 1945 F Date Time Provider Department 02/08/24 SUE CLAUDIO [facility] During your visit today, we recorded the following information about you: Sue Claudio RN 02/08/2024 10:51 AM Signed TRANSITION CARE MANAGEMENT (TCM) DISCHARGE TO POST ACUTE FACILITY POST ACUTE TRANSFER SUMMARY: -Pt discharged from [facility] on 02/02/24. -Post Acute Facility Admitted to SNF. Discharging to Facility/ Agency Name: [facility] Address:[place] [address] [place] [address] -Admitted for: LLE Cellulitis Cystitis Allergies As of Date: 02/08/2024 Noted Allergy Reaction CODEINE 02/24/2016 4 - Hives 2 - Rash CODEINE SULFATE 06/13/2018 16 - Unknown Date Reviewed: 01/06/2024 Reviewed by: Arnel Govea LPN - Fully Assessed Reason for Visit: Transition Of Care [4074] Cmt: Tarana D/C to [facility] 02/02/24 Prescriptions as of 02/08/2024 - atenolol (TENORMIN) 50 mg tablet Take 1 tablet by mouth once daily. - Cyanocobalamin 1,000 mcg TbER Take 1 tablet by mouth once daily. - ferrous sulfate 325 mg (65 mg iron) tablet Take 1 tablet by mouth every afternoon. - fluticasone (FLONASE) 50 mcg/actuation nasal spray Use 2 Sprays in each nostril once daily. - losartan (COZAAR) 25 mg tablet Take 1 tablet by mouth every afternoon. - metFORMIN (GLUCOPHAGE) 500 mg tablet Take 1 tablet by mouth two times a day with meals. - mirabegron (MYRBETRIQ) 25 mg Tb24 Take 1 tablet by mouth once daily. - nystatin (MYCOSTATIN) powder Apply 1 application to affected area three times a day. APPLY TO AFFECTED AREA - omeprazole (PRILOSEC) 40 mg capsule Take 1 capsule by mouth every afternoon. - rosuvastatin (CRESTOR) 20 mg tablet Take 1 tablet by mouth once daily. - citalopram (CELEXA) 20 mg tablet Take 0.5 tablets by mouth once daily for 7 days, THEN 1 tablet once daily. - VITAMIN B-12 1,000 mcg tab take 1 tablet by mouth every day - levothyroxine (SYNTHROID) 50 mcg tablet take 1 tablet by mouth every day - potassium chloride SR (MICRO-K) 10 mEq CR capsule TAKE 1 CAPSULE BY MOUTH EVERY DAY NEEDED WITH LASIX - Blood-Glucose Meter Use to test blood sugar - blood sugar diagnostic (BLOOD GLUCOSE TEST) test strip Use to test blood sugar BID - Lancets lancets Use to test blood sugar BID - benzonatate (TESSALON PERLE) 100 mg capsule - ACCU-CHEK KENROY PLUS TEST STRP test strip 1 STRIP TWICE DAILY. USE TO TEST BLOOD SUGAR TWICE A DAY - MULTIVITAMIN ORAL Take by mouth. - cholecalciferol, vitamin D3, (VITAMIN D3 ORAL) Take by mouth. - aspirin 81 mg chewable tablet Take 81 mg by mouth. - Vitamin E, dl, acetate, (VITAMIN E) 400 unit capsule Take 800 Units by mouth. Problem List As Of Date 02/08/2024 Noted Resolved Hypertension [I10] Hyperlipidemia, mixed [E78.2] 08/28/2020 Diabetes (HCC) [E11.9] 08/28/2020 Generalized edema [R60.1] 08/28/2020 Hypothyroidism, acquired [E03.9] 08/28/2020 History of DVT (deep vein thrombosis) [Z86.718] 08/28/2020 Nocturnal hypoxia [G47.34] 08/28/2020 Seasonal allergies [J30.2] 11/26/2020 Blood infection [B99.9] 01/24/2022 Bilateral leg edema [R60.0] 05/03/2022 Chronic kidney disease, stage 3b (HCC) [N18.32] 12/01/2022 Acute deep vein thrombosis (DVT) of other speci*12/01/2022 Congestive heart failure, unspecified HF chroni*12/01/2022 Angina at rest (HCC) [I20.89] 12/01/2022 Obesity, Class I, BMI 30-34.9 [E66.9] 12/01/2022 Systolic murmur [R01.1] 12/26/2022 Platelets decreased (HCC) [D69.6] 12/26/2022 Depression [F32.A] 12/11/2023 Encounter Status:Closed by SUE CLAUDIO on 02/08/24 [facility] 02-02-2024 Nurse Note Report called to Mark at [facility]. [facility] 02-02-2024 Nurse Note Report called to Mark at [facility]. 01/29/24 2350, Pt having SOB expiratory wheezing,I gave her a PRN P.O LASIX,Dr Morillo notified,he put an order for breathing treatment an chest x-ray. documented in this encounter [facility] 02-02-2024 Miscellaneous Notes Patient Choice Patient Name: MIKEL WINSTON Date of : 1945 All Providers Sent Referral Name: [facility] Phone: [phone] Address: [address] [place] [address] S/W, Transport Transport set via Roundtrip Cot at 230p to [facility]. Facility notified via [employer] of time. ferryboat deckhand provided report number. I did visit patient in her room to notify. Message Left for daughter Arnel as well. Messaged PREDICTIVE MAINTENANCE TECHNICIAN to send dc packet to [facility]. . Discharge med list transmitted to [facility] via [facility] per TCC request. 7000 previously completed in [facility]. Facility is aware Images from the original note were not included. Care Management Progress Note Anticipate discharge to [facility] today.. . Discharge Milestones and Delays Expected date/time: 02/01/2024 Anticipated medical readiness: 02/01/2024 Expected discharge disposition: Jail Facility Discharge Milestones Place discharge order Complete med reconciliation Case mgmt discharge readiness Clinical Stability Diagnostic Workup Facility Choice Selection Patient Education Complete Expected Discharge History Expected Date/Time Set By Reviewed At 02/01/2024 Jade Russell RN 02/01/2024 9:25 AM tcc est 02/02/2024 Jade Russell RN 01/31/2024 9:12 AM 02/02/2024 Jade Russell RN 01/31/2024 9:12 AM 02/01/2024 Jade Russell RN 01/30/2024 9:00 AM 01/31/2024 GARCIA Hallman CNP 01/28/2024 7:46 PM 01/31/2024 GARCIA Hallman CNP 01/28/2024 7:06 PM Length of Stay (Days): 5 GMLOS: 3.9 Did update patient that plan was to discharge to [facility] probably tomorrow. . 7000 was entered into [facility] for the [facility] per [facility] request. Facility is aware. Tasked [facility] to complete 7000. Updated [facility] via careport that per attending, anticipate dc tomorrow. Per [facility] auth is good through 02/05. . SDOH completed at bedside with patient. Patient reports no transportation issues. Reports having some concerns about her diet changes with salt and is worried about what she can and can't have at home. Reports being able to grocery shop and prepare her own meals but is not sure what she can eat now that there have been some changes. Explained that patient can talk with RN, hospitalist, and hospital probate clerk if needing more clarification on this. Epic chat sent to probate clerk. No other SW needs noted. Discharge plan is SNF. HCL to sign off. Please re-consult if needed. [facility] is able to accept. Did request that they submit for insurance auth. . [facility] request. Await review and response regarding ability to accept. [facility] notified. Spoke with patient. She is in agreement with snf referral. Did provide with SNF list. Referral placed to [facility] per her request .. Images from the original note were not included. Care Management Progress Note Therapy did evaluate and recommended snf level of care . SNF list printed and will discuss with patient. Continues to require oxygen at 2 liters with 97% saturation. Continues to spike intermittent temps. Remains on iv antibiotics and started on aerosols yesterday. Discharge plan is home with c vs snf when medically stable. . Discharge Milestones and Delays Expected date/time: 02/01/2024 Expected discharge disposition: Home Health Services Discharge Milestones Place discharge order Complete med reconciliation Case mgmt discharge readiness Clinical Stability Diagnostic Workup [employer] Sales Representative Recommendations Facility Choice Selection Test Results PT discharge readiness OT discharge readiness INTERNET RETAILER discharge readiness Patient Education Complete Expected Discharge History Expected Date/Time Set By Reviewed At 02/01/2024 Jade Russell RN 01/30/2024 9:00 AM tcc est 01/31/2024 GARCIA Hallman CNP 01/28/2024 7:46 PM 01/31/2024 GARCIA Hallman CNP 01/28/2024 7:06 PM Length of Stay (Days): 3 GMLOS: 3.9 The patient is Unstable - High likelihood or risk of patient condition declining or worsening The patient's goals for the shift include rest The clinical goals for the shift include safety,breath easy. Over the shift, the patient did not make progress toward the following goals. Barriers to progression include disease progress. Recommendations to continue with current care. Continuing to await therapy evals and recommendations. Legal Research Analyst following case for Discharge Needs. Images from the original note were not included. Care Management Progress Note US of lower ext pending for this morning. Urine culture pending. Remains on iv antibiotics. Pt/ot ordered and pending. Discharge plan is pending therapy evals and recommendations, wound care and antibiotic needs. Tentative discharge plan is home with [facility] when medically stable.. Discharge Milestones and Delays Expected date/time: 01/31/2024 Expected discharge disposition: Home or Self Care Discharge Milestones Place discharge order Complete med reconciliation Case mgmt discharge readiness Clinical Stability Diagnostic Workup Le[employer] Sales Representative Recommendations Facility Choice Selection Test Results PT discharge readiness OT discharge readiness INTERNET RETAILER discharge readiness Patient Education Complete Expected Discharge History Expected Date/Time Set By Reviewed At 01/31/2024 GARCIA Hallman CNP 01/28/2024 7:46 PM 01/31/2024 GARCIA Hallman CNP 01/28/2024 7:06 PM Length of Stay (Days): 2 GMLOS: No GMLOS Documented The patient is Moderately Unstable - Medium risk of patient condition declining or worsening The patient's goals for the shift include rest The clinical goals for the shift include safety Over the shift, the patient did demonstrate knowledge on the diagnosis and the treatment.She remains free from falls. The patient is Moderately Unstable - Medium risk of patient condition declining or worsening The patient's goals for the shift include rest The clinical goals for the shift include safety Over the shift, the patient did demonstrated knowledge on care and prognosis. Care Managment Initial Assessment Date: 01/29/2024 Patient Name: Mikel Winston : 1945 Patient Information Source of Information: Patient Cognition/Language: WFL - Within Functional Limits Permission given to speak with patient community relations representative/caregiver as indicated: Confirmation of Payer with patient/family: Yes Payer Name: [employer] Medicare / [facility] : No Confirmation of Primary Care Physician: Confirmed PCP Name: Lalit Sawant Seen in last 2 years?: Yes Primary Caregiver: Self If assistance needed, confirmed caregiver ready, willing and able to care for patient at discharge: Yes Confirmed with: Per patient, her children are ready, willing, and able to assist when needed. Living Arrangements Current Residence: Apartment Number of Floors 1 Number of Entry Steps: (level) Bed/Bath Levels: Both first floor Facility: Facility Name: Plan to Return: Yes Lives with: Alone Support Systems: Children, Family members Activities of Daily Living Ambulation: Assistance (walker) Bathing/Dressing: Independent Elimination/Continence/Toileting: Independent Feeding: Independent Who Assists with Activities of Daily Living: Instrumental Activities of Daily Living Prescription Coverage: Yes Pharmacy Used: [facility] Medication Management: Independent Transportation/Shopping: Assistance Provider Transportation/Shopping Assistance Provider Name: Children Transportation Mode: Car Needs Assistance with Transportation at Discharge: No Meal Preparation: Independent Laundry/Cleaning: Independent Finances/Bill Paying: Independent Communication: Independent Types of Care Services/Equipment Utilized Care Services: (n/a) Dialysis Type: NA Durable Medical Equipment: Cane, Walker, Shower Seat, Glucometer Patient's Goal/Discharge Plan Patient expects to be discharged to: Home Discharge Planning Actions: Continue to follow, No needs identified Patient's Choice Rights and [employer] and Collaborative Relationships Disclosed as Indicated for Post-Acute Care: Interdisciplinary Team Engagement: Social Work Referral for: Additional Information: Assessment information taken from both patient conversation and EPIC chart review. Spoke to patient at bedside. Introduced self and role. Reason for admission: presents with altered mental status - daughter states she has hx of UTIs and has had confusion like this with those in the past. She was found to have a urinary tract infection the patient was given Rocephin and vancomycin. Also found to have increasing redness in right leg determined to be cellulitis. Consults: Nephro PT/OT: pending - pt with pending BLE duplex. Will await results and potential anticoagulation needs prior to initiation of therapy. Current DCP: TBD - pending therapy evals Rapid Rounding updated. Discharge planning needs discussed. Patient denied any needs. Patient verbalizes understanding and is in agreement with POC. States family is ready, willing, and able to assist as needed. TCC will continue to follow. Jalen Pham RN documented in this encounter [facility] 02-02-2024 Note Formatting of this n ote might be different from the original. Patient Choice Patient Name: MIKEL WINSTON Date of : 1945 All Providers Sent Referral Name: [facility] Phone: [phone] Address: [address] [place] [address] [facility] 02-02-2024 Note Formatting of this n ote might be different from the original. Patient Choice Patient Name: MIKEL WINSTON Date of : 1945 All Providers Sent Referral Name: [facility] Phone: [phone] Address: [address] [place] [address] [facility] 02-02-2024 Note Formatting of this n ote might be different from the original. S/W, Transport Transport set via Roundtrip Cot at 230p to [facility]. Facility notified via [employer] of time. ferryboat deckhand provided report number. I did visit patient in her room to notify. Message Left for neymar Mortensen as well. [facility] 02-02-2024 Note Formatting of this n ote might be different from the original. S/W, Transport Transport set via Roundtrip Cot at 230p to [facility]. Facility notified via [employer] of time. ferryboat deckhand provided report number. I did visit patient in her room to notify. Message Left for neymar Mortensen as well. [facility] 02-02-2024 History of Present illness Narrative Images from the original note were not included. OCCUPATIONAL THERAPY [facility] Treatment Note Name/MRN: Mikel Winston ([id number]) Date of : 1945 Age: 78 y.o. Room/Bed: [facility]458/B4[facility] B Visit #: 2 out of 8 visits Discharge Recommendation: Jail Facility Equipment Needed: No Prior Level of Function ADL Assistance: Independent Ambulation Assistance: Independent Device(s) used: front wheeled walker Transfer Assistance: Independent Assessment Pt tolerated session well and is making progress with OT POC. She completed LE dressing and toileting tasks with Mod A, STS and functional mobility with CGA, and toilet transfer and standing balance with Min A. She performed grooming tasks standing at sink level for approx 5 min with CGA-Min A, with heavy reliance on counter for stability. Pt is limited by impaired strength, balance, and endurance. She would benefit from continued skilled OT services in order to improve strength and functional activity tolerance necessary for occupational performance. OT rec is SNF upon planned discharge. Subjective Pt seated in recliner chair upon arrival, pleasant and agreeable. Per RN, pt okay to see. Pain: 0-10 pain scale: 6/10 Location: Lower back Medical Precautions: No active isolations Proper PPE donned/doffed in accordance with facility standards. Fall Risk: Jaramillo Fall Risk Score: 50 (High Risk) Precautions/Restrictions: N/A Family/Caregiver Present: none Objective ADLs Grooming: Contact Guard, after setup UE Dressing: SBA LE Dressing: Mod Assist Toileting: Mod Assist Pt completed grooming tasks at sink level with CGA after set up, pt with increased fatigue and pain but able to tolerate approx 5 min of standing activity before requiring seated rest period. UE dressing completed with SBA to doff/kathy gown. LE dressing performed with Mod A, pt required assist to doff brief and initiated threading BLEs with mild difficulty. She required assist to thread BLEs into brief. Pt able to manage over hips in standing with increased time, she required assist for stability/balance while performing clothing mgmt. Pt performed toileting tasks with Mod A, she completed standing pericare but required assist for thoroughness. She also required assist for clothing mgmt, increased reliance on FWW for stability and only able to take one UE off FWW at a time. Bed Mobility Pt seated in recliner chair pre/post session. Transfers/Mobility Sit to stand: Contact Guard Stand to sit: Contact Guard Toilet: Min Assist Standing balance: Contact Guard, Min Assist Functional mobility: Contact Guard Pt performed STS to/from recliner chair to FWW with CGA, good hand placement for push up from/reach back to seated surface. Increased time to rise/descend. Min A for transfer to/from standard toilet with use of R side grab bar, assist for controlled descent/elevation. Pt completed standing balance at FWW/sink with CGA-Min A, pt with heavy reliance on counter for stability. She tolerated standing for approx 5 min before requiring seated rest period. Pt overall CGA but required Min A for short bouts throughout d/t impaired balance, pt able to correct after instability and return to CGA. CGA for functional mobility at FWW, she tolerated short distances within room to bathroom. Good device mgmt noted. Device(s) used: front wheeled walker and oxygen Cognition Exceptions - Problem solving: assistance required to generate solutions, assistance required to implement solutions, assistance required to identify errors made, assistance required to correct errors made, and decreased awareness of errors - Sequencing: requires cues for some Plan Continue acute OT per plan of care. Safety/Education Safety Safety Devices in place: All fall risk precautions in place, call light within reach, left in chair, gait belt, patient at risk for falls, nurse notified, and no alarms engaged upon entry Restraints: No Education Education Given To: patient Education Provided: OT Role, Plan of Care, ADL Adaptive Strategies, Transfer Training, Energy Conservation, Fall Prevention Education, Discharge Recommendations, Benefits of Increasing Activity, and Breathing Techniques Education Method: Verbal, Demonstration, and Teach Back Barriers to Learning: None Education Outcome: Verbalized Understanding, Demonstrated Understanding, and Continued Education Needed AM-PAC AM-PAC Inpatient Daily Activity Raw Score: 17 ADL Inpatient CMS G-Code Modifier: CK Goals Patient Stated Goal: to get stronger Encounter Problems Encounter Problems (Active) Balance Patient will maintain dynamic standing balance for 3 minutes with modified independence in order to demonstrate decreased risk of falling. (Progressing) Start: 01/30/24 Expected End: 02/05/24 Dressings Lower Extremities Patient will perform LB ADLs with Mod I (Progressing) Start: 01/30/24 Expected End: 02/05/24 Mobility pt will perform functional mobility and transfers with FWW and mod I (Progressing) Start: 01/30/24 Expected End: 02/05/24 Toileting Patient will complete toileting tasks at standard toilet with modified independence. (Progressing) Start: 01/30/24 Expected End: 02/05/24 Transfers Patient will perform bed mobility with modified independence in order to improve independence and prepare for out of bed mobility. (Not Addressed) Start: 01/30/24 Expected End: 02/05/24 Therapy Time Individual Co-treatment Time In 0856 Time Out 0944 Minutes 48 Timed Code Treatment Minutes: 48 Minutes (2 ADL, 1 THER ACT) ROMEO Hopkins Images from the original note were not included. PHYSICAL THERAPY [facility] Treatment Note Name/MRN: Mikel Winston ([id number]) Date of : 1945 Age: 78 y.o. Room[facility]Bed: [facility] B Visit #: 2 out of 5 visits Discharge Recommendation: Jail Facility Equipment Needed: No (pt reports having own FWW) Prior Level of Function ADL Assistance: Independent Ambulation Assistance: Independent Device(s) used: front wheeled walker Transfer Assistance: Independent Assessment Pt demos continued improvement in functional mobility and progress toward therapy goals. Pt requires min A to CGA for functional transfers, CGA for short distance ambulation with FWW. Pt demos improvement in FWW management from previous session. Pt is limited by endurance, fatigue and will continue to benefit from acute skilled PT to address current deficits. SNF recommendation remains appropriate. Subjective Pt pleasant and agreeable to therapy session Pain: pt reports back pain, does not rate Medical Precautions: No active isolations Proper PPE donned/doffed in accordance with facility standards. Fall Risk: Jaramillo Fall Risk Score: 50 (High Risk) Precautions/Restrictions: N/A Overall Cognitive Status: WFL Overall Orientation Status: Oriented x4 Family/Caregiver Present: none Objective Transfers/Mobility Sit to stand: Contact Guard, Min Assist Stand to sit: Contact Guard, Min Assist Pt completes sit->stand from recliner to FWW requiring cues for hand placement at CGA. Pt completes stand->sit requiring min A x1 to control descent to toilet and min A x1 to elevate from toilet with use of grab bar. Pt returns to sitting in recliner requiring CGA with good carryover of safe hand placement. Device(s) used: front wheeled walker Ambulation Ambulation 1 Assistive device(s) used: front wheeled walker Assist level: Contact Guard Distance (ft): ~25 feet x2 Quality of gait: reciprocal stepping, shuffling, slow elba Pt demos short, shuffling gait, decreased gait speed. Pt requires initial cues for upright posture, maintain LEILANI within FWW with fair carryover of cues noted. Pt demos improvement FWW management from previous session, however, with fatigue, pt demos increased forward flexed posture. CGA provided to monitor safety and stability without LOB. Increased time to complete short distance ambulation. Balance: Pt requires CGA to min A for dynamic standing balance for pericare and hand hygiene. Pt demos retro lean requiring cues for anterior weightshift to midline for safety. Plan Continue acute PT per plan of care. Safety/Education Safety Safety Devices in place: All fall risk precautions in place, call light within reach, left in chair, gait belt, patient at risk for falls, and nurse notified Restraints: N/A Education Education Given To: patient Education Provided: PT Role, PT Goals, Gait Training, Plan of Care, Transfer Training, Energy Conservation, Equipment, Fall Prevention Education, Discharge Recommendations, and Benefits of Increasing Activity Education Method: Verbal and Demonstration Barriers to Learning: None Education Outcome: Verbalized Understanding, Demonstrated Understanding, and Continued Education Needed Outcome Measures AM-PAC AM-PAC Inpatient Mobility Raw Score (No Stairs) : 15 Goals Patient Stated Goal: to go to rehab Encounter Problems Encounter Problems (Active) Exercise Patient will complete lower extremity exercises for 1-2 sets / 5-10 reps in order to improve strength and activity tolerance for mobility. (Not Addressed) Start: 01/30/24 Expected End: 02/06/24 Mobility Patient will ambulate 100 feet with SBA and rolling walker in order to improve safety and independence with mobility. (Progressing) Start: 01/30/24 Expected End: 02/06/24 Transfers Patient will perform bed mobility with modified independence in order to improve independence and prepare for out of bed mobility. (Not Addressed) Start: 01/30/24 Expected End: 02/06/24 Patient will complete functional transfer with rolling walker with SBA in order to prepare for ambulation. (Progressing) Start: 01/30/24 Expected End: 02/06/24 Therapy Time Individual Co-treatment Time In 1333 Time Out 1405 Minutes 32 Timed Code Treatment Minutes: 23 Minutes (gait x1, ther act x1) Sadia Navarro PT Hospitalist Progress Note 02/01/2024 Subjective: Admit Date: 01/28/2024 PCP: KOMAL COHN DO Room#: B4-458/B4-458 B BRIEF HOSPITAL COURSE: Admitted for UTI and cellulitis RLE Interval History: Feeling better. Has back pain . Continue with ceftriaxone - last dose today Has some leg edema - will discuss with nephrology about diuretics Plan to DC to rehab in am Adult diet Regular; 3 carb choices (45 gm/meal) 24HR INTAKE/OUTPUT: No intake or output data in the 24 hours ending 02/01/24 1136 Past Medical History: Past Medical History: Diagnosis Date CAD (coronary artery disease) Cirrhosis of liver (HCC) Diabetes mellitus (HCC) Hypertension Osteoporosis Thyroid disease LABS: CBC: Recent Labs 01/30/24 0042 01/31/2452302/01/24 0258 WBC 6.2 8.8 6.4 RBC 3.17* 2.94* 3.06* HGB 10.1* 9.5* 9.8* HCT 31.6* 28.7* 30.2* MCV 99.7* 97.6 98.7 RDW 13.9 13.7 13.5 PLT 81* 83* 90* BMP: Recent Labs 01/30/24 0042 01/31/24 0524 02/01/24 0258 NA 138 136 135 K 3.7 3.2* 3.8 CL 111* 105 104 CO2 21* 23 22 BUN 30* 26* 34* CREATININE 1.58* 1.62* 1.69* GLUCOSE 148* 141* 107* CALCIUM 8.8 8.7 8.4 ANIONGAP 7 8 8 LIVER PROFILE: Recent Labs 01/30/24 0042 01/31/24 0524 02/01/24 0258 AST 40 32 36 ALT 23 19 21 BILITOT 1.0 1.3 1.0 ALKPHOS 79 52 95 PROT 6.4 5.8* 6.0* PT/INR: No results for input(s): PROTIME, INR in the last 72 hours. CARDIAC ENZYMES: No results for input(s): TROPONINI in the last 72 hours. Procalcitonin: No results found for: PROCAL COVID-19 PCR: No results for input(s): COVID19 in the last 72 hours. Objective: Vitals: BP (!) 113/49 (BP Location: Right arm, Patient Position: Lying) Pulse 59 Temp 36.2 C (97.1 F) (Temporal) Resp 16 Ht 5' 6 (1.676 m) Wt 204 lb 12.9 oz (92.9 kg) SpO2 99% BMI 33.06 kg/m Pulse Ox: SpO2 Av.5 % Min: 99 % Max: 100 % Supplemental O2: O2 Flow Rate (L/min): 2 L/min Physical Exam Constitutional: Appearance: Normal appearance. Cardiovascular: Rate and Rhythm: Normal rate and regular rhythm. Heart sounds: Normal heart sounds. Pulmonary: Effort: Pulmonary effort is normal. Breath sounds: Normal breath sounds. Abdominal: General: Bowel sounds are normal. Palpations: Abdomen is soft. Musculoskeletal: Right lower leg: Edema present. Left lower leg: Edema present. Comments: Erythema right leg Neurological: General: No focal deficit present. Mental Status: She is alert. Medications: Scheduled PRN aspirin, 81 mg, Oral, Daily atenolol, 50 mg, Oral, Daily cefTRIAXone, 1,000 mg, IntraVENous, q24h cholecalciferol, 5,000 Units, Oral, Daily enoxaparin, 40 mg, SubCUTAneous, Daily ferrous sulfate, 325 mg, Oral, Daily with breakfast furosemide, 20 mg, Oral, Daily insulin lispro, 0-12 Units, SubCUTAneous, TID WC And insulin lispro, 0-12 Units, SubCUTAneous, Nightly levothyroxine, 25 mcg, Oral, qAM AC linezolid, 600 mg, Oral, q12h [Held by provider] losartan, 25 mg, Oral, Daily magnesium gluconate, 500 mg, Oral, Daily [Held by provider] metFORMIN, 500 mg, Oral, BID WC [Held by provider] mirabegron ER, 25 mg, Oral, Nightly pantoprazole, 40 mg, Oral, qAM AC [Held by provider] potassium chloride CR, 10 mEq, Oral, Daily rosuvastatin, 20 mg, Oral, Daily vitamin E, 400 Units, Oral, Daily PRN medications: acetaminophen OR acetaminophen, albuterol, dextrose, dextrose, glucagon (rDNA), glucose, ondansetron ODT OR ondansetron, polyethylene glycol (PEG) 3350 Continuous Assessment Data: (CAT1) Reviewed 1 notes from different specialty or health system (each=1). (LOW: 2x CAT1 or independent historian MOD: 3x CAT1 or 1x CAT3 EXTENSIVE: 3x CAT1 and 1x CAT3) Acute, acute on chronic, unstable/uncontrolled chronic problems/diagnoses: Acute metabolic encephalopathy, resolved- 2/2 UTI E coli UTI - sensitive - on ceftriaxone Right LE cellulitis- on zyvox [id number] gap metabolic acidosis BARRY on CKD stage 3- nephrology following DM type 2 with hyperglycemia Diabetic nephropathy Mild thrombocytopenia HTN>>Hold losartan in setting of BARRY Hypokalemia/hypomagnesemia - replace Mild anemia - stable Stable chronic problems affecting care, new non-acute diagnoses: Plan As a result of the above findings & factors, the following mgmt was pursued: - continue ceftriaxone - last dose today. - creatinine stable, will discuss with nephrology about starting on scheduled diuresis/as needed diuresis. - DC rehab in am - - am labs, replace lytes prn - PT/OT/CM/SW - delirium precautions: increase activity - DVT prophylaxis: enoxaparin and encourage ambulation Advance Directive: DNR-CCA Anticipated Discharge Extended Emergency Contact Information Primary Emergency Contact: Arnel Forte Mobile Relation: Child Secondary Emergency Contact: Russell Winston Mobile Relation: Child Terence Gonzalez MD Division of Hospitalist Medicine [facility] Progress Note Subjective/ 78 y.o. year old female who we are seeing in consultation for BARRY. KERRI Resting in chair at bedside Feels fair, still foggy+ BP is overall stable Appetite fair C/o back pain No issues with UOP No other new issues at this time ROS done and negative unless mentioned as above No change in PFSH All data labs/interval notes and overnight issues are reviewed Objective/ Vitals: 01/30/24202101/31/24 0726 01/31/24200202/01/24 0753 BP: 142/64 117/51 113/52 (!) 113/49 BP Location: Left arm Right arm Left arm Right arm Patient Position: Lying Lying Lying Lying Pulse: 82 67 57 59 Resp: 16 16 16 16 Temp: 36.6 C (97.9 F) 36.2 C (97.1 F) 36.6 C (97.8 F) 36.2 C (97.1 F) TempSrc: Temporal Temporal Temporal Temporal SpO2: 98% 97% 100% 99% Weight: Height: Intake/Output Summary (Last 24 hours) at 02/01/2024 1028 Last data filed at 01/31/2024 1054 Gross per 24 hour Intake -- Output 700 ml Net -700 ml aspirin, 81 mg, Oral, Daily atenolol, 50 mg, Oral, Daily cefTRIAXone, 1,000 mg, IntraVENous, q24h cholecalciferol, 5,000 Units, Oral, Daily enoxaparin, 40 mg, SubCUTAneous, Daily ferrous sulfate, 325 mg, Oral, Daily with breakfast insulin lispro, 0-12 Units, SubCUTAneous, TID WC And insulin lispro, 0-12 Units, SubCUTAneous, Nightly levothyroxine, 25 mcg, Oral, qAM AC linezolid, 600 mg, Oral, q12h [Held by provider] losartan, 25 mg, Oral, Daily magnesium gluconate, 500 mg, Oral, Daily [Held by provider] metFORMIN, 500 mg, Oral, BID WC [Held by provider] mirabegron ER, 25 mg, Oral, Nightly pantoprazole, 40 mg, Oral, qAM AC [Held by provider] potassium chloride CR, 10 mEq, Oral, Daily rosuvastatin, 20 mg, Oral, Daily vitamin E, 400 Units, Oral, Daily PRN medications: acetaminophen OR acetaminophen, albuterol, dextrose, dextrose, furosemide, glucagon (rDNA), glucose, ondansetron ODT OR ondansetron, polyethylene glycol (PEG) 3350 Constitutional: Alert, awake but fatigued, mildly distressed Eyes: No icterus, no pallor HEENT: no pallor/cyanosis or icterus Cardiovascular: S1, S2 without m/r/g Respiratory: diminished throughout, on 2L NC GI: +bs, soft, nt : palmer -ve Ext: 1+ BLE edema Neck: supple, no thyroid enlargement, no JVD elevation Skin: RLE red/warm to touch (improving) Results from last 7 days Lab Units 02/01/24 0258 01/31/24 0524 01/30/24 0042 SODIUM mmol/L 135 136 138 POTASSIUM mmol/L 3.8 3.2* 3.7 CHLORIDE mmol/L 104 105 111* CO2 mmol/L 22 23 21* BUN mg/dL 34* 26* 30* CREATININE mg/dL 1.69* 1.62* 1.58* GLUCOSE mg/dL 107* 141* 148* CALCIUM mg/dL 8.4 8.7 8.8 Results from last 7 days Lab Units 02/01/24 0258 01/31/24 0524 01/30/24 0042 WBC AUTO 10*3/uL 6.4 8.8 6.2 HEMOGLOBIN g/dL 9.8* 9.5* 10.1* HEMATOCRIT % 30.2* 28.7* 31.6* PLATELETS AUTO 10*3/uL 90* 83* 81* Assessment/Plan BARRY/ATN 2/2 suspected volume depletion from poor po intake in the setting of arb/diuresis vs UTI vs AUR (N17.0) CKD3a (N18.31) Hypokalemia (E87.6) 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) RLE cellulitis AMS Plan: -Scr remains at plateau, bl~1.3, non-oliguric, BP overall stable -Will change prn lasix to daily 20 mg -Recheck PVR -Supplement lytes prn, K stable -PVR -ve, c/w holding anti-cholinergic -KELLI -ve for acute process -Avoid nephrotoxins and contrast dye -Dose all meds per current eGFR -Your DM rx -UTI and cellulitis rx per primary, d/w Dr Lisa SUMMERS -Ok for discharge planning from renal standpoint, outpatient BMP ordered and needs close follow up with nephrology in 1 week -We will follow closely with you Thank you for the consult and the opportunity to participate in the care of this patient. Please do not hesitate to contact us with any questions or concerns. Le Dobson APRN, CARDIOVASCULAR DISEASE SPECIALIST [facility] [phone] Associated attestation - Liss Erickson MD - 02/01/2024 1:49 PM EDT I have reviewed the above assessment and plan with the SCIENTIFIC ILLUSTRATOR. I agree with above note. Cr appears to be plateauing. D/w Dr. Gonzalez. Low dose diuresis. Images from the original note were not included. OCCUPATIONAL THERAPY [facility] Treatment Note Name/MRN: Mikel Winston ([id number]) Date of : 1945 Age: 78 y.o. Room[facility]Bed: [facility] B Visit #: 1 out of 8 visits Discharge Recommendation: Jail Facility Equipment Needed: No Prior Level of Function ADL Assistance: Independent Ambulation Assistance: Independent Device(s) used: front wheeled walker Transfer Assistance: Independent Assessment Pt tolerated OT tx fairly well. She was seated in the recliner upon therapist arrival to the room. Pt completed a sit to stand transfer and mobility with CGA. She completed bathroom level toileting with mod A and required max A to don a new brief. CGA for hand hygiene at the sink. Pt remains below baseline and would likely continue to benefit from SNF upon DC. Subjective Pt very pleasant and agreeable to therapy tx Pain: hip and back pain but did not rate Medical Precautions: No active isolations Proper PPE donned/doffed in accordance with facility standards. Fall Risk: Jaramillo Fall Risk Score: 50 (High Risk) Precautions/Restrictions: N/A Family/Caregiver Present: none Objective ADLs Grooming: SBA LE Dressing: Max Assist Toileting: Mod Assist Pt completed bathroom level toileting. She required extended time to void urine and a small BM. She performed pericare and buttock hygiene but required assistance for thoroughness of hygiene. Cues to remember clothing management. She required assistance to doff a soiled brief. Pt attempted to don a new brief with moderate difficulty. She was almost able to thread her R LE into the brief but ultimately required assist for threading B LEs and for managing up over her hips thoroughly. Pt stood at the sink to wash her hands with CGA and one cue for sequencing grabbing the paper towels. Bed Mobility Pt sitting in the recliner pre/post session. Transfers/Mobility Sit to stand: Contact Guard Stand to sit: Contact Guard Toilet: Min Assist Standing balance: Contact Guard Functional mobility: Contact Guard Pt cued for hand placement during transfer. Extended time to complete the transfer. Pt walked to the bathroom with CGA. She completed a toilet transfer with cues to use the R grab bar for safety. Pt stood at the sink for ~ 1.5 minutes with CGA before walking back tot he recliner. No true LOB noted. Pt fatigued after the short distance of mobility. Device(s) used: front wheeled walker Cognition - Following commands: follows one step commands with increased time - Memory: decreased recall of recent events and decreased short term memory - Problem solving: assistance required to generate solutions, assistance required to implement solutions, assistance required to identify errors made, assistance required to correct errors made, and decreased awareness of errors - Sequencing: requires cues for some Plan Continue acute OT per plan of care. Safety/Education Safety Safety Devices in place: All fall risk precautions in place, call light within reach, left in chair, patient at risk for falls, and nurse notified Restraints: N/A Education Education Given To: patient Education Provided: OT Role, Plan of Care, ADL Adaptive Strategies, Transfer Training, Fall Prevention Education, Discharge Recommendations, and Benefits of Increasing Activity Education Method: Verbal, Demonstration, and Teach Back Barriers to Learning: Cognition Education Outcome: Verbalized Understanding and Continued Education Needed AM-PAC AM-PAC Inpatient Daily Activity Raw Score: 17 ADL Inpatient CMS G-Code Modifier: CK Goals Patient Stated Goal: to get stronger Encounter Problems Encounter Problems (Active) Balance Patient will maintain dynamic standing balance for 3 minutes with modified independence in order to demonstrate decreased risk of falling. (Progressing) Start: 01/30/24 Expected End: 02/05/24 Dressings Lower Extremities Patient will perform LB ADLs with Mod I (Slowly Progressing) Start: 01/30/24 Expected End: 02/05/24 Mobility pt will perform functional mobility and transfers with FWW and mod I (Progressing) Start: 01/30/24 Expected End: 02/05/24 Toileting Patient will complete toileting tasks at standard toilet with modified independence. (Progressing) Start: 01/30/24 Expected End: 02/05/24 Transfers Patient will perform bed mobility with modified independence in order to improve independence and prepare for out of bed mobility. (Not Addressed) Start: 01/30/24 Expected End: 02/05/24 Therapy Time Individual Co-treatment Time In 1409 Time Out 1432 Minutes 23 Timed Code Treatment Minutes: 23 Minutes (2 ADLs) Margaret Ross OT [facility] Progress Note Subjective/ 78 y.o. year old female who we are seeing in consultation for BARRY. NAEON Resting in chair at bedside Visitor at bedside too Feels fair, still foggy+ BP is overall stable, some fluctuations+ Appetite fair No issues with UOP No other new issues at this time ROS done and negative unless mentioned as above No change in PFSH All data labs/interval notes and overnight issues are reviewed Objective/ Vitals: 01/30/24 1759 01/30/24 1821 01/30/24202101/31/24 0726 BP: (!) 182/84 142/64 117/51 BP Location: Left arm Right arm Patient Position: Lying Lying Pulse: 86 88 82 67 Resp: (!) 28 18 16 16 Temp: (!) 38.2 C (100.7 F) 36.6 C (97.9 F) 36.2 C (97.1 F) TempSrc: Temporal Temporal Temporal SpO2: (!) 85% 90% 98% 97% Weight: Height: Intake/Output Summary (Last 24 hours) at 01/31/2024 1411 Last data filed at 01/31/2024 1054 Gross per 24 hour Intake -- Output 2300 ml Net -2300 ml aspirin, 81 mg, Oral, Daily atenolol, 50 mg, Oral, Daily cefTRIAXone, 1,000 mg, IntraVENous, q24h cholecalciferol, 5,000 Units, Oral, Daily enoxaparin, 40 mg, SubCUTAneous, Daily ferrous sulfate, 325 mg, Oral, Daily with breakfast insulin lispro, 0-12 Units, SubCUTAneous, TID WC And insulin lispro, 0-12 Units, SubCUTAneous, Nightly levothyroxine, 25 mcg, Oral, qAM AC linezolid, 600 mg, Oral, q12h [Held by provider] losartan, 25 mg, Oral, Daily [Held by provider] metFORMIN, 500 mg, Oral, BID WC [Held by provider] mirabegron ER, 25 mg, Oral, Nightly pantoprazole, 40 mg, Oral, qAM AC [Held by provider] potassium chloride CR, 10 mEq, Oral, Daily rosuvastatin, 20 mg, Oral, Daily vitamin E, 400 Units, Oral, Daily PRN medications: acetaminophen OR acetaminophen, albuterol, dextrose, dextrose, furosemide, glucagon (rDNA), glucose, ondansetron ODT OR ondansetron, polyethylene glycol (PEG) 3350 Constitutional: Alert, awake but fatigued, no apparent distress Eyes: No icterus, no pallor HEENT: no pallor/cyanosis or icterus Cardiovascular: S1, S2 without m/r/g Respiratory: diminished throughout GI: +bs, soft, nt : palmer -ve Ext: trace to 1+ BLE edema Neck: supple, no thyroid enlargement, no JVD elevation Skin: RLE red/warm to touch (improving) Results from last 7 days Lab Units 01/31/24 0501/30/24 0042 01/29/24 0536 SODIUM mmol/L 136 138 140 POTASSIUM mmol/L 3.2* 3.7 3.9 CHLORIDE mmol/L 105 111* 109* CO2 mmol/L 23 21* 22 BUN mg/dL 26* 30* 30* CREATININE mg/dL 1.62* 1.58* 1.68* GLUCOSE mg/dL 141* 148* 128* CALCIUM mg/dL 8.7 8.8 9.6 Results from last 7 days Lab Units 01/31/24 0501/30/24 0042 01/29/24 0536 WBC AUTO 10*3/uL 8.8 6.2 9.0 HEMOGLOBIN g/dL 9.5* 10.1* 10.5* HEMATOCRIT % 28.7* 31.6* 32.5* PLATELETS AUTO 10*3/uL 83* 81* 89* Assessment/Plan BARRY/ATN 2/2 suspected volume depletion from poor po intake in the setting of arb/diuresis vs UTI vs AUR (N17.0) CKD3a (N18.31) Hypokalemia (E87.6) 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) RLE cellulitis AMS Plan: -Scr improving with fluctuations, nearing bl~1.3, non-oliguric, BP overall stable -Ok for some permissive HTN with resolving ATN -C/w holding losartan and lasix for now, should be ok to resume upon discharge -Supplement lytes prn, K replaced today 01/30 -PVR -ve, c/w holding anti-cholinergic until discharge -KELLI -ve for acute process -Avoid nephrotoxins and contrast dye -Dose all meds per current eGFR -Your DM rx -UTI and cellulitis rx per primary -Ok for discharge planning from renal standpoint, outpatient BMP ordered and needs close follow up with nephrology in 1 week -We will follow closely with you Thank you for the consult and the opportunity to participate in the care of this patient. Please do not hesitate to contact us with any questions or concerns. Le Dobson APRN, CARDIOVASCULAR DISEASE SPECIALIST [facility], [facility] [phone] Images from the original note were not included. PHYSICAL THERAPY [facility] Treatment Note Name/MRN: Mikel Winston ([id number]) Date of : 1945 Age: 78 y.o. Room/Bed: E9-388/H7-859 B Visit #: 1 out of 5 visits Discharge Recommendation: Jail Facility Equipment Needed: No (pt reports having own FWW) Prior Level of Function ADL Assistance: Independent Ambulation Assistance: Independent Device(s) used: front wheeled walker Transfer Assistance: Independent Assessment Pt demos progress toward therapy goals. Pt requires SBA for bed mobility, min A x1 for sit<->stand transfers, CGA for stand step transfer EOB to recliner. Pt requires increased time to complete. Pt is currently limited by endurance, fatigue. Pt will benefit from acute skilled PT to address current deficits. Recommendation for SNF remains appropriate. Subjective Pt pleasant and agreeable to therapy session Per RN okay for therapy Pain: Pt denies any current pain. Medical Precautions: No active isolations Proper PPE donned/doffed in accordance with facility standards. Fall Risk: Jaramillo Fall Risk Score: 50 (High Risk) Precautions/Restrictions: N/A Overall Cognitive Status: Exceptions - Problem solving: assistance required to generate solutions, assistance required to implement solutions, assistance required to identify errors made, assistance required to correct errors made, and decreased awareness of errors - Sequencing: requires cues for some Overall Orientation Status: Oriented x4 Family/Caregiver Present: friend Objective Bed Mobility Supine to sit: SBA Pt completes supine->sit requiring SBA with increased time and effort required to complete. Cues required for sequencing with good carryover. HOB elevated and use of bed rails. Transfers/Mobility Sit to stand: Min Assist Stand to sit: Min Assist Stand step: Contact Guard Pt completes sit->stand from EOB to FWW requiring min A x1 to elevate with cues provided for hand placement, anterior weightshift. Increased time to elevate into upright stand. Pt completes stand step transfer from EOB to recliner with FWW requiring CGA with cues for alignment to surface and FWW management. Pt returns to sitting in recliner with min A x1 to assist in controlled descent. Device(s) used: front wheeled walker Plan Continue acute PT per plan of care. Safety/Education Safety Safety Devices in place: All fall risk precautions in place, call light within reach, left in chair, gait belt, patient at risk for falls, nurse notified, and no alarms engaged upon entry Restraints: N/A Education Education Given To: patient Education Provided: PT Role, PT Goals, Plan of Care, Transfer Training, Equipment, Fall Prevention Education, Discharge Recommendations, and Benefits of Increasing Activity Education Method: Verbal and Demonstration Barriers to Learning: None Education Outcome: Verbalized Understanding, Demonstrated Understanding, and Continued Education Needed Outcome Measures AM-PAC AM-PAC Inpatient Mobility Raw Score (No Stairs) : 15 Goals Patient Stated Goal: Pt did not state Encounter Problems Encounter Problems (Active) Exercise Patient will complete lower extremity exercises for 1-2 sets / 5-10 reps in order to improve strength and activity tolerance for mobility. (Not Addressed) Start: 01/30/24 Expected End: 02/06/24 Mobility Patient will ambulate 100 feet with SBA and rolling walker in order to improve safety and independence with mobility. (Progressing) Start: 01/30/24 Expected End: 02/06/24 Transfers Patient will perform bed mobility with modified independence in order to improve independence and prepare for out of bed mobility. (Progressing) Start: 01/30/24 Expected End: 02/06/24 Patient will complete functional transfer with rolling walker with SBA in order to prepare for ambulation. (Progressing) Start: 01/30/24 Expected End: 02/06/24 Therapy Time Individual Co-treatment Time In 1019 Time Out 1036 Minutes 17 Timed Code Treatment Minutes: 15 Minutes (ther act x1) Sadia Navarro PT Hospitalist Progress Note 01/31/2024 Subjective: Admit Date: 01/28/2024 PCP: KOMAL COHN DO Room#: B4-458/B4-458 B BRIEF HOSPITAL COURSE: Admitted for UTI and cellulitis RLE Interval History: Seen and examined. Feeling better. Creatinine stable. E coli - parham sensitive. Adult diet Regular; 3 carb choices (45 gm/meal) 24HR INTAKE/OUTPUT: Intake/Output Summary (Last 24 hours) at 01/31/2024 1027 Last data filed at 01/31/2024 0651 Gross per 24 hour Intake -- Output 1600 ml Net -1600 ml Past Medical History: Past Medical History: Diagnosis Date CAD (coronary artery disease) Cirrhosis of liver (HCC) Diabetes mellitus (HCC) Hypertension Osteoporosis Thyroid disease LABS: CBC: Recent Labs 01/29/2436 01/30/24 0042 01/31/24523 WBC 9.0 6.2 8.8 RBC 3.31* 3.17* 2.94* HGB 10.5* 10.1* 9.5* HCT 32.5* 31.6* 28.7* MCV 98.2 99.7* 97.6 RDW 13.7 13.9 13.7 PLT 89* 81* 83* BMP: Recent Labs 01/29/24 0536 01/30/24 0042 01/31/24523 NA 140 138 136 K 3.9 3.7 3.2* CL 109* 111* 105 CO2 22 21* 23 BUN 30* 30* 26* CREATININE 1.68* 1.58* 1.62* GLUCOSE 128* 148* 141* CALCIUM 9.6 8.8 8.7 ANIONGAP 9 7 8 LIVER PROFILE: Recent Labs 01/29/24 0536 01/30/24 0042 01/31/24 0524 AST 36 40 32 ALT 22 23 19 BILITOT 1.2 1.0 1.3 ALKPHOS 73 79 52 PROT 6.5 6.4 5.8* PT/INR: No results for input(s): PROTIME, INR in the last 72 hours. CARDIAC ENZYMES: Recent Labs 01/28/24 1709 01/28/24 2237 TROPONINI 0.015 0.018 Procalcitonin: Lab Results Component Value Date PROCAL 0.12 (H) 01/29/2024 COVID-19 PCR: No results for input(s): COVID19 in the last 72 hours. Objective: Vitals: BP 117/51 (BP Location: Right arm, Patient Position: Lying) Pulse 67 Temp 36.2 C (97.1 F) (Temporal) Resp 16 Ht 5' 6 (1.676 m) Wt 204 lb 12.9 oz (92.9 kg) SpO2 97% BMI 33.06 kg/m Pulse Ox: SpO2 Av.5 % Min: 85 % Max: 98 % Supplemental O2: O2 Flow Rate (L/min): 2 L/min Physical Exam Constitutional: Appearance: Normal appearance. Cardiovascular: Rate and Rhythm: Normal rate and regular rhythm. Heart sounds: Normal heart sounds. Pulmonary: Effort: Pulmonary effort is normal. Breath sounds: Normal breath sounds. Abdominal: General: Bowel sounds are normal. Palpations: Abdomen is soft. Musculoskeletal: Right lower leg: Edema present. Left lower leg: Edema present. Comments: Erythema right leg Neurological: General: No focal deficit present. Mental Status: She is alert. Medications: Scheduled PRN aspirin, 81 mg, Oral, Daily atenolol, 50 mg, Oral, Daily cefTRIAXone, 1,000 mg, IntraVENous, q24h cholecalciferol, 5,000 Units, Oral, Daily enoxaparin, 40 mg, SubCUTAneous, Daily ferrous sulfate, 325 mg, Oral, Daily with breakfast insulin lispro, 0-12 Units, SubCUTAneous, TID WC And insulin lispro, 0-12 Units, SubCUTAneous, Nightly levothyroxine, 25 mcg, Oral, qAM AC linezolid, 600 mg, Oral, q12h [Held by provider] losartan, 25 mg, Oral, Daily magnesium sulfate, 2,000 mg, IntraVENous, Once [Held by provider] metFORMIN, 500 mg, Oral, BID WC [Held by provider] mirabegron ER, 25 mg, Oral, Nightly pantoprazole, 40 mg, Oral, qAM AC [Held by provider] potassium chloride CR, 10 mEq, Oral, Daily rosuvastatin, 20 mg, Oral, Daily vitamin E, 400 Units, Oral, Daily PRN medications: acetaminophen OR acetaminophen, albuterol, dextrose, dextrose, furosemide, glucagon (rDNA), glucose, ondansetron ODT OR ondansetron, polyethylene glycol (PEG) 3350 Continuous Assessment Data: (CAT1) Reviewed 1 notes from different specialty or health system (each=1). (LOW: 2x CAT1 or independent historian MOD: 3x CAT1 or 1x CAT3 EXTENSIVE: 3x CAT1 and 1x CAT3) Acute, acute on chronic, unstable/uncontrolled chronic problems/diagnoses: Acute metabolic encephalopathy, resolved- 2/2 UTI E coli UTI - sensitive - on ceftriaxone Right LE cellulitis- on zyvox [id number] gap metabolic acidosis BARRY on CKD stage 3- nephrology following DM type 2 with hyperglycemia Diabetic nephropathy Mild thrombocytopenia HTN>>Hold losartan in setting of BARRY Hypokalemia/hypomagnesemia - replace Mild anemia - stable Stable chronic problems affecting care, new non-acute diagnoses: Plan As a result of the above findings & factors, the following mgmt was pursued: - DC vancomycin, continue with zyvox. - continue with ceftriaxone - monitor , mild fevers yesterday - supplement K and magnesium - - am labs, replace lytes prn - PT/OT/CM/SW - delirium precautions: increase activity - DVT prophylaxis: enoxaparin and encourage ambulation Advance Directive: DNR-CCA Anticipated Discharge Extended Emergency Contact Information Primary Emergency Contact: Arnel Forte Mobile Relation: Child Secondary Emergency Contact: Russell Winston Mobile Relation: Child Terence Gonzalez MD Division of Hospitalist Medicine [employer] Images from the original note were not included. PHYSICAL THERAPY [facility] Initial Evaluation Name/MRN: Mikel Winston ([id number]) Evaluation Date: 01/30/2024 Date of : 1945 Admission Date: 01/28/2024 4:25 PM Age: 78 y.o. Room/Bed: B4-458/B4-458 B Discharge Recommendation: Jail Facility Equipment Needed: No (pt reports having own FWW) Assessment IMPRESSION: Pt is a 78 y.o. female admitted 01/27 with AMS and RLE redness. Pt found to have cellulitis, BARRY, UTI and metabolic encephalopathy. Duplex BLE (-). Pt was previously independent with functional mobility with FWW. Pt is currently requiring mod A x1 for bed mobility, min A x1 functional transfers and min A for short distance ambulation with FWW. Pt is currently limited by weakness, cognition, fatigue and is at an increased risk for falls. Pt will benefit from acute skilled PT to address current deficits. Recommend SNF. Diagnosis: admitted 01/27 with AMS and RLE redness. Pt found to have cellulitis, BARRY, UTI and metabolic encephalopathy. Duplex BLE (-). Prognosis: good Performance Deficits /Impairments: Increased Pain, Decreased Functional Mobility, Decreased Strength, Decreased Safety Awareness, Decreased Cognition, Decreased Endurance, and Decreased Balance Decision Making: Medium Complexity Subjective Pt pleasant and agreeable to therapy session Pain: pt reports pain in back, does not rate Past Medical History: Past Medical History: Diagnosis Date CAD (coronary artery disease) Cirrhosis of liver (HCC) Diabetes mellitus (HCC) Hypertension Osteoporosis Thyroid disease Past Surgical History: Past Surgical History: Procedure Laterality Date APPENDECTOMY CHOLECYSTECTOMY CORONARY ARTERY BYPASS GRAFT TOTAL KNEE ARTHROPLASTY Right TUBAL LIGATION Admission Diagnosis: Patient Active Problem List Diagnosis Date Noted Angina at rest (HCC) 12/26/2017 Cellulitis of right lower extremity 01/28/2024 BARRY (acute kidney injury) (HCC) 11/18/2022 UTI (urinary tract infection) 11/18/2022 Coronary artery disease involving coronary bypass graft of [place] heart without angina pectoris 09/30/2022 Nonrheumatic aortic valve stenosis 09/30/2022 Essential hypertension 09/30/2022 Dyslipidemia 09/30/2022 Generalized edema 01/27/2022 Diabetes (HCC) 01/27/2022 Medical Precautions: No active isolations Proper PPE donned/doffed in accordance with facility standards. Fall Risk: Jaramillo Fall Risk Score: 60 (High Risk) Precautions/Restrictions: N/A Family/Caregiver Present: none Overall Cognitive Status: Exceptions - Following commands: follows one step commands with repetition - Attention span: attends with cues to redirect - Safety judgement: decreased awareness of need for assistance and decreased awareness of need for safety - Problem solving: assistance required to generate solutions, assistance required to implement solutions, assistance required to identify errors made, assistance required to correct errors made, and decreased awareness of errors - Insights: decreased awareness of deficits - Initiation: requires cues for some - Sequencing: requires cues for some Overall Orientation Status: Oriented x4 Vision: wears glasses at all times and and are NOT being used during the eval Hearing: normal Social/Functional History Patient admitted from home. Lives With: Alone Type of Home: single family home Home Layout: Single Level Home Home Access: Level Entry Bathroom Shower/Tub: Tub/Shower Combo and Washes at sink/bed Toilet: Standard Home Equipment: cane Homemaking Responsibilities: Independent Receives Help From: None Active Sizing Sprayer: No Prior Level of Function ADL Assistance: Independent Ambulation Assistance: Independent Device(s) used: front wheeled walker Transfer Assistance: Independent Objective Lower Extremity Assessment AROM: WFL Strength: Exceptions: decreased in BLE noted with functional mobility Bed Mobility: Supine to sit: Mod Assist Sit to supine: Mod Assist Pt completes supine->sit requiring mod A x1 to elevate trunk into upright sitting. Pt returns to supine requiring mod A x1 for BLE management to return to supine. Transfers Sit to stand: Min Assist Stand to sit: Min Assist Pt completes sit<->stand from EOB and toilet requiring min A x1 to elevate and control descent. Cues provided for hand placement with fair carryover of cues. Ambulation Ambulation 1 Assistive device(s) used: front wheeled walker Assist level: Min Assist Distance (ft): ~25 feet x2 Quality of gait: reciprocal stepping, shuffling, slow elba Pt demos short, reciprocal gait pattern, decreased gait speed. Pt requires max verbal and tactile cues for FWW management, upright posture, maintain LEILANI within FWW with limited carryover of cues. Poor FWW management and obstacle negotiation throughout. Balance: Pt requires CGA to monitor safety and stability for dynamic standing balance for hygiene. Of note, increased time and cues for sequencing task. Outcome Measures AM-PAC How much HELP from another person do you currently need Turning from your back to your side while in a flat bed without using bedrails?: A Little Moving from lying on your back to sitting on the side of a flat bed without using bedrails?: A Lot Moving to and from a bed to a chair (including a wheelchair)?: A Little Standing up from a chair using your arms (wheelchair or bedside chair)?: A Little Walking in a hospital room?: A Little Stair climbing assessed?: No AM-PAC Inpatient Mobility Raw Score (No Stairs) : 14 Plan Pt would benefit from skilled acute PT services to address Strengthening, Balance Training, Functional Mobility Training, Endurance Training, Gait Training, Pain Management, Safety Education and Training, Patient/Caregiver Training, Equipment Evaluation/Education, and Positioning. Frequency: 5 visits during current hospital admission or until additional recommendations are made Barriers: Pain, Limited safety awareness, Limited insight into deficits, Decreased endurance, and Lower extremity weakness Safety/Education Safety Safety Devices in place: All fall risk precautions in place, call light within reach, left in bed, gait belt, patient at risk for falls, nurse notified, and no alarms engaged upon entry Restraints: N/A Education Education Given To: patient Education Provided: PT Role, PT Goals, Gait Training, Plan of Care, Precautions, Transfer Training, Energy Conservation, Equipment, Fall Prevention Education, Discharge Recommendations, and Benefits of Increasing Activity Education Method: Verbal and Demonstration Barriers to Learning: None Education Outcome: Verbalized Understanding, Demonstrated Understanding, and Continued Education Needed Goals Patient Stated Goal: Pt did not state Encounter Problems Encounter Problems (Active) Exercise Patient will complete lower extremity exercises for 1-2 sets / 5-10 reps in order to improve strength and activity tolerance for mobility. Start: 01/30/24 Expected End: 02/06/24 Mobility Patient will ambulate 100 feet with SBA and rolling walker in order to improve safety and independence with mobility. Start: 01/30/24 Expected End: 02/06/24 Transfers Patient will perform bed mobility with modified independence in order to improve independence and prepare for out of bed mobility. Start: 01/30/24 Expected End: 02/06/24 Patient will complete functional transfer with rolling walker with SBA in order to prepare for ambulation. Start: 01/30/24 Expected End: 02/06/24 Therapy Time Individual Co-treatment Time In 1348 (co-eval with OT) Time Out 1409 Minutes 21 Sadia Navarro PT Patient's Physical Therapy Plan of Care supervision is transferred to a [facility] Physical Therapist. Goals and/or treatment plan was established in collaboration with patient/family/other representatives. Images from the original note were not included. OCCUPATIONAL THERAPY [facility] Initial Evaluation Name/MRN: Mikel Winston ([id number]) Evaluation Date: 01/30/2024 Date of : 1945 Admission Date: 01/28/2024 4:25 PM Age: 78 y.o. Room[facility]Bed: [facility] B Discharge Recommendation: Jail Facility Equipment Needed: No Assessment IMPRESSION: Pt admitted to ED on 01/27 with AMS and R LE redness. Duplex was negative and pt dx with cellulitis, BARRY, UTI, encephalopathy. Prior to admission, pt lived alone and performed ADLs and mobility independently. Upon eval, pt required Mod A for bed mobility, Min A for transfers, Min A for mobility, and Mod-total for ADLs. Tx rendered for LB dressing and bathroom level toileting. Pt agrees she is much weaker than her baseline. She is not safe to return home independently at this time and would benefit from skilled OT services in order to increase safety and independence in occupational tasks. Recommend SNF upon DC. Performance Deficits /Impairments: Increased Pain, Decreased Functional Mobility, Decreased ADL status, Decreased Strength, Decreased Cognition, Decreased Endurance, Decreased Balance, and Decreased High Level IADLs Prognosis: Good Decision Making: Medium Complexity Subjective Pt very pleasant and agreeable to therapy eval. Pain: back pain with movement, did not rate Past Medical History: Past Medical History: Diagnosis Date CAD (coronary artery disease) Cirrhosis of liver (HCC) Diabetes mellitus (HCC) Hypertension Osteoporosis Thyroid disease Past Surgical History: Past Surgical History: Procedure Laterality Date APPENDECTOMY CHOLECYSTECTOMY CORONARY ARTERY BYPASS GRAFT TOTAL KNEE ARTHROPLASTY Right TUBAL LIGATION Admission Diagnosis: Patient Active Problem List Diagnosis Date Noted Angina at rest ([facility]) 12/26/2017 Cellulitis of right lower extremity 01/28/2024 BARRY (acute kidney injury) ([facility]) 11/18/2022 UTI (urinary tract infection) 11/18/2022 Coronary artery disease involving coronary bypass graft of [place] heart without angina pectoris 09/30/2022 Nonrheumatic aortic valve stenosis 09/30/2022 Essential hypertension 09/30/2022 Dyslipidemia 09/30/2022 Generalized edema 01/27/2022 Diabetes ([facility]) 01/27/2022 Medical Precautions: No active isolations Proper PPE donned/doffed in accordance with facility standards. Fall Risk: Jaramillo Fall Risk Score: 60 (High Risk) Precautions/Restrictions: N/A Family/Caregiver Present: none Overall Cognitive Status: Exceptions - Following commands: follows one step commands with increased time and follows one step commands with repetition - Safety judgement: decreased awareness of need for assistance and decreased awareness of need for safety - Problem solving: assistance required to generate solutions, assistance required to implement solutions, assistance required to identify errors made, assistance required to correct errors made, and decreased awareness of errors - Insights: decreased awareness of deficits - Initiation: requires cues for all - Sequencing: requires cues for all Overall Orientation Status: Oriented x4 Social/Functional History Patient admitted from home. Lives With: Alone Type of Home: single family home Home Layout: Single Level Home Home Access: Level Entry Bathroom Shower/Tub: Tub/Shower Combo and Washes at sink/bed Toilet: Standard Home Equipment: cane Homemaking Responsibilities: Independent Receives Help From: None Active Sizing Sprayer: No Prior Level of Function ADL Assistance: Independent Ambulation Assistance: Independent Device(s) used: front wheeled walker Transfer Assistance: Independent Objective ADLs Grooming: Contact Guard LE Dressing: Max Assist Toileting: Max Assist Pt sat at EOB and attempted to don socks but was unsuccessful. She required Max A to don socks. Pt completed bathroom level toileting, standing to perform hygiene after urinating. She required assist to doff soiled briefs. Assist required to thread B LEs into clean briefs and to manage up over hips. CGA to wash hands at the sink. Upper Extremity Assessment AROM: WFL PROM: Not assessed this session Strength: Exceptions: globally weak. ~ 3/5 MMT Vision: wears glasses at all times and and are NOT being used during the eval Hearing: normal Bed Mobility Supine to sit: Mod Assist Sit to supine: Mod Assist Scooting: Mod Assist Pt required assist to manage B LEs fully off EOB and for trunk elevation. HOB elevated and use of bed rails required. Mod A to scoot to EOB with use of chucks pad. Mod A for B LE management to return to supine. Pt denied dizziness with positional changes. Transfers/Functional Mobility Sit to stand: Min Assist Stand to sit: Min Assist Toilet: Min Assist Standing balance: Contact Guard Functional mobility: Min Assist Pt educated on hand placement for transfers. She stood from EOB to FWW with Min A. Pt walked to and from the bathroom with Min A and completed toilet transfer with Min A relying heavily on the grab bar. When walking, pt required constant cues for walker management, proximity to walker, and scanning the environment to avoid obstacles. Pt stood at the sink with CGA for static standing balance with reliance on the counter for stability. Device(s) used: front wheeled walker AM-PAC AM-PAC Inpatient Daily Activity Raw Score: 18 ADL Inpatient CMS G-Code Modifier: CK Plan Pt would benefit from skilled acute OT services to address Strengthening, Balance Training, Functional Mobility Training, Endurance Training, Pain Management, Safety Education and Training, Patient/Caregiver Training, Equipment Evaluation/Education, Positioning, Self-Care/ADL Training, and Home Management Training. Frequency: 8 visits during current hospital admission or until additional recommendations are made Barriers: Cognitive deficit, Decreased endurance, Upper extremity weakness, and Lower extremity weakness Prognosis: good Safety/Education Safety Safety Devices in place: All fall risk precautions in place, call light within reach, left in bed, gait belt, patient at risk for falls, and nurse notified Restraints: N/A Education Education Given To: patient Education Provided: OT Role, Plan of Care, ADL Adaptive Strategies, Transfer Training, Equipment, Fall Prevention Education, Discharge Recommendations, and Benefits of Increasing Activity Education Method: Verbal Barriers to Learning: Cognition Education Outcome: Verbalized Understanding and Continued Education Needed Goals Patient Stated Goal: to get stronger Encounter Problems Encounter Problems (Active) Balance Patient will maintain dynamic standing balance for 3 minutes with modified independence in order to demonstrate decreased risk of falling. Start: 01/30/24 Expected End: 02/05/24 Dressings Lower Extremities Patient will perform LB ADLs with Mod I Start: 01/30/24 Expected End: 02/05/24 Mobility pt will perform functional mobility and transfers with FWW and mod I Start: 01/30/24 Expected End: 02/05/24 Toileting Patient will complete toileting tasks at standard toilet with modified independence. Start: 01/30/24 Expected End: 02/05/24 Transfers Patient will perform bed mobility with modified independence in order to improve independence and prepare for out of bed mobility. Start: 01/30/24 Expected End: 02/05/24 Therapy Time Individual Co-treatment Time In 1348 Time Out 1409 Minutes 21 Timed Code Treatment Minutes: 8 Minutes (1 ADL) Margaret Ross OT Patient's Occupational Therapy Plan of Care supervision is transferred to a [facility] Occupational Therapist. Goals and/or treatment plan was established in collaboration with patient/family/other representatives. Hospitalist Progress Note 01/30/[phone]: Please page me ([phone]) for patient care issues. [phone]: Please page [facility] Hospitalist for any issues. Subjective: Admit Date: 01/28/2024 PCP: KOMAL COHN DO Room#: B4-458/B4-458 B Interval History: patient admitted for Acute metabolic encephalopathy in setting of cellulitis and UTI. No overnight issues. Denies chest pain, sob, abdominal pain, nausea, vomiting, diarrhea, constipation, fevers, or chills. Reports feeling well, AAOx4. Adult diet Regular; 3 carb choices (45 gm/meal) 24HR INTAKE/OUTPUT: Intake/Output Summary (Last 24 hours) at 01/30/2024 1336 Last data filed at 01/30/2024 0128 Gross per 24 hour Intake -- Output 2200 ml Net -2200 ml Past Medical History: Past Medical History: Diagnosis Date CAD (coronary artery disease) Cirrhosis of liver (HCC) Diabetes mellitus (HCC) Hypertension Osteoporosis Thyroid disease LABS: CBC: Recent Labs 01/28/24 1709 01/29/24 0536 01/30/24 0042 WBC 10.8* 9.0 6.2 RBC 3.63* 3.31* 3.17* HGB 11.8 10.5* 10.1* HCT 35.1 32.5* 31.6* MCV 96.7 98.2 99.7* RDW 13.6 13.7 13.9 PLT 105* 89* 81* BMP: Recent Labs 01/28/24 1709 01/29/24 0536 01/30/24 0042 NA 141 140 138 K 4.3 3.9 3.7 CL 107 109* 111* CO2 21* 22 21* BUN 33* 30* 30* CREATININE 1.70* 1.68* 1.58* GLUCOSE 122* 128* 148* CALCIUM 10.2 9.6 8.8 ANIONGAP 13 9 7 LIVER PROFILE: Recent Labs 01/29/24 0536 01/30/24 0042 AST 36 40 ALT 22 23 BILITOT 1.2 1.0 ALKPHOS 73 79 PROT 6.5 6.4 PT/INR: No results for input(s): PROTIME, INR in the last 72 hours. CARDIAC ENZYMES: Recent Labs 01/28/24 1709 01/28/242236 TROPONINI 0.015 0.018 Procalcitonin: Lab Results Component Value Date PROCAL 0.12 (H) 01/29/2024 COVID-19 PCR: No results for input(s): COVID19 in the last 72 hours. Objective: Vitals: BP 138/64 (BP Location: Right arm, Patient Position: Standing) Pulse 84 Temp 36.9 C (98.5 F) (Temporal) Resp 20 Ht 5' 6 (1.676 m) Wt 204 lb 12.9 oz (92.9 kg) SpO2 97% BMI 33.06 kg/m Pulse Ox: SpO2 Av.5 % Min: 93 % Max: 97 % Supplemental O2: General appearance: No apparent distress, appears stated age and cooperative with exam, AAOx4 Respiratory: CTA BL, no wheezing. Cardiovascular: Regular rate and rhythm with no murmur Abdomen: Soft, non-tender, non-distended Skin:right ankle and wu redness and cellulitis improving. Distal pulses intact in BL LE, 1+ BL LE edema present. Neurologic: grossly non-focal. Medications: aspirin, 81 mg, Oral, Daily atenolol, 50 mg, Oral, Daily cefTRIAXone, 1,000 mg, IntraVENous, q24h cholecalciferol, 5,000 Units, Oral, Daily enoxaparin, 40 mg, SubCUTAneous, Daily ferrous sulfate, 325 mg, Oral, Daily with breakfast insulin lispro, 0-12 Units, SubCUTAneous, TID WC And insulin lispro, 0-12 Units, SubCUTAneous, Nightly levothyroxine, 25 mcg, Oral, qAM AC [Held by provider] losartan, 25 mg, Oral, Daily [Held by provider] metFORMIN, 500 mg, Oral, BID WC [Held by provider] mirabegron ER, 25 mg, Oral, Nightly pantoprazole, 40 mg, Oral, qAM AC [Held by provider] potassium chloride CR, 10 mEq, Oral, Daily rosuvastatin, 20 mg, Oral, Daily vancomycin, 1,000 mg, IntraVENous, q24h vitamin E, 400 Units, Oral, Daily Assessment Acute metabolic encephalopathy, resolved 2/2 UTI, UTI Rocephin UC growing out Ecoli, sensitivities pending. Right LE cellulitis Vancomycin, pharmacy to dose [id number] gap metabolic acidosis BARRY on CKD stage 3 Gentle IVF, completed Nephrology on consult Urine studies per nephrology DM type 2 with hyperglycemia Sliding scale coverage Diabetic nephropathy Mild thrombocytopenia HTN Hold losartan in setting of BARRY Medical Decision Making 01/29/24: patient with acute metabolic encephalopathy found to have UTI and right LE cellulitis, on IV abx. Mentation improving with treatment. Patient now AAOx4. Continue with abx. Await urine cultures. CBC and BMP in the AM. PT/OT eval and treat. ACP: Discussed code status with patient, she does not want CPR, chest compressions, intubation. Confirmed code status as DNR-CCA, DNI. 01/30/24: patient mentation continues to improve. UC growing out Ecoli, sensitivities pending. Continue IV vancomycin and Rocephin. Cellulitis improving. Duplex of BL LE negative for DVT. PT/OT eval and treat. CBC and BMP in the AM. -am labs, replace lytes prn -increase activity -resume home medications as indicated -DVT prophylaxis: [x] Lovenox [] Heparin [] SCDs [x] Encourage ambulation [] Already on Anticoagulation Anticipated Discharge - Date - 01/30 - Location - Home vs SNF - Pending the following - improvement in cellulitis, UTI. Toxic drug monitoring/narrow therapeutic index drug monitoring : # Drug name : # Route administered : # Method of monitoring : Extended Emergency Contact Information Primary Emergency Contact: Arnel Forte Mobile Relation: Child Secondary Emergency Contact: Russell Winston Mobile Relation: Child Shemar Regalado DO [facility] PAGER: Epic chat [facility] Progress Note Subjective/ 78 y.o. year old female who we are seeing in consultation for BARRY. NAEON Resting in bed Feels ok BP is stable Appetite fair No issues with UOP No other new issues at this time ROS done and negative unless mentioned as above No change in PFSH All data labs/interval notes and overnight issues are reviewed Objective/ Vitals: 01/29/24 2139 01/30/24 0000 01/30/24 0128 01/30/24 0845 BP: 138/64 BP Location: Right arm Patient Position: Standing Pulse: 85 85 84 Resp: 18 20 Temp: 37.1 C (98.8 F) 36.9 C (98.5 F) TempSrc: Oral Temporal SpO2: 95% 93% 97% Weight: Height: Intake/Output Summary (Last 24 hours) at 01/30/2024 1118 Last data filed at 01/30/2024 0128 Gross per 24 hour Intake -- Output 2200 ml Net -2200 ml aspirin, 81 mg, Oral, Daily atenolol, 50 mg, Oral, Daily cefTRIAXone, 1,000 mg, IntraVENous, q24h cholecalciferol, 5,000 Units, Oral, Daily enoxaparin, 40 mg, SubCUTAneous, Daily ferrous sulfate, 325 mg, Oral, Daily with breakfast insulin lispro, 0-12 Units, SubCUTAneous, TID WC And insulin lispro, 0-12 Units, SubCUTAneous, Nightly levothyroxine, 25 mcg, Oral, qAM AC [Held by provider] losartan, 25 mg, Oral, Daily [Held by provider] metFORMIN, 500 mg, Oral, BID WC [Held by provider] mirabegron ER, 25 mg, Oral, Nightly pantoprazole, 40 mg, Oral, qAM AC [Held by provider] potassium chloride CR, 10 mEq, Oral, Daily rosuvastatin, 20 mg, Oral, Daily vancomycin, 1,000 mg, IntraVENous, q24h vitamin E, 400 Units, Oral, Daily PRN medications: acetaminophen OR acetaminophen, albuterol, dextrose, dextrose, furosemide, glucagon (rDNA), glucose, ondansetron ODT OR ondansetron, polyethylene glycol (PEG) 3350 Constitutional: Alert, awake but fatigued, no apparent distress Eyes: No icterus, no pallor HEENT: no pallor/cyanosis or icterus Cardiovascular: S1, S2 without m/r/g Respiratory: diminished throughout GI: +bs, soft, nt : palmer -ve Ext: trace to 1+ BLE edema Neck: supple, no thyroid enlargement, no JVD elevation Skin: RLE red/warm to touch (improving) Results from last 7 days Lab Units 01/30/24 0042 01/29/24 0536 01/28/24 1709 SODIUM mmol/L 138 140 141 POTASSIUM mmol/L 3.7 3.9 4.3 CHLORIDE mmol/L 111* 109* 107 CO2 mmol/L 21* 22 21* BUN mg/dL 30* 30* 33* CREATININE mg/dL 1.58* 1.68* 1.70* GLUCOSE mg/dL 148* 128* 122* CALCIUM mg/dL 8.8 9.6 10.2 Results from last 7 days Lab Units 01/30/24 0042 01/29/24 0536 01/28/24 1709 WBC AUTO 10*3/uL 6.2 9.0 10.8* HEMOGLOBIN g/dL 10.1* 10.5* 11.8 HEMATOCRIT % 31.6* 32.5* 35.1 PLATELETS AUTO 10*3/uL 81* 89* 105* Assessment/Plan BARRY/ATN 2/2 suspected volume depletion from poor po intake in the setting of arb/diuresis vs UTI vs AUR (N17.0) CKD3a (N18.31) UTI (N39.0) 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) RLE cellulitis AMS Plan: -Scr improving, nearing bl~1.3, non-oliguric, BP stable -C/w holding losartan and lasix for now, should be ok to resume upon discharge -Will also hold anti-cholinergic for now to rule out AUR, recommend outpatient urology referral -Ok to dc IVF -KELLI -ve for acute process -PVR -ve -Avoid nephrotoxins and contrast dye -Dose all meds per current eGFR -Your DM rx -UTI and cellulitis rx per primary -Ok for discharge planning from renal standpoint, outpatient BMP ordered and needs close follow up with nephrology in 1 week -We will follow closely with you Thank you for the consult and the opportunity to participate in the care of this patient. Please do not hesitate to contact us with any questions or concerns. Le Dobson, MACHINE TESTER, CARDIOVASCULAR DISEASE SPECIALIST [facility], [employer] [phone] Associated attestation - Liss Erickson MD - 01/30/2024 4:35 PM EDT I have reviewed the above assessment and plan with the SCIENTIFIC ILLUSTRATOR. I agree with above note. BARRY improving. Renal USG negative Nutrition rescreen complete. Pt assigned a level one for nutrition care. Hospitalist Progress Note 01/29/2024 [id number]: Please page me ([phone]) for patient care issues. [phone]: Please page [facility] Hospitalist for any issues. Subjective: Admit Date: 01/28/2024 PCP: KOMAL COHN DO Room#: B4-402/B4-163 B Interval History: patient admitted for Acute metabolic encephalopathy in setting of cellulitis and UTI. No overnight issues. Denies chest pain, sob, abdominal pain, nausea, vomiting, diarrhea, constipation, fevers, or chills. Reports feeling much better, AAOx4. Adult diet Regular; 3 carb choices (45 gm/meal) 24HR INTAKE/OUTPUT: Intake/Output Summary (Last 24 hours) at 01/29/2024 1236 Last data filed at 01/29/2024 0900 Gross per 24 hour Intake 862.5 ml Output 550 ml Net 312.5 ml Past Medical History: Past Medical History: Diagnosis Date CAD (coronary artery disease) Cirrhosis of liver (HCC) Diabetes mellitus (HCC) Hypertension Osteoporosis Thyroid disease LABS: CBC: Recent Labs 01/28/24 1709 01/29/24 0536 WBC 10.8* 9.0 RBC 3.63* 3.31* HGB 11.8 10.5* HCT 35.1 32.5* MCV 96.7 98.2 RDW 13.6 13.7 PLT 105* 89* BMP: Recent Labs 01/28/24 1709 01/29/24 0536 NA 141 140 K 4.3 3.9 CL 107 109* CO2 21* 22 BUN 33* 30* CREATININE 1.70* 1.68* GLUCOSE 122* 128* CALCIUM 10.2 9.6 ANIONGAP 13 9 LIVER PROFILE: Recent Labs 01/29/24 0536 AST 36 ALT 22 BILITOT 1.2 ALKPHOS 73 PROT 6.5 PT/INR: No results for input(s): PROTIME, INR in the last 72 hours. CARDIAC ENZYMES: Recent Labs 01/28/24 17001/28/247 TROPONINI 0.015 0.018 Procalcitonin: No results found for: PROCAL COVID-19 PCR: No results for input(s): COVID19 in the last 72 hours. Objective: Vitals: BP 138/60 (BP Location: Right arm, Patient Position: Lying) Pulse 78 Temp 36.9 C (98.4 F) (Temporal) Resp 17 Ht 5' 6 (1.676 m) Wt 204 lb 12.9 oz (92.9 kg) SpO2 98% BMI 33.06 kg/m Pulse Ox: SpO2 Av.8 % Min: 98 % Max: 99 % Supplemental O2: General appearance: No apparent distress, appears stated age and cooperative with exam, AAOx4 Respiratory: CTA BL Cardiovascular: Regular rate and rhythm with no murmur Abdomen: Soft, non-tender, non-distended Skin:right ankle and wu redness and cellulitis. Distal pulses intact in BL LE, 1+ BL LE edema present. Neurologic: grossly non-focal. Medications: sodium chloride, 75 mL/hr, Last Rate: 75 mL/hr (01/28/24 2200) aspirin, 81 mg, Oral, Daily atenolol, 50 mg, Oral, Daily cefTRIAXone, 1,000 mg, IntraVENous, q24h cholecalciferol, 5,000 Units, Oral, Daily enoxaparin, 40 mg, SubCUTAneous, Daily ferrous sulfate, 325 mg, Oral, Daily with breakfast insulin lispro, 0-12 Units, SubCUTAneous, TID WC And insulin lispro, 0-12 Units, SubCUTAneous, Nightly levothyroxine, 25 mcg, Oral, qAM AC [Held by provider] losartan, 25 mg, Oral, Daily [Held by provider] metFORMIN, 500 mg, Oral, BID WC [Held by provider] mirabegron ER, 25 mg, Oral, Nightly pantoprazole, 40 mg, Oral, qAM AC [Held by provider] potassium chloride CR, 10 mEq, Oral, Daily rosuvastatin, 20 mg, Oral, Daily vancomycin, 1,000 mg, IntraVENous, q24h vitamin E, 400 Units, Oral, Daily Assessment Acute metabolic encephalopathy, resolved 2/2 UTI, UTI Rocephin UC pending Right LE cellulitis Vancomycin, pharmacy to dose [id number]-iih-vgvzo gap metabolic acidosis BARRY on CKD stage 3 Gentle IVF Nephrology on consult Urine studies per nephrology DM type 2 with hyperglycemia Sliding scale coverage Diabetic nephropathy Mild thrombocytopenia HTN Hold losartan in setting of BARRY Medical Decision Making 01/29/24: patient with acute metabolic encephalopathy found to have UTI and right LE cellulitis, on IV abx. Mentation improving with treatment. Patient now AAOx4. Continue with abx. Await urine cultures. CBC and BMP in the AM. PT/OT eval and treat. ACP: Discussed code status with patient, she does not want CPR, chest compressions, intubation. Confirmed code status as DNR-CCA, DNI. -am labs, replace lytes prn -increase activity -resume home medications as indicated -DVT prophylaxis: [] Lovenox [] Heparin [] SCDs [x] Encourage ambulation [] Already on Anticoagulation Anticipated Discharge - Date - 01/30 - Location - Home vs SNF - Pending the following - improvement in cellulitis, UTI. Toxic drug monitoring/narrow therapeutic index drug monitoring : # Drug name : # Route administered : # Method of monitoring : Extended Emergency Contact Information Primary Emergency Contact: Arnel Forte Mobile Relation: Child Secondary Emergency Contact: Russell Winston Mobile Relation: Child Shemar Regalado DO Division of Hospitalist Medicine Inpatient Medical Services/[facility] PAGER: Epic chat Images from the original note were not included. PHYSICAL THERAPY [facility] Name/MRN: Mikel Winston ([id number]) Date: 01/29/2024 Chart reviewed. Pt with pending Duplex. Will await result and attempt as appropiate Siddharth Irving PT Images from the original note were not included. Speech-Language Pathology SPEECH LANGUAGE PATHOLOGY [facility] Bedside Swallow Evaluation Patient Name: Mikel Winston Evaluation Date: 01/29/2024 Date of : 1945 Admission Date: 01/28/2024 4:25 PM Age: 78 y.o. Room[facility]Bed: [facility] B IMPRESSION: No s/s oropharyngeal dysphagia. No overt clinical s/s pulmonary compromise with PO. Risk factors for aspiration include some missing teeth. RECOMMENDATION: Recommend Regular solids and Thin liquids and meds as tolerated and the following precautions: - Upright positioning for all PO intake - Slow rate of intake - Small bites/sips No skilled acute INTERNET RETAILER indicated at this time. Please reconsult should changes occur. Subjective Patient alert and cooperative. Seen upright in bed. Answers all basic questions with clear vocal quality. Follows all basic commands. No visitors at bedside. Spoke with JANES Lagunas who cleared pt to be evaluated. Dysphagia History: No history of INTERNET RETAILER services in EMR with retrospective chart review Baseline Diet: regular/thin liquids Current Diet: Dietary Orders (From admission, onward) Start Ordered 01/28/241939 Adult diet Regular; 3 carb choices (45 gm/meal) Diet effective now Question Answer Comment Diet type Regular Carbohydrate restriction: 3 carb choices (45 gm/meal) 01/28/241941 Tube Feeding: no Tracheostomy: no Recent Chest Xray/CT of Chest: No results found for this visit on 01/28/24. Oxygen: Oxygen Therapy: None (Room air) Past Medical History: Past Medical History: Diagnosis Date CAD (coronary artery disease) Cirrhosis of liver (HCC) Diabetes mellitus (HCC) Hypertension Osteoporosis Thyroid disease Past Surgical History: Past Surgical History: Procedure Laterality Date APPENDECTOMY CHOLECYSTECTOMY CORONARY ARTERY BYPASS GRAFT TOTAL KNEE ARTHROPLASTY Right TUBAL LIGATION Admission Diagnosis: Patient Active Problem List Diagnosis Date Noted Angina at rest ([facility]) 12/26/2017 Cellulitis of right lower extremity 01/28/2024 BARRY (acute kidney injury) ([facility]) 11/18/2022 UTI (urinary tract infection) 11/18/2022 Coronary artery disease involving coronary bypass graft of [place] heart without angina pectoris 09/30/2022 Nonrheumatic aortic valve stenosis 09/30/2022 Essential hypertension 09/30/2022 Dyslipidemia 09/30/2022 Generalized edema 01/27/2022 Diabetes ([facility]) 01/27/2022 History of Present Illness: Mikel is a 78 y.o. female with past medical history below who presents with chief complaint listed above. Patient is disoriented and was brought to the ED for evaluation, history mostly obtained from the ED physician and the daughter, she lives by herself, family noticed her being more confused she also has increasing redness in the right leg, she has a history of frequent UTIs, most recent UTI was a month ago, she is a type II diabetic, urine in November grew Citrobacter with less colonies Labs done in the emergency department and interpreted by me, WBC 10.8, H&H 11.8/35.1, platelets 105, CRP added Sodium 141, potassium 4.3, chloride 107, carbon dioxide 21, BUN/creatinine 33/1.7, Serum glucose 122 Urine analysis showed 26-50 WBC and many bacteria Right leg is slightly tender she winces in pain along with redness see pictures, she was given ceftriaxone and vancomycin in the ED, CT head was negative Assessment Discussed management with the ED provider and agree with hospitalization. Acute, acute on chronic, unstable/uncontrolled chronic problems/diagnoses: Acute confusional state/delirium-due to combination of possible UTI and right lower extremity cellulitis Possible UTI-urine shows pyuria and many bacteria Right lower extremity cellulitis Mild non-anion gap metabolic acidosis Obesity Type 2 diabetes mellitus with hyperglycemia on metformin at home Acute kidney injury on chronic kidney disease stage IIIA (creatinine 1.3 in November worsened to 1.7 today) Diabetic nephropathy Mild thrombocytopenia-history of cirrhosis of liver Stable chronic problems affecting care, new non-acute diagnoses: Past Medical History: Diagnosis Date CAD (coronary artery disease) Cirrhosis of liver (HCC) Diabetes mellitus (HCC) Hypertension Osteoporosis Thyroid disease Patient Complaint: Patient voices no complaints at bedside. Patient is consuming pills with water via large bore straw without incident when clinician enters. ST evaluation ordered for dysphagia. Pain: Pt denies any current pain. RN managing pain. PPE Worn: gloves Objective Bedside swallow eval completed. Patient presents with grossly WFL swallow function. Oral Motor Mechanism Dentition - Some missing teeth Oral Hygiene: clean Swallowing Examination PO Trials - thin liquid, (straw, sequential swallows, self administered) - puree, (teaspoon, self administered) - regular solids Oral Phase Pt with adequate oral receipt of PO trials. No anterior spillage. Mastication appeared complete, organized, and timely. Oral transit time appears WFL. No oral residue. Pharyngeal Phase Hyolaryngeal excursion clinically appears adequate and timely per palpation. 1-2 swallows palpated per bolus, likely indicative of adequate pharyngeal clearance. No overt clinical s/s airway penetration as evidenced by no cough, no throat clear, and no change in vocal quality. Education Education Given: swallowing strategies, diet recommendations Given To: patient and RN Response: verbalizes understanding Goals Patient Stated Goal: To go home. Therapy Time INTERNET RETAILER Individual Minutes Time In: 08 Time Out: 08 Minutes: 11 GUILLERMO Mei Images from the original note were not included. OCCUPATIONAL THERAPY [facility] Name/MRN: Mikel Winston ([id number]) Date: 01/29/2024 Therapy eval and treat orders received. Chart review complete. Per chart review, pt with pending BLE duplex. Will await results and potential anticoagulation needs prior to initiation of therapy. Quinn Alcala OT Pharmacy to Dose Vancomycin - Progress Note Recent Labs 01/28/24 1709 01/29/24 0536 BUN 33* 30* CREATININE 1.70* 1.68* Lab Results Component Value Date VANCORANDOM 16.4 01/29/2024 [facility] 27.0 (H) 12/19/2021 Doses, serum creatinine, and vancomycin levels interfaced automatically to [employer] and data has been analyzed and interpreted. Infectious Diagnosis: SSTI Est CrCl: 40.5 mL/min (Cockcroft-Gault) Assessment: Current regimen vancomycin 1000 mg every 24 hours. Predicted AUC = 471 mg/L*hr (goal 400-600 mg/L*hr) Plan: Is the current dose therapeutic? [x] Yes - obtain next level on 02/05/2024 unless predicted AUC is sub-/supra-therapeutic or change in serum creatinine. Trend serum creatinine. Trend AUC using Bayesian Modeling. Orders placed. DATE: 01/29/24 TIME: 6:24 AM Amauri Turcios RPh Clinical Pharmacist Available via Secure Chat documented in this encounter [facility] 02-02-2024 Note Formatting of this n ote might be different from the original. Messaged [facility] to send dc packet to [facility]. . [facility] 02-02-2024 Note Formatting of this n ote might be different from the original. Messaged [facility] to send dc packet to [facility]. . [facility] 02-02-2024 Note Formatting of this n ote might be different from the original. Discharge med list transmitted to [facility] via [facility] per TCC request. 7000 previously completed in [facility]. Facility is aware [facility] 02-02-2024 Note Formatting of this n ote might be different from the original. Discharge med list transmitted to [facility] via [facility]port per TCC request. 7000 previously completed in [facility]. Facility is aware [facility] 02-02-2024 Note [facility] 02-02-2024 Hospital course Narrative Discharge Summary Mikel Winston : 1945 ADMIT DATE: 01/28/2024 DISCHARGE DATE: 02/02/2024 PRIMARY CARE PHYSICIAN: KOMAL COHN VISIT STATUS: Admission CODE STATUS: DNR-CCA DISCHARGE DIAGNOSES: Principal Problem: Cellulitis of right lower extremity Acute metabolic encephalopathy, resolved- secondary to UTI E coli UTI treated with ceftriaxone, completed course Right LE cellulitis, related to DM- treated with vanc/Zyvox and ceftriaxone . DC on zyvox and ceftriaxone to complete the course. Sybr-kdn-kczrz gap metabolic acidosis- improved Acute renal insuffiencey on CKD stage 3- creatinine stable and near baseline, will hold ARB and metformin, BMP in 3 days, follow up with nephrology in 1 week. DM type 2 with hyperglycemia-DC metformin and started on januvia, up titrate as needed. Diabetic nephropathy Mild thrombocytopenia - improved. HTN- losartan discontinued . Monitor BP Hypokalemia/hypomagnesemia - replaced Mild anemia - stable HOSPITAL COURSE: Admitted with AMS. Found to have E coli UTI, treated with ceftriaxone. Course completed before discharge. Has RLE cellulitis, which was treated with IV antibiotics followed by oral zyvox and improved before discharge. Regarding LE edema and renal insuffiencey, nephrology consulted and medication adjusted. Would continue with lasix 20 mg oral daily on discharge and would follow up with nephrology as an outpatient. SIGNIFICANT DIAGNOSTIC STUDIES: USG renal, x ray , CT head, labs CONSULTANTS: Nephrology RECOMMENDED NEXT STEPS: CBC/BMP in 3 days Follow up with nephrology in 1 week. Monitor BP closely Januvia started for DM, can uptitrate as needed. Exam: BP 113/50 (BP Location: Right arm, Patient Position: Sitting) Pulse 55 Temp 36 C (96.8 F) (Temporal) Resp 16 Ht 5' 6 (1.676 m) Wt 204 lb 12.9 oz (92.9 kg) SpO2 92% BMI 33.06 kg/m General: alert, awake Chest : b/l equal air entry, no added sound CVS: s1, s2, mo PA: soft, NT, BS+ Ext: edema +, erythema RLE better, Neuro: alert, awake, no focal lateralizing signs noted. DISCHARGE MEDICATIONS: Medication List START taking these medications amoxicillin-clavulanate 875-125 MG tablet Commonly known as: Augmentin Take 1 tablet by mouth 2 times daily for 5 days. linezolid 600 MG tablet Commonly known as: Zyvox Take 1 tablet (600 mg) by mouth 2 times daily for 5 days. SITagliptin 25 MG tablet Commonly known as: Januvia Take 1 tablet (25 mg) by mouth daily. CONTINUE taking these medications alpha tocopherol 100 units capsule Commonly known as: Vitamin E aspirin 81 MG EC tablet atenolol 50 MG tablet Commonly known as: Tenormin ferrous sulfate 325 (65 Fe) MG tablet furosemide 20 MG tablet Commonly known as: Lasix levothyroxine 50 MCG tablet Commonly known as: Synthroid, Levoxyl TAKE 1 TABLET BY MOUTH DAILY Myrbetriq 25 MG 24 hr tablet Generic drug: mirabegron ER omeprazole [address] capsule Commonly known as: PriLOSEC rosuvastatin 20 MG tablet Commonly known as: Crestor Take 1 tablet (20 mg) by mouth daily. Vitamin D 125 MCG (5000 UT) capsule STOP taking these medications losartan 25 MG tablet Commonly known as: Cozaar metFORMIN 500 MG tablet Commonly known as: Glucophage potassium chloride CR 10 MEQ ER tablet Commonly known as: Klor-Con M10 Where to Get Your Medications These medications were sent to [facility] [address] [facility] [address] Hours: Tuesday to Tuesday 10 am to 6 pm amoxicillin-clavulanate 875-125 MG tablet linezolid 600 MG tablet SITagliptin 25 MG tablet DIET: Adult diet Regular; 3 carb choices (45 gm/meal) ACTIVITY: No restriction. COMPLEXITY OF FOLLOW UP: [x] Moderate Complexity: follow up within 7-14 calendar days (98964) [] Severe Complexity: follow up within 7 calendar days (54516) FOLLOW UP TESTING, PENDING RESULTS OR REFERRALS AT TRANSITIONAL CARE VISIT: [x] Yes [] No PENDING STUDIES: DISPOSITION: Skilled Facility FACILITY/HOME CARE AGENCY NAME: Follow up with Liss Erickson MD [address] [place] [address] [facility] [address] Follow up in 1 week(s) on INSTRUCTIONS TO MA/SW: Please call patient on day after discharge (must document patient contacted within 2 business days of discharge). FOLLOW UP QUESTIONS FOR MA/SW: 1. Did you get medications filled and taking them as instructed from discharge? 2. Are you following your discharge instructions from your hospital stay? 3. Please confirm patient is scheduled for a follow up appointment within the above time frame. DISCHARGE TIME: 40 min . SIGNED: Terence Gonzalez MD 02/02/2024, 10:40 AM documented in this encounter [facility] 02-02-2024 Note Formatting of this n ote is different from the original. Images from the original note were not included. Care Management Progress Note Anticipate discharge to [facility] today.. . Discharge Milestones and Delays Expected date/time: 02/01/2024 Anticipated medical readiness: 02/01/2024 Expected discharge disposition: Jail Facility Discharge Milestones Place discharge order Complete med reconciliation Case mgmt discharge readiness Clinical Stability Diagnostic Workup Facility Choice Selection Patient Education Complete Expected Discharge History Expected Date/Time Set By Reviewed At 02/01/2024 Jade Russell RN 02/01/2024 9:25 AM tcc est 02/02/2024 Jade Russell RN 01/31/2024 9:12 AM 02/02/2024 Jade Russell RN 01/31/2024 9:12 AM 02/01/2024 Jade Russell RN 01/30/2024 9:00 AM 01/31/2024 Alia Russo APRN - JATIN 01/28/2024 7:46 PM 01/31/2024 Alia Russo APRN - JATIN 01/28/2024 7:06 PM Length of Stay (Days): 5 GMLOS: 3.9 [facility] 02-02-2024 Note Formatting of this n ote is different from the original. Images from the original note were not included. Care Management Progress Note Anticipate discharge to [facility] today.. . Discharge Milestones and Delays Expected date/time: 02/01/2024 Anticipated medical readiness: 02/01/2024 Expected discharge disposition: Jail Facility Discharge Milestones Place discharge order Complete med reconciliation Case mgmt discharge readiness Clinical Stability Diagnostic Workup Facility Choice Selection Patient Education Complete Expected Discharge History Expected Date/Time Set By Reviewed At 02/01/2024 Jade Russell RN 02/01/2024 9:25 AM tcc est 02/02/2024 Jade Russell RN 01/31/2024 9:12 AM 02/02/2024 Jade Russell RN 01/31/2024 9:12 AM 02/01/2024 Jade Russell RN 01/30/2024 9:00 AM 01/31/2024 Alia Russo APRN - JATIN 01/28/2024 7:46 PM 01/31/2024 Alia Russo APRN - CARDIOVASCULAR DISEASE SPECIALIST 01/28/2024 7:06 PM Length of Stay (Days): 5 GMLOS: 3.9 [facility] 02-01-2024 Note Formatting of this n ote might be different from the original. Did update patient that plan was to discharge to [facility] probably tomorrow. . [facility] 02-01-2024 Note Formatting of this n ote might be different from the original. Did update patient that plan was to discharge to [facility] probably tomorrow. . [facility] 02-01-2024 Note Formatting of this n ote might be different from the original. 7000 was entered into [employer] for the [facility] per TCC request. Facility is aware. [facility] 02-01-2024 Note Formatting of this n ote might be different from the original. 7000 was entered into [employer] for the SNF- [facility] per TCC request. Facility is aware. T [facility] 02-01-2024 Note Formatting of this n ote might be different from the original. Tasked PREDICTIVE MAINTENANCE TECHNICIAN to complete 7000. Updated [facility] via careport that per attending, anticipate dc tomorrow. Per [facility] auth is good through 02/05. . [facility] 02-01-2024 Note Formatting of this n ote might be different from the original. Tasked PREDICTIVE MAINTENANCE TECHNICIAN to complete 7000. Updated [facility] via careport that per attending, anticipate dc tomorrow. Per [facility] auth is good through 02/05. . [facility] 02-01-2024 Hospital Discharge instructions Keyana Trimble LPN - 02/01/2024 8:45 AM EDT Images from the original note were not included. Continuity of Care Form Patient Name: Mikel Winston : 1945 Admit date: 01/28/2024 Discharge date: Code Status Order: DNR-CCA Advance Directives: N Admitting Physician: Sukhi Maurer MD PCP: KOMAL COHN DO Discharging Nurse: Gregg Trimble LPN Discharging Hospital Unit/Room#: B4-458/B4-458 B Discharging Unit Emergency Contact: Extended Emergency Contact Information Primary Emergency Contact: Arnel Forte Mobile Relation: Child Secondary Emergency Contact: Russell Winston Mobile Relation: Child Past Surgical History: Past Surgical History: Procedure Laterality Date APPENDECTOMY CHOLECYSTECTOMY CORONARY ARTERY BYPASS GRAFT TOTAL KNEE ARTHROPLASTY Right TUBAL LIGATION Immunization History: Immunization History Administered Date(s) Administered Influenza, High Dose Seasonal, Preservative Free 03/28/2017 Moderna SARS-CoV-2 Vaccination 04/15/2021 Pneumococcal Conjugate PCV 13 02/25/2017 Active Problems: Medical Problems Problem List * (Principal) Cellulitis of right lower extremity Angina at rest (HCC) Generalized edema Diabetes (HCC) Coronary artery disease involving coronary bypass graft of [place] heart without angina pectoris Nonrheumatic aortic valve stenosis Essential hypertension Dyslipidemia BARRY (acute kidney injury) (HCC) UTI (urinary tract infection) Isolation/Infection: No active isolations No active infections Nurse Assessment: Last Vital Signs: BP (!) 113/49 (BP Location: Right arm, Patient Position: Lying) Pulse 59 Temp 36.2 C (97.1 F) (Temporal) Resp 16 Ht 1.676 m (5' 6) Wt 92.9 kg (204 lb 12.9 oz) SpO2 99% BMI 33.06 kg/m Last documented pain score (0-10 scale): Last Weight: Wt Readings from Last 1 Encounters: 01/28/24 92.9 kg (204 lb 12.9 oz) Mental Status: FAM Patient Mental Status: oriented and alert IV Access: FAM IV Access: None Nursing Mobility/ADLs: Walking Minimal assistance Transfer Minimal assistance Bathing Minimal assistance Dressing Minimal assistance Toileting Minimal assistance Feeding Independent Mechanical Test Engineer Minimal assistance Med Delivery yes Wound Care Documentation and Therapy: Elimination: Continence: Bowel: yes Bladder: no Urinary Catheter: None Colostomy/Ileostomy/Ileal Conduit: None Date of Last BM: 01/28/24 Intake/Output Summary (Last 24 hours) at 02/01/2024 0843 Last data filed at 01/31/2024 1054 Gross per 24 hour Intake -- Output 700 ml Net -700 ml I/O last 3 completed shifts: In: - (0 mL/kg) Out: 1900 (20.5 mL/kg) [Urine:1900 (0.6 mL/kg/hr)] Weight: 92.9 kg Safety Concerns: at risk for falls Impairments/Disabilities: none Nutrition Therapy: Current Nutrition Therapy: Oral diet: carb control 3 carbs/meal (1500kcals/day) Routes of Feeding: oral Liquids: no restrictions Daily Fluid Restriction: no Last Modified Barium Swallow with Video (Video Swallowing Test): not done Treatments at the Time of Hospital Discharge: Respiratory Treatments: NA Oxygen Therapy: is on oxygen at 2 L/min per nasal cannula. Ventilator: No ventilator support Rehab Therapies: physical therapy, occupational therapy, nursing, and aide Weight Bearing Status/Restrictions: no restriction Other Medical Equipment (for information only, NOT a DME order): bedside commode, wheeled walker, and shower chair Other Treatments: NA Patient's personal belongings (please select all that are sent with patient): none RN SIGNATURE: MANAGEMENT/SOCIAL WORK SECTION Inpatient Status Date: Discharging to Facility/ Agency Name: [facility] Address:[address] [place] [address] [place] [address] Dialysis Facility (if applicable) Name: Address: Dialysis Schedule: Phone: Fax: Kiln Door Builder/Metal Buildings Assembler signature: ICIAN SECTION Name: Mikel Winston Prognosis: fair Condition at Discharge: stable Rehab Potential (if transferring to Rehab): fair Recommended Labs or Other Treatments After Discharge: CBC/BMP in 3 days Follow up with nephrology in 1 week. Wean oxygen as tolerated. Monitor BP closely Januvia started for DM, can uptitrate as needed. The individual is being admitted to a nursing facility directly from an [facility] or a unit of a [facility] that is not operated by or licensed by [facility] under section 5119.14 or 5160-3-15.1 5 The individual requires the level of services provided by a nursing facility for the condition for which he or she was treated in the hospital and, Physician Certification: I certify the above information and transfer of Mikel Winston is necessary for the continuing treatment of the diagnosis listed and that she requires shelter facility for less than 30 days. Update Admission H&P: No change in H&P PHYSICIAN SIGNATURE: documented in this encounter [facility] 01-31-2024 Note Formatting of this n ote might be different from the original. SDOH completed at bedside with patient. Patient reports no transportation issues. Reports having some concerns about her diet changes with salt and is worried about what she can and can't have at home. Reports being able to grocery shop and prepare her own meals but is not sure what she can eat now that there have been some changes. Explained that patient can talk with RN, hospitalist, and hospital probate clerk if needing more clarification on this. Epic chat sent to probate clerk. No other SW needs noted. [facility] 01-31-2024 Note Formatting of this n ote might be different from the original. SDOH completed at bedside with patient. Patient reports no transportation issues. Reports having some concerns about her diet changes with salt and is worried about what she can and can't have at home. Reports being able to grocery shop and prepare her own meals but is not sure what she can eat now that there have been some changes. Explained that patient can talk with RN, hospitalist, and hospital probate clerk if needing more clarification on this. Epic chat sent to probate clerk. No other SW needs noted. [facility] 01-31-2024 Note Formatting of this n ote might be different from the original. Discharge plan is SNF. HCL to sign off. Please re-consult if needed. [facility] 01-31-2024 Note Formatting of this n ote might be different from the original. Discharge plan is SNF. HCL to sign off. Please re-consult if needed. T [facility] 01-31-2024 Note Formatting of this n ote might be different from the original. [facility] is able to accept. Did request that they submit for insurance auth. . [facility] 01-31-2024 Note Formatting of this n ote might be different from the original. [facility] is able to accept. Did request that they submit for insurance auth. . [facility] 01-31-2024 Note Formatting of this n ote might be different from the original. [facility]. Await review and response regarding ability to accept. TCC notified. [facility] 01-31-2024 Note Formatting of this n ote might be different from the original. Referral placed to [facility] via [facility] per TCC request. Await review and response regarding ability to accept. TCC notified. [facility] 01-31-2024 Note Referral placed to [facility] via [facility] per TCC request. Await review and response regarding ability to accept. TCC notified. [facility] 01-31-2024 Note Formatting of this n ote might be different from the original. Spoke with patient. She is in agreement with snf referral. Did provide with SNF list. Referral placed to [facility] per her request .. [facility] 01-31-2024 Note Formatting of this n ote might be different from the original. Spoke with patient. She is in agreement with snf referral. Did provide with SNF list. Referral placed to [facility] per her request .. [facility] 01-31-2024 Note Spoke with patient. She is in agreement with snf referral. Did provide with SNF list. Referral placed to [facility] per her request .. [facility] 01-31-2024 Consult note Associated Order (s): PHARMACY TO DOSE VANCO Vancomycin therapy has been discontinued by Dr. Gonzalez on 01/30. Thank you for the consult. Pharmacy signing off for vancomycin dosing. Ginny Zickefoose, RP, Date: 01/31/24 Time: 10:32 AM [facility] 01-31-2024 Consult note Associated Order (s): PHARMACY TO DOSE VANCO Vancomycin therapy has been discontinued by Dr. Gonzalez on 01/30. Thank you for the consult. Pharmacy signing off for vancomycin dosing. Ginny Gramajo [facility], Date: 01/31/24 Time: 10:32 AM Associated Order(s): IP CONSULT TO NEPHROLOGY [facility] Consult Note Reason for Consult: BARRY/CKD3a Requesting Physician: Sukhi Maurer MD Chief Complaint: Chief Complaint Patient presents with Urinary Problem Family called pt today and she seemed a little off like she does when she has a UTI. Most recent UTI was a month ago. PT has frequent UTI's History of Present Ilness: Mikel is a 78 y.o. female with past medical history below who presented with chief complaint listed above. Patient is disoriented and was brought to the ED for evaluation, history mostly obtained from the ED physician and the daughter, she lives by herself, family noticed her being more confused she also has increasing redness in the right leg, she has a history of frequent UTIs, most recent UTI was a month ago, she is a type II diabetic, urine in November grew Citrobacter. Nephrology is asked to see the patient for BARRY/CKD3a. Scr is currently 1.68, previously 1.70 and has a baseline of ~1.3. No known use of nsaids. She takes losartan and lasix daily. UOP ok. No relative hypotension. No evidence of BERTA. PO intake has been fair, does not think she drinks enough fluids. Some nausea, denies V/D. Past Medical History: Past Medical History: Diagnosis Date CAD (coronary artery disease) Cirrhosis of liver (HCC) Diabetes mellitus (HCC) Hypertension Osteoporosis Thyroid disease Past Surgical History: Past Surgical History: Procedure Laterality Date APPENDECTOMY CHOLECYSTECTOMY CORONARY ARTERY BYPASS GRAFT TOTAL KNEE ARTHROPLASTY Right TUBAL LIGATION Home Medications: No current facility-administered medications on file prior to encounter. Current Outpatient Medications on File Prior to Encounter Medication Sig Dispense Refill alpha tocopherol (Vitamin E) 100 units capsule Take 100 Units by mouth daily. aspirin 81 MG EC tablet Take 81 mg by mouth daily. atenolol (Tenormin) 50 MG tablet Take 50 mg by mouth daily. Cholecalciferol (Vitamin D) 125 MCG (5000 UT) capsule Take 5,000 Units by mouth daily. ferrous sulfate 325 (65 Fe) MG tablet Take 325 mg by mouth daily (with breakfast). furosemide (Lasix) 20 MG tablet Take 20 mg by mouth daily. levothyroxine (Synthroid, Levoxyl) 50 MCG tablet TAKE 1 TABLET BY MOUTH DAILY 30 tablet 3 losartan (Cozaar) 25 MG tablet Take 25 mg by mouth daily. metFORMIN (Glucophage) 500 MG tablet Take 500 mg by mouth in the morning and 500 mg in the evening. Take with meals. mirabegron ER (Myrbetriq) 25 MG 24 hr tablet Take 25 mg by mouth Nightly. Do not crush, chew, or split. omeprazole (PriLOSEC) [address] capsule Take 40 mg by mouth every morning (before breakfast). Do not crush or chew. potassium chloride CR (Klor-Con M10) 10 MEQ ER tablet Take 10 mEq by mouth daily. Do not crush or chew. rosuvastatin (Crestor) 20 MG tablet Take 1 tablet (20 mg) by mouth daily. 90 tablet 0 Allergies: Codeine Social History: Social History Socioeconomic History Marital status: Spouse name: Not on file Number of children: Not on file Years of education: Not on file Highest education level: Not on file Occupational History Not on file Tobacco Use Smoking status: Never Smokeless tobacco: Never Substance and Sexual Activity Alcohol use: No Drug use: No Sexual activity: Not Currently Other Topics Concern Not on file Social History Narrative Not on file Social Determinants of Health Financial Resource Strain: Medium Risk (01/28/2024) Overall Financial Resource Strain (CARDIA) Difficulty of Paying Living Expenses: Somewhat hard Food Insecurity: Food Insecurity Present (01/28/2024) Hunger Vital Sign Worried About Running Out of Food in the Last Year: Sometimes true Ran Out of Food in the Last Year: Sometimes true Transportation Needs: Unmet Transportation Needs (01/28/2024) PRAPARE - Transportation Lack of Transportation (Medical): Yes Lack of Transportation (Non-Medical): Yes Physical Activity: Insufficiently Active (01/28/2024) Exercise Vital Sign Days of Exercise per Week: 2 days Minutes of Exercise per Session: 10 min Stress: Stress Concern Present (01/28/2024) [place] [employer] - Occupational Stress Questionnaire Feeling of Stress : To some extent Social Connections: Moderately Integrated (01/28/2024) Social Connection and Isolation Panel [NHANES] Frequency of Communication with Friends and Family: More than three times a week Frequency of Social Gatherings with Friends and Family: More than three times a week Attends Nondenominational Services: More than 4 times per year Active Member of Clubs or Organizations: No Attends Club or Organization Meetings: Never Marital Status: Intimate Partner Violence: Not At Risk (01/28/2024) Humiliation, Afraid, Rape, and Kick questionnaire Fear of Current or Ex-Partner: No Emotionally Abused: No Physically Abused: No Sexually Abused: No Housing Stability: Low Risk (01/28/2024) Housing Stability Vital Sign Unable to Pay for Housing in the Last Year: No Number of Times Moved in the Last Year: 1 Homeless in the Last Year: No Family History: Family History Problem Relation Name Age of Onset Stroke Father's Brother Diabetes Father Mental illness Mother Coronary artery disease Brother Review of Systems: Pertinent positives stated above in HPI. All other systems were reviewed and were negative. Physical exam: Constitutional: Vitals: 01/28/24 1857 01/28/24 1949 01/28/24202701/28/24 2130 BP: (!) 155/81 147/64 Pulse: 87 101 Resp: 18 21 Temp: 37.5 C (99.5 F) TempSrc: Temporal SpO2: 99% 99% Weight: 92.9 kg (204 lb 12.9 oz) Height: 1.676 m (5' 6) CURRENT TEMPERATURE: Temp: 37.5 C (99.5 F) MAXIMUM TEMPERATURE OVER 24HRS: Temp (24hrs), Av.3 C (99.2 F), Min:37.1 C (98.8 F), Max:37.5 C (99.5 F) CURRENT PULSE: Heart Rate: 101 CURRENT BLOOD PRESSURE: BP: 147/64 24HR BLOOD PRESSURE RANGE: Systolic (24hrs), Av , Min:147 , Max:162 ; Diastolic (24hrs), Av, Min:64, Max:81 24HR INTAKE/OUTPUT: Intake/Output Summary (Last 24 hours) at 01/29/2024 0705 Last data filed at 01/29/2024 0627 Gross per 24 hour Intake 622.5 ml Output 550 ml Net 72.5 ml Physical Exam: Appearance: NAD, awake, alert x3 but slow to respond, cooperative to exam Eyes: PERRLA, clear sclera ENT: hearing normal, no oral thrush, no erythema or exudate on hard or soft palate, tongue normal, dry mucus membranes Neck: supple, no JVD, no thyromegaly Respiratory: breathing unlabored, lungs CTA B/L anteriorly without w/r/r Cardiovascular: heart RRR without m/g/r, pedal pulses palpable Gastrointestinal: abdomen soft, non-tender, non-distended, normoactive bowel sounds. No masses or hernia. Musculoskeletal: normal muscle strength and tone, 1-2+ edema of BLE Skin: RLE red/warm Neurologic: symmetric strength and sensation Psychiatric: alert and oriented to person/place/time, judgement and insight normal, memory intact, normal mood and range of affect Data: LIVER PROFILE: Recent Labs 01/29/24 0536 AST 36 ALT 22 BILITOT 1.2 ALKPHOS 73 CBC: Recent Labs 01/28/24 1709 01/29/24 0536 WBC 10.8* 9.0 RBC 3.63* 3.31* HGB 11.8 10.5* HCT 35.1 32.5* MCV 96.7 98.2 RDW 13.6 13.7 PLT 105* 89* BMP: Recent Labs 01/28/24 1709 01/29/24 0536 NA 141 140 K 4.3 3.9 CL 107 109* CO2 21* 22 BUN 33* 30* CREATININE 1.70* 1.68* BNP: Recent Labs 01/28/24 1709 BNP 1,480* ABGs: No results found for: PH, PCO2, PO2, HCO3, O2SAT Nephro Labs: Recent Labs 01/28/24 1710 COLORU Yellow CLARITYU Turbid* GLUCOSEU Normal BLOODU 0.06* UROBILINOGEN 2* Imaging: reviewed Assessment: BARRY/ATN 2/2 suspected volume depletion from poor po intake in the setting of arb/diuresis vs UTI vs AUR (N17.0) CKD3a (N18.31) UTI (N39.0) 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 Please do not hesitate to call with any questions or concerns. Le Dobson APRN, CARDIOVASCULAR DISEASE SPECIALIST [facility], [facility] [phone] office Images from the original note were not included. Pharmacy Managed Vancomycin Dosing Service Consult Note Consult Date: 01/28/24 Patient Name: Mikel Winston Allergies: Codeine Age: 78 y.o. Sex: female Estimated body mass index is 33.06 kg/m as calculated from the following: Height as of this encounter: 1.676 m (5' 6). Weight as of this encounter: 92.9 kg (204 lb 12.9 oz). Lab Results Component Value Date CREATININE 1.70 (H) 01/28/2024 CREATININE 1.31 (H) 11/19/2022 BUN 33 (H) 01/28/2024 BUN 30 (H) 11/19/2022 WBC 10.8 (H) 01/28/2024 WBC 3.5 (L) 11/19/2022 Calculated CrCl: 39.6 mL/min Consulted By: Dr. Maurer Infectious Diagnosis: SSTI (AUC Goal 400-600 mg/L*hr) Antimicrobials: Patient recently received an antibiotic (last 12 hours) Date/Time Action Medication Dose Rate 01/28/24 1856 New Bag vancomycin in NS (Vancocin) IVPB 2,000 mg 2,000 mg 250 mL/hr 01/28/24 1725 New Bag cefTRIAXone (Rocephin) 1,000 mg in sodium chloride 0.9 % 50 mL IVPB Mini-Bag Plus 1,000 mg 100 mL/hr Assessment/Plan: Doses, serum creatinine, and vancomycin levels interfaced automatically to [employer] and data has been analyzed and interpreted. Start Vancomycin 1000 mg Q 24 hours based on patient age, weight, renal function, and infectious diagnosis (10.8 mg/kg). Predicted AUC = 520 mg/L*hr (goal 400-600 mg/L*hr) Will assess level on 01/28 and adjust as appropriate. Trend serum creatinine. Orders placed. Thank you for this consult. Please secure text or call with questions. DATE: 01/28/24 TIME: 9:33 PM Radha Limon RPh Available via Secure Chat documented in this encounter [facility] 01-31-2024 Note Formatting of this n ote is different from the original. Images from the original note were not included. Care Management Progress Note Therapy did evaluate and recommended snf level of care . SNF list printed and will discuss with patient. Continues to require oxygen at 2 liters with 97% saturation. Continues to spike intermittent temps. Remains on iv antibiotics and started on aerosols yesterday. Discharge plan is home with [facility] vs snf when medically stable. . Discharge Milestones and Delays Expected date/time: 02/01/2024 Expected discharge disposition: Home Health Services Discharge Milestones Place discharge order Complete med reconciliation Case mgmt discharge readiness Clinical Stability Diagnostic Workup Leather Goods Sales Representative Recommendations Facility Choice Selection Test Results PT discharge readiness OT discharge readiness INTERNET RETAILER discharge readiness Patient Education Complete Expected Discharge History Expected Date/Time Set By Reviewed At 02/01/2024 Jade Russell RN 01/30/2024 9:00 AM tcc est 01/31/2024 GARCIA Hallman CNP 01/28/2024 7:46 PM 01/31/2024 GARCIA Hallman CNP 01/28/2024 7:06 PM Length of Stay (Days): 3 GMLOS: 3.9 [facility] 01-31-2024 Note Formatting of this n ote is different from the original. Images from the original note were not included. Care Management Progress Note Therapy did evaluate and recommended snf level of care . SNF list printed and will discuss with patient. Continues to require oxygen at 2 liters with 97% saturation. Continues to spike intermittent temps. Remains on iv antibiotics and started on aerosols yesterday. Discharge plan is home with [facility] vs snf when medically stable. . Discharge Milestones and Delays Expected date/time: 02/01/2024 Expected discharge disposition: Home Health Services Discharge Milestones Place discharge order Complete med reconciliation Case mgmt discharge readiness Clinical Stability Diagnostic Workup Leather Goods Sales Representative Recommendations Facility Choice Selection Test Results PT discharge readiness OT discharge readiness INTERNET RETAILER discharge readiness Patient Education Complete Expected Discharge History Expected Date/Time Set By Reviewed At 02/01/2024 Jade Russell RN 01/30/2024 9:00 AM tcc est 01/31/2024 GARCIA Hallman CNP 01/28/2024 7:46 PM 01/31/2024 GARCIA Hallman CNP 01/28/2024 7:06 PM Length of Stay (Days): 3 GMLOS: 3.9 [facility] 01-31-2024 Plan of care note The patient is Unstable - High likelihood or risk of patient condition declining or worsening The patient's goals for the shift include rest The clinical goals for the shift include safety,breath easy. Over the shift, the patient did not make progress toward the following goals. Barriers to progression include disease progress. Recommendations to continue with current care. [facility] 01-30-2024 Note Formatting of this n ote might be different from the original. Continuing to await therapy evals and recommendations. [facility] 01-30-2024 Note Formatting of this n ote might be different from the original. Continuing to await therapy evals and recommendations. T [facility] 01-30-2024 Note Formatting of this n ote might be different from the original. Legal Research Analyst following case for Discharge Needs. T [facility] 01-30-2024 Note Formatting of this n ote might be different from the original. Legal Research Analyst following case for Discharge Needs. [facility] 01-30-2024 Note Formatting of this n ote is different from the original. Images from the original note were not included. Care Management Progress Note US of lower ext pending for this morning. Urine culture pending. Remains on iv antibiotics. Pt/ot ordered and pending. Discharge plan is pending therapy evals and recommendations, wound care and antibiotic needs. Tentative discharge plan is home with [facility] when medically stable.. Discharge Milestones and Delays Expected date/time: 01/31/2024 Expected discharge disposition: Home or Self Care Discharge Milestones Place discharge order Complete med reconciliation Case mgmt discharge readiness Clinical Stability Diagnostic Workup Leather Goods Sales Representative Recommendations Facility Choice Selection Test Results PT discharge readiness OT discharge readiness INTERNET RETAILER discharge readiness Patient Education Complete Expected Discharge History Expected Date/Time Set By Reviewed At 01/31/2024 GARCIA Hallman CNP 01/28/2024 7:46 PM 01/31/2024 GARCIA Hlalman CNP 01/28/2024 7:06 PM Length of Stay (Days): 2 GMLOS: No GMLOS Documented [facility] 01-30-2024 Note Formatting of this n ote is different from the original. Images from the original note were not included. Care Management Progress Note US of lower ext pending for this morning. Urine culture pending. Remains on iv antibiotics. Pt/ot ordered and pending. Discharge plan is pending therapy evals and recommendations, wound care and antibiotic needs. Tentative discharge plan is home with [facility] when medically stable.. Discharge Milestones and Delays Expected date/time: 01/31/2024 Expected discharge disposition: Home or Self Care Discharge Milestones Place discharge order Complete med reconciliation Case mgmt discharge readiness Clinical Stability Diagnostic Workup Leather Goods Sales Representative Recommendations Facility Choice Selection Test Results PT discharge readiness OT discharge readiness INTERNET RETAILER discharge readiness Patient Education Complete Expected Discharge History Expected Date/Time Set By Reviewed At 01/31/2024 GARCIA Hallman CNP 01/28/2024 7:46 PM 01/31/2024 GARCIA Hallman CNP 01/28/2024 7:06 PM Length of Stay (Days): 2 GMLOS: No GMLOS Documented [facility] 01-30-2024 Plan of care note The patient is Moderately Unstable - Medium risk of patient condition declining or worsening The patient's goals for the shift include rest The clinical goals for the shift include safety Over the shift, the patient did demonstrate knowledge on the diagnosis and the treatment.She remains free from falls. [facility] 01-30-2024 Plan of care note The patient is Moderately Unstable - Medium risk of patient condition declining or worsening The patient's goals for the shift include rest The clinical goals for the shift include safety Over the shift, the patient did demonstrated knowledge on care and prognosis. [facility] 01-30-2024 Nurse Note 01/29/24 2350, Pt having SOB expiratory wheezing,I gave her a PRN P.O LASIX,Dr Morillo notified,he put an order for breathing treatment an chest x-ray. [facility] 01-29-2024 Note Formatting of this n ote might be different from the original. Care Managment Initial Assessment Date: 01/29/2024 Patient Name: Mikel Winston : 1945 Patient Information Source of Information: Patient Cognition/Language: WFL - Within Functional Limits Permission given to speak with patient community relations representative/caregiver as indicated: Confirmation of Payer with patient/family: Yes Payer Name: [place] [employer] / [facility]3] : No Confirmation of Primary Care Physician: Confirmed PCP Name: Lalit Sawant Seen in last 2 years?: Yes Primary Caregiver: Self If assistance needed, confirmed caregiver ready, willing and able to care for patient at discharge: Yes Confirmed with: Per patient, her children are ready, willing, and able to assist when needed. Living Arrangements Current Residence: Apartment Number of Floors 1 Number of Entry Steps: (level) Bed/Bath Levels: Both first floor Facility: Facility Name: Plan to Return: Yes Lives with: Alone Support Systems: Children, Family members Activities of Daily Living Ambulation: Assistance (walker) Bathing/Dressing: Independent Elimination/Continence/Toileting: Independent Feeding: Independent Who Assists with Activities of Daily Living: Instrumental Activities of Daily Living Prescription Coverage: Yes [facility] Medication Management: Independent Transportation/Shopping: Assistance Provider Transportation/Shopping Assistance Provider Name: Children Transportation Mode: Car Needs Assistance with Transportation at Discharge: No Meal Preparation: Independent Laundry/Cleaning: Independent Finances/Bill Paying: Independent Communication: Independent Types of Care Services/Equipment Utilized Care Services: (n/a) Dialysis Type: NA Durable Medical Equipment: Cane, Walker, Shower Seat, Glucometer Patient's Goal/Discharge Plan Patient expects to be discharged to: Home Discharge Planning Actions: Continue to follow, No needs identified Patient's Choice Rights and [employer] and Collaborative Relationships Disclosed as Indicated for Post-Acute Care: Interdisciplinary Team Engagement: Social Work Referral for: Additional Information: Assessment information taken from both patient conversation and EPIC chart review. Spoke to patient at bedside. Introduced self and role. Reason for admission: presents with altered mental status - daughter states she has hx of UTIs and has had confusion like this with those in the past. She was found to have a urinary tract infection the patient was given Rocephin and vancomycin. Also found to have increasing redness in right leg determined to be cellulitis. Consults: Nephro PT/OT: pending - pt with pending BLE duplex. Will await results and potential anticoagulation needs prior to initiation of therapy. Current DCP: TBD - pending therapy evals Rapid Rounding updated. Discharge planning needs discussed. Patient denied any needs. Patient verbalizes understanding and is in agreement with POC. States family is ready, willing, and able to assist as needed. TCC will continue to follow. Jalen Pham RN [facility] 01-29-2024 Note Formatting of this n ote might be different from the original. Care Managment Initial Assessment Date: 01/29/2024 Patient Name: Mikel Winston : 1945 Patient Information Source of Information: Patient Cognition/Language: WFL - Within Functional Limits Permission given to speak with patient community relations representative/caregiver as indicated: Confirmation of Payer with patient/family: Yes Payer Name: [employer] / [facility]3] : No Confirmation of Primary Care Physician: Confirmed PCP Name: Lalit Sawant Seen in last 2 years?: Yes Primary Caregiver: Self If assistance needed, confirmed caregiver ready, willing and able to care for patient at discharge: Yes Confirmed with: Per patient, her children are ready, willing, and able to assist when needed. Living Arrangements Current Residence: Apartment Number of Floors 1 Number of Entry Steps: (level) Bed/Bath Levels: Both first floor Facility: Facility Name: Plan to Return: Yes Lives with: Alone Support Systems: Children, Family members Activities of Daily Living Ambulation: Assistance (walker) Bathing/Dressing: Independent Elimination/Continence/Toileting: Independent Feeding: Independent Who Assists with Activities of Daily Living: Instrumental Activities of Daily Living Prescription Coverage: Yes [facility] Medication Management: Independent Transportation/Shopping: Assistance Provider Transportation/Shopping Assistance Provider Name: Children Transportation Mode: Car Needs Assistance with Transportation at Discharge: No Meal Preparation: Independent Laundry/Cleaning: Independent Finances/Bill Paying: Independent Communication: Independent Types of Care Services/Equipment Utilized Care Services: (n/a) Dialysis Type: NA Durable Medical Equipment: Cane, Walker, Shower Seat, Glucometer Patient's Goal/Discharge Plan Patient expects to be discharged to: Home Discharge Planning Actions: Continue to follow, No needs identified Patient's Choice Rights and [employer] and Collaborative Relationships Disclosed as Indicated for Post-Acute Care: Interdisciplinary Team Engagement: Social Work Referral for: Additional Information: Assessment information taken from both patient conversation and EPIC chart review. Spoke to patient at bedside. Introduced self and role. Reason for admission: presents with altered mental status - daughter states she has hx of UTIs and has had confusion like this with those in the past. She was found to have a urinary tract infection the patient was given Rocephin and vancomycin. Also found to have increasing redness in right leg determined to be cellulitis. Consults: Nephro PT/OT: pending - pt with pending BLE duplex. Will await results and potential anticoagulation needs prior to initiation of therapy. Current DCP: TBD - pending therapy evals Rapid Rounding updated. Discharge planning needs discussed. Patient denied any needs. Patient verbalizes understanding and is in agreement with POC. States family is ready, willing, and able to assist as needed. TCC will continue to follow. Jalen Pham RN T [facility] 01-29-2024 Consult note Associated Order (s): IP CONSULT TO NEPHROLOGY [facility] Consult Note Reason for Consult: BARRY/CKD3a Requesting Physician: Sukhi Maurer MD Chief Complaint: Chief Complaint Patient presents with Urinary Problem Family called pt today and she seemed a little off like she does when she has a UTI. Most recent UTI was a month ago. PT has frequent UTI's History of Present Ilness: Mikel is a 78 y.o. female with past medical history below who presented with chief complaint listed above. Patient is disoriented and was brought to the ED for evaluation, history mostly obtained from the ED physician and the daughter, she lives by herself, family noticed her being more confused she also has increasing redness in the right leg, she has a history of frequent UTIs, most recent UTI was a month ago, she is a type II diabetic, urine in November grew Citrobacter. Nephrology is asked to see the patient for BARRY/CKD3a. Scr is currently 1.68, previously 1.70 and has a baseline of ~1.3. No known use of nsaids. She takes losartan and lasix daily. UOP ok. No relative hypotension. No evidence of BERTA. PO intake has been fair, does not think she drinks enough fluids. Some nausea, denies V/D. Past Medical History: Past Medical History: Diagnosis Date CAD (coronary artery disease) Cirrhosis of liver (HCC) Diabetes mellitus (HCC) Hypertension Osteoporosis Thyroid disease Past Surgical History: Past Surgical History: Procedure Laterality Date APPENDECTOMY CHOLECYSTECTOMY CORONARY ARTERY BYPASS GRAFT TOTAL KNEE ARTHROPLASTY Right TUBAL LIGATION Home Medications: No current facility-administered medications on file prior to encounter. Current Outpatient Medications on File Prior to Encounter Medication Sig Dispense Refill alpha tocopherol (Vitamin E) 100 units capsule Take 100 Units by mouth daily. aspirin 81 MG EC tablet Take 81 mg by mouth daily. atenolol (Tenormin) 50 MG tablet Take 50 mg by mouth daily. Cholecalciferol (Vitamin D) 125 MCG (5000 UT) capsule Take 5,000 Units by mouth daily. ferrous sulfate 325 (65 Fe) MG tablet Take 325 mg by mouth daily (with breakfast). furosemide (Lasix) 20 MG tablet Take 20 mg by mouth daily. levothyroxine (Synthroid, Levoxyl) 50 MCG tablet TAKE 1 TABLET BY MOUTH DAILY 30 tablet 3 losartan (Cozaar) 25 MG tablet Take 25 mg by mouth daily. metFORMIN (Glucophage) 500 MG tablet Take 500 mg by mouth in the morning and 500 mg in the evening. Take with meals. mirabegron ER (Myrbetriq) 25 MG 24 hr tablet Take 25 mg by mouth Nightly. Do not crush, chew, or split. omeprazole (PriLOSEC) [address] capsule Take 40 mg by mouth every morning (before breakfast). Do not crush or chew. potassium chloride CR (Klor-Con M10) 10 MEQ ER tablet Take 10 mEq by mouth daily. Do not crush or chew. rosuvastatin (Crestor) 20 MG tablet Take 1 tablet (20 mg) by mouth daily. 90 tablet 0 Allergies: Codeine Social History: Social History Socioeconomic History Marital status: Spouse name: Not on file Number of children: Not on file Years of education: Not on file Highest education level: Not on file Occupational History Not on file Tobacco Use Smoking status: Never Smokeless tobacco: Never Substance and Sexual Activity Alcohol use: No Drug use: No Sexual activity: Not Currently Other Topics Concern Not on file Social History Narrative Not on file Social Determinants of Health Financial Resource Strain: Medium Risk (01/28/2024) Overall Financial Resource Strain (CARDIA) Difficulty of Paying Living Expenses: Somewhat hard Food Insecurity: Food Insecurity Present (01/28/2024) Hunger Vital Sign Worried About Running Out of Food in the Last Year: Sometimes true Ran Out of Food in the Last Year: Sometimes true Transportation Needs: Unmet Transportation Needs (01/28/2024) PRAPARE - Transportation Lack of Transportation (Medical): Yes Lack of Transportation (Non-Medical): Yes Physical Activity: Insufficiently Active (01/28/2024) Exercise Vital Sign Days of Exercise per Week: 2 days Minutes of Exercise per Session: 10 min Stress: Stress Concern Present (01/28/2024) [place] [employer] - Occupational Stress Questionnaire Feeling of Stress : To some extent Social Connections: Moderately Integrated (01/28/2024) Social Connection and Isolation Panel [NHANES] Frequency of Communication with Friends and Family: More than three times a week Frequency of Social Gatherings with Friends and Family: More than three times a week Attends Nondenominational Services: More than 4 times per year Active Member of Clubs or Organizations: No Attends Club or Organization Meetings: Never Marital Status: Intimate Partner Violence: Not At Risk (01/28/2024) Humiliation, Afraid, Rape, and Kick questionnaire Fear of Current or Ex-Partner: No Emotionally Abused: No Physically Abused: No Sexually Abused: No Housing Stability: Low Risk (01/28/2024) Housing Stability Vital Sign Unable to Pay for Housing in the Last Year: No Number of Times Moved in the Last Year: 1 Homeless in the Last Year: No Family History: Family History Problem Relation Name Age of Onset Stroke Father's Brother Diabetes Father Mental illness Mother Coronary artery disease Brother Review of Systems: Pertinent positives stated above in HPI. All other systems were reviewed and were negative. Physical exam: Constitutional: Vitals: 01/28/24 1857 01/28/24 1949 01/28/24202701/28/24 2130 BP: (!) 155/81 147/64 Pulse: 87 101 Resp: 18 21 Temp: 37.5 C (99.5 F) TempSrc: Temporal SpO2: 99% 99% Weight: 92.9 kg (204 lb 12.9 oz) Height: 1.676 m (5' 6) CURRENT TEMPERATURE: Temp: 37.5 C (99.5 F) MAXIMUM TEMPERATURE OVER 24HRS: Temp (24hrs), Av.3 C (99.2 F), Min:37.1 C (98.8 F), Max:37.5 C (99.5 F) CURRENT PULSE: Heart Rate: 101 CURRENT BLOOD PRESSURE: BP: 147/64 24HR BLOOD PRESSURE RANGE: Systolic (24hrs), Av , Min:147 , Max:162 ; Diastolic (24hrs), Av, Min:64, Max:81 24HR INTAKE/OUTPUT: Intake/Output Summary (Last 24 hours) at 01/29/2024 0705 Last data filed at 01/29/2024 0627 Gross per 24 hour Intake 622.5 ml Output 550 ml Net 72.5 ml Physical Exam: Appearance: NAD, awake, alert x3 but slow to respond, cooperative to exam Eyes: PERRLA, clear sclera ENT: hearing normal, no oral thrush, no erythema or exudate on hard or soft palate, tongue normal, dry mucus membranes Neck: supple, no JVD, no thyromegaly Respiratory: breathing unlabored, lungs CTA B/L anteriorly without w/r/r Cardiovascular: heart RRR without m/g/r, pedal pulses palpable Gastrointestinal: abdomen soft, non-tender, non-distended, normoactive bowel sounds. No masses or hernia. Musculoskeletal: normal muscle strength and tone, 1-2+ edema of BLE Skin: RLE red/warm Neurologic: symmetric strength and sensation Psychiatric: alert and oriented to person/place/time, judgement and insight normal, memory intact, normal mood and range of affect Data: LIVER PROFILE: Recent Labs 01/29/24 0536 AST 36 ALT 22 BILITOT 1.2 ALKPHOS 73 CBC: Recent Labs 01/28/24 1709 01/29/24 0536 WBC 10.8* 9.0 RBC 3.63* 3.31* HGB 11.8 10.5* HCT 35.1 32.5* MCV 96.7 98.2 RDW 13.6 13.7 PLT 105* 89* BMP: Recent Labs 01/28/24 1709 01/29/24 0536 NA 141 140 K 4.3 3.9 CL 107 109* CO2 21* 22 BUN 33* 30* CREATININE 1.70* 1.68* BNP: Recent Labs 01/28/24 1709 BNP 1,480* ABGs: No results found for: PH, PCO2, PO2, HCO3, O2SAT Nephro Labs: Recent Labs 01/28/24 1710 COLORU Yellow CLARITYU Turbid* GLUCOSEU Normal BLOODU 0.06* UROBILINOGEN 2* Imaging: reviewed Assessment: BARRY/ATN 2/2 suspected volume depletion from poor po intake in the setting of arb/diuresis vs UTI vs AUR (N17.0) CKD3a (N18.31) UTI (N39.0) 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 Please do not hesitate to call with any questions or concerns. Le Dobson APRN, CARDIOVASCULAR DISEASE SPECIALIST [facility] [employer], [facility] [phone] office [facility] 01-28-2024 Consult note Formatting of th is note is different from the original. Images from the original note were not included. Pharmacy Managed Vancomycin Dosing Service Consult Note Consult Date: 01/28/24 Patient Name: Mikel Winston Allergies: Codeine Age: 78 y.o. Sex: female Estimated body mass index is 33.06 kg/m as calculated from the following: Height as of this encounter: 1.676 m (5' 6). Weight as of this encounter: 92.9 kg (204 lb 12.9 oz). Lab Results Component Value Date CREATININE 1.70 (H) 01/28/2024 CREATININE 1.31 (H) 11/19/2022 BUN 33 (H) 01/28/2024 BUN 30 (H) 11/19/2022 WBC 10.8 (H) 01/28/2024 WBC 3.5 (L) 11/19/2022 Calculated CrCl: 39.6 mL/min Consulted By: Dr. Maurer Infectious Diagnosis: SSTI (AUC Goal 400-600 mg/L*hr) Antimicrobials: Patient recently received an antibiotic (last 12 hours) Date/Time Action Medication Dose Rate 01/28/24 1856 New Bag vancomycin in NS (Vancocin) IVPB 2,000 mg 2,000 mg 250 mL/hr 01/28/24 1725 New Bag cefTRIAXone (Rocephin) 1,000 mg in sodium chloride 0.9 % 50 mL IVPB Mini-Bag Plus 1,000 mg 100 mL/hr Assessment/Plan: Doses, serum creatinine, and vancomycin levels interfaced automatically to [employer] and data has been analyzed and interpreted. Start Vancomycin 1000 mg Q 24 hours based on patient age, weight, renal function, and infectious diagnosis (10.8 mg/kg). Predicted AUC = 520 mg/L*hr (goal 400-600 mg/L*hr) Will assess level on 01/28 and adjust as appropriate. Trend serum creatinine. Orders placed. Thank you for this consult. Please secure text or call with questions. DATE: 01/28/24 TIME: 9:33 PM Radha Limon RPh Available via Secure Chat T [facility] 01-28-2024 History and physical note Images from the original note were not included. Attending History and Physical Admit Date: 01/28/2024 PCP: KOMAL COHN DO CHIEF COMPLAINT: Acute confusional state Reason for Admission: Delirium, possible UTI right leg cellulitis History Obtained From: ED physician and the daughter Arnel Forte over the phone HISTORY OF PRESENT ILLNESS: Mikel is a 78 y.o. female with past medical history below who presents with chief complaint listed above. Patient is disoriented and was brought to the ED for evaluation, history mostly obtained from the ED physician and the daughter, she lives by herself, family noticed her being more confused she also has increasing redness in the right leg, she has a history of frequent UTIs, most recent UTI was a month ago, she is a type II diabetic, urine in November grew Citrobacter with less colonies Labs done in the emergency department and interpreted by me, WBC 10.8, H&H 11.8/35.1, platelets 105, CRP added Sodium 141, potassium 4.3, chloride 107, carbon dioxide 21, BUN/creatinine 33/1.7, Serum glucose 122 Urine analysis showed 26-50 WBC and many bacteria Right leg is slightly tender she winces in pain along with redness see pictures, she was given ceftriaxone and vancomycin in the ED, CT head was negative Will admit for further evaluation and management. Past Medical History: Past Medical History: Diagnosis Date CAD (coronary artery disease) Cirrhosis of liver (HCC) Diabetes mellitus (HCC) Hypertension Osteoporosis Thyroid disease Past Surgical History: Past Surgical History: Procedure Laterality Date APPENDECTOMY CHOLECYSTECTOMY CORONARY ARTERY BYPASS GRAFT TOTAL KNEE ARTHROPLASTY Right TUBAL LIGATION Social History: Social History Socioeconomic History Marital status: Spouse name: Not on file Number of children: Not on file Years of education: Not on file Highest education level: Not on file Occupational History Not on file Tobacco Use Smoking status: Never Smokeless tobacco: Never Substance and Sexual Activity Alcohol use: No Drug use: No Sexual activity: Not on file Other Topics Concern Not on file Social History Narrative Not on file Social Determinants of Health Financial Resource Strain: Not on file Food Insecurity: Not on file Transportation Needs: Unmet Transportation Needs (03/08/2022) [facility] [place] [facility] [place] [facility] PRAPARE - Transportation Lack of Transportation (Medical): Yes Lack of Transportation (Non-Medical): Yes Physical Activity: Not on file Stress: Not on file Social Connections: Not on file Intimate Partner Violence: Not on file Housing Stability: Not on file Family History: Family History Problem Relation Name Age of Onset Stroke Father's Brother Diabetes Father Mental illness Mother Coronary artery disease Brother Medications Prior to Admission: No current facility-administered medications on file prior to encounter. Current Outpatient Medications on File Prior to Encounter Medication Sig Dispense Refill alpha tocopherol (Vitamin E) 100 units capsule Take 100 Units by mouth daily. aspirin 81 MG EC tablet Take 81 mg by mouth daily. atenolol (Tenormin) 50 MG tablet Take 50 mg by mouth daily. Cholecalciferol (Vitamin D) 125 MCG (5000 UT) capsule Take 5,000 Units by mouth daily. ferrous sulfate 325 (65 Fe) MG tablet Take 325 mg by mouth daily (with breakfast). furosemide (Lasix) 20 MG tablet Take 20 mg by mouth daily. levothyroxine (Synthroid, Levoxyl) 50 MCG tablet TAKE 1 TABLET BY MOUTH DAILY 30 tablet 3 losartan (Cozaar) 25 MG tablet Take 25 mg by mouth daily. metFORMIN (Glucophage) 500 MG tablet Take 500 mg by mouth in the morning and 500 mg in the evening. Take with meals. mirabegron ER (Myrbetriq) 25 MG 24 hr tablet Take 25 mg by mouth Nightly. Do not crush, chew, or split. omeprazole (PriLOSEC) [address] capsule Take 40 mg by mouth every morning (before breakfast). Do not crush or chew. potassium chloride CR (Klor-Con M10) 10 MEQ ER tablet Take 10 mEq by mouth daily. Do not crush or chew. rosuvastatin (Crestor) 20 MG tablet Take 1 tablet (20 mg) by mouth daily. 90 tablet 0 Allergies: Allergies Allergen Reactions Codeine Hives REVIEW OF SYSTEMS: Constitutional: Negative for fever, chills, positive for activity change and negative for unexpected weight change. HEENT: Negative for congestion, postnasal drip and sneezing. Eyes: Negative for itching and visual disturbance. Respiratory: Negative for apnea, cough, choking, chest tightness, shortness of breath, wheezing and stridor. Cardiovascular: Negative for chest pain. Gastrointestinal: Negative for nausea, vomiting, abdominal pain, diarrhea and blood in stool. Genitourinary: Negative for dysuria, frequency and flank pain. Musculoskeletal: Negative for myalgias and joint swelling. Skin: Positive for rash / right lower extremity swelling neurological: Negative for dizziness, tremors, seizures, syncope, facial asymmetry, speech difficulty, weakness, numbness and headaches. Hematological: Negative for adenopathy. Psychiatric/Behavioral: Negative for suicidal ideas, behavioral problems, self-injury and dysphoric mood. Vitals: BP (!) 155/81 Pulse 87 Temp 37.1 C (98.8 F) (Oral) Resp 18 SpO2 99% BMI Classification: Morbidly Obese (>40.0) Pulse Ox: SpO2 Av % Min: 99 % Max: 99 % Supplemental O2: PHYSICAL EXAM: Physical Exam Constitutional: Appearance: She is obese. She is ill-appearing. Cardiovascular: Rate and Rhythm: Normal rate and regular rhythm. Pulses: Normal pulses. Heart sounds: S1 normal and S2 normal. Murmur heard. Systolic murmur is present with a grade of 2/6. Abdominal: General: Bowel sounds are normal. Palpations: Abdomen is soft. Musculoskeletal: Right lower le+ Pitting Edema present. Left lower le+ Pitting Edema present. Skin: Findings: Erythema and rash present. DATA: CBC: Recent Labs 01/28/24 1709 WBC 10.8* RBC 3.63* HGB 11.8 HCT 35.1 MCV 96.7 RDW 13.6 PLT 105* BMP: Recent Labs 01/28/24 1709 NA 141 K 4.3 CL 107 CO2 21* BUN 33* CREATININE 1.70* GLUCOSE 122* CALCIUM 10.2 ANIONGAP 13 LIVER PROFILE:No results for input(s): AST, ALT, BILITOT, ALKPHOS, PROT in the last 72 hours. No lab exists for component: LABALBU PT/INR: No results for input(s): PROTIME, INR in the last 72 hours. CARDIAC ENZYMES: Recent Labs 01/28/24 1709 TROPONINI 0.015 Procalcitonin: No results found for: PROCAL Urine Culture: Results for orders placed or performed during the hospital encounter of 11/17/22 Urine culture Specimen: Urine, Clean Catch Result Value Ref Range Urine Culture 50,000-90,000 CFU/mL Citrobacter werkmanii (A) Susceptibility Citrobacter werkmanii - BROTH MICRODILUTION Amoxicillin / Clavulanate Resistant Aztreonam <=1 Susceptible ug/ml Cefazolin Resistant Cefepime <=1 Susceptible ug/ml Ceftriaxone <=1 Susceptible ug/ml Ciprofloxacin <=0.25 Susceptible ug/ml Gentamicin <=1 Susceptible ug/ml Meropenem <=0.25 Susceptible ug/ml Nitrofurantoin <=16 Susceptible ug/ml Piperacillin / Tazobactam <=4 Susceptible ug/ml Trimethoprim / Sulfamethoxazole <=20 Susceptible ug/ml COVID-19 PCR: No results for input(s): COVID19 in the last 72 hours. I reviewed: [x] laboratory results [x] radiographic results At the time of today's encounter. Pt was advised of the results. Assessment Discussed management with the ED provider and agree with hospitalization. Acute, acute on chronic, unstable/uncontrolled chronic problems/diagnoses: Acute confusional state/delirium-due to combination of possible UTI and right lower extremity cellulitis Possible UTI-urine shows pyuria and many bacteria Right lower extremity cellulitis Mild non-anion gap metabolic acidosis Obesity Type 2 diabetes mellitus with hyperglycemia on metformin at home Acute kidney injury on chronic kidney disease stage IIIA (creatinine 1.3 in November worsened to 1.7 today) Diabetic nephropathy Mild thrombocytopenia-history of cirrhosis of liver Stable chronic problems affecting care, new non-acute diagnoses: Past Medical History: Diagnosis Date CAD (coronary artery disease) Cirrhosis of liver (HCC) Diabetes mellitus (HCC) Hypertension Osteoporosis Thyroid disease Plan As a result of the above findings & factors, the following mgmt was pursued: -Admit the patient to medical floor, continue ceftriaxone and vancomycin to cover for UTI and cellulitis, no open wounds to culture Follow urine culture Check HbA1c, monitor blood sugars and treat with sliding scale insulin, hold losartan, Lasix and metformin due to renal dysfunction, Lasix as needed, slow IV fluids Nephrology consult in a.m. - am labs, replace lytes prn - PT/OT/CM/SW - delirium precautions: increase activity - DVT prophylaxis: enoxaparin and encourage ambulation Complexity: Risk: Advance Directive: Prior Anticipated Discharge - Date - - Location - - Pending the following - Total time spent (which include face to face and non face to face encounters) : minutes. Toxic drug monitoring/narrow therapeutic index drug monitoring : # Drug name : Lovenox, vancomycin # Route administered : Subcutaneous, # Method of monitoring : CBC/platelets, BMP Extended Emergency Contact Information Primary Emergency Contact: Arnel Forte Mobile Relation: Child Secondary Emergency Contact: Russell Winston Mobile Relation: Child [employer] Mikel Winston : 1945 Primary Care Physician: KOMAL COHN DO The patient and/or family/surrogate voluntarily agreed to participate in ACP services. Patient s cognitive capacity: Code Status: [_] [FULL CODE - Continue all advanced life support: CPR,intubation,invasive procedures] [*_] [DNR-CCA - DO NOT do CPR, intubation] [_] [DNR-HUNTER GUIDE - Comfort care only] [_] DNR form [was/was not] signed Summary of discussion: The patient health care POA/ surrogate is the following: Her daughter Arnel Forte, had a long discussion, per daughter patient does not want any resuscitation measures . [Condition that instigated the ACP on this DOS, relevant PMH, functional status, goals of care, and whom this was discussed with including names and relationship to the patient, and any relevant advance care documentation discussion] I answered all the patient/family questions that I could within the range and scope of the current medical situation. We discussed the medical conditions, risks, benefits, outcomes, and goals of care at this time for the patient's medical issues at hand in the face of the patient's chronic issues and current presentation. Total time spent: minutes were spent discussing the patient's resuscitation status, advance care planning, and end of life care, with patient and/or family/surrogate. Sukhi Maurer MD Division of Hospitalist Medicine [facility] Work Phone: 01-28-2024 Note [facility] 01-28-2024 History and physical note Images from the original note were not included. Attending History and Physical Admit Date: 01/28/2024 PCP: KOMAL COHN DO CHIEF COMPLAINT: Acute confusional state Reason for Admission: Delirium, possible UTI right leg cellulitis History Obtained From: ED physician and the daughter Arnel Forte over the phone HISTORY OF PRESENT ILLNESS: Mikel is a 78 y.o. female with past medical history below who presents with chief complaint listed above. Patient is disoriented and was brought to the ED for evaluation, history mostly obtained from the ED physician and the daughter, she lives by herself, family noticed her being more confused she also has increasing redness in the right leg, she has a history of frequent UTIs, most recent UTI was a month ago, she is a type II diabetic, urine in November grew Citrobacter with less colonies Labs done in the emergency department and interpreted by me, WBC 10.8, H&H 11.8/35.1, platelets 105, CRP added Sodium 141, potassium 4.3, chloride 107, carbon dioxide 21, BUN/creatinine 33/1.7, Serum glucose 122 Urine analysis showed 26-50 WBC and many bacteria Right leg is slightly tender she winces in pain along with redness see pictures, she was given ceftriaxone and vancomycin in the ED, CT head was negative Will admit for further evaluation and management. Past Medical History: Past Medical History: Diagnosis Date CAD (coronary artery disease) Cirrhosis of liver (HCC) Diabetes mellitus (HCC) Hypertension Osteoporosis Thyroid disease Past Surgical History: Past Surgical History: Procedure Laterality Date APPENDECTOMY CHOLECYSTECTOMY CORONARY ARTERY BYPASS GRAFT TOTAL KNEE ARTHROPLASTY Right TUBAL LIGATION Social History: Social History Socioeconomic History Marital status: Spouse name: Not on file Number of children: Not on file Years of education: Not on file Highest education level: Not on file Occupational History Not on file Tobacco Use Smoking status: Never Smokeless tobacco: Never Substance and Sexual Activity Alcohol use: No Drug use: No Sexual activity: Not on file Other Topics Concern Not on file Social History Narrative Not on file Social Determinants of Health Financial Resource Strain: Not on file Food Insecurity: Not on file Transportation Needs: Unmet Transportation Needs (03/08/2022) Received from [facility] - Transportation Lack of Transportation (Medical): Yes Lack of Transportation (Non-Medical): Yes Physical Activity: Not on file Stress: Not on file Social Connections: Not on file Intimate Partner Violence: Not on file Housing Stability: Not on file Family History: Family History Problem Relation Name Age of Onset Stroke Father's Brother Diabetes Father Mental illness Mother Coronary artery disease Brother Medications Prior to Admission: No current facility-administered medications on file prior to encounter. Current Outpatient Medications on File Prior to Encounter Medication Sig Dispense Refill alpha tocopherol (Vitamin E) 100 units capsule Take 100 Units by mouth daily. aspirin 81 MG EC tablet Take 81 mg by mouth daily. atenolol (Tenormin) 50 MG tablet Take 50 mg by mouth daily. Cholecalciferol (Vitamin D) 125 MCG (5000 UT) capsule Take 5,000 Units by mouth daily. ferrous sulfate 325 (65 Fe) MG tablet Take 325 mg by mouth daily (with breakfast). furosemide (Lasix) 20 MG tablet Take 20 mg by mouth daily. levothyroxine (Synthroid, Levoxyl) 50 MCG tablet TAKE 1 TABLET BY MOUTH DAILY 30 tablet 3 losartan (Cozaar) 25 MG tablet Take 25 mg by mouth daily. metFORMIN (Glucophage) 500 MG tablet Take 500 mg by mouth in the morning and 500 mg in the evening. Take with meals. mirabegron ER (Myrbetriq) 25 MG 24 hr tablet Take 25 mg by mouth Nightly. Do not crush, chew, or split. omeprazole (PriLOSEC) [address] capsule Take 40 mg by mouth every morning (before breakfast). Do not crush or chew. potassium chloride CR (Klor-Con M10) 10 MEQ ER tablet Take 10 mEq by mouth daily. Do not crush or chew. rosuvastatin (Crestor) 20 MG tablet Take 1 tablet (20 mg) by mouth daily. 90 tablet 0 Allergies: Allergies Allergen Reactions Codeine Hives REVIEW OF SYSTEMS: Constitutional: Negative for fever, chills, positive for activity change and negative for unexpected weight change. HEENT: Negative for congestion, postnasal drip and sneezing. Eyes: Negative for itching and visual disturbance. Respiratory: Negative for apnea, cough, choking, chest tightness, shortness of breath, wheezing and stridor. Cardiovascular: Negative for chest pain. Gastrointestinal: Negative for nausea, vomiting, abdominal pain, diarrhea and blood in stool. Genitourinary: Negative for dysuria, frequency and flank pain. Musculoskeletal: Negative for myalgias and joint swelling. Skin: Positive for rash / right lower extremity swelling neurological: Negative for dizziness, tremors, seizures, syncope, facial asymmetry, speech difficulty, weakness, numbness and headaches. Hematological: Negative for adenopathy. Psychiatric/Behavioral: Negative for suicidal ideas, behavioral problems, self-injury and dysphoric mood. Vitals: BP (!) 155/81 Pulse 87 Temp 37.1 C (98.8 F) (Oral) Resp 18 SpO2 99% BMI Classification: Morbidly Obese (>40.0) Pulse Ox: SpO2 Av % Min: 99 % Max: 99 % Supplemental O2: PHYSICAL EXAM: Physical Exam Constitutional: Appearance: She is obese. She is ill-appearing. Cardiovascular: Rate and Rhythm: Normal rate and regular rhythm. Pulses: Normal pulses. Heart sounds: S1 normal and S2 normal. Murmur heard. Systolic murmur is present with a grade of 2/6. Abdominal: General: Bowel sounds are normal. Palpations: Abdomen is soft. Musculoskeletal: Right lower le+ Pitting Edema present. Left lower le+ Pitting Edema present. Skin: Findings: Erythema and rash present. DATA: CBC: Recent Labs 01/28/24 1709 WBC 10.8* RBC 3.63* HGB 11.8 HCT 35.1 MCV 96.7 RDW 13.6 PLT 105* BMP: Recent Labs 01/28/24 1709 NA 141 K 4.3 CL 107 CO2 21* BUN 33* CREATININE 1.70* GLUCOSE 122* CALCIUM 10.2 ANIONGAP 13 LIVER PROFILE:No results for input(s): AST, ALT, BILITOT, ALKPHOS, PROT in the last 72 hours. No lab exists for component: LABALBU PT/INR: No results for input(s): PROTIME, INR in the last 72 hours. CARDIAC ENZYMES: Recent Labs 01/28/24 1709 TROPONINI 0.015 Procalcitonin: No results found for: PROCAL Urine Culture: Results for orders placed or performed during the hospital encounter of 11/17/22 Urine culture Specimen: Urine, Clean Catch Result Value Ref Range Urine Culture 50,000-90,000 CFU/mL Citrobacter werkmanii (A) Susceptibility Citrobacter werkmanii - BROTH MICRODILUTION Amoxicillin / Clavulanate Resistant Aztreonam <=1 Susceptible ug/ml Cefazolin Resistant Cefepime <=1 Susceptible ug/ml Ceftriaxone <=1 Susceptible ug/ml Ciprofloxacin <=0.25 Susceptible ug/ml Gentamicin <=1 Susceptible ug/ml Meropenem <=0.25 Susceptible ug/ml Nitrofurantoin <=16 Susceptible ug/ml Piperacillin / Tazobactam <=4 Susceptible ug/ml Trimethoprim / Sulfamethoxazole <=20 Susceptible ug/ml COVID-19 PCR: No results for input(s): COVID19 in the last 72 hours. I reviewed: [x] laboratory results [x] radiographic results At the time of today's encounter. Pt was advised of the results. Assessment Discussed management with the ED provider and agree with hospitalization. Acute, acute on chronic, unstable/uncontrolled chronic problems/diagnoses: Acute confusional state/delirium-due to combination of possible UTI and right lower extremity cellulitis Possible UTI-urine shows pyuria and many bacteria Right lower extremity cellulitis Mild non-anion gap metabolic acidosis Obesity Type 2 diabetes mellitus with hyperglycemia on metformin at home Acute kidney injury on chronic kidney disease stage IIIA (creatinine 1.3 in November worsened to 1.7 today) Diabetic nephropathy Mild thrombocytopenia-history of cirrhosis of liver Stable chronic problems affecting care, new non-acute diagnoses: Past Medical History: Diagnosis Date CAD (coronary artery disease) Cirrhosis of liver (HCC) Diabetes mellitus (HCC) Hypertension Osteoporosis Thyroid disease Plan As a result of the above findings & factors, the following mgmt was pursued: -Admit the patient to medical floor, continue ceftriaxone and vancomycin to cover for UTI and cellulitis, no open wounds to culture Follow urine culture Check HbA1c, monitor blood sugars and treat with sliding scale insulin, hold losartan, Lasix and metformin due to renal dysfunction, Lasix as needed, slow IV fluids Nephrology consult in a.m. - am labs, replace lytes prn - PT/OT/CM/SW - delirium precautions: increase activity - DVT prophylaxis: enoxaparin and encourage ambulation Complexity: Risk: Advance Directive: Prior Anticipated Discharge - Date - - Location - - Pending the following - Total time spent (which include face to face and non face to face encounters) : minutes. Toxic drug monitoring/narrow therapeutic index drug monitoring : # Drug name : Lovenox, vancomycin # Route administered : Subcutaneous, # Method of monitoring : CBC/platelets, BMP Extended Emergency Contact Information Primary Emergency Contact: Arnel Forte Mobile Relation: Child Secondary Emergency Contact: Russell Winston Mobile Relation: Child [employer] Mikel Winston : 1945 Primary Care Physician: KOMAL COHN DO The patient and/or family/surrogate voluntarily agreed to participate in ACP services. Patient s cognitive capacity: Code Status: [_] [FULL CODE - Continue all advanced life support: CPR,intubation,invasive procedures] [*_] [DNR-CCA - DO NOT do CPR, intubation] [_] [DNR-HUNTER GUIDE - Comfort care only] [_] DNR form [was/was not] signed Summary of discussion: The patient health care POA/ surrogate is the following: Her daughter Arnel Forte, had a long discussion, per daughter patient does not want any resuscitation measures . [Condition that instigated the ACP on this DOS, relevant PMH, functional status, goals of care, and whom this was discussed with including names and relationship to the patient, and any relevant advance care documentation discussion] I answered all the patient/family questions that I could within the range and scope of the current medical situation. We discussed the medical conditions, risks, benefits, outcomes, and goals of care at this time for the patient's medical issues at hand in the face of the patient's chronic issues and current presentation. Total time spent: minutes were spent discussing the patient's resuscitation status, advance care planning, and end of life care, with patient and/or family/surrogate. Sukhi Maurer MD Division of Hospitalist Medicine [facility] documented in this encounter [facility] 01-28-2024 Emergency department Note Guided family back MELIDA Owusu 01/28/24 1648 [facility] 01-28-2024 Emergency department Note Guided family back MELIDA Owusu 01/28/24 1648 Introduced myself as pt liaison explained role and provided support to son Guy and his Lizzette in [facility], pt arrived via EMS. MELIDA Owusu 01/28/24 1631 EMERGENCY DEPARTMENT ENCOUNTER Pt Name: Mikel Winston Birthdate 1945 Date of evaluation: 01/28/2024 ED Provider: Mindi Angulo MD CHIEF COMPLAINT Chief Complaint Patient presents with Urinary Problem Family called pt today and she seemed a little off like she does when she has a UTI. Most recent UTI was a month ago. PT has frequent UTI's HISTORY OF PRESENT ILLNESS (Location/Symptom, Timing/Onset, Context/Setting, Quality, Duration, Modifying Factors, Severity) Note limiting factors. I wore appropriate PPE for the entirety of this encounter. HPI Mikel Winston is a 78 y.o. female who presents to the emergency department for altered mental status. Patient's family states that they went over this evening and found her cooking food that was overdone in the oven. She was confused not able to tell them how long it had been cooking. They last saw her well yesterday morning. She has a history of urinary tract infections and has had confusion like this with those in the past. Patient's family is concerned that she has another UTI. They also state that her kidney function has been worsening and she was recently taken off of her diuretic. Patient is A&O x 2, normally A&O x 4. Patient herself has no complaints. Nursing Notes were reviewed. Limitations to history: Outside historians: REVIEW OF SYSTEMS Review of Systems Pertinent positives and negatives as per HPI. PAST MEDICAL HISTORY Past Medical History: Diagnosis Date CAD (coronary artery disease) Cirrhosis of liver (HCC) Diabetes mellitus (HCC) Hypertension Osteoporosis Thyroid disease SURGICAL HISTORY Past Surgical History: Procedure Laterality Date APPENDECTOMY CHOLECYSTECTOMY CORONARY ARTERY BYPASS GRAFT TOTAL KNEE ARTHROPLASTY Right TUBAL LIGATION CURRENT MEDICATIONS Previous Medications ALPHA TOCOPHEROL (VITAMIN E) 100 UNITS CAPSULE Take 100 Units by mouth daily. ASPIRIN 81 MG EC TABLET Take 81 mg by mouth daily. ATENOLOL (TENORMIN) 50 MG TABLET Take 50 mg by mouth daily. CHOLECALCIFEROL (VITAMIN D) 125 MCG (5000 UT) CAPSULE Take 5,000 Units by mouth daily. FERROUS SULFATE 325 (65 FE) MG TABLET Take 325 mg by mouth daily (with breakfast). FUROSEMIDE (LASIX) 20 MG TABLET Take 20 mg by mouth daily. LEVOTHYROXINE (SYNTHROID, LEVOXYL) 50 MCG TABLET TAKE 1 TABLET BY MOUTH DAILY LOSARTAN (COZAAR) 25 MG TABLET Take 25 mg by mouth daily. METFORMIN (GLUCOPHAGE) 500 MG TABLET Take 500 mg by mouth in the morning and 500 mg in the evening. Take with meals. MIRABEGRON ER (MYRBETRIQ) 25 MG 24 HR TABLET Take 25 mg by mouth Nightly. Do not crush, chew, or split. OMEPRAZOLE (PRILOSEC) [address] CAPSULE Take 40 mg by mouth every morning (before breakfast). Do not crush or chew. POTASSIUM CHLORIDE CR (KLOR-CON M10) 10 MEQ ER TABLET Take 10 mEq by mouth daily. Do not crush or chew. ROSUVASTATIN (CRESTOR) 20 MG TABLET Take 1 tablet (20 mg) by mouth daily. ALLERGIES Codeine FAMILY HISTORY Family History Problem Relation Name Age of Onset Stroke Father's Brother Diabetes Father Mental illness Mother Coronary artery disease Brother SOCIAL HISTORY Social History Socioeconomic History Marital status: Tobacco Use Smoking status: Never Smokeless tobacco: Never Substance and Sexual Activity Alcohol use: No Drug use: No Social Determinants of Health Transportation Needs: Unmet Transportation Needs (03/08/2022) Received from [facility] [facility] - Transportation Lack of Transportation (Medical): Yes Lack of Transportation (Non-Medical): Yes SCREENINGS PHYSICAL EXAM ED Triage Vitals Temp Pulse Resp BP -- -- -- -- SpO2 Temp src Heart Rate Source Patient Position -- -- -- -- BP Location FiO2 (%) -- -- Physical Exam Vitals and nursing note reviewed. Constitutional: General: She is not in acute distress. Appearance: She is well-developed. HENT: Head: Normocephalic and atraumatic. Eyes: Conjunctiva/sclera: Conjunctivae normal. Cardiovascular: Rate and Rhythm: Normal rate and regular rhythm. Pulmonary: Effort: Pulmonary effort is normal. No respiratory distress. Breath sounds: Rales (basilar) present. No wheezing or rhonchi. Abdominal: General: There is no distension. Palpations: Abdomen is soft. Tenderness: There is abdominal tenderness (suprapubic). There is no right CVA tenderness, left CVA tenderness, guarding or rebound. Musculoskeletal: Cervical back: Neck supple. Right lower leg: Edema present. Left lower leg: Edema present. Comments: 2+ pitting edema to b/l knees. Right lower extremity is warm and erythematous. Skin: General: Skin is warm and dry. Capillary Refill: Capillary refill takes less than 2 seconds. Neurological: Mental Status: She is alert. Comments: A&O x2 and speaking fluently with no dysarthria. Patient is able to name objects without difficulty but does have trouble word finding when asked open-ended questions. Moving all extremities equally. No facial asymmetry. No sensory deficits. No nystagmus or truncal ataxia. No limb dysmetria. NIH 1. DIAGNOSTIC RESULTS RADIOLOGY (Per Emergency Physician): Interpretation per the Radiologist below, if available at the time of this note: CT head wo IV contrast Final Result No CT evidence of an acute intracranial abnormality. Chronic parenchymal changes as described. Report Dictated on Electronically Signed By: Blaise Winters MD Electronically Signed Date/Time: 01/28/2024 6:29 PM EDT LABS: Labs Reviewed COMPLETE URINALYSIS - Abnormal Result Value Color, Urine Yellow Clarity, Urine Turbid (*) pH, Urine 6.0 Leukocytes, Urine 250 (*) Nitrite, Urine Negative Protein, Urine 50 (*) Glucose, Urine Normal Bilirubin, Urine Negative Ketones, Urine Negative Urobilinogen, Urine 2 (*) Blood, Urine 0.06 (*) RBC, Urine 3-5 (*) WBC, Urine 26-50 (*) Squamous Epithelial, Urine 3-5 Bacteria, Urine Many (*) Mucus, Urine Few WBC Clumps, Urine Rare (*) SPECIFIC GRAVITY OF URINE (NUMERIC) 1.015 CBC WITH AUTO DIFFERENTIAL - Abnormal Auto WBC 10.8 (*) RBC 3.63 (*) Hemoglobin 11.8 Hematocrit 35.1 MCV 96.7 MCH 32.5 MCHC 33.6 RDW 13.6 Platelets 105 (*) MPV 12.2 nRBC 0.0 Neutrophils Relative 79.9 Lymphocytes Relative 6.3 (*) Monocytes Relative 12.1 Eosinophils Relative 0.7 Basophils Relative 0.4 Immature Grans % 0.6 Neutrophils Absolute 8.6 (*) Lymphocytes Absolute 0.7 (*) Monocytes Absolute 1.3 (*) Eosinophils Absolute 0.1 Basophils Absolute 0.0 Immature Grans Absolute 0.1 (*) BASIC METABOLIC PANEL - Abnormal SODIUM 141 POTASSIUM 4.3 CHLORIDE 107 CARBON DIOXIDE 21 (*) UREA NITROGEN 33 (*) CREATININE 1.70 (*) GLUCOSE 122 (*) CALCIUM 10.2 ANION GAP 13 eGFR 30.6 (*) NT PRO BNP - Abnormal NT PRO BNP 1,480 (*) THYROID STIMULATING HORMONE - Normal THYROID STIMULATING HORMONE 1.503 T3 FREE - Normal T3, FREE 3.08 FREE T4 - Normal FREE T4 1.51 TROPONIN, WITH SERIAL REFLEX - Normal TROPONIN I 0.015 Narrative: Patients with high levels of Biotin oral intake (ie >5 mg/day) may have falsely decreased Troponin levels. URINE CULTURE TROPONIN I All other labs were within normal range or not returned as of this dictation. EMERGENCY DEPARTMENT COURSE and DIFFERENTIAL DIAGNOSIS/MDM: Vitals: Vitals: 01/28/24 1657 BP: (!) 162/64 Pulse: 91 Resp: 18 Temp: 37.1 C (98.8 F) TempSrc: Oral SpO2: 99% The patient presented with a chief complaint of altered mental status. Last seen well greater than 24 hours ago so not a candidate for stroke team. Patient has no focal deficits but does have some difficulty word finding when asked open-ended questions. NIH is 1 for mild aphasia but nonlocalizing. CT head without contrast was obtained and was negative for ICH. Infectious workup was obtained due to the patient history of encephalopathy with infection. Urinalysis does show positive WBC and leukocyte esterase with many bacteria consistent with a urinary tract infection. Urine culture is in process. She does not meet SIRS criteria. Patient also clinically appears to have right lower extremity cellulitis. Given this plan to admit for IV antibiotics. I do not think she is CDU candidate due to the altered mental status. Discussed with hospitalist. ED Medications managed: Medications vancomycin in NS (Vancocin) IVPB 2,000 mg (has no administration in time range) cefTRIAXone (Rocephin) 1,000 mg in sodium chloride 0.9 % 50 mL IVPB Mini-Bag Plus (1,000 mg IntraVENous New Bag 01/28/24 1725) PROCEDURES: Unless otherwise noted below, none Procedures FINAL IMPRESSION 1. Cellulitis of right lower extremity 2. Acute cystitis without hematuria DISPOSITION Admit 01/28/2024 05:36:50 PM PATIENT REFERRED TO: No follow-up provider specified. DISCHARGE MEDICATIONS: New Prescriptions No medications on file (Comment: Please note this report has been produced using speech recognition software and may contain errors related to that system including errors in grammar, punctuation, and spelling, as well as words and phrases that may be inappropriate. If there are any questions or concerns please feel free to contact the dictating provider for clarification.) iMndi Angulo MD (electronically signed) Emergency Medicine Provider Mindi Angulo MD Resident 01/28/24 5106 Emergency Department Encounter [facility] ED Patient: Mikel Winston : 1945 Date of Evaluation: 01/28/2024 ED Supervising Physician: Surjit Sanchez MD I personally evaluated Mikel Winston and made/approved the management plan and take responsibility for the patient management. This will serve as my Supervisory note and shared attestation. I did perform a substantive portion of the visit including all aspects of the Medical Decision Making. I wore appropriate PPE for the entirety of this encounter. In brief, Mikel Winston is a 78 y.o. that presents to the emergency department altered mental status Focused exam: Patient had a nonfocal neurologic exam Brief ED course/MDM: Patient was seen and evaluated for altered mental status. She was found to have a urinary tract infection the patient was given Rocephin and vancomycin Diagnostics interpreted by me: none I personally discussed the patient's management with other clinicians: Peterson Angulo md All diagnostic, treatment, and disposition decisions were made by myself in conjunction with the Resident. I also supervised patel portions of any procedures performed by the Resident. For all further details of the patient's emergency department visit, please see their documentation. (Comment: Please note this report has been produced using speech recognition software and may contain errors related to that system including errors in grammar, punctuation, and spelling, as well as words and phrases that may be inappropriate. If there are any questions or concerns please feel free to contact the dictating provider for clarification.) Surjit Sanchez MD Acute Care [facility] Surjit Sanchez MD 01/29/24 0122 documented in this encounter [facility] 01-28-2024 Emergency department Note Introduced myself as pt liaison explained role and provided support to son Guy and his Lizzette in [facility], pt arrived via EMS. MELIDA Owusu 01/28/24 1631 [facility] 01-28-2024 Physician Emergency department Note EMERGENCY DEPARTMENT ENCOUNTER Pt Name: Mikel Winston Birthdate 1945 Date of evaluation: 01/28/2024 ED Provider: Mindi Angulo MD CHIEF COMPLAINT Chief Complaint Patient presents with Urinary Problem Family called pt today and she seemed a little off like she does when she has a UTI. Most recent UTI was a month ago. PT has frequent UTI's HISTORY OF PRESENT ILLNESS (Location/Symptom, Timing/Onset, Context/Setting, Quality, Duration, Modifying Factors, Severity) Note limiting factors. I wore appropriate PPE for the entirety of this encounter. HPI Mikel Winston is a 78 y.o. female who presents to the emergency department for altered mental status. Patient's family states that they went over this evening and found her cooking food that was overdone in the oven. She was confused not able to tell them how long it had been cooking. They last saw her well yesterday morning. She has a history of urinary tract infections and has had confusion like this with those in the past. Patient's family is concerned that she has another UTI. They also state that her kidney function has been worsening and she was recently taken off of her diuretic. Patient is A&O x 2, normally A&O x 4. Patient herself has no complaints. Nursing Notes were reviewed. Limitations to history: Outside historians: REVIEW OF SYSTEMS Review of Systems Pertinent positives and negatives as per HPI. PAST MEDICAL HISTORY Past Medical History: Diagnosis Date CAD (coronary artery disease) Cirrhosis of liver (HCC) Diabetes mellitus (HCC) Hypertension Osteoporosis Thyroid disease SURGICAL HISTORY Past Surgical History: Procedure Laterality Date APPENDECTOMY CHOLECYSTECTOMY CORONARY ARTERY BYPASS GRAFT TOTAL KNEE ARTHROPLASTY Right TUBAL LIGATION CURRENT MEDICATIONS Previous Medications ALPHA TOCOPHEROL (VITAMIN E) 100 UNITS CAPSULE Take 100 Units by mouth daily. ASPIRIN 81 MG EC TABLET Take 81 mg by mouth daily. ATENOLOL (TENORMIN) 50 MG TABLET Take 50 mg by mouth daily. CHOLECALCIFEROL (VITAMIN D) 125 MCG (5000 UT) CAPSULE Take 5,000 Units by mouth daily. FERROUS SULFATE 325 (65 FE) MG TABLET Take 325 mg by mouth daily (with breakfast). FUROSEMIDE (LASIX) 20 MG TABLET Take 20 mg by mouth daily. LEVOTHYROXINE (SYNTHROID, LEVOXYL) 50 MCG TABLET TAKE 1 TABLET BY MOUTH DAILY LOSARTAN (COZAAR) 25 MG TABLET Take 25 mg by mouth daily. METFORMIN (GLUCOPHAGE) 500 MG TABLET Take 500 mg by mouth in the morning and 500 mg in the evening. Take with meals. MIRABEGRON ER (MYRBETRIQ) 25 MG 24 HR TABLET Take 25 mg by mouth Nightly. Do not crush, chew, or split. OMEPRAZOLE (PRILOSEC) [address] CAPSULE Take 40 mg by mouth every morning (before breakfast). Do not crush or chew. POTASSIUM CHLORIDE CR (KLOR-CON M10) 10 MEQ ER TABLET Take 10 mEq by mouth daily. Do not crush or chew. ROSUVASTATIN (CRESTOR) 20 MG TABLET Take 1 tablet (20 mg) by mouth daily. ALLERGIES Codeine FAMILY HISTORY Family History Problem Relation Name Age of Onset Stroke Father's Brother Diabetes Father Mental illness Mother Coronary artery disease Brother SOCIAL HISTORY Social History Socioeconomic History Marital status: Tobacco Use Smoking status: Never Smokeless tobacco: Never Substance and Sexual Activity Alcohol use: No Drug use: No Social Determinants of Health Transportation Needs: Unmet Transportation Needs (03/08/2022) [facility] - Transportation Lack of Transportation (Medical): Yes Lack of Transportation (Non-Medical): Yes SCREENINGS PHYSICAL EXAM ED Triage Vitals Temp Pulse Resp BP -- -- -- -- SpO2 Temp src Heart Rate Source Patient Position -- -- -- -- BP Location FiO2 (%) -- -- Physical Exam Vitals and nursing note reviewed. Constitutional: General: She is not in acute distress. Appearance: She is well-developed. HENT: Head: Normocephalic and atraumatic. Eyes: Conjunctiva/sclera: Conjunctivae normal. Cardiovascular: Rate and Rhythm: Normal rate and regular rhythm. Pulmonary: Effort: Pulmonary effort is normal. No respiratory distress. Breath sounds: Rales (basilar) present. No wheezing or rhonchi. Abdominal: General: There is no distension. Palpations: Abdomen is soft. Tenderness: There is abdominal tenderness (suprapubic). There is no right CVA tenderness, left CVA tenderness, guarding or rebound. Musculoskeletal: Cervical back: Neck supple. Right lower leg: Edema present. Left lower leg: Edema present. Comments: 2+ pitting edema to b/l knees. Right lower extremity is warm and erythematous. Skin: General: Skin is warm and dry. Capillary Refill: Capillary refill takes less than 2 seconds. Neurological: Mental Status: She is alert. Comments: A&O x2 and speaking fluently with no dysarthria. Patient is able to name objects without difficulty but does have trouble word finding when asked open-ended questions. Moving all extremities equally. No facial asymmetry. No sensory deficits. No nystagmus or truncal ataxia. No limb dysmetria. NIH 1. DIAGNOSTIC RESULTS RADIOLOGY (Per Emergency Physician): Interpretation per the Radiologist below, if available at the time of this note: CT head wo IV contrast Final Result No CT evidence of an acute intracranial abnormality. Chronic parenchymal changes as described. Report Dictated on Electronically Signed By: Blaise Winters MD Electronically Signed Date/Time: 01/28/2024 6:29 PM EDT LABS: Labs Reviewed COMPLETE URINALYSIS - Abnormal Result Value Color, Urine Yellow Clarity, Urine Turbid (*) pH, Urine 6.0 Leukocytes, Urine 250 (*) Nitrite, Urine Negative Protein, Urine 50 (*) Glucose, Urine Normal Bilirubin, Urine Negative Ketones, Urine Negative Urobilinogen, Urine 2 (*) Blood, Urine 0.06 (*) RBC, Urine 3-5 (*) WBC, Urine 26-50 (*) Squamous Epithelial, Urine 3-5 Bacteria, Urine Many (*) Mucus, Urine Few WBC Clumps, Urine Rare (*) SPECIFIC GRAVITY OF URINE (NUMERIC) 1.015 CBC WITH AUTO DIFFERENTIAL - Abnormal Auto WBC 10.8 (*) RBC 3.63 (*) Hemoglobin 11.8 Hematocrit 35.1 MCV 96.7 MCH 32.5 MCHC 33.6 RDW 13.6 Platelets 105 (*) MPV 12.2 nRBC 0.0 Neutrophils Relative 79.9 Lymphocytes Relative 6.3 (*) Monocytes Relative 12.1 Eosinophils Relative 0.7 Basophils Relative 0.4 Immature Grans % 0.6 Neutrophils Absolute 8.6 (*) Lymphocytes Absolute 0.7 (*) Monocytes Absolute 1.3 (*) Eosinophils Absolute 0.1 Basophils Absolute 0.0 Immature Grans Absolute 0.1 (*) BASIC METABOLIC PANEL - Abnormal SODIUM 141 POTASSIUM 4.3 CHLORIDE 107 CARBON DIOXIDE 21 (*) UREA NITROGEN 33 (*) CREATININE 1.70 (*) GLUCOSE 122 (*) CALCIUM 10.2 ANION GAP 13 eGFR 30.6 (*) NT PRO BNP - Abnormal NT PRO BNP 1,480 (*) THYROID STIMULATING HORMONE - Normal THYROID STIMULATING HORMONE 1.503 T3 FREE - Normal T3, FREE 3.08 FREE T4 - Normal FREE T4 1.51 TROPONIN, WITH SERIAL REFLEX - Normal TROPONIN I 0.015 Narrative: Patients with high levels of Biotin oral intake (ie >5 mg/day) may have falsely decreased Troponin levels. URINE CULTURE TROPONIN I All other labs were within normal range or not returned as of this dictation. EMERGENCY DEPARTMENT COURSE and DIFFERENTIAL DIAGNOSIS/MDM: Vitals: Vitals: 01/28/24 1657 BP: (!) 162/64 Pulse: 91 Resp: 18 Temp: 37.1 C (98.8 F) TempSrc: Oral SpO2: 99% The patient presented with a chief complaint of altered mental status. Last seen well greater than 24 hours ago so not a candidate for stroke team. Patient has no focal deficits but does have some difficulty word finding when asked open-ended questions. NIH is 1 for mild aphasia but nonlocalizing. CT head without contrast was obtained and was negative for ICH. Infectious workup was obtained due to the patient history of encephalopathy with infection. Urinalysis does show positive WBC and leukocyte esterase with many bacteria consistent with a urinary tract infection. Urine culture is in process. She does not meet SIRS criteria. Patient also clinically appears to have right lower extremity cellulitis. Given this plan to admit for IV antibiotics. I do not think she is CDU candidate due to the altered mental status. Discussed with hospitalist. ED Medications managed: Medications vancomycin in NS (Vancocin) IVPB 2,000 mg (has no administration in time range) cefTRIAXone (Rocephin) 1,000 mg in sodium chloride 0.9 % 50 mL IVPB Mini-Bag Plus (1,000 mg IntraVENous New Bag 01/28/24 1725) PROCEDURES: Unless otherwise noted below, none Procedures FINAL IMPRESSION 1. Cellulitis of right lower extremity 2. Acute cystitis without hematuria DISPOSITION Admit 01/28/2024 05:36:50 PM PATIENT REFERRED TO: No follow-up provider specified. DISCHARGE MEDICATIONS: New Prescriptions No medications on file (Comment: Please note this report has been produced using speech recognition software and may contain errors related to that system including errors in grammar, punctuation, and spelling, as well as words and phrases that may be inappropriate. If there are any questions or concerns please feel free to contact the dictating provider for clarification.) Mindi Angulo MD (electronically signed) Emergency Medicine Provider Mindi Angulo MD Resident 01/28/24 1836 [facility] 01-28-2024 Physician Emergency department Note Emergency Department Encounter [facility] ED Patient: Mikel Winston : 1945 Date of Evaluation: 01/28/2024 ED Supervising Physician: Surjit Sanchez MD I personally evaluated Mikel Winston and made/approved the management plan and take responsibility for the patient management. This will serve as my Supervisory note and shared attestation. I did perform a substantive portion of the visit including all aspects of the Medical Decision Making. I wore appropriate PPE for the entirety of this encounter. In brief, Mikel Winston is a 78 y.o. that presents to the emergency department altered mental status Focused exam: Patient had a nonfocal neurologic exam Brief ED course/MDM: Patient was seen and evaluated for altered mental status. She was found to have a urinary tract infection the patient was given Rocephin and vancomycin Diagnostics interpreted by me: none I personally discussed the patient's management with other clinicians: Peterson Angulo md All diagnostic, treatment, and disposition decisions were made by myself in conjunction with the Resident. I also supervised patel portions of any procedures performed by the Resident. For all further details of the patient's emergency department visit, please see their documentation. (Comment: Please note this report has been produced using speech recognition software and may contain errors related to that system including errors in grammar, punctuation, and spelling, as well as words and phrases that may be inappropriate. If there are any questions or concerns please feel free to contact the dictating provider for clarification.) Surjit Sanchez MD [employer] Surjit Sanchez MD 01/29/24 0122 [facility] Work Phone: 01-09-2024 Evaluation note Diagnosis Type 2 diabetes mellitus with stage 3 chronic kidney disease, without long-term current use of insulin, unspecified whether stage 3a or 3b CKD (HCC)- Primary Screening for diabetic retinopathy Screening for other eye conditions Primary hypertension Unspecified essential hypertension Vitamin B12 deficiency Other B-complex deficiencies Abnormal level of blood mineral Other abnormal blood chemistry Other seasonal allergic rhinitis 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) 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) Gastro-esophageal reflux disease with esophagitis, without bleeding Bilateral leg edema Edema Hyperlipidemia, mixed Mixed hyperlipidemia CKD (chronic kidney disease) stage 4, GFR 15-29 ml/min (HCC) Chronic kidney disease, Stage IV (severe) documented in this encounter [facility]05-31-2024 Telephone encounter Note* Telephone Encounter - Sylvia Monroy - 01/06/2024 2:50 PM EDT Consult to nephrology CKD chronic kidney disease stage 4 GFR 15-29 ml/min Confirm [id number] Sylvia Monroy [facility]05-31-2024 Miscellaneous Notes* Telephone Encounter - Sylvia Monroy - 01/06/2024 2:50 PM EDT Consult to nephrology CKD chronic kidney disease stage 4 GFR 15-29 ml/min Confirm [id number] Sylvia Monroy [facility] encounter Note * Telephone Encounter - Sylvia Monroy - 01/06/2024 2:48 PM EDT Consult to ophthalmology Screening for diabetic retinopathy Confirm [id number] Sylvia Monroy [facility]05-31-2024 Miscellaneous Notes* Telephone Encounter - Sylvia Monroy - 01/06/2024 2:48 PM EDT Consult to ophthalmology Screening for diabetic retinopathy Confirm [id number] Sylvia Monroy [facility] NoteHNO ID: [id number] Author: ?, ?, ? Service: ? Author Type: ? Type: Progress Notes Filed: 05/29/2024 16:07 Note Text: [facility] Hamdenomi Cohn DO [address] [place] [address] Date of Evaluation: 01/06/2024 Patient Name: Mikel Winston : 1945 Chief Complaint: Patient presents with: Follow Up: 4 week follow up for UTI Diabetes Wound Check: Right lower leg dry skin patient wants talk about Lasix Nursing Intake: There are no exam notes on file for this visit. Subjective Ms. Winston is a 78 year old female who presents with the following complaint(s): The history is provided by the patient. No manager language was used. Diabetes She presents for her follow-up diabetic visit. She has type 2 diabetes mellitus. Pertinent negatives for hypoglycemia include no dizziness, headaches or nervousness/anxiousness. Pertinent negatives for diabetes include no chest pain, no fatigue and no weakness. Wound Check Pertinent negatives include no chest pain, coughing, fatigue, headaches, numbness or weakness. Hypertension This is a chronic problem. The current episode started more than 1 year ago. Pertinent negatives include no chest pain, headaches, palpitations or shortness of breath. There is no history of kidney disease. Allergies This is a recurrent problem. The problem occurs intermittently. Pertinent negatives include no chest pain, coughing, fatigue, headaches, numbness or weakness. Edema This is a recurrent problem. Pertinent negatives include no chest pain, coughing, fatigue, headaches, numbness or weakness. Hypercholesterolemia This is a chronic problem. The current episode started more than 1 year ago. Pertinent negatives include no chest pain or shortness of breath. Review of Systems Constitutional: Negative for fatigue and unexpected weight change. HENT: Negative for nosebleeds. Eyes: Negative for redness and visual disturbance. Respiratory: Negative for apnea, cough and shortness of breath. Cardiovascular: Negative for chest pain, palpitations and leg swelling. Genitourinary: Negative for hematuria. Neurological: Negative for dizziness, weakness, light-headedness, numbness and headaches. Hematological: Does not bruise/bleed easily. Psychiatric/Behavioral: The patient is not nervous/anxious. PAST MEDICAL HISTORY Diagnosis Date Anemia Diabetes (HCC) Diverticulosis Dysphagia FHx: colon cancer Hemorrhoids Hepatic flexure syndrome History of colon polyps Hypertension BARRON (nonalcoholic steatohepatitis) UTI (urinary tract infection) PAST SURGICAL HISTORY Procedure Laterality Date COLONOSCOPY 05/09/2012 TUBAL LIGATION HX FAMILY HISTORY Problem Relation Age of Onset Colon Cancer Mother other (Liver disease) Mother Social History Tobacco Use Smoking status: Former Smokeless tobacco: Never Vaping Use Vaping Use: Never used Substance Use Topics Alcohol use: No Drug use: No Current Outpatient Medications Medication Sig VITAMIN B-12 1,000 mcg tab take 1 tablet by mouth every day levothyroxine (SYNTHROID) 50 mcg tablet take 1 tablet by mouth every day Blood-Glucose Meter Use to test blood sugar blood sugar diagnostic (BLOOD GLUCOSE TEST) test strip Use to test blood sugar BID Lancets lancets Use to test blood sugar BID ACCU-CHEK KENROY PLUS TEST STRP test strip 1 STRIP TWICE DAILY. USE TO TEST BLOOD SUGAR TWICE A DAY cholecalciferol, vitamin D3, (VITAMIN D3 ORAL) Take by mouth. aspirin 81 mg chewable tablet Take 81 mg by mouth. Vitamin E, dl, acetate, (VITAMIN E) 400 unit capsule Take 800 Units by mouth. atenolol (TENORMIN) 50 mg tablet Take 1 tablet by mouth once daily. Cyanocobalamin 1,000 mcg TbER Take 1 tablet by mouth once daily. ferrous sulfate 325 mg (65 mg iron) tablet Take 1 tablet by mouth every afternoon. fluticasone (FLONASE) 50 mcg/actuation nasal spray Use 2 Sprays in each nostril once daily. losartan (COZAAR) 25 mg tablet Take 1 tablet by mouth every afternoon. metFORMIN (GLUCOPHAGE) 500 mg tablet Take 1 tablet by mouth two times a day with meals. mirabegron (MYRBETRIQ) 25 mg Tb24 Take 1 tablet by mouth once daily. nystatin (MYCOSTATIN) powder Apply 1 application to affected area three times a day. APPLY TO AFFECTED AREA omeprazole (PRILOSEC) 40 mg capsule Take 1 capsule by mouth every afternoon. rosuvastatin (CRESTOR) 20 mg tablet Take 1 tablet by mouth once daily. citalopram (CELEXA) 20 mg tablet Take 0.5 tablets by mouth once daily for 7 days, THEN 1 tablet once daily. (Patient not taking: Reported on 01/06/2024) potassium chloride SR (MICRO-K) 10 mEq CR capsule TAKE 1 CAPSULE BY MOUTH EVERY DAY NEEDED WITH LASIX (Patient not taking: Reported on 01/06/2024) benzonatate (TESSALON PERLE) 100 mg capsule (Patient not taking: Reported on 03/07/2023) M (more content not included)...[facility]05-31-2024 History of Present illness Narrative* Melanie Ellsworth - 01/06/2024 1:23 PM EDT Images from the original note were not included. [facility] Brandi Cohn DO [address] [place] [address] Date of Evaluation: 01/06/2024 Patient Name: Mikel Winston : 1945 Chief Complaint: Patient presents with: Follow Up: 4 week follow up for UTI Diabetes Wound Check: Right lower leg dry skin patient wants talk about Lasix Nursing Intake: There are no exam notes on file for this visit. Subjective Ms. Winston is a 78 year old female who presents with the following complaint(s): The history is provided by the patient. No manager language was used. Diabetes She presents for her follow-up diabetic visit. She has type 2 diabetes mellitus. Pertinent negatives for hypoglycemia include no dizziness, headaches or nervousness/anxiousness. Pertinent negatives for diabetes include no chest pain, no fatigue and no weakness. Wound Check Pertinent negatives include no chest pain, coughing, fatigue, headaches, numbness or weakness. Hypertension This is a chronic problem. The current episode started more than 1 year ago. Pertinent negatives include no chest pain, headaches, palpitations or shortness of breath. There is no history of kidney disease. Allergies This is a recurrent problem. The problem occurs intermittently. Pertinent negatives include no chest pain, coughing, fatigue, headaches, numbness or weakness. Edema This is a recurrent problem. Pertinent negatives include no chest pain, coughing, fatigue, headaches, numbness or weakness. Hypercholesterolemia This is a chronic problem. The current episode started more than 1 year ago. Pertinent negatives include no chest pain or shortness of breath. Review of Systems Constitutional: Negative for fatigue and unexpected weight change. HENT: Negative for nosebleeds. Eyes: Negative for redness and visual disturbance. Respiratory: Negative for apnea, cough and shortness of breath. Cardiovascular: Negative for chest pain, palpitations and leg swelling. Genitourinary: Negative for hematuria. Neurological: Negative for dizziness, weakness, light-headedness, numbness and headaches. Hematological: Does not bruise/bleed easily. Psychiatric/Behavioral: The patient is not nervous/anxious. PAST MEDICAL HISTORY Diagnosis Date Anemia Diabetes (HCC) Diverticulosis Dysphagia FHx: colon cancer Hemorrhoids Hepatic flexure syndrome History of colon polyps Hypertension BARRON (nonalcoholic steatohepatitis) UTI (urinary tract infection) PAST SURGICAL HISTORY Procedure Laterality Date COLONOSCOPY 05/09/2012 TUBAL LIGATION HX FAMILY HISTORY Problem Relation Age of Onset Colon Cancer Mother other (Liver disease) Mother Social History Tobacco Use Smoking status: Former Smokeless tobacco: Never Vaping Use Vaping Use: Never used Substance Use Topics Alcohol use: No Drug use: No Current Outpatient Medications Medication Sig VITAMIN B-12 1,000 mcg tab take 1 tablet by mouth every day levothyroxine (SYNTHROID) 50 mcg tablet take 1 tablet by mouth every day Blood-Glucose Meter Use to test blood sugar blood sugar diagnostic (BLOOD GLUCOSE TEST) test strip Use to test blood sugar BID Lancets lancets Use to test blood sugar BID ACCU-CHEK KENROY PLUS TEST STRP test strip 1 STRIP TWICE DAILY. USE TO TEST BLOOD SUGAR TWICE A DAY cholecalciferol, vitamin D3, (VITAMIN D3 ORAL) Take by mouth. aspirin 81 mg chewable tablet Take 81 mg by mouth. Vitamin E, dl, acetate, (VITAMIN E) 400 unit capsule Take 800 Units by mouth. atenolol (TENORMIN) 50 mg tablet Take 1 tablet by mouth once daily. Cyanocobalamin 1,000 mcg TbER Take 1 tablet by mouth once daily. ferrous sulfate 325 mg (65 mg iron) tablet Take 1 tablet by mouth every afternoon. fluticasone (FLONASE) 50 mcg/actuation nasal spray Use 2 Sprays in each nostril once daily. losartan (COZAAR) 25 mg tablet Take 1 tablet by mouth every afternoon. metFORMIN (GLUCOPHAGE) 500 mg tablet Take 1 tablet by mouth two times a day with meals. mirabegron (MYRBETRIQ) 25 mg Tb24 Take 1 tablet by mouth once daily. nystatin (MYCOSTATIN) powder Apply 1 application to affected area three times a day. APPLY TO AFFECTED AREA omeprazole (PRILOSEC) 40 mg capsule Take 1 capsule by mouth every afternoon. rosuvastatin (CRESTOR) 20 mg tablet Take 1 tablet by mouth once daily. citalopram (CELEXA) 20 mg tablet Take 0.5 tablets by mouth once daily for 7 days, THEN 1 tablet once daily. (Patient not taking: Reported on 01/06/2024) potassium chloride SR (MICRO-K) 10 mEq CR capsule TAKE 1 CAPSULE BY MOUTH EVERY DAY NEEDED WITH LASIX (Patient not taking: Reported on 01/06/2024) benzonatate (TESSALON PERLE) 100 mg capsule (Patient not taking: Reported on 03/07/2023) MULTIVITAMIN ORAL Take by mouth. (Patient not taking: Reported on 11/22/2022) No current facility-administered medications for this visit. I have confirmed and edited as necessary the past medical, family and social histories, HPI, and ROS obtained by others. Objective BP 134/70 Pulse 61 Temp 98 Ht 5' 4 (1.63m) Wt 206 lb (93.4kg) SpO2 97% BMI 35.34 kg/(m^2). Physical Exam Vitals and nursing note reviewed. Constitutional: General: She is not in acute distress. Appearance: Normal appearance. She is well-developed. She is not ill-appearing. HENT: Head: Normocephalic. Right Ear: Tympanic membrane, ear canal and external ear normal. There is no impacted cerumen. Left Ear: Tympanic membrane, ear canal and external ear normal. There is no impacted cerumen. Nose: Nose normal. Mouth/Throat: Mouth: Mucous membranes are moist. Pharynx: Oropharynx is clear. Uvula midline. No oropharyngeal exudate or posterior oropharyngeal erythema. Eyes: General: Lids are normal. Vision grossly intact. Gaze aligned appropriately. No scleral icterus. Right eye: No discharge. Left eye: No discharge. Extraocular Movements: Extraocular movements intact. Conjunctiva/sclera: Conjunctivae normal. Pupils: Pupils are equal, round, and reactive to light. Neck: Thyroid: No thyroid mass, thyromegaly or thyroid tenderness. Vascular: No carotid bruit. Trachea: Trachea and phonation normal. Cardiovascular: Rate and Rhythm: Normal rate and regular rhythm. Pulses: Normal pulses. Heart sounds: Normal heart sounds. Pulmonary: Effort: Pulmonary effort is normal. Breath sounds: Normal breath sounds. Abdominal: General: Abdomen is flat. Bowel sounds are normal. Palpations: Abdomen is soft. Musculoskeletal: General: Normal range of motion. Right shoulder: Normal. Left shoulder: Normal. Cervical back: Normal, full passive range of motion without pain and neck supple. No tenderness. Nospinous process tenderness. Thoracic back: Normal. Lumbar back: Normal. Right knee: Normal. Left knee: Normal. Right lower leg: No edema. Left lower leg: No edema. Lymphadenopathy: Cervical: No cervical adenopathy. Skin: General: Skin is warm and dry. Neurological: General: No focal deficit present. Mental Status: She is alert and oriented to person, place, and time. Mental status is at baseline. Sensory: Sensation is intact. Motor: Motor function is intact. Psychiatric: Attention and Perception: Attention and perception normal. Mood and Affect: Mood normal. Speech: Speech normal. Behavior: Behavior normal. Thought Content: Thought content normal. Judgment: Judgment normal. Data Reviewed: Most recent labs ASSESSMENT/PLAN: 1. Type 2 diabetes mellitus with stage 3 chronic kidney disease, without long- term current use of insulin, unspecified whether stage 3a or 3b CKD (HCC) - ICD9: 250.40, 585.3, ICD10: E11.22, N18.30 (primary diagnosis) - Controlled - Continue current medications - eGFR: 16 Worsening - Follow up with kidney medicine - HEMOGLOBIN A1C (POC) 2. Screening for diabetic retinopathy - ICD9: V80.2, ICD10: Z13.5 - CONSULT TO OPHTHALMOLOGY 3. Primary hypertension - ICD9: 401.9, ICD10: I10 - Controlled - Continue current medications - Recommend home blood pressure monitoring, to bring results to next visit - Encouraged sodium restriction, DASH or Mediterranean diet - Recommend regular aerobic exercise - ATENOLOL 50 MG TABLET 4. Vitamin B12 deficiency - ICD9: 266.2, ICD10: E53.8 - CYANOCOBALAMIN (VIT B-12) ER 1,000 MCG TABLET,EXTENDED RELEASE 5. Abnormal level of blood mineral - ICD9: 790.6, ICD10: R79.0 - FERROUS SULFATE 325 MG (65 MG IRON) TABLET 6. Other seasonal allergic rhinitis - ICD9: 477.8, ICD10: J30.2 - FLUTICASONE PROPIONATE 50 MCG/ACTUATION NASAL SPRAY,SUSPENSION 7. 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) - ICD9: 250.40, 403.90, 585.3, ICD10: E11.22, I12.9, N18.30 - METFORMIN 500 MG TABLET 8. Mixed incontinence - ICD9: 788.33, ICD10: N39.46 - MIRABEGRON ER 25 MG TABLET,EXTENDED RELEASE 24 HR 9. Gastro-esophageal reflux disease with esophagitis, without bleeding - ICD9: 530.81, 530.10, ICD10: K21.00 - OMEPRAZOLE 40 MG CAPSULE,DELAYED RELEASE 10. Bilateral leg edema - ICD9: 782.3, ICD10: R60.0 - Advised continue to elevate legs and reduce salt. 11. Hyperlipidemia, mixed - ICD9: 272.2, ICD10: E78.2 - Continue current medications - Counseled on healthy diet and regular exercise - ROSUVASTATIN 20 MG TABLET 12. CKD (chronic kidney disease) stage 4, GFR 15-29 ml/min ([facility]) - ICD9: 585.4, ICD10: N18.4 - eGFR: 16 Worsening - Counseled on avoiding NSAIDs, adequate hydration - Counseled on low sodium diet - Follow up with kidney medicine - CONSULT TO NEPHROLOGY - BASIC METABOLIC PANEL - US KIDNEY/BLADDER Komal Cohn DO Return in about 3 months (around 04/07/2024). Attestation: Scribe Attestation: The patient is seen and examined by Dr. Cohn and the following reflects his/her service. Scribed by Melanie Ellsworth January 06, 2024 1:36 PMProvider Attestation: I, Komal Cohn DO personally performed the services described in this documentation. All medical record entries made by the scribe were at my direction and in my presence. I have reviewed the chart and discharge instructions (if applicable) and agree that the record reflects my personal per formance and is accurate and complete. Electronically Signed: Komal Cohn DO, January 0541:41 PM documented in this encounterTr[facility]05-14-[facility]24 Telephone encounter Note * Telephone Encounter - Grace Linda LPN - 12/20/2023 4:13 PM EDT Spoke to Clinton. Related all the information from Dr. Cohn. Clinton states that his sister generally handles all this for Mikel, but she has been working more recently, so Clinton may have to handle this. 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 No order for referral - sent message back to For the referral. [facility]05-14-[facility] Telephone encounter Note* Telephone Encounter - Grace Linda LPN - 12/20/2023 4:13 PM EDT Need to have order for Neph referral [facility]05-14-[facility]24 Miscellaneous Notes* Telephone Encounter - Grace Linda LPN - 12/20/2023 4:13 PM EDT Spoke to [place]. Related all the information from Dr. Cohn. Clinton states that his sister generally handles all this for Mikel, but she has been working more recently, so Clinton may have to handle this. 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 No order for referral - sent message back to For the referral. * Telephone Encounter - Grace Linda LPN - 12/20/2023 4:13 PM EDT Need to have order for Neph referral * Telephone Encounter - Grace Linda LPN - 12/20/2023 9:14 AM EDT Attempted to LM for pt to rtn call. VM is full, unable at this time. Will attempt to contact later. * Telephone Encounter - Arnel Govea LPN - 12/16/2023 4:07 PM EDT Tried to call the patients son, there was no answer. * Telephone Encounter - Arnel Govea LPN - 12/16/2023 4:02 PM EDT ----- Message from Komal Cohn DO sent at 12/16/2023 3:31 PM EDT ----- End stage kidney disease neph conult us ordered stop laseli I spoke qwith pt but she lack insight. She will hav he dgtr call me Tuesday I called son vincent but no answer documented in this encounterTr[facility]05-[facility] Telephone encounter Note * Telephone Encounter - Grace Linda LPN - 12/20/2023 9:14 AM EDT Attempted to LM for pt to rtn call. VM is full, unable at this time. Will attempt to contact later. [facility]-10-[facility] Telephone encounter Note* Telephone Encounter - Arnel Govea LPN - 12/16/2023 4:07 PM EDT Tried to call the patients son, there was no answer. [facility] Telephone encounter Note* Telephone Encounter - Arnel Govea LPN - 12/16/2023 4:02 PM EDT ----- Message from Komal Cohn DO sent at 12/16/2023 3:31 PM EDT ----- End stage kidney disease neph conult us ordered stop lasix I spoke qwith pt but she lack insight. She will hav he dgtr call me Tuesday I called son vincent but no answer [facility]05-01-2024 NoteHNO ID: [id number] Author: KOMAL COHN DO Service: ? Author Type: Physician Type: Progress Notes Filed: 12/11/2023 22:53 Note Text: [facility] Komal Cohn DO [address] [place] [address] Date of Evaluation: 12/07/2023 Patient Name: Mikel Winston : 1945 Chief Complaint: Patient presents with: Urinary Frequency: Burning with urination Confusion Leg Edema: Right lower leg, redness, blisters Nursing Intake: There are no exam notes on file for this visit. Subjective Ms. Winston is a 78 year old female who presents with the following complaint(s): The history is provided by the patient. No manager language was used. UTI This is a new problem. The problem has not changed since onset.The quality of the pain is described as burning. There has been no fever. Pertinent negatives include no hematuria. Mental Status Changes This is a new problem. The problem has been gradually improving. Associated symptoms include fatigue. Pertinent negatives include no chest pain, coughing, headaches, numbness or weakness. Edema This is a recurrent problem. The problem occurs daily. The problem has been gradually worsening. Associated symptoms include fatigue. Pertinent negatives include no chest pain, coughing, headaches, numbness or weakness. Depression Pertinent negatives include no weakness. This is a recurrent problem. The problem has been gradually worsening since onset. Review of Systems Constitutional: Positive for fatigue. Negative for unexpected weight change. HENT: Negative for nosebleeds. Eyes: Negative for redness and visual disturbance. Respiratory: Negative for apnea, cough and shortness of breath. Cardiovascular: Positive for leg swelling. Negative for chest pain and palpitations. Genitourinary: Positive for dysuria. Negative for hematuria. Neurological: Negative for dizziness, weakness, light-headedness, numbness and headaches. Hematological: Does not bruise/bleed easily. Psychiatric/Behavioral: Positive for depression. The patient is not nervous/anxious. PAST MEDICAL HISTORY Diagnosis Date Anemia Diabetes (HCC) Diverticulosis Dysphagia FHx: colon cancer Hemorrhoids Hepatic flexure syndrome History of colon polyps Hypertension BARRON (nonalcoholic steatohepatitis) UTI (urinary tract infection) PAST SURGICAL HISTORY Procedure Laterality Date COLONOSCOPY 05/09/2012 TUBAL LIGATION HX FAMILY HISTORY Problem Relation Age of Onset Colon Cancer Mother other (Liver disease) Mother Social History Tobacco Use Smoking status: Former Smokeless tobacco: Never Vaping Use Vaping Use: Never used Substance Use Topics Alcohol use: No Drug use: No Current Outpatient Medications Medication Sig MYRBETRIQ 25 mg Tb24 take 1 tablet by mouth every day losartan (COZAAR) 25 mg tablet take 1 tablet by mouth every day omeprazole (PRILOSEC) 40 mg capsule take 1 capsule by mouth every day VITAMIN B-12 1,000 mcg tab take 1 tablet by mouth every day ferrous sulfate 325 mg (65 mg iron) tablet take 1 tablet by mouth every day furosemide (LASIX) 20 mg tablet take 1 tablet by mouth every day levothyroxine (SYNTHROID) 50 mcg tablet take 1 tablet by mouth every day nystatin (MYCOSTATIN) powder APPLY 1 APPLICATION TO AFFECTED AREA THREE TIMES DAILY. APPLY TO AFFECTED AREA atenolol (TENORMIN) 50 mg tablet TAKE 1 TABLET BY MOUTH EVERY DAY fluticasone (FLONASE) 50 mcg/actuation nasal spray SPRAY 2 SPRAYS INTO EACH NOSTRIL EVERY DAY metFORMIN (GLUCOPHAGE) 500 mg tablet TAKE 1 TABLET BY MOUTH TWICE A DAY WITH MEALS potassium chloride SR (MICRO-K) 10 mEq CR capsule TAKE 1 CAPSULE BY MOUTH EVERY DAY NEEDED WITH LASIX Cyanocobalamin 1,000 mcg TbER Take 1 tablet by mouth once daily. Blood-Glucose Meter Use to test blood sugar blood sugar diagnostic (BLOOD GLUCOSE TEST) test strip Use to test blood sugar BID Lancets lancets Use to test blood sugar BID rosuvastatin (CRESTOR) 20 mg tablet Take 20 mg by mouth once daily. ACCU-CHEK KENROY PLUS TEST STRP test strip 1 STRIP TWICE DAILY. USE TO TEST BLOOD SUGAR TWICE A DAY cholecalciferol, vitamin D3, (VITAMIN D3 ORAL) Take by mouth. aspirin 81 mg chewable tablet Take 81 mg by mouth. Vitamin E, dl, acetate, (VITAMIN E) 400 unit capsule Take 800 Units by mouth. sulfamethoxazole-trimethoprim (BACTRIM DS) 800-160 mg per tablet Take 1 tablet by mouth two times a day for 7 days. furosemide (LASIX) 40 mg tablet Take 1 tablet by mouth once daily. citalopram (CELEXA) 20 mg tablet Take 0.5 tablets by mouth once daily for 7 days, THEN 1 tablet once daily. furosemide (LASIX) 20 mg tablet TAKE 1 TABLET BY MOUTH EVERY DAY (Patient not taking: Reported on 03/14/2023) benzonatate (TESSALON PERLE) 100 mg capsule (Patient not taking: Reported on 03/07/2023) MULTIVITAMIN (more content not included)...[facility] 12-07-2023 History of Present illness Narrative* Komal Cohn DO - 12/07/2023 10:32 AM EDT Images from the original note were not included. [facility] [place] Komal Cohn DO [address] [place] [address] Date of Evaluation: 12/07/2023 Patient Name: Mikel Winston : 1945 Chief Complaint: Patient presents with: Urinary Frequency: Burning with urination Confusion Leg Edema: Right lower leg, redness, blisters Nursing Intake: There are no exam notes on file for this visit. Subjective Ms. Winston is a 78 year old female who presents with the following complaint(s): The history is provided by the patient. No manager language was used. UTI This is a new problem. The problem has not changed since onset.The quality of the pain is describedas burning. There has been no fever. Pertinent negatives include no hematuria. Mental Status Changes This is a new problem. The problem has been gradually improving. Associated symptoms include fatigue. Pertinent negatives include no chest pain, coughing, headaches, numbness or weakness. Edema This is a recurrent problem. The problem occurs daily. The problem has been gradually worsening. Associated symptoms include fatigue. Pertinent negatives include no chest pain, coughing, headaches, numbness or weakness. Depression Pertinent negatives include no weakness. This is a recurrent problem. The problem has been gradually worsening since onset. Review of Systems Constitutional: Positive for fatigue. Negative for unexpected weight change. HENT: Negative for nosebleeds. Eyes: Negative for redness and visual disturbance. Respiratory: Negative for apnea, cough and shortness of breath. Cardiovascular: Positive for leg swelling. Negative for chest pain and palpitations. Genitourinary: Positive for dysuria. Negative for hematuria. Neurological: Negative for dizziness, weakness, light-headedness, numbness and headaches. Hematological: Does not bruise/bleed easily. Psychiatric/Behavioral: Positive for depression. The patient is not nervous/anxious. PAST MEDICAL HISTORY Diagnosis Date Anemia Diabetes (HCC) Diverticulosis Dysphagia FHx: colon cancer Hemorrhoids Hepatic flexure syndrome History of colon polyps Hypertension BARRON (nonalcoholic steatohepatitis) UTI (urinary tract infection) PAST SURGICAL HISTORY Procedure Laterality Date COLONOSCOPY 05/09/2012 TUBAL LIGATION HX FAMILY HISTORY Problem Relation Age of Onset Colon Cancer Mother other (Liver disease) Mother Social History Tobacco Use Smoking status: Former Smokeless tobacco: Never Vaping Use Vaping Use: Never used Substance Use Topics Alcohol use: No Drug use: No Current Outpatient Medications Medication Sig MYRBETRIQ 25 mg Tb24 take 1 tablet by mouth every day losartan (COZAAR) 25 mg tablet take 1 tablet by mouth every day omeprazole (PRILOSEC) 40 mg capsule take 1 capsule by mouth every day VITAMIN B-12 1,000 mcg tab take 1 tablet by mouth every day ferrous sulfate 325 mg (65 mg iron) tablet take 1 tablet by mouth every day furosemide (LASIX) 20 mg tablet take 1 tablet by mouth every day levothyroxine (SYNTHROID) 50 mcg tablet take 1 tablet by mouth every day nystatin (MYCOSTATIN) powder APPLY 1 APPLICATION TO AFFECTED AREA THREE TIMES DAILY. APPLY TO AFFECTED AREA atenolol (TENORMIN) 50 mg tablet TAKE 1 TABLET BY MOUTH EVERY DAY fluticasone (FLONASE) 50 mcg/actuation nasal spray SPRAY 2 SPRAYS INTO EACH NOSTRIL EVERY DAY metFORMIN (GLUCOPHAGE) 500 mg tablet TAKE 1 TABLET BY MOUTH TWICE A DAY WITH MEALS potassium chloride SR (MICRO-K) 10 mEq CR capsule TAKE 1 CAPSULE BY MOUTH EVERY DAY NEEDED WITH LASIX Cyanocobalamin 1,000 mcg TbER Take 1 tablet by mouth once daily. Blood-Glucose Meter Use to test blood sugar blood sugar diagnostic (BLOOD GLUCOSE TEST) test strip Use to test blood sugar BID Lancets lancets Use to test blood sugar BID rosuvastatin (CRESTOR) 20 mg tablet Take 20 mg by mouth once daily. ACCU-CHEK KENROY PLUS TEST STRP test strip 1 STRIP TWICE DAILY. USE TO TEST BLOOD SUGAR TWICE A DAY cholecalciferol, vitamin D3, (VITAMIN D3 ORAL) Take by mouth. aspirin 81 mg chewable tablet Take 81 mg by mouth. Vitamin E, dl, acetate, (VITAMIN E) 400 unit capsule Take 800 Units by mouth. sulfamethoxazole-trimethoprim (BACTRIM DS) 800-160 mg per tablet Take 1 tablet by mouth two times aday for 7 days. furosemide (LASIX) 40 mg tablet Take 1 tablet by mouth once daily. citalopram (CELEXA) 20 mg tablet Take 0.5 tablets by mouth once daily for 7 days, THEN 1 tablet once daily. furosemide (LASIX) 20 mg tablet TAKE 1 TABLET BY MOUTH EVERY DAY (Patient not taking: Reported on 03/14/2023) benzonatate (TESSALON PERLE) 100 mg capsule (Patient not taking: Reported on 03/07/2023) MULTIVITAMIN ORAL Take by mouth. (Patient not taking: Reported on 11/22/2022) No current facility-administered medications for this visit. I have confirmed and edited as necessary the past medical, family and social histories, HPI, and ROS obtained by others. Objective BP 118/60 Pulse 80 Temp 98.2 Ht 5' 4 (1.63m) Wt 209 lb (94.8kg) SpO2 96% BMI 35.86 kg/(m^2). Physical Exam Vitals and nursing note reviewed. Constitutional: General: She is not in acute distress. Appearance: Normal appearance. She is well-developed. She is not ill-appearing. HENT: Head: Normocephalic. Right Ear: Tympanic membrane, ear canal and external ear normal. There is no impacted cerumen. Left Ear: Tympanic membrane, ear canal and external ear normal. There is no impacted cerumen. Nose: Nose normal. Mouth/Throat: Mouth: Mucous membranes are moist. Pharynx: Oropharynx is clear. Uvula midline. No oropharyngeal exudate or posterior oropharyngeal erythema. Eyes: General: Lids are normal. Vision grossly intact. Gaze aligned appropriately. No scleral icterus. Right eye: No discharge. Left eye: No discharge. Extraocular Movements: Extraocular movements intact. Conjunctiva/sclera: Conjunctivae normal. Pupils: Pupils are equal, round, and reactive to light. Neck: Thyroid: No thyroid mass, thyromegaly or thyroid tenderness. Vascular: No carotid bruit. Trachea: Trachea and phonation normal. Cardiovascular: Rate and Rhythm: Normal rate and regular rhythm. Pulses: Normal pulses. Heart sounds: Normal heart sounds. Pulmonary: Effort: Pulmonary effort is normal. Breath sounds: Normal breath sounds. Abdominal: General: Abdomen is flat. Bowel sounds are normal. Palpations: Abdomen is soft. Musculoskeletal: General: Normal range of motion. Right shoulder: Normal. Left shoulder: Normal. Cervical back: Normal, full passive range of motion without pain and neck supple. No tenderness. Nospinous process tenderness. Thoracic back: Normal. Lumbar back: Normal. Right knee: Normal. Left knee: Normal. Right lower leg: Edema present. Left lower leg: Edema present. Lymphadenopathy: Cervical: No cervical adenopathy. Skin: General: Skin is warm and dry. Neurological: General: No focal deficit present. Mental Status: She is alert and oriented to person, place, and time. Mental status is at baseline. Sensory: Sensation is intact. Motor: Motor function is intact. Psychiatric: Attention and Perception: Attention and perception normal. Mood and Affect: Mood normal. Speech: Speech normal. Behavior: Behavior normal. Thought Content: Thought content normal. Judgment: Judgment normal. Data Reviewed: Most recent labs ASSESSMENT/PLAN: 1. Dysuria - ICD9: 788.1, ICD10: R30.0 (primary diagnosis) acute - UA DIP, URINE (POC) 2. Bilateral leg edema - ICD9: 782.3, ICD10: R60.0 - Increase Lasix - Check BMP in 1 week - FUROSEMIDE 40 MG TABLET - BASIC METABOLIC PANEL 3. Acute UTI - ICD9: 599.0, ICD10: N39.0 acute - SULFAMETHOXAZOLE 800 MG-TRIMETHOPRIM 160 MG TABLET 4. Other depression - ICD9: 311, ICD10: F32.89 - Start Citalopram - CITALOPRAM 20 MG TABLET 5. Chronic kidney disease, stage 3b (HCC) - ICD9: 585.3, ICD10: N18.32 Return in about 4 weeks (around 01/04/2024) for medication follow up. Attestation: Scribe Attestation: The patient is seen and examined by Dr. Cohn and the following reflects his/her service. Scribed by Melanie Ellsworth December 07, 2023 10:54 AMProvider Attestation: I, Komal Cohn DO personally performed the services described in this documentation. All medical record entries made by the scribe were at my direction and in my presence. I have reviewed the chart and discharge instructions (if applicable) and agree that the record reflects my personal per formance and is accurate and complete. Electronically Signed: Komal Cohn DO, 2023 10:52 PM documented in this encounterTrumbull [facility]02-21-2024 Miscellaneous Notes* Telephone Encounter - Marilin Rosales LPN - 09/28/2023 4:09 PM EST Pharmacy faxed requesting the following refill Refill(s) Requested: Requested Prescriptions Pending Prescriptions Disp Refills MYRBETRIQ 25 mg Tb24 [Pharmacy Med Name: MYRBETRIQ ER 25 MG TABLET] 90 tablet 1 Sig: take 1 tablet by mouth every day ALLERGIES Allergen Reactions Codeine Hives, Rash Codeine Sulfate Unknown (home) [phone] (cell) Last Office Visit Date: 06/27/2023 Last [facility] Health Visit: Visit date not found Future Appointment: Visit date not found The patients preferred pharmacy has been captured for this encounter? yes Request is for script(s) to be escript to pharmacy. Mrailin Rosales LPN documented in this encounterTrumbull [facility]01-15-2024 NoteHNO ID: [id number] Author: GOGO BARBOSA RN Service: ? Author Type: Registered Nurse Type: Progress Notes Filed: 08/22/2023 15:11 Note Text: POPULATION HEALTH NAVIGATION OUTREACH Action/FYI Patient Identified by Name and : YES, Outreach Outcome/Action Chart reviewed and record for caregap Controlling Blood Pressure uploaded to [email or web address]. Reason for Outreach Care Gap or Scheduling/Wellness visits Payer: Payor: Support Your App / Plan: [employer] HMO / Product Type: HMO / Care Gap Reviewed:: Controlling Blood Pressure Navigation Signature: Gogo Barbosa RN August 22, 2023 3:08 [facility]01-15-2024 NotePatient Outreach (AGACM) MIKEL WINSTON ([id number]) 1945 F Date Time Provider Department 08/22/23 GOGO BARBOSA [facility] During your visit today, we recorded the following information about you: Gogo Barbosa RN 08/22/2023 3:11 PM Signed POPULATION HEALTH NAVIGATION OUTREACH Action/FYI Patient Identified by Name and : YES, Outreach Outcome/Action Chart reviewed and record for caregap Controlling Blood Pressure uploaded to [email or web address]. Reason for Outreach Care Gap or Scheduling/Wellness visits Payer: Payor: Support Your App / Plan: [employer] ADVANTAGE HMO / Product Type: HMO / Care Gap Reviewed:: Controlling Blood Pressure Navigation Signature: Gogo Barbosa RN August 22, 2023 3:08 PM Allergies As of Date: 08/22/2023 Noted Allergy Reaction CODEINE 02/24/2016 4 - Hives 2 - Rash CODEINE SULFATE 06/13/2018 16 - Unknown Date Reviewed: 06/27/2023 Reviewed by: Arnel Govea LPN - Fully Assessed Reason for Visit: Population Health Navigation Outreach [3910] Cmt: Aroldo Attributed Member - Chart Review Prescriptions as of 08/22/2023 - furosemide (LASIX) 20 mg tablet take 1 tablet by mouth every day - losartan (COZAAR) 25 mg tablet take 1 tablet by mouth every day - levothyroxine (SYNTHROID) 50 mcg tablet take 1 tablet by mouth every day - mirabegron (MYRBETRIQ) 25 mg Tb24 Take 25 mg by mouth once daily. - VITAMIN B-12 1,000 mcg tab Take 1 tablet by mouth every afternoon. - omeprazole (PRILOSEC) 40 mg capsule TAKE 1 CAPSULE BY MOUTH EVERY DAY - ferrous sulfate 325 mg (65 mg iron) tablet TAKE 1 TABLET BY MOUTH EVERY DAY - nystatin (MYCOSTATIN) powder APPLY 1 APPLICATION TO AFFECTED AREA THREE TIMES DAILY. APPLY TO AFFECTED AREA - atenolol (TENORMIN) 50 mg tablet TAKE 1 TABLET BY MOUTH EVERY DAY - fluticasone (FLONASE) 50 mcg/actuation nasal spray SPRAY 2 SPRAYS INTO EACH NOSTRIL EVERY DAY - metFORMIN (GLUCOPHAGE) 500 mg tablet TAKE 1 TABLET BY MOUTH TWICE A DAY WITH MEALS - furosemide (LASIX) 20 mg tablet TAKE 1 TABLET BY MOUTH EVERY DAY - potassium chloride SR (MICRO-K) 10 mEq CR capsule TAKE 1 CAPSULE BY MOUTH EVERY DAY NEEDED WITH LASIX - Cyanocobalamin 1,000 mcg TbER Take 1 tablet by mouth once daily. - Blood-Glucose Meter Use to test blood sugar - blood sugar diagnostic (BLOOD GLUCOSE TEST) test strip Use to test blood sugar BID - Lancets lancets Use to test blood sugar BID - rosuvastatin (CRESTOR) 20 mg tablet Take 20 mg by mouth once daily. - benzonatate (TESSALON PERLE) 100 mg capsule - ACCU-CHEK KENROY PLUS TEST STRP test strip 1 STRIP TWICE DAILY. USE TO TEST BLOOD SUGAR TWICE A DAY - MULTIVITAMIN ORAL Take by mouth. - cholecalciferol, vitamin D3, (VITAMIN D3 ORAL) Take by mouth. - aspirin 81 mg chewable tablet Take 81 mg by mouth. - Vitamin E, dl, acetate, (VITAMIN E) 400 unit capsule Take 800 Units by mouth. Problem List As Of Date 08/22/2023 Noted Resolved Hypertension [I10] Hyperlipidemia, mixed [E78.2] 08/28/2020 Diabetes (HCC) [E11.9] 08/28/2020 Generalized edema [R60.1] 08/28/2020 Hypothyroidism, acquired [E03.9] 08/28/2020 History of DVT (deep vein thrombosis) [Z86.718] 08/28/2020 Nocturnal hypoxia [G47.34] 08/28/2020 Seasonal allergies [J30.2] 11/26/2020 Blood infection [B99.9] 01/24/2022 Bilateral leg edema [R60.0] 05/03/2022 Chronic kidney disease, stage 3b (HCC) [N18.32] 12/01/2022 Acute deep vein thrombosis (DVT) of other speci*12/01/2022 Congestive heart failure, unspecified HF chroni*12/01/2022 Angina at rest ([facility]) [I20.89] 12/01/2022 Obesity, Class I, BMI 30-34.9 [E66.9] 12/01/2022 Systolic murmur [R01.1] 12/26/2022 Platelets decreased ([facility]) [D69.6] 12/26/2022 Encounter Status:Closed by GOGO BARBOSA on 08/22/23[facility] 07-26-2023 Miscellaneous Notes* Telephone Encounter - Arnel Govea LPN - 07/26/2023 9:38 AM EST Pharmacy faxed requesting the following refill Refill(s) Requested: Requested Prescriptions Pending Prescriptions Disp Refills furosemide (LASIX) 20 mg tablet [Pharmacy Med Name: FUROSEMIDE 20 MG TABLET] 90 tablet 0 Sig: take 1 tablet by mouth every day ALLERGIES Allergen Reactions Codeine Hives, Rash Codeine Sulfate Unknown (home) [phone] (cell) Last Office Visit Date: 06/27/2023 Last Distance Health Visit: Visit date not found Future Appointment: Visit date not found The patients preferred pharmacy has been captured for this encounter? yes Request is for script(s) to be escript to pharmacy. Arnel Govea LPN [facility] Miscellaneous Notes* Telephone Encounter - Marilin Rosales LPN - 07/14/2023 8:05 AM EST Pharmacy faxed requesting the following refill Refill(s) Requested: Requested Prescriptions Pending Prescriptions Disp Refills losartan (COZAAR) 25 mg tablet [Pharmacy Med Name: LOSARTAN POTASSIUM 25 MG TAB] 90 tablet 0 Sig: take 1 tablet by mouth every day ALLERGIES Allergen Reactions Codeine Hives, Rash Codeine Sulfate Unknown (home) [phone] (cell) Last Office Visit Date: 06/27/2023 Last [facility] Health Visit: Visit date not found Future Appointment: Visit date not found The patients preferred pharmacy has been captured for this encounter? yes Request is for script(s) to be escript to pharmacy. Marilin Rosales LPN documented in [facility]Tr[facility]11-27-2023 Miscellaneous Notes* Telephone Encounter - Arnel Govea LPN - 07/04/2023 1:58 PM EST Called patient, no answer. Phone rings and rings * Telephone Encounter - Komal Cohn DO - 07/04/2023 1:17 PM EST Needs ampx uti sent * Telephone Encounter - Marilin Rosales LPN - 06/29/2023 11:56 AM EST Urine culture was ordered at office visit on 06/27/23. Shows preliminary results. * Telephone Encounter - Marilin Rosales LPN - 06/29/2023 11:56 AM EST ----- Message from Komal Cohn DO sent at 06/29/2023 11:53 AM EST ----- Get urine culture ordered I think I sent? documented in this encounterTr[facility]11-26-2023 Evaluation note* Diagnosis Type 2 diabetes mellitus with stage 3 chronic kidney disease, without long-term current use of insulin, unspecified whether stage 3a or 3b CKD (HCC)- Primary Primary hypertension Unspecified essential hypertension Recurrent UTI (urinary tract infection) Urinary tract infection, site not specified Heart murmur Undiagnosed cardiac murmurs Obesity, Class I, BMI 30-34.9 Obesity, unspecified documented in this encounter [facility] History of Present illness Narrative* Komal Cohn DO - 06/27/2023 11:04 AM EST Images from the original note were not included. [facility] [place] Komal Cohn DO [address] [place] [address] Date of Evaluation: 06/27/2023 Patient Name: Mikel Winston : 1945 Chief Complaint: Patient presents with: F/U 3 Month Diabetes Hypertension Nursing Intake: There are no exam notes on file for this visit. Subjective Ms. Winston is a 77 year old female who presents with the following complaint(s): The history is provided by the patient. No manager language was used. Diabetes She presents for her follow-up diabetic visit. She has type 2 diabetes mellitus. Pertinent negatives for hypoglycemia include no dizziness, headaches or nervousness/anxiousness. Pertinent negatives for diabetes include no chest pain, no fatigue and no weakness. Hypertension This is a chronic problem. The current episode started more than 1 year ago. Pertinent negatives include no chest pain, headaches, palpitations or shortness of breath. Review of Systems Constitutional: Negative for fatigue and unexpected weight change. HENT: Negative for nosebleeds. Eyes: Negative for redness and visual disturbance. Respiratory: Negative for apnea, cough and shortness of breath. Cardiovascular: Negative for chest pain, palpitations and leg swelling. Genitourinary: Negative for hematuria. Neurological: Negative for dizziness, weakness, light-headedness, numbness and headaches. Hematological: Does not bruise/bleed easily. Psychiatric/Behavioral: The patient is not nervous/anxious. PAST MEDICAL HISTORY Diagnosis Date Anemia Diabetes (HCC) Diverticulosis Dysphagia FHx: colon cancer Hemorrhoids Hepatic flexure syndrome History of colon polyps Hypertension BARRON (nonalcoholic steatohepatitis) UTI (urinary tract infection) PAST SURGICAL HISTORY Procedure Laterality Date COLONOSCOPY 05/09/2012 TUBAL LIGATION HX FAMILY HISTORY Problem Relation Age of Onset Colon Cancer Mother other (Liver disease) Mother Social History Tobacco Use Smoking status: Former Smokeless tobacco: Never Vaping Use Vaping Use: Never used Substance Use Topics Alcohol use: No Drug use: No Current Outpatient Medications Medication Sig levothyroxine (SYNTHROID) 50 mcg tablet take 1 tablet by mouth every day mirabegron (MYRBETRIQ) 25 mg Tb24 Take 25 mg by mouth once daily. furosemide (LASIX) 20 mg tablet Take 1 tablet by mouth once daily. omeprazole (PRILOSEC) 40 mg capsule TAKE 1 CAPSULE BY MOUTH EVERY DAY losartan (COZAAR) 25 mg tablet TAKE 1 TABLET BY MOUTH EVERY DAY ferrous sulfate 325 mg (65 mg iron) tablet TAKE 1 TABLET BY MOUTH EVERY DAY nystatin (MYCOSTATIN) powder APPLY 1 APPLICATION TO AFFECTED AREA THREE TIMES DAILY. APPLY TO AFFECTED AREA atenolol (TENORMIN) 50 mg tablet TAKE 1 TABLET BY MOUTH EVERY DAY fluticasone (FLONASE) 50 mcg/actuation nasal spray SPRAY 2 SPRAYS INTO EACH NOSTRIL EVERY DAY metFORMIN (GLUCOPHAGE) 500 mg tablet TAKE 1 TABLET BY MOUTH TWICE A DAY WITH MEALS potassium chloride SR (MICRO-K) 10 mEq CR capsule TAKE 1 CAPSULE BY MOUTH EVERY DAY NEEDED WITH LASIX Cyanocobalamin 1,000 mcg TbER Take 1 tablet by mouth once daily. Blood-Glucose Meter Use to test blood sugar blood sugar diagnostic (BLOOD GLUCOSE TEST) test strip Use to test blood sugar BID Lancets lancets Use to test blood sugar BID rosuvastatin (CRESTOR) 20 mg tablet Take 20 mg by mouth once daily. ACCU-CHEK KENROY PLUS TEST STRP test strip 1 STRIP TWICE DAILY. USE TO TEST BLOOD SUGAR TWICE A DAY cholecalciferol, vitamin D3, (VITAMIN D3 ORAL) Take by mouth. aspirin 81 mg chewable tablet Take 81 mg by mouth. Vitamin E, dl, acetate, (VITAMIN E) 400 unit capsule Take 800 Units by mouth. VITAMIN B-12 1,000 mcg tab Take 1 tablet by mouth every afternoon. (Patient not taking: Reported on03/14/2023) furosemide (LASIX) 20 mg tablet TAKE 1 TABLET BY MOUTH EVERY DAY (Patient not taking: Reported on 03/14/2023) benzonatate (TESSALON PERLE) 100 mg capsule (Patient not taking: Reported on 03/07/2023) MULTIVITAMIN ORAL Take by mouth. (Patient not taking: Reported on 11/22/2022) No current facility-administered medications for this visit. I have confirmed and edited as necessary the past medical, family and social histories, HPI, and ROS obtained by others. Objective BP 128/60 Pulse 67 Temp 97.5 Ht 5' 4 (1.63m) Wt 200 lb (90.7kg) SpO2 99% BMI 34.31 kg/(m^2). Physical Exam Vitals and nursing note reviewed. Constitutional: General: She is not in acute distress. Appearance: Normal appearance. She is well-developed. She is not ill-appearing. HENT: Head: Normocephalic. Right Ear: Tympanic membrane, ear canal and external ear normal. There is no impacted cerumen. Left Ear: Tympanic membrane, ear canal and external ear normal. There is no impacted cerumen. Nose: Nose normal. Mouth/Throat: Mouth: Mucous membranes are moist. Pharynx: Oropharynx is clear. Uvula midline. No oropharyngeal exudate or posterior oropharyngeal erythema. Eyes: General: Lids are normal. Vision grossly intact. Gaze aligned appropriately. No scleral icterus. Right eye: No discharge. Left eye: No discharge. Extraocular Movements: Extraocular movements intact. Conjunctiva/sclera: Conjunctivae normal. Pupils: Pupils are equal, round, and reactive to light. Neck: Thyroid: No thyroid mass, thyromegaly or thyroid tenderness. Vascular: No carotid bruit. Trachea: Trachea and phonation normal. Cardiovascular: Rate and Rhythm: Normal rate and regular rhythm. Pulses: Normal pulses. Heart sounds: Murmur heard. Pulmonary: Effort: Pulmonary effort is normal. Breath sounds: Normal breath sounds. Abdominal: General: Abdomen is flat. Bowel sounds are normal. Palpations: Abdomen is soft. Musculoskeletal: General: Normal range of motion. Right shoulder: Normal. Left shoulder: Normal. Cervical back: Normal, full passive range of motion without pain and neck supple. No tenderness. Nospinous process tenderness. Thoracic back: Normal. Lumbar back: Normal. Right knee: Normal. Left knee: Normal. Right lower leg: No edema. Left lower leg: No edema. Lymphadenopathy: Cervical: No cervical adenopathy. Skin: General: Skin is warm and dry. Neurological: General: No focal deficit present. Mental Status: She is alert and oriented to person, place, and time. Mental status is at baseline. Sensory: Sensation is intact. Motor: Motor function is intact. Psychiatric: Attention and Perception: Attention and perception normal. Mood and Affect: Mood normal. Speech: Speech normal. Behavior: Behavior normal. Thought Content: Thought content normal. Judgment: Judgment normal. Data Reviewed: No new labs ASSESSMENT/PLAN: 1. Type 2 diabetes mellitus with stage 3 chronic kidney disease, without long- term current use of insulin, unspecified whether stage 3a or 3b CKD (HCC) - ICD9: 250.40, 585.3, ICD10: E11.22, N18.30 (primary diagnosis) - Controlled - Continue current medications - HEMOGLOBIN A1C (POC) 2. Primary hypertension - ICD9: 401.9, ICD10: I10 - Controlled - Continue current medications - Recommend home blood pressure monitoring, to bring results to next visit - Encouraged sodium restriction, DASH or Mediterranean diet - Recommend regular aerobic exercise 3. Recurrent UTI (urinary tract infection) - ICD9: 599.0, ICD10: N39.0 -recurrent - Send Ua for culture - UA DIP, URINE (POC) - URINE CULTURE - URINE CULTURE 4. Heart murmur - ICD9: 785.2, ICD10: R01.1 - known 5. Obesity, Class I, BMI 30-34.9 - ICD9: 278.00, ICD10: E66.9 Komal Cohn DO Return in about 6 months (around 12/26/2023). Attestation: Scribe Statement: Vicenta Ellsworth am scribing for, and in the presence of, Komal Cohn DO June 27, 2023 1:19 PM. Physician Statement: Komal Anaya DO, personally performed the services described in the documentation, as scribed by Melanie Ellsworth in my presence, and it is both accurate and complete June 27, 2023 11:10 AM. documented in this encounterTr[facility]09-20-2023 Miscellaneous Notes* Telephone Encounter - Arnel Govea LPN - 04/27/2023 8:30 AM EDT Pharmacy faxed requesting the following refill Refill(s) Requested: Requested Prescriptions Pending Prescriptions Disp Refills levothyroxine (SYNTHROID) 50 mcg tablet [Pharmacy Med Name: LEVOTHYROXINE 50 MCG TABLET] 90 tablet 3 Sig: take 1 tablet by mouth every day ALLERGIES Allergen Reactions Codeine Hives, Rash Codeine Sulfate Unknown (home) [phone] (cell) Last Office Visit Date: 03/14/2023 Last [facility] Health Visit: Visit date not found Future Appointment: 06/13/2023 The patients preferred pharmacy has been captured for this encounter? yes Request is for script(s) to be escript to pharmacy. Arnel Govea LPN documented in this encounterTr[facility]08-[facility]23 History of Present illness Narrative* Jose Joel MD - 03/30/2023 10:40 AM EDT Images from the original note were not included. [facility] [address] [facility] [address] Dept: [phone] Dept Loc: [phone] DATE of SERVICE:03/30/23 TIME of SERVICE: 11:03 AM : 1945 Chief Complaint: Chief Complaint Patient presents with 6 Month Follow-up History of PresentIllness: Mikel Winston is a 77 y.o. female here for routine follow-up. She has a history of coronary artery disease, coronary artery bypass surgery 2009, aortic stenosis, percutaneous coronary interventionsto the left main, LAD, and circumflex in 2018, chronic kidney disease, mild left ventricular dysfunction. Her last echocardiogram was December 08, 2022 showing a left ventricular ejection fraction 45%, mean aortic valve gradient of 21, calculated aortic valve area of 1.1. She comes in today doing better than her last visit. She says that she usually does better in the summer months because she is more active. She has no chest pain or alarming exertional dyspnea or syncope or near syncope. She is patel ited mostly by back and leg pain. She has lower extremity edema. However, she says that her that ithas been. She has been instructed to drink as much water as possible. She tries to get 3 bottles ofwater in a day. She is reasonably prudent with salt in her diet. The last GFR that I have is 32, creatinine 1.6, hemoglobin 11.0, platelets 148. Past Medical History: Past Medical History: Diagnosis Date CAD (coronary artery disease) Cirrhosis of liver (HCC) Diabetes mellitus (HCC) Hypertension Osteoporosis Thyroid disease Past Surgical History Past Surgical History: Procedure Laterality Date APPENDECTOMY CHOLECYSTECTOMY CORONARY ARTERY BYPASS GRAFT TOTAL KNEE ARTHROPLASTY Right TUBAL LIGATION Family History Family History Problem Relation Name Age of Onset Stroke Father's Brother Diabetes Father Mental illness Mother Coronary artery disease Brother Social History Social History Tobacco Use Smoking status: Never Smokeless tobacco: Never Substance Use Topics Alcohol use: No Drug use: No Allergies: Allergies Allergen Reactions Codeine Hives Medications: Current Outpatient Medications: alpha tocopherol (Vitamin E) 100 units capsule, Take 100 Units by mouth daily., Disp: , Rfl: aspirin 81 MG EC tablet, Take 81 mg by mouth daily., Disp: , Rfl: atenolol (Tenormin) 50 MG tablet, Take 50 mg by mouth daily., Disp: , Rfl: Cholecalciferol (Vitamin D) 125 MCG (5000 UT) capsule, Take 5,000 Units by mouth daily., Disp: , Rfl: ferrous sulfate 325 (65 Fe) MG tablet, Take 325 mg by mouth daily (with breakfast)., Disp: , Rfl: furosemide (Lasix) 20 MG tablet, Take 20 mg by mouth daily., Disp: , Rfl: levothyroxine (Synthroid, Levoxyl) 50 MCG tablet, TAKE 1 TABLET BY MOUTH DAILY, Disp: 30 tablet, Rfl: 3 losartan (Cozaar) 25 MG tablet, Take 25 mg by mouth daily., Disp: , Rfl: metFORMIN (Glucophage) 500 MG tablet, Take 500 mg by mouth in the morning and 500 mg in the evening. Take with meals., Disp: , Rfl: mirabegron ER (Myrbetriq) 25 MG 24 hr tablet, Take 25 mg by mouth Nightly. Do not crush, chew, or split., Disp: , Rfl: omeprazole (PriLOSEC) [address] capsule, Take 40 mg by mouth every morning (before breakfast). Do not crush or chew., Disp: , Rfl: potassium chloride CR (Klor-Con M10) 10 MEQ ER tablet, Take 10 mEq by mouth daily. Do not crush or chew., Disp: , Rfl: rosuvastatin (Crestor) 20 MG tablet, Take 1 tablet (20 mg) by mouth daily., Disp: 90 tablet, Rfl: 3 Review of Systems: Review of Systems Constitutional: Positive for fatigue. Negative for activity change, chills, diaphoresis and fever. HENT: Negative for nosebleeds and trouble swallowing. Eyes: Negative for discharge and visual disturbance. Respiratory: Negative for apnea, cough, chest tightness, shortness of breath and wheezing. Cardiovascular: Positive for leg swelling. Negative for chest pain and palpitations. Gastrointestinal: Negative for abdominal distention, abdominal pain, blood in stool, diarrhea, nausea and vomiting. Endocrine: Negative for cold intolerance and heat intolerance. Genitourinary: Negative for hematuria. Musculoskeletal: Negative for gait problem and myalgias. Skin: Negative for color change and rash. Neurological: Positive for light-headedness. Negative for dizziness, seizures, syncope, facial asymmetry, speech difficulty, weakness, numbness and headaches. Hematological: Does not bruise/bleed easily. Psychiatric/Behavioral: Negative for dysphoric mood. Physical Examination: Vitals: Vitals: 03/30/23 1044 BP: 130/70 BP Location: Left arm Patient Position: Sitting BP Cuff Size: Large adult Pulse: 73 Resp: 16 SpO2: 96% Weight: 197 lb 6.4 oz (89.5 kg) Height: 5' 4 (1.626 m) Body mass index is 33.88 kg/m . Physical Exam She appears well. Her neck veins are normal. Her lungs are clear. She has a harsh grade 3 systolic murmur of aortic stenosis. Her second heart sound is audible. She has 2+ bilateral pitting pretibialedema. Laboratory Tests: Lab Results Component Value Date WBC 3.5 (L) 11/19/2022 HGB 9.3 (L) 11/19/2022 HCT 28.4 (L) 11/19/2022 MCV 95.0 11/19/2022 PLT 79 (L) 11/19/2022 Lab Results Component Value Date GLUCOSE 159 (H) 11/19/2022 CALCIUM 8.3 (L) 11/19/2022 NA 135 11/19/2022 K 3.7 11/19/2022 CO2 21 (L) 11/19/2022 CL 111 (H) 11/19/2022 BUN 30 (H) 11/19/2022 CREATININE 1.31 (H) 11/19/2022 @LASTCMP@ No results found for: CHLPL, CHOL No results found for: TRIG No results found for: HDL No results found for: LDLCALC, LDLDIRECT The last cholesterol that I have is 129, HDL 52, LDL 53 No components found for: LVEF, LVEFMODE Assessment and Plan: @DIAGREFRESH@ Medical decision making My assessment is that her aortic stenosis is moderate and probably asymptomatic. Her coronary disease is asymptomatic. Her edema is probably a combination of her heart disease, renal disease, and venous insufficiency. Diagnostically, sent no test. She has had blood test done just a few months ago. Therapeutically, Imade no changes. Educationally, I wrote down the terms aortic stenosis for her and asked her to watch for the symptoms of aortic stenosis. I told her she could always take an extra furosemide 3 days in a row if the edema becomes worse. I will see her back in 6 months. documented in this [facility]08-07-2023 History of Present illness Narrative* Komal Cohn DO - 03/14/2023 10:52 AM EDT Images from the original note were not included. [facility] Brandi Cohn DO [address] [place] [address] Date of Evaluation: 03/14/2023 Patient Name: Mikel Winston : 1945 Chief Complaint: Patient presents with: Follow Up: 1 week recheck swelling and redness. Patient states she has been watching her salt intake. Patient states has today and tomorrow left of antibiotic Nursing Intake: There are no exam notes on file for this visit. Subjective Ms. Winston is a 77 year old female who presents with the following complaint(s): The history is provided by the patient. No manager language was used. Edema This is a chronic problem. The problem occurs daily. The problem has been gradually improving (redness and swelling). Pertinent negatives include no chest pain, coughing, fatigue, headaches, numbnessor weakness. The symptoms are aggravated by eating (salt intake). Treatments tried: lasix. The treatment provided significant relief. Review of Systems Constitutional: Negative for fatigue and unexpected weight change. HENT: Negative for nosebleeds. Eyes: Negative for redness and visual disturbance. Respiratory: Negative for apnea, cough and shortness of breath. Cardiovascular: Negative for chest pain, palpitations and leg swelling. Genitourinary: Negative for hematuria. Neurological: Negative for dizziness, weakness, light-headedness, numbness and headaches. Hematological: Does not bruise/bleed easily. Psychiatric/Behavioral: The patient is not nervous/anxious. PAST MEDICAL HISTORY Diagnosis Date Anemia Diabetes (HCC) Diverticulosis Dysphagia FHx: colon cancer Hemorrhoids Hepatic flexure syndrome History of colon polyps Hypertension BARRON (nonalcoholic steatohepatitis) UTI (urinary tract infection) PAST SURGICAL HISTORY Procedure Laterality Date COLONOSCOPY 05/09/2012 TUBAL LIGATION HX FAMILY HISTORY Problem Relation Age of Onset Colon Cancer Mother other (Liver disease) Mother Social History Tobacco Use Smoking status: Former Smokeless tobacco: Never Vaping Use Vaping Use: Never used Substance Use Topics Alcohol use: No Drug use: No Current Outpatient Medications Medication Sig mirabegron (MYRBETRIQ) 25 mg Tb24 Take 25 mg by mouth once daily. cephALEXin (KEFLEX) 500 mg capsule Take 1 capsule by mouth four times daily for 7 days. furosemide (LASIX) 20 mg tablet Take 1 tablet by mouth once daily. omeprazole (PRILOSEC) 40 mg capsule TAKE 1 CAPSULE BY MOUTH EVERY DAY losartan (COZAAR) 25 mg tablet TAKE 1 TABLET BY MOUTH EVERY DAY ferrous sulfate 325 mg (65 mg iron) tablet TAKE 1 TABLET BY MOUTH EVERY DAY nystatin (MYCOSTATIN) powder APPLY 1 APPLICATION TO AFFECTED AREA THREE TIMES DAILY. APPLY TO AFFECTED AREA atenolol (TENORMIN) 50 mg tablet TAKE 1 TABLET BY MOUTH EVERY DAY fluticasone (FLONASE) 50 mcg/actuation nasal spray SPRAY 2 SPRAYS INTO EACH NOSTRIL EVERY DAY metFORMIN (GLUCOPHAGE) 500 mg tablet TAKE 1 TABLET BY MOUTH TWICE A DAY WITH MEALS potassium chloride SR (MICRO-K) 10 mEq CR capsule TAKE 1 CAPSULE BY MOUTH EVERY DAY NEEDED WITH LASIX Cyanocobalamin 1,000 mcg TbER Take 1 tablet by mouth once daily. Blood-Glucose Meter Use to test blood sugar blood sugar diagnostic (BLOOD GLUCOSE TEST) test strip Use to test blood sugar BID Lancets lancets Use to test blood sugar BID levothyroxine (SYNTHROID) 50 mcg tablet TAKE 1 TABLET BY MOUTH EVERY DAY rosuvastatin (CRESTOR) 20 mg tablet Take 20 mg by mouth once daily. ACCU-CHEK KENROY PLUS TEST STRP test strip 1 STRIP TWICE DAILY. USE TO TEST BLOOD SUGAR TWICE A DAY cholecalciferol, vitamin D3, (VITAMIN D3 ORAL) Take by mouth. aspirin 81 mg chewable tablet Take 81 mg by mouth. Vitamin E, dl, acetate, (VITAMIN E) 400 unit capsule Take 800 Units by mouth. VITAMIN B-12 1,000 mcg tab Take 1 tablet by mouth every afternoon. (Patient not taking: Reported on03/14/2023) furosemide (LASIX) 20 mg tablet TAKE 1 TABLET BY MOUTH EVERY DAY (Patient not taking: Reported on 03/14/2023) benzonatate (TESSALON PERLE) 100 mg capsule (Patient not taking: Reported on 03/07/2023) MULTIVITAMIN ORAL Take by mouth. (Patient not taking: Reported on 11/22/2022) No current facility-administered medications for this visit. I have confirmed and edited as necessary the past medical, family and social histories, HPI, and ROS obtained by others. Objective BP 142/68 Pulse 66 Temp 97.6 Ht 5' 4 (1.63m) Wt 196 lb (88.9kg) SpO2 99% BMI 33.63 kg/(m^2). Physical Exam Vitals and nursing note reviewed. Constitutional: General: She is not in acute distress. Appearance: Normal appearance. She is well-developed. She is not ill-appearing. HENT: Head: Normocephalic. Right Ear: Tympanic membrane, ear canal and external ear normal. There is no impacted cerumen. Left Ear: Tympanic membrane, ear canal and external ear normal. There is no impacted cerumen. Nose: Nose normal. Mouth/Throat: Mouth: Mucous membranes are moist. Pharynx: Oropharynx is clear. Uvula midline. No oropharyngeal exudate or posterior oropharyngeal erythema. Eyes: General: Lids are normal. Vision grossly intact. Gaze aligned appropriately. No scleral icterus. Right eye: No discharge. Left eye: No discharge. Extraocular Movements: Extraocular movements intact. Conjunctiva/sclera: Conjunctivae normal. Pupils: Pupils are equal, round, and reactive to light. Neck: Thyroid: No thyroid mass, thyromegaly or thyroid tenderness. Vascular: No carotid bruit. Trachea: Trachea and phonation normal. Cardiovascular: Rate and Rhythm: Normal rate and regular rhythm. Pulses: Normal pulses. Heart sounds: Normal heart sounds. Pulmonary: Effort: Pulmonary effort is normal. Breath sounds: Normal breath sounds. Abdominal: General: Abdomen is flat. Bowel sounds are normal. Palpations: Abdomen is soft. Musculoskeletal: General: Normal range of motion. Right shoulder: Normal. Left shoulder: Normal. Cervical back: Normal, full passive range of motion without pain and neck supple. No tenderness. Nospinous process tenderness. Thoracic back: Normal. Lumbar back: Normal. Right knee: Normal. Left knee: Normal. Right lower leg: Edema present. Left lower leg: Edema present. Legs: Lymphadenopathy: Cervical: No cervical adenopathy. Skin: General: Skin is warm and dry. Neurological: General: No focal deficit present. Mental Status: She is alert and oriented to person, place, and time. Mental status is at baseline. Sensory: Sensation is intact. Motor: Motor function is intact. Psychiatric: Attention and Perception: Attention and perception normal. Mood and Affect: Mood normal. Speech: Speech normal. Behavior: Behavior normal. Thought Content: Thought content normal. Judgment: Judgment normal. Data Reviewed: Most recent labs ASSESSMENT/PLAN: 1. Bilateral leg edema - ICD9: 782.3, ICD10: R60.0 (primary diagnosis) - Improving - Continue Lasix - Continue wearing compression hose - Advised to elevate legs - Reduce salt intake 2. Cellulitis of skin - ICD9: 682.9, ICD10: L03.90 -Improved with PO antibiotic 3. Class 1 obesity with body mass index (BMI) of 33.0 to 33.9 in adult, unspecified obesity type, unspecified whether serious comorbidity present - ICD9: 278.00, V85.33, ICD10: E66.9, Z68.33 Komal Cohn DO Return in about 3 months (around 06/14/2023) for medication follow up. Attestation: Scribe Statement: I Melanie Ellsworth am scribing for, and in the presence of, Komal Cohn DO March 14, 2023 11:11 AM. Physician Statement: I, Komal Cohn DO, personally performed the services described in the documentation, as scribed by Melanie Ellsworth in my presence, and it is both accurate and complete March 14, 2023 11:14 AM. documented in this encounterTrumbull [facility]08-01-2023 Miscellaneous Notes* Telephone Encounter - Grace Linda LPN - 03/08/2023 2:03 PM EDT Pt notified of results and verbalized understanding. * Telephone Encounter - Komal Cohn DO - 03/08/2023 10:45 AM EDT No deep vein clot just do what we discussed yesterday, documented in this encounterTrumbull [facility] Hospital07-31-2023 Miscellaneous Notes* Telephone Encounter - Marilin Rosales LPN - 03/07/2023 3:04 PM EDT Pharmacy faxed requesting the following refill Refill(s) Requested: Requested Prescriptions Pending Prescriptions Disp Refills omeprazole (PRILOSEC) 40 mg capsule [Pharmacy Med Name: OMEPRAZOLE DR 40 MG CAPSULE] 90 capsule 1 Sig: TAKE 1 CAPSULE BY MOUTH EVERY DAY losartan (COZAAR) 25 mg tablet [Pharmacy Med Name: LOSARTAN POTASSIUM 25 MG TAB] 90 tablet 0 Sig: TAKE 1 TABLET BY MOUTH EVERY DAY ferrous sulfate 325 mg (65 mg iron) tablet [Pharmacy Med Name: FERROUS SULFATE 325 MG TABLET] 90 tablet 1 Sig: TAKE 1 TABLET BY MOUTH EVERY DAY ALLERGIES Allergen Reactions Codeine Hives, Rash Codeine Sulfate Unknown (home) [phone] (cell) Last Office Visit Date: 03/07/2023 Last [facility] Health Visit: Visit date not found Future Appointment: 06/13/2023 The patients preferred pharmacy has been captured for this encounter? yes Request is for script(s) to be escript to pharmacy. Marilin Rosales LPN documented in this encounterTrumbull [facility]07-31-2023 History of Present illness Narrative* Komal Cohn, - 03/07/2023 11:12 AM EDT Images from the original note were not included. [facility] [place] Komal Cohn DO [address] [place] [address] Date of Evaluation: 03/07/2023 Patient Name: Mikel Winston : 1945 Chief Complaint: Patient presents with: Swelling: Right leg swelling and redness. Left foot swelling. Urinary Frequency Nursing Intake: There are no exam notes on file for this visit. Subjective Ms. Winston is a 77 year old female who presents with the following complaint(s): The history is provided by the patient. No manager language was used. Edema This is a recurrent problem. The problem occurs daily. The problem has been gradually worsening. Associated symptoms include a rash. Pertinent negatives include no chest pain, coughing, fatigue, headaches, numbness or weakness. Review of Systems Constitutional: Negative for fatigue and unexpected weight change. HENT: Negative for nosebleeds. Eyes: Negative for redness and visual disturbance. Respiratory: Negative for apnea, cough and shortness of breath. Cardiovascular: Negative for chest pain, palpitations and leg swelling. Genitourinary: Negative for hematuria. Skin: Positive for rash. Neurological: Negative for dizziness, weakness, light-headedness, numbness and headaches. Hematological: Does not bruise/bleed easily. Psychiatric/Behavioral: The patient is not nervous/anxious. PAST MEDICAL HISTORY Diagnosis Date Anemia Diabetes (HCC) Diverticulosis Dysphagia FHx: colon cancer Hemorrhoids Hepatic flexure syndrome History of colon polyps Hypertension BARRON (nonalcoholic steatohepatitis) UTI (urinary tract infection) PAST SURGICAL HISTORY Procedure Laterality Date COLONOSCOPY 05/09/2012 TUBAL LIGATION HX FAMILY HISTORY Problem Relation Age of Onset Colon Cancer Mother other (Liver disease) Mother Social History Tobacco Use Smoking status: Former Smokeless tobacco: Never Vaping Use Vaping Use: Never used Substance Use Topics Alcohol use: No Drug use: No Current Outpatient Medications Medication Sig mirabegron (MYRBETRIQ) 25 mg Tb24 Take 25 mg by mouth once daily. VITAMIN B-12 1,000 mcg tab Take 1 tablet by mouth every afternoon. nystatin (MYCOSTATIN) powder APPLY 1 APPLICATION TO AFFECTED AREA THREE TIMES DAILY. APPLY TO AFFECTED AREA atenolol (TENORMIN) 50 mg tablet TAKE 1 TABLET BY MOUTH EVERY DAY fluticasone (FLONASE) 50 mcg/actuation nasal spray SPRAY 2 SPRAYS INTO EACH NOSTRIL EVERY DAY metFORMIN (GLUCOPHAGE) 500 mg tablet TAKE 1 TABLET BY MOUTH TWICE A DAY WITH MEALS furosemide (LASIX) 20 mg tablet TAKE 1 TABLET BY MOUTH EVERY DAY losartan (COZAAR) 25 mg tablet TAKE 1 TABLET BY MOUTH EVERY DAY potassium chloride SR (MICRO-K) 10 mEq CR capsule TAKE 1 CAPSULE BY MOUTH EVERY DAY NEEDED WITH LASIX Cyanocobalamin 1,000 mcg TbER Take 1 tablet by mouth once daily. Blood-Glucose Meter Use to test blood sugar blood sugar diagnostic (BLOOD GLUCOSE TEST) test strip Use to test blood sugar BID Lancets lancets Use to test blood sugar BID ferrous sulfate 325 mg (65 mg iron) tablet TAKE 1 TABLET BY MOUTH EVERY DAY omeprazole (PRILOSEC) 40 mg capsule TAKE 1 CAPSULE BY MOUTH EVERY DAY levothyroxine (SYNTHROID) 50 mcg tablet TAKE 1 TABLET BY MOUTH EVERY DAY rosuvastatin (CRESTOR) 20 mg tablet Take 20 mg by mouth once daily. ACCU-CHEK KENROY PLUS TEST STRP test strip 1 STRIP TWICE DAILY. USE TO TEST BLOOD SUGAR TWICE A DAY cholecalciferol, vitamin D3, (VITAMIN D3 ORAL) Take by mouth. aspirin 81 mg chewable tablet Take 81 mg by mouth. Vitamin E, dl, acetate, (VITAMIN E) 400 unit capsule Take 800 Units by mouth. cephALEXin (KEFLEX) 500 mg capsule Take 1 capsule by mouth four times daily for 7 days. furosemide (LASIX) 20 mg tablet Take 1 tablet by mouth once daily. benzonatate (TESSALON PERLE) 100 mg capsule (Patient not taking: Reported on 03/07/2023) MULTIVITAMIN ORAL Take by mouth. (Patient not taking: Reported on 11/22/2022) No current facility-administered medications for this visit. I have confirmed and edited as necessary the past medical, family and social histories, HPI, and ROS obtained by others. Objective BP 130/60 Pulse 61 Temp 98.2 Ht 5' 4 (1.63m) Wt 198 lb (89.8kg) SpO2 98% BMI 33.97 kg/(m^2). Physical Exam Vitals and nursing note reviewed. Constitutional: General: She is not in acute distress. Appearance: Normal appearance. She is well-developed. She is not ill-appearing. HENT: Head: Normocephalic. Right Ear: Tympanic membrane, ear canal and external ear normal. There is no impacted cerumen. Left Ear: Tympanic membrane, ear canal and external ear normal. There is no impacted cerumen. Nose: Nose normal. Mouth/Throat: Mouth: Mucous membranes are moist. Pharynx: Oropharynx is clear. Uvula midline. No oropharyngeal exudate or posterior oropharyngeal erythema. Eyes: General: Lids are normal. Vision grossly intact. Gaze aligned appropriately. No scleral icterus. Right eye: No discharge. Left eye: No discharge. Extraocular Movements: Extraocular movements intact. Conjunctiva/sclera: Conjunctivae normal. Pupils: Pupils are equal, round, and reactive to light. Neck: Thyroid: No thyroid mass, thyromegaly or thyroid tenderness. Vascular: No carotid bruit. Trachea: Trachea and phonation normal. Cardiovascular: Rate and Rhythm: Normal rate and regular rhythm. Pulses: Normal pulses. Heart sounds: Normal heart sounds. Pulmonary: Effort: Pulmonary effort is normal. Breath sounds: Normal breath sounds. Abdominal: General: Abdomen is flat. Bowel sounds are normal. Palpations: Abdomen is soft. Musculoskeletal: General: Normal range of motion. Right shoulder: Normal. Left shoulder: Normal. Cervical back: Normal, full passive range of motion without pain and neck supple. No tenderness. Nospinous process tenderness. Thoracic back: Normal. Lumbar back: Normal. Right knee: Normal. Left knee: Normal. Right lower leg: No edema. Left lower leg: No edema. Lymphadenopathy: Cervical: No cervical adenopathy. Skin: General: Skin is warm and dry. Neurological: General: No focal deficit present. Mental Status: She is alert and oriented to person, place, and time. Mental status is at baseline. Sensory: Sensation is intact. Motor: Motor function is intact. Psychiatric: Attention and Perception: Attention and perception normal. Mood and Affect: Mood normal. Speech: Speech normal. Behavior: Behavior normal. Thought Content: Thought content normal. Judgment: Judgment normal. Data Reviewed: No new labs ASSESSMENT/PLAN: 1. Urinary frequency - ICD9: 788.41, ICD10: R35.0 (primary diagnosis) - UA normal - UA DIP, URINE (POC) 2. Bilateral leg edema - ICD9: 782.3, ICD10: R60.0 - Start Lasix 20mg - advised to wear compression hose daily - FUROSEMIDE 20 MG TABLET 3. Class 1 obesity with body mass index (BMI) of 33.0 to 33.9 in adult, unspecified obesity type, unspecified whether serious comorbidity present - ICD9: 278.00, V85.33, ICD10: E66.9, Z68.33 4. Right leg swelling - ICD9: 729.81, ICD10: M79.89 - Obtain STAT US - US DVT LOWER RIGHT 5. Cellulitis of skin - ICD9: 682.9, ICD10: L03.90 - Begin treatment with Cephalaxin (Keflex) - CEPHALEXIN 500 MG CAPSULE Return in about 1 week (around 03/14/2023) for medication follow up. Komal Cohn DO Attestation: Scribe Statement: Vicenta Ellsworth am scribing for, and in the presence of, Komal Cohn DO March 07, 2023 11:26AM. Physician Statement: I, Komal Cohn DO, personally performed the services described in the documentation, as scribed by Melanie Ellsworth in my presence, and it is both accurate and complete March 07, 2023 11:33 AM. documented in this encounterTrumbull [facility]07-26-2023 Miscellaneous Notes* Telephone Encounter - Lexi Tigist - 03/02/2023 4:09 PM EDT Returned Pt's call. Asked her if she would like to speak to a nurse. Pt declined. She just wanted an appt. No same day appts open today as Dr Cohn is out by noon on Wednesdays. Scheduled Pt next day appt. Advised Pt she can speak to a nurse and/or to go to the ER if the symptoms worsen especially the swollen leg. Pt said she will be fine waiting until tomorrow. She will call in the morning ifshe cannot get a ride to reschedule. * Telephone Encounter - ChetanshyannTigist - 03/02/2023 4:09 PM EDT ----- Message from Seema Malik sent at 03/02/2023 3:44 PM EDT ----- Regarding: Medicine / Komal Cohn/ leg swelling in 1 leg with rash, possible UTI as well---unable to schedule same day or for the UTI Patient has been identified by name and Date of (Y/N): y Patient: Mikel Winston Date of : 1945 Provider for this encounter: Komal Cohn DO Reason for the call/escalation: leg swelling in 1 leg with rash, possible UTI as well---unable to schedule same day or for the UTI Was Patient Referred to [facility]/Seek Emergency Treatment (Y/N): no Did Patient Agree (Y/N): n/a Was An Attempt Made To Transfer The Patient To The Office (Y/N): no Were You Able To Reach Someone At The Office (Y/N): n/a If Yes - Patient Was Transferred To (Caregivers Name): n/a If No - Which [facility] Leadership Supervisor [employer] Did You Speak With Regarding This Patient: n/a Was an appointment scheduled (Y/N): no-unable to schedule same day Reason patient was requesting visit (RFV/signs and symptoms/diagnosis) : leg swelling in 1 leg withrash, possible UTI as well---unable to schedule same day or for the UTI Person calling if other than patient: n/a Return call to if other than patient: n/a Best contact number: [phone] Thank you, Seema Malik March 02, 2023 3:44 PM documented in this encounterTrumbull [facility]07-17-2023 Miscellaneous Notes* Telephone Encounter - Arnel Govea LPN - 02/21/2023 9:23 AM EDT Pharmacy faxed requesting the following refill Refill(s) Requested: Requested Prescriptions Pending Prescriptions Disp Refills nystatin (MYCOSTATIN) powder [Pharmacy Med Name: NYSTATIN 100,000 UNIT/GM POWD] 60 g 3 Sig: APPLY 1 APPLICATION TO AFFECTED AREA THREE TIMES DAILY. APPLY TO AFFECTED AREA ALLERGIES Allergen Reactions Codeine Hives, Rash Codeine Sulfate Unknown (home) [phone] (cell) Last Office Visit Date: 12/13/2022 Last [facility] Health Visit: Visit date not found Future Appointment: 06/13/2023 The patients preferred pharmacy has been captured for this encounter? yes Request is for script(s) to be escript to pharmacy. Arnel Govea LPN documented in this encounterTrumbull [facility]05-09-2023 Miscellaneous Notes* Telephone Encounter - Arnel Govea LPN - 12/14/2022 9:47 AM EDT Pharmacy faxed requesting the following refill Refill(s) Requested: Requested Prescriptions Pending Prescriptions Disp Refills atenolol (TENORMIN) 50 mg tablet [Pharmacy Med Name: ATENOLOL 50 MG TABLET] 90 tablet 3 Sig: TAKE 1 TABLET BY MOUTH EVERY DAY fluticasone (FLONASE) 50 mcg/actuation nasal spray [Pharmacy Med Name: FLUTICASONE PROP 50 MCG SPRAY] 48 mL 3 Sig: SPRAY 2 SPRAYS INTO EACH NOSTRIL EVERY DAY metFORMIN (GLUCOPHAGE) 500 mg tablet [Pharmacy Med Name: METFORMIN HCL 500 MG TABLET] 180 tablet 3 Sig: TAKE 1 TABLET BY MOUTH TWICE A DAY WITH MEALS furosemide (LASIX) 20 mg tablet [Pharmacy Med Name: FUROSEMIDE 20 MG TABLET] 90 tablet 1 Sig: TAKE 1 TABLET BY MOUTH EVERY DAY losartan (COZAAR) 25 mg tablet [Pharmacy Med Name: LOSARTAN POTASSIUM 25 MG TAB] 90 tablet 0 Sig: TAKE 1 TABLET BY MOUTH EVERY DAY potassium chloride SR (MICRO-K) 10 mEq CR capsule [Pharmacy Med Name: POTASSIUM CL ER 10 MEQ CAPSULE] 90 capsule 3 Sig: TAKE 1 CAPSULE BY MOUTH EVERY DAY NEEDED WITH LASIX ALLERGIES Allergen Reactions Codeine Hives, Rash Codeine Sulfate Unknown (home) [phone] (cell) Last Office Visit Date: 12/13/2022 Last [facility] Health Visit: Visit date not found Future Appointment: 06/13/2023 The patients preferred pharmacy has been captured for this encounter? yes Request is for script(s) to be escript to pharmacy. Arnel Govea LPN documented in this encounterTrumbull [facility] Hospital05-05-2023 Telephone encounter Note * Telephone Encounter - Charley Parker APRN - CARDIOVASCULAR DISEASE SPECIALIST - 12/10/2022 9:58 AM EDT I called and advised her echo completed December 08, 2022 documents a stable, mildly reduced LV function,EF 45%, she has continued moderate aortic stenosis, which is also stable in comparison to her priorecho December 14, 2021. We will continue her present medications, she agrees to keep her upcoming appointment scheduled with Dr. Joel in March. [facility] [id number] Miscellaneous Notes* Telephone Encounter - GARCIA Pringle CNP - 12/10/2022 9:58 AM EDT I called and advised her echo completed December 08, 2022 documents a stable, mildly reduced LV function,EF 45%, she has continued moderate aortic stenosis, which is also stable in comparison to her priorecho December 14, 2021. We will continue her present medications, she agrees to keep her upcoming appointment scheduled with Dr. Joel in March. * Telephone Encounter - GARCIA Pringle CNP - 12/09/2022 12:14 PM EDT I received results of patient's echo completed yesterday December 08 noting a moderately reduced EF measured 45% as well as moderate hypokinesis in the mid anterolateral segment. She had moderate aortic valve stenosis. Comparison to her prior echo December 2021 it appears overall stable, her aortic stenosis is very mildly worsened. I will discuss her plan of care with Dr. Joel to see if any further recommendations prior to her next scheduled office visit in March. documented in this encounterSBarberton Citizens [id number] Telephone encounter Note* Telephone Encounter - GARCIA Pringle CNP - 12/09/2022 12:14 PM EDT I received results of patient's echo completed yesterday December 08 noting a moderately reduced EF measured 45% as well as moderate hypokinesis in the mid anterolateral segment. She had moderate aortic valve stenosis. Comparison to her prior echo December 2021 it appears overall stable, her aortic stenosis is very mildly worsened. I will discuss her plan of care with Dr. Joel to see if any further recommendations prior to her next scheduled office visit in March. [facility] [id number] Hospital Discharge instructions* Discharge Instr - Activity* GARCIA Ruiz CNP - 11/19/2022 12:51 PM EDT As tolerated * Discharge Instr - Diet* GARCIA Ruiz CNP - 11/19/2022 12:51 PM EDT Carb controlled * Attachments The following attachments cannot be sent through Care Everywhere. * Urinary Tract Infection Discharge Instructions, Adult (Czech) documented in this [place] [id number] History of Present illness Narrative* Erma French - 11/19/2022 9:07 AM EDT Nutrition rescreen completed. Patient assigned a level 1. documented in this [place] [id number] Miscellaneous Notes* Significant Event - GARCIA Weeks CNP - 11/18/2022 1:20 AM EDT I am not directly involved in care of this patient. Accepted with initial orders placed remotely from [facility] with approval from Dr. Henderson. Further care to be managed by ED provider pending day shift CDU provider arrival. This is a non- billable note. documented in this [place] [address]-13-2023 Note* Significant Event - GARCIA Weeks CNP - 11/18/2022 1:20 AM EDT I am not directly involved in care of this patient. Accepted with initial orders placed remotely from [facility] with approval from Dr. Henderson. Further care to be managed by ED provider pending day shift CDU provider arrival. This is a non- billable note. [facility] [id number] Note* Significant Event - GARCIA Weeks CNP - 11/18/2022 1:20 AM EDT I am not directly involved in care of this patient. Accepted with initial orders placed remotely from [facility] with approval from Dr. Henderson. Further care to be managed by ED provider pending day shift CDU provider arrival. This is a non- billable note. [facility] [id number] Emergency department Note* Ajit Gray DO - 11/17/2022 8:19 PM EDT Emergency Department Encounter [facility] ED Patient: Mikel Winston : 1945 Date of Evaluation: 11/17/2022 ED Provider: Ajit Gray DO Chief Complaint Chief Complaint Patient presents with Urinary Frequency Pt states painful urination, family states that pt has been acting more confused since Tuesday. PT was able to answer orientation questions appropriately. UNALAKLEET Mikel Winston is a 77 y.o. female who presents to the emergency department complaining of dysuria. Patient reports has had pain with urination for the last week. She is also had increased urinary frequency. She has been confused per family being repetitive asking the same question several times in a 5-minute window. It seems similar to when she had sepsis due to a leg infection about a year ago. They were concerned about this and brought her to the emergency department. Currently, family including daughter and daughter at bedside state that patient's mental status seems to have improved. Patient denies fevers, chills but does endorse some diarrhea yesterday. Denies any abdominal pain. She lives at home by herself. Additional history obtained from : n/a Barriers to obtaining history from patient: n/a ROS: Review of Systems completed as follows: (Bold = positive, Not bold = negative) GENERAL: fevers, chills, malaise ENT: runny nose, congestion, sore throat, ear pain NEURO: weakness, numbness of tingling, headache CARDIOVASCULAR: chest pain, syncope PULMONARY: shortness of breath, cough, wheezing GASTROINTESTINAL: nausea, vomiting, abdominal pain, diarrhea, constipation, MUSCULOSKELETAL: pain GENITAL/URINARY: dysuria, hematuria, increased urinary frequency, hesitancy, flank pain SKIN: rash, lesions, wound Past History Past Medical History: Diagnosis Date CAD (coronary artery disease) Cirrhosis of liver (CMS/HCC) (HCC) Diabetes mellitus (HCC) Hypertension Osteoporosis Thyroid disease Past Surgical History: Procedure Laterality Date APPENDECTOMY CHOLECYSTECTOMY CORONARY ARTERY BYPASS GRAFT TOTAL KNEE ARTHROPLASTY Right TUBAL LIGATION Social History Socioeconomic History Marital status: Tobacco Use Smoking status: Never Smokeless tobacco: Never Substance and Sexual Activity Alcohol use: No Drug use: No I have reviewed the history above as provided by nursing notes. Medications/Allergies Previous Medications ALPHA TOCOPHEROL (VITAMIN E) 100 UNITS CAPSULE Take 100 Units by mouth daily. ASPIRIN 81 MG EC TABLET Take 81 mg by mouth daily. ATENOLOL (TENORMIN) 50 MG TABLET Take 50 mg by mouth daily. CHOLECALCIFEROL (VITAMIN D) 125 MCG (5000 UT) CAPSULE Take 5,000 Units by mouth daily. FERROUS SULFATE 325 (65 FE) MG TABLET Take 325 mg by mouth daily (with breakfast). FUROSEMIDE (LASIX) 20 MG TABLET Take 20 mg by mouth daily. LEVOTHYROXINE (SYNTHROID, LEVOXYL) 50 MCG TABLET TAKE 1 TABLET BY MOUTH DAILY LOSARTAN (COZAAR) 25 MG TABLET Take 25 mg by mouth daily. METFORMIN (GLUCOPHAGE) 500 MG TABLET Take 500 mg by mouth in the morning and 500 mg in the evening.Take with meals. OMEPRAZOLE (PRILOSEC) [address] CAPSULE Take 40 mg by mouth every morning (before breakfast). Do notcrush or chew. POTASSIUM CHLORIDE CR (KLOR-CON M10) 10 MEQ ER TABLET Take 10 mEq by mouth daily. Do not crush or chew. ROSUVASTATIN (CRESTOR) 20 MG TABLET Take 20 mg by mouth daily. Allergies Allergen Reactions Codeine Hives I have reviewed the history above as provided by nursing notes. Physical Exam ED Triage Vitals [11/17/222021] Temp Heart Rate Resp BP 37.8 C (100.1 F) 90 16 (!) 149/65 SpO2 Temp Source Heart Rate Source Patient Position 98 % Temporal Monitor -- BP Location FiO2 (%) -- -- GENERAL: The patient appears nourished and normally developed. Vital signs as documented. EYES: PERRL. No scleral icterus or orbital trauma noted. HEENT: Mucous membranes moist. Nares patent without copious rhinorrhea. LUNGS: Lungs are clear to auscultation, without any respiratory distress. CARDIAC: Rhythm is regular. No murmur appreciated ABDOMEN: Nontender, soft, with no obvious masses, and no peritoneal signs. No suprapubic tendernessto palpation. EXTREMITIES: Non edematous, with no obvious deformities. SKIN: Good color, with no significant rashes. No pallor. NEURO: No obvious neurological deficits, normal sensation and strength bilaterally. Diagnostics Labs: Results for orders placed or performed during the hospital encounter of 11/17/22 COVID-19, Flu A/B, and RSV Combo Specimen: Nasopharynx; Swab Result Value Ref Range SARS-CoV-2 Not Detected Not Detected Respiratory Syncytial Virus Not Detected Not Detected Influenza A Not Detected Not Detected Influenza B Not Detected Not Detected Complete Urinalysis Result Value Ref Range Color, Urine Yellow Lt. Yellow Clarity, Urine Clear Clear pH, Urine 5.5 5.0 - 8.0 pH Leukocytes, Urine Negative Negative Yomi/uL Nitrite, Urine Negative Negative Protein, Urine 50 (A) Negative mg/dL Glucose, Urine 200 (A) Normal (<70) mg/dL Bilirubin, Urine Negative Negative mg/dL Ketones, Urine Negative Negative mg/dL Urobilinogen, Urine Normal Normal (0-1) mg/dL Blood, Urine 0.06 (A) Negative mg/dL RBC, Urine 0-2 0 - 2 /HPF WBC, Urine 3-5 0 - 5 /HPF Squamous Epithelial, Urine 3-5 3 - 5 /HPF Bacteria, Urine Moderate (A) Negative /HPF Mucus, Urine Few Negative /LPF SPECIFIC GRAVITY OF URINE (NUMERIC) 1.020 1.005 - 1.030 CBC auto differential Result Value Ref Range Auto WBC 4.4 3.6 - 10.7 10*3/uL RBC 3.54 (L) 3.8 - 5.20 10*6/uL Hemoglobin 11.2 (L) 11.7 - 16.0 g/dL Hematocrit 33.2 (L) 35.0 - 47.0 % MCV 93.8 80.0 - 98.0 fL MCH 31.6 26.0 - 34.0 pg MCHC 33.7 32.0 - 36.0 % RDW 13.7 11.5 - 14.5 % Platelets 92 (L) 140 - 440 10*3/uL MPV 9.7 7.4 - 12.4 fL nRBC 0.1 0.0 - 2.0 /100 WBCs Neutrophils Relative 68.4 40.0 - 80.0 % Lymphocytes Relative 15.0 (L) 20.0 - 40.0 % Monocytes Relative 15.2 (H) 2.0 - 10.0 % Eosinophils Relative 0.9 (L) 1.0 - 6.0 % Basophils Relative 0.5 0.0 - 2.0 % Neutrophils Absolute 3.0 1.8 - 7.0 10*3/uL Lymphocytes Absolute 0.7 (L) 1.0 - 4.3 10*3/uL Monocytes Absolute 0.7 0.0 - 0.8 10*3/uL Eosinophils Absolute 0.0 0.0 - 0.5 10*3/uL Basophils Absolute 0.0 0.0 - 0.2 10*3/uL Comprehensive metabolic panel Result Value Ref Range SODIUM 137 135 - 145 mmol/L POTASSIUM 4.1 3.5 - 5.1 mmol/L CHLORIDE 109 (H) 98 - 107 mmol/L CARBON DIOXIDE 22 22 - 30 mmol/L ANION GAP 6 3 - 13 mmol/L UREA NITROGEN 38 (H) 7 - 17 mg/dL CREATININE 1.56 (H) 0.52 - 1.04 mg/dL GLUCOSE 162 (H) 70 - 100 mg/dL CALCIUM 9.4 8.4 - 10.4 mg/dL AST (SGOT) 56 (H) 15 - 46 U/L ALT 29 0 - 34 U/L ALKALINE PHOSPHATASE 135 (H) 38 - 126 U/L ALBUMIN 3.7 3.5 - 5.0 g/dL BILIRUBIN, TOTAL 1.1 0.2 - 1.3 mg/dL TOTAL PROTEIN 7.0 6.3 - 8.2 g/dL eGFR 34.1 (L) >60.0 mL/min/1.73m*2 Lactic acid, sepsis, with reflex if elevated Result Value Ref Range LACTIC ACID 1.2 0.7 - 2.0 mmol/L POCT glucose meter Result Value Ref Range Glucose 203 (H) 70 - 100 mg/dL Radiographs: XR chest 1 view Final Result 1. No acute finding suspected given very low lung volumes. Report Dictated on Electronically Signed By: Clinton Serna Electronically Signed Date/Time: 11/17/2022 11:45 PM EDT EMERGENCY DEPARTMENT COURSE and DIFFERENTIAL DIAGNOSIS/MDM: Vitals: Vitals: 11/17/222021 BP: (!) 149/65 Pulse: 90 Resp: 16 Temp: 37.8 C (100.1 F) TempSrc: Temporal SpO2: 98% The patient presented with a chief complaint of dysuria, confusion. Vital signs reviewed. Neurologic exam normal. Patient has no suprapubic tenderness. Vitals notable for heart rate of 90 with borderline fever of 100.1 F. Differential considered includes cystitis, pyelonephritis, sepsis, other etiologies of altered mental status such as stroke. I have low suspicion for stroke given that patient has a normal neurologic exam at this time and NIH of 0. Septic work-up initiated. Patient has no leukocytosis. Her metabolic panel does show mild acute kidney injury with creatinineof 1.5. Her lactic acid is not elevated. Her urinalysis did show bacteria but no other markers for infection. Given her symptoms I will treat with Rocephin with plans to order urine culture. Blood cultures also ordered. Given acute kidney injury, concern for possible urinary tract infection with history of severe infection in the past I did feel IV antibiotic therapy would be appropriate as well as IV fluid therapy. Discussed with patient she was agreeable to staying in the hospital to treat this initially. Discussed with [facility], Jessica Paulino who agreed to accept patient to the CDU for treatment of BARRY and early cystitis. Diagnoses as of 11/18/22 0149 BARRY (acute kidney injury) (CMS/HCC) (HCC) Cystitis Diagnostic tests considered but not performed: Considered CT scan of the abdomen pelvis however patient does not have any flank or back pain at this time. Have low suspicion for pyelonephritis. Patient has no abdominal tenderness to suggest any other intra-abdominal findings. External records reviewed: Reviewed outpatient cardiology office visit from 09/30/2022 where patient is noted to have history of CAD with mild to moderate aortic valve stenosis. She has a history of remote CABG. Reviewed family visit from 08/16/[address] Cohn. Patient has history of diabetes, hypertension, Barron and chronic leg edema on Lasix 20 mg daily. Diagnostics interpreted by me: Personally reviewed chest x-ray which does not show any acute consolidation to suggest pneumonia Discussions with other clinicians: Discussed with [facility] regarding an observation admission Chronic conditions impacting care: Diabetes, chronic lower extremity edema on diuretic therapy ED Medications managed: Medications sodium chloride 0.9 % infusion (has no administration in time range) acetaminophen (Tylenol) tablet 650 mg (has no administration in time range) Or acetaminophen (Tylenol) suppository 650 mg (has no administration in time range) ondansetron ODT (Zofran-ODT) disintegrating tablet 4 mg (has no administration in time range) Or ondansetron (Zofran) injection 4 mg (has no administration in time range) melatonin tablet 3 mg (has no administration in time range) polyethylene glycol (PEG) 3350 (Miralax) packet 17 g (has no administration in time range) enoxaparin (Lovenox) syringe 40 mg (has no administration in time range) cefTRIAXone (Rocephin) 1 g in sodium chloride 0.9 % 50 mL IVPB Mini-Bag Plus (has no administrationin time range) sodium chloride 0.9 % bolus 500 mL (0 mL IntraVENous Stopped 11/18/22 0132) cefTRIAXone (Rocephin) 1,000 mg in sodium chloride 0.9 % 50 mL IVPB Mini-Bag Plus (0 mg IntraVENousStopped 11/18/22 0108) Patients symptoms are consistent with sepsis, severe sepsis or septic shock (if yes, use .sepsiscoremeasure) - no, does not meet SIRS criteria Final Impression 1. BARRY (acute kidney injury) ([facility]/HCC) ([facility]) 2. Cystitis DISPOSITION observation Comment: Please note this report has been produced using speech recognition software and may contain errors related to that system including errors in grammar, punctuation, and spelling, as well as words and phrases that may be inappropriate. If there are any questions or concerns please feel free to contact the dictating provider for clarification. Ajit Gray DO [employer] Ajit Gray DO 11/18/22 0154 documented in this [facility]04-12-2023 Physician Emergency department Note* Ajit Gray DO - 11/17/2022 8:19 PM EDT Emergency Department Encounter [facility] ED Patient: Mikel Winston : 1945 Date of Evaluation: 11/17/2022 ED Provider: Ajit Gray DO Chief Complaint Chief Complaint Patient presents with Urinary Frequency Pt states painful urination, family states that pt has been acting more confused since Tuesday. PT was able to answer orientation questions appropriately. UNALAKLEET Mikel Winston is a 77 y.o. female who presents to the emergency department complaining of dysuria. Patient reports has had pain with urination for the last week. She is also had increased urinary frequency. She has been confused per family being repetitive asking the same question several times in a 5-minute window. It seems similar to when she had sepsis due to a leg infection about a year ago. They were concerned about this and brought her to the emergency department. Currently, family including daughter and daughter at bedside state that patient's mental status seems to have improved. Patient denies fevers, chills but does endorse some diarrhea yesterday. Denies any abdominal pain. She lives at home by herself. Additional history obtained from : n/a Barriers to obtaining history from patient: n/a ROS: Review of Systems completed as follows: (Bold = positive, Not bold = negative) GENERAL: fevers, chills, malaise ENT: runny nose, congestion, sore throat, ear pain NEURO: weakness, numbness of tingling, headache CARDIOVASCULAR: chest pain, syncope PULMONARY: shortness of breath, cough, wheezing GASTROINTESTINAL: nausea, vomiting, abdominal pain, diarrhea, constipation, MUSCULOSKELETAL: pain GENITAL/URINARY: dysuria, hematuria, increased urinary frequency, hesitancy, flank pain SKIN: rash, lesions, wound Past History Past Medical History: Diagnosis Date CAD (coronary artery disease) Cirrhosis of liver (CMS/HCC) (HCC) Diabetes mellitus (HCC) Hypertension Osteoporosis Thyroid disease Past Surgical History: Procedure Laterality Date APPENDECTOMY CHOLECYSTECTOMY CORONARY ARTERY BYPASS GRAFT TOTAL KNEE ARTHROPLASTY Right TUBAL LIGATION Social History Socioeconomic History Marital status: Tobacco Use Smoking status: Never Smokeless tobacco: Never Substance and Sexual Activity Alcohol use: No Drug use: No I have reviewed the history above as provided by nursing notes. Medications/Allergies Previous Medications ALPHA TOCOPHEROL (VITAMIN E) 100 UNITS CAPSULE Take 100 Units by mouth daily. ASPIRIN 81 MG EC TABLET Take 81 mg by mouth daily. ATENOLOL (TENORMIN) 50 MG TABLET Take 50 mg by mouth daily. CHOLECALCIFEROL (VITAMIN D) 125 MCG (5000 UT) CAPSULE Take 5,000 Units by mouth daily. FERROUS SULFATE 325 (65 FE) MG TABLET Take 325 mg by mouth daily (with breakfast). FUROSEMIDE (LASIX) 20 MG TABLET Take 20 mg by mouth daily. LEVOTHYROXINE (SYNTHROID, LEVOXYL) 50 MCG TABLET TAKE 1 TABLET BY MOUTH DAILY LOSARTAN (COZAAR) 25 MG TABLET Take 25 mg by mouth daily. METFORMIN (GLUCOPHAGE) 500 MG TABLET Take 500 mg by mouth in the morning and 500 mg in the evening.Take with meals. OMEPRAZOLE (PRILOSEC) [address] CAPSULE Take 40 mg by mouth every morning (before breakfast). Do notcrush or chew. POTASSIUM CHLORIDE CR (KLOR-CON M10) 10 MEQ ER TABLET Take 10 mEq by mouth daily. Do not crush or chew. ROSUVASTATIN (CRESTOR) 20 MG TABLET Take 20 mg by mouth daily. Allergies Allergen Reactions Codeine Hives I have reviewed the history above as provided by nursing notes. Physical Exam ED Triage Vitals [11/17/222021] Temp Heart Rate Resp BP 37.8 C (100.1 F) 90 16 (!) 149/65 SpO2 Temp Source Heart Rate Source Patient Position 98 % Temporal Monitor -- BP Location FiO2 (%) -- -- GENERAL: The patient appears nourished and normally developed. Vital signs as documented. EYES: PERRL. No scleral icterus or orbital trauma noted. HEENT: Mucous membranes moist. Nares patent without copious rhinorrhea. LUNGS: Lungs are clear to auscultation, without any respiratory distress. CARDIAC: Rhythm is regular. No murmur appreciated ABDOMEN: Nontender, soft, with no obvious masses, and no peritoneal signs. No suprapubic tendernessto palpation. EXTREMITIES: Non edematous, with no obvious deformities. SKIN: Good color, with no significant rashes. No pallor. NEURO: No obvious neurological deficits, normal sensation and strength bilaterally. Diagnostics Labs: Results for orders placed or performed during the hospital encounter of 11/17/22 COVID-19, Flu A/B, and RSV Combo Specimen: Nasopharynx; Swab Result Value Ref Range SARS-CoV-2 Not Detected Not Detected Respiratory Syncytial Virus Not Detected Not Detected Influenza A Not Detected Not Detected Influenza B Not Detected Not Detected Complete Urinalysis Result Value Ref Range Color, Urine Yellow Lt. Yellow Clarity, Urine Clear Clear pH, Urine 5.5 5.0 - 8.0 pH Leukocytes, Urine Negative Negative Yomi/uL Nitrite, Urine Negative Negative Protein, Urine 50 (A) Negative mg/dL Glucose, Urine 200 (A) Normal (<70) mg/dL Bilirubin, Urine Negative Negative mg/dL Ketones, Urine Negative Negative mg/dL Urobilinogen, Urine Normal Normal (0-1) mg/dL Blood, Urine 0.06 (A) Negative mg/dL RBC, Urine 0-2 0 - 2 /HPF WBC, Urine 3-5 0 - 5 /HPF Squamous Epithelial, Urine 3-5 3 - 5 /HPF Bacteria, Urine Moderate (A) Negative /HPF Mucus, Urine Few Negative /LPF SPECIFIC GRAVITY OF URINE (NUMERIC) 1.020 1.005 - 1.030 CBC auto differential Result Value Ref Range Auto WBC 4.4 3.6 - 10.7 10*3/uL RBC 3.54 (L) 3.8 - 5.20 10*6/uL Hemoglobin 11.2 (L) 11.7 - 16.0 g/dL Hematocrit 33.2 (L) 35.0 - 47.0 % MCV 93.8 80.0 - 98.0 fL MCH 31.6 26.0 - 34.0 pg MCHC 33.7 32.0 - 36.0 % RDW 13.7 11.5 - 14.5 % Platelets 92 (L) 140 - 440 10*3/uL MPV 9.7 7.4 - 12.4 fL nRBC 0.1 0.0 - 2.0 /100 WBCs Neutrophils Relative 68.4 40.0 - 80.0 % Lymphocytes Relative 15.0 (L) 20.0 - 40.0 % Monocytes Relative 15.2 (H) 2.0 - 10.0 % Eosinophils Relative 0.9 (L) 1.0 - 6.0 % Basophils Relative 0.5 0.0 - 2.0 % Neutrophils Absolute 3.0 1.8 - 7.0 10*3/uL Lymphocytes Absolute 0.7 (L) 1.0 - 4.3 10*3/uL Monocytes Absolute 0.7 0.0 - 0.8 10*3/uL Eosinophils Absolute 0.0 0.0 - 0.5 10*3/uL Basophils Absolute 0.0 0.0 - 0.2 10*3/uL Comprehensive metabolic panel Result Value Ref Range SODIUM 137 135 - 145 mmol/L POTASSIUM 4.1 3.5 - 5.1 mmol/L CHLORIDE 109 (H) 98 - 107 mmol/L CARBON DIOXIDE 22 22 - 30 mmol/L ANION GAP 6 3 - 13 mmol/L UREA NITROGEN 38 (H) 7 - 17 mg/dL CREATININE 1.56 (H) 0.52 - 1.04 mg/dL GLUCOSE 162 (H) 70 - 100 mg/dL CALCIUM 9.4 8.4 - 10.4 mg/dL AST (SGOT) 56 (H) 15 - 46 U/L ALT 29 0 - 34 U/L ALKALINE PHOSPHATASE 135 (H) 38 - 126 U/L ALBUMIN 3.7 3.5 - 5.0 g/dL BILIRUBIN, TOTAL 1.1 0.2 - 1.3 mg/dL TOTAL PROTEIN 7.0 6.3 - 8.2 g/dL eGFR 34.1 (L) >60.0 mL/min/1.73m*2 Lactic acid, sepsis, with reflex if elevated Result Value Ref Range LACTIC ACID 1.2 0.7 - 2.0 mmol/L POCT glucose meter Result Value Ref Range Glucose 203 (H) 70 - 100 mg/dL Radiographs: XR chest 1 view Final Result 1. No acute finding suspected given very low lung volumes. Report Dictated on Electronically Signed By: Clinton Serna Electronically Signed Date/Time: 11/17/2022 11:45 PM EDT EMERGENCY DEPARTMENT COURSE and DIFFERENTIAL DIAGNOSIS/MDM: Vitals: Vitals: 11/17/222021 BP: (!) 149/65 Pulse: 90 Resp: 16 Temp: 37.8 C (100.1 F) TempSrc: Temporal SpO2: 98% The patient presented with a chief complaint of dysuria, confusion. Vital signs reviewed. Neurologic exam normal. Patient has no suprapubic tenderness. Vitals notable for heart rate of 90 with borderline fever of 100.1 F. Differential considered includes cystitis, pyelonephritis, sepsis, other etiologies of altered mental status such as stroke. I have low suspicion for stroke given that patient has a normal neurologic exam at this time and NIH of 0. Septic work-up initiated. Patient has no leukocytosis. Her metabolic panel does show mild acute kidney injury with creatinineof 1.5. Her lactic acid is not elevated. Her urinalysis did show bacteria but no other markers for infection. Given her symptoms I will treat with Rocephin with plans to order urine culture. Blood cultures also ordered. Given acute kidney injury, concern for possible urinary tract infection with history of severe infection in the past I did feel IV antibiotic therapy would be appropriate as well as IV fluid therapy. Discussed with patient she was agreeable to staying in the hospital to treat this initially. Discussed with [facility], Jessica Paulino who agreed to accept patient to the CDU for treatment of BARRY and early cystitis. Diagnoses as of 11/18/22 0149 BARRY (acute kidney injury) ([facility]/HCC) ([facility]) Cystitis Diagnostic tests considered but not performed: Considered CT scan of the abdomen pelvis however patient does not have any flank or back pain at this time. Have low suspicion for pyelonephritis. Patient has no abdominal tenderness to suggest any other intra-abdominal findings. External records reviewed: Reviewed outpatient cardiology office visit from 09/30/2022 where patient is noted to have history of CAD with mild to moderate aortic valve stenosis. She has a history of remote CABG. Reviewed family visit from 08/16/[address] Cohn. Patient has history of diabetes, hypertension, Barron and chronic leg edema on Lasix 20 mg daily. Diagnostics interpreted by me: Personally reviewed chest x-ray which does not show any acute consolidation to suggest pneumonia Discussions with other clinicians: Discussed with [facility] regarding an observation admission Chronic conditions impacting care: Diabetes, chronic lower extremity edema on diuretic therapy ED Medications managed: Medications sodium chloride 0.9 % infusion (has no administration in time range) acetaminophen (Tylenol) tablet 650 mg (has no administration in time range) Or acetaminophen (Tylenol) suppository 650 mg (has no administration in time range) ondansetron ODT (Zofran-ODT) disintegrating tablet 4 mg (has no administration in time range) Or ondansetron (Zofran) injection 4 mg (has no administration in time range) melatonin tablet 3 mg (has no administration in time range) polyethylene glycol (PEG) 3350 (Miralax) packet 17 g (has no administration in time range) enoxaparin (Lovenox) syringe 40 mg (has no administration in time range) cefTRIAXone (Rocephin) 1 g in sodium chloride 0.9 % 50 mL IVPB Mini-Bag Plus (has no administrationin time range) sodium chloride 0.9 % bolus 500 mL (0 mL IntraVENous Stopped 11/18/22 0132) cefTRIAXone (Rocephin) 1,000 mg in sodium chloride 0.9 % 50 mL IVPB Mini-Bag Plus (0 mg IntraVENousStopped 11/18/22 0108) Patients symptoms are consistent with sepsis, severe sepsis or septic shock (if yes, use .sepsiscoremeasure) - no, does not meet SIRS criteria Final Impression 1. BARRY (acute kidney injury) (CMS/HCC) ([facility]) 2. Cystitis DISPOSITION observation Comment: Please note this report has been produced using speech recognition software and may contain errors related to that system including errors in grammar, punctuation, and spelling, as well as words and phrases that may be inappropriate. If there are any questions or concerns please feel free to contact the dictating provider for clarification. Ajit Gray DO [employer] Ajit Gray DO 11/18/22 0154 [id number] Miscellaneous Notes* Telephone Encounter - Marilin Rosales LPN - 11/10/2022 11:06 AM EDT Called patient back and she said her glucometer has not worked in 6 weeks. Is needing a new one. States doesn't want to keep picking up strips for a meter that does not work. Advised would pend a new glucometer test strips and lancets to Dr Cohn and the pharmacy can dispense whichever is covered. She states needs to say twice a day to [facility] in [place] Order pended * Telephone Encounter - Tigist Elliott - 11/10/2022 10:58 AM EDT Pt called in and said her glucose monitor stopped working. She would like someone to call her back (home # first and then mobile) to discuss what to do. She doesn't want to picker operator her test strips yet because she is not sure if she will get the same testing unit. documented in this [facility]Tr[facility]03-[facility]23 Miscellaneous Notes* Telephone Encounter - Arnel Govea LPN - 10/18/2022 11:33 AM EDT Pharmacy faxed requesting the following refill Refill(s) Requested: Requested Prescriptions Pending Prescriptions Disp Refills losartan (COZAAR) 25 mg tablet [Pharmacy Med Name: LOSARTAN POTASSIUM 25 MG TAB] 90 tablet 0 Sig: TAKE 1 TABLET BY MOUTH EVERY DAY ALLERGIES Allergen Reactions Codeine Hives, Rash Codeine Sulfate Unknown (home) Last Office Visit Date: 08/16/2022 Last Distance Health Visit: Visit date not found Future Appointment: 11/15/2022 The patients preferred pharmacy has been captured for this encounter? yes Request is for script(s) to be escript to pharmacy. Arnel Govea LPN documented in this encounterTr[facility]ull [facility]02-23-2023 History of Present illness Narrative* GARCIA Pringle CNP - 09/30/2022 11:00 AM EST Images from the original note were not included. [facility] Office Note DATE of SERVICE: 09/30/22 TIME of SERVICE: 12:00 PM Reason for Visit: Chief Complaint Patient presents with 6 Month Follow-up History ofPresent Illness: Mikel Winston is a 77 y.o. female who is known to Dr. Joel. She has a history of coronary artery disease and mild to moderate aortic valve stenosis. History of remote coronary artery bypass surgery 12 years ago in 2009, most recent heart catheterization December 2017 with percutaneous intervention to the distal left main, ostial to mid LAD, and proximal and mid left circumflex vessels. She continues on low-dose aspirin. Remains chest pain-free. At her last office visit 6 months ago she was initiated on Crestor 20 mg daily which she is tolerating very well and has had great improvement in her cholesterol. Today in office she states she is feeling well, she has had no interim hospitalizations or illnesses since her last office visit 6 months ago, remains well compensated. Denies chest discomfort or shortness of breath. I made no medication changes, I have ordered a repeat transthoracic echo for further evaluation of her known mild to moderate aortic stenosis. Past Medical History: Past Medical History: Diagnosis Date CAD (coronary artery disease) Cirrhosis of liver (CMS/HCC) (HCC) Diabetes mellitus (HCC) Hypertension Osteoporosis Thyroid disease Past Surgical History Past Surgical History: Procedure Laterality Date APPENDECTOMY CHOLECYSTECTOMY CORONARY ARTERY BYPASS GRAFT TOTAL KNEE ARTHROPLASTY Right TUBAL LIGATION Family History Family History Problem Relation Name Age of Onset Stroke Father's Brother Diabetes Father Mental illness Mother Coronary artery disease Brother Social History Social History Tobacco Use Smoking status: Never Smokeless tobacco: Never Substance Use Topics Alcohol use: No Drug use: No Allergies: Allergies Allergen Reactions Codeine Hives Medications: Current Outpatient Medications: alpha tocopherol (Vitamin E) 100 units capsule, Take 100 Units by mouth daily., Disp: , Rfl: aspirin 81 MG EC tablet, Take 81 mg by mouth daily., Disp: , Rfl: atenolol (Tenormin) 50 MG tablet, Take 50 mg by mouth daily., Disp: , Rfl: Cholecalciferol (Vitamin D) 125 MCG (5000 UT) capsule, Take 5,000 Units by mouth daily., Disp: , Rfl: ferrous sulfate 325 (65 Fe) MG tablet, Take 325 mg by mouth daily (with breakfast)., Disp: , Rfl: furosemide (Lasix) 20 MG tablet, Take 20 mg by mouth daily., Disp: , Rfl: levothyroxine (Synthroid, Levoxyl) 50 MCG tablet, TAKE 1 TABLET BY MOUTH DAILY, Disp: 30 tablet, Rfl: 3 losartan (Cozaar) 25 MG tablet, Take 25 mg by mouth daily., Disp: , Rfl: metFORMIN (Glucophage) 500 MG tablet, Take 500 mg by mouth in the morning and 500 mg in the evening. Take with meals., Disp: , Rfl: omeprazole (PriLOSEC) [address] capsule, Take 40 mg by mouth every morning (before breakfast). Do not crush or chew., Disp: , Rfl: potassium chloride CR (Klor-Con M10) 10 MEQ ER tablet, Take 10 mEq by mouth daily. Do not crush or chew., Disp: , Rfl: rosuvastatin (Crestor) 20 MG tablet, Take 20 mg by mouth daily., Disp: , Rfl: Review of Systems: Review of Systems Constitutional: Negative for activity change, chills, diaphoresis, fatigue and fever. Pt states she has been feeling well HENT: Negative for nosebleeds and trouble swallowing. Eyes: Negative for discharge and visual disturbance. Respiratory: Negative for apnea, cough, chest tightness, shortness of breath and wheezing. Denies SOB, no PND/orthopnea Cardiovascular: Negative for chest pain, palpitations and leg swelling. Denies chest discomfort or palpitations Gastrointestinal: Negative for abdominal distention, abdominal pain, blood in stool, diarrhea, nausea and vomiting. Endocrine: Negative for cold intolerance and heat intolerance. Genitourinary: Negative for hematuria. Musculoskeletal: Negative for gait problem and myalgias. Skin: Negative for color change and rash. Neurological: Negative for dizziness, seizures, syncope, facial asymmetry, speech difficulty, weakness, light-headedness, numbness and headaches. Hematological: Does not bruise/bleed easily. Psychiatric/Behavioral: Negative for dysphoric mood. Physical Examination: Vitals: BP 138/70 (BP Location: Left arm, Patient Position: Sitting, BP Cuff Size: Adult) Pulse 74 Resp 16 Wt 192 lb (87.1 kg) SpO2 97% BMI 31.95 kg/m Body mass index is 31.95 kg/m . Physical Exam Constitutional: Appearance: Normal appearance. HENT: Head: Normocephalic. Nose: Nose normal. Eyes: General: Right eye: No discharge. Left eye: No discharge. Cardiovascular: Rate and Rhythm: Normal rate and regular rhythm. Heart sounds: Murmur (grade 3/6 systolic murmer present) heard. Comments: Regular, rate controlled Pulmonary: Effort: Pulmonary effort is normal. Breath sounds: Normal breath sounds. No wheezing or rales. Comments: Clear t/o Abdominal: General: There is no distension. Palpations: Abdomen is soft. Musculoskeletal: Right lower leg: No edema. Left lower leg: No edema. Comments: Mild generalized non pitting edema BLE, knees down, chronic Skin: General: Skin is warm and dry. Findings: No rash. Neurological: Mental Status: She is alert and oriented to person, place, and time. Psychiatric: Mood and Affect: Mood normal. Laboratory Tests: Lab Results Component Value Date GLUCOSE 124 (H) 12/22/2021 CALCIUM 9.4 12/22/2021 NA 136 12/22/2021 K 4.1 12/22/2021 CO2 28 12/22/2021 CL 103 12/22/2021 BUN 20 12/22/2021 CREATININE 0.98 12/22/2021 @LASTCMP@ No results found for: CHLPL, CHOL No results found for: TRIG No results found for: HDL No results found for: LDLCALC No results found for: VLDL No results found for: CHOLHDLRATIO Other Testing: Cardiac Tests: Last Echo (date: 12/14/2021): SUMMARY: 1. Left ventricle: The cavity size is normal. Wall thickness is mildly increased. Systolic function is mildly decreased by visual assessment. The estimated ejection fraction is 45-50%. 2. Right ventricle: The cavity size is moderately dilated. Systolic function is mildly decreased. 3. Ventricular septum: Abnormal septal motion due to left bundle branch block. 4. Left atrium: The atrium is mildly dilated. 5. Aortic valve: There is mild to moderate stenosis. The mean systolic gradient is 16 mm Hg. The peak systolic gradient is 26 mm Hg. The valve area by the velocity-time integral method is 1.3 cm^2. Assessment and Plan: 1. Coronary artery disease-remote coronary artery bypass surgery with subsequent intervention as noted above December 2017-remains chest pain-free -Continues on low-dose aspirin 2. Mild to moderate aortic stenosis-remains compensated -I have ordered a repeat transthoracic echo for further evaluation and to assess for progression 3. [id number] 4. Dyslipidemia-high intensity statin therapy continues, rosuvastatin 20 mg daily for cardiac risk reduction 5. Follow-up-6 months and as needed. Charley Parker APRN/JATIN documented in this [facility]02-13-2023 Miscellaneous Notes* Telephone Encounter - Marilin Rosales LPN - 09/20/2022 9:15 AM EST E-Prescribing Status: Receipt confirmed by pharmacy (08/19/2022 11:02 AM EST) 90 tablets was given 08/19/22. [facility] Miscellaneous Notes* Telephone Encounter - Marilin Rosales LPN - 09/16/2022 2:10 PM EST 90 tablets was sent 08/19/22. E-Prescribing Status: Receipt confirmed by pharmacy (08/19/2022 11:02 AM EST) documented in this [facility]Tr[facility]01-16-2023 Miscellaneous Notes* Telephone Encounter - Marilin Rosales LPN - 08/23/2022 10:21 AM EST Pharmacy faxed requesting the following refill Refill(s) Requested: Requested Prescriptions Pending Prescriptions Disp Refills ferrous sulfate 325 mg (65 mg iron) tablet [Pharmacy Med Name: FERROUS SULFATE 325 MG TABLET] 90 tablet 1 Sig: TAKE 1 TABLET BY MOUTH EVERY DAY ALLERGIES Allergen Reactions Codeine Hives, Rash Codeine Sulfate Unknown (home) Last Office Visit Date: 08/16/2022 Last Distance Health Visit: Visit date not found Future Appointment: 11/15/2022 The patients preferred pharmacy has been captured for this encounter? yes Request is for script(s) to be escript to pharmacy. Marilin Rosales LPN documented in this [facility]Tr[facility]01-12-2023 Miscellaneous Notes* Telephone Encounter - Marilin Rosales LPN - 08/19/2022 9:37 AM EST Medication pended * Telephone Encounter - Nanette Nelson - 08/19/2022 9:30 AM EST Pt requesting refill of Losartan 25mg 1 daily. Pt is almost out. Please send to [facility] [place] Nanettefarrah Nelson documented in this encounterTr[facility]01-09-2023 Miscellaneous Notes* Telephone Encounter - Arnel Govea LPN - 08/16/2022 4:11 PM EST Pharmacy faxed requesting the following refill Refill(s) Requested: Requested Prescriptions Pending Prescriptions Disp Refills omeprazole (PRILOSEC) 40 mg capsule [Pharmacy Med Name: OMEPRAZOLE DR 40 MG CAPSULE] 90 capsule 1 Sig: TAKE 1 CAPSULE BY MOUTH EVERY DAY ALLERGIES Allergen Reactions Codeine Hives, Rash Codeine Sulfate Unknown (home) Last Office Visit Date: 08/16/2022 Last [facility] Visit: Visit date not found Future Appointment: 11/15/2022 The patients preferred pharmacy has been captured for this encounter? yes Request is for script(s) to be escript to pharmacy. Arnel Govea LPN documented in this encounterTr[facility]01-09-2023 History of Present illness Narrative* Komal Cohn DO - 08/16/2022 11:29 AM EST Images from the original note were not included. [facility] [place] Cohn DO [address] [place] [address] Date of Evaluation: 08/16/2022 Patient Name: Mikel Winston : 1945 Chief Complaint: Patient presents with: Diabetes Hypertension Cough Nasal Congestion wants to discuss how much Furosemide to take Nursing Intake: There are no exam notes on file for this visit. Subjective Ms. Winston is a 77 year old female who presents with the following complaint(s): The history is provided by the patient. No manager language was used. Diabetes She presents for her follow-up diabetic visit. She has type 2 diabetes mellitus. Pertinent negatives for hypoglycemia include no dizziness, headaches or nervousness/anxiousness. Pertinent negatives for diabetes include no chest pain, no fatigue and no weakness. Hypertension This is a chronic problem. The problem is controlled. Pertinent negatives include no chest pain, headaches, palpitations or shortness of breath. Cough This is a new problem. The current episode started more than 1 week ago. The problem has been gradually improving. Pertinent negatives include no chest pain, no headaches, no shortness of breath and no eye redness. Nasal Congestion This is a new problem. The current episode started 1 to 4 weeks ago. Associated symptoms include congestion and coughing. Pertinent negatives include no headaches or shortness of breath. Edema This is a recurrent problem. The problem occurs intermittently. Associated symptoms include congestion and coughing. Pertinent negatives include no chest pain, fatigue, headaches, numbness or weakness. Review of Systems Constitutional: Negative for fatigue and unexpected weight change. HENT: Positive for congestion. Negative for nosebleeds. Eyes: Negative for redness and visual disturbance. Respiratory: Positive for cough. Negative for apnea and shortness of breath. Cardiovascular: Negative for chest pain, palpitations and leg swelling. Genitourinary: Negative for hematuria. Neurological: Negative for dizziness, weakness, light-headedness, numbness and headaches. Hematological: Does not bruise/bleed easily. Psychiatric/Behavioral: The patient is not nervous/anxious. PAST MEDICAL HISTORY Diagnosis Date Anemia Diabetes (HCC) Diverticulosis Dysphagia FHx: colon cancer Hemorrhoids Hepatic flexure syndrome History of colon polyps Hypertension BARRON (nonalcoholic steatohepatitis) PAST SURGICAL HISTORY Procedure Laterality Date COLONOSCOPY 05/09/2012 TUBAL LIGATION HX FAMILY HISTORY Problem Relation Age of Onset Colon Cancer Mother other (Liver disease) Mother Social History Tobacco Use Smoking status: Former Smokeless tobacco: Never Vaping Use Vaping Use: Never used Substance Use Topics Alcohol use: No Drug use: No Current Outpatient Medications Medication Sig Dispense Refill losartan (COZAAR) 25 mg tablet Take 25 mg by mouth once daily. levothyroxine (SYNTHROID) 50 mcg tablet TAKE 1 TABLET BY MOUTH EVERY DAY 90 tablet 3 rosuvastatin (CRESTOR) 20 mg tablet Take 20 mg by mouth once daily. ferrous sulfate 325 mg (65 mg iron) tablet TAKE 1 TABLET BY MOUTH EVERY DAY 90 tablet 1 omeprazole (PRILOSEC) 40 mg capsule TAKE 1 CAPSULE BY MOUTH EVERY DAY 90 capsule 1 potassium chloride SR (MICRO-K) 10 mEq CR capsule TAKE 1 CAPSULE BY MOUTH EVERY DAY NEEDED WITH LASIX 90 capsule 3 atenolol (TENORMIN) 50 mg tablet Take 1 tablet by mouth once daily. 90 tablet 3 metFORMIN (GLUCOPHAGE) 500 mg tablet Take 1 tablet by mouth twice daily with meals. 180 tablet 3 ACCU-CHEK KENROY PLUS TEST STRP test strip 1 STRIP TWICE DAILY. USE TO TEST BLOOD SUGAR TWICE A DAY 100 Strip 7 nystatin (MYCOSTATIN) powder Apply 1 application to affected area three times daily. APPLY TO AFFECTED AREA 60 g 3 fluticasone (FLONASE) 50 mcg/actuation nasal spray SPRAY 2 SPRAYS INTO EACH NOSTRIL EVERY DAY 48 mL3 MULTIVITAMIN ORAL Take by mouth. cholecalciferol, vitamin D3, (VITAMIN D3 ORAL) Take by mouth. aspirin 81 mg chewable tablet Take 81 mg by mouth. Vitamin E, dl, acetate, (VITAMIN E) 400 unit capsule Take 800 Units by mouth. furosemide (LASIX) 20 mg tablet Take 1 tablet by mouth once daily. 30 tablet 5 benzonatate (TESSALON PERLE) 100 mg capsule TAKE 1 CAPSULE BY MOUTH THREE TIMES A DAY NEEDED FORCOUGH (Patient not taking: Reported on 08/16/2022) No current facility-administered medications for this visit. I have confirmed and edited as necessary the past medical, family and social histories, HPI, and ROS obtained by others. Objective BP 130/62 Pulse 67 Temp 98.2 Ht 5' 4 (1.63m) Wt 190 lb (86.2kg) SpO2 98% BMI 32.60 kg/(m^2). Physical Exam Vitals and nursing note reviewed. Constitutional: General: She is not in acute distress. Appearance: Normal appearance. She is well-developed. She is not ill-appearing. HENT: Head: Normocephalic. Right Ear: Tympanic membrane, ear canal and external ear normal. There is no impacted cerumen. Left Ear: Tympanic membrane, ear canal and external ear normal. There is no impacted cerumen. Nose: Nose normal. Mouth/Throat: Mouth: Mucous membranes are moist. Pharynx: Oropharynx is clear. Uvula midline. No oropharyngeal exudate or posterior oropharyngeal erythema. Eyes: General: Lids are normal. Vision grossly intact. Gaze aligned appropriately. No scleral icterus. Right eye: No discharge. Left eye: No discharge. Extraocular Movements: Extraocular movements intact. Conjunctiva/sclera: Conjunctivae normal. Pupils: Pupils are equal, round, and reactive to light. Neck: Thyroid: No thyroid mass, thyromegaly or thyroid tenderness. Vascular: No carotid bruit. Trachea: Trachea and phonation normal. Cardiovascular: Rate and Rhythm: Normal rate and regular rhythm. Pulses: Normal pulses. Heart sounds: Normal heart sounds. Pulmonary: Effort: Pulmonary effort is normal. Breath sounds: Normal breath sounds. Abdominal: General: Abdomen is flat. Bowel sounds are normal. Palpations: Abdomen is soft. Musculoskeletal: General: Normal range of motion. Right shoulder: Normal. Left shoulder: Normal. Cervical back: Normal, full passive range of motion without pain and neck supple. No tenderness. Nospinous process tenderness. Thoracic back: Normal. Lumbar back: Normal. Right knee: Normal. Left knee: Normal. Right lower leg: No edema. Left lower leg: No edema. Lymphadenopathy: Cervical: No cervical adenopathy. Skin: General: Skin is warm and dry. Neurological: General: No focal deficit present. Mental Status: She is alert and oriented to person, place, and time. Mental status is at baseline. Sensory: Sensation is intact. Motor: Motor function is intact. Psychiatric: Attention and Perception: Attention and perception normal. Mood and Affect: Mood normal. Speech: Speech normal. Behavior: Behavior normal. Thought Content: Thought content normal. Judgment: Judgment normal. Data Reviewed: Most recent labs ASSESSMENT/PLAN: 1. Primary hypertension - ICD9: 401.9, ICD10: I10 (primary diagnosis) - good control - Continue current medication(s) - Recommended regular aerobic exercise. - Recommend home blood pressure monitoring, to bring results in on next visit - Goal of BP <130/80 2. Hyperlipidemia, mixed - ICD9: 272.2, ICD10: E78.2 - to be determined upon return of lab results - Check fasting lipid panel and ALT. - CBC + DIFF - COMP METABOLIC PANEL - LIPID PANEL BASIC - URINALYSIS, WITH MICROSCOPIC 3. Bilateral leg edema - ICD9: 782.3, ICD10: R60.0 - Continue Lasix 20 mg daily. - FUROSEMIDE 20 MG TABLET 4. Hypothyroidism, acquired - ICD9: 244.9, ICD10: E03.9 - TSH BLD 5. Acute non-recurrent maxillary sinusitis - ICD9: 461.0, ICD10: J01.00 - 2 weeks of symptoms. Symptoms improved no need for antibiotic treatment at this time. Komal Cohn DO Return in about 3 months (around 11/14/2022). Attestation: Scribe Statement: Vicenta Ellsworth am scribing for, and in the presence of, Physician Statement: IKomal DO, personally performed the services described in the documentation, as scribed by Melanie Ellsworth in my presence, and it is both accurate and complete August 16, 2022 11:40 AM.Komal Cohn DO August 16, 2022 11:35 AM. documented in this [facility]09-26-2022 History of Present illness Narrative* Komal Cohn DO - 05/03/2022 11:18 AM EDT Images from the original note were not included. [facility] [place] Komal Cohn DO [address] [place] [address] Date of Evaluation: 05/03/2022 Patient Name: Mikel Winston : 1945 Chief Complaint: Patient presents with: Diabetes Swelling: Follow up. Both legs. Right worse than left. discuss lasix dose and BMP Nursing Intake: There are no exam notes on file for this visit. Subjective Ms. Winston is a 76 year old female who presents with the following complaint(s): The history is provided by the patient. No manager language was used. Diabetes She presents for her follow-up diabetic visit. She has type 2 diabetes mellitus. Pertinent negatives for hypoglycemia include no dizziness, headaches or nervousness/anxiousness. Pertinent negatives for diabetes include no chest pain, no fatigue and no weakness. Hypertension This is a chronic problem. The current episode started more than 1 year ago. Pertinent negatives include no chest pain, headaches, palpitations or shortness of breath. Edema This is a chronic problem. The problem occurs daily. The problem has been gradually improving. Pertinent negatives include no chest pain, coughing, fatigue, headaches, numbness or weakness. Review of Systems Constitutional: Negative for fatigue and unexpected weight change. HENT: Negative for nosebleeds. Eyes: Negative for redness and visual disturbance. Respiratory: Negative for apnea, cough and shortness of breath. Cardiovascular: Negative for chest pain, palpitations and leg swelling. Genitourinary: Negative for hematuria. Neurological: Negative for dizziness, weakness, light-headedness, numbness and headaches. Hematological: Does not bruise/bleed easily. Psychiatric/Behavioral: The patient is not nervous/anxious. PAST MEDICAL HISTORY Diagnosis Date Anemia Diabetes (HCC) Diverticulosis Dysphagia FHx: colon cancer Hemorrhoids Hepatic flexure syndrome History of colon polyps Hypertension BARRON (nonalcoholic steatohepatitis) PAST SURGICAL HISTORY Procedure Laterality Date COLONOSCOPY 05/09/2012 TUBAL LIGATION HX FAMILY HISTORY Problem Relation Age of Onset Colon Cancer Mother other (Liver disease) Mother Social History Tobacco Use Smoking status: Former Smokeless tobacco: Never Vaping Use Vaping Use: Never used Substance Use Topics Alcohol use: No Drug use: No Current Outpatient Medications Medication Sig Dispense Refill rosuvastatin (CRESTOR) 20 mg tablet Take 20 mg by mouth once daily. ferrous sulfate 325 mg (65 mg iron) tablet TAKE 1 TABLET BY MOUTH EVERY DAY 90 tablet 1 omeprazole (PRILOSEC) 40 mg capsule TAKE 1 CAPSULE BY MOUTH EVERY DAY 90 capsule 1 potassium chloride SR (MICRO-K) 10 mEq CR capsule TAKE 1 CAPSULE BY MOUTH EVERY DAY NEEDED WITH LASIX 90 capsule 3 benzonatate (TESSALON PERLE) 100 mg capsule TAKE 1 CAPSULE BY MOUTH THREE TIMES A DAY NEEDED FORCOUGH atenolol (TENORMIN) 50 mg tablet Take 1 tablet by mouth once daily. 90 tablet 3 metFORMIN (GLUCOPHAGE) 500 mg tablet Take 1 tablet by mouth twice daily with meals. 180 tablet 3 ACCU-CHEK KENROY PLUS TEST STRP test strip 1 STRIP TWICE DAILY. USE TO TEST BLOOD SUGAR TWICE A DAY 100 Strip 7 nystatin (MYCOSTATIN) powder Apply 1 application to affected area three times daily. APPLY TO AFFECTED AREA 60 g 3 fluticasone (FLONASE) 50 mcg/actuation nasal spray SPRAY 2 SPRAYS INTO EACH NOSTRIL EVERY DAY 48 mL3 levothyroxine (SYNTHROID) 50 mcg tablet TAKE 1 TABLET BY MOUTH EVERY DAY 90 tablet 3 MULTIVITAMIN ORAL Take by mouth. cholecalciferol, vitamin D3, (VITAMIN D3 ORAL) Take by mouth. aspirin 81 mg chewable tablet Take 81 mg by mouth. Vitamin E, dl, acetate, (VITAMIN E) 400 unit capsule Take 800 Units by mouth. No current facility-administered medications for this visit. I have confirmed and edited as necessary the past medical, family and social histories, HPI, and ROS obtained by others. Objective BP 118/58 Pulse 63 Temp 97.8 Ht 5' 4 (1.63m) Wt 188 lb (85.3kg) SpO2 96% BMI 32.25 kg/(m^2). Physical Exam Vitals and nursing note reviewed. Constitutional: General: She is not in acute distress. Appearance: Normal appearance. She is well-developed. She is not ill-appearing. HENT: Head: Normocephalic. Right Ear: Tympanic membrane, ear canal and external ear normal. There is no impacted cerumen. Left Ear: Tympanic membrane, ear canal and external ear normal. There is no impacted cerumen. Nose: Nose normal. Mouth/Throat: Mouth: Mucous membranes are moist. Pharynx: Oropharynx is clear. Uvula midline. No oropharyngeal exudate or posterior oropharyngeal erythema. Eyes: General: Lids are normal. Vision grossly intact. Gaze aligned appropriately. No scleral icterus. Right eye: No discharge. Left eye: No discharge. Extraocular Movements: Extraocular movements intact. Conjunctiva/sclera: Conjunctivae normal. Pupils: Pupils are equal, round, and reactive to light. Neck: Thyroid: No thyroid mass, thyromegaly or thyroid tenderness. Vascular: No carotid bruit. Trachea: Trachea and phonation normal. Cardiovascular: Rate and Rhythm: Normal rate and regular rhythm. Pulses: Normal pulses. Heart sounds: Normal heart sounds. Pulmonary: Effort: Pulmonary effort is normal. Breath sounds: Normal breath sounds. Abdominal: General: Abdomen is flat. Bowel sounds are normal. Palpations: Abdomen is soft. Musculoskeletal: General: Normal range of motion. Right shoulder: Normal. Left shoulder: Normal. Cervical back: Normal, full passive range of motion without pain and neck supple. No tenderness. Nospinous process tenderness. Thoracic back: Normal. Lumbar back: Normal. Right knee: Normal. Left knee: Normal. Right lower leg: Edema present. Left lower leg: Edema present. Lymphadenopathy: Cervical: No cervical adenopathy. Skin: General: Skin is warm and dry. Neurological: General: No focal deficit present. Mental Status: She is alert and oriented to person, place, and time. Mental status is at baseline. Sensory: Sensation is intact. Motor: Motor function is intact. Psychiatric: Attention and Perception: Attention and perception normal. Mood and Affect: Mood normal. Speech: Speech normal. Behavior: Behavior normal. Thought Content: Thought content normal. Judgment: Judgment normal. Data Reviewed: Most recent labs ASSESSMENT/PLAN: 1. Primary hypertension - ICD9: 401.9, ICD10: I10 (primary diagnosis) - good control - Continue current medication(s) - Recommended regular aerobic exercise. - Recommend home blood pressure monitoring, to bring results in on next visit - Goal of BP <130/80 2. Hyperlipidemia, mixed - ICD9: 272.2, ICD10: E78.2 3. Bilateral leg edema - ICD9: 782.3, ICD10: R60.0 - Continue lasix 20 mg - Recheck BMP - BASIC METABOLIC PNL 4. Type 2 diabetes mellitus without complication, without long-term current use of insulin (HCC) - ICD9: 250.00, ICD10: E11.9 - HGB A1C Return in about 3 months (around 08/02/2022). Komal Cohn DO Attestation: Scribe Statement: Vicenta Ellsworth am scribing for, and in the presence of, Komal Cohn DO May 03, 2022 11:27 AM. Physician Statement: IKomal DO, personally performed the services described in the documentation, as scribed by Melanie Ellsworth in my presence, and it is both accurate and complete May 03, 2022 11:33 AM. documented in this encounterTr[facility]09-26-2022 Miscellaneous Notes* Telephone Encounter - Marilin Rosales LPN - 05/03/2022 11:18 AM EDT Patient has an appt today * Telephone Encounter - Komal Cohn DO - 04/30/2022 11:00 AM EDT * Telephone Encounter - Marilin Rosales LPN - 04/29/2022 3:46 PM EDT Images from the original note were not included. Jackie from [facility] called in and left a voicemail wanting to know if office received patients BMP results from 04/26/22. Her chart results note from 04/27/22 telephone encounter. Per 04/28/22 telephone encounter le advised. 1) wanting results of BMP from 04/26/22 2) verifying furosemide dosing. States patient has a script from the pharmacy for 40mg 3 po daily. She is wanting clarification on dosing. 3)she is weighing 184.4lb down 4 lbs from last week. Edema is doing better. Also they will be discharging her next week due to insurance change. Called Jackie back and she said she saw the papers from the pharmacy and told patient to not taking the lasix 40mg 3 po every day (120mg daily) until she verify's with the office. Advised Jackie on 04/27/22 Dr Cohn said: oKmal Cohn DO 2:58 PM Note Decrease lasix to 20 mg day decrease losartan to 25 mg day bmp 2 weeks written Please verify and update medication list. She will discuss with patient the lasix and losartan. documented in this encounterTr[facility]ull [facility]09-21-2022 Miscellaneous Notes* Telephone Encounter - Le Graves - 04/28/2022 11:24 AM EDT PT RETURNED CALL AND WAS GIVEN NEW INSTRUCTIONS W MEDICATIONS PT IS SCHEDULED 05/03/22 ALSO. SO ANY FURTHER QUESTIONS SHE WILL ASK AT THIS APPT SHE STATED. documented in this encounterTrumbull [facility] Hospital09-20-2022 Miscellaneous Notes* Telephone Encounter - Komal Cohn DO - 04/27/2022 2:55 PM EDT Decrease lasix to 20 mg day decrease losartan to 25 mg day bmp 2 weeks written documented in this encounterTrumbull [facility] Hospital09-12-2022 Miscellaneous Notes* Telephone Encounter - Grace Linda LPN - 04/19/2022 10:27 AM EDT Spoke to Mikel and let her know about increased lasix and lab ordered in one week. Mikel provided another phone number for Darlene. Spoke to Darlene and gave her updated order per Dr. Cohn. She will draw Mikel's labs in one week. * Telephone Encounter - Komal Cohn DO - 04/19/2022 10:12 AM EDT 40 mg day bmp week * Telephone Encounter - Grace Linda LPN - 04/14/2022 3:22 PM EDT Rec'd call from Noemi at [facility]. She seen patient and states that she has 2+ pitting edema, with a 4.6 # wt gain. Pt has 20mg Lasix prn. Is it ok for the patient to take 20mg daily until the swelling goes down. Please advise documented in this encounterTrumbull [facility] Hospital09-06-2022 Miscellaneous Notes* Telephone Encounter - Grace Linda LPN - 04/13/2022 11:30 AM EDT Pharmacy faxed requesting the following refill Refill(s) Requested: Requested Prescriptions Pending Prescriptions Disp Refills ferrous sulfate 325 mg (65 mg iron) tablet [Pharmacy Med Name: FERROUS SULFATE 325 MG TABLET] 90 tablet 1 Sig: TAKE 1 TABLET BY MOUTH EVERY DAY ALLERGIES Allergen Reactions Codeine Hives, Rash Codeine Sulfate Unknown (home) Last Office Visit Date: 01/18/2022 Last Distance Health Visit: Visit date not found Future Appointment: 05/03/2022 The patients preferred pharmacy has been captured for this encounter? yes Request is for script(s) to be escript to pharmacy. Grace Linda LPN documented in this encounterTrumbull [facility] Hospital07-18-2022 Miscellaneous Notes* Telephone Encounter - Alia De La Paz LPN - 02/22/2022 9:50 AM EDT Pharmacy faxed requesting the following refill Refill(s) Requested: Pending Prescriptions Disp Refills OMEPRAZOLE 40 MG CAPSULE,DELAYED RELEASE 90 capsule 1 Sig: TAKE 1 CAPSULE BY MOUTH EVERY DAY ANNABELLE: Yes POTASSIUM CHLORIDE ER 10 MEQ CAPSULE,EXTENDED RELEASE 90 capsule 3 Sig: TAKE 1 CAPSULE BY MOUTH EVERY DAY NEEDED WITH LASIX ANNABELLE: Yes LOSARTAN 50 MG TABLET 90 tablet 3 Sig: TAKE 1 TABLET BY MOUTH EVERY DAY ANNABELLE: Yes ALLERGIES Allergen Reactions Codeine Hives, Rash Codeine Sulfate Unknown (home) Last Office Visit Date: 01/18/2022 Last Distance Health Visit: Visit date not found Future Appointment: 05/03/2022 The patients preferred pharmacy has been captured for this encounter? yes Request is for script(s) to be escript to pharmacy. Alia De La Paz LPN documented in this encounterTrumbull [facility] Hospital07-15-2022 Miscellaneous Notes* Telephone Encounter - Nanette Nelson - 02/19/2022 3:25 PM EDT Pt has been recertified for home care. She will be seen once weekly every other week for 8 weeks, to help her understand diabetes and CHF Nanette Nelson documented in this encounterTrumbull [facility] Hospital06-14-2022 Miscellaneous Notes* Telephone Encounter - Le Canales - 01/19/2022 3:00 PM EDT LAT[facility]YA [facility] [employer] [facility] [employer] PHONED W HIS RECOMMENDATION W HER INCOME SHE SHOULD QUALIFY FOR WAIVERED MEDICAID PLAN. SHE HAS AGREED TO SPEAK W SOMEONE W [facility] ON [address]. THIS WILL HELP PROVIDE MORE SERVICES FOR HER W HELP IN THE HOME. (STATED PATIENT IS $300-$400 OVER IN HER INCOME FOR MEDICAID. BUT SHE IS BORDERLINE FOR POVERTY LEVEL. LATONYA CAN BE REACHED AT [phone] documented in this encounterTrumbull [facility] Hospital05-31-2022 Miscellaneous Notes* Telephone Encounter - Komal Cohn DO - 01/05/2022 4:30 PM EDT Anemia studies pending Radha resulted I need to see to discuss * Telephone Encounter - Nanette Nelson - 01/05/2022 2:18 PM EDT Pt calling for results. I let pt know that the lab results are in Dr Cohn's office. Nanette Nelson * Telephone Encounter - Nanette Nelson - 01/05/2022 2:18 PM EDT ----- Message from Dari Varela sent at 01/05/2022 12:11 PM EDT ----- Regarding: MEDICINE / KOMAL COHN / LAB RESULT CONFIRMATION Subject Line Format: Medicine / [Provider Name] / [Issue] Patient has been identified by name and Date of (Y/N): Y Patient: Mikel Winston Date of : 1945 Provider for this encounter: Komal Cohn DO Reason for the call/escalation: WANTS TO VERIFY IF WE RECEIVED RECENT LABS FROM [facility] Was Patient Referred to [facility]/Seek Emergency Treatment (Y/N): NA Did Patient Agree (Y/N): NA Was An Attempt Made To Transfer The Patient To The Office (Y/N): N Were You Able To Reach Someone At The Office (Y/N): NA If Yes - Patient Was Transferred To (Caregivers Name): NA If No - Which [facility] Leadership Supervisor [employer] Did You Speak With Regarding This Patient: NA Was an appointment scheduled (Y/N): Y Reason patient was requesting visit (RFV/signs and symptoms/diagnosis) : REQUESTING TO VERIFY IF THE OFFICE RECEIVED HER RECENT LAB WORK FROM [facility] Person calling if other than patient: PATIENT Return call to if other than patient: PATIENT Best contact number: [phone] Thank you, Dari Varela January 05, 2022 12:11 PM documented in this encounterTrumbull Memorial Hospital05-27-2022 Miscellaneous Notes* Telephone Encounter - Komal Cohn DO - 01/01/2022 4:33 PM EDT Anemia. Any bleeding ckd Needs anemia labs. Ill need to see bt labs ordered documented in this encounterTrumbull Memorial Hospital05-19-2022 Miscellaneous Notes* Telephone Encounter - Marilin Rosales LPN - 12/24/2021 1:01 PM EDT Pharmacy faxed requesting the following refill Refill(s) Requested: Pending Prescriptions Disp Refills FUROSEMIDE 20 MG TABLET 90 tablet 3 Sig: TAKE 1 TABLET BY MOUTH ONCE DAILY NEEDED. ANNABELLE: Yes BRILINTA 90 MG TABLET 180 tablet 3 Sig: TAKE 1 TABLET BY MOUTH TWICE A DAY ANNABELLE: Yes ALLERGIES Allergen Reactions Codeine Hives, Rash Codeine Sulfate Unknown (home) Last Office Visit Date: 11/30/2021 Last [facility] Visit: Visit date not found Future Appointment: 03/01/2022 The patients preferred pharmacy has been captured for this encounter? yes Request is for script(s) to be escript to pharmacy. Marilin Rosales LPN documented in this encounterTrumbull Memorial Hospital05-19-2022 Miscellaneous Notes* Telephone Encounter - Fawad Perez DO - 12/24/2021 11:17 AM EDT I reviewed her hospital discharge summary. She had sepsis with Enterococcus. Infectious disease recommended the Linezolid. There is not a clear substitute. See if we can process the prior authorization. I know it is expensive but the patient may want to pay [id number] to get the best antibiotic. Dr. Perez * Telephone Encounter - Grace Linda LPN - 12/23/2021 1:37 PM EDT Pt was admitted to hospital for altered mental status and UTI. She was discharged 12/24/2021 with anATB: LINEZOLID 600mg po BID x 6days. Patient states that the medication needs to have a Prior Auth and was instructed by the pharmacy tocontact the office for Dr. Cohn to call in another atb for her that would not require an prior auth. I let patient know that Dr. Cohn is off for the next week and would send a message to the physician covering for him. I contacted [facility] and they stated that the medication does require aPA - it is not approved be Medicare. I asked that the PA request be sent to the office. Is there another medication that can be given to the patient? Please advise. documented in this encounterTrumbull Memorial Hospital05-17-2022 NoteDischarge Summary Mikel Winston : 1945 ADMIT DATE: 12/13/2021 DISCHARGE DATE: 12/22/2021 PRIMARY CARE PHYSICIAN: KOMAL COHN DO VISIT STATUS: Admission CODE STATUS: Prior DISCHARGE DIAGNOSES: Active Problems: UTI (urinary tract infection) Resolved Problems: * No resolved hospital problems. * Sepsis Enterococcal bacteremia UTI/RLE cellulitis - ID following - TTE: negative for vegetation - Repeat Blood cultures: NGTD - Continiue Vancomycin - Per ID:?Will plan for 14 day course total from 12/15,??ON discharge?can switch to?linezolid 600 mg Q12h till 12/28?po for the?remaining course for e. Faecalis bacteremia. ? AMS: improved ? HTN/CAD - stable - Continiue BB, Brilinta ? Hyponatremia HOSPITAL COURSE: PT ADMITTED FOR sepsis sec to uti, id consulted, developed enterococcal bacteremia, treated with vanc and transitioned to zyvox. Stable and discharged. Patient is alert, awake, oriented x 3 No pallor, Icterus No JVD Heart S1 S2 No murmurs Lungs clear to auscultation Abdomen soft non distended no organomegaly No pedal edema, no cyanosis No focal neurological deficits CONSULTANTS: ID DISCHARGE MEDICATIONS: Medication List CHANGE how you take these medications atenolol 50 MG tablet Commonly known as: TENORMIN Take 1 tablet by mouth daily What changed: how much to take * levothyroxine 50 MCG tablet Commonly known as: SYNTHROID What changed: Another medication with the same name was added. Make sure you understand how and when to take each. * levothyroxine 50 MCG tablet Commonly known as: SYNTHROID Take 1 tablet by mouth Daily What changed: You were already taking a medication with the same name, and this prescription was added. Make sure you understand how and when to take each. metFORMIN 500 MG tablet Commonly known as: GLUCOPHAGE What changed: Another medication with the same name was removed. Continue taking this medication, and follow the directions you see here. * This list has 2 medication(s) that are the same as other medications prescribed for you. Read the directions carefully, and ask your doctor or other care provider to review them with you. CONTINUE taking these medications aspirin 81 MG chewable tablet citalopram 20 mg tablet Commonly known as: CELEXA ferrous sulfate 325 (65 Fe) MG tablet Commonly known as: IRON 325 fluticasone 50 MCG/ACT nasal spray Commonly known as: FLONASE furosemide 20 MG tablet Commonly known as: LASIX losartan 50 mg tablet Commonly known as: COZAAR nitroGLYCERIN 0.4 MG SL tablet Commonly known as: NITROSTAT up to max of 3 total doses. If no relief after 1 dose, call 911. nystatin 365705 UNIT/GM powder Commonly known as: MYCOSTATIN omeprazole 20 MG delayed release capsule Commonly known as: PRILOSEC potassium chloride 10 MEQ extended release capsule Commonly known as: MICRO-K ticagrelor 90 MG Tabs tablet Commonly known as: BRILINTA Take 1 tablet by mouth 2 times daily Vitamin D3 125 MCG (5000 UT) Tabs vitamin E 400 UNIT capsule STOP taking these medications minocycline 50 MG capsule Commonly known as: MINOCIN;DYNACIN ASK your doctor about these medications benzonatate 100 MG capsule Commonly known as: TESSALON Take 1 capsule by mouth 3 times daily as needed for Cough Ask about: Should I take this medication? linezolid 600 MG tablet Commonly known as: Zyvox Take 1 tablet by mouth 2 times daily for 6 days Ask about: Should I take this medication? Where to Get Your Medications These medications were sent to [facility]/pharmacy #[id number] - [address] [phone] - [phone] [place] [id number] ? atenolol 50 MG tablet ? benzonatate 100 MG capsule ? levothyroxine 50 MCG tablet ? linezolid 600 MG tablet DIET: No diet orders on file ACTIVITY: No restriction. up with assist SIGNIFICANT DIAGNOSTIC STUDIES: COMPLEXITY OF FOLLOW UP: [] Moderate Complexity: follow up within 7-14 calendar days (34026) [] Severe Complexity: follow up within 7 calendar days (74516) FOLLOW UP TESTING, PENDING RESULTS OR REFERRALS AT TRANSITIONAL CARE VISIT: [] Yes [] No PENDING STUDIES: @LABRRPENDINGTESTS@ RECOMMENDED NEXT STEPS: DISPOSITION: Home FACILITY/HOME CARE AGENCY NAME: Follow up with KOMAL COHN DO in 1 week INSTRUCTIONS TO MA/SW: Please call patient on day after discharge (must document patient contacted within 2 business days of discharge). FOLLOW UP QUESTIONS FOR MA/SW: 1. Did you get medications filled and taking them as instructed from discharge? 2. Are you following your discharge instructions from your hospital stay? 3. Please confirm patient is scheduled for a follow up appointment within the above time frame. DISCHARGE TIME: > 30 minutes SIGNED: Nguyen Mclaughlin MD 12/30/2021, 2:31 [facility]05-17-2022 Hospital Discharge instructions * Discharge Instr - Activity* Clinton Mustafa RN - 12/22/2021 6:40 PM EDT As tolerated * Discharge Instr - Diet* Clinton Mustafa RN - 12/22/2021 6:40 PM EDT Good nutrition is important when healing from an illness, injury, or surgery. Follow any nutrition recommendations given to you during your hospital stay. If you were given an oral nutrition supplement while in the hospital, continue to take this supplement at home. You can take it with meals, in-between meals, and/or before bedtime. These supplements can be purchased at most local grocery stores, pharmacies, and chain homedeco2u-stores. If you have any questions about your diet or nutrition, call the hospital and ask for the dietitian. Heart Healthy * Discharge Instr - Lab* Diya Vaughan LPN - 12/20/2021 1:18 PM EDT Your physician has ordered skilled home care services for you. Your home care will be provided by: [facility] [phone] Scheduling [phone] * Additional Instructions* Linda Tejeda MD - 12/13/2021 Please return to the emergency department if your symptoms change or worsen. * Attachments The following attachments cannot be sent through Care Everywhere. * UTI (Urinary Tract Infection): Female (Czech) documented in this encounterSUMMA Work Phone: [phone]) 224-749005-17-2022 History of Present illness Narrative* Sue Flood RCP - 12/22/2021 2:[address] [facility] Respiratory Care Department Progress Note SpO2 at rest on RA = 99% SpO2 with ambulation on RA = 97% Distance Walked = 100' Recovery SpO2 with ambulation = 99% Qualify for home O2 Y/N = No Patient mobile at home Y/N = Yes * Grace Galvez PTA - 12/22/2021 1:48 PM EDT Physical Therapy Facility/Department: [facility] Physical Therapy Treatment Note Name: Mikel Winston : 1945 Date of Service: 12/22/2021 Discharge Recommendations: Home with assist PRN,Home with Home health PT PT Equipment Recommendations Equipment Needed: No Patient Diagnosis(es): The primary encounter diagnosis was Altered mental status, unspecified altered mental status type. Diagnoses of Urinary tract infection without hematuria, site unspecified and Acute cystitis without hematuria were also pertinent to this visit. Past Medical History: has a past medical history of CAD (coronary artery disease), Cirrhosis of liver (HCC), Diabetes mellitus (HCC), Hypertension, Osteoporosis, and Thyroid disease. Past Surgical History: has a past surgical history that includes Coronary artery bypass graft; Cholecystectomy; Total knee arthroplasty (Right); Tubal ligation; and Appendectomy. Assessment Assessment: Pt presents with increased functional mobility. Bed Mobility Rod. Transfers and Ambulation SUP using FWW. Stair Training completed this date with SBA using R HR. Pt demo'd good FWW management and safety awareness this session. Pt is expected to benefit from continued skilled therapy toincrease overall independence. Recommend Home with assist PRN and HHC PT at discharge. Activity Tolerance Activity Tolerance: Patient tolerated treatment well Plan Plan Plan: (3 visits) Current Treatment Recommendations: Strengthening,Balance training,Functional mobility training,Transfer training,Stair training,Gait training,Endurance training,Safety education & training,Home exercise program,Pain management,Equipment evaluation, education, & procurement,Patient/Caregiver education & training,Therapeutic activities,Positioning Plan Comment: goals and treatment plan established in collaboration with pt Safety Devices Type of Devices: All fall risk precautions in place,Call light within reach,Nurse notified,Patient at risk for falls (Left on toilet. RN notified.) Restraints Restraints Initially in Place: No Restrictions Restrictions/Precautions Restrictions/Precautions: Fall Risk,General Precautions Required Braces or Orthoses?: No Position Activity Restriction Other position/activity restrictions: 2L O2 and IV in tow Subjective General Chart Reviewed: Yes Response To Previous Treatment: Patient with no complaints from previous session. Family / Caregiver Present: No Follows Commands: Within Functional Limits General Comment Comments: Per RN pt okay for therapy. On RA upon arrival Subjective Subjective: Pt pleasant and agreeable to PT. Denies pain at this time. Social/Functional History Social/Functional History Lives With: Alone Type of Home: Apartment Home Layout: One level Home Access: Stairs to enter with rails Entrance Stairs - Number of Steps: 1 Bathroom Shower/Tub: Walk-in shower Bathroom Toilet: Standard Bathroom Accessibility: Walker accessible Home Equipment: Walker, rolling (glucometer) Receives Help From: Family ADL Assistance: Independent Homemaking Assistance: Independent Homemaking Responsibilities: Yes Ambulation Assistance: Independent Transfer Assistance: Independent Active Sizing Sprayer: No Patient's Sizing Sprayer Info: children Occupation: Retired Vision/Hearing Cognition Orientation Overall Orientation Status: Within Functional Limits Cognition Overall Cognitive Status: WFL Objective Pulse: 70 Heart Rate Source: Monitor BP: (!) 147/63 MAP (Calculated): 91 Resp: 18 SpO2: 96 % Patient Education provided for Role of Therapy, Transfer Training, Equipment, Plan of Care, and Fall Prevention this date. Pt verbalizes and demonstrates understanding and could benefit from continued education in these areas. Bed mobility Supine to Sit: Modified independent Scooting: Modified independent Bed Mobility Comments: HOB elevated with no use of bed rails. On toilet post session. RN notified. Denies dizziness with positional changes. Transfers Sit to Stand: Supervision Stand to sit: Supervision Comment: from EOB to FWW x 1. Demo'd proper hand placement during ascend and descend. Good eccentric control and use of bathroom hand rail. Denies dizziness and increase in pain. Ambulation Device: Rolling Walker Assistance: Supervision Quality of Gait: Forward flexion and short reciprocal gait pattern. Decreased step height and length. Gait Deviations: Slow Leba;Decreased step length;Decreased step height Distance: 250 ft Comments: Good FWW management this date. Min cues to remain maintain LEILANI within FWW when turning. Pt steady with no LOB in FWW. More Ambulation?: No Stairs/Curb Stairs?: Yes Stairs # Steps : 2 Stairs Height: 6 Rails: Right ascending Device: No Device Assistance: Stand by assistance Exercise Treatment: Declined secondary to need for bathroom use AM-PAC Score AM-PAC Inpatient Mobility Raw Score : 23 (12/22/21 1348) AM-PAC Inpatient T-Scale Score : 56.93 (12/22/21 1348) Mobility Inpatient CMS 0-100% Score: 11.2 (12/22/21 1348) Mobility Inpatient CMS G-Code Modifier : CI (12/22/21 134) Goals Short Term Goals Time Frame for Short term goals: 6 visits Short term goal 1: Pt will complete bed mobility Mod I to promote mobility (MET) Short term goal 2: Pt will complete functional transfer to FWW with Mod I to promote safety (PROGRESSING) Short term goal 3: Pt will ambulate 100 ft with FWW and Mod I to promote mobility (PROGRESSING) Short term goal 4: Pt will ascend/descend 1 stair SUP to safely enter/exit home (PROGRESSING) Short term goal 5: Pt will complete 1-2 sets 5-10 reps LE exercise to promote strength (NOT ADDRESSED) Patient Goals Patient goals : Pt wants to go home Education Patient Education Education Given To: Patient Education Provided: Role of Therapy;Transfer Training;Equipment;Plan of Care;Energy Conservation;Fall Prevention Strategies Education Method: Demonstration;Verbal Barriers to Learning: None Education Outcome: Verbalized understanding;Demonstrated understanding Therapy Time Individual Concurrent Group Co-treatment Time In 1323 Time Out 1335 Minutes 12 Timed Code Treatment Minutes: 12 Minutes (GT) POINT OF SALE ASSOCIATE wore surgical mask and gloves throughout entire session with patient. Patient wore mask at all times when out of room. Grace Galvez, ZACH * DAVIS Sauer - 12/22/2021 12:41 PM EDT Occupational Therapy Facility/Department: [facility] Occupational Therapy Daily Treatment Note Name: Mikel Winston : 1945 Date of Service: 12/22/2021 Discharge Recommendations: Home with assist PRN,Home with Home health OT Patient Diagnosis(es): The primary encounter diagnosis was Altered mental status, unspecified altered mental status type. Diagnoses of Urinary tract infection without hematuria, site unspecified and Acute cystitis without hematuria were also pertinent to this visit. Past Medical History: has a past medical history of CAD (coronary artery disease), Cirrhosis of liver (HCC), Diabetes mellitus (HCC), Hypertension, Osteoporosis, and Thyroid disease. Past Surgical History: has a past surgical history that includes Coronary artery bypass graft; Cholecystectomy; Total knee arthroplasty (Right); Tubal ligation; and Appendectomy. Assessment Assessment: Pt progressing with all goals. Is SBA for transfers, UB bathing and toleting hygiene. Light min assist to start brief over her feet while sitting on the toilet. Pt tolerated therapy well and is up in the chair for lunch. Pt would benefit from continued therapy. OT recommending d/c home with HHOT and assist as needed. Plan Plan Times per Week: 3 visits Current Treatment Recommendations: Strengthening,Balance training,Functional mobility training,Endurance training,Safety education & training,Patient/Caregiver education & training,Equipment evaluation, education, & procurement,Positioning,Self-Care / ADL,Home management training Plan Comment: cont ot tx per poc Restrictions Restrictions/Precautions Restrictions/Precautions: Fall Risk,General Precautions Required Braces or Orthoses?: No Position Activity Restriction Other position/activity restrictions: 2L O2 and IV in tow Subjective General Chart Reviewed: Yes Patient assessed for rehabilitation services?: Yes Family / Caregiver Present: No Subjective Subjective: Pleasant and cooperative. General Comment Comments: Per RN pt ok for OT tx. Social/Functional History Social/Functional History Lives With: Alone Type of Home: Apartment Home Layout: One level Home Access: Stairs to enter with rails Entrance Stairs - Number of Steps: 1 Bathroom Shower/Tub: Walk-in shower Bathroom Toilet: Standard Bathroom Accessibility: Walker accessible Home Equipment: Walker, rolling (glucometer) Receives Help From: Family ADL Assistance: Independent Homemaking Assistance: Independent Homemaking Responsibilities: Yes Ambulation Assistance: Independent Transfer Assistance: Independent Active Sizing Sprayer: No Patient's Sizing Sprayer Info: children Occupation: Retired Safety Devices Type of Devices: All fall risk precautions in place;Call light within reach;Nurse notified;Patient at risk for falls;Gait belt Balance Sitting: Intact Standing: Without support Gait Overall Level of Assistance: Stand-by assistance (Used FWW to walk to the bathroom and back with SBA.) Toilet Transfers Toilet - Technique: Ambulating Equipment Used: Grab bars Toilet Transfer: Stand by assistance Toilet Transfers Comments: cues for hand placement ADL Grooming: Setup Grooming Skilled Clinical Factors: In sitting UE Bathing: Stand by assistance LE Dressing: Minimal assistance LE Dressing Skilled Clinical Factors: Needed assist to start brief over her feet when sitting on the toilet. Pt reports she can do it at home. Toileting: Stand by assistance Toileting Skilled Clinical Factors: Assist to start brief over her feet. Pt able to pull brief up/down and perform toileting hygiene without assist with no LOB. Additional Comments: Pt completed ADL's in sitting (chair and then on the toilet). Initially, pt using a pure wik cath and ADAM removed when pt got up to the chair. Pt was agreeable to use the toiletand don brief and pad. Pure wik not used at end of session. Lunch came and pt wanting to eat her foot while it's hot. Pt will sit up in the chair to eat. Tolerated ADL's fairly well. Activity Tolerance Activity Tolerance: Patient tolerated treatment well Bed mobility Supine to Sit: Modified independent Bed Mobility Comments: Up in chair at end of session. Transfers Sit to stand: Stand by assistance Stand to sit: Stand by assistance Transfer Comments: cues for hand placement to fww Cognition Overall Cognitive Status: WFL AM-PAC Score AM-[facility] Inpatient Daily Activity Raw Score: 22 (12/22/211515) AM-[facility] Inpatient ADL T-Scale Score : 47.1 (12/22/211515) ADL Inpatient CMS 0-100% Score: 25.8 (12/22/211515) ADL Inpatient CMS G-Code Modifier : CJ (12/22/211515) Goals Short Term Goals Time Frame for Short term goals: 5 visits Short Term Goal 1: Pt will complete full body ADLs with MOD I-progressing Short Term Goal 2: Pt will complete bathroom level toileting with MOD I and LRD-progressing Short Term Goal 3: Pt will complete functional transfers / mobiltiy with LRD and MOD I-progressing Short Term Goal 4: Pt will tolerate > 4 minutes of funcitonal standing with MOD I and LRD to increase endurance for ALDs and functional mobility.-progressing Patient Goals Patient goals : none stated at this time Therapy Time Individual Concurrent Group Co-treatment Time In 1204 Time Out 1240 Minutes 36 Timed Code Treatment Minutes: 30 Minutes (adl and ther act) DAVIS Sauer * Ariel Solitario MD - 12/21/2021 5:09 PM EDT Images from the original note were not included. Hospitalist Progress Note 12/21/2021 5:09 PM [phone]: Please page me or perfect serve me for patient care issues. [phone]: Please page [facility] night Hospitalist for any issues. Subjective: Admit Date: 12/13/2021 PCP: KOMAL COHN DO Room#: [id number] Admitting synopsis:Admitted 12/13/21 with AMS and found to have bacteremia/UTI/cellulitis Interval History: Denies chest pain, sob, abdominal pain, nausea, vomiting, diarrhea, constipation,fevers, or chills. Tolerating diet. ADULT DIET; Regular; 4 carb choices (60 gm/meal); No Added Salt (3-4 gm) Patient Vitals for the past 96 hrs (Last 3 readings): Weight 12/21/21 0628 195 lb 11.2 oz (88.8 kg) 12/20/21 0658 204 lb 4.8 oz (92.7 kg) 12/18/21 0506 204 lb (92.5 kg) 24HR INTAKE/OUTPUT: Intake/Output Summary (Last 24 hours) at 12/21/2021 1709 Last data filed at 12/21/2021 1254 Gross per 24 hour Intake 340 ml Output 2100 ml Net -1760 ml Past Medical History: Diagnosis Date CAD (coronary artery disease) Cirrhosis of liver (HCC) Diabetes mellitus (HCC) Hypertension Osteoporosis Thyroid disease Medications: sodium chloride dextrose vancomycin 1,750 mg IntraVENous Q24H ipratropium-albuterol 1 ampule Inhalation BID [Held by provider] furosemide 40 mg Oral Daily miconazole Topical BID fluticasone 2 spray Each Nostril Daily aspirin 81 mg Oral Daily atenolol 50 mg Oral Daily vitamin D 5,000 Units Oral Dinner citalopram 20 mg Oral Daily ferrous sulfate 325 mg Oral Daily with breakfast levothyroxine 50 mcg Oral Daily losartan 50 mg Oral Daily [Held by provider] metFORMIN 1,000 mg Oral Dinner metFORMIN 500 mg Oral Daily with breakfast pantoprazole 40 mg Oral QAM AC [Held by provider] minocycline 50 mg Oral Daily ticagrelor 90 mg Oral BID vitamin E 800 Units Oral Daily sodium chloride flush 5-40 mL IntraVENous 2 times per day enoxaparin 40 mg SubCUTAneous Daily potassium chloride 10 mEq Oral Daily with breakfast insulin lispro 0-6 Units SubCUTAneous TID WC LABS: CBC: No results for input(s): WBC, RBC, HGB, HCT, MCV, RDW, PLT in the last 72 hours. BMP: Recent Labs 12/19/21 0512/20/2152612/21/21521 NA 133* 136 137 K 3.7 3.8 3.9 CL 101 101 103 CO2 31* 33* 31* BUN 26* 26* 22* CREATININE 1.13 1.02 1.01 GLUCOSE 117* 125* 122* CALCIUM 9.1 9.3 9.4 ANIONGAP 2* 3 3 LIVER PROFILE: Recent Labs 12/19/21 0512/20/2152612/21/21521 AST 49* 85* 40 ALT 12 13 14 BILITOT 1.0 1.2 0.9 ALKPHOS 104 88 102 LABALBU 2.9* 3.2* 3.0* PROT 5.8* 6.0* 5.8* PT/INR: No results for input(s): PROTIME, INR in the last 72 hours. CARDIAC ENZYMES: No results for input(s): TROPONINI in the last 72 hours. Procalcitonin: Lab Results Component Value Date PROCAL 0.55 12/15/2021 Objective: Vitals: BP 134/62 Pulse 68 Temp 99 F (37.2 C) (Temporal) Resp 18 Ht 5' 5 (1.651 m) Wt 195 lb 11.2 oz (88.8 kg) SpO2 96% BMI 32.57 kg/m Pulse Ox: SpO2 Av.5 % Min: 96 % Max: 97 % Supplemental O2: O2 Flow Rate (L/min): 2 L/min General appearance: in no apparent distress HEENT: Head: Normocephalic, no lesions, without obvious abnormality. Heart: regular rate and rhythm, S1, S2 normal, no murmur, click, rub or gallop and systolic murmur:throughout precordium 2/6, blowing at 2nd right intercostal space Lungs: clear to auscultation bilaterally Abdomen: soft, non-tender; bowel sounds normal; no masses, no organomegaly and Obese Extremities: edema BLE Musculoskeletal: AQUILES Neurologic: no cranial nerve deficit and speech normal Psychiatric: appropriate, oriented to person, place, situation and year Skin: Skin color, texture, turgor normal. No rashes or lesions. Assessment/Plan Sepsis Enterococcal bacteremia UTI/RLE cellulitis - ID following - TTE: negative for vegetation - Repeat Blood cultures: NGTD - Continiue Vancomycin - Per ID: Will plan for 14 day course total from 12/15, ON discharge can switch to linezolid 600 mg Q12h till 12/28 po for the remaining course for e. Faecalis bacteremia. AMS: improved HTN/CAD - stable - Continiue BB, Brilinta Hyponatremia: resolved - Likely 2/2 poor oral intake, poor protein intake - BMP in am - encourage oral intake DMT2 - SSI - Metformin HFrEF - Euvolemic - diuretic on hold for now Hypoalbuminemia/hypoproteinemia - Appreciate Nutrition/Dietitian input -am labs, replace lytes prn -increase activity -DVT prophylaxis: [x] Lovenox [] Heparin [] SCDs [] Encourage ambulation [] Already on Anticoagulation [] OAC/NOAC held GI Prophylaxis [x] PPI/H2 [] tolerating diet Advance Directive: Full Code Discharge planning: Home with Home health PT ARIEL SOLITARIO MD Division of Hospitalist Medicine Inpatient Medical Services * Nurys Butts - 12/21/2021 1:35 PM EDT Comprehensive Nutrition Assessment Type and Reason for Visit: Consult Nutrition Recommendations/Plan: 1. Continue with 60 gram CHO per meal and no added salt (3-4 gram na) diet. Patient is tolerating diet modification. 2. PO intakes are adequate. Pt still refusing ONS. Wants to encourage PO food intake. 3. Addressed pt's questions regarding her diet. Pt has RD contact information in case of any questions or concerns. 4. Monitor intakes, weights, and labs. RD will follow. Malnutrition Assessment: Malnutrition Status: At risk for malnutrition (Comment) (Due to fluid in extremities) (12/21/21 1330) Context: Acute Illness Findings of the 6 clinical characteristics of malnutrition: Energy Intake: No significant decrease in energy intake Weight Loss: (Suspect inaccurate weight taken 12/21. Anticipate some fluid losses from diuretic.) Body Fat Loss: No significant body fat loss Muscle Mass Loss: No significant muscle mass loss Fluid Accumulation: Moderate to Severe Extremities (HF dx, cellulitis of leg.) [employer] Strength: Not Performed Nutrition Assessment: Pt states appetite is good. Pt ate 51-75% of her lunch. Pt denies any difficulty chewing/swallowing. Pt does have constipation and states last BM was several days ago. Nutrition Related Findings: +2 pitting edema RLE, LLE. BUN 22, GFR 53.9, Albumin 3.0, Total pro 5.9, Glu 122, POC Glu 156, HgbA1c (09/16/21) 6.5, NT Pro-BNP 7432 Wound Type: (Red, dry excoriated abd fold. Red coccyx. Ecchynosis LAURA, BLE.) Current Nutrition Intake & Therapies: Average Meal Intake: 76-100% Average Supplements Intake: None Ordered ADULT DIET; Regular; 4 carb choices (60 gm/meal); No Added Salt (3-4 gm) Anthropometric Measures: Height: 5' 5 (165.1 cm) [place] Body Weight (IBW): 125 lbs (57 kg) Admission Body Weight: 203 lb (92.1 kg) Current Body Weight: 195 lb (88.5 kg), 156 % IBW. Weight Source: Bed Scale Current BMI (kg/m2): 32.4 Usual Body Weight: 200 lb (90.7 kg) % Weight Change (Calculated): -2.5 Weight Adjustment For: No Adjustment BMI Categories: Obese Class 1 (BMI 30.0-34.9) Estimated Daily Nutrient Needs: Energy Requirements Based On: Kcal/kg Weight Used for Energy Requirements: [place] Energy (kcal/day): 1425 - 1700 kcal (25-30) Weight Used for Protein Requirements: [place] Protein (g/day): 57-86 g (1-1.2) Method Used for Fluid Requirements: ml/Kg Fluid (ml/day): 4754-8219 or per MD Nutrition Diagnosis: Altered nutrition-related lab values related to cardiac dysfunction,renal dysfunction,endocrine dysfuntion as evidenced by lab values,localized or generalized fluid accumulation Nutrition Interventions: Food and/or Nutrient Delivery: Continue Current Diet Nutrition Education/Counseling: No recommendation at this time Coordination of Nutrition Care: Continue to monitor while inpatient Plan of Care discussed with: Pt Goals: Previous Goal Met: Progressing toward Goal(s) Goals: Meet at least 75% of estimated needs,PO intake 75% or greater,by next RD assessment,other (specify) Specify Other Goals: Labs will trend toward baseline Nutrition Monitoring and Evaluation: Behavioral-Environmental Outcomes: None Identified Food/Nutrient Intake Outcomes: Food and Nutrient Intake Physical Signs/Symptoms Outcomes: Biochemical Data,Constipation,Weight,Skin,Nutrition Focused Physical Findings,Fluid Status or Edema Discharge Planning: Continue current diet Nurys Butts Contact: #[phone] * GARCIA Hawkins CNP - 12/21/2021 1:11 PM EDT Order placed for home O2 eval for discharge planning This patient was seen as a hospital courtesy for improved patient care. Thank you for allowing me to participate in the medical care of your patient. Work Categories (check all that apply) [] Avoidable Day Recovered [] Query Response for [name] [x] Discharge Planning [] Readmission Risk Addressed [] PSI / HAC reviewed [] Med Rec Addressed [] SOI Expected Impact [] ROM Expected Impact [] POA Clarified [] [employer]HOU[employer]OCIATE Avoided [] Nursing Function [] Provider Function for [name] [x] Orders Placed [] Symptom Assessment [] Patient Experience [] Patient / Caregiver Conversation * GARCIA King CNP - 12/20/2021 3:56 PM EDT Family Communication Number Called: [phone] Name of Designated Family Rehab Assistant: Arnel Forte Relationship to Patient: daughter Phone Call Outcome: I spoke with the individual listed above. Family Rehab Assistant Updated on the Following: POC and updated status * Amauri Turcios [facility] - 12/20/2021 1:40 PM EDT Pharmacy Vancomycin Consult Follow-Up Note Current Dosin Q12h: Last dose held due to trough = 27 (LD 12/19 @ 13:14) Recent Labs 12/19/21 0537 12/20/21 0527 BUN 26* 26* Recent Labs 12/19/21 0537 12/20/21 0527 CREATININE 1.13 1.02 Recent Labs 12/18/21 0239 WBC 6.3 Ht Readings from Last 1 Encounters: 12/16/21 5' 5 (1.651 m) Wt Readings from Last 1 Encounters: 12/20/21 204 lb 4.8 oz (92.7 kg) Body mass index is 34 kg/m . Estimated Creatinine Clearance: 53 mL/min (based on SCr of 1.02 mg/dL). Trough: 22.8 mcg/ml drawn 12/20/2021 at 12:26 Assessment/Plan: Will reduce dose to 1750mg Q24 hours and draw trough prior to 3rd new dose 12/22 @ 13:00 * Aspen Santos APRN - JATIN - 12/20/2021 12:01 PM EDT Images from the original note were not included. Hospitalist Progress Note 12/20/2021 12:01 PM [phone]: Please page me ([phone]) or perfect serve me for patient care issues. [phone]: Please page [facility] night Hospitalist for any issues. Subjective: Admit Date: 12/13/2021 PCP: KOMAL COHN DO Room#: [id number] Admitting synopsis:Admitted 12/13/21 with AMS and found to have bacteremia/UTI/cellulitis Interval History: No overnight issues. She denies chest pain, sob, abdominal pain, nausea, vomiting, diarrhea, constipation, fevers, or chills. Feeling much better. ADULT DIET; Regular; 4 carb choices (60 gm/meal); No Added Salt (3-4 gm) Patient Vitals for the past 96 hrs (Last 3 readings): Weight 12/20/21 0658 204 lb 4.8 oz (92.7 kg) 12/18/21 0506 204 lb (92.5 kg) 12/17/21 0703 200 lb 9.6 oz (91 kg) 24HR INTAKE/OUTPUT: Intake/Output Summary (Last 24 hours) at 12/20/2021 1201 Last data filed at 12/20/2021 0641 Gross per 24 hour Intake 100 ml Output 2700 ml Net -2600 ml Past Medical History: Diagnosis Date CAD (coronary artery disease) Cirrhosis of liver (HCC) Diabetes mellitus (HCC) Hypertension Osteoporosis Thyroid disease Medications: sodium chloride dextrose ipratropium-albuterol 1 ampule Inhalation BID [Held by provider] vancomycin 1,250 mg IntraVENous Q12H [Held by provider] furosemide 40 mg Oral Daily miconazole Topical BID fluticasone 2 spray Each Nostril Daily aspirin 81 mg Oral Daily atenolol 50 mg Oral Daily vitamin D 5,000 Units Oral Dinner citalopram 20 mg Oral Daily ferrous sulfate 325 mg Oral Daily with breakfast levothyroxine 50 mcg Oral Daily losartan 50 mg Oral Daily [Held by provider] metFORMIN 1,000 mg Oral Dinner metFORMIN 500 mg Oral Daily with breakfast pantoprazole 40 mg Oral QAM AC [Held by provider] minocycline 50 mg Oral Daily ticagrelor 90 mg Oral BID vitamin E 800 Units Oral Daily sodium chloride flush 5-40 mL IntraVENous 2 times per day enoxaparin 40 mg SubCUTAneous Daily potassium chloride 10 mEq Oral Daily with breakfast insulin lispro 0-6 Units SubCUTAneous TID WC LABS: CBC: Recent Labs 12/18/21238 WBC 6.3 RBC 3.17* HGB 10.4* HCT 30.8* MCV 97.1 RDW 13.0 PLT 108* BMP: Recent Labs 12/18/2123812/19/2153612/20/21 05 NA 134* 133* 136 K 3.7 3.7 3.8 CL 104 101 101 CO2 30 31* 33* BUN 24* 26* 26* CREATININE 1.01 1.13 1.02 GLUCOSE 121* 117* 125* CALCIUM 9.1 9.1 9.3 ANIONGAP 1* 2* 3 LIVER PROFILE: Recent Labs 12/18/2123812/19/2137 12/20/21 05 AST 53* 49* 85* ALT 11 12 13 BILITOT 0.9 1.0 1.2 ALKPHOS 98 104 88 LABALBU 3.0* 2.9* 3.2* PROT 6.1* 5.8* 6.0* PT/INR: No results for input(s): PROTIME, INR in the last 72 hours. CARDIAC ENZYMES: No results for input(s): TROPONINI in the last 72 hours. Procalcitonin: Lab Results Component Value Date PROCAL 0.55 12/15/2021 Objective: Vitals: BP (!) 124/50 Pulse 70 Temp 99.3 F (37.4 C) (Temporal) Resp 17 Ht 5' 5 (1.651 m) Wt 204 lb 4.8 oz (92.7 kg) SpO2 98% BMI 34.00 kg/m Pulse Ox: SpO2 Av.3 % Min: 95 % Max: 98 % Supplemental O2: O2 Flow Rate (L/min): 2 L/min General appearance: in no apparent distress HEENT: Head: Normocephalic, no lesions, without obvious abnormality. Heart: regular rate and rhythm, S1, S2 normal, no murmur, click, rub or gallop and systolic murmur:throughout precordium 2/6, blowing at 2nd right intercostal space Lungs: clear to auscultation bilaterally Abdomen: soft, non-tender; bowel sounds normal; no masses, no organomegaly and Obese Extremities: edema BLE Musculoskeletal: AQUILES Neurologic: no cranial nerve deficit and speech normal Psychiatric: appropriate, oriented to person, place, situation and year Skin: Skin color, texture, turgor normal. No rashes or lesions. Assessment/Plan Sepsis Enterococcal bacteremia UTI/RLE cellulitis - ID following - TTE: negative for vegetation - Repeat Blood cultures: NGTD - Continiue Vancomycin - Per ID: Will plan for 14 day course total from 12/15, ON discharge can switch to linezolid 600 mg Q12h till 12/28 po for the remaining course for e. Faecalis bacteremia. AMS: improved HTN/CAD - stable - Continiue BB, Brilinta Hyponatremia: resolved - Likely 2/2 poor oral intake, poor protein intake - BMP in am - encourage oral intake DMT2 - SSI - Metformin HFrEF - Euvolemic - diuretic on hold for now Hypoalbuminemia/hypoproteinemia - Appreciate Nutrition/Dietitian input -am labs, replace lytes prn -increase activity -DVT prophylaxis: [x] Lovenox [] Heparin [] SCDs [] Encourage ambulation [] Already on Anticoagulation [] OAC/NOAC held GI Prophylaxis [x] PPI/H2 [] tolerating diet Advance Directive: Full Code Discharge planning: Home with assist PRN,Home with Home health PT GARCIA KING CNP Division of Hospitalist Medicine Inpatient Medical Services PAGER: [phone] * Ginny Gramajo RPH - 12/19/2021 2:20 PM EDT Pharmacy Vancomycin Consult Follow-Up Note Current Dosin bid Recent Labs 12/18/21 0239 12/19/21 0537 BUN 24* 26* Recent Labs 12/18/21 0239 12/19/21 0537 CREATININE 1.01 1.13 Recent Labs 12/18/21 0239 WBC 6.3 Ht Readings from Last 1 Encounters: 12/16/21 5' 5 (1.651 m) Wt Readings from Last 1 Encounters: 12/18/21 204 lb (92.5 kg) Body mass index is 33.95 kg/m . Estimated Creatinine Clearance: 48 mL/min (based on SCr of 1.13 mg/dL). Trough: 27 mcg/ml drawn 12/19 at 1312 Assessment/Plan: Hold 1 dose and get random level 5/15 at 1300 prior to starting next dose * GARCIA King CNP - 12/19/2021 11:04 AM EDT Images from the original note were not included. Hospitalist Progress Note 12/19/2021 11:04 AM [phone]: Please page me ([phone]) or perfect serve me for patient care issues. [phone]: Please page [facility] night Hospitalist for any issues. Subjective: Admit Date: 12/13/2021 PCP: KOMAL COHN DO Room#: [id number] Admitting synopsis: Admitted 12/13/21 with AMS and found to have bacteremia/UTI/cellulitis Interval History: No overnight issues. Denies chest pain, sob, abdominal pain, nausea, vomiting, diarrhea, constipation, fevers, or chills. States she will need a new glucometer on DC. Also needs Synthroid prescription on DC. ADULT DIET; Regular; 4 carb choices (60 gm/meal); No Added Salt (3-4 gm) Patient Vitals for the past 96 hrs (Last 3 readings): Weight 12/18/21 0506 204 lb (92.5 kg) 12/17/21 0703 200 lb 9.6 oz (91 kg) 24HR INTAKE/OUTPUT: Intake/Output Summary (Last 24 hours) at 12/19/2021 1104 Last data filed at 12/19/2021 0526 Gross per 24 hour Intake Output 2400 ml Net -2400 ml Past Medical History: Diagnosis Date CAD (coronary artery disease) Cirrhosis of liver (HCC) Diabetes mellitus (HCC) Hypertension Osteoporosis Thyroid disease Medications: sodium chloride dextrose ipratropium-albuterol 1 ampule Inhalation BID vancomycin 1,250 mg IntraVENous Q12H [Held by provider] furosemide 40 mg Oral Daily miconazole Topical BID fluticasone 2 spray Each Nostril Daily aspirin 81 mg Oral Daily atenolol 50 mg Oral Daily vitamin D 5,000 Units Oral Dinner citalopram 20 mg Oral Daily ferrous sulfate 325 mg Oral Daily with breakfast levothyroxine 50 mcg Oral Daily losartan 50 mg Oral Daily [Held by provider] metFORMIN 1,000 mg Oral Dinner metFORMIN 500 mg Oral Daily with breakfast pantoprazole 40 mg Oral QAM AC [Held by provider] minocycline 50 mg Oral Daily ticagrelor 90 mg Oral BID vitamin E 800 Units Oral Daily sodium chloride flush 5-40 mL IntraVENous 2 times per day enoxaparin 40 mg SubCUTAneous Daily potassium chloride 10 mEq Oral Daily with breakfast insulin lispro 0-6 Units SubCUTAneous TID WC LABS: CBC: Recent Labs 12/18/21 023 WBC 6.3 RBC 3.17* HGB 10.4* HCT 30.8* MCV 97.1 RDW 13.0 PLT 108* BMP: Recent Labs 12/17/21 0128 12/18/21 0239 12/19/21 0537 NA 137 134* 133* K 3.4* 3.7 3.7 CL 105 104 101 CO2 28 30 31* BUN 28* 24* 26* CREATININE 1.06 1.01 1.13 GLUCOSE 157* 121* 117* CALCIUM 8.9 9.1 9.1 ANIONGAP 3 1* 2* LIVER PROFILE: Recent Labs 12/17/21 0128 12/18/21 0239 12/19/21 0537 AST 42 53* 49* ALT 12 11 12 BILITOT 0.8 0.9 1.0 ALKPHOS 101 98 104 LABALBU 2.9* 3.0* 2.9* PROT 5.7* 6.1* 5.8* PT/INR: No results for input(s): PROTIME, INR in the last 72 hours. CARDIAC ENZYMES: No results for input(s): TROPONINI in the last 72 hours. Procalcitonin: Lab Results Component Value Date PROCAL 0.55 12/15/2021 Objective: Vitals: BP (!) 128/56 Pulse 70 Temp 99.3 F (37.4 C) (Temporal) Resp 18 Ht 5' 5 (1.651 m) Wt 204 lb (92.5 kg) SpO2 96% BMI 33.95 kg/m Pulse Ox: SpO2 Av.3 % Min: 94 % Max: 100 % Supplemental O2: O2 Flow Rate (L/min): 2 L/min General appearance: in no apparent distress HEENT: Head: Normocephalic, no lesions, without obvious abnormality. Heart: regular rate and rhythm, S1, S2 normal, no murmur, click, rub or gallop Lungs: clear to auscultation bilaterally and diminished breath sounds anterior - bilateral and bilaterally Abdomen: soft, non-tender; bowel sounds normal; no masses, no organomegaly and morbid obesity Extremities: edema mild non-pitting edema BLE Musculoskeletal: [place] Neurologic: speech normal and muscle weakness present- general Psychiatric: appropriate, oriented to person, place, situation and year Skin: Skin color, texture, turgor normal. No rashes or lesions. Assessment/Plan Sepsis Enterococcal bacteremia UTI/RLE cellulitis - ID following - TTE: negative for vegetation - Repeat Blood cultures: NGTD - Continiue Vancomycin - Per ID: Will plan for 14 day course total from 12/15, ON discharge can switch to linezolid 600 mg Q12h till 12/28 po for the remaining course for e. Faecalis bacteremia. AMS: improved HTN/CAD - stable - Continiue BB, Brilinta Hyponatremia - Likely 2/2 poor oral intake, poor protein intake - BMP in am - encourage oral intake DMT2 - SSI - Metformin HFrEF - Euvolemic - diuretic on hold for now Hypoalbuminemia/hypoproteinemia - Appreciate Nutrition/Dietitian input -am labs, replace lytes prn -increase activity -DVT prophylaxis: [x] Lovenox [] Heparin [] SCDs [] Encourage ambulation [] Already on Anticoagulation [] OAC/NOAC held GI Prophylaxis [x] PPI/H2 [] tolerating diet Advance Directive: Full Code Discharge planning: TBD GARCIA KING CNP Division of Hospitalist Medicine Inpatient Medical Services PAGER: [phone] * Jess Espino, [employer]IATE - 12/19/2021 10:33 AM EDT Physical Therapy Facility/Department: [facility] Daily Treatment Note Name: Mikel Winston : 1945 Date of Service: 12/19/2021 Discharge Recommendations: Home with assist PRN,Home with Home health PT Patient Diagnosis(es): The primary encounter diagnosis was Altered mental status, unspecified altered mental status type. A diagnosis of Urinary tract infection without hematuria, site unspecified was also pertinent to this visit. Past Medical History: has a past medical history of CAD (coronary artery disease), Cirrhosis of liver (HCC), Diabetes mellitus (HCC), Hypertension, Osteoporosis, and Thyroid disease. Past Surgical History: has a past surgical history that includes Coronary artery bypass graft; Cholecystectomy; Total knee arthroplasty (Right); Tubal ligation; and Appendectomy. Assessment Assessment: Pt presents with increased functional mobility. Pt is mod I for bed mobility, SUP for STS and 200ft of ambulation. Pt requires cues for hand placement and FWW management. Pt will occasionally run into objects. Pt SpO2 WFL on RA. Pt is expected to benefit from continued therapy in order to increase overall independence. Activity Tolerance Activity Tolerance: Patient limited by fatigue;Patient limited by endurance Plan Plan Plan: (4 visits) Current Treatment Recommendations: Strengthening,Balance training,Functional mobility training,Transfer training,Stair training,Gait training,Endurance training,Safety education & training,Home exercise program,Pain management,Equipment evaluation, education, & procurement,Patient/Caregiver education & training,Therapeutic activities,Positioning Safety Devices Type of Devices: All fall risk precautions in place,Call light within reach,Nurse notified,Left in chair,Patient at risk for falls Restraints Restraints Initially in Place: No Restrictions Restrictions/Precautions Restrictions/Precautions: Fall Risk,General Precautions Required Braces or Orthoses?: No Position Activity Restriction Other position/activity restrictions: 2L O2 and IV in tow Subjective General Chart Reviewed: Yes Family / Caregiver Present: No General Comment Comments: Per RN pt okay for therapy. On RA upon arrival Subjective Subjective: Pt pleasant and agreeable to PT Objective Bed mobility Supine to Sit: Modified independent Sit to Supine: Unable to assess (sitting in chair post session) Scooting: Modified independent Bed Mobility Comments: Denied dizziness. HOB elevated no use of bed rails. In recliner post session Transfers Sit to Stand: Supervision (to FWW) Stand to sit: Supervision Comment: Denied dizziness. Pt requires cues for hand placement for safety. Good overall eccentric control. Ambulation Surface: level tile Device: No Device Assistance: Supervision Quality of Gait: Demonstrates a forward flexed reciprocal gait pattern, decreased step height and length, no usteadiness or LOB noted Distance: 200ft x 1 Comments: Pt requires cues for FWW management. Pt would run into objects. SpO2 WFL on RA More Ambulation?: No Stairs/Curb Stairs?: No AM-PAC Score [facility] Inpatient Mobility Raw Score : 23 (12/19/21 1027) AM-PAC Inpatient T-Scale Score : 56.93 (12/19/21 102) Mobility Inpatient CMS 0-100% Score: 11.2 (12/19/21 1027) Mobility Inpatient CMS G-Code Modifier : CI (12/19/211026) Goals Short Term Goals Time Frame for Short term goals: 6 visits Short term goal 1: Pt will complete bed mobility Mod I to promote mobility (met) Short term goal 2: Pt will complete functional transfer to FWW with Mod I to promote safety (not met) Short term goal 3: Pt will ambulate 100 ft with FWW and Mod I to promote mobility (not met) Short term goal 4: Pt will ascend/descend 1 stair SUP to safely enter/exit home (N/A) Short term goal 5: Pt will complete 1-2 sets 5-10 reps LE exercise to promote strength (not met) Patient Goals Patient goals : Pt wants to go home Therapy Time Individual Concurrent Group Co-treatment Time In 08 Time Out 0900 Minutes 16 Timed Code Treatment Minutes: 15 Minutes (1 gait) Jess Espino, POINT OF SALE ASSOCIATE * Stanley Holman Bhumika - 12/18/2021 1:29 PM EDT Occupational Therapy Facility/Department: [facility] Occupational Therapy Daily Treatment Note Name: Mikel Winston : 1945 Date of Service: 12/18/2021 Discharge Recommendations: Home with assist PRN,Home with Home health OT Patient Diagnosis(es): The primary encounter diagnosis was Altered mental status, unspecified altered mental status type. A diagnosis of Urinary tract infection without hematuria, site unspecified was also pertinent to this visit. Past Medical History: has a past medical history of CAD (coronary artery disease), Cirrhosis of liver (HCC), Diabetes mellitus (HCC), Hypertension, Osteoporosis, and Thyroid disease. Past Surgical History: has a past surgical history that includes Coronary artery bypass graft; Cholecystectomy; Total knee arthroplasty (Right); Tubal ligation; and Appendectomy. Assessment Performance deficits / Impairments: Decreased functional mobility ;Decreased ADL status;Decreased endurance;Decreased balance;Decreased high-level IADLs;Decreased posture Assessment: Pt is making good improvements with OT for ADLS adn transfers with pt overall at a SBA to min a level with min fatigue noted. Pt reports having assistance in and out at home. OT is recommending pt to D/C to home with assist PRN and home health OT with pt agreeable. History: Pt in 12/13 with confusion, weakness, and found to have a UTI. REQUIRES OT FOLLOW-UP: Yes Plan Plan Times per Week: 4 visits Current Treatment Recommendations: Strengthening,Balance training,Functional mobility training,Endurance training,Safety education & training,Patient/Caregiver education & training,Equipment evaluation, education, & procurement,Positioning,Self-Care / ADL,Home management training Plan Comment: cont ot tx per poc Restrictions Restrictions/Precautions Restrictions/Precautions: Fall Risk,General Precautions Required Braces or Orthoses?: No Position Activity Restriction Other position/activity restrictions: 2L O2 and IV in tow Subjective General Chart Reviewed: Yes Patient assessed for rehabilitation services?: Yes Family / Caregiver Present: No Subjective Subjective: Pt supine in bed and agreeable to OT tx. General Comment Comments: Per RN pt ok for OT tx. Pain: pt denies pain during OT tx. Social/Functional History Social/Functional History Lives With: Alone Type of Home: Apartment Home Layout: One level Home Access: Stairs to enter with rails Entrance Stairs - Number of Steps: 1 Bathroom Shower/Tub: Walk-in shower Bathroom Toilet: Standard Bathroom Accessibility: Walker accessible Home Equipment: Walker, rolling (glucometer) Receives Help From: Family ADL Assistance: Independent Homemaking Assistance: Independent Homemaking Responsibilities: Yes Ambulation Assistance: Independent Transfer Assistance: Independent Active Sizing Sprayer: No Patient's Sizing Sprayer Info: children Occupation: Retired Objective Pulse: 75 Heart Rate Source: Monitor BP: (!) 142/59 BP Location: Left Arm Patient Position: Sitting MAP (Calculated): 86.67 Resp: 18 SpO2: 98 % O2 Device: Nasal cannula Safety Devices Type of Devices: All fall risk precautions in place;Call light within reach;Nurse notified;Left in chair;Patient at risk for falls Balance Sitting: Intact Standing: With support (pt ephraim up to 5 mins of standing with fww during ADLs and mob in room with no LOB, denies dizziness) Toilet Transfers Toilet - Technique: Ambulating Equipment Used: Grab bars Toilet Transfer: Stand by assistance Toilet Transfers Comments: cues for hand placement ADL Grooming: Stand by assistance UE Bathing: Stand by assistance LE Bathing: Contact guard assistance UE Dressing: Stand by assistance LE Dressing: Minimal assistance Toileting: Stand by assistance Additional Comments: Pt completed full body ADLS while seated with itnermittent standing with SBA for UB and CGA to min A with LB with techs to increase indep and safety with min fatigue noted with rest breaks Bed mobility Supine to Sit: Supervision Sit to Supine: Unable to assess Scooting: Supervision Bed Mobility Comments: HOB elevated and using bed rail for completion with extended time, denies dizziness, left seated in recliner at end of session Transfers Sit to stand: Stand by assistance Stand to sit: Stand by assistance Transfer Comments: cues for hand placement to fww Cognition Overall Cognitive Status: WFL Education Given To: Patient Education Provided: ADL Adaptive Strategies;Transfer Training;Fall Prevention Strategies Education Method: Verbal;Demonstration Barriers to Learning: None Education Outcome: Verbalized understanding;Demonstrated understanding AM-PAC Score AM-PAC Inpatient Daily Activity Raw Score: 19 (12/18/211410) AM-PAC Inpatient ADL T-Scale Score : 40.22 (12/18/211410) ADL Inpatient CMS 0-100% Score: 42.8 (12/18/211410) ADL Inpatient CMS G-Code Modifier : CK (12/18/211410) Goals Short Term Goals Time Frame for Short term goals: 5 visits Short Term Goal 1: Pt will complete full body ADLs with MOD I-progressing Short Term Goal 2: Pt will complete bathroom level toileting with MOD I and LRD-progressing Short Term Goal 3: Pt will complete functional transfers / mobiltiy with LRD and MOD I-progressing Short Term Goal 4: Pt will tolerate > 4 minutes of funcitonal standing with MOD I and LRD to increase endurance for ALDs and functional mobility.-progressing Patient Goals Patient goals : none stated at this time Therapy Time Individual Concurrent Group Co-treatment Time In 1248 Time Out 1329 Minutes 41 Timed Code Treatment Minutes: 41 Minutes (3 ADL) Stanley Bai * Ariel Solitario MD - 12/18/2021 1:15 PM EDT Progress Note 12/18/2021 13:15 Name: Mikel Winston IP Day: 8 Admit Date: 12/13/2021 8:26 AM PCP: KOMAL COHN DO Code Status: Full Code Subjective: Remains on oxygen. No cp, sob, cough, n/v, f/c. Tolerating diet. Weak. D/w pt Physical Examination: Vitals: BP (!) 149/65 Pulse 71 Temp 98.9 F (37.2 C) (Temporal) Resp 18 Ht 5' 5 (1.651 m) Wt 195 lb 11.2 oz (88.8 kg) SpO2 96% BMI 32.57 kg/m Temp (24hrs), Av.4 F (36.9 C), Min:97.9 F (36.6 C), Max:98.9 F (37.2 C) General appearance: alert, cooperative and no distress Mental Status: oriented to person, place and time and normal affect Lungs: coarse bs bilaterally, normal effort Heart: regular rate and rhythm, no murmur Abdomen: soft, nontender, nondistended, bowel sounds present, no masses Extremities: + edema, mild redness RLE, no tenderness in the calves Skin: no gross lesions, rashes Data: Labs: Reviewed labs and CXR Assessment and Plan: Sepsis Enterococcal bacteremia UTI Altered mental status RLE cellulitis HTN DM2 CAD HFrEF Plan: give IV lasix, wean oxygen, continue IV antibiotics-change to PO on dc per ID, ID following, follow up cx's, POCT, SSI, follow up labs, PT/OT, discharge planning, see orders. * Guy Dimas RCP - 12/18/2021 10:33 AM EDT [facility] Respiratory Care Department Progress Note As part of the Respiratory Assessment Program (RAP), the following Respiratory Therapist evaluationhas been completed, including a chart review and clinical/physical assessment. Respiratory Therapist RAP Evaluation Guideline Points 0 1 2 3 4 Points Strongly Consider History Factor No Pulmonary conditions Stable Pulmonary condition(s) Surgery or Intervention that may impact Pulmonary system (at risk) Surgery or Intervention that is impacting Pulmonary system Active Exacerbation of Pulmonary Condition 1 Respiratory Pattern Regular, RR= 12-18 WEISS or Increased RR= 19-24 Irregular, or RR= 25-30 SOB, talk in short sentences, or RR= 31-35 Severe SOB, accessory muscle use, one word answers, or RR>35 0 Aerosol Med(s), High Flow O2 Breath Sounds Clear Diminished in 1 lobe Diminished in ? 2 lobes Adventitious breath sounds Coarse crackles, Wheezes, or Diminished in >2 lobes 2 Aerosol Med(s), Bronchial Hygiene, Hyperinflation Cough & Sputum Strong cough, no secretion retention or production Weak cough, no secretion retention or production Weak cough, w/ production (less often than Q2hr), or secretion retention No cough, w/ secretion retention or production (less often than Q2hr) Significant secretion production (more often than Q2hr) or mucus plug 0 Aerosol Med(s), Bronchial Hygiene, Hyperinflation Level of Activity Ambulatory Ambulatory with Assist Up in chair or edge of bed (dangle) Non-ambulatory, bedridden with active ROM Completely paralyzed or without active ROM 1 Triage 5 0-2 Triage 4 3-5 Triage 3 6-10 Triage 2 11-14 Triage 1 ?15 Total 4 Triage Score = 4 TRIAGE SCORING SUGGESTED FREQUENCIES Aerosol Therapy Bronchial Hygiene Hyperinflation Triage Score Q4h & PRN 1 Q4hWA (QID) & PRN 2 TID & PRN 3 BID & PRN 4 PRN 5 Therapy(s) Indicated Yes/No Aerosol Medication yes Hyperinflation yes Bronchial Hygiene High Flow Oxygen RT to enter/modify frequency of treatment order in EMR/EHR to match this RAP evaluation. Based on this RAP evaluation the following therapy is being initiated: Duoneb At the following frequency: BID Comments: Thank you for involving Respiratory in the care of this patient, * Grace Galvez, POINT OF SALE ASSOCIATE - 12/17/2021 2:53 PM EDT Physical Therapy Facility/Department: [facility] Physical Therapy Treatment Note Name: Mikel Winston : 1945 Date of Service: 12/17/2021 Discharge Recommendations: Home with assist PRN,Home with Home health PT PT Equipment Recommendations Equipment Needed: No Patient Diagnosis(es): The primary encounter diagnosis was Altered mental status, unspecified altered mental status type. A diagnosis of Urinary tract infection without hematuria, site unspecified was also pertinent to this visit. Past Medical History: has a past medical history of CAD (coronary artery disease), Cirrhosis of liver (HCC), Diabetes mellitus (HCC), Hypertension, Osteoporosis, and Thyroid disease. Past Surgical History: has a past surgical history that includes Coronary artery bypass graft; Cholecystectomy; Total knee arthroplasty (Right); Tubal ligation; and Appendectomy. Assessment Assessment: Pt presents with the above deficits and increasing functional mobility compared to lastsession. Bed Mobility demo'd SBA. Funtional transfers CGA and Ambulation CGA with progression to SBA using FWW. Pt would benefit from continued skilled therapy. PT goals progressing but not met at this time. Pt required increased time for task completion this date secondary to fatigue and line management. Recommend Home with assist PRN and HHC PT at discharge. Activity Tolerance Activity Tolerance: Patient limited by fatigue;Patient tolerated treatment well Plan Plan Plan: (5 visits) Current Treatment Recommendations: Strengthening,Balance training,Functional mobility training,Transfer training,Stair training,Gait training,Endurance training,Safety education & training,Home exercise program,Pain management,Equipment evaluation, education, & procurement,Patient/Caregiver education & training,Therapeutic activities,Positioning Plan Comment: goals and treatment plan established in collaboration with pt Safety Devices Type of Devices: Gait belt,Nurse notified,All fall risk precautions in place,Patient at risk for falls,Call light within reach,Left in bed Restraints Restraints Initially in Place: No Restrictions Restrictions/Precautions Restrictions/Precautions: Fall Risk,General Precautions Required Braces or Orthoses?: No Position Activity Restriction Other position/activity restrictions: 2L O2 and IV in tow Subjective General Chart Reviewed: Yes Family / Caregiver Present: No Follows Commands: Within Functional Limits General Comment Comments: Per RN pt okay for therapy Subjective Subjective: Pt pleasant and agreeable to PT Social/Functional History Social/Functional History Lives With: Alone Type of Home: Apartment Home Layout: One level Home Access: Stairs to enter with rails Entrance Stairs - Number of Steps: 1 Bathroom Shower/Tub: Walk-in shower Bathroom Toilet: Standard Bathroom Accessibility: Walker accessible Home Equipment: Walker, rolling (glucometer) Receives Help From: Family ADL Assistance: Independent Homemaking Assistance: Independent Homemaking Responsibilities: Yes Ambulation Assistance: Independent Transfer Assistance: Independent Active Sizing Sprayer: No Patient's Sizing Sprayer Info: children Occupation: Retired Vision/Hearing Cognition Orientation Overall Orientation Status: Within Functional Limits Cognition Overall Cognitive Status: WFL Objective Pulse: 74 Heart Rate Source: Monitor BP: 94/62 BP Location: Left Arm Patient Position: Supine MAP (Calculated): 72.67 Resp: 18 SpO2: 100 % O2 Device: Nasal cannula Bed mobility Supine to Sit: Stand by assistance Sit to Supine: Stand by assistance Bed Mobility Comments: Denies dizziness and increase in pain. Complete all bed mobility SBA with increased time to complete, with no assist required for BLE management or trunk control Transfers Sit to Stand: Contact guard assistance Stand to sit: Contact guard assistance Comment: Completed all funcitonal transfers with CGA to FWW from EOB x 2 and standard toilet x 2. cues for proper hand placement and to not pull up on FWw for first transfer. All following transfers demo'd with proper hand and foot placcement. Pt with good safety awareness when returning to transfer surface. No LOB noted. pt steady throughout. Increased time to complete tasks Ambulation Surface: level tile Device: Rolling Walker Assistance: Contact guard assistance;Stand by assistance Quality of Gait: Short reciprocal gait with decreased step height and length Gait Deviations: Slow Elba;Decreased step length;Decreased step height Distance: 150ft x 2, 15ft Comments: Initial ambulation CGA with c/o light headedness. Once subsided, pt able to abulate SBA. No LOB or unsteadiness noted. SpO2 WFL and no SOB noted. Cues for upright trunk posture and to maintain close proximity to FWW. Good carryover noted. Pt with good directional transitions, maintaining LEILANI within FWW at all times. Stairs/Curb Stairs?: No Balance Comments: SBA for self pericare in standing. SUP sitting EOB AM-PAC Score [facility] Inpatient Mobility Raw Score : 19 (12/17/21 1455) AM-PAC Inpatient T-Scale Score : 45.44 (12/17/21 1455) Mobility Inpatient CMS 0-100% Score: 41.77 (12/17/21 1455) Mobility Inpatient [facility] G-Code Modifier : CK (12/17/211454) Goals Short Term Goals Time Frame for Short term goals: 6 visits Short term goal 1: Pt will complete bed mobility Mod I to promote mobility (PROGRESSING) Short term goal 2: Pt will complete functional transfer to FWW with Mod I to promote safety (PROGRESSING) Short term goal 3: Pt will ambulate 100 ft with FWW and Mod I to promote mobility (PROGRESSING) Short term goal 4: Pt will ascend/descend 1 stair SUP to safely enter/exit home (NOT ADDRESSED) Short term goal 5: Pt will complete 1-2 sets 5-10 reps LE exercise to promote strength (NOT ADDRESSED) Patient Goals Patient goals : Pt wants to go home Education Patient Education Education Given To: Patient Education Provided: Role of Therapy;Transfer Training;Equipment;Plan of Care;Energy Conservation;Fall Prevention Strategies Education Method: Demonstration;Verbal Barriers to Learning: None Education Outcome: Verbalized understanding;Demonstrated understanding Therapy Time Individual Concurrent Group Co-treatment Time In 1409 Time Out 1443 Minutes 34 Timed Code Treatment Minutes: 34 Minutes (GT, Ther Act) POINT OF SALE ASSOCIATE wore surgical mask and gloves throughout entire session with patient. Patient wore mask at all times when out of room. Grace Galvez, POINT OF SALE ASSOCIATE * Ginny Gramajo RPH - 12/17/2021 2:20 PM EDT Pharmacy Vancomycin Consult Follow-Up Note Current Dosin q 24 Recent Labs 12/16/21 0415 12/17/21 0128 BUN 27* 28* Recent Labs 12/16/21 0415 12/17/21 0128 CREATININE 1.28* 1.06 Recent Labs 12/14/21 1810 12/15/21 0353 WBC 9.7 10.1 Ht Readings from Last 1 Encounters: 12/16/21 5' 5 (1.651 m) Wt Readings from Last 1 Encounters: 12/17/21 200 lb 9.6 oz (91 kg) Body mass index is 33.38 kg/m . Estimated Creatinine Clearance: 50 mL/min (based on SCr of 1.06 mg/dL). Trough: 11.4 mcg/ml drawn 12/17 at 1312 Assessment/Plan: Increase dose to 1250 q 12 starting 12/18 at 0130 next trough 12/19 at 1300 * Ariel Solitario MD - 12/17/2021 1:51 PM EDT Progress Note 12/17/2021 1:51 PM Name: Mikel Winston IP Day: 4 Admit Date: 12/13/2021 8:26 AM PCP: KOMAL COHN DO Code Status: Full Code Subjective: Remains on oxygen. No cp, sob, cough, n/v, f/c. Tolerating diet. Weak. D/w pt Physical Examination: Vitals: BP 94/62 Pulse 74 Temp 98.1 F (36.7 C) (Temporal) Resp 18 Ht 5' 5 (1.651 m) Wt 200 lb 9.6 oz (91 kg) SpO2 100% BMI 33.38 kg/m Temp (24hrs), Av F (36.7 C), Min:97.3 F (36.3 C), Max:98.5 F (36.9 C) General appearance: alert, cooperative and no distress Mental Status: oriented to person, place and time and normal affect Lungs: coarse bs bilaterally, normal effort Heart: regular rate and rhythm, no murmur Abdomen: soft, nontender, nondistended, bowel sounds present, no masses Extremities: + edema, mild redness RLE, no tenderness in the calves Skin: no gross lesions, rashes Data: Labs: Recent Labs 12/14/21 1810 12/15/21 0353 WBC 9.7 10.1 HGB 12.5 10.8* PLT 85* 75* Recent Labs 12/16/21 0415 12/17/21 0128 NA 131* 137 K 3.0* 3.4* CL 101 105 CO2 27 28 BUN 27* 28* CREATININE 1.28* 1.06 GLUCOSE 140* 157* Recent Labs 12/16/21 0415 12/17/21 0128 AST 42 42 ALT 14 12 BILITOT 1.0 0.8 ALKPHOS 73 101 Assessment and Plan: Sepsis Enterococcal bacteremia UTI Altered mental status RLE cellulitis HTN DM2 CAD HFrEF Plan: continue IV antibiotics-change to PO on dc per ID, ID following, follow up cx's, wean oxygen,lasix PO, follow up CXR, POCT, SSI, follow up labs, PT/OT, discharge planning, see orders. * Su Guy MD - 12/17/2021 8:38 AM EDT Images from the original note were not included. [facility] - Infectious Diseases Attending Progress Note Subjective: Following patient for e.coli UTI & e. Faecalis bacteremia. She reports feeling better today. Objective: Vitals: Patient Vitals for the past 24 hrs: BP Temp Temp src Pulse Resp SpO2 Weight 12/17/21 1149 94/62 98.1 F (36.7 C) Temporal 74 18 100 % 12/17/21 0814 111/68 98.2 F (36.8 C) Temporal 76 18 99 % 12/17/21 0703 200 lb 9.6 oz (91 kg) 12/17/21 0009 (!) 113/52 98.5 F (36.9 C) Oral 75 99 % 12/16/21 2045 98 % 12/16/212000 123/60 97.3 F (36.3 C) Temporal 70 18 98 % Physical Exam Constitutional: Appearance: Normal appearance. She is obese. HENT: Head: Normocephalic and atraumatic. Nose: Nose normal. Mouth/Throat: Mouth: Mucous membranes are moist. Pharynx: Oropharynx is clear. Eyes: Extraocular Movements: Extraocular movements intact. Conjunctiva/sclera: Conjunctivae normal. Cardiovascular: Rate and Rhythm: Normal rate and regular rhythm. Heart sounds: Normal heart sounds. No murmur heard. Pulmonary: Effort: Pulmonary effort is normal. No respiratory distress. Breath sounds: Normal breath sounds. Comments: Oxygen by nasal cannula Abdominal: General: Bowel sounds are normal. Palpations: Abdomen is soft. Tenderness: There is no abdominal tenderness. Musculoskeletal: General: No swelling or tenderness. Normal range of motion. Cervical back: Normal range of motion and neck supple. Skin: General: Skin is warm and dry. Neurological: General: No focal deficit present. Mental Status: She is alert and oriented to person, place, and time. Psychiatric: Mood and Affect: Mood normal. Labs: Recent Labs 12/15/21 0353 12/16/21 0415 12/17/21 0128 NA 133* 131* 137 K 3.2* 3.0* 3.4* CL 103 101 105 CO2 24 27 28 BUN 25* 27* 28* CREATININE 1.20 1.28* 1.06 GLUCOSE 212* 140* 157* CALCIUM 8.7 8.5 8.9 PROT 5.9* 5.5* 5.7* LABALBU 2.9* 2.7* 2.9* BILITOT 1.2 1.0 0.8 ALKPHOS 68 73 101 AST 49* 42 42 ALT 25 14 12 PROCAL 0.55* -- -- Recent Labs 12/14/21 1810 12/15/21 0353 WBC 9.7 10.1 HGB 12.5 10.8* HCT 37.2 32.0* PLT 85* 75* GRANULOCYTES 79.5 82.6* LYMPHOPCT 7.5* 7.3* MONOPCT 11.2* 9.7 LABEOS 1.3 0.1* BASOPCT 0.5 0.3 NEUTROABS 7.7* 8.3* Micro: No results for input(s): COVID19 in the last 72 hours. Cultures: Lab Results Component Value Date BC No growth at 1 day. No growth at 2 days. 12/15/2021 No growth at 1 day. No growth at 2 days. 12/15/2021 Enterococcus faecalis 12/13/2021 12/13/2021 Isolated: For identification and/or sensitivity, refer to culture collected on: 12/13/2021 at 1518 ([id number]). 12/13/2021 Enterococcus faecalis DETECTED; Leticia/B Not Detected. Presumptive identification performed using [employer] PCR methodology; confirmatory identification to follow. _ The [employer] BCID2 PCR Panel can detect the following targets: E. faecalis, E. faecium, Staphylococcus spp., S. aureus, S. epidermidis, S. lugdunensis, Streptococcus spp., S. pyogenes (Group A), S. agalactiae (Group B), S. pneumoniae, A. baumannii complex, B. fragilis, H. influenzae, N. meningitidis (encapsulated), P. aeruginosa, S. maltophilia, Enterobacterales, E. cloacae complex, E. coli, K. aerogenes, K. oxytoca, K. pneumoniae, Proteus spp., Salmonella spp., S. marcescens, C. albicans, C. auris, C. glabrata, C. krusei, C. parapsilosis, C. tropicalis, C. neoformans/gattii, and antimicrobial resistance genes: mecA/C, Leticia/B, CTX-M, IMP, KPC, NDM, OXA-48-like, VIM, and mcr-1. BC Enterococcus faecalis 12/13/2021 BC Isolated: 12/13/2021 No results found for: LABAERO No results found for: LABANAE No results found for: RESPCULTURE Blood Culture, Routine Enterococcus faecalis Abnormal Blood Culture, Routine Isolated: Resulting Agency [facility] [facility] Contains abnormal data Culture, Blood 2 Order: [id number] Status: Final result Visible to patient: No (not released) Next appt: None Specimen Information: Blood LA 0 Result Notes Component 12/13/21 1518 Susceptibility Enterococcus faecalis (1) Antibiotic Interpretation Microscan Method Status ampicillin Sensitive <=2 ug/mL BACTERIAL SUSCEPTIBILITY PANEL BY CHRISTA vancomycin Sensitive 1 ug/mL BACTERIAL SUSCEPTIBILITY PANEL BY CHRISTA Gentamicin, High Level Resistant SYN-R ug/mL BACTERIAL SUSCEPTIBILITY PANEL BY CHRISTA Streptomycin, Hi Level Resistant SYN-R ug/mL BACTERIAL SUSCEPTIBILITY PANEL BY CHRISTA Lines: PIV Radiography/Echo/Other: CONCLUSIONS SUMMARY: 1. Left ventricle: The cavity size is normal. Wall thickness is mildly increased. Systolic function is mildly decreased by visual assessment. The estimated ejection fraction is 45-50%. 2. Right ventricle: The cavity size is moderately dilated. Systolic function is mildly decreased. 3. Ventricular septum: Abnormal septal motion due to left bundle branch block. 4. Left atrium: The atrium is mildly dilated. 5. Aortic valve: There is mild to moderate stenosis. The mean systolic gradient is 16 mm Hg. The peak systolic gradient is 26 mm Hg. The valve area by the velocity-time integral method is 1.3 cm^2. Antimicrobials,Start/End Dates: Ceftriaxone: 12/13 Cefepime: 12/13- Vanc 12/13. 12/15- Cefazolin 12/14- Impression: Severe sepsis E.coli Uti E faecalis bacteremia: repeat cx from 12/15 ngtd, TTE neg for valve vegetation. repeat blood cx from12/15 ngtd Plan: - stop iv cefazolin & IV vanc - Will plan for 14 day course total from 12/15, ON discharge can switch to linezolid 600 mg Q12h till 12/28 po for the remaining course for e. Faecalis bacteremia. - f/u repeat blood cx till final ID will sign off now. Please page with Qs or concerns. More that 51% total time 45 Minutes counseling (or coordinating care) and providing discussion regarding diagnosis, clinical and radiological findings, plan of care expectations & antimicrobials. * Ariel Solitario MD - 12/16/2021 2:48 PM EDT Progress Note 12/16/2021 2:48 PM Name: Mikel Winston IP Day: 3 Admit Date: 12/13/2021 8:26 AM PCP: KOMAL COHN DO Code Status: Full Code Subjective: Weak. On oxygen. Overall feeling better. No cp, sob, cough, n/v, f/c. Tolerating diet. D/w pt Physical Examination: Vitals: BP (!) 136/56 Pulse 76 Temp 98.6 F (37 C) (Temporal) Resp 18 Ht 5' 5 (1.651 m) Wt 203 lb8 oz (92.3 kg) SpO2 98% BMI 33.86 kg/m Temp (24hrs), Av.5 F (36.9 C), Min:98.1 F (36.7 C), Max:98.7 F (37.1 C) General appearance: alert, cooperative and no distress Mental Status: oriented to person, place and time and normal affect Lungs: coarse bs bilaterally, normal effort Heart: regular rate and rhythm, no murmur Abdomen: soft, nontender, nondistended, bowel sounds present, no masses Extremities: + edema, mild redness RLE, no tenderness in the calves Skin: no gross lesions, rashes Data: Labs: Recent Labs 12/14/21 1810 12/15/21 035 WBC 9.7 10.1 HGB 12.5 10.8* PLT 85* 75* Recent Labs 12/15/21 0353 12/16/21 0415 NA 133* 131* K 3.2* 3.0* CL 103 101 CO2 24 27 BUN 25* 27* CREATININE 1.20 1.28* GLUCOSE 212* 140* Recent Labs 12/15/21 0353 12/16/21 0415 AST 49* 42 ALT 25 14 BILITOT 1.2 1.0 ALKPHOS 68 73 Assessment and Plan: Sepsis Enterococcal bacteremia UTI Altered mental status RLE cellulitis HTN DM2 CAD CHF Plan: continue IV antibiotics, ID following, follow up cx's, IVF, POCT, SSI, follow up labs, PT/OT,discharge planning, see orders. * Jade Bland, POLISHING MACHINE OPERATOR HELPER - 12/16/2021 12:22 PM EDT [facility] Respiratory Care Department Progress Note As part of the Respiratory Assessment Program (RAP), the following Respiratory Therapist evaluationhas been completed, including a chart review and clinical/physical assessment. Respiratory Therapist RAP Evaluation Guideline Points 0 1 2 3 4 Points Strongly Consider History Factor No Pulmonary conditions Stable Pulmonary condition(s) Surgery or Intervention that may impact Pulmonary system (at risk) Surgery or Intervention that is impacting Pulmonary system Active Exacerbation of Pulmonary Condition 1 Respiratory Pattern Regular, RR= 12-18 WEISS or Increased RR= 19-24 Irregular, or RR= 25-30 SOB, talk in short sentences, or RR= 31-35 Severe SOB, accessory muscle use, one word answers, or RR>35 1 Aerosol Med(s), High Flow O2 Breath Sounds Clear Diminished in 1 lobe Diminished in ? 2 lobes Adventitious breath sounds Coarse crackles, Wheezes, or Diminished in >2 lobes 2 Aerosol Med(s), Bronchial Hygiene, Hyperinflation Cough & Sputum Strong cough, no secretion retention or production Weak cough, no secretion retention or production Weak cough, w/ production (less often than Q2hr), or secretion retention No cough, w/ secretion retention or production (less often than Q2hr) Significant secretion production (more often than Q2hr) or mucus plug 0 Aerosol Med(s), Bronchial Hygiene, Hyperinflation Level of Activity Ambulatory Ambulatory with Assist Up in chair or edge of bed (dangle) Non-ambulatory, bedridden with active ROM Completely paralyzed or without active ROM 0 Triage 5 0-2 Triage 4 3-5 Triage 3 6-10 Triage 2 11-14 Triage 1 ?15 Total 4 Triage Score = 4 TRIAGE SCORING SUGGESTED FREQUENCIES Aerosol Therapy Bronchial Hygiene Hyperinflation Triage Score Q4h & PRN 1 Q4hWA (QID) & PRN 2 TID & PRN 3 BID & PRN 4 PRN 5 Therapy(s) Indicated Yes/No Aerosol Medication yes Hyperinflation Bronchial Hygiene High Flow Oxygen PEF: Inspiratory Flow (L/sec): IVC: FVC: FEV1: FVE1/FVC: Patient instructed and returned demonstration on use of MDI (with spacer, as appropriate) No RT to enter/modify frequency of treatment order in EMR/EHR to match this RAP evaluation. Based on this RAP evaluation the following therapy is being initiated: At the following frequency: tid Comments: Thank you for involving Respiratory in the care of this patient, * Laurence Stanley RD, LD - 12/16/2021 11:57 AM EDT Comprehensive Nutrition Assessment Type and Reason for Visit: Initial,Consult (HF) Nutrition Recommendations/Plan: 1. Modify diet to 60g CHO/meal, WILLA (3-4g Na) diet per MNT protocol. 2. PO intakes are adequate- ONS not currently indicated. 3. Pt was receptive to receiving diet information. Provided diet education/handout on CHO control diet and low sodium restrictions. Provided pt with Eating Healthy with Diabetes plate method handout.Also provided low sodium nutrition therapy handout and handout on sodium content of foods from the [facility] Care Manual. Pt did admit that consistently following a diet is difficult due to pt livingby herself. Pt does not always prepare home cooked meals and may rely on high sodium, convenience type foods. Pt admits to using canned foods (tuna, ham, some veggies), but stated that she does like frozen vegetables also. RD contact information provided for questions/concerns. 4. Please document pt's PO intakes via flowsheet to accurately assess PO intake adequacy. 5. Monitor intakes, wts, and labs. RD will follow. 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 Pt's mentation seemed improved this AM. Pt is able to answer questions appropriately and carry on conversation. Pt reports that her appetite is intact and that she ate all of her lunch. Nutrition Related Findings: +2 BLE edema; Na 131, K+ 3.0, BUN 27, Cr 1.28, GFR 40.4, Mag 1.3, POC Glucose 150, 215, 185, Hgb 10.8, Hct 32.0, NT pro BNP 12,693, albumin 2.7 Wound Type: (red buttock, red, dry swollen/edematous abfold, right leg red/dry/edematous) Current Nutrition Intake & Therapies: Average Meal Intake: 76-100% Average Supplements Intake: None Ordered ADULT DIET; Regular; 4 carb choices (60 gm/meal); No Added Salt (3-4 gm) Anthropometric Measures: Height: 5' 5 (165.1 cm) [place] Body Weight (IBW): 125 lbs (57 kg) Admission Body Weight: 203 lb (92.1 kg) Current Body Weight: 203 lb (92.1 kg), 162.4 % IBW. Weight Source: Stated Current BMI (kg/m2): 33.8 Usual Body Weight: 200 lb (90.7 kg) (stated) % Weight Change (Calculated): 1.5 Weight Adjustment For: No Adjustment BMI Categories: Obese Class 1 (BMI 30.0-34.9) Estimated Daily Nutrient Needs: Energy Requirements Based On: Kcal/kg Weight Used for Energy Requirements: [place] Energy (kcal/day): 4438-4525 kcals (25-30) Weight Used for Protein Requirements: [place] Protein (g/day): 57-68 Fluid (ml/day): per MD Nutrition Diagnosis: Altered nutrition-related lab values related to renal dysfunction,cardiac dysfunction,endocrine dysfuntion as evidenced by lab values,localized or generalized fluid accumulation Nutrition Interventions: Food and/or Nutrient Delivery: Modify Current Diet Nutrition Education/Counseling: Education completed,Education needed Coordination of Nutrition Care: Continue to monitor while inpatient Plan of Care discussed with: Pt Goals: Previous Goal Met: Progressing toward Goal(s) Goals: Meet at least 75% of estimated needs,PO intake 75% or greater,other (specify) Specify Other Goals: Labs will trend towards baseline Nutrition Monitoring and Evaluation: Behavioral-Environmental Outcomes: None Identified Food/Nutrient Intake Outcomes: Diet Advancement/Tolerance,Food and Nutrient Intake Physical Signs/Symptoms Outcomes: Biochemical Data,GI Status,Fluid Status or Edema,Nutrition Focused Physical Findings,Skin,Weight Discharge Planning: Continue current diet Laurence Stanley RD, LD Contact: *[phone] * Ariel Solitario MD - 12/15/2021 1:44 PM EDT Progress Note 12/15/2021 1:44 PM Name: Mikel Winston IP Day: 2 Admit Date: 12/13/2021 8:26 AM PCP: KOMAL COHN DO Code Status: Full Code Subjective: No cp, sob, cough, n/v, f/c. Tolerating diet. D/w pt Physical Examination: Vitals: BP 130/60 Pulse 73 Temp 99 F (37.2 C) (Temporal) Resp 20 Ht 5' 5 (1.651 m) Wt 203 lb 8 oz (92.3 kg) SpO2 96% BMI 33.86 kg/m Temp (24hrs), Av.5 F (37.5 C), Min:99 F (37.2 C), Max:100.3 F (37.9 C) General appearance: alert, cooperative and no distress Mental Status: oriented to person, place and time and normal affect Lungs: coarse bs bilaterally, normal effort Heart: regular rate and rhythm, no murmur Abdomen: soft, nontender, nondistended, bowel sounds present, no masses Extremities: + edema, mild redness RLE, no tenderness in the calves Skin: no gross lesions, rashes Data: Labs: Recent Labs 12/14/21180912/15/21 0353 WBC 9.7 10.1 HGB 12.5 10.8* PLT 85* 75* Recent Labs 12/14/21180922 0353 NA 136 133* K 3.8 3.2* CL 108* 103 CO2 21* 24 BUN 24* 25* CREATININE 1.03 1.20 GLUCOSE 211* 212* Recent Labs 12/14/210 12/15/21 0353 AST 63* 49* ALT 32 25 BILITOT 1.4* 1.2 ALKPHOS 94 68 Assessment and Plan: Sepsis Enterococcal bacteremia UTI Altered mental status RLE cellulitis HTN DM2 CAD CHF Plan: ID evaluation, continue IV antibiotics, follow up cx's, IVF, POCT, SSI, follow up labs, PT/OT, discharge planning, see orders. * Quinn Alcala OT - 12/15/2021 12:14 PM EDT Occupational Therapy Facility/Department: [facility] Occupational Therapy Initial Assessment Name: Mikel Winston : 1945 Date of Service: 12/15/2021 Discharge Recommendations: Home with assist PRN,Home with Home health OT OT Equipment Recommendations Equipment Needed: No Patient Diagnosis(es): The primary encounter diagnosis was Altered mental status, unspecified altered mental status type. A diagnosis of Urinary tract infection without hematuria, site unspecified was also pertinent to this visit. Past Medical History: has a past medical history of CAD (coronary artery disease), Cirrhosis of liver (HCC), Diabetes mellitus (HCC), Hypertension, Osteoporosis, and Thyroid disease. Past Surgical History: has a past surgical history that includes Coronary artery bypass graft; Cholecystectomy; Total knee arthroplasty (Right); Tubal ligation; and Appendectomy. Assessment Performance deficits / Impairments: Decreased functional mobility ;Decreased ADL status;Decreased endurance;Decreased balance;Decreased high-level IADLs;Decreased posture Assessment: Pt in 12/13 with confusion, weakness, and found to have a UTI. She was previously IND forADLs, IALDs, and functional transfers / mobility. she is currently MIN A to CGA for LB ADLs, and SBA for UB ADLs with CGA for functional transfers / mobiltiy with a FWW. She requires occasional v.c. to maintian FWW use at this time. She was able to complete bathroom level toileting tasks with LB dressing at this time, requirng MIN A to don her brief over her feet and CGA for pants management / pericare at this time. She requires extended time this date for all functional tasks and requires functional rest breaks d/t fatigue. SpO2 remains WLF throughout. She would benefit from skilled OT services to address the above performance deficits. Recommend planned D/C for [facility] OT with assits PRN. Prognosis: Good Decision Making: Medium Complexity History: Pt in 12/13 with confusion, weakness, and found to have a UTI. Exam: AM-PAC Assistance / Modification: MIN A - SBA REQUIRES OT FOLLOW-UP: Yes Activity Tolerance Activity Tolerance: Patient limited by fatigue Plan Plan Times per Week: 5 visits Current Treatment Recommendations: Strengthening,Balance training,Functional mobility training,Endurance training,Safety education & training,Patient/Caregiver education & training,Equipment evaluation, education, & procurement,Positioning,Self-Care / ADL,Home management training Plan Comment: POC and goals established in collaboration with pt. Restrictions Restrictions/Precautions Restrictions/Precautions: Fall Risk,General Precautions Required Braces or Orthoses?: No Subjective General Chart Reviewed: Yes Patient assessed for rehabilitation services?: Yes Family / Caregiver Present: No Subjective Subjective: pleasant and cooperative General Comment Comments: OK to see per RN, pt left supine in bed, call light in reach, all fall risk precautions taken, gait belt in place Pain: denies Social/Functional History Social/Functional History Lives With: Alone Type of Home: Apartment Home Layout: One level Home Access: Stairs to enter with rails Entrance Stairs - Number of Steps: 1 Bathroom Shower/Tub: Walk-in shower Bathroom Toilet: Standard Bathroom Accessibility: Walker accessible Home Equipment: Walker, rolling,Lift chair Receives Help From: Family ADL Assistance: Independent Homemaking Assistance: Independent Homemaking Responsibilities: Yes Ambulation Assistance: Independent (FWW in home, no device in community) Transfer Assistance: Independent Objective Pulse: 73 Heart Rate Source: Monitor BP: 130/60 BP Location: Left Arm Patient Position: Sitting MAP (Calculated): 83.33 Resp: 17 SpO2: 99 % O2 Device: Nasal cannula Hearing: Within functional limits Observation/Palpation Posture: Fair Observation: 4L O2 n.c. Safety Devices Type of Devices: Gait belt;Nurse notified;All fall risk precautions in place;Patient at risk for falls;Call light within reach;Left in bed Restraints Restraints Initially in Place: No Balance Sitting: (SUP) Standing: (CGA, at FWW, no gross LOB, ~ 3 minutes of functional standing) Gait Overall Level of Assistance: Contact-guard assistance (at FWW, cues for proper FWW use and management required with good teach back. She demos good hand placement at device. She requiers increased time to complete functional home distances at this time. She demos increased fatigue following mobility) Distance (ft): (functional home distances in hallway, Mild fatigue noted upon completion.) Assistive Device: Walker, rolling Toilet Transfers Toilet - Technique: Ambulating Equipment Used: Grab bars Toilet Transfer: Contact guard assistance Toilet Transfers Comments: Pt requires v.c. this date to complete toilet transfers with use of FWW this date with pt abandoning FWW to complete bathroom level toileting. Educated on use of FWW and need for use of device to increase safety and stability with good verbal understanding noted. Increased reliance on grab bars at this time with good hand placement noted. AROM: Generally decreased, functional (~ 90 shoulder flexion functionally observed) PROM: Generally decreased, functional (> +3/5 grossly observed BUE) Sensation: Impaired (reports chronic BLE numbness / tingling) ADL Feeding: Modified independent Grooming: Stand by assistance UE Bathing: Stand by assistance LE Bathing: Minimal assistance UE Dressing: Stand by assistance LE Dressing: Minimal assistance Toileting: Contact guard assistance Additional Comments: Pt requires extended time this date to complete all functional tasks this date. She was able to copmlete bathroom level toileting with CGA total for pants management and pericarethis date with increased reliance on grab bars for stability. She completed LB dressing this tasks with MIN A overall for donning briefs over her distal feet, however was CGA for pants management to pull up over hips. Increased fatigue noted with completion of ADL tasks, requiring occasional rest breaks for extended tasks. Activity Tolerance Activity Tolerance: Patient tolerated evaluation without incident;Patient limited by fatigue Bed mobility Supine to Sit: Stand by assistance Sit to Supine: Stand by assistance Scooting: Stand by assistance Bed Mobility Comments: Pt denies dizziness. She complete all bed mobility SBA with slight increasedtime to complete, with no assist required for BLE management or trunk control Transfers Sit to stand: Contact guard assistance Stand to sit: Contact guard assistance Transfer Comments: at FWW, educated on proper FWW management at this time. She demos no c/o dizziness with change in position this date. She requires increased time to complete functional transfers this date. Cognition Overall Cognitive Status: WFL Education Given To: Patient Education Provided: Role of Therapy;Plan of Care;Transfer Training;ADL Adaptive Strategies Education Method: Verbal Education Outcome: Verbalized understanding;Demonstrated understanding AM-PAC Score AM-[facility] Inpatient Daily Activity Raw Score: 19 (12/15/211214) AM-PAC Inpatient ADL T-Scale Score : 40.22 (12/15/211214) ADL Inpatient CMS 0-100% Score: 42.8 (12/15/211214) ADL Inpatient CMS G-Code Modifier : CK (12/15/211214) Goals Short Term Goals Time Frame for Short term goals: 5 visits Short Term Goal 1: Pt will complete full body ADLs with MOD I Short Term Goal 2: Pt will complete bathroom level toileting with MOD I and LRD Short Term Goal 3: Pt will complete functional transfers / mobiltiy with LRD and MOD I Short Term Goal 4: Pt will tolerate > 4 minutes of funcitonal standing with MOD I and LRD to increase endurance for ALDs and functional mobility. Patient Goals Patient goals : none stated at this time Therapy Time Individual Concurrent Group Co-treatment Time In 958 Time Out 1027 Minutes 28 Timed Code Treatment Minutes: 10 Minutes (ADL) Quinn Alcala OT * Tiffany Moreno LPN - 12/15/2021 10:56 AM EDT Patient SpO2 99% on 4L, decreased to 3L at this time. Will continue to monitor. 1540: Decreased O2 to 2L. Tolereated titration well. Remains at 98% on 2L O2 NC. * Siddharth Cabello, PT - 12/15/2021 10:35 AM EDT Physical Therapy Facility/Department: [facility] Physical Therapy Initial Assessment Name: Mikel Winston : 1945 Date of Service: 12/15/2021 Discharge Recommendations: Home with assist PRN,Home with Home health PT PT Equipment Recommendations Equipment Needed: No Patient Diagnosis(es): The primary encounter diagnosis was Altered mental status, unspecified altered mental status type. A diagnosis of Urinary tract infection without hematuria, site unspecified was also pertinent to this visit. Past Medical History: has a past medical history of CAD (coronary artery disease), Cirrhosis of liver (HCC), Diabetes mellitus (HCC), Hypertension, Osteoporosis, and Thyroid disease. Past Surgical History: has a past surgical history that includes Coronary artery bypass graft; Cholecystectomy; Total knee arthroplasty (Right); Tubal ligation; and Appendectomy. Assessment Body Structures, Functions, Activity Limitations Requiring Skilled Therapeutic Intervention: Decreased functional mobility ;Decreased strength;Decreased balance;Decreased safe awareness;Decreased endurance Assessment: Pt presents with decreased functional mobility, safety awareness, balance and enduranceafter admission 12/13 with altered mental status, UTI. At baseline pt indepedent with lift chair, FWW. Today she demo bed mobility SBA, functional transfers and ambulation CGA with FWW, is at increasedfalls risk. She will benefit from skilled therapy to promote safety and mobility Therapy Prognosis: Good Decision Making: Medium Complexity Exam: [facility] Clinical Presentation: Pt admitted 12/13 with UTI. She has medical history as indicated which contributes to her clinical presentation. She complete functional mobility CGA-SBA with FWW and will benefit from [facility] PT Barriers to Learning: None Requires PT Follow-Up: Yes Activity Tolerance Activity Tolerance: Patient tolerated evaluation without incident;Patient limited by fatigue Plan Plan Plan: (6 visits) Current Treatment Recommendations: Strengthening,Balance training,Functional mobility training,Transfer training,Stair training,Gait training,Endurance training,Safety education & training,Home exercise program,Pain management,Equipment evaluation, education, & procurement,Patient/Caregiver education & training,Therapeutic activities,Positioning Plan Comment: goals and treatment plan established in collaboration with pt Safety Devices Type of Devices: Gait belt,Nurse notified,All fall risk precautions in place,Patient at risk for falls,Call light within reach,Left in bed Restrictions Restrictions/Precautions Restrictions/Precautions: Fall Risk,General Precautions Required Braces or Orthoses?: No Subjective Pain: denies General Chart Reviewed: Yes Patient assessed for rehabilitation services?: Yes Family / Caregiver Present: No Follows Commands: Within Functional Limits General Comment Comments: Per RN pt okay for therapy Subjective Subjective: Pt pleasant and agreeable to PT Social/Functional History Social/Functional History Lives With: Alone Type of Home: Apartment Home Layout: One level Home Access: Stairs to enter with rails Entrance Stairs - Number of Steps: 1 Bathroom Shower/Tub: Walk-in shower Bathroom Toilet: Standard Bathroom Accessibility: Walker accessible Home Equipment: Walker, rolling,Lift chair Receives Help From: Family ADL Assistance: Independent Homemaking Assistance: Independent Homemaking Responsibilities: Yes Ambulation Assistance: Independent (FWW in home, no device in community) Transfer Assistance: Independent Vision/Hearing Hearing: Within functional limits Cognition Orientation Overall Orientation Status: Within Functional Limits Cognition Overall Cognitive Status: WFL Objective Pulse: 73 Heart Rate Source: Monitor BP: 130/60 BP Location: Left Arm Patient Position: Sitting MAP (Calculated): 83.33 Resp: 17 SpO2: 99 % O2 Device: Nasal cannula Observation/Palpation Posture: Fair Observation: 4L O2 Gross Assessment AROM: Within functional limits Strength: Within functional limits Coordination: Within functional limits Tone: Normal Sensation: Intact AROM RLE (degrees) RLE AROM: WFL AROM LLE (degrees) LLE AROM : WFL Strength RLE Strength RLE: WFL Strength LLE Strength LLE: WFL Bed mobility Supine to Sit: Stand by assistance Sit to Supine: Stand by assistance Scooting: Stand by assistance Bed Mobility Comments: Pt denies dizziness. She complete all bed mobility SBA with slight increasedtime to complete. Pt does static sit ~6 minutes for grooming tasks EOB Transfers Sit to Stand: Minimal Assistance;Contact guard assistance Stand to sit: Minimal Assistance;Contact guard assistance Comment: Pt complete functional transfer from bed x3, from toilet x1. Initial transfer to FWW requires min A, however pt progressing throughout session to CGA. THerapist cues pt for hand and foot placement, she reports she usually uses lift chair. She demo no LOB, does require increased time to complete Ambulation Surface: level tile Device: Rolling Walker Assistance: Contact guard assistance Quality of Gait: Pt ambulates with CGA and FWW. She demo short reciprocal step pattern with decreased elba, step length. She demo no LOB, does demo some SOB but SpO2 post ambulation 100% on 4L. Ptreports some lightheadedness (BP 161/70) and this resolves with sitting Gait Deviations: Slow Elba;Decreased step length Distance: ~100 ft; ~20 ft x2 Comments: Therapist cues pt for upright trunk posture and reciprocal step pattern, cues for energy conservation throughout. Therapist cues pt for safety and obstacle negotiation. Pt report she does feel weaker than baseline Stairs/Curb Stairs?: No Balance Posture: Fair Sitting - Static: Good;- Sitting - Dynamic: Fair;+ Standing - Static: Fair Standing - Dynamic: Fair;- AM-PAC Score AM-PAC Inpatient Mobility Raw Score : 19 (12/15/211033) AM-PAC Inpatient T-Scale Score : 45.44 (12/15/211033) Mobility Inpatient CMS 0-100% Score: 41.77 (12/15/211033) Mobility Inpatient CMS G-Code Modifier : CK (12/15/211033) Goals Short Term Goals Time Frame for Short term goals: 6 visits Short term goal 1: Pt will complete bed mobility Mod I to promote mobility Short term goal 2: Pt will complete functional transfer to FWW with Mod I to promote safety Short term goal 3: Pt will ambulate 100 ft with FWW and Mod I to promote mobility Short term goal 4: Pt will ascend/descend 1 stair SUP to safely enter/exit home Short term goal 5: Pt will complete 1-2 sets 5-10 reps LE exercise to promote strength Patient Goals Patient goals : Pt wants to go home Therapy Time Individual Concurrent Group Co-treatment Time In 0818 Time Out 0853 Minutes 35 Timed Code Treatment Minutes: 23 Minutes (gait x1, ta x1) Siddharth Cabello, PT * Svetlana Vaughan DTR - 12/15/2021 7:34 AM EDT Nutrition rescreen completed. Pt referred to RD for CHF. * Tiffany Moreno LPN - 12/14/2021 5:27 PM EDT Patient c/o SOB SpO2 85-87% on RA. Applied O2 at 2L via NC. Audible expiratory wheezing heard. Patient states I just don't feel good, I feel weak.. SpO2 increased to 3L and then to 4L NC, now 92% on 4L. * Ariel Solitario MD - 12/14/2021 2:55 PM EDT Progress Note 12/14/2021 2:55 PM Name: Mikel Winston IP Day: 1 Admit Date: 12/13/2021 8:26 AM PCP: KOMAL COHN DO Code Status: Full Code Subjective: Less confused. Weak. No cp, sob, cough, n/v, f/c. Tolerating diet. D/w pt Physical Examination: Vitals: BP 120/66 Pulse 79 Temp 99 F (37.2 C) (Temporal) Resp 16 Ht 5' 5 (1.651 m) Wt 200 lb (90.7 kg) SpO2 97% BMI 33.28 kg/m Temp (24hrs), Av.8 F (37.1 C), Min:97.8 F (36.6 C), Max:99.3 F (37.4 C) General appearance: alert, cooperative and no distress Mental Status: oriented to person, place and time and normal affect Lungs: coarse bs bilaterally, normal effort Heart: regular rate and rhythm, no murmur Abdomen: soft, nontender, nondistended, bowel sounds present, no masses Extremities: + edema, mild redness RLE, no tenderness in the calves Skin: no gross lesions, rashes Data: Labs: Recent Labs 12/13/21 1219 12/14/21 0341 WBC 15.1* 9.4 HGB 11.7 10.6* PLT 101* 95* Recent Labs 12/13/21 1219 12/14/21 0341 NA 141 139 K 3.7 3.6 CL 110* 111* CO2 23 21* BUN 34* 29* CREATININE 1.22 0.97 GLUCOSE 181* 157* Recent Labs 12/14/21 0341 AST 53* ALT 26 BILITOT 1.9* ALKPHOS 56 Assessment and Plan: Sepsis possible bacteremia Altered mental status RLE cellulitis HTN DM2 CAD CHF Plan: IVF, IV antibiotics, follow up cx's, POCT, SSI, follow up labs, PT/OT, discharge planning, see orders. * Tiffany Moreno LPN - 12/14/2021 11:43 AM EDT Spoke with Luisa at [facility] in [place]. Current medication list updated and notified Dr. Solitario. * Emma Sales RN - 12/13/2021 7:04 PM EDT Spoke with son Russell Winston, he is the primary decision maker for his mother. Home medications need to be verified with [facility] in [place]. He will call and get a list and bring to hospital tomorrow. He states his mother is normally Alert and oriented, but has been confused the last several days. * Emma Sales RN - 12/13/2021 6:41 PM EDT Attempted to get questions answered in the admission from Arnel Mejias, patients daughter and she said to call the son Russell. Called [phone] and no answer documented in this encounterSUMMA Work Phone: [phone] 734-942005-10-2022 Miscellaneous Notes* Telephone Encounter - Marilin Rosales LPN - 12/15/2021 9:42 AM EDT Pharmacy faxed requesting the following refill Refill(s) Requested: Pending Prescriptions Disp Refills ACCU-CHEK KENROY PLUS TEST STRIPS 100 Strip 7 Si STRIP TWICE DAILY. USE TO TEST BLOOD SUGAR TWICE A DAY ANNABELLE: Yes ALLERGIES Allergen Reactions Codeine Hives, Rash Codeine Sulfate Unknown (home) Last Office Visit Date: 11/30/2021 Last Distance Health Visit: Visit date not found Future Appointment: 03/01/2022 The patients preferred pharmacy has been captured for this encounter? yes Request is for script(s) to be escript to pharmacy. Marilin Rosales LPN documented in this encounterTrumbull [facility]04-25-2022 History of Present illness Narrative* Komal Cohn DO - 11/30/2021 1:31 PM EDT Images from the original note were not included. [facility] [place] Cohn, DO [address] [place] [address] Date of Evaluation: 11/30/2021 Patient Name: Mikel Winston : 1945 Chief Complaint: Patient presents with: Diabetes Hypertension Results: results from 09/16. Nursing Intake: There are no exam notes on file for this visit. Subjective Ms. Winston is a 76 year old female who presents with the following complaint(s): The history is provided by the patient. No manager language was used. Diabetes She presents for her follow-up diabetic visit. She has type 2 diabetes mellitus. Pertinent negatives for hypoglycemia include no dizziness, headaches or nervousness/anxiousness. Pertinent negatives for diabetes include no chest pain, no fatigue and no weakness. Hypertension This is a chronic problem. The current episode started more than 1 year ago. Pertinent negatives include no chest pain, headaches, palpitations or shortness of breath. Hypercholesterolemia This is a chronic problem. The current episode started more than 1 year ago. Pertinent negatives include no chest pain or shortness of breath. Review of Systems Constitutional: Negative for fatigue and unexpected weight change. HENT: Negative for nosebleeds. Eyes: Negative for redness and visual disturbance. Respiratory: Negative for apnea, cough and shortness of breath. Cardiovascular: Negative for chest pain, palpitations and leg swelling. Genitourinary: Negative for hematuria. Neurological: Negative for dizziness, weakness, light-headedness, numbness and headaches. Hematological: Does not bruise/bleed easily. Psychiatric/Behavioral: The patient is not nervous/anxious. PAST MEDICAL HISTORY Diagnosis Date Anemia Diabetes (HCC) Diverticulosis Dysphagia FHx: colon cancer Hemorrhoids Hepatic flexure syndrome History of colon polyps Hypertension BARRON (nonalcoholic steatohepatitis) PAST SURGICAL HISTORY Procedure Laterality Date COLONOSCOPY 05/09/2012 TUBAL LIGATION HX FAMILY HISTORY Problem Relation Age of Onset Colon Cancer Mother other (Liver disease) Mother Social History Tobacco Use Smoking status: Former Smoker Smokeless tobacco: Never Used Vaping Use Vaping Use: Never used Substance Use Topics Alcohol use: No Drug use: No Current Medications nystatin (MYCOSTATIN) powder Apply 1 application to affected area three times daily. APPLY TO AFFECTED AREA fluticasone (FLONASE) 50 mcg/actuation nasal spray SPRAY 2 SPRAYS INTO EACH NOSTRIL EVERY DAY omeprazole (PRILOSEC) 40 mg capsule TAKE 1 CAPSULE BY MOUTH EVERY DAY ferrous sulfate 325 mg (65 mg iron) tablet TAKE 1 TABLET BY MOUTH EVERY DAY ACCU-CHEK KENROY PLUS TEST STRP test strip 1 Each twice daily. ZINC ORAL Take by mouth. ascorbic acid/bioflavonoids (LISSETH C ORAL) Take by mouth. minocycline (MINOCIN, DYNACIN) 50 mg capsule TAKE 1 CAPSULE BY MOUTH EVERY DAY IN THE MORNING metFORMIN (GLUCOPHAGE) 1,000 mg tablet TAKE 1 TABLET BY MOUTH TWICE A DAY levothyroxine (SYNTHROID) 50 mcg tablet TAKE 1 TABLET BY MOUTH EVERY DAY potassium chloride SR (MICRO-K) 10 mEq CR capsule TAKE 1 CAPSULE BY MOUTH EVERY DAY NEEDED WITH LASIX furosemide (LASIX) 20 mg tablet Take 1 tablet by mouth once daily as needed. atenolol (TENORMIN) 100 mg tablet Take 1 tablet by mouth once daily. BRILINTA 90 mg tablet Take 1 tablet by mouth twice daily. losartan (COZAAR) 50 mg tablet Take 1 tablet by mouth once daily. MULTIVITAMIN ORAL Take by mouth. cholecalciferol, vitamin D3, (VITAMIN D3 ORAL) Take by mouth. aspirin 81 mg chewable tablet Take 81 mg by mouth. Vitamin E, dl, acetate, (VITAMIN E) 400 unit capsule Take 800 Units by mouth. loratadine-pseudoephedrine ER (CLARITIN-D 12 HOUR) 5-120 mg per tablet Take 1 tablet by mouth twicedaily as needed (for allergy symptoms). calcium-vitamin D3-vitamin K 650 mg-12.5 mcg-40 mcg chew Take by mouth. I have confirmed and edited as necessary the past medical, family and social histories, HPI, and ROS obtained by others. Objective BP 142/78 Pulse 67 Temp 98.3 Wt 197 lb (89.4kg) SpO2 97% Physical Exam Vitals and nursing note reviewed. Constitutional: General: She is not in acute distress. Appearance: Normal appearance. She is well-developed. She is not ill-appearing. HENT: Head: Normocephalic. Right Ear: Tympanic membrane, ear canal and external ear normal. There is no impacted cerumen. Left Ear: Tympanic membrane, ear canal and external ear normal. There is no impacted cerumen. Nose: Nose normal. Mouth/Throat: Mouth: Mucous membranes are moist. Pharynx: Oropharynx is clear. Uvula midline. No oropharyngeal exudate or posterior oropharyngeal erythema. Eyes: General: Lids are normal. Vision grossly intact. Gaze aligned appropriately. No scleral icterus. Right eye: No discharge. Left eye: No discharge. Extraocular Movements: Extraocular movements intact. Conjunctiva/sclera: Conjunctivae normal. Pupils: Pupils are equal, round, and reactive to light. Neck: Thyroid: No thyroid mass, thyromegaly or thyroid tenderness. Vascular: No carotid bruit. Trachea: Trachea and phonation normal. Cardiovascular: Rate and Rhythm: Normal rate and regular rhythm. Pulses: Normal pulses. Heart sounds: Normal heart sounds. Pulmonary: Effort: Pulmonary effort is normal. Breath sounds: Normal breath sounds. Abdominal: General: Abdomen is flat. Bowel sounds are normal. Palpations: Abdomen is soft. Musculoskeletal: General: Normal range of motion. Right shoulder: Normal. Left shoulder: Normal. Cervical back: Normal, full passive range of motion without pain and neck supple. No tenderness. Nospinous process tenderness. Thoracic back: Normal. Lumbar back: Normal. Right knee: Normal. Left knee: Normal. Right lower leg: No edema. Left lower leg: No edema. Lymphadenopathy: Cervical: No cervical adenopathy. Skin: General: Skin is warm and dry. Neurological: General: No focal deficit present. Mental Status: She is alert and oriented to person, place, and time. Mental status is at baseline. Cranial Nerves: Cranial nerves are intact. Sensory: Sensation is intact. Motor: Motor function is intact. Psychiatric: Attention and Perception: Attention and perception normal. Mood and Affect: Mood normal. Speech: Speech normal. Behavior: Behavior normal. Thought Content: Thought content normal. Judgment: Judgment normal. Data Reviewed: No new labs ASSESSMENT/PLAN: 1. Primary hypertension - ICD9: 401.9, ICD10: I10 (primary diagnosis) - suboptimal control - Continue current medication(s) - Recommended regular aerobic exercise. - Recommend home blood pressure monitoring, to bring results in on next visit - Goal of BP <130/80 2. Mixed hyperlipidemia - ICD9: 272.2, ICD10: E78.2 - good control - Continue current medication. 3. Statin intolerance - ICD9: 995.27, ICD10: Z78.9 4. Myalgias - ICD9: 729.1, ICD10: M79.10 - Due to Statins Komal Cohn DO Return in about 3 months (around 03/01/2022) for a1c. Attestation: Scribe Statement: Vicenta Ellsworth am scribing for, and in the presence of, Komal Cohn DO November 30, 2021 2:11PM. Physician Statement: I, Komal Cohn DO, personally performed the services described in the documentation, as scribed by Melanie Castro in my presence, and it is both accurate and complete November 30, 2021 2:16 PM. documented in this encounterTrumbull [facility] Hospital04-18-2022 Miscellaneous Notes* Telephone Encounter - Grace Linda LPN - 11/23/2021 9:16 AM EDT Pharmacy faxed requesting the following refill Refill(s) Requested: Pending Prescriptions Disp Refills FLUTICASONE PROPIONATE 50 MCG/ACTUATION NASAL SPRAY,SUSPENSION 48 mL 3 Sig: SPRAY 2 SPRAYS INTO EACH NOSTRIL EVERY DAY ANNABELLE: Yes ALLERGIES Allergen Reactions Codeine Hives, Rash Codeine Sulfate Unknown (home) Last Office Visit Date: 09/03/2021 Last Distance Health Visit: Visit date not found Future Appointment: 11/30/2021 The patients preferred pharmacy has been captured for this encounter? yes Request is for script(s) to be escript to pharmacy. Grace Linda LPN documented in this encounterTrumbull [facility] Hospital01-28-2022 Miscellaneous Notes* Telephone Encounter - Nanette Nelson - 09/04/2021 2:55 PM EST Confirmation number: [id number] Nanette Nelson documented in this encounterTrumbull Memorial Hospital01-28-2022 Miscellaneous Notes* Telephone Encounter - Marilin Rosales LPN - 09/04/2021 10:12 AM EST Pharmacy faxed requesting the following refill Refill(s) Requested: Pending Prescriptions Disp Refills OMEPRAZOLE 40 MG CAPSULE,DELAYED RELEASE 90 capsule 1 Sig: TAKE 1 CAPSULE BY MOUTH EVERY DAY ANNABELLE: Yes FERROUS SULFATE 325 MG (65 MG IRON) TABLET 90 tablet 1 Sig: TAKE 1 TABLET BY MOUTH EVERY DAY ANNABELLE: Yes ALLERGIES Allergen Reactions Codeine Hives, Rash Codeine Sulfate Unknown (home) Last Office Visit Date: 09/03/2021 Last Distance Health Visit: Visit date not found Future Appointment: 11/30/2021 The patients preferred pharmacy has been captured for this encounter? yes Request is for script(s) to be escript to pharmacy. Marilin Rosales LPN documented in this encounterTrumbull Memorial Hospital01-27-2022 History of Present illness Narrative* Komal Cohn, - 09/03/2021 2:23 PM EST Images from the original note were not included. [facility] [place] Komal Cohn, DO [address] [place] [address] Date of Evaluation: 09/03/2021 Patient Name: Mikel Winston : 1945 Chief Complaint: Patient presents with: Cough: x 2 weeks Diabetes Nursing Intake: There are no exam notes on file for this visit. Subjective Ms. Winston is a 76 year old female who presents with the following complaint(s): The history is provided by the patient. No manager language was used. Cough This is a new problem. The current episode started more than 1 week ago. The problem occurs every few minutes. The problem has not changed since onset.The cough is non-productive. There has been no fever. Pertinent negatives include no chest pain, no headaches, no shortness of breath and no eye redness. Diabetes She presents for her follow-up diabetic visit. She has type 2 diabetes mellitus. Pertinent negatives for hypoglycemia include no dizziness, headaches or nervousness/anxiousness. Pertinent negatives for diabetes include no chest pain, no fatigue and no weakness. Her weight is increasing steadily. Her overall blood glucose range is 130-140 mg/dl. Review of Systems Constitutional: Negative for fatigue and unexpected weight change. HENT: Positive for congestion. Negative for nosebleeds. Eyes: Negative for redness and visual disturbance. Respiratory: Positive for cough. Negative for apnea and shortness of breath. Cardiovascular: Negative for chest pain, palpitations and leg swelling. Genitourinary: Negative for hematuria. Neurological: Negative for dizziness, weakness, light-headedness, numbness and headaches. Hematological: Does not bruise/bleed easily. Psychiatric/Behavioral: The patient is not nervous/anxious. PAST MEDICAL HISTORY Diagnosis Date Anemia Diabetes (HCC) Diverticulosis Dysphagia FHx: colon cancer Hemorrhoids Hepatic flexure syndrome History of colon polyps Hypertension BARRON (nonalcoholic steatohepatitis) PAST SURGICAL HISTORY Procedure Laterality Date COLONOSCOPY 05/09/2012 TUBAL LIGATION HX FAMILY HISTORY Problem Relation Age of Onset Colon Cancer Mother other (Liver disease) Mother Social History Tobacco Use Smoking status: Former Smoker Smokeless tobacco: Never Used Vaping Use Vaping Use: Never used Substance Use Topics Alcohol use: No Drug use: No Current Medications ACCU-CHEK KENROY PLUS TEST STRP test strip 1 Each twice daily. ZINC ORAL Take by mouth. ascorbic acid/bioflavonoids (LISSETH C ORAL) Take by mouth. minocycline (MINOCIN, DYNACIN) 50 mg capsule TAKE 1 CAPSULE BY MOUTH EVERY DAY IN THE MORNING metFORMIN (GLUCOPHAGE) 1,000 mg tablet TAKE 1 TABLET BY MOUTH TWICE A DAY nystatin (MYCOSTATIN) powder APPLY TO AFFECTED AREA TWICE A DAY fluticasone (FLONASE) 50 mcg/actuation nasal spray SPRAY 2 SPRAYS INTO EACH NOSTRIL EVERY DAY omeprazole (PRILOSEC) 40 mg capsule TAKE 1 CAPSULE BY MOUTH EVERY DAY ferrous sulfate 325 mg (65 mg iron) tablet TAKE 1 TABLET BY MOUTH EVERY DAY levothyroxine (SYNTHROID) 50 mcg tablet TAKE 1 TABLET BY MOUTH EVERY DAY potassium chloride SR (MICRO-K) 10 mEq CR capsule TAKE 1 CAPSULE BY MOUTH EVERY DAY NEEDED WITH LASIX furosemide (LASIX) 20 mg tablet Take 1 tablet by mouth once daily as needed. atenolol (TENORMIN) 100 mg tablet Take 1 tablet by mouth once daily. BRILINTA 90 mg tablet Take 1 tablet by mouth twice daily. losartan (COZAAR) 50 mg tablet Take 1 tablet by mouth once daily. MULTIVITAMIN ORAL Take by mouth. cholecalciferol, vitamin D3, (VITAMIN D3 ORAL) Take by mouth. aspirin 81 mg chewable tablet Take 81 mg by mouth. Vitamin E, dl, acetate, (VITAMIN E) 400 unit capsule Take 800 Units by mouth. loratadine-pseudoephedrine ER (CLARITIN-D 12 HOUR) 5-120 mg per tablet Take 1 tablet by mouth twicedaily as needed (for allergy symptoms). calcium-vitamin D3-vitamin K 650 mg-12.5 mcg-40 mcg chew Take by mouth. I have confirmed and edited as necessary the past medical, family and social histories, HPI, and ROS obtained by others. Objective BP 144/78 Pulse 86 Temp 96.9 Ht 5' 4 (1.63m) Wt 198 lb (89.8kg) SpO2 97% BMI 33.97 kg/(m^2). Physical Exam Vitals and nursing note reviewed. Constitutional: General: She is not in acute distress. Appearance: Normal appearance. She is well-developed. She is not ill-appearing. HENT: Head: Normocephalic. Right Ear: Tympanic membrane, ear canal and external ear normal. There is no impacted cerumen. Left Ear: Tympanic membrane, ear canal and external ear normal. There is no impacted cerumen. Nose: Nose normal. Mouth/Throat: Mouth: Mucous membranes are moist. Pharynx: Oropharynx is clear. Uvula midline. No oropharyngeal exudate or posterior oropharyngeal erythema. Eyes: General: Lids are normal. Vision grossly intact. Gaze aligned appropriately. No scleral icterus. Right eye: No discharge. Left eye: No discharge. Extraocular Movements: Extraocular movements intact. Conjunctiva/sclera: Conjunctivae normal. Pupils: Pupils are equal, round, and reactive to light. Neck: Thyroid: No thyroid mass, thyromegaly or thyroid tenderness. Vascular: No carotid bruit. Trachea: Trachea and phonation normal. Cardiovascular: Rate and Rhythm: Normal rate and regular rhythm. Pulses: Normal pulses. Heart sounds: Normal heart sounds. Pulmonary: Effort: Pulmonary effort is normal. Breath sounds: Normal breath sounds. Abdominal: General: Abdomen is flat. Bowel sounds are normal. Palpations: Abdomen is soft. Musculoskeletal: General: Normal range of motion. Right shoulder: Normal. Left shoulder: Normal. Cervical back: Normal, full passive range of motion without pain and neck supple. No tenderness. Nospinous process tenderness. Thoracic back: Normal. Lumbar back: Normal. Right knee: Normal. Left knee: Normal. Right lower leg: No edema. Left lower leg: No edema. Lymphadenopathy: Cervical: No cervical adenopathy. Skin: General: Skin is warm and dry. Neurological: General: No focal deficit present. Mental Status: She is alert and oriented to person, place, and time. Mental status is at baseline. Cranial Nerves: Cranial nerves are intact. Sensory: Sensation is intact. Motor: Motor function is intact. Psychiatric: Attention and Perception: Attention and perception normal. Mood and Affect: Mood normal. Speech: Speech normal. Behavior: Behavior normal. Thought Content: Thought content normal. Judgment: Judgment normal. Data Reviewed: No new labs ASSESSMENT/PLAN: 1. Type 2 diabetes mellitus without complication, without long-term current use of insulin (HCC) - ICD9: 250.00, ICD10: E11.9 (primary diagnosis) - Control to be determined with A1C today - HGB A1C 2. Congestive heart failure, unspecified HF chronicity, unspecified heart failure type (HCC) - ICD9: 428.0, ICD10: I50.9 - Referral to Cardiology given: current social work specialist is retiring. - CONSULT TO CARDIOLOGY 3. Hyperlipidemia, mixed - ICD9: 272.2, ICD10: E78.2 - to be determined upon return of lab results. - Encouraged following a low fat, low cholesterol diet. - Discussed the benefits of regular aerobic exercise and weight loss. - CBC + DIFF - COMP METABOLIC PANEL - LIPID PANEL BASIC - URINALYSIS, WITH MICROSCOPIC 4. Primary hypertension - ICD9: 401.9, ICD10: I10 - good control - Continue current medication(s) - Recommended regular aerobic exercise. - Recommend home blood pressure monitoring, to bring results in on next visit - Goal of BP <130/80 5. Hypothyroidism, acquired - ICD9: 244.9, ICD10: E03.9 - TSH BLD Komal Cohn DO Return in about 3 months (around 12/02/2021) for a1c. Attestation: Scribe Statement: Vicenta Ellsworth am scribing for, and in the presence of, Komal Cohn DO September 03, 2021 2:39 PM. Physician Statement: IKomal DO, personally performed the services described in the documentation, as scribed by Melanie Castro in my presence, and it is both accurate and complete September 03, 2021 2:43PM. documented in this encounterTrumbull [facility] Hospital12-21-2021 Miscellaneous Notes* Telephone Encounter - Marilin Rosales LPN - 07/28/2021 8:29 AM EST Pharmacy faxed requesting the following refill Refill(s) Requested: Pending Prescriptions Disp Refills METFORMIN 1,000 MG TABLET 180 tablet 0 Sig: TAKE 1 TABLET BY MOUTH TWICE A DAY ANNABELLE: Yes ALLERGIES Allergen Reactions Codeine Hives, Rash Codeine Sulfate Unknown (home) Last Office Visit Date: 05/28/2021 Last Distance Health Visit: Visit date not found Future Appointment: 08/28/2021 The patients preferred pharmacy has been captured for this encounter? yes Request is for script(s) to be escript to pharmacy. Marilin Rosales LPN documented in this encounterTrumbull Memorial Hospital12-13-2021 Miscellaneous Notes* Telephone Encounter - Marilin Rosales LPN - 07/20/2021 8:39 AM EST Pharmacy faxed requesting the following refill Refill(s) Requested: Pending Prescriptions Disp Refills NYSTATIN 100,000 UNIT/GRAM TOPICAL POWDER 30 g 3 Sig: APPLY TO AFFECTED AREA TWICE A DAY ANNABELLE: Yes ALLERGIES Allergen Reactions Codeine Hives, Rash Codeine Sulfate Unknown (home) Last Office Visit Date: 05/28/2021 Last Distance Health Visit: Visit date not found Future Appointment: 08/28/2021 The patients preferred pharmacy has been captured for this encounter? yes Request is for script(s) to be escript to pharmacy. Marilin Rosales LPN documented in this encounterTrumbull Memorial Hospital10-21-2021 History of Present illness Narrative* Komal Cohn DO - 05/28/2021 1:42 PM EDT Images from the original note were not included. [facility] [place] Komal Cohn DO [address] [place] [address] Date of Evaluation: 05/28/2021 Patient Name: Mikel Winston : 1945 Chief Complaint: Patient presents with: Hypertension: check up Hyperlipidemia Diabetes Nursing Intake: There are no exam notes on file for this visit. Subjective Ms. Winston is a 75 year old female who presents with the following complaint(s): The history is provided by the patient. No manager language was used. Hypertension This is a chronic problem. The current episode started more than 1 year ago. Pertinent negatives include no chest pain, headaches, palpitations or shortness of breath. Diabetes She presents for her follow-up diabetic visit. She has type 2 diabetes mellitus. Her disease coursehas been stable. Pertinent negatives for hypoglycemia include no dizziness, headaches or nervousness/anxiousness. Pertinent negatives for diabetes include no chest pain, no fatigue and no weakness. Symptoms are stable. Hypercholesterolemia This is a chronic problem. The current episode started more than 1 year ago. Pertinent negatives include no chest pain or shortness of breath. Review of Systems Constitutional: Negative for fatigue and unexpected weight change. HENT: Negative for nosebleeds. Eyes: Negative for redness and visual disturbance. Respiratory: Negative for apnea, cough and shortness of breath. Cardiovascular: Negative for chest pain, palpitations and leg swelling. Genitourinary: Negative for hematuria. Neurological: Negative for dizziness, weakness, light-headedness, numbness and headaches. Hematological: Does not bruise/bleed easily. Psychiatric/Behavioral: The patient is not nervous/anxious. PAST MEDICAL HISTORY Diagnosis Date Anemia Diabetes (HCC) Diverticulosis Dysphagia FHx: colon cancer Hemorrhoids Hepatic flexure syndrome History of colon polyps Hypertension BARRON (nonalcoholic steatohepatitis) PAST SURGICAL HISTORY Procedure Laterality Date COLONOSCOPY 05/09/2012 TUBAL LIGATION HX FAMILY HISTORY Problem Relation Age of Onset Colon Cancer Mother other (Liver disease) Mother Social History Tobacco Use Smoking status: Former Smoker Smokeless tobacco: Never Used Vaping Use Vaping Use: Never used Substance Use Topics Alcohol use: No Drug use: No Current Medications fluticasone (FLONASE) 50 mcg/actuation nasal spray SPRAY 2 SPRAYS INTO EACH NOSTRIL EVERY DAY metFORMIN (GLUCOPHAGE) 1,000 mg tablet TAKE 1 TABLET BY MOUTH TWICE A DAY omeprazole (PRILOSEC) 40 mg capsule TAKE 1 CAPSULE BY MOUTH EVERY DAY ferrous sulfate 325 mg (65 mg iron) tablet TAKE 1 TABLET BY MOUTH EVERY DAY minocycline (MINOCIN, DYNACIN) 50 mg capsule TAKE 1 CAPSULE BY MOUTH EVERY DAY IN THE MORNING levothyroxine (SYNTHROID) 50 mcg tablet TAKE 1 TABLET BY MOUTH EVERY DAY potassium chloride SR (MICRO-K) 10 mEq CR capsule TAKE 1 CAPSULE BY MOUTH EVERY DAY NEEDED WITH LASIX furosemide (LASIX) 20 mg tablet Take 1 tablet by mouth once daily as needed. atenolol (TENORMIN) 100 mg tablet Take 1 tablet by mouth once daily. BRILINTA 90 mg tablet Take 1 tablet by mouth twice daily. losartan (COZAAR) 50 mg tablet Take 1 tablet by mouth once daily. ACCU-CHEK KENROY PLUS TEST STRP test strip 1 STRIP TWICE DAILY. USE INSTRUCTED MULTIVITAMIN ORAL Take by mouth. cholecalciferol, vitamin D3, (VITAMIN D3 ORAL) Take by mouth. calcium-vitamin D3-vitamin K 650 mg-12.5 mcg-40 mcg chew Take by mouth. nystatin (MYCOSTATIN) powder Apply to affected area twice daily. APPLY TO AFFECTED AREA aspirin 81 mg chewable tablet Take 81 mg by mouth. Vitamin E, dl, acetate, (VITAMIN E) 400 unit capsule Take 800 Units by mouth. I have confirmed and edited as necessary the past medical, family and social histories, HPI, and ROS obtained by others. Objective BP 130/72 Pulse 78 Temp 98.4 Ht 5' 4 (1.63m) Wt 200 lb (90.7kg) SpO2 98% BMI 34.31 kg/(m^2). Physical Exam Vitals and nursing note reviewed. Constitutional: General: She is not in acute distress. Appearance: Normal appearance. She is well-developed. She is not ill-appearing. HENT: Head: Normocephalic. Right Ear: Tympanic membrane, ear canal and external ear normal. There is no impacted cerumen. Left Ear: Tympanic membrane, ear canal and external ear normal. There is no impacted cerumen. Nose: Nose normal. Mouth/Throat: Mouth: Mucous membranes are moist. Pharynx: Oropharynx is clear. Uvula midline. No oropharyngeal exudate or posterior oropharyngeal erythema. Eyes: General: Lids are normal. Vision grossly intact. Gaze aligned appropriately. No scleral icterus. Right eye: No discharge. Left eye: No discharge. Extraocular Movements: Extraocular movements intact. Conjunctiva/sclera: Conjunctivae normal. Pupils: Pupils are equal, round, and reactive to light. Neck: Thyroid: No thyroid mass, thyromegaly or thyroid tenderness. Vascular: No carotid bruit. Trachea: Trachea and phonation normal. Cardiovascular: Rate and Rhythm: Normal rate and regular rhythm. Pulses: Normal pulses. Heart sounds: Normal heart sounds. Pulmonary: Effort: Pulmonary effort is normal. Breath sounds: Normal breath sounds. Abdominal: General: Abdomen is flat. Bowel sounds are normal. Palpations: Abdomen is soft. Musculoskeletal: General: Normal range of motion. Right shoulder: Normal. Left shoulder: Normal. Cervical back: Normal, full passive range of motion without pain and neck supple. No tenderness. Nospinous process tenderness. Thoracic back: Normal. Lumbar back: Normal. Right knee: Normal. Left knee: Normal. Right lower leg: No edema. Left lower leg: No edema. Lymphadenopathy: Cervical: No cervical adenopathy. Skin: General: Skin is warm and dry. Neurological: General: No focal deficit present. Mental Status: She is alert and oriented to person, place, and time. Mental status is at baseline. Cranial Nerves: Cranial nerves are intact. Sensory: Sensation is intact. Motor: Motor function is intact. Psychiatric: Attention and Perception: Attention and perception normal. Mood and Affect: Mood normal. Speech: Speech normal. Behavior: Behavior normal. Thought Content: Thought content normal. Judgment: Judgment normal. Data Reviewed: No new labs ASSESSMENT/PLAN: 1. Primary hypertension - ICD9: 401.9, ICD10: I10 (primary diagnosis) - good control - Continue current medication(s) - Recommended regular aerobic exercise. - Recommend home blood pressure monitoring, to bring results in on next visit - Goal of BP <130/80 2. Hyperlipidemia, mixed - ICD9: 272.2, ICD10: E78.2 - Encouraged following a low fat, low cholesterol diet. - Discussed the benefits of regular aerobic exercise and weight loss. 3. Type 2 diabetes mellitus without complication, without long-term current use of insulin (HCC) - ICD9: 250.00, ICD10: E11.9 Controlled. - Continue current medications Return in about 3 months (around 08/28/2021). Komal Cohn DO Attestation: Scribe Statement: Vicenta Ellsworth am scribing for, and in the presence of, Komal Cohn DO May 28, 2021 2:04 PM. Physician Statement: I, Komal Cohn DO, personally performed the services described in the documentation, as scribed by Melanie Castro in my presence, and it is both accurate and complete May 28, 2021 2:06PM. documented in [facility] Miscellaneous Notes* Telephone Encounter - Jade Driscoll LPN - 03/23/2021 11:26 AM EDT Pharmacy faxed requesting the following refill Refill(s) Requested: Pending Prescriptions Disp Refills LEVOTHYROXINE 50 MCG TABLET 90 tablet 1 Sig: TAKE 1 TABLET BY MOUTH EVERY DAY ANNABELLE: Yes ALLERGIES Allergen Reactions Codeine Hives, Rash Codeine Sulfate Unknown (home) Last Office Visit Date: 02/25/2021 Last Distance Health Visit: Visit date not found Future Appointment: 05/28/2021 The patients preferred pharmacy has been captured for this encounter? yes Request is for script(s) to be escript to pharmacy. Jade Driscoll LPN documented in this encounterTr[facility]07-21-2021 Miscellaneous Notes* Telephone Encounter - Alia De La Paz LPN - 02/25/2021 2:14 PM EDT Pharmacy needs diagnoses code on script. Pended. documented in this encounterTr[facility]ull [facility]07-19-2021 Miscellaneous Notes* Telephone Encounter - Marilin Rosales LPN - 02/23/2021 8:23 AM EDT Pharmacy faxed requesting the following refill Refill(s) Requested: Pending Prescriptions Disp Refills METFORMIN 1,000 MG TABLET 180 tablet 0 Sig: TAKE 1 TABLET BY MOUTH TWICE A DAY ANNABELLE: Yes ALLERGIES Allergen Reactions Codeine Hives, Rash Codeine Sulfate Unknown (home) Last Office Visit Date: 11/26/2020 Last Distance Health Visit: Visit date not found Future Appointment: 02/25/2021 The patients preferred pharmacy has been captured for this encounter? yes Request is for script(s) to be escript to pharmacy. Marilin Rosales LPN documented in this encounterTrumbull [facility]04-21-2021 History of Present illness Narrative* Komal Cohn - 11/26/2020 11:43 AM EDT Images from the original note were not included. [facility] [place] [employer] [address] [place] [address] Date of Evaluation: 11/26/2020 Patient Name: Mikel Winston : 1945 Subjective Ms. Winston is a 75 year old female who presents for Diabetes, Hypertension, Hyperlipidemia, and RxRefills. The history is provided by the patient. No manager language was used. Hypertension This is a chronic problem. The current episode started more than 1 year ago. Pertinent negatives include no blurred vision, chest pain, headaches, malaise/fatigue, orthopnea, palpitations, PND or shortness of breath. Allergies This is a chronic problem. The current episode started more than 1 year ago. Pertinent negatives include no abdominal pain, chest pain, coughing, headaches, myalgias or weakness. Review of Systems Constitutional: Negative for malaise/fatigue and weight loss. HENT: Negative for nosebleeds. Eyes: Negative for blurred vision and double vision. Respiratory: Negative for cough and shortness of breath. Cardiovascular: Negative for chest pain, palpitations, orthopnea, claudication, leg swelling and PND. Gastrointestinal: Negative for abdominal pain. Genitourinary: Negative for hematuria. Musculoskeletal: Negative for joint pain and myalgias. Skin: Negative. Neurological: Negative for dizziness, tingling, sensory change, focal weakness, weakness and headaches. Endo/Heme/Allergies: Does not bruise/bleed easily. Psychiatric/Behavioral: Negative for depression. The patient is not nervous/anxious and does not have insomnia. PAST MEDICAL HISTORY Diagnosis Date Anemia Diabetes (HCC) Diverticulosis Dysphagia FHx: colon cancer Hemorrhoids Hepatic flexure syndrome History of colon polyps Hypertension BARRON (nonalcoholic steatohepatitis) PAST SURGICAL HISTORY Procedure Laterality Date COLONOSCOPY 05/09/2012 TUBAL LIGATION HX FAMILY HISTORY Problem Relation Age of Onset Colon Cancer Mother other (Liver disease) Mother Social History Tobacco Use Smoking status: Former Smoker Smokeless tobacco: Never Used Vaping Use Vaping Use: Never used Substance Use Topics Alcohol use: No Drug use: No Current Meds nystatin (MYCOSTATIN) powder Apply 1 application to affected area twice daily. fluticasone (FLONASE) 50 mcg/actuation nasal spray Use 2 Sprays in each nostril once daily. ACCU-CHEK KENROY PLUS TEST STRP test strip 1 Strip twice daily. USE TO TEST BLOOD SUGAR TWICE A DAY metFORMIN (GLUCOPHAGE) 1,000 mg tablet TAKE 1 TABLET BY MOUTH TWICE A DAY ferrous sulfate 325 mg (65 mg iron) tablet TAKE 1 TABLET BY MOUTH EVERY DAY omeprazole (PRILOSEC) 40 mg capsule TAKE 1 CAPSULE BY MOUTH EVERY DAY levothyroxine (SYNTHROID) 50 mcg tablet TAKE 1 TABLET BY MOUTH EVERY DAY minocycline (MINOCIN, DYNACIN) 50 mg capsule TAKE 1 CAPSULE BY MOUTH EVERY DAY IN THE MORNING BRILINTA 90 mg tablet Take 90 mg by mouth twice daily. potassium chloride SR (MICRO-K) 10 mEq CR capsule TAKE 1 CAPSULE BY MOUTH EVERY DAY NEEDED WITH LASIX losartan (COZAAR) 50 mg tablet Take 50 mg by mouth once daily. furosemide (LASIX) 20 mg tablet Take 20 mg by mouth once daily as needed. atenolol (TENORMIN) 100 mg tablet atenolol 100 mg tablet aspirin 81 mg chewable tablet Take 81 mg by mouth. Vitamin E, dl, acetate, (VITAMIN E) 400 unit capsule Take 800 Units by mouth. Objective BP 130/50 (BP Site: Right Arm) Pulse 70 Temp (!) 35.7 C (96.2 F) Ht 5' 4 (1.626 m) Wt 199 lb (90.3 kg) SpO2 97% BMI 34.16 kg/m Physical Exam Vitals and nursing note reviewed. HENT: Head: Normocephalic and atraumatic. Right Ear: Tympanic membrane, ear canal and external ear normal. Left Ear: Tympanic membrane, ear canal and external ear normal. Nose: Nose normal. Eyes: General: Lids are normal. Conjunctiva/sclera: Conjunctivae normal. Pupils: Pupils are equal, round, and reactive to light. Cardiovascular: Rate and Rhythm: Normal rate and regular rhythm. Heart sounds: Normal heart sounds. Pulmonary: Effort: Pulmonary effort is normal. Breath sounds: Normal breath sounds. Abdominal: General: Bowel sounds are normal. Palpations: Abdomen is soft. Tenderness: There is no abdominal tenderness. Musculoskeletal: General: Normal range of motion. Cervical back: Normal range of motion and neck supple. Skin: General: Skin is warm and dry. Neurological: Mental Status: She is alert and oriented to person, place, and time. Gait: Gait is intact. Deep Tendon Reflexes: Reflexes are normal and symmetric. Psychiatric: Mood and Affect: Mood and affect normal. Cognition and Memory: Memory normal. Judgment: Judgment normal. Data Reviewed: No new labs ASSESSMENT/PLAN: 1. Essential hypertension - ICD9: 401.9, ICD10: I10 (primary diagnosis) - good control - Continue current medication(s) - Recommended regular aerobic exercise. - Recommend home blood pressure monitoring, to bring results in on next visit - Goal of BP <130/80 2. Type 2 diabetes mellitus without complication, without long-term current use of insulin (HCC) - ICD9: 250.00, ICD10: E11.9 - Control to be determined by A1C - Continue current medications - Blood glucose monitoring on a once a day schedule - ACCU-CHEK KENROY PLUS TEST STRIPS - HGB A1C 3. Seasonal allergies - ICD9: 477.9, ICD10: J30.2 - Continue Flonase daily - FLUTICASONE PROPIONATE 50 MCG/ACTUATION NASAL SPRAY,SUSPENSION Return in about 3 months (around 02/25/2021) for diabetic follow-up. Attestation: Scribe Statement: Vicenta Ellsworth am scribing for, and in the presence of, Komal Cohn DO November 26, 2020 11:46 AM. I have confirmed and edited as necessary the past medical, family and social histories, HPI, and ROS obtained by others. documented in this encounterTr[facility]04-20-2021 Miscellaneous Notes* Telephone Encounter - Jade Driscoll (Denis)DENIS - 11/25/2020 8:52 AM EDT Pharmacy called requesting the following refill Refill(s) Requested: Pending Prescriptions Disp Refills METFORMIN 1,000 MG TABLET 180 tablet 0 Sig: TAKE 1 TABLET BY MOUTH TWICE A DAY ANNABELLE: Yes ALLERGIES Allergen Reactions Codeine Hives, Rash Codeine Sulfate Unknown (home) Last Office Visit Date: 08/28/2020 Last Distance Health Visit: Visit date not found Future Appointment: 11/26/2020 The patients preferred pharmacy has been captured for this encounter? yes Request is for script(s) to be escript to pharmacy. Jade Driscoll LPN documented in this encounterTr[facility]01-18-2020 Hospital Discharge instructions* Instructions* Melanie Padilla PA-C - 08/25/2019 Call your doctor tomorrow or Tuesday to schedule a very close follow-up appointment to have repeat neurological exam and wound evaluations (right eye and left knee). Use incentive spirometer to help prevent pneumonia. Ice the eye, knee, and painful areas. Return to the ED sooner for any new or worsening symptoms. * Attachments The following attachments cannot be sent through Care Everywhere. * Head Injury: Closed: General Info (Czech) * Rib Contusion (Czech) * Black Eye (Czech) * Incentive Spirometer: General Info (Czech) documented in this encounterSUMMA Work Phone: Evaluation note* Diagnosis Essential hypertension- Primary Unspecified essential hypertension Type 2 diabetes mellitus without complication, without long-term current use of insulin ([facility]) Seasonal allergies Allergic rhinitis, cause unspecified documented in this encounter [facility] note* Diagnosis Type 2 diabetes mellitus without complication, without long-term current use of insulin ([facility])- Primary documented in this encounter [facility] note* Diagnosis Primary hypertension- Primary Unspecified essential hypertension Type 2 diabetes mellitus without complication, without long-term current use of insulin ([facility]) Generalized edema Edema Hypokalemia Hypopotassemia documented in this encounter [facility] note* Diagnosis Primary hypertension- Primary Unspecified essential hypertension Hyperlipidemia, mixed Mixed hyperlipidemia Type 2 diabetes mellitus without complication, without long-term current use of insulin ([facility]) documented in this encounter [facility] note* Diagnosis Type 2 diabetes mellitus without complication, without long-term current use of insulin (HCC)- Primary Congestive heart failure, unspecified HF chronicity, unspecified heart failure type (HCC) Hyperlipidemia, mixed Mixed hyperlipidemia Primary hypertension Unspecified essential hypertension Hypothyroidism, acquired Unspecified hypothyroidism documented [facility] encounter [facility]* Diagnosis Fall, initial encounter- Primary Closed head injury, initial encounter Bilateral contusion of ribs Strain of right shoulder, initial encounter Contusion of left knee, initial encounter Traumatic hematoma of right eyelid, initial encounter documented in this encounter [facility] Work Phone: Evaluation note* Diagnosis Gastro-esophageal reflux disease with esophagitis, without bleeding Abnormal level of blood mineral Other abnormal blood chemistry [facility]* Diagnosis Other seasonal allergic rhinitis [facility]* Diagnosis Primary hypertension- Primary Unspecified essential hypertension Mixed hyperlipidemia Statin intolerance Other drug allergy Myalgias documented [facility]* Diagnosis Type 2 diabetes mellitus without complications (HCC) Type II or unspecified type diabetes mellitus without mention of complication, not stated as uncontrolled documented [facility] this encounter [facility]* Diagnosis Altered mental status, unspecified altered mental status type- Primary Urinary tract infection without hematuria, site unspecified Acute cystitis without hematuria Acute cystitis documented in this encounter [employer] Work Phone: Evaluation note* Diagnosis Generalized edema Edema Primary hypertension Unspecified essential hypertension documented [facility] this encounter [facility]* Diagnosis Anemia, unspecified type- Primary [facility]* Diagnosis Gastro-esophageal reflux disease with esophagitis, without bleeding Hypokalemia Hypopotassemia Primary hypertension Unspecified essential hypertension [facility] Diagnosis Abnormal level of blood mineral Other abnormal blood chemistry [facility]* Diagnosis Hypokalemia- Primary Hypopotassemia documented [facility] this [facility]* Diagnosis CKD (chronic kidney disease) stage 1, GFR 90 ml/min or greater- Primary Chronic kidney disease, Stage I documented [facility] this encounter [facility]* Diagnosis Primary hypertension- Primary Unspecified essential hypertension Hyperlipidemia, mixed Mixed hyperlipidemia Bilateral leg edema Edema Type 2 diabetes mellitus without complication, without long-term current use of insulin (HCC) [facility]* Diagnosis BARRY (acute kidney injury) (HCC)- Primary Acute kidney failure, unspecified documented in this encounter [facility] note* Diagnosis Diabetes ([facility]) Type II or unspecified type diabetes mellitus without mention of complication, not stated as uncontrolled Hypothyroidism, acquired Unspecified hypothyroidism documented in this encounter [facility] note* Diagnosis Gastro-esophageal reflux disease with esophagitis, without bleeding documented in this encounter [facility] note* Diagnosis Primary hypertension- Primary Unspecified essential hypertension Hyperlipidemia, mixed Mixed hyperlipidemia Bilateral leg edema Edema Hypothyroidism, acquired Unspecified hypothyroidism Acute non-recurrent maxillary sinusitis documented in this encounter [facility] note* Diagnosis Abnormal level of blood mineral Other abnormal blood chemistry documented in this encounter [facility] note* Diagnosis Type 2 diabetes mellitus without complication, without long-term current use of insulin (HCC)- Primary documented in this encounter [facility] note* Diagnosis BARRY (acute kidney injury) (CMS/HCC) (HCC)- Primary BARRY (acute kidney injury) ([facility]/HCC) (HCC) Cystitis Unspecified cystitis UTI (urinary tract infection) Urinary tract infection, site not specified documented in this encounter [facility] note* Diagnosis Bilateral leg edema Edema Hypokalemia Hypopotassemia 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) Primary hypertension Unspecified essential hypertension documented in this encounter [facility] note* Diagnosis Nonrheumatic aortic valve stenosis documented in this encounter [facility] note* Diagnosis Primary hypertension Unspecified essential hypertension Other seasonal allergic rhinitis 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) Bilateral leg edema Edema Hypokalemia Hypopotassemia documented in this encounter [facility] note* Diagnosis Gastro-esophageal reflux disease with esophagitis, without bleeding Abnormal level of blood mineral Other abnormal blood chemistry documented in this encounter [facility] note* Diagnosis Other specified soft tissue disorders documented in this encounter [facility] note* Diagnosis Urinary frequency- Primary Right leg swelling Swelling of limb Cellulitis of skin Cellulitis and abscess of unspecified site Bilateral leg edema Edema Class 1 obesity with body mass index (BMI) of 33.0 to 33.9 in adult, unspecified obesity type, unspecified whether serious comorbidity present documented in this encounter [facility] note* Diagnosis Bilateral leg edema- Primary Edema Cellulitis of skin Cellulitis and abscess of unspecified site Class 1 obesity with body mass index (BMI) of 33.0 to 33.9 in adult, unspecified obesity type, unspecified whether serious comorbidity present documented in this encounter [facility] note* Diagnosis Nonrheumatic aortic valve stenosis- Primary documented in this encounter [facility] note* Diagnosis Other specified soft tissue disorders- Primary Other specified soft tissue disorders documented in this encounter [facility] note* Diagnosis Bilateral leg edema Edema documented in this encounter [facility] note* Diagnosis 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) documented in this encounter [facility] note* Diagnosis Coronary artery disease involving coronary bypass graft of [place] heart without angina pectoris documented in this encounter [facility] note* Diagnosis Dysuria- Primary Acute UTI Urinary tract infection, site not specified Chronic kidney disease, stage 3b (HCC) Bilateral leg edema Edema Other depression documented in this encounter [facility] note* Diagnosis Chronic kidney disease, stage 4 (severe) (HCC) documented in this encounter [facility] note* Diagnosis Cellulitis of right lower extremity- Primary Cellulitis of right lower extremity Acute cystitis without hematuria documented in this encounter [facility] note* Diagnosis Primary hypertension- Primary Unspecified essential hypertension Cellulitis of right lower extremity Cellulitis and abscess of leg, except foot Acute cystitis without hematuria Acute cystitis Class 1 obesity with body mass index (BMI) of 34.0 to 34.9 in adult, unspecified obesity type, unspecified whether serious comorbidity present documented in this encounter [facility] note* Diagnosis Nonrheumatic aortic valve stenosis- Primary Coronary artery disease involving coronary bypass graft of [place] heart without angina pectoris documented in this encounter [facility] note* Diagnosis Cellulitis of left lower leg- Primary Cellulitis and abscess of leg, except foot documented in this encounter [facility] note* Diagnosis Nonrheumatic aortic valve stenosis- Primary Acute renal failure superimposed on stage 4 chronic kidney disease, unspecified acute renal failure type (HCC) documented in this encounter [facility] note* Diagnosis Osteoarthritis, unspecified osteoarthritis type, unspecified site- Primary documented in this encounter [facility] note* Diagnosis Other depression Cellulitis of left lower leg Cellulitis and abscess of leg, except foot documented in this encounter [facility] note* Diagnosis Chronic kidney disease, stage 4 (severe) ([facility])- Primary Chronic kidney disease, stage 4 (severe) (HCC) documented in this encounter [facility] note* Diagnosis Coronary artery disease involving coronary bypass graft of [place] heart without angina pectoris Nonrheumatic aortic valve stenosis documented in this encounter [facility] note* Diagnosis Chronic kidney disease, stage 4 (severe) (HCC) documented in this encounter [facility] note* Diagnosis Primary hypertension- Primary Unspecified essential hypertension Type 2 diabetes mellitus with stage 4 chronic kidney disease, without long-term current use of insulin ([facility]) CKD (chronic kidney disease) stage 4, GFR 15-29 ml/min ([facility]) Chronic kidney disease, Stage IV (severe) Cellulitis of left lower leg Cellulitis and abscess of leg, except foot Class 1 obesity with body mass index (BMI) of 33.0 to 33.9 in adult, unspecified obesity type, unspecified whether serious comorbidity present Bilateral leg edema Edema Systolic murmur Undiagnosed cardiac murmurs Other depression documented in this encounter [facility] note* Diagnosis BARRY (acute kidney injury) ([facility])- Primary Encounter for adjustment or management of cardiac device documented in this encounter [facility] note* Diagnosis Symptomatic sinus bradycardia- Primary Symptomatic sinus bradycardia Elevated troponin Other abnormal blood chemistry Elevated brain natriuretic peptide (BNP) level Second degree AV block Other second degree atrioventricular block Symptomatic sinus bradycardia Encounter for adjustment or management of cardiac device documented in this encounter [facility] note* Diagnosis Primary hypertension- Primary Unspecified essential hypertension Systolic murmur Undiagnosed cardiac murmurs Symptomatic sinus bradycardia Other specified cardiac dysrhythmias CKD (chronic kidney disease) stage 4, GFR 15-29 ml/min ([facility]) Chronic kidney disease, Stage IV (severe) Class 1 obesity with body mass index (BMI) of 32.0 to 32.9 in adult, unspecified obesity type, unspecified whether serious comorbidity present documented in this encounter [facility] note* Diagnosis Acute cystitis with hematuria- Primary Altered mental status, unspecified altered mental status type Acute cystitis with hematuria Encounter for adjustment or management of cardiac device documented in this encounter [facility] note* Diagnosis Chronic kidney disease, stage 4 (severe) ([facility])- Primary Chronic kidney disease, stage 4 (severe) (HCC) Chronic kidney disease, stage 4 (severe) (HCC) Encounter for adjustment or management of cardiac device [facility] Diagnosis Nonrheumatic aortic valve stenosis- Primary [facility] Diagnosis Coronary artery disease involving coronary bypass graft of [place] heart without angina pectoris Essential hypertension Unspecified essential hypertension Encounter for adjustment or management of cardiac device [facility] noteNo assessment information availableWAultman Orr[facility] Work Phone: Evaluation note* Diagnosis Second degree heart block- Primary Other second degree atrioventricular block Essential hypertension Unspecified essential hypertension Cardiac pacemaker in situ Encounter for adjustment or management of cardiac device documented in this encounter [facility] for referral (narrative)* Diagnostic Procedure Only (Routine) - Pending Review Specialty Diagnoses / Procedures Referred By Jen islas Referred To Contact US IMAGING Diagnoses BARRY (acute kidney injury) ([facility]) Procedures US KIDNEY/BLADDER US RETROPERITONEAL REAL TIME W/IMAGE COMPLETE Komal Cohn DO [address] [place] [address] Us Imaging Referral ID Status Reason Start Date Expiration Date Visits Requested Visits Authorized [id number] Pending Review Auto-Generat ed Referral 05/03/2022 06/02/2023 1 1 [facility] for referral (narrative)* Diagnostic Procedure Only (Urgent) - Authorized Specialty Diagnoses / Procedures Referred By Contac t Referred To Contact US IMAGING Diagnoses Right leg swelling Procedures US DVT LOWER RIGHT DUP-SCAN XTR VEINS UNILATERAL/LIMITED STUDY Komal Cohn DO [address] [place] [address] Us Imaging Referral ID Status Reason Start Date Expiration Date Visits Requested Visits Authorized [id number] Authorized Auto-Generat ed Referral 03/07/2023 04/05/2024 1 1 [facility] for referral (narrative)* Diagnostic Procedure Only (Routine) - Pending Review Specialty Diagnoses / Procedures Referred By Contac t Referred To Contact US IMAGING Diagnoses CKD (chronic kidney disease) stage 4, GFR 15-29 ml/min (HCC) Procedures US KIDNEY/BLADDER US RETROPERITONEAL REAL TIME W/IMAGE COMPLETE [place] [address] [place] [id number] Referral ID Status Reason Start Date Expiration Date Visits Requested Visits Authorized [id number] Pending Review Auto-Generat ed Referral 01/06/2024 02/04/2025 1 1 * Consult, Test, Treat (Routine) - Authorized Specialty Diagnoses / Procedures Referred By Contac t Referred To Contact Nephrology Diagnoses CKD (chronic kidney disease) stage 4, GFR 15-29 ml/min (HCC) Procedures CONSULT TO NEPHROLOGY OFFICE/OUTPATIENT [facility] 60 MINUTES Komal Cohn, [place] [address] Referral ID Status Reason Start Date Expiration Date Visits Requested Visits Authorized [id number] Authorized PCP Requested Referral 01/06/2024 01/05/2025 1 1 * Consult, Test, Treat (Routine) - Authorized Specialty Diagnoses / Procedures Referred By Contac t Referred To Contact Ophthalmology Diagnoses Screening for diabetic retinopathy Procedures CONSULT TO OPHTHALMOLOGY OFFICE/OUTPATIENT [facility] 60 MINUTES Komal Cohn, [place] [address] Referral ID Status Reason Start Date Expiration Date Visits Requested Visits Authorized [id number] Authorized PCP Requested Referral 01/06/2024 01/05/2025 1 [facility]No reason for referral information availableWAultman Orr[facility] Work Phone: Assessments Diagnosis Acute embolism and thrombosis of other specified deep vein of right lower extremity (HCC) Diagnosis Bilateral leg edema- Primary Edema Diagnosis Gastro-esophageal reflux disease with esophagitis, without bleeding Advance Directives No Advanced Directives Records FoundDocuments on File Type Date Recorded Patient Rehab Assistant Expl anation ACP-Advance Directive ACP-Power of Chinese Teacher Latest Code Status on File Code Status Date Activated Date Inactivated Comments Full Code 12/27/2017 3:56 PM 12/30/2017 2:31 PM Full Code 12/27/2017 8:17 AM 12/27/2017 3:56 PM Full Code 12/26/2017 1:59 PM 12/27/2017 8:17 AM Documents on File Type Date Recorded Patient Rehab Assistant Expl anation Advance Directives and Living Will Power of Chinese Teacher Latest Code Status on File Code Status Date Activated Date Inactivated Comments Full Code 12/13/2021 6:07 PM Full Code 12/27/2017 3:56 PM 12/30/2017 2:31 PM Healthcare Agents on File Name Relationship Healthcare Agent Relationshi p Communication [facility] Primary Decision Maker Latest Code Status on File Code Status Date Activated Date Inactivated Comments Full Code 11/18/2022 1:16 AM 11/19/2022 4:35 PM Latest Code Status on File Code Status Date Activated Date Inactivated Comments Full Code 11/18/2022 1:16 AM 11/19/2022 4:35 PM Date Activated Date Inactivated Comments 11/18/2022 1:16 AM 11/19/2022 4:35 PM Date Activated Date Inactivated Comments 01/29/2024 12:43 PM 02/02/2024 5:16 PM Question Answer Comments ICU transfer: Yes Intubation: No Date Activated Date Inactivated Comments 01/28/2024 7:42 PM 01/29/2024 12:43 PM Date Activated Date Inactivated Comments 11/18/2022 1:16 AM 11/19/2022 4:35 PM Date Activated Date Inactivated Comments 01/29/2024 12:43 PM 02/02/2024 5:16 PM Question Answer Comments ICU transfer: Yes Intubation: No Date Activated Date Inactivated Comments 01/28/2024 7:42 PM 01/29/2024 12:43 PM Date Activated Date Inactivated Comments 11/18/2022 1:16 AM 11/19/2022 4:35 PM Date Activated Date Inactivated Comments 05/30/2024 12:54 AM 06/01/2024 6:27 PM Date Activated Date Inactivated Comments 01/29/2024 12:43 PM 02/02/2024 5:16 PM Question Answer Comments ICU transfer: Yes Intubation: No Date Activated Date Inactivated Comments 01/28/2024 7:42 PM 01/29/2024 12:43 PM Date Activated Date Inactivated Comments 11/18/2022 1:16 AM 11/19/2022 4:35 PM Date Activated Date Inactivated Comments 06/26/2024 5:16 AM 07/04/2024 2:54 PM Question Answer Comments ICU transfer: No Date Activated Date Inactivated Comments 06/25/2024 9:47 PM 06/26/2024 5:16 AM Date Activated Date Inactivated Comments 05/30/2024 12:54 AM 06/01/2024 6:27 PM Date Activated Date Inactivated Comments 01/29/2024 12:43 PM 02/02/2024 5:16 PM Question Answer Comments ICU transfer: Yes Intubation: No Date Activated Date Inactivated Comments 01/28/2024 7:42 PM 01/29/2024 12:43 PM Date Activated Date Inactivated Comments 06/26/2024 5:16 AM 07/04/2024 2:54 PM Question Answer Comments ICU transfer: No Date Activated Date Inactivated Comments 06/25/2024 9:47 PM 06/26/2024 5:16 AM Date Activated Date Inactivated Comments 05/30/2024 12:54 AM 06/01/2024 6:27 PM Date Activated Date Inactivated Comments 01/29/2024 12:43 PM 02/02/2024 5:16 PM Question Answer Comments ICU transfer: Yes Intubation: No Date Activated Date Inactivated Comments 01/28/2024 7:42 PM 01/29/2024 12:43 PM Reason for Referral Specialty Diagnoses / Procedures Referred By Contac t Referred To Contact Cardiology Diagnoses Congestive heart failure, unspecified HF chronicity, unspecified heart failure type (HCC) Procedures CONSULT TO CARDIOLOGY OFFICE/OUTPATIENT [facility] 60-74 MINUTES Komal Cohn DO [address] [place] [address] Referral ID Status Reason Start Date Expiration Date Visits Requested Visits Authorized [id number] Pending Review PCP Requested Referral 09/03/2021 09/03/2022 1 1 Specialty Diagnoses / Procedures Referred By Contac t Referred To Contact Cardiology Diagnoses Nonrheumatic aortic valve stenosis Procedures Transthoracic echocardiogram (TTE) complete with contrast, bubble, strain, and 3D PRN KS ECHO TTHRC R-T 2D W/WOM-MODE COMPL SPEC&COLR D KS TTE W OR WO AKIN FARIASDOPPLER Charley Parker, MACHINE TESTER - CARDIOVASCULAR DISEASE SPECIALIST [address], [address] [place] [address] Referral ID Status Reason Start Date Expiration Date V isits Requested Visits Authorized [id number] Closed Perform Procedure 10/19/2022 01/16/2023 1 1 Specialty Diagnoses / Procedures Referred By Contac t Referred To Contact Cardiology Diagnoses Other specified soft tissue disorders Procedures Vascular US lower extremity venous duplex [address] [address] Referral ID Status Reason Start Date Expiration Date V isits Requested Visits Authorized [id number] Closed Perform Procedure 03/07/2023 09/03/2023 1 1 Specialty Diagnoses / Procedures Referred By Contac t Referred To Contact Terence Gonzalez MD [address] [place] [address] Referral ID Status Reason Start Date Expiration Date V isits Requested Visits Authorized [id number] Pending Review 02/02/2024 07/31/2024 1 1 Specialty Diagnoses / Procedures Referred By Contac t Referred To Contact Cardiology Diagnoses Coronary artery disease involving coronary bypass graft of [place] heart without angina pectoris Nonrheumatic aortic valve stenosis Procedures Transthoracic echocardiogram (TTE) complete with contrast, bubble, strain, and 3D PRN KS ECHO TTHRC R-T 2D W/WOM-MODE COMPL SPEC&COLR D [place] TTE W OR WO QUINTON JAMES Roger B, MD [address] [place] [address] Referral ID Status Reason Start Date Expiration Date V isits Requested Visits Authorized [id number] Pending Review 03/14/2024 03/14/2025 1 1 Referral ID Status Reason Start Date Expiration Date Visits Re quested Visits Authorized [id number] Closed 03/15/2024 06/12/2024 1 1 Specialty Diagnoses / Procedures Referred By Jen t Referred To Contact Cardiology Diagnoses Chronic kidney disease, stage 4 (severe) (HCC) Procedures Vascular US renal artery duplex complete Le Dobson, MACHINE TESTER - CARDIOVASCULAR DISEASE SPECIALIST [address] [place] [address] Referral ID Status Reason Start Date Expiration Date Visits Re quested Visits Authorized [id number] Closed 04/06/2024 04/06/2025 1 1 Specialty Diagnoses / Procedures Referred By Jen t Referred To Contact Diagnoses Type 2 diabetes mellitus without complication, without long-term current use of insulin ([facility]) [place] [phone] Referral ID Status Reason Start Date Expiration Date Visits Re quested Visits Authorized [id number] Denied 04/27/2024 06/26/2024 1 1 Referral ID Status Reason Start Date Expiration Date Visits Requested Visits Authorized [id number] Pending Review Perform Procedure 09/30/2022 03/29/2023 1 1 Summary Purpose Family History No Family History Records FoundNo Family History Records FoundNo Family History Records FoundNo Family History Records FoundNo Family History Records FoundNo Family History Records Found Chief Complaint and Reason for Visit Chief Complaint Admit Date LAB WORK July 11, 2024 5 :35am [facility] LAB WORK July 17 5:00am LABWORK July 18, 2024 5:00am LAB WORK July 19, 2024 5:00am [facility] LAB WORK July 20 5:00am [facility] LAB WORK July 25 4:00am [facility] LAB WORK August 02 4:00am LABWORK August 03, 2024 5:00am [facility] LAB WORK August 07 5:00am [facility] LAB WORK September 25 4:00am [facility] LAB WORK October 05 5:00am [facility] LAB WORK October 15, 2024 5 :00am Chief Complaint Admit Date [facility] LAB WORK July 17 5:00am LABWORK July 18, 2024 5:00am LAB WORK July 19, 2024 5:00am [facility] LAB WORK July 20 5:00am [facility] LAB WORK July 25 4:00am [facility] LAB WORK August 02 4:00am LABWORK August 03, 2024 5:00am [facility] LAB WORK August 07 5:00am [facility] LAB WORK September 25 4:00am [facility] LAB WORK October 05 5:00am [facility] LAB WORK October 15, 2024 5 :00am LABWORK October 26, 2024 5:0 0am Chief Complaint Admit Date [facility] LAB WORK August 02 4:00am LABWORK August 03, 2024 5:00am [facility] LAB WORK August 07 5:00am [facility] LAB WORK September 25 4:00am [facility] LAB WORK October 05 5:00am [facility] LAB WORK October 15, 2024 5 :00am LABWORK October 26, 2024 5:0 0am [facility] LAB WORK November 02, 2024 5 :00am Additional Source Comments Source Comments (unrecognize d section and content) In the event this informatio n is protected by the Federal Confidentiality of Alcohol and Drug Abuse Patient Records regulations: The Federal rules restrict any use of the information to criminally investigate or prosecute any alcohol or drug abuse patient.[facility] the event this information is protected by the Federal Confidentiality of Alcohol and Drug Abuse Patient Records regulations: The Federal rules restrict any use of the information to criminally investigate or prosecute any alcohol or drug abuse patient.[facility] Hospital[facility] the event this information is protected by the Federal Confidentiality of Alcohol and Drug Abuse Patient Records regulations: The Federal rules restrict any use of the information to criminally investigate or prosecute any alcohol or drug abuse patient.[facility] the event this information is protected by the Federal Confidentiality of Alcohol and Drug Abuse Patient Records regulations: The Federal rules restrict any use of the information to criminally investigate or prosecute any alcohol or drug abuse patient.[facility] Hospital[facility] the event this information is protected by the Federal Confidentiality of Alcohol and Drug Abuse Patient Records regulations: The Federal rules restrict any use of the information to criminally investigate or prosecute any alcohol or drug abuse patient.[facility] HospitalIn the event this information is protected by the Federal Confidentiality of Alcohol and Drug Abuse Patient Records regulations: The Federal rules restrict any use of the information to criminally investigate or prosecute any alcohol or drug abuse patient.[facility] Hospital[facility] the event this information is protected by the Federal Confidentiality of Alcohol and Drug Abuse Patient Records regulations: The Federal rules restrict any use of the information to criminally investigate or prosecute any alcohol or drug abuse patient.[facility] the event this information is protected by the Federal Confidentiality of Alcohol and Drug Abuse Patient Records regulations: The Federal rules restrict any use of the information to criminally investigate or prosecute any alcohol or drug abuse patient.[facility] the event this information is protected by the Federal Confidentiality of Alcohol and Drug Abuse Patient Records regulations: The Federal rules restrict any use of the information to criminally investigate or prosecute any alcohol or drug abuse patient.[facility] HospitalIn the event this information is protected by the Federal Confidentiality of Alcohol and Drug Abuse Patient Records regulations: The Federal rules restrict any use of the information to criminally investigate or prosecute any alcohol or drug abuse patient.[facility] Hospital[facility] the event this information is protected by the Federal Confidentiality of Alcohol and Drug Abuse Patient Records regulations: The Federal rules restrict any use of the information to criminally investigate or prosecute any alcohol or drug abuse patient.[facility] HospitalIn the event this information is protected by the Federal Confidentiality of Alcohol and Drug Abuse Patient Records regulations: The Federal rules restrict any use of the information to criminally investigate or prosecute any alcohol or drug abuse patient.[facility] HospitalIn the event this information is protected by the Federal Confidentiality of Alcohol and Drug Abuse Patient Records regulations: The Federal rules restrict any use of the information to criminally investigate or prosecute any alcohol or drug abuse patient.[facility] HospitalIn the event this information is protected by the Federal Confidentiality of Alcohol and Drug Abuse Patient Records regulations: The Federal rules restrict any use of the information to criminally investigate or prosecute any alcohol or drug abuse patient.[facility] HospitalIn the event this information is protected by the Federal Confidentiality of Alcohol and Drug Abuse Patient Records regulations: The Federal rules restrict any use of the information to criminally investigate or prosecute any alcohol or drug abuse patient.[facility] HospitalIn the event this information is protected by the Federal Confidentiality of Alcohol and Drug Abuse Patient Records regulations: The Federal rules restrict any use of the information to criminally investigate or prosecute any alcohol or drug abuse patient.[facility] HospitalIn the event this information is protected by the Federal Confidentiality of Alcohol and Drug Abuse Patient Records regulations: The Federal rules restrict any use of the information to criminally investigate or prosecute any alcohol or drug abuse patient.[facility] HospitalIn the event this information is protected by the Federal Confidentiality of Alcohol and Drug Abuse Patient Records regulations: The Federal rules restrict any use of the information to criminally investigate or prosecute any alcohol or drug abuse patient.[facility] HospitalIn the event this information is protected by the Federal Confidentiality of Alcohol and Drug Abuse Patient Records regulations: The Federal rules restrict any use of the information to criminally investigate or prosecute any alcohol or drug abuse patient.[facility] HospitalIn the event this information is protected by the Federal Confidentiality of Alcohol and Drug Abuse Patient Records regulations: The Federal rules restrict any use of the information to criminally investigate or prosecute any alcohol or drug abuse patient.[facility] HospitalIn the event this information is protected by the Federal Confidentiality of Alcohol and Drug Abuse Patient Records regulations: The Federal rules restrict any use of the information to criminally investigate or prosecute any alcohol or drug abuse patient.[facility] HospitalIn the event this information is protected by the Federal Confidentiality of Alcohol and Drug Abuse Patient Records regulations: The Federal rules restrict any use of the information to criminally investigate or prosecute any alcohol or drug abuse patient.[facility] HospitalIn the event this information is protected by the Federal Confidentiality of Alcohol and Drug Abuse Patient Records regulations: The Federal rules restrict any use of the information to criminally investigate or prosecute any alcohol or drug abuse patient.[facility] HospitalIn the event this information is protected by the Federal Confidentiality of Alcohol and Drug Abuse Patient Records regulations: The Federal rules restrict any use of the information to criminally investigate or prosecute any alcohol or drug abuse patient.[facility] HospitalIn the event this information is protected by the Federal Confidentiality of Alcohol and Drug Abuse Patient Records regulations: The Federal rules restrict any use of the information to criminally investigate or prosecute any alcohol or drug abuse patient.[facility] HospitalIn the event this information is protected by the Federal Confidentiality of Alcohol and Drug Abuse Patient Records regulations: The Federal rules restrict any use of the information to criminally investigate or prosecute any alcohol or drug abuse patient.[facility] HospitalIn the event this information is protected by the Federal Confidentiality of Alcohol and Drug Abuse Patient Records regulations: The Federal rules restrict any use of the information to criminally investigate or prosecute any alcohol or drug abuse patient.[facility] HospitalIn the event this information is protected by the Federal Confidentiality of Alcohol and Drug Abuse Patient Records regulations: The Federal rules restrict any use of the information to criminally investigate or prosecute any alcohol or drug abuse patient.[facility] HospitalIn the event this information is protected by the Federal Confidentiality of Alcohol and Drug Abuse Patient Records regulations: The Federal rules restrict any use of the information to criminally investigate or prosecute any alcohol or drug abuse patient.[facility] HospitalIn the event this information is protected by the Federal Confidentiality of Alcohol and Drug Abuse Patient Records regulations: The Federal rules restrict any use of the information to criminally investigate or prosecute any alcohol or drug abuse patient.[facility] HospitalIn the event this information is protected by the Federal Confidentiality of Alcohol and Drug Abuse Patient Records regulations: The Federal rules restrict any use of the information to criminally investigate or prosecute any alcohol or drug abuse patient.[facility] HospitalIn the event this information is protected by the Federal Confidentiality of Alcohol and Drug Abuse Patient Records regulations: The Federal rules restrict any use of the information to criminally investigate or prosecute any alcohol or drug abuse patient.[facility] HospitalIn the event this information is protected by the Federal Confidentiality of Alcohol and Drug Abuse Patient Records regulations: The Federal rules restrict any use of the information to criminally investigate or prosecute any alcohol or drug abuse patient.[facility] HospitalIn the event this information is protected by the Federal Confidentiality of Alcohol and Drug Abuse Patient Records regulations: The Federal rules restrict any use of the information to criminally investigate or prosecute any alcohol or drug abuse patient.[facility] HospitalIn the event this information is protected by the Federal Confidentiality of Alcohol and Drug Abuse Patient Records regulations: The Federal rules restrict any use of the information to criminally investigate or prosecute any alcohol or drug abuse patient.[facility] HospitalIn the event this information is protected by the Federal Confidentiality of Alcohol and Drug Abuse Patient Records regulations: The Federal rules restrict any use of the information to criminally investigate or prosecute any alcohol or drug abuse patient.[facility] HospitalIn the event this information is protected by the Federal Confidentiality of Alcohol and Drug Abuse Patient Records regulations: The Federal rules restrict any use of the information to criminally investigate or prosecute any alcohol or drug abuse patient.[facility] HospitalIn the event this information is protected by the Federal Confidentiality of Alcohol and Drug Abuse Patient Records regulations: The Federal rules restrict any use of the information to criminally investigate or prosecute any alcohol or drug abuse patient.[facility] HospitalIn the event this information is protected by the Federal Confidentiality of Alcohol and Drug Abuse Patient Records regulations: The Federal rules restrict any use of the information to criminally investigate or prosecute any alcohol or drug abuse patient.[facility] HospitalIn the event this information is protected by the Federal Confidentiality of Alcohol and Drug Abuse Patient Records regulations: The Federal rules restrict any use of the information to criminally investigate or prosecute any alcohol or drug abuse patient.[facility] HospitalIn the event this information is protected by the Federal Confidentiality of Alcohol and Drug Abuse Patient Records regulations: The Federal rules restrict any use of the information to criminally investigate or prosecute any alcohol or drug abuse patient.[facility] HospitalIn the event this information is protected by the Federal Confidentiality of Alcohol and Drug Abuse Patient Records regulations: The Federal rules restrict any use of the information to criminally investigate or prosecute any alcohol or drug abuse patient.[facility] HospitalIn the event this information is protected by the Federal Confidentiality of Alcohol and Drug Abuse Patient Records regulations: The Federal rules restrict any use of the information to criminally investigate or prosecute any alcohol or drug abuse patient.[facility] HospitalIn the event this information is protected by the Federal Confidentiality of Alcohol and Drug Abuse Patient Records regulations: The Federal rules restrict any use of the information to criminally investigate or prosecute any alcohol or drug abuse patient.[facility] HospitalIn the event this information is protected by the Federal Confidentiality of Alcohol and Drug Abuse Patient Records regulations: The Federal rules restrict any use of the information to criminally investigate or prosecute any alcohol or drug abuse patient.[facility] HospitalIn the event this information is protected by the Federal Confidentiality of Alcohol and Drug Abuse Patient Records regulations: The Federal rules restrict any use of the information to criminally investigate or prosecute any alcohol or drug abuse patient.[facility] HospitalIn the event this information is protected by the Federal Confidentiality of Alcohol and Drug Abuse Patient Records regulations: The Federal rules restrict any use of the information to criminally investigate or prosecute any alcohol or drug abuse patient.[facility] HospitalIn the event this information is protected by the Federal Confidentiality of Alcohol and Drug Abuse Patient Records regulations: The Federal rules restrict any use of the information to criminally investigate or prosecute any alcohol or drug abuse patient.[facility] HospitalIn the event this information is protected by the Federal Confidentiality of Alcohol and Drug Abuse Patient Records regulations: The Federal rules restrict any use of the information to criminally investigate or prosecute any alcohol or drug abuse patient.[facility] HospitalIn the event this information is protected by the Federal Confidentiality of Alcohol and Drug Abuse Patient Records regulations: The Federal rules restrict any use of the information to criminally investigate or prosecute any alcohol or drug abuse patient.[facility] HospitalIn the event this information is protected by the Federal Confidentiality of Alcohol and Drug Abuse Patient Records regulations: The Federal rules restrict any use of the information to criminally investigate or prosecute any alcohol or drug abuse patient.[facility] HospitalIn the event this information is protected by the Federal Confidentiality of Alcohol and Drug Abuse Patient Records regulations: The Federal rules restrict any use of the information to criminally investigate or prosecute any alcohol or drug abuse patient.[facility] HospitalIn the event this information is protected by the Federal Confidentiality of Alcohol and Drug Abuse Patient Records regulations: The Federal rules restrict any use of the information to criminally investigate or prosecute any alcohol or drug abuse patient.[facility] HospitalIn the event this information is protected by the Federal Confidentiality of Alcohol and Drug Abuse Patient Records regulations: The Federal rules restrict any use of the information to criminally investigate or prosecute any alcohol or drug abuse patient.[facility] HospitalIn the event this information is protected by the Federal Confidentiality of Alcohol and Drug Abuse Patient Records regulations: The Federal rules restrict any use of the information to criminally investigate or prosecute any alcohol or drug abuse patient.[facility] HospitalIn the event this information is protected by the Federal Confidentiality of Alcohol and Drug Abuse Patient Records regulations: The Federal rules restrict any use of the information to criminally investigate or prosecute any alcohol or drug abuse patient.[facility] HospitalIn the event this information is protected by the Federal Confidentiality of Alcohol and Drug Abuse Patient Records regulations: The Federal rules restrict any use of the information to criminally investigate or prosecute any alcohol or drug abuse patient.[facility] HospitalIn the event this information is protected by the Federal Confidentiality of Alcohol and Drug Abuse Patient Records regulations: The Federal rules restrict any use of the information to criminally investigate or prosecute any alcohol or drug abuse patient.[facility] HospitalIn the event this information is protected by the Federal Confidentiality of Alcohol and Drug Abuse Patient Records regulations: The Federal rules restrict any use of the information to criminally investigate or prosecute any alcohol or drug abuse patient.[facility] HospitalIn the event this information is protected by the Federal Confidentiality of Alcohol and Drug Abuse Patient Records regulations: The Federal rules restrict any use of the information to criminally investigate or prosecute any alcohol or drug abuse patient.[facility] HospitalIn the event this information is protected by the Federal Confidentiality of Alcohol and Drug Abuse Patient Records regulations: The Federal rules restrict any use of the information to criminally investigate or prosecute any alcohol or drug abuse patient.[facility] HospitalIn the event this information is protected by the Federal Confidentiality of Alcohol and Drug Abuse Patient Records regulations: The Federal rules restrict any use of the information to criminally investigate or prosecute any alcohol or drug abuse patient.[facility] HospitalIn the event this information is protected by the Federal Confidentiality of Alcohol and Drug Abuse Patient Records regulations: The Federal rules restrict any use of the information to criminally investigate or prosecute any alcohol or drug abuse patient.[facility] HospitalIn the event this information is protected by the Federal Confidentiality of Alcohol and Drug Abuse Patient Records regulations: The Federal rules restrict any use of the information to criminally investigate or prosecute any alcohol or drug abuse patient.[facility] HospitalIn the event this information is protected by the Federal Confidentiality of Alcohol and Drug Abuse Patient Records regulations: The Federal rules restrict any use of the information to criminally investigate or prosecute any alcohol or drug abuse patient.[facility] HospitalIn the event this information is protected by the Federal Confidentiality of Alcohol and Drug Abuse Patient Records regulations: The Federal rules restrict any use of the information to criminally investigate or prosecute any alcohol or drug abuse patient.[facility] HospitalIn the event this information is protected by the Federal Confidentiality of Alcohol and Drug Abuse Patient Records regulations: The Federal rules restrict any use of the information to criminally investigate or prosecute any alcohol or drug abuse patient.[facility] HospitalIn the event this information is protected by the Federal Confidentiality of Alcohol and Drug Abuse Patient Records regulations: The Federal rules restrict any use of the information to criminally investigate or prosecute any alcohol or drug abuse patient.[facility] HospitalIn the event this information is protected by the Federal Confidentiality of Alcohol and Drug Abuse Patient Records regulations: The Federal rules restrict any use of the information to criminally investigate or prosecute any alcohol or drug abuse patient.[facility] HospitalIn the event this information is protected by the Federal Confidentiality of Alcohol and Drug Abuse Patient Records regulations: The Federal rules restrict any use of the information to criminally investigate or prosecute any alcohol or drug abuse patient.[facility] HospitalIn the event this information is protected by the Federal Confidentiality of Alcohol and Drug Abuse Patient Records regulations: The Federal rules restrict any use of the information to criminally investigate or prosecute any alcohol or drug abuse patient.[facility] HospitalIn the event this information is protected by the Federal Confidentiality of Alcohol and Drug Abuse Patient Records regulations: The Federal rules restrict any use of the information to criminally investigate or prosecute any alcohol or drug abuse patient.[facility] HospitalIn the event this information is protected by the Federal Confidentiality of Alcohol and Drug Abuse Patient Records regulations: The Federal rules restrict any use of the information to criminally investigate or prosecute any alcohol or drug abuse patient.[facility] HospitalIn the event this information is protected by the Federal Confidentiality of Alcohol and Drug Abuse Patient Records regulations: The Federal rules restrict any use of the information to criminally investigate or prosecute any alcohol or drug abuse patient.[facility] HospitalIn the event this information is protected by the Federal Confidentiality of Alcohol and Drug Abuse Patient Records regulations: The Federal rules restrict any use of the information to criminally investigate or prosecute any alcohol or drug abuse patient.[facility] HospitalIn the event this information is protected by the Federal Confidentiality of Alcohol and Drug Abuse Patient Records regulations: The Federal rules restrict any use of the information to criminally investigate or prosecute any alcohol or drug abuse patient.[facility] HospitalIn the event this information is protected by the Federal Confidentiality of Alcohol and Drug Abuse Patient Records regulations: The Federal rules restrict any use of the information to criminally investigate or prosecute any alcohol or drug abuse patient.[facility] HospitalIn the event this information is protected by the Federal Confidentiality of Alcohol and Drug Abuse Patient Records regulations: The Federal rules restrict any use of the information to criminally investigate or prosecute any alcohol or drug abuse patient.[facility] HospitalIn the event this information is protected by the Federal Confidentiality of Alcohol and Drug Abuse Patient Records regulations: The Federal rules restrict any use of the information to criminally investigate or prosecute any alcohol or drug abuse patient.[facility] HospitalIn the event this information is protected by the Federal Confidentiality of Alcohol and Drug Abuse Patient Records regulations: The Federal rules restrict any use of the information to criminally investigate or prosecute any alcohol or drug abuse patient.[facility] Reason for Visit (unrecogniz ed section and content) Reason Comments Refill Request Reason Comments Orders PTH Reason Comments Patient Question order for edilson chow Reason Comments Results Reason Comments Diabetes Hypertension Hyperlipidemia Rx Refills Reason Comments Diabetes Rx Refills discuss taking over all medications Reason Comments Hypertension check up Hyperlipidemia Diabetes Reason Comments Consult Cardiology Reason Comments Cough x 2 weeks Diabetes Reason Comments Fall Reason Onset Date Comments Refill Request Refill Request 11/09/2021 Reason Comments Diabetes Hypertension Results results from 09/16. Reason Comments Altered Mental Status Reason Comments Medication Problem Reason Comments Results Orders Reason Comments Home Care Reason Comments Orders Increase lasix x 1 w k, bmp in one wk Reason Comments Patient Update Orders Reason Comments Patient Update Reason Comments Diabetes Swelling Follow up. Both legs . Right worse than left. discuss lasix dose and BMP Reason Comments Patient Question Reason Comments Refill Request Losartan Reason Comments Diabetes Hypertension Cough Nasal Congestion wants to discuss how much Furosemide to take Reason Comments Patient Question Reason Comments Urinary Frequency Pt states painful ur ination, family states that pt has been acting more confused since Tuesday. PT was able to answer orientation questions appropriately. Specialty Diagnoses / Procedures Referred By Contac t Referred To Contact Diagnoses UTI (urinary tract infection) Cystitis BARRY (acute kidney injury) ([facility]/HCC) ([facility]) Procedures . Pola Henderson MD [address] [place] [address] [facility] [address] [place] [address] Referral ID Status Reason Start Date Expiration Date Visits Re quested Visits Authorized [id number] 1 1 Specialty Diagnoses / Procedures Referred By Jen islas Referred To Contact Diagnoses Nonrheumatic aortic (valve) stenosis Procedures [place] ECHO TTHRC R-T 2D W/WOM-MODE COMPL SPEC&COLR D [facility] Non-Invasive Cardiology [address] [place] [address] Referral ID Status Reason Start Date Expiration Date Visits Re quested Visits Authorized [id number] 1 1 Reason Onset Date Comments Results 12/09/2022 Echo Reason Comments Appointment Specialty Diagnoses / Procedures Referred By Jen islas Referred To Contact Cardiology Diagnoses Other specified soft tissue disorders Procedures Vascular US lower extremity venous duplex right [facility], [address] [place] [address] Referral ID Status Reason Start Date Expiration Date V isits Requested Visits Authorized [id number] Closed Perform Procedure 03/07/2023 09/03/2023 1 1 Reason Comments Swelling Right leg swelling a nd redness. Left foot swelling. Urinary Frequency Reason Comments Follow Up 1 week recheck swell ing and redness. Patient states she has been watching her salt intake. Patient states has today and tomorrow left of antibiotic Reason Comments 6 Month Follow-up Reason Comments F/U 3 Month Diabetes Hypertension Reason Comments Results antibiotics Reason Onset Date Comments Med Refill 12/06/2023 Reason Comments Urinary Frequency Burning with urinati on Confusion Leg Edema Right lower leg, red ness, blisters Reason Comments Consult Consult to nephrolog y, ckd chronic kidney disease state 4 gfr 15-29 confirm [id number] Reason Comments Consult Consult to ophthalmo logy, screening for diabetic retinopathy confirm [id number] Reason Comments Follow Up 4 week follow up for UTI Diabetes Wound Check Right lower leg dry skin patient wants talk about Lasix Reason Comments Urinary Problem Family called pt renetta leon and she seemed a little off like she does when she has a UTI. Most recent UTI was a month ago. PT has frequent UTI's Specialty Diagnoses / Procedures Referred By Jen islas Referred To Contact Diagnoses Cellulitis of right lower extremity Acute cystitis without hematuria Procedures . Sukhi Maurer MD [address] [address] [facility] [address] [place] [address] Referral ID Status Reason Start Date Expiration Date Visits Re quested Visits Authorized [id number] 1 1 Reason Onset Date Comments Transition Of Care 02/08/2024 [facility] D[facility]C to SNF 02/02/24 Reason Onset Date Comments Transition Of Care 02/15/2024 Discharged fr [facility] to Home Reason Onset Date Comments Transition Of Care 02/15/2024 DC SNF 02/13/24 Reason Comments prescription Reason Onset Date Comments Transition Of Care 02/29/2024 Reason Comments Transition Of Care [facility] Reason Onset Date Comments Transition Of Care 03/14/2024 Reason Comments Annual Exam Reason Comments Edema Started swelling and seepingRight leg May - Left leg started on Tu Reason Onset Date Comments Results 03/21/2024 Reason Comments Orders Handicap placard req uested Reason Onset Date Comments Refill Request Medication Question 04/07/2024 Citalopram Specialty Diagnoses / Procedures Referred By Jen islas Referred To Contact Cardiology Diagnoses Coronary artery disease involving coronary bypass graft of [place] heart without angina pectoris Nonrheumatic aortic valve stenosis Procedures Transthoracic echocardiogram (TTE) complete with contrast, bubble, strain, and 3D PRN [place] ECHO TTHRC R-T 2D W/WOM-MODE COMPL SPEC&COLR D [place] TTE W OR WO FOL WCON,DOPPLER Jose Joel MD [address] [place] [address] Referral ID Status Reason Start Date Expiration Date Visits Re quested Visits Authorized [id number] Closed 03/15/2024 06/12/2024 1 1 Specialty Diagnoses / Procedures Referred By Jen islas Referred To Contact Cardiology Diagnoses Chronic kidney disease, stage 4 (severe) (HCC) Procedures Vascular US renal artery duplex complete Le Dobson, MACHINE TESTER - CARDIOVASCULAR DISEASE SPECIALIST [address] [place] [address] Referral ID Status Reason Start Date Expiration Date Visits Re quested Visits Authorized [id number] Closed 04/06/2024 04/06/2025 1 1 Reason Comments F/U Diabetes 3 Month Neck Pain Pain in shoulders an d neck Reason Comments Fatigue Pt sts that she has felt tired and worn out since yesterday evening. Pt checking her pulse ox at home and found that her pulse is 35. Pt HR 35 in triage. Pt complains of shortness of breath and feeling tired. Bradycardia HR 35 in triage. Specialty Diagnoses / Procedures Referred By Contac t Referred To Contact Diagnoses Elevated troponin Elevated brain natriuretic peptide (BNP) level Symptomatic sinus bradycardia Procedures - Matthew Morillo MD [address] [place] [address] Phone: tel: fax: [facility] Cardiac Progressive Care Unit PCU [address] [place] [address] Phone: tel: Referral ID Status Reason Start Date Expiration Date Visits Re quested Visits Authorized [id number] 1 1 Reason Comments Reason Comments Hospital Discharge 06/01/24 [facility], pace maker placement. Skin Check Skin tag right upper shoulder area Reason Comments Altered Mental Status Complaint of alter ed mental status and weakness that started several days ago. Patient is confused at this time and very tired. Patient is able to be aroused with voice. Patient denies pain at this time Specialty Diagnoses / Procedures Referred By Contac t Referred To Contact Diagnoses Acute cystitis with hematuria Altered mental status, unspecified altered mental status type Procedures [id number] cystitis with hematuria Erinn Santoro MD [address] [place] [address] Phone: tel: fax: [facility] Intensive Care Unit ICU [address] [place] [address] Phone: tel: Referral ID Status Reason Start Date Expiration Date Visits Re quested Visits Authorized [id number] 1 1 Reason Onset Date Comments Transition Of Care 2024 [facility] Dischar ge to SNF Reason Comments 6 Month Follow-up Reason Onset Date Comments Transition Of Care 08/03/2024 SNF Update ([facility] j[facility] Term resident) Reason Onset Date Comments Med Management 10/01/2024 Reason Comments Follow-up Telephone Encounter - Bobby Marilin - 08/29/2020 10:06 AM ESTTelephone Encounter - Bobby Marilin - 08/29/2020 10:02 AM ESTTelephone Encounter - Bobby, Marilin - 09/04/2020 2:23 PM EST Miscellaneous Notes (unrecog nized section and content) Pharmacy requesting this metformin 1,000 for BID. Chart says once a day and also 500mg every day once a day. Lynn showed 1,000mg BID. Patient was seen yesterday. Ok to refill? Pharmacy faxed requesting the following refill Refill(s) Requested: Pending Prescriptions Disp Refills METFORMIN 1,000 MG TABLET 180 tablet 0 Sig: TAKE 1 TABLET BY MOUTH TWICE A DAY ANNABELLE: Yes ALLERGIES Allergen Reactions Codeine Hives, Rash Codeine Sulfate Unknown (home) Last Visit date: 08/28/2020 Future appointment: 11/26/2020 The patients preferred pharmacy has been captured for this encounter? yes Request is for script(s) to be escript to pharmacy. Marilin Rosales LPN documented in this encounter Patient advised. She will stop in on Tuesday she said to have the blood work drawn. Left message to call office back. Needs order for PTH blood work. ----- Message from Komal Cohn sent at 09/01/2020 9:44 AM EST ----- Pth documented in this encounter Patient requesting order for compression stockings. documented in this encounter Patient advised Left message to call pth ok documented in this encounter Pharmacy faxed requesting the following refill Refill(s) Requested: Pending Prescriptions Disp Refills LEVOTHYROXINE 50 MCG TABLET 90 tablet 1 Sig: TAKE 1 TABLET BY MOUTH EVERY DAY ANNABELLE: Yes FLUTICASONE PROPIONATE 50 MCG/ACTUATION NASAL SPRAY,SUSPENSION 48 mL 3 Sig: USE 2 SPRAY(S) EVERY DAY BY INTRANASAL ROUTE FOR 90 DAYS. ANNABELLE: Yes ALLERGIES Allergen Reactions Codeine Hives, Rash Codeine Sulfate Unknown (home) Last Visit date: 09/23/2020 Future appointment: 11/26/2020 The patients preferred pharmacy has been captured for this encounter? yes Request is for script(s) to be escript to pharmacy. Marilin Rosales LPN documented in this encounter Pharmacy faxed requesting the following refill Refill(s) Requested: Pending Prescriptions Disp Refills MINOCYCLINE 50 MG CAPSULE 90 capsule 1 Sig: TAKE 1 CAPSULE BY MOUTH EVERY DAY IN THE MORNING ANNABELLE: Yes ALLERGIES Allergen Reactions Codeine Hives, Rash Codeine Sulfate Unknown (home) Last Visit date: 09/23/2020 Future appointment: 11/26/2020 The patients preferred pharmacy has been captured for this encounter? yes Request is for script(s) to be escript to pharmacy. Marilin Rosales LPN documented in this encounter Pharmacy faxed requesting the following refill Refill(s) Requested: Pending Prescriptions Disp Refills OMEPRAZOLE 40 MG CAPSULE,DELAYED RELEASE 90 capsule 1 Sig: TAKE 1 CAPSULE BY MOUTH EVERY DAY ANNABELLE: Yes ALLERGIES Allergen Reactions Codeine Hives, Rash Codeine Sulfate Unknown (home) Last Visit date: 09/23/2020 Future appointment: 11/26/2020 The patients preferred pharmacy has been captured for this encounter? yes Request is for script(s) to be escript to pharmacy. Marilin Rosales LPN documented in this encounter Care Teams (unrecognized sec tion and content) 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 Start Date End Date LalitKomal greenberg, DO [address] [place] [address] 22798 PCP - General Family Practice 05/22/18 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 Start Date End Date LalitKomal greenberg, DO [address] [place] [address] 31337 PCP - General Family Practice 05/22/18 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 Start Date End Date LalitKomal greenberg, DO [address] [place] [address] 94816 PCP - General Family Practice 05/22/18 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 Start Date End Date Komal Cohn, DO [address] [place] [address] 24985 PCP - General Family Practice 05/22/18 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 Start Date End Date LalitKomal greenberg, DO [address] [place] [address] 64655 PCP - General Family Practice 05/22/18 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 Start Date End Date Lalit, [place] Luna, DO [address] [place] [address] 20948 PCP - General Family Practice 05/22/18 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 Start Date End Date LalitLennieKomal Maryan, DO [address] [place] [address] 05779 PCP - General Family Practice 05/22/18 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 Start Date End Date Komal Cohn [address] [place] [address] 59774 PCP - General Family Practice 05/22/18 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 Start Date End Date Komal Cohn DO [address] [place] [address] PCP - General 04/16/15 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 Start Date End Date Komal Cohn [address] [address] PCP - General Family Practice 05/22/18 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 Start Date End Date Komal Cohn [address] [address] PCP - General Family Practice 05/22/18 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 Start Date End Date Komal Cohn [address] [address] PCP - General Family Practice 05/22/18 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 Start Date End Date Komal Cohn [address] [address] PCP - General Family Practice 05/22/18 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 Start Date End Date Komal Cohn [address] [address] PCP - General Family Practice 05/22/18 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 Start Date End Date Komal Cohn [address] [place] [address] PCP - General Family Medicine 05/22/18 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 Start Date End Date Komal Cohn, DO [address] [place] [address] PCP - General Family Medicine 05/22/18 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 Start Date End Date Komal Cohn, DO [address] [place] [address] PCP - General Family Medicine 05/22/18 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 Start Date End Date Komal Cohn, DO [address] [place] [address] PCP - General Family Medicine 05/22/18 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 Start Date End Date Komal Cohn, DO [address] [place] [address] PCP - General Family Medicine 05/22/18 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 Start Date End Date Komal Cohn, DO [address] [place] [address] PCP - General Family Medicine 05/22/18 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 Start Date End Date Komal Cohn, DO [address] [place] [address] PCP - General Family Medicine 05/22/18 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 Start Date End Date Komal Cohn, DO [address] [place] [address] PCP - General Family Medicine 05/22/18 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 Start Date End Date Komal Cohn, DO [address] [place] [address] PCP - General Family Medicine 05/22/18 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 Start Date End Date Komal Cohn DO [address] [place] [address] PCP - General Family Medicine 05/22/18 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 Start Date End Date Komal Cohn DO [address] [place] [address] PCP - General Family Medicine 05/22/18 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 Start Date End Date Komal Cohn DO [address] [place] [address] PCP - General Family Medicine 05/22/18 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 Start Date End Date Komal Cohn DO [address] [place] [address] PCP - General 02/05/18 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 Start Date End Date Komal Cohn DO [address] [place] [address] PCP - General Family Medicine 05/22/18 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 Start Date End Date Komal Cohn DO [address] [place] [address] PCP - General 02/05/18 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 Start Date End Date Komal Cohn DO [address] [place] [address] PCP - General 02/05/18 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 Start Date End Date Komal Cohn DO [address] [place] [address] PCP - General Family Medicine 05/22/18 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 Start Date End Date Komal Cohn DO [address] [place] [address] PCP - General Family Medicine 05/22/18 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 Start Date End Date Komal Cohn DO [address] [place] [address] PCP - General Family Medicine 05/22/18 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 Start Date End Date Komal Cohn DO [address] [place] [address] PCP - General Family Medicine 05/22/18 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 Start Date End Date Komal Cohn DO [address] [place] [address] PCP - General 02/05/18 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 Start Date End Date Komal Cohn DO [address] [place] [address] PCP - General Family Medicine 05/22/18 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 Start Date End Date Komal Cohn DO [address] [place] [address] PCP - General Family Medicine 05/22/18 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 Start Date End Date Komal Cohn DO [address] [place] [address] PCP - General Family Medicine 05/22/18 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 Start Date End Date Komal Cohn DO [address] [place] [address] PCP - General 02/05/18 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 Start Date End Date Komal Cohn DO [address] [place] [address] PCP - General Family Medicine 05/22/18 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 Start Date End Date Komal Cohn DO [address] [place] [address] PCP - General Family Medicine 05/22/18 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 Start Date End Date Komal Cohn DO [address] [place] [address] PCP - General Family Medicine 05/22/18 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 Start Date End Date Komal Cohn DO [address] [place] [address] PCP - General Family Medicine 05/22/18 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 Start Date End Date Komal Cohn DO [address] [place] [address] PCP - General Family Medicine 05/22/18 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 Start Date End Date Komal Cohn DO [address] [place] [address] PCP - General 02/05/18 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 Start Date End Date Komal Cohn DO [address] [place] [address] PCP - General Family Medicine 05/22/18 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 Start Date End Date Komal Cohn DO [address] [place] [address] PCP - General Family Medicine 05/22/18 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 Start Date End Date Komal Cohn DO [address] [place] [address] PCP - General 02/05/18 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 Start Date End Date Komal Cohn DO [address] [place] [address] PCP - General Family Medicine 05/22/18 Lalit Komal LunaDO [address] [place] [address] Referring Family Medicine 01/10/24 Sue Claudio, nurse staff industrial Traveling Passenger Agent 02/08/24 02/08/24 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 Start Date End Date Komal Cohn DO [address] [place] [address]26 PCP - General Family Medicine 05/22/18 Komal Cohn, [address] [place] [address]754 Referring Family Medicine 01/10/24 Latonya Rosado, nurse staff industrial Traveling Passenger Agent 02/15/24 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 Start Date End Date Komal Cohn DO [address] [place] [address] PCP - General Family Medicine 05/22/18 LalitKomal MaryanDO rodríguez [address] [place] [address] Referring Family Medicine 01/10/24 Latonya Rosado, nurse staff industrial Traveling Passenger Agent 02/15/24 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 Start Date End Date Komal Cohn DO [address] [place] [address] 26499 PCP - General Family Medicine 05/22/18 Komal Cohn DO [address] [place] [address]66 Referring Family Medicine 01/10/24 Latonya Rosado, nurse staff industrial Traveling Passenger Agent 02/15/24 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 Start Date End Date Komal Cohn DO [address] [place] [address] PCP - General Family Medicine 05/22/18 Komal Cohn, [address] [place] [address] Referring Family Medicine 01/10/24 Latonya Rosado, nurse staff industrial Traveling Passenger Agent 02/15/24 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 Start Date End Date Komal Cohn DO [address] [place] [address] PCP - General 02/05/18 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 Start Date End Date Komal Cohn DO [address] [place] [address] 44600 PCP - General Family Medicine 05/22/18 Komal Cohn DO [address] [place] [address] 65779 Referring Family Medicine 01/10/24 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 Start Date End Date Komal Cohn DO [address] [place] [address] PCP - General 02/05/18 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 Start Date End Date Komal Cohn DO [address] [place] [address] PCP - General Family Medicine 05/22/18 Komal Cohn DO [address] [place] [address] Referring Family Medicine 01/10/24 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 Start Date End Date Komal Cohn DO [address] [place] [address] PCP - General Family Medicine 05/22/18 Komal Cohn DO [address] [place] [address] Referring Family Medicine 01/10/24 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 Start Date End Date Komal Cohn DO [address] [place] [address] PCP - General Family Medicine 05/22/18 Komal Cohn DO [address] [place] [address] Referring Family Medicine 01/10/24 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 Start Date End Date Komal Cohn DO [address] [place] [address] PCP - General 02/05/18 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 Start Date End Date Komal Cohn DO [address] [place] [address] PCP - General 02/05/18 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 Start Date End Date Komal Cohn DO [address] [place] [address] PCP - General 02/05/18 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 Start Date End Date Komal Cohn DO [address] [place] [address] PCP - General Family Medicine 05/22/18 Komal Cohn [address] [place] [address] Referring Family Medicine 01/10/24 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 Start Date End Date Komal Cohn DO [address] [place] [address] PCP - General 02/05/18 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 Start Date End Date Komal Cohn DO [address] [place] [address] PCP - General 02/05/18 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 Start Date End Date Komal Cohn DO [address] [place], [place] [id number] PCP - General Family Medicine 05/22/18 Komal Cohn DO [address] [place] [address] Referring Family Medicine 01/10/24 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 Start Date End Date Komal Cohn DO [address] [place] [address] PCP - General 02/05/18 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 Start Date End Date Komal Cohn DO [address] [place] [address] PCP - General 02/05/18 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 Start Date End Date Komal Cohn DO [address] [place] [address] PCP - General Family Medicine 05/22/18 Komal Cohn DO [address] [place] [address] Referring Family Medicine 01/10/24 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 Start Date End Date Komal Cohn DO [address] [place] [address] PCP - General 02/05/18 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 Start Date End Date Adin Elias CNP [address] [place] [address] PCP - General Internal Medicine 08/03/24 Komal Cohn DO [address] [place] [address] Referring Family Medicine 01/10/24 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 Start Date End Date Komal Cohn DO [address] [place] [address] PCP - General 02/05/18 Team Status: Active Member Role Status Dates Julieth QURESHI MD Attending Provider Active S tart: July 11, 2024 Team Status: Inactive Member Role Status Dates Julieth QURESHI MD Attending Provider Active S tart: July 17, 2024 End: July 17, 2024 Team Status: Inactive Member Role Status Dates Julieth QURESHI MD Attending Provider Active S tart: July 18, 2024 End: July 18, 2024 Team Status: Active Member Role Status Dates Julieth QURESHI MD Attending Provider Active S tart: July 19, 2024 Team Status: Inactive Member Role Status Dates Julieth QURESHI MD Attending Provider Active S tart: July 20, 2024 End: July 20, 2024 Team Status: Active Member Role Status Dates Julieth QURESHI MD Attending Provider Active S tart: July 25, 2024 Julieth QURESHI MD Referring Provider Active S tart: July 25, 2024 Team Status: Active Member Role Status Dates Julieth QURESHI MD Attending Provider Active S tart: August 02, 2024 Julieth QURESHI MD Referring Provider Active S tart: August 02, 2024 Team Status: Active Member Role Status Dates Julieth QURESHI MD Attending Provider Active S tart: August 03, 2024 Team Status: Active Member Role Status Dates Julieth QURESHI MD Attending Provider Active S tart: August 07, 2024 Team Status: Active Member Role Status Dates Julieth QURESHI MD Attending Provider Active S tart: September 25, 2024 Julieth QURESHI MD Referring Provider Active S tart: September 25, 2024 Team Status: Inactive Member Role Status Dates Julieth QURESHI MD Attending Provider Active S tart: October 05, 2024 End: October 05, 2024 Team Status: Active Member Role Status Dates Julieth QURESHI MD Attending Provider Active S tart: October 15, 2024 Team Status: Active Member Role Status Dates Julieth QURESHI MD Attending Provider Active S tart: October 26, 2024 Team Status: Active Member Role Status Dates Julieth QURESHI MD Attending Provider Active S tart: November 02, 2024 Team Status: Inactive Member Role Status Dates Julieth QURESHI MD Attending Provider Active S tart: October 15, 2024 End: October 15, 2024 Team Status: Inactive Member Role Status Dates Julieth QURESHI MD Attending Provider Active S tart: October 26, 2024 End: October 26, 2024 Team Status: Active Member Role Status Dates Julieth QURESHI MD Attending Provider Active S tart: November 12, 2024 Team Status: Inactive Member Role Status Dates Julieth QURESHI MD Attending Provider Active S tart: November 02, 2024 End: November 02, 2024 Team Status: Active Member Role Status Dates Jluieth QURESHI MD Attending Provider Active S tart: November 26, 2024 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 Start Date End Date Julieth Olmedo DO [address] [place] [address] PCP - General Internal Medicine 01/11/25 Ordered Prescriptions (unrec ognized section and content) Prescription Sig Dispensed Refills Start Date End Da te levothyroxine (SYNTHROID) 50 MCG tablet Take 1 tablet by mouth Daily 30 tablet 3 12/23/2021 linezolid (ZYVOX) 600 MG tablet Take 1 tablet by mouth 2 times daily for 6 days 12 tablet 0 12/22/2021 12/28/2021 benzonatate (TESSALON) 100 MG capsule Take 1 capsule by mouth 3 times daily as needed for Cough 20 capsule 0 12/22/2021 12/29/2021 atenolol (TENORMIN) 50 MG tablet Take 1 tablet by mouth daily 30 tablet 3 12/23/2021 levothyroxine (SYNTHROID) 50 MCG tablet Take 1 tablet by mouth Daily 30 tablet 3 12/23/2021 12/22/2021 cephALEXin (KEFLEX) 500 MG capsule Take 1 capsule by mouth 4 times daily for 5 days 20 capsule 0 12/13/2021 12/22/2021 Scheduled Active and Recently Administ ered Medications (unrecognized section and content) Medication Order 12/20/2021 12/21/2021 12/22/2021 aspirin chewable tablet 81 mg 81 mg, Oral, DAILY, First dose on 12/13/21 at 1830, Until Discontinued 0844 (Given - Provider: Yolanda Wahl RN) 0915 (Given - Provider: Cathy Tavarez RN) 0842 (Given - Provider: Clinton Mustafa RN) atenolol (TENORMIN) tablet 50 mg 50 mg, Oral, DAILY, First dose on 12/13/21 at 1830, Until Discontinued 0843 (Given - Provider: Yolanda Wahl RN) 0917 (Given - Provider: Cathy Tavarez RN) 0842 (Given - Provider: Clinton Mustafa RN) citalopram (CELEXA) tablet 20 mg 20 mg, Oral, DAILY, First dose on 12/13/21 at 1830, Until Discontinued 0843 (Given - Provider: Yolanda Wahl RN) 0915 (Given - Provider: Cathy Tavarez RN) 0842 (Given - Provider: Clinton Mustafa RN) enoxaparin (LOVENOX) injection 40 mg 40 mg, SubCUTAneous, DAILY, First dose on 12/13/21 at 1830, Until Discontinued, Indication of Use: Prophylaxis-DVT/PE 0843 (Given - Provider: Yolanda Wahl RN) 0915 (Given - Provider: Cathy Tavarez RN) 0842 (Given - Provider: Clinton Mustafa RN) ferrous sulfate (IRON 325) tablet 325 mg 325 mg, Oral, DAILY WITH BREAKFAST, First dose on Tue12/14/21 at 0800, Until Discontinued 0843 (Given - Provider: Yolanda Wahl RN) 0916 (Given - Provider: Cathy Tavarez RN) 1249 (Given - Provider: Clinton Mustafa RN) fluticasone (FLONASE) 50 MCG/ACT nasal spray 2 spray 2 spray, Each Nostril, DAILY, First dose on Tue12/14/21 at 1230, Until Discontinued 0843 (Given - Provider: Yolanda Wahl RN) 0915 (Given - Provider: Cathy Tavarez RN) 0842 (Given - Provider: Clinton Mustafa RN) furosemide (LASIX) tablet 40 mg 40 mg, Oral, DAILY, First dose on Gerda 12/17/21 at 1615, Until Discontinued 0900 (Automatically Held - Provider: Ariel Solitario MD) 0900 (Automatically Held - Provider: Ariel Solitario MD) 0900 (Automatically Held - Provider: Ariel Solitario MD) insulin lispro (HUMALOG) injection vial 0-6 Units 0-6 Units, SubCUTAneous, 3 TIMES DAILY WITH MEALS, First dose on Tue12/13/21 at 2000, Until Discontinued, Corrective Low Dose Algorithm Glucose: Dose: 70-139 No Insulin 140-199 1 Unit 200-249 2 Units 250-299 3 Units 300-349 4 Units 350-399 5 Units Over 399 6 Units 0735 (Not Given - Provider: Yolanda Wahl RN - Reason: Order parameters not met)1204 (Not Given - Provider: Yolanda Wahl RN - Reason: Order parameters not met)1723 (Not Given - Provider: Yolanda Wahl RN - Reason: Order parameters not met) 0910 (Not Given - Provider: Cathy Tavarez RN - Reason: Order parameters not met)1244 (Given - Provider: Cathy Tavarez RN)1706 (Not Given - Provider: Cathy Tavarez RN - Reason: Order parameters not met) 0742 (Not Given - Provider: Clinton Mustafa RN - Reason: Order parameters not met)1448 (Not Given - Provider: Clinton Mustafa RN - Reason: Patient/family refused)1746 (Not Given - Provider: Clinton Mustafa RN - Reason: Order parameters not met) ipratropium-albuterol (DUONEB) nebulizer solution 1 ampule 1 ampule, Inhalation, 2 TIMES DAILY, First dose (after last modification) on Tue12/18/21 at 2000, Until Discontinued, Initiate RT Bronchodilator Protocol: Yes 928 (Given - Provider: Mason Peraza RCP)2047 (Given - Provider: Amauri Oh RCP) 0818 (Given - Provider: Davion Lackey RCP)184 (Given - Provider: Davion Lackey RCP) 1001 (Given - Provider: Guy Dimas RCP)1999 (Due) levothyroxine (SYNTHROID) tablet 50 mcg 50 mcg, Oral, DAILY, First dose on Tue12/14/21 at 0700, Until Discontinued, Tube feeding (TF) interaction, obtain physician order to manage, recommend holding TF for 30 minutes before and after dose. 0528 (Given - Provider: Maia Romero RN) 0541 (Given - Provider: Maia Romero RN) 0842 (Given - Provider: Clinton Mustafa RN) losartan (COZAAR) tablet 50 mg 50 mg, Oral, DAILY, First dose on 12/13/21 at 1830, Until Discontinued 0843 (Given - Provider: Yolanda Wahl RN) 0916 (Given - Provider: Cathy Tavarez RN) 0842 (Given - Provider: Clinton Mustafa RN) metFORMIN (GLUCOPHAGE) tablet 1,000 mg 1,000 mg, Oral, DAILY WITH DINNER, First dose on 12/13/21 at 1830, Until Discontinued 1730 (Automatically Held) 1730 (Automatically Held) 1730 (Automatically Held) metFORMIN (GLUCOPHAGE) tablet 500 mg 500 mg, Oral, DAILY WITH BREAKFAST, First dose on Tue12/14/21 at 0800, Until Discontinued 0843 (Given - Provider: Yolanda Wahl RN) 0916 (Given - Provider: Cathy Tavarez RN) 0843 (Given - Provider: Clinton Mustafa RN) miconazole (MICOTIN) 2 % powder Topical, 2 TIMES DAILY, First dose on Tue12/14/21 at 1230, Apply to affected areas. Substituted for Nystatin (MICOSTATIN) powder. 0844 (Given - Provider: Yolanda Wahl RN)2038 (Given - Provider: Maia Romero RN) 0918 (Given - Provider: Cathy Tavarez RN)212 (Given - Provider: Diaz Hughes RN) 0846 (Given - Provider: Clinton Mustafa RN)2100 (Due) minocycline (MINOCIN;DYNACIN) capsule 50 mg 50 mg, Oral, DAILY, First dose on 12/13/21 at 1830, Until Discontinued, Antimicrobial Indications: Other, Other Abx Indication: chronic, confirm with pt /family 0900 (Automatically Held) 0900 (Automatically Held) 0900 (Automatically Held) pantoprazole (PROTONIX) tablet 40 mg 40 mg, Oral, DAILY BEFORE BREAKFAST, First dose on Tue12/14/21 at 0700, Until Discontinued, Do not crush or break. Substituted for Omeprazole (PRILOSEC). 0528 (Given - Provider: Maia Romero RN) 0541 (Given - Provider: Maia Romero RN) 0842 (Given - Provider: Clinton Mustafa, RN) potassium chloride (KLOR-CON M) extended release tablet 10 mEq 10 mEq, Oral, DAILY WITH BREAKFAST, First dose on 12/13/21 at 1830, Until Discontinued, Do not crush, chew, or suck on tablet. Tablet may also be broken in half and each half swallowed separately. 0844 (Given - Provider: Yolanda Wahl RN) 0916 (Given - Provider: Cathy Tavarez RN) 0843 (Given - Provider: Clinton Mustafa RN) sodium chloride flush 0.9 % injection 5-40 mL 5-40 mL, IntraVENous, EVERY 12 HOURS SCHEDULED (2 times per day), First dose on 12/13/21 at 2100, Until Discontinued, For Line Patency: Peripheral IV = 5 mL; Midline or Central Line = 10 mL/lumen. If following IV push medication, administer flush at same rate as the IV push. Flush volume is determined by type of infusion therapy being given. For non-viscous solutions use: Peripheral IV = 5 mL Midline or Central Line = 10 mL/lumen For viscous solutions (i.e. blood components, parenteral nutrition, contrast media, or after obtaining blood sample) use: Peripheral IV = 10 mL Midline or Central Line = 20 mL/lumen 0843 (Given - Provider: Yolanda Wahl RN)2038 (Given - Provider: Maia Romero RN) 0917 (Given - Provider: Cathy Tavarez RN)2122 (Given - Provider: Diaz Hughes, JANES) 0843 (Given - Provider: Clinton Mustafa, JANES)2099 (Due) ticagrelor (BRILINTA) tablet 90 mg 90 mg, Oral, 2 TIMES DAILY, First dose on 12/13/21 at 2100, Until Discontinued, ANTIPLATELET! 0843 (Given - Provider: Yolanda Wahl RN)2038 (Given - Provider: Maia Romero RN) 0916 (Given - Provider: Cathy Tavarez RN)2122 (Given - Provider: Diaz Hughes RN) 0842 (Given - Provider: Clinton Mustafa, JANES)2100 (Due) vancomycin (VANCOCIN) 1750 mg in sodium chloride 0.9% 500 mL IVPB 1,750 mg (18.9 mg/kg), IntraVENous, at 333.3 mL/hr, Administer over 90 Minutes, EVERY 24 HOURS, First dose on 12/20/21 at 1400 1553 (New Bag - Provider: Yolanda Wahl RN - Comment: med not available)2014 (Stopped - Provider: Maia Romero RN) 1448 (New Bag - Provider: Cathy Tavarez RN)1807 (Stopped - Provider: Cathy Tavarez RN) 1447 (Not Given - Provider: Clinton Mustafa RN - Reason: Other - Comment: Per Dr. Mclaughlin. Switching to PO) vitamin D (CHOLECALCIFEROL) capsule 5,000 Units 5,000 Units, Oral, DAILY WITH DINNER, First dose on 12/13/21 at 1830, Until Discontinued 1806 (Given - Provider: Yolanda Wahl RN) 1707 (Given - Provider: Cathy Tavarez RN) 1747 (Given - Provider: Clinton Mustafa RN) vitamin E capsule 800 Units 800 Units, Oral, DAILY, First dose on 12/13/21 at 1830, Until Discontinued 0843 (Given - Provider: Yolanda Wahl RN) 0916 (Given - Provider: Cathy Tavarez RN) 0842 (Given - Provider: Clinton Mustafa RN) PRN Medication Order 12/20/2021 12/21/2021 12/22/2021 0.9 % sodium chloride infusion IntraVENous, at 5-250 mL/hr, PRN, if patient receiving piggyback infusions and maintenance fluids are not ordered OR KVO fluids to protect IV site / prevent frequent line interruptions/ long duration, Starting on 12/13/21 at 1807, For piggyback infusion, administer at same rate as piggyback for a total of 25 mL. Enter 25 mL into dose field and piggyback rate into rate field of order. If piggyback is infusing at a rate less than 100 mL/hr, enter 25 mL into dose field and 100 mL/hr into rate field of order. For KVO fluids, enter rate of 20 mL/hr or less into rate field of order. acetaminophen (TYLENOL) suppository 650 mg(Linked Group 1) 650 mg, Rectal, EVERY 6 HOURS PRN, Starting on 12/13/21 at 1807, Until Discontinued, Pain Mild (1-3), Fever, For temp greater than 100.4 F (38 C), Administer if oral route cannot be used. acetaminophen (TYLENOL) tablet 650 mg(Linked Group 1) 650 mg, Oral, EVERY 6 HOURS PRN, Starting on Tue12/13/21 at 1807, Until Discontinued, Pain Mild (1-3), Fever, For temp greater than 100.4 F (38 C), Maximum dose of acetaminophen is 4000 mg from all sources in 24 hours. benzonatate (TESSALON) capsule 100 mg 100 mg, Oral, 3 TIMES DAILY PRN, Starting on Tue12/18/21 at 0343, Until Discontinued, Cough dextrose 5 % solution 100 mL/hr, IntraVENous, PRN, Low blood sugar, Starting on Tue12/13/21 at 1807, Start infusion following administration of dextrose 50% or glucagon. dextrose 50 % IV solution 12.5 g, IntraVENous, PRN, Starting on Tue12/13/21 at 1807, Until Discontinued, Low blood sugar, Blood glucose less than 70 mg/dL and patient NOT ALERT or NPO., If patient does not respond within 5 minutes, repeat dose x1. Start D5W at 100 mL/hour until ordering provider can be reached. Repeat blood glucose in 15 minutes. If blood glucose is less than 70 mg/dL, repeat treatment and recheck blood glucose in 15 minutes x2. If using Glucostabilizer, dose as instructed per system. glucagon (rDNA) injection 1 mg 1 mg, IntraMUSCular, PRN, Starting on Tue12/13/21 at 1807, Until Discontinued, Low blood sugar, Blood glucose less than 70 mg/dL and patient NOT ALERT or NPO and does not have IV access., After administration, attempt intravenous access and start D5W at 100 mL/hr. Repeat blood glucose in 15 minutes x2 and notify provider. glucose (GLUTOSE) 40 % oral gel 15 g 15 g, Oral, PRN, Starting on Tue12/13/21 at 1807, Until Discontinued, Low blood sugar, If blood glucose less than 50 mg/dL and patient ALERT and TOLERATING PO, give 2 tubes glucose gel. If blood glucose less than 70 mg/dL and patient ALERT and TOLERATING PO, give 1 tube glucose gel. Repeat blood glucose in 15 minutes. If blood glucose is less than 70 mg/dL, repeat treatment and recheck blood glucose in 15 minutes x2 and notify provider. ipratropium-albuterol (DUONEB) nebulizer solution 1 ampule 1 ampule, Inhalation, EVERY 4 HOURS PRN, Starting on 12/14/21 at 1807, Until Discontinued, Shortness of Breath, Initiate RT Bronchodilator Protocol: Yes polyethylene glycol (GLYCOLAX) packet 17 g 17 g, Oral, DAILY PRN, Starting on Tue12/18/21 at 1021, Until Discontinued, Constipation sodium chloride flush 0.9 % injection 5-40 mL 5-40 mL, IntraVENous, PRN, Starting on 12/13/21 at 1807, Until Discontinued, Line Care, After every IV line use, For Line Patency: Peripheral IV = 5 mL; Midline or Central Line = 10 mL/lumen. If following IV push medication, administer flush at same rate as the IV push. Flush volume is determined by type of infusion therapy being given. For non-viscous solutions use: Peripheral IV = 5 mL Midline or Central Line = 10 mL/lumen For viscous solutions (i.e. blood components, parenteral nutrition, contrast media, or after obtaining blood sample) use: Peripheral IV = 10 mL Midline or Central Line = 20 mL/lumen Linked Groups Order Group 1: acetaminophen (TYLENOL) tablet 650 mgJump to med 650 mg, Oral, EVERY 6 HOURS PRN, Starting on Tue12/13/21 at 1807, Until Discontinued, Pain Mild (1-3), Fever, For temp greater than 100.4 F (38 C)
Maximum dose of acetaminophen is 4000 mg from all sources in 24 hours.
Or acetaminophen (TYLENOL) suppository 650 mgJump to med 650 mg, Rectal, EVERY 6 HOURS PRN, Starting on 12/13/21 at 1807, Until Discontinued, Pain Mild (1-3), Fever, For temp greater than 100.4 F (38 C)
Administer if oral route cannot be used.
Scheduled Medication Order 11/17/2022 11/18/2022 11/19/2022 aspirin EC tablet 81 mg 81 mg, Oral, Daily, First dose on Gerda 11/18/22 at 1215, Do not crush, chew, or split. 1555 (Given - Provider: Damaris Hernandez RN) 0985 (Given - Provider: Kristen Herman, JANES) atenolol (Tenormin) tablet 50 mg 50 mg, Oral, Daily, First dose on Tue11/18/22 at 1215 1555 (Given - Provider: Damaris Hernandez RN) 0914 (Given - Provider: Kristen Herman RN) cefTRIAXone (Rocephin) 1 g in sodium chloride 0.9 % 50 mL IVPB Mini-Bag Plus (CANCELED) 1 g, IntraVENous, at 100 mL/hr, Administer over 30 Minutes, Every 24 hours, First dose on Tue11/19/22 at 0000, Mini-Bag Plus bag, Suspected Indication (Select all that apply): Urinary Tract Infection 0026 (New Bag - Provider: Alia Causey RN)0056 (Stopped - Provider: Alia Causey RN) cefTRIAXone (Rocephin) 1,000 mg in sodium chloride 0.9 % 50 mL IVPB Mini-Bag Plus (COMPLETED) 1,000 mg, IntraVENous, at 100 mL/hr, Administer over 30 Minutes, Once, On Tue11/17/22 at 2340, For 1 dose, Mini-Bag Plus bag, Suspected Indication (Select all that apply): Urinary Tract Infection 0038 (New Bag - Provider: Cecy Huertas RN)0108 (Stopped - Provider: Lanie Sousa RN) enoxaparin (Lovenox) syringe 40 mg 40 mg, SubCUTAneous, Every 24 hours scheduled (Daily), First dose on Tue11/18/22 at 0900, Indication of Use: Prophylaxis-DVT/PE, Indications: Prophylaxis of Venous Thromboembolism 08 (Given - Provider: Kathya Rosen RN) 0919 (Given - Provider: Kristen Herman RN) ferrous sulfate tablet 325 mg 325 mg, Oral, Daily with breakfast, First dose on Tue11/19/22 at 0800 0914 (Given - Provid er: Kristen Herman RN) furosemide (Lasix) tablet 20 mg 20 mg, Oral, Daily, First dose on Tue11/18/22 at 1215 1555 (Given - Provider: Damaris Hernandez RN) 0919 (Given - Provider: Kristen Herman RN) levothyroxine (Synthroid, Levoxyl) tablet 50 mcg 50 mcg, Oral, Daily before breakfast, First dose on Tue11/19/22 at 0700, Tube feeding (TF) interaction, obtain physician order to manage, recommend holding TF for 30 minutes before and after dose. 0700 (Given - Provid er: Alia Causey RN) losartan (Cozaar) tablet 25 mg 25 mg, Oral, Daily, First dose on Gerda 11/18/22 at 1215 1215 (Not Given - Provider: Damaris Hernandez RN - Reason: Other - Comment: provider marked as held)1217 (Held by provider - Provider: GARCIA Ruiz CNP - Reason: Other - Comment: Cr1.56 and 1.38 and last GFR 39.5) 0900 (Dose Auto Held - Provider: GARCIA Ruiz CNP)1630 (Unheld by provider - Provider: Automatic Discharge Provider) melatonin tablet 3 mg 3 mg, Oral, Nightly, First dose on Tue11/18/22 at 0120 0120 (Not Given - Provider: Lanie Sousa RN - Reason: Patient/family refused)2040 (Given - Provider: Alia Causey RN) metFORMIN (Glucophage) tablet 500 mg 500 mg, Oral, 2 times daily with meals, First dose on Tue11/18/22 at 1700 1600 (Given - Provider: Damaris Hernandez RN) 0918 (Given - Provider: Kristen Herman RN) pantoprazole (ProtoNix) EC tablet 40 mg 40 mg, Oral, Daily before breakfast, First dose on Tue11/19/22 at 0700, Do not crush, chew, or split. 0700 (Given - Provid er: Alia Causey RN) potassium chloride CR (Klor-Con M10) ER tablet 10 mEq 10 mEq, Oral, Daily, First dose on Gerda 11/18/22 at 1215, Best given with food and plenty of water to minimize gastric irritation. Do not crush or chew. 1555 (Given - Provider: Damaris Hernandez RN) 0913 (Given - Provider: Kristen Herman, JANES) rosuvastatin (Crestor) tablet 20 mg 20 mg, Oral, Daily, First dose on Tue11/18/22 at 1215 1555 (Given - Provider: Damaris Hernandez, RN) 0914 (Given - Provider: Kristen Herman, RN) sodium chloride 0.9 % bolus 500 mL (COMPLETED) 500 mL, IntraVENous, at 500 mL/hr, Administer over 1 Hours, Once, On Tue11/17/22 at 2335, For 1 dose 0039 (New Bag - Provider: Cecy Huertas, RN)0132 (Stopped - Provider: Lanie Sousa RN) Continuous Medication Order 11/17/2022 11/18/2022 11/19/2022 sodium chloride 0.9 % infusion 50 mL/hr, IntraVENous, Continuous, Starting on Gerda 11/18/22 at 0120 0515 (New Bag - Provider: Do bebo Sousa, JANES)0800 (Rate/Dose Verify - Provider: Kathya Rosen, JANES)0830 (Rate/Dose Verify - Provider: Kathya Rosen, JANES)1208 (Rate/Dose Change - Provider: Damaris Hernandez RN) PRN Medication Order 11/17/2022 11/18/2022 11/19/2022 acetaminophen (Tylenol) suppository 650 mg(Linked Group 1) 650 mg, Rectal, Every 6 hours PRN, mild pain (1-3), fever, For temp greater than 100.4 F (38 C), Starting on Tue11/18/22 at 0113, Administer if oral route cannot be used. Maximum dose of acetaminophen is 4000 mg from all sources in 24 hours. acetaminophen (Tylenol) tablet 650 mg(Linked Group 1) 650 mg, Oral, Every 6 hours PRN, mild pain (1-3), fever, For temp greater than 100.4 F (38 C), Starting on Gerda 11/18/22 at 0113, Maximum dose of acetaminophen is 4000 mg from all sources in 24 hours. ondansetron (Zofran) injection 4 mg(Linked Group 2) 4 mg, IntraVENous, Every 6 hours PRN, nausea, vomiting, Starting on Gerda 11/18/22 at 0113, 1st Line. Give IV if patient is unable to take orally. If inadequate response within 60 minutes, proceed to next-line agent or contact provider if no further options ordered. ondansetron ODT (Zofran-ODT) disintegrating tablet 4 mg(Linked Group 2) 4 mg, Oral, Every 8 hours PRN, nausea, vomiting, Starting on Gerda 11/18/22 at 0113, 1st Line. If inadequate response within 60 minutes, proceed to next-line agent or contact provider if no further options ordered. Patient should allow tablet to dissolve on tongue. Do not remove from blister pack until just before administering. polyethylene glycol (PEG) 3350 (Miralax) packet 17 g 17 g, Oral, Daily PRN, constipation, Starting on Gerda 11/18/22 at 0113, 1st line for treatment of constipation - give scheduled if no bowel movement in past 24 hours. Linked Groups Order Group 1: acetaminophen (Tylenol) tablet 650 mgJump to med 650 mg, Oral, Every 6 hours PRN, mild pain (1-3), fever, For temp greater than 100.4 F (38 C), Starting on Gerda 11/18/22 at 0113
Maximum dose of acetaminophen is 4000 mg from all sources in 24 hours.
Or acetaminophen (Tylenol) suppository 650 mgJump to med 650 mg, Rectal, Every 6 hours PRN, mild pain (1-3), fever, For temp greater than 100.4 F (38 C), Starting on Gerda 11/18/22 at 0113
Administer if oral route cannot be used. Maximum dose of acetaminophen is 4000 mg from all sources in 24 hours.
Group 2: ondansetron ODT (Zofran-ODT) disintegrating tablet 4 mgJump to med 4 mg, Oral, Every 8 hours PRN, nausea, vomiting, Starting on Gerda 11/18/22 at 0113
1st Line. If inadequate response within 60 minutes, proceed to next-line agent or contact provider if no further options ordered. Patient should allow tablet to dissolve on tongue. Do not remove from blister pack until just before administering.
Or ondansetron (Zofran) injection 4 mgJump to med 4 mg, IntraVENous, Every 6 hours PRN, nausea, vomiting, Starting on Gerda 11/18/22 at 0113
1st Line. Give IV if patient is unable to take orally. If inadequate response within 60 minutes, proceed to next-line agent or contact provider if no further options ordered.
Scheduled Medication Order 01/31/2024 02/01/2024 02/02/2024 aspirin EC tablet 81 mg 81 mg, Oral, Daily, First dose on 01/28/24 at 1940, Do not crush, chew, or split. 0923 (Given - Provider: Keyana Trimble LPN) 0912 (Given - Provider: Arlene Raza RN) 0848 (Given - Provider: Keyana Trimble LPN) atenolol (Tenormin) tablet 50 mg 50 mg, Oral, Daily, First dose on 01/28/24 at 1940 0923 (Given - Provider: Keyana Trimble LPN) 0912 (Given - Provider: Arlene Raza RN) 0848 (Given - Provider: Keyana Trimble LPN) cefTRIAXone (Rocephin) 1,000 mg in sodium chloride 0.9 % 50 mL IVPB Mini-Bag Plus 1,000 mg, IntraVENous, at 100 mL/hr, Administer over 30 Minutes, Every 24 hours, First dose on 01/29/24 at 1700, Mini-Bag Plus bag, Suspected Indication (Select all that apply): Urinary Tract Infection 1801 (New Bag - Provider: Keyana Trimble LPN)1831 (Stopped - Provider: Donato Hernandez RN) 1214 (New Bag - Provider: Arlene Raza RN)1244 (Stopped - Provider: Arlene Raza RN) 1700 (Canceled Entry - Provider: Automatic Discharge Provider - Comment: Automatically canceled at discontinue of medication order) cholecalciferol (Vitamin D-3) tablet 5,000 Units 5,000 Units, Oral, Daily, First dose on 01/28/24 at 1945 0924 (Given - Provider: Keyana Trimble LPN) 0916 (Given - Provider: Arlene Raza RN) 0849 (Given - Provider: Keyana Trimble LPN) enoxaparin (Lovenox) syringe 40 mg 40 mg, SubCUTAneous, Every 24 hours scheduled (Daily), First dose (after last modification) on 01/29/24 at 0900, Indication of Use: Prophylaxis-DVT/PE, Indications: Prophylaxis of Venous Thromboembolism 0923 (Given - Provider: Keyana Trimble LPN) 0911 (Given - Provider: Arlene Raza RN) 0849 (Given - Provider: Keyana Trimble LPN) ferrous sulfate tablet 325 mg 325 mg, Oral, Daily with breakfast, First dose on Tue01/29/24 at 0800 0925 (Given - Provider: Keyana Trimble LPN) 0916 (Given - Provider: Arlene Raza RN) 0849 (Given - Provider: Keyana Trimble LPN) furosemide (Lasix) tablet 20 mg 20 mg, Oral, Daily, First dose (after last modification) on Tue02/01/24 at 1045 1215 (Given - Provider: Arlene Raza RN) 0848 (Given - Provider: Keyana Trimble LPN) Insulin Lispro (Humalog) injection 0-12 Units(Linked Group 1) 0-12 Units, SubCUTAneous, 3 times daily with meals, First dose on 01/28/24 at 1945, Medium Dose Correction Algorithm Glucose: Dose: LESS than 139 No Insulin 140-199 2 Unit 200-249 4 Units 250-299 6 Units 300-349 8 Units 350-400 10 Units Above 400 12 Units 0923 (Given - Provider: Keyana Trimble LPN)1133 (Given - Provider: Keyana Trimble LPN)1800 (Given - Provider: Keyana Trimble LPN) 0800 (Not Given - Provider: Arlene Raza RN - Reason: Order parameters not met)1200 (Not Given - Provider: Arlene Raza RN - Reason: Order parameters not met)1700 (Not Given - Provider: Arlene Raza RN - Reason: Order parameters not met) 0800 (Not Given - Provider: Keyana Trimble LPN - Reason: Order parameters not met)1349 (Given - Provider: Keyana Trimble LPN)1700 (Canceled Entry - Provider: Automatic Discharge Provider - Comment: Automatically canceled at discontinue of medication order) Insulin Lispro (Humalog) injection 0-12 Units(Linked Group 1) 0-12 Units, SubCUTAneous, Nightly, First dose on 01/28/24 at 2100, If continuous tube feedings/TPN/NPO, give correction dose based on result, no reduction in dose. If eating or bolus tube feeding: Medium Dose Correction Algorithm Glucose: Dose: LESS than 139 No Insulin 140-199 2 Unit 200-249 4 Units 250-299 6 Units 300-349 8 Units 350-400 10 Units Above 400 12 Units 211 (Given - Provider: Donato Hernandez RN) 2005 (Given - Provider: Donato Hernandez RN) levothyroxine (Synthroid, Levoxyl) tablet 25 mcg 25 mcg, Oral, Daily before breakfast, First dose on Tue01/29/24 at 0600, Tube feeding (TF) interaction, obtain physician order to manage, recommend holding TF for 30 minutes before and after dose. 0518 (Given - Provider: Sammi Myers RN) 0614 (Given - Provider: Donato Hernandez RN) 0608 (Given - Provider: Donato Hernandez RN) linezolid (Zyvox) tablet 600 mg 600 mg, Oral, Every 12 hours, First dose on Tue01/31/24 at 1030, Suspected Indication (Select all that apply): Skin and Soft Tissue Infection 1044 (Given - Provider: Keyana Trimble LPN)211 (Given - Provider: Donato Hernandez RN) 0916 (Given - Provider: Arlene Raza RN)2006 (Given - Provider: Donato Hernandez RN) 1159 (Given - Provider: Keyana Trimble LPN) losartan (Cozaar) tablet 25 mg 25 mg, Oral, Daily, First dose on Tue01/28/24 at 1940, On hold since Tue01/28/2024 at 1936 until manually unheld 0900 (Dose Auto Held) 0900 (Dose Auto Held) 0900 (Dose Auto Held)1711 (Unheld by provider - Provider: Automatic Discharge Provider) magnesium gluconate (Magonate) tablet 500 mg 500 mg, Oral, Daily, First dose on Tue02/01/24 at 0900 0916 (Given - Provider: Arlene Raza RN) 0848 (Given - Provider: Keyana Trimble LPN) magnesium sulfate IVPB premix 2,000 mg (COMPLETED) 2,000 mg, IntraVENous, at 25 mL/hr, Administer over 2 Hours, Once, On Tue01/31/24 at 0800, For 1 dose, Recommended infusion rate not to exceed 1,000 mg (milligrams) per hour. 0953 (New Bag - Provider: Wayne Stewart RN)1153 (Stopped - Provider: Keyana Trimble LPN) metFORMIN (Glucophage) tablet 500 mg 500 mg, Oral, 2 times daily with meals, First dose on 01/28/24 at 1940, On hold since 01/28/2024 at 1936 until manually unheld 0800 (Dose Auto Held)1700 (Dose Auto Held) 0800 (Dose Auto Held)1700 (Dose Auto Held) 0800 (Dose Auto Held)1711 (Unheld by provider - Provider: Automatic Discharge Provider) mirabegron ER (Myrbetriq) 24 hr tablet 25 mg 25 mg, Oral, Nightly, First dose on 01/28/24 at 2100, Do not crush, chew, or split., On hold since 01/29/2024 at 0707 until manually unheld 2100 (Dose Auto Held - Provider: Le Dobson MACHINE TESTER [facility]) 2100 (Dose Auto Held - Provider: Le Dobson APRN [facility]) 1711 (Unheld by provider - Provider: Automatic Discharge Provider) oxyCODONE (Roxicodone) immediate release tablet 2.5 mg (COMPLETED) 2.5 mg, Oral, Once, On Tue02/01/24 at 1845, For 1 dose 2006 (Given - Provider: Donato Hernandez RN) oxyCODONE (Roxicodone) immediate release tablet 5 mg (COMPLETED) 5 mg, Oral, Once, On Gerda 02/02/24 at 0115, For 1 dose 0129 (Given - Provider: Donato Hernandez RN) pantoprazole (ProtoNix) EC tablet 40 mg 40 mg, Oral, Daily before breakfast, First dose on 01/29/24 at 0600, Substituted for omeprazole (Prilosec). Do not crush, chew, or split. 0518 (Given - Provider: Sammi Myers RN) 0614 (Given - Provider: Donato Hernandez, JANES) 0608 (Given - Provider: Donato Hernandez RN) potassium chloride CR (Klor-Con M10) ER tablet 10 mEq 10 mEq, Oral, Daily, First dose on 01/28/24 at 1940, Best given with food and plenty of water to minimize gastric irritation. Do not crush or chew., On hold since 01/28/2024 at 1936 until manually unheld 0900 (Dose Auto Held) 0900 (Dose Auto Held) 0900 (Dose Auto Held)1711 (Unheld by provider - Provider: Automatic Discharge Provider) potassium chloride CR (Klor-Con M10) ER tablet 40 mEq (COMPLETED) 40 mEq, Oral, Once, On Tue01/31/24 at 0800, For 1 dose, Best given with food and plenty of water to minimize gastric irritation. Do not crush or chew. 0923 (Given - Provider: Keyana Trimble LPN) rosuvastatin (Crestor) tablet 20 mg 20 mg, Oral, Daily, First dose on 01/28/24 at 1940 0922 (Given - Provider: Keyana Trimble LPN) 0912 (Given - Provider: Arlene Raza RN) 0848 (Given - Provider: Keyana Trimble LPN) vitamin E capsule 180 mg 180 mg (400 Units), Oral, Daily, First dose on Tue01/29/24 at 0900 0922 (Given - Provider: Keyana Trimble LPN) 0912 (Given - Provider: Arlene Raza RN) 0848 (Given - Provider: Keyana Trimble LPN) PRN Medication Order 01/31/2024 02/01/2024 02/02/2024 acetaminophen (Tylenol) suppository 650 mg(Linked Group 2) 650 mg, Rectal, Every 6 hours PRN, mild pain (1-3), fever, For temp greater than 100.4 F (38 C), Starting on 01/28/24 at 1939, Administer if oral route cannot be used. Maximum dose of acetaminophen is 4000 mg from all sources in 24 hours. 1133 (See Alternative - Provider: Keyana Trimble LPN)1800 (See Alternative - Provider: Keyana Trimble LPN) 0921 (See Alternative - Provider: Arlene Raza RN)1615 (See Alternative - Provider: Arlene Raza RN) 0413 (See Alternative - Provider: Donato Hernandez RN)1159 (See Alternative - Provider: Keyana Trimble LPN) acetaminophen (Tylenol) tablet 650 mg(Linked Group 2) 650 mg, Oral, Every 6 hours PRN, mild pain (1-3), fever, For temp greater than 100.4 F (38 C), Starting on 01/28/24 at 1939, Maximum dose of acetaminophen is 4000 mg from all sources in 24 hours. 1133 (Given - Provider: Keyana Trimble LPN)1800 (Given - Provider: Keyana Trimble LPN) 0921 (Given - Provider: Arlene Raza RN)1615 (Given - Provider: Arlene Raza RN) 0413 (Given - Provider: Donato Hernandez, JANES)1159 (Given - Provider: Keyana Trimble LPN) albuterol (2.5 MG/3ML) 0.083% nebulizer solution 2.5 mg 2.5 mg, Nebulization, Every 4 hours PRN, wheezing, shortness of breath, Starting on 01/30/24 at 0008, Initiate RT Bronchodilator Protocol? Yes dextrose 5 % infusion 100 mL/hr, IntraVENous, PRN, Blood sugar less than 70mg/dL, Starting on 01/28/24 at 1941, Start infusion following administration of dextrose 50% or glucagon. dextrose 50 % solution 12.5 g 12.5 g, IntraVENous, PRN, low blood sugar, Blood glucose less than 70 mg/dL and patient NOT ALERT or NPO., Starting on 01/28/24 at 194, If patient does not respond within 5 minutes, repeat dose x1. Start D5W at 100 mL/hour until ordering provider can be reached. Repeat blood glucose in 15 minutes. If blood glucose is less than 70 mg/dL, repeat treatment and recheck blood glucose in 15 minutes x2. If using Glucostabilizer, dose as instructed per system. furosemide (Lasix) tablet 20 mg (CANCELED) 20 mg, Oral, Daily PRN, SOB/Weight Gain, Starting on 01/28/24 at 1935 0531 (Given - Provider: Sammi Myers RN) glucagon (human recombinant) injection 1 mg 1 mg, IntraMUSCular, PRN, low blood sugar, Blood glucose less than 70 mg/dL and patient NOT ALERT or NPO and does not have IV access., Starting on 01/28/24 at 1941, After administration, attempt intravenous access and start D5W at 100 mL/hr. Repeat blood glucose in 15 minutes x2 and notify provider. glucose oral gel 15 g 15 g, Oral, As needed, low blood sugar, Starting on 01/28/24 at 1941, If blood glucose less than 50 mg/dL and patient ALERT and NOT NPO, give 2 tubes glucose gel. If blood glucose less than 70 mg/dL and patient ALERT and NOT NPO, give 1 tube glucose gel. Repeat blood glucose in 15 minutes. If blood glucose is less than 70 mg/dL, repeat treatment and recheck blood glucose in 15 minutes x2 and notify provider. ondansetron (Zofran) injection 4 mg(Linked Group 3) 4 mg, IntraVENous, Every 6 hours PRN, nausea, vomiting, Starting on 01/28/24 at 1939, 1st Line. Give IV if patient is unable to take orally. If inadequate response within 60 minutes, proceed to next-line agent or contact provider if no further options ordered. ondansetron ODT (Zofran-ODT) disintegrating tablet 4 mg(Linked Group 3) 4 mg, Oral, Every 8 hours PRN, nausea, vomiting, Starting on 01/28/24 at 1939, 1st Line. If inadequate response within 60 minutes, proceed to next-line agent or contact provider if no further options ordered. Patient should allow tablet to dissolve on tongue. Do not remove from blister pack until just before administering. polyethylene glycol (PEG) 3350 (Miralax) packet 17 g 17 g, Oral, Daily PRN, constipation, Starting on 01/28/24 at 193, 1st line for treatment of constipation - give scheduled if no bowel movement in past 24 hours. 0129 (Given - Provider: Donato Hernandez RN) Linked Groups Order Group 1: Insulin Lispro (Humalog) injection 0-12 UnitsJump to med 0-12 Units, SubCUTAneous, 3 times daily with meals, First dose on 01/28/24 at 1945, Medium Dose Correction Algorithm Glucose: Dose: LESS than 139 No Insulin 140-199 2 Unit 200-249 4 Units 250-299 6 Units 300-349 8 Units 350-400 10 Units Above 400 12 Units And Insulin Lispro (Humalog) injection 0-12 UnitsJump to med 0-12 Units, SubCUTAneous, Nightly, First dose on 01/28/24 at 2100, If continuous tube feedings/TPN/NPO, give correction dose based on result, no reduction in dose. If eating or bolus tube feeding: Medium Dose Correction Algorithm Glucose: Dose: LESS than 139 No Insulin 140-199 2 Unit 200-249 4 Units 250-299 6 Units 300-349 8 Units 350-400 10 Units Above 400 12 Units Group 2: acetaminophen (Tylenol) tablet 650 mgJump to med 650 mg, Oral, Every 6 hours PRN, mild pain (1-3), fever, For temp greater than 100.4 F (38 C), Starting on 01/28/24 at 1939, Maximum dose of acetaminophen is 4000 mg from all sources in 24 hours. Or acetaminophen (Tylenol) suppository 650 mgJump to med 650 mg, Rectal, Every 6 hours PRN, mild pain (1-3), fever, For temp greater than 100.4 F (38 C), Starting on 01/28/24 at 1939, Administer if oral route cannot be used. Maximum dose of acetaminophen is 4000 mg from all sources in 24 hours. Group 3: ondansetron ODT (Zofran-ODT) disintegrating tablet 4 mgJump to med 4 mg, Oral, Every 8 hours PRN, nausea, vomiting, Starting on 01/28/24 at 1939, 1st Line. If inadequate response within 60 minutes, proceed to next-line agent or contact provider if no further options ordered. Patient should allow tablet to dissolve on tongue. Do not remove from blister pack until just before administering. Or ondansetron (Zofran) injection 4 mgJump to med 4 mg, IntraVENous, Every 6 hours PRN, nausea, vomiting, Starting on 01/28/24 at 1939, 1st Line. Give IV if patient is unable to take orally. If inadequate response within 60 minutes, proceed to next-line agent or contact provider if no further options ordered. Scheduled Medication Order 05/30/2024 05/31/2024 06/01/2024 aspirin EC tablet 81 mg 81 mg, Oral, Daily, First dose on Tue05/30/24 at 0900, Do not crush, chew, or split. 0821 (Given - Provider: Jade Baptiste RN) 09 (Given - Provider: Krunal Feng RN) 0900 (Given - Provider: Krunal Feng RN) cyanocobalamin (Vitamin B-12) tablet 100 mcg 100 mcg, Oral, Daily, First dose on Tue05/30/24 at 0900 0821 (Given - Provider: Jade Baptiste RN) 0905 (Given - Provider: Krunal Feng RN) 0900 (Given - Provider: Krunal Feng RN) enoxaparin (Lovenox) syringe 30 mg 30 mg, SubCUTAneous, Every 24 hours scheduled (Daily), First dose on Tue05/30/24 at 0900, Renal dosing, Indication of Use: Prophylaxis-DVT/PE, Indications: Prophylaxis of Venous Thromboembolism, On hold since Tue05/30/2024 at 1700 until manually unheld 0821 (Given - Provider: Jade Baptiste RN)1700 (Held by provider - Provider: Singh Murguia MD - Reason: Other) 0900 (Dose Auto Held - Provider: Singh Murguia MD) 0900 (Dose Auto Held - Provider: Singh Murguia MD)1822 (Unheld by provider - Provider: Automatic Discharge Provider) ferrous sulfate tablet 325 mg 325 mg, Oral, Daily with breakfast, First dose on Tue05/30/24 at 0800 0821 (Given - Provider: Jade Baptiste RN) 0904 (Given - Provider: Krunal Feng RN) 0900 (Given - Provider: Krunal Feng RN) Insulin Lispro (Humalog) injection 0-6 Units(Linked Group 1) 0-6 Units, SubCUTAneous, 3 times daily with meals, First dose on Tue05/30/24 at 0800, Low Dose Correction Algorithm Glucose: Dose: LESS than 139 No Insulin 140-199 1 Unit 200-249 2 Units 250-299 3 Units 300-349 4 Units 350-400 5 Units Above 400 6 Units 0800 (Not Given - Provider: Jade Baptiste RN - Reason: Order parameters not met)1353 (Given - Provider: Jade Baptiste RN)1717 (Given - Provider: Jade Baptiste RN) 0800 (Not Given - Provider: Krunal Feng RN - Reason: Order parameters not met)1200 (Not Given - Provider: Krunal Feng RN - Reason: Order parameters not met)1700 (Not Given - Provider: Krunal Feng RN - Reason: Order parameters not met - Comment: bgt [id number]) 0901 (Given - Provider: Krunal Feng RN)1145 (Given - Provider: Krunal Feng RN)1700 (Canceled Entry - Provider: Automatic Discharge Provider - Comment: Automatically canceled at discontinue of medication order) Insulin Lispro (Humalog) injection 0-6 Units(Linked Group 1) 0-6 Units, SubCUTAneous, Nightly, First dose on Tue05/29/24 at 2100, If continuous tube feedings/TPN/NPO, give correction dose based on result, no reduction in dose. If eating or bolus tube feeding: Low Dose Correction Algorithm Glucose: Dose: LESS than 139 No Insulin 140-199 1 Unit 200-249 2 Units 250-299 3 Units 300-349 4 Units 350-400 5 Units Above 400 6 Units 2150 (Given - Provider: Zbigniew Rivera RN) 210 (Given - Provider: Zbigniew Rivera RN) levothyroxine (Synthroid, Levoxyl) tablet 50 mcg 50 mcg, Oral, Daily before breakfast, First dose on Tue05/30/24 at 0600, Tube feeding (TF) interaction, obtain physician order to manage, recommend holding TF for 30 minutes before and after dose. 0532 (Given - Provider: Amanda Irving RN) 0556 (Given - Provider: Zbigniew Rivera RN) 0508 (Given - Provider: Zbigniew Rivera RN) linaGLIPtin (Tradjenta) tablet 5 mg 5 mg, Oral, Daily, First dose on Tue05/30/24 at 0900, Substituted for SITagliptin (JANUVIA)., On hold since Tue05/30/2024 at 1700 until manually unheld 0900 (Given - Provider: Jade Baptiste RN)1700 (Held by provider - Provider: Singh Murguia MD - Reason: Other) 0900 (Dose Auto Held - Provider: Singh Murguia MD) 0900 (Dose Auto Held - Provider: Singh Murguia MD)1822 (Unheld by provider - Provider: Automatic Discharge Provider) pantoprazole (ProtoNix) EC tablet 40 mg 40 mg, Oral, Daily before breakfast, First dose on Tue05/30/24 at 0600, Substituted for omeprazole (Prilosec). Do not crush, chew, or split. 0532 (Given - Provider: Amanda Irving RN) 0556 (Given - Provider: Zbigniew Rivera RN) 0508 (Given - Provider: Zbigniew Rivera RN) rosuvastatin (Crestor) tablet 20 mg 20 mg, Oral, Daily, First dose on Tue05/30/24 at 0900 0821 (Given - Provider: Jade Baptiste RN) 0905 (Given - Provider: Krunal Feng RN) 0900 (Given - Provider: Krunal Feng RN) vancomycin IVPB 1000 mg in 200 mL NS (premix) (COMPLETED) 1,000 mg, IntraVENous, at 133.3 mL/hr, Administer over 90 Minutes, Once, On Gerda 05/31/24 at 0830, For 1 dose, Preprocedure, Please send to EP lab premix bag, Suspected Indication (Select all that apply): Surgical Prophylaxis 1355 (New Bag - Provider: Heidi Henry)1525 (Stopped - Provider: Krunal Feng RN) PRN Medication Order 05/30/2024 05/31/2024 06/01/2024 acetaminophen (Tylenol) suppository 650 mg(Linked Group 2) 650 mg, Rectal, Every 6 hours PRN, mild pain (1-3), fever, For temp greater than 100.4 F (38 C), Starting on Tue05/30/24 at 0053, Administer if oral route cannot be used. Maximum dose of acetaminophen is 4000 mg from all sources in 24 hours. 2036 (See Alternative - Provider: Zbigniew Rivera RN) 09 (See Alternative - Provider: Krunla Feng RN)191 (See Alternative - Provider: Krunal Feng RN) 0513 (See Alternative - Provider: Zbigniew Rivera RN) acetaminophen (Tylenol) tablet 650 mg(Linked Group 2) 650 mg, Oral, Every 6 hours PRN, mild pain (1-3), fever, For temp greater than 100.4 F (38 C), Starting on Tue05/30/24 at 0053, Maximum dose of acetaminophen is 4000 mg from all sources in 24 hours. 2036 (Given - Provider: Zbigniew Rivera RN) 0907 (Given - Provider: Krunal Feng RN)191 (Given - Provider: Krunal Feng RN) 0513 (Given - Provider: Zbigniew Rivera RN) aluminum & magnesium hydroxide-simethicone (Mylanta) 200-200-20 MG/5ML oral suspension 20 mL(Linked Group 3) 20 mL, Oral, Every 6 hours PRN, indigestion, heartburn, Starting on Tue05/29/24 at 2353 0002 (See Alternative - Provider: Amanda Irving, JANES) bupivacaine PF (Marcaine) 0.5 % injection (CANCELED) As needed, Starting on Tue05/31/24 at 1414, Intraprocedure 1414 (Given - Provider: Pravin Poole MD) calcium carbonate (Tums) chewable tablet 1,000 mg(Linked Group 3) 1,000 mg, Oral, Every 6 hours PRN, indigestion, heartburn, Starting on Tue05/29/24 at 2353 0002 (Given - Provider: Amanda Irving, JANES) dextrose 5 % infusion 100 mL/hr, IntraVENous, PRN, Blood sugar less than 70mg/dL, Starting on Tue05/29/24 at 2053, Start infusion following administration of dextrose 50% or glucagon. dextrose 50 % solution 12.5 g 12.5 g, IntraVENous, PRN, low blood sugar, Blood glucose less than 70 mg/dL and patient NOT ALERT or NPO., Starting on Tue05/29/24 at 2053, If patient does not respond within 5 minutes, repeat dose x1. Start D5W at 100 mL/hour until ordering provider can be reached. Repeat blood glucose in 15 minutes. If blood glucose is less than 70 mg/dL, repeat treatment and recheck blood glucose in 15 minutes x2. If using Glucostabilizer, dose as instructed per system. fentaNYL (Sublimaze) injection (CANCELED) IntraVENous, As needed, Starting on Tue05/31/24 at 1404, Intraprocedure 1404 (Given - Provider: Heidi Henry) gentamicin (Garamycin) 80 mg in sodium chloride 0.9 % 100 mL irrigation (CANCELED) Irrigation, As needed, Starting on Tue05/31/24 at 1443, Intraprocedure 1443 (Given - Provider: Pravin Poole MD) glucagon (human recombinant) injection 1 mg 1 mg, IntraMUSCular, PRN, low blood sugar, Blood glucose less than 70 mg/dL and patient NOT ALERT or NPO and does not have IV access., Starting on Tue05/29/24 at 2053, After administration, attempt intravenous access and start D5W at 100 mL/hr. Repeat blood glucose in 15 minutes x2 and notify provider. glucose oral gel 15 g 15 g, Oral, As needed, low blood sugar, Starting on Tue05/29/24 at 2053, If blood glucose less than 50 mg/dL and patient ALERT and NOT NPO, give 2 tubes glucose gel. If blood glucose less than 70 mg/dL and patient ALERT and NOT NPO, give 1 tube glucose gel. Repeat blood glucose in 15 minutes. If blood glucose is less than 70 mg/dL, repeat treatment and recheck blood glucose in 15 minutes x2 and notify provider. lidocaine (Xylocaine) 2 % injection (CANCELED) Infiltration, As needed, Starting on Tue05/31/24 at 1415, Intraprocedure 1415 (Given - Provider: Pravin Poole MD) midazolam (Versed) injection (CANCELED) IntraVENous, As needed, Starting on Tue05/31/24 at 1404, Intraprocedure 1404 (Given - Provider: Heidi Henry) ondansetron (Zofran) injection 4 mg(Linked Group 4) 4 mg, IntraVENous, Every 6 hours PRN, nausea, vomiting, Starting on Tue05/30/24 at 0053, 1st Line. Give IV if patient is unable to take orally. If inadequate response within 60 minutes, proceed to next-line agent or contact provider if no further options ordered. 0535 (See Alternative - Provider: Amanda Irving RN) ondansetron ODT (Zofran-ODT) disintegrating tablet 4 mg(Linked Group 4) 4 mg, Oral, Every 8 hours PRN, nausea, vomiting, Starting on Tue05/30/24 at 0053, 1st Line. If inadequate response within 60 minutes, proceed to next-line agent or contact provider if no further options ordered. Patient should allow tablet to dissolve on tongue. Do not remove from blister pack until just before administering. 0535 (Given - Provider: Amanda Irving RN) polyethylene glycol (PEG) 3350 (Miralax) packet 17 g 17 g, Oral, Daily PRN, constipation, Starting on Tue05/30/24 at 0053, 1st line for treatment of constipation - give scheduled if no bowel movement in past 24 hours. trolamine salicylate (Mobisyl) 10 % cream Topical, Every 8 hours PRN, for muscle pain, Starting on Tue05/31/24 at 2122, Drug Name: Mobisyl, Form: cream, Length of Therapy: Indefinite, How soon needed? (normally 72 hrs needed to procure): 0-24 hrs, Reason for Non-Formulary: not formulary Linked Groups Order Group 1: Insulin Lispro (Humalog) injection 0-6 UnitsJump to med 0-6 Units, SubCUTAneous, 3 times daily with meals, First dose on Tue05/30/24 at 0800, Low Dose Correction Algorithm Glucose: Dose: LESS than 139 No Insulin 140-199 1 Unit 200-249 2 Units 250-299 3 Units 300-349 4 Units 350-400 5 Units Above 400 6 Units And Insulin Lispro (Humalog) injection 0-6 UnitsJump to med 0-6 Units, SubCUTAneous, Nightly, First dose on Tue05/29/24 at 2100, If continuous tube feedings/TPN/NPO, give correction dose based on result, no reduction in dose. If eating or bolus tube feeding: Low Dose Correction Algorithm Glucose: Dose: LESS than 139 No Insulin 140-199 1 Unit 200-249 2 Units 250-299 3 Units 300-349 4 Units 350-400 5 Units Above 400 6 Units Group 2: acetaminophen (Tylenol) tablet 650 mgJump to med 650 mg, Oral, Every 6 hours PRN, mild pain (1-3), fever, For temp greater than 100.4 F (38 C), Starting on Tue05/30/24 at 0053, Maximum dose of acetaminophen is 4000 mg from all sources in 24 hours. Or acetaminophen (Tylenol) suppository 650 mgJump to med 650 mg, Rectal, Every 6 hours PRN, mild pain (1-3), fever, For temp greater than 100.4 F (38 C), Starting on Tue05/30/24 at 0053, Administer if oral route cannot be used. Maximum dose of acetaminophen is 4000 mg from all sources in 24 hours. Group 3: aluminum & magnesium hydroxide-simethicone (Mylanta) 200-200-20 MG/5ML oral suspension 20 mLJump to med 20 mL, Oral, Every 6 hours PRN, indigestion, heartburn, Starting on Tue05/29/24 at 2353 Or calcium carbonate (Tums) chewable tablet 1,000 mgJump to med 1,000 mg, Oral, Every 6 hours PRN, indigestion, heartburn, Starting on Tue05/29/24 at 2353 Group 4: ondansetron ODT (Zofran-ODT) disintegrating tablet 4 mgJump to med 4 mg, Oral, Every 8 hours PRN, nausea, vomiting, Starting on Tue05/30/24 at 0053, 1st Line. If inadequate response within 60 minutes, proceed to next-line agent or contact provider if no further options ordered. Patient should allow tablet to dissolve on tongue. Do not remove from blister pack until just before administering. Or ondansetron (Zofran) injection 4 mgJump to med 4 mg, IntraVENous, Every 6 hours PRN, nausea, vomiting, Starting on Tue05/30/24 at 0053, 1st Line. Give IV if patient is unable to take orally. If inadequate response within 60 minutes, proceed to next-line agent or contact provider if no further options ordered. Scheduled Medication Order 07/02/2024 07/03/2024 07/04/2024 aspirin EC tablet 81 mg 81 mg, Oral, Daily, First dose on Tue06/26/24 at 0900, Do not crush, chew, or split., On hold since Tue06/26/2024 at 2131 until manually unheld 0900 (Dose Auto Held) 0900 (Dose Auto Held) 0900 (Dose Auto Held)1454 (Unheld by provider - Provider: Automatic Discharge Provider) cholecalciferol (Vitamin D-3) tablet 5,000 Units 5,000 Units, Oral, Daily, First dose on Tue06/26/24 at 0900 0925 (Given - Provider: Marine Ennis RN) 0904 (Given - Provider: Kelly Cunningham RN) 0847 (Given - Provider: uLanne Ospina RN) cyanocobalamin (Vitamin B-12) tablet 100 mcg 100 mcg, Oral, Daily, First dose on Tue06/26/24 at 0900 0925 (Given - Provider: Marine Ennis RN) 0902 (Given - Provider: Kelly Cunningham RN) 0846 (Given - Provider: Luanne Ospina RN) ferrous sulfate tablet 325 mg 325 mg, Oral, Daily with breakfast, First dose on Tue06/26/24 at 0800 0925 (Given - Provider: Marine Ennis RN) 0902 (Given - Provider: Kelly Cunningham RN) 0846 (Given - Provider: Luanne Ospina RN) influenza vaccine A&B surf ant adjuvanted (Fluad) HIGH-DOSE injection 0.5 mL 0.5 mL, IntraMUSCular, Prior to discharge, Starting on Tue06/26/24 at 0900, For 1 dose Insulin Lispro (Humalog) injection 0-12 Units(Linked Group 1) 0-12 Units, SubCUTAneous, 4 times daily before meals & nightly, First dose (after last modification) on Tue06/29/24 at 1700, Medium Dose Correction Algorithm Glucose: Dose: LESS than 150 No Insulin 150-199 2 Units 200-249 4 Units 250-299 6 Units 300-349 8 Units 350-400 10 Units Above 400 12 Units 0800 (Not Given - Provider: Marine Ennis RN - Reason: Order parameters not met)1200 (Not Given - Provider: Marine Ennis RN - Reason: Patient/family refused)1713 (Given - Provider: Marine Ennis RN)2005 (Given - Provider: Nazia Infante RN) 0800 (Not Given - Provider: Kelly Cunningham RN - Reason: Order parameters not met - Comment: BS 105)1226 (Given - Provider: Kelly Cunningham RN)1816 (Given - Provider: Kelly Cunningham RN)2108 (Given - Provider: Sidney Malave RN) 0800 (Not Given - Provider: Luanne Ospina RN - Reason: Order parameters not met)1200 (Canceled Entry - Provider: Automatic Discharge Provider - Comment: Automatically canceled at discontinue of medication order) lactulose (Chronulac) 10 GM/15ML solution 20 g 20 g, Oral, 3 times daily, First dose on Tue06/26/24 at 1000 0926 (Given - Provider: Marine Ennis RN)1713 (Given - Provider: Marine Ennis RN)2004 (Given - Provider: Nazia Infante RN) 09 (Given - Provider: Kelly Cunningham, JANES)1529 (Given - Provider: Kelly Cunningham RN)2100 (Not Given - Provider: Sidney Malave RN - Reason: Patient/family refused) 0900 (Not Given - Provider: Luanne Ospina RN - Reason: Patient/family refused)1400 (Canceled Entry - Provider: Automatic Discharge Provider - Comment: Automatically canceled at discontinue of medication order) levothyroxine (Synthroid, Levoxyl) tablet 50 mcg 50 mcg, Oral, Daily before breakfast, First dose on Tue06/26/24 at 0600, Tube feeding (TF) interaction, obtain physician order to manage, recommend holding TF for 30 minutes before and after dose. 0525 (Given - Provider: Nazia Infante RN) 0559 (Given - Provider: Nazia Infante RN) 0432 (Given - Provider: Sidney Malave RN) linaGLIPtin (Tradjenta) tablet 5 mg 5 mg, Oral, Daily, First dose on Tue06/26/24 at 0900, Substituted for SITagliptin (JANUVIA). 0925 (Given - Provider: Marine Ennis RN) 0902 (Given - Provider: Kelly Cunningham RN) 0846 (Given - Provider: Luanne Ospina RN) pantoprazole (ProtoNix) 40 mg in sodium chloride (PF) 0.9 % 10 mL injection(Linked Group 2) 40 mg, IntraVENous, Administer over 2 Minutes, Nightly, First dose on Tue06/26/24 at 2100, Give only if unable to tolerate po. 2004 (See Alternative - Provider: Nazia Infante RN) 2107 (See Alternative - Provider: Sidney Malave RN) pantoprazole (ProtoNix) EC tablet 40 mg(Linked Group 2) 40 mg, Oral, Nightly, First dose on Tue06/26/24 at 2100, Do not crush, chew, or split. 2004 (Given - Provider: Nazia Infante RN) 2107 (Given - Provider: Sidney Malave RN) Potassium Bicarb-Citric Acid (Effer-K) effervescent tablet 30 mEq 30 mEq, Oral, Daily, First dose on Tue06/27/24 at 0900, Completely dissolve tablets in 4 ounces (115mL) of water before administering. 0926 (Given - Provider: Marine Ennis RN) 0904 (Given - Provider: Kelly Cunningham, JANES) 0847 (Given - Provider: Luanne Ospina, JANES) rosuvastatin (Crestor) tablet 20 mg 20 mg, Oral, Daily, First dose on Tue06/26/24 at 0900 0925 (Given - Provider: Marine Ennis RN) 0902 (Given - Provider: Kelly Cunningham, JANES) 0846 (Given - Provider: Luanne Ospina RN) sodium chloride 0.9% (NS) flush 5-40 mL 5-40 mL, IntraVENous, Every 12 hours, First dose on Tue06/25/24 at 1730, For Line Patency: Peripheral IV = 5 mL; Midline or Central Line = 10 mL/lumen. If following IV push medication, administer flush at same rate as the IV push. Flush volume is determined by type of infusion therapy being given. For non-viscous solutions use: Peripheral IV = 5 mL Midline or Central Line = 10 mL/lumen For viscous solutions (i.e. blood components, parenteral nutrition, contrast media, or after obtaining blood sample) use: Peripheral IV = 10 mL Midline or Central Line = 20 mL/lumen 09 (Not Given - Provider: Marine Ennis RN - Reason: IV Fluids Infusing)2151 (Given - Provider: Nazia Infante RN) 902 (Not Given - Provider: Kelly Cunningham RN - Reason: IV Fluids Infusing)2111 (Given - Provider: Sidney Malave RN) 09 (Not Given - Provider: Luanne Ospina RN - Reason: Other) PRN Medication Order 07/02/2024 07/03/2024 07/04/2024 acetaminophen (Tylenol) suppository 650 mg(Linked Group 3) 650 mg, Rectal, Every 6 hours PRN, mild pain (1-3), fever, For temp greater than 100.4 F (38 C), Starting on Tue06/25/24 at 2147, Administer if oral route cannot be used. Maximum dose of acetaminophen is 4000 mg from all sources in 24 hours. 2151 (See Alternative - Provider: Nazia Infante RN) 1837 (See Alternative - Provider: Kelly Cunningham, JANES) acetaminophen (Tylenol) tablet 650 mg(Linked Group 3) 650 mg, Oral, Every 6 hours PRN, mild pain (1-3), fever, For temp greater than 100.4 F (38 C), Starting on Tue06/25/24 at 2147, Maximum dose of acetaminophen is 4000 mg from all sources in 24 hours. 2151 (Given - Provider: Nazia Infante RN) 1837 (Given - Provider: Kelly Cunningham, JANES) dextromethorphan-guaiFENesi n (Mucinex DM) 30-600 MG per 12 hr tablet 1 tablet 1 tablet, Oral, 2 times daily PRN, cough, Starting on Tue07/01/24 at 0908, Do not crush, chew, or split. dextrose 5 % infusion 100 mL/hr, IntraVENous, PRN, Blood sugar less than 70mg/dL, Starting on Tue06/25/24 at 2147, Start infusion following administration of dextrose 50% or glucagon. dextrose 50 % solution 12.5 g 12.5 g, IntraVENous, PRN, low blood sugar, Blood glucose less than 70 mg/dL and patient NOT ALERT or NPO., Starting on Tue06/25/24 at 2147, If patient does not respond within 5 minutes, repeat dose x1. Start D5W at 100 mL/hour until ordering provider can be reached. Repeat blood glucose in 15 minutes. If blood glucose is less than 70 mg/dL, repeat treatment and recheck blood glucose in 15 minutes x2. If using Glucostabilizer, dose as instructed per system. glucagon (human recombinant) injection 1 mg 1 mg, IntraMUSCular, PRN, low blood sugar, Blood glucose less than 70 mg/dL and patient NOT ALERT or NPO and does not have IV access., Starting on Tue06/25/24 at 2147, After administration, attempt intravenous access and start D5W at 100 mL/hr. Repeat blood glucose in 15 minutes x2 and notify provider. glucose oral gel 15 g 15 g, Oral, As needed, low blood sugar, Starting on Tue06/25/24 at 2147, If blood glucose less than 50 mg/dL and patient ALERT and NOT NPO, give 2 tubes glucose gel. If blood glucose less than 70 mg/dL and patient ALERT and NOT NPO, give 1 tube glucose gel. Repeat blood glucose in 15 minutes. If blood glucose is less than 70 mg/dL, repeat treatment and recheck blood glucose in 15 minutes x2 and notify provider. ipratropium-albuterol (Duo-Neb) 0.5-2.5 mg/3 mL nebulizer solution 3 mL 3 mL, Nebulization, Every 4 hours PRN, wheezing, Starting on Tue06/26/24 at 2045 labetalol (Normodyne,Trandate) injection 20 mg 20 mg, IntraVENous, Every 6 hours PRN, high blood pressure, Starting on Tue06/29/24 at 0703, If SBP > 150 MMHG naloxone (Narcan) injection 0.4 mg 0.4 mg, IntraVENous, Every 5 min PRN, opioid reversal, respiratory depression, Starting on Tue07/01/24 at 2107, +++ For RR <10, pinpoint pupils, over sedation for opioid reversal - MUST notify assistant plant controller provider immediately after first dose, may give IM or SQ if no IV access +++ ondansetron (Zofran) injection 4 mg(Linked Group 4) 4 mg, IntraVENous, Every 6 hours PRN, nausea, vomiting, Starting on Tue06/25/24 at 2147, 1st Line. Give IV if patient is unable to take orally. If inadequate response within 60 minutes, proceed to next-line agent or contact provider if no further options ordered. ondansetron ODT (Zofran-ODT) disintegrating tablet 4 mg(Linked Group 4) 4 mg, Oral, Every 8 hours PRN, nausea, vomiting, Starting on Tue06/25/24 at 2147, 1st Line. If inadequate response within 60 minutes, proceed to next-line agent or contact provider if no further options ordered. Patient should allow tablet to dissolve on tongue. Do not remove from blister pack until just before administering. oxyCODONE (Roxicodone) immediate release tablet 2.5 mg 2.5 mg, Oral, Every 6 hours PRN, moderate pain (4-6), severe pain (7-10), Starting on Tue07/01/24 at 2100 2005 (Given - Provider: Nazia Infante, RN) 210 (Given - Provider: Sidney Malave, JANES) polyethylene glycol (PEG) 3350 (Miralax) packet 17 g 17 g, Oral, Daily PRN, constipation, Starting on Tue06/25/24 at 2147, 1st line for treatment of constipation - give scheduled if no bowel movement in past 24 hours. sodium chloride (Challis) 0.65 % nasal spray 1 spray 1 spray, Each Nostril, Every 2 hour PRN, congestion, Starting on Tue06/30/24 at 0648 0926 (Given - Provider: Marine Ennis RN) sodium chloride 0.9 % infusion 5-250 mL/hr, IntraVENous, PRN, if patient receiving piggyback infusions and maintenance fluids are not ordered OR KVO fluids to protect IV site / prevent frequent line interruptions / long duration, Starting on Tue06/25/24 at 1726, For piggyback infusion, administer at same rate as piggyback for a total of 25 mL. Enter 25 mL into dose field and piggyback rate into rate field of order. If piggyback is infusing at a rate less than 100 mL/hr, enter 25 mL into dose field and 100 mL/hr into rate field of order. For KVO fluids, enter rate of 20 mL/hr or less into rate field of order. sodium chloride 0.9 % infusion 250 mL/hr, IntraVENous, Administer over 10 Minutes, As needed, For use in priming line prior to transfusion (prime via gravity) and flush line post transfusion, Starting on Tue06/26/24 at 1742, For 1 dose, For use in priming line prior to transfusion (prime via gravity) and flush line post transfusion ONLY. Discontinue once line has been cleared of remaining blood product. sodium chloride 0.9 % infusion 250 mL/hr, IntraVENous, Administer over 10 Minutes, As needed, For use in priming line prior to transfusion (prime via gravity) and flush line post transfusion, Starting on Tue06/26/24 at 1816, For 1 dose, For use in priming line prior to transfusion (prime via gravity) and flush line post transfusion ONLY. Discontinue once line has been cleared of remaining blood product. sodium chloride 0.9% (NS) flush 5-40 mL 5-40 mL, IntraVENous, PRN, line care, After every IV line use, Starting on Tue06/25/24 at 1726, For Line Patency: Peripheral IV = 5 mL; Midline or Central Line = 10 mL/lumen. If following IV push medication, administer flush at same rate as the IV push. Flush volume is determined by type of infusion therapy being given. For non-viscous solutions use: Peripheral IV = 5 mL Midline or Central Line = 10 mL/lumen For viscous solutions (i.e. blood components, parenteral nutrition, contrast media, or after obtaining blood sample) use: Peripheral IV = 10 mL Midline or Central Line = 20 mL/lumen Linked Groups Order Group 1: Insulin Lispro (Humalog) injection 0-12 UnitsJump to med 0-12 Units, SubCUTAneous, 4 times daily before meals & nightly, First dose (after last modification) on Tue06/29/24 at 1700, Medium Dose Correction Algorithm Glucose: Dose: LESS than 150 No Insulin 150-199 2 Units 200-249 4 Units 250-299 6 Units 300-349 8 Units 350-400 10 Units Above 400 12 Units Group 2: pantoprazole (ProtoNix) EC tablet 40 mgJump to med 40 mg, Oral, Nightly, First dose on Tue06/26/24 at 2100, Do not crush, chew, or split. Or pantoprazole (ProtoNix) 40 mg in sodium chloride (PF) 0.9 % 10 mL injectionJump to med 40 mg, IntraVENous, Administer over 2 Minutes, Nightly, First dose on Tue06/26/24 at 2100, Give only if unable to tolerate po. Group 3: acetaminophen (Tylenol) tablet 650 mgJump to med 650 mg, Oral, Every 6 hours PRN, mild pain (1-3), fever, For temp greater than 100.4 F (38 C), Starting on Tue06/25/24 at 2147, Maximum dose of acetaminophen is 4000 mg from all sources in 24 hours. Or acetaminophen (Tylenol) suppository 650 mgJump to med 650 mg, Rectal, Every 6 hours PRN, mild pain (1-3), fever, For temp greater than 100.4 F (38 C), Starting on Tue06/25/24 at 2147, Administer if oral route cannot be used. Maximum dose of acetaminophen is 4000 mg from all sources in 24 hours. Group 4: ondansetron ODT (Zofran-ODT) disintegrating tablet 4 mgJump to med 4 mg, Oral, Every 8 hours PRN, nausea, vomiting, Starting on 06/25/24 at 2147, 1st Line. If inadequate response within 60 minutes, proceed to next-line agent or contact provider if no further options ordered. Patient should allow tablet to dissolve on tongue. Do not remove from blister pack until just before administering. Or ondansetron (Zofran) injection 4 mgJump to med 4 mg, IntraVENous, Every 6 hours PRN, nausea, vomiting, Starting on 06/25/24 at 2147, 1st Line. Give IV if patient is unable to take orally. If inadequate response within 60 minutes, proceed to next-line agent or contact provider if no further options ordered. INFORMATION SOURCE (unrecogn ized section and content) DATE CREATED AUTHOR 12/23/2021 [employer] DATE CREATED AUTHOR AUTHOR'S ORGANIZ ATION 12/31/2021 [facility] DATE CREATED AUTHOR AUTHOR'S ORGANIZ ATION 11/10/2022 [facility] DATE CREATED AUTHOR AUTHOR'S ORGANIZ ATION 08/05/2024 [facility] DATE CREATED AUTHOR AUTHOR'S ORGANIZ ATION 01/21/2025 [facility] [employer] [facility] DATE CREATED AUTHOR AUTHOR'S ORGANIZ ATION 01/27/2025 [facility] Goals (unrecognized section and content) Goals may be documented in a n alternate sectionGoals may be documented in an alternate sectionGoals may be documented in an alternate sectionGoals may be documented in an alternate section FOR RECORDS PERTAINING TO PATIENTS WHO ARE OR HAVE BEEN ENROLLED IN A CHEMICAL DEPENDENCY/SUBSTANCEABUSE PROGRAM, SOME INFORMATION MAY BE OMITTED. This clinical summary was aggregated from multiple sources. Caution should be exercised in using it in the provision of clinical care. This summary normalizes information from multiple sources, and as a consequence, information in this document may materially change the coding, format and clinical context of patient data. In addition, data may be omitted in some cases. CLINICAL DECISIONS SHOULD BE BASED ON THE PRIMARY CLINICAL RECORDS. [employer] [facility]. provides no warranty or guarantee of the accuracy or completeness of information in this document.
--- OUTSIDE RECORDS SUMMARY | 2025-02-05 04:32 | XMS RPT_ITS | CCD ---
Author Organization [facility] Care Team Providers Care 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 Name Role Phone Komal Cohn Primary Care Provider Komal Cohn DO Primary Care Provid er Komal Cohn DO Unavailable Guido RN, Sue Unavailable Unavailable Latonya Rosado RN Unavailable Unavailable [facility] DO [place] Primary Care Provider Lalit TSE [place] Primary Care Provider Lalit TSE [place] Primary Care Provider Adin Elias CNP Primary Care Provider KOMAL COHN Attending Joseph COHN [place] Primary Care Joseph COHN [place] Attending Varshavavicenta labanna COHN [place] Primary Care Unalien COHN [place] Attending Joseph COHN [place] Primary Care Unavavicenta labanna COHN [place] Primary Care Unavavicenta labanna COHN KOMAL MARYAN Attending Unavavicenta labanna COHN [place] Primary Care Unavavicenta labanna COHN [place] Attending Unavavicenta labanna COHN, [place]ARY[place] Primary Care Unavavicenta labanna COHN [place] Attending Joseph Olmedo MD, Julieth Attending Provider Unavailable Shara BRUNNER, Julieth Referring Provider Unavailable Shara BRUNNER, Julieth Attending Provider Unavailable Shara BRUNNER, Julieth Attending Provider Unavailable Shara RBUNNER, Julieth Referring Provider Unavailable Julieth Olmedo DO Primary Care Provider [facility] Unavailable MUKKAMALLA, MAHAVEER Admitting Unavailable ERICKSON, MANSUMEET Consulting Unavailable LISA, TERENCE Attending Unavailable [facility] Unavailable KERI, ERINN Admitting Unavailable BONYCONNOR BORDENAN Attending Unavailable [facility] Care Unavailable MATTHEW MORILLO Admitting Unavailable MAGALY, ARIADNE N Attending Unavailab WIL Sapp Consulting Unavailable [facility] Unavailable [facility] Unavailable STRINGER MASROOR Referring Unavailable [facility] Unavailable [facility] Unavailable POOLE, PRAVIN Attending Unavailable DEPAMYO, JULIETH Primary Care Unavailable JOSE JOEL Attending Unavailable [facility] Unavailable LE DOBSON Attending LE Narayanan Referring [facility] Unavailable [facility] Attending Unavailable [facility] Referring Unavailable [facility] Unavailable JOSE JOEL Attending Unavailable JOSE JOEL Referring Unavailable [facility] Care Unavailable LE DOBSON Attending LE Narayanan Referring [facility] Unavailable Deperro OLS, Julieth Referring Unavailable Deperro [...] Codeine Drug Allergy 02-24-2016 Hives, Rash, Unknown [facility] (20 sources) Codeine; Translations: [CODEINE] Drug Allergy 02-24-2016 Hives, Rash [facility] Work Phone: (20 sources) Codeine; Translations: [CODEINE SULFATE] Drug Allergy 06-13-2018 Unknown [facility] Medications Current Medications Medication Drug Class(es) [...] complication, without long-term current use of insulin ([facility]) Use to test blood sugar 1 [...] extended release oral tablet (4 sources) Uncompetitive F-jzctce-D-aspartate Receptor Antagonist, Sigma-1 Agonist Start: 07-01-20 End: [...] as needed. Take 3 tablets by [facility] once daily. 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 Take 1 capsule by [facility] four times daily for 7 days. cholecalciferol [...] End: 02-02-2024 Start: 12-13-2021 15 g, Oral, IA N, Starting on Tue12/13/21 at 1807, Until [...] Comment on above: Take 1 tablet by cheol twice daily as needed (for allergy symptoms). [...] on above: TAKE 1 CAPSULE BY [facility] EVERY DAY IN THE MORNING 24 hr mirabegron 25 mg extended release oral tablet (20 sources) beta3-Adrenergic Agonist Start: 3 End: 5 take 1 tablet by mouth once daily mirabegron (MYRBETRIQ) 25 mg Tb24 Indications: Mixed incontinence Take 1 tablet by mouth once daily. 90 tablet 3 01/06/2024 04/27/2024 Discontinued (Course of therapy completed) Comment on above: Take 1 tablet by cheol once daily. Take 25 mg by mouth [...] 06-26-2024 End: 06-26-2024 omega-3 acid ethyl esters (fci) 1200 mg oral capsule (1 source) End: 08-25-2019 take 1 capsule by mouth once daily Cambria-3 Fatty Acids (FISH OIL) 1200 MG CAPS [...] mouth once daily. TAKE 1 CAPSULE BY [facility] EVERY DAY ondansetron 4 mg disintegrating oral [...] (Definity) injection 1.65 mg polyethylene glycol 3350 [id number] mg powder for oral solution (9 sources) [...] needed 5-40 mL, IntraVENous, PRN, Starting on [place] 12/13/21 at 1807, Until Discontinued, Line Care, [...] chelo twice daily. TAKE 1 TABLET BY [facility] TWICE A DAY 200 ml vancomycin 5 mg/ml injection (4 sources) Glycopeptide Antibacterial Start: 05-31-2024 End: 05-31-2024 1,000 mg, IntraVENous, at 133.3 mL/hr, Administer over 90 Minutes, Once, On [facility] 05/31/24 at 0830, For 1 dose, [...] hours, First dose on Tue01/29/24 at 1900, ADD-[place] bag, Suspected Indication (Select all that apply): [...] mouth. Active take 1 capsule by [facility] once daily alpha tocopherol (Vitamin E) 100 units capsule Take 100 Units by mouth daily. 0 Active Vitamin E, dl, a cetate, (VITAMIN E) 400 unit capsule Take 800 Units by mouth. 0 Active take 2 capsules by [facility] once daily vitamin E 400 UNIT capsule Take 800 Units by mouth daily 0 Active Vitamin E, dl, a cetate, (VITAMIN E) 400 unit capsule Take 800 Units by mouth. 0 Active Comment on above: Take 800 Units by [facility]. Zinc (19 sources) End: 05-03-2022 ZINC ORAL [...] Progress Noteon 01-11-2025 Progress Note [facility] Basic Metabolic Profile (BMP )on 01-10-2025 BUN/CRE 18.5 RATIO Normal 10-20 [facility] Comment on above: Order Comment: - Performed By: #### L 500.2500 #### [facility] [address] [place], [address] Calcium [Mass/Vol] 9.0 mg/dL Normal 7.6-11.0 [facility] Comment on above: Order Comment: - Performed By: #### L 500.2500 #### [facility] [address] [place], [address] Chloride [Moles/Vol] 104 mmol/L Normal 98-108 [facility] Comment on above: Order Comment: - Performed By: #### L 500.2500 #### [facility] [address] [place], [address] CO2 [Moles/Vol] 25.7 mmol/L Normal 21.0-32.0 [facility] Comment on above: Order Comment: - Performed By: #### L [id number] #### [facility] [address] [place], [address] Creatinine [Mass/Vol] 1.31 mg/dL High 0.70-1.20 [facility] Comment on above: Order Comment: - Performed By: #### L [id number] #### [facility] [address] [place], [address] GAP 10 Normal 5-15 [facility] Comment on above: Order Comment: - Performed By: #### L 500.2500 #### [facility] [address] [place], [address] GFR/1.73 sq M.predicted among non-blacks MDRD (S/P/Bld) [Vol rate/Area] 41 mL/min/{1.73_m2} Low >60 [facility] Comment on above: Order Comment: Result Comment: mL/m in/1.73m2 CKD-EPI Creatinine Equation (2020) Performed By: #### L 500.2500 #### [facility] [address] [place], [address] Glucose [Mass/Vol] 134 mg/dL High 70-99 [facility] Comment on above: Order Comment: Performed By: #### L 500.2500 #### [facility] [address] [place], [address] Potassium [Moles/Vol] 3.5 mmol/L Normal 3.3-5.1 [facility] Comment on above: Order Comment: Performed By: #### L [id number] #### [facility] [address] [place], [address] Sodium [Moles/Vol] 140 mmol/L Normal 133-145 [facility] Comment on above: Order Comment: Performed By: #### L 500.2500 #### [facility] [address] [place], [address] Urea nitrogen [Mass/Vol] 24 mg/dL High 4-19 [facility] Comment on above: Order Comment: Performed By: #### L 500.2500 #### [facility] [address] [place], [address] CBC-Complete Blood Cnt No Di ffon 01-10-2025 Erythrocyte distribution width (RBC) [Ratio] 13.4 % Normal 11.6-14.6 [facility] Comment on above: Order Comment: Performed By: #### L 500.4050, [id number] #### [facility] [address] [place], [address] Hematocrit (Bld) [Volume fraction] 34.1 % Low 37-47 [facility] Comment on above: Order Comment: 211.1 Performed By: #### L 500.4050, [id number] #### [facility] [address] [place], [address] Hemoglobin (Bld) [Mass/Vol] 11.3 g/dL Low 12.0-15.0 [facility] Comment on above: Order Comment: 211.1 Performed By: #### L 500.4050, [id number] #### [facility] [address] [place], [address] MCH (RBC) [Entitic mass] 32.8 pg High 27.0-32.0 [facility] Comment on above: Order Comment: 211.1 Performed By: #### L 500.4050, [id number] #### [facility] [address] [place], [address] MCHC (RBC) [Mass/Vol] 33.1 g/dL Normal 32-36 [facility] Comment on above: Order Comment: 211.1 Performed By: #### L 500.4050, [id number] #### [facility] [address] [place], [address] MCV (RBC) [Entitic vol] 98.8 fL Normal 81-99 [facility] Comment on above: Order Comment: 211.1 Performed By: #### L 500.4050, [id number] #### [facility] [address] [place], [address] Platelet mean volume (Bld) [Entitic vol] 11.6 fL Normal 6.2-12.0 [facility] Comment on above: Order Comment: 211.1 Performed By: #### L 500.4050, [id number] #### [facility] [address] [place], [address] Platelets (Bld) [#/Vol] 125 10*3/uL Low 150-450 [facility] Comment on above: Order Comment: 211.1 Performed By: #### L 500.4050, [id number] #### [facility] [address] [place], [address] RBC (Bld) [#/Vol] 3.45 10*6/uL Low 4.2-5.4 [facility] Comment on above: Order Comment: 211.1 Performed By: #### L 500.4050, [id number] #### [facility] [address] [place], [address] RDW SD 47.8 fl High 35.1-43.9 [facility] Comment on above: Order Comment: 211.1 Performed By: #### L 500.4050, [id number] #### [facility] [address] [place], [address] WBC (Bld) [#/Vol] 7.4 10*3/uL Normal 4.4-11.0 [facility] Comment on above: Order Comment: 211.1 Performed By: #### L 500.4050, [id number] #### [facility] [address] [place], [address] Hemoglobin A1con 12-25-2024 HbA1c (Bld) [Mass fraction] 7.0 % High <=5.6 [facility] Comment on above: Order Comment: 211.1 Result Comment: Norm al < 5.7 % Prediabetic 5.7 - 6.4 % Diabetic >or= 6.5 % Please note range changes. Performed By: #### L 500.4050, L503.5510 #### [facility] [address] [place], [address] CBC-Complete Blood Cnt No Di ffon 11-26-2024 Erythrocyte distribution width (RBC) [Ratio] 13.9 % Normal 11.6-14.6 [facility] Comment on above: Order Comment: 211.1 Performed By: #### L 500.4050, L503.5510 #### [facility] [address] [place], [address] Hematocrit (Bld) [Volume fraction] 32.2 % Low 37-47 [facility] Comment on above: Order Comment: 211.1 Performed By: #### L 500.4050, [id number] #### [facility] [address] [place], [address] Hemoglobin (Bld) [Mass/Vol] 10.5 g/dL Low 12.0-15.0 [facility] Comment on above: Order Comment: 211.1 Performed By: #### L 500.4050, [id number] #### [facility] [address] [place], [address] MCH (RBC) [Entitic mass] 32.0 pg Normal 27.0-32.0 [facility] Comment on above: Order Comment: 211.1 Performed By: #### L 500.4050, [id number] #### [facility] [address] [place], [address] MCHC (RBC) [Mass/Vol] 32.6 g/dL Normal 32-36 [facility] Comment on above: Order Comment: 211.1 Performed By: #### L 500.4050, [id number] #### [facility] [address] [place], [address] MCV (RBC) [Entitic vol] 98.2 fL Normal 81-99 [facility] Comment on above: Order Comment: 211.1 Performed By: #### L 500.4050, [id number] #### [facility] [address] [place], [address] Platelet mean volume (Bld) [Entitic vol] 10.6 fL Normal 6.2-12.0 [facility] Comment on above: Order Comment: 211.1 Performed By: #### L 500.4050, L503.5510 #### [facility] [address] [place], [address] Platelets (Bld) [#/Vol] 142 10*3/uL Low 150-450 [facility] Comment on above: Order Comment: 211.1 Performed By: #### L 500.4050, [id number] #### [facility] [address] [place], [address] RBC (Bld) [#/Vol] 3.28 10*6/uL Low 4.2-5.4 [facility] Comment on above: Order Comment: 211.1 Performed By: #### L 500.4050, [id number] #### [facility] [address] [place], [address] RDW SD 49.7 fl High 35.1-43.9 [facility] Comment on above: Order Comment: 211.1 Performed By: #### L 500.4050, [id number] #### [facility] [address] [place], [address] WBC (Bld) [#/Vol] 9.6 10*3/uL Normal 4.4-11.0 [facility] Comment on above: Order Comment: 211.1 Performed By: #### L 500.4050, L503.5510 #### [facility] [address] [place], [address] Erythrocyte distribution wid th (RBC) [Ratio]Ordered By: Julieth Olmedo on 11-26-2024 Erythrocyte distribution width (RBC) [Entitic vol] 49.7 fL High 35.1-43.9 [facility] Erythrocyte distribution wid th ratioOrdered By: Julieth Olmedo on 11-26-2024 Erythrocyte distribution width (RBC) [Ratio] 13.9 % 11.6-14.6 [facility] Hematocrit Auto (Bld) [Volum e fraction]Ordered By: Julieth Olmedo on 11-26-2024 Hematocrit (Bld) [Volume fraction] 32.2 % Low 37-47 [facility] Hemoglobin measurementOrdere d By: Julieth Olmedo on 11-26-2024 Hemoglobin (Bld) [Mass/Vol] 10.5 g/dL Low 12.0-15.0 [facility] Influenza virus A and B and SARS-CoV-2 (COVID-19) and Respiratory syncytial virus RNAOrdered By: Julieth Olmedo on 11-26-2024 SARS-CoV-2 (COVID-19) RNA HUGO+probe Ql (Unsp spec) [facility] M100.678on 11-26-2024 M100.678 Pending SARS-CoV-2 (COVID 19) Negative INFLUENZA A Negative INFLUENZA B Negative RSV PCR Negative Normal [facility] Comment on above: Performed By: #### L 500.4050, L503.5510 #### [facility] [address] [place] [address], [address] MCV (mean corpuscular volume ) determinationOrdered By: Julieth Olmedo on 11-26-2024 MCV (RBC) [Entitic vol] 98.2 fL 81-99 [facility] Mean corpuscular hemoglobin (MCH) determinationOrdered By: Julieth Olmedo on 11-26-2024 MCH (RBC) [Entitic mass] 32.0 pg 27.0-32.0 [facility] Mean corpuscular hemoglobin concentration (MCHC) determinationOrdered By: Julieth Olmdeo on 11-26-2024 MCHC (RBC) [Mass/Vol] 32.6 g/dL 32-36 [facility] Mean platelet volume determi nationOrdered By: Julieth Olmedo on 11-26-2024 Platelet mean volume (Bld) [Entitic vol] 10.6 fL 6.2-12.0 [facility] Platelet countOrdered By: Chen on 11-26-2024 Platelets (Bld) [#/Vol] 142 10*3/uL Low 150-450 [facility] RBC Auto (Bld) [#/Vol]Ordere d By: Julieth Olmedo on 11-26-2024 RBC (Bld) [#/Vol] 3.28 10*6/uL Low 4.2-5.4 [facility] White blood cell (WBC) count Ordered By: Julieth Olmedo on 11-26-2024 WBC (Bld) [#/Vol] 9.6 10*3/uL 4.4-11.0 [facility] Ammoniaon 11-12-2024 Ammonia (P) [Moles/Vol] 38.0 umol/L Normal [facility] Comment on above: Order Comment: 211.1 Performed By: #### L 500.4050, L503.5510 #### [facility] [address] [place], [address] Venous blood ammonia measure mentOrdered By: Julieth Olmedo on 11-12-2024 Ammonia (P) [Moles/Vol] 38.0 umol/L [facility] Anion gap in Serum or Plasma Ordered By: Julieth Olmedo on 11-02-2024 Anion gap [Moles/Vol] 11 mmol/L 12-20 [facility] BUN/creatinine ratioOrdered By: Julieth Olmedo on 11-02-2024 Urea nitrogen/Creatinine [Mass ratio] 14.1 mg/mg 05-27 [facility] Basic Metabolic Profile (BMP )on 11-02-2024 BUN/CRE 14.1 RATIO Normal 05-27 [facility] Comment on above: Order Comment: 211.1 Performed By: #### L 500.4050, L503.5510 #### [facility] [address] [place], [address] Calcium [Mass/Vol] 9.4 mg/dL Normal 7.6-11.0 [facility] Comment on above: Order Comment: 211.1 Performed By: #### L 500.4050, [id number] #### [facility] [address] [place], [address] Chloride [Moles/Vol] 103 mmol/L Normal 98-108 [facility] Comment on above: Order Comment: 211.1 Performed By: #### L 500.4050, [id number] #### [facility] [address] [place], [address] CO2 [Moles/Vol] 25.6 mmol/L Normal 21.0-32.0 [facility] Comment on above: Order Comment: 211.1 Performed By: #### L 500.4050, [id number] #### [facility] [address] [place], [address] Creatinine [Mass/Vol] 1.52 mg/dL High 0.70-1.20 [facility] Comment on above: Order Comment: 211.1 Performed By: #### L 500.4050, L503.5510 #### [facility] [address] [place], [address] GAP 11 Normal 5-15 [facility] Comment on above: Order Comment: 211.1 Performed By: #### L 500.4050, L503.5510 #### [facility] [address] [place], [address] GFR/1.73 sq M.predicted among non-blacks MDRD (S/P/Bld) [Vol rate/Area] 35 mL/min/{1.73_m2} Low >60 [facility] Comment on above: Order Comment: 211.1 Result Comment: mL/m in/1.73m2 CKD-EPI Creatinine Equation (2020) Performed By: #### L 500.4050, L503.5510 #### [facility] [address] [place], [address] Glucose [Mass/Vol] 136 mg/dL High 70-99 [facility] Comment on above: Order Comment: 211.1 Performed By: #### L 500.4050, L503.5510 #### [facility] [address] [place], [address] Potassium [Moles/Vol] 3.8 mmol/L Normal 3.3-5.1 [facility] Comment on above: Order Comment: 211.1 Performed By: #### L 500.4050, L503.5510 #### [facility] [address] [place], [address] Sodium [Moles/Vol] 139 mmol/L Normal 133-145 [facility] Comment on above: Order Comment: 211.1 Performed By: #### L 500.4050, [id number] #### [facility] [address] [place], [address] Urea nitrogen [Mass/Vol] 22 mg/dL High 4-19 [facility] Comment on above: Order Comment: 211.1 Performed By: #### L 500.4050, L503.5510 #### [facility] [address] [place], [address] Carbon dioxide, total [Moles /volume] in Central venous bloodOrdered By: Julieth Olmedo on 11-02-2024 CO2 [Moles/Vol] 25.6 mmol/L 21.0-32.0 [facility] Chloride assayOrdered By: Chen on 11-02-2024 Chloride [Moles/Vol] 103 mmol/L 98-108 [facility] GFR/1.73 sq M.predicted zakia g non-blacks MDRD (S/P/Bld) [Vol rate/Area]Ordered By: Julieth Olmedo on 11-02-2024 Estimated GFR (MDRD) Non-Af Amer 35 Low >60 [facility] Comment on above: mL/min/1.73m2 CKD-EP I Creatinine Equation (2020) Potassium (Unsp spec) [Mass/ Vol]Ordered By: Julieth Olmedo on 11-02-2024 Potassium [Moles/Vol] 3.8 mmol/L 3.3-5.1 [facility] Serum creatinine measurement (mass/volume)Ordered By: Julieth Olmedo on 11-02-2024 Creatinine [Mass/Vol] 1.52 mg/dL High 0.70-1.20 [facility] Serum glucose measurement (m ass/volume)Ordered By: Julieth Olmedo on 11-02-2024 Glucose [Mass/Vol] 136 mg/dL High 70-99 [facility] Serum or plasma calcium kirstin urement (mass/volume)Ordered By: Julieth Olmedo on 11-02-2024 Calcium [Mass/Vol] 9.4 mg/dL 7.6-11.0 [facility] Serum or plasma urea nitroge n measurement (mass/volume)Ordered By: Julieth Olmedo on 11-02-2024 Urea nitrogen [Mass/Vol] 22 mg/dL High 4-19 [facility] Sodium levelOrdered By: Julieth Olmedo on 11-02-2024 Sodium [Moles/Vol] 139 mmol/L 133-145 [facility] Anion gap in Serum or Plasma Ordered By: Julieth Olmedo on 10-26-2024 Anion gap [Moles/Vol] 10 mmol/L 5-15 [facility] BUN/creatinine ratioOrdered By: Julieth Olmedo on 10-26-2024 Urea nitrogen/Creatinine [Mass ratio] 17.4 mg/mg 10- [facility] Basic Metabolic Profile (BMP )on 10-26-2024 BUN/CRE 17.4 RATIO Normal - [facility] Comment on above: Order Comment: Performed By: #### L 500.2500 #### [facility] [address] [place], [place], [address] Calcium [Mass/Vol] 9.1 mg/dL Normal 7.6-11.0 [facility] Comment on above: Order Comment: Performed By: #### L 500.2500 #### [facility] [address] [place], [address] Chloride [Moles/Vol] 103 mmol/L Normal 98-108 [facility] Comment on above: Order Comment: Performed By: #### L 500.2500 #### [facility] [address] [place], [address] CO2 [Moles/Vol] 26.5 mmol/L Normal 21.0-32.0 [facility] [facility] Comment on above: Order Comment: Performed By: #### L 500.2500 #### [facility] [address] [place], [address] Creatinine [Mass/Vol] 1.39 mg/dL High 0.70-1.20 [facility] Comment on above: Order Comment: Performed By: #### L 500.2500 #### [facility] [address] [place], [address] GAP 10 Normal 5-15 [facility] Comment on above: Order Comment: Performed By: #### L 500.2500 #### [facility] [address] [place], [address] GFR/1.73 sq M.predicted among non-blacks MDRD (S/P/Bld) [Vol rate/Area] 39 mL/min/{1.73_m2} Low >60 [facility] Comment on above: Order Comment: Result Comment: mL/m in/1.73m2 CKD-EPI Creatinine Equation (2020) Performed By: #### L 500.2500 #### [facility] [address] [place], [address] Glucose [Mass/Vol] 152 mg/dL High 70-99 [facility] Comment on above: Order Comment: Performed By: #### L 500.2500 #### [facility] [address] [place], [address] Potassium [Moles/Vol] 3.5 mmol/L Normal 3.3-5.1 [facility] Comment on above: Order Comment: Performed By: #### L 500.2500 #### [facility] [address] [place], [place], [address] Sodium [Moles/Vol] 139 mmol/L Normal 133-145 [facility] Comment on above: Order Comment: Performed By: #### L 500.2500 #### [facility] [address] [place], [place], [address] Urea nitrogen [Mass/Vol] 24 mg/dL High 4-19 [facility] Comment on above: Order Comment: Performed By: #### L 500.2500 #### [facility] [address] [place], [place], [address] Carbon dioxide, total [Moles /volume] in Central venous bloodOrdered By: Julieth Olmedo on 10-26-2024 CO2 [Moles/Vol] 26.5 mmol/L 21.0-32.0 [facility] Chloride assayOrdered By: Chen on 10-26-2024 Chloride [Moles/Vol] 103 mmol/L 98-108 [facility] GFR/1.73 sq M.predicted zakia g non-blacks MDRD (S/P/Bld) [Vol rate/Area]Ordered By: Julieth Olmedo on 10-26-2024 Estimated GFR (MDRD) Non-Af Amer 39 Low >60 [facility] Comment on above: mL/min/1.73m2 CKD-EP I Creatinine Equation (2020) Potassium (Unsp spec) [Mass/ Vol]Ordered By: Julieth Olmedo on 10-26-2024 Potassium [Moles/Vol] 3.5 mmol/L 3.3-5.1 [facility] Serum creatinine measurement (mass/volume)Ordered By: Julieth Olmedo on 10-26-2024 Creatinine [Mass/Vol] 1.39 mg/dL High 0.70-1.20 [facility] Serum glucose measurement (m ass/volume)Ordered By: Julieth Olmedo on 10-26-2024 Glucose [Mass/Vol] 152 mg/dL High 70-99 [facility] Serum or plasma calcium kirstin urement (mass/volume)Ordered By: Julieth Olmedo on 10-26-2024 Calcium [Mass/Vol] 9.1 mg/dL 7.6-11.0 [facility] Serum or plasma urea nitroge n measurement (mass/volume)Ordered By: Julieth Olmedo on 10-26-2024 Urea nitrogen [Mass/Vol] 24 mg/dL High - [facility] Sodium levelOrdered By: Julieth Olmedo on 10-26-2024 Sodium [Moles/Vol] 139 mmol/L 133-145 [facility] Ammoniaon 10-15-2024 Ammonia (P) [Moles/Vol] 46.6 umol/L Normal [facility] Comment on above: Order Comment: 211.1 Performed By: #### L 500.4050, L503.5510 #### [facility] [address] [place], [place], [address] Venous blood ammonia measure mentOrdered By: Julieth Olmedo on 10-15-2024 Ammonia (P) [Moles/Vol] 46.6 umol/L [facility] Ammoniaon 10-05-2024 Ammonia (P) [Moles/Vol] 62.1 umol/L High [address] [place] [address] Comment on above: Order Comment: 211.1 Performed By: #### L 500.4050, L503.5510 #### [facility] [address] [place], [place], [address] Venous blood ammonia measure mentOrdered By: Julieth Olmedo on 10-05-2024 Ammonia (P) [Moles/Vol] 62.1 umol/L [facility] [address] [place] [address] on 10-02-2024 36 PC to [facility], I spoke with Diego MARRERO Reviewed verbal order. Will send to [facility] as well. She verbalized understanding. [facility] 36on 10-01-2024 36 Called, Diego MARRERO was alittle concerned BP past week, she has not been on RX since PM inserted 09/23 -168/70 09/24 -144/68 09/25-158/64 09/26-143/66 2-20-136/68 09/29-148-72 2-146/70 HR 70-80 no HF SX , wt stable,no complaints, will inform Dianelys Byrd [facility] 36 Rajwinder MARRERO from [facility] requesting return call to clarify medications and BP [phone]. May ask for nurse Normal [facility] Albumin to globulin ratioOrd ered By: Julieth Olmedo on 09-25-2024 Albumin/Globulin [Mass ratio] 0.6 {ratio} Low 0.9-2.4 [facility] Ammoniaon 09-25-2024 Ammonia (P) [Moles/Vol] 48.0 umol/L High 11-32 [facility] Comment on above: Order Comment: . Performed By: #### L 500.4050, L503.5510 #### [facility] [address] [facility] [address] Bilirubin, totalOrdered By: Julieth Olmedo on 09-25-2024 Bilirubin [Mass/Vol] 0.80 mg/dL 0.20-1.00 [facility] Comment on above: For patients on eltr ombopag therapy, use of Dimension [place] TBIL is not recommended. Blood urea nitrogen (BUN)/cr eatinine ratioOrdered By: Julieth Olmedo on 09-25-2024 Urea nitrogen/Creatinine [Mass ratio] 14.6 mg/mg 10-20 [facility] CBC-Complete Blood Cnt No Di ffon 09-25-2024 Erythrocyte distribution width (RBC) [Ratio] 14.3 % Normal 11.6-14.6 [facility] Comment on above: Order Comment: 211.1 Performed By: #### L 500.4050, L503.5510 #### [facility] [address] [facility] [address] Hematocrit (Bld) [Volume fraction] 32.7 % Low 37-47 [facility] Comment on above: Order Comment: 211.1 Performed By: #### L 500.4050, L503.5510 #### [facility] [address] [place], [address] Hemoglobin (Bld) [Mass/Vol] 10.5 g/dL Low 12.0-15.0 [facility] Comment on above: Order Comment: 211.1 Performed By: #### L 500.4050, L503.5510 #### [facility] [address] [place], [address] MCH (RBC) [Entitic mass] 31.5 pg Normal 27.0-32.0 [facility] Comment on above: Order Comment: 211.1 Performed By: #### L 500.4050, L503.5510 #### [facility] [address] [place], [address] MCHC (RBC) [Mass/Vol] 32.1 g/dL Normal 32-36 [facility] Comment on above: Order Comment: 211.1 Performed By: #### L 500.4050, L503.5510 #### [facility] [address] [place], [address] MCV (RBC) [Entitic vol] 98.2 fL Normal 81-99 [facility] Comment on above: Order Comment: 211.1 Performed By: #### L 500.4050, L503.5510 #### [facility] [address] [place], [address] Platelet mean volume (Bld) [Entitic vol] 11.1 fL Normal 6.2-12.0 [facility] Comment on above: Order Comment: 211.1 Performed By: #### L 500.4050, L503.5510 #### [facility] [address] [place], [address] Platelets (Bld) [#/Vol] 114 10*3/uL Low 150-450 [facility] Comment on above: Order Comment: 211.1 Performed By: #### L 500.4050, L503.5510 #### [facility] [address] [place], [address] RBC (Bld) [#/Vol] 3.33 10*6/uL Low 4.2-5.4 [facility] Comment on above: Order Comment: 211.1 Performed By: #### L 500.4050, L503.5510 #### [facility] [address] [place], [address] RDW SD 51.7 fl High 35.1-43.9 [facility] Comment on above: Order Comment: 211.1 Performed By: #### L 500.4050, L503.5510 #### [facility] [address] [place], [address] WBC (Bld) [#/Vol] 7.0 10*3/uL Normal 4.4-11.0 [facility] Comment on above: Order Comment: 211.1 Performed By: #### L 500.4050, L503.5510 #### [facility] [address] [place], [address] Carbon dioxide measurementOr dered By: Julieth Olmedo on 09-25-2024 CO2 [Moles/Vol] 26.0 mmol/L 21.0-32.0 [facility] Chloride measurementOrdered By: Julieth Olmedo on 09-25-2024 Chloride [Moles/Vol] 107 mmol/L 98-107 [facility] Comprehensive Metabolic Prof ilon 09-25-2024 Albumin [Mass/Vol] 2.5 g/dL Low 3.2-5.0 [facility] Comment on above: Order Comment: 211.1 Performed By: #### L 500.4050, L503.5510 #### [facility] [address] [place], [address] Albumin/Globulin [Mass ratio] 0.6 {ratio} Low 0.9-2.4 [facility] Comment on above: Order Comment: 211.1 Performed By: #### L 500.4050, L503.5510 #### [facility] [address] [place], [address] ALK P 152 U/L High 45-117 [facility] Comment on above: Order Comment: 211.1 Performed By: #### L 500.4050, [id number] #### [facility] [address] [place], [address] ALT [Catalytic activity/Vol] 27 U/L Normal 13-56 [facility] Comment on above: Order Comment: 211.1 Performed By: #### L 500.4050, L503.5510 #### [facility] [address] [place], [address] AST [Catalytic activity/Vol] 44 U/L High 15-37 [facility] Comment on above: Order Comment: 211.1 Performed By: #### L 500.4050, L503.5510 #### [facility] [address] [place], [address] Bilirubin [Mass/Vol] 0.80 mg/dL Normal 0.20-1.00 [facility] Comment on above: Order Comment: 211.1 Result Comment: For patients on eltrombopag therapy, use of Dimension [place] TBIL is not recommended. Performed By: #### L 500.4050, L503.5510 #### [facility] [address] [place], [address] BUN/CRE 14.6 RATIO Normal 10-20 [facility] Comment on above: Order Comment: 211.1 Performed By: #### L 500.4050, L503.5510 #### [facility] [address] [place], [address] CA,Total 9.0 mg/dL Normal 8.5-10.1 [facility] Comment on above: Order Comment: 211.1 Performed By: #### L 500.4050, L503.5510 #### [facility] [address] [place], [address] Chloride [Moles/Vol] 107 mmol/L Normal 98-107 [facility] Comment on above: Order Comment: 211.1 Performed By: #### L 500.4050, [id number] #### [facility] [address] [place], [address] CO2 [Moles/Vol] 26.0 mmol/L Normal 21.0-32.0 [facility] Comment on above: Order Comment: 211.1 Performed By: #### L 500.4050, L503.5510 #### [facility] [address] [place], [address] Creatinine [Mass/Vol] 1.23 mg/dL High 0.55-1.02 [facility] Comment on above: Order Comment: 211.1 Result Comment: The validity of the calculated GFR GFRAA in patients over 70 years has not been determined. Clinical correlation is essential. Performed By: #### L 500.4050, L503.5510 #### [facility] [address] [place], [address] EST GFR - AA 54 mL/min Low >60 [facility] Comment on above: Order Comment: 211.1 Result Comment: Afri can Dominican GFR Calc Performed By: #### L 500.4050, L503.5510 #### [facility] [address] [place], [address] GAP 8 Normal 5-15 [facility] Comment on above: Order Comment: 211.1 Performed By: #### L 500.4050, L503.5510 #### [facility] [address] [place], [address] GFR/1.73 sq M.predicted among non-blacks MDRD (S/P/Bld) [Vol rate/Area] 45 mL/min/{1.73_m2} Low >60 [facility] Comment on above: Order Comment: 211.1 Result Comment: Non- GFR Calc Performed By: #### L 500.4050, L503.5510 #### [facility] [address] [place], [address] Globulin (S) [Mass/Vol] 4.0 g/dL Normal 2.2-4.2 [facility] Comment on above: Order Comment: . Performed By: #### L 500.4050, L503.5510 #### [facility] [address] [place], [address] Glucose [Mass/Vol] 127 mg/dL High 74-106 [facility] Comment on above: Order Comment: . Result Comment: Fast ing Glucose result greater than or equal to 126 mg/dL suggests DIABETES MELLITUS per A.D.A. criteria. Performed By: #### L 500.4050, L503.5510 #### [facility] [address] [place], [address] Potassium [Moles/Vol] 3.5 mmol/L Normal 3.5-5.1 [facility] Comment on above: Order Comment: . Performed By: #### L 500.4050, L503.5510 #### [facility] [address] [place], [address] Sodium [Moles/Vol] 141 mmol/L Normal 136-145 [facility] Comment on above: Order Comment: . Performed By: #### L 500.4050, L503.5510 #### [facility] [address] [place], [address] T PROT 6.5 g/dL Normal 6.4-8.2 [facility] Comment on above: Order Comment: . Performed By: #### L 500.4050, L503.5510 #### [facility] [address] [place], [address] Urea nitrogen [Mass/Vol] 18 mg/dL Normal 7-18 [facility] Comment on above: Order Comment: 211.1 Performed By: #### L 500.4050, L503.5510 #### [facility] [address] [place], [place], [address] Erythrocyte distribution wid th (RBC) [Ratio]Ordered By: Julieth Olmedo on 09-25-2024 Erythrocyte distribution width (RBC) [Entitic vol] 51.7 fL High 35.1-43.9 [facility] Erythrocyte distribution wid th ratioOrdered By: Julieth Olmedo on 09-25-2024 Erythrocyte distribution width (RBC) [Ratio] 14.3 % 11.6-14.6 [facility] Estimated glomerular filtrat ion rate (GFR) AmericanOrdered By: Julieth Olmedo on 09-25-2024 Estimated GFR (MDRD) Amer 54 mL/min Low >60 [facility] Comment on above: GFR Calc Glomerular filtration rate ( GFR) estimationOrdered By: Julieth Olmedo on 09-25-2024 Estimated GFR (MDRD) Non-Af Amer 45 mL/min Low >60 [facility] Comment on above: Non- GFR Calc Glucose measurementOrdered B y: Julieth Olmedo on 09-25-2024 Glucose [Mass/Vol] 127 mg/dL High 74-106 [facility] Comment on above: Fasting Glucose resu lt greater than or equal to 126 mg/dL suggests DIABETES MELLITUS per A.D.A. criteria. Hematocrit Auto (Bld) [Volum e fraction]Ordered By: Julieth Olmedo on 09-25-2024 Hematocrit (Bld) [Volume fraction] 32.7 % Low 37-47 [facility] Hemoglobin measurementOrdere d By: Julieth Olmedo on 09-25-2024 Hemoglobin (Bld) [Mass/Vol] 10.5 g/dL Low 12.0-15.0 [facility] - Chemistry and C hemistry - challengeOrdered By: Julieth Olmedo on 09-25-2024 AST [Catalytic activity/Vol] 44 U/L High 15-37 [facility] MCV (mean corpuscular volume ) determinationOrdered By: Julieth Olmedo on 09-25-2024 MCV (RBC) [Entitic vol] 98.2 fL 81-99 [facility] Mean corpuscular hemoglobin (MCH) determinationOrdered By: Julieth Olmedo on 09-25-2024 MCH (RBC) [Entitic mass] 31.5 pg 27.0-32.0 [facility] Mean corpuscular hemoglobin concentration (MCHC) determinationOrdered By: Julieth Olmedo on 09-25-2024 MCHC (RBC) [Mass/Vol] 32.1 g/dL 32-36 [facility] Mean platelet volume determi nationOrdered By: Julieth Olmedo on 09-25-2024 Platelet mean volume (Bld) [Entitic vol] 11.1 fL 6.2-12.0 [facility] Platelet countOrdered By: Chen on 09-25-2024 Platelets (Bld) [#/Vol] 114 10*3/uL Low 150-450 [facility] Potassium measurementOrdered By: Julieth Olmedo on 09-25-2024 Potassium [Moles/Vol] 3.5 mmol/L 3.5-5.1 [facility] RBC Auto (Bld) [#/Vol]Ordere d By: Julieth Olmedo on 09-25-2024 RBC (Bld) [#/Vol] 3.33 10*6/uL Low 4.2-5.4 [facility] Serum anion gap measurementO rdered By: Julieth Olmedo on 09-25-2024 Anion gap [Moles/Vol] 8 mmol/L 5-15 [facility] Serum globulin measurementOr dered By: Julieth Olmedo on 09-25-2024 Globulin (S) [Mass/Vol] 4.0 g/dL 2.2-4.2 [facility] Serum or plasma alanine taylor otransferase (ALT) measurementOrdered By: Julieth Olmedo on 09-25-2024 ALT [Catalytic activity/Vol] 27 U/L 13-56 [facility] Serum or plasma albumin kirstin urement (mass/volume)Ordered By: Julieth Olmedo on 09-25-2024 Albumin [Mass/Vol] 2.5 g/dL Low 3.2-5.0 [facility] Serum or plasma alkaline loan sphatase measurementOrdered By: Julieth Olmedo on 09-25-2024 ALP [Catalytic activity/Vol] 152 U/L High 45-117 [facility] Serum or plasma calcium kirstin urement (mass/volume)Ordered By: Julieth Olmedo on 09-25-2024 Calcium [Mass/Vol] 9.0 mg/dL 8.5-10.1 [facility] Serum or plasma creatinine m easurement (mass/volume)Ordered By: Julieth Olmedo on 09-25-2024 Creatinine [Mass/Vol] 1.23 mg/dL High 0.55-1.02 [facility] Comment on above: The validity of the calculated GFR & GFRAA in patients over 70 years has not been determined. Clinical correlation is essential. Serum or plasma urea nitroge n measurement (mass/volume)Ordered By: Julieth Olmedo on 09-25-2024 Urea nitrogen [Mass/Vol] 18 mg/dL 7-18 [facility] Sodium levelOrdered By: Julieth Olmedo on 09-25-2024 Sodium [Moles/Vol] 141 mmol/L 136-145 [facility] Total proteinOrdered By: Karla Olmedo on 09-25-2024 Protein [Mass/Vol] 6.5 g/dL 6.4-8.2 [facility] Venous blood ammonia measure mentOrdered By: Julieth Olmedo on 09-25-2024 Ammonia (P) [Moles/Vol] 48.0 umol/L High 11-32 [facility] White blood cell (WBC) count Ordered By: Julieth Olmedo on 09-25-2024 WBC (Bld) [#/Vol] 7.0 10*3/uL 4.4-11.0 [facility] Albumin to globulin ratioOrd ered By: Julieth Olmedo on 08-07-2024 Albumin/Globulin [Mass ratio] 0.8 {ratio} Low 0.9-2.4 [facility] Comment on above: Order Comment: 211.1 Performed By: #### L 500.4050, L503.5510 #### [facility] [address] [place], [address] Bilirubin, totalOrdered By: Julieth Olmedo on 08-07-2024 Bilirubin [Mass/Vol] 1.00 mg/dL Normal 0.20-1.00 [facility] Comment on above: For patients on eltr ombopag therapy, use of Dimension [place] TBIL is not recommended. Order Comment: 211.1 Result Comment: For patients on eltrombopag therapy, use of Dimension [place] TBIL is not recommended. Performed By: #### L 500.4050, L503.5510 #### [facility] [address] [place], [address] Blood urea nitrogen (BUN)/cr eatinine ratioOrdered By: Julieth Olmedo on 08-07-2024 Urea nitrogen/Creatinine [Mass ratio] 10.9 mg/mg 10-20 [facility] Carbon dioxide measurementOr dered By: Julieth Olmedo on 08-07-2024 CO2 [Moles/Vol] 27.0 mmol/L Normal 21.0-32.0 [facility] Comment on above: Order Comment: 211.1 Performed By: #### L 500.4050, L503.5510 #### [facility] [address] [place], [address] Chloride measurementOrdered By: Julieth Olmedo on 08-07-2024 Chloride [Moles/Vol] 106 mmol/L Normal 98-107 [facility] Comment on above: Order Comment: 211.1 Performed By: #### L 500.4050, [id number] #### [facility] [address] [place], [address] Comprehensive Metabolic Prof ilon 08-07-2024 ALK P 174 U/L High 45-117 [facility] Comment on above: Order Comment: 211.1 Performed By: #### L 500.4050, [id number] #### [facility] [address] [place], [address] BUN/CRE 10.9 RATIO Normal 10-20 [facility] Comment on above: Order Comment: 211.1 Performed By: #### L 500.4050, [id number] #### [facility] [address] [place], [address] CA,Total 9.3 mg/dL Normal 8.5-10.1 [facility] Comment on above: Order Comment: 211.1 Performed By: #### L 500.4050, L503.5510 #### [facility] [address] [place], [address] EST GFR - AA 52 mL/min Low >60 [facility] Comment on above: Order Comment: 211.1 Result Comment: Afri can Dominican GFR Calc Performed By: #### L 500.4050, L503.5510 #### [facility] [address] [place], [address] GAP 6 Normal 5-15 [facility] Comment on above: Order Comment: 211.1 Performed By: #### L 500.4050, [id number] #### [facility] [address] [place], [address] GFR/1.73 sq M.predicted among non-blacks MDRD (S/P/Bld) [Vol rate/Area] 43 mL/min/{1.73_m2} Low >60 [facility] Comment on above: Order Comment: 211.1 Result Comment: Non- GFR Calc Performed By: #### L 500.4050, L503.5510 #### [facility] [address] [place], [address] T PROT 6.4 g/dL Normal 6.4-8.2 [facility] Comment on above: Order Comment: 211.1 Performed By: #### L 500.4050, [id number] #### [facility] [address] [place], [address] Comprehensive Metabolic Prof ilOrdered By: Julieth Olmedo on 08-07-2024 AST [Catalytic activity/Vol] 47 U/L High 15-37 [facility] Comment on above: Order Comment: 211.1 Performed By: #### L 500.4050, L503.5510 #### [facility] [address] [place], [address] Estimated glomerular filtrat ion rate (GFR) AmericanOrdered By: Julieth Olmedo on 08-07-2024 Estimated GFR (MDRD) Amer 52 mL/min Low >60 [facility] Comment on above: GFR Calc Glomerular filtration rate ( GFR) estimationOrdered By: Julieth Olmedo on 08-07-2024 Estimated GFR (MDRD) Non-Af Amer 43 mL/min Low >60 [facility] Comment on above: Non- GFR Calc Glucose measurementOrdered B y: Julieth Olmedo on 08-07-2024 Glucose [Mass/Vol] 127 mg/dL High 74-106 [facility] Comment on above: Fasting Glucose resu lt greater than or equal to 126 mg/dL suggests DIABETES MELLITUS per A.D.A. criteria. Order Comment: 211.1 Result Comment: Fast ing Glucose result greater than or equal to 126 mg/dL suggests DIABETES MELLITUS per A.D.A. criteria. Performed By: #### L 500.4050, L503.5510 #### [facility] [address] [place], [address] Potassium measurementOrdered By: Julieth Olmedo on 08-07-2024 Potassium [Moles/Vol] 3.8 mmol/L Normal 3.5-5.1 [facility] Comment on above: Order Comment: 211.1 Performed By: #### L 500.4050, L503.5510 #### [facility] [address] [place], [address] Serum anion gap measurementO rdered By: Julieth Olmedo on 08-07-2024 Anion gap [Moles/Vol] 6 mmol/L 5-15 [facility] Serum globulin measurementOr dered By: Julieth Olmedo on 08-07-2024 Globulin (S) [Mass/Vol] 3.6 g/dL Normal 2.2-4.2 [facility] Comment on above: Order Comment: 211.1 Performed By: #### L 500.4050, L503.5510 #### [facility] [address] [place], [address] Serum or plasma alanine taylor otransferase (ALT) measurementOrdered By: Julieth Olmedo on 08-07-2024 ALT [Catalytic activity/Vol] 27 U/L Normal 13-56 [facility] Comment on above: Order Comment: 211.1 Performed By: #### L 500.4050, L503.5510 #### [facility] [address] [place], [address] Serum or plasma albumin kirstin urement (mass/volume)Ordered By: Julieth Olmedo on 08-07-2024 Albumin [Mass/Vol] 2.8 g/dL Low 3.2-5.0 [facility] Comment on above: Order Comment: 211.1 Performed By: #### L 500.4050, L503.5510 #### [facility] [address] [place], [address] Serum or plasma alkaline loan sphatase measurementOrdered By: Julieth Olmedo on 08-07-2024 ALP [Catalytic activity/Vol] 174 U/L High 45-117 [facility] Serum or plasma calcium kirstin urement (mass/volume)Ordered By: Julieth Olmedo on 08-07-2024 Calcium [Mass/Vol] 9.3 mg/dL 8.5-10.1 [facility] Serum or plasma creatinine m easurement (mass/volume)Ordered By: Julieth Olmedo on 08-07-2024 Creatinine [Mass/Vol] 1.28 mg/dL High 0.55-1.02 [facility] Comment on above: The validity of the calculated GFR & GFRAA in patients over 70 years has not been determined. Clinical correlation is essential. Order Comment: 211.1 Result Comment: The validity of the calculated GFR GFRAA in patients over 70 years has not been determined. Clinical correlation is essential. Performed By: #### L 500.4050, L503.5510 #### [facility] [address] [place], [address] Serum or plasma urea nitroge n measurement (mass/volume)Ordered By: Julieth Olmedo on 08-07-2024 Urea nitrogen [Mass/Vol] 14 mg/dL Normal 7-18 [facility] Comment on above: Order Comment: 211.1 Performed By: #### L 500.4050, L503.5510 #### [facility] [address] [place], [address] Sodium levelOrdered By: Julieth Olmedo on 08-07-2024 Sodium [Moles/Vol] 139 mmol/L Normal 136-145 [facility] Comment on above: Order Comment: 211.1 Performed By: #### L 500.4050, L503.5510 #### [facility] [address] [place], [address] Total proteinOrdered By: Karla Olmedo on 08-07-2024 Protein [Mass/Vol] 6.4 g/dL 6.4-8.2 [facility] Venous blood ammonia measure mentOrdered By: Julieth Olmedo on 08-07-2024 Ammonia (P) [Moles/Vol] 31.0 umol/L Normal 11-32 [facility] Comment on above: Order Comment: 211.1 Performed By: #### L 500.4050, L503.5510 #### [facility] [address] [place], [address] Basic Metabolic Profile (BMP )on 08-03-2024 BUN/CRE 11.8 RATIO Normal 10-20 [facility] Comment on above: Order Comment: 211-1 Performed By: #### L 500.2500 #### [facility] [address] [place], [address] CA,Total 8.9 mg/dL Normal 8.5-10.1 [facility] Comment on above: Order Comment: Performed By: #### L 500.2500 #### [facility] [address] [place], [address] Chloride [Moles/Vol] 107 mmol/L Normal 98-107 [facility] Comment on above: Order Comment: Performed By: #### L 500.2500 #### [facility] [address] [place], [address] CO2 [Moles/Vol] 26.0 mmol/L Normal 21.0-32.0 [facility] Comment on above: Order Comment: Performed By: #### L 500.2500 #### [facility] [address] [place], [address] Creatinine [Mass/Vol] 1.27 mg/dL High 0.55-1.02 [facility] Comment on above: Order Comment: Result Comment: The validity of the calculated GFR GFRAA in patients over 70 years has not been determined. Clinical correlation is essential. Performed By: #### L 500.2500 #### [facility] [address] [place], [address] EST GFR - AA 52 mL/min Low >60 [facility] Comment on above: Order Comment: Result Comment: Afri can Dominican GFR Calc Performed By: #### L 500.2500 #### [facility] [address] [place], [address] GAP 7 Normal 5-15 [facility] Comment on above: Order Comment: Performed By: #### L 500.2500 #### [facility] [address] [place], [address] GFR/1.73 sq M.predicted among non-blacks MDRD (S/P/Bld) [Vol rate/Area] 43 mL/min/{1.73_m2} Low >60 [facility] Comment on above: Order Comment: Result Comment: Non- GFR Calc Performed By: #### L 500.2500 #### [facility] [address] [place], [address] Glucose [Mass/Vol] 117 mg/dL High 74-106 [facility] Comment on above: Order Comment: Result Comment: Fast ing Glucose result from 100 to 125 mg/dL suggests IMPAIRED HOMEOSTASIS per A.D.A. criteria. Performed By: #### L 500.2500 #### [facility] [address] [place], [address] Potassium [Moles/Vol] 3.5 mmol/L Normal 3.5-5.1 [facility] Comment on above: Order Comment: Performed By: #### L 500.2500 #### [facility] [address] [place], [address] Sodium [Moles/Vol] 140 mmol/L Normal 136-145 [facility] Comment on above: Order Comment: Performed By: #### L 500.2500 #### [facility] [address] [place], [address] Urea nitrogen [Mass/Vol] 15 mg/dL Normal 7-18 [facility] Comment on above: Order Comment: Performed By: #### L 500.2500 #### [facility] [address] [place], [address] Blood urea nitrogen (BUN)/cr eatinine ratioOrdered By: Julieth Olmedo on 08-03-2024 Urea nitrogen/Creatinine [Mass ratio] 11.8 mg/mg 10-20 [facility] Carbon dioxide measurementOr dered By: Julieth Olmedo on 08-03-2024 CO2 [Moles/Vol] 26.0 mmol/L 21.0-32.0 [facility] Chloride measurementOrdered By: Julieth Olmedo on 08-03-2024 Chloride [Moles/Vol] 107 mmol/L 98-107 [facility] Estimated glomerular filtrat ion rate (GFR) AmericanOrdered By: Julieth Olmedo on 08-03-2024 Estimated GFR (MDRD) Amer 52 mL/min Low >60 [facility] Comment on above: GFR Calc Glomerular filtration rate ( GFR) estimationOrdered By: Julieth Olmedo on 08-03-2024 Estimated GFR (MDRD) Non-Af Amer 43 mL/min Low >60 [facility] Comment on above: Non- GFR Calc Glucose measurementOrdered B y: Julieth Olmedo on 08-03-2024 Glucose [Mass/Vol] 117 mg/dL High 74-106 [facility] Comment on above: Fasting Glucose resu lt from 100 to 125 mg/dL suggests IMPAIRED HOMEOSTASIS per A.D.A. criteria. Potassium measurementOrdered By: Julieth Olmedo on 08-03-2024 Potassium [Moles/Vol] 3.5 mmol/L 3.5-5.1 [facility] Serum anion gap measurementO rdered By: Julieth Olmedo on 08-03-2024 Anion gap [Moles/Vol] 7 mmol/L 5-15 [facility] Serum or plasma calcium kirstin urement (mass/volume)Ordered By: Julieth Olmedo on 08-03-2024 Calcium [Mass/Vol] 8.9 mg/dL 8.5-10.1 [facility] Serum or plasma creatinine m easurement (mass/volume)Ordered By: Julieth Olmedo on 08-03-2024 Creatinine [Mass/Vol] 1.27 mg/dL High 0.55-1.02 [facility] Comment on above: The validity of the calculated GFR & GFRAA in patients over 70 years has not been determined. Clinical correlation is essential. Serum or plasma urea nitroge n measurement (mass/volume)Ordered By: Julieth Olmedo on 08-03-2024 Urea nitrogen [Mass/Vol] 15 mg/dL 7-18 [facility] Sodium levelOrdered By: Julieth Olmedo on 08-03-2024 Sodium [Moles/Vol] 140 mmol/L 136-145 [facility] Ammoniaon 08-02-2024 Ammonia (P) [Moles/Vol] 40.0 umol/L High [address] [place] [address] Comment on above: Order Comment: 211.1 Performed By: #### L 503.5510 #### [facility] [address] [place], [address] Venous blood ammonia measure mentOrdered By: Julieth Olmedo on 08-02-2024 Ammonia (P) [Moles/Vol] 40.0 umol/L High [facility] TSH QnOrdered By: Julieth gordillo on 07-25-2024 Thyroid Stimulating Hormone (TSH) 1.990 uIU/mL 0.358-3.740 [facility] Thyroid Stim Hormone (TSH)on 07-25-2024 TSH 1.990 uIU/mL Normal 0.358-3.740 [facility] Comment on above: Order Comment: 211.1 Performed By: #### L 500.4050, L503.5510 #### [facility] [address] [place], [address] Ammoniaon 07-20-2024 Ammonia (P) [Moles/Vol] 24.0 umol/L Normal [address] [place] [address] Comment on above: Order Comment: 211.1 Performed By: #### L 500.4050, L503.5510 #### [facility] [address] [place], [address] Venous blood ammonia measure mentOrdered By: Julieth Olmedo on 07-20-2024 Ammonia (P) [Moles/Vol] 24.0 umol/L [facility] Basic Metabolic Profile (BMP )on 07-19-2024 BUN/CRE 9.2 RATIO Low 10-20 [facility] Comment on above: Order Comment: 211.1 Performed By: #### L 500.4050, L503.5510 #### [facility] [address] [place], [address] CA,Total 9.3 mg/dL Normal 8.5-10.1 [facility] Comment on above: Order Comment: . Performed By: #### L 500.4050, L503.5510 #### [facility] [address] [place], [address] EST GFR - AA 50 mL/min Low >60 [facility] Comment on above: Order Comment: 211.1 Result Comment: Afri can Dominican GFR Calc Performed By: #### L 500.4050, L503.5510 #### [facility] [address] [place], [address] GAP 6 Normal 5-15 [facility] Comment on above: Order Comment: . Performed By: #### L 500.4050, L503.5510 #### [facility] [address] [place], [address] GFR/1.73 sq M.predicted among non-blacks MDRD (S/P/Bld) [Vol rate/Area] 42 mL/min/{1.73_m2} Low >60 [facility] Comment on above: Order Comment: . Result Comment: Non- GFR Calc Performed By: #### L 500.4050, L503.5510 #### [facility] [address] [place], [address] Blood urea nitrogen (BUN)/cr eatinine ratioOrdered By: Julieth Olmedo on 07-19-2024 Urea nitrogen/Creatinine [Mass ratio] 9.2 mg/mg Low 10-20 [facility] Carbon dioxide measurementOr dered By: Julieth Olmedo on 07-19-2024 CO2 [Moles/Vol] 28.0 mmol/L Normal 21.0-32.0 [facility] Comment on above: Order Comment: . Performed By: #### L 500.4050, L503.5510 #### [facility] [address] [place], [address] Chloride measurementOrdered By: Julieth Olmedo on 07-19-2024 Chloride [Moles/Vol] 107 mmol/L Normal 98-107 [facility] Comment on above: Order Comment: 211.1 Performed By: #### L 500.4050, L503.5510 #### [facility] [address] [place], [address] Estimated glomerular filtrat ion rate (GFR) AmericanOrdered By: Julieth Olmedo on 07-19-2024 Estimated GFR (MDRD) Amer 50 mL/min Low >60 [facility] Comment on above: GFR Calc Glomerular filtration rate ( GFR) estimationOrdered By: Julieth Olmedo on 07-19-2024 Estimated GFR (MDRD) Non-Af Amer 42 mL/min Low >60 [facility] Comment on above: Non- GFR Calc Glucose measurementOrdered B y: Julieth Olmedo on 07-19-2024 Glucose [Mass/Vol] 125 mg/dL High 74-106 [facility] Comment on above: Fasting Glucose resu lt from 100 to 125 mg/dL suggests IMPAIRED HOMEOSTASIS per A.D.A. criteria. Order Comment: 211.1 Result Comment: Fast ing Glucose result from 100 to 125 mg/dL suggests IMPAIRED HOMEOSTASIS per A.D.A. criteria. Performed By: #### L 500.4050, L503.5510 #### [facility] [address] [place], [address] HH, Hemoglobin AND Hematocri ton 07-19-2024 Hematocrit (Bld) [Volume fraction] 28.5 % Low 37-47 [facility] Comment on above: Order Comment: 211.1 Performed By: #### L 500.4050, L503.5510 #### [facility] [address] [place], [address] Hemoglobin (Bld) [Mass/Vol] 8.8 g/dL Low 12.0-15.0 [facility] Comment on above: Order Comment: 211.1 Performed By: #### L 500.4050, L503.5510 #### [facility] [address] [place], [address] Hematocrit Auto (Bld) [Volum e fraction]Ordered By: Julieth Olmedo on 07-19-2024 Hematocrit (Bld) [Volume fraction] 28.5 % Low 37-47 [facility] Hemoglobin measurementOrdere d By: Julieth Olmedo on 07-19-2024 Hemoglobin (Bld) [Mass/Vol] 8.8 g/dL Low 12.0-15.0 [facility] Potassium measurementOrdered By: Julieth Olmedo on 07-19-2024 Potassium [Moles/Vol] 3.7 mmol/L Normal 3.5-5.1 [facility] Comment on above: Order Comment: 211.1 Performed By: #### L 500.4050, L503.5510 #### [facility] [address] [place], [address] Serum anion gap measurementO rdered By: Julieth Olmedo on 07-19-2024 Anion gap [Moles/Vol] 6 mmol/L 5-15 [facility] Serum or plasma calcium kirstin urement (mass/volume)Ordered By: Julieth Olmedo on 07-19-2024 Calcium [Mass/Vol] 9.3 mg/dL 8.5-10.1 [facility] Serum or plasma creatinine m easurement (mass/volume)Ordered By: Julieth Olmedo on 07-19-2024 Creatinine [Mass/Vol] 1.31 mg/dL High 0.55-1.02 [facility] Comment on above: The validity of the calculated GFR & GFRAA in patients over 70 years has not been determined. Clinical correlation is essential. Order Comment: 211.1 Result Comment: The validity of the calculated GFR GFRAA in patients over 70 years has not been determined. Clinical correlation is essential. Performed By: #### L 500.4050, L503.5510 #### [facility] [address] [place], [address] Serum or plasma urea nitroge n measurement (mass/volume)Ordered By: Julieth Olmedo on 07-19-2024 Urea nitrogen [Mass/Vol] 12 mg/dL Normal 7-18 [facility] Comment on above: Order Comment: 211.1 Performed By: #### L 500.4050, L503.5510 #### [facility] [address] [place], [address] Sodium levelOrdered By: Julieth Olmedo on 07-19-2024 Sodium [Moles/Vol] 140 mmol/L Normal 136-145 [facility] Comment on above: Order Comment: 211.1 Performed By: #### L 500.4050, L503.5510 #### [facility] [address] [place], [address] Ammoniaon 07-18-2024 Ammonia (P) [Moles/Vol] 40.0 umol/L High [facility] Comment on above: Order Comment: 211-1 Performed By: #### L 503.5510 #### [facility] [address] [place], [address] Venous blood ammonia measure mentOrdered By: Julieth Olmedo on 07-18-2024 Ammonia (P) [Moles/Vol] 40.0 umol/L [address] [facility] HH, Hemoglobin AND Hematocri ton 07-17-2024 Hematocrit (Bld) [Volume fraction] 24.0 % Low 37-47 [facility] Comment on above: Order Comment: 211.1 Performed By: #### L 100.0600 #### [facility] [address] [place], [address] Hemoglobin (Bld) [Mass/Vol] 7.4 g/dL Low 12.0-15.0 [facility] Comment on above: Order Comment: 211.1 Performed By: #### L 100.0600 #### [facility] [address] [place], [address] Hematocrit Auto (Bld) [Volum e fraction]Ordered By: Julieth Olmedo on 07-17-2024 Hematocrit (Bld) [Volume fraction] 24.0 % Low 37-47 [facility] Hemoglobin measurementOrdere d By: Julieth Olmedo on 07-17-2024 Hemoglobin (Bld) [Mass/Vol] 7.4 g/dL Low 12.0-15.0 [facility] Ammoniaon 07-11-2024 Ammonia (P) [Moles/Vol] 44.0 umol/L High [facility] Comment on above: Performed By: #### L 500.4050, L503.5510 #### [facility] [address] [place], [address] Venous blood ammonia measure mentOrdered By: Julieth Olmedo on 07-11-2024 Ammonia (P) [Moles/Vol] 44.0 umol/L High [address] [place] [address] Folates, (Folic Acid)on FOLATES 11.90 ng/mL Normal 3.1-55.4 [facility] Comment on above: Order Comment: 211.1 Performed By: #### L 500.4050, L503.5510 #### [facility] [address] [place], [address] HH, Hemoglobin AND Hematocri ton 07-10-2024 Hematocrit (Bld) [Volume fraction] 25.2 % Low 37-47 [facility] Comment on above: Order Comment: 211.1 Performed By: #### L 500.4050, L503.5510 #### [facility] [address] [place], [address] Hemoglobin (Bld) [Mass/Vol] 7.7 g/dL Low 12.0-15.0 [facility] Comment on above: Order Comment: 211.1 Performed By: #### L 500.4050, L503.5510 #### [facility] [address] [place], [address] Ironon 07-10-2024 Iron [Mass/Vol] 73 ug/dL Normal 50-170 [facility] Comment on above: Order Comment: 211.1 Performed By: #### L 500.4050, L503.5510 #### [facility] [address] [place], [address] Vitamin B12on 07-10-2024 Cobalamin (Vitamin B12) [Mass/Vol] 1301 pg/mL High 211-911 [facility] Comment on above: Order Comment: 211.1 Performed By: #### L 500.4050, L503.5510 #### [facility] [address] [place], [address] CBC-Complete Blood Cnt No Di ffon 07-09-2024 Erythrocyte distribution width (RBC) [Ratio] 14.6 % Normal 11.6-14.6 [facility] Comment on above: Order Comment: 211.1 Performed By: #### L 100.0500, L501.9985, L500.4050 #### [facility] [address] [place], [address] Hematocrit (Bld) [Volume fraction] 25.6 % Low 37-47 [facility] Comment on above: Order Comment: 211.1 Performed By: #### L 100.0500, L501.9985, L500.4050 #### [facility] [address] [place], [address] Hemoglobin (Bld) [Mass/Vol] 7.8 g/dL Low 12.0-15.0 [facility] Comment on above: Order Comment: 211.1 Performed By: #### L 100.0500, L501.9985, L500.4050 #### [facility] [address] [place], [address] MCH (RBC) [Entitic mass] 30.4 pg Normal 27.0-32.0 [facility] Comment on above: Order Comment: 211.1 Performed By: #### L 100.0500, L501.9985, L500.4050 #### [facility] [address] [place], [address] MCHC (RBC) [Mass/Vol] 30.5 g/dL Low 32-36 [facility] Comment on above: Order Comment: 211.1 Performed By: #### L 100.0500, L501.9985, L500.4050 #### [facility] [address] [place], [address] MCV (RBC) [Entitic vol] 99.6 fL High 81-99 [facility] Comment on above: Order Comment: 211.1 Performed By: #### L 100.0500, L501.9985, L500.4050 #### [facility] [address] [place], [address] Platelet mean volume (Bld) [Entitic vol] 10.7 fL Normal 6.2-12.0 [facility] Comment on above: Order Comment: 211.1 Performed By: #### L 100.0500, L501.9985, L500.4050 #### [facility] [address] [place], [address] Platelets (Bld) [#/Vol] 112 10*3/uL Low 150-450 [facility] Comment on above: Order Comment: 211.1 Performed By: #### L 100.0500, L501.9985, L500.4050 #### [facility] [address] [place], [address] RBC (Bld) [#/Vol] 2.57 10*6/uL Low 4.2-5.4 [facility] Comment on above: Order Comment: 211.1 Performed By: #### L 100.0500, L501.9985, L500.4050 #### [facility] [address] [place], [address] RDW SD 52.4 fl High 35.1-43.9 [facility] Comment on above: Order Comment: 211.1 Performed By: #### L 100.0500, L501.9985, L500.4050 #### [facility] [address] [place], [address] WBC (Bld) [#/Vol] 5.1 10*3/uL Normal 4.4-11.0 [facility] Comment on above: Order Comment: 211.1 Performed By: #### L 100.0500, L501.9985, L500.4050 #### [facility] [address] [place], [address] Comprehensive Metabolic Prof ilon 07-09-2024 Albumin [Mass/Vol] 2.3 g/dL Low 3.2-5.0 [facility] Comment on above: Order Comment: 211.1 Performed By: #### L 100.0500, L501.9985, L500.4050 #### [facility] [address] [place], [address] Albumin/Globulin [Mass ratio] 0.8 {ratio} Low 0.9-2.4 [facility] Comment on above: Order Comment: 211.1 Performed By: #### L 100.0500, L501.9985, L500.4050 #### [facility] [address] [place], [address] ALK P 122 U/L High 45-117 [facility] Comment on above: Order Comment: 211.1 Performed By: #### L 100.0500, L501.9985, L500.4050 #### [facility] [address] [place], [address] ALT [Catalytic activity/Vol] 30 U/L Normal 13-56 [facility] Comment on above: Order Comment: 211.1 Performed By: #### L 100.0500, L501.9985, L500.4050 #### [facility] [facility] [address] [place], [address] AST [Catalytic activity/Vol] 42 U/L High 15-37 [facility] Comment on above: Order Comment: 211.1 Performed By: #### L 100.0500, L501.9985, L500.4050 #### [facility] [address] [place], [address] Bilirubin [Mass/Vol] 0.80 mg/dL Normal 0.20-1.00 [facility] Comment on above: Order Comment: 211.1 Result Comment: For patients on eltrombopag therapy, use of Dimension [place] TBIL is not recommended. Performed By: #### L 100.0500, L501.9985, L500.4050 #### [facility] [address] [place], [address] BUN/CRE 14.2 RATIO Normal 10-20 [facility] Comment on above: Order Comment: 211.1 Performed By: #### L 100.0500, L501.9985, L500.4050 #### [facility] [address] [place], [address] CA,Total 8.9 mg/dL Normal 8.5-10.1 [facility] Comment on above: Order Comment: 211.1 Performed By: #### L 100.0500, L501.9985, L500.4050 #### [facility] [address] [place], [address] Chloride [Moles/Vol] 109 mmol/L High 98-107 [facility] Comment on above: Order Comment: 211.1 Performed By: #### L 100.0500, L501.9985, L500.4050 #### [facility] [address] [place], [address] CO2 [Moles/Vol] 27.0 mmol/L Normal 21.0-32.0 [facility] Comment on above: Order Comment: .1 Performed By: #### L 100.0500, L501.9985, L500.4050 #### [facility] [address] [place], [address] Creatinine [Mass/Vol] 1.13 mg/dL High 0.55-1.02 [facility] Comment on above: Order Comment: 211.1 Result Comment: The validity of the calculated GFR GFRAA in patients over 70 years has not been determined. Clinical correlation is essential. Performed By: #### L 100.0500, L501.9985, L500.4050 #### [facility] [address] [place], [address] EST GFR - AA 60 mL/min Normal >60 [facility] Comment on above: Order Comment: .1 Result Comment: Afri can Dominican GFR Calc Performed By: #### L 100.0500, L501.9985, L500.4050 #### [facility] [address] [place], [address] GAP 6 Normal 5-15 [facility] Comment on above: Order Comment: .1 Performed By: #### L 100.0500, L501.9985, L500.4050 #### [facility] [address] [place], [address] GFR/1.73 sq M.predicted among non-blacks MDRD (S/P/Bld) [Vol rate/Area] 49 mL/min/{1.73_m2} Low >60 [facility] Comment on above: Order Comment: 211.1 Result Comment: Non- GFR Calc Performed By: #### L 100.0500, L501.9985, L500.4050 #### [facility] [address] [place], [address] Globulin (S) [Mass/Vol] 3.0 g/dL Normal 2.2-4.2 [facility] Comment on above: Order Comment: 211.1 Performed By: #### L 100.0500, L501.9985, L500.4050 #### [facility] [address] [place], [address] Glucose [Mass/Vol] 120 mg/dL High 74-106 [facility] Comment on above: Order Comment: 211.1 Result Comment: Fast ing Glucose result from 100 to 125 mg/dL suggests IMPAIRED HOMEOSTASIS per A.D.A. criteria. Performed By: #### L 100.0500, L501.9985, L500.4050 #### [facility] [address] [place], [address] Potassium [Moles/Vol] 3.4 mmol/L Low 3.5-5.1 [facility] Comment on above: Order Comment: 211.1 Performed By: #### L 100.0500, L501.9985, L500.4050 #### [facility] [address] [place], [address] Sodium [Moles/Vol] 142 mmol/L Normal 136-145 [facility] Comment on above: Order Comment: 211.1 Performed By: #### L 100.0500, L501.9985, L500.4050 #### [facility] [address] [place], [address] T PROT 5.3 g/dL Low 6.4-8.2 [facility] Comment on above: Order Comment: 211.1 Performed By: #### L 100.0500, L501.9985, L500.4050 #### [facility] [address] [place], [address] Urea nitrogen [Mass/Vol] 16 mg/dL Normal 7-18 [facility] Comment on above: Order Comment: 211.1 Performed By: #### L 100.0500, L501.9985, L500.4050 #### [facility] [address] [place], [address] Hemoglobin A1con 07-09-2024 HbA1c (Bld) [Mass fraction] 5.5 % Normal 3.8-5.6 [facility] Comment on above: Order Comment: 211.1 Result Comment: Norm al < 5.7 % Prediabetic 5.7 - 6.4 % Diabetic >or= 6.5 % Please note range changes. Performed By: #### L 100.0500, L501.9985, L500.4050 #### [facility] [address] [place], [address] [id number] 07-06-2024 [id number] Patient Choice Patient Name: MIKEL WINSTON Date of : 1945 Normal [facility] [id number] 07-04-2024 [id number] Normal [facility] AMMONIAon 07-04-2024 Ammonia (P) [Moles/Vol] 15 umol/L Normal 9-30 [facility] Comment on above: Performed By: #### L AB47 ####Electromedical Equipment Technician: RUTH ANN BRAGG ([phone])[facility] ([facility])[address] [place] [address] CALCIUM, IONIZEDon 4 CALCIUM IONIZED 4.60 mg/dL Normal 4.30-5.20 [facility] Comment on above: Performed By: #### L AB54 ####Electromedical Equipment Technician: RUTH ANN BRAGG ([phone])[facility] ([facility])[address] [place] [address] PH, IONIZED CALCIUM 7.47 High 7.31-7.46 [facility] Comment on above: Performed By: #### L AB54 ####Electromedical Equipment Technician: RUTH ANN BRAGG ([phone])[facility] ([facility])[address] CBC W Auto Differential pane l [...] 2.7 10*3/uL 1. 8 - 7.5 10*3/uL [facility] Neutrophils/100 WBC (Bld) 48.1 % 38 .0 - 82.0 % [facility] Nucleated RBC/100 WBC (Bld) [Ratio] 0 % [facility] Platelet mean volume (Bld) [Entitic vol] 10.9 fL 9.0 - 12.7 fL [facility] Platelets (Bld) [#/Vol] 94 10*3/uL Low 140 - 440 10*3/uL [facility] RBC (Bld) [#/Vol] 2.48 10*6/uL Low 3.80 - 5.2 0 10*6/uL [facility] WBC (Bld) [#/Vol] 5.7 10*3/uL 3.6 - 10.7 10*3/uL [facility] CBC WITH AUTO DIFFERENTIALon 07-04-2024 Basophils (Bld) [#/Vol] 0.0 10*3/uL Normal 0.0-0.2 [facility] Comment on above: Performed By: #### L [id number] ####Electromedical Equipment Technician: RUTH ANN BRAGG ([phone])[facility] [place] ([facility])[address] Basophils/100 WBC (Bld) 0.5 % Normal 0.0-2.0 [facility] Comment on above: Performed By: #### L [id number] ####Electromedical Equipment Technician: RUTH ANN BRAGG ([phone])[facility] [place] ([facility])[address] Eosinophils (Bld) [#/Vol] 0.4 10*3/uL Normal 0.0-0.5 [facility] Comment on above: Performed By: #### L [id number] ####Electromedical Equipment Technician: RUTH ANN BRAGG ([phone])[facility] [place] ([facility])[address] Eosinophils/100 WBC (Bld) 6.3 % High 0.0-6.0 [facility] Comment on above: Performed By: #### L [id number] ####Electromedical Equipment Technician: RUTH ANN [phone])[facility] [place] ([facility])[address] Erythrocyte distribution width (RBC) [Ratio] 14.5 % Normal 11.5-15.0 [facility] Comment on above: Performed By: #### L [id number] ####Electromedical Equipment Technician: RUTH ANN BRAGG ([phone])[facility] [place] ([facility])[address] Hematocrit (Bld) [Volume fraction] 25.2 % Low 35.0-47.0 [facility] Comment on above: Performed By: #### L [id number] ####Electromedical Equipment Technician: RUTH ANN BRAGG ([phone])[facility] ([facility])[address] Hemoglobin (Bld) [Mass/Vol] 7.7 g/dL Low 11.7-16.0 [facility] Comment on above: Performed By: #### L [id number] ####Electromedical Equipment Technician: RUTH ANN BRAGG ([phone])[facility] [place] ([facility])[address] IMMATURE GRANS % 0.5 % Normal 0.0-2.0 [facility] Comment on above: Performed By: #### L [id number] ####Electromedical Equipment Technician: RUTH ANN BRAGG ([phone])[facility] [place] ([facility])[address] IMMATURE GRANS ABSOLUTE 0.0 10*3/uL Normal <0.1 [facility] Comment on above: Performed By: #### L [id number] ####Electromedical Equipment Technician: RUTH ANN BRAGG ([phone])[facility] [place] ([facility])[address] IPF 3 Normal [facility] Comment on above: Performed By: #### L [id number] ####Electromedical Equipment Technician: RUTH ANN BRAGG ([phone])[facility] [place] ([facility])[address] Lymphocytes (Bld) [#/Vol] 1.4 10*3/uL Normal 1.0-4.3 [facility] Comment on above: Performed By: #### L [id number] ####Electromedical Equipment Technician: RUTH ANN HERRONSHELTON ([id number])[facility] [place] ([facility])[address] Lymphocytes/100 WBC (Bld) 24.4 % Normal 15.0-45.0 [facility] Comment on above: Performed By: #### L [id number] ####Electromedical Equipment Technician: RUTH ANN BRAGG ([id number])[facility] ([facility])[address] MCH (RBC) [Entitic mass] 31.0 pg Normal 26.0-34.0 [facility] Comment on above: Performed By: #### L [id number] ####Electromedical Equipment Technician: RUTH ANN BRAGG ([phone])[facility] ([facility])[address] MCHC 30.6 % Normal 30.5-36.0 [facility] Comment on above: Performed By: #### L [id number] ####Electromedical Equipment Technician: RUTH ANN BRAGG ([phone])[facility] ([facility])[address] MCV (RBC) [Entitic vol] 101.6 fL High 77.0-99.0 [facility] Comment on above: Performed By: #### L [id number] ####Electromedical Equipment Technician: RUTH ANN RBAGG ([phone])[facility] ([facility])[address] Monocytes (Bld) [#/Vol] 1.2 10*3/uL High 0.0-0.9 [facility] Comment on above: Performed By: #### L [id number] ####Electromedical Equipment Technician: RUTH ANN BRAGG ([id number])[facility] ([facility])[address] Monocytes/100 WBC (Bld) 20.2 % High 5.0-13.0 [facility] Comment on above: Performed By: #### L [id number] ####Electromedical Equipment Technician: RUTH ANN BRAGG ([id number])[facility] [place] ([facility])[address] NEUTROPHILS ABSOLUTE 2.7 10*3/uL Normal 1.8-7.5 [facility] Comment on above: Performed By: #### L [id number] ####Electromedical Equipment Technician: RUTH ANN BRAGG ([phone])[facility] [place] ([facility])[address] Neutrophils/100 WBC (Bld) 48.1 % Normal 38.0-82.0 [facility] Comment on above: Performed By: #### L [id number] ####Electromedical Equipment Technician: RUTH ANN BRAGG ([phone])[facility] [place] ([facility])[address] NRBC 0.0 /100 WBCs Normal 0.0-2.0 [facility] Comment on above: Performed By: #### L [id number] ####Electromedical Equipment Technician: RUTH ANN BRAGG ([id number])[facility] [place] ([facility])[address] Platelet mean volume (Bld) [Entitic vol] 10.9 fL Normal 9.0-12.7 [facility] Comment on above: Performed By: #### L [id number] ####Electromedical Equipment Technician: RUTH ANN BRAGG ([phone])[facility] [place] ([facility])[address] [place] [address] [place] Platelets (Bld) [#/Vol] 94 10*3/uL Low 140-440 [facility] Comment on above: Performed By: #### L [id number] ####Electromedical Equipment Technician: RUTH ANN BRAGG ([id number])[facility] [place] ([facility])[address] [place] [address] [place] RBC (Bld) [#/Vol] 2.48 10*6/uL Low 3.80-5.20 [facility] Comment on above: Performed By: #### L [id number] ####Electromedical Equipment Technician: RUTH ANN BRAGG ([phone])[facility] [place] ([facility])[address] WBC (Bld) [#/Vol] 5.7 10*3/uL Normal 3.6-10.7 [facility] Comment on above: Performed By: #### L [id number] ####Electromedical Equipment Technician: RUTH ANN BRAGG ([phone])[facility] [place] ([facility])[address] COMPREHENSIVE METABOLIC PANE Smith 07-04-2024 Albumin [Mass/Vol] 2.3 g/dL Low 3.5-5.0 [facility] Comment on above: Performed By: #### L AB17, KCG185, SOS465 ####Electromedical Equipment Technician: RUTH ANN BRAGG ([id number])[facility] [place] ([facility])[address] ALP [Catalytic activity/Vol] 113 U/L Normal 38-126 [facility] Comment on above: Performed By: #### L AB17, UUP781, UVB674 ####Electromedical Equipment Technician: RUTH ANN BRAGG ([id number])[facility] [place] ([facility])[address] ALT [Catalytic activity/Vol] 28 U/L Normal 0-34 [facility] Comment on above: Performed By: #### L AB17, BGT128, WQQ971 ####Electromedical Equipment Technician: RUTH ANN BRAGG ([id number])[facility] [place] ([facility])[address] Anion gap [Moles/Vol] -1 mmol/L Low 3-13 [facility] Comment on above: Performed By: #### L AB17, GKF727, UHF636 ####Electromedical Equipment Technician: RUTH ANN BRAGG ([phone])[facility] [place] ([facility])[address] [place] [address] [place] AST [Catalytic activity/Vol] 49 U/L High 15-46 [facility] Comment on above: Performed By: #### L AB17, NTP662, LDL607 ####Electromedical Equipment Technician: RUTH ANN BRAGG ([id number])[facility] [place] ([facility])[address] Bilirubin [Mass/Vol] 0.6 mg/dL Normal 0.2-1.3 [facility] Comment on above: Performed By: #### L AB17, HUY403, LHJ864 ####Electromedical Equipment Technician: RUTH ANN BRAGG ([id number])[facility] [place] ([facility])[address] Calcium [Mass/Vol] 8.4 mg/dL Normal 8.4-10.4 [facility] Comment on above: Performed By: #### L AB17, KKJ289, BGV123 ####Electromedical Equipment Technician: RUTH ANN BRAGG ([phone])[facility] [place] ([facility])[address] [place] [address] [place] Chloride [Moles/Vol] 110 mmol/L High 98-107 [facility] Comment on above: Performed By: #### L AB17, AWU855, YZL378 ####Electromedical Equipment Technician: RUTH ANN BRAGG ([phone])[facility] [place] ([facility])[address] [place] [address] [place] CO2 [Moles/Vol] 28 mmol/L Normal 22-30 [facility] Comment on above: Performed By: #### L AB17, XIO329, OYL966 ####Electromedical Equipment Technician: RUTH ANN BRAGG ([id number])[facility] [place] ([facility])[address] [place] [address] [place] Creatinine [Mass/Vol] 1.22 mg/dL High 0.52-1.04 [facility] Comment on above: Performed By: #### L AB17, KCJ319, GJF441 ####Electromedical Equipment Technician: RUTH ANN BRGAG ([phone])[facility] [place] ([facility])[address] [place] [address] [place] GLOMERULAR FILTRATION RATE ML/MIN/1.73 SQ M.PREDICTED 45.5 mL/min/1.73m*2 Low >60.0 [facility] Comment on above: Result Comment: Calc ulation based on the Chronic Kidney Disease Epidemiology Collaboration (CKD-EPI) equation refit without adjustment for race Performed By: #### L AB17, GLR375, VSF873 ####Electromedical Equipment Technician: RUTH ANN BRAGG ([phone])[facility] [place] ([facility])[address] Glucose [Mass/Vol] 98 mg/dL Normal 70-100 [facility] Comment on above: Performed By: #### L AB17, CGT540, NYF028 ####Electromedical Equipment Technician: RUTH ANN BRAGG ([phone])[facility] [place] ([facility])[address] [place] [address] [place] Potassium [Moles/Vol] 3.8 mmol/L Normal 3.5-5.1 [facility] Comment on above: Performed By: #### L AB17, NYR044, EVT182 ####Electromedical Equipment Technician: RUTH ANN BRAGG ([id number])[facility] [place] ([facility])[address] [place] [address] [place] Protein [Mass/Vol] 4.9 g/dL Low 6.3-8.2 [facility] Comment on above: Performed By: #### L AB17, NLX944, CVD264 ####Electromedical Equipment Technician: RUTH ANN BRAGG ([phone])[facility] ([facility])[address] [place] [address] [place] Sodium [Moles/Vol] 136 mmol/L Normal 135-145 [facility] Comment on above: Performed By: #### L AB17, UAH605, QWT869 ####Electromedical Equipment Technician: RUTH ANN BRAGG ([phone])[facility] ([facility])[address] [place] [address] [place] Urea nitrogen [Mass/Vol] 20 mg/dL High 7-17 [facility] Comment on above: Performed By: #### L AB17, MXJ220, VYQ143 ####Electromedical Equipment Technician: RUTH ANN BRAGG ([phone])[facility] ([facility])[address] [place] [address] Calcium.ionized [Moles/Vol]o n 07-04-2024 Calcium.ionized (Bld) [Moles/Vol] 4.6 mg/dL 4.30 - 5.20 mg/dL [facility] Interpretation and review of laboratory results Abnormal [facility] PH, IONIZED CALCIUM 7.47 High 7.31 - 7.46 [facility] Comprehensive metabolic 1998 panelon 07-04-2024 Albumin [Mass/Vol] 2.3 g/dL Low 3.5 - 5.0 g/dL [facility] ALP [Catalytic activity/Vol] 113 U/L 38 - 126 U/L [facility] ALT [Catalytic activity/Vol] 28 U/L 0 - 34 U/L [facility] Anion gap [Moles/Vol] -1 mmol/L Low 3 - 13 mmol/L [facility] AST [Catalytic activity/Vol] 49 U/L High 15 - 46 U/L [facility] Bilirubin [Mass/Vol] 0.6 mg/dL 0.2 - 1 .3 mg/dL [facility] Calcium [Mass/Vol] 8.4 mg/dL 8.4 - 10. 4 mg/dL [facility] Chloride [Moles/Vol] 110 mmol/L High 98 - 10 7 mmol/L [facility] CO2 [Moles/Vol] 28 mmol/L 22 - 30 mmol/L [facility] Creatinine [Mass/Vol] 1.22 mg/dL High 0.52 - 1.04 mg/dL [facility] GFR/1.73 sq M.predicted (S/P/Bld) [Vol rate/Area] 45.5 mL/min Low - PINF [facility] Glucose [Mass/Vol] 98 mg/dL 70 - 100 mg/dL [facility] Interpretation and review of laboratory results Abnormal [facility] Potassium [Moles/Vol] 3.8 mmol/L 3.5 - 5.1 mmol/L [facility] Protein [Mass/Vol] 4.9 g/dL Low 6.3 - 8.2 g/dL [facility] Sodium [Moles/Vol] 136 mmol/L 135 - 145 mmol/L [facility] Urea nitrogen [Mass/Vol] 20 mg/dL High 7 - 17 mg/dL [facility] Laboratory - Chemistry and C hemistry - challengeon 07-04-2024 Glucose [Mass/Vol] 104 mg/dL High 70 - 100 mg/dL [facility] Magnesium [Mass/Vol] 1.9 mg/dL 1.6 - 2 .3 mg/dL [facility] Ammonia (P) [Moles/Vol] 15 umol/L 9 - 30 umol/L [facility] MAGNESIUMon 07-04-2024 Magnesium [Mass/Vol] 1.9 mg/dL Normal 1.6-2.3 [facility] Comment on above: Performed By: #### L AB17, IKD934, NPK516 ####Electromedical Equipment Technician: RUTH ANN BRAGG ([phone])[facility] ([facility])[address] [place] [address] No Panel Informationon 07-04 Interpretation and review of laboratory results Abnormal [facility] Interpretation and review of laboratory results Normal [facility] Interpretation and review of laboratory results Normal [facility] PHOSPHORUSon 07-04-2024 Phosphate [Mass/Vol] 3.6 mg/dL Normal 2.5-4.5 [facility] Comment on above: Performed By: #### L AB17, BXU303, OGU764 ####Electromedical Equipment Technician: RUTH ANN BRAGG ([phone])[facility] [place] [address] Phosphate [Moles/Vol]on 06-09 Phosphate [Mass/Vol] 3.6 mg/dL 2.5 - 4 .5 mg/dL [facility] Progress Noteon 07-04-2024 Progress Note Normal [facility] 30on 07-03-2024 30 Normal [facility] 30 Normal [facility] [id number] 07-03-2024 [id number] Discussed with primary team attending Dr. Gutierrez today. Patient's condition improving. Patient planned for discharge to SNF. Since patient, family have clearly established goals, our team will sign off at this time. Pricilla Steinberg MD 07/03/24 8:53 PM Normal [facility] [id number] Normal [facility] [id number] Normal [facility] [id number] Normal [facility] [id number] Discharge med list transmitted to [facility] via [facility] per [facility] request. 7000 was entered into [facility] for the SNF- FACILITY IS AWARE Normal [facility] [id number] Normal [facility] AMMONIAon 07-03-2024 Ammonia (P) [Moles/Vol] 18 umol/L Normal 9-30 [facility] Comment on above: Performed By: #### L AB47 ####Electromedical Equipment Technician: RUTH ANN BRAGG ([phone])[facility] [place] [address] CALCIUM, IONIZEDon 4 CALCIUM IONIZED 4.50 mg/dL Normal 4.30-5.20 [facility] Comment on above: Performed By: #### L AB54 ####Electromedical Equipment Technician: RUTH ANN BRAGG ([phone])[facility] ([facility])[address] [place] [address] PH, IONIZED CALCIUM 7.46 Normal 7.31-7.46 [facility] Comment on above: Performed By: #### L AB54 ####Electromedical Equipment Technician: RUTH ANN BRAGG ([phone])[facility] [place] [address] CBC W Auto Differential pane l (Bld)on 07-03-2024 Basophils (Bld) [#/Vol] 0 10*3/uL 0.0 - 0.2 10*3/uL [facility] Basophils/100 WBC (Bld) 0.4 % 0.0 - 2.0 % [facility] Eosinophils (Bld) [#/Vol] 0.4 10*3/uL 0. 0 - 0.5 10*3/uL [facility] Eosinophils/100 WBC (Bld) 5.7 % 0.0 - 6.0 % [facility] Erythrocyte distribution width (RBC) [Ratio] 14.6 % 11.5 - 15.0 % [facility] Hematocrit (Bld) [Volume fraction] 23.3 % Low 35.0 - 47.0 % [facility] Hemoglobin (Bld) [Mass/Vol] 7.1 g/dL Low 11.7 - 16.0 g/dL [facility] Immature granulocytes (Bld) [#/Vol] 0 10*3/uL NINF - 0.1 10*3/uL [facility] Immature granulocytes/100 WBC (Bld) 0.6 % 0.0 - 2.0 % [facility] Interpretation and review of laboratory results Abnormal [facility] th IPF 3 [facility] Lymphocytes (Bld) [#/Vol] 1.4 10*3/uL 1. 0 - 4.3 10*3/uL [facility] Lymphocytes/100 WBC (Bld) 19.8 % 15 .0 - 45.0 % [facility] MCH (RBC) [Entitic mass] 30.9 pg 26. 0 - 34.0 pg [facility] MCHC (RBC) [Mass/Vol] 30.5 % 30.5 - 36.0 % [facility] MCV (RBC) [Entitic vol] 101.3 fL High 77.0 - 99.0 fL [facility] Monocytes (Bld) [#/Vol] 1.3 10*3/uL High 0.0 - 0.9 10*3/uL [facility] Monocytes/100 WBC (Bld) 18.5 % High 5.0 - 13.0 % [facility] Neutrophils (Bld) [#/Vol] 3.8 10*3/uL 1. 8 - 7.5 10*3/uL [facility] Neutrophils/100 WBC (Bld) 55 % 38 .0 - 82.0 % [facility] Nucleated RBC/100 WBC (Bld) [Ratio] 0 % [facility] Platelet mean volume (Bld) [Entitic vol] 11.5 fL 9.0 - 12.7 fL [facility] Platelets (Bld) [#/Vol] 84 10*3/uL Low 140 - 440 10*3/uL [facility] RBC (Bld) [#/Vol] 2.3 10*6/uL Low 3.80 - 5.2 0 10*6/uL [facility] WBC (Bld) [#/Vol] 6.9 10*3/uL 3.6 - 10.7 10*3/uL [facility] CBC WITH AUTO DIFFERENTIALon 07-03-2024 Basophils (Bld) [#/Vol] 0.0 10*3/uL Normal 0.0-0.2 [facility] Comment on above: Performed By: #### L [id number] ####Electromedical Equipment Technician: RUTH ANN BRAGG ([phone])[facility] [place] (SBHLAB)[address] Basophils/100 WBC (Bld) 0.4 % Normal 0.0-2.0 [facility] Comment on above: Performed By: #### L [id number] ####Electromedical Equipment Technician: RUTH ANN BRAGG ([phone])[facility] [place] (SB[facility])[address] Eosinophils (Bld) [#/Vol] 0.4 10*3/uL Normal 0.0-0.5 [facility] Comment on above: Performed By: #### L [id number] ####Electromedical Equipment Technician: RUTH ANN BRAGG ([phone])[facility] [place] (SBHLAB)[address] Eosinophils/100 WBC (Bld) 5.7 % Normal 0.0-6.0 [facility] Comment on above: Performed By: #### L [id number] ####Electromedical Equipment Technician: RUTH ANN BRAGG ([phone])[facility] [place] (SBHLAB)[address] Erythrocyte distribution width (RBC) [Ratio] 14.6 % Normal 11.5-15.0 [facility] Comment on above: Performed By: #### L [id number] ####Electromedical Equipment Technician: RUTH ANN BRAGG ([phone])[facility] [place] (SBHLAB)[address] Hematocrit (Bld) [Volume fraction] 23.3 % Low 35.0-47.0 [facility] Comment on above: Performed By: #### L [id number] ####Electromedical Equipment Technician: RUTH ANN BRAGG ([phone])[facility] (SBHLAB)[address] Hemoglobin (Bld) [Mass/Vol] 7.1 g/dL Low 11.7-16.0 [facility] Comment on above: Performed By: #### L [id number] ####Electromedical Equipment Technician: RUTH ANN BRAGG ([phone])[facility] [place] (SBHLAB)[address] IMMATURE GRANS % 0.6 % Normal 0.0-2.0 [facility] Comment on above: Performed By: #### L [id number] ####Electromedical Equipment Technician: RUTH ANN BRAGG ([phone])[facility] ([facility] IMMATURE GRANS ABSOLUTE 0.0 10*3/uL Normal <0.1 [facility] Comment on above: Performed By: #### L [id number] ####Electromedical Equipment Technician: RUTH ANN BRAGG ([phone])[facility] (HLAB)[address] [place] [address] IPF 3 Normal [facility] Comment on above: Performed By: #### L [id number] ####Electromedical Equipment Technician: RUTH ANN BRAGG ([phone])[facility] (SBHLAB)[address] Lymphocytes (Bld) [#/Vol] 1.4 10*3/uL Normal 1.0-4.3 [facility] Comment on above: Performed By: #### L [id number] ####Electromedical Equipment Technician: RUTH ANN BRAGG ([phone])[facility] (SBHLAB)[address] Lymphocytes/100 WBC (Bld) 19.8 % Normal 15.0-45.0 [facility] Comment on above: Performed By: #### L [id number] ####Electromedical Equipment Technician: RUTH ANN BRAGG ([phone])[facility] (SBHLAB)[address] MCH (RBC) [Entitic mass] 30.9 pg Normal 26.0-34.0 [facility] Comment on above: Performed By: #### L [id number] ####Electromedical Equipment Technician: RUTH ANN BRAGG ([phone])[facility] (SBHLAB)[address] MCHC 30.5 % Normal 30.5-36.0 [facility] Comment on above: Performed By: #### L [id number] ####Electromedical Equipment Technician: RUTH ANN HERRONSHELTNO ([phone])[facility] (SBHLAB)[address] [place] [address] MCV (RBC) [Entitic vol] 101.3 fL High 77.0-99.0 [facility] Comment on above: Performed By: #### L [id number] ####Electromedical Equipment Technician: RUTH ANN BRAGG ([phone])[facility]ITAL[facility] [place] (SBHLAB)[address] [place] [address] Monocytes (Bld) [#/Vol] 1.3 10*3/uL High 0.0-0.9 [facility] Comment on above: Performed By: #### L [id number] ####Electromedical Equipment Technician: RUTH ANN BRAGG ([phone])[facility] [place] (SBHLAB)[address] [place] [address] Monocytes/100 WBC (Bld) 18.5 % High 5.0-13.0 [facility] Comment on above: Performed By: #### L [id number] ####Electromedical Equipment Technician: RUTH ANN BRAGG ([phone])[facility] (SBHLAB)[address] [place] [address] NEUTROPHILS ABSOLUTE 3.8 10*3/uL Normal 1.8-7.5 [facility] Comment on above: Performed By: #### L [id number] ####Electromedical Equipment Technician: RUTH ANN BRAGG ([id number])[facility] (SBHLAB)[address] Neutrophils/100 WBC (Bld) 55.0 % Normal 38.0-82.0 [facility] Comment on above: Performed By: #### L [id number] ####Electromedical Equipment Technician: RUTH ANN BRAGG ([phone])[facility] [place] (SBHLAB)[address] NRBC 0.0 /100 WBCs Normal 0.0-2.0 [facility] Comment on above: Performed By: #### L [id number] ####Electromedical Equipment Technician: RUTH ANN BRAGG ([id number])[facility]ITAL[facility] (SBHLAB)[address] Platelet mean volume (Bld) [Entitic vol] 11.5 fL Normal 9.0-12.7 [facility] Comment on above: Performed By: #### L [id number] ####Electromedical Equipment Technician: RUTH ANN BRAGG ([id number])[facility] [place] (SBHLAB)[address] [place] [address] [place] Platelets (Bld) [#/Vol] 84 10*3/uL Low 140-440 [facility] Comment on above: Performed By: #### L [id number] ####Electromedical Equipment Technician: RUTH ANN BRAGG ([phone])[facility] [place] (SBHLAB)[address] [place] [address] [place] RBC (Bld) [#/Vol] 2.30 10*6/uL Low 3.80-5.20 [facility] Comment on above: Performed By: #### L [id number] ####Electromedical Equipment Technician: RUTH ANN BRAGG ([phone])[facility] [place] (SBHLAB)[address] [place] [address] [place] WBC (Bld) [#/Vol] 6.9 10*3/uL Normal 3.6-10.7 [facility] Comment on above: Performed By: #### L [id number] ####Electromedical Equipment Technician: RUTH ANN BRAGG ([phone])[facility] (SBHLAB)[address] COMPREHENSIVE METABOLIC PANE Smith 07-03-2024 Albumin [Mass/Vol] 2.1 g/dL Low 3.5-5.0 [facility] Comment on above: Performed By: #### L AB17, AXS892, HLF633 ####Electromedical Equipment Technician: RUTH ANN BRAGG ([id number])[facility]ITAL[facility] [place] (SBHLAB)[address] ALP [Catalytic activity/Vol] 87 U/L Normal 38-126 [facility] Comment on above: Performed By: #### L AB17, UEB128, QQG851 ####Electromedical Equipment Technician: RUTH ANN BRAGG ([phone])[facility] (SBHLAB)[address] ALT [Catalytic activity/Vol] 27 U/L Normal 0-34 [facility] Comment on above: Performed By: #### L AB17, BWK127, WNY989 ####Electromedical Equipment Technician: RUTH ANN BRAGG ([id number])[facility] [place] (SBHLAB)[address] Anion gap [Moles/Vol] -1 mmol/L Low 3-13 [facility] Comment on above: Performed By: #### L AB17, WRG664, KRX448 ####Electromedical Equipment Technician: RUTH ANN BRAGG ([id number])[facility]ITAL[facility]ET[facility] (SBHLAB)[address] AST [Catalytic activity/Vol] 45 U/L Normal 15-46 [facility] Comment on above: Performed By: #### L AB17, WRP101, GHU101 ####Electromedical Equipment Technician: RUTH ANN BRAGG ([id number])[facility] (SBHLAB)[address] [place] [address] [place] Bilirubin [Mass/Vol] 0.6 mg/dL Normal 0.2-1.3 [facility] Comment on above: Performed By: #### L AB17, QIA269, HES377 ####Electromedical Equipment Technician: RUTH ANN BRAGG ([id number])[facility]ITALRyan [facility] (SBHLAB)[address] Calcium [Mass/Vol] 7.9 mg/dL Low 8.4-10.4 [facility] Comment on above: Performed By: #### L AB17, YEG646, DEH629 ####Electromedical Equipment Technician: RUTH ANN BRAGG ([id number])[facility] [place] (SBHLAB)[address] Chloride [Moles/Vol] 111 mmol/L High 98-107 [facility] Comment on above: Performed By: #### L AB17, DKK098, DWS976 ####Electromedical Equipment Technician: RUTH ANN BRAGG ([phone])[facility] [place] (SBHLAB)[address] CO2 [Moles/Vol] 26 mmol/L Normal 22-30 [facility] Comment on above: Performed By: #### L AB17, QNG666, GGE023 ####Electromedical Equipment Technician: RUTH ANN BRAGG ([phone])[facility] [place] (SBHLAB)[address] Creatinine [Mass/Vol] 1.14 mg/dL High 0.52-1.04 [facility] Comment on above: Performed By: #### L AB17, YRP477, DOF108 ####Electromedical Equipment Technician: RUTH ANN BRAGG ([phone])[facility] [place] (SBHLAB)[address] [place] [address] [place] GLOMERULAR FILTRATION RATE ML/MIN/1.73 SQ M.PREDICTED 49.4 mL/min/1.73m*2 Low >60.0 [facility] Comment on above: Result Comment: Calc ulation based on the Chronic Kidney Disease Epidemiology Collaboration (CKD-EPI) equation refit without adjustment for race Performed By: #### L AB17, XFS065, PMX361 ####Electromedical Equipment Technician: RUTH ANN YEMI ([id number])[facility]ITAL[facility] (SBHLAB)[address] Glucose [Mass/Vol] 106 mg/dL High 70-100 [facility] Comment on above: Performed By: #### L AB17, OVY509, NIA735 ####Electromedical Equipment Technician: RUTH ANN OBREGONWILTON ([phone])[facility]ITAL[facility] (SBHLAB)[address] Potassium [Moles/Vol] 3.9 mmol/L Normal 3.5-5.1 [facility] Comment on above: Performed By: #### L AB17, RWV283, EDI568 ####Electromedical Equipment Technician: RUTH ANN YEMI ([phone])[facility] (SBHLAB)[address] Protein [Mass/Vol] 4.6 g/dL Low 6.3-8.2 [facility] Comment on above: Performed By: #### L AB17, LPQ472, BAI514 ####Electromedical Equipment Technician: RUTH ANN OBREGONROBERTASHELTON ([id number])[facility] (SBHLAB)[address] Sodium [Moles/Vol] 136 mmol/L Normal 135-145 [facility] Comment on above: Performed By: #### L AB17, FEI063, XHV340 ####Electromedical Equipment Technician: RUTH ANN OBREGONWILTON ([phone])[facility] (SBHLAB)[address] [place] [address] [place] Urea nitrogen [Mass/Vol] 25 mg/dL High 7-17 [facility] Comment on above: Performed By: #### L AB17, GKZ865, OSI233 ####Electromedical Equipment Technician: RUTH ANN OBREGONWILOTN ([phone])[facility] (SBHLAB)[address] Calcium.ionized [Moles/Vol]o n 07-03-2024 Calcium.ionized (Bld) [Moles/Vol] 4.5 mg/dL 4.30 - 5.20 mg/dL [facility] Interpretation and review of laboratory results Normal [facility] PH, IONIZED CALCIUM 7.46 7.31 - 7.46 [facility] Comprehensive metabolic 1998 panelon 07-03-2024 Albumin [Mass/Vol] 2.1 g/dL Low 3.5 - 5.0 g/dL [facility] ALP [Catalytic activity/Vol] 87 U/L 38 - 126 U/L [facility] ALT [Catalytic activity/Vol] 27 U/L 0 - 34 U/L [facility] Anion gap [Moles/Vol] -1 mmol/L Low 3 - 13 mmol/L [facility] AST [Catalytic activity/Vol] 45 U/L 15 - 46 U/L [facility] Bilirubin [Mass/Vol] 0.6 mg/dL 0.2 - 1 .3 mg/dL [facility] Calcium [Mass/Vol] 7.9 mg/dL Low 8.4 - 10. 4 mg/dL [facility] Chloride [Moles/Vol] 111 mmol/L High 98 - 10 7 mmol/L [facility] CO2 [Moles/Vol] 26 mmol/L 22 - 30 mmol/L [facility] Creatinine [Mass/Vol] 1.14 mg/dL High 0.52 - 1.04 mg/dL [facility] GFR/1.73 sq M.predicted (S/P/Bld) [Vol rate/Area] 49.4 mL/min Low - PINF [facility] Glucose [Mass/Vol] 106 mg/dL High 70 - 100 mg/dL [facility] Interpretation and review of laboratory results Abnormal [facility] Potassium [Moles/Vol] 3.9 mmol/L 3.5 - 5.1 mmol/L [facility] Protein [Mass/Vol] 4.6 g/dL Low 6.3 - 8.2 g/dL [facility] Sodium [Moles/Vol] 136 mmol/L 135 - 145 mmol/L [facility] Urea nitrogen [Mass/Vol] 25 mg/dL High 7 - 17 mg/dL [facility] Laboratory - Chemistry and C hemistry - challengeon 07-03-2024 Glucose [Mass/Vol] 205 mg/dL High 70 - 100 mg/dL [facility] Glucose [Mass/Vol] 210 mg/dL High 70 - 100 mg/dL [facility] Glucose [Mass/Vol] 177 mg/dL High 70 - 100 mg/dL [facility] Glucose [Mass/Vol] 173 mg/dL High 70 - 100 mg/dL [facility] Glucose [Mass/Vol] 105 mg/dL High 70 - 100 mg/dL [facility] Magnesium [Mass/Vol] 1.9 mg/dL 1.6 - 2 .3 mg/dL [facility] Ammonia (P) [Moles/Vol] 18 umol/L 9 - 30 umol/L [facility] MAGNESIUMon 07-03-2024 Magnesium [Mass/Vol] 1.9 mg/dL Normal 1.6-2.3 [facility] Comment on above: Performed By: #### L AB17, JIG066, JYH522 ####Electromedical Equipment Technician: RUTH ANN BRAGG ([phone])[facility] ([facility])[address] [place] [address] No Panel Informationon 07-03 Interpretation and review of laboratory results Abnormal [facility] Interpretation and review of laboratory results Abnormal [facility] Interpretation and review of laboratory results Abnormal [facility] Interpretation and review of laboratory results Abnormal [facility] Interpretation and review of laboratory results Abnormal [facility] Interpretation and review of laboratory results Normal [facility] Interpretation and review of laboratory results Normal [facility] Nursing Noteon 07-03-2024 Nursing Note Report called to [facility]. Pt transport is scheduled for 2:30pm. Normal [facility] PHOSPHORUSon 07-03-2024 Phosphate [Mass/Vol] 3.0 mg/dL Normal 2.5-4.5 [facility] Comment on above: Performed By: #### L AB17, WYT247, DVW868 ####Electromedical Equipment Technician: RUTH ANN BRAGG ([phone])[facility] ([facility])[address] [place] [address] Phosphate [Moles/Vol]on 06-09 Phosphate [Mass/Vol] 3 mg/dL 2.5 - 4 .5 mg/dL [facility] Progress Noteon 07-03-2024 Progress Note [facility] Normal [facility] Progress Note [facility] 30on 07-02-2024 30 Normal [facility] [id number] 07-02-2024 [id number] Normal [facility] [id number] Normal [facility] [id number] Sent therapy notes to [facility] via [facility] per TCC request. Await review and response regarding ability to accept. TCC notified. Normal [facility] [id number] Normal [facility] AMMONIAon 07-02-2024 Ammonia (P) [Moles/Vol] 14 umol/L Normal 9-30 [facility] Comment on above: Performed By: #### L AB47 ####Electromedical Equipment Technician: RUTH ANN BRAGG ([phone])[facility]ITAL[facility] (SBAB)[address] [place] [address] CALCIUM, IONIZEDon 4 CALCIUM IONIZED 4.30 mg/dL Normal 4.30-5.20 [facility] Comment on above: Performed By: #### L AB54 ####Electromedical Equipment Technician: RUTH ANN BRAGG ([phone])[facility] ([facility])[address] [place] [address] PH, IONIZED CALCIUM 7.56 High 7.31-7.46 [facility] Comment on above: Performed By: #### L AB54 ####Electromedical Equipment Technician: RUTH ANN BRAGG ([id number])[facility] (SB[facility])[address] [place] [address] CBC W Auto Differential pane l (Bld)on 07-02-2024 Basophils (Bld) [#/Vol] 0 10*3/uL 0.0 - 0.2 10*3/uL [facility] Basophils/100 WBC (Bld) 0.4 % 0.0 - 2.0 % [facility] Eosinophils (Bld) [#/Vol] 0.5 10*3/uL 0. 0 - 0.5 10*3/uL [facility] Eosinophils/100 WBC (Bld) 6.3 % High 0.0 - 6.0 % [facility] Erythrocyte distribution width (RBC) [Ratio] 14.6 % 11.5 - 15.0 % [facility] Hematocrit (Bld) [Volume fraction] 24.2 % Low 35.0 - 47.0 % [facility] Hemoglobin (Bld) [Mass/Vol] 7.6 g/dL Low 11.7 - 16.0 g/dL [facility] Immature granulocytes (Bld) [#/Vol] 0 10*3/uL NINF - 0.1 10*3/uL [facility] Immature granulocytes/100 WBC (Bld) 0.5 % 0.0 - 2.0 % [facility] Interpretation and review of laboratory results Abnormal [facility] th IPF 4 [facility] Lymphocytes (Bld) [#/Vol] 1.2 10*3/uL 1. 0 - 4.3 10*3/uL [facility] Lymphocytes/100 WBC (Bld) 16.7 % 15 .0 - 45.0 % [facility] MCH (RBC) [Entitic mass] 31.5 pg 26. 0 - 34.0 pg [facility] MCHC (RBC) [Mass/Vol] 31.4 % 30.5 - 36.0 % [facility] MCV (RBC) [Entitic vol] 100.4 fL High 77.0 - 99.0 fL [facility] Monocytes (Bld) [#/Vol] 1.3 10*3/uL High 0.0 - 0.9 10*3/uL [facility] Monocytes/100 WBC (Bld) 17.3 % High 5.0 - 13.0 % [facility] Neutrophils (Bld) [#/Vol] 4.3 10*3/uL 1. 8 - 7.5 10*3/uL [facility] Neutrophils/100 WBC (Bld) 58.8 % 38 .0 - 82.0 % [facility] Nucleated RBC/100 WBC (Bld) [Ratio] 0 % [facility] Platelet mean volume (Bld) [Entitic vol] 11.3 fL 9.0 - 12.7 fL [facility] Platelets (Bld) [#/Vol] 84 10*3/uL Low 140 - 440 10*3/uL [facility] RBC (Bld) [#/Vol] 2.41 10*6/uL Low 3.80 - 5.2 0 10*6/uL [facility] WBC (Bld) [#/Vol] 7.3 10*3/uL 3.6 - 10.7 10*3/uL [facility] CBC WITH AUTO DIFFERENTIALon 07-02-2024 Basophils (Bld) [#/Vol] 0.0 10*3/uL Normal 0.0-0.2 [facility] Comment on above: Performed By: #### L [id number] ####Electromedical Equipment Technician: RUTH ANN BRAGG ([phone])[facility] (SBAB)[address] [place] [address] Basophils/100 WBC (Bld) 0.4 % Normal 0.0-2.0 [facility] Comment on above: Performed By: #### L [id number] ####Electromedical Equipment Technician: RUTH ANN BRAGG ([phone])[facility] (SBHLAB)[address] [place] [address] Eosinophils (Bld) [#/Vol] 0.5 10*3/uL Normal 0.0-0.5 [facility] Comment on above: Performed By: #### L [id number] ####Electromedical Equipment Technician: RUTH ANN BRAGG ([id number])[facility] ([facility])[address] [place] [address] Eosinophils/100 WBC (Bld) 6.3 % High 0.0-6.0 [facility] Comment on above: Performed By: #### L [id number] ####Electromedical Equipment Technician: RUTH ANN BRAGG ([phone])[facility] (SBHLAB)[address] Erythrocyte distribution width (RBC) [Ratio] 14.6 % Normal 11.5-15.0 [facility] Comment on above: Performed By: #### L [id number] ####Electromedical Equipment Technician: RUTH ANN BRAGG ([phone])[facility] (SBHLAB)[address] Hematocrit (Bld) [Volume fraction] 24.2 % Low 35.0-47.0 [facility] Comment on above: Performed By: #### L [id number] ####Electromedical Equipment Technician: RUTH ANN BRAGG ([phone])[facility]ITAL[facility] (SBHLAB)[address] Hemoglobin (Bld) [Mass/Vol] 7.6 g/dL Low 11.7-16.0 [facility] Comment on above: Performed By: #### L [id number] ####Electromedical Equipment Technician: RUTH ANN BRAGG ([id number])[facility]ITALRyan [facility] ([facility] IMMATURE GRANS % 0.5 % Normal 0.0-2.0 [facility] Comment on above: Performed By: #### L [id number] ####Electromedical Equipment Technician: RUTH ANN BRAGG ([id number])[facility]OSPITALRyan [facility] ([facility])[address] IMMATURE GRANS ABSOLUTE 0.0 10*3/uL Normal <0.1 [facility] Comment on above: Performed By: #### L [id number] ####Electromedical Equipment Technician: RUTH ANN BRAGG ([phone])[facility]ITAL[facility] (HLAB)[address] IPF 4 Normal [facility] Comment on above: Performed By: #### L [id number] ####Electromedical Equipment Technician: RUTH ANN BRAGG ([id number])[facility]ITAL[facility] (SBHLAB)[address] [place] [address] [place] Lymphocytes (Bld) [#/Vol] 1.2 10*3/uL Normal 1.0-4.3 [facility] Comment on above: Performed By: #### L [id number] ####Electromedical Equipment Technician: RUTH ANN BRAGG ([id number])[facility]ITAL[facility] (SBHLAB)[address] [place] [address] [place] Lymphocytes/100 WBC (Bld) 16.7 % Normal 15.0-45.0 [facility] Comment on above: Performed By: #### L [id number] ####Electromedical Equipment Technician: RUTH ANN BRAGG ([phone])[facility] [place] (SBHLAB)[address] MCH (RBC) [Entitic mass] 31.5 pg Normal 26.0-34.0 [facility] Comment on above: Performed By: #### L [id number] ####Electromedical Equipment Technician: RUTH ANN HERRONSHELTON ([phone])[facility] [place] (SBHLAB)[address] MCHC 31.4 % Normal 30.5-36.0 [facility] Comment on above: Performed By: #### L [id number] ####Electromedical Equipment Technician: RUTH ANN HERRONSHELTON ([phone])[facility] [place] (SBHLAB)[address] MCV (RBC) [Entitic vol] 100.4 fL High 77.0-99.0 [facility] Comment on above: Performed By: #### L [id number] ####Electromedical Equipment Technician: RUTH ANN BRAGG ([phone])[facility] [place] (SB[facility])[address] Monocytes (Bld) [#/Vol] 1.3 10*3/uL High 0.0-0.9 [facility] Comment on above: Performed By: #### L [id number] ####Electromedical Equipment Technician: RUTH ANN BRAGG ([id number])[facility] [place] (SBHLAB)[address] Monocytes/100 WBC (Bld) 17.3 % High 5.0-13.0 [facility] Comment on above: Performed By: #### L [id number] ####Electromedical Equipment Technician: RUTH ANN BRAGG ([phone])[facility] [place] (SB[facility])[address] NEUTROPHILS ABSOLUTE 4.3 10*3/uL Normal 1.8-7.5 [facility] Comment on above: Performed By: #### L [id number] ####Electromedical Equipment Technician: RUTH ANN BRAGG ([id number])[facility] [place] (SBHLAB)[address] Neutrophils/100 WBC (Bld) 58.8 % Normal 38.0-82.0 [facility] Comment on above: Performed By: #### L [id number] ####Electromedical Equipment Technician: RUTH ANN BRAGG ([id number])[facility] [place] (SBHLAB)[address] NRBC 0.0 /100 WBCs Normal 0.0-2.0 [facility] Comment on above: Performed By: #### L [id number] ####Electromedical Equipment Technician: RUTH ANN BRAGG ([id number])[facility] [place] (SB[facility])[address] Platelet mean volume (Bld) [Entitic vol] 11.3 fL Normal 9.0-12.7 [facility] Comment on above: Performed By: #### L [id number] ####Electromedical Equipment Technician: RUTH ANN BRAGG ([id number])[facility] [place] (SBHLAB)155 [place] [address] [place] Platelets (Bld) [#/Vol] 84 10*3/uL Low 140-440 [facility] Comment on above: Performed By: #### L [id number] ####Electromedical Equipment Technician: RUTH ANN BRAGG ([phone])[facility] [place] (SBHLAB)[address] [place] [address] [place] RBC (Bld) [#/Vol] 2.41 10*6/uL Low 3.80-5.20 [facility] Comment on above: Performed By: #### L [id number] ####Electromedical Equipment Technician: RUTH ANN BRAGG ([phone])[facility] [place] (SB[facility]AB)[address] [place] [address] [place] WBC (Bld) [#/Vol] 7.3 10*3/uL Normal 3.6-10.7 [facility] Comment on above: Performed By: #### L [id number] ####Electromedical Equipment Technician: RUTH ANN BRAGG ([phone])[facility] [place] (SBHLAB)[address] COMPREHENSIVE METABOLIC PANE Smith 07-02-2024 Albumin [Mass/Vol] 2.4 g/dL Low 3.5-5.0 [facility] Comment on above: Performed By: #### L AB17, [id number], PZM686 ####Electromedical Equipment Technician: RUTH ANN BRAGG ([phone])[facility] [place] (SBHLAB)[address] ALP [Catalytic activity/Vol] 89 U/L Normal 38-126 [facility] Comment on above: Performed By: #### L AB17, PCR594, PPR918 ####Electromedical Equipment Technician: RUTH ANN BRAGG ([phone])[facility] [place] (SBHLAB)[address] ALT [Catalytic activity/Vol] 29 U/L Normal 0-34 [facility] Comment on above: Performed By: #### L AB17, IOS732, BNG403 ####Electromedical Equipment Technician: RUTH ANN BRAGG ([phone])[facility] [place] (SBHLAB)[address] Anion gap [Moles/Vol] 0 mmol/L Low 3-13 [facility] Comment on above: Performed By: #### L AB17, TWC434, VQJ910 ####Electromedical Equipment Technician: RUTH ANN BRAGG ([phone])[facility] [place] (SB[facility]AB)[address] [place] [address] [place] AST [Catalytic activity/Vol] 50 U/L High 15-46 [facility] Comment on above: Performed By: #### L AB17, IPS943, DNS201 ####Electromedical Equipment Technician: RUTH ANN BRAGG ([phone])[facility] [place] (SBHLAB)[address] Bilirubin [Mass/Vol] 0.8 mg/dL Normal 0.2-1.3 [facility] Comment on above: Performed By: #### L AB17, IHP945, BFS312 ####Electromedical Equipment Technician: RUTH ANN BRAGG ([phone])[facility] [place] (SBHLAB)[address] Calcium [Mass/Vol] 8.0 mg/dL Low 8.4-10.4 [facility] Comment on above: Performed By: #### L AB17, QER806, RKS544 ####Electromedical Equipment Technician: RUTH ANN BRAGG ([phone])[facility] (SBAB)[address] Chloride [Moles/Vol] 110 mmol/L High 98-107 [facility] Comment on above: Performed By: #### L AB17, AWO923, WSV630 ####Electromedical Equipment Technician: RUTH ANN BRAGG ([phone])[facility] [place] (SBHLAB)[address] CO2 [Moles/Vol] 25 mmol/L Normal 22-30 [facility] Comment on above: Performed By: #### L AB17, ZAY774, KWD884 ####Electromedical Equipment Technician: RUTH ANN BRAGG ([phone])[facility] Creatinine [Mass/Vol] 1.11 mg/dL High 0.52-1.04 [facility] Comment on above: Performed By: #### L AB17, FZW294, HLA696 ####Electromedical Equipment Technician: RUTH ANN BRAGG ([phone])[facility] (SBAB)[address] GLOMERULAR FILTRATION RATE ML/MIN/1.73 SQ M.PREDICTED 51.0 mL/min/1.73m*2 Low >60.0 [facility] Comment on above: Result Comment: Calc ulation based on the Chronic Kidney Disease Epidemiology Collaboration (CKD-EPI) equation refit without adjustment for race Performed By: #### L AB17, GXD616, HNR240 ####Electromedical Equipment Technician: RUTH ANN BRAGG ([phone])[facility] (SBHLAB)[address] Glucose [Mass/Vol] 113 mg/dL High 70-100 [facility] Comment on above: Performed By: #### L AB17, PGP846, YAF748 ####Electromedical Equipment Technician: RUTH ANN BRAGG ([phone])[facility] (SBHLAB)[address] Potassium [Moles/Vol] 3.9 mmol/L Normal 3.5-5.1 [facility] Comment on above: Performed By: #### L AB17, XDH714, ACG934 ####Electromedical Equipment Technician: RUTH ANN BRAGG ([phone])[facility] ([facility] Protein [Mass/Vol] 5.0 g/dL Low 6.3-8.2 [facility] Comment on above: Performed By: #### L AB17, GNT276, HWI828 ####Electromedical Equipment Technician: RUTH ANN BRAGG ([phone])[facility] (HLAB)[address] Sodium [Moles/Vol] 135 mmol/L Normal 135-145 [facility] Comment on above: Performed By: #### L AB17, RCZ979, YGT367 ####Electromedical Equipment Technician: RUTH ANN BRAGG ([phone])[facility] (SBHLAB)[address] [place] [address] [place] Urea nitrogen [Mass/Vol] 29 mg/dL High 7-17 [facility] Comment on above: Performed By: #### L AB17, JLO663, GNA290 ####Electromedical Equipment Technician: RUTH ANN BRAGG ([phone])[facility] (SBHLAB)[address] Calcium.ionized [Moles/Vol]o n 11-25-2024 Calcium.ionized (Bld) [Moles/Vol] 4.3 mg/dL 4.30 - 5.20 mg/dL [facility] Interpretation and review of laboratory results Abnormal [facility] PH, IONIZED CALCIUM 7.56 High 7.31 - 7.46 [facility] Comprehensive metabolic 1998 panelon 07-02-2024 Albumin [Mass/Vol] 2.4 g/dL Low 3.5 - 5.0 g/dL [facility] ALP [Catalytic activity/Vol] 89 U/L 38 - 126 U/L [facility] ALT [Catalytic activity/Vol] 29 U/L 0 - 34 U/L [facility] Anion gap [Moles/Vol] 0 mmol/L Low 3 - 13 mmol/L [facility] AST [Catalytic activity/Vol] 50 U/L High 15 - 46 U/L [facility] Bilirubin [Mass/Vol] 0.8 mg/dL 0.2 - 1 .3 mg/dL [facility] Calcium [Mass/Vol] 8 mg/dL Low 8.4 - 10. 4 mg/dL [facility] Chloride [Moles/Vol] 110 mmol/L High 98 - 10 7 mmol/L [facility] CO2 [Moles/Vol] 25 mmol/L 22 - 30 mmol/L [facility] Creatinine [Mass/Vol] 1.11 mg/dL High 0.52 - 1.04 mg/dL [facility] GFR/1.73 sq M.predicted (S/P/Bld) [Vol rate/Area] 51 mL/min Low - PINF [facility] Glucose [Mass/Vol] 113 mg/dL High 70 - 100 mg/dL [facility] Interpretation and review of laboratory results Abnormal [facility] Potassium [Moles/Vol] 3.9 mmol/L 3.5 - 5.1 mmol/L [facility] Protein [Mass/Vol] 5 g/dL Low 6.3 - 8.2 g/dL [facility] Sodium [Moles/Vol] 135 mmol/L 135 - 145 mmol/L [facility] Urea nitrogen [Mass/Vol] 29 mg/dL High 7 - 17 mg/dL [facility] Laboratory - Chemistry and C hemistry - challengeon 07-02-2024 Glucose [Mass/Vol] 179 mg/dL High 70 - 100 mg/dL [facility] Glucose [Mass/Vol] 219 mg/dL High 70 - 100 mg/dL [facility] Glucose [Mass/Vol] 184 mg/dL High 70 - 100 mg/dL [facility] Glucose [Mass/Vol] 118 mg/dL High 70 - 100 mg/dL [facility] Ammonia (P) [Moles/Vol] 14 umol/L 9 - 30 umol/L [facility] Magnesium [Mass/Vol] 1.9 mg/dL 1.6 - 2 .3 mg/dL [facility] MAGNESIUMon 07-02-2024 Magnesium [Mass/Vol] 1.9 mg/dL Normal 1.6-2.3 [facility] Comment on above: Performed By: #### L AB17, RJV608, EUA366 ####Electromedical Equipment Technician: RUTH ANN BRAGG ([phone])[facility] ([facility])[address] [place] [address] No Panel Informationon 07-02 Interpretation and review of laboratory results Abnormal [facility] Interpretation and review of laboratory results Abnormal [facility] Interpretation and review of laboratory results Abnormal [facility] Interpretation and review of laboratory results Abnormal [facility] Interpretation and review of laboratory results Normal [facility] Interpretation and review of laboratory results Normal [facility] Nursing Noteon 07-02-2024 Nursing Note Patient was informed that her catheter needed to be removed per Doctors order. Patient currently has family visiting and is eating dinner and would like to wait until later. Patient was asked to call the nurse when she was ready for it to be removed. Normal [facility] PHOSPHORUSon 07-02-2024 Phosphate [Mass/Vol] 2.9 mg/dL Normal 2.5-4.5 [facility] Comment on above: Performed By: #### L AB17, LEP360, SAU870 ####Electromedical Equipment Technician: RUTH ANN BRAGG ([phone])[facility] ([facility])[address] [place] [address] Phosphate [Moles/Vol]on 06-09 Phosphate [Mass/Vol] 2.9 mg/dL 2.5 - 4 .5 mg/dL [facility] Progress Noteon 07-02-2024 Progress Note Normal [facility] Progress Note Normal [facility] Progress Note Normal [facility] Progress Note Normal [facility] Progress Note Normal [facility] AMMONIAon 07-01-2024 Ammonia (P) [Moles/Vol] 46 umol/L High 9-30 [facility] Comment on above: Performed By: #### L AB47 ####Electromedical Equipment Technician: RUTH ANN BRAGG ([phone])[facility] [place] (SBHLAB)[address] CALCIUM, IONIZEDon CALCIUM IONIZED 4.60 mg/dL Normal 4.30-5.20 [facility] Comment on above: Performed By: #### L AB54 ####Electromedical Equipment Technician: RUTH ANN BRAGG ([phone])[facility] [place] (SBHLAB)[address] [place] [address] PH, IONIZED CALCIUM 7.46 Normal 7.31-7.46 [facility] Comment on above: Performed By: #### L AB54 ####Electromedical Equipment Technician: RUTH ANN BRAGG ([phone])[facility] [place] (SBHLAB)[address] [place] [address] CBC W Auto Differential pane l (Bld)Ordered By: Kathya Dotson on 07-01-2024 Basophils (Bld) [#/Vol] 0 10*3/uL 0.0 - 0.2 10*3/uL [facility] Basophils/100 WBC (Bld) 0.4 % 0.0 - 2.0 % [facility] Eosinophils (Bld) [#/Vol] 0.6 10*3/uL High 0. 0 - 0.5 10*3/uL [facility] Eosinophils/100 WBC (Bld) 7.2 % High 0.0 - 6.0 % [facility] Erythrocyte distribution width (RBC) [Ratio] 14.9 % 11.5 - 15.0 % [facility] Hematocrit (Bld) [Volume fraction] 25.8 % Low 35.0 - 47.0 % [facility] Hemoglobin (Bld) [Mass/Vol] 7.9 g/dL Low 11.7 - 16.0 g/dL [facility] Immature granulocytes (Bld) [#/Vol] 0.1 10*3/uL High NINF - 0.1 10*3/uL [facility] Immature granulocytes/100 WBC (Bld) 0.8 % 0.0 - 2.0 % [facility] Interpretation and review of laboratory results Abnormal [facility] th Lymphocytes (Bld) [#/Vol] 1.4 10*3/uL 1. 0 - 4.3 10*3/uL [facility] Lymphocytes/100 WBC (Bld) 18.4 % 15 .0 - 45.0 % [facility] MCH (RBC) [Entitic mass] 31.5 pg 26. 0 - 34.0 pg [facility] MCHC (RBC) [Mass/Vol] 30.6 % 30.5 - 36.0 % [facility] MCV (RBC) [Entitic vol] 102.8 fL High 77.0 - 99.0 fL [facility] Monocytes (Bld) [#/Vol] 1.2 10*3/uL High 0.0 - 0.9 10*3/uL [facility] Monocytes/100 WBC (Bld) 15 % High 5.0 - 13.0 % [facility] Neutrophils (Bld) [#/Vol] 4.5 10*3/uL 1. 8 - 7.5 10*3/uL [facility] Neutrophils/100 WBC (Bld) 58.2 % 38 .0 - 82.0 % [facility] Nucleated RBC/100 WBC (Bld) [Ratio] 0 % [facility] Platelet mean volume (Bld) [Entitic vol] 11.4 fL 9.0 - 12.7 fL [facility] Platelets (Bld) [#/Vol] 86 10*3/uL Low 140 - 440 10*3/uL [facility] RBC (Bld) [#/Vol] 2.51 10*6/uL Low 3.80 - 5.2 0 10*6/uL [facility] WBC (Bld) [#/Vol] 7.7 10*3/uL 3.6 - 10.7 10*3/uL [facility] CBC WITH AUTO DIFFERENTIALon 07-01-2024 Basophils (Bld) [#/Vol] 0.0 10*3/uL Normal 0.0-0.2 [facility] Comment on above: Performed By: #### L [id number] ####Electromedical Equipment Technician: RUTH ANN HERRONSHELTON ([phone])[facility] [place] (SBHLAB)[address] Basophils/100 WBC (Bld) 0.4 % Normal 0.0-2.0 [facility] Comment on above: Performed By: #### L [id number] ####Electromedical Equipment Technician: RUTH ANN BRAGG ([phone])[facility] [place] (SBHLAB)[address] Eosinophils (Bld) [#/Vol] 0.6 10*3/uL High 0.0-0.5 [facility] Comment on above: Performed By: #### L [id number] ####Electromedical Equipment Technician: RUTH ANN HERRONSHELTON ([phone])[facility] [place] (SBHLAB)[address] Eosinophils/100 WBC (Bld) 7.2 % High 0.0-6.0 [facility] Comment on above: Performed By: #### L [id number] ####Electromedical Equipment Technician: RUTH ANN HERRONSHELTON ([phone])[facility] [place] (SBHLAB)[address] Erythrocyte distribution width (RBC) [Ratio] 14.9 % Normal 11.5-15.0 [facility] Comment on above: Performed By: #### L [id number] ####Electromedical Equipment Technician: RUTH ANN BRAGG ([id number])[facility] [place] (SBHLAB)[address] Hematocrit (Bld) [Volume fraction] 25.8 % Low 35.0-47.0 [facility] Comment on above: Performed By: #### L [id number] ####Electromedical Equipment Technician: RUTH ANN BRAGG ([phone])[facility] [place] (SB[facility])[address] Hemoglobin (Bld) [Mass/Vol] 7.9 g/dL Low 11.7-16.0 [facility] Comment on above: Performed By: #### L [id number] ####Electromedical Equipment Technician: RUTH ANN BRAGG ([phone])[facility] [place] (SB[facility]AB)[address] IMMATURE GRANS % 0.8 % Normal 0.0-2.0 [facility] Comment on above: Performed By: #### L [id number] ####Electromedical Equipment Technician: RUTH ANN BRAGG ([phone])[facility] (SBHLAB)[address] IMMATURE GRANS ABSOLUTE 0.1 10*3/uL High <0.1 [facility] Comment on above: Performed By: #### L [id number] ####Electromedical Equipment Technician: RUTH ANN BRAGG ([phone])[facility] (SBHLAB)[address] Lymphocytes (Bld) [#/Vol] 1.4 10*3/uL Normal 1.0-4.3 [facility] Comment on above: Performed By: #### L [id number] ####Electromedical Equipment Technician: RUTH ANN BRAGG ([phone])[facility] (SBHLAB)[address] Lymphocytes/100 WBC (Bld) 18.4 % Normal 15.0-45.0 [facility] Comment on above: Performed By: #### L [id number] ####Electromedical Equipment Technician: RUTH ANN BRAGG ([phone])[facility] [place] (SB[facility])[address] MCH (RBC) [Entitic mass] 31.5 pg Normal 26.0-34.0 [facility] Comment on above: Performed By: #### L [id number] ####Electromedical Equipment Technician: RUTH ANN BRAGG ([phone])[facility] (SBHLAB)[address] MCHC 30.6 % Normal 30.5-36.0 [facility] Comment on above: Performed By: #### L [id number] ####Electromedical Equipment Technician: RUTH ANN OBREGONDavidSHELTON ([phone])[facility] [place] (SBHLAB)[address] MCV (RBC) [Entitic vol] 102.8 fL High 77.0-99.0 [facility] Comment on above: Performed By: #### L [id number] ####Electromedical Equipment Technician: RUTH ANN YEMI ([id number])[facility] [place] (SBHLAB)[address] Monocytes (Bld) [#/Vol] 1.2 10*3/uL High 0.0-0.9 [facility] Comment on above: Performed By: #### L [id number] ####Electromedical Equipment Technician: RUTH ANN OBREGONWILTON ([phone])[facility] [place] (SBHLAB)[address] Monocytes/100 WBC (Bld) 15.0 % High 5.0-13.0 [facility] Comment on above: Performed By: #### L [id number] ####Electromedical Equipment Technician: RUTH ANN HERRONSHELTON ([phone])[facility] [place] (SBHLAB)[address] NEUTROPHILS ABSOLUTE 4.5 10*3/uL Normal 1.8-7.5 [facility] Comment on above: Performed By: #### L [id number] ####Electromedical Equipment Technician: RUTH ANN OBREGONWILTON ([phone])[facility] [place] (SB[facility])[address] Neutrophils/100 WBC (Bld) 58.2 % Normal 38.0-82.0 [facility] Comment on above: Performed By: #### L [id number] ####Electromedical Equipment Technician: RUTH ANN HERRONSHELTON ([phone])[facility] [place] (SB[facility])[address] NRBC 0.0 /100 WBCs Normal 0.0-2.0 [facility] Comment on above: Performed By: #### L [id number] ####Electromedical Equipment Technician: RUTH ANN BRAGG ([id number])[facility]ERYMARGARETN (SBHLAB)[address] Platelet mean volume (Bld) [Entitic vol] 11.4 fL Normal 9.0-12.7 [facility] Comment on above: Performed By: #### L [id number] ####Electromedical Equipment Technician: RUTH ANN BRAGG ([phone])[facility] (SBHLAB)[address] Platelets (Bld) [#/Vol] 86 10*3/uL Low 140-440 [facility] Comment on above: Performed By: #### L [id number] ####Electromedical Equipment Technician: RUTH ANN BRAGG ([phone])[facility] [place] (SBHLAB)[address] RBC (Bld) [#/Vol] 2.51 10*6/uL Low 3.80-5.20 [facility] Comment on above: Performed By: #### L [id number] ####Electromedical Equipment Technician: RUTH ANN BRAGG ([phone])[facility] [place] (SBHLAB)[address] [place] [address] WBC (Bld) [#/Vol] 7.7 10*3/uL Normal 3.6-10.7 [facility] Comment on above: Performed By: #### L [id number] ####Electromedical Equipment Technician: RUTH ANN BRAGG ([phone])[facility] [place] (SB[facility])[address] COMPREHENSIVE METABOLIC PANE Smith 07-01-2024 Albumin [Mass/Vol] 2.3 g/dL Low 3.5-5.0 [facility] Comment on above: Performed By: #### L AB17, PHX013, PAU266 ####Electromedical Equipment Technician: RUTH ANN BRAGG ([phone])[facility] [place] (SBHLAB)[address] ALP [Catalytic activity/Vol] 93 U/L Normal 38-126 [facility] Comment on above: Performed By: #### L AB17, XNW299, AIO057 ####Electromedical Equipment Technician: RUTH ANN BRAGG ([id number])[facility] [place] (SBHLAB)[address] ALT [Catalytic activity/Vol] 28 U/L Normal 0-34 [facility] Comment on above: Performed By: #### L AB17, WHI108, OAD088 ####Electromedical Equipment Technician: RUTH ANN BRAGG ([id number])[facility] [place] (SBHLAB)[address] Anion gap [Moles/Vol] 2 mmol/L Low 3-13 [facility] Comment on above: Performed By: #### L AB17, EUT232, TOU033 ####Electromedical Equipment Technician: RUTH ANN BRAGG ([phone])[facility] [place] (SBHLAB)[address] AST [Catalytic activity/Vol] 51 U/L High 15-46 [facility] Comment on above: Performed By: #### L AB17, WOQ914, RST548 ####Electromedical Equipment Technician: RUTH ANN BRAGG ([phone])[facility] [place] (SBHLAB)[address] Bilirubin [Mass/Vol] 0.7 mg/dL Normal 0.2-1.3 [facility] Comment on above: Performed By: #### L AB17, NTT245, XFR608 ####Electromedical Equipment Technician: RUTH ANN BRAGG ([phone])[facility] [place] (SBHLAB)[address] [place] [address] [place] Calcium [Mass/Vol] 8.1 mg/dL Low 8.4-10.4 [facility] Comment on above: Performed By: #### L AB17, TSH626, ISP935 ####Electromedical Equipment Technician: RUTH ANN BRAGG ([phone])[facility] [place] (SBHLAB)[address] [place] [address] [place] Chloride [Moles/Vol] 113 mmol/L High 98-107 [facility] Comment on above: Performed By: #### L AB17, LGG551, AHD865 ####Electromedical Equipment Technician: RUTH ANN BRAGG ([phone])[facility] [place] (SBHLAB)[address] [place] [address] [place] CO2 [Moles/Vol] 25 mmol/L Normal 22-30 [facility] Comment on above: Performed By: #### L AB17, LKU377, GYY890 ####Electromedical Equipment Technician: RUTH ANN BRAGG ([phone])[facility] (SBHLAB)[address] Creatinine [Mass/Vol] 1.18 mg/dL High 0.52-1.04 [facility] Comment on above: Performed By: #### Jayy AB17, XXC500, GUJ479 ####Electromedical Equipment Technician: RUTH ANN BRAGG ([phone])[facility]ITAL[facility] (SBHLAB)[address] [place] [address] [place] GLOMERULAR FILTRATION RATE ML/MIN/1.73 SQ M.PREDICTED 47.4 mL/min/1.73m*2 Low >60.0 [facility] Comment on above: Result Comment: Calc ulation based on the Chronic Kidney Disease Epidemiology Collaboration (CKD-EPI) equation refit without adjustment for race Performed By: #### L AB17, FVH473, JXT168 ####Electromedical Equipment Technician: RUTH ANN BRAGG ([phone])[facility] [place] (SBHLAB)[address] [place] [address] [place] Glucose [Mass/Vol] 143 mg/dL High 70-100 [facility] Comment on above: Performed By: #### L AB17, RXV478, POQ144 ####Electromedical Equipment Technician: RUTH ANN BRAGG ([phone])[facility] (SBHLAB)[address] [place] [address] [place] Potassium [Moles/Vol] 3.7 mmol/L Normal 3.5-5.1 [facility] Comment on above: Performed By: #### L AB17, DTJ095, JVH792 ####Electromedical Equipment Technician: RUTH ANN BRAGG ([id number])[facility] (SBHLAB)[address] Protein [Mass/Vol] 5.0 g/dL Low 6.3-8.2 [facility] Comment on above: Performed By: #### L AB17, KKH173, MNP187 ####Electromedical Equipment Technician: RUTH ANN BRAGG ([phone])[facility] (SBHLAB)[address] Sodium [Moles/Vol] 140 mmol/L Normal 135-145 [facility] Comment on above: Performed By: #### L AB17, HSF971, VUF926 ####Electromedical Equipment Technician: RUTH ANN BRAGG ([phone])[facility] (SBHLAB)[address] Urea nitrogen [Mass/Vol] 37 mg/dL High 7-17 [facility] Comment on above: Performed By: #### L AB17, APP812, LVY911 ####Electromedical Equipment Technician: RUTH ANN BRAGG ([phone])[facility] (SBHLAB)[address] Calcium.ionized [Moles/Vol]o n 07-01-2024 Calcium.ionized (Bld) [Moles/Vol] 4.6 mg/dL 4.30 - 5.20 mg/dL [facility] Interpretation and review of laboratory results Normal [facility] PH, IONIZED CALCIUM 7.46 7.31 - 7.46 [facility] Comprehensive metabolic 1998 panelon 07-01-2024 Albumin [Mass/Vol] 2.3 g/dL Low 3.5 - 5.0 g/dL [facility] ALP [Catalytic activity/Vol] 93 U/L 38 - 126 U/L [facility] ALT [Catalytic activity/Vol] 28 U/L 0 - 34 U/L [facility] Anion gap [Moles/Vol] 2 mmol/L Low 3 - 13 mmol/L [facility] AST [Catalytic activity/Vol] 51 U/L High 15 - 46 U/L [facility] Bilirubin [Mass/Vol] 0.7 mg/dL 0.2 - 1 .3 mg/dL [facility] Calcium [Mass/Vol] 8.1 mg/dL Low 8.4 - 10. 4 mg/dL [facility] Chloride [Moles/Vol] 113 mmol/L High 98 - 10 7 mmol/L [facility] CO2 [Moles/Vol] 25 mmol/L 22 - 30 mmol/L [facility] Creatinine [Mass/Vol] 1.18 mg/dL High 0.52 - 1.04 mg/dL [facility] GFR/1.73 sq M.predicted (S/P/Bld) [Vol rate/Area] 47.4 mL/min Low - PINF [facility] Glucose [Mass/Vol] 143 mg/dL High 70 - 100 mg/dL [facility] Interpretation and review of laboratory results Abnormal [facility] Potassium [Moles/Vol] 3.7 mmol/L 3.5 - 5.1 mmol/L [facility] Protein [Mass/Vol] 5 g/dL Low 6.3 - 8.2 g/dL [facility] Sodium [Moles/Vol] 140 mmol/L 135 - 145 mmol/L [facility] Urea nitrogen [Mass/Vol] 37 mg/dL High 7 - 17 mg/dL [facility] [employer] AND STREPTOCOCCUS URINE ANTIGENon 07-01-2024 LEGIONELLA AND STREPTOCOCCUS URINE ANTIGEN Normal [facility] Comment on above: Performed By: #### L [id number] ####Electromedical Equipment Technician: CHERYL STOREY ([phone])[facility] ([address] Laboratory - Chemistry and C hemistry - challengeon 07-01-2024 Glucose [Mass/Vol] 159 mg/dL High 70 - 100 mg/dL [facility] Glucose [Mass/Vol] 194 mg/dL High 70 - 100 mg/dL [facility] Glucose [Mass/Vol] 172 mg/dL High 70 - 100 mg/dL [facility] Glucose [Mass/Vol] 133 mg/dL High 70 - 100 mg/dL [facility] Magnesium [Mass/Vol] 2 mg/dL 1.6 - 2 .3 mg/dL [facility] Ammonia (P) [Moles/Vol] 46 umol/L High 9 - 30 umol/L [facility] MAGNESIUMon 07-01-2024 Magnesium [Mass/Vol] 2.0 mg/dL Normal 1.6-2.3 [facility] Comment on above: Performed By: #### L AB17, [id number], [id number] ####Electromedical Equipment Technician: RUTH ANN BRAGG ([phone])[facility] ([facility] No Panel Informationon 07-01 Interpretation and review of laboratory results Abnormal [facility] Interpretation and review of laboratory results Abnormal [facility] Interpretation and review of laboratory results Abnormal [facility] Interpretation and review of laboratory results Abnormal [facility] Interpretation and review of laboratory results Normal [facility] Interpretation and review of laboratory results Abnormal [facility] No Panel InformationOrdered By: Jeancarlos Johnson on 07-01-2024 Interpretation and review of laboratory results Normal [facility] Legionella pneumophila Ag Not detected No t Detected [facility] Streptococcus pneumoniae Ag Not detected Not Detected [facility] PHOSPHORUSon 07-01-2024 Phosphate [Mass/Vol] 2.7 mg/dL Normal 2.5-4.5 [facility] Comment on above: Performed By: #### L AB17, [id number], [id number] ####Electromedical Equipment Technician: RUTH ANN BRAGG ([phone])[facility] ([facility] [place] [address] Phosphate [Moles/Vol]on 06-09 Phosphate [Mass/Vol] 2.7 mg/dL 2.5 - 4 .5 mg/dL [facility] Progress Noteon 07-01-2024 Progress Note Normal [facility] RESPIRATORY PATHOGENS PANEL BY PCRon 07-01-2024 RESPIRATORY PATHOGENS PANEL BY PCR Normal [facility] Comment on above: Performed By: #### L [id number] ####Electromedical Equipment Technician: CHERYL STOREY ([phone])[facility] ([facility])[address] [place] [address] Respiratory pathogens DNA an d RNA panel HUGO+non-probe (Nph)on 07-01-2024 Adenovirus Not detected Not Detected [facility] B. pertussis DNA HUGO+probe Ql (Unsp spec) Not detected Not Detected [facility] Bordetella parapertussis Not detected Not Detected [facility] Chlamydia pneumoniae Not detected Not Detected [facility] Coronavirus 229E Not detected Not Detected [facility] Coronavirus HKU1 Not detected Not Detected [facility] Coronavirus NL63 Not detected Not Detected [facility] Coronavirus OC43 Not detected Not Detected [facility] FLUAV RNA HUGO+non-probe Ql (Nph) Not detected Not Detected [facility] FLUBV RNA HUGO+non-probe Ql (Nph) Not detected Not Detected [facility] Human Metapneumovirus Not detected Not Detected [facility] Human Rhinovirus/Enterovirus Not detected Not Detected [facility] Interpretation and review of laboratory results Normal [facility] Mycoplasma pneumoniae Not detected Not Detected [facility] Parainfluenza 1 Not detected Not Detected [facility] Parainfluenza 2 Not detected Not Detected [facility] Parainfluenza 3 Not detected Not Detected [facility] Parainfluenza 4 Not detected Not Detected [facility] Respiratory Syncytial Virus Not detected Not Detected [facility] SARS-CoV-2 (COVID-19) RNA HUGO+non-probe Ql (Nph) Not detected Not Detected [facility] 30on 06-30-2024 30 Normal [facility] AMMONIAon 06-30-2024 Ammonia (P) [Mass/Vol] ug/dL Low 9-30 [facility] Comment on above: Performed By: #### L [id number] ####Electromedical Equipment Technician: RUTH ANN BRAGG ([phone])[facility] ([facility])[address] [place] [address] [place] CALCIUM, IONIZEDon 4 CALCIUM IONIZED 4.80 mg/dL Normal 4.30-5.20 [facility] Comment on above: Performed By: #### L AB54 ####Electromedical Equipment Technician: RUTH ANN BRAGG ([phone])[facility] [place] ([facility])[address] PH, IONIZED CALCIUM 7.46 Normal 7.31-7.46 [facility] Comment on above: Performed By: #### L AB54 ####Electromedical Equipment Technician: RUTH ANN BRAGG ([phone])[facility] (SB[facility])[address] [place], [place] [id number] [facility] CBC W Auto Differential pane l (Bld)on 06-30-2024 Basophils (Bld) [#/Vol] 0 10*3/uL 0.0 - 0.2 10*3/uL [facility] Basophils/100 WBC (Bld) 0.3 % 0.0 - 2.0 % [facility] Eosinophils (Bld) [#/Vol] 0.4 10*3/uL 0. 0 - 0.5 10*3/uL [facility] Eosinophils/100 WBC (Bld) 6.1 % High 0.0 - 6.0 % [facility] Erythrocyte distribution width (RBC) [Ratio] 15 % 11.5 - 15.0 % [facility] Hematocrit (Bld) [Volume fraction] 24.7 % Low 35.0 - 47.0 % [facility] Hemoglobin (Bld) [Mass/Vol] 7.5 g/dL Low 11.7 - 16.0 g/dL [facility] Immature granulocytes (Bld) [#/Vol] 0.1 10*3/uL High NINF - 0.1 10*3/uL [facility] Immature granulocytes/100 WBC (Bld) 0.9 % 0.0 - 2.0 % [facility] Interpretation and review of laboratory results Abnormal [facility] IPF 4 [facility] Lymphocytes (Bld) [#/Vol] 1.1 10*3/uL 1. 0 - 4.3 10*3/uL [facility] Lymphocytes/100 WBC (Bld) 15.4 % 15 .0 - 45.0 % [facility] MCH (RBC) [Entitic mass] 31 pg 26. 0 - 34.0 pg [facility] MCHC (RBC) [Mass/Vol] 30.4 % Low 30.5 - 36.0 % [facility] MCV (RBC) [Entitic vol] 102.1 fL High 77.0 - 99.0 fL [facility] Monocytes (Bld) [#/Vol] 1.1 10*3/uL High 0.0 - 0.9 10*3/uL [facility] Monocytes/100 WBC (Bld) 15.4 % High 5.0 - 13.0 % [facility] Neutrophils (Bld) [#/Vol] 4.3 10*3/uL 1. 8 - 7.5 10*3/uL [facility] Neutrophils/100 WBC (Bld) 61.9 % 38 .0 - 82.0 % [facility] Nucleated RBC/100 WBC (Bld) [Ratio] 0 % [facility] Platelet mean volume (Bld) [Entitic vol] 11.8 fL 9.0 - 12.7 fL [facility] Platelets (Bld) [#/Vol] 74 10*3/uL Low 140 - 440 10*3/uL [facility] RBC (Bld) [#/Vol] 2.42 10*6/uL Low 3.80 - 5.2 0 10*6/uL [facility] WBC (Bld) [#/Vol] 6.9 10*3/uL 3.6 - 10.7 10*3/uL [facility] CBC WITH AUTO DIFFERENTIALon 06-30-2024 Basophils (Bld) [#/Vol] 0.0 10*3/uL Normal 0.0-0.2 [facility] Comment on above: Performed By: #### L [id number] ####Electromedical Equipment Technician: RUTH ANN BRAGG ([phone])[facility] ([facility])[address] [place] [address] Basophils/100 WBC (Bld) 0.3 % Normal 0.0-2.0 [facility] Comment on above: Performed By: #### L [id number] ####Electromedical Equipment Technician: RUTH ANN BRAGG ([phone])[facility] [place] ([facility])[address] Eosinophils (Bld) [#/Vol] 0.4 10*3/uL Normal 0.0-0.5 [facility] Comment on above: Performed By: #### L [id number] ####Electromedical Equipment Technician: RUTH ANN BRAGG ([phone])[facility] [place] ([facility])[address] Eosinophils/100 WBC (Bld) 6.1 % High 0.0-6.0 [facility] Comment on above: Performed By: #### L [id number] ####Electromedical Equipment Technician: RUTH ANN BRAGG ([phone])[facility] [place] ([facility])[address] Erythrocyte distribution width (RBC) [Ratio] 15.0 % Normal 11.5-15.0 [facility] Comment on above: Performed By: #### L [id number] ####Electromedical Equipment Technician: RUTH ANN BRAGG ([phone])[facility] [place] ([facility])[address] Hematocrit (Bld) [Volume fraction] 24.7 % Low 35.0-47.0 [facility] Comment on above: Performed By: #### L [id number] ####Electromedical Equipment Technician: RUTH ANN BRAGG ([phone])[facility] [place] ([facility])[address] Hemoglobin (Bld) [Mass/Vol] 7.5 g/dL Low 11.7-16.0 [facility] Comment on above: Performed By: #### L [id number] ####Electromedical Equipment Technician: RUTH ANN BRAGG ([phone])[facility] [place] ([facility])[address] IMMATURE GRANS % 0.9 % Normal 0.0-2.0 [facility] Comment on above: Performed By: #### L [id number] ####Electromedical Equipment Technician: RUTH ANN BRAGG ([phone])[facility] [place] ([facility])[address] IMMATURE GRANS ABSOLUTE 0.1 10*3/uL High <0.1 [facility] Comment on above: Performed By: #### L [id number] ####Electromedical Equipment Technician: RUTH ANN BRAGG ([phone])[facility] [place] ([facility])[address] IPF 4 Normal [facility] Comment on above: Performed By: #### L [id number] ####Electromedical Equipment Technician: RUTH ANN BRAGG ([phone])[facility] (SB[facility])[address] Lymphocytes (Bld) [#/Vol] 1.1 10*3/uL Normal 1.0-4.3 [facility] Comment on above: Performed By: #### L [id number] ####Electromedical Equipment Technician: RUTH ANN BRAGG ([phone])[facility] ([facility])[address] Lymphocytes/100 WBC (Bld) 15.4 % Normal 15.0-45.0 [facility] Comment on above: Performed By: #### L [id number] ####Electromedical Equipment Technician: RUTH ANN BRAGG ([phone])[facility] ([facility])[address] MCH (RBC) [Entitic mass] 31.0 pg Normal 26.0-34.0 [facility] Comment on above: Performed By: #### L [id number] ####Electromedical Equipment Technician: RUTH ANN BRAGG ([id number])[facility] ([facility])[address] MCHC 30.4 % Low 30.5-36.0 [facility] Comment on above: Performed By: #### L [id number] ####Electromedical Equipment Technician: RUTH ANN BRAGG ([phone])[facility] (SB[facility])[address] MCV (RBC) [Entitic vol] 102.1 fL High 77.0-99.0 [facility] Comment on above: Performed By: #### L [id number] ####Electromedical Equipment Technician: RUTH ANN BRAGG ([phone])[facility] (SB[facility])[address] [place] [address] [place] Monocytes (Bld) [#/Vol] 1.1 10*3/uL High 0.0-0.9 [facility] Comment on above: Performed By: #### L [id number] ####Electromedical Equipment Technician: RUTH ANN BRAGG ([phone])[facility] [place] (SBHL[facility])[address] Monocytes/100 WBC (Bld) 15.4 % High 5.0-13.0 [facility] Comment on above: Performed By: #### L [id number] ####Electromedical Equipment Technician: RUTH ANN BRAGG ([phone])[facility] [place] ([facility])[address] NEUTROPHILS ABSOLUTE 4.3 10*3/uL Normal 1.8-7.5 [facility] Comment on above: Performed By: #### L [id number] ####Electromedical Equipment Technician: RUTH ANN BRAGG ([phone])[facility] [place] ([facility])[address] Neutrophils/100 WBC (Bld) 61.9 % Normal 38.0-82.0 [facility] Comment on above: Performed By: #### L [id number] ####Electromedical Equipment Technician: RUTH ANN BRAGG ([phone])[facility] [place] ([facility])[address] NRBC 0.0 /100 WBCs Normal 0.0-2.0 [facility] Comment on above: Performed By: #### L [id number] ####Electromedical Equipment Technician: RUTH ANN BRAGG ([phone])[facility] [place] ([facility])[address] Platelet mean volume (Bld) [Entitic vol] 11.8 fL Normal 9.0-12.7 [facility] Comment on above: Performed By: #### L [id number] ####Electromedical Equipment Technician: RUTH ANN BRAGG ([phone])[facility] [place] ([facility])[address] [place] [address] [place] Platelets (Bld) [#/Vol] 74 10*3/uL Low 140-440 [facility] Comment on above: Performed By: #### L [id number] ####Electromedical Equipment Technician: RUTH ANN BRAGG ([phone])[facility] (SB[facility])[address] RBC (Bld) [#/Vol] 2.42 10*6/uL Low 3.80-5.20 [facility] Comment on above: Performed By: #### L [id number] ####Electromedical Equipment Technician: RUTH ANN BRAGG ([phone])[facility] [place] ([facility])[address] WBC (Bld) [#/Vol] 6.9 10*3/uL Normal 3.6-10.7 [facility] Comment on above: Performed By: #### L [id number] ####Electromedical Equipment Technician: RUTH ANN BRAGG ([phone])[facility] [place] ([facility])[address] COMPREHENSIVE METABOLIC PANE Smith 06-30-2024 Albumin [Mass/Vol] 2.3 g/dL Low 3.5-5.0 [facility] Comment on above: Performed By: #### Jayy AB17, ISQ558, ABO285 ####Electromedical Equipment Technician: RUTH ANN BRAGG ([phone])[facility] [place] ([facility])[address] ALP [Catalytic activity/Vol] 81 U/L Normal 38-126 [facility] Comment on above: Performed By: #### L AB17, XOP035, GCM752 ####Electromedical Equipment Technician: RUTH ANN BRAGG ([phone])[facility] [place] ([facility])[address] ALT [Catalytic activity/Vol] 24 U/L Normal 0-34 [facility] Comment on above: Performed By: #### L AB17, AUW828, QHU688 ####Electromedical Equipment Technician: RUTH ANN BRAGG ([phone])[facility] [place] ([facility])[address] Anion gap [Moles/Vol] 3 mmol/L Normal 3-13 [facility] Comment on above: Performed By: #### L AB17, PPN468, JBF397 ####Electromedical Equipment Technician: RUTH ANN BRAGG ([phone])[facility] [place] ([facility])[address] AST [Catalytic activity/Vol] 43 U/L Normal 15-46 [facility] Comment on above: Performed By: #### L AB17, [id number], CRV951 ####Electromedical Equipment Technician: RUTH ANN BRAGG ([id number])[facility] ([facility])[address] Bilirubin [Mass/Vol] 0.8 mg/dL Normal 0.2-1.3 [facility] Comment on above: Performed By: #### L AB17, [id number], DJZ938 ####Electromedical Equipment Technician: RUTH ANN BRAGG ([id number])[facility] ([facility])[address] Calcium [Mass/Vol] 8.4 mg/dL Normal 8.4-10.4 [facility] Comment on above: Performed By: #### L AB17, NGH023, FET452 ####Electromedical Equipment Technician: RUTH ANN BRAGG ([id number])[facility] [place] ([facility])[address] Chloride [Moles/Vol] 117 mmol/L High 98-107 [facility] Comment on above: Performed By: #### L AB17, GZX599, ZRA270 ####Electromedical Equipment Technician: RUTH ANN BRAGG ([phone])[facility] [place] ([facility])[address] [place] [address] [place] CO2 [Moles/Vol] 23 mmol/L Normal 22-30 [facility] Comment on above: Performed By: #### L AB17, EZE170, YID072 ####Electromedical Equipment Technician: RUTH ANN BRAGG ([phone])[facility] [place] ([facility])[address] Creatinine [Mass/Vol] 1.15 mg/dL High 0.52-1.04 [facility] Comment on above: Performed By: #### L AB17, VYW710, TVI687 ####Electromedical Equipment Technician: RUTH ANN BRAGG ([phone])[facility] (SB[facility])[address] GLOMERULAR FILTRATION RATE ML/MIN/1.73 SQ M.PREDICTED 48.9 mL/min/1.73m*2 Low >60.0 [facility] Comment on above: Result Comment: Calc ulation based on the Chronic Kidney Disease Epidemiology Collaboration (CKD-EPI) equation refit without adjustment for race Performed By: #### L AB17, QXE858, JEU310 ####Electromedical Equipment Technician: RUTH ANN BRAGG ([id number])[facility] ([facility] Glucose [Mass/Vol] 131 mg/dL High 70-100 [facility] Comment on above: Performed By: #### L AB17, IYO205, YEP824 ####Electromedical Equipment Technician: RUTH ANN BRAGG ([phone])[facility] ([facility] Potassium [Moles/Vol] 3.5 mmol/L Normal 3.5-5.1 [facility] Comment on above: Performed By: #### L AB17, MMU764, NJI654 ####Electromedical Equipment Technician: RUTH ANN BRAGG ([phone])[facility] ([facility] [place] [address] [place] Protein [Mass/Vol] 5.0 g/dL Low 6.3-8.2 [facility] Comment on above: Performed By: #### L AB17, UFY715, [id number] ####Electromedical Equipment Technician: RUTH ANN BRAGG ([phone])[facility] ([facility])[address] Sodium [Moles/Vol] 142 mmol/L Normal 135-145 [facility] Comment on above: Performed By: #### L AB17, [id number], NOL247 ####Electromedical Equipment Technician: RUTH ANN BRAGG ([phone])[facility] (SBHLAB)[address] [place] [address] Urea nitrogen [Mass/Vol] 48 mg/dL High 02-21 [facility] Comment on above: Performed By: #### L AB17, [id number], [id number] ####Electromedical Equipment Technician: RUTH ANN BRAGG ([phone])[facility] (SB[facility])[address] Calcium.ionized [Moles/Vol]o n 06-30-2024 Calcium.ionized (Bld) [Moles/Vol] 4.8 mg/dL 4.30 - 5.20 mg/dL [facility] Interpretation and review of laboratory results Normal [facility] PH, IONIZED CALCIUM 7.46 7.31 - 7.46 [facility] Comprehensive metabolic 1998 panelon 06-30-2024 Albumin [Mass/Vol] 2.3 g/dL Low 3.5 - 5.0 g/dL [facility] ALP [Catalytic activity/Vol] 81 U/L 38 - 126 U/L [facility] ALT [Catalytic activity/Vol] 24 U/L 0 - 34 U/L [facility] Anion gap [Moles/Vol] 3 mmol/L 3 - 13 mmol/L [facility] AST [Catalytic activity/Vol] 43 U/L 15 - 46 U/L [facility] Bilirubin [Mass/Vol] 0.8 mg/dL 0.2 - 1 .3 mg/dL [facility] Calcium [Mass/Vol] 8.4 mg/dL 8.4 - 10. 4 mg/dL [facility] Chloride [Moles/Vol] 117 mmol/L High 98 - 10 7 mmol/L [facility] CO2 [Moles/Vol] 23 mmol/L 22 - 30 mmol/L [facility] Creatinine [Mass/Vol] 1.15 mg/dL High 0.52 - 1.04 mg/dL [facility] GFR/1.73 sq M.predicted (S/P/Bld) [Vol rate/Area] 48.9 mL/min Low - PINF [facility] Glucose [Mass/Vol] 131 mg/dL High 70 - 100 mg/dL [facility] Interpretation and review of laboratory results Abnormal [facility] Potassium [Moles/Vol] 3.5 mmol/L 3.5 - 5.1 mmol/L [facility] Protein [Mass/Vol] 5 g/dL Low 6.3 - 8.2 g/dL [facility] Sodium [Moles/Vol] 142 mmol/L 135 - 145 mmol/L [facility] Urea nitrogen [Mass/Vol] 48 mg/dL High 7 - 17 mg/dL [facility] Laboratory - Chemistry and C hemistry - challengeon 06-30-2024 Glucose [Mass/Vol] 166 mg/dL High 70 - 100 mg/dL [facility] Glucose [Mass/Vol] 210 mg/dL High 70 - 100 mg/dL [facility] Glucose [Mass/Vol] 214 mg/dL High 70 - 100 mg/dL [facility] Glucose [Mass/Vol] 141 mg/dL High 70 - 100 mg/dL [facility] Magnesium [Mass/Vol] 2.1 mg/dL 1.6 - 2 .3 mg/dL [facility] Ammonia (P) [Moles/Vol] umol/L Low 9 - 30 umol/L [facility] MAGNESIUMon 06-30-2024 Magnesium [Mass/Vol] 2.1 mg/dL Normal 1.6-2.3 [facility] Comment on above: Performed By: #### L AB17, [id number], [id number] ####Electromedical Equipment Technician: RUTH ANN BRAGG ([phone])[facility] ([facility])[address] [place] [address] No Panel Informationon 06-30 Interpretation and review of laboratory results Abnormal [facility] Interpretation and review of laboratory results Abnormal [facility] Interpretation and review of laboratory results Abnormal [facility] Interpretation and review of laboratory results Abnormal [facility] Interpretation and review of laboratory results Normal [facility] Interpretation and review of laboratory results Abnormal [facility] PHOSPHORUSon 06-30-2024 Phosphate [Mass/Vol] 3.1 mg/dL Normal 2.5-4.5 [facility] Comment on above: Performed By: #### L AB17, [id number], [id number] ####Electromedical Equipment Technician: RUTH ANN BRAGG ([phone])[facility] ([facility])[address] [place] [address] Phosphate [Moles/Vol]on 06-09 Phosphate [Mass/Vol] 3.1 mg/dL 2.5 - 4 .5 mg/dL [facility] Progress Noteon 06-30-2024 Progress Note Normal [facility] 30on 06-29-2024 30 Normal [facility] [id number] 06-29-2024 [id number] Normal [facility] AMMONIAon 06-29-2024 Ammonia (P) [Mass/Vol] ug/dL Low 9-30 [facility] Comment on above: Performed By: #### L AB47 ####Electromedical Equipment Technician: RUTH ANN BRAGG ([phone])[facility] ([facility])[address] [place] [address] CALCIUM, IONIZEDon CALCIUM IONIZED 4.80 mg/dL Normal 4.30-5.20 [facility] Comment on above: Performed By: #### L AB54 ####Electromedical Equipment Technician: RUTH ANN BRAGG ([phone])[facility] ([facility])[address] [place] [address] PH, IONIZED CALCIUM 7.49 High 7.31-7.46 [facility] Comment on above: Performed By: #### L AB54 ####Electromedical Equipment Technician: RUTH ANN BRAGG ([phone])[facility] ([facility] [place] [address] CBC W Auto Differential pane l (Bld)on 06-29-2024 Erythrocyte distribution width (RBC) [Ratio] 15.3 % High 11.5 - 15.0 % [facility] Hematocrit (Bld) [Volume fraction] 30 % Low 35.0 - 47.0 % [facility] Hemoglobin (Bld) [Mass/Vol] 9.3 g/dL Low 11.7 - 16.0 g/dL [facility] MCH (RBC) [Entitic mass] 31.4 pg 26. 0 - 34.0 pg [facility] MCHC (RBC) [Mass/Vol] 31 % 30.5 - 36.0 % [facility] MCV (RBC) [Entitic vol] 101.4 fL High 77.0 - 99.0 fL [facility] Platelet mean volume (Bld) [Entitic vol] 11.1 fL 9.0 - 12.7 fL [facility] Platelets (Bld) [#/Vol] 95 10*3/uL Low 140 - 440 10*3/uL [facility] RBC (Bld) [#/Vol] 2.96 10*6/uL Low 3.80 - 5.2 0 10*6/uL [facility] WBC (Bld) [#/Vol] 9.4 10*3/uL 3.6 - 10.7 10*3/uL [facility] CBC WITH AUTO DIFFERENTIALon 06-29-2024 Erythrocyte distribution width (RBC) [Ratio] 15.3 % High 11.5-15.0 [facility] Comment on above: Performed By: #### L [id number], [id number] ####Electromedical Equipment Technician: RUTH ANN BRAGG ([phone])[facility] ([facility])[address] [place] [address] Hematocrit (Bld) [Volume fraction] 30.0 % Low 35.0-47.0 [facility] Comment on above: Performed By: #### L [id number], [id number] ####Electromedical Equipment Technician: RUTH ANN BRAGG ([phone])[facility] ([facility] Hemoglobin (Bld) [Mass/Vol] 9.3 g/dL Low 11.7-16.0 [facility] Comment on above: Performed By: #### L [id number], [id number] ####Electromedical Equipment Technician: RUTH ANN BRAGG ([phone])[facility] (SBAB)[address] MCH (RBC) [Entitic mass] 31.4 pg Normal 26.0-34.0 [facility] Comment on above: Performed By: #### L [id number], [id number] ####Electromedical Equipment Technician: RUTH ANN BRAGG ([phone])[facility] (SBHLAB)[address] MCHC 31.0 % Normal 30.5-36.0 [facility] Comment on above: Performed By: #### L [id number], [id number] ####Electromedical Equipment Technician: RUTH ANN BRAGG ([phone])[facility] (SBHLAB)[address] MCV (RBC) [Entitic vol] 101.4 fL High 77.0-99.0 S [facility] Comment on above: Performed By: #### L [id number], [id number] ####Electromedical Equipment Technician: RUTH ANN BRAGG ([phone])[facility] (SBHLAB)[address] Platelet mean volume (Bld) [Entitic vol] 11.1 fL Normal 9.0-12.7 [facility] Comment on above: Performed By: #### L [id number], [id number] ####Electromedical Equipment Technician: RUTH ANN BRAGG ([phone])[facility] (SBHLAB)[address] Platelets (Bld) [#/Vol] 95 10*3/uL Low 140-440 S [facility] Comment on above: Performed By: #### L [id number], [id number] ####Electromedical Equipment Technician: RUTH ANN BRAGG ([phone])[facility] [place] (SBHLAB)[address] RBC (Bld) [#/Vol] 2.96 10*6/uL Low 3.80-5.20 [facility] Comment on above: Performed By: #### L [id number], [id number] ####Electromedical Equipment Technician: RUTH ANN BRAGG ([phone])[facility] (SBHLAB)[address] WBC (Bld) [#/Vol] 9.4 10*3/uL Normal 3.6-10.7 [facility] Comment on above: Performed By: #### L [id number], [id number] ####Electromedical Equipment Technician: RUTH ANN BRAGG ([phone])[facility]ITAL[facility] S[facility]ERSOmi (SBHLAB)[address] COMPREHENSIVE METABOLIC PANE Smith 06-29-2024 Albumin [Mass/Vol] 2.9 g/dL Low 3.5-5.0 [facility] Comment on above: Performed By: #### L AB17, [id number], [id number] ####Electromedical Equipment Technician: RUTH ANN BRAGG ([phone])[facility] [place] (SBHLAB)[address] ALP [Catalytic activity/Vol] 123 U/L Normal 38-126 [facility] Comment on above: Performed By: #### L AB17, [id number], [id number] ####Electromedical Equipment Technician: RUTH ANN BRAGG ([phone])[facility] [place] (SBHLAB)[address] ALT [Catalytic activity/Vol] 26 U/L Normal 0-34 [facility] Comment on above: Performed By: #### L AB17, [id number], [id number] ####Electromedical Equipment Technician: RUTH ANN BRAGG ([phone])[facility] [place] (SBHLAB)[address] Anion gap [Moles/Vol] 4 mmol/L Normal 3-13 [facility] Comment on above: Performed By: #### L AB17, [id number], [id number] ####Electromedical Equipment Technician: RUTH ANN BRAGG ([phone])[facility]ITAL[facility] [place]ERYMARGARETN (SBHLAB)[address] AST [Catalytic activity/Vol] 53 U/L High 15-46 [facility] Comment on above: Performed By: #### L AB17, [id number], [id number] ####Electromedical Equipment Technician: RUTH ANN BRAGG ([phone])[facility]ITAL[facility] (SBHLAB)[address] [place] [address] [place] Bilirubin [Mass/Vol] 0.9 mg/dL Normal 0.2-1.3 [facility] Comment on above: Performed By: #### L AB17, [id number], [id number] ####Electromedical Equipment Technician: RUTH ANN BRAGG ([phone])[facility]OSPITALyRan [facility] (SBHLAB)[address] Calcium [Mass/Vol] 9.0 mg/dL Normal 8.4-10.4 [facility] Comment on above: Performed By: #### L AB17, [id number], [id number] ####Electromedical Equipment Technician: RUTH ANN BRAGG ([phone])[facility]ITAL[facility] (SBHLAB)[address] Chloride [Moles/Vol] 120 mmol/L High 98-107 [facility] Comment on above: Performed By: #### L AB17, [id number], [id number] ####Electromedical Equipment Technician: RUTH ANN BRAGG ([phone])[facility]ITAL[facility] [place] (SBHLAB)[address] [place] [address] [place] CO2 [Moles/Vol] 21 mmol/L Low 22-30 [facility] Comment on above: Performed By: #### L AB17, [id number], GTM164 ####Electromedical Equipment Technician: RUTH ANN BRAGG ([phone])[facility]ITAL[facility] (SBHLAB)[address] [place] [address] [place] Creatinine [Mass/Vol] 1.25 mg/dL High 0.52-1.04 [facility] Comment on above: Performed By: #### L AB17, SLU617, [id number] ####Electromedical Equipment Technician: RUTH ANN BRAGG ([phone])[facility]ITAL[facility] (SBHLAB)[address] [place] [address] [place] GLOMERULAR FILTRATION RATE ML/MIN/1.73 SQ M.PREDICTED 44.2 mL/min/1.73m*2 Low >60.0 [facility] Comment on above: Result Comment: Calc ulation based on the Chronic Kidney Disease Epidemiology Collaboration (CKD-EPI) equation refit without adjustment for race Performed By: #### L AB17, [id number], [id number] ####Electromedical Equipment Technician: RUTH ANN BRAGG ([phone])[facility]ITAL[facility]ERS[facility]mi (SBHLAB)[address] Glucose [Mass/Vol] 190 mg/dL High 70-100 [facility] Comment on above: Performed By: #### L AB17, [id number], XKS259 ####Electromedical Equipment Technician: RUTH ANN BRAGG ([phone])[facility]ITAL[facility] (SBHLAB)[address] Potassium [Moles/Vol] 3.7 mmol/L Normal 3.5-5.1 [facility] Comment on above: Performed By: #### Jayy AB17, [id number], [id number] ####Electromedical Equipment Technician: RUTH ANN RBAGG ([phone])[facility] (SBHLAB)[address] Protein [Mass/Vol] 5.8 g/dL Low 6.3-8.2 [facility] Comment on above: Performed By: #### L AB17, [id number], [id number] ####Electromedical Equipment Technician: RUTH ANN BRAGG ([phone])[facility]ITAL[facility] (SBHLAB)[address] [place] [address] [place] Sodium [Moles/Vol] 145 mmol/L Normal 135-145 [facility] Comment on above: Performed By: #### L AB17, [id number], [id number] ####Electromedical Equipment Technician: RUTH ANN BRAGG ([phone])[facility] (SBHLAB)[address] [place] [address] [place] Urea nitrogen [Mass/Vol] 51 mg/dL High 7-17 [facility] Comment on above: Performed By: #### L AB17, [id number], [id number] ####Electromedical Equipment Technician: RUTH ANN BRAGG ([phone])[facility] (SBHLAB)[address] [place] [address] [place] Calcium.ionized [Moles/Vol]O rdered By: Carola Hernandez on 06-29-2024 Calcium.ionized (Bld) [Moles/Vol] 4.8 mg/dL 4.30 - 5.20 mg/dL [facility] Interpretation and review of laboratory results Abnormal [facility] PH, IONIZED CALCIUM 7.49 High 7.31 - 7.46 [facility] Comprehensive metabolic 1998 panelon 06-29-2024 Albumin [Mass/Vol] 2.9 g/dL Low 3.5 - 5.0 g/dL [facility] ALP [Catalytic activity/Vol] 123 U/L 38 - 126 U/L [facility] ALT [Catalytic activity/Vol] 26 U/L 0 - 34 U/L [facility] Anion gap [Moles/Vol] 4 mmol/L 3 - 13 mmol/L [facility] AST [Catalytic activity/Vol] 53 U/L High 15 - 46 U/L [facility] Bilirubin [Mass/Vol] 0.9 mg/dL 0.2 - 1 .3 mg/dL [facility] Calcium [Mass/Vol] 9 mg/dL 8.4 - 10. 4 mg/dL [facility] Chloride [Moles/Vol] 120 mmol/L High 98 - 10 7 mmol/L [facility] CO2 [Moles/Vol] 21 mmol/L Low 22 - 30 mmol/L [facility] Creatinine [Mass/Vol] 1.25 mg/dL High 0.52 - 1.04 mg/dL [facility] GFR/1.73 sq M.predicted (S/P/Bld) [Vol rate/Area] 44.2 mL/min Low - PINF [facility] Glucose [Mass/Vol] 190 mg/dL High 70 - 100 mg/dL [facility] Potassium [Moles/Vol] 3.7 mmol/L 3.5 - 5.1 mmol/L [facility] Protein [Mass/Vol] 5.8 g/dL Low 6.3 - 8.2 g/dL [facility] Sodium [Moles/Vol] 145 mmol/L 135 - 145 mmol/L [facility] Urea nitrogen [Mass/Vol] 51 mg/dL High 7 - 17 mg/dL [facility] Laboratory - Chemistry and C hemistry - challengeon 06-29-2024 Glucose [Mass/Vol] 162 mg/dL High 70 - 100 mg/dL [facility] Health Glucose [Mass/Vol] 195 mg/dL High 70 - 100 mg/dL [facility] Health Glucose [Mass/Vol] 190 mg/dL High 70 - 100 mg/dL [facility] Health Glucose [Mass/Vol] 195 mg/dL High 70 - 100 mg/dL [facility] Magnesium [Mass/Vol] 2.2 mg/dL 1.6 - 2 .3 mg/dL [facility] Ammonia (P) [Moles/Vol] umol/L Low 9 - 30 umol/L [facility] Laboratory - Hematology and Cell countson 06-29-2024 Anisocytosis Ql (Bld) Slight Abnormal (none) [facility] Basophils (Bld) [#/Vol] 0.1 10*3/uL 0.0 - 0.2 10*3/uL [facility] Health Basophils/100 WBC (Bld) 1 % 0 - 2 % [facility] [place] cells LM Ql (Bld) Slight Abnormal (none) [facility] Eosinophils (Bld) [#/Vol] 0.1 10*3/uL 0. 0 - 0.5 10*3/uL [facility] Health Eosinophils/100 WBC (Bld) 1 % 0 - 6 % [facility] Lymphocytes (Bld) [#/Vol] 0.8 10*3/uL Low 1. 0 - 4.3 10*3/uL [facility] Health Lymphocytes/100 WBC (Bld) 8 % Low 15 - 45 % [facility] Monocytes (Bld) [#/Vol] 1 10*3/uL High 0.0 - 0.9 10*3/uL [facility] Health Monocytes/100 WBC (Bld) 11 % 5 - 13 % [facility] Neutrophils (Bld) [#/Vol] 7.3 10*3/uL 1. 8 - 7.5 10*3/uL [facility] Ovalocytes LM Ql (Bld) Slight Abnormal (none) [facility] Poikilocytosis LM Ql (Bld) Slight Abnormal (none) [facility] RBC morphology finding Nom (Bld) abnormal [facility] Schistocytes LM Ql (Bld) Slight Abnormal (none) [facility] Segmented neutrophils/100 WBC (Bld) 78 % 38 - 82 % [facility] MAGNESIUMon 06-29-2024 Magnesium [Mass/Vol] 2.2 mg/dL Normal 1.6-2.3 [facility] Comment on above: Performed By: #### L AB17, [id number], [id number] ####Electromedical Equipment Technician: RUTH ANN BRAGG ([phone])[facility] [place] (SBHLAB)[address] MANUAL DIFFERENTIAL (CELLAVI KRISTIAN)on 06-29-2024 ACANTHOCYTES (PRESENCE) IN BLOOD BY LIGHT MICROSCOPY Slight Abnormal (none) [facility] Comment on above: Performed By: #### L [id number], [id number] ####Electromedical Equipment Technician: RUTH ANN BRAGG ([phone])[facility] [place] (SBHLAB)[address] ANISOCYTOSIS PRESENCE IN BLOOD BY LIGHT MICROSCOPY Slight Abnormal (none) [facility] Comment on above: Performed By: #### L [id number], [id number] ####Electromedical Equipment Technician: RUTH ANN BRAGG ([phone])[facility] [place] (SBHLAB)[address] BAND NEUTROPHILS TOTAL PER COUNTED LEUKOCYTES BY MANUAL COUNT Normal [facility] Comment on above: Performed By: #### L [id number], [id number] ####Electromedical Equipment Technician: RUTH ANN BRAGG ([phone])[facility]ITAL[facility] (SBHLAB)[address] BASOPHILS (10*3/UL) IN BLOOD-CELLAVISION 0.1 10*3/uL Normal 0.0-0.2 [facility] Comment on above: Performed By: #### L [id number], [id number] ####Electromedical Equipment Technician: RUTH ANN BRAGG ([phone])[facility] [place] (SBHLAB)[address] BASOPHILS TOTAL PER COUNTED LEUKOCYTES BY MANUAL COUNT 1 Normal [facility] Comment on above: Performed By: #### L [id number], [id number] ####Electromedical Equipment Technician: RUTH ANN BARGG ([phone])[facility]ITALA [facility] (SBHLAB)[address] [place] [address] [place] BASOPHILS/100 LEUKOCYTES IN BLOOD-CELLAVISION 1 % Normal 0-2 [facility] Comment on above: Performed By: #### L [id number], [id number] ####Electromedical Equipment Technician: RUTH ANN BRAGG ([phone])[facility] [place] (SBHLAB)[address] [place] [address] [place] BLASTS TOTAL PER COUNTED LEUKOCYTES BY MANUAL COUNT Normal [facility] Comment on above: Performed By: #### L [id number], [id number] ####Electromedical Equipment Technician: RUTH ANN BRAGG ([phone])[facility] [place] (SBHLAB)[address] [place] [address] [place] EOSINOPHILS (10*3/UL) IN BLOOD-CELLAVISION 0.1 10*3/uL Normal 0.0-0.5 [facility] Comment on above: Performed By: #### L [id number], [id number] ####Electromedical Equipment Technician: RUTH ANN BRAGG ([phone])[facility] [place] (SBHLAB)155 [place] [address] [place] EOSINOPHILS TOTAL PER COUNTED LEUKOCYTES BY MANUAL COUNT 1 Normal 0-1 [facility] Comment on above: Performed By: #### L [id number], [id number] ####Electromedical Equipment Technician: RUTH ANN BRAGG ([phone])[facility] [place] (HLAB)155 [place] [address] [place] EOSINOPHILS/100 LEUKOCYTES IN BLOOD-CELLAVISION 1 % Normal 0-6 [facility] Comment on above: Performed By: #### L [id number], [id number] ####Electromedical Equipment Technician: RUTH ANN BRAGG ([phone])[facility] [place] (SBHLAB)[address] [place] [address] [place] LYMPHOCYTES (10*3/UL) IN BLOOD-CELLAVISION 0.8 10*3/uL Low 1.0-4.3 [facility] Comment on above: Performed By: #### L [id number], [id number] ####Electromedical Equipment Technician: RUTH ANN BRAGG ([phone])[facility] [place] (SBHLAB)[address] [place] [address] [place] LYMPHOCYTES TOTAL PER COUNTED LEUKOCYTES BY MANUAL COUNT 8 Normal [facility] Comment on above: Performed By: #### L [id number], [id number] ####Electromedical Equipment Technician: RUTH ANN PRITCHARDCER ([phone])[facility] [place] (SBHLAB)[address] [place] [address] [place] LYMPHOCYTES/100 LEUKOCYTES IN BLOOD-CELLAVISION 8 % Low 15-45 [facility] Comment on above: Performed By: #### L [id number], [id number] ####Electromedical Equipment Technician: RUTH ANN PRITCHARDCER ([phone])[facility] [place] (SBHLAB)[address] [place] [address] [place] METAMYELOCYTES TOTAL PER COUNTED LEUKOCYTES BY MANUAL COUNT Normal [facility] Comment on above: Performed By: #### L [id number], [id number] ####Electromedical Equipment Technician: RUTH ANN BRAGG ([phone])[facility] [place] (SBHLAB)[address] [place] [address] [place] MONOCYTES (10*3/UL) IN BLOOD-CELLAVISION 1.0 10*3/uL High 0.0-0.9 [facility] Comment on above: Performed By: #### L [id number], [id number] ####Electromedical Equipment Technician: RUTH ANN BRAGG ([phone])[facility] [place] (SBHLAB)[address] [place] [address] [place] MONOCYTES TOTAL PER COUNTED LEUKOCYTES BY MANUAL COUNT 11 Normal [facility] Comment on above: Performed By: #### L [id number], [id number] ####Electromedical Equipment Technician: RUTH ANN PRITCHARDCER ([phone])[facility] [place] (SBHLAB)[address] [place] [address] [place] MONOCYTES/100 LEUKOCYTES IN BLOOD-TOMMIE 11 % Normal 5-13 [facility] Comment on above: Performed By: #### L [id number], [id number] ####Electromedical Equipment Technician: RUTH ANN BRAGG ([phone])[facility] [place] (SBHLAB)[address] [place] [address] [place] MYELOCYTES COUNTED BY MANUAL COUNT Normal [facility] Comment on above: Performed By: #### L [id number], [id number] ####Electromedical Equipment Technician: RUTH ANN HERRONSHELTON ([phone])[facility] [place] (SBHLAB)[address] [place] [address] [place] NEUTROPHILS TOTAL PER COUNTED LEUKOCYTES BY MANUAL COUNT 80 Normal [facility] Comment on above: Performed By: #### L [id number], [id number] ####Electromedical Equipment Technician: RUTH ANN BRAGG ([phone])[facility] [place] (SBHLAB)[address] [place] [address] [place] OVALOCYTES PRESENCE IN BLOOD BY LIGHT MICROSCOPY Slight Abnormal (none) [facility] Comment on above: Performed By: #### L [id number], [id number] ####Electromedical Equipment Technician: RUTH ANN BRAGG ([phone])[facility] [place] (SBHLAB)[address] [place] [address] [place] POIKILOCYTOSIS (PRESENCE) IN BLOOD BY LIGHT MICROSCOPY Slight Abnormal (none) [facility] Comment on above: Performed By: #### L [id number], [id number] ####Electromedical Equipment Technician: RUTH ANN BRAGG ([phone])[facility] [place] (SBHLAB)[address] [place] [address] [place] PROMYELOCYTES TOTAL PER COUNTED LEUKOCYTES BY MANUAL COUNT Normal [facility] Comment on above: Performed By: #### L [id number], [id number] ####Electromedical Equipment Technician: RUTH ANN BRAGG ([phone])[facility] [place] (SBHLAB)[address] [place] [address] [place] RBC MORPHOLOGY IN BLOOD abnormal Normal [facility] Comment on above: Performed By: #### L [id number], [id number] ####Electromedical Equipment Technician: RUTH ANN BRAGG ([phone])[facility] [place] (SBHLAB)[address] [place] [address] [place] SCHISTOCYTES (PRESENCE) IN BLOOD BY LIGHT MICROSCOPY Slight Abnormal (none) [facility] Comment on above: Performed By: #### L [id number], [id number] ####Electromedical Equipment Technician: RUTH ANN BRAGG ([phone])[facility] [place] (SBHLAB)[address] SEGMENTED NEUTROPHILS (10*3/UL) IN BLOOD-CELLAVISION 7.3 10*3/uL Normal 1.8-7.5 [facility] Comment on above: Performed By: #### L [id number], [id number] ####Electromedical Equipment Technician: RUTH ANN BRAGG ([phone])[facility] (SBHLAB)[address] SEGMENTED NEUTROPHILS/100 LEUKOCYTES-CE 78 % Normal 38-82 [facility] Comment on above: Performed By: #### L [id number], [id number] ####Electromedical Equipment Technician: RUTH ANN BRAGG ([phone])[facility] (SBHLAB)[address] UNCLASSIFIED CELLS TOTAL PER COUNTED LEUKOCYTES BY MANUAL COUNT Normal [facility] Comment on above: Performed By: #### L [id number], [id number] ####Electromedical Equipment Technician: RUTH ANN BRAGG ([phone])[facility] [place] (SBHLAB)[address] VARIANT LYMPHOCYTES TOTAL PER COUNTED LEUKOCYTES BY MANUAL COUNT Normal [facility] Comment on above: Performed By: #### L [id number], [id number] ####Electromedical Equipment Technician: RUTH ANN BRAGG ([phone])[facility] (SBHLAB)[address] [place] [address] [place] Magnesium [Mass/Vol]on 06-29 Interpretation and review of laboratory results Normal [facility] No Panel Informationon 06-29 Interpretation and review of laboratory results Abnormal [facility] Interpretation and review of laboratory results Abnormal [facility] Interpretation and review of laboratory results Abnormal [facility] Interpretation and review of laboratory results Abnormal [facility] Basophils Manual 1 [facility] alth Eosinophils Manual 1 0 - 1 [facility] Interpretation and review of laboratory results Abnormal [facility] Lymphocytes Manual 8 [facility] Monocytes Manual 11 [facility] alth Neutrophils Manual 80 [facility] Interpretation and review of laboratory results Abnormal [facility] Interpretation and review of laboratory results Abnormal [facility] PHOSPHORUSon 06-29-2024 Phosphate [Mass/Vol] 2.2 mg/dL Low 2.5-4.5 [facility] Comment on above: Performed By: #### L AB17, [id number], [id number] ####Electromedical Equipment Technician: RUTH ANN BRAGG ([phone])[facility] ([facility])[address] [place] [address] Phosphate [Moles/Vol]on 06-09 Phosphate [Mass/Vol] 2.2 mg/dL Low 2.5 - 4 .5 mg/dL [facility] Progress Noteon 06-29-[address] [facility] Note [facility] Progress Note [facility] Progress Note [facility] Note [facility] Progress Note [facility] 30on 06-28-2024 30 Normal [facility] 30 Normal [facility] [id number] 06-28-2024 [id number] Normal [facility] AMMONIAon 06-28-2024 Ammonia (P) [Moles/Vol] 27 umol/L Normal 9-30 S [facility] Comment on above: Performed By: #### L [id number] ####Electromedical Equipment Technician: RUTH ANN BRAGG ([phone])[facility] ([facility])[address] [place] [address] Bacteria identified Cx Nom ( U)Ordered By: Christie Avila on 06-28-2024 Interpretation and review of laboratory results Abnormal [facility] CALCIUM, IONIZEDon CALCIUM IONIZED 4.70 mg/dL Normal 4.30-5.20 [facility] Comment on above: Performed By: #### L [id number] ####Electromedical Equipment Technician: RUTH ANN BRAGG ([phone])[facility] (SBHLAB)[address] PH, IONIZED CALCIUM 7.50 High 7.31-7.46 [facility] Comment on above: Performed By: #### L [id number] ####Electromedical Equipment Technician: RUTH ANN BRAGG ([phone])[facility] (SBHLAB)[address] CBC W Auto Differential pane l (Bld)Ordered By: Jr Chase on 06-28-2024 Erythrocyte distribution width (RBC) [Ratio] 15.6 % High 11.5 - 15.0 % [facility] Hematocrit (Bld) [Volume fraction] 28 % Low 35.0 - 47.0 % [facility] Hemoglobin (Bld) [Mass/Vol] 8.8 g/dL Low 11.7 - 16.0 g/dL [facility] Interpretation and review of laboratory results Abnormal [facility] MCH (RBC) [Entitic mass] 31.7 pg 26. 0 - 34.0 pg [facility] MCHC (RBC) [Mass/Vol] 31.4 % 30.5 - 36.0 % [facility] MCV (RBC) [Entitic vol] 100.7 fL High 77.0 - 99.0 fL [facility] Platelet mean volume (Bld) [Entitic vol] 10.8 fL 9.0 - 12.7 fL [facility] Platelets (Bld) [#/Vol] 105 10*3/uL Low 140 - 440 10*3/uL [facility] RBC (Bld) [#/Vol] 2.78 10*6/uL Low 3.80 - 5.2 0 10*6/uL [facility] WBC (Bld) [#/Vol] 11.1 10*3/uL High 3.6 - 10.7 10*3/uL [facility] CBC WITH AUTO DIFFERENTIALon 06-28-2024 Erythrocyte distribution width (RBC) [Ratio] 15.6 % High 11.5-15.0 [facility] Comment on above: Performed By: #### L [id number], [id number] ####Electromedical Equipment Technician: RUTH ANN BRAGG ([phone])[facility] (SBHLAB)[address] Hematocrit (Bld) [Volume fraction] 28.0 % Low 35.0-47.0 [facility] Comment on above: Performed By: #### L [id number], [id number] ####Electromedical Equipment Technician: RUTH ANN BRAGG ([phone])[facility]ITAL[facility] (SBHLAB)[address] Hemoglobin (Bld) [Mass/Vol] 8.8 g/dL Low 11.7-16.0 [facility] Comment on above: Performed By: #### L [id number], [id number] ####Electromedical Equipment Technician: RUTH ANN BRAGG ([id number])[facility] ([facility])[address] [place] [address] MCH (RBC) [Entitic mass] 31.7 pg Normal 26.0-34.0 [facility] Comment on above: Performed By: #### L [id number], [id number] ####Electromedical Equipment Technician: RUTH ANN BRAGG ([phone])[facility]ITAL[facility] ([facility])[address] [place] [address] MCHC 31.4 % Normal 30.5-36.0 [facility] Comment on above: Performed By: #### L [id number], [id number] ####Electromedical Equipment Technician: RUTH ANN BRAGG ([phone])[facility]ITAL[facility] (SBHLAB)[address] MCV (RBC) [Entitic vol] 100.7 fL High 77.0-99.0 S [facility] Comment on above: Performed By: #### L [id number], [id number] ####Electromedical Equipment Technician: RUTH ANN BRAGG ([phone])[facility]ITAL[facility] (SB[facility])[address] Platelet mean volume (Bld) [Entitic vol] 10.8 fL Normal 9.0-12.7 [facility] Comment on above: Performed By: #### L [id number], [id number] ####Electromedical Equipment Technician: RUTH ANN BRAGG ([phone])[facility] ([facility])[address] Platelets (Bld) [#/Vol] 105 10*3/uL Low 140-440 [facility] Comment on above: Performed By: #### L [id number], [id number] ####Electromedical Equipment Technician: RUTH ANN BRAGG ([phone])[facility] ([facility])[address] RBC (Bld) [#/Vol] 2.78 10*6/uL Low 3.80-5.20 [facility] Comment on above: Performed By: #### L [id number], [id number] ####Electromedical Equipment Technician: RUTH ANN BRAGG ([phone])[facility] (SBHLAB)[address] [place] [address] WBC (Bld) [#/Vol] 11.1 10*3/uL High 3.6-10.7 [facility] Comment on above: Performed By: #### L [id number], [id number] ####Electromedical Equipment Technician: RUTH ANN BRAGG ([phone])[facility] (SBHLAB)[address] [place] [address] COMPREHENSIVE METABOLIC PANE Smith 06-28-2024 Albumin [Mass/Vol] 3.0 g/dL Low 3.5-5.0 [facility] Comment on above: Performed By: #### L [id number], [id number], [id number] ####Electromedical Equipment Technician: RUTH ANN BRAGG ([phone])[facility] ([facility])[address] ALP [Catalytic activity/Vol] 85 U/L Normal 38-126 [facility] Comment on above: Performed By: #### L AB17, [id number], [id number] ####Electromedical Equipment Technician: RUTH ANN BRAGG ([phone])[facility] (SB[facility])[address] ALT [Catalytic activity/Vol] 24 U/L Normal 0-34 [facility] Comment on above: Performed By: #### L AB17, [id number], [id number] ####Electromedical Equipment Technician: RUTH ANN BRAGG ([phone])[facility]ITAL[facility] ([facility])[address] Anion gap [Moles/Vol] 7 mmol/L Normal 3-13 [facility] Comment on above: Performed By: #### L AB17, [id number], [id number] ####Electromedical Equipment Technician: RUTH ANN BRAGG ([phone])[facility] ([facility])[address] AST [Catalytic activity/Vol] 51 U/L High 15-46 [facility] Comment on above: Performed By: #### L AB17, [id number], [id number] ####Electromedical Equipment Technician: RUTH ANN BRAGG ([phone])[facility] (SB[facility])[address] Bilirubin [Mass/Vol] 0.9 mg/dL Normal 0.2-1.3 [facility] Comment on above: Performed By: #### L AB17, [id number], [id number] ####Electromedical Equipment Technician: RUTH ANN BRAGG ([phone])[facility] ([facility])[address] Calcium [Mass/Vol] 9.2 mg/dL Normal 8.4-10.4 [facility] Comment on above: Performed By: #### L AB17, [id number], YOS128 ####Electromedical Equipment Technician: RUTH ANN BRAGG ([phone])[facility] ([facility])[address] Chloride [Moles/Vol] 120 mmol/L High 98-107 [facility] Comment on above: Performed By: #### L AB17, [id number], YIT769 ####Electromedical Equipment Technician: RUTH ANN BRAGG ([phone])[facility]ITAL[facility] [place] (SBHLAB)[address] [place] [address] [place] CO2 [Moles/Vol] 19 mmol/L Low 22-30 [facility] Comment on above: Performed By: #### L AB17, [id number], [id number] ####Electromedical Equipment Technician: RUTH ANN BRAGG ([phone])[facility] [place] (SBHLAB)[address] Creatinine [Mass/Vol] 1.43 mg/dL High 0.52-1.04 [facility] Comment on above: Performed By: #### L AB17, [id number], [id number] ####Electromedical Equipment Technician: RUTH ANN BRAGG ([phone])[facility] (SBHLAB)[address] GLOMERULAR FILTRATION RATE ML/MIN/1.73 SQ M.PREDICTED 37.6 mL/min/1.73m*2 Low >60.0 [facility] Comment on above: Result Comment: Calc ulation based on the Chronic Kidney Disease Epidemiology Collaboration (CKD-EPI) equation refit without adjustment for race Performed By: #### L AB17, [id number], [id number] ####Electromedical Equipment Technician: RUTH ANN BRAGG ([phone])[facility] [place] (SBHLAB)[address] [place] [address] [place] Glucose [Mass/Vol] 163 mg/dL High 70-100 [facility] Comment on above: Performed By: #### L AB17, [id number], GDS873 ####Electromedical Equipment Technician: RUTH ANN BRAGG ([phone])[facility] [place] (SBHLAB)[address] [place] [address] [place] Potassium [Moles/Vol] 3.6 mmol/L Normal 3.5-5.1 [facility] Comment on above: Performed By: #### L AB17, [id number], [id number] ####Electromedical Equipment Technician: RUTH ANN BRAGG ([phone])[facility] (SB[facility])[address] [place] [address] [place] Protein [Mass/Vol] 6.0 g/dL Low 6.3-8.2 [facility] Comment on above: Performed By: #### L AB17, [id number], [id number] ####Electromedical Equipment Technician: RUTH ANN HERRONSHELTON ([phone])[facility] (SBHLAB)[address] Sodium [Moles/Vol] 146 mmol/L High 135-145 [facility] Comment on above: Performed By: #### L AB17, [id number], DBW389 ####Electromedical Equipment Technician: RUTH ANN BRAGG ([phone])[facility] (SBHLAB)[address] Urea nitrogen [Mass/Vol] 51 mg/dL High 7-17 [facility] Comment on above: Performed By: #### L AB17, [id number], [id number] ####Electromedical Equipment Technician: RUTH ANN OBREGONWILTON ([phone])[facility] (SBHLAB)[address] Calcium.ionized [Moles/Vol]o n 06-28-2024 Calcium.ionized (Bld) [Moles/Vol] 4.7 mg/dL 4.30 - 5.20 mg/dL [facility] Interpretation and review of laboratory results Abnormal [facility] PH, IONIZED CALCIUM 7.5 High 7.31 - 7.46 [facility] Comprehensive metabolic 1998 panelon 06-28-2024 Albumin [Mass/Vol] 3 g/dL Low 3.5 - 5.0 g/dL [facility] ALP [Catalytic activity/Vol] 85 U/L 38 - 126 U/L [facility] ALT [Catalytic activity/Vol] 24 U/L 0 - 34 U/L [facility] Anion gap [Moles/Vol] 7 mmol/L 3 - 13 mmol/L [facility] AST [Catalytic activity/Vol] 51 U/L High 15 - 46 U/L [facility] Bilirubin [Mass/Vol] 0.9 mg/dL 0.2 - 1 .3 mg/dL [facility] Calcium [Mass/Vol] 9.2 mg/dL 8.4 - 10. 4 mg/dL [facility] Chloride [Moles/Vol] 120 mmol/L High 98 - 10 7 mmol/L [facility] CO2 [Moles/Vol] 19 mmol/L Low 22 - 30 mmol/L [facility] Creatinine [Mass/Vol] 1.43 mg/dL High 0.52 - 1.04 mg/dL [facility] GFR/1.73 sq M.predicted (S/P/Bld) [Vol rate/Area] 37.6 mL/min Low - PINF [facility] Glucose [Mass/Vol] 163 mg/dL High 70 - 100 mg/dL [facility] Interpretation and review of laboratory results Abnormal [facility] th Potassium [Moles/Vol] 3.6 mmol/L 3.5 - 5.1 mmol/L [facility] Protein [Mass/Vol] 6 g/dL Low 6.3 - 8.2 g/dL [facility] Sodium [Moles/Vol] 146 mmol/L High 135 - 145 mmol/L [facility] Urea nitrogen [Mass/Vol] 51 mg/dL High 7 - 17 mg/dL [facility] Consulton 06-28-2024 Consult Normal [facility] HEMOGLOBIN AND HEMATOCRIT, B LOODon 06-28-2024 Hematocrit (Bld) [Volume fraction] 27.4 % Low 35.0-47.0 [facility] Comment on above: Performed By: #### L [id number] ####Electromedical Equipment Technician: RUTH ANN BRAGG ([phone])[facility] ([facility])[address] [place] [address] Hemoglobin (Bld) [Mass/Vol] 8.5 g/dL Low 11.7-16.0 [facility] Comment on above: Performed By: #### L [id number] ####Electromedical Equipment Technician: RUTH ANN BRAGG ([phone])[facility] ([facility] [place] [address] Hematocrit (Bld) [Volume fraction] 28.6 % Low 35.0-47.0 [facility] Comment on above: Performed By: #### L [id number] ####Electromedical Equipment Technician: RUTH ANN BRAGG ([phone])[facility] ([facility] [place] [address] Hemoglobin (Bld) [Mass/Vol] 9.0 g/dL Low 11.7-16.0 [facility] Comment on above: Performed By: #### L [id number] ####Electromedical Equipment Technician: RUTH ANN PRITCHARDCER ([phone])[facility] ([facility] [place] [address] Hematocrit (Bld) [Volume fraction] 28.1 % Low 35.0-47.0 [facility] Comment on above: Performed By: #### L [id number] ####Electromedical Equipment Technician: RUTH ANN PRITCHARDCER ([phone])[facility] ([facility] [place] [address] Hemoglobin (Bld) [Mass/Vol] 8.9 g/dL Low 11.7-16.0 [facility] Comment on above: Performed By: #### L [id number] ####Electromedical Equipment Technician: RUTH ANN HERRONSHELTON ([phone])[facility] ([facility])[address] [place] [address] Hemoglobin (Bld) [Mass/Vol]O rdered By: Jayashree Naranjo on 06-28-2024 Hematocrit (Bld) [Volume fraction] 27.4 % Low 35.0 - 47.0 % [facility] Interpretation and review of laboratory results Abnormal [facility] Hemoglobin (Bld) [Mass/Vol]o n 06-28-2024 Hematocrit (Bld) [Volume fraction] 28.6 % Low 35.0 - 47.0 % [facility] Interpretation and review of laboratory results Abnormal [facility] Hematocrit (Bld) [Volume fraction] 28.1 % Low 35.0 - 47.0 % [facility] Interpretation and review of laboratory results Abnormal [facility] - Chemistry and C hemistry - challengeon 06-28-2024 Glucose [Mass/Vol] 208 mg/dL High 70 - 100 mg/dL [facility] Glucose [Mass/Vol] 211 mg/dL High 70 - 100 mg/dL [facility] Glucose [Mass/Vol] 208 mg/dL High 70 - 100 mg/dL [facility] Glucose [Mass/Vol] 170 mg/dL High 70 - 100 mg/dL [facility] Magnesium [Mass/Vol] 2.1 mg/dL 1.6 - 2 .3 mg/dL [facility] Ammonia (P) [Moles/Vol] 27 umol/L 9 - 30 umol/L [facility] Laboratory - Hematology and Cell countsOrdered By: Jayashree Naranjo on 06-28-2024 Hemoglobin (Bld) [Mass/Vol] 8.5 g/dL Low 11.7 - 16.0 g/dL [facility] Laboratory - Hematology and Cell countson 06-28-2024 Hemoglobin (Bld) [Mass/Vol] 9 g/dL Low 11.7 - 16.0 g/dL [facility] Hemoglobin (Bld) [Mass/Vol] 8.9 g/dL Low 11.7 - 16.0 g/dL [facility] Eosinophils (Bld) [#/Vol] 0.1 10*3/uL 0. 0 - 0.5 10*3/uL [facility] Eosinophils/100 WBC (Bld) 1 % 0 - 6 % [facility] Lymphocytes (Bld) [#/Vol] 1.1 10*3/uL 1. 0 - 4.3 10*3/uL [facility] Lymphocytes/100 WBC (Bld) 10 % Low 15 - 45 % [facility] Monocytes (Bld) [#/Vol] 1.3 10*3/uL High 0.0 - 0.9 10*3/uL [facility] Monocytes/100 WBC (Bld) 12 % 5 - 13 % [facility] Neutrophils (Bld) [#/Vol] 8.7 10*3/uL High 1. 8 - 7.5 10*3/uL [facility] RBC morphology finding Nom (Bld) Normal [facility] Segmented neutrophils/100 WBC (Bld) 78 % 38 - 82 % [facility] Laboratory - Microbiology an d Antimicrobial susceptibilityOrdered By: Christie Avila on 06-28-2024 Bacteria identified Cx Nom (U) >100,000 CFU/mL Escherichia coli Abnormal [facility] MAGNESIUMon 06-28-2024 Magnesium [Mass/Vol] 2.1 mg/dL Normal 1.6-2.3 [facility] Comment on above: Performed By: #### L AB17, [id number], [id number] ####Electromedical Equipment Technician: RUTH ANNMELANIE BRAGG ([phone])[facility] [place] (SBHLAB)[address] [place] [address] [place] MANUAL DIFFERENTIAL (CELLAVI KRISTIAN)on 06-28-2024 BAND NEUTROPHILS TOTAL PER COUNTED LEUKOCYTES BY MANUAL COUNT Normal [facility] Comment on above: Performed By: #### L [id number], [id number] ####Electromedical Equipment Technician: RUTH ANN YEMI ([phone])[facility] [place] (SBHLAB)[address] [place] [address] [place] BASOPHILS TOTAL PER COUNTED LEUKOCYTES BY MANUAL COUNT Normal [facility] Comment on above: Performed By: #### L [id number], [id number] ####Electromedical Equipment Technician: RUTH ANNMELANIE BRGAG ([phone])[facility] [place] (SBHLAB)[address] [place] [address] [place] BLASTS TOTAL PER COUNTED LEUKOCYTES BY MANUAL COUNT Normal [facility] Comment on above: Performed By: #### L [id number], [id number] ####Electromedical Equipment Technician: RUTH ANN YEMI ([phone])[facility] [place] (SBHLAB)[address] [place] [address] [place] EOSINOPHILS (10*3/UL) IN BLOOD-CELLAVISION 0.1 10*3/uL Normal 0.0-0.5 [facility] Comment on above: Performed By: #### L [id number], [id number] ####Electromedical Equipment Technician: RUTH ANN HERRONSHELTON ([phone])[facility] [place] (SBHLAB)[address] [place] [address] [place] EOSINOPHILS TOTAL PER COUNTED LEUKOCYTES BY MANUAL COUNT 1 Normal 0-1 [facility] Comment on above: Performed By: #### L [id number], [id number] ####Electromedical Equipment Technician: RUTH ANN OBREGONWILTON ([phone])[facility] [place] (SBHLAB)[address] [place] [address] [place] EOSINOPHILS/100 LEUKOCYTES IN BLOOD-CELLAVISION 1 % Normal 0-6 [facility] Comment on above: Performed By: #### L [id number], [id number] ####Electromedical Equipment Technician: RUTH ANNMELANIE BRAGG ([phone])[facility] [place] (SBHLAB)[address] [place] [address] [place] LYMPHOCYTES (10*3/UL) IN BLOOD-CELLAVISION 1.1 10*3/uL Normal 1.0-4.3 [facility] Comment on above: Performed By: #### L [id number], [id number] ####Electromedical Equipment Technician: RUTH ANNMELANIE BRAGG ([phone])[facility] [place] (SB[facility]AB)[address] [place] [address] [place] LYMPHOCYTES TOTAL PER COUNTED LEUKOCYTES BY MANUAL COUNT 10 Normal [facility] Comment on above: Performed By: #### L [id number], [id number] ####Electromedical Equipment Technician: RUTH ANN BRAGG ([phone])[facility] [place] (SBHLAB)[address] [place] [address] [place] LYMPHOCYTES/100 LEUKOCYTES IN BLOOD-CELLAVISION 10 % Low 15-45 [facility] Comment on above: Performed By: #### L [id number], [id number] ####Electromedical Equipment Technician: RUTH ANN YEMI ([phone])[facility] [place] (SBHLAB)[address] [place] [address] [place] METAMYELOCYTES TOTAL PER COUNTED LEUKOCYTES BY MANUAL COUNT Normal [facility] Comment on above: Performed By: #### L [id number], [id number] ####Electromedical Equipment Technician: RUTH ANN YEMI ([phone])[facility] [place] (SBHLAB)[address] [place] [address] [place] MONOCYTES (10*3/UL) IN BLOOD-CELLAVISION 1.3 10*3/uL High 0.0-0.9 [facility] Comment on above: Performed By: #### L [id number], [id number] ####Electromedical Equipment Technician: RUTH ANN YEMI ([phone])[facility] [place] (SBHLAB)[address] [place] [address] [place] MONOCYTES TOTAL PER COUNTED LEUKOCYTES BY MANUAL COUNT 12 Normal [facility] Comment on above: Performed By: #### L [id number], [id number] ####Electromedical Equipment Technician: RUTH ANN BRAGG ([phone])[facility] [place] (SBHLAB)[address] [place] [address] [place] MONOCYTES/100 LEUKOCYTES IN BLOOD-TOMMIE 12 % Normal 5-13 [facility] Comment on above: Performed By: #### L [id number], [id number] ####Electromedical Equipment Technician: RUTH ANN BRAGG ([phone])[facility] [place] (SBHLAB)[address] MYELOCYTES COUNTED BY MANUAL COUNT [facility] Comment on above: Performed By: #### L [id number], [id number] ####Electromedical Equipment Technician: RUTH ANN BRAGG ([phone])[facility] [place] (SBHLAB)[address] NEUTROPHILS TOTAL PER COUNTED LEUKOCYTES BY MANUAL COUNT 81 [facility] Comment on above: Performed By: #### L [id number], [id number] ####Electromedical Equipment Technician: RUTH ANN BRAGG ([phone])[facility] [place] (SB[facility])[address] PROMYELOCYTES TOTAL PER COUNTED LEUKOCYTES BY MANUAL COUNT [facility] Comment on above: Performed By: #### L [id number], [id number] ####Electromedical Equipment Technician: RUTH ANN BRAGG ([phone])[facility] [place] (SBHLAB)[address] [place] [address] [place] RBC MORPHOLOGY IN BLOOD Normal Normal [facility] Comment on above: Performed By: #### L [id number], [id number] ####Electromedical Equipment Technician: RUTH ANN BRAGG ([phone])[facility] [place] (SB[facility]AB)[address] [place] [address] [place] SEGMENTED NEUTROPHILS (10*3/UL) IN BLOOD-CELLAVISION 8.7 10*3/uL High 1.8-7.5 [facility] Comment on above: Performed By: #### L [id number], [id number] ####Electromedical Equipment Technician: RUTH ANN BRAGG ([id number])[facility] [place] ([facility])[address] SEGMENTED NEUTROPHILS/100 LEUKOCYTES-CE 78 % Normal 38-82 [facility] Comment on above: Performed By: #### L [id number], [id number] ####Electromedical Equipment Technician: RUTH ANN BRAGG ([phone])[facility] [place] ([facility])[address] UNCLASSIFIED CELLS TOTAL PER COUNTED LEUKOCYTES BY MANUAL COUNT Normal [facility] Comment on above: Performed By: #### L [id number], [id number] ####Electromedical Equipment Technician: RUTH ANN BRAGG ([phone])[facility] (SBHLAB)[address] VARIANT LYMPHOCYTES TOTAL PER COUNTED LEUKOCYTES BY MANUAL COUNT Normal [facility] Comment on above: Performed By: #### L [id number], [id number] ####Electromedical Equipment Technician: RUTH ANN BRAGG ([phone])[facility] ([facility])[address] No Panel Informationon 06-28 Interpretation and review of laboratory results Abnormal [facility] Interpretation and review of laboratory results Abnormal [facility] Interpretation and review of laboratory results Abnormal [facility] Eosinophils Manual 1 0 - 1 [facility] Interpretation and review of laboratory results Abnormal [facility] Lymphocytes Manual 10 [facility] Monocytes Manual 12 [facility] Neutrophils Manual 81 [facility] Interpretation and review of laboratory results Abnormal [facility] Interpretation and review of laboratory results Normal [facility] Interpretation and review of laboratory results Normal [facility] PHOSPHORUSon 06-28-2024 Phosphate [Mass/Vol] 2.9 mg/dL Normal 2.5-4.5 [facility] Comment on above: Performed By: #### L AB17, [id number], [id number] ####Electromedical Equipment Technician: RUTH ANN BRAGG ([phone])[facility] (SBHLAB)[address] [place] [address] [place] Phosphate [Moles/Vol]on 06-09 Phosphate [Mass/Vol] 2.9 mg/dL 2.5 - 4 .5 mg/dL [facility] Progress Noteon 06-28-2024 Progress Note Normal [facility] Progress Note Normal [facility] 30on 06-27-2024 30 Normal [facility] 30 Normal [facility] [id number] 06-27-2024 [id number] Pt still lethargic and only arousable to noxious stimuli. Awaiting Palliative Care Cons prior to IA being completed. TCC will continue to follow. Normal [facility] AMMONIAon 06-27-2024 Ammonia (P) [Moles/Vol] 48 umol/L High 9-30 S [facility] Comment on above: Performed By: #### L [id number] ####Electromedical Equipment Technician: RUTH ANN BRAGG ([phone])[facility] ([facility])[address] [place] [address] CALCIUM, IONIZEDon CALCIUM IONIZED 4.70 mg/dL Normal 4.30-5.20 [facility] Comment on above: Performed By: #### L AB54 ####Electromedical Equipment Technician: RUTH ANN BRAGG ([phone])[facility] ([facility])[address] [place] [address] PH, IONIZED CALCIUM 7.41 Normal 7.31-7.46 [facility] Comment on above: Performed By: #### L AB54 ####Electromedical Equipment Technician: RUTH ANN BRAGG ([phone])[facility] (SB[facility])[address] CBC W Auto Differential pane l (Bld)Ordered By: Osiel White on 06-27-2024 Erythrocyte distribution width (RBC) [Ratio] 15.3 % High 11.5 - 15.0 % [facility] Hematocrit (Bld) [Volume fraction] 27.1 % Low 35.0 - 47.0 % [facility] Hemoglobin (Bld) [Mass/Vol] 8.6 g/dL Low 11.7 - 16.0 g/dL [facility] MCH (RBC) [Entitic mass] 31 pg 26. 0 - 34.0 pg [facility] MCHC (RBC) [Mass/Vol] 31.7 % 30.5 - 36.0 % [facility] MCV (RBC) [Entitic vol] 97.8 fL 77.0 - 99.0 fL [facility] Platelet mean volume (Bld) [Entitic vol] 11.2 fL 9.0 - 12.7 fL [facility] Platelets (Bld) [#/Vol] 122 10*3/uL Low 140 - 440 10*3/uL [facility] RBC (Bld) [#/Vol] 2.77 10*6/uL Low 3.80 - 5.2 0 10*6/uL [facility] WBC (Bld) [#/Vol] 11.9 10*3/uL High 3.6 - 10.7 10*3/uL [facility] CBC WITH AUTO DIFFERENTIALon 06-27-2024 Erythrocyte distribution width (RBC) [Ratio] 15.3 % High 11.5-15.0 [facility] Comment on above: Performed By: #### L [id number], [id number] ####Electromedical Equipment Technician: RUTH ANN BRAGG ([phone])[facility] ([facility])[address] [place] [address] Hematocrit (Bld) [Volume fraction] 27.1 % Low 35.0-47.0 [facility] Comment on above: Performed By: #### L [id number], [id number] ####Electromedical Equipment Technician: RUTH ANN BRAGG ([phone])[facility] ([facility] Hemoglobin (Bld) [Mass/Vol] 8.6 g/dL Low 11.7-16.0 [facility] Comment on above: Performed By: #### L [id number], [id number] ####Electromedical Equipment Technician: RUTH ANN BRAGG ([phone])[facility] ([facility])[address] MCH (RBC) [Entitic mass] 31.0 pg Normal 26.0-34.0 [facility] Comment on above: Performed By: #### L [id number], [id number] ####Electromedical Equipment Technician: RUTH ANN BRAGG ([phone])[facility] [place] ([facility])[address] MCHC 31.7 % Normal 30.5-36.0 [facility] Comment on above: Performed By: #### L [id number], [id number] ####Electromedical Equipment Technician: RUTH ANN BRAGG ([phone])[facility] ([facility])[address] MCV (RBC) [Entitic vol] 97.8 fL Normal 77.0-99.0 S [facility] Comment on above: Performed By: #### L [id number], [id number] ####Electromedical Equipment Technician: RUTH ANN BRAGG ([phone])[facility] ([facility])[address] Platelet mean volume (Bld) [Entitic vol] 11.2 fL Normal 9.0-12.7 [facility] Comment on above: Performed By: #### L [id number], [id number] ####Electromedical Equipment Technician: RUTH ANN BRAGG ([phone])[facility] (SB[facility])[address] [place] [address] [place] Platelets (Bld) [#/Vol] 122 10*3/uL Low 140-440 [facility] Comment on above: Performed By: #### L [id number], [id number] ####Electromedical Equipment Technician: RUTH ANN BRAGG ([phone])[facility] (SBHLAB)[address] RBC (Bld) [#/Vol] 2.77 10*6/uL Low 3.80-5.20 [facility] Comment on above: Performed By: #### L [id number], [id number] ####Electromedical Equipment Technician: RUTH ANN BRAGG ([phone])[facility]ITAL[facility] SANDERSN (SBHLAB)[address] WBC (Bld) [#/Vol] 11.9 10*3/uL High 3.6-10.7 [facility] Comment on above: Performed By: #### L [id number], [id number] ####Electromedical Equipment Technician: RUTH ANN BRAGG ([phone])[facility]ITAL[facility] MONTGOMERYUNM [facility] (SBHLAB)[address] COMPREHENSIVE METABOLIC PANE Smith 06-27-2024 Albumin [Mass/Vol] 3.0 g/dL Low 3.5-5.0 [facility] Comment on above: Performed By: #### L AB17, [id number], [id number] ####Electromedical Equipment Technician: RUTH ANN BRAGG ([phone])[facility] (SBHLAB)[address] ALP [Catalytic activity/Vol] 64 U/L Normal 38-126 [facility] Comment on above: Performed By: #### L AB17, XTC261, [id number] ####Electromedical Equipment Technician: RUTH ANN BRAGG ([phone])[facility] (SBHLAB)[address] ALT [Catalytic activity/Vol] 20 U/L Normal 0-34 [facility] Comment on above: Performed By: #### L AB17, [id number], [id number] ####Electromedical Equipment Technician: RUTH ANN BRAGG ([phone])[facility] [place] (SBHLAB)[address] Anion gap [Moles/Vol] 7 mmol/L Normal 3-13 [facility] Comment on above: Performed By: #### L AB17, BIF611, FVL273 ####Electromedical Equipment Technician: RUTH ANN BRAGG ([phone])[facility] (SBHLAB)[address] AST [Catalytic activity/Vol] 41 U/L Normal 15-46 [facility] Comment on above: Performed By: #### L AB17, ZVG270, RSL459 ####Electromedical Equipment Technician: RUTH ANN BRAGG ([phone])[facility] [place] (SBHLAB)[address] Bilirubin [Mass/Vol] 0.9 mg/dL Normal 0.2-1.3 [facility] Comment on above: Performed By: #### L AB17, CRL621, LZF388 ####Electromedical Equipment Technician: RUTH ANN BRAGG ([phone])[facility] [place] (SBHLAB)[address] Calcium [Mass/Vol] 9.2 mg/dL Normal 8.4-10.4 [facility] Comment on above: Performed By: #### L AB17, XMK423, YAK925 ####Electromedical Equipment Technician: RUTH ANN BRAGG ([phone])[facility] [place] (SBHLAB)155 [place] [address] [place] Chloride [Moles/Vol] 120 mmol/L High 98-107 [facility] Comment on above: Performed By: #### L AB17, BBY070, [id number] ####Electromedical Equipment Technician: RUTH ANN BRAGG ([phone])[facility] [place] (SBHLAB)[address] CO2 [Moles/Vol] 20 mmol/L Low 22-30 [facility] Comment on above: Performed By: #### L AB17, EWL229, SJX128 ####Electromedical Equipment Technician: RUTH ANN BRAGG ([phone])[facility] [place] (SBHLAB)155 [place] [address] [place] Creatinine [Mass/Vol] 1.59 mg/dL High 0.52-1.04 [facility] Comment on above: Performed By: #### L AB17, UVI646, BPB680 ####Electromedical Equipment Technician: RUTH ANN BRAGG ([phone])[facility] [place] (SBHLAB)155 [place] [address] [place] GLOMERULAR FILTRATION RATE ML/MIN/1.73 SQ M.PREDICTED 33.1 mL/min/1.73m*2 Low >60.0 [facility] Comment on above: Result Comment: Calc ulation based on the Chronic Kidney Disease Epidemiology Collaboration (CKD-EPI) equation refit without adjustment for race Performed By: #### L AB17, RZH450, VLH884 ####Electromedical Equipment Technician: RUTH ANN BRAGG ([phone])[facility] (SBHLAB)[address] Glucose [Mass/Vol] 159 mg/dL High 70-100 [facility] Comment on above: Performed By: #### L AB17, YAP865, RSL876 ####Electromedical Equipment Technician: RUTH ANN BRAGG ([phone])[facility] (SBHLAB)[address] Potassium [Moles/Vol] 3.3 mmol/L Low 3.5-5.1 [facility] Comment on above: Performed By: #### L AB17, CKR707, QMG613 ####Electromedical Equipment Technician: RUTH ANN BRAGG ([phone])[facility] (SBHLAB)[address] Protein [Mass/Vol] 6.0 g/dL Low 6.3-8.2 [facility] Comment on above: Performed By: #### L AB17, DEF349, BUB057 ####Electromedical Equipment Technician: RUTH ANN BRAGG ([phone])[facility] (SBHLAB)155 [place] [address] [place] Sodium [Moles/Vol] 147 mmol/L High 135-145 [facility] Comment on above: Performed By: #### L AB17, TZH593, AFD731 ####Electromedical Equipment Technician: RUTH ANN BRAGG ([phone])[facility] (SBHLAB)155 [place] [address] [place] Urea nitrogen [Mass/Vol] 51 mg/dL High 7-17 [facility] Comment on above: Performed By: #### L AB17, XQH128, PQM140 ####Electromedical Equipment Technician: RUTH ANN BRAGG ([phone])[facility] [place] (SBHLAB)[address] [place] [address] Calcium.ionized [Moles/Vol]o n 06-27-2024 Calcium.ionized (Bld) [Moles/Vol] 4.7 mg/dL 4.30 - 5.20 mg/dL [facility] Interpretation and review of laboratory results Normal [facility] PH, IONIZED CALCIUM 7.41 7.31 - 7.46 [facility] Comprehensive metabolic 1998 panelon 06-27-2024 Albumin [Mass/Vol] 3 g/dL Low 3.5 - 5.0 g/dL [facility] ALP [Catalytic activity/Vol] 64 U/L 38 - 126 U/L [facility] ALT [Catalytic activity/Vol] 20 U/L 0 - 34 U/L [facility] Anion gap [Moles/Vol] 7 mmol/L 3 - 13 mmol/L [facility] AST [Catalytic activity/Vol] 41 U/L 15 - 46 U/L [facility] Bilirubin [Mass/Vol] 0.9 mg/dL 0.2 - 1 .3 mg/dL [facility] Calcium [Mass/Vol] 9.2 mg/dL 8.4 - 10. 4 mg/dL [facility] Chloride [Moles/Vol] 120 mmol/L High 98 - 10 7 mmol/L [facility] CO2 [Moles/Vol] 20 mmol/L Low 22 - 30 mmol/L [facility] Creatinine [Mass/Vol] 1.59 mg/dL High 0.52 - 1.04 mg/dL [facility] GFR/1.73 sq M.predicted (S/P/Bld) [Vol rate/Area] 33.1 mL/min Low - PINF [facility] Glucose [Mass/Vol] 159 mg/dL High 70 - 100 mg/dL [facility] Interpretation and review of laboratory results Abnormal [facility] Potassium [Moles/Vol] 3.3 mmol/L Low 3.5 - 5.1 mmol/L [facility] Protein [Mass/Vol] 6 g/dL Low 6.3 - 8.2 g/dL [facility] Sodium [Moles/Vol] 147 mmol/L High 135 - 145 mmol/L [facility] Urea nitrogen [Mass/Vol] 51 mg/dL High 7 - 17 mg/dL [facility] HEMOGLOBIN AND HEMATOCRIT, B LOODon 06-27-2024 Hematocrit (Bld) [Volume fraction] 27.7 % Low 35.0-47.0 [facility] Comment on above: Performed By: #### L [id number] ####Electromedical Equipment Technician: RUTH ANN BRAGG ([phone])[facility] [place] (SBHLAB)[address] Hemoglobin (Bld) [Mass/Vol] 8.7 g/dL Low 11.7-16.0 [facility] Comment on above: Performed By: #### L [id number] ####Electromedical Equipment Technician: RUTH ANN BRAGG ([phone])[facility] [place] (SBHLAB)[address] Hematocrit (Bld) [Volume fraction] 28.1 % Low 35.0-47.0 [facility] Comment on above: Performed By: #### L [id number] ####Electromedical Equipment Technician: RUTH ANN BRAGG ([phone])[facility] [place] (SBHLAB)[address] Hemoglobin (Bld) [Mass/Vol] 9.0 g/dL Low 11.7-16.0 [facility] Comment on above: Performed By: #### L [id number] ####Electromedical Equipment Technician: RUTH ANN BRAGG ([phone])[facility] [place] (SBHLAB)[address] Hematocrit (Bld) [Volume fraction] 29.0 % Low 35.0-47.0 [facility] Comment on above: Performed By: #### L [id number] ####Electromedical Equipment Technician: RUTH ANN BRAGG ([phone])[facility] [place] (SBHLAB)[address] Hemoglobin (Bld) [Mass/Vol] 9.3 g/dL Low 11.7-16.0 [facility] Comment on above: Performed By: #### L [id number] ####Electromedical Equipment Technician: RUTH ANN [phone])[facility] (SBHLAB)[address] Hematocrit (Bld) [Volume fraction] 27.1 % Low 35.0-47.0 [facility] Comment on above: Performed By: #### L [id number] ####Electromedical Equipment Technician: RUTH ANN HERRONSHELTON ([phone])[facility] ([facility] [place] [address] Hemoglobin (Bld) [Mass/Vol] 8.7 g/dL Low 11.7-16.0 [facility] Comment on above: Performed By: #### L [id number] ####Electromedical Equipment Technician: RUTH ANN HERRONSHELTON ([phone])[facility] ([facility])[address] [place] [address] Hemoglobin (Bld) [Mass/Vol]o n 06-27-2024 Hematocrit (Bld) [Volume fraction] 27.7 % Low 35.0 - 47.0 % [facility] Interpretation and review of laboratory results Abnormal [facility] Hematocrit (Bld) [Volume fraction] 28.1 % Low 35.0 - 47.0 % [facility] Interpretation and review of laboratory results Abnormal [facility] Hematocrit (Bld) [Volume fraction] 29 % Low 35.0 - 47.0 % [facility] Interpretation and review of laboratory results Abnormal [facility] Hematocrit (Bld) [Volume fraction] 27.1 % Low 35.0 - 47.0 % [facility] Interpretation and review of laboratory results Abnormal [facility] Laboratory - Chemistry and C hemistry - challengeon 06-27-2024 Glucose [Mass/Vol] 188 mg/dL High 70 - 100 mg/dL [facility] Glucose [Mass/Vol] 159 mg/dL High 70 - 100 mg/dL [facility] Glucose [Mass/Vol] 186 mg/dL High 70 - 100 mg/dL [facility] Glucose [Mass/Vol] 168 mg/dL High 70 - 100 mg/dL [facility] Magnesium [Mass/Vol] 2 mg/dL 1.6 - 2 .3 mg/dL [facility] Ammonia (P) [Moles/Vol] 48 umol/L High 9 - 30 umol/L [facility] Glucose [Mass/Vol] 195 mg/dL High 70 - 100 mg/dL [facility] Laboratory - Hematology and Cell countson 06-27-2024 Hemoglobin (Bld) [Mass/Vol] 8.7 g/dL Low 11.7 - 16.0 g/dL [facility] Hemoglobin (Bld) [Mass/Vol] 9 g/dL Low 11.7 - 16.0 g/dL [facility] Hemoglobin (Bld) [Mass/Vol] 9.3 g/dL Low 11.7 - 16.0 g/dL [facility] Anisocytosis Ql (Bld) Slight Abnormal (none) [facility] Lymphocytes (Bld) [#/Vol] 0.6 10*3/uL Low 1. 0 - 4.3 10*3/uL [facility] Lymphocytes/100 WBC (Bld) 5 % Low 15 - 45 % [facility] Monocytes (Bld) [#/Vol] 0.7 10*3/uL 0.0 - 0.9 10*3/uL [facility] Monocytes/100 WBC (Bld) 6 % 5 - 13 % [facility] Neutrophils (Bld) [#/Vol] 10.6 10*3/uL High 1. 8 - 7.5 10*3/uL [facility] Ovalocytes LM Ql (Bld) Slight Abnormal (none) [facility] Poikilocytosis LM Ql (Bld) Slight Abnormal (none) [facility] RBC morphology finding Nom (Bld) abnormal [facility] Segmented neutrophils/100 WBC (Bld) 89 % High 38 - 82 % [facility] Target cells LM Ql (Bld) Slight Abnormal (none) [facility] Hemoglobin (Bld) [Mass/Vol] 8.7 g/dL Low 11.7 - 16.0 g/dL [facility] MAGNESIUMon 06-27-2024 Magnesium [Mass/Vol] 2.0 mg/dL Normal 1.6-2.3 [facility] Comment on above: Performed By: #### L AB17, [id number], [id number] ####Electromedical Equipment Technician: RUTH ANN BRAGG ([phone])[facility] [place] (SBHLAB)[address] [place] [address] MANUAL DIFFERENTIAL (CELLAVI KRISTIAN)on 06-27-2024 ANISOCYTOSIS PRESENCE IN BLOOD BY LIGHT MICROSCOPY Slight Abnormal (none) [facility] Comment on above: Performed By: #### L [id number], [id number] ####Electromedical Equipment Technician: RUTH ANN BRAGG ([phone])[facility] [place] (SBHLAB)[address] BAND NEUTROPHILS TOTAL PER COUNTED LEUKOCYTES BY MANUAL COUNT Normal [facility] Comment on above: Performed By: #### L [id number], [id number] ####Electromedical Equipment Technician: RUTH ANN BRAGG ([phone])[facility] [place] (SBHLAB)[address] BASOPHILS TOTAL PER COUNTED LEUKOCYTES BY MANUAL COUNT [facility] Comment on above: Performed By: #### L [id number], [id number] ####Electromedical Equipment Technician: RUTH ANN BRAGG ([phone])[facility] [place] (SBHLAB)[address] BLASTS TOTAL PER COUNTED LEUKOCYTES BY MANUAL COUNT [facility] Comment on above: Performed By: #### L [id number], [id number] ####Electromedical Equipment Technician: RUTH ANN BRAGG ([phone])[facility] [place] (SBHLAB)[address] EOSINOPHILS TOTAL PER COUNTED LEUKOCYTES BY MANUAL COUNT [facility] Comment on above: Performed By: #### L [id number], [id number] ####Electromedical Equipment Technician: RUTH ANN BRAGG ([phone])[facility] [place] (SBHLAB)155 [place] [address] [place] LYMPHOCYTES (10*3/UL) IN BLOOD-CELLAVISION 0.6 10*3/uL Low 1.0-4.3 [facility] Comment on above: Performed By: #### L [id number], [id number] ####Electromedical Equipment Technician: RUTH ANN BRAGG ([phone])[facility] [place] (SBHLAB)[address] [place] [address] [place] LYMPHOCYTES TOTAL PER COUNTED LEUKOCYTES BY MANUAL COUNT 5 Normal [facility] Comment on above: Performed By: #### L [id number], [id number] ####Electromedical Equipment Technician: RUTH ANN BRAGG ([phone])[facility] [place] (SBHLAB)[address] [place] [address] [place] LYMPHOCYTES/100 LEUKOCYTES IN BLOOD-CELLAVISION 5 % Low 15-45 [facility] Comment on above: Performed By: #### L [id number], [id number] ####Electromedical Equipment Technician: RUTH ANN BRAGG ([phone])[facility] [place] (SBHLAB)[address] [place] [address] [place] METAMYELOCYTES TOTAL PER COUNTED LEUKOCYTES BY MANUAL COUNT [facility] Comment on above: Performed By: #### L [id number], [id number] ####Electromedical Equipment Technician: RUTH ANN BRAGG ([phone])[facility] [place] (SBHLAB)[address] [place] [address] [place] MONOCYTES (10*3/UL) IN BLOOD-CELLAVISION 0.7 10*3/uL Normal 0.0-0.9 [facility] Comment on above: Performed By: #### L [id number], [id number] ####Electromedical Equipment Technician: RUTH ANN BRAGG ([id number])[facility] [place] (SBHLAB)[address] [place] [address] [place] MONOCYTES TOTAL PER COUNTED LEUKOCYTES BY MANUAL COUNT 6 Normal [facility] Comment on above: Performed By: #### L [id number], [id number] ####Electromedical Equipment Technician: RUTH ANN BRAGG ([phone])[facility] [place] (SBHLAB)[address] [place] [address] [place] MONOCYTES/100 LEUKOCYTES IN BLOOD-TOMMIE 6 % Normal 5-13 [facility] Comment on above: Performed By: #### L [id number], [id number] ####Electromedical Equipment Technician: RUTH ANN BRAGG ([phone])[facility] [place] (SBHLAB)[address] [place] [address] [place] MYELOCYTES COUNTED BY MANUAL COUNT [facility] Comment on above: Performed By: #### L [id number], [id number] ####Electromedical Equipment Technician: RUTH ANN BRAGG ([phone])[facility] [place] (SBHLAB)[address] NEUTROPHILS TOTAL PER COUNTED LEUKOCYTES BY MANUAL COUNT 89 Normal [facility] Comment on above: Performed By: #### L [id number], [id number] ####Electromedical Equipment Technician: RUTH ANN BRAGG ([phone])[facility] [place] [facility] (SBHLAB)[address] OVALOCYTES PRESENCE IN BLOOD BY LIGHT MICROSCOPY Slight Abnormal (none) [facility] Comment on above: Performed By: #### L [id number], [id number] ####Electromedical Equipment Technician: RUTH ANN BRAGG ([phone])[facility] (SBHLAB)[address] [place] [address] [place] POIKILOCYTOSIS (PRESENCE) IN BLOOD BY LIGHT MICROSCOPY Slight Abnormal (none) [facility] Comment on above: Performed By: #### L [id number], [id number] ####Electromedical Equipment Technician: RUTH ANN BRAGG ([phone])[facility] [place] (HLAB)155 [place] [address] [place] PROMYELOCYTES TOTAL PER COUNTED LEUKOCYTES BY MANUAL COUNT Normal [facility] Comment on above: Performed By: #### L [id number], [id number] ####Electromedical Equipment Technician: RUTH ANN BRAGG ([phone])[facility] (SBHLAB)[address] [place] [address] [place] RBC MORPHOLOGY IN BLOOD abnormal Normal S [facility] Comment on above: Performed By: #### L [id number], [id number] ####Electromedical Equipment Technician: RUTH ANN BRAGG ([phone])[facility] (SBHLAB)155 [place] [address] [place] SEGMENTED NEUTROPHILS (10*3/UL) IN BLOOD-CELLAVISION 10.6 10*3/uL High 1.8-7.5 [facility] Comment on above: Performed By: #### L [id number], [id number] ####Electromedical Equipment Technician: RUTH ANN BRAGG ([phone])[facility] [place] [facility] (SBHLAB)[address] SEGMENTED NEUTROPHILS/100 LEUKOCYTES-CE 89 % High 38-82 [facility] Comment on above: Performed By: #### L [id number], [id number] ####Electromedical Equipment Technician: RUTH ANN BRAGG ([phone])[facility] [place] [facility] (SBHLAB)[address] TARGET CELLS IN BLOOD BY LIGHT MICROSCOPY Slight Abnormal (none) [facility] Comment on above: Performed By: #### L [id number], [id number] ####Electromedical Equipment Technician: RUTH ANN BRAGG ([phone])[facility] (SBHLAB)[address] UNCLASSIFIED CELLS TOTAL PER COUNTED LEUKOCYTES BY MANUAL COUNT Normal [facility] Comment on above: Performed By: #### L [id number], [id number] ####Electromedical Equipment Technician: RUTH ANN BRAGG ([phone])[facility] [place] (SBHLAB)[address] VARIANT LYMPHOCYTES TOTAL PER COUNTED LEUKOCYTES BY MANUAL COUNT Normal [facility] Comment on above: Performed By: #### L [id number], [id number] ####Electromedical Equipment Technician: RUTH ANN BRAGG ([phone])[facility] (SBHLAB)[address] No Panel Informationon 06-27 Interpretation and review of laboratory results Abnormal [facility] Interpretation and review of laboratory results Abnormal [facility] Interpretation and review of laboratory results Abnormal [facility] Interpretation and review of laboratory results Abnormal [facility] Interpretation and review of laboratory results Normal [facility] Lymphocytes Manual 5 [facility] Monocytes Manual 6 [facility] alth Neutrophils Manual 89 [facility] Interpretation and review of laboratory results Abnormal [facility] Interpretation and review of laboratory results Abnormal [facility] No Panel InformationOrdered By: Osiel White on 06-27-2024 Interpretation and review of laboratory results Abnormal [facility] PHOSPHORUSon 06-27-2024 Phosphate [Mass/Vol] 3.7 mg/dL Normal 2.5-4.5 [facility] Comment on above: Performed By: #### L AB17, [id number], PXB202 ####Electromedical Equipment Technician: RUTH ANN BRAGG ([phone])[facility] ([facility])[address] [place] [address] [place] Phosphate [Moles/Vol]on 06-09 Phosphate [Mass/Vol] 3.7 mg/dL 2.5 - 4 .5 mg/dL [facility] Progress Noteon 06-27-2024 Progress Note Normal [facility] Progress Note Normal [facility] 30on 06-26-2024 30 Normal [facility] [id number] 06-26-2024 [id number] Normal [facility] AMMONIAon 06-26-2024 Ammonia (P) [Moles/Vol] 134 umol/L High 9-30 S [facility] Comment on above: Performed By: #### L [id number] ####Electromedical Equipment Technician: RUTH ANN BRAGG ([phone])[facility] ([facility])[address] [place] [address] [place] BLOOD GAS ARTERIALon 024 Base excess Calc (Bld) [Moles/Vol] -2.4000 mmol/L Normal -3.0-3.0 [facility] Comment on above: Performed By: #### L AB76 ####Electromedical Equipment Technician: RUTH ANN BRAGG ([phone])[facility] ([facility])[address] [place] [address] [place] CO2 [Moles/Vol] 21.5 mmol/L Low 22.0-28.0 [facility] Comment on above: Performed By: #### L AB76 ####Electromedical Equipment Technician: RUTH ANN BRAGG ([phone])[facility] ([facility])[address] HCO3 (Bld) [Moles/Vol] 20.7 mmol/L Low 21.0-27.0 S [facility] Comment on above: Performed By: #### L AB76 ####Electromedical Equipment Technician: RUTH ANN BRAGG ([phone])[facility] [place] (SBHLAB)[address] Hemoglobin (Bld) [Mass/Vol] 8.6 g/dL Low Screen only [facility] Comment on above: Performed By: #### L AB76 ####Electromedical Equipment Technician: RUTH ANN BRAGG ([phone])[facility] (SBHLAB)[address] OXYGEN SATURATION (%) IN ARTERIAL BLOOD 96.6 % Low 97.0-99.0 [facility] Comment on above: Performed By: #### L AB76 ####Electromedical Equipment Technician: RUTH ANN BRAGG ([phone])[facility] (SBHLAB)[address] PCO2 ARTERIAL 29.1 mm Hg Low 32.0-45.0 [facility] Comment on above: Performed By: #### L AB76 ####Electromedical Equipment Technician: RUTH ANN BRAGG ([phone])[facility] (SBHLAB)[address] PH ARTERIAL 7.469 High 7.350-7.450 [facility] Comment on above: Performed By: #### L AB76 ####Electromedical Equipment Technician: RUTH ANN BRAGG ([phone])[facility] [place] (SBHLAB)[address] PO2 ARTERIAL 97.0 mm Hg Normal 83.0-108.0 [facility] Comment on above: Performed By: #### L AB76 ####Electromedical Equipment Technician: RUTH ANN BRAGG ([phone])[facility] (SBHLAB)[address] SOURCE OF OXYGEN Room Air Normal [facility] Comment on above: Performed By: #### L AB76 ####Electromedical Equipment Technician: RUTH ANN BRAGG ([phone])[facility] ([facility])[address] [place] [address] BLOOD TYPE AND SCREEN GELon 06-26-2024 ABO GROUPING O Normal [facility] Comment on above: Performed By: #### L [id number] ####Electromedical Equipment Technician: RUTH ANN BRAGG ([phone])[facility] BLOOD BANK ([facility])[address] RH TYPE IN BLOOD Positive Normal [facility] Comment on above: Performed By: #### L [id number] ####Electromedical Equipment Technician: RUTH ANN BRAGG ([phone])[facility] BLOOD [facility] ([facility])[address] [place] [address] Blood type and Crossmatch pa maryann (Bld)on 06-26-2024 ABO group Nom (Bld) O [facility] Blood group antibody screen GEL Ql Negative [facility] D Ag Ql [facility]RBC) [facility] CBC (HEMOGRAM)on 06-26-2024 Erythrocyte distribution width (RBC) [Ratio] 15.0 % Normal 11.5-15.0 [facility] Comment on above: Performed By: #### L [id number] ####Electromedical Equipment Technician: RUTH ANN BRAGG ([phone])[facility] ([facility])[address] [place] [address] Hematocrit (Bld) [Volume fraction] 27.2 % Low 35.0-47.0 [facility] Comment on above: Performed By: #### L [id number] ####Electromedical Equipment Technician: RUTH ANN BRAGG ([phone])[facility] ([facility])[address] [place] [address] Hemoglobin (Bld) [Mass/Vol] 8.5 g/dL Low 11.7-16.0 [facility] Comment on above: Performed By: #### L [id number] ####Electromedical Equipment Technician: RUTH ANN BRAGG ([phone])[facility] [place] (SBHLAB)[address] MCH (RBC) [Entitic mass] 31.5 pg Normal 26.0-34.0 [facility] Comment on above: Performed By: #### L [id number] ####Electromedical Equipment Technician: RUTH ANN BRAGG ([phone])[facility] [place] (SBHLAB)[address] MCHC 31.3 % Normal 30.5-36.0 [facility] Comment on above: Performed By: #### L [id number] ####Electromedical Equipment Technician: RUTH ANN BRAGG ([phone])[facility] [place] (SBHLAB)[address] MCV (RBC) [Entitic vol] 100.7 fL High 77.0-99.0 [facility] Comment on above: Performed By: #### L [id number] ####Electromedical Equipment Technician: RUTH ANN BRAGG ([phone])[facility] [place] (SBHLAB)[address] Platelet mean volume (Bld) [Entitic vol] 11.1 fL Normal 9.0-12.7 [facility] Comment on above: Performed By: #### L [id number] ####Electromedical Equipment Technician: RUTH ANN BRAGG ([phone])[facility] [place] (SBHLAB)155 [place] [address] [place] Platelets (Bld) [#/Vol] 127 10*3/uL Low 140-440 [facility] Comment on above: Performed By: #### L [id number] ####Electromedical Equipment Technician: RUTH ANN BRAGG ([phone])[facility] [place] (SBHLAB)155 [place] [address] [place] RBC (Bld) [#/Vol] 2.70 10*6/uL Low 3.80-5.20 [facility] Comment on above: Performed By: #### L [id number] ####Electromedical Equipment Technician: RUTH ANN BRAGG ([phone])[facility] (SBHLAB)[address] WBC (Bld) [#/Vol] 7.9 10*3/uL Normal 3.6-10.7 [facility] Comment on above: Performed By: #### L [id number] ####Electromedical Equipment Technician: RUTH ANN BRAGG ([phone])[facility] (SBHLAB)[address] CBC W Auto Differential pane l (Bld)on 06-26-2024 Basophils (Bld) [#/Vol] 0 10*3/uL 0.0 - 0.2 10*3/uL [facility] Basophils/100 WBC (Bld) 0.5 % 0.0 - 2.0 % [facility] Eosinophils (Bld) [#/Vol] 0 10*3/uL 0. 0 - 0.5 10*3/uL [facility] Eosinophils/100 WBC (Bld) 0.2 % 0.0 - 6.0 % [facility] Erythrocyte distribution width (RBC) [Ratio] 14.6 % 11.5 - 15.0 % [facility] Hematocrit (Bld) [Volume fraction] 25.3 % Low 35.0 - 47.0 % [facility] Hemoglobin (Bld) [Mass/Vol] 7.9 g/dL Low 11.7 - 16.0 g/dL [facility] Immature granulocytes (Bld) [#/Vol] 0 10*3/uL NINF - 0.1 10*3/uL [facility] [employer] Immature granulocytes/100 WBC (Bld) 0.5 % 0.0 - 2.0 % [facility] Interpretation and review of laboratory results Abnormal [facility] th IPF 3 [facility] [employer] Lymphocytes (Bld) [#/Vol] 0.8 10*3/uL Low 1. 0 - 4.3 10*3/uL [facility] [employer] Lymphocytes/100 WBC (Bld) 12.7 % Low 15 .0 - 45.0 % [facility] MCH (RBC) [Entitic mass] 30.3 pg 26. 0 - 34.0 pg [facility] MCHC (RBC) [Mass/Vol] 31.2 % 30.5 - 36.0 % [facility] MCV (RBC) [Entitic vol] 96.9 fL 77.0 - 99.0 fL [facility] Monocytes (Bld) [#/Vol] 0.8 10*3/uL 0.0 - 0.9 10*3/uL [facility] Monocytes/100 WBC (Bld) 12.7 % 5.0 - 13.0 % [facility] Neutrophils (Bld) [#/Vol] 4.9 10*3/uL 1. 8 - 7.5 10*3/uL [facility] Neutrophils/100 WBC (Bld) 73.4 % 38 .0 - 82.0 % [facility] Nucleated RBC/100 WBC (Bld) [Ratio] 0 % [facility] Platelet mean volume (Bld) [Entitic vol] 11.2 fL 9.0 - 12.7 fL [facility] Platelets (Bld) [#/Vol] 106 10*3/uL Low 140 - 440 10*3/uL [facility] RBC (Bld) [#/Vol] 2.61 10*6/uL Low 3.80 - 5.2 0 10*6/uL [facility] WBC (Bld) [#/Vol] 6.6 10*3/uL 3.6 - 10.7 10*3/uL [facility] CBC WITH AUTO DIFFERENTIALon 06-26-2024 Basophils (Bld) [#/Vol] 0.0 10*3/uL Normal 0.0-0.2 [facility] Comment on above: Performed By: #### L [id number] ####Electromedical Equipment Technician: RUTH ANN BRAGG ([phone])[facility] (SBHLAB)[address] [place] [address] Basophils/100 WBC (Bld) 0.5 % Normal 0.0-2.0 [facility] Comment on above: Performed By: #### L [id number] ####Electromedical Equipment Technician: RUTH ANN BRAGG ([phone])[facility] (SBHLAB)[address] [place] [address] Eosinophils (Bld) [#/Vol] 0.0 10*3/uL Normal 0.0-0.5 [facility] Comment on above: Performed By: #### L [id number] ####Electromedical Equipment Technician: RUTH ANN HERRONSHELTON ([phone])[facility] (SBHLAB)[address] [place] [address] Eosinophils/100 WBC (Bld) 0.2 % Normal 0.0-6.0 [facility] Comment on above: Performed By: #### L [id number] ####Electromedical Equipment Technician: RUTH ANN BRAGG ([id number])[facility] ([facility] Erythrocyte distribution width (RBC) [Ratio] 14.6 % Normal 11.5-15.0 [facility] Comment on above: Performed By: #### L [id number] ####Electromedical Equipment Technician: RUTH ANN HERRONSHELTON ([phone])[facility] ([facility])[address] [place] [address] Hematocrit (Bld) [Volume fraction] 25.3 % Low 35.0-47.0 [facility] Comment on above: Performed By: #### L [id number] ####Electromedical Equipment Technician: RUTH ANN HERRONSHELTON ([phone])[facility] ([facility])[address] [place] [address] Hemoglobin (Bld) [Mass/Vol] 7.9 g/dL Low 11.7-16.0 [facility] Comment on above: Performed By: #### L [id number] ####Electromedical Equipment Technician: RUTH ANN BRAGG ([phone])[facility] ([facility])[address] IMMATURE GRANS % 0.5 % Normal 0.0-2.0 [facility] Comment on above: Performed By: #### L [id number] ####Electromedical Equipment Technician: RUTH ANN BRAGG ([phone])[facility] ([facility])[address] IMMATURE GRANS ABSOLUTE 0.0 10*3/uL Normal <0.1 [facility] Comment on above: Performed By: #### L [id number] ####Electromedical Equipment Technician: RUTH ANN BRAGG ([phone])[facility] [place] (SBHLAB)[address] IPF 3 Normal [facility] Comment on above: Performed By: #### L [id number] ####Electromedical Equipment Technician: RUTH ANN BRAGG ([phone])[facility] [place] (SBHLAB)[address] Lymphocytes (Bld) [#/Vol] 0.8 10*3/uL Low 1.0-4.3 [facility] Comment on above: Performed By: #### L [id number] ####Electromedical Equipment Technician: RUTH ANN BRAGG ([phone])[facility] [place] (SBHLAB)[address] Lymphocytes/100 WBC (Bld) 12.7 % Low 15.0-45.0 [facility] Comment on above: Performed By: #### L [id number] ####Electromedical Equipment Technician: RUTH ANN BRAGG ([phone])[facility] [place] (SBHLAB)[address] MCH (RBC) [Entitic mass] 30.3 pg Normal 26.0-34.0 [facility] Comment on above: Performed By: #### L [id number] ####Electromedical Equipment Technician: RUTH ANN BRAGG ([phone])[facility] [place] (SBHLAB)[address] MCHC 31.2 % Normal 30.5-36.0 [facility] Comment on above: Performed By: #### L [id number] ####Electromedical Equipment Technician: RUTH ANN BRAGG ([phone])[facility] [place] (SBHLAB)[address] MCV (RBC) [Entitic vol] 96.9 fL Normal 77.0-99.0 [facility] Comment on above: Performed By: #### L [id number] ####Electromedical Equipment Technician: RUTH ANN BRAGG ([phone])[facility] [place] (SBHLAB)[address] Monocytes (Bld) [#/Vol] 0.8 10*3/uL Normal 0.0-0.9 [facility] Comment on above: Performed By: #### L [id number] ####Electromedical Equipment Technician: RUTH ANN BRAGG ([phone])[facility] [place] (SBHLAB)[address] Monocytes/100 WBC (Bld) 12.7 % Normal 5.0-13.0 [facility] Comment on above: Performed By: #### L [id number] ####Electromedical Equipment Technician: RUTH ANN BRAGG ([phone])[facility] [place] (SBHLAB)[address] NEUTROPHILS ABSOLUTE 4.9 10*3/uL Normal 1.8-7.5 [facility] Comment on above: Performed By: #### L [id number] ####Electromedical Equipment Technician: RUTH ANN BRAGG ([id number])[facility] [place] (SBHLAB)[address] Neutrophils/100 WBC (Bld) 73.4 % Normal 38.0-82.0 [facility] Comment on above: Performed By: #### L [id number] ####Electromedical Equipment Technician: RUTH ANN BRAGG ([phone])[facility] [place] (SBHLAB)[address] NRBC 0.0 /100 WBCs Normal 0.0-2.0 [facility] Comment on above: Performed By: #### L [id number] ####Electromedical Equipment Technician: RUTH ANN BRAGG ([id number])[facility] [place] (SBHLAB)[address] Platelet mean volume (Bld) [Entitic vol] 11.2 fL Normal 9.0-12.7 [facility] Comment on above: Performed By: #### L [id number] ####Electromedical Equipment Technician: RUTH ANN BRAGG ([id number])[facility] [place] (SBHLAB)[address] Platelets (Bld) [#/Vol] 106 10*3/uL Low 140-440 [facility] Comment on above: Performed By: #### L [id number] ####Electromedical Equipment Technician: RUTH ANN BRAGG ([id number])[facility]ITALRyan [facility]OMERY[facility] CAN[facility] CENTEROmi (SBHLAB)[address] RBC (Bld) [#/Vol] 2.61 10*6/uL Low 3.80-5.20 [facility] Comment on above: Performed By: #### L [id number] ####Electromedical Equipment Technician: RUTH ANN BRAGG ([id number])[facility]ITAL[facility] ([facility])[address] [place] [address] WBC (Bld) [#/Vol] 6.6 10*3/uL Normal 3.6-10.7 [facility] Comment on above: Performed By: #### L [id number] ####Electromedical Equipment Technician: RUTH ANN BRAGG ([phone])[facility]ITAL[facility] [place] (HLAB)[address] [place] [address] CBC panel Auto (Bld)on 06-26 Erythrocyte distribution width (RBC) [Ratio] 15 % 11.5 - 15.0 % [facility] Hematocrit (Bld) [Volume fraction] 27.2 % Low 35.0 - 47.0 % [facility] Hemoglobin (Bld) [Mass/Vol] 8.5 g/dL Low 11.7 - 16.0 g/dL [facility] Interpretation and review of laboratory results Abnormal [facility] MCH (RBC) [Entitic mass] 31.5 pg 26. 0 - 34.0 pg [facility] MCHC (RBC) [Mass/Vol] 31.3 % 30.5 - 36.0 % [facility] MCV (RBC) [Entitic vol] 100.7 fL High 77.0 - 99.0 fL [facility] Platelet mean volume (Bld) [Entitic vol] 11.1 fL 9.0 - 12.7 fL [facility] Platelets (Bld) [#/Vol] 127 10*3/uL Low 140 - 440 10*3/uL [facility] RBC (Bld) [#/Vol] 2.7 10*6/uL Low 3.80 - 5.2 0 10*6/uL [facility] WBC (Bld) [#/Vol] 7.9 10*3/uL 3.6 - 10.7 10*3/uL [facility] COMPREHENSIVE METABOLIC PANE Smith 06-26-2024 Albumin [Mass/Vol] 3.0 g/dL Low 3.5-5.0 [facility] Comment on above: Performed By: #### L [id number] ####Electromedical Equipment Technician: RUTH ANN BRAGG ([id number])[facility] [place] (SBHLAB)[address] ALP [Catalytic activity/Vol] 74 U/L Normal 38-126 [facility] Comment on above: Performed By: #### L AB17 ####Electromedical Equipment Technician: RUTH ANN BRAGG ([phone])[facility] (SBHLAB)[address] ALT [Catalytic activity/Vol] 21 U/L Normal 0-34 [facility] Comment on above: Performed By: #### L AB17 ####Electromedical Equipment Technician: RUTH ANN BRAGG ([phone])[facility] (SBHLAB)[address] Anion gap [Moles/Vol] 7 mmol/L Normal 3-13 [facility] Comment on above: Performed By: #### L AB17 ####Electromedical Equipment Technician: RUTH ANN BRAGG ([phone])[facility] [place] (SBHLAB)155 [place] [address] [place] AST [Catalytic activity/Vol] 44 U/L Normal 15-46 [facility] Comment on above: Performed By: #### L AB17 ####Electromedical Equipment Technician: RUTH ANN BRAGG ([id number])[facility] [place] (SBHLAB)[address] Bilirubin [Mass/Vol] 0.8 mg/dL Normal 0.2-1.3 [facility] Comment on above: Performed By: #### L AB17 ####Electromedical Equipment Technician: RUTH ANN BRAGG ([phone])[facility] [place] (SBHLAB)[address] Calcium [Mass/Vol] 9.4 mg/dL Normal 8.4-10.4 [facility] Comment on above: Performed By: #### L AB17 ####Electromedical Equipment Technician: RUTH ANN BRAGG ([phone])[facility] [place] (SBHLAB)[address] Chloride [Moles/Vol] 117 mmol/L High 98-107 [facility] Comment on above: Performed By: #### L AB17 ####Electromedical Equipment Technician: RUTH ANN BRAGG ([phone])[facility] [place] (SBHLAB)[address] CO2 [Moles/Vol] 18 mmol/L Low 22-30 [facility] Comment on above: Performed By: #### L AB17 ####Electromedical Equipment Technician: RUTH ANN BRAGG ([id number])[facility] [place] (SBHLAB)[address] Creatinine [Mass/Vol] 1.34 mg/dL High 0.52-1.04 [facility] Comment on above: Performed By: #### L AB17 ####Electromedical Equipment Technician: RUTH ANN BRAGG ([phone])[facility] [place] (SBHLAB)[address] GLOMERULAR FILTRATION RATE ML/MIN/1.73 SQ M.PREDICTED 40.7 mL/min/1.73m*2 Low >60.0 [facility] Comment on above: Result Comment: Calc ulation based on the Chronic Kidney Disease Epidemiology Collaboration (CKD-EPI) equation refit without adjustment for race Performed By: #### L AB17 ####Electromedical Equipment Technician: RUTH ANN BRAGG ([id number])[facility] [place] (SBHLAB)[address] [place] [address] [place] Glucose [Mass/Vol] 156 mg/dL High 70-100 [facility] Comment on above: Performed By: #### L AB17 ####Electromedical Equipment Technician: RUTH ANN BRAGG ([phone])[facility] CENTEROmi (SBHLAB)[address] Potassium [Moles/Vol] 3.8 mmol/L Normal 3.5-5.1 [facility] Comment on above: Performed By: #### L AB17 ####Electromedical Equipment Technician: RUTH ANN BRAGG ([phone])[facility] (SBHLAB)[address] Protein [Mass/Vol] 6.1 g/dL Low 6.3-8.2 [facility] Comment on above: Performed By: #### L AB17 ####Electromedical Equipment Technician: RUTH ANN BRAGG ([phone])[facility] (SBHLAB)[address] Sodium [Moles/Vol] 142 mmol/L Normal 135-145 [facility] Comment on above: Performed By: #### L AB17 ####Electromedical Equipment Technician: RUTH ANN BRAGG ([id number])[facility] [place] (SBHLAB)[address] Urea nitrogen [Mass/Vol] 42 mg/dL High 7-17 [facility] Comment on above: Performed By: #### L AB17 ####Electromedical Equipment Technician: RUTH ANN BRAGG ([phone])[facility] (SBHLAB)[address] Albumin [Mass/Vol] 3.2 g/dL Low 3.5-5.0 [facility] Comment on above: Performed By: #### L AB17 ####Electromedical Equipment Technician: RUTH ANN BRAGG ([phone])[facility] (SBHLAB)[address] ALP [Catalytic activity/Vol] 74 U/L Normal 38-126 [facility] Comment on above: Performed By: #### L AB17 ####Electromedical Equipment Technician: RUTH ANN BRAGG ([id number])[facility] [place] (SBHLAB)[address] ALT [Catalytic activity/Vol] 21 U/L Normal 0-34 [facility] Comment on above: Performed By: #### L AB17 ####Electromedical Equipment Technician: RUTH ANN BRAGG ([phone])[facility] [place] (SBHLAB)[address] Anion gap [Moles/Vol] 7 mmol/L Normal 3-13 [facility] Comment on above: Performed By: #### L AB17 ####Electromedical Equipment Technician: RUTH ANN BRAGG ([phone])[facility] [place] (SBHLAB)[address] AST [Catalytic activity/Vol] 43 U/L Normal 15-46 [facility] Comment on above: Performed By: #### L AB17 ####Electromedical Equipment Technician: RUTH ANN BRAGG ([phone])[facility] [place] (SBHLAB)[address] Bilirubin [Mass/Vol] 0.8 mg/dL Normal 0.2-1.3 [facility] Comment on above: Performed By: #### L AB17 ####Electromedical Equipment Technician: RUTH ANN BRAGG ([phone])[facility] [place] (SBHLAB)[address] Calcium [Mass/Vol] 9.4 mg/dL Normal 8.4-10.4 [facility] Comment on above: Performed By: #### L AB17 ####Electromedical Equipment Technician: RUTH ANN BRAGG ([phone])[facility] [place] (SBHLAB)[address] [place] [address] [place] Chloride [Moles/Vol] 116 mmol/L High 98-107 [facility] Comment on above: Performed By: #### L AB17 ####Electromedical Equipment Technician: RUTH ANN BRAGG ([phone])[facility] [place] (SBHLAB)[address] CO2 [Moles/Vol] 19 mmol/L Low 22-30 [facility] Comment on above: Performed By: #### L AB17 ####Electromedical Equipment Technician: RUTH ANN BRAGG ([phone])[facility]ITALRyan SANDERSOmi (SBHLAB)[address] Creatinine [Mass/Vol] 1.39 mg/dL High 0.52-1.04 [facility] Comment on above: Performed By: #### L AB17 ####Electromedical Equipment Technician: RUTH ANN BRAGG ([phone])[facility]ITAL[facility] (SBHLAB)[address] GLOMERULAR FILTRATION RATE ML/MIN/1.73 SQ M.PREDICTED 38.9 mL/min/1.73m*2 Low >60.0 [facility] Comment on above: Result Comment: Calc ulation based on the Chronic Kidney Disease Epidemiology Collaboration (CKD-EPI) equation refit without adjustment for race Performed By: #### L AB17 ####Electromedical Equipment Technician: RUTH ANN BRAGG ([id number])[facility]ITAL[facility]ERYMARGARETN (SBHLAB)[address] Glucose [Mass/Vol] 155 mg/dL High 70-100 [facility] Comment on above: Performed By: #### L AB17 ####Electromedical Equipment Technician: RUTH ANN BRAGG ([phone])[facility]ITAL[facility] [place] (SBHLAB)[address] Potassium [Moles/Vol] 3.9 mmol/L Normal 3.5-5.1 [facility] Comment on above: Performed By: #### L AB17 ####Electromedical Equipment Technician: RUTH ANN BRAGG ([phone])[facility] (SBHLAB)[address] Protein [Mass/Vol] 6.3 g/dL Normal 6.3-8.2 [facility] Comment on above: Performed By: #### L AB17 ####Electromedical Equipment Technician: RUTH ANN BRAGG ([phone])[facility]ITAL[facility] [place] (SBHLAB)[address] Sodium [Moles/Vol] 142 mmol/L Normal 135-145 [facility] Comment on above: Performed By: #### L AB17 ####Electromedical Equipment Technician: RUTH ANN BRAGG ([phone])[facility] [place] (SBHLAB)[address] Urea nitrogen [Mass/Vol] 42 mg/dL High 7-17 [facility] Comment on above: Performed By: #### L AB17 ####Electromedical Equipment Technician: RUTH ANN BRAGG ([phone])[facility] [place] (SBHLAB)[address] ABDOMEN PELVIS WO IV CONT RASTon 06-26-2024 CT ABDOMEN PELVIS WO IV CONTRAST Normal [facility] CT Abdomen and Pelvis WO con traston 06-26-2024 [facility] Radiology Study observation (narrative[facility] Abdomen and Pelvis WO con trastOrdered By: Lynda Garcia on 06-26-2024 [facility] Work Phone: CT HEAD WO IV CONTRASTon CT HEAD WO IV CONTRAST Normal [facility] CT Head WO contraston 2023 [facility] Radiology Study observation (narrative) Marya Rosas alth CT Head WO contrastOrdered B y: Tracey Fernando on 06-26-2024 [facility] Work Phone: Comprehensive metabolic 1998 panelon 06-26-2024 Albumin [Mass/Vol] 3 g/dL Low 3.5 - 5.0 g/dL [facility] ALP [Catalytic activity/Vol] 74 U/L 38 - 126 U/L [facility] ALT [Catalytic activity/Vol] 21 U/L 0 - 34 U/L [facility] Anion gap [Moles/Vol] 7 mmol/L 3 - 13 mmol/L [facility] AST [Catalytic activity/Vol] 44 U/L 15 - 46 U/L [facility] Bilirubin [Mass/Vol] 0.8 mg/dL 0.2 - 1 .3 mg/dL [facility] Calcium [Mass/Vol] 9.4 mg/dL 8.4 - 10. 4 mg/dL [facility] Chloride [Moles/Vol] 117 mmol/L High 98 - 10 7 mmol/L [facility] CO2 [Moles/Vol] 18 mmol/L Low 22 - 30 mmol/L [facility] Creatinine [Mass/Vol] 1.34 mg/dL High 0.52 - 1.04 mg/dL [facility] GFR/1.73 sq M.predicted (S/P/Bld) [Vol rate/Area] 40.7 mL/min Low - PINF [facility] Glucose [Mass/Vol] 156 mg/dL High 70 - 100 mg/dL [facility] Interpretation and review of laboratory results Abnormal [facility] th Potassium [Moles/Vol] 3.8 mmol/L 3.5 - 5.1 mmol/L [facility] Protein [Mass/Vol] 6.1 g/dL Low 6.3 - 8.2 g/dL [facility] Sodium [Moles/Vol] 142 mmol/L 135 - 145 mmol/L [facility] Urea nitrogen [Mass/Vol] 42 mg/dL High 7 - 17 mg/dL [facility] Albumin [Mass/Vol] 3.2 g/dL Low 3.5 - 5.0 g/dL [facility] ALP [Catalytic activity/Vol] 74 U/L 38 - 126 U/L [facility] ALT [Catalytic activity/Vol] 21 U/L 0 - 34 U/L [facility] Anion gap [Moles/Vol] 7 mmol/L 3 - 13 mmol/L [facility] AST [Catalytic activity/Vol] 43 U/L 15 - 46 U/L [facility] Bilirubin [Mass/Vol] 0.8 mg/dL 0.2 - 1 .3 mg/dL [facility] Calcium [Mass/Vol] 9.4 mg/dL 8.4 - 10. 4 mg/dL [facility] Chloride [Moles/Vol] 116 mmol/L High 98 - 10 7 mmol/L [facility] CO2 [Moles/Vol] 19 mmol/L Low 22 - 30 mmol/L [facility] Creatinine [Mass/Vol] 1.39 mg/dL High 0.52 - 1.04 mg/dL [facility] GFR/1.73 sq M.predicted (S/P/Bld) [Vol rate/Area] 38.9 mL/min Low - PINF [facility] Glucose [Mass/Vol] 155 mg/dL High 70 - 100 mg/dL [facility] Interpretation and review of laboratory results Abnormal [facility] Potassium [Moles/Vol] 3.9 mmol/L 3.5 - 5.1 mmol/L [facility] Protein [Mass/Vol] 6.3 g/dL 6.3 - 8.2 g/dL [facility] Sodium [Moles/Vol] 142 mmol/L 135 - 145 mmol/L [facility] Urea nitrogen [Mass/Vol] 42 mg/dL High 7 - 17 mg/dL [facility] Consulton 06-26-2024 Consult Normal [facility] Consult Normal [facility] HEMOGLOBIN AND HEMATOCRIT, B LOODon 06-26-2024 Hematocrit (Bld) [Volume fraction] 24.6 % Low 35.0-47.0 [facility] Comment on above: Performed By: #### L [id number] ####Electromedical Equipment Technician: RUTH ANN BRAGG ([phone])[facility] ([facility])[address] [place] [address] Hemoglobin (Bld) [Mass/Vol] 7.9 g/dL Low 11.7-16.0 [facility] Comment on above: Performed By: #### L [id number] ####Electromedical Equipment Technician: RUTH ANN BRAGG ([phone])[facility] ([facility])[address] [place] [address] Hematocrit (Bld) [Volume fraction] 25.7 % Low 35.0-47.0 [facility] Comment on above: Performed By: #### L [id number] ####Electromedical Equipment Technician: RUTH ANN BRAGG ([phone])[facility] ([facility])[address] [place] [address] Hemoglobin (Bld) [Mass/Vol] 8.1 g/dL Low 11.7-16.0 [facility] Comment on above: Performed By: #### L [id number] ####Electromedical Equipment Technician: RUTH ANN BRAGG ([id number])[facility] ([facility])[address] Hematocrit (Bld) [Volume fraction] 27.2 % Low 35.0-47.0 [facility] Comment on above: Performed By: #### L [id number] ####Electromedical Equipment Technician: RUTH ANN BRAGG ([phone])[facility] ([facility])[address] Hemoglobin (Bld) [Mass/Vol] 8.5 g/dL Low 11.7-16.0 [facility] Comment on above: Performed By: #### L [id number] ####Electromedical Equipment Technician: RUTH ANN BRAGG ([phone])[facility] ([facility])[address] [place] [address] Hemoglobin (Bld) [Mass/Vol]o n 06-26-2024 Hematocrit (Bld) [Volume fraction] 24.6 % Low 35.0 - 47.0 % [facility] Interpretation and review of laboratory results Abnormal [facility] Hematocrit (Bld) [Volume fraction] 25.7 % Low 35.0 - 47.0 % [facility] Interpretation and review of laboratory results Abnormal [facility] Hematocrit (Bld) [Volume fraction] 27.2 % Low 35.0 - 47.0 % [facility] Interpretation and review of laboratory results Abnormal [facility] Laboratory - Chemistry and C hemistry - challengeon 06-26-2024 Glucose [Mass/Vol] 191 mg/dL High 70 - 100 mg/dL [facility] Glucose [Mass/Vol] 189 mg/dL High 70 - 100 mg/dL [facility] Ammonia (P) [Moles/Vol] 134 umol/L High 9 - 30 umol/L [facility] Glucose [Mass/Vol] 169 mg/dL High 70 - 100 mg/dL [facility] Troponin I.cardiac [Mass/Vol] 0.042 ng/mL High NINF - 0.034 ng/mL [facility] Laboratory - Chemistry and C hemistry - challengeOrdered By: Sara Cano on 06-26-2024 Base excess Calc (Bld) [Moles/Vol] -2.4000 mmol/L -3.0 - 3.0 mmol/L [facility] CO2 (Bld) [Partial pressure] 29.1 mm[Hg] Low [facility] CO2 [Moles/Vol] 21.5 mmol/L Low 22.0 - 28.0 mmol/L [facility] HCO3 (Bld) [Moles/Vol] 20.7 mmol/L Low 21.0 - 27.0 mmol/L [facility] Oxygen (Bld) [Partial pressure] 97 mm[Hg] [facility] pH (Bld) 7.469 [pH] High 7.350 - 7.450 [facility] Laboratory - Hematology and Cell countson 06-26-2024 Hemoglobin (Bld) [Mass/Vol] 7.9 g/dL Low 11.7 - 16.0 g/dL [facility] Hemoglobin (Bld) [Mass/Vol] 8.1 g/dL Low 11.7 - 16.0 g/dL [facility] Hemoglobin (Bld) [Mass/Vol] 8.5 g/dL Low 11.7 - 16.0 g/dL [facility] Laboratory - Hematology and Cell countsOrdered By: Sara Cano on 06-26-2024 Hemoglobin (Bld) [Mass/Vol] 8.6 g/dL Low Screen only [facility] Lower GI hemoglobin spec 1 I A Ql (Stl)Ordered By: Ovidio Carson on 06-26-2024 Fecal occult blood Positive Abnormal Negative [facility] Interpretation and review of laboratory results Abnormal [facility] No Panel Informationon 06-26 Blood Expiration Date [id number] S [facility] Crossmatch interpretation COMP [facility] Dispense Status Transfused [facility] Product Blood Type 5100 [facility] PRODUCT CODE [id number] [facility] ABO O [facility] Unit Number [id number]-* [facility] alth Unit RH Positive [facility] Unit Volume 300 mL [facility] Interpretation and review of laboratory results Abnormal [facility] Interpretation and review of laboratory results Abnormal [facility] Interpretation and review of laboratory results Abnormal [facility] Interpretation and review of laboratory results Abnormal [facility] No Panel InformationOrdered By: Sara Cano on 06-26-2024 Interpretation and review of laboratory results [facility]normal [facility] Room Air Marya Rosas alth [facility] Progress Noteon 06-26-[address] [facility] Progress Note Normal [facility] Progress Note Normal [facility] Progress Note Normal [facility] Progress Note Normal [facility] Troponin I.cardiac [Mass/Vol ]on 06-26-2024 Interpretation and review of laboratory results Abnormal [facility] th [facility] XR ABDOMEN 1 VIEWon 06-26-20 XR ABDOMEN 1 VIEW Normal [facility] ealth System [facility] XR Abdomen Single viewon [facility] RADIOLOGY [facility] Radiology Study observation (narrative) Marya Rosas alth XR CHEST 1 VIEWon 06-26-2024 XR CHEST 1 VIEW [facility] XR Chest Single viewon 06-26 [facility] SYSTEM [facility] RADI[facility] Radiology Study observation (narrative) Marya Rosas alth CBC W Auto Differential pane l (Bld)on 06-25-2024 Basophils (Bld) [#/Vol] 0.1 10*3/uL 0.0 - 0.2 10*3/uL [facility] Basophils/100 WBC (Bld) 0.9 % 0.0 - 2.0 % [facility] Eosinophils (Bld) [#/Vol] 0.1 10*3/uL 0. 0 - 0.5 10*3/uL [facility] Eosinophils/100 WBC (Bld) 2 % 0.0 - 6.0 % [facility] Erythrocyte distribution width (RBC) [Ratio] 14.6 % 11.5 - 15.0 % [facility] Hematocrit (Bld) [Volume fraction] 27.7 % Low 35.0 - 47.0 % [facility] Hemoglobin (Bld) [Mass/Vol] 9 g/dL Low 11.7 - 16.0 g/dL [facility] Immature granulocytes (Bld) [#/Vol] 0 10*3/uL NINF - 0.1 10*3/uL [facility] Immature granulocytes/100 WBC (Bld) 0.2 % 0.0 - 2.0 % [facility] Interpretation and review of laboratory results Abnormal [facility] th Lymphocytes (Bld) [#/Vol] 0.9 10*3/uL Low 1. 0 - 4.3 10*3/uL [facility] Lymphocytes/100 WBC (Bld) 15.8 % 15 .0 - 45.0 % [facility] MCH (RBC) [Entitic mass] 31.1 pg 26. 0 - 34.0 pg [facility] MCHC (RBC) [Mass/Vol] 32.5 % 30.5 - 36.0 % [facility] MCV (RBC) [Entitic vol] 95.8 fL 77.0 - 99.0 fL [facility] Monocytes (Bld) [#/Vol] 0.9 10*3/uL 0.0 - 0.9 10*3/uL [facility] Monocytes/100 WBC (Bld) 15.4 % High 5.0 - 13.0 % [facility] Neutrophils (Bld) [#/Vol] 3.6 10*3/uL 1. 8 - 7.5 10*3/uL [facility] Neutrophils/100 WBC (Bld) 65.7 % 38 .0 - 82.0 % [facility] Nucleated RBC/100 WBC (Bld) [Ratio] 0 % [facility] Platelet mean volume (Bld) [Entitic vol] 11.2 fL 9.0 - 12.7 fL [facility] Platelets (Bld) [#/Vol] 119 10*3/uL Low 140 - 440 10*3/uL [facility] RBC (Bld) [#/Vol] 2.89 10*6/uL Low 3.80 - 5.2 0 10*6/uL [facility] WBC (Bld) [#/Vol] 5.5 10*3/uL 3.6 - 10.7 10*3/uL [facility] CBC WITH AUTO DIFFERENTIALon 06-25-2024 Basophils (Bld) [#/Vol] 0.1 10*3/uL Normal 0.0-0.2 [facility] Comment on above: Performed By: #### L [id number] ####Electromedical Equipment Technician: RUTH ANN BRAGG ([phone])[facility] [place] ([facility])[address] [place] [address] Basophils/100 WBC (Bld) 0.9 % Normal 0.0-2.0 [facility] Comment on above: Performed By: #### L [id number] ####Electromedical Equipment Technician: RUTH ANN BRAGG ([phone])[facility] ([facility])[address] Eosinophils (Bld) [#/Vol] 0.1 10*3/uL Normal 0.0-0.5 [facility] Comment on above: Performed By: #### L [id number] ####Electromedical Equipment Technician: RUTH ANN BRAGG ([phone])[facility] [place] ([facility])[address] Eosinophils/100 WBC (Bld) 2.0 % Normal 0.0-6.0 [facility] Comment on above: Performed By: #### L [id number] ####Electromedical Equipment Technician: RUTH ANN BRAGG ([id number])[facility] [place] ([facility])[address] Erythrocyte distribution width (RBC) [Ratio] 14.6 % Normal 11.5-15.0 [facility] Comment on above: Performed By: #### L [id number] ####Electromedical Equipment Technician: RUTH ANN BRAGG ([phone])[facility] [place] ([facility])[address] [place] [address] Hematocrit (Bld) [Volume fraction] 27.7 % Low 35.0-47.0 [facility] Comment on above: Performed By: #### L [id number] ####Electromedical Equipment Technician: RUTH ANN BRAGG ([phone])[facility] [place] ([facility])[address] Hemoglobin (Bld) [Mass/Vol] 9.0 g/dL Low 11.7-16.0 [facility] Comment on above: Performed By: #### L [id number] ####Electromedical Equipment Technician: RUTH ANN BRAGG ([phone])[facility] [place] ([facility])[address] IMMATURE GRANS % 0.2 % Normal 0.0-2.0 [facility] Comment on above: Performed By: #### L [id number] ####Electromedical Equipment Technician: RUTH ANN HERRONSHELTON ([phone])[facility] [place] ([facility])[address] IMMATURE GRANS ABSOLUTE 0.0 10*3/uL Normal <0.1 [facility] Comment on above: Performed By: #### L [id number] ####Electromedical Equipment Technician: RUTH ANN BRAGG ([phone])[facility] [place] ([facility])[address] Lymphocytes (Bld) [#/Vol] 0.9 10*3/uL Low 1.0-4.3 [facility] Comment on above: Performed By: #### L [id number] ####Electromedical Equipment Technician: RUTH ANN BARGG ([phone])[facility] ([facility])[address] Lymphocytes/100 WBC (Bld) 15.8 % Normal 15.0-45.0 [facility] Comment on above: Performed By: #### L [id number] ####Electromedical Equipment Technician: RUTH ANN BRAGG ([phone])[facility] [place] ([facility])[address] MCH (RBC) [Entitic mass] 31.1 pg Normal 26.0-34.0 [facility] Comment on above: Performed By: #### L [id number] ####Electromedical Equipment Technician: RUTH ANN BRAGG ([phone])[facility] [place] ([facility])[address] MCHC 32.5 % Normal 30.5-36.0 [facility] Comment on above: Performed By: #### L [id number] ####Electromedical Equipment Technician: RUTH ANN BRAGG ([phone])[facility] [place] ([facility])[address] MCV (RBC) [Entitic vol] 95.8 fL Normal 77.0-99.0 S [facility] Comment on above: Performed By: #### L [id number] ####Electromedical Equipment Technician: RUTH ANN BRAGG ([phone])[facility] ([facility])[address] Monocytes (Bld) [#/Vol] 0.9 10*3/uL Normal 0.0-0.9 [facility] Comment on above: Performed By: #### L [id number] ####Electromedical Equipment Technician: RUTH ANN BRAGG ([id number])[facility] [place] ([facility])[address] Monocytes/100 WBC (Bld) 15.4 % High 5.0-13.0 S [facility] Comment on above: Performed By: #### L [id number] ####Electromedical Equipment Technician: RUTH ANN BRAGG ([id number])[facility] [place] ([facility])[address] NEUTROPHILS ABSOLUTE 3.6 10*3/uL Normal 1.8-7.5 [facility] Comment on above: Performed By: #### L [id number] ####Electromedical Equipment Technician: RUTH ANN BRAGG ([phone])[facility] [place] ([facility])[address] Neutrophils/100 WBC (Bld) 65.7 % Normal 38.0-82.0 [facility] Comment on above: Performed By: #### L [id number] ####Electromedical Equipment Technician: RUTH ANN BRAGG ([id number])[facility] [place] ([facility])[address] NRBC 0.0 /100 WBCs Normal 0.0-2.0 [facility] Comment on above: Performed By: #### L [id number] ####Electromedical Equipment Technician: RUTH ANN BRAGG ([phone])[facility] [place] ([facility])[address] Platelet mean volume (Bld) [Entitic vol] 11.2 fL Normal 9.0-12.7 [facility] Comment on above: Performed By: #### L [id number] ####Electromedical Equipment Technician: RUTH ANN BRAGG ([id number])[facility] ([facility])[address] Platelets (Bld) [#/Vol] 119 10*3/uL Low 140-440 [facility] Comment on above: Performed By: #### L [id number] ####Electromedical Equipment Technician: RUTH ANN BRAGG ([phone])[facility] [place] ([facility])[address] RBC (Bld) [#/Vol] 2.89 10*6/uL Low 3.80-5.20 [facility] Comment on above: Performed By: #### L [id number] ####Electromedical Equipment Technician: RUTH ANN BRAGG ([phone])[facility] [place] ([facility])[address] WBC (Bld) [#/Vol] 5.5 10*3/uL Normal 3.6-10.7 [facility] Comment on above: Performed By: #### L [id number] ####Electromedical Equipment Technician: RUTH ANN BRAGG ([phone])[facility] ([facility])[address] COMPLETE URINALYSISon 2023 BACTERIA (#/HPF) IN URINE Moderate Abnormal Negative [facility] Comment on above: Performed By: #### L [id number] ####Electromedical Equipment Technician: RUTH ANN BRAGG ([phone])[facility] [place] ([facility])[address] BILIRUBIN, TOTAL PRESENCE IN URINE Negative Normal Negative [facility] Comment on above: Performed By: #### L [id number] ####Electromedical Equipment Technician: RUTH ANN BRAGG ([id number])[facility] [place] ([facility])[address] Clarity (U) Clear Normal Clear [facility] Comment on above: Performed By: #### L [id number] ####Electromedical Equipment Technician: RUTH ANN BRAGG ([id number])[facility] [place] ([facility])[address] Color (U) Light Yellow Normal Lt. Yellow [facility] Comment on above: Performed By: #### L [id number] ####Electromedical Equipment Technician: RUTH ANN BRAGG ([phone])[facility] ([facility])[address] GLUCOSE (MG/DL) IN URINE Normal Normal Nor mal (<70) [facility] Comment on above: Performed By: #### L [id number] ####Electromedical Equipment Technician: RUTH ANN BRAGG ([id number])[facility] ([facility])[address] HEMOGLOBIN PRESENCE IN URINE Negative Normal Negative [facility] Comment on above: Performed By: #### L [id number] ####Electromedical Equipment Technician: RUTH ANN BRAGG ([phone])[facility] ([facility])[address] Ketones Ql (U) Negative Normal Negative [facility] Comment on above: Performed By: #### L [id number] ####Electromedical Equipment Technician: RUTH ANN BRAGG ([id number])[facility] ([facility])[address] LEUKOCYTE ESTERASE PRESENCE IN URINE BY TEST STRIP 75 Yomi/uL Abnormal Negative [facility] Comment on above: Performed By: #### L [id number] ####Electromedical Equipment Technician: RUTH ANN BRAGG ([phone])[facility] [place] ([facility])[address] [place] [address] [place] MUCUS (#/LPF) IN URINE SEDIMENT Few Normal Negative [facility] Comment on above: Performed By: #### L [id number] ####Electromedical Equipment Technician: RUTH ANN BRAGG ([phone])[facility] [place] ([facility])[address] NITRITE PRESENCE IN URINE Negative Normal Negative [facility] Comment on above: Performed By: #### L [id number] ####Electromedical Equipment Technician: RUTH ANN BRAGG ([id number])[facility] ([facility])[address] pH (U) 5.0 [pH] Normal 5.0-8.0 [facility] Comment on above: Performed By: #### L [id number] ####Electromedical Equipment Technician: RUTH ANN BRAGG ([id number])[facility] ([facility])[address] Protein (U) [Mass/Vol] 30 mg/dL Abnormal Negative [facility] Comment on above: Performed By: #### L [id number] ####Electromedical Equipment Technician: RUTH ANN BRAGG ([phone])[facility] [place] [address] [place] RBC (#/HPF) IN URINE SEDIMENT 3-5 Abnormal 0-2 [facility] Comment on above: Performed By: #### L [id number] ####Electromedical Equipment Technician: RUTH ANN BRAGG ([id number])[facility] ([facility])[address] [place] [address] Specific gravity (U) [Rel density] 1.018 Normal 1.005-1.030 [facility] Comment on above: Performed By: #### L [id number] ####Electromedical Equipment Technician: RUTH ANN BRAGG ([phone])[facility] ([facility])[address] SQUAMOUS EPITHELIAL CELLS (#/HPF) IN URINE SEDIMENT 0-2 Normal 3-5 [facility] Comment on above: Performed By: #### L [id number] ####Electromedical Equipment Technician: RUTH ANN BRAGG ([phone])[facility] ([facility])[address] [place] [address] UROBILINOGEN (MG/DL) IN URINE Normal Normal Normal (0-1) [facility] Comment on above: Performed By: #### L [id number] ####Electromedical Equipment Technician: RUTH ANN OBREGONDavidSHELTON ([id number])[facility] ([facility])[address] WBC (LEUKOCYTE) (#/HPF) IN URINE SEDIMENT 11-25 Abnormal 0-5 [facility] Comment on above: Performed By: #### L [id number] ####Electromedical Equipment Technician: RUTH ANN HERRONSHELTON ([id number])[facility] ([facility])[address] WBC (LEUKOCYTE) CLUMPS (#/HPF) IN URINE SEDIMENT Rare Abnormal Negative [facility] Comment on above: Performed By: #### L [id number] ####Electromedical Equipment Technician: RUTH ANN OBREGONWILTON ([phone])[facility] [place] ([facility])[address] YEAST (#/HPF) IN URINE Few Abnormal Negative [facility] Comment on above: Performed By: #### L [id number] ####Electromedical Equipment Technician: RUTH ANN OBREGONWILTON ([id number])[facility] [place] ([facility])[address] COMPREHENSIVE METABOLIC PANE Smith 06-25-2024 Albumin [Mass/Vol] 3.4 g/dL Low 3.5-5.0 [facility] Comment on above: Performed By: #### L [id number], LAB17 ####Electromedical Equipment Technician: RUTH ANN BRAGG ([phone])[facility] [place] ([facility])[address] ALP [Catalytic activity/Vol] 89 U/L Normal 38-126 [facility] Comment on above: Performed By: #### L [id number], LAB17 ####Electromedical Equipment Technician: RUTH ANN BRAGG ([id number])[facility] [place] ([facility])[address] ALT [Catalytic activity/Vol] 21 U/L Normal 0-34 [facility] Comment on above: Performed By: #### L [id number], LAB17 ####Electromedical Equipment Technician: RUTH ANN BRAGG ([id number])[facility] ([facility])[address] Anion gap [Moles/Vol] 7 mmol/L Normal 3-13 [facility] Comment on above: Performed By: #### L [id number], LAB17 ####Electromedical Equipment Technician: RUTH ANN BRAGG ([phone])[facility] ([facility])[address] AST [Catalytic activity/Vol] 45 U/L Normal 15-46 [facility] Comment on above: Performed By: #### L [id number], LAB17 ####Electromedical Equipment Technician: RUTH ANN BRAGG ([id number])[facility] ([facility])[address] Bilirubin [Mass/Vol] 0.9 mg/dL Normal 0.2-1.3 [facility] Comment on above: Performed By: #### L [id number], LAB17 ####Electromedical Equipment Technician: RUTH ANN BRAGG ([phone])[facility] ([facility])[address] Calcium [Mass/Vol] 9.7 mg/dL Normal 8.4-10.4 [facility] Comment on above: Performed By: #### L [id number], LAB17 ####Electromedical Equipment Technician: RUTH ANN BRAGG ([phone])[facility] ([facility])[address] [place] [address] [place] Chloride [Moles/Vol] 114 mmol/L High 98-107 [facility] Comment on above: Performed By: #### L [id number], LAB17 ####Electromedical Equipment Technician: RUTH ANN BRAGG ([id number])[facility] ([facility])[address] CO2 [Moles/Vol] 21 mmol/L Low 22-30 [facility] Comment on above: Performed By: #### L [id number], LAB17 ####Electromedical Equipment Technician: RUTH ANN BRAGG ([phone])[facility] [place] ([facility])[address] Creatinine [Mass/Vol] 1.40 mg/dL High 0.52-1.04 [facility] Comment on above: Performed By: #### L [id number], LAB17 ####Electromedical Equipment Technician: RUTH ANN BRAGG ([id number])[facility] [place] ([facility])[address] GLOMERULAR FILTRATION RATE ML/MIN/1.73 SQ M.PREDICTED 38.6 mL/min/1.73m*2 Low >60.0 [facility] Comment on above: Result Comment: Calc ulation based on the Chronic Kidney Disease Epidemiology Collaboration (CKD-EPI) equation refit without adjustment for race Performed By: #### L [id number], LAB17 ####Electromedical Equipment Technician: RUTH ANN BRAGG ([id number])[facility] [place] ([facility])[address] Glucose [Mass/Vol] 147 mg/dL High 70-100 [facility] Comment on above: Performed By: #### L [id number], LAB17 ####Electromedical Equipment Technician: RUTH ANN BRAGG ([id number])[facility] [place] ([facility])[address] Potassium [Moles/Vol] 3.6 mmol/L Normal 3.5-5.1 [facility] Comment on above: Performed By: #### L [id number], LAB17 ####Electromedical Equipment Technician: RUTH ANN BRAGG ([phone])[facility] ([facility])[address] [place] [address] [place] Protein [Mass/Vol] 6.7 g/dL Normal 6.3-8.2 [facility] Comment on above: Performed By: #### L [id number], LAB17 ####Electromedical Equipment Technician: RUTH ANN BRAGG ([id number])[facility] ([facility])[address] Sodium [Moles/Vol] 141 mmol/L Normal 135-145 [facility] Comment on above: Performed By: #### L [id number], LAB17 ####Electromedical Equipment Technician: RUTH ANN BRAGG ([id number])[facility] ([facility])[address] Urea nitrogen [Mass/Vol] 37 mg/dL High 7-17 [facility] Comment on above: Performed By: #### L [id number], LAB17 ####Electromedical Equipment Technician: RUTH ANN BRAGG ([id number])[facility] ([facility])[address] COVID-19, Flu A/B, and RSV C omboon 06-25-2024 Interpretation and review of laboratory results Normal [facility] CT HEAD WO IV CONTRASTon CT HEAD WO IV CONTRAST Normal [facility] CT Head WO contraston 2023 [facility] Radiology Study observation (narrative) [facility] alth CT Head WO contrastOrdered B y: Sue David on 06-25-2024 [facility] Work Phone: Comprehensive metabolic 1998 panelon 06-25-2024 Albumin [Mass/Vol] 3.4 g/dL Low 3.5 - 5.0 g/dL [facility] ALP [Catalytic activity/Vol] 89 U/L 38 - 126 U/L [facility] ALT [Catalytic activity/Vol] 21 U/L 0 - 34 U/L [facility] Anion gap [Moles/Vol] 7 mmol/L 3 - 13 mmol/L [facility] AST [Catalytic activity/Vol] 45 U/L 15 - 46 U/L [facility] Bilirubin [Mass/Vol] 0.9 mg/dL 0.2 - 1 .3 mg/dL [facility] Calcium [Mass/Vol] 9.7 mg/dL 8.4 - 10. 4 mg/dL [facility] Chloride [Moles/Vol] 114 mmol/L High 98 - 10 7 mmol/L [facility] CO2 [Moles/Vol] 21 mmol/L Low 22 - 30 mmol/L [facility] Creatinine [Mass/Vol] 1.4 mg/dL High 0.52 - 1.04 mg/dL [facility] GFR/1.73 sq M.predicted (S/P/Bld) [Vol rate/Area] 38.6 mL/min Low - PINF [facility] Glucose [Mass/Vol] 147 mg/dL High 70 - 100 mg/dL [facility] Interpretation and review of laboratory results Abnormal [facility] Potassium [Moles/Vol] 3.6 mmol/L 3.5 - 5.1 mmol/L [facility] Protein [Mass/Vol] 6.7 g/dL 6.3 - 8.2 g/dL [facility] Sodium [Moles/Vol] 141 mmol/L 135 - 145 mmol/L [facility] Urea nitrogen [Mass/Vol] 37 mg/dL High 7 - 17 mg/dL [facility] ECG 12-LEADon 06-25-2024 ECG 12-LEAD IMPRESSION: Ventricular-paced rhythm No further analysis attempted due to paced rhythm No significant changes compared to previous Electronically Signed On 06-25-2024 18:44:17 EST by Kaiden David Normal [facility] ED Provider Noteon ED Provider Note Normal [facility] Laboratory - Chemistry and C hemistry - challengeon 06-25-2024 Glucose [Mass/Vol] 184 mg/dL High 70 - 100 mg/dL [facility] Troponin I.cardiac [Mass/Vol] 0.043 ng/mL High [facility] - 0.034 ng/mL [facility] Troponin I.cardiac [Mass/Vol] 0.04 ng/mL High [facility] - 0.034 ng/mL [facility] Glucose [Mass/Vol] 140 mg/dL High 70 - 100 mg/dL [facility] Laboratory - Coagulationon 1 08-25-2023 aPTT Coag (PPP) [Time] 25.1 s 20.0 - 30.5 s [facility] INR Coag (PPP) [Relative time] 1.2 {INR} High 0.9 - 1.1 [facility] PT Coag (Bld) [Time] 13.2 s High 9.0 - 1 2.0 s [facility] Laboratory - Microbiology an d Antimicrobial susceptibilityon 06-25-2024 FLUAV RNA HUGO+probe Ql (Resp) Not detected Not Detected [facility] FLUBV RNA HUGO+probe Ql (Resp) Not detected Not Detected [facility] RSV RNA HUGO+probe Ql (Resp) Not detected Not Detected [facility] SARS-CoV-2 (COVID-19) RNA HUGO+probe Ql (Resp) Not detected Not Detected [facility] No Panel Informationon 06-25 Interpretation and review of laboratory results Abnormal [facility] Heart Rate 97 bpm [facility] P [place] 46 degrees [facility] IA Interval 229 ms [facility] QRS [place] -12 degrees [facility] QRSD Interval 140 ms [facility] h QT Interval 399 ms [facility] QTC Interval 507 ms [facility] T Wave [place] 173 degrees [facility] CV EPIPHANY [facility] Interpretation and review of laboratory results Abnormal [facility] Interpretation and review of laboratory results Abnormal [facility] OCCULT BLOOD, STOOLon 2023 OCCULT BLOOD, STOOL FECAL OCCULT, STOOL (A) Reference Positive Negative ORDER COMMENTS: (A) Methodology: Immunoassay Normal [facility] Comment on above: Performed By: #### L [id number] ####Electromedical Equipment Technician: RUTH ANN BRAGG ([id number])[facility] ([facility])[address] [place] [address] PROTIME AND APTTon aPTT Coag (Bld) [Time] 25.1 s Normal 20.0-30.5 [facility] Comment on above: Performed By: #### L [id number] ####Electromedical Equipment Technician: RUTH ANN BRAGG ([id number])[facility] ([facility])[address] [place] [address] INR Coag (PPP) [Relative time] 1.2 {INR} High 0.9-1.1 [facility] Comment on above: Result Comment: Daniel [...] prevent Myocardial Infarction Performed By: #### L [id number] ####Electromedical Equipment Technician: RUTH ANN BRAGG ([id number])[facility] ([facility])[address] PT Coag (PPP) [Time] 13.2 s High 9.0-12.0 [facility] Comment on above: Performed By: #### L [id number] ####Electromedical Equipment Technician: RUTH ANN BRAGG ([id number])[facility] ([facility])[address] SARS-COV-2, FLU A/B, AND RSV COMBOon 06-25-2024 SARS-CoV-2 (COVID-19) RNA HUGO+probe Ql (Unsp spec) Normal [facility] Comment on above: Performed By: #### L [id number] ####Electromedical Equipment Technician: RUTH ANN BRAGG ([id number])[facility] ([facility])[address] [place] [address] [place] TROPONIN Ion 06-25-2024 Troponin I.cardiac [Mass/Vol] 0.042 ng/mL High <0.034 [facility] Comment on above: Result Comment: OLIVIA Mazariegos COMMENTS:Patients with high levels of Biotin oral intake (ie >5 mg/day) may have falsely decreased Troponin levels. Performed By: #### L [id number] ####Electromedical Equipment Technician: RUTH ANN BRAGG ([phone])[facility] ([facility])[address] Troponin I.cardiac [Mass/Vol] 0.043 ng/mL High <0.034 [facility] Comment on above: Result Comment: OLIVIA Mazariegos COMMENTS:Patients with high levels of Biotin oral intake (ie >5 mg/day) may have falsely decreased Troponin levels. Performed By: #### L [id number] ####Electromedical Equipment Technician: RUTH ANN BRAGG ([id number])[facility] ([facility])[address] TROPONIN, WITH SERIAL REFLEX on 06-25-2024 Troponin I.cardiac [Mass/Vol] 0.040 ng/mL High <0.034 [facility] Comment on above: Result Comment: OLIVIA Mazariegos COMMENTS:Patients with high levels of Biotin oral intake (ie >5 mg/day) may have falsely decreased Troponin levels. Performed By: #### L [id number], [id number] ####Electromedical Equipment Technician: RUTH ANN BRAGG ([id number])[facility] ([facility])[address] Troponin I.cardiac [Mass/Vol ]on 06-25-2024 Interpretation and review of laboratory results Abnormal [facility] Interpretation and review of laboratory results Abnormal [facility] URINE CULTUREon 06-25-2024 Bacteria identified Cx Nom (U) Normal [facility] Comment on above: Performed By: #### L [id number] ####Electromedical Equipment Technician: CHERYL STOREY ([id number])[facility] ([facility])[address] [place] [address] Urinalysis complete panel (U )Ordered By: Davion Day on 06-25-2024 Bacteria LM.HPF (Urine sed) [#/Area] Moderate Abnormal Negative /HPF [facility] Bilirubin Ql (U) Negative Negative mg/dL [facility] Clarity (U) Clear Clear [facility] Color (U) Light Yellow Lt. Yellow [facility] Epithelial cells.squamous LM.HPF (Urine sed) [#/Area] 0-2 [facility] Glucose Ql (U) Normal Normal (<70) mg/dL [facility] Hemoglobin Ql (U) Negative Negative mg/dL [facility] Interpretation and review of laboratory results Abnormal [facility] Ketones (U) [Mass/Vol] Negative Negat balbina mg/dL [facility] Leukocyte clumps LM.HPF (Urine sed) [#/Area] Rare Abnormal Negative /HPF [facility] Leukocyte esterase Test strip Ql (U) 75 Abnormal Negative Yomi/uL [facility] Mucus LM.HPF (Urine sed) [#/Area] Few Negative /LPF [facility] Nitrite Ql (U) Negative Negative [facility] pH (U) 5.0 [pH] 5.0 - 8.0 pH [facility] Protein (U) [Mass/Vol] 30 mg/dL Abnormal Negative [facility] RBC LM.HPF (Urine sed) [#/Area] 3-5 Abnormal [facility] Specific gravity (U) [Rel density] 1.018 1.005 - 1.030 [facility] Urobilinogen (U) [Mass/Vol] Normal Normal (0-1) mg/dL [facility] WBC LM.HPF (Urine sed) [#/Area] 11-25 Abnormal [facility] Yeast.budding LM.HPF (Urine sed) [#/Area] Few Abnormal Negative /HPF [facility] XR Chest Single viewon 06-25 [facility] Radiology Study observation (narrative[facility] CNOV Office Visit (FPDOYL) MIKEL WINSTON ([id number]) 1945 F Date Time Provider Department 06/11/24 1:00 PM KOMAL COHN FPDOYL During your visit today, we recorded the following information about you: Temperature Pulse Blood pressure Weight 97.8 degrees 92/minute 143/90 86.2 kg Height 1.626 m Komal Cohn DO 06/18/2024 7:25 PM Signed [facility] Cohn DO [address] [place] [address] Date of Evaluation: 06/11/2024 Patient Name: Mikel Winston : 1945 Chief Complaint: Patient presents with: Hospital Discharge: 06/01/24 [facility], pace maker placement. Skin Check: Skin tag right upper shoulder area Nursing Intake: There are no exam notes on file for this visit. Subjective Ms. Winston is a 78 year old female who presents with the following complaint(s): Patient presents to follow up from [facility] 05/29/24-06/01/24. Patient began to feel tired and [...] intact. Co (more content not included)... Normal [facility] [id number] 06-07-2024 [id number] Patient Choice Patient Name: MIKEL WINSTON Date of : 1945 [facility] 06-06-2024 [facility] Telephone (FPDOYL) MIKEL WINSTON ([id number]) 1945 F Date Time Provider Department 06/06/24 [...] Assessed Reason for Visit: Home Care Arrangements [[id number]] Prescriptions as of 06/06/2024 - blood sugar [...] failure, unspecified HF chroni*12/01/2022 Angina at rest ([facility]) [I20.89] 12/01/2022 Class 1 obesity with body mass index (BMI) of 3*12/01/2022 Systolic murmur [R01.1] 12/26/2022 Platelets decreased ([facility]) [D69.6] 12/26/2022 Depression [F32.A] 12/11/2023 BARRY (acute kidney injury) ([facility]) [N17.9] 11/18/2022 Cellulitis of right lower [...] Encounter Status:Closed by ARNEL GOVEA on 06/06/24 [facility] 30on 06-01-2024 30 Normal [facility] 30 The patient is Moderately Stable - Low risk of patient condition declining or worsening The patient's goals for the shift include comfort The clinical goals for the shift include no complications with new pacer and surgical site Goals met [facility] [id number] 06-01-2024 [id number] [facility] [id number] 06-01-2024 [id number] [facility] [id number] [facility] BASIC METABOLIC PANELon 05-09 Anion gap [Moles/Vol] 8 mmol/L Normal 3-13 [facility] Comment on above: Performed By: #### L [id number] ####Electromedical Equipment Technician: CHERYL STOREY ([id number])[address] Calcium [Mass/Vol] 9.0 mg/dL Normal 8.4-10.4 [facility] Comment on above: Performed By: #### L AB15 ####Electromedical Equipment Technician: CHERYL STOREY ([id number])[facility])[address] [place] [address] Chloride [Moles/Vol] 109 mmol/L High 98-107 [facility] Comment on above: Performed By: #### L AB15 ####Electromedical Equipment Technician: CHERYL STOREY ([id number])[facility])[address] [place] [address] CO2 [Moles/Vol] 20 mmol/L Low 22-30 [facility] Comment on above: Performed By: #### L AB15 ####Electromedical Equipment Technician: CHERYL STOREY ([id number])[facility] ([facility])[address] [place] [address] Creatinine [Mass/Vol] 2.62 mg/dL High 0.52-1.04 [facility] Comment on above: Performed By: #### L AB15 ####Electromedical Equipment Technician: CHERYL STOREY ([id number])[facility] ([facility])[address] [place] [address] [place] GLOMERULAR FILTRATION RATE ML/MIN/1.73 SQ M.PREDICTED 18.2 mL/min/1.73m*2 Low >60.0 [facility] Comment on above: Result Comment: Calc ulation based on the Chronic Kidney Disease Epidemiology Collaboration (CKD-EPI) equation refit without adjustment for race Performed By: #### L AB15 ####Electromedical Equipment Technician: CHERYL STOREY ([id number])[facility] ([facility])[address] [place] [address] Glucose [Mass/Vol] 168 mg/dL High 70-100 [facility] Comment on above: Performed By: #### L AB15 ####Electromedical Equipment Technician: CHERYL STOREY ([id number])[facility] ([facility])[address] [place] [address] Potassium [Moles/Vol] 4.0 mmol/L Normal 3.5-5.1 [facility] Comment on above: Performed By: #### L AB15 ####Electromedical Equipment Technician: CHERYL STOREY ([id number])[facility] ([facility])[address] [place] [address] [place] Sodium [Moles/Vol] 137 mmol/L Normal 135-145 [facility] Comment on above: Performed By: #### L [id number] ####Electromedical Equipment Technician: CHERYL STOREY ([id number])[facility])[address] [place] [address] [place] Urea nitrogen [Mass/Vol] 62 mg/dL High 7-17 [facility] Comment on above: Performed By: #### L [id number] ####Electromedical Equipment Technician: CHERYL STOREY ([id number])[facility])[address] [place] [address] Basic metabolic 1998 panelon 06-01-2024 Anion gap [Moles/Vol] 8 mmol/L 3 - 13 mmol/L [facility] Calcium [Mass/Vol] 9 mg/dL 8.4 - 10. 4 mg/dL [facility] Chloride [Moles/Vol] 109 mmol/L High 98 - 10 7 mmol/L [facility] CO2 [Moles/Vol] 20 mmol/L Low 22 - 30 mmol/L [facility] Creatinine [Mass/Vol] 2.62 mg/dL High 0.52 - 1.04 mg/dL [facility] GFR/1.73 sq M.predicted (S/P/Bld) [Vol rate/Area] 18.2 mL/min Low - PINF [facility] Comment on above: Calculation based on the Chronic Kidney Disease Epidemiology Collaboration (CKD-EPI) equation refit without adjustment for race Glucose [Mass/Vol] 168 mg/dL High 70 - 100 mg/dL [facility] Interpretation and review of laboratory results Abnormal [facility] Potassium [Moles/Vol] 4 mmol/L 3.5 - 5.1 mmol/L [facility] Sodium [Moles/Vol] 137 mmol/L 135 - 145 mmol/L [facility] Urea nitrogen [Mass/Vol] 62 mg/dL High 7 - 17 mg/dL [facility] CBC W Auto Differential pane l (Bld)Ordered By: Guy Carl on 06-01-2024 Basophils (Bld) [#/Vol] 0 10*3/uL 0.0 - 0.2 10*3/uL [facility] Basophils/100 WBC (Bld) 0.4 % 0.0 - 2.0 % [facility] Eosinophils (Bld) [#/Vol] 0.2 10*3/uL 0. 0 - 0.5 10*3/uL [facility] Eosinophils/100 WBC (Bld) 2 % 0.0 - 6.0 % [facility] Erythrocyte distribution width (RBC) [Ratio] 14.7 % 11.5 - 15.0 % [facility] Hematocrit (Bld) [Volume fraction] 27.6 % Low 35.0 - 47.0 % [facility] Hemoglobin (Bld) [Mass/Vol] 8.7 g/dL Low 11.7 - 16.0 g/dL [facility] Immature granulocytes (Bld) [#/Vol] 0 10*3/uL NINF - 0.1 10*3/uL [facility] Immature granulocytes/100 WBC (Bld) 0.5 % 0.0 - 2.0 % [facility] Interpretation and review of laboratory results Abnormal [facility] th IPF 6 [facility] Lymphocytes (Bld) [#/Vol] 1.1 10*3/uL 1. 0 - 4.3 10*3/uL [facility] Lymphocytes/100 WBC (Bld) 14.6 % Low 15 .0 - 45.0 % [facility] MCH (RBC) [Entitic mass] 31.5 pg 26. 0 - 34.0 pg [facility] MCHC (RBC) [Mass/Vol] 31.5 % 30.5 - 36.0 % [facility] MCV (RBC) [Entitic vol] 100 fL High 77.0 - 99.0 fL [facility] Monocytes (Bld) [#/Vol] 1.4 10*3/uL High 0.0 - 0.9 10*3/uL [facility] Monocytes/100 WBC (Bld) 18.9 % High 5.0 - 13.0 % [facility] Neutrophils (Bld) [#/Vol] 4.7 10*3/uL 1. 8 - 7.5 10*3/uL [facility] Neutrophils/100 WBC (Bld) 63.6 % 38 .0 - 82.0 % [facility] Nucleated RBC/100 WBC (Bld) [Ratio] 0 % [facility] Platelet mean volume (Bld) [Entitic vol] 12.4 fL 9.0 - 12.7 fL [facility] Platelets (Bld) [#/Vol] 83 10*3/uL Low 140 - 440 10*3/uL [facility] RBC (Bld) [#/Vol] 2.76 10*6/uL Low 3.80 - 5.2 0 10*6/uL [facility] WBC (Bld) [#/Vol] 7.3 10*3/uL 3.6 - 10.7 10*3/uL [facility] CBC WITH AUTO DIFFERENTIALon 06-01-2024 Basophils (Bld) [#/Vol] 0.0 10*3/uL Normal 0.0-0.2 [facility] Comment on above: Performed By: #### L [id number] ####Electromedical Equipment Technician: CHERYL STOREY ([id number])[facility])[address] [place] [address] Basophils/100 WBC (Bld) 0.4 % Normal 0.0-2.0 [facility] Comment on above: Performed By: #### L [id number] ####Electromedical Equipment Technician: CHERYL STOREY ([id number])[facility])[address] [place] [address] Eosinophils (Bld) [#/Vol] 0.2 10*3/uL Normal 0.0-0.5 [facility] Comment on above: Performed By: #### L [id number] ####Electromedical Equipment Technician: CHERYL STOREY ([id number])[facility])[address] [place] [address] Eosinophils/100 WBC (Bld) 2.0 % Normal 0.0-6.0 [facility] Comment on above: Performed By: #### L [id number] ####Electromedical Equipment Technician: CHERYL STOREY ([id number])[address] Erythrocyte distribution width (RBC) [Ratio] 14.7 % Normal 11.5-15.0 [facility] Comment on above: Performed By: #### L [id number] ####Electromedical Equipment Technician: CHERYL STOREY ([id number])[facility])[address] [place] [address] Hematocrit (Bld) [Volume fraction] 27.6 % Low 35.0-47.0 [facility] Comment on above: Performed By: #### L [id number] ####Electromedical Equipment Technician: CHERYL STOREY ([id number])[address] Hemoglobin (Bld) [Mass/Vol] 8.7 g/dL Low 11.7-16.0 [facility] Comment on above: Performed By: #### L [id number] ####Electromedical Equipment Technician: CHERYL STOREY ([id number])[facility])[address] [place] [address] IMMATURE GRANS % 0.5 % Normal 0.0-2.0 [facility] Comment on above: Performed By: #### L [id number] ####Electromedical Equipment Technician: CHERYL STOREY ([id number])[facility])[address] [place] [address] IMMATURE GRANS ABSOLUTE 0.0 10*3/uL Normal <0.1 [facility] Comment on above: Performed By: #### L [id number] ####Electromedical Equipment Technician: CHERYL STOREY ([id number])[address] IPF 6 Normal [facility] Comment on above: Performed By: #### L [id number] ####Electromedical Equipment Technician: CHERYL STOREY ([id number])[facility])[address] [place] [address] Lymphocytes (Bld) [#/Vol] 1.1 10*3/uL Normal 1.0-4.3 [facility] Comment on above: Performed By: #### L [id number] ####Electromedical Equipment Technician: CHERYL STOREY ([id number])[address] Lymphocytes/100 WBC (Bld) 14.6 % Low 15.0-45.0 [facility] Comment on above: Performed By: #### L [id number] ####Electromedical Equipment Technician: CHERYL STOREY ([id number])[facility])[address] [place] [address] MCH (RBC) [Entitic mass] 31.5 pg Normal 26.0-34.0 [facility] Comment on above: Performed By: #### L [id number] ####Electromedical Equipment Technician: CHERYL STOREY ([id number])[facility])[address] [place] [address] MCHC 31.5 % Normal 30.5-36.0 [facility] Comment on above: Performed By: #### L [id number] ####Electromedical Equipment Technician: CHERYL STOREY ([id number])[facility])[address] [place] [address] MCV (RBC) [Entitic vol] 100.0 fL High 77.0-99.0 [facility] Comment on above: Performed By: #### L [id number] ####Electromedical Equipment Technician: CHERYL STOREY ([id number])[facility] ([facility])[address] [place] [address] Monocytes (Bld) [#/Vol] 1.4 10*3/uL High 0.0-0.9 [facility] Comment on above: Performed By: #### L [id number] ####Electromedical Equipment Technician: CHERYL STOREY ([id number])[facility])[address] [place] [address] Monocytes/100 WBC (Bld) 18.9 % High 5.0-13.0 [facility] Comment on above: Performed By: #### L [id number] ####Electromedical Equipment Technician: CHERYL STOREY ([id number])[facility])[address] [place] [address] NEUTROPHILS ABSOLUTE 4.7 10*3/uL Normal 1.8-7.5 [facility] Comment on above: Performed By: #### L [id number] ####Electromedical Equipment Technician: CHERYL STOREY ([id number])[facility])[address] [place] [address] Neutrophils/100 WBC (Bld) 63.6 % Normal 38.0-82.0 [facility] Comment on above: Performed By: #### L [id number] ####Electromedical Equipment Technician: CHERYL STOREY ([id number])[facility])[address] [place] [address] NRBC 0.0 /100 WBCs Normal 0.0-2.0 [facility] Comment on above: Performed By: #### L [id number] ####Electromedical Equipment Technician: CHERYL STOREY ([id number])[facility] ([facility])[address] [place] [address] Platelet mean volume (Bld) [Entitic vol] 12.4 fL Normal 9.0-12.7 [facility] Comment on above: Performed By: #### L [id number] ####Electromedical Equipment Technician: CHERYL STOREY ([id number])[facility])[address] [place] [address] Platelets (Bld) [#/Vol] 83 10*3/uL Low 140-440 [facility] Comment on above: Performed By: #### L [id number] ####Electromedical Equipment Technician: CHERYL STOREY ([id number])[facility] ([facility])[address] [place] [address] RBC (Bld) [#/Vol] 2.76 10*6/uL Low 3.80-5.20 [facility] Comment on above: Performed By: #### L [id number] ####Electromedical Equipment Technician: CHERYL STOREY ([id number])[facility] ([facility])[address] [place] [address] WBC (Bld) [#/Vol] 7.3 10*3/uL Normal 3.6-10.7 [facility] Comment on above: Performed By: #### L [id number] ####Electromedical Equipment Technician: CHERYL STOREY ([id number])[facility] ([facility])[address] [place] [address] ECG 12-LEADon 06-01-2024 ECG 12-LEAD IMPRESSION: Atrial-ventricular dual-paced complexes Electronically Signed On 06-01-2024 11:57:52 [facility] IMPRESSION: SINUS RHYTHM Ventricular-pacing Electronically Signed On 06-01-2024 07:44:58 EDT by Wil [facility] - Chemistry and C hemistry - challengeon 06-01-2024 Glucose [Mass/Vol] 148 mg/dL High 70 - 100 mg/dL [facility] Glucose [Mass/Vol] 149 mg/dL High 70 - 100 mg/dL [facility] No Panel InformationOrdered By: Wil Donaldson on 06-01-2024 [address] [place] [address] [facility] Work Phone: IA Interval [address] [facility] Work Phone: [phone] QRS [place] [address] [facility] Work Phone: QRSD Interval 148 ms [facility] Work Phone: QT Interval [address] [facility] Work Phone: [phone] QTC Interval 509 ms [facility] Work Phone: T Wave [place] [address] [facility] Work Phone: [facility] Work Phone: No Panel Informationon 06-01 Atrial-ventricular dual-paced complexes Electronically Signed On 06-01-2024 11:57:52 EDT by Wil Alvarado MD - 06/01/2024 IMPRESSION: Atrial-ventricular dual-paced complexes Electronically Signed On 06-01-2024 11:57:52 EDT by Wil Donaldson [facility] Interpretation and review of laboratory results Abnormal [facility] Performed by: [employer] [facility], [address] [place] [address] CLIA ID: [id number] [facility] [employer] [facility] P [place] -26 degrees [facility] [place] Interval 233 ms [facility] QRS [place] -[address] [facility] QRSD Interval [address] [facility] QT Interval 475 ms [facility] QTC Interval 508 ms [facility] T Wave [place] 126 degrees [facility] SINUS RHYTHM Ventricular-pacing Electronically Signed On 06-01-2024 07:44:58 EDT by Wil Alvarado MD - 06/01/2024 IMPRESSION: SINUS RHYTHM Ventricular-pacing Electronically Signed On 06-01-2024 07:44:58 EDT by Wil Donaldson [facility] Interpretation and review of laboratory results Abnormal [facility] Performed by: [facility], [address] [place] [address] CLIA ID: [id number] [facility] Nursing Noteon 06-01-2024 Nursing Note RN removed patients ivs. RN reviewed discharge instructions with patient. Patient belongings gathered. Patient ready for discharge waiting for ride. Normal [facility] Progress Noteon 06-01-2024 Progress Note BMP orders for 1 week post hospital prior to PCP appt. Normal [facility] Progress Note Normal [facility] Vital signsOrdered By: Wil Donaldson on 06-01-2024 Heart rate 60 /min bpm [facility] Work Phone: Vital signson 06-01-2024 Heart rate 68 /min bpm [facility] XR CHEST 2 VIEWSon 4 XR CHEST 2 VIEWS Normal [facility] XR Chest 2 Viewson 4 Diffuse interstitial thickening similar to previous exam. Report Dictated on Electronically Signed By: Wayne Cardenas MD Electronically Signed Date/Time: 06/01/2024 11:33 AM EDT [facility] Patient Name: MIKEL WINSTON : 1945 [...] noted similar to previous exam. Bones: Unremarkable [facility] Wayne Cardenas MD - 06/01/2024 Patient [...] Electronically Signed Date/Time: 06/01/2024 11:33 AM EDT [facility] Radiology Study observation (narrative) [facility] XR Chest 2 ViewsOrdered By: Wayne Cardenas on 06-01-2024 [facility] Work Phone: 30on 05-31-2024 30 Normal [facility] 30 The patient is Moderately Stable - Low risk of patient condition declining or worsening The patient's goals for the shift include no chest pain The clinical goals for the shift include no symptomatic bradycardia Goals met over the shift Normal [facility] [id number] 05-31-2024 [id number] Normal [facility] Anesthesia Noteon 05-31-2024 Anesthesia Note Normal [facility] BASIC METABOLIC PANELon 05-09 Anion gap [Moles/Vol] 8 mmol/L Normal 3-13 [facility] Comment on above: Performed By: #### L AB15 ####Electromedical Equipment Technician: CHERYL STOREY ([id number])[address] Calcium [Mass/Vol] 9.3 mg/dL Normal 8.4-10.4 [facility] Comment on above: Performed By: #### L AB15 ####Electromedical Equipment Technician: CHERYL STOREY ([id number])[facility] ([facility])[address] [place] [address] Chloride [Moles/Vol] 108 mmol/L High 98-107 [facility] Comment on above: Performed By: #### L AB15 ####Electromedical Equipment Technician: CHERYL STOREY ([phone])[facility] ([facility])[address] [place] [address] CO2 [Moles/Vol] 21 mmol/L Low 22-30 [facility] Comment on above: Performed By: #### L AB15 ####Electromedical Equipment Technician: CHERYL STOREY ([phone])[facility])[address] [place] [address] Creatinine [Mass/Vol] 2.53 mg/dL High 0.52-1.04 [facility] Comment on above: Performed By: #### L AB15 ####Electromedical Equipment Technician: CHERYL STOREY ([phone])[facility])[address] [place] [address] GLOMERULAR FILTRATION RATE ML/MIN/1.73 SQ M.PREDICTED 19.0 mL/min/1.73m*2 Low >60.0 [facility] Comment on above: Result Comment: Calc ulation based on the Chronic Kidney Disease Epidemiology Collaboration (CKD-EPI) equation refit without adjustment for race Performed By: #### L AB15 ####Electromedical Equipment Technician: CHERYL STOREY ([id number])[facility])[address] [place] [address] Glucose [Mass/Vol] 102 mg/dL High 70-100 [facility] Comment on above: Performed By: #### L AB15 ####Electromedical Equipment Technician: CHERYL STOREY ([id number])[facility])[address] [place] [address] Potassium [Moles/Vol] 4.1 mmol/L Normal 3.5-5.1 [facility] Comment on above: Performed By: #### L AB15 ####Electromedical Equipment Technician: CHERYL STOREY ([phone])[facility])[address] [place] [address] Sodium [Moles/Vol] 136 mmol/L Normal 135-145 [facility] Comment on above: Performed By: #### L AB15 ####Electromedical Equipment Technician: CHERYL [id number])[facility] ([facility])[address] [place] [address] Urea nitrogen [Mass/Vol] 57 mg/dL High 7-17 [facility] Comment on above: Performed By: #### L AB15 ####Electromedical Equipment Technician: CHERYL STOREY ([id number])[facility])[address] [place] [address] Basic metabolic 1998 panelon 05-31-2024 Anion gap [Moles/Vol] 8 mmol/L 3 - 13 mmol/L [facility] Calcium [Mass/Vol] 9.3 mg/dL 8.4 - 10. 4 mg/dL [facility] Chloride [Moles/Vol] 108 mmol/L High 98 - 10 7 mmol/L [facility] CO2 [Moles/Vol] 21 mmol/L Low 22 - 30 mmol/L [facility] Creatinine [Mass/Vol] 2.53 mg/dL High 0.52 - 1.04 mg/dL [facility] GFR/1.73 sq M.predicted (S/P/Bld) [Vol rate/Area] 19 mL/min Low - PINF [facility] Comment on above: Calculation based on the Chronic Kidney Disease Epidemiology Collaboration (CKD-EPI) equation refit without adjustment for race Glucose [Mass/Vol] 102 mg/dL High 70 - 100 mg/dL [facility] Interpretation and review of laboratory results Abnormal [facility] Potassium [Moles/Vol] 4.1 mmol/L 3.5 - 5.1 mmol/L [facility] Sodium [Moles/Vol] 136 mmol/L 135 - 145 mmol/L [facility] Urea nitrogen [Mass/Vol] 57 mg/dL High 7 - 17 mg/dL [facility] CBC W Auto Differential pane l (Bld)Ordered By: Erica Bronson on 05-31-2024 Basophils (Bld) [#/Vol] 0.1 10*3/uL 0.0 - 0.2 10*3/uL [facility] Basophils/100 WBC (Bld) 0.8 % 0.0 - 2.0 % [facility] Eosinophils (Bld) [#/Vol] 0.2 10*3/uL 0. 0 - 0.5 10*3/uL [facility] Eosinophils/100 WBC (Bld) 2.6 % 0.0 - 6.0 % [facility] Erythrocyte distribution width (RBC) [Ratio] 14.4 % 11.5 - 15.0 % [facility] Hematocrit (Bld) [Volume fraction] 27.1 % Low 35.0 - 47.0 % [facility] Hemoglobin (Bld) [Mass/Vol] 8.8 g/dL Low 11.7 - 16.0 g/dL [facility] Immature granulocytes (Bld) [#/Vol] 0 10*3/uL NINF - 0.1 10*3/uL [facility] Immature granulocytes/100 WBC (Bld) 0.3 % 0.0 - 2.0 % [facility] Interpretation and review of laboratory results Abnormal [facility] IPF 8 [facility] Lymphocytes (Bld) [#/Vol] 1.4 10*3/uL 1. 0 - 4.3 10*3/uL [facility] Lymphocytes/100 WBC (Bld) 22 % 15 .0 - 45.0 % [facility] MCH (RBC) [Entitic mass] 31.7 pg 26. 0 - 34.0 pg [facility] MCHC (RBC) [Mass/Vol] 32.5 % 30.5 - 36.0 % [facility] MCV (RBC) [Entitic vol] 97.5 fL 77.0 - 99.0 fL [facility] Monocytes (Bld) [#/Vol] 1.2 10*3/uL High 0.0 - 0.9 10*3/uL [facility] Monocytes/100 WBC (Bld) 18.6 % High 5.0 - 13.0 % [facility] Neutrophils (Bld) [#/Vol] 3.6 10*3/uL 1. 8 - 7.5 10*3/uL [facility] Neutrophils/100 WBC (Bld) 55.7 % 38 .0 - 82.0 % [facility] Nucleated RBC/100 WBC (Bld) [Ratio] 0 % [facility] Platelet mean volume (Bld) [Entitic vol] 12.5 fL 9.0 - 12.7 fL [facility] Platelets (Bld) [#/Vol] 85 10*3/uL Low 140 - 440 10*3/uL [facility] RBC (Bld) [#/Vol] 2.78 10*6/uL Low 3.80 - 5.2 0 10*6/uL [facility] WBC (Bld) [#/Vol] 6.4 10*3/uL 3.6 - 10.7 10*3/uL [facility] CBC WITH AUTO DIFFERENTIALon 05-31-2024 Basophils (Bld) [#/Vol] 0.1 10*3/uL Normal 0.0-0.2 [facility] Comment on above: Performed By: #### L [id number] ####Electromedical Equipment Technician: CHERYL STOREY ([id number])[facility] ([facility])[address] [place] [address] Basophils/100 WBC (Bld) 0.8 % Normal 0.0-2.0 [facility] Comment on above: Performed By: #### L [id number] ####Electromedical Equipment Technician: CHERYL STOREY ([id number])[facility])[address] [place] [address] Eosinophils (Bld) [#/Vol] 0.2 10*3/uL Normal 0.0-0.5 [facility] Comment on above: Performed By: #### L [id number] ####Electromedical Equipment Technician: CHERYL STOREY ([id number])[facility])[address] [place] [address] Eosinophils/100 WBC (Bld) 2.6 % Normal 0.0-6.0 [facility] Comment on above: Performed By: #### L [id number] ####Electromedical Equipment Technician: CHERYL STOREY ([id number])[facility])[address] [place] [address] Erythrocyte distribution width (RBC) [Ratio] 14.4 % Normal 11.5-15.0 [facility] Comment on above: Performed By: #### L [id number] ####Electromedical Equipment Technician: CHERYL STOREY ([id number])[facility])[address] [place] [address] Hematocrit (Bld) [Volume fraction] 27.1 % Low 35.0-47.0 [facility] Comment on above: Performed By: #### L [id number] ####Electromedical Equipment Technician: CHERYL STOREY ([id number])[facility])[address] [place] [address] Hemoglobin (Bld) [Mass/Vol] 8.8 g/dL Low 11.7-16.0 [facility] Comment on above: Performed By: #### L [id number] ####Electromedical Equipment Technician: CHERYL STOREY ([id number])[facility])[address] [place] [address] IMMATURE GRANS % 0.3 % Normal 0.0-2.0 [facility] Comment on above: Performed By: #### L [id number] ####Electromedical Equipment Technician: CHERYL STOREY ([id number])[facility])[address] [place] [address] IMMATURE GRANS ABSOLUTE 0.0 10*3/uL Normal <0.1 [facility] Comment on above: Performed By: #### L [id number] ####Electromedical Equipment Technician: CHERYL STOREY ([id number])[facility])[address] [place] [address] [place] IPF 8 Normal [facility] Comment on above: Performed By: #### L [id number] ####Electromedical Equipment Technician: CHERYL STOREY ([id number])[facility])[address] [place] [address] Lymphocytes (Bld) [#/Vol] 1.4 10*3/uL Normal 1.0-4.3 [facility] Comment on above: Performed By: #### L [id number] ####Electromedical Equipment Technician: CHERYL STOREY ([id number])[facility])[address] [place] [address] Lymphocytes/100 WBC (Bld) 22.0 % Normal 15.0-45.0 [facility] Comment on above: Performed By: #### L [id number] ####Electromedical Equipment Technician: CHERYL STOREY ([id number])[facility])[address] [place] [address] MCH (RBC) [Entitic mass] 31.7 pg Normal 26.0-34.0 [facility] Comment on above: Performed By: #### L [id number] ####Electromedical Equipment Technician: CHERYL STOREY ([id number])[facility])[address] [place] [address] MCHC 32.5 % Normal 30.5-36.0 [facility] Comment on above: Performed By: #### L [id number] ####Electromedical Equipment Technician: CHERYL STOREY ([id number])[facility] ([facility])[address] [place] [address] MCV (RBC) [Entitic vol] 97.5 fL Normal 77.0-99.0 [facility] Comment on above: Performed By: #### L [id number] ####Electromedical Equipment Technician: CHERYL STOREY ([id number])[facility])[address] [place] [address] Monocytes (Bld) [#/Vol] 1.2 10*3/uL High 0.0-0.9 [facility] Comment on above: Performed By: #### L [id number] ####Electromedical Equipment Technician: CHERYL STOREY ([id number])[facility])[address] [place] [address] Monocytes/100 WBC (Bld) 18.6 % High 5.0-13.0 [facility] Comment on above: Performed By: #### L [id number] ####Electromedical Equipment Technician: CHERYL STOREY ([id number])[facility])[address] [place] [address] NEUTROPHILS ABSOLUTE 3.6 10*3/uL Normal 1.8-7.5 [facility] Comment on above: Performed By: #### L [id number] ####Electromedical Equipment Technician: CHERYL STOREY ([id number])[facility])[address] [place] [address] Neutrophils/100 WBC (Bld) 55.7 % Normal 38.0-82.0 [facility] Comment on above: Performed By: #### L [id number] ####Electromedical Equipment Technician: CHERYL STOREY ([id number])[facility] ([facility])[address] [place] [address] NRBC 0.0 /100 WBCs Normal 0.0-2.0 [facility] Comment on above: Performed By: #### L [id number] ####Electromedical Equipment Technician: CHERYL STOREY ([id number])[facility] ([facility])[address] [place] [address] Platelet mean volume (Bld) [Entitic vol] 12.5 fL Normal 9.0-12.7 [facility] Comment on above: Performed By: #### L [id number] ####Electromedical Equipment Technician: CHERYL STOREY ([id number])[facility] ([facility])[address] [place] [address] Platelets (Bld) [#/Vol] 85 10*3/uL Low 140-440 [facility] Comment on above: Performed By: #### L [id number] ####Electromedical Equipment Technician: CHERYL STOREY ([id number])[facility] ([facility])[address] [place] [address] RBC (Bld) [#/Vol] 2.78 10*6/uL Low 3.80-5.20 [facility] Comment on above: Performed By: #### L [id number] ####Electromedical Equipment Technician: CHERYL STOREY ([id number])[facility])[address] [place] [address] WBC (Bld) [#/Vol] 6.4 10*3/uL Normal 3.6-10.7 [facility] Comment on above: Performed By: #### L [id number] ####Electromedical Equipment Technician: CHERYL STOREY ([id number])[facility])[address] [place] [address] Consulton 05-31-2024 Consult Normal [facility] Electrophysiology studyon Successful implantation of a dual chamber permanent pacemaker via the left axillary vein. PLAN: - 2-view CXR in AM. - Device interrogation in AM - The patient will be observed overnight and will likely go home in the morning pending above. CV CPACS HEMO [facility] - Chemistry and C hemistry - challengeon 05-31-2024 Glucose [Mass/Vol] 156 mg/dL High 70 - 100 mg/dL [facility] Glucose [Mass/Vol] 108 mg/dL High 70 - 100 mg/dL [facility] Glucose [Mass/Vol] 130 mg/dL High 70 - 100 mg/dL [facility] Glucose [Mass/Vol] 107 mg/dL High 70 - 100 mg/dL [employer] No Panel Informationon 05-31 Interpretation and review of laboratory results [facility]normal [facility] Performed by: [facility], [address] [place] [address] CLIA ID: [id number] [facility] Interpretation and review of laboratory results Abnormal [facility] Performed by: [facility], [address] [place] [address] CLIA ID: [id number] [facility] Interpretation and review of laboratory results Abnormal [facility] Performed by: [facility], [address] [place] [address] CLIA ID: [id number] [facility] Predominant 2:1 AV block Likely type 2 Right bundle branch block LAFB Poor R Wave progression Electronically Signed On 05-31-2024 10:23:14 EDT by Huy Frederick CV Huy Jin MD - 05/31/2024 IMPRESSION: Predominant 2:1 AV block Likely type 2 Right bundle branch block LAFB Poor R Wave progression Electronically Signed On 05-31-2024 10:23:14 EDT by Huy Frederick [facility] Interpretation and review of laboratory results Abnormal [facility] Performed by: [facility], [address] [place] [address] CLIA ID: [id number] [facility] [place] [facility] No Panel InformationOrdered By: Huy Frederick on 05-31-2024 P [place] 54 degrees [employer] Work Phone: IA Interval 282 ms [employer] Work Phone: QRS [place] -64 degrees [employer] Phone: [phone] QRSD Interval 172 ms [facility] Work Phone: [phone] QT Interval 679 ms [employer] Phone: QTC Interval 494 ms [employer] Work Phone: [phone] T Wave [place] -16 degrees [employer] Phone: [employer] Phone: [phone] Progress Noteon 05-31-2024 Progress Note [facility] Progress Note Normal [facility] [facility] Progress Note Nutrition rescreen completed. Chart reviewed. Patient to be monitored and followed by the diet sales support technician. 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 Pt is currently not active with [facility], was discharged 05/09/2024. [facility] [id number] 05-30-2024 [id number] Normal [facility] Consulton 05-30-2024 Consult Normal [facility] ECG 12-LEADon 05-30-2024 ECG 12-LEAD IMPRESSION: Sinus bradycardia Prolonged IA interval Right bundle branch block LVH with secondary repolarization abnormality Inferior infarct, old Electronically Signed On 05-30-2024 03:56:08 EDT by Jade Loo [facility] - Chemistry and C hemistry - challengeon 05-30-2024 TSH Qn 3.912 m[IU]/L [facility] Glucose [Mass/Vol] 183 mg/dL High 70 - 100 mg/dL [facility] Glucose [Mass/Vol] 153 mg/dL High 70 - 100 mg/dL [facility] Glucose [Mass/Vol] 176 mg/dL High 70 - 100 mg/dL [facility] Glucose [Mass/Vol] 117 mg/dL High 70 - 100 mg/dL [facility] - Chemistry and C hemistry - challengeOrdered By: Ovidio Carson on 05-30-2024 Troponin I.cardiac [Mass/Vol] 0.145 ng/mL Critically high NINF - 0.034 ng/mL [facility] No Panel Informationon 05-30 Interpretation and review of laboratory results Abnormal [facility] Performed by: [facility], [address] [facility] [address] CLIA ID: [id number] [facility] Interpretation and review of laboratory results Abnormal [facility] Performed by: [facility], [address] [place] [address] CLIA ID: [id number] [facility] Interpretation and review of laboratory results Abnormal [facility] Performed by: [facility], [address] [place] [address] CLIA ID: [id number] [facility] Interpretation and review of laboratory results Abnormal [facility] Performed by: [facility], [address] [place] [address] CLIA ID: [id number] [facility] Sinus bradycardia Prolonged IA interval Right bundle branch block LVH with secondary repolarization abnormality Inferior infarct, old Electronically Signed On 05-30-2024 03:56:08 EDT by Jade Bolanos, - 05/30/2024 IMPRESSION: Sinus bradycardia Prolonged IA interval Right bundle branch block LVH with secondary repolarization abnormality Inferior infarct, old Electronically Signed On 05-30-2024 03:56:08 EDT by Jade Loo [facility] No Panel InformationOrdered By: Jade Loo on 05-30-2024 P [place] -[address] [facility] Work Phone: IA Interval 266 ms [employer] Work Phone: QRS [place] -59 degrees [employer] Work Phone: QRSD Interval [address] [facility] Work Phone: QT Interval [address] [facility] Phone: QTC Interval [address] [facility] Work Phone: T Wave [place] 142 degrees [employer] Phone: [employer] Work Phone: Nursing Noteon 05-30-2024 Nursing Note Report called to [facility] . Pt and family aware of transport to facility. Normal [facility] Progress Noteon 05-30-[address] [facility] Progress Note Normal [facility] Progress Note Normal [facility] THYROID STIMULATING HORMONEo n 05-30-2024 THYROID STIMULATING HORMONE 3.912 uIU/mL Normal 0.465-4.680 [facility] Comment on above: Performed By: #### L [id number] ####Electromedical Equipment Technician: CHERYL STOREY ([id number])[facility] ([facility])[address] [place] [address] [place] TROPONIN Ion 05-30-2024 Troponin I.cardiac [Mass/Vol] 0.145 ng/mL Critically high <0.034 [facility] Comment on above: Result Comment: OLIVIA Mazariegos COMMENTS:Patients with high levels of Biotin oral intake (ie >5 mg/day) may have falsely decreased Troponin levels. Performed By: #### L [id number] ####Electromedical Equipment Technician: RUTH ANN BRAGG ([id number])[facility] ([facility])[address] [place] [address] [place] TSH Qnon 05-30-2024 Interpretation and review of laboratory results Normal [facility] Troponin I.cardiac [Mass/Vol ]Ordered By: Ovidio Carson on 05-30-2024 Interpretation and review of laboratory results Abnormal [facility] Patients with high levels of Biotin oral intake (ie >5 mg/day) may have falsely decreased Troponin levels. [facility] Vital signsOrdered By: Jade Loo on 05-30-2024 Heart rate 34 /min bpm [facility] Work Phone: BASIC METABOLIC PANELon 10-2 Anion gap [Moles/Vol] 11 mmol/L Normal 3-13 [facility] Comment on above: Performed By: #### L [id number], [id number], LAB15, [id number] ####Electromedical Equipment Technician: RUTH ANN BRAGG ([id number])[facility] ([facility])[address] Calcium [Mass/Vol] 9.5 mg/dL Normal 8.4-10.4 [facility] Comment on above: Performed By: #### L [id number], [id number], LAB15, [id number] ####Electromedical Equipment Technician: RUTH ANN BRAGG ([id number])[facility] ([facility])[address] Chloride [Moles/Vol] 106 mmol/L Normal 98-107 [facility] Comment on above: Performed By: #### L [id number], [id number], LAB15, [id number] ####Electromedical Equipment Technician: RUTH ANN BRAGG ([id number])[facility] [place] ([facility])[address] [place] [address] [place] CO2 [Moles/Vol] 20 mmol/L Low 22-30 [facility] Comment on above: Performed By: #### L [id number], [id number], LAB15, [id number] ####Electromedical Equipment Technician: RUTH ANN BRAGG ([id number])[facility] ([facility])[address] Creatinine [Mass/Vol] 2.01 mg/dL High 0.52-1.04 [facility] Comment on above: Performed By: #### L [id number], [id number], LAB15, [id number] ####Electromedical Equipment Technician: RUTH ANN BRAGG ([id number])[facility] [place] ([facility])[address] [place] [address] [place] GLOMERULAR FILTRATION RATE ML/MIN/1.73 SQ M.PREDICTED 25.0 mL/min/1.73m*2 Low >60.0 [facility] Comment on above: Result Comment: Calc ulation based on the Chronic Kidney Disease Epidemiology Collaboration (CKD-EPI) equation refit without adjustment for race Performed By: #### L [id number], [id number], LAB15, [id number] ####Electromedical Equipment Technician: RUTH ANN BRAGG ([id number])[facility]ITAL[facility] CAMPUSOmi (SBHLAB)[address] Glucose [Mass/Vol] 122 mg/dL High 70-100 [facility] Comment on above: Performed By: #### L [id number], [id number], LAB15, [id number] ####Electromedical Equipment Technician: RUTH ANN BRAGG ([phone])[facility] (SBHLAB)[address] Potassium [Moles/Vol] 4.0 mmol/L Normal 3.5-5.1 [facility] Comment on above: Performed By: #### L [id number], [id number], LAB15, [id number] ####Electromedical Equipment Technician: RUTH ANN BRAGG ([id number])[facility] (SBHLAB)[address] Sodium [Moles/Vol] 137 mmol/L Normal 135-145 [facility] Comment on above: Performed By: #### L [id number], [id number], LAB15, [id number] ####Electromedical Equipment Technician: RUTH ANN BRAGG ([id number])[facility] (SBHLAB)[address] Urea nitrogen [Mass/Vol] 42 mg/dL High 7-17 [facility] Comment on above: Performed By: #### L [id number], [id number], LAB15, RFI744 ####Electromedical Equipment Technician: RUTH ANN BRAGG ([phone])[facility] (SBHLAB)[address] Basic metabolic 1998 panelon 05-29-2024 Anion gap [Moles/Vol] 11 mmol/L 3 - 13 mmol/L [facility] Calcium [Mass/Vol] 9.5 mg/dL 8.4 - 10. 4 mg/dL [facility] Chloride [Moles/Vol] 106 mmol/L 98 - 10 7 mmol/L [facility] CO2 [Moles/Vol] 20 mmol/L Low 22 - 30 mmol/L [facility] Creatinine [Mass/Vol] 2.01 mg/dL High 0.52 - 1.04 mg/dL [facility] GFR/1.73 sq M.predicted (S/P/Bld) [Vol rate/Area] 25 mL/min Low - PINF [facility] Comment on above: Calculation based on the Chronic Kidney Disease Epidemiology Collaboration (CKD-EPI) equation refit without adjustment for race Glucose [Mass/Vol] 122 mg/dL High 70 - 100 mg/dL [facility] Interpretation and review of laboratory results Abnormal [facility] th Potassium [Moles/Vol] 4 mmol/L 3.5 - 5.1 mmol/L [facility] Sodium [Moles/Vol] 137 mmol/L 135 - 145 mmol/L [facility] Urea nitrogen [Mass/Vol] 42 mg/dL High 7 - 17 mg/dL [facility] CBC W Auto Differential pane l (Bld)on 05-29-2024 Basophils (Bld) [#/Vol] 0.1 10*3/uL 0.0 - 0.2 10*3/uL [facility] Basophils/100 WBC (Bld) 0.8 % 0.0 - 2.0 % [facility] Eosinophils (Bld) [#/Vol] 0.1 10*3/uL 0. 0 - 0.5 10*3/uL [facility] Eosinophils/100 WBC (Bld) 2.1 % 0.0 - 6.0 % [facility] Erythrocyte distribution width (RBC) [Ratio] 14.2 % 11.5 - 15.0 % [facility] Hematocrit (Bld) [Volume fraction] 31.2 % Low 35.0 - 47.0 % [facility] Hemoglobin (Bld) [Mass/Vol] 10.1 g/dL Low 11.7 - 16.0 g/dL [facility] Immature granulocytes (Bld) [#/Vol] 0 10*3/uL NINF - 0.1 10*3/uL [facility] Immature granulocytes/100 WBC (Bld) 0.5 % 0.0 - 2.0 % [facility] Interpretation and review of laboratory results Abnormal [facility] IPF 6 [facility] [employer] Lymphocytes (Bld) [#/Vol] 1.4 10*3/uL 1. 0 - 4.3 10*3/uL [facility] Lymphocytes/100 WBC (Bld) 22.1 % 15 .0 - 45.0 % [facility] MCH (RBC) [Entitic mass] 31.7 pg 26. 0 - 34.0 pg [facility] MCHC (RBC) [Mass/Vol] 32.4 % 30.5 - 36.0 % [facility] MCV (RBC) [Entitic vol] 97.8 fL 77.0 - 99.0 fL [facility] [employer] Monocytes (Bld) [#/Vol] 1.2 10*3/uL High 0.0 - 0.9 10*3/uL [facility] Monocytes/100 WBC (Bld) 19.1 % High 5.0 - 13.0 % [facility] Neutrophils (Bld) [#/Vol] 3.5 10*3/uL 1. 8 - 7.5 10*3/uL [facility] [employer] Neutrophils/100 WBC (Bld) 55.4 % 38 .0 - 82.0 % [facility] [employer] Nucleated RBC/100 WBC (Bld) [Ratio] 0 % [facility] [employer] Platelet mean volume (Bld) [Entitic vol] 12 fL 9.0 - 12.7 fL [facility] [employer] Platelets (Bld) [#/Vol] 111 10*3/uL Low 140 - 440 10*3/uL [facility] RBC (Bld) [#/Vol] 3.19 10*6/uL Low 3.80 - 5.2 0 10*6/uL [facility] WBC (Bld) [#/Vol] 6.3 10*3/uL 3.6 - 10.7 10*3/uL [facility] CBC WITH AUTO DIFFERENTIALon 05-29-2024 Basophils (Bld) [#/Vol] 0.1 10*3/uL Normal 0.0-0.2 [facility] Comment on above: Performed By: #### L [id number] ####Electromedical Equipment Technician: RUTH ANN BRAGG ([id number])[facility] (SBAB)[address] [place] [address] Basophils/100 WBC (Bld) 0.8 % Normal 0.0-2.0 [facility] Comment on above: Performed By: #### L [id number] ####Electromedical Equipment Technician: RUTH NAN BRAGG ([phone])[facility] (SBHLAB)[address] Eosinophils (Bld) [#/Vol] 0.1 10*3/uL Normal 0.0-0.5 [facility] Comment on above: Performed By: #### L [id number] ####Electromedical Equipment Technician: RUTH ANN BRAGG ([id number])[facility] (SBHLAB)[address] Eosinophils/100 WBC (Bld) 2.1 % Normal 0.0-6.0 [facility] Comment on above: Performed By: #### L [id number] ####Electromedical Equipment Technician: RUTH ANN BRAGG ([phone])[facility] ([facility] [place] [address] Erythrocyte distribution width (RBC) [Ratio] 14.2 % Normal 11.5-15.0 [facility] Comment on above: Performed By: #### L [id number] ####Electromedical Equipment Technician: RUTH ANN BRAGG ([id number])[facility] ([facility] [place] [address] Hematocrit (Bld) [Volume fraction] 31.2 % Low 35.0-47.0 [facility] Comment on above: Performed By: #### L [id number] ####Electromedical Equipment Technician: RUTH ANN BRAGG ([id number])[facility] (SBAB)[address] [place] [address] Hemoglobin (Bld) [Mass/Vol] 10.1 g/dL Low 11.7-16.0 [facility] Comment on above: Performed By: #### L [id number] ####Electromedical Equipment Technician: RUTH ANN BRAGG ([id number])[facility] (SBAB)[address] IMMATURE GRANS % 0.5 % Normal 0.0-2.0 [facility] Comment on above: Performed By: #### L [id number] ####Electromedical Equipment Technician: RUTH ANN BRAGG ([id number])[facility] (SBHLAB)[address] [place] [address] IMMATURE GRANS ABSOLUTE 0.0 10*3/uL Normal <0.1 [facility] Comment on above: Performed By: #### L [id number] ####Electromedical Equipment Technician: RUTH ANN BRAGG ([id number])[facility] (SBHLAB)[address] IPF 6 Normal [facility] Comment on above: Performed By: #### L [id number] ####Electromedical Equipment Technician: RUTH ANN BRAGG ([id number])[facility] (SBHLAB)[address] [place] [address] Lymphocytes (Bld) [#/Vol] 1.4 10*3/uL Normal 1.0-4.3 [facility] Comment on above: Performed By: #### L [id number] ####Electromedical Equipment Technician: RUTH ANN BRAGG ([id number])[facility] (SBHLAB)[address] [place] [address] Lymphocytes/100 WBC (Bld) 22.1 % Normal 15.0-45.0 [facility] Comment on above: Performed By: #### L [id number] ####Electromedical Equipment Technician: RUTH ANN BRAGG ([phone])[facility] (SBHLAB)[address] [place] [address] MCH (RBC) [Entitic mass] 31.7 pg Normal 26.0-34.0 [facility] Comment on above: Performed By: #### L [id number] ####Electromedical Equipment Technician: RUTH ANN BRAGG ([phone])[facility] (SBHLAB)[address] [place] [address] MCHC 32.4 % Normal 30.5-36.0 [facility] Comment on above: Performed By: #### L [id number] ####Electromedical Equipment Technician: RUTH ANN YEMI ([id number])[facility] (SBHLAB)[address] MCV (RBC) [Entitic vol] 97.8 fL Normal 77.0-99.0 S [facility] Comment on above: Performed By: #### L [id number] ####Electromedical Equipment Technician: RUTH ANN YEMI ([id number])[facility] (SBHLAB)[address] Monocytes (Bld) [#/Vol] 1.2 10*3/uL High 0.0-0.9 [facility] Comment on above: Performed By: #### L [id number] ####Electromedical Equipment Technician: RUTH ANN BRAGG ([id number])[facility] [place] (SBHLAB)[address] Monocytes/100 WBC (Bld) 19.1 % High 5.0-13.0 S [facility] Comment on above: Performed By: #### L [id number] ####Electromedical Equipment Technician: RUTH ANN YEMI ([id number])[facility] (SBHLAB)[address] NEUTROPHILS ABSOLUTE 3.5 10*3/uL Normal 1.8-7.5 [facility] Comment on above: Performed By: #### L [id number] ####Electromedical Equipment Technician: RUTH ANN OBREGONWILTON ([id number])[facility] [place] (SBHLAB)[address] Neutrophils/100 WBC (Bld) 55.4 % Normal 38.0-82.0 [facility] Comment on above: Performed By: #### L [id number] ####Electromedical Equipment Technician: RUTH ANN HERRONSHELTON ([id number])[facility] [place] (SBHLAB)[address] NRBC 0.0 /100 WBCs Normal 0.0-2.0 [facility] Comment on above: Performed By: #### L [id number] ####Electromedical Equipment Technician: RUTH ANN BRAGG ([id number])[facility]ITAL[facility] SANDERSN (SBHLAB)[address] Platelet mean volume (Bld) [Entitic vol] 12.0 fL Normal 9.0-12.7 [facility] Comment on above: Performed By: #### L [id number] ####Electromedical Equipment Technician: RUTH ANN BRAGG ([id number])[facility]ITALRyan MONTGOMERYMARGARETN (SBHLAB)[address] Platelets (Bld) [#/Vol] 111 10*3/uL Low 140-440 [facility] Comment on above: Performed By: #### L [id number] ####Electromedical Equipment Technician: RUTH ANN BRAGG ([id number])[facility]ITAL[facility] (SBHLAB)[address] RBC (Bld) [#/Vol] 3.19 10*6/uL Low 3.80-5.20 [facility] Comment on above: Performed By: #### L [id number] ####Electromedical Equipment Technician: RUHT ANN BRAGG ([id number])[facility]ITAL[facility]N (SBHLAB)[address] WBC (Bld) [#/Vol] 6.3 10*3/uL Normal 3.6-10.7 [facility] Comment on above: Performed By: #### L [id number] ####Electromedical Equipment Technician: RUTH ANN BRAGG ([phone])[facility]ITAL[facility] (SBHLAB)[address] ED Provider Noteon ED Provider Note Normal [facility] Laboratory - Chemistry and C hemistry - challengeOrdered By: Sylvia Hall on 05-29-2024 Troponin I.cardiac [Mass/Vol] 0.149 ng/mL Critically high NINF - 0.034 ng/mL [facility] Laboratory - Chemistry and C hemistry - challengeon 05-29-2024 Glucose [Mass/Vol] 112 mg/dL High 70 - 100 mg/dL [facility] Magnesium [Mass/Vol] 1.9 mg/dL 1.6 - 2 .3 mg/dL [facility] Laboratory - Chemistry and C hemistry - challengeOrdered By: Jayashree Naranjo on 05-29-2024 Troponin I.cardiac [Mass/Vol] 0.124 ng/mL Critically high NINF - 0.034 ng/mL [facility] Laboratory - Microbiology an d Antimicrobial susceptibilityon 05-29-2024 FLUAV RNA HUGO+probe Ql (Resp) Not detected Not Detected [facility] FLUBV RNA HUGO+probe Ql (Resp) Not detected Not Detected [facility] RSV RNA HUGO+probe Ql (Resp) Not detected Not Detected [facility] SARS-CoV-2 (COVID-19) RNA HUGO+probe Ql (Resp) Not detected Not Detected [facility] SARS-CoV-2 (COVID-19) RNA HUGO+probe Ql (Unsp spec) Methodology: real-time, RT-PCR The SARS-CoV-2, Flu A/B, and RSV Combo assay is intended for in vitro diagnostic use under the FDA Emergency Use Authorization (EUA). This test has not been FDA cleared or approved. In compliance with this authorization, please visit www.fda.gov/media/70 7720/download or www.fda.gov/media/28 4733/download to access the applicable information sheets. [facility] MAGNESIUMon 05-29-2024 Magnesium [Mass/Vol] 1.9 mg/dL Normal 1.6-2.3 [facility] Comment on above: Performed By: #### L [id number], [id number], LAB15, QCU395 ####Electromedical Equipment Technician: RUTH ANN BRAGG ([id number])[facility] ([address] Magnesium [Mass/Vol]on 05-29 Interpretation and review of laboratory results Normal [facility] NT PRO BNPon 05-29-2024 Natriuretic peptide B (Bld) [Mass/Vol] 3820 pg/mL High <20-300 [facility] Comment on above: Performed By: #### L [id number], [id number], LAB15, [id number] ####Electromedical Equipment Technician: RUTH ANN BRAGG ([id number])[facility] (SBHLAB)[address] Natriuretic peptide B [Mass/ Vol]on 05-29-2024 Interpretation and review of laboratory results Abnormal [facility] Natriuretic peptide B (Bld) [Mass/Vol] 3820 pg/mL High <20 - 300 [facility] No Panel Informationon 05-29 Interpretation and review of laboratory results Abnormal [facility] Performed by: [facility], [address] [address] CLIA ID: [id number] [facility] Progress Noteon 05-29-2024 Progress Note Normal [facility] h System [facility] SARS-COV-2, FLU A/B, AND RSV COMBOon 05-29-2024 SARS-CoV-2 (COVID-19) RNA HUGO+probe Ql (Unsp spec) Normal [facility] ealth System [facility] Comment on above: Performed By: #### L [id number] ####Electromedical Equipment Technician: RUTH ANN BRAGG ([phone])[facility] (SBHLAB)[address] [place] [address] SARS-CoV-2, Flu A/B, and RSV Comboon 05-29-2024 Interpretation and review of laboratory results Normal [facility] TROPONIN Ion 05-29-2024 Troponin I.cardiac [Mass/Vol] 0.149 ng/mL Critically high <0.034 [facility] Comment on above: Result Comment: OLIVIA Mazariegos COMMENTS:Patients with high levels of Biotin oral intake (ie >5 mg/day) may have falsely decreased Troponin levels. Performed By: #### L [id number] ####Electromedical Equipment Technician: RUTH ANN BRAGG ([id number])[facility] ([facility] TROPONIN, WITH SERIAL REFLEX on 05-29-2024 Troponin I.cardiac [Mass/Vol] 0.124 ng/mL Critically high <0.034 [facility] Comment on above: Result Comment: OLIVIA Mazariegos COMMENTS:Patients with high levels of Biotin oral intake (ie >5 mg/day) may have falsely decreased Troponin levels. Performed By: #### L [id number], [id number], LAB15, [id number] ####Electromedical Equipment Technician: RUTH ANN BRAGG ([id number])[facility]ITALRyan VALENTINANAMITA (SBHLAB)[address] [place] [address] Troponin I.cardiac [Mass/Vol ]Ordered By: Sylvia Hall on 05-29-2024 Interpretation and review of laboratory results Abnormal [facility] Patients with high levels of Biotin oral intake (ie >5 mg/day) may have falsely decreased Troponin levels. [facility] Troponin I.cardiac [Mass/Vol ]Ordered By: Jayashree Naranjo on 05-29-2024 Interpretation and review of laboratory results Abnormal [facility] Patients with high levels of Biotin oral intake (ie >5 mg/day) may have falsely decreased Troponin levels. [facility] XR Chest Single viewon 05-29 Stable cardiomegaly. Chronic interstitial changes within the lungs. Mild superimposed pulmonary vascular congestion is suspected, which appears overall improved when compared to the study dated 01/30/2024. Report Dictated on Electronically Signed By: Shemar Teresa MD Electronically Signed Date/Time: 05/29/2024 7:24 PM EDT [facility] [employer] [facility] Patient Name: MIKEL WINSTON : 1945 [facility]#: [id number] Exam Date/Time: 05/29/2024 19:24 Procedure: XR CHEST [...] are degenerative changes of the spine. [facility] [employer] [facility] Shemar Teresa MD - 05/29/2024 Patient Name: MIKEL WINSTON : 1945 [facility]#: [id number] Exam Date/Time: 05/29/2024 19:24 Procedure: XR CHEST [...] Electronically Signed Date/Time: 05/29/2024 7:24 PM EDT [facility] Radiology Study observation (narrative) [facility] hank XR Chest Single viewOrdered By: Shemar Teresa on 05-29-2024 [facility] CNOVon 04-27-2024 CNOV Office Visit (FPDOYL) MIKEL WINSTON ([id number]) 1945 F Date Time Provider Department 04/27/24 4:15 PM KOMAL COHN FPDOYL During your visit today, we recorded the following information about you: Temperature Pulse Blood pressure Weight 98.1 degrees 61/minute 130/64 89.8 kg Height 1.626 m Komal Cohn DO 05/06/2024 5:10 PM Signed [facility] [place] Komal Cohn DO [address] [place] [address] Date of Evaluation: 04/27/2024 Patient Name: Mikel [...] by the patient and a relative. No mash processing operator was used. Neck Pain Pertinent negatives include [...] moist. Pharynx: (more content not included)... Normal [facility] US RETROPERITONEALon 024 US RETROPERITONEAL Normal [facility] Retroperitoneumon 024 1. Unremarkable renal ultrasound without urolithiasis or hydroureteronephrosi s. 2. Limited visualization of the left kidney due to limited acoustic windows probably accounting for the lack of visualization of the small left lower renal pole cyst noted on the prior study. Report Dictated on Electronically Signed By: Robinson Patel MD Electronically Signed Date/Time: 04/27/2024 11:45 AM EDT [facility] Patient Name: MIKEL WINSTON : 1945 [...] collection is seen adjacent to the kidneys. [facility] Robinson Patel MD - 04/27/2024 Patient [...] Electronically Signed Date/Time: 04/27/2024 11:45 AM EDT [employer] RetroperitoneumOrdered By : Robinson Patel on 04-27-2024 [employer] Phone: No Panel InformationOrdered By: Judy Tejada on 04-25-2024 Ao mid PSV 152.5 cm/s [employer] Phone: [phone] L renal orig RI 0.81 [employer] [facility] Work Phone: [phone] Left kidney length 9.13 cm [employer] Phone: [phone] Left renal dist EDV 9.7 cm/s [employer] Phone: [phone] Left renal dist PSV 77.0 cm/s [employer] Phone: [phone] Left renal dist RAR 0.50 [employer] Phone: [phone] Left Renal Dist RI 0.87 [employer] Phone: [phone] Left renal mid EDV 11.4 cm/s [employer] Phone: [phone] Left renal mid PSV 83.8 cm/s [facility] Work Phone: Left renal mid RAR 0.55 [facility] Work Phone: Left Renal Mid RI 0.86 [facility] Work Phone: Left renal middle parenchyma EDV 2.7 cm/s [facility] Work Phone: Left renal middle parenchyma PSV 14.0 cm/s [facility] Work Phone: Left renal middle parenchyma RI 0.81 [facility] Work Phone: Left renal origin EDV 27.6 cm/s [facility] Work Phone: Left renal origin PSV 141.6 cm/s [facility] Work Phone: Left renal origin RAR 0.93 [facility] Work Phone: Left renal prox EDV 27.6 cm/s [facility] Work Phone: Left renal prox PSV 110.9 cm/s [facility] Work Phone: Left renal prox RAR 0.73 [facility] Work Phone: Left Renal Prox RI 0.75 [facility] Work Phone: Left Renal RAR 0.93 [facility] Work Phone: Left Segmental Renal Artery EDV 2.7 cm/s [facility] Work Phone: Left Segmental Renal Artery PSV 14.0 cm/s [facility] Work Phone: Left Segmental Renal Artery RI 0.81 [facility] Work Phone: Right Arcuate Renal Artery EDV 2.3 cm/s [facility] Work Phone: Right Arcuate Renal Artery PSV 10.7 cm/s [facility] Work Phone: Right Arcuate Renal Artery RI 0.79 [facility] Work Phone: Right kidney length 9.[address] [facility] Work Phone: Right renal dist EDV 12.9 cm/s [facility] Work Phone: Right renal dist PSV 105.0 cm/s [facility] [employer] Work Phone: [phone] Right renal dist RAR 0.69 [facility] [employer] Work Phone: [phone] Right Renal Dist RI 0.88 [facility] [employer] Work Phone: [phone] Right renal mid EDV 10.1 cm/s [facility] [employer] Work Phone: [phone] Right renal mid PSV 122.0 cm/s [facility] [employer] Work Phone: [phone] Right renal mid RAR 0.80 [facility] [employer] Work Phone: [phone] Right Renal Mid RI 0.92 [facility] [employer] Work Phone: [phone] Right renal middle parenchyma EDV 3.5 cm/s [facility] [employer] Work Phone: [phone] Right renal middle parenchyma PSV 24.2 cm/s [facility] [employer] Work Phone: [phone] Right renal middle parenchyma RI 0.86 [facility] [employer] Work Phone: [phone] Right Renal RAR 0.80 [facility] Work Phone: [phone] Right Renal Segmental Accel Time 0.03 s [facility] [employer] Work Phone: [phone] Right Segmental Renal Artery EDV 3.5 cm/s [facility] [employer] Work Phone: [phone] Right Segmental Renal Artery PSV 24.2 cm/s [facility] [employer] Phone: [phone] Right Segmental Renal Artery RI 0.86 [facility] [employer] Work Phone: No Panel Informationon 04-25 Significantly [...] other means of evaluation if clinically indicated. [employer] Serv[employer] Details A arteaga scale, color Doppler imaging [...] US Retroperitoneumon 024 Radiology Study observation (narrative) [facility] US renal artery dup fanny completeOrdered By: Judy Tejada on 04-25-2024 Left renal dist PSV 77 cm/s [facility] Work Phone: Left renal dist RAR 0.5 [facility] Phone: Left renal middle parenchyma PSV 14 cm/s [facility] Phone: Left Segmental Renal Artery PSV 14 cm/s [facility] Work Phone: Right renal dist PSV 105 cm/s [place] [employer] Work Phone: Right renal mid PSV 122 cm/s [employer] Phone: Right renal mid RAR 0.8 [facility] Work Phone: Right Renal RAR 0.8 [facility] [employer] [facility] Work Phone: [phone] 04-19-2024 36 Normal [facility] [employer] [facility] Progress Noteon 04-18-2024 Progress Note Good news. Her aortic valve stenosis is not severe, moderate. Her LV systolic functions is still normal. As long as she is feeling okay we can simply follow this. Normal [facility] US Heart TransthoracicOrdere d By: Huy Frederick on 04-18-2024 Ao Root Index 1.39 cm/m2 [facility] Work Phone: Aortic Root 2.7 cm [facility] Work Phone: Aortic Sinus Valsalva 2.7 cm [facility] Work Phone: Aortic Sinus Valsalva Index 1.39 cm/m2 [facility] Work Phone: Ascending Aorta 3.[address] [facility] Work Phone: Ascending Aorta Index 1.86 cm/m2 [facility] Work Phone: AV Area by Peak Velocity 1.3 cm2 [facility] Work Phone: AV Area by VTI 1.2 cm2 [facility] Work Phone: AV Mean Gradient [address] [facility] Work Phone: AV Mean Velocity 2.4 m/s [facility] [facility] al[facility] Work Phone: AV Peak Gradient [address] [facility] Work Phone: AV Peak Velocity 3.3 m/s [facility] Work Phone: AV Velocity Ratio 0.27 [facility] Work Phone: AV VTI 86.3 cm [facility] Work Phone: VINH/BSA Peak Velocity 0.7 cm2/m2 [facility] Work Phone: VINH/BSA VTI 0.6 cm2/m2 [facility] Work Phone: E/E' Lateral 12.44 [facility] Work Phone: E/E' Ratio (Averaged) 14.22 [facility] Work Phone: E/E' Septal 16.00 [facility] Work Phone: EF BP 63 % 55 - 100 % [facility] Work Phone: Fractional Shortening 2D 32 % 28 - 44 % [facility] [employer] Work Phone: [phone] Interpretation and review of laboratory results Abnormal [facility] Work Phone: [phone] IVC Diameter 1.7 cm [facility] [employer] Work Phone: [phone] IVSd 0.8 cm 0.6 - 0.9 cm [facility] Work Phone: [phone] LA Diameter 4.7 cm [facility] [employer] Work Phone: [phone] LA Size Index 2.42 cm/m2 [facility] Work Phone: [phone] LA Volume 2C 68 mL Abnormal 22 - 52 mL [facility] [employer] Work Phone: [phone] LA Volume 4C 89 mL Abnormal 22 - 52 mL [facility] [employer] Work Phone: LA Volume A/L 89 mL [facility] Work Phone: [phone] LA Volume BP 83 mL Abnormal 22 - 52 mL [facility] [employer] Work Phone: [phone] LA Volume Index 2C 35 mL/m2 Abnormal 16 - 34 mL/m2 [facility] [employer] Work Phone: [phone] LA Volume Index 4C 46 mL/m2 Abnormal 16 - 34 mL/m2 [facility] [employer] Work Phone: LA Volume Index A/L 46 mL/m2 16 - 34 mL/m2 [facility] [employer] Work Phone: LA Volume Index BP 43 ml/m2 Abnormal 16 - 34 ml/m2 [facility] [employer] Work Phone: LA/AO Root Ratio 1.74 [facility] Work Phone: [phone] LV E' Lateral Velocity 9 cm/s [facility] Work Phone: [phone] LV E' Septal Velocity 7 cm/s [facility] Work Phone: LV EDV A2C 114 mL [facility] [employer] Work Phone: [phone] LV EDV A4C 102 mL [facility] [employer] Work Phone: [phone] LV EDV BP 108 mL Abnormal 56 - 104 mL [facility] Work Phone: LV EDV Index A2C [...] Work Phone: LV ESV A4C [address] [facility] Work Phone: LV ESV BP 39 mL 19 - [address] [facility] Work Phone: LV ESV Index A2C 16 mL/m2 [facility] Work Phone: LV ESV Index A4C 25 mL/m2 [facility] Work Phone: LV ESV Index BP 20 mL/m2 [facility] Work Phone: LV Mass 2D 187.3 g Abnormal 67 - [address] [facility] Work Phone: LV Mass 2D Index 96.5 g/m2 Abnormal 43 - 95 g/m2 [facility] Work Phone: LV RWT Ratio 0.42 [facility] Work Phone: LVIDd 5.3 cm 3.9 - 5.[address] [facility] Work Phone: LVIDd Index 2.73 cm/m2 [facility] Work Phone: LVIDs 3.[address] [facility] Work Phone: LVIDs Index 1.86 cm/m2 [facility] Work Phone: LVOT Area 4.[address] [facility] Work Phone: LVOT Cardiac Output 7.3 liter/mi nut e [facility] Work Phone: LVOT Diameter 2.5 cm [facility]alt [facility] Work Phone: LVOT Mean Gradient 2 mmHg [facility] Work Phone: [phone] LVOT Peak Gradient [address] [facility] Work Phone: [phone] LVOT Peak Velocity 0.9 m/s [facility] Work Phone: [phone] LVOT Stroke Volume Index 54.6 mL/m2 [facility] Work Phone: [phone] LVOT SV 106.0 ml [facility] Work Phone: [phone] LVOT VTI 21.6 cm [facility] Work Phone: [phone] LVOT:AV VTI Index 0.25 [facility] ealth Work Phone: [phone] LVPWd 1.1 cm Abnormal 0.6 - 0.9 cm [facility] Work Phone: [phone] MV A Velocity 0.81 m/s [facility]alt [facility] Work Phone: MV E Velocity 1.12 m/s [facility]alt [facility] Work Phone: MV E Wave Deceleration Time 215.5 ms [facility] Work Phone: MV E/A 1.38 [facility] Work Phone: Pulmonary Artery EDP [address] [facility] Work Phone: RA Area 4C 70.6 mL [facility] Work Phone: RA Area 4C 68.3 mL [facility] Work Phone: RV Basal Dimension 4.6 cm [facility] Work Phone: RV Free Wall Peak S' 7 cm/s [facility] Work Phone: [phone] RV Mid Dimension 3.5 cm [facility] Work Phone: [phone] TAPSE 1.4 cm Abnormal 1.[address] [facility] Work Phone: TR Max Velocity 3.01 m/s [facility] l[facility] Work Phone: TR Peak Gradient 36 mmHg [facility] Work Phone: [facility] Work Phone: US Heart Transthoracicon Left [...] Reviewed results and recommendations. She verbalized understanding. [facility] Progress Noteon 03-27-2024 Progress Note Looks good, a little better than previous creatinine. She should take the furosemide just as needed. Thank you [facility] 36on 03-21-2024 36 PC to patient. Reviewed PARESH recommendations. She verbalized understanding. [facility] 36 [facility] 36 [facility] CNOVon 03-16-2024 CNOV Office Visit (FPDOYL) MIKEL WINSTON ([id number]) 1945 F Date Time Provider Department 03/16/24 3:15 PM KOMAL COHN FPDOYL During your visit today, we recorded the following information about you: Pulse Blood pressure Weight Height 60/minute 120/52 88.9 kg 1.626 m Komal Cohn DO 03/20/2024 9:06 PM Signed [facility] [place] Komal Cohn DO [address] [place] [address] Date of Evaluation: 03/16/2024 Patient Name: Mikel [...] history is provided by the patient. No mash processing operator was used. Edema This is a new [...] TO ROSA (more content not included)... Normal [facility] (JULIENYL) MIKEL WINSTON ([id number]) 1945 F Date Time Provider Department 03/15/24 KOMAL COHN During your visit today, we recorded the following information about you: Sylvia Monroy 03/15/2024 11:19 AM Signed Pt's escort vehicle driver, Fernanda Keith called to request a handicap placcard. When signed, put in mail to the Pt. Komal Cervantes DO 03/15/2024 3:51 PM Signed Anrel Govea LPN 03/19/2024 10:09 AM Signed Please [...] type, unspecified site [M19.90] Order(s):PARKING FOR HANDICAPPED [[id number]] Order #: [id number] Prescriptions as of 03/22/2024 - sulfamethoxazole-tri methoprim [...] Status:Closed by NANETTE NELSON on 03/22/24 Normal [facility] 36on 03-14-2024 36 Called pharmacy to clarify lasix script, 80 mg daily for 3 days then daily as needed per cardiology office. Pharmacist read back script to me and confirmed this is correct. Normal [employer] [facility] Progress Noteon 03-14-2024 Progress Note Normal [facility] CNOVon 02-27-2024 CNOV Office Visit (FPDOYL) MIKEL WINSTON ([id number]) 1945 F Date Time Provider Department 02/27/24 [...] 2 business days post-discharge Summary Discharged from: [facility] Admit Date: 01/28/24 Admitted for: cellulitis of [...] Cmt: Sum (more content not included)... Normal [facility] CNPNon 02-15-2024 CNPN Telephone ([facility]) MIKEL WINSTON ([id number]) 1945 F Date Time Provider Department 02/15/24 KOMAL COHN [facility] During your visit today, we recorded [...] Encounter Status:Closed by KOMAL COHN on 02/16/24 [facility] CARECOORDon 02-03-2024 CARECOORD Patient Choice Patient Name: MIKEL WINSTON Date of : 1945 [facility] CARECOORDon 02-02-2024 CARECOORD Normal [facility] Normal [facility] Messaged GRAIN MANAGER to send dc packet to [facility]. . [facility] Discharge med list transmitted to [facility] via Careport per TCC request. 7000 previously completed in [facility]. Facility is aware [facility] CBC W Auto Differential pane l (Bld)on 02-02-2024 Basophils (Bld) [#/Vol] 0.1 10*3/uL 0.0 - 0.2 10*3/uL [facility] Basophils/100 WBC (Bld) 0.7 % 0.0 - 2.0 % [facility] Eosinophils (Bld) [#/Vol] 0.6 10*3/uL High 0. 0 - 0.5 10*3/uL [facility] Eosinophils/100 WBC (Bld) 6.7 % High 0.0 - 6.0 % [facility] Erythrocyte distribution width (RBC) [Ratio] 13.3 % 11.5 - 15.0 % [facility] Hematocrit (Bld) [Volume fraction] 35.7 % 35.0 - 47.0 % [facility] Hemoglobin (Bld) [Mass/Vol] 11.3 g/dL Low 11.7 - 16.0 g/dL [facility] Immature granulocytes (Bld) [#/Vol] 0.0 10*3/uL NINF - 0.1 10*3/uL [facility] Immature granulocytes/100 WBC (Bld) 0.4 % 0.0 - 2.0 % [facility] Interpretation and review of laboratory results Abnormal [facility] th Lymphocytes (Bld) [#/Vol] 1.3 10*3/uL 1. 0 - 4.3 10*3/uL [facility] Lymphocytes/100 WBC (Bld) 16.1 % 15 .0 - 45.0 % [facility] MCH (RBC) [Entitic mass] 31.6 pg 26. 0 - 34.0 pg [facility] MCHC (RBC) [Mass/Vol] 31.7 % 30.5 - 36.0 % [facility] MCV (RBC) [Entitic vol] 99.7 fL High 77.0 - 99.0 fL [facility] Monocytes (Bld) [#/Vol] 1.3 10*3/uL High 0.0 - 0.9 10*3/uL [facility] Monocytes/100 WBC (Bld) 15.1 % High 5.0 - 13.0 % [facility] Neutrophils (Bld) [#/Vol] 5.1 10*3/uL 1. 8 - 7.5 10*3/uL [facility] Neutrophils/100 WBC (Bld) 61.0 % 38 .0 - 82.0 % [facility] Nucleated RBC/100 WBC (Bld) [Ratio] 0.0 % [facility] Platelet mean volume (Bld) [Entitic vol] 11.8 fL 9.0 - 12.7 fL [facility] Platelets (Bld) [#/Vol] 146 10*3/uL 140 - 440 10*3/uL [facility] RBC (Bld) [#/Vol] 3.58 10*6/uL Low 3.80 - 5.2 0 10*6/uL [facility] WBC (Bld) [#/Vol] 8.3 10*3/uL 3.6 - 10.7 10*3/uL [facility] CBC WITH AUTO DIFFERENTIALon 02-02-2024 Basophils (Bld) [#/Vol] 0.1 10*3/uL Normal 0.0-0.2 [facility] Comment on above: Performed By: #### L [id number] ####Electromedical Equipment Technician: RUTH ANN OBREGONDavidSHELTON ([id number])[facility] (SBHLAB)[address] Basophils/100 WBC (Bld) 0.7 % Normal 0.0-2.0 [facility] Comment on above: Performed By: #### L [id number] ####Electromedical Equipment Technician: RUTH ANN OBREGONWILTON ([id number])[facility] (SBHLAB)[address] Eosinophils (Bld) [#/Vol] 0.6 10*3/uL High 0.0-0.5 [facility] Comment on above: Performed By: #### L [id number] ####Electromedical Equipment Technician: RUTH ANN YEMI ([id number])[facility] (SBHLAB)[address] Eosinophils/100 WBC (Bld) 6.7 % High 0.0-6.0 [facility] Comment on above: Performed By: #### L [id number] ####Electromedical Equipment Technician: RUTH ANN YEMI ([id number])[facility] (SBHLAB)[address] Erythrocyte distribution width (RBC) [Ratio] 13.3 % Normal 11.5-15.0 [facility] Comment on above: Performed By: #### L [id number] ####Electromedical Equipment Technician: RUTH ANN BRAGG ([id number])[facility] (SBHLAB)[address] Hematocrit (Bld) [Volume fraction] 35.7 % Normal 35.0-47.0 [facility] Comment on above: Performed By: #### L [id number] ####Electromedical Equipment Technician: RUTH ANN HERRONSHELTON ([id number])[facility] (SBHLAB)[address] Hemoglobin (Bld) [Mass/Vol] 11.3 g/dL Low 11.7-16.0 [facility] Comment on above: Performed By: #### L [id number] ####Electromedical Equipment Technician: RUTH ANN BRAGG ([id number])[facility] (SBHLAB)[address] IMMATURE GRANS % 0.4 % Normal 0.0-2.0 [facility] Comment on above: Performed By: #### L [id number] ####Electromedical Equipment Technician: RUTH ANN BRAGG ([id number])[facility] (SBHLAB)[address] IMMATURE GRANS ABSOLUTE 0.0 10*3/uL Normal <0.1 [facility] Comment on above: Performed By: #### L [id number] ####Electromedical Equipment Technician: RUTH ANN BRAGG ([id number])[facility] (SBHLAB)[address] [place] [address] Lymphocytes (Bld) [#/Vol] 1.3 10*3/uL Normal 1.0-4.3 [facility] Comment on above: Performed By: #### L [id number] ####Electromedical Equipment Technician: RUTH ANN BRAGG ([id number])[facility] (SBAB)[address] Lymphocytes/100 WBC (Bld) 16.1 % Normal 15.0-45.0 [facility] Comment on above: Performed By: #### L [id number] ####Electromedical Equipment Technician: RUTH ANN BRAGG ([id number])[facility] (SBHLAB)[address] MCH (RBC) [Entitic mass] 31.6 pg Normal 26.0-34.0 [facility] Comment on above: Performed By: #### L [id number] ####Electromedical Equipment Technician: RUTH ANN BRAGG ([id number])[facility] ([facility])[address] MCHC 31.7 % Normal 30.5-36.0 [facility] Comment on above: Performed By: #### L [id number] ####Electromedical Equipment Technician: RUTH ANN BRAGG ([id number])[facility] (SBHLAB)[address] MCV (RBC) [Entitic vol] 99.7 fL High 77.0-99.0 [facility] Comment on above: Performed By: #### L [id number] ####Electromedical Equipment Technician: RUTH ANN BRAGG ([id number])[facility] (SBHLAB)[address] Monocytes (Bld) [#/Vol] 1.3 10*3/uL High 0.0-0.9 [facility] Comment on above: Performed By: #### L [id number] ####Electromedical Equipment Technician: RUTH ANN BRAGG ([id number])[facility] [place] (SBHLAB)[address] Monocytes/100 WBC (Bld) 15.1 % High 5.0-13.0 [facility] Comment on above: Performed By: #### L [id number] ####Electromedical Equipment Technician: RUTH ANN BRAGG ([id number])[facility] (SBHLAB)[address] NEUTROPHILS ABSOLUTE 5.1 10*3/uL Normal 1.8-7.5 [facility] Comment on above: Performed By: #### L [id number] ####Electromedical Equipment Technician: RUTH ANN BRAGG ([id number])[facility] [place] (SBHLAB)[address] Neutrophils/100 WBC (Bld) 61.0 % Normal 38.0-82.0 [facility] Comment on above: Performed By: #### L [id number] ####Electromedical Equipment Technician: RUTH ANN BRAGG ([id number])[facility] [place] (SB[facility]AB)[address] NRBC 0.0 /100 WBCs Normal 0.0-2.0 [facility] Comment on above: Performed By: #### L [id number] ####Electromedical Equipment Technician: RUTH ANN BRAGG ([id number])[facility] SANDERSOmi (SBHLAB)[address] Platelet mean volume (Bld) [Entitic vol] 11.8 fL Normal 9.0-12.7 [facility] Comment on above: Performed By: #### L [id number] ####Electromedical Equipment Technician: RUTH ANN BRAGG ([id number])[facility] (SBHLAB)[address] Platelets (Bld) [#/Vol] 146 10*3/uL Normal 140-440 [facility] Comment on above: Performed By: #### L [id number] ####Electromedical Equipment Technician: RUTH ANN HERRONSHELTON ([id number])[facility] (SBHLAB)[address] RBC (Bld) [#/Vol] 3.58 10*6/uL Low 3.80-5.20 [facility] Comment on above: Performed By: #### L [id number] ####Electromedical Equipment Technician: RUTH ANN BRAGG ([id number])[facility] (SBHLAB)[address] WBC (Bld) [#/Vol] 8.3 10*3/uL Normal 3.6-10.7 [facility] Comment on above: Performed By: #### L [id number] ####Electromedical Equipment Technician: RUTH ANN BRAGG ([id number])[facility] (SBHLAB)[address] COMPREHENSIVE METABOLIC PANE Smith 02-02-2024 Albumin [Mass/Vol] 3.4 g/dL Low 3.5-5.0 [facility] Comment on above: Performed By: #### L [id number] ####Electromedical Equipment Technician: RUTH ANN BRAGG ([id number])[facility] (SBHLAB)[address] ALP [Catalytic activity/Vol] 105 U/L Normal 38-126 [facility] Comment on above: Performed By: #### L [id number] ####Electromedical Equipment Technician: RUTH ANN BRAGG ([id number])[facility] (SBHLAB)[address] ALT [Catalytic activity/Vol] 26 U/L Normal 0-34 [facility] Comment on above: Performed By: #### L AB17 ####Electromedical Equipment Technician: RUTH ANN HERRONSHELTON ([id number])[facility] (SBHLAB)[address] Anion gap [Moles/Vol] 10 mmol/L Normal 3-13 [facility] Comment on above: Performed By: #### L [id number] ####Electromedical Equipment Technician: RUTH ANN PRITCHARDCER ([id number])[facility] [place] (SBHLAB)[address] AST [Catalytic activity/Vol] 44 U/L Normal 15-46 [facility] Comment on above: Performed By: #### L [id number] ####Electromedical Equipment Technician: RUTH ANN BRAGG ([id number])[facility] [place] (SBHL[facility])[address] Bilirubin [Mass/Vol] 1.0 mg/dL Normal 0.2-1.3 [facility] Comment on above: Performed By: #### L [id number] ####Electromedical Equipment Technician: RUTH ANN BRAGG ([id number])[facility] [place] (SBHLAB)[address] Calcium [Mass/Vol] 8.8 mg/dL Normal 8.4-10.4 [facility] Comment on above: Performed By: #### L [id number] ####Electromedical Equipment Technician: RUTH ANN BRAGG ([id number])[facility] [place] (SBHLAB)[address] [place] [address] [place] Chloride [Moles/Vol] 102 mmol/L Normal 98-107 [facility] Comment on above: Performed By: #### L [id number] ####Electromedical Equipment Technician: RUTH ANN BRAGG ([id number])[facility] [place] (SB[facility]AB)[address] CO2 [Moles/Vol] 22 mmol/L Normal 22-30 [facility] Comment on above: Performed By: #### L [id number] ####Electromedical Equipment Technician: RUTH ANN BRAGG ([id number])[facility]N (SBHLAB)[address] Creatinine [Mass/Vol] 1.66 mg/dL High 0.52-1.04 [facility] Comment on above: Performed By: #### L [id number] ####Electromedical Equipment Technician: RUTH ANN BRAGG ([id number])[facility]N (SBHLAB)[address] GLOMERULAR FILTRATION RATE ML/MIN/1.73 SQ M.PREDICTED 31.5 mL/min/1.73m*2 Low >60.0 [facility] Comment on above: Result Comment: Calc ulation based on the Chronic Kidney Disease Epidemiology Collaboration (CKD-EPI) equation refit without adjustment for race Performed By: #### L [id number] ####Electromedical Equipment Technician: RUTH ANN BRAGG ([id number])[facility] (SBHLAB)[address] Glucose [Mass/Vol] 120 mg/dL High 70-100 [facility] Comment on above: Performed By: #### L [id number] ####Electromedical Equipment Technician: RUTH ANN BRAGG ([id number])[facility] (SBHLAB)[address] [place] [address] [place] Potassium [Moles/Vol] 4.5 mmol/L Normal 3.5-5.1 [facility] Comment on above: Performed By: #### L [id number] ####Electromedical Equipment Technician: RUTH ANN BRAGG ([id number])[facility] (SBHLAB)[address] Protein [Mass/Vol] 7.0 g/dL Normal 6.3-8.2 [facility] Comment on above: Performed By: #### L [id number] ####Electromedical Equipment Technician: RUTH ANN BRAGG ([id number])[facility] (SBHLAB)[address] Sodium [Moles/Vol] 134 mmol/L Low 135-145 [facility] Comment on above: Performed By: #### L [id number] ####Electromedical Equipment Technician: RUTH ANN BRAGG ([id number])[facility] (SBHLAB)[address] Urea nitrogen [Mass/Vol] 34 mg/dL High 7-17 [facility] Comment on above: Performed By: #### L [id number] ####Electromedical Equipment Technician: RUTH ANN BRAGG ([id number])[facility] (SB[facility])[address] Comprehensive metabolic 1998 panelon 02-02-2024 Albumin [Mass/Vol] 3.4 g/dL Low 3.5 - 5.0 g/dL [facility] ALP [Catalytic activity/Vol] 105 U/L 38 - 126 U/L [facility] ALT [Catalytic activity/Vol] 26 U/L 0 - 34 U/L [facility] Anion gap [Moles/Vol] 10 mmol/L 3 - 13 mmol/L [facility] AST [Catalytic activity/Vol] 44 U/L 15 - 46 U/L [facility] Bilirubin [Mass/Vol] 1.0 mg/dL 0.2 - 1 .3 mg/dL [facility] Calcium [Mass/Vol] 8.8 mg/dL 8.4 - 10. 4 mg/dL [facility] Chloride [Moles/Vol] 102 mmol/L 98 - 10 7 mmol/L [facility] CO2 [Moles/Vol] 22 mmol/L 22 - 30 mmol/L [facility] Creatinine [Mass/Vol] 1.66 mg/dL High 0.52 - 1.04 mg/dL [facility] GFR/1.73 sq M.predicted MDRD (S/P/Bld) [Vol rate/Area] 31.5 mL/min/{1.73_m2} Low - PINF [facility] Comment on above: Calculation based on the Chronic Kidney Disease Epidemiology Collaboration (CKD-EPI) equation refit without adjustment for race Glucose [Mass/Vol] 120 mg/dL High 70 - 100 mg/dL [facility] Interpretation and review of laboratory results Abnormal [facility] Potassium [Moles/Vol] 4.5 mmol/L 3.5 - 5.1 mmol/L [facility] Protein [Mass/Vol] 7.0 g/dL 6.3 - 8.2 g/dL [facility] Sodium [Moles/Vol] 134 mmol/L Low 135 - 145 mmol/L [facility] Urea nitrogen [Mass/Vol] 34 mg/dL High 7 - 17 mg/dL [facility] Laboratory - Chemistry and C hemistry - challengeon 02-02-2024 Glucose [Mass/Vol] 186 mg/dL High 70 - 100 mg/dL [facility] Glucose [Mass/Vol] 121 mg/dL High 70 - 100 mg/dL [facility] No Panel Informationon 02-01 Interpretation and review of laboratory results Abnormal [facility] Performed by: [facility], [address] [place] [address] CLIA ID: [id number] [facility] Interpretation and review of laboratory results Abnormal [facility] Performed by: [facility], [address] [place] [address] CLIA ID: [id number] [facility] Radiology Study observation (narrative) Marya Rosas alth Radiology Study observation (narrative) [facility] Nursing Noteon 02-02-2024 Nursing Note Report called to Mark at [facility]. Normal [facility] Progress Noteon 02-02-2024 Progress Note Normal [facility] Progress Note Normal [facility] CARECOORDon 02-01-2024 CARECOORD Did update patient that plan was to discharge to [facility] probably tomorrow. . Normal [facility] CARECOORD 7000 was entered into [facility] per TCC request. Facility is aware. Normal [facility] CARECOORD Tasked GRAIN MANAGER to complete 7000. Updated [facility] via careport that per attending, anticipate dc tomorrow. Per [facility] auth is good through 02/05. . Normal [facility] CBC W Auto Differential pane l (Bld)Ordered By: Jr Chase on 02-01-2024 Erythrocyte distribution width (RBC) [Ratio] 13.5 % 11.5 - 15.0 % [facility] Hematocrit (Bld) [Volume fraction] 30.2 % Low 35.0 - 47.0 % [facility] Hemoglobin (Bld) [Mass/Vol] 9.8 g/dL Low 11.7 - 16.0 g/dL [facility] MCH (RBC) [Entitic mass] 32.0 pg 26. 0 - 34.0 pg [facility] MCHC (RBC) [Mass/Vol] 32.5 % 30.5 - 36.0 % [facility] MCV (RBC) [Entitic vol] 98.7 fL 77.0 - 99.0 fL [facility] Platelet mean volume (Bld) [Entitic vol] 11.3 fL 9.0 - 12.7 fL [facility] Platelets (Bld) [#/Vol] 90 10*3/uL Low 140 - 440 10*3/uL [facility] RBC (Bld) [#/Vol] 3.06 10*6/uL Low 3.80 - 5.2 0 10*6/uL [facility] WBC (Bld) [#/Vol] 6.4 10*3/uL 3.6 - 10.7 10*3/uL [facility] CBC WITH AUTO DIFFERENTIALon 02-01-2024 Erythrocyte distribution width (RBC) [Ratio] 13.5 % Normal 11.5-15.0 [facility] Comment on above: Performed By: #### L [id number], [id number] ####Electromedical Equipment Technician: RUTH ANN BRAGG ([phone])[facility] [place] ([facility])[address] [place] [address] Hematocrit (Bld) [Volume fraction] 30.2 % Low 35.0-47.0 [facility] Comment on above: Performed By: #### L [id number], [id number] ####Electromedical Equipment Technician: RUTH ANN BRAGG ([phone])[facility] ([facility])[address] Hemoglobin (Bld) [Mass/Vol] 9.8 g/dL Low 11.7-16.0 [facility] Comment on above: Performed By: #### L [id number], [id number] ####Electromedical Equipment Technician: RUTH ANN YEMI ([phone])[facility] ([facility])[address] MCH (RBC) [Entitic mass] 32.0 pg Normal 26.0-34.0 [facility] Comment on above: Performed By: #### L [id number], [id number] ####Electromedical Equipment Technician: RUTH ANN OBREGONWILTON ([phone])[facility]ITAL[facility] ([facility] MCHC 32.5 % Normal 30.5-36.0 [facility] Comment on above: Performed By: #### L [id number], [id number] ####Electromedical Equipment Technician: RUTH ANN HERRONSHELTON ([phone])[facility] (SBHLAB)[address] MCV (RBC) [Entitic vol] 98.7 fL Normal 77.0-99.0 S [facility] Comment on above: Performed By: #### L [id number], [id number] ####Electromedical Equipment Technician: RUTH ANN BRAGG ([phone])[facility] (SBHLAB)[address] Platelet mean volume (Bld) [Entitic vol] 11.3 fL Normal 9.0-12.7 [facility] Comment on above: Performed By: #### L [id number], [id number] ####Electromedical Equipment Technician: RUTH ANN BRAGG ([phone])[facility] (SB[facility])[address] Platelets (Bld) [#/Vol] 90 10*3/uL Low 140-440 S [facility] Comment on above: Performed By: #### L [id number], [id number] ####Electromedical Equipment Technician: RUTH ANN BRAGG ([phone])[facility] (SB[facility])[address] RBC (Bld) [#/Vol] 3.06 10*6/uL Low 3.80-5.20 [facility] Comment on above: Performed By: #### L [id number], [id number] ####Electromedical Equipment Technician: RUTH ANN BRAGG ([phone])[facility] ([facility])[address] WBC (Bld) [#/Vol] 6.4 10*3/uL Normal 3.6-10.7 [facility] Comment on above: Performed By: #### L [id number], [id number] ####Electromedical Equipment Technician: RUTH ANN BRAGG ([phone])[facility] (SBHL[facility])[address] COMPREHENSIVE METABOLIC PANE Smith 02-01-2024 Albumin [Mass/Vol] 2.9 g/dL Low 3.5-5.0 [facility] Comment on above: Performed By: #### L [id number], [id number] ####Electromedical Equipment Technician: RUTH ANN BRAGG ([phone])[facility] (SBHL[facility])[address] ALP [Catalytic activity/Vol] 95 U/L Normal 38-126 [facility] Comment on above: Performed By: #### L [id number], [id number] ####Electromedical Equipment Technician: RUTH ANN BRAGG ([phone])[facility] ([facility])[address] ALT [Catalytic activity/Vol] 21 U/L Normal 0-34 [facility] Comment on above: Performed By: #### L [id number], [id number] ####Electromedical Equipment Technician: RUTH ANN BRAGG ([phone])[facility] (SB[facility])[address] Anion gap [Moles/Vol] 8 mmol/L Normal 3-13 [facility] Comment on above: Performed By: #### L [id number], [id number] ####Electromedical Equipment Technician: RUTH ANN BRAGG ([phone])[facility] [place] (SB[facility])[address] AST [Catalytic activity/Vol] 36 U/L Normal 15-46 [facility] Comment on above: Performed By: #### L AB17, [id number] ####Electromedical Equipment Technician: RUTH ANN BRAGG ([phone])[facility] [place] (SB[facility])[address] Bilirubin [Mass/Vol] 1.0 mg/dL Normal 0.2-1.3 [facility] Comment on above: Performed By: #### L AB17, [id number] ####Electromedical Equipment Technician: RUTH ANN BRAGG ([phone])[facility] [place] ([facility])[address] Calcium [Mass/Vol] 8.4 mg/dL Normal 8.4-10.4 [facility] Comment on above: Performed By: #### L AB17, [id number] ####Electromedical Equipment Technician: RUTH ANN BRAGG ([phone])[facility] [place] (SB[facility])[address] [place] [address] [place] Chloride [Moles/Vol] 104 mmol/L Normal 98-107 [facility] Comment on above: Performed By: #### L AB17, [id number] ####Electromedical Equipment Technician: RUTH ANN BRAGG ([phone])[facility] [place] (SB[facility])[address] [place] [address] [place] CO2 [Moles/Vol] 22 mmol/L Normal 22-30 [facility] Comment on above: Performed By: #### L AB17, [id number] ####Electromedical Equipment Technician: RUTH ANN BRAGG ([phone])[facility] [place] ([facility])[address] [place] [address] [place] Creatinine [Mass/Vol] 1.69 mg/dL High 0.52-1.04 [facility] Comment on above: Performed By: #### L AB17, [id number] ####Electromedical Equipment Technician: RUTH ANN BRAGG ([phone])[facility] [place] ([facility])[address] GLOMERULAR FILTRATION RATE ML/MIN/1.73 SQ M.PREDICTED 30.8 mL/min/1.73m*2 Low >60.0 [facility] Comment on above: Result Comment: Calc ulation based on the Chronic Kidney Disease Epidemiology Collaboration (CKD-EPI) equation refit without adjustment for race Performed By: #### L AB17, [id number] ####Electromedical Equipment Technician: RUTH ANN BRAGG ([phone])[facility] [place] ([facility])[address] Glucose [Mass/Vol] 107 mg/dL High 70-100 [facility] Comment on above: Performed By: #### L AB17, [id number] ####Electromedical Equipment Technician: RUTH ANN BRAGG ([phone])[facility] [place] ([facility])[address] Potassium [Moles/Vol] 3.8 mmol/L Normal 3.5-5.1 [facility] Comment on above: Performed By: #### L AB17, [id number] ####Electromedical Equipment Technician: RUTH ANN BRAGG ([phone])[facility] (SB[facility])[address] [place] [address] [place] Protein [Mass/Vol] 6.0 g/dL Low 6.3-8.2 [facility] Comment on above: Performed By: #### L AB17, [id number] ####Electromedical Equipment Technician: RUTH ANN BRAGG ([phone])[facility] [place] ([facility])[address] [place] [address] [place] Sodium [Moles/Vol] 135 mmol/L Normal 135-145 [facility] Comment on above: Performed By: #### L AB17, [id number] ####Electromedical Equipment Technician: RUTH ANN BRAGG ([phone])[facility] [place] ([facility])[address] Urea nitrogen [Mass/Vol] 34 mg/dL High 7-17 [facility] Comment on above: Performed By: #### L AB17, [id number] ####Electromedical Equipment Technician: RUTH ANN BRAGG ([phone])[facility] [place] ([facility])[address] Comprehensive metabolic 1998 panelon 02-01-2024 Albumin [Mass/Vol] 2.9 g/dL Low 3.5 - 5.0 g/dL [facility] ALP [Catalytic activity/Vol] 95 U/L 38 - 126 U/L [facility] ALT [Catalytic activity/Vol] 21 U/L 0 - 34 U/L [facility] Anion gap [Moles/Vol] 8 mmol/L 3 - 13 mmol/L [facility] AST [Catalytic activity/Vol] 36 U/L 15 - 46 U/L [facility] Bilirubin [Mass/Vol] 1.0 mg/dL 0.2 - 1 .3 mg/dL [facility] Calcium [Mass/Vol] 8.4 mg/dL 8.4 - 10. 4 mg/dL [facility] Chloride [Moles/Vol] 104 mmol/L 98 - 10 7 mmol/L [facility] CO2 [Moles/Vol] 22 mmol/L 22 - 30 mmol/L [facility] Creatinine [Mass/Vol] 1.69 mg/dL High 0.52 - 1.04 mg/dL [facility] GFR/1.73 sq M.predicted MDRD (S/P/Bld) [Vol rate/Area] 30.8 mL/min/{1.73_m2} Low - PINF [facility] Comment on above: Calculation based on the Chronic Kidney Disease Epidemiology Collaboration (CKD-EPI) equation refit without adjustment for race Glucose [Mass/Vol] 107 mg/dL High 70 - 100 mg/dL [facility] Interpretation and review of laboratory results Abnormal [facility] Potassium [Moles/Vol] 3.8 mmol/L 3.5 - 5.1 mmol/L [facility] Protein [Mass/Vol] 6.0 g/dL Low 6.3 - 8.2 g/dL [facility] Sodium [Moles/Vol] 135 mmol/L 135 - 145 mmol/L [facility] Urea nitrogen [Mass/Vol] 34 mg/dL High 7 - 17 mg/dL [facility] Laboratory - Chemistry and C hemistry - challengeon 02-01-2024 Glucose [Mass/Vol] 183 mg/dL High 70 - 100 mg/dL [facility] Glucose [Mass/Vol] 175 mg/dL High 70 - 100 mg/dL [facility] Glucose [Mass/Vol] 149 mg/dL High 70 - 100 mg/dL [facility] Glucose [Mass/Vol] 114 mg/dL High 70 - 100 mg/dL [facility] Magnesium [Mass/Vol] 2.2 mg/dL 1.6 - 2 .3 mg/dL [facility] Laboratory - Hematology and Cell countson 02-01-2024 Basophils (Bld) [#/Vol] 0.1 10*3/uL 0.0 - 0.2 10*3/uL [facility] Basophils/100 WBC (Bld) 1 % 0 - 2 % S [facility] [place] cells LM Ql (Bld) Slight Abnormal (none) [facility] Eosinophils (Bld) [#/Vol] 0.4 10*3/uL 0. 0 - 0.5 10*3/uL [facility] Eosinophils/100 WBC (Bld) 7 % High 0 - 6 % [facility] Lymphocytes (Bld) [#/Vol] 0.5 10*3/uL Low 1. 0 - 4.3 10*3/uL [facility] Lymphocytes/100 WBC (Bld) 8 % Low 15 - 45 % [facility] Monocytes (Bld) [#/Vol] 0.6 10*3/uL 0.0 - 0.9 10*3/uL [facility] Monocytes/100 WBC (Bld) 9 % 5 - 13 % [facility] Neutrophils (Bld) [#/Vol] 4.8 10*3/uL 1. 8 - 7.5 10*3/uL [facility] RBC morphology finding Nom (Bld) abnormal [facility] Segmented neutrophils/100 WBC (Bld) 75 % 38 - 82 % [facility] MAGNESIUMon 02-01-2024 Magnesium [Mass/Vol] 2.2 mg/dL Normal 1.6-2.3 [facility] Comment on above: Performed By: #### L [id number], [id number] ####Electromedical Equipment Technician: RUTH ANN BRAGG ([phone])[facility] [place] (SBHLAB)[address] [place] [address] [place] MANUAL DIFFERENTIAL (CELLAVI KRISTIAN)on 02-01-2024 BAND NEUTROPHILS TOTAL PER COUNTED LEUKOCYTES BY MANUAL COUNT Normal [facility] Comment on above: Performed By: #### L [id number], [id number] ####Electromedical Equipment Technician: RUTH ANN HERRONSHELTON ([phone])[facility] [place] (SB[facility])[address] [place] [address] [place] BASOPHILS (10*3/UL) IN BLOOD-CELLAVISION 0.1 10*3/uL Normal 0.0-0.2 [facility] Comment on above: Performed By: #### L [id number], [id number] ####Electromedical Equipment Technician: RUTH ANN OBREGONWILTON ([phone])[facility] [place] (SB[facility])[address] [place] [address] [place] BASOPHILS TOTAL PER COUNTED LEUKOCYTES BY MANUAL COUNT 1 Normal [facility] Comment on above: Performed By: #### L [id number], [id number] ####Electromedical Equipment Technician: RUTH ANN BRAGG ([phone])[facility] [place] (SB[facility])[address] [place] [address] [place] BASOPHILS/100 LEUKOCYTES IN BLOOD-CELLAVISION 1 % Normal 0-2 [facility] Comment on above: Performed By: #### L [id number], [id number] ####Electromedical Equipment Technician: RUTH ANN BRAGG ([phone])[facility] [place] ([facility])[address] [place] [address] [place] BLASTS TOTAL PER COUNTED LEUKOCYTES BY MANUAL COUNT Normal [facility] Comment on above: Performed By: #### L [id number], [id number] ####Electromedical Equipment Technician: RUTH ANN BRAGG ([phone])[facility] [place] ([facility])[address] [place] [address] [place] LIDA CELLS PRESENCE IN BLOOD BY LIGHT MICROSCOPY Slight Abnormal (none) [facility] Comment on above: Performed By: #### L [id number], [id number] ####Electromedical Equipment Technician: RUTH ANN OBREGONWILTON ([phone])[facility] [place] (SBHLAB)[address] [place] [address] [place] EOSINOPHILS (10*3/UL) IN BLOOD-CELLAVISION 0.4 10*3/uL Normal 0.0-0.5 [facility] Comment on above: Performed By: #### L [id number], [id number] ####Electromedical Equipment Technician: RUTH ANN OBREGONWILTON ([phone])[facility] [place] ([facility])[address] [place] [address] [place] EOSINOPHILS TOTAL PER COUNTED LEUKOCYTES BY MANUAL COUNT 7 High 0-1 [facility] Comment on above: Performed By: #### L [id number], [id number] ####Electromedical Equipment Technician: RUTH ANN OBREGONWILTON ([phone])[facility] [place] ([facility])[address] [place] [address] [place] EOSINOPHILS/100 LEUKOCYTES IN BLOOD-CELLAVISION 7 % High 0-6 [facility] Comment on above: Performed By: #### L [id number], [id number] ####Electromedical Equipment Technician: RUTH ANN OBREGONWILTON ([phone])[facility] [place] ([facility])[address] [place] [address] [place] LYMPHOCYTES (10*3/UL) IN BLOOD-CELLAVISION 0.5 10*3/uL Low 1.0-4.3 [facility] Comment on above: Performed By: #### L [id number], [id number] ####Electromedical Equipment Technician: RUTH ANN HERRONSHELTON ([phone])[facility] [place] (SB[facility])[address] [place] [address] [place] LYMPHOCYTES TOTAL PER COUNTED LEUKOCYTES BY MANUAL COUNT 8 Normal [facility] Comment on above: Performed By: #### L [id number], [id number] ####Electromedical Equipment Technician: RUTH ANN HERRONSHELTON ([phone])[facility] [place] ([facility])[address] [place] [address] [place] LYMPHOCYTES/100 LEUKOCYTES IN BLOOD-CELLAVISION 8 % Low 15-45 [facility] Comment on above: Performed By: #### L [id number], [id number] ####Electromedical Equipment Technician: RUTH ANN BRAGG ([phone])[facility] [place] (SBHLAB)[address] [place] [address] [place] METAMYELOCYTES TOTAL PER COUNTED LEUKOCYTES BY MANUAL COUNT Normal [facility] Comment on above: Performed By: #### L [id number], [id number] ####Electromedical Equipment Technician: RUTH ANN BRAGG ([phone])[facility] [place] ([facility])[address] [place] [address] [place] MONOCYTES (10*3/UL) IN BLOOD-CELLAVISION 0.6 10*3/uL Normal 0.0-0.9 [facility] Comment on above: Performed By: #### L [id number], [id number] ####Electromedical Equipment Technician: RUTH ANN BRAGG ([phone])[facility] [place] ([facility])[address] [place] [address] [place] MONOCYTES TOTAL PER COUNTED LEUKOCYTES BY MANUAL COUNT 9 Normal [facility] Comment on above: Performed By: #### L [id number], [id number] ####Electromedical Equipment Technician: RUTH ANN BRAGG ([phone])[facility] [place] ([facility])[address] [place] [address] [place] MONOCYTES/100 LEUKOCYTES IN BLOOD-TOMMIE 9 % Normal 5-13 [facility] Comment on above: Performed By: #### L [id number], [id number] ####Electromedical Equipment Technician: RUTH ANN BRAGG ([phone])[facility] [place] ([facility])[address] [place] [address] [place] MYELOCYTES COUNTED BY MANUAL COUNT [facility] Comment on above: Performed By: #### L [id number], [id number] ####Electromedical Equipment Technician: RUTH ANN BRAGG ([phone])[facility] [place] ([facility])[address] [place] [address] [place] NEUTROPHILS TOTAL PER COUNTED LEUKOCYTES BY MANUAL COUNT 75 Normal [facility] Comment on above: Performed By: #### L [id number], [id number] ####Electromedical Equipment Technician: RUTH ANN BRAGG ([phone])[facility] [place] ([facility])[address] [place] [address] [place] PROMYELOCYTES TOTAL PER COUNTED LEUKOCYTES BY MANUAL COUNT Normal [facility] Comment on above: Performed By: #### L [id number], [id number] ####Electromedical Equipment Technician: RUTH ANN BRAGG ([phone])[facility] [place] ([facility])[address] [place] [address] [place] RBC MORPHOLOGY IN BLOOD abnormal Normal S [facility] Comment on above: Performed By: #### L [id number], [id number] ####Electromedical Equipment Technician: RUTH ANN BRAGG ([phone])[facility] [place] ([facility])[address] SEGMENTED NEUTROPHILS (10*3/UL) IN BLOOD-CELLAVISION 4.8 10*3/uL Normal 1.8-7.5 [facility] Comment on above: Performed By: #### L [id number], [id number] ####Electromedical Equipment Technician: RUTH ANN BRAGG ([phone])[facility] [place] ([facility])[address] [place] [address] [place] SEGMENTED NEUTROPHILS/100 LEUKOCYTES-CE 75 % Normal 38-82 [facility] Comment on above: Performed By: #### L [id number], [id number] ####Electromedical Equipment Technician: RUTH ANN BRAGG ([phone])[facility] [place] ([facility])[address] [place] [address] [place] UNCLASSIFIED CELLS TOTAL PER COUNTED LEUKOCYTES BY MANUAL COUNT Normal [facility] Comment on above: Performed By: #### L [id number], [id number] ####Electromedical Equipment Technician: RUTH ANN BRAGG ([phone])[facility] [place] ([facility])[address] [place] [address] [place] VARIANT LYMPHOCYTES TOTAL PER COUNTED LEUKOCYTES BY MANUAL COUNT Normal [facility] Comment on above: Performed By: #### L [id number], [id number] ####Electromedical Equipment Technician: RUTH ANN BRGAG ([phone])[facility] (SBHL[facility])[address] [place] [address] Magnesium [Mass/Vol]on 01-31 Interpretation and review of laboratory results [facility] No Panel Informationon 01-31 Interpretation and review of laboratory results Abnormal [facility] Performed by: [facility], [address] [place] [address] CLIA ID: [id number] [facility] Interpretation and review of laboratory results [facility]normal [facility] Performed by: [facility], [address] [place] [address] CLIA ID: [id number] [facility] Interpretation and review of laboratory results [facility]normal [facility] Performed by: [facility], [address] [place] [address] CLIA ID: [id number] [facility] Interpretation and review of laboratory results [facility]normal [facility] Performed by: [facility], [address] [place] [address] CLIA ID: [id number] [facility] Health Atypical Lymphocytes Manual [facility] Health Bands Manual [facility] Health Basophils Manual [address] [facility] Blasts Manual [facility] Eosin[facility] Manual 7 High 0 - 1 [facility] Health Lymphocytes Manual 8 [facility] Health Metamyelocytes Manual [facility] Health Monocytes Manual 9 [facility] He alth Myelocytes Manual [facility] ealth Neutrophils Manual 75 [facility] Promyelocytes Manual [facility] Unclassified Cells, Manual [facility] Health Radiology Study observation (narrative) [facility] Radiology Study observation (narrative) [facility] Radiology Study observation (narrative) [facility] Radiology Study observation (narrative) [facility] No Panel InformationOrdered By: Jr Chase on 02-01-2024 Interpretation and review of laboratory results Abnormal [facility] Progress Noteon 02-01-2024 Progress Note Normal [facility] Progress Note Normal [facility] Progress Note Normal [facility] [id number] 01-31-2024 [id number] Discharge plan is SNF. HCL to sign off. Please re-consult if needed. Normal [facility] Bacteria identified Cx Nom ( U)Ordered By: Farideh Aguilar on 01-31-2024 Interpretation and review of laboratory results Abnormal [facility] CARECOORDon 01-31-2024 [facility] Normal [facility] able to accept. Did request that they submit for insurance auth. . Normal [facility] CARECOHARPER WOODS Normal [facility] CBC W Auto Differential pane l (Bld)Ordered By: Kathya Dotson on 01-31-2024 Erythrocyte distribution width (RBC) [Ratio] 13.7 % 11.5 - 15.0 % [facility] Hematocrit (Bld) [Volume fraction] 28.7 % Low 35.0 - 47.0 % [facility] Hemoglobin (Bld) [Mass/Vol] 9.5 g/dL Low 11.7 - 16.0 g/dL [facility] Interpretation and review of laboratory results Abnormal [facility] IPF 4 [facility] MCH (RBC) [Entitic mass] 32.3 pg 26. 0 - 34.0 pg [facility] MCHC (RBC) [Mass/Vol] 33.1 % 30.5 - 36.0 % [facility] MCV (RBC) [Entitic vol] 97.6 fL 77.0 - 99.0 fL [facility] Platelet mean volume (Bld) [Entitic vol] 11.9 fL 9.0 - 12.7 fL [facility] Platelets (Bld) [#/Vol] 83 10*3/uL Low 140 - 440 10*3/uL [facility] RBC (Bld) [#/Vol] 2.94 10*6/uL Low 3.80 - 5.2 0 10*6/uL [facility] WBC (Bld) [#/Vol] 8.8 10*3/uL 3.6 - 10.7 10*3/uL [facility] CBC WITH AUTO DIFFERENTIALon 01-31-2024 Erythrocyte distribution width (RBC) [Ratio] 13.7 % Normal 11.5-15.0 [facility] Comment on above: Performed By: #### L [id number], [id number] ####Electromedical Equipment Technician: RUTH ANN YEMI ([phone])[facility] (SB[facility])[address] Hematocrit (Bld) [Volume fraction] 28.7 % Low 35.0-47.0 [facility] Comment on above: Performed By: #### L [id number], [id number] ####Electromedical Equipment Technician: RUTH ANN YEMI ([phone])[facility] [place] ([facility])[address] Hemoglobin (Bld) [Mass/Vol] 9.5 g/dL Low 11.7-16.0 [facility] Comment on above: Performed By: #### L [id number], [id number] ####Electromedical Equipment Technician: RUTH ANN YEMI ([phone])[facility] (SBHLAB)[address] IPF 4 Normal [facility] Comment on above: Performed By: #### L [id number], [id number] ####Electromedical Equipment Technician: RUTH ANN YEMI ([phone])[facility] [place] ([facility])[address] MCH (RBC) [Entitic mass] 32.3 pg Normal 26.0-34.0 [facility] Comment on above: Performed By: #### L [id number], [id number] ####Electromedical Equipment Technician: RUTH ANN OBREGONWILTON ([phone])[facility] (SBHL[facility])[address] MCHC 33.1 % Normal 30.5-36.0 [facility] Comment on above: Performed By: #### L [id number], [id number] ####Electromedical Equipment Technician: RUTH ANN HERRONSHELTON ([phone])[facility] ([facility])[address] MCV (RBC) [Entitic vol] 97.6 fL Normal 77.0-99.0 [facility] Comment on above: Performed By: #### L [id number], [id number] ####Electromedical Equipment Technician: RUTH ANN BRAGG ([phone])[facility] (SBHLAB)[address] Platelet mean volume (Bld) [Entitic vol] 11.9 fL Normal 9.0-12.7 [facility] Comment on above: Performed By: #### L [id number], [id number] ####Electromedical Equipment Technician: RUTH ANN BRAGG ([phone])[facility] [place] (SBHLAB)[address] Platelets (Bld) [#/Vol] 83 10*3/uL Low 140-440 S [facility] Comment on above: Performed By: #### L [id number], [id number] ####Electromedical Equipment Technician: RUTH ANN BRAGG ([phone])[facility] (SBHLAB)[address] RBC (Bld) [#/Vol] 2.94 10*6/uL Low 3.80-5.20 [facility] Comment on above: Performed By: #### L [id number], [id number] ####Electromedical Equipment Technician: RUTH ANN BRAGG ([phone])[facility]PITALRyan [facility] (SBHLAB)[address] WBC (Bld) [#/Vol] 8.8 10*3/uL Normal 3.6-10.7 [facility] Comment on above: Performed By: #### L [id number], [id number] ####Electromedical Equipment Technician: RUTH ANN BRAGG ([phone])[facility] (SBHLAB)[address] COMPREHENSIVE METABOLIC PANE Smith 01-31-2024 Albumin [Mass/Vol] 2.7 g/dL Low 3.5-5.0 [facility] Comment on above: Performed By: #### L [id number], [id number] ####Electromedical Equipment Technician: RUTH ANN BRAGG ([phone])[facility] [place] (SBHLAB)155 [place] [address] [place] ALP [Catalytic activity/Vol] 52 U/L Normal 38-126 [facility] Comment on above: Performed By: #### L [id number], LAB17 ####Electromedical Equipment Technician: RUTH ANN BRAGG ([phone])[facility] [place] (SBHLAB)[address] ALT [Catalytic activity/Vol] 19 U/L Normal 0-34 [facility] Comment on above: Performed By: #### L [id number], LAB17 ####Electromedical Equipment Technician: RUTH ANN BRAGG ([phone])[facility] [place] (SBHLAB)[address] Anion gap [Moles/Vol] 8 mmol/L Normal 3-13 [facility] Comment on above: Performed By: #### L [id number], LAB17 ####Electromedical Equipment Technician: RUTH ANN BRAGG ([phone])[facility] (SBHLAB)[address] AST [Catalytic activity/Vol] 32 U/L Normal 15-46 [facility] Comment on above: Performed By: #### L [id number], LAB17 ####Electromedical Equipment Technician: RUTH ANN BRAGG ([phone])[facility] [place] (SBHLAB)[address] Bilirubin [Mass/Vol] 1.3 mg/dL Normal 0.2-1.3 [facility] Comment on above: Performed By: #### L [id number], LAB17 ####Electromedical Equipment Technician: RUTH ANN BRAGG ([phone])[facility] [place] (SBHLAB)155 [place] [address] [place] Calcium [Mass/Vol] 8.7 mg/dL Normal 8.4-10.4 [facility] Comment on above: Performed By: #### L [id number], LAB17 ####Electromedical Equipment Technician: RUTH ANN BRAGG ([phone])[facility] (SB[facility]AB)155 [place] [address] [place] Chloride [Moles/Vol] 105 mmol/L Normal 98-107 [facility] Comment on above: Performed By: #### L [id number], LAB17 ####Electromedical Equipment Technician: RUTH ANN BRAGG ([phone])[facility] (SBHLAB)[address] CO2 [Moles/Vol] 23 mmol/L Normal 22-30 [facility] Comment on above: Performed By: #### L AB103, LAB17 ####Electromedical Equipment Technician: RUTH ANN BRAGG ([phone])[facility] (SBHLAB)[address] Creatinine [Mass/Vol] 1.62 mg/dL High 0.52-1.04 [facility] Comment on above: Performed By: #### L AB103, LAB17 ####Electromedical Equipment Technician: RUTH ANN BRAGG ([phone])[facility] (SBHLAB)[address] GLOMERULAR FILTRATION RATE ML/MIN/1.73 SQ M.PREDICTED 32.4 mL/min/1.73m*2 Low >60.0 [facility] Comment on above: Result Comment: Calc ulation based on the Chronic Kidney Disease Epidemiology Collaboration (CKD-EPI) equation refit without adjustment for race Performed By: #### L AB103, LAB17 ####Electromedical Equipment Technician: RUTH ANN BRAGG ([phone])[facility] (SBHLAB)[address] Glucose [Mass/Vol] 141 mg/dL High 70-100 [facility] Comment on above: Performed By: #### L AB103, LAB17 ####Electromedical Equipment Technician: RUTH ANN BRAGG ([phone])[facility] (SBHLAB)[address] Potassium [Moles/Vol] 3.2 mmol/L Low 3.5-5.1 [facility] Comment on above: Performed By: #### L AB103, LAB17 ####Electromedical Equipment Technician: RUTH ANN BRAGG ([phone])[facility] [place] (SBHLAB)[address] Protein [Mass/Vol] 5.8 g/dL Low 6.3-8.2 [facility] Comment on above: Performed By: #### L AB103, LAB17 ####Electromedical Equipment Technician: RUTH ANN PRITCHARDCER ([phone])[facility] [place] (SBHLAB)[address] Sodium [Moles/Vol] 136 mmol/L Normal 135-145 [facility] Comment on above: Performed By: #### L AB103, LAB17 ####Electromedical Equipment Technician: RUTH ANN OBREGONDavidSHELTON ([phone])[facility] [place] (SBHLAB)[address] Urea nitrogen [Mass/Vol] 26 mg/dL High 7-17 [facility] Comment on above: Performed By: #### L AB103, LAB17 ####Electromedical Equipment Technician: RUTH ANN HERRONSHELTON ([phone])[facility] [place] (SBHLAB)[address] Comprehensive metabolic 1998 panelon 01-31-2024 Albumin [Mass/Vol] 2.7 g/dL Low 3.5 - 5.0 g/dL [facility] ALP [Catalytic activity/Vol] 52 U/L 38 - 126 U/L [facility] ALT [Catalytic activity/Vol] 19 U/L 0 - 34 U/L [facility] Anion gap [Moles/Vol] 8 mmol/L 3 - 13 mmol/L [facility] AST [Catalytic activity/Vol] 32 U/L 15 - 46 U/L [facility] Bilirubin [Mass/Vol] 1.3 mg/dL 0.2 - 1 .3 mg/dL [facility] Calcium [Mass/Vol] 8.7 mg/dL 8.4 - 10. 4 mg/dL [facility] Chloride [Moles/Vol] 105 mmol/L 98 - 10 7 mmol/L [facility] CO2 [Moles/Vol] 23 mmol/L 22 - 30 mmol/L [facility] Creatinine [Mass/Vol] 1.62 mg/dL High 0.52 - 1.04 mg/dL [facility] GFR/1.73 sq M.predicted MDRD (S/P/Bld) [Vol rate/Area] 32.4 mL/min/{1.73_m2} Low - PINF [facility] Comment on above: Calculation based on the Chronic Kidney Disease Epidemiology Collaboration (CKD-EPI) equation refit without adjustment for race Glucose [Mass/Vol] 141 mg/dL High 70 - 100 mg/dL [facility] Interpretation and review of laboratory results Abnormal [facility] Potassium [Moles/Vol] 3.2 mmol/L Low 3.5 - 5.1 mmol/L [facility] Protein [Mass/Vol] 5.8 g/dL Low 6.3 - 8.2 g/dL [facility] Sodium [Moles/Vol] 136 mmol/L 135 - 145 mmol/L [facility] Urea nitrogen [Mass/Vol] 26 mg/dL High 7 - 17 mg/dL [facility] Consulton 01-31-2024 Consult Vancomycin therapy has been discontinued by Dr. Gonzalez on 01/30. Thank you for the consult. Pharmacy signing off for vancomycin dosing. Ginny Gramajo [facility], Date: 01/31/24 Time: 10:32 AM Normal [facility] IDNon 01-31-2024 IDN Normal [facility] Laboratory - Chemistry and C hemistry - challengeon 01-31-2024 Glucose [Mass/Vol] 216 mg/dL High 70 - 100 mg/dL [facility] Glucose [Mass/Vol] 155 mg/dL High 70 - 100 mg/dL [facility] Glucose [Mass/Vol] 203 mg/dL High 70 - 100 mg/dL [facility] Glucose [Mass/Vol] 148 mg/dL High 70 - 100 mg/dL [facility] Magnesium [Mass/Vol] 1.5 mg/dL Low 1.6 - 2 .3 mg/dL [facility] Laboratory - Hematology and Cell countson 01-31-2024 Basophils (Bld) [#/Vol] 0.1 10*3/uL 0.0 - 0.2 10*3/uL [facility] Basophils/100 WBC (Bld) 1 % 0 - 2 % [facility] Eosinophils (Bld) [#/Vol] 0.1 10*3/uL 0. 0 - 0.5 10*3/uL [facility] Eosinophils/100 WBC (Bld) 1 % 0 - 6 % [facility] Lymphocytes (Bld) [#/Vol] 0.5 10*3/uL Low 1. 0 - 4.3 10*3/uL [facility] Lymphocytes/100 WBC (Bld) 6 % Low 15 - 45 % [facility] Monocytes (Bld) [#/Vol] 0.9 10*3/uL 0.0 - 0.9 10*3/uL [facility] Monocytes/100 WBC (Bld) 10 % 5 - 13 % [facility] Neutrophils (Bld) [#/Vol] 7.2 10*3/uL 1. 8 - 7.5 10*3/uL [facility] RBC morphology finding Nom (Bld) Normal [facility] Segmented neutrophils/100 WBC (Bld) 82 % 38 - 82 % [facility] Laboratory - Microbiology an d Antimicrobial susceptibilityOrdered By: Farideh Aguilar on 01-31-2024 Bacteria identified Cx Nom (U) >100,000 CFU/mL Escherichia coli Abnormal [facility] MAGNESIUMon 01-31-2024 Magnesium [Mass/Vol] 1.5 mg/dL Low 1.6-2.3 [facility] Comment on above: Performed By: #### L AB103, LAB17 ####Electromedical Equipment Technician: RUTH ANN BRAGG ([phone])[facility] ([facility])[address] [place] [address] MANUAL DIFFERENTIAL (CELLAVI KRISTIAN)on 01-31-2024 BAND NEUTROPHILS TOTAL PER COUNTED LEUKOCYTES BY MANUAL COUNT Normal [facility] Comment on above: Performed By: #### L [id number], [id number] ####Electromedical Equipment Technician: RUTH ANN BRAGG ([phone])[facility] ([facility] [place] [address] BASOPHILS (10*3/UL) IN BLOOD-CELLAVISION 0.1 10*3/uL Normal 0.0-0.2 [facility] Comment on above: Performed By: #### L [id number], [id number] ####Electromedical Equipment Technician: RUTH ANN BRAGG ([phone])[facility] [place] (SBHLAB)[address] [place] [address] [place] BASOPHILS TOTAL PER COUNTED LEUKOCYTES BY MANUAL COUNT 1 Normal [facility] Comment on above: Performed By: #### L [id number], [id number] ####Electromedical Equipment Technician: RUTH ANN BRAGG ([phone])[facility] [place] (SBHLAB)155 [place] [address] [place] BASOPHILS/100 LEUKOCYTES IN BLOOD-CELLAVISION 1 % Normal 0-2 [facility] Comment on above: Performed By: #### L [id number], [id number] ####Electromedical Equipment Technician: RUTH ANN PRITCHARDCER ([id number])[facility] [place] (SBHLAB)[address] [place] [address] [place] BLASTS TOTAL PER COUNTED LEUKOCYTES BY MANUAL COUNT Normal [facility] Comment on above: Performed By: #### L [id number], [id number] ####Electromedical Equipment Technician: RUTH ANN PRITCHARDCER ([id number])[facility] [place] (SBHLAB)[address] [place] [address] [place] EOSINOPHILS (10*3/UL) IN BLOOD-CELLAVISION 0.1 10*3/uL Normal 0.0-0.5 [facility] Comment on above: Performed By: #### L [id number], [id number] ####Electromedical Equipment Technician: RUTH ANN BRAGG ([phone])[facility] [place] (SBHLAB)[address] [place] [address] [place] EOSINOPHILS TOTAL PER COUNTED LEUKOCYTES BY MANUAL COUNT 1 Normal 0-1 [facility] Comment on above: Performed By: #### L [id number], [id number] ####Electromedical Equipment Technician: RUTH ANN PRITCHARDCER ([phone])[facility] [place] (SBHLAB)[address] [place] [address] [place] EOSINOPHILS/100 LEUKOCYTES IN BLOOD-CELLAVISION 1 % Normal 0-6 [facility] Comment on above: Performed By: #### L [id number], [id number] ####Electromedical Equipment Technician: RUTH ANN BRAGG ([phone])[facility] [place] (SBHLAB)[address] [place] [address] [place] LYMPHOCYTES (10*3/UL) IN BLOOD-CELLAVISION 0.5 10*3/uL Low 1.0-4.3 [facility] Comment on above: Performed By: #### L [id number], [id number] ####Electromedical Equipment Technician: RUTH ANN BRAGG ([phone])[facility] [place] (SBHLAB)[address] [place] [address] [place] LYMPHOCYTES TOTAL PER COUNTED LEUKOCYTES BY MANUAL COUNT 6 Normal [facility] Comment on above: Performed By: #### L [id number], [id number] ####Electromedical Equipment Technician: RUTH ANN BRAGG ([id number])[facility] [place] (SBHLAB)155 [place] [address] [place] LYMPHOCYTES/100 LEUKOCYTES IN BLOOD-CELLAVISION 6 % Low 15-45 [facility] Comment on above: Performed By: #### L [id number], [id number] ####Electromedical Equipment Technician: RUTH ANN BRAGG ([id number])[facility] [place] (SBHLAB)[address] [place] [address] [place] METAMYELOCYTES TOTAL PER COUNTED LEUKOCYTES BY MANUAL COUNT Normal [facility] Comment on above: Performed By: #### L [id number], [id number] ####Electromedical Equipment Technician: RUTH ANN BRAGG ([phone])[facility] [place] (SBHLAB)[address] [place] [address] [place] MONOCYTES (10*3/UL) IN BLOOD-CELLAVISION 0.9 10*3/uL Normal 0.0-0.9 [facility] Comment on above: Performed By: #### L [id number], [id number] ####Electromedical Equipment Technician: RUTH ANN BRAGG ([phone])[facility] [place] (SBHLAB)[address] [place] [address] [place] MONOCYTES TOTAL PER COUNTED LEUKOCYTES BY MANUAL COUNT 10 Normal [facility] Comment on above: Performed By: #### L [id number], [id number] ####Electromedical Equipment Technician: RUTH ANN [phone])[facility] [place] (SBHLAB)[address] [place] [address] [place] MONOCYTES/100 LEUKOCYTES IN BLOOD-TOMMIE 10 % Normal 5-13 [facility] Comment on above: Performed By: #### L [id number], [id number] ####Electromedical Equipment Technician: RUTH ANN BRAGG ([phone])[facility] [place] (SBHLAB)[address] [place] [address] [place] MYELOCYTES COUNTED BY MANUAL COUNT [facility] Comment on above: Performed By: #### L [id number], [id number] ####Electromedical Equipment Technician: RUTH ANN BRAGG ([id number])[facility] [place] (SBHLAB)[address] NEUTROPHILS TOTAL PER COUNTED LEUKOCYTES BY MANUAL COUNT 84 [facility] Comment on above: Performed By: #### L [id number], [id number] ####Electromedical Equipment Technician: RUTH ANN BRAGG ([id number])[facility] [place] (SBHLAB)[address] PROMYELOCYTES TOTAL PER COUNTED LEUKOCYTES BY MANUAL COUNT [facility] Comment on above: Performed By: #### L [id number], [id number] ####Electromedical Equipment Technician: RUTH ANN BRAGG ([phone])[facility] [place] (SBHLAB)[address] [place] [address] [place] RBC MORPHOLOGY IN BLOOD Normal Normal [facility] Comment on above: Performed By: #### L [id number], [id number] ####Electromedical Equipment Technician: RUTH ANN BRAGG ([phone])[facility] [place] (SBHLAB)[address] [place] [address] [place] SEGMENTED NEUTROPHILS (10*3/UL) IN BLOOD-CELLAVISION 7.2 10*3/uL Normal 1.8-7.5 [facility] Comment on above: Performed By: #### L [id number], [id number] ####Electromedical Equipment Technician: RUTH ANN BRAGG ([phone])[facility] [place] (SBHLAB)[address] SEGMENTED NEUTROPHILS/100 LEUKOCYTES-CE 82 % Normal 38-82 [facility] Comment on above: Performed By: #### L [id number], [id number] ####Electromedical Equipment Technician: RUTH ANN BRAGG ([phone])[facility] (SBHLAB)[address] UNCLASSIFIED CELLS TOTAL PER COUNTED LEUKOCYTES BY MANUAL COUNT Normal [facility] Comment on above: Performed By: #### L [id number], [id number] ####Electromedical Equipment Technician: RUTH ANN BRAGG ([phone])[facility] (SBHLAB)[address] VARIANT LYMPHOCYTES TOTAL PER COUNTED LEUKOCYTES BY MANUAL COUNT Normal [facility] Comment on above: Performed By: #### L [id number], [id number] ####Electromedical Equipment Technician: RUTH ANN BRAGG ([phone])[facility] (SBHLAB)[address] [place] [address] Magnesium [Mass/Vol]on 01-30 Interpretation and review of laboratory results [facility]normal [facility] No Panel Informationon 01-30 Interpretation and review of laboratory results Abnormal [facility] Performed by: [facility], [address] [place] [address] CLIA ID: [id number] [facility] Health Interpretation and review of laboratory results Abnormal [facility] Performed by: [facility], [address] [place] [address] CLIA ID: [id number] [facility] Health Interpretation and review of laboratory results Abnormal [facility] th Performed by: [facility], [address] [place] [address] CLIA ID: [id number] [facility] Health Interpretation and review of laboratory results Abnormal [facility] Performed by: [facility], [address] [place] [address] CLIA ID: [id number] [facility] Atypical Lymphocytes Manual [facility] Bands Manual [facility] Basophils Manual 1 [facility] Blasts Manual [facility] Eosinophils Manual 1 0 - 1 [facility] Interpretation and review of laboratory results Abnormal [facility] Lymphocytes Manual 6 [facility] Metamyelocytes Manual [facility] Monocytes Manual 10 [facility] alth Myelocytes Manual [facility] ealth Neutrophils Manual 84 [facility] Promyelocytes Manual [facility] Unclassified Cells, Manual [facility] Radiology Study observation (narrative) [facility] Radiology Study observation (narrative) [facility] Radiology Study observation (narrative) [facility] Rad[facility] Study [facility] (narrative) [facility] Progress Noteon 01-31-[address] [facility] Progress Note Normal [facility] Progress [facility] Normal [facility] Progress Note Normal 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 Normal [facility] CARECOORDon 01-30-2024 CARECOORD Continuing to await therapy evals and recommendations. Normal [facility] CARECOORD Normal [facility] CBC W Auto Differential pane l (Bld)Ordered By: Osiel White on 01-30-2024 Erythrocyte distribution width (RBC) [Ratio] 13.9 % 11.5 - 15.0 % [facility] Hematocrit (Bld) [Volume fraction] 31.6 % Low 35.0 - 47.0 % [facility] Hemoglobin (Bld) [Mass/Vol] 10.1 g/dL Low 11.7 - 16.0 g/dL [facility] Interpretation and review of laboratory results Abnormal [facility] th IPF 4 [facility] MCH (RBC) [Entitic mass] 31.9 pg 26. 0 - 34.0 pg [facility] MCHC (RBC) [Mass/Vol] 32.0 % 30.5 - 36.0 % [facility] MCV (RBC) [Entitic vol] 99.7 fL High 77.0 - 99.0 fL [facility] Platelet mean volume (Bld) [Entitic vol] 11.8 fL 9.0 - 12.7 fL [facility] Platelets (Bld) [#/Vol] 81 10*3/uL Low 140 - 440 10*3/uL [facility] RBC (Bld) [#/Vol] 3.17 10*6/uL Low 3.80 - 5.2 0 10*6/uL [facility] WBC (Bld) [#/Vol] 6.2 10*3/uL 3.6 - 10.7 10*3/uL [facility] CBC WITH AUTO DIFFERENTIALon 01-30-2024 Erythrocyte distribution width (RBC) [Ratio] 13.9 % Normal 11.5-15.0 [facility] Comment on above: Performed By: #### L [id number] ####Electromedical Equipment Technician: RUTH ANN BRAGG ([phone])[facility] (SBHLAB)[address] [place] [address] Hematocrit (Bld) [Volume fraction] 31.6 % Low 35.0-47.0 [facility] Comment on above: Performed By: #### L [id number] ####Electromedical Equipment Technician: RUTH ANN BRAGG ([phone])[facility] ([facility])[address] [place] [address] Hemoglobin (Bld) [Mass/Vol] 10.1 g/dL Low 11.7-16.0 [facility] Comment on above: Performed By: #### L [id number] ####Electromedical Equipment Technician: RUTH ANN BRAGG ([phone])[facility] [place] (SBHLAB)[address] [place] [address] IPF 4 Normal [facility] Comment on above: Performed By: #### L [id number] ####Electromedical Equipment Technician: RUTH ANN BRAGG ([phone])[facility] [place] (SB[facility])[address] [place] [address] MCH (RBC) [Entitic mass] 31.9 pg Normal 26.0-34.0 [facility] Comment on above: Performed By: #### L [id number] ####Electromedical Equipment Technician: RUTH ANN BRAGG ([phone])[facility] [place] (SBHLAB)[address] MCHC 32.0 % Normal 30.5-36.0 [facility] Comment on above: Performed By: #### L [id number] ####Electromedical Equipment Technician: RUTH ANN BRAGG ([phone])[facility] [place] (SBHLAB)[address] MCV (RBC) [Entitic vol] 99.7 fL High 77.0-99.0 S [facility] Comment on above: Performed By: #### L [id number] ####Electromedical Equipment Technician: RUTH ANN BRAGG ([phone])[facility] [place] (SBHLAB)[address] Platelet mean volume (Bld) [Entitic vol] 11.8 fL Normal 9.0-12.7 [facility] Comment on above: Performed By: #### L [id number] ####Electromedical Equipment Technician: RUTH ANN BRAGG ([phone])[facility] [place] (SBHLAB)[address] Platelets (Bld) [#/Vol] 81 10*3/uL Low 140-440 S [facility] Comment on above: Performed By: #### L [id number] ####Electromedical Equipment Technician: RUTH ANN BRAGG ([phone])[facility] [place] (SBHLAB)[address] RBC (Bld) [#/Vol] 3.17 10*6/uL Low 3.80-5.20 [facility] Comment on above: Performed By: #### L [id number] ####Electromedical Equipment Technician: RUTH ANN BRAGG ([phone])[facility] [place] (SBHLAB)[address] [place] [address] [place] WBC (Bld) [#/Vol] 6.2 10*3/uL Normal 3.6-10.7 [facility] Comment on above: Performed By: #### L [id number] ####Electromedical Equipment Technician: RUTH ANN BRAGG ([phone])[facility] [place] (SBHLAB)[address] COMPLETE URINALYSISon 2023 BACTERIA (#/HPF) IN URINE Few Abnormal Negative [facility] Comment on above: Performed By: #### L [id number] ####Electromedical Equipment Technician: RUTH ANN BRAGG ([phone])[facility] (SBHLAB)[address] BILIRUBIN, TOTAL PRESENCE IN URINE Negative Normal Negative [facility] Comment on above: Performed By: #### L [id number] ####Electromedical Equipment Technician: RUTH ANN BRAGG ([phone])[facility] (SBHLAB)[address] Clarity (U) Turbid Abnormal Clear [facility] Comment on above: Performed By: #### L [id number] ####Electromedical Equipment Technician: RUTH ANN BRAGG ([phone])[facility] ([facility])[address] Color (U) Yellow Normal Lt. Yellow [facility] Comment on above: Performed By: #### L [id number] ####Electromedical Equipment Technician: RUTH ANN BRAGG ([phone])[facility] ([facility])[address] Glucose (U) [Mass/Vol] 200 mg/dL Abnormal Lillian l (<70) [facility] Comment on above: Performed By: #### L [id number] ####Electromedical Equipment Technician: RUTH ANN BRAGG ([phone])[facility] ([facility] HEMOGLOBIN PRESENCE IN URINE >1.0 Abnormal Negative [facility] Comment on above: Performed By: #### L [id number] ####Electromedical Equipment Technician: RUTH ANN BRAGG ([phone])[facility] (SBAB)[address] Ketones Ql (U) Negative Normal Negative [facility] Comment on above: Performed By: #### L [id number] ####Electromedical Equipment Technician: RUTH ANN OBREGON-SHELTON ([phone])[facility] (SBHLAB)[address] LEUKOCYTE ESTERASE PRESENCE IN URINE BY TEST STRIP 75 Yomi/uL Abnormal Negative [facility] [facility] Comment on above: Performed By: #### L [id number] ####Electromedical Equipment Technician: RUTH ANN YEMI ([phone])[facility] (SBHLAB)[address] [place] [address] [place] MUCUS (#/LPF) IN URINE SEDIMENT Few Normal Negative [facility] Comment on above: Performed By: #### L [id number] ####Electromedical Equipment Technician: RUTH ANN YEMI ([phone])[facility] (SBHLAB)[address] NITRITE PRESENCE IN URINE Negative Normal Negative [facility] Comment on above: Performed By: #### L [id number] ####Electromedical Equipment Technician: RUTH ANN OBREGONWILTON ([phone])[facility] (SBHLAB)[address] pH (U) 5.5 [pH] Normal 5.0-8.0 [facility] Comment on above: Performed By: #### L [id number] ####Electromedical Equipment Technician: RUTH ANN HERRONSHELTON ([phone])[facility] (SBHLAB)[address] Protein (U) [Mass/Vol] 50 mg/dL Abnormal Negative [facility] Comment on above: Performed By: #### L [id number] ####Electromedical Equipment Technician: RUTH ANN OBREGONWILTON ([phone])[facility] (SBHLAB)[address] [place] [address] [place] RBC (#/HPF) IN URINE SEDIMENT 51-100 Abnormal 0-2 [facility] Comment on above: Performed By: #### L [id number] ####Electromedical Equipment Technician: RUTH ANN HERRONSHELTON ([phone])[facility] (SBHLAB)[address] Specific gravity (U) [Rel density] 1.015 Normal 1.005-1.030 [facility] Comment on above: Performed By: #### L AB347 ####Electromedical Equipment Technician: RUTH ANN BRAGG ([id number])[facility] [place] (SBHLAB)[address] SQUAMOUS EPITHELIAL CELLS (#/HPF) IN URINE SEDIMENT 3-5 Normal 3-5 [facility] Comment on above: Performed By: #### L AB347 ####Electromedical Equipment Technician: RUTH ANN BRAGG ([phone])[facility] [place] (SBHLAB)[address] UROBILINOGEN (MG/DL) IN URINE 2 mg/dL Abnormal Normal (0-1) [facility] Comment on above: Performed By: #### L [id number] ####Electromedical Equipment Technician: RUTH ANN BRAGG ([phone])[facility] (SB[facility]AB)[address] WBC (LEUKOCYTE) (#/HPF) IN URINE SEDIMENT 11-25 Abnormal 0-5 [facility] Comment on above: Performed By: #### L AB347 ####Electromedical Equipment Technician: RUTH ANN BRAGG ([phone])[facility] (SBHLAB)[address] COMPREHENSIVE METABOLIC PANE Smith 01-30-2024 Albumin [Mass/Vol] 3.1 g/dL Low 3.5-5.0 [facility] Comment on above: Performed By: #### L AB17 ####Electromedical Equipment Technician: RUTH ANN BRAGG ([phone])[facility] [place] (SBHLAB)[address] [place] [address] [place] ALP [Catalytic activity/Vol] 79 U/L Normal 38-126 [facility] Comment on above: Performed By: #### L AB17 ####Electromedical Equipment Technician: RUTH ANN BRAGG ([phone])[facility] (SB[facility]AB)[address] [place] [address] [place] ALT [Catalytic activity/Vol] 23 U/L Normal 0-34 [facility] Comment on above: Performed By: #### L AB17 ####Electromedical Equipment Technician: RUTH ANN BRAGG ([phone])[facility] (HLAB)[address] Anion gap [Moles/Vol] 7 mmol/L Normal 3-13 [facility] Comment on above: Performed By: #### L AB17 ####Electromedical Equipment Technician: RUTH ANN BRAGG ([phone])[facility] AST [Catalytic activity/Vol] 40 U/L Normal 15-46 [facility] Comment on above: Performed By: #### L AB17 ####Electromedical Equipment Technician: RUTH ANN BRAGG ([phone])[facility] ([facility] Bilirubin [Mass/Vol] 1.0 mg/dL Normal 0.2-1.3 [facility] Comment on above: Performed By: #### L AB17 ####Electromedical Equipment Technician: RUTH ANN BRAGG ([phone])[facility] Calcium [Mass/Vol] 8.8 mg/dL Normal 8.4-10.4 [facility] Comment on above: Performed By: #### L AB17 ####Electromedical Equipment Technician: RUTH ANN BRAGG ([phone])[facility] ([facility] Chloride [Moles/Vol] 111 mmol/L High 98-107 [facility] Comment on above: Performed By: #### L AB17 ####Electromedical Equipment Technician: RUTH ANN BRAGG ([phone])[facility] ([facility])[address] CO2 [Moles/Vol] 21 mmol/L Low 22-30 [facility] Comment on above: Performed By: #### L AB17 ####Electromedical Equipment Technician: RUTH ANN BRAGG ([phone])[facility] [place] (SBHLAB)[address] [place] [address] [place] Creatinine [Mass/Vol] 1.58 mg/dL High 0.52-1.04 [facility] Comment on above: Performed By: #### L AB17 ####Electromedical Equipment Technician: RUTH ANN BRAGG ([phone])[facility] [place] (SBHLAB)[address] [place] [address] [place] GLOMERULAR FILTRATION RATE ML/MIN/1.73 SQ M.PREDICTED 33.4 mL/min/1.73m*2 Low >60.0 [facility] Comment on above: Result Comment: Calc ulation based on the Chronic Kidney Disease Epidemiology Collaboration (CKD-EPI) equation refit without adjustment for race Performed By: #### L AB17 ####Electromedical Equipment Technician: RUTH ANN BRAGG ([phone])[facility] [place] (SBHLAB)[address] [place] [address] [place] Glucose [Mass/Vol] 148 mg/dL High 70-100 [facility] Comment on above: Performed By: #### L AB17 ####Electromedical Equipment Technician: RUTH ANN BRAGG ([phone])[facility] [place] (SBHLAB)[address] Potassium [Moles/Vol] 3.7 mmol/L Normal 3.5-5.1 [facility] Comment on above: Performed By: #### L AB17 ####Electromedical Equipment Technician: RUTH ANN BRAGG ([phone])[facility] [place] (SBHLAB)[address] [place] [address] [place] Protein [Mass/Vol] 6.4 g/dL Normal 6.3-8.2 [facility] Comment on above: Performed By: #### L AB17 ####Electromedical Equipment Technician: RUTH ANN BRAGG ([phone])[facility] [place] (SBHLAB)[address] [place] [address] [place] Sodium [Moles/Vol] 138 mmol/L Normal 135-145 [facility] Comment on above: Performed By: #### L AB17 ####Electromedical Equipment Technician: RUTH ANN BRAGG ([phone])[facility] (SBHLAB)[address] Urea nitrogen [Mass/Vol] 30 mg/dL High 7-17 [facility] Comment on above: Performed By: #### L AB17 ####Electromedical Equipment Technician: RUTH ANN OBREGONWILTON ([phone])[facility] (SBHLAB)[address] CRP [Mass/Vol]on 01-30-2024 Interpretation and review of laboratory results Abnormal [facility] Comprehensive metabolic 1998 panelon 01-30-2024 Albumin [Mass/Vol] 3.1 g/dL Low 3.5 - 5.0 g/dL [facility] ALP [Catalytic activity/Vol] 79 U/L 38 - 126 U/L [facility] ALT [Catalytic activity/Vol] 23 U/L 0 - 34 U/L [facility] Anion gap [Moles/Vol] 7 mmol/L 3 - 13 mmol/L [facility] AST [Catalytic activity/Vol] 40 U/L 15 - 46 U/L [facility] Bilirubin [Mass/Vol] 1.0 mg/dL 0.2 - 1 .3 mg/dL [facility] Calcium [Mass/Vol] 8.8 mg/dL 8.4 - 10. 4 mg/dL [facility] Chloride [Moles/Vol] 111 mmol/L High 98 - 10 7 mmol/L [facility] CO2 [Moles/Vol] 21 mmol/L Low 22 - 30 mmol/L [facility] Creatinine [Mass/Vol] 1.58 mg/dL High 0.52 - 1.04 mg/dL [facility] GFR/1.73 sq M.predicted MDRD (S/P/Bld) [Vol rate/Area] 33.4 mL/min/{1.73_m2} Low - PINF [facility] Comment on above: Calculation based on the Chronic Kidney Disease Epidemiology Collaboration (CKD-EPI) equation refit without adjustment for race Glucose [Mass/Vol] 148 mg/dL High 70 - 100 mg/dL [facility] Interpretation and review of laboratory results Abnormal [facility] Potassium [Moles/Vol] 3.7 mmol/L 3.5 - 5.1 mmol/L [facility] Protein [Mass/Vol] 6.4 g/dL 6.3 - 8.2 g/dL [facility] Sodium [Moles/Vol] 138 mmol/L 135 - 145 mmol/L [facility] Urea nitrogen [Mass/Vol] 30 mg/dL High 7 - 17 mg/dL [facility] IDNon 01-30-2024 IDN Normal [facility] IDN Normal [facility] Laboratory - Chemistry and C hemistry - challengeon 01-30-2024 Glucose [Mass/Vol] 180 mg/dL High 70 - 100 mg/dL [facility] Glucose [Mass/Vol] 185 mg/dL High 70 - 100 mg/dL [facility] Glucose [Mass/Vol] 179 mg/dL High 70 - 100 mg/dL [facility] Glucose [Mass/Vol] 169 mg/dL High 70 - 100 mg/dL [facility] Procalcitonin [Mass/Vol] 0.12 ng/mL High 0.0 0 - 0.09 ng/mL [facility] CRP [Mass/Vol] 18.3 mg/L High NINF - 10.0 mg/L [facility] No Panel Informationon 01-29 Interpretation and review of laboratory results Abnormal [facility] Performed by: [facility], [address] [place] [address] CLIA ID: [id number] [facility] Interpretation and review of laboratory results Abnormal [facility] Performed by: [facility], [address] [place] [id number] CLIA ID: [id number] [facility] Interpretation and review of laboratory results Abnormal [facility] Performed by: [facility], [address] [place] [address] CLIA ID: [id number] [facility] No evidence of deep [...] Vein: Patent, compressible. Peroneal Vein: Patent, compressible. [employer] Details A arteaga scale, color Doppler imaging, [...] Interpretation and review of laboratory results Abnormal [facility]formed [facility]: [facility], [address] [place] [address] CLIA ID: [id number] [facility] Radiology Study observation (narrative) [facility] Radiology Study observation (narrative) [facility] Radiology Study observation (narrative) [facility] Radiology Study observation (narrative) [facility] Nursing Noteon 01-30-2024 Nursing Note 01/29/24 2350, Pt having SOB expiratory wheezing,I gave her a PRN [place],Dr Morillo notified,he put an order for breathing treatment an chest x-ray. Normal [facility] Procalcitonin [Mass/Vol]on 0 01-30-2024 Interpretation and review of laboratory results Abnormal [facility] PCT <0.50 = Low risk of severe sepsis and/or septic shock. PCT >2.00 = High risk of severe sepsis and/or septic shock. [facility] Progress Noteon 01-30-[address] [facility] Progress Note Normal [facility] Progress Note Normal [facility] Progress Note Nutrition rescreen complete. Pt assigned a level one for nutrition care. Normal [facility] US RETROPERITONEALon 024 US RETROPERITONEAL Normal [facility] US Retroperitoneumon 024 Unremarkable renal ultrasound. Report Dictated on Electronically Signed By: Kj Serna DO Electronically Signed Date/Time: 01/30/2024 10:57 AM EDT [facility] Patient Name: MIKEL WINSTON : 1945 [...] the kidneys. The bladder is grossly unremarkable. [facility] Kj Serna DO - 01/30/2024 Patient [...] Electronically Signed Date/Time: 01/30/2024 10:57 AM EDT [facility] US RetroperitoneumOrdered By : Kj Serna on 01-30-2024 [facility] Work Phone: Urinalysis complete panel (U )on 01-30-2024 Bacteria LM.HPF (Urine sed) [#/Area] Few Abnormal Negative /HPF [facility] Bilirubin Ql (U) Negative Negative mg/dL [facility] Clarity (U) Turbid Abnormal Clear [facility] Color (U) Yellow Lt. Yellow [facility] Epithelial cells.squamous LM.HPF (Urine sed) [#/Area] 3-5 [facility] Glucose Ql (U) 200 mg/dL Abnormal Normal (<70) [facility] Hemoglobin Ql (U) >1.0 Abnormal Negative mg/dL [facility] Interpretation and review of laboratory results Abnormal [facility] Ketones (U) [Mass/Vol] Negative Negat balbina mg/dL [facility] Leukocyte esterase Test strip Ql (U) 75 Abnormal Negative Yomi/uL [facility] Mucus LM.HPF (Urine sed) [#/Area] Few Negative /LPF [facility] Nitrite Ql (U) Negative Negative [facility] pH (U) 5.5 [pH] 5.0 - 8.0 pH [facility] Protein (U) [Mass/Vol] 50 mg/dL Abnormal Negative [facility] RBC LM.HPF (Urine sed) [#/Area] 51-100 Abnormal [facility] Specific gravity (U) [Rel density] 1.015 1.005 - 1.030 [facility] Urobilinogen (U) [Mass/Vol] 2 mg/dL Abnormal Normal (0-1) [facility] WBC LM.HPF (Urine sed) [#/Area] 11-25 Abnormal [facility] XR Chest Single viewon 01-29 Cardiomegaly with interstitial edema. Possible consolidation at the base of the right upper lobe. Report Dictated on Electronically Signed By: Antwan Boyd MD Electronically Signed Date/Time: 01/30/2024 8:05 PM EDT [facility] Patient Name: MIKEL WINSTON : [...] mid hemithorax. The costophrenic angles are obscured. [facility] Antwan Boyd MD - 01/30/2024 Patient [...] Electronically Signed Date/Time: 01/30/2024 8:05 PM EDT [facility] Radiology Study observation (narrative) [facility] Lines, tubes, and devices: None. [...] Signed Date/Time: 01/30/2024 8:29 AM EDT [facility] Patient Name: MIKEL WINSTON : 1945 Exam Date/Time: 01/30/2024 00:45 Procedure: XR CHEST 1 VIEW Ordering Provider: MORILLO DANIEL Reason For Exam: sob EXAMINATION: CHEST RADIOGRAPH (SINGLE VIEW AP OR PA) Clinical History: sob Comparison: Radiograph 11/17/2022 RESULT: See impression [facility] Blaise Winters MD - 01/30/2024 [...] Electronically Signed Date/Time: 01/30/2024 8:29 AM EDT [facility] Radiology Study observation (narrative) [facility] XR Chest Single viewOrdered By: Antwan Boyd on 01-30-2024 [facility] Work Phone: C-REACTIVE PROTEINon 024 CRP [Mass/Vol] 18.3 mg/L High <10.0 [facility] Comment on above: Performed By: #### L [id number], LAB17 ####Electromedical Equipment Technician: RUTH ANN BRAGG ([phone])[facility] (SBAB)[address] [place] [address] CARECOORDon 01-29-2024 CARECOORD Normal [facility] CBC W Auto Differential pane l (Bld)Ordered By: Ovidio Carson on 01-29-2024 Erythrocyte distribution width (RBC) [Ratio] 13.7 % 11.5 - 15.0 % [facility] Hematocrit (Bld) [Volume fraction] 32.5 % Low 35.0 - 47.0 % [facility] Hemoglobin (Bld) [Mass/Vol] 10.5 g/dL Low 11.7 - 16.0 g/dL [facility] Interpretation and review of laboratory results Abnormal [facility] IPF 4 [facility] MCH (RBC) [Entitic mass] 31.7 pg 26. 0 - 34.0 pg [facility] MCHC (RBC) [Mass/Vol] 32.3 % 30.5 - 36.0 % [facility] MCV (RBC) [Entitic vol] 98.2 fL 77.0 - 99.0 fL [facility] Platelet mean volume (Bld) [Entitic vol] 11.6 fL 9.0 - 12.7 fL [facility] Platelets (Bld) [#/Vol] 89 10*3/uL Low 140 - 440 10*3/uL [facility] RBC (Bld) [#/Vol] 3.31 10*6/uL Low 3.80 - 5.2 0 10*6/uL [facility] WBC (Bld) [#/Vol] 9.0 10*3/uL 3.6 - 10.7 10*3/uL [facility] CBC WITH AUTO DIFFERENTIALon 01-29-2024 Erythrocyte distribution width (RBC) [Ratio] 13.7 % Normal 11.5-15.0 [facility] Comment on above: Performed By: #### L [id number], [id number] ####Electromedical Equipment Technician: RUTH ANN BRAGG ([phone])[facility] (SBHLAB)[address] Hematocrit (Bld) [Volume fraction] 32.5 % Low 35.0-47.0 [facility] Comment on above: Performed By: #### L [id number], [id number] ####Electromedical Equipment Technician: RUTH ANN BRAGG ([phone])[facility] (SBHLAB)[address] [place] [address] Hemoglobin (Bld) [Mass/Vol] 10.5 g/dL Low 11.7-16.0 [facility] Comment on above: Performed By: #### L [id number], [id number] ####Electromedical Equipment Technician: RUTH ANN BRAGG ([phone])[facility] (SBHLAB)[address] [place] [address] IPF 4 Normal [facility] Comment on above: Performed By: #### L [id number], [id number] ####Electromedical Equipment Technician: RUTH ANN BRAGG ([phone])[facility] (SBHLAB)[address] [place] [address] MCH (RBC) [Entitic mass] 31.7 pg Normal 26.0-34.0 [facility] Comment on above: Performed By: #### L [id number], [id number] ####Electromedical Equipment Technician: RUTH ANN BRAGG ([phone])[facility] (SBHLAB)[address] MCHC 32.3 % Normal 30.5-36.0 [facility] Comment on above: Performed By: #### L [id number], [id number] ####Electromedical Equipment Technician: RUTH ANN BRAGG ([phone])[facility] (SBHLAB)[address] MCV (RBC) [Entitic vol] 98.2 fL Normal 77.0-99.0 S [facility] Comment on above: Performed By: #### L [id number], [id number] ####Electromedical Equipment Technician: RUTH ANN BRAGG ([id number])[facility] [place] (SBHLAB)[address] Platelet mean volume (Bld) [Entitic vol] 11.6 fL Normal 9.0-12.7 [facility] Comment on above: Performed By: #### L [id number], [id number] ####Electromedical Equipment Technician: RUTH ANN BRAGG ([phone])[facility] [place] (SBHLAB)[address] Platelets (Bld) [#/Vol] 89 10*3/uL Low 140-440 S [facility] Comment on above: Performed By: #### L [id number], [id number] ####Electromedical Equipment Technician: RUTH ANN BRAGG ([id number])[facility] [place] (SBHLAB)[address] RBC (Bld) [#/Vol] 3.31 10*6/uL Low 3.80-5.20 [facility] Comment on above: Performed By: #### L [id number], [id number] ####Electromedical Equipment Technician: RUTH ANN BRAGG ([phone])[facility] [place] (SBHLAB)[address] [place] [address] [place] WBC (Bld) [#/Vol] 9.0 10*3/uL Normal 3.6-10.7 [facility] Comment on above: Performed By: #### L [id number], [id number] ####Electromedical Equipment Technician: RUTH ANN BRAGG ([id number])[facility] [place] (SBHLAB)[address] CHLORIDE, URINE, RANDOMon CHLORIDE, UR RANDOM 61 mmol/L Normal 19-209 [facility] Comment on above: Performed By: #### L AB689, [id number], [id number], [id number] ####Electromedical Equipment Technician: RUTH ANN BRAGG ([phone])[facility] (SBHLAB)[address] COMPREHENSIVE METABOLIC PANE Smith 01-29-2024 Albumin [Mass/Vol] 3.4 g/dL Low 3.5-5.0 [facility] Comment on above: Performed By: #### L AB149, LAB17 ####Electromedical Equipment Technician: RUTH ANN BRAGG ([phone])[facility] (SBHLAB)[address] ALP [Catalytic activity/Vol] 73 U/L Normal 38-126 [facility] Comment on above: Performed By: #### L AB149, LAB17 ####Electromedical Equipment Technician: RUTH ANN BRAGG ([id number])[facility] (SBHLAB)[address] ALT [Catalytic activity/Vol] 22 U/L Normal 0-34 [facility] Comment on above: Performed By: #### L AB149, LAB17 ####Electromedical Equipment Technician: RUTH ANN BRAGG ([phone])[facility] (SBHLAB)[address] Anion gap [Moles/Vol] 9 mmol/L Normal 3-13 [facility] Comment on above: Performed By: #### L AB149, LAB17 ####Electromedical Equipment Technician: RUTH ANN BRAGG ([phone])[facility] (SBHLAB)[address] AST [Catalytic activity/Vol] 36 U/L Normal 15-46 [facility] Comment on above: Performed By: #### L AB149, LAB17 ####Electromedical Equipment Technician: RUTH ANN BRAGG ([phone])[facility] [place] (SBHLAB)[address] [place] [address] [place] Bilirubin [Mass/Vol] 1.2 mg/dL Normal 0.2-1.3 [facility] Comment on above: Performed By: #### L AB149, LAB17 ####Electromedical Equipment Technician: RUTH ANN BRAGG ([phone])[facility] [place] (SBHLAB)[address] Calcium [Mass/Vol] 9.6 mg/dL Normal 8.4-10.4 [facility] Comment on above: Performed By: #### L AB149, LAB17 ####Electromedical Equipment Technician: RUTH ANN BRAGG ([phone])[facility] [place] (SBHLAB)[address] Chloride [Moles/Vol] 109 mmol/L High 98-107 [facility] Comment on above: Performed By: #### L AB149, LAB17 ####Electromedical Equipment Technician: RUTH ANN BRAGG ([phone])[facility] [place] (SBHLAB)[address] [place] [address] [place] CO2 [Moles/Vol] 22 mmol/L Normal 22-30 [facility] Comment on above: Performed By: #### L AB149, LAB17 ####Electromedical Equipment Technician: RUTH ANN BRAGG ([id number])[facility] [place] (SBHLAB)[address] [place] [address] [place] Creatinine [Mass/Vol] 1.68 mg/dL High 0.52-1.04 [facility] Comment on above: Performed By: #### L AB149, LAB17 ####Electromedical Equipment Technician: RUTH ANN BRAGG ([phone])[facility] [place] (SBHLAB)[address] [place] [address] [place] GLOMERULAR FILTRATION RATE ML/MIN/1.73 SQ M.PREDICTED 31.0 mL/min/1.73m*2 Low >60.0 [facility] Comment on above: Result Comment: Calc ulation based on the Chronic Kidney Disease Epidemiology Collaboration (CKD-EPI) equation refit without adjustment for race Performed By: #### L AB149, LAB17 ####Electromedical Equipment Technician: RUTH ANN BRAGG ([phone])[facility] (SBHLAB)[address] Glucose [Mass/Vol] 128 mg/dL High 70-100 [facility] Comment on above: Performed By: #### L AB149, LAB17 ####Electromedical Equipment Technician: RUTH ANN BRAGG ([phone])[facility] (SBHLAB)[address] Potassium [Moles/Vol] 3.9 mmol/L Normal 3.5-5.1 [facility] Comment on above: Performed By: #### L AB149, LAB17 ####Electromedical Equipment Technician: RUTH ANN BRAGG ([phone])[facility] (SBHLAB)[address] Protein [Mass/Vol] 6.5 g/dL Normal 6.3-8.2 [facility] Comment on above: Performed By: #### L AB149, LAB17 ####Electromedical Equipment Technician: RUTH ANN BRAGG ([phone])[facility] (SBHLAB)[address] Sodium [Moles/Vol] 140 mmol/L Normal 135-145 [facility] Comment on above: Performed By: #### L AB149, LAB17 ####Electromedical Equipment Technician: RUTH ANN BRAGG ([phone])[facility] (SB[facility]AB)[address] [place] [address] [place] Urea nitrogen [Mass/Vol] 30 mg/dL High 7-17 [facility] Comment on above: Performed By: #### L AB149, LAB17 ####Electromedical Equipment Technician: RUTH ANN BRAGG ([phone])[facility] (SBHLAB)[address] Comprehensive metabolic 1998 panelon 01-29-2024 Albumin [Mass/Vol] 3.4 g/dL Low 3.5 - 5.0 g/dL [facility] ALP [Catalytic activity/Vol] 73 U/L 38 - 126 U/L [facility] ALT [Catalytic activity/Vol] 22 U/L 0 - 34 U/L [facility] Anion gap [Moles/Vol] 9 mmol/L 3 - 13 mmol/L [facility] AST [Catalytic activity/Vol] 36 U/L 15 - 46 U/L [facility] Bilirubin [Mass/Vol] 1.2 mg/dL 0.2 - 1 .3 mg/dL [facility] Calcium [Mass/Vol] 9.6 mg/dL 8.4 - 10. 4 mg/dL [facility] Chloride [Moles/Vol] 109 mmol/L High 98 - 10 7 mmol/L [facility] CO2 [Moles/Vol] 22 mmol/L 22 - 30 mmol/L [facility] Creatinine [Mass/Vol] 1.68 mg/dL High 0.52 - 1.04 mg/dL [facility] GFR/1.73 sq M.predicted MDRD (S/P/Bld) [Vol rate/Area] 31.0 mL/min/{1.73_m2} Low - PINF [facility] Comment on above: Calculation based on the Chronic Kidney Disease Epidemiology Collaboration (CKD-EPI) equation refit without adjustment for race Glucose [Mass/Vol] 128 mg/dL High 70 - 100 mg/dL [facility] Interpretation and review of laboratory results Abnormal [facility] Potassium [Moles/Vol] 3.9 mmol/L 3.5 - 5.1 mmol/L [facility] Protein [Mass/Vol] 6.5 g/dL 6.3 - 8.2 g/dL [facility] Sodium [Moles/Vol] 140 mmol/L 135 - 145 mmol/L [facility] Urea nitrogen [Mass/Vol] 30 mg/dL High 7 - 17 mg/dL [facility] Consulton 01-29-2024 Consult Normal [facility] ECG 12-LEADon 01-29-2024 ECG 12-LEAD IMPRESSION: Sinus rhythm Borderline prolonged IA interval 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 ST elevation secondary to IVCD Electronically Signed On 01-29-2024 05:57:24 EDT by Giancarlo Queen Normal [facility] Laboratory - Chemistry and C hemistry - challengeon 01-29-2024 Glucose [Mass/Vol] 168 mg/dL High 70 - 100 mg/dL [facility] Glucose [Mass/Vol] 148 mg/dL High 70 - 100 mg/dL [facility] Sodium (24H U) [Mass/Vol] 77 mmol/L 30 - 90 mmol/L [facility] Chloride (U) [Moles/Vol] 61 mmol/L 19 - 209 mmol/L [facility] Glucose [Mass/Vol] 183 mg/dL High 70 - 100 mg/dL [facility] Glucose [Mass/Vol] 125 mg/dL High 70 - 100 mg/dL [facility] Laboratory - Drug toxicology on 01-29-2024 Vancomycin [Mass/Vol] 16.4 ug/mL 15.0 - 20.0 ug/mL [facility] Laboratory - Hematology and Cell countson 01-29-2024 Basophils (Bld) [#/Vol] 0.1 10*3/uL 0.0 - 0.2 10*3/uL [facility] Basophils/100 WBC (Bld) 1 % 0 - 2 % [facility] Eosinophils (Bld) [#/Vol] 0.1 10*3/uL 0. 0 - 0.5 10*3/uL [facility] Eosinophils/100 WBC (Bld) 1 % 0 - 6 % [facility] Lymphocytes (Bld) [#/Vol] 0.7 10*3/uL Low 1. 0 - 4.3 10*3/uL [facility] Lymphocytes/100 WBC (Bld) 8 % Low 15 - 45 % [facility] Monocytes (Bld) [#/Vol] 0.4 10*3/uL 0.0 - 0.9 10*3/uL [facility] Monocytes/100 WBC (Bld) 4 % Low 5 - 13 % [facility] Neutrophils (Bld) [#/Vol] 7.7 10*3/uL High 1. 8 - 7.5 10*3/uL [facility] RBC morphology finding Nom (Bld) Normal [facility] Segmented neutrophils/100 WBC (Bld) 86 % High 38 - 82 % [facility] Laboratory - Urinalysison Protein (U) [Mass/Vol] 32 mg/dL High 0 - 1 2 mg/dL [facility] MANUAL DIFFERENTIAL (CELLAVI KRISTIAN)on 01-29-2024 BAND NEUTROPHILS TOTAL PER COUNTED LEUKOCYTES BY MANUAL COUNT Normal [facility] Comment on above: Performed By: #### L [id number], [id number] ####Electromedical Equipment Technician: RUTH ANN BRAGG ([phone])[facility] [place] ([facility])[address] [place] [address] [place] BASOPHILS (10*3/UL) IN BLOOD-CELLAVISION 0.1 10*3/uL Normal 0.0-0.2 [facility] Comment on above: Performed By: #### L [id number], [id number] ####Electromedical Equipment Technician: RUTH ANN BRAGG ([phone])[facility] [place] ([facility])[address] [place] [address] [place] BASOPHILS TOTAL PER COUNTED LEUKOCYTES BY MANUAL COUNT 1 [facility] Comment on above: Performed By: #### L [id number], [id number] ####Electromedical Equipment Technician: RUTH ANN BRAGG ([phone])[facility] [place] ([facility])[address] [place] [address] [place] BASOPHILS/100 LEUKOCYTES IN BLOOD-CELLAVISION 1 % Normal 0-2 [facility] Comment on above: Performed By: #### L [id number], [id number] ####Electromedical Equipment Technician: RUTH ANN BRAGG ([phone])[facility] [place] ([facility])[address] [place] [address] [place] BLASTS TOTAL PER COUNTED LEUKOCYTES BY MANUAL COUNT [facility] Comment on above: Performed By: #### L [id number], [id number] ####Electromedical Equipment Technician: RUTH ANN BRAGG ([phone])[facility] [place] ([facility])[address] [place] [address] [place] EOSINOPHILS (10*3/UL) IN BLOOD-CELLAVISION 0.1 10*3/uL Normal 0.0-0.5 [facility] Comment on above: Performed By: #### L [id number], [id number] ####Electromedical Equipment Technician: RUTH ANN BRAGG ([phone])[facility] [place] ([facility])[address] [place] [address] [place] EOSINOPHILS TOTAL PER COUNTED LEUKOCYTES BY MANUAL COUNT 1 Normal 0-1 [facility] Comment on above: Performed By: #### L [id number], [id number] ####Electromedical Equipment Technician: RUTH ANN BRAGG ([phone])[facility] [place] ([facility])[address] [place] [address] [place] EOSINOPHILS/100 LEUKOCYTES IN BLOOD-CELLAVISION 1 % Normal 0-6 [facility] Comment on above: Performed By: #### L [id number], [id number] ####Electromedical Equipment Technician: RUTH ANN BRAGG ([phone])[facility] [place] ([facility])[address] [place] [address] [place] LYMPHOCYTES (10*3/UL) IN BLOOD-CELLAVISION 0.7 10*3/uL Low 1.0-4.3 [facility] Comment on above: Performed By: #### L [id number], [id number] ####Electromedical Equipment Technician: RUTH ANN BRAGG ([phone])[facility] [place] ([facility])[address] [place] [address] [place] LYMPHOCYTES TOTAL PER COUNTED LEUKOCYTES BY MANUAL COUNT 8 Normal [facility] Comment on above: Performed By: #### L [id number], [id number] ####Electromedical Equipment Technician: RUTH ANN BRAGG ([phone])[facility] [place] ([facility])[address] [place] [address] [place] LYMPHOCYTES/100 LEUKOCYTES IN BLOOD-CELLAVISION 8 % Low 15-45 [facility] Comment on above: Performed By: #### L [id number], [id number] ####Electromedical Equipment Technician: RUTH ANN BRAGG ([phone])[facility] [place] ([facility])[address] [place] [address] [place] METAMYELOCYTES TOTAL PER COUNTED LEUKOCYTES BY MANUAL COUNT Normal [facility] Comment on above: Performed By: #### L [id number], [id number] ####Electromedical Equipment Technician: RUTH ANN BRAGG ([phone])[facility] [place] ([facility])[address] [place] [address] [place] MONOCYTES (10*3/UL) IN BLOOD-CELLAVISION 0.4 10*3/uL Normal 0.0-0.9 [facility] Comment on above: Performed By: #### L [id number], [id number] ####Electromedical Equipment Technician: RUTH ANN PRITCHARDCER ([phone])[facility] [place] ([facility])[address] [place] [address] [place] MONOCYTES TOTAL PER COUNTED LEUKOCYTES BY MANUAL COUNT 4 Normal [facility] Comment on above: Performed By: #### L [id number], [id number] ####Electromedical Equipment Technician: RUTH ANN PRITCHARDCER ([phone])[facility] [place] ([facility])[address] [place] [address] [place] MONOCYTES/100 LEUKOCYTES IN BLOOD-TOMMIE 4 % Low 5-13 [facility] Comment on above: Performed By: #### L [id number], [id number] ####Electromedical Equipment Technician: RUTH ANN BRAGG ([phone])[facility] [place] ([facility])[address] [place] [address] [place] MYELOCYTES COUNTED BY MANUAL COUNT [facility] Comment on above: Performed By: #### L [id number], [id number] ####Electromedical Equipment Technician: RUTH ANN BRAGG ([phone])[facility] [place] ([facility])[address] [place] [address] [place] NEUTROPHILS TOTAL PER COUNTED LEUKOCYTES BY MANUAL COUNT 86 [facility] Comment on above: Performed By: #### L [id number], [id number] ####Electromedical Equipment Technician: RUTH ANN BRAGG ([phone])[facility] [place] ([facility])[address] [place] [address] [place] PROMYELOCYTES TOTAL PER COUNTED LEUKOCYTES BY MANUAL COUNT [facility] Comment on above: Performed By: #### L [id number], [id number] ####Electromedical Equipment Technician: RUTH ANN BRAGG ([phone])[facility] [place] ([facility])[address] [place] [address] [place] RBC MORPHOLOGY IN BLOOD Normal Normal [facility] Comment on above: Performed By: #### L [id number], [id number] ####Electromedical Equipment Technician: RUTH ANN BRAGG ([phone])[facility] [place] ([facility])[address] SEGMENTED NEUTROPHILS (10*3/UL) IN BLOOD-CELLAVISION 7.7 10*3/uL High 1.8-7.5 [facility] Comment on above: Performed By: #### L [id number], [id number] ####Electromedical Equipment Technician: RUTH ANN BRAGG ([phone])[facility] [place] ([facility])[address] SEGMENTED NEUTROPHILS/100 LEUKOCYTES-CE 86 % High 38-82 [facility] Comment on above: Performed By: #### L [id number], [id number] ####Electromedical Equipment Technician: RUTH ANN BRAGG ([phone])[facility] [place] ([facility])[address] UNCLASSIFIED CELLS TOTAL PER COUNTED LEUKOCYTES BY MANUAL COUNT [facility] Comment on above: Performed By: #### L [id number], [id number] ####Electromedical Equipment Technician: RUTH ANN BRAGG ([phone])[facility] [place] ([facility])[address] VARIANT LYMPHOCYTES TOTAL PER COUNTED LEUKOCYTES BY MANUAL COUNT [facility] Comment on above: Performed By: #### L [id number], [id number] ####Electromedical Equipment Technician: RUTH ANN BRAGG ([phone])[facility] [place] ([facility])[address] MICROALBUMIN / CREATININE UR INE RATIOon 01-29-2024 CREATININE, URINE 46.7 mg/dL Normal No [facility] Comment on above: Performed By: #### L [id number], [id number], [id number], [id number] ####Electromedical Equipment Technician: RUTH ANN BRAGG ([phone])[facility] [place] ([facility])[address] [place] [address] [place] MICROALBUMIN, URINE 74.3 mg/L High 0.0-29.9 [facility] Comment on above: Result Comment: OLIVIA Mazariegos COMMENTS:Microalbumin concentrations <30 are considered normal, 30-300 are considered microalbuminuria (or risk of diabetic nephropathy), and >300 are considered clinical albuminuria (clinical nephropathy).Diabetes Care,27, Supplement 1, 2003 Performed By: #### L [id number], [id number], [id number], TRH802 ####Electromedical Equipment Technician: RUTH ANN BRAGG ([phone])[facility] ([facility])[address] [place] [address] MICROALBUMIN/CREATININE RATIO 159.1 mg/g High 0.0-29.9 [facility] Comment on above: Performed By: #### L [id number], IOF560, NOT256, ARU739 ####Electromedical Equipment Technician: RUTH ANN BRAGG ([phone])[facility] ([facility])[address] [place] [address] Microalbumin/Creatinine rati o panel (U)on 01-29-2024 Albumin DL <= 20 mg/L (U) [Mass/Vol] 74.3 mg/L High 0.0 - 29.9 mg/L [facility] Albumin/Creatinine DL <= 20 mg/L (U) [Mass ratio] 159.1 mg/g High 0.0 - 29.9 mg/g [facility] CREATININE, URINE 46.7 mg/dL No Range [facility] Interpretation and review of laboratory results [facility] Microalbumin concentrations <30 are considered normal, 30-300 are considered microalbuminuria (or risk of diabetic nephropathy), and >300 are considered clinical albuminuria (clinical nephropathy). Diabetes Care,27, Supplement 1, E42003 [facility] No Panel Informationon 01-28 Interpretation and review of laboratory results Abnormal [facility] Performed by: Marya Zheng, [address] [place] [address] CLIA ID: [id number] [facility] Interpretation and review of laboratory results Abnormal [facility] Performed by: Marya Zheng, [address] [place] [address] CLIA ID: [id number] [facility] Interpretation and review of laboratory results Normal [facility] Interpretation and review of laboratory results Abnormal [facility] Interpretation and review of laboratory results Abnormal [facility] Performed by: [facility], [address] [place] [address] CLIA ID: [id number] [facility] Interpretation and review of laboratory results Abnormal [facility] Performed by: [facility], [address] [place] [address] CLIA ID: [id number] [facility] Health Atypical Lymphocytes Manual [facility] Health Bands Manual [facility] Basophils Manual 1 [facility] He alth Blasts Manual [facility] E[facility] Manual 1 0 - 1 [facility] Interpretation and review of laboratory results Abnormal [facility] Lymphocytes Manual 8 [facility] Metamyelocytes Manual [facility] Monocytes Manual 4 [facility] alth Myelocytes Manual [facility] ealth Neutrophils Manual 86 [facility] Promyelocytes Manual 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 ST elevation secondary to IVCD Electronically Signed On 01-29-2024 05:57:24 EDT by Giancarlo Queen [facility] Radiology Study observation (narrative) [facility] Radiology Study observation (narrative) [facility] Rad[facility] Study observation (narrative) [facility] (narrative) [facility] No Panel InformationOrdered By: Giancarlo Queen on 01-29-2024 P [place] 66 degrees [facility] Health Work Phone: IA Interval 207 ms [facility] Work Phone: QRS [place] -65 degrees [facility] Health Work Phone: QRSD Interval 172 ms [facility] h Work Phone: QT Interval 437 ms [employer] Work Phone: QTC Interval 540 ms [employer] Work Phone: T Wave [place] 98 degrees [employer] Work Phone: [employer] Work Phone: PROCALCITONIN TESTon 024 PROCALCITONIN 0.12 ng/mL High 0.00-0.09 [facility] Comment on above: Result Comment: ORDE R COMMENTS:PCT <0.50 = Low risk of severe sepsis and/or septic shock.PCT >2.00 = High risk of severe sepsis and/or septic shock. Performed By: #### L [id number] ####Electromedical Equipment Technician: CHERYL STOREY ([phone])[facility] ([facility])[address] [place] [address] PROTEIN, URINE, RANDOMon Protein (U) [Mass/Vol] 32 mg/dL High 0-12 [facility] Comment on above: Performed By: #### L [id number], [id number], LEU108, [id number] ####Electromedical Equipment Technician: RUTH ANN BRAGG ([phone])[facility] (SBAB)[address] [place] [address] Progress Noteon 01-29-2024 Progress Note Normal [facility] System [facility] Progress Note PHYSICAL THERAPY [facility] Name/MRN: Mikel Winston ([id number]) Date: 01/29/2024 Chart reviewed. Pt with pending Duplex. Will await result and attempt as appropiate Siddharth Irving PT Normal [facility] System [facility] Progress Note Normal [facility] Healt h System [facility] Progress Note Normal [facility] Progress Note Normal [facility] SODIUM, URINE, RANDOMon 01-07 Sodium (U) [Moles/Vol] 77 mmol/L Normal 30-90 [facility] Comment on above: Performed By: #### L [id number], [id number], [id number], DYT656 ####Electromedical Equipment Technician: RUTH ANN BRAGG ([phone])[facility] ([facility])[address] VANCOMYCIN, RANDOMon 024 VANCOMYCIN 16.4 ug/mL Normal 15.0-20.0 [facility] Comment on above: Order Comment: Ok to draw with morning labs. Please draw at least 2 hours after Vancomycin infusion has stopped. Performed By: #### L [id number] ####Electromedical Equipment Technician: RUTH ANN BRAGG ([phone])[facility] ([facility])[address] Vital signsOrdered By: Giovanny Queen on 01-29-2024 Heart rate 91 /min bpm [facility] Work Phone: BASIC METABOLIC PANELon 01-07 Anion gap [Moles/Vol] 13 mmol/L Normal 3-13 [facility] Comment on above: Performed By: #### L [id number], [id number], [id number], LAB15, EXE735, RGC709 ####Electromedical Equipment Technician: RUTH ANN BRAGG ([phone])[facility] ([facility])[address] Calcium [Mass/Vol] 10.2 mg/dL Normal 8.4-10.4 [facility] Comment on above: Performed By: #### L [id number], [id number], [id number], LAB15, ZJI105, WID993 ####Electromedical Equipment Technician: RUTH ANN BRAGG ([phone])[facility] ([facility])[address] Chloride [Moles/Vol] 107 mmol/L Normal 98-107 [facility] Comment on above: Performed By: #### L [id number], [id number], [id number], LAB15, ECO676, MGA343 ####Electromedical Equipment Technician: RUTH ANN BRAGG ([phone])[facility] ([facility])[address] CO2 [Moles/Vol] 21 mmol/L Low 22-30 [facility] Comment on above: Performed By: #### L AB137, [id number], [id number], LAB15, MBC746, VJI523 ####Electromedical Equipment Technician: RUTH ANN BRAGG ([phone])[facility] ([facility])[address] Creatinine [Mass/Vol] 1.70 mg/dL High 0.52-1.04 [facility] Comment on above: Performed By: #### L [id number], [id number], [id number], LAB15, PBF128, ZUV805 ####Electromedical Equipment Technician: RUTH ANN BRAGG ([phone])[facility] [place] ([facility])[address] GLOMERULAR FILTRATION RATE ML/MIN/1.73 SQ M.PREDICTED 30.6 mL/min/1.73m*2 Low >60.0 [facility] Comment on above: Result Comment: Calc ulation based on the Chronic Kidney Disease Epidemiology Collaboration (CKD-EPI) equation refit without adjustment for race Performed By: #### L [id number], [id number], [id number], LAB15, KRS599, [id number] ####Electromedical Equipment Technician: RUTH ANN BRAGG ([phone])[facility] [place] ([facility])[address] Glucose [Mass/Vol] 122 mg/dL High 70-100 [facility] Comment on above: Performed By: #### L AB137, [id number], SYN306, LAB15, GLK773, MEI170 ####Electromedical Equipment Technician: RUTH ANN BRAGG ([phone])[facility] [place] ([facility])[address] [place] [address] [place] Potassium [Moles/Vol] 4.3 mmol/L Normal 3.5-5.1 [facility] Comment on above: Performed By: #### L [id number], [id number], HER114, LAB15, RNW166, EFM292 ####Electromedical Equipment Technician: RUTH ANN BRAGG ([phone])[facility] ([facility])[address] [place] [address] [place] Sodium [Moles/Vol] 141 mmol/L Normal 135-145 [facility] Comment on above: Performed By: #### L [id number], [id number], [id number], LAB15, AHP309, PCH325 ####Electromedical Equipment Technician: RUTH ANN BRAGG ([phone])[facility] ([facility])[address] Urea nitrogen [Mass/Vol] 33 mg/dL High 7-17 [facility] Comment on above: Performed By: #### L [id number], [id number], [id number], LAB15, LSL735, MLQ787 ####Electromedical Equipment Technician: RUTH ANN BRAGG ([phone])[facility] ([facility])[address] Basic metabolic 1998 panelon 01-28-2024 Anion gap [Moles/Vol] 13 mmol/L 3 - 13 mmol/L [facility] Calcium [Mass/Vol] 10.2 mg/dL 8.4 - 10. 4 mg/dL [facility] Chloride [Moles/Vol] 107 mmol/L 98 - 10 7 mmol/L [facility] CO2 [Moles/Vol] 21 mmol/L Low 22 - 30 mmol/L [facility] Creatinine [Mass/Vol] 1.70 mg/dL High 0.52 - 1.04 mg/dL [facility] GFR/1.73 sq M.predicted MDRD (S/P/Bld) [Vol rate/Area] 30.6 mL/min/{1.73_m2} Low - PINF [facility] Comment on above: Calculation based on the Chronic Kidney Disease Epidemiology Collaboration (CKD-EPI) equation refit without adjustment for race Glucose [Mass/Vol] 122 mg/dL High 70 - 100 mg/dL [facility] Interpretation and review of laboratory results Abnormal [facility] Potassium [Moles/Vol] 4.3 mmol/L 3.5 - 5.1 mmol/L [facility] Sodium [Moles/Vol] 141 mmol/L 135 - 145 mmol/L [facility] Urea nitrogen [Mass/Vol] 33 mg/dL High 7 - 17 mg/dL [facility] C-REACTIVE PROTEINon 024 CRP [Mass/Vol] mg/L Normal <10.0 [facility] Comment on above: Performed By: #### L [id number], [id number], RNP475, LAB15, XDQ545, ZUL022 ####Electromedical Equipment Technician: RUTH ANN BRAGG ([phone])[facility] (SB[facility])[address] [place] [address] CBC W Auto Differential pane l (Bld)on 01-28-2024 Basophils (Bld) [#/Vol] 0.0 10*3/uL 0.0 - 0.2 10*3/uL [facility] Basophils/100 WBC (Bld) 0.4 % 0.0 - 2.0 % [facility] Eosinophils (Bld) [#/Vol] 0.1 10*3/uL 0. 0 - 0.5 10*3/uL [facility] Eosinophils/100 WBC (Bld) 0.7 % 0.0 - 6.0 % [facility] Erythrocyte distribution width (RBC) [Ratio] 13.6 % 11.5 - 15.0 % [facility] Hematocrit (Bld) [Volume fraction] 35.1 % 35.0 - 47.0 % [facility] Hemoglobin (Bld) [Mass/Vol] 11.8 g/dL 11.7 - 16.0 g/dL [facility] Immature granulocytes (Bld) [#/Vol] 0.1 10*3/uL High NINF - 0.1 10*3/uL [facility] Immature granulocytes/100 WBC (Bld) 0.6 % 0.0 - 2.0 % [facility] Interpretation and review of laboratory results Abnormal [facility] Lymphocytes (Bld) [#/Vol] 0.7 10*3/uL Low 1. 0 - 4.3 10*3/uL [facility] Lymphocytes/100 WBC (Bld) 6.3 % Low 15 .0 - 45.0 % [facility] MCH (RBC) [Entitic mass] 32.5 pg 26. 0 - 34.0 pg [facility] MCHC (RBC) [Mass/Vol] 33.6 % 30.5 - 36.0 % [facility] MCV (RBC) [Entitic vol] 96.7 fL 77.0 - 99.0 fL [facility] Monocytes (Bld) [#/Vol] 1.3 10*3/uL High 0.0 - 0.9 10*3/uL [facility] Monocytes/100 WBC (Bld) 12.1 % 5.0 - 13.0 % [facility] Neutrophils (Bld) [#/Vol] 8.6 10*3/uL High 1. 8 - 7.5 10*3/uL [facility] Neutrophils/100 WBC (Bld) 79.9 % 38 .0 - 82.0 % [facility] Nucleated RBC/100 WBC (Bld) [Ratio] 0.0 % [facility] Platelet mean volume (Bld) [Entitic vol] 12.2 fL 9.0 - 12.7 fL [facility] Platelets (Bld) [#/Vol] 105 10*3/uL Low 140 - 440 10*3/uL [facility] RBC (Bld) [#/Vol] 3.63 10*6/uL Low 3.80 - 5.2 0 10*6/uL [facility] WBC (Bld) [#/Vol] 10.8 10*3/uL High 3.6 - 10.7 10*3/uL [facility] CBC WITH AUTO DIFFERENTIALon 01-28-2024 Basophils (Bld) [#/Vol] 0.0 10*3/uL Normal 0.0-0.2 [facility] Comment on above: Performed By: #### L [id number] ####Electromedical Equipment Technician: RUTH ANN BRAGG ([phone])[facility] [place] [address] Basophils/100 WBC (Bld) 0.4 % Normal 0.0-2.0 [facility] Comment on above: Performed By: #### L [id number] ####Electromedical Equipment Technician: RUTH ANN BRAGG ([phone])[facility] ([facility] Eosinophils (Bld) [#/Vol] 0.1 10*3/uL Normal 0.0-0.5 [facility] Comment on above: Performed By: #### L [id number] ####Electromedical Equipment Technician: RUTH ANN BRAGG ([id number])[facility] (SBHL[facility])[address] Eosinophils/100 WBC (Bld) 0.7 % Normal 0.0-6.0 [facility] Comment on above: Performed By: #### L [id number] ####Electromedical Equipment Technician: RUTH ANN BRAGG ([id number])[facility] ([facility])[address] Erythrocyte distribution width (RBC) [Ratio] 13.6 % Normal 11.5-15.0 [facility] Comment on above: Performed By: #### L [id number] ####Electromedical Equipment Technician: RUTH ANN BRAGG ([phone])[facility] ([facility])[address] Hematocrit (Bld) [Volume fraction] 35.1 % Normal 35.0-47.0 [facility] Comment on above: Performed By: #### L [id number] ####Electromedical Equipment Technician: RUTH ANN BRAGG ([phone])[facility] ([facility])[address] Hemoglobin (Bld) [Mass/Vol] 11.8 g/dL Normal 11.7-16.0 [facility] Comment on above: Performed By: #### L [id number] ####Electromedical Equipment Technician: RUTH ANN BRAGG ([phone])[facility] ([facility])[address] IMMATURE GRANS % 0.6 % Normal 0.0-2.0 [facility] Comment on above: Performed By: #### L [id number] ####Electromedical Equipment Technician: RUTH ANN BRAGG ([phone])[facility] ([facility])[address] IMMATURE GRANS ABSOLUTE 0.1 10*3/uL High <0.1 [facility] Comment on above: Performed By: #### L [id number] ####Electromedical Equipment Technician: RUTH ANN BRAGG ([phone])[facility] ([facility])[address] Lymphocytes (Bld) [#/Vol] 0.7 10*3/uL Low 1.0-4.3 [facility] Comment on above: Performed By: #### L [id number] ####Electromedical Equipment Technician: RUTH ANN HERRONSHELTON ([id number])[facility] (SBHLAB)[address] Lymphocytes/100 WBC (Bld) 6.3 % Low 15.0-45.0 [facility] Comment on above: Performed By: #### L [id number] ####Electromedical Equipment Technician: RUTH ANN BRAGG ([id number])[facility] [place] ([facility])[address] MCH (RBC) [Entitic mass] 32.5 pg Normal 26.0-34.0 [facility] Comment on above: Performed By: #### L [id number] ####Electromedical Equipment Technician: RUTH ANN BRAGG ([id number])[facility] [place] (SB[facility])[address] [place] [address] MCHC 33.6 % Normal 30.5-36.0 [facility] Comment on above: Performed By: #### L [id number] ####Electromedical Equipment Technician: RUTH ANN BRAGG ([id number])[facility] (SBHLAB)[address] [place] [address] MCV (RBC) [Entitic vol] 96.7 fL Normal 77.0-99.0 [facility] Comment on above: Performed By: #### L [id number] ####Electromedical Equipment Technician: RUTH ANN BRAGG ([id number])[facility] [place] ([facility])[address] [place] [address] [place] Monocytes (Bld) [#/Vol] 1.3 10*3/uL High 0.0-0.9 [facility] Comment on above: Performed By: #### L [id number] ####Electromedical Equipment Technician: RUTH ANN BRAGG ([id number])[facility] [place] ([facility])[address] Monocytes/100 WBC (Bld) 12.1 % Normal 5.0-13.0 [facility] Comment on above: Performed By: #### L [id number] ####Electromedical Equipment Technician: RUTH ANN BRAGG ([id number])[facility] [place] ([facility])[address] NEUTROPHILS ABSOLUTE 8.6 10*3/uL High 1.8-7.5 [facility] Comment on above: Performed By: #### L [id number] ####Electromedical Equipment Technician: RUTH ANN BRAGG ([id number])[facility] [place] ([facility])[address] Neutrophils/100 WBC (Bld) 79.9 % Normal 38.0-82.0 [facility] Comment on above: Performed By: #### L [id number] ####Electromedical Equipment Technician: RUTH ANN BRAGG ([id number])[facility] [place] ([facility])[address] NRBC 0.0 /100 WBCs Normal 0.0-2.0 [facility] Comment on above: Performed By: #### L [id number] ####Electromedical Equipment Technician: RUTH ANN BRAGG ([id number])[facility] [place] ([facility])[address] Platelet mean volume (Bld) [Entitic vol] 12.2 fL Normal 9.0-12.7 [facility] Comment on above: Performed By: #### L [id number] ####Electromedical Equipment Technician: RUTH ANN BRAGG ([id number])[facility] [place] ([facility])[address] [place] [address] [place] Platelets (Bld) [#/Vol] 105 10*3/uL Low 140-440 [facility] Comment on above: Performed By: #### L [id number] ####Electromedical Equipment Technician: RUTH ANN BRAGG ([id number])[facility] [place] ([facility])[address] RBC (Bld) [#/Vol] 3.63 10*6/uL Low 3.80-5.20 [facility] Comment on above: Performed By: #### L [id number] ####Electromedical Equipment Technician: RUTH ANN BRAGG ([id number])[facility] [place] (SB[facility])[address] WBC (Bld) [#/Vol] 10.8 10*3/uL High 3.6-10.7 [facility] Comment on above: Performed By: #### L [id number] ####Electromedical Equipment Technician: RUTH ANN BRAGG ([phone])[facility] [place] (SBHLAB)[address] COMPLETE URINALYSISon 2023 BACTERIA (#/HPF) IN URINE Many Abnormal Negative [facility] Comment on above: Performed By: #### L [id number] ####Electromedical Equipment Technician: RUTH ANN BRAGG ([id number])[facility] [place] (SB[facility])[address] BILIRUBIN, TOTAL PRESENCE IN URINE Negative Normal Negative [facility] Comment on above: Performed By: #### L AB347 ####Electromedical Equipment Technician: RUTH ANN BRAGG ([id number])[facility] [place] (SB[facility]AB)[address] Clarity (U) Turbid Abnormal Clear [facility] Comment on above: Performed By: #### L [id number] ####Electromedical Equipment Technician: RUTH ANN BRAGG ([id number])[facility] [place] ([facility])[address] Color (U) Yellow Normal Lt. Yellow [facility] Comment on above: Performed By: #### L [id number] ####Electromedical Equipment Technician: RUTH ANN BRAGG ([id number])[facility] ([facility])[address] GLUCOSE (MG/DL) IN URINE Normal Normal Nor mal (<70) [facility] Comment on above: Performed By: #### L [id number] ####Electromedical Equipment Technician: RUTH ANN HERRONSHELTON ([id number])[facility] ([facility])[address] HEMOGLOBIN PRESENCE IN URINE 0.06 mg/dL Abnormal Negative [facility] Comment on above: Performed By: #### L [id number] ####Electromedical Equipment Technician: RUTH ANN HERRONSHELTON ([id number])[facility] ([facility])[address] Ketones Ql (U) Negative Normal Negative [facility] Comment on above: Performed By: #### L [id number] ####Electromedical Equipment Technician: RUTH ANN HERRONSHELTON ([id number])[facility] (SB[facility])[address] LEUKOCYTE ESTERASE PRESENCE IN URINE BY TEST STRIP 250 Yomi/uL Abnormal Negative [facility] Comment on above: Performed By: #### L [id number] ####Electromedical Equipment Technician: RUTH ANN HERRONSHELTON ([id number])[facility] (SBHLAB)[address] [place] [address] [place] MUCUS (#/LPF) IN URINE SEDIMENT Few Normal Negative [facility] Comment on above: Performed By: #### L [id number] ####Electromedical Equipment Technician: RUTH ANN HERRONSHELTON ([id number])[facility] (SBHLAB)[address] NITRITE PRESENCE IN URINE Negative Normal Negative [facility] Comment on above: Performed By: #### L [id number] ####Electromedical Equipment Technician: RUTH ANN HERRONSHELTON ([id number])[facility] [place] ([facility])[address] pH (U) 6.0 [pH] Normal 5.0-8.0 [facility] Comment on above: Performed By: #### L AB347 ####Electromedical Equipment Technician: RUTH ANN BRAGG ([id number])[facility] ([facility])[address] Protein (U) [Mass/Vol] 50 mg/dL Abnormal Negative [facility] Comment on above: Performed By: #### L [id number] ####Electromedical Equipment Technician: RUTH ANN BRAGG ([id number])[facility] [place] ([facility])[address] RBC (#/HPF) IN URINE SEDIMENT 3-5 Abnormal 0-2 [facility] Comment on above: Performed By: #### L [id number] ####Electromedical Equipment Technician: RUTH ANN BRAGG ([id number])[facility] [place] ([facility])[address] Specific gravity (U) [Rel density] 1.015 Normal 1.005-1.030 [facility] Comment on above: Performed By: #### L [id number] ####Electromedical Equipment Technician: RUTH ANN BRAGG ([id number])[facility] [place] (SB[facility])[address] [place] [address] [place] SQUAMOUS EPITHELIAL CELLS (#/HPF) IN URINE SEDIMENT 3-5 Normal 3-5 [facility] Comment on above: Performed By: #### L [id number] ####Electromedical Equipment Technician: RUTH ANN BRAGG ([id number])[facility] [place] ([facility])[address] UROBILINOGEN (MG/DL) IN URINE 2 mg/dL Abnormal Normal (0-1) [facility] Comment on above: Performed By: #### L AB347 ####Electromedical Equipment Technician: RUTH ANN BRAGG ([id number])[facility] [place] ([facility])[address] [place] [address] [place] WBC (LEUKOCYTE) (#/HPF) IN URINE SEDIMENT 26-50 Abnormal 0-5 [facility] Comment on above: Performed By: #### L [id number] ####Electromedical Equipment Technician: RUTH ANN BRAGG ([id number])[facility] [place] ([facility])[address] [place] [address] [place] WBC (LEUKOCYTE) CLUMPS (#/HPF) IN URINE SEDIMENT Rare Abnormal Negative [facility] Comment on above: Performed By: #### L [id number] ####Electromedical Equipment Technician: RUTH ANN BRAGG ([id number])[facility] (SBHLAB)[address] [place] [address] CRP [Mass/Vol]on 01-28-2024 Interpretation and review of laboratory results Normal [facility] HEAD WO IV CONTRASTon CT HEAD WO IV CONTRAST Normal [facility] CT Head WO contraston [address] evidence of an acute intracranial abnormality. Chronic parenchymal changes as described. Report Dictated on Electronically Signed By: Blaise Winters MD Electronically Signed Date/Time: 01/28/2024 6:29 PM EDT [facility] Patient Name: MIKEL WINSTON : 1945 [...] orbits and extracranial soft tissues are unremarkable. [facility] Blaise Winters MD - 01/28/2024 Patient [...] Electronically Signed Date/Time: 01/28/2024 6:29 PM EDT [facility] Radiology Study observation (narrative) [facility] CT Head WO contrastOrdered B y: Blaise Winters on 01-28-2024 [facility] Work Phone: Consulton 01-28-2024 Consult Normal [facility] ED Nursing Noteon 01-28-2024 ED Nursing Note Guided family back Aurora Castellanos EMT 01/28/24 1648 Normal [facility] ED Nursing Note Introduced myself as pt liaison explained role and provided support to son Guy and his Lizzette in [facility], pt arrived via EMS. Aurora Castellanos EMT 01/28/24 1631 Normal [facility] ED Provider Noteon ED Provider Note Normal [facility] FREE T4on 01-28-2024 Free T4 [Mass/Vol] 1.51 ng/dL Normal 0.78-2.19 [facility] Comment on above: Performed By: #### L AB127 ####Electromedical Equipment Technician: RUTH ANN BRAGG ([id number])[facility] ([facility] [place] [address] Free T4 [Mass/Vol]on 024 Free T4 Dialysis [Mass/Vol] 1.51 ng/dL 0.78 - 2.19 ng/dL [facility] HEMOGLOBIN A1Con 01-28-2024 Glucose [Mass/Vol] 128 mg/dL Normal [facility] Comment on above: Performed By: #### L AB90 ####Electromedical Equipment Technician: RUTH ANN BRAGG ([id number])[facility] ([facility])[address] [place] [address] HbA1c (Bld) [Mass fraction] 6.1 % High <5.7 [facility] Comment on above: Result Comment: Norm al less than 5.7%Prediabetes 5.7% to 6.4%Diabetes 6.5% or higher--HgbA1C levels may not be accurate in patients who have renal disease, received recent blood transfusions, are anemic, or who have dyshemoglobinemia. Performed By: #### L AB90 ####Electromedical Equipment Technician: RUTH ANN BRAGG ([id number])[facility] ([facility])[address] [place] [address] LACTIC ACID WITH REFLEXon Lactate [Moles/Vol] 1.4 mmol/L Normal 0.7-2.0 [facility] Comment on above: Performed By: #### L [id number] ####Electromedical Equipment Technician: RUTH ANN BRAGG ([id number])[facility] ([facility])[address] [place] [address] Laboratory - Chemistry and C hemistry - challengeon 01-28-2024 Troponin I.cardiac [Mass/Vol] 0.018 ng/mL NINF - 0.034 ng/mL [facility] Lactate [Moles/Vol] 1.4 mmol/L 0.7 - 2. 0 mmol/L [facility] Glucose [Mass/Vol] 135 mg/dL High 70 - 100 mg/dL [facility] Average glucose Estimated from glycated hemoglobin (Bld) [Mass/Vol] 128 mg/dL [facility] CRP [Mass/Vol] mg/L [facility] - 10.[facility] mg/L [facility] TSH Qn 1.503 m[IU]/L [facility] h Free T3 [Mass/Vol] 3.08 pg/mL 2.77 - 5. 27 pg/mL [facility] Troponin I.cardiac [Mass/Vol] 0.015 ng/mL NINF - 0.034 ng/mL [facility] Laboratory - Hematology and Cell countson 01-28-2024 HbA1c (Bld) [Mass fraction] 6.1 % High [facility] - 5.7 % [facility] Comment on above: Normal less than 5.7 % Prediabetes 5.7% to 6.4% Diabetes 6.5% or higher --HgbA1C levels may not be accurate in patients who have renal disease, received recent blood transfusions, are anemic, or who have dyshemoglobinemia. NT PRO BNPon 01-28-2024 Natriuretic peptide B (Bld) [Mass/Vol] 1480 pg/mL High <20-300 [facility] Comment on above: Performed By: #### L AB137, [id number], [id number], LAB15, PLR887, DSH858 ####Electromedical Equipment Technician: RUTH ANN BRAGG ([id number])[facility] (SBHLAB)[address] [place] [address] Natriuretic peptide B [Mass/ Vol]on 01-28-2024 Interpretation and review of laboratory results Abnormal [facility] Natriuretic peptide B (Bld) [Mass/Vol] 1480 pg/mL High <20 - 300 [facility] No Panel Informationon 01-27 Interpretation and review of laboratory results Normal [facility] Interpretation and review of laboratory results Abnormal [facility] Performed by: [facility], [address] [place] [address] CLIA ID: [id number] [facility] Interpretation and review of laboratory results Abnormal [facility] Interpretation and review of laboratory results Normal [facility] Radiology Study observation (narrative) [facility]m [facility] T3 FREEon 01-28-2024 Free T3 [Mass/Vol] 3.08 pg/mL Normal 2.77-5.27 [facility] Comment on above: Performed By: #### L AB137, [id number], [id number], LAB15, GOH772, WJK174 ####Electromedical Equipment Technician: RUTH ANN BRAGG ([id number])[facility] ([facility])[address] [place] [address] THYROID STIMULATING HORMONEo n 01-28-2024 THYROID STIMULATING HORMONE 1.503 uIU/mL Normal 0.465-4.680 [facility] Comment on above: Performed By: #### L AB137, [id number], [id number], LAB15, ACT316, GEB312 ####Electromedical Equipment Technician: RUTH ANN BRAGG ([id number])[facility] ([facility])[address] [place] [address] TROPONIN Ion 01-28-2024 Troponin I.cardiac [Mass/Vol] 0.018 ng/mL Normal <0.034 [facility] Comment on above: Result Comment: OLIVIA Mazariegos COMMENTS:Patients with high levels of Biotin oral intake (ie >5 mg/day) may have falsely decreased Troponin levels. Performed By: #### L AB747 ####Electromedical Equipment Technician: RUTH ANN BRAGG ([id number])[facility] ([facility])[address] [place] [address] TROPONIN, WITH SERIAL REFLEX on 01-28-2024 Troponin I.cardiac [Mass/Vol] 0.015 ng/mL Normal <0.034 [facility] Comment on above: Result Comment: OLIVIA Mazariegos COMMENTS:Patients with high levels of Biotin oral intake (ie >5 mg/day) may have falsely decreased Troponin levels. Performed By: #### L AB137, [id number], [id number], LAB15, JDL349, VXF050 ####Electromedical Equipment Technician: RUTH ANN BRAGG ([id number])[facility] ([facility])[address] [place] [address] TSH Qnon 01-28-2024 Interpretation and review of laboratory results Normal [facility] Troponin I.cardiac [Mass/Vol ]on 01-28-2024 Interpretation and review of laboratory results Normal [facility] Patients with high levels of Biotin oral intake (ie >5 mg/day) may have falsely decreased Troponin levels. [facility] Interpretation and review of laboratory results Normal [facility] Patients with high levels of Biotin oral intake (ie >5 mg/day) may have falsely decreased Troponin levels. [facility] URINE CULTUREon 01-28-2024 Bacteria identified Cx Nom (U) Normal [facility] Comment on above: Performed By: #### L AB239 ####Electromedical Equipment Technician: CHERYL STOREY ([id number])[facility] ([facility])[address] [place] [address] Urinalysis complete panel (U )Ordered By: Víctor Loza on 01-28-2024 Bacteria LM.HPF (Urine sed) [#/Area] Many Abnormal Negative /HPF [facility] Bilirubin Ql (U) Negative Negative mg/dL [facility] Clarity (U) Turbid Abnormal Clear [facility] Color (U) Yellow Lt. Yellow [facility] Epithelial cells.squamous LM.HPF (Urine sed) [#/Area] 3-5 [facility] Glucose Ql (U) Normal Normal (<70) mg/dL [facility] Hemoglobin Ql (U) 0.06 mg/dL Abnormal Negative [facility] ealth Interpretation and review of laboratory results Abnormal [facility] Ketones (U) [Mass/Vol] Negative Negat balbina mg/dL [facility] Leukocyte clumps LM.HPF (Urine sed) [#/Area] Rare Abnormal Negative /HPF [facility] Leukocyte esterase Test strip Ql (U) 250 Abnormal Negative Yomi/uL [facility] Mucus LM.HPF (Urine sed) [#/Area] Few Negative /LPF [facility] Nitrite Ql (U) Negative Negative [facility] pH (U) 6.0 [pH] 5.0 - 8.0 pH [facility] Protein (U) [Mass/Vol] 50 mg/dL Abnormal Negative [facility] RBC LM.HPF (Urine sed) [#/Area] 3-5 Abnormal [facility] Specific gravity (U) [Rel density] 1.015 1.005 - 1.030 [facility] Urobilinogen (U) [Mass/Vol] 2 mg/dL Abnormal Normal (0-1) [facility] WBC LM.HPF (Urine sed) [#/Area] 26-50 Abnormal [facility] US Retroperitoneumon 01-25-2 024 Radiology Study observation (narrative) Marya mckinney CNOVon 01-06-2024 CNOV Office Visit (FPDOYL) MIKEL WINSTON ([id number]) 1945 F Date Time Provider Department 01/06/24 1:00 PM KOMAL COHN FPDOYL During your visit today, we recorded the following information about you: Temperature Pulse Blood pressure Weight 98 degrees 61/minute 134/70 93.4 kg Height 1.626 m Melanie Ellsworth 05/29/2024 4:07 PM Addendum [facility] Lalit, [address] [place] [address] Date of Evaluation: 01/06/2024 Patient Name: Mikel [...] history is provided by the patient. No mash processing operator was used. Diabetes She presents for her [...] daily for 7 (more content not included)... [facility] Ricki 01-06-2024 JATIN Telephone (HUMBERTODOYL) MIKEL WINSTON ([id number]) 1945 F Date Time Provider Department 01/06/24 KOMAL COHNYL During your visit today, we recorded the following information about you: Sylvia Monroy 01/06/2024 2:51 PM Signed Consult to nephrology CKD chronic kidney disease stage 4 GFR 15-29 ml/min Confirm [id number] Sylvia Monroy Allergies As of Date: 01/06/2024 Noted Allergy Reaction CODEINE 02/24/2016 4 - Hives 2 - Rash CODEINE SULFATE 06/13/2018 16 - Unknown Date Reviewed: 01/06/2024 Reviewed by: Arnel Govea LPN - Fully Assessed Reason for Visit: Consult [502] Cmt: Consult to nephrology, ckd chronic kidney disease state 4 gfr 15-29 confirm [id number] Prescriptions as of 01/06/2024 - atenolol (TENORMIN) [...] 12/01/2022 Systolic murmur [R01.1] 12/26/2022 Platelets decreased ([facility]) [D69.6] 12/26/2022 Depression [F32.A] 12/11/2023 Encounter Status:Closed by SYLVIA MONROY on 01/06/24 [facility] CNPN Telephone (HUMBERTODOYL) MIKEL WINSTON ([id number]) 1945 F Date Time Provider Department 01/06/24 KOMAL COHNDOYL During your visit today, we recorded the following information about you: Sylvia Monroy 01/06/2024 2:50 PM Signed Consult to ophthalmology Screening for diabetic retinopathy Confirm [id number] Sylvia Monroy Allergies As of Date: 01/06/2024 Noted Allergy Reaction CODEINE 02/24/2016 4 - Hives 2 - Rash CODEINE SULFATE 06/13/2018 16 - Unknown Date Reviewed: 01/06/2024 Reviewed by: Arnel Govea LPN - Fully Assessed Reason for Visit: Consult [502] Cmt: Consult to ophthalmology, screening for diabetic retinopathy confirm [id number] Prescriptions as of 01/06/2024 - atenolol (TENORMIN) [...] Status:Closed by SYLVIA MONROY on 01/06/24 Normal [facility] HEMOGLOBIN A1C (POC)on 01-05 HbA1c (Bld) [Mass fraction] 6.5 % Abnormal 4.3 - 5.6 % [facility] Comment on above: Location:[facility], [address] [place] [address], [facility] Point of care (POC) Hemoglobin A1c [...] specific diabetes management situations: The POC device callisthenics instructor provides a normal range of 4.2% to 6.5% for the HGBA1C POC test. However, the [place] [employer] guidelines indicate that patients with [...] Interpretation and review of laboratory results Abnormal 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 and based on her chart, it appears [...] [R60.0] 05/03/2022 Chronic kidney disease, stage 3b ([facility]) [N18.32] 12/01/2022 Acute deep vein thrombosis (DVT) of other speci*12/01/2022 Congestive heart failure, unspecified HF chroni*12/01/2022 Angina at rest ([facility]) [I20.89] 12/01/2022 Obesity, Class I, BMI 30-34.9 [E66.9] 12/01/2022 Systolic murmur [R01.1] 12/26/2022 Platelets decreased ([facility]) [D69.6] 12/26/2022 Depression [F32.A] 12/11/2023 Encounter Status:Closed by ARNEL GOVEA on 01/04/24 [facility] Kaitlin 12-07-2023 CNOV Office Visit (FPDOYL) MIKEL WINSTON ([id number]) 1945 F Date Time Provider Department 12/07/23 10:30 AM KOMAL COHN FPDOYL During your visit today, we recorded the following information about you: Temperature Pulse Blood pressure Weight 98.2 degrees 80/minute 118/60 94.8 kg Height 1.626 m LalitKomal greenbergDO 12/11/2023 10:53 PM Signed [facility] [place] Komal Cohn [address] [place] [address] Date of Evaluation: 12/07/2023 Patient Name: Mikel Winston : 1945 Chief Complaint: Patient presents with: Urinary Frequency: Burning with urination Confusion Leg Edema: Right lower leg, redness, blisters Nursing Intake: There are no exam notes on file for this visit. Subjective Ms. Winston is a 78 year old female who presents with the following complaint(s): The history is provided by the patient. No mash processing operator was used. UTI This is a new [...] citalopram (CELEX (more content not included)... Normal [facility] UA DIP, URINE (POC)on 2023 BILIRUBIN UA (POCT) Negative Negative [facility] CLARITY UA (POCT) Slightly Cloudy [facility] COLOR UA (POCT) Stephanie [facility] GLUCOSE UA (POCT) Negative Negative mg/dL [facility] Hemoglobin Ql (U) Small Abnormal Negative [facility] Interpretation and review of laboratory results Abnormal [facility] KETONE UA (POCT) Negative Negative mg/dL [facility] LEUKOCYTES UA (POCT) Small Abnormal Negative [facility] NITRITE UA (POCT) Positive Abnormal Negative [facility] PH UA (POCT) 5.5 4.5 - 8.0 [facility] Protein Ql (U) 100 mg/dL Abnormal Negative [facility] SPECIFIC GRAVITY UA (POCT) >=1.030 1.005 - 1.030 [facility] UROBILINOGEN UA (POCT) 1.0 Lillian l E.U./dL [facility] Location:[facility], [address] [place] [address], [address] [place] [address] POINT OF CARE [facility] URINE CULTUREon 07-01-2023 Bacteria identified Cx Nom (U) >=100,000 CFU/ml Proteus mirabilis Abnormal [facility] HEMOGLOBIN A1C (POC)on 06-27 HbA1c (Bld) [Mass fraction] 7.2 % Abnormal 4.2 - 5.6 % [facility] UA DIP, URINE (POC)on 2022 BILIRUBIN UA (POCT) Negative Negative [facility] CLARITY UA (POCT) Clear [facility] COLOR UA (POCT) Yellow [facility] GLUCOSE UA (POCT) Negative Negative mg/dL [facility] Hemoglobin Ql (U) Trace-intact Abnormal Negative [facility] KETONE UA (POCT) Negative Negative mg/dL [facility] LEUKOCYTES UA (POCT) Large Abnormal Negative [facility] NITRITE UA (POCT) Negative Negative [facility] PH UA (POCT) 6.0 4.5 - 8.0 [facility] Protein Ql (U) Trace Abnormal Negative mg/dL [facility] SPECIFIC GRAVITY UA (POCT) 1.020 1.005 - 1.030 [facility] UROBILINOGEN UA (POCT) 0.2 E.U./dL Lillian l E.U./dL [facility] URINE CULTUREon 06-27-2023 Bacteria identified Cx Nom (U) Invalid Interpretation Code [facility] No Panel Informationon 03-07 No evidence [...] compressibility. Doppler flow was phasic and spontaneous. [employer] Details A arteaga scale, color Doppler imaging and spectral Doppler analysis ultrasound was performed. During the study longitudinal and transverse views were obtained. Pulsed wave doppler was performed. The exam was performed with the patient in the supine position. Overall the study quality was good. CV CPACS UA DIP, URINE (POC)on 2022 BILIRUBIN UA (POCT) Negative Negative [facility] CLARITY UA (POCT) Clear [facility] COLOR UA (POCT) Yellow [facility] GLUCOSE UA (POCT) Negative Negative mg/dL [facility] HEMOGLOBIN/BLOOD UA (POCT) Trace-lysed Abnormal Negative [facility] KETONE UA (POCT) Negative Negative mg/dL [facility] LEUKOCYTES UA (POCT) Negative Negative [facility] NITRITE UA (POCT) Negative Negative [facility] PH UA (POCT) 5.5 4.5 - 8.0 [facility] Protein Ql (U) Negative Negative mg/dL [facility] SPECIFIC GRAVITY UA (POCT) <=1.005 Abnormal 1.005 - 1.030 [facility] UROBILINOGEN UA (POCT) 1.0 E.U./dL Lillian l E.U./dL [facility] US Heart TransthoracicOrdere d By: Huy Frederick on 12-08-2022 Ascending Aorta 2.8 cm [facility] Work Phone: [phone] Ascending Aorta Index 1.44 cm/m2 [facility] Work Phone: [phone] AV Area by Peak Velocity 1.[address] [facility] Work Phone: [phone] AV Area by VTI 1.[address] [facility] Work Phone: [phone] AV Mean Gradient 21 mmHg [facility] Work Phone: [phone] AV Mean Velocity 2.2 m/s [facility] Work Phone: [phone] AV Peak Gradient 34 mmHg [facility] Work Phone: [phone] AV Peak Velocity 2.9 m/s [facility] Work Phone: [phone] Ratio [address].28 [facility] Work Phone: [phone] [facility] Work Phone: [phone] VINH/BSA Peak Velocity 0.6 cm2/m2 [facility] Work Phone: [phone] VINH/BSA VTI 0.6 cm2/m2 [facility] Work Phone: [phone] EF Physician 45 % [facility] Work Phone: [phone] Fractional Shortening 2D 25 % 28 - 44 % [facility] Work Phone: [phone] Interpretation and review of laboratory results Abnormal [facility] Work Phone: [phone] IVSd 1.1 cm Abnormal 0.6 - 0.9 cm [facility] Work Phone: [phone] LA Diameter 4.6 cm [facility] Work Phone: [phone] LA Size Index 2.37 cm/m2 [facility] Work Phone: [phone] LA Volume 4C 88 mL Abnormal 22 - [address] [facility] Work Phone: [phone] LA Volume Index 4C 45 mL/m2 Abnormal 16 - 34 mL/m2 [facility] Work Phone: LV EDV A2C 140 mL [facility] Work Phone: [phone] LV EDV A4C 157 mL [facility] Work Phone: [phone] LV EDV BP 152 mL Abnormal 56 - 104 mL [facility] Work Phone: [phone] LV EDV Index A2C 72 mL/m2 [facility] Work Phone: [phone] LV EDV Index A4C 81 mL/m2 [facility] Work Phone: [phone] LV EDV Index BP 78 mL/m2 [facility] Work Phone: LV ESV A2C 62 mL [facility] Work Phone: [phone] LV ESV A4C 69 mL [facility] Work Phone: [phone] LV ESV BP 70 mL Abnormal 19 - 49 mL [facility] Work Phone: [phone] LV ESV Index A2C 32 mL/m2 [facility] Work Phone: LV ESV Index A4C 36 mL/m2 [facility] Work Phone: LV ESV Index BP 36 mL/m2 [facility] Work Phone: LV Mass 2D 203.0 g Abnormal 67 - 162 g [facility] Work Phone: LV Mass 2D Index 104.7 g/m2 Abnormal 43 - 95 g/m2 [facility] Work Phone: LV RWT Ratio 0.64 [facility] Work Phone: LVIDd 4.4 cm 3.9 - 5.3 cm [facility] Work Phone: LVIDd Index 2.27 cm/m2 [facility] Work Phone: LVIDs 3.3 cm [facility] Work Phone: [phone] LVIDs Index 1.70 cm/m2 [facility] Work Phone: LVOT Area 4.2 cm2 [facility] Work Phone: LVOT Cardiac Output 5.0 liter/mi nut e [employer] Work Phone: [phone] LVOT Diameter 2.3 cm [place] [employer] Work Phone: [phone] LVOT Mean Gradient [address] [facility] Work Phone: [phone] LVOT Peak Gradient [address] [facility] Work Phone: [phone] LVOT Peak Velocity 0.8 m/s [facility] Work Phone: [phone] LVOT Stroke Volume Index 43.9 mL/m2 [employer] Work Phone: [phone] LVOT SV [address] [facility] Work Phone: [phone] LVOT VTI 20.[address] [facility] Work Phone: [phone] LVOT:AV VTI Index 0.26 [facility] [employer] Work Phone: [phone] LVPWd 1.4 cm Abnormal 0.6 - 0.9 cm [facility] [employer] Work Phone: [phone] MV A Velocity 0.72 m/s [facility] [employer] Work Phone: [phone] MV E Velocity 0.97 m/s [facility] [employer] Work Phone: [phone] MV E Wave Deceleration Time 206.[address] [facility] Phone: [phone] MV E/A 1.35 [facility] [employer] Phone: [phone] RV [place] Peak S' 7 cm/s [facility] [employer] Work Phone: [phone] TAPSE 1.5 cm Abnormal 1.7 cm [facility] [employer] Work Phone: [phone] [facility] Work Phone: [phone] Heart Transthoracicon Left Ventricle: Left ventricle [...] [Ratio] 13.7 % 11.5 - 14.5 % [place] [employer] Hematocrit (Bld) [Volume fraction] 28.4 % Low 35.0 - 47.0 % [place] [employer] Hemoglobin (Bld) [Mass/Vol] 9.3 g/dL Low 11.7 - 16.0 g/dL [place] [employer] MCH (RBC) [Entitic mass] 31.2 pg 26. 0 - 34.0 pg [place] [employer] MCHC (RBC) [Mass/Vol] 32.9 % 32.0 - 36.0 % [place] [employer] MCV (RBC) [Entitic vol] 95.0 fL 80.0 - 98.0 fL [place] [employer] Nucleated RBC/100 WBC (Bld) [Ratio] 0.0 % [place] [employer] Platelet mean volume (Bld) [Entitic vol] 9.8 fL 7.4 - 12.4 fL [place] [employer] Platelets (Bld) [#/Vol] 79 10*3/uL Low 140 - 440 10*3/uL [facility] RBC (Bld) [#/Vol] 2.99 10*6/uL Low 3.8 - 5.20 10*6/uL [facility] WBC (Bld) [#/Vol] 3.5 10*3/uL Low 3.6 - 10.7 10*3/uL [facility] Comprehensive metabolic 1998 panelon 11-19-2022 Albumin [Mass/Vol] 2.7 g/dL Low 3.5 - 5.0 g/dL [facility] ALP [Catalytic activity/Vol] 121 U/L 38 - 126 U/L [facility] ALT [Catalytic activity/Vol] 21 U/L 0 - 34 U/L [facility] Anion gap [Moles/Vol] 3 mmol/L 3 - 13 mmol/L [facility] AST [Catalytic activity/Vol] 39 U/L 15 - 46 U/L [facility] Bilirubin [Mass/Vol] 0.8 mg/dL 0.2 - 1 .3 mg/dL [facility] Calcium [Mass/Vol] 8.3 mg/dL Low 8.4 - 10. 4 mg/dL [facility] Chloride [Moles/Vol] 111 mmol/L High 98 - 10 7 mmol/L [facility] CO2 [Moles/Vol] 21 mmol/L Low 22 - 30 mmol/L [facility] Creatinine [Mass/Vol] 1.31 mg/dL High 0.52 - 1.04 mg/dL [facility] GFR/1.73 sq M.predicted MDRD (S/P/Bld) [Vol rate/Area] 42.1 mL/min/{1.73_m2} Low - PINF [facility] Comment on above: Calculation based on the Chronic Kidney Disease Epidemiology Collaboration (CKD-EPI) equation refit without adjustment for race Glucose [Mass/Vol] 159 mg/dL High 70 - 100 mg/dL [facility] Interpretation and review of laboratory results Abnormal [facility] th Potassium [Moles/Vol] 3.7 mmol/L 3.5 - 5.1 mmol/L [facility] Protein [Mass/Vol] 5.3 g/dL Low 6.3 - 8.2 g/dL [facility] Sodium [Moles/Vol] 135 mmol/L 135 - 145 mmol/L [facility] Urea nitrogen [Mass/Vol] 30 mg/dL High 7 - 17 mg/dL [facility] Laboratory - Chemistry and C hemistry - challengeon 11-19-2022 Glucose [Mass/Vol] 176 mg/dL High 70 - 100 mg/dL [facility] Glucose [Mass/Vol] 117 mg/dL High 70 - 100 mg/dL [facility] Manual differential performe d Ql (Bld)on 11-19-2022 Anisocytosis Ql (Bld) Slight Abnormal (none) [facility] Basophils (Bld) [#/Vol] 0.0 10*3/uL 0.0 - 0.2 10*3/uL [facility] Basophils Manual 1 [facility] alth Basophils/100 WBC (Bld) 1 % 0 - 2 % [facility] Cells Counted Total (Bld) [#] 100 {cells} [facility] Dacrocytes LM Ql (Bld) Rare Abnormal (none) [facility] Eosinophils (Bld) [#/Vol] 0.2 10*3/uL 0. 0 - 0.5 10*3/uL [facility] Eosinophils Manual 5 High 0 - 1 [facility] Eosinophils/100 WBC (Bld) 5 % 1 - 6 % [facility] Leukocyte morphology finding Nom (Bld) Normal [facility] Lymphocytes (Bld) [#/Vol] 0.8 10*3/uL Low 1. 0 - 4.3 10*3/uL [facility] Lymphocytes Manual 22 [facility] Lymphocytes/100 WBC (Bld) 22 % 20 - 40 % [facility] Monocytes (Bld) [#/Vol] 0.5 10*3/uL 0.0 - 0.8 10*3/uL [facility] Monocytes Manual 13 [facility] alth Monocytes/100 WBC (Bld) 13 % High 2 - 10 % [facility] Neutrophils (Bld) [#/Vol] 2.1 10*3/uL 1. 8 - 7.0 10*3/uL [facility] Neutrophils Manual 59 [facility] Ovalocytes LM Ql (Bld) Slight Abnormal (none) [facility] Platelet morphology finding Nom (Bld) Normal [facility] Segmented neutrophils/100 WBC (Bld) 59 % 40 - 80 % [facility] WBC corrected for nucl RBC (Bld) [#/Vol] 3.50 10*3/uL Low 3.60 - 10.70 10*3/uL [facility] No Panel Informationon 11-19 Interpretation and review of laboratory results Abnormal [facility] by: [facility], [address] [facility] [address] CLIA ID: [id number] [facility] Interpretation and review of laboratory results Abnormal [facility] Performed by: [facility], [address] [facility] [address] CLIA ID: [id number] [facility] Interpretation and review of laboratory results Abnormal [facility] Basic metabolic 1998 panelon 11-18-2022 Anion gap [Moles/Vol] 6 mmol/L 3 - 13 mmol/L [facility] Calcium [Mass/Vol] 8.8 mg/dL 8.4 - 10. 4 mg/dL [facility] Chloride [Moles/Vol] 112 mmol/L High 98 - 10 7 mmol/L [facility] CO2 [Moles/Vol] 19 mmol/L Low 22 - 30 mmol/L [facility] Creatinine [Mass/Vol] 1.38 mg/dL High 0.52 - 1.04 mg/dL [facility] GFR/1.73 sq M.predicted MDRD (S/P/Bld) [Vol rate/Area] 39.5 mL/min/{1.73_m2} Low - PINF [facility] Comment on above: Calculation based on the Chronic Kidney Disease Epidemiology Collaboration (CKD-EPI) equation refit without adjustment for race Glucose [Mass/Vol] 129 mg/dL High 70 - 100 mg/dL [facility] Interpretation and review of laboratory results Abnormal [facility] Potassium [Moles/Vol] 3.8 mmol/L 3.5 - 5.1 mmol/L [facility] Sodium [Moles/Vol] 138 mmol/L 135 - 145 mmol/L [facility] Urea nitrogen [Mass/Vol] 35 mg/dL High 7 - 17 mg/dL [facility] Slightly Hemolyzed [facility] CBC W Auto Differential pane l (Bld)on 11-18-2022 Basophils (Bld) [#/Vol] 0.0 10*3/uL 0.0 - 0.2 10*3/uL [facility] Basophils/100 WBC (Bld) 0.7 % 0.0 - 2.0 % [facility] Eosinophils (Bld) [#/Vol] 0.1 10*3/uL 0. 0 - 0.5 10*3/uL [facility] Eosinophils/100 WBC (Bld) 2.5 % 1.0 - 6.0 % [facility] Erythrocyte distribution width (RBC) [Ratio] 13.9 % 11.5 - 14.5 % [facility] Hematocrit (Bld) [Volume fraction] 31.2 % Low 35.0 - 47.0 % [facility] Hemoglobin (Bld) [Mass/Vol] 10.4 g/dL Low 11.7 - 16.0 g/dL [facility] Interpretation and review of laboratory results Abnormal [facility] th Lymphocytes (Bld) [#/Vol] 0.8 10*3/uL Low 1. 0 - 4.3 10*3/uL [facility] Health Lymphocytes/100 WBC (Bld) 21.2 % 20 .0 - 40.0 % [facility] MCH (RBC) [Entitic mass] 31.7 pg 26. 0 - 34.0 pg [facility] MCHC (RBC) [Mass/Vol] 33.2 % 32.0 - 36.0 % [facility] MCV (RBC) [Entitic vol] 95.5 fL 80.0 - 98.0 fL [facility] Monocytes (Bld) [#/Vol] 0.6 10*3/uL 0.0 - 0.8 10*3/uL [facility] Monocytes/100 WBC (Bld) 16.3 % High 2.0 - 10.0 % [facility] Neutrophils (Bld) [#/Vol] 2.2 10*3/uL 1. 8 - 7.0 10*3/uL [facility] Neutrophils/100 WBC (Bld) 59.3 % 40 .0 - 80.0 % [facility] Nucleated RBC/100 WBC (Bld) [Ratio] 0.1 % [facility] Platelet mean volume (Bld) [Entitic vol] 10.3 fL 7.4 - 12.4 fL [facility] Platelets (Bld) [#/Vol] 89 10*3/uL Low 140 - 440 10*3/uL [facility] RBC (Bld) [#/Vol] 3.27 10*6/uL Low 3.8 - 5.20 10*6/uL [facility] WBC (Bld) [#/Vol] 3.6 10*3/uL 3.6 - 10.7 10*3/uL [facility] Health CBC W Auto Differential pane l (Bld)Ordered By: Ovidio Carson on 11-18-2022 Basophils (Bld) [#/Vol] 0.0 10*3/uL 0.0 - 0.2 10*3/uL [facility] Basophils/100 WBC (Bld) 0.5 % 0.0 - 2.0 % [facility] Eosinophils (Bld) [#/Vol] 0.0 10*3/uL 0. 0 - 0.5 10*3/uL [facility] Eosinophils/100 WBC (Bld) 0.9 % Low 1.0 - 6.0 % [facility] Erythrocyte distribution width (RBC) [Ratio] 13.7 % 11.5 - 14.5 % [facility] Hematocrit (Bld) [Volume fraction] 33.2 % Low 35.0 - 47.0 % [facility] Hemoglobin (Bld) [Mass/Vol] 11.2 g/dL Low 11.7 - 16.0 g/dL [facility] Interpretation and review of laboratory results Abnormal [facility] th Lymphocytes (Bld) [#/Vol] 0.7 10*3/uL Low 1. 0 - 4.3 10*3/uL [facility] Health Lymphocytes/100 WBC (Bld) 15.0 % Low 20 .0 - 40.0 % [facility] MCH (RBC) [Entitic mass] 31.6 pg 26. 0 - 34.0 pg [facility] MCHC (RBC) [Mass/Vol] 33.7 % 32.0 - 36.0 % [facility] MCV (RBC) [Entitic vol] 93.8 fL 80.0 - 98.0 fL [facility] Health Monocytes (Bld) [#/Vol] 0.7 10*3/uL 0.0 - 0.8 10*3/uL [facility] Monocytes/100 WBC (Bld) 15.2 % High 2.0 - 10.0 % [facility] Neutrophils (Bld) [#/Vol] 3.0 10*3/uL 1. 8 - 7.0 10*3/uL [facility] Neutrophils/100 WBC (Bld) 68.4 % 40 .0 - 80.0 % [facility] Nucleated RBC/100 WBC (Bld) [Ratio] 0.1 % [facility] Platelet mean volume (Bld) [Entitic vol] 9.7 fL 7.4 - 12.4 fL [facility] Platelets (Bld) [#/Vol] 92 10*3/uL Low 140 - 440 10*3/uL [facility] RBC (Bld) [#/Vol] 3.54 10*6/uL Low 3.8 - 5.20 10*6/uL [facility] WBC (Bld) [#/Vol] 4.4 10*3/uL 3.6 - 10.7 10*3/uL [facility] COVID-19, Flu A/B, and RSV C omboon 11-18-2022 Interpretation and review of laboratory results Normal [facility] Comprehensive metabolic 1998 panelon 11-18-2022 Albumin [Mass/Vol] 3.7 g/dL 3.5 - 5.0 g/dL [facility] ALP [Catalytic activity/Vol] 135 U/L High 38 - 126 U/L [facility] ALT [Catalytic activity/Vol] 29 U/L 0 - 34 U/L [facility] Anion gap [Moles/Vol] 6 mmol/L 3 - 13 mmol/L [facility] AST [Catalytic activity/Vol] 56 U/L High 15 - 46 U/L [facility] Bilirubin [Mass/Vol] 1.1 mg/dL 0.2 - 1 .3 mg/dL [facility] Calcium [Mass/Vol] 9.4 mg/dL 8.4 - 10. 4 mg/dL [facility] Chloride [Moles/Vol] 109 mmol/L High 98 - 10 7 mmol/L [facility] CO2 [Moles/Vol] 22 mmol/L 22 - 30 mmol/L [facility] Creatinine [Mass/Vol] 1.56 mg/dL High 0.52 - 1.04 mg/dL [facility] GFR/1.73 sq M.predicted MDRD (S/P/Bld) [Vol rate/Area] 34.1 mL/min/{1.73_m2} Low - PINF [facility] Comment on above: Calculation based on the Chronic Kidney Disease Epidemiology Collaboration (CKD-EPI) equation refit without adjustment for race Glucose [Mass/Vol] 162 mg/dL High 70 - 100 mg/dL [facility] Interpretation and review of laboratory results Abnormal [facility] Potassium [Moles/Vol] 4.1 mmol/L 3.5 - 5.1 mmol/L [facility] Protein [Mass/Vol] 7.0 g/dL 6.3 - 8.2 g/dL [facility] Sodium [Moles/Vol] 137 mmol/L 135 - 145 mmol/L [facility] Urea nitrogen [Mass/Vol] 38 mg/dL High 7 - 17 mg/dL [facility] Laboratory - Chemistry and C hemistry - challengeon 11-18-2022 Glucose [Mass/Vol] 172 mg/dL High 70 - 100 mg/dL [facility] Glucose [Mass/Vol] 153 mg/dL High 70 - 100 mg/dL [facility] Glucose [Mass/Vol] 126 mg/dL High 70 - 100 mg/dL [facility] Lactate [Moles/Vol] 1.2 mmol/L 0.7 - 2. 0 mmol/L [facility] Laboratory - Microbiology an d Antimicrobial susceptibilityon 11-18-2022 FLUAV RNA HUGO+probe Ql (Resp) Not detected Not Detected [facility] FLUBV RNA HUGO+probe Ql (Resp) Not detected Not Detected [facility] RSV RNA HUGO+probe Ql (Resp) Not detected Not Detected [facility] SARS-CoV-2 (COVID-19) RNA HUGO+probe Ql (Resp) Not detected Not Detected [facility] SARS-CoV-2 (COVID-19) RNA HUGO+probe Ql (Unsp spec) Methodology: real-time, RT-PCR The SARS-CoV-2, Flu A/B, and RSV Combo assay is intended for in vitro diagnostic use under the FDA Emergency Use Authorization (EUA). This test has not been FDA cleared or approved. In compliance with this authorization, please visit www.fda.gov/media/ 8611/download or www.fda.gov/media/ 5480/download to access the applicable information sheets. [facility] No Panel Informationon 11-18 Interpretation and review of laboratory results Abnormal [facility] Performed by: Marya Peterson [facility], [address] [place] [address] [place] [address] CLIA ID: [id number] [facility] Interpretation and review of laboratory results Abnormal [facility]formed by: [facility], [address] [place] [id number] CLIA ID: [id number] [facility] Interpretation and review of laboratory results Abnormal [facility] Performed by: [facility], [address] [place] [address] CLIA ID: [id number] [facility] Interpretation and review of laboratory results Normal [facility] Laboratory - Chemistry and C hemistry - challengeon 11-17-2022 Glucose [Mass/Vol] 203 mg/dL High 70 - 100 mg/dL [facility] No Panel Informationon 11-17 Interpretation and review of laboratory results Abnormal [facility]formed by: [facility], [address] [place] [id number] CLIA ID: [id number] [facility] Urinalysis complete panel (U )Ordered By: Kyung Frederick on 11-17-2022 Bacteria LM.HPF (Urine sed) [#/Area] Moderate Abnormal Negative /HPF [facility] Bilirubin Ql (U) Negative Negative mg/dL [facility] Clarity (U) Clear Clear [facility] Color (U) Yellow Lt. Yellow [facility] Epithelial cells.squamous LM.HPF (Urine sed) [#/Area] 3-5 [facility] Glucose Ql (U) 200 mg/dL Abnormal Normal (<70) [facility] Hemoglobin Ql (U) 0.06 mg/dL Abnormal Negative [facility]alth Interpretation and review of laboratory results Abnormal [facility] Ketones (U) [Mass/Vol] Negative Negat balbina mg/dL [facility] Leukocyte esterase Test strip Ql (U) Negative Negative Yomi/uL [facility] Mucus LM.HPF (Urine sed) [#/Area] Few Negative /LPF [facility] Nitrite Ql (U) Negative Negative [facility] pH (U) 5.5 [pH] 5.0 - 8.0 pH [facility] Protein (U) [Mass/Vol] 50 mg/dL Abnormal Negative [facility] RBC LM.HPF (Urine sed) [#/Area] 0-2 [facility] Specific gravity (U) [Rel density] 1.020 1.005 - 1.030 [facility] Urobilinogen (U) [Mass/Vol] Normal Normal (0-1) mg/dL [facility] WBC LM.HPF (Urine sed) [#/Area] 3-5 [facility] XR Chest Single viewon 11-17 1. No acute finding suspected given very low lung volumes. Report Dictated on Electronically Signed By: Clinton Serna Electronically Signed Date/Time: 11/17/2022 11:45 PM EDT [facility] Patient Name: MIKEL WINSTON : 1945 [...] no vascular congestion or airspace consolidation suspected. [facility] Clinton Serna MD - 11/17/2022 Patient [...] Electronically Signed Date/Time: 11/17/2022 11:45 PM EDT [facility] Radiology Study observation (narrative) [facility] XR Chest Single viewOrdered By: Clinotn Serna on 11-17-2022 [facility] [employer] Work Phone: CNCOon 08-05-2022 [facility] Letter Text Normal [facility] Basic metabolic 2000 panelon 05-03-2022 Anion gap [Moles/Vol] 12 mmol/L 9 - 18 mmol/L [facility] Calcium [Mass/Vol] 10.6 mg/dL High 8.5 - 10. 2 mg/dL [facility] Chloride [Moles/Vol] 103 mmol/L 97 - 10 5 mmol/L [facility] CO2 [Moles/Vol] 26 mmol/L 22 - 30 mmol/L [facility] Creatinine [Mass/Vol] 1.83 mg/dL High 0.58 - 0.96 mg/dL [facility] Estimated Glomerular Filtration Rate 28 mL/min/1.73m Low >=60 mL/min/1.73 m [facility] Glucose [Mass/Vol] 154 mg/dL High 74 - 99 mg/dL [facility] Potassium [Moles/Vol] 4.5 mmol/L 3.7 - 5.1 mmol/L [facility] Sodium [Moles/Vol] 141 mmol/L 136 - 144 mmol/L [facility] Urea nitrogen [Mass/Vol] 37 mg/dL High 7 - 21 mg/dL [facility] HbA1c (Bld)on 05-03-2022 Average glucose Estimated from glycated hemoglobin (Bld) [Mass/Vol] 151 mg/dL [facility] HbA1c (Bld) [Mass fraction] 6.9 % High 4.3 - 5.6 % [facility] Comp Panel with Mg Reflexon 12-22-2021 Calcium [Mass/Vol] 9.4 mg/dL Normal 8.4-10.4 [facility] Comment on above: Performed By: #### B GLU #### [facility] [address] [place] [address] ALP [Catalytic activity/Vol] 108 U/L Normal 38-126 [facility] Comment on above: Performed By: #### B GLU #### [facility] [address] [place] [address] ALT [Catalytic activity/Vol] 14 U/L Normal 0-34 [facility] Comment on above: Result Comment: The ALT test is performed by an updated assay method. Please note that the reference intervals have been changed and are now sex specific. Performed By: #### B GLU #### [facility] [address] [place] [address] Anion gap [Moles/Vol] 5 mmol/L Normal 3-13 [facility] Comment on above: Performed By: #### B GLU #### [facility] [address] [place] [address] AST [Catalytic activity/Vol] 39 U/L Normal 15-46 [facility] Comment on above: Performed By: #### B GLU #### [facility] [address] [place] [address] Bilirubin [Mass/Vol] 1.0 mg/dL Normal 0.2-1.3 [facility] Comment on above: Performed By: #### B GLU #### [facility] [address] [place] [address] CO2 [Moles/Vol] 28 mmol/L Normal 22-30 [facility] Comment on above: Performed By: #### B GLU #### [facility] [address] [place] [address] Glucose [Mass/Vol] 124 mg/dL High 70-100 [facility] Comment on above: Performed By: #### B GLU #### [facility] [address] [place] [address] Protein [Mass/Vol] 6.1 g/dL Low 6.3-8.2 [facility] Comment on above: Performed By: #### B GLU #### [facility] [address] [place] [address] Urea nitrogen [Mass/Vol] 20 mg/dL Normal 9-20 [facility] Comment on above: Performed By: #### B GLU #### [facility] [address] [place] [address] Creatinine [Mass/Vol] 0.98 mg/dL Normal 0.52-1.25 [facility] Comment on above: Performed By: #### B GLU #### [facility] [address] [place] [address] GFR/1.73 sq M.predicted among blacks MDRD (S/P/Bld) [Vol rate/Area] 64.7 mL/min/{1.73_m2} Normal >60 [facility] Comment on above: Performed By: #### B GLU #### [facility] [address] [place] [address] GFR/1.73 sq M.predicted among non-blacks MDRD (S/P/Bld) [Vol rate/Area] 55.9 mL/min/{1.73_m2} Abnormal >60 [facility] Comment on above: Result Comment: KDIG O [...] secretion. Performed By: #### B GLU #### [facility] [address] [place] [address] Albumin [Mass/Vol] 3.1 g/dL Low 3.5-5.0 [facility] Comment on above: Performed By: #### B GLU #### [facility] [address] [place] [address] Chloride [Moles/Vol] 103 mmol/L Normal 98-107 [facility] Comment on above: Performed By: #### B GLU #### [facility] [address] [place] [address] Potassium [Moles/Vol] 4.1 mmol/L Normal 3.5-5.1 [facility] Comment on above: Performed By: #### B GLU #### [facility] [address] [place] [address] Sodium [Moles/Vol] 136 mmol/L Normal 135-145 [facility] Comment on above: Performed By: #### B GLU #### [facility] [address] [place] [address] Comprehensive Metabolic Pane l w/ Reflex to MGon 12-22-2021 Albumin [Mass/Vol] 3.1 g/dL Low 3.5 - 5.0 g/dL [facility] ALP (Bld) [Catalytic activity/Vol] 108 U/L 38 - 126 U/L [facility] ALT [Catalytic activity/Vol] 14 U/L 0 - 34 U/L [facility] Comment on above: The ALT test is [...] - 1.25 mg/dL [facility] EGFR IF NonAfrican Dominican 55.9 mL/min Abnormal >60 [facility] Comment on above: KDIGO guidelines pro vide [...] 124 mg/dL High 70 - 100 mg/dL [facility] Interpretation and review of laboratory results Abnormal [facility] Potassium [Moles/Vol] 4.1 mmol/L 3.5 - 5.1 mmol/L [facility] Sodium [Moles/Vol] 136 mmol/L 135 - 145 mmol/L [facility] Urea nitrogen (BldV) [Mass/Vol] 20 mg/dL 9 - 20 mg/dL [facility] Test Performed by [facility], [address] [place], [place] [address] [place] [address] LAB [facility] Glucose,Bedsideon 12-22-2021 Glucose [Mass/Vol] 117 mg/dL High 70-100 [facility] Comment on above: Result Comment: Test performed by glucose meter. Results may be 10%-15% lower than serum/plasma values. (CLIA ID [id number]) Performed By: #### B NP3, CMP3, HEMDF #### [facility] [address] [place] [address] Glucose [Mass/Vol] 164 mg/dL High 70-100 [facility] Comment on above: Result Comment: Test performed by glucose meter. Results may be 10%-15% lower than serum/plasma values. (CLIA ID [id number]) Performed By: #### B GLU #### [facility] [address] [place] [address] Glucose [Mass/Vol] 115 mg/dL High 70-100 [facility] Comment on above: Result Comment: Test performed by glucose meter. Results may be 10%-15% lower than serum/plasma values. (CLIA ID [id number]) Performed By: #### B GLU #### [facility] [address] [place] [address] POCT Glucoseon 12-22-2021 Glucose [Mass/Vol] 117 mg/dL High 70 - 100 mg/dL [facility] Work Phone: [phone] Comment on above: Test performed by gl ucose meter. Results may be 10%-15% lower than serum/plasma values. (CLIA ID [id number]) Interpretation and review of laboratory results Abnormal [facility] Work Phone: [phone] Test Performed by [facility], [address] LAB [facility] Work Phone: [phone] Test Performed by [facility], [address] LAB Glucose [Mass/Vol] 115 mg/dL High 70 - 100 mg/dL [facility] Work Phone: [phone] Comment on above: Test performed by gl ucose meter. Results may be 10%-15% lower than serum/plasma values. (CLIA ID [id number]) Interpretation and review of laboratory results Abnormal [facility] Work Phone: [phone] Test Performed by [facility] [employer], [address] LAB [facility] Work Phone: [phone] POCT GlucoseOrdered By: Johny Biggs on 12-22-2021 Glucose [Mass/Vol] 164 mg/dL High 70 - 100 mg/dL [facility] Work Phone: Comment on above: Test performed by gl ucose meter. Results may be 10%-15% lower than serum/plasma values. (CLIA ID [id number]) Interpretation and review of laboratory results Abnormal [facility] Work Phone: [facility] Work Phone: Comp Panel with Mg Reflexon 12-21-2021 ALP [Catalytic activity/Vol] 102 U/L Normal 38-126 [facility] Comment on above: Performed By: #### B GLU #### [facility] [address] [place] [address] ALT [Catalytic activity/Vol] 14 U/L Normal 0-34 [facility] Comment on above: Result Comment: The ALT test is performed by an updated assay method. Please note that the reference intervals have been changed and are now sex specific. Performed By: #### B GLU #### [facility] [address] [place] [address] AST [Catalytic activity/Vol] 40 U/L Normal 15-46 [facility] Comment on above: Performed By: #### B GLU #### [facility] [address] [place] [address] Calcium [Mass/Vol] 9.4 mg/dL Normal 8.4-10.4 [facility] Comment on above: Performed By: #### B GLU #### [facility] [address] [place] [address] Glucose [Mass/Vol] 122 mg/dL High 70-100 [facility] Comment on above: Performed By: #### B GLU #### [facility] [address] [place] [address] Protein [Mass/Vol] 5.8 g/dL Low 6.3-8.2 [facility] Comment on above: Performed By: #### B GLU #### [facility] [address] [place] [address] Urea nitrogen [Mass/Vol] 22 mg/dL High 9-20 [facility] Comment on above: Performed By: #### B GLU #### [facility] [address] [place] [address] Anion gap [Moles/Vol] 3 mmol/L Normal 3-13 [facility] Comment on above: Performed By: #### B GLU #### [facility] [address] [place] [address] Bilirubin [Mass/Vol] 0.9 mg/dL Normal 0.2-1.3 [facility] Comment on above: Performed By: #### B GLU #### [facility] [address] [place] [address] CO2 [Moles/Vol] 31 mmol/L High 22-30 [facility] Comment on above: Performed By: #### B GLU #### [facility] [address] [place] [address] Creatinine [Mass/Vol] 1.01 mg/dL Normal 0.52-1.25 [facility] Comment on above: Performed By: #### B GLU #### [facility] [address] [place] [address] GFR/1.73 sq M.predicted among blacks MDRD (S/P/Bld) [Vol rate/Area] 62.4 mL/min/{1.73_m2} Normal >60 [facility] Comment on above: Performed By: #### B GLU #### [facility] [address] [place] [address] GFR/1.73 sq M.predicted among non-blacks MDRD (S/P/Bld) [Vol rate/Area] 53.9 mL/min/{1.73_m2} Abnormal >60 [facility] Comment on above: Result Comment: KDIG O [...] secretion. Performed By: #### B GLU #### [facility] [address] [place] [address] Albumin [Mass/Vol] 3.0 g/dL Low 3.5-5.0 [facility] Comment on above: Performed By: #### B GLU #### [facility] [address] [place] [address] Chloride [Moles/Vol] 103 mmol/L Normal 98-107 [facility] Comment on above: Performed By: #### B GLU #### [facility] [address] [place] [address] Potassium [Moles/Vol] 3.9 mmol/L Normal 3.5-5.1 [facility] Comment on above: Performed By: #### B GLU #### [facility] [address] [place] [address] Sodium [Moles/Vol] 137 mmol/L Normal 135-145 [facility] Comment on above: Performed By: #### B GLU #### [facility] [address] [place] [address] Comprehensive Metabolic Pane l w/ Reflex to MGon 12-21-2021 Albumin [Mass/Vol] 3.0 g/dL Low 3.5 - 5.0 g/dL [facility] ALP (Bld) [Catalytic activity/Vol] 102 U/L 38 - 126 U/L [facility] ALT [Catalytic activity/Vol] 14 U/L 0 - 34 U/L [facility] Comment on above: The ALT test is [...] - 1.25 mg/dL [facility] EGFR IF NonAfrican Dominican 53.9 mL/min Abnormal >60 [facility] Comment on [...] 122 mg/dL High 70 - 100 mg/dL [facility] Interpretation and review of laboratory results Abnormal [facility] Potassium [Moles/Vol] 3.9 mmol/L 3.5 - 5.1 mmol/L [facility] Sodium [Moles/Vol] 137 mmol/L 135 - 145 mmol/L [facility] Urea nitrogen (BldV) [Mass/Vol] 22 mg/dL High 9 - 20 mg/dL [facility] Test Performed by [facility], [address] [place], [place] [address] [place] [address] LAB [facility] Glucose,Bedsideon 12-21-2021 Glucose [Mass/Vol] 139 mg/dL High 70-100 [facility] Comment on above: Result Comment: Test performed by glucose meter. Results may be 10%-15% lower than serum/plasma values. (CLIA ID [id number]) Performed By: #### B NP3, CMP3, HEMDF #### [facility] [address] [place] [address] Glucose [Mass/Vol] 99 mg/dL Normal 70-100 [facility] Comment on above: Result Comment: Test performed by glucose meter. Results may be 10%-15% lower than serum/plasma values. (CLIA ID [id number]) Performed By: #### B NP3, CMP3, HEMDF #### [facility] [address] [place] [address] Glucose [Mass/Vol] 156 mg/dL High 70-100 [facility] Comment on above: Result Comment: Test performed by glucose meter. Results may be 10%-15% lower than serum/plasma values. (CLIA ID [id number]) Performed By: #### B GLU #### [facility] [address] [place] [address] Glucose [Mass/Vol] 123 mg/dL High 70-100 [facility] Comment on above: Result Comment: Test performed by glucose meter. Results may be 10%-15% lower than serum/plasma values. (CLIA ID [id number]) Performed By: #### B GLU #### [facility] [address] [place] [address] POCT Glucoseon 12-21-2021 Glucose [Mass/Vol] 139 mg/dL High 70 - 100 mg/dL [facility] Work Phone: Comment on above: Test performed by gl ucose meter. Results may be 10%-15% lower than serum/plasma values. (CLIA ID [id number]) Interpretation and review of laboratory results Abnormal [facility] Work Phone: Test Performed by [facility], [facility] [address] LAB [facility] Work Phone: Glucose [Mass/Vol] 99 mg/dL 70 - 100 mg/dL [facility] Work Phone: Comment on above: Test performed by gl ucose meter. Results may be 10%-15% lower than serum/plasma values. (CLIA ID [id number]) Test Performed by [facility], [address] LAB [facility] Work Phone: Glucose [Mass/Vol] 156 mg/dL High 70 - 100 mg/dL [facility] Work Phone: Comment on above: Test performed by gl ucose meter. Results may be 10%-15% lower than serum/plasma values. (CLIA ID [id number]) Interpretation and review of laboratory results Abnormal [facility] Work Phone: Test Performed by [facility], [address] LAB [facility] Work Phone: Glucose [Mass/Vol] 123 mg/dL High 70 - 100 mg/dL [facility] Work Phone: Comment on above: Test performed by gl ucose meter. Results may be 10%-15% lower than serum/plasma values. (CLIA ID [id number]) Interpretation and review of laboratory results Abnormal [facility] Work Phone: Test Performed by [facility], [address] [place] [address] [facility] LAB [facility] Work Phone: CULTURE BLOODon 12-20-2021 Microscopic examination of blood, culture CULTURE BLOOD --> Status: F No growth at 5 days. Normal [facility] Comment on above: Performed By: #### B NP3, CMP3, HEMDF #### [facility] [address] [place] [address] CULTURE BLOOD (Two)on 2021 Microscopic examination of blood, culture CULTURE BLOOD (Two) --> Status: F No growth at 5 days. Normal [facility] Comment on above: Performed By: #### B GLU #### [facility] [address] [place] [address] Comp Panel with Mg Reflexon 12-20-2021 ALP [Catalytic activity/Vol] 88 U/L Normal 38-126 [facility] Comment on above: Performed By: #### B NP3, CMP3, HEMDF #### [facility] [address] [place] [address] ALT [Catalytic activity/Vol] 13 U/L Normal 0-34 [facility] Comment on above: Result Comment: The ALT test is performed by an updated assay method. Please note that the reference intervals have been changed and are now sex specific. Performed By: #### B NP3, CMP3, HEMDF #### [facility] [address] [place] [address] Anion gap [Moles/Vol] 3 mmol/L Normal 3-13 [facility] Comment on above: Performed By: #### B NP3, CMP3, HEMDF #### [facility] [address] [place] [address] AST [Catalytic activity/Vol] 85 U/L High 15-46 [facility] Comment on above: Performed By: #### B NP3, CMP3, HEMDF #### [facility] [address] [place] [address] Bilirubin [Mass/Vol] 1.2 mg/dL Normal 0.2-1.3 [facility] Comment on above: Performed By: #### B NP3, CMP3, HEMDF #### [facility] [address] [place] [address] Calcium [Mass/Vol] 9.3 mg/dL Normal 8.4-10.4 [facility] Comment on above: Performed By: #### B NP3, CMP3, HEMDF #### [facility] [address] [place] [address] CO2 [Moles/Vol] 33 mmol/L High 22-30 [facility] Comment on above: Performed By: #### B NP3, CMP3, HEMDF #### [facility] [address] [place] [address] Glucose [Mass/Vol] 125 mg/dL High 70-100 [facility] Comment on above: Performed By: #### B NP3, CMP3, HEMDF #### [facility] [address] [place] [address] Protein [Mass/Vol] 6.0 g/dL Low 6.3-8.2 [facility] Comment on above: Performed By: #### B NP3, CMP3, HEMDF #### [facility] [address] [place] [address] Urea nitrogen [Mass/Vol] 26 mg/dL High 9-20 [facility] Comment on above: Performed By: #### B NP3, CMP3, HEMDF #### [facility] [address] [place] [address] Creatinine [Mass/Vol] 1.02 mg/dL Normal 0.52-1.25 [facility] Comment on above: Performed By: #### B NP3, CMP3, HEMDF #### [facility] [address] [place] [address] GFR/1.73 sq M.predicted among blacks MDRD (S/P/Bld) [Vol rate/Area] 61.7 mL/min/{1.73_m2} Normal >60 [facility] Comment on above: Performed By: #### B NP3, CMP3, HEMDF #### [facility] [address] [place] [address] GFR/1.73 sq M.predicted among non-blacks MDRD (S/P/Bld) [Vol rate/Area] 53.2 mL/min/{1.73_m2} Abnormal >60 [facility] Comment on above: Result Comment: KDIG O [...] By: #### B NP3, CMP3, HEMDF #### [facility] [address] [place] [address] Albumin [Mass/Vol] 3.2 g/dL Low 3.5-5.0 [facility] Comment on above: Performed By: #### B NP3, CMP3, HEMDF #### [facility] [address] [place] [address] Chloride [Moles/Vol] 101 mmol/L Normal 98-107 [facility] Comment on above: Performed By: #### B NP3, CMP3, HEMDF #### [facility] [address] [place] [address] Potassium [Moles/Vol] 3.8 mmol/L Normal 3.5-5.1 [facility] Comment on above: Performed By: #### B NP3, CMP3, HEMDF #### [facility] [address] [place] [address] Sodium [Moles/Vol] 136 mmol/L Normal 135-145 [facility] Comment on above: Performed By: #### B NP3, CMP3, HEMDF #### [facility] [address] [place] [address] Comprehensive Metabolic Pane l w/ Reflex to MGon 12-20-2021 Albumin [Mass/Vol] 3.2 g/dL Low 3.5 - 5.0 g/dL [facility] ALP (Bld) [Catalytic activity/Vol] 88 U/L 38 - 126 U/L [facility] ALT [Catalytic activity/Vol] 13 U/L 0 - 34 U/L [facility] Comment on above: The ALT test is [...] - 1.25 mg/dL [facility] EGFR IF NonAfrican Dominican 53.2 mL/min Abnormal >60 [facility] Comment on [...] 125 mg/dL High 70 - 100 mg/dL [facility] Interpretation and review of laboratory results Abnormal [facility] Potassium [Moles/Vol] 3.8 mmol/L 3.5 - 5.1 mmol/L [facility] Sodium [Moles/Vol] 136 mmol/L 135 - 145 mmol/L [facility] Urea nitrogen (BldV) [Mass/Vol] 26 mg/dL High 9 - 20 mg/dL [facility] Test Performed by [facility], [address] LAB [facility] Glucose,Bedsideon 12-20-2021 Glucose [Mass/Vol] 155 mg/dL High 70-100 [facility] Comment on above: Result Comment: Test performed by glucose meter. Results may be 10%-15% lower than serum/plasma values. (CLIA ID [id number]) Performed By: #### B NP3, CMP3, HEMDF #### [facility] [address] [place] [address] Glucose [Mass/Vol] 116 mg/dL High 70-100 [facility] Comment on above: Result Comment: Test performed by glucose meter. Results may be 10%-15% lower than serum/plasma values. (CLIA ID [id number]) Performed By: #### B NP3, CMP3, HEMDF #### [facility] [address] [place] [address] Glucose [Mass/Vol] 139 mg/dL High 70-100 [facility] Comment on above: Result Comment: Test performed by glucose meter. Results may be 10%-15% lower than serum/plasma values. (CLIA ID [id number]) Performed By: #### B GLU #### [facility] [address] [place] [address] Glucose [Mass/Vol] 135 mg/dL High 70-100 [facility] Comment on above: Result Comment: Test performed by glucose meter. Results may be 10%-15% lower than serum/plasma values. (CLIA ID [id number]) Performed By: #### B GLU #### [facility] [address] [place] [address] No Panel Informationon 12-20 Blood Culture, Routine No growth at 5 days. [facility] Test Performed by [facility], [address] [place] [address] [facility] LAB [facility] POCT Glucoseon 12-20-2021 Glucose [Mass/Vol] 155 mg/dL High 70 - 100 mg/dL [facility] Work Phone: Comment on above: Test performed by gl ucose meter. Results may be 10%-15% lower than serum/plasma values. (CLIA ID [id number]) Interpretation and review of laboratory results Abnormal [facility] Work Phone: Test Performed by [facility], [address] [place], [place] [id number] [place] [address] LAB [facility] Work Phone: Glucose [Mass/Vol] 116 mg/dL High 70 - 100 mg/dL [facility] Comment on above: Test performed by gl ucose meter. Results may be 10%-15% lower than serum/plasma values. (CLIA ID [id number]) Interpretation and review of laboratory results Abnormal [facility] Test Performed by [facility], [address] [place], [place] [id number] [place] [address] LAB [facility] Glucose [Mass/Vol] 139 mg/dL High 70 - 100 mg/dL [facility] Comment on above: Test performed by gl ucose meter. Results may be 10%-15% lower than serum/plasma values. (CLIA ID [id number]) Interpretation and review of laboratory results Abnormal [facility] Test Performed by [facility], [address] [place], [place] [id number] [place] [address] LAB [facility] Glucose [Mass/Vol] 135 mg/dL High 70 - 100 mg/dL [facility] Work Phone: Comment on above: Test performed by gl ucose meter. Results may be 10%-15% lower than serum/plasma values. (CLIA ID [id number]) Interpretation and review of laboratory results Abnormal [facility] Work Phone: Test Performed by [facility], [address] [place], [place] [id number] [place] [address] LAB [facility] Work Phone: Vancomycinon 12-20-2021 Vancomycin 22.8 ug/mL High 15.0-20.0 [facility] Comment on above: Result Comment: . Performed By: #### B GLU #### [facility] [address] [place] [address] Vancomycin Level, Randomon 0 12-20-2021 Interpretation and review of laboratory results Abnormal [facility] Vancomycin 22.8 ug/mL High 15.0 - 20.0 ug/mL [facility] Comment on above: . Test Performed by [facility], [address] [place], [place] [id number] [place] [address] [facility] Comp Panel with Mg Reflexon 12-19-2021 ALP [Catalytic activity/Vol] 104 U/L Normal 38-126 [facility] Comment on above: Performed By: #### B NP3, CMP3, HEMDF #### [facility] [address] [place] [address] ALT [Catalytic activity/Vol] 12 U/L Normal 0-34 [facility] Comment on above: Result Comment: The ALT test is performed by an updated assay method. Please note that the reference intervals have been changed and are now sex specific. Performed By: #### B NP3, CMP3, HEMDF #### [facility] [address] [place] [address] AST [Catalytic activity/Vol] 49 U/L High 15-46 [facility] Comment on above: Performed By: #### B NP3, CMP3, HEMDF #### [facility] [address] [place] [address] Calcium [Mass/Vol] 9.1 mg/dL Normal 8.4-10.4 [facility] Comment on above: Performed By: #### B NP3, CMP3, HEMDF #### [facility] [address] [place] [address] Glucose [Mass/Vol] 117 mg/dL High 70-100 [facility] Comment on above: Performed By: #### B NP3, CMP3, HEMDF #### [facility] [address] [place] [address] Protein [Mass/Vol] 5.8 g/dL Low 6.3-8.2 [facility] Comment on above: Performed By: #### B NP3, CMP3, HEMDF #### [facility] [address] [place] [address] Urea nitrogen [Mass/Vol] 26 mg/dL High 9-20 [facility] Comment on above: Performed By: #### B NP3, CMP3, HEMDF #### [facility] [address] [place] [address] Anion gap [Moles/Vol] 2 mmol/L Low 3-13 [facility] Comment on above: Performed By: #### B NP3, CMP3, HEMDF #### [facility] [address] [place] [address] Bilirubin [Mass/Vol] 1.0 mg/dL Normal 0.2-1.3 [facility] Comment on above: Performed By: #### B NP3, CMP3, HEMDF #### [facility] [address] [place] [address] CO2 [Moles/Vol] 31 mmol/L High 22-30 [facility] Comment on above: Performed By: #### B NP3, CMP3, HEMDF #### [facility] [address] [place] [address] Creatinine [Mass/Vol] 1.13 mg/dL Normal 0.52-1.25 [facility] Comment on above: Performed By: #### B NP3, CMP3, HEMDF #### [facility] [address] [place] [address] GFR/1.73 sq M.predicted among blacks MDRD (S/P/Bld) [Vol rate/Area] 54.5 mL/min/{1.73_m2} Abnormal >60 [facility] Comment on above: Performed By: #### B NP3, CMP3, HEMDF #### [facility] [address] [place] [address] GFR/1.73 sq M.predicted among non-blacks MDRD (S/P/Bld) [Vol rate/Area] 47.0 mL/min/{1.73_m2} Abnormal >60 [facility] Comment on above: Result Comment: KDIG O [...] By: #### B NP3, CMP3, HEMDF #### [facility] [address] [place] [address] Albumin [Mass/Vol] 2.9 g/dL Low 3.5-5.0 [facility] Comment on above: Performed By: #### B NP3, CMP3, HEMDF #### [facility] [address] [place] [address] Chloride [Moles/Vol] 101 mmol/L Normal 98-107 [facility] Comment on above: Performed By: #### B NP3, CMP3, HEMDF #### [facility] [address] [place] [address] Potassium [Moles/Vol] 3.7 mmol/L Normal 3.5-5.1 [facility] Comment on above: Performed By: #### B NP3, CMP3, HEMDF #### [facility] [address] [place] [address] Sodium [Moles/Vol] 133 mmol/L Low 135-145 [facility] Comment on above: Performed By: #### B NP3, CMP3, HEMDF #### [facility] [address] [place] [address] Comprehensive Metabolic Pane l w/ Reflex to [...] - 1.25 mg/dL [facility] EGFR IF NonAfrican Dominican 47.0 mL/min Abnormal >60 [facility] Comment on [...] 5.8 g/dL Low 6.3 - 8.2 g/dL [facility] GFR/1.73 sq M.predicted among blacks MDRD (S/P/Bld) [Vol rate/Area] 54.5 mL/min/{1.73_m2} Abnormal >60 [facility] Glucose [Mass/Vol] 117 mg/dL High 70 - 100 mg/dL [facility] Interpretation and review of laboratory results Abnormal [facility] Potassium [Moles/Vol] 3.7 mmol/L 3.5 - 5.1 mmol/L [facility] Sodium [Moles/Vol] 133 mmol/L Low 135 - 145 mmol/L [facility] Urea nitrogen (BldV) [Mass/Vol] 26 mg/dL High 9 - 20 mg/dL [facility] Test Performed by [facility], [address] [place], [place] [id number] [place] [address] LAB [facility] Glucose,Bedsideon 12-19-2021 Glucose [Mass/Vol] 186 mg/dL High 70-100 [facility] Comment on above: Result Comment: Test performed by glucose meter. Results may be 10%-15% lower than serum/plasma values. (CLIA ID [id number]) Performed By: #### B NP3, CMP3, HEMDF #### [facility] [address] [place] [address] Glucose [Mass/Vol] 148 mg/dL High 70-100 [facility] Comment on above: Result Comment: Test performed by glucose meter. Results may be 10%-15% lower than serum/plasma values. (CLIA ID [id number]) Performed By: #### B NP3, CMP3, HEMDF #### [facility] [address] [place] [address] Glucose [Mass/Vol] 124 mg/dL High 70-100 [facility] Comment on above: Result Comment: Test performed by glucose meter. Results may be 10%-15% lower than serum/plasma values. (CLIA ID [id number]) Performed By: #### B GLU #### [facility] [address] [place] [address] Glucose [Mass/Vol] 120 mg/dL High 70-100 [facility] Comment on above: Result Comment: Test performed by glucose meter. Results may be 10%-15% lower than serum/plasma values. (CLIA ID [id number]) Performed By: #### B GLU #### [facility] [address] [place] [id number] POCT GlucoseOrdered By: Kings Cancino on 12-19-2021 Glucose [Mass/Vol] 186 mg/dL High 70 - 100 mg/dL [facility] Comment on above: Test performed by gl ucose meter. Results may be 10%-15% lower than serum/plasma values. (CLIA ID [id number]) Interpretation and review of laboratory results Abnormal [facility] POCT Glucoseon 12-19-2021 Test Performed by [facility], [address] LAB Glucose [Mass/Vol] 148 mg/dL High 70 - 100 mg/dL [facility] Comment on above: Test performed by gl ucose meter. Results may be 10%-15% lower than serum/plasma values. (CLIA ID [id number]) Interpretation and review of laboratory results Abnormal [facility] Test Performed by [facility], [address] LAB [facility] Glucose [Mass/Vol] 124 mg/dL High 70 - 100 mg/dL [facility] Comment on above: Test performed by gl ucose meter. Results may be 10%-15% lower than serum/plasma values. (CLIA ID [id number]) Interpretation and review of laboratory results Abnormal [facility] Test Performed by [facility], [address] LAB [facility] Glucose [Mass/Vol] 120 mg/dL High 70 - 100 mg/dL [facility] Comment on above: Test performed by gl ucose meter. Results may be 10%-15% lower than serum/plasma values. (CLIA ID [id number]) Interpretation and review of laboratory results Abnormal [facility] Test Performed by [facility], [address] [place], [place] [id number] [place] [address] LAB [facility] Vancomycin Level, Troughon 0 12-19-2021 Interpretation and review of laboratory results Abnormal [facility] Vancomycin Tr 27 ug/mL High 15.0 - 20.0 ug/mL [facility] Comment on above: . Test Performed by [facility], [address] [place], [place] [id number] [place] [address] LAB [facility] Vancomycin Troughon 12-20-19 22 Vancomycin Trough 27.0 ug/mL High 15.0-20.[facility] Comment on above: Result Comment: . Performed By: #### B NP3, CMP3, HEMDF #### [facility] [address] [place] [address] Brain Natriuretic Peptideon 12-18-2021 Natriuretic peptide B (Bld) [Mass/Vol] 7432 pg/mL High 0 - 450 pg/mL [facility] CBC with Auto Differentialon 12-18-2021 Absolute Baso # 0.1 10*3/uL 0.0 - 0.2 10*3/uL [facility] Absolute Neut # 3.8 10*3/uL 1.8 - 7.0 10*3/uL [facility] Hemoglobin.gastrointestin al spec 1 Ql (Stl) 10.4 g/dL Low 11.7 - 16.0 g/dL [facility] MCHC (RBC) [Mass/Vol] 33.8 % 32.0 - 36.0 % [facility] Platelet distribution width (Bld) [Ratio] 13.0 % 11.5 - 14.5 % [facility] Comp Metabolic Panelon 12-18 ALT [Catalytic activity/Vol] 11 U/L Normal 0-34 [facility] Comment on above: Result Comment: The ALT test is performed by an updated assay method. Please note that the reference intervals have been changed and are now sex specific. Performed By: #### B NP3, CMP3, HEMDF #### [facility] [address] [place] [address] Calcium [Mass/Vol] 9.1 mg/dL Normal 8.4-10.4 [facility] Comment on above: Performed By: #### B NP3, CMP3, HEMDF #### [facility] [address] [place] [address] Glucose [Mass/Vol] 121 mg/dL High 70-100 [facility] Comment on above: Performed By: #### B NP3, CMP3, HEMDF #### [facility] [address] [place] [address] Urea nitrogen [Mass/Vol] 24 mg/dL High 9-20 [facility] Comment on above: Performed By: #### B NP3, CMP3, HEMDF #### [facility] [address] [place] [address] ALP [Catalytic activity/Vol] 98 U/L Normal 38-126 [facility] Comment on above: Performed By: #### B NP3, CMP3, HEMDF #### [facility] [address] [place] [address] Anion gap [Moles/Vol] 1 mmol/L Low 3-13 [facility] Comment on above: Performed By: #### B NP3, CMP3, HEMDF #### [facility] [address] [place] [address] AST [Catalytic activity/Vol] 53 U/L High 15-46 [facility] Comment on above: Performed By: #### B NP3, CMP3, HEMDF #### [facility] [address] [place] [address] Bilirubin [Mass/Vol] 0.9 mg/dL Normal 0.2-1.3 [facility] Comment on above: Performed By: #### B NP3, CMP3, HEMDF #### [facility] [address] [place] [address] CO2 [Moles/Vol] 30 mmol/L Normal 22-30 [facility] Comment on above: Performed By: #### B NP3, CMP3, HEMDF #### [facility] [address] [place] [address] Creatinine [Mass/Vol] 1.01 mg/dL Normal 0.52-1.25 [facility] Comment on above: Performed By: #### B NP3, CMP3, HEMDF #### [facility] [address] [place] [address] GFR/1.73 sq M.predicted among blacks MDRD (S/P/Bld) [Vol rate/Area] 62.4 mL/min/{1.73_m2} Normal >60 [facility] Comment on above: Performed By: #### B NP3, CMP3, HEMDF #### [facility] [address] [place] [address] GFR/1.73 sq M.predicted among non-blacks MDRD (S/P/Bld) [Vol rate/Area] 53.9 mL/min/{1.73_m2} Abnormal >60 [facility] Comment on above: Result Comment: KDIG O [...] By: #### B NP3, CMP3, HEMDF #### [facility] [address] [place] [address] Protein [Mass/Vol] 6.1 g/dL Low 6.3-8.2 [facility] Comment on above: Performed By: #### B NP3, CMP3, HEMDF #### [facility] [address] [place] [address] Potassium [Moles/Vol] 3.7 mmol/L Normal 3.5-5.1 [facility] Comment on above: Performed By: #### B NP3, CMP3, HEMDF #### [facility] [address] [place] [address] Sodium [Moles/Vol] 134 mmol/L Low 135-145 [facility] Comment on above: Performed By: #### B NP3, CMP3, HEMDF #### [facility] [address] [place] [address] Albumin [Mass/Vol] 3.0 g/dL Low 3.5-5.0 [facility] Comment on above: Performed By: #### B NP3, CMP3, HEMDF #### [facility] [address] [place] [address] Chloride [Moles/Vol] 104 mmol/L Normal 98-107 [facility] Comment on above: Performed By: #### B NP3, CMP3, HEMDF #### [facility] [address] [place] [address] Comprehensive Metabolic Pane smith 12-18-2021 Albumin [Mass/Vol] [...] - 1.25 mg/dL [facility] EGFR IF NonAfrican Dominican 53.9 mL/min Abnormal >60 [facility] Comment on [...] 24 mg/dL High 9 - 20 mg/dL [facility] Glucose,Bedsideon 12-18-2021 Glucose [Mass/Vol] 155 mg/dL High 70-100 [facility] Comment on above: Result Comment: Test performed by glucose meter. Results may be 10%-15% lower than serum/plasma values. (CLIA ID [id number]) Performed By: #### B NP3, CMP3, HEMDF #### [employer] [address] [place] [address] Glucose [Mass/Vol] 122 mg/dL High 70-100 [facility] Comment on above: Result Comment: Test performed by glucose meter. Results may be 10%-15% lower than serum/plasma values. (CLIA ID [id number]) Performed By: #### B GLU #### [employer] [address] [place] [address] Glucose [Mass/Vol] 168 mg/dL High 70-100 [facility] Comment on above: Result Comment: Test performed by glucose meter. Results may be 10%-15% lower than serum/plasma values. (CLIA ID [id number]) Performed By: #### B GLU #### [facility] [address] [place] [address] Glucose [Mass/Vol] 124 mg/dL High 70-100 [facility] Comment on above: Result Comment: Test performed by glucose meter. Results may be 10%-15% lower than serum/plasma values. (CLIA ID [id number]) Performed By: #### B GLU #### [facility] [address] [place] [address] Hemogram w/ Autodiffon 12-18 Abs Baso Cnt 0.1 10*3/uL Normal 0.0-0.2 [facility] Comment on above: Performed By: #### B NP3, CMP3, HEMDF #### [facility] [address] [place] [address] Abs Neutrophile Cnt 3.8 10*3/uL Normal 1.8-7.0 [facility] Comment on above: Performed By: #### B NP3, CMP3, HEMDF #### [facility] [address] [place] [address] Basophils/100 WBC (Bld) 0.8 % Normal 0.0-2.0 [facility] Comment on above: Performed By: #### B NP3, CMP3, HEMDF #### [facility] [address] [place] [address] Eosinophils (Bld) [#/Vol] 0.3 10*3/uL Normal 0.0-0.5 [facility] Comment on above: Performed By: #### B NP3, CMP3, HEMDF #### [facility] [address] [place] [address] Eosinophils/100 WBC (Bld) 5.2 % Normal 1.0-6.0 [facility] Comment on above: Performed By: #### B NP3, CMP3, HEMDF #### [facility] [address] [place] [address] Erythrocyte distribution width (RBC) [Ratio] 13.0 % Normal 11.5-14.5 [facility] Comment on above: Performed By: #### B NP3, CMP3, HEMDF #### [facility] [address] [place] [address] Granulocytes/100 WBC (Bld) 61.3 % Normal 40.0-80.0 [facility] Comment on above: Performed By: #### B NP3, CMP3, HEMDF #### [facility] [address] [place] [address] Hematocrit (Bld) [Volume fraction] 30.8 % Low 35.0-47.0 [facility] Comment on above: Performed By: #### B NP3, CMP3, HEMDF #### [facility] [address] [place] [address] Hemoglobin (Bld) [Mass/Vol] 10.4 g/dL Low 11.7-16.0 [facility] Comment on above: Performed By: #### B NP3, CMP3, HEMDF #### [facility] [address] [place] [address] Lymphocytes (Bld) [#/Vol] 1.1 10*3/uL Normal 1.0-4.3 [facility] Comment on above: Performed By: #### B NP3, CMP3, HEMDF #### [facility] [address] [place] [address] Lymphocytes/100 WBC (Bld) 16.8 % Low 20.0-40.0 [facility] Comment on above: Performed By: #### B NP3, CMP3, HEMDF #### [facility] [address] [place] [address] MCH (RBC) [Entitic mass] 32.8 pg Normal 26.0-34.0 [facility] Comment on above: Performed By: #### B NP3, CMP3, HEMDF #### [facility] [address] [place] [address] MCHC 33.8 % Normal 32.0-36.0 [facility] Comment on above: Performed By: #### B NP3, CMP3, HEMDF #### [facility] [address] [place] [address] MCV (RBC) [Entitic vol] 97.1 fL Normal 79.0-98.0 [facility] Comment on above: Performed By: #### B NP3, CMP3, HEMDF #### [facility] [address] [place] [address] Monocytes (Bld) [#/Vol] 1.0 10*3/uL High 0.0-0.8 [facility] Comment on above: Performed By: #### B NP3, CMP3, HEMDF #### [facility] [address] [place] [address] Monocytes/100 WBC (Bld) 15.9 % High 2.0-10.0 [facility] Comment on above: Performed By: #### B NP3, CMP3, HEMDF #### [facility] [address] [place] [address] Platelet mean volume (Bld) [Entitic vol] 9.9 fL Normal 7.4-12.4 [facility] Comment on above: MPV is a calculated measurement using platelet volume ratio. Result Comment: MPV is a calculated measurement using platelet volume ratio. Performed By: #### B NP3, CMP3, HEMDF #### [facility] [address] [place] [address] Platelets (Bld) [#/Vol] 108 10*3/uL Low 140-440 [facility] Comment on above: Performed By: #### B NP3, CMP3, HEMDF #### [facility] [address] [place] [address] RBC (Bld) [#/Vol] 3.17 10*6/uL Low 3.80-5.20 [facility] Comment on above: Performed By: #### B NP3, CMP3, HEMDF #### [facility] [address] [place] [address] WBC (Bld) [#/Vol] 6.3 10*3/uL Normal 3.6-10.7 [facility] Comment on above: Performed By: #### B NP3, CMP3, HEMDF #### [facility] [address] [place] [address] NT pro BNPon 05-13-2022 Natriuretic peptide B (Bld) [Mass/Vol] 7432 pg/mL High 0-450 [facility] Comment on above: Performed By: #### B NP3, CMP3, HEMDF #### [facility] [address] [place] [address] No Panel Informationon 12-18 Interpretation and review of laboratory results Abnormal [facility] Test Performed by [facility], [address] LAB [facility] POCT GlucoseOrdered By: Geovani Figueroa on 12-18-2021 Glucose [Mass/Vol] 155 mg/dL High 70 - 100 mg/dL [facility] Work Phone: Comment on above: Test performed by gl ucose meter. Results may be 10%-15% lower than serum/plasma values. (CLIA ID [id number]) Interpretation and review of laboratory results Abnormal [facility] Work Phone: [facility] Work Phone: POCT Glucoseon 12-18-2021 Test Performed by [facility], [address] LAB Glucose [Mass/Vol] 122 mg/dL High 70 - 100 mg/dL [facility] Work Phone: Comment on above: Test performed by gl ucose meter. Results may be 10%-15% lower than serum/plasma values. (CLIA ID [id number]) Interpretation and review of laboratory results Abnormal [facility] Work Phone: Test Performed by [facility], [address] LAB [facility] Work Phone: Test Performed by [facility], [address] LAB Glucose [Mass/Vol] 124 mg/dL High 70 - 100 mg/dL [facility] Work Phone: Comment on above: Test performed by gl ucose meter. Results may be 10%-15% lower than serum/plasma values. (CLIA ID [id number]) Interpretation and review of laboratory results Abnormal [facility] Work Phone: Test Performed by [facility], [address], [place], [place] [address] [facility] Work Phone: POCT GlucoseOrdered By: Mikhail Levine on 12-18-2021 Glucose [Mass/Vol] 168 mg/dL High 70 - 100 mg/dL [facility] Work Phone: Comment on above: Test performed by gl ucose meter. Results may be 10%-15% lower than serum/plasma values. (CLIA ID [id number]) Interpretation and review of laboratory results Abnormal [facility] Work Phone: [facility] Work Phone: CR Chest PA/LATon 12-17-2021 CR Chest PA/LAT Patient Name: MIKEL WINSTON Diagnostic Radiology ACCESSION EXAM DATE/TIME PROCEDURE ORDERING PROVIDER [id number] 12/17/2021 16:43 EDT CR Chest PA and LAT YULYVÍCTOR ARIEL CPT code 70519 Reason For Exam (CR Chest PA and [...] Transcribed Date and Time: 12/17/2021 6:57 Normal [facility] [employer] Comp Panel with Mg Reflexon 12-17-2021 ALP [Catalytic activity/Vol] 101 U/L Normal 38-126 [facility] Comment on above: Performed By: #### B GLU #### [facility] [address] [place] [address] ALT [Catalytic activity/Vol] 12 U/L Normal 0-34 [facility] Comment on above: Result Comment: The ALT test is performed by an updated assay method. Please note that the reference intervals have been changed and are now sex specific. Performed By: #### B GLU #### [facility] [address] [place] [address] AST [Catalytic activity/Vol] 42 U/L Normal 15-46 [facility] Comment on above: Performed By: #### B GLU #### [facility] [address] [place] [address] Calcium [Mass/Vol] 8.9 mg/dL Normal 8.4-10.4 [facility] Comment on above: Performed By: #### B GLU #### [facility] [address] [place] [address] Glucose [Mass/Vol] 157 mg/dL High 70-100 [facility] Comment on above: Performed By: #### B GLU #### [facility] [address] [place] [address] Protein [Mass/Vol] 5.7 g/dL Low 6.3-8.2 [facility] Comment on above: Performed By: #### B GLU #### [facility] [address] [place] [address] Urea nitrogen [Mass/Vol] 28 mg/dL High 9-20 [facility] Comment on above: Performed By: #### B GLU #### [facility] [address] [place] [address] Anion gap [Moles/Vol] 3 mmol/L Normal 3-13 [facility] Comment on above: Performed By: #### B GLU #### [facility] [address] [place] [address] Bilirubin [Mass/Vol] 0.8 mg/dL Normal 0.2-1.3 [facility] Comment on above: Performed By: #### B GLU #### [facility] [address] [place] [address] CO2 [Moles/Vol] 28 mmol/L Normal 22-30 [facility] Comment on above: Performed By: #### B GLU #### [facility] [address] [place] [address] Creatinine [Mass/Vol] 1.06 mg/dL Normal 0.52-1.25 [facility] Comment on above: Performed By: #### B GLU #### [facility] [address] [place] [address] GFR/1.73 sq M.predicted among blacks MDRD (S/P/Bld) [Vol rate/Area] 58.9 mL/min/{1.73_m2} Abnormal >60 [facility] Comment on above: Performed By: #### B GLU #### [facility] [address] [place] [address] GFR/1.73 sq M.predicted among non-blacks MDRD (S/P/Bld) [Vol rate/Area] 50.8 mL/min/{1.73_m2} Abnormal >60 [facility] Comment on above: Result Comment: KDIG O [...] secretion. Performed By: #### B GLU #### [facility] [address] [place] [address] Albumin [Mass/Vol] 2.9 g/dL Low 3.5-5.0 [facility] Comment on above: Performed By: #### B GLU #### [facility] [address] [place] [address] Chloride [Moles/Vol] 105 mmol/L Normal 98-107 [facility] Comment on above: Performed By: #### B GLU #### [facility] [address] [place] [address] Potassium [Moles/Vol] 3.4 mmol/L Low 3.5-5.1 [facility] Comment on above: Performed By: #### B GLU #### [facility] [address] [place] [address] Sodium [Moles/Vol] 137 mmol/L Normal 135-145 [facility] Comment on above: Performed By: #### B GLU #### [facility] [address] [place] [address] Comprehensive Metabolic Pane l w/ Reflex to MGon 12-17-2021 Albumin [Mass/Vol] 2.9 g/dL Low 3.5 - 5.0 g/dL [facility] ALP (Bld) [Catalytic activity/Vol] 101 U/L 38 - 126 U/L [facility] ALT [Catalytic activity/Vol] 12 U/L 0 - 34 U/L [facility] Comment on above: The ALT test is [...] - 1.25 mg/dL [facility] EGFR IF NonAfrican Dominican 50.8 mL/min Abnormal >60 [facility] Comment on [...] 157 mg/dL High 70 - 100 mg/dL [facility] Interpretation and review of laboratory results Abnormal [facility] Potassium [Moles/Vol] 3.4 mmol/L Low 3.5 - 5.1 mmol/L [facility] Sodium [Moles/Vol] 137 mmol/L 135 - 145 mmol/L [facility] Urea nitrogen (BldV) [Mass/Vol] 28 mg/dL High 9 - 20 mg/dL [facility] Test Performed by [facility], [address] [place], [place] [address] [facility] Glucose,Bedsideon 12-17-2021 Glucose [Mass/Vol] 170 mg/dL High 70-100 [facility] Comment on above: Result Comment: Test performed by glucose meter. Results may be 10%-15% lower than serum/plasma values. (CLIA ID [id number]) Performed By: #### B NP3, CMP3, HEMDF #### [facility] [address] [place] [address] Glucose [Mass/Vol] 128 mg/dL High 70-100 [facility] Comment on above: Result Comment: Test performed by glucose meter. Results may be 10%-15% lower than serum/plasma values. (CLIA ID [id number]) Performed By: #### B GLU #### [facility] [address] [place] [address] Glucose [Mass/Vol] 149 mg/dL High 70-100 [facility] Comment on above: Result Comment: Test performed by glucose meter. Results may be 10%-15% lower than serum/plasma values. (CLIA ID [id number]) Performed By: #### B NP3, CMP3, HEMDF #### [facility] [address] [place] [address] Glucose [Mass/Vol] 159 mg/dL High 70-100 [facility] Comment on above: Result Comment: Test performed by glucose meter. Results may be 10%-15% lower than serum/plasma values. (CLIA ID [id number]) Performed By: #### B GLU #### [facility] [address] [place] [address] Magnesiumon 12-17-2021 Magnesium [Mass/Vol] 1.5 mg/dL Low 1.6-2.3 [facility] Comment on above: Performed By: #### B GLU #### [facility] [address] [place] [address] Interpretation and review of laboratory results Abnormal [facility] Magnesium [Mass/Vol] 1.5 mg/dL Low 1.6 - 2 .3 mg/dL [facility] Test Performed by [facility], [facility] [address] LAB [facility] POCT Glucoseon 12-17-2021 Glucose [Mass/Vol] 170 mg/dL High 70 - 100 mg/dL [facility] Work Phone: Comment on above: Test performed by gl ucose meter. Results may be 10%-15% lower than serum/plasma values. (CLIA ID [id number]) Interpretation and review of laboratory results Abnormal [facility] Work Phone: Test Performed by [facility], [facility] [address] LAB [facility] Work Phone: Test Performed by [facility], [address] [place], [place] [id number] [place] [address] LAB Glucose [Mass/Vol] 149 mg/dL High 70 - 100 mg/dL [facility] Work Phone: Comment on above: Test performed by gl ucose meter. Results may be 10%-15% lower than serum/plasma values. (CLIA ID [id number]) Interpretation and review of laboratory results Abnormal [facility] Work Phone: Test Performed by [facility] [employer], [address] LAB [facility] Work Phone: [phone] Glucose [Mass/Vol] 159 mg/dL High 70 - 100 mg/dL [facility] Work Phone: [phone] Comment on above: Test performed by gl ucose meter. Results may be 10%-15% lower than serum/plasma values. (CLIA ID [id number]) Interpretation and review of laboratory results Abnormal [facility] Work Phone: [phone] Test Performed by [facility], [address] LAB [facility] Work Phone: POCT GlucoseOrdered By: Jenny Velásquez on 12-17-2021 Glucose [Mass/Vol] 128 mg/dL High 70 - 100 mg/dL [facility] Work Phone: Comment on above: Test performed by gl ucose meter. Results may be 10%-15% lower than serum/plasma values. (CLIA ID [id number]) Interpretation and review of laboratory results Abnormal [facility] Work Phone: [facility] Work Phone: Vancomycin Level, Troughon 0 12-17-2021 Interpretation and review of laboratory results Abnormal [facility] Vancomycin Tr 11.4 ug/mL Low 15.0 - 20.0 ug/mL [facility] Comment on above: . Test Performed by [facility] [employer], [address] LAB [facility] Vancomycin Troughon 12-18-19 Vancomycin Trough 11.4 ug/mL Low 15.0-20.0 [facility] Comment on above: Result Comment: . Performed By: #### B NP3, CMP3, HEMDF #### [facility] [address] [place] [address] XR CHEST (2 VW)on 12-17-2021 Patient Name: MIKEL IWNSTON Diagnostic Radiology ACCESSION EXAM DATE/TIME PROCEDURE ORDERING PROVIDER [id number] 12/17/2021 16:43 EDT CR Chest PA & LAT ARIEL SOLITARIO CPT code 43459 Reason For Exam (CR Chest PA & [...] NELSON Transcribed Date and Time: 12/17/2021 6:57 [facility] Winston Berger. MD Nahid - 12/17/2021 Patient Name: MIKEL WINSTON Diagnostic Radiology ACCESSION EXAM DATE/TIME PROCEDURE ORDERING PROVIDER [id number] 12/17/2021 16:43 EDT CR Chest PA & LAT ARIEL SOLITARIO CPT code 07289 Reason For Exam (CR Chest PA & [...] NELSON Transcribed Date and Time: 12/17/2021 6:57 [facility] Work Phone: Radiology Study observation (narrative) [facility] Work Phone: XR CHEST (2 VW)Ordered By: Winston Berger on 12-17-2021 Reissued Work Phone: CULTURE BLOODon 12-16-2021 Microscopic examination of blood, culture 1 Organism Enterococcus faecalis Isolated: For identification and/or sensitivity, refer to culture collected on: 12/13/2021 at 1518 ([id number]). Normal [facility] Comment on above: Performed By: #### B NP3, CMP3, HEMDF #### [facility] [address] [place] [address] CULTURE BLOOD (Two)on 2021 Microscopic examination of blood, culture CULTURE BLOOD (Two) --> Status: F Enterococcus faecalis DETECTED; Leticia/B Not Detected. Presumptive identification performed using Image Searcher PCR methodology; confirmatory identification to follow. _ The [employer] BCID2 PCR Panel can detect the following [...] VIM, and mcr-1. Presumptive identification performed using [employer] PCR methodology; confirmatory identification to follow. _ The [employer] BCID2 PCR Panel can detect the following [...] R Streptomycin High Level synergy(CHRISTA)SYN-R R Normal [employer] Comment on above: Performed By: #### B NP3, CMP3, HEMDF #### [employer] [address] [place] [address] Comp Panel with Mg Reflexon 12-16-2021 Calcium [Mass/Vol] 8.5 mg/dL Normal 8.4-10.4 [facility] Comment on above: Performed By: #### B GLU #### [facility] [address] [place] [address] ALP [Catalytic activity/Vol] 73 U/L Normal 38-126 [facility] Comment on above: Performed By: #### B GLU #### [facility] [address] [place] [address] ALT [Catalytic activity/Vol] 14 U/L Normal 0-34 [facility] Comment on above: Result Comment: The ALT test is performed by an updated assay method. Please note that the reference intervals have been changed and are now sex specific. Performed By: #### B GLU #### [facility] [address] [place] [address] Anion gap [Moles/Vol] 3 mmol/L Normal 3-13 [facility] Comment on above: Performed By: #### B GLU #### [facility] [address] [place] [address] AST [Catalytic activity/Vol] 42 U/L Normal 15-46 [facility] Comment on above: Performed By: #### B GLU #### [facility] [address] [place] [address] Bilirubin [Mass/Vol] 1.0 mg/dL Normal 0.2-1.3 [facility] Comment on above: Performed By: #### B GLU #### [facility] [address] [place] [address] CO2 [Moles/Vol] 27 mmol/L Normal 22-30 [facility] Comment on above: Performed By: #### B GLU #### [facility] [address] [place] [address] Glucose [Mass/Vol] 140 mg/dL High 70-100 [facility] Comment on above: Performed By: #### B GLU #### [facility] [address] [place] [address] Protein [Mass/Vol] 5.5 g/dL Low 6.3-8.2 [facility] Comment on above: Performed By: #### B GLU #### [facility] [address] [place] [address] Urea nitrogen [Mass/Vol] 27 mg/dL High 9-20 [facility] Comment on above: Performed By: #### B GLU #### [facility] [address] [place] [address] Creatinine [Mass/Vol] 1.28 mg/dL High 0.52-1.25 [facility] Comment on above: Performed By: #### B GLU #### [facility] [address] [place] [address] GFR/1.73 sq M.predicted among blacks MDRD (S/P/Bld) [Vol rate/Area] 46.9 mL/min/{1.73_m2} Abnormal >60 [facility] Comment on above: Performed By: #### B GLU #### [facility] [address] [place] [address] GFR/1.73 sq M.predicted among non-blacks MDRD (S/P/Bld) [Vol rate/Area] 40.4 mL/min/{1.73_m2} Abnormal >60 [facility] Comment on above: Result Comment: KDIG O [...] secretion. Performed By: #### B GLU #### [facility] [address] [place] [address] Albumin [Mass/Vol] 2.7 g/dL Low 3.5-5.0 [facility] Comment on above: Performed By: #### B GLU #### [facility] [address] [place] [address] Chloride [Moles/Vol] 101 mmol/L Normal 98-107 [facility] Comment on above: Performed By: #### B GLU #### [facility] [address] [place] [address] Potassium [Moles/Vol] 3.0 mmol/L Low 3.5-5.1 [facility] Comment on above: Performed By: #### B GLU #### [facility] [address] [place] [address] Sodium [Moles/Vol] 131 mmol/L Low 135-145 [facility] Comment on above: Performed By: #### B GLU #### [facility] [address] [place] [address] Comprehensive Metabolic Pane l w/ Reflex to MGon 12-16-2021 Albumin [Mass/Vol] 2.7 g/dL Low 3.5 - 5.0 g/dL [facility] ALP (Bld) [Catalytic activity/Vol] 73 U/L 38 - 126 U/L [facility] ALT [Catalytic activity/Vol] 14 U/L 0 - 34 U/L [facility] Comment on above: The ALT test is [...] - 1.25 mg/dL [facility] EGFR IF NonAfrican Dominican 40.4 mL/min Abnormal >60 [facility] Comment on [...] 140 mg/dL High 70 - 100 mg/dL [facility] Interpretation and review of laboratory results Abnormal [facility] Potassium [Moles/Vol] 3.0 mmol/L Low 3.5 - 5.1 mmol/L [facility] Sodium [Moles/Vol] 131 mmol/L Low 135 - 145 mmol/L [facility] Urea nitrogen (BldV) [Mass/Vol] 27 mg/dL High 9 - 20 mg/dL [facility] Test Performed by [facility], [address] [place] [id number] [place] [address] LAB [facility] Culture, Bloodon 12-16-2021 Blood Culture, Routine Isolated: For identification and/or sensitivity, refer to culture collected on: 12/13/2021 at 1518 ([id number]). [facility] Culture, Blood 2on 2 Blood Culture, Routine Enterococcus faecalis DETECTED; Leticia/B Not Detected. Presumptive identification performed using Image Searcher PCR methodology; confirmatory identification to follow. _ The Image Searcher BCID2 PCR Panel can detect the following [...] KPC, NDM, OXA-48-like, VIM, and mcr-1. Abnormal [facility] Blood Culture, Routine Isolated: PRINCE [facility] Glucose,Bedsideon 12-16-2021 Glucose [Mass/Vol] 208 mg/dL High 70-100 [facility] Comment on above: Result Comment: Test performed by glucose meter. Results may be 10%-15% lower than serum/plasma values. (CLIA ID [id number]) Performed By: #### B NP3, CMP3, HEMDF #### [employer] [address] [place] [address] Glucose [Mass/Vol] 153 mg/dL High [address] Comment on above: Result Comment: Test performed by glucose meter. Results may be 10%-15% lower than serum/plasma values. (CLIA ID [id number]) Performed By: #### B NP3, CMP3, HEMDF #### [employer] [address] [place] [address] Glucose [Mass/Vol] 169 mg/dL High [address] Comment on above: Result Comment: Test performed by glucose meter. Results may be 10%-15% lower than serum/plasma values. (CLIA ID [id number]) Performed By: #### B GLU #### [facility] [address] [place] [address] Glucose [Mass/Vol] 150 mg/dL High [address] [facility] Comment on above: Result Comment: Test performed by glucose meter. Results may be 10%-15% lower than serum/plasma values. (CLIA ID [id number]) Performed By: #### B NP3, CMP3, HEMDF #### [facility] [address] [place] [address] Magnesiumon 12-16-2021 Magnesium [Mass/Vol] 1.3 mg/dL Low 1.6-2.3 [facility] Comment on above: Performed By: #### B GLU #### [facility] [address] [place] [address] Interpretation and review of laboratory results Abnormal [facility] Magnesium [Mass/Vol] 1.3 mg/dL Low 1.6 - 2 .3 mg/dL [facility] Test Performed by [facility], [address] [place], [place] [id number] [place] [address] LAB [facility] No Panel Informationon 12-16 Blood Culture, Routine Enterococcus faecalis Abnormal [facility] Interpretation and review of laboratory results Abnormal [facility] Test Performed by [facility], [address] [place] [address] [facility] LAB [facility] POCT GlucoseOrdered By: Andie Cornell on 12-16-2021 Glucose [Mass/Vol] 208 mg/dL High 70 - 100 mg/dL [facility] Comment on above: Test performed by gl ucose meter. Results may be 10%-15% lower than serum/plasma values. (CLIA ID [id number]) Interpretation and review of laboratory results Abnormal [facility] POCT Glucoseon 12-16-2021 Test Performed by [facility], [address] [place], [place] [id number] [place] [address] LAB Glucose [Mass/Vol] 153 mg/dL High 70 - 100 mg/dL [facility] Work Phone: Comment on above: Test performed by gl ucose meter. Results may be 10%-15% lower than serum/plasma values. (CLIA ID [id number]) Interpretation and review of laboratory results Abnormal [facility] Work Phone: Test Performed by [facility], [address] [place], [place] [id number] [place] [address] LAB [facility] Work Phone: Test Performed by [facility], [address] LAB Glucose [Mass/Vol] 150 mg/dL High 70 - 100 mg/dL [facility] Work Phone: Comment on above: Test performed by gl ucose meter. Results may be 10%-15% lower than serum/plasma values. (CLIA ID [id number]) Interpretation and review of laboratory results Abnormal [facility] Work Phone: Test Performed by [facility], [address] [place], [place] [id number] [place] [address] LAB [facility] Work Phone: POCT GlucoseOrdered By: Asa Villegas on 12-16-2021 Glucose [Mass/Vol] 169 mg/dL High 70 - 100 mg/dL [facility] Work Phone: Comment on above: Test performed by gl ucose meter. Results may be 10%-15% lower than serum/plasma values. (CLIA ID [id number]) Interpretation and review of laboratory results Abnormal [facility] Work Phone: [facility] Work Phone: CBC with Auto Differentialon 12-15-2021 [...] - 10.7 10*3/uL [facility] Test Performed by [facility], [address] [facility] LAB [facility] CULTURE URINEon 12-15-2021 CULTURE URINE 1 Organism Escherichia coli >100,000 CFU/ml 1 Organism Antibiotic Result Intrp Ampicillin(CHRISTA) >= 32 R Cefazolin(CHRISTA) <= 4 S Ceftriaxone(CHRISTA) <= 1 S Cefepime(CHRISTA) <= 1 S Aztreonam(CHRISTA) <= 1 S Amoxicillin/Clavulan ic Acid(CHRISTA) 16 I Ampicillin/Sulbactam (CHRISTA) >= 32 R Pip/Tazobactam(CHRISTA) 8 S Meropenem(CHRISTA) <= 0.25 S Ciprofloxacin(CHRISTA) <= 0.25 S Trimeth/Sulfa(CHRISTA) <= 20 S Nitrofurantoin(CHRISTA) <= 16 S Gentamicin(CHRISTA) <= 1 S Amikacin(CHRISTA) <= 2 S Normal [facility] Comment on above: Performed By: #### B GLU #### [facility] [address] [place] [address] Comp Panel with Mg Reflexon 12-15-2021 ALP [Catalytic activity/Vol] 68 U/L Normal 38-126 [facility] Comment on above: Performed By: #### B GLU #### [facility] [address] [place] [address] ALT [Catalytic activity/Vol] 25 U/L Normal 0-34 [facility] Comment on above: Result Comment: The ALT test is performed by an updated assay method. Please note that the reference intervals have been changed and are now sex specific. Performed By: #### B GLU #### [facility] [address] [place] [address] Calcium [Mass/Vol] 8.7 mg/dL Normal 8.4-10.4 [facility] Comment on above: Performed By: #### B GLU #### [facility] [address] [place] [address] Glucose [Mass/Vol] 212 mg/dL High 70-100 [facility] Comment on above: Performed By: #### B GLU #### [facility] [address] [place] [address] Anion gap [Moles/Vol] 5 mmol/L Normal 3-13 [facility] Comment on above: Performed By: #### B GLU #### [facility] [address] [place] [address] AST [Catalytic activity/Vol] 49 U/L High 15-46 [facility] Comment on above: Performed By: #### B GLU #### [facility] [address] [place] [address] Bilirubin [Mass/Vol] 1.2 mg/dL Normal 0.2-1.3 [facility] Comment on above: Performed By: #### B GLU #### [facility] [address] [place] [address] CO2 [Moles/Vol] 24 mmol/L Normal 22-30 [facility] Comment on above: Performed By: #### B GLU #### [facility] [address] [place] [address] Creatinine [Mass/Vol] 1.20 mg/dL Normal 0.52-1.25 [facility] Comment on above: Performed By: #### B GLU #### [facility] [address] [place] [address] GFR/1.73 sq M.predicted among blacks MDRD (S/P/Bld) [Vol rate/Area] 50.7 mL/min/{1.73_m2} Abnormal >60 [facility] Comment on above: Performed By: #### B GLU #### [facility] [address] [place] [address] GFR/1.73 sq M.predicted among non-blacks MDRD (S/P/Bld) [Vol rate/Area] 43.7 mL/min/{1.73_m2} Abnormal >60 [facility] Comment on above: Result Comment: KDIG O [...] secretion. Performed By: #### B GLU #### [facility] [address] [place] [address] Protein [Mass/Vol] 5.9 g/dL Low 6.3-8.2 [facility] Comment on above: Performed By: #### B GLU #### [facility] [address] [place] [address] Urea nitrogen [Mass/Vol] 25 mg/dL High 9-20 [facility] Comment on above: Performed By: #### B GLU #### [facility] [address] [place] [address] Potassium [Moles/Vol] 3.2 mmol/L Low 3.5-5.1 [facility] Comment on above: Performed By: #### B GLU #### [facility] [address] [place] [address] Albumin [Mass/Vol] 2.9 g/dL Low 3.5-5.0 [facility] Comment on above: Performed By: #### B GLU #### [facility] [address] [place] [address] Chloride [Moles/Vol] 103 mmol/L Normal 98-107 [facility] Comment on above: Performed By: #### B GLU #### [facility] [address] [place] [address] Sodium [Moles/Vol] 133 mmol/L Low 135-145 [facility] Comment on above: Performed By: #### B GLU #### [facility] [address] [place] [address] Comprehensive Metabolic Pane l w/ Reflex to MGon 12-15-2021 Albumin [Mass/Vol] 2.9 g/dL Low 3.5 - 5.0 g/dL [facility] ALP (Bld) [Catalytic activity/Vol] 68 U/L 38 - 126 U/L [facility] ALT [Catalytic activity/Vol] 25 U/L 0 - [...] - 1.25 mg/dL [facility] EGFR IF NonAfrican Dominican 43.7 mL/min Abnormal >60 [facility] Comment on [...] - 20 mg/dL [facility] Test Performed by [facility], [address] [place], [place] [address] [facility] Culture, Urineon 12-15-2021 Bacteria identified Cx Nom (U) Escherichia coli Abnormal [facility] Bacteria identified Cx Nom (U) >100,000 CFU/ml [facility] Interpretation and review of laboratory results Abnormal [facility] Test Performed by [facility], [address] [place] [address] [facility] ECHO Complete 2D W Doppler W Coloron 12-15-2021 TRANSTHORACIC ECHOCARDIOGRAM PATIENT: Mikel Winston STUDY DATE: 12/15/2021 : 1945 AGE: 76 HT/WT: 165.1 cm (65 92.1 kg in) (202.6 lb) GENDER: F BP: 140 / 64 LOCATION: [facility] PATIENT Inpatient [facility] STATUS: *ORDERING PHYSICIAN: * Terence Gonzalez *READING PHYSICIAN: * Aquilino *GRINDING ROOM SUPERVISOR: * Florencia Workman RDCS, MD, [facility] AE, RVT, [place] INDICATIONS: CHF, Unspecified (I509). [...] ED 2.5 cm/m^2 (more content not included)... [facility] CARDIOLOGY Aquilino Don MD - 12/15/2021 TRANSTHORACIC ECHOCARDIOGRAM PATIENT: Mikel Winston STUDY DATE: 12/15/2021 : 1945 AGE: 76 HT/WT: 165.1 cm (65 92.1 kg in) (202.6 lb) GENDER: F BP: 140 / 64 LOCATION: [facility] PATIENT Inpatient [facility] STATUS: *ORDERING PHYSICIAN: * Terence Gonzalez *READING PHYSICIAN: * Aquilino *GRINDING ROOM SUPERVISOR: * Nova Melara RDCS, MD Florencia, [facility] AE, [place]T, [place] INDICATIONS: CHF, Unspecified (I509). [...] volume, 2-p 3 (more content not included)... Reissued Work Phone: ECHO Complete 2D W Doppler W ColorOrdered By: Aquilino Don on 12-15-2021 Reissued Work Phone: Echo Complete w/wo Contrasto n 12-15-2021 Echo Complete w/wo Contrast Patient Name: MIKEL WINSTON Ultrasound ACCESSION EXAM DATE/TIME PROCEDURE ORDERING PROVIDER [id number] 12/15/2021 13:24 EDT Echo Complete w/wo MD GONZALEZ PRAMOD Contrast Reason For Exam (Echo Complete w/wo Contrast) chf Report TRANSTHORACIC ECHOCARDIOGRAM PATIENT: Mikel Winston STUDY DATE: 12/15/2021 : 1945 AGE: 76 HT/WT: 165.1 cm (65 92.1 kg in) (202.6 lb) GENDER: F BP: 140 / 64 LOCATION: [facility] PATIENT Inpatient [facility] STATUS: *ORDERING PHYSICIAN: * Terence Gonzalez *READING PHYSICIAN: * Aquilino ColeGRINDING ROOM SUPERVISOR: * Florencia Workman RDCS, MD, [facility] AE, [place]T, [place] INDICATIONS: CHF, Unspecified (I509). [...] Stroke volume/bsa, (more content not included)... Normal [facility] Glucose,Bedsideon 12-15-2021 Glucose [Mass/Vol] 215 mg/dL High 70-100 [facility] Comment on above: Result Comment: Test performed by glucose meter. Results may be 10%-15% lower than serum/plasma values. (CLIA ID [id number]) Performed By: #### B NP3, CMP3, HEMDF #### [facility] [address] [place] [address] Glucose [Mass/Vol] 212 mg/dL High 70-100 [facility] Comment on above: Result Comment: Test performed by glucose meter. Results may be 10%-15% lower than serum/plasma values. (CLIA ID [id number]) Performed By: #### B NP3, CMP3, HEMDF #### [facility] [address] [place] [address] Glucose [Mass/Vol] 185 mg/dL [facility] [address] [place] [address] Comment on above: Result Comment: Test performed by glucose meter. Results may be 10%-15% lower than serum/plasma values. (CLIA ID [id number]) Performed By: #### B GLU #### [facility] [address] [place] [address] Glucose [Mass/Vol] 226 mg/dL High 70-100 [facility] Comment on above: Result Comment: Test performed by glucose meter. Results may be 10%-15% lower than serum/plasma values. (CLIA ID [id number]) Performed By: #### B NP3, CMP3, HEMDF #### [facility] [address] [place] [address] Hemogram w/ Autodiffon 12-15 Abs Baso Cnt 0.0 10*3/uL Normal 0.0-0.2 [facility] Comment on above: Performed By: #### B GLU #### [facility] [address] [place] [address] Abs Neutrophile Cnt 8.3 10*3/uL High 1.8-7.0 [facility] Comment on above: Performed By: #### B GLU #### [facility] [address] [place] [address] Basophils/100 WBC (Bld) 0.3 % Normal 0.0-2.0 [facility] Comment on above: Performed By: #### B GLU #### [facility] [address] [place] [address] Eosinophils (Bld) [#/Vol] 0.0 10*3/uL Normal 0.0-0.5 [facility] Comment on above: Performed By: #### B GLU #### [facility] [address] [place] [address] Eosinophils/100 WBC (Bld) 0.1 % Low 1.0-6.0 [facility] Comment on above: Performed By: #### B GLU #### [facility] [address] [place] [address] Erythrocyte distribution width (RBC) [Ratio] 13.7 % Normal 11.5-14.5 [facility] Comment on above: Performed By: #### B GLU #### [facility] [address] [place] [address] Granulocytes/100 WBC (Bld) 82.6 % High 40.0-80.0 [facility] Comment on above: Performed By: #### B GLU #### [facility] [address] [place] [address] Hematocrit (Bld) [Volume fraction] 32.0 % Low 35.0-47.0 [facility] Comment on above: Performed By: #### B GLU #### [facility] [address] [place] [address] Hemoglobin (Bld) [Mass/Vol] 10.8 g/dL Low 11.7-16.0 [facility] Comment on above: Performed By: #### B GLU #### [facility] [address] [place] [address] Lymphocytes (Bld) [#/Vol] 0.7 10*3/uL Low 1.0-4.3 [facility] Comment on above: Performed By: #### B GLU #### [facility] [address] [place] [address] Lymphocytes/100 WBC (Bld) 7.3 % Low 20.0-40.0 [facility] Comment on above: Performed By: #### B GLU #### [facility] [address] [place] [address] MCH (RBC) [Entitic mass] 32.6 pg Normal 26.0-34.0 [facility] Comment on above: Performed By: #### B GLU #### [facility] [address] [place] [address] MCHC 33.8 % Normal 32.0-36.0 [facility] Comment on above: Performed By: #### B GLU #### [facility] [address] [place] [address] MCV (RBC) [Entitic vol] 96.4 fL Normal 79.0-98.0 [facility] Comment on above: Performed By: #### B GLU #### [facility] [address] [place] [address] Monocytes (Bld) [#/Vol] 1.0 10*3/uL High 0.0-0.8 [facility] Comment on above: Performed By: #### B GLU #### [facility] [address] [place] [address] Monocytes/100 WBC (Bld) 9.7 % Normal 2.0-10.0 [facility] Comment on above: Performed By: #### B GLU #### [facility] [address] [place] [address] Platelet mean volume (Bld) [Entitic vol] 9.8 fL Normal 7.4-12.4 [facility] Comment on above: Result Comment: MPV is a calculated measurement using platelet volume ratio. Performed By: #### B GLU #### [facility] [address] [place] [address] Platelets (Bld) [#/Vol] 75 10*3/uL Low 140-440 [facility] Comment on above: Performed By: #### B GLU #### [facility] [address] [place] [address] RBC (Bld) [#/Vol] 3.32 10*6/uL Low 3.80-5.20 [facility] Comment on above: Performed By: #### B GLU #### [facility] [address] [place] [address] WBC (Bld) [#/Vol] 10.1 10*3/uL Normal 3.6-10.7 [facility] Comment on above: Performed By: #### B GLU #### [facility] [address] [place] [address] Magnesiumon 12-15-2021 Magnesium [Mass/Vol] 1.2 mg/dL Low 1.6-2.3 [facility] Comment on above: Performed By: #### B GLU #### [facility] [address] [place] [address] Interpretation and review of laboratory results Abnormal [facility] Magnesium [Mass/Vol] 1.2 mg/dL Low 1.6 - 2 .3 mg/dL [facility] Test Performed by [facility], [address] LAB [facility] POCT GlucoseOrdered By: Zofia Catherine on 12-15-2021 Glucose [Mass/Vol] 215 mg/dL High 70 - 100 mg/dL [facility] Work Phone: Comment on above: Test performed by gl ucose meter. Results may be 10%-15% lower than serum/plasma values. (CLIA ID [id number]) Interpretation and review of laboratory results Abnormal [facility] Work Phone: [facility] Work Phone: POCT Glucoseon 12-15-2021 Test Performed by [facility], [address] [place], [place] [id number] [place] [address] LAB Glucose [Mass/Vol] 212 mg/dL High 70 - 100 mg/dL [facility] Comment on above: Test performed by gl ucose meter. Results may be 10%-15% lower than serum/plasma values. (CLIA ID [id number]) Interpretation and review of laboratory results Abnormal [facility] Test Performed by [facility], [address] [place], [place] [id number] [place] [address] LAB [facility] Test Performed by [facility], [address] LAB Glucose [Mass/Vol] 226 mg/dL High 70 - 100 mg/dL [facility] Comment on above: Test performed by gl ucose meter. Results may be 10%-15% lower than serum/plasma values. (CLIA ID [id number]) Interpretation and review of laboratory results Abnormal [facility] Test Per[facility] by [facility], [address], [place], [place] [address] [facility] POCT GlucoseOrdered By: Cara Garcia on 12-15-2021 Glucose [Mass/Vol] 185 mg/dL High 70 - 100 mg/dL [facility] Work Phone: Comment on above: Test performed by gl ucose meter. Results may be 10%-15% lower than serum/plasma values. (CLIA ID [id number]) Interpretation and review of laboratory results Abnormal [facility] Work Phone: [facility] Work Phone: Procalcitoninon 12-15-2021 Procalcitonin 0.55 ng/mL High 0.00-0.09 [facility] [employer] Comment on above: Performed By: #### B GLU #### [employer] [address] [place] [address] Interpretation See Below [facility] Comment on above: PCT <0.50 = Low risk of severe sepsis and/or septic shock. PCT >2.00 = High risk of severe sepsis and/or septic shock. Interpretation and review of laboratory results Abnormal [facility] Procalcitonin 0.55 ng/mL High 0.00 - 0.09 ng/mL [facility] Test Performed by [facility], [address] [place] [id number] [place] [address] LAB [facility] Add On Lab Teston 12-14-2021 Add On Accepted [facility] Comment on above: Specimen available & acceptable for analysis. Add on test from HISon 12-14 Add on test from HIS Accepted Normal [facility] Comment on above: Result Comment: Spec imen available & acceptable for analysis. Performed By: #### B NP3, CMP3, HEMDF #### [employer] [address] [place] [address] Brain Natriuretic Peptideon 12-14-2021 Interpretation and review of laboratory results Abnormal [facility] Natriuretic peptide B (Bld) [Mass/Vol] [address] pg/mL High 0 - 450 pg/mL [facility] Test Performed by [facility], [address], [place], [place] [address] [facility] CBC with Auto Differentialon [...] - 10.7 10*3/uL [facility] Test Performed by [facility], [address] [place], [place] [id number] [place] [address] LAB [facility] Absolute Baso # 0.0 10*3/uL [...] 10.6 g/dL Low 11.7 - 16.0 g/dL [facility] Interpretation and review of laboratory results Abnormal [...] Radiology ACCESSION EXAM DATE/TIME PROCEDURE ORDERING PROVIDER [id number] 12/14/2021 18:24 EDT CR Chest Portable MD GONZALEZ PRAMOD CPT code 02786 Reason For Exam (CR Chest Portable) SOB [...] Transcribed Date and Time: 12/14/2021 7:10 Normal [facility] Comp Metabolic Panelon 12-14 ALP [Catalytic activity/Vol] 94 U/L Normal 38-126 [facility] Comment on above: Performed By: #### B GLU #### [facility] [address] [place] [address] ALT [Catalytic activity/Vol] 32 U/L Normal 0-34 [facility] Comment on above: Result Comment: The ALT test is performed by an updated assay method. Please note that the reference intervals have been changed and are now sex specific. Performed By: #### B GLU #### [facility] [address] [place] [address] AST [Catalytic activity/Vol] 63 U/L High 15-46 [facility] Comment on above: Performed By: #### B GLU #### [facility] [address] [place] [address] Bilirubin [Mass/Vol] 1.4 mg/dL High 0.2-1.3 [facility] Comment on above: Performed By: #### B GLU #### [facility] [address] [place] [address] Calcium [Mass/Vol] 9.2 mg/dL Normal 8.4-10.4 [facility] Comment on above: Performed By: #### B GLU #### [facility] [address] [place] [address] Glucose [Mass/Vol] 211 mg/dL High 70-100 [facility] Comment on above: Performed By: #### B GLU #### [facility] [address] [place] [address] Protein [Mass/Vol] 7.0 g/dL Normal 6.3-8.2 [facility] Comment on above: Performed By: #### B GLU #### [facility] [address] [place] [address] Urea nitrogen [Mass/Vol] 24 mg/dL High 9-20 [facility] Comment on above: Performed By: #### B GLU #### [facility] [address] [place] [address] Anion gap [Moles/Vol] 7 mmol/L Normal 3-13 [facility] Comment on above: Performed By: #### B GLU #### [facility] [address] [place] [address] CO2 [Moles/Vol] 21 mmol/L Low 22-30 [facility] Comment on above: Performed By: #### B GLU #### [facility] [address] [place] [address] Creatinine [Mass/Vol] 1.03 mg/dL Normal 0.52-1.25 [facility] Comment on above: Performed By: #### B GLU #### [facility] [address] [place] [address] GFR/1.73 sq M.predicted among blacks MDRD (S/P/Bld) [Vol rate/Area] 61.0 mL/min/{1.73_m2} Normal >60 [facility] Comment on above: Performed By: #### B GLU #### [facility] [address] [place] [address] GFR/1.73 sq M.predicted among non-blacks MDRD (S/P/Bld) [Vol rate/Area] 52.6 mL/min/{1.73_m2} Abnormal >60 [facility] Comment on above: Result Comment: KDIG O [...] secretion. Performed By: #### B GLU #### [facility] [address] [place] [address] Albumin [Mass/Vol] 3.5 g/dL Normal 3.5-5.0 [facility] Comment on above: Performed By: #### B GLU #### [facility] [address] [place] [address] Potassium [Moles/Vol] 3.8 mmol/L Normal 3.5-5.1 [facility] Comment on above: Performed By: #### B GLU #### [facility] [address] [place] [address] Sodium [Moles/Vol] 136 mmol/L Normal 135-145 [facility] Comment on above: Performed By: #### B GLU #### [facility] [address] [place] [address] Chloride [Moles/Vol] 108 mmol/L High 98-107 [facility] Comment on above: Performed By: #### B GLU #### [facility] [address] [place] [address] Comp Panel with Mg Reflexon 12-14-2021 ALP [Catalytic activity/Vol] 56 U/L Normal 38-126 [facility] Comment on above: Order Comment: SLIGH T HEMOLYSIS Performed By: #### B GLU #### [facility] [address] [place] [address] ALT [Catalytic activity/Vol] 26 U/L Normal 0-34 [facility] Comment on above: Order Comment: SLIGH T HEMOLYSIS Result Comment: The ALT test is performed by an updated assay method. Please note that the reference intervals have been changed and are now sex specific. Performed By: #### B GLU #### [facility] [address] [place] [address] Calcium [Mass/Vol] 9.3 mg/dL Normal 8.4-10.4 [facility] Comment on above: Order Comment: SLIGH T HEMOLYSIS Performed By: #### B GLU #### [facility] [address] [place] [address] Glucose [Mass/Vol] 157 mg/dL High 70-100 [facility] Comment on above: Order Comment: SLIGH T HEMOLYSIS Performed By: #### B GLU #### [facility] [address] [place] [address] Urea nitrogen [Mass/Vol] 29 mg/dL High 9-20 [facility] Comment on above: Order Comment: SLIGH T HEMOLYSIS Performed By: #### B GLU #### [facility] [address] [place] [address] Anion gap [Moles/Vol] 7 mmol/L Normal 3-13 [facility] Comment on above: Order Comment: SLIGH T HEMOLYSIS Performed By: #### B GLU #### [facility] [address] [place] [address] AST [Catalytic activity/Vol] 53 U/L High 15-46 [facility] Comment on above: Order Comment: SLIGH T HEMOLYSIS Performed By: #### B GLU #### [facility] [address] [place] [address] Bilirubin [Mass/Vol] 1.9 mg/dL High 0.2-1.3 [facility] Comment on above: Order Comment: SLIGH T HEMOLYSIS Performed By: #### B GLU #### [facility] [address] [place] [address] CO2 [Moles/Vol] 21 mmol/L Low 22-30 [facility] Comment on above: Order Comment: SLIGH T HEMOLYSIS Performed By: #### B GLU #### [facility] [address] [place] [place] [address] Creatinine [Mass/Vol] 0.97 mg/dL Normal 0.52-1.25 [facility] Comment on above: Order Comment: SLIGH T HEMOLYSIS Performed By: #### B GLU #### [facility] [address] [place] [address] GFR/1.73 sq M.predicted among blacks MDRD (S/P/Bld) [Vol rate/Area] 65.6 mL/min/{1.73_m2} Normal >60 [facility] Comment on above: Order Comment: SLIGH T HEMOLYSIS Performed By: #### B GLU #### [facility] [address] [place] [address] GFR/1.73 sq M.predicted among non-blacks MDRD (S/P/Bld) [Vol rate/Area] 56.6 mL/min/{1.73_m2} Abnormal >60 [facility] Comment on above: Order Comment: SLIGH T [...] secretion. Performed By: #### B GLU #### [facility] [address] [place] [address] Protein [Mass/Vol] 6.2 g/dL Low 6.3-8.2 [facility] Comment on above: Order Comment: SLIGH T HEMOLYSIS Performed By: #### B GLU #### [facility] [address] [place] [address] Potassium [Moles/Vol] 3.6 mmol/L Normal 3.5-5.1 [facility] Comment on above: Order Comment: SLIGH T HEMOLYSIS Performed By: #### B GLU #### [facility] [address] [place] [address] Sodium [Moles/Vol] 139 mmol/L Normal 135-145 [facility] Comment on above: Order Comment: SLIGH T HEMOLYSIS Performed By: #### B GLU #### [facility] [address] [place] [address] Albumin [Mass/Vol] 3.2 g/dL Low 3.5-5.0 [facility] Comment on above: Order Comment: SLIGH T HEMOLYSIS Performed By: #### B GLU #### [facility] [address] [place] [address] Chloride [Moles/Vol] 111 mmol/L High 98-107 [facility] Comment on above: Order Comment: SLIGH T HEMOLYSIS Performed By: #### B GLU #### [facility] [address] [place] [address] Comprehensive Metabolic Pane smith 12-14-2021 Albumin [Mass/Vol] 3.5 g/dL 3.5 - 5.0 g/dL [facility] ALP (Bld) [Catalytic activity/Vol] 94 U/L 38 - 126 U/L [facility] ALT [Catalytic activity/Vol] 32 U/L 0 - 34 U/L [facility] Comment on above: The ALT test is [...] - 1.25 mg/dL [facility] EGFR IF NonAfrican Dominican 52.6 mL/min Abnormal >60 [facility] Comment on above: KDIGO guidelines pro [...] - 1.25 mg/dL [facility] EGFR IF NonAfrican Dominican 56.6 mL/min Abnormal >60 [facility] Comment on [...] 157 mg/dL High 70 - 100 mg/dL [facility] Interpretation and review of laboratory results Abnormal [facility] Potassium [Moles/Vol] 3.6 mmol/L 3.5 - 5.1 mmol/L [facility] Sodium [Moles/Vol] 139 mmol/L 135 - 145 mmol/L [facility] Urea nitrogen (BldV) [Mass/Vol] 29 mg/dL High 9 - 20 mg/dL [facility] Test Performed by [facility], [address] [place], [place] [address] SLIGHT HEMOLYSIS [facility] Glucose,Bedsideon 12-14-2021 Glucose [Mass/Vol] 163 mg/dL High 70-100 [facility] Comment on above: Result Comment: Test performed by glucose meter. Results may be 10%-15% lower than serum/plasma values. (CLIA ID [id number]) Performed By: #### B GLU #### [facility] [address] [place] [address] Glucose [Mass/Vol] 214 mg/dL High 70-100 [facility] Comment on above: Result Comment: Test performed by glucose meter. Results may be 10%-15% lower than serum/plasma values. (CLIA ID [id number]) Performed By: #### B NP3, CMP3, HEMDF #### [facility] [address] [place] [address] Glucose [Mass/Vol] 146 mg/dL High 70-100 [facility] Comment on above: Result Comment: Test performed by glucose meter. Results may be 10%-15% lower than serum/plasma values. (CLIA ID [id number]) Performed By: #### B GLU #### [facility] [address] [place] [address] Hemogram w/ Autodiffon 12-14 Abs Baso Cnt 0.0 10*3/uL Normal 0.0-0.2 [facility] Comment on above: Performed By: #### B GLU #### [facility] [address] [place] [address] Abs Neutrophile Cnt 7.7 10*3/uL High 1.8-7.0 [facility] Comment on above: Performed By: #### B GLU #### [facility] [address] [place] [address] Basophils/100 WBC (Bld) 0.5 % Normal 0.0-2.0 [facility] Comment on above: Performed By: #### B GLU #### [facility] [address] [place] [address] Eosinophils (Bld) [#/Vol] 0.1 10*3/uL Normal 0.0-0.5 [facility] Comment on above: Performed By: #### B GLU #### [facility] [address] [place] [address] Eosinophils/100 WBC (Bld) 1.3 % Normal 1.0-6.0 [facility] Comment on above: Performed By: #### B GLU #### [facility] [address] [place] [address] Erythrocyte distribution width (RBC) [Ratio] 13.8 % Normal 11.5-14.5 [facility] Comment on above: Performed By: #### B GLU #### [facility] [address] [place] [address] Granulocytes/100 WBC (Bld) 79.5 % Normal 40.0-80.0 [facility] Comment on above: Performed By: #### B GLU #### [facility] [address] [place] [address] Hematocrit (Bld) [Volume fraction] 37.2 % Normal 35.0-47.0 [facility] Comment on above: Performed By: #### B GLU #### [facility] [address] [place] [address] Hemoglobin (Bld) [Mass/Vol] 12.5 g/dL Normal 11.7-16.0 [facility] Comment on above: Performed By: #### B GLU #### [facility] [address] [place] [address] Lymphocytes (Bld) [#/Vol] 0.7 10*3/uL Low 1.0-4.3 [facility] Comment on above: Performed By: #### B GLU #### [facility] [address] [place] [address] Lymphocytes/100 WBC (Bld) 7.5 % Low 20.0-40.0 [facility] Comment on above: Performed By: #### B GLU #### [facility] [address] [place] [address] MCH (RBC) [Entitic mass] 33.3 pg Normal 26.0-34.0 [facility] Comment on above: Performed By: #### B GLU #### [facility] [address] [place] [address] MCHC 33.7 % Normal 32.0-36.0 [facility] Comment on above: Performed By: #### B GLU #### [facility] [address] [place] [address] MCV (RBC) [Entitic vol] 98.9 fL High 79.0-98.0 [facility] Comment on above: Performed By: #### B GLU #### [facility] [address] [place] [address] Monocytes (Bld) [#/Vol] 1.1 10*3/uL High 0.0-0.8 [facility] Comment on above: Performed By: #### B GLU #### [facility] [address] [place] [address] Monocytes/100 WBC (Bld) 11.2 % High 2.0-10.0 [facility] Comment on above: Performed By: #### B GLU #### [facility] [address] [place] [address] Platelet mean volume (Bld) [Entitic vol] 10.5 fL Normal 7.4-12.4 [facility] Comment on above: Result Comment: MPV is a calculated measurement using platelet volume ratio. Performed By: #### B GLU #### [facility] [address] [place] [address] Platelets (Bld) [#/Vol] 85 10*3/uL Low 140-440 [facility] Comment on above: Performed By: #### B GLU #### [place] [address] [place] [address] RBC (Bld) [#/Vol] 3.76 10*6/uL Low 3.80-5.20 [facility] Comment on above: Performed By: #### B GLU #### [facility] [address] [place] [address] WBC (Bld) [#/Vol] 9.7 10*3/uL Normal 3.6-10.7 [facility] Comment on above: Performed By: #### B GLU #### [facility] [address] [place] [address] Platelets (Bld) [#/Vol] 95 10*3/uL Low 140-440 [facility] Comment on above: Result Comment: Occa sional fibrin strands noted on smear, no clot detected in tube, may affect plate count, suggest repeat draw. Performed By: #### B GLU #### [facility] [address] [place] [address] Abs Baso Cnt 0.0 10*3/uL Normal 0.0-0.2 [facility] Comment on above: Performed By: #### B GLU #### [facility] [address] [place] [address] Abs Neutrophile Cnt 7.8 10*3/uL High 1.8-7.0 [facility] Comment on above: Performed By: #### B GLU #### [facility] [address] [place] [address] Basophils/100 WBC (Bld) 0.4 % Normal 0.0-2.0 [facility] Comment on above: Performed By: #### B GLU #### [facility] [address] [place] [address] Eosinophils (Bld) [#/Vol] 0.0 10*3/uL Normal 0.0-0.5 [facility] Comment on above: Performed By: #### B GLU #### [facility] [address] [place] [address] Eosinophils/100 WBC (Bld) 0.5 % Low 1.0-6.0 [facility] Comment on above: Performed By: #### B GLU #### [facility] [address] [place] [address] Erythrocyte distribution width (RBC) [Ratio] 14.0 % Normal 11.5-14.5 [facility] Comment on above: Performed By: #### B GLU #### [facility] [address] [place] [address] Granulocytes/100 WBC (Bld) 82.9 % High 40.0-80.0 [facility] Comment on above: Performed By: #### B GLU #### [facility] [address] [place] [address] Hematocrit (Bld) [Volume fraction] 30.4 % Low 35.0-47.0 [facility] Comment on above: Performed By: #### B GLU #### [facility] [address] [place] [address] Hemoglobin (Bld) [Mass/Vol] 10.6 g/dL Low 11.7-16.0 [facility] Comment on above: Performed By: #### B GLU #### [facility] [address] [place] [address] Lymphocytes (Bld) [#/Vol] 0.7 10*3/uL Low 1.0-4.3 [facility] Comment on above: Performed By: #### B GLU #### [facility] [address] [place] [address] Lymphocytes/100 WBC (Bld) 7.5 % Low 20.0-40.0 [facility] Comment on above: Performed By: #### B GLU #### [facility] [address] [place] [address] MCH (RBC) [Entitic mass] 34.0 pg Normal 26.0-34.0 [facility] Comment on above: Performed By: #### B GLU #### [facility] [address] [place] [address] MCHC 34.8 % Normal 32.0-36.0 [facility] Comment on above: Performed By: #### B GLU #### [facility] [address] [place] [address] MCV (RBC) [Entitic vol] 97.9 fL Normal 79.0-98.0 [facility] Comment on above: Performed By: #### B GLU #### [facility] [address] [place] [address] Monocytes (Bld) [#/Vol] 0.8 10*3/uL Normal 0.0-0.8 [facility] Comment on above: Performed By: #### B GLU #### [facility] [address] [place] [address] Monocytes/100 WBC (Bld) 8.7 % Normal 2.0-10.0 [facility] Comment on above: Performed By: #### B GLU #### [facility] [address] [place] [address] Platelet mean volume (Bld) [Entitic vol] 10.5 fL Normal 7.4-12.4 [facility] Comment on above: Result Comment: MPV is a calculated measurement using platelet volume ratio. Performed By: #### B GLU #### [facility] [address] [place] [address] RBC (Bld) [#/Vol] 3.11 10*6/uL Low 3.80-5.20 [facility] Comment on above: Performed By: #### B GLU #### [facility] [address] [place] [address] WBC (Bld) [#/Vol] 9.4 10*3/uL Normal 3.6-10.7 [facility] Comment on above: Performed By: #### B GLU #### [facility] [address] [place] [address] Lactic Acidon 12-14-2021 Lactate [Moles/Vol] 1.6 mmol/L Normal 0.7-2.0 [facility] Comment on above: Performed By: #### B GLU #### [facility] [address] [place] [address] Lactate [Moles/Vol] 1.6 mmol/L 0.7 - 2. 0 mmol/L [facility] Lactic Acid, Sepsison 2021 Lactate [Moles/Vol] 1.7 mmol/L Normal 0.7-2.0 [facility] Comment on above: Performed By: #### B GLU #### [facility] [address] [place] [address] NT pro BNPon 12-14-2021 Natriuretic peptide B (Bld) [Mass/Vol] [address] pg/mL High 0-450 [facility] Comment on above: Performed By: #### B GLU #### [facility] [address] [place] [address] No Panel Informationon 12-14 Test Performed by [facility], [address] [place], [place] [address] [place] [address] LAB [facility] Test Performed by [facility], [address] LAB [facility] POCT Glucoseon 12-14-2021 Glucose [Mass/Vol] 163 mg/dL High 70 - 100 mg/dL [facility] Comment on above: Test performed by gl ucose meter. Results may be 10%-15% lower than serum/plasma values. (CLIA ID [id number]) Interpretation and review of laboratory results Abnormal [facility] Test Performed by [facility], [address] [place], [place] [id number] [place] [address] LAB [facility] Glucose [Mass/Vol] 214 mg/dL High 70 - 100 mg/dL [facility] Comment on above: Test performed by gl ucose meter. Results may be 10%-15% lower than serum/plasma values. (CLIA ID [id number]) Interpretation and review of laboratory results Abnormal [facility] Test Performed by [facility], [address] [place], [place] [id number] [place] [address] LAB [facility] Test Performed by [facility], [address] [place], [place] [address] [facility] POCT GlucoseOrdered By: Robe Villegas on 12-14-2021 Glucose [Mass/Vol] 146 mg/dL High 70 - 100 mg/dL [facility] Work Phone: Comment on above: Test performed by gl ucose meter. Results may be 10%-15% lower than serum/plasma values. (CLIA ID [id number]) Interpretation and review of laboratory results Abnormal [facility] Work Phone: [facility] Work Phone: Procalcitoninon 12-14-2021 Interpretation See Below Normal [facility] Comment on above: Result Comment: PCT <0.50 = Low risk of severe sepsis and/or septic shock. PCT >2.00 = High risk of severe sepsis and/or septic shock. Performed By: #### B GLU #### [facility] [address] [place] [address] RBC MORPHOLOGYon 12-14-2021 RBC (Bld) [#/Vol] Normal [facility] RBC Morphologyon 12-14-2021 RBC morphology finding Nom (Bld) Normal Normal [facility] Comment on above: Performed By: #### B GLU #### [facility] [address] [place] [address] VL LOWER EXTREMITY BILATERAL VENOUS DUPLEXon 12-14-2021 [facility] Lower Extremity Venous Duplex Report Patient Ravindra : 1945 Study 12/14/2021 Name: Mikel Davis (76yrs) Date: Age: 76 Account: [id number] Gender: F Loc: 260 BP: Ordering Physician: Terence Gonzalez Zoology Professor: Adrienne Williamson RDMS, RVT Interpreting Physician: Clinton Dove MD Location: [facility] Indications: Edema of the bilateral legs. Conclusions [...] supine position. Images were obtained using a Duable Chineses vascular ultrasound machine. The study was technically [...] + + ------+-------+--- (more content not included)... [facility] CARDIOLOGY Clinton Dove MD - 12/14/2021 [facility] Lower Extremity Venous Duplex Report Patient DO RavindraB: 1945 Study 12/14/2021 Name: Mikel Davis (76yrs) Date: Age: 76 Account: [id number] Gender: F Loc: 260 BP: Ordering Physician: Terence Gonzalez Zoology Professor: Adrienne Williamson RDMS, RVT Interpreting Physician: Clinton Dove MD Location: [facility] Indications: Edema of the bilateral legs. Conclusions [...] supine position. Images were obtained using a Duable Chineses vascular ultrasound machine. The study was technically [...] +L soleal +Trent (more content not included)... [employer] Work Phone: VL LOWER EXTREMITY BILATERAL VENOUS DUPLEXOrdered By: Clinton Dove on 12-14-2021 [employer] Phone: VL Venous Duplex US Lower Ex t Bilateralon 12-14-2021 VL Venous Duplex US Lower Ext Bilateral Patient Name: MIKEL WINSTON Ultrasound ACCESSION EXAM DATE/TIME PROCEDURE ORDERING PROVIDER [id number] 12/14/2021 09:44 EDT VL Venous Duplex US MD GONZALEZ PRAMOD Lower Ext Bilateral CPT code 11587 Reason For Exam (VL Venous Duplex US Lower Ext Bilateral) LE edema Report [facility] Lower Extremity Venous Duplex Report Patient Ravindra : 1945 Study 12/14/2021 Name: Mikel Davis (76yrs) Date: Age: 76 Account: [id number] Gender: F Loc: 260 BP: Ordering Physician: Terence Gonzalez Zoology Professor: Adrienne Williamson RDMS, RVT Interpreting Physician: Clinton oDve MD Location: [facility] Indications: Edema of the bilateral legs. Conclusions [...] supine position. Images were obtained using a Duable Chineses vascular ultrasound machine. Ultrasound Report The study [...] Radiology ACCESSION EXAM DATE/TIME PROCEDURE ORDERING PROVIDER [id number] 12/14/2021 18:24 EDT CR Chest Portable MD GONZALEZ PRAMOD CPT code 68780 Reason For Exam (CR Chest Portable) SOB [...] R Transcribed Date and Time: 12/14/2021 7:10 [facility] Clinton Serna MD - 12/14/2021 Patient Name: MIKEL WINSTON Diagnostic Radiology ACCESSION EXAM DATE/TIME PROCEDURE ORDERING PROVIDER [id number] 12/14/2021 18:24 EDT CR Chest Portable MD GONZALEZ PRAMOD CPT code 83694 Reason For Exam (CR Chest Portable) SOB [...] R Transcribed Date and Time: 12/14/2021 7:10 [facility] Work Phone: Radiology Study observation (narrative) [facility] Work Phone: XR CHEST PORTABLEOrdered By: Clinton Serna on 12-14-2021 [facility] Work Phone: Add On Lab Teston 12-13-2021 Add On Accepted [facility] Comment on above: Specimen available & acceptable for analysis. Test Performed by [facility], [address] [place] [address] [facility] Add on test from HISon 12-13 Add on test from HIS Accepted Normal [facility] Comment on above: Result Comment: Spec imen available & acceptable for analysis. Performed By: #### A DDON #### [facility] [address] [place] [address] Basic Metabolic Panelon Calcium [Mass/Vol] 10.3 mg/dL Normal 8.4-10.4 [facility] Comment on above: Performed By: #### B NP3, CMP3, HEMDF #### [facility] [address] [place] [address] Glucose [Mass/Vol] 181 mg/dL High 70-100 [facility] Comment on above: Performed By: #### B NP3, CMP3, HEMDF #### [facility] [address] [place] [address] Urea nitrogen [Mass/Vol] 34 mg/dL High 9-20 [facility] Comment on above: Performed By: #### B NP3, CMP3, HEMDF #### [facility] [address] [place] [address] Anion gap [Moles/Vol] 9 mmol/L Normal 3-13 [facility] Comment on above: Performed By: #### B NP3, CMP3, HEMDF #### [facility] [address] [place] [address] CO2 [Moles/Vol] 23 mmol/L Normal 22-30 [facility] Comment on above: Performed By: #### B NP3, CMP3, HEMDF #### [facility] [address] [place] [address] Creatinine [Mass/Vol] 1.22 mg/dL Normal 0.52-1.25 [facility] Comment on above: Performed By: #### B NP3, CMP3, HEMDF #### [facility] [address] [place] [address] GFR/1.73 sq M.predicted among blacks MDRD (S/P/Bld) [Vol rate/Area] 49.7 mL/min/{1.73_m2} Abnormal >60 [facility] Comment on above: Performed By: #### B NP3, CMP3, HEMDF #### [facility] [address] [place] [address] GFR/1.73 sq M.predicted among non-blacks MDRD (S/P/Bld) [Vol rate/Area] 42.9 mL/min/{1.73_m2} Abnormal >60 [facility] Comment on above: Result Comment: KDIG O [...] By: #### B NP3, CMP3, HEMDF #### [facility] [address] [place] [address] Potassium [Moles/Vol] 3.7 mmol/L Normal 3.5-5.1 [facility] Comment on above: Performed By: #### B NP3, CMP3, HEMDF #### [facility] [address] [place] [address] Chloride [Moles/Vol] 110 mmol/L High 98-107 [facility] Comment on above: Performed By: #### B NP3, CMP3, HEMDF #### [facility] [address] [place] [address] Sodium [Moles/Vol] 141 mmol/L Normal 135-145 [facility] Comment on above: Performed By: #### B NP3, CMP3, HEMDF #### [facility] [address] [place] [address] Anion gap [Moles/Vol] 9 mmol/L 3 - 13 mmol/L [facility] Calcium [Mass/Vol] 10.3 mg/dL 8.4 - 10. 4 mg/dL [facility] Chloride [Moles/Vol] 110 mmol/L High 98 - 10 7 mmol/L [facility] CO2 [Moles/Vol] 23 mmol/L 22 - 30 mmol/L [facility] Creatinine [Mass/Vol] 1.22 mg/dL 0.52 - 1.25 mg/dL [facility] EGFR IF NonAfrican Dominican 42.9 mL/min Abnormal >60 [facility] Comment on [...] - 20 mg/dL [facility] Test Performed by [facility], [address], [place], [place] [address] [facility] CBC with Auto Differentialon [...] 15.1 10*3/uL High 3.6 - 10.7 10*3/uL [facility] Test Performed by [facility] [facility], [address] [place], [place] [id number] [place] [address] LAB [facility] CT Head WO Contraston 2021 Patient Name: MIKEL WINSTON Computed Tomography ACCESSION EXAM DATE/TIME PROCEDURE ORDERING PROVIDER [id number] 12/13/2021 12:[address] Head or Brain w/o [id number] -ALVARO, Linda Contrast CPT code 42850 Reason For Exam (CT Head or Brain [...] Transcribed Date and Time: 12/13/2021 12:53 [facility] Shemar Teresa MD - 12/13/2021 Patient Name: MIKEL WINSTON Computed Tomography ACCESSION EXAM DATE/TIME PROCEDURE ORDERING PROVIDER [id number] 12/13/2021 12:[address] Head or Brain w/o [id number] -MORAH, J Contrast CPT code 67102 Reason For Exam (CT Head or Brain [...] Tomography ACCESSION EXAM DATE/TIME PROCEDURE ORDERING PROVIDER [id number] 12/13/2021 12:[address] Head or Brain w/o [id number] -MORAH, J Contrast CPT code 04849 Reason For Exam (CT Head or Brain [...] Transcribed Date and Time: 12/13/2021 12:53 Normal [facility] Complete Urinalysison 2021 Appearance (U) Clear Normal Clear [facility] Comment on above: Result Comment: . Performed By: #### B GLU #### [facility] [address] [place] [address] Bacteria Moderate Abnormal Negative [facility] Comment on above: Result Comment: . Performed By: #### B GLU #### [facility] [address] [place] [address] Bilirubin,Urine Negative Normal Negative [facility] Comment on above: Result Comment: . Performed By: #### B GLU #### [facility] [address] [place] [address] Color (U) Yellow Normal Lt. Yellow [facility] Comment on above: Result Comment: . Performed By: #### B GLU #### [facility] [address] [place] [address] Glucose Ql (U) Normal Normal Normal (<70) [facility] Comment on above: Result Comment: . Performed By: #### B GLU #### [facility] [address] [place] [address] Ketone,Urine Negative Normal Negative [facility] Comment on above: Result Comment: . Performed By: #### B GLU #### [facility] [address] [place] [address] Leukocytes,Urine Negative Normal Negative [facility] Comment on above: Result Comment: . Performed By: #### B GLU #### [facility] [address] [place] [address] Mucous Threads Few Normal Negative [facility] Comment on above: Result Comment: . Performed By: #### B GLU #### [facility] [address] [place] [address] Nitrites,Urine Negative Normal Negative [facility] Comment on above: Result Comment: . Performed By: #### B GLU #### [facility] [address] [place] [address] Occult Blood,Urine Negative Normal Negative [facility] Comment on above: Result Comment: . Performed By: #### B GLU #### [facility] [address] [place] [address] pH,Urine 5.0 Normal 5.0-8.0 [facility] Comment on above: Result Comment: . Performed By: #### B GLU #### [facility] [address] [place] [address] Protein (U) [Mass/Vol] 10 mg/dL Abnormal Negative [facility] Comment on above: Result Comment: . Performed By: #### B GLU #### [facility] [address] [place] [address] RBC, Urine 0 - 2 Normal 0-2 [facility] Comment on above: Result Comment: . Performed By: #### B GLU #### [facility] [address] [place] [address] Specific [place],Urine 1.023 Normal 1.005 - 1.030 [facility] Comment on above: Result Comment: . Performed By: #### B GLU #### [facility] [address] [place] [address] Squamous Epithelial 0 - 2 Normal 3-5 [facility] Comment on above: Result Comment: . Performed By: #### B GLU #### [facility] [address] [place] [address] Uric Acid Crystals Few Abnormal Negative [facility] Comment on above: Result Comment: . Performed By: #### B GLU #### [facility] [address] [place] [address] Urobilinogen,Urine Normal Normal Normal (0-1) [facility] Comment on above: Result Comment: . Performed By: #### B GLU #### [facility] [address] [place] [address] WBC, Urine 0 - 2 Normal 0-5 [facility] Comment on above: Result Comment: . Performed By: #### B GLU #### [facility] [address] [place] [address] ED Provider Noteon ED Provider Note IFEOMA SPENCER ED EMERGENCY DEPARTMENT ENCOUNTER Pt Name: Mikel [...] and Family: Not on file ? Attends [employer]: Not on file ? Active Member [...] (!) 146/6 (more content not included)... Normal [facility] Glucose,Bedsideon 12-13-2021 Glucose [Mass/Vol] 217 mg/dL High 70-100 [facility] Comment on above: Result Comment: Test performed by glucose meter. Results may be 10%-15% lower than serum/plasma values. (CLIA ID [id number]) Performed By: #### B GLU #### [employer] [facility] [address] [place] [address] Glucose [Mass/Vol] 176 mg/dL High 70-100 [facility] Comment on above: Result Comment: Test performed by glucose meter. Results may be 10%-15% lower than serum/plasma values. (CLIA ID [id number]) Performed By: #### B GLU #### [facility] [address] [place] [address] Hemogram w/ Autodiffon 12-13 Abs Baso Cnt 0.1 10*3/uL Normal 0.0-0.2 [facility] Comment on above: Performed By: #### B NP3, CMP3, HEMDF #### [facility] [address] [place] [address] Abs Neutrophile Cnt 13.0 10*3/uL High 1.8-7.0 [facility] Comment on above: Performed By: #### B NP3, CMP3, HEMDF #### [facility] [address] [place] [address] Basophils/100 WBC (Bld) 0.5 % Normal 0.0-2.0 [facility] Comment on above: Performed By: #### B NP3, CMP3, HEMDF #### [facility] [address] [place] [address] Eosinophils (Bld) [#/Vol] 0.0 10*3/uL Normal 0.0-0.5 [facility] Comment on above: Performed By: #### B NP3, CMP3, HEMDF #### [facility] [address] [place] [address] Eosinophils/100 WBC (Bld) 0.0 % Low 1.0-6.0 [facility] Comment on above: Performed By: #### B NP3, CMP3, HEMDF #### [facility] [address] [place] [address] Erythrocyte distribution width (RBC) [Ratio] 13.4 % Normal 11.5-14.5 [facility] Comment on above: Performed By: #### B NP3, CMP3, HEMDF #### [facility] [address] [place] [address] Granulocytes/100 WBC (Bld) 85.9 % High 40.0-80.0 [facility] Comment on above: Performed By: #### B NP3, CMP3, HEMDF #### [facility] [address] [place] [address] Hematocrit (Bld) [Volume fraction] 34.3 % Low 35.0-47.0 [facility] Comment on above: Performed By: #### B NP3, CMP3, HEMDF #### [facility] [address] [place] [address] Hemoglobin (Bld) [Mass/Vol] 11.7 g/dL Normal 11.7-16.0 [facility] Comment on above: Performed By: #### B NP3, CMP3, HEMDF #### [facility] [address] [place] [address] Lymphocytes (Bld) [#/Vol] 0.7 10*3/uL Low 1.0-4.3 [facility] Comment on above: Performed By: #### B NP3, CMP3, HEMDF #### [facility] [address] [place] [address] Lymphocytes/100 WBC (Bld) 4.3 % Low 20.0-40.0 [facility] Comment on above: Performed By: #### B NP3, CMP3, HEMDF #### [facility] [address] [place] [address] MCH (RBC) [Entitic mass] 32.9 pg Normal 26.0-34.0 [facility] Comment on above: Performed By: #### B NP3, CMP3, HEMDF #### [facility] [address] [place] [address] MCHC 34.1 % Normal 32.0-36.0 [facility] Comment on above: Performed By: #### B NP3, CMP3, HEMDF #### [facility] [address] [place] [address] MCV (RBC) [Entitic vol] 96.6 fL Normal 79.0-98.0 [facility] Comment on above: Performed By: #### B NP3, CMP3, HEMDF #### [facility] [address] [place] [address] Monocytes (Bld) [#/Vol] 1.4 10*3/uL High 0.0-0.8 [facility] Comment on above: Performed By: #### B NP3, CMP3, HEMDF #### [facility] [address] [place] [address] Monocytes/100 WBC (Bld) 9.3 % Normal 2.0-10.0 [facility] Comment on above: Performed By: #### B NP3, CMP3, HEMDF #### [facility] [address] [place] [address] Platelet mean volume (Bld) [Entitic vol] 10.3 fL Normal 7.4-12.4 [facility] Comment on above: Result Comment: MPV is a calculated measurement using platelet volume ratio. Performed By: #### B NP3, CMP3, HEMDF #### [facility] [address] [place] [address] Platelets (Bld) [#/Vol] 101 10*3/uL Low 140-440 [facility] Comment on above: Performed By: #### B NP3, CMP3, HEMDF #### [facility] [address] [place] [address] RBC (Bld) [#/Vol] 3.55 10*6/uL Low 3.80-5.20 [facility] Comment on above: Performed By: #### B NP3, CMP3, HEMDF #### [facility] [address] [place] [address] WBC (Bld) [#/Vol] 15.1 10*3/uL High 3.6-10.7 [facility] Comment on above: Performed By: #### B NP3, CMP3, HEMDF #### [facility] [address] [place] [place] [address] Lactate, Sepsison 12-13-2021 Lactate [Moles/Vol] 1.7 mmol/L 0.7 - 2. 0 mmol/L [facility] Test Performed by [facility], [facility] [address] [place], [place] [id number] [place] [address] LAB [facility] Interpretation and review of laboratory results Abnormal [facility] Lactate [Moles/Vol] 2.1 mmol/L Critically high 0.7 - 2.0 mmol/L [facility] Test Performed by [facility], [facility] [address] [place], [place] [id number] [place] [address] LAB [facility] Lactic Acidon 12-13-2021 Lactate [Moles/Vol] 2.1 mmol/L Critically high 0.7-2.0 [facility] Comment on above: Performed By: #### B GLU #### [facility] [address] [place] [address] Interpretation and review of laboratory results Abnormal [facility] Lactate [Moles/Vol] 2.1 mmol/L Critically high 0.7 - 2.0 mmol/L [facility] Test Performed by [facility], [address] LAB [facility] Lactic Acid, Sepsison 2021 Lactate [Moles/Vol] 2.1 mmol/L Critically high 0.7-2.0 [facility] Comment on above: Performed By: #### B GLU #### [facility] [address] [place] [address] POCT GlucoseOrdered By: Anthony Sagastume on 12-13-2021 Glucose [Mass/Vol] 217 mg/dL High 70 - 100 mg/dL [facility] Comment on above: Test performed by gl ucose meter. Results may be 10%-15% lower than serum/plasma values. (CLIA ID [id number]) Interpretation and review of laboratory results Abnormal [facility] POCT Glucoseon 12-13-2021 Test Performed by [facility], [address] LAB Test Performed by [facility], [address] LAB POCT GlucoseOrdered By: Gerard Winston on 12-13-2021 Glucose [Mass/Vol] 176 mg/dL High 70 - 100 mg/dL [facility] Work Phone: Comment on above: Test performed by gl ucose meter. Results may be 10%-15% lower than serum/plasma values. (CLIA ID [id number]) Interpretation and review of laboratory results Abnormal [facility] Work Phone: [facility] Work Phone: Urinalysison 12-13-2021 Appearance (U) [...] /[HPF] [facility] Comment on above: . Specific [place], Urine 1.023 S [facility] Comment on above: . Squam Epithel, UA 0-2 3 - 5 /[HPF] [facility] Comment on above: . Uric Acid Valerie, UA Few Abnormal Negative /[HPF] [facility] Comment on above: . Urobilinogen, Urine Normal Normal (0-1) mg/dL [facility] Comment on above: . WBC, UA 0-2 0 - 5 /[HPF] [facility] Comment on above: . Test Performed by [facility], [address] [place], [place] [id number] [place] [address] LAB [facility] LOWER EXTREMITY BILATERAL VENOUS DUPLEXon 12-13-2021 Radiology Study observation (narrative) [facility] Work Phone: Laboratory - Chemistry and C hemistry - challengeon 11-26-2020 Average glucose Estimated from glycated hemoglobin (Bld) [Mass/Vol] 140 mg/dL [facility] Laboratory - Hematology and Cell countson 11-26-2020 HbA1c (Bld) [Mass fraction] 6.5 % High 4.3 - 5.6 % [facility] VL LOWER EXTREMITY VENOUS RI GHT [id number] 08-29-2020 [facility] Right Lower Extremity Venous Duplex Report Patient Ravindra CYRIL: 1945 Study 08/29/2020 Name: Mikel Davis (75yrs) Date: Age: 75 Account: [id number] Gender: F Loc: BP: Ordering Physician: Komal Cohn Zoology Professor: Adrienne Williamson RDMS, RVT Interpreting Physician: Gracie Michele MD Location: [facility] Indications: DVT. Preliminary result was reported to [...] supine position. Images were obtained using a [employer] E9 vascular ultrasound machine. Venous flow and [...] signed by Gracie Michele MD 08/29/2020 15:[address] [facility] [place], [place] [facility] Incoming Cardiology Results From Lilliana/Bhakti - 08/29/2020 3:12 PM [facility] Right Lower Extremity Venous Duplex Report Patient Ravindra, : 1945 Study 08/29/2020 Name: Mikel Davis (75yrs) Date: Age: 75 Account: [id number] Gender: F Loc: BP: Ordering Physician: Komal Cohn Zoology Professor: Adrienne Williamson RDMS, RVT Interpreting Physician: Gracie Michele MD Location: [facility] Indications: DVT. Preliminary result was reported to [...] supine position. Images were obtained using a [employer] E9 vascular ultrasound machine. Venous flow and [...] signed by Gracie Michele MD 08/29/2020 15:12 [place], [place] CT Facial Bones WO ContrastO rdered By: Melanie Padilla on 08-25-2019 Patient Name: MIKEL WINSTON ---CT--- Exam Date/Time 08/25/2019 17:45:[address] Maxillofacial w/o Contrast Ordering Physician BAYRON PADILLA TAYLOR Accession Number [id number] CPT4 Codes 63628 () Reason For Exam fall, head injury, [...] Ordering Physician BAYRON PADILLA TAYLOR Accession Number [id number] CPT4 Codes 63325 () Reason For Exam fall, head injury, [...] JOHN Transcribed Date and Time: 08/25/2019 5:56 [facility]: CT Head WO ContrastOrdered B y: Melanie Padilla on 08-25-2019 Patient Name: MIKEL WINSTON ---CT--- Exam Date/Time 08/25/2019 17:45:[address] Head or Brain w/o Contrast Ordering Physician BAYRON PADILLA TAYLOR Accession Number [id number] CPT4 Codes 94350 () Reason For Exam fall, head injury [...] JOHN Transcribed Date and Time: 08/25/2019 5:48 [facility] Work Phone: [facility], [facility] Incoming Radiology Results From [facility] - 08/25/2019 5:48 PM EST Patient Name: MIKEL WINSTON ---CT--- Exam Date/Time 08/25/2019 17:45:[address] Head or Brain w/o Contrast Ordering Physician BAYRON PADILLA TAYLOR Accession Number [id number] CPT4 Codes 78273 () Reason For Exam fall, head injury [...] JOHN Transcribed Date and Time: 08/25/2019 5:48 [facility] Work Phone: XR CHEST PORTABLEOrdered By: Melanie Padilla on 08-25-2019 Patient Name: MIKEL WINSTON ---Diagnostic Radiology--- Exam Date/Time 08/25/2019 17:21:32 EST Exam CR Chest Portable Ordering Physician BAYRON PADILLA TAYLOR Accession Number [id number] CPT4 Codes 00808 () Reason For Exam b/l anterolateral rib [...] Phone: [facility], [facility] Incoming Radiology Results From [facility] - 08/25/2019 5:34 PM EST Patient Name: MIKEL WINSTON ---Diagnostic Radiology--- Exam Date/Time 08/25/2019 17:21:32 EST Exam CR Chest Portable Ordering Physician BAYRON PADILLA TAYLOR Accession Number [id number] CPT4 Codes 51682 () Reason For Exam b/l anterolateral rib [...] Ordering Physician BAYRON PADILLA TAYLOR Accession Number [id number] CPT4 Codes 01420 () Reason For Exam left knee pain, [...] Time: 08/25/2019 5:34 [facility] Work Phone: [facility] From [facility] - 08/25/2019 5:34 PM EST Patient Name: MIKEL WINSTON ---Diagnostic Radiology--- Exam Date/Time 08/25/2019 17:21:32 EST Exam CR Knee 3 Views Left Ordering Physician BAYRON PADILLA TAYLOR Accession Number [id number] CPT4 Codes 48066 () Reason For Exam left knee pain, [...] JOHN Transcribed Date and Time: 08/25/2019 5:34 [facility] Work Phone: XR Shoulder Right 2 VWOrdere d By: Melanie Padilla on 08-25-2019 Patient Name: MIKEL WINSTON ---Diagnostic Radiology--- Exam Date/Time 08/25/2019 17:21:32 EST Exam CR Shoulder 2+ Views Right Ordering Physician BAYRON PADILLA TAYLOR Accession Number [id number] CPT4 Codes 08365 () Reason For Exam right shoulder pain, [...] JOHN Transcribed Date and Time: 08/25/2019 5:32 [facility] Work Phone: [facility] Incoming Radiology Results From [facility] - 08/25/2019 5:33 PM EST Patient Name: MIKEL WINSTON ---Diagnostic Radiology--- Exam Date/Time 08/25/2019 17:21:32 EST Exam CR Shoulder 2+ Views Right Ordering Physician BAYRON PADILLA TAYLOR Accession Number [id number] CPT4 Codes 36407 () Reason For Exam right shoulder pain, [...] JOHN Transcribed Date and Time: 08/25/2019 5:32 [facility] Work Phone: Vital Signs Date Time Vital Sign Value Performing Clinician Facility 01-11-2025 15:30-0400 Diastolic blood pressure 74 mm[Hg] Meet Martinez BRUNNER Work Phone: [facility] 01-11-2025 15:30-0400 Systolic blood pressure 144 mm[Hg] Meet Martinez BRUNNER Work Phone: [facility] 01-11-2025 15:16-0400 Body height 162.6 cm Meet Martinez BRUNNER Work Phone: [facility] 01-11-2025 15:16-0400 Body mass index (BMI) [Ratio] 34.67 kg/m2 Meet Martinez BRUNNER Work Phone: [facility] 01-11-2025 15:16-0400 Body weight 91.63 kg Meet Martinez BRUNNER Work Phone: [facility] 01-11-2025 15:16-0400 Heart rate 84 /min Meet Martinez BRUNNER Work Phone: [facility] 01-11-2025 15:16-0400 SaO2% (BldA) [Mass fraction] 97 % Meet Martinez BRUNNER Work Phone: [facility] 07-04-2024 07:27-0500 Body temperature 98.49 [degF] Kaiden David MD Work Phone: [facility] 07-04-2024 07:27-0500 Diastolic blood pressure 62 mm[Hg] Kaiden David MD Work Phone: [facility] 07-04-2024 07:27-0500 Heart rate 86 /min Kaiden David MD Work Phone: [facility] 07-04-2024 07:27-0500 Respiratory rate 20 /min Kaiden David MD Work Phone: [facility] 07-04-2024 07:27-0500 SaO2% (BldA) [Mass fraction] 99 % Kaiden David MD Work Phone: [facility] 07-04-2024 07:27-0500 Systolic blood pressure 142 mm[Hg] Kaiden David MD Work Phone: [facility] 06-29-2024 08:31-0500 Body height 162.6 cm Kaiden David MD Work Phone: [facility] 06-26-2024 08:31-0500 SaO2% (BldA) [Mass fraction] 96.6 % Kaiden David MD Work Phone: [facility] 06-11-2024 13:54-0500 Diastolic blood pressure 90 mm[Hg] [place] Lalit DO Work Phone: [facility] 06-11-2024 13:54-0500 Systolic blood pressure 143 mm[Hg] [place] Lalit DO Work Phone: [facility] 06-11-2024 13:13-0500 Body height 162.6 cm Komal Lalit DO Work Phone: [facility] 06-11-2024 13:13-0500 Body mass index (BMI) [Ratio] 32.61 kg/m2 Komal Lalit DO Work Phone: [facility] 06-11-2024 13:13-0500 Body temperature 97.81 [degF] Komal Lalit DO Work Phone: [facility] 06-11-2024 13:13-0500 Body weight 86.18 kg Komal Lalit DO Work Phone: [facility] 06-11-2024 13:13-0500 Heart rate 92 /min Komal Lalit DO Work Phone: [facility] 06-11-2024 13:13-0500 SaO2% (BldA) [Mass fraction] 98 % Komal Lalit DO Work Phone: [facility] 06-01-2024 12:58-0400 Body temperature 98.8 [degF] Kimi Tylerton DO Work Phone: [facility] 06-01-2024 12:58-0400 Diastolic blood pressure 37 mm[Hg] Kimi Tylerton DO Work Phone: [facility] 06-01-2024 12:58-0400 Heart rate 66 /min Kimi Tylerton DO Work Phone: [facility] 06-01-2024 12:58-0400 Respiratory rate 17 /min Kimi Tylerton DO Work Phone: [facility] 06-01-2024 12:58-0400 SaO2% (BldA) [Mass fraction] 94 % Kimi Tylerton DO Work Phone: [facility] 06-01-2024 12:58-0400 Systolic blood pressure 126 mm[Hg] Kimi Tylerton DO Work Phone: [facility] 05-29-2024 22:29-0400 Body mass index (BMI) [Ratio] 36.56 kg/m2 Kimi Tylerton DO Work Phone: [facility] 05-29-2024 22:29-0400 Body weight 96.62 kg Kimi Tylerton DO Work Phone: [facility] 05-29-2024 18:40-0400 Body height 162.6 cm Kimi Tylerton DO Work Phone: [facility] 04-27-2024 16:08-0400 Body height 162.6 cm [place] Lalit DO Work Phone: [facility] 04-27-2024 16:08-0400 Body mass index (BMI) [Ratio] 33.99 kg/m2 Komal Lalit DO Work Phone: [facility] 04-27-2024 16:08-0400 Body temperature 98.1 [degF] Komal Lalit DO Work Phone: [facility] 04-27-2024 16:08-0400 Body weight 89.81 kg Komal Lalit DO Work Phone: [facility] 04-27-2024 16:08-0400 Diastolic blood pressure 64 mm[Hg] Komal Lalit DO Work Phone: [facility] 04-27-2024 16:08-0400 Heart rate 61 /min [place] Lalit DO Work Phone: [facility] 04-27-2024 16:08-0400 SaO2% (BldA) [Mass fraction] 96 % [place] Lalit DO Work Phone: [facility] 04-27-2024 16:08-0400 Systolic blood pressure 130 mm[Hg] [place] Lalit DO Work Phone: [facility] [facility] 04-18-2024 13:52-0400 Body height 162.6 cm Jose Joel MD Work Phone: [facility] 04-18-2024 13:52-0400 Body mass index (BMI) [Ratio] 33.81 kg/m2 Jose Joel MD Work Phone: [facility] 04-18-2024 13:52-0400 Body weight 89.36 kg Jose Joel MD Work Phone: [facility] 03-16-2024 15:22-0400 Body height 162.6 cm [place] Lalit DO Work Phone: [facility] 03-16-2024 15:22-0400 Body mass index (BMI) [Ratio] 33.64 kg/m2 Komal Lalit DO Work Phone: [facility] 03-16-2024 15:22-0400 Body weight 88.91 kg [place] Lalit DO Work Phone: [facility] 03-16-2024 15:22-0400 Diastolic blood pressure 52 mm[Hg] Komal Lalit DO Work Phone: [facility] 03-16-2024 15:22-0400 Heart rate 60 /min Komal Lalit DO Work Phone: [facility] 03-16-2024 15:22-0400 SaO2% (BldA) [Mass fraction] 99 % [place] Lalit DO Work Phone: [facility] 03-16-2024 15:22-0400 Systolic blood pressure 120 mm[Hg] Komal Lalit DO Work Phone: [facility] 03-14-2024 13:06-0400 Body height 162.6 cm Jose Joel MD Work Phone: [facility] 03-14-2024 13:06-0400 Body mass index (BMI) [Ratio] 33.81 kg/m2 Jose Joel MD Work Phone: [facility] 03-14-2024 13:06-0400 Body weight 89.36 kg Jose Joel MD Work Phone: [facility] 03-14-2024 13:06-0400 Diastolic blood pressure 84 mm[Hg] Jose Joel MD Work Phone: [facility] 03-14-2024 13:06-0400 Heart rate 70 /min Jose Joel MD Work Phone: [facility] 03-14-2024 13:06-0400 SaO2% (BldA) [Mass fraction] 99 % Jose Joel MD Work Phone: [facility] 03-14-2024 13:06-0400 Systolic blood pressure 178 mm[Hg] Jose Joel MD Work Phone: [facility] 02-27-2024 15:18-0400 Body height 162.6 cm [place] Lalit DO Work Phone: [facility] 02-27-2024 15:18-0400 Body mass index (BMI) [Ratio] 34.16 kg/m2 Komal Lalit DO Work Phone: [facility] 02-27-2024 15:18-0400 Body temperature 97.5 [degF] Komal Lalit DO Work Phone: [facility] 02-27-2024 15:18-0400 Body weight 90.27 kg [place] Lalit DO Work Phone: [facility] 02-27-2024 15:18-0400 Diastolic blood pressure 60 mm[Hg] Komal Lalit DO Work Phone: [facility] 02-27-2024 15:18-0400 Heart rate 63 /min [place] Lalit DO Work Phone: [facility] 02-27-2024 15:18-0400 SaO2% (BldA) [Mass fraction] 98 % [place] Lalit DO Work Phone: [facility] 02-27-2024 15:18-0400 Systolic blood pressure 140 mm[Hg] Komal Lalit DO Work Phone: [facility] 02-02-2024 08:00-0400 Body temperature 96.8 [degF] Surjit Sanchez MD Work Phone: [facility] 02-02-2024 08:00-0400 Diastolic blood pressure 50 mm[Hg] Surjit Sanchez MD Work Phone: [facility] 02-02-2024 08:00-0400 Heart rate 55 /min Surjit Sanchez MD Work Phone: [facility] 02-02-2024 08:00-0400 Respiratory rate 16 /min Surjit Sanchez MD Work Phone: [facility] 02-02-2024 08:00-0400 SaO2% (BldA) [Mass fraction] 92 % Surjit Sanchez MD Work Phone: [facility] 02-02-2024 08:00-0400 Systolic blood pressure 113 mm[Hg] Surjit Sanchez MD Work Phone: [facility] 01-28-2024 21:30-0400 Body mass index (BMI) [Ratio] 33.06 kg/m2 Surjit Sanchez MD Work Phone: [facility] 01-28-2024 21:30-0400 Body weight 92.9 kg Surjit Sanchez MD Work Phone: [facility] 01-28-2024 19:49-0400 Body height 167.6 cm Surjit Sanchez MD Work Phone: [facility] 01-06-2024 13:09-0400 Body height 162.6 cm [place] Lalit DO Work Phone: [facility] 01-06-2024 13:09-0400 Body mass index (BMI) [Ratio] 35.36 kg/m2 Komal Lalit DO Work Phone: [facility] 01-06-2024 13:09-0400 Body temperature 98.01 [degF] [place] Lalit DO Work Phone: [facility] 01-06-2024 13:09-0400 Body weight 93.44 kg Komal Lalit DO Work Phone: [facility] 01-06-2024 13:09-0400 Diastolic blood pressure 70 mm[Hg] [place] Lalit DO Work Phone: [facility] 01-06-2024 13:090400 Heart rate 61 /min [place] Lalit DO Work Phone: [facility] 01-06-2024 13:09-0400 SaO2% (BldA) [Mass fraction] 97 % [place] Lalit DO Work Phone: [facility] 01-06-2024 13:09-0400 Systolic blood pressure 134 mm[Hg] Komal Lalit DO Work Phone: [facility] 12-07-2023 [id number] Body height 162.6 cm [place] Lalit DO Work Phone: [facility] 12-07-2023 10:21-0400 Body mass index (BMI) [Ratio] 35.87 kg/m2 [place] Lalit DO Work Phone: [facility] 12-07-2023 10:21-0400 Body temperature 98.2 [degF] [place] Lalit DO Work Phone: [facility] 12-07-2023 [id number] Body weight 94.8 kg Komal Lalit DO Work Phone: [facility] 12-07-2023 10:21-0400 Diastolic blood pressure 60 mm[Hg] Komal Lalit DO Work Phone: [facility] 12-07-2023 10:21-0400 Heart rate 80 /min Komal Lalit DO Work Phone: [facility] 12-07-2023 10:21-0400 SaO2% (BldA) [Mass fraction] 96 % Komal Lalit DO Work Phone: [facility] 12-07-2023 10:21-0400 Systolic blood pressure 118 mm[Hg] [place] Lalit DO Work Phone: [facility] 06-27-2023 10:51-0500 Body height 162.6 cm Komal Lalit DO Work Phone: [facility] 06-27-2023 10:51-0500 Body temperature 97.5 [degF] [place] Lalit DO Work Phone: [facility] 06-27-2023 10:51-0500 Body weight 90.72 kg [place] Lalit DO Work Phone: [facility] 06-27-2023 10:51-0500 Diastolic blood pressure 60 mm[Hg] [place] Lalit DO Work Phone: [facility] 06-27-2023 10:51-0500 Heart rate 67 /min [place] Lalit DO Work Phone: [facility] 06-27-2023 10:51-0500 SaO2% (BldA) [Mass fraction] 99 % Komal Lalit DO Work Phone: [facility] 06-27-2023 10:51-0500 Systolic blood pressure 128 mm[Hg] Komal Lalit DO Work Phone: [facility] 03-30-2023 10:44-0400 Body height 162.6 cm Jose Joel MD Work Phone: [facility] 03-30-2023 10:44-0400 Body mass index (BMI) [Ratio] 33.88 kg/m2 Jose Joel MD Work Phone: [facility] 03-30-2023 10:44-0400 Body weight 89.54 kg Jose Joel MD Work Phone: [facility] 03-30-2023 10:44-0400 Diastolic blood pressure 70 mm[Hg] Jose Joel MD Work Phone: [facility] 03-30-2023 10:44-0400 Heart rate 73 /min Jose Joel MD Work Phone: [facility] 03-30-2023 10:44-0400 Respiratory rate 16 /min Jose Joel MD Work Phone: [facility] 03-30-2023 10:44-0400 SaO2% (BldA) [Mass fraction] 96 % Jose Joel MD Work Phone: [facility] 03-30-2023 10:44-0400 Systolic blood pressure 130 mm[Hg] Jose Joel MD Work Phone: [facility] 03-14-2023 10:46-0400 Body height 162.6 cm Komal Lalit DO Work Phone: [facility] 03-14-2023 10:46-0400 Body temperature 97.59 [degF] [place] Lalit DO Work Phone: [facility] 03-14-2023 10:46-0400 Body weight 88.91 kg Komal Lalit DO Work Phone: [facility] 03-14-2023 10:46-0400 Diastolic blood pressure 68 mm[Hg] [place] Lalit DO Work Phone: [facility] 03-14-2023 10:46-0400 Heart rate 66 /min Komal Lalit DO Work Phone: [facility] 03-14-2023 10:46-0400 SaO2% (BldA) [Mass fraction] 99 % [place] Lalit DO Work Phone: [facility] 03-14-2023 10:46-0400 Systolic blood pressure 142 mm[Hg] [place] Lalit DO Work Phone: [facility] 03-07-2023 11:02-0400 Body height 162.6 cm Komal Lalit DO Work Phone: [facility] 03-07-2023 11:02-0400 Body temperature 98.2 [degF] [place] Lalit DO Work Phone: [facility] 03-07-2023 11:02-0400 Body weight 89.81 kg [place] Lalit DO Work Phone: [facility] 03-07-2023 11:02-0400 Diastolic blood pressure 60 mm[Hg] [place] Lalit DO Work Phone: [facility] 03-07-2023 11:02-0400 Heart rate 61 /min Komal Lalit DO Work Phone: [facility] 03-07-2023 11:02-0400 SaO2% (BldA) [Mass fraction] 98 % [place] Lalit DO Work Phone: [facility] 03-07-2023 11:02-0400 Systolic blood pressure 130 mm[Hg] Komal Lalit DO Work Phone: [facility] 12-08-2022 15:59-0400 Body height 165.1 cm Charley Parker SHOVEL ENGINEER - INDUSTRIAL ENGINEERING MANAGER Work Phone: [facility] 12-08-2022 15:59-0400 Body mass index (BMI) [Ratio] 31.95 kg/m2 Charley Jesusk SHOVEL ENGINEER - INDUSTRIAL ENGINEERING MANAGER Work Phone: [facility] 12-08-2022 15:59-0400 Body weight 87.09 kg Charley Parker SHOVEL ENGINEER - INDUSTRIAL ENGINEERING MANAGER Work Phone: [facility] 11-19-2022 09:14-0400 Diastolic blood pressure 61 mm[Hg] Ajit Nesheim DO Work Phone: [facility] 11-19-2022 09:14-0400 Heart rate 64 /min Ajit Nesheim DO Work Phone: [facility] 11-19-2022 09:14-0400 Systolic blood pressure 146 mm[Hg] Ajit Nesheim DO Work Phone: [facility] 11-18-2022 19:17-0400 Body temperature 98.4 [degF] Ajit Nesheim DO Work Phone: [facility] 11-18-2022 19:17-0400 Respiratory rate 18 /min Ajit Nesheim DO Work Phone: [facility] 11-18-2022 19:17-0400 SaO2% (BldA) [Mass fraction] 99 % Ajit Nesheim DO Work Phone: [facility] 09-30-2022 11:14-0500 Body mass index (BMI) [Ratio] 31.95 kg/m2 Charley Jesusk SHOVEL ENGINEER - INDUSTRIAL ENGINEERING MANAGER Work Phone: [facility] 09-30-2022 11:14-0500 Body weight 87.09 kg Charley Jesusk SHOVEL ENGINEER - INDUSTRIAL ENGINEERING MANAGER Work Phone: [facility] 09-30-2022 11:14-0500 Diastolic blood pressure 70 mm[Hg] Charley Elena SHOVEL ENGINEER - INDUSTRIAL ENGINEERING MANAGER Work Phone: [facility] 09-30-2022 11:14-0500 Heart rate 74 /min Charley Elena SHOVEL ENGINEER - INDUSTRIAL ENGINEERING MANAGER Work Phone: [facility] 09-30-2022 11:14-0500 Respiratory rate 16 /min Charley Elena SHOVEL ENGINEER - INDUSTRIAL ENGINEERING MANAGER Work Phone: [facility] 09-30-2022 11:14-0500 SaO2% (BldA) [Mass fraction] 97 % Charley Villalpandolak SHOVEL ENGINEER - INDUSTRIAL ENGINEERING MANAGER Work Phone: [facility] 09-30-2022 11:14-0500 Systolic blood pressure 138 mm[Hg] Charley Elena SHOVEL ENGINEER - INDUSTRIAL ENGINEERING MANAGER Work Phone: [facility] 08-16-2022 11:14-0500 Body height 162.6 cm [facility] DO Work Phone: [facility] 08-16-2022 11:14-0500 Body temperature 98.2 [degF] Komal Lalit DO Work Phone: [facility] 08-16-2022 11:14-0500 Body weight 86.18 kg [place] Lalit DO Work Phone: [facility] 08-16-2022 11:14-0500 Diastolic blood pressure 62 mm[Hg] [place] Lalit DO Work Phone: [facility] 08-16-2022 11:14-0500 Heart rate 67 /min [place] Lalit DO Work Phone: [facility] 08-16-2022 11:14-0500 SaO2% (BldA) [Mass fraction] 98 % Komal Lalit DO Work Phone: [facility] 08-16-2022 11:14-0500 Systolic blood pressure 130 mm[Hg] [place] Lalit DO Work Phone: [facility] 05-03-2022 11:10-0400 Body height 162.6 cm [place] Lalit DO Work Phone: [facility] 05-03-2022 11:10-0400 Body temperature 97.81 [degF] [place] Lalit DO Work Phone: [facility] 05-03-2022 11:10-0400 Body weight 85.28 kg [place] Lalit DO Work Phone: [facility] 05-03-2022 11:10-0400 Diastolic blood pressure 58 mm[Hg] [place] Lalit DO Work Phone: [facility] 05-03-2022 11:10-0400 Heart rate 63 /min Komal Lalit DO Work Phone: [facility] 05-03-2022 11:10-0400 SaO2% (BldA) [Mass fraction] 96 % Komal Lalit DO Work Phone: [facility] 05-03-2022 11:10-0400 Systolic blood pressure 118 mm[Hg] [place] Lalit DO Work Phone: [facility] 12-22-2021 15:08-0400 Body temperature 96.21 [degF] LINWOOD Tejeda MD Work Phone: [facility] 12-22-2021 15:08-0400 Diastolic blood pressure 58 mm[Hg] LINWOOD Tejeda MD Work Phone: [facility] 12-22-2021 15:08-0400 Heart rate 67 /min LINWOOD Tejeda MD Work Phone: [facility] 12-22-2021 15:08-0400 Respiratory rate 18 /min LINWOOD Tejeda MD Work Phone: [facility] 12-22-2021 15:08-0400 SaO2% (BldA) [Mass fraction] 99 % LINWOOD Tejeda MD Work Phone: [facility] 12-22-2021 15:08-0400 Systolic blood pressure 137 mm[Hg] LINWOOD Tejeda MD Work Phone: [facility] 12-21-2021 13:11-0400 Body height 165.1 cm LINWOOD Tejeda MD Work Phone: [facility] 12-21-2021 06:28-0400 Body mass index (BMI) [Ratio] 32.57 kg/m2 LINWOOD Tejeda MD Work Phone: [facility] 12-21-2021 06:28-0400 Body weight 88.77 kg LINWOOD Tejeda MD Work Phone: [facility] 11-30-2021 13:20-0400 Body temperature 98.29 [degF] Komal Lalit DO Work Phone: [facility] 11-30-2021 13:20-0400 Body weight 89.36 kg [place] Lalit DO Work Phone: [facility] 11-30-2021 13:20-0400 Diastolic blood pressure 78 mm[Hg] Komal Lalit DO Work Phone: [facility] 11-30-2021 13:20-0400 Heart rate 67 /min Komal Lalit DO Work Phone: [facility] 11-30-2021 13:20-0400 SaO2% (BldA) [Mass fraction] 97 % Komal Lalit DO Work Phone: [facility] 11-30-2021 13:20-0400 Systolic blood pressure 142 mm[Hg] Komal Lalit DO Work Phone: [facility] 09-03-2021 14:16-0500 Body height 162.6 cm [place] Lalit DO Work Phone: [facility] 09-03-2021 14:16-0500 Body temperature 96.91 [degF] [place] Lalit DO Work Phone: [facility] 09-03-2021 14:16-0500 Body weight 89.81 kg Komal Lalit DO Work Phone: [facility] 09-03-2021 14:16-0500 Diastolic blood pressure 78 mm[Hg] Komal Lalit DO Work Phone: [facility] 09-03-2021 14:16-0500 Heart rate 86 /min Komal Lalit DO Work Phone: [facility] 09-03-2021 14:16-0500 SaO2% (BldA) [Mass fraction] 97 % [place] Lalit DO Work Phone: [facility] 09-03-2021 14:16-0500 Systolic blood pressure 144 mm[Hg] [place] Lalit DO Work Phone: [facility] 05-28-2021 13:39-0400 Body height 162.6 cm Komal Lalit DO Work Phone: [facility] 05-28-2021 13:39-0400 Body temperature 98.4 [degF] [place] Lalit DO Work Phone: [facility] 05-28-2021 13:39-0400 Body weight 90.72 kg [place] Lalit DO Work Phone: [facility] 05-28-2021 13:39-0400 Diastolic blood pressure 72 mm[Hg] [place] Lalit DO Work Phone: [facility] 05-28-2021 13:39-0400 Heart rate 78 /min Komal Lalit DO Work Phone: [facility] 05-28-2021 13:39-0400 SaO2% (BldA) [Mass fraction] 98 % Komal Lalit DO Work Phone: [facility] 05-28-2021 13:39-0400 Systolic blood pressure 130 mm[Hg] [place] Lalit DO Work Phone: [facility] 02-25-2021 11:21-0400 Diastolic blood pressure 80 mm[Hg] [place] Lalit DO Work Phone: [facility] 02-25-2021 11:21-0400 Systolic blood pressure 140 mm[Hg] Komal Lalit DO Work Phone: [facility] 02-25-2021 10:42-0400 Body height 162.6 cm [place] Lalit DO Work Phone: [facility] 02-25-2021 10:42-0400 Body temperature 97.2 [degF] Komal Lalit DO Work Phone: [facility] 02-25-2021 10:42-0400 Body weight 92.08 kg Komal Lalit DO Work Phone: [facility] 02-25-2021 10:42-0400 Heart rate 65 /min Komal Lalit DO Work Phone: [facility] 02-25-2021 10:42-0400 SaO2% (BldA) [Mass fraction] 98 % [place] Lalit DO Work Phone: [facility] 11-26-2020 11:52-0400 Diastolic blood pressure 50 mm[Hg] [place] Lalit Work Phone: [facility] 11-26-2020 11:52-0400 Systolic blood pressure 130 mm[Hg] [place] Lalit Work Phone: [facility] 11-26-2020 11:33-0400 Body height 162.6 cm Komal Lalit Work Phone: [facility] 11-26-2020 11:33-0400 Body temperature 96.21 [degF] [place] Lalit Work Phone: [facility] 11-26-2020 11:33-0400 Body weight 90.27 kg [place] Lalit Work Phone: [facility] 11-26-2020 11:33-0400 Heart rate 70 /min [place] Lalit Work Phone: [facility] 11-26-2020 11:33-0400 SaO2% (BldA) [Mass fraction] 97 % Komal Lalit Work Phone: [facility] 08-25-2019 19:19-0500 Diastolic blood pressure 78 mm[Hg] Komal Lalit DO Work Phone: [facility] Work Phone: 08-25-2019 19:19-0500 Heart rate 78 /min Komal Lalit DO Work Phone: [facility] Work Phone: 08-25-2019 19:19-0500 Respiratory rate 18 /min [place] Lalit DO Work Phone: [facility] Work Phone: 08-25-2019 19:19-0500 SaO2% (BldA) [Mass fraction] 98 % [place] Lalit DO Work Phone: [facility] Work Phone: 08-25-2019 19:19-0500 Systolic blood pressure 144 mm[Hg] Komal Lalit DO Work Phone: [facility] Work Phone: 08-25-2019 15:49-0500 Body mass index (BMI) [Ratio] 33.64 kg/m2 [place] Lalit DO Work Phone: [facility] Work Phone: 08-25-2019 15:49-0500 Body temperature 98.1 [degF] [place] Lalit DO Work Phone: [facility] Work Phone: 08-25-2019 15:49-0500 Body weight 88.91 kg Komal Cohn DO Work Phone: [facility] Work Phone: Encounters Encounter Date Encounter Type Care Provider Facility Start: 01-11-2025 End: 01-11-2025 Office outpatient visit 15 minutes Meet Madonna Poloe MD Work Phone: [facility] [place] Comment on above: Second degree heart block (Primary Dx); Essential hypertension; Cardiac pacemaker in situ Start: 01-11-2025 End: 01-11-2025 ambulatory MEET POOLE [facility] Start: 01-10-2025 ambulatory Julieth QURESHI Facili ty:[facility] Start: 12-25-2024 ambulatory Julieth QURESHI Facili ty:[facility] Start: 11-29-2024 End: 11-29-2024 ambulatory [facility] Start: 11-26-2024 [facility] Start: 11-26-2024 End: 11-26-2024 ambulatory Julieth QURESHI Facility:[facility] Start: 11-12-2024 Registered Referred Julieth Olmedo MD [facility] Start: 11-12-2024 End: 11-12-2024 ambulatory Julieth QURESHI Facility:[facility] Start: 11-02-2024 End: 11-02-2024 ambulatory Julieth Olmedo MD [facility] Work Phone: Start: 11-02-2024 End: 11-02-2024 Departed Referred Julieth Olmedo MD [facility] Start: 11-02-2024 [facility] Start: 11-02-2024 End: 11-02-2024 ambulatory Julieth QURESHI Facility:[facility] Start: 10-26-2024 End: 10-26-2024 ambulatory Julieth Olmedo MD [facility] Work Phone: Start: 10-26-2024 End: 10-26-2024 Departed Referred Julieth Olmedo MD [facility] Start: 10-26-2024 Registered Referred Julieth Olmedo MD [facility] Start: 10-26-2024 End: 10-26-2024 ambulatory Julieth QURESHI Facility:[facility] Start: 10-15-2024 End: 10-15-2024 ambulatory Julieth Olmedo MD [facility] Work Phone: Start: 10-15-2024 End: 10-15-2024 Departed Referred Julieth Olmedo MD [facility] Start: 10-15-2024 Registered Referred Julieth Olmedo MD [facility] Start: 10-15-2024 End: 10-15-2024 ambulatory Julieth QURESHI Facility:[facility] Start: 10-05-2024 End: 10-05-2024 ambulatory Julieth Olmedo MD [facility] Work Phone: Start: 10-05-2024 End: 10-05-2024 Departed Referred Julieth Olmedo MD [facility] Start: 10-05-2024 End: 10-05-2024 ambulatory Julieth QURESHI Facility:[facility] Start: 10-01-2024 End: 10-25-2024 Telephone encounter Jose Joel MD Work Phone: [facility] Comment on above: Med Management Start: 09-25-2024 ambulatory Julieth QURESHI Facili ty:[facility] Start: 09-25-2024 Registered Referred Julieth Olmedo MD [facility] Start: 08-30-2024 End: 08-30-2024 ambulatory [facility] Start: 08-07-2024 ambulatory Julieth QURESHI Facili ty:[facility] Start: 08-07-2024 Registered Referred Julieth Olmedo MD [facility] Start: 08-03-2024 End: 08-03-2024 Home visit Gogo Barbosa RN [facility] [employer] Comment on above: Transition Of Care ( SNF Update (Custodial resident)) Start: 08-03-2024 End: 08-03-2024 ambulatory Gogo Barbosa RN [facility] [employer] Start: 08-03-2024 [facility] Start: 08-02-2024 ambulatory Julieth QURESHI Facili ty:[facility] Start: 08-02-2024 Registered Referred Julieth Olmedo MD [facility] Start: 07-25-2024 ambulatory Julieth QURESHI Facili ty:[facility] Start: 07-25-2024 Registered Referred Julieth Olmedo MD [facility] Start: 07-20-2024 End: 07-20-2024 Departed Referred Julieth Olmedo MD [facility] Start: 07-19-2024 End: 07-20-2024 ambulatory Julieth QURESHI Facility:[facility] Start: 07-19-2024 Registered Referred Julieth Olmedo MD [facility] Start: 07-18-2024 End: 07-18-2024 Departed Referred Julieth Olmedo MD [facility] Start: 07-18-2024 End: 07-18-2024 ambulatory Julieth QURESHI Facility:[facility] Start: 07-17-2024 End: 07-17-2024 Departed Referred Julieth Olmedo MD [facility] Start: 07-17-2024 End: 07-17-2024 ambulatory Julieth QURESHI Facility:[facility] Start: 2024 End: 2024 ambulatory Gogo Barbosa RN [facility] [employer] Start: 2024 End: 2024 Home visit Gogo Barbosa RN [facility] [employer] Comment on above: Transition Of Care ( [facility] Discharge to SNF) Start: 07-11-2024 ambulatory Julieth QURESHI Facili ty:[facility] Start: 07-11-2024 [facility]: 07-10-[facility]24 ambulatory Julieth Eli ty:[facility] Start: 07-09-2024 ambulatory Julieth Eli ty:[facility] Start: 06-26-2024 End: 06-26-2024 Evaluation and management of inpatient [facility] Start: 06-25-2024 End: 07-04-2024 Evaluation and management of inpatient Kaiden David MD Work Phone: [facility] Cardiac Progressive Care Unit PCU 2E Start: 06-20-2024 End: 06-20-2024 [facility] Start: 06-11-2024 End: 06-11-2024 ambulatory [place] MARY[place] CO[place] Facility:[facility] Start: 06-11-2024 End: 06-11-2024 Patient encounter procedure Komal Maryan Cohn DO Work Phone: [facility] Comment on above: Primary hypertension (Primary Dx); Systolic murmur; Symptomatic sinus bradycardia; CKD (chronic kidney disease) stage 4, GFR 15-29 ml/min ([facility]); Class 1 obesity with body mass index (BMI) of 32.0 to 32.9 in adult, unspecified obesity type, unspecified whether serious comorbidity present Start: 06-06-2024 End: 06-06-2024 Telephone encounter Komal Cohn DO Work Phone: [facility] Comment on above: Home Care Arrangemen ts Start: 06-01-2024 End: 06-01-2024 Orders Only Kyung Hogan SHOVEL ENGINEER - INDUSTRIAL ENGINEERING MANAGER Work Phone: [facility] Cardiology [facility] Comment on above: BARRY (acute kidney [...] encounter procedure Komal Cohn DO Work Phone: [facility] Comment on above: Primary hypertension (Primary Dx); Type 2 diabetes mellitus with stage 4 chronic kidney disease, without long-term current use of insulin ([facility]); CKD (chronic kidney disease) stage 4, GFR 15-29 ml/min ([facility]); Cellulitis of left lower leg; Class 1 obesity with body mass index (BMI) of 33.0 to 33.9 in adult, unspecified obesity type, unspecified whether serious comorbidity present; Bilateral leg edema; Systolic murmur; Other depression Start: 04-27-2024 End: 04-27-2024 ambulatory KOMAL COHN Facility:[facility] Start: 04-25-2024 End: 04-25-2024 ambulatory LECRIS DOBSON [facility] Start: 04-25-2024 End: 04-25-2024 Subsequent hospital visit by physician Le Hernandez CNP Work Phone: [facility] Vascular Lab Comment on above: Chronic kidney disea se, stage 4 (severe) ([facility]) Start: 04-18-2024 End: 04-18-2024 ambulatory JOSE JOEL [facility] Start: 04-18-2024 End: 04-18-2024 Subsequent hospital visit by physician Jose Joel MD Work Phone: [facility] Non-Invasive Cardiology Comment on above: Coronary artery dise ase involving coronary bypass graft of [place] heart without angina pectoris; Nonrheumatic aortic valve stenosis Start: 04-12-2024 End: 04-13-2024 Refill Komal Cohn DO Work Phone: [facility] Comment on above: Refill Request Start: 04-07-2024 End: 04-10-2024 Refill Komal Cohn DO Work Phone: [facility] Comment on above: Refill Request; Medi cation Question (Citalopram) Start: 04-06-2024 End: 07-06-2024 Transcribe Orders Le Dobson SHOVEL ENGINEER - INDUSTRIAL ENGINEERING MANAGER Work Phone: [facility] Scheduling Comment on above: Chronic kidney disea se, stage 4 (severe) (HCC) (Primary Dx) Start: 03-21-2024 End: 03-21-2024 Telephone encounter Jose Joel MD Work Phone: [facility] Cardiology Comment on above: Results Start: 03-16-2024 End: 03-16-2024 Patient encounter procedure Komal Cohn DO Work Phone: [facility] Comment on above: Cellulitis of left l ower leg (Primary Dx) Start: 03-16-2024 End: 03-16-2024 ambulatory KOMAL COHN Facility:[facility] Start: 03-15-2024 Telephone encounter Komal Cohn DO Work Phone: [facility] Comment on above: Orders (Handicap suad card requested ) Start: 03-14-2024 End: 03-14-2024 ambulatory Latonya Rosado RN [employer] Start: 03-14-2024 Home visit Latonya Rosado RN AG [facility] Comment on above: Transition Of Care B i-weekly phone contact (Recurring) for Transitional Care Management Start: 03-14-2024 End: 03-14-2024 Office outpatient visit 25 minutes Jose Joel MD Work Phone: [facility] Cardiology Comment on above: Nonrheumatic aortic valve stenosis (Primary Dx); Coronary artery disease involving coronary bypass graft of [place] heart without angina pectoris Start: 02-29-2024 ambulatory Latonya Rosado RN [facility] Start: 02-29-2024 Home visit Latonya Rosado RN [facility] Comment on above: Transition Of Care B i-weekly phone contact (Recurring) for Transitional Care Management Start: 02-27-2024 End: 02-27-2024 Patient encounter procedure Komal Maryan Lalit DO Work Phone: [facility] [place] Comment on above: Primary hypertension (Primary Dx); Cellulitis of right lower extremity; Acute cystitis without hematuria; Class 1 obesity with body mass index (BMI) of 34.0 to 34.9 in adult, unspecified obesity type, unspecified whether serious comorbidity present Start: 02-27-2024 End: 02-27-2024 ambulatory [facility] Facility:[facility] Start: 02-15-2024 ambulatory Gogo Barbosa RN [facility] Start: 02-15-2024 Home visit Gogo Barbosa RN Amb [facility] Care Comment on above: Transition Of Care ( Discharged from [facility] to Home ) Transition Of Care ( DC SNF 02/13/24) Initial phone contact for Transitional Care Management Start: 02-15-2024 Telephone encounter [place] Jg mejiamaria victoria Cohn DO Work Phone: [employer] Comment on above: prescription Start: 02-08-2024 ambulatory Sue Claudio RN [employer] Start: 02-08-2024 Home visit Sue Claudio RN [employer] Comment on above: Transition Of Care ( [facility] D/C to SNF 02/02/24) Start: 01-28-2024 End: 02-02-2024 Evaluation and management of inpatient Surjit Sanchez MD Work Phone: [facility] Medical Surgical Unit MSU 4S Comment on above: Cellulitis of right lower extremity (Primary Dx); Acute cystitis without hematuria Start: 01-26-2024 End: 01-26-2024 Subsequent hospital visit by physician Komal Cohn DO Work Phone: [facility] US Imaging Comment on above: Chronic kidney disea se, stage 4 (severe) (HCC) Start: 01-26-2024 End: 01-26-2024 ambulatory [facility] Start: 01-17-2024 End: 04-17-2024 Transcribe Orders Komal Cohn DO Work Phone: [facility] Central Scheduling Comment on above: Chronic kidney disea se, stage 4 (severe) (HCC) (Primary Dx) Start: 01-06-2024 Telephone encounter Komal Cohn DO Work Phone: [facility] Comment on above: Consult (Consult to nephrology, ckd chronic kidney disease state 4 gfr 15-29 confirm [id number]) Consult (Consult to ophthalmology, screening for diabetic retinopathy confirm [id number]) Start: 01-06-2024 End: 01-06-2024 Patient encounter procedure Komal Cohn DO Work Phone: [facility] Comment on above: Type 2 diabetes luz [...] ml/min (HCC) Start: 01-06-2024 End: 01-06-2024 ambulatory [place] MARYAN COHN Facility:[facility] Start: 12-16-2023 Telephone encounter Komal Cohn DO Work Phone: [facility] Start: 12-07-2023 End: 12-07-2023 Patient encounter procedure Komal Cohn DO Work Phone: [facility] Comment on above: Dysuria (Primary Dx) ; Acute UTI; Chronic kidney disease, stage 3b (HCC); Bilateral leg edema; Other depression Start: 12-07-2023 End: 12-07-2023 ambulatory [place] MARYAN COHN Facility:[facility] Start: 12-06-2023 Refill Jose daivla MD Work Phone: [facility]iology Comment on above: Coronary artery dise ase involving coronary bypass graft of [place] heart without angina pectoris Start: 09-28-2023 Refill Komal Cohn DO Work Phone: [facility] Comment on above: Refill Request Start: 07-26-2023 Refill Komal Cohn DO Work Phone: [facility] Comment on above: Refill Request Start: 07-14-2023 Refill Komal Cohn DO Work Phone: [facility] Comment on above: Refill Request Start: 06-29-2023 Telephone encounter Komal Cohn DO Work Phone: [facility] Comment on above: Results (antibiotics ) Start: 06-27-2023 End: 06-27-2023 Patient encounter procedure Komal Cohn DO Work Phone: [facility] Comment on above: Type 2 diabetes luz itus with stage 3 chronic kidney disease, without long-term current use of insulin, unspecified whether stage 3a or 3b CKD (HCC) (Primary Dx); Primary hypertension; Recurrent UTI (urinary tract infection); Heart murmur; Obesity, Class I, BMI 30-34.9 Start: 04-26-2023 Refill Komal Cohn DO Work Phone: [facility] Comment on above: Refill Request Start: 03-30-2023 End: 03-30-2023 Office outpatient visit 25 minutes Jose Joel MD Work Phone: [facility] Cardiology Comment on above: Nonrheumatic aortic valve stenosis (Primary Dx) Start: 03-14-2023 End: 03-14-2023 Patient encounter procedure Komal Cohn DO Work Phone: [facility] Comment on above: Bilateral leg edema (Primary Dx); Cellulitis of skin; Class 1 obesity with body mass index (BMI) of 33.0 to 33.9 in adult, unspecified obesity type, unspecified whether serious comorbidity present Start: 03-08-2023 Telephone encounter Komal Cohn DO Work Phone: [facility] Comment on above: Results Start: 03-07-2023 End: 03-07-2023 Subsequent hospital visit by physician Komal Lalit DO Work Phone: [facility] Vascular Lab Comment on above: Other specified soft tissue disorders Start: 03-07-2023 End: 03-07-2023 Patient encounter procedure Komal Cohn DO Work Phone: [facility] Comment on above: Urinary frequency (P rimary Dx); Right leg swelling; Cellulitis of skin; Bilateral leg edema; Class 1 obesity with body mass index (BMI) of 33.0 to 33.9 in adult, unspecified obesity type, unspecified whether serious comorbidity present Other specified soft tissue disorders (Primary Dx) Start: 03-07-2023 Refill Komal Cohn DO Work Phone: [facility] Comment on above: Refill Request Start: 03-02-2023 Telephone encounter Komal Cohn DO Work Phone: [facility] Comment on above: Appointment Start: 02-18-2023 Refill Komal calderon Lalit DO Work Phone: [facility] Comment on above: Refill Request Start: 12-13-2022 Refill Komal Mcbriderio DO Work Phone: [facility] Comment on above: Refill Request Start: 12-09-2022 Telephone encounter Charley Parker SHOVEL ENGINEER - INDUSTRIAL ENGINEERING MANAGER Work Phone: [facility] Cardiology Comment on above: Results (Echo) Start: 12-08-2022 End: 12-08-2022 Subsequent hospital visit by physician Charley Parker SHOVEL ENGINEER - INDUSTRIAL ENGINEERING MANAGER Work Phone: [facility] Non-Invasive Cardiology Comment on above: Nonrheumatic aortic valve stenosis Start: 11-22-2022 Refill [place] Gerar d Lalit DO Work Phone: [facility] Comment on above: Refill Request Start: 11-17-2022 End: 11-19-2022 Emergency department patient visit Ajit Gray DO Work Phone: [facility] CDU Comment on above: BARRY (acute kidney in jury) (CMS/HCC) (HCC) (Primary Dx); Cystitis Start: 11-10-2022 Telephone encounter Komal Cohn DO Work Phone: [facility] Comment on above: Patient Question Start: 10-18-2022 Refill Komal Gerar d Lalit DO Work Phone: [facility] [place] Comment on above: Refill Request Start: 09-30-2022 End: 09-30-2022 Office outpatient visit 25 minutes Charley Parker SHOVEL ENGINEER - INDUSTRIAL ENGINEERING MANAGER Work Phone: [facility] Cardiology Comment on above: Nonrheumatic aortic valve stenosis (Primary Dx) Start: 09-18-2022 Refill Komal Gerar d Lalit DO Work Phone: [facility] Comment on above: Refill Request Start: 09-16-2022 Refill Komal Gerar d Lalit DO Work Phone: [facility] Comment on above: Refill Request Start: 08-23-2022 Refill [place] Gerar d Lalit DO Work Phone: [facility] Comment on above: Refill Request Start: 08-19-2022 Refill Komal Cohn DO Work Phone: [facility] Comment on above: Refill Request (Charlee rtan) Start: 08-16-2022 Refill Komal Cohn DO Work Phone: [facility] Comment on above: Refill Request Start: 08-16-2022 End: 08-16-2022 Patient encounter procedure Komal Cohn DO Work Phone: [facility] [place] Comment on above: Primary hypertension (Primary Dx); Hyperlipidemia, mixed; Bilateral leg edema; Hypothyroidism, acquired; Acute non-recurrent maxillary sinusitis Start: 08-03-2022 ambulatory Komal Cohn DO Work Phone: [employer] Start: 05-03-2022 End: 05-03-2022 Patient encounter procedure Komal Cohn DO Work Phone: [facility] Comment on above: Primary hypertension (Primary Dx); Hyperlipidemia, mixed; Bilateral leg edema; Type 2 diabetes mellitus without complication, without long-term current use of insulin (HCC) Start: 04-29-2022 Telephone encounter Komal Cohn DO Work Phone: [facility] Comment on above: Patient Question Start: 04-28-2022 Telephone encounter Komal oChn DO Work Phone: [facility] Comment on above: Patient Update Start: 04-27-2022 Telephone encounter Komal Cohn DO Work Phone: [facility] Comment on above: Patient Update; Orde rs Start: 04-14-2022 Telephone encounter Komal Cohn DO Work Phone: [facility] Comment on above: Orders (Increase las ix x 1 wk, bmp in one wk/) Start: 04-13-2022 Refill Komal calderon Lalit DO Work Phone: [facility] [place] Comment on above: Refill Request Start: 02-21-2022 Refill Komal calderon Lalit DO Work Phone: [facility] Comment on above: Refill Request Start: 02-19-2022 Telephone encounter Komal Mcbriderio DO Work Phone: [facility] Comment on above: Home Care Start: 01-19-2022 Telephone encounter Komal Mcbriderio DO Work Phone: [facility] Comment on above: Patient Update Start: 01-05-2022 Telephone encounter Komal Mcbriderio DO Work Phone: [facility] Comment on above: Results Start: 01-01-2022 Telephone encounter Komal Mcbriderio DO Work Phone: [facility] Comment on above: Results; Orders Start: 12-24-2021 Refill Komal calderon Lalit DO Work Phone: [facility] [place] Comment on above: Refill Request Start: 12-23-2021 Telephone encounter Komal Mcbriderio DO Work Phone: [facility] [place] Comment on above: Medication Problem Start: 12-15-2021 Refill Komalasia calderon Lalit DO Work Phone: [facility] [place] Comment on above: Refill Request Start: 12-13-2021 End: 12-22-2021 Evaluation and management of inpatient J Azra Tejeda MD Work Phone: [facility] [employer] Comment on above: Altered mental statu s, unspecified altered mental status type (Primary Dx); Urinary tract infection without hematuria, site unspecified; Acute cystitis without hematuria Start: 11-30-2021 End: 11-30-2021 Patient encounter procedure Komal Cohn DO Work Phone: [facility] [place] Comment on above: Primary hypertension (Primary Dx); Mixed hyperlipidemia; Statin intolerance; Myalgias Start: 11-20-2021 Refill Koamlasia Cohn DO Work Phone: [facility] Comment on above: Refill Request Start: 09-04-2021 Refill [place] Cohn DO Work Phone: [facility] [place] Comment on above: Refill Request; Refi ll Request Start: 09-04-2021 Telephone encounter [place] Jg Cohn DO Work Phone: [facility] [place] Comment on above: Consult (Cardiology) Start: 09-03-2021 End: 09-03-2021 Patient encounter procedure Komal Cohn DO Work Phone: [facility] [place] Comment on above: Type 2 diabetes luz itus without complication, without long- term current use of insulin (HCC) (Primary Dx); Congestive heart failure, unspecified HF chronicity, unspecified heart failure type (HCC); Hyperlipidemia, mixed; Primary hypertension; Hypothyroidism, acquired Start: 07-28-2021 Refill Komalasia Cohn DO Work Phone: [facility] Comment on above: Refill Request; Refi ll Request Start: 07-18-2021 Refill [place] Cohn DO Work Phone: [facility] Comment on above: Refill Request; Refi ll Request Start: 05-28-2021 End: 05-28-2021 Patient encounter procedure Komalasia Cohn DO Work Phone: [facility] [place] Comment on above: Primary hypertension (Primary Dx); Hyperlipidemia, mixed; Type 2 diabetes mellitus without complication, without long-term current use of insulin (HCC) Start: 03-23-2021 End: 03-23-2021 Refill [place] Cohn DO Work Phone: [facility] Comment on above: Refill Request Start: 02-25-2021 End: 02-25-2021 Refill [place] Cohn DO Work Phone: [facility] [place] Comment on above: Refill Request Start: 02-25-2021 End: 02-25-2021 Patient encounter procedure Komalasia Cohn DO Work Phone: [facility] [place] Comment on above: Primary hypertension (Primary Dx); Type 2 diabetes mellitus without complication, without long-term current use of insulin (HCC); Generalized edema; Hypokalemia Start: 02-21-2021 End: 02-21-2021 Refill [place] Cohn DO Work Phone: [facility] [place] Comment on above: Refill Request Start: 11-26-2020 End: 11-26-2020 Patient encounter procedure [place] Cohn Work Phone: [facility] Comment on above: Essential hypertensi on (Primary Dx); Type 2 diabetes mellitus without complication, without long-term current use of insulin (HCC); Seasonal allergies Start: 11-24-2020 End: 11-24-2020 Refill [place] Cohn Work Phone: [facility] Comment on above: Refill Request Start: 11-05-2020 End: 11-05-2020 Refill Komalasia Cohn Work Phone: [facility] Comment on above: Refill Request Start: 09-24-2020 End: 09-24-2020 Refill Komal Cohn Work Phone: [facility] [place] Comment on above: Refill Request Start: 09-23-2020 End: 09-23-2020 Refill Komal Cohn Work Phone: [facility] [place] Comment on above: Refill Request Start: 09-23-2020 End: 09-23-2020 Telephone encounter Komal Cohn Work Phone: [facility] Comment on above: Results Start: 09-17-2020 End: 09-17-2020 Patient encounter procedure External Provider [facility] Start: 09-17-2020 Results Only External Provider Exter nal-NonCCF Start: 09-03-2020 End: 09-03-2020 Telephone encounter Komal Cohn Work Phone: [facility] Comment on above: Orders (PTH) Patient Question (or emmanuel for edilson chow) Start: 08-29-2020 End: 08-29-2020 Refill Komal Cohn Work Phone: [facility] Comment on above: Refill Request Start: 08-29-2020 End: 08-29-2020 Subsequent hospital visit by physician Komal Cohn Work Phone: [facility] Vascular Lab Comment on above: Acute embolism [...] Start: 06-29-2024 Comprehensive metabolic panel Stephanie Acierno SHOVEL ENGINEER - INDUSTRIAL ENGINEERING MANAGER Work Phone: Start: 06-29-2024 Manual Differential panel - Blood Stephanie Georgeierno SHOVEL ENGINEER - INDUSTRIAL ENGINEERING MANAGER Work Phone: Start: 06-28-2024 End: 06-28-2024 Blood count hematocrit Masroor Stringer M D Work Phone: Start: 06-28-2024 Blood count hematocrit Fadia Stringer MD Work Phone: Start: 06-28-2024 Blood count hematocrit Fadia Stringer MD Work Phone: Start: 06-28-2024 Glucose quantitative blood xcpt reagent strip Fadia Stringer MD Work Phone: Start: 06-28-2024 Comprehensive metabolic panel Stephanie Acierno SHOVEL ENGINEER - INDUSTRIAL ENGINEERING MANAGER Work Phone: Start: 06-28-2024 Manual Differential panel - Blood Stephanie Acierno SHOVEL ENGINEER - INDUSTRIAL ENGINEERING MANAGER Work Phone: Start: 06-27-2024 End: 06-27-2024 Blood [...] Start: 06-27-2024 Comprehensive metabolic panel Stephanie Acierno SHOVEL ENGINEER - INDUSTRIAL ENGINEERING MANAGER Work Phone: Start: 06-27-2024 Manual Differential panel - Blood Stephanie Acjhonathanno SHOVEL ENGINEER - INDUSTRIAL ENGINEERING MANAGER Work Phone: Start: 06-27-2024 Blood count hematocrit Fadia Stringer MD Work Phone: Start: 06-27-2024 Glucose quantitative blood xcpt reagent strip Fadia Stringer MD Work Phone: Start: 06-26-2024 Compatibility each u nit electronic Donna Del Angel SHOVEL ENGINEER - INDUSTRIAL ENGINEERING MANAGER Work Phone: Start: 06-26-2024 End: 06-27-2024 TRANSFUSE RED BLOOD CELLS Donna simons SHOVEL ENGINEER - INDUSTRIAL ENGINEERING MANAGER Work Phone: Start: 06-26-2024 End: 06-26-2024 Blood count hematocrit Fadia Calderon Work Phone: Start: 06-26-2024 Electroencephalogram Jacuqes Stringer MD Work Phone: Start: 06-26-2024 End: [...] on above: Performed By: #### L [id number] ####Electromedical Equipment Technician: RUTH ANN PEOPLES ([id number])[facility] ([facility])[address] Start: 06-26-2024 Antibody screen rbc each [...] olume] in Serum or Plasma Kyung Hogan SHOVEL ENGINEER - INDUSTRIAL ENGINEERING MANAGER Work Phone: Start: 05-30-2024 Assay of troponin [...] artl ld abdl/pel/scrot&/rpr orgn com Le Dobson SHOVEL ENGINEER - INDUSTRIAL ENGINEERING MANAGER Work Phone: Start: 04-18-2024 [facility] compl spec&colr [...] 01-29-2024 End: 01-29-2024 Chloride urine Le Dobson SHOVEL ENGINEER - INDUSTRIAL ENGINEERING MANAGER Work Phone: Start: 01-29-2024 Glucose quantitative blood [...] Phone: Start: 01-06-2024 Hemoglobin A1c/Hemoglobin.total in Blood [facility] DO Work Phone: Start: 12-07-2023 Urnls dip stick/tabl et rgnt auto w/o microscopy [facility] DO Work Phone: Start: 06-27-2023 Culture bacterial qu anttative colony count [facility] Work Phone: Start: 06-27-2023 Urnls dip stick/tabl et rgnt auto w/o microscopy [facility] DO Work Phone: Start: 06-27-2023 Hemoglobin A1c/Hemoglobin.total in Blood [facility] DO Work Phone: Start: 03-07-2023 Dup-scan xtr veins unilateral/limited study [facility] DO Work Phone: Start: 03-07-2023 Urnls dip stick/tabl et rgnt auto w/o microscopy [place] Maryan Cohn DO Work Phone: Start: 12-08-2022 Echo tthrc r-t 2d w/ wom-mode compl spec&colr d Charley Linda Parker [facility] Work Phone: Start: 11-19-2022 Glucose quantitative blood xcpt reagent strip Pola Henderson MD Work Phone: Start: 11-19-2022 Glucose quantitative blood xcpt reagent strip Pola Henderson MD Work Phone: Start: 11-19-2022 Comprehensive metabolic panel Katherine Manda Kinga [facility] Work Phone: Start: 11-19-2022 Manual differential performed [Presence] in Blood Katherineher Manda Donato [facility] Work Phone: Start: 11-18-2022 Glucose quantitative blood xcpt reagent strip Pola Henderson MD Work Phone: Start: 11-18-2022 Glucose quantitative blood xcpt reagent strip Pola Henderson MD Work Phone: Start: 11-18-2022 Glucose quantitative blood xcpt reagent strip Pola Henderson MD Work Phone: Start: 11-18-2022 Basic metabolic pane l calcium total Jessica Katy Paulino [facility] Work Phone: Start: 11-18-2022 SARS-COV-2, FLU [...] olume] in Serum or Plasma Charleyreyna Parker SHOVEL ENGINEER - [facility] Work Phone: Start: 12-22-2021 Gluc bld gluc [...] O2 EVAL ([place] SCREEN) Sue Tripathi SHOVEL ENGINEER [facility] Work Phone: Start: 12-21-2021 Gluc bld [...] Start: 12-20-2021 Drug screen quantita tive vancomycin Su Guy MD Work Phone: Start: 12-20-2021 Gluc [...] DO Work Phone: Start: 09-17-2020 EXTERNAL IMAGING Foam Molder al Provider Start: 08-29-2020 Dup-scan xtr veins [...] Author Start: 07-04-2025 Complete blood count Hemoglobin/Hematocrit [facility] Start: 07-04-2025 Creatinine measurement [facility] Start: 07-04-2025 Diabetes: Estimated Glomerular Filtration Rate for Kidney Health Diabetes: Estimated Glomerular Filtration Rate for [facility] Start: 07-04-2025 Potassium measurement [facility] Start: 07-04-2025 [facility] Start: 06-11-2025 Annual PCP Team Chronic Disease Visit Annual PCP Team Chronic Disease Visit [facility] Start: 06-01-2025 Complete blood count Hemoglobin/Hematocrit [facility] Start: 06-01-2025 Creatinine measurement [facility] Start: 06-01-2025 Potassium measurement Potassium Level [facility] Start: 05-30-2025 Thyroid stimulating hormone measurement TSH Level [facility] Start: 04-27-2025 Annual PCP Team Chronic Disease Visit Annual PCP Team Chronic Disease Visit [facility] Start: 04-18-2025 Echocardiography Echocardiogram [facility] Start: 04-18-2025 [facility] Start: 04-08-2025 Influenza vaccination Influenza Vaccine (Season Ended) [facility] Start: 03-27-2025 End: 03-27-2025 ambulatory [facility] Start: 03-27-2025 End: 03-27-2025 Patient encounter procedure [facility] Start: 03-26-2025 Creatinine measurement [facility] Start: 03-26-2025 Potassium measurement Potassium Level [facility] Start: 03-20-2025 Creatinine measurement Creatinine Level [facility] Start: 03-20-2025 Potassium measurement Potassium Level [facility] Start: 03-16-2025 Annual PCP Team Chronic Disease Visit Annual PCP Team Chronic Disease Visit [facility] Start: 03-16-2025 BP Controlled (<130/80) BP Controlled (<130/80) [facility] Start: 03-06-2025 End: 03-06-2025 Professional / ancillary services management 03/06/2025 3:00 PM EDT Ancillary Procedure [facility] [place] [address] [place] [phone] [facility] [place] Start: 02-26-2025 Annual PCP Team Chronic Disease Visit Annual PCP Team Chronic Disease Visit [facility] Start: 02-01-2025 Complete blood count Hemoglobin/Hematocrit [facility] Start: 02-01-2025 Creatinine measurement [facility] Start: 02-01-2025 Potassium measurement Potassium Level [facility] Start: 01-28-2025 Diabetes: Urine Albumin-Creatinine Ratio for Kidney Health Diabetes: Urine Albumin-Creatinine Ratio for Kidney Health [facility] Start: 01-28-2025 [facility] Start: 01-05-2025 Annual PCP Team Chronic Disease Visit Annual PCP Team Chronic Disease Visit [facility] Start: 01-05-2025 Diabetic foot examination Diabetic Foot Exam [facility] Start: 12-13-2024 Creatinine measurement Serum Creatinine [facility] Start: 12-06-2024 Annual PCP Team Chronic Disease Visit Annual PCP Team Chronic Disease Visit [facility] Start: 12-06-2024 BP Controlled (<130/80) BP Controlled (<130/80) [facility] Start: 11-29-2024 End: 11-29-2024 Professional / ancillary services management 11/29/2024 1:00 PM EDT Ancillary Procedure [facility] - [place] [address] [place] [phone] [facility] [place] Start: 11-16-2024 End: 11-16-2024 Patient encounter procedure 11/16/2024 3:00 PM EDT Office Visit [facility] [place] [address] [place] [phone] Pravin Poole MD [address] [place] [address] [facility] [place] Start: 08-31-2024 End: 08-31-2024 ambulatory [facility] [place] Start: 08-31-2024 End: 08-31-2024 Patient encounter procedure 08/31/2024 1:15 PM EST Office Visit [facility] [place] [address] [place] [phone] Pravin Poole MD [address] [place] [address] [facility] [place] Start: 08-30-2024 End: 08-30-2024 ambulatory [facility] [place] Start: 08-30-2024 End: 08-30-2024 Professional / ancillary services management 08/30/2024 9:00 AM EST Ancillary Procedure [facility] [place] [address] [place] [phone] [facility] [place] Start: 08-08-2024 Medicare Advantage Annual Wellness Visit Medicare Advantage Annual Wellness Visit [facility] Start: 07-29-2024 Hemoglobin A1c measurement HbA1C [facility] Start: 07-20-2024 End: 07-20-2024 Patient encounter procedure 07/20/2024 2:15 PM EST Office Visit [facility] [address] [place] [address] Komal Cohn DO [address] [place] [address] f/u 3 months [facility] Comment on above: f/u 3 months Start: 07-07-2024 Hemoglobin A1c measurement HbA1C [facility] Start: 06-27-2024 Annual PCP Team Chronic Disease Visit Annual PCP Team Chronic Disease Visit [facility] Start: 06-27-2024 BP Controlled (<130/80) BP Controlled (<130/80) [place] Start: 06-20-2024 End: 06-20-2024 Professional / ancillary services management 06/20/2024 1:00 PM EST Ancillary Procedure [facility] [address] [place] [phone] [facility] Start: 06-11-2024 End: 06-11-2024 Patient encounter procedure 06/11/2024 1:00 PM EST Office Visit [facility] [address] [place], [place] [phone] Komal Cohn DO [address] [place], [place] [phone] hosp fu [facility] Comment on above: hosp [facility] Start: 06-01-2024 End: 06-01-2025 Basic metabolic 1998 panel - Serum or Plasma Basic metabolic panel Lab Routine BARRY (acute kidney injury) (HCC) Expected: 06/01/2024 (Approximate), Expires: 06/01/2025 [facility] Work Phone: Comment on above: Expected: 06/01/2024 (Approximate), Expi res: 06/01/2025 Start: 04-27-2024 End: 04-27-2024 Patient encounter procedure 04/27/2024 4:15 PM EDT Office Visit [facility] [address] [place], [place] [phone] Komal Cohn DO [address] [place] [phone] 3 mos ck up [facility] Comment on above: 3 mos ck up Start: 04-25-2024 End: 04-25-2024 Patient encounter procedure [facility] Start: 04-18-2024 End: 04-18-2024 Patient encounter procedure 04/18/2024 1:00 PM EDT Appointment [facility] Non-Invasive Cardiology [address] [place] [phone] Jose Joel MD [address] [place] [address] [facility] Non-Invasive Cardiology Start: 04-13-2024 End: 04-13-2024 Patient encounter procedure 04/13/2024 4:00 PM EDT Office Visit [facility] [address] [place] [address] Komal Cohn DO [address] [place] [address] 3 mos ck up [facility] Comment on above: 3 mos ck up Start: 04-08-2024 Covid-19 Vaccine ( season) Covid-19 Vaccine ( season) [facility] Start: 04-08-2024 Covid-19 Vaccine ( season) Covid-19 Vaccine () [facility] Start: 04-08-2024 Influenza vaccination [facility] Start: 04-08-2024 [facility] Start: 04-06-2024 End: 04-06-2024 Patient encounter procedure 04/06/2024 11:00 AM EDT Office Visit [facility] [address] [place] [address] Komal Cohn DO [address] [place] [phone] f/u 3 months [facility] Comment on above: f/u 3 months Start: 04-04-2024 End: 04-04-2024 Patient encounter procedure 04/04/2024 1:00 PM EDT Appointment [facility] Non-Invasive Cardiology [address] [place] [phone] [facility] Non-Invasive Cardiology Start: 03-26-2024 End: 03-21-2025 Basic metabolic 1998 panel - Serum or Plasma Basic metabolic panel Lab Routine Nonrheumatic aortic valve stenosis Acute renal failure superimposed on stage 4 chronic kidney disease, unspecified acute renal failure type (HCC) Expected: 03/26/2024 (Approximate), Expires: 03/21/2025 [employer] Work Phone: Comment on above: Expected: 03/26/2024 (Approximate), Expi res: 03/21/2025 Start: 03-19-2024 End: 03-14-2025 Basic metabolic 1998 panel - Serum or Plasma Basic metabolic panel Lab Routine Coronary artery disease involving coronary bypass graft of [place] heart without angina pectoris Nonrheumatic aortic valve stenosis Expected: 03/19/2024 (Approximate), Expires: 03/14/2025 [employer] Work Phone: Comment on above: Expected: 03/19/2024 (Approximate), Expi res: 03/14/2025 Start: 03-16-2024 End: 03-16-2024 Patient encounter procedure 03/16/2024 3:15 [place] [address] [place] [address] [facility] Comment on above: [facility] Start: 03-14-2024 ANNUAL PCP TEAM CHRONIC DISEASE VISIT ANNUAL PCP TEAM CHRONIC DISEASE VISIT [facility] Start: 03-14-2024 End: 03-14-2026 Heart Transthoracic Transthoracic echocardiogram (TTE) complete with contrast, bubble, strain, and 3D PRN CV Echocardiography Routine Coronary artery disease involving coronary bypass graft of [place] heart without angina pectoris Nonrheumatic aortic valve stenosis Expected: 03/14/2024 (Approximate), Expires: 03/14/2026 [facility] Comment on above: Expected: 03/14/2024 (Approximate), Expi res: 03/14/2026 Start: 03-07-2024 ANNUAL PCP TEAM CHRONIC DISEASE VISIT ANNUAL PCP TEAM CHRONIC DISEASE VISIT [facility] Start: 03-07-2024 End: 03-07-2024 Patient encounter procedure 03/07/2024 10:20 AM EDT Office Visit [facility] [address] [place] [phone] Jose Joel MD [address] [place] [address] [facility] Start: 02-27-2024 End: 02-27-2024 Patient encounter procedure 02/27/2024 3:15 PM EDT Office Visit [facility] [address] [place] [address] Komal Cohn DO [address] [place] [phone] TCM [facility] Comment on above: TCM Start: 01-06-2024 End: 04-06-2024 Basic metabolic 2000 panel - Serum or Plasma BASIC METABOLIC PANEL Lab Routine CKD (chronic kidney disease) stage 4, GFR 15-29 ml/min ([facility]) Expected: 01/06/2024, Expires: 04/06/2024 [facility] Comment on above: Expected: 01/06/2024, Expires: Start: 01-06-2024 End: 01-06-2024 Patient encounter procedure 01/06/2024 1:00 PM EDT Office Visit [facility] [address] [place] [address] Komal Cohn, DO [address] [place] [phone] 4 week f/u [facility] Comment on above: 4 week f/u Start: 12-26-2023 Hemoglobin A1c measurement HbA1C [facility] Start: 12-26-2023 Hemoglobin A1c/Hemoglobin.total in Blood HbA1C [facility] Start: 12-14-2023 ANNUAL PCP TEAM CHRONIC DISEASE VISIT ANNUAL PCP TEAM CHRONIC DISEASE VISIT [facility] Start: 12-14-2023 End: 03-14-2024 Basic metabolic 2000 panel - Serum or Plasma BASIC METABOLIC PANEL Lab Routine Bilateral leg edema Expected: 12/14/2023, Expires: 03/14/2024 [facility] Comment on above: Expected: 12/14/2023, Expires: Start: 12-09-2023 Echocardiography Echocardiogram [facility] Start: 12-03-2023 Complete blood count Hemoglobin/Hematocrit [facility] Start: 12-03-2023 Creatinine measurement Serum Creatinine [facility] Start: 12-03-2023 HEMOGLOBIN/HEMATOCRIT HEMOGLOBIN/HEMATOCRIT [facility] Start: 12-03-2023 SERUM CREATININE SERUM CREATININE [facility] Start: 11-23-2023 ANNUAL PCP TEAM CHRONIC DISEASE VISIT ANNUAL PCP TEAM CHRONIC DISEASE VISIT [facility] Start: 11-23-2023 BP CONTROLLED (<130/80) BP CONTROLLED (<130/80) [facility] in Start: 11-20-2023 Creatinine measurement Creatinine Level [facility] Start: 11-20-2023 Potassium measurement Potassium Level [facility] Start: 08-25-2023 HEMOGLOBIN/HEMATOCRIT HEMOGLOBIN/HEMATOCRIT [facility] Start: 08-25-2023 Hepatitis B surface antibody level LDL CHOLESTEROL [facility] Start: 08-25-2023 SERUM CREATININE SERUM CREATININE [facility] Start: 08-25-2023 Thyroid stimulating hormone measurement TSH Level [facility] Start: 08-16-2023 ANNUAL PCP TEAM CHRONIC DISEASE VISIT ANNUAL PCP TEAM CHRONIC DISEASE VISIT [facility] Start: 08-08-2023 Advance Directive Discussion Advance Directive Discussion [facility] Start: 08-08-2023 Depression Assessment Depression Assessment [facility] Start: 08-08-2023 Medicare [facility] Annual Wellness Visit Medicare [facility] Annual Wellness Visit [facility] Start: 08-08-2023 [facility] Start: 06-29-2023 End: 09-28-2023 Bacteria identified in Urine by Culture URINE CULTURE Microbiology Routine Recurrent UTI (urinary tract infection) Expected: 06/29/2023, Expires: 09/28/[address] [facility] Work Phone: Comment on above: Expected: 06/29/2023, Expires: Start: 06-27-2023 End: 09-26-2023 Bacteria identified in Urine by Culture URINE CULTURE Microbiology Routine Recurrent UTI (urinary tract infection) Expected: 06/27/2023, Expires: 09/26/[address] [facility] Work Phone: Comment on above: Expected: 06/27/2023, Expires: Start: 05-24-2023 Hemoglobin A1c/Hemoglobin.total in Blood HBA1C [facility] Start: 05-03-2023 ANNUAL PCP TEAM CHRONIC DISEASE VISIT ANNUAL PCP TEAM CHRONIC DISEASE VISIT [facility] Start: 05-03-2023 BP CONTROLLED (<130/80) BP CONTROLLED (<130/80) [place] Start: 04-08-2023 Covid-19 Vaccine () Covid-19 Vaccine () [facility] Start: 04-08-2023 Influenza vaccination [facility] Start: 03-30-2023 End: 03-30-2023 Patient encounter procedure [facility] Start: 03-22-2023 Glaucoma screening Diabetes: Retinopathy Screening [facility] Start: 01-18-2023 ANNUAL PCP TEAM CHRONIC DISEASE VISIT ANNUAL PCP TEAM CHRONIC DISEASE VISIT [facility] Start: 01-18-2023 BP CONTROLLED (<130/80) BP CONTROLLED (<130/80) [place] Start: 12-28-2022 Lipid panel Lipid screen [place], [place] Start: 12-28-2022 Lipid screen Lipid screen [facility] Work Phone: Start: 12-18-2022 Creatinine measurement Creatinine Level [facility] Start: 12-18-2022 Potassium measurement Potassium Level [facility] Start: 12-08-2022 End: 12-08-2022 Patient encounter procedure [facility] [employer] Start: 11-30-2022 ANNUAL PCP TEAM CHRONIC DISEASE VISIT ANNUAL PCP TEAM CHRONIC DISEASE VISIT [facility] Start: 10-31-2022 Hemoglobin A1c/Hemoglobin.total in Blood HBA1C [facility] Start: 09-30-2022 End: 09-30-2024 US Heart Transthoracic Transthoracic echocardiogram (TTE) complete with contrast, bubble, strain, and 3D PRN CV Echocardiography Routine Nonrheumatic aortic valve stenosis Expected: 09/30/2022 (Approximate), Expires: 09/30/2024 [facility] Work Phone: Comment on above: Expected: 09/30/2022 (Approximate), Expi res: 09/30/2024 Start: 09-21-2022 Glaucoma screening Diabetes: Retinopathy Screening [facility] Start: 09-16-2022 Hepatitis B surface antibody level LDL CHOLESTEROL [facility] Start: 09-03-2022 Adult depression screening assessment DEPRESSION SCREENING [facility] Start: 09-03-2022 ANNUAL PCP TEAM CHRONIC DISEASE VISIT ANNUAL PCP TEAM CHRONIC DISEASE VISIT [facility] Start: 08-16-2022 End: 10-16-2022 CBC W Auto Differential panel - Blood CBC + DIFF Lab Routine Hyperlipidemia, mixed Expected: 08/16/2022, Expires: 10/16/[address] [facility] Work Phone: Comment on above: Expected: 08/16/2022, Expires: 3 Start: 08-16-2022 End: 10-16-2022 Comprehensive metabolic 2000 panel - Serum or Plasma COMP METABOLIC PANEL Lab Routine Hyperlipidemia, mixed Expected: 08/16/2022, Expires: 10/16/[address] [facility] Work Phone: Comment on above: Expected: 08/16/2022, Expires: 3 Start: 08-16-2022 End: 10-16-2022 Lipid 1996 panel - Serum or Plasma LIPID PANEL BASIC Lab Routine Hyperlipidemia, mixed Expected: 08/16/2022, Expires: 10/16/[address] [facility] Work Phone: Comment on above: Expected: 08/16/2022, Expires: 3 Start: 08-16-2022 End: 10-16-2022 Thyrotropin [Units/volume] in Serum or Plasma TSH BLD Lab Routine Hypothyroidism, acquired Expected: 08/16/2022, Expires: 10/16/[address] [facility] Work Phone: Comment on above: Expected: 08/16/2022, Expires: 3 Start: 08-16-2022 End: 10-16-2022 Urinalysis complete panel - Urine URINALYSIS, WITH MICROSCOPIC Lab Routine Hyperlipidemia, mixed Expected: 08/16/2022, Expires: 10/16/[address] [facility] Work Phone: Comment on above: Expected: 08/16/2022, Expires: 3 Start: 08-08-2022 ADVANCE DIRECTIVE DISCUSSION ADVANCE DIRECTIVE DISCUSSION [facility] Start: 08-08-2022 DEPRESSION ASSESSMENT DEPRESSION ASSESSMENT [facility] Start: 08-03-2022 End: 10-03-2022 ALBUMIN/CREAT RATIO RND UR ALBUMIN/CREAT RATIO RND UR Lab Routine Diabetes ([facility]) Expected: 08/03/2022, Expires: 10/03/[address] [facility] Work Phone: Comment on above: Expected: 08/03/2022, Expires: 3 Start: 08-03-2022 End: 10-03-2022 CBC panel - Blood by Automated count CBC Lab Routine Diabetes ([facility]) Expected: 08/03/2022, Expires: 10/03/[address] [facility] Work Phone: Comment on above: Expected: 08/03/2022, Expires: 3 Start: 08-03-2022 End: 10-03-2022 SCHEDULE LAB TESTING SCHEDULE LAB TESTING Lab Routine Expected: 08/03/2022, Expires: 10/03/[address] [facility] Work Phone: Comment on above: Expected: 08/03/2022, Expires: 3 Start: 08-03-2022 End: 10-03-2022 Thyrotropin [Units/volume] in Serum or Plasma TSH BLD Lab Routine Hypothyroidism, acquired Expected: 08/03/2022, Expires: 10/03/[address] [facility] Work Phone: Comment on above: Expected: 08/03/2022, Expires: 3 Start: 05-28-2022 ANNUAL PCP TEAM CHRONIC DISEASE VISIT ANNUAL PCP TEAM CHRONIC DISEASE VISIT [facility] Start: 05-11-2022 End: 07-11-2022 Basic metabolic 2000 panel - Serum or Plasma BASIC METABOLIC PNL Lab Routine CKD (chronic kidney disease) stage 1, GFR 90 ml/min or greater Expected: 05/11/2022, Expires: 07/11/[address] [facility] Work Phone: Comment on above: Expected: 05/11/2022, Expires: 2 Start: 04-26-2022 End: 06-26-2022 Basic metabolic 2000 panel - Serum or Plasma BASIC METABOLIC PNL Lab Routine Hypokalemia Expected: 04/26/2022, Expires: 06/26/[address] [facility] Work Phone: Comment on above: Expected: 04/26/2022, Expires: 2 Start: 04-08-2022 Influenza vaccination [facility] Start: 03-16-2022 Hemoglobin A1c/Hemoglobin.total in Blood HBA1C [facility] Start: 02-25-2022 ANNUAL PCP TEAM CHRONIC DISEASE VISIT ANNUAL PCP TEAM CHRONIC DISEASE VISIT [facility] Start: 01-01-2022 End: 03-03-2022 CBC W Auto Differential panel - Blood CBC + DIFF Lab Routine Anemia, unspecified type Expected: 01/01/2022, Expires: 03/03/[address] [facility] Work Phone: Comment on above: Expected: 01/01/2022, Expires: 2 Start: 01-01-2022 End: 03-03-2022 Cobalamin (Vitamin B12) [Mass/volume] in Serum or Plasma VITAMIN B12 BLOOD Lab Routine Anemia, unspecified type Expected: 01/01/2022, Expires: 03/03/[address] [facility] Work Phone: Comment on above: Expected: 01/01/2022, Expires: 2 Start: 01-01-2022 End: 03-03-2022 Ferritin [Mass/volume] in Serum or Plasma FERRITIN BLD Lab Routine Anemia, unspecified type Expected: 01/01/2022, Expires: 03/03/[address] [facility] Work Phone: Comment on above: Expected: 01/01/2022, Expires: 2 Start: 01-01-2022 End: 03-03-2022 Folate [Mass/volume] in Serum or Plasma FOLATE SERUM Lab Routine Anemia, unspecified type Expected: 01/01/2022, Expires: 03/03/[address] [facility] Work Phone: Comment on above: Expected: 01/01/2022, Expires: 2 Start: 01-01-2022 End: 03-03-2022 Iron and Iron binding capacity panel - Serum or Plasma IRON + TIBC Lab Routine Anemia, unspecified type Expected: 01/01/2022, Expires: 03/03/[address] [facility] Work Phone: Comment on above: Expected: 01/01/2022, Expires: 2 Start: 01-01-2022 End: 03-03-2022 RETIC COUNT RETIC COUNT Lab Routine Anemia, unspecified type Expected: 01/01/2022, Expires: 03/03/[address] [facility] Work Phone: Comment on above: Expected: 01/01/2022, Expires: 2 Start: 12-29-2021 End: 12-22-2022 CBC panel - Blood by Automated count CBC Lab Routine Acute cystitis without hematuria Expected: 12/29/2021, Expires: 12/22/2022 [facility] Work Phone: Comment on above: Expected: 12/29/2021, Expires: 3 Start: 12-29-2021 End: 12-22-2022 Comprehensive metabolic 2000 panel - Serum or Plasma Comprehensive Metabolic Panel Lab Routine Altered mental status, unspecified altered mental status type Expected: 12/29/2021, Expires: 12/22/2022 [facility] Work Phone: Comment on above: Expected: 12/29/2021, Expires: 3 Start: 11-26-2021 ANNUAL PCP TEAM CHRONIC DISEASE VISIT ANNUAL PCP TEAM CHRONIC DISEASE VISIT [facility] Start: 09-03-2021 End: 09-03-2022 CBC W Auto Differential panel - Blood CBC + DIFF Lab Routine Hyperlipidemia, mixed Expected: 09/03/2021, Expires: 09/03/[address] [facility] Work Phone: Comment on above: Expected: 09/03/2021, Expires: 3 Start: 09-03-2021 End: 09-03-2022 Comprehensive metabolic 2000 panel - Serum or Plasma COMP METABOLIC PANEL Lab Routine Hyperlipidemia, mixed Expected: 09/03/2021, Expires: 09/03/[address] [facility] Work Phone: Comment on above: Expected: 09/03/2021, Expires: 3 Start: 09-03-2021 End: 09-03-2022 Hemoglobin A1c/Hemoglobin.total in Blood HGB A1C Lab Routine Type 2 diabetes mellitus without complication, without long-term current use of insulin (HCC) Expected: 09/03/2021, Expires: 09/03/[address] [facility] Work Phone: Comment on above: Expected: 09/03/2021, Expires: 3 Start: 09-03-2021 End: 09-03-2022 LIPID PANEL BASIC LIPID PANEL BASIC Lab Routine Hyperlipidemia, mixed Expected: 09/03/2021, Expires: 09/03/[address] [facility] Work Phone: Comment on above: Expected: 09/03/2021, Expires: 3 Start: 09-03-2021 End: 09-03-2022 Thyrotropin [Units/volume] in Serum or Plasma TSH BLD Lab Routine Hypothyroidism, acquired Expected: 09/03/2021, Expires: 09/03/[address] [facility] Work Phone: Comment on above: Expected: 09/03/2021, Expires: 3 Start: 08-29-2021 Hepatitis B surface antibody level LDL CHOLESTEROL [facility] Start: 08-28-2021 Adult depression screening assessment DEPRESSION SCREENING [facility] Start: 08-28-2021 ANNUAL PCP TEAM CHRONIC DISEASE VISIT ANNUAL PCP TEAM CHRONIC DISEASE VISIT [facility] Start: 08-08-2021 ADVANCE DIRECTIVE DISCUSSION ADVANCE DIRECTIVE DISCUSSION [facility] Start: 08-08-2021 DEPRESSION ASSESSMENT DEPRESSION ASSESSMENT [facility] Start: 06-10-2021 COVID-19 Vaccine (2 - Booster for Moderna series) COVID-19 Vaccine (2 - Booster for Moderna series) [facility] Start: 06-10-2021 COVID-19 VACCINE (2 - Moderna series) COVID-19 VACCINE (2 - Moderna series) [facility] Start: 05-28-2021 Hemoglobin A1c/Hemoglobin.total in Blood HBA1C [facility] Start: 05-13-2021 COVID-19 VACCINE (2 - Moderna 3-dose series) COVID-19 VACCINE (2 - Moderna 3-dose series) [facility] Start: 05-13-2021 COVID-19 VACCINE (2 - Moderna series) COVID-19 VACCINE (2 - Moderna series) [facility] Start: 04-08-2021 Influenza vaccination [facility] Start: 2020 RSV Immunization for Adults (1 - 1-dose 75+ series) RSV Immunization for Adults (1 - 1-dose 75+ series) [facility] Start: 2020 RSV Vaccine (1 - 1-dose 75+ series) RSV Vaccine (1 - 1-dose 75+ series) [facility] Start: 2020 [facility] Start: 04-08-2020 Influenza vaccination Flu vaccine (#1) [place], [place] Start: 04-08-2019 Influenza vaccination Flu vaccine (#1) [facility] Work Phone: Start: 03-15-2019 Breast cancer screen Breast cancer screen [facility] Work Phone: Start: 01-28-2019 Annual Wellness Visit (AWV) Annual Wellness Visit (AWV) [facility] Work Phone: Start: 12-30-2018 Creatinine measurement Creatinine monitoring [facility] Start: 12-30-2018 Creatinine monitoring Creatinine monitoring [facility] Work Phone: Start: 12-30-2018 Potassium monitoring Potassium monitoring [facility] Work Phone: Start: 02-25-2018 Pneumococcal 65+ years Vaccine (2 - PPSV23 or PCV20) Pneumococcal 65+ years Vaccine (2 - PPSV23 or PCV20) [facility] Start: 02-25-2018 Pneumococcal 65+ years Vaccine (2 of 2 - PPSV23) Pneumococcal 65+ years Vaccine (2 of 2 - PPSV23) [facility] Work Phone: Start: 02-25-2018 Pneumococcal Vaccine: 65+ Years (2 - PPSV23 if available, else PCV20) Pneumococcal Vaccine: 65+ Years (2 - PPSV23 if available, else PCV20) [facility] Start: 02-25-2018 PNEUMOCOCCAL: 65+ (2 - PPSV23 if available, else PCV20) PNEUMOCOCCAL: 65+ (2 - PPSV23 if available, else PCV20) [facility] Start: 02-25-2018 PNEUMOCOCCAL: 65+ (2 - PPSV23 or PCV20) PNEUMOCOCCAL: 65+ (2 - PPSV23 or PCV20) [facility] Start: 09-09-2017 Screening for osteoporosis [facility] Start: 04-22-2017 Pneumococcal Vaccine: 50+ (2 of 2 - PPSV23) Pneumococcal Vaccine: 50+ (2 of 2 - PPSV23) [facility] Start: 04-22-2017 Pneumococcal Vaccine: 50+ Years (2 of 2 - PPSV23) Pneumococcal Vaccine: 50+ Years (2 of 2 - PPSV23) [facility] Start: 04-22-2017 Pneumococcal Vaccine: 65+ (2 - PPSV23 or PCV20) Pneumococcal Vaccine: 65+ (2 - PPSV23 or PCV20) [facility] Start: 04-22-2017 Pneumococcal Vaccine: 65+ (2 of 2 - PPSV23 or PCV20) Pneumococcal Vaccine: 65+ (2 of 2 - PPSV23 or PCV20) [facility] Start: 04-22-2017 Pneumococcal Vaccine: 65+ Years (2 - PPSV23 if available, else PCV20) Pneumococcal Vaccine: 65+ Years (2 - PPSV23 if available, else PCV20) [facility] Start: 04-22-2017 Pneumococcal Vaccine: 65+ Years (2 - PPSV23 or PCV20) Pneumococcal Vaccine: 65+ Years (2 - PPSV23 or PCV20) [facility] Start: 04-22-2017 Pneumococcal Vaccine: 65+ Years (2 of 2 - PPSV23 or PCV20) Pneumococcal Vaccine: 65+ Years (2 of 2 - PPSV23 or PCV20) [facility] Start: 04-22-2017 PNEUMOCOCCAL: 65+ (2 - PPSV23 if available, else PCV20) PNEUMOCOCCAL: 65+ (2 - PPSV23 if available, else PCV20) [facility] Start: 04-22-2017 PNEUMOCOCCAL: 65+ (2 - PPSV23 or PCV20) PNEUMOCOCCAL: 65+ (2 - PPSV23 or PCV20) [facility] Start: 04-22-2017 [facility] Start: 2010 ADVANCE DIRECTIVE DISCUSSION ADVANCE DIRECTIVE DISCUSSION [facility] Start: 2010 BONE DENSITY BONE DENSITY [facility] Start: 2010 Bone Density Screening Bone Density Screening [facility] Start: 2010 PNEUMOVAX AGE 65 AND OVER WITH 5YR LOOKBACK (#1) PNEUMOVAX AGE 65 AND OVER WITH 5YR LOOKBACK (#1) [facility] Start: 2010 Screening for osteoporosis Bone Density Screening [facility] Start: 2005 Hepatitis B Vaccine (1 of 3 - Risk 3-dose series) Hepatitis B Vaccine (1 of 3 - Risk 3-dose series) [facility] Start: 2005 Hepatitis B Vaccines (1 of 3 - Risk 3-dose series) Hepatitis B Vaccines (1 of 3 - Risk 3-dose series) [facility] Start: 2005 RSV Immunization aged 60 or older (1 - 1-dose 60+ series) RSV Immunization aged 60 or older (1 - 1-dose 60+ series) [facility] Start: 2005 RSV Vaccine (1 - 1-dose 60+ series) RSV Vaccine (1 - 1-dose 60+ series) [facility] Start: 2005 [facility] Start: 1995 Colon cancer screen colonoscopy Colon cancer screen colonoscopy [facility] Work Phone: Start: 1995 Screening for malignant neoplasm of colon [facility] Start: 1995 Shingles Vaccine (1 of 2) Shingles Vaccine (1 of 2) [facility] Start: 1995 SHINGRIX VACCINE (1 of 2) SHINGRIX VACCINE (1 of 2) [facility] Start: 1995 Zoster Vaccines (1 of 2) Zoster Vaccines (1 of 2) [facility] Start: 1995 [facility] Start: 1990 COLOGUARD (FIT-DNA) COLOGUARD (FIT-DNA) [facility] Start: 1990 Colonoscopy COLONOSCOPY [facility] Start: 1990 COLORECTAL CANCER SCREENING COLORECTAL CANCER SCREENING [facility] Start: [address] COLONOGRAPHY [facility] Start: 1990 FECAL OCCULT BLOOD FECAL OCCULT BLOOD [facility] Start: 1990 SIGMOIDOSCOPY SIGMOIDOSCOPY [facility] Start: 1964 DTaP/Tdap/Td vaccine (1 - Tdap) DTaP/Tdap/Td vaccine (1 - Tdap) [facility] Start: 1964 DTaP/Tdap/Td Vaccines (1 - Tdap) DTaP/Tdap/Td Vaccines (1 - Tdap) [facility] Start: 1964 Hepatitis A Vaccines (1 of 2 - Risk 2-dose series) Hepatitis A Vaccines (1 of 2 - Risk 2-dose series) [facility] Start: 1964 Urine microalbumin profile [facility] Start: 1964 Urine screening for protein Diabetes: Urine Protein Screening [facility] Start: 1964 [facility] Start: 1963 ANNUAL PCP TEAM CHRONIC DISEASE VISIT ANNUAL PCP TEAM CHRONIC DISEASE VISIT [facility] Start: 1963 Anxiety Screening Anxiety Screening [facility] Start: 1963 BP CONTROLLED (<130/80) BP CONTROLLED (<130/80) [place] Start: 1963 HEPATITIS C SCREENING HEPATITIS C SCREENING [facility] Start: 1963 Hepatitis C screening [facility] Start: 1957 COVID-19 VACCINE (1) COVID-19 VACCINE (1) [facility] Start: 1957 Depression Monitoring Depression Monitoring [facility] Start: 1957 Depression Screen Depression Screen [facility] Start: 1957 Depression Screening Depression Screening [facility] Start: 1957 [facility] Start: 1956 DTaP/Tdap/Td vaccine (1 - Tdap) DTaP/Tdap/Td vaccine (1 - Tdap) [facility] Work Phone: Start: 1955 [object Object] DIABETIC FOOT EXAM [facility] Start: 1955 Diabetic foot examination [facility] Start: 1955 Glaucoma screening Dilated Retinal Exam [facility] Start: 1955 Hepatitis B screening URINE ALBUMIN:CREATININE RATIO [facility] Start: 1955 Hepatitis C antibody, confirmatory test DILATED RETINAL EXAM [facility] Start: 1955 Preventive dental service Diabetes: Dental Exam [facility] Start: 1951 PNEUMOCOCCAL: 65+ (1 - PCV) PNEUMOCOCCAL: 65+ (1 - PCV) [facility] Start: 1950 COVID-19 Vaccine (1) COVID-19 Vaccine (1) [facility] Start: 1950 HbA1c (Bld) [Mass fraction] HBA1C [facility] Start: 1946 Hepatitis A Vaccines (1 of 2 - Risk 2-dose series) Hepatitis A Vaccines (1 of 2 - Risk 2-dose series) [facility] Start: 1945 Annual Wellness Visit (AWV) Annual Wellness Visit (AWV) [facility] Start: 1945 Echocardiography Echocardiogram [facility] Start: 1945 Hemoglobin A1c measurement Diabetes: Hemoglobin A1C [facility] Start: 1945 Hepatitis B Vaccines (1 of 3 - 3-dose series) Hepatitis B Vaccines (1 of 3 - 3-dose series) [facility] Start: 1945 Hepatitis C screen Hepatitis C screen [facility] Work Phone: Start: 1945 Hepatitis C screening Hepatitis C screen [place], [place] Start: 1945 Lipid panel Lipid Panel [facility] Start: 1945 Medicare Advantage Annual Wellness Visit (AWV) Medicare Advantage Annual Wellness Visit (AWV) [facility] Start: 1945 Screening for osteoporosis Bone Density Scan [facility] Bacteria identified in Blood by Culture [facility] Bacteria identified in Urine by Culture Urine culture Microbiology STAT 11/17/2022 9:35 PM EDT [facility] Work Phone: Comprehensive Metabo lic Panel w/ Reflex to MG Comprehensive Metabolic Panel w/ Reflex to MG Lab Routine Daily until discontinued starting 12/14/2021, 8 completed [facility] Work Phone: Comment on above: Daily until discontinued starting 2021, 8 completed Glucose [Mass/volume ] in Serum or Plasma [facility] Work Phone: Comment on above: As Needed until discontinued starting 05 /03/2022 4X Daily (AC & HS) u ntil discontinued starting 12/13/2021 End: 06-26-2024 Hemoglobin [Mass/volume] in Blood [facility] Work Phone: Hemoglobin A1c/Hemoglobin.total in Blood HEMOGLOBIN A1C (POC) Lab Routine Type 2 diabetes mellitus with stage 3 chronic kidney disease, without long-term current use of insulin, unspecified whether stage 3a or 3b CKD (HCC) Ordered: 06/27/[address] [facility] Work Phone: Comment on above: Ordered: 06/27/2023 Hemoglobin A1c/Hemoglobin.total in Blood HEMOGLOBIN A1C (POC) Lab Routine Type 2 diabetes mellitus with stage 3 chronic kidney disease, without long-term current use of insulin, unspecified whether stage 3a or 3b CKD (HCC) Ordered: 01/06/[address] [facility] Work Phone: Comment on above: Ordered: 01/06/2024 Oxygen therapy [[facility] Data Set] Initiate Oxygen Therapy Protocol Respiratory Care Routine As Needed until discontinued starting 12/13/2021 [facility] Work Phone: Comment on above: As Needed until discontinued starting UA DIP, URINE (POC) UA DIP, URIN E (POC) Lab Routine Urinary frequency Ordered: 03/07/[address] [facility] Work Phone: Comment on above: Ordered: 03/07/2023 UA DIP, URINE (POC) UA DIP, URIN E (POC) Lab Routine Recurrent UTI (urinary tract infection) Ordered: 06/27/[address] [facility] Work Phone: Comment on above: Ordered: 06/27/2023 UA DIP, URINE (POC) UA DIP, URIN E (POC) Lab Routine Dysuria Ordered: 12/07/[address] [facility] Work Phone: Comment on above: Ordered: 12/07/2023 End: 09-03-2022 Urinalysis complete panel - Urine URINALYSIS, WITH MICROSCOPIC Lab Routine Hyperlipidemia, mixed 1 Occurrences starting 09/03/2021 until 09/03/[address] [facility] Work Phone: Comment on above: 1 Occurrences starting 09/03/2021 until 09/03/2022 End: 04-05-2024 US DVT LOWER RIGHT US DVT LOWER RIGHT Radiology STAT Right leg swelling 1 Occurrences starting 03/07/2023 until 04/05/[address] [facility] Work Phone: Comment on above: 1 Occurrences starting 03/07/2023 until 04/05/2024 End: 02-04-2025 US Kidney - bilateral and Urinary bladder US KIDNEY/BLADDER Radiology Routine CKD (chronic kidney disease) stage 4, GFR 15-29 ml/min ([facility]) 1 Occurrences starting 01/06/2024 until 02/04/2025 [facility] Comment on above: 1 Occurrences starting 01/06/2024 until 02/04/2025 End: 06-02-2023 US KIDNEY/BLADDER US KIDNEY/BLADDER Radiology Routine BARRY (acute kidney injury) ([facility]) 1 Occurrences starting 05/03/2022 until 06/02/[address] [facility] Work Phone: Comment on above: 1 Occurrences starting 05/03/2022 until 06/02/2023 End: 01-26-2024 [facility] Work Phone: Comment on above: Once for 1 Occurrences starting 01/26/20 until 01/26/2024 End: 04-25-2024 [facility] Work Phone: Comment on above: Once for 1 Occurrences starting 04/25/20 until 04/25/2024 End: 12-22-2021 Vancomycin Level, Trough Vancomycin Level, Trough Lab Timed One Time for 1 Occurrences starting 12/22/2021 until 12/22/2021 [facility] Work Phone: Comment on above: One Time for 1 Occurrences starting 12/06 until 12/22/2021 [facility] Immunizations Immunization Date Immunization Notes Care Provider Fa tramaine 06-26-2024 influenza vaccine A& B surf ant adjuvanted (Fluad) HIGH-DOSE injection 0.5 mL Kaiden David MD Work Phone: [facility] 04-15-2021 COVID-19 original vaccine, full dose, monovalent (MODERNA) Komal Lalit DO Work Phone: [facility] 04-07-2020 influenza nasal, unspecified formulation [place] Lalit DO Work Phone: [facility] 04-07-2020 unknown vaccine or immune globulin [place] Lalit DO Work Phone: [facility] 04-07-2020 influenza virus vaccine, unspecified formulation Ajit Nesheim DO Work Phone: [facility] 06-27-2019 influenza virus vaccine, unspecified formulation Komal Lalit DO Work Phone: [facility] 06-25-2019 influenza, injectabl e, quadrivalent, contains preservative [place] Lalit DO Work Phone: [facility] 05-12-2018 influenza, high dose seasonal, preservative-free [place] Lalit DO Work Phone: [facility] 05-27-2017 influenza, high dose seasonal, preservative-free [place] Lalit DO Work Phone: [facility] 03-28-2017 influenza, high dose seasonal, preservative-free [place] Llait DO Work Phone: [facility] 02-25-2017 pneumococcal conjuga te vaccine, 13 valent Komal Lalit DO Work Phone: [facility] Work Phone: 04-08-2016 influenza, high dose seasonal, preservative-free [place] Lalit DO Work Phone: [facility] 04-08-2016 pneumococcal conjuga te vaccine, 13 valent [place] Lalit DO Work Phone: [facility] Payers Date Payer Category Payer Medicare [id number] 2024 Self-pay 2023 Medicare HMO [id number] 2022 Medicaid [id number] 2022 Medicaid [id number] 2022 Commercial Managed C are - HMO [id number] 2022 Medicare [id number] 2022 Unknown [id number] 2020 Unknown [employer] M [employer] [address] [id number] 2020-Present [address] [place] [address] [id number] 2019 Unknown [id number] 2019 Unknown [id number] 2017 Medicare MEDICARE MEDICAR E PART A AND B [id number] 2017-Present [phone] [place] [address] [id number] 2017 Medicare MEDICARE MEDICAR E PART A AND B [id number] 2017-Present [phone] [place] [address] xxxxxxxxxx [id number] 2017 Medicare [id number] .[id number] 2010 Medicare [id number] .[id number] 2010 Medicare [id number]. 1.13.159.2 .[id number] Unknown [id number] 2.16.840.1.832124.3.579.2 .462 Unknown [id number] 2.16.840.1.757143.3.579.2 .462 Unknown [id number] 2.16.840.1.058748.3.579.2 .462 Unknown [id number] 2.16.840.1.111203.3.579.2 .462 Unknown [id number] 2.16.840.1.821467.3.579.2 .462 Unknown [id number] 2.16840.1.761595.3.579.2 .462 Unknown [id number] 2.16840.1.932782.3.579.2 .462 Unknown [id number] 2.16840.1.863807.3.579.2 .462 Unknown [id number] 2.16.840.1.095683.3.579.2 .462 Unknown [id number] 2.16.840.1.290454.3.579.2 .462 Unknown [id number] 2.16840.1.571458.3.579.2 .462 Unknown [id number] 2.16.840.1.620608.3.579.2 .462 Unknown [id number] 2.16.840.1.934539.3.579.2 .462 Unknown [id number] 2.16.840.1.949489.3.579.2 .462 Unknown [id number] 2.16.840.1.439222.3.579.2 .462 Unknown [id number] [id number] .462 Social History Date Type Detail Facility Start: 08-28-2020 End: 11-22-2022 Tobacco smoking status NHIS Former smoker [facility] Start: 08-28-2020 End: 11-22-2022 Tobacco use and exposure Never used [facility] Start: 08-28-2020 End: 06-25-2024 Alcohol intake Current non-drinker of alcohol (finding) [facility] Work Phone: Start: 1945 Sex Assigned At Not on file [facility] [employer] Work Phone: Start: 08-17-2021 End: 03-30-2023 Exposure to SARS-CoV-2 (event) Not sure [facility] Start: 12-26-2017 End: 08-25-2019 Tobacco smoking status NHIS Never smoker [facility] Work Phone: Start: 12-13-2021 History SDOH Alcohol Frequency 1 [facility] [employer]Touch Phone: History of tobacco use Current smoker [facility] Start: 12-13-2022 End: 06-25-2024 History of Social function [facility] Start: 12-13-2022 End: 06-25-2024 Tobacco use panel [facility] Adult Depression Screening Assessment 0 [facility] Within the last year , have you been afraid of your partner or ex-partner? No [facility] Are you now , , , , never or living with a partner? [facility] How often to you hav e a drink containing alcohol? Never [facility] How hard is it for y ou to pay for the very basics like food, housing, medical care, and heating Somewhat hard [facility] Do you feel stress - tense, restless, nervous, or anxious, or unable to sleep at night because your mind is troubled all the time - these days [OSQ] To some extent [facility] (I/We) worried wheth er (my/our) food would run out before (I/we) got money to buy more. Sometimes true [facility] Start: 1945 Sex assigned at Female [facility] Start: 01-28-2024 Gender identity Identifies as female gender (finding) [facility] Start: 01-28-2024 Sexual orientation Heterosexual (martha gregory) [place] [employer] (I/We) worried wheth er (my/our) food would run out before (I/we) got money to buy more. Never true [facility] Start: 03-08-2022 End: 11-27-2024 Sex Female (finding) [facility] In the past 12 month s, how many times have you moved where you were living? In the past 12 months, how many times have you moved where you were living? [facility] Tobacco smoking stat [facility] Unknown if ever smoked [facility] Work Phone: Medical Equipment Procedure Code Equipment Code Equipment Original Text Equipment Identifier Dates [id number], [id number], [id number], [id number] Start: 06-27-2020 End: 06-11-2024 Comment on above: [...] Facility 01-11-2025 History of Present illness Narrative [facility] [address] [address] Dept: [phone] Dept Loc: [phone] Visit type: Established : 1945 Chief Complaint: [...] 05/31/2024 Performed by Pravin Poole MD at [facility] Cardiac Cath/EP Lab CHOLECYSTECTOMY CORONARY ARTERY BYPASS [...] Disp: , Rfl: documented in this encounter [facility] 10-02-2024 Telephone encounter Note PC to [facility], I spoke with Diego MARRERO Reviewed verbal order. Will send to [facility] as well. She verbalized understanding. [facility] 10-02-2024 Miscellaneous Notes PC to [facility], I spoke with Diego MARRERO Reviewed verbal order. Will send to [facility] as well. She verbalized understanding. Called, Jaylena RN was alittle concerned BP past week, she has not been on RX since PM inserted 2/16 -168/70 2/17 -144/68 2/18-158/64 2/19-143/66 2-20-136/68 2/22-148-72 2-23-146/70 HR 70-80 no HF SX , wt stable,no complaints, will inform Dianelys Rajwinder MARRERO from [facility] requesting return call to clarify medications and BP [phone]. May ask for nurse documented in this encounter [facility] 10-01-2024 Telephone encounter Note Diego Paulson RN was alittle concerned BP past week, she has not been on RX since PM inserted 2 -168/70 2/17 -144/68 2/18-158/64 2/-143/66 2-20-136/68 2/-148-72 2-23-146/70 HR 70-80 no HF SX , wt stable,no complaints, will inform Dianelys [facility] 10-01-2024 Telephone encounter Note Rajwinder MARRERO from [facility] requesting return call to clarify medications and BP [phone]. May ask for nurse [facility] 08-03-2024 Note HNO ID: [id number] Author: GOGO BARBOSA RN Service: ? Author Type: Registered Nurse Type: Progress Notes Filed: 08/03/2024 15:49 Note Text: Spoke with Glenda at [facility], patient is now a permanent resident under the care of facility physician, Dr. Adin Elias, JATIN . Dr. Adin Elias, INDUSTRIAL ENGINEERING MANAGER will manage all patient care hereafter (including refilling prescriptions). [facility] chart updated to reflect PCP change. Gogo Barbosa RN [facility] 08-03-2024 History of Present illness Narrative Spoke with Glenda at [facility], patient is now a permanent resident under the care of facility physician, Dr. Adin Elias CNP . Dr. Adin Elias CNP will manage all patient care hereafter (including refilling prescriptions). [facility] chart updated to reflect PCP change. Gogo Barbsoa RN documented in this encounter [facility] 08-03-2024 Note Patient Outreach (AG ACM) MIKEL WINSTON ([id number]) 1945 F Date Time Provider Department 08/03/24 GOGO BARBOSA [facility] During your visit today, we recorded the following information about you: Gogo Barbosa RN 08/03/2024 3:49 PM Signed Spoke with Glenda at [facility], patient is now a permanent resident under the care of facility physician, Dr. Adin Elias CNP . Dr. Adin Elias CNP will manage all patient care hereafter (including refilling prescriptions). [facility] chart updated to reflect PCP change. 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 Author Type: Registered Nurse Type: Progress Notes Filed: 2024 09:36 Note Text: TRANSITION CARE MANAGEMENT (TCM) DISCHARGE TO POST ACUTE FACILITY POST ACUTE TRANSFER SUMMARY: -Pt discharged from [facility] on 07/04/2024. -Post Acute Facility Admitted to [facility] -Admitted for: Altered mental status Office PCC will follow at discharge. Gogo Barbosa RN 2024 [facility] 2024 History of Present illness Narrative TRANSITION CARE MANAGEMENT (TCM) DISCHARGE TO POST ACUTE FACILITY POST ACUTE TRANSFER SUMMARY: -Pt discharged from [facility] on 07/04/2024. -Post Acute Facility Admitted to [facility] -Admitted for: Altered mental status Office PCC will follow at discharge. Gogo Barbosa RN 2024 documented in this encounter [facility] 2024 Note Patient Outreach (AG ACM) MIKEL WINSTON ([id number]) 1945 F Date Time Provider Department 07/13/24 GOGO BARBOSA [facility] During your visit today, we recorded the following information about you: Gogo Barbosa RN 2024 9:36 AM Signed TRANSITION CARE MANAGEMENT (TCM) DISCHARGE TO POST ACUTE FACILITY POST ACUTE TRANSFER SUMMARY: -Pt discharged from [facility] on 07/04/2024. -Post Acute Facility Admitted to [facility] -Admitted for: Altered mental status Office PCC will follow at discharge. Gogo Barbosa RN 2024 Allergies As of Date: 2024 Noted Allergy Reaction CODEINE 02/24/2016 4 - Hives 2 - Rash CODEINE SULFATE 06/13/2018 16 - Unknown Date Reviewed: 06/11/2024 Reviewed by: Stephanie Estrella MA Student - Fully Assessed Reason for Visit: Transition Of Care [4074] Cmt: [facility] Discharge to SNF Prescriptions as of 2024 [...] Encounter Status:Closed by GOGO BARBOSA on 07/13/24 [facility] 07-04-2024 History of Present illness Narrative Images from the original note were not included. Speech-Language Pathology SPEECH LANGUAGE PATHOLOGY [facility] Dysphagia Treatment Note Patient Name: Mikel Winston Evaluation Date: 07/04/2024 Date of : 1945 Admission Date: 06/25/2024 5:04 PM Age: 78 y.o. Room/Bed: [facility]249/[facility]249 A Subjective Patient alert and cooperative. Seen [...] Start: 06/29/24 Expected End: 07/13/24 Therapy Time OUTDOOR EDUCATION TEACHER Individual Minutes Time In: 0802 Time Out: 08 Minutes: 17 GUILLERMO Keyes Images from the original note were not included. PHYSICAL THERAPY [facility] Treatment Note Name/MRN: Mikel Winston ([id number]) Date of : 1945 Age: 78 y.o. Room/Bed: [facility]249/[facility]249 A Visit #: 1 out of 5 visits Discharge Recommendation: Care Home Facility Equipment Needed: No Prior Level of [...] not included. Speech-Language Pathology SPEECH LANGUAGE PATHOLOGY [facility] Dysphagia Treatment Note Patient Name: Mikel Winston [...] Start: 06/29/24 Expected End: 07/13/24 Therapy Time OUTDOOR EDUCATION TEACHER Individual Minutes Time In: 0852 Time Out: 909 Minutes: 18 GUILLERMO Keyes Images from the original note were not included. OCCUPATIONAL THERAPY [facility] Treatment Note Name/MRN: Mikel Winston ([id number]) Date of : 1945 Age: 78 y.o. Room/Bed: B2-249/B2-249 A Visit #: 1 out of 7 visits Discharge Recommendation: Care Home Facility Equipment Needed: No Prior Level of [...] legs off EOB but required min A CHILD AND FAMILY SERVICES SPECIALIST to elevate trunk. Additional time required to [...] original note were not included. OCCUPATIONAL THERAPY [facility] Initial Evaluation Name/MRN: Mikel Winston ([id number]) Evaluation Date: 07/02/2024 Date of : 1945 Admission Date: 06/25/2024 5:04 PM Age: 78 y.o. Room/Bed: [facility]249/[facility]249 A Discharge Recommendation: Care Home Facility Equipment Needed: No Assessment IMPRESSION: Pt [...] address the below. Recommend planned discharge for [facility] OT with assist PRN. Admitting Diagnosis: AMS, [...] 05/31/2024 Performed by Pravin Poole MD at [facility] Cardiac Cath/EP Lab CHOLECYSTECTOMY CORONARY ARTERY BYPASS GRAFT TOTAL KNEE ARTHROPLASTY Right TUBAL LIGATION Admission Diagnosis: Patient Active Problem List Diagnosis Date Noted Angina at rest (HCC) 12/26/2017 Acute cystitis with hematuria 06/25/2024 Cellulitis of right lower extremity 01/28/2024 BARRY (acute kidney injury) (HCC) 11/18/2022 UTI (urinary tract infection) 11/18/2022 Coronary artery disease involving coronary bypass graft of [place] heart without angina pectoris 09/30/2022 Nonrheumatic aortic [...] Responsibilities: Independent Receives Help From: None Active Inclusion Special Education Teacher: No Prior Level of Function Prior Level [...] elbow flexion / extension grossly 3+/5, functional specimen preparation assistant noted to be 4-/5, shoulder flexion 2+/5, [...] of Care supervision is transferred to a [facility] Therapy Services Occupational Therapist. Goals and/or treatment plan was established in collaboration with patient/family/other representatives. Images from the original note were not included. PHYSICAL THERAPY [facility] Initial Evaluation Name/MRN: Mikel Winston ([id number]) Evaluation Date: 07/02/2024 Date of : 1945 Admission Date: 06/25/2024 5:04 PM Age: 78 y.o. Room/Bed: B2-249/B2-249 A Discharge Recommendation: Care Home Facility Equipment Needed: No Assessment IMPRESSION: Pt is a 78 y.o. female admitted 06/25 with AMS. Pt requires transfer to ICU with hepatic encephalopathy. Pt transferred out of ICU services 06/29. Pt found to have hepatic encephalopathy and UTI. CT head (-). Pt recently admitted to [facility] for pacemaker placement 05/31/2024. Pt was previously [...] 05/31/2024 Performed by Pravin Poole MD at [facility] Cardiac Cath/EP Lab CHOLECYSTECTOMY CORONARY ARTERY BYPASS GRAFT TOTAL KNEE ARTHROPLASTY Right TUBAL LIGATION Admission Diagnosis: Patient Active Problem List Diagnosis Date Noted Angina at rest (HCC) 12/26/2017 Acute cystitis with hematuria 06/25/2024 Cellulitis of right lower extremity 01/28/2024 BARRY (acute kidney injury) ([facility]) 11/18/2022 UTI (urinary tract infection) 11/18/2022 Coronary artery disease involving coronary bypass graft of [place] heart without angina pectoris 09/30/2022 Nonrheumatic aortic [...] Responsibilities: Independent Receives Help From: None Active Inclusion Special Education Teacher: No Prior Level of Function Prior Level [...] of Care supervision is transferred to a [facility] Therapy Services Physical Therapist. Goals and/or treatment [...] day 8. Plan is to go to [facility] SNF - Discontinue palmer - Discussed with [...] Joni Gutierrez MD Division of Hospitalist Medicine [facility] Spiritual Care Note [facility] Palliative Care Patient Name:Mikel Winston Chief Complaint: [...] to patient and people surrounding her. Her stock handler floorperson was visiting with them. Follow up PRN. Is there spiritual distress? Unknown Comment: Interventions: Establish rapport . Care Plan: Care plan PRN . Follow Up: PRN. Debriefed: with stonecutter hand team. Mellissa Vega 07/02/24 Images from the original note were not included. Speech-Language Pathology SPEECH LANGUAGE PATHOLOGY [facility] Dysphagia Treatment Note Patient Name: Mikel Winston [...] Start: 06/29/24 Expected End: 07/13/24 Therapy Time OUTDOOR EDUCATION TEACHER Individual Minutes Time In: 08 Time Out: [...] Joni Gutierrez MD Division of Hospitalist Medicine [facility] Images from the original note were not included. Speech-Language Pathology SPEECH LANGUAGE PATHOLOGY [facility] Dysphagia Treatment Note Patient Name: Mikel Winston [...] the bedside to assist pt with feeding. OUTDOOR EDUCATION TEACHER reviewed diet and swallow strategies. Moderate - [...] use of established swallow strategies Continue acute OUTDOOR EDUCATION TEACHER therapy per initial plan of care and [...] Start: 06/29/24 Expected End: 07/13/24 Therapy Time OUTDOOR EDUCATION TEACHER Individual Minutes Time In: 935 Time Out: [...] not included. Speech-Language Pathology SPEECH LANGUAGE PATHOLOGY [facility] Bedside Swallow Evaluation Patient Name: Mikel Winston Evaluation Date: 06/29/2024 Date of : 1945 Admission Date: 06/25/2024 5:04 PM Age: 78 y.o. [facility] IMPRESSION: S/s oropharyngeal dysphagia. Intermittent overt [...] mastication). Pt would benefit from skilled acute OUTDOOR EDUCATION TEACHER services to address further assessment of prandial [...] be evaluated. Dysphagia History: No history of OUTDOOR EDUCATION TEACHER services in EMR with retrospective chart review [...] 05/31/2024 Performed by Pravin Poole MD at [facility] Cardiac Cath/EP Lab CHOLECYSTECTOMY CORONARY ARTERY BYPASS GRAFT TOTAL KNEE ARTHROPLASTY Right TUBAL LIGATION Admission Diagnosis: Patient Active Problem List Diagnosis Date Noted Angina at rest ([facility]) 12/26/2017 Acute cystitis with hematuria 06/25/2024 Cellulitis of right lower extremity 01/28/2024 BARRY (acute kidney injury) ([facility]) 11/18/2022 UTI (urinary tract infection) 11/18/2022 Coronary artery disease involving coronary bypass graft of [place] heart without angina pectoris 09/30/2022 Nonrheumatic aortic [...] Start: 06/29/24 Expected End: 07/13/24 Therapy Time OUTDOOR EDUCATION TEACHER Individual Minutes Time In: 1430 Time Out: 1445 Minutes: 15 GUILLERMO Keyes Nutrition Assessment Type and Reason for Visit: Reassess Nutrition Recommendations/Plan: NG remains in place, with enteral nutrition at goal, patient tolerating without GI distress. Glucerna 1.5 @ 40 mL/hr will provide: 1440 kcal, 79 g protein, 728 mL free fluid --> 26 kcal and 1.4 g protein/kg IBW(55 kg) Pending OUTDOOR EDUCATION TEACHER evaluation, ADAT per their recommendations As able, please obtain weekly standing scale weights for most accurate anthropometric data and calculation of macronutrient and fluid needs RDN to continue to monitor weekly: fluid accumulation, weight, skin integrity, trends in lab values, tolerance of PO, clinical status, discharge planning. Malnutrition Assessment: Malnutrition Status: At risk for malnutrition (Comment) (EN to goal 06/28, pending OUTDOOR EDUCATION TEACHER eval today (06/29)) Context: Acute Illness Findings of the 6 clinical characteristics of malnutrition: Energy Intake: Mild decrease in energy intake (Comment) (EN at goal since 06/28) Weight Loss: No significant weight loss Body Fat Loss: Mild body fat loss Orbital, Buccal region Muscle Mass Loss: Mild muscle mass loss Temples (temporalis) Fluid Accumulation: Moderate to Severe (+2 BLE) Extremities Dental Hygiene Instructor Strength: Measurable reduction in specimen preparation assistant strength Nutrition Assessment: 78 year old woman who remains admitted to [facility] ICU after being found down by family. Initially admitted to [facility], then transferred to ICU morning of 06/26 [...] NFPE compelted with patient consent. Good PO ARTIST CONSULTANT and prior to acute illness. Pending OUTDOOR EDUCATION TEACHER eval Estimated Daily Nutrient Needs: Energy Requirements Based On: Kcal/kg Weight Used for Energy Requirements: [place] Weight for Energy Calculation (kg): 55 kg Total Energy Requirements (kcals/day): 8285-1142 (25-30 kcal/kg IBW) Weight Used for Protein Requirements: [place] Weight in Kg Used for Protein Requirements: [...] 190# 06/11/24) % Weight Change (Calculated): 2 [place] Body Weight (lbs) (Calculated): 120 lbs [place] Body Weight (Kg) (Calculated): 55 kg % [place] Body Weight (Calculated): 166.7 % BMI (kg/m2) [...] to determine Crissy Denis RDN, LDN, Contact: *[phone] Patient is individual with hx of SBP [...] patient AxOx2-3 today Dysphagia - cleared by OUTDOOR EDUCATION TEACHER for adult easy to chew food GI [...] is a 78 y.o. female admitted to [facility] on 06/25 for altered mental status. Patient seen and examined this morning. Patient's mental status improving, was AxOx-2- 3 today. Patient's daughter in law at bedside. Patient seen by OUTDOOR EDUCATION TEACHER, started on easy to chew diet. NG [...] be obtained due to patient's mental status [place] Symptom Assessment Score [place] Score Pain Score 0 Tiredness Score 6 [...] status: alone Work history: retired, worked in [employer] Family Meeting: (if discussing Advanced Care Planning, [...] from the original note were not included. [facility], Pulmonary Critical Care and Sleep Medicine [address] [place] [address] Critical Care Note: Patient - Mikel Winston, Age - 78 y.o. - 1945 Room Number - [id number] A N - [id number] [facility] # - [id number] Date of Admission - 06/25/2024 5:04 PM [...] artery disease involving coronary bypass graft of [place] heart without angina pectoris Nonrheumatic aortic valve [...] 2863 [I.V.:567; NG/GT:2296] Out: 2130 [Urine:2130] @IODETAILS@ @[id number]@ Lines, ET tube, Devices Lines -none Medications [...] from the original note were not included. [facility], Pulmonary Critical Care and Sleep Medicine [address] [place] [address] Critical Care Note: Patient - Mikel Winston, Age - 78 y.o. - 1945 Room Number - [id number] [id number] Date of Admission - 06/25/2024 5:04 PM [...] artery disease involving coronary bypass graft of [place] heart without angina pectoris Nonrheumatic aortic valve [...] [I.V.:2420.1; Blood:466.5; NG/GT:1519] Out: 1894 [Urine:189] @IODETAILS@ @[email or web address]@ Lines, ET tube, Devices Lines -none Medications [...] from the original note were not included. [facility], Pulmonary Critical Care and Sleep Medicine [address] [place] [address] Critical Care Note: Patient - Mikel Winston, Age - 78 y.o. - 1945 Room Number - [id number] [id number] Date of Admission - 06/25/2024 5:04 PM Hospital Day - 2 HPI/Subjective 78-year-old female, with past medical history significant for coronary artery disease, type 2 diabetes, hypertension, cirrhosis transferred from [facility] to ICU for altered mental status [...] artery disease involving coronary bypass graft of [place] heart without angina pectoris Nonrheumatic aortic valve [...] [I.V.:1036.1; Blood:466.5; NG/GT:173] Out: 945 [Urine:945] @IODETAILS@ @[id number]@ Lines, ET tube, Devices Lines -none Medications [...] 35 minutes so far today, excluding procedures. [facility] Respiratory Care Department Progress [...] assess Fluid Accumulation: Moderate to Severe Extremities Dental Hygiene Instructor Strength: Not Performed Nutrition Assessment: 78 year old woman with PMHx: CAD (s/p CABG 2018), PCI (s/p stenting in 2018 d/t moderate aortic stenosis), DMII(A1C=6.1% 01/28/24), CKD stage III, liver cirrhosis, osteoporosis, HTN. Most recently admitted to [facility] 05/29-06/01/24 with bilateral leg swelling, initially presented to [facility] ED then transferred to [facility] for PPM placement. Underwent s/p [employer] PPM implant on 05/31/25, post op device check was normal and discharged home in improved condition. She currently presents to [facility] with AMS. LKW ~1100 on 06/25 while speaking to daughter over the phone, called dropped. Granddaughter later found patient ~1500 on 06/25 slumped in here chair and confused at home. Significant labs on admit: Hgb(9.0), Hct(27.7), BUN(37), Creatinine(1.40), INR(1.2), troponin(0.040). +Urine for EColi. +FBOT. Admitted to [facility], in jewel cupping machine operator mental status with further decline- only responding to painful stimuli. +Bloody stool noted, with coffee ground emesis. PROFESSIONAL NURSE called and transferred to ICU this morning. NG Placed at 0945. RN with patient at time of attempted assessment. Deferred NFPE until follow-up. Discussed with MD via secureChat, agreeable to begin trophic EN once NG placement confirmed. Estimated Daily Nutrient Needs: Energy Requirements Based On: Kcal/kg Weight Used for Energy Requirements: [place] Weight for Energy Calculation (kg): 55 kg Total Energy Requirements (kcals/day): 8111-6848 (25-30 kcal/kg IBW) Weight Used for Protein Requirements: [place] Weight in Kg Used for Protein Requirements: [...] 190# 06/11/24) % Weight Change (Calculated): -3.1 [place] Body Weight (lbs) (Calculated): 120 lbs [place] Body Weight (Kg) (Calculated): 55 kg % [place] Body Weight (Calculated): 158.3 % BMI (kg/m2) [...] to determine Crissy Denis RDN, LDN, Contact: *[phone] Images from the original note were not included. PHYSICAL THERAPY [facility] Name/MRN: Mikel Winston ([id number]) Date: 06/26/2024 Therapy eval and treat orders received. Chart review complete. Pt in with AMS and initially able to respond to verbal cues. PROFESSIONAL NURSE called this a.m. with pt experiencing multiple [...] original note were not included. OCCUPATIONAL THERAPY [facility] Name/MRN: Mikel Winston ([id number]) Date: 06/26/2024 Therapy eval and treat orders received. Chart review complete. Pt in with AMS and initially able to respond to verbal cues. PROFESSIONAL NURSE called this a.m. with pt experiencing multiple [...] will be decided documented in this encounter [facility] 07-04-2024 Hospital course Narrative Images from the [...] back to baseline. Plan is discharge to [facility] Acute, acute on chronic, unstable/uncontrolled chronic problems/diagnoses: [...] Your Medications These medications were sent to [facility]/pharmacy #[id number] [place] [id number] [facility] [place] [address] dextromethorphan-guaiFENesin 30-600 MG 12 hr tablet lactulose 10 GM/15ML solution Recommended Follow-up: Komal Cohn DO [address] [facility] [address] Schedule an appointment as soon as possible for a visit in 1 week(s) Hospital follow up Complexity of Follow up: [] Moderate Complexity: follow up within 7-14 calendar days (62277) [x] Severe Complexity: follow up within 7 calendar days (89153) Follow up Testing, Pending results or Referrals [...] Joni Gutierrez MD Division of Hospitalist Medicine [facility] 07/04/2024, 9:25 AM documented in this encounter [facility] 07-04-2024 Note [facility] Miscellaneous Notes Discussed with primary team [...] tried but unable to get trip to [facility] booked before 4:30 pm. Trips are now booking out to 5:30 pm. Trip now scheduled for tomorrow 07/04 @ 1000. Called Heidi the Liaison form [employer] to update her that transport will be rescheduled for tomorrow 07/04/24 @ 1000. Length of Stay (Days): 8 GMLOS: 3.2 Attempted to dc patient to [facility] this afternoon however the earliest flower buncher or picker in Roundtrip was for 5:30 and [facility] are unable to accept patients after 4;30. Rescheduled the transport for tomorrow 07/04 at 10;00 am. Voicemail message left for patients daughter to update her with tomorrows dc date and time. [facility] did try to reach out to [facility] rachid update. Care Management Progress Note GRAIN MANAGER takseyumiko to complete 7000 and send DC packet and MAR to [facility]. set up transport for 2:30 pm. Updated Danasicaro Gordon at [facility] at DC time. Length of Stay (Days): 8 GMLOS: 3.2 Patient Choice Patient Name: MIKEL WINSTON Date of : 1945 All Providers Sent Referral Name: [facility] Phone: [phone] Address: [address] [place] [address] Discharge med list transmitted to SNF [facility] via Careport per TCC request. 7000 was entered into [place] [facility] for the SNF- FACILITY IS AWARE [...] Progress Note Received call from Rosa at [facility] and informed me that Precert has been obtained and good till 07/05/24. [address] Gutierrez and plan is to DC pt tomorrow. [facility] DCP: Pt to go to SNF tomorrow. Length of Stay (Days): 7 GMLOS: 3.2 Care Management Progress Note Spoke with Liaison From [facility] and they did accept pt. She wants updated PT/OT notes. GRAIN MANAGER tasked to send updated PT/OT notes so they can start precert auth on their end. Barrier to DC. Awaiting precert auth. Length of Stay (Days): 7 GMLOS: 3.2 Sent therapy notes to SNF [facility] via Careport per TCC request. Await review and response regarding ability to accept. TCC notified. Referral placed to SNF-[facility] via Careport per TCC request. Await review and response regarding ability to accept. TCC notified. Care Management Progress Note Called to pt's room by secretary to the vice president that pt wanted to speak to this TCC about SNF choice. Met with pt, introduced self and explained role. Pt's stock handler floorperson and in the room. Pt gives this TCC permission to speak to them also about DC planning. Pt and stock handler floorperson's Soheila Angulo [phone] want this TCC to make referral to [facility]. GRAIN MANAGER tasked to make referral. Pt does not have any further SNF choices. Informed her that I will get back to her. Also received call from [facility] liaison and he states pt [...] from the original note were not included. [facility] Palliative Care Transitions of Care Note [...] of the liver who was admitted to [facility] on 06/25 with complain of altered mental status. Patient had Rapid response called at 4.30 am on 06/26 as she was not responding to any verbal stimuli. Patient was transferred to ICU. Acute encephalopathy - multifactorial likely due to combination of hepatic encephalopathy, UTI - mental status improving, patient AxOx2-3 today Dysphagia - cleared by OUTDOOR EDUCATION TEACHER for adult easy to chew food GI [...] is maintained or improved Outcome: Not Progressing PROFESSIONAL NURSE paged for decline in mental status. Per [...] at this time. documented in this encounter [facility] 07-03-2024 Nurse Note Report called to [facility]. Pt transport is scheduled for 2:30pm. Patient was informed that her catheter needed to be removed per Doctors order. Patient currently has family visiting and is eating dinner and would like to wait until later. Patient was asked to call the nurse when she was ready for it to be removed. documented in this encounter [facility] 07-03-2024 Hospital Discharge instructions Joni Gutierrez MD - 07/03/2024 7:52 AM EST Images from the original note were not included. Continuity of Care Form Patient Name: Mikel Winston : 1945 Admit date: 06/25/2024 Discharge date: 07/03/24 Code Status Order: DNR-CCA Advance Directives: N Admitting Physician: Erinn Sanotro MD PCP: KOMAL COHN DO Discharging Nurse: Kelly Cunningham RN Discharging Hospital Unit/Room#: B2-249/B2-249 A Discharging Unit Phone Number: [phone] Emergency Contact: Extended Emergency Contact Information Primary Emergency Contact: Jann,Arnel Mobile Relation: Child Secondary Emergency Contact: Russell Winston Mobile Relation: Child Past Surgical History: Past Surgical History: Procedure Laterality Date APPENDECTOMY CARDIAC ELECTROPHYSIOLOGY PROCEDURE N/A 05/31/2024 Performed by Pravin Poole MD at [facility] Cardiac Cath/EP Lab CHOLECYSTECTOMY CORONARY ARTERY BYPASS [...] artery disease involving coronary bypass graft of [place] heart without angina pectoris Nonrheumatic aortic valve [...] assistance Toileting Total assistance Feeding Minimal assistance Data Analyst Etl Developer Minimal assistance Med Delivery yes Wound Care [...] Date: 06/25/24 Discharging to Facility/ Agency Name: [facility] Address: [address] [place] [address] Fax: Dialysis Facility (if applicable) Name: Address: Dialysis Schedule: Phone: Fax: Comic Artist/Livestock Trucker signature: ICIAN SECTION Name: Mikel Winston Prognosis: fair Condition at Discharge: stable Rehab Potential (if transferring to Rehab): fair Recommended Labs or Other Treatments After Discharge: CMP, CBC and ammonia levels every 3 days The individual is being admitted to a nursing facility directly from an [facility] or a unit of a [facility] that is not operated by or licensed by [facility] under section 5119.14 or 5160-3-15.1 5 The individual requires the level of services provided by a nursing facility for the condition for which he or she was treated in the hospital and, Physician Certification: I certify the above information and transfer of Mikel Winston is necessary for the continuing treatment of the diagnosis listed and that she requires chcf facility for less than 30 days. Update Admission H&P: No change in H&P PHYSICIAN SIGNATURE: The following attachments cannot be sent through Care Everywhere.Acute Cystitis Discharge Instructions (Bruneian)Ammonia Blood Test (Bruneian)documented in this encounter [facility] 07-02-2024 Note Referral placed to [facility] via [facility] per TCC request. Await review and response regarding ability to accept. TCC notified. 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 Pricilla Steinebrg MD Time-based code 70712 for 16-45 minutes. Add-on code 01376 at 46 minutes and each additional 30 [...] 05/31/2024 Performed by Pravin Poole MD at [facility] Cardiac Cath/EP Lab CHOLECYSTECTOMY CORONARY ARTERY BYPASS [...] be obtained due to patient's mental status [place] Symptom Assessment Score [place] Score Pain Score 0 per FLACC Tiredness [...] Score: 0 Assessed by: provider. Social history: [place] status: no Marital status: Living status: alone Work history: retired, worked in [employer] Family Meeting: Participants: extended family Family meeting [...] 05/31/2024 Performed by Pravin Poole MD at [facility] Cardiac Cath/EP Lab CHOLECYSTECTOMY CORONARY ARTERY BYPASS [...] pain). 06/01/24 06/01/25 Kyung Hogan APRN - INDUSTRIAL ENGINEERING MANAGER Current Facility-Administered Medications Medication Dose Route Frequency [...] 250 mL/hr IntraVENous PRN Donna Del Angel, SHOVEL ENGINEER - INDUSTRIAL ENGINEERING MANAGER sodium chloride 0.9% (NS) flush 5-40 mL [...] to severe toxic metabolic encephalopathy Problem List: [facility] cirrhosis - no notes in chart, seen [...] 05/31/2024 Performed by Pravin Poole MD at [facility] Cardiac Cath/EP Lab CHOLECYSTECTOMY CORONARY ARTERY BYPASS [...] 10 min Stress: Stress Concern Present (01/28/2024) [place] [employer] - Occupational Stress Questionnaire Feeling of Stress : To some extent Social Connections: Moderately Integrated (01/28/2024) Social Connection and Isolation Panel [NHANES] Frequency of Communication with Friends and Family: More than three times a week Frequency of Social Gatherings with Friends and Family: More than three times a week Attends Lutheran Services: More than 4 times per year [...] pain). 06/01/24 06/01/25 Kyung Hogan APRN - INDUSTRIAL ENGINEERING MANAGER Objective: Oxygen Delivery: VITALS: BP 151/63 (BP [...] Normal [] Scar/Lesion/Mass Inspection of teeth/lips/gums Dentition: [][place] Teeth []Dentures Lips/Gums: []Intact []Lesion Present Mucosa: []Nord []Moist []Dry Neck: External Appearance Overall Appearance: [...] -- ABGs: No results for input(s): PHART, MYT3UEW, PO2ART, RKY2YPP, SO2ART, Q3SIZHJJ in the last 72 hours. Lactic Acid: [...] physicians, excluding procedures. documented in this encounter [facility] 06-26-2024 Note [facility] 06-26-2024 Procedure note Associated Ord er(s): EEG Images from the original note were not included. [facility] [address] [place] [id number] ROUTINE EEG REPORT Patient Name: Mikel Winston : 1945 Date of Study: 06/26/2024 Duration Recorded: 22 minutes EEG#: [id number] EPIC APPLICATION COORDINATOR: TAE PROVIDER REQUESTING STUDY: Fadia Stringer MD [...] Fadia Stringer MD 20 g at 06/26/24 1057 levothyroxine [...] study with video was carried out at [facility]. Scalp electrodes were positioned in person by an anesthesiology technologist, following patient education, according to the 10-20 International system of electrode placement and maintained for integrity and quality of the recording. EEG data with video was recorded continuously and digitally stored. The anesthesiology technologist reviewed all automated detections and manual [...] triphasic wave complexes. These complexes demonstrated an nmkekukg-wm-caxlbxxlv phase delay. Time Elapsed: 00:05:53 INTERICTAL EPILEPTIFORM ACTIVITY: No epileptiform activity was seen. ICTAL ACTIVITY: No ictal activity was seen. NON-EPILEPTIC EVENTS: None. ACTIVATION PROCEDURES: Photic stimulation was not performed. Hyperventilation was not performed. IMPRESSION AND ACTIONS TAKEN: This routine EEG with video is abnormal. Continuous tspixkri-ut-sannjk diffuse slowing is seen with intermixed triphasic waves. This activity was unresponsive to stimulation. No seizures are captured. No sleep architecture is seen. The findings are consistent with a wlqhhgqv-ig-vfxnkn toxic-metabolic encephalopathy. Mark Chase MD PhD Epilepsy Attending documented in this encounter [facility] 06-25-2024 Note [facility] 06-25-2024 History and physical note Attending History [...] 05/31/2024 Performed by Pravin Poole MD at [facility] Cardiac Cath/EP Lab CHOLECYSTECTOMY CORONARY ARTERY BYPASS [...] 10 min Stress: Stress Concern Present (01/28/2024) [place] [employer] - Occupational Stress Questionnaire Feeling of Stress : To some extent Social Connections: Moderately Integrated (01/28/2024) Social Connection and Isolation Panel [NHANES] Frequency of Communication with Friends and Family: More than three times a week Frequency of Social Gatherings with Friends and Family: More than three times a week Attends Lutheran Services: More than 4 times per year [...] - DO NOT do CPR, intubation] [_] [DNR-AGENT SPA DESK - Comfort care only] [_] DNR form [...] Erinn Santoro MD Division of Hospitalist Medicine [employer] [facility] documented in this encounter [facility] 06-25-2024 Emergency department Note Emergency Department Encounter [...] voice. Patient denies pain at this time [place] I was wearing a N95, Surgical mask [...] 05/31/2024 Performed by Pravin Poole MD at [facility] Cardiac Cath/EP Lab CHOLECYSTECTOMY CORONARY ARTERY BYPASS [...] 10 min Stress: Stress Concern Present (01/28/2024) [place] [employer] - Occupational Stress Questionnaire Feeling of Stress : To some extent Social Connections: Moderately Integrated (01/28/2024) Social Connection and Isolation Panel [NHANES] Frequency of Communication with Friends and Family: More than three times a week Frequency of Social Gatherings with Friends and Family: More than three times a week Attends Lutheran Services: More than 4 times per year [...] artery disease involving coronary bypass graft of [place] heart without angina pectoris SITagliptin (Januvia) 25 [...] 399 ms QTC Interval 507 ms P [place] 46 degrees QRS [place] -12 degrees T Wave [place] 173 degrees IA Interval 229 ms CBC auto differential Collection [...] Department Physician in the absence of a frame assembler. see their note for interpretation of EKG. [...] Chronic renal insufficiency noted. Patient admitted to [facility]. Final Diagnosis: 1. Acute cystitis with [...] specified. DISCHARGE MEDICATIONS: Current Discharge Medication List @[facility]([id number]:LAST:1)@ (Please note: Portions of this note were completed with a voice recognition program. Efforts were made to edit the dictations but occasionally words and phrases are mis-transcribed.) Form [id number] Lawson Melvin PA-C [employer] Lawson Melvin PA-C 06/25/242037 Cosigned by Kaiden David MD at 06/25/2024 9:14 PM EST Emergency Department Encounter [facility] ED Patient: Mikel Winston : 1945 Date [...] dictating provider for clarification.) Kaiden David MD [facility] Kaiden David MD 06/25/241941 documented in this encounter [facility] 06-11-2024 Note HNO ID: [id number] Author: KOMAL COHN DO Service: ? Author Type: Physician Type: Progress Notes Filed: 06/18/2024 19:25 Note Text: [facility] [place] Cohn DO [address] [place] [address] Date of Evaluation: 06/11/2024 Patient Name: Mikel Winston : 1945 Chief Complaint: Patient presents with: Hospital Discharge: 06/01/24 [facility], pace maker placement. Skin Check: Skin tag right upper shoulder area Nursing Intake: There are no exam notes on file for this visit. Subjective Ms. Winston is a 78 year old female who presents with the following complaint(s): Patient presents to follow up from [facility] 05/29/24-06/01/24. Patient began to feel tired and [...] pulses. Heart al (more content not included)... [facility] 06-11-2024 History of Present illness Narrative Images from the original note were not included. [facility] Medicine [place] DO Lalit [address] [place] [address] Date of Evaluation: 06/11/2024 Patient Name: Mikel Winston : 1945 Chief Complaint: Patient presents with: Hospital Discharge: 06/01/24 [facility], pace maker placement. Skin Check: Skin tag right upper shoulder area Nursing Intake: There are no exam notes on file for this visit. Subjective Ms. Winston is a 78 year old female who presents with the following complaint(s): Patient presents to follow up from [facility] 05/29/24-06/01/24. Patient began to feel tired and [...] 2024 1:57 PM documented in this encounter [facility] 06-06-2024 Telephone encounter Note Christie with [...] know that but she will be here. [facility] 06-06-2024 Miscellaneous Notes Christie with [facility] [...] will be here. documented in this encounter [facility] 06-01-2024 Nurse Note RN removed patients ivs. RN reviewed discharge instructions with patient. Patient belongings gathered. Patient ready for discharge waiting for ride. [facility] 06-01-2024 Nurse Note RN removed patients ivs. RN reviewed discharge instructions with patient. Patient belongings gathered. Patient ready for discharge waiting for ride. Report called to [facility] . Pt and family aware of transport to facility. documented in this encounter [facility] 06-01-2024 Miscellaneous Notes Patient Choice Patient Name: MIKEL WINSTON Date of : 1945 All Providers Sent Referral Name: [facility] Phone: [phone] Address: [address] [place] [address] Start PACC Note Home Health Referral Educated patient on Home Care and services available. Patient offered choice of available HHC and agreeable to SN services with [facility] - Home Care. Care Types: None Isolation Precautions: No active isolations Social Determinates of Health: Tobacco Use: Medium Risk (04/27/2024) Received from [facility] Patient History Smoking Tobacco Use: Former [...] is noted as yes - consider a WHEEL ALIGNMENT MECHANIC evaluation once the patient returns home. START PATIENT REGISTRATION INFORMATION Order Information Order Signing Physician: Ariadne Marie MD Service Ordered RN ?: Yes Service Ordered PT ?: No Service Ordered OT ?: No Service Ordered ST ?: No Service Ordered WHEEL ALIGNMENT MECHANIC?:No Service Ordered CHILD AND FAMILY SERVICES SPECIALIST?: No Following Physician: KOMAL COHN DO Following Physician Overseeing Physician: KOMAL COHN DO (Required for Residents only) Agreeable to Follow? Yes Date/Time of Call 06/01/24 11:27 AM, Spoke with: Staff Care Coordination Same Day SOC?: No Primary Care Physician: KOMAL COHN DO Primary Care Physician Primary Care Physician Address: [address] [place] [address] / [facility] [id number] Visit Instructions: Recent patient would like Shira again. Declined PT but could probably use it. Service Discharge Location Type: Home with Home Care Service Facility Name: N/A Service Floor Facility: N/A Service Room No: N/A Demographics Patient Last Name: Ravindra Patient First Name: Mikel Language/Communication Barrier: n/a Service Address: [address] [place] [address] Service City: [facility] ST: [place] Service ZIP: [address] Service (home) Other phone numbers: Telephone Information: [...] Caregiver Phone Number: n/a Caregiver Notes: N/A [employer] List No END PATIENT REGISTRATION INFORMATION Pt [...] echo 04/2024, DM2, CKD 3 went to [facility] ED on 05/30/2024 with fatigue and shortness of breath x 2-3days and was found to be in 2-1 AV block and was then transferred to [facility] for pacemaker need. Discharge Date: 06/01/24 Referral Source-PACC: (Hospital/Unit): [facility] / W4-423/W4-423 A End PACC Note Problem: Knowledge Deficit Goal: Patient/family/caregiver demonstrates understanding of disease process, treatment plan, medications, and discharge instructions Outcome: Progressing Problem: Potential for Compromised Skin Integrity Goal: Skin Integrity is Maintained or Improved Outcome: Progressing Care Management Progress Note PM placed yesterday. Per therapy evaluation. Recommendation is SNF. Patient declines SNF. Agreeable to HC RN. Referral in [facility] to [facility]. Length of Stay (Days): 3 GMLOS: [...] Goal: Nutritional status is improving Outcome: Progressing Business Solution Analyst following case for Discharge Needs. Pt is currently not active with [facility] [employer] [facility], was discharged 05/09/2024. Care Managment Initial Assessment Date: 05/30/2024 Patient Name: Mikel Winston : 1945 Patient Information Source of Information: Patient Cognition/Language: WFL - Within Functional Limits Permission given to speak with patient equal opportunity representative/caregiver as indicated: Yes (DTDelilah Forte or (Bharti), ) Confirmation of Payer with patient/family: Yes Payer Name: [employer] [place]: No Confirmation of Primary Care Physician: Confirmed [...] Daily Living Prescription Coverage: Yes Pharmacy Used: [facility] in [facility] Medication Management: Assistance Type: Dose packaging [...] Additional Information: Chart reviewed. Patient admitted to [facility] for treatment of bradycardia. Noted to have possibly been taking too much beta partha at home. Atenolol currently on hold. Regular diet. Cardiology following -plan in place to hold atenolol and monitor. If AV block does not resolve may need pacemaker. If so, will need transferred to [facility] for this procedure. Met with patient at [...] plan: Home with resumption of home care. [facility] did request pt/ot evaluations to Dr. Garza. Lilibeth Laurent RN The patient is Moderately Stable - Low risk of patient condition declining or worsening The patient's goals for the shift include to feel better/rest The clinical goals for the shift include stable heart rate documented in this encounter [facility] 06-01-2024 Note Formatting of this n ote might be different from the original. Patient Choice Patient Name: MIKEL WINSTON Date of : 1945 All Providers Sent Referral Name: [facility] Phone: [phone] Address: [address] [place] [address] [facility] 06-01-2024 Note Formatting of this n ote might be different from the original. Patient Choice Patient Name: MIKEL WINSTON Date of : 1945 All Providers Sent Referral Name: [facility] Phone: [phone] Address: [address] [place] [address] [facility] 06-01-2024 History of Present illness Narrative BMP orders for 1 week post hospital prior to PCP appt. documented in this encounter [facility] 06-01-2024 Note Formatting of this n ote is different from the original. Start PACC Note Home Health Referral Educated patient on Home Care and services available. Patient offered choice of available HHC and agreeable to SN services with [facility] - Home Care. Care Types: None Isolation Precautions: No active isolations Social Determinates of Health: Tobacco Use: Medium Risk (04/27/2024) Received from [facility] Patient History Smoking Tobacco Use: Former [...] is noted as yes - consider a WHEEL ALIGNMENT MECHANIC evaluation once the patient returns home. START PATIENT REGISTRATION INFORMATION Order Information Order Signing Physician: Ariadne Marie MD Service Ordered RN ?: Yes Service Ordered PT ?: No Service Ordered OT ?: No Service Ordered ST ?: No Service Ordered WHEEL ALIGNMENT MECHANIC?:No Service Ordered CHILD AND FAMILY SERVICES SPECIALIST?: No Following Physician: KOMAL COHN DO Following Physician Overseeing Physician: KOMAL COHN DO (Required for Residents only) Agreeable to Follow? Yes Date/Time of Call 06/01/24 11:27 AM, Spoke with: Staff Care Coordination Same Day SOC?: No Primary Care Physician: KOMAL COHN DO Primary Care Physician Primary Care Physician Address: [address] [place] [address] / [place] [phone] Visit Instructions: Recent patient would like Shira again. Declined PT but could probably use it. Service Discharge Location Type: Home with Home Care Service Facility Name: N/A Service Floor Facility: N/A Service Room No: N/A Demographics Patient Last Name: Ravindra Patient First Name: Mikel Language/Communication Barrier: n/a Service Address: [address] Service City: [place] Service ST: [place] Service ZIP: [address] Service (home) Other phone numbers: Telephone Information: [...] Caregiver Phone Number: n/a Caregiver Notes: N/A [employer] List No END PATIENT REGISTRATION INFORMATION Pt [...] echo 04/2024, DM2, CKD 3 went to [facility] ED on 05/30/2024 with fatigue and shortness of breath x 2-3days and was found to be in 2-1 AV block and was then transferred to [facility] for pacemaker need. Discharge Date: 06/01/24 Referral Source-PACC: (Hospital/Unit): [facility] / W4-423/W4-423 A End PACC Note [facility] 06-01-2024 Note Formatting of this n ote is different from the original. Start PACC Note Home Health Referral Educated patient on Home Care and services available. Patient offered choice of available HHC and agreeable to SN services with [facility] - Home Care. Care Types: None Isolation Precautions: No active isolations Social Determinates of Health: Tobacco Use: Medium Risk (04/27/2024) Received from [facility] Patient History Smoking Tobacco Use: Former [...] is noted as yes - consider a WHEEL ALIGNMENT MECHANIC evaluation once the patient returns home. START PATIENT REGISTRATION INFORMATION Order Information Order Signing Physician: Ariadne Marie MD Service Ordered RN ?: Yes Service Ordered PT ?: No Service Ordered OT ?: No Service Ordered ST ?: No Service Ordered WHEEL ALIGNMENT MECHANIC?:No Service Ordered CHILD AND FAMILY SERVICES SPECIALIST?: No Following Physician: KOMAL COHN DO Following Physician Overseeing Physician: KOMAL COHN DO (Required for Residents only) Agreeable to Follow? Yes Date/Time of Call 06/01/24 11:27 AM, Spoke with: Staff Care Coordination Same Day SOC?: No Primary Care Physician: KOMAL COHN DO Primary Care Physician Primary Care Physician Address: [address] [place] [address] / [place] [id number] Visit Instructions: Recent patient would like Shira again. Declined PT but could probably use it. Service Discharge Location Type: Home with Home Care Service Facility Name: N/A Service Floor Facility: N/A Service Room No: N/A Demographics Patient Last Name: Ravindra Patient First Name: Mikel Language/Communication Barrier: n/a Service Address: [address] [place] [address]: [place] Service ST: [place] Service ZIP: [address] Service (home) Other phone numbers: Telephone Information: [...] Caregiver Phone Number: n/a Caregiver Notes: N/A [employer] List No END PATIENT REGISTRATION INFORMATION Pt [...] echo 04/2024, DM2, CKD 3 went to [facility] ED on 05/30/2024 with fatigue and shortness of breath x 2-3days and was found to be in 2-1 AV block and was then transferred to [facility] for pacemaker need. Discharge Date: 06/01/24 Referral Source-PACC: (Hospital/Unit): [facility] / W4-423/W4-423 A End PACC Note [facility] 06-01-2024 Plan of care note Problem: Knowledge Deficit Goal: Patient/family/caregiver demonstrates understanding of disease process, treatment plan, medications, and discharge instructions Outcome: Progressing Problem: Potential for Compromised Skin Integrity Goal: Skin Integrity is Maintained or Improved Outcome: Progressing [facility] 06-01-2024 Note [facility] 06-01-2024 Hospital course Narrative Images from the [...] 3, HTN, and hypothyroidism who presented to [facility] ED 05/29/24 for bilateral leg swelling, shortness of breath and fatigue x1 week, noted her pulse ox at home with HR of 35 BPM. EKG on arrival showed 2:1 AV block HR 30's, her atenolol was held at that time in hopes the bradycardia would resolve. Decision was made to transfer to [facility] 05/30 for PPM placement. She is now [...] Nephrology appt Jun 11 @ 2:20 in [facility], PCP BMP in one week post hospital [...] Complexity: follow up within 7-14 calendar days (05888) [] Severe Complexity: follow up within 7 calendar days (00671) FOLLOW UP TESTING, PENDING RESULTS OR REFERRALS AT TRANSITIONAL CARE VISIT: [] Yes [x] No PENDING STUDIES: None DISPOSITION: Home Follow up with [facility] [address] [place] [address] [address] Go on 06/20/2024 wound check appt time @ 1:00pm Pravin Poole MD [address] [facility] [id number] Go on 08/31/2024 appt time @ 1:15pm [...] DISCHARGE TIME: < 30 min SIGNED: GARCIA Meeks CNP 06/01/2024, 1:08 PM Cosigned by Ariadne Marie MD at 06/01/2024 3:10 PM EDT documented in this encounter [facility] 06-01-2024 History of Present illness Narrative Images from the original note were not included. PHYSICAL THERAPY [facility] Treatment Note Name/MRN: Mikel Winston ([id number]) Date of : 1945 Age: 78 y.o. 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 PHYSICAL THERAPY [facility] Re-Evaluation Name/MRN: Mikel Winston ([id number]) Evaluation Date: 05/31/2024 Date of : 1945 Admission Date: 05/29/2024 6:28 PM Age: 78 y.o. Room[facility]Bed: [facility] A Discharge Recommendation: Care Home Facility Equipment Needed: No Assessment IMPRESSION: PT re-eval completed; pt transferred from [facility] for impending pacemaker placement. Min assist x [...] List Diagnosis Date Noted Angina at rest ([facility]) 12/26/2017 Cellulitis of right lower extremity 01/28/2024 BARRY (acute kidney injury) ([facility]) 11/18/2022 UTI (urinary tract infection) 11/18/2022 Coronary artery disease involving coronary bypass graft of [place] heart without angina pectoris 09/30/2022 Nonrheumatic aortic valve stenosis 09/30/2022 Essential hypertension 09/30/2022 Dyslipidemia 09/30/2022 Generalized edema 01/27/2022 Diabetes ([facility]) 01/27/2022 Symptomatic sinus bradycardia 05/29/2024 Medical [...] Responsibilities: Independent Receives Help From: Family Active Inclusion Special Education Teacher: No Prior Level of Function Prior Level [...] of Care supervision is transferred to a [facility] Therapy Services Physical Therapist. Goals and/or treatment plan was established in collaboration with patient/family/other representatives. [facility] Health and Vascular [place] [facility] Cardiology /Electrophysiology Progress Note HPI / Interval [...] original note were not included. OCCUPATIONAL THERAPY [facility] Name/MRN: Mikel Winston ([id number]) Date: 05/31/2024 Orders received for OT evaluation and treat. Per medical chart, pt scheduled for PPM today. Will hold therapy and continue to follow. Dino Coelho OT Nutrition rescreen completed. Chart reviewed. Patient to be monitored and followed by the diet sales support technician. Brief Progress Note: Mrs. Winston is a pleasant 78 YO female who presented to [facility] from [facility] after being seen by cardiology today for symptomatic bradycardia and was found to be in 2:1 Mobitz type II AV Block. She was transported to [facility] for EP evaluation and PPM placement. She [...] original note were not included. PHYSICAL THERAPY [facility] Initial Evaluation Name/MRN: Mikel Winston ([id number]) Evaluation Date: 05/30/2024 Date of : 1945 Admission Date: 05/29/2024 6:28 PM Age: 78 y.o. Room[facility]Bed: [facility] B Discharge Recommendation: Care Home Facility, Continue to assess pending progress Equipment [...] lower extremity 01/28/2024 BARRY (acute kidney injury) ([facility]) 11/18/2022 UTI (urinary tract infection) 11/18/2022 Coronary artery disease involving coronary bypass graft of [place] heart without angina pectoris 09/30/2022 Nonrheumatic aortic valve stenosis 09/30/2022 Essential hypertension 09/30/2022 Dyslipidemia 09/30/2022 Generalized edema 01/27/2022 Diabetes ([facility]) 01/27/2022 Medical Precautions: No active isolations [...] Responsibilities: Independent Receives Help From: None Active Inclusion Special Education Teacher: No Prior Level of Function Prior Level [...] of Care supervision is transferred to a [facility] Therapy Services Physical Therapist. Goals and/or treatment plan was established in collaboration with patient/family/other representatives. Images from the original note were not included. [facility] CARDIAC PROGRESSIVE CARE UNIT PCU [address] [place] [address] Dept: [phone] Contacted the electrophysiology service at the [facility]. Our loom fixer reviewed the consult and does not expect the 2-1 AV block to improve with time. Will arrange for transfer to [facility] for planned pacemaker tomorrow. Hospitalist Progress Note 05/30/2024 [phone]: Please page me ([phone]) for patient care issues. [phone]: Please page [facility] Hospitalist for any issues. Subjective: Admit [...] the phone and they recommended transfer to [facility] for possible pacemaker. Discussed with patient [...] Bradycardia= tele, cardiology consult reviewed, transferred to [facility] Mobitz type II block-stopped atenolol Elevated [...] was consulted and they recommended transfer to [facility], for possible pacemaker placement Reached out to [facility] and she will be admitted to [...] MD Division of Hospitalist Medicine Inpatient Medical Services/[facility] Images from the original note were not included. [facility] ED [address] [facility] [address] Dept: [phone] I was asked about this patient's bradycardia. [...] all resolve. RBC documented in this encounter [facility] 06-01-2024 Note Formatting of this n ote might be different from the original. Care Management Progress Note PM placed yesterday. Per therapy evaluation. Recommendation is SNF. Patient declines SNF. Agreeable to HC RN. [facility]. Length of Stay (Days): 3 GMLOS: 2.3 [facility] 06-01-2024 Note Formatting of this n ote might be different from the original. Care Management Progress Note PM placed yesterday. Per therapy evaluation. Recommendation is SNF. Patient declines SNF. Agreeable to HC RN. [facility]erral [facility] to [facility]. Length of Stay (Days): 3 GMLOS: 2.3 [facility] 06-01-2024 Plan of care note The patient is Moderately Stable - Low risk of patient condition declining or worsening The patient's goals for the shift include comfort The clinical goals for the shift include no complications with new pacer and surgical site Goals met [facility] 05-31-2024 Note Procedure Details PROCEDURE: Implantation of a dual chamber permanent pacemaker. ASSISTANTS: None CATHETERS AND/OR DRAINS: Not applicable SPECIMENS: None APPROACH: Left Axillary Vein DEVICE IMPLANTED: Medtronic [id number] LEAD INFORMATION: RA: Medtronic 5076-52, SN: [id number], P-wave 2.0V, Impedance 608ohms, Threshold 1.5V@0.4ms RV: Medtronic [id number], SN: [id number], No intrinsic R-wave, Impedance 1007ohms, Threshold 0.5V@0.4ms [...] morphology. The sheath was split using the [employer] splitting tool. The right atrial lead was [...] with patient who consented to blood products. [employer] Phone: 05-31-2024 Note Formatting of this n ote might be different from the original. Sedation Plan ASA class 2 - patient with mild systemic disease Mallampati class: II - soft palate, uvula, fauces visible. Sedation plan: moderate (conscious sedation) Risks, benefits, and alternatives discussed with patient. Use of blood products discussed with patient who consented to blood products. [employer] Phone: 05-31-2024 Hospital Discharge instructions Kyung Hogan, SHOVEL ENGINEER - INDUSTRIAL ENGINEERING MANAGER - 05/31/2024 2:54 PM EDT Post Pacemaker [...] in CPR. Call the Device Clinic at [phone] if you have any questions regarding your [...] 05/31/2024 Performed by Pravin Poole MD at [facility] Cardiac Cath/EP Lab CHOLECYSTECTOMY CORONARY ARTERY BYPASS [...] artery disease involving coronary bypass graft of [place] heart without angina pectoris Nonrheumatic aortic valve [...] (213 lb) Mental Status: {FAM Patient Mental Status:53099} IV Access: {FAM IV Access:07267} Nursing Mobility/ADLs: Walking {CATY ADL:24768::Independent} Transfer {CATY ADL:93925::Independent} Bathing {CATY ADL:82323::Independent} Dressing {CATY ADL:88188::Independent} Toileting {CATY ADL:90706::Independent} Feeding {CATY ADL:71229::Independent} Data Analyst Etl Developer {CATY ADL:13275::Independent} Med Delivery {yes/no:58158} Wound Care Documentation and Therapy: Wound/Incision 05/31/24 Chest Left (Active) Number of days: 0 Elimination: Continence: Bowel: {yes/no:13641} Bladder: {yes/no:08106} Urinary Catheter: {FAM Urinary Catheter:99341} Colostomy/Ileostomy/Ileal Conduit: {YES / NO:} Date of Last BM: No intake or output data in the 24 hours ending 06/01/24 1139 No intake/output data recorded. Safety Concerns: {FAM Safety Concerns:60554} Impairments/Disabilities: {FAM Impairments/Disabilities:58420} Nutrition Therapy: Current Nutrition Therapy: {FAM Diet List:99984} Routes of Feeding: {routes of feedin} Liquids: {liquid consistency:46215} Daily Fluid Restriction: {daily fluid restriction:76145} Last Modified Barium Swallow with Video (Video Swallowing Test): {done not done:32927} Treatments at the Time of Hospital Discharge: Respiratory Treatments: Oxygen Therapy: {Therapy; copd oxygen:61131} Ventilator: {FAM Ventilator:56011} Rehab Therapies: {GEN THERAPY DISCIPLINE SCAL:5299782} Weight Bearing Status/Restrictions: {POD WEIGHT BEARIN} Other Medical Equipment (for information only, NOT a DME order): {Assistive Devices DME:50829} Other Treatments: Patient's personal belongings (please select all that are sent with patient): {FAM Patient Belongings:17375} RN SIGNATURE: {E-signature:59712} CASE MANAGEMENT/SOCIAL WORK SECTION Inpatient Status Date: Discharging to Facility/ Agency Name: [facility] Address: [address] [place] [address] Dialysis Facility (if applicable) Name: Address: Dialysis Schedule: Phone: Fax: Comic Artist/Livestock Trucker signature: {E-signature:14774} PHYSICIAN SECTION Name: Mikel Winston Prognosis: {Rehab Prognosis:12404} Condition at Discharge: {Patient Condition:84975} Rehab Potential (if transferring to Rehab): {Rehab Prognosis:73222} Recommended Labs or Other Treatments After Discharge: The individual is being admitted to a nursing facility directly from an [facility] or a unit of a [facility] that is not operated by or licensed by [facility] under section 5119.14 or 5160-3-15.1 5 The individual requires the level of services provided by a nursing facility for the condition for which he or she was treated in the hospital and, Physician Certification: I certify the above information and transfer of Mikel Winston is necessary for the continuing treatment of the diagnosis listed and that she requires {FAM Level of Care:19185} for {greater less than:09079} 30 days. Update Admission H&P: {FAM Changes in H&P:61459} PHYSICIAN SIGNATURE: {E-signature:06119} documented in this encounter [facility] 05-31-2024 Note IMPRESSION: Predominant 2:1 AV block Likely type 2 Right bundle branch block LAFB Poor R Wave progression Electronically Signed On 05-31-2024 10:23:14 EDT by Huy Frederick [facility] 05-31-2024 Plan of care note Problem: [...] integrity is maintained or improved Outcome: Progressing [facility] 05-31-2024 Note OCCUPATIONAL THERAPY [facility] Name/MRN: Mikel Winston ([id number]) Date: 05/31/2024 Orders received for OT evaluation and treat. Per medical chart, pt scheduled for PPM today. Will hold therapy and continue to follow. Dino Coelho, OT [facility] 05-31-2024 Note Formatting of this n ote might be different from the original. Care Management Progress Note Patient now on [address]. Previous noted. NPO-Cardiology following for possible pacemaker. Per therapy evaluation. Recommendation is SNF. I will discuss this with patient today. Length of Stay (Days): 2 GMLOS: No GMLOS Documented [facility] 05-31-2024 Note Formatting of this n ote might be different from the original. Care Management Progress Note Patient now on [address]. Previous noted. NPO-Cardiology following for possible pacemaker. Per therapy evaluation. Recommendation is SNF. I will discuss this with patient today. Length of Stay (Days): 2 GMLOS: No GMLOS Documented [facility] 05-31-2024 Consult note Associated Order (s): IP CONSULT TO CARDIOLOGY [facility] Heart & Vascular [place] [facility] Cardiology /Electrophysiology Consult Note Reason for Consult/Chief Complaint: symptomatic bradycardia, Mobitz type 2 AV block Referring provider: Dr. Marie Established frame assembler: Crystal History of Present Illness: Mikel Winston is a 78 y.o. female who follows Dr. 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 She reports for 2-3 [...] Donaldson MD at 06/01/2024 4:23 PM EDT [facility] [employer] Work Phone: 05-31-2024 Consult note Associated Order (s): IP CONSULT TO CARDIOLOGY [facility] Heart & Vascular [place] [facility] Cardiology /Electrophysiology Consult Note Reason for Consult/Chief Complaint: symptomatic bradycardia, Mobitz type 2 AV block Referring provider: Dr. Marie Established frame assembler: Crystal History of Present Illness: Mikel Winston is a 78 y.o. female who follows Dr. 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 She reports for 2-3 [...] is normal (~3 mmHg). Signed by: Huy rFederick on 04/18/2024 2:01 PM Last Cath 12/27/17 [...] from the original note were not included. [facility] CARDIAC PROGRESSIVE CARE UNIT U [address] [place] [phone] Dept: [phone] This is a 78-year-old woman seen for [...] we should probably transferred her to the [facility] in preparation of the pacemaker on Tuesday RBC documented in this encounter [facility] 05-31-2024 Plan of care note The patient is Moderately Stable - Low risk of patient condition declining or worsening The patient's goals for the shift include no chest pain The clinical goals for the shift include no symptomatic bradycardia Goals met over the shift [facility] 05-30-2024 Plan of care note The patient [...] Goal: Nutritional status is improving Outcome: Progressing [facility] 05-30-2024 Nurse Note Report called to [facility] . Pt and family aware of transport to facility. [facility] 05-30-2024 Note Formatting of this n ote might be different from the original. Business Solution Analyst following case for Discharge Needs. Pt is currently not active with [facility], was discharged 05/09/2024. [facility] 05-30-2024 Note Formatting of this n ote might be different from the original. Business Solution Analyst following case for Discharge Needs. Pt is currently not active with [facility], was discharged 05/09/2024. [facility] 05-30-2024 Note Formatting of this n ote might be different from the original. Care Managment Initial Assessment Date: 05/30/2024 Patient Name: Mikel Winston : 1945 Patient Information Source of Information: Patient Cognition/Language: WFL - Within Functional Limits Permission given to speak with patient equal opportunity representative/caregiver as indicated: Yes (DTR Arnel Jann or (Bharti), ) Confirmation of Payer with patient/family: Yes Payer Name: [facility] : No Confirmation of Primary Care Physician: [...] Daily Living Prescription Coverage: Yes Pharmacy Used: [facility] in [facility] Medication Management: Assistance Type: Dose packaging system Who assists with medication securing and setup?: ZELDA oMrtensen Transportation/Shopping: Assistance Provider Transportation/Shopping Assistance Provider Name: [...] Additional Information: Chart reviewed. Patient admitted to [facility] for treatment of bradycardia. Noted to have possibly been taking too much beta partha at home. Atenolol currently on hold. Regular diet. Cardiology following -plan in place to hold atenolol and monitor. If AV block does not resolve may need pacemaker. If so, will need transferred to [facility] for this procedure. Met with patient at [...] plan: Home with resumption of home care. [facility] did request pt/ot evaluations to Dr. Garza. Lilibeth Laurent RN [facility] 05-30-2024 Note Formatting of this n ote might be different from the original. Care Managment Initial Assessment Date: 05/30/2024 Patient Name: Mikel Winston : 1945 Patient Information Source of Information: Patient Cognition/Language: WFL - Within Functional Limits Permission given to speak with patient equal opportunity representative/caregiver as indicated: Yes (ZELDA Forte or (Bharti), ) Confirmation of Payer with patient/family: Yes Payer Name: [facility] [place]: No Confirmation of Primary Care Physician: Confirmed [...] Daily Living Prescription Coverage: Yes Pharmacy Used: [facility] in [facility] Medication Management: Assistance Type: Dose packaging [...] Additional Information: Chart reviewed. Patient admitted to [facility] for treatment of bradycardia. Noted to have possibly been taking too much beta partha at home. Atenolol currently on hold. Regular diet. Cardiology following -plan in place to hold atenolol and monitor. If AV block does not resolve may need pacemaker. If so, will need transferred to [facility] for this procedure. Met with patient at [...] plan: Home with resumption of home care. [facility] did request pt/ot evaluations to Dr. Garza. Lilibeth Laurent RN T [facility] 05-30-2024 Consult note Associated Order (s): IP CONSULT TO CARDIOLOGY Images from the original note were not included. [facility] CARDIAC PROGRESSIVE CARE UNIT PCU [address] [place] [phone] Dept: [phone] This is a 78-year-old woman seen for [...] we should probably transferred her to the [facility] in preparation of the pacemaker on Tuesday RBC T [facility] 05-30-2024 Plan of care note The patient is Moderately Stable - Low risk of patient condition declining or worsening The patient's goals for the shift include to feel better/rest The clinical goals for the shift include stable heart rate T [facility] 05-29-2024 History and physical note History and Physical [facility] Mikel Winston : 1945 AGE 78 [...] TueMay 29, 2024 6:28 PM (Active) Physician Circular Saw Edge Fuser: Lakeisha Carter PA-C, starting on TueMay 29, [...] 05/29/2024 684 QTC Interval 05/29/2024 517 P [place] 05/29/2024 -26 QRS [place] 05/29/2024 -59 T Wave [place] 05/29/2024 142 IA Interval 05/29/2024 266 NT PRO BNP 05/29/2024 3,820 (H) SARS-CoV-2 05/29/2024 Not Detected Respiratory Syncytial Vi* 05/29/2024 Not Detected Influenza A 05/29/2024 Not Detected Influenza B 05/29/2024 Not Detected MAGNESIUM 05/29/2024 1.9 EKG Encounter Date: 05/29/24 ECG 12 lead (Now) Result Value Heart Rate 34 QRSD Interval 177 QT Interval 684 QTC Interval 517 P [place] -26 QRS [place] -59 T Wave [place] 142 IA Interval 266 Impression Sinus bradycardia Prolonged IA interval Right bundle branch block LVH with [...] pharmacologic and mechanical contraindicated 05/29/2024 Mikel Winston [id number] Any scheduled follow up appointments Future Appointments Date Time Provider Department Center 03/27/2025 1:00 PM [facility] Contact Information Primary Emergency Contact: Arnel Forte Mobile Relation: Child Secondary Emergency Contact: Russell Winston Mobile Relation: Child Portions of this note may be electronically transcribed. Please forward a copy of this H&P to the primary care physician. [facility] [employer] Work Phone: 05-29-2024 Note [facility] [employer] [facility] 05-29-2024 History and physical note History and Physical [facility] Mikel Winston : 1945 AGE 78 y.o. YEARS Note Date 05/29/2024 Primary Care Physician:KOMAL COHN DO Current Providers as of 05/29/2024 PCP: Kmoal Cohn DO Referring Provider: not found, starting on TueMay 29, 2024 12:00 AM Attending Provider: Kimi Polk DO, starting on TueMay 29, 2024 6:33 PM (Active) Registered Nurse: Yolanda Ag RN, starting on TueMay 29, 2024 6:28 PM (Active) Physician Circular Saw Edge Fuser: Lakeisha Carter PA-C, starting on TueMay 29, [...] 05/29/2024 684 QTC Interval 05/29/2024 517 P [place] 05/29/2024 -26 QRS [place] 05/29/2024 -59 T Wave [place] 05/29/2024 142 IA Interval 05/29/2024 266 NT PRO BNP 05/29/2024 3,820 (H) SARS-CoV-2 05/29/2024 Not Detected Respiratory Syncytial Vi* 05/29/2024 Not Detected Influenza A 05/29/2024 Not Detected Influenza B 05/29/2024 Not Detected MAGNESIUM 05/29/2024 1.9 EKG Encounter Date: 05/29/24 ECG 12 lead (Now) Result Value Heart Rate 34 QRSD Interval 177 QT Interval 684 QTC Interval 517 P [place] -26 QRS [place] -59 T Wave [place] 142 IA Interval 266 Impression Sinus bradycardia Prolonged IA interval Right bundle branch block LVH with [...] pharmacologic and mechanical contraindicated 05/29/2024 Mikel Winston [id number] Any scheduled follow up appointments Future Appointments [...] primary care physician. documented in this encounter [facility] 05-29-2024 Emergency department Note Emergency Department Encounter [facility] ED Patient: Mikel Winston : 1945 Date [...] by me: Sinus bradycardia, rate 34, prolonged IA interval, old inferior infarct Labs with elevated troponin, hemoglobin 10.1 similar to prior. BNP elevated at 3820. BUN/creatinine consistent with baseline. Consulted cardiology and they were comfortable with the patient being admitted at [facility] as long as she was hemodynamically stable. Patient has not had any hypotension or tachypnea here. She appears clinically well aside from her bradycardia. Will admit to [facility]. Diagnostics interpreted by me: EKG; see [...] dictating provider for clarification.) Kimi Polk DO [facility] Kimi Polk DO 06/01/24 0717 EMERGENCY DEPARTMENT [...] 10 min Stress: Stress Concern Present (01/28/2024) [place] [place] [employer] - Occupational Stress Questionnaire Feeling of Stress : To some extent Social Connections: Moderately Integrated (01/28/2024) Social Connection and Isolation Panel [NHANES] Frequency of Communication with Friends and Family: More than three times a week Frequency of Social Gatherings with Friends and Family: More than three times a week Attends [employer] Services: More than 4 times per year [...] Response: Oriented Best Motor Response: Follows commands [place] Coma Scale Score: 15 PHYSICAL EXAM ED [...] In compliance with this authorization, please visit www.fda.gov/media/064881/download or www.fda.gov/media/829962/download to access the applicable information sheets. MAGNESIUM [...] Lab workup results: Initial troponin 0.124, BNP 8110-3504 x 4 months ago. Creatinine 2.01 which [...] In compliance with this authorization, please visit www.fda.gov/media/046456/download or www.fda.gov/media/138403/download to access the applicable information sheets. MAGNESIUM [...] able to be admitted to medicine at [facility] as long as she is hemodynamically stable and is not near syncopal. Will reassess in the a.m. to determine need for transfer to [facility]. Patient be admitted to medicine with [...] 7:05 AM EDT documented in this encounter [facility] 05-29-2024 Physician Emergency department Note Emergency Department Encounter [facility] ED Patient: Mikel Winston : 1945 Date [...] by me: Sinus bradycardia, rate 34, prolonged IA interval, old inferior infarct Labs with elevated troponin, hemoglobin 10.1 similar to prior. BNP elevated at 3820. BUN/creatinine consistent with baseline. Consulted cardiology and they were comfortable with the patient being admitted at [facility] as long as she was hemodynamically stable. Patient has not had any hypotension or tachypnea here. She appears clinically well aside from her bradycardia. Will admit to [facility]. Diagnostics interpreted by me: EKG; see [...] [employer] Kimi Polk DO 06/01/24 0717 [facility] [employer] Phone: 05-29-2024 Physician Emergency department Note EMERGENCY [...] 10 min Stress: Stress Concern Present (01/28/2024) [place] [place] [employer] - Occupational Stress Questionnaire Feeling of Stress : To some extent Social Connections: Moderately Integrated (01/28/2024) Social Connection and Isolation Panel [NHANES] Frequency of Communication with Friends and Family: More than three times a week Frequency of Social Gatherings with Friends and Family: More than three times a week Attends [employer] Services: More than 4 times per year [...] Response: Oriented Best Motor Response: Follows commands [place] Coma Scale Score: 15 PHYSICAL EXAM ED [...] In compliance with this authorization, please visit www.fda.gov/media/069254/download or www.fda.gov/media/076471/download to access the applicable information sheets. MAGNESIUM [...] Lab workup results: Initial troponin 0.124, BNP 5480-4320 x 4 months ago. Creatinine 2.01 which [...] In compliance with this authorization, please visit www.fda.gov/media/432089/download or www.fda.gov/media/343938/download to access the applicable information sheets. MAGNESIUM [...] able to be admitted to medicine at [facility] as long as she is hemodynamically stable and is not near syncopal. Will reassess in the a.m. to determine need for transfer to [facility]. Patient be admitted to medicine with [...] Polk DO at 06/01/2024 7:05 AM EDT [facility] 04-27-2024 Note HNO ID: [id number] Author: KOMAL COHN DO Service: ? Author Type: Physician Type: Progress Notes Filed: 05/06/2024 17:10 Note Text: [facility] Komal Cohn DO [address] [place] [address] Date of Evaluation: 04/27/2024 Patient Name: Mikel [...] by the patient and a relative. No mash processing operator was used. Neck Pain Pertinent negatives include [...] Extraocular movements int (more content not included)... [facility] 04-27-2024 History of Present illness Narrative Images from the original note were not included. [facility] [address] [place] [address] Date of Evaluation: 04/27/2024 Patient Name: Mikel [...] by the patient and a relative. No mash processing operator was used. Neck Pain Pertinent negatives include [...] ckd, without long-term current use of insulin ([facility]) - , ICD10: E11.22,N18.4 - Controlled [...] kidney disease) stage 4, GFR 15-29 ml/min ([facility]) - ICD9: 585.4, ICD10: N18.4 - [...] 2024 4:33 PM documented in this encounter [facility] 04-18-2024 Miscellaneous Notes Good news. Her aortic valve stenosis is not severe, moderate. Her LV systolic functions is still normal. As long as she is feeling okay we can simply follow this. documented in this encounter [facility] 04-18-2024 Progress note Formatting of t his note might be different from the original. Good news. Her aortic valve stenosis is not severe, moderate. Her LV systolic functions is still normal. As long as she is feeling okay we can simply follow this. [facility] 04-13-2024 Telephone encounter Note Patient called requesting the following refill Refill(s) Requested: Requested Prescriptions Pending Prescriptions Disp Refills levothyroxine (SYNTHROID) 50 mcg tablet [Pharmacy Med Name: LEVOTHYROXINE 50 MCG TABLET] 90 tablet 1 Sig: take 1 tablet by mouth every day ALLERGIES Allergen Reactions Codeine Hives, Rash Codeine Sulfate Unknown (home) [phone] (cell) Last Office Visit Date: 03/16/2024 Last Distance Health Visit: Visit date not found Future Appointment: 04/13/2024 The patients preferred pharmacy has been captured for this encounter? yes Request is for script(s) to be escript to pharmacy. Grace Linda LPN [facility] 04-13-2024 Miscellaneous Notes Patient called requesting the following refill Refill(s) Requested: Requested Prescriptions Pending Prescriptions Disp Refills levothyroxine (SYNTHROID) 50 mcg tablet [Pharmacy Med Name: LEVOTHYROXINE 50 MCG TABLET] 90 tablet 1 Sig: take 1 tablet by mouth every day ALLERGIES Allergen Reactions Codeine Hives, Rash Codeine Sulfate Unknown (home) [phone] (cell) Last Office Visit Date: 03/16/2024 Last Distance Health Visit: Visit date not found Future Appointment: 04/13/2024 The patients preferred pharmacy has been captured for this encounter? yes Request is for script(s) to be escript to pharmacy. Grace Linda LPN documented in this encounter [facility] 04-10-2024 Telephone encounter Note Spoke with the patient who advised she is not taking the Citalopram. States she is taking the Lasix PRN and also needs a refill on Januvia [facility] 04-10-2024 Miscellaneous Notes Spoke with the patient who advised she is not taking the Citalopram. States she is taking the Lasix PRN and also needs a refill on Januvia documented in this encounter [facility] 03-22-2024 Telephone encounter Note Order has been mailed Nanette Nelson [facility] 03-22-2024 Miscellaneous Notes Order has been mailed Nanette Nelson Please mail plaquard rx to patient. Thanks Please mail the order for the placard to the patient, thanks Pt's escort vehicle driver, Fernanda Keith called to request a handicap placcard. When signed, put in mail to the Pt. Sylvia Monroy documented in this encounter [facility] 03-22-2024 Telephone encounter Note Please mail plaquard rx to patient. Thanks [facility] 03-21-2024 Telephone encounter Note PC to patient. Reviewed PARESH recommendations. She verbalized understanding. [facility] 03-21-2024 Miscellaneous Notes PC to patient. Reviewed [...] panel. Thank you documented in this encounter [facility] 03-21-2024 Telephone encounter Note PC to patient. Reviewed results. Her leg swelling is down. Her weight 3 days ago was 190 lbs, today 195 lbs. No more SOB than usual. Saw PCP 03/16 for cellulitis on her leg, currently on bactrim and has ointment for legs. Will repeat labs on Tuesday. She verbalized understanding. [facility] 03-21-2024 Telephone encounter Note Please call her [...] for the basic metabolic panel. Thank you [facility] 03-19-2024 Telephone encounter Note Please mail the order for the placard to the patient, thanks [facility] 03-16-2024 Instructions Marilin Rosales LPN - 03/16/2024 3:47 PM EDT Can take benadryl OTC for itching documented in this encounter [facility] 03-16-2024 Note HNO ID: [id number] Author: KOMAL COHN DO Service: ? Author Type: Physician Type: Progress Notes Filed: 03/20/2024 21:06 Note Text: [facility] Medicine [place] Komal Cohn DO [address] [place] [address] Date of Evaluation: 03/16/2024 Patient Name: Mikel [...] history is provided by the patient. No mash processing operator was used. Edema This is a new [...] and ROS obtained (more content not included)... [facility] 03-16-2024 History of Present illness Narrative Images from the original note were not included. [facility] Medicine [facility] [address] [place] [address] Date of Evaluation: 03/16/2024 Patient Name: Mikel Winston : 1945 Chief Complaint: Patient presents with: Edema: Started swelling and seeping Right leg May - Left leg started on Nursing Intake: There are no exam notes on file for this visit. Subjective Ms. Winston is a 78 year old female who presents with the following complaint(s): The history is provided by the patient. No mash processing operator was used. Edema This is a new [...] 2024 8:27 AM documented in this encounter [facility] 03-15-2024 Telephone encounter Note [facility] 03-15-2024 Telephone encounter Note Pt's escort vehicle driver, Fernanda Keith called to request a handicap placcard. When signed, put in mail to the Pt. Sylvia Monroy [facility] 03-14-2024 History of Present illness Narrative Images from the original note were not included. [facility] CARDIOLOG[facility] [address] [facility] [facility] [address] [facility] [address] Dept: [phone] Dept Loc: [phone] DATE of SERVICE:03/14/24 TIME of SERVICE: 1:23 [...] cardiac ultrasound: Ordering a formal transthoracic echocardiogram Clinical Appeals Reviewer present for focused cardiac ultrasound: Not applicable [...] on these tests. documented in this encounter [facility] 03-14-2024 Note HNO ID: [id number] Author: LATONYA ROSADO RN Service: ? Author [...] screening tool questions performed? No N/A Concerns: Admissions Counselor plan for next outreach: Will follow-up if needed Signature: Latonya Rosado RN March 14, 2024 [facility] 03-14-2024 History of Present illness Narrative [...] screening tool questions performed? No N/A Concerns: Admissions Counselor plan for next outreach: Will follow-up if needed Signature: Latonya Rosado RN March 14, 2024 documented in this encounter [facility] 03-14-2024 Note Patient Outreach (AG ACM) MIKEL WINSTON ([id number]) 1945 F Date Time Provider Department 03/14/24 LATONYA ROSADO [facility] During your visit today, we recorded [...] screening tool questions performed? No N/A Concerns: Admissions Counselor plan for next outreach: Will follow-up if [...] [R60.0] 05/03/2022 Chronic kidney disease, stage 3b ([facility]) [N18.32] 12/01/2022 Acute deep vein thrombosis (DVT) of other speci*12/01/2022 Congestive heart failure, unspecified HF chroni*12/01/2022 Angina at rest ([facility]) [I20.89] 12/01/2022 Class 1 obesity with body mass index (BMI) of 3*12/01/2022 Systolic murmur [R01.1] 12/26/2022 Platelets decreased ([facility]) [D69.6] 12/26/2022 Depression [F32.A] 12/11/2023 Encounter Status:Closed by LATONYA ROSADO on 03/14/24 [facility] 02-29-2024 Note HNO ID: [id number] Author: LATONYA ROSADO RN Service: ? Author [...] screening tool questions performed? No N/A Concerns: Admissions Counselor plan for next outreach: Will follow-up 2 weeks Signature: Latonya Rosado RN February 29, 2024 [facility] 02-29-2024 History of Present illness Narrative AG TRANSITIONAL CARE MANAGEMENT (TCM) FOLLOW-UP NOTE Provider Action/FYI: Patient identified by name and date of : YES Spoke to: patient Diagnosis: N/A Summary: Patient's cellulitis getting better. Patient feeling well. Patient completed TCM visit 02/27/24. No needs for PCP at this time. Health leads screening tool questions performed? No N/A Concerns: Admissions Counselor plan for next outreach: Will follow-up 2 weeks Signature: Latonya Rosado RN February 29, 2024 documented in this encounter [facility] 02-29-2024 Note Patient Outreach (AG ACM) MIKEL WINSTON ([id number]) 1945 F Date Time Provider Department 02/29/24 LATONYA ROSADO [facility] During your visit today, we recorded [...] screening tool questions performed? No N/A Concerns: Admissions Counselor plan for next outreach: Will follow-up 2 [...] Encounter Status:Closed by LATONYA ROSADO on 02/29/24 [facility] 02-27-2024 Note HNO ID: [id number] Author: KOMAL COHN, DO Service: ? Author [...] 2 business days post-discharge Summary Discharged from: [facility] Admit Date: 01/28/24 Admitted for: cellulitis of [...] Cohn DO, February 27, 2024 3:54 PM [facility] 02-27-2024 History of Present illness Narrative Transitional Care Management TCM Eligibility Documentation Program: Transitional Care Management Status: Enrolled Effective Dates: 02/15/2024 - present Responsible Staff: Latonya Rosado RN Discharge date: 02/13/2024 (Program start) Date of initial contact: 02/15/2024 Initial contact Target status: Successful; Contact made within 2 business days post-discharge Summary Discharged from: [facility] Admit Date: 01/28/24 Admitted for: cellulitis of [...] 2024 3:54 PM documented in this encounter [facility] 02-15-2024 Note HNO ID: [id number] Author: LATONYA ROSADO, RN Service: ? Author Type: Registered Nurse Type: Progress Notes Filed: 02/15/2024 11:45 Note Text: TRANSITIONAL CARE MANAGEMENT (TCM) COMMUNITY MONITORING PROGRAM - [place] Provider Action/FYI: TCM appointment 02/27/24 Started on . Request for prescription sent to PCP. SUMMARY: Pt discharged from [facility] on 02/13/24. Admitted for: Cellulitis Patient seen Inpatient THUAN Visit? N/A. Patient seen ICARE Program? No. Contact made with patient: Yes Hi my name is Latonya Rosado RN and I am calling from the [facility] on behalf of your PCP, Komal [...] a medication review completed? Yes, Meds from [facility]. SOCIAL: We would like to make sure [...] like to speak with a social work retail team member to help give you support for any [...] (or call on the way if possible). [facility] 02-15-2024 History of Present illness Narrative TRANSITIONAL CARE MANAGEMENT (TCM) COMMUNITY MONITORING PROGRAM - [place] Provider Action/FYI: TCM appointment 02/27/24 Started on . Request for prescription sent to PCP. SUMMARY: Pt discharged from [facility] on 02/13/24. Admitted for: Cellulitis Patient seen Inpatient THUAN Visit? N/A. Patient seen ICARE Program? No. Contact made with patient: Yes Hi my name is Latonya Rosado RN and I am calling from the [facility] on behalf of your PCP, Komal Cohn, [...] a medication review completed? Yes, Meds from [facility]. SOCIAL: We would like to make sure [...] like to speak with a social work retail team member to help give you support for any [...] telephone visit with your PCP. ACTION TAKEN: [facility] Primary Care Provider Visit Scheduled: Yes - [...] way if possible). documented in this encounter [facility] 02-15-2024 Note HNO ID: [id number] Author: GOGO BARBOSA RN Service: ? Author Type: Registered Nurse Type: Progress Notes Filed: 02/15/2024 09:23 Note Text: Discharged from [facility] on 02/13/2024 to home. PCC notified. Gogo Barbosa RN February 15, 2024 [facility] 02-15-2024 History of Present illness Narrative Discharged from [facility] on 02/13/2024 to home. PCC notified. Gogo Barbosa RN February 15, 2024 documented in this encounter [facility] 02-15-2024 Note Patient Outreach (AG ACM) MIKEL WINSTON ([id number]) 1945 F Date Time Provider Department 02/15/24 GOGO BARBOSA [facility] During your visit today, we recorded the following information about you: Gogo Barbosa RN 02/15/2024 9:23 AM Signed Discharged from [facility] on 02/13/2024 to home. PCC notified. Gogo Barbosa RN February 15, 2024 Allergies As of Date: 02/15/2024 Noted Allergy Reaction CODEINE 02/24/2016 4 - Hives 2 - Rash CODEINE SULFATE 06/13/2018 16 - Unknown Date Reviewed: 01/06/2024 Reviewed by: Arnel Govea LPN - Fully Assessed Reason for Visit: Transition Of Care [4074] Cmt: Discharged from [facility] to Home Prescriptions as of 02/15/2024 - [...] Encounter Status:Closed by GOGO BARBOSA on 02/15/24 [facility] 02-15-2024 Note Patient Outreach (AG ACM) MIKEL WINSTON ([id number]) 1945 F Date Time Provider Department 02/15/24 [facility] During your visit today, we recorded the following information about you: Latonya Rosado, RN 02/15/2024 11:45 AM Signed TRANSITIONAL CARE MANAGEMENT (TCM) COMMUNITY MONITORING PROGRAM - [place] Provider Action/FYI: TCM appointment 02/27/24 Started on . Request for prescription sent to PCP. SUMMARY: Pt discharged from [facility] on 02/13/24. Admitted for: Cellulitis Patient seen Inpatient THUAN Visit? N/A. Patient seen ICARE Program? No. Contact made with patient: Yes Hi my name is Latonya Rosado, JANES and I am calling from the [facility] on behalf of your PCP, [...] a medication review completed? Yes, Meds from [facility]. SOCIAL: We would like to make sure [...] like to speak with a social work retail team member to help give you support for any [...] Fully Assessed Re (more content not included)... [facility] 02-08-2024 Note HNO ID: [id number] Author: SUE CLAUDIO RN Service: ? Author Type: Registered Nurse Type: Progress Notes Filed: 02/08/2024 10:51 Note Text: TRANSITION CARE MANAGEMENT (TCM) DISCHARGE TO POST ACUTE FACILITY POST ACUTE TRANSFER SUMMARY: -Pt discharged from [facility] on 02/02/24. -Post Acute Facility Admitted to SNF. Discharging to Facility/ Agency Name: [facility] Address:[address] [place] [address] [place] [address] -Admitted for: LLE Cellulitis Cystitis [facility] 02-08-2024 History of Present illness Narrative TRANSITION CARE MANAGEMENT (TCM) DISCHARGE TO POST ACUTE FACILITY POST ACUTE TRANSFER SUMMARY: -Pt discharged from [facility] on 02/02/24. -Post Acute Facility Admitted to SNF. Discharging to Facility/ Agency Name: [facility] Address:[place] [address] [place] [address] -Admitted for: LLE Cellulitis Cystitis documented in this encounter [facility] 02-08-2024 Note Patient Outreach (AG ACM) MIKEL WINSTON ([id number]) 1945 F Date Time Provider Department 02/08/24 SUE CLAUDIO [facility] During your visit today, we recorded the following information about you: Sue Claudio RN 02/08/2024 10:51 AM Signed TRANSITION CARE MANAGEMENT (TCM) DISCHARGE TO POST ACUTE FACILITY POST ACUTE TRANSFER SUMMARY: -Pt discharged from [facility] on 02/02/24. -Post Acute Facility Admitted to SNF. Discharging to Facility/ Agency Name: [facility] Address:[place] [address] [place] [address] -Admitted for: LLE Cellulitis Cystitis Allergies As of Date: 02/08/2024 Noted Allergy Reaction CODEINE 02/24/2016 4 - Hives 2 - Rash CODEINE SULFATE 06/13/2018 16 - Unknown Date Reviewed: 01/06/2024 Reviewed by: Arnel Govea LPN - Fully Assessed Reason for Visit: Transition Of Care [4074] Cmt: Tarana D/C to [facility] 02/02/24 Prescriptions as of 02/08/2024 - atenolol [...] Encounter Status:Closed by SUE CLAUDIO on 02/08/24 [facility] 02-02-2024 Nurse Note Report called to Mark at [facility]. [facility] 02-02-2024 Nurse Note Report called to Mark at [facility]. 01/29/24 2350, Pt having SOB expiratory wheezing,I gave her a PRN P.O LASIX,Dr Morillo notified,he put an order for breathing treatment an chest x-ray. documented in this encounter [facility] 02-02-2024 Miscellaneous Notes Patient Choice Patient Name: MIKEL WINSTON Date of : 1945 All Providers Sent Referral Name: [facility] Phone: [phone] Address: [address] [place] [address] S/W, Transport Transport set via [facility] at 230p to [facility]. Facility notified via [employer] of time. raiser helper provided report number. I did visit patient in her room to notify. Message Left for daughter Arnel as well. Messaged GRAIN MANAGER to send dc packet to [facility]. . Discharge med list transmitted to [facility] via [facility] per [facility] request. 7000 previously completed in [facility]. Facility is aware Images from the original note were not included. Care Management Progress Note Anticipate discharge to [facility] today.. . Discharge Milestones and Delays Expected date/time: 02/01/2024 Anticipated medical readiness: 02/01/2024 Expected discharge disposition: Care Home Facility Discharge Milestones Place discharge order Complete [...] patient that plan was to discharge to [facility] probably tomorrow. . 7000 was entered into [facility] for the [facility]- [facility] per [facility] request. Facility is aware. Tasked [facility] to complete 7000. Updated [facility] via careport that per attending, anticipate dc tomorrow. Per [facility] auth is good through 02/05. . SDOH [...] can talk with RN, hospitalist, and hospital quality reviewer if needing more clarification on this. Epic chat sent to quality reviewer. No other SW needs noted. Discharge plan is SNF. HCL to sign off. Please re-consult if needed. [facility] is able to accept. Did request that they submit for insurance auth. . [facility] request. Await review and response regarding ability to accept. [facility] notified. Spoke with patient. She is in agreement with snf referral. Did provide with SNF list. Referral placed to [facility] per her request .. Images from the [...] mgmt discharge readiness Clinical Stability Diagnostic Workup Cafeteria Assistant Recommendations Facility Choice Selection Test Results PT discharge readiness OT discharge readiness OUTDOOR EDUCATION TEACHER discharge readiness Patient Education Complete Expected Discharge [...] Continuing to await therapy evals and recommendations. Business Solution Analyst following case for Discharge Needs. Images from the original note were not included. Care Management Progress Note US of lower ext pending for this morning. Urine culture pending. Remains on iv antibiotics. Pt/ot ordered and pending. Discharge plan is pending therapy evals and recommendations, wound care and antibiotic needs. Tentative discharge plan [facility] when medically stable.. 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 EDUCATION TEACHER discharge readiness Patient Education Complete Expected Discharge [...] Limits Permission given to speak with patient equal opportunity representative/caregiver as indicated: Confirmation of Payer with patient/family: Yes Payer Name: [place] Medicare / [facility] : No Confirmation of Primary Care Physician: [...] Jalen Pham RN documented in this encounter [facility] 02-02-2024 Note Formatting of this n ote might be different from the original. Patient Choice Patient Name: MIKEL WINSTON Date of : 1945 All Providers Sent Referral Name: [facility] Phone: [phone] Address: [address] [place] [address] [facility] 02-02-2024 Note Formatting of this n ote might be different from the original. Patient Choice Patient Name: MIKEL WINSTON Date of : 1945 All Providers Sent Referral Name: [facility] Phone: [phone] Address: [address] [place] [address] [facility] 02-02-2024 Note Formatting of this n ote might be different from the original. S/W, Transport Transport set via [facility] at 230p to [facility]. Facility notified via [employer] of time. raiser helper provided report number. I did visit patient in her room to notify. Message Left for neymar Mortensen as well. [facility] 02-02-2024 Note Formatting of this n ote might be different from the original. S/W, Transport Transport set via [facility] at 230p to [facility]. Facility notified via [employer] of time. raiser helper provided report number. I did visit patient in her room to notify. Message Left for neymar Mortensen as well. [facility] 02-02-2024 History of Present illness Narrative Images from the original note were not included. OCCUPATIONAL THERAPY [facility] Hospital Treatment Note Name/MRN: Mikel Winston ([id number]) Date of : 1945 Age: 78 y.o. Room[facility]Bed: [facility] B Visit #: 2 out of 8 visits Discharge Recommendation: Care Home Facility Equipment Needed: No Prior Level of [...] original note were not included. PHYSICAL THERAPY [facility] Treatment Note Name/MRN: Mikel Winston ([id number]) Date of : 1945 Age: 78 y.o. Room[facility]Bed: [facility] B Visit #: 2 out of 5 visits Discharge Recommendation: Care Home Facility Equipment Needed: No (pt reports having [...] on ceftriaxone Right LE cellulitis- on zyvox Enub-eev-nvayu gap metabolic acidosis BARRY on CKD stage [...] Terence Gonzalez MD Division of Hospitalist Medicine [facility] Progress Note Subjective/ 78 [...] any questions or concerns. Le Dobson APRN, INDUSTRIAL ENGINEERING MANAGER [facility] [phone] Associated attestation - Liss Erickson MD - 02/01/2024 1:49 PM EDT I have reviewed the above assessment and plan with the INSTRUMENT TESTER. I agree with above note. Cr appears to be plateauing. D/w Dr. Gonzalez. Low dose diuresis. Images from the original note were not included. OCCUPATIONAL THERAPY [facility] Treatment Note Name/MRN: Mikel Winston ([id number]) Date of : 1945 Age: 78 y.o. Room[facility]Bed: [facility] B Visit #: 1 out of 8 visits Discharge Recommendation: Care Home Facility Equipment Needed: No Prior Level of [...] 23 Minutes (2 ADLs) Margaret Ross OT [facility] Note Subjective/ 78 y.o. [...] any questions or concerns. Le Dobson APRN, INDUSTRIAL ENGINEERING MANAGER [facility], [facility] [phone] Images from the original note were not included. PHYSICAL THERAPY [facility] Treatment Note Name/MRN: Mikel Winston ([id number]) Date of : 1945 Age: 78 y.o. Room/Bed: X2-944/Q3-152 B Visit #: 1 out of 5 visits Discharge Recommendation: Care Home Facility Equipment Needed: No (pt reports having [...] on ceftriaxone Right LE cellulitis- on zyvox Rbve-jio-mnaop gap metabolic acidosis BARRY on CKD stage [...] original note were not included. PHYSICAL THERAPY [facility] Initial Evaluation Name/MRN: Mikel Winston ([id number]) Evaluation Date: 01/30/2024 Date of : 1945 Admission Date: 01/28/2024 4:25 PM Age: 78 y.o. Room/Bed: B4-458/B4-458 B Discharge Recommendation: Care Home Facility Equipment Needed: No (pt reports having [...] artery disease involving coronary bypass graft of [place] heart without angina pectoris 09/30/2022 Nonrheumatic aortic [...] Responsibilities: Independent Receives Help From: None Active Inclusion Special Education Teacher: No Prior Level of Function ADL Assistance: [...] of Care supervision is transferred to a [facility] Physical Therapist. Goals and/or treatment plan was established in collaboration with patient/family/other representatives. Images from the original note were not included. OCCUPATIONAL THERAPY [facility] Initial Evaluation Name/MRN: Mikel Winston ([id number]) Evaluation Date: 01/30/2024 Date of : 1945 Admission Date: 01/28/2024 4:25 PM Age: 78 y.o. Room/Bed: [facility] B Discharge Recommendation: Care Home Facility Equipment Needed: No Assessment IMPRESSION: Pt [...] List Diagnosis Date Noted Angina at rest ([facility]) 12/26/2017 Cellulitis of right lower extremity 01/28/2024 BARRY (acute kidney injury) ([facility]) 11/18/2022 UTI (urinary tract infection) 11/18/2022 Coronary artery disease involving coronary bypass graft of [place] heart without angina pectoris 09/30/2022 Nonrheumatic aortic valve stenosis 09/30/2022 Essential hypertension 09/30/2022 Dyslipidemia 09/30/2022 Generalized edema 01/27/2022 Diabetes ([facility]) 01/27/2022 Medical Precautions: No active isolations [...] Responsibilities: Independent Receives Help From: None Active Inclusion Special Education Teacher: No Prior Level of Function ADL Assistance: [...] of Care supervision is transferred to a [facility] Services Occupational Therapist. Goals and/or treatment plan was established in collaboration with patient/family/other representatives. Hospitalist Progress Note 01/30/2024 [phone]: Please page me ([phone]) for patient care issues. [phone]: Please page [facility] Hospitalist for any issues. Subjective: Admit [...] Right LE cellulitis Vancomycin, pharmacy to dose Lcnb-fdf-gddxu gap metabolic acidosis BARRY on CKD stage [...] Relation: Child Shemar Regalado DO [facility] Services/[facility] PAGER: Epic chat [facility] Subjective/ 78 [...] with any questions or concerns. Le Dobson, SHOVEL ENGINEER, INDUSTRIAL ENGINEERING MANAGER [facility], [employer] [facility] [phone] Associated attestation - Liss Erickson MD - 01/30/2024 4:35 PM EDT I have reviewed the above assessment and plan with the INSTRUMENT TESTER. I agree with above note. BARRY improving. Renal USG negative Nutrition rescreen complete. Pt assigned a level one for nutrition care. Hospitalist Progress Note 01/29/2024 [phone]: Please page me ([phone]) for patient care issues. [phone]: Please page [facility] Hospitalist for any issues. Subjective: Admit Date: 01/28/2024 PCP: KOMAL COHN DO Room#: B4-350/B4-340 B Interval History: patient admitted for Acute [...] Right LE cellulitis Vancomycin, pharmacy to dose Glny-xtm-gtbog gap metabolic acidosis BARRY on CKD stage [...] DO Division of Hospitalist Medicine Inpatient Medical Services/[facility] PAGER: Epic chat Images from the original note were not included. PHYSICAL THERAPY [facility] Name/MRN: Mikel Winston ([id number]) Date: 01/29/2024 Chart reviewed. Pt with pending Duplex. Will await result and attempt as appropiate Siddharth Irving PT Images from the original note were not included. Speech-Language Pathology SPEECH LANGUAGE PATHOLOGY [facility] Bedside Swallow Evaluation Patient Name: Mikel Winston Evaluation Date: 01/29/2024 Date of : 1945 Admission Date: 01/28/2024 4:25 PM Age: 78 y.o. Room/Bed: [facility] B IMPRESSION: No s/s oropharyngeal dysphagia. No overt clinical s/s pulmonary compromise with PO. Risk factors for aspiration include some missing teeth. RECOMMENDATION: Recommend Regular solids and Thin liquids and meds as tolerated and the following precautions: - Upright positioning for all PO intake - Slow rate of intake - Small bites/sips No skilled acute OUTDOOR EDUCATION TEACHER indicated at this time. Please reconsult should changes occur. Subjective Patient alert and cooperative. Seen upright in bed. Answers all basic questions with clear vocal quality. Follows all basic commands. No visitors at bedside. Spoke with JANES Lagunas who cleared pt to be evaluated. Dysphagia History: No history of OUTDOOR EDUCATION TEACHER services in EMR with retrospective chart review [...] List Diagnosis Date Noted Angina at rest ([facility]) 12/26/2017 Cellulitis of right lower extremity 01/28/2024 BARRY (acute kidney injury) ([facility]) 11/18/2022 UTI (urinary tract infection) 11/18/2022 Coronary artery disease involving coronary bypass graft of [place] heart without angina pectoris 09/30/2022 Nonrheumatic aortic valve stenosis 09/30/2022 Essential hypertension 09/30/2022 Dyslipidemia 09/30/2022 Generalized edema 01/27/2022 Diabetes ([facility]) 01/27/2022 History of Present Illness: Mikel [...] Stated Goal: To go home. 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 OCCUPATIONAL THERAPY [facility] Name/MRN: Mikel Winston ([id number]) Date: 01/29/2024 Therapy eval and treat orders received. Chart review complete. Per chart review, pt with pending BLE duplex. Will await results and potential anticoagulation needs prior to initiation of therapy. Quinn Alcala OT Pharmacy to Dose Vancomycin - Progress Note Recent Labs 01/28/24 1709 01/29/24 0536 BUN 33* 30* CREATININE 1.70* 1.68* Lab Results Component Value Date VANCORANDOM 16.4 01/29/2024 [facility] 27.0 (H) 12/19/2021 Doses, serum creatinine, and vancomycin levels interfaced automatically to NeuroPace and data has been analyzed and interpreted. [...] via Secure Chat documented in this encounter [facility] 02-02-2024 Note Formatting of this n ote might be different from the original. Messaged [facility] to send dc packet to [facility]. . [facility] 02-02-2024 Note Formatting of this n ote might be different from the original. Messaged [facility] to send dc packet to [facility]. . [facility] 02-02-2024 Note Formatting of this n ote might be different from the original. Discharge med list transmitted to [facility] via Careport per [facility] request. 7000 previously completed in [facility]. Facility is aware [facility] 02-02-2024 Note Formatting of this n ote might be different from the original. Discharge med list transmitted to [facility] via Careport per [facility] request. 7000 previously completed in [facility]. Facility is aware [facility] 02-02-2024 Note [facility] 02-02-2024 Hospital course Narrative Discharge Summary Mikel [...] zyvox and ceftriaxone to complete the course. Tmah-qcr-wurmb gap metabolic acidosis- improved Acute renal insuffiencey [...] Your Medications These medications were sent to [facility] [address] [facility] [id number] Hours: Tuesday to Tuesday 10 am to 6 pm amoxicillin-clavulanate 875-125 MG tablet linezolid 600 MG tablet SITagliptin 25 MG tablet DIET: Adult diet Regular; 3 carb choices (45 gm/meal) ACTIVITY: No restriction. COMPLEXITY OF FOLLOW UP: [x] Moderate Complexity: follow up within 7-14 calendar days (99957) [] Severe Complexity: follow up within 7 calendar days (92688) FOLLOW UP TESTING, PENDING RESULTS OR REFERRALS AT TRANSITIONAL CARE VISIT: [x] Yes [] No PENDING STUDIES: DISPOSITION: Skilled Facility FACILITY/HOME CARE AGENCY NAME: Follow up with Liss Erickson MD [address] [place] [address] [facility] [address] Follow up in 1 week(s) on [...] 02/02/2024, 10:40 AM documented in this encounter [facility] 02-02-2024 Note Formatting of this n ote is different from the original. Images from the original note were not included. Care Management Progress Note Anticipate discharge to [facility] today.. . Discharge Milestones and Delays Expected date/time: 02/01/2024 Anticipated medical readiness: 02/01/2024 Expected discharge disposition: Care Home Facility Discharge Milestones Place discharge order Complete [...] Length of Stay (Days): 5 GMLOS: 3.9 [facility] 02-02-2024 Note Formatting of this n ote is different from the original. Images from the original note were not included. Care Management Progress Note Anticipate discharge to [facility] today.. . Discharge Milestones and Delays Expected date/time: 02/01/2024 Anticipated medical readiness: 02/01/2024 Expected discharge disposition: Care Home Facility Discharge Milestones Place discharge order Complete [...] 7:46 PM 01/31/2024 Alia Russo APRN - INDUSTRIAL ENGINEERING MANAGER 01/28/2024 7:06 PM Length of Stay (Days): 5 GMLOS: 3.9 [facility] 02-01-2024 Note Formatting of this n ote might be different from the original. Did update patient that plan was to discharge to [facility] probably tomorrow. . [facility] 02-01-2024 Note Formatting of this n ote might be different from the original. Did update patient that plan was to discharge to [facility] probably tomorrow. . [facility] 02-01-2024 Note Formatting of this n ote might be different from the original. 7000 was entered into [employer] for the [facility] per [facility] request. Facility is aware. [facility] 02-01-2024 Note Formatting of this n ote might be different from the original. 7000 was entered into [employer] for the SNF- [facility] per [facility] request. Facility is aware. T [facility] 02-01-2024 Note Formatting of this n ote might be different from the original. Tasked GRAIN MANAGER to complete 7000. Updated [facility] via careport that per attending, anticipate dc tomorrow. Per [facility] auth is good through 02/05. . [facility] 02-01-2024 Note Formatting of this n ote might be different from the original. Tasked GRAIN MANAGER to complete 7000. Updated [facility] via careport that per attending, anticipate dc tomorrow. Per [facility] auth is good through 02/05. . [facility] 02-01-2024 Hospital Discharge instructions Keyana Trimble LPN - 02/01/2024 8:45 AM EDT Images from the original note were not included. Continuity of Care Form Patient Name: Mikel iWnston : 1945 Admit date: 01/28/2024 Discharge date: [...] artery disease involving coronary bypass graft of [place] heart without angina pectoris Nonrheumatic aortic valve [...] Minimal assistance Toileting Minimal assistance Feeding Independent Data Analyst Etl Developer Minimal assistance Med Delivery yes Wound Care [...] Status Date: Discharging to Facility/ Agency Name: [facility] Address:[address] [place] [address] [place] [address] Dialysis Facility (if applicable) Name: Address: Dialysis Schedule: Phone: Fax: Comic Artist/Livestock Trucker signature: ICIAN SECTION Name: Mikel Winston Prognosis: [...] to a nursing facility directly from an [facility] or a unit of a [facility] that is not operated by or licensed by [facility] under section 5119.14 or 5160-3-15.1 5 The individual requires the level of services provided by a nursing facility for the condition for which he or she was treated in the hospital and, Physician Certification: I certify the above information and transfer of Mikel Winston is necessary for the continuing treatment of the diagnosis listed and that she requires [facility]cf facility for less than 30 days. Update Admission H&P: No change in H&P PHYSICIAN SIGNATURE: documented in this encounter [facility] 01-31-2024 Note Formatting of this n ote [...] can talk with RN, hospitalist, and hospital quality reviewer if needing more clarification on this. Epic chat sent to quality reviewer. No other SW needs noted. [facility] 01-31-2024 Note Formatting of this n ote [...] can talk with RN, hospitalist, and hospital quality reviewer if needing more clarification on this. Epic chat sent to quality reviewer. No other SW needs noted. [facility] 01-31-2024 Note Formatting of this n ote might be different from the original. Discharge plan is SNF. HCL to sign off. Please re-consult if needed. [facility] 01-31-2024 Note Formatting of this n ote might be different from the original. Discharge plan is SNF. HCL to sign off. Please re-consult if needed. T [facility] 01-31-2024 Note Formatting of this n ote might be different from the original. [facility] is able to accept. Did request that they submit for insurance auth. . [facility] 01-31-2024 Note Formatting of this n ote might be different from the original. [facility] is able to accept. Did request that they submit for insurance auth. . [facility] 01-31-2024 Note Formatting of this n ote might be different from the original. [facility]. Await review and response regarding ability to accept. [facility]CC notified. [facility] 01-31-2024 Note Formatting of this n ote might be different from the original. Referral placed to [facility] via Careport per TCC request. Await review and response regarding ability to accept. TCC notified. [facility] 01-31-2024 Note Referral placed to [facility] via Careport per TCC request. Await review and response regarding ability to accept. [facility]CC notified. [facility] 01-31-2024 Note Formatting of this n ote might be different from the original. Spoke with patient. She is in agreement with snf referral. Did provide with SNF list. Referral placed to [facility] per her request .. [facility] 01-31-2024 Note Formatting of this n ote might be different from the original. Spoke with patient. She is in agreement with snf referral. Did provide with SNF list. Referral placed to [facility] per her request .. [facility] 01-31-2024 Note Spoke with patient. She is in agreement with snf referral. Did provide with SNF list. Referral placed to [facility] per her request .. [facility] 01-31-2024 Consult note Associated Order (s): PHARMACY TO DOSE VANCO Vancomycin therapy has been discontinued by Dr. Gonzalez on 01/30. Thank you for the consult. Pharmacy signing off for vancomycin dosing. Ginny Zickefoose, RP, Date: 01/31/24 Time: 10:32 AM [facility] 01-31-2024 Consult note Associated Order (s): PHARMACY TO DOSE VANCO Vancomycin therapy has been discontinued by Dr. Gonzalez on 01/30. Thank you for the consult. Pharmacy signing off for vancomycin dosing. Ginny Gramajo [facility], Date: 01/31/24 Time: 10:32 AM Associated Order(s): IP CONSULT TO NEPHROLOGY [facility] Consult Note Reason for [...] 10 min Stress: Stress Concern Present (01/28/2024) [employer] [place] [employer] - Occupational Stress Questionnaire Feeling of Stress : To some extent Social Connections: Moderately Integrated (01/28/2024) Social Connection and Isolation Panel [NHANES] Frequency of Communication with Friends and Family: More than three times a week Frequency of Social Gatherings with Friends and Family: More than three times a week Attends [employer] Services: More than 4 times per year [...] any questions or concerns. Le Dobson APRN, INDUSTRIAL ENGINEERING MANAGER [facility], [facility] [phone] office Images from the original note were [...] creatinine, and vancomycin levels interfaced automatically to NeuroPace and data has been analyzed and interpreted. [...] via Secure Chat documented in this encounter [facility] 01-31-2024 Note Formatting of this n ote [...] aerosols yesterday. Discharge plan [facility] home [facility] vs snf when medically stable. . Discharge Milestones and Delays Expected date/time: 02/01/2024 Expected discharge disposition: Home Health Services Discharge Milestones Place discharge order Complete med reconciliation Case mgmt discharge readiness Clinical Stability Diagnostic Workup Cafeteria Assistant Recommendations Facility Choice Selection Test Results PT discharge readiness OT discharge readiness OUTDOOR EDUCATION TEACHER discharge readiness Patient Education Complete Expected Discharge History Expected Date/Time Set By Reviewed At 02/01/2024 Jade Russell RN 01/30/2024 9:00 AM tcc est 01/31/2024 GARCIA Hallman CNP 01/28/2024 7:46 PM 01/31/2024 GARCIA Hallman CNP 01/28/2024 7:06 PM Length of Stay (Days): 3 GMLOS: 3.9 [facility] 01-31-2024 Note Formatting of this n [...] aerosols yesterday. Discharge plan is home with [facility] vs snf when medically stable. . 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 Over the shift, the patient did not make progress toward the following goals. Barriers to progression include disease progress. Recommendations to continue with current care. [facility] 01-30-2024 Note Formatting of this n ote might be different from the original. Continuing to await therapy evals and recommendations. [facility] 01-30-2024 Note Formatting of this n ote might be different from the original. Continuing to await therapy evals and recommendations. T [facility] 01-30-2024 Note Formatting of this n ote might be different from the original. Business Solution Analyst following case for Discharge Needs. T [facility] 01-30-2024 Note Formatting of this n ote might be different from the original. Business Solution Analyst following case for Discharge Needs. [facility] 01-30-2024 Note Formatting of this n ote is different from the original. Images from the original note were not included. Care Management Progress Note US of lower ext pending for this morning. Urine culture pending. Remains on iv antibiotics. Pt/ot ordered and pending. Discharge plan is pending therapy evals and recommendations, wound care and antibiotic needs. Tentative discharge plan is home with [facility] when medically stable.. 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 EDUCATION TEACHER discharge readiness Patient Education Complete Expected Discharge History Expected Date/Time Set By Reviewed At 01/31/2024 GARCIA Hallman CNP 01/28/2024 7:46 PM 01/31/2024 GARCIA Hallman CNP 01/28/2024 7:06 PM Length of Stay (Days): 2 GMLOS: No GMLOS Documented [facility] 01-30-2024 Note Formatting of this n ote is different from the original. Images from the original note were not included. Care Management Progress Note US of lower ext pending for this morning. Urine culture pending. Remains on iv antibiotics. Pt/ot ordered and pending. Discharge plan is pending therapy evals and recommendations, wound care and antibiotic needs. Tentative discharge plan is home with [facility] when medically stable.. 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 EDUCATION TEACHER discharge readiness Patient Education Complete Expected Discharge History Expected Date/Time Set By Reviewed At 01/31/2024 GARCIA Hallman CNP 01/28/2024 7:46 PM 01/31/2024 GARCIA Hallman CNP 01/28/2024 7:06 PM Length of Stay (Days): 2 GMLOS: No GMLOS Documented [facility] 01-30-2024 Plan of care note The patient is Moderately Unstable - Medium risk of patient condition declining or worsening The patient's goals for the shift include rest The clinical goals for the shift include safety Over the shift, the patient did demonstrate knowledge on the diagnosis and the treatment.She remains free from falls. [facility] 01-30-2024 Plan of care note The patient is Moderately Unstable - Medium risk of patient condition declining or worsening The patient's goals for the shift include rest The clinical goals for the shift include safety Over the shift, the patient did demonstrated knowledge on care and prognosis. [facility] 01-30-2024 Nurse Note 01/29/24 2350, Pt having SOB expiratory wheezing,I gave her a PRN P.O LASIX,Dr Morillo notified,he put an order for breathing treatment an chest x-ray. [facility] 01-29-2024 Note Formatting of this n ote might be different from the original. Care Managment Initial Assessment Date: 01/29/2024 Patient Name: Mikel Winston : 1945 Patient Information Source of Information: Patient Cognition/Language: WFL - Within Functional Limits Permission given to speak with patient equal opportunity representative/caregiver as indicated: Confirmation of Payer with patient/family: Yes Payer Name: [place] Medicare / [facility] : No Confirmation of Primary Care Physician: [...] will continue to follow. Jalen Pham RN [facility] 01-29-2024 Note Formatting of this n ote might be different from the original. Care Managment Initial Assessment Date: 01/29/2024 Patient Name: Mikel Winston : 1945 Patient Information Source of Information: Patient Cognition/Language: WFL - Within Functional Limits Permission given to speak with patient equal opportunity representative/caregiver as indicated: Confirmation of Payer with patient/family: Yes Payer Name: [place] Medicare / [facility] : No Confirmation of Primary Care Physician: [...] continue to follow. Jalen Pham RN T [facility] 01-29-2024 Consult note Associated Order (s): IP CONSULT TO NEPHROLOGY [facility] Nephrology Consult Note Reason for [...] 10 min Stress: Stress Concern Present (01/28/2024) [employer] [place] [employer] - Occupational Stress Questionnaire Feeling of Stress : To some extent Social Connections: Moderately Integrated (01/28/2024) Social Connection and Isolation Panel [NHANES] Frequency of Communication with Friends and Family: More than three times a week Frequency of Social Gatherings with Friends and Family: More than three times a week Attends [employer] Services: More than 4 times per year [...] any questions or concerns. Le Dobson APRN, INDUSTRIAL ENGINEERING MANAGER [facility] [employer], [facility] [phone] office [facility] 01-28-2024 Consult note Formatting of th is [...] creatinine, and vancomycin levels interfaced automatically to [employer] and data has been analyzed and interpreted. [...] Limon RPh Available via Secure Chat T [facility] 01-28-2024 History and physical note Images from [...] Needs: Unmet Transportation Needs (03/08/2022) Received from [facility] [employer] [facility] Home [employer]fort [employer] [facility] PRAPARE - Transportation Lack of Transportation [...] - DO NOT do CPR, intubation] [_] [DNR-AGENT SPA DESK - Comfort care only] [_] DNR form [...] Sukhi Maurer MD Division of Hospitalist Medicine [facility] [employer] Work Phone: 01-28-2024 Note [employer] [facility] 01-28-2024 History and physical [...] Needs: Unmet Transportation Needs (03/08/2022) Received from [facility] PRAPARE - Transportation Lack of [...] - DO NOT do CPR, intubation] [_] [DNR-AGENT SPA DESK - Comfort care only] [_] DNR form [...] Sukhi Maurer MD Division of Hospitalist Medicine [facility] documented in this encounter [facility] 01-28-2024 Emergency department Note Guided family back MELIDA Owusu 01/28/24 1648 [facility] 01-28-2024 Emergency department Note Guided family back MELIDA Owusu 01/28/24 1648 Introduced myself as pt liaison explained role and provided support to son Guy and his Lizzette in [facility], pt arrived via EMS. MELIDA Owusu [...] Needs: Unmet Transportation Needs (03/08/2022) Received from [facility] PR[facility] - Transportation Lack of Transportation (Medical): [...] Medicine Provider Mindi Angulo MD Resident 01/28/24 7166 Emergency Department Encounter [facility] ED Patient: Mikel Winston : 1945 Date [...] for clarification.) Surjit Sanchez MD Acute Care [facility] Surjit Sanchez MD 01/29/24 0122 documented in this encounter [facility] 01-28-2024 Emergency department Note Introduced myself as pt liaison explained role and provided support to son Guy and his Lizzette in [facility], pt arrived via EMS. MELIDA Owusu 01/28/24 1631 [facility] 01-28-2024 Physician Emergency department Note EMERGENCY DEPARTMENT [...] Needs: Unmet Transportation Needs (03/08/2022) Received from [facility] [employer] [facility] PRAPARE - Transportation Lack of [...] Provider Mindi Angulo MD Resident 01/28/24 1836 [employer] 01-28-2024 Physician Emergency department Note Emergency Department Encounter [facility] ED Patient: Mikel Winston : 1945 Date [...] Solutions Surjit Sanchez MD 01/29/24 0122 T [employer] Work Phone: 01-09-2024 Evaluation note Diagnosis Type [...] Stage IV (severe) documented in this encounter [facility]05-31-2024 Telephone encounter Note* Telephone Encounter - Sylvia Monroy - 01/06/2024 2:50 PM EDT Consult to nephrology CKD chronic kidney disease stage 4 GFR 15-29 ml/min Confirm [id number] Sylvia Monroy [facility]05-31-2024 Miscellaneous Notes* Telephone Encounter - Sylvia Monroy - 01/06/2024 2:50 PM EDT Consult to nephrology CKD chronic kidney disease stage 4 GFR 15-29 ml/min Confirm [id number] Sylvia Monroy documented in this encounterProm[facility] Telephone encounter Note * Telephone Encounter - Sylvia Monroy - 01/06/2024 2:48 PM EDT Consult to ophthalmology Screening for diabetic retinopathy Confirm [id number] Sylvia Monroy [facility]05-31-2024 Miscellaneous Notes* Telephone Encounter - Sylvia Monroy - 01/06/2024 2:48 PM EDT Consult to ophthalmology Screening for diabetic retinopathy Confirm [id number] Sylvia Monroy documented in this encounterPromedica [facility]05-31-2024 NoteHNO ID: [id number] Author: ?, ?, ? Service: ? Author Type: ? Type: Progress Notes Filed: 05/29/2024 16:07 Note Text: [facility] [place] Cohn DO [address] [place] [address] Date of Evaluation: 01/06/2024 Patient Name: Mikel [...] history is provided by the patient. No mash processing operator was used. Diabetes She presents for her [...] Reported on 03/07/2023) M (more content not included)...[facility]05-31-2024 History of Present illness Narrative* Melanie Ellsworth - 01/06/2024 1:23 PM EDT Images from the original note were not included. [facility] Brandi Cohn DO [address] [place] [address] Date of Evaluation: 01/06/2024 Patient Name: Mikel [...] history is provided by the patient. No mash processing operator was used. Diabetes She presents for her [...] kidney disease) stage 4, GFR 15-29 ml/min ([facility]) - ICD9: 585.4, ICD10: N18.4 - [...] DO, January 0541:41 PM documented in this encounterProm[facility] Telephone encounter Note * Telephone Encounter [...] order for the US is here for flower buncher or picker and based on her chart, it appears shegoes to [facility] for many of her tests. No order for referral - sent message back to For the referral. [facility]05-14-2024 Telephone encounter Note* Telephone Encounter - Grace Linda LPN - 12/20/2023 4:13 PM EDT Need to have order for Neph referral [facility]05-14-2024 Miscellaneous Notes* Telephone Encounter - Grace Linda LPN - 12/20/2023 4:13 PM EDT Spoke to Clinton. Related all the information from Dr. Cohn. Clinton states that his sister generally handles all this for Mikel, but she has been working more recently, so Clinton may have to handle this. I let him know that the order for the US is here for flower buncher or picker and based on her chart, it appears [...] vincent but no answer documented in this encounterPromedica [facility]lower [facility]05-14-2024 Telephone encounter Note * Telephone Encounter - Grace Linda LPN - 12/20/2023 9:14 AM EDT Attempted to LM for pt to rtn call. VM is full, unable at this time. Will attempt to contact later. [facility]05-10-2024 Telephone encounter Note* Telephone Encounter - Arnel Govea LPN - 12/16/2023 4:07 PM EDT Tried to call the patients son, there was no answer. [facility]05-10-2024 Telephone encounter Note* Telephone Encounter - Arnel Govea LPN - 12/16/2023 4:02 PM EDT ----- Message from Komal Cohn DO sent at 12/16/2023 3:31 PM EDT ----- End stage kidney disease neph conult us ordered stop lasix I spoke qwith pt but she lack insight. She will hav he dgtr call me Tuesday I called son vincent but no answer [facility]05-01-2024 NoteHNO ID: [id number] Author: KOMAL COHN DO Service: ? Author Type: Physician Type: Progress Notes Filed: 12/11/2023 22:53 Note Text: [facility] [place] Komal Cohn DO [address] [place] [address] Date of Evaluation: 12/07/2023 Patient Name: Mikel Winston : 1945 Chief Complaint: Patient presents with: Urinary Frequency: Burning with urination Confusion Leg Edema: Right lower leg, redness, blisters Nursing Intake: There are no exam notes on file for this visit. Subjective Ms. Winston is a 78 year old female who presents with the following complaint(s): The history is provided by the patient. No mash processing operator was used. UTI This is a new [...] Reported on 03/07/2023) MULTIVITAMIN (more content not included)...[facility] 12-07-2023 History of Present illness Narrative* Komal Cohn DO - 12/07/2023 10:32 AM EDT Images from the original note were not included. [facility] [place] Komal Cohn DO [address] [place] [address] Date of Evaluation: 12/07/2023 Patient Name: Mikel Winston : 1945 Chief Complaint: Patient presents with: Urinary Frequency: Burning with urination Confusion Leg Edema: Right lower leg, redness, blisters Nursing Intake: There are no exam notes on file for this visit. Subjective Ms. Winston is a 78 year old female who presents with the following complaint(s): The history is provided by the patient. No mash processing operator was used. UTI This is a new [...] DO, 2023 10:52 PM documented in this encounterPromedica [facility] Hospital02-21-2024 Miscellaneous Notes* Telephone Encounter - Marilin Rosales LPN - 09/28/2023 4:09 PM EST Pharmacy faxed requesting the following refill Refill(s) Requested: Requested Prescriptions Pending Prescriptions Disp Refills MYRBETRIQ 25 mg Tb24 [Pharmacy Med Name: MYRBETRIQ ER 25 MG TABLET] 90 tablet 1 Sig: take 1 tablet by mouth every day ALLERGIES Allergen Reactions Codeine Hives, Rash Codeine Sulfate Unknown (home) [phone] (cell) Last Office Visit Date: 06/27/2023 Last [facility] Emergency Department Health Visit: Visit date not found Future Appointment: Visit date not found The patients preferred pharmacy has been captured for this encounter? yes Request is for script(s) to be escript to pharmacy. Marilin Rosales LPN documented in this encounterPromedica Flower Hospital01-15-2024 NoteHNO ID: [id number] Author: GOGO BARBOSA RN Service: ? Author Type: Registered Nurse Type: Progress Notes Filed: 08/22/2023 15:11 Note Text: POPULATION HEALTH NAVIGATION OUTREACH Action/FYI Patient Identified by Name and : YES, Outreach Outcome/Action Chart reviewed and record for caregap Controlling Blood Pressure uploaded to [employer]. Reason for Outreach Care Gap or Scheduling/Wellness visits Payer: Payor: [employer] / Plan: [employer] HMO / Product Type: HMO / Care Gap Reviewed:: Controlling Blood Pressure Navigation Signature: Gogo Barbosa RN August 22, 2023 3:08 [facility]01-15-2024 NotePatient Outreach (AGACM) MIKEL WINSTON ([id number]) 1945 F Date Time Provider Department 08/22/23 GOGO BARBOSA [facility] During your visit today, we recorded the following information about you: Gogo Barbosa RN 08/22/2023 3:11 PM Signed POPULATION HEALTH NAVIGATION OUTREACH Action/FYI Patient Identified by Name and : YES, Outreach Outcome/Action Chart reviewed and record for caregap Controlling Blood Pressure uploaded to [employer]. Reason for Outreach Care Gap or Scheduling/Wellness visits Payer: Payor: [employer] / Plan: [employer]VANT[employer] HMO / [...] failure, unspecified HF chroni*12/01/2022 Angina at rest ([facility]) [I20.89] 12/01/2022 Obesity, Class I, BMI 30-34.9 [E66.9] 12/01/2022 Systolic murmur [R01.1] 12/26/2022 Platelets decreased ([facility]) [D69.6] 12/26/2022 Encounter Status:Closed by GOGO BARBOSA on 08/22/23[facility] 07-26-2023 Miscellaneous Notes* Telephone Encounter - Arnel Govea LPN - 07/26/2023 9:38 AM EST Pharmacy faxed requesting the following refill Refill(s) Requested: Requested Prescriptions Pending Prescriptions Disp Refills furosemide (LASIX) 20 mg tablet [Pharmacy Med Name: FUROSEMIDE 20 MG TABLET] 90 tablet 0 Sig: take 1 tablet by mouth every day ALLERGIES Allergen Reactions Codeine Hives, Rash Codeine Sulfate Unknown (home) [phone] (cell) Last Office Visit Date: 06/27/2023 Last [facility] Visit: Visit date not found Future Appointment: Visit date not found The patients preferred pharmacy has been captured for this encounter? yes Request is for script(s) to be escript to pharmacy. Arnel Govea LPN documented in this encounterPromedica Flower Hospital12-07-2023 Miscellaneous Notes* Telephone Encounter - Marilin Rosales LPN - 07/14/2023 8:05 AM EST Pharmacy faxed requesting the following refill Refill(s) Requested: Requested Prescriptions Pending Prescriptions Disp Refills losartan (COZAAR) 25 mg tablet [Pharmacy Med Name: LOSARTAN POTASSIUM 25 MG TAB] 90 tablet 0 Sig: take 1 tablet by mouth every day ALLERGIES Allergen Reactions Codeine Hives, Rash Codeine Sulfate Unknown (home) [phone] (cell) Last Office Visit Date: 06/27/2023 Last [facility] Emergency Department Health Visit: Visit date not found Future Appointment: Visit date not found The patients preferred pharmacy has been captured for this encounter? yes Request is for script(s) to be escript to pharmacy. Marilin Rosales LPN documented in this encounterPromedica Flower Hospital11-27-2023 Miscellaneous Notes* Telephone Encounter - Arnel [...] I think I sent? documented in this encounterPromedica Flower Hospital11-26-2023 Evaluation note* Diagnosis Type 2 diabetes mellitus with stage 3 chronic kidney disease, without long-term current use of insulin, unspecified whether stage 3a or 3b CKD (HCC)- Primary Primary hypertension Unspecified essential hypertension Recurrent UTI (urinary tract infection) Urinary tract infection, site not specified Heart murmur Undiagnosed cardiac murmurs Obesity, Class I, BMI 30-34.9 Obesity, unspecified documented in this encounter [facility]11-20-2023 History of Present illness Narrative* Komal Cohn DO - 06/27/2023 11:04 AM EST Images from the original note were not included. [facility] [place] Komal Cohn DO [address] [place] [address] Date of Evaluation: 06/27/2023 Patient Name: Mikel Winston : 1945 Chief Complaint: Patient presents with: F/U 3 Month Diabetes Hypertension Nursing Intake: There are no exam notes on file for this visit. Subjective Ms. Winston is a 77 year old female who presents with the following complaint(s): The history is provided by the patient. No mash processing operator was used. Diabetes She presents for her [...] 27, 2023 11:10 AM. documented in this encounterPromedica Flower Hospital09-20-2023 Miscellaneous Notes* Telephone Encounter - Arnel Govea LPN - 04/27/2023 8:30 AM EDT Pharmacy faxed requesting the following refill Refill(s) Requested: Requested Prescriptions Pending Prescriptions Disp Refills levothyroxine (SYNTHROID) 50 mcg tablet [Pharmacy Med Name: LEVOTHYROXINE 50 MCG TABLET] 90 tablet 3 Sig: take 1 tablet by mouth every day ALLERGIES Allergen Reactions Codeine Hives, Rash Codeine Sulfate Unknown (home) [phone] (cell) Last Office Visit Date: 03/14/2023 Last [facility] Emergency Department Health Visit: Visit date not found Future Appointment: 06/13/2023 The patients preferred pharmacy has been captured for this encounter? yes Request is for script(s) to be escript to pharmacy. Arnel Govea LPN documented in this encounterPromedica Flower Hospital08-23-2023 History of Present illness Narrative* Jose Joel MD - 03/30/2023 10:40 AM EDT Images from the original note were not included. [facility] [address] [facility] [address] Dept: [phone] Dept Loc: [phone] DATE of SERVICE:03/30/23 TIME of SERVICE: 11:03 [...] back in 6 months. documented in this [facility]08-07[facility] History of Present illness Narrative* Komal Cohn DO - 03/14/2023 10:52 AM EDT Images from the original note were not included. [facility] Brandi Cohn DO [address] [place] [address] Date of Evaluation: 03/14/2023 Patient Name: Mikel [...] history is provided by the patient. No mash processing operator was used. Edema This is a chronic [...] 14, 2023 11:14 AM. documented in this encounterPromedica Flower Hospital08-01-2023 Miscellaneous Notes* Telephone Encounter - Grace Linda LPN - 03/08/2023 2:03 PM EDT Pt notified of results and verbalized understanding. * Telephone Encounter - Komal Cohn DO - 03/08/2023 10:45 AM EDT No deep vein clot just do what we discussed yesterday, documented in this encounterPromedica Flower Hospital07-31-2023 Miscellaneous Notes* Telephone Encounter - Marilin [...] Codeine Hives, Rash Codeine Sulfate Unknown (home) [phone] (cell) Last Office Visit Date: 03/07/2023 Last [facility] Emergency [facility] Health Visit: Visit date not found Future Appointment: 06/13/2023 The patients preferred pharmacy has been captured for this encounter? yes Request is for script(s) to be escript to pharmacy. Marilin Rosales LPN documented in this encounterPromedica Flower Hospital07-31-2023 History of Present illness Narrative* Komal Cohn, - 03/07/2023 11:12 AM EDT Images from the original note were not included. [facility] [place] Komal Cohn DO [address] [place] [address] Date of Evaluation: 03/07/2023 Patient Name: Mikel Wniston : 1945 Chief Complaint: Patient presents with: Swelling: Right leg swelling and redness. Left foot swelling. Urinary Frequency Nursing Intake: There are no exam notes on file for this visit. Subjective Ms. Winston is a 77 year old female who presents with the following complaint(s): The history is provided by the patient. No mash processing operator was used. Edema This is a recurrent [...] (around 03/14/2023) for medication follow up. Komal oChn DO Attestation: Scribe Statement: Vicenta Ellsworth am scribing for, and in the presence of, Komal Cohn DO March 07, 2023 11:26AM. Physician Statement: I, Komal Cohn DO, personally performed the services described in the documentation, as scribed by Melanie Ellsworth in my presence, and it is both accurate and complete March 07, 2023 11:33 AM. documented in this encounterPromedica Flower Hospital07-26-2023 Miscellaneous Notes* Telephone Encounter - Lexi [...] for the UTI Was Patient Referred to [facility]/Seek Emergency Treatment (Y/N): no Did Patient Agree (Y/N): n/a Was An Attempt Made To Transfer The Patient To The Office (Y/N): no Were You Able To Reach Someone At The Office (Y/N): n/a If Yes - Patient Was Transferred To (Caregivers Name): n/a If No - Which [facility] Leadership 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 Did You Speak With Regarding This Patient: n/a Was an appointment scheduled (Y/N): no-unable to schedule same day Reason patient was requesting visit (RFV/signs and symptoms/diagnosis) : leg swelling in 1 leg withrash, possible UTI as well---unable to schedule same day or for the UTI Person calling if other than patient: n/a Return call to if other than patient: n/a Best contact number: [phone] Thank you, Seema Malik March 02, 2023 3:44 PM documented in this encounterPromedica [facility] Hospital07-17-2023 Miscellaneous Notes* Telephone Encounter - Arnel [...] Codeine Hives, Rash Codeine Sulfate Unknown (home) [phone] (cell) Last Office Visit Date: 12/13/2022 Last [facility] Emergency Department Health Visit: Visit date not found Future Appointment: 06/13/2023 The patients preferred pharmacy has been captured for this encounter? yes Request is for script(s) to be escript to pharmacy. Arnel Govea LPN documented in this encounterPromedica [facility]05-09-2023 Miscellaneous Notes* Telephone Encounter - Arnel [...] Codeine Hives, Rash Codeine Sulfate Unknown (home) [phone] (cell) Last Office Visit Date: 12/13/2022 Last [facility] Emergency Department Health Visit: Visit date not found Future Appointment: 06/13/2023 The patients preferred pharmacy has been captured for this encounter? yes Request is for script(s) to be escript to pharmacy. Arnel Govea LPN documented in this encounterPromedica F[facility]05-05-2023 Telephone encounter Note * Telephone Encounter - Charley Parker APRN - INDUSTRIAL ENGINEERING MANAGER - 12/10/2022 9:58 AM EDT I called and advised her echo completed December 08, 2022 documents a stable, mildly reduced LV function,EF 45%, she has continued moderate aortic stenosis, which is also stable in comparison to her priorecho December 14, 2021. We will continue her present medications, she agrees to keep her upcoming appointment scheduled with Dr. Joel in March. [facility] [id number] Miscellaneous Notes* Telephone Encounter - GARCIA Pringle [...] office visit in March. documented in this encounterSKettering Memorial [id number] Telephone encounter Note* Telephone Encounter - GARCIA [...] her next scheduled office visit in March. [facility] [id number] Hospital Discharge instructions* Discharge Instr - Activity* GARCIA Ruiz CNP - 11/19/2022 12:51 PM EDT As tolerated * Discharge Instr - Diet* GARCIA Ruiz CNP - 11/19/2022 12:51 PM EDT Carb controlled * Attachments The following attachments cannot be sent through Care Everywhere. * Urinary Tract Infection Discharge Instructions, Adult (Bruneian) documented in this [place] [address]-14-2023 History of Present illness Narrative* Erma French - 11/19/2022 9:07 AM EDT Nutrition rescreen completed. Patient assigned a level 1. documented in this [place] [address]-13-2023 Miscellaneous Notes* Significant Event - GARCIA Weeks CNP - 11/18/2022 1:20 AM EDT I am not directly involved in care of this patient. Accepted with initial orders placed remotely from [facility] with approval from Dr. Henderson. Further care to be managed by ED provider pending day shift CDU provider arrival. This is a non- billable note. documented in this [place] [address]-13-2023 Note* Significant Event - GARCIA Weeks CNP - 11/18/2022 1:20 AM EDT I am not directly involved in care of this patient. Accepted with initial orders placed remotely from [facility] with approval from Dr. Henderson. Further care to be managed by ED provider pending day shift CDU provider arrival. This is a non- billable note. [id number] Note* Significant Event - GARCIA Weeks CNP - 11/18/2022 1:20 AM EDT I am not directly involved in care of this patient. Accepted with initial orders placed remotely from [facility] with approval from Dr. Henderson. Further care to be managed by ED provider pending day shift CDU provider arrival. This is a non- billable note. [facility] [id number] Emergency department Note* Ajit Gray DO - 11/17/2022 8:19 PM EDT Emergency Department Encounter [facility] ED Patient: Mikel Winston : 1945 Date of Evaluation: 11/17/2022 ED Provider: Ajit Gray DO Chief Complaint Chief Complaint Patient presents with Urinary Frequency Pt states painful urination, family states that pt has been acting more confused since Tuesday. PT was able to answer orientation questions appropriately. TATITLEK Mikel Winston is a 77 y.o. female [...] Final Impression 1. BARRY (acute kidney injury) ([facility]/HCC) ([facility]) 2. Cystitis DISPOSITION observation Comment: Please [...] Gray DO 11/18/22 0154 [facility] this [facility] Physician Emergency department Note* Ajit Gray DO - 11/17/2022 8:19 PM EDT Emergency Department Encounter [facility] ED Patient: Mikel Winston : 1945 Date of Evaluation: 11/17/2022 ED Provider: Ajit Gray DO Chief Complaint Chief Complaint Patient presents with Urinary Frequency Pt states painful urination, family states that pt has been acting more confused since Tuesday. PT was able to answer orientation questions appropriately. TATITLEK Mikel Winston is a 77 y.o. female [...] of 11/18/22 0149 BARRY (acute kidney injury) ([facility]/HCC) ([facility]) Cystitis Diagnostic tests considered but not [...] Impression 1. BARRY (acute kidney injury) (CMS/HCC) ([facility]) 2. Cystitis DISPOSITION observation Comment: Please [...] [employer] Ajit Gray DO 11/18/22 0154 [facility] [id number] Miscellaneous Notes* Telephone Encounter - Marilin Rosales [...] [facility] [place] Order pended * Telephone Encounter - Tigist Elliott - 11/10/2022 10:58 AM EDT Pt called in and said her glucose monitor stopped working. She would like someone to call her back (home # first and then mobile) to discuss what to do. She doesn't want to flower buncher or picker her test strips yet because she is not sure if she will get the same testing unit. documented in this encounterPromedica [facility]lower [facility]03-13-2023 Miscellaneous Notes* Telephone Encounter - Arnel [...] pharmacy. Arnel Govea LPN documented in this encounterPromedica Flower Hospital02-23-2023 History of Present illness Narrative* GARCIA Pringle CNP - 09/30/2022 11:00 AM EST Images from the original note were not included. [facility] Cardiology Office Note DATE of SERVICE: 09/30/22 [...] evaluation and to assess for progression 3. Hbhgjjzvqfgk-qoph-vrnjjrqyaf 4. Dyslipidemia-high intensity statin therapy continues, rosuvastatin 20 mg daily for cardiac risk reduction 5. Follow-up-6 months and as needed. Charley Parker APRN/JATIN documented in this [facility]13[facility]23 Miscellaneous Notes* Telephone Encounter - Marilin Rosales LPN - 09/20/2022 9:15 AM EST E-Prescribing Status: Receipt confirmed by pharmacy (08/19/2022 11:02 AM EST) 90 tablets was given 08/19/22. documented in this encounterPromedica Flower Hospital02-09-2023 Miscellaneous Notes* Telephone Encounter - Marilin Rosales LPN - 09/16/2022 2:10 PM EST 90 tablets was sent 08/19/22. E-Prescribing Status: Receipt confirmed by pharmacy (08/19/2022 11:02 AM EST) documented in this encounterPromedica Flower Hospital01-16-2023 Miscellaneous Notes* Telephone Encounter - Marilin [...] pharmacy. Marilin Rosales LPN documented in this encounterPromedica Flower Hospital01-12-2023 Miscellaneous Notes* Telephone Encounter - Marilin Rosales LPN - 08/19/2022 9:37 AM EST Medication pended * Telephone Encounter - Nanette Nelson - 08/19/2022 9:30 AM EST Pt requesting refill of Losartan 25mg 1 daily. Pt is almost out. [facility] [place] Nanettefarrah Nelson documented in this encounterPromedica Flower Hospital01-09-2023 Miscellaneous Notes* Telephone Encounter - Arnel [...] (home) Last Office Visit Date: 08/16/2022 Last [facility] Emergency Department Health Visit: Visit date not found Future Appointment: 11/15/2022 The patients preferred pharmacy has been captured for this encounter? yes Request is for script(s) to be escript to pharmacy. Arnel Govea LPN documented in this encounterPromedica Flower Hospital01-09-2023 History of Present illness Narrative* Komal Cohn DO - 08/16/2022 11:29 AM EST Images from the original note were not included. [facility] [place] Cohn DO [address] [place] [address] Date of Evaluation: 08/16/2022 Patient Name: Mikel Winston : 1945 Chief Complaint: Patient presents with: Diabetes Hypertension Cough Nasal Congestion wants to discuss how much Furosemide to take Nursing Intake: There are no exam notes on file for this visit. Subjective Ms. Winston is a 77 year old female who presents with the following complaint(s): The history is provided by the patient. No mash processing operator was used. Diabetes She presents for her [...] 16, 2022 11:35 AM. documented in this encounterPromedica Flower Hospital09-26-2022 History of Present illness Narrative* Komal Cohn DO - 05/03/2022 11:18 AM EDT Images from the original note were not included. [facility] [place] Komal Cohn DO [address] [place] [address] Date of Evaluation: 05/03/2022 Patient Name: Mikel [...] history is provided by the patient. No mash processing operator was used. Diabetes She presents for her [...] 03, 2022 11:33 AM. documented in this encounterPromedica Flower Hospital09-26-2022 Miscellaneous Notes* Telephone Encounter - Marilin Rosales LPN - 05/03/2022 11:18 AM EDT Patient has an appt today * Telephone Encounter - Komal Cohn DO - 04/30/2022 11:00 AM EDT * Telephone Encounter - Marilin Rosales LPN - 04/29/2022 3:46 PM EDT Images from the original note were not included. Jackie from [facility] called in and left a [...] Advised Jackie on 04/27/22 Dr Cohn said: Komal Cohn DO 2:58 PM Note Decrease lasix to 20 mg day decrease losartan to 25 mg day bmp 2 weeks written Please verify and update medication list. She will discuss with patient the lasix and losartan. documented in this encounterPromedica Flower Hospital09-21-2022 Miscellaneous Notes* Telephone Encounter - Le Graves - 04/28/2022 11:24 AM EDT PT RETURNED CALL AND WAS GIVEN NEW INSTRUCTIONS W MEDICATIONS PT IS SCHEDULED 05/03/22 ALSO. SO ANY FURTHER QUESTIONS SHE WILL ASK AT THIS APPT SHE STATED. documented in this encounterPromedica Flower Hospital09-20-2022 Miscellaneous Notes* Telephone Encounter - Komal Cohn DO - 04/27/2022 2:55 PM EDT Decrease lasix to 20 mg day decrease losartan to 25 mg day bmp 2 weeks written documented in this encounterPromedica Flower Hospital09-12-2022 Miscellaneous Notes* Telephone Encounter - Grace [...] PM EDT Rec'd call from Noemi at [facility]. She seen patient and states that she has 2+ pitting edema, with a 4.6 # wt gain. Pt has 20mg Lasix prn. Is it ok for the patient to take 20mg daily until the swelling goes down. Please advise documented in this encounterPromedica Flower Hospital09-06-2022 Miscellaneous Notes* Telephone Encounter - Grace [...] pharmacy. Grace Linda LPN documented in this encounterPromedica Flower Hospital07-18-2022 Miscellaneous Notes* Telephone Encounter - Alia [...] De La Paz LPN documented in this encounterPromedica Flower Hospital07-15-2022 Miscellaneous Notes* Telephone Encounter - Nanette Nelson - 02/19/2022 3:25 PM EDT Pt has been recertified for home care. She will be seen once weekly every other week for 8 weeks, to help her understand diabetes and CHF Nanette Nelson documented in this encounterPromedica Flower Hospital06-14-2022 Miscellaneous Notes* Telephone Encounter - Le Canales - 01/19/2022 3:00 PM EDT LATONYA A FRAME ASSEMBLER W [facility] [employer] PHONED W HIS RECOMMENDATION W HER INCOME SHE SHOULD QUALIFY FOR WAIVERED MEDICAID PLAN. SHE HAS AGREED TO SPEAK W SOMEONE W [facility] AGENCY ON AGING. THIS WILL HELP PROVIDE MORE SERVICES FOR HER W HELP IN THE HOME. (STATED PATIENT IS $300-$400 OVER IN HER INCOME FOR MEDICAID. BUT SHE IS BORDERLINE FOR POVERTY LEVEL. LATONYA CAN BE REACHED AT [phone] documented in this encounterPromedica Flower Hospital05-31-2022 Miscellaneous Notes* Telephone Encounter - Komal [...] VERIFY IF WE RECEIVED RECENT LABS FROM [facility] Was Patient Referred to [facility]/Seek Emergency Treatment (Y/N): NA Did Patient Agree (Y/N): NA Was An Attempt Made To Transfer The Patient To The Office (Y/N): N Were You Able To Reach Someone At The Office (Y/N): NA If Yes - Patient Was Transferred To (Caregivers Name): NA If No - Which [facility] Leadership 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 Did You Speak With Regarding This Patient: NA Was an appointment scheduled (Y/N): Y Reason patient was requesting visit (RFV/signs and symptoms/diagnosis) : REQUESTING TO VERIFY IF THE OFFICE RECEIVED HER RECENT LAB WORK FROM Reissued [facility] Person calling if other than patient: PATIENT Return call to if other than patient: PATIENT Best contact number: [phone] Thank you, Dari Varela January 05, 2022 12:11 PM documented in this encounterPromedica Flower Hospital05-27-2022 Miscellaneous Notes* Telephone Encounter - Komal Cohn DO - 01/01/2022 4:33 PM EDT Anemia. Any bleeding ckd Needs anemia labs. Ill need to see bt labs ordered documented in this encounterPromedica Flower Hospital05-19-2022 Miscellaneous Notes* Telephone Encounter - Marilin [...] (home) Last Office Visit Date: 11/30/2021 Last [facility] Emergency Department Health Visit: Visit date not found Future Appointment: 03/01/2022 The patients preferred pharmacy has been captured for this encounter? yes Request is for script(s) to be escript to pharmacy. Marilin Rosales LPN documented in this encounterPromedica Flower Hospital05-19-2022 Miscellaneous Notes* Telephone Encounter - Fawad Perez DO - 12/24/2021 11:17 AM EDT I reviewed her hospital discharge summary. She had sepsis with Enterococcus. Infectious disease recommended the Linezolid. There is not a clear substitute. See if we can process the prior authorization. I know it is expensive but the patient may want to pay tpo-fu-fqqdto to get the best antibiotic. Dr. Perez [...] the physician covering for him. I contacted [facility] Brandi and they stated that the medication does require aPA - it is not approved be Medicare. I asked that the PA request be sent to the office. Is there another medication that can be given to the patient? Please advise. documented in this encounterPromedica Flower Hospital05-17-2022 NoteDischarge Summary Mikel Winston : 1945 [...] relief after 1 dose, call 911. nystatin [id number] UNIT/GM powder Commonly known as: MYCOSTATIN omeprazole [...] Your Medications These medications were sent to [facility]/pharmacy #[id number] - [address] [phone] - [phone] [place] [address] ? atenolol 50 MG tablet ? benzonatate 100 MG capsule ? levothyroxine 50 MCG tablet ? linezolid 600 MG tablet DIET: No diet orders on file ACTIVITY: No restriction. up with assist SIGNIFICANT DIAGNOSTIC STUDIES: COMPLEXITY OF FOLLOW UP: [] Moderate Complexity: follow up within 7-14 calendar days (05858) [] Severe Complexity: follow up within 7 calendar days (44880) FOLLOW UP TESTING, PENDING RESULTS OR REFERRALS [...] minutes SIGNED: Nguyen Mclaughlin MD 12/30/2021, 2:31 [facility]05-17-2022 Hospital Discharge instructions * Discharge Instr - [...] most local grocery stores, pharmacies, and chain [employer]-stores. If you have any questions about your diet or nutrition, call the hospital and ask for the dietitian. Heart Healthy * Discharge Instr - Lab* Diya Vaughan LPN - 12/20/2021 1:18 PM EDT Your physician has ordered skilled home care services for you. Your home care will be provided by: [facility] [phone] Scheduling [phone] * Additional Instructions* Linda Tejeda MD - 12/13/2021 Please return to the emergency department if your symptoms change or worsen. * Attachments The following attachments cannot be sent through Care Everywhere. * UTI (Urinary Tract Infection): Female (Bruneian) documented in this encounterSUMMA Work Phone: 1(719) 626-732805-17-2022 History of Present illness Narrative* Sue Flood RCP - 12/22/2021 2:36 PM EDT [facility] Respiratory Care Department Progress Note SpO2 at rest on RA = 99% SpO2 with ambulation on RA = 97% Distance Walked = 100' Recovery SpO2 with ambulation = 99% Qualify for home O2 Y/N = No Patient mobile at home Y/N = Yes * Grace Galvez PTA - 12/22/2021 1:48 PM EDT Physical Therapy Facility/Department: [facility] Physical Therapy Treatment Note Name: Mikel [...] Ambulation Assistance: Independent Transfer Assistance: Independent Active Inclusion Special Education Teacher: No Patient's Inclusion Special Education Teacher Info: children Occupation: Retired Vision/Hearing Cognition Orientation [...] step height and length. Gait Deviations: Slow Elba;Decreased step length;Decreased step height Distance: 250 ft [...] Timed Code Treatment Minutes: 12 Minutes (GT) ARTIST CONSULTANT wore surgical mask and gloves throughout entire session with patient. Patient wore mask at all times when out of room. Grace Galvez, ZACH * DAVIS Sauer - 12/22/2021 12:41 PM EDT Occupational Therapy Facility/Department: [facility] Occupational Therapy Daily Treatment Note Name: [...] Ambulation Assistance: Independent Transfer Assistance: Independent Active Inclusion Special Education Teacher: No Patient's Inclusion Special Education Teacher Info: children Occupation: Retired Safety Devices Type [...] Cognition Overall Cognitive Status: WFL AM-PAC Score [facility] Inpatient Daily Activity Raw Score: 22 (12/22/211515) [facility] Inpatient ADL T-Scale Score : 47.1 (12/22/211515) [...] included. Hospitalist Progress Note 12/21/2021 5:09 PM [phone]: Please page me or perfect serve me for patient care issues. [phone]: Please page [facility] night Hospitalist for any issues. Subjective: Admit Date: 12/13/2021 PCP: KOMAL COHN DO Room#: 260/[id number] Admitting synopsis:Admitted 12/13/21 with AMS and found [...] Severe Extremities (HF dx, cellulitis of leg.) Dental Hygiene Instructor Strength: Not Performed Nutrition Assessment: Pt states [...] Anthropometric Measures: Height: 5' 5 (165.1 cm) [place] Body Weight (IBW): 125 lbs (57 kg) [...] On: Kcal/kg Weight Used for Energy Requirements: [place] Energy (kcal/day): 1425 - 1700 kcal (25-30) Weight Used for Protein Requirements: [place] Protein (g/day): 57-86 g (1-1.2) Method Used for Fluid Requirements: ml/Kg Fluid (ml/day): 2715-4650 or per MD Nutrition Diagnosis: Altered nutrition-related [...] Planning: Continue current diet Nurys Butts Contact: #[phone] * GARCIA Hawkins CNP - 12/21/2021 1:11 [...] ROM Expected Impact [] POA Clarified [] PROFESSIONAL NURSE Avoided [] Nursing Function [] Provider Function for [name] [x] Orders Placed [] Symptom Assessment [] Patient Experience [] Patient / Caregiver Conversation * GARCIA King CNP - 12/20/2021 3:56 PM EDT Family Communication Number Called: [phone] Name of Designated Family Prepress Proofer: Arnel Forte Relationship to Patient: daughter Phone Call Outcome: I spoke with the individual listed above. Family Prepress Proofer Updated on the Following: POC and updated status * Amauri Turcios [facility] - 12/20/2021 1:40 PM EDT Pharmacy Vancomycin [...] included. Hospitalist Progress Note 12/20/2021 12:01 PM [phone]: Please page me ([phone]) or perfect serve me for patient care issues. [phone]: Please page [facility] night Hospitalist for any issues. Subjective: Admit Date: 12/13/2021 PCP: KOMAL COHN DO Room#: [id number] Admitting synopsis:Admitted 12/13/21 with AMS and found [...] of Hospitalist Medicine Inpatient Medical Services PAGER: [phone] * Ginny Gramajo RPH - 12/19/2021 2:20 [...] included. Hospitalist Progress Note 12/19/2021 11:04 AM [phone]: Please page me ([phone]) or perfect serve me for patient care issues. [phone]: Please page [facility] night Hospitalist for any issues. Subjective: Admit Date: 12/13/2021 PCP: KOMAL COHN DO Room#: 260/2609 Admitting synopsis: Admitted 12/13/21 with AMS and [...] of Hospitalist Medicine Inpatient Medical Services PAGER: [phone] * Jess Espino, ARTIST CONSULTANT - 12/19/2021 10:33 AM EDT Physical Therapy Facility/Department: [facility] Daily Treatment Note Name: Mikel Winston [...] Ambulation?: No Stairs/Curb Stairs?: No AM-PAC Score [facility] Inpatient Mobility Raw Score : 23 (12/19/21 [...] Minutes: 15 Minutes (1 gait) Jess Espino, ARTIST CONSULTANT * Stanley Holman Bhumika - 12/18/2021 1:29 PM EDT Occupational Therapy Facility/Department: [facility] Occupational Therapy Daily Treatment Note Name: [...] Ambulation Assistance: Independent Transfer Assistance: Independent Active Inclusion Special Education Teacher: No Patient's Inclusion Special Education Teacher Info: children Occupation: Retired Objective Pulse: 75 [...] Dimas RCP - 12/18/2021 10:33 AM EDT [facility] Respiratory Care Department Progress Note As [...] care of this patient, * Grace Galvez, ARTIST CONSULTANT - 12/17/2021 2:53 PM EDT Physical Therapy Facility/Department: [facility] Physical Therapy Treatment Note Name: Mikel [...] Ambulation Assistance: Independent Transfer Assistance: Independent Active Inclusion Special Education Teacher: No Patient's Inclusion Special Education Teacher Info: children Occupation: Retired Vision/Hearing Cognition Orientation [...] in standing. SUP sitting EOB AM-PAC Score [facility] Inpatient Mobility Raw Score : 19 (12/17/21 1455) AM-PAC Inpatient T-Scale Score : 45.44 (12/17/21 1455) Mobility Inpatient CMS 0-100% Score: 41.77 (12/17/21 1455) Mobility Inpatient [facility] G-Code Modifier : CK (12/17/211454) Goals Short [...] Treatment Minutes: 34 Minutes (GT, Ther Act) ARTIST CONSULTANT wore surgical mask and gloves throughout entire session with patient. Patient wore mask at all times when out of room. Grace Galvez, ARTIST CONSULTANT * Ginny Gramajo RPH - 12/17/2021 2:20 [...] from the original note were not included. [facility] - Infectious Diseases Attending Progress Note Subjective: [...] to culture collected on: 12/13/2021 at 1518 ([id number]). 12/13/2021 Enterococcus faecalis DETECTED; Leticia/B Not Detected. Presumptive identification performed using Image Searcher PCR methodology; confirmatory identification to follow. _ The Image Searcher BCID2 PCR Panel can detect the following [...] Abnormal Blood Culture, Routine Isolated: Resulting Agency [facility] Lab Contains abnormal data Culture, Blood 2 Order: [id number] Status: Final result Visible to patient: No [...] PT/OT,discharge planning, see orders. * Jade Bland, SUPERVISOR SHIPPING ROOM - 12/16/2021 12:22 PM EDT [facility] Respiratory Care Department Progress Note As [...] on sodium content of foods from the [facility] Care Manual. Pt did admit that [...] Severe Extremities (HF hx, cellulitis of leg) Dental Hygiene Instructor Strength: Not Performed Nutrition Assessment: Pt was [...] Anthropometric Measures: Height: 5' 5 (165.1 cm) [place] Body Weight (IBW): 125 lbs (57 kg) [...] On: Kcal/kg Weight Used for Energy Requirements: [place] Energy (kcal/day): 3810-5599 kcals (25-30) Weight Used for Protein Requirements: [place] Protein (g/day): 57-68 Fluid (ml/day): per MD [...] current diet Laurence Stanley RD, LD Contact: *[phone] * Ariel Solitario MD - 12/15/2021 1:44 [...] 12/15/2021 12:14 PM EDT Occupational Therapy Facility/Department: [facility] Occupational Therapy Initial Assessment Name: Mikel [...] above performance deficits. Recommend planned D/C for [facility] OT with assits PRN. Prognosis: Good Decision [...] Education Outcome: Verbalized understanding;Demonstrated understanding AM-PAC Score [facility] Inpatient Daily Activity Raw Score: 19 (12/15/211214) [...] 12/15/2021 10:35 AM EDT Physical Therapy Facility/Department: [facility] Physical Therapy Initial Assessment Name: Mikel [...] Prognosis: Good Decision Making: Medium Complexity Exam: [facility] Clinical Presentation: Pt admitted 12/13 with UTI. She has medical history as indicated which contributes to her clinical presentation. She complete functional mobility CGA-SBA with FWW and will benefit from [facility] PT Barriers to Learning: None Requires PT [...] 11:43 AM EDT Spoke with Luisa at [facility] Pharmacy in [place]. Current medication list updated and notified Dr. Solitario. * Emma Sales RN - 12/13/2021 7:04 PM EDT Spoke with son Russell Winston, he is the primary decision maker for his mother. Home medications need to be verified with [facility] pharmacy in [place]. He will call and get a list and bring to hospital tomorrow. He states his mother is normally Alert and oriented, but has been confused the last several days. * Emma Sales RN - 12/13/2021 6:41 PM EDT Attempted to get questions answered in the admission from Arnel eMjias, patients daughter and she said to call the son Russell. Called [phone] and no answer documented in this encounterSUMMA Work Phone: [phone]) 619-943605-10-2022 Miscellaneous Notes* Telephone Encounter - Marilin Rosales [...] pharmacy. Marilin Rosales LPN documented in this encounterPromedica Flower Hospital04-25-2022 History of Present illness Narrative* Komal Cohn DO - 11/30/2021 1:31 PM EDT Images from the original note were not included. [facility] [place] Cohn, DO [address] [place] [address] Date of Evaluation: 11/30/2021 Patient Name: Mikel Winston : 1945 Chief Complaint: Patient presents with: Diabetes Hypertension Results: results from 09/16. Nursing Intake: There are no exam notes on file for this visit. Subjective Ms. Winston is a 76 year old female who presents with the following complaint(s): The history is provided by the patient. No mash processing operator was used. Diabetes She presents for her [...] 30, 2021 2:16 PM. documented in this encounterProm[facility]22 Miscellaneous Notes* Telephone Encounter - Grace [...] pharmacy. Grace Linda LPN documented in this encounterPromedica Flower [facility]01-28-2022 Miscellaneous Notes* Telephone Encounter - Nanette Nelson - 09/04/2021 2:55 PM EST Confirmation number: [id number] Nanette Nelson documented in this encounterPromedica Flower Hospital01-28-2022 Miscellaneous Notes* Telephone Encounter - Marilin [...] pharmacy. Marilin Rosales LPN documented in this encounterPromedica Flower Hospital01-27-2022 History of Present illness Narrative* Komal Cohn, - 09/03/2021 2:23 PM EST Images from the original note were not included. [facility] [place] Komal Cohn, DO [address] [place] [address] Date of Evaluation: 09/03/2021 Patient Name: Mikel Winston : 1945 Chief Complaint: Patient presents with: Cough: x 2 weeks Diabetes Nursing Intake: There are no exam notes on file for this visit. Subjective Ms. Winston is a 76 year old female who presents with the following complaint(s): The history is provided by the patient. No mash processing operator was used. 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 - CONSULT TO CARDIOLOGY 3. [...] September 03, 2021 2:43PM. documented in this encounterPromedica Flower Hospital12-21-2021 Miscellaneous Notes* Telephone Encounter - Marilin [...] pharmacy. Marilin Rosales LPN documented in this encounterPromedica Flower Hospital12-13-2021 Miscellaneous Notes* Telephone Encounter - Marilin [...] pharmacy. Marilin Rosales LPN documented in this encounterPromedica Flower Hospital10-21-2021 History of Present illness Narrative* Komal Cohn DO - 05/28/2021 1:42 PM EDT Images from the original note were not included. [facility] [place] Komal Cohn DO [address] [place] [address] Date of Evaluation: 05/28/2021 Patient Name: Mikel Winston : 1945 Chief Complaint: Patient presents with: Hypertension: check up Hyperlipidemia Diabetes Nursing Intake: There are no exam notes on file for this visit. Subjective Ms. Winston is a 75 year old female who presents with the following complaint(s): The history is provided by the patient. No mash processing operator was used. Hypertension This is a chronic [...] May 28, 2021 2:06PM. documented in this encounterPromedica Flower Hospital08-16-2021 Miscellaneous Notes* Telephone Encounter - Jade [...] pharmacy. Jade Driscoll LPN documented in this encounterPromedica Flower Hospital07-21-2021 Miscellaneous Notes* Telephone Encounter - Alia De La Paz LPN - 02/25/2021 2:14 PM EDT Pharmacy needs diagnoses code on script. Pended. documented in this encounterPromedica Flower Hospital07-19-2021 Miscellaneous Notes* Telephone Encounter - Marilin [...] pharmacy. Marilin Rosales LPN documented in this encounterPromedica Flower Hospital04-21-2021 History of Present illness Narrative* Komal Cohn - 11/26/2020 11:43 AM EDT Images from the original note were not included. [facility] [place] LalitDO [address] [place] [address] Date of Evaluation: 11/26/2020 Patient Name: Mikel Winston : 1945 Subjective Ms. Winston is a 75 year old female who presents for Diabetes, Hypertension, Hyperlipidemia, and RxRefills. The history is provided by the patient. No mash processing operator was used. Hypertension This is a chronic [...] ROS obtained by others. documented in this encounterPromedica Flower Hospital04-20-2021 Miscellaneous Notes* Telephone Encounter - Jade [...] pharmacy. Jade Driscoll LPN documented in this encounterPromedica Flower Hospital01-18-2020 Hospital Discharge instructions* Instructions* Melanie Padilla [...] Everywhere. * Head Injury: Closed: General Info ([place]) * Rib Contusion ([place]) * Black Eye ([place]) * Incentive Spirometer: General Info ([place]) documented in this encounterSUMMA Work Phone: Evaluation note* Diagnosis Essential hypertension- Primary Unspecified essential hypertension Type 2 diabetes mellitus without complication, without long-term current use of insulin ([facility]) Seasonal allergies Allergic rhinitis, cause unspecified documented in this encounter [facility] note* Diagnosis Type 2 diabetes mellitus without complication, without long-term current use of insulin ([facility])- Primary documented in this encounter [facility] note* Diagnosis Primary hypertension- Primary Unspecified essential hypertension Type 2 diabetes mellitus without complication, without long-term current use of insulin ([facility]) Generalized edema Edema Hypokalemia Hypopotassemia documented in this encounter [facility] note* Diagnosis Primary hypertension- Primary Unspecified essential hypertension Hyperlipidemia, mixed Mixed hyperlipidemia Type 2 diabetes mellitus without complication, without long-term current use of insulin ([facility]) documented in this encounter [facility] note* Diagnosis Type 2 diabetes mellitus without complication, without long-term current use of insulin (HCC)- Primary Congestive heart failure, unspecified HF chronicity, unspecified heart failure type (HCC) Hyperlipidemia, mixed Mixed hyperlipidemia Primary hypertension Unspecified essential hypertension Hypothyroidism, acquired Unspecified hypothyroidism documented in this encounter [facility]* Diagnosis Fall, initial encounter- Primary [...] abnormal blood chemistry documented in this encounter [facility]* Diagnosis Other seasonal allergic rhinitis documented in this encounter [facility]* Diagnosis Primary hypertension- Primary Unspecified essential hypertension Mixed hyperlipidemia Statin intolerance Other drug allergy Myalgias documented in this encounter [facility]* Diagnosis Type 2 diabetes mellitus without complications (HCC) Type II or unspecified type diabetes mellitus without mention of complication, not stated as uncontrolled documented in this encounter [facility]* Diagnosis Altered mental status, unspecified altered mental status type- Primary Urinary tract infection without hematuria, site unspecified Acute cystitis without hematuria Acute cystitis documented in this encounter [facility] Work Phone: Evaluation note* Diagnosis Generalized edema Edema Primary hypertension Unspecified essential hypertension documented in this encounter [facility]* Diagnosis Anemia, unspecified type- Primary documented in this encounter [facility]* Diagnosis Gastro-esophageal reflux disease with esophagitis, without bleeding Hypokalemia Hypopotassemia Primary hypertension Unspecified essential hypertension [facility] Diagnosis Abnormal level of blood mineral Other abnormal blood chemistry documented in this encounter [facility]* Diagnosis Hypokalemia- Primary Hypopotassemia documented in this encounter [facility]* Diagnosis CKD (chronic kidney disease) stage 1, GFR 90 ml/min or greater- Primary Chronic kidney disease, Stage I documented in this encounter [facility]* Diagnosis Primary hypertension- Primary Unspecified essential hypertension Hyperlipidemia, mixed Mixed hyperlipidemia Bilateral leg edema Edema Type 2 diabetes mellitus without complication, without long-term current use of insulin (HCC) [facility]* Diagnosis BARRY (acute kidney injury) (HCC)- Primary Acute kidney failure, unspecified documented in this encounter [facility] note* Diagnosis Diabetes ([facility]) Type II or unspecified type diabetes mellitus without mention of complication, not stated as uncontrolled Hypothyroidism, acquired Unspecified hypothyroidism documented in this encounter [facility] note* Diagnosis Gastro-esophageal reflux disease with esophagitis, without bleeding documented in this encounter [facility] note* Diagnosis Primary hypertension- Primary Unspecified essential hypertension Hyperlipidemia, mixed Mixed hyperlipidemia Bilateral leg edema Edema Hypothyroidism, acquired Unspecified hypothyroidism Acute non-recurrent maxillary sinusitis documented in this encounter [facility] note* Diagnosis Abnormal level of blood mineral Other abnormal blood chemistry documented in this encounter [facility] note* Diagnosis Type 2 diabetes mellitus without complication, without long-term current use of insulin (HCC)- Primary documented in this encounter [facility] note* Diagnosis BARRY (acute kidney injury) (CMS/HCC) (HCC)- Primary BARRY (acute kidney injury) ([facility]/HCC) (HCC) Cystitis Unspecified cystitis UTI (urinary tract infection) Urinary tract infection, site not specified documented in this encounter 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 note* Diagnosis Urinary frequency- Primary Right leg swelling Swelling of limb Cellulitis of skin Cellulitis and abscess of unspecified site Bilateral leg edema Edema Class 1 obesity with body mass index (BMI) of 33.0 to 33.9 in adult, unspecified obesity type, unspecified whether serious comorbidity present documented in this encounter [facility] note* Diagnosis Bilateral leg edema- Primary Edema Cellulitis of skin Cellulitis and abscess of unspecified site Class 1 obesity with body mass index (BMI) of 33.0 to 33.9 in adult, unspecified obesity type, unspecified whether serious comorbidity present documented in this encounter [facility] note* Diagnosis Nonrheumatic aortic valve stenosis- Primary documented in this encounter [facility] note* Diagnosis Other specified soft tissue disorders- Primary Other specified soft tissue disorders documented in this encounter [facility] note* Diagnosis Bilateral leg edema Edema documented in this encounter [facility] note* Diagnosis 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) documented in this encounter [facility] note* Diagnosis Coronary artery disease involving coronary bypass graft of [place] heart without angina pectoris documented in this encounter [facility] note* Diagnosis Dysuria- Primary Acute UTI Urinary tract infection, site not specified Chronic kidney disease, stage 3b (HCC) Bilateral leg edema Edema Other depression documented in this encounter [facility] note* Diagnosis Chronic kidney disease, stage 4 (severe) (HCC) documented in this encounter [facility] note* Diagnosis Cellulitis of right lower extremity- Primary Cellulitis of right lower extremity Acute cystitis without hematuria documented in this encounter [facility] note* Diagnosis Primary hypertension- Primary Unspecified essential hypertension Cellulitis of right lower extremity Cellulitis and abscess of leg, except foot Acute cystitis without hematuria Acute cystitis Class 1 obesity with body mass index (BMI) of 34.0 to 34.9 in adult, unspecified obesity type, unspecified whether serious comorbidity present documented in this encounter [facility] note* Diagnosis Nonrheumatic aortic valve stenosis- Primary Coronary artery disease involving coronary bypass graft of [place] heart without angina pectoris documented in this encounter [facility] note* Diagnosis Cellulitis of left lower leg- Primary Cellulitis and abscess of leg, except foot documented in this encounter [facility] note* Diagnosis Nonrheumatic aortic valve stenosis- Primary Acute renal failure superimposed on stage 4 chronic kidney disease, unspecified acute renal failure type (HCC) documented in this encounter [facility] note* Diagnosis Osteoarthritis, unspecified osteoarthritis type, unspecified site- Primary documented in this encounter [facility] note* Diagnosis Other depression Cellulitis of left lower leg Cellulitis and abscess of leg, except foot documented in this encounter [facility] note* Diagnosis Chronic kidney disease, stage 4 (severe) ([facility])- Primary Chronic kidney disease, stage 4 (severe) (HCC) documented in this encounter [facility] note* Diagnosis Coronary artery disease involving coronary bypass graft of [place] heart without angina pectoris Nonrheumatic aortic valve stenosis documented in this encounter [facility] note* Diagnosis Chronic kidney disease, stage 4 (severe) (HCC) documented in this encounter [facility] note* Diagnosis Primary hypertension- Primary Unspecified essential hypertension Type 2 diabetes mellitus with stage 4 chronic kidney disease, without long-term current use of insulin ([facility]) CKD (chronic kidney disease) stage 4, GFR 15-29 ml/min ([facility]) Chronic kidney disease, Stage IV (severe) Cellulitis of left lower leg Cellulitis and abscess of leg, except foot Class 1 obesity with body mass index (BMI) of 33.0 to 33.9 in adult, unspecified obesity type, unspecified whether serious comorbidity present Bilateral leg edema Edema Systolic murmur Undiagnosed cardiac murmurs Other depression documented in this encounter [facility] note* Diagnosis BARRY (acute kidney injury) ([facility])- Primary Encounter for adjustment or management of cardiac device documented in this encounter [facility] note* Diagnosis Symptomatic sinus bradycardia- Primary Symptomatic sinus bradycardia Elevated troponin Other abnormal blood chemistry Elevated brain natriuretic peptide (BNP) level Second degree AV block Other second degree atrioventricular block Symptomatic sinus bradycardia Encounter for adjustment or management of cardiac device documented in this encounter [facility] note* Diagnosis Primary hypertension- Primary Unspecified essential hypertension Systolic murmur Undiagnosed cardiac murmurs Symptomatic sinus bradycardia Other specified cardiac dysrhythmias CKD (chronic kidney disease) stage 4, GFR 15-29 ml/min ([facility]) Chronic kidney disease, Stage IV (severe) Class 1 obesity with body mass index (BMI) of 32.0 to 32.9 in adult, unspecified obesity type, unspecified whether serious comorbidity present documented in this encounter [facility] note* Diagnosis Acute cystitis with hematuria- Primary Altered mental status, unspecified altered mental status type Acute cystitis with hematuria Encounter for adjustment or management of cardiac device documented in this encounter [facility] note* Diagnosis Chronic kidney disease, stage 4 (severe) ([facility])- Primary Chronic kidney disease, stage 4 (severe) (HCC) Chronic kidney disease, stage 4 (severe) (HCC) Encounter for adjustment or management of cardiac device [facility] Diagnosis Nonrheumatic aortic valve stenosis- Primary [facility] Diagnosis Coronary artery disease involving coronary bypass graft of [place] heart without angina pectoris Essential hypertension Unspecified essential hypertension Encounter for adjustment or management of cardiac device [facility] noteNo assessment information availableWMcCullough-Hyde [facility] Work Phone: Evaluation note* Diagnosis Second degree heart block- Primary Other second degree atrioventricular block Essential hypertension Unspecified essential hypertension Cardiac pacemaker in situ Encounter for adjustment or management of cardiac device documented in this encounter [facility] for referral (narrative)* Diagnostic Procedure Only (Routine) - Pending Review Specialty Diagnoses / Procedures Referred By Jen islas Referred To Contact US IMAGING Diagnoses BARRY (acute kidney injury) ([facility]) Procedures US KIDNEY/BLADDER US RETROPERITONEAL REAL TIME W/IMAGE COMPLETE Komal Cohn DO [address] [place] [address] Us Imaging Referral ID Status Reason Start Date Expiration Date Visits Requested Visits Authorized [id number] Pending Review Auto-Generat ed Referral 05/03/2022 06/02/2023 1 1 [facility] for referral (narrative)* Diagnostic Procedure Only (Urgent) - Authorized Specialty Diagnoses / Procedures Referred By Contac t Referred To Contact US IMAGING Diagnoses Right leg swelling Procedures US DVT LOWER RIGHT DUP-SCAN XTR VEINS UNILATERAL/LIMITED STUDY Komal Cohn DO [address] [place] [address] Us Imaging Referral ID Status Reason Start Date Expiration Date Visits Requested Visits Authorized [id number] Authorized Auto-Generat ed Referral 03/07/2023 04/05/2024 1 1 [facility] for referral (narrative)* Diagnostic Procedure Only (Routine) - Pending Review Specialty Diagnoses / Procedures Referred By Contac t Referred To Contact US IMAGING Diagnoses CKD (chronic kidney disease) stage 4, GFR 15-29 ml/min (HCC) Procedures US KIDNEY/BLADDER US RETROPERITONEAL REAL TIME W/IMAGE COMPLETE [place] [address] [place] [address] Referral ID Status Reason Start Date Expiration Date Visits Requested Visits Authorized [id number] Pending Review Auto-Generat ed Referral 01/06/2024 02/04/2025 1 1 * Consult, Test, Treat (Routine) - Authorized Specialty Diagnoses / Procedures Referred By Contac t Referred To Contact Nephrology Diagnoses CKD (chronic kidney disease) stage 4, GFR 15-29 ml/min (HCC) Procedures CONSULT TO NEPHROLOGY OFFICE/OUTPATIENT [facility] 60 MINUTES Komal Cohn, [place] [address] Referral ID Status Reason Start Date Expiration Date Visits Requested Visits Authorized [id number] Authorized PCP Requested Referral 01/06/2024 01/05/2025 1 1 * Consult, Test, Treat (Routine) - Authorized Specialty Diagnoses / Procedures Referred By Contac t Referred To Contact Ophthalmology Diagnoses Screening for diabetic retinopathy Procedures CONSULT TO OPHTHALMOLOGY OFFICE/OUTPATIENT [facility] 60 MINUTES Komal Cohn, [place] [address] Referral ID Status Reason Start Date Expiration Date Visits Requested Visits Authorized [id number] Authorized PCP Requested Referral 01/06/2024 01/05/2025 1 1 [facility]ative)No reason for referral information availableWMcCullough-Hyde Memorial Hospital Work Phone: Assessments Diagnosis Acute embolism and thrombosis of other specified deep vein of right lower extremity (HCC) Diagnosis Bilateral leg edema- Primary Edema Diagnosis Gastro-esophageal reflux disease with esophagitis, without bleeding Advance Directives No Advanced Directives Records FoundDocuments on File Type Date Recorded Patient Prepress Proofer Expl anation ACP-Advance Directive ACP-Power of Sales Representative Livestock Latest Code Status on File Code Status Date Activated Date Inactivated Comments Full Code 12/27/2017 3:56 PM 12/30/2017 2:31 PM Full Code 12/27/2017 8:17 AM 12/27/2017 3:56 PM Full Code 12/26/2017 1:59 PM 12/27/2017 8:17 AM Documents on File Type Date Recorded Patient Prepress Proofer Expl anation Advance Directives and Living Will Power of Sales Representative [employer]estock Latest Code Status on File Code Status Date Activated Date Inactivated Comments Full Code 12/13/2021 6:07 PM Full Code 12/27/2017 3:56 PM 12/30/2017 2:31 PM Healthcare Agents on File Name Relationship Healthcare Agent Relationshi p Communication [facility] Primary Decision Maker Latest Code [...] type (HCC) Procedures CONSULT TO CARDIOLOGY OFFICE/OUTPATIENT [facility] 60-74 MINUTES Komal oChn DO [address] [place] [address] Referral ID Status Reason Start Date Expiration Date Visits Requested Visits Authorized [id number] Pending Review PCP Requested Referral 09/03/2021 09/03/2022 1 1 Specialty Diagnoses / Procedures Referred By Contac t Referred To Contact Cardiology Diagnoses Nonrheumatic aortic valve stenosis Procedures Transthoracic echocardiogram (TTE) complete with contrast, bubble, strain, and 3D PRN IA ECHO TTHRC R-T 2D W/WOM-MODE COMPL SPEC&COLR D IA TTE W OR WO AKIN FARIASDOPPLER Charley Parker, SHOVEL ENGINEER - INDUSTRIAL ENGINEERING MANAGER [address], [address] [place] [address] Referral ID Status Reason Start Date Expiration Date V isits Requested Visits Authorized [id number] Closed Perform Procedure 10/19/2022 01/16/2023 1 1 Specialty Diagnoses / Procedures Referred By Contac t Referred To Contact Cardiology Diagnoses Other specified soft tissue disorders Procedures Vascular US lower extremity venous duplex [address] [address] Referral ID Status Reason Start Date Expiration Date V isits Requested Visits Authorized [id number] Closed Perform Procedure 03/07/2023 09/03/2023 1 1 Specialty Diagnoses / Procedures Referred By Contac t Referred To Contact Terence Gonzalez MD [address] [place] [address] Referral ID Status Reason Start Date Expiration Date V isits Requested Visits Authorized [id number] Pending Review 02/02/2024 07/31/2024 1 1 Specialty Diagnoses / Procedures Referred By Contac t Referred To Contact Cardiology Diagnoses Coronary artery disease involving coronary bypass graft of [place] heart without angina pectoris Nonrheumatic aortic valve stenosis Procedures Transthoracic echocardiogram (TTE) complete with contrast, bubble, strain, and 3D PRN IA ECHO TTHRC R-T 2D W/WOM-MODE COMPL SPEC&COLR D IA TTE W OR WO QUINTON JAMES Roger B, MD [address] [place] [address] Referral ID Status Reason Start Date Expiration Date V isits Requested Visits Authorized [id number] Pending Review 03/14/2024 03/14/2025 1 1 Referral ID Status Reason Start Date Expiration Date Visits Re quested Visits Authorized [id number] Closed 03/15/2024 06/12/2024 1 1 Specialty Diagnoses / Procedures Referred By Jen t Referred To Contact Cardiology Diagnoses Chronic kidney disease, stage 4 (severe) (HCC) Procedures Vascular US renal artery duplex complete Le Dobson, SHOVEL ENGINEER - INDUSTRIAL ENGINEERING MANAGER [address] [place] [address] Referral ID Status Reason Start Date Expiration Date Visits Re quested Visits Authorized [id number] Closed 04/06/2024 04/06/2025 1 1 Specialty Diagnoses / Procedures Referred By Jen t Referred To Contact Diagnoses Type 2 diabetes mellitus without complication, without long-term current use of insulin ([facility]) [place] [phone] Referral ID Status Reason Start Date Expiration Date Visits Re quested Visits Authorized [id number] Denied 04/27/2024 06/26/2024 1 1 Referral ID Status Reason Start Date Expiration Date Visits Requested Visits Authorized [id number] Pending Review Perform Procedure 09/30/2022 03/29/2023 1 1 Summary Purpose Family History No Family History Records FoundNo Family History Records FoundNo Family History Records FoundNo Family History Records FoundNo Family History Records FoundNo Family History Records Found Chief Complaint and Reason for Visit Chief Complaint Admit Date LAB WORK July 11, 2024 5 :35am [facility] WORK July 17 5:00am LABWORK July 18, 2024 5:00am LAB WORK July 19, 2024 5:00am [facility] WORK July 20 5:00am [facility] LAB WORK July 25 4:00am [facility] LAB WORK August 02 4:00am LABWORK August 03, 2024 5:00am [facility] LAB WORK August 07 5:00am [facility] LAB WORK September 25 4:00am [facility] LAB WORK October 05 5:00am [facility] LAB WORK October 15, 2024 5 :00am Chief Complaint Admit Date [facility] LAB WORK July 17 5:00am LABWORK July 18, 2024 5:00am LAB WORK July 19, 2024 5:00am [facility] LAB WORK July 20 5:00am [facility] LAB WORK July 25 4:00am [facility] LAB WORK August 02 4:00am LABWORK August 03, 2024 5:00am [facility] LAB WORK August 07 5:00am [facility] LAB WORK September 25 4:00am [facility] LAB WORK October 05 5:00am [facility] LAB WORK October 15, 2024 5 :00am LABWORK October 26, 2024 5:0 0am Chief Complaint Admit Date [facility] LAB WORK August 02 4:00am LABWORK August 03, 2024 5:00am [facility] LAB WORK August 07 5:00am [facility] LAB WORK September 25 4:00am [facility] LAB WORK October 05 5:00am [facility] LAB WORK October 15, 2024 5 :00am LABWORK October 26, 2024 5:0 0am [facility] LAB WORK November 02, 2024 5 :00am Additional Source Comments Source Comments (unrecognize d section and content) In the event this informatio n is protected by the Federal Confidentiality of Alcohol and Drug Abuse Patient Records regulations: The Federal rules restrict any use of the information to criminally investigate or prosecute any alcohol or drug abuse patient.[facility] the event this information is protected by the Federal Confidentiality of Alcohol and Drug Abuse Patient Records regulations: The Federal rules restrict any use of the information to criminally investigate or prosecute any alcohol or drug abuse patient.[facility]In the event this information is protected by the Federal Confidentiality of Alcohol and Drug Abuse Patient Records regulations: The Federal rules restrict any use of the information to criminally investigate or prosecute any alcohol or drug abuse patient.[facility]In the event this information is protected by the Federal Confidentiality of Alcohol and Drug Abuse Patient Records regulations: The Federal rules restrict any use of the information to criminally investigate or prosecute any alcohol or drug abuse patient.[facility] HospitalIn the event this information is protected by the Federal Confidentiality of Alcohol and Drug Abuse Patient Records regulations: The Federal rules restrict any use of the information to criminally investigate or prosecute any alcohol or drug abuse patient.[facility] HospitalIn the event this information is protected by the Federal Confidentiality of Alcohol and Drug Abuse Patient Records regulations: The Federal rules restrict any use of the information to criminally investigate or prosecute any alcohol or drug abuse patient.[facility] HospitalIn the event this information is protected by the Federal Confidentiality of Alcohol and Drug Abuse Patient Records regulations: The Federal rules restrict any use of the information to criminally investigate or prosecute any alcohol or drug abuse patient.[facility] HospitalIn the event this information is protected by the Federal Confidentiality of Alcohol and Drug Abuse Patient Records regulations: The Federal rules restrict any use of the information to criminally investigate or prosecute any alcohol or drug abuse patient.[facility] HospitalIn the event this information is protected by the Federal Confidentiality of Alcohol and Drug Abuse Patient Records regulations: The Federal rules restrict any use of the information to criminally investigate or prosecute any alcohol or drug abuse patient.[facility] HospitalIn the event this information is protected by the Federal Confidentiality of Alcohol and Drug Abuse Patient Records regulations: The Federal rules restrict any use of the information to criminally investigate or prosecute any alcohol or drug abuse patient.[facility] HospitalIn the event this information is protected by the Federal Confidentiality of Alcohol and Drug Abuse Patient Records regulations: The Federal rules restrict any use of the information to criminally investigate or prosecute any alcohol or drug abuse patient.[facility] HospitalIn the event this information is protected by the Federal Confidentiality of Alcohol and Drug Abuse Patient Records regulations: The Federal rules restrict any use of the information to criminally investigate or prosecute any alcohol or drug abuse patient.[facility] HospitalIn the event this information is protected by the Federal Confidentiality of Alcohol and Drug Abuse Patient Records regulations: The Federal rules restrict any use of the information to criminally investigate or prosecute any alcohol or drug abuse patient.[facility] HospitalIn the event this information is protected by the Federal Confidentiality of Alcohol and Drug Abuse Patient Records regulations: The Federal rules restrict any use of the information to criminally investigate or prosecute any alcohol or drug abuse patient.[facility] HospitalIn the event this information is protected by the Federal Confidentiality of Alcohol and Drug Abuse Patient Records regulations: The Federal rules restrict any use of the information to criminally investigate or prosecute any alcohol or drug abuse patient.[facility] HospitalIn the event this information is protected by the Federal Confidentiality of Alcohol and Drug Abuse Patient Records regulations: The Federal rules restrict any use of the information to criminally investigate or prosecute any alcohol or drug abuse patient.[facility] HospitalIn the event this information is protected by the Federal Confidentiality of Alcohol and Drug Abuse Patient Records regulations: The Federal rules restrict any use of the information to criminally investigate or prosecute any alcohol or drug abuse patient.[facility] HospitalIn the event this information is protected by the Federal Confidentiality of Alcohol and Drug Abuse Patient Records regulations: The Federal rules restrict any use of the information to criminally investigate or prosecute any alcohol or drug abuse patient.[facility] HospitalIn the event this information is protected by the Federal Confidentiality of Alcohol and Drug Abuse Patient Records regulations: The Federal rules restrict any use of the information to criminally investigate or prosecute any alcohol or drug abuse patient.[facility] HospitalIn the event this information is protected by the Federal Confidentiality of Alcohol and Drug Abuse Patient Records regulations: The Federal rules restrict any use of the information to criminally investigate or prosecute any alcohol or drug abuse patient.[facility] HospitalIn the event this information is protected by the Federal Confidentiality of Alcohol and Drug Abuse Patient Records regulations: The Federal rules restrict any use of the information to criminally investigate or prosecute any alcohol or drug abuse patient.[facility] HospitalIn the event this information is protected by the Federal Confidentiality of Alcohol and Drug Abuse Patient Records regulations: The Federal rules restrict any use of the information to criminally investigate or prosecute any alcohol or drug abuse patient.[facility] HospitalIn the event this information is protected by the Federal Confidentiality of Alcohol and Drug Abuse Patient Records regulations: The Federal rules restrict any use of the information to criminally investigate or prosecute any alcohol or drug abuse patient.[facility] HospitalIn the event this information is protected by the Federal Confidentiality of Alcohol and Drug Abuse Patient Records regulations: The Federal rules restrict any use of the information to criminally investigate or prosecute any alcohol or drug abuse patient.[facility] HospitalIn the event this information is protected by the Federal Confidentiality of Alcohol and Drug Abuse Patient Records regulations: The Federal rules restrict any use of the information to criminally investigate or prosecute any alcohol or drug abuse patient.[facility] HospitalIn the event this information is protected by the Federal Confidentiality of Alcohol and Drug Abuse Patient Records regulations: The Federal rules restrict any use of the information to criminally investigate or prosecute any alcohol or drug abuse patient.[facility] HospitalIn the event this information is protected by the Federal Confidentiality of Alcohol and Drug Abuse Patient Records regulations: The Federal rules restrict any use of the information to criminally investigate or prosecute any alcohol or drug abuse patient.[facility] HospitalIn the event this information is protected by the Federal Confidentiality of Alcohol and Drug Abuse Patient Records regulations: The Federal rules restrict any use of the information to criminally investigate or prosecute any alcohol or drug abuse patient.[facility] HospitalIn the event this information is protected by the Federal Confidentiality of Alcohol and Drug Abuse Patient Records regulations: The Federal rules restrict any use of the information to criminally investigate or prosecute any alcohol or drug abuse patient.[facility] HospitalIn the event this information is protected by the Federal Confidentiality of Alcohol and Drug Abuse Patient Records regulations: The Federal rules restrict any use of the information to criminally investigate or prosecute any alcohol or drug abuse patient.[facility] HospitalIn the event this information is protected by the Federal Confidentiality of Alcohol and Drug Abuse Patient Records regulations: The Federal rules restrict any use of the information to criminally investigate or prosecute any alcohol or drug abuse patient.[facility] HospitalIn the event this information is protected by the Federal Confidentiality of Alcohol and Drug Abuse Patient Records regulations: The Federal rules restrict any use of the information to criminally investigate or prosecute any alcohol or drug abuse patient.[facility] HospitalIn the event this information is protected by the Federal Confidentiality of Alcohol and Drug Abuse Patient Records regulations: The Federal rules restrict any use of the information to criminally investigate or prosecute any alcohol or drug abuse patient.[facility] HospitalIn the event this information is protected by the Federal Confidentiality of Alcohol and Drug Abuse Patient Records regulations: The Federal rules restrict any use of the information to criminally investigate or prosecute any alcohol or drug abuse patient.[facility] HospitalIn the event this information is protected by the Federal Confidentiality of Alcohol and Drug Abuse Patient Records regulations: The Federal rules restrict any use of the information to criminally investigate or prosecute any alcohol or drug abuse patient.[facility] HospitalIn the event this information is protected by the Federal Confidentiality of Alcohol and Drug Abuse Patient Records regulations: The Federal rules restrict any use of the information to criminally investigate or prosecute any alcohol or drug abuse patient.[facility] HospitalIn the event this information is protected by the Federal Confidentiality of Alcohol and Drug Abuse Patient Records regulations: The Federal rules restrict any use of the information to criminally investigate or prosecute any alcohol or drug abuse patient.[facility] HospitalIn the event this information is protected by the Federal Confidentiality of Alcohol and Drug Abuse Patient Records regulations: The Federal rules restrict any use of the information to criminally investigate or prosecute any alcohol or drug abuse patient.[facility] HospitalIn the event this information is protected by the Federal Confidentiality of Alcohol and Drug Abuse Patient Records regulations: The Federal rules restrict any use of the information to criminally investigate or prosecute any alcohol or drug abuse patient.[facility] HospitalIn the event this information is protected by the Federal Confidentiality of Alcohol and Drug Abuse Patient Records regulations: The Federal rules restrict any use of the information to criminally investigate or prosecute any alcohol or drug abuse patient.[facility] HospitalIn the event this information is protected by the Federal Confidentiality of Alcohol and Drug Abuse Patient Records regulations: The Federal rules restrict any use of the information to criminally investigate or prosecute any alcohol or drug abuse patient.[facility] HospitalIn the event this information is protected by the Federal Confidentiality of Alcohol and Drug Abuse Patient Records regulations: The Federal rules restrict any use of the information to criminally investigate or prosecute any alcohol or drug abuse patient.[facility] HospitalIn the event this information is protected by the Federal Confidentiality of Alcohol and Drug Abuse Patient Records regulations: The Federal rules restrict any use of the information to criminally investigate or prosecute any alcohol or drug abuse patient.[facility] HospitalIn the event this information is protected by the Federal Confidentiality of Alcohol and Drug Abuse Patient Records regulations: The Federal rules restrict any use of the information to criminally investigate or prosecute any alcohol or drug abuse patient.[facility] HospitalIn the event this information is protected by the Federal Confidentiality of Alcohol and Drug Abuse Patient Records regulations: The Federal rules restrict any use of the information to criminally investigate or prosecute any alcohol or drug abuse patient.[facility] HospitalIn the event this information is protected by the Federal Confidentiality of Alcohol and Drug Abuse Patient Records regulations: The Federal rules restrict any use of the information to criminally investigate or prosecute any alcohol or drug abuse patient.[facility] HospitalIn the event this information is protected by the Federal Confidentiality of Alcohol and Drug Abuse Patient Records regulations: The Federal rules restrict any use of the information to criminally investigate or prosecute any alcohol or drug abuse patient.[facility] HospitalIn the event this information is protected by the Federal Confidentiality of Alcohol and Drug Abuse Patient Records regulations: The Federal rules restrict any use of the information to criminally investigate or prosecute any alcohol or drug abuse patient.[facility] HospitalIn the event this information is protected by the Federal Confidentiality of Alcohol and Drug Abuse Patient Records regulations: The Federal rules restrict any use of the information to criminally investigate or prosecute any alcohol or drug abuse patient.[facility] HospitalIn the event this information is protected by the Federal Confidentiality of Alcohol and Drug Abuse Patient Records regulations: The Federal rules restrict any use of the information to criminally investigate or prosecute any alcohol or drug abuse patient.[facility] HospitalIn the event this information is protected by the Federal Confidentiality of Alcohol and Drug Abuse Patient Records regulations: The Federal rules restrict any use of the information to criminally investigate or prosecute any alcohol or drug abuse patient.[facility] HospitalIn the event this information is protected by the Federal Confidentiality of Alcohol and Drug Abuse Patient Records regulations: The Federal rules restrict any use of the information to criminally investigate or prosecute any alcohol or drug abuse patient.[facility] HospitalIn the event this information is protected by the Federal Confidentiality of Alcohol and Drug Abuse Patient Records regulations: The Federal rules restrict any use of the information to criminally investigate or prosecute any alcohol or drug abuse patient.[facility] HospitalIn the event this information is protected by the Federal Confidentiality of Alcohol and Drug Abuse Patient Records regulations: The Federal rules restrict any use of the information to criminally investigate or prosecute any alcohol or drug abuse patient.[facility] HospitalIn the event this information is protected by the Federal Confidentiality of Alcohol and Drug Abuse Patient Records regulations: The Federal rules restrict any use of the information to criminally investigate or prosecute any alcohol or drug abuse patient.[facility] HospitalIn the event this information is protected by the Federal Confidentiality of Alcohol and Drug Abuse Patient Records regulations: The Federal rules restrict any use of the information to criminally investigate or prosecute any alcohol or drug abuse patient.[facility] HospitalIn the event this information is protected by the Federal Confidentiality of Alcohol and Drug Abuse Patient Records regulations: The Federal rules restrict any use of the information to criminally investigate or prosecute any alcohol or drug abuse patient.[facility] HospitalIn the event this information is protected by the Federal Confidentiality of Alcohol and Drug Abuse Patient Records regulations: The Federal rules restrict any use of the information to criminally investigate or prosecute any alcohol or drug abuse patient.[facility] HospitalIn the event this information is protected by the Federal Confidentiality of Alcohol and Drug Abuse Patient Records regulations: The Federal rules restrict any use of the information to criminally investigate or prosecute any alcohol or drug abuse patient.[facility] HospitalIn the event this information is protected by the Federal Confidentiality of Alcohol and Drug Abuse Patient Records regulations: The Federal rules restrict any use of the information to criminally investigate or prosecute any alcohol or drug abuse patient.[facility] HospitalIn the event this information is protected by the Federal Confidentiality of Alcohol and Drug Abuse Patient Records regulations: The Federal rules restrict any use of the information to criminally investigate or prosecute any alcohol or drug abuse patient.[facility] HospitalIn the event this information is protected by the Federal Confidentiality of Alcohol and Drug Abuse Patient Records regulations: The Federal rules restrict any use of the information to criminally investigate or prosecute any alcohol or drug abuse patient.[facility] HospitalIn the event this information is protected by the Federal Confidentiality of Alcohol and Drug Abuse Patient Records regulations: The Federal rules restrict any use of the information to criminally investigate or prosecute any alcohol or drug abuse patient.[facility] HospitalIn the event this information is protected by the Federal Confidentiality of Alcohol and Drug Abuse Patient Records regulations: The Federal rules restrict any use of the information to criminally investigate or prosecute any alcohol or drug abuse patient.[facility] HospitalIn the event this information is protected by the Federal Confidentiality of Alcohol and Drug Abuse Patient Records regulations: The Federal rules restrict any use of the information to criminally investigate or prosecute any alcohol or drug abuse patient.[facility] HospitalIn the event this information is protected by the Federal Confidentiality of Alcohol and Drug Abuse Patient Records regulations: The Federal rules restrict any use of the information to criminally investigate or prosecute any alcohol or drug abuse patient.[facility] HospitalIn the event this information is protected by the Federal Confidentiality of Alcohol and Drug Abuse Patient Records regulations: The Federal rules restrict any use of the information to criminally investigate or prosecute any alcohol or drug abuse patient.[facility] HospitalIn the event this information is protected by the Federal Confidentiality of Alcohol and Drug Abuse Patient Records regulations: The Federal rules restrict any use of the information to criminally investigate or prosecute any alcohol or drug abuse patient.[facility] HospitalIn the event this information is protected by the Federal Confidentiality of Alcohol and Drug Abuse Patient Records regulations: The Federal rules restrict any use of the information to criminally investigate or prosecute any alcohol or drug abuse patient.[facility] HospitalIn the event this information is protected by the Federal Confidentiality of Alcohol and Drug Abuse Patient Records regulations: The Federal rules restrict any use of the information to criminally investigate or prosecute any alcohol or drug abuse patient.[facility] HospitalIn the event this information is protected by the Federal Confidentiality of Alcohol and Drug Abuse Patient Records regulations: The Federal rules restrict any use of the information to criminally investigate or prosecute any alcohol or drug abuse patient.[facility] HospitalIn the event this information is protected by the Federal Confidentiality of Alcohol and Drug Abuse Patient Records regulations: The Federal rules restrict any use of the information to criminally investigate or prosecute any alcohol or drug abuse patient.[facility] HospitalIn the event this information is protected by the Federal Confidentiality of Alcohol and Drug Abuse Patient Records regulations: The Federal rules restrict any use of the information to criminally investigate or prosecute any alcohol or drug abuse patient.[facility] HospitalIn the event this information is protected by the Federal Confidentiality of Alcohol and Drug Abuse Patient Records regulations: The Federal rules restrict any use of the information to criminally investigate or prosecute any alcohol or drug abuse patient.[facility] HospitalIn the event this information is protected by the Federal Confidentiality of Alcohol and Drug Abuse Patient Records regulations: The Federal rules restrict any use of the information to criminally investigate or prosecute any alcohol or drug abuse patient.[facility] HospitalIn the event this information is protected by the Federal Confidentiality of Alcohol and Drug Abuse Patient Records regulations: The Federal rules restrict any use of the information to criminally investigate or prosecute any alcohol or drug abuse patient.[facility] HospitalIn the event this information is protected by the Federal Confidentiality of Alcohol and Drug Abuse Patient Records regulations: The Federal rules restrict any use of the information to criminally investigate or prosecute any alcohol or drug abuse patient.[facility] HospitalIn the event this information is protected by the Federal Confidentiality of Alcohol and Drug Abuse Patient Records regulations: The Federal rules restrict any use of the information to criminally investigate or prosecute any alcohol or drug abuse patient.[facility] HospitalIn the event this information is protected by the Federal Confidentiality of Alcohol and Drug Abuse Patient Records regulations: The Federal rules restrict any use of the information to criminally investigate or prosecute any alcohol or drug abuse patient.[facility] the event this information is protected by the Federal Confidentiality of Alcohol and Drug Abuse Patient Records regulations: The Federal rules restrict any use of the information to criminally investigate or prosecute any alcohol or drug abuse patient.[facility] Reason for Visit (unrecogniz ed section [...] tract infection) Cystitis BARRY (acute kidney injury) ([facility]/HCC) ([facility]) Procedures . Pola Henderson MD [address] [place] [address] [facility] [address] [place] [address] Referral ID Status Reason Start Date Expiration Date Visits Re quested Visits Authorized [id number] 1 1 Specialty Diagnoses / Procedures Referred By Jen islas Referred To Contact Diagnoses Nonrheumatic aortic (valve) stenosis Procedures IA ECHO TTHRC R-T 2D W/WOM-MODE COMPL SPEC&COLR D [facility] Non-Invasive Cardiology [address] [place] [address] Referral ID Status Reason Start Date Expiration Date Visits Re quested Visits Authorized [id number] 1 1 Reason Onset Date Comments Results 12/09/2022 Echo Reason Comments Appointment Specialty Diagnoses / Procedures Referred By Jen islas Referred To Contact Cardiology Diagnoses Other specified soft tissue disorders Procedures Vascular US lower extremity venous duplex right [facility], [address] [place] [address] Referral ID Status Reason Start Date Expiration Date V isits Requested Visits Authorized [id number] Closed Perform Procedure 03/07/2023 09/03/2023 1 1 [...] kidney disease state 4 gfr 15-29 confirm [id number] Reason Comments Consult Consult to ophthalmo logy, screening for diabetic retinopathy confirm [id number] Reason Comments Follow Up 4 week follow [...] without hematuria Procedures . Sukhi Maurer MD [address] [address] [facility] 4s M[facility] [address] [place] [address] Referral ID Status Reason Start Date Expiration Date Visits Re quested Visits Authorized [id number] 1 1 Reason Onset Date Comments Transition Of Care 02/08/2024 [facility] 02/02/24 Reason Onset Date Comments Transition Of Care 02/15/2024 Discharged fr [facility] to Home Reason Onset Date Comments Transition Of Care 02/15/2024 DC SNF 02/13/24 Reason Comments prescription Reason Onset Date Comments Transition Of Care 02/29/2024 Reason Comments Transition Of Care 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 Nonrheumatic aortic valve stenosis Procedures Transthoracic echocardiogram (TTE) complete with contrast, bubble, strain, and 3D PRN IA ECHO TTHRC R-T 2D W/WOM-MODE COMPL SPEC&COLR D IA TTE W OR WO FOL WCON,DOPPLER Jose Joel MD [address] [place] [address] Referral ID Status Reason Start Date Expiration Date Visits Re quested Visits Authorized [id number] Closed 03/15/2024 06/12/2024 1 1 Specialty Diagnoses / Procedures Referred By Jen islas Referred To Contact Cardiology Diagnoses Chronic kidney disease, stage 4 (severe) (HCC) Procedures Vascular US renal artery duplex complete Le Dobson, SHOVEL ENGINEER - INDUSTRIAL ENGINEERING MANAGER [address] [place] [address] Referral ID Status Reason Start Date Expiration Date Visits Re quested Visits Authorized [id number] Closed 04/06/2024 04/06/2025 1 1 Reason Comments [...] sinus bradycardia Procedures - Matthew Morillo MD [address] [place] [address] Phone: tel: fax: [facility] Cardiac Progressive Care Unit PCU [address]E [address] [address] Phone: tel: Referral ID Status Reason Start Date Expiration Date Visits Re quested Visits Authorized [id number] 1 1 Reason Comments Reason Comments Hospital Discharge 06/01/24 [facility], pace maker placement. Skin Check Skin [...] status, unspecified altered mental status type Procedures [id number] cystitis with hematuria Erinn Santoro MD [address] [place] [address] Phone: tel: fax: [facility] Intensive Care Unit ICU 2 [address] [place] [address] Phone: tel: Referral ID Status Reason Start Date Expiration Date Visits Re quested Visits Authorized [id number] 1 1 Reason Onset Date Comments Transition [...] also 500mg every day once a day. Superior showed 1,000mg BID. Patient was seen yesterday. [...] Care Teams (unrecognized sec tion and content) 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 Start Date End Date LalitKomal greenberg, DO [address] [place] [address] PCP - General Family Practice 05/22/18 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 Start Date End Date LalitKomal greenberg, DO [address] [place] [address] PCP - General Family Practice 05/22/18 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 Start Date End Date LaltiKomal greenberg, DO [address] [place] [address] PCP - General Family Practice 05/22/18 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 Start Date End Date Komal Cohn, DO [address] [place] [address] PCP - General Family Practice 05/22/18 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 Start Date End Date LalitKomal greenberg, DO [address] [place] [address] PCP - General Family Practice 05/22/18 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 Start Date End Date Lalit, [place] Luna, DO [address] [place] [address] PCP - General Family Practice 05/22/18 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 Start Date End Date LalitLennieKomal Maryan, DO [address] [place] [address] PCP - General Family Practice 05/22/18 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 Start Date End Date Komal Cohn [address] [place] [address] PCP - General Family Practice 05/22/18 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 Start Date End Date Komal Cohn DO [address] [place] [address] PCP - General 04/16/15 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 Start Date End Date Komal Cohn [address] [address] PCP - General Family Practice 05/22/18 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 Start Date End Date Komal Cohn [address] [address] PCP - General Family Practice 05/22/18 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 Start Date End Date Komal Cohn [address] [address] PCP - General Family Practice 05/22/18 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 Start Date End Date Komal Cohn [address] [address] PCP - General Family Practice 05/22/18 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 Start Date End Date Komal Cohn [address] [address] PCP - General Family Practice 05/22/18 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 Start Date End Date Komal Cohn [address] [place] [address] PCP - General Family Medicine 05/22/18 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 Start Date End Date Komal Cohn, DO [address] [place] [address] PCP - General Family Medicine 05/22/18 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 Start Date End Date Komal Cohn, DO [address] [place] [address] PCP - General Family Medicine 05/22/18 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 Start Date End Date Komal Cohn, DO [address] [place] [address] PCP - General Family Medicine 05/22/18 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 Start Date End Date Komal Cohn, DO [address] [place] [address] PCP - General Family Medicine 05/22/18 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 Start Date End Date Komal Cohn, DO [address] [place] [address] PCP - General Family Medicine 05/22/18 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 Start Date End Date Komal Cohn, DO [address] [place] [address] PCP - General Family Medicine 05/22/18 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 Start Date End Date Komal Cohn, DO [address] [place] [address] PCP - General Family Medicine 05/22/18 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 Start Date End Date Komal Cohn, DO [address] [place] [address] PCP - General Family Medicine 05/22/18 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 Start Date End Date Komal Cohn DO [address] [place] [address] PCP - General Family Medicine 05/22/18 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 Start Date End Date Komal Cohn DO [address] [place] [address] PCP - General Family Medicine 05/22/18 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 Start Date End Date Komal Cohn DO [address] [place] [address] PCP - General Family Medicine 05/22/18 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 Start Date End Date Komal Cohn DO [address] [place] [address] PCP - General 02/05/18 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 Start Date End Date Komal Cohn DO [address] [place] [address] PCP - General Family Medicine 05/22/18 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 Start Date End Date Komal Cohn DO [address] [place] [address] PCP - General 02/05/18 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 Start Date End Date Komal Cohn DO [address] [place] [address] PCP - General 02/05/18 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 Start Date End Date Komal Cohn DO [address] [place] [address] PCP - General Family Medicine 05/22/18 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 Start Date End Date Komal Cohn DO [address] [place] [address] PCP - General Family Medicine 05/22/18 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 Start Date End Date Komal Cohn DO [address] [place] [address] PCP - General Family Medicine 05/22/18 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 Start Date End Date Komal Cohn DO [address] [place] [address] PCP - General Family Medicine 05/22/18 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 Start Date End Date Komal Cohn DO [address] [place] [address] PCP - General 02/05/18 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 Start Date End Date Komal Cohn DO [address] [place] [address] PCP - General Family Medicine 05/22/18 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 Start Date End Date Komal Cohn DO [address] [place] [address] PCP - General Family Medicine 05/22/18 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 Start Date End Date Komal Cohn DO [address] [place] [address] PCP - General Family Medicine 05/22/18 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 Start Date End Date Komal Cohn DO [address] [place] [address] PCP - General 02/05/18 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 Start Date End Date Komal Cohn DO [address] [place] [address] PCP - General Family Medicine 05/22/18 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 Start Date End Date Komal Cohn DO [address] [place] [address] PCP - General Family Medicine 05/22/18 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 Start Date End Date Komal Cohn DO [address] [place] [address] PCP - General Family Medicine 05/22/18 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 Start Date End Date Komal Cohn DO [address] [place] [address] PCP - General Family Medicine 05/22/18 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 Start Date End Date Komal Cohn DO [address] [place] [address] PCP - General Family Medicine 05/22/18 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 Start Date End Date Komal Cohn DO [address] [place] [address] PCP - General 02/05/18 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 Start Date End Date Komal Cohn DO [address] [place] [address] PCP - General Family Medicine 05/22/18 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 Start Date End Date Komal Cohn DO [address] [place] [address] PCP - General Family Medicine 05/22/18 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 Start Date End Date Komal Cohn DO [address] [place] [address] PCP - General 02/05/18 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 Start Date End Date Komal Cohn DO [address] [place] [address] PCP - General Family Medicine 05/22/18 Lalit Komal LunaDO [address] [place] [address] Referring Family Medicine 01/10/24 Sue Claudio, machine tech Hosted Services Analyst 02/08/24 02/08/24 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 Start Date End Date Komal Cohn DO [address] [place] [address] PCP - General Family Medicine 05/22/18 Komal Cohn, [address] [place] [address] Referring Family Medicine 01/10/24 Latonya Rosado, machine tech Hosted Services Analyst 02/15/24 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 Start Date End Date Komal Cohn DO [address] [place] [address] PCP - General Family Medicine 05/22/18 LalitKomal MaryanDO rodríguez [address] [place] [address] Referring Family Medicine 01/10/24 Latonya Rosado, machine tech Hosted Services Analyst 02/15/24 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 Start Date End Date Komal Cohn DO [address] [place] [address] PCP - General Family Medicine 05/22/18 Komal Cohn DO [address] [place] [address] Referring Family Medicine 01/10/24 Latonya Rosado, machine tech Hosted Services Analyst 02/15/24 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 Start Date End Date Komal Cohn DO [address] [place] [address] PCP - General Family Medicine 05/22/18 Komal Cohn, [address] [place] [address] Referring Family Medicine 01/10/24 Latonya Rosado, machine tech Hosted Services Analyst 02/15/24 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 Start Date End Date Komal Cohn DO [address] [place] [address] PCP - General 02/05/18 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 Start Date End Date Komal Cohn DO [address] [place] [address] PCP - General Family Medicine 05/22/18 Komal Cohn DO [address] [place] [address] Referring Family Medicine 01/10/24 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 Start Date End Date Komal Cohn DO [address] [place] [address] PCP - General 02/05/18 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 Start Date End Date Komal Cohn DO [address] [place] [address] PCP - General Family Medicine 05/22/18 Komal Cohn DO [address] [place] [address] Referring Family Medicine 01/10/24 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 Start Date End Date Komal Cohn DO [address] [place] [address] PCP - General Family Medicine 05/22/18 Komal Cohn DO [address] [place] [address] Referring Family Medicine 01/10/24 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 Start Date End Date Komal Cohn DO [address] [place] [address] PCP - General Family Medicine 05/22/18 Komal Cohn DO [address] [place] [address] Referring Family Medicine 01/10/24 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 Start Date End Date Komal Cohn DO [address] [place] [address] PCP - General 02/05/18 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 Start Date End Date Komal Cohn DO [address] [place] [address] PCP - General 02/05/18 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 Start Date End Date Komal Cohn DO [address] [place] [address] PCP - General 02/05/18 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 Start Date End Date Komal Cohn DO [address] [place] [address] PCP - General Family Medicine 05/22/18 Komal Cohn [address] [place] [address] Referring Family Medicine 01/10/24 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 Start Date End Date Komal Cohn DO [address] [place] [address] PCP - General 02/05/18 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 Start Date End Date Komal Cohn DO [address] [place] [address] PCP - General 02/05/18 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 Start Date End Date Komal Cohn DO [address] [place], [place] [id number] PCP - General Family Medicine 05/22/18 Komal Cohn DO [address] [place] [address] Referring Family Medicine 01/10/24 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 Start Date End Date Komal Cohn DO [address] [place] [address] PCP - General 02/05/18 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 Start Date End Date Komal Cohn DO [address] [place] [address] PCP - General 02/05/18 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 Start Date End Date Komal Cohn DO [address] [place] [address] PCP - General Family Medicine 05/22/18 Komal Cohn DO [address] [place] [address] Referring Family Medicine 01/10/24 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 Start Date End Date Komal Cohn DO [address] [place] [address] PCP - General 02/05/18 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 Start Date End Date Adin Elias CNP [address] [place] [address] PCP - General Internal Medicine 08/03/24 Komal Cohn DO [address] [place] [address] Referring Family Medicine 01/10/24 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 Start Date End Date Komal Cohn DO [address] [place] [address] PCP - General 02/05/18 Team Status: Active [...] Provider Active S tart: November 26, 2024 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 Start Date End Date Julieth Olmedo DO [address] [place] [address] PCP - General Internal Medicine 01/11/25 Ordered [...] Yolanda Wahl RN) 0916 (Given - Provider: Cahty Tavarez RN) 0842 (Given - Provider: Clinton [...] 1555 (Given - Provider: Damaris Hernandez RN) 0916 (Given - Provider: Kristen Herman, JANES) atenolol [...] Hernandez RN) 0918 (Given - Provider: Kristen Hemran RN) pantoprazole (ProtoNix) EC tablet 40 mg [...] (Dose Auto Held - Provider: Le Dobson SHOVEL ENGINEER [facility]) 2100 (Dose Auto Held - Provider: Le Dobson APRN [facility]) 1711 (Unheld by provider - Provider: [...] chew, or split. 0518 (Given - Provider: Smami Myers RN) 0614 (Given - Provider: Donato [...] Rivera RN) 09 (See Alternative - Provider: Krunal Feng RN)191 (See Alternative - Provider: Krunal [...] Kelly Cunningham RN) 0847 (Given - Provider: Luanne Ospina RN) cyanocobalamin (Vitamin B-12) tablet 100 [...] sedation for opioid reversal - MUST notify high school physical education teacher provider immediately after first dose, may give [...] movement in past 24 hours. sodium chloride ([place]) 0.65 % nasal spray 1 spray 1 [...] section and content) DATE CREATED AUTHOR 12/23/2021 [employer] DATE CREATED AUTHOR AUTHOR'S ORGANIZ ATION 12/[facility] DATE CREATED AUTHOR AUTHOR'S ORGANIZ ATION 11/10/2022 [facility] DATE CREATED AUTHOR AUTHOR'S ORGANIZ ATION 08/05/2024 [facility] DATE CREATED AUTHOR AUTHOR'S ORGANIZ ATION 01/21/2025 [facility] DATE CREATED AUTHOR AUTHOR'S ORGANIZ ATION 01/27/2025 [facility] Goals (unrecognized section and content) Goals may [...] BE BASED ON THE PRIMARY CLINICAL RECORDS. [employer] [facility]. provides no warranty or guarantee of the accuracy or completeness of information in this document.
[2025-02-05 12:02] LABS: AST(SGOT) 44 U/L (<=31); Alanine Aminotransfer ALT/SGPT 30 U/L (<=34); Albumin, Serum 3.0 g/dL (3.4-4.8); Alkaline Phosphatase 165 U/L (35-104); Anion Gap 11 (5-15); BUN 25 mg/dL (4-19); BUN/Creat Ratio 17.4 RATIO (10-20); Calcium,Total 9.2 mg/dL (7.6-11.0); Carbon Dioxide 25.4 mmol/L (21.0-32.0); Chloride 105 mmol/L (98-108); Globulin 3.0 g/dL (2.2-4.2); Glucose 145 mg/dL (70-99); Potassium 3.2 mmol/L (3.3-5.1)
== END ==
LOC: OLS.ACH 04:00
PROVIDERS: Referring Provider Internal Medicine; Visit Provider Internal Medicine
DX: N18.30 Chronic kidney disease, stage 3 unspecified (principal); I50.9 Heart failure, unspecified
CPT/HCPCS: 36415; 80053

== ENCOUNTER → 2025-02-11 05:00 | Outpatient (REF) | payer MEDICARE, MEDICAID, SELFPAY ==
[2025-02-11 08:32] LABS: Potassium 3.6 mmol/L (3.3-5.1)
== END ==
LOC: OLS.ACH 05:00
PROVIDERS: Visit Provider Internal Medicine
DX: E87.6 Hypokalemia (principal)
CPT/HCPCS: 36415; 84132

== ENCOUNTER → 2025-03-12 05:00 | Outpatient (REF) | payer MEDICARE, MEDICAID, SELFPAY ==
[2025-03-12 08:42] LABS: Hematocrit 35.5 % (37-47); Hemoglobin 11.7 g/dL (12.0-15.0); Mean Corp Hgb Conc 33.0 g/dL (32-36); Mean Corpuscular Volume 99.4 fL (81-99); Mean Platelet Vol. 11.9 fl (6.2-12.0); Platelet Count 118 K/mm3 (150-450); RBC Distribution Width CV 13.2 % (11.6-14.6); RBC Distribution Width SD 47.8 fl (35.1-43.9); Red Blood Count 3.57 M/mm3 (4.2-5.4); White Blood Count 5.6 K/mm3 (4.4-11.0)
[2025-03-12 08:52] LABS: Ammonia 41.3 umol/L (11-51)
[2025-03-12 09:00] LABS: AST(SGOT) 46 U/L (<=31); Alanine Aminotransfer ALT/SGPT 31 U/L (<=34); Albumin, Serum 3.3 g/dL (3.4-4.8); Alkaline Phosphatase 169 U/L (35-104); Anion Gap 11 (5-15); BUN 28 mg/dL (4-19); BUN/Creat Ratio 20.3 RATIO (10-20); Calcium,Total 9.8 mg/dL (7.6-11.0); Carbon Dioxide 24.3 mmol/L (21.0-32.0); Chloride 105 mmol/L (98-108); Globulin 3.2 g/dL (2.2-4.2); Glucose 157 mg/dL (70-99); Potassium 3.7 mmol/L (3.3-5.1)
== END ==
LOC: OLS.ACH 05:00
PROVIDERS: Visit Provider Internal Medicine
DX: K74.60 Unspecified cirrhosis of liver (principal); E11.3293 Type 2 diabetes mellitus with mild nonproliferative diabetic retinopathy without macular edema, bilateral; E03.9 Hypothyroidism, unspecified
CPT/HCPCS: 36415; 80053; 82140; 83036; 84443; 85027

== ENCOUNTER → 2025-03-28 05:00 | Outpatient (REF) | payer MEDICARE, MEDICAID, SELFPAY ==
[2025-03-28 09:49] LABS: Hematocrit 34.6 % (37-47); Hemoglobin 11.5 g/dL (12.0-15.0); Immature Granulocytes Count 0.020 X10^3/uL (0.0-0.0); Mean Corp Hgb Conc 33.2 g/dL (32-36); Mean Corpuscular Volume 100.3 fL (81-99); Mean Platelet Vol. 12.2 fl (6.2-12.0); NRBC Flagged by Analyzer 0 % (0-5); Platelet Count 108 K/mm3 (150-450); RBC Distribution Width CV 13.2 % (11.6-14.6); RBC Distribution Width SD 48.6 fl (35.1-43.9); Red Blood Count 3.45 M/mm3 (4.2-5.4); White Blood Count 9.0 K/mm3 (4.4-11.0)
[2025-03-28 10:01] LABS: AST(SGOT) 42 U/L (<=31); Alanine Aminotransfer ALT/SGPT 23 U/L (<=34); Albumin, Serum 3.0 g/dL (3.4-4.8); Alkaline Phosphatase 138 U/L (35-104); Anion Gap 10 (5-15); BUN 29 mg/dL (4-19); BUN/Creat Ratio 18.6 RATIO (10-20); Calcium,Total 9.9 mg/dL (7.6-11.0); Carbon Dioxide 26.6 mmol/L (21.0-32.0); Chloride 104 mmol/L (98-108); Globulin 3.2 g/dL (2.2-4.2); Glucose 157 mg/dL (70-99); Potassium 3.8 mmol/L (3.3-5.1)
== END ==
LOC: OLS.ACH 05:00
PROVIDERS: Visit Provider Internal Medicine
DX: I50.9 Heart failure, unspecified (principal)
CPT/HCPCS: 36415; 80053; 85025

== ENCOUNTER → 2025-04-10 05:00 | Outpatient (REF) | payer MEDICARE, MEDICAID, SELFPAY ==
[2025-04-10 07:41] LABS: Hematocrit 36.7 % (37-47); Hemoglobin 12.4 g/dL (12.0-15.0); Immature Granulocytes Count 0.020 X10^3/uL (0.0-0.0); Mean Corp Hgb Conc 33.8 g/dL (32-36); Mean Corpuscular Volume 97.9 fL (81-99); Mean Platelet Vol. 11.4 fl (6.2-12.0); NRBC Flagged by Analyzer 0 % (0-5); Platelet Count 144 K/mm3 (150-450); RBC Distribution Width CV 12.7 % (11.6-14.6); RBC Distribution Width SD 45.2 fl (35.1-43.9); Red Blood Count 3.75 M/mm3 (4.2-5.4); White Blood Count 6.4 K/mm3 (4.4-11.0)
== END ==
LOC: OLS.ACH 05:00
PROVIDERS: Visit Provider Internal Medicine
DX: I44.1 Atrioventricular block, second degree (principal)
CPT/HCPCS: 36415; 85025

== ENCOUNTER → 2025-04-24 05:00 | Outpatient (REF) | payer MEDICARE, MEDICAID, SELFPAY | LOC: OLS.ACH 05:00 | PROVIDERS: Visit Provider Internal Medicine | DX: E03.9 Hypothyroidism, unspecified (principal) | CPT/HCPCS: 36415; 84443 ==

== ENCOUNTER → 2025-06-03 04:00 | Outpatient (REF) | payer MEDICARE, MEDICAID, SELFPAY ==
--- OUTSIDE RECORDS SUMMARY | 2025-06-03 03:43 | XMS RPT_ITS | CCD ---
Author Organization [facility] Care Team Providers Care Community Support Associate Name Role Phone Komal Cohn Primary Care Provider Komal Cohn DO Primary Care Provid er Komal Cohn DO Unavailable Guido RN, Sue Unavailable Unavailable Latonya Rosado RN Unavailable Unavailable [facility] DO [place] Primary Care Provider Lalit TSE [place] Primary Care Provider Lalit TSE [place] Primary Care Provider Adin Elias CNP Primary Care Provider [phone] KOMAL COHN Attending Joseph COHN [place] Primary Care Joseph COHN [place] Attending Joseph COHN [place] Primary Care Unalien COHN [place] Attending Joseph COHN [place] Primary Care Unalien COHN [place] Primary Care Unavavicenta labanna COHN KOMAL MARYAN Attending Unavavicenta labanna COHN [place] Primary Care Unavavicenta labanna COHN [place] Attending Unavavicenta labanna COHN, [place] MARYAN Primary Care Joseph labanna COHN [place] Attending Joseph Olmedo MD, Julieth Attending Provider Unavailable Shara BRUNNER, Julieth Referring Provider Unavailable Shara BRUNNER, Julieth Attending Provider Unavailable Shara BRUNNER, Julieth Attending Provider Unavailable Sahra BRUNNER, Julieth Referring Provider Unavailable Julieth Olmedo DO Primary Care Provider [facility] Unavailable KERI, ERINN Admitting Unavailable BONYJONI BORDEN Attending Unavailable [facility] Unavailable NIMESH MATTHEW Admitting Unavailable MAGALY, OTFRIED Attending Unavailable WIL PORTILLO Consulting Unavailable STRINGERDANYELL Referring Unavailable [facility] Care Unavailable POOLE, MEET Attending Unavailable DEPERRO, JULIETH Primary Care Unavailable [facility] Care Unavailable DEPERRO, JULIETH Primary Care Unavailable DEPERRO, JULIETH Primary Care Unavailable [facility] Care Unavailable [facility] Unavailable Deperro OLS, Julieth Attending Unavailable Deperro [...] Codeine Drug Allergy 02-24-2016 Hives, Rash, Unknown [facility] (20 sources) Codeine; Translations: [CODEINE] Drug Allergy 02-24-2016 Hives, Rash [facility] Work Phone: (20 sources) Codeine; Translations: [CODEINE SULFATE] Drug Allergy 06-13-[address] [facility] Medications Current Medications Medication Drug Class(es) [...] 7 days. Take 1 capsule by mo uth every 8 hours for 10 days. amoxicillin [...] (Vitamin D3) 200 Unit tablet split tablet (8 sources) cholecalciferol (Vitamin D3) 200 Unit tablet [...] extended release oral tablet (4 sources) Uncompetitive S-mteinw-B-aspartate Receptor Antagonist, Sigma-1 Agonist Start: 07-01-20 End: [...] as needed. Take 3 tablets by mo [facility] once daily. Take 1 tablet by chelo th once daily. Take 20 mg by mouth twice daily. 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 90 tablet 3 03/14/2024 Active Comment on above: Take 20 mg by mouth once daily. silver sulfADIAZINE 10 mg/ml topical cream (9 sources) Sulfonamide Antibacterial Start: 06-04-20 silver sulfADIAZINE (SILVADENE) 1 % cream Apply [...] by mouth daily. 30 tablet 1 02/02/2024 Active sulfamethoxazole 800 mg / trimethoprim 160 [...] trolamine salicylate 100 mg/ ml topical cream (15 sources) Start: 06-01-2024 End: 06-01-2025 trolamine salicylate [...] 81 mg, Oral, DAILY, First dose on 12/13/22 at 1830, Until Discontinued take 1 tablet [...] 1 TABLET BY CHELO TH EVERY DAY benzonatate 100 mg oral capsule (20 sources) Non-narcotic Antitussive Start: 12-19-19 End: 04-27-20 24 benzonatate (TESSALON PERLE) 100 mg capsule 12/22/2021 04/27/2024 Discontinued (Course of therapy completed) Comment on above: TAKE [address] [facility] THREE TIMES A DAY NEEDED FOR [...] IntraVENous, at 50 mL/hr, CONTINUOUS, Starting on 12/13/21 at 1830 Start: 12-13-2021 End: 12-13-2021 lactated [...] 12 HR. Take 1 capsule by [facility] four times daily for 7 days. cholecalciferol [...] 40 mg, SubCUTAneous, DAILY, First dose on Tue12/13/21 at 1830, Until Discontinued Indication of Use: [...] breakfast, First dose on Tue01/29/24 at 0800 Start: 08-23-2023 End: 01-05-2025 take [...] TAKE 1 TABLET BY CHELO EVERY DAY flumazenil 0.1 mg/ml injectable solution [...] less than 70mg/dL, Starting on Tue05/29/24 at 2052, Start infusion following administration of dextrose 50% or glucagon. Start: 01-28-2024 End: 02-02-2024 Start: 01-28-2024 End: 02-02-2024 Start: 12-13-2021 15 g, Oral, MT N, Starting on Tue12/13/21 at 1807, Until [...] 12.5 g, IntraV ENous, PRN, Starting on [place] 12/13/21 at 1807, Until Discontinued, Low blood sugar, [...] raVENous, PRN, Low blood sugar, Starting on [place] 12/13/21 at 1807 Start infusion following administration of [...] Start: 06-26-2024 End: 07-04-2024 Start: 05-30-2024 End: 10-25-2024 5 mg, Oral, Daily, First dos e [...] above: Take 1 tablet by chelo th twice daily as needed (for allergy symptoms). [...] dose on Tue12/14/21 at 0800, Until Discontinued Start: 12-13-2021 take 1000 mg by mout h once daily at dinner 1,000 mg, Oral, DAILY WITH DINNER, First dose on Tue12/13/21 at 1830, Until Discontinued Start: 04-21-2021 End: [...] once daily. Take 1,000 mg by chelo once daily. Take 1 tablet by chelo twice daily with meals. [facility] minocycline 50 mg oral capsule (20 sources) Tetracycline-clas s Drug Start: 1 End: 2 take 1 capsule by mouth once daily in the morning minocycline (MINOCIN, DYNACIN) 50 mg capsule TAKE 1 CAPSULE BY MOUTH EVERY DAY IN THE MORNING 90 capsule 1 08/05/2021 Active Comment on above: TAKE [address] [facility] EVERY DAY IN THE MORNING 24 hr mirabegron 25 mg extended release oral tablet (20 sources) beta3-Adrenergic Agonist Start: 3 End: 5 take 1 tablet by mouth once daily mirabegron (MYRBETRIQ) 25 mg Tb24 Indications: Mixed incontinence Take 1 tablet by mouth once daily. 90 tablet 3 01/06/2024 04/27/2024 Discontinued (Course of therapy completed) Comment on above: [facility] Take 25 mg by mouth once daily. take 1 tablet by chelo every day 1 ml morphine sulfate 4 [...] 06-26-2024 End: 06-26-2024 omega-3 acid ethyl esters (skilled nursing) 1200 mg oral capsule (1 source) End: 08-25-2019 take 1 capsule by mouth once daily [place]-3 Fatty Acids (FISH OIL) 1200 MG CAPS [...] mouth once daily. TAKE [address] [facility] EVERY DAY ondansetron 4 mg disintegrating [...] mouth once 5 mg, Oral, Once, On Gerda 6/2 7/24 at 0115, For 1 dose Start: 02-01-2024 [...] (Definity) injection 1.65 mg polyethylene glycol 3350 [id number] mg powder for oral solution (9 sources) [...] Comment on above: TAKE [address] [facility] EVERY DAY NEEDED WITH LASIX sodium chloride [...] needed 5-40 mL, IntraVENous, PRN, Starting on 12/13/21 [...] chelo twice daily. TAKE 1 TABLET BY CHLEO TWICE A DAY 200 ml vancomycin 5 mg/ml injection (4 sources) Glycopeptide Antibacterial Start: 05-31-2024 End: 05-31-2024 1,000 mg, IntraVENous, at 133.3 mL/hr, Administer over 90 Minutes, Once, On [facility] 05/31/24 at 0830, For 1 dose, Preprocedure, Please send to EP lab premix bag, Suspected Indication (Select all that apply): Surgical Prophylaxis Start: 01-28-2024 End: 01-28-2024 vancomycin (Vancocin) 1,000 mg in sodium chloride 0.9 % 250 mL IVPB (2 sources) Start: 01-29-2024 End: 01-31-2024 1,000 mg, IntraVENous, at 16 6.7 mL/hr, Administer over 90 Minutes, Every 24 hours, First dose on [place] 01/29/24 at 1900, ADD-[place] bag, Suspected Indication (Select all that apply): [...] 800 Units, Oral, DAILY, First dose on 5/8/22 at 1830, Until Discontinued Vitamin E, dl, a cetate, (VITAMIN E) 400 unit capsule Take 800 Units by mouth. Active take 1 capsule by mo uth once daily alpha tocopherol (Vitamin E) 100 units capsule Take 100 Units by mouth daily. 0 Active Vitamin E, dl, a cetate, (VITAMIN E) 400 unit capsule Take 800 Units by mouth. 0 Active take 2 capsules by [facility] once daily vitamin E 400 UNIT capsule Take 800 Units by mouth daily 0 Active Vitamin E, dl, a cetate, (VITAMIN E) 400 unit capsule Take 800 Units by mouth. 0 Active Comment on above: Take 800 Units by mo uth. Zinc (19 sources) End: 05-03-2022 ZINC ORAL [...] 1] Onset: 12-01-2022 Chronic Chronic kidney disease (3 sources) Chronic kidney disease; Translations: [Chronic kidney disease, stage 3b (HCC)] Onset: 12-01-2022 Coagulation and hemorrhagic disorders (20 sources) Platelet count below reference range; Translations: [Thrombocytopenia, unspecified] Onset: 12-26-2022 12-26-2022 Chronic Complication of device; implant or graft (20 sources) Arteriosclerosis of coronary artery bypass graft; Translations: [Atherosclerosis of coronary artery bypass graft(s) without angina pectoris] Onset: 09-30-2022 09-30-2022 Chronic Conduction disorders (7 sources) Second degree atrioventricular block; Translations: [Atrioventricular block, second degree] Onset: 08-30-2024 01-18-2025 Chronic Congestive heart failure; nonhypertensive (20 [...] [Essential (primary) hypertension] Onset: 08-28-2020 08-28-2020 Chronic Fluid and electrolyte disorders (7 sources) Hypokalemia; Translations: [Hypokalemia] Onset: 08-15-2024 Episodic Genitourinary symptoms and ill-defined conditions (3 [...] 03-07-2023 Episodic Other liver diseases (2 sources) Unspecified cirrhosis of liver; Translations: [Unspecified cirrhosis of liver] Onset: 11-08-2024 Chronic Other liver diseases (2 sources) Liver disease, unspecified; Translations: [Liver disease, unspecified] Onset: 10-11-2024 Chronic Other lower respiratory disease (8 sources) [...] Onset: 08-28-2020 08-28-2020 Chronic Residual codes; unclassified (1 source) Other specified [...] failure, unspecified] Onset: 3 Episodic Cardiac dysrhythmias (20 sources) Symptomatic sinus bradycardia; Translations: [Bradycardia, unspecified] Onset: 4 05-31-2024 Episodic Deficiency and other anemia (9 sources) Anemia; Translations: [Anemia, unspecified] Onset: 4 Episodic Gastrointestinal hemorrhage (1 source) Gastrointestinal hemorrhage, [...] 08-28-2020 Episodic Residual codes; unclassified (20 sources) Localized edema; Translations: [Bilateral lower limb edema] Onset: 2 05-03-2022 Episodic Residual codes; unclassified (8 sources) Family [...] Test Name Value Interpretation Reference Range Facility Thyroid Stim Hormone (TSH)on 04-24-2025 TSH 2.060 uIU/mL Normal 0.300-4.200 [facility] Comment on above: Order Comment: 211.1 Performed By: #### L 100.0500, L501.9985, [id number] #### [facility] [place], [address] CBC W/Diff, Automatedon 09-0 3-2024 Absolute Lymph 1.37 X10 3/uL Normal 0.83-4.51 [facility] Comment on above: Order Comment: 211.1 Performed By: #### L 100.0500, L501.9985, [id number] #### [facility] [address] [place], [address] Absolute Neut 3.5 X10 3/uL Normal 2.0-7.7 [facility] Comment on above: Order Comment: 211.1 Performed By: #### L 100.0500, L501.9985, [id number] #### [facility] [address] [place], [address] Basophils/100 WBC (Bld) 0.9 % Normal 0-1 [facility] Comment on above: Order Comment: 211.1 Performed By: #### L 100.0500, L501.9985, [id number] #### [facility] [address] [place], [address] Eosinophils/100 WBC (Bld) 4.7 % Normal 0-5 [facility] Comment on above: Order Comment: 211.1 Performed By: #### L 100.0500, L501.9985, [id number] #### [facility] [address] [place], [address] Erythrocyte distribution width (RBC) [Ratio] 12.7 % Normal 11.6-14.6 [facility] Comment on above: Order Comment: 211.1 Performed By: #### L 100.0500, L501.9985, [id number] #### [facility] [address] [place], [address] Hematocrit (Bld) [Volume fraction] 36.7 % Low 37-47 [facility] Comment on above: Order Comment: 211.1 Performed By: #### L 100.0500, L501.9985, [id number] #### [facility] [address] [place], [address] Hemoglobin (Bld) [Mass/Vol] 12.4 g/dL Normal 12.0-15.0 [facility] Comment on above: Order Comment: 211.1 Performed By: #### L 100.0500, L501.9985, [id number] #### [facility] [address] [place], [address] IG% 0.300 Normal 0.0-0.9 [facility] Comment on above: Order Comment: 211.1 Result Comment: IG% - Immature Granulocytes (promyelocytes, myelocytes and metamyelocytes) > 1% indicates that a LEFT SHIFT is Present. Performed By: #### L 100.0500, L501.9985, [id number] #### [facility] [address] [place], [address] Lymphocytes/100 WBC (Bld) 21.5 % Normal 19-41 [facility] Comment on above: Order Comment: 211.1 Performed By: #### L 100.0500, L501.9985, [id number] #### [facility] [address] [place], [address] MCH (RBC) [Entitic mass] 33.1 pg High 27.0-32.0 [facility] Comment on above: Order Comment: 211.1 Performed By: #### L 100.0500, L501.9985, [id number] #### [facility] [address] [place], [address] MCHC (RBC) [Mass/Vol] 33.8 g/dL Normal 32-36 [facility] Comment on above: Order Comment: 211.1 Performed By: #### L 100.0500, L501.9985, [id number] #### [facility] [address] [place], [address] MCV (RBC) [Entitic vol] 97.9 fL Normal 81-99 [facility] Comment on above: Order Comment: 211.1 Performed By: #### L 100.0500, L501.9985, [id number] #### [facility] [address] [place], [address] Monocytes/100 WBC (Bld) 17.1 % High 0-10 [facility] Comment on above: Order Comment: 211.1 Performed By: #### L 100.0500, L501.9985, [id number] #### [facility] [address] [place], [address] Neutrophils/100 WBC (Bld) 55.5 % Normal 47-70 [facility] Comment on above: Order Comment: 211.1 Performed By: #### L 100.0500, L501.9985, [id number] #### [facility] [address] [place], [address] Nucleated RBC (Bld) [#/Vol] 0 10*3/uL Normal 0-5 [facility] Comment on above: Order Comment: 211.1 Performed By: #### L 100.0500, L501.9985, [id number] #### [facility] [address] [place], [address] Platelet mean volume (Bld) [Entitic vol] 11.4 fL Normal 6.2-12.0 [facility] Comment on above: Order Comment: 211.1 Performed By: #### L 100.0500, L501.9985, [id number] #### [facility] [address] [place], [address] Platelets (Bld) [#/Vol] 144 10*3/uL Low 150-450 [facility] Comment on above: Order Comment: 211.1 Performed By: #### L 100.0500, L501.9985, [id number] #### [facility] [address] [place], [address] RBC (Bld) [#/Vol] 3.75 10*6/uL Low 4.2-5.4 [facility] Comment on above: Order Comment: 211.1 Performed By: #### L 100.0500, [id number], [id number] #### [facility] [address] [place], [address] RDW SD 45.2 fl High 35.1-43.9 [facility] Comment on above: Order Comment: 211.1 Performed By: #### L 100.0500, L501.9985, [id number] #### [facility] [address] [place], [address] WBC (Bld) [#/Vol] 6.4 10*3/uL Normal 4.4-11.0 [facility] Comment on above: Order Comment: 211.1 Performed By: #### L 100.0500, L501.9985, [id number] #### [facility] [address] [place], [address] CBC W/Diff, Automatedon 08-2 Absolute Lymph 1.44 X10 3/uL Normal 0.83-4.51 [facility] Comment on above: Order Comment: 211.1 Performed By: #### L 100.0600, L500.2500 #### [facility] [address] [place], [address] Absolute Neut 5.7 X10 3/uL Normal 2.0-7.7 [facility] Comment on above: Order Comment: 211.1 Performed By: #### L 100.0600, L500.2500 #### [facility] [address] [place], [address] Basophils/100 WBC (Bld) 0.4 % Normal 0-1 [facility] Comment on above: Order Comment: 211.1 Performed By: #### L 100.0600, L500.2500 #### [facility] [address] [place], [address] Eosinophils/100 WBC (Bld) 3.8 % Normal 0-5 [facility] Comment on above: Order Comment: 211.1 Performed By: #### L 100.0600, L500.2500 #### [facility] [address] [place], [address] Erythrocyte distribution width (RBC) [Ratio] 13.2 % Normal 11.6-14.6 [facility] Comment on above: Order Comment: 211.1 Performed By: #### L 100.0600, L500.2500 #### [facility] [address] [place], [address] Hematocrit (Bld) [Volume fraction] 34.6 % Low 37-47 [facility] Comment on above: Order Comment: 211.1 Performed By: #### L 100.0600, L500.2500 #### [facility] [address] [place], [address] Hemoglobin (Bld) [Mass/Vol] 11.5 g/dL Low 12.0-15.0 [facility] Comment on above: Order Comment: 211.1 Performed By: #### L 100.0600, L500.2500 #### [facility] [address] [place], [address] IG% 0.200 Normal 0.0-0.9 [facility] Comment on above: Order Comment: 211.1 Result Comment: IG% - Immature Granulocytes (promyelocytes, myelocytes and metamyelocytes) > 1% indicates that a LEFT SHIFT is Present. Performed By: #### L 100.0600, L500.2500 #### [facility] [address] [place], [address] Lymphocytes/100 WBC (Bld) 16.1 % Low 19-41 [facility] Comment on above: Order Comment: 211.1 Performed By: #### L 100.0600, L500.2500 #### [facility] [address] [place], [address] MCH (RBC) [Entitic mass] 33.3 pg High 27.0-32.0 [facility] Comment on above: Order Comment: 211.1 Performed By: #### L 100.0600, L500.2500 #### [facility] [address] [place], [address] MCHC (RBC) [Mass/Vol] 33.2 g/dL Normal 32-36 [facility] Comment on above: Order Comment: 211.1 Performed By: #### L 100.0600, L500.2500 #### [facility] [address] [place], [address] MCV (RBC) [Entitic vol] 100.3 fL High 81-99 [facility] Comment on above: Order Comment: 211.1 Performed By: #### L 100.0600, L500.2500 #### [facility] [address] [place], [address] Monocytes/100 WBC (Bld) 15.7 % High 0-10 [facility] Comment on above: Order Comment: 211.1 Performed By: #### L 100.0600, L500.2500 #### [facility] [address] [place], [address] Neutrophils/100 WBC (Bld) 63.8 % Normal 47-70 [facility] Comment on above: Order Comment: 211.1 Performed By: #### L 100.0600, L500.2500 #### [facility] [address] [place], [address] Nucleated RBC (Bld) [#/Vol] 0 10*3/uL Normal 0-5 [facility] Comment on above: Order Comment: 211.1 Performed By: #### L 100.0600, L500.2500 #### [facility] [address] [place], [address] Platelet mean volume (Bld) [Entitic vol] 12.2 fL High 6.2-12.0 [facility] Comment on above: Order Comment: 211.1 Performed By: #### L 100.0600, L500.2500 #### [facility] [address] [place], [address] Platelets (Bld) [#/Vol] 108 10*3/uL Low 150-450 [facility] Comment on above: Order Comment: 211.1 Performed By: #### L 100.0600, L500.2500 #### [facility] [address] [place], [address] RBC (Bld) [#/Vol] 3.45 10*6/uL Low 4.2-5.4 [facility] Comment on above: Order Comment: 211.1 Performed By: #### L 100.0600, L500.2500 #### [facility] [address] [place], [address] RDW SD 48.6 fl High 35.1-43.9 [facility] Comment on above: Order Comment: 211.1 Performed By: #### L 100.0600, L500.2500 #### [facility] [address] [place], [address] WBC (Bld) [#/Vol] 9.0 10*3/uL Normal 4.4-11.0 [facility] Comment on above: Order Comment: 211.1 Performed By: #### L 100.0600, L500.2500 #### [facility] [address] [place], [address] Comprehensive Metabolic Prof ilon 08-21-2025 Albumin [Mass/Vol] 3.0 g/dL Low 3.4-4.8 [facility] Comment on above: Order Comment: 211.1 Performed By: #### L 100.0600, L500.2500 #### [facility] [address] [place], [address] Albumin/Globulin [Mass ratio] 0.9 {ratio} Normal 0.9-2.4 [facility] Comment on above: Order Comment: 211.1 Performed By: #### L 100.0600, L500.2500 #### [facility] [address] [place], [address] ALK PHOS 138 U/L High 35-104 [facility] Comment on above: Order Comment: 211.1 Performed By: #### L 100.0600, L500.2500 #### [facility] [address] [place], [address] ALT [Catalytic activity/Vol] 23 U/L Normal <=34 [facility] Comment on above: Order Comment: 211.1 Performed By: #### L 100.0600, L500.2500 #### [facility] [address] [place], [address] AST [Catalytic activity/Vol] 42 U/L High <=31 [facility] Comment on above: Order Comment: 211.1 Performed By: #### L 100.0600, L500.2500 #### [facility] [address] [place], [address] Bilirubin [Mass/Vol] 0.91 mg/dL Normal 0.00-1.30 [facility] Comment on above: Order Comment: 211.1 Performed By: #### L 100.0600, L500.2500 #### [facility] [address] [place], [address] BUN/CRE 18.6 RATIO Normal 10-20 [facility] Comment on above: Order Comment: 211.1 Performed By: #### L 100.0600, L500.2500 #### [facility] [address] [place], [address] Calcium [Mass/Vol] 9.9 mg/dL Normal 7.6-11.0 [facility] Comment on above: Order Comment: 211.1 Performed By: #### L 100.0600, L500.2500 #### [facility] [address] [place], [address] Chloride [Moles/Vol] 104 mmol/L Normal 98-108 [facility] Comment on above: Order Comment: 211.1 Performed By: #### L 100.0600, L500.2500 #### [facility] [address] [place], [address] CO2 [Moles/Vol] 26.6 mmol/L Normal 21.0-32.0 [facility] Comment on above: Order Comment: 211.1 Performed By: #### L 100.0600, L500.2500 #### [facility] [address] [place], [address] Creatinine [Mass/Vol] 1.53 mg/dL High 0.70-1.20 [facility] Comment on above: Order Comment: 211.1 Performed By: #### L 100.0600, L500.2500 #### [facility] [address] [place], [address] GAP 10 Normal 5-15 [facility] Comment on above: Order Comment: 211.1 Performed By: #### L 100.0600, L500.2500 #### [facility] [address] [place], [address] GFR/1.73 sq M.predicted among non-blacks MDRD (S/P/Bld) [Vol rate/Area] 34 mL/min/{1.73_m2} Low >60 [facility] Comment on above: Order Comment: 211.1 Result Comment: mL/m in/1.73m2 CKD-EPI Creatinine Equation (2020) Performed By: #### L 100.0600, L500.2500 #### [facility] [address] [place], [address] Globulin (S) [Mass/Vol] 3.2 g/dL Normal 2.2-4.2 [facility] Comment on above: Order Comment: 211.1 Performed By: #### L 100.0600, L500.2500 #### [facility] [address] [place], [address] Glucose [Mass/Vol] 157 mg/dL High 70-99 [facility] Comment on above: Order Comment: 211. Performed By: #### L 100.0600, L500.2500 #### [facility] [address] [place], [address] Potassium [Moles/Vol] 3.8 mmol/L Normal 3.3-5.1 [facility] Comment on above: Order Comment: 211.1 Performed By: #### L 100.0600, L500.2500 #### [facility] [address] [place], [address] Sodium [Moles/Vol] 140 mmol/L Normal 133-145 [facility] Comment on above: Order Comment: 211.1 Performed By: #### L 100.0600, L500.2500 #### [facility] [address] [place], [address] T PROT 6.1 g/dL Normal 5.9-8.4 [facility] Comment on above: Order Comment: 211.1 Performed By: #### L 100.0600, L500.2500 #### [facility] [address] [place], [address] Urea nitrogen [Mass/Vol] 29 mg/dL High 4-19 [facility] Comment on above: Order Comment: 211.1 Performed By: #### L 100.0600, L500.2500 #### [facility] [address] [place], [address] 36on 03-27-2025 36 I spoke with laboratory secretary. Patient resides at [facility]. PC to [facility] [phone]. I spoke with her nurse Joyce. They are able to draw labs at facility. Will have orders faxed to [phone]. She verbalized understanding. Normal [facility] 36 Patient cancelled OV today with comment that she is sick. PC to patient. Unable to LMOM as VM not accepting messages. Normal [facility] 36on 03-26-2025 36 RBC aware patient has OV tomorrow. Normal [facility] 36 PC to patient. Unable to LMOM as VM is full. Normal [facility] 36on 03-25-2025 36 Remote received for Monitored [place] event. Normal [facility] Ammoniaon 03-12-2025 Ammonia (P) [Moles/Vol] 41.3 umol/L Normal 11- [facility] Comment on above: Order Comment: 211.1 Performed By: #### L 100.0500, L501.9985, L500.4050 #### [facility] [address] [place], [address] CBC-Complete Blood Cnt No Di ffon 03-12-2025 Erythrocyte distribution width (RBC) [Ratio] 13.2 % Normal 11.6-14.6 [facility] Comment on above: Order Comment: 211.1 Performed By: #### L 100.0500, L501.9985, L500.4050 #### [facility] [address] [place], [address] Hematocrit (Bld) [Volume fraction] 35.5 % Low 37-47 [facility] Comment on above: Order Comment: 211.1 Performed By: #### L 100.0500, L501.9985, L500.4050 #### [facility] [address] [place], [address] Hemoglobin (Bld) [Mass/Vol] 11.7 g/dL Low 12.0-15.0 [facility] Comment on above: Order Comment: 211.1 Performed By: #### L 100.0500, L501.9985, L500.4050 #### [facility] [address] [place], [address] MCH (RBC) [Entitic mass] 32.8 pg High 27.0-32.0 [facility] Comment on above: Order Comment: 211.1 Performed By: #### L 100.0500, L501.9985, L500.4050 #### [facility] [address] [place], [address] MCHC (RBC) [Mass/Vol] 33.0 g/dL Normal 32-36 [facility] Comment on above: Order Comment: 211.1 Performed By: #### L 100.0500, L501.9985, L500.4050 #### [facility] [address] [place], [address] MCV (RBC) [Entitic vol] 99.4 fL High 81-99 [facility] Comment on above: Order Comment: 211.1 Performed By: #### L 100.0500, L501.9985, L500.4050 #### [facility] [address] [place], [address] Platelet mean volume (Bld) [Entitic vol] 11.9 fL Normal 6.2-12.0 [facility] Comment on above: Order Comment: 211.1 Performed By: #### L 100.0500, L501.9985, L500.4050 #### [facility] [address] [place], [address] Platelets (Bld) [#/Vol] 118 10*3/uL Low 150-450 [facility] Comment on above: Order Comment: 211.1 Performed By: #### L 100.0500, L501.9985, L500.4050 #### [facility] [address] [place], [address] RBC (Bld) [#/Vol] 3.57 10*6/uL Low 4.2-5.4 [facility] Comment on above: Order Comment: 211.1 Performed By: #### L 100.0500, L501.9985, L500.4050 #### [facility] [address] [place], [address] RDW SD 47.8 fl High 35.1-43.9 [facility] Comment on above: Order Comment: 211.1 Performed By: #### L 100.0500, L501.9985, L500.4050 #### [facility] [address] [place], [address] WBC (Bld) [#/Vol] 5.6 10*3/uL Normal 4.4-11.0 [facility] Comment on above: Order Comment: 211.1 Performed By: #### L 100.0500, L501.9985, L500.4050 #### [facility] [address] [place], [address] Comprehensive Metabolic Prof [facility] 03-12-2025 Albumin [Mass/Vol] 3.3 g/dL Low 3.4-4.8 [facility] Comment on above: Order Comment: 211.1 Performed By: #### L 503.5510 #### [facility] [address] [place], [address] Albumin/Globulin [Mass ratio] 1.0 {ratio} Normal 0.9-2.4 [facility] Comment on above: Order Comment: 211.1 Performed By: #### L 503.5510 #### [facility] [address] [place], [address] ALK PHOS 169 U/L High 35-104 [facility] Comment on above: Order Comment: 211.1 Performed By: #### L 503.5510 #### [facility] [address] [place], [address] ALT [Catalytic activity/Vol] 31 U/L Normal <=34 [facility] Comment on above: Order Comment: 211.1 Performed By: #### L 503.5510 #### [facility] [address] [place], [address] AST [Catalytic activity/Vol] 46 U/L High <=31 [facility] Comment on above: Order Comment: 211.1 Performed By: #### L 503.5510 #### [facility] [address] [place], [address] Bilirubin [Mass/Vol] 0.76 mg/dL Normal 0.00-1.30 [facility] Comment on above: Order Comment: 211.1 Performed By: #### L 503.5510 #### [facility] [address] [place], [address] BUN/CRE 20.3 RATIO High 10-20 [facility] Comment on above: Order Comment: 211.1 Performed By: #### L 503.5510 #### [facility] [address] [place], [address] Calcium [Mass/Vol] 9.8 mg/dL Normal 7.6-11.0 [facility] Comment on above: Order Comment: 211.1 Performed By: #### L 503.5510 #### [facility] [address] [place], [address] Chloride [Moles/Vol] 105 mmol/L Normal 98-108 [facility] Comment on above: Order Comment: 211.1 Performed By: #### L 503.5510 #### [facility] [address] [place], [address] CO2 [Moles/Vol] 24.3 mmol/L Normal 21.0-32.0 [facility] Comment on above: Order Comment: 211.1 Performed By: #### L 503.5510 #### [facility] [address] [place], [address] Creatinine [Mass/Vol] 1.40 mg/dL High 0.70-1.20 [facility] Comment on above: Order Comment: . Performed By: #### L 503.5510 #### [facility] [address] [place], [address] GAP 11 Normal 5-15 [facility] Comment on above: Order Comment: . Performed By: #### L 503.5510 #### [facility] [address] [place], [address] GFR/1.73 sq M.predicted among non-blacks MDRD (S/P/Bld) [Vol rate/Area] 38 mL/min/{1.73_m2} Low >60 [facility] Comment on above: Order Comment: . Result Comment: mL/m in/1.73m2 CKD-EPI Creatinine Equation (2020) Performed By: #### L 503.5510 #### [facility] [address] [place], [address] Globulin (S) [Mass/Vol] 3.2 g/dL Normal 2.2-4.2 [facility] Comment on above: Order Comment: . Performed By: #### L 503.5510 #### [facility] [address] [place], [address] Glucose [Mass/Vol] 157 mg/dL High 70-99 [facility] Comment on above: Order Comment: . Performed By: #### L 503.5510 #### [facility] [address] [place], [address] Potassium [Moles/Vol] 3.7 mmol/L Normal 3.3-5.1 [facility] Comment on above: Order Comment: 211.1 Performed By: #### L 503.5510 #### [facility] [address] [place], [address] Sodium [Moles/Vol] 141 mmol/L Normal 133-145 [facility] Comment on above: Order Comment: 211.1 Performed By: #### L 503.5510 #### [facility] [address] [place], [address] T PROT 6.4 g/dL Normal 5.9-8.4 [facility] Comment on above: Order Comment: 211.1 Performed By: #### L 503.5510 #### [facility] [address] [place], [address] Urea nitrogen [Mass/Vol] 28 mg/dL High 4-19 [facility] Comment on above: Order Comment: 211.1 Performed By: #### L 503.5510 #### [facility] [address] [place], [address] Hemoglobin A1con 03-12-2025 HbA1c (Bld) [Mass fraction] 7.3 % High <=5.6 [facility] Comment on above: Order Comment: ADD A 1C TO [facility] BLOOD WORK 03/12 Result Comment: Norm al < 5.7 % Prediabetic 5.7 - 6.4 % Diabetic >or= 6.5 % Please note range changes. Performed By: #### L 503.5510 #### [facility] [address] [place], [address] Thyroid Stim Hormone (TSH)on 03-12-2025 TSH 4.620 uIU/mL High 0.300-4.200 [facility] Comment on above: Order Comment: KATYA Nj ADD TSH TO [facility] BLOOD WORK 03/12 Performed By: #### L 503.5510 #### [facility] [address] [place], [address] Potassiumon 02-11-2025 Potassium [Moles/Vol] 3.6 mmol/L Normal 3.3-5.1 [facility] Comment on above: Order Comment: 211.1 Performed By: #### L 503.5510 #### [facility] [address] [place], [address] Comprehensive Metabolic Prof ilon 02-05-2025 Albumin [Mass/Vol] 3.0 g/dL Low 3.4-4.8 [facility] Comment on above: Order Comment: 211.1 Performed By: #### L 503.5510 #### [facility] [address] [place], [address] Albumin/Globulin [Mass ratio] 1.0 {ratio} Normal 0.9-2.4 [facility] Comment on above: Order Comment: 211.1 Performed By: #### L 503.5510 #### [facility] [address] [place], [address] ALK PHOS 165 U/L High 35-104 [facility] Comment on above: Order Comment: 211.1 Performed By: #### L 503.5510 #### [facility] [address] [place], [address] ALT [Catalytic activity/Vol] 30 U/L Normal <=34 [facility] Comment on above: Order Comment: 211.1 Performed By: #### L 503.5510 #### [facility] [address] [place], [address] AST [Catalytic activity/Vol] 44 U/L High <=31 [facility] Comment on above: Order Comment: 211.1 Performed By: #### L 503.5510 #### [facility] [address] [place], [address] Bilirubin [Mass/Vol] 0.74 mg/dL Normal 0.00-1.30 [facility] Comment on above: Order Comment: 211.1 Performed By: #### L 503.5510 #### [facility] [address] [place], [address] BUN/CRE 17.4 RATIO Normal 10-20 [facility] Comment on above: Order Comment: 211.1 Performed By: #### L 503.5510 #### [facility] [address] [place], [address] Calcium [Mass/Vol] 9.2 mg/dL Normal 7.6-11.0 [facility] Comment on above: Order Comment: 211.1 Performed By: #### L 503.5510 #### [facility] [address] [place], [address] Chloride [Moles/Vol] 105 mmol/L Normal 98-108 [facility] Comment on above: Order Comment: 211.1 Performed By: #### L 503.5510 #### [facility] [address] [place], [address] CO2 [Moles/Vol] 25.4 mmol/L Normal 21.0-32.0 [facility] Comment on above: Order Comment: 211.1 Performed By: #### L 503.5510 #### [facility] [address] [place], [address] Creatinine [Mass/Vol] 1.44 mg/dL High 0.70-1.20 [facility] Comment on above: Order Comment: 211.1 Performed By: #### L 503.5510 #### [facility] [address] [place], [address] GAP 11 Normal 5-15 [facility] Comment on above: Order Comment: 211.1 Performed By: #### L 503.5510 #### [facility] [address] [place], [address] GFR/1.73 sq M.predicted among non-blacks MDRD (S/P/Bld) [Vol rate/Area] 37 mL/min/{1.73_m2} Low >60 [facility] Comment on above: Order Comment: 211.1 Result Comment: mL/m in/1.73m2 CKD-EPI Creatinine Equation (2020) Performed By: #### L 503.5510 #### [facility] [address] [place], [address] Globulin (S) [Mass/Vol] 3.0 g/dL Normal 2.2-4.2 [facility] Comment on above: Order Comment: 211.1 Performed By: #### L 503.5510 #### [facility] [address] [place], [address] Glucose [Mass/Vol] 145 mg/dL High 70-99 [facility] Comment on above: Order Comment: 211.1 Performed By: #### L 503.5510 #### [facility] [address] [place], [address] Potassium [Moles/Vol] 3.2 mmol/L Low 3.3-5.1 [facility] Comment on above: Order Comment: 211.1 Performed By: #### L 503.5510 #### [facility] [address] [place], [address] Sodium [Moles/Vol] 142 mmol/L Normal 133-145 [facility] Comment on above: Order Comment: 211.1 Performed By: #### L 503.5510 #### [facility] [address] [place], [address] T PROT 6.0 g/dL Normal 5.9-8.4 [facility] Comment on above: Order Comment: 211.1 Performed By: #### L 503.5510 #### [facility] [address] [place], [address] Urea nitrogen [Mass/Vol] 25 mg/dL High 4-19 [facility] Comment on above: Order Comment: 211.1 Performed By: #### L 503.5510 #### [facility] [address] [place], [address] Progress Noteon 01-11-2025 Progress Note Normal [facility] Basic Metabolic Profile (BMP )on 01-10-2025 BUN/CRE 18.5 RATIO Normal 10-20 [facility] Comment on above: Order Comment: 211.1 Performed By: #### L 100.0500, L501.9985, L500.4050 #### [facility] [address] [place], [address] Calcium [Mass/Vol] 9.0 mg/dL Normal 7.6-11.0 [facility] Comment on above: Order Comment: 211.1 Performed By: #### L 100.0500, L501.9985, L500.4050 #### [facility] [address] [place], [address] Chloride [Moles/Vol] 104 mmol/L Normal 98-108 [facility] Comment on above: Order Comment: 211.1 Performed By: #### L 100.0500, L501.9985, L500.4050 #### [facility] [address] [place], [address] CO2 [Moles/Vol] 25.7 mmol/L Normal 21.0-32.0 [facility] Comment on above: Order Comment: 211.1 Performed By: #### L 100.0500, L501.9985, L500.4050 #### [facility] [address] [place], [address] Creatinine [Mass/Vol] 1.31 mg/dL High 0.70-1.20 [facility] Comment on above: Order Comment: 211.1 Performed By: #### L 100.0500, L501.9985, L500.4050 #### [facility] [address] [place], [address] GAP 10 Normal 5-15 [facility] Comment on above: Order Comment: 211.1 Performed By: #### L 100.0500, L501.9985, L500.4050 #### [facility] [address] [place], [address] GFR/1.73 sq M.predicted among non-blacks MDRD (S/P/Bld) [Vol rate/Area] 41 mL/min/{1.73_m2} Low >60 [facility] Comment on above: Order Comment: .1 Result Comment: mL/m in/1.73m2 CKD-EPI Creatinine Equation (2020) Performed By: #### L 100.0500, L501.9985, L500.4050 #### [facility] [address] [place], [address] Glucose [Mass/Vol] 134 mg/dL High 70-99 [facility] Comment on above: Order Comment: 211.1 Performed By: #### L 100.0500, L501.9985, L500.4050 #### [facility] [address] [place], [address] Potassium [Moles/Vol] 3.5 mmol/L Normal 3.3-5.1 [facility] Comment on above: Order Comment: 211.1 Performed By: #### L 100.0500, L501.9985, L500.4050 #### [facility] [address] [place], [address] Sodium [Moles/Vol] 140 mmol/L Normal 133-145 [facility] Comment on above: Order Comment: 211.1 Performed By: #### L 100.0500, L501.9985, L500.4050 #### [facility] [address] [place], [address] Urea nitrogen [Mass/Vol] 24 mg/dL High 4-19 [facility] Comment on above: Order Comment: 211.1 Performed By: #### L 100.0500, L501.9985, L500.4050 #### [facility] [address] [place], [address] CBC-Complete Blood Cnt No Di ffon 01-10-2025 Erythrocyte distribution width (RBC) [Ratio] 13.4 % Normal 11.6-14.6 [facility] Comment on above: Order Comment: 211.1 Performed By: #### L 100.0500, L501.9985, L500.4050 #### [facility] [address] [place], [address] Hematocrit (Bld) [Volume fraction] 34.1 % Low 37-47 [facility] Comment on above: Order Comment: 211.1 Performed By: #### L 100.0500, L501.9985, L500.4050 #### [facility] [address] [place], [address] Hemoglobin (Bld) [Mass/Vol] 11.3 g/dL Low 12.0-15.0 [facility] Comment on above: Order Comment: 211.1 Performed By: #### L 100.0500, L501.9985, L500.4050 #### [facility] [address] [place], [address] MCH (RBC) [Entitic mass] 32.8 pg High 27.0-32.0 [facility] Comment on above: Order Comment: 211.1 Performed By: #### L 100.0500, L501.9985, L500.4050 #### [facility] [address] [place], [address] MCHC (RBC) [Mass/Vol] 33.1 g/dL Normal 32-36 [facility] Comment on above: Order Comment: 211.1 Performed By: #### L 100.0500, L501.9985, L500.4050 #### [facility] [address] [place], [address] MCV (RBC) [Entitic vol] 98.8 fL Normal 81-99 [facility] Comment on above: Order Comment: 211.1 Performed By: #### L 100.0500, L501.9985, L500.4050 #### [facility] [address] [place], [address] Platelet mean volume (Bld) [Entitic vol] 11.6 fL Normal 6.2-12.0 [facility] Comment on above: Order Comment: 211.1 Performed By: #### L 100.0500, L501.9985, L500.4050 #### [facility] [address] [place], [address] Platelets (Bld) [#/Vol] 125 10*3/uL Low 150-450 [facility] Comment on above: Order Comment: 211.1 Performed By: #### L 100.0500, L501.9985, L500.4050 #### [facility] [address] [place], [address] RBC (Bld) [#/Vol] 3.45 10*6/uL Low 4.2-5.4 [facility] Comment on above: Order Comment: 211.1 Performed By: #### L 100.0500, L501.9985, L500.4050 #### [facility] [address] [place], [address] RDW SD 47.8 fl High 35.1-43.9 [facility] Comment on above: Order Comment: 211.1 Performed By: #### L 100.0500, L501.9985, L500.4050 #### [facility] [address] [place], [address] WBC (Bld) [#/Vol] 7.4 10*3/uL Normal 4.4-11.0 [facility] Comment on above: Order Comment: . Performed By: #### L 100.0500, L501.9985, L500.4050 #### [facility] [address] [place], [address] Hemoglobin A1con 12-25-2024 HbA1c (Bld) [Mass fraction] 7.0 % High <=5.6 [facility] Comment on above: Order Comment: . Result Comment: Norm al < 5.7 % Prediabetic 5.7 - 6.4 % Diabetic >or= 6.5 % Please note range changes. Performed By: #### L 100.0500, L501.9985, L500.4050 #### [facility] [address] [place], [address] CBC-Complete Blood Cnt No Di ffon 11-26-2024 Erythrocyte distribution width (RBC) [Ratio] 13.9 % Normal 11.6-14.6 [facility] Comment on above: Order Comment: . Performed By: #### L 100.0500, L501.9985, L500.4050 #### [facility] [address] [place], [address] Hematocrit (Bld) [Volume fraction] 32.2 % Low 37-47 [facility] Comment on above: Order Comment: . Performed By: #### L 100.0500, L501.9985, [id number] #### [facility] [address] [place], [address] Hemoglobin (Bld) [Mass/Vol] 10.5 g/dL Low 12.0-15.0 [facility] Comment on above: Order Comment: . Performed By: #### L 100.0500, L501.9985, [id number] #### [facility] [address] [place], [address] MCH (RBC) [Entitic mass] 32.0 pg Normal 27.0-32.0 [facility] Comment on above: Order Comment: 211.1 Performed By: #### L 100.0500, L501.9985, [id number] #### [facility] [address] [place], [address] MCHC (RBC) [Mass/Vol] 32.6 g/dL Normal 32-36 [facility] Comment on above: Order Comment: 211.1 Performed By: #### L 100.0500, L501.9985, [id number] #### [facility] [address] [place], [address] MCV (RBC) [Entitic vol] 98.2 fL Normal 81-99 [facility] Comment on above: Order Comment: 211.1 Performed By: #### L 100.0500, L501.9985, [id number] #### [facility] [address] [place], [address] Platelet mean volume (Bld) [Entitic vol] 10.6 fL Normal 6.2-12.0 [facility] Comment on above: Order Comment: 211.1 Performed By: #### L 100.0500, L501.9985, [id number] #### [facility] [address] [place], [address] Platelets (Bld) [#/Vol] 142 10*3/uL Low 150-450 [facility] Comment on above: Order Comment: 211.1 Performed By: #### L 100.0500, L501.9985, [id number] #### [facility] [address] [place], [address] RBC (Bld) [#/Vol] 3.28 10*6/uL Low 4.2-5.4 [facility] Comment on above: Order Comment: 211.1 Performed By: #### L 100.0500, L501.9985, [id number] #### [facility] [address] [place], [address] RDW SD 49.7 fl High 35.1-43.9 [facility] Comment on above: Order Comment: 211.1 Performed By: #### L 100.0500, L501.9985, [id number] #### [facility] [address] [place], [address] WBC (Bld) [#/Vol] 9.6 10*3/uL Normal 4.4-11.0 [facility] Comment on above: Order Comment: 211.1 Performed By: #### L 100.0500, L501.9985, L500.4050 #### [facility] [address] [place], [address] Erythrocyte distribution wid th (RBC) [Ratio]Ordered By: Julieth Olmedo on 11-26-2024 Erythrocyte distribution width (RBC) [Entitic vol] 49.7 fL High 35.1-43.9 [facility] Erythrocyte distribution wid th ratioOrdered By: Julieth Olmedo on 11-26-2024 Erythrocyte distribution width (RBC) [Ratio] 13.9 % 11.6-14.6 [facility] Hematocrit Auto (Bld) [Volum e fraction]Ordered By: Julieth Olmedo on 11-26-2024 Hematocrit (Bld) [Volume fraction] 32.2 % Low 37-47 [facility] Hemoglobin measurementOrdere d By: Julieth Olmedo on 11-26-2024 Hemoglobin (Bld) [Mass/Vol] 10.5 g/dL Low 12.0-15.0 [facility] Influenza virus A and B and SARS-CoV-2 (COVID-19) and Respiratory syncytial virus RNAOrdered By: Julieth Olmedo on 04-21-2025 SARS-CoV-2 (COVID-19) RNA HUGO+probe Ql (Unsp spec) [facility] M100.678on 11-26-2024 M100.678 Pending SARS-CoV-2 (COVID 19) Negative INFLUENZA A Negative INFLUENZA B Negative RSV PCR Negative Normal [facility] Comment on above: Performed By: #### L 100.0500, L501.9985, L500.4050 #### [facility] [address] [place], [address] MCV (mean corpuscular volume ) determinationOrdered By: Julieth Olmedo on 11-26-2024 MCV (RBC) [Entitic vol] 98.2 fL 81-99 [facility] Mean corpuscular hemoglobin (MCH) determinationOrdered By: Julieth Olmedo on 11-26-2024 MCH (RBC) [Entitic mass] 32.0 pg 27.0-32.0 [facility] Mean corpuscular hemoglobin concentration (MCHC) determinationOrdered By: Julieth Olmedo on 11-26-2024 MCHC (RBC) [Mass/Vol] 32.6 g/dL 32-36 [facility] Mean platelet volume determi nationOrdered By: Julieth Olmedo on 11-26-2024 Platelet mean volume (Bld) [Entitic vol] 10.6 fL 6.2-12.0 [facility] Platelet countOrdered By: Chen on 11-26-2024 Platelets (Bld) [#/Vol] 142 10*3/uL Low 150-450 [facility] RBC Auto (Bld) [#/Vol]Ordere d By: Julieth Olmedo on 11-26-2024 RBC (Bld) [#/Vol] 3.28 10*6/uL Low 4.2-5.4 [facility] White blood cell (WBC) count Ordered By: Julieth Olmedo on 11-26-2024 WBC (Bld) [#/Vol] 9.6 10*3/uL 4.4-11.0 [facility] Ammoniaon 11-12-2024 Ammonia (P) [Moles/Vol] 38.0 umol/L Normal 11-51 [facility] Comment on above: Order Comment: 211.1 Performed By: #### L 100.0500, L501.9985, L500.4050 #### [facility] [address] [place], [address] Venous blood ammonia measure mentOrdered By: Julieth Olmedo on 11-12-2024 Ammonia (P) [Moles/Vol] 38.0 umol/L [facility] Anion gap in Serum or Plasma Ordered By: Julieth Olmedo on 11-02-2024 Anion gap [Moles/Vol] 11 mmol/L 12-20 [facility] BUN/creatinine ratioOrdered By: Julieth Olmedo on 11-02-2024 Urea nitrogen/Creatinine [Mass ratio] 14.1 mg/mg 05-27 [facility] Basic Metabolic Profile (BMP )on 11-02-2024 BUN/CRE 14.1 RATIO Normal 05-27 [facility] Comment on above: Order Comment: 211.1 Performed By: #### L 100.0500, L501.9985, L500.4050 #### [facility] [address] [place], [address] Calcium [Mass/Vol] 9.4 mg/dL Normal 7.6-11.0 [facility] Comment on above: Order Comment: 211.1 Performed By: #### L 100.0500, L501.9985, L500.4050 #### [facility] [address] [place], [address] Chloride [Moles/Vol] 103 mmol/L Normal 98-108 [facility] Comment on above: Order Comment: 211.1 Performed By: #### L 100.0500, L501.9985, L500.4050 #### [facility] [address] [place], [address] CO2 [Moles/Vol] 25.6 mmol/L Normal 21.0-32.0 [facility] Comment on above: Order Comment: 211.1 Performed By: #### L 100.0500, L501.9985, L500.4050 #### [facility] [address] [place], [address] Creatinine [Mass/Vol] 1.52 mg/dL High 0.70-1.20 [facility] Comment on above: Order Comment: .1 Performed By: #### L 100.0500, L501.9985, L500.4050 #### [facility] [address] [place], [address] GAP 11 Normal 5-15 [facility] Comment on above: Order Comment: . Performed By: #### L 100.0500, L501.9985, L500.4050 #### [facility] [address] [place], [address] GFR/1.73 sq M.predicted among non-blacks MDRD (S/P/Bld) [Vol rate/Area] 35 mL/min/{1.73_m2} Low >60 [facility] Comment on above: Order Comment: . Result Comment: mL/m in/1.73m2 CKD-EPI Creatinine Equation (2020) Performed By: #### L 100.0500, L501.9985, L500.4050 #### [facility] [address] [place], [address] Glucose [Mass/Vol] 136 mg/dL High 70-99 [facility] Comment on above: Order Comment: 211.1 Performed By: #### L 100.0500, L501.9985, L500.4050 #### [facility] [address] [place], [address] Potassium [Moles/Vol] 3.8 mmol/L Normal 3.3-5.1 [facility] Comment on above: Order Comment: .1 Performed By: #### L 100.0500, L501.9985, L500.4050 #### [facility] [address] [place], [address] Sodium [Moles/Vol] 139 mmol/L Normal 133-145 [facility] Comment on above: Order Comment: 211.1 Performed By: #### L 100.0500, L501.9985, L500.4050 #### [facility] [address] [place], [address] Urea nitrogen [Mass/Vol] 22 mg/dL High 4-19 [facility] Comment on above: Order Comment: 211.1 Performed By: #### L 100.0500, L501.9985, L500.4050 #### [facility] [address] [place], [address] Carbon dioxide, total [Moles /volume] in Central venous bloodOrdered By: Julieth Olmedo on 11-02-2024 CO2 [Moles/Vol] 25.6 mmol/L 21.0-32.0 [facility] Chloride assayOrdered By: Chen on 11-02-2024 Chloride [Moles/Vol] 103 mmol/L 98-108 [facility] GFR/1.73 sq M.predicted zakia g non-blacks MDRD (S/P/Bld) [Vol rate/Area]Ordered By: Julieth Olmedo on 11-02-2024 Estimated GFR (MDRD) Non-Af Amer 35 Low >60 [facility] Comment on above: mL/min/1.73m2 CKD-EP I Creatinine Equation (2020) Potassium (Unsp spec) [Mass/ Vol]Ordered By: Julieth Olmedo on 11-02-2024 Potassium [Moles/Vol] 3.8 mmol/L 3.3-5.1 [facility] Serum creatinine measurement (mass/volume)Ordered By: Julieth Olmedo on 11-02-2024 Creatinine [Mass/Vol] 1.52 mg/dL High 0.70-1.20 [facility] Serum glucose measurement (m ass/volume)Ordered By: Julieth Olmedo on 11-02-2024 Glucose [Mass/Vol] 136 mg/dL High 70-99 [facility] Serum or plasma calcium kirstin urement (mass/volume)Ordered By: Julieth Olmedo on 11-02-2024 Calcium [Mass/Vol] 9.4 mg/dL 7.6-11.0 [facility] Serum or plasma urea nitroge n measurement (mass/volume)Ordered By: Julieth Olmedo on 11-02-2024 Urea nitrogen [Mass/Vol] 22 mg/dL High 4-19 [facility] Sodium levelOrdered By: Julieth Olmedo on 11-02-2024 Sodium [Moles/Vol] 139 mmol/L 133-145 [facility] Anion gap in Serum or Plasma Ordered By: Julieth Olmedo on 10-26-2024 Anion gap [Moles/Vol] 10 mmol/L 5-15 [facility] BUN/creatinine ratioOrdered By: Julieth Olmedo on 10-26-2024 Urea nitrogen/Creatinine [Mass ratio] 17.4 mg/mg 10- [facility] Basic Metabolic Profile (BMP )on 10-26-2024 BUN/CRE 17.4 RATIO Normal - [facility] Comment on above: Order Comment: Performed By: #### L 503.5510 #### [facility] [address] [place], [address] Calcium [Mass/Vol] 9.1 mg/dL Normal 7.6-11.0 [facility] Comment on above: Order Comment: Performed By: #### L 503.5510 #### [facility] [address] [place], [address] Chloride [Moles/Vol] 103 mmol/L Normal 98-108 [facility] Comment on above: Order Comment: Performed By: #### L 503.5510 #### [facility] [address] [place], [address] CO2 [Moles/Vol] 26.5 mmol/L Normal 21.0-32.0 [facility] Comment on above: Order Comment: Performed By: #### L 503.5510 #### [facility] [address] [place], [address] Creatinine [Mass/Vol] 1.39 mg/dL High 0.70-1.20 [facility] Comment on above: Order Comment: Performed By: #### L 503.5510 #### [facility] [address] [place], [address] GAP 10 Normal 5-15 [facility] Comment on above: Order Comment: Performed By: #### L 503.5510 #### [facility] [address] [place], [address] GFR/1.73 sq M.predicted among non-blacks MDRD (S/P/Bld) [Vol rate/Area] 39 mL/min/{1.73_m2} Low >60 [facility] Comment on above: Order Comment: Result Comment: mL/m in/1.73m2 CKD-EPI Creatinine Equation (2020) Performed By: #### L 503.5510 #### [facility] [address] [place], [address] Glucose [Mass/Vol] 152 mg/dL High 70-99 [facility] Comment on above: Order Comment: Performed By: #### L 503.5510 #### [facility] [address] [place], [address] Potassium [Moles/Vol] 3.5 mmol/L Normal 3.3-5.1 [facility] Comment on above: Order Comment: Performed By: #### L 503.5510 #### [facility] [address] [place], [address] Sodium [Moles/Vol] 139 mmol/L Normal 133-145 [facility] Comment on above: Order Comment: Performed By: #### L 503.5510 #### [facility] [address] [place], [place], [address] Urea nitrogen [Mass/Vol] 24 mg/dL High 4-19 [facility] Comment on above: Order Comment: Performed By: #### L 503.5510 #### [facility] [address] [place], [place], [address] Carbon dioxide, total [Moles /volume] in Central venous bloodOrdered By: Julieth Olmedo on 10-26-2024 CO2 [Moles/Vol] 26.5 mmol/L 21.0-32.0 [facility] Chloride assayOrdered By: Chen on 10-26-2024 Chloride [Moles/Vol] 103 mmol/L 98-108 [facility] GFR/1.73 sq M.predicted zakia g non-blacks MDRD (S/P/Bld) [Vol rate/Area]Ordered By: Julieth Olmedo on 10-26-2024 Estimated GFR (MDRD) Non-Af Amer 39 Low >60 [facility] Comment on above: mL/min/1.73m2 CKD-EP I Creatinine Equation (2020) Potassium (Unsp spec) [Mass/ Vol]Ordered By: Julieth Olmedo on 10-26-2024 Potassium [Moles/Vol] 3.5 mmol/L 3.3-5.1 [facility] Serum creatinine measurement (mass/volume)Ordered By: Julieth Olmedo on 10-26-2024 Creatinine [Mass/Vol] 1.39 mg/dL High 0.70-1.20 [facility] Serum glucose measurement (m ass/volume)Ordered By: Julieth Olmedo on 10-26-2024 Glucose [Mass/Vol] 152 mg/dL High 70-99 [facility] Serum or plasma calcium kirstin urement (mass/volume)Ordered By: Julieth Olmedo on 10-26-2024 Calcium [Mass/Vol] 9.1 mg/dL 7.6-11.0 [facility] Serum or plasma urea nitroge n measurement (mass/volume)Ordered By: Julieth Olmedo on 10-26-2024 Urea nitrogen [Mass/Vol] 24 mg/dL High 4- [facility] Sodium levelOrdered By: Julieth Olmedo on 10-26-2024 Sodium [Moles/Vol] 139 mmol/L 133-145 [facility] Ammoniaon 10-15-2024 Ammonia (P) [Moles/Vol] 46.6 umol/L Normal [facility] Comment on above: Order Comment: 211.1 Performed By: #### L 100.0500, L501.9985, L500.4050 #### [facility] [address] [place], [place], [id number] Venous blood ammonia measure mentOrdered By: Julieth Olmedo on 10-15-2024 Ammonia (P) [Moles/Vol] 46.6 umol/L [facility] Ammoniaon 10-05-2024 Ammonia (P) [Moles/Vol] 62.1 umol/L High [address] [place] [address] Comment on above: Order Comment: 211.1 Performed By: #### L 503.5510 #### [facility] [address] [place], [place], [address] Venous blood ammonia measure mentOrdered By: Julieth Olmedo on 10-05-2024 Ammonia (P) [Moles/Vol] 62.1 umol/L [facility] [address] [place] [address] on 10-02-2024 36 PC to [facility], I spoke with Diego MARRERO Reviewed verbal order. [facility] send [facility] as well. She verbalized understanding. [facility] 36on 10-01-2024 36 CalledDiego RN was alittle concerned BP past week, she has not been on RX since PM inserted 09/23 -168/70 09/24 -144/68 2-158/64 09/26-143/66 2--136/68 09/29-148-72 2-146/70 HR 70-80 no HF SX , wt stable,no complaints, will inform Dianelys [facility] 36 Rajwinder MARRERO from [facility] requesting return call to clarify medications and BP [phone]. May ask for nurse Normal [facility] Albumin to globulin ratioOrd ered By: Julieth Olmedo on 09-25-2024 Albumin/Globulin [Mass ratio] 0.6 {ratio} Low 0.9-2.4 [facility] Ammoniaon 09-25-2024 Ammonia (P) [Moles/Vol] 48.0 umol/L High 11-32 [facility] Comment on above: Order Comment: 211.1 Performed By: #### L 100.0500, L501.9985, L500.4050 #### [facility] [address] [place], [address] Bilirubin, totalOrdered By: Julieth Olmedo on 09-25-2024 Bilirubin [Mass/Vol] 0.80 mg/dL 0.20-1.00 [facility] Comment on above: For patients on eltr ombopag therapy, use of Dimension [place] TBIL is not recommended. Blood urea nitrogen (BUN)/cr eatinine ratioOrdered By: Julieth Olmedo on 09-25-2024 Urea nitrogen/Creatinine [Mass ratio] 14.6 mg/mg 10-20 [facility] CBC-Complete Blood Cnt No Di ffon 09-25-2024 Erythrocyte distribution width (RBC) [Ratio] 14.3 % Normal 11.6-14.6 [facility] Comment on above: Order Comment: 211.1 Performed By: #### L 100.0500, L501.9985, L500.4050 #### [facility] [address] [place], [address] Hematocrit (Bld) [Volume fraction] 32.7 % Low 37-47 [facility] Comment on above: Order Comment: 211.1 Performed By: #### L 100.0500, L501.9985, L500.4050 #### [facility] [address] [place], [address] Hemoglobin (Bld) [Mass/Vol] 10.5 g/dL Low 12.0-15.0 [facility] Comment on above: Order Comment: 211.1 Performed By: #### L 100.0500, L501.9985, L500.4050 #### [facility] [address] [place], [address] MCH (RBC) [Entitic mass] 31.5 pg Normal 27.0-32.0 [facility] Comment on above: Order Comment: 211.1 Performed By: #### L 100.0500, L501.9985, L500.4050 #### [facility] [address] [place], [address] MCHC (RBC) [Mass/Vol] 32.1 g/dL Normal 32-36 [facility] Comment on above: Order Comment: 211.1 Performed By: #### L 100.0500, L501.9985, L500.4050 #### [facility] [address] [place], [address] MCV (RBC) [Entitic vol] 98.2 fL Normal 81-99 [facility] Comment on above: Order Comment: 211.1 Performed By: #### L 100.0500, L501.9985, L500.4050 #### [facility] [address] [place], [address] Platelet mean volume (Bld) [Entitic vol] 11.1 fL Normal 6.2-12.0 [facility] Comment on above: Order Comment: 211.1 Performed By: #### L 100.0500, L501.9985, L500.4050 #### [facility] [address] [place], [address] Platelets (Bld) [#/Vol] 114 10*3/uL Low 150-450 [facility] Comment on above: Order Comment: 211.1 Performed By: #### L 100.0500, L501.9985, L500.4050 #### [facility] [address] [place], [address] RBC (Bld) [#/Vol] 3.33 10*6/uL Low 4.2-5.4 [facility] Comment on above: Order Comment: .1 Performed By: #### L 100.0500, L501.9985, L500.4050 #### [facility] [address] [place], [address] RDW SD 51.7 fl High 35.1-43.9 [facility] Comment on above: Order Comment: . Performed By: #### L 100.0500, L501.9985, L500.4050 #### [facility] [address] [place], [address] WBC (Bld) [#/Vol] 7.0 10*3/uL Normal 4.4-11.0 [facility] Comment on above: Order Comment: . Performed By: #### L 100.0500, L501.9985, L500.4050 #### [facility] [address] [place], [address] Carbon dioxide measurementOr dered By: Julieth Olmedo on 09-25-2024 CO2 [Moles/Vol] 26.0 mmol/L 21.0-32.0 [facility] Chloride measurementOrdered By: Julieth Olmedo on 09-25-2024 Chloride [Moles/Vol] 107 mmol/L 98-107 [facility] Comprehensive Metabolic Prof ilon 09-25-2024 Albumin [Mass/Vol] 2.5 g/dL Low 3.2-5.0 [facility] Comment on above: Order Comment: . Performed By: #### L 100.0500, L501.9985, L500.4050 #### [facility] [address] [place], [address] Albumin/Globulin [Mass ratio] 0.6 {ratio} Low 0.9-2.4 [facility] Comment on above: Order Comment: 211.1 Performed By: #### L 100.0500, L501.9985, L500.4050 #### [facility] [address] [place], [address] ALK P 152 U/L High 45-117 [facility] Comment on above: Order Comment: 211.1 Performed By: #### L 100.0500, L501.9985, L500.4050 #### [facility] [address] [place], [address] ALT [Catalytic activity/Vol] 27 U/L Normal 13-56 [facility] Comment on above: Order Comment: 211.1 Performed By: #### L 100.0500, L501.9985, L500.4050 #### [facility] [address] [place], [address] AST [Catalytic activity/Vol] 44 U/L High 15-37 [facility] Comment on above: Order Comment: 211.1 Performed By: #### L 100.0500, L501.9985, L500.4050 #### [facility] [address] [place], [address] Bilirubin [Mass/Vol] 0.80 mg/dL Normal 0.20-1.00 [facility] Comment on above: Order Comment: 211.1 Result Comment: For patients on eltrombopag therapy, use of Dimension [place] TBIL is not recommended. Performed By: #### L 100.0500, L501.9985, L500.4050 #### [facility] [address] [place], [address] BUN/CRE 14.6 RATIO Normal 10-20 [facility] Comment on above: Order Comment: 211.1 Performed By: #### L 100.0500, L501.9985, L500.4050 #### [facility] [address] [place], [address] CA,Total 9.0 mg/dL Normal 8.5-10.1 [facility] Comment on above: Order Comment: 211.1 Performed By: #### L 100.0500, L501.9985, L500.4050 #### [facility] [address] [place], [address] Chloride [Moles/Vol] 107 mmol/L Normal 98-107 [facility] Comment on above: Order Comment: .1 Performed By: #### L 100.0500, L501.9985, L500.4050 #### [facility] [address] [place], [address] CO2 [Moles/Vol] 26.0 mmol/L Normal 21.0-32.0 [facility] Comment on above: Order Comment: .1 Performed By: #### L 100.0500, L501.9985, L500.4050 #### [facility] [address] [place], [address] Creatinine [Mass/Vol] 1.23 mg/dL High 0.55-1.02 [facility] Comment on above: Order Comment: 211.1 Result Comment: The validity of the calculated GFR GFRAA in patients over 70 years has not been determined. Clinical correlation is essential. Performed By: #### L 100.0500, L501.9985, L500.4050 #### [facility] [facility] [address] [place], [address] EST GFR - AA 54 mL/min Low >60 [facility] Comment on above: Order Comment: 211.1 Result Comment: Afri can Jamaican GFR Calc Performed By: #### L 100.0500, L501.9985, L500.4050 #### [facility] [address] [place], [address] GAP 8 Normal 5-15 [facility] Comment on above: Order Comment: 211.1 Performed By: #### L 100.0500, L501.9985, [id number] #### [facility] [address] [place], [address] GFR/1.73 sq M.predicted among non-blacks MDRD (S/P/Bld) [Vol rate/Area] 45 mL/min/{1.73_m2} Low >60 [facility] Comment on above: Order Comment: . Result Comment: Non- GFR Calc Performed By: #### L 100.0500, L501.9985, L500.4050 #### [facility] [address] [place], [address] Globulin (S) [Mass/Vol] 4.0 g/dL [facility] 2[facility]4.2 [facility] Comment on above: Order Comment: . Performed By: #### L 100.0500, L501.9985, L500.4050 #### [facility] [address] [place], [address] Glucose [Mass/Vol] 127 mg/dL High 74-106 [facility] Comment on above: Order Comment: . Result Comment: Fast ing Glucose result greater than or equal to 126 mg/dL suggests DIABETES MELLITUS per A.D.A. criteria. Performed By: #### L 100.0500, L501.9985, L500.4050 #### [facility] [address] [place], [address] Potassium [Moles/Vol] 3.5 mmol/L Normal 3.5-5.1 [facility] Comment on above: Order Comment: . Performed By: #### L 100.0500, L501.9985, [id number] #### [facility] [address] [place], [address] Sodium [Moles/Vol] 141 mmol/L Normal 136-145 [facility] Comment on above: Order Comment: 211.1 Performed By: #### L 100.0500, L501.9985, [id number] #### [facility] [address] [place], [address] T PROT 6.5 g/dL Normal 6.4-8.2 [facility] Comment on above: Order Comment: 211.1 Performed By: #### L 100.0500, L501.9985, [id number] #### [facility] [address] [place], [address] Urea nitrogen [Mass/Vol] 18 mg/dL Normal 7-18 [facility] Comment on above: Order Comment: 211.1 Performed By: #### L 100.0500, L501.9985, [id number] #### [facility] [address] [place], [address] Erythrocyte distribution wid th (RBC) [Ratio]Ordered By: Julieth Olmedo on 09-25-2024 Erythrocyte distribution width (RBC) [Entitic vol] 51.7 fL High 35.1-43.9 [facility] Erythrocyte distribution wid th ratioOrdered By: Julieth Olmedo on 09-25-2024 Erythrocyte distribution width (RBC) [Ratio] 14.3 % 11.6-14.6 [facility] Estimated glomerular filtrat ion rate (GFR) AmericanOrdered By: Julieth Olmedo on 09-25-2024 Estimated GFR (MDRD) Amer 54 mL/min Low >60 [facility] Comment on above: GFR Calc Glomerular filtration rate ( GFR) estimationOrdered By: Julieth Olmedo on 09-25-2024 Estimated GFR (MDRD) Non-Af Amer 45 mL/min Low >60 [facility] Comment on above: Non- GFR Calc Glucose measurementOrdered B y: Julieth Olmedo on 09-25-2024 Glucose [Mass/Vol] 127 mg/dL High 74-106 [facility] Comment on above: Fasting Glucose resu lt greater than or equal to 126 mg/dL suggests DIABETES MELLITUS per A.D.A. criteria. Hematocrit Auto (Bld) [Volum e fraction]Ordered By: Julieth Olmedo on 09-25-2024 Hematocrit (Bld) [Volume fraction] 32.7 % Low 37-47 [facility] Hemoglobin measurementOrdere d By: Julieth Olmedo on 09-25-2024 Hemoglobin (Bld) [Mass/Vol] 10.5 g/dL Low 12.0-15.0 [facility] - Chemistry and C hemistry - challengeOrdered By: Julieth Olmedo on 09-25-2024 AST [Catalytic activity/Vol] 44 U/L High 15-37 [facility] MCV (mean corpuscular volume ) determinationOrdered By: Julieth Olmedo on 09-25-2024 MCV (RBC) [Entitic vol] 98.2 fL 81-99 [facility] Mean corpuscular hemoglobin (MCH) determinationOrdered By: Julieth Olmedo on 09-25-2024 MCH (RBC) [Entitic mass] 31.5 pg 27.0-32.0 [facility] Mean corpuscular hemoglobin concentration (MCHC) determinationOrdered By: Julieth Olmedo on 09-25-2024 MCHC (RBC) [Mass/Vol] 32.1 g/dL 32-36 [facility] Mean platelet volume determi nationOrdered By: Julieth Olmedo on 09-25-2024 Platelet mean volume (Bld) [Entitic vol] 11.1 fL 6.2-12.0 [facility] Platelet countOrdered By: Chen on 09-25-2024 Platelets (Bld) [#/Vol] 114 10*3/uL Low 150-450 [facility] Potassium measurementOrdered By: Julieth Olmedo on 09-25-2024 Potassium [Moles/Vol] 3.5 mmol/L 3.5-5.1 [facility] RBC Auto (Bld) [#/Vol]Ordere d By: Julieth Olmedo on 09-25-2024 RBC (Bld) [#/Vol] 3.33 10*6/uL Low 4.2-5.4 [facility] Serum anion gap measurementO rdered By: Julieth Olmedo on 09-25-2024 Anion gap [Moles/Vol] 8 mmol/L 5-15 [facility] Serum globulin measurementOr dered By: Julieth Olmedo on 09-25-2024 Globulin (S) [Mass/Vol] 4.0 g/dL 2.2-4.2 [facility] Serum or plasma alanine taylor otransferase (ALT) measurementOrdered By: Julieth Olmedo on 09-25-2024 ALT [Catalytic activity/Vol] 27 U/L 13-56 [facility] Serum or plasma albumin kirstin urement (mass/volume)Ordered By: Julieth Olmedo on 09-25-2024 Albumin [Mass/Vol] 2.5 g/dL Low 3.2-5.0 [facility] Serum or plasma alkaline loan sphatase measurementOrdered By: Julieth Olmedo on 09-25-2024 ALP [Catalytic activity/Vol] 152 U/L High 45-117 [facility] Serum or plasma calcium kirstin urement (mass/volume)Ordered By: Julieth Olmedo on 09-25-2024 Calcium [Mass/Vol] 9.0 mg/dL 8.5-10.1 [facility] Serum or plasma creatinine m easurement (mass/volume)Ordered By: Julieth Olmedo on 09-25-2024 Creatinine [Mass/Vol] 1.23 mg/dL High 0.55-1.02 [facility] Comment on above: The validity of the calculated GFR & GFRAA in patients over 70 years has not been determined. Clinical correlation is essential. Serum or plasma urea nitroge n measurement (mass/volume)Ordered By: Julieth Olmedo on 09-25-2024 Urea nitrogen [Mass/Vol] 18 mg/dL 7-18 [facility] Sodium levelOrdered By: Julieth Olmedo on 09-25-2024 Sodium [Moles/Vol] 141 mmol/L 136-145 [facility] Total proteinOrdered By: Karla Olmedo on 09-25-2024 Protein [Mass/Vol] 6.5 g/dL 6.4-8.2 [facility] Venous blood ammonia measure mentOrdered By: Julieth Olmedo on 09-25-2024 Ammonia (P) [Moles/Vol] 48.0 umol/L High [facility] White blood cell (WBC) count Ordered By: Julieth Olmedo on 09-25-2024 WBC (Bld) [#/Vol] 7.0 10*3/uL 4.4-11.0 [facility] Albumin to globulin ratioOrd ered By: Julieth Olmedo on 08-07-2024 Albumin/Globulin [Mass ratio] 0.8 {ratio} Low 0.9-2.4 [facility] Comment on above: Order Comment: 211.1 Performed By: #### L 503.5510, L500.4050 #### [facility] [address] [place], [address] Bilirubin, totalOrdered By: Julieth Olmedo on 08-07-2024 Bilirubin [Mass/Vol] 1.00 mg/dL Normal 0.20-1.00 [facility] Comment on above: For patients on eltr ombopag therapy, use of Dimension [place] TBIL is not recommended. Order Comment: 211.1 Result Comment: For patients on eltrombopag therapy, use of Dimension [place] TBIL is not recommended. Performed By: #### L 503.5510, L500.4050 #### [facility] [address] [place], [address] Blood urea nitrogen (BUN)/cr eatinine ratioOrdered By: Julieth Olmedo on 08-07-2024 Urea nitrogen/Creatinine [Mass ratio] 10.9 mg/mg 10-20 [facility] Carbon dioxide measurementOr dered By: Julieth Olmedo on 08-07-2024 CO2 [Moles/Vol] 27.0 mmol/L Normal 21.0-32.0 [facility] Comment on above: Order Comment: 211.1 Performed By: #### L 503.5510, L500.4050 #### [facility] [address] [place], [address] Chloride measurementOrdered By: Julieth Olmedo on 12-31-2024 Chloride [Moles/Vol] 106 mmol/L Normal 98-107 [facility] Comment on above: Order Comment: 211.1 Performed By: #### L 503.5510, [id number] #### [facility] [address] [place], [address] Comprehensive Metabolic Prof ilon 08-07-2024 ALK P 174 U/L High 45-117 [facility] Comment on above: Order Comment: 211.1 Performed By: #### L 503.5510, [id number] #### [facility] [address] [place], [address] BUN/CRE 10.9 RATIO Normal 10-20 [facility] Comment on above: Order Comment: 211.1 Performed By: #### L 503.5510, L500.4050 #### [facility] [address] [place], [address] CA,Total 9.3 mg/dL Normal 8.5-10.1 [facility] Comment on above: Order Comment: 211.1 Performed By: #### L 503.5510, [id number] #### [facility] [address] [place], [address] EST GFR - AA 52 mL/min Low >60 [facility] Comment on above: Order Comment: 211.1 Result Comment: Afri can Jamaican GFR Calc Performed By: #### L 503.5510, [id number] #### [facility] [address] [place], [address] GAP 6 Normal 5-15 [facility] Comment on above: Order Comment: 211.1 Performed By: #### L 503.5510, [id number] #### [facility] [address] [place], [address] GFR/1.73 sq M.predicted among non-blacks MDRD (S/P/Bld) [Vol rate/Area] 43 mL/min/{1.73_m2} Low >60 [facility] Comment on above: Order Comment: . Result Comment: Non- GFR Calc Performed By: #### L 503.5510, L500.4050 #### [facility] [address] [place], [address] T PROT 6.4 g/dL Normal 6.4-8.2 [facility] Comment on above: Order Comment: . Performed By: #### L 503.5510, [id number] #### [facility] [address] [place], [address] Comprehensive Metabolic Prof ilOrdered By: Julieth Olmedo on 08-07-2024 AST [Catalytic activity/Vol] 47 U/L High 15-37 [facility] Comment on above: Order Comment: Performed By: #### L 503.5510, L500.4050 #### [facility] [address] [place], [address] Estimated glomerular filtrat ion rate (GFR) AmericanOrdered By: Julieth Olmedo on 08-07-2024 Estimated GFR (MDRD) Amer 52 mL/min Low >60 [facility] Comment on above: GFR Calc Glomerular filtration rate ( GFR) estimationOrdered By: Julieth Olmedo on 08-07-2024 Estimated GFR (MDRD) Non-Af Amer 43 mL/min Low >60 [facility] Comment on above: Non- GFR Calc Glucose measurementOrdered B y: Julieth Olmedo on 08-07-2024 Glucose [Mass/Vol] 127 mg/dL High 74-106 [facility] Comment on above: Fasting Glucose resu lt greater than or equal to 126 mg/dL suggests DIABETES MELLITUS per A.D.A. criteria. Order Comment: . Result Comment: Fast ing Glucose result greater than or equal to 126 mg/dL suggests DIABETES MELLITUS per A.D.A. criteria. Performed By: #### L 503.5510, L500.4050 #### [facility] [address] [place], [address] Potassium measurementOrdered By: Julieth Olmedo on 08-07-2024 Potassium [Moles/Vol] 3.8 mmol/L Normal 3.5-5.1 [facility] Comment on above: Order Comment: 211.1 Performed By: #### L 503.5510, L500.4050 #### [facility] [address] [place], [address] Serum anion gap measurementO rdered By: Julieth Olmedo on 08-07-2024 Anion gap [Moles/Vol] 6 mmol/L 5-15 [facility] Serum globulin measurementOr dered By: Julieth Olmedo on 08-07-2024 Globulin (S) [Mass/Vol] 3.6 g/dL Normal 2.2-4.2 [facility] Comment on above: Order Comment: 211.1 Performed By: #### L 503.5510, L500.4050 #### [facility] [address] [place], [address] Serum or plasma alanine taylor otransferase (ALT) measurementOrdered By: Julieth Olmedo on 08-07-2024 ALT [Catalytic activity/Vol] 27 U/L Normal 13-56 [facility] Comment on above: Order Comment: 211.1 Performed By: #### L 503.5510, L500.4050 #### [facility] [address] [place], [address] Serum or plasma albumin kirstin urement (mass/volume)Ordered By: Julieth Olmedo on 08-07-2024 Albumin [Mass/Vol] 2.8 g/dL Low 3.2-5.0 [facility] Comment on above: Order Comment: 211.1 Performed By: #### L 503.5510, L500.4050 #### [facility] [address] [place], [address] Serum or plasma alkaline loan sphatase measurementOrdered By: Julieth Olmedo on 08-07-2024 ALP [Catalytic activity/Vol] 174 U/L High 45-117 [facility] Serum or plasma calcium kirstin urement (mass/volume)Ordered By: Julieth Olmedo on 08-07-2024 Calcium [Mass/Vol] 9.3 mg/dL 8.5-10.1 [facility] Serum or plasma creatinine m easurement (mass/volume)Ordered By: Julieth Olmedo on 08-07-2024 Creatinine [Mass/Vol] 1.28 mg/dL High 0.55-1.02 [facility] Comment on above: The validity of the calculated GFR & GFRAA in patients over 70 years has not been determined. Clinical correlation is essential. Order Comment: 211.1 Result Comment: The validity of the calculated GFR GFRAA in patients over 70 years has not been determined. Clinical correlation is essential. Performed By: #### L 503.5510, L500.4050 #### [facility] [address] [place], [address] Serum or plasma urea nitroge n measurement (mass/volume)Ordered By: Julieth Olmedo on 08-07-2024 Urea nitrogen [Mass/Vol] 14 mg/dL Normal 7-18 [facility] Comment on above: Order Comment: 211.1 Performed By: #### L 503.5510, L500.4050 #### [facility] [address] [place], [address] Sodium levelOrdered By: Julieth Olmedo on 08-07-2024 Sodium [Moles/Vol] 139 mmol/L Normal 136-145 [facility] Comment on above: Order Comment: 211.1 Performed By: #### L 503.5510, [id number] #### [facility] [address] [place], [address] Total proteinOrdered By: Karla Olmedo on 08-07-2024 Protein [Mass/Vol] 6.4 g/dL 6.4-8.2 [facility] Venous blood ammonia measure mentOrdered By: Julieth Olmedo on 08-07-2024 Ammonia (P) [Moles/Vol] 31.0 umol/L Normal 11-32 [facility] Comment on above: Order Comment: Performed By: #### L 503.5510, L500.4050 #### [facility] [address] [place], [address] Basic Metabolic Profile (BMP )on 08-03-2024 BUN/CRE 11.8 RATIO Normal 10-20 [facility] Comment on above: Order Comment: Performed By: #### L 500.2500 #### [facility] [address] [place], [address] CA,Total 8.9 mg/dL Normal 8.5-10.1 [facility] Comment on above: Order Comment: Performed By: #### L 500.2500 #### [facility] [address] [place], [address] Chloride [Moles/Vol] 107 mmol/L Normal 98-107 [facility] Comment on above: Order Comment: Performed By: #### L 500.2500 #### [facility] [address] [place], [address] CO2 [Moles/Vol] 26.0 mmol/L Normal 21.0-32.0 [facility] Comment on above: Order Comment: Performed By: #### L 500.2500 #### [facility] [address] [place], [address] Creatinine [Mass/Vol] 1.27 mg/dL High 0.55-1.02 [facility] Comment on above: Order Comment: Result Comment: The validity of the calculated GFR GFRAA in patients over 70 years has not been determined. Clinical correlation is essential. Performed By: #### L 500.2500 #### [facility] [address] [place], [address] EST GFR - AA 52 mL/min Low >60 [facility] Comment on above: Order Comment: Result Comment: Afri can Jamaican GFR Calc Performed By: #### L 500.2500 #### [facility] [address] [place], [address] GAP 7 Normal 5-15 [facility] Comment on above: Order Comment: Performed By: #### L 500.2500 #### [facility] [address] [place], [address] GFR/1.73 sq M.predicted among non-blacks MDRD (S/P/Bld) [Vol rate/Area] 43 mL/min/{1.73_m2} Low >60 [facility] Comment on above: Order Comment: Result Comment: Non- GFR Calc Performed By: #### L 500.2500 #### [facility] [address] [place], [address] Glucose [Mass/Vol] 117 mg/dL High 74-106 [facility] Comment on above: Order Comment: Result Comment: Fast ing Glucose result from 100 to 125 mg/dL suggests IMPAIRED HOMEOSTASIS per A.D.A. criteria. Performed By: #### L 500.2500 #### [facility] [address] [place], [address] Potassium [Moles/Vol] 3.5 mmol/L Normal 3.5-5.1 [facility] Comment on above: Order Comment: Performed By: #### L 500.2500 #### [facility] [address] [place], [address] Sodium [Moles/Vol] 140 mmol/L Normal 136-145 [facility] Comment on above: Order Comment: Performed By: #### L 500.2500 #### [facility] [address] [place], [address] Urea nitrogen [Mass/Vol] 15 mg/dL Normal 7-18 [facility] Comment on above: Order Comment: 211- Performed By: #### L 500.2795 #### [facility] [address] [place], [address] Blood urea nitrogen (BUN)/cr eatinine ratioOrdered By: Julieth Olmedo on 08-03-2024 Urea nitrogen/Creatinine [Mass ratio] 11.8 mg/mg 10-20 [facility] Carbon dioxide measurementOr dered By: Julieth Olmedo on 08-03-2024 CO2 [Moles/Vol] 26.0 mmol/L 21.0-32.0 [facility] Chloride measurementOrdered By: Julieth Olmedo on 08-03-2024 Chloride [Moles/Vol] 107 mmol/L 98-107 [facility] Estimated glomerular filtrat ion rate (GFR) AmericanOrdered By: Julieth Olmedo on 08-03-2024 Estimated GFR (MDRD) Amer 52 mL/min Low >60 [facility] Comment on above: GFR Calc Glomerular filtration rate ( GFR) estimationOrdered By: Julieth Olmedo on 08-03-2024 Estimated GFR (MDRD) Non-Af Amer 43 mL/min Low >60 [facility] Comment on above: Non- GFR Calc Glucose measurementOrdered B y: Julieth Olmedo on 08-03-2024 Glucose [Mass/Vol] 117 mg/dL High 74-106 [facility] Comment on above: Fasting Glucose resu lt from 100 to 125 mg/dL suggests IMPAIRED HOMEOSTASIS per A.D.A. criteria. Potassium measurementOrdered By: Julieth Olmedo on 08-03-2024 Potassium [Moles/Vol] 3.5 mmol/L 3.5-5.1 [facility] Serum anion gap measurementO rdered By: Julieth Olmedo on 08-03-2024 Anion gap [Moles/Vol] 7 mmol/L 5-15 [facility] Serum or plasma calcium kirstin urement (mass/volume)Ordered By: Julieth Olmedo on 08-03-2024 Calcium [Mass/Vol] 8.9 mg/dL 8.5-10.1 [facility] Serum or plasma creatinine m easurement (mass/volume)Ordered By: Julieth Olmedo on 08-03-2024 Creatinine [Mass/Vol] 1.27 mg/dL High 0.55-1.02 [facility] Comment on above: The validity of the calculated GFR & GFRAA in patients over 70 years has not been determined. Clinical correlation is essential. Serum or plasma urea nitroge n measurement (mass/volume)Ordered By: Julieth Olmedo on 08-03-2024 Urea nitrogen [Mass/Vol] 15 mg/dL 02-22 [facility] Sodium levelOrdered By: Julieth Olmedo on 08-03-2024 Sodium [Moles/Vol] 140 mmol/L 136-145 [facility] Ammoniaon 08-02-2024 Ammonia (P) [Moles/Vol] 40.0 umol/L High [facility] Comment on above: Order Comment: 211.1 Performed By: #### L 503.5510 #### [facility] [address] [facility] [id number] Venous blood ammonia measure mentOrdered By: Julieth Olmedo on 08-02-2024 Ammonia (P) [Moles/Vol] 40.0 umol/L High [facility] TSH QnOrdered By: Julieth gordillo on 07-25-2024 Thyroid Stimulating Hormone (TSH) 1.990 uIU/mL 0.358-3.740 [facility] Thyroid Stim Hormone (TSH)on 07-25-2024 TSH 1.990 uIU/mL Normal 0.358-3.740 [facility] Comment on above: Order Comment: 211.1 Performed By: #### L 501.9520 #### [facility] [address] [place], [place], [id number] Ammoniaon 07-20-2024 Ammonia (P) [Moles/Vol] 24.0 umol/L Normal [facility] Comment on above: Order Comment: 211.1 Performed By: #### L 100.0500, L501.9985, L500.4050 #### [facility] [address] [place], [address] Venous blood ammonia measure mentOrdered By: Julieth Olmedo on 07-20-2024 Ammonia (P) [Moles/Vol] 24.0 umol/L 11-32 [facility] Basic Metabolic Profile (BMP )on 07-19-2024 BUN/CRE 9.2 RATIO Low 10-20 [facility] Comment on above: Order Comment: 211. Performed By: #### L 100.0600, L500.2500 #### [facility] [address] [place], [address] CA,Total 9.3 mg/dL Normal 8.5-10.1 [facility] Comment on above: Order Comment: . Performed By: #### L 100.0600, L500.2500 #### [facility] [address] [place], [address] EST GFR - AA 50 mL/min Low >60 [facility] Comment on above: Order Comment: .1 Result Comment: Afri can Jamaican GFR Calc Performed By: #### L 100.0600, L500.2500 #### [facility] [address] [place], [address] GAP 6 Normal 5-15 [facility] Comment on above: Order Comment: . Performed By: #### L 100.0600, L500.2500 #### [facility] [address] [place], [address] GFR/1.73 sq M.predicted among non-blacks MDRD (S/P/Bld) [Vol rate/Area] 42 mL/min/{1.73_m2} Low >60 [facility] Comment on above: Order Comment: 211.1 Result Comment: Non- GFR Calc Performed By: #### L 100.0600, L500.2500 #### [facility] [address] [place], [place], [address] Blood urea nitrogen (BUN)/cr eatinine ratioOrdered By: Julieth Olmedo on 07-19-2024 Urea nitrogen/Creatinine [Mass ratio] 9.2 mg/mg Low 10-20 [facility] Carbon dioxide measurementOr dered By: Julieth Olmedo on 07-19-2024 CO2 [Moles/Vol] 28.0 mmol/L Normal 21.0-32.0 [facility] Comment on above: Order Comment: 211.1 Performed By: #### L 100.0600, L500.2500 #### [facility] [address] [place], [place], [address] Chloride measurementOrdered By: Julieth Olmedo on 07-19-2024 Chloride [Moles/Vol] 107 mmol/L Normal 98-107 [facility] Comment on above: Order Comment: 211.1 Performed By: #### L 100.0600, L500.2500 #### [facility] [address] [facility] [address] Estimated glomerular filtrat ion rate (GFR) AmericanOrdered By: Julieth Olmedo on 07-19-2024 Estimated GFR (MDRD) Amer 50 mL/min Low >60 [facility] Comment on above: GFR Calc Glomerular filtration rate ( GFR) estimationOrdered By: Julieth Olmedo on 07-19-2024 Estimated GFR (MDRD) Non-Af Amer 42 mL/min Low >60 [facility] Comment on above: Non- GFR Calc Glucose measurementOrdered B y: Julieth Olmedo on 07-19-2024 Glucose [Mass/Vol] 125 mg/dL High 74-106 [facility] Comment on above: Fasting Glucose resu lt from 100 to 125 mg/dL suggests IMPAIRED HOMEOSTASIS per A.D.A. criteria. Order Comment: 211.1 Result Comment: Fast ing Glucose result from 100 to 125 mg/dL suggests IMPAIRED HOMEOSTASIS per A.D.A. criteria. Performed By: #### L 100.0600, L500.2500 #### [facility] [address] [place], [address] HH, Hemoglobin AND Hematocri ton 07-19-2024 Hematocrit (Bld) [Volume fraction] 28.5 % Low 37-47 [facility] Comment on above: Order Comment: 211.1 Performed By: #### L 100.0600, L500.2500 #### [facility] [address] [place], [address] Hemoglobin (Bld) [Mass/Vol] 8.8 g/dL Low 12.0-15.0 [facility] Comment on above: Order Comment: 211.1 Performed By: #### L 100.0600, L500.2500 #### [facility] [address] [place], [address] Hematocrit Auto (Bld) [Volum e fraction]Ordered By: Julieth Olmedo on 07-19-2024 Hematocrit (Bld) [Volume fraction] 28.5 % Low 37-[address] [place] [address] Hemoglobin measurementOrdere d By: Julieth Olmedo on 07-19-2024 Hemoglobin (Bld) [Mass/Vol] 8.8 g/dL Low 12.0-15.0 [facility] Potassium measurementOrdered By: Julieth Olmedo on 07-19-2024 Potassium [Moles/Vol] 3.7 mmol/L Normal 3.5-5.1 [facility] Comment on above: Order Comment: 211.1 Performed By: #### L 100.0600, L500.2500 #### [facility] [address] [place], [address] Serum anion gap measurementO rdered By: Julieth Olmedo on 07-19-2024 Anion gap [Moles/Vol] 6 mmol/L 5-15 [facility] Serum or plasma calcium kirstin urement (mass/volume)Ordered By: Julieth Olmedo on 07-19-2024 Calcium [Mass/Vol] 9.3 mg/dL 8.5-10.1 [facility] Serum or plasma creatinine m easurement (mass/volume)Ordered By: Julieth Olmedo on 07-19-2024 Creatinine [Mass/Vol] 1.31 mg/dL High 0.55-1.02 [facility] Comment on above: The validity of the calculated GFR & GFRAA in patients over 70 years has not been determined. Clinical correlation is essential. Order Comment: 211.1 Result Comment: The validity of the calculated GFR GFRAA in patients over 70 years has not been determined. Clinical correlation is essential. Performed By: #### L 100.0600, L500.2500 #### [facility] [address] [place], [address] Serum or plasma urea nitroge n measurement (mass/volume)Ordered By: Julieth Olmedo on 07-19-2024 Urea nitrogen [Mass/Vol] 12 mg/dL Normal 7-18 [facility] Comment on above: Order Comment: 211.1 Performed By: #### L 100.0600, L500.2500 #### [facility] [address] [place], [address] Sodium levelOrdered By: Julieth Olmedo on 07-19-2024 Sodium [Moles/Vol] 140 mmol/L Normal 136-145 [facility] Comment on above: Order Comment: 211. Performed By: #### L 100.0600, L500.2500 #### [facility] [address] [place], [address] Ammoniaon 07-18-2024 Ammonia (P) [Moles/Vol] 40.0 umol/L High [facility] Comment on above: Order Comment: 211- Performed By: #### L 503.5510 #### [facility] [address] [place], [address] Venous blood ammonia measure mentOrdered By: Julieth Olmedo on 07-18-2024 Ammonia (P) [Moles/Vol] 40.0 umol/L High [facility] HH, Hemoglobin AND Hematocri ton 07-17-2024 Hematocrit (Bld) [Volume fraction] 24.0 % Low 37-[address] [place] [address] Comment on above: Order Comment: 211.1 Performed By: #### L 503.5510 #### [facility] [address] [place], [place], [id number] (493) Hemoglobin (Bld) [Mass/Vol] 7.4 g/dL Low 12.0-15.0 [facility] Comment on above: Order Comment: 211.1 Performed By: #### L 503.5510 #### [facility] [address] [place], [place], [phone] ([address] Hematocrit Auto (Bld) [Volum e fraction]Ordered By: Julieth Olmedo on 07-17-2024 Hematocrit (Bld) [Volume fraction] 24.0 % Low [address] [place] [address] Hemoglobin measurementOrdere d By: Julieth Olmedo on 07-17-2024 Hemoglobin (Bld) [Mass/Vol] 7.4 g/dL Low 12.0-15.0 [facility] Ammoniaon 07-11-2024 Ammonia (P) [Moles/Vol] 44.0 umol/L High [address] [place] [address] Comment on above: Performed By: #### L 503.5510 #### [facility] [address] [place], [place], [id number] Venous blood ammonia measure mentOrdered By: Julieth Olmedo on 07-11-2024 Ammonia (P) [Moles/Vol] 44.0 umol/L [address] Folates, (Folic Acid)on FOLATES 11.90 ng/mL Normal 3.1-55.4 [facility] Comment on above: Order Comment: 211.1 Performed By: #### L 100.0500, L501.9985, L500.4050 #### [facility] [address] [place], [place], [phone] (382) HH, Hemoglobin AND Hematocri ton 07-10-2024 Hematocrit (Bld) [Volume fraction] 25.2 % Low [address] [place] [address] Comment on above: Order Comment: 211.1 Performed By: #### L 100.0500, L501.9985, L500.4050 #### [facility] [address] [place], [address] Hemoglobin (Bld) [Mass/Vol] 7.7 g/dL Low 12.0-15.0 [facility] Comment on above: Order Comment: 211.1 Performed By: #### L 100.0500, L501.9985, L500.4050 #### [facility] [address] [place], [address] Ironon 07-10-2024 Iron [Mass/Vol] 73 ug/dL Normal 50-170 [facility] Comment on above: Order Comment: 211.1 Performed By: #### L 100.0500, L501.9985, L500.4050 #### [facility] [address] [place], [address] Vitamin B12on 07-10-2024 Cobalamin (Vitamin B12) [Mass/Vol] 1301 pg/mL High 211-911 [facility] Comment on above: Order Comment: 211.1 Performed By: #### L 100.0500, L501.9985, L500.4050 #### [facility] [address] [place], [address] CBC-Complete Blood Cnt No Di ffon 07-09-2024 Erythrocyte distribution width (RBC) [Ratio] 14.6 % Normal 11.6-14.6 [facility] Comment on above: Order Comment: 211.1 Performed By: #### L 100.0500, L501.9985, L500.4050 #### [facility] [address] [place], [address] Hematocrit (Bld) [Volume fraction] 25.6 % Low 37-47 [facility] Comment on above: Order Comment: 211.1 Performed By: #### L 100.0500, L501.9985, L500.4050 #### [facility] [address] [place], [address] Hemoglobin (Bld) [Mass/Vol] 7.8 g/dL Low 12.0-15.0 [facility] Comment on above: Order Comment: 211.1 Performed By: #### L 100.0500, L501.9985, L500.4050 #### [facility] [address] [place], [address] MCH (RBC) [Entitic mass] 30.4 pg Normal 27.0-32.0 [facility] Comment on above: Order Comment: 211.1 Performed By: #### L 100.0500, L501.9985, L500.4050 #### [facility] [address] [place], [address] MCHC (RBC) [Mass/Vol] 30.5 g/dL Low 32-36 [facility] Comment on above: Order Comment: 211.1 Performed By: #### L 100.0500, L501.9985, L500.4050 #### [facility] [address] [place], [address] MCV (RBC) [Entitic vol] 99.6 fL High 81-99 [facility] Comment on above: Order Comment: 211.1 Performed By: #### L 100.0500, L501.9985, L500.4050 #### [facility] [address] [place], [address] Platelet mean volume (Bld) [Entitic vol] 10.7 fL Normal 6.2-12.0 [facility] Comment on above: Order Comment: 211.1 Performed By: #### L 100.0500, L501.9985, L500.4050 #### [facility] [address] [place], [address] Platelets (Bld) [#/Vol] 112 10*3/uL Low 150-450 [facility] Comment on above: Order Comment: 211.1 Performed By: #### L 100.0500, L501.9985, L500.4050 #### [facility] [address] [place], [address] RBC (Bld) [#/Vol] 2.57 10*6/uL Low 4.2-5.4 [facility] Comment on above: Order Comment: 211.1 Performed By: #### L 100.0500, L501.9985, L500.4050 #### [facility] [address] [place], [address] RDW SD 52.4 fl High 35.1-43.9 [facility] Comment on above: Order Comment: 211.1 Performed By: #### L 100.0500, L501.9985, L500.4050 #### [facility] [address] [place], [address] WBC (Bld) [#/Vol] 5.1 10*3/uL Normal 4.4-11.0 [facility] Comment on above: Order Comment: 211.1 Performed By: #### L 100.0500, L501.9985, L500.4050 #### [facility] [address] [place], [address] Comprehensive Metabolic Prof ilon 07-09-2024 Albumin [Mass/Vol] 2.3 g/dL Low 3.2-5.0 [facility] Comment on above: Order Comment: 211.1 Performed By: #### L 100.0500, L501.9985, L500.4050 #### [facility] [address] [place], [address] Albumin/Globulin [Mass ratio] 0.8 {ratio} Low 0.9-2.4 [facility] Comment on above: Order Comment: 211.1 Performed By: #### L 100.0500, L501.9985, L500.4050 #### [facility] [address] [place], [address] ALK P 122 U/L High 45-117 [facility] Comment on above: Order Comment: 211.1 Performed By: #### L 100.0500, L501.9985, L500.4050 #### [facility] [address] [place], [address] ALT [Catalytic activity/Vol] 30 U/L Normal 13-56 [facility] Comment on above: Order Comment: 211.1 Performed By: #### L 100.0500, L501.9985, L500.4050 #### [facility] [address] [place], [address] AST [Catalytic activity/Vol] 42 U/L High 15-37 [facility] Comment on above: Order Comment: 211.1 Performed By: #### L 100.0500, L501.9985, L500.4050 #### [facility] [address] [place], [address] Bilirubin [Mass/Vol] 0.80 mg/dL Normal 0.20-1.00 [facility] Comment on above: Order Comment: 211.1 Result Comment: For patients on eltrombopag therapy, use of Dimension [place] TBIL is not recommended. Performed By: #### L 100.0500, L501.9985, L500.4050 #### [facility] [address] [place], [address] BUN/CRE 14.2 RATIO Normal 10-20 [facility] Comment on above: Order Comment: 211.1 Performed By: #### L 100.0500, L501.9985, L500.4050 #### [facility] [address] [place], [address] CA,Total 8.9 mg/dL Normal 8.5-10.1 [facility] Comment on above: Order Comment: 211.1 Performed By: #### L 100.0500, L501.9985, L500.4050 #### [facility] [address] [place], [address] Chloride [Moles/Vol] 109 mmol/L High 98-107 [facility] Comment on above: Order Comment: 211.1 Performed By: #### L 100.0500, L501.9985, L500.4050 #### [facility] [address] [place], [address] CO2 [Moles/Vol] 27.0 mmol/L Normal 21.0-32.0 [facility] Comment on above: Order Comment: 211.1 Performed By: #### L 100.0500, L501.9985, L500.4050 #### [facility] [address] [place], [address] Creatinine [Mass/Vol] 1.13 mg/dL High 0.55-1.02 [facility] Comment on above: Order Comment: 211.1 Result Comment: The validity of the calculated GFR GFRAA in patients over 70 years has not been determined. Clinical correlation is essential. Performed By: #### L 100.0500, L501.9985, L500.4050 #### [facility] [address] [place], [address] EST GFR - AA 60 mL/min Normal >60 [facility] Comment on above: Order Comment: 211.1 Result Comment: Afri can Jamaican GFR Calc Performed By: #### L 100.0500, L501.9985, L500.4050 #### [facility] [address] [place], [address] GAP 6 Normal 5-15 [facility] Comment on above: Order Comment: 211.1 Performed By: #### L 100.0500, L501.9985, L500.4050 #### [facility] [address] [place], [address] GFR/1.73 sq M.predicted among non-blacks MDRD (S/P/Bld) [Vol rate/Area] 49 mL/min/{1.73_m2} Low >60 [facility] Comment on above: Order Comment: 211.1 Result Comment: Non- GFR Calc Performed By: #### L 100.0500, L501.9985, L500.4050 #### [facility] [address] [place], [address] Globulin (S) [Mass/Vol] 3.0 g/dL Normal 2.2-4.2 [facility] Comment on above: Order Comment: . Performed By: #### L 100.0500, L501.9985, L500.4050 #### [facility] [address] [place], [address] Glucose [Mass/Vol] 120 mg/dL High 74-106 [facility] Comment on above: Order Comment: .1 Result Comment: Fast ing Glucose result from 100 to 125 mg/dL suggests IMPAIRED HOMEOSTASIS per A.D.A. criteria. Performed By: #### L 100.0500, L501.9985, L500.4050 #### [facility] [address] [place], [address] Potassium [Moles/Vol] 3.4 mmol/L Low 3.5-5.1 [facility] Comment on above: Order Comment: .1 Performed By: #### L 100.0500, L501.9985, L500.4050 #### [facility] [address] [place], [address] Sodium [Moles/Vol] 142 mmol/L Normal 136-145 [facility] Comment on above: Order Comment: .1 Performed By: #### L 100.0500, L501.9985, L500.4050 #### [facility] [address] [place], [address] T PROT 5.3 g/dL Low 6.4-8.2 [facility] Comment on above: Order Comment: 211.1 Performed By: #### L 100.0500, L501.9985, L500.4050 #### [facility] [address] [place], [address] Urea nitrogen [Mass/Vol] 16 mg/dL Normal 7-18 [facility] Comment on above: Order Comment: 211.1 Performed By: #### L 100.0500, L501.9985, L500.4050 #### [facility] [address] [place], [address] Hemoglobin A1con 07-09-2024 HbA1c (Bld) [Mass fraction] 5.5 % Normal 3.8-5.6 [facility] Comment on above: Order Comment: 211.1 Result Comment: Norm al < 5.7 % Prediabetic 5.7 - 6.4 % Diabetic >or= 6.5 % Please note range changes. Performed By: #### L 100.0500, L501.9985, L500.4050 #### [facility] [address] [place], [address] [id number] 07-06-2024 [id number] Patient Choice Patient Name: MIKEL WINSTON Date of : 1945 Normal [facility] [id number] 07-04-2024 [id number] Normal [facility] AMMONIAon 07-04-2024 Ammonia (P) [Moles/Vol] 15 umol/L Normal 9-30 [facility] Comment on above: Performed By: #### L [id number] ####Attendant [employer]: RUTH ANN BRAGG ([phone])[facility] ([facility])[address] [place] [address] CALCIUM, IONIZEDon CALCIUM IONIZED 4.60 mg/dL Normal 4.30-5.20 [facility] Comment on above: Performed By: #### L [id number] ####Attendant [employer]: RUTH ANN BRAGG ([phone])[facility] ([facility])[address] PH, IONIZED CALCIUM 7.47 High 7.31-7.46 [facility] Comment on above: Performed By: #### L [id number] ####Attendant [employer]: RUTH ANN OBREGONDavidSHELTON ([phone])[facility] ([facility])[address] CBC W Auto Differential pane l (Bld)on 07-04-2024 Basophils (Bld) [#/Vol] 0 10*3/uL 0.0 - 0.2 10*3/uL [facility] [employer] Basophils/100 WBC (Bld) 0.5 % 0.0 - 2.0 % [facility] [employer] Eosinophils (Bld) [#/Vol] 0.4 10*3/uL 0. 0 - 0.5 10*3/uL [facility] [employer] Eosinophils/100 WBC (Bld) 6.3 % High 0.0 - 6.0 % [facility] [employer] Erythrocyte distribution width (RBC) [Ratio] 14.5 % 11.5 - 15.0 % [facility] [employer] Hematocrit (Bld) [Volume fraction] 25.2 % Low 35.0 - 47.0 % [facility] [employer] Hemoglobin (Bld) [Mass/Vol] 7.7 g/dL Low 11.7 - 16.0 g/dL [facility] [employer] Immature granulocytes (Bld) [#/Vol] 0 10*3/uL NINF - 0.1 10*3/uL [facility] [employer] Immature granulocytes/100 WBC (Bld) 0.5 % 0.0 - 2.0 % [facility] [employer] Interpretation and review of laboratory results Abnormal [facility] th IPF 3 [facility] Lymphocytes (Bld) [#/Vol] 1.4 10*3/uL 1. 0 - 4.3 10*3/uL [facility] Lymphocytes/100 WBC (Bld) 24.4 % 15 .0 - 45.0 % [facility] MCH (RBC) [Entitic mass] 31 pg 26. 0 - 34.0 pg [facility] MCHC (RBC) [Mass/Vol] 30.6 % 30.5 - 36.0 % [facility] MCV (RBC) [Entitic vol] 101.6 fL High 77.0 - 99.0 fL [facility] Monocytes (Bld) [#/Vol] 1.2 10*3/uL High 0.0 - 0.9 10*3/uL [facility] Monocytes/100 WBC (Bld) 20.2 % High 5.0 - 13.0 % [facility] Neutrophils (Bld) [#/Vol] 2.7 10*3/uL 1. 8 - 7.5 10*3/uL [facility] Neutrophils/100 WBC (Bld) 48.1 % 38 .0 - 82.0 % [facility] Nucleated RBC/100 WBC (Bld) [Ratio] 0 % [facility] Platelet mean volume (Bld) [Entitic vol] 10.9 fL 9.0 - 12.7 fL [facility] Platelets (Bld) [#/Vol] 94 10*3/uL Low 140 - 440 10*3/uL [facility] RBC (Bld) [#/Vol] 2.48 10*6/uL Low 3.80 - 5.2 0 10*6/uL [facility] WBC (Bld) [#/Vol] 5.7 10*3/uL 3.6 - 10.7 10*3/uL [facility] CBC WITH AUTO DIFFERENTIALon 07-04-2024 Basophils (Bld) [#/Vol] 0.0 10*3/uL Normal 0.0-0.2 [facility] Comment on above: Performed By: #### L [id number] ####Attendant [employer]: RUTH ANN BRAGG ([phone])[facility] ([facility])[address] [place] [address] [facility] Basophils/100 WBC (Bld) 0.5 % Normal 0.0-2.0 [facility] Comment on above: Performed By: #### L [id number] ####Attendant [employer]: RUTH ANN BRAGG ([phone])[facility] ([facility])[address] Eosinophils (Bld) [#/Vol] 0.4 10*3/uL Normal 0.0-0.5 [facility] Comment on above: Performed By: #### L [id number] ####Attendant [employer]: RUTH ANN HERRONSHELTON ([phone])[facility] ([facility])[address] Eosinophils/100 WBC (Bld) 6.3 % High 0.0-6.0 [facility] Comment on above: Performed By: #### L [id number] ####Attendant [employer]: RUTH ANN BRAGG ([phone])[facility] ([facility])[address] [place] [address] Erythrocyte distribution width (RBC) [Ratio] 14.5 % Normal 11.5-15.0 [facility] Comment on above: Performed By: #### L [id number] ####Attendant [employer]: RUTH ANN BRAGG ([phone])[facility] ([facility])[address] [place] [address] Hematocrit (Bld) [Volume fraction] 25.2 % Low 35.0-47.0 [facility] Comment on above: Performed By: #### L [id number] ####Attendant [employer]: URTH ANN BRAGG ([phone])[facility] ([facility])[address] [place] [address] Hemoglobin (Bld) [Mass/Vol] 7.7 g/dL Low 11.7-16.0 [facility] Comment on above: Performed By: #### L [id number] ####Attendant [employer]: RUTH ANN BRAGG ([phone])[facility] ([facility])[address] IMMATURE GRANS % 0.5 % Normal 0.0-2.0 [facility] Comment on above: Performed By: #### L [id number] ####Attendant [employer]: RUTH ANN BRAGG ([phone])[facility] ([facility])[address] IMMATURE GRANS ABSOLUTE 0.0 10*3/uL Normal <0.1 [facility] Comment on above: Performed By: #### L [id number] ####Attendant [employer]: RUTH ANN BRAGG ([phone])[facility]ALTH[facility] SANDERSOmi ([facility])[address] IPF 3 Normal [facility] Comment on above: Performed By: #### L [id number] ####Attendant [employer]: RUTH ANN BRAGG ([phone])[facility]ALTHRyan [facility]ITAL[facility] ([facility])[address] Lymphocytes (Bld) [#/Vol] 1.4 10*3/uL Normal 1.0-4.3 [facility] Comment on above: Performed By: #### L [id number] ####Attendant [employer]: RUTH ANN BRAGG ([phone])[facility] ([facility])[address] Lymphocytes/100 WBC (Bld) 24.4 % Normal 15.0-45.0 [facility] Comment on above: Performed By: #### L [id number] ####Attendant [employer]: RUTH ANN BRAGG ([phone])[facility] ([facility])[address] [place] [address] MCH (RBC) [Entitic mass] 31.0 pg Normal 26.0-34.0 [facility] Comment on above: Performed By: #### L [id number] ####Attendant [employer]: RUTH ANN BRAGG ([phone])[facility] ([facility])[address] [place] [address] MCHC 30.6 % Normal 30.5-36.0 [facility] Comment on above: Performed By: #### L [id number] ####Attendant [employer]: RUTH ANN BRAGG ([phone])[facility] ([facility])[address] [place] [address] MCV (RBC) [Entitic vol] 101.6 fL High 77.0-99.0 S [facility] Comment on above: Performed By: #### L [id number] ####Attendant Campground: RUTH ANN BRAGG ([phone])[facility] ([facility])[address] Monocytes (Bld) [#/Vol] 1.2 10*3/uL High 0.0-0.9 [facility] Comment on above: Performed By: #### L [id number] ####Attendant Campground: RUTH ANN HERRONSHELTON ([phone])[facility] ([facility])[address] Monocytes/100 WBC (Bld) 20.2 % High 5.0-13.0 S [facility] Comment on above: Performed By: #### L [id number] ####Attendant Campground: RUTH ANN HERRONSHELTON ([phone])[facility] ([facility])[address] NEUTROPHILS ABSOLUTE 2.7 10*3/uL Normal 1.8-7.5 [facility] Comment on above: Performed By: #### L [id number] ####Attendant Campground: RUTH ANN HERRONSHELTON ([phone])[facility] ([facility])[address] Neutrophils/100 WBC (Bld) 48.1 % Normal 38.0-82.0 [facility] Comment on above: Performed By: #### L [id number] ####Attendant Campground: RUTH ANN BRAGG ([phone])[facility] ([facility])[address] [place] [address] [place] NRBC 0.0 /100 WBCs Normal 0.0-2.0 [facility] Comment on above: Performed By: #### L [id number] ####Attendant Campground: RUTH ANN BRAGG ([phone])[facility] ([facility])[address] Platelet mean volume (Bld) [Entitic vol] 10.9 fL Normal 9.0-12.7 [facility] Comment on above: Performed By: #### L [id number] ####Attendant Campground: RUTH ANN BRAGG ([phone])[facility] ([facility])[address] Platelets (Bld) [#/Vol] 94 10*3/uL Low 140-440 S [facility] Comment on above: Performed By: #### L [id number] ####Attendant Campground: RUTH ANN BRAGG ([phone])[facility] ([facility])[address] RBC (Bld) [#/Vol] 2.48 10*6/uL Low 3.80-5.20 [facility] Comment on above: Performed By: #### L [id number] ####Attendant Campground: RUTH ANN BRAGG ([phone])[facility] ([facility])[address] WBC (Bld) [#/Vol] 5.7 10*3/uL Normal 3.6-10.7 [facility] Comment on above: Performed By: #### L [id number] ####Attendant Campground: RUTH ANN BRAGG ([phone])[facility] ([facility])[address] COMPREHENSIVE METABOLIC PANE Smith 07-04-2024 Albumin [Mass/Vol] 2.3 g/dL Low 3.5-5.0 [facility] Comment on above: Performed By: #### L AB113, [id number], LAB17 ####Attendant Campground: RUTH ANN BRAGG ([phone])[facility] ([facility])[address] ALP [Catalytic activity/Vol] 113 U/L Normal 38-126 [facility] Comment on above: Performed By: #### L AB113, ADS183, LAB17 ####Attendant Campground: RUTH ANN BRAGG ([phone])[facility] ([facility])[address] [place] [address] [place] ALT [Catalytic activity/Vol] 28 U/L Normal 0-34 [facility] Comment on above: Performed By: #### L AB113, MPW095, LAB17 ####Attendant Campground: RUTH ANN BRAGG ([phone])[facility] ([facility])[address] Anion gap [Moles/Vol] -1 mmol/L Low 3-13 [facility] Comment on above: Performed By: #### L AB113, GSO247, LAB17 ####Attendant Campground: RUTH ANN BRAGG ([phone])[facility] ([facility])[address] AST [Catalytic activity/Vol] 49 U/L High 15-46 [facility] Comment on above: Performed By: #### L AB113, FLH091, LAB17 ####Attendant Campground: RUTH ANN BRAGG ([phone])[facility] ([facility])[address] Bilirubin [Mass/Vol] 0.6 mg/dL Normal 0.2-1.3 [facility] Comment on above: Performed By: #### L AB113, [id number], LAB17 ####Attendant Campground: RUTH ANN BRAGG ([phone])[facility] ([facility])[address] Calcium [Mass/Vol] 8.4 mg/dL Normal 8.4-10.4 [facility] Comment on above: Performed By: #### L AB113, PNF848, LAB17 ####Attendant Campground: RUTH ANN BRAGG ([phone])[facility] ([facility])[address] [place] [address] [place] Chloride [Moles/Vol] 110 mmol/L High 98-107 [facility] Comment on above: Performed By: #### L AB113, USI039, LAB17 ####Attendant Campground: RUTH ANN BRAGG ([phone])[facility] ([facility])[address] [place] [address] [place] CO2 [Moles/Vol] 28 mmol/L Normal 22-[address] [facility] Comment on above: Performed By: #### L AB113, XWJ063, LAB17 ####Attendant Campground: RUTH ANN BRAGG ([phone])[facility] [place] ([facility])[address] Creatinine [Mass/Vol] 1.22 mg/dL High 0.52-1.04 [facility] Comment on above: Performed By: #### L AB113, [id number], LAB17 ####Attendant Campground: RUTH ANN BRAGG ([phone])[facility] ([facility])[address] GLOMERULAR FILTRATION RATE ML/MIN/1.73 SQ M.PREDICTED 45.5 mL/min/1.73m*2 Low >60.0 [facility] Comment on above: Result Comment: Calc ulation based on the Chronic Kidney Disease Epidemiology Collaboration (CKD-EPI) equation refit without adjustment for race Performed By: #### Jayy ABMara, [id number], LAB17 ####Attendant Campground: RUTH ANN BRAGG ([phone])[facility] ([facility])[address] [place] [address] [place] Glucose [Mass/Vol] 98 mg/dL Normal 70-100 [facility] Comment on above: Performed By: #### Jayy ABMara, [id number], LAB17 ####Attendant Campground: RUTH ANN BRAGG ([phone])[facility] ([facility])[address] [place] [address] [place] Potassium [Moles/Vol] 3.8 mmol/L Normal 3.5-5.1 [facility] Comment on above: Performed By: #### L AB113, PAP202, LAB17 ####Attendant Campground: RUTH ANN BRAGG ([phone])[facility] (SBHLAB)[address] [place] [address] [place] Protein [Mass/Vol] 4.9 g/dL Low 6.3-8.2 [facility] Comment on above: Performed By: #### L AB113, ABA122, LAB17 ####Attendant Campground: RUTH ANN BRAGG ([phone])[facility] ([facility])[address] Sodium [Moles/Vol] 136 mmol/L Normal 135-145 [facility] Comment on above: Performed By: #### L AB113, SKT241, LAB17 ####Attendant Campground: RUTH ANN BRAGG ([phone])[facility] ([facility])[address] Urea nitrogen [Mass/Vol] 20 mg/dL High 02-21 [facility] Comment on above: Performed By: #### L AB113, IPC176, LAB17 ####Attendant Campground: RUTH ANN BRAGG ([phone])[facility] ([facility])[address] Calcium.ionized [Moles/Vol]o n 07-04-2024 Calcium.ionized (Bld) [Moles/Vol] 4.6 mg/dL 4.30 - 5.20 mg/dL [facility] Interpretation and review of laboratory results Abnormal [facility] PH, IONIZED CALCIUM 7.47 High 7.31 - 7.46 [facility] Comprehensive metabolic 1998 panelon 07-04-2024 Albumin [Mass/Vol] 2.3 g/dL Low 3.5 - 5.0 g/dL [facility] ALP [Catalytic activity/Vol] 113 U/L 38 - 126 U/L [facility] ALT [Catalytic activity/Vol] 28 U/L 0 - 34 U/L [facility] Anion gap [Moles/Vol] -1 mmol/L Low 3 - 13 mmol/L [facility] AST [Catalytic activity/Vol] 49 U/L High 15 - 46 U/L [facility] Bilirubin [Mass/Vol] 0.6 mg/dL 0.2 - 1 .3 mg/dL [facility] Calcium [Mass/Vol] 8.4 mg/dL 8.4 - 10. 4 mg/dL [facility] Chloride [Moles/Vol] 110 mmol/L High 98 - 10 7 mmol/L [facility] CO2 [Moles/Vol] 28 mmol/L 22 - 30 mmol/L [facility] Creatinine [Mass/Vol] 1.22 mg/dL High 0.52 - 1.04 mg/dL [facility] GFR/1.73 sq M.predicted (S/P/Bld) [Vol rate/Area] 45.5 mL/min Low - PINF [facility] Glucose [Mass/Vol] 98 mg/dL 70 - 100 mg/dL [facility] Interpretation and review of laboratory results Abnormal [facility] Potassium [Moles/Vol] 3.8 mmol/L 3.5 - 5.1 mmol/L [facility] Protein [Mass/Vol] 4.9 g/dL Low 6.3 - 8.2 g/dL [facility] Sodium [Moles/Vol] 136 mmol/L 135 - 145 mmol/L [facility] Urea nitrogen [Mass/Vol] 20 mg/dL High 7 - 17 mg/dL [facility] Laboratory - Chemistry and C hemistry - challengeon 07-04-2024 Glucose [Mass/Vol] 104 mg/dL High 70 - 100 mg/dL [facility] Magnesium [Mass/Vol] 1.9 mg/dL 1.6 - 2 .3 mg/dL [facility] Ammonia (P) [Moles/Vol] 15 umol/L 9 - 30 umol/L [facility] MAGNESIUMon 07-04-2024 Magnesium [Mass/Vol] 1.9 mg/dL Normal 1.6-2.3 [facility] Comment on above: Performed By: #### L AB113, [id number], LAB17 ####Attendant Campground: RUTH ANN BRAGG ([phone])[facility] [place] [address] No Panel Informationon 07-04 Interpretation and review of laboratory results Abnormal [facility] Interpretation and review of laboratory results Normal [facility] Interpretation and review of laboratory results Normal [facility] PHOSPHORUSon 07-04-2024 Phosphate [Mass/Vol] 3.6 mg/dL Normal 2.5-4.5 [facility] Comment on above: Performed By: #### L AB113, [id number], LAB17 ####Attendant Campground: RUTH ANN BRAGG ([phone])[facility] (SBHLAB)[address] [place] [address] [place] Phosphate [Moles/Vol]on 06-09 Phosphate [Mass/Vol] 3.6 mg/dL 2.5 - 4 .5 mg/dL [facility] Progress Noteon 07-04-2024 Progress Note Normal [facility] 30on 07-03-2024 30 Normal [facility] 30 Normal [facility] [id number] 07-03-2024 [id number] Discussed with primary team attending Dr. Gutierrez today. Patient's condition improving. Patient planned for discharge to SNF. Since patient, family have clearly established goals, our team will sign off at this time. Pricilla Steinberg MD 07/03/24 8:53 PM Normal [facility] [id number] Normal [facility] [id number] Normal [facility] [id number] Normal [facility] [id number] Discharge med list transmitted to [facility] via [facility] per TCC request. [id number] was entered into [facility] for the SNF- FACILITY IS AWARE Normal [facility] [id number] [facility] AMMONIAon 07-03-2024 Ammonia (P) [Moles/Vol] 18 umol/L Normal 9-30 S [facility] Comment on above: Performed By: #### L AB47 ####Attendant Campground: RUTH ANN BRAGG ([phone])[facility] (SBHLAB)[address] [place] [address] [place] CALCIUM, IONIZEDon 4 CALCIUM IONIZED 4.50 mg/dL Normal 4.30-5.[address] [facility] Comment on above: Performed By: #### L AB54 ####Attendant Campground: RUTH ANN BRAGG ([phone])[facility] (SBHLAB)[address] PH, IONIZED CALCIUM 7.46 Normal 7.31-7.46 [facility] Comment on above: Performed By: #### L AB54 ####Attendant Campground: RUTH ANN BRAGG ([phone])[facility] (SB[facility])[address] [place] [address] CBC W Auto Differential pane l (Bld)on 07-03-2024 Basophils (Bld) [#/Vol] 0 10*3/uL 0.0 - 0.2 10*3/uL [facility] Basophils/100 WBC (Bld) 0.4 % 0.0 - 2.0 % [facility] Eosinophils (Bld) [#/Vol] 0.4 10*3/uL 0. 0 - 0.5 10*3/uL [facility] Eosinophils/100 WBC (Bld) 5.7 % 0.0 - 6.0 % [facility] Erythrocyte distribution width (RBC) [Ratio] 14.6 % 11.5 - 15.0 % [facility] Hematocrit (Bld) [Volume fraction] 23.3 % Low 35.0 - 47.0 % [facility] Hemoglobin (Bld) [Mass/Vol] 7.1 g/dL Low 11.7 - 16.0 g/dL [facility] Immature granulocytes (Bld) [#/Vol] 0 10*3/uL NINF - 0.1 10*3/uL [facility] Immature granulocytes/100 WBC (Bld) 0.6 % 0.0 - 2.0 % [facility] Interpretation and review of laboratory results Abnormal [facility] Heal th IPF 3 [facility] Lymphocytes (Bld) [#/Vol] 1.4 10*3/uL 1. 0 - 4.3 10*3/uL [facility] Lymphocytes/100 WBC (Bld) 19.8 % 15 .0 - 45.0 % [facility] MCH (RBC) [Entitic mass] 30.9 pg 26. 0 - 34.0 pg [facility] MCHC (RBC) [Mass/Vol] 30.5 % 30.5 - 36.0 % [facility] MCV (RBC) [Entitic vol] 101.3 fL High 77.0 - 99.0 fL [facility] Monocytes (Bld) [#/Vol] 1.3 10*3/uL High 0.0 - 0.9 10*3/uL [facility] Monocytes/100 WBC (Bld) 18.5 % High 5.0 - 13.0 % [facility] Neutrophils (Bld) [#/Vol] 3.8 10*3/uL 1. 8 - 7.5 10*3/uL [facility] Neutrophils/100 WBC (Bld) 55 % 38 .0 - 82.0 % [facility] Nucleated RBC/100 WBC (Bld) [Ratio] 0 % [facility] Platelet mean volume (Bld) [Entitic vol] 11.5 fL 9.0 - 12.7 fL [facility] Platelets (Bld) [#/Vol] 84 10*3/uL Low 140 - 440 10*3/uL [facility] RBC (Bld) [#/Vol] 2.3 10*6/uL Low 3.80 - 5.2 0 10*6/uL [facility] WBC (Bld) [#/Vol] 6.9 10*3/uL 3.6 - 10.7 10*3/uL [facility] CBC WITH AUTO DIFFERENTIALon 07-03-2024 Basophils (Bld) [#/Vol] 0.0 10*3/uL Normal 0.0-0.2 [facility] Comment on above: Performed By: #### L [id number] ####Attendant Campground: RUTH ANN BRAGG ([phone])[facility] ([facility])[address] Basophils/100 WBC (Bld) 0.4 % Normal 0.0-2.0 S [facility] Comment on above: Performed By: #### L [id number] ####Attendant Campground: RUTH ANN BRAGG ([phone])[facility] ([facility])[address] [place] [address] [place] Eosinophils (Bld) [#/Vol] 0.4 10*3/uL Normal 0.0-0.5 [facility] Comment on above: Performed By: #### L [id number] ####Attendant Campground: RUTH ANN BRAGG ([phone])[facility] ([facility])[address] [place] [address] [place] Eosinophils/100 WBC (Bld) 5.7 % Normal 0.0-6.0 [facility] Comment on above: Performed By: #### L [id number] ####Attendant Campground: RUTH ANN BRAGG ([phone])[facility] Erythrocyte distribution width (RBC) [Ratio] 14.6 % Normal 11.5-15.0 [facility] Comment on above: Performed By: #### L [id number] ####Attendant Campground: RUTH ANN HERRONSHELTON ([phone])[facility] [place] [address] Hematocrit (Bld) [Volume fraction] 23.3 % Low 35.0-47.0 [facility] Comment on above: Performed By: #### L [id number] ####Attendant Campground: RUTH ANN HERRONSHELTON ([phone])[facility] [place] [address] Hemoglobin (Bld) [Mass/Vol] 7.1 g/dL Low 11.7-16.0 [facility] Comment on above: Performed By: #### L [id number] ####Attendant Campground: RUTH ANN BRAGG ([phone])[facility] ([facility])[address] [place] [address] IMMATURE GRANS % 0.6 % Normal 0.0-2.0 [facility] Comment on above: Performed By: #### L [id number] ####Attendant Campground: RUTH ANN HERRONSHELTON ([phone])[facility] IMMATURE GRANS ABSOLUTE 0.0 10*3/uL Normal <0.1 [facility] Comment on above: Performed By: #### L [id number] ####Attendant Campground: RUTH ANN BRAGG ([phone])[facility] ([facility] IPF 3 Normal [facility] Comment on above: Performed By: #### L [id number] ####Attendant Campground: RUTH ANN SABASDavidSHELTON ([phone])[facility] (SBHLAB)[address] Lymphocytes (Bld) [#/Vol] 1.4 10*3/uL Normal 1.0-4.3 [facility] Comment on above: Performed By: #### L [id number] ####Attendant Campground: RUTH ANN YEMI ([phone])[facility] [place] (SBHLAB)[address] Lymphocytes/100 WBC (Bld) 19.8 % Normal 15.0-45.0 [facility] Comment on above: Performed By: #### L [id number] ####Attendant Campground: RUTH ANN YEMI ([phone])[facility] (SB[facility])[address] [place] [address] MCH (RBC) [Entitic mass] 30.9 pg Normal 26.0-34.0 [facility] Comment on above: Performed By: #### L [id number] ####Attendant Campground: RUTH ANN OBREGONDavidSHELTON ([phone])[facility] (SBHL[facility])[address] MCHC 30.5 % Normal 30.5-36.0 [facility] Comment on above: Performed By: #### L [id number] ####Attendant Campground: RUTH ANN BRAGG ([phone])[facility] ([facility])[address] MCV (RBC) [Entitic vol] 101.3 fL High 77.0-99.0 S [facility] Comment on above: Performed By: #### L [id number] ####Attendant Campground: RUTH ANN BRAGG ([phone])[facility] (SBHL[facility])[address] Monocytes (Bld) [#/Vol] 1.3 10*3/uL High 0.0-0.9 [facility] Comment on above: Performed By: #### L [id number] ####Attendant Campground: RUTH ANN BRAGG ([phone])[facility] ([facility])[address] Monocytes/100 WBC (Bld) 18.5 % High 5.0-13.0 S [facility] Comment on above: Performed By: #### L [id number] ####Attendant Campground: RUTH ANN BRAGG ([phone])[facility] ([facility])[address] NEUTROPHILS ABSOLUTE 3.8 10*3/uL Normal 1.8-7.5 [facility] Comment on above: Performed By: #### L [id number] ####Attendant Campground: RUTH ANN BRAGG ([phone])[facility] ([facility])[address] Neutrophils/100 WBC (Bld) 55.0 % Normal 38.0-82.0 [facility] Comment on above: Performed By: #### L [id number] ####Attendant Campground: RUTH ANN BRAGG ([phone])[facility] ([facility])[address] NRBC 0.0 /100 WBCs Normal 0.0-2.0 [facility] Comment on above: Performed By: #### L [id number] ####Attendant Campground: RUTH ANN BRAGG ([phone])[facility] ([facility])[address] Platelet mean volume (Bld) [Entitic vol] 11.5 fL Normal 9.0-12.7 [facility] Comment on above: Performed By: #### L [id number] ####Attendant Campground: RUTH ANN BRAGG ([phone])[facility] ([facility])[address] Platelets (Bld) [#/Vol] 84 10*3/uL Low 140-440 S [facility] Comment on above: Performed By: #### L [id number] ####Attendant Campground: RUTH ANN YEMI ([phone])[facility] [place] ([facility])[address] RBC (Bld) [#/Vol] 2.30 10*6/uL Low 3.80-5.20 [facility] Comment on above: Performed By: #### L [id number] ####Attendant Campground: RUTH ANN OBREGONWILTON ([phone])[facility] [place] ([facility])[address] WBC (Bld) [#/Vol] 6.9 10*3/uL Normal 3.6-10.7 [facility] Comment on above: Performed By: #### L [id number] ####Attendant Campground: RUTH ANN OBREGONWILTON ([phone])[facility] (SB[facility]AB)[address] COMPREHENSIVE METABOLIC PANE Smith 07-03-2024 Albumin [Mass/Vol] 2.1 g/dL Low 3.5-5.0 [facility] Comment on above: Performed By: #### L AB17, FZW093, [id number] ####Attendant Campground: RUTH ANN BRAGG ([phone])[facility] ([facility])[address] ALP [Catalytic activity/Vol] 87 U/L Normal 38-126 [facility] Comment on above: Performed By: #### L AB17, XJU697, EID146 ####Attendant Campground: RUTH ANN BRAGG ([phone])[facility] ([facility])[address] ALT [Catalytic activity/Vol] 27 U/L Normal 0-34 [facility] Comment on above: Performed By: #### L AB17, VLU226, ZHB669 ####Attendant Campground: RUTH ANN BRAGG ([phone])[facility] ([facility])[address] Anion gap [Moles/Vol] -1 mmol/L Low 3-13 [facility] Comment on above: Performed By: #### L AB17, XLW605, SHQ099 ####Attendant Campground: RUTH ANN BRAGG ([phone])[facility] ([facility])[address] AST [Catalytic activity/Vol] 45 U/L Normal 15-46 [facility] Comment on above: Performed By: #### Jayy AB17, JUT720, CHG963 ####Attendant Campground: RUTH ANN BRAGG ([phone])[facility] ([facility])[address] Bilirubin [Mass/Vol] 0.6 mg/dL Normal 0.2-1.3 [facility] Comment on above: Performed By: #### Jayy AB17, MCH263, GME007 ####Attendant Campground: RUTH ANN BRAGG ([phone])[facility] ([facility])[address] Calcium [Mass/Vol] 7.9 mg/dL Low 8.4-10.4 [facility] Comment on above: Performed By: #### Jayy HAND, [id number], JHC245 ####Attendant Campground: RUTH ANN BRAGG ([phone])[facility] ([facility])[address] Chloride [Moles/Vol] 111 mmol/L High 98-107 [facility] Comment on above: Performed By: #### Jayy HAND, LKS311, PMS556 ####Attendant Campground: RUTH ANN BRAGG ([phone])[facility] ([facility])[address] [place] [address] [place] CO2 [Moles/Vol] 26 mmol/L Normal 22-30 [facility] Comment on above: Performed By: #### L AB17, PAW524, UIQ062 ####Attendant Campground: RUTH ANN BRAGG ([phone])[facility] ([facility])[address] [place] [address] [place] Creatinine [Mass/Vol] 1.14 mg/dL High 0.52-1.04 [facility] Comment on above: Performed By: #### L AB17, CCW277, TCQ452 ####Attendant Campground: RUTH ANN BRAGG ([phone])[facility] ([facility] GLOMERULAR FILTRATION RATE ML/MIN/1.73 SQ M.PREDICTED 49.4 mL/min/1.73m*2 Low >60.0 [facility] Comment on above: Result Comment: Calc ulation based on the Chronic Kidney Disease Epidemiology Collaboration (CKD-EPI) equation refit without adjustment for race Performed By: #### Jayy [id number], [id number], [id number] ####Attendant Campground: RUTH ANN BRAGG ([phone])[facility] ([facility])[address] [place] [address] Glucose [Mass/Vol] 106 mg/dL High 70-100 [facility] Comment on above: Performed By: #### Jayy ALLRED17, [id number], [id number] ####Attendant Campground: RUTH ANN BRAGG ([phone])[facility] ([facility])[address] [place] [address] Potassium [Moles/Vol] 3.9 mmol/L Normal 3.5-5.1 [facility] Comment on above: Performed By: #### Jayy ALLRED17, [id number], [id number] ####Attendant Campground: RUTH ANN BRAGG ([phone])[facility] ([facility])[address] Protein [Mass/Vol] 4.6 g/dL Low 6.3-8.2 [facility] Comment on above: Performed By: #### L AB17, [id number], [id number] ####Attendant [place]ground: RUTH ANN BRAGG ([phone])[facility] ([facility])[address] Sodium [Moles/Vol] 136 mmol/L Normal 135-145 [facility] Comment on above: Performed By: #### L AB17, [id number], [id number] ####Attendant Campground: RUTH ANN BRAGG ([phone])[facility] ([facility])[address] Urea nitrogen [Mass/Vol] 25 mg/dL High 02-21 [facility] Comment on above: Performed By: #### L AB17, [id number], [id number] ####Attendant Campground: RUTH ANN BRAGG ([phone])[facility] ([facility])[address] Calcium.ionized [Moles/Vol]o n 07-03-2024 Calcium.ionized (Bld) [Moles/Vol] 4.5 mg/dL 4.30 - 5.20 mg/dL [facility] Interpretation and review of laboratory results Normal [facility] PH, IONIZED CALCIUM 7.46 7.31 - 7.46 [facility] Comprehensive metabolic 1998 panelon 07-03-2024 Albumin [Mass/Vol] 2.1 g/dL Low 3.5 - 5.0 g/dL [facility] ALP [Catalytic activity/Vol] 87 U/L 38 - 126 U/L [facility] ALT [Catalytic activity/Vol] 27 U/L 0 - 34 U/L [facility] Anion gap [Moles/Vol] -1 mmol/L Low 3 - 13 mmol/L [facility] AST [Catalytic activity/Vol] 45 U/L 15 - 46 U/L [facility] Bilirubin [Mass/Vol] 0.6 mg/dL 0.2 - 1 .3 mg/dL [facility] Calcium [Mass/Vol] 7.9 mg/dL Low 8.4 - 10. 4 mg/dL [facility] Chloride [Moles/Vol] 111 mmol/L High 98 - 10 7 mmol/L [facility] CO2 [Moles/Vol] 26 mmol/L 22 - 30 mmol/L [facility] Creatinine [Mass/Vol] 1.14 mg/dL High 0.52 - 1.04 mg/dL [facility] GFR/1.73 sq M.predicted (S/P/Bld) [Vol rate/Area] 49.4 mL/min Low - PINF [facility] Glucose [Mass/Vol] 106 mg/dL High 70 - 100 mg/dL [facility] Interpretation and review of laboratory results Abnormal [facility] Potassium [Moles/Vol] 3.9 mmol/L 3.5 - 5.1 mmol/L [facility] Protein [Mass/Vol] 4.6 g/dL Low 6.3 - 8.2 g/dL [facility] Sodium [Moles/Vol] 136 mmol/L 135 - 145 mmol/L [facility] Urea nitrogen [Mass/Vol] 25 mg/dL High 7 - 17 mg/dL [facility] Laboratory - Chemistry and C hemistry - challengeon 07-03-2024 Glucose [Mass/Vol] 205 mg/dL High 70 - 100 mg/dL [facility] Glucose [Mass/Vol] 210 mg/dL High 70 - 100 mg/dL [facility] Glucose [Mass/Vol] 177 mg/dL High 70 - 100 mg/dL [facility] Glucose [Mass/Vol] 173 mg/dL High 70 - 100 mg/dL [facility] Glucose [Mass/Vol] 105 mg/dL High 70 - 100 mg/dL [facility] Magnesium [Mass/Vol] 1.9 mg/dL 1.6 - 2 .3 mg/dL [facility] Ammonia (P) [Moles/Vol] 18 umol/L 9 - 30 umol/L [facility] MAGNESIUMon 07-03-2024 Magnesium [Mass/Vol] 1.9 mg/dL Normal 1.6-2.3 [facility] Comment on above: Performed By: #### L AB17, [id number], [id number] ####Attendant Campground: RUTH ANN BRAGG ([phone])[facility] ([facility])[address] [place] [address] No Panel Informationon 07-03 Interpretation and review of laboratory results Abnormal [facility] Interpretation and review of laboratory results Abnormal [facility] Interpretation and review of laboratory results Abnormal [facility] Interpretation and review of laboratory results Abnormal [facility] Interpretation and review of laboratory results Abnormal [facility] Interpretation and review of laboratory results Normal [facility] Interpretation and review of laboratory results Normal [facility] Nursing Noteon 11-26-2024 Nursing Note Report called to [facility]. Pt transport is scheduled for 2:30pm. Normal [facility] PHOSPHORUSon 07-03-2024 Phosphate [Mass/Vol] 3.0 mg/dL Normal 2.5-4.5 [facility] Comment on above: Performed By: #### L AB17, [id number], [id number] ####Attendant Campground: RUTH ANN BRAGG ([phone])[facility] [place] [address] [place] Phosphate [Moles/Vol]on 06-09 Phosphate [Mass/Vol] 3 mg/dL 2.5 - 4 .5 mg/dL [facility] Progress Noteon 07-03-2024 Progress Note Normal [facility] Progress Note Normal [facility] Progress Note Normal [facility] 30on 07-02-2024 30 Normal [facility] [id number] 07-02-2024 [id number] Normal [facility] [id number] [facility] [id number] Sent therapy notes to [facility] via [employer] per TCC request. Await review and response regarding ability to accept. TCC notified. Normal [facility] [id number] [facility] AMMONIAon 07-02-2024 Ammonia (P) [Moles/Vol] 14 umol/L Normal 9-30 S [facility] Comment on above: Performed By: #### L AB47 ####Attendant Campground: RUTH ANN BRAGG ([phone])[facility] ([place])[address] [place] [address] [place] CALCIUM, IONIZEDon CALCIUM IONIZED 4.30 mg/dL Normal 4.30-5.[address] [facility] Comment on above: Performed By: #### L AB54 ####Attendant Campground: RUTH ANN BRAGG ([phone])[facility] PH, IONIZED CALCIUM 7.56 High 7.31-7.46 [facility] Comment on above: Performed By: #### L AB54 ####Attendant Campground: RUTH ANN BRAGG ([phone])[facility] ([facility])[address] [place] [address] CBC W Auto Differential pane l (Bld)on 07-02-2024 Basophils (Bld) [#/Vol] 0 10*3/uL 0.0 - 0.2 10*3/uL [facility] Basophils/100 WBC (Bld) 0.4 % 0.0 - 2.0 % [facility] Eosinophils (Bld) [#/Vol] 0.5 10*3/uL 0. 0 - 0.5 10*3/uL [facility] Eosinophils/100 WBC (Bld) 6.3 % High 0.0 - 6.0 % [facility] Erythrocyte distribution width (RBC) [Ratio] 14.6 % 11.5 - 15.0 % [facility] Hematocrit (Bld) [Volume fraction] 24.2 % Low 35.0 - 47.0 % [facility] Hemoglobin (Bld) [Mass/Vol] 7.6 g/dL Low 11.7 - 16.0 g/dL [facility] Immature granulocytes (Bld) [#/Vol] 0 10*3/uL NINF - 0.1 10*3/uL [facility] Immature granulocytes/100 WBC (Bld) 0.5 % 0.0 - 2.0 % [facility] Interpretation and review of laboratory results Abnormal [facility] IPF 4 [facility] Lymphocytes (Bld) [#/Vol] 1.2 10*3/uL 1. 0 - 4.3 10*3/uL [facility] Lymphocytes/100 WBC (Bld) 16.7 % 15 .0 - 45.0 % [facility] MCH (RBC) [Entitic mass] 31.5 pg 26. 0 - 34.0 pg [facility] MCHC (RBC) [Mass/Vol] 31.4 % 30.5 - 36.0 % [facility] MCV (RBC) [Entitic vol] 100.4 fL High 77.0 - 99.0 fL [facility] Monocytes (Bld) [#/Vol] 1.3 10*3/uL High 0.0 - 0.9 10*3/uL [facility] Monocytes/100 WBC (Bld) 17.3 % High 5.0 - 13.0 % [facility] Neutrophils (Bld) [#/Vol] 4.3 10*3/uL 1. 8 - 7.5 10*3/uL [facility] Neutrophils/100 WBC (Bld) 58.8 % 38 .0 - 82.0 % [facility] Nucleated RBC/100 WBC (Bld) [Ratio] 0 % [facility] Platelet mean volume (Bld) [Entitic vol] 11.3 fL 9.0 - 12.7 fL [facility] Platelets (Bld) [#/Vol] 84 10*3/uL Low 140 - 440 10*3/uL [facility] RBC (Bld) [#/Vol] 2.41 10*6/uL Low 3.80 - 5.2 0 10*6/uL [facility] WBC (Bld) [#/Vol] 7.3 10*3/uL 3.6 - 10.7 10*3/uL [facility] CBC WITH AUTO DIFFERENTIALon 07-02-2024 Basophils (Bld) [#/Vol] 0.0 10*3/uL Normal 0.0-0.2 [facility] Comment on above: Performed By: #### L [id number] ####Attendant Campground: RUTH ANN BRAGG ([phone])[facility] ([facility])[address] [place] [address] Basophils/100 WBC (Bld) 0.4 % Normal 0.0-2.0 S [facility] Comment on above: Performed By: #### L [id number] ####Attendant Campground: RUTH ANN BRAGG ([phone])[facility] ([facility])[address] Eosinophils (Bld) [#/Vol] 0.5 10*3/uL Normal 0.0-0.5 [facility] Comment on above: Performed By: #### L [id number] ####Attendant Campground: RUTH ANN BRAGG ([phone])[facility] ([facility])[address] Eosinophils/100 WBC (Bld) 6.3 % High 0.0-6.0 [facility] Comment on above: Performed By: #### L [id number] ####Attendant Campground: RUTH ANN BRAGG ([phone])[facility] ([facility])[address] Erythrocyte distribution width (RBC) [Ratio] 14.6 % Normal 11.5-15.0 [facility] Comment on above: Performed By: #### L [id number] ####Attendant Campground: RUTH ANN BRAGG ([phone])[facility] ([facility])[address] Hematocrit (Bld) [Volume fraction] 24.2 % Low 35.0-47.0 [facility] Comment on above: Performed By: #### L [id number] ####Attendant Campground: RUTH ANN BRAGG ([phone])[facility] ([facility])[address] Hemoglobin (Bld) [Mass/Vol] 7.6 g/dL Low 11.7-16.0 [facility] Comment on above: Performed By: #### L [id number] ####Attendant Campground: RUTH ANN BRAGG ([phone])[facility] ([facility])[address] [place] [address] IMMATURE GRANS % 0.5 % Normal 0.0-2.0 [facility] Comment on above: Performed By: #### L [id number] ####Attendant Campground: RUTH ANN BRAGG ([phone])[facility] ([facility])[address] IMMATURE GRANS ABSOLUTE 0.0 10*3/uL Normal <0.1 [facility] Comment on above: Performed By: #### L [id number] ####Attendant Campground: RUTH ANN BRAGG ([phone])[facility] ([facility])[address] IPF 4 Normal [facility] Comment on above: Performed By: #### L [id number] ####Attendant Campground: RUTH ANN BRAGG ([phone])[facility] ([facility])[address] Lymphocytes (Bld) [#/Vol] 1.2 10*3/uL Normal 1.0-4.3 [facility] Comment on above: Performed By: #### L [id number] ####Attendant Campground: RUTH ANN BRAGG ([phone])[facility] ([facility])[address] Lymphocytes/100 WBC (Bld) 16.7 % Normal 15.0-45.0 [facility] Comment on above: Performed By: #### L [id number] ####Attendant Campground: RUTH ANN BRAGG ([phone])[facility] ([facility])[address] MCH (RBC) [Entitic mass] 31.5 pg Normal 26.0-34.0 [facility] Comment on above: Performed By: #### L [id number] ####Attendant Campground: RUTH ANN BRAGG ([phone])[facility] ([facility])[address] MCHC 31.4 % Normal 30.5-36.0 [facility] Comment on above: Performed By: #### L [id number] ####Attendant Campground: RUTH ANN BRAGG ([phone])[facility] ([facility])[address] MCV (RBC) [Entitic vol] 100.4 fL High 77.0-99.0 S [facility] Comment on above: Performed By: #### L [id number] ####Attendant Campground: RUTH ANN BRAGG ([phone])[facility] ([facility])[address] Monocytes (Bld) [#/Vol] 1.3 10*3/uL High 0.0-0.9 [facility] Comment on above: Performed By: #### L [id number] ####Attendant Campground: RUTH ANN BRAGG ([phone])[facility] ([facility])[address] Monocytes/100 WBC (Bld) 17.3 % High 5.0-13.0 S [facility] Comment on above: Performed By: #### L [id number] ####Attendant Campground: RUTH ANN BRAGG ([phone])[facility] [place] ([facility])[address] NEUTROPHILS ABSOLUTE 4.3 10*3/uL Normal 1.8-7.5 [facility] Comment on above: Performed By: #### L [id number] ####Attendant Campground: RUTH ANN BRAGG ([phone])[facility] ([facility])[address] Neutrophils/100 WBC (Bld) 58.8 % Normal 38.0-82.0 [facility] Comment on above: Performed By: #### L [id number] ####Attendant Campground: RUTH ANN BRAGG ([phone])[facility] ([facility])[address] NRBC 0.0 /100 WBCs Normal 0.0-2.0 [facility] Comment on above: Performed By: #### L [id number] ####Attendant Campground: RUTH ANN BRAGG ([phone])[facility] [place] ([facility])[address] Platelet mean volume (Bld) [Entitic vol] 11.3 fL Normal 9.0-12.7 [facility] Comment on above: Performed By: #### L [id number] ####Attendant Campground: RUTH ANN BRAGG ([phone])[facility] ([facility])[address] Platelets (Bld) [#/Vol] 84 10*3/uL Low 140-440 S [facility] Comment on above: Performed By: #### L [id number] ####Attendant Campground: RUTH ANN BRAGG ([phone])[facility] [place] ([place])[address] RBC (Bld) [#/Vol] 2.41 10*6/uL Low 3.80-5.20 [facility] Comment on above: Performed By: #### L [id number] ####Attendant Campground: RUTH ANN BRAGG ([phone])[facility] [place] ([facility])[address] WBC (Bld) [#/Vol] 7.3 10*3/uL Normal 3.6-10.7 [facility] Comment on above: Performed By: #### L [id number] ####Attendant Campground: RUTH ANN BRAGG ([phone])[facility] [place] ([facility])[address] COMPREHENSIVE METABOLIC PANE Smith 07-02-2024 Albumin [Mass/Vol] 2.4 g/dL Low 3.5-5.0 [facility] Comment on above: Performed By: #### L ABMara, [id number], LAB17 ####Attendant Campground: RUTH ANN BRAGG ([phone])[facility] [place] ([facility])[address] ALP [Catalytic activity/Vol] 89 U/L Normal 38-126 [facility] Comment on above: Performed By: #### L ABMara, [id number], LAB17 ####Attendant Campground: RUTH ANN BRAGG ([phone])[facility] [place] ([facility])[address] ALT [Catalytic activity/Vol] 29 U/L Normal 0-34 [facility] Comment on above: Performed By: #### L [id number], [id number], LAB17 ####Attendant Campground: RUTH ANN BRAGG ([phone])[facility] [place] ([facility])[address] Anion gap [Moles/Vol] 0 mmol/L Low 3-13 [facility] Comment on above: Performed By: #### Jayy ABMara, [id number], LAB17 ####Attendant Campground: RUTH ANN BRAGG ([phone])[facility] [place] ([facility])[address] AST [Catalytic activity/Vol] 50 U/L High 15-46 [facility] Comment on above: Performed By: #### Jayy ABMara, [id number], LAB17 ####Attendant Campground: RUTH ANN BRAGG ([phone])[facility] ([facility])[address] Bilirubin [Mass/Vol] 0.8 mg/dL Normal 0.2-1.3 [facility] Comment on above: Performed By: #### Jayy ABMara, [id number], LAB17 ####Attendant Campground: RUTH ANN BRAGG ([phone])[facility] ([facility])[address] Calcium [Mass/Vol] 8.0 mg/dL Low 8.4-10.4 [facility] Comment on above: Performed By: #### Jayy PLAZA, [id number], LAB17 ####Attendant Campground: RUTH ANN BRAGG ([phone])[facility] [place] ([facility])[address] Chloride [Moles/Vol] 110 mmol/L High 98-107 [facility] Comment on above: Performed By: #### Jayy ABMara, [id number], LAB17 ####Attendant Campground: RUTH ANN BRAGG ([phone])[facility] [place] ([facility])[address] [place] [address] [place] CO2 [Moles/Vol] 25 mmol/L Normal 22-30 [facility] Comment on above: Performed By: #### L ABMara, [id number], LAB17 ####Attendant Campground: RUTH ANN BRAGG ([phone])[facility] ([facility])[address] [place] [address] [place] Creatinine [Mass/Vol] 1.11 mg/dL High 0.52-1.04 [facility] Comment on above: Performed By: #### L AB113, [id number], LAB17 ####Attendant Campground: RUTH ANN BRAGG ([phone])[facility] ([place])[address] GLOMERULAR FILTRATION RATE ML/MIN/1.73 SQ M.PREDICTED 51.0 mL/min/1.73m*2 Low >60.0 [facility] Comment on above: Result Comment: Calc ulation based on the Chronic Kidney Disease Epidemiology Collaboration (CKD-EPI) equation refit without adjustment for race Performed By: #### L ABMara, [id number], LAB17 ####Attendant Campground: RUTH ANN BRAGG ([phone])[facility] ([facility])[address] [place] [address] Glucose [Mass/Vol] 113 mg/dL High 70-100 [facility] Comment on above: Performed By: #### Jayy ABMara, [id number], LAB17 ####Attendant Campground: RUTH ANN BRAGG ([phone])[facility] ([place])[address] Potassium [Moles/Vol] 3.9 mmol/L Normal 3.5-5.1 [facility] Comment on above: Performed By: #### Jayy PLAZA, [id number], LAB17 ####Attendant Campground: RUTH ANN BRAGG ([phone])[facility] ([place])[address] Protein [Mass/Vol] 5.0 g/dL Low 6.3-8.2 [facility] Comment on above: Performed By: #### L AB113, [id number], LAB17 ####Attendant Campground: RUTH ANN BRAGG ([phone])[facility] ([place])[address] Sodium [Moles/Vol] 135 mmol/L Normal 135-145 [facility] Comment on above: Performed By: #### L AB113, [id number], LAB17 ####Attendant Campground: RUTH ANN BRAGG ([phone])[facility] ([place])[address] Urea nitrogen [Mass/Vol] 29 mg/dL High 02-21 [facility] Comment on above: Performed By: #### L AB113, [id number], LAB17 ####Attendant Campground: RUTH ANN BRAGG ([phone])[facility] ([place])[address] Calcium.ionized [Moles/Vol]o n 07-02-2024 Calcium.ionized (Bld) [Moles/Vol] 4.3 mg/dL 4.30 - 5.20 mg/dL [facility] Interpretation and review of laboratory results Abnormal [facility] PH, IONIZED CALCIUM 7.56 High 7.31 - 7.46 [facility] Comprehensive metabolic 1998 panelon 07-02-2024 Albumin [Mass/Vol] 2.4 g/dL Low 3.5 - 5.0 g/dL [facility] ALP [Catalytic activity/Vol] 89 U/L 38 - 126 U/L [facility] ALT [Catalytic activity/Vol] 29 U/L 0 - 34 U/L [facility] Anion gap [Moles/Vol] 0 mmol/L Low 3 - 13 mmol/L [facility] AST [Catalytic activity/Vol] 50 U/L High 15 - 46 U/L [facility] Bilirubin [Mass/Vol] 0.8 mg/dL 0.2 - 1 .3 mg/dL [facility] Calcium [Mass/Vol] 8 mg/dL Low 8.4 - 10. 4 mg/dL [facility] Chloride [Moles/Vol] 110 mmol/L High 98 - 10 7 mmol/L [facility] CO2 [Moles/Vol] 25 mmol/L 22 - 30 mmol/L [facility] Creatinine [Mass/Vol] 1.11 mg/dL High 0.52 - 1.04 mg/dL [facility] GFR/1.73 sq M.predicted (S/P/Bld) [Vol rate/Area] 51 mL/min Low - PINF [facility] Glucose [Mass/Vol] 113 mg/dL High 70 - 100 mg/dL [facility] Interpretation and review of laboratory results Abnormal [facility] Potassium [Moles/Vol] 3.9 mmol/L 3.5 - 5.1 mmol/L [facility] Protein [Mass/Vol] 5 g/dL Low 6.3 - 8.2 g/dL [facility] Sodium [Moles/Vol] 135 mmol/L 135 - 145 mmol/L [facility] Urea nitrogen [Mass/Vol] 29 mg/dL High 7 - 17 mg/dL [facility] Laboratory - Chemistry and C hemistry - challengeon 07-02-2024 Glucose [Mass/Vol] 179 mg/dL High 70 - 100 mg/dL [facility] Glucose [Mass/Vol] 219 mg/dL High 70 - 100 mg/dL [facility] Glucose [Mass/Vol] 184 mg/dL High 70 - 100 mg/dL [facility] Glucose [Mass/Vol] 118 mg/dL High 70 - 100 mg/dL [facility] Ammonia (P) [Moles/Vol] 14 umol/L 9 - 30 umol/L [facility] Magnesium [Mass/Vol] 1.9 mg/dL 1.6 - 2 .3 mg/dL [facility] MAGNESIUMon 07-02-2024 Magnesium [Mass/Vol] 1.9 mg/dL Normal 1.6-2.3 [facility] Comment on above: Performed By: #### L AB113, [id number], LAB17 ####Attendant Campground: RUTH ANN BRAGG ([phone])[facility] ([facility])[address] [place] [address] No Panel Informationon 07-02 Interpretation and review of laboratory results Abnormal [facility] Interpretation and review of laboratory results Abnormal [facility] Interpretation and review of laboratory results Abnormal [facility] Interpretation and review of laboratory results Abnormal [facility] Interpretation and review of laboratory results Normal [facility] Interpretation and review of laboratory results Normal [facility] Nursing Noteon 07-02-2024 Nursing Note Patient was informed that her catheter needed to be removed per Doctors order. Patient currently has family visiting and is eating dinner and would like to wait until later. Patient was asked to call the nurse when she was ready for it to be removed. Normal [facility] PHOSPHORUSon 07-02-2024 Phosphate [Mass/Vol] 2.9 mg/dL Normal 2.5-4.5 [facility] Comment on above: Performed By: #### L AB113, [id number], LAB17 ####Attendant Campground: RUTH ANN BRAGG ([phone])[facility])[address] Phosphate [Moles/Vol]on 06-09 Phosphate [Mass/Vol] 2.9 mg/dL 2.5 - 4 .5 mg/dL [facility] Progress Noteon 07-02-2024 Progress Note [facility] Progress Note Normal [facility] Normal [facility] Progress Note Normal [facility] Progress Note Normal [facility] AMMONIAon 07-01-2024 Ammonia (P) [Moles/Vol] 46 umol/L High 9-30 S [facility] Comment on above: Performed By: #### L AB47 ####Attendant Campground: RUTH ANN BRAGG ([phone])[facility] ([facility])[address] CALCIUM, IONIZEDon 4 CALCIUM IONIZED 4.60 mg/dL Normal 4.30-5.[address] [facility] Comment on above: Performed By: #### L AB54 ####Attendant Campground: RUTH ANN BRAGG ([phone])[facility] [facility] [place] [address] PH, IONIZED CALCIUM 7.46 Normal 7.31-7.46 [facility] Comment on above: Performed By: #### L [id number] ####Attendant Campground: RUTH ANN BRAGG ([phone])[facility] ([facility] CBC W Auto Differential pane l (Bld)Ordered By: Kathya Dotson on 07-01-2024 Basophils (Bld) [#/Vol] 0 10*3/uL 0.0 - 0.2 10*3/uL [facility] Basophils/100 WBC (Bld) 0.4 % 0.0 - 2.0 % [facility] Eosinophils (Bld) [#/Vol] 0.6 10*3/uL High 0. 0 - 0.5 10*3/uL [facility] Eosinophils/100 WBC (Bld) 7.2 % High 0.0 - 6.0 % [facility] Erythrocyte distribution width (RBC) [Ratio] 14.9 % 11.5 - 15.0 % [facility] Hematocrit (Bld) [Volume fraction] 25.8 % Low 35.0 - 47.0 % [facility] Hemoglobin (Bld) [Mass/Vol] 7.9 g/dL Low 11.7 - 16.0 g/dL [facility] Immature granulocytes (Bld) [#/Vol] 0.1 10*3/uL High NINF - 0.1 10*3/uL [facility] Immature granulocytes/100 WBC (Bld) 0.8 % 0.0 - 2.0 % [facility] Interpretation and review of laboratory results Abnormal [facility] th Lymphocytes (Bld) [#/Vol] 1.4 10*3/uL 1. 0 - 4.3 10*3/uL [facility] Lymphocytes/100 WBC (Bld) 18.4 % 15 .0 - 45.0 % [facility] MCH (RBC) [Entitic mass] 31.5 pg 26. 0 - 34.0 pg [facility] MCHC (RBC) [Mass/Vol] 30.6 % 30.5 - 36.0 % [facility] MCV (RBC) [Entitic vol] 102.8 fL High 77.0 - 99.0 fL [facility] Monocytes (Bld) [#/Vol] 1.2 10*3/uL High 0.0 - 0.9 10*3/uL [facility] Monocytes/100 WBC (Bld) 15 % High 5.0 - 13.0 % [facility] Neutrophils (Bld) [#/Vol] 4.5 10*3/uL 1. 8 - 7.5 10*3/uL [facility] Neutrophils/100 WBC (Bld) 58.2 % 38 .0 - 82.0 % [facility] Nucleated RBC/100 WBC (Bld) [Ratio] 0 % [facility] Platelet mean volume (Bld) [Entitic vol] 11.4 fL 9.0 - 12.7 fL [facility] Platelets (Bld) [#/Vol] 86 10*3/uL Low 140 - 440 10*3/uL [facility] RBC (Bld) [#/Vol] 2.51 10*6/uL Low 3.80 - 5.2 0 10*6/uL [facility] WBC (Bld) [#/Vol] 7.7 10*3/uL 3.6 - 10.7 10*3/uL [facility] CBC WITH AUTO DIFFERENTIALon 07-01-2024 Basophils (Bld) [#/Vol] 0.0 10*3/uL Normal 0.0-0.2 [facility] Comment on above: Performed By: #### L [id number] ####Attendant Campground: RUTH ANN BRAGG ([phone])[facility] ([facility] [place] [address] Basophils/100 WBC (Bld) 0.4 % Normal 0.0-2.0 [facility] Comment on above: Performed By: #### L [id number] ####Attendant Campground: RUTH ANN BRAGG ([phone])[facility] ([facility])[address] [place] [address] Eosinophils (Bld) [#/Vol] 0.6 10*3/uL High 0.0-0.5 [facility] Comment on above: Performed By: #### L [id number] ####Attendant Campground: RUTH ANN BRAGG ([phone])[facility] ([facility])[address] Eosinophils/100 WBC (Bld) 7.2 % High 0.0-6.0 [facility] Comment on above: Performed By: #### L [id number] ####Attendant Campground: RUTH ANN BRAGG ([phone])[facility] (SBAB)[address] Erythrocyte distribution width (RBC) [Ratio] 14.9 % Normal 11.5-15.0 [facility] Comment on above: Performed By: #### L [id number] ####Attendant Campground: RUTH ANN OBREGONDavidSHELTON ([phone])[facility] (SBHLAB)[address] Hematocrit (Bld) [Volume fraction] 25.8 % Low 35.0-47.0 [facility] Comment on above: Performed By: #### L [id number] ####Attendant Campground: RUTH ANN YEMI ([phone])[facility] (SBHLAB)[address] Hemoglobin (Bld) [Mass/Vol] 7.9 g/dL Low 11.7-16.0 [facility] Comment on above: Performed By: #### L [id number] ####Attendant Campground: RUTH ANN OBREGONWILTON ([phone])[facility] (SBHLAB)[address] IMMATURE GRANS % 0.8 % Normal 0.0-2.0 [facility] Comment on above: Performed By: #### L [id number] ####Attendant Campground: RUTH ANN YEMI ([phone])[facility] (SBHLAB)[address] IMMATURE GRANS ABSOLUTE 0.1 10*3/uL High <0.1 [facility] Comment on above: Performed By: #### L [id number] ####Attendant Campground: RUTH ANN HERRONHSELTON ([phone])[facility] (SBHLAB)[address] Lymphocytes (Bld) [#/Vol] 1.4 10*3/uL Normal 1.0-4.3 [facility] Comment on above: Performed By: #### L [id number] ####Attendant Campground: RUTH ANN HERRONSHELTON ([phone])[facility] (SBHLAB)[address] Lymphocytes/100 WBC (Bld) 18.4 % Normal 15.0-45.0 [facility] Comment on above: Performed By: #### L [id number] ####Attendant Campground: RUTH ANN BRAGG ([phone])[facility] (SBHLAB)[address] MCH (RBC) [Entitic mass] 31.5 pg Normal 26.0-34.0 [facility] Comment on above: Performed By: #### L [id number] ####Attendant Campground: RUTH ANN BRAGG ([phone])[facility] (SB[facility])[address] MCHC 30.6 % Normal 30.5-36.0 [facility] Comment on above: Performed By: #### L [id number] ####Attendant Campground: RUTH ANN BRAGG ([phone])[facility] (SBHLAB)[address] MCV (RBC) [Entitic vol] 102.8 fL High 77.0-99.0 [facility] Comment on above: Performed By: #### L [id number] ####Attendant Campground: RUTH ANN BRAGG ([phone])[facility] (SBHLAB)[address] [place] [address] Monocytes (Bld) [#/Vol] 1.2 10*3/uL High 0.0-0.9 [facility] Comment on above: Performed By: #### L [id number] ####Attendant Campground: RUTH ANN BRAGG ([phone])[facility] (SBHLAB)[address] [place] [address] [place] Monocytes/100 WBC (Bld) 15.0 % High 5.0-13.0 [facility] Comment on above: Performed By: #### L [id number] ####Attendant Campground: RUTH ANN BRAGG ([phone])[facility] (SBHLAB)[address] NEUTROPHILS ABSOLUTE 4.5 10*3/uL Normal 1.8-7.5 [facility] Comment on above: Performed By: #### L [id number] ####Attendant Campground: RUTH ANN BRAGG ([phone])[facility] (SBHL[facility])[address] Neutrophils/100 WBC (Bld) 58.2 % Normal 38.0-82.0 [facility] Comment on above: Performed By: #### L [id number] ####Attendant Campground: RUTH ANN BRAGG ([phone])[facility] (SBHL[facility])[address] NRBC 0.0 /100 WBCs Normal 0.0-2.0 [facility] Comment on above: Performed By: #### L [id number] ####Attendant Campground: RUTH ANN BRAGG ([phone])[facility] (SBHL[facility])[address] Platelet mean volume (Bld) [Entitic vol] 11.4 fL Normal 9.0-12.7 [facility] Comment on above: Performed By: #### L [id number] ####Attendant Campground: RUTH ANN BRAGG ([phone])[facility] (SBHL[facility])[address] Platelets (Bld) [#/Vol] 86 10*3/uL Low 140-440 S [facility] Comment on above: Performed By: #### L [id number] ####Attendant Campground: RUTH ANN BRAGG ([phone])[facility] (SBHL[facility])[address] [place] [address] RBC (Bld) [#/Vol] 2.51 10*6/uL Low 3.80-5.20 [facility] Comment on above: Performed By: #### L [id number] ####Attendant Campground: RUTH ANN BRAGG ([phone])[facility] (SBHLAB)[address] [place] [address] [place] WBC (Bld) [#/Vol] 7.7 10*3/uL Normal 3.6-10.7 [facility] Comment on above: Performed By: #### L [id number] ####Attendant Campground: RUTH ANN BRAGG ([phone])[facility] (SBHLAB)[address] COMPREHENSIVE METABOLIC PANE Smith 07-01-2024 Albumin [Mass/Vol] 2.3 g/dL Low 3.5-5.0 [facility] Comment on above: Performed By: #### L AB113, LAB17, [id number] ####Attendant Campground: RUTH NAN BRAGG ([phone])[facility] (SBHL[facility])[address] ALP [Catalytic activity/Vol] 93 U/L Normal 38-126 [facility] Comment on above: Performed By: #### L AB113, LAB17, [id number] ####Attendant Campground: RUTH ANN BRAGG ([phone])[facility] ([facility])[address] ALT [Catalytic activity/Vol] 28 U/L Normal 0-34 [facility] Comment on above: Performed By: #### L AB113, LAB17, [id number] ####Attendant Campground: RUTH ANN BRAGG ([phone])[facility] (SBHL[facility])[address] Anion gap [Moles/Vol] 2 mmol/L Low 3-13 [facility] Comment on above: Performed By: #### L AB113, LAB17, [id number] ####Attendant Campground: RUTH ANN BRAGG ([phone])[facility] (SBHL[facility])[address] AST [Catalytic activity/Vol] 51 U/L High 15-46 [facility] Comment on above: Performed By: #### L AB113, LAB17, [id number] ####Attendant Campground: RUTH ANN BRAGG ([phone])[facility] (SBHL[facility])[address] [place] [address] [place] Bilirubin [Mass/Vol] 0.7 mg/dL Normal 0.2-1.3 [facility] Comment on above: Performed By: #### L AB113, LAB17, SBG159 ####Attendant Campground: RUTH ANN BRAGG ([phone])[facility] (SBHLAB)[address] Calcium [Mass/Vol] 8.1 mg/dL Low 8.4-10.4 [facility] Comment on above: Performed By: #### L AB113, LAB17, [id number] ####Attendant Campground: RUTH ANN BRAGG ([phone])[facility] (SBHLAB)[address] Chloride [Moles/Vol] 113 mmol/L High 98-107 [facility] Comment on above: Performed By: #### L AB113, LAB17, NIS297 ####Attendant Campground: RUTH ANN BRAGG ([phone])[facility] ([facility])[address] CO2 [Moles/Vol] 25 mmol/L Normal 22-[address] [facility] Comment on above: Performed By: #### L AB113, LAB17, TIL619 ####Attendant Campground: RUTH ANN BRAGG ([phone])[facility] (SBHLAB)[address] Creatinine [Mass/Vol] 1.18 mg/dL High 0.52-1.04 [facility] Comment on above: Performed By: #### L AB113, LAB17, UCM096 ####Attendant Campground: RUTH ANN BRAGG ([phone])[facility] (SBHLAB)[address] [place] [address] [place] GLOMERULAR FILTRATION RATE ML/MIN/1.73 SQ M.PREDICTED 47.4 mL/min/1.73m*2 Low >60.0 [facility] Comment on above: Result Comment: Calc ulation based on the Chronic Kidney Disease Epidemiology Collaboration (CKD-EPI) equation refit without adjustment for race Performed By: #### L ABMara, LAB17, [id number] ####Attendant Campground: RUTH ANN BRAGG ([phone])[facility] (SBHLAB)[address] Glucose [Mass/Vol] 143 mg/dL High 70-100 [facility] Comment on above: Performed By: #### Jayy PLAZA, LAB17, [id number] ####Attendant Campground: RUTH ANN BRAGG ([phone])[facility] (SBHLAB)[address] Potassium [Moles/Vol] 3.7 mmol/L Normal 3.5-5.1 [facility] Comment on above: Performed By: #### Jayy PLAZA, LAB17, MNT155 ####Attendant Campground: RUTH ANN BRAGG ([phone])[facility] (HLAB)[address] Protein [Mass/Vol] 5.0 g/dL Low 6.3-8.2 [facility] Comment on above: Performed By: #### Jayy PLAZA, LAB17, [id number] ####Attendant Campground: RUTH ANN BRAGG ([phone])[facility] (HLAB)[address] Sodium [Moles/Vol] 140 mmol/L Normal 135-145 [facility] Comment on above: Performed By: #### Jayy PLAZA, LAB17, [id number] ####Attendant Campground: RUTH ANN BRAGG ([phone])[facility] (SBHLAB)[address] Urea nitrogen [Mass/Vol] 37 mg/dL High 7-17 [facility] Comment on above: Performed By: #### Jayy ABMara, LAB17, [id number] ####Attendant Campground: RUTH ANN BRAGG ([phone])[facility] (SBHLAB)[address] Calcium.ionized [Moles/Vol]o n 07-01-2024 Calcium.ionized (Bld) [Moles/Vol] 4.6 mg/dL 4.30 - 5.20 mg/dL [facility] Interpretation and review of laboratory results Normal [facility] PH, IONIZED CALCIUM 7.46 7.31 - 7.46 [facility] Comprehensive metabolic 1998 panelon 07-01-2024 Albumin [Mass/Vol] 2.3 g/dL Low 3.5 - 5.0 g/dL [facility] ALP [Catalytic activity/Vol] 93 U/L 38 - 126 U/L [facility] ALT [Catalytic activity/Vol] 28 U/L 0 - 34 U/L [facility] Anion gap [Moles/Vol] 2 mmol/L Low 3 - 13 mmol/L [facility] AST [Catalytic activity/Vol] 51 U/L High 15 - 46 U/L [facility] Bilirubin [Mass/Vol] 0.7 mg/dL 0.2 - 1 .3 mg/dL [facility] Calcium [Mass/Vol] 8.1 mg/dL Low 8.4 - 10. 4 mg/dL [facility] Chloride [Moles/Vol] 113 mmol/L High 98 - 10 7 mmol/L [facility] CO2 [Moles/Vol] 25 mmol/L 22 - 30 mmol/L [facility] Creatinine [Mass/Vol] 1.18 mg/dL High 0.52 - 1.04 mg/dL [facility] GFR/1.73 sq M.predicted (S/P/Bld) [Vol rate/Area] 47.4 mL/min Low - PINF [facility] Glucose [Mass/Vol] 143 mg/dL High 70 - 100 mg/dL [facility] Interpretation and review of laboratory results Abnormal [facility] Potassium [Moles/Vol] 3.7 mmol/L 3.5 - 5.1 mmol/L [facility] Protein [Mass/Vol] 5 g/dL Low 6.3 - 8.2 g/dL [facility] Sodium [Moles/Vol] 140 mmol/L 135 - 145 mmol/L [facility] Urea nitrogen [Mass/Vol] 37 mg/dL High 7 - 17 mg/dL [facility] LEGIONELLA AND STREPTOCOCCUS URINE ANTIGENon 07-01-2024 LEGIONELLA AND STREPTOCOCCUS URINE ANTIGEN Normal [facility] System [facility] Comment on above: Performed By: #### L [id number] ####Attendant Campground: CHERYL STOREY ([phone])[facility] (SAC[facility])[address] [place] [address] Laboratory - Chemistry and C hemistry - challengeon 07-01-2024 Glucose [Mass/Vol] 159 mg/dL High 70 - 100 mg/dL [facility] Glucose [Mass/Vol] 194 mg/dL High 70 - 100 mg/dL [facility] Glucose [Mass/Vol] 172 mg/dL High 70 - 100 mg/dL [facility] Glucose [Mass/Vol] 133 mg/dL High 70 - 100 mg/dL [facility] Magnesium [Mass/Vol] 2 mg/dL 1.6 - 2 .3 mg/dL [facility] Ammonia (P) [Moles/Vol] 46 umol/L High 9 - 30 umol/L [facility] MAGNESIUMon 07-01-2024 Magnesium [Mass/Vol] 2.0 mg/dL Normal 1.6-2.3 [facility] Comment on above: Performed By: #### L AB113, LAB17, [id number] ####Attendant Campground: RUTH ANN BRAGG ([phone])[facility] (SBHLAB)[address] [place] [address] No Panel Informationon 07-01 Interpretation and review of laboratory results Abnormal [facility] Interpretation and review of laboratory results Abnormal [facility] Interpretation and review of laboratory results Abnormal [facility] Interpretation and review of laboratory results Abnormal [facility] Interpretation and review of laboratory results Normal [facility] Interpretation and review of laboratory results Abnormal [facility] No Panel InformationOrdered By: Jeancarlos Johnson on 07-01-2024 Interpretation and review of laboratory results Normal [facility] Legionella pneumophila Ag Not detected No t Detected [facility] Streptococcus pneumoniae Ag Not detected Not Detected [facility] PHOSPHORUSon 07-01-2024 Phosphate [Mass/Vol] 2.7 mg/dL Normal 2.5-4.5 [facility] Comment on above: Performed By: #### L AB113, LAB17, [id number] ####Attendant Campground: RUTH ANN BRAGG ([phone])[facility] [place] (SBHLAB)[address] [place] [address] [place] Phosphate [Moles/Vol]on 06-09 Phosphate [Mass/Vol] 2.7 mg/dL 2.5 - 4 .5 mg/dL [facility] Progress Noteon 07-01-2024 Progress Note Normal [facility] RESPIRATORY PATHOGENS PANEL BY PCRon 07-01-2024 RESPIRATORY PATHOGENS PANEL BY PCR Normal [facility] Comment on above: Performed By: #### L [id number] ####Attendant Campground: CHERYL STOREY ([phone])[facility] (SAC[facility])[address] [place] [id number] [facility] Respiratory pathogens DNA an d RNA panel HUGO+non-probe (Nph)on 07-01-2024 Adenovirus Not detected Not Detected [facility] B. pertussis DNA HUGO+probe Ql (Unsp spec) Not detected Not Detected [facility] Bordetella parapertussis Not detected Not Detected [facility] Chlamydia pneumoniae Not detected Not Detected [facility] Coronavirus 229E Not detected Not Detected [facility] Coronavirus HKU1 Not detected Not Detected [facility] Coronavirus NL63 Not detected Not Detected [facility] Coronavirus OC43 Not detected Not Detected [facility] FLUAV RNA HUGO+non-probe Ql (Nph) Not detected Not Detected [facility] FLUBV RNA HUGO+non-probe Ql (Nph) Not detected Not Detected [facility] Human Metapneumovirus Not detected Not Detected [facility] Human Rhinovirus/Enterovirus Not detected Not Detected [facility] Interpretation and review of laboratory results Normal [facility] Mycoplasma pneumoniae Not detected Not Detected [facility] Parainfluenza 1 Not detected Not Detected [facility] Parainfluenza 2 Not detected Not Detected [facility] Parainfluenza 3 Not detected Not Detected [facility] Parainfluenza 4 Not detected Not Detected [facility] Respiratory Syncytial Virus Not detected Not Detected [facility] SARS-CoV-2 (COVID-19) RNA HUGO+non-probe Ql (Nph) Not detected Not Detected [facility] 30on 06-30-2024 30 Normal [facility] AMMONIAon 06-30-2024 Ammonia (P) [Mass/Vol] ug/dL Low 9-30 [facility] Comment on above: Performed By: #### L [id number] ####Attendant Campground: RUTH ANN BRAGG ([phone])[facility] (SB[facility])[address] CALCIUM, IONIZEDon CALCIUM IONIZED 4.80 mg/dL Normal 4.30-5.[address] [facility] Comment on above: Performed By: #### L AB54 ####Attendant Campground: RUTH ANN BRAGG ([phone])[facility] (SBHLAB)[address] PH, IONIZED CALCIUM 7.46 Normal 7.31-7.46 [facility] Comment on above: Performed By: #### L AB54 ####Attendant Campground: RUTH ANN BRAGG ([phone])[facility] (SBHLAB)[address] [place] [address] CBC W Auto Differential pane l (Bld)on 06-30-2024 Basophils (Bld) [#/Vol] 0 10*3/uL 0.0 - 0.2 10*3/uL [facility] Basophils/100 WBC (Bld) 0.3 % 0.0 - 2.0 % [facility] Eosinophils (Bld) [#/Vol] 0.4 10*3/uL 0. 0 - 0.5 10*3/uL [facility] Eosinophils/100 WBC (Bld) 6.1 % High 0.0 - 6.0 % [facility] Erythrocyte distribution width (RBC) [Ratio] 15 % 11.5 - 15.0 % [facility] Hematocrit (Bld) [Volume fraction] 24.7 % Low 35.0 - 47.0 % [facility] Hemoglobin (Bld) [Mass/Vol] 7.5 g/dL Low 11.7 - 16.0 g/dL [facility] Immature granulocytes (Bld) [#/Vol] 0.1 10*3/uL High NINF - 0.1 10*3/uL [facility] Immature granulocytes/100 WBC (Bld) 0.9 % 0.0 - 2.0 % [facility] Interpretation and review of laboratory results Abnormal [facility] IPF 4 [facility] [employer] Lymphocytes (Bld) [#/Vol] 1.1 10*3/uL 1. 0 - 4.3 10*3/uL [facility] [employer] Lymphocytes/100 WBC (Bld) 15.4 % 15 .0 - 45.0 % [facility] MCH (RBC) [Entitic mass] 31 pg 26. 0 - 34.0 pg [facility] [employer] MCHC (RBC) [Mass/Vol] 30.4 % Low 30.5 - 36.0 % [facility] [employer] MCV (RBC) [Entitic vol] 102.1 fL High 77.0 - 99.0 fL [facility] [employer] Monocytes (Bld) [#/Vol] 1.1 10*3/uL High 0.0 - 0.9 10*3/uL [facility] [employer] Monocytes/100 WBC (Bld) 15.4 % High 5.0 - 13.0 % [facility] Neutrophils (Bld) [#/Vol] 4.3 10*3/uL 1. 8 - 7.5 10*3/uL [facility] [employer] Neutrophils/100 WBC (Bld) 61.9 % 38 .0 - 82.0 % [facility] [employer] Nucleated RBC/100 WBC (Bld) [Ratio] 0 % [facility] [employer] Platelet mean volume (Bld) [Entitic vol] 11.8 fL 9.0 - 12.7 fL [facility] [employer] Platelets (Bld) [#/Vol] 74 10*3/uL Low 140 - 440 10*3/uL [facility] RBC (Bld) [#/Vol] 2.42 10*6/uL Low 3.80 - 5.2 0 10*6/uL [facility] WBC (Bld) [#/Vol] 6.9 10*3/uL 3.6 - 10.7 10*3/uL [facility] CBC WITH AUTO DIFFERENTIALon 06-30-2024 Basophils (Bld) [#/Vol] 0.0 10*3/uL Normal 0.0-0.2 [facility] Comment on above: Performed By: #### L [id number] ####Attendant Campground: RUTH ANN BRAGG ([phone])[facility] (SB[facility])[address] [place] [address] Basophils/100 WBC (Bld) 0.3 % Normal 0.0-2.0 [facility] Comment on above: Performed By: #### L [id number] ####Attendant Campground: RUTH ANN BRAGG ([phone])[facility]ITALO[facility] (SBHLAB)[address] Eosinophils (Bld) [#/Vol] 0.4 10*3/uL Normal 0.0-0.5 [facility] Comment on above: Performed By: #### L [id number] ####Attendant Campground: RUTH ANN BRAGG ([phone])[facility] [facility] Eosinophils/100 WBC (Bld) 6.1 % High 0.0-6.0 [facility] Comment on above: Performed By: #### L [id number] ####Attendant Campground: RUTH ANN BRAGG ([phone])[facility] [place] [address] Erythrocyte distribution width (RBC) [Ratio] 15.0 % Normal 11.5-15.0 [facility] Comment on above: Performed By: #### L [id number] ####Attendant Campground: RUTH ANN BRAGG ([phone])[facility] [place] [address] Hematocrit (Bld) [Volume fraction] 24.7 % Low 35.0-47.0 [facility] Comment on above: Performed By: #### L [id number] ####Attendant Campground: RUTH ANN BRAGG ([phone])[facility] [place] [address] Hemoglobin (Bld) [Mass/Vol] 7.5 g/dL Low 11.7-16.0 [facility] Comment on above: Performed By: #### L [id number] ####Attendant Campground: RUTH ANN BRAGG ([phone])[facility] ([facility])[address] IMMATURE GRANS % 0.9 % Normal 0.0-2.0 [facility] Comment on above: Performed By: #### L [id number] ####Attendant Campground: RUTH ANN BRAGG ([phone])[facility] ([facility])[address] IMMATURE GRANS ABSOLUTE 0.1 10*3/uL High <0.1 [facility] Comment on above: Performed By: #### L [id number] ####Attendant Campground: RUTH ANN BRAGG ([phone])[facility] ([facility])[address] IPF 4 Normal [facility] Comment on above: Performed By: #### L [id number] ####Attendant Campground: RUTH ANN BRAGG ([phone])[facility] [place] [address] Lymphocytes (Bld) [#/Vol] 1.1 10*3/uL Normal 1.0-4.3 [facility] Comment on above: Performed By: #### L [id number] ####Attendant Campground: RUTH ANN BRAGG ([phone])[facility] Lymphocytes/100 WBC (Bld) 15.4 % Normal 15.0-45.0 [facility] Comment on above: Performed By: #### L [id number] ####Attendant Campground: RUTH ANN BRAGG ([phone])[facility] ([facility])[address] MCH (RBC) [Entitic mass] 31.0 pg Normal 26.0-34.0 [facility] Comment on above: Performed By: #### L [id number] ####Attendant Campground: RUTH ANN BRAGG ([phone])[facility] ([facility] MCHC 30.4 % Low 30.5-36.0 [facility] Comment on above: Performed By: #### L [id number] ####Attendant Campground: RUTH ANN YEMI ([phone])[facility] [place] ([facility])[address] MCV (RBC) [Entitic vol] 102.1 fL High 77.0-99.0 S [facility] Comment on above: Performed By: #### L [id number] ####Attendant Campground: RUTH ANN YEMI ([phone])[facility] [place] (SBHLAB)[address] Monocytes (Bld) [#/Vol] 1.1 10*3/uL High 0.0-0.9 [facility] Comment on above: Performed By: #### L [id number] ####Attendant Campground: RUTH ANN BRAGG ([phone])[facility] [place] ([facility])[address] Monocytes/100 WBC (Bld) 15.4 % High 5.0-13.0 [facility] Comment on above: Performed By: #### L [id number] ####Attendant Campground: RUTH ANN YEMI ([phone])[facility] [place] (SBHLAB)[address] NEUTROPHILS ABSOLUTE 4.3 10*3/uL Normal 1.8-7.5 [facility] Comment on above: Performed By: #### L [id number] ####Attendant Campground: RUTH ANN OBREGONWILTON ([phone])[facility] [place] ([facility])[address] Neutrophils/100 WBC (Bld) 61.9 % Normal 38.0-82.0 [facility] Comment on above: Performed By: #### L [id number] ####Attendant Campground: RUTH ANN HERRONSHELTON ([phone])[facility] [place] (SBHLAB)[address] NRBC 0.0 /100 WBCs Normal 0.0-2.0 [facility] Comment on above: Performed By: #### L [id number] ####Attendant Campground: RUTH ANN BRAGG ([phone])[facility] (SBHLAB)[address] Platelet mean volume (Bld) [Entitic vol] 11.8 fL Normal 9.0-12.7 [facility] Comment on above: Performed By: #### L [id number] ####Attendant Campground: RUTH ANN BRAGG ([phone])[facility] (SBHLAB)[address] Platelets (Bld) [#/Vol] 74 10*3/uL Low 140-440 S [facility] Comment on above: Performed By: #### L [id number] ####Attendant Campground: RUTH ANN BRAGG ([phone])[facility] (SBHLAB)[address] RBC (Bld) [#/Vol] 2.42 10*6/uL Low 3.80-5.20 [facility] Comment on above: Performed By: #### L [id number] ####Attendant Campground: RUTH ANN BRAGG ([phone])[facility] (SBHLAB)[address] WBC (Bld) [#/Vol] 6.9 10*3/uL Normal 3.6-10.7 [facility] Comment on above: Performed By: #### L [id number] ####Attendant Campground: RUTH ANN BRAGG ([phone])[facility] (SBHLAB)[address] COMPREHENSIVE METABOLIC PANE Smith 06-30-2024 Albumin [Mass/Vol] 2.3 g/dL Low 3.5-5.0 [facility] Comment on above: Performed By: #### L AB17, [id number], [id number] ####Attendant Campground: RUTH ANN BRAGG ([phone])[facility] ([facility]HLAB)[address] ALP [Catalytic activity/Vol] 81 U/L Normal 38-126 [facility] Comment on above: Performed By: #### L AB17, NUB817, UBQ671 ####Attendant Campground: RUTH ANN BRAGG ([phone])[facility] (SBHLAB)[address] ALT [Catalytic activity/Vol] 24 U/L Normal 0-34 [facility] Comment on above: Performed By: #### L AB17, TLV706, [id number] ####Attendant Campground: RUTH ANN BRAGG ([phone])[facility] ([facility])[address] Anion gap [Moles/Vol] 3 mmol/L Normal 3-13 [facility] Comment on above: Performed By: #### L AB17, GBD891, [id number] ####Attendant Campground: RUTH ANN BRAGG ([phone])[facility] (SBHLAB)[address] AST [Catalytic activity/Vol] 43 U/L Normal 15-46 [facility] Comment on above: Performed By: #### L AB17, HNV877, CIB787 ####Attendant Campground: RUTH ANN BRAGG ([phone])[facility] ([facility])[address] Bilirubin [Mass/Vol] 0.8 mg/dL Normal 0.2-1.3 [facility] Comment on above: Performed By: #### L AB17, CVE352, [id number] ####Attendant Campground: RUTH ANN BRAGG ([phone])[facility] [place] ([facility])[address] [place] [address] [place] Calcium [Mass/Vol] 8.4 mg/dL Normal 8.4-10.4 [facility] Comment on above: Performed By: #### L AB17, TRC738, HMX117 ####Attendant Campground: RUTH ANN BRAGG ([phone])[facility] (SBHLAB)[address] [place] [address] [place] Chloride [Moles/Vol] 117 mmol/L High 98-107 [facility] Comment on above: Performed By: #### L AB17, GLW980, BLA509 ####Attendant Campground: RUTH ANN PRITCHARDCER ([phone])[facility] (SBHLAB)[address] CO2 [Moles/Vol] 23 mmol/L Normal 22-[address] [facility] Comment on above: Performed By: #### L AB17, YSA043, RMU939 ####Attendant Campground: RUTH ANN BRAGG ([phone])[facility] (SBAB)[address] Creatinine [Mass/Vol] 1.15 mg/dL High 0.52-1.04 [facility] Comment on above: Performed By: #### L AB17, AIP800, NWU711 ####Attendant Campground: RUTH ANN BRAGG ([phone])[facility] ([facility] GLOMERULAR FILTRATION RATE ML/MIN/1.73 SQ M.PREDICTED 48.9 mL/min/1.73m*2 Low >60.0 [facility] Comment on above: Result Comment: Calc ulation based on the Chronic Kidney Disease Epidemiology Collaboration (CKD-EPI) equation refit without adjustment for race Performed By: #### L AB17, BRH593, ACG384 ####Attendant Campground: RUTH ANN BRAGG ([phone])[facility] (SBHLAB)[address] Glucose [Mass/Vol] 131 mg/dL High 70-100 [facility] Comment on above: Performed By: #### L AB17, FPG545, WTF347 ####Attendant Campground: RUTH ANN BRAGG ([phone])[facility] ([facility] Potassium [Moles/Vol] 3.5 mmol/L Normal 3.5-5.1 [facility] Comment on above: Performed By: #### L AB17, JDX710, RBB453 ####Attendant Campground: RUTH ANN YEMI ([phone])[facility] (SBHLAB)[address] Protein [Mass/Vol] 5.0 g/dL Low 6.3-8.2 [facility] Comment on above: Performed By: #### L AB17, KMQ224, RJX058 ####Attendant Campground: RUTH ANN OBREGONDavidSHELTON ([phone])[facility] (SBHLAB)[address] Sodium [Moles/Vol] 142 mmol/L Normal 135-145 [facility] Comment on above: Performed By: #### L AB17, LXE295, NSV676 ####Attendant Campground: RUTH ANN OBREGONWILTON ([phone])[facility] (SBHLAB)[address] [place] [address] Urea nitrogen [Mass/Vol] 48 mg/dL High 7-17 [facility] Comment on above: Performed By: #### L AB17, OCF274, QXF820 ####Attendant Campground: RUTH ANN OBREGONWILTON ([phone])[facility] (SBHLAB)[address] [place] [address] Calcium.ionized [Moles/Vol]o n 06-30-2024 Calcium.ionized (Bld) [Moles/Vol] 4.8 mg/dL 4.30 - 5.20 mg/dL [facility] Interpretation and review of laboratory results Normal [facility] PH, IONIZED CALCIUM 7.46 7.31 - 7.46 [facility] Comprehensive metabolic 1998 panelon 06-30-2024 Albumin [Mass/Vol] 2.3 g/dL Low 3.5 - 5.0 g/dL [facility] ALP [Catalytic activity/Vol] 81 U/L 38 - 126 U/L [facility] ALT [Catalytic activity/Vol] 24 U/L 0 - 34 U/L [facility] Anion gap [Moles/Vol] 3 mmol/L 3 - 13 mmol/L [facility] AST [Catalytic activity/Vol] 43 U/L 15 - 46 U/L [facility] Bilirubin [Mass/Vol] 0.8 mg/dL 0.2 - 1 .3 mg/dL [facility] Calcium [Mass/Vol] 8.4 mg/dL 8.4 - 10. 4 mg/dL [facility] Chloride [Moles/Vol] 117 mmol/L High 98 - 10 7 mmol/L [facility] CO2 [Moles/Vol] 23 mmol/L 22 - 30 mmol/L [facility] Creatinine [Mass/Vol] 1.15 mg/dL High 0.52 - 1.04 mg/dL [facility] GFR/1.73 sq M.predicted (S/P/Bld) [Vol rate/Area] 48.9 mL/min Low - PINF [facility] Glucose [Mass/Vol] 131 mg/dL High 70 - 100 mg/dL [facility] Interpretation and review of laboratory results Abnormal [facility] Potassium [Moles/Vol] 3.5 mmol/L 3.5 - 5.1 mmol/L [facility] Protein [Mass/Vol] 5 g/dL Low 6.3 - 8.2 g/dL [facility] Sodium [Moles/Vol] 142 mmol/L 135 - 145 mmol/L [facility] Urea nitrogen [Mass/Vol] 48 mg/dL High 7 - 17 mg/dL [facility] Laboratory - Chemistry and C hemistry - challengeon 06-30-2024 Glucose [Mass/Vol] 166 mg/dL High 70 - 100 mg/dL [facility] Glucose [Mass/Vol] 210 mg/dL High 70 - 100 mg/dL [facility] Glucose [Mass/Vol] 214 mg/dL High 70 - 100 mg/dL [facility] Glucose [Mass/Vol] 141 mg/dL High 70 - 100 mg/dL [facility] Magnesium [Mass/Vol] 2.1 mg/dL 1.6 - 2 .3 mg/dL [facility] Ammonia (P) [Moles/Vol] umol/L Low 9 - 30 umol/L [facility] MAGNESIUMon 06-30-2024 Magnesium [Mass/Vol] 2.1 mg/dL Normal 1.6-2.3 [facility] Comment on above: Performed By: #### L AB17, [id number], TEC599 ####Attendant Campground: RUTH ANN BRAGG ([phone])[facility] [place] (SBHLAB)[address] No Panel Informationon 06-30 Interpretation and review of laboratory results Abnormal [facility] Interpretation and review of laboratory results Abnormal [facility] Interpretation and review of laboratory results Abnormal [facility] Interpretation and review of laboratory results Abnormal [facility] Interpretation and review of laboratory results Normal [facility] Interpretation and review of laboratory results Abnormal [facility] PHOSPHORUSon 06-30-2024 Phosphate [Mass/Vol] 3.1 mg/dL Normal 2.5-4.5 [facility] Comment on above: Performed By: #### L AB17, [id number], [id number] ####Attendant Campground: RUTH ANN BRAGG ([phone])[facility] [place] [address] [place] Phosphate [Moles/Vol]on 06-09 Phosphate [Mass/Vol] 3.1 mg/dL 2.5 - 4 .5 mg/dL [facility] Progress Noteon 06-30-2024 Progress Note Normal [facility] 30on 06-29-2024 30 Normal [facility] [id number] 06-29-2024 [id number] Normal [facility] AMMONIAon 06-29-2024 Ammonia (P) [Mass/Vol] ug/dL Low 9-30 [facility] Comment on above: Performed By: #### L AB47 ####Attendant Campground: RUTH ANN BRAGG ([phone])[facility] ([facility] [place] [address] [place] CALCIUM, IONIZEDon CALCIUM IONIZED 4.80 mg/dL Normal 4.30-5.[address] [facility] Comment on above: Performed By: #### L AB54 ####Attendant Campground: RUTH ANN BRAGG ([phone])[facility] ([facility] PH, IONIZED CALCIUM 7.49 High 7.31-7.46 [facility] Comment on above: Performed By: #### L AB54 ####Attendant Campground: RUTH ANN BRAGG ([phone])[facility] [place] (SBHLAB)[address] CBC W Auto Differential pane l (Bld)on 06-29-2024 Erythrocyte distribution width (RBC) [Ratio] 15.3 % High 11.5 - 15.0 % [facility] Hematocrit (Bld) [Volume fraction] 30 % Low 35.0 - 47.0 % [facility] Hemoglobin (Bld) [Mass/Vol] 9.3 g/dL Low 11.7 - 16.0 g/dL [facility] MCH (RBC) [Entitic mass] 31.4 pg 26. 0 - 34.0 pg [facility] MCHC (RBC) [Mass/Vol] 31 % 30.5 - 36.0 % [facility] MCV (RBC) [Entitic vol] 101.4 fL High 77.0 - 99.0 fL [facility] [employer] Platelet mean volume (Bld) [Entitic vol] 11.1 fL 9.0 - 12.7 fL [facility] Platelets (Bld) [#/Vol] 95 10*3/uL Low 140 - 440 10*3/uL [facility] RBC (Bld) [#/Vol] 2.96 10*6/uL Low 3.80 - 5.2 0 10*6/uL [facility] WBC (Bld) [#/Vol] 9.4 10*3/uL 3.6 - 10.7 10*3/uL [facility] CBC WITH AUTO DIFFERENTIALon 06-29-2024 Erythrocyte distribution width (RBC) [Ratio] 15.3 % High 11.5-15.0 [facility] Comment on above: Performed By: #### L [id number], [id number] ####Attendant Campground: RUTH ANN BRAGG ([phone])[facility] [place] (SBHLAB)[address] Hematocrit (Bld) [Volume fraction] 30.0 % Low 35.0-47.0 [facility] Comment on above: Performed By: #### L [id number], [id number] ####Attendant Campground: RUTH ANN HERRONSHELTON ([phone])[facility] [place] (SBHLAB)[address] Hemoglobin (Bld) [Mass/Vol] 9.3 g/dL Low 11.7-16.0 [facility] Comment on above: Performed By: #### L [id number], [id number] ####Attendant Campground: RUTH ANN PRITCHARDCER ([phone])[facility] [place]ERS[place] (SBHLAB)[address] MCH (RBC) [Entitic mass] 31.4 pg Normal 26.0-34.0 [facility] Comment on above: Performed By: #### L [id number], [id number] ####Attendant Campground: RUTH ANN YEMI ([phone])[facility]ALTH[facility] [place] (SBHLAB)[address] MCHC 31.0 % Normal 30.5-36.0 [facility] Comment on above: Performed By: #### L [id number], [id number] ####Attendant Campground: RUTH ANN YEMI ([phone])[facility] (SBHLAB)[address] MCV (RBC) [Entitic vol] 101.4 fL High 77.0-99.0 S [facility] Comment on above: Performed By: #### L [id number], [id number] ####Attendant Campground: RUTH ANN HERRONSHELTON ([phone])[facility] (SBHLAB)[address] Platelet mean volume (Bld) [Entitic vol] 11.1 fL Normal 9.0-12.7 [facility] Comment on above: Performed By: #### L [id number], [id number] ####Attendant Campground: RUTH ANN HERRONSHELTON ([phone])[facility] (SBHLAB)[address] Platelets (Bld) [#/Vol] 95 10*3/uL Low 140-440 [facility] Comment on above: Performed By: #### L [id number], [id number] ####Attendant Campground: RUTH ANN BRAGG ([phone])[place] (SBHLAB)[address] RBC (Bld) [#/Vol] 2.96 10*6/uL Low 3.80-5.20 [facility] Comment on above: Performed By: #### L [id number], [id number] ####Attendant Campground: RUTH ANN BRAGG ([phone])[facility] ([facility])[address] WBC (Bld) [#/Vol] 9.4 10*3/uL Normal 3.6-10.7 [facility] Comment on above: Performed By: #### L [id number], [id number] ####Attendant Campground: RUTH ANN BRAGG ([phone])[facility] [place] ([facility]AB)[address] COMPREHENSIVE METABOLIC PANE Smith 06-29-2024 Albumin [Mass/Vol] 2.9 g/dL Low 3.5-5.0 [facility] Comment on above: Performed By: #### L AB113, LAB17, [id number] ####Attendant Campground: RUTH ANN BRAGG ([phone])[facility] HEALTHRyan [place] (SBHLAB)[address] ALP [Catalytic activity/Vol] 123 U/L Normal 38-126 [facility] Comment on above: Performed By: #### L AB113, LAB17, SDE147 ####Attendant Campground: RUTH ANN BRAGG ([phone])[facility] [place] ([facility])[address] ALT [Catalytic activity/Vol] 26 U/L Normal 0-34 [facility] Comment on above: Performed By: #### L AB113, LAB17, HDG210 ####Attendant Campground: RUTH ANN BRAGG ([phone])[facility] [place] ([facility])[address] Anion gap [Moles/Vol] 4 mmol/L Normal 3-13 [facility] Comment on above: Performed By: #### Jayy ABMara, LAB17, [id number] ####Attendant Campground: RUTH ANN BRAGG ([phone])[facility] HEALTHRyan SANDERSOmi (SBHLAB)[address] AST [Catalytic activity/Vol] 53 U/L High 15-46 [facility] Comment on above: Performed By: #### Jayy ABMara, LAB17, PTS244 ####Attendant Campground: RUTH ANN BRAGG ([phone])[facility] HEALTHRyan [place]N (SBHLAB)[address] Bilirubin [Mass/Vol] 0.9 mg/dL Normal 0.2-1.3 [facility] Comment on above: Performed By: #### Jayy PLAZA, LAB17, [id number] ####Attendant Campground: RUTH ANN BRAGG ([phone])[facility] HEALTHRyan SANDERSOmi (SBHLAB)[address] Calcium [Mass/Vol] 9.0 mg/dL Normal 8.4-10.4 [facility] Comment on above: Performed By: #### Jayy ABMara, LAB17, [id number] ####Attendant Campground: RUTH ANN BRAGG ([phone])[facility] [place] (SBHLAB)[address] [place] [address] [place] Chloride [Moles/Vol] 120 mmol/L High 98-107 [facility] Comment on above: Performed By: #### L ABMara, LAB17, [id number] ####Attendant Campground: RUTH ANN BRAGG ([phone])[facility] [place] (SBHLAB)[address] [place] [address] [place] CO2 [Moles/Vol] 21 mmol/L Low 22-30 [facility] Comment on above: Performed By: #### Jayy ABMara, LAB17, [id number] ####Attendant Campground: RUTH ANN BRAGG ([phone])[facility] HEALTHRyan [place]N (SBHLAB)[address] [place] [address] [place] Creatinine [Mass/Vol] 1.25 mg/dL High 0.52-1.04 [facility] Comment on above: Performed By: #### L AB113, LAB17, BLM733 ####Attendant Campground: RUTH ANN BRAGG ([phone])[facility] HEALTHRyan [place]ERSN (SBHLAB)[address] [place] [address] [place] GLOMERULAR FILTRATION RATE ML/MIN/1.73 SQ M.PREDICTED 44.2 mL/min/1.73m*2 Low >60.0 [facility] Comment on above: Result Comment: Calc ulation based on the Chronic Kidney Disease Epidemiology Collaboration (CKD-EPI) equation refit without adjustment for race Performed By: #### Jayy ABMara, LAB17, [id number] ####Attendant Campground: RUTH ANN BRAGG ([phone])[facility] (SBHLAB)[address] Glucose [Mass/Vol] 190 mg/dL High 70-100 [facility] Comment on above: Performed By: #### Jayy ABMara, LAB17, EQO210 ####Attendant Campground: RUTH ANN BRAGG ([phone])[facility] HEALTHRyan [facility] (SBHLAB)[address] Potassium [Moles/Vol] 3.7 mmol/L Normal 3.5-5.1 [facility] Comment on above: Performed By: #### Jayy ABMara, LAB17, CDC209 ####Attendant Campground: RUTH ANN BRAGG ([phone])[facility]ALTHRyan [facility] (SBHLAB)[address] [place] [address] [place] Protein [Mass/Vol] 5.8 g/dL Low 6.3-8.2 [facility] Comment on above: Performed By: #### L AB113, LAB17, HLD985 ####Attendant Campground: RUTH ANN BRAGG ([phone])[facility] (SBHLAB)[address] [place] [address] [place] Sodium [Moles/Vol] 145 mmol/L Normal 135-145 [facility] Comment on above: Performed By: #### L AB113, LAB17, PKV929 ####Attendant Campground: RUTH ANN BRAGG ([phone])[facility] (SBHLAB)[address] Urea nitrogen [Mass/Vol] 51 mg/dL High 7-17 [facility] Comment on above: Performed By: #### L AB113, LAB17, QKM663 ####Attendant Campground: RUTH ANN BRAGG ([phone])[facility] (SBHLAB)[address] Calcium.ionized [Moles/Vol]O rdered By: Carola Hernandez on 06-29-2024 Calcium.ionized (Bld) [Moles/Vol] 4.8 mg/dL 4.30 - 5.20 mg/dL [facility] Interpretation and review of laboratory results Abnormal [facility] PH, IONIZED CALCIUM 7.49 High 7.31 - 7.46 [facility] Comprehensive metabolic 1998 panelon 06-29-2024 Albumin [Mass/Vol] 2.9 g/dL Low 3.5 - 5.0 g/dL [facility] ALP [Catalytic activity/Vol] 123 U/L 38 - 126 U/L [facility] ALT [Catalytic activity/Vol] 26 U/L 0 - 34 U/L [facility] Anion gap [Moles/Vol] 4 mmol/L 3 - 13 mmol/L [facility] AST [Catalytic activity/Vol] 53 U/L High 15 - 46 U/L [facility] Bilirubin [Mass/Vol] 0.9 mg/dL 0.2 - 1 .3 mg/dL [facility] Calcium [Mass/Vol] 9 mg/dL 8.4 - 10. 4 mg/dL [facility] Chloride [Moles/Vol] 120 mmol/L High 98 - 10 7 mmol/L [facility] CO2 [Moles/Vol] 21 mmol/L Low 22 - 30 mmol/L [facility] Creatinine [Mass/Vol] 1.25 mg/dL High 0.52 - 1.04 mg/dL [facility] GFR/1.73 sq M.predicted (S/P/Bld) [Vol rate/Area] 44.2 mL/min Low - PINF [facility] [facility] Glucose [Mass/Vol] 190 mg/dL High 70 - 100 mg/dL [facility] Potassium [Moles/Vol] 3.7 mmol/L 3.5 - 5.1 mmol/L [facility] Protein [Mass/Vol] 5.8 g/dL Low 6.3 - 8.2 g/dL [facility] Sodium [Moles/Vol] 145 mmol/L 135 - 145 mmol/L [facility] Urea nitrogen [Mass/Vol] 51 mg/dL High 7 - 17 mg/dL [facility] Laboratory - Chemistry and C hemistry - challengeon 06-29-2024 Glucose [Mass/Vol] 162 mg/dL High 70 - 100 mg/dL [facility] Glucose [Mass/Vol] 195 mg/dL High 70 - 100 mg/dL [facility] Glucose [Mass/Vol] 190 mg/dL High 70 - 100 mg/dL [facility] Glucose [Mass/Vol] 195 mg/dL High 70 - 100 mg/dL [facility] Magnesium [Mass/Vol] 2.2 mg/dL 1.6 - 2 .3 mg/dL [facility] Ammonia (P) [Moles/Vol] umol/L Low 9 - 30 umol/L [facility] Laboratory - Hematology and Cell countson 06-29-2024 Anisocytosis Ql (Bld) Slight Abnormal (none) [facility] Basophils (Bld) [#/Vol] 0.1 10*3/uL 0.0 - 0.2 10*3/uL [facility] Basophils/100 WBC (Bld) 1 % 0 - 2 % [facility] cells LM Ql (Bld) Slight Abnormal (none) [facility] Eosinophils (Bld) [#/Vol] 0.1 10*3/uL 0. 0 - 0.5 10*3/uL [facility] Eosinophils/100 WBC (Bld) 1 % 0 - 6 % [facility] Lymphocytes (Bld) [#/Vol] 0.8 10*3/uL Low 1. 0 - 4.3 10*3/uL [facility] Lymphocytes/100 WBC (Bld) 8 % Low 15 - 45 % [facility] Monocytes (Bld) [#/Vol] 1 10*3/uL High 0.0 - 0.9 10*3/uL [facility] Monocytes/100 WBC (Bld) 11 % 5 - 13 % [facility] Neutrophils (Bld) [#/Vol] 7.3 10*3/uL 1. 8 - 7.5 10*3/uL [facility] Ovalocytes LM Ql (Bld) Slight Abnormal (none) [facility] Poikilocytosis LM Ql (Bld) Slight Abnormal (none) [facility] RBC morphology finding Nom (Bld) abnormal [facility] Schistocytes LM Ql (Bld) Slight Abnormal (none) [facility] Segmented neutrophils/100 WBC (Bld) 78 % 38 - 82 % [facility] MAGNESIUMon 06-29-2024 Magnesium [Mass/Vol] 2.2 mg/dL Normal 1.6-2.3 [facility] Comment on above: Performed By: #### L AB113, LAB17, [id number] ####Attendant Campground: RUTH ANN BRAGG ([phone])[facility] ([facility])[address] [place] [address] MANUAL DIFFERENTIAL (CELLAVI KRISTIAN)on 06-29-2024 ACANTHOCYTES (PRESENCE) IN BLOOD BY LIGHT MICROSCOPY Slight Abnormal (none) [facility] Comment on above: Performed By: #### L [id number], [id number] ####Attendant Campground: RUTH ANN BRAGG ([phone])[facility] ([facility])[address] [place] [address] ANISOCYTOSIS PRESENCE IN BLOOD BY LIGHT MICROSCOPY Slight Abnormal (none) [facility] Comment on above: Performed By: #### L [id number], [id number] ####Attendant Campground: RUTH ANN BRAGG ([phone])[facility] ([facility])[address] [place] [address] BAND NEUTROPHILS TOTAL PER COUNTED LEUKOCYTES BY MANUAL COUNT Normal [facility] Comment on above: Performed By: #### L [id number], [id number] ####Attendant Campground: RUTH ANN BRAGG ([phone])[facility] ([facility])[address] [place] [address] [place] BASOPHILS (10*3/UL) IN BLOOD-CELLAVISION 0.1 10*3/uL Normal 0.0-0.2 [facility] Comment on above: Performed By: #### L [id number], [id number] ####Attendant Campground: RUTH ANN PRITCHARDCER ([phone])[facility] ([facility])[address] [place] [address] [place] BASOPHILS TOTAL PER COUNTED LEUKOCYTES BY MANUAL COUNT 1 Normal [facility] Comment on above: Performed By: #### L [id number], [id number] ####Attendant Campground: RUTH ANN HERRONSHELTON ([phone])[facility] [place] [address] [place] BASOPHILS/100 LEUKOCYTES IN BLOOD-CELLAVISION 1 % Normal 0-2 [facility] Comment on above: Performed By: #### L [id number], [id number] ####Attendant Campground: RUTH ANN PRITCHARDCER ([phone])[facility] [place] [address] [place] BLASTS TOTAL PER COUNTED LEUKOCYTES BY MANUAL COUNT Normal [facility] Comment on above: Performed By: #### L [id number], [id number] ####Attendant Campground: RUTH ANN HERRONSHELTON ([phone])[facility] [place] [address] [place] EOSINOPHILS (10*3/UL) IN BLOOD-CELLAVISION 0.1 10*3/uL Normal 0.0-0.5 [facility] Comment on above: Performed By: #### L [id number], [id number] ####Attendant Campground: RUTH ANN PRITCHARDCER ([phone])[facility])[address] [place] [address] [place] EOSINOPHILS TOTAL PER COUNTED LEUKOCYTES BY MANUAL COUNT 1 Normal 0-1 [facility] Comment on above: Performed By: #### L GS3088, [id number] ####Attendant Campground: RUTHA NN PRITCHARDCER ([phone])[facility])[address] [place] [address] [place] EOSINOPHILS/100 LEUKOCYTES IN BLOOD-CELLAVISION 1 % Normal 0-6 [facility] Comment on above: Performed By: #### L [id number], [id number] ####Attendant Campground: RUTH ANN BRAGG ([phone])[facility] ([facility])[address] [place] [address] [place] LYMPHOCYTES (10*3/UL) IN BLOOD-CELLAVISION 0.8 10*3/uL Low 1.0-4.3 [facility] Comment on above: Performed By: #### L [id number], [id number] ####Attendant Campground: RUTH ANN BRAGG ([phone])[facility])[address] [place] [address] [place] LYMPHOCYTES TOTAL PER COUNTED LEUKOCYTES BY MANUAL COUNT 8 Normal [facility] Comment on above: Performed By: #### L [id number], [id number] ####Attendant Campground: RUTH ANN BRAGG ([phone])[facility] [place] [address] [place] LYMPHOCYTES/100 LEUKOCYTES IN BLOOD-CELLAVISION 8 % Low 15-45 [facility] Comment on above: Performed By: #### L [id number], [id number] ####Attendant Campground: RUTH ANN BRAGG ([phone])[facility] [place] [address] [place] METAMYELOCYTES TOTAL PER COUNTED LEUKOCYTES BY MANUAL COUNT Normal [facility] Comment on above: Performed By: #### L [id number], [id number] ####Attendant Campground: RUTH ANN BRAGG ([phone])[facility] [place] [address] [place] MONOCYTES (10*3/UL) IN BLOOD-CELLAVISION 1.0 10*3/uL High 0.0-0.9 [facility] Comment on above: Performed By: #### L [id number], [id number] ####Attendant Campground: RUTH ANN BRAGG ([phone])[facility] ([facility])[address] [place] [address] [place] MONOCYTES TOTAL PER COUNTED LEUKOCYTES BY MANUAL COUNT 11 Normal [facility] Comment on above: Performed By: #### L [id number], [id number] ####Attendant Campground: RUTH ANN BRAGG ([phone])[facility] ([facility])[address] [place] [address] [place] MONOCYTES/100 LEUKOCYTES IN BLOOD-TOMMIE 11 % Normal 5-13 [facility] Comment on above: Performed By: #### L [id number], [id number] ####Attendant Campground: RUTH ANN BRAGG ([phone])[facility] [place] [address] [place] MYELOCYTES COUNTED BY MANUAL COUNT Normal [facility] Comment on above: Performed By: #### L [id number], [id number] ####Attendant Campground: RUTH ANN BRAGG ([phone])[facility] ([facility])[address] [place] [address] [place] NEUTROPHILS TOTAL PER COUNTED LEUKOCYTES BY MANUAL COUNT 80 Normal [facility] Comment on above: Performed By: #### L [id number], [id number] ####Attendant Campground: RUTH ANN BRAGG ([phone])[facility] ([facility])[address] [place] [address] [place] OVALOCYTES PRESENCE IN BLOOD BY LIGHT MICROSCOPY Slight Abnormal (none) [facility] Comment on above: Performed By: #### L [id number], [id number] ####Attendant Campground: RUTH ANN BRAGG ([phone])[facility] ([facility])[address] [place] [address] [place] POIKILOCYTOSIS (PRESENCE) IN BLOOD BY LIGHT MICROSCOPY Slight Abnormal (none) [facility] Comment on above: Performed By: #### L [id number], [id number] ####Attendant Campground: RUTH ANN BRAGG ([phone])[facility])[address] [place] [address] [place] PROMYELOCYTES TOTAL PER COUNTED LEUKOCYTES BY MANUAL COUNT Normal [facility] Comment on above: Performed By: #### L [id number], [id number] ####Attendant Campground: RUTH ANN BRAGG ([phone])[facility] ([facility])[address] RBC MORPHOLOGY IN BLOOD abnormal Normal S [facility] Comment on above: Performed By: #### L [id number], [id number] ####Attendant Campground: RUTH ANN BRAGG ([phone])[facility] ([facility])[address] SCHISTOCYTES (PRESENCE) IN BLOOD BY LIGHT MICROSCOPY Slight Abnormal (none) [facility] Comment on above: Performed By: #### L [id number], [id number] ####Attendant Campground: RUTH ANN BRAGG ([phone])[facility] ([facility])[address] [place] [address] [place] SEGMENTED NEUTROPHILS (10*3/UL) IN BLOOD-CELLAVISION 7.3 10*3/uL Normal 1.8-7.5 [facility] Comment on above: Performed By: #### L [id number], [id number] ####Attendant Campground: RUTH ANN BRAGG ([phone])[facility] ([facility])[address] [place] [address] [place] SEGMENTED NEUTROPHILS/100 LEUKOCYTES-CE 78 % Normal 38-82 [facility] Comment on above: Performed By: #### L [id number], [id number] ####Attendant Campground: RUTH ANN BRAGG ([phone])[facility] ([facility])[address] [place] [address] [place] UNCLASSIFIED CELLS TOTAL PER COUNTED LEUKOCYTES BY MANUAL COUNT [facility] Comment on above: Performed By: #### L [id number], [id number] ####Attendant Campground: RUTH ANN BRAGG ([phone])[facility] ([facility])[address] [place] [address] [place] VARIANT LYMPHOCYTES TOTAL PER COUNTED LEUKOCYTES BY MANUAL COUNT [facility] Comment on above: Performed By: #### L [id number], [id number] ####Attendant Campground: RUTH ANN BRAGG ([phone])[facility] [place] ([facility])[address] Magnesium [Mass/Vol]on 06-29 Interpretation and review of laboratory results Normal [facility] No Panel Informationon 06-29 Interpretation and review of laboratory results Abnormal [facility] Interpretation and review of laboratory results Abnormal [facility] Interpretation and review of laboratory results Abnormal [facility] Interpretation and review of laboratory results Abnormal [facility] 1 [facility] Eosin[facility] Manual 1 0 - 1 [facility] Interpretation and review of laboratory results Abnormal [facility] Lymphocytes Manual 8 [facility] Monocytes Manual 11 [facility]th Neutrophils Manual 80 [facility] Interpretation and review of laboratory results Abnormal [facility] Interpretation and review of laboratory results Abnormal [facility] PHOSPHORUSon 06-29-2024 Phosphate [Mass/Vol] 2.2 mg/dL Low 2.5-4.5 [facility] Comment on above: Performed By: #### L AB113, LAB17, [id number] ####Attendant Campground: RUTH ANN BRAGG ([phone])[facility])[address] [place] [address] [place] Phosphate [Moles/Vol]on 06-09 Phosphate [Mass/Vol] 2.2 mg/dL Low 2.5 - 4 .5 mg/dL [facility] Progress Noteon 06-29-2024 Progress Note Normal [facility] Progress Note Normal [facility] Progress Note Normal [facility] Progress [facility] Progress [facility] Normal [facility] Progress Note Normal [facility] 30on 06-28-2024 30 Normal [facility] 30 Normal [facility] [id number] 06-28-2024 [id number] Normal [facility] AMMONIAon 06-28-2024 Ammonia (P) [Moles/Vol] 27 umol/L Normal 9-30 S [facility] Comment on above: Performed By: #### L AB47 ####Attendant Campground: RUTH ANN BRAGG ([phone])[facility] Bacteria identified Cx Nom ( U)Ordered By: Christie Avila on 06-28-2024 Interpretation and review of laboratory results Abnormal [facility] CALCIUM, IONIZEDon 4 CALCIUM IONIZED 4.70 mg/dL Normal 4.30-5.20 [facility] Comment on above: Performed By: #### L AB54 ####Attendant Campground: RUTH ANN BRAGG ([phone])[facility] ([facility])[address] [place] [address] PH, IONIZED CALCIUM 7.50 High 7.31-7.46 [facility] Comment on above: Performed By: #### L AB54 ####Attendant Campground: RUTH ANN BRAGG ([phone])[facility] [place] [address] CBC W Auto Differential pane l (Bld)Ordered By: Jr Chase on 06-28-2024 Erythrocyte distribution width (RBC) [Ratio] 15.6 % High 11.5 - 15.0 % [facility] Hematocrit (Bld) [Volume fraction] 28 % Low 35.0 - 47.0 % [facility] Hemoglobin (Bld) [Mass/Vol] 8.8 g/dL Low 11.7 - 16.0 g/dL [facility] Interpretation and review of laboratory results Abnormal [facility] MCH (RBC) [Entitic mass] 31.7 pg 26. 0 - 34.0 pg [facility] MCHC (RBC) [Mass/Vol] 31.4 % 30.5 - 36.0 % [facility] MCV (RBC) [Entitic vol] 100.7 fL High 77.0 - 99.0 fL [facility] Platelet mean volume (Bld) [Entitic vol] 10.8 fL 9.0 - 12.7 fL [facility] Platelets (Bld) [#/Vol] 105 10*3/uL Low 140 - 440 10*3/uL [facility] RBC (Bld) [#/Vol] 2.78 10*6/uL Low 3.80 - 5.2 0 10*6/uL [facility] WBC (Bld) [#/Vol] 11.1 10*3/uL High 3.6 - 10.7 10*3/uL [facility] CBC WITH AUTO DIFFERENTIALon 06-28-2024 Erythrocyte distribution width (RBC) [Ratio] 15.6 % High 11.5-15.0 [facility] Comment on above: Performed By: #### L [id number], [id number] ####Attendant Campground: RUTH ANN BRAGG ([phone])[facility] [place] [address] Hematocrit (Bld) [Volume fraction] 28.0 % Low 35.0-47.0 [facility] Comment on above: Performed By: #### L [id number], [id number] ####Attendant Campground: RUTH ANN BRAGG ([phone])[facility] [place] [address] Hemoglobin (Bld) [Mass/Vol] 8.8 g/dL Low 11.7-16.0 [facility] Comment on above: Performed By: #### L [id number], [id number] ####Attendant Campground: RUTH ANN BRAGG ([phone])[facility] [place] [address] MCH (RBC) [Entitic mass] 31.7 pg Normal 26.0-34.0 [facility] Comment on above: Performed By: #### L [id number], [id number] ####Attendant Campground: RUTH ANN BRAGG ([phone])[facility] [place] [address] MCHC 31.4 % Normal 30.5-36.0 [facility] Comment on above: Performed By: #### L [id number], [id number] ####Attendant Campground: RUTH ANN BRAGG ([phone])[facility] ([facility])[address] MCV (RBC) [Entitic vol] 100.7 fL High 77.0-99.0 S [facility] Comment on above: Performed By: #### L SD8833, [id number] ####Attendant Campground: RUTH ANN BRAGG ([phone])[facility] ([facility])[address] Platelet mean volume (Bld) [Entitic vol] 10.8 fL Normal 9.0-12.7 [facility] Comment on above: Performed By: #### L [id number], [id number] ####Attendant Campground: RUTH ANN BRAGG ([phone])[facility] [place] ([facility])[address] Platelets (Bld) [#/Vol] 105 10*3/uL Low 140-440 [facility] Comment on above: Performed By: #### L [id number], [id number] ####Attendant Campground: RUTH ANN BRAGG ([phone])[facility] [place] ([facility])[address] RBC (Bld) [#/Vol] 2.78 10*6/uL Low 3.80-5.20 [facility] Comment on above: Performed By: #### L [id number], [id number] ####Attendant Campground: RUTH ANN BRAGG ([phone])[facility] ([facility])[address] WBC (Bld) [#/Vol] 11.1 10*3/uL High 3.6-10.7 [facility] Comment on above: Performed By: #### L DT1657, [id number] ####Attendant Campground: RUTH ANN BRAGG ([phone])[facility] ([facility])[address] COMPREHENSIVE METABOLIC PANE Smith 06-28-2024 Albumin [Mass/Vol] 3.0 g/dL Low 3.5-5.0 [facility] Comment on above: Performed By: #### Jayy AB17, [id number], [id number] ####Attendant Campground: RUTH ANN BRAGG ([phone])[facility])[address] ALP [Catalytic activity/Vol] 85 U/L Normal 38-126 [facility] Comment on above: Performed By: #### L AB17, [id number], [id number] ####Attendant Campground: RUTH ANN BRAGG ([phone])[facility] ([facility])[address] ALT [Catalytic activity/Vol] 24 U/L Normal 0-34 [facility] Comment on above: Performed By: #### Jayy AB17, [id number], [id number] ####Attendant Campground: RUTH ANN BRAGG ([phone])[facility] ([facility])[address] Anion gap [Moles/Vol] 7 mmol/L Normal 3-13 [facility] Comment on above: Performed By: #### Jayy AB17, RRM738, MNP019 ####Attendant Campground: RUTH ANN BRAGG ([phone])[facility] ([facility])[address] AST [Catalytic activity/Vol] 51 U/L High 15-46 [facility] Comment on above: Performed By: #### L AB17, FEA552, [id number] ####Attendant Campground: RUTH ANN BRAGG ([phone])[facility])[address] [place] [address] [place] Bilirubin [Mass/Vol] 0.9 mg/dL Normal 0.2-1.3 [facility] Comment on above: Performed By: #### L AB17, IIT301, BHO270 ####Attendant Campground: RUTH ANN BRAGG ([phone])[facility] ([facility])[address] Calcium [Mass/Vol] 9.2 mg/dL Normal 8.4-10.4 [facility] Comment on above: Performed By: #### L AB17, [id number], [id number] ####Attendant Campground: RUTH ANN BRAGG ([phone])[facility] ([facility])[address] Chloride [Moles/Vol] 120 mmol/L High 98-107 [facility] Comment on above: Performed By: #### L AB17, HFL041, EPT306 ####Attendant Campground: RUTH ANN BRAGG ([phone])[facility])[address] CO2 [Moles/Vol] 19 mmol/L Low 22-[address] [facility] Comment on above: Performed By: #### Jayy ALLRED17, IGK238, CBO949 ####Attendant Campground: RUTH ANN BRAGG ([phone])[facility] ([facility])[address] Creatinine [Mass/Vol] 1.43 mg/dL High 0.52-1.04 [facility] Comment on above: Performed By: #### L AB17, [id number], [id number] ####Attendant Campground: RUTH ANN BRAGG ([phone])[facility] ([facility])[address] [place] [address] [place] GLOMERULAR FILTRATION RATE ML/MIN/1.73 SQ M.PREDICTED 37.6 mL/min/1.73m*2 Low >60.0 [facility] Comment on above: Result Comment: Calc ulation based on the Chronic Kidney Disease Epidemiology Collaboration (CKD-EPI) equation refit without adjustment for race Performed By: #### L AB17, BNO401, THI914 ####Attendant Campground: RUTH ANN BRAGG ([phone])[facility] [place] [address] [place] Glucose [Mass/Vol] 163 mg/dL High 70-100 [facility] Comment on above: Performed By: #### L AB17, DMT466, HIL126 ####Attendant Campground: RUTH ANN BRAGG ([phone])[facility] ([facility])[address] Potassium [Moles/Vol] 3.6 mmol/L Normal 3.5-5.1 [facility] Comment on above: Performed By: #### L AB17, IVB699, [id number] ####Attendant Campground: RUTH ANN BRAGG ([phone])[facility] ([facility])[address] Protein [Mass/Vol] 6.0 g/dL Low 6.3-8.2 [facility] Comment on above: Performed By: #### L AB17, PFI882, NTE642 ####Attendant Campground: RUTH ANN BRAGG ([phone])[facility] ([facility])[address] Sodium [Moles/Vol] 146 mmol/L High 135-145 [facility] Comment on above: Performed By: #### L AB17, KCI839, TCZ640 ####Attendant Campground: RUTH ANN BRAGG ([phone])[facility] ([facility])[address] Urea nitrogen [Mass/Vol] 51 mg/dL High 7-17 [facility] Comment on above: Performed By: #### L AB17, SHG808, MWH074 ####Attendant Campground: RUTH ANN BRAGG ([phone])[facility] ([facility])[address] [place] [address] Calcium.ionized [Moles/Vol]o n 06-28-2024 Calcium.ionized (Bld) [Moles/Vol] 4.7 mg/dL 4.30 - 5.20 mg/dL [facility] Interpretation and review of laboratory results Abnormal [facility] PH, IONIZED CALCIUM 7.5 High 7.31 - 7.46 [facility] Comprehensive metabolic 1998 panelon 06-28-2024 Albumin [Mass/Vol] 3 g/dL Low 3.5 - 5.0 g/dL [facility] ALP [Catalytic activity/Vol] 85 U/L 38 - 126 U/L [facility] ALT [Catalytic activity/Vol] 24 U/L 0 - 34 U/L [facility] Anion gap [Moles/Vol] 7 mmol/L 3 - 13 mmol/L [facility] AST [Catalytic activity/Vol] 51 U/L High 15 - 46 U/L [facility] Bilirubin [Mass/Vol] 0.9 mg/dL 0.2 - 1 .3 mg/dL [facility] Calcium [Mass/Vol] 9.2 mg/dL 8.4 - 10. 4 mg/dL [facility] Chloride [Moles/Vol] 120 mmol/L High 98 - 10 7 mmol/L [facility] CO2 [Moles/Vol] 19 mmol/L Low 22 - 30 mmol/L [facility] Creatinine [Mass/Vol] 1.43 mg/dL High 0.52 - 1.04 mg/dL [facility] GFR/1.73 sq M.predicted (S/P/Bld) [Vol rate/Area] 37.6 mL/min Low - PINF [facility] Glucose [Mass/Vol] 163 mg/dL High 70 - 100 mg/dL [facility] Interpretation and review of laboratory results Abnormal [facility] th Potassium [Moles/Vol] 3.6 mmol/L 3.5 - 5.1 mmol/L [facility] Protein [Mass/Vol] 6 g/dL Low 6.3 - 8.2 g/dL [facility] Sodium [Moles/Vol] 146 mmol/L High 135 - 145 mmol/L [facility] Urea nitrogen [Mass/Vol] 51 mg/dL High 7 - 17 mg/dL [facility] Consulton 06-28-2024 Consult Normal [facility] HEMOGLOBIN AND HEMATOCRIT, B LOODon 06-28-2024 Hematocrit (Bld) [Volume fraction] 27.4 % Low 35.0-47.0 [facility] Comment on above: Performed By: #### [id number] ####Attendant [employer]: RUTH ANN BRAGG ([phone])[facility] CENTEROmi ([id number] SMITH [place] [address] Hemoglobin (Bld) [Mass/Vol] 8.5 g/dL Low 11.7-16.0 [facility] Comment on above: Performed By: #### L [id number] ####Attendant Campground: RUTH ANN BRAGG ([phone])[facility] Hematocrit (Bld) [Volume fraction] 28.6 % Low 35.0-47.0 [facility] Comment on above: Performed By: #### L [id number] ####Attendant Campground: RUTH ANN BRAGG ([phone])[facility] ([facility] Hemoglobin (Bld) [Mass/Vol] 9.0 g/dL Low 11.7-16.0 [facility] Comment on above: Performed By: #### L [id number] ####Attendant Campground: RUTH ANN BRAGG ([phone])[facility] Hematocrit (Bld) [Volume fraction] 28.1 % Low 35.0-47.0 [facility] Comment on above: Performed By: #### L [id number] ####Attendant Campground: RUTH ANN BRAGG ([phone])[facility] Hemoglobin (Bld) [Mass/Vol] 8.9 g/dL Low 11.7-16.0 [facility] Comment on above: Performed By: #### L [id number] ####Attendant Campground: RUTH ANN BRAGG ([phone])[facility] ([facility] Hemoglobin (Bld) [Mass/Vol]O rdered By: Jayashree Naranjo on 06-28-2024 Hematocrit (Bld) [Volume fraction] 27.4 % Low 35.0 - 47.0 % [facility] Interpretation and review of laboratory results Abnormal [facility] Hemoglobin (Bld) [Mass/Vol]o n 06-28-2024 Hematocrit (Bld) [Volume fraction] 28.6 % Low 35.0 - 47.0 % [facility] Interpretation and review of laboratory results Abnormal [facility] Hematocrit (Bld) [Volume fraction] 28.1 % Low 35.0 - 47.0 % [facility] Interpretation and review of laboratory results Abnormal [facility] Laboratory - Chemistry and C hemistry - challengeon 06-28-2024 Glucose [Mass/Vol] 208 mg/dL High 70 - 100 mg/dL [facility] Glucose [Mass/Vol] 211 mg/dL High 70 - 100 mg/dL [facility] Glucose [Mass/Vol] 208 mg/dL High 70 - 100 mg/dL [facility] Glucose [Mass/Vol] 170 mg/dL High 70 - 100 mg/dL [facility] Magnesium [Mass/Vol] 2.1 mg/dL 1.6 - 2 .3 mg/dL [facility] Ammonia (P) [Moles/Vol] 27 umol/L 9 - 30 umol/L [facility] Laboratory - Hematology and Cell countsOrdered By: Jayashree Naranjo on 06-28-2024 Hemoglobin (Bld) [Mass/Vol] 8.5 g/dL Low 11.7 - 16.0 g/dL [facility] Laboratory - Hematology and Cell countson 06-28-2024 Hemoglobin (Bld) [Mass/Vol] 9 g/dL Low 11.7 - 16.0 g/dL [facility] Hemoglobin (Bld) [Mass/Vol] 8.9 g/dL Low 11.7 - 16.0 g/dL [facility] Eosinophils (Bld) [#/Vol] 0.1 10*3/uL 0. 0 - 0.5 10*3/uL [facility] Eosinophils/100 WBC (Bld) 1 % 0 - 6 % [facility] Lymphocytes (Bld) [#/Vol] 1.1 10*3/uL 1. 0 - 4.3 10*3/uL [facility] Lymphocytes/100 WBC (Bld) 10 % Low 15 - 45 % [facility] Monocytes (Bld) [#/Vol] 1.3 10*3/uL High 0.0 - 0.9 10*3/uL [facility] Monocytes/100 WBC (Bld) 12 % 5 - 13 % [facility] Neutrophils (Bld) [#/Vol] 8.7 10*3/uL High 1. 8 - 7.5 10*3/uL [facility] RBC morphology finding Nom (Bld) Normal [facility] Segmented neutrophils/100 WBC (Bld) 78 % 38 - 82 % [facility] Laboratory - Microbiology an d Antimicrobial susceptibilityOrdered By: Christie Avila on 06-28-2024 Bacteria identified Cx Nom (U) >100,000 CFU/mL Escherichia coli Abnormal [facility] MAGNESIUMon 06-28-2024 Magnesium [Mass/Vol] 2.1 mg/dL Normal 1.6-2.3 [facility] Comment on above: Performed By: #### L AB17, [id number], [id number] ####Attendant Campground: RUTH ANN BRAGG ([phone])[facility] ([facility])[address] MANUAL DIFFERENTIAL (CELLAVI KRISTIAN)on 06-28-2024 BAND NEUTROPHILS TOTAL PER COUNTED LEUKOCYTES BY MANUAL COUNT Normal [facility] Comment on above: Performed By: #### L [id number], [id number] ####Attendant Campground: RUTH ANN BRAGG ([phone])[facility] ([facility])[address] BASOPHILS TOTAL PER COUNTED LEUKOCYTES BY MANUAL COUNT Normal [facility] Comment on above: Performed By: #### L [id number], [id number] ####Attendant Campground: RUTH ANN BRAGG ([phone])[facility] ([facility])[address] BLASTS TOTAL PER COUNTED LEUKOCYTES BY MANUAL COUNT Normal [facility] Comment on above: Performed By: #### L [id number], [id number] ####Attendant Campground: RUTH ANN BRAGG ([phone])[facility] ([facility])[address] [place] [address] [place] EOSINOPHILS (10*3/UL) IN BLOOD-CELLAVISION 0.1 10*3/uL Normal 0.0-0.5 [facility] Comment on above: Performed By: #### L [id number], [id number] ####Attendant Campground: RUTH ANN [phone])[facility] (SBHLAB)[address] [place] [address] [place] EOSINOPHILS TOTAL PER COUNTED LEUKOCYTES BY MANUAL COUNT 1 Normal 0-1 [facility] Comment on above: Performed By: #### L [id number], [id number] ####Attendant Campground: RUTH ANN BRAGG ([phone])[facility] ([facility])[address] [place] [address] [place] EOSINOPHILS/100 LEUKOCYTES IN BLOOD-CELLAVISION 1 % Normal 0-6 [facility] Comment on above: Performed By: #### L [id number], [id number] ####Attendant Campground: RUTH ANN BRAGG ([phone])[facility] ([facility])[address] [place] [address] [place] LYMPHOCYTES (10*3/UL) IN BLOOD-CELLAVISION 1.1 10*3/uL Normal 1.0-4.3 [facility] Comment on above: Performed By: #### L [id number], [id number] ####Attendant Campground: RUTH ANN BRAGG ([phone])[facility] ([facility])[address] [place] [address] [place] LYMPHOCYTES TOTAL PER COUNTED LEUKOCYTES BY MANUAL COUNT 10 Normal [facility] Comment on above: Performed By: #### L [id number], [id number] ####Attendant Campground: RUTH ANN BRAGG ([phone])[facility] ([facility])[address] [place] [address] [place] LYMPHOCYTES/100 LEUKOCYTES IN BLOOD-CELLAVISION 10 % Low 15-45 [facility] Comment on above: Performed By: #### L [id number], [id number] ####Attendant Campground: RUTH ANN BRAGG ([phone])[facility] ([facility])[address] [place] [address] [place] METAMYELOCYTES TOTAL PER COUNTED LEUKOCYTES BY MANUAL COUNT Normal [facility] Comment on above: Performed By: #### L [id number], [id number] ####Attendant Campground: RUTH ANN BRAGG ([phone])[facility] (SBHLAB)[address] [place] [address] [place] MONOCYTES (10*3/UL) IN BLOOD-CELLAVISION 1.3 10*3/uL High 0.0-0.9 [facility] Comment on above: Performed By: #### L [id number], [id number] ####Attendant Campground: RUTH ANN PRITCHARDCER ([phone])[facility] (SBHL[facility])[address] MONOCYTES TOTAL PER COUNTED LEUKOCYTES BY MANUAL COUNT 12 Normal [facility] Comment on above: Performed By: #### L [id number], [id number] ####Attendant Campground: RUTH ANN BRAGG ([phone])[facility] (SBHLAB)[address] [place] [address] [place] MONOCYTES/100 LEUKOCYTES IN BLOOD-TOMMIE 12 % Normal -13 [facility] Comment on above: Performed By: #### L [id number], [id number] ####Attendant Campground: RUTH ANN BRAGG ([phone])[facility] ([facility])[address] MYELOCYTES COUNTED BY MANUAL COUNT [facility] Comment on above: Performed By: #### L [id number], [id number] ####Attendant Campground: RUTH ANN BRAGG ([phone])[facility] ([facility])[address] [place] [address] [place] NEUTROPHILS TOTAL PER COUNTED LEUKOCYTES BY MANUAL COUNT 81 Normal [facility] Comment on above: Performed By: #### L [id number], [id number] ####Attendant Campground: RUTH ANN PRITCHARDCER ([phone])[facility] (SBHLAB)[address] [place] [address] [place] PROMYELOCYTES TOTAL PER COUNTED LEUKOCYTES BY MANUAL COUNT [facility] Comment on above: Performed By: #### L [id number], [id number] ####Attendant Campground: RUTH ANN PRITCHARDCER ([phone])[facility] ([facility]HL[facility])[address] RBC MORPHOLOGY IN BLOOD Normal Normal S [facility] Comment on above: Performed By: #### L [id number], [id number] ####Attendant Campground: RUTH ANN BRAGG ([phone])[facility] ([facility])[address] SEGMENTED NEUTROPHILS (10*3/UL) IN BLOOD-CELLAVISION 8.7 10*3/uL High 1.8-7.5 [facility] Comment on above: Performed By: #### L [id number], [id number] ####Attendant Campground: RUTH ANN BRAGG ([phone])[facility] ([facility])[address] SEGMENTED NEUTROPHILS/100 LEUKOCYTES-CE 78 % Normal 38-82 [facility] Comment on above: Performed By: #### L [id number], [id number] ####Attendant Campground: RUTH ANN BRAGG ([phone])[facility] ([facility])[address] UNCLASSIFIED CELLS TOTAL PER COUNTED LEUKOCYTES BY MANUAL COUNT [facility] Comment on above: Performed By: #### L [id number], [id number] ####Attendant Campground: RUTH ANN BRAGG ([phone])[facility] ([facility])[address] VARIANT LYMPHOCYTES TOTAL PER COUNTED LEUKOCYTES BY MANUAL COUNT [facility] Comment on above: Performed By: #### L [id number], [id number] ####Attendant Campground: RUTH ANN BRAGG ([phone])[facility] ([facility])[address] No Panel Informationon 06-28 Interpretation and review of laboratory results Abnormal [facility] Interpretation and review of laboratory results Abnormal [facility] Interpretation and review of laboratory results Abnormal [facility] Eosinophils Manual 1 0 - 1 [facility] Interpretation and review of laboratory results Abnormal [facility] Lymphocytes Manual 10 [facility] Monocytes Manual 12 [facility] Neutrophils Manual 81 [facility] Interpretation and review of laboratory results Abnormal [facility] Interpretation and review of laboratory results Normal [facility] Interpretation and review of laboratory results Normal [facility] PHOSPHORUSon 06-28-2024 Phosphate [Mass/Vol] 2.9 mg/dL Normal 2.5-4.5 [facility] Comment on above: Performed By: #### L AB17, [id number], [id number] ####Attendant Campground: RUTH ANN BRAGG ([phone])[facility] ([facility])[address] [place] [address] [place] Phosphate [Moles/Vol]on 06-09 Phosphate [Mass/Vol] 2.9 mg/dL 2.5 - 4 .5 mg/dL [facility] Progress Noteon 06-28-2024 Progress Note Normal [facility] Progress Note Normal [facility] 30on 06-27-2024 30 Normal [facility] 30 Normal [facility] [id number] 06-27-2024 [id number] Pt still lethargic and only arousable to noxious stimuli. Awaiting Palliative Care Cons prior to IA being completed. TCC will continue to follow. Normal [facility] AMMONIAon 06-27-2024 Ammonia (P) [Moles/Vol] 48 umol/L High 9-30 S [facility] Comment on above: Performed By: #### L AB47 ####Attendant Campground: RUTH ANN BRAGG ([phone])[facility] ([facility])[address] [place] [address] [place] CALCIUM, IONIZEDon CALCIUM IONIZED 4.70 mg/dL Normal 4.30-5.[address] [facility] Comment on above: Performed By: #### L AB54 ####Attendant Campground: RUTH ANN BRAGG ([phone])[facility] ([facility])[address] PH, IONIZED CALCIUM 7.41 Normal 7.31-7.46 [facility] Comment on above: Performed By: #### L AB54 ####Attendant Campground: RUTH ANN BRAGG ([phone])[facility] ([facility])[address] CBC W Auto Differential pane l (Bld)Ordered By: Osiel White on 06-27-2024 Erythrocyte distribution width (RBC) [Ratio] 15.3 % High 11.5 - 15.0 % [facility] Hematocrit (Bld) [Volume fraction] 27.1 % Low 35.0 - 47.0 % [facility] [employer] Hemoglobin (Bld) [Mass/Vol] 8.6 g/dL Low 11.7 - 16.0 g/dL [facility] MCH (RBC) [Entitic mass] 31 pg 26. 0 - 34.0 pg [facility] MCHC (RBC) [Mass/Vol] 31.7 % 30.5 - 36.0 % [facility] [employer] MCV (RBC) [Entitic vol] 97.8 fL 77.0 - 99.0 fL [facility] [employer] Platelet mean volume (Bld) [Entitic vol] 11.2 fL 9.0 - 12.7 fL [facility] [employer] Platelets (Bld) [#/Vol] 122 10*3/uL Low 140 - 440 10*3/uL [facility] RBC (Bld) [#/Vol] 2.77 10*6/uL Low 3.80 - 5.2 0 10*6/uL [facility] [employer] WBC (Bld) [#/Vol] 11.9 10*3/uL High 3.6 - 10.7 10*3/uL [facility] CBC WITH AUTO DIFFERENTIALon 06-27-2024 Erythrocyte distribution width (RBC) [Ratio] 15.3 % High 11.5-15.0 [facility] Comment on above: Performed By: #### L [id number], [id number] ####Attendant Campground: RUTH ANN BRAGG ([phone])[facility] ([facility])[address] Hematocrit (Bld) [Volume fraction] 27.1 % Low 35.0-47.0 [facility] Comment on above: Performed By: #### L [id number], [id number] ####Attendant Campground: RUTH ANN BRAGG ([phone])[facility] ([facility])[address] Hemoglobin (Bld) [Mass/Vol] 8.6 g/dL Low 11.7-16.0 [facility] Comment on above: Performed By: #### L [id number], [id number] ####Attendant Campground: RUTH ANN BRAGG ([phone])[facility]ALTH[facility]ITAL[facility] (SBHLAB)[address] MCH (RBC) [Entitic mass] 31.0 pg Normal 26.0-34.0 [facility] Comment on above: Performed By: #### L [id number], [id number] ####Attendant Campground: RUTH ANN BRAGG ([phone])[facility] (SBHLAB)[address] MCHC 31.7 % Normal 30.5-36.0 [facility] Comment on above: Performed By: #### L [id number], [id number] ####Attendant Campground: RUTH ANN BRAGG ([phone])[facility] (SBHLAB)[address] MCV (RBC) [Entitic vol] 97.8 fL Normal 77.0-99.0 S [facility] Comment on above: Performed By: #### L [id number], [id number] ####Attendant Campground: RUTH ANN BRAGG ([phone])[facility]ALTHRyan [facility] (SBHLAB)[address] Platelet mean volume (Bld) [Entitic vol] 11.2 fL Normal 9.0-12.7 [facility] Comment on above: Performed By: #### L [id number], [id number] ####Attendant Campground: RUTH ANN BRAGG ([phone])[facility]ALTHRyan SANDERSN (SBHLAB)[address] Platelets (Bld) [#/Vol] 122 10*3/uL Low 140-440 [facility] Comment on above: Performed By: #### L [id number], [id number] ####Attendant Campground: RUTH ANN BRAGG ([phone])[facility] (SBHLAB)[address] RBC (Bld) [#/Vol] 2.77 10*6/uL Low 3.80-5.20 [facility] Comment on above: Performed By: #### L [id number], [id number] ####Attendant Campground: RUTH ANN BRAGG ([phone])[facility] (SBHLAB)[address] WBC (Bld) [#/Vol] 11.9 10*3/uL High 3.6-10.7 [facility] Comment on above: Performed By: #### L [id number], [id number] ####Attendant Campground: RUTH ANN BRAGG ([phone])[facility] (SBHLAB)[address] COMPREHENSIVE METABOLIC PANE Smith 06-27-2024 Albumin [Mass/Vol] 3.0 g/dL Low 3.5-5.0 [facility] Comment on above: Performed By: #### L AB113, [id number], LAB17 ####Attendant Campground: RUTH ANN BRAGG ([phone])[facility]ALTH[facility] (SBHLAB)[address] ALP [Catalytic activity/Vol] 64 U/L Normal 38-126 [facility] Comment on above: Performed By: #### L AB113, [id number], LAB17 ####Attendant Campground: RUTH ANN BRAGG ([phone])[facility] (SBHLAB)[address] ALT [Catalytic activity/Vol] 20 U/L Normal 0-34 [facility] Comment on above: Performed By: #### L AB113, [id number], LAB17 ####Attendant Campground: RUTH ANN BRAGG ([phone])[facility] (SBHLAB)[address] Anion gap [Moles/Vol] 7 mmol/L Normal 3-13 [facility] Comment on above: Performed By: #### L AB113, [id number], LAB17 ####Attendant Campground: RUTH ANN BRAGG ([phone])[facility]ALTHRyan S[facility]ERSOmi (SBHLAB)[address] AST [Catalytic activity/Vol] 41 U/L Normal 15-46 [facility] Comment on above: Performed By: #### L AB113, [id number], LAB17 ####Attendant Campground: RUTH ANN BRAGG ([phone])[facility]ALTHRyan [facility]ERSO[facility] (SBHLAB)[address] Bilirubin [Mass/Vol] 0.9 mg/dL Normal 0.2-1.3 [facility] Comment on above: Performed By: #### L ABMara, [id number], LAB17 ####Attendant Campground: RUTH ANN BRAGG ([phone])[facility]ALTHRyan [facility]ERSO[facility] (HLAB)[address] Calcium [Mass/Vol] 9.2 mg/dL Normal 8.4-10.4 [facility] Comment on above: Performed By: #### L ABMara, [id number], LAB17 ####Attendant Campground: RUTH ANN BRAGG ([phone])[facility]ALTHRyan [facility]ERYMARGARETN (SBHLAB)[address] [place] [address] [place] Chloride [Moles/Vol] 120 mmol/L High 98-107 [facility] Comment on above: Performed By: #### L AB113, [id number], LAB17 ####Attendant Campground: RUTH ANN BRAGG ([phone])[facility]ALTHRyan [facility]ERSN (SBHLAB)[address] [place] [address] [place] CO2 [Moles/Vol] 20 mmol/L Low 22-30 [facility] Comment on above: Performed By: #### L AB113, [id number], LAB17 ####Attendant Campground: RUTH ANN BRAGG ([phone])[facility] (SB[facility])[address] Creatinine [Mass/Vol] 1.59 mg/dL High 0.52-1.04 [facility] Comment on above: Performed By: #### L AB113, IBS241, LAB17 ####Attendant Campground: RUTH ANN BRAGG ([phone])[facility] [place] ([facility])[address] GLOMERULAR FILTRATION RATE ML/MIN/1.73 SQ M.PREDICTED 33.1 mL/min/1.73m*2 Low >60.0 [facility] Comment on above: Result Comment: Calc ulation based on the Chronic Kidney Disease Epidemiology Collaboration (CKD-EPI) equation refit without adjustment for race Performed By: #### Jayy ABMara, [id number], LAB17 ####Attendant Campground: RUTH ANN BRAGG ([phone])[facility] [place] ([facility])[address] Glucose [Mass/Vol] 159 mg/dL High 70-100 [facility] Comment on above: Performed By: #### Jayy AB113, [id number], LAB17 ####Attendant Campground: RUTH ANN BRAGG ([phone])[facility]ALTHRyan [facility] (SBHLAB)[address] [place] [address] [place] Potassium [Moles/Vol] 3.3 mmol/L Low 3.5-5.1 [facility] Comment on above: Performed By: #### L AB113, [id number], LAB17 ####Attendant Campground: RUTH ANN BRAGG ([phone])[facility] (SBHLAB)[address] [place] [address] [place] Protein [Mass/Vol] 6.0 g/dL Low 6.3-8.2 [facility] Comment on above: Performed By: #### L AB113, [id number], LAB17 ####Attendant Campground: RUTH ANN BRAGG ([phone])[facility] [place] ([facility])[address] Sodium [Moles/Vol] 147 mmol/L High 135-145 [facility] Comment on above: Performed By: #### L AB113, [id number], LAB17 ####Attendant Campground: RUTH ANN SABASWILTON ([phone])[facility] (SBHLAB)[address] Urea nitrogen [Mass/Vol] 51 mg/dL High 7-17 [facility] Comment on above: Performed By: #### L AB113, [id number], LAB17 ####Attendant Campground: RUTH ANN OBREGONWILTON ([phone])[facility] (SBHLAB)[address] Calcium.ionized [Moles/Vol]o n 06-27-2024 Calcium.ionized (Bld) [Moles/Vol] 4.7 mg/dL 4.30 - 5.20 mg/dL [facility] Interpretation and review of laboratory results Normal [facility] PH, IONIZED CALCIUM 7.41 7.31 - 7.46 [facility] Comprehensive metabolic 1998 panelon 06-27-2024 Albumin [Mass/Vol] 3 g/dL Low 3.5 - 5.0 g/dL [facility] ALP [Catalytic activity/Vol] 64 U/L 38 - 126 U/L [facility] ALT [Catalytic activity/Vol] 20 U/L 0 - 34 U/L [facility] Anion gap [Moles/Vol] 7 mmol/L 3 - 13 mmol/L [facility] AST [Catalytic activity/Vol] 41 U/L 15 - 46 U/L [facility] Bilirubin [Mass/Vol] 0.9 mg/dL 0.2 - 1 .3 mg/dL [facility] Calcium [Mass/Vol] 9.2 mg/dL 8.4 - 10. 4 mg/dL [facility] Chloride [Moles/Vol] 120 mmol/L High 98 - 10 7 mmol/L [facility] CO2 [Moles/Vol] 20 mmol/L Low 22 - 30 mmol/L [facility] Creatinine [Mass/Vol] 1.59 mg/dL High 0.52 - 1.04 mg/dL [facility] GFR/1.73 sq M.predicted (S/P/Bld) [Vol rate/Area] 33.1 mL/min Low - PINF [facility] Glucose [Mass/Vol] 159 mg/dL High 70 - 100 mg/dL [facility] Interpretation and review of laboratory results Abnormal [facility] Potassium [Moles/Vol] 3.3 mmol/L Low 3.5 - 5.1 mmol/L [facility] Protein [Mass/Vol] 6 g/dL Low 6.3 - 8.2 g/dL [facility] Sodium [Moles/Vol] 147 mmol/L High 135 - 145 mmol/L [facility] Urea nitrogen [Mass/Vol] 51 mg/dL High 7 - 17 mg/dL [facility] HEMOGLOBIN AND HEMATOCRIT, B [facility] 06-27-2024 Hematocrit (Bld) [Volume fraction] 27.7 % Low 35.0-47.0 [facility] Comment on above: Performed By: #### L [id number] ####Attendant Campground: RUTH ANN RBAGG ([phone])[facility] [place] [address] Hemoglobin (Bld) [Mass/Vol] 8.7 g/dL Low 11.7-16.0 [facility] Comment on above: Performed By: #### L [id number] ####Attendant Campground: RUTH ANN BRAGG ([phone])[facility] ([facility])[address] [place] [address] Hematocrit (Bld) [Volume fraction] 28.1 % Low 35.0-47.0 [facility] Comment on above: Performed By: #### L [id number] ####Attendant Campground: RUTH ANN BRAGG ([phone])[facility] ([facility])[address] Hemoglobin (Bld) [Mass/Vol] 9.0 g/dL Low 11.7-16.0 [facility] Comment on above: Performed By: #### L [id number] ####Attendant Campground: RUTH ANN BRAGG ([phone])[facility] ([facility])[address] Hematocrit (Bld) [Volume fraction] 29.0 % Low 35.0-47.0 [facility] Comment on above: Performed By: #### L [id number] ####Attendant Campground: RUTH ANN BRAGG ([phone])[facility] ([facility])[address] Hemoglobin (Bld) [Mass/Vol] 9.3 g/dL Low 11.7-16.0 [facility] Comment on above: Performed By: #### L [id number] ####Attendant Campground: RUTH ANN BRAGG ([phone])[facility] [place] ([facility])[address] Hematocrit (Bld) [Volume fraction] 27.1 % Low 35.0-47.0 [facility] Comment on above: Performed By: #### L [id number] ####Attendant Campground: RUTH ANN BRAGG ([phone])[facility] [place] ([facility])[address] Hemoglobin (Bld) [Mass/Vol] 8.7 g/dL Low 11.7-16.0 [facility] Comment on above: Performed By: #### L [id number] ####Attendant Campground: RUTH ANN BRAGG ([phone])[facility] [place] ([facility])[address] Hemoglobin (Bld) [Mass/Vol]o n 06-27-2024 Hematocrit (Bld) [Volume fraction] 27.7 % Low 35.0 - 47.0 % [facility] Interpretation and review of laboratory results Abnormal [facility] Hematocrit (Bld) [Volume fraction] 28.1 % Low 35.0 - 47.0 % [facility] Interpretation and review of laboratory results Abnormal [facility] Hematocrit (Bld) [Volume fraction] 29 % Low 35.0 - 47.0 % [facility] Interpretation and review of laboratory results Abnormal [facility] Hematocrit (Bld) [Volume fraction] 27.1 % Low 35.0 - 47.0 % [facility] Interpretation and review of laboratory results Abnormal [facility] - Chemistry and C hemistry - challengeon 06-27-2024 Glucose [Mass/Vol] 188 mg/dL High 70 - 100 mg/dL [facility] Glucose [Mass/Vol] 159 mg/dL High 70 - 100 mg/dL [facility] Glucose [Mass/Vol] 186 mg/dL High 70 - 100 mg/dL [facility] Glucose [Mass/Vol] 168 mg/dL High 70 - 100 mg/dL [facility] Magnesium [Mass/Vol] 2 mg/dL 1.6 - 2 .3 mg/dL [facility] Ammonia (P) [Moles/Vol] 48 umol/L High 9 - 30 umol/L [facility] Glucose [Mass/Vol] 195 mg/dL High 70 - 100 mg/dL [facility] Laboratory - Hematology and Cell countson 06-27-2024 Hemoglobin (Bld) [Mass/Vol] 8.7 g/dL Low 11.7 - 16.0 g/dL [facility] Hemoglobin (Bld) [Mass/Vol] 9 g/dL Low 11.7 - 16.0 g/dL [facility] Hemoglobin (Bld) [Mass/Vol] 9.3 g/dL Low 11.7 - 16.0 g/dL [facility] Anisocytosis Ql (Bld) Slight Abnormal (none) [facility] Lymphocytes (Bld) [#/Vol] 0.6 10*3/uL Low 1. 0 - 4.3 10*3/uL [facility] Lymphocytes/100 WBC (Bld) 5 % Low 15 - 45 % [facility] Monocytes (Bld) [#/Vol] 0.7 10*3/uL 0.0 - 0.9 10*3/uL [facility] Monocytes/100 WBC (Bld) 6 % 5 - 13 % [facility] Neutrophils (Bld) [#/Vol] 10.6 10*3/uL High 1. 8 - 7.5 10*3/uL [facility] Ovalocytes LM Ql (Bld) Slight Abnormal (none) [facility] Poikilocytosis LM Ql (Bld) Slight Abnormal (none) [facility] RBC morphology finding Nom (Bld) abnormal [facility] Segmented neutrophils/100 WBC (Bld) 89 % High 38 - 82 % [facility] Target cells LM Ql (Bld) Slight Abnormal (none) [facility] Hemoglobin (Bld) [Mass/Vol] 8.7 g/dL Low 11.7 - 16.0 g/dL [facility] MAGNESIUMon 06-27-2024 Magnesium [Mass/Vol] 2.0 mg/dL Normal 1.6-2.3 [facility] Comment on above: Performed By: #### L [id number], [id number], [id number] ####Attendant Campground: RUTH ANN BRAGG ([phone])[facility] [place] ([facility])[address] MANUAL DIFFERENTIAL (CELLAVI KRISTIAN)on 06-27-2024 ANISOCYTOSIS PRESENCE IN BLOOD BY LIGHT MICROSCOPY Slight Abnormal (none) [facility] Comment on above: Performed By: #### L [id number], [id number] ####Attendant Campground: RUTH ANN BRAGG ([phone])[facility] [place] ([facility])[address] BAND NEUTROPHILS TOTAL PER COUNTED LEUKOCYTES BY MANUAL COUNT Normal [facility] Comment on above: Performed By: #### L [id number], [id number] ####Attendant Campground: RUTH ANN BRAGG ([phone])[facility] [place] ([facility])[address] [place] [address] [place] BASOPHILS TOTAL PER COUNTED LEUKOCYTES BY MANUAL COUNT Normal [facility] Comment on above: Performed By: #### L [id number], [id number] ####Attendant Campground: RUTH ANN BRAGG ([phone])[facility] [place] ([facility])[address] [place] [address] [place] BLASTS TOTAL PER COUNTED LEUKOCYTES BY MANUAL COUNT Normal [facility] Comment on above: Performed By: #### L [id number], [id number] ####Attendant Campground: RUTH ANN BRAGG ([phone])[facility] [place] ([facility])[address] [place] [address] [place] EOSINOPHILS TOTAL PER COUNTED LEUKOCYTES BY MANUAL COUNT Normal [facility] Comment on above: Performed By: #### L [id number], [id number] ####Attendant Campground: RUTH ANN OBREGONWILTON ([phone])[facility] ([facility])[address] [place] [address] [place] LYMPHOCYTES (10*3/UL) IN BLOOD-CELLAVISION 0.6 10*3/uL Low 1.0-4.3 [facility] Comment on above: Performed By: #### L [id number], [id number] ####Attendant Campground: RUTH ANN HERRONSHELTON ([phone])[facility] ([facility])[address] LYMPHOCYTES TOTAL PER COUNTED LEUKOCYTES BY MANUAL COUNT 5 Normal [facility] Comment on above: Performed By: #### L [id number], [id number] ####Attendant Campground: RUTH ANN OBREGONWILTON ([phone])[facility] ([facility])[address] [place] [address] [place] LYMPHOCYTES/100 LEUKOCYTES IN BLOOD-CELLAVISION 5 % Low 15-45 [facility] Comment on above: Performed By: #### L [id number], [id number] ####Attendant Campground: RUTH ANN BRAGG ([phone])[facility] ([facility])[address] METAMYELOCYTES TOTAL PER COUNTED LEUKOCYTES BY MANUAL COUNT [facility] Comment on above: Performed By: #### L [id number], [id number] ####Attendant Campground: RUTH ANN BRAGG ([phone])[facility] ([facility])[address] [place] [address] [place] MONOCYTES (10*3/UL) IN BLOOD-CELLAVISION 0.7 10*3/uL Normal 0.0-0.9 [facility] Comment on above: Performed By: #### L [id number], [id number] ####Attendant Campground: RUTH ANN BRAGG ([phone])[facility] ([facility])[address] [place] [address] [place] MONOCYTES TOTAL PER COUNTED LEUKOCYTES BY MANUAL COUNT 6 Normal [facility] Comment on above: Performed By: #### L [id number], [id number] ####Attendant Campground: RUTH ANN OBREGONWILTON ([phone])[facility] ([facility])[address] [place] [address] [place] MONOCYTES/100 LEUKOCYTES IN BLOOD-TOMMIE 6 % Normal 5-13 [facility] Comment on above: Performed By: #### L [id number], [id number] ####Attendant Campground: RUTH ANN OBREGONWILTON ([phone])[facility] ([facility])[address] MYELOCYTES COUNTED BY MANUAL COUNT [facility] Comment on above: Performed By: #### L [id number], [id number] ####Attendant Campground: RUTH ANN YEMI ([phone])[facility] ([facility])[address] NEUTROPHILS TOTAL PER COUNTED LEUKOCYTES BY MANUAL COUNT 89 Normal [facility] Comment on above: Performed By: #### L [id number], [id number] ####Attendant Campground: RUTH ANN OBREGONWILTON ([phone])[facility] ([facility])[address] [place] [address] [place] OVALOCYTES PRESENCE IN BLOOD BY LIGHT MICROSCOPY Slight Abnormal (none) [facility] Comment on above: Performed By: #### L [id number], [id number] ####Attendant Campground: RUTH ANN OBREGONWILTON ([phone])[facility] ([facility])[address] [place] [address] [place] POIKILOCYTOSIS (PRESENCE) IN BLOOD BY LIGHT MICROSCOPY Slight Abnormal (none) [facility] Comment on above: Performed By: #### L [id number], [id number] ####Attendant Campground: RUTH ANN OBREGONWILTON ([phone])[facility] ([facility])[address] [place] [address] [place] PROMYELOCYTES TOTAL PER COUNTED LEUKOCYTES BY MANUAL COUNT Normal [facility] Comment on above: Performed By: #### L [id number], [id number] ####Attendant Campground: RUTH ANN BRAGG ([phone])[facility] ([facility])[address] RBC MORPHOLOGY IN BLOOD abnormal Normal S [facility] Comment on above: Performed By: #### L [id number], [id number] ####Attendant Campground: RUTH ANN BRAGG ([phone])[facility] ([facility])[address] SEGMENTED NEUTROPHILS (10*3/UL) IN BLOOD-CELLAVISION 10.6 10*3/uL High 1.8-7.5 [facility] Comment on above: Performed By: #### L [id number], [id number] ####Attendant Campground: RUTH ANN BRAGG ([phone])[facility] ([facility])[address] SEGMENTED NEUTROPHILS/100 LEUKOCYTES-CE 89 % High 38-82 [facility] Comment on above: Performed By: #### L [id number], [id number] ####Attendant Campground: RUTH ANN BRAGG ([phone])[facility] ([facility])[address] TARGET CELLS IN BLOOD BY LIGHT MICROSCOPY Slight Abnormal (none) [facility] Comment on above: Performed By: #### L [id number], [id number] ####Attendant Campground: RUTH ANN BRAGG ([phone])[facility] [place] ([facility])[address] UNCLASSIFIED CELLS TOTAL PER COUNTED LEUKOCYTES BY MANUAL COUNT [facility] Comment on above: Performed By: #### L [id number], [id number] ####Attendant Campground: RUTH ANN BRAGG ([phone])[facility] ([facility])[address] VARIANT LYMPHOCYTES TOTAL PER COUNTED LEUKOCYTES BY MANUAL COUNT [facility] Comment on above: Performed By: #### L [id number], [id number] ####Attendant Campground: RUTH ANN BRAGG ([phone])[facility] [place] (SBHLAB)[address] No Panel Informationon 06-27 Interpretation and review of laboratory results Abnormal [facility] Interpretation and review of laboratory results Abnormal [facility] Interpretation and review of laboratory results Abnormal [facility] Interpretation and review of laboratory results Abnormal [facility] Interpretation and review of laboratory results Normal [facility] Lymphocytes Manual 5 [facility] Monocytes Manual 6 [facility] He alth Neutrophils Manual 89 [facility] Interpretation and review of laboratory results Abnormal [facility] Interpretation and review of laboratory results Abnormal [facility] No Panel InformationOrdered By: Osiel White on 06-27-2024 Interpretation and review of laboratory results Abnormal [facility] PHOSPHORUSon 06-27-2024 Phosphate [Mass/Vol] 3.7 mg/dL Normal 2.5-4.5 [facility] Comment on above: Performed By: #### L [id number], [id number], [id number] ####Attendant Campground: RUTH ANN BRAGG ([phone])[facility] ([facility])[address] Phosphate [Moles/Vol]on 06-09 Phosphate [Mass/Vol] 3.7 mg/dL 2.5 - 4 .5 mg/dL [facility] Progress Noteon 06-27-2024 Progress Note Normal [facility] Progress Note Normal [facility] 30on 06-26-2024 30 Normal [facility] [id number] 06-26-2024 [id number] Normal [facility] AMMONIAon 06-26-2024 Ammonia (P) [Moles/Vol] 134 umol/L High 9-30 S [facility] Comment on above: Performed By: #### L [id number] ####Attendant Campground: RUTH ANN BRAGG ([phone])[facility] BLOOD GAS ARTERIALon 11-19-2 024 Base excess Calc (Bld) [Moles/Vol] -2.4000 mmol/L Normal -3.0-3.0 [facility] Comment on above: Performed By: #### L [id number] ####Attendant Campground: RUTH ANN BRAGG ([phone])[facility] ([facility])[address] CO2 [Moles/Vol] 21.5 mmol/L Low 22.0-28.0 [facility] Comment on above: Performed By: #### L [id number] ####Attendant Campground: RUTH ANN BRAGG ([phone])[facility] ([facility])[address] HCO3 (Bld) [Moles/Vol] 20.7 mmol/L Low 21.0-27.0 [facility] Comment on above: Performed By: #### L [id number] ####Attendant Campground: RUTH ANN BRAGG ([phone])[facility] ([facility])[address] Hemoglobin (Bld) [Mass/Vol] 8.6 g/dL Low Screen only [facility] Comment on above: Performed By: #### L AB76 ####Attendant Campground: RUTH ANN BRAGG ([phone])[facility] ([facility])[address] OXYGEN SATURATION (%) IN ARTERIAL BLOOD 96.6 % Low 97.0-99.0 [facility] Comment on above: Performed By: #### L [id number] ####Attendant Campground: RUTH ANN BRAGG ([phone])[facility] ([facility])[address] PCO2 ARTERIAL 29.1 mm Hg Low 32.0-45.0 [facility] Comment on above: Performed By: #### L [id number] ####Attendant Campground: RUTH ANN BRAGG ([phone])[facility] ([facility])[address] [place] [address] [place] PH ARTERIAL 7.469 High 7.350-7.450 [facility] Comment on above: Performed By: #### L [id number] ####Attendant Campground: RUTH ANN BRAGG ([phone])[facility] PO2 ARTERIAL 97.0 mm Hg Normal 83.0-108.0 [facility] Comment on above: Performed By: #### L [id number] ####Attendant Campground: RUTH ANN BRAGG ([phone])[facility] SOURCE OF OXYGEN Room Air Normal [facility] Comment on above: Performed By: #### L [id number] ####Attendant Campground: RUTH ANN BRAGG ([phone])[facility] ([facility])[address] BLOOD TYPE AND SCREEN GELon 06-26-2024 ABO GROUPING O Normal [facility] Comment on above: Performed By: #### L [id number] ####Attendant Campground: RUTH ANN BRAGG ([phone])[facility] ([facility])[address] RH TYPE IN BLOOD Positive Normal [facility] Comment on above: Performed By: #### L [id number] ####Attendant Campground: RUTH ANN BRAGG ([phone])[facility] ([facility])[address] Blood type and Crossmatch pa maryann (Bld)on 06-26-2024 ABO group Nom (Bld) O [facility] Blood group antibody screen GEL Ql Negative [facility] D Ag Ql (RBC) Positive [facility] Healt h [facility] CBC (HEMOGRAM)on 06-26-2024 Erythrocyte distribution width (RBC) [Ratio] 15.0 % Normal 11.5-15.0 [facility] Comment on above: Performed By: #### L [id number] ####Attendant Campground: RUTH ANN BRAGG ([phone])[facility] ([facility])[address] Hematocrit (Bld) [Volume fraction] 27.2 % Low 35.0-47.0 [facility] Comment on above: Performed By: #### L [id number] ####Attendant Campground: RUTH ANN BRAGG ([phone])[facility] ([facility])[address] Hemoglobin (Bld) [Mass/Vol] 8.5 g/dL Low 11.7-16.0 [facility] Comment on above: Performed By: #### L [id number] ####Attendant Campground: RUTH ANN BRAGG ([phone])[facility] ([facility])[address] MCH (RBC) [Entitic mass] 31.5 pg Normal 26.0-34.0 [facility] Comment on above: Performed By: #### L [id number] ####Attendant Campground: RUTH ANN BRAGG ([phone])[facility]ALTH[facility] S[facility]ERS[facility] ([facility])[address] MCHC 31.3 % Normal 30.5-36.0 [facility] Comment on above: Performed By: #### L [id number] ####Attendant Campground: RUTH ANN BRAGG ([phone])[facility] ([facility])[address] [place] [address] MCV (RBC) [Entitic vol] 100.7 fL High 77.0-99.0 [facility] Comment on above: Performed By: #### L [id number] ####Attendant Campground: RUTH ANN BRAGG ([phone])[facility] [place] ([facility])[address] Platelet mean volume (Bld) [Entitic vol] 11.1 fL Normal 9.0-12.7 [facility] Comment on above: Performed By: #### L [id number] ####Attendant Campground: RUTH ANN BRAGG ([phone])[facility] [place] ([facility])[address] Platelets (Bld) [#/Vol] 127 10*3/uL Low 140-440 [facility] Comment on above: Performed By: #### L [id number] ####Attendant Campground: RUTH ANN BRAGG ([phone])[facility] ([facility])[address] RBC (Bld) [#/Vol] 2.70 10*6/uL Low 3.80-5.20 [facility] Comment on above: Performed By: #### L [id number] ####Attendant Campground: RUTH ANN BRAGG ([phone])[facility] [place] [address] WBC (Bld) [#/Vol] 7.9 10*3/uL Normal 3.6-10.7 [facility] Comment on above: Performed By: #### L [id number] ####Attendant Campground: RUTH ANN BRAGG ([phone])[facility] [place] [address] CBC W Auto Differential pane l (Bld)on 06-26-2024 Basophils (Bld) [#/Vol] 0 10*3/uL 0.0 - 0.2 10*3/uL [facility] Basophils/100 WBC (Bld) 0.5 % 0.0 - 2.0 % [facility] Eosinophils (Bld) [#/Vol] 0 10*3/uL 0. 0 - 0.5 10*3/uL [facility] Eosinophils/100 WBC (Bld) 0.2 % 0.0 - 6.0 % [facility] Erythrocyte distribution width (RBC) [Ratio] 14.6 % 11.5 - 15.0 % [facility] Hematocrit (Bld) [Volume fraction] 25.3 % Low 35.0 - 47.0 % [facility] Hemoglobin (Bld) [Mass/Vol] 7.9 g/dL Low 11.7 - 16.0 g/dL [facility] Immature granulocytes (Bld) [#/Vol] 0 10*3/uL NINF - 0.1 10*3/uL [facility] Immature granulocytes/100 WBC (Bld) 0.5 % 0.0 - 2.0 % [facility] Interpretation and review of laboratory results Abnormal [facility] th IPF 3 [facility] Lymphocytes (Bld) [#/Vol] 0.8 10*3/uL Low 1. 0 - 4.3 10*3/uL [facility] Lymphocytes/100 WBC (Bld) 12.7 % Low 15 .0 - 45.0 % [facility] MCH (RBC) [Entitic mass] 30.3 pg 26. 0 - 34.0 pg [facility] MCHC (RBC) [Mass/Vol] 31.2 % 30.5 - 36.0 % [facility] MCV (RBC) [Entitic vol] 96.9 fL 77.0 - 99.0 fL [facility] Monocytes (Bld) [#/Vol] 0.8 10*3/uL 0.0 - 0.9 10*3/uL [facility] Monocytes/100 WBC (Bld) 12.7 % 5.0 - 13.0 % [facility] Neutrophils (Bld) [#/Vol] 4.9 10*3/uL 1. 8 - 7.5 10*3/uL [facility] Neutrophils/100 WBC (Bld) 73.4 % 38 .0 - 82.0 % [facility] Nucleated RBC/100 WBC (Bld) [Ratio] 0 % [facility] Platelet mean volume (Bld) [Entitic vol] 11.2 fL 9.0 - 12.7 fL [facility] Platelets (Bld) [#/Vol] 106 10*3/uL Low 140 - 440 10*3/uL [facility] RBC (Bld) [#/Vol] 2.61 10*6/uL Low 3.80 - 5.2 0 10*6/uL [facility] WBC (Bld) [#/Vol] 6.6 10*3/uL 3.6 - 10.7 10*3/uL [facility] CBC WITH AUTO DIFFERENTIALon 06-26-2024 Basophils (Bld) [#/Vol] 0.0 10*3/uL Normal 0.0-0.2 [facility] Comment on above: Performed By: #### L [id number] ####Attendant Campground: RUTH ANN BRAGG ([phone])[facility] ([facility])[address] Basophils/100 WBC (Bld) 0.5 % Normal 0.0-2.0 [facility] Comment on above: Performed By: #### L [id number] ####Attendant Campground: RUTH ANN BRAGG ([phone])[facility] [place] ([facility])[address] Eosinophils (Bld) [#/Vol] 0.0 10*3/uL Normal 0.0-0.5 [facility] Comment on above: Performed By: #### L [id number] ####Attendant Campground: RUTH ANN BRAGG ([phone])[facility] ([facility])[address] [place] [address] Eosinophils/100 WBC (Bld) 0.2 % Normal 0.0-6.0 [facility] Comment on above: Performed By: #### L [id number] ####Attendant Campground: RUTH ANN BRAGG ([phone])[facility] ([facility])[address] [place] [address] Erythrocyte distribution width (RBC) [Ratio] 14.6 % Normal 11.5-15.0 [facility] Comment on above: Performed By: #### L [id number] ####Attendant Campground: RUTH ANN BRAGG ([phone])[facility] HEALTHRyan BARBNAMIAT ([facility])[address] [place] [address] Hematocrit (Bld) [Volume fraction] 25.3 % Low 35.0-47.0 [facility] Comment on above: Performed By: #### L [id number] ####Attendant Campground: RUTH ANN BRAGG ([phone])[facility] [place] ([facility])[address] Hemoglobin (Bld) [Mass/Vol] 7.9 g/dL Low 11.7-16.0 [facility] Comment on above: Performed By: #### L [id number] ####Attendant Campground: RUTH ANN BRAGG ([phone])[facility] [place] ([facility])[address] IMMATURE GRANS % 0.5 % Normal 0.0-2.0 [facility] Comment on above: Performed By: #### L [id number] ####Attendant Campground: RUTH ANN BRAGG ([phone])[facility] [place] ([facility])[address] IMMATURE GRANS ABSOLUTE 0.0 10*3/uL Normal <0.1 [facility] Comment on above: Performed By: #### L [id number] ####Attendant Campground: RUTH ANN BRAGG ([phone])[facility] [place] ([facility])[address] IPF 3 Normal [facility] Comment on above: Performed By: #### L [id number] ####Attendant Campground: RUTH ANN BRAGG ([phone])[facility] ([facility])[address] Lymphocytes (Bld) [#/Vol] 0.8 10*3/uL Low 1.0-4.3 [facility] Comment on above: Performed By: #### L [id number] ####Attendant Campground: RUTH ANN BRAGG ([phone])[facility] ([facility])[address] [place] [address] Lymphocytes/100 WBC (Bld) 12.7 % Low 15.0-45.0 [facility] Comment on above: Performed By: #### L [id number] ####Attendant [employer]: RUTH ANN BRAGG ([phone])[facility] (SB[facility])[address] MCH (RBC) [Entitic mass] 30.3 pg Normal 26.0-34.0 [facility] Comment on above: Performed By: #### L [id number] ####Attendant [employer]: RUTH ANN BRAGG ([phone])[facility] ([facility])[address] MCHC 31.2 % Normal 30.5-36.0 [facility] Comment on above: Performed By: #### L [id number] ####Attendant [employer]: RUTH ANN BRAGG ([phone])[facility] (SBHLAB)[address] MCV (RBC) [Entitic vol] 96.9 fL Normal 77.0-99.0 S [facility] Comment on above: Performed By: #### L [id number] ####Attendant Campground: RUTH ANN BRAGG ([phone])[facility] ([facility])[address] Monocytes (Bld) [#/Vol] 0.8 10*3/uL Normal 0.0-0.9 [facility] Comment on above: Performed By: #### L [id number] ####Attendant Campground: RUTH ANN BRAGG ([phone])[facility] ([facility])[address] Monocytes/100 WBC (Bld) 12.7 % Normal 5.0-13.0 S [facility] Comment on above: Performed By: #### L [id number] ####Attendant Campground: RUTH ANN BRAGG ([phone])[facility] ([facility])[address] NEUTROPHILS ABSOLUTE 4.9 10*3/uL Normal 1.8-7.5 [facility] Comment on above: Performed By: #### L [id number] ####Attendant Campground: RUTH ANN BRAGG ([phone])[facility] ([facility])[address] Neutrophils/100 WBC (Bld) 73.4 % Normal 38.0-82.0 [facility] Comment on above: Performed By: #### L [id number] ####Attendant Campground: RUTH ANN BRAGG ([phone])[facility] ([facility])[address] NRBC 0.0 /100 WBCs Normal 0.0-2.0 [facility] Comment on above: Performed By: #### L [id number] ####Attendant Campground: RUTH ANN BRAGG ([phone])[facility] ([facility] Platelet mean volume (Bld) [Entitic vol] 11.2 fL Normal 9.0-12.7 [facility] Comment on above: Performed By: #### L [id number] ####Attendant Campground: RUTH ANN BRAGG ([phone])[facility] ([facility])[address] Platelets (Bld) [#/Vol] 106 10*3/uL Low 140-440 [facility] Comment on above: Performed By: #### L [id number] ####Attendant Campground: RUTH ANN BRAGG ([phone])[facility] ([facility])[address] RBC (Bld) [#/Vol] 2.61 10*6/uL Low 3.80-5.20 [facility] Comment on above: Performed By: #### L [id number] ####Attendant Campground: RUTH ANN BRAGG ([phone])[facility] ([facility])[address] [place] [address] WBC (Bld) [#/Vol] 6.6 10*3/uL Normal 3.6-10.7 [facility] Comment on above: Performed By: #### L [id number] ####Attendant Campground: RUTH ANN BRAGG ([phone])[facility] ([facility])[address] CBC panel Auto (Bld)on 06-26 Erythrocyte distribution width (RBC) [Ratio] 15 % 11.5 - 15.0 % [facility] Hematocrit (Bld) [Volume fraction] 27.2 % Low 35.0 - 47.0 % [facility] Hemoglobin (Bld) [Mass/Vol] 8.5 g/dL Low 11.7 - 16.0 g/dL [facility] Interpretation and review of laboratory results Abnormal [facility] MCH (RBC) [Entitic mass] 31.5 pg 26. 0 - 34.0 pg [facility] MCHC (RBC) [Mass/Vol] 31.3 % 30.5 - 36.0 % [facility] MCV (RBC) [Entitic vol] 100.7 fL High 77.0 - 99.0 fL [facility] Platelet mean volume (Bld) [Entitic vol] 11.1 fL 9.0 - 12.7 fL [facility] Platelets (Bld) [#/Vol] 127 10*3/uL Low 140 - 440 10*3/uL [facility] RBC (Bld) [#/Vol] 2.7 10*6/uL Low 3.80 - 5.2 0 10*6/uL [facility] WBC (Bld) [#/Vol] 7.9 10*3/uL 3.6 - 10.7 10*3/uL [facility] COMPREHENSIVE METABOLIC PANE Smith 06-26-2024 Albumin [Mass/Vol] 3.0 g/dL Low 3.5-5.0 [facility] Comment on above: Performed By: #### L [id number] ####Attendant Campground: RUTH ANN BRAGG ([phone])[facility] ([facility])[address] ALP [Catalytic activity/Vol] 74 U/L Normal 38-126 [facility] Comment on above: Performed By: #### L [id number] ####Attendant Campground: RUTH ANN BRAGG ([phone])[facility] (HLAB)[address] ALT [Catalytic activity/Vol] 21 U/L Normal 0-34 [facility] Comment on above: Performed By: #### L [id number] ####Attendant Campground: RUTH ANN BRAGG ([phone])[facility] Anion gap [Moles/Vol] 7 mmol/L Normal 3-13 [facility] Comment on above: Performed By: #### L [id number] ####Attendant Campground: RUTH ANN BRAGG ([phone])[facility] ([facility])[address] AST [Catalytic activity/Vol] 44 U/L Normal 15-46 [facility] Comment on above: Performed By: #### L [id number] ####Attendant Campground: RUTH ANN BRAGG ([phone])[facility] ([facility])[address] Bilirubin [Mass/Vol] 0.8 mg/dL Normal 0.2-1.3 [facility] Comment on above: Performed By: #### L [id number] ####Attendant Campground: RUTH ANN BRAGG ([phone])[facility] (HLAB)[address] Calcium [Mass/Vol] 9.4 mg/dL Normal 8.4-10.4 [facility] Comment on above: Performed By: #### L [id number] ####Attendant Campground: RUTH ANN BRAGG ([phone])[facility] ([facility])[address] Chloride [Moles/Vol] 117 mmol/L High 98-107 [facility] Comment on above: Performed By: #### L [id number] ####Attendant Campground: RUTH ANN BRAGG ([phone])[facility] ([facility])[address] [place] [address] [place] CO2 [Moles/Vol] 18 mmol/L Low 22-[address] [facility] Comment on above: Performed By: #### L [id number] ####Attendant Campground: RUTH ANN BRAGG ([phone])[facility] ([facility])[address] Creatinine [Mass/Vol] 1.34 mg/dL High 0.52-1.04 [facility] Comment on above: Performed By: #### L [id number] ####Attendant Campground: RUTH ANN BRAGG ([phone])[facility] ([facility])[address] [place] [address] [place] GLOMERULAR FILTRATION RATE ML/MIN/1.73 SQ M.PREDICTED 40.7 mL/min/1.73m*2 Low >60.0 [facility] Comment on above: Result Comment: Calc ulation based on the Chronic Kidney Disease Epidemiology Collaboration (CKD-EPI) equation refit without adjustment for race Performed By: #### L [id number] ####Attendant Campground: RUTH ANN BRAGG ([phone])[facility] [place] ([facility])[address] Glucose [Mass/Vol] 156 mg/dL High 70-100 [facility] Comment on above: Performed By: #### L [id number] ####Attendant Campground: RUTH ANN BRAGG ([phone])[facility] ([facility])[address] Potassium [Moles/Vol] 3.8 mmol/L Normal 3.5-5.1 [facility] Comment on above: Performed By: #### L [id number] ####Attendant Campground: RUTH ANN BRAGG ([phone])[facility] ([facility])[address] [place] [address] [place] Protein [Mass/Vol] 6.1 g/dL Low 6.3-8.2 [facility] Comment on above: Performed By: #### L [id number] ####Attendant Campground: RUTH ANN BRAGG ([phone])[facility] (SBHLAB)[address] [place] [address] [place] Sodium [Moles/Vol] 142 mmol/L Normal 135-145 [facility] Comment on above: Performed By: #### L [id number] ####Attendant Campground: RUTH ANN BRAGG ([phone])[facility] (SB[facility])[address] [place] [address] [place] Urea nitrogen [Mass/Vol] 42 mg/dL High 7-17 [facility] Comment on above: Performed By: #### L [id number] ####Attendant Campground: RUTH ANN BRAGG ([phone])[facility] ([facility])[address] Albumin [Mass/Vol] 3.2 g/dL Low 3.5-5.0 [facility] Comment on above: Performed By: #### L [id number] ####Attendant Campground: RUTH ANN BRAGG ([phone])[facility] ([facility])[address] ALP [Catalytic activity/Vol] 74 U/L Normal 38-126 [facility] Comment on above: Performed By: #### L [id number] ####Attendant Campground: RUTH ANN BRAGG ([phone])[facility] ([facility])[address] ALT [Catalytic activity/Vol] 21 U/L Normal 0-34 [facility] Comment on above: Performed By: #### L [id number] ####Attendant Campground: RUTH ANN BRAGG ([phone])[facility] ([facility])[address] Anion gap [Moles/Vol] 7 mmol/L Normal 3-13 [facility] Comment on above: Performed By: #### L [id number] ####Attendant Campground: RUTH ANN BRAGG ([phone])[facility] ([facility])[address] AST [Catalytic activity/Vol] 43 U/L Normal 15-46 [facility] Comment on above: Performed By: #### L [id number] ####Attendant Campground: RUTH ANN BRAGG ([phone])[facility] ([facility])[address] Bilirubin [Mass/Vol] 0.8 mg/dL Normal 0.2-1.3 [facility] Comment on above: Performed By: #### L [id number] ####Attendant Campground: RUTH ANN BRAGG ([phone])[facility] ([facility])[address] Calcium [Mass/Vol] 9.4 mg/dL Normal 8.4-10.4 [facility] Comment on above: Performed By: #### L [id number] ####Attendant Campground: RUTH ANN BRAGG ([phone])[facility] [place] ([facility])[address] Chloride [Moles/Vol] 116 mmol/L High 98-107 [facility] Comment on above: Performed By: #### L [id number] ####Attendant Campground: RUTH ANN BRAGG ([phone])[facility] ([facility])[address] CO2 [Moles/Vol] 19 mmol/L Low 22-[address] [facility] Comment on above: Performed By: #### L [id number] ####Attendant Campground: RUTH ANN BRAGG ([phone])[facility] Creatinine [Mass/Vol] 1.39 mg/dL High 0.52-1.04 [facility] Comment on above: Performed By: #### L [id number] ####Attendant Campground: RUTH ANN BRAGG ([phone])[facility] GLOMERULAR FILTRATION RATE ML/MIN/1.73 SQ M.PREDICTED 38.9 mL/min/1.73m*2 Low >60.0 [facility] Comment on above: Result Comment: Calc ulation based on the Chronic Kidney Disease Epidemiology Collaboration (CKD-EPI) equation refit without adjustment for race Performed By: #### L [id number] ####Attendant Campground: RUTH ANN BRAGG ([phone])[facility] ([facility])[address] [place] [address] [place] Glucose [Mass/Vol] 155 mg/dL High 70-100 [facility] Comment on above: Performed By: #### L AB17 ####Attendant Campground: RUTH ANN BRAGG ([phone])[facility] ([facility])[address] Potassium [Moles/Vol] 3.9 mmol/L Normal 3.5-5.1 [facility] Comment on above: Performed By: #### L AB17 ####Attendant Campground: RUTH ANN BRAGG ([phone])[facility] (SB[facility]AB)[address] Protein [Mass/Vol] 6.3 g/dL Normal 6.3-8.2 [facility] Comment on above: Performed By: #### L AB17 ####Attendant Campground: RUTH ANN BRAGG ([phone])[facility] [place] ([facility])[address] Sodium [Moles/Vol] 142 mmol/L Normal 135-145 [facility] Comment on above: Performed By: #### L AB17 ####Attendant Campground: RUTH ANN BRAGG ([phone])[facility] [place] ([facility])[address] Urea nitrogen [Mass/Vol] 42 mg/dL High 7-17 [facility] Comment on above: Performed By: #### L AB17 ####Attendant Campground: RUTH ANN BRAGG ([phone])[facility] ([facility])[address] ABDOMEN PELVIS WO IV CONT RASTon 06-26-2024 CT ABDOMEN PELVIS WO IV CONTRAST Normal [facility] CT Abdomen and Pelvis WO con traston 06-26-2024 [facility] Radiology Study observation (narrative) Marya Rosas alth CT Abdomen and Pelvis WO con trastOrdered By: Lynda Garcia on 06-26-2024 [facility] [employer] Work Phone: CT HEAD WO IV CONTRASTon CT HEAD WO IV CONTRAST Normal [facility] CT Head WO contraston 2023 [facility] RADIOLOGY [facility] Radiology Study observation (narrative) Marya Rosas alth CT Head WO contrastOrdered B y: Tracey Fernando on 06-26-2024 [facility] Work Phone: Comprehensive metabolic 1998 panelon 06-26-2024 Albumin [Mass/Vol] 3 g/dL Low 3.5 - 5.0 g/dL [facility] ALP [Catalytic activity/Vol] 74 U/L 38 - 126 U/L [facility] ALT [Catalytic activity/Vol] 21 U/L 0 - 34 U/L [facility] Anion gap [Moles/Vol] 7 mmol/L 3 - 13 mmol/L [facility] AST [Catalytic activity/Vol] 44 U/L 15 - 46 U/L [facility] Bilirubin [Mass/Vol] 0.8 mg/dL 0.2 - 1 .3 mg/dL [facility] Calcium [Mass/Vol] 9.4 mg/dL 8.4 - 10. 4 mg/dL [facility] Chloride [Moles/Vol] 117 mmol/L High 98 - 10 7 mmol/L [facility] CO2 [Moles/Vol] 18 mmol/L Low 22 - 30 mmol/L [facility] Creatinine [Mass/Vol] 1.34 mg/dL High 0.52 - 1.04 mg/dL [facility] GFR/1.73 sq M.predicted (S/P/Bld) [Vol rate/Area] 40.7 mL/min Low - PINF [facility] Glucose [Mass/Vol] 156 mg/dL High 70 - 100 mg/dL [facility] Interpretation and review of laboratory results Abnormal [facility] th Potassium [Moles/Vol] 3.8 mmol/L 3.5 - 5.1 mmol/L [facility] Protein [Mass/Vol] 6.1 g/dL Low 6.3 - 8.2 g/dL [facility] Sodium [Moles/Vol] 142 mmol/L 135 - 145 mmol/L [facility] Urea nitrogen [Mass/Vol] 42 mg/dL High 7 - 17 mg/dL [facility] Albumin [Mass/Vol] 3.2 g/dL Low 3.5 - 5.0 g/dL [facility] ALP [Catalytic activity/Vol] 74 U/L 38 - 126 U/L [facility] ALT [Catalytic activity/Vol] 21 U/L 0 - 34 U/L [facility] Anion gap [Moles/Vol] 7 mmol/L 3 - 13 mmol/L [facility] AST [Catalytic activity/Vol] 43 U/L 15 - 46 U/L [facility] Bilirubin [Mass/Vol] 0.8 mg/dL 0.2 - 1 .3 mg/dL [facility] Calcium [Mass/Vol] 9.4 mg/dL 8.4 - 10. 4 mg/dL [facility] Chloride [Moles/Vol] 116 mmol/L High 98 - 10 7 mmol/L [facility] CO2 [Moles/Vol] 19 mmol/L Low 22 - 30 mmol/L [facility] Creatinine [Mass/Vol] 1.39 mg/dL High 0.52 - 1.04 mg/dL [facility] GFR/1.73 sq M.predicted (S/P/Bld) [Vol rate/Area] 38.9 mL/min Low - PINF [facility] Glucose [Mass/Vol] 155 mg/dL High 70 - 100 mg/dL [facility] Interpretation and review of laboratory results Abnormal [facility] Potassium [Moles/Vol] 3.9 mmol/L 3.5 - 5.1 mmol/L [facility] Protein [Mass/Vol] 6.3 g/dL 6.3 - 8.2 g/dL [facility] Sodium [Moles/Vol] 142 mmol/L 135 - 145 mmol/L [facility] Urea nitrogen [Mass/Vol] 42 mg/dL High 7 - 17 mg/dL [facility] Consulton 06-26-2024 Consult Normal [facility] Consult Normal [facility] HEMOGLOBIN AND HEMATOCRIT, B LOODon 06-26-2024 Hematocrit (Bld) [Volume fraction] 24.6 % Low 35.0-47.0 [facility] Comment on above: Performed By: #### L [id number] ####Attendant Campground: RUTH ANN BRAGG ([phone])[facility] (SBHLAB)[address] [place] [address] Hemoglobin (Bld) [Mass/Vol] 7.9 g/dL Low 11.7-16.0 [facility] Comment on above: Performed By: #### L [id number] ####Attendant Campground: RUTH ANN BRAGG ([phone])[facility] (SB[facility])[address] Hematocrit (Bld) [Volume fraction] 25.7 % Low 35.0-47.0 [facility] Comment on above: Performed By: #### L [id number] ####Attendant Campground: RUTH ANN BRAGG ([phone])[facility] ([facility])[address] Hemoglobin (Bld) [Mass/Vol] 8.1 g/dL Low 11.7-16.0 [facility] Comment on above: Performed By: #### L [id number] ####Attendant Campground: RUTH ANN BRAGG ([phone])[facility] Hematocrit (Bld) [Volume fraction] 27.2 % Low 35.0-47.0 [facility] Comment on above: Performed By: #### L [id number] ####Attendant Campground: RUTH ANN BRAGG ([phone])[facility] Hemoglobin (Bld) [Mass/Vol] 8.5 g/dL Low 11.7-16.0 [facility] Comment on above: Performed By: #### L [id number] ####Attendant Campground: RUTH ANN BRAGG ([phone])[facility] ([facility])[address] [place] [address] Hemoglobin (Bld) [Mass/Vol]o n 06-26-2024 Hematocrit (Bld) [Volume fraction] 24.6 % Low 35.0 - 47.0 % [facility] Interpretation and review of laboratory results Abnormal [facility] Hematocrit (Bld) [Volume fraction] 25.7 % Low 35.0 - 47.0 % [facility] Interpretation and review of laboratory results Abnormal [facility] Hematocrit (Bld) [Volume fraction] 27.2 % Low 35.0 - 47.0 % [facility] Interpretation and review of laboratory results Abnormal [facility] Laboratory - Chemistry and C hemistry - challengeon 06-26-2024 Glucose [Mass/Vol] 191 mg/dL High 70 - 100 mg/dL [facility] Glucose [Mass/Vol] 189 mg/dL High 70 - 100 mg/dL [facility] Ammonia (P) [Moles/Vol] 134 umol/L High 9 - 30 umol/L [facility] Glucose [Mass/Vol] 169 mg/dL High 70 - 100 mg/dL [facility] Troponin I.cardiac [Mass/Vol] 0.042 ng/mL High NINF - 0.034 ng/mL [facility] Laboratory - Chemistry and C hemistry - challengeOrdered By: Sara Cano on 06-26-2024 Base excess Calc (Bld) [Moles/Vol] -2.4000 mmol/L -3.0 - 3.0 mmol/L [facility] CO2 (Bld) [Partial pressure] 29.1 mm[Hg] Low [facility] CO2 [Moles/Vol] 21.5 mmol/L Low 22.0 - 28.0 mmol/L [facility] HCO3 (Bld) [Moles/Vol] 20.7 mmol/L Low 21.0 - 27.0 mmol/L [facility] Oxygen (Bld) [Partial pressure] 97 mm[Hg] [facility] pH (Bld) 7.469 [pH] High 7.350 - 7.450 [facility] Laboratory - Hematology and Cell countson 06-26-2024 Hemoglobin (Bld) [Mass/Vol] 7.9 g/dL Low 11.7 - 16.0 g/dL [facility] Hemoglobin (Bld) [Mass/Vol] 8.1 g/dL Low 11.7 - 16.0 g/dL [facility] Hemoglobin (Bld) [Mass/Vol] 8.5 g/dL Low 11.7 - 16.0 g/dL [facility] Laboratory - Hematology and Cell countsOrdered By: Sara Cano on 06-26-2024 Hemoglobin (Bld) [Mass/Vol] 8.6 g/dL Low Screen only [facility] Lower GI hemoglobin spec 1 I A Ql (Stl)Ordered By: Ovidio Carson on 06-26-2024 Fecal occult blood Positive Abnormal Negative [facility] Interpretation and review of laboratory results Abnormal [facility] No Panel Informationon 06-26 Blood Expiration Date [id number] [facility] Crossmatch interpretation COMP [facility] Dispense Status Transfused [facility] Product Blood Type 5100 [facility] PRODUCT CODE [id number] [facility] Health Unit ABO O [facility] Unit Number [id number]-* [facility] alth Unit RH Positive [facility] Unit Volume 300 mL [facility] Interpretation and review of laboratory results Abnormal [facility] Interpretation and review of laboratory results Abnormal [facility] Interpretation and review of laboratory results Abnormal [facility] Interpretation and review of laboratory results Abnormal [facility] No Panel InformationOrdered By: Sara Cano on 06-26-2024 Interpretation and review of laboratory results Abnormal [facility] Source Of Oxygen Room Air [facility] Progress Noteon 06-26-2024 Progress Note Normal [facility] Progress [facility] Normal [facility] Progress Note Normal [facility] Progress Note Normal [facility] Progress Note Normal [facility] Troponin I.cardiac [Mass/Vol ]on 06-26-2024 Interpretation and review of laboratory results Abnormal [facility] XR ABDOMEN 1 VIEWon 06-26-20 XR ABDOMEN 1 VIEW Normal [facility] XR Abdomen Single viewon [facility] RADIOLOGY [facility] Radiology Study observation (narrative) Marya Rosas alth XR CHEST 1 VIEWon 06-26-2024 XR CHEST 1 VIEW Normal [facility] XR Chest Single viewon 06-26 [facility] RADIOLOGY [facility] Radiology Study observation (narrative) Marya Rosas alth CBC W Auto Differential pane l (Bld)on 06-25-2024 Basophils (Bld) [#/Vol] 0.1 10*3/uL 0.0 - 0.2 10*3/uL [facility] Basophils/100 WBC (Bld) 0.9 % 0.0 - 2.0 % [facility] Eosinophils (Bld) [#/Vol] 0.1 10*3/uL 0. 0 - 0.5 10*3/uL [facility] Eosinophils/100 WBC (Bld) 2 % 0.0 - 6.0 % [facility] Erythrocyte distribution width (RBC) [Ratio] 14.6 % 11.5 - 15.0 % [facility] Hematocrit (Bld) [Volume fraction] 27.7 % Low 35.0 - 47.0 % [facility] Hemoglobin (Bld) [Mass/Vol] 9 g/dL Low 11.7 - 16.0 g/dL [facility] Immature granulocytes (Bld) [#/Vol] 0 10*3/uL NINF - 0.1 10*3/uL [facility] Health Immature granulocytes/100 WBC (Bld) 0.2 % 0.0 - 2.0 % [facility] Interpretation and review of laboratory results Abnormal [facility] th Lymphocytes (Bld) [#/Vol] 0.9 10*3/uL Low 1. 0 - 4.3 10*3/uL [facility] Health Lymphocytes/100 WBC (Bld) 15.8 % 15 .0 - 45.0 % [facility] MCH (RBC) [Entitic mass] 31.1 pg 26. 0 - 34.0 pg [facility] MCHC (RBC) [Mass/Vol] 32.5 % 30.5 - 36.0 % [facility] MCV (RBC) [Entitic vol] 95.8 fL 77.0 - 99.0 fL [facility] Monocytes (Bld) [#/Vol] 0.9 10*3/uL 0.0 - 0.9 10*3/uL [facility] Monocytes/100 WBC (Bld) 15.4 % High 5.0 - 13.0 % [facility] Neutrophils (Bld) [#/Vol] 3.6 10*3/uL 1. 8 - 7.5 10*3/uL [facility] Health Neutrophils/100 WBC (Bld) 65.7 % 38 .0 - 82.0 % [facility] Nucleated RBC/100 WBC (Bld) [Ratio] 0 % [facility] Platelet mean volume (Bld) [Entitic vol] 11.2 fL 9.0 - 12.7 fL [facility] Platelets (Bld) [#/Vol] 119 10*3/uL Low 140 - 440 10*3/uL [facility] RBC (Bld) [#/Vol] 2.89 10*6/uL Low 3.80 - 5.2 0 10*6/uL [facility] WBC (Bld) [#/Vol] 5.5 10*3/uL 3.6 - 10.7 10*3/uL [facility] CBC WITH AUTO DIFFERENTIALon 06-25-2024 Basophils (Bld) [#/Vol] 0.1 10*3/uL Normal 0.0-0.2 [facility] Comment on above: Performed By: #### L [id number] ####Attendant Campground: RUTH ANN BRAGG ([phone])[facility] ([facility])[address] Basophils/100 WBC (Bld) 0.9 % Normal 0.0-2.0 [facility] Comment on above: Performed By: #### L [id number] ####Attendant Campground: RUTH ANN BRAGG ([phone])[facility] ([facility])[address] Eosinophils (Bld) [#/Vol] 0.1 10*3/uL Normal 0.0-0.5 [facility] Comment on above: Performed By: #### L [id number] ####Attendant Campground: RUTH ANN BRAGG ([phone])[facility] ([facility])[address] Eosinophils/100 WBC (Bld) 2.0 % Normal 0.0-6.0 [facility] Comment on above: Performed By: #### L [id number] ####Attendant Campground: RUTH ANN BRAGG ([phone])[facility] ([facility])[address] Erythrocyte distribution width (RBC) [Ratio] 14.6 % Normal 11.5-15.0 [facility] Comment on above: Performed By: #### L [id number] ####Attendant Campground: RUTH ANN BRAGG ([phone])[facility] ([facility])[address] Hematocrit (Bld) [Volume fraction] 27.7 % Low 35.0-47.0 [facility] Comment on above: Performed By: #### L [id number] ####Attendant Campground: RUTH ANN OBREGONDavidSHELTON ([phone])[facility] Hemoglobin (Bld) [Mass/Vol] 9.0 g/dL Low 11.7-16.0 [facility] Comment on above: Performed By: #### L [id number] ####Attendant Campground: RUTH ANN YEMI ([phone])[facility] IMMATURE GRANS % 0.2 % Normal 0.0-2.0 [facility] Comment on above: Performed By: #### L [id number] ####Attendant Campground: RUTH ANN OBREGONWILTON ([phone])[facility] ([facility])[address] [place] [address] IMMATURE GRANS ABSOLUTE 0.0 10*3/uL Normal <0.1 [facility] Comment on above: Performed By: #### L [id number] ####Attendant Campground: RUTH ANN OBREGONWILTON ([phone])[facility] ([facility])[address] [place] [address] Lymphocytes (Bld) [#/Vol] 0.9 10*3/uL Low 1.0-4.3 [facility] Comment on above: Performed By: #### L [id number] ####Attendant Campground: RUTH ANN OBREGONWILTON ([phone])[facility] [place] [address] Lymphocytes/100 WBC (Bld) 15.8 % Normal 15.0-45.0 [facility] Comment on above: Performed By: #### L [id number] ####Attendant Campground: RUTH ANN HERRONSHELTON ([phone])[facility] [place] [address] MCH (RBC) [Entitic mass] 31.1 pg Normal 26.0-34.0 [facility] Comment on above: Performed By: #### L [id number] ####Attendant Campground: RUTH ANN OBREGONDavidSHELTON ([phone])[facility] ([facility])[address] MCHC 32.5 % Normal 30.5-36.0 [facility] Comment on above: Performed By: #### L [id number] ####Attendant Campground: RUTH ANN YEMI ([phone])[facility] ([facility])[address] MCV (RBC) [Entitic vol] 95.8 fL Normal 77.0-99.0 S [facility] Comment on above: Performed By: #### L [id number] ####Attendant Campground: RUTH ANN YEMI ([phone])[facility] ([facility])[address] Monocytes (Bld) [#/Vol] 0.9 10*3/uL Normal 0.0-0.9 [facility] Comment on above: Performed By: #### L [id number] ####Attendant Campground: RUTH ANN YEMI ([phone])[facility] ([facility])[address] Monocytes/100 WBC (Bld) 15.4 % High 5.0-13.0 S [facility] Comment on above: Performed By: #### L [id number] ####Attendant Campground: RUTH ANN YEMI ([phone])[facility] ([facility])[address] NEUTROPHILS ABSOLUTE 3.6 10*3/uL Normal 1.8-7.5 [facility] Comment on above: Performed By: #### L [id number] ####Attendant Campground: RUTH ANN HERRONSHELTON ([phone])[facility] ([facility])[address] Neutrophils/100 WBC (Bld) 65.7 % Normal 38.0-82.0 [facility] Comment on above: Performed By: #### L [id number] ####Attendant Campground: RUTH ANN BRAGG ([phone])[facility] ([facility])[address] NRBC 0.0 /100 WBCs Normal 0.0-2.0 [facility] Comment on above: Performed By: #### L [id number] ####Attendant Campground: RUTH ANN BRAGG ([phone])[facility] ([facility])[address] Platelet mean volume (Bld) [Entitic vol] 11.2 fL Normal 9.0-12.7 [facility] Comment on above: Performed By: #### L [id number] ####Attendant Campground: RUTH ANN BRAGG ([phone])[facility] ([facility])[address] Platelets (Bld) [#/Vol] 119 10*3/uL Low 140-440 [facility] Comment on above: Performed By: #### L [id number] ####Attendant Campground: RUTH ANN BRAGG ([phone])[facility] ([facility])[address] RBC (Bld) [#/Vol] 2.89 10*6/uL Low 3.80-5.20 [facility] Comment on above: Performed By: #### L [id number] ####Attendant Campground: RUTH ANN BRAGG ([phone])[facility] ([facility])[address] WBC (Bld) [#/Vol] 5.5 10*3/uL Normal 3.6-10.7 [facility] Comment on above: Performed By: #### L [id number] ####Attendant Campground: RUTH ANN BRAGG ([phone])[facility] ([facility])[address] COMPLETE URINALYSISon 2023 BACTERIA (#/HPF) IN URINE Moderate Abnormal Negative [facility] Comment on above: Performed By: #### L [id number] ####Attendant Campground: RUTH ANN BRAGG ([phone])[facility] ([facility])[address] BILIRUBIN, TOTAL PRESENCE IN URINE Negative Normal Negative [facility] Comment on above: Performed By: #### L [id number] ####Attendant Campground: RUTH ANN BRAGG ([phone])[facility] ([facility])[address] Clarity (U) Clear Normal Clear [facility] Comment on above: Performed By: #### L [id number] ####Attendant Campground: RUTH ANN BRAGG ([phone])[facility] ([facility])[address] Color (U) Light Yellow Normal Lt. Yellow [facility] Comment on above: Performed By: #### L [id number] ####Attendant Campground: RUTH ANN BRAGG ([phone])[facility] ([facility])[address] GLUCOSE (MG/DL) IN URINE Normal Normal Nor mal (<70) [facility] Comment on above: Performed By: #### L [id number] ####Attendant Campground: RUTH ANN BRAGG ([phone])[facility] ([facility])[address] [place] [address] [place] HEMOGLOBIN PRESENCE IN URINE Negative Normal Negative [facility] Comment on above: Performed By: #### L [id number] ####Attendant Campground: RUTH ANN BRAGG ([phone])[facility] ([facility])[address] [place] [address] [place] Ketones Ql (U) Negative Normal Negative [facility] Comment on above: Performed By: #### L [id number] ####Attendant Campground: RUTH ANN BRAGG ([phone])[facility] ([facility])[address] LEUKOCYTE ESTERASE PRESENCE IN URINE BY TEST STRIP 75 Yomi/uL Abnormal Negative [facility] Comment on above: Performed By: #### L [id number] ####Attendant Campground: RUTH ANN BRAGG ([phone])[facility] ([facility])[address] MUCUS (#/LPF) IN URINE SEDIMENT Few Normal Negative [facility] Comment on above: Performed By: #### L [id number] ####Attendant Campground: RUTH ANN BRAGG ([phone])[facility] ([facility])[address] NITRITE PRESENCE IN URINE Negative Normal Negative [facility] Comment on above: Performed By: #### L [id number] ####Attendant Campground: RUTH ANN BRAGG ([phone])[facility] ([facility])[address] [place] [address] pH (U) 5.0 [pH] Normal 5.0-8.0 [facility] Comment on above: Performed By: #### L [id number] ####Attendant Campground: RUTH ANN BRAGG ([phone])[facility] ([facility])[address] [place] [address] Protein (U) [Mass/Vol] 30 mg/dL Abnormal Negative [facility] Comment on above: Performed By: #### L [id number] ####Attendant Campground: RUTH ANN BRAGG ([phone])[facility] ([facility])[address] [place] [address] RBC (#/HPF) IN URINE SEDIMENT 3-5 Abnormal 0-2 [facility] Comment on above: Performed By: #### L [id number] ####Attendant Campground: RUTH ANN BRAGG ([phone])[facility] ([facility])[address] [place] [address] Specific gravity (U) [Rel density] 1.018 Normal 1.005-1.030 [facility] Comment on above: Performed By: #### L [id number] ####Attendant Campground: RUTH ANN BRAGG ([phone])[facility] ([facility])[address] SQUAMOUS EPITHELIAL CELLS (#/HPF) IN URINE SEDIMENT 0-2 Normal 3-5 [facility] Comment on above: Performed By: #### L [id number] ####Attendant Campground: RUTH ANN BRAGG ([phone])[facility] ([facility])[address] UROBILINOGEN (MG/DL) IN URINE Normal Normal Normal (0-1) [facility] Comment on above: Performed By: #### L [id number] ####Attendant Campground: RUTH ANN BRAGG ([phone])[facility] ([facility])[address] WBC (LEUKOCYTE) (#/HPF) IN URINE SEDIMENT 11-25 Abnormal 0-5 [facility] Comment on above: Performed By: #### L [id number] ####Attendant Campground: RUTH ANN BRAGG ([phone])[facility] ([facility])[address] WBC (LEUKOCYTE) CLUMPS (#/HPF) IN URINE SEDIMENT Rare Abnormal Negative [facility] Comment on above: Performed By: #### L [id number] ####Attendant Campground: RUTH ANN BRAGG ([phone])[facility] ([facility])[address] [place] [address] [place] YEAST (#/HPF) IN URINE Few Abnormal Negative [facility] Comment on above: Performed By: #### L [id number] ####Attendant Campground: RUTH ANN BRAGG ([phone])[facility] ([facility])[address] COMPREHENSIVE METABOLIC PANE Smith 06-25-2024 Albumin [Mass/Vol] 3.4 g/dL Low 3.5-5.0 [facility] Comment on above: Performed By: #### L [id number], LAB17 ####Attendant Campground: RUTH ANN BRAGG ([phone])[facility] ([facility])[address] [place] [address] [place] ALP [Catalytic activity/Vol] 89 U/L Normal 38-126 [facility] Comment on above: Performed By: #### L [id number], LAB17 ####Attendant Campground: RUTH ANN BRAGG ([phone])[facility] ([facility])[address] [place] [address] [place] ALT [Catalytic activity/Vol] 21 U/L Normal 0-34 [facility] Comment on above: Performed By: #### L [id number], LAB17 ####Attendant Campground: RUTH ANN BRAGG ([phone])[facility] ([facility])[address] Anion gap [Moles/Vol] 7 mmol/L Normal 3-13 [facility] Comment on above: Performed By: #### L [id number], LAB17 ####Attendant Campground: RUTH ANN BRAGG ([phone])[facility] ([facility])[address] [place] [address] [place] AST [Catalytic activity/Vol] 45 U/L Normal 15-46 [facility] Comment on above: Performed By: #### L [id number], LAB17 ####Attendant Campground: RUTH ANN BRAGG ([phone])[facility] ([facility])[address] [place] [address] [place] Bilirubin [Mass/Vol] 0.9 mg/dL Normal 0.2-1.3 [facility] Comment on above: Performed By: #### L [id number], LAB17 ####Attendant Campground: RUTH ANN BRAGG ([phone])[facility] ([facility])[address] [place] [address] [place] Calcium [Mass/Vol] 9.7 mg/dL Normal 8.4-10.4 [facility] Comment on above: Performed By: #### L [id number], LAB17 ####Attendant Campground: RUTH ANN [phone])[facility] ([facility])[address] [place] [address] [place] Chloride [Moles/Vol] 114 mmol/L High 98-107 [facility] Comment on above: Performed By: #### L [id number], LAB17 ####Attendant Campground: RUTH ANN BRAGG ([phone])[facility] ([facility])[address] [place] [address] [place] CO2 [Moles/Vol] 21 mmol/L Low 22-[address] [facility] Comment on above: Performed By: #### L [id number], LAB17 ####Attendant Campground: RUTH ANN BRAGG ([phone])[facility] ([facility])[address] Creatinine [Mass/Vol] 1.40 mg/dL High 0.52-1.04 [facility] Comment on above: Performed By: #### L [id number], LAB17 ####Attendant Campground: RUTH ANN BRAGG ([phone])[facility] ([facility])[address] [place] [address] [place] GLOMERULAR FILTRATION RATE ML/MIN/1.73 SQ M.PREDICTED 38.6 mL/min/1.73m*2 Low >60.0 [facility] Comment on above: Result Comment: Calc ulation based on the Chronic Kidney Disease Epidemiology Collaboration (CKD-EPI) equation refit without adjustment for race Performed By: #### L [id number], LAB17 ####Attendant Campground: RUTH ANN BRAGG ([phone])[facility] ([facility])[address] [place] [address] [place] Glucose [Mass/Vol] 147 mg/dL High 70-100 [facility] Comment on above: Performed By: #### L [id number], LAB17 ####Attendant Campground: RUTH ANN BRAGG ([phone])[facility] ([facility])[address] [place] [address] [place] Potassium [Moles/Vol] 3.6 mmol/L Normal 3.5-5.1 [facility] Comment on above: Performed By: #### L [id number], LAB17 ####Attendant Campground: RUTH ANN BRAGG ([phone])[facility] ([facility])[address] Protein [Mass/Vol] 6.7 g/dL Normal 6.3-8.2 [facility] Comment on above: Performed By: #### L [id number], LAB17 ####Attendant Campground: RUTH ANN BRAGG ([phone])[facility] ([facility])[address] Sodium [Moles/Vol] 141 mmol/L Normal 135-145 [facility] Comment on above: Performed By: #### L [id number], LAB17 ####Attendant Campground: RUTH ANN BRAGG ([phone])[facility] ([facility])[address] Urea nitrogen [Mass/Vol] 37 mg/dL High 7-17 [facility] Comment on above: Performed By: #### L [id number], LAB17 ####Attendant Campground: RUTH ANN BRAGG ([phone])[facility] (SBAB)[address] COVID-19, Flu A/B, and RSV C omboon 06-25-2024 Interpretation and review of laboratory results Normal [facility] CT HEAD WO IV CONTRASTon CT HEAD WO IV CONTRAST Normal [facility] CT Head WO contraston 2023 [facility] Radiology Study observation (narrative) [facility] CT Head WO contrastOrdered B y: Sue Hernandez on 06-25-2024 [facility] Work Phone: Comprehensive metabolic 1998 panelon 06-25-2024 Albumin [Mass/Vol] 3.4 g/dL Low 3.5 - 5.0 g/dL [facility] ALP [Catalytic activity/Vol] 89 U/L 38 - 126 U/L [facility] ALT [Catalytic activity/Vol] 21 U/L 0 - 34 U/L [facility] Anion gap [Moles/Vol] 7 mmol/L 3 - 13 mmol/L [facility] AST [Catalytic activity/Vol] 45 U/L 15 - 46 U/L [facility] Bilirubin [Mass/Vol] 0.9 mg/dL 0.2 - 1 .3 mg/dL [facility] Calcium [Mass/Vol] 9.7 mg/dL 8.4 - 10. 4 mg/dL [facility] Chloride [Moles/Vol] 114 mmol/L High 98 - 10 7 mmol/L [facility] CO2 [Moles/Vol] 21 mmol/L Low 22 - 30 mmol/L [facility] Creatinine [Mass/Vol] 1.4 mg/dL High 0.52 - 1.04 mg/dL [facility] GFR/1.73 sq M.predicted (S/P/Bld) [Vol rate/Area] 38.6 mL/min Low - PINF [facility] Glucose [Mass/Vol] 147 mg/dL High 70 - 100 mg/dL [facility] Interpretation and review of laboratory results Abnormal [facility] th Potassium [Moles/Vol] 3.6 mmol/L 3.5 - 5.1 mmol/L [facility] Protein [Mass/Vol] 6.7 g/dL 6.3 - 8.2 g/dL [facility] Sodium [Moles/Vol] 141 mmol/L 135 - 145 mmol/L [facility] Urea nitrogen [Mass/Vol] 37 mg/dL High 7 - 17 mg/dL [facility] ECG 12-LEADon 06-25-2024 ECG 12-LEAD IMPRESSION: Ventricular-paced rhythm No further analysis attempted due to paced rhythm No significant changes compared to previous Electronically Signed On 06-25-2024 18:44:17 EST by Kaiden David Normal [facility] ED Provider Noteon ED Provider Note Normal [facility] Laboratory - Chemistry and C hemistry - challengeon 06-25-2024 Glucose [Mass/Vol] 184 mg/dL High 70 - 100 mg/dL [facility] Troponin I.cardiac [Mass/Vol] 0.043 ng/mL High NINF - 0.034 ng/mL [facility] Troponin I.cardiac [Mass/Vol] 0.04 ng/mL High NINF - 0.034 ng/mL [facility] Glucose [Mass/Vol] 140 mg/dL High 70 - 100 mg/dL [facility] Laboratory - Coagulationon 1 08-25-2023 aPTT Coag (PPP) [Time] 25.1 s 20.0 - 30.5 s [facility] INR Coag (PPP) [Relative time] 1.2 {INR} High 0.9 - 1.1 [facility] PT Coag (Bld) [Time] 13.2 s High 9.0 - 1 2.0 s [facility] Laboratory - Microbiology an d Antimicrobial susceptibilityon 06-25-2024 FLUAV RNA HUGO+probe Ql (Resp) Not detected Not Detected [facility] FLUBV RNA HUGO+probe Ql (Resp) Not detected Not Detected [facility] RSV RNA HUGO+probe Ql (Resp) Not detected Not Detected [facility] SARS-CoV-2 (COVID-19) RNA HUGO+probe Ql (Resp) Not detected Not Detected [facility] No Panel Informationon 06-25 Interpretation and review of laboratory results Abnormal [facility] Heart Rate 97 bpm [facility] P [place] 46 degrees [facility] MT Interval 229 ms [facility] QRS [place] -12 degrees [facility] QRSD Interval 140 ms [facility] h QT Interval 399 ms [facility] QTC Interval 507 ms [facility] T Wave [place] 173 degrees [facility] CV EPIPHANY [facility] Interpretation and review of laboratory results Abnormal [facility] Interpretation and review of laboratory results Abnormal [facility] OCCULT BLOOD, STOOLon 2023 OCCULT BLOOD, STOOL FECAL OCCULT, STOOL (A) Reference Positive Negative ORDER COMMENTS: (A) Methodology: Immunoassay Normal [facility] Comment on above: Performed By: #### L [id number] ####Attendant Campground: RUTH ANN BRAGG ([phone])[facility] [place] [address] PROTIME AND APTTon aPTT Coag (Bld) [Time] 25.1 s Normal 20.0-30.5 [facility] Comment on above: Performed By: #### L [id number] ####Attendant Campground: RUTH ANN BRAGG ([phone])[facility] ([facility])[address] [place] [address] INR Coag (PPP) [Relative time] 1.2 {INR} High 0.9-1.1 [facility] Comment on above: Result Comment: Daniel [...] prevent Myocardial Infarction Performed By: #### L [id number] ####Attendant Campground: RUTH ANN BRAGG ([phone])[facility] ([facility])[address] [place] [address] PT Coag (PPP) [Time] 13.2 s High 9.0-12.0 [facility] Comment on above: Performed By: #### L [id number] ####Attendant Campground: RUTH ANN BRAGG ([phone])[facility] ([facility])[address] [place] [address] SARS-COV-2, FLU A/B, AND RSV COMBOon 06-25-2024 SARS-CoV-2 (COVID-19) RNA HUGO+probe Ql (Unsp spec) Normal [facility] Comment on above: Performed By: #### L [id number] ####Attendant Campground: RUTH ANN BRAGG ([phone])[facility] ([facility])[address] [place] [address] TROPONIN Ion 06-25-2024 Troponin I.cardiac [Mass/Vol] 0.042 ng/mL High <0.034 [facility] Comment on above: Result Comment: ORDE R COMMENTS:Patients with high levels of Biotin oral intake (ie >5 mg/day) may have falsely decreased Troponin levels. Performed By: #### L [id number] ####Attendant Campground: RUTH ANN OBREGONSHELTON ([phone])[facility] (HLAB)[address] Troponin I.cardiac [Mass/Vol] 0.043 ng/mL High <0.034 [facility] Comment on above: Result Comment: OLIVIA Mazariegos COMMENTS:Patients with high levels of Biotin oral intake (ie >5 mg/day) may have falsely decreased Troponin levels. Performed By: #### L [id number] ####Attendant Campground: RUTH ANN BRAGG ([phone])[facility] [place] [address] TROPONIN, WITH SERIAL REFLEX on 06-25-2024 Troponin I.cardiac [Mass/Vol] 0.040 ng/mL High <0.034 [facility] Comment on above: Result Comment: OLIVIA Mazariegos COMMENTS:Patients with high levels of Biotin oral intake (ie >5 mg/day) may have falsely decreased Troponin levels. Performed By: #### L [id number], LAB17 ####Attendant Campground: RUTH ANN OBREGONSHELTON ([phone])[facility] ([facility])[address] [place] [address] Troponin I.cardiac [Mass/Vol ]on 06-25-2024 Interpretation and review of laboratory results Abnormal [facility] Interpretation and review of laboratory results Abnormal [facility] URINE CULTUREon 06-25-2024 Bacteria identified Cx Nom (U) Normal [facility] Comment on above: Performed By: #### L [id number] ####Attendant Campground: CHERYL STOREY ([phone])[facility] (SACLAB[address] Urinalysis complete panel (U )Ordered By: Davion Day on 06-25-2024 Bacteria LM.HPF (Urine sed) [#/Area] Moderate Abnormal Negative /HPF [facility] Bilirubin Ql (U) Negative Negative mg/dL [facility] Clarity (U) Clear Clear [facility] Color (U) Light Yellow Lt. Yellow [facility] Epithelial cells.squamous LM.HPF (Urine sed) [#/Area] 0-2 [facility] Center Glucose Ql (U) Normal Normal (<70) mg/dL [facility] Hemoglobin Ql (U) Negative Negative mg/dL [facility] Interpretation and review of laboratory results Abnormal [facility] th Ketones (U) [Mass/Vol] Negative Negat balbina mg/dL [facility] Leukocyte clumps LM.HPF (Urine sed) [#/Area] Rare Abnormal Negative /HPF [facility] Leukocyte esterase Test strip Ql (U) 75 Abnormal Negative Yomi/uL [facility] Mucus LM.HPF (Urine sed) [#/Area] Few Negative /LPF [facility] Nitrite Ql (U) Negative Negative [facility] th pH (U) 5.0 [pH] 5.0 - 8.0 pH [facility] Protein (U) [Mass/Vol] 30 mg/dL Abnormal Negative [facility] RBC LM.HPF (Urine sed) [#/Area] 3-5 Abnormal [facility] Specific gravity (U) [Rel density] 1.018 1.005 - 1.030 [facility] Urobilinogen (U) [Mass/Vol] Normal Normal (0-1) mg/dL [facility] WBC LM.HPF (Urine sed) [#/Area] 11-25 Abnormal [facility] Yeast.budding LM.HPF (Urine sed) [#/Area] Few Abnormal Negative /HPF [facility] XR Chest Single viewon 06-25 [facility] RAD[facility] Radiology Study observation (narrative) Marya Ralph mckinney CNDEVORAHon 06-11-2024 CNOV Office Visit (FPDOYL) MIKEL WINSTON ([id number]) 1945 F Date Time Provider Department 06/11/24 1:00 PM KOMAL COHNYL During your visit today, we recorded the following information about you: Temperature Pulse Blood pressure Weight 97.8 degrees 92/minute 143/90 86.2 kg Height 1.626 m Komal Cohn DO 06/18/2024 7:25 PM Signed [facility] [place] Komal Cohn DO [address] [place] [address] Date of Evaluation: 06/11/2024 Patient Name: Mikel Winston : 1945 Chief Complaint: Patient presents with: Hospital Discharge: 06/01/24 [facility], pace maker placement. Skin Check: Skin tag right upper shoulder area Nursing Intake: There are no exam notes on file for this visit. Subjective Ms. Winston is a 78 year old female who presents with the following complaint(s): Patient presents to follow up from [facility] 05/29/24-06/01/24. Patient began to feel [...] 143/90 Pulse 92 Temp 97.8 Ht 5' 4" (1.63m) Wt 190 lb (86.2kg) SpO2 98% [...] intact. Co (more content not included)... Normal [facility] [id number] 06-07-2024 [id number] Patient Choice Patient Name: MIKEL WINSTON Date of : 1945 [facility] 06-06-2024 JATIN Telephone (FPDOYL) MIKEL WINSTON ([id number]) 1945 F Date Time Provider Department 06/06/24 KOMAL COHNYL During your visit today, we recorded the following information about you: Arnel Govea LPN 06/06/2024 4:22 PM Signed Christie with [facility] called and left a voicemail [...] Assessed Reason for Visit: Home Care Arrangements [[id number]] Prescriptions as of 06/06/2024 - blood sugar [...] Encounter Status:Closed by ARNEL GOVEA on 06/06/24 [facility] 30on 06-01-2024 30 Normal [facility] 30 The patient is Moderately Stable - Low risk of patient condition declining or worsening The patient's goals for the shift include comfort The clinical goals for the shift include no complications with new pacer and surgical site Goals met Normal [facility] [id number] 06-01-2024 [id number] [facility] [id number] 06-01-2024 [id number] Normal [facility] [id number] [facility] BASIC METABOLIC PANELon 05-09 Anion gap [Moles/Vol] 8 mmol/L Normal 3-13 [facility] Comment on above: Performed By: #### L [id number] ####Attendant Campground: CHERYL STOREY ([phone])[facility] ([address] Calcium [Mass/Vol] 9.0 mg/dL Normal 8.4-10.4 [facility] Comment on above: Performed By: #### L [id number] ####Attendant Campground: CHERYL STOREY ([phone])[facility] ([facility])[address] [place] [address] Chloride [Moles/Vol] 109 mmol/L High 98-107 [facility] Comment on above: Performed By: #### L [id number] ####Attendant Campground: CHERYL STOREY ([phone])[facility] ([facility])[address] [place] [address] CO2 [Moles/Vol] 20 mmol/L Low 22-30 [facility] Comment on above: Performed By: #### L [id number] ####Attendant Campground: CHERYL STOREY ([phone])[facility])[address] [place] [address] Creatinine [Mass/Vol] 2.62 mg/dL High 0.52-1.04 [facility] Comment on above: Performed By: #### L [id number] ####Attendant Campground: CHERYL STOREY ([phone])[facility])[address] [place] [address] GLOMERULAR FILTRATION RATE ML/MIN/1.73 SQ M.PREDICTED 18.2 mL/min/1.73m*2 Low >60.0 [facility] Comment on above: Result Comment: Calc ulation based on the Chronic Kidney Disease Epidemiology Collaboration (CKD-EPI) equation refit without adjustment for race Performed By: #### L [id number] ####Attendant Campground: CHERYL STOREY ([phone])[facility])[address] [place] [address] Glucose [Mass/Vol] 168 mg/dL High 70-100 [facility] Comment on above: Performed By: #### L [id number] ####Attendant Campground: CHERYL STOREY ([phone])[facility])[address] [place] [address] Potassium [Moles/Vol] 4.0 mmol/L Normal 3.5-5.1 [facility] Comment on above: Performed By: #### L [id number] ####Attendant Campground: CHERYL STOREY ([phone])[facility] ([facility])[address] [place] [address] Sodium [Moles/Vol] 137 mmol/L Normal 135-145 [facility] Comment on above: Performed By: #### L [id number] ####Attendant Campground: CHERYL STOREY ([phone])[facility] ([facility])[address] [place] [address] Urea nitrogen [Mass/Vol] 62 mg/dL High 7-17 [facility] Comment on above: Performed By: #### L [id number] ####Attendant Campground: CHERYL STOREY ([phone])[facility] ([facility])[address] [place] [address] Basic metabolic 1998 panelon 06-01-2024 Anion gap [Moles/Vol] 8 mmol/L 3 - 13 mmol/L [facility] Calcium [Mass/Vol] 9 mg/dL 8.4 - 10. 4 mg/dL [facility] Chloride [Moles/Vol] 109 mmol/L High 98 - 10 7 mmol/L [facility] CO2 [Moles/Vol] 20 mmol/L Low 22 - 30 mmol/L [facility] Creatinine [Mass/Vol] 2.62 mg/dL High 0.52 - 1.04 mg/dL [facility] GFR/1.73 sq M.predicted (S/P/Bld) [Vol rate/Area] 18.2 mL/min Low - PINF [facility] Comment on above: Calculation based on the Chronic Kidney Disease Epidemiology Collaboration (CKD-EPI) equation refit without adjustment for race Glucose [Mass/Vol] 168 mg/dL High 70 - 100 mg/dL [facility] Interpretation and review of laboratory results Abnormal [facility] Potassium [Moles/Vol] 4 mmol/L 3.5 - 5.1 mmol/L [facility] Sodium [Moles/Vol] 137 mmol/L 135 - 145 mmol/L [facility] Urea nitrogen [Mass/Vol] 62 mg/dL High 7 - 17 mg/dL [facility] CBC W Auto Differential pane l (Bld)Ordered By: Guy Carl on 06-01-2024 Basophils (Bld) [#/Vol] 0 10*3/uL 0.0 - 0.2 10*3/uL [facility] Basophils/100 WBC (Bld) 0.4 % 0.0 - 2.0 % [facility] Eosinophils (Bld) [#/Vol] 0.2 10*3/uL 0. 0 - 0.5 10*3/uL [facility] Eosinophils/100 WBC (Bld) 2 % 0.0 - 6.0 % [facility] Erythrocyte distribution width (RBC) [Ratio] 14.7 % 11.5 - 15.0 % [facility] Hematocrit (Bld) [Volume fraction] 27.6 % Low 35.0 - 47.0 % [facility] Hemoglobin (Bld) [Mass/Vol] 8.7 g/dL Low 11.7 - 16.0 g/dL [facility] Immature granulocytes (Bld) [#/Vol] 0 10*3/uL NINF - 0.1 10*3/uL [facility] Immature granulocytes/100 WBC (Bld) 0.5 % 0.0 - 2.0 % [facility] Interpretation and review of laboratory results Abnormal [facility] th IPF 6 [facility] Lymphocytes (Bld) [#/Vol] 1.1 10*3/uL 1. 0 - 4.3 10*3/uL [facility] Lymphocytes/100 WBC (Bld) 14.6 % Low 15 .0 - 45.0 % [facility] MCH (RBC) [Entitic mass] 31.5 pg 26. 0 - 34.0 pg [facility] MCHC (RBC) [Mass/Vol] 31.5 % 30.5 - 36.0 % [facility] MCV (RBC) [Entitic vol] 100 fL High 77.0 - 99.0 fL [facility] Monocytes (Bld) [#/Vol] 1.4 10*3/uL High 0.0 - 0.9 10*3/uL [facility] Monocytes/100 WBC (Bld) 18.9 % High 5.0 - 13.0 % [facility] Neutrophils (Bld) [#/Vol] 4.7 10*3/uL 1. 8 - 7.5 10*3/uL [facility] Neutrophils/100 WBC (Bld) 63.6 % 38 .0 - 82.0 % [facility] Nucleated RBC/100 WBC (Bld) [Ratio] 0 % [facility] Platelet mean volume (Bld) [Entitic vol] 12.4 fL 9.0 - 12.7 fL [facility] Platelets (Bld) [#/Vol] 83 10*3/uL Low 140 - 440 10*3/uL [facility] RBC (Bld) [#/Vol] 2.76 10*6/uL Low 3.80 - 5.2 0 10*6/uL [facility] WBC (Bld) [#/Vol] 7.3 10*3/uL 3.6 - 10.7 10*3/uL [facility] CBC WITH AUTO DIFFERENTIALon 06-01-2024 Basophils (Bld) [#/Vol] 0.0 10*3/uL Normal 0.0-0.2 [facility] Comment on above: Performed By: #### L [id number] ####Attendant Campground: CHERYL STOREY ([phone])[facility])[address] [place] [address] Basophils/100 WBC (Bld) 0.4 % Normal 0.0-2.0 S [facility] Comment on above: Performed By: #### L [id number] ####Attendant Campground: CHERYL STOREY ([phone])[facility])[address] [place] [address] Eosinophils (Bld) [#/Vol] 0.2 10*3/uL Normal 0.0-0.5 [facility] Comment on above: Performed By: #### L [id number] ####Attendant Campground: CHERYL STOREY ([phone])[facility])[address] [place] [address] Eosinophils/100 WBC (Bld) 2.0 % Normal 0.0-6.0 [facility] Comment on above: Performed By: #### L [id number] ####Attendant Campground: CHERYL STOREY ([phone])[facility])[address] [place] [address] Erythrocyte distribution width (RBC) [Ratio] 14.7 % Normal 11.5-15.0 [facility] Comment on above: Performed By: #### L [id number] ####Attendant Campground: CHERYL STOREY ([phone])[facility] ([facility])[address] [place] [address] Hematocrit (Bld) [Volume fraction] 27.6 % Low 35.0-47.0 [facility] Comment on above: Performed By: #### L [id number] ####Attendant Campground: CHERYL STOREY ([phone])[facility])[address] [place] [address] Hemoglobin (Bld) [Mass/Vol] 8.7 g/dL Low 11.7-16.0 [facility] Comment on above: Performed By: #### L [id number] ####Attendant Campground: CHERYL STOREY ([phone])[facility])[address] [place] [address] IMMATURE GRANS % 0.5 % Normal 0.0-2.0 [facility] Comment on above: Performed By: #### L [id number] ####Attendant Campground: CHERYL STOREY ([phone])[facility])[address] [place] [address] IMMATURE GRANS ABSOLUTE 0.0 10*3/uL Normal <0.1 [facility] Comment on above: Performed By: #### L [id number] ####Attendant Campground: CHERYL STOREY ([phone])[facility])[address] [place] [address] [place] IPF 6 Normal [facility] Comment on above: Performed By: #### L [id number] ####Attendant Campground: CHERYL STOREY ([phone])[facility] ([facility])[address] [place] [address] Lymphocytes (Bld) [#/Vol] 1.1 10*3/uL Normal 1.0-4.3 [facility] Comment on above: Performed By: #### L [id number] ####Attendant Campground: CHERYL STOREY ([phone])[facility] ([facility])[address] [place] [address] [place] Lymphocytes/100 WBC (Bld) 14.6 % Low 15.0-45.0 [facility] Comment on above: Performed By: #### L [id number] ####Attendant Campground: CHERYL STOREY ([phone])[facility])[address] [place] [address] MCH (RBC) [Entitic mass] 31.5 pg Normal 26.0-34.0 [facility] Comment on above: Performed By: #### L [id number] ####Attendant Campground: CHERYL STOREY ([phone])[facility])[address] [place] [address] MCHC 31.5 % Normal 30.5-36.0 [facility] Comment on above: Performed By: #### L [id number] ####Attendant Campground: CHERYL STOREY ([phone])[facility])[address] [place] [address] MCV (RBC) [Entitic vol] 100.0 fL High 77.0-99.0 S [facility] Comment on above: Performed By: #### L [id number] ####Attendant Campground: CHERYL STOREY ([phone])[facility])[address] [place] [address] Monocytes (Bld) [#/Vol] 1.4 10*3/uL High 0.0-0.9 [facility] Comment on above: Performed By: #### L [id number] ####Attendant Campground: CHERYL STOREY ([phone])[facility])[address] [place] [address] Monocytes/100 WBC (Bld) 18.9 % High 5.0-13.0 S [facility] Comment on above: Performed By: #### L [id number] ####Attendant Campground: CHERYL STOREY ([id number])[facility])[address] [place] [address] NEUTROPHILS ABSOLUTE 4.7 10*3/uL Normal 1.8-7.5 [facility] Comment on above: Performed By: #### L [id number] ####Attendant Campground: CHERYL STOREY ([phone])[facility] ([facility])[address] [place] [address] Neutrophils/100 WBC (Bld) 63.6 % Normal 38.0-82.0 [facility] Comment on above: Performed By: #### L [id number] ####Attendant Campground: CHERYL STOREY ([phone])[facility] ([facility])[address] [place] [address] NRBC 0.0 /100 WBCs Normal 0.0-2.0 [facility] Comment on above: Performed By: #### L [id number] ####Attendant Campground: CHERYL STOREY ([phone])[facility] ([facility])[address] [place] [address] Platelet mean volume (Bld) [Entitic vol] 12.4 fL Normal 9.0-12.7 [facility] Comment on above: Performed By: #### L [id number] ####Attendant Campground: CHERYL STOREY ([phone])[facility] ([facility])[address] [place] [address] Platelets (Bld) [#/Vol] 83 10*3/uL Low 140-440 S [facility] Comment on above: Performed By: #### L [id number] ####Attendant Campground: CHERYL STOREY ([phone])[facility] ([facility])[address] [place] [address] RBC (Bld) [#/Vol] 2.76 10*6/uL Low 3.80-5.20 [facility] Comment on above: Performed By: #### L [id number] ####Attendant Campground: CHERYL STOREY ([phone])[facility] ([facility])[address] [place] [address] WBC (Bld) [#/Vol] 7.3 10*3/uL Normal 3.6-10.7 [facility] Comment on above: Performed By: #### L [id number] ####Attendant Campground: CHERYL STOREY ([phone])[facility] ([facility])[address] ECG 12-LEADon 06-01-2024 ECG 12-LEAD IMPRESSION: Atrial-ventricular dual-paced complexes Electronically Signed On 06-01-2024 11:57:52 EDT by Wil Portillo [facility] ECG 12-LEAD IMPRESSION: SINUS RHYTHM Ventricular-pacing Electronically Signed On 06-01-2024 07:44:58 EDT by Wil Portillo [facility] Laboratory - Chemistry and C hemistry - challengeon 06-01-2024 Glucose [Mass/Vol] 148 mg/dL High 70 - 100 mg/dL [facility] Glucose [Mass/Vol] 149 mg/dL High 70 - 100 mg/dL [facility] [employer] No Panel InformationOrdered By: Wil Portillo on 06-01-2024 P [place] 0 degrees [facility] Work Phone: MT Interval 199 ms [facility] Work Phone: QRS [place] 6 degrees [facility] Work Phone: QRSD Interval 148 ms [facility] Work Phone: QT Interval 509 ms [facility] Work Phone: QTC Interval 509 ms [facility] Work Phone: T Wave [place] 236 degrees [facility] Work Phone: [facility] Work Phone: No Panel Informationon 06-01 Atrial-ventricular dual-paced complexes Electronically Signed On 06-01-2024 11:57:52 EDT by Wil Alvarado MD - 06/01/2024 IMPRESSION: Atrial-ventricular dual-paced complexes Electronically Signed On 06-01-2024 11:57:52 EDT by Wil Portillo [facility] Interpretation and review of laboratory results Abnormal [facility] Performed by: [facility], [address] [place] [address] CLIA ID: [id number] [facility] [employer] [facility] P [place] -26 degrees [facility] MT Interval 233 ms [facility] [employer] QRS [place] -70 degrees [facility] QRSD Interval 142 ms [facility] QT Interval 475 ms [facility] QTC Interval 508 ms [facility] T Wave [place] 126 degrees [facility] SINUS RHYTHM Ventricular-pacing Electronically Signed On 06-01-2024 07:44:58 EDT by Wil Alvarado MD - 06/01/2024 IMPRESSION: SINUS RHYTHM Ventricular-pacing Electronically Signed On 06-01-2024 07:44:58 EDT by Wil Portillo [facility] Interpretation and review of laboratory results Abnormal [facility] th Performed by: [facility], [address] [place] [address] CLIA ID: [id number] [facility] Nursing Noteon 06-01-2024 Nursing Note RN removed patients ivs. RN reviewed discharge instructions with patient. Patient belongings gathered. Patient ready for discharge waiting for ride. Normal [facility] Progress Noteon 06-01-2024 Progress Note BMP orders for 1 week post hospital prior to PCP appt. Normal [facility] Progress Note Normal [facility] Vital signsOrdered By: Wil Portillo on 06-01-2024 Heart rate 60 /min bpm [facility] Work Phone: Vital signson 06-01-2024 Heart rate 68 /min bpm [facility] XR CHEST 2 VIEWSon 4 XR CHEST 2 VIEWS Normal [facility] XR Chest 2 Viewson 4 Diffuse interstitial thickening similar to previous exam. Report Dictated on Electronically Signed By: Wayne Cardenas MD Electronically Signed Date/Time: 06/01/2024 11:33 AM EDT [facility] [employer] [facility] Name[facility] MIKEL [facility]INST[facility] 1945 [id number] Exam Date/Time: 06/01/2024 10:48 Procedure: XR CHEST [...] noted similar to previous exam. Bones: Unremarkable [facility] Wayne Cardenas MD - 06/01/2024 Patient Name: MIKEL WINSTON : 1945 [id number] Exam Date/Time: 06/01/2024 10:48 Procedure: XR CHEST [...] Electronically Signed Date/Time: 06/01/2024 11:33 AM EDT [facility] Radiology Study observation (narrative) [facility] XR Chest 2 ViewsOrdered By: Wayne Cardenas on 06-01-2024 [facility] Work Phone: 30on 05-31-2024 30 Normal [facility] 30 The patient is Moderately Stable - Low risk of patient condition declining or worsening The patient's goals for the shift include no chest pain The clinical goals for the shift include no symptomatic bradycardia Goals met over the shift Normal [facility] [id number] 05-31-2024 [id number] Normal [facility] Anesthesia Noteon 05-31-2024 Anesthesia Note Normal [facility] BASIC METABOLIC PANELon 05-09 Anion gap [Moles/Vol] 8 mmol/L Normal 3-13 [facility] Comment on above: Performed By: #### L [id number] ####Attendant Campground: CHERYL STOREY ([phone])[facility] [place] [address] Calcium [Mass/Vol] 9.3 mg/dL Normal 8.4-10.4 [facility] Comment on above: Performed By: #### L [id number] ####Attendant Campground: CHERYL STOREY ([phone])[facility] [place] [address] [place] Chloride [Moles/Vol] 108 mmol/L High 98-107 [facility] Comment on above: Performed By: #### L [id number] ####Attendant Campground: CHERYL STOREY ([phone])[facility] ([facility])[address] [place] [address] CO2 [Moles/Vol] 21 mmol/L Low 22-30 [facility] Comment on above: Performed By: #### L AB15 ####Attendant Campground: CHERYL STOREY ([phone])[facility] ([facility])[address] [place] [address] Creatinine [Mass/Vol] 2.53 mg/dL High 0.52-1.04 [facility] Comment on above: Performed By: #### L AB15 ####Attendant Campground: CHERYL STOREY ([phone])[facility] ([facility])[address] [place] [address] [place] GLOMERULAR FILTRATION RATE ML/MIN/1.73 SQ M.PREDICTED 19.0 mL/min/1.73m*2 Low >60.0 [facility] Comment on above: Result Comment: Calc ulation based on the Chronic Kidney Disease Epidemiology Collaboration (CKD-EPI) equation refit without adjustment for race Performed By: #### L [id number] ####Attendant Campground: CHERYL STOREY ([phone])[facility] ([facility])[address] [place] [address] [place] Glucose [Mass/Vol] 102 mg/dL High 70-100 [facility] Comment on above: Performed By: #### L AB15 ####Attendant Campground: CHERYL STOREY ([phone])[facility] ([facility])[address] [place] [address] Potassium [Moles/Vol] 4.1 mmol/L Normal 3.5-5.1 [facility] Comment on above: Performed By: #### L [id number] ####Attendant Campground: CHERYL STOREY ([phone])[facility] ([facility])[address] [place] [address] Sodium [Moles/Vol] 136 mmol/L Normal 135-145 [facility] Comment on above: Performed By: #### L [id number] ####Attendant Campground: CHERYL STOREY ([phone])[facility] ([facility])[address] [place] [address] Urea nitrogen [Mass/Vol] 57 mg/dL High 7-17 [facility] Comment on above: Performed By: #### L [id number] ####Attendant Campground: CHERYL STOREY ([phone])[facility] [place] [address] Basic metabolic 1998 panelon 05-31-2024 Anion gap [Moles/Vol] 8 mmol/L 3 - 13 mmol/L [facility] [facility] Calcium [Mass/Vol] 9.3 mg/dL 8.4 - 10. 4 mg/dL [facility] Chloride [Moles/Vol] 108 mmol/L High 98 - 10 7 mmol/L [facility] CO2 [Moles/Vol] 21 mmol/L Low 22 - 30 mmol/L [facility] Creatinine [Mass/Vol] 2.53 mg/dL High 0.52 - 1.04 mg/dL [facility] GFR/1.73 sq M.predicted (S/P/Bld) [Vol rate/Area] 19 mL/min Low - PINF [facility] Comment on above: Calculation based on the Chronic Kidney Disease Epidemiology Collaboration (CKD-EPI) equation refit without adjustment for race Glucose [Mass/Vol] 102 mg/dL High 70 - 100 mg/dL [facility] Interpretation and review of laboratory results Abnormal [facility] Potassium [Moles/Vol] 4.1 mmol/L 3.5 - 5.1 mmol/L [facility] Sodium [Moles/Vol] 136 mmol/L 135 - 145 mmol/L [facility] Urea nitrogen [Mass/Vol] 57 mg/dL High 7 - 17 mg/dL [facility] CBC W Auto Differential pane l (Bld)Ordered By: Erica Bronson on 05-31-2024 Basophils (Bld) [#/Vol] 0.1 10*3/uL 0.0 - 0.2 10*3/uL [facility] Basophils/100 WBC (Bld) 0.8 % 0.0 - 2.0 % [facility] Eosinophils (Bld) [#/Vol] 0.2 10*3/uL 0. 0 - 0.5 10*3/uL [facility] Eosinophils/100 WBC (Bld) 2.6 % 0.0 - 6.0 % [facility] Erythrocyte distribution width (RBC) [Ratio] 14.4 % 11.5 - 15.0 % [facility] Hematocrit (Bld) [Volume fraction] 27.1 % Low 35.0 - 47.0 % [facility] Hemoglobin (Bld) [Mass/Vol] 8.8 g/dL Low 11.7 - 16.0 g/dL [facility] Immature granulocytes (Bld) [#/Vol] 0 10*3/uL NINF - 0.1 10*3/uL [facility] Immature granulocytes/100 WBC (Bld) 0.3 % 0.0 - 2.0 % [facility] Interpretation and review of laboratory results Abnormal [facility] th IPF 8 [facility] Lymphocytes (Bld) [#/Vol] 1.4 10*3/uL 1. 0 - 4.3 10*3/uL [facility] Lymphocytes/100 WBC (Bld) 22 % 15 .0 - 45.0 % [facility] MCH (RBC) [Entitic mass] 31.7 pg 26. 0 - 34.0 pg [facility] MCHC (RBC) [Mass/Vol] 32.5 % 30.5 - 36.0 % [facility] MCV (RBC) [Entitic vol] 97.5 fL 77.0 - 99.0 fL [facility] Monocytes (Bld) [#/Vol] 1.2 10*3/uL High 0.0 - 0.9 10*3/uL [facility] Monocytes/100 WBC (Bld) 18.6 % High 5.0 - 13.0 % [facility] Neutrophils (Bld) [#/Vol] 3.6 10*3/uL 1. 8 - 7.5 10*3/uL [facility] Neutrophils/100 WBC (Bld) 55.7 % 38 .0 - 82.0 % [facility] Nucleated RBC/100 WBC (Bld) [Ratio] 0 % [facility] Platelet mean volume (Bld) [Entitic vol] 12.5 fL 9.0 - 12.7 fL [facility] Platelets (Bld) [#/Vol] 85 10*3/uL Low 140 - 440 10*3/uL [facility] RBC (Bld) [#/Vol] 2.78 10*6/uL Low 3.80 - 5.2 0 10*6/uL [facility] WBC (Bld) [#/Vol] 6.4 10*3/uL 3.6 - 10.7 10*3/uL [facility] CBC WITH AUTO DIFFERENTIALon 05-31-2024 Basophils (Bld) [#/Vol] 0.1 10*3/uL Normal 0.0-0.2 [facility] Comment on above: Performed By: #### L [id number] ####Attendant Campground: CHERYL STOREY ([phone])[address] Basophils/100 WBC (Bld) 0.8 % Normal 0.0-2.0 [facility] Comment on above: Performed By: #### L [id number] ####Attendant Campground: CHERYL STOREY ([phone])[facility] ([facility])[address] [place] [address] Eosinophils (Bld) [#/Vol] 0.2 10*3/uL Normal 0.0-0.5 [facility] Comment on above: Performed By: #### L [id number] ####Attendant Campground: CHERYL STOREY ([phone])[facility])[address] [place] [address] Eosinophils/100 WBC (Bld) 2.6 % Normal 0.0-6.0 [facility] Comment on above: Performed By: #### L [id number] ####Attendant Campground: CHERYL STOREY ([phone])[address] Erythrocyte distribution width (RBC) [Ratio] 14.4 % Normal 11.5-15.0 [facility] Comment on above: Performed By: #### L [id number] ####Attendant Campground: CHERYL STOREY ([phone])[facility])[address] [place] [address] Hematocrit (Bld) [Volume fraction] 27.1 % Low 35.0-47.0 [facility] Comment on above: Performed By: #### L [id number] ####Attendant Campground: CHERYL STOREY ([phone])[address] Hemoglobin (Bld) [Mass/Vol] 8.8 g/dL Low 11.7-16.0 [facility] Comment on above: Performed By: #### L [id number] ####Attendant Campground: CHERYL STOREY ([phone])[facility])[address] [place] [address] IMMATURE GRANS % 0.3 % Normal 0.0-2.0 [facility] Comment on above: Performed By: #### L [id number] ####Attendant Campground: CHERYL STOREY ([phone])[address] IMMATURE GRANS ABSOLUTE 0.0 10*3/uL Normal <0.1 [facility] Comment on above: Performed By: #### L [id number] ####Attendant Campground: CHERYL STOREY ([phone])[address] IPF 8 Normal [facility] Comment on above: Performed By: #### L [id number] ####Attendant Campground: CHERYL STOREY ([phone])[address] Lymphocytes (Bld) [#/Vol] 1.4 10*3/uL Normal 1.0-4.3 [facility] Comment on above: Performed By: #### L [id number] ####Attendant Campground: CHERYL STOREY ([phone])[facility])[address] [place] [address] Lymphocytes/100 WBC (Bld) 22.0 % Normal 15.0-45.0 [facility] Comment on above: Performed By: #### L [id number] ####Attendant Campground: CHERYL STOREY ([phone])[facility])[address] [place] [address] MCH (RBC) [Entitic mass] 31.7 pg Normal 26.0-34.0 [facility] Comment on above: Performed By: #### L [id number] ####Attendant Campground: CHERYL STOREY ([phone])[facility])[address] [place] [address] MCHC 32.5 % Normal 30.5-36.0 [facility] Comment on above: Performed By: #### L [id number] ####Attendant Campground: CHERYL STOREY ([phone])[facility])[address] [place] [address] MCV (RBC) [Entitic vol] 97.5 fL Normal 77.0-99.0 [facility] Comment on above: Performed By: #### L [id number] ####Attendant Campground: CHERYL STOREY ([phone])[facility])[address] [place] [address] Monocytes (Bld) [#/Vol] 1.2 10*3/uL High 0.0-0.9 [facility] Comment on above: Performed By: #### L [id number] ####Attendant Campground: CHERYL STOREY ([phone])[facility])[address] [place] [address] Monocytes/100 WBC (Bld) 18.6 % High 5.0-13.0 [facility] Comment on above: Performed By: #### L [id number] ####Attendant Campground: CHERYL STOREY ([phone])[facility] ([facility])[address] [place] [address] NEUTROPHILS ABSOLUTE 3.6 10*3/uL Normal 1.8-7.5 [facility] Comment on above: Performed By: #### L [id number] ####Attendant Campground: CHERYL STOREY ([phone])[facility] ([facility])[address] [place] [address] Neutrophils/100 WBC (Bld) 55.7 % Normal 38.0-82.0 [facility] Comment on above: Performed By: #### L [id number] ####Attendant Campground: CHERYL STOREY ([phone])[facility] ([facility])[address] [place] [address] NRBC 0.0 /100 WBCs Normal 0.0-2.0 [facility] Comment on above: Performed By: #### L [id number] ####Attendant Campground: CHERYL STOREY ([phone])[facility] ([facility])[address] [place] [address] Platelet mean volume (Bld) [Entitic vol] 12.5 fL Normal 9.0-12.7 [facility] Comment on above: Performed By: #### L [id number] ####Attendant Campground: CHERYL STOREY ([phone])[facility] ([facility])[address] [place] [address] [place] Platelets (Bld) [#/Vol] 85 10*3/uL Low 140-440 [facility] Comment on above: Performed By: #### L [id number] ####Attendant Campground: CHERYL STOREY ([phone])[facility] ([facility])[address] [place] [address] RBC (Bld) [#/Vol] 2.78 10*6/uL Low 3.80-5.20 [facility] Comment on above: Performed By: #### L [id number] ####Attendant Campground: CHERYL STOREY ([phone])[facility] ([facility])[address] [place] [address] WBC (Bld) [#/Vol] 6.4 10*3/uL Normal 3.6-10.7 [facility] Comment on above: Performed By: #### L [id number] ####Attendant Campground: CHERYL STOREY ([phone])[facility] ([facility])[address] [place] [address] Consulton 05-31-2024 Consult Normal [facility] Electrophysiology studyon Successful implantation of a dual chamber permanent pacemaker via the left axillary vein. PLAN: - 2-view CXR in AM. - Device interrogation in AM - The patient will be observed overnight and will likely go home in the morning pending above. CV CPACS HEMO [facility] Laboratory - Chemistry and C hemistry - challengeon 05-31-2024 Glucose [Mass/Vol] 156 mg/dL High 70 - 100 mg/dL [facility] Glucose [Mass/Vol] 108 mg/dL High 70 - 100 mg/dL [facility] Glucose [Mass/Vol] 130 mg/dL High 70 - 100 mg/dL [facility] Glucose [Mass/Vol] 107 mg/dL High 70 - 100 mg/dL [facility] No Panel Informationon 05-31 Interpretation and review of laboratory results Abnormal [facility] th Performed by: [facility], [address] [place] [address] CLIA ID: [id number] [facility] Interpretation and review of laboratory results Abnormal [facility] th Performed by: [facility], [address] [place] [address] CLIA ID: [id number] [facility] Interpretation and review of laboratory results Abnormal [facility] th Performed by: [facility], [address] [place] [address] CLIA ID: [id number] [facility] Predominant 2:1 AV block Likely type 2 Right bundle branch block LAFB Poor R Wave progression Electronically Signed On 05-31-2024 10:23:14 EDT by Huy Frederick Huy Jin MD - 05/31/2024 IMPRESSION: Predominant 2:1 AV block Likely type 2 Right bundle branch block LAFB Poor R Wave progression Electronically Signed On 05-31-2024 10:23:14 EDT by Huy Frederick [employer] Interpretation and review of laboratory results Abnormal [facility] [employer] [facility] th Performed by: [place] [facility], [address] [place] [address] CLIA ID: [id number] [employer] No Panel InformationOrdered By: Huy Frederick on 05-31-2024 P [place] 54 degrees [employer] Phone: MT Interval 282 ms [employer] Phone: QRS [place] -64 degrees [employer] Phone: QRSD Interval 172 ms [employer] Phone: QT Interval 679 ms [employer] Phone: QTC Interval 494 ms [employer] Phone: T Wave [place] -16 degrees [employer] Phone: [employer] Phone: Progress Noteon 05-31-2024 Progress Note Normal [employer] [facility] Progress Note Normal [employer] [facility] Progress Note Nutrition rescreen completed. Chart reviewed. 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 Pt is currently not active with [employer] [facility], was discharged 05/09/2024. Normal [employer] [id number] 05-30-2024 [id number] Normal [facility] Consulton 05-30-2024 Consult Normal [facility] ECG 12-LEADon 05-30-2024 ECG 12-LEAD IMPRESSION: Sinus bradycardia Prolonged MT interval Right bundle branch block LVH with secondary repolarization abnormality Inferior infarct, old Electronically Signed On 05-30-2024 03:56:08 EDT by Jade Byrd [facility] Laboratory - Chemistry and C hemistry - challengeon 05-30-2024 TSH Qn 3.912 m[IU]/L [facility] h Glucose [Mass/Vol] 183 mg/dL High 70 - 100 mg/dL [facility] Glucose [Mass/Vol] 153 mg/dL High 70 - 100 mg/dL [facility] Glucose [Mass/Vol] 176 mg/dL High 70 - 100 mg/dL [facility] Glucose [Mass/Vol] 117 mg/dL High 70 - 100 mg/dL [facility] Laboratory - Chemistry and C hemistry - challengeOrdered By: Ovidio Carson on 05-30-2024 Troponin I.cardiac [Mass/Vol] 0.145 ng/mL Critically high NINF - 0.034 ng/mL [facility] No Panel Informationon 05-30 Interpretation and review of laboratory results Abnormal [facility] th Performed by: [facility], [address] [facility] [address] CLIA ID: [id number] [facility] Interpretation and review of laboratory results Abnormal [facility] th Performed by: [facility], [address] [place] [address] CLIA ID: [id number] [facility] Interpretation and review of laboratory results Abnormal [facility] th Performed by: [facility], [address] [facility] [address] CLIA ID: [id number] [facility] Interpretation and review of laboratory results Abnormal [facility] th Performed by: [facility], [address] [facility] [address] CLIA ID: [id number] [facility] Sinus bradycardia Prolonged MT interval Right bundle branch block LVH with secondary repolarization abnormality Inferior infarct, old Electronically Signed On 05-30-2024 03:56:08 EDT by Jade Loo CV BHAKTI Loo, Jade Mendoza, DO - 05/30/2024 IMPRESSION: Sinus bradycardia Prolonged MT interval Right bundle branch block LVH with secondary repolarization abnormality Inferior infarct, old Electronically Signed On 05-30-2024 03:56:08 EDT by Jade Loo [facility] Panel InformationOrdered By: Jade Loo on 05-30-2024 P [place] -26 degrees [employer] Work Phone: MT Interval 266 ms [employer] Phone: QRS [place] -59 degrees [employer] Phone: QRSD Interval 177 ms [employer] Phone: QT Interval 684 ms [employer] Phone: QTC Interval 517 ms [employer] Phone: T Wave [place] 142 degrees [employer] Phone: [employer] Phone: Nursing Noteon 05-30-2024 Nursing Note Report called to [facility] . Pt and family aware of transport to facility. Normal [facility] [employer] [facility] Progress Noteon 05-30-2024 Progress Note [facility] Progress Note [facility] Progress Note Normal [facility] Progress Note Normal [facility] THYROID STIMULATING HORMONEo n 05-30-2024 THYROID STIMULATING HORMONE 3.912 uIU/mL Normal 0.465-4.680 [facility] Comment on above: Performed By: #### L [id number] ####Attendant Campground: CHERYL STOREY ([phone])[facility] ([address] TROPONIN Ion 05-30-2024 Troponin I.cardiac [Mass/Vol] 0.145 ng/mL Critically high <0.034 [facility] Comment on above: Result Comment: OLVIIA R COMMENTS:Patients with high levels of Biotin oral intake (ie >5 mg/day) may have falsely decreased Troponin levels. Performed By: #### L [id number] ####Attendant Campground: RUTH ANN BRAGG ([phone])[facility] ([facility])[address] [place] [address] [place] TSH Qnon 05-30-2024 Interpretation and review of laboratory results Normal [facility] Troponin I.cardiac [Mass/Vol ]Ordered By: Ovidio Carson on 05-30-2024 Interpretation and review of laboratory results Abnormal [facility] Patients with high levels of Biotin oral intake (ie >5 mg/day) may have falsely decreased Troponin levels. [facility] Vital signsOrdered By: Jade Cinda on 05-30-2024 Heart rate 34 /min bpm [facility] Work Phone: BASIC METABOLIC PANELon 05-09 Anion gap [Moles/Vol] 11 mmol/L Normal 3-13 [facility] Comment on above: Performed By: #### L AB15, PEB070, [id number], [id number] ####Attendant Campground: RUTH ANN BRAGG ([phone])[facility] ([facility] Calcium [Mass/Vol] 9.5 mg/dL Normal 8.4-10.4 [facility] Comment on above: Performed By: #### L AB15, [id number], YEU461, [id number] ####Attendant Campground: RUTH ANN BRAGG ([phone])[facility] ([facility])[address] [place] [address] [place] Chloride [Moles/Vol] 106 mmol/L Normal 98-107 [facility] Comment on above: Performed By: #### L AB15, GID644, [id number], [id number] ####Attendant Campground: RUTH ANN BRAGG ([phone])[facility] ([facility])[address] CO2 [Moles/Vol] 20 mmol/L Low 22-[address] [facility] Comment on above: Performed By: #### L AB15, [id number], [id number], [id number] ####Attendant Campground: RUTH ANN BRAGG ([phone])[facility] ([facility])[address] Creatinine [Mass/Vol] 2.01 mg/dL High 0.52-1.04 [facility] Comment on above: Performed By: #### L AB15, SIA718, KLG049, [id number] ####Attendant Campground: RUTH ANN BRAGG ([phone])[facility] ([facility])[address] GLOMERULAR FILTRATION RATE ML/MIN/1.73 SQ M.PREDICTED 25.0 mL/min/1.73m*2 Low >60.0 [facility] Comment on above: Result Comment: Calc ulation based on the Chronic Kidney Disease Epidemiology Collaboration (CKD-EPI) equation refit without adjustment for race Performed By: #### L AB15, KSE764, KYX463, [id number] ####Attendant Campground: RUTH ANN BRAGG ([phone])[facility] ([facility])[address] Glucose [Mass/Vol] 122 mg/dL High 70-100 [facility] Comment on above: Performed By: #### L AB15, JFL885, JNQ085, [id number] ####Attendant Campground: RUTH ANN BRAGG ([phone])[facility] ([facility])[address] Potassium [Moles/Vol] 4.0 mmol/L Normal 3.5-5.1 [facility] Comment on above: Performed By: #### L AB15, FQI104, [id number], [id number] ####Attendant Campground: RUTH ANN BRAGG ([phone])[facility] ([facility])[address] [place] [address] [place] Sodium [Moles/Vol] 137 mmol/L Normal 135-145 [facility] Comment on above: Performed By: #### L AB15, DVQ776, QME974, [id number] ####Attendant Campground: RUTH ANN BRAGG ([phone])[facility] ([facility])[address] Urea nitrogen [Mass/Vol] 42 mg/dL High 7-17 [facility] Comment on above: Performed By: #### L AB15, COY135, KWF128, [id number] ####Attendant Campground: RUTH ANN BRAGG ([phone])[facility] [place] ([facility])[address] Basic metabolic 1998 panelon 05-29-2024 Anion gap [Moles/Vol] 11 mmol/L 3 - 13 mmol/L [facility] Calcium [Mass/Vol] 9.5 mg/dL 8.4 - 10. 4 mg/dL [facility] Chloride [Moles/Vol] 106 mmol/L 98 - 10 7 mmol/L [facility] CO2 [Moles/Vol] 20 mmol/L Low 22 - 30 mmol/L [facility] Creatinine [Mass/Vol] 2.01 mg/dL High 0.52 - 1.04 mg/dL [facility] GFR/1.73 sq M.predicted (S/P/Bld) [Vol rate/Area] 25 mL/min Low - PINF [facility] Comment on above: Calculation based on the Chronic Kidney Disease Epidemiology Collaboration (CKD-EPI) equation refit without adjustment for race Glucose [Mass/Vol] 122 mg/dL High 70 - 100 mg/dL [facility] Interpretation and review of laboratory results Abnormal [facility] Potassium [Moles/Vol] 4 mmol/L 3.5 - 5.1 mmol/L [facility] Sodium [Moles/Vol] 137 mmol/L 135 - 145 mmol/L [facility] Urea nitrogen [Mass/Vol] 42 mg/dL High 7 - 17 mg/dL [facility] CBC W Auto Differential pane l (Bld)on 05-29-2024 Basophils (Bld) [#/Vol] 0.1 10*3/uL 0.0 - 0.2 10*3/uL [facility] Basophils/100 WBC (Bld) 0.8 % 0.0 - 2.0 % [facility] Eosinophils (Bld) [#/Vol] 0.1 10*3/uL 0. 0 - 0.5 10*3/uL [facility] Eosinophils/100 WBC (Bld) 2.1 % 0.0 - 6.0 % [facility] Erythrocyte distribution width (RBC) [Ratio] 14.2 % 11.5 - 15.0 % [facility] Hematocrit (Bld) [Volume fraction] 31.2 % Low 35.0 - 47.0 % [facility] Hemoglobin (Bld) [Mass/Vol] 10.1 g/dL Low 11.7 - 16.0 g/dL [facility] Immature granulocytes (Bld) [#/Vol] 0 10*3/uL NINF - 0.1 10*3/uL [facility] Immature granulocytes/100 WBC (Bld) 0.5 % 0.0 - 2.0 % [facility] Interpretation and review of laboratory results Abnormal [facility] th IPF 6 [facility] Lymphocytes (Bld) [#/Vol] 1.4 10*3/uL 1. 0 - 4.3 10*3/uL [facility] Lymphocytes/100 WBC (Bld) 22.1 % 15 .0 - 45.0 % [facility] MCH (RBC) [Entitic mass] 31.7 pg 26. 0 - 34.0 pg [facility] MCHC (RBC) [Mass/Vol] 32.4 % 30.5 - 36.0 % [facility] MCV (RBC) [Entitic vol] 97.8 fL 77.0 - 99.0 fL [facility] Monocytes (Bld) [#/Vol] 1.2 10*3/uL High 0.0 - 0.9 10*3/uL [facility] Monocytes/100 WBC (Bld) 19.1 % High 5.0 - 13.0 % [facility] Neutrophils (Bld) [#/Vol] 3.5 10*3/uL 1. 8 - 7.5 10*3/uL [facility] Neutrophils/100 WBC (Bld) 55.4 % 38 .0 - 82.0 % [facility] Nucleated RBC/100 WBC (Bld) [Ratio] 0 % [facility] Platelet mean volume (Bld) [Entitic vol] 12 fL 9.0 - 12.7 fL [facility] Platelets (Bld) [#/Vol] 111 10*3/uL Low 140 - 440 10*3/uL [facility] RBC (Bld) [#/Vol] 3.19 10*6/uL Low 3.80 - 5.2 0 10*6/uL [facility] WBC (Bld) [#/Vol] 6.3 10*3/uL 3.6 - 10.7 10*3/uL [facility] CBC WITH AUTO DIFFERENTIALon 05-29-2024 Basophils (Bld) [#/Vol] 0.1 10*3/uL Normal 0.0-0.2 [facility] Comment on above: Performed By: #### L [id number] ####Attendant Campground: RUTH ANN BRAGG ([phone])[facility] ([facility])[address] Basophils/100 WBC (Bld) 0.8 % Normal 0.0-2.0 [facility] Comment on above: Performed By: #### L [id number] ####Attendant Campground: RUTH ANN BRAGG ([phone])[facility] ([facility])[address] [place] [address] [place] Eosinophils (Bld) [#/Vol] 0.1 10*3/uL Normal 0.0-0.5 [facility] Comment on above: Performed By: #### L [id number] ####Attendant Campground: RUTH ANN BRAGG ([phone])[facility] ([facility])[address] Eosinophils/100 WBC (Bld) 2.1 % Normal 0.0-6.0 [facility] Comment on above: Performed By: #### L [id number] ####Attendant Campground: RUTH ANN BRAGG ([phone])[facility] ([facility])[address] [place] [address] Erythrocyte distribution width (RBC) [Ratio] 14.2 % Normal 11.5-15.0 [facility] Comment on above: Performed By: #### L [id number] ####Attendant Campground: RUTH ANN BRAGG ([phone])[facility] ([facility])[address] [place] [address] Hematocrit (Bld) [Volume fraction] 31.2 % Low 35.0-47.0 [facility] Comment on above: Performed By: #### L [id number] ####Attendant Campground: RUTH ANN BRAGG ([phone])[facility] ([facility])[address] Hemoglobin (Bld) [Mass/Vol] 10.1 g/dL Low 11.7-16.0 [facility] Comment on above: Performed By: #### L [id number] ####Attendant Campground: RUTH ANN BRAGG ([phone])[facility] ([facility])[address] IMMATURE GRANS % 0.5 % Normal 0.0-2.0 [facility] Comment on above: Performed By: #### L [id number] ####Attendant Campground: RUTH ANN BRAGG ([phone])[facility] [place] [address] IMMATURE GRANS ABSOLUTE 0.0 10*3/uL Normal <0.1 [facility] Comment on above: Performed By: #### L [id number] ####Attendant Campground: RUTH ANN BRAGG ([phone])[facility] [place] [address] IPF 6 Normal [facility] Comment on above: Performed By: #### L [id number] ####Attendant Campground: RUTH ANN BRAGG ([phone])[facility] (SBHLAB)[address] [place] [address] Lymphocytes (Bld) [#/Vol] 1.4 10*3/uL Normal 1.0-4.3 [facility] Comment on above: Performed By: #### L [id number] ####Attendant Campground: RUTH ANN BRAGG ([phone])[facility] [place] [address] Lymphocytes/100 WBC (Bld) 22.1 % Normal 15.0-45.0 [facility] Comment on above: Performed By: #### L [id number] ####Attendant Campground: RUTH ANNMELANIE BRAGG ([phone])[facility] [place] (SBHLAB)[address] MCH (RBC) [Entitic mass] 31.7 pg Normal 26.0-34.0 [facility] Comment on above: Performed By: #### L [id number] ####Attendant Campground: RUTH ANN YEMI ([phone])[facility] ([facility])[address] MCHC 32.4 % Normal 30.5-36.0 [facility] Comment on above: Performed By: #### L [id number] ####Attendant Campground: RUTH ANN BRAGG ([phone])[facility] (SBHLAB)[address] MCV (RBC) [Entitic vol] 97.8 fL Normal 77.0-99.0 [facility] Comment on above: Performed By: #### L [id number] ####Attendant Campground: RUTH ANN OBREGONDavidSHELTON ([phone])[facility] (SBHLAB)[address] Monocytes (Bld) [#/Vol] 1.2 10*3/uL High 0.0-0.9 [facility] Comment on above: Performed By: #### L [id number] ####Attendant Campground: RUTH ANN HERRONSHELTON ([phone])[facility] [place] (SB[facility]AB)[address] Monocytes/100 WBC (Bld) 19.1 % High 5.0-13.0 [facility] Comment on above: Performed By: #### L [id number] ####Attendant Campground: RUTH ANN HERRONSHELTON ([phone])[facility] ([facility])[address] NEUTROPHILS ABSOLUTE 3.5 10*3/uL Normal 1.8-7.5 [facility] Comment on above: Performed By: #### L [id number] ####Attendant Campground: RUTH ANN OBREGONDavidSHELTON ([phone])[facility] ([facility])[address] Neutrophils/100 WBC (Bld) 55.4 % Normal 38.0-82.0 [facility] Comment on above: Performed By: #### L [id number] ####Attendant Campground: RUTH ANN OBREGONWILTON ([phone])[facility] ([facility])[address] NRBC 0.0 /100 WBCs Normal 0.0-2.0 [facility] Comment on above: Performed By: #### L [id number] ####Attendant Campground: RUTH ANN YEMI ([phone])[facility] (SB[facility])[address] Platelet mean volume (Bld) [Entitic vol] 12.0 fL Normal 9.0-12.7 [facility] Comment on above: Performed By: #### L [id number] ####Attendant Campground: RUTH ANN OBREGONWILTON ([phone])[facility] (SBHLAB)[address] Platelets (Bld) [#/Vol] 111 10*3/uL Low 140-440 [facility] Comment on above: Performed By: #### L [id number] ####Attendant Campground: RUTH ANN BRAGG ([phone])[facility] (SB[facility])[address] RBC (Bld) [#/Vol] 3.19 10*6/uL Low 3.80-5.20 [facility] Comment on above: Performed By: #### L [id number] ####Attendant Campground: RUTH ANN HERRONSHELTON ([phone])[facility] ([facility]AB)[address] WBC (Bld) [#/Vol] 6.3 10*3/uL Normal 3.6-10.7 [facility] Comment on above: Performed By: #### L [id number] ####Attendant Campground: RUTH ANN BRAGG ([phone])[facility] [place] (SBHLAB)[address] [place] [address] ED Provider Noteon ED Provider Note Normal [facility] Laboratory - Chemistry and C hemistry - challengeOrdered By: Sylvia Hall on 05-29-2024 Troponin I.cardiac [Mass/Vol] 0.149 ng/mL Critically high NINF - 0.034 ng/mL [facility] Laboratory - Chemistry and C hemistry - challengeon 05-29-2024 Glucose [Mass/Vol] 112 mg/dL High 70 - 100 mg/dL [facility] Magnesium [Mass/Vol] 1.9 mg/dL 1.6 - 2 .3 mg/dL [facility] Laboratory - Chemistry and C hemistry - challengeOrdered By: Jayashree Naranjo on 05-29-2024 Troponin I.cardiac [Mass/Vol] 0.124 ng/mL Critically high NINF - 0.034 ng/mL [facility] Laboratory - Microbiology an d Antimicrobial susceptibilityon 05-29-2024 FLUAV RNA HUGO+probe Ql (Resp) Not detected Not Detected [facility] FLUBV RNA HUGO+probe Ql (Resp) Not detected Not Detected [facility] RSV RNA HUGO+probe Ql (Resp) Not detected Not Detected [facility] SARS-CoV-2 (COVID-19) RNA HUGO+probe Ql (Resp) Not detected Not Detected [facility] SARS-CoV-2 (COVID-19) RNA HUGO+probe Ql (Unsp spec) Methodology: real-time, RT-PCR The SARS-CoV-2, Flu A/B, and RSV Combo assay is intended for in vitro diagnostic use under the FDA Emergency Use Authorization (EUA). This test has not been FDA cleared or approved. In compliance with this authorization, please visit www.fda.gov/media/ 2690/download or www.fda.gov/media/14 3825/download to access the applicable information sheets. [facility] MAGNESIUMon 05-29-2024 Magnesium [Mass/Vol] 1.9 mg/dL Normal 1.6-2.3 [facility] Comment on above: Performed By: #### L [id number], [id number], [id number], [id number] ####Attendant Campground: RUTH ANN BRAGG ([phone])[facility] [place] (SBAB)[address] [place] [address] Magnesium [Mass/Vol]on 05-29 Interpretation and review of laboratory results Normal [facility] NT PRO BNPon 05-29-2024 Natriuretic peptide B (Bld) [Mass/Vol] 3820 pg/mL High <20-300 [facility] Comment on above: Performed By: #### L [id number], [id number], [id number], [id number] ####Attendant Campground: RUTH ANN BRAGG ([phone])[facility] ([facility] [place] [address] [place] Natriuretic peptide B [Mass/ Vol]on 05-29-2024 Interpretation and review of laboratory results Abnormal [facility] Natriuretic peptide B (Bld) [Mass/Vol] 3820 pg/mL High <20 - 300 [facility] No Panel Informationon 05-29 Interpretation and review of laboratory results Abnormal [facility] Performed by: [facility], [address] [place] [address] CLIA ID: [id number] [facility] Progress Noteon 05-29-2024 Progress Note Normal [facility] SARS-COV-2, FLU A/B, AND RSV COMBOon 05-29-2024 SARS-CoV-2 (COVID-19) RNA HUGO+probe Ql (Unsp spec) Normal [facility] Comment on above: Performed By: #### L [id number] ####Attendant Campground: RUTH ANN BRAGG ([phone])[facility] ([facility] [place] [address] SARS-CoV-2, Flu A/B, and RSV Comboon 05-29-2024 Interpretation and review of laboratory results Normal [facility] TROPONIN Ion 05-29-2024 Troponin I.cardiac [Mass/Vol] 0.149 ng/mL Critically high <0.034 [facility] Comment on above: Result Comment: ORDE R COMMENTS:Patients with high levels of Biotin oral intake (ie >5 mg/day) may have falsely decreased Troponin levels. Performed By: #### L [id number] ####Attendant Campground: RUTH ANN BRAGG ([phone])[facility] ([facility] TROPONIN, WITH SERIAL REFLEX on 05-29-2024 Troponin I.cardiac [Mass/Vol] 0.124 ng/mL Critically high <0.034 [facility] Comment on above: Result Comment: OLIVIA Mazariegos COMMENTS:Patients with high levels of Biotin oral intake (ie >5 mg/day) may have falsely decreased Troponin levels. Performed By: #### L AB15, [id number], [id number], [id number] ####Attendant Campground: RUTH ANN HERRONSHELTON ([phone])[facility] ([facility] Troponin I.cardiac [Mass/Vol ]Ordered By: Sylvia Hall on 05-29-2024 Interpretation and review of laboratory results Abnormal [facility] Patients with high levels of Biotin oral intake (ie >5 mg/day) may have falsely decreased Troponin levels. [facility] Troponin I.cardiac [Mass/Vol ]Ordered By: Jayashree Naranjo on 05-29-2024 Interpretation and review of laboratory results Abnormal [facility] Patients with high levels of Biotin oral intake (ie >5 mg/day) may have falsely decreased Troponin levels. [facility] XR Chest Single viewon 05-29 Stable cardiomegaly. Chronic interstitial changes within the lungs. Mild superimposed pulmonary vascular congestion is suspected, which appears overall improved when compared to the study dated 01/30/2024. Report Dictated on Electronically Signed By: Shemar Teresa MD Electronically Signed Date/Time: 05/29/2024 7:24 PM EDT [facility] Patient Name: MIKEL WINSTON : 1945 Exam Date/Time: 05/29/2024 19:24 Procedure: XR CHEST [...] There are degenerative changes of the spine. [facility] Shemar Teresa MD - 05/29/2024 [facility] 1945 [id number] Exam Date/Time: 05/29/2024 19:24 Procedure: XR CHEST [...] Electronically Signed Date/Time: 05/29/2024 7:24 PM EDT [facility] Radiology Study observation (narrative) [facility] XR Chest Single viewOrdered By: Shemar Teresa on 05-29-2024 [facility] CNOVon 04-27-2024 CNOV Office Visit (FPDOYL) MIKEL WINSTON ([id number]) 1945 F Date Time Provider Department 04/27/24 4:15 PM KOMAL COHNDOBEAU During your visit today, we recorded the following information about you: Temperature Pulse Blood pressure Weight 98.1 degrees 61/minute 130/64 89.8 kg Height 1.626 m Komal Cohn DO 05/06/2024 5:10 PM Signed [facility] [place] DO Lalit [address] [place] [address] Date of Evaluation: 04/27/2024 Patient Name: Mikel [...] by the patient and a relative. No industrial roofer was used. Neck Pain Pertinent negatives include [...] 130/64 Pulse 61 Temp 98.1 Ht 5' 4" (1.63m) Wt 198 lb (89.8kg) SpO2 96% [...] moist. Pharynx: (more content not included)... Normal [facility] US RETROPERITONEALon US RETROPERITONEAL Normal [facility] US Retroperitoneumon 024 1. Unremarkable renal ultrasound without urolithiasis or hydroureteronephrosi s. 2. Limited visualization of the left kidney due to limited acoustic windows probably accounting for the lack of visualization of the small left lower renal pole cyst noted on the prior study. Report Dictated on Electronically Signed By: Robinson Patel MD Electronically Signed Date/Time: 04/27/2024 11:45 AM [facility] Patient Name: MIKEL WINST[facility] : 1945 [id number] Exam Date/Time: 04/25/2024 11:23 Procedure: US RETROPERITONEAL [...] collection is seen adjacent to the kidneys. [facility] Robinson Patel MD - 04/27/2024 Patient Name: MIKEL WINSTON : 1945 [facility] [id number] Exam Date/Time: 04/25/2024 11:23 Procedure: US RETROPERITONEAL [...] Electronically Signed Date/Time: 04/27/2024 11:45 AM EDT [employer] US RetroperitoneumOrdered By : Robinson Patel on 04-27-2024 [employer] Work Phone: No Panel InformationOrdered By: Judy Tejada on 04-25-2024 Ao mid PSV 152.5 cm/s [employer] Work Phone: L renal orig RI 0.81 [employer] [facility] Work Phone: Left kidney length 9.13 cm [facility] Work Phone: Left renal dist EDV 9.7 cm/s [facility] Work Phone: Left renal dist PSV 77.0 cm/s [facility] Work Phone: Left renal dist RAR 0.50 [facility] Work Phone: Left Renal Dist RI 0.87 [facility] Work Phone: Left renal mid EDV 11.4 cm/s [facility] Work Phone: Left renal mid PSV 83.8 cm/s [facility] Work Phone: Left renal mid RAR 0.55 [facility] Work Phone: Left Renal Mid RI 0.86 [facility] Work Phone: Left renal middle parenchyma EDV 2.7 cm/s [facility] Work Phone: Left renal middle parenchyma PSV 14.0 cm/s [facility] Work Phone: Left renal middle parenchyma RI 0.81 [facility] Work Phone: Left renal origin EDV 27.6 cm/s [facility] Work Phone: Left renal origin PSV 141.6 cm/s [facility] Work Phone: Left renal origin RAR 0.93 [facility] Work Phone: Left renal prox EDV 27.6 cm/s [facility] Work Phone: Left renal prox PSV 110.9 cm/s [facility] Work Phone: Left renal prox RAR 0.73 [facility] Work Phone: Left Renal Prox RI 0.75 [facility] Work Phone: Left Renal RAR 0.93 [facility] Work Phone: Left Segmental Renal Artery EDV 2.7 cm/s [facility] Work Phone: Left Segmental Renal Artery PSV 14.0 cm/s [facility] Work Phone: Left Segmental Renal Artery RI 0.81 [facility] Work Phone: Right Arcuate Renal Artery EDV 2.3 cm/s [facility] Work Phone: Right Arcuate Renal Artery PSV 10.7 cm/s [facility] Work Phone: Right Arcuate Renal Artery RI 0.79 [facility] Work Phone: Right kidney length 9.36 cm [facility] Work Phone: Right renal dist EDV 12.9 cm/s [facility] Work Phone: Right renal dist PSV 105.0 cm/s [facility] Work Phone: Right renal dist RAR 0.69 [facility] [employer] Work Phone: Right Renal Dist RI 0.88 [facility] [employer] Work Phone: Right renal mid EDV 10.1 cm/s [facility] [employer] Work Phone: Right renal mid PSV 122.0 cm/s [facility] Work Phone: Right renal mid RAR 0.80 [facility] Work Phone: Right Renal Mid RI 0.92 [facility] [employer] Work Phone: Right renal middle parenchyma EDV 3.5 cm/s [facility] [employer] Work Phone: Right renal middle parenchyma PSV 24.2 cm/s [facility] Work Phone: Right renal middle parenchyma RI 0.86 [facility] Work Phone: Right Renal RAR 0.80 [facility] Work Phone: Right Renal Segmental Accel Time 0.03 s [facility] Work Phone: Right Segmental Renal Artery EDV 3.5 cm/s [facility] [employer] Work Phone: Right Segmental Renal Artery PSV 24.2 cm/s [facility] Work Phone: Right Segmental Renal Artery RI 0.86 [employer] Phone: No Panel Informationon 04-25 Significantly limited [...] other means of evaluation if clinically indicated. Cardiac Rn Details A arteaga scale, color Doppler imaging [...] US Retroperitoneumon 024 Radiology Study observation (narrative) [facility] US renal artery dup fanny completeOrdered By: Judy Tejada on 04-25-2024 Left renal dist PSV 77 cm/s [employer] Phone: Left renal dist RAR 0.5 [employer] Phone: Left renal middle parenchyma PSV 14 cm/s [employer] Phone: Left Segmental Renal Artery PSV 14 cm/s [facility] Work Phone: Right renal dist PSV 105 cm/s [facility] Work Phone: Right renal mid PSV 122 cm/s [facility] Work Phone: Right renal mid RAR 0.8 [facility] Work Phone: Right Renal RAR 0.8 [facility] Work Phone: [phone] US Heart TransthoracicOrdere d By: Huy Frederick on 04-18-2024 Ao Root Index 1.39 cm/m2 [facility] Work Phone: [phone] Aortic Root 2.7 cm [facility] Work Phone: [phone] Aortic Sinus Valsalva 2.7 cm [facility] Work Phone: Aortic Sinus Valsalva Index 1.39 cm/m2 [facility] Work Phone: Ascending Aorta 3.6 cm [facility] Work Phone: Ascending Aorta Index 1.86 cm/m2 [facility] Work Phone: AV Area by Peak Velocity 1.3 cm2 [facility] Work Phone: [phone] AV Area by VTI 1.2 cm2 [facility] Work Phone: AV Mean Gradient 26 mmHg [facility] Work Phone: AV Mean Velocity 2.4 m/s [facility] Work Phone: AV Peak Gradient 43 mmHg [facility] Work Phone: AV Peak Velocity 3.3 m/s [facility] Work Phone: AV Velocity Ratio 0.27 [facility] Work Phone: AV VTI 86.3 cm [facility] Work Phone: VINH/BSA Peak Velocity 0.7 cm2/m2 [facility] Work Phone: VINH/BSA VTI 0.6 cm2/m2 [facility] Work Phone: E/E' Lateral 12.44 [facility] [employer] Work Phone: [phone] E/E' Ratio (Averaged) 14.22 [facility] [employer] Work Phone: [phone] E/E' Septal 16.00 [facility] Work Phone: [phone] EF BP 63 % 55 - 100 % [facility] [employer] Work Phone: [phone] Fractional Shortening 2D 32 % 28 - 44 % [facility] [employer] Work Phone: [phone] Interpretation and review of laboratory results Abnormal [facility] Work Phone: [phone] IVC Diameter 1.7 cm [facility] [employer] Work Phone: [phone] IVSd 0.8 cm 0.6 - 0.9 cm [facility] Work Phone: [phone] LA Diameter 4.7 cm [facility] [employer] Work Phone: [phone] LA Size Index 2.42 cm/m2 [facility] Work Phone: [phone] LA Volume 2C 68 mL Abnormal 22 - 52 mL [facility] [employer] Work Phone: [phone] LA Volume 4C 89 mL Abnormal 22 - 52 mL [facility] [employer] Work Phone: [phone] LA Volume A/L 89 mL [facility] Work Phone: LA Volume BP 83 mL Abnormal 22 - 52 mL [facility] [employer] Work Phone: LA Volume Index 2C 35 mL/m2 Abnormal 16 - 34 mL/m2 [facility] [employer] Work Phone: [phone] LA Volume Index 4C 46 mL/m2 Abnormal 16 - 34 mL/m2 [facility] [employer] Work Phone: LA Volume Index A/L 46 mL/m2 16 - 34 mL/m2 [facility] [employer] Work Phone: LA Volume Index BP 43 ml/m2 Abnormal 16 - 34 ml/m2 [facility] [employer] Work Phone: LA/AO Root Ratio 1.74 [facility] Work Phone: LV E' Lateral Velocity 9 cm/s [facility] [place] Work Phone: LV E' Septal Velocity 7 cm/s [facility] Work Phone: LV EDV A2C 114 mL [facility] Work Phone: LV EDV A4C 102 mL [facility] Work Phone: LV EDV BP 108 mL Abnormal 56 - 104 mL [facility] Work Phone: LV EDV Index A2C 59 mL/m2 [facility] Work Phone: LV EDV Index A4C 53 mL/m2 [facility] Work Phone: LV EDV Index BP 56 mL/m2 [facility] Work Phone: LV Ejection Fraction A2C 73 % [facility] Work Phone: LV Ejection Fraction A4C 52 % [facility] Work Phone: LV ESV A2C 31 mL [facility] Work Phone: LV ESV A4C 48 mL [facility] Work Phone: LV ESV BP 39 mL 19 - 49 mL [facility] Work Phone: LV ESV Index A2C 16 mL/m2 [facility] Work Phone: LV ESV Index A4C 25 mL/m2 [facility] Work Phone: LV ESV Index BP 20 mL/m2 [facility] Work Phone: LV Mass 2D 187.3 g Abnormal 67 - 162 g [facility] Work Phone: LV Mass 2D Index 96.5 g/m2 Abnormal 43 - 95 g/m2 [facility] Work Phone: LV RWT Ratio 0.42 [facility] Work Phone: LVIDd 5.3 cm 3.9 - 5.3 cm [facility] Work Phone: LVIDd Index 2.73 cm/m2 [facility] Work Phone: LVIDs 3.6 cm [facility] Work Phone: LVIDs Index 1.86 cm/m2 [facility] Work Phone: LVOT Area 4.9 cm2 [facility] Work Phone: [phone] LVOT Cardiac Output 7.3 liter/mi nut e [facility] Work Phone: [phone] LVOT Diameter 2.5 cm [facility] Work Phone: [phone] LVOT Mean Gradient 2 mmHg [facility] Work Phone: [phone] LVOT Peak Gradient 3 mmHg [facility] Work Phone: [phone] LVOT Peak Velocity 0.9 m/s [facility] Work Phone: [phone] LVOT Stroke Volume Index 54.6 mL/m2 [facility] Work Phone: [phone] LVOT SV 106.0 ml [facility] Work Phone: LVOT VTI 21.6 cm [facility] Work Phone: [phone] LVOT:AV VTI Index 0.25 [facility] Work Phone: [phone] LVPWd 1.1 cm Abnormal 0.6 - 0.9 cm [facility] Work Phone: [phone] MV A Velocity 0.81 m/s [facility] Work Phone: MV E Velocity 1.12 m/s [facility] Work Phone: MV E Wave Deceleration Time 215.5 ms [facility] [employer] Work Phone: [phone] MV E/A 1.38 [facility] Work Phone: [phone] Pulmonary Artery EDP 6 mmHg [facility] Work Phone: RA Area 4C 70.6 mL [facility] Work Phone: [phone] RA Area 4C 68.3 mL [facility] Work Phone: [phone] RV Basal Dimension 4.6 cm [facility] Work Phone: [phone] RV Free Wall Peak S' 7 cm/s [facility] Work Phone: RV Mid Dimension 3.5 cm [facility] Work Phone: TAPSE 1.4 cm Abnormal 1.7 cm [facility] Work Phone: TR Max Velocity 3.01 m/s Marya Carter [facility] Work Phone: TR Peak Gradient 36 mmHg [facility] Work Phone: [facility] Work Phone: [facility] Transthoracicon Left Ventricle: Left ventricle size is [...] mmHg. No contrast was given. CV CPACS CNOVon 03-16-2024 CNOV Office Visit (FPDOYL) MIKEL WINSTON ([id number]) 1945 F Date Time Provider Department 03/16/24 3:15 PM KOMAL COHN FPDOYL During your visit today, we recorded the following information about you: Pulse Blood pressure Weight Height 60/minute 120/52 88.9 kg 1.626 m Komal Cohn DO 03/20/2024 9:06 PM Signed [facility] [place] Komal Cohn DO [address] [place] [address] Date of Evaluation: 03/16/2024 Patient Name: Mikel [...] history is provided by the patient. No industrial roofer was used. Edema This is a new [...] TO ROSA (more content not included)... Normal [facility] 03-15-2024 [facility] Telephone (JULIENYL) MIKEL WINSTON ([id number]) 1945 F Date Time Provider Department 03/15/24 KOMAL COHN During your visit today, we recorded the following information about you: Sylvia Monroy 03/15/2024 11:19 AM Signed Pt's driver messenger, Fernanda Keith called to request a handicap [...] type, unspecified site [M19.90] Order(s):PARKING FOR HANDICAPPED [[id number]] Order #: [id number] Prescriptions as of 03/22/2024 - sulfamethoxazole-tri methoprim [...] Encounter Status:Closed by NANETTE NELSON on 03/22/24 [facility] CNOVcaro 02-27-2024 CNOV Office Visit (FPDOYL) MIKEL WINSTON ([id number]) 1945 F Date Time Provider Department 02/27/24 [...] Dates: 02/15/2024 - present Responsible Staff: Latonya Rosado, graphics intern date: 02/13/2024 (Program start) Date of initial contact: 02/15/2024 Initial contact Target status: Successful; Contact made within 2 business days post-discharge Summary Discharged from: [facility] Admit Date: 01/28/24 Admitted for: cellulitis of right lower extremity and acute cystitis without hematuria Provider Documentation Mikel Ryan Winston is a 78 year old female [...] 140/60 Pulse 63 Temp 97.5 Ht 5' 4" (1.63m) Wt 199 lb (90.3kg) SpO2 98% [...] Cmt: Sum (more content not included)... Normal [facility] Ricki 02-15-2024 TAB Telephone ([facility]) MIKEL WINSTON ([id number]) 1945 F Date Time Provider Department 02/15/24 KOMAL COHN [facility] During your visit today, we recorded the [...] [R60.0] 05/03/2022 Chronic kidney disease, stage 3b ([facility]) [N18.32] 12/01/2022 Acute deep vein thrombosis (DVT) of other speci*12/01/2022 Congestive heart failure, unspecified HF chroni*12/01/2022 Angina at rest ([facility]) [I20.89] 12/01/2022 Obesity, Class I, BMI 30-34.9 [E66.9] 12/01/2022 Systolic murmur [R01.1] 12/26/2022 Platelets decreased ([facility]) [D69.6] 12/26/2022 Depression [F32.A] 12/11/2023 Prescriptions ordered this encounter Disp Refills Start End SITAGLIPTIN PHOSPHATE 25 MG TABLET 30 t* 2 02/16/2024 Route: ORAL Sig: Take 1 tablet by mouth once daily. Encounter Status:Closed by KOMAL COHN on 02/16/24 [facility] CBC W Auto Differential pane l (Bld)on 02-02-2024 Basophils (Bld) [#/Vol] 0.1 10*3/uL 0.0 - 0.2 10*3/uL [facility] Basophils/100 WBC (Bld) 0.7 % 0.0 - 2.0 % [facility] Eosinophils (Bld) [#/Vol] 0.6 10*3/uL High 0. 0 - 0.5 10*3/uL [facility] Eosinophils/100 WBC (Bld) 6.7 % High 0.0 - 6.0 % [facility] Erythrocyte distribution width (RBC) [Ratio] 13.3 % 11.5 - 15.0 % [facility] Hematocrit (Bld) [Volume fraction] 35.7 % 35.0 - 47.0 % [facility] Hemoglobin (Bld) [Mass/Vol] 11.3 g/dL Low 11.7 - 16.0 g/dL [facility] Immature granulocytes (Bld) [#/Vol] 0.0 10*3/uL NINF - 0.1 10*3/uL [facility] Immature granulocytes/100 WBC (Bld) 0.4 % 0.0 - 2.0 % [facility] Interpretation and review of laboratory results Abnormal [facility] th Lymphocytes (Bld) [#/Vol] 1.3 10*3/uL 1. 0 - 4.3 10*3/uL [facility] Lymphocytes/100 WBC (Bld) 16.1 % 15 .0 - 45.0 % [facility] MCH (RBC) [Entitic mass] 31.6 pg 26. 0 - 34.0 pg [facility] MCHC (RBC) [Mass/Vol] 31.7 % 30.5 - 36.0 % [facility] MCV (RBC) [Entitic vol] 99.7 fL High 77.0 - 99.0 fL [facility] Monocytes (Bld) [#/Vol] 1.3 10*3/uL High 0.0 - 0.9 10*3/uL [facility] Monocytes/100 WBC (Bld) 15.1 % High 5.0 - 13.0 % [facility] Neutrophils (Bld) [#/Vol] 5.1 10*3/uL 1. 8 - 7.5 10*3/uL [facility] Neutrophils/100 WBC (Bld) 61.0 % 38 .0 - 82.0 % [facility] Nucleated RBC/100 WBC (Bld) [Ratio] 0.0 % [facility] Platelet mean volume (Bld) [Entitic vol] 11.8 fL 9.0 - 12.7 fL [facility] Platelets (Bld) [#/Vol] 146 10*3/uL 140 - 440 10*3/uL [facility] RBC (Bld) [#/Vol] 3.58 10*6/uL Low 3.80 - 5.2 0 10*6/uL [facility] WBC (Bld) [#/Vol] 8.3 10*3/uL 3.6 - 10.7 10*3/uL [facility] Comprehensive metabolic 1998 panelon 02-02-2024 Albumin [Mass/Vol] 3.4 g/dL Low 3.5 - 5.0 g/dL [facility] ALP [Catalytic activity/Vol] 105 U/L 38 - 126 U/L [facility] ALT [Catalytic activity/Vol] 26 U/L 0 - 34 U/L [facility] Anion gap [Moles/Vol] 10 mmol/L 3 - 13 mmol/L [facility] AST [Catalytic activity/Vol] 44 U/L 15 - 46 U/L [facility] Bilirubin [Mass/Vol] 1.0 mg/dL 0.2 - 1 .3 mg/dL [facility] Calcium [Mass/Vol] 8.8 mg/dL 8.4 - 10. 4 mg/dL [facility] Chloride [Moles/Vol] 102 mmol/L 98 - 10 7 mmol/L [facility] CO2 [Moles/Vol] 22 mmol/L 22 - 30 mmol/L [facility] Creatinine [Mass/Vol] 1.66 mg/dL High 0.52 - 1.04 mg/dL [facility] GFR/1.73 sq M.predicted MDRD (S/P/Bld) [Vol rate/Area] 31.5 mL/min/{1.73_m2} Low - PINF [facility] Comment on above: Calculation based on the Chronic Kidney Disease Epidemiology Collaboration (CKD-EPI) equation refit without adjustment for race Glucose [Mass/Vol] 120 mg/dL High 70 - 100 mg/dL [facility] Interpretation and review of laboratory results Abnormal [facility] th Potassium [Moles/Vol] 4.5 mmol/L 3.5 - 5.1 mmol/L [facility] Protein [Mass/Vol] 7.0 g/dL 6.3 - 8.2 g/dL [facility] Sodium [Moles/Vol] 134 mmol/L Low 135 - 145 mmol/L [facility] Urea nitrogen [Mass/Vol] 34 mg/dL High 7 - 17 mg/dL [facility] Laboratory - Chemistry and C hemistry - challengeon 02-02-2024 Glucose [Mass/Vol] 186 mg/dL High 70 - 100 mg/dL [facility] Glucose [Mass/Vol] 121 mg/dL High 70 - 100 mg/dL [facility] No Panel Informationon 02-01 Interpretation and review of laboratory results Abnormal [facility] th Performed by: [facility] [place] [facility], [address] [facility], [facility] [address] CLIA ID: [id number] [facility] Interpretation and review of laboratory results Abnormal [facility] th [facility]formed by: [facility], [address] [facility], [facility] [address] CLIA ID: [id number] [facility] Radiology Study observation (narrative) [facility] alth Radiology Study observation (narrative) [facility]th CBC W Auto Differential pane l (Bld)Ordered By: Jr Chase on 02-01-2024 Erythrocyte distribution width (RBC) [Ratio] 13.5 % 11.5 - 15.0 % [facility] Hematocrit (Bld) [Volume fraction] 30.2 % Low 35.0 - 47.0 % [facility] Hemoglobin (Bld) [Mass/Vol] 9.8 g/dL Low 11.7 - 16.0 g/dL [facility] MCH (RBC) [Entitic mass] 32.0 pg 26. 0 - 34.0 pg [facility] MCHC (RBC) [Mass/Vol] 32.5 % 30.5 - 36.0 % [facility] MCV (RBC) [Entitic vol] 98.7 fL 77.0 - 99.0 fL [facility] Platelet mean volume (Bld) [Entitic vol] 11.3 fL 9.0 - 12.7 fL [facility] Platelets (Bld) [#/Vol] 90 10*3/uL Low 140 - 440 10*3/uL [facility] RBC (Bld) [#/Vol] 3.06 10*6/uL Low 3.80 - 5.2 0 10*6/uL [facility] WBC (Bld) [#/Vol] 6.4 10*3/uL 3.6 - 10.7 10*3/uL [facility] Comprehensive metabolic 1998 panelon 02-01-2024 Albumin [Mass/Vol] 2.9 g/dL Low 3.5 - 5.0 g/dL [facility] ALP [Catalytic activity/Vol] 95 U/L 38 - 126 U/L [facility] ALT [Catalytic activity/Vol] 21 U/L 0 - 34 U/L [facility] Anion gap [Moles/Vol] 8 mmol/L 3 - 13 mmol/L [facility] AST [Catalytic activity/Vol] 36 U/L 15 - 46 U/L [facility] Bilirubin [Mass/Vol] 1.0 mg/dL 0.2 - 1 .3 mg/dL [facility] Calcium [Mass/Vol] 8.4 mg/dL 8.4 - 10. 4 mg/dL [facility] Chloride [Moles/Vol] 104 mmol/L 98 - 10 7 mmol/L [facility] CO2 [Moles/Vol] 22 mmol/L 22 - 30 mmol/L [facility] Creatinine [Mass/Vol] 1.69 mg/dL High 0.52 - 1.04 mg/dL [facility] GFR/1.73 sq M.predicted MDRD (S/P/Bld) [Vol rate/Area] 30.8 mL/min/{1.73_m2} Low - PINF [facility] Comment on above: Calculation based on the Chronic Kidney Disease Epidemiology Collaboration (CKD-EPI) equation refit without adjustment for race Glucose [Mass/Vol] 107 mg/dL High 70 - 100 mg/dL [facility] Interpretation and review of laboratory results Abnormal [facility] th Potassium [Moles/Vol] 3.8 mmol/L 3.5 - 5.1 mmol/L [facility] Protein [Mass/Vol] 6.0 g/dL Low 6.3 - 8.2 g/dL [facility] Sodium [Moles/Vol] 135 mmol/L 135 - 145 mmol/L [facility] Urea nitrogen [Mass/Vol] 34 mg/dL High 7 - 17 mg/dL [facility] Laboratory - Chemistry and C hemistry - challengeon 02-01-2024 Glucose [Mass/Vol] 183 mg/dL High 70 - 100 mg/dL [facility] Glucose [Mass/Vol] 175 mg/dL High 70 - 100 mg/dL [facility] Glucose [Mass/Vol] 149 mg/dL High 70 - 100 mg/dL [facility] Glucose [Mass/Vol] 114 mg/dL High 70 - 100 mg/dL [facility] Magnesium [Mass/Vol] 2.2 mg/dL 1.6 - 2 .3 mg/dL [facility] Laboratory - Hematology and Cell countson 02-01-2024 Basophils (Bld) [#/Vol] 0.1 10*3/uL 0.0 - 0.2 10*3/uL [facility] Basophils/100 WBC (Bld) 1 % 0 - 2 % [facility] Mckenney cells LM Ql (Bld) Slight Abnormal (none) [facility] Eosinophils (Bld) [#/Vol] 0.4 10*3/uL 0. 0 - 0.5 10*3/uL [facility] Eosinophils/100 WBC (Bld) 7 % High 0 - 6 % [facility] Lymphocytes (Bld) [#/Vol] 0.5 10*3/uL Low 1. 0 - 4.3 10*3/uL [facility] Lymphocytes/100 WBC (Bld) 8 % Low 15 - 45 % [facility] Monocytes (Bld) [#/Vol] 0.6 10*3/uL 0.0 - 0.9 10*3/uL [facility] Monocytes/100 WBC (Bld) 9 % 5 - 13 % [facility] Neutrophils (Bld) [#/Vol] 4.8 10*3/uL 1. 8 - 7.5 10*3/uL [facility] RBC morphology finding Nom (Bld) abnormal [facility] Segmented neutrophils/100 WBC (Bld) 75 % 38 - 82 % [facility] Magnesium [Mass/Vol]on 01-31 Interpretation and review of laboratory results Normal [facility] No Panel Informationon 01-31 Interpretation and review of laboratory results Abnormal [facility] Performed by: Marya Zheng, [address] [place] [address] CLIA ID: [id number] [facility] Interpretation and review of laboratory results Abnormal [facility] Performed by: Marya Zheng, [address] [facility] [address] CLIA ID: [id number] [facility] Interpretation and review of laboratory results Abnormal [facility] Performed by: [facility], [address] [facility] [address] CLIA ID: [id number] [facility] Interpretation and review of laboratory results Abnormal [facility] Performed by: [facility], [address] [facility] [address] CLIA ID: [id number] [facility] Atypical Lymphocytes Manual [facility] Bands Manual [facility] Basophils Manual 1 [facility]th Blasts Manual [facility] Eosin[facility] Manual 7 High 0 - 1 [facility] Lymphocytes Manual 8 [facility] Metamyelocytes Manual [facility] Monocytes Manual 9 [facility] alth Myelocytes Manual [facility] ealth Neutrophils Manual 75 [facility] Promyelocytes Manual [facility] Unclassified Cells, Manual [facility] Radiology Study observation (narrative) [facility] Radiology Study observation (narrative) [facility] Radiology Study observation (narrative) [facility] Radiology Study observation (narrative) [facility] No Panel InformationOrdered By: Jr Chase on 02-01-2024 Interpretation and review of laboratory results Abnormal [facility] Bacteria identified Cx Nom ( U)Ordered By: Farideh Aguilar on 01-31-2024 Interpretation and review of laboratory results Abnormal [facility] CBC W Auto Differential pane l (Bld)Ordered By: Kathya Dotson on 01-31-2024 Erythrocyte distribution width (RBC) [Ratio] 13.7 % 11.5 - 15.0 % [facility] Hematocrit (Bld) [Volume fraction] 28.7 % Low 35.0 - 47.0 % [facility] Hemoglobin (Bld) [Mass/Vol] 9.5 g/dL Low 11.7 - 16.0 g/dL [facility] Interpretation and review of laboratory results Abnormal [facility] IPF 4 [facility] MCH (RBC) [Entitic mass] 32.3 pg 26. 0 - 34.0 pg [facility] MCHC (RBC) [Mass/Vol] 33.1 % 30.5 - 36.0 % [facility] MCV (RBC) [Entitic vol] 97.6 fL 77.0 - 99.0 fL [facility] Platelet mean volume (Bld) [Entitic vol] 11.9 fL 9.0 - 12.7 fL [facility] Platelets (Bld) [#/Vol] 83 10*3/uL Low 140 - 440 10*3/uL [facility] RBC (Bld) [#/Vol] 2.94 10*6/uL Low 3.80 - 5.2 0 10*6/uL [facility] WBC (Bld) [#/Vol] 8.8 10*3/uL 3.6 - 10.7 10*3/uL [facility] Comprehensive metabolic 1998 panelon 01-31-2024 Albumin [Mass/Vol] 2.7 g/dL Low 3.5 - 5.0 g/dL [facility] ALP [Catalytic activity/Vol] 52 U/L 38 - 126 U/L [facility] ALT [Catalytic activity/Vol] 19 U/L 0 - 34 U/L [facility] Anion gap [Moles/Vol] 8 mmol/L 3 - 13 mmol/L [facility] AST [Catalytic activity/Vol] 32 U/L 15 - 46 U/L [facility] Bilirubin [Mass/Vol] 1.3 mg/dL 0.2 - 1 .3 mg/dL [facility] Calcium [Mass/Vol] 8.7 mg/dL 8.4 - 10. 4 mg/dL [facility] Chloride [Moles/Vol] 105 mmol/L 98 - 10 7 mmol/L [facility] CO2 [Moles/Vol] 23 mmol/L 22 - 30 mmol/L [facility] Creatinine [Mass/Vol] 1.62 mg/dL High 0.52 - 1.04 mg/dL [facility] GFR/1.73 sq M.predicted MDRD (S/P/Bld) [Vol rate/Area] 32.4 mL/min/{1.73_m2} Low - PINF [facility] Comment on above: Calculation based on the Chronic Kidney Disease Epidemiology Collaboration (CKD-EPI) equation refit without adjustment for race Glucose [Mass/Vol] 141 mg/dL High 70 - 100 mg/dL [facility] Interpretation and review of laboratory results Abnormal [facility] th Potassium [Moles/Vol] 3.2 mmol/L Low 3.5 - 5.1 mmol/L [facility] Protein [Mass/Vol] 5.8 g/dL Low 6.3 - 8.2 g/dL [facility] Sodium [Moles/Vol] 136 mmol/L 135 - 145 mmol/L [facility] Urea nitrogen [Mass/Vol] 26 mg/dL High 7 - 17 mg/dL [facility] Laboratory - Chemistry and C hemistry - challengeon 01-31-2024 Glucose [Mass/Vol] 216 mg/dL High 70 - 100 mg/dL [facility] Glucose [Mass/Vol] 155 mg/dL High 70 - 100 mg/dL [facility] Glucose [Mass/Vol] 203 mg/dL High 70 - 100 mg/dL [facility] Glucose [Mass/Vol] 148 mg/dL High 70 - 100 mg/dL [facility] Magnesium [Mass/Vol] 1.5 mg/dL Low 1.6 - 2 .3 mg/dL [facility] Laboratory - Hematology and Cell countson 01-31-2024 Basophils (Bld) [#/Vol] 0.1 10*3/uL 0.0 - 0.2 10*3/uL [facility] Basophils/100 WBC (Bld) 1 % 0 - 2 % [facility] Eosinophils (Bld) [#/Vol] 0.1 10*3/uL 0. 0 - 0.5 10*3/uL [facility] Eosinophils/100 WBC (Bld) 1 % 0 - 6 % [facility] Lymphocytes (Bld) [#/Vol] 0.5 10*3/uL Low 1. 0 - 4.3 10*3/uL [facility] Lymphocytes/100 WBC (Bld) 6 % Low 15 - 45 % [facility] Monocytes (Bld) [#/Vol] 0.9 10*3/uL 0.0 - 0.9 10*3/uL [facility] Monocytes/100 WBC (Bld) 10 % 5 - 13 % [facility] Neutrophils (Bld) [#/Vol] 7.2 10*3/uL 1. 8 - 7.5 10*3/uL [facility] RBC morphology finding Nom (Bld) Normal [facility] Segmented neutrophils/100 WBC (Bld) 82 % 38 - 82 % [facility] Laboratory - Microbiology an d Antimicrobial susceptibilityOrdered By: Farideh Aguilar on 01-31-2024 Bacteria identified Cx Nom (U) >100,000 CFU/mL Escherichia coli Abnormal [facility] Magnesium [Mass/Vol]on 01-30 Interpretation and review of laboratory results Abnormal [facility] No Panel Informationon 01-30 Interpretation and review of laboratory results Abnormal [facility]formed by: [facility], [address] [place] [address] CLIA ID: [id number] [facility] Interpretation and review of laboratory results Abnormal [facility] Performed by: [facility], [address] [place] [address], [facility] [address] CLIA ID: [id number] [facility] Interpretation and review of laboratory results Abnormal [facility] Performed by: [facility], [address] [place] [address], [facility] [address] CLIA ID: [id number] [facility] Interpretation and review of laboratory results Abnormal [facility] Performed by: [facility], [address] [place] [address], [facility] [address] CLIA ID: [id number] [facility] Atypical Lymphocytes Manual [facility] Bands Manual [facility] Basophils Manual 1 [facility] alth Blasts Manual [facility] h Eosinophils Manual 1 0 - 1 [facility] Interpretation and review of laboratory results Abnormal [facility] Lymphocytes Manual 6 [facility] Metamyelocytes Manual [facility] Monocytes Manual 10 [facility] alth Myelocytes Manual [facility] ealth Neutrophils Manual 84 [facility] Promyelocytes Manual [facility] Unclassified Cells, Manual [facility] Radiology Study observation (narrative) [facility] Radiology Study observation (narrative) [facility] (narrative) [facility] Radiology Study observation (narrative) [facility] CBC W Auto Differential pane l (Bld)Ordered By: Osiel White on 01-30-2024 Erythrocyte distribution width (RBC) [Ratio] 13.9 % 11.5 - 15.0 % [facility] Hematocrit (Bld) [Volume fraction] 31.6 % Low 35.0 - 47.0 % [facility] Hemoglobin (Bld) [Mass/Vol] 10.1 g/dL Low 11.7 - 16.0 g/dL [facility] Interpretation and review of laboratory results Abnormal [facility] IPF 4 [facility] MCH (RBC) [Entitic mass] 31.9 pg 26. 0 - 34.0 pg [facility] MCHC (RBC) [Mass/Vol] 32.0 % 30.5 - 36.0 % [facility] MCV (RBC) [Entitic vol] 99.7 fL High 77.0 - 99.0 fL [facility] Platelet mean volume (Bld) [Entitic vol] 11.8 fL 9.0 - 12.7 fL [facility] Platelets (Bld) [#/Vol] 81 10*3/uL Low 140 - 440 10*3/uL [facility] RBC (Bld) [#/Vol] 3.17 10*6/uL Low 3.80 - 5.2 0 10*6/uL [facility] WBC (Bld) [#/Vol] 6.2 10*3/uL 3.6 - 10.7 10*3/uL [facility] CRP [Mass/Vol]on 01-30-2024 Interpretation and review of laboratory results Abnormal [facility] Comprehensive metabolic 1998 panelon 01-30-2024 Albumin [Mass/Vol] 3.1 g/dL Low 3.5 - 5.0 g/dL [facility] ALP [Catalytic activity/Vol] 79 U/L 38 - 126 U/L [facility] ALT [Catalytic activity/Vol] 23 U/L 0 - 34 U/L [facility] Anion gap [Moles/Vol] 7 mmol/L 3 - 13 mmol/L [facility] AST [Catalytic activity/Vol] 40 U/L 15 - 46 U/L [facility] Bilirubin [Mass/Vol] 1.0 mg/dL 0.2 - 1 .3 mg/dL [facility] Calcium [Mass/Vol] 8.8 mg/dL 8.4 - 10. 4 mg/dL [facility] Chloride [Moles/Vol] 111 mmol/L High 98 - 10 7 mmol/L [facility] CO2 [Moles/Vol] 21 mmol/L Low 22 - 30 mmol/L [facility] Creatinine [Mass/Vol] 1.58 mg/dL High 0.52 - 1.04 mg/dL [facility] GFR/1.73 sq M.predicted MDRD (S/P/Bld) [Vol rate/Area] 33.4 mL/min/{1.73_m2} Low - PINF [facility] Comment on above: Calculation based on the Chronic Kidney Disease Epidemiology Collaboration (CKD-EPI) equation refit without adjustment for race Glucose [Mass/Vol] 148 mg/dL High 70 - 100 mg/dL [facility] Interpretation and review of laboratory results Abnormal [facility] Potassium [Moles/Vol] 3.7 mmol/L 3.5 - 5.1 mmol/L [facility] Protein [Mass/Vol] 6.4 g/dL 6.3 - 8.2 g/dL [facility] Sodium [Moles/Vol] 138 mmol/L 135 - 145 mmol/L [facility] Urea nitrogen [Mass/Vol] 30 mg/dL High 7 - 17 mg/dL [facility] Laboratory - Chemistry and C hemistry - challengeon 01-30-2024 Glucose [Mass/Vol] 180 mg/dL High 70 - 100 mg/dL [facility] Glucose [Mass/Vol] 185 mg/dL High 70 - 100 mg/dL [facility] Glucose [Mass/Vol] 179 mg/dL High 70 - 100 mg/dL [facility] Glucose [Mass/Vol] 169 mg/dL High 70 - 100 mg/dL [facility] Procalcitonin [Mass/Vol] 0.12 ng/mL High 0.0 0 - 0.09 ng/mL [facility] CRP [Mass/Vol] 18.3 mg/L High NINF - 10.0 mg/L [facility] No Panel Informationon 01-29 Interpretation and review of laboratory results Abnormal [facility]formed by: [facility], [address] [place] [id number] CLIA ID: [id number] [facility] Interpretation and review of laboratory results Abnormal [facility] th Performed by: [facility], [address] [facility] [address] CLIA ID: [id number] [facility] Interpretation and review of laboratory results Abnormal [facility] th Performed by: [facility], [address] [facility] [address] CLIA ID: [id number] [facility] No evidence of deep vein and superficial [...] Vein: Patent, compressible. Peroneal Vein: Patent, compressible. Cardiac Rn Details A arteaga scale, color Doppler imaging, [...] Interpretation and review of laboratory results Abnormal [facility] Performed by: Marya Peterson [facility], [address] [place] [address] CLIA ID: [id number] [facility] Radiology Study observation (narrative) [facility] alth Radiology Study observation (narrative) [facility]th Radiology Study observation (narrative) [facility]th Radiology Study observation (narrative) [facility] Procalcitonin [Mass/Vol]on 01-30-2024 Interpretation and review of laboratory results Abnormal [facility] PCT <0.50 = Low risk of severe sepsis and/or septic shock. PCT >2.00 = High risk of severe sepsis and/or septic shock. [facility] Retroperitoneumon 024 Unremarkable renal ultrasound. Report Dictated on Electronically Signed By: Kjcruz Serna DO Electronically Signed Date/Time: 01/30/2024 10:57 AM EDT [facility] Patient Name: MIKEL WINSTON : [...] the kidneys. The bladder is grossly unremarkable. [facility] Kj SernaDO - 01/30/2024 Patient Name: MIKEL WINSTON : [...] Electronically Signed Date/Time: 01/30/2024 10:57 AM EDT [facility] US RetroperitoneumOrdered By : Kj Serna on 01-30-2024 [facility] Work Phone: Urinalysis complete panel (U )on 01-30-2024 Bacteria LM.HPF (Urine sed) [#/Area] Few Abnormal Negative /HPF [facility] Bilirubin Ql (U) Negative Negative mg/dL [facility] Clarity (U) Turbid Abnormal Clear [facility] Color (U) Yellow Lt. Yellow [facility] Epithelial cells.squamous LM.HPF (Urine sed) [#/Area] 3-5 [facility] Glucose Ql (U) 200 mg/dL Abnormal Normal (<70) [facility] Hemoglobin Ql (U) >1.0 Abnormal Negative mg/dL [facility] Interpretation and review of laboratory results Abnormal [facility] Ketones (U) [Mass/Vol] Negative Negat balbina mg/dL [facility] Leukocyte esterase Test strip Ql (U) 75 Abnormal Negative Yomi/uL [facility] Mucus LM.HPF (Urine sed) [#/Area] Few Negative /LPF [facility] Nitrite Ql (U) Negative Negative [facility] pH (U) 5.5 [pH] 5.0 - 8.0 pH [facility] Protein (U) [Mass/Vol] 50 mg/dL Abnormal Negative [facility] RBC LM.HPF (Urine sed) [#/Area] 51-100 Abnormal [facility] Specific gravity (U) [Rel density] 1.015 1.005 - 1.030 [facility] Urobilinogen (U) [Mass/Vol] 2 mg/dL Abnormal Normal (0-1) [facility] WBC LM.HPF (Urine sed) [#/Area] 11-25 Abnormal [facility] XR Chest Single viewon 01-29 Cardiomegaly with interstitial edema. Possible consolidation at the base of the right upper lobe. Report Dictated on Electronically Signed By: Antwan Boyd MD Electronically Signed Date/Time: 01/30/2024 8:05 PM EDT [facility] Patient Name: MIKEL WINSTON : [...] mid hemithorax. The costophrenic angles are obscured. [facility] Antwan Boyd MD - 01/30/2024 [...] Electronically Signed Date/Time: 01/30/2024 8:05 PM EDT [facility] Radiology Study observation (narrative) [facility] Lines, tubes, and devices: [...] Electronically Signed Date/Time: 01/30/2024 8:29 AM EDT [facility] Name: [facility]INST[facility] 1945 [id number] Exam Date/Time: 01/30/2024 00:45 Procedure: XR CHEST 1 VIEW Ordering Provider: MORILLO DANIEL Reason For Exam: sob EXAMINATION: CHEST RADIOGRAPH (SINGLE VIEW AP OR PA) Clinical History: sob Comparison: Radiograph 11/17/2022 RESULT: See impression [facility] Blaise Winters MD - [...] Electronically Signed Date/Time: 01/30/2024 8:29 AM EDT [facility] Radiology Study observation (narrative) [facility] XR Chest Single viewOrdered By: Antwan Boyd on 01-30-2024 [facility] Work Phone: CBC W Auto Differential pane l (Bld)Ordered By: Ovidio Carson on 01-29-2024 Erythrocyte distribution width (RBC) [Ratio] 13.7 % 11.5 - 15.0 % [facility] Hematocrit (Bld) [Volume fraction] 32.5 % Low 35.0 - 47.0 % [facility] Hemoglobin (Bld) [Mass/Vol] 10.5 g/dL Low 11.7 - 16.0 g/dL [facility] Interpretation and review of laboratory results Abnormal [facility] th IPF 4 [facility] MCH (RBC) [Entitic mass] 31.7 pg 26. 0 - 34.0 pg [facility] MCHC (RBC) [Mass/Vol] 32.3 % 30.5 - 36.0 % [facility] MCV (RBC) [Entitic vol] 98.2 fL 77.0 - 99.0 fL [facility] Platelet mean volume (Bld) [Entitic vol] 11.6 fL 9.0 - 12.7 fL [facility] Platelets (Bld) [#/Vol] 89 10*3/uL Low 140 - 440 10*3/uL [facility] RBC (Bld) [#/Vol] 3.31 10*6/uL Low 3.80 - 5.2 0 10*6/uL [facility] WBC (Bld) [#/Vol] 9.0 10*3/uL 3.6 - 10.7 10*3/uL [facility] Comprehensive metabolic 1998 panelon 01-29-2024 Albumin [Mass/Vol] 3.4 g/dL Low 3.5 - 5.0 g/dL [facility] ALP [Catalytic activity/Vol] 73 U/L 38 - 126 U/L [facility] ALT [Catalytic activity/Vol] 22 U/L 0 - 34 U/L [facility] Anion gap [Moles/Vol] 9 mmol/L 3 - 13 mmol/L [facility] AST [Catalytic activity/Vol] 36 U/L 15 - 46 U/L [facility] Bilirubin [Mass/Vol] 1.2 mg/dL 0.2 - 1 .3 mg/dL [facility] Calcium [Mass/Vol] 9.6 mg/dL 8.4 - 10. 4 mg/dL [facility] Chloride [Moles/Vol] 109 mmol/L High 98 - 10 7 mmol/L [facility] CO2 [Moles/Vol] 22 mmol/L 22 - 30 mmol/L [facility] Creatinine [Mass/Vol] 1.68 mg/dL High 0.52 - 1.04 mg/dL [facility] GFR/1.73 sq M.predicted MDRD (S/P/Bld) [Vol rate/Area] 31.0 mL/min/{1.73_m2} Low - PINF [facility] Comment on above: Calculation based on the Chronic Kidney Disease Epidemiology Collaboration (CKD-EPI) equation refit without adjustment for race Glucose [Mass/Vol] 128 mg/dL High 70 - 100 mg/dL [facility] Interpretation and review of laboratory results Abnormal [facility] Potassium [Moles/Vol] 3.9 mmol/L 3.5 - 5.1 mmol/L [facility] Protein [Mass/Vol] 6.5 g/dL 6.3 - 8.2 g/dL [facility] Sodium [Moles/Vol] 140 mmol/L 135 - 145 mmol/L [facility] Urea nitrogen [Mass/Vol] 30 mg/dL High 7 - 17 mg/dL [facility] Laboratory - Chemistry and C hemistry - challengeon 01-29-2024 Glucose [Mass/Vol] 168 mg/dL High 70 - 100 mg/dL [facility] Glucose [Mass/Vol] 148 mg/dL High 70 - 100 mg/dL [facility] Sodium (24H U) [Mass/Vol] 77 mmol/L 30 - 90 mmol/L [facility] Chloride (U) [Moles/Vol] 61 mmol/L 19 - 209 mmol/L [facility] Glucose [Mass/Vol] 183 mg/dL High 70 - 100 mg/dL [facility] Glucose [Mass/Vol] 125 mg/dL High 70 - 100 mg/dL [facility] Laboratory - Drug toxicology on 01-29-2024 Vancomycin [Mass/Vol] 16.4 ug/mL 15.0 - 20.0 ug/mL [facility] Laboratory - Hematology and Cell countson 01-29-2024 Basophils (Bld) [#/Vol] 0.1 10*3/uL 0.0 - 0.2 10*3/uL [facility] Basophils/100 WBC (Bld) 1 % 0 - 2 % [facility] Eosinophils (Bld) [#/Vol] 0.1 10*3/uL 0. 0 - 0.5 10*3/uL [facility] Eosinophils/100 WBC (Bld) 1 % 0 - 6 % [facility] Lymphocytes (Bld) [#/Vol] 0.7 10*3/uL Low 1. 0 - 4.3 10*3/uL [facility] Lymphocytes/100 WBC (Bld) 8 % Low 15 - 45 % [facility] Monocytes (Bld) [#/Vol] 0.4 10*3/uL 0.0 - 0.9 10*3/uL [facility] Monocytes/100 WBC (Bld) 4 % Low 5 - 13 % [facility] Neutrophils (Bld) [#/Vol] 7.7 10*3/uL High 1. 8 - 7.5 10*3/uL [facility] RBC morphology finding Nom (Bld) Normal [facility] Segmented neutrophils/100 WBC (Bld) 86 % High 38 - 82 % [facility] Laboratory - Urinalysison Protein (U) [Mass/Vol] 32 mg/dL High 0 - 1 2 mg/dL [facility] Microalbumin/Creatinine rati o panel (U)on 01-29-2024 Albumin DL <= 20 mg/L (U) [Mass/Vol] 74.3 mg/L High 0.0 - 29.9 mg/L [facility] Albumin/Creatinine DL <= 20 mg/L (U) [Mass ratio] 159.1 mg/g High 0.0 - 29.9 mg/g [facility] CREATININE, URINE 46.7 mg/dL No Range [facility] Interpretation and review of laboratory results Abnormal [facility] Microalbumin concentrations <30 are considered normal, 30-300 are considered microalbuminuria (or risk of diabetic nephropathy), and >300 are considered clinical albuminuria (clinical nephropathy). Diabetes Care,27, Supplement 1, C58-96, 2004 [facility] No Panel Informationon 01-28 Interpretation and review of laboratory results Abnormal [facility] Performed by: Marya Zheng, [address] [place] [address] [place] [address] CLIA ID: [id number] [facility] Interpretation and review of laboratory results Abnormal [facility]formed by: [facility], [address] [facility] [address] CLIA ID: [id number] [facility] Interpretation and review of laboratory results Normal [facility] Interpretation and review of laboratory results Abnormal [facility] Interpretation and review of laboratory results Abnormal [facility] Performed by: [facility], [address] [facility] [address] CLIA ID: [id number] [facility] Interpretation and review of laboratory results Abnormal [facility] Performed by: [facility], [address] [facility] [address] CLIA ID: [id number] [facility] Atypical Lymphocytes Manual [facility] Bands Manual [facility] Basophils Manual 1 [facility] alth Blasts Manual [facility] Eosin[facility] Manual 1 0 - 1 [facility] Interpretation and review of laboratory results Abnormal [facility] Lymphocytes Manual 8 [facility] Metamyelocytes Manual [facility] Monocytes Manual 4 [facility] He alth Myelocytes Manual [facility] ealth Neutrophils Manual 86 [facility] Promyelocytes Manual [facility] Unclassified Cells, Manual [facility] Interpretation and review of laboratory results Normal [facility] Sinus rhythm Borderline prolonged MT interval 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 ST elevation secondary to IVCD Electronically Signed On 01-29-2024 05:57:24 EDT by Giancarlo Lau, - 01/29/2024 IMPRESSION: Sinus rhythm Borderline prolonged MT interval 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 ST elevation secondary to IVCD Electronically Signed On 01-29-2024 05:57:24 EDT by Giancarlo Queen [facility] Radiology Study observation (narrative) [facility] Radiology Study observation (narrative) [facility] Radiology Study observation (narrative) [facility] Radiology Study observation (narrative) [facility] No Panel InformationOrdered By: Giancarlo Queen on 01-29-2024 P [place] 66 degrees [facility] Work Phone: MT Interval 207 ms [facility] Work Phone: QRS [place] -65 degrees [employer] Work Phone: QRSD Interval 172 ms [facility] [employer] Work Phone: QT Interval 437 ms [facility] [employer] Work Phone: QTC Interval 540 ms [facility] [employer] Work Phone: T Wave [place] 98 degrees [employer] Work Phone: [employer] Work Phone: Vital signsOrdered By: Giovanny Queen on 01-29-2024 Heart rate 91 /min bpm [employer] Work Phone: Basic metabolic 1998 panelon 01-28-2024 Anion gap [Moles/Vol] 13 mmol/L 3 - 13 mmol/L [facility] [employer] Calcium [Mass/Vol] 10.2 mg/dL 8.4 - 10. 4 mg/dL [facility] [employer] Chloride [Moles/Vol] 107 mmol/L 98 - 10 7 mmol/L [facility] [employer] CO2 [Moles/Vol] 21 mmol/L Low 22 - 30 mmol/L [facility] [employer] Creatinine [Mass/Vol] 1.70 mg/dL High 0.52 - 1.04 mg/dL [employer] GFR/1.73 sq M.predicted MDRD (S/P/Bld) [Vol rate/Area] 30.6 mL/min/{1.73_m2} Low - PINF [facility] [employer] Comment on above: Calculation based on the Chronic Kidney Disease Epidemiology Collaboration (CKD-EPI) equation refit without adjustment for race Glucose [Mass/Vol] 122 mg/dL High 70 - 100 mg/dL [facility] [employer] Interpretation and review of laboratory results Abnormal [facility] Potassium [Moles/Vol] 4.3 mmol/L 3.5 - 5.1 mmol/L [employer] Sodium [Moles/Vol] 141 mmol/L 135 - 145 mmol/L [facility] [employer] Urea nitrogen [Mass/Vol] 33 mg/dL High 7 - 17 mg/dL [facility] [employer] [facility] [employer] CBC W Auto Differential pane l (Bld)on 01-28-2024 Basophils (Bld) [#/Vol] 0.0 10*3/uL 0.0 - 0.2 10*3/uL [facility] Basophils/100 WBC (Bld) 0.4 % 0.0 - 2.0 % [facility] Eosinophils (Bld) [#/Vol] 0.1 10*3/uL 0. 0 - 0.5 10*3/uL [facility] Eosinophils/100 WBC (Bld) 0.7 % 0.0 - 6.0 % [facility] Erythrocyte distribution width (RBC) [Ratio] 13.6 % 11.5 - 15.0 % [facility] Hematocrit (Bld) [Volume fraction] 35.1 % 35.0 - 47.0 % [facility] Hemoglobin (Bld) [Mass/Vol] 11.8 g/dL 11.7 - 16.0 g/dL [facility] Immature granulocytes (Bld) [#/Vol] 0.1 10*3/uL High NINF - 0.1 10*3/uL [facility] Immature granulocytes/100 WBC (Bld) 0.6 % 0.0 - 2.0 % [facility] Interpretation and review of laboratory results Abnormal [facility] th Lymphocytes (Bld) [#/Vol] 0.7 10*3/uL Low 1. 0 - 4.3 10*3/uL [facility] Lymphocytes/100 WBC (Bld) 6.3 % Low 15 .0 - 45.0 % [facility] MCH (RBC) [Entitic mass] 32.5 pg 26. 0 - 34.0 pg [facility] MCHC (RBC) [Mass/Vol] 33.6 % 30.5 - 36.0 % [facility] MCV (RBC) [Entitic vol] 96.7 fL 77.0 - 99.0 fL [facility] Monocytes (Bld) [#/Vol] 1.3 10*3/uL High 0.0 - 0.9 10*3/uL [facility] Monocytes/100 WBC (Bld) 12.1 % 5.0 - 13.0 % [facility] Neutrophils (Bld) [#/Vol] 8.6 10*3/uL High 1. 8 - 7.5 10*3/uL [facility] Neutrophils/100 WBC (Bld) 79.9 % 38 .0 - 82.0 % [facility] Nucleated RBC/100 WBC (Bld) [Ratio] 0.0 % [facility] Platelet mean volume (Bld) [Entitic vol] 12.2 fL 9.0 - 12.7 fL [facility] Platelets (Bld) [#/Vol] 105 10*3/uL Low 140 - 440 10*3/uL [facility] RBC (Bld) [#/Vol] 3.63 10*6/uL Low 3.80 - 5.2 0 10*6/uL [facility] WBC (Bld) [#/Vol] 10.8 10*3/uL High 3.6 - 10.7 10*3/uL [facility] CRP [Mass/Vol]on 01-28-2024 Interpretation and review of laboratory results Normal [facility] CT Head WO contraston [address] evidence of an acute intracranial abnormality. Chronic parenchymal changes as described. Report Dictated on Electronically Signed By: Blaise Winters MD Electronically Signed Date/Time: 01/28/2024 6:29 PM EDT [facility] [employer] [facility] Name: [facility]KEL WINST[facility] 1945 [id number] Exam Date/Time: 01/28/2024 18:00 Procedure: CT HEAD [...] orbits and extracranial soft tissues are unremarkable. [facility] [employer] Blaise Winters MD - 01/28/2024 Patient Name: MIKEL WINSTON : 1945 [id number] Exam Date/Time: 01/28/2024 18:00 Procedure: CT HEAD [...] Electronically Signed Date/Time: 01/28/2024 6:29 PM EDT [facility] Radiology Study observation (narrative) [facility] CT Head WO contrastOrdered B y: Blaise Winters on 01-28-2024 [facility] [employer] Work Phone: Free T4 [Mass/Vol]on 024 Free T4 Dialysis [Mass/Vol] 1.51 ng/dL 0.78 - 2.19 ng/dL [facility] [employer] Laboratory - Chemistry and C hemistry - challengeon 01-28-2024 Troponin I.cardiac [Mass/Vol] 0.018 ng/mL NINF - 0.034 ng/mL [facility] [employer] Lactate [Moles/Vol] 1.4 mmol/L 0.7 - 2. 0 mmol/L [facility] [employer] Glucose [Mass/Vol] 135 mg/dL High 70 - 100 mg/dL [facility] [employer] Average glucose Estimated from glycated hemoglobin (Bld) [Mass/Vol] 128 mg/dL [facility] CRP [Mass/Vol] mg/L NINF - 10.0 mg/L [facility] TSH Qn 1.503 m[IU]/L [facility] h Free T3 [Mass/Vol] 3.08 pg/mL 2.77 - 5. 27 pg/mL [facility] Troponin I.cardiac [Mass/Vol] 0.015 ng/mL NINF - 0.034 ng/mL [facility] Laboratory - Hematology and Cell countson 01-28-2024 HbA1c (Bld) [Mass fraction] 6.1 % High NINF - 5.7 % [facility] Comment on above: Normal less than 5.7 % Prediabetes 5.7% to 6.4% Diabetes 6.5% or higher --HgbA1C levels may not be accurate in patients who have renal disease, received recent blood transfusions, are anemic, or who have dyshemoglobinemia. Natriuretic peptide B [Mass/ Vol]on 01-28-2024 Interpretation and review of laboratory results Abnormal [facility] Natriuretic peptide B (Bld) [Mass/Vol] 1480 pg/mL High <20 - 300 [facility] No Panel Informationon 01-27 Interpretation and review of laboratory results Normal [facility] Interpretation and review of laboratory results Abnormal [facility]formed by: [facility], [address] [place] [address] CLIA ID: [id number] [facility] Interpretation and review of laboratory results Abnormal [facility] Interpretation and review of laboratory results Normal [facility] Radiology Study observation (narrative) [facility] alth TSH Qnon 01-28-2024 Interpretation and review of laboratory results Normal [facility] Troponin I.cardiac [Mass/Vol ]on 01-28-2024 Interpretation and review of laboratory results Normal [facility] Patients with high levels of Biotin oral intake (ie >5 mg/day) may have falsely decreased Troponin levels. [facility] Interpretation and review of laboratory results Normal [facility] Patients with high levels of Biotin oral intake (ie >5 mg/day) may have falsely decreased Troponin levels. [facility] Urinalysis complete panel (U )Ordered By: Víctor Loza on 01-28-2024 Bacteria LM.HPF (Urine sed) [#/Area] Many Abnormal Negative /HPF [facility] Bilirubin Ql (U) Negative Negative mg/dL [facility] Clarity (U) Turbid Abnormal Clear [facility] Color (U) Yellow Lt. Yellow [facility] Epithelial cells.squamous LM.HPF (Urine sed) [#/Area] 3-5 [facility] Glucose Ql (U) Normal Normal (<70) mg/dL [facility] Hemoglobin Ql (U) 0.06 mg/dL Abnormal Negative [facility] Interpretation and review of laboratory results Abnormal [facility] th Ketones (U) [Mass/Vol] Negative Negat balbina mg/dL [facility] Leukocyte clumps LM.HPF (Urine sed) [#/Area] Rare Abnormal Negative /HPF [facility] Leukocyte esterase Test strip Ql (U) 250 Abnormal Negative Yomi/uL [facility] Mucus LM.HPF (Urine sed) [#/Area] Few Negative /LPF [facility] Nitrite Ql (U) Negative Negative [facility] th pH (U) 6.0 [pH] 5.0 - 8.0 pH [facility] Protein (U) [Mass/Vol] 50 mg/dL Abnormal Negative [facility] RBC LM.HPF (Urine sed) [#/Area] 3-5 Abnormal [facility] Specific gravity (U) [Rel density] 1.015 1.005 - 1.030 [facility] Urobilinogen (U) [Mass/Vol] 2 mg/dL Abnormal Normal (0-1) [facility] WBC LM.HPF (Urine sed) [#/Area] 26-50 Abnormal [facility] US Retroperitoneumon 01-25-2 024 Radiology Study observation (narrative) [facility] Ralph hank CNOVon 01-06-2024 CNOV Office Visit (FPDOYL) MIKEL WINSTON ([id number]) 1945 F Date Time Provider Department 01/06/24 1:00 PM KOMAL COHN FPDOYL During your visit today, we recorded the following information about you: Temperature Pulse Blood pressure Weight 98 degrees 61/minute 134/70 93.4 kg Height 1.626 m Melanie Ellsworth 05/29/2024 4:07 PM Addendum [facility] Medicine [place] Lalit, DO [address] [place] [address] Date of Evaluation: 01/06/2024 Patient Name: Mikel [...] history is provided by the patient. No industrial roofer was used. Diabetes She presents for her [...] daily for 7 (more content not included)... Normal [facility] Ricki 01-06-2024 JATIN Telephone (JULIENYL) MIKEL WINSTON ([id number]) 1945 F Date Time Provider Department 01/06/24 KOMAL COHN During your visit today, we recorded the following information about you: Sylvia Monroy 01/06/2024 2:51 PM Signed Consult to nephrology CKD chronic kidney disease stage 4 GFR 15-29 ml/min Confirm [id number] Sylvia Monroy Allergies As of Date: 01/06/2024 Noted Allergy Reaction CODEINE 02/24/2016 4 - Hives 2 - Rash CODEINE SULFATE 06/13/2018 16 - Unknown Date Reviewed: 01/06/2024 Reviewed by: Arnel Govea LPN - Fully Assessed Reason for Visit: Consult [502] Cmt: Consult to nephrology, ckd chronic kidney disease state 4 gfr 15-29 confirm [id number] Prescriptions as of 01/06/2024 - atenolol (TENORMIN) [...] Encounter Status:Closed by SYLVIA MONROY on 01/06/24 [facility] CNPN Telephone (FPDOYL) MIKEL WINSTON ([id number]) 1945 F Date Time Provider Department 01/06/24 KOMAL COHN FPDOYL During your visit today, we recorded the following information about you: Sylvia Monroy 01/06/2024 2:50 PM Signed Consult to ophthalmology Screening for diabetic retinopathy Confirm [id number] Sylvia Monroy Allergies As of Date: 01/06/2024 Noted Allergy Reaction CODEINE 02/24/2016 4 - Hives 2 - Rash CODEINE SULFATE 06/13/2018 16 - Unknown Date Reviewed: 01/06/2024 Reviewed by: Arnel Govea LPN - Fully Assessed Reason for Visit: Consult [502] Cmt: Consult to ophthalmology, screening for diabetic retinopathy confirm [id number] Prescriptions as of 01/06/2024 - atenolol (TENORMIN) [...] Status:Closed by SYLVIA MONROY on 01/06/24 Normal [facility] HEMOGLOBIN A1C (POC)on 01-05 HbA1c (Bld) [Mass fraction] 6.5 % Abnormal 4.3 - 5.6 % [facility] Comment on above: Location:[facility], [address] [place] [address], [facility] Point of care (POC) Hemoglobin A1c (HGBA1C) [...] specific diabetes management situations: The POC device critical care cns provides a normal range of 4.2% to 6.5% for the HGBA1C POC test. 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 No order [...] failure, unspecified HF chroni*12/01/2022 Angina at rest ([facility]) [I20.89] 12/01/2022 Obesity, Class I, BMI 30-34.9 [E66.9] 12/01/2022 Systolic murmur [R01.1] 12/26/2022 Platelets decreased ([facility]) [D69.6] 12/26/2022 Depression [F32.A] 12/11/2023 Encounter Status:Closed by ARNEL GOVEA on 01/04/24 [facility] CNOVon 12-07-2023 CN Office Visit (FPDOYL) MIKEL WINSTON ([id number]) 1945 F Date Time Provider Department 12/07/23 10:30 AM KOMAL COHN FPDOYL During your visit today, we recorded the following information about you: Temperature Pulse Blood pressure Weight 98.2 degrees 80/minute 118/60 94.8 kg Height 1.626 m Komal Cohn DO 12/11/2023 10:53 PM Signed [facility] Medicine Brandi Cohn DO [address] [place] [address] Date of Evaluation: 12/07/2023 Patient Name: Mikel Ryan Ravindra : 1945 Chief Complaint: Patient presents with: Urinary Frequency: Burning with urination Confusion Leg Edema: Right lower leg, redness, blisters Nursing Intake: There are no exam notes on file for this visit. Subjective Ms. Winston is a 78 year old female who presents with the following complaint(s): The history is provided by the patient. No industrial roofer was used. UTI This is a new [...] citalopram (CELEX (more content not included)... Normal [facility] UA DIP, URINE (POC)on 2023 BILIRUBIN UA (POCT) Negative Negative [facility] CLARITY UA (POCT) Slightly Cloudy Cl [facility] COLOR UA (POCT) Stephanie [facility] GLUCOSE UA (POCT) Negative Negative mg/dL [facility] Hemoglobin Ql (U) Small Abnormal Negative [facility] Interpretation and review of laboratory results Abnormal [facility] KETONE UA (POCT) Negative Negative mg/dL [facility] LEUKOCYTES UA (POCT) Small Abnormal Negative [facility] NITRITE UA (POCT) Positive Abnormal Negative [facility] PH UA (POCT) 5.5 4.5 - 8.0 [facility] Protein Ql (U) 100 mg/dL Abnormal Negative [facility] SPECIFIC GRAVITY UA (POCT) >=1.030 1.005 - 1.030 [facility] UROBILINOGEN UA (POCT) 1.0 Lillian l E.U./dL [facility] Location:[facility], [address] [place] [address], [address] [place] [address] [facility] URINE CULTUREon 07-01-2023 Bacteria identified Cx Nom (U) >=100,000 CFU/ml Proteus mirabilis Abnormal [facility] HEMOGLOBIN A1C (POC)on 06-27 HbA1c (Bld) [Mass fraction] 7.2 % Abnormal 4.2 - 5.6 % [facility] UA DIP, URINE (POC)on 2022 BILIRUBIN UA (POCT) Negative Negative [facility] CLARITY UA (POCT) Clear [facility] COLOR UA (POCT) Yellow [facility] GLUCOSE UA (POCT) Negative Negative mg/dL [facility] Hemoglobin Ql (U) Trace-intact Abnormal Negative [facility] KETONE UA (POCT) Negative Negative mg/dL [facility] LEUKOCYTES UA (POCT) Large Abnormal Negative [facility] NITRITE UA (POCT) Negative Negative [facility] PH UA (POCT) 6.0 4.5 - 8.0 [facility] Protein Ql (U) Trace Abnormal Negative mg/dL [facility] SPECIFIC GRAVITY UA (POCT) 1.020 1.005 - 1.030 [facility] UROBILINOGEN UA (POCT) 0.2 E.U./dL Lillian l E.U./dL [facility] URINE CULTUREon 06-27-2023 Bacteria identified Cx Nom (U) Invalid Interpretation Code [facility] No Panel Informationon 03-07 No evidence [...] compressibility. Doppler flow was phasic and spontaneous. Cardiac Rn Details A arteaga scale, color Doppler imaging and spectral Doppler analysis ultrasound was performed. During the study longitudinal and transverse views were obtained. Pulsed wave doppler was performed. The exam was performed with the patient in the supine position. Overall the study quality was good. CV CPACS UA DIP, URINE (POC)on 2022 BILIRUBIN UA (POCT) Negative Negative [facility] CLARITY UA (POCT) Clear [facility] COLOR UA (POCT) Yellow [facility] GLUCOSE UA (POCT) Negative Negative mg/dL [facility] HEMOGLOBIN/BLOOD UA (POCT) Trace-lysed Abnormal Negative [facility] KETONE UA (POCT) Negative Negative mg/dL [facility] LEUKOCYTES UA (POCT) Negative Negative [facility] NITRITE UA (POCT) Negative Negative [facility] PH UA (POCT) 5.5 4.5 - 8.0 [facility] Protein Ql (U) Negative Negative mg/dL [facility] SPECIFIC GRAVITY UA (POCT) <=1.005 Abnormal 1.005 - 1.030 [facility] UROBILINOGEN UA (POCT) 1.0 E.U./dL Lillian l E.U./dL [facility] US Heart TransthoracicOrdere d By: Huy Frederick on 12-08-2022 Ascending Aorta 2.8 cm [facility] Work Phone: [phone] Ascending Aorta Index 1.44 cm/m2 [facility] Work Phone: [phone] AV Area by Peak Velocity 1.1 cm2 [facility] Work Phone: [phone] AV Area by VTI 1.1 cm2 [facility] Work Phone: [phone] AV Mean Gradient 21 mmHg [facility] Work Phone: [phone] AV Mean Velocity 2.2 m/s [facility] Work Phone: AV Peak Gradient 34 mmHg [facility] Work Phone: AV Peak Velocity 2.9 m/s [facility] Work Phone: [phone] AV Velocity Ratio 0.28 [facility] Work Phone: [phone] AV VTI 77.5 cm [facility] Work Phone: [phone] VINH/BSA Peak Velocity 0.6 cm2/m2 [facility] Work Phone: [phone] VINH/BSA VTI 0.6 cm2/m2 [facility] Work Phone: [phone] EF Physician 45 % [facility] Work Phone: [phone] Fractional Shortening 2D 25 % 28 - 44 % [facility] Work Phone: Interpretation and review of laboratory results Abnormal [facility] Work Phone: IVSd 1.1 cm Abnormal 0.6 - 0.9 cm [facility] Work Phone: [phone] LA Diameter 4.6 cm [facility] Work Phone: [phone] LA Size Index 2.37 cm/m2 [facility] Work Phone: LA Volume 4C 88 mL Abnormal 22 - 52 mL [facility] Work Phone: LA Volume Index 4C 45 mL/m2 Abnormal 16 - 34 mL/m2 [facility] Work Phone: LV EDV A2C 140 mL [facility] Work Phone: LV EDV A4C 157 mL [facility] Work Phone: [phone] LV EDV BP 152 mL Abnormal 56 - 104 mL [facility] Work Phone: LV EDV Index A2C 72 mL/m2 [facility] Work Phone: LV EDV Index A4C 81 mL/m2 [facility] Work Phone: [phone] LV EDV Index BP 78 mL/m2 [facility] Work Phone: LV ESV A2C 62 mL [facility] Work Phone: [phone] LV ESV A4C 69 mL [facility] Work Phone: [phone] LV ESV BP 70 mL Abnormal 19 - 49 mL [facility] Work Phone: [phone] LV ESV Index A2C 32 mL/m2 [facility] Work Phone: [phone] LV ESV Index A4C 36 mL/m2 [facility] Work Phone: [phone] LV ESV Index BP 36 mL/m2 [facility] Work Phone: [phone] LV Mass 2D 203.0 g Abnormal 67 - 162 g [facility] Work Phone: [phone] LV Mass 2D Index 104.7 g/m2 Abnormal 43 - 95 g/m2 [facility] Work Phone: [phone] LV RWT Ratio 0.64 [facility] [employer] Work Phone: [phone] LVIDd 4.4 cm 3.9 - 5.3 cm [facility] [employer] Work Phone: [phone] LVIDd Index 2.27 cm/m2 [facility] [employer] Work Phone: [phone] LVIDs 3.3 cm [facility] Work Phone: [phone] LVIDs Index 1.70 cm/m2 [facility] [employer] Work Phone: [phone] LVOT Area 4.2 cm2 [facility] [employer] Work Phone: [phone] LVOT Cardiac Output 5.0 liter/mi nut e [facility] [employer] Work Phone: [phone] LVOT Diameter 2.3 cm [facility] h Work Phone: [phone] LVOT Mean Gradient 1 mmHg [facility] [employer] Work Phone: [phone] LVOT Peak Gradient 3 mmHg [facility] Work Phone: [phone] LVOT Peak Velocity 0.8 m/s [facility] [employer] Work Phone: [phone] LVOT Stroke Volume Index 43.9 mL/m2 [facility] [employer] Work Phone: [phone] LVOT SV 85.1 ml [facility] [employer] Work Phone: [phone] LVOT VTI 20.5 cm [facility] [employer] Work Phone: LVOT:AV VTI Index 0.26 [facility] Work Phone: [phone] LVPWd 1.4 cm Abnormal 0.6 - 0.9 cm [facility] [employer] Work Phone: [phone] MV A Velocity 0.72 m/s [facility] [employer] Work Phone: [phone] MV E Velocity 0.97 m/s [facility] [employer] Work Phone: [phone] MV E Wave Deceleration Time 206.7 ms [facility] [employer] Work Phone: [phone] MV E/A 1.35 [facility] [employer] Work Phone: [phone] RV Free Wall Peak S' 7 cm/s [facility] [employer] Work Phone: [phone] TAPSE 1.5 cm Abnormal 1.7 cm [facility] [employer] Work Phone: [phone] [facility] [employer] Work Phone: [phone] Heart Transthoracicon Left Ventricle: Left ventricle [...] [Ratio] 13.7 % 11.5 - 14.5 % [facility] [employer] Hematocrit (Bld) [Volume fraction] 28.4 % Low 35.0 - 47.0 % [facility] Hemoglobin (Bld) [Mass/Vol] 9.3 g/dL Low 11.7 - 16.0 g/dL [facility] [employer] MCH (RBC) [Entitic mass] 31.2 pg 26. 0 - 34.0 pg [facility] MCHC (RBC) [Mass/Vol] 32.9 % 32.0 - 36.0 % [facility] MCV (RBC) [Entitic vol] 95.0 fL 80.0 - 98.0 fL [facility] [employer] Nucleated RBC/100 WBC (Bld) [Ratio] 0.0 % [facility] Platelet mean volume (Bld) [Entitic vol] 9.8 fL 7.4 - 12.4 fL [facility] [employer] Platelets (Bld) [#/Vol] 79 10*3/uL Low 140 - 440 10*3/uL [facility] [employer] RBC (Bld) [#/Vol] 2.99 10*6/uL Low 3.8 - 5.20 10*6/uL [facility] WBC (Bld) [#/Vol] 3.5 10*3/uL Low 3.6 - 10.7 10*3/uL [facility] Comprehensive metabolic 1998 panelon 11-19-2022 Albumin [Mass/Vol] 2.7 g/dL Low 3.5 - 5.0 g/dL [facility] [employer] ALP [Catalytic activity/Vol] 121 U/L 38 - 126 U/L [facility] [employer] ALT [Catalytic activity/Vol] 21 U/L 0 - 34 U/L [facility] Anion gap [Moles/Vol] 3 mmol/L 3 - 13 mmol/L [facility] AST [Catalytic activity/Vol] 39 U/L 15 - 46 U/L [facility] Bilirubin [Mass/Vol] 0.8 mg/dL 0.2 - 1 .3 mg/dL [facility] Calcium [Mass/Vol] 8.3 mg/dL Low 8.4 - 10. 4 mg/dL [facility] Chloride [Moles/Vol] 111 mmol/L High 98 - 10 7 mmol/L [facility] CO2 [Moles/Vol] 21 mmol/L Low 22 - 30 mmol/L [facility] Creatinine [Mass/Vol] 1.31 mg/dL High 0.52 - 1.04 mg/dL [facility] GFR/1.73 sq M.predicted MDRD (S/P/Bld) [Vol rate/Area] 42.1 mL/min/{1.73_m2} Low - PINF [facility] Comment on above: Calculation based on the Chronic Kidney Disease Epidemiology Collaboration (CKD-EPI) equation refit without adjustment for race Glucose [Mass/Vol] 159 mg/dL High 70 - 100 mg/dL [facility] Interpretation and review of laboratory results Abnormal [facility] Potassium [Moles/Vol] 3.7 mmol/L 3.5 - 5.1 mmol/L [facility] Protein [Mass/Vol] 5.3 g/dL Low 6.3 - 8.2 g/dL [facility] Sodium [Moles/Vol] 135 mmol/L 135 - 145 mmol/L [facility] Urea nitrogen [Mass/Vol] 30 mg/dL High 7 - 17 mg/dL [facility] Laboratory - Chemistry and C hemistry - challengeon 11-19-2022 Glucose [Mass/Vol] 176 mg/dL High 70 - 100 mg/dL [facility] Glucose [Mass/Vol] 117 mg/dL High 70 - 100 mg/dL [facility] Manual differential performe d Ql (Bld)on 11-19-2022 Anisocytosis Ql (Bld) Slight Abnormal (none) [facility] Basophils (Bld) [#/Vol] 0.0 10*3/uL 0.0 - 0.2 10*3/uL [facility] Basophils Manual 1 [facility] alth Basophils/100 WBC (Bld) 1 % 0 - 2 % [facility] Cells Counted Total (Bld) [#] 100 {cells} [facility] Dacrocytes LM Ql (Bld) Rare Abnormal (none) [facility] Eosinophils (Bld) [#/Vol] 0.2 10*3/uL 0. 0 - 0.5 10*3/uL [facility] Eosinophils Manual 5 High 0 - 1 [facility] Eosinophils/100 WBC (Bld) 5 % 1 - 6 % [facility] Leukocyte morphology finding Nom (Bld) Normal [facility] Lymphocytes (Bld) [#/Vol] 0.8 10*3/uL Low 1. 0 - 4.3 10*3/uL [facility] Lymphocytes Manual 22 [facility] Lymphocytes/100 WBC (Bld) 22 % 20 - 40 % [facility] Monocytes (Bld) [#/Vol] 0.5 10*3/uL 0.0 - 0.8 10*3/uL [facility] Monocytes Manual 13 [facility] alth Monocytes/100 WBC (Bld) 13 % High 2 - 10 % [facility] Neutrophils (Bld) [#/Vol] 2.1 10*3/uL 1. 8 - 7.0 10*3/uL [facility] Neutrophils Manual 59 [facility] Ovalocytes LM Ql (Bld) Slight Abnormal (none) [facility] Platelet morphology finding Nom (Bld) Normal [facility] Segmented neutrophils/100 WBC (Bld) 59 % 40 - 80 % [facility] WBC corrected for nucl RBC (Bld) [#/Vol] 3.50 10*3/uL Low 3.60 - 10.70 10*3/uL [facility] No Panel Informationon 11-19 Interpretation and review of laboratory results Abnormal [facility] Performed by: [facility], [address] [place] [id number] CLIA ID: [id number] [facility] Interpretation and review of laboratory results Abnormal [facility] Performed by: [facility], [address] [facility] [address] CLIA ID: [id number] [facility] Interpretation and review of laboratory results Abnormal [facility] Basic metabolic 1998 panelon 11-18-2022 Anion gap [Moles/Vol] 6 mmol/L 3 - 13 mmol/L [facility] Calcium [Mass/Vol] 8.8 mg/dL 8.4 - 10. 4 mg/dL [facility] Chloride [Moles/Vol] 112 mmol/L High 98 - 10 7 mmol/L [facility] CO2 [Moles/Vol] 19 mmol/L Low 22 - 30 mmol/L [facility] Creatinine [Mass/Vol] 1.38 mg/dL High 0.52 - 1.04 mg/dL [facility] GFR/1.73 sq M.predicted MDRD (S/P/Bld) [Vol rate/Area] 39.5 mL/min/{1.73_m2} Low - PINF [facility] Comment on above: Calculation based on the Chronic Kidney Disease Epidemiology Collaboration (CKD-EPI) equation refit without adjustment for race Glucose [Mass/Vol] 129 mg/dL High 70 - 100 mg/dL [facility] Interpretation and review of laboratory results Abnormal [facility] Potassium [Moles/Vol] 3.8 mmol/L 3.5 - 5.1 mmol/L [facility] Sodium [Moles/Vol] 138 mmol/L 135 - 145 mmol/L [facility] Urea nitrogen [Mass/Vol] 35 mg/dL High 7 - 17 mg/dL [facility] Slightly Hemolyzed [facility] CBC W Auto Differential pane l (Bld)on 11-18-2022 Basophils (Bld) [#/Vol] 0.0 10*3/uL 0.0 - 0.2 10*3/uL [facility] Basophils/100 WBC (Bld) 0.7 % 0.0 - 2.0 % [facility] Eosinophils (Bld) [#/Vol] 0.1 10*3/uL 0. 0 - 0.5 10*3/uL [facility] Eosinophils/100 WBC (Bld) 2.5 % 1.0 - 6.0 % [facility] Erythrocyte distribution width (RBC) [Ratio] 13.9 % 11.5 - 14.5 % [facility] Hematocrit (Bld) [Volume fraction] 31.2 % Low 35.0 - 47.0 % [facility] Hemoglobin (Bld) [Mass/Vol] 10.4 g/dL Low 11.7 - 16.0 g/dL [facility] Interpretation and review of laboratory results Abnormal [facility] Lymphocytes (Bld) [#/Vol] 0.8 10*3/uL Low 1. 0 - 4.3 10*3/uL [facility] Lymphocytes/100 WBC (Bld) 21.2 % 20 .0 - 40.0 % [facility] MCH (RBC) [Entitic mass] 31.7 pg 26. 0 - 34.0 pg [facility] MCHC (RBC) [Mass/Vol] 33.2 % 32.0 - 36.0 % [facility] MCV (RBC) [Entitic vol] 95.5 fL 80.0 - 98.0 fL [facility] Monocytes (Bld) [#/Vol] 0.6 10*3/uL 0.0 - 0.8 10*3/uL [facility] Monocytes/100 WBC (Bld) 16.3 % High 2.0 - 10.0 % [facility] Neutrophils (Bld) [#/Vol] 2.2 10*3/uL 1. 8 - 7.0 10*3/uL [facility] Neutrophils/100 WBC (Bld) 59.3 % 40 .0 - 80.0 % [facility] Nucleated RBC/100 WBC (Bld) [Ratio] 0.1 % [facility] Platelet mean volume (Bld) [Entitic vol] 10.3 fL 7.4 - 12.4 fL [facility] Platelets (Bld) [#/Vol] 89 10*3/uL Low 140 - 440 10*3/uL [facility] RBC (Bld) [#/Vol] 3.27 10*6/uL Low 3.8 - 5.20 10*6/uL [facility] WBC (Bld) [#/Vol] 3.6 10*3/uL 3.6 - 10.7 10*3/uL [facility] CBC W Auto Differential pane l (Bld)Ordered By: Ovidio Carson on 11-18-2022 Basophils (Bld) [#/Vol] 0.0 10*3/uL 0.0 - 0.2 10*3/uL [facility] Basophils/100 WBC (Bld) 0.5 % 0.0 - 2.0 % [facility] Eosinophils (Bld) [#/Vol] 0.0 10*3/uL 0. 0 - 0.5 10*3/uL [facility] Eosinophils/100 WBC (Bld) 0.9 % Low 1.0 - 6.0 % [facility] Erythrocyte distribution width (RBC) [Ratio] 13.7 % 11.5 - 14.5 % [facility] Hematocrit (Bld) [Volume fraction] 33.2 % Low 35.0 - 47.0 % [facility] Hemoglobin (Bld) [Mass/Vol] 11.2 g/dL Low 11.7 - 16.0 g/dL [facility] Interpretation and review of laboratory results Abnormal [facility] th Lymphocytes (Bld) [#/Vol] 0.7 10*3/uL Low 1. 0 - 4.3 10*3/uL [facility] Lymphocytes/100 WBC (Bld) 15.0 % Low 20 .0 - 40.0 % [facility] MCH (RBC) [Entitic mass] 31.6 pg 26. 0 - 34.0 pg [facility] MCHC (RBC) [Mass/Vol] 33.7 % 32.0 - 36.0 % [facility] MCV (RBC) [Entitic vol] 93.8 fL 80.0 - 98.0 fL [facility] Monocytes (Bld) [#/Vol] 0.7 10*3/uL 0.0 - 0.8 10*3/uL [facility] Monocytes/100 WBC (Bld) 15.2 % High 2.0 - 10.0 % [facility] Neutrophils (Bld) [#/Vol] 3.0 10*3/uL 1. 8 - 7.0 10*3/uL [facility] Neutrophils/100 WBC (Bld) 68.4 % 40 .0 - 80.0 % [facility] Nucleated RBC/100 WBC (Bld) [Ratio] 0.1 % [facility] Platelet mean volume (Bld) [Entitic vol] 9.7 fL 7.4 - 12.4 fL [facility] Platelets (Bld) [#/Vol] 92 10*3/uL Low 140 - 440 10*3/uL [facility] RBC (Bld) [#/Vol] 3.54 10*6/uL Low 3.8 - 5.20 10*6/uL [facility] WBC (Bld) [#/Vol] 4.4 10*3/uL 3.6 - 10.7 10*3/uL [facility] COVID-19, Flu A/B, and RSV C omboon 11-18-2022 Interpretation and review of laboratory results Normal [facility] Comprehensive metabolic 1998 panelon 11-18-2022 Albumin [Mass/Vol] 3.7 g/dL 3.5 - 5.0 g/dL [facility] ALP [Catalytic activity/Vol] 135 U/L High 38 - 126 U/L [facility] ALT [Catalytic activity/Vol] 29 U/L 0 - 34 U/L [facility] Anion gap [Moles/Vol] 6 mmol/L 3 - 13 mmol/L [facility] AST [Catalytic activity/Vol] 56 U/L High 15 - 46 U/L [facility] Bilirubin [Mass/Vol] 1.1 mg/dL 0.2 - 1 .3 mg/dL [facility] Calcium [Mass/Vol] 9.4 mg/dL 8.4 - 10. 4 mg/dL [facility] Chloride [Moles/Vol] 109 mmol/L High 98 - 10 7 mmol/L [facility] CO2 [Moles/Vol] 22 mmol/L 22 - 30 mmol/L [facility] Creatinine [Mass/Vol] 1.56 mg/dL High 0.52 - 1.04 mg/dL [facility] GFR/1.73 sq M.predicted MDRD (S/P/Bld) [Vol rate/Area] 34.1 mL/min/{1.73_m2} Low - PINF [facility] Comment on above: Calculation based on the Chronic Kidney Disease Epidemiology Collaboration (CKD-EPI) equation refit without adjustment for race Glucose [Mass/Vol] 162 mg/dL High 70 - 100 mg/dL [facility] Interpretation and review of laboratory results Abnormal [facility] Potassium [Moles/Vol] 4.1 mmol/L 3.5 - 5.1 mmol/L [facility] Protein [Mass/Vol] 7.0 g/dL 6.3 - 8.2 g/dL [facility] Sodium [Moles/Vol] 137 mmol/L 135 - 145 mmol/L [facility] Urea nitrogen [Mass/Vol] 38 mg/dL High 7 - 17 mg/dL [facility] Laboratory - Chemistry and C hemistry - challengeon 11-18-2022 Glucose [Mass/Vol] 172 mg/dL High 70 - 100 mg/dL [facility] Glucose [Mass/Vol] 153 mg/dL High 70 - 100 mg/dL [facility] Glucose [Mass/Vol] 126 mg/dL High 70 - 100 mg/dL [facility] Lactate [Moles/Vol] 1.2 mmol/L 0.7 - 2. 0 mmol/L [facility] Laboratory - Microbiology an d Antimicrobial susceptibilityon 11-18-2022 FLUAV RNA HUGO+probe Ql (Resp) Not detected Not Detected [facility] FLUBV RNA HUGO+probe Ql (Resp) Not detected Not Detected [facility] RSV RNA HUGO+probe Ql (Resp) Not detected Not Detected [facility] SARS-CoV-2 (COVID-19) RNA HUGO+probe Ql (Resp) Not detected Not Detected [facility] SARS-CoV-2 (COVID-19) RNA HUGO+probe Ql (Unsp spec) Methodology: real-time, RT-PCR The SARS-CoV-2, Flu A/B, and RSV Combo assay is intended for in vitro diagnostic use under the FDA Emergency Use Authorization (EUA). This test has not been FDA cleared or approved. In compliance with this authorization, please visit www.fda.gov/media/ 3197/download or www.fda.gov/media/ 5027/download to access the applicable information sheets. [facility] No Panel Informationon 11-18 Interpretation and review of laboratory results Abnormal [facility] Performed by: [facility], [address] [place] [address] CLIA ID: [id number] [facility] Interpretation and review of laboratory results Abnormal [facility] Performed by: [facility], [address] [place] [id number] CLIA ID: [id number] [facility] Interpretation and review of laboratory results Abnormal [facility] Performed by: [facility], [address] [place] [id number] CLIA ID: [id number] [facility] Interpretation and review of laboratory results Normal [facility] Laboratory - Chemistry and C hemistry - challengeon 11-17-2022 Glucose [Mass/Vol] 203 mg/dL High 70 - 100 mg/dL [facility] No Panel Informationon 11-17 Interpretation and review of laboratory results Abnormal [facility]formed by: [facility] [place] [facility], [address] [place] [id number] CLIA ID: [id number] [facility] Urinalysis complete panel (U )Ordered By: Kyung Frederick on 11-17-2022 Bacteria LM.HPF (Urine sed) [#/Area] Moderate Abnormal Negative /HPF [facility] Bilirubin Ql (U) Negative Negative mg/dL [facility] Clarity (U) Clear Clear [facility] Color (U) Yellow Lt. Yellow [facility] Epithelial cells.squamous LM.HPF (Urine sed) [#/Area] 3-5 [facility] Glucose Ql (U) 200 mg/dL Abnormal Normal (<70) [facility] Hemoglobin Ql (U) 0.06 mg/dL Abnormal Negative [facility] ealt Interpretation and review of laboratory results Abnormal [facility] Ketones (U) [Mass/Vol] Negative Negat balbina mg/dL [facility] Leukocyte esterase Test strip Ql (U) Negative Negative Yomi/uL [facility] Mucus LM.HPF (Urine sed) [#/Area] Few Negative /LPF [facility] Nitrite Ql (U) Negative Negative [facility] pH (U) 5.5 [pH] 5.0 - 8.0 pH [facility] Protein (U) [Mass/Vol] 50 mg/dL Abnormal Negative [facility] RBC LM.HPF (Urine sed) [#/Area] 0-2 [facility] Specific gravity (U) [Rel density] 1.020 1.005 - 1.030 [facility] Urobilinogen (U) [Mass/Vol] Normal Normal (0-1) mg/dL [facility] WBC LM.HPF (Urine sed) [#/Area] 3-5 [facility] XR Chest Single viewon 11-17 1. No acute finding suspected given very low lung volumes. Report Dictated on Electronically Signed By: Clinton Serna Electronically Signed Date/Time: 11/17/2022 11:45 PM T [facility] Patient Name: MIKEL WINSTON [...] no vascular congestion or airspace consolidation suspected. [facility] Clinton eSrna MD - 11/17/2022 [facility] Name[facility] 1945 [id number] Exam Date/Time: 11/17/2022 23:44 Procedure: XR CHEST [...] Electronically Signed Date/Time: 11/17/2022 11:45 PM EDT [facility] Radiology Study observation (narrative) [facility] alth XR Chest Single viewOrdered By: Clinton Serna on 11-17-2022 [facility] [employer] Work Phone: CNCOon 08-05-2022 [facility] Letter Text Normal [facility] Basic metabolic 2000 panelon 05-03-2022 Anion gap [Moles/Vol] 12 mmol/L 9 - 18 mmol/L [facility] Calcium [Mass/Vol] 10.6 mg/dL High 8.5 - 10. 2 mg/dL [facility] Chloride [Moles/Vol] 103 mmol/L 97 - 10 5 mmol/L [facility] CO2 [Moles/Vol] 26 mmol/L 22 - 30 mmol/L [facility] Creatinine [Mass/Vol] 1.83 mg/dL High 0.58 - 0.96 mg/dL [facility] Estimated Glomerular Filtration Rate 28 mL/min/1.73m Low >=60 mL/min/1.[address] [facility] Glucose [Mass/Vol] 154 mg/dL High 74 - 99 mg/dL [facility] Potassium [Moles/Vol] 4.5 mmol/L 3.7 - 5.1 mmol/L [facility] Sodium [Moles/Vol] 141 mmol/L 136 - 144 mmol/L [facility] Urea nitrogen [Mass/Vol] 37 mg/dL High 7 - 21 mg/dL [facility] HbA1c (Bld)on 05-03-2022 Average glucose Estimated from glycated hemoglobin (Bld) [Mass/Vol] 151 mg/dL [facility] HbA1c (Bld) [Mass fraction] 6.9 % High 4.3 - 5.6 % [facility] Comp Panel with Mg Reflexon 12-22-2021 Calcium [Mass/Vol] 9.4 mg/dL Normal 8.4-10.4 [facility] Comment on above: Performed By: #### B GLU #### [facility] [address] [place] [address] ALP [Catalytic activity/Vol] 108 U/L Normal 38-126 [facility] Comment on above: Performed By: #### B GLU #### [facility] [address] [place] [address] ALT [Catalytic activity/Vol] 14 U/L Normal 0-34 [facility] Comment on above: Result Comment: The ALT test is performed by an updated assay method. Please note that the reference intervals have been changed and are now sex specific. Performed By: #### B GLU #### [facility] [address] [place] [address] Anion gap [Moles/Vol] 5 mmol/L Normal 3-13 [facility] Comment on above: Performed By: #### B GLU #### [facility] [address] [place] [address] AST [Catalytic activity/Vol] 39 U/L Normal 15-46 [facility] Comment on above: Performed By: #### B GLU #### [facility] [address] [place] [address] Bilirubin [Mass/Vol] 1.0 mg/dL Normal 0.2-1.3 [facility] Comment on above: Performed By: #### B GLU #### [facility] [address] [place] [address] CO2 [Moles/Vol] 28 mmol/L Normal 22-30 [facility] Comment on above: Performed By: #### B GLU #### [facility] [address] [place] [address] Glucose [Mass/Vol] 124 mg/dL High 70-100 [facility] Comment on above: Performed By: #### B GLU #### [facility] [address] [place] [address] Protein [Mass/Vol] 6.1 g/dL Low 6.3-8.2 [facility] Comment on above: Performed By: #### B GLU #### [facility] [address] [place] [address] Urea nitrogen [Mass/Vol] 20 mg/dL Normal 9-20 [facility] Comment on above: Performed By: #### B GLU #### [facility] [address] [place] [address] Creatinine [Mass/Vol] 0.98 mg/dL Normal 0.52-1.25 [facility] Comment on above: Performed By: #### B GLU #### [facility] [address] [place] [address] GFR/1.73 sq M.predicted among blacks MDRD (S/P/Bld) [Vol rate/Area] 64.7 mL/min/{1.73_m2} Normal >60 [facility] Comment on above: Performed By: #### B GLU #### [facility] [address] [place] [address] GFR/1.73 sq M.predicted among non-blacks MDRD (S/P/Bld) [Vol rate/Area] 55.9 mL/min/{1.73_m2} Abnormal >60 [facility] Comment on above: Result Comment: KDIG [...] secretion. Performed By: #### B GLU #### [facility] [address] [place] [address] Albumin [Mass/Vol] 3.1 g/dL Low 3.5-5.0 [facility] Comment on above: Performed By: #### B GLU #### [facility] [address] [place] [address] Chloride [Moles/Vol] 103 mmol/L Normal 98-107 [facility] Comment on above: Performed By: #### B GLU #### [facility] [address] [facility] [place] [address] Potassium [Moles/Vol] 4.1 mmol/L Normal 3.5-5.1 [facility] Comment on above: Performed By: #### B GLU #### [facility] [address] [facility] [place] [address] Sodium [Moles/Vol] 136 mmol/L Normal 135-145 [facility] Comment on above: Performed By: #### B GLU #### [facility] [address] [facility] [place] [address] Comprehensive Metabolic Pane l w/ Reflex to MGon 12-22-2021 Albumin [Mass/Vol] 3.1 g/dL Low 3.5 - 5.0 g/dL [facility] ALP (Bld) [Catalytic activity/Vol] 108 U/L 38 - 126 U/L [facility] ALT [Catalytic activity/Vol] 14 U/L 0 - 34 U/L [facility] Comment on above: The ALT test is perf ormed by an updated assay method. Please note that the reference intervals have been changed and are now sex specific. Anion gap [Moles/Vol] 5 mmol/L 3 - 13 mmol/L [facility] AST [Catalytic activity/Vol] 39 U/L 15 - 46 U/L [facility] Bilirubin [Mass/Vol] 1.0 mg/dL 0.2 - 1 .3 mg/dL [facility] Calcium [Mass/Vol] 9.4 mg/dL 8.4 - 10. 4 mg/dL [facility] Chloride [Moles/Vol] 103 mmol/L 98 - 10 7 mmol/L [facility] CO2 [Moles/Vol] 28 mmol/L 22 - 30 mmol/L [facility] Creatinine [Mass/Vol] 0.98 mg/dL 0.52 - 1.25 mg/dL [facility] EGFR IF NonAfrican Jamaican 55.9 mL/min Abnormal >60 [facility] Comment on above: [...] 124 mg/dL High 70 - 100 mg/dL [facility] Interpretation and review of laboratory results Abnormal [facility] Potassium [Moles/Vol] 4.1 mmol/L 3.5 - 5.1 mmol/L [facility] Sodium [Moles/Vol] 136 mmol/L 135 - 145 mmol/L [facility] Urea nitrogen (BldV) [Mass/Vol] 20 mg/dL 9 - 20 mg/dL [facility] Test Performed by [facility], [address] [place], [place] [id number] [place] [address] LAB [facility] Glucose,Bedsideon 12-22-2021 Glucose [Mass/Vol] 117 mg/dL High 70-100 [facility] Comment on above: Result Comment: Test performed by glucose meter. Results may be 10%-15% lower than serum/plasma values. (CLIA ID [id number]) Performed By: #### B NP3, CMP3, HEMDF #### [facility] [address] [place] [address] Glucose [Mass/Vol] 164 mg/dL High 70-100 [facility] Comment on above: Result Comment: Test performed by glucose meter. Results may be 10%-15% lower than serum/plasma values. (CLIA ID [id number]) Performed By: #### B GLU #### [facility] [address] [place] [address] Glucose [Mass/Vol] 115 mg/dL High 70-100 [facility] Comment on above: Result Comment: Test performed by glucose meter. Results may be 10%-15% lower than serum/plasma values. (CLIA ID [id number]) Performed By: #### B GLU #### [facility] [address] [place] [address] POCT Glucoseon 12-22-2021 Glucose [Mass/Vol] 117 mg/dL High 70 - 100 mg/dL [facility] Work Phone: Comment on above: Test performed by gl ucose meter. Results may be 10%-15% lower than serum/plasma values. (CLIA ID [id number]) Interpretation and review of laboratory results Abnormal [facility] Work Phone: Test Performed by [facility], [address] [place], [place] [id number] [place] [address] LAB [facility] Work Phone: Test Performed by [facility], [address] [place], [place] [id number] [place] [address] LAB Glucose [Mass/Vol] 115 mg/dL High 70 - 100 mg/dL [facility] Work Phone: Comment on above: Test performed by gl ucose meter. Results may be 10%-15% lower than serum/plasma values. (CLIA ID [id number]) Interpretation and review of laboratory results Abnormal [facility] Work Phone: Test Performed by [facility], [address] [place] [address] [facility] LAB [facility] Work Phone: POCT GlucoseOrdered By: Johny Biggs on 12-22-2021 Glucose [Mass/Vol] 164 mg/dL High 70 - 100 mg/dL [facility] Work Phone: Comment on above: Test performed by gl ucose meter. Results may be 10%-15% lower than serum/plasma values. (CLIA ID [id number]) Interpretation and review of laboratory results Abnormal [facility] Work Phone: [facility] Work Phone: Comp Panel with Mg Reflexon 12-21-2021 ALP [Catalytic activity/Vol] 102 U/L Normal 38-126 [facility] Comment on above: Performed By: #### B GLU #### [facility] [address] [place] [address] ALT [Catalytic activity/Vol] 14 U/L Normal 0-34 [facility] Comment on above: Result Comment: The ALT test is performed by an updated assay method. Please note that the reference intervals have been changed and are now sex specific. Performed By: #### B GLU #### [facility] [address] [place] [address] AST [Catalytic activity/Vol] 40 U/L Normal 15-46 [facility] Comment on above: Performed By: #### B GLU #### [facility] [address] [place] [address] Calcium [Mass/Vol] 9.4 mg/dL Normal 8.4-10.4 [facility] Comment on above: Performed By: #### B GLU #### [facility] [address] [place] [address] Glucose [Mass/Vol] 122 mg/dL High 70-100 [facility] Comment on above: Performed By: #### B GLU #### [facility] [address] [place] [address] Protein [Mass/Vol] 5.8 g/dL Low 6.3-8.2 [facility] Comment on above: Performed By: #### B GLU #### [facility] [address] [place] [address] Urea nitrogen [Mass/Vol] 22 mg/dL High 9-20 [facility] Comment on above: Performed By: #### B GLU #### [facility] [address] [place] [address] Anion gap [Moles/Vol] 3 mmol/L Normal 3-13 [facility] Comment on above: Performed By: #### B GLU #### [facility] [address] [place] [address] Bilirubin [Mass/Vol] 0.9 mg/dL Normal 0.2-1.3 [facility] Comment on above: Performed By: #### B GLU #### [facility] [address] [place] [address] CO2 [Moles/Vol] 31 mmol/L High 22-30 [facility] Comment on above: Performed By: #### B GLU #### [facility] [address] [place] [address] Creatinine [Mass/Vol] 1.01 mg/dL Normal 0.52-1.25 [facility] Comment on above: Performed By: #### B GLU #### [facility] [address] [place] [address] GFR/1.73 sq M.predicted among blacks MDRD (S/P/Bld) [Vol rate/Area] 62.4 mL/min/{1.73_m2} Normal >60 [facility] Comment on above: Performed By: #### B GLU #### [facility] [address] [place] [address] GFR/1.73 sq M.predicted among non-blacks MDRD (S/P/Bld) [Vol rate/Area] 53.9 mL/min/{1.73_m2} Abnormal >60 [facility] Comment on above: Result Comment: KDIG [...] secretion. Performed By: #### B GLU #### [facility] [address] [place] [address] Albumin [Mass/Vol] 3.0 g/dL Low 3.5-5.0 [facility] Comment on above: Performed By: #### B GLU #### [facility] [address] [place] [address] Chloride [Moles/Vol] 103 mmol/L Normal 98-107 [facility] Comment on above: Performed By: #### B GLU #### [facility] [address] [place] [address] Potassium [Moles/Vol] 3.9 mmol/L Normal 3.5-5.1 [facility] Comment on above: Performed By: #### B GLU #### [facility] [address] [place] [address] Sodium [Moles/Vol] 137 mmol/L Normal 135-145 [facility] Comment on above: Performed By: #### B GLU #### [facility] [address] [place] [address] Comprehensive Metabolic Pane l w/ Reflex to MGon 12-21-2021 Albumin [Mass/Vol] 3.0 g/dL Low 3.5 - 5.0 g/dL [facility] ALP (Bld) [Catalytic activity/Vol] 102 U/L 38 - 126 U/L [facility] ALT [Catalytic activity/Vol] 14 U/L 0 - 34 U/L [facility] Comment [...] - 1.25 mg/dL [facility] EGFR IF NonAfrican Jamaican 53.9 mL/min Abnormal >60 [facility] Comment on [...] 122 mg/dL High 70 - 100 mg/dL [facility] Interpretation and review of laboratory results Abnormal [facility] Potassium [Moles/Vol] 3.9 mmol/L 3.5 - 5.1 mmol/L [facility] Sodium [Moles/Vol] 137 mmol/L 135 - 145 mmol/L [facility] Urea nitrogen (BldV) [Mass/Vol] 22 mg/dL High 9 - 20 mg/dL [facility] Test Performed by [facility], [address] [place] [address] [facility] Glucose,Bedsideon 12-21-2021 Glucose [Mass/Vol] 139 mg/dL High 70-100 [facility] Comment on above: Result Comment: Test performed by glucose meter. Results may be 10%-15% lower than serum/plasma values. (CLIA ID [id number]) Performed By: #### B NP3, CMP3, HEMDF #### [facility] [address] [place] [address] Glucose [Mass/Vol] 99 mg/dL Normal 70-100 [facility] Comment on above: Result Comment: Test performed by glucose meter. Results may be 10%-15% lower than serum/plasma values. (CLIA ID [id number]) Performed By: #### B NP3, CMP3, HEMDF #### [facility] [address] [place] [address] Glucose [Mass/Vol] 156 mg/dL High 70-100 [facility] Comment on above: Result Comment: Test performed by glucose meter. Results may be 10%-15% lower than serum/plasma values. (CLIA ID [id number]) Performed By: #### B GLU #### [facility] [address] [place] [address] Glucose [Mass/Vol] 123 mg/dL High 70-100 [facility] Comment on above: Result Comment: Test performed by glucose meter. Results may be 10%-15% lower than serum/plasma values. (CLIA ID [id number]) Performed By: #### B GLU #### [facility] [address] [place] [address] POCT Glucoseon 12-21-2021 Glucose [Mass/Vol] 139 mg/dL High 70 - 100 mg/dL [facility] Work Phone: Comment on above: Test performed by gl ucose meter. Results may be 10%-15% lower than serum/plasma values. (CLIA ID [id number]) Interpretation and review of laboratory results Abnormal [facility] Work Phone: [phone] Test Performed by [facility] [employer] [facility], [address] LAB [facility] Work Phone: [phone] Glucose [Mass/Vol] 99 mg/dL 70 - 100 mg/dL [facility] Work Phone: [phone] Comment on above: Test performed by gl ucose meter. Results may be 10%-15% lower than serum/plasma values. (CLIA ID [id number]) Test Performed by [facility] [employer], [address] LAB [facility] Work Phone: [phone] Glucose [Mass/Vol] 156 mg/dL High 70 - 100 mg/dL [facility] Work Phone: [phone] Comment on above: Test performed by gl ucose meter. Results may be 10%-15% lower than serum/plasma values. (CLIA ID [id number]) Interpretation and review of laboratory results Abnormal [facility] Work Phone: [phone] Test Performed by [employer], [facility] [address] LAB [facility] Work Phone: [phone] Glucose [Mass/Vol] 123 mg/dL High 70 - 100 mg/dL [facility] Work Phone: [phone] Comment on above: Test performed by gl ucose meter. Results may be 10%-15% lower than serum/plasma values. (CLIA ID [id number]) Interpretation and review of laboratory results Abnormal [facility] Work Phone: [phone] Test Performed by [facility], [facility] [address] LAB [facility] Work Phone: [phone] CULTURE BLOODon 12-20-2021 Microscopic examination of blood, culture CULTURE BLOOD --> Status: F No growth at 5 days. Normal [facility] [employer] [facility] Comment on above: Performed By: #### B NP3, CMP3, HEMDF #### [facility] [address] [place] [address] CULTURE BLOOD (Two)on 2021 Microscopic examination of blood, culture CULTURE BLOOD (Two) --> Status: F No growth at 5 days. Normal [facility] Comment on above: Performed By: #### B GLU #### [facility] [address] [place] [address] Comp Panel with Mg Reflexon 12-20-2021 ALP [Catalytic activity/Vol] 88 U/L Normal 38-126 [facility] Comment on above: Performed By: #### B NP3, CMP3, HEMDF #### [facility] [address] [place] [address] ALT [Catalytic activity/Vol] 13 U/L Normal 0-34 [facility] Comment on above: Result Comment: The ALT test is performed by an updated assay method. Please note that the reference intervals have been changed and are now sex specific. Performed By: #### B NP3, CMP3, HEMDF #### [facility] [address] [place] [address] Anion gap [Moles/Vol] 3 mmol/L Normal 3-13 [facility] Comment on above: Performed By: #### B NP3, CMP3, HEMDF #### [facility] [address] [place] [address] AST [Catalytic activity/Vol] 85 U/L High 15-46 [facility] Comment on above: Performed By: #### B NP3, CMP3, HEMDF #### [facility] [address] [place] [address] Bilirubin [Mass/Vol] 1.2 mg/dL Normal 0.2-1.3 [facility] Comment on above: Performed By: #### B NP3, CMP3, HEMDF #### [facility] [address] [place] [address] Calcium [Mass/Vol] 9.3 mg/dL Normal 8.4-10.4 [facility] Comment on above: Performed By: #### B NP3, CMP3, HEMDF #### [facility] [address] [place] [address] CO2 [Moles/Vol] 33 mmol/L High 22-30 [facility] Comment on above: Performed By: #### B NP3, CMP3, HEMDF #### [facility] [address] [place] [address] Glucose [Mass/Vol] 125 mg/dL High 70-100 [facility] Comment on above: Performed By: #### B NP3, CMP3, HEMDF #### [facility] [address] [place] [address] Protein [Mass/Vol] 6.0 g/dL Low 6.3-8.2 [facility] Comment on above: Performed By: #### B NP3, CMP3, HEMDF #### [facility] [address] [place] [address] Urea nitrogen [Mass/Vol] 26 mg/dL High 9-20 [facility] Comment on above: Performed By: #### Winston NP3, CMP3, HEMDF #### [facility] [address] [place] [address] Creatinine [Mass/Vol] 1.02 mg/dL Normal 0.52-1.25 [facility] Comment on above: Performed By: #### B NP3, CMP3, HEMDF #### [facility] [address] [place] [address] GFR/1.73 sq M.predicted among blacks MDRD (S/P/Bld) [Vol rate/Area] 61.7 mL/min/{1.73_m2} Normal >60 [facility] Comment on above: Performed By: #### B NP3, CMP3, HEMDF #### [facility] [address] [place] [address] GFR/1.73 sq M.predicted among non-blacks MDRD (S/P/Bld) [Vol rate/Area] 53.2 mL/min/{1.73_m2} Abnormal >60 [facility] Comment on above: Result Comment: KDIG [...] By: #### B NP3, CMP3, HEMDF #### [facility] [address] [place] [address] Albumin [Mass/Vol] 3.2 g/dL Low 3.5-5.0 [facility] Comment on above: Performed By: #### B NP3, CMP3, HEMDF #### [facility] [address] [place] [address] Chloride [Moles/Vol] 101 mmol/L Normal 98-107 [facility] Comment on above: Performed By: #### B NP3, CMP3, HEMDF #### [facility] [address] [place] [address] Potassium [Moles/Vol] 3.8 mmol/L Normal 3.5-5.1 [facility] Comment on above: Performed By: #### B NP3, CMP3, HEMDF #### [facility] [address] [place] [address] Sodium [Moles/Vol] 136 mmol/L Normal 135-145 [facility] Comment on above: Performed By: #### B NP3, CMP3, HEMDF #### [facility] [address] [place] [address] Comprehensive Metabolic Pane l w/ Reflex to MGon 12-20-2021 Albumin [Mass/Vol] 3.2 g/dL Low 3.5 - 5.0 g/dL [facility] ALP (Bld) [Catalytic activity/Vol] 88 U/L 38 - 126 U/L [facility] ALT [Catalytic activity/Vol] 13 U/L 0 - 34 U/L [facility] Comment on above: The ALT test is [...] - 1.25 mg/dL [facility] EGFR IF NonAfrican Jamaican 53.2 mL/min Abnormal >60 [facility] Comment on [...] 125 mg/dL High 70 - 100 mg/dL [facility] Interpretation and review of laboratory results Abnormal [facility] Potassium [Moles/Vol] 3.8 mmol/L 3.5 - 5.1 mmol/L [facility] Sodium [Moles/Vol] 136 mmol/L 135 - 145 mmol/L [facility] Urea nitrogen (BldV) [Mass/Vol] 26 mg/dL High 9 - 20 mg/dL [facility] Test Performed by [facility], [address] [place], [place] [address] [facility] Glucose,Bedsideon 12-20-2021 Glucose [Mass/Vol] 155 mg/dL High 70-100 [facility] Comment on above: Result Comment: Test performed by glucose meter. Results may be 10%-15% lower than serum/plasma values. (CLIA ID [id number]) Performed By: #### B NP3, CMP3, HEMDF #### [facility] [address] [place] [address] Glucose [Mass/Vol] 116 mg/dL High 70-100 [facility] Comment on above: Result Comment: Test performed by glucose meter. Results may be 10%-15% lower than serum/plasma values. (CLIA ID [id number]) Performed By: #### B NP3, CMP3, HEMDF #### [facility] [address] [place] [address] Glucose [Mass/Vol] 139 mg/dL High 70-100 [facility] Comment on above: Result Comment: Test performed by glucose meter. Results may be 10%-15% lower than serum/plasma values. (CLIA ID [id number]) Performed By: #### B GLU #### [facility] [address] [place] [address] Glucose [Mass/Vol] 135 mg/dL High 70-100 [facility] Comment on above: Result Comment: Test performed by glucose meter. Results may be 10%-15% lower than serum/plasma values. (CLIA ID [id number]) Performed By: #### B GLU #### [facility] [address] [place] [address] No Panel Informationon 12-20 Blood Culture, Routine No growth at 5 days. [facility] Test Performed by [facility], [address] [place] [place] [address] [facility] POCT Glucoseon 12-20-2021 Glucose [Mass/Vol] 155 mg/dL High 70 - 100 mg/dL [facility] Work Phone: Comment on above: Test performed by gl ucose meter. Results may be 10%-15% lower than serum/plasma values. (CLIA ID [id number]) Interpretation and review of laboratory results Abnormal [facility] Work Phone: Test Performed by [facility] [employer] [facility], [address] LAB [facility] Work Phone: [phone] Glucose [Mass/Vol] 116 mg/dL High 70 - 100 mg/dL [facility] Comment on above: Test performed by gl ucose meter. Results may be 10%-15% lower than serum/plasma values. (CLIA ID [id number]) Interpretation and review of laboratory results Abnormal [facility] Test Performed by [facility], [facility] [address] LAB [facility] Glucose [Mass/Vol] 139 mg/dL High 70 - 100 mg/dL [facility] Comment on above: Test performed by gl ucose meter. Results may be 10%-15% lower than serum/plasma values. (CLIA ID [id number]) Interpretation and review of laboratory results Abnormal [facility] Test Performed by [facility], [address] LAB [facility] Glucose [Mass/Vol] 135 mg/dL High 70 - 100 mg/dL [facility] Work Phone: Comment on above: Test performed by gl ucose meter. Results may be 10%-15% lower than serum/plasma values. (CLIA ID [id number]) Interpretation and review of laboratory results Abnormal [facility] Work Phone: Test Performed by [facility], [address] LAB [facility] Work Phone: Vancomycinon 12-20-2021 Vancomycin 22.8 ug/mL High 15.0-20.0 [facility] Comment on above: Result Comment: . Performed By: #### B GLU #### [facility] [address] [place] [address] Vancomycin Level, Randomon 0 12-20-2021 Interpretation and review of laboratory results Abnormal [facility] Vancomycin 22.8 ug/mL High 15.0 - 20.0 ug/mL [facility] Comment on above: . Test Performed by [facility], [address] [place] [address] [facility] Comp Panel with Mg Reflexon 12-19-2021 ALP [Catalytic activity/Vol] 104 U/L Normal 38-126 [facility] Comment on above: Performed By: #### B NP3, CMP3, HEMDF #### [facility] [address] [place] [address] ALT [Catalytic activity/Vol] 12 U/L Normal 0-34 [facility] Comment on above: Result Comment: The ALT test is performed by an updated assay method. Please note that the reference intervals have been changed and are now sex specific. Performed By: #### B NP3, CMP3, HEMDF #### [facility] [address] [place] [address] AST [Catalytic activity/Vol] 49 U/L High 15-46 [facility] Comment on above: Performed By: #### B NP3, CMP3, HEMDF #### [facility] [address] [place] [address] Calcium [Mass/Vol] 9.1 mg/dL Normal 8.4-10.4 [facility] Comment on above: Performed By: #### B NP3, CMP3, HEMDF #### [facility] [address] [place] [address] Glucose [Mass/Vol] 117 mg/dL High 70-100 [facility] Comment on above: Performed By: #### B NP3, CMP3, HEMDF #### [facility] [address] [place] [address] Protein [Mass/Vol] 5.8 g/dL Low 6.3-8.2 [facility] Comment on above: Performed By: #### B NP3, CMP3, HEMDF #### [facility] [address] [place] [address] Urea nitrogen [Mass/Vol] 26 mg/dL High 9-20 [facility] Comment on above: Performed By: #### B NP3, CMP3, HEMDF #### [facility] [address] [place] [address] Anion gap [Moles/Vol] 2 mmol/L Low 3-13 [facility] Comment on above: Performed By: #### B NP3, CMP3, HEMDF #### [facility] [address] [place] [address] Bilirubin [Mass/Vol] 1.0 mg/dL Normal 0.2-1.3 [facility] Comment on above: Performed By: #### B NP3, CMP3, HEMDF #### [facility] [address] [place] [address] CO2 [Moles/Vol] 31 mmol/L High 22-30 [facility] Comment on above: Performed By: #### B NP3, CMP3, HEMDF #### [facility] [address] [place] [address] Creatinine [Mass/Vol] 1.13 mg/dL Normal 0.52-1.25 [facility] Comment on above: Performed By: #### B NP3, CMP3, HEMDF #### [facility] [address] [place] [address] GFR/1.73 sq M.predicted among blacks MDRD (S/P/Bld) [Vol rate/Area] 54.5 mL/min/{1.73_m2} Abnormal >60 [facility] Comment on above: Performed By: #### B NP3, CMP3, HEMDF #### [facility] [address] [place] [address] GFR/1.73 sq M.predicted among non-blacks MDRD (S/P/Bld) [Vol rate/Area] 47.0 mL/min/{1.73_m2} Abnormal >60 [facility] Comment on above: Result Comment: KDIG [...] By: #### B NP3, CMP3, HEMDF #### [facility] [address] [place] [address] Albumin [Mass/Vol] 2.9 g/dL Low 3.5-5.0 [facility] Comment on above: Performed By: #### B NP3, CMP3, HEMDF #### [facility] [address] [place] [address] Chloride [Moles/Vol] 101 mmol/L Normal 98-107 [facility] Comment on above: Performed By: #### B NP3, CMP3, HEMDF #### [facility] [address] [place] [address] Potassium [Moles/Vol] 3.7 mmol/L Normal 3.5-5.1 [facility] Comment on above: Performed By: #### B NP3, CMP3, HEMDF #### [facility] [address] [place] [address] Sodium [Moles/Vol] 133 mmol/L Low 135-145 [facility] Comment on above: Performed By: #### B NP3, CMP3, HEMDF #### [facility] [address] [place] [address] Comprehensive Metabolic Pane l w/ Reflex to MGon 12-19-2021 Albumin [Mass/Vol] 2.9 g/dL Low 3.5 - 5.0 g/dL [facility] ALP (Bld) [Catalytic activity/Vol] 104 U/L 38 - 126 U/L [facility] ALT [Catalytic activity/Vol] 12 U/L 0 - [...] - 1.25 mg/dL [facility] EGFR IF NonAfrican Jamaican 47.0 mL/min Abnormal >60 [facility] Comment on [...] 133 mmol/L Low 135 - 145 mmol/L [facility] Urea nitrogen (BldV) [Mass/Vol] 26 mg/dL High 9 - 20 mg/dL [facility] Test Performed by [facility], [address] [facility] [place], [place] [id number] [place] [address] LAB [facility] Glucose,Bedsideon 12-19-2021 Glucose [Mass/Vol] 186 mg/dL High 70-100 [facility] Comment on above: Result Comment: Test performed by glucose meter. Results may be 10%-15% lower than serum/plasma values. (CLIA ID [id number]) Performed By: #### B NP3, CMP3, HEMDF #### [facility] [address] [place] [address] Glucose [Mass/Vol] 148 mg/dL High 70-100 [facility] Comment on above: Result Comment: Test performed by glucose meter. Results may be 10%-15% lower than serum/plasma values. (CLIA ID [id number]) Performed By: #### B NP3, CMP3, HEMDF #### [facility] [address] [place] [address] Glucose [Mass/Vol] 124 mg/dL High 70-100 [facility] Comment on above: Result Comment: Test performed by glucose meter. Results may be 10%-15% lower than serum/plasma values. (CLIA ID [id number]) Performed By: #### B GLU #### [facility] [address] [place] [address] Glucose [Mass/Vol] 120 mg/dL High 70-100 [facility] Comment on above: Result Comment: Test performed by glucose meter. Results may be 10%-15% lower than serum/plasma values. (CLIA ID [id number]) Performed By: #### B GLU #### [facility] [address] [place] [address] POCT GlucoseOrdered By: Kings Cancino on 12-19-2021 Glucose [Mass/Vol] 186 mg/dL High 70 - 100 mg/dL [facility] Comment on above: Test performed by gl ucose meter. Results may be 10%-15% lower than serum/plasma values. (CLIA ID [id number]) Interpretation and review of laboratory results Abnormal [facility] PO[facility] Glucoseon 12-19-2021 Test Performed by [facility], [address] LAB Glucose [Mass/Vol] 148 mg/dL High 70 - 100 mg/dL [facility] Comment on above: Test performed by gl ucose meter. Results may be 10%-15% lower than serum/plasma values. (CLIA ID [id number]) Interpretation and review of laboratory results Abnormal [facility] Test Performed by [facility], [address] [place], [address] LAB [facility] Glucose [Mass/Vol] 124 mg/dL High 70 - 100 mg/dL [facility] Comment on above: Test performed by gl ucose meter. Results may be 10%-15% lower than serum/plasma values. (CLIA ID [id number]) Interpretation and review of laboratory results Abnormal [facility] Test Performed by [facility], [address] [place], [address] LAB [facility] Glucose [Mass/Vol] 120 mg/dL High 70 - 100 mg/dL [facility] Comment on above: Test performed by gl ucose meter. Results may be 10%-15% lower than serum/plasma values. (CLIA ID [id number]) Interpretation and review of laboratory results Abnormal [facility] Test Performed by [facility], [address] [place], [address] LAB [facility] Vancomycin Level, Troughon 0 12-19-2021 Interpretation and review of laboratory results Abnormal [facility] Vancomycin Tr 27 ug/mL High 15.0 - 20.0 ug/mL [facility] Comment on above: . Test Performed by [facility], [address] LAB [facility] Vancomycin Troughon 12-20-19 22 Vancomycin Trough 27.0 ug/mL High 15.0-20.0 [facility] Comment on above: Result Comment: . Performed By: #### B NP3, CMP3, HEMDF #### [facility] [address] [place] [address] Brain Natriuretic Peptideon 12-18-2021 Natriuretic peptide B (Bld) [Mass/Vol] 7432 pg/mL High 0 - 450 pg/mL [facility] CBC with Auto Differentialon 12-18-2021 Absolute Baso # 0.1 10*3/uL 0.0 - 0.2 10*3/uL [facility] Absolute Neut # 3.8 10*3/uL 1.8 - 7.0 10*3/uL [facility] Hemoglobin.gastrointestin al spec 1 Ql (Stl) 10.4 g/dL Low 11.7 - 16.0 g/dL [facility] MCHC (RBC) [Mass/Vol] 33.8 % 32.0 - 36.0 % [facility] Platelet distribution width (Bld) [Ratio] 13.0 % 11.5 - 14.5 % [facility] Comp Metabolic Panelon 12-18 ALT [Catalytic activity/Vol] 11 U/L Normal 0-34 [facility] Comment on above: Result Comment: The ALT test is performed by an updated assay method. Please note that the reference intervals have been changed and are now sex specific. Performed By: #### B NP3, CMP3, HEMDF #### [facility] [address] [place] [address] Calcium [Mass/Vol] 9.1 mg/dL Normal 8.4-10.4 [facility] Comment on above: Performed By: #### B NP3, CMP3, HEMDF #### [facility] [address] [place] [address] Glucose [Mass/Vol] 121 mg/dL High 70-100 [facility] Comment on above: Performed By: #### B NP3, CMP3, HEMDF #### [facility] [address] [place] [address] Urea nitrogen [Mass/Vol] 24 mg/dL High 9-20 [facility] Comment on above: Performed By: #### B NP3, CMP3, HEMDF #### [facility] [address] [place] [address] ALP [Catalytic activity/Vol] 98 U/L Normal 38-126 [facility] Comment on above: Performed By: #### B NP3, CMP3, HEMDF #### [facility] [address] [place] [address] Anion gap [Moles/Vol] 1 mmol/L Low 3-13 [facility] Comment on above: Performed By: #### B NP3, CMP3, HEMDF #### [facility] [address] [place] [address] AST [Catalytic activity/Vol] 53 U/L High 15-46 [facility] Comment on above: Performed By: #### B NP3, CMP3, HEMDF #### [facility] [address] [place] [address] Bilirubin [Mass/Vol] 0.9 mg/dL Normal 0.2-1.3 [facility] Comment on above: Performed By: #### B NP3, CMP3, HEMDF #### [facility] [address] [place] [address] CO2 [Moles/Vol] 30 mmol/L Normal 22-30 [facility] Comment on above: Performed By: #### B NP3, CMP3, HEMDF #### [facility] [address] [place] [address] Creatinine [Mass/Vol] 1.01 mg/dL Normal 0.52-1.25 [facility] Comment on above: Performed By: #### B NP3, CMP3, HEMDF #### [facility] [address] [place] [address] GFR/1.73 sq M.predicted among blacks MDRD (S/P/Bld) [Vol rate/Area] 62.4 mL/min/{1.73_m2} Normal >60 [facility] Comment on above: Performed By: #### B NP3, CMP3, HEMDF #### [facility] [address] [place] [address] GFR/1.73 sq M.predicted among non-blacks MDRD (S/P/Bld) [Vol rate/Area] 53.9 mL/min/{1.73_m2} Abnormal >60 [facility] Comment on above: Result Comment: KDIG [...] By: #### B NP3, CMP3, HEMDF #### [facility] [address] [place] [address] Protein [Mass/Vol] 6.1 g/dL Low 6.3-8.2 [facility] Comment on above: Performed By: #### B NP3, CMP3, HEMDF #### [facility] [address] [place] [address] Potassium [Moles/Vol] 3.7 mmol/L Normal 3.5-5.1 [facility] Comment on above: Performed By: #### B NP3, CMP3, HEMDF #### [facility] [address] [place] [address] Sodium [Moles/Vol] 134 mmol/L Low 135-145 [facility] Comment on above: Performed By: #### B NP3, CMP3, HEMDF #### [facility] [address] [place] [address] Albumin [Mass/Vol] 3.0 g/dL Low 3.5-5.0 [facility] Comment on above: Performed By: #### B NP3, CMP3, HEMDF #### [facility] [address] [place] [address] Chloride [Moles/Vol] 104 mmol/L Normal 98-107 [facility] Comment on above: Performed By: #### B NP3, CMP3, HEMDF #### [facility] [address] [place] [address] [facility] Metabolic Pane [facility] 12-18-2021 Albumin [Mass/Vol] 3.0 g/dL Low 3.5 [...] - 1.25 mg/dL [facility] EGFR IF NonAfrican Jamaican 53.9 mL/min Abnormal >60 [facility] Comment on [...] mg/dL High 9 - 20 mg/dL [facility] Glucose,Bedsideon 12-18-2021 Glucose [Mass/Vol] 155 mg/dL High 70-100 [facility] Comment on above: Result Comment: Test performed by glucose meter. Results may be 10%-15% lower than serum/plasma values. (CLIA ID [id number]) Performed By: #### B NP3, CMP3, HEMDF #### [facility] [employer] [facility] [address] [place] [address] Glucose [Mass/Vol] 122 mg/dL High 70-100 [facility] Comment on above: Result Comment: Test performed by glucose meter. Results may be 10%-15% lower than serum/plasma values. (CLIA ID [id number]) Performed By: #### B GLU #### [employer] [facility] [address] [place] [address] Glucose [Mass/Vol] 168 mg/dL High 70-100 [facility] Comment on above: Result Comment: Test performed by glucose meter. Results may be 10%-15% lower than serum/plasma values. (CLIA ID [id number]) Performed By: #### B GLU #### [employer] [facility] [address] [place] [address] Glucose [Mass/Vol] 124 mg/dL High 70-100 [facility] Comment on above: Result Comment: Test performed by glucose meter. Results may be 10%-15% lower than serum/plasma values. (CLIA ID [id number]) Performed By: #### B GLU #### [employer] [facility] [address] [place] [address] Hemogram w/ Autodiffon 12-18 Abs Baso Cnt 0.1 10*3/uL Normal 0.0-0.2 [facility] Comment on above: Performed By: #### B NP3, CMP3, HEMDF #### [facility] [address] [place] [address] Abs Neutrophile Cnt 3.8 10*3/uL Normal 1.8-7.0 [facility] Comment on above: Performed By: #### B NP3, CMP3, HEMDF #### [facility] [address] [place] [address] Basophils/100 WBC (Bld) 0.8 % Normal 0.0-2.0 [facility] Comment on above: Performed By: #### B NP3, CMP3, HEMDF #### [facility] [address] [place] [address] Eosinophils (Bld) [#/Vol] 0.3 10*3/uL Normal 0.0-0.5 [facility] Comment on above: Performed By: #### B NP3, CMP3, HEMDF #### [facility] [address] [place] [address] Eosinophils/100 WBC (Bld) 5.2 % Normal 1.0-6.0 [facility] Comment on above: Performed By: #### B NP3, CMP3, HEMDF #### [facility] [address] [place] [address] Erythrocyte distribution width (RBC) [Ratio] 13.0 % Normal 11.5-14.5 [facility] Comment on above: Performed By: #### B NP3, CMP3, HEMDF #### [facility] [address] [place] [address] Granulocytes/100 WBC (Bld) 61.3 % Normal 40.0-80.0 [facility] Comment on above: Performed By: #### B NP3, CMP3, HEMDF #### [facility] [address] [place] [address] Hematocrit (Bld) [Volume fraction] 30.8 % Low 35.0-47.0 [facility] Comment on above: Performed By: #### B NP3, CMP3, HEMDF #### [facility] [address] [place] [address] Hemoglobin (Bld) [Mass/Vol] 10.4 g/dL Low 11.7-16.0 [facility] Comment on above: Performed By: #### B NP3, CMP3, HEMDF #### [facility] [address] [place] [address] Lymphocytes (Bld) [#/Vol] 1.1 10*3/uL Normal 1.0-4.3 [facility] Comment on above: Performed By: #### B NP3, CMP3, HEMDF #### [facility] [address] [place] [address] Lymphocytes/100 WBC (Bld) 16.8 % Low 20.0-40.0 [facility] Comment on above: Performed By: #### B NP3, CMP3, HEMDF #### [facility] [address] [place] [address] MCH (RBC) [Entitic mass] 32.8 pg Normal 26.0-34.0 [facility] Comment on above: Performed By: #### B NP3, CMP3, HEMDF #### [facility] [address] [place] [address] MCHC 33.8 % Normal 32.0-36.0 [facility] Comment on above: Performed By: #### B NP3, CMP3, HEMDF #### [facility] [address] [place] [address] MCV (RBC) [Entitic vol] 97.1 fL Normal 79.0-98.0 [facility] Comment on above: Performed By: #### B NP3, CMP3, HEMDF #### [facility] [address] [place] [address] Monocytes (Bld) [#/Vol] 1.0 10*3/uL High 0.0-0.8 [facility] Comment on above: Performed By: #### B NP3, CMP3, HEMDF #### [facility] [address] [place] [address] Monocytes/100 WBC (Bld) 15.9 % High 2.0-10.0 [facility] Comment on above: Performed By: #### B NP3, CMP3, HEMDF #### [facility] [address] [place] [address] Platelet mean volume (Bld) [Entitic vol] 9.9 fL Normal 7.4-12.4 [facility] Comment on above: MPV is a calculated measurement using platelet volume ratio. Result Comment: MPV is a calculated measurement using platelet volume ratio. Performed By: #### B NP3, CMP3, HEMDF #### [facility] [address] [place] [address] Platelets (Bld) [#/Vol] 108 10*3/uL Low 140-440 [facility] Comment on above: Performed By: #### B NP3, CMP3, HEMDF #### [facility] [address] [place] [address] RBC (Bld) [#/Vol] 3.17 10*6/uL Low 3.80-5.20 [facility] Comment on above: Performed By: #### B NP3, CMP3, HEMDF #### [place] [address] [place] [address] WBC (Bld) [#/Vol] 6.3 10*3/uL Normal 3.6-10.7 [facility] Comment on above: Performed By: #### B NP3, CMP3, HEMDF #### [facility] [address] [facility] [place] [address] NT pro BNPon 12-18-2021 Natriuretic peptide B (Bld) [Mass/Vol] 7432 pg/mL High 0-450 [facility] Comment on above: Performed By: #### B NP3, CMP3, HEMDF #### [facility] [address] [place] [address] No Panel Informationon 12-18 Interpretation and review of laboratory results Abnormal [facility] Test Performed by [facility], [facility] [address] [facility] [place], [place] [id number] [place] [address] LAB [facility] POCT GlucoseOrdered By: Geovani Figueroa on 12-18-2021 Glucose [Mass/Vol] 155 mg/dL High 70 - 100 mg/dL [facility] Work Phone: Comment on above: Test performed by gl ucose meter. Results may be 10%-15% lower than serum/plasma values. (CLIA ID [id number]) Interpretation and review of laboratory results Abnormal [facility] Work Phone: [facility] Work Phone: POCT Glucoseon 12-18-2021 Test Performed by [facility], [address] LAB Glucose [Mass/Vol] 122 mg/dL High 70 - 100 mg/dL [facility] Work Phone: Comment on above: Test performed by gl ucose meter. Results may be 10%-15% lower than serum/plasma values. (CLIA ID [id number]) Interpretation and review of laboratory results Abnormal [facility] Work Phone: Test Performed by [facility], [address] LAB [facility] Work Phone: Test Performed by [facility] [employer] [facility], [address] LAB Glucose [Mass/Vol] 124 mg/dL High 70 - 100 mg/dL [facility] Work Phone: Comment on above: Test performed by gl ucose meter. Results may be 10%-15% lower than serum/plasma values. (CLIA ID [id number]) Interpretation and review of laboratory results Abnormal [facility] Work Phone: Test Performed by [facility] [employer] [facility], [address] LAB [facility] Work Phone: POCT GlucoseOrdered By: Mikhail Levine on 12-18-2021 Glucose [Mass/Vol] 168 mg/dL High 70 - 100 mg/dL [facility] Work Phone: Comment on above: Test performed by gl ucose meter. Results may be 10%-15% lower than serum/plasma values. (CLIA ID [id number]) Interpretation and review of laboratory results Abnormal [facility] Work Phone: [facility] Work Phone: CR Chest PA/LATon 12-17-2021 CR Chest PA/LAT Patient Name: MIKEL WINSTON Diagnostic Radiology ACCESSION EXAM DATE/TIME PROCEDURE ORDERING PROVIDER [id number] 12/17/2021 16:43 EDT CR Chest PA and LAT ARIEL SOLITARIO CPT code 89677 Reason For Exam (CR Chest PA and [...] Transcribed Date and Time: 12/17/2021 6:57 Normal [facility] Comp Panel with Mg Reflexon 12-17-2021 ALP [Catalytic activity/Vol] 101 U/L Normal 38-126 [facility] Comment on above: Performed By: #### B GLU #### [facility] [address] [place] [address] ALT [Catalytic activity/Vol] 12 U/L Normal 0-34 [facility] Comment on above: Result Comment: The ALT test is performed by an updated assay method. Please note that the reference intervals have been changed and are now sex specific. Performed By: #### B GLU #### [facility] [address] [place] [address] AST [Catalytic activity/Vol] 42 U/L Normal 15-46 [facility] Comment on above: Performed By: #### B GLU #### [facility] [address] [place] [address] Calcium [Mass/Vol] 8.9 mg/dL Normal 8.4-10.4 [facility] Comment on above: Performed By: #### B GLU #### [facility] [address] [place] [address] Glucose [Mass/Vol] 157 mg/dL High 70-100 [facility] Comment on above: Performed By: #### B GLU #### [facility] [address] [place] [address] Protein [Mass/Vol] 5.7 g/dL Low 6.3-8.2 [facility] Comment on above: Performed By: #### B GLU #### [facility] [address] [place] [address] Urea nitrogen [Mass/Vol] 28 mg/dL High 9-20 [facility] Comment on above: Performed By: #### B GLU #### [facility] [address] [place] [address] Anion gap [Moles/Vol] 3 mmol/L Normal 3-13 [facility] Comment on above: Performed By: #### B GLU #### [facility] [address] [place] [address] Bilirubin [Mass/Vol] 0.8 mg/dL Normal 0.2-1.3 [facility] Comment on above: Performed By: #### B GLU #### [facility] [address] [place] [address] CO2 [Moles/Vol] 28 mmol/L Normal 22-30 [facility] Comment on above: Performed By: #### B GLU #### [facility] [address] [place] [address] Creatinine [Mass/Vol] 1.06 mg/dL Normal 0.52-1.25 [facility] Comment on above: Performed By: #### B GLU #### [facility] [address] [place] [address] GFR/1.73 sq M.predicted among blacks MDRD (S/P/Bld) [Vol rate/Area] 58.9 mL/min/{1.73_m2} Abnormal >60 [facility] Comment on above: Performed By: #### B GLU #### [facility] [address] [place] [address] GFR/1.73 sq M.predicted among non-blacks MDRD (S/P/Bld) [Vol rate/Area] 50.8 mL/min/{1.73_m2} Abnormal >60 [facility] Comment on above: Result Comment: KDIG [...] secretion. Performed By: #### B GLU #### [facility] [address] [place] [address] Albumin [Mass/Vol] 2.9 g/dL Low 3.5-5.0 [facility] Comment on above: Performed By: #### B GLU #### [facility] [address] [place] [address] Chloride [Moles/Vol] 105 mmol/L Normal 98-107 [facility] Comment on above: Performed By: #### B GLU #### [facility] [address] [place] [address] Potassium [Moles/Vol] 3.4 mmol/L Low 3.5-5.1 [facility] Comment on above: Performed By: #### B GLU #### [facility] [address] [place] [address] Sodium [Moles/Vol] 137 mmol/L Normal 135-145 [facility] Comment on above: Performed By: #### B GLU #### [facility] [address] [place] [address] Comprehensive Metabolic Pane l w/ Reflex to [...] - 1.25 mg/dL [facility] EGFR IF NonAfrican Jamaican 50.8 mL/min Abnormal >60 [facility] Comment on [...] 157 mg/dL High 70 - 100 mg/dL [facility] Interpretation and review of laboratory results Abnormal [facility] Potassium [Moles/Vol] 3.4 mmol/L Low 3.5 - 5.1 mmol/L [facility] Sodium [Moles/Vol] 137 mmol/L 135 - 145 mmol/L [facility] Urea nitrogen (BldV) [Mass/Vol] 28 mg/dL High 9 - 20 mg/dL [facility] Test Performed by [facility], [address] [place], [place] [id number] [place] [address] LAB [facility] Glucose,Bedsideon 12-17-2021 Glucose [Mass/Vol] 170 mg/dL High 70-100 [facility] Comment on above: Result Comment: Test performed by glucose meter. Results may be 10%-15% lower than serum/plasma values. (CLIA ID [id number]) Performed By: #### B NP3, CMP3, HEMDF #### [facility] [address] [place] [address] Glucose [Mass/Vol] 128 mg/dL High 70-100 [facility] Comment on above: Result Comment: Test performed by glucose meter. Results may be 10%-15% lower than serum/plasma values. (CLIA ID [id number]) Performed By: #### B GLU #### [facility] [address] [place] [address] Glucose [Mass/Vol] 149 mg/dL High 70-100 [facility] Comment on above: Result Comment: Test performed by glucose meter. Results may be 10%-15% lower than serum/plasma values. (CLIA ID [id number]) Performed By: #### B NP3, CMP3, HEMDF #### [facility] [address] [place] [address] Glucose [Mass/Vol] 159 mg/dL High 70-100 [facility] Comment on above: Result Comment: Test performed by glucose meter. Results may be 10%-15% lower than serum/plasma values. (CLIA ID [id number]) Performed By: #### B GLU #### [facility] [address] [place] [address] Magnesiumon 12-17-2021 Magnesium [Mass/Vol] 1.5 mg/dL Low 1.6-2.3 [facility] Comment on above: Performed By: #### B GLU #### [facility] [address] [place] [address] Interpretation and review of laboratory results Abnormal [facility] Magnesium [Mass/Vol] 1.5 mg/dL Low 1.6 - 2 .3 mg/dL [facility] Test Performed by [facility], [facility] [address] LAB [facility] POCT Glucoseon 12-17-2021 Glucose [Mass/Vol] 170 mg/dL High 70 - 100 mg/dL [facility] Work Phone: Comment on above: Test performed by gl ucose meter. Results may be 10%-15% lower than serum/plasma values. (CLIA ID [id number]) Interpretation and review of laboratory results Abnormal [facility] Work Phone: Test Performed by [facility], [facility] [address] LAB [facility] Work Phone: Test Performed by [facility], [facility] [address] LAB Glucose [Mass/Vol] 149 mg/dL High 70 - 100 mg/dL [facility] Work Phone: Comment on above: Test performed by gl ucose meter. Results may be 10%-15% lower than serum/plasma values. (CLIA ID [id number]) Interpretation and review of laboratory results Abnormal [facility] Work Phone: Test Performed by [facility], [facility] [address] LAB [facility] Work Phone: Glucose [Mass/Vol] 159 mg/dL High 70 - 100 mg/dL [facility] Work Phone: Comment on above: Test performed by gl ucose meter. Results may be 10%-15% lower than serum/plasma values. (CLIA ID [id number]) Interpretation and review of laboratory results Abnormal [facility] Work Phone: Test Performed by [facility], [address] [place], [place] [id number] [place] [address] LAB [facility] Work Phone: POCT GlucoseOrdered By: Jenny Velásquez on 12-17-2021 Glucose [Mass/Vol] 128 mg/dL High 70 - 100 mg/dL [facility] Work Phone: Comment on above: Test performed by [employer] ucose meter. Results may be 10%-15% lower than serum/plasma values. (CLIA ID [id number]) Interpretation and review of laboratory results Abnormal [facility] Work Phone: [facility] Work Phone: Vancomycin Level, Troughon 0 12-17-2021 Interpretation and review of laboratory results Abnormal [facility] Vancomycin Tr 11.4 ug/mL Low 15.0 - 20.0 ug/mL [facility] Comment on above: . Test Performed by [facility] [employer], [address] [place], [place] [id number] [place] [address] LAB [facility] Vancomycin Troughon 12-18-19 Vancomycin Trough 11.4 ug/mL Low 15.0-20.0 [facility] Comment on above: Result Comment: . Performed By: #### B NP3, CMP3, HEMDF #### [facility] [address] [place] [address] XR CHEST (2 VW)on 12-17-2021 Patient Name: MIKEL WINSTON Diagnostic Radiology ACCESSION EXAM DATE/TIME PROCEDURE ORDERING PROVIDER [id number] 12/17/2021 16:43 EDT CR Chest PA & LAT ARIEL SOLITARIO CPT code 19782 Reason For Exam (CR Chest PA & [...] NELSON Transcribed Date and Time: 12/17/2021 6:57 [facility] Winston Christian. MD Nahid - 12/17/2021 Patient Name: MIKEL WINSTON Diagnostic Radiology ACCESSION EXAM DATE/TIME PROCEDURE ORDERING PROVIDER [id number] 12/17/2021 16:43 EDT CR Chest PA & LAT ALTAF ARIEL CPT code 87758 Reason For Exam (CR Chest PA & [...] NELSON Transcribed Date and Time: 12/17/2021 6:57 [facility] Work Phone: Radiology Study observation (narrative) [facility] Work Phone: XR CHEST (2 VW)Ordered By: Winston Berger on 12-17-2021 [facility] Work Phone: CULTURE BLOODon 12-16-2021 Microscopic examination of blood, culture 1 Organism Enterococcus faecalis Isolated: For identification and/or sensitivity, refer to culture collected on: 12/13/2021 at 1518 ([id number]). Normal [facility] Comment on above: Performed By: #### B NP3, CMP3, HEMDF #### [facility] [address] [place] [address] CULTURE BLOOD (Two)on 2021 Microscopic examination of blood, culture CULTURE BLOOD (Two) --> Status: F Enterococcus faecalis DETECTED; Leticia/B Not Detected. Presumptive identification performed using [employer] PCR methodology; confirmatory identification to follow. _ The [employer] BCID2 PCR Panel can detect the following [...] VIM, and mcr-1. Presumptive identification performed using [employer] PCR methodology; confirmatory identification to follow. _ The [employer] BCID2 PCR Panel can detect the following [...] R Streptomycin High Level synergy(CHRISTA)SYN-R R Normal [facility] Comment on above: Performed By: #### B NP3, CMP3, HEMDF #### [facility] [address] [place] [address] Comp Panel with Mg Reflexon 12-16-2021 Calcium [Mass/Vol] 8.5 mg/dL Normal 8.4-10.4 [facility] Comment on above: Performed By: #### B GLU #### [facility] [address] [place] [address] ALP [Catalytic activity/Vol] 73 U/L Normal 38-126 [facility] Comment on above: Performed By: #### B GLU #### [facility] [address] [place] [address] ALT [Catalytic activity/Vol] 14 U/L Normal 0-34 [facility] Comment on above: Result Comment: The ALT test is performed by an updated assay method. Please note that the reference intervals have been changed and are now sex specific. Performed By: #### B GLU #### [facility] [address] [place] [address] Anion gap [Moles/Vol] 3 mmol/L Normal 3-13 [facility] Comment on above: Performed By: #### B GLU #### [facility] [address] [place] [address] AST [Catalytic activity/Vol] 42 U/L Normal 15-46 [facility] Comment on above: Performed By: #### B GLU #### [facility] [address] [place] [address] Bilirubin [Mass/Vol] 1.0 mg/dL Normal 0.2-1.3 [facility] Comment on above: Performed By: #### B GLU #### [facility] [address] [place] [address] CO2 [Moles/Vol] 27 mmol/L Normal 22-30 [facility] Comment on above: Performed By: #### B GLU #### [facility] [address] [place] [address] Glucose [Mass/Vol] 140 mg/dL High 70-100 [facility] Comment on above: Performed By: #### B GLU #### [facility] [address] [place] [address] Protein [Mass/Vol] 5.5 g/dL Low 6.3-8.2 [facility] Comment on above: Performed By: #### B GLU #### [facility] [address] [place] [address] Urea nitrogen [Mass/Vol] 27 mg/dL High 9-20 [facility] Comment on above: Performed By: #### B GLU #### [facility] [address] [place] [address] Creatinine [Mass/Vol] 1.28 mg/dL High 0.52-1.25 [facility] Comment on above: Performed By: #### B GLU #### [facility] [address] [place] [address] GFR/1.73 sq M.predicted among blacks MDRD (S/P/Bld) [Vol rate/Area] 46.9 mL/min/{1.73_m2} Abnormal >60 [facility] Comment on above: Performed By: #### B GLU #### [facility] [address] [place] [address] GFR/1.73 sq M.predicted among non-blacks MDRD (S/P/Bld) [Vol rate/Area] 40.4 mL/min/{1.73_m2} Abnormal >60 [facility] Comment on above: Result Comment: KDIG [...] secretion. Performed By: #### B GLU #### [facility] [address] [place] [address] Albumin [Mass/Vol] 2.7 g/dL Low 3.5-5.0 [facility] Comment on above: Performed By: #### B GLU #### [facility] [address] [place] [address] Chloride [Moles/Vol] 101 mmol/L Normal 98-107 [facility] Comment on above: Performed By: #### B GLU #### [facility] [address] [place] [address] Potassium [Moles/Vol] 3.0 mmol/L Low 3.5-5.1 [facility] Comment on above: Performed By: #### B GLU #### [facility] [address] [place] [address] Sodium [Moles/Vol] 131 mmol/L Low 135-145 [facility] Comment on above: Performed By: #### B GLU #### [facility] [address] [place] [address] Comprehensive Metabolic Pane l w/ Reflex to MGon 12-16-2021 Albumin [Mass/Vol] 2.7 g/dL Low 3.5 - 5.0 g/dL [facility] ALP (Bld) [Catalytic activity/Vol] 73 U/L 38 - 126 U/L [facility] ALT [Catalytic activity/Vol] 14 U/L 0 - 34 U/L [facility] Comment [...] - 1.25 mg/dL [facility] EGFR IF NonAfrican Jamaican 40.4 mL/min Abnormal >60 [facility] Comment on [...] [Vol rate/Area] 46.9 mL/min/{1.73_m2} Abnormal >60 [facility] Glucose [Mass/Vol] 140 mg/dL High 70 - 100 mg/dL [facility] Interpretation and review of laboratory results Abnormal [facility] Potassium [Moles/Vol] 3.0 mmol/L Low 3.5 - 5.1 mmol/L [facility] Sodium [Moles/Vol] 131 mmol/L Low 135 - 145 mmol/L [facility] Urea nitrogen (BldV) [Mass/Vol] 27 mg/dL High 9 - 20 mg/dL [facility] Test Performed by [facility], [address] [facility] [place], [place] [id number] [place] [address] LAB [facility] Culture, Bloodon 12-16-2021 Blood Culture, Routine Isolated: For identification and/or sensitivity, refer to culture collected on: 12/13/2021 at 1518 ([id number]). [facility] Culture, Blood 2on Blood Culture, Routine Enterococcus faecalis DETECTED; Leticia/B Not Detected. Presumptive identification performed using [employer] PCR methodology; confirmatory identification to follow. _ The [employer] BCID2 PCR Panel can detect the following [...] KPC, NDM, OXA-48-like, VIM, and mcr-1. Abnormal [facility] Blood Culture, Routine Isolated: PRINCE MMA Glucose,Bedsideon 12-16-2021 Glucose [Mass/Vol] 208 mg/dL High 70-100 [facility] Comment on above: Result Comment: Test performed by glucose meter. Results may be 10%-15% lower than serum/plasma values. (CLIA ID [id number]) Performed By: #### B NP3, CMP3, HEMDF #### [facility] [address] [place] [address] Glucose [Mass/Vol] 153 mg/dL High 70-100 [facility] Comment on above: Result Comment: Test performed by glucose meter. Results may be 10%-15% lower than serum/plasma values. (CLIA ID [id number]) Performed By: #### B NP3, CMP3, HEMDF #### [facility] [address] [place] [address] Glucose [Mass/Vol] 169 mg/dL High 70-100 [facility] Comment on above: Result Comment: Test performed by glucose meter. Results may be 10%-15% lower than serum/plasma values. (CLIA ID [id number]) Performed By: #### B GLU #### [facility] [address] [place] [address] Glucose [Mass/Vol] 150 mg/dL High 70-100 [facility] Comment on above: Result Comment: Test performed by glucose meter. Results may be 10%-15% lower than serum/plasma values. (CLIA ID [id number]) Performed By: #### B NP3, CMP3, HEMDF #### [facility] [address] [place] [address] Magnesiumon 12-16-2021 Magnesium [Mass/Vol] 1.3 mg/dL Low 1.6-2.3 [facility] Comment on above: Performed By: #### B GLU #### [facility] [address] [place] [address] Interpretation and review of laboratory results Abnormal [facility] Magnesium [Mass/Vol] 1.3 mg/dL Low 1.6 - 2 .3 mg/dL [facility] Test Performed by [facility], [address] [place], [place] [address] [facility] LAB [facility] No Panel Informationon 12-16 Blood Culture, Routine Enterococcus faecalis Abnormal [facility] Interpretation and review of laboratory results Abnormal [facility] Test Performed by [facility], [address] [place] [address] [facility] LAB [facility] POCT GlucoseOrdered By: Andie Cornell on 12-16-2021 Glucose [Mass/Vol] 208 mg/dL High 70 - 100 mg/dL [facility] Comment on above: Test performed by gl ucose meter. Results may be 10%-15% lower than serum/plasma values. (CLIA ID [id number]) Interpretation and review of laboratory results Abnormal [facility] POCT Glucoseon 12-16-2021 Test Performed by [facility], [address] LAB Glucose [Mass/Vol] 153 mg/dL High 70 - 100 mg/dL [facility] Work Phone: Comment on above: Test performed by gl ucose meter. Results may be 10%-15% lower than serum/plasma values. (CLIA ID [id number]) Interpretation and review of laboratory results Abnormal [facility] Work Phone: Test Performed by [facility], [address] LAB [facility] Work Phone: Test Performed by [facility], [address] LAB Glucose [Mass/Vol] 150 mg/dL High 70 - 100 mg/dL [facility] Work Phone: Comment on above: Test performed by gl ucose meter. Results may be 10%-15% lower than serum/plasma values. (CLIA ID [id number]) Interpretation and review of laboratory results Abnormal [facility] Work Phone: Test Performed by [facility], [address] [place], [place] [address] [place] [address] LAB [facility] Work Phone: POCT GlucoseOrdered By: Asa Villegas on 12-16-2021 Glucose [Mass/Vol] 169 mg/dL High 70 - 100 mg/dL [facility] Work Phone: Comment on above: Test performed by [employer] ucose meter. Results may be 10%-15% lower than serum/plasma values. (CLIA ID [id number]) Interpretation and review of laboratory results Abnormal [facility] Work Phone: [facility] Work Phone: CBC with Auto Differentialon 12-15-2021 [...] [Ratio] 13.7 % 11.5 - 14.5 % [facility] Platelet mean volume (Bld) [Entitic vol] 9.8 fL 7.4 - 12.4 fL [facility] Comment on above: MPV is a calculated measurement using platelet volume ratio. Platelets (Bld) [#/Vol] 75 10*3/uL Low 140 - 440 10*3/uL [facility] RBC (Bld) [#/Vol] 3.32 10*6/uL Low 3.80 - 5.2 0 10*6/uL [facility] WBC (Bld) [#/Vol] 10.1 10*3/uL 3.6 - 10.7 10*3/uL [facility] Test Performed by [facility], [address] [place] [address] LAB [facility] CULTURE URINEon 12-15-2021 CULTURE URINE 1 Organism [...] 1 S Amikacin(CHRISTA) <= 2 S Normal [facility] Comment on above: Performed By: #### B GLU #### [facility] [address] [place] [address] Comp Panel with Mg Reflexon 12-15-2021 ALP [Catalytic activity/Vol] 68 U/L Normal 38-126 [facility] Comment on above: Performed By: #### B GLU #### [facility] [address] [place] [address] ALT [Catalytic activity/Vol] 25 U/L Normal 0-34 [facility] Comment on above: Result Comment: The ALT test is performed by an updated assay method. Please note that the reference intervals have been changed and are now sex specific. Performed By: #### B GLU #### [facility] [address] [place] [address] Calcium [Mass/Vol] 8.7 mg/dL Normal 8.4-10.4 [facility] Comment on above: Performed By: #### B GLU #### [facility] [address] [place] [address] Glucose [Mass/Vol] 212 mg/dL High 70-100 [facility] Comment on above: Performed By: #### B GLU #### [facility] [address] [place] [address] Anion gap [Moles/Vol] 5 mmol/L Normal 3-13 [facility] Comment on above: Performed By: #### B GLU #### [facility] [address] [place] [address] AST [Catalytic activity/Vol] 49 U/L High 15-46 [facility] Comment on above: Performed By: #### B GLU #### [facility] [address] [place] [address] Bilirubin [Mass/Vol] 1.2 mg/dL Normal 0.2-1.3 [facility] Comment on above: Performed By: #### B GLU #### [facility] [address] [place] [address] CO2 [Moles/Vol] 24 mmol/L Normal 22-30 [facility] Comment on above: Performed By: #### B GLU #### [facility] [address] [place] [address] Creatinine [Mass/Vol] 1.20 mg/dL Normal 0.52-1.25 [facility] Comment on above: Performed By: #### B GLU #### [facility] [address] [place] [address] GFR/1.73 sq M.predicted among blacks MDRD (S/P/Bld) [Vol rate/Area] 50.7 mL/min/{1.73_m2} Abnormal >60 [facility] Comment on above: Performed By: #### B GLU #### [facility] [address] [place] [address] GFR/1.73 sq M.predicted among non-blacks MDRD (S/P/Bld) [Vol rate/Area] 43.7 mL/min/{1.73_m2} Abnormal >60 [facility] Comment on above: Result Comment: KDIG [...] secretion. Performed By: #### B GLU #### [facility] [address] [place] [address] Protein [Mass/Vol] 5.9 g/dL Low 6.3-8.2 [facility] Comment on above: Performed By: #### B GLU #### [facility] [address] [place] [address] Urea nitrogen [Mass/Vol] 25 mg/dL High 9-20 [facility] Comment on above: Performed By: #### B GLU #### [facility] [address] [place] [address] Potassium [Moles/Vol] 3.2 mmol/L Low 3.5-5.1 [facility] Comment on above: Performed By: #### B GLU #### [facility] [address] [place] [address] Albumin [Mass/Vol] 2.9 g/dL Low 3.5-5.0 [facility] Comment on above: Performed By: #### B GLU #### [facility] [address] [place] [address] Chloride [Moles/Vol] 103 mmol/L Normal 98-107 [facility] Comment on above: Performed By: #### B GLU #### [facility] [address] [place] [address] Sodium [Moles/Vol] 133 mmol/L Low 135-145 [facility] Comment on above: Performed By: #### B GLU #### [facility] [address] [place] [address] Comprehensive Metabolic Pane l w/ Reflex to MGon 12-15-2021 Albumin [Mass/Vol] 2.9 g/dL Low 3.5 - 5.0 g/dL [facility] ALP (Bld) [Catalytic activity/Vol] 68 U/L 38 - 126 U/L [facility] ALT [Catalytic activity/Vol] 25 U/L 0 - 34 U/L [facility] Comment on above: The ALT test is [...] - 1.25 mg/dL [facility] EGFR IF NonAfrican Jamaican 43.7 mL/min Abnormal >60 [facility] Comment on [...] - 20 mg/dL [facility] Test Performed by [facility], [address] [place], [place] [address] [facility] LAB [facility] Culture, Urineon 12-15-2021 Bacteria identified Cx Nom (U) Escherichia coli Abnormal [facility] Bacteria identified Cx Nom (U) >100,000 CFU/ml [facility] Interpretation and review of laboratory results Abnormal [facility] Test Performed by [facility], [address] [place] [address] [facility] LAB [facility] ECHO Complete 2D W Doppler W Coloron 12-15-2021 TRANSTHORACIC ECHOCARDIOGRAM PATIENT: Mikel Winston STUDY DATE: 12/15/2021 : 1945 AGE: 76 HT/WT: 165.1 cm (65 92.1 kg in) (202.6 lb) GENDER: F BP: 140 / 64 LOCATION: [facility] PATIENT Inpatient [facility] STATUS: *ORDERING PHYSICIAN: * Terence Gonzalez *READING PHYSICIAN: * Aquilino *[employer] INSPECTOR: * Florencia Workman RDCS, MD, [facility] AE, RVT, [place] INDICATIONS: CHF, [...] ED 2.5 cm/m^2 (more content not included)... [facility] Aquilino Don MD - 12/15/2021 TRANSTHORACIC ECHOCARDIOGRAM PATIENT: Mikel Winston STUDY DATE: 12/15/2021 : 1945 AGE: 76 HT/WT: 165.1 cm (65 92.1 kg in) (202.6 lb) GENDER: F BP: 140 / 64 LOCATION: [facility] PATIENT Inpatient [facility] STATUS: *ORDERING PHYSICIAN: * Terence Gonzalez *READING PHYSICIAN: * Aquilino *[employer] INSPECTOR: * Florencia Workman RDCS, MD, [facility] AE, RVT, VT INDICATIONS: CHF, [...] volume, 2-p 3 (more content not included)... [address] Work Phone: ECHO Complete 2D W Doppler W ColorOrdered By: Aquilino Don on 12-15-[address] Work Phone: Echo Complete w/wo Contrasto n 12-15-2021 Echo Complete w/wo Contrast Patient Name: MIKEL WINSTON Ultrasound ACCESSION EXAM DATE/TIME PROCEDURE ORDERING PROVIDER [id number] 12/15/2021 13:24 EDT Echo Complete w/wo MD LISA, TERENCE Contrast Reason For Exam (Echo Complete w/wo Contrast) chf Report TRANSTHORACIC ECHOCARDIOGRAM PATIENT: Mikel Winston STUDY DATE: 12/15/2021 : 1945 AGE: 76 HT/WT: 165.1 cm (65 92.1 kg in) (202.6 lb) GENDER: F BP: 140 / 64 LOCATION: [facility] PATIENT Inpatient [facility] STATUS: *ORDERING PHYSICIAN: * Terence Gonzalez *READING PHYSICIAN: * Aquilino *[employer] INSPECTOR: * Nova Melara RDCS, MD Florencia, [facility] AE, RVT, VT INDICATIONS: CHF, [...] Stroke volume/bsa, (more content not included)... Normal Zero Locus Glucose,Bedsideon 12-15-2021 Glucose [Mass/Vol] 215 mg/dL High 70-100 [facility] [employer] Comment on above: Result Comment: Test performed by glucose meter. Results may be 10%-15% lower than serum/plasma values. (CLIA ID [id number]) Performed By: #### B NP3, CMP3, HEMDF #### [employer] [address] [place] [address] Glucose [Mass/Vol] 212 mg/dL High 70-100 [facility] [employer] Comment on above: Result Comment: Test performed by glucose meter. Results may be 10%-15% lower than serum/plasma values. (CLIA ID [id number]) Performed By: #### B NP3, CMP3, HEMDF #### [facility] [address] [place] [address] Glucose [Mass/Vol] 185 mg/dL High 70-100 [facility] Comment on above: Result Comment: Test performed by glucose meter. Results may be 10%-15% lower than serum/plasma values. (CLIA ID [id number]) Performed By: #### B GLU #### [facility] [address] [place] [address] Glucose [Mass/Vol] 226 mg/dL High 70-100 [facility] Comment on above: Result Comment: Test performed by glucose meter. Results may be 10%-15% lower than serum/plasma values. (CLIA ID [id number]) Performed By: #### B NP3, CMP3, HEMDF #### [facility] [address] [place] [address] Hemogram w/ Autodiffon 12-15 Abs Baso Cnt 0.0 10*3/uL Normal 0.0-0.2 [facility] Comment on above: Performed By: #### B GLU #### [facility] [address] [place] [address] Abs Neutrophile Cnt 8.3 10*3/uL High 1.8-7.0 [facility] Comment on above: Performed By: #### B GLU #### [facility] [address] [place] [address] Basophils/100 WBC (Bld) 0.3 % Normal 0.0-2.0 [facility] Comment on above: Performed By: #### B GLU #### [facility] [address] [place] [address] Eosinophils (Bld) [#/Vol] 0.0 10*3/uL Normal 0.0-0.5 [facility] Comment on above: Performed By: #### B GLU #### [facility] [address] [place] [address] Eosinophils/100 WBC (Bld) 0.1 % Low 1.0-6.0 [facility] Comment on above: Performed By: #### B GLU #### [place] [address] [place] [address] Erythrocyte distribution width (RBC) [Ratio] 13.7 % Normal 11.5-14.5 [facility] Comment on above: Performed By: #### B GLU #### [facility] [address] [place] [address] Granulocytes/100 WBC (Bld) 82.6 % High 40.0-80.0 [facility] Comment on above: Performed By: #### B GLU #### [facility] [address] [place] [address] Hematocrit (Bld) [Volume fraction] 32.0 % Low 35.0-47.0 [facility] Comment on above: Performed By: #### B GLU #### [facility] [address] [place] [address] Hemoglobin (Bld) [Mass/Vol] 10.8 g/dL Low 11.7-16.0 [facility] Comment on above: Performed By: #### B GLU #### [facility] [address] [place] [address] Lymphocytes (Bld) [#/Vol] 0.7 10*3/uL Low 1.0-4.3 [facility] Comment on above: Performed By: #### B GLU #### [facility] [address] [place] [address] Lymphocytes/100 WBC (Bld) 7.3 % Low 20.0-40.0 [facility] Comment on above: Performed By: #### B GLU #### [facility] [address] [place] [address] MCH (RBC) [Entitic mass] 32.6 pg Normal 26.0-34.0 [facility] Comment on above: Performed By: #### B GLU #### [facility] [address] [place] [address] MCHC 33.8 % Normal 32.0-36.0 [facility] Comment on above: Performed By: #### B GLU #### [facility] [address] [place] [address] MCV (RBC) [Entitic vol] 96.4 fL Normal 79.0-98.0 [facility] Comment on above: Performed By: #### B GLU #### [facility] [address] [place] [address] Monocytes (Bld) [#/Vol] 1.0 10*3/uL High 0.0-0.8 [facility] Comment on above: Performed By: #### B GLU #### [facility] [address] [place] [address] Monocytes/100 WBC (Bld) 9.7 % Normal 2.0-10.0 [facility] Comment on above: Performed By: #### B GLU #### [facility] [address] [place] [address] Platelet mean volume (Bld) [Entitic vol] 9.8 fL Normal 7.4-12.4 [facility] Comment on above: Result Comment: MPV is a calculated measurement using platelet volume ratio. Performed By: #### B GLU #### [facility] [address] [place] [address] Platelets (Bld) [#/Vol] 75 10*3/uL Low 140-440 [facility] Comment on above: Performed By: #### B GLU #### [facility] [address] [place] [address] RBC (Bld) [#/Vol] 3.32 10*6/uL Low 3.80-5.20 [facility] Comment on above: Performed By: #### B GLU #### [facility] [address] [place] [address] WBC (Bld) [#/Vol] 10.1 10*3/uL Normal 3.6-10.7 [facility] Comment on above: Performed By: #### B GLU #### [facility] [address] [place] [address] Magnesiumon 12-15-2021 Magnesium [Mass/Vol] 1.2 mg/dL Low 1.6-2.3 [facility] Comment on above: Performed By: #### B GLU #### [facility] [address] [place] [address] Interpretation and review of laboratory results Abnormal [facility] Magnesium [Mass/Vol] 1.2 mg/dL Low 1.6 - 2 .3 mg/dL [facility] Test Performed by [facility], [address] LAB [facility] POCT GlucoseOrdered By: Zofia Catherine on 12-15-2021 Glucose [Mass/Vol] 215 mg/dL High 70 - 100 mg/dL [facility] Work Phone: Comment on above: Test performed by gl ucose meter. Results may be 10%-15% lower than serum/plasma values. (CLIA ID [id number]) Interpretation and review of laboratory results Abnormal [facility] Work Phone: [facility] Work Phone: POCT Glucoseon 12-15-2021 Test Performed by [facility], [address] LAB Glucose [Mass/Vol] 212 mg/dL High 70 - 100 mg/dL [facility] Comment on above: Test performed by gl ucose meter. Results may be 10%-15% lower than serum/plasma values. (CLIA ID [id number]) Interpretation and review of laboratory results Abnormal [facility] Test Performed by [facility], [address] LAB [facility] Test Performed by [facility], [address] LAB Glucose [Mass/Vol] 226 mg/dL High 70 - 100 mg/dL [facility] Comment on above: Test performed by gl ucose meter. Results may be 10%-15% lower than serum/plasma values. (CLIA ID [id number]) Interpretation and review of laboratory results Abnormal [facility] Test Performed by [facility], [address] LAB [facility] POCT GlucoseOrdered By: Cara Garcia on 12-15-2021 Glucose [Mass/Vol] 185 mg/dL High 70 - 100 mg/dL [facility] Work Phone: Comment on above: Test performed by gl ucose meter. Results may be 10%-15% lower than serum/plasma values. (CLIA ID [id number]) Interpretation and review of laboratory results Abnormal [facility] Work Phone: [facility] Work Phone: Procalcitoninon 12-15-2021 Procalcitonin 0.55 ng/mL High 0.00-0.09 [facility] Comment on above: Performed By: #### B GLU #### [facility] [address] [place] [address] Interpretation See Below [facility] Comment on above: PCT <0.50 = Low risk of severe sepsis and/or septic shock. PCT >2.00 = High risk of severe sepsis and/or septic shock. Interpretation and review of laboratory results Abnormal [facility] Procalcitonin 0.55 ng/mL High 0.00 - 0.09 ng/mL [facility] Test Performed by [facility], [address] [place] [id number] [place] [address] LAB [facility] Add On Lab Teston 12-14-2021 Add On Accepted [facility] Comment on above: Specimen available & acceptable for analysis. Add on test from HISon 12-14 Add on test from HIS Accepted Normal [facility] Comment on above: Result Comment: Spec imen available & acceptable for analysis. Performed By: #### B NP3, CMP3, HEMDF #### [facility] [address] [place] [address] Brain Natriuretic Peptideon 12-14-2021 Interpretation and review of laboratory results Abnormal [facility] Natriuretic peptide B (Bld) [Mass/Vol] [address]5031 pg/mL High 0 - 450 pg/mL [facility] Test Performed by [facility] [employer] [facility], [address] [place], [place] [address] [facility] LAB [facility] CBC with Auto Differentialon 12-14-2021 Absolute Baso [...] - 10.7 10*3/uL [facility] Test Performed by [facility] [employer] [facility], [address] [place], [place] [id number] [place] [address] LAB [facility] Absolute Baso # 0.0 10*3/uL [...] 10.6 g/dL Low 11.7 - 16.0 g/dL [facility] [...] Low 3.80 - 5.2 0 10*6/uL [facility] WBC (Bld) [#/Vol] 9.4 10*3/uL 3.6 - 10.7 10*3/uL [facility] [facility] Chest Portableon 12-15-19 CR Chest Portable Patient Name: MIKEL WINSTON Diagnostic Radiology ACCESSION EXAM DATE/TIME PROCEDURE ORDERING PROVIDER [id number] 12/14/2021 18:24 EDT CR Chest Portable MD LISA, TERENCE CPT code 43205 Reason For Exam (CR Chest Portable) SOB [...] Transcribed Date and Time: 12/14/2021 7:10 Normal [facility] Comp Metabolic Panelon 12-14 ALP [Catalytic activity/Vol] 94 U/L Normal 38-126 [facility] Comment on above: Performed By: #### B GLU #### [facility] [address] [place] [address] ALT [Catalytic activity/Vol] 32 U/L Normal 0-34 [facility] Comment on above: Result Comment: The ALT test is performed by an updated assay method. Please note that the reference intervals have been changed and are now sex specific. Performed By: #### B GLU #### [facility] [address] [place] [address] AST [Catalytic activity/Vol] 63 U/L High 15-46 [facility] Comment on above: Performed By: #### B GLU #### [facility] [address] [place] [address] Bilirubin [Mass/Vol] 1.4 mg/dL High 0.2-1.3 [facility] Comment on above: Performed By: #### B GLU #### [facility] [address] [place] [address] Calcium [Mass/Vol] 9.2 mg/dL Normal 8.4-10.4 [facility] Comment on above: Performed By: #### B GLU #### [facility] [address] [place] [address] Glucose [Mass/Vol] 211 mg/dL High 70-100 [facility] Comment on above: Performed By: #### B GLU #### [facility] [address] [place] [address] Protein [Mass/Vol] 7.0 g/dL Normal 6.3-8.2 [facility] Comment on above: Performed By: #### B GLU #### [facility] [address] [place] [address] Urea nitrogen [Mass/Vol] 24 mg/dL High 9-20 [facility] Comment on above: Performed By: #### B GLU #### [facility] [address] [place] [address] Anion gap [Moles/Vol] 7 mmol/L Normal 3-13 [facility] Comment on above: Performed By: #### B GLU #### [facility] [address] [place] [address] CO2 [Moles/Vol] 21 mmol/L Low 22-30 [facility] Comment on above: Performed By: #### B GLU #### [facility] [address] [place] [address] Creatinine [Mass/Vol] 1.03 mg/dL Normal 0.52-1.25 [facility] Comment on above: Performed By: #### B GLU #### [facility] [address] [place] [address] GFR/1.73 sq M.predicted among blacks MDRD (S/P/Bld) [Vol rate/Area] 61.0 mL/min/{1.73_m2} Normal >60 [facility] Comment on above: Performed By: #### B GLU #### [facility] [address] [place] [address] GFR/1.73 sq M.predicted among non-blacks MDRD (S/P/Bld) [Vol rate/Area] 52.6 mL/min/{1.73_m2} Abnormal >60 [facility] Comment on above: Result Comment: KDIG [...] secretion. Performed By: #### B GLU #### [facility] [address] [place] [address] Albumin [Mass/Vol] 3.5 g/dL Normal 3.5-5.0 [facility] Comment on above: Performed By: #### B GLU #### [facility] [address] [place] [address] Potassium [Moles/Vol] 3.8 mmol/L Normal 3.5-5.1 [facility] Comment on above: Performed By: #### B GLU #### [facility] [address] [place] [address] Sodium [Moles/Vol] 136 mmol/L Normal 135-145 [facility] Comment on above: Performed By: #### B GLU #### [facility] [address] [place] [address] Chloride [Moles/Vol] 108 mmol/L High 98-107 [facility] Comment on above: Performed By: #### B GLU #### [facility] [address] [place] [address] Comp Panel with Mg Reflexon 12-14-2021 ALP [Catalytic activity/Vol] 56 U/L Normal 38-126 [facility] Comment on above: Order Comment: SLIGH T HEMOLYSIS Performed By: #### B GLU #### [facility] [address] [place] [address] ALT [Catalytic activity/Vol] 26 U/L Normal 0-34 [facility] Comment on above: Order Comment: SLIGH T HEMOLYSIS Result Comment: The ALT test is performed by an updated assay method. Please note that the reference intervals have been changed and are now sex specific. Performed By: #### B GLU #### [facility] [address] [place] [address] Calcium [Mass/Vol] 9.3 mg/dL Normal 8.4-10.4 [facility] Comment on above: Order Comment: SLIGH T HEMOLYSIS Performed By: #### B GLU #### [facility] [address] [place] [address] Glucose [Mass/Vol] 157 mg/dL High 70-100 [facility] Comment on above: Order Comment: SLIGH T HEMOLYSIS Performed By: #### B GLU #### [facility] [address] [place] [address] Urea nitrogen [Mass/Vol] 29 mg/dL High 9-20 [facility] Comment on above: Order Comment: SLIGH T HEMOLYSIS Performed By: #### B GLU #### [facility] [address] [place] [address] Anion gap [Moles/Vol] 7 mmol/L Normal 3-13 [facility] Comment on above: Order Comment: SLIGH T HEMOLYSIS Performed By: #### B GLU #### [facility] [address] [place] [address] AST [Catalytic activity/Vol] 53 U/L High 15-46 [facility] Comment on above: Order Comment: SLIGH T HEMOLYSIS Performed By: #### B GLU #### [facility] [address] [place] [address] Bilirubin [Mass/Vol] 1.9 mg/dL High 0.2-1.3 [facility] Comment on above: Order Comment: SLIGH T HEMOLYSIS Performed By: #### B GLU #### [facility] [address] [place] [address] CO2 [Moles/Vol] 21 mmol/L Low 22-30 [facility] Comment on above: Order Comment: SLIGH T HEMOLYSIS Performed By: #### B GLU #### [facility] [address] [place] [address] Creatinine [Mass/Vol] 0.97 mg/dL Normal 0.52-1.25 [facility] Comment on above: Order Comment: SLIGH T HEMOLYSIS Performed By: #### B GLU #### [facility] [address] [place] [address] GFR/1.73 sq M.predicted among blacks MDRD (S/P/Bld) [Vol rate/Area] 65.6 mL/min/{1.73_m2} Normal >60 [facility] Comment on above: Order Comment: SLIGH T HEMOLYSIS Performed By: #### B GLU #### [facility] [address] [place] [address] GFR/1.73 sq M.predicted among non-blacks MDRD (S/P/Bld) [Vol rate/Area] 56.6 mL/min/{1.73_m2} Abnormal >60 [facility] Comment on above: Order Comment: SLIGH [...] secretion. Performed By: #### B GLU #### [facility] [address] [place] [address] Protein [Mass/Vol] 6.2 g/dL Low 6.3-8.2 [facility] Comment on above: Order Comment: SLIGH T HEMOLYSIS Performed By: #### B GLU #### [facility] [address] [place] [address] Potassium [Moles/Vol] 3.6 mmol/L Normal 3.5-5.1 [facility] Comment on above: Order Comment: SLIGH T HEMOLYSIS Performed By: #### B GLU #### [facility] [address] [place] [address] Sodium [Moles/Vol] 139 mmol/L Normal 135-145 [facility] Comment on above: Order Comment: SLIGH T HEMOLYSIS Performed By: #### B GLU #### [facility] [address] [place] [address] Albumin [Mass/Vol] 3.2 g/dL Low 3.5-5.0 [facility] Comment on above: Order Comment: SLIGH T HEMOLYSIS Performed By: #### B GLU #### [facility] [address] [place] [address] Chloride [Moles/Vol] 111 mmol/L High 98-107 [facility] Comment on above: Order Comment: SLIGH T HEMOLYSIS Performed By: #### B GLU #### [facility] [address] [place] [address] Comprehensive Metabolic Pane smith 12-14-2021 Albumin [Mass/Vol] 3.5 g/dL 3.5 - 5.0 g/dL [facility] ALP (Bld) [Catalytic activity/Vol] 94 U/L 38 - 126 U/L [facility] ALT [Catalytic activity/Vol] 32 U/L 0 - 34 U/L [facility] Comment on above: The ALT test is perf ormed by an updated assay method. Please note that the reference intervals have been changed and are now sex specific. Anion gap [Moles/Vol] 7 mmol/L 3 - 13 mmol/L [facility] AST [Catalytic activity/Vol] 63 U/L High 15 - 46 U/L [facility] Bilirubin [Mass/Vol] 1.4 mg/dL High 0.2 - 1 .3 mg/dL [facility] Calcium [Mass/Vol] 9.2 mg/dL 8.4 - 10. 4 mg/dL [facility] Chloride [Moles/Vol] 108 mmol/L High 98 - 10 7 mmol/L [facility] CO2 [Moles/Vol] 21 mmol/L Low 22 - 30 mmol/L [facility] Creatinine [Mass/Vol] 1.03 mg/dL 0.52 - 1.25 mg/dL [facility] EGFR IF NonAfrican Jamaican 52.6 mL/min Abnormal >60 [facility] Comment on above: [...] - 1.25 mg/dL [facility] EGFR IF NonAfrican Jamaican 56.6 mL/min Abnormal >60 [facility] Comment on [...] 157 mg/dL High 70 - 100 mg/dL [facility] Interpretation and review of laboratory results Abnormal [facility] Potassium [Moles/Vol] 3.6 mmol/L 3.5 - 5.1 mmol/L [facility] Sodium [Moles/Vol] 139 mmol/L 135 - 145 mmol/L [facility] Urea nitrogen (BldV) [Mass/Vol] 29 mg/dL High 9 - 20 mg/dL [facility] Test Performed by [facility], [address] [place] [address] SLIGHT HEMOLYSIS [facility] Glucose,Bedsideon 12-14-2021 Glucose [Mass/Vol] 163 mg/dL High 70-100 [facility] Comment on above: Result Comment: Test performed by glucose meter. Results may be 10%-15% lower than serum/plasma values. (CLIA ID [id number]) Performed By: #### B GLU #### [facility] [address] [place] [address] Glucose [Mass/Vol] 214 mg/dL High 70-100 [facility] Comment on above: Result Comment: Test performed by glucose meter. Results may be 10%-15% lower than serum/plasma values. (CLIA ID [id number]) Performed By: #### B NP3, CMP3, HEMDF #### [facility] [address] [place] [address] Glucose [Mass/Vol] 146 mg/dL High 70-100 [facility] Comment on above: Result Comment: Test performed by glucose meter. Results may be 10%-15% lower than serum/plasma values. (CLIA ID [id number]) Performed By: #### B GLU #### [facility] [address] [place] [address] Hemogram w/ Autodiffon 12-14 Abs Baso Cnt 0.0 10*3/uL Normal 0.0-0.2 [facility] Comment on above: Performed By: #### B GLU #### [facility] [address] [place] [address] Abs Neutrophile Cnt 7.7 10*3/uL High 1.8-7.0 [facility] Comment on above: Performed By: #### B GLU #### [facility] [address] [place] [address] Basophils/100 WBC (Bld) 0.5 % Normal 0.0-2.0 [facility] Comment on above: Performed By: #### B GLU #### [facility] [address] [place] [address] Eosinophils (Bld) [#/Vol] 0.1 10*3/uL Normal 0.0-0.5 [facility] Comment on above: Performed By: #### B GLU #### [facility] [address] [place] [address] Eosinophils/100 WBC (Bld) 1.3 % Normal 1.0-6.0 [facility] Comment on above: Performed By: #### B GLU #### [facility] [address] [place] [address] Erythrocyte distribution width (RBC) [Ratio] 13.8 % Normal 11.5-14.5 [facility] Comment on above: Performed By: #### B GLU #### [facility] [address] [place] [address] Granulocytes/100 WBC (Bld) 79.5 % Normal 40.0-80.0 [facility] Comment on above: Performed By: #### B GLU #### [facility] [address] [place] [address] Hematocrit (Bld) [Volume fraction] 37.2 % Normal 35.0-47.0 [facility] Comment on above: Performed By: #### B GLU #### [facility] [address] [place] [address] Hemoglobin (Bld) [Mass/Vol] 12.5 g/dL Normal 11.7-16.0 [facility] Comment on above: Performed By: #### B GLU #### [facility] [address] [place] [address] Lymphocytes (Bld) [#/Vol] 0.7 10*3/uL Low 1.0-4.3 [facility] Comment on above: Performed By: #### B GLU #### [facility] [address] [place] [address] Lymphocytes/100 WBC (Bld) 7.5 % Low 20.0-40.0 [facility] Comment on above: Performed By: #### B GLU #### [facility] [address] [place] [address] MCH (RBC) [Entitic mass] 33.3 pg Normal 26.0-34.0 [facility] Comment on above: Performed By: #### B GLU #### [facility] [address] [place] [address] MCHC 33.7 % Normal 32.0-36.0 [facility] Comment on above: Performed By: #### B GLU #### [facility] [address] [place] [address] MCV (RBC) [Entitic vol] 98.9 fL High 79.0-98.0 [facility] Comment on above: Performed By: #### B GLU #### [facility] [address] [place] [address] Monocytes (Bld) [#/Vol] 1.1 10*3/uL High 0.0-0.8 [facility] Comment on above: Performed By: #### B GLU #### [facility] [address] [place] [address] Monocytes/100 WBC (Bld) 11.2 % High 2.0-10.0 [facility] Comment on above: Performed By: #### B GLU #### [facility] [address] [place] [address] Platelet mean volume (Bld) [Entitic vol] 10.5 fL Normal 7.4-12.4 [facility] Comment on above: Result Comment: MPV is a calculated measurement using platelet volume ratio. Performed By: #### B GLU #### [facility] [address] [place] [address] Platelets (Bld) [#/Vol] 85 10*3/uL Low 140-440 [facility] Comment on above: Performed By: #### B GLU #### [facility] [address] [place] [address] RBC (Bld) [#/Vol] 3.76 10*6/uL Low 3.80-5.20 [facility] Comment on above: Performed By: #### B GLU #### [facility] [address] [place] [address] WBC (Bld) [#/Vol] 9.7 10*3/uL Normal 3.6-10.7 [facility] Comment on above: Performed By: #### B GLU #### [facility] [address] [place] [address] Platelets (Bld) [#/Vol] 95 10*3/uL Low 140-440 [facility] Comment on above: Result Comment: Occa sional fibrin strands noted on smear, no clot detected in tube, may affect plate count, suggest repeat draw. Performed By: #### B GLU #### [facility] [address] [place] [address] Abs Baso Cnt 0.0 10*3/uL Normal 0.0-0.2 [facility] Comment on above: Performed By: #### B GLU #### [facility] [address] [place] [address] Abs Neutrophile Cnt 7.8 10*3/uL High 1.8-7.0 [facility] Comment on above: Performed By: #### B GLU #### [facility] [address] [place] [address] Basophils/100 WBC (Bld) 0.4 % Normal 0.0-2.0 [facility] Comment on above: Performed By: #### B GLU #### [facility] [address] [place] [address] Eosinophils (Bld) [#/Vol] 0.0 10*3/uL Normal 0.0-0.5 [facility] Comment on above: Performed By: #### B GLU #### [facility] [address] [place] [address] Eosinophils/100 WBC (Bld) 0.5 % Low 1.0-6.0 [facility] Comment on above: Performed By: #### B GLU #### [facility] [address] [place] [address] Erythrocyte distribution width (RBC) [Ratio] 14.0 % Normal 11.5-14.5 [facility] Comment on above: Performed By: #### B GLU #### [facility] [address] [place] [address] Granulocytes/100 WBC (Bld) 82.9 % High 40.0-80.0 [facility] Comment on above: Performed By: #### B GLU #### [facility] [address] [place] [address] Hematocrit (Bld) [Volume fraction] 30.4 % Low 35.0-47.0 [facility] Comment on above: Performed By: #### B GLU #### [facility] [address] [place] [address] Hemoglobin (Bld) [Mass/Vol] 10.6 g/dL Low 11.7-16.0 [facility] Comment on above: Performed By: #### B GLU #### [facility] [address] [place] [address] Lymphocytes (Bld) [#/Vol] 0.7 10*3/uL Low 1.0-4.3 [facility] Comment on above: Performed By: #### B GLU #### [facility] [address] [place] [address] Lymphocytes/100 WBC (Bld) 7.5 % Low 20.0-40.0 [facility] Comment on above: Performed By: #### B GLU #### [facility] [address] [place] [address] MCH (RBC) [Entitic mass] 34.0 pg Normal 26.0-34.0 [facility] Comment on above: Performed By: #### B GLU #### [facility] [address] [place] [address] MCHC 34.8 % Normal 32.0-36.0 [facility] Comment on above: Performed By: #### B GLU #### [facility] [address] [place] [address] MCV (RBC) [Entitic vol] 97.9 fL Normal 79.0-98.0 [facility] Comment on above: Performed By: #### B GLU #### [facility] [address] [place] [address] Monocytes (Bld) [#/Vol] 0.8 10*3/uL Normal 0.0-0.8 [facility] Comment on above: Performed By: #### B GLU #### [facility] [address] [place] [address] Monocytes/100 WBC (Bld) 8.7 % Normal 2.0-10.0 [facility] Comment on above: Performed By: #### B GLU #### [facility] [address] [place] [address] Platelet mean volume (Bld) [Entitic vol] 10.5 fL Normal 7.4-12.4 [facility] Comment on above: Result Comment: MPV is a calculated measurement using platelet volume ratio. Performed By: #### B GLU #### [place] [address] [place] [address] RBC (Bld) [#/Vol] 3.11 10*6/uL Low 3.80-5.20 [facility] Comment on above: Performed By: #### B GLU #### [facility] [address] [place] [address] WBC (Bld) [#/Vol] 9.4 10*3/uL Normal 3.6-10.7 [facility] Comment on above: Performed By: #### B GLU #### [facility] [address] [place] [address] Lactic Acidon 12-14-2021 Lactate [Moles/Vol] 1.6 mmol/L Normal 0.7-2.0 [facility] Comment on above: Performed By: #### B GLU #### [facility] [address] [place] [address] Lactate [Moles/Vol] 1.6 mmol/L 0.7 - 2. 0 mmol/L [facility] Lactic Acid, Sepsison 2021 Lactate [Moles/Vol] 1.7 mmol/L Normal 0.7-2.0 [facility] Comment on above: Performed By: #### B GLU #### [facility] [address] [place] [address] NT pro BNPon 12-14-2021 Natriuretic peptide B (Bld) [Mass/Vol] 08[address] pg/mL High 0-450 [facility] Comment on above: Performed By: #### B GLU #### [facility] [address] [place] [address] No Panel Informationon 12-14 Test Performed by [facility], [address] [facility] Test Performed by [facility], [address] [facility] POCT Glucoseon 12-14-2021 Glucose [Mass/Vol] 163 mg/dL High 70 - 100 mg/dL [facility] Comment on above: Test performed by gl ucose meter. Results may be 10%-15% lower than serum/plasma values. (CLIA ID [id number]) Interpretation and review of laboratory results Abnormal [facility] Test Performed by [facility], [address] [facility] Glucose [Mass/Vol] 214 mg/dL High 70 - 100 mg/dL [facility] Comment on above: Test performed by gl ucose meter. Results may be 10%-15% lower than serum/plasma values. (CLIA ID [id number]) Interpretation and review of laboratory results Abnormal [facility] Test Performed by [facility], [address] [facility] Test Performed by [facility], [address] LAB POCT GlucoseOrdered By: Robe Villegas on 12-14-2021 Glucose [Mass/Vol] 146 mg/dL High 70 - 100 mg/dL [facility] Work Phone: Comment on above: Test performed by gl ucose meter. Results may be 10%-15% lower than serum/plasma values. (CLIA ID [id number]) Interpretation and review of laboratory results Abnormal [facility] Work Phone: [facility] Work Phone: Procalcitoninon 12-14-2021 Interpretation See Below Normal [facility] Comment on above: Result Comment: PCT <0.50 = Low risk of severe sepsis and/or septic shock. PCT >2.00 = High risk of severe sepsis and/or septic shock. Performed By: #### B GLU #### [facility] [address] [place] [address] RBC MORPHOLOGYon 12-14-2021 RBC (Bld) [#/Vol] Normal [facility] RBC Morphologyon 12-14-2021 RBC morphology finding Nom (Bld) Normal Normal [facility] Comment on above: Performed By: #### B GLU #### [facility] [address] [place] [address] VL LOWER EXTREMITY BILATERAL VENOUS DUPLEXon 12-14-[address] [facility] Lower Extremity Venous Duplex Report Patient Ravindra : 1945 Study 12/14/2021 Name: Mikel Davis (76yrs) Date: Age: 76 Account: [id number] Gender: F Loc: 260 BP: Ordering Physician: Terence Gonzalez Preparatory Technician: Adrienne Williamson RDMS, FRANCIST Interpreting Physician: Clinton Dove MD Location: [facility] Indications: Edema of the bilateral legs. Conclusions [...] supine position. Images were obtained using a [employer] vascular ultrasound machine. The study was technically [...] + + ------+-------+--- (more content not included)... [facility] Clinton Dove MD - 12/14/[address] [facility] Lower Extremity Venous Duplex Report Patient DO RavindraB: 1945 Study 12/14/2021 Name: Mikel Davis (76yrs) Date: Age: 76 Account: [id number] Gender: F Loc: 260 BP: Ordering Physician: Terence Gonzalez Preparatory Technician: Adrienne Williamson RDMS, FRANCIST Interpreting Physician: Clinton Dove MD Location: [facility] Indications: Edema of the bilateral legs. Conclusions [...] supine position. Images were obtained using a [employer] vascular ultrasound machine. The study was technically [...] +L soleal +Trent (more content not included)... [employer] Phone: VL LOWER EXTREMITY BILATERAL VENOUS DUPLEXOrdered By: Clinton Dove on 12-14-2021 [facility] Work Phone: VL Venous Duplex US Lower Ex t Bilateralon 12-14-2021 VL Venous Duplex US Lower Ext Bilateral Patient Name: MIKEL WINSTON Ultrasound ACCESSION EXAM DATE/TIME PROCEDURE ORDERING PROVIDER [id number] 12/14/2021 09:44 EDT VL Venous Duplex US MD GONZALEZ PRAMOD Lower Ext Bilateral CPT code 82722 Reason For Exam (VL Venous Duplex US Lower Ext Bilateral) LE edema Report [facility] Lower Extremity Venous Duplex Report Patient DO RavindraB: 1945 Study 12/14/2021 Name: Mikel Davis (76yrs) Date: Age: 76 Account: [id number] Gender: F Loc: 260 BP: Ordering Physician: Terence Gonzalez Preparatory Technician: Adrienne Williamson RDMS, T Interpreting Physician: Clinton Dove MD Location: [facility] Indications: Edema of the bilateral legs. Conclusions [...] supine position. Images were obtained using a [employer] vascular ultrasound machine. Ultrasound Report The study [...] ------+-------+----- ----- (more content not included)... Normal [employer] XR CHEST PORTABLEon 12-15-19 Patient Name: MIKEL WINSTON Diagnostic Radiology ACCESSION EXAM DATE/TIME PROCEDURE ORDERING PROVIDER [id number] 12/14/2021 18:24 EDT CR Chest Portable MD GONZALEZ PRAMOD CPT code 78091 Reason For Exam (CR Chest Portable) SOB [...] R Transcribed Date and Time: 12/14/2021 7:10 [facility] RAD Clinton Serna MD - 12/14/2021 Patient Name: MIKEL WINSTON Diagnostic Radiology ACCESSION EXAM DATE/TIME PROCEDURE ORDERING PROVIDER [id number] 12/14/2021 18:24 EDT CR Chest Portable MD GONZALEZ PRAMOD CPT code 47147 Reason For Exam (CR Chest Portable) SOB [...] R Transcribed Date and Time: 12/14/2021 7:10 [facility] Work Phone: Radiology Study observation (narrative) [facility] Work Phone: XR CHEST PORTABLEOrdered By: Clinton Serna on 12-14-2021 [facility] Work Phone: Add On Lab Teston 12-13-2021 Add On Accepted [facility] Comment on above: Specimen available & acceptable for analysis. Test Performed by [facility], [address], [place], [place] [address] [facility] LAB [facility] Add on test from HISon 12-13 Add on test from HIS Accepted Normal [facility] Comment on above: Result Comment: Spec imen available & acceptable for analysis. Performed By: ### A DDON #### [facility] [address] [place] [address] Basic Metabolic Panelon 05-0 Calcium [Mass/Vol] 10.3 mg/dL Normal 8.4-10.4 [facility] Comment on above: Performed By: #### B NP3, CMP3, HEMDF #### [facility] [address] [place] [address] Glucose [Mass/Vol] 181 mg/dL High 70-100 [facility] Comment on above: Performed By: #### B NP3, CMP3, HEMDF #### [facility] [address] [place] [address] Urea nitrogen [Mass/Vol] 34 mg/dL High 9-20 [facility] Comment on above: Performed By: #### B NP3, CMP3, HEMDF #### [facility] [address] [place] [address] Anion gap [Moles/Vol] 9 mmol/L Normal 3-13 [facility] Comment on above: Performed By: #### B NP3, CMP3, HEMDF #### [facility] [address] [place] [address] CO2 [Moles/Vol] 23 mmol/L Normal 22-30 [facility] Comment on above: Performed By: #### B NP3, CMP3, HEMDF #### [facility] [address] [place] [address] Creatinine [Mass/Vol] 1.22 mg/dL Normal 0.52-1.25 [facility] Comment on above: Performed By: #### B NP3, CMP3, HEMDF #### [facility] [address] [place] [address] GFR/1.73 sq M.predicted among blacks MDRD (S/P/Bld) [Vol rate/Area] 49.7 mL/min/{1.73_m2} Abnormal >60 [facility] Comment on above: Performed By: #### B NP3, CMP3, HEMDF #### [facility] [address] [place] [address] GFR/1.73 sq M.predicted among non-blacks MDRD (S/P/Bld) [Vol rate/Area] 42.9 mL/min/{1.73_m2} Abnormal >60 [facility] Comment on above: Result Comment: KDIG [...] By: #### B NP3, CMP3, HEMDF #### [facility] [address] [place] [address] Potassium [Moles/Vol] 3.7 mmol/L Normal 3.5-5.1 [facility] Comment on above: Performed By: #### B NP3, CMP3, HEMDF #### [facility] [address] [place] [address] Chloride [Moles/Vol] 110 mmol/L High 98-107 [facility] Comment on above: Performed By: #### B NP3, CMP3, HEMDF #### [facility] [address] [place] [address] Sodium [Moles/Vol] 141 mmol/L Normal 135-145 [facility] Comment on above: Performed By: #### B NP3, CMP3, HEMDF #### [facility] [address] [place] [address] Anion gap [Moles/Vol] 9 mmol/L 3 - 13 mmol/L [facility] Calcium [Mass/Vol] 10.3 mg/dL 8.4 - 10. 4 mg/dL [facility] Chloride [Moles/Vol] 110 mmol/L High 98 - 10 7 mmol/L [facility] CO2 [Moles/Vol] 23 mmol/L 22 - 30 mmol/L [facility] Creatinine [Mass/Vol] 1.22 mg/dL 0.52 - 1.25 mg/dL [facility] EGFR IF NonAfrican Jamaican 42.9 mL/min Abnormal >60 [facility] Comment on [...] - 20 mg/dL [facility] Test Performed by [facility] [employer] [facility], [address] [place], [place] [id number] [place] [address] LAB [facility] CBC with Auto Differentialon 12-13-2021 Absolute Baso [...] 15.1 10*3/uL High 3.6 - 10.7 10*3/uL [facility] Test Performed by [employer] [facility], [address], [place], [place] [address] [place] [address] LAB [facility] CT Head WO Contraston 2021 Patient Name: MIKEL WINSTON Computed Tomography ACCESSION EXAM DATE/TIME PROCEDURE ORDERING PROVIDER [id number] 12/13/2021 12:[address] Head or Brain w/o [id number] -MORAH, J Contrast CPT code 30593 Reason For Exam (CT Head or Brain [...] R Transcribed Date and Time: 12/13/2021 12:53 [facility] Shemar Teresa MD - 12/13/2021 Patient Name: MIKEL WINSTON Computed Tomography ACCESSION EXAM DATE/TIME PROCEDURE ORDERING PROVIDER [id number] 12/13/2021 12:[address] Head or Brain w/o [id number] -MORAH, J Contrast CPT code 39374 Reason For Exam (CT Head or Brain [...] Tomography ACCESSION EXAM DATE/TIME PROCEDURE ORDERING PROVIDER [id number] 12/13/2021 12:[address] Head or Brain w/o [id number] -ALVARO, J Contrast CPT code 24378 Reason For Exam (CT Head or Brain [...] Transcribed Date and Time: 12/13/2021 12:53 Normal [facility] Complete Urinalysison 2021 Appearance (U) Clear Normal Clear [facility] Comment on above: Result Comment: . Performed By: #### B GLU #### [facility] [address] [place] [address] Bacteria Moderate Abnormal Negative [facility] Comment on above: Result Comment: . Performed By: #### B GLU #### [facility] [address] [place] [address] Bilirubin,Urine Negative Normal Negative [facility] Comment on above: Result Comment: . Performed By: #### B GLU #### [facility] [address] [place] [address] Color (U) Yellow Normal Lt. Yellow [facility] Comment on above: Result Comment: . Performed By: #### B GLU #### [facility] [address] [place] [address] Glucose Ql (U) Normal Normal Normal (<70) [facility] Comment on above: Result Comment: . Performed By: #### B GLU #### [facility] [address] [place] [address] Ketone,Urine Negative Normal Negative [facility] Comment on above: Result Comment: . Performed By: #### B GLU #### [facility] [address] [place] [address] Leukocytes,Urine Negative Normal Negative [facility] Comment on above: Result Comment: . Performed By: #### B GLU #### [facility] [address] [place] [address] Mucous Threads Few Normal Negative [facility] Comment on above: Result Comment: . Performed By: #### B GLU #### [facility] [address] [place] [address] Nitrites,Urine Negative Normal Negative [facility] Comment on above: Result Comment: . Performed By: #### B GLU #### [facility] [address] [place] [address] Occult Blood,Urine Negative Normal Negative [facility] Comment on above: Result Comment: . Performed By: #### B GLU #### [facility] [address] [place] [address] pH,Urine 5.0 Normal 5.0-8.0 [facility] Comment on above: Result Comment: . Performed By: #### B GLU #### [facility] [address] [place] [address] Protein (U) [Mass/Vol] 10 mg/dL Abnormal Negative [facility] Comment on above: Result Comment: . Performed By: #### B GLU #### [facility] [address] [place] [address] RBC, Urine 0 - 2 Normal 0-2 [facility] Comment on above: Result Comment: . Performed By: #### B GLU #### [facility] [address] [place] [address] Specific Kyle,Urine 1.023 Normal 1.005 - 1.030 [facility] Comment on above: Result Comment: . Performed By: #### B GLU #### [facility] [address] [place] [address] Squamous Epithelial 0 - 2 Normal 3-5 [facility] Comment on above: Result Comment: . Performed By: #### B GLU #### [facility] [address] [place] [address] Uric Acid Crystals Few Abnormal Negative [facility] Comment on above: Result Comment: . Performed By: #### B GLU #### [facility] [address] [place] [address] Urobilinogen,Urine Normal Normal Normal (0-1) [facility] Comment on above: Result Comment: . Performed By: #### B GLU #### [facility] [address] [place] [address] WBC, Urine 0 - 2 Normal 0-5 [facility] Comment on above: Result Comment: . Performed By: #### B GLU #### [facility] [address] [place] [address] ED Provider Noteon 2 ED [facility]NCOUNTER Pt Name: Mikel [...] patient states that she has been feeling "woozy" and her son is at the bedside, [...] and Family: Not on file ? Attends Protestant Services: Not on file ? Active Member [...] (!) 146/6 (more content not included)... Normal [facility] Glucose,Bedsideon 12-13-2021 Glucose [Mass/Vol] 217 mg/dL High 70-100 [facility] Comment on above: Result Comment: Test performed by glucose meter. Results may be 10%-15% lower than serum/plasma values. (CLIA ID [id number]) Performed By: #### B GLU #### [facility] [address] [place] [address] Glucose [Mass/Vol] 176 mg/dL High 70-100 [facility] Comment on above: Result Comment: Test performed by glucose meter. Results may be 10%-15% lower than serum/plasma values. (CLIA ID [id number]) Performed By: #### B GLU #### [facility] [address] [place] [address] Hemogram w/ Autodiffon 12-13 Abs Baso Cnt 0.1 10*3/uL Normal 0.0-0.2 [facility] Comment on above: Performed By: #### B NP3, CMP3, HEMDF #### [facility] [address] [place] [address] Abs Neutrophile Cnt 13.0 10*3/uL High 1.8-7.0 [facility] Comment on above: Performed By: #### B NP3, CMP3, HEMDF #### [facility] [address] [place] [address] Basophils/100 WBC (Bld) 0.5 % Normal 0.0-2.0 [facility] Comment on above: Performed By: #### B NP3, CMP3, HEMDF #### [facility] [address] [place] [address] Eosinophils (Bld) [#/Vol] 0.0 10*3/uL Normal 0.0-0.5 [facility] Comment on above: Performed By: #### B NP3, CMP3, HEMDF #### [facility] [address] [place] [address] Eosinophils/100 WBC (Bld) 0.0 % Low 1.0-6.0 [facility] Comment on above: Performed By: #### B NP3, CMP3, HEMDF #### [facility] [address] [place] [address] Erythrocyte distribution width (RBC) [Ratio] 13.4 % Normal 11.5-14.5 [facility] Comment on above: Performed By: #### B NP3, CMP3, HEMDF #### [facility] [address] [place] [address] Granulocytes/100 WBC (Bld) 85.9 % High 40.0-80.0 [facility] Comment on above: Performed By: #### B NP3, CMP3, HEMDF #### [facility] [address] [place] [address] Hematocrit (Bld) [Volume fraction] 34.3 % Low 35.0-47.0 [facility] Comment on above: Performed By: #### B NP3, CMP3, HEMDF #### [facility] [address] [place] [address] Hemoglobin (Bld) [Mass/Vol] 11.7 g/dL Normal 11.7-16.0 [facility] Comment on above: Performed By: #### B NP3, CMP3, HEMDF #### [facility] [address] [place] [address] Lymphocytes (Bld) [#/Vol] 0.7 10*3/uL Low 1.0-4.3 [facility] Comment on above: Performed By: #### B NP3, CMP3, HEMDF #### [facility] [address] [place] [address] Lymphocytes/100 WBC (Bld) 4.3 % Low 20.0-40.0 [facility] Comment on above: Performed By: #### B NP3, CMP3, HEMDF #### [facility] [address] [place] [address] MCH (RBC) [Entitic mass] 32.9 pg Normal 26.0-34.0 [facility] Comment on above: Performed By: #### B NP3, CMP3, HEMDF #### [facility] [address] [place] [address] MCHC 34.1 % Normal 32.0-36.0 [facility] Comment on above: Performed By: #### B NP3, CMP3, HEMDF #### [facility] [address] [place] [address] MCV (RBC) [Entitic vol] 96.6 fL Normal 79.0-98.0 [facility] Comment on above: Performed By: #### B NP3, CMP3, HEMDF #### [facility] [address] [place] [address] Monocytes (Bld) [#/Vol] 1.4 10*3/uL High 0.0-0.8 [facility] Comment on above: Performed By: #### B NP3, CMP3, HEMDF #### [facility] [address] [place] [address] Monocytes/100 WBC (Bld) 9.3 % Normal 2.0-10.0 [facility] Comment on above: Performed By: #### B NP3, CMP3, HEMDF #### [facility] [address] [place] [address] Platelet mean volume (Bld) [Entitic vol] 10.3 fL Normal 7.4-12.4 [facility] Comment on above: Result Comment: MPV is a calculated measurement using platelet volume ratio. Performed By: #### B NP3, CMP3, HEMDF #### [facility] [address] [place] [address] Platelets (Bld) [#/Vol] 101 10*3/uL Low 140-440 [facility] Comment on above: Performed By: #### B NP3, CMP3, HEMDF #### [facility] [address] [place] [address] RBC (Bld) [#/Vol] 3.55 10*6/uL Low 3.80-5.20 [facility] Comment on above: Performed By: #### B NP3, CMP3, HEMDF #### [facility] [address] [place] [address] WBC (Bld) [#/Vol] 15.1 10*3/uL High 3.6-10.7 [facility] Comment on above: Performed By: #### B NP3, CMP3, HEMDF #### [facility] [address] [place] [address] Lactate, Sepsison 12-13-2021 Lactate [Moles/Vol] 1.7 mmol/L 0.7 - 2. 0 mmol/L [facility] Test Performed by [place] [address] LAB [facility] Interpretation and review of laboratory results Abnormal [facility] Lactate [Moles/Vol] 2.1 mmol/L Critically high 0.7 - 2.0 mmol/L [facility] Test Performed by [place] [address] LAB [facility] Lactic Acidon 12-13-2021 Lactate [Moles/Vol] 2.1 mmol/L Critically high 0.7-2.0 [facility] Comment on above: Performed By: #### B GLU #### [facility] [address] [place] [address] Interpretation and review of laboratory results Abnormal [facility] Lactate [Moles/Vol] 2.1 mmol/L Critically high 0.7 - 2.0 mmol/L [facility] Test Performed by [place] [address] LAB [facility] Lactic Acid, Sepsison 2021 Lactate [Moles/Vol] 2.1 mmol/L Critically high 0.7-2.0 [facility] Comment on above: Performed By: #### B GLU #### [facility] [address] [place] [address] POCT GlucoseOrdered By: Anthony Sagastume on 12-13-2021 Glucose [Mass/Vol] 217 mg/dL High 70 - 100 mg/dL [facility] Comment on above: Test performed by ucose meter. Results may be 10%-15% lower than serum/plasma values. (CLIA ID [id number]) Interpretation and review of laboratory results Abnormal [facility] POCT Glucoseon 12-13-2021 Test Performed by [facility], [address] [place], [place] [id number] [place] [address] LAB Test Performed by [facility], [address] [place], [place] [address] [place] [address] LAB POCT GlucoseOrdered By: Gerard Winston on 12-13-2021 Glucose [Mass/Vol] 176 mg/dL High 70 - 100 mg/dL [facility] Work Phone: Comment on above: Test performed by gl ucose meter. Results may be 10%-15% lower than serum/plasma values. (CLIA ID [id number]) Interpretation and review of laboratory results Abnormal [facility] Work Phone: [facility] Work Phone: Urinalysison 12-13-2021 Appearance (U) Clear [...] Interpretation and review of laboratory results Abnormal [facility] Ketones Ql (U) Negative Negative mg/dL [facility] [...] /[HPF] [facility] Comment on above: . Specific Kyle, Urine 1.023 S [facility] Comment on above: . Squam Epithel, UA 0-2 3 - 5 /[HPF] [facility] Comment on above: . Uric Acid Valerie, UA Few Abnormal Negative /[HPF] [facility] Comment on above: . Urobilinogen, Urine Normal Normal (0-1) mg/dL [facility] Comment on above: . WBC, UA 0-2 0 - 5 /[HPF] [facility] Comment on above: . Test Performed by [facility], [address], [place], [place] [address] [facility] LAB [facility] VL LOWER EXTREMITY BILATERAL VENOUS DUPLEXon 12-13-2021 Radiology Study observation (narrative) [facility] Work Phone: Laboratory - Chemistry and C hemistry - challengeon 11-26-2020 Average glucose Estimated from glycated hemoglobin (Bld) [Mass/Vol] 140 mg/dL [facility] Laboratory - Hematology and Cell countson 11-26-2020 HbA1c (Bld) [Mass fraction] 6.5 % High 4.3 - 5.6 % [facility] VL LOWER EXTREMITY VENOUS RI GHT [id number] 08-29-[address] [facility] Right Lower Extremity Venous Duplex Report Patient Ravindra, : 1945 Study 08/29/2020 Name: Mikel Davis (75yrs) Date: Age: 75 Account: [id number] Gender: F Loc: BP: Ordering Physician: Komal Cohn Preparatory Technician: Adrienne Williamson RDMS, RVT Interpreting Physician: Gracie Michele MD Location: [facility] Indications: DVT. Preliminary result was reported to [...] supine position. Images were obtained using a [employer] E9 vascular ultrasound machine. Venous flow and [...] signed by Gracie Michele MD 08/29/2020 15:12 [facility] [place], [place] Taran Mcdonald Incoming Cardiology Results From [facility] - 08/29/2020 3:12 PM EST [facility] Right Lower Extremity Venous Duplex Report Patient Ravindra CYRIL: 1945 Study 08/29/2020 Name: Mikel Davis (75yrs) Date: Age: 75 Account: [id number] Gender: F Loc: BP: Ordering Physician: Komal Cohn Preparatory Technician: Adrienne Williamson RDMS, RVT Interpreting Physician: Gracie Michele MD Location: [facility] Indications: DVT. Preliminary result was reported to [...] supine position. Images were obtained using a [employer] E9 vascular ultrasound machine. Venous flow and [...] signed by Gracie Michele MD 08/29/2020 15:12 [facility] [place], [place] CT Facial Bones WO ContrastO rdered By: Melanie Padilla on 08-25-2019 Patient Name: MIKEL WINSTON ---CT--- Exam Date/Time 08/25/2019 17:45:[address] Maxillofacial w/o Contrast Ordering Physician BAYRON PADILLA TAYLOR Accession Number [id number] CPT4 Codes 00050 () Reason For Exam fall, head injury, [...] Time: 08/25/2019 5:56 [facility] Work Phone: Harry, [facility] Incoming Radiology Results From [facility] - 08/25/2019 5:56 PM EST Patient Name: MIKEL WINSTON ---CT--- Exam Date/Time 08/25/2019 17:45:[address] Maxillofacial w/o Contrast Ordering Physician BAYRON PADILLA TAYLOR Accession Number [id number] CPT4 Codes 11649 () Reason For Exam fall, head injury, [...] and Time: 08/25/2019 5:56 [facility] Work Phone: CT Head WO ContrastOrdered B y: Melanie Padilla on 08-25-2019 Patient Name: MIKEL WINSTON ---CT--- Exam Date/Time 08/25/2019 17:45:[address] Head or Brain w/o Contrast Ordering Physician BAYRON PADILLA TAYLOR Accession Number [id number] CPT4 Codes 23894 () Reason For Exam fall, head injury [...] JOHN Transcribed Date and Time: 08/25/2019 5:48 [facility] Work Phone: Harry, [facility] Incoming Radiology Results From [facility] - 08/25/2019 5:48 PM EST Patient Name: MIKEL WINSTON ---CT--- Exam Date/Time 08/25/2019 17:45:[address] Head or Brain w/o Contrast Ordering Physician BYARON PADILLA TAYLOR Accession Number [id number] CPT4 Codes 18696 () Reason For Exam fall, head injury [...] JOHN Transcribed Date and Time: 08/25/2019 5:48 [facility] Work Phone: XR CHEST PORTABLEOrdered By: Melanie Padilla on 08-25-2019 Patient Name: MIKEL WINSTON ---Diagnostic Radiology--- Exam Date/Time 08/25/2019 17:21:32 EST Exam CR Chest Portable Ordering Physician BAYRON PADILLA TAYLOR Accession Number [id number] CPT4 Codes 20377 () Reason For Exam b/l anterolateral rib [...] JOHN Transcribed Date and Time: 08/25/2019 5:33 [facility] Work Phone: Harry, [facility] Incoming Radiology Results From [facility] - 08/25/2019 5:34 PM EST Patient Name: MIKEL WINSTON ---Diagnostic Radiology--- Exam Date/Time 08/25/2019 17:21:32 EST Exam CR Chest Portable Ordering Physician BAYRON PADILLA TAYLOR Accession Number [id number] CPT4 Codes 58213 () Reason For Exam b/l anterolateral rib [...] JOHN Transcribed Date and Time: 08/25/2019 5:33 [facility] Work Phone: XR KNEE LEFT (3 VIEWS)Ordere d By: Melanie Padilla on 08-25-2019 Patient Name: MIKEL WINSTON ---Diagnostic Radiology--- Exam Date/Time 08/25/2019 17:21:32 EST Exam CR Knee 3 Views Left Ordering Physician BAYRON PADILLA TAYLOR Accession Number [id number] CPT4 Codes 06320 () Reason For Exam left knee pain, [...] JOHN Transcribed Date and Time: 08/25/2019 5:34 [facility] Work Phone: [facility], [facility] Incoming Radiology Results From [facility] - 08/25/2019 5:34 PM EST Patient Name: MIKEL WINSTON ---Diagnostic Radiology--- Exam Date/Time 08/25/2019 17:21:32 EST Exam CR Knee 3 Views Left Ordering Physician BAYRON PADILLA TAYLOR Accession Number [id number] CPT4 Codes 54098 () Reason For Exam left knee pain, [...] JOHN Transcribed Date and Time: 08/25/2019 5:34 [facility] Work Phone: XR Shoulder Right 2 VWOrdere d By: Melanie Padilla on 08-25-2019 Patient Name: MIKEL WINSTON ---Diagnostic Radiology--- Exam Date/Time 08/25/2019 17:21:32 EST Exam CR Shoulder 2+ Views Right Ordering Physician BAYRON PADILLA TAYLOR Accession Number [id number] CPT4 Codes 20166 () Reason For Exam right shoulder pain, [...] JOHN Transcribed Date and Time: 08/25/2019 5:32 [facility] Work Phone: Harry, [facility] Incoming Radiology Results From [facility] - 08/25/2019 5:33 PM EST Patient Name: MIKEL WINSTON ---Diagnostic Radiology--- Exam Date/Time 08/25/2019 17:21:32 EST Exam CR Shoulder 2+ Views Right Ordering Physician BAYRON PADILLA TAYLOR Accession Number [id number] CPT4 Codes 08549 () Reason For Exam right shoulder pain, [...] JOHN Transcribed Date and Time: 08/25/2019 5:32 [facility] Work Phone: Vital Signs Date Time Vital Sign Value Performing Clinician [facility] 01-11-2025 15:30-0400 Diastolic blood pressure 74 mm[Hg] Meet Martinez BRUNNER Work Phone: [facility] 01-11-2025 15:30-0400 Systolic blood pressure 144 mm[Hg] Meet Martinez BRUNNER Work Phone: [facility] 01-11-2025 15:16-0400 Body height 162.6 cm Meet Martinez BRUNNER Work Phone: [facility] 01-11-2025 15:16-0400 Body mass index (BMI) [Ratio] 34.67 kg/m2 Meet Martinez BRUNNER Work Phone: [facility] 01-11-2025 15:16-0400 Body weight 91.63 kg Meet Martinez BRUNNER Work Phone: [facility] 01-11-2025 15:16-0400 Heart rate 84 /min Meet Martinez BRUNNER Work Phone: [facility] [employer] 01-11-2025 15:16-0400 SaO2% (BldA) [Mass fraction] 97 % Meet Martinez BRUNNER Work Phone: [facility] [employer] 07-04-2024 07:27-0500 Body temperature 98.49 [degF] Kaiden David MD Work Phone: [facility] [employer] 07-04-2024 07:27-0500 Diastolic blood pressure 62 mm[Hg] Kaiden David MD Work Phone: [facility] [employer] 07-04-2024 07:27-0500 Heart rate 86 /min Kaiden David MD Work Phone: [facility] [employer] 07-04-2024 07:27-0500 Respiratory rate 20 /min Kaiden David MD Work Phone: [facility] [employer] 07-04-2024 07:27-0500 SaO2% (BldA) [Mass fraction] 99 % Kaiden David MD Work Phone: [facility] [employer] 07-04-2024 07:27-0500 Systolic blood pressure 142 mm[Hg] Kaiden David MD Work Phone: [facility] [employer] 06-29-2024 08:31-0500 Body height 162.6 cm Kaiden David MD Work Phone: [facility] [employer] 06-26-2024 08:31-0500 SaO2% (BldA) [Mass fraction] 96.6 % Kaiden David MD Work Phone: [facility] [employer] 06-11-2024 13:54-0500 Diastolic blood pressure 90 mm[Hg] Komal Lalit DO Work Phone: [facility] 06-11-2024 13:54-0500 Systolic blood pressure 143 mm[Hg] [place] Lalit DO Work Phone: [facility] 06-11-2024 13:13-0500 Body height 162.6 cm [place] Lalit DO Work Phone: [facility] 06-11-2024 13:13-0500 Body mass index (BMI) [Ratio] 32.61 kg/m2 Komal Lalit DO Work Phone: [facility] 06-11-2024 13:13-0500 Body temperature 97.81 [degF] Komal Lalit DO Work Phone: [facility] 06-11-2024 13:13-0500 Body weight 86.18 kg [place] Lalit DO Work Phone: [facility] 06-11-2024 13:13-0500 Heart rate 92 /min Komal Lalit DO Work Phone: [facility] 06-11-2024 13:13-0500 SaO2% (BldA) [Mass fraction] 98 % [place] Lalit DO Work Phone: [facility] 06-01-2024 12:58-0400 Body temperature 98.8 [degF] Kimi [place] DO Work Phone: [facility] [employer] 06-01-2024 12:58-0400 Diastolic blood pressure 37 mm[Hg] Kimi [place] DO Work Phone: [facility] [employer] 06-01-2024 12:58-0400 Heart rate 66 /min Kimi [place] DO Work Phone: [facility] [employer] 06-01-2024 12:58-0400 Respiratory rate 17 /min Kimi [place] DO Work Phone: [facility] [employer] 06-01-2024 12:58-0400 SaO2% (BldA) [Mass fraction] 94 % Kimi [place] DO Work Phone: [facility] [employer] 06-01-2024 12:58-0400 Systolic blood pressure 126 mm[Hg] Kimi [place] DO Work Phone: [facility] [employer] 05-29-2024 22:29-0400 Body mass index (BMI) [Ratio] 36.56 kg/m2 Kimi [place] DO Work Phone: [facility] 05-29-2024 22:29-0400 Body weight 96.62 kg Kimi Ruggieroman DO Work Phone: [facility] 05-29-2024 18:40-0400 Body height 162.6 cm Kimi [place] DO Work Phone: [facility] 04-27-2024 16:08-0400 Body height 162.6 cm Komal Lalit DO Work Phone: [facility] 04-27-2024 16:08-0400 Body mass index (BMI) [Ratio] 33.99 kg/m2 [place] Lalit DO Work Phone: [facility] 04-27-2024 16:08-0400 Body temperature 98.1 [degF] [place] Lalit DO Work Phone: [facility] 04-27-2024 16:08-0400 Body weight 89.81 kg [place] Lalit DO Work Phone: [facility] 04-27-2024 16:08-0400 Diastolic blood pressure 64 mm[Hg] Komal Lalit DO Work Phone: [facility] 04-27-2024 16:08-0400 Heart rate 61 /min Komal Lalit DO Work Phone: [facility] 04-27-2024 16:08-0400 SaO2% (BldA) [Mass fraction] 96 % Komal Lalit DO Work Phone: [facility] 04-27-2024 16:08-0400 Systolic blood pressure 130 mm[Hg] [place] Lalit DO Work Phone: [facility] 04-18-2024 13:52-0400 Body height 162.6 cm Jose Rojas MD Work Phone: [facility] 04-18-2024 13:52-0400 Body mass index (BMI) [Ratio] 33.81 kg/m2 Jose Rojas MD Work Phone: [facility] 04-18-2024 13:52-0400 Body weight 89.36 kg Jose Rojas MD Work Phone: [facility] 03-16-2024 15:22-0400 Body height 162.6 cm [place] Lalit DO Work Phone: [facility] 03-16-2024 15:22-0400 Body mass index (BMI) [Ratio] 33.64 kg/m2 [place] Lalit DO Work Phone: [facility] 03-16-2024 15:22-0400 Body weight 88.91 kg Komal Lalit DO Work Phone: [facility] 03-16-2024 15:22-0400 Diastolic blood pressure 52 mm[Hg] [place] Lalit DO Work Phone: [facility] 03-16-2024 15:22-0400 Heart rate 60 /min [place] Lalit DO Work Phone: [facility] 03-16-2024 15:22-0400 SaO2% (BldA) [Mass fraction] 99 % Komal Lalit DO Work Phone: [facility] 03-16-2024 15:22-0400 Systolic blood pressure 120 mm[Hg] Komal Lalit DO Work Phone: [facility] 03-14-2024 13:06-0400 Body height 162.6 cm Jose Rojas MD Work Phone: [facility] 03-14-2024 13:06-0400 Body mass index (BMI) [Ratio] 33.81 kg/m2 Jose Rojas MD Work Phone: [facility] 03-14-2024 13:06-0400 Body weight 89.36 kg Jose Rojas MD Work Phone: [facility] 03-14-2024 13:06-0400 Diastolic blood pressure 84 mm[Hg] Jose Rojas MD Work Phone: [facility] [employer] 03-14-2024 13:06-0400 Heart rate 70 /min Jose Rojas MD Work Phone: [facility] [employer] 03-14-2024 13:06-0400 SaO2% (BldA) [Mass fraction] 99 % Jose Rojas MD Work Phone: [facility] [employer] 03-14-2024 13:06-0400 Systolic blood pressure 178 mm[Hg] Jose Rojas MD Work Phone: [facility] 02-27-2024 15:18-0400 Body height 162.6 cm Komal Lalit DO Work Phone: [facility] 02-27-2024 15:18-0400 Body mass index (BMI) [Ratio] 34.16 kg/m2 [place] Lalit DO Work Phone: [facility] 02-27-2024 15:18-0400 Body temperature 97.5 [degF] [place] Lalit DO Work Phone: [facility] 02-27-2024 15:18-0400 Body weight 90.27 kg Komal Lalit DO Work Phone: [facility] 02-27-2024 15:18-0400 Diastolic blood pressure 60 mm[Hg] Komal Lalit DO Work Phone: [facility] 02-27-2024 15:18-0400 Heart rate 63 /min Komal Lalit DO Work Phone: [facility] 02-27-2024 15:18-0400 SaO2% (BldA) [Mass fraction] 98 % Komal Lalit DO Work Phone: [facility] 02-27-2024 15:18-0400 Systolic blood pressure 140 mm[Hg] [place] Lalit DO Work Phone: [facility] 02-02-2024 08:00-0400 Body temperature 96.8 [degF] Surjit Sanchez MD Work Phone: [facility] [employer] 02-02-2024 08:00-0400 Diastolic blood pressure 50 mm[Hg] Surjit Sanchez MD Work Phone: [facility] 02-02-2024 08:00-0400 Heart rate 55 /min Surjit Sanchez MD Work Phone: [facility] [employer] 02-02-2024 08:00-0400 Respiratory rate 16 /min Surjit Sanchez MD Work Phone: [facility] 02-02-2024 08:00-0400 SaO2% (BldA) [Mass fraction] 92 % Surjit Sanchez MD Work Phone: [facility] 02-02-2024 08:00-0400 Systolic blood pressure 113 mm[Hg] Surjit Sanchez MD Work Phone: [facility] 01-28-2024 21:30-0400 Body mass index (BMI) [Ratio] 33.06 kg/m2 Surjit Sanchez MD Work Phone: [facility] 01-28-2024 21:30-0400 Body weight 92.9 kg Surjit Sanchez MD Work Phone: [facility] 01-28-2024 19:49-0400 Body height 167.6 cm Surjit Sanchez MD Work Phone: [facility] 01-06-2024 13:09-0400 Body height 162.6 cm [place] Lalit DO Work Phone: [facility] 01-06-2024 13:09-0400 Body mass index (BMI) [Ratio] 35.36 kg/m2 [place] Lalit DO Work Phone: [facility] 01-06-2024 13:09-0400 Body temperature 98.01 [degF] [place] Lalit DO Work Phone: [facility] 01-06-2024 13:09-0400 Body weight 93.44 kg Komal Lalit DO Work Phone: [facility] 01-06-2024 13:09-0400 Diastolic blood pressure 70 mm[Hg] Komal Lalit DO Work Phone: [facility] 01-06-2024 13:09-0400 Heart rate 61 /min [place] Lalit DO Work Phone: [facility] 01-06-2024 13:090400 SaO2% (BldA) [Mass fraction] 97 % Komal Lalit DO Work Phone: [facility] 01-06-2024 13:09-0400 Systolic blood pressure 134 mm[Hg] [place] Lalit DO Work Phone: [facility] 12-07-2023 [id number] Body height 162.6 cm Komal Lalit DO Work Phone: [facility] 12-07-2023 10:21-0400 Body mass index (BMI) [Ratio] 35.87 kg/m2 Komal Lalit DO Work Phone: [facility] 12-07-2023 [id number] Body temperature 98.2 [degF] [place] Lalit DO Work Phone: [facility] 12-07-2023 [id number] Body weight 94.8 kg Komal Lalit DO Work Phone: [facility] 12-07-2023 10:21-0400 Diastolic blood pressure 60 mm[Hg] Komal Lalit DO Work Phone: [facility] 12-07-2023 10:21-0400 Heart rate 80 /min [place] Lalit DO Work Phone: [facility] 12-07-2023 10:21-0400 SaO2% (BldA) [Mass fraction] 96 % [place] Lalit DO Work Phone: [facility] 12-07-2023 10:21-0400 Systolic blood pressure 118 mm[Hg] [place] Lalit DO Work Phone: [facility] 06-27-2023 10:51-0500 Body height 162.6 cm [place] Lalit DO Work Phone: [facility] 06-27-2023 10:51-0500 Body temperature 97.5 [degF] Komal Lalit DO Work Phone: [facility] 06-27-2023 10:51-0500 Body weight 90.72 kg Komal Lalit DO Work Phone: [facility] 06-27-2023 10:51-0500 Diastolic blood pressure 60 mm[Hg] Komal Lalit DO Work Phone: [facility] 06-27-2023 10:51-0500 Heart rate 67 /min Komal Lalit DO Work Phone: [facility] 06-27-2023 10:51-0500 SaO2% (BldA) [Mass fraction] 99 % [place] Lalit DO Work Phone: [facility] 06-27-2023 10:51-0500 Systolic blood pressure 128 mm[Hg] Komal Lalit DO Work Phone: [facility] 03-30-2023 10:44-0400 Body height 162.6 cm Jose Rojas MD Work Phone: [facility] [employer] 03-30-2023 10:44-0400 Body mass index (BMI) [Ratio] 33.88 kg/m2 Jose Rojas MD Work Phone: [facility] [employer] 03-30-2023 10:44-0400 Body weight 89.54 kg Jose Rojas MD Work Phone: [facility] [employer] 03-30-2023 10:44-0400 Diastolic blood pressure 70 mm[Hg] Jose Rojas MD Work Phone: [facility] [employer] 03-30-2023 10:44-0400 Heart rate 73 /min Jose Rojas MD Work Phone: [facility] [employer] 03-30-2023 10:44-0400 Respiratory rate 16 /min Jose Rojas MD Work Phone: [facility] [employer] 03-30-2023 10:44-0400 SaO2% (BldA) [Mass fraction] 96 % Jose Rojas MD Work Phone: [facility] 03-30-2023 10:44-0400 Systolic blood pressure 130 mm[Hg] Jose Rojas MD Work Phone: [facility] 03-14-2023 10:46-0400 Body height 162.6 cm [place] Lalit DO Work Phone: [facility] 03-14-2023 10:46-0400 Body temperature 97.59 [degF] [place] Lalit DO Work Phone: [facility] 03-14-2023 10:46-0400 Body weight 88.91 kg Komal Lalit DO Work Phone: [facility] 03-14-2023 10:46-0400 Diastolic blood pressure 68 mm[Hg] [place] Lalit DO Work Phone: [facility] 03-14-2023 10:46-0400 Heart rate 66 /min [place] Lalit DO Work Phone: [facility] 03-14-2023 10:46-0400 SaO2% (BldA) [Mass fraction] 99 % [place] Lalit DO Work Phone: [facility] 03-14-2023 10:46-0400 Systolic blood pressure 142 mm[Hg] Komal Lalit DO Work Phone: [facility] 03-07-2023 11:02-0400 Body height 162.6 cm Komal Lalit DO Work Phone: [facility] 03-07-2023 11:02-0400 Body temperature 98.2 [degF] Komal Lalit DO Work Phone: [facility] 03-07-2023 11:02-0400 Body weight 89.81 kg Komal Lalit DO Work Phone: [facility] 03-07-2023 11:02-0400 Diastolic blood pressure 60 mm[Hg] [place] Lalit DO Work Phone: [facility] 03-07-2023 11:02-0400 Heart rate 61 /min Komal Lalit DO Work Phone: [facility] 03-07-2023 11:02-0400 SaO2% (BldA) [Mass fraction] 98 % Komal Cohn DO Work Phone: [facility] 03-07-2023 11:02-0400 Systolic blood pressure 130 mm[Hg] Komal Cohn DO Work Phone: [facility] 12-08-2022 15:59-0400 Body height 165.1 cm Charley Parker 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 Work Phone: [facility] [employer] 12-08-2022 15:59-0400 Body mass index (BMI) [Ratio] 31.95 kg/m2 Charley Parker 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 Work Phone: [facility] [employer] 12-08-2022 15:59-0400 Body weight 87.09 kg Charley Parker 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 Work Phone: [facility] [employer] 11-19-2022 09:14-0400 Diastolic blood pressure 61 mm[Hg] Ajit Nesheim DO Work Phone: [facility] [employer] 11-19-2022 09:14-0400 Heart rate 64 /min Ajit Nesheim DO Work Phone: [facility] [employer] 11-19-2022 09:14-0400 Systolic blood pressure 146 mm[Hg] Ajit Nesheim DO Work Phone: [facility] [employer] 11-18-2022 19:17-0400 Body temperature 98.4 [degF] Ajit Nesheim DO Work Phone: [facility] [employer] 11-18-2022 19:17-0400 Respiratory rate 18 /min Ajit Nesheim DO Work Phone: [facility] [employer] 11-18-2022 19:17-0400 SaO2% (BldA) [Mass fraction] 99 % Ajit Nesheim DO Work Phone: [facility] [employer] 09-30-2022 11:14-0500 Body mass index (BMI) [Ratio] 31.95 kg/m2 Charley Parker 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 Work Phone: [facility] [employer] 09-30-2022 11:14-0500 Body weight 87.09 kg Charley Parker 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 Work Phone: [facility] 09-30-2022 11:14-0500 Diastolic blood pressure 70 mm[Hg] Charley Jesusk 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 Work Phone: [facility] 09-30-2022 11:14-0500 Heart rate 74 /min Charley Jesusk 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 Work Phone: [facility] 09-30-2022 11:14-0500 Respiratory rate 16 /min Charley Jesusk 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 Work Phone: [facility] 09-30-2022 11:14-0500 SaO2% (BldA) [Mass fraction] 97 % Charley Parker 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 Work Phone: [facility] 09-30-2022 11:14-0500 Systolic blood pressure 138 mm[Hg] Charley Parker 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 Work Phone: [facility] 08-16-2022 11:14-0500 Body height 162.6 cm [place] Lalit DO Work Phone: [facility] 08-16-2022 11:14-0500 Body temperature 98.2 [degF] [place] Lalit DO Work Phone: [facility] 08-16-2022 11:14-0500 Body weight 86.18 kg [place] Lalit DO Work Phone: [facility] 08-16-2022 11:14-0500 Diastolic blood pressure 62 mm[Hg] [place] Lalit DO Work Phone: [facility] 08-16-2022 11:14-0500 Heart rate 67 /min Komal Lalit DO Work Phone: [facility] 08-16-2022 11:14-0500 SaO2% (BldA) [Mass fraction] 98 % Komal Lalit DO Work Phone: [facility] 08-16-2022 11:14-0500 Systolic blood pressure 130 mm[Hg] Komal Lalit DO Work Phone: [facility] 05-03-2022 11:10-0400 Body height 162.6 cm [place] Lalit DO Work Phone: [facility] 05-03-2022 11:10-0400 Body temperature 97.81 [degF] Komal Lalit DO Work Phone: [facility] 05-03-2022 11:10-0400 Body weight 85.28 kg Komal Lalit DO Work Phone: [facility] 05-03-2022 11:10-0400 Diastolic blood pressure 58 mm[Hg] [place] Lalit DO Work Phone: [facility] 05-03-2022 11:10-0400 Heart rate 63 /min Komal Lalit DO Work Phone: [facility] 05-03-2022 11:10-0400 SaO2% (BldA) [Mass fraction] 96 % [place] Lalit DO Work Phone: [facility] 05-03-2022 11:10-0400 Systolic blood pressure 118 mm[Hg] [place] Lalit DO Work Phone: [facility] 12-22-2021 15:08-0400 Body temperature 96.21 [degF] LINWOOD Tejeda MD Work Phone: [facility] 12-22-2021 15:08-0400 Diastolic blood pressure 58 mm[Hg] LINWOOD Tejeda MD Work Phone: [facility] 12-22-2021 15:08-0400 Heart rate 67 /min LINWOOD Tejeda MD Work Phone: [facility] 12-22-2021 15:08-0400 Respiratory rate 18 /min LINWOOD Tejeda MD Work Phone: [facility] 12-22-2021 15:08-0400 SaO2% (BldA) [Mass fraction] 99 % LINWOOD Tejeda MD Work Phone: [facility] 12-22-2021 15:08-0400 Systolic blood pressure 137 mm[Hg] LINWOOD Tejeda MD Work Phone: [facility] 12-21-2021 13:11-0400 Body height 165.1 cm LINWOOD Tejeda MD Work Phone: [facility] 12-21-2021 06:28-0400 Body mass index (BMI) [Ratio] 32.57 kg/m2 LINWOOD Tejeda MD Work Phone: [facility] 12-21-2021 06:28-0400 Body weight 88.77 kg LINWOOD Tejeda MD Work Phone: [facility] 11-30-2021 13:20-0400 Body temperature 98.29 [degF] [place] Lalit DO Work Phone: [facility] 11-30-2021 13:20-0400 Body weight 89.36 kg Komal Lalit DO Work Phone: [facility] 11-30-2021 13:20-0400 Diastolic blood pressure 78 mm[Hg] Komal Lalit DO Work Phone: [facility] 11-30-2021 13:20-0400 Heart rate 67 /min Komal Lalit DO Work Phone: [facility] 11-30-2021 13:20-0400 SaO2% (BldA) [Mass fraction] 97 % Komal Lalit DO Work Phone: [facility] 11-30-2021 13:20-0400 Systolic blood pressure 142 mm[Hg] Komal Lalit DO Work Phone: [facility] 09-03-2021 14:16-0500 Body height 162.6 cm [place] Lalit DO Work Phone: [facility] 09-03-2021 14:16-0500 Body temperature 96.91 [degF] Komal Lalit DO Work Phone: [facility] 09-03-2021 14:16-0500 Body weight 89.81 kg Komal Lalit DO Work Phone: [facility] 09-03-2021 14:16-0500 Diastolic blood pressure 78 mm[Hg] Komal Lalit DO Work Phone: [facility] 09-03-2021 14:16-0500 Heart rate 86 /min [place] Lalit DO Work Phone: [facility] 09-03-2021 14:16-0500 SaO2% (BldA) [Mass fraction] 97 % Komal Lalit DO Work Phone: [facility] 09-03-2021 14:16-0500 Systolic blood pressure 144 mm[Hg] Komal Lalit DO Work Phone: [facility] 05-28-2021 13:39-0400 Body height 162.6 cm Komal Lalit DO Work Phone: [facility] 05-28-2021 13:39-0400 Body temperature 98.4 [degF] [place] Lalit DO Work Phone: [facility] 05-28-2021 13:39-0400 Body weight 90.72 kg Komal Lalit DO Work Phone: [facility] 05-28-2021 13:39-0400 Diastolic blood pressure 72 mm[Hg] Komal Lalit DO Work Phone: [facility] 05-28-2021 13:39-0400 Heart rate 78 /min [place] Lalit DO Work Phone: [facility] 05-28-2021 13:39-0400 SaO2% (BldA) [Mass fraction] 98 % [place] Lalit DO Work Phone: [facility] 05-28-2021 13:39-0400 Systolic blood pressure 130 mm[Hg] [place] Lalit DO Work Phone: [facility] 02-25-2021 11:21-0400 Diastolic blood pressure 80 mm[Hg] [place] Lalit DO Work Phone: [facility] 02-25-2021 11:21-0400 Systolic blood pressure 140 mm[Hg] Komal Lalit DO Work Phone: [facility] 02-25-2021 10:42-0400 Body height 162.6 cm [place] Lalit DO Work Phone: [facility] 02-25-2021 10:42-0400 Body temperature 97.2 [degF] [place] Lalit DO Work Phone: [facility] 02-25-2021 10:42-0400 Body weight 92.08 kg [place] Lalit DO Work Phone: [facility] 02-25-2021 10:42-0400 Heart rate 65 /min [place] Lalit DO Work Phone: [facility] 02-25-2021 10:42-0400 SaO2% (BldA) [Mass fraction] 98 % Komal Lalit DO Work Phone: [facility] 11-26-2020 11:52-0400 Diastolic blood pressure 50 mm[Hg] [place] Lalit Work Phone: [facility] 11-26-2020 11:52-0400 Systolic blood pressure 130 mm[Hg] Komal Lalit Work Phone: [facility] 11-26-2020 11:33-0400 Body height 162.6 cm [place] Lalit Work Phone: [facility] 11-26-2020 11:33-0400 Body temperature 96.21 [degF] Komal Lalit Work Phone: [facility] 11-26-2020 11:33-0400 Body weight 90.27 kg [place] Lalit Work Phone: [facility] 11-26-2020 11:33-0400 Heart rate 70 /min Komal Lalit Work Phone: [facility] 11-26-2020 11:33-0400 SaO2% (BldA) [Mass fraction] 97 % Komal Lalit Work Phone: [facility] 08-25-2019 19:19-0500 Diastolic blood pressure 78 mm[Hg] [place] Lalit DO Work Phone: [employer] Work Phone: 08-25-2019 19:19-0500 Heart rate 78 /min [place] Lalit DO Work Phone: [employer] Work Phone: 08-25-2019 19:19-0500 Respiratory rate 18 /min Komal Lalit DO Work Phone: [employer] Work Phone: 08-25-2019 19:19-0500 SaO2% (BldA) [Mass fraction] 98 % Komal Lalit DO Work Phone: [employer] Work Phone: 08-25-2019 19:19-0500 Systolic blood pressure 144 mm[Hg] Komal Lalit DO Work Phone: [employer] Work Phone: 08-25-2019 15:49-0500 Body mass index (BMI) [Ratio] 33.64 kg/m2 Komal Lalit DO Work Phone: [employer] Work Phone: 08-25-2019 15:49-0500 Body temperature 98.1 [degF] [place] Lalit DO Work Phone: [employer] Work Phone: 08-25-2019 15:49-0500 Body weight 88.91 kg Komal Lalit DO Work Phone: [employer] Work Phone: Encounters Encounter Date Encounter Type Care Provider Facility Start: 05-09-2025 End: 05-15-2025 Telephone encounter Jose Rojas MD Work Phone: [facility] [employer] Card[facility] - [place] Start: 04-24-2025 ambulatory Julieth Depdwighto OLS Facili ty:[facility] Start: 04-10-2025 ambulatory Julieth Depdwighto OLS Facili ty:[facility] Start: 03-28-2025 ambulatory Julieth Deperro OLS Facili ty:[facility] Start: 03-25-2025 End: 03-26-2025 Telephone encounter Jose Rojas MD Work Phone: [facility] Comment on above: Results (Pacemaker R emote) Start: 03-25-2025 End: [facility] Start: 03-12-2025 ambulatory Julieth Deperro OLS Facili ty:[facility] Start: 03-06-2025 End: 03-06-2025 ambulatory [facility] Start: 02-11-2025 ambulatory Julieth Deperro OLS Facili ty:[facility] Start: 02-05-2025 ambulatory Julieth Deperro OLS Facili ty:[facility] Start: 01-11-2025 End: 01-11-2025 Office outpatient visit 15 minutes Meet Madonna Poole MD Work Phone: [facility] Comment on above: Second degree heart block (Primary Dx); Essential hypertension; Cardiac pacemaker in situ Start: 01-11-2025 End: 01-11-2025 ambulatory MEET [facility] Start: 01-10-2025 ambulatory Julieth Deperro OLS Facili ty:[facility] Start: 12-25-2024 ambulatory Julieth Beno OLS Facili ty:[facility] Start: 11-29-2024 End: 11-29-2024 ambulatory [facility] Start: 11-26-2024 Registered [facility] [place] Start: 11-26-2024 End: 11-26-2024 ambulatory Julieth QURESHI Facility:[facility] Start: 11-12-2024 Registered Referred [facility] [place] Start: 11-12-2024 End: 11-12-2024 ambulatory Julieth QURESHI Facility:[facility] Start: 11-02-2024 End: 11-02-2024 ambulatory Julieth Olmedo MD [facility] Work Phone: Start: 11-02-2024 End: 11-02-2024 Departed Referred Julieth Olmedo MD -[facility] Start: 11-02-2024 Registered Referred Julieth Olmedo MD -[facility] Start: 11-02-2024 End: 11-02-2024 ambulatory Julieth QURESHI Facility:[facility] Start: 10-26-2024 End: 10-26-2024 ambulatory Julieth Olmedo MD [facility] Work Phone: Start: 10-26-2024 End: 10-26-2024 Departed Referred Julieth Olmedo MD -[facility] Start: 10-26-2024 Registered Referred Julieth Olmedo MD -[facility] Start: 10-26-2024 End: 10-26-2024 ambulatory Julieth QURESHI Facility:[facility] Start: 10-15-2024 End: 10-15-2024 ambulatory Julieth Olmedo MD [facility] Work Phone: Start: 10-15-2024 End: 10-15-2024 Departed Referred Julieth Olmedo MD -[facility] Start: 10-15-2024 Registered Referred Julieth Olmedo MD -[facility] Start: 10-15-2024 End: 10-15-2024 ambulatory Julieth QURESHI Facility:[facility] Start: 10-05-2024 End: 10-05-2024 ambulatory Julieth Olmedo MD [facility] Work Phone: Start: 10-05-2024 End: 10-05-2024 Departed Referred Julieth Olmedo MD -[facility] Start: 10-05-2024 End: 10-05-2024 ambulatory Julieth QURESHI Facility:[facility] Start: 10-01-2024 End: 10-25-2024 Telephone encounter Jose Rojas MD Work Phone: [facility] Comment on above: Med Management Start: 09-25-2024 ambulatory Julieth QURESHI Facili ty:[facility] Start: 09-25-2024 [facility] Start: 08-30-2024 End: 08-30-2024 ambulatory [facility] Start: 08-07-2024 ambulatory Julieth QURESHI Facili ty:[facility] Start: 08-07-2024 [facility] Start: 08-03-2024 End: 08-03-2024 Home visit Gogo Barbosa RN AG [facility] Comment on above: Transition Of Care ( SNF Update (Intermediate resident)) Start: 08-03-2024 End: 08-03-2024 ambulatory Gogo Barbosa RN AG [facility] Room Work[facility] Start: 08-03-2024 [facility] Start: 08-02-2024 ambulatory Julieth QURESHI Facili ty:[facility] Start: 08-02-2024 [facility] Start: 07-25-2024 ambulatory Julieth QURESHI Facili ty:[facility] Start: 07-25-2024 [facility] Start: 07-20-2024 End: 07-20-2024 [facility]ed [facility] Start: 07-19-2024 End: 07-20-2024 ambulatory Julieth QURESHI Facility:[facility] Start: 07-19-2024 [facility] Start: 07-18-2024 End: 07-18-2024 [facility]ed [facility] Start: 07-18-2024 End: 07-18-2024 ambulatory Julieth QURESHI Facility:[facility] Start: 07-17-2024 End: 07-17-2024 [facility] Start: 07-17-2024 End: 07-17-2024 ambulatory Julieth QURESHI Facility:[facility] Start: 2024 End: 2024 ambulatory Gogo Barbosa RN AG Spice Room Worker Start: 2024 End: 2024 Home visit Gogo Barbosa RN AG Spice Room Worker Comment on above: Transition Of Care ( [facility] Discharge to SNF) Start: 07-11-2024 ambulatory Julieth QURESHI Facili ty:[facility] Start: 07-11-2024 Registered Referred Julieth Olmedo MD [facility] Start: 07-10-2024 ambulatory Julieth QURESHI Facili ty:[facility] Start: 07-09-2024 ambulatory Julieth Eli ty:[facility] Start: 06-26-2024 End: 06-26-2024 Evaluation and management of inpatient [facility] Start: 06-25-2024 End: 07-04-2024 Evaluation and management of inpatient Kaiden David MD Work Phone: [facility] Cardiac Progressive Care Unit PCU 2E Start: 06-20-2024 End: 06-20-2024 ambulatory [facility] Start: 06-11-2024 End: 06-11-2024 ambulatory KOMAL COHN Facility:[facility] Start: 06-11-2024 End: 06-11-2024 Patient encounter procedure Komal Cohn DO Work Phone: [facility] Comment on above: Primary hypertension (Primary Dx); Systolic murmur; Symptomatic sinus bradycardia; CKD (chronic kidney disease) stage 4, GFR 15-29 ml/min (HCC); Class 1 obesity with body mass index (BMI) of 32.0 to 32.9 in adult, unspecified obesity type, unspecified whether serious comorbidity present Start: 06-06-2024 End: 06-06-2024 Telephone encounter Komal Mcbriderio DO Work Phone: [facility] Comment on above: Home Care Arrangemen ts Start: 06-01-2024 End: 06-01-2024 Orders Only Kyung Hogan 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 Work Phone: [facility] Cardiology [facility] Comment on above: BARRY (acute kidney in jury) (HCC) (Primary Dx) Start: 05-29-2024 End: 06-01-2024 Evaluation and management of inpatient Kimi Polk DO Work Phone: [facility] Cardiac Post Intervention Progressive Care Unit CPI PCU 4W Comment on above: Symptomatic sinus br adycardia (Primary Dx); Elevated troponin; Elevated brain natriuretic peptide (BNP) level Start: 04-27-2024 End: 04-27-2024 Patient encounter procedure [place] Maryan Cohn DO Work Phone: [facility] Comment on above: Primary hypertension (Primary Dx); Type 2 diabetes mellitus with stage 4 chronic kidney disease, without long-term current use of insulin ([facility]); CKD (chronic kidney disease) stage 4, GFR 15-29 ml/min ([facility]); Cellulitis of left lower leg; Class 1 obesity with body mass index (BMI) of 33.0 to 33.9 in adult, unspecified obesity type, unspecified whether serious comorbidity present; Bilateral leg edema; Systolic murmur; Other depression Start: 04-27-2024 End: 04-27-2024 ambulatory DAVEN[place] MARYAN MCBRIDERIO Facility:[facility] Start: 04-25-2024 End: 04-25-2024 Subsequent hospital visit by physician Le Dobson 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 Work Phone: [facility] Vascular Lab Comment on above: Chronic kidney disea se, stage 4 (severe) (HCC) Start: 04-18-2024 End: 04-18-2024 Subsequent hospital visit by physician Jose Rojas MD Work Phone: [facility] Non-Invasive Cardiology Comment on above: Coronary artery dise ase involving coronary bypass graft of [place] heart without angina pectoris; Nonrheumatic aortic valve stenosis Start: 04-12-2024 End: 04-13-2024 Refill [place] Maryan Cohn DO Work Phone: [facility] Comment on above: Refill Request Start: 04-07-2024 End: 04-10-2024 Refill Komal Cohn DO Work Phone: [facility] Comment on above: Refill Request; Medi cation Question (Citalopram) Start: 04-06-2024 End: 07-06-2024 Transcribe Orders Le Dobson 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 Work Phone: [facility] Central Scheduling Comment on above: Chronic kidney disea se, stage 4 (severe) (HCC) (Primary Dx) Start: 03-21-2024 End: 03-21-2024 Telephone encounter Jose Rojas MD Work Phone: [facility] Cardiology Comment on above: Results Start: 03-16-2024 End: 03-16-2024 Patient encounter procedure Komal Cohn DO Work Phone: [facility] [place] Comment on above: Cellulitis of left l ower leg (Primary Dx) Start: 03-16-2024 End: 03-16-2024 ambulatory KOMAL COHN Facility:[facility] Start: 03-15-2024 Telephone encounter Komal Cohn DO Work Phone: [facility] Comment on above: Orders (Handicap suad card requested ) Start: 03-14-2024 ambulatory Latonya Rosado RN AG [facility] Care Start: 03-14-2024 Home visit Latonya Rosado RN [facility] Comment on above: Transition Of Care B i-weekly phone contact (Recurring) for Transitional Care Management Start: 03-14-2024 End: 03-14-2024 Office outpatient visit 25 minutes Jose Rojas MD Work Phone: [facility] Cardiology Comment on above: Nonrheumatic aortic valve stenosis (Primary Dx); Coronary artery disease involving coronary bypass graft of [place] heart without angina pectoris Start: 02-29-2024 ambulatory Latonya Rosado RN AG [facility] Care Start: 02-29-2024 Home visit Latonya Rosado RN [facility] Comment on above: Transition Of Care B i-weekly phone contact (Recurring) for Transitional Care Management Start: 02-27-2024 End: 02-27-2024 Patient encounter procedure Komal Cohn DO Work Phone: [facility] Comment on above: Primary hypertension (Primary Dx); Cellulitis of right lower extremity; Acute cystitis without hematuria; Class 1 obesity with body mass index (BMI) of 34.0 to 34.9 in adult, unspecified obesity type, unspecified whether serious comorbidity present Start: 02-27-2024 End: 02-27-2024 ambulatory KOMAL COHN Facility:[facility] Start: 02-15-2024 ambulatory Gogo Barbosa RN Amb ulatory Care Start: 02-15-2024 Home visit Gogo Barbosa RN Amb ulatory Care Comment on above: Transition Of Care ( Discharged from [facility] to Home ) Transition Of Care ( [place] SNF 02/13/24) Initial phone contact for Transitional Care Management Start: 02-15-2024 Telephone encounter Komal Cohn DO Work Phone: [facility] Comment on above: prescription Start: 02-08-2024 ambulatory Sue Claudio RN Spice Room Worker Start: 02-08-2024 Home visit Sue Claudio RN Spice Room Worker Comment on above: Transition Of Care ( [facility]C to SNF 02/02/24) Start: 01-28-2024 End: 02-02-2024 Evaluation and management of inpatient Surjit Sanchez MD Work Phone: [facility] Medical Surgical Unit MSU 4S Comment on above: Cellulitis of right lower extremity (Primary Dx); Acute cystitis without hematuria Start: 01-26-2024 End: 01-26-2024 Subsequent hospital visit by physician Komal Cohn DO Work Phone: [facility] US Imaging Comment on above: Chronic kidney disea se, stage 4 (severe) (HCC) Start: 01-17-2024 End: 09-10-2024 Transcribe Orders oKmal Cohn DO Work Phone: [facility] Central Scheduling Comment on above: Chronic kidney disea se, stage 4 (severe) (HCC) (Primary Dx) Start: 01-06-2024 Telephone encounter Komal Cohn DO Work Phone: [facility] [place] Comment on above: Consult (Consult to nephrology, ckd chronic kidney disease state 4 gfr 15-29 confirm [id number]) Consult (Consult to ophthalmology, screening for diabetic retinopathy confirm [id number]) Start: 01-06-2024 End: 01-06-2024 Patient encounter procedure Komal Cohn DO Work Phone: [facility] [place] Comment on above: Type 2 diabetes luz [...] ml/min (HCC) Start: 01-06-2024 End: 01-06-2024 ambulatory DAVENPORT MARYAN COHN Facility:[facility] Start: 12-16-2023 Telephone encounter Komal Cohn DO Work Phone: [facility] [place] Start: 12-07-2023 End: 12-07-2023 Patient encounter procedure Komal Conh DO Work Phone: [facility] Comment on above: Dysuria (Primary Dx) ; Acute UTI; Chronic kidney disease, stage 3b (HCC); Bilateral leg edema; Other depression Start: 12-07-2023 End: 12-07-2023 [facility] Start: 12-06-2023 Refill Jose nj MD Work Phone: [facility] Cardiology Comment on above: Coronary artery dise ase involving coronary bypass graft of [place] heart without angina pectoris Start: 09-28-2023 Refill Komal calderon Lalit DO Work Phone: [facility] [place] Comment on above: Refill Request Start: 07-26-2023 Refill Komal calderon Lalit DO Work Phone: [facility] [place] Comment on above: Refill Request Start: 07-14-2023 Refill Komal Mcbriderio DO Work Phone: [facility] Comment on above: Refill Request Start: 06-29-2023 Telephone encounter Komal Cohn DO Work Phone: [facility] [place] Comment on above: Results (antibiotics ) Start: 06-27-2023 End: 06-27-2023 Patient encounter procedure Komal Cohn DO Work Phone: [facility] [place] Comment on above: Type 2 diabetes luz itus with stage 3 chronic kidney disease, without long-term current use of insulin, unspecified whether stage 3a or 3b CKD (HCC) (Primary Dx); Primary hypertension; Recurrent UTI (urinary tract infection); Heart murmur; Obesity, Class I, BMI 30-34.9 Start: 04-26-2023 Refill Komalasia calderon Lalit DO Work Phone: [facility] Comment on above: Refill Request Start: 03-30-2023 End: 03-30-2023 Office outpatient visit 25 minutes Jose Rojas MD Work Phone: [facility] Cardiology Comment on above: Nonrheumatic aortic valve stenosis (Primary Dx) Start: 03-14-2023 End: 03-14-2023 Patient encounter procedure [place] Lalit DO Work Phone: [facility] Comment on above: Bilateral leg edema (Primary Dx); Cellulitis of skin; Class 1 obesity with body mass index (BMI) of 33.0 to 33.9 in adult, unspecified obesity type, unspecified whether serious comorbidity present Start: 03-08-2023 Telephone encounter Komal Cohn DO Work Phone: [facility] [place] Comment on above: Results Start: 03-07-2023 End: 03-07-2023 Subsequent hospital visit by physician Komal Cohn DO Work Phone: [facility] Vascular Lab Comment on above: Other specified soft tissue disorders Start: 03-07-2023 End: 03-07-2023 Patient encounter procedure Komal Cohn DO Work Phone: [facility] [place] Comment on above: Urinary frequency (P rimary Dx); Right leg swelling; Cellulitis of skin; Bilateral leg edema; Class 1 obesity with body mass index (BMI) of 33.0 to 33.9 in adult, unspecified obesity type, unspecified whether serious comorbidity present Other specified soft tissue disorders (Primary Dx) Start: 03-07-2023 Refill Komal Cohn DO Work Phone: [facility] [place] Comment on above: Refill Request Start: 03-02-2023 Telephone encounter Komal Mcbriderio DO Work Phone: [facility] [place] Comment on above: Appointment Start: 02-18-2023 Refill Komal calderon Lalit DO Work Phone: [facility] [place] Comment on above: Refill Request Start: 12-13-2022 Refill Komal Mcbriderio DO Work Phone: [facility] Comment on above: Refill Request Start: 12-09-2022 Telephone encounter Charley Parker APRN - STEAM TRAP WORKER Work Phone: [facility] Cardiology Comment on above: Results (Echo) Start: 12-08-2022 End: 12-08-2022 Subsequent hospital visit by physician Charley Parker APRN - STEAM TRAP WORKER Work Phone: [facility] Non-Invasive Cardiology Comment on above: Nonrheumatic aortic valve stenosis Start: 11-22-2022 Refill [place] Gerar d Lalit DO Work Phone: [facility] Comment on above: Refill Request Start: 11-17-2022 End: 11-19-2022 Emergency department patient visit Ajit Gray DO Work Phone: [facility] CDU Comment on above: BARRY (acute kidney in jury) (CMS/HCC) (HCC) (Primary Dx); Cystitis Start: 11-10-2022 Telephone encounter Komal burnette Lalit DO Work Phone: [facility] [place] Comment on above: Patient Question Start: 10-18-2022 Refill Komal Gerar d Lalit DO Work Phone: [facility] Comment on above: Refill Request Start: 09-30-2022 End: 09-30-2022 Office outpatient visit 25 minutes Charley Parker APRN - STEAM TRAP WORKER Work Phone: [facility] Cardiology Comment on above: Nonrheumatic aortic valve stenosis (Primary Dx) Start: 09-18-2022 Refill Komal Gerar d Lalit DO Work Phone: [facility] Comment on above: Refill Request Start: 09-16-2022 Refill [place] Gerar d Lalit DO Work Phone: [facility] Comment on above: Refill Request Start: 08-23-2022 Refill [place] Gerar d Lalit DO Work Phone: [facility] [place] Comment on above: Refill Request Start: 08-19-2022 Refill Komal Cohn DO Work Phone: [facility] Comment on above: Refill Request (Charlee rtan) Start: 08-16-2022 Refill Komal Mcbriderio DO Work Phone: [facility] [place] Comment on above: Refill Request Start: 08-16-2022 End: 08-16-2022 Patient encounter procedure Komal Cohn DO Work Phone: [facility] [place] Comment on above: Primary hypertension (Primary Dx); Hyperlipidemia, mixed; Bilateral leg edema; Hypothyroidism, acquired; Acute non-recurrent maxillary sinusitis Start: 08-03-2022 ambulatory Komal Cohn DO Work Phone: [facility] Work[facility] Start: 05-03-2022 End: 05-03-2022 Patient encounter procedure Komal Cohn DO Work Phone: [facility] [place] Comment on above: Primary hypertension (Primary Dx); Hyperlipidemia, mixed; Bilateral leg edema; Type 2 diabetes mellitus without complication, without long-term current use of insulin (HCC) Start: 04-29-2022 Telephone encounter Komal Mcbriderio DO Work Phone: [facility] [place] Comment on above: Patient Question Start: 04-28-2022 Telephone encounter Komal Mcbriderio DO Work Phone: [facility] Comment on above: Patient Update Start: 04-27-2022 Telephone encounter Komal Mcbriderio DO Work Phone: [facility] [place] Comment on above: Patient Update; Orde rs Start: 04-14-2022 Telephone encounter Komal Mcbriderio DO Work Phone: [facility] [place] Comment on above: Orders (Increase las ix x 1 wk, bmp in one wk/) Start: 04-13-2022 Refill Komal calderon Lalit DO Work Phone: [facility] [place] Comment on above: Refill Request Start: 02-21-2022 Refill Komal calderon Lalit DO Work Phone: [facility] [place] Comment on above: Refill Request Start: 02-19-2022 Telephone encounter Komal Mcbriderio DO Work Phone: [facility] [place] Comment on above: Home Care Start: 01-19-2022 Telephone encounter Komal Mcbriderio DO Work Phone: [facility] Comment on above: Patient Update Start: 01-05-2022 Telephone encounter Komal Mcbriderio DO Work Phone: [facility] [place] Comment on above: Results Start: 01-01-2022 Telephone encounter Komal Mcbriderio DO Work Phone: [facility] Comment on above: Results; Orders Start: 12-24-2021 Refill Komal calderon Lalit DO Work Phone: [facility] Comment on above: Refill Request Start: 12-23-2021 Telephone encounter Komal burnette Lalit DO Work Phone: [facility] [place] Comment on above: Medication Problem Start: 12-15-2021 Refill Komal calderon Lalit DO Work Phone: [facility] Comment on above: Refill Request Start: 12-13-2021 End: 12-22-2021 Evaluation and management of inpatient J Azra Tejeda MD Work Phone: [facility] [employer] Comment on above: Altered mental statu s, unspecified altered mental status type (Primary Dx); Urinary tract infection without hematuria, site unspecified; Acute cystitis without hematuria Start: 11-30-2021 End: 11-30-2021 Patient encounter procedure Komal Cohn DO Work Phone: [facility] Comment on above: Primary hypertension (Primary Dx); Mixed hyperlipidemia; Statin intolerance; Myalgias Start: 11-20-2021 Refill [place] Gerar yumiko McbrideLalit DO Work Phone: [facility] [place] Comment on above: Refill Request Start: 09-04-2021 Refill Komalasia Cohn DO Work Phone: [facility] Comment on above: Refill Request; Refi ll Request Start: 09-04-2021 Telephone encounter Komal oChn DO Work Phone: [facility] Comment on above: Consult (Cardiology) Start: 09-03-2021 End: 09-03-2021 Patient encounter procedure Komal Cohn DO Work Phone: [facility] Comment on above: Type 2 diabetes luz itus without complication, without long- term current use of insulin (HCC) (Primary Dx); Congestive heart failure, unspecified HF chronicity, unspecified heart failure type (HCC); Hyperlipidemia, mixed; Primary hypertension; Hypothyroidism, acquired Start: 07-28-2021 Refill [place] Catyar d Lalit DO Work Phone: [facility] [place] Comment on above: Refill Request; Refi ll Request Start: 07-18-2021 Refill Komalasia Mcbriderio DO Work Phone: [facility] Comment on above: Refill Request; Refi ll Request Start: 05-28-2021 End: 05-28-2021 Patient encounter procedure Komal Cohn DO Work Phone: [facility] [place] Comment on above: Primary hypertension (Primary Dx); Hyperlipidemia, mixed; Type 2 diabetes mellitus without complication, without long-term current use of insulin (HCC) Start: 03-23-2021 End: 03-23-2021 Refill Komalasia Cohn DO Work Phone: [facility] [place] Comment on above: Refill Request Start: 02-25-2021 End: 02-25-2021 Refill [place] Cohn DO Work Phone: [facility] Comment on above: Refill Request Start: 02-25-2021 End: 02-25-2021 Patient encounter procedure Komal Cohn DO Work Phone: [facility] [place] Comment on above: Primary hypertension (Primary Dx); Type 2 diabetes mellitus without complication, without long-term current use of insulin (HCC); Generalized edema; Hypokalemia Start: 02-21-2021 End: 02-21-2021 Refill Komal Cohn DO Work Phone: [facility] [place] Comment on above: Refill Request Start: 11-26-2020 End: 11-26-2020 Patient encounter procedure Komal Cohn Work Phone: [facility] [place] Comment on above: Essential hypertensi on (Primary Dx); Type 2 diabetes mellitus without complication, without long-term current use of insulin (HCC); Seasonal allergies Start: 11-24-2020 End: 11-24-2020 Refill [place] Work Phone: [facility] [place] Comment on above: Refill Request Start: 11-05-2020 End: 11-05-2020 Refill Komal Cohn Work Phone: [facility] [place] Comment on above: Refill Request Start: 09-24-2020 End: 09-24-2020 Refill Komal Cohn Work Phone: [facility] [place] [place] Comment on above: Refill Request Start: 09-23-2020 End: 09-23-2020 Refill Komal Cohn Work Phone: [facility] [place] Comment on above: Refill Request Start: 09-23-2020 End: 09-23-2020 Telephone encounter Komal Cohn Work Phone: [facility] [place] [place] Comment on above: Results Start: 09-17-2020 End: 09-17-2020 Patient encounter procedure External Provider [facility] Start: 09-17-2020 Results Only External Provider Exter nal-NonCCF Start: 09-03-2020 End: 09-03-2020 Telephone encounter Komal Cohn Work Phone: [facility] Comment on above: Orders (PTH) Patient Question (or emmanuel for edilson chow) Start: 08-29-2020 End: 08-29-2020 Refill Komal Cohn Work Phone: [facility] [place] [place] Comment on above: Refill Request Start: 08-29-2020 End: 08-29-2020 Subsequent hospital visit by physician Komal Cohn Work Phone: [facility] Comment on above: Acute embolism [...] Clinician Start: 01-11-2025 Follow-up visit Follow-up MEET BAYRON TEL Start: 11-26-2024 SARS-CoV-2, Influenz a & RSV (PCR) Julieth Olmedo MD Start: 07-04-2024 Glucose quantitative blood xcpt reagent strip Joni Gutierrez MD Work Phone: Start: 07-04-2024 Comprehensive metabolic panel Danyell Stringer MD Work Phone: Start: 07-03-2024 Glucose [...] Work Phone: Start: 07-03-2024 Comprehensive metabolic panel Danyell Stringer MD Work Phone: Start: 07-02-2024 Glucose quantitative blood xcpt reagent strip Joni Gutierrez MD Work Phone: Start: 07-02-2024 Glucose quantitative blood xcpt reagent strip Joni Gutierrez MD Work Phone: Start: 07-02-2024 Glucose quantitative blood xcpt reagent strip Joni Gutierrez MD Work Phone: Start: 07-02-2024 Glucose quantitative blood xcpt reagent strip Joni Gutierrez MD Work Phone: Start: 07-02-2024 Comprehensive metabolic panel Danyell Stringer MD Work Phone: Start: 07-01-2024 Glucose [...] Work Phone: Start: 07-01-2024 Comprehensive metabolic panel Danyell Stringer MD Work Phone: Start: 06-30-2024 Glucose quantitative blood xcpt reagent strip Yumiko Villasenor MD Work Phone: Start: 06-30-2024 Glucose quantitative blood xcpt reagent strip Yumiko Villasenor MD Work Phone: Start: 06-30-2024 Glucose quantitative blood xcpt reagent strip Yumiko Villasenor MD Work Phone: Start: 06-30-2024 Glucose quantitative blood xcpt reagent strip Yumiko Villasenor MD Work Phone: Start: 06-30-2024 Comprehensive metabolic panel Danyell Stringer MD Work Phone: Start: 06-29-2024 Glucose quantitative blood xcpt reagent strip Yumiko Villasenor MD Work Phone: Start: 06-29-2024 Glucose quantitative blood xcpt reagent strip Yumiko Villasenor MD Work Phone: Start: 06-29-2024 Glucose quantitative blood xcpt reagent strip Yumiko Villasenor MD Work Phone: Start: 06-29-2024 Glucose quantitative blood xcpt reagent strip Danyell Stringer MD Work Phone: Start: 06-29-2024 Comprehensive metabolic panel Stephanie Georgeierno 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 Work Phone: Start: 06-29-2024 Manual Differential panel - Blood Stephanie Georgeiersee 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 Work Phone: Start: 06-28-2024 End: 06-28-2024 Blood count hematocrit Masroor Stringer M D Work Phone: Start: 06-28-2024 Blood count hematocrit Danyell Stringer MD Work Phone: Start: 06-28-2024 Blood count hematocrit Danyell Stringer MD Work Phone: Start: 06-28-2024 Glucose quantitative blood xcpt reagent strip Danyell Stringer MD Work Phone: Start: 06-28-2024 Comprehensive metabolic panel Stephanie Georgeierno 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 Work Phone: Start: 06-28-2024 Manual Differential panel - Blood Stephanie Georgeiersee 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 Work Phone: Start: 06-27-2024 End: 06-27-2024 Blood count hematocrit Masroor Stringer M D Work Phone: Start: 06-27-2024 Glucose quantitative blood xcpt reagent strip Danyell Stringer MD Work Phone: Start: 06-27-2024 Blood count hematocrit Danyell Stringer MD Work Phone: Start: 06-27-2024 Glucose quantitative blood xcpt reagent strip Danyell Stringer MD Work Phone: Start: 06-27-2024 Blood count hematocrit Danyell Stringer MD Work Phone: Start: 06-27-2024 Glucose quantitative blood xcpt reagent strip Danyell Stringer MD Work Phone: Start: 06-27-2024 Comprehensive metabolic panel Stephanie Georgeierno 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 Work Phone: Start: 06-27-2024 Manual Differential panel - Blood Stephanie Laughlin [facility] Work Phone: Start: 06-27-2024 Blood count hematocrit Danyell Stringer MD Work Phone: Start: 06-27-2024 Glucose quantitative blood xcpt reagent strip Danyell Stringer MD Work Phone: Start: 06-26-2024 Compatibility each u nit electronic Donnakhushbu Del Angel [facility] [employer] Work Phone: Start: 06-26-2024 End: 06-27-2024 TRANSFUSE RED BLOOD CELLS Donna simons [facility] Work Phone: Start: 06-26-2024 End: 06-26-2024 Blood count hematocrit Danyell Calderon Work Phone: Start: 06-26-2024 Electroencephalogram Ma cirilo Stringer MD Work Phone: Start: 06-26-2024 End: 06-26-2024 Blood count hematocrit Danyell Calderon Work Phone: Start: 06-26-2024 Radiologic exam abdomen 1 view Danyell Stringer MD Work Phone: Start: 06-26-2024 Radiologic exam ches t single view Danyell Stringer MD Work Phone: Start: 06-26-2024 Comprehensive metabolic panel Danyell Stringer MD Work Phone: Start: 06-26-2024 Blood gases any comb ination ph pco2 po2 co2 hco3 Danyell Stringer MD Work Phone: Start: 06-26-2024 Antibody screen CALEB COHN Comment on above: Performed By: #### L [id number] ####Attendant Campground: RUTH ANN PEOPLES ([phone])[facility] ([facility])[address] Start: 06-26-2024 Antibody screen rbc each serum technique Erinn Keri BRUNNER Work Phone: Start: 06-26-2024 Ct abdomen & [...] Radiologic exam ches t single view Lawson Melvin PA-C Work Phone: Start: 06-25-2024 HC SARSCOV2&INF A&B& [...] Otfrtasha Marie MD Work Phone: Start: 06-01-2024 Radiologic exam chest 2 views Kyung Hope Missael 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 Work Phone: Start: 06-01-2024 Glucose quantitative blood xcpt reagent strip Damien Marie MD Work Phone: Start: 06-01-2024 Basic metabolic pane l calcium total Louise Garza MD Work Phone: Start: 06-01-2024 Ecg routine ecg w/le ast 12 lds trcg only w/o i&r Surjit Calero DO Work Phone: Start: 05-31-2024 Glucose quantitative blood xcpt reagent strip Otseth Marie MD Work Phone: Start: 05-31-2024 Glucose quantitative blood xcpt reagent strip Damien Marie MD Work Phone: Start: 05-31-2024 Ecg routine ecg w/le ast 12 lds trcg only w/o i&r Pravin Poole MD Work Phone: Start: 05-31-2024 Electrophysiology study Kyung Jayy Hogan 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 Work Phone: Start: 05-31-2024 Glucose quantitative blood xcpt reagent strip Damien Marie MD Work Phone: Start: 05-31-2024 Glucose quantitative blood xcpt reagent strip Damien Marie MD Work Phone: Start: 05-31-2024 Ecg routine ecg w/le ast 12 lds trcg only w/o i&r Surjit Shaub DO Work Phone: Start: 05-31-2024 Basic metabolic pane l calcium total Louise Garza MD Work Phone: Start: 05-30-2024 Assay of thyroid sti mulating hormone tsh Surjit Calero DO Work Phone: Start: 05-30-2024 Glucose quantitative blood xcpt reagent strip Damien Marie MD Work Phone: Start: 05-30-2024 Glucose quantitative blood xcpt reagent strip Louise Garza MD Work Phone: Start: 05-30-2024 Glucose quantitative blood xcpt reagent strip Louise Garza MD Work Phone: Start: 05-30-2024 Glucose quantitative blood xcpt reagent strip Louise Garza MD Work Phone: Start: 05-30-2024 Thyrotropin [Units/v olume] in Serum or Plasma Kyung Hogan 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 Work Phone: Start: 05-30-2024 Assay of troponin quantitative Lakeisha Davis Carter PA-C Work Phone: Start: 05-29-2024 End: 05-29-2024 Assay of troponin quantitative Lakeisha Milleren PA-C Work Phone: Start: 05-29-2024 Radiologic exam ches t single view Lakeisha Davis Carter PA-C Work Phone: Start: 05-29-2024 SARS-COV-2, FLU A/B, AND RSV COMBO Lakeisha Davis Carter PA-C Work Phone: Start: 05-29-2024 Basic metabolic pane l calcium total Lakeisha Lagunasuyen PA-C Work Phone: Start: 05-29-2024 Ecg routine ecg w/le ast 12 lds trcg only w/o i&r Lakeisha Lagunasuyen PA-C Work Phone: Start: 04-25-2024 Dup-scan artl ld abdl/pel/scrot&/rpr orgn com Le Deal Zaynabgiovanni 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 Work Phone: Start: 04-18-2024 [facility] w/ wom-mode compl spec&colr d Jose Rojas MD Work Phone: Start: 02-02-2024 Glucose quantitative [...] Phone: Start: 01-31-2024 Comprehensive metabolic panel Shemar Regalaod DO Work Phone: Start: 01-31-2024 Manual Differential [...] 01-29-2024 End: 01-29-2024 Chloride urine Le 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 Work Phone: Start: 01-29-2024 Glucose quantitative blood [...] Phone: Start: 01-06-2024 Hemoglobin A1c/Hemoglobin.total in Blood [facility] Work Phone: Start: 12-07-2023 Urnls dip stick/tabl et rgnt auto w/o microscopy [facility] Work Phone: Start: 06-27-2023 Culture bacterial qu anttative colony count urine [place] Maryan Cohn DO Work Phone: Start: 06-27-2023 Urnls dip stick/tabl et rgnt auto w/o microscopy [facility] Work Phone: Start: 06-27-2023 Hemoglobin A1c/Hemoglobin.total in Blood [place] Maryan Cohn DO Work Phone: Start: 03-07-2023 Dup-scan xtr veins unilateral/limited study [facility] DO Work Phone: Start: 03-07-2023 Urnls dip stick/tabl et rgnt auto w/o microscopy [place] Maryan Cohn DO Work Phone: Start: 12-08-2022 Echo tthrc r-t 2d w/ wom-mode compl spec&colr d Charley Parker [facility] Work Phone: Start: 11-19-2022 Glucose quantitative blood xcpt reagent strip Pola Henderson MD Work Phone: Start: 11-19-2022 Glucose quantitative blood xcpt reagent strip Pola Henderson MD Work Phone: Start: 11-19-2022 Comprehensive metabolic panel Katherine Donato [facility] Work Phone: Start: 11-19-2022 Manual differential performed [Presence] in Blood Katherine Donato [facility] Work Phone: Start: 11-18-2022 Glucose quantitative blood xcpt reagent strip Pola Henderson MD Work Phone: Start: 11-18-2022 Glucose quantitative blood xcpt reagent strip Pola Henderson MD Work Phone: Start: 11-18-2022 Glucose quantitative blood xcpt reagent strip Pola Henderson MD Work Phone: Start: 11-18-2022 Basic metabolic pane l calcium total Jessica K Davidter [facility] [facility] Work Phone: Start: 11-18-2022 SARS-COV-2, FLU A/B, AND RSV COMBO Ajit Jg Gray DO Work Phone: Start: 11-18-2022 Bacteria identified in Blood by Culture Ajit Jg Gray DO Work Phone: Start: 11-18-2022 Comprehensive metabolic panel Ajit Gregorio Ronna DO Work Phone: Start: 11-17-2022 Radiologic exam ches t single view Ajitsuzy Gray DO Work Phone: Start: 11-17-2022 Culture bacterial qu anttative colony count urine Ajit Gray DO Work Phone: Start: 11-17-2022 Urinalysis complete panel - Urine Krunal Alford DO Work Phone: Start: 11-17-2022 Glucose quantitative blood xcpt reagent strip Ajit Gray DO Work Phone: Start: 08-25-2022 Thyrotropin [Units/v olume] in Serum or Plasma Charley Elena 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 Work Phone: Start: 12-22-2021 Gluc bld gluc [...] O2 EVAL (DESATU RATION SCREEN) Sue Tripathi 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 Work Phone: Start: 12-21-2021 Gluc bld gluc [...] ev cleared fda spec home use Terence oGnzalez MD Work Phone: Start: 12-20-2021 Drug screen [...] d ev cleared fda spec home use Teernce Gonzalez MD Work Phone: Start: 12-17-2021 Gluc [...] Phone: Start: 12-16-2021 Assay of magnesium Zenaidam od Lisa BRUNNER Work Phone: Start: 12-15-2021 Gluc bld gluc [...] Phone: Start: 12-13-2021 CULTURE, BLOOD 1 Linda Tejdea MD Work Phone: Start: 12-13-2021 ADD ON LAB TEST Linda Tejeda MD Work Phone: Start: 12-13-2021 Ct head/brain w/o co ntrast material Linda Tejeda MD Work Phone: Start: 12-13-2021 Basic metabolic pane l calcium total Linda Tejeda MD Work Phone: Start: 12-13-2021 Culture bacterial qu anttative colony count urine Linda Tejeda MD Work Phone: Start: 12-13-2021 Urnls dip stick/tabl et rgnt auto w/o microscopy Linda Tejeda MD Work Phone: Start: 09-03-2021 Adult depression scr eening assessment Komal Cohn DO Work Phone: Start: 09-17-2020 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 Start: 08-29-2020 Dup-scan xtr veins unilateral/limited study Komal Cohn Work Phone: Start: 08-28-2020 Adult depression scr eening assessment Komal Lalit Start: 08-25-2019 Ct head/brain w/o co ntrast material Melanie Padilla PA-C Work Phone: Start: 08-25-2019 Radiologic exam ches t single view Melanie Padilla PA-C Work Phone: Start: 08-25-2019 Radiologic examinati on knee 3 views Melanie Padilla PA-C Work Phone: Plan of Treatment Date Care Activity Detail Author Start: 03-28-2026 Creatinine measurement Creatinine Level [facility] Start: 03-28-2026 Potassium measurement Potassium Level [facility] Start: 08-21-2025 End: 08-21-2025 Patient encounter procedure 08/21/2025 3:20 PM EST Office Visit [facility] [address] [place] [phone] Jose Rojas MD [address] [place] [address] [facility] Start: 07-04-2025 Complete blood count Hemoglobin/Hematocrit [facility] Start: 07-04-2025 Creatinine measurement [facility] Start: 07-04-2025 Diabetes: Estimated Glomerular Filtration Rate for Kidney Health Diabetes: Estimated Glomerular Filtration Rate for Kidney Health [facility] Start: 07-04-2025 Potassium measurement [facility] Start: 07-04-2025 [facility] Start: 06-11-2025 Annual PCP Team Chronic Disease Visit Annual PCP Team Chronic Disease Visit [facility] Start: 06-06-2025 End: 06-06-2025 Professional / ancillary services management 06/06/2025 11:30 AM EDT Ancillary Procedure [facility] [address] [place] [address] [facility] Start: 06-01-2025 Complete blood count Hemoglobin/Hematocrit [facility] Start: 06-01-2025 Creatinine measurement [facility] Start: 06-01-2025 Potassium measurement Potassium Level [facility] Start: 05-30-2025 Thyroid stimulating hormone measurement TSH Level [facility] Start: 05-15-2025 End: 05-15-2025 Patient encounter procedure 05/15/2025 11:20 AM EDT Office Visit [facility] [address] [place] [address] Jose Rojas MD [address] [place] [address] [facility] Start: 04-27-2025 Annual PCP Team Chronic Disease Visit Annual PCP Team Chronic Disease Visit [facility] Start: 04-18-2025 Echocardiography Echocardiogram [facility] Start: 04-18-2025 [facility] Start: 04-10-2025 End: 03-26-2026 CBC W Auto Differential panel - Blood CBC auto differential Lab Routine Essential hypertension Second degree heart block Expected: 04/10/2025 (Approximate), Expires: 03/26/2026 [facility] Comment on above: Expected: 04/10/2025 (Approximate), Expi res: 03/26/2026 Start: 04-08-2025 COVID-19 Vaccine ( season) COVID-19 Vaccine () [facility] Start: 04-08-2025 Influenza vaccination [facility] Start: 03-27-2025 End: 03-27-2025 ambulatory [facility] Start: 03-27-2025 End: 03-27-2025 Patient encounter procedure [facility] Start: 03-26-2025 End: 03-26-2026 Comprehensive metabolic 1998 panel - Serum or Plasma Comprehensive metabolic panel Lab Routine Essential hypertension Second degree heart block Expected: 03/26/2025 (Approximate), Expires: 03/26/2026 [facility] Work Phone: Comment on above: Expected: 03/26/2025 (Approximate), Expi res: 03/26/2026 Start: 03-26-2025 Creatinine measurement [facility] Start: 03-26-2025 Potassium measurement Potassium Level [facility] Start: 03-20-2025 Creatinine measurement Creatinine Level [facility] Start: 03-20-2025 Potassium measurement Potassium Level [facility] Start: 03-16-2025 Annual PCP Team Chronic Disease Visit Annual PCP Team Chronic Disease Visit [facility] Start: 03-16-2025 BP Controlled (<130/80) BP Controlled (<130/80) [facility] Start: 03-06-2025 End: 03-06-2025 Professional / ancillary services management 03/06/2025 3:00 PM EDT Ancillary Procedure [facility] [employer] [facility] [place] [address] [place] [address] [facility] [employer] [facility] [place] Start: 02-26-2025 Annual PCP Team Chronic Disease Visit Annual PCP Team Chronic Disease Visit [facility] Start: 02-01-2025 Complete blood count Hemoglobin/Hematocrit [facility] Start: 02-01-2025 Creatinine measurement [facility] Start: 02-01-2025 Potassium measurement Potassium Level [facility] Start: 01-28-2025 Diabetes: Urine Albumin-Creatinine Ratio for Kidney Health Diabetes: Urine Albumin-Creatinine Ratio for Kidney Health [facility] Start: 01-28-2025 [facility] Start: 01-05-2025 Annual PCP Team Chronic Disease Visit Annual PCP Team Chronic Disease Visit [facility] Start: 01-05-2025 Diabetic foot examination Diabetic Foot Exam [facility] Start: 12-13-2024 Creatinine measurement Serum Creatinine [facility] Start: 12-06-2024 Annual PCP Team Chronic Disease Visit Annual PCP Team Chronic Disease Visit [facility] Start: 12-06-2024 BP Controlled (<130/80) BP Controlled (<130/80) [facility] Start: 11-29-2024 End: 11-29-2024 Professional / ancillary services management 11/29/2024 1:00 PM EDT Ancillary Procedure [facility] [employer] [facility] [place] [address] [place] [phone] [facility] [employer] [facility] [place] Start: 11-16-2024 End: 11-16-2024 Patient encounter procedure 11/16/2024 3:00 PM EDT Office Visit [facility] [place] [address] [place] [phone] Pravin Poole MD [address] [place] [address] [facility] [place] Start: 08-31-2024 End: 08-31-2024 ambulatory [facility] [place] Start: 08-31-2024 End: 08-31-2024 Patient encounter procedure 08/31/2024 1:15 PM EST Office Visit [facility] [place] [address] [place] [phone] Pravin Poole MD [address] [place] [address] [facility] [place] Start: 08-30-2024 End: 08-30-2024 ambulatory [facility] Start: 08-30-2024 End: 08-30-2024 Professional / ancillary services management 08/30/2024 9:00 AM EST Ancillary Procedure [facility] [place] [address] [place] [phone] [facility] [place] Start: 08-08-2024 Medicare Advantage Annual Wellness Visit Medicare Advantage Annual Wellness Visit [facility] Start: 07-29-2024 Hemoglobin A1c measurement HbA1C [facility] Start: 07-20-2024 End: 07-20-2024 Patient encounter procedure 07/20/2024 2:15 PM EST Office Visit [facility] [place] [address] [place] [address] Komal Cohn DO [address] [place] [address] f/u 3 months [facility] [place] Comment on above: f/u 3 months Start: 07-07-2024 Hemoglobin A1c measurement HbA1C [facility] Start: 06-27-2024 Annual PCP Team Chronic Disease Visit Annual PCP Team Chronic Disease Visit [facility] Start: 06-27-2024 BP Controlled (<130/80) BP Controlled (<130/80) [facility] Start: 06-20-2024 End: 06-20-2024 Professional / ancillary services management 06/20/2024 1:00 PM EST Ancillary Procedure [facility] [address] [place] [address] [facility] Start: 06-11-2024 End: 06-11-2024 Patient encounter procedure 06/11/2024 1:00 PM EST Office Visit [facility] [address] [place] [address] Komal Cohn DO [address] [place], [place] [id number] hosp fu [facility] Comment on above: hosp fu Start: 06-01-2024 End: 06-01-2025 Basic metabolic 1998 panel - Serum or Plasma Basic metabolic panel Lab Routine BARRY (acute kidney injury) (HCC) Expected: 06/01/2024 (Approximate), Expires: 06/01/2025 [facility] Work Phone: Comment on above: Expected: 06/01/2024 (Approximate), Expi res: 06/01/2025 Start: 04-27-2024 End: 04-27-2024 Patient encounter procedure 04/27/2024 4:15 PM EDT Office Visit [facility] [address] [place] [address] Komal Cohn DO [address] [place] [id number] 3 mos ck up [facility] Comment on above: 3 mos ck up Start: 04-25-2024 End: 04-25-2024 Patient encounter procedure [facility] Start: 04-18-2024 End: 04-18-2024 Patient encounter procedure 04/18/2024 1:00 PM EDT Appointment [facility] [address] [place] [phone] Jose Rojas MD [address] [place] [address] [facility] Non-Invasive Cardiology Start: 04-13-2024 End: 04-13-2024 Patient encounter procedure 04/13/2024 4:00 PM EDT Office Visit [facility] [address] [place] [address] Komal Cohn, DO [address] [place] [address] 3 mos ck up [facility] Comment on above: 3 mos ck up Start: 04-08-2024 Covid-19 Vaccine ( season) Covid-19 Vaccine ( season) [facility] Start: 04-08-2024 Covid-19 Vaccine ( season) Covid-19 Vaccine ( season) [facility] Start: 04-08-2024 Influenza vaccination [facility] Start: 04-08-2024 [facility] Start: 04-06-2024 End: 04-06-2024 Patient encounter procedure 04/06/2024 11:00 AM EDT Office Visit [facility] [address] [place] [address] Komal Cohn, DO [address] [place] [address] f/u 3 months [facility] Comment on above: f/u 3 months Start: 04-04-2024 End: 04-04-2024 Patient encounter procedure 04/04/2024 1:00 PM EDT Appointment [facility] Non-Invasive Cardiology [address] [place] [phone] [facility] Non-Invasive Cardiology Start: 03-26-2024 End: 03-21-2025 Basic metabolic 1998 panel - Serum or Plasma Basic metabolic panel Lab Routine Nonrheumatic aortic valve stenosis Acute renal failure superimposed on stage 4 chronic kidney disease, unspecified acute renal failure type (HCC) Expected: 03/26/2024 (Approximate), Expires: 03/21/2025 [facility] Work Phone: Comment on above: Expected: 03/26/2024 (Approximate), Expi res: 03/21/2025 Start: 03-19-2024 End: 03-14-2025 Basic metabolic 1998 panel - Serum or Plasma Basic metabolic panel Lab Routine Coronary artery disease involving coronary bypass graft of [place] heart without angina pectoris Nonrheumatic aortic valve stenosis Expected: 03/19/2024 (Approximate), Expires: 03/14/2025 [facility] Comment on above: Expected: 03/19/2024 (Approximate), Expi res: 03/14/2025 Start: 03-16-2024 End: 03-16-2024 Patient encounter procedure 03/16/2024 3:15 [place] [address] [place] [address] cellulites [facility] Comment on above: stanley Start: 03-14-2024 ANNUAL PCP TEAM CHRONIC DISEASE VISIT ANNUAL PCP TEAM CHRONIC DISEASE VISIT [facility] Start: 03-14-2024 End: 03-14-2026 US Heart Transthoracic Transthoracic echocardiogram (TTE) complete with contrast, bubble, strain, and 3D PRN CV Echocardiography Routine Coronary artery disease involving coronary bypass graft of [place] heart without angina pectoris Nonrheumatic aortic valve stenosis Expected: 03/14/2024 (Approximate), Expires: 03/14/2026 [facility] [employer] Comment on above: Expected: 03/14/2024 (Approximate), Expi res: 03/14/2026 Start: 03-07-2024 ANNUAL PCP TEAM CHRONIC DISEASE VISIT ANNUAL PCP TEAM CHRONIC DISEASE VISIT [facility] Start: 03-07-2024 End: 03-07-2024 Patient encounter procedure 03/07/2024 10:20 AM EDT Office Visit [facility] [address] [place] [id number] Jose Rojas MD [address] [place] [address] [facility] Start: 02-27-2024 End: 02-27-2024 Patient encounter procedure 02/27/2024 3:15 PM EDT Office Visit [facility] [address] [place] [address] Komal Cohn, DO [address] [place] [id number] TCM [facility] Comment on above: TCM Start: 01-06-2024 End: 04-06-2024 Basic metabolic 2000 panel - Serum or Plasma BASIC METABOLIC PANEL Lab Routine CKD (chronic kidney disease) stage 4, GFR 15-29 ml/min ([facility]) Expected: 01/06/2024, Expires: 04/06/2024 [facility] Comment on above: Expected: 01/06/2024, Expires: Start: 01-06-2024 End: 01-06-2024 Patient encounter procedure 01/06/2024 1:00 PM EDT Office Visit [facility] [address] [place] [address] Komal Cohn, DO [address] [place] [address] [id number] 4 week f/u [facility] Comment on above: 4 week f/u Start: 12-26-2023 Hemoglobin A1c measurement HbA1C [facility] Start: 12-26-2023 Hemoglobin A1c/Hemoglobin.total in Blood HbA1C [facility] Start: 12-14-2023 ANNUAL PCP TEAM CHRONIC DISEASE VISIT ANNUAL PCP TEAM CHRONIC DISEASE VISIT [facility] Start: 12-14-2023 End: 03-14-2024 Basic metabolic 2000 panel - Serum or Plasma BASIC METABOLIC PANEL Lab Routine Bilateral leg edema Expected: 12/14/2023, Expires: 03/14/2024 [facility] Comment on above: Expected: 12/14/2023, Expires: Start: 12-09-2023 Echocardiography Echocardiogram [facility] Start: 12-03-2023 Complete blood count Hemoglobin/Hematocrit [facility] Start: 12-03-2023 Creatinine measurement Serum Creatinine [facility] Start: 12-03-2023 HEMOGLOBIN/HEMATOCRIT HEMOGLOBIN/HEMATOCRIT [facility] Start: 12-03-2023 SERUM CREATININE SERUM CREATININE [facility] Start: 11-23-2023 ANNUAL PCP TEAM CHRONIC DISEASE VISIT ANNUAL PCP TEAM CHRONIC DISEASE VISIT [facility] Start: 11-23-2023 BP CONTROLLED (<130/80) BP CONTROLLED (<130/80) [facility] in Start: 11-20-2023 Creatinine measurement Creatinine Level [facility] Start: 11-20-2023 Potassium measurement Potassium Level [facility] Start: 08-25-2023 HEMOGLOBIN/HEMATOCRIT HEMOGLOBIN/HEMATOCRIT [facility] Start: 08-25-2023 Hepatitis B surface antibody level LDL CHOLESTEROL [facility] Start: 08-25-2023 SERUM CREATININE SERUM CREATININE [facility] Start: 08-25-2023 Thyroid stimulating hormone measurement TSH Level [facility] Start: 08-16-2023 ANNUAL PCP TEAM CHRONIC DISEASE VISIT ANNUAL PCP TEAM CHRONIC DISEASE VISIT [facility] Start: 08-08-2023 Advance Directive Discussion Advance Directive Discussion [facility] Start: 08-08-2023 Depression Assessment Depression Assessment [facility] Start: 08-08-2023 Medicare [facility] Annual Wellness Visit Medicare [employer] Annual Wellness Visit [facility] Start: 08-08-2023 [facility] Start: 06-29-2023 End: 09-28-2023 Bacteria identified in Urine by Culture URINE CULTURE Microbiology Routine Recurrent UTI (urinary tract infection) Expected: 06/29/2023, Expires: 09/28/2023 [facility] Work Phone: Comment on above: Expected: 06/29/2023, Expires: 4 Start: 06-27-2023 End: 09-26-2023 Bacteria identified in Urine by Culture URINE CULTURE Microbiology Routine Recurrent UTI (urinary tract infection) Expected: 06/27/2023, Expires: 09/26/2023 [facility] Work Phone: Comment on above: Expected: 06/27/2023, Expires: Start: 05-24-2023 Hemoglobin A1c/Hemoglobin.total in Blood HBA1C [facility] Start: 05-03-2023 ANNUAL PCP TEAM CHRONIC DISEASE VISIT ANNUAL PCP TEAM CHRONIC DISEASE VISIT [facility] Start: 05-03-2023 BP CONTROLLED (<130/80) BP CONTROLLED (<130/80) [facility] Start: 04-08-2023 Covid-19 Vaccine () Covid-19 Vaccine () [facility] Start: 04-08-[address] [facility] Start: 03-30-2023 End: 03-30-2023 Patient encounter procedure [facility] Start: 03-22-2023 Glaucoma screening Diabetes: Retinopathy Screening [facility] Start: 01-18-2023 ANNUAL PCP TEAM CHRONIC DISEASE VISIT ANNUAL PCP TEAM CHRONIC DISEASE VISIT [facility] Start: 01-18-2023 BP CONTROLLED (<130/80) BP CONTROLLED (<130/80) [facility] Start: 12-28-2022 Lipid panel Lipid screen [place], [place] Start: 12-28-2022 Lipid screen Lipid screen [facility] Work Phone: Start: 12-18-2022 Creatinine measurement Creatinine Level [facility] Start: 12-18-2022 Potassium measurement Potassium Level [facility] Start: 12-08-2022 End: 12-08-2022 Patient encounter procedure [facility] [employer] Start: 11-30-2022 ANNUAL PCP TEAM CHRONIC DISEASE VISIT ANNUAL PCP TEAM CHRONIC DISEASE VISIT [facility] Start: 10-31-2022 Hemoglobin A1c/Hemoglobin.total in Blood HBA1C [facility] Start: 09-30-2022 End: 09-30-2024 US Heart Transthoracic Transthoracic echocardiogram (TTE) complete with contrast, bubble, strain, and 3D PRN CV Echocardiography Routine Nonrheumatic aortic valve stenosis Expected: 09/30/2022 (Approximate), Expires: 09/30/2024 [facility] Work Phone: Comment on above: Expected: 09/30/2022 (Approximate), Expi res: 09/30/2024 Start: 09-21-2022 Glaucoma screening Diabetes: Retinopathy Screening [facility] Start: 09-16-2022 Hepatitis B surface antibody level LDL CHOLESTEROL [facility] Start: 09-03-2022 Adult depression screening assessment DEPRESSION SCREENING [facility] Start: 09-03-2022 ANNUAL PCP TEAM CHRONIC DISEASE VISIT ANNUAL PCP TEAM CHRONIC DISEASE VISIT [facility] Start: 08-16-2022 End: 10-16-2022 CBC W Auto Differential panel - Blood CBC + DIFF Lab Routine Hyperlipidemia, mixed Expected: 08/16/2022, Expires: 10/16/2022 [facility] Work Phone: Comment on above: Expected: 08/16/2022, Expires: 3 Start: 08-16-2022 End: 10-16-2022 Comprehensive metabolic 2000 panel - Serum or Plasma COMP METABOLIC PANEL Lab Routine Hyperlipidemia, mixed Expected: 08/16/2022, Expires: 10/16/2022 [facility] Work Phone: Comment on above: Expected: 08/16/2022, Expires: 3 Start: 08-16-2022 End: 10-16-2022 Lipid 1996 panel - Serum or Plasma LIPID PANEL BASIC Lab Routine Hyperlipidemia, mixed Expected: 08/16/2022, Expires: 10/16/2022 [facility] Work Phone: Comment on above: Expected: 08/16/2022, Expires: 3 Start: 08-16-2022 End: 10-16-2022 Thyrotropin [Units/volume] in Serum or Plasma TSH BLD Lab Routine Hypothyroidism, acquired Expected: 08/16/2022, Expires: 10/16/2022 [facility] Work Phone: Comment on above: Expected: 08/16/2022, Expires: 3 Start: 08-16-2022 End: 10-16-2022 Urinalysis complete panel - Urine URINALYSIS, WITH MICROSCOPIC Lab Routine Hyperlipidemia, mixed Expected: 08/16/2022, Expires: 10/16/2022 [facility] Work Phone: Comment on above: Expected: 08/16/2022, Expires: 3 Start: 08-08-2022 ADVANCE DIRECTIVE DISCUSSION ADVANCE DIRECTIVE DISCUSSION [facility] Start: 08-08-2022 DEPRESSION ASSESSMENT DEPRESSION ASSESSMENT [facility] Start: 08-03-2022 End: 10-03-2022 ALBUMIN/CREAT RATIO RND UR ALBUMIN/CREAT RATIO RND UR Lab Routine Diabetes (HCC) Expected: 08/03/2022, Expires: 10/03/2022 [facility] Work Phone: Comment on above: Expected: 08/03/2022, Expires: 3 Start: 08-03-2022 End: 10-03-2022 CBC panel - Blood by Automated count CBC Lab Routine Diabetes (HCC) Expected: 08/03/2022, Expires: 10/03/2022 [facility] Work Phone: Comment on above: Expected: 08/03/2022, Expires: 3 Start: 08-03-2022 End: 10-03-2022 SCHEDULE LAB TESTING SCHEDULE LAB TESTING Lab Routine Expected: 08/03/2022, Expires: 10/03/2022 [facility] Work Phone: Comment on above: Expected: 08/03/2022, Expires: 3 Start: 08-03-2022 End: 10-03-2022 Thyrotropin [Units/volume] in Serum or Plasma TSH BLD Lab Routine Hypothyroidism, acquired Expected: 08/03/2022, Expires: 10/03/2022 [facility] Work Phone: Comment on above: Expected: 08/03/2022, Expires: 3 Start: 05-28-2022 ANNUAL PCP TEAM CHRONIC DISEASE VISIT ANNUAL PCP TEAM CHRONIC DISEASE VISIT [facility] Start: 05-11-2022 End: 07-11-2022 Basic metabolic 2000 panel - Serum or Plasma BASIC METABOLIC PNL Lab Routine CKD (chronic kidney disease) stage 1, GFR 90 ml/min or greater Expected: 05/11/2022, Expires: 07/11/2022 [facility] Work Phone: Comment on above: Expected: 05/11/2022, Expires: 2 Start: 04-26-2022 End: 06-26-2022 Basic metabolic 2000 panel - Serum or Plasma BASIC METABOLIC PNL Lab Routine Hypokalemia Expected: 04/26/2022, Expires: 06/26/2022 [facility] Work Phone: Comment on above: Expected: 04/26/2022, Expires: 2 Start: 04-08-[address] [facility] Start: 03-16-2022 Hemoglobin A1c/Hemoglobin.total in Blood HBA1C [facility] Start: 02-25-2022 ANNUAL PCP TEAM CHRONIC DISEASE VISIT ANNUAL PCP TEAM CHRONIC DISEASE VISIT [facility] Start: 01-01-2022 End: 03-03-2022 CBC W Auto Differential panel - Blood CBC + DIFF Lab Routine Anemia, unspecified type Expected: 01/01/2022, Expires: 03/03/2022 [facility] Work Phone: Comment on above: Expected: 01/01/2022, Expires: 2 Start: 01-01-2022 End: 03-03-2022 Cobalamin (Vitamin B12) [Mass/volume] in Serum or Plasma VITAMIN B12 BLOOD Lab Routine Anemia, unspecified type Expected: 01/01/2022, Expires: 03/03/2022 [facility] Work Phone: Comment on above: Expected: 01/01/2022, Expires: 2 Start: 01-01-2022 End: 03-03-2022 Ferritin [Mass/volume] in Serum or Plasma FERRITIN BLD Lab Routine Anemia, unspecified type Expected: 01/01/2022, Expires: 03/03/2022 [facility] Work Phone: Comment on above: Expected: 01/01/2022, Expires: 2 Start: 01-01-2022 End: 03-03-2022 Folate [Mass/volume] in Serum or Plasma FOLATE SERUM Lab Routine Anemia, unspecified type Expected: 01/01/2022, Expires: 03/03/2022 [facility] Work Phone: Comment on above: Expected: 01/01/2022, Expires: 2 Start: 01-01-2022 End: 03-03-2022 Iron and Iron binding capacity panel - Serum or Plasma IRON + TIBC Lab Routine Anemia, unspecified type Expected: 01/01/2022, Expires: 03/03/2022 [facility] Work Phone: Comment on above: Expected: 01/01/2022, Expires: 2 Start: 01-01-2022 End: 03-03-2022 RETIC COUNT RETIC COUNT Lab Routine Anemia, unspecified type Expected: 01/01/2022, Expires: 03/03/2022 [facility] Work Phone: Comment on above: Expected: 01/01/2022, Expires: 2 Start: 12-29-2021 End: 12-22-2022 CBC panel - Blood by Automated count CBC Lab Routine Acute cystitis without hematuria Expected: 12/29/2021, Expires: 12/22/2022 [email or web address] Work Phone: Comment on above: Expected: 12/29/2021, Expires: 3 Start: 12-29-2021 End: 12-22-2022 Comprehensive metabolic 2000 panel - Serum or Plasma Comprehensive Metabolic Panel Lab Routine Altered mental status, unspecified altered mental status type Expected: 12/29/2021, Expires: 12/22/2022 [facility] Work Phone: Comment on above: Expected: 12/29/2021, Expires: 3 Start: 11-26-2021 ANNUAL PCP TEAM CHRONIC DISEASE VISIT ANNUAL PCP TEAM CHRONIC DISEASE VISIT [facility] Start: 09-03-2021 End: 09-03-2022 CBC W Auto Differential panel - Blood CBC + DIFF Lab Routine Hyperlipidemia, mixed Expected: 09/03/2021, Expires: 09/03/2022 [facility] Work Phone: Comment on above: Expected: 09/03/2021, Expires: 3 Start: 09-03-2021 End: 09-03-2022 Comprehensive metabolic 2000 panel - Serum or Plasma COMP METABOLIC PANEL Lab Routine Hyperlipidemia, mixed Expected: 09/03/2021, Expires: 09/03/2022 [facility] Work Phone: Comment on above: Expected: 09/03/2021, Expires: 3 Start: 09-03-2021 End: 09-03-2022 Hemoglobin A1c/Hemoglobin.total in Blood HGB A1C Lab Routine Type 2 diabetes mellitus without complication, without long-term current use of insulin (HCC) Expected: 09/03/2021, Expires: 09/03/2022 [facility] Work Phone: Comment on above: Expected: 09/03/2021, Expires: 3 Start: 09-03-2021 End: 09-03-2022 LIPID PANEL BASIC LIPID PANEL BASIC Lab Routine Hyperlipidemia, mixed Expected: 09/03/2021, Expires: 09/03/2022 [facility] Work Phone: Comment on above: Expected: 09/03/2021, Expires: 3 Start: 09-03-2021 End: 09-03-2022 Thyrotropin [Units/volume] in Serum or Plasma TSH BLD Lab Routine Hypothyroidism, acquired Expected: 09/03/2021, Expires: 09/03/2022 [facility] Work Phone: Comment on above: Expected: 09/03/2021, Expires: 3 Start: 08-29-2021 Hepatitis B surface antibody level LDL CHOLESTEROL [facility] Start: 08-28-2021 Adult depression screening assessment DEPRESSION SCREENING [facility] Start: 08-28-2021 ANNUAL PCP TEAM CHRONIC DISEASE VISIT ANNUAL PCP TEAM CHRONIC DISEASE VISIT [facility] Start: 08-08-2021 ADVANCE DIRECTIVE DISCUSSION ADVANCE DIRECTIVE DISCUSSION [facility] Start: 08-08-2021 DEPRESSION ASSESSMENT DEPRESSION ASSESSMENT [facility] Start: 06-10-2021 COVID-19 Vaccine (2 - Booster for Moderna series) COVID-19 Vaccine (2 - Booster for Moderna series) [facility] Start: 06-10-2021 COVID-19 VACCINE (2 - Moderna series) COVID-19 VACCINE (2 - Moderna series) [facility] Start: 05-28-2021 Hemoglobin A1c/Hemoglobin.total in Blood HBA1C [facility] Start: 05-13-2021 COVID-19 VACCINE (2 - Moderna 3-dose series) COVID-19 VACCINE (2 - Moderna 3-dose series) [facility] Start: 05-13-2021 COVID-19 VACCINE (2 - Moderna series) COVID-19 VACCINE (2 - Moderna series) [facility] Start: 04-08-[address] [facility] Start: 2020 RSV Immunization for Adults (1 - 1-dose 75+ series) RSV Immunization for Adults (1 - 1-dose 75+ series) [facility] Start: 2020 RSV Vaccine (1 - 1-dose 75+ series) RSV Vaccine (1 - 1-dose 75+ series) [facility] Start: 2020 [facility] Start: 04-08-2020 Influenza vaccination Flu vaccine (#1) [facility] [place] Start: 04-08-2019 Influenza vaccination Flu vaccine (#1) [facility] Work Phone: Start: 03-15-2019 Breast cancer screen Breast cancer screen [facility] Work Phone: Start: 01-28-2019 Annual Wellness Visit (AWV) Annual Wellness Visit (AWV) [facility] Work Phone: Start: 12-30-2018 [facility]inine [facility] Start: 12-30-2018 Creatinine monitoring Creatinine monitoring [facility] Work Phone: Start: 12-30-2018 Potassium monitoring Potassium monitoring [facility] Work Phone: Start: 02-25-2018 Pneumococcal 65+ years Vaccine (2 - PPSV23 or PCV20) Pneumococcal 65+ years Vaccine (2 - PPSV23 or PCV20) [facility] Start: 02-25-2018 Pneumococcal 65+ years Vaccine (2 of 2 - PPSV23) Pneumococcal 65+ years Vaccine (2 of 2 - PPSV23) [facility] Work Phone: Start: 02-25-2018 Pneumococcal Vaccine: 65+ Years (2 - PPSV23 if available, else PCV20) Pneumococcal Vaccine: 65+ Years (2 - PPSV23 if available, else PCV20) [facility] Start: 02-25-2018 PNEUMOCOCCAL: 65+ (2 - PPSV23 if available, else PCV20) PNEUMOCOCCAL: 65+ (2 - PPSV23 if available, else PCV20) [facility] Start: 02-25-2018 PNEUMOCOCCAL: 65+ (2 - PPSV23 or PCV20) PNEUMOCOCCAL: 65+ (2 - PPSV23 or PCV20) [facility] Start: 09-09-2017 Screening for osteoporosis [facility] Start: 04-22-2017 Pneumococcal Vaccine: 50+ (2 of 2 - PPSV23) Pneumococcal Vaccine: 50+ (2 of 2 - PPSV23) [facility] Start: 04-22-2017 Pneumococcal Vaccine: 50+ Years (2 of 2 - PPSV23) Pneumococcal Vaccine: 50+ Years (2 of 2 - PPSV23) [facility] Start: 04-22-2017 Pneumococcal Vaccine: 65+ (2 - PPSV23 or PCV20) Pneumococcal Vaccine: 65+ (2 - PPSV23 or PCV20) [facility] Start: 04-22-2017 Pneumococcal Vaccine: 65+ (2 of 2 - PPSV23 or PCV20) Pneumococcal Vaccine: 65+ (2 of 2 - PPSV23 or PCV20) [facility] Start: 04-22-2017 Pneumococcal Vaccine: 65+ Years (2 - PPSV23 if available, else PCV20) Pneumococcal Vaccine: 65+ Years (2 - PPSV23 if available, else PCV20) [facility] Start: 04-22-2017 Pneumococcal Vaccine: 65+ Years (2 - PPSV23 or PCV20) Pneumococcal Vaccine: 65+ Years (2 - PPSV23 or PCV20) [facility] Start: 04-22-2017 Pneumococcal Vaccine: 65+ Years (2 of 2 - PPSV23 or PCV20) Pneumococcal Vaccine: 65+ Years (2 of 2 - PPSV23 or PCV20) [facility] Start: 04-22-2017 PNEUMOCOCCAL: 65+ (2 - PPSV23 if available, else PCV20) PNEUMOCOCCAL: 65+ (2 - PPSV23 if available, else PCV20) [facility] Start: 04-22-2017 PNEUMOCOCCAL: 65+ (2 - PPSV23 or PCV20) PNEUMOCOCCAL: 65+ (2 - PPSV23 or PCV20) [facility] Start: 04-22-2017 [facility] Start: 2010 ADVANCE DIRECTIVE DISCUSSION ADVANCE DIRECTIVE DISCUSSION [facility] Start: 2010 BONE DENSITY BONE DENSITY [facility] Start: 2010 Bone Density Screening Bone Density Screening [facility] Start: 2010 PNEUMOVAX AGE 65 AND OVER WITH 5YR LOOKBACK (#1) PNEUMOVAX AGE 65 AND OVER WITH 5YR LOOKBACK (#1) [facility] Start: 2010 Screening for osteoporosis Bone Density Screening [facility] Start: 2005 Hepatitis B Vaccine (1 of 3 - Risk 3-dose series) Hepatitis B Vaccine (1 of 3 - Risk 3-dose series) [facility] Start: 2005 Hepatitis B Vaccines (1 of 3 - Risk 3-dose series) Hepatitis B Vaccines (1 of 3 - Risk 3-dose series) [facility] Start: 2005 RSV Immunization aged 60 or older (1 - 1-dose 60+ series) RSV Immunization aged 60 or older (1 - 1-dose 60+ series) [facility] Start: 2005 RSV Vaccine (1 - 1-dose 60+ series) RSV Vaccine (1 - 1-dose 60+ series) [facility] Start: 2005 [facility] Start: 1995 Colon cancer screen colonoscopy Colon cancer screen colonoscopy [facility] Work Phone: Start: 1995 Screening for malignant neoplasm of colon [facility] Start: 1995 Shingles Vaccine (1 of 2) Shingles Vaccine (1 of 2) [facility] Start: 1995 SHINGRIX VACCINE (1 of 2) SHINGRIX VACCINE (1 of 2) [facility] Start: 1995 Zoster Vaccines (1 of 2) Zoster Vaccines (1 of 2) [facility] Start: 1995 [facility] Start: 1990 COLOGUARD (FIT-DNA) COLOGUARD (FIT-DNA) [facility] Start: [address] [facility] Start: 1990 COLORECTAL CANCER SCREENING COLORECTAL CANCER SCREENING [facility] Start: [address] [facility] Start: 1990 FECAL OCCULT BLOOD FECAL OCCULT BLOOD [facility] Start: [address] [facility] Start: 1964 DTaP/Tdap/Td vaccine (1 - Tdap) DTaP/Tdap/Td vaccine (1 - Tdap) [facility] Start: 1964 DTaP/Tdap/Td Vaccines (1 - Tdap) DTaP/Tdap/Td Vaccines (1 - Tdap) [facility] Start: 1964 Hepatitis A Vaccines (1 of 2 - Risk 2-dose series) Hepatitis A Vaccines (1 of 2 - Risk 2-dose series) [facility] Start: [address] [facility] Start: 1964 Urine screening for protein Diabetes: Urine Protein Screening [facility] Start: 1964 [facility] Start: 1963 ANNUAL PCP TEAM CHRONIC DISEASE VISIT ANNUAL PCP TEAM CHRONIC DISEASE VISIT [facility] Start: 1963 Anxiety Screening Anxiety Screening [facility] Start: 1963 BP CONTROLLED (<130/80) BP CONTROLLED (<130/80) [facility] Start: 1963 HEPATITIS C SCREENING HEPATITIS C SCREENING [facility] Start: 1963 Hepatitis C screening [facility] Start: 1957 COVID-19 VACCINE (1) COVID-19 VACCINE (1) [facility] Start: 1957 Depression Monitoring Depression Monitoring [facility] Start: 1957 Depression Screen Depression Screen [facility] Start: 1957 Depression Screening Depression Screening [facility] Start: 1957 [facility] Start: 1956 DTaP/Tdap/Td vaccine (1 - Tdap) DTaP/Tdap/Td vaccine (1 - Tdap) [facility] Work Phone: Start: 1955 [object Object] DIABETIC FOOT EXAM [facility] Start: 1955 Diabetic foot examination [facility] Start: 1955 Glaucoma screening Dilated Retinal Exam [facility] Start: 1955 Hepatitis B screening URINE ALBUMIN:CREATININE RATIO [facility] Start: 1955 Hepatitis C antibody, confirmatory test DILATED RETINAL EXAM [facility] Start: 1955 Preventive dental service Diabetes: Dental Exam [facility] Start: 1951 PNEUMOCOCCAL: 65+ (1 - PCV) PNEUMOCOCCAL: 65+ (1 - PCV) [facility] Start: 1950 COVID-19 Vaccine (1) COVID-19 Vaccine (1) [facility] Start: 1950 HbA1c (Bld) [Mass fraction] HBA1C [facility] Start: 1946 Hepatitis A Vaccines (1 of 2 - Risk 2-dose series) Hepatitis A Vaccines (1 of 2 - Risk 2-dose series) [facility] Start: 1945 Annual Wellness Visit (AWV) Annual Wellness Visit (AWV) [facility] Start: 1945 Echocardiography Echocardiogram [facility] Start: 1945 Hemoglobin A1c measurement Diabetes: Hemoglobin A1C [facility] Start: 1945 Hepatitis B Vaccines (1 of 3 - 3-dose series) Hepatitis B Vaccines (1 of 3 - 3-dose series) [facility] Start: 1945 Hepatitis C screen Hepatitis C screen [facility] Work Phone: Start: 1945 Hepatitis C screening Hepatitis C screen [place], [place] Start: 1945 Lipid panel Lipid Panel [facility] Start: 1945 Medicare Advantage Annual Wellness Visit (AWV) Medicare Advantage Annual Wellness Visit (AWV) [facility] Start: 1945 Screening for osteoporosis Bone Density Scan [facility] Bacteria identified in Blood by Culture [facility] Bacteria identified in Urine by Culture Urine culture Microbiology STAT 11/17/2022 9:35 PM EDT [facility] Work Phone: Comprehensive Metabo lic Panel w/ Reflex to MG Comprehensive Metabolic Panel w/ Reflex to MG Lab Routine Daily until discontinued starting 12/14/2021, 8 completed [facility] Work Phone: Comment on above: Daily until discontinued starting 2021, 8 completed Glucose [Mass/volume ] in Serum or Plasma [facility] Work Phone: Comment on above: As Needed until discontinued starting 4X Daily (AC & HS) u ntil discontinued starting 12/13/2021 End: 06-26-2024 Hemoglobin [Mass/volume] in Blood [facility] Work Phone: Hemoglobin A1c/Hemoglobin.total in Blood HEMOGLOBIN A1C (POC) Lab Routine Type 2 diabetes mellitus with stage 3 chronic kidney disease, without long-term current use of insulin, unspecified whether stage 3a or 3b CKD (HCC) Ordered: 06/27/2023 [facility] Work Phone: Comment on above: Ordered: 06/27/2023 Hemoglobin A1c/Hemoglobin.total in Blood HEMOGLOBIN A1C (POC) Lab Routine Type 2 diabetes mellitus with stage 3 chronic kidney disease, without long-term current use of insulin, unspecified whether stage 3a or 3b CKD (HCC) Ordered: 01/06/2024 [facility] Work Phone: Comment on above: Ordered: 01/06/2024 Oxygen therapy [[facility] Data Set] Initiate Oxygen Therapy Protocol Respiratory Care Routine As Needed until discontinued starting 12/13/2021 [facility] Work Phone: Comment on above: As Needed until discontinued starting UA DIP, URINE (POC) UA DIP, URIN E (POC) Lab Routine Urinary frequency Ordered: 03/07/2023 [facility] Work Phone: Comment on above: Ordered: 03/07/2023 UA DIP, URINE (POC) UA DIP, URIN E (POC) Lab Routine Recurrent UTI (urinary tract infection) Ordered: 06/27/2023 [facility] Work Phone: Comment on above: Ordered: 06/27/2023 UA DIP, URINE (POC) UA DIP, URIN E (POC) Lab Routine Dysuria Ordered: 12/07/2023 [facility] Work Phone: Comment on above: Ordered: 12/07/2023 End: 09-03-2022 Urinalysis complete panel - Urine URINALYSIS, WITH MICROSCOPIC Lab Routine Hyperlipidemia, mixed 1 Occurrences starting 09/03/2021 until 09/03/2022 [facility] Work Phone: Comment on above: 1 Occurrences starting 09/03/2021 until 09/03/2022 End: 04-05-2024 US DVT LOWER RIGHT US DVT LOWER RIGHT Radiology STAT Right leg swelling 1 Occurrences starting 03/07/2023 until 04/05/2024 [facility] Work Phone: Comment on above: 1 Occurrences starting 03/07/2023 until 04/05/2024 End: 02-04-2025 US Kidney - bilateral and Urinary bladder US KIDNEY/BLADDER Radiology Routine CKD (chronic kidney disease) stage 4, GFR 15-29 ml/min ([facility]) 1 Occurrences starting 01/06/2024 until 02/04/2025 [facility] Comment on above: 1 Occurrences starting 01/06/2024 until 02/04/2025 End: 06-02-2023 US KIDNEY/BLADDER US KIDNEY/BLADDER Radiology Routine BARRY (acute kidney injury) ([facility]) 1 Occurrences starting 05/03/2022 until 06/02/2023 [facility] Work Phone: Comment on above: 1 Occurrences starting 05/03/2022 until 06/02/2023 End: 01-26-2024 [facility] Work Phone: Comment on above: Once for 1 Occurrences starting 01/26/20 until 01/26/2024 End: 04-25-2024 [facility] Work Phone: Comment on above: Once for 1 Occurrences starting 04/25/20 until 04/25/2024 End: 12-22-2021 Vancomycin Level, Trough Vancomycin Level, Trough Lab Timed One Time for 1 Occurrences starting 12/22/2021 until 12/22/2021 [facility] Work Phone: Comment on above: One Time for 1 Occurrences starting 12/06 until 12/22/2021 [facility] Immunizations Immunization Date Immunization Notes Care Provider [facility] 06-26-2024 influenza vaccine A& B surf ant adjuvanted (Fluad) HIGH-DOSE injection 0.5 mL Kaiden David MD Work Phone: [facility] 04-15-2021 COVID-19 original vaccine, full dose, monovalent (MODERNA) [place] Lalit DO Work Phone: [facility] 04-07-2020 influenza nasal, unspecified formulation Komal Lalit DO Work Phone: [facility] 04-07-2020 unknown vaccine or immune globulin [place] Lalit DO Work Phone: [facility] 04-07-2020 influenza virus vaccine, unspecified formulation Ajit Nesheim DO Work Phone: [facility] 06-27-2019 influenza virus vaccine, unspecified formulation [place] Lalit DO Work Phone: [facility] 06-25-2019 influenza, injectabl e, quadrivalent, contains preservative Komal Lalit DO Work Phone: [facility] 05-12-2018 influenza, high dose seasonal, preservative-free Komal Lalit DO Work Phone: [facility] 05-27-2017 influenza, high dose seasonal, preservative-free [place] Lalit DO Work Phone: [facility] 03-28-2017 influenza, high dose seasonal, preservative-free Komal Lalit DO Work Phone: [facility] 02-25-2017 pneumococcal conjuga te vaccine, 13 valent [place] Lalit DO Work Phone: [facility] Work Phone: 04-08-2016 influenza, high dose seasonal, preservative-free [place] Lalit DO Work Phone: [facility] 04-08-2016 pneumococcal conjuga te vaccine, 13 valent Komal Lalit DO Work Phone: [facility] Payers Date Payer Category Payer Unknown [id number] 2024 Medicare [id number] 2024 Self-pay 2023 Medicare HMO [id number] 2022 Medicaid [id number] 2022 Commercial Managed C are - HMO [id number] 2022 Medicare [id number] 2022 Unknown [id number] 2020 Unknown [employer] [address] [id number] 2020-Present [address] [place] [address] [id number] .[id number] 2019 Unknown [id number] .[id number] 2019 Unknown [id number] 1.13.159.2 .[id number] 2017 Medicare MEDICARE MEDICAR E PART A AND B [id number] 2017-Present [phone] [place] [address] [id number] .[id number] 2017 Medicare MEDICARE MEDICAR E PART A AND B xxxxxxxxxx 2017-Present [phone] [place] [address] xxxxxxxxxx [id number] .[id number] 2017 Medicare [id number] .[id number] 2010 Medicare [id number] .7.3.735657.315 2010 Medicare [id number]. 1.13.159.2 .7.3.487535.315 Unknown [id number] 2.16840.1.670100.3.579.2 .462 Unknown [id number] 2.840.1.799161.3.579.2 .462 Unknown [id number] 2.840.1.394971.3.579.2 .462 Unknown [id number] 2.16840.1.672693.3.579.2 .462 Unknown [id number] 2.840.1.425547.3.579.2 .462 Unknown [id number] 2.16840.1.664332.3.579.2 .462 Unknown [id number] 2.840.1.905815.3.579.2 .462 Unknown [id number] 2.16840.1.445459.3.579.2 .462 Unknown [id number] 2.840.1.191830.3.579.2 .462 Unknown [id number] 2.16840.1.352333.3.579.2 .462 Unknown [id number] 2.16840.1.196197.3.579.2 .462 Unknown [id number] 2.16840.1.529337.3.579.2 .462 Unknown [id number] 2.16840.1.868759.3.579.2 .462 Unknown [id number] 2.16840.1.291667.3.579.2 .462 Unknown [id number] 2.16.840.1.881231.3.579.2 .462 Unknown [id number] 2.16.840.1.213591.3.579.2 .462 Unknown [id number] 2.16.840.1.480051.3.579.2 .462 Unknown [id number] 2.16.840.1.331065.3.579.2 .462 Unknown [id number] 2.16.840.1.356266.3.579.2 .462 Unknown [id number] 2.16.840.1.651873.3.579.2 .462 Unknown [id number] 2.16.840.1.988318.3.579.2 .462 Unknown [id number] 2.16.840.1.679303.3.579.2 .462 Social History Date Type Detail Facility Start: 08-28-2020 End: 11-22-2022 Tobacco smoking status NHIS Former smoker [facility] Start: 08-28-2020 End: 11-22-2022 Tobacco use and exposure Never used [facility] Start: 08-28-2020 End: 06-25-2024 Alcohol intake Current non-drinker of alcohol (finding) [address] Work Phone: Start: 1945 Sex Assigned At Not on file S [employer] Work Phone: Start: 08-17-2021 End: 03-30-2023 Exposure to SARS-CoV-2 (event) Not sure [facility] Start: 12-26-2017 End: 08-25-2019 Tobacco smoking status NHIS Never smoker [address] Work Phone: Start: 12-13-2021 History SDOH Alcohol Frequency 1 [employer] Phone: History of tobacco use Current smoker [facility] Start: 12-13-2022 End: 06-25-2024 History of Social function [facility] Start: 12-13-2022 End: 06-25-[address] [facility] Adult Depression Screening Assessment 0 [facility] Within the last year , have you been afraid of your partner or ex-partner? No [facility] Are you now , , , , never or living with a partner? [facility] How often to you hav e a drink containing alcohol? Never [facility] How hard is it for y ou to pay for the very basics like food, housing, medical care, and heating Somewhat hard [facility] Do you feel stress - tense, restless, nervous, or anxious, or unable to sleep at night because your mind is troubled all the time - these days [OSQ] To some extent [facility] (I/We) worried wheth er (my/our) food would run out before (I/we) got money to buy more. Sometimes true [facility] Start: 1945 Sex assigned at Female [facility] Start: 01-28-2024 Gender identity Identifies as female gender (finding) [facility] Start: 01-28-2024 Sexual orientation Heterosexual (fin ding) [facility] (I/We) worried wheth er (my/our) food would run out before (I/we) got money to buy more. Never true [facility] Start: 03-08-2022 End: 11-27-2024 Sex Female (finding) [facility] [employer] In the past 12 month s, how many times have you moved where you were living? In the past 12 months, how many times have you moved where you were living? [facility] Tobacco smoking stat [facility] Unknown if ever smoked [facility] Work Phone: Medical Equipment Procedure Code Equipment Code Equipment Original Text Equipment Identifier Dates [id number], [id number], [id number], [id number] Start: 06-27-2020 End: 06-11-2024 Comment on above: [...] Start: 05-31-2024 [id number] Start: 05-31-2024 [id number] Start: 10-24-2024 Clinical Notes 08-25-2019 to 03-27-2025 Telephone Encounter - Shadia Hernandez RN - 03/27/2025 1:48 PM EDTTelephone Encounter - Shadia Hernandez RN - 03/27/2025 1:48 PM EDTTelephone Encounter - Shadia Hernandez RN - 03/27/2025 11:28 AM EDTAttachments Note Date & Type Note Facility 03-27-2025 Telephone encounter Note I spoke with laboratory secretary. Patient resides at [facility]. PC to [facility] [phone]. I spoke with her nurse Joyce. They are able to draw labs at facility. Will have orders faxed to [phone]. She verbalized understanding. [facility] 03-27-2025 Miscellaneous Notes I spoke with laboratory secretary. Patient resides at [facility]. PC to [facility] [phone]. I spoke with her nurse Joyce. They are able to draw labs at facility. Will have orders faxed to [phone]. She verbalized understanding. Patient cancelled OV today with comment that she is sick. PC to patient. Unable to LMOM as VM not accepting messages. RBC aware patient has OV tomorrow. PC to patient. Unable to LMOM as VM is full. Remote received for Monitored VT event. documented in this encounter [facility] 03-27-2025 Telephone encounter Note Patient cancelled OV today with comment that she is sick. PC to patient. Unable to LMOM as VM not accepting messages. [facility] 03-26-2025 Telephone encounter Note RBC aware patient has OV tomorrow. [facility] 03-26-2025 Telephone encounter Note PC to patient. Unable to LMOM as VM is full. [facility] 03-25-2025 Telephone encounter Note Remote received for Monitored VT event. [facility] 01-11-2025 History of Present illness Narrative [facility] Medical [facility] Cardiology [facility] CARDIOLOGY [address] [address] Dept: [phone] Dept Loc: [phone] Visit type: Established : 1945 Chief Complaint: [...] Weight: 202 lb (91.6 kg) Height: 5' 4" (1.626 m) Body mass index is 34.67 [...] (H) 07/04/2024 @LASTCMP@ No results found for: "CHLPL", CHOL No results found for: "TRIG" No results found for: "HDL" No results found for: "LDLCALC" NT PRO BNP Date Value Ref Range [...] 05/31/2024 Performed by Pravin Poole MD at [facility] Cardiac Cath/EP Lab CHOLECYSTECTOMY CORONARY [...] Disp: , Rfl: documented in this encounter [facility] 10-02-2024 Telephone encounter Note PC to [facility], I spoke with Diego MARRERO Reviewed verbal order. Will send to [facility] pharmacy as well. She verbalized understanding. [facility] 10-02-2024 Miscellaneous Notes PC to [facility], I spoke with Diego MARRERO Reviewed verbal order. Will send to [facility] pharmacy as well. She verbalized understanding. CalledDiego RN was aligraysonle concerned BP past week, she has not been on RX since PM inserted 09/23 -168/70 2/17 -144/68 2/18-158/64 2/-143/66 2-20-136/68 2-148-72 2--146/70 HR 70-80 no HF SX , wt stable,no complaints, will inform Dianelys Rajwinder MARRERO from [facility] requesting return call to clarify medications and BP [phone]. May ask for nurse documented in this encounter [facility] 10-01-2024 Telephone encounter Note Called, Diego MARRERO was alittle concerned BP past week, she has not been on RX since PM inserted 09/23 -168/70 17 -144/68 218-158/64 2-143/66 2--136/68 09/29-148-72 2-146/70 HR 70-80 no HF SX , wt stable,no complaints, will inform Dianelys [facility] 10-01-2024 Telephone encounter Note Rajwinder MARRERO from [facility] requesting return call to clarify medications and BP [phone]. May ask for nurse [facility] 08-03-2024 Note HNO ID: [id number] Author: GOGO BARBOSA RN Service: ? Author Type: Registered Nurse Type: Progress Notes Filed: 08/03/2024 15:49 Note Text: Spoke with Glenda at [facility], patient is now a permanent resident under the care of facility physician, Dr. Adin Elias CNP . Dr. Adin Elias CNP will manage all patient care hereafter (including refilling prescriptions). CCAG chart updated to reflect PCP change. Gogo Barbosa RN [facility] 08-03-2024 History of Present illness Narrative Spoke with Glenda at [facility], patient is now a permanent resident under the care of [facility] physician, Dr. Adin Elias CNP . Dr. Adin Elias CNP will manage all patient care hereafter (including refilling prescriptions). [facility] chart updated to reflect PCP change. Gogo Barbosa RN documented in this encounter [facility] 08-03-2024 Note Patient Outreach (AG ACM) MIKEL WINSTON ([id number]) 1945 F Date Time Provider Department 08/03/24 GOGO BARBOSA [facility] During your visit today, we recorded the following information about you: Gogo Barbosa RN 08/03/2024 3:49 PM Signed Spoke with Glenda at [facility], patient is now a permanent resident under [...] Assessed Reason for Visit: Transition Of Care [6684] Cmt: SNF Update (Intermediate resident) Prescriptions as of 08/03/2024 - silver [...] failure, unspecified HF chroni*12/01/2022 Angina at rest ([facility]) [I20.89] 12/01/2022 Class 1 obesity with body mass index (BMI) of 3*12/01/2022 Systolic murmur [R01.1] 12/26/2022 Platelets decreased ([facility]) [D69.6] 12/26/2022 Depression [F32.A] 12/11/2023 BARRY (acute kidney injury) ([facility]) [N17.9] 11/18/2022 Cellulitis of right lower extremity [...] Encounter Status:Closed by GOGO BARBOSA on 08/03/24 [facility] 2024 Note HNO ID: [id number] Author: GOGO BARBOSA RN Service: ? Author Type: Registered Nurse Type: Progress Notes Filed: 2024 09:36 Note Text: TRANSITION CARE MANAGEMENT (TCM) DISCHARGE TO POST ACUTE FACILITY POST ACUTE TRANSFER SUMMARY: -Pt discharged from [facility] on 07/04/2024. -Post Acute Facility Admitted to [facility] -Admitted for: Altered mental status Office PCC will follow at discharge. Gogo Barbosa RN 2024 [facility] 2024 History of Present illness Narrative TRANSITION CARE MANAGEMENT (TCM) DISCHARGE TO POST ACUTE FACILITY POST ACUTE TRANSFER SUMMARY: -Pt discharged from [facility] on 07/04/2024. -Post Acute Facility Admitted to [facility] -Admitted for: Altered mental status Office PCC will follow at discharge. Gogo Barbosa RN 2024 documented in this encounter [facility] 2024 Note Patient Outreach (AG ACM) MIKEL WINSTON ([id number]) 1945 F Date Time Provider Department 07/13/24 GOGO BARBOSA [facility] During your visit today, we recorded the following information about you: Gogo Barbosa RN 2024 9:36 AM Signed TRANSITION CARE MANAGEMENT (TCM) DISCHARGE TO POST ACUTE FACILITY POST ACUTE TRANSFER SUMMARY: -Pt discharged from [facility] on 07/04/2024. -Post Acute Facility Admitted to [facility] -Admitted for: Altered mental status Office PCC will follow at discharge. Gogo Barbosa RN 2024 Allergies As of Date: 2024 Noted Allergy Reaction CODEINE 02/24/2016 4 - Hives 2 - Rash CODEINE SULFATE 06/13/2018 16 - Unknown Date Reviewed: 06/11/2024 Reviewed by: Stephanie Estrella MA Student - Fully Assessed Reason for Visit: Transition Of Care [4074] Cmt: [facility] Discharge to SNF Prescriptions as of [...] failure, unspecified HF chroni*12/01/2022 Angina at rest ([facility]) [I20.89] 12/01/2022 Class 1 obesity with body [...] Encounter Status:Closed by GOGO BARBOSA on 07/13/24 [facility] 07-04-2024 History of Present illness Narrative Images from the original note were not included. Speech-Language Pathology SPEECH LANGUAGE PATHOLOGY [facility] Dysphagia Treatment Note Patient Name: Mikel Winston Evaluation Date: 07/04/2024 Date of : 1945 Admission Date: 06/25/2024 5:04 PM Age: 78 y.o. [facility]Bed: [facility] A Subjective Patient alert and cooperative. Seen [...] Goal: To get back to home routine, "doing dishes and washing clothes" Encounter Problems Encounter Problems (Active) Swallowing Patient will tolerate the least restrictive diet consistency to allow for safe consumption of daily meals (Progressing) Start: 06/29/24 Expected End: 07/13/24 Patient will demonstrate safe swallowing Intervention/techniques (Progressing) Start: 06/29/24 Expected End: 07/13/24 Patient will tolerate recommended food and liquid consistencies without clinical signs and symptoms of aspirations (Progressing) Start: 06/29/24 Expected End: 07/13/24 Therapy Time INDUSTRIAL MAINTENANCE REPAIRER HELPER Individual Minutes Time In: 801 Time Out: 818 Minutes: 17 GUILLERMO Keyes Images from the original note were not included. PHYSICAL THERAPY [facility] Treatment Note Name/MRN: Mikel Winston ([id number]) Date of : 1945 Age: 78 y.o. Room[facility]Bed: [facility] A Visit #: 1 out of 5 visits Discharge Recommendation: Intermediate Facility Equipment Needed: No Prior Level of [...] not included. Speech-Language Pathology SPEECH LANGUAGE PATHOLOGY [facility] Dysphagia Treatment Note Patient Name: Mikel Winston Evaluation Date: 07/03/2024 Date of : 1945 Admission Date: 06/25/2024 5:04 PM Age: 78 y.o. Room/Bed: [facility] A Subjective Patient alert and cooperative. Seen [...] I think I am doing better, do you?" Pain: Pt denies any current pain. PPE [...] modify bite sizes with biting current bites "Off" original piece if the bite is too [...] Start: 06/29/24 Expected End: 07/13/24 Therapy Time INDUSTRIAL MAINTENANCE REPAIRER HELPER Individual Minutes Time In: 851 Time Out: 909 Minutes: 18 GUILLERMO Keyes Images from the original note were not included. OCCUPATIONAL THERAPY [facility] Treatment Note Name/MRN: Mikel Winston ([id number]) Date of : 1945 Age: 78 y.o. Room/Bed: -249/B2-249 A Visit #: 1 out of 7 visits Discharge Recommendation: Intermediate Facility Equipment Needed: No Prior Level of [...] legs off EOB but required min A GRAPHICS INTERN to elevate trunk. Additional time required to [...] were not included. OCCUPATIONAL THERAPY [facility] Initial Evaluation Name/MRN: Mikel Winston ([id number]) Evaluation Date: 07/02/2024 Date of : 1945 Admission Date: 06/25/2024 5:04 PM Age: 78 y.o. Room/Bed: B2-249/B2-249 A Discharge Recommendation: Intermediate Facility Equipment Needed: No Assessment IMPRESSION: Pt [...] address the below. Recommend planned discharge for [facility] OT with assist PRN. Admitting Diagnosis: [...] 05/31/2024 Performed by Pravin Poole MD at [facility] Cardiac Cath/EP Lab CHOLECYSTECTOMY CORONARY ARTERY BYPASS GRAFT TOTAL KNEE ARTHROPLASTY Right TUBAL LIGATION Admission Diagnosis: Patient Active Problem List Diagnosis Date Noted Angina at rest (HCC) 12/26/2017 Acute cystitis with hematuria 06/25/2024 Cellulitis of right lower extremity 01/28/2024 BARRY (acute kidney injury) (HCC) 11/18/2022 UTI (urinary tract infection) 11/18/2022 Coronary artery disease involving coronary bypass graft of [place] heart without angina pectoris 09/30/2022 Nonrheumatic aortic [...] Responsibilities: Independent Receives Help From: None Active Liquor Commissioner: No Prior Level of Function Prior Level [...] elbow flexion / extension grossly 3+/5, functional 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 Goals and/or treatment plan was established in collaboration with patient/family/other representatives. Images from the original note were not included. PHYSICAL THERAPY [facility] Initial Evaluation Name/MRN: Mikel Winston ([id number]) Evaluation Date: 07/02/2024 Date of : 1945 Admission Date: 06/25/2024 5:04 PM Age: 78 y.o. Room/Bed: B2-249/B2-249 A Discharge Recommendation: Intermediate Facility Equipment Needed: No Assessment IMPRESSION: Pt is a 78 y.o. female admitted 06/25 with AMS. Pt requires transfer to ICU with hepatic encephalopathy. Pt transferred out of ICU services 06/29. Pt found to have hepatic encephalopathy and UTI. CT head (-). Pt recently admitted to [facility] for pacemaker placement 05/31/2024. Pt [...] 05/31/2024 Performed by Pravin Poole MD at [facility] Cardiac Cath/EP Lab CHOLECYSTECTOMY CORONARY ARTERY BYPASS GRAFT TOTAL KNEE ARTHROPLASTY Right TUBAL LIGATION Admission Diagnosis: Patient Active Problem List Diagnosis Date Noted Angina at rest ([facility]) 12/26/2017 Acute cystitis with hematuria 06/25/2024 Cellulitis of right lower extremity 01/28/2024 BARRY (acute kidney injury) ([facility]) 11/18/2022 UTI (urinary tract infection) 11/18/2022 Coronary artery disease involving coronary bypass graft of oneida heart without angina pectoris 09/30/2022 Nonrheumatic aortic valve stenosis 09/30/2022 Essential hypertension 09/30/2022 Dyslipidemia 09/30/2022 Generalized edema 01/27/2022 Diabetes ([facility]) 01/27/2022 Symptomatic sinus bradycardia 05/29/2024 Medical Precautions: [...] Responsibilities: Independent Receives Help From: None Active Liquor Commissioner: No Prior Level of Function Prior Level [...] of Care supervision is transferred to a [facility] Therapy Services Physical Therapist. Goals and/or [...] disease LABS: CBC: Recent Labs 06/30/24 0516 07/01/2432607/02/24 0455 WBC 6.9 7.7 7.3 RBC 2.42* 2.51* 2.41* HGB 7.5* 7.9* 7.6* HCT 24.7* 25.8* 24.2* MCV 102.1* 102.8* 100.4* RDW 15.0 14.9 14.6 PLT 74* 86* 84* BMP: Recent Labs 06/30/24 0516 07/01/2432607/02/24 0455 NA 142 140 135 K 3.5 3.7 3.9 CL 117* 113* 110* CO2 BUN 48* 37* 29* CREATININE 1.15* 1.18* 1.11* GLUCOSE 131* 143* 113* CALCIUM 8.4 8.1* 8.0* ANIONGAP 3 2* 0* LIVER PROFILE: Recent Labs 06/30/24 0516 07/01/24 0327 07/02/24 0455 AST 43 51* 50* ALT 24 28 29 BILITOT 0.8 0.7 0.8 ALKPHOS 81 93 89 PROT 5.0* 5.0* 5.0* PT/INR: No results for input(s): "PROTIME", "INR" in the last 72 hours. CARDIAC ENZYMES: No results for input(s): "TROPONINI" in the last 72 hours. Procalcitonin: No results found for: "PROCAL" COVID-19 PCR: No results for input(s): "COVID19" in the last 72 hours. Objective: Vitals: BP 146/65 (BP Location: Left arm, Patient Position: Lying) Pulse 88 Temp 36.9 C (98.4 F) (Temporal) Resp 18 Ht 5' 4" (1.626 m) SpO2 99% BMI 36.56 kg/m [...] day 8. Plan is to go to [facility] - Discontinue palmer - Discussed with nursing [...] Forte Mobile Relation: Child Secondary Emergency Contact: Costa Winston Mobile Relation: Child Joni Gutierrez MD Division of Hospitalist Medicine [facility] Spiritual Care Note [facility] Palliative Care Patient Name:Mikel Winston Chief Complaint: [...] to patient and people surrounding her. Her outbound sales executive was visiting with them. Follow up PRN. Is there spiritual distress? Unknown Comment: Interventions: Establish rapport . Care Plan: Care plan PRN . Follow Up: PRN. Debriefed: with gate clerk team. Mellissa Vega 07/02/24 Images from the original note were not included. Speech-Language Pathology SPEECH LANGUAGE PATHOLOGY [facility] Dysphagia Treatment Note Patient Name: Mikel [...] Start: 06/29/24 Expected End: 07/13/24 Therapy Time INDUSTRIAL MAINTENANCE REPAIRER HELPER Individual Minutes Time In: 851 Time Out: 909 Minutes: 18 GUILLERMO Keyes Hospitalist Progress Note [...] 5.0* 5.0* PT/INR: No results for input(s): "PROTIME", "INR" in the last 72 hours. CARDIAC ENZYMES: No results for input(s): "TROPONINI" in the last 72 hours. Procalcitonin: No results found for: "PROCAL" COVID-19 PCR: No results for input(s): "COVID19" in the last 72 hours. Objective: Vitals: BP (!) 162/68 (BP Location: Left arm, Patient Position: Sitting) Pulse 84 Temp 36 C (96.8 F) (Temporal) Resp 19 Ht 5' 4" (1.626 m) SpO2 100% BMI 36.56 kg/m [...] Forte Mobile Relation: Child Secondary Emergency Contact: Costa Winston Mobile Relation: Child Joni Gutierrez MD [facility] Images from the original note were not included. Speech-Language Pathology SPEECH LANGUAGE PATHOLOGY [facility] Dysphagia Treatment Note Patient Name: Mikel Winston Evaluation Date: 06/30/2024 Date of : 1945 Admission Date: 06/25/2024 5:04 PM Age: 78 y.o. Room/Bed: [facility] A Subjective Patient alert and cooperative. [...] the bedside to assist pt with feeding. INDUSTRIAL MAINTENANCE REPAIRER HELPER reviewed diet and swallow strategies. Moderate - [...] use of established swallow strategies Continue acute INDUSTRIAL MAINTENANCE REPAIRER HELPER therapy per initial plan of care and [...] Start: 06/29/24 Expected End: 07/13/24 Therapy Time INDUSTRIAL MAINTENANCE REPAIRER HELPER Individual Minutes Time In: 09 Time Out: 0955 Minutes: 19 GUILLERMO Monet [...] (97.7 F) (Temporal) Resp 18 Ht 5' 4" (1.626 m) SpO2 100% BMI 36.56 kg/m [...] 85 123 LIPASE/AMYLASE: No results for input(s): "AMYLASE", "LIPASE" in the last 72 hours. LACTATE: No lab exists for component: "LACTA" BNP: No results for input(s): "BNP" in the last 72 hours. INR: No results for input(s): "INR" in the last 72 hours. ASSESSMENT AND [...] ) which is the office of Kriss Mccray Glessing, and [employer]. Images from the original note were not included. Speech-Language Pathology SPEECH LANGUAGE PATHOLOGY [facility] Bedside Swallow Evaluation Patient Name: Mikel Winston Evaluation Date: 06/29/2024 Date of : 1945 Admission Date: 06/25/2024 5:04 PM Age: 78 y.o. Room/Bed: [facility] A IMPRESSION: S/s oropharyngeal dysphagia. Intermittent overt [...] mastication). Pt would benefit from skilled acute INDUSTRIAL MAINTENANCE REPAIRER HELPER services to address further assessment of prandial [...] brother Tyler. I had a diabetic infection before." Where is Edgar? Spoke with JANES Morgan who cleared pt to be evaluated. Dysphagia History: No history of INDUSTRIAL MAINTENANCE REPAIRER HELPER services in EMR with retrospective chart review Baseline Diet: Regular diet per pt. Current Diet: Dietary Orders (From admission, onward) Start Ordered 06/27/24 0509 Diet, tube feeding no tray Nasogastric; Glucerna 1.5 Roe; Continuous; Yes; 10; Q 8 Hours; 10; 40 ( IP DIET TUBE FEEDING NO TRAY PANEL) Diet effective now Question Answer Comment Route: Nasogastric Formula: Glucerna 1.5 Roe Delivery Method: Continuous Continuous Advance Tube Feeding? Yes Advancement Volume (mL/hr) 10 Advancement Frequency: Q 8 Hours Continuous Initial Rate (Recommended mL/hr) 10 Continuous Goal Rate (Recommended mL/hr) 40 Placed in "And" Linked Group 06/27/24 0508 Tube Feeding: yes, [...] 05/31/2024 Performed by Pravin Poole MD at [facility] Cardiac Cath/EP Lab CHOLECYSTECTOMY CORONARY ARTERY BYPASS GRAFT TOTAL KNEE ARTHROPLASTY Right TUBAL LIGATION Admission Diagnosis: Patient Active Problem List Diagnosis Date Noted Angina at rest ([facility]) 12/26/2017 Acute cystitis with hematuria 06/25/2024 Cellulitis of right lower extremity 01/28/2024 BARRY (acute kidney injury) ([facility]) 11/18/2022 UTI (urinary tract infection) 11/18/2022 Coronary artery disease involving coronary bypass graft of oneida heart without angina pectoris 09/30/2022 Nonrheumatic aortic valve stenosis 09/30/2022 Essential hypertension 09/30/2022 Dyslipidemia 09/30/2022 Generalized edema 01/27/2022 Diabetes (HCC) 01/27/2022 Symptomatic sinus bradycardia 05/29/2024 History of Present Illness: 78 y.o. that presents to the emergency department for evaluation of being altered. Family states that patient is confused. On evaluation patient only answers the word "Mikel" to any question that she is asked. [...] Start: 06/29/24 Expected End: 07/13/24 Therapy Time INDUSTRIAL MAINTENANCE REPAIRER HELPER Individual Minutes Time In: 1430 Time Out: 1445 Minutes: 15 GUILLERMO Keyes Nutrition Assessment Type and Reason for Visit: Reassess Nutrition Recommendations/Plan: NG remains in place, with enteral nutrition at goal, patient tolerating without GI distress. Glucerna 1.5 @ 40 mL/hr will provide: 1440 kcal, 79 g protein, 728 mL free fluid --> 26 kcal and 1.4 g protein/kg IBW(55 kg) Pending INDUSTRIAL MAINTENANCE REPAIRER HELPER evaluation, ADAT per their recommendations As able, please obtain weekly standing scale weights for most accurate anthropometric data and calculation of macronutrient and fluid needs RDN to continue to monitor weekly: fluid accumulation, weight, skin integrity, trends in lab values, tolerance of PO, clinical status, discharge planning. Malnutrition Assessment: Malnutrition Status: At risk for malnutrition (Comment) (EN to goal 06/28, pending INDUSTRIAL MAINTENANCE REPAIRER HELPER eval today (06/29)) Context: Acute Illness Findings of the 6 clinical characteristics of malnutrition: Energy Intake: Mild decrease in energy intake (Comment) (EN at goal since 06/28) Weight Loss: No significant weight loss Body Fat Loss: Mild body fat loss Orbital, Buccal region Muscle Mass Loss: Mild muscle mass loss Temples (temporalis) Fluid Accumulation: Moderate to Severe (+2 BLE) Extremities Cnc Machine Programmer Strength: Measurable reduction in roofing laborer strength Nutrition Assessment: 78 year old woman who remains admitted to [facility] ICU after being found down by family. Initially admitted to [facility], then transferred to ICU morning [...] NFPE compelted with patient consent. Good PO PARKS RECREATION DIRECTOR and prior to acute illness. Pending INDUSTRIAL MAINTENANCE REPAIRER HELPER eval Estimated Daily Nutrient Needs: Energy Requirements Based On: Kcal/kg Weight Used for Energy Requirements: [place] Weight for Energy Calculation (kg): 55 kg Total Energy Requirements (kcals/day): 2524-3486 (25-30 kcal/kg IBW) Weight Used for Protein Requirements: [place] Weight in Kg Used for Protein Requirements: [...] kg) Anthropometric Measures: Height: 162.6 cm (5' 4") Current Body Weight: 90.7 kg (200 lb) Weight Source: Bed Scale Admission Body Weight: (NA) Usual Body Weight: 88.9 kg (196 lb) (Per EMR--> 200# 06/27/23; 209# 12/07/23; 206# 01/06/24; 196# 03/16/24; 198# 04/27/24; 190# 06/11/24) % Weight Change (Calculated): 2 [place] Body Weight (lbs) (Calculated): 120 lbs [place] Body Weight (Kg) (Calculated): 55 kg % [place] Body Weight (Calculated): 166.7 % BMI (kg/m2) [...] to determine Crissy Denis RDN, LDN, Contact: *[phone] Patient is individual with hx of SBP secondary to cirrhosis, coronary artery disease, type 2 diabetes, hypertension, presented to the ED with altered mental status. Requiring Lactulose by NG tube - mentation improved and she will be transferred to the floor. Yumiko Villasenor MD Division of Hospitalist Medicine [facility] Images from the original note [...] patient AxOx2-3 today Dysphagia - cleared by INDUSTRIAL MAINTENANCE REPAIRER HELPER for adult easy to chew food GI [...] is a 78 y.o. female admitted to [facility] on 06/25 for altered mental status. Patient seen and examined this morning. Patient's mental status improving, was AxOx-2- 3 today. Patient's daughter in law at bedside. Patient seen by INDUSTRIAL MAINTENANCE REPAIRER HELPER, started on easy to chew diet. NG [...] be obtained due to patient's mental status Wetmore Symptom Assessment Score Wetmore Score Pain Score 0 Tiredness Score 6 [...] status: alone Work history: retired, worked in [employer] Family Meeting: (if discussing Advanced Care Planning, include .ACPDOCUMENTATION) Participants: extended family Family meeting was held to discuss:Diagnosis and Prognosis, Goals of Care, Treatment Options, Symptom Management, Advanced Care Planning, and Prior Expressed Wishes Objective: Physical Exam BP (!) 168/77 Pulse 103 Temp 36.9 C (98.4 F) (Axillary) Resp 18 Ht 5' 4" (1.626 m) SpO2 100% BMI 36.56 kg/m [...] from the original note were not included. [facility] Pulmonary Critical Care and Sleep Medicine [address] [place] [address] Critical Care Note: Patient - Mikel Winston, Age - 78 y.o. - 1945 Room Number - [id number] [facility] [id number] # - [id number] Date of Admission - 06/25/2024 5:04 PM [...] artery disease involving coronary bypass graft of oneida heart without angina pectoris Nonrheumatic aortic valve stenosis Essential hypertension Dyslipidemia BARRY (acute kidney injury) (HCC) UTI (urinary tract infection) Cellulitis of right lower extremity Symptomatic sinus bradycardia Acute cystitis with hematuria Events of Past 24 Hours As above All other systems reviewed Vitals height is 1.626 m (5' 4"). Her axillary temperature is 36.9 C (98.4 [...] 2863 [I.V.:567; NG/GT:2296] Out: 2130 [Urine:2130] @IODETAILS@ @[id number]@ Lines, ET tube, Devices Lines -none Medications [...] OXYGEN Room Air No components found for: "IFIO2", "MODE", "SETTIDVOL", "SETPEEP" INR Lab Results Component Value Date INR [...] (97.4 F) (Axillary) Resp 21 Ht 5' 4" (1.626 m) SpO2 98% BMI 36.56 kg/m [...] 64 85 LIPASE/AMYLASE: No results for input(s): "AMYLASE", "LIPASE" in the last 72 hours. LACTATE: No lab exists for component: "LACTA" BNP: No results for input(s): "BNP" in the last 72 hours. INR: No results for input(s): "INR" in the last 72 hours. ASSESSMENT AND [...] from the original note were not included. [facility], Pulmonary Critical Care and Sleep Medicine [address] [place] [address] Critical Care Note: Patient - Mikel Winston, Age - 78 y.o. - 1945 Room Number - [id number] [facility] # - [id number] Date of Admission - 06/25/2024 5:04 PM [...] Active Problem List Diagnosis Angina at rest ([facility]) Generalized edema Diabetes ([facility]) Coronary artery disease involving coronary bypass graft of oneida heart without angina pectoris Nonrheumatic aortic valve stenosis Essential hypertension Dyslipidemia BARRY (acute kidney injury) ([facility]) UTI (urinary tract infection) Cellulitis of right lower extremity Symptomatic sinus bradycardia Acute cystitis with hematuria Events of Past 24 Hours As above All other systems reviewed Vitals height is 1.626 m (5' 4"). Her axillary temperature is 37 C (98.6 [...] shifts: In: 4405.6 [I.V.:2420.1; Blood:466.5; NG/GT:1519] Out: 1895 [Urine:1895] @IODETAILS@ @[id number]@ Lines, ET tube, Devices Lines -none Medications [...] OXYGEN Room Air No components found for: "IFIO2", "MODE", "SETTIDVOL", "SETPEEP" INR Lab Results Component Value Date INR 1.2 (H) 06/25/2024 PROTIME 13.2 (H) 06/25/2024 APTT Recent Labs 06/25/24 1738 APTT 25.1 Lactic Acid No components found for: "LACTA" BNP No results for input(s): "BNP" in the last 72 hours. Cultures Radiology [...] (Axillary) Resp 14 Ht 1.626 m (5' 4") SpO2 100% BMI 36.56 kg/m TEMPERATURE: Current [...] Intake/Output Summary (Last 24 hours) at 06/27/2024 0901 Last data filed at 06/27/2024 0402 Gross [...] 74 64 LIPASE/AMYLASE: No results for input(s): "AMYLASE", "LIPASE" in the last 72 hours. LACTATE: No lab exists for component: "LACTA" BNP: No results for input(s): "BNP" in the last 72 hours. INR: Recent Labs 06/25/24 1738 INR 1.2* ASSESSMENT AND PLAN 1. Ams - on lactulose, no obvious infection, hbg stable despite "maroon" stools 2. GIB - see abve, hbg stable, getting tf. Possibly consider lgit/ugit eval once medically stable, and able to tolerate prep 3. MASLD - labs stable, no prior work up, lft nl. Consider serogies once stable, or if lft increase Images from the original note were not included. [facility], Pulmonary Critical Care and Sleep Medicine [address] [place] [address] Critical Care Note: Patient - Mikel Winston, Age - 78 y.o. - 1945 Room Number - [id number]/[id number] [facility] # - [id number] Date of Admission - 06/25/2024 5:04 PM Hospital Day - 2 HPI/Subjective 78-year-old female, with past medical history significant for coronary artery disease, type 2 diabetes, hypertension, cirrhosis transferred from [facility] to ICU for altered mental status [...] artery disease involving coronary bypass graft of oneida heart without angina pectoris Nonrheumatic aortic valve stenosis Essential hypertension Dyslipidemia BARRY (acute kidney injury) (HCC) UTI (urinary tract infection) Cellulitis of right lower extremity Symptomatic sinus bradycardia Acute cystitis with hematuria Events of Past 24 Hours Patient is still responsive to painful stimuli only able to maintain her airway All other systems reviewed Vitals height is 1.626 m (5' 4"). Her axillary temperature is 36.9 C (98.4 [...] [I.V.:1036.1; Blood:466.5; NG/GT:173] Out: 945 [Urine:945] @IODETAILS@ @[id number]@ Lines, ET tube, Devices Lines -none Medications [...] OXYGEN Room Air No components found for: "IFIO2", "MODE", "SETTIDVOL", "SETPEEP" INR Lab Results Component Value Date INR 1.2 (H) 06/25/2024 PROTIME 13.2 (H) 06/25/2024 APTT Recent Labs 06/25/24 1738 APTT 25.1 Lactic Acid No components found for: "LACTA" BNP No results for input(s): "BNP" in the last 72 hours. Cultures Radiology [...] 35 minutes so far today, excluding procedures. [facility] Respiratory Care Department Progress Note As [...] assess Fluid Accumulation: Moderate to Severe Extremities Cnc Machine Programmer Strength: Not Performed Nutrition Assessment: 78 year old woman with PMHx: CAD (s/p CABG 2018), PCI (s/p stenting in 2018 d/t moderate aortic stenosis), DMII(A1C=6.1% 01/28/24), CKD stage III, liver cirrhosis, osteoporosis, HTN. Most recently admitted to [facility] 05/29-06/01/24 with bilateral leg swelling, initially presented to [facility] ED then transferred to [facility] for PPM placement. Underwent s/p Medtronic PPM implant on 05/31/25, post op device check was normal and discharged home in improved condition. She currently presents to [facility] with AMS. LKW ~1100 on 06/25 while speaking to daughter over the phone, called dropped. Granddaughter later found patient ~1500 on 06/25 slumped in here chair and confused at home. Significant labs on admit: Hgb(9.0), Hct(27.7), BUN(37), Creatinine(1.40), INR(1.2), troponin(0.040). +Urine for EColi. +FBOT. Admitted to [facility], in acupressure therapist mental status with further decline- only responding to painful stimuli. +Bloody stool noted, with coffee ground emesis. TRANSPORTATION DIRECTOR called and transferred to ICU this morning. NG Placed at 0945. RN with patient at time of attempted assessment. Deferred NFPE until follow-up. Discussed with MD via secureChat, agreeable to begin trophic EN once NG placement confirmed. Estimated Daily Nutrient Needs: Energy Requirements Based On: Kcal/kg Weight Used for Energy Requirements: [place] Weight for Energy Calculation (kg): 55 kg Total Energy Requirements (kcals/day): 3415-2137 (25-30 kcal/kg IBW) Weight Used for Protein Requirements: [place] Weight in Kg Used for Protein Requirements: [...] NPO Anthropometric Measures: Height: 162.6 cm (5' 4") Current Body Weight: 86.2 kg (190 lb) Weight Source: (noted at office visit on 06/11/24. No weight obtained this admit) Admission Body Weight: (NA) Usual Body Weight: 88.9 kg (196 lb) (Per EMR--> 200# 06/27/23; 209# 12/07/23; 206# 01/06/24; 196# 03/16/24; 198# 04/27/24; 190# 06/11/24) % Weight Change (Calculated): -3.1 [place] Body Weight (lbs) (Calculated): 120 lbs [place] Body Weight (Kg) (Calculated): 55 kg % [place] Body Weight (Calculated): 158.3 % BMI (kg/m2) [...] to determine Crissy Denis RDN, LDN, Contact: *[phone] Images from the original note were not included. PHYSICAL THERAPY [facility] Name/MRN: Mikel Winston ([id number]) Date: 06/26/2024 Therapy eval and treat orders received. Chart review complete. Pt in with AMS and initially able to respond to verbal cues. TRANSPORTATION DIRECTOR called this a.m. with pt experiencing multiple [...] original note were not included. OCCUPATIONAL THERAPY [facility] Name/MRN: Mikel Winston ([id number]) Date: 06/26/2024 Therapy eval and treat orders received. Chart review complete. Pt in with AMS and initially able to respond to verbal cues. TRANSPORTATION DIRECTOR called this a.m. with pt experiencing multiple [...] will be decided documented in this encounter [facility] 07-04-2024 Hospital course Narrative Images from the [...] back to baseline. Plan is discharge to [facility] Acute, acute on chronic, unstable/uncontrolled chronic problems/diagnoses: [...] (98.5 F) (Temporal) Resp 20 Ht 5' 4" (1.626 m) SpO2 99% BMI 36.56 kg/m [...] at baseline. LABS: Recent Labs 07/02/2445407/03/241 07/04/24 042 NA 135 136 136 K 3.9 3.9 3.8 CL 110* 111* 110* CO2 BUN 29* 25* 20* CREATININE 1.11* 1.14* [...] Your Medications These medications were sent to [facility]/pharmacy #[id number] [place] [address] dextromethorphan-guaiFENesin 30-600 MG 12 hr tablet lactulose 10 GM/15ML solution Recommended Follow-up: Komal Cohn DO [address] [facility] [address] Schedule an appointment as soon as possible for a visit in 1 week(s) Hospital follow up Complexity of Follow up: [] Moderate Complexity: follow up within 7-14 calendar days (75547) [x] Severe Complexity: follow up within 7 calendar days (26948) Follow up Testing, Pending results or Referrals [...] Joni Gutierrez MD Division of Hospitalist Medicine [facility] 07/04/2024, 9:25 AM documented in this encounter [facility] 07-04-2024 Note [facility] 07-03-2024 Miscellaneous Notes Discussed with primary [...] intake Outcome: Progressing Care Management Progress Note NADEEM tried but unable to get trip to [facility] booked before 4:30 pm. Trips are now booking out to 5:30 pm. Trip now scheduled for tomorrow 07/04 @ 1000. Called Heidi the Liaison form [employer] to update her that transport will be rescheduled for tomorrow 07/04/24 @ 1000. Length of Stay (Days): 8 GMLOS: 3.2 Attempted to dc patient to [facility] this afternoon however the earliest fruit or nut picker in [employer] was for 5:30 and [facility] are unable to accept patients after 4;30. Rescheduled the transport for tomorrow 07/04 at 10;00 am. Voicemail message left for patients daughter to update her with tomorrows dc date and time. [facility] did try to reach out to [facility] rachid update. Care Management Progress Note RICARDO kang to complete 7000 and send DC packet and MAR to [facility]. SW set up transport for 2:30 pm. Updated Ryan Gordon at [facility] at DC time. Length of Stay (Days): 8 GMLOS: 3.2 Patient Choice Patient Name: MIKEL WINSTON Date of : 1945 All Providers Sent Referral Name: [facility], smsPREP. Phone: [phone] Address: [id number] [place] [address] Discharge med list transmitted to [facility] via Careport per [facility] request. 7000 was entered into [facility] for the SNF- FACILITY IS AWARE Care [...] Progress Note Received call from Rosa at [facility] and informed me that Precert has been obtained and good till 07/05/24. [address] Gutierrez and plan is to DC pt tomorrow. [facility] notified of this [facility]. DCP: Pt to go to SNF tomorrow. Length of Stay (Days): 7 GMLOS: 3.2 Care Management Progress Note Spoke with Liaison From [facility] and they did accept pt. She wants updated PT/OT notes. RETAIL LEADER tasked to send updated PT/OT notes so they can start precert auth on their end. Barrier to DC. Awaiting precert auth. Length of Stay (Days): 7 GMLOS: 3.2 Sent therapy notes to SNF [facility] via [facility] per TCC request. Await review and response regarding ability to accept. TCC notified. Referral placed to SNF-[facility] via [facility] per TCC request. Await review and response regarding ability to accept. TCC notified. Care Management Progress Note Called to pt's room by corporation secretary that pt wanted to speak to this TCC about SNF choice. Met with pt, introduced self and explained role. Pt's outbound sales executive and in the room. Pt gives this TCC permission to speak to them also about DC planning. Pt and outbound sales executive's Soheila Angulo [phone] want this TCC to make referral to [facility]. RETAIL LEADER tasked to make referral. Pt does not have any further SNF choices. Informed her that I will get back to her. Also received call from [facility] liaison and he states pt is [...] process, treatment plan, medications, and discharge instructions 06/30/2024 06 by Erika Trent RN Outcome: Progressing 06/30/2024 [...] Problem: Problem Interventions Goal: Promote nutritional intake 06/30/2024 0624 by Erika Trent RN Outcome: Progressing 06/30/2024 0610 by Erika Trent RN Outcome: Progressing Problem: Neurosensory - Adult Goal: Achieves stable or improved neurological status 06/30/2024 06 by Erika Trent RN Outcome: Progressing 06/30/2024 06 by Erika Trent RN Outcome: Progressing Problem: Hematologic - Adult Goal: Maintains hematologic stability 06/30/2024 06 by Erika Trent RN Outcome: Progressing Flowsheets (Taken 06/30/2024 0617) Maintains hematologic stability: Assess for signs and symptoms of bleeding or hemorrhage Monitor labs for bleeding or clotting disorders 06/30/2024 06 by Erika Trent RN Outcome: Progressing Problem: [...] from the original note were not included. [facility] Palliative Care Transitions of Care Note Mikelmai Winston : 1945 ADMIT DATE: 06/25/2024 DISCHARGE DATE: TBD PRIMARY CARE PHYSICIAN: KOMAL COHN DO CODE STATUS: DNR-CCA DISCHARGE DIAGNOSES: Principal Problem: Acute cystitis with hematuria HOSPITAL COURSE: Mikel Winston is a 78 y.o. female with PMHx of CAD S/P CABG 2009, PCI 2017, S/P PPM, DM2, HTN, Cirrhosis of the liver who was admitted to [facility] on 06/25 with complain of altered mental status. Patient had Rapid response called at 4.30 am on 06/26 as she was not responding to any verbal stimuli. Patient was transferred to ICU. Acute encephalopathy - multifactorial likely due to combination of hepatic encephalopathy, UTI - mental status improving, patient AxOx2-3 today Dysphagia - cleared by INDUSTRIAL MAINTENANCE REPAIRER HELPER for adult easy to chew food GI [...] is maintained or improved Outcome: Not Progressing TRANSPORTATION DIRECTOR paged for decline in mental status. Per primary RN, pt was opening eyes to verbal stimuli previously in the shift, but is now only responding to painful stimuli. VSS. Pupils 2mm, equal and reactive to light. Pt also with several episodes of bloody stool, and one episode of emesis during rapid response. Dr. Santoro at bedside. IV Zofran given per order. Labs drawn and sent. Pt then taken to CT scan by this RN and primary RN. Pt to remain on GMF at this time. documented in this encounter [facility] 07-03-2024 Nurse Note Report called to [facility]. Pt transport is scheduled for 2:30pm. Patient was informed that her catheter needed to be removed per Doctors order. Patient currently has family visiting and is eating dinner and would like to wait until later. Patient was asked to call the nurse when she was ready for it to be removed. documented in this encounter [facility] 07-03-2024 Hospital Discharge instructions Joni Gutierrez MD [...] Forte Mobile Relation: Child Secondary Emergency Contact: Costa Winston Mobile Relation: Child Past Surgical History: Past Surgical History: Procedure Laterality Date APPENDECTOMY CARDIAC ELECTROPHYSIOLOGY PROCEDURE N/A 05/31/2024 Performed by Pravin Poole MD at [facility] Cardiac Cath/EP Lab CHOLECYSTECTOMY CORONARY [...] artery disease involving coronary bypass graft of oneida heart without angina pectoris Nonrheumatic aortic valve stenosis Essential hypertension Dyslipidemia BARRY (acute kidney injury) (HCC) UTI (urinary tract infection) Cellulitis of right lower extremity Symptomatic sinus bradycardia Isolation/Infection: No active isolations No active infections Nurse Assessment: Last Vital Signs: BP 112/55 (BP Location: Right arm, Patient Position: Lying) Pulse 78 Temp 36.3 C (97.3 F) (Temporal) Resp 17 Ht 1.626 m (5' 4") SpO2 99% BMI 36.56 kg/m Last documented pain score (0-10 scale): Last Weight: Wt Readings from Last 1 Encounters: 05/29/24 96.6 kg (213 lb) Mental Status: FAM Patient Mental Status: oriented, alert, and forgetful at times IV Access: FAM IV Access: None Nursing Mobility/ADLs: Walking Minimal assistance Transfer Minimal assistance Bathing Minimal assistance Dressing Minimal assistance Toileting Total assistance Feeding Minimal assistance End Frazer Minimal assistance Med Delivery yes Wound Care [...] Date: 06/25/24 Discharging to Facility/ Agency Name: [facility] Address: [address] [place] [address] Fax: Dialysis Facility (if applicable) Name: Address: Dialysis Schedule: Phone: Fax: Vp Home [facility]/Padder signature: ICIAN SECTION Name: Mikel Winston Prognosis: fair Condition at Discharge: stable Rehab Potential (if transferring to Rehab): fair Recommended Labs or Other Treatments After Discharge: CMP, CBC and ammonia levels every 3 days The individual is being admitted to a nursing facility directly from an [facility] or a unit of a [facility] that is not operated by or licensed by [facility] under section 5119.14 or 5160-3-15.1 5 The individual requires the level of services provided by a nursing facility for the condition for which he or she was treated in the hospital and, Physician Certification: I certify the above information and transfer of Mikel Winston is necessary for the continuing treatment of the diagnosis listed and that she requires intermediate facility for less than 30 days. Update Admission H&P: No change in H&P PHYSICIAN SIGNATURE: The following attachments cannot be sent through Care Everywhere.Acute Cystitis Discharge Instructions (South Sudanese)Ammonia Blood Test (South Sudanese)documented in this encounter [facility] 07-02-2024 Note Referral placed to [facility] via [facility] per TCC request. Await review and response regarding ability to accept. TCC notified. 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 Pricilla Steinberg MD Time-based code 88169 for 16-45 minutes. Add-on code 70400 at 46 minutes and each additional 30 [...] 05/31/2024 Performed by Pravin Poole MD at [facility] Cardiac Cath/EP Lab CHOLECYSTECTOMY CORONARY [...] be obtained due to patient's mental status Wetmore Symptom Assessment Score Wetmore Score Pain Score 0 per FLACC Tiredness [...] Score: 0 Assessed by: provider. Social history: Healy status: no Marital status: Living status: alone Work history: retired, worked in [employer] Family Meeting: Participants: extended family Family meeting was held to discuss:Diagnosis and Prognosis, Goals of Care, and Advanced Care Planning Objective: Physical Exam BP (!) 164/83 Pulse 111 Temp 37 C (98.6 F) (Axillary) Resp 24 Ht 5' 4" (1.626 m) SpO2 100% BMI 36.56 kg/m [...] by: Bre Sparks MD Consult ordered by: Danyell Stringer MD CONSULT QUESTION: Melena, anemia, h/o [...] 05/31/2024 Performed by Pravin Poole MD at [facility] Cardiac Cath/EP Lab CHOLECYSTECTOMY CORONARY [...] 3 days in a row 03/14/24 Jose Rojas MD levothyroxine (Synthroid, Levoxyl) 50 MCG tablet TAKE 1 TABLET BY MOUTH DAILY 12/22/21 03/30/23 Nguyen Mclaughlin MD rosuvastatin (Crestor) 20 MG tablet Take 1 tablet (20 mg) by mouth daily. 03/14/24 Jose Rojas MD SITagliptin (Januvia) 25 MG tablet Take 1 tablet (25 mg) by mouth daily. 02/02/24 02/01/25 Terence Gonzalez MD trolamine salicylate (Aspercreme) 10 % cream Apply topically every 8 hours as needed (for muscle pain). 06/01/24 06/01/25 Kyung Hogan APRN - STEAM TRAP WORKER Current Facility-Administered Medications Medication Dose Route Frequency Provider Last Rate Last Admin acetaminophen (Tylenol) tablet 650 mg 650 mg Oral q6h PRN Danyell Stringer MD Or acetaminophen (Tylenol) suppository 650 mg 650 mg Rectal q6h PRN Danyell Stringer MD aspirin EC tablet 81 mg 81 mg Oral Daily Danyell Stringer MD cefTRIAXone (Rocephin) 1,000 mg in sodium chloride 0.9 % 50 mL IVPB Mini-Bag Plus 1,000 mg IntraVENous q24h Danyell Stringer MD Stopped at 06/26/24 1745 cholecalciferol (Vitamin D-3) tablet 5,000 Units 5,000 Units Oral Daily Danyell Stringer MD cyanocobalamin (Vitamin B-12) tablet 100 mcg 100 mcg Oral Daily Danyell Stringer MD dextrose 5 % infusion 100 mL/hr IntraVENous PRN Danyell Stringer MD dextrose 50 % solution 12.5 g 12.5 g IntraVENous PRN Danyell Stringer MD ferrous sulfate tablet 325 mg 325 mg Oral Daily with breakfast Danyell Stringer MD glucagon (human recombinant) injection 1 mg 1 mg IntraMUSCular PRN Danyell Stringer MD glucose oral gel 15 g 15 g Oral PRN Danyell Stringer MD influenza vaccine A&B surf ant adjuvanted (Fluad) HIGH-DOSE injection 0.5 mL 0.5 mL IntraMUSCular Prior to discharge Danyell Stringer MD Insulin Lispro (Humalog) injection 0-12 Units 0-12 Units SubCUTAneous q6h Danyell Stringer MD 2 Units at 06/26/24 1719 ipratropium-albuterol (Duo-Neb) 0.5-2.5 mg/3 mL nebulizer solution 3 mL 3 mL Nebulization TID Danyell Stringer MD 3 mL at 06/26/24 1527 lactulose (Chronulac) 10 GM/15ML solution 20 g 20 g Oral TID Danyell Stringer MD 20 g at 06/26/24 1437 levothyroxine (Synthroid, Levoxyl) tablet 50 mcg 50 mcg Oral qAM AC Danyell Stringer MD linaGLIPtin (Tradjenta) tablet 5 mg 5 mg Oral Daily Danyell Stringer MD ondansetron ODT (Zofran-ODT) disintegrating tablet 4 mg 4 mg Oral q8h PRN Danyell Stirnger MD Or ondansetron (Zofran) injection 4 mg 4 mg IntraVENous q6h PRN Danyell Stringer MD 4 mg at 06/26/24 0512 pantoprazole (ProtoNix) EC tablet 40 mg 40 mg Oral Nightly Danyell Stringer MD Or pantoprazole (ProtoNix) 40 mg in sodium chloride (PF) 0.9 % 10 mL injection 40 mg IntraVENous Nightly Danyell Stringer MD polyethylene glycol (PEG) 3350 (Miralax) packet 17 g 17 g Oral Daily PRN Danyell Stringer MD rosuvastatin (Crestor) tablet 20 mg 20 mg Oral Daily Danyell Stringer MD sodium chloride 0.9 % infusion 5-250 mL/hr IntraVENous PRN Danyell Stringer MD sodium chloride 0.9 % infusion 50 mL/hr IntraVENous Continuous Danyell Stringer MD 50 mL/hr at 06/25/24 1848 50 mL/hr at 06/25/24 1848 sodium chloride 0.9 % infusion 250 mL/hr IntraVENous PRN Danyell Stringer MD sodium chloride 0.9 % infusion 250 mL/hr IntraVENous PRN Donna Del Angel APRN - AJTIN sodium chloride 0.9% (NS) flush 5-40 mL 5-40 mL IntraVENous q12h Danyell Stringer MD sodium chloride 0.9% (NS) flush 5-40 mL 5-40 mL IntraVENous PRN Danyell Stringer MD ALLERGIES: Allergies Allergen Reactions Codeine [...] -- -- -- -- BMP: Recent Labs 06/25/248 06/26/24 0513 06/26/24 0852 NA 141 142 142 [...] to severe toxic metabolic encephalopathy Problem List: [facility] cirrhosis - no notes in chart, [...] 05/31/2024 Performed by Pravin Poole MD at [facility] Cardiac Cath/EP Lab CHOLECYSTECTOMY CORONARY [...] 10 min Stress: Stress Concern Present (01/28/2024) Spanish Sayner of Occupational Health - Occupational Stress Questionnaire Feeling of Stress : To some extent Social Connections: Moderately Integrated (01/28/2024) Social Connection and Isolation Panel [NHANES] Frequency of Communication with Friends and Family: More than three times a week Frequency of Social Gatherings with Friends and Family: More than three times a week Attends Protestant Services: More than 4 times per year [...] 3 days in a row 03/14/24 Jose Rojas MD levothyroxine (Synthroid, Levoxyl) 50 MCG tablet TAKE 1 TABLET BY MOUTH DAILY 12/22/21 03/30/23 Nguyen Mclaughlin MD rosuvastatin (Crestor) 20 MG tablet Take 1 tablet (20 mg) by mouth daily. 03/14/24 Jose Rojas MD SITagliptin (Januvia) 25 MG tablet Take 1 tablet (25 mg) by mouth daily. 02/02/24 02/01/25 Terence Gonzalez MD trolamine salicylate (Aspercreme) 10 % cream Apply topically every 8 hours as needed (for muscle pain). 06/01/24 06/01/25 Kyung Hogan APRN - STEAM TRAP WORKER Objective: Oxygen Delivery: VITALS: BP 151/63 (BP [...] Normal [] Scar/Lesion/Mass Inspection of teeth/lips/gums Dentition: []Lime Teeth []Dentures Lips/Gums: []Intact []Lesion Present Mucosa: []Earl []Moist []Dry Neck: External Appearance Overall Appearance: [...] -- 74 Glucose: Recent Labs 06/25/24 1712 06/25/24 1738 06/25/24 2246 06/26/24 0513 06/26/24 0800 GLUCOSE -- 147* -- 155* -- POCGLU 140* -- 184* -- 169* Procal: No results for input(s): "PROCAL" in the last 72 hours. CBC: Recent Labs 06/25/24173706/26/24 0310 06/26/24 0513 06/26/24 0608 WBC 5.5 6.6 7.9 -- HGB 9.0* 7.9* 8.5* 8.5* HCT 27.7* 25.3* 27.2* 27.2* PLT 119* 106* 127* -- MCV 95.8 96.9 100.7* -- RDW 14.6 14.6 15.0 -- ABGs: No results for input(s): "PHART", "CEY5YRQ", "PO2ART", "ARO4CMO", "SO2ART", "C9YJIOOX" in the last 72 hours. Lactic Acid: No results for input(s): "LACTATE" in the last 72 hours. INR: Recent [...] COVID19 Legionella Ag: No results found for: "LEGIONELLAPN" Strep Ag: No results for input(s): "STREPPNEUMO" in the last 72 hours. Imaging- Assessment [...] physicians, excluding procedures. documented in this encounter [facility] 06-26-2024 Note [facility] 06-26-2024 Procedure note Associated Ord er(s): EEG Images from the original note were not included. [facility]ORAT[facility] [address] [place] [id number] ROUTINE EEG REPORT Patient Name: Mikel Winston : 1945 Date of Study: 06/26/2024 Duration Recorded: 22 minutes EEG#: [id number] PHYSICS DEPARTMENT CHAIR: TAE PROVIDER REQUESTING STUDY: Danyell Stringer MD REASON FOR EXAM: Evaluate for [...] 650 mg 650 mg Oral q6h PRN Danyell Stringer MD Or acetaminophen (Tylenol) suppository 650 mg 650 mg Rectal q6h PRN Danyell Stringer MD aspirin EC tablet 81 mg 81 mg Oral Daily Danyell Stringer MD cefTRIAXone (Rocephin) 1,000 mg in sodium chloride 0.9 % 50 mL IVPB Mini-Bag Plus 1,000 mg IntraVENous q24h Danyell Stringer MD cholecalciferol (Vitamin D-3) tablet 5,000 Units 5,000 Units Oral Daily Danyell Stringer MD cyanocobalamin (Vitamin B-12) tablet 100 mcg 100 mcg Oral Daily Danyell Stringer MD dextrose 5 % infusion 100 mL/hr IntraVENous PRN Danyell Stringer MD dextrose 50 % solution 12.5 g 12.5 g IntraVENous PRN Danyell Stringer MD ferrous sulfate tablet 325 mg 325 mg Oral Daily with breakfast Danyell Stringer MD glucagon (human recombinant) injection 1 mg 1 mg IntraMUSCular PRN Danyell Stringer MD glucose oral gel 15 g 15 g Oral PRN Danyell Stringer MD influenza vaccine A&B surf ant adjuvanted (Fluad) HIGH-DOSE injection 0.5 mL 0.5 mL IntraMUSCular Prior to discharge Danyell Stringer MD Insulin Lispro (Humalog) injection 0-12 Units 0-12 Units SubCUTAneous q6h Danyell Stringer MD 2 Units at 06/26/24 1209 ipratropium-albuterol (Duo-Neb) 0.5-2.5 mg/3 mL nebulizer solution 3 mL 3 mL Nebulization TID Danyell Stringer MD 3 mL at 06/26/24 0824 lactulose (Chronulac) 10 GM/15ML solution 20 g 20 g Oral TID Danyell Stringer MD 20 g at 06/26/24 1057 levothyroxine (Synthroid, Levoxyl) tablet 50 mcg 50 mcg Oral qAM AC Danyell Stringer MD linaGLIPtin (Tradjenta) tablet 5 mg 5 mg Oral Daily Danyell Stringer MD ondansetron ODT (Zofran-ODT) disintegrating tablet 4 mg 4 mg Oral q8h PRN Danyell Stringer MD Or ondansetron (Zofran) injection 4 mg 4 mg IntraVENous q6h PRN Danyell Stringer MD 4 mg at 06/26/24 0512 pantoprazole (ProtoNix) EC tablet 40 mg 40 mg Oral Nightly Danyell Stringer MD Or pantoprazole (ProtoNix) 40 mg in sodium chloride (PF) 0.9 % 10 mL injection 40 mg IntraVENous Nightly Danyell Stringer MD polyethylene glycol (PEG) 3350 (Miralax) packet 17 g 17 g Oral Daily PRN Danyell Stringer MD rosuvastatin (Crestor) tablet 20 mg 20 mg Oral Daily Danyell Stringer MD sodium chloride 0.9 % infusion 5-250 mL/hr IntraVENous PRN Danyell Stringer MD sodium chloride 0.9 % infusion 50 mL/hr IntraVENous Continuous Danyell Stringer MD 50 mL/hr at 06/25/24 1848 50 mL/hr at 06/25/24 1848 sodium chloride 0.9% (NS) flush 5-40 mL 5-40 mL IntraVENous q12h Danyell Stringer MD sodium chloride 0.9% (NS) flush 5-40 mL 5-40 mL IntraVENous PRN Danyell Stringer MD TECHNICAL ASPECTS: This routine scalp EEG study with video was carried out at [place]. Scalp electrodes were positioned in person by an radiologic technologist chief, following patient education, according to the 10-20 International system of electrode placement and maintained for integrity and quality of the recording. EEG data with video was recorded continuously and digitally stored. The radiologic technologist chief reviewed all automated detections and manual events [...] triphasic wave complexes. These complexes demonstrated an kdfrakzl-wm-mgncapvaz phase delay. Time Elapsed: 00:05:53 INTERICTAL EPILEPTIFORM ACTIVITY: No epileptiform activity was seen. ICTAL ACTIVITY: No ictal activity was seen. NON-EPILEPTIC EVENTS: None. ACTIVATION PROCEDURES: Photic stimulation was not performed. Hyperventilation was not performed. IMPRESSION AND ACTIONS TAKEN: This routine EEG with video is abnormal. Continuous xnqnebum-kw-wwbudq diffuse slowing is seen with intermixed triphasic waves. This activity was unresponsive to stimulation. No seizures are captured. No sleep architecture is seen. The findings are consistent with a kkbrwkuo-tf-jhuntd toxic-metabolic encephalopathy. Mark Chase MD PhD Epilepsy Attending documented in this encounter [facility] 06-25-[address] [facility] 06-25-2024 History and physical note Attending History [...] 05/31/2024 Performed by Pravin Poole MD at [facility] Cardiac Cath/EP Lab CHOLECYSTECTOMY CORONARY [...] 10 min Stress: Stress Concern Present (01/28/2024) Spanish Sayner of Occupational Health - Occupational Stress Questionnaire Feeling of Stress : To some extent Social Connections: Moderately Integrated (01/28/2024) Social Connection and Isolation Panel [NHANES] Frequency of Communication with Friends and Family: More than three times a week Frequency of Social Gatherings with Friends and Family: More than three times a week Attends Protestant Services: More than 4 times per year [...] TROPONINI 0.040* Procalcitonin: No results found for: "PROCAL" Urine Culture: Results for orders placed or [...] ug/ml COVID-19 PCR: No results for input(s): "COVID19" in the last 72 hours. I reviewed: [...] Directive: Prior Anticipated Discharge - Date - 11/20/24 - Location - Skilled Facility - Pending [...] Forte Mobile Relation: Child Secondary Emergency Contact: Costa Winston Mobile Relation: Child [employer] Mikel Winston : 1945 Primary Care Physician: KOMAL COHN DO The patient and/or family/surrogate voluntarily agreed to participate in ACP services. Patient s cognitive capacity: Lethargic, not following commands Code Status: [x_] [FULL CODE - Continue all advanced life support: CPR,intubation,invasive procedures] [_] [DNR-CCA - DO NOT do CPR, intubation] [_] [DNR-BANBURY OPERATOR - Comfort care only] [_] DNR form [...] Erinn Santoro MD Division of Hospitalist Medicine [facility] documented in this encounter [facility] 06-25-2024 Emergency department Note Emergency Department Encounter [facility] PCU 2E Patient: Mikel Winston : 1945 Date of Evaluation: 06/25/2024 ED PARESH Provider: Lawson Melvin PA-C EDcare was supervised by Dr. David who independently [...] voice. Patient denies pain at this time [place] I was wearing a N95, Surgical mask [...] 05/31/2024 Performed by Pravin Poole MD at [facility] Cardiac Cath/EP Lab CHOLECYSTECTOMY CORONARY [...] 10 min Stress: Stress Concern Present (01/28/2024) Spanish Sayner of Occupational Health - Occupational Stress Questionnaire Feeling of Stress : To some extent Social Connections: Moderately Integrated (01/28/2024) Social Connection and Isolation Panel [NHANES] Frequency of Communication with Friends and Family: More than three times a week Frequency of Social Gatherings with Friends and Family: More than three times a week Attends Protestant Services: More than 4 times per year [...] artery disease involving coronary bypass graft of oneida heart without angina pectoris SITagliptin (Januvia) 25 [...] 399 ms QTC Interval 507 ms P [place] 46 degrees QRS [place] -12 degrees T Wave [place] 173 degrees MT Interval 229 ms CBC auto differential Collection [...] Department Physician in the absence of a perinatology physician. see their note for interpretation of EKG. [...] Chronic renal insufficiency noted. Patient admitted to [facility]. Final Diagnosis: 1. Acute cystitis with [...] infusion (50 mL/hr IntraVENous New Bag 06/25/24 184) sodium chloride 0.9 % bolus 250 mL (0 mL IntraVENous Stopped 06/25/24 183) cefTRIAXone (Rocephin) 1,000 mg in sodium chloride 0.9 % 50 mL IVPB Mini-Bag Plus (1,000 mg IntraVENous New Bag 06/25/24 194) CRITICAL CARE TIME CONSULTS: None PROCEDURES: Unless otherwise noted below, none Procedures DISPOSITION/PLAN Admit 06/25/2024 07:54:55 PM PATIENT REFERRED TO: No follow-up provider specified. DISCHARGE MEDICATIONS: Current Discharge Medication List @[facility]([id number]:LAST:1)@ (Please note: Portions of this note were completed with a voice recognition program. Efforts were made to edit the dictations but occasionally words and phrases are mis-transcribed.) Form [id number] Lawson Melvin PA-C [employer] Lawson Melvin PA-C 06/25/242037 Cosigned by Kaiden David MD at 06/25/2024 9:14 PM EST Emergency Department Encounter [facility] ED Patient: Mikel Winston : [...] On evaluation patient only answers the word "Mikel" to any question that she is asked. [...] dictating provider for clarification.) Kaiden David MD [facility] Kaiden David MD 06/25/241941 documented in this encounter [facility] 06-11-2024 Note HNO ID: [id number] Author: KOMAL COHN DO Service: ? Author Type: Physician Type: Progress Notes Filed: 06/18/2024 19:25 Note Text: [facility] [place] Komal Cohn DO [address] [place] [address] Date of Evaluation: 06/11/2024 Patient Name: Mikel Winston : 1945 Chief Complaint: Patient presents with: Hospital Discharge: 06/01/24 [facility], pace maker placement. Skin Check: Skin tag right upper shoulder area Nursing Intake: There are no exam notes on file for this visit. Subjective Ms. Winston is a 78 year old female who presents with the following complaint(s): Patient presents to follow up from [facility] 05/29/24-06/01/24. Patient began to feel [...] 143/90 Pulse 92 Temp 97.8 Ht 5' 4" (1.63m) Wt 190 lb (86.2kg) SpO2 98% [...] pulses. Heart al (more content not included)... [facility] 06-11-2024 History of Present illness Narrative Images from the original note were not included. [facility] Medicine Brandi [place] DO Lalit [address] [place] [address] Date of Evaluation: 06/11/2024 Patient Name: Mikel Winston : 1945 Chief Complaint: Patient presents with: Hospital Discharge: 06/01/24 [facility], pace maker placement. Skin Check: Skin tag right upper shoulder area Nursing Intake: There are no exam notes on file for this visit. Subjective Ms. Winston is a 78 year old female who presents with the following complaint(s): Patient presents to follow up from [facility] 05/29/24-06/01/24. Patient began to feel [...] 143/90 Pulse 92 Temp 97.8 Ht 5' 4" (1.63m) Wt 190 lb (86.2kg) SpO2 98% [...] [place] June 11, 2024 1:49 PMProvider Attestation: Komal Anaya DO personally performed the [...] 2024 1:57 PM documented in this encounter [facility] 06-06-2024 Telephone encounter Note Christie with [...] know that but she will be here. [facility] 06-06-2024 Miscellaneous Notes [facility] with [facility] [...] will be here. documented in this encounter [facility] 06-01-2024 Nurse Note RN removed patients ivs. RN reviewed discharge instructions with patient. Patient belongings gathered. Patient ready for discharge waiting for ride. [facility] 06-01-2024 Nurse Note RN removed patients ivs. RN reviewed discharge instructions with patient. Patient belongings gathered. Patient ready for discharge waiting for ride. Report called to [facility] . Pt and family aware of transport to facility. documented in this encounter [facility] 06-01-2024 Miscellaneous Notes Patient Choice Patient Name: MIKEL WINSTON Date of : 1945 All Providers Sent Referral Name: [facility] At Home Phone: [phone] Address: [address] [place] [address] Start PACC Note Home Health Referral Educated patient on Home Care and services available. Patient offered choice of available HHC and agreeable to SN services with [facility] at Home - Home Care. Care Types: None Isolation Precautions: No active isolations Social Determinates of Health: Tobacco Use: Medium Risk (04/27/2024) Received from [facility] Patient History Smoking Tobacco Use: Former [...] is noted as yes - consider a STRADDLE BUGGY OPERATOR evaluation once the patient returns home. START PATIENT REGISTRATION INFORMATION Order Information Order Signing Physician: Damien Marie MD Service Ordered RN ?: Yes Service Ordered PT ?: No Service Ordered OT ?: No Service Ordered ST ?: No Service Ordered STRADDLE BUGGY OPERATOR?:No Service Ordered GRAPHICS INTERN?: No Following Physician: KOMAL COHN DO Following Physician Overseeing Physician: KOMAL COHN DO (Required for Residents only) Agreeable to Follow? Yes Date/Time of Call 06/01/24 11:27 AM, Spoke with: Staff Care Coordination Same Day SOC?: No Primary Care Physician: KOMAL LALIT, DO Primary Care Physician Primary Care Physician Address: [address] / [facility] [address] Visit Instructions: Recent patient would like Shira again. Declined PT but could probably use it. Service Discharge Location Type: Home with Home Care Service Facility Name: N/A Service Floor Facility: N/A Service Room No: N/A Demographics Patient Last Name: Ravindra Patient First Name: Mikel Language/Communication Barrier: n/a Service Address: [address] [place] [address] Service City: [facility] ST: [place] Service ZIP: [address] Service (home) Other phone numbers: Telephone Information: Emergency Contact: Extended Emergency Contact Information Primary Emergency Contact: Arnel Forte Mobile Relation: Child Secondary Emergency Contact: Costa Winston Mobile Relation: Child Admission Information Admit Date: 05/29/2024 Patient status at discharge: Inpatient Admitting Diagnosis: Elevated troponin [R79.89] Elevated brain natriuretic peptide (BNP) level [R79.89] Symptomatic sinus bradycardia [R00.1] Caregiver Information Caregiver First Name: n/a Caregiver Last Name: n/a Caregiver Relationship to Patient n/a Caregiver Phone Number: n/a Caregiver Notes: N/A Yi Chang Ou Sai IT-DotGT List No END PATIENT REGISTRATION INFORMATION Pt [...] Comments 8 y.o. female who follows Dr. 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 Discharge Date: 06/01/24 Referral Source-PACC: (Hospital/Unit): [facility] / W4-423/W4-423 A End PACC Note Problem: Knowledge Deficit Goal: Patient/family/caregiver demonstrates understanding of disease process, treatment plan, medications, and discharge instructions Outcome: Progressing Problem: Potential for Compromised Skin Integrity Goal: Skin Integrity is Maintained or Improved Outcome: Progressing Care Management Progress Note PM placed yesterday. Per therapy evaluation. Recommendation is SNF. Patient declines SNF. Agreeable to HC RN. Referral in [facility] to [facility]. Length of Stay (Days): 3 GMLOS: 2.3 [...] Goal: Nutritional status is improving Outcome: Progressing Bottle Gauger following case for Discharge Needs. Pt is currently not active with [facility], was discharged 05/09/2024. Care Managment Initial Assessment Date: 05/30/2024 Patient Name: Mikel Winston : 1945 Patient Information Source of Information: Patient Cognition/Language: WFL - Within Functional Limits Permission given to speak with patient quality control representative/caregiver as indicated: Yes (DTR Arnel Forte or (Bharti), ) Confirmation of Payer with patient/family: Yes Payer Name: [email or web address] : No Confirmation of Primary Care Physician: [...] Daily Living Prescription Coverage: Yes Pharmacy Used: [facility] in [facility] Medication Management: Assistance Type: Dose packaging [...] Additional Information: Chart reviewed. Patient [facility] for treatment of bradycardia. Noted to have possibly been taking too much beta partha at home. Atenolol currently on hold. Regular diet. Cardiology following -plan in place to hold atenolol and monitor. If AV block does not resolve may need pacemaker. If so, will need transferred to [facility] for this procedure. Met with patient [...] plan: Home with resumption of home care. [facility] did request pt/ot evaluations to Dr. Garza. Lilibeth Laurent RN The patient is Moderately Stable - Low risk of patient condition declining or worsening The patient's goals for the shift include to feel better/rest The clinical goals for the shift include stable heart rate documented in this encounter [facility] 06-01-2024 Note Formatting of this n ote might be different from the original. Patient Choice Patient Name: MIKEL WINSTON Date of : 1945 All Providers Sent Referral Name: [facility] At Home Phone: [phone] Address: [address] [place] [address] [facility] 06-01-2024 Note Formatting of this n ote might be different from the original. Patient Choice Patient Name: MIKEL WINSTON Date of : 1945 All Providers Sent Referral Name: [facility] Phone: [phone] Address: [address] [place] [address] [facility] 06-01-2024 History of Present illness Narrative BMP orders for 1 week post hospital prior to PCP appt. documented in this encounter [facility] 06-01-2024 Note Formatting of this n ote is different from the original. Start PACC Note Home Health Referral Educated patient on Home Care and services available. Patient offered choice of available HHC and agreeable to SN services with [facility] at Home - Home Care. Care Types: None Isolation Precautions: No active isolations Social Determinates of Health: Tobacco Use: Medium Risk (04/27/2024) Received from [facility] Patient History Smoking Tobacco Use: Former [...] is noted as yes - consider a STRADDLE BUGGY OPERATOR evaluation once the patient returns home. START PATIENT REGISTRATION INFORMATION Order Information Order Signing Physician: Damien Marie MD Service Ordered RN ?: Yes Service Ordered PT ?: No Service Ordered OT ?: No Service Ordered ST ?: No Service Ordered STRADDLE BUGGY OPERATOR?:No Service Ordered GRAPHICS INTERN?: No Following Physician: KOMAL COHN DO Following Physician Overseeing Physician: KOMAL COHN DO (Required for Residents only) Agreeable to Follow? Yes Date/Time of Call 06/01/24 11:27 AM, Spoke with: Staff Care Coordination Same Day SOC?: No Primary Care Physician: KOMAL COHN DO Primary Care Physician Primary Care Physician Address: [address] [place] [address] / [place] [address] Visit Instructions: Recent patient would like Shira again. Declined PT but could probably use it. Service Discharge Location Type: Home with Home Care Service Facility Name: N/A Service Floor Facility: N/A Service Room No: N/A Demographics Patient Last Name: Ravindra Patient First Name: Mikel Language/Communication Barrier: n/a Service Address: [facility] [address] Service City: [place] Service ST: [place] Service ZIP: [address] Service (home) Other phone numbers: Telephone Information: Emergency Contact: Extended Emergency Contact Information Primary Emergency Contact: JannArnel Mobile Relation: Child Secondary Emergency Contact: Costa Winston Mobile Relation: Child Admission Information Admit Date: 05/29/2024 Patient status at discharge: Inpatient Admitting Diagnosis: Elevated troponin [R79.89] Elevated brain natriuretic peptide (BNP) level [R79.89] Symptomatic sinus bradycardia [R00.1] Caregiver Information Caregiver First Name: n/a Caregiver Last Name: n/a Caregiver Relationship to Patient n/a Caregiver Phone Number: n/a Caregiver Notes: N/A Yi Chang Ou Sai IT-Tech List No END PATIENT REGISTRATION INFORMATION Pt [...] Comments 8 y.o. female who follows Dr. 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 Discharge Date: 06/01/24 Referral Source-PACC: (Hospital/Unit): [facility] / 4-423/W4-423 A End PACC Note [facility] 06-01-2024 Note Formatting of this n ote is different from the original. Start PACC Note Home Health Referral Educated patient on Home Care and services available. Patient offered choice of available HHC and agreeable to SN services with [facility] at Home - Home Care. Care Types: None Isolation Precautions: No active isolations Social Determinates of Health: Tobacco Use: Medium Risk (04/27/2024) Received from [facility] Patient History Smoking Tobacco Use: Former [...] is noted as yes - consider a STRADDLE BUGGY OPERATOR evaluation once the patient returns home. START PATIENT REGISTRATION INFORMATION Order Information Order Signing Physician: Damien Marie MD Service Ordered RN ?: Yes Service Ordered PT ?: No Service Ordered OT ?: No Service Ordered ST ?: No Service Ordered STRADDLE BUGGY OPERATOR?:No Service Ordered GRAPHICS INTERN?: No Following Physician: KOMAL COHN DO Following Physician Overseeing Physician: KOMAL COHN DO (Required for Residents only) Agreeable to Follow? Yes Date/Time of Call 06/01/24 11:27 AM, Spoke with: Staff Care Coordination Same Day SOC?: No Primary Care Physician: KOMAL COHN DO Primary Care Physician Primary Care Physician Address: [address] [place] [address] / [place] [address] Visit Instructions: Recent patient would like Shira again. Declined PT but could probably use it. Service Discharge Location Type: Home with Home Care Service Facility Name: N/A Service Floor Facility: N/A Service Room No: N/A Demographics Patient Last Name: Ravindra Patient First Name: Mikel Language/Communication Barrier: n/a Service Address: [address] [place] [address] Service City: [place] Service ST: [place] Service ZIP: [address] Service (home) Other phone numbers: Telephone Information: Emergency Contact: Extended Emergency Contact Information Primary Emergency Contact: Arnel Forte Mobile Relation: Child Secondary Emergency Contact: Costa Winston Mobile Relation: Child Admission Information Admit Date: 05/29/2024 Patient status at discharge: Inpatient Admitting Diagnosis: Elevated troponin [R79.89] Elevated brain natriuretic peptide (BNP) level [R79.89] Symptomatic sinus bradycardia [R00.1] Caregiver Information Caregiver First Name: n/a Caregiver Last Name: n/a Caregiver Relationship to Patient n/a Caregiver Phone Number: n/a Caregiver Notes: N/A Yi Chang Ou Sai IT-Tech List No END PATIENT REGISTRATION INFORMATION Pt [...] Comments 8 y.o. female who follows Dr. 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 Discharge Date: 06/01/24 Referral Source-PACC: (Hospital/Unit): [facility] / W4-423/W4-423 A End PACC Note [facility] 06-01-2024 Plan of care note Problem: Knowledge Deficit Goal: Patient/family/caregiver demonstrates understanding of disease process, treatment plan, medications, and discharge instructions Outcome: Progressing Problem: Potential for Compromised Skin Integrity Goal: Skin Integrity is Maintained or Improved Outcome: Progressing [facility] 06-01-2024 Note [facility] 06-01-2024 Hospital course Narrative Images from the [...] (2018) and PCI (2018, moderate aortic stenosis, T2DM, CKD stage 3, HTN, and hypothyroidism who presented to [place] ED 05/29/24 for bilateral leg swelling, shortness of breath and fatigue x1 week, noted her pulse ox at home with HR of 35 BPM. EKG on arrival showed 2:1 AV block HR 30's, her atenolol was held at that time in hopes the bradycardia would resolve. Decision was made to transfer to [facility] 05/30 for PPM placement. She [...] Nephrology appt Jun 11 @ 2:20 in [place], PCP BMP in one week post hospital [...] Complexity: follow up within 7-14 calendar days (33085) [] Severe Complexity: follow up within 7 calendar days (95908) FOLLOW UP TESTING, PENDING RESULTS OR REFERRALS AT TRANSITIONAL CARE VISIT: [] Yes [x] No PENDING STUDIES: None DISPOSITION: Home [facility] up with [facility] [address] [place] [address] [address] Go on 06/20/2024 wound check appt time @ 1:00pm Meet Madonna Poole MD [address] [facility] [address] Go on 08/31/2024 appt time @ 1:15pm [...] Meeks CNP 06/01/2024, 1:08 PM Cosigned by Damien Marie MD at 06/01/2024 3:10 PM EDT documented in this encounter [facility] 06-01-2024 History of Present illness Narrative Images from the original note were not included. PHYSICAL THERAPY [facility] Treatment Note Name/MRN: Mikel Winston ([id number]) Date of : 1945 Age: 78 y.o. 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 PHYSICAL THERAPY [facility] Re-Evaluation Name/MRN: Mikel Winston ([id number]) Evaluation Date: 05/31/2024 Date of : 1945 Admission Date: 05/29/2024 6:28 PM Age: 78 y.o. Room[facility]Bed: [facility] A Discharge Recommendation: Intermediate Facility Equipment Needed: No Assessment IMPRESSION: PT re-eval completed; pt transferred from [facility] for impending pacemaker placement. Min [...] artery disease involving coronary bypass graft of oneida heart without angina pectoris 09/30/2022 Nonrheumatic aortic [...] Responsibilities: Independent Receives Help From: Family Active Liquor Commissioner: No Prior Level of Function Prior Level [...] Raw Score (No Stairs) : 15 JH-HLM -HLM Score: Walked 25 ft or more (i.e. [...] of Care supervision is transferred to a [facility] Therapy Services Physical Therapist. Goals and/or treatment plan was established in collaboration with patient/family/other representatives. [facility] and [facility] [place] [facility] Cardiology /Electrophysiology Progress Note HPI / Interval [...] 42* 57* CREATININE 2.01* 2.53* Recent Labs 05/29/24185505/31/24 0212 WBC 6.3 6.4 HGB 10.1* 8.8* HCT 31.2* 27.1* MCV 97.8 97.5 PLT 111* 85* Recent Labs 05/29/24185505/29/243 05/30/24 0111 TROPONINI 0.124* 0.149* 0.145* Recent Labs 05/29/241855 BNP 3,820* No results for input(s): "TRIG", "HDL", "LDLCALC", "CHOL" in the last 72 hours. No results [...] Ref Range Status 12/08/2022 45 % Final Damien Marie MD Date Of Service 05/31/2024 Images from the original note were not included. OCCUPATIONAL THERAPY [facility] Name/MRN: Mikel Winston ([id number]) Date: 05/31/2024 Orders received for OT evaluation and treat. Per medical chart, pt scheduled for PPM today. Will hold therapy and continue to follow. Dino Coelho OT Nutrition rescreen completed. Chart reviewed. 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 Brief Progress Note: Mrs. Winston is a pleasant 78 YO female who presented to [facility] from [facility] after being seen by cardiology today for symptomatic bradycardia and was found to be in 2:1 Mobitz type II AV Block. She was transported to [facility] for EP evaluation and PPM placement. She is known to Dr. Rojas and has a PMHx of coronary artery disease with CABG in 2009, PCI in 2018, mild aortic stenosis, CKD [...] 2:1 AV Block -Per sign out Dr. Rojas had spoken with an EP attending her [...] were not included. PHYSICAL THERAPY [facility] Initial Evaluation Name/MRN: Mikel Winston ([id number]) Evaluation Date: 05/30/2024 Date of : 1945 Admission Date: 05/29/2024 6:28 PM Age: 78 y.o. Room/Bed: [facility] B Discharge Recommendation: Intermediate Facility, Continue to assess pending progress Equipment [...] lower extremity 01/28/2024 BARRY (acute kidney injury) ([facility] 11/18/2022 UTI (urinary tract infection) 11/18/2022 Coronary artery disease involving coronary bypass graft of oneida heart without angina pectoris 09/30/2022 Nonrheumatic aortic valve stenosis 09/30/2022 Essential hypertension 09/30/2022 Dyslipidemia 09/30/2022 Generalized edema 01/27/2022 Diabetes ([facility]) 01/27/2022 Medical Precautions: No active isolations Proper [...] Responsibilities: Independent Receives Help From: None Active Liquor Commissioner: No Prior Level of Function Prior Level [...] of Care supervision is transferred to a [facility] Therapy Services Physical Therapist. Goals and/or treatment plan was established in collaboration with patient/family/other representatives. Images from the original note were not included. [facility] CARDIAC PROGRESSIVE CARE UNIT PCU [address] [place] [address] Dept: [phone] Contacted the electrophysiology service at the [facility]. Our v block saw operator reviewed the consult and does not expect the 2-1 AV block to improve with time. Will arrange for transfer to [facility] for planned pacemaker tomorrow. Hospitalist Progress Note 05/30/[phone]: Please page me ([phone]) for patient care issues. [phone]: Please page [facility] Hospitalist for any issues. Subjective: Admit Date: 05/29/2024 PCP: KOMAL COHN DO Room#: B2-268/B2-268 Winston Winston is a 78 y.o. female who [...] the phone and they recommended transfer to [facility] for possible pacemaker. Discussed with patient and [...] ANIONGAP 11 LIVER PROFILE:No results for input(s): "AST", "ALT", "BILITOT", "ALKPHOS", "PROT" in the last 72 hours. No lab exists for component: LABALBU PT/INR: No results for input(s): "PROTIME", "INR" in the last 72 hours. CARDIAC ENZYMES: Recent Labs 05/29/24185505/29/243 05/30/24 0111 TROPONINI 0.124* 0.149* 0.145* Procalcitonin: No results found for: "PROCAL" Objective: Vitals: BP (!) 110/45 Pulse (!) 35 Temp 36.4 C (97.5 F) (Temporal) Resp 18 Ht 5' 4" (1.626 m) Wt 213 lb (96.6 kg) [...] Bradycardia= tele, cardiology consult reviewed, transferred to [facility] Mobitz type II block-stopped atenolol Elevated troponin, [...] was consulted and they recommended transfer to [facility], for possible pacemaker placement Reached out to [facility] and she will be admitted to Dr. [...] Forte Mobile Relation: Child Secondary Emergency Contact: RavindraCosta Mobile Relation: Child Advance Directive: Full Code Discharge planning: TBD Louise Garza MD Division of Hospitalist Medicine Inpatient Medical Services/[facility] Images from the original note were not included. [facility] ED [address] [place] [address] Dept: [phone] I was asked about this patient's bradycardia. [...] all resolve. RBC documented in this encounter [facility] 06-01-2024 Note Formatting of this n ote might be different from the original. Care Management Progress Note PM placed yesterday. Per therapy evaluation. Recommendation is SNF. Patient declines SNF. Agreeable to HC RN. Referral in [facility] to [facility]. Length of Stay (Days): 3 GMLOS: 2.3 [facility] 06-01-2024 Note Formatting of this n ote might be different from the original. Care Management Progress Note PM placed yesterday. Per therapy evaluation. Recommendation is SNF. Patient declines SNF. Agreeable to HC RN. Referral in [facility] to [facility]. Length of Stay (Days): 3 GMLOS: 2.3 [facility] [facility] 06-01[facility]24 Plan of care note The patient is Moderately Stable - Low risk of patient condition declining or worsening The patient's goals for the shift include comfort The clinical goals for the shift include no complications with new pacer and surgical site Goals met [facility] 05-31-2024 Note Procedure Details PROCEDURE: Implantation of a dual chamber permanent pacemaker. ASSISTANTS: None CATHETERS AND/OR DRAINS: Not applicable SPECIMENS: None APPROACH: Left Axillary Vein DEVICE IMPLANTED: Medtronic [id number] LEAD INFORMATION: RA: Medtronic 5076-52, SN: [id number], P-wave 2.0V, Impedance 608ohms, Threshold 1.5V@0.4ms RV: Medtronic 537120, SN: [id number], No intrinsic R-wave, Impedance 1007ohms, Threshold 0.5V@0.4ms [...] morphology. The sheath was split using the [employer] splitting tool. The right atrial lead was [...] with patient who consented to blood products. [employer] Phone: 05-31-2024 Note Formatting of this n ote might be different from the original. Sedation Plan ASA class 2 - patient with mild systemic disease Mallampati class: II - soft palate, uvula, fauces visible. Sedation plan: moderate (conscious sedation) Risks, benefits, and alternatives discussed with patient. Use of blood products discussed with patient who consented to blood products. [employer] Phone: 05-31-2024 Hospital Discharge instructions Kyung Hogan APRN - STEAM TRAP WORKER - 05/31/2024 2:54 PM EDT Post Pacemaker [...] may take a sponge bath up until _06/01/24 , then you may shower. No swimming [...] in CPR. Call the Device [facility] at [phone] if you have any questions regarding your [...] Forte Mobile Relation: Child Secondary Emergency Contact: Costa Winston Mobile Relation: Child Past Surgical History: Past Surgical History: Procedure Laterality Date APPENDECTOMY CARDIAC ELECTROPHYSIOLOGY PROCEDURE N/A 05/31/2024 Performed by Pravin Poole MD at [facility] Cardiac Cath/EP Lab CHOLECYSTECTOMY CORONARY [...] artery disease involving coronary bypass graft of one[place] heart without angina pectoris Nonrheumatic aortic valve stenosis Essential hypertension Dyslipidemia BARRY (acute kidney injury) (HCC) UTI (urinary tract infection) Cellulitis of right lower extremity Isolation/Infection: No active isolations No active infections Nurse Assessment: Last Vital Signs: BP (!) 112/41 (BP Location: Right arm, Patient Position: Sitting) Pulse 62 Temp 36.4 C (97.5 F) (Temporal) Resp 17 Ht 1.626 m (5' 4") Wt 96.6 kg (213 lb) SpO2 95% BMI 36.56 kg/m Last documented pain score (0-10 scale): Last Weight: Wt Readings from Last 1 Encounters: 05/29/24 96.6 kg (213 lb) Mental Status: {FAM Patient Mental Status:94658} IV Access: {[facility] IV Access:12596} Nursing Mobility/ADLs: Walking {CATY ADL:::"Independent"} Transfer {CATY ADL:::"Independent"} Bathing {CATY ADL:::"Independent"} Dressing {CATY ADL:::"Independent"} Toileting {CATY ADL:::"Independent"} Feeding {CATY ADL:::"Independent"} End Frazer {CATY ADL:81700::"Independent"} Med Delivery {yes/no:40825} Wound Care Documentation and Therapy: Wound/Incision 05/31/24 Chest Left (Active) Number of days: 0 Elimination: Continence: Bowel: {yes/no:84268} Bladder: {yes/no:60727} Urinary Catheter: {FAM Urinary Catheter:09642} Colostomy/Ileostomy/Ileal Conduit: {YES / NO:} Date of Last BM: No intake or output data in the 24 hours ending 06/01/24 1139 No intake/output data recorded. Safety Concerns: {FAM Safety Concerns:29005} Impairments/Disabilities: {FAM Impairments/Disabilities:98903} Nutrition Therapy: Current Nutrition Therapy: {FAM Diet List:41916} Routes of Feeding: {routes of feedin} Liquids: {liquid consistency:77553} Daily Fluid Restriction: {daily fluid restriction:66902} Last Modified Barium Swallow with Video (Video Swallowing Test): {done not done:39817} Treatments at the Time of Hospital Discharge: Respiratory Treatments: Oxygen Therapy: {Therapy; copd oxygen:57989} Ventilator: {FAM Ventilator:97522} Rehab Therapies: {GEN THERAPY DISCIPLINE SCAL:0822009} Weight Bearing Status/Restrictions: {POD WEIGHT BEARIN} Other Medical Equipment (for information only, NOT a DME order): {Assistive Devices DME:52881} Other Treatments: Patient's personal belongings (please select all that are sent with patient): {FAM Patient Belongings:42058} RN SIGNATURE: {E-signature:18384} CASE MANAGEMENT/SOCIAL WORK SECTION Inpatient Status Date: Discharging to Facility/ Agency Name: [facility] Address: [address] [place] [address] Dialysis Facility (if applicable) Name: Address: Dialysis Schedule: Phone: Fax: [facility] signature: {E-signature:50223} PHYSICIAN SECTION Name: Mikel Winston Prognosis: {Rehab Prognosis:00790} Condition at Discharge: {Patient Condition:69141} Rehab Potential (if transferring to Rehab): {Rehab Prognosis:15039} Recommended Labs or Other Treatments After Discharge: The individual is being admitted to a nursing facility directly from an [facility] or a unit of a hospital that is not operated by or licensed by [facility] under section 5119.14 or 5160-3-15.1 5 The individual requires the level of services provided by a nursing facility for the condition for which he or she was treated in the hospital and, Physician Certification: I certify the above information and transfer of Mikel Winston is necessary for the continuing treatment of the diagnosis listed and that she requires {FAM Level of Care:57474} for {greater less than:50774} 30 days. Update Admission H&P: {FAM Changes in H&P:20546} PHYSICIAN SIGNATURE: {E-signature:78121} documented in this encounter [facility] 05-31-2024 Note IMPRESSION: Predominant 2:1 AV block Likely type 2 Right bundle branch block LAFB Poor R Wave progression Electronically Signed On 05-31-2024 10:23:14 EDT by Huy Frederick [facility] 05-31-2024 Plan of care note Problem: [...] integrity is maintained or improved Outcome: Progressing [facility] 05-31-2024 Note OCCUPATIONAL THERAPY [facility] Name/MRN: Mikel Winston ([id number]) Date: 05/31/2024 Orders received for OT evaluation and treat. Per medical chart, pt scheduled for PPM today. Will hold therapy and continue to follow. Dino Coelho, OT [facility] 05-31-2024 Note Formatting of this n ote might be different from the original. Care Management Progress Note Patient now on . Previous noted. NPO-Cardiology following for possible pacemaker. Per therapy evaluation. Recommendation is SNF. I will discuss this with patient today. Length of Stay (Days): 2 GMLOS: No GMLOS Documented [facility] 05-31-2024 Note Formatting of this n ote might be different from the original. Care Management Progress Note Patient now on . Previous noted. NPO-Cardiology following for possible pacemaker. Per therapy evaluation. Recommendation is SNF. I will discuss this with patient today. Length of Stay (Days): 2 GMLOS: No GMLOS Documented [facility] 05-31-2024 Consult note Associated Order (s): IP CONSULT TO CARDIOLOGY [facility] [place] [facility] [place] /Electrophysiology Consult Note Reason for Consult/Chief Complaint: symptomatic bradycardia, Mobitz type 2 AV block Referring provider: Dr. Marie Established perinatology physician: Crystal History of Present Illness: Mikel Winston is a 78 y.o. female who follows Dr. 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 She reports [...] 2.01* 2.53* EGFR 25.0* 19.0* Recent Labs 05/29/24 18505/29/24 2203 05/30/24 0111 TROPONINI 0.124* 0.149* 0.145* Recent Labs 05/29/24 18505/31/24 0212 WBC 6.3 6.4 HGB 10.1* 8.8* HCT 31.2* 27.1* MCV 97.8 97.5 PLT 111* 85* Lab Results Component Value Date HGBA1C 6.1 (H) 01/28/2024 Lab Results Component Value Date TSH 3.912 05/30/2024 No results found for: "CHOL" No results found for: "HDL" No results found for: "LDLCALC" No results found for: "TRIG" No results found for: "CHOLHDL" No results found for: LDLCHOLESTER Recent Labs 05/29/241855 BNP 3,820* No results for input(s): "INR" in the last 72 hours. No results found for: "IRON", "TIBC", "FERRITIN" Radiology: CXR: personally reviewed: Cardiac Tests Personally [...] DATE of SERVICE: 05/31/2024 Cosigned by Wil Portillo MD at 06/01/2024 4:23 PM EDT [facility] Phone: 05-31-2024 Consult note Associated Order (s): IP CONSULT TO CARDIOLOGY [facility] [place] [facility] Cardiology /Electrophysiology Consult Note Reason for Consult/Chief Complaint: symptomatic bradycardia, Mobitz type 2 AV block Referring provider: Dr. Marie Established perinatology physician: Crystal History of Present Illness: Mikel Winston is a 78 y.o. female who follows Dr. 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 She reports [...] and well perfused Laboratory Tests: Recent Labs 05/29/24185505/31/24211 NA 137 136 K 4.0 4.1 CL 106 108* CO2 20* 21* BUN 42* 57* CREATININE 2.01* 2.53* EGFR 25.0* 19.0* Recent Labs 05/29/24185505/29/24 2203 05/30/24 0111 TROPONINI 0.124* 0.149* 0.145* Recent Labs 05/29/24185505/31/24211 WBC 6.3 6.4 HGB 10.1* 8.8* HCT 31.2* 27.1* MCV 97.8 97.5 PLT 111* 85* Lab Results Component Value Date HGBA1C 6.1 (H) 01/28/2024 Lab Results Component Value Date TSH 3.912 05/30/2024 No results found for: "CHOL" No results found for: "HDL" No results found for: "LDLCALC" No results found for: "TRIG" No results found for: "CHOLHDL" No results found for: LDLCHOLESTER Recent Labs 05/29/241855 BNP 3,820* No results for input(s): "INR" in the last 72 hours. No results found for: "IRON", "TIBC", "FERRITIN" Radiology: CXR: personally reviewed: Cardiac Tests Personally [...] DATE of SERVICE: 05/31/2024 Cosigned by Wil Portillo MD at 06/01/2024 4:23 PM EDT Associated Order(s): IP CONSULT TO CARDIOLOGY Images from the original note were not included. [facility] CARDIAC PROGRESSIVE CARE UNIT [address] [place] [id number] Dept: [phone] This is a 78-year-old woman seen for [...] should probably transferred her to the [facility] in preparation of the pacemaker on Tuesday RBC documented in this encounter [facility] 05-31-2024 Plan of care note The patient is Moderately Stable - Low risk of patient condition declining or worsening The patient's goals for the shift include no chest pain The clinical goals for the shift include no symptomatic bradycardia Goals met over the shift [facility] 05-30-2024 Plan of care note The patient [...] Goal: Nutritional status is improving Outcome: Progressing [facility] 05-30-2024 Nurse Note Report called to [facility] . Pt and family aware of transport to facility. [facility] 05-30-2024 Note Formatting of this n ote might be different from the original. Bottle Gauger following case for Discharge Needs. Pt is currently not active with [facility] at Home, was discharged 05/09/2024. [facility] 05-30-2024 Note Formatting of this n ote might be different from the original. Bottle Gauger following case for Discharge Needs. Pt is currently not active with [facility] at Home, was discharged 05/09/2024. T [facility] 05-30-2024 Note Formatting of this n ote might be different from the original. Care Managment Initial Assessment Date: 05/30/2024 Patient Name: Mikel Winston : 1945 Patient Information Source of Information: Patient Cognition/Language: WFL - Within Functional Limits Permission given to speak with patient quality control representative/caregiver as indicated: Yes (DTR Arnel Forte or (Bharti), ) Confirmation of Payer with patient/family: Yes Payer Name: [email or web address] [place]: No Confirmation of Primary Care Physician: Confirmed [...] Daily Living Prescription Coverage: Yes Pharmacy Used: [facility] in [facility] Medication Management: Assistance Type: Dose packaging [...] Additional Information: Chart reviewed. Patient admitted to [facility] for treatment of bradycardia. Noted to have possibly been taking too much beta partha at home. Atenolol currently on hold. Regular diet. Cardiology following -plan in place to hold atenolol and monitor. If AV block does not resolve may need pacemaker. If so, will need transferred to [facility] for this procedure. Met with patient [...] plan: Home with resumption of home care. [facility] did request pt/ot evaluations to Dr. Garza. Lilibeth Laurent RN [facility] 05-30-2024 Note Formatting of this n ote might be different from the original. Care Managment Initial Assessment Date: 05/30/2024 Patient Name: Mikel Winston : 1945 Patient Information Source of Information: Patient Cognition/Language: WFL - Within Functional Limits Permission given to speak with patient quality control representative/caregiver as indicated: Yes (ZELDA Forte or ([facility]), ) Confirmation of Payer with patient/family: Yes Payer Name: [email or web address] : No Confirmation of Primary Care Physician: [...] Daily Living Prescription Coverage: Yes Pharmacy Used: [facility] in [facility] Medication Management: Assistance Type: Dose packaging [...] Additional Information: Chart reviewed. Patient admitted to [facility] for treatment of bradycardia. Noted to have possibly been taking too much beta partha at home. Atenolol currently on hold. Regular diet. Cardiology following -plan in place to hold atenolol and monitor. If AV block does not resolve may need pacemaker. If so, will need transferred to [facility] for this procedure. Met with patient [...] plan: Home with resumption of home care. [facility] did request pt/ot evaluations to Dr. Garza. Lilibeth Laurent RN [facility] 05-30-2024 Consult note Associated Order (s): IP CONSULT TO CARDIOLOGY Images from the original note were not included. [facility] CARDIAC PROGRESSIVE CARE UNIT [address] [facility] [id number] Dept: [phone] This is a 78-year-old woman seen for [...] should probably transferred her to the [facility] in preparation of the pacemaker on Tuesday RBC T [facility] 05-30-2024 Plan of care note The patient is Moderately Stable - Low risk of patient condition declining or worsening The patient's goals for the shift include to feel better/rest The clinical goals for the shift include stable heart rate [facility] 05-29-2024 History and physical note History and Physical [facility] Mikel Winston : 1945 AGE 78 y.o. YEARS Note Date 05/29/2024 Primary Care Physician:KOMAL COHN DO Current Providers as of 05/29/2024 PCP: Komal Cohn DO Referring Provider: not found, starting on TueMay 29, 2024 12:00 AM Attending Provider: Kimi Pokl DO, starting on TueMay 29, 2024 6:33 PM (Active) Registered Nurse: Yolanda Ag RN, starting on TueMay 29, 2024 6:28 PM (Active) Physician Carpentry Foreman: Lakeisha Carter PA-C, starting on TueMay 29, [...] Vision quality RESP: Abdominal Pain n : SOB/WIESS little Nausea some Hematuria n Cough A [...] (97.4 F) (Temporal) Resp 20 Ht 5' 4" (1.626 m) Wt 197 lb (89.4 kg) [...] 05/29/2024 684 QTC Interval 05/29/2024 517 P [place] 05/29/2024 -26 QRS [place] 05/29/2024 -59 T Wave [place] 05/29/2024 142 MT Interval 05/29/2024 266 NT PRO BNP 05/29/2024 3,820 (H) SARS-CoV-2 05/29/2024 Not Detected Respiratory Syncytial Vi* 05/29/2024 Not Detected Influenza A 05/29/2024 Not Detected Influenza B 05/29/2024 Not Detected MAGNESIUM 05/29/2024 1.9 EKG Encounter Date: 05/29/24 ECG 12 lead (Now) Result Value Heart Rate 34 QRSD Interval 177 QT Interval 684 QTC Interval 517 P [place] -26 QRS [place] -59 T Wave [place] 142 MT Interval 266 Impression Sinus bradycardia Prolonged MT interval Right bundle branch block LVH with [...] pharmacologic and mechanical contraindicated 05/29/2024 Mikel Winston [id number] Any scheduled follow up appointments Future Appointments Date Time Provider Department Center 03/27/2025 1:00 PM Jose Rojas MD [facility] Extended Emergency Contact Information Primary Emergency Contact: Arnel Forte Mobile Relation: Child Secondary Emergency Contact: Costa Winston Mobile Relation: Child Portions of this note may be electronically transcribed. Please forward a copy of this H&P to the primary care physician. [facility] [employer] Work Phone: 05-29-2024 Note [employer] [facility] 05-29-2024 History and physical note History and Physical [facility] Mikel Winston : 1945 AGE 78 y.o. YEARS Note Date 05/29/2024 Primary Care Physician:KOMAL COHN DO Current Providers as of 05/29/2024 PCP: Komal Cohn DO Referring Provider: not found, starting on TueMay 29, 2024 12:00 AM Attending Provider: Kimi Polk DO, starting on TueMay 29, 2024 6:33 PM (Active) Registered Nurse: Yolanda Ag, JANES, starting on TueMay 29, 2024 6:28 PM (Active) Physician Carpentry Foreman: Lakeisha Carter PA-C, starting on TueMay 29, [...] (97.4 F) (Temporal) Resp 20 Ht 5' 4" (1.626 m) Wt 197 lb (89.4 kg) [...] 05/29/2024 684 QTC Interval 05/29/2024 517 P [place] 05/29/2024 -26 QRS [place] 05/29/2024 -59 T Wave [place] 05/29/2024 142 MT Interval 05/29/2024 266 NT PRO BNP 05/29/2024 3,820 (H) SARS-CoV-2 05/29/2024 Not Detected Respiratory Syncytial Vi* 05/29/2024 Not Detected Influenza A 05/29/2024 Not Detected Influenza B 05/29/2024 Not Detected MAGNESIUM 05/29/2024 1.9 EKG Encounter Date: 05/29/24 ECG 12 lead (Now) Result Value Heart Rate 34 QRSD Interval 177 QT Interval 684 QTC Interval 517 P [place] -26 QRS [place] -59 T Wave [place] 142 MT Interval 266 Impression Sinus bradycardia Prolonged MT interval Right bundle branch block LVH with [...] pharmacologic and mechanical contraindicated 05/29/2024 Mikel Winston [id number] Any scheduled follow up appointments Future Appointments Date Time Provider Department Center 03/27/2025 1:00 PM Jose Rojas MD [facility] Extended Emergency Contact Information Primary Emergency Contact: Arnel Forte Mobile Relation: Child Secondary Emergency Contact: Costa Winston Mobile Relation: Child Portions of this note may be electronically transcribed. Please forward a copy of this H&P to the primary care physician. documented in this encounter [facility] 05-29-2024 Emergency department Note Emergency Department Encounter [facility] ED Patient: Mikel Winston : [...] by me: Sinus bradycardia, rate 34, prolonged MT interval, old inferior infarct Labs with elevated troponin, hemoglobin 10.1 similar to prior. BNP elevated at 3820. BUN/creatinine consistent with baseline. Consulted cardiology and they were comfortable with the patient being admitted at [place] as long as she was hemodynamically stable. Patient has not had any hypotension or tachypnea here. She appears clinically well aside from her bradycardia. Will admit to [facility]. Diagnostics interpreted by me: EKG; see [...] [employer] Kimi Polk DO 06/01/24 0717 EMERGENCY DEPARTMENT [...] 10 min Stress: Stress Concern Present (01/28/2024) [employer] - Occupational Stress Questionnaire Feeling of Stress : To some extent Social Connections: Moderately Integrated (01/28/2024) Social Connection and Isolation Panel [NHANES] Frequency of Communication with Friends and Family: More than three times a week Frequency of Social Gatherings with Friends and Family: More than three times a week Attends Protestant Services: More than 4 times per year [...] Homeless in the Last Year: No SCREENINGS Garber Coma Scale Best Eye Response: Spontaneous Best Verbal Response: Oriented Best Motor Response: Follows commands Lila Coma Scale Score: 15 PHYSICAL EXAM ED [...] In compliance with this authorization, please visit www.fda.gov/media/179463/download or www.fda.gov/media/302332/download to access the applicable information sheets. MAGNESIUM [...] kg (197 lb) Height: 1.626 m (5' 4") Medications Insulin Lispro (Humalog) injection 0-6 Units [...] Lab workup results: Initial troponin 0.124, BNP 5701-0700 x 4 months ago. Creatinine 2.01 which [...] In compliance with this authorization, please visit www.fda.gov/media/435189/download or www.fda.gov/media/173131/download to access the applicable information sheets. MAGNESIUM [...] mg Consulted cardiology. I spoke to Dr. Rojas. Patient able to be admitted to medicine at [facility] as long as she is hemodynamically stable and is not near syncopal. Will reassess in the a.m. to determine need for transfer to [facility]. Patient be admitted to medicine with cardiology [...] 7:05 AM EDT documented in this encounter [facility] 05-29-2024 Physician Emergency department Note Emergency Department Encounter [facility] ED Patient: Mikel Winston : [...] by me: Sinus bradycardia, rate 34, prolonged MT interval, old inferior infarct Labs with elevated troponin, hemoglobin 10.1 similar to prior. BNP elevated at 3820. BUN/creatinine consistent with baseline. Consulted cardiology and they were comfortable with the patient being admitted at [place] as long as she was hemodynamically stable. Patient has not had any hypotension or tachypnea here. She appears clinically well aside from her bradycardia. Will admit to [facility]. Diagnostics interpreted by me: EKG; see [...] [employer] Kimi Polk DO 06/01/24 0717 [facility] Work Phone: 05-29-2024 Physician Emergency department Note EMERGENCY [...] 10 min Stress: Stress Concern Present (01/28/2024) [employer]ational [employer] - Occupational Stress Questionnaire Feeling of Stress : To some extent Social Connections: Moderately Integrated (01/28/2024) Social Connection and Isolation Panel [NHANES] Frequency of Communication with Friends and Family: More than three times a week Frequency of Social Gatherings with Friends and Family: More than three times a week Attends Protestant Services: More than 4 times per year [...] Homeless in the Last Year: No SCREENINGS Garber Coma Scale Best Eye Response: Spontaneous Best Verbal Response: Oriented Best Motor Response: Follows commands Lila Coma Scale Score: 15 PHYSICAL EXAM ED [...] In compliance with this authorization, please visit www.fda.gov/media/395855/download or www.fda.gov/media/588054/download to access the applicable information sheets. MAGNESIUM [...] kg (197 lb) Height: 1.626 m (5' 4") Medications Insulin Lispro (Humalog) injection 0-6 Units [...] Lab workup results: Initial troponin 0.124, BNP [id number] x 4 months ago. Creatinine 2.01 which [...] In compliance with this authorization, please visit www.fda.gov/media/699372/download or www.fda.gov/media/920050/download to access the applicable information sheets. MAGNESIUM [...] mg Consulted cardiology. I spoke to Dr. Rojas. Patient able to be admitted to medicine at [facility] as long as she is hemodynamically stable and is not near syncopal. Will reassess in the a.m. to determine need for transfer to [facility]. Patient be admitted to medicine with cardiology [...] Polk DO at 06/01/2024 7:05 AM EDT [facility] 04-27-2024 Note HNO ID: [id number] Author: KOMAL COHN DO Service: ? Author Type: Physician Type: Progress Notes Filed: 05/06/2024 17:10 Note Text: [facility] [place] Komal Cohn DO [address] [place] [address] Date of Evaluation: 04/27/2024 Patient Name: Mikel [...] by the patient and a relative. No industrial roofer was used. Neck Pain Pertinent negatives include [...] 130/64 Pulse 61 Temp 98.1 Ht 5' 4" (1.63m) Wt 198 lb (89.8kg) SpO2 96% [...] Extraocular movements int (more content not included)... [facility] 04-27-2024 History of Present illness Narrative Images from the original note were not included. [facility] [place] DO Lalit [address] [place] [address] Date of Evaluation: 04/27/2024 Patient Name: Mikel [...] by the patient and a relative. No industrial roofer was used. Neck Pain Pertinent negatives include [...] 130/64 Pulse 61 Temp 98.1 Ht 5' 4" (1.63m) Wt 198 lb (89.8kg) SpO2 96% [...] ckd, without long-term current use of insulin ([facility]) - , ICD10: E11.22,N18.4 - Controlled - [...] kidney disease) stage 4, GFR 15-29 ml/min ([facility]) - ICD9: 585.4, ICD10: N18.4 - Managed [...] 2024 4:33 PM documented in this encounter [facility] 04-18-2024 Miscellaneous Notes Good news. Her aortic valve stenosis is not severe, moderate. Her LV systolic functions is still normal. As long as she is feeling okay we can simply follow this. documented in this encounter [facility] 04-18-2024 Progress note Formatting of t his note might be different from the original. Good news. Her aortic valve stenosis is not severe, moderate. Her LV systolic functions is still normal. As long as she is feeling okay we can simply follow this. [facility] 04-13-2024 Telephone encounter Note Patient called requesting the following refill Refill(s) Requested: Requested Prescriptions Pending Prescriptions Disp Refills levothyroxine (SYNTHROID) 50 mcg tablet [Pharmacy Med Name: LEVOTHYROXINE 50 MCG TABLET] 90 tablet 1 Sig: take 1 tablet by mouth every day ALLERGIES Allergen Reactions Codeine Hives, Rash Codeine Sulfate Unknown (home) [phone] (cell) Last Office Visit Date: 03/16/2024 Last Distance Health Visit: Visit date not found Future Appointment: 04/13/2024 The patients preferred pharmacy has been captured for this encounter? yes Request is for script(s) to be escript to pharmacy. Grace Linda LPN [facility] 04-13-2024 Miscellaneous Notes Patient called requesting the following refill Refill(s) Requested: Requested Prescriptions Pending Prescriptions Disp Refills levothyroxine (SYNTHROID) 50 mcg tablet [Pharmacy Med Name: LEVOTHYROXINE 50 MCG TABLET] 90 tablet 1 Sig: take 1 tablet by mouth every day ALLERGIES Allergen Reactions Codeine Hives, Rash Codeine Sulfate Unknown (home) [phone] (cell) Last Office Visit Date: 03/16/2024 Last Distance Health Visit: Visit date not found Future Appointment: 04/13/2024 The patients preferred pharmacy has been captured for this encounter? yes Request is for script(s) to be escript to pharmacy. Grace Linda LPN documented in this encounter [facility] 04-10-2024 Telephone encounter Note Spoke with the patient who advised she is not taking the Citalopram. States she is taking the Lasix PRN and also needs a refill on Januvia [facility] 04-10-2024 Miscellaneous Notes Spoke with the patient who advised she is not taking the Citalopram. States she is taking the Lasix PRN and also needs a refill on Januvia documented in this encounter [facility] 03-22-2024 Telephone encounter Note Order has been mailed Nanette Nelson [facility] 03-22-2024 Miscellaneous Notes Order has been mailed Nanette Nelson Please mail plaquard rx to patient. Thanks Please mail the order for the placard to the patient, thanks Pt's driver messenger, Fernanda Keith called to request a handicap placcard. When signed, put in mail to the Pt. Sylvia Monroy documented in this encounter [facility] 03-22-2024 Telephone encounter Note Please mail plaquard rx to patient. Thanks [facility] 03-21-2024 Telephone encounter Note PC to patient. Reviewed PARESH recommendations. She verbalized understanding. [facility] [employer] 03-21-2024 Miscellaneous Notes PC to patient. Reviewed [...] panel. Thank you documented in this encounter [facility] [employer] 03-21-2024 Telephone encounter Note PC to patient. Reviewed results. Her leg swelling is down. Her weight 3 days ago was 190 lbs, today 195 lbs. No more SOB than usual. Saw PCP 03/16 for cellulitis on her leg, currently on bactrim and has ointment for legs. Will repeat labs on Tuesday. She verbalized understanding. [facility] 03-21-2024 Telephone encounter Note Please call her [...] for the basic metabolic panel. Thank you [facility] 03-19-2024 Telephone encounter Note Please mail the order for the placard to the patient, thanks [facility] 03-16-2024 Instructions Marilin Rosales LPN - 03/16/2024 3:47 PM EDT Can take benadryl OTC for itching documented in this encounter [facility] 03-16-2024 Note HNO ID: [id number] Author: KOMAL COHN DO Service: ? Author Type: Physician Type: Progress Notes Filed: 03/20/2024 21:06 Note Text: [facility] [place] Komal Cohn DO [address] [place] [address] Date of Evaluation: 03/16/2024 Patient Name: Mikel Winston : 1945 Chief Complaint: Patient presents with: Edema: Started swelling and seeping Right leg May - Left leg started on Nursing Intake: There are no exam notes on file for this visit. Subjective Ms. Winston is a 78 year old female who presents with the following complaint(s): The history is provided by the patient. No industrial roofer was used. Edema This is a new [...] and ROS obtained (more content not included)... [facility] 03-16-2024 History of Present illness Narrative Images from the original note were not included. [facility] [place] DO Lalit [address] [place] [address] Date of Evaluation: 03/16/2024 Patient Name: Mikel [...] history is provided by the patient. No industrial roofer was used. Edema This is a new [...] Objective BP 120/52 Pulse 60 Ht 5' 4" (1.63m) Wt 196 lb (88.9kg) SpO2 99% [...] LPN March 16, 2024 4:24 PMProvider Attestation: Komal Anaya DO personally performed the [...] 2024 8:27 AM documented in this encounter [facility] 03-15-[address] [facility] 03-15-2024 Telephone encounter Note Pt's driver messenger, Fernanda Keith called to request a handicap placcard. When signed, put in mail to the Pt. Sylvia Monroy [facility] 03-14-2024 History of Present illness Narrative Images from the original note were not included. [facility] [address] [facility] [address] Dept: [phone] Dept Loc: [phone] DATE of SERVICE:03/14/24 TIME of SERVICE: 1:23 [...] Weight: 197 lb (89.4 kg) Height: 5' 4" (1.626 m) Body mass index is 33.81 [...] (H) 02/02/2024 @LASTCMP@ No results found for: "CHLPL", CHOL No results found for: "TRIG" No results found for: "HDL" No results found for: "LDLCALC" NT PRO BNP Date Value Ref Range Status 01/28/2024 1,480 (H) <20 - 300 pg/mL Final Cardiac Tests: ECG: Not needed Focused cardiac ultrasound: Ordering a formal transthoracic echocardiogram Maintenance Mechanic present for focused cardiac ultrasound: Not applicable [...] on these tests. documented in this encounter [facility] 03-14-2024 Note HNO ID: [id number] Author: LATNOYA ROSADO RN Service: ? Author Type: Registered [...] screening tool questions performed? No N/A Concerns: Toppiece Cutter plan for next outreach: Will follow-up if needed Signature: Latonya Rosado RN March 14, 2024 [facility] 03-14-2024 History of Present illness Narrative AG [...] screening tool questions performed? No N/A Concerns: Toppiece Cutter plan for next outreach: Will follow-up if needed Signature: Latonya Rosado RN March 14, 2024 documented in this encounter [facility] 03-14-2024 Note Patient Outreach (AG ACM) MIKEL WINSTON ([id number]) 1945 F Date Time Provider Department 03/14/24 LATONYA ROSADO [facility] During your visit today, we recorded the following information about you: Latonya Rosado RN 03/14/2024 10:42 AM Signed TRANSITIONAL CARE MANAGEMENT (TCM) FOLLOW-UP NOTE Provider Action/FYI: Patient identified by name and date of : YES Spoke to: patient Diagnosis: N/A Summary: Patient's leg that had cellulitis is better. She was scratching the non infected leg and now that leg has some redness. She is calling PCP to be seen again. Health leads screening tool questions performed? No N/A Concerns: Toppiece Cutter plan for next outreach: Will follow-up if [...] 3*12/01/2022 Systolic murmur [R01.1] 12/26/2022 Platelets decreased ([facility]) [D69.6] 12/26/2022 Depression [F32.A] 12/11/2023 Encounter Status:Closed by LATONYA ROSADO on 03/14/24 [facility] 02-29-2024 Note HNO ID: [id number] Author: LATONYA ROSADO RN Service: ? Author [...] screening tool questions performed? No N/A Concerns: Toppiece Cutter plan for next outreach: Will follow-up 2 weeks Signature: Latonya Rosado RN February 29, 2024 [facility] 02-29-2024 History of Present illness Narrative AG TRANSITIONAL CARE MANAGEMENT (TCM) FOLLOW-UP NOTE Provider Action/FYI: Patient identified by name and date of : YES Spoke to: patient Diagnosis: N/A Summary: Patient's cellulitis getting better. Patient feeling well. Patient completed TCM visit 02/27/24. No needs for PCP at this time. Health leads screening tool questions performed? No N/A Concerns: Toppiece Cutter plan for next outreach: Will follow-up 2 weeks Signature: Latonya Rosado RN February 29, [address] documented in this encounter [facility] 02-29-2024 Note Patient Outreach (AG ACM) MIKEL WINSTON ([id number]) 1945 F Date Time Provider Department 02/29/24 LATONYA ROSADO [facility] During your visit today, we recorded the [...] screening tool questions performed? No N/A Concerns: Toppiece Cutter plan for next outreach: Will follow-up 2 [...] Encounter Status:Closed by LATONYA ROSADO on 02/29/24 [facility] 02-27-2024 Note HNO ID: [id number] Author: KOMAL COHN, DO Service: ? Author Type: Physician Type: Progress Notes Filed: 03/05/2024 21:46 Note Text: Transitional Care Management TCM Eligibility Documentation Program: Transitional Care Management Status: Enrolled Effective Dates: 02/15/2024 - present Responsible Staff: Latonya Rosado graphics intern date: 02/13/2024 (Program start) Date of initial contact: 02/15/2024 Initial contact Target status: Successful; Contact made within 2 business days post-discharge Summary Discharged from: [facility] Admit Date: 01/28/24 Admitted for: cellulitis of [...] 140/60 Pulse 63 Temp 97.5 Ht 5' 4" (1.63m) Wt 199 lb (90.3kg) SpO2 98% [...] All medical record entries made by the delores were at my direction and in my presence. I have reviewed the chart and discharge instructions (if applicable) and agree that the record reflects my personal performance and is accurate and complete. Electronically Signed: Komal Cohn DO, February 27, 2024 3:54 PM [facility] 02-27-2024 History of Present illness Narrative Transitional Care Management TCM Eligibility Documentation Program: Transitional Care Management Status: Enrolled Effective Dates: 02/15/2024 - present Responsible Staff: Latonya Rosado RN Discharge date: 02/13/2024 (Program start) Date of initial contact: 02/15/2024 Initial contact Target status: Successful; Contact made within 2 business days post-discharge Summary Discharged from: [facility] Admit Date: 01/28/24 Admitted for: cellulitis of [...] 140/60 Pulse 63 Temp 97.5 Ht 5' 4" (1.63m) Wt 199 lb (90.3kg) SpO2 98% [...] 2024 3:54 PM documented in this encounter [facility] 02-15-2024 Note HNO ID: [id number] Author: LATONYA ROSADO RN Service: ? Author Type: Registered Nurse Type: Progress Notes Filed: 02/15/2024 11:45 Note Text: TRANSITIONAL CARE MANAGEMENT (TCM) COMMUNITY MONITORING PROGRAM - THAYER Provider Action/FYI: TCM appointment 02/27/24 Started on . Request for prescription sent to PCP. SUMMARY: Pt discharged from [facility] on 02/13/24. Admitted for: Cellulitis Patient seen Inpatient THUAN Visit? N/A. Patient seen ICARE Program? No. Contact made with patient: Yes Hi my name is Latonya Rosado RN and I am calling from the [facility] on behalf of your PCP, Komal [...] a medication review completed? Yes, Meds from [facility]. SOCIAL: We would like to make [...] like to speak with a social work team facilitator to help give you support for any [...] (or call on the way if possible). [facility] 02-15-2024 History of Present illness Narrative TRANSITIONAL CARE MANAGEMENT (TCM) COMMUNITY MONITORING PROGRAM - THAYER Provider Action/FYI: TCM appointment 02/27/24 Started on . Request for prescription sent to PCP. SUMMARY: Pt discharged from [facility] on 02/13/24. Admitted for: Cellulitis Patient seen Inpatient THUAN Visit? N/A. Patient seen ICARE Program? No. Contact made with patient: Yes Hi my name is Latonya Rosado RN and I am calling from the [facility] on behalf of your PCP, Komal Cohn, [...] a medication review completed? Yes, Meds from [facility]. SOCIAL: We would like to make [...] like to speak with a social work team facilitator to help give you support for any [...] way if possible). documented in this encounter [facility] 02-15-2024 Note HNO ID: [id number] Author: GOGO BARBOSA RN Service: ? Author Type: Registered Nurse Type: Progress Notes Filed: 02/15/2024 09:23 Note Text: Discharged from [facility] on 02/13/2024 to home. PCC notified. Gogo Barbosa RN February 15, 2024 [facility] 02-15-2024 History of Present illness Narrative Discharged from [facility] on 02/13/2024 to home. PCC notified. Gogo Barbosa RN February 15, [address] in this encounter [facility] 02-15-2024 Note Patient Outreach (AG ACM) MIKEL WINSTON ([id number]) 1945 F Date Time Provider Department 02/15/24 GOGO BARBOSA [facility] During your visit today, we recorded the following information about you: Gogo Barbosa RN 02/15/2024 9:23 AM Signed Discharged from [facility] on 02/13/2024 to home. PCC notified. Gogo Barbosa RN February 15, 2024 Allergies As of Date: 02/15/2024 Noted Allergy Reaction CODEINE 02/24/2016 4 - Hives 2 - Rash CODEINE SULFATE 06/13/2018 16 - Unknown Date Reviewed: 01/06/2024 Reviewed by: Arnel Govea LPN - Fully Assessed Reason for Visit: Transition Of Care [4074] Cmt: Discharged from [facility] to Home Prescriptions as of 02/15/2024 - [...] Encounter Status:Closed by GOGO BARBOSA on 02/15/24 [facility] 02-15-2024 Note Patient Outreach (AG ACM) MIKEL WINSTON ([id number]) 1945 F Date Time Provider Department 02/15/24 LATONYA ROSADO During your visit today, we recorded the following information about you: Latonya Rosado RN 02/15/2024 11:45 AM Signed TRANSITIONAL CARE MANAGEMENT (TCM) COMMUNITY MONITORING PROGRAM - THAYER Provider Action/FYI: TCM appointment 02/27/24 Started on . Request for prescription sent to PCP. SUMMARY: Pt discharged from [facility] on 02/13/24. Admitted for: Cellulitis Patient seen Inpatient THUAN Visit? N/A. Patient seen ICARE Program? No. Contact made with patient: Yes Hi my name is Latonya Rosado RN and I am calling from the [facility] on behalf of your PCP, [...] a medication review completed? Yes, Meds from [facility]. SOCIAL: We would like to make [...] like to speak with a social work team facilitator to help give you support for any [...] Fully Assessed Re (more content not included)... [facility] 02-08-2024 Note HNO ID: [id number] Author: SUE CLAUDIO, RN Service: ? Author Type: Registered Nurse Type: Progress Notes Filed: 02/08/2024 10:51 Note Text: TRANSITION CARE MANAGEMENT (TCM) DISCHARGE TO POST ACUTE FACILITY POST ACUTE TRANSFER SUMMARY: -Pt discharged from [facility] on 02/02/24. -Post Acute Facility Admitted to SNF. Discharging to Facility/ Agency Name: [facility] Address:[address] [place] [address] [facility] [address] -Admitted for: LLE Cellulitis Cystitis [facility] 02-08-2024 History of Present illness Narrative TRANSITION CARE MANAGEMENT (TCM) DISCHARGE TO POST ACUTE FACILITY POST ACUTE TRANSFER SUMMARY: -Pt discharged from [facility] on 02/02/24. -Post Acute Facility Admitted to SNF. Discharging to Facility/ Agency Name: [facility] Address:[address] [place] [address] [address] [place] [address] -Admitted for: LLE Cellulitis Cystitis documented in this encounter [facility] 02-08-2024 Note Patient Outreach (AG ACM) MIKEL WINSTON ([id number]) 1945 F Date Time Provider Department 02/08/24 SUE CLAUDIO [facility] During your visit today, we recorded the following information about you: Sue Claudio, RN 02/08/2024 10:51 AM Signed TRANSITION CARE MANAGEMENT (TCM) DISCHARGE TO POST ACUTE FACILITY POST ACUTE TRANSFER SUMMARY: -Pt discharged from [facility] on 02/02/24. -Post Acute Facility Admitted to SNF. Discharging to Facility/ Agency Name: [facility] Address:[place] [address] [place] [address] -Admitted for: LLE Cellulitis Cystitis Allergies As of Date: 02/08/2024 Noted Allergy Reaction CODEINE 02/24/2016 4 - Hives 2 - Rash CODEINE SULFATE 06/13/2018 16 - Unknown Date Reviewed: 01/06/2024 Reviewed by: Arnel Govea LPN - Fully Assessed Reason for Visit: Transition Of Care [7344] Cmt: Marya D/C to SNF 02/02/24 Prescriptions as of 02/08/2024 - atenolol [...] 12/01/2022 Systolic murmur [R01.1] 12/26/2022 Platelets decreased ([facility]) [D69.6] 12/26/2022 Depression [F32.A] 12/11/2023 Encounter Status:Closed by SUE CLAUDIO on 02/08/24 [facility] 02-02-2024 Nurse Note Report called to Mark at [facility]. [facility] 02-02-2024 Nurse Note Report called to Mark at [facility]. 01/29/24 2350, Pt having SOB expiratory wheezing,I gave her a PRN P.O LASIX,Dr Morillo notified,he put an order for breathing treatment an chest x-ray. documented in this encounter [facility] 02-02-2024 Miscellaneous Notes Patient Choice Patient Name: MIKEL WINSTON Date of : 1945 All Providers Sent Referral Name: [facility] Phone: [phone] Address: [address] [place] [address] S/W, Transport Transport set via [facility] at 230p to [facility]. Facility notified via [facility] of time. reconditioner provided report number. I did visit patient in her room to notify. Message Left for daughter Arnel as well. Messaged RETAIL LEADER to send dc packet to [facility]. . Discharge med list transmitted to [facility] via [facility] per TCC request. 7000 previously completed in HENS. Facility is aware Images from the original note were not included. Care Management Progress Note Anticipate discharge to [facility] today.. . Discharge Milestones and Delays Expected date/time: 02/01/2024 Anticipated medical readiness: 02/01/2024 Expected discharge disposition: Intermediate Facility Discharge Milestones Place discharge order Complete [...] patient that plan was to discharge to [facility] probably tomorrow. . 7000 was entered into [facility] for the SNF- [place] per TCC request. Facility is aware. Tasked RETAIL LEADER to complete 7000. Updated [facility] via [facility] that per attending, anticipate dc tomorrow. Per [facility] auth is good through [...] can talk with RN, hospitalist, and hospital paving contractor if needing more clarification on this. Epic chat sent to paving contractor. No other SW needs noted. Discharge plan is SNF. HCL to sign off. Please re-consult if needed. [facility] is able to accept. Did request that they submit for insurance auth. . Referral placed to [facility] per TCC request. Await review and response regarding ability to accept. [facility] notified. Spoke with patient. She is in agreement with snf referral. Did provide with SNF list. Referral placed to [facility] per her request .. [...] aerosols yesterday. Discharge plan is home with [facility] vs snf when medically stable. . Discharge Milestones and Delays Expected date/time: 02/01/2024 Expected discharge disposition: Home Health Services Discharge Milestones Place discharge order Complete med reconciliation Case mgmt discharge readiness Clinical Stability Diagnostic Workup Trimming Operator Recommendations Facility Choice Selection Test Results PT discharge readiness OT discharge readiness INDUSTRIAL MAINTENANCE REPAIRER HELPER discharge readiness Patient Education Complete Expected Discharge [...] Continuing to await therapy evals and recommendations. Bottle Gauger following case for Discharge Needs. Images from the original note were not included. Care Management Progress Note US of lower ext pending for this morning. Urine culture pending. Remains on iv antibiotics. Pt/ot ordered and pending. Discharge plan is pending therapy evals and recommendations, wound care and antibiotic needs. Tentative discharge plan is home with [facility] when medically stable.. Discharge Milestones and Delays Expected date/time: 01/31/2024 Expected discharge disposition: Home or Self Care Discharge Milestones Place discharge order Complete med reconciliation Case mgmt discharge readiness Clinical Stability Diagnostic Workup Trimming Operator Recommendations Facility Choice Selection Test Results PT discharge readiness OT discharge readiness INDUSTRIAL MAINTENANCE REPAIRER HELPER discharge readiness Patient Education Complete Expected Discharge [...] Limits Permission given to speak with patient quality control representative/caregiver as indicated: Confirmation of Payer with patient/family: Yes Payer Name: Anthem Medicare / [facility] [place]: No Confirmation of Primary Care Physician: Confirmed [...] Jalen Pham RN documented in this encounter [facility] 02-02-2024 Note Formatting of this n ote might be different from the original. Patient Choice Patient Name: MIKEL WINSTON Date of : 1945 All Providers Sent Referral Name: [facility] Phone: [phone] Address: [address] [place] [address] [facility] 02-02-2024 Note Formatting of this n ote might be different from the original. Patient Choice Patient Name: IMKEL WINSTON Date of : 1945 All Providers Sent Referral Name: [facility] Phone: [phone] Address: [address] [place] [id number] [facility] 02-02-2024 Note Formatting of this n ote might be different from the original. S/W, Transport Transport set via Roundtrip Cot at 230p to [facility]. [facility]. reconditioner provided report number. I did visit patient in her room to notify. Message Left for daughter Arnel as well. [facility] 02-02-2024 Note Formatting of this n ote might be different from the original. S/W, Transport Transport set via Roundtrip Cot at 230p to [facility]. Facility notified via [facility] of time. reconditioner provided report number. I did visit patient in her room to notify. Message Left for daughter Arnel as well. [facility] 02-02-2024 History of Present illness Narrative Images from the original note were not included. OCCUPATIONAL THERAPY [facility] Treatment Note Name/MRN: Mikel Winston ([id number]) Date of : 1945 Age: 78 y.o. Room[facility]Bed: [facility] B Visit #: 2 out of 8 visits Discharge Recommendation: Intermediate Facility Equipment Needed: No Prior Level of [...] were not included. PHYSICAL THERAPY [facility] Treatment Note Name/MRN: Mikel Winston ([id number]) Date of : 1945 Age: 78 y.o. Room/Bed: [facility] B Visit #: 2 out of 5 visits Discharge Recommendation: Intermediate Facility Equipment Needed: No (pt reports having [...] disease LABS: CBC: Recent Labs 01/30/24 0042 01/31/24 0524 02/01/24 0258 WBC 6.2 8.8 6.4 RBC 3.17* 2.94* 3.06* HGB 10.1* 9.5* 9.8* HCT 31.6* 28.7* 30.2* MCV 99.7* 97.6 98.7 RDW 13.9 13.7 13.5 PLT 81* 83* 90* BMP: Recent Labs 01/30/24 0042 01/31/2452302/01/24 0258 NA 138 136 135 K 3.7 3.2* 3.8 CL 111* 105 104 CO2 21* 23 22 BUN 30* 26* 34* CREATININE 1.58* 1.62* 1.69* GLUCOSE 148* 141* 107* CALCIUM 8.8 8.7 8.4 ANIONGAP 7 8 8 LIVER PROFILE: Recent Labs 01/30/24 0042 01/31/2452302/01/24 0258 AST 40 32 36 ALT 23 19 21 BILITOT 1.0 1.3 1.0 ALKPHOS 79 52 95 PROT 6.4 5.8* 6.0* PT/INR: No results for input(s): "PROTIME", "INR" in the last 72 hours. CARDIAC ENZYMES: No results for input(s): "TROPONINI" in the last 72 hours. Procalcitonin: No results found for: "PROCAL" COVID-19 PCR: No results for input(s): "COVID19" in the last 72 hours. Objective: Vitals: BP (!) 113/49 (BP Location: Right arm, Patient Position: Lying) Pulse 59 Temp 36.2 C (97.1 F) (Temporal) Resp 16 Ht 5' 6" (1.676 m) Wt 204 lb 12.9 oz [...] on ceftriaxone Right LE cellulitis- on zyvox Kdtr-bor-pcqfc gap metabolic acidosis BARRY on CKD stage [...] Forte Mobile Relation: Child Secondary Emergency Contact: Costa Winston Mobile Relation: Child Terence Gonzalez MD Division of Hospitalist Medicine [facility] Progress Note Subjective/ 78 y.o. year old female who we are seeing in consultation for BARRY. NAEON Resting in chair at bedside Feels fair, [...] and cellulitis rx per primary, d/w Dr Gonzalez [facility] -Ok for discharge planning from renal standpoint, outpatient BMP ordered and needs close follow up with nephrology in 1 week -We will follow closely with you Thank you for the consult and the opportunity to participate in the care of this patient. Please do not hesitate to contact us with any questions or concerns. Le Dobson APRN, STEAM TRAP WORKER [facility], [facility] [phone] Associated attestation - Liss Dominique MD - 02/01/2024 1:49 PM EDT I have reviewed the above assessment and plan with the BIT SANDER. I agree with above note. Cr appears to be plateauing. D/w Dr. Gonzalez. Low dose diuresis. Images from the original note were not included. OCCUPATIONAL THERAPY [facility] Treatment Note Name/MRN: Mikel Winston ([id number]) Date of : 1945 Age: 78 y.o. Room/Bed: L0-581/X1-856 B Visit #: 1 out of 8 visits Discharge Recommendation: Intermediate Facility Equipment Needed: No Prior Level of [...] 23 Minutes (2 ADLs) Margaret Ross OT [facility] Progress Note Subjective/ 78 y.o. [...] are reviewed Objective/ Vitals: 01/30/24 1759 01/30/24 18201/30/24202101/31/24 0726 BP: (!) 182/84 142/64 117/51 BP [...] from last 7 days Lab Units 01/31/24 0524 01/30/24 0042 01/29/24 0536 SODIUM mmol/L 136 138 140 POTASSIUM mmol/L 3.2* 3.7 3.9 CHLORIDE mmol/L 105 111* 109* CO2 mmol/L 23 21* 22 BUN mg/dL 26* 30* 30* CREATININE mg/dL 1.62* 1.58* 1.68* GLUCOSE mg/dL 141* 148* 128* CALCIUM mg/dL 8.7 8.8 9.6 Results from last 7 days Lab Units 01/31/24 0524 01/30/24 0042 01/29/24 0536 WBC AUTO 10*3/uL 8.8 [...] any questions or concerns. Le Dobson APRN, STEAM TRAP WORKER [facility] [phone] Images from the original note were not included. PHYSICAL THERAPY [facility] Treatment Note Name/MRN: Mikel Winston ([id number]) Date of : 1945 Age: 78 y.o. Room/Bed: [facility]/V3-344 B Visit #: 1 out of 5 visits Discharge Recommendation: Intermediate Facility Equipment Needed: No (pt reports having [...] Date: 01/28/2024 PCP: KOMAL COHN DO Room#: B4-867/B4-237 B BRIEF HOSPITAL COURSE: Admitted for UTI [...] Osteoporosis Thyroid disease LABS: CBC: Recent Labs 01/29/24 0536 064101/31/24523 WBC 9.0 6.2 8.8 RBC 3.31* 3.17* 2.94* HGB 10.5* 10.1* 9.5* HCT 32.5* 31.6* 28.7* MCV 98.2 99.7* 97.6 RDW 13.7 13.9 13.7 PLT 89* 81* 83* BMP: Recent Labs 01/29/24 0536 01/30/244101/31/24523 NA 140 138 136 K 3.9 3.7 3.2* CL 109* 111* 105 CO2 22 21* 23 BUN 30* 30* 26* CREATININE 1.68* 1.58* 1.62* GLUCOSE 128* 148* 141* CALCIUM 9.6 8.8 8.7 ANIONGAP 9 7 8 LIVER PROFILE: Recent Labs 01/29/24 0536 01/30/244101/31/24523 AST 36 40 32 ALT 22 23 19 BILITOT 1.2 1.0 1.3 ALKPHOS 73 79 52 PROT 6.5 6.4 5.8* PT/INR: No results for input(s): "PROTIME", "INR" in the last 72 hours. CARDIAC ENZYMES: Recent Labs 01/28/24 1709 01/28/247 TROPONINI 0.015 0.018 Procalcitonin: Lab Results Component Value Date PROCAL 0.12 (H) 01/29/2024 COVID-19 PCR: No results for input(s): "COVID19" in the last 72 hours. Objective: Vitals: BP 117/51 (BP Location: Right arm, Patient Position: Lying) Pulse 67 Temp 36.2 C (97.1 F) (Temporal) Resp 16 Ht 5' 6" (1.676 m) Wt 204 lb 12.9 oz [...] on ceftriaxone Right LE cellulitis- on zyvox Ocks-oam-zauxd gap metabolic acidosis BARRY on CKD stage [...] Forte Mobile Relation: Child Secondary Emergency Contact: Costa Winston Mobile Relation: Child Terence Gonzalez MD Division of Hospitalist Medicine [facility] Images from the original note were not included. PHYSICAL THERAPY [facility] Initial Evaluation Name/MRN: Mikel Winston ([id number]) Evaluation Date: 01/30/2024 Date of : 1945 Admission Date: 01/28/2024 4:25 PM Age: 78 y.o. Room/Bed: B4458/B4458 B Discharge Recommendation: Intermediate Facility Equipment Needed: No (pt reports having [...] artery disease involving coronary bypass graft of oneida heart without angina pectoris 09/30/2022 Nonrheumatic aortic [...] Responsibilities: Independent Receives Help From: None Active Liquor Commissioner: No Prior Level of Function ADL Assistance: [...] of Care supervision is transferred to a [facility] Therapy Services Physical Therapist. Goals and/or treatment plan was established in collaboration with patient/family/other representatives. Images from the original note were not included. OCCUPATIONAL THERAPY [facility] Initial Evaluation Name/MRN: Mikel Winston ([id number]) Evaluation Date: 01/30/2024 Date of : 1945 Admission Date: 01/28/2024 4:25 PM Age: 78 y.o. Room/Bed: [facility] B Discharge Recommendation: Intermediate Facility Equipment Needed: No Assessment IMPRESSION: Pt [...] List Diagnosis Date Noted Angina at rest ([facility]) 12/26/2017 Cellulitis of right lower extremity 01/28/2024 BARRY (acute kidney injury) ([facility]) 11/18/2022 UTI (urinary tract infection) 11/18/2022 Coronary artery disease involving coronary bypass graft of oneida heart without angina pectoris 09/30/2022 Nonrheumatic aortic valve stenosis 09/30/2022 Essential hypertension 09/30/2022 Dyslipidemia 09/30/2022 Generalized edema 01/27/2022 Diabetes ([facility]) 01/27/2022 Medical Precautions: No active isolations Proper [...] Responsibilities: Independent Receives Help From: None Active Liquor Commissioner: No Prior Level of Function ADL Assistance: [...] of Care supervision is transferred to a [facility] Therapy Services Occupational Therapist. Goals and/or treatment plan was established in collaboration with patient/family/other representatives. Hospitalist Progress Note 01/30/2024 [phone]: Please page me ([phone]) for patient care issues. [phone]: Please page [facility] night Hospitalist for any issues. Subjective: Admit Date: 01/28/2024 PCP: KOMAL COHN DO Room#: B4-302/B4-115 B Interval History: patient admitted for Acute [...] Thyroid disease LABS: CBC: Recent Labs 01/28/24 17001/29/24 0536 01/30/24 0042 WBC 10.8* 9.0 6.2 RBC 3.63* 3.31* 3.17* HGB 11.8 10.5* 10.1* HCT 35.1 32.5* 31.6* MCV 96.7 98.2 99.7* RDW 13.6 13.7 13.9 PLT 105* 89* 81* BMP: Recent Labs 01/28/24 17001/29/24 0536 01/30/24 004 NA 141 140 138 K 4.3 3.9 [...] 6.5 6.4 PT/INR: No results for input(s): "PROTIME", "INR" in the last 72 hours. CARDIAC ENZYMES: Recent Labs 01/28/24 17001/28/242236 TROPONINI 0.015 0.018 Procalcitonin: Lab Results Component Value Date PROCAL 0.12 (H) 01/29/2024 COVID-19 PCR: No results for input(s): "COVID19" in the last 72 hours. Objective: Vitals: BP 138/64 (BP Location: Right arm, Patient Position: Standing) Pulse 84 Temp 36.9 C (98.5 F) (Temporal) Resp 20 Ht 5' 6" (1.676 m) Wt 204 lb 12.9 oz [...] Right LE cellulitis Vancomycin, pharmacy to dose Mrua-qhy-ipzss gap metabolic acidosis BARRY on CKD stage [...] intubation. Confirmed code status as DNR-CCA, DNI. 6/24/24: patient mentation continues to improve. UC growing [...] Forte Mobile Relation: Child Secondary Emergency Contact: RavindraCosta Mobile Relation: Child Shemar Regalado DO Division of Hospitalist Medicine Inpatient Medical Services/[facility] PAGER: Epic chat [facility] Progress Note Subjective/ 78 y.o. [...] any questions or concerns. Le Dobson APRN, STEAM TRAP WORKER [facility], [facility] [phone] Associated attestation - Liss Dominique MD - 01/30/2024 4:35 PM EDT I have reviewed the above assessment and plan with the BIT SANDER. I agree with above note. BARRY improving. Renal USG negative Nutrition rescreen complete. Pt assigned a level one for nutrition care. Hospitalist Progress Note 01/29/2024 [phone]: Please page me ([phone]) for patient care issues. [phone]: Please page [facility] Hospitalist for any issues. Subjective: Admit Date: 01/28/2024 PCP: KOMAL COHN DO Room#: D3-551/K5-662 B Interval History: patient admitted for Acute [...] PROT 6.5 PT/INR: No results for input(s): "PROTIME", "INR" in the last 72 hours. CARDIAC ENZYMES: Recent Labs 01/28/24 1709 01/28/247 TROPONINI 0.015 0.018 Procalcitonin: No results found for: "PROCAL" COVID-19 PCR: No results for input(s): "COVID19" in the last 72 hours. Objective: Vitals: BP 138/60 (BP Location: Right arm, Patient Position: Lying) Pulse 78 Temp 36.9 C (98.4 F) (Temporal) Resp 17 Ht 5' 6" (1.676 m) Wt 204 lb 12.9 oz [...] Right LE cellulitis Vancomycin, pharmacy to dose Rgib-jck-lvwhl gap metabolic acidosis BARRY on CKD stage [...] Forte Mobile Relation: Child Secondary Emergency Contact: Costa Winston Mobile Relation: Child Shemar Regalado DO [facility] Services/[facility] PAGER: Mosa Records chat Images from the original note were not included. PHYSICAL THERAPY [facility] Name/MRN: Mikel Winston ([id number]) Date: 01/29/2024 Chart reviewed. Pt with pending Duplex. Will await result and attempt as appropiate Siddharth Irving PT Images from the original note were not included. Speech-Language Pathology SPEECH LANGUAGE PATHOLOGY [facility] Bedside Swallow Evaluation Patient Name: Mikel Winston Evaluation Date: 01/29/2024 Date of : 1945 Admission Date: 01/28/2024 4:25 PM Age: 78 y.o. Room/Bed: Y8-566/A4-962 B IMPRESSION: No s/s oropharyngeal dysphagia. No overt clinical s/s pulmonary compromise with PO. Risk factors for aspiration include some missing teeth. RECOMMENDATION: Recommend Regular solids and Thin liquids and meds as tolerated and the following precautions: - Upright positioning for all PO intake - Slow rate of intake - Small bites/sips No skilled acute INDUSTRIAL MAINTENANCE REPAIRER HELPER indicated at this time. Please reconsult should changes occur. Subjective Patient alert and cooperative. Seen upright in bed. Answers all basic questions with clear vocal quality. Follows all basic commands. No visitors at bedside. Spoke with JANES Lagunas who cleared pt to be evaluated. Dysphagia History: No history of INDUSTRIAL MAINTENANCE REPAIRER HELPER services in EMR with retrospective chart review [...] List Diagnosis Date Noted Angina at rest ([facility]) 12/26/2017 Cellulitis of right lower extremity 01/28/2024 BARRY (acute kidney injury) ([facility]) 11/18/2022 UTI (urinary tract infection) 11/18/2022 Coronary artery disease involving coronary bypass graft of oneida heart without angina pectoris 09/30/2022 Nonrheumatic aortic valve stenosis 09/30/2022 Essential hypertension 09/30/2022 Dyslipidemia 09/30/2022 Generalized edema 01/27/2022 Diabetes ([facility]) 01/27/2022 History of Present Illness: Mikel is [...] Stated Goal: To go home. Therapy Time INDUSTRIAL MAINTENANCE REPAIRER HELPER Individual Minutes Time In: 823 Time Out: 834 Minutes: 11 GUILLERMO Mei Images from the original note were not included. OCCUPATIONAL THERAPY [facility]'s Name/MRN: Mikel Winston ([id number]) Date: 01/29/2024 Therapy eval and treat orders received. Chart review complete. Per chart review, pt with pending BLE duplex. Will await results and potential anticoagulation needs prior to initiation of therapy. Quinn Alcala OT Pharmacy to Dose Vancomycin - Progress Note Recent Labs 01/28/24 1709 01/29/24 0536 BUN 33* 30* CREATININE 1.70* 1.68* Lab Results Component Value Date VANCORANDOM 16.4 01/29/2024 VANCOTROUGH 27.0 (H) 12/19/2021 Doses, serum creatinine, and vancomycin levels interfaced automatically to [employer]. and data has been analyzed and interpreted. [...] via Secure Chat documented in this encounter [facility] 02-02-2024 Note Formatting of this n ote might be different from the original. Messaged RETAIL LEADER to send dc packet to [facility]. . [facility] 02-02-2024 Note Formatting of this n ote might be different from the original. Messaged RETAIL LEADER to send dc packet to [facility]. . T [facility] 02-02-2024 Note Formatting of this n ote might be different from the original. Discharge med list transmitted to [facility] via CareStam[facility] per TCC request. 7000 previously completed [facility] Facility is aware T [facility] 02-02-2024 Note Formatting of this n ote might be different from the original. Discharge med list transmitted to [facility] via CareStampt per TCC request. 7000 previously completed [facility]. Facility is aware [facility] 02-02-2024 Hospital course Narrative Discharge Summary Mikel [...] zyvox and ceftriaxone to complete the course. Hfrv-pap-dvhip gap metabolic acidosis- improved Acute renal insuffiencey [...] (96.8 F) (Temporal) Resp 16 Ht 5' 6" (1.676 m) Wt 204 lb 12.9 oz [...] Your Medications These medications were sent to [facility] [address] [facility], [facility] [address] Hours: Tuesday to Tuesday 10 am to 6 pm amoxicillin-clavulanate 875-125 MG tablet linezolid 600 MG tablet SITagliptin 25 MG tablet DIET: Adult diet Regular; 3 carb choices (45 gm/meal) ACTIVITY: No restriction. COMPLEXITY OF FOLLOW UP: [x] Moderate Complexity: follow up within 7-14 calendar days (44139) [] Severe Complexity: follow up within 7 calendar days (38361) FOLLOW UP TESTING, PENDING RESULTS OR REFERRALS AT TRANSITIONAL CARE VISIT: [x] Yes [] No PENDING STUDIES: DISPOSITION: Skilled Facility FACILITY/HOME CARE AGENCY NAME: Follow up with Liss Dominique MD [address] [facility] [address] [place] [phone] Follow up in 1 week(s) on INSTRUCTIONS [...] 02/02/2024, 10:40 AM documented in this encounter [facility] 02-02-2024 Note Formatting of this n ote is different from the original. Images from the original note were not included. Care Management Progress Note Anticipate discharge to [facility] today.. . Discharge Milestones and Delays Expected date/time: 02/01/2024 Anticipated medical readiness: 02/01/2024 Expected discharge disposition: Intermediate Facility Discharge Milestones Place discharge order Complete [...] RN 01/30/2024 9:00 AM 01/31/2024 Alia Russo 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 01/28/2024 7:46 PM 01/31/2024 Alia Russo 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 01/28/2024 7:06 PM Length of Stay (Days): 5 GMLOS: 3.9 [facility] 02-02-2024 Note Formatting of this n ote is different from the original. Images from the original note were not included. Care Management Progress Note Anticipate discharge to [facility] today.. . Discharge Milestones and Delays Expected date/time: 02/01/2024 Anticipated medical readiness: 02/01/2024 Expected discharge disposition: Intermediate Facility Discharge Milestones Place discharge order Complete [...] RN 01/30/2024 9:00 AM 01/31/2024 Alia Russo 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 01/28/2024 7:46 PM 01/31/2024 Alia Russo APRN - JATIN 01/28/2024 7:06 PM Length of Stay (Days): 5 GMLOS: 3.9 T [facility] 02-01-2024 Note Formatting of this n ote might be different from the original. Did update patient that plan was to discharge to [facility] probably tomorrow. . T [facility] 02-01-2024 Note Formatting of this n ote might be different from the original. Did update patient that plan was to discharge to [facility] probably tomorrow. . T [facility] 02-01-2024 Note Formatting of this n ote might be different from the original. 7000 was [facility] into [facility]. Facility is aware. [facility] 02-01-2024 Note Formatting of this n ote might be different from the original. 7000 was entered into [employer] for the [facility] per TCC request. Facility is aware. [facility] 02-01-2024 Note Formatting of this n ote might be different from the original. Tasked RETAIL LEADER to complete 7000. Updated [facility] via careport that per attending, anticipate dc tomorrow. Per [facility] auth is good through 02/05. . [facility] 02-01-2024 Note Formatting of this n ote might be different from the original. Tasked RETAIL LEADER to complete 7000. Updated [facility] via careport that per attending, anticipate dc tomorrow. Per [facility] auth is good through 02/05. . [facility] 02-01-2024 Hospital Discharge instructions Keyana Trimble LPN - 02/01/2024 8:45 AM EDT Images from the original note were not included. Continuity of Care Form Patient Name: Mikel Winston : 1945 Admit date: 01/28/2024 Discharge date: Code Status Order: DNR-CCA Advance Directives: N Admitting Physician: Sukhi Maurer MD PCP: KOMAL COHN DO Discharging Nurse: Gregg Trimble LPN Discharging Hospital Unit/Room#: B4458/B4458 B Discharging Unit Emergency Contact: Extended Emergency Contact Information Primary Emergency Contact: Arnel Forte Mobile Relation: Child Secondary Emergency Contact: Costa Winston Mobile Relation: Child Past Surgical History: [...] artery disease involving coronary bypass graft of oneida heart without angina pectoris Nonrheumatic aortic valve stenosis Essential hypertension Dyslipidemia BARRY (acute kidney injury) (HCC) UTI (urinary tract infection) Isolation/Infection: No active isolations No active infections Nurse Assessment: Last Vital Signs: BP (!) 113/49 (BP Location: Right arm, Patient Position: Lying) Pulse 59 Temp 36.2 C (97.1 F) (Temporal) Resp 16 Ht 1.676 m (5' 6") Wt 92.9 kg (204 lb 12.9 oz) [...] Minimal assistance Toileting Minimal assistance Feeding Independent End Frazer Minimal assistance Med Delivery yes Wound Care [...] Status Date: Discharging to Facility/ Agency Name: [facility] Address:[address] [place] [address] [address] [place], [place] [address] Dialysis Facility (if applicable) Name: Address: Dialysis Schedule: Phone: Fax: Vp Home Health/Padder signature: ICIAN SECTION Name: Mikel Winston Prognosis: [...] to a nursing facility directly from an [facility] or a unit of a [facility] that is not operated by or licensed by [facility] under section 5119.14 or 5160-3-15.1 5 The individual requires the level of services provided by a nursing facility for the condition for which he or she was treated in the hospital and, Physician Certification: I certify the above information and transfer of Mikel Winston is necessary for the continuing treatment of the diagnosis listed and that she requires intermediate facility for less than 30 days. Update Admission H&P: No change in H&P PHYSICIAN SIGNATURE: documented in this encounter [facility] 01-31-2024 Note Formatting of this n ote [...] can talk with RN, hospitalist, and hospital paving contractor if needing more clarification on this. Epic chat sent to paving contractor. No other SW needs noted. [facility] 01-31-2024 Note Formatting of this n ote [...] can talk with RN, hospitalist, and hospital paving contractor if needing more clarification on this. Epic chat sent to paving contractor. No other SW needs noted. [facility] 01-31-2024 Note Formatting of this n ote might be different from the original. Discharge plan is SNF. HCL to sign off. Please re-consult if needed. [facility] 01-31-2024 Note Formatting of this n ote might be different from the original. Discharge plan is SNF. HCL to sign off. Please re-consult if needed. [facility] 01-31-2024 Note Formatting of this n ote might be different from the original. [facility] is able to accept. Did request that they submit for insurance auth. . [facility] 01-31-2024 Note Formatting of this n ote might be different from the original. [facility] is able to accept. Did request that they submit for insurance auth. . [facility] 01-31-2024 Note Formatting of this n ote might be different from the original. Referral placed to [facility] via [facility] per TCC request. Await review and response regarding ability to accept. TCC notified. [facility] 01-31-2024 Note Formatting of this n ote might be different from the original. Referral placed to [facility] via [facility] per TCC request. Await review and response regarding ability to accept. TCC notified. [facility] 01-31-2024 Note Formatting of this n ote might be different from the original. Spoke with patient. She is in agreement with snf referral. Did provide with SNF list. Referral placed to [facility] per her request .. [facility] 01-31-2024 Note Formatting of this n ote might be different from the original. Spoke with patient. She is in agreement with snf referral. Did provide with SNF list. Referral placed to [facility] per her request .. [facility] 01-31-2024 Consult note Associated Order (s): PHARMACY TO DOSE VANCO Vancomycin therapy has been discontinued by Dr. Gonzalez on 01/30. Thank you for the consult. Pharmacy signing off for vancomycin dosing. Ginny Gramajo RPh, Date: 01/31/24 Time: 10:32 AM [facility] 01-31-2024 Consult note Associated Order (s): PHARMACY TO DOSE VANCO Vancomycin therapy has been discontinued by Dr. Gonzalez on 01/30. Thank you for the consult. Pharmacy signing off for vancomycin dosing. Ginny Gramajo RPh, Date: 01/31/24 Time: 10:32 AM Associated Order(s): IP CONSULT TO NEPHROLOGY [facility] Consult Note Reason for Consult: BARRY/CKD3a Requesting Physician: Sukhi Maurer MD Chief Complaint: Chief Complaint Patient presents with Urinary Problem Family called pt today and she seemed "a little off" like she does when she has a [...] 10 min Stress: Stress Concern Present (01/28/2024) [employer]ational [employer] - Occupational Stress Questionnaire Feeling of Stress : To some extent Social Connections: Moderately Integrated (01/28/2024) Social Connection and Isolation Panel [NHANES] Frequency of Communication with Friends and Family: More than three times a week Frequency of Social Gatherings with Friends and Family: More than three times a week Attends Protestant Services: More than 4 times per year [...] exam: Constitutional: Vitals: 01/28/24 1857 01/28/24 1949 01/28/24202701/28/240 BP: (!) 155/81 147/64 Pulse: 87 101 Resp: 18 21 Temp: 37.5 C (99.5 F) TempSrc: Temporal SpO2: 99% 99% Weight: 92.9 kg (204 lb 12.9 oz) Height: 1.676 m (5' 6") CURRENT TEMPERATURE: Temp: 37.5 C (99.5 F) [...] CREATININE 1.70* 1.68* BNP: Recent Labs 01/28/24 170 BNP 1,480* ABGs: No results found for: "PH", "PCO2", "PO2", "HCO3", "O2SAT" Nephro Labs: Recent Labs 01/28/24 1710 COLORU [...] any questions or concerns. Le Dobson APRN, STEAM TRAP WORKER [facility], [facility] [phone] office Images from the original note were not included. Pharmacy Managed Vancomycin Dosing Service Consult Note Consult Date: 01/28/24 Patient Name: Mikel Winston Allergies: Codeine Age: 78 y.o. Sex: female Estimated body mass index is 33.06 kg/m as calculated from the following: Height as of this encounter: 1.676 m (5' 6"). Weight as of this encounter: 92.9 kg [...] creatinine, and vancomycin levels interfaced automatically to Revolve. and data has been analyzed and interpreted. [...] via Secure Chat documented in this encounter [facility] 01-31-2024 Note Formatting of this n ote [...] aerosols yesterday. Discharge plan is home with [facility] vs snf when medically stable. . 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 Discharge plan is home with [facility] vs snf when medically stable. . Discharge Milestones and Delays Expected date/time: 02/01/2024 Expected discharge disposition: Home Health Services Discharge Milestones Place discharge order Complete med reconciliation Case mgmt discharge readiness Clinical Stability Diagnostic Workup Trimming Operator Recommendations Facility Choice Selection Test Results PT discharge readiness OT discharge readiness INDUSTRIAL MAINTENANCE REPAIRER HELPER discharge readiness Patient Education Complete Expected Discharge History Expected Date/Time Set By Reviewed At 02/01/2024 Jade Russell RN 01/30/2024 9:00 AM tcc est 01/31/2024 GARCIA Hallman CNP 01/28/2024 7:46 PM 01/31/2024 GARCIA Hallman CNP 01/28/2024 7:06 PM Length of Stay (Days): 3 GMLOS: 3.9 [facility] 01-31-2024 Plan of care note The patient [...] to continue with current care. [facility] 01-30-2024 Note Formatting of this n ote might be different from the original. Continuing to await therapy evals and recommendations. T [facility] 01-30-2024 Note Formatting of this n ote might be different from the original. Continuing to await therapy evals and recommendations. [facility] 01-30-2024 Note Formatting of this n ote might be different from the original. Bottle Gauger following case for Discharge Needs. [facility] 01-30-2024 Note Formatting of this n ote might be different from the original. Bottle Gauger following case for Discharge Needs. [facility] 01-30-2024 Note Formatting of this n ote is different from the original. Images from the original note were not included. Care Management Progress Note US of lower ext pending for this morning. Urine culture pending. Remains on iv antibiotics. Pt/ot ordered and pending. Discharge plan is pending therapy evals and recommendations, wound care and antibiotic needs. Tentative discharge plan is home with [facility] when medically stable.. 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 Images from the original note were not included. Care Management Progress Note US of lower ext pending for this morning. Urine culture pending. Remains on iv antibiotics. Pt/ot ordered and pending. Discharge plan is pending therapy evals and recommendations, wound care and antibiotic needs. Tentative discharge plan is home with [facility] when medically stable.. Discharge Milestones and Delays Expected date/time: 01/31/2024 Expected discharge disposition: Home or Self Care Discharge Milestones Place discharge order Complete med reconciliation Case mgmt discharge readiness Clinical Stability Diagnostic Workup Trimming Operator Recommendations Facility Choice Selection Test Results PT discharge readiness OT discharge readiness INDUSTRIAL MAINTENANCE REPAIRER HELPER discharge readiness Patient Education Complete Expected Discharge History Expected Date/Time Set By Reviewed At 01/31/2024 GARCIA Hallman CNP 01/28/2024 7:46 PM 01/31/2024 GARCIA Hallman CNP 01/28/2024 7:06 PM Length of Stay (Days): 2 GMLOS: No GMLOS Documented [facility] [address] [employer] 01-30-2024 Plan of care note The patient is Moderately Unstable - Medium risk of patient condition declining or worsening The patient's goals for the shift include rest The clinical goals for the shift include safety Over the shift, the patient did demonstrate knowledge on the diagnosis and the treatment.She remains free from falls. [facility] 01-30-2024 Plan of care note The patient is Moderately Unstable - Medium risk of patient condition declining or worsening The patient's goals for the shift include rest The clinical goals for the shift include safety Over the shift, the patient did demonstrated knowledge on care and prognosis. [facility] 01-30-2024 Nurse Note 01/29/24 2350, Pt having SOB expiratory wheezing,I gave her a PRN P.O LASIX,Dr Morillo notified,he put an order for breathing treatment an chest x-ray. [facility] 01-29-2024 Note Formatting of this n ote might be different from the original. Care Managment Initial Assessment Date: 01/29/2024 Patient Name: Mikel Winston : 1945 Patient Information Source of Information: Patient Cognition/Language: WFL - Within Functional Limits Permission given to speak with patient quality control representative/caregiver as indicated: Confirmation of Payer with patient/family: Yes Payer Name: An[employer] Medicare / [facility] [place]: No Confirmation of Primary Care Physician: Confirmed [...] to follow. Jalen Pham RN [facility] 01-29-2024 Note Formatting of this n ote might be different from the original. Care Managment Initial Assessment Date: 01/29/2024 Patient Name: Mikel Winston : 1945 Patient Information Source of Information: Patient Cognition/Language: WFL - Within Functional Limits Permission given to speak with patient quality control representative/caregiver as indicated: Confirmation of Payer with patient/family: Yes Payer Name: [employer] Medicare / [facility] : No Confirmation of Primary Care Physician: [...] Daily Living Prescription Coverage: Yes Pharmacy Used: [facility] Medication Management: Independent Transportation/Shopping: Assistance Provider [...] to follow. Jalen Pham RN [facility] 01-29-2024 Consult note Associated Order (s): IP CONSULT TO NEPHROLOGY [facility] Consult Note Reason for Consult: BARRY/CKD3a Requesting Physician: Sukhi Maurer MD Chief Complaint: Chief Complaint Patient presents with Urinary Problem Family called pt today and she seemed "a little off" like she does when she has a [...] 10 min Stress: Stress Concern Present (01/28/2024) [employer] - Occupational Stress Questionnaire Feeling of Stress : To some extent Social Connections: Moderately Integrated (01/28/2024) Social Connection and Isolation Panel [NHANES] Frequency of Communication with Friends and Family: More than three times a week Frequency of Social Gatherings with Friends and Family: More than three times a week Attends Protestant Services: More than 4 times per year [...] lb 12.9 oz) Height: 1.676 m (5' 6") CURRENT TEMPERATURE: Temp: 37.5 C (99.5 F) [...] CREATININE 1.70* 1.68* BNP: Recent Labs 01/28/24 170 BNP 1,480* ABGs: No results found for: "PH", "PCO2", "PO2", "HCO3", "O2SAT" Nephro Labs: Recent Labs 01/28/24 1710 COLORU [...] any questions or concerns. Le Dobson APRN, STEAM TRAP WORKER [facility] [employer], [facility] [phone] office [facility] 01-28-2024 Consult note Formatting of th is note is different from the original. Images from the original note were not included. Pharmacy Managed Vancomycin Dosing Service Consult Note Consult Date: 01/28/24 Patient Name: Mikel Winston Allergies: Codeine Age: 78 y.o. Sex: female Estimated body mass index is 33.06 kg/m as calculated from the following: Height as of this encounter: 1.676 m (5' 6"). Weight as of this encounter: 92.9 kg [...] creatinine, and vancomycin levels interfaced automatically to [employer]olve. and data has been analyzed and interpreted. [...] Limon RPh Available via Secure Chat T [facility] 01-28-2024 History and physical note Images from [...] Unmet Transportation Needs (03/08/2022) Received from [facility] [email or web address] [facility] - Transportation Lack of Transportation [...] ANIONGAP 13 LIVER PROFILE:No results for input(s): "AST", "ALT", "BILITOT", "ALKPHOS", "PROT" in the last 72 hours. No lab exists for component: LABALBU PT/INR: No results for input(s): "PROTIME", "INR" in the last 72 hours. CARDIAC ENZYMES: Recent Labs 01/28/24 1709 TROPONINI 0.015 Procalcitonin: No results found for: "PROCAL" Urine Culture: Results for orders placed or [...] ug/ml COVID-19 PCR: No results for input(s): "COVID19" in the last 72 hours. I reviewed: [...] [employer] Mobile Relation: Child Secondary Emergency Contact: RavindraCosta Mobile Relation: Child ADVANCED [employer]ARE [employer]ANNING Mikel Winston : 1945 Primary Care Physician: KOMAL COHN DO The patient and/or family/surrogate voluntarily agreed to participate in ACP services. Patient s cognitive capacity: Code Status: [_] [FULL CODE - Continue all advanced life support: CPR,intubation,invasive procedures] [*_] [DNR-CCA - DO NOT do CPR, intubation] [_] [DNR-BANBURY OPERATOR - Comfort care only] [_] DNR form [...] Sukhi Maurer MD Division of Hospitalist Medicine [facility] [employer] Phone: 01-28-2024 History and physical note Images from [...] Unmet Transportation Needs (03/08/2022) Received from [facility] [employer] [facility] - Transportation Lack of Transportation [...] ANIONGAP 13 LIVER PROFILE:No results for input(s): "AST", "ALT", "BILITOT", "ALKPHOS", "PROT" in the last 72 hours. No lab exists for component: LABALBU PT/INR: No results for input(s): "PROTIME", "INR" in the last 72 hours. CARDIAC ENZYMES: Recent Labs 01/28/24 1709 TROPONINI 0.015 Procalcitonin: No results found for: "PROCAL" Urine Culture: Results for orders placed or [...] ug/ml COVID-19 PCR: No results for input(s): "COVID19" in the last 72 hours. I reviewed: [...] [employer] Relation: Child Secondary Emergency Contact: RavindraCosta Mobile Relation: Child ADVANCED CARE PLANNING Mikel Winston : 1945 Primary Care Physician: KOMAL COHN DO The patient and/or family/surrogate voluntarily agreed to participate in ACP services. Patient s cognitive capacity: Code Status: [_] [FULL CODE - Continue all advanced life support: CPR,intubation,invasive procedures] [*_] [DNR-CCA - DO NOT do CPR, intubation] [_] [DNR-BANBURY OPERATOR - Comfort care only] [_] DNR form [...] Sukhi Maurer MD Division of Hospitalist Medicine [facility] documented in this encounter [facility] 01-28-2024 Emergency department Note Guided family back MELIDA Owusu 01/28/24 1648 [facility] 01-28-2024 Emergency department Note Guided family back MELIDA Owusu 01/28/24 1648 Introduced myself as pt liaison explained role and provided support to son Guy and his Lizzette in [facility], pt arrived via EMS. MELIDA Owusu 01/28/24 1631 EMERGENCY DEPARTMENT ENCOUNTER Pt Name: Mikel Winstno Birthdate 1945 Date of evaluation: 01/28/2024 ED Provider: Mindi Angulo MD CHIEF COMPLAINT Chief Complaint Patient presents with Urinary Problem Family called pt today and she seemed "a little off" like she does when she has a [...] Needs: Unmet Transportation Needs (03/08/2022) Received from [facility] - Transportation Lack of Transportation (Medical): [...] Medicine Provider Mindi Angulo MD Resident 01/28/24 7191 Emergency Department Encounter [facility] ED Patient: Mikel Winston : [...] for clarification.) Surjit Sanchez MD Acute Care [facility] Surjit Sanchez MD 01/29/24 0122 documented in this encounter [facility] 01-28-2024 Emergency department Note Introduced myself as pt liaison explained role and provided support to son Guy and his Lizzette in [facility], pt arrived via EMS. MELIDA Owusu 01/28/24 1631 [facility] 01-28-2024 Physician Emergency department Note EMERGENCY DEPARTMENT ENCOUNTER Pt Name: Mikel Winston Birthdate 1945 Date of evaluation: 01/28/2024 ED Provider: Mindi Angulo MD CHIEF COMPLAINT Chief Complaint Patient presents with Urinary Problem Family called pt today and she seemed "a little off" like she does when she has a [...] Unmet Transportation Needs (03/08/2022) Received from [facility] [email or web address] [facility] - Transportation Lack of Transportation (Medical): Yes [...] Plus (1,000 mg IntraVENous New Bag 01/28/24 8595) PROCEDURES: Unless otherwise noted below, none Procedures [...] Provider Mindi Angulo MD Resident 01/28/24 1836 [facility] [employer] 01-28-2024 Physician Emergency department Note Emergency Department Encounter [facility] ED Patient: Mikel Winston : [...] [employer] Surjit Sanchez MD 01/29/24 0122 [facility] Work Phone: 01-09-2024 Evaluation note Diagnosis Type 2 diabetes mellitus with stage 3 chronic kidney disease, without long-term current use of insulin, unspecified whether stage 3a or 3b CKD ([facility] Primary Screening for diabetic retinopathy Screening for [...] Stage IV (severe) documented in this encounter [facility]05-31-2024 Telephone encounter Note* Telephone Encounter - Sylvia Monroy - 01/06/2024 2:50 PM EDT Consult to nephrology CKD chronic kidney disease stage 4 GFR 15-29 ml/min Confirm [id number] Sylvia Monroy [facility]05-31-2024 Miscellaneous Notes* Telephone Encounter - Sylvia Monroy - 01/06/2024 2:50 PM EDT Consult to nephrology CKD chronic kidney disease stage 4 GFR 15-29 ml/min Confirm [id number] Sylvia Monroy [facility] Telephone encounter Note * Telephone Encounter - Sylvia Monroy - 01/06/2024 2:48 PM EDT Consult to ophthalmology Screening for diabetic retinopathy Confirm [id number] Sylvia Monroy [facility]05-31-2024 Miscellaneous Notes* Telephone Encounter - Sylvia Monroy - 01/06/2024 2:48 PM EDT Consult to ophthalmology Screening for diabetic retinopathy Confirm [id number] Sylvia Monroy [facility] NoteHNO ID: [id number] Author: ?, ?, ? Service: ? Author Type: ? Type: Progress Notes Filed: 05/29/2024 16:07 Note Text: [facility] Medicine Brandi Hogueland Lalit DO [address] [place] [address] Date of Evaluation: 01/06/2024 Patient Name: Mikel [...] history is provided by the patient. No industrial roofer was used. Diabetes She presents for her [...] Reported on 03/07/2023) M (more content not included)...[facility]05-31-2024 History of Present illness Narrative* Melanie Ellsworth Philly - 01/06/2024 1:23 PM EDT Images from the original note were not included. [facility] Medicine [facility] [address] Lalit [address] [place] [address] Date of Evaluation: 01/06/2024 Patient Name: Mikel [...] history is provided by the patient. No industrial roofer was used. Diabetes She presents for her [...] 134/70 Pulse 61 Temp 98 Ht 5' 4" (1.63m) Wt 206 lb (93.4kg) SpO2 97% [...] kidney disease) stage 4, GFR 15-29 ml/min ([facility]) - ICD9: 585.4, ICD10: N18.4 - eGFR: [...] Ellsworth January 06, 2024 1:36 PMProvider Attestation: IKomal DO personally performed the [...] DO, January 0541:41 PM documented in [facility] Telephone encounter Note * Telephone Encounter [...] order for the US is here for fruit or nut picker and based on her chart, it appears shegoes to [place] for many of her tests. No order for referral - sent message back to For the referral. [facility]05-14-2024 Telephone encounter Note* Telephone Encounter - Grace Linda LPN - 12/20/2023 4:13 PM EDT Need to have order for Neph referral [facility]05-14-2024 Miscellaneous Notes* Telephone Encounter - Grace Linda LPN - 12/20/2023 4:13 PM EDT Spoke to Clinton. Related all the information from Dr. Cohn. Clinton states that his sister generally handles all this for Mikel, but she has been working more recently, so Clinton may have to handle this. I let him know that the order for the US is here for fruit or nut picker and based on her chart, it appears shegoes to [place] for many of her tests. No order [...] to contact later. * Telephone Encounter - rAnel Govea LPN - 12/16/2023 4:07 PM EDT Tried to call the patients son, there was no answer. * Telephone Encounter - Arnel Govea LPN - 12/16/2023 4:02 PM EDT ----- Message from Komal Cohn DO sent at 12/16/2023 3:31 PM EDT ----- End stage kidney disease neph conult us ordered stop maria isabel I spoke qwith pt but she lack insight. She will hav he dgtr call me Tuesday I called son vincent but no answer documented in [facility]St[facility] Telephone encounter Note * Telephone Encounter - Grace Linda LPN - 12/20/2023 9:14 AM EDT Attempted to LM for pt to rtn call. VM is full, unable at this time. Will attempt to contact later. [facility]05-10-2024 Telephone encounter Note* Telephone Encounter - Arnel Govea LPN - 12/16/2023 4:07 PM EDT Tried to call the patients son, there was no answer. [facility]05-10-2024 Telephone encounter Note* Telephone Encounter - Arnel Govea LPN - 12/16/2023 4:02 PM EDT ----- Message from Komal Cohn DO sent at 12/16/2023 3:31 PM EDT ----- End stage kidney disease neph conult us ordered stop laseli I spoke qwith pt but she lack insight. She will hav he dgtr call me Tuesday I called son vincent but no answer [facility]05-01-2024 NoteHNO ID: [id number] Author: KOMAL COHN DO Service: ? Author Type: Physician Type: Progress Notes Filed: 12/11/2023 22:53 Note Text: [facility] Medicine [place] Komal Cohn DO [address] [place] [address] Date of Evaluation: 12/07/2023 Patient Name: Mikel Winston : 1945 Chief Complaint: Patient presents with: Urinary Frequency: Burning with urination Confusion Leg Edema: Right lower leg, redness, blisters Nursing Intake: There are no exam notes on file for this visit. Subjective Ms. Winston is a 78 year old female who presents with the following complaint(s): The history is provided by the patient. No industrial roofer was used. UTI This is a new [...] Reported on 03/07/2023) MULTIVITAMIN (more content not included)...[facility] 12-07-2023 History of Present illness Narrative* Komal Cohn DO - 12/07/2023 10:32 AM EDT Images from the original note were not included. [facility] [place] Cohn DO [address] [place] [address] Date of Evaluation: 12/07/2023 Patient Name: Mikel Winston : 1945 Chief Complaint: Patient presents with: Urinary Frequency: Burning with urination Confusion Leg Edema: Right lower leg, redness, blisters Nursing Intake: There are no exam notes on file for this visit. Subjective Ms. Winston is a 78 year old female who presents with the following complaint(s): The history is provided by the patient. No industrial roofer was used. UTI This is a new [...] 118/60 Pulse 80 Temp 98.2 Ht 5' 4" (1.63m) Wt 209 lb (94.8kg) SpO2 96% [...] DO, 2023 10:52 PM documented in this encounterSt. John Of God [facility]02-21-2024 Miscellaneous Notes* Telephone Encounter - Marilin Rosales LPN - 09/28/2023 4:09 PM EST Pharmacy faxed requesting the following refill Refill(s) Requested: Requested Prescriptions Pending Prescriptions Disp Refills MYRBETRIQ 25 mg Tb24 [Pharmacy Med Name: MYRBETRIQ ER 25 MG TABLET] 90 tablet 1 Sig: take 1 tablet by mouth every day ALLERGIES Allergen Reactions Codeine Hives, Rash Codeine Sulfate Unknown (home) [phone] (cell) Last Office Visit Date: 06/27/2023 Last Distance Health Visit: Visit date not found Future Appointment: Visit date not found The patients preferred pharmacy has been captured for this encounter? yes Request is for script(s) to be escript to pharmacy. Marilin Rosales LPN documented in this encounterSt. John Of God Hospital01-15-2024 NoteHNO ID: [id number] Author: GOGO BARBOSA RN Service: ? Author Type: Registered Nurse Type: Progress Notes Filed: 08/22/2023 15:11 Note Text: POPULATION HEALTH NAVIGATION OUTREACH Action/FYI Patient Identified by Name and : YES, Outreach Outcome/Action Chart reviewed and record for caregap Controlling Blood Pressure uploaded to [employer]. Reason for Outreach Care Gap or Scheduling/Wellness visits Payer: Payor: [employer] / Plan: [employer] MEDICARE ADVANTAGE HMO / Product Type: HMO / Care Gap Reviewed:: Controlling Blood Pressure Navigation Signature: Gogo Barbosa RN August 22, 2023 3:08 [facility]01[facility] NotePatient Outreach (AGACM) MIKEL WINSTON ([id number]) 1945 F Date Time Provider Department 08/22/23 GOGO BARBOSA [facility] During your visit today, we recorded the following information about you: Gogo Barbosa RN 08/22/2023 3:11 PM Signed POPULATION HEALTH NAVIGATION OUTREACH Action/FYI Patient Identified by Name and : YES, Outreach Outcome/Action Chart reviewed and record for caregap Controlling Blood Pressure uploaded to [employer]. Reason for Outreach Care Gap or Scheduling/Wellness visits Payer: Payor: [employer] / Plan: [employer]M MEDICARE ADVANTAGE HMO / [...] [R01.1] 12/26/2022 Platelets decreased (HCC) [D69.6] 12/26/2022 Encounter Status:Closed by GOGO BARBOSA on 08/22/23[facility] 07-26-2023 Miscellaneous Notes* Telephone Encounter - Arnel Govea LPN - 07/26/2023 9:38 AM EST Pharmacy faxed requesting the following refill Refill(s) Requested: Requested Prescriptions Pending Prescriptions Disp Refills furosemide (LASIX) 20 mg tablet [Pharmacy Med Name: FUROSEMIDE 20 MG TABLET] 90 tablet 0 Sig: take 1 tablet by mouth every day ALLERGIES Allergen Reactions Codeine Hives, Rash Codeine Sulfate Unknown (home) [phone] (cell) Last Office Visit Date: 06/27/2023 Last Distance Health Visit: Visit date not found Future Appointment: Visit date not found The patients preferred pharmacy has been captured for this encounter? yes Request is for script(s) to be escript to pharmacy. Arnel Govea LPN documented in this encounterSt. John Of God Hospital12-07-2023 Miscellaneous Notes* Telephone Encounter - Marilin Rosales LPN - 07/14/2023 8:05 AM EST Pharmacy faxed requesting the following refill Refill(s) Requested: Requested Prescriptions Pending Prescriptions Disp Refills losartan (COZAAR) 25 mg tablet [Pharmacy Med Name: LOSARTAN POTASSIUM 25 MG TAB] 90 tablet 0 Sig: take 1 tablet by mouth every day ALLERGIES Allergen Reactions Codeine Hives, Rash Codeine Sulfate Unknown (home) [phone] (cell) Last Office Visit Date: 06/27/2023 Last Distance Health Visit: Visit date not found Future Appointment: Visit date not found The patients preferred pharmacy has been captured for this encounter? yes Request is for script(s) to be escript to pharmacy. Marilin Rosales LPN documented in this encounterSt. John Of God Hospital11-27-2023 Miscellaneous Notes* Telephone Encounter - Arnel [...] I think I sent? documented in this encounterSt. John Of God Hospital11-26-2023 Evaluation note* Diagnosis Type 2 diabetes mellitus with stage 3 chronic kidney disease, without long-term current use of insulin, unspecified whether stage 3a or 3b CKD (HCC)- Primary Primary hypertension Unspecified essential hypertension Recurrent UTI (urinary tract infection) Urinary tract infection, site not specified Heart murmur Undiagnosed cardiac murmurs Obesity, Class I, BMI 30-34.9 Obesity, unspecified documented in [facility]-20-2023 History of Present illness Narrative* Komal Cohn DO - 06/27/2023 11:04 AM EST Images from the original note were not included. [facility] Medicine [place] Komal Cohn DO [address] [place] [address] Date of Evaluation: 06/27/2023 Patient Name: Mikel Winston : 1945 Chief Complaint: Patient presents with: F/U 3 Month Diabetes Hypertension Nursing Intake: There are no exam notes on file for this visit. Subjective Ms. Winston is a 77 year old female who presents with the following complaint(s): The history is provided by the patient. No industrial roofer was used. Diabetes She presents for her [...] 128/60 Pulse 67 Temp 97.5 Ht 5' 4" (1.63m) Wt 200 lb (90.7kg) SpO2 99% [...] 6 months (around 12/26/2023). Attestation: Scribe Statement: I Melanie Ellsworth am scribing for, and in the presence of, Komal Cohn DO June 27, 2023 1:19 PM. Physician Statement: I, Komal Cohn DO, personally performed the services described in the documentation, as scribed by Melanie Ellsworth in my presence, and it is both accurate and complete June 27, 2023 11:10 AM. documented in this encounterSt. John Of God Hospital09-20-2023 Miscellaneous Notes* Telephone Encounter - Arnel Govea LPN - 04/27/2023 8:30 AM EDT Pharmacy faxed requesting the following refill Refill(s) Requested: Requested Prescriptions Pending Prescriptions Disp Refills levothyroxine (SYNTHROID) 50 mcg tablet [Pharmacy Med Name: LEVOTHYROXINE 50 MCG TABLET] 90 tablet 3 Sig: take 1 tablet by mouth every day ALLERGIES Allergen Reactions Codeine Hives, Rash Codeine Sulfate Unknown (home) [phone] (cell) Last Office Visit Date: 03/14/2023 Last [facility] Health Visit: Visit date not found Future Appointment: 06/13/2023 The patients preferred pharmacy has been captured for this encounter? yes Request is for script(s) to be escript to pharmacy. Arnel Govea LPN documented in this encounterSt. John Of God Hospital08-23-2023 History of Present illness Narrative* Jose Rojas MD - 03/30/2023 10:40 AM EDT Images from the original note were not included. [facility] CARDIOLOGY [address] [facility] [address] Dept: [phone] Dept Loc: [phone] DATE of SERVICE:03/30/23 TIME of SERVICE: 11:03 [...] of 1.1. She comes in today doing "better" than her last visit. She says that [...] lb 6.4 oz (89.5 kg) Height: 5' 4" (1.626 m) Body mass index is 33.88 [...] back in 6 months. documented in this [facility]08-07-2023 History of Present illness Narrative* Komal Cohn DO - 03/14/2023 10:52 AM EDT Images from the original note were not included. [facility] [place] Komal Cohn DO [address] [place] [address] Date of Evaluation: 03/14/2023 Patient Name: Mikel [...] history is provided by the patient. No industrial roofer was used. Edema This is a chronic [...] 142/68 Pulse 66 Temp 97.6 Ht 5' 4" (1.63m) Wt 196 lb (88.9kg) SpO2 99% [...] for medication follow up. Attestation: Scribe Statement: Vicenta Ellsworth am scribing for, and in the presence of, Komal Cohn DO March 14, 2023 11:11 AM. Physician Statement: I, Komal Cohn DO, personally performed the services described in the documentation, as scribed by Melanie Ellsworth in my presence, and it is both accurate and complete March 14, 2023 11:14 AM. documented in this encounterSt. John Of God Hospital08-01-2023 Miscellaneous Notes* Telephone Encounter - Grace Linda LPN - 03/08/2023 2:03 PM EDT Pt notified of results and verbalized understanding. * Telephone Encounter - Komal Cohn DO - 03/08/2023 10:45 AM EDT No deep vein clot just do what we discussed yesterday, documented in this encounterSt. John Of God Hospital07-31-2023 Miscellaneous Notes* Telephone Encounter - Marilin [...] Codeine Hives, Rash Codeine Sulfate Unknown (home) [phone] (cell) Last Office Visit Date: 03/07/2023 Last [facility] Health Visit: Visit date not found Future Appointment: 06/13/2023 The patients preferred pharmacy has been captured for this encounter? yes Request is for script(s) to be escript to pharmacy. Marilin Rosales LPN documented in this encounterSt. John Of God Hospital07-31-2023 History of Present illness Narrative* Komal Cohn DO - 03/07/2023 11:12 AM EDT Images from the original note were not included. [facility] Family Medicine [place] DO Lalit [address] [place] [address] Date of Evaluation: 03/07/2023 Patient Name: Mikel Winston : 1945 Chief Complaint: Patient presents with: Swelling: Right leg swelling and redness. Left foot swelling. Urinary Frequency Nursing Intake: There are no exam notes on file for this visit. Subjective Ms. Winston is a 77 year old female who presents with the following complaint(s): The history is provided by the patient. No industrial roofer was used. Edema This is a recurrent [...] 130/60 Pulse 61 Temp 98.2 Ht 5' 4" (1.63m) Wt 198 lb (89.8kg) SpO2 98% [...] 07, 2023 11:33 AM. documented in this encounterSt. John Of God Hospital07-26-2023 Miscellaneous Notes* Telephone Encounter - Tigist Elliott - 03/02/2023 4:09 PM EDT Returned Pt's [...] ride to reschedule. * Telephone Encounter - Tigist Elliott - 03/02/2023 4:09 PM EDT ----- Message [...] for the UTI Was Patient Referred to [facility] Emergency Treatment (Y/N): no Did Patient Agree (Y/N): n/a Was An Attempt Made To Transfer The Patient To The Office (Y/N): no Were You Able To Reach Someone At The Office (Y/N): n/a If Yes - Patient Was Transferred To (Caregivers Name): n/a If No - Which [facility] Leadership Community Support Associate Did You Speak With Regarding This Patient: n/a Was an appointment scheduled (Y/N): no-unable to schedule same day Reason patient was requesting visit (RFV/signs and symptoms/diagnosis) : leg swelling in 1 leg withrash, possible UTI as well---unable to schedule same day or for the UTI Person calling if other than patient: n/a Return call to if other than patient: n/a Best contact number: [phone] Thank you, Seema Malik March 02, 2023 3:44 PM documented in this encounterSt. John Of God Hospital07-17-2023 Miscellaneous Notes* Telephone Encounter - Arnel [...] Codeine Hives, Rash Codeine Sulfate Unknown (home) [phone] (cell) Last Office Visit Date: 12/13/2022 Last [facility] Health Visit: Visit date not found Future Appointment: 06/13/2023 The patients preferred pharmacy has been captured for this encounter? yes Request is for script(s) to be escript to pharmacy. Arnel Govea LPN documented in this encounterSt. John Of God Hospital05-09-2023 Miscellaneous Notes* Telephone Encounter - Arnel [...] Codeine Hives, Rash Codeine Sulfate Unknown (home) [phone] (cell) Last Office Visit Date: 12/13/2022 Last [facility] Health Visit: Visit date not found Future Appointment: 06/13/2023 The patients preferred pharmacy has been captured for this encounter? yes Request is for script(s) to be escript to pharmacy. Arnel Govea LPN documented in this encounterSt. John Of God Hospital05-05-2023 Telephone encounter Note * Telephone Encounter - Charley Parker APRN - JATIN - 12/10/2022 9:58 AM EDT I called and advised her echo completed December 08, 2022 documents a stable, mildly reduced LV function,EF 45%, she has continued moderate aortic stenosis, which is also stable in comparison to her priorecho December 14, 2021. We will continue her present medications, she agrees to keep her upcoming appointment scheduled with Dr. Rojas in March. [facility] [id number] Miscellaneous Notes* Telephone Encounter - GARCIA Pringle [...] keep her upcoming appointment scheduled with Dr. Rojas in March. * Telephone Encounter - GARCIA [...] discuss her plan of care with Dr. Rojas to see if any further recommendations prior to her next scheduled office visit in March. documented in this encounterSSalem City [id number] Telephone encounter Note* Telephone Encounter - GARCIA [...] discuss her plan of care with Dr. Rojas to see if any further recommendations prior to her next scheduled office visit in March. [facility] [id number] Hospital Discharge instructions* Discharge Instr - Activity* GARCIA Ruiz CNP - 11/19/2022 12:51 PM EDT As tolerated * Discharge Instr - Diet* GARCIA Ruiz CNP - 11/19/2022 12:51 PM EDT Carb controlled * Attachments The following attachments cannot be sent through Care Everywhere. * Urinary Tract Infection Discharge Instructions, Adult ([place]) documented in this [facility]04-14-2023 History of Present illness Narrative* Erma French - 11/19/2022 9:07 AM EDT Nutrition rescreen completed. Patient assigned a level 1. documented in this [place] [id number] Miscellaneous Notes* Significant Event - GARCIA Weeks CNP - 11/18/2022 1:20 AM EDT I am not directly involved in care of this patient. Accepted with initial orders placed remotely from [facility] with approval from Dr. Henderson. Further care to be managed by ED provider pending day shift CDU provider arrival. This is a non- billable note. documented in this encounterSSalem City [id number] Note* Significant Event - GARCIA Weeks CNP - 11/18/2022 1:20 AM EDT I am not directly involved in care of this patient. Accepted with initial orders placed remotely from [facility] with approval from Dr. Henderson. Further care to be managed by ED provider pending day shift CDU provider arrival. This is a non- billable note. [place] [id number] Note* Significant Event - GARCIA Weeks CNP - 11/18/2022 1:20 AM EDT I am not directly involved in care of this patient. Accepted with initial orders placed remotely from [facility] with approval from Dr. Henderson. Further care to be managed by ED provider pending day shift CDU provider arrival. This is a non- billable note. [id number] Emergency department Note* Ajit Gray DO - 11/17/2022 8:19 PM EDT Emergency Department Encounter [facility] ED Patient: Mikel Winston : 1945 Date of Evaluation: 11/17/2022 ED Provider: jAit Gray DO Chief Complaint Chief Complaint Patient presents with Urinary Frequency Pt states painful urination, family states that pt has been acting more confused since Tuesday. PT was able to answer orientation questions appropriately. NANWALEK Mikel Winston is a 77 y.o. female [...] BARRY and early cystitis. Diagnoses as of 11/18/22148 BARRY (acute kidney injury) (CMS/HCC) (HCC) Cystitis [...] sepsis or septic shock (if yes, use ".sepsiscoremeasure") - no, does not meet SIRS criteria Final Impression 1. BARRY (acute kidney injury) (CMS/HCC) ([facility]) 2. Cystitis DISPOSITION observation Comment: Please note this report has been produced using speech recognition software and may contain errors related to that system including errors in grammar, punctuation, and spelling, as well as words and phrases that may be inappropriate. If there are any questions or concerns please feel free to contact the dictating provider for clarification. Ajit Gray DO [employer] Ajit Gray DO 11/18/22 0154 documented in this [facility]04-12-2023 Physician Emergency department Note* Ajit Gray DO - 11/17/2022 8:19 PM EDT Emergency Department Encounter [facility] ED Patient: Mikel Winston : 1945 Date of Evaluation: 11/17/2022 ED Provider: Ajit Gray DO Chief Complaint Chief Complaint Patient presents with Urinary Frequency Pt states painful urination, family states that pt has been acting more confused since Tuesday. PT was able to answer orientation questions appropriately. NAN[place] Mikel Winston is a 77 y.o. female [...] sepsis or septic shock (if yes, use ".sepsiscoremeasure") - no, does not meet SIRS criteria Final Impression 1. BARRY (acute kidney injury) (CMS/HCC) ([facility]) 2. Cystitis DISPOSITION observation Comment: Please note [...] [employer] Ajit Gray DO 11/18/22 0154 [facility] [id number] Miscellaneous Notes* Telephone Encounter - Marilin Rosales [...] say twice a day to [facility] in [place] Order pended * Telephone Encounter - Tigist Elliott - 11/10/2022 10:58 AM EDT Pt called in and said her glucose monitor stopped working. She would like someone to call her back (home # first and then mobile) to discuss what to do. She doesn't want to fruit or nut picker her test strips yet because she is not sure if she will get the same testing unit. documented in this encounterSt. John Of God Hospital03-13-2023 Miscellaneous Notes* Telephone Encounter - Arnel [...] pharmacy. Arnel Govea LPN documented in this encounterSt. John Of God Hospital02-23-2023 History of Present illness Narrative* Charley Parker, 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 - 09/30/2022 11:00 AM EST Images from the original note were not included. [facility] Cardiology Office Note DATE of SERVICE: 09/30/22 TIME of SERVICE: 12:00 PM Reason for Visit: Chief Complaint Patient presents with 6 Month Follow-up History ofPresent Illness: Mikel Winston is a 77 y.o. female who is known to Dr. Rojas. She has a history of coronary artery [...] found for: VLDL No results found for: CHOLHDLRATIO" Other Testing: Cardiac Tests: Last Echo (date: [...] evaluation and to assess for progression 3. Cxdvgxnpvwcr-wcpl-aytdccwmuc 4. Dyslipidemia-high intensity statin therapy continues, rosuvastatin 20 mg daily for cardiac risk reduction 5. Follow-up-6 months and as needed. Charley Parker APRN/STEAM TRAP WORKER documented in this [facility]02-13-2023 Miscellaneous Notes* Telephone Encounter - Marilin Rosales LPN - 09/20/2022 9:15 AM EST E-Prescribing Status: Receipt confirmed by pharmacy (08/19/2022 11:02 AM EST) 90 tablets was given 08/19/22. documented in this encounterSt. John Of God Hospital02-09-2023 Miscellaneous Notes* Telephone Encounter - Marilin Rosales LPN - 09/16/2022 2:10 PM EST 90 tablets was sent 08/19/22. E-Prescribing Status: Receipt confirmed by pharmacy (08/19/2022 11:02 AM EST) documented in this encounterSt. John Of God Hospital01-16-2023 Miscellaneous Notes* Telephone Encounter - Marilin [...] pharmacy. Marilin Rosales LPN documented in this encounterSt. John Of God Hospital01-12-2023 Miscellaneous Notes* Telephone Encounter - Marilin Rosales LPN - 08/19/2022 9:37 AM EST Medication pended * Telephone Encounter - Nanette Nelson - 08/19/2022 9:30 AM EST Pt requesting refill of Losartan 25mg 1 daily. Pt is almost out. Please send to [facility] in [place] Nanette Nelson documented in this encounterSt. John Of God Hospital01-09-2023 Miscellaneous Notes* Telephone Encounter - Arnel [...] pharmacy. Arnel Govea LPN documented in this encounterSt. John Of God Hospital01-09-2023 History of Present illness Narrative* Komal Cohn DO - 08/16/2022 11:29 AM EST Images from the original note were not included. [facility] [place] Komal Cohn DO [address] [place] [address] Date of Evaluation: 08/16/2022 Patient Name: Mikel Winston : 1945 Chief Complaint: Patient presents with: Diabetes Hypertension Cough Nasal Congestion wants to discuss how much Furosemide to take Nursing Intake: There are no exam notes on file for this visit. Subjective Ms. Winston is a 77 year old female who presents with the following complaint(s): The history is provided by the patient. No industrial roofer was used. Diabetes She presents for her [...] 130/62 Pulse 67 Temp 98.2 Ht 5' 4" (1.63m) Wt 190 lb (86.2kg) SpO2 98% [...] and complete August 16, 2022 11:40 AM.Komal oChn DO August 16, 2022 11:35 AM. documented in this encounterSt. John Of God Hospital09-26-2022 History of Present illness Narrative* Komal Cohn DO - 05/03/2022 11:18 AM EDT Images from the original note were not included. [facility] [place] C[place] [facility] [address] [place] [address] Date of Evaluation: 05/03/2022 Patient Name: Mikel [...] history is provided by the patient. No industrial roofer was used. Diabetes She presents for her [...] 118/58 Pulse 63 Temp 97.8 Ht 5' 4" (1.63m) Wt 188 lb (85.3kg) SpO2 96% [...] 08/02/2022). Komal Cohn DO Attestation: Scribe Statement: I Melanie Ellsworth am scribing for, and in the presence of, Komal Cohn DO May 03, 2022 11:27 AM. Physician Statement: I, Komal Cohn DO, personally performed the services described in the documentation, as scribed by Melanie Ellsworth in my presence, and it is both accurate and complete May 03, 2022 11:33 AM. documented in this encounterSt. John Of God Hospital09-26-2022 Miscellaneous Notes* Telephone Encounter - Marilin Rosales LPN - 05/03/2022 11:18 AM EDT Patient has an appt today * Telephone Encounter - Komal Cohn DO - 04/30/2022 11:00 AM EDT * Telephone Encounter - Marilin Rosales LPN - 04/29/2022 3:46 PM EDT Images from the original note were not included. Jackie from [facility] home called in and left [...] the lasix and losartan. documented in this encounterSt. John Of God Hospital09-21-2022 Miscellaneous Notes* Telephone Encounter - Le Graves - 04/28/2022 11:24 AM EDT PT RETURNED CALL AND WAS GIVEN NEW INSTRUCTIONS W MEDICATIONS PT IS SCHEDULED 05/03/22 ALSO. SO ANY FURTHER QUESTIONS SHE WILL ASK AT THIS APPT SHE STATED. documented in this encounterSt. John Of God Hospital09-20-2022 Miscellaneous Notes* Telephone Encounter - Komal Cohn DO - 04/27/2022 2:55 PM EDT Decrease lasix to 20 mg day decrease losartan to 25 mg day bmp 2 weeks written documented in this encounterSt. John Of God Hospital09-12-2022 Miscellaneous Notes* Telephone Encounter - Grace [...] PM EDT Rec'd call from Noemi at [facility]. She seen patient and states that she has 2+ pitting edema, with a 4.6 # wt gain. Pt has 20mg Lasix prn. Is it ok for the patient to take 20mg daily until the swelling goes down. Please advise documented in this encounterSt. John Of God Hospital09-06-2022 Miscellaneous Notes* Telephone Encounter - Grace [...] (home) Last Office Visit Date: 01/18/2022 Last [facility] Health Visit: Visit date not found Future Appointment: 05/03/2022 The patients preferred pharmacy has been captured for this encounter? yes Request is for script(s) to be escript to pharmacy. Grace Linda LPN documented in this encounterSt. John Of God Hospital07-18-2022 Miscellaneous Notes* Telephone Encounter - Alia [...] De La Paz LPN documented in this encounterSt. John Of God Hospital07-15-2022 Miscellaneous Notes* Telephone Encounter - Nanette Nelson - 02/19/2022 3:25 PM EDT Pt has been recertified for home care. She will be seen once weekly every other week for 8 weeks, to help her understand diabetes and CHF Nanette Nelson documented in this encounterSt. John Of God Hospital06-14-2022 Miscellaneous Notes* Telephone Encounter - Le Canales - 01/19/2022 3:00 PM EDT LATONYA A TAX COLLECTION COORDINATOR W [facility] [employer] PHONED W HIS RECOMMENDATION W HER INCOME SHE SHOULD QUALIFY FOR WAIVERED MEDICAID PLAN. SHE HAS AGREED TO SPEAK W SOMEONE W [facility] ON [address]. THIS WILL HELP PROVIDE MORE SERVICES FOR HER W HELP IN THE HOME. (STATED PATIENT IS $300-$400 OVER IN HER INCOME FOR MEDICAID. BUT SHE IS BORDERLINE FOR POVERTY LEVEL. LATONYA CAN BE REACHED AT [phone] documented in this encounterSt. John Of God Hospital05-31-2022 Miscellaneous Notes* Telephone Encounter - Komal Cohn DO - 01/05/2022 4:30 PM EDT Anemia studies pending Radha resulted I need to see to discuss * Telephone Encounter - Nanette Nelson - 01/05/2022 2:18 PM EDT Pt calling for results. I let pt know that the lab results are in Dr Cohn's office. Nanette Nelson * Telephone Encounter - Nanette Juan David - 01/05/2022 2:18 PM EDT ----- Message [...] VERIFY IF WE RECEIVED RECENT LABS FROM [employer] Was Patient Referred to [facility]/Seek Emergency Treatment (Y/N): NA Did Patient Agree (Y/N): NA Was An Attempt Made To Transfer The Patient To The Office (Y/N): N Were You Able To Reach Someone At The Office (Y/N): NA If Yes - Patient Was Transferred To (Caregivers Name): NA If No - Which [facility] Leadership Community Support Associate Did You Speak With Regarding This Patient: NA Was an appointment scheduled (Y/N): Y Reason patient was requesting visit (RFV/signs and symptoms/diagnosis) : REQUESTING TO VERIFY IF THE OFFICE RECEIVED HER RECENT LAB WORK FROM [employer] Person calling if other than patient: PATIENT Return call to if other than patient: PATIENT Best contact number: [phone] Thank you, Dari Varela January 05, 2022 12:11 PM documented in this encounterSt. John Of God Hospital05-27-2022 Miscellaneous Notes* Telephone Encounter - Komal Cohn DO - 01/01/2022 4:33 PM EDT Anemia. Any bleeding ckd Needs anemia labs. Ill need to see bt labs ordered documented in this encounterSt. John Of God Hospital05-19-2022 Miscellaneous Notes* Telephone Encounter - Marilin [...] pharmacy. Marilin Rosales LPN documented in this encounterSt. John Of God Hospital05-19-2022 Miscellaneous Notes* Telephone Encounter - Fawad Perez DO - 12/24/2021 11:17 AM EDT I reviewed her hospital discharge summary. She had sepsis with Enterococcus. Infectious disease recommended the Linezolid. There is not a clear substitute. See if we can process the prior authorization. I know it is expensive but the patient may want to pay [id number] to get the best antibiotic. Dr. Perez [...] the physician covering for him. I contacted [facility] and they stated that the medication does require aPA - it is not approved be Medicare. I asked that the PA request be sent to the office. Is there another medication that can be given to the patient? Please advise. documented in this encounterSt. John Of God Hospital05-17-2022 NoteDischarge Summary Mikel Winston : 1945 [...] relief after 1 dose, call 911. nystatin [id number] UNIT/GM powder Commonly known as: MYCOSTATIN omeprazole [...] Your Medications These medications were sent to [facility]/pharmacy #[id number] - [place], [place] - [address] [phone] - F [phone] [address] [facility] [id number] ? atenolol 50 MG tablet ? benzonatate 100 MG capsule ? levothyroxine 50 MCG tablet ? linezolid 600 MG tablet DIET: No diet orders on file ACTIVITY: No restriction. up with assist SIGNIFICANT DIAGNOSTIC STUDIES: COMPLEXITY OF FOLLOW UP: [] Moderate Complexity: follow up within 7-14 calendar days (82263) [] Severe Complexity: follow up within 7 calendar days (46925) FOLLOW UP TESTING, PENDING RESULTS OR REFERRALS [...] minutes SIGNED: Nguyen Mclaughlin MD 12/30/2021, 2:31 [facility]05-17-2022 Hospital Discharge instructions * Discharge Instr [...] most local grocery stores, pharmacies, and chain [employer]-stores. If you have any questions about your diet or nutrition, call the hospital and ask for the dietitian. Heart Healthy * Discharge Instr - Lab* Diya Vaughan LPN - 12/20/2021 1:18 PM EDT Your physician has ordered skilled home care services for you. Your home care will be provided by: [facility] [phone] Scheduling [phone] * Additional Instructions* Linda Tejeda MD - 12/13/2021 Please return to the emergency department if your symptoms change or worsen. * Attachments The following attachments cannot be sent through Care Everywhere. * UTI (Urinary Tract Infection): Female ([place]) documented in this encounterSUMMA Work Phone: 1(967) 920-528605-17-2022 History of Present illness Narrative* Sue Flood RCP - 12/22/2021 2:36 PM EDT [facility] Respiratory Care Department Progress Note SpO2 at rest on RA = 99% SpO2 with ambulation on RA = 97% Distance Walked = 100' Recovery SpO2 with ambulation = 99% Qualify for home O2 Y/N = No Patient mobile at home Y/N = Yes * Grace Galvez, PARKS RECREATION DIRECTOR - 12/22/2021 1:48 PM EDT Physical Therapy Facility/Department: [facility] Physical Therapy Treatment Note Name: Mikel [...] independence. Recommend Home with assist PRN and [facility] PT at discharge. Activity Tolerance Activity Tolerance: [...] Ambulation Assistance: Independent Transfer Assistance: Independent Active Liquor Commissioner: No Patient's Liquor Commissioner Info: children Occupation: Retired Vision/Hearing Cognition Orientation [...] Stairs # Steps : 2 Stairs Height: 6" Rails: Right ascending Device: No Device Assistance: Stand by assistance Exercise Treatment: Declined secondary to need for bathroom use AM-PAC Score [facility] Inpatient Mobility Raw Score : 23 (12/22/21 134) [facility] Inpatient T-Scale Score : 56.93 (12/22/21 134) Mobility Inpatient CMS 0-100% Score: 11.2 (12/22/21 134) Mobility Inpatient CMS G-Code Modifier : CI (12/22/211347) Goals Short Term Goals Time Frame for [...] Timed Code Treatment Minutes: 12 Minutes (GT) PARKS RECREATION DIRECTOR wore surgical mask and gloves throughout entire session with patient. Patient wore mask at all times when out of room. Grace Galvez PTA * DAVIS Sauer - 12/22/2021 12:41 PM EDT Occupational Therapy Facility/Department: [facility]E TELEMETRY Occupational Therapy Daily Treatment Note Name: [...] Ambulation Assistance: Independent Transfer Assistance: Independent Active Liquor Commissioner: No Patient's Liquor Commissioner Info: children Occupation: Retired Safety Devices Type [...] to fww Cognition Overall Cognitive Status: WFL [facility] Score [facility] Inpatient Daily Activity Raw Score: 22 (12/22/211515) [facility] Inpatient ADL T-Scale Score : 47.1 (12/22/211515) ADL Inpatient [facility] 0-100% Score: 25.8 (12/22/211515) ADL Inpatient [facility] G-Code Modifier : CJ (12/22/211515) Goals Short [...] included. Hospitalist Progress Note 12/21/2021 5:09 PM [phone]: Please page me or perfect serve me for patient care issues. [phone]: Please page [facility] night Hospitalist for any issues. Subjective: Admit Date: 12/13/2021 PCP: KOMAL COHN DO Room#: 260/4609 Admitting synopsis:Admitted 12/13/21 with AMS and found [...] the last 72 hours. BMP: Recent Labs 12/19/2153612/20/2152612/21/21521 NA 133* 136 137 K 3.7 3.8 3.9 CL 101 101 103 CO2 31* 33* 31* BUN 26* 26* 22* CREATININE 1.13 1.02 1.01 GLUCOSE 117* 125* 122* CALCIUM 9.1 9.3 9.4 ANIONGAP 2* 3 3 LIVER PROFILE: Recent Labs 12/19/2153612/20/2152612/21/21521 AST 49* 85* 40 ALT 12 13 [...] (37.2 C) (Temporal) Resp 18 Ht 5' 5" (1.651 m) Wt 195 lb 11.2 oz [...] Severe Extremities (HF dx, cellulitis of leg.) Cnc Machine Programmer Strength: Not Performed Nutrition Assessment: Pt states [...] Salt (3-4 gm) Anthropometric Measures: Height: 5' 5" (165.1 cm) [place] Body Weight (IBW): 125 lbs (57 kg) [...] On: Kcal/kg Weight Used for Energy Requirements: [place] Energy (kcal/day): 1425 - 1700 kcal (25-30) Weight Used for Protein Requirements: [place] Protein (g/day): 57-86 g (1-1.2) Method Used for Fluid Requirements: ml/Kg Fluid (ml/day): 5249-7344 or per MD Nutrition Diagnosis: Altered nutrition-related [...] Edema Discharge Planning: Continue current diet Nurys Beckie Contact: #[phone] * GARCIA Hawkins CNP - 12/21/2021 1:11 [...] ROM Expected Impact [] POA Clarified [] TRANSPORTATION DIRECTOR Avoided [] Nursing Function [] Provider Function for [name] [x] Orders Placed [] Symptom Assessment [] Patient Experience [] Patient / Caregiver Conversation * GARCIA King CNP - 12/20/2021 3:56 PM EDT Family Communication Number Called: [phone] Name of Designated Family Hog Operator: Arnel Forte Relationship to Patient: daughter Phone Call Outcome: I spoke with the individual listed above. Family Hog Operator Updated on the Following: POC and updated status * Amauri Turcios RPH - 12/20/2021 1:40 PM EDT Pharmacy Vancomycin Consult Follow-Up Note Current Dosin Q12h: Last dose held due to trough = 27 (LD 12/19 @ 13:14) Recent Labs 12/19/21 0537 12/20/21 0527 BUN 26* 26* Recent Labs 12/19/21 0537 12/20/21 0527 CREATININE 1.13 1.02 Recent Labs 12/18/21 0239 WBC 6.3 Ht Readings from Last 1 Encounters: 12/16/21 5' 5" (1.651 m) Wt Readings from Last 1 Encounters: 12/20/21 204 lb 4.8 oz (92.7 kg) Body mass index is 34 kg/m . Estimated Creatinine Clearance: 53 mL/min (based on SCr of 1.02 mg/dL). Trough: 22.8 mcg/ml drawn 12/20/2021 at 12:26 Assessment/Plan: Will reduce dose to 1750mg Q24 hours and draw trough prior to 3rd new dose 12/22 @ 13:00 * GARCIA King CNP - 12/20/2021 12:01 PM EDT Images from the original note were not included. Hospitalist Progress Note 12/20/2021 12:01 PM [phone]: Please page me ([phone]) or perfect serve me for patient care issues. [phone]: Please page [facility] night Hospitalist for any issues. Subjective: Admit Date: 12/13/2021 PCP: KOMAL COHN DO Room#: [id number] Admitting synopsis:Admitted 12/13/21 with AMS and found [...] RDW 13.0 PLT 108* BMP: Recent Labs 12/18/2123812/19/21 0512/20/21 05 NA 134* 133* 136 K 3.7 3.7 3.8 CL 104 101 101 CO2 30 31* 33* BUN 24* 26* 26* CREATININE 1.01 1.13 1.02 GLUCOSE 121* 117* 125* CALCIUM 9.1 9.1 9.3 ANIONGAP 1* 2* 3 LIVER PROFILE: Recent Labs 12/18/21 0239 12/19/21 0537 12/20/21 0527 AST 53* 49* 85* ALT 11 12 [...] (37.4 C) (Temporal) Resp 17 Ht 5' 5" (1.651 m) Wt 204 lb 4.8 oz [...] of Hospitalist Medicine Inpatient Medical Services PAGER: [phone] * Ginny Gramajo RPH - 12/19/2021 2:20 PM EDT Pharmacy Vancomycin Consult Follow-Up Note Current Dosin bid Recent Labs 12/18/21 0239 12/19/21 0537 BUN 24* 26* Recent Labs 12/18/21 0239 12/19/21 0537 CREATININE 1.01 1.13 Recent Labs 12/18/21 0239 WBC 6.3 Ht Readings from Last 1 Encounters: 12/16/21 5' 5" (1.651 m) Wt Readings from Last 1 Encounters: 12/18/21 204 lb (92.5 kg) Body mass index is 33.95 kg/m . Estimated Creatinine Clearance: 48 mL/min (based on SCr of 1.13 mg/dL). Trough: 27 mcg/ml drawn 12/19 at 1312 Assessment/Plan: Hold 1 dose and get random level 15 at 1300 prior to starting next dose * GARCIA King CNP - 12/19/2021 11:04 AM EDT Images from the original note were not included. Hospitalist Progress Note 12/19/2021 11:04 AM [phone]: Please page me ([phone]) or perfect serve me for patient care issues. [phone]: Please page [facility] night Hospitalist for any issues. Subjective: Admit Date: 12/13/2021 PCP: KOMAL COHN DO Room#: [id number] Admitting synopsis: Admitted 12/13/21 with AMS and [...] TID WC LABS: CBC: Recent Labs 12/18/21 0239 WBC 6.3 RBC 3.17* HGB 10.4* HCT [...] (37.4 C) (Temporal) Resp 18 Ht 5' 5" (1.651 m) Wt 204 lb (92.5 kg) [...] of Hospitalist Medicine Inpatient Medical Services PAGER: [phone] * Jess Espino PTA - 12/19/2021 10:33 AM EDT Physical Therapy Facility/Department: [facility] Daily Treatment Note Name: Mikel Winston [...] Ambulation?: No Stairs/Curb Stairs?: No AM-PAC Score AM-PAC Inpatient Mobility Raw Score : 23 (12/19/211026) AM-PAC Inpatient T-Scale Score : 56.93 (12/19/211026) Mobility Inpatient CMS 0-100% Score: 11.2 (12/19/211026) Mobility Inpatient CMS G-Code Modifier : CI [...] Time Individual Concurrent Group Co-treatment Time In 0844 Time Out 0900 Minutes 16 Timed Code Treatment Minutes: 15 Minutes (1 gait) Jess Espino PARKS RECREATION DIRECTOR * Stanley Manda Bai - 12/18/2021 1:29 PM EDT Occupational Therapy Facility/Department: [facility] Occupational Therapy Daily Treatment Note Name: [...] Ambulation Assistance: Independent Transfer Assistance: Independent Active Liquor Commissioner: No Patient's Liquor Commissioner Info: children Occupation: Retired Objective Pulse: 75 [...] (37.2 C) (Temporal) Resp 18 Ht 5' 5" (1.651 m) Wt 195 lb 11.2 oz [...] PT/OT, discharge planning, see orders. * Guy Dimas, [facility] - 12/18/2021 10:33 AM EDT [facility] Respiratory Care Department Progress Note As part [...] the care of this patient, * Grace Galvez PARKS RECREATION DIRECTOR - 12/17/2021 2:53 PM EDT Physical Therapy Facility/Department: [facility] Physical Therapy Treatment Note Name: Mikel [...] Ambulation Assistance: Independent Transfer Assistance: Independent Active Liquor Commissioner: No Patient's Liquor Commissioner Info: children Occupation: Retired Vision/Hearing Cognition Orientation [...] in standing. SUP sitting EOB AM-PAC Score AM-[facility] Inpatient Mobility Raw Score : 19 (12/17/211454) AM-PAC Inpatient T-Scale Score : 45.44 (12/17/211454) Mobility Inpatient CMS 0-100% Score: 41.77 (12/17/211454) Mobility Inpatient CMS G-Code Modifier : CK (12/17/211454) Goals Short [...] Treatment Minutes: 34 Minutes (GT, Ther Act) PARKS RECREATION DIRECTOR wore surgical mask and gloves throughout entire session with patient. Patient wore mask at all times when out of room. Grace Galvez PARKS RECREATION DIRECTOR * Ginny Gramajo RPH - 12/17/2021 2:20 PM EDT Pharmacy Vancomycin Consult Follow-Up Note Current Dosin q 24 Recent Labs 12/16/21 0415 12/17/21 0128 BUN 27* 28* Recent Labs 12/16/21 0415 12/17/21 0128 CREATININE 1.28* 1.06 Recent Labs 12/14/21 1810 12/15/21 0353 WBC 9.7 10.1 Ht Readings from Last 1 Encounters: 12/16/21 5' 5" (1.651 m) Wt Readings from Last 1 [...] Admit Date: 12/13/2021 8:26 AM PCP: KOMAL COHN, Code Status: Full Code Subjective: Remains on oxygen. No cp, sob, cough, n/v, f/c. Tolerating diet. Weak. D/w pt Physical Examination: Vitals: BP 94/62 Pulse 74 Temp 98.1 F (36.7 C) (Temporal) Resp 18 Ht 5' 5" (1.651 m) Wt 200 lb 9.6 oz [...] from the original note were not included. [facility] - Infectious Diseases Attending Progress Note Subjective: [...] 75 99 % 12/16/21 2045 98 % 12/16/21 2001 123/60 97.3 F (36.3 C) Temporal 70 [...] day. No growth at 2 days. 12/15/2021 BC No growth at 1 day. No growth at 2 days. 12/15/2021 Enterococcus faecalis 12/13/2021 BC 12/13/2021 Isolated: For identification and/or sensitivity, refer to culture collected on: 12/13/2021 at 1518 ([id number]). 12/13/2021 Enterococcus faecalis DETECTED; Leticia/B Not Detected. Presumptive identification performed using [email or web address] PCR methodology; confirmatory identification to follow. _ The [employer] BCID2 PCR Panel can detect the following [...] Abnormal Blood Culture, Routine Isolated: Resulting Agency [facility] Lab Contains abnormal data Culture, Blood 2 Order: [id number] Status: Final result Visible to patient: No [...] (37 C) (Temporal) Resp 18 Ht 5' 5" (1.651 m) Wt 203 lb8 oz (92.3 [...] lesions, rashes Data: Labs: Recent Labs 12/14/21 18112/15/21352 WBC 9.7 10.1 HGB 12.5 10.8* PLT 85* 75* Recent Labs 12/15/213 12/16/21 0415 NA 133* 131* K 3.2* [...] PT/OT,discharge planning, see orders. * Jade Bland, [facility] - 12/16/2021 12:22 PM EDT [facility] Respiratory Care Department Progress Note As [...] in the care of this patient, * aLurence Stanley RD, LD - 12/16/2021 11:57 AM [...] on sodium content of foods from the [facility] Care Manual. Pt did admit that [...] Severe Extremities (HF hx, cellulitis of leg) Cnc Machine Programmer Strength: Not Performed Nutrition Assessment: Pt was [...] Salt (3-4 gm) Anthropometric Measures: Height: 5' 5" (165.1 cm) [place] Body Weight (IBW): 125 lbs (57 kg) [...] On: Kcal/kg Weight Used for Energy Requirements: [place] Energy (kcal/day): 7460-5155 kcals (25-30) Weight Used for Protein Requirements: [place] Protein (g/day): 57-68 Fluid (ml/day): per MD [...] current diet Laurence Stanley RD, LD Contact: *[phone] * Ariel Solitario MD - 12/15/2021 1:44 PM EDT Progress Note 12/15/2021 1:44 PM Name: Mikel Winston IP Day: 2 Admit Date: 12/13/2021 8:26 AM PCP: KOMAL COHN DO Code Status: Full Code Subjective: No cp, sob, cough, n/v, f/c. Tolerating diet. D/w pt Physical Examination: Vitals: BP 130/60 Pulse 73 Temp 99 F (37.2 C) (Temporal) Resp 20 Ht 5' 5" (1.651 m) Wt 203 lb 8 oz [...] 12.5 10.8* PLT 85* 75* Recent Labs 12/14/21 1810 12/15/21 0353 NA 136 133* K 3.8 3.2* CL 108* 103 CO2 21* 24 BUN 24* 25* CREATININE 1.03 1.20 GLUCOSE 211* 212* Recent Labs 12/14/21 1810 12/15/21 0353 AST 63* 49* ALT 32 25 BILITOT 1.4* 1.2 ALKPHOS 94 68 Assessment and Plan: Sepsis Enterococcal bacteremia UTI Altered mental status RLE cellulitis HTN DM2 CAD CHF Plan: ID evaluation, continue IV antibiotics, follow up cx's, IVF, POCT, SSI, follow up labs, PT/OT, discharge planning, see orders. * Quinn Alcala OT - 12/15/2021 12:14 PM EDT Occupational Therapy Facility/Department: [facility] Occupational Therapy Initial Assessment Name: Mikel [...] above performance deficits. Recommend planned D/C for [facility] OT with assits PRN. Prognosis: Good [...] transfers this date. Cognition Overall Cognitive Status: [facility] Education Given To: Patient Education Provided: Role of Therapy;Plan of Care;Transfer Training;ADL Adaptive Strategies Education Method: Verbal Education Outcome: Verbalized understanding;Demonstrated understanding [facility] Score [facility] Inpatient Daily Activity Raw Score: 19 (12/15/211214) [facility] Inpatient ADL T-Scale Score : 40.22 (12/15/211214) [...] 12/15/2021 10:35 AM EDT Physical Therapy Facility/Department: [facility] Physical Therapy Initial Assessment Name: Mikel [...] Prognosis: Good Decision Making: Medium Complexity Exam: [facility] Clinical Presentation: Pt admitted 12/13 with UTI. She has medical history as indicated which contributes to her clinical presentation. She complete functional mobility CGA-SBA with FWW and will benefit from [facility] PT Barriers to Learning: None Requires [...] 23 Minutes (gait x1, ta x1) Siddharth Schaber, PT * Svetlana Vaughan DTR - 12/15/2021 7:34 AM EDT Nutrition rescreen completed. Pt referred to RD for CHF. * Tiffany Moreno LPN - 12/14/2021 5:27 PM EDT Patient c/o SOB SpO2 85-87% on RA. Applied O2 at 2L via NC. Audible expiratory wheezing heard. Patient states " I just don't feel good, I feel weak.". SpO2 increased to 3L and then to [...] (37.2 C) (Temporal) Resp 16 Ht 5' 5" (1.651 m) Wt 200 lb (90.7 kg) [...] 11:43 AM EDT Spoke with Luisa at [facility] in [place]. Current medication list updated and notified Dr. Solitario. * Emma Sales RN - 12/13/2021 7:04 PM EDT Spoke with son Costa Winston, he is the primary decision maker for his mother. Home medications need to be verified with [facility] pharmacy in [place]. He will call and get a list and bring to hospital tomorrow. He states his mother is normally Alert and oriented, but has been confused the last several days. * Emma Sales RN - 12/13/2021 6:41 PM EDT Attempted to get questions answered in the admission from Arnel Mejias, patients daughter and she said to call the son Costa. Called [phone] and no answer documented in this encounterSUMNM Work Phone: 1(968) 653-516705-10-2022 Miscellaneous Notes* Telephone Encounter - Marilin Rosales [...] Office Visit Date: 11/30/2021 Last [facility] Health Visit: Visit date not found Future Appointment: 03/01/2022 The patients preferred pharmacy has been captured for this encounter? yes Request is for script(s) to be escript to pharmacy. Marilin Rosales LPN documented in this encounterSt. [facility] Of [facility]04-25-2022 History of Present illness Narrative* Komal Cohn DO - 11/30/2021 1:31 PM EDT Images from the original note were not included. [facility] [place] Cohn DO [address] [place] [address] Date of Evaluation: 11/30/2021 Patient Name: Mikel Winston : 1945 Chief Complaint: Patient presents with: Diabetes Hypertension Results: results from 09/16. Nursing Intake: There are no exam notes on file for this visit. Subjective Ms. Winston is a 76 year old female who presents with the following complaint(s): The history is provided by the patient. No industrial roofer was used. Diabetes She presents for her [...] DO November 30, 2021 2:11PM. Physician Statement: IKomal DO, personally performed the services described in the documentation, as scribed by Melanie Castro in my presence, and it is both accurate and complete November 30, 2021 2:16 PM. documented in this [facility]04-18-2022 Miscellaneous Notes* Telephone Encounter - Grace [...] pharmacy. Grace Linda LPN documented in this [facility]01-28-2022 Miscellaneous Notes* Telephone Encounter - Nanette Nelson - 09/04/2021 2:55 PM EST Confirmation number: [id number] Nanette Nelson documented in this [facility]01-28-2022 Miscellaneous Notes* Telephone Encounter - Marilin [...] (home) Last Office Visit Date: 09/03/2021 Last [facility] Health Visit: Visit date not found Future Appointment: 11/30/2021 The patients preferred pharmacy has been captured for this encounter? yes Request is for script(s) to be escript to pharmacy. Marilin Rosales LPN documented in this encounterSt. John Of [facility] Hospital01-27-2022 History of Present illness Narrative* Komalasia Luna DO Lalit - 09/03/2021 2:23 PM EST Images from the original note were not included. [facility] Medicine [place] Komal Cohn, DO [address] [place] [address] Date of Evaluation: 09/03/2021 Patient Name: Mikel Winston : 1945 Chief Complaint: Patient presents with: Cough: x 2 weeks Diabetes Nursing Intake: There are no exam notes on file for this visit. Subjective Ms. Winston is a 76 year old female who presents with the following complaint(s): The history is provided by the patient. No industrial roofer was used. Cough This is a new [...] 144/78 Pulse 86 Temp 96.9 Ht 5' 4" (1.63m) Wt 198 lb (89.8kg) SpO2 97% [...] I50.9 - Referral to Cardiology given: current perinatology physician is retiring. - CONSULT TO CARDIOLOGY 3. [...] September 03, 2021 2:39 PM. Physician Statement: I, Komal Cohn DO, personally performed the services described in the documentation, as scribed by Melanie Castro in my presence, and it is both accurate and complete September 03, 2021 2:43PM. documented in this encounterSt. [facility] Miscellaneous Notes* Telephone Encounter - Marilin [...] pharmacy. Marilin Rosales LPN documented in this encounterSt. [facility]12-13-2021 Miscellaneous Notes* Telephone Encounter - Marilin [...] pharmacy. Marilin Rosales LPN documented in this encounterSt. [facility]10-[facility]-2021 History of Present illness Narrative* Komal Cohn DO - 05/28/2021 1:42 PM EDT Images from the original note were not included. [facility] [place] Komal Cohn DO [address] [place] [address] Date of Evaluation: 05/28/2021 Patient Name: Mikel Winston : 1945 Chief Complaint: Patient presents with: Hypertension: check up Hyperlipidemia Diabetes Nursing Intake: There are no exam notes on file for this visit. Subjective Ms. Winston is a 75 year old female who presents with the following complaint(s): The history is provided by the patient. No industrial roofer was used. Hypertension This is a chronic [...] 130/72 Pulse 78 Temp 98.4 Ht 5' 4" (1.63m) Wt 200 lb (90.7kg) SpO2 98% [...] May 28, 2021 2:06PM. documented in this encounterSt. [facility]08-16-2021 Miscellaneous Notes* Telephone Encounter - Jade Driscoll LPN - 03/23/2021 11:26 AM EDT Pharmacy faxed requesting the following refill Refill(s) Requested: Pending Prescriptions Disp Refills LEVOTHYROXINE 50 MCG TABLET 90 tablet 1 Sig: TAKE 1 TABLET BY MOUTH EVERY DAY ANNABELLE: Yes ALLERGIES Allergen Reactions Codeine Hives, Rash Codeine Sulfate Unknown (home) Last Office Visit Date: 02/25/2021 Last [facility] Health Visit: Visit date not found Future Appointment: 05/28/2021 The patients preferred pharmacy has been captured for this encounter? yes Request is for script(s) to be escript to pharmacy. Jade Driscoll LPN documented in this [facility]07-21-2021 Miscellaneous Notes* Telephone Encounter - Alia De La Paz LPN - 02/25/2021 2:14 PM EDT Pharmacy needs diagnoses code on script. Pended. documented in this [facility]07-19-2021 Miscellaneous Notes* Telephone Encounter - Marilin Rosales LPN - 02/23/2021 8:23 AM EDT Pharmacy faxed requesting the following refill Refill(s) Requested: Pending Prescriptions Disp Refills METFORMIN 1,000 MG TABLET 180 tablet 0 Sig: TAKE 1 TABLET BY MOUTH TWICE A DAY ANNABELLE: Yes ALLERGIES Allergen Reactions Codeine Hives, Rash Codeine Sulfate Unknown (home) Last Office Visit Date: 11/26/2020 Last [facility] Health Visit: Visit date not found Future Appointment: 02/25/2021 The patients preferred pharmacy has been captured for this encounter? yes Request is for script(s) to be escript to pharmacy. Marilin Rosales LPN documented in this encounterSt. [facility]04-21-2021 History of Present illness Narrative* Komal Cohn - 11/26/2020 11:43 AM EDT Images from the original note were not included. [facility] [place] Komal Cohn DO [address] [place] [address] Date of Evaluation: 11/26/2020 Patient Name: Mikel Winston : 1945 Subjective Ms. Winston is a 75 year old female who presents for Diabetes, Hypertension, Hyperlipidemia, and RxRefills. The history is provided by the patient. No industrial roofer was used. Hypertension This is a chronic [...] (!) 35.7 C (96.2 F) Ht 5' 4" (1.626 m) Wt 199 lb (90.3 kg) [...] for, and in the presence of, Komal oChn DO November 26, 2020 11:46 AM. I have confirmed and edited as necessary the past medical, family and social histories, HPI, and ROS obtained by others. documented in this encounterSt. [facility]04-20-2021 Miscellaneous Notes* Telephone Encounter - Jade Driscoll Lpn, LPN - 11/25/2020 8:52 AM EDT Pharmacy called [...] pharmacy. Jade Driscoll LPN documented in this encounterSt. [facility]01-18-2020 Hospital Discharge instructions* Instructions* Melanie Padilla [...] Everywhere. * Head Injury: Closed: General Info ([place]) * Rib Contusion ([place]) * Black Eye ([place]) * Incentive Spirometer: General Info ([place]) documented in this encounterSUMMA Work Phone: Evaluation note* Diagnosis Essential hypertension- Primary Unspecified essential hypertension Type 2 diabetes mellitus without complication, without long-term current use of insulin ([facility]) Seasonal allergies Allergic rhinitis, cause unspecified [facility] Diagnosis Type 2 diabetes mellitus without complication, without long-term current use of insulin ([facility])- Primary [facility]* Diagnosis Primary hypertension- Primary Unspecified essential hypertension Type 2 diabetes mellitus without complication, without long-term current use of insulin (HCC) Generalized edema Edema Hypokalemia Hypopotassemia documented [facility] this [facility]* Diagnosis Primary hypertension- Primary Unspecified essential hypertension Hyperlipidemia, mixed Mixed hyperlipidemia Type 2 diabetes mellitus without complication, without long-term current use of insulin (HCC) documented [facility] this [facility]* Diagnosis Type 2 diabetes mellitus without complication, without long-term current use of insulin (HCC)- Primary Congestive heart failure, unspecified HF chronicity, unspecified heart failure type (HCC) Hyperlipidemia, mixed Mixed hyperlipidemia Primary hypertension Unspecified essential hypertension Hypothyroidism, acquired Unspecified hypothyroidism documented [facility] this [facility]* Diagnosis Fall, initial encounter- Primary Closed [...] abnormal blood chemistry documented [facility] this [facility]* Diagnosis Other seasonal allergic rhinitis [facility]* Diagnosis Primary hypertension- Primary Unspecified essential hypertension Mixed hyperlipidemia Statin intolerance Other drug allergy Myalgias [facility] this [facility]* Diagnosis Type 2 diabetes mellitus without complications (HCC) Type II or unspecified type diabetes mellitus without mention of complication, not stated as uncontrolled documented [facility] this [facility]* Diagnosis Altered mental status, unspecified altered mental status type- Primary Urinary tract infection without hematuria, site unspecified Acute cystitis without hematuria Acute cystitis documented in this encounter [facility] Work Phone: Evaluation note* Diagnosis Generalized edema Edema Primary hypertension Unspecified essential hypertension [facility] this [facility]* Diagnosis Anemia, unspecified type- Primary documented [facility] this [facility]* Diagnosis Gastro-esophageal reflux disease with esophagitis, without bleeding Hypokalemia Hypopotassemia Primary hypertension Unspecified essential hypertension documented [facility] this [facility]* Diagnosis Abnormal level of blood mineral Other abnormal blood chemistry documented [facility] this [facility]* Diagnosis Hypokalemia- Primary Hypopotassemia documented in this encounter [facility] note* Diagnosis CKD (chronic kidney disease) stage 1, GFR 90 ml/min or greater- Primary Chronic kidney disease, Stage I documented in this encounter [facility] note* Diagnosis Primary hypertension- Primary Unspecified essential hypertension Hyperlipidemia, mixed Mixed hyperlipidemia Bilateral leg edema Edema Type 2 diabetes mellitus without complication, without long-term current use of insulin ([facility]) documented in this encounter [facility] note* Diagnosis BARRY (acute kidney injury) (HCC)- Primary Acute kidney failure, unspecified documented in this encounter [facility] note* Diagnosis Diabetes ([facility]) Type II or unspecified type diabetes mellitus without mention of complication, not stated as uncontrolled Hypothyroidism, acquired Unspecified hypothyroidism documented in this encounter [facility] note* Diagnosis Gastro-esophageal reflux disease with esophagitis, without bleeding documented in this encounter [facility] note* Diagnosis Primary hypertension- Primary Unspecified essential hypertension Hyperlipidemia, mixed Mixed hyperlipidemia Bilateral leg edema Edema Hypothyroidism, acquired Unspecified hypothyroidism Acute non-recurrent maxillary sinusitis documented in this encounter [facility] note* Diagnosis Abnormal level of blood mineral Other abnormal blood chemistry documented in this encounter [facility] note* Diagnosis Type 2 diabetes mellitus without complication, without long-term current use of insulin ([facility])- Primary documented in this encounter [facility] note* Diagnosis BARRY (acute kidney injury) (CMS/HCC) (HCC)- Primary BARRY (acute kidney injury) (CMS/HCC) (HCC) Cystitis Unspecified cystitis UTI (urinary tract infection) Urinary tract infection, site not specified documented in this encounter [facility] note* Diagnosis Bilateral leg edema Edema Hypokalemia Hypopotassemia 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) Primary hypertension Unspecified essential hypertension documented in this encounter [facility] note* Diagnosis Nonrheumatic aortic valve stenosis documented in this encounter [facility] note* Diagnosis Primary hypertension Unspecified essential hypertension Other seasonal allergic rhinitis 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) Bilateral leg edema Edema Hypokalemia Hypopotassemia documented in this encounter [facility] note* Diagnosis Gastro-esophageal reflux disease with esophagitis, without bleeding Abnormal level of blood mineral Other abnormal blood chemistry documented in this encounter [facility] note* Diagnosis Other specified soft tissue disorders documented in this encounter [facility] note* Diagnosis Urinary frequency- Primary Right leg swelling Swelling of limb Cellulitis of skin Cellulitis and abscess of unspecified site Bilateral leg edema Edema Class 1 obesity with body mass index (BMI) of 33.0 to 33.9 in adult, unspecified obesity type, unspecified whether serious comorbidity present documented in this encounter [facility] note* Diagnosis Bilateral leg edema- Primary Edema Cellulitis of skin Cellulitis and abscess of unspecified site Class 1 obesity with body mass index (BMI) of 33.0 to 33.9 in adult, unspecified obesity type, unspecified whether serious comorbidity present documented in this encounter [facility] note* Diagnosis Nonrheumatic aortic valve stenosis- Primary documented in this encounter [facility] note* Diagnosis Other specified soft tissue disorders- Primary Other specified soft tissue disorders documented in this encounter [facility] note* Diagnosis Bilateral leg edema Edema documented in this encounter [facility] note* Diagnosis 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) documented in this encounter [facility] note* Diagnosis Coronary artery disease involving coronary bypass graft of [place] heart without angina pectoris documented in this encounter [facility] note* Diagnosis Dysuria- Primary Acute UTI Urinary tract infection, site not specified Chronic kidney disease, stage 3b (HCC) Bilateral leg edema Edema Other depression documented in this encounter [facility] note* Diagnosis Chronic kidney disease, stage 4 (severe) (HCC) documented in this encounter [facility] note* Diagnosis Cellulitis of right lower extremity- Primary Cellulitis of right lower extremity Acute cystitis without hematuria documented in this encounter [facility] note* Diagnosis Primary hypertension- Primary Unspecified essential hypertension Cellulitis of right lower extremity Cellulitis and abscess of leg, except foot Acute cystitis without hematuria Acute cystitis Class 1 obesity with body mass index (BMI) of 34.0 to 34.9 in adult, unspecified obesity type, unspecified whether serious comorbidity present documented in this encounter [facility] note* Diagnosis Nonrheumatic aortic valve stenosis- Primary Coronary artery disease involving coronary bypass graft of [place] heart without angina pectoris documented in this encounter [facility] note* Diagnosis Cellulitis of left lower leg- Primary Cellulitis and abscess of leg, except foot documented in this encounter [facility] note* Diagnosis Nonrheumatic aortic valve stenosis- Primary Acute renal failure superimposed on stage 4 chronic kidney disease, unspecified acute renal failure type (HCC) documented in this encounter [facility] note* Diagnosis Osteoarthritis, unspecified osteoarthritis type, unspecified site- Primary documented in this encounter [facility] note* Diagnosis Other depression Cellulitis of left lower leg Cellulitis and abscess of leg, except foot documented in this encounter [facility] note* Diagnosis Chronic kidney disease, stage 4 (severe) (HCC)- Primary Chronic kidney disease, stage 4 (severe) (HCC) documented in this encounter [facility] note* Diagnosis Coronary artery disease involving coronary bypass graft of [place] heart without angina pectoris Nonrheumatic aortic valve stenosis documented in this encounter [facility] note* Diagnosis Chronic kidney disease, stage 4 (severe) (HCC) documented in this encounter [facility] note* Diagnosis Primary hypertension- Primary Unspecified essential hypertension Type 2 diabetes mellitus with stage 4 chronic kidney disease, without long-term current use of insulin ([facility]) CKD (chronic kidney disease) stage 4, GFR 15-29 ml/min ([facility]) Chronic kidney disease, Stage IV (severe) Cellulitis of left lower leg Cellulitis and abscess of leg, except foot Class 1 obesity with body mass index (BMI) of 33.0 to 33.9 in adult, unspecified obesity type, unspecified whether serious comorbidity present Bilateral leg edema Edema Systolic murmur Undiagnosed cardiac murmurs Other depression documented in this encounter [facility] note* Diagnosis BARRY (acute kidney injury) (HCC)- Primary Encounter for adjustment or management of cardiac device documented in this encounter [facility] note* Diagnosis Symptomatic sinus bradycardia- Primary Symptomatic sinus bradycardia Elevated troponin Other abnormal blood chemistry Elevated brain natriuretic peptide (BNP) level Second degree AV block Other second degree atrioventricular block Symptomatic sinus bradycardia Encounter for adjustment or management of cardiac device documented in this encounter [facility] note* Diagnosis Primary hypertension- Primary Unspecified essential hypertension Systolic murmur Undiagnosed cardiac murmurs Symptomatic sinus bradycardia Other specified cardiac dysrhythmias CKD (chronic kidney disease) stage 4, GFR 15-29 ml/min ([facility]) Chronic kidney disease, Stage IV (severe) Class 1 obesity with body mass index (BMI) of 32.0 to 32.9 in adult, unspecified obesity type, unspecified whether serious comorbidity present documented in this encounter [facility] note* Diagnosis Acute cystitis with hematuria- Primary Altered mental status, unspecified altered mental status type Acute cystitis with hematuria Encounter for adjustment or management of cardiac device documented in this encounter [facility] note* Diagnosis Chronic kidney disease, stage 4 (severe) (HCC)- Primary Chronic kidney disease, stage 4 (severe) (HCC) Chronic kidney disease, stage 4 (severe) (HCC) Encounter for adjustment or management of cardiac device [facility] Diagnosis Nonrheumatic aortic valve stenosis- Primary [facility]* Diagnosis Coronary artery disease involving coronary bypass graft of [place] heart without angina pectoris Essential hypertension Unspecified essential hypertension Encounter for adjustment or management of cardiac device documented in this encounter [facility] noteNo assessment information availableWACMC [facility] Work Phone: Evaluation note* Diagnosis Second degree heart block- Primary Other second degree atrioventricular block Essential hypertension Unspecified essential hypertension Cardiac pacemaker in situ Encounter for adjustment or management of cardiac device documented in this encounter [facility] note* Diagnosis Essential hypertension- Primary Unspecified essential hypertension Second degree heart block Other second degree atrioventricular block Encounter for adjustment or management of cardiac device documented in this encounter [facility] for referral (narrative)* Diagnostic Procedure Only (Routine) - Pending Review Specialty Diagnoses / Procedures Referred By Jen islas Referred To Contact US IMAGING Diagnoses BARRY (acute kidney injury) (HCC) Procedures US KIDNEY/BLADDER US RETROPERITONEAL REAL TIME W/IMAGE Komal Cuenca DO [address] [place] [address] Us Imaging Referral ID Status Reason Start Date Expiration Date Visits Requested Visits Authorized [id number] Pending Review Auto-Generat ed Referral 05/03/2022 06/02/2023 1 1 [facility] for referral (narrative)* Diagnostic Procedure Only (Urgent) - Authorized Specialty Diagnoses / Procedures Referred By Jen islas Referred To Contact US IMAGING Diagnoses Right leg swelling Procedures US DVT LOWER RIGHT DUP-SCAN XTR VEINS UNILATERAL/LIMITED STUDY LalitKomalrodríguez [place] [address] Us Imaging Referral ID Status Reason Start Date Expiration Date Visits Requested Visits Authorized [id number] Authorized Auto-Generat ed Referral 03/07/2023 04/05/2024 1 1 [facility] for referral (narrative)* Diagnostic Procedure Only (Routine) - Pending Review Specialty Diagnoses / Procedures Referred By Contac t Referred To Contact US IMAGING Diagnoses CKD (chronic kidney disease) stage 4, GFR 15-29 ml/min (HCC) Procedures US KIDNEY/BLADDER US RETROPERITONEAL REAL TIME W/IMAGE [place] [address] Us Imaging [place] [id number] Referral ID Status Reason Start Date Expiration Date Visits Requested Visits Authorized [id number] Pending Review Auto-Generat ed Referral 01/06/2024 02/04/2025 1 1 * Consult, Test, Treat (Routine) - Authorized Specialty Diagnoses / Procedures Referred By Contac t Referred To Contact Nephrology Diagnoses CKD (chronic kidney disease) stage 4, GFR 15-29 ml/min (HCC) Procedures CONSULT TO NEPHROLOGY OFFICE/OUTPATIENT [facility] 60 MINUTES Komal Cohn, [place] [address] Referral ID Status Reason Start Date Expiration Date Visits Requested Visits Authorized [id number] Authorized PCP Requested Referral 01/06/2024 01/05/2025 1 1 * Consult, Test, Treat (Routine) - Authorized Specialty Diagnoses / Procedures Referred By Contac t Referred To Contact Ophthalmology Diagnoses Screening for diabetic retinopathy Procedures CONSULT TO OPHTHALMOLOGY OFFICE/OUTPATIENT [facility] 60 MINUTES Komal Cohn, DO [address] [place] [address] Referral ID Status Reason Start Date Expiration Date Visits Requested Visits Authorized [id number] Authorized PCP Requested Referral 01/06/2024 01/05/2025 1 1 [facility]No reason for referral information availableWACMC [facility] Work Phone: Assessments Diagnosis Acute embolism and thrombosis of other specified deep vein of right lower extremity (HCC) Diagnosis Bilateral leg edema- Primary Edema Diagnosis Gastro-esophageal reflux disease with esophagitis, without bleeding Advance Directives Documents on File Type Date Recorded Patient Hog Operator Expl anation ACP-Advance Directive ACP-Power of Slate Mixer Latest Code Status on File Code Status Date Activated Date Inactivated Comments Full Code 12/27/2017 3:56 PM 12/30/2017 2:31 PM Full Code 12/27/2017 8:17 AM 12/27/2017 3:56 PM Full Code 12/26/2017 1:59 PM 12/27/2017 8:17 AM Documents on File Type Date Recorded Patient Hog Operator Expl anation Advance Directives and Living Will Power of Slate Mixer Latest Code Status on File Code Status Date Activated Date Inactivated Comments Full Code 12/13/2021 6:07 PM Full Code 12/27/2017 3:56 PM 12/30/2017 2:31 PM Healthcare Agents on File Name Relationship Healthcare Agent Relationshi p Communication costa Ravindra Child Primary Decision Maker Latest Code Status on [...] type (HCC) Procedures CONSULT TO CARDIOLOGY OFFICE/OUTPATIENT [facility] 60-74 MINUTES Komal Cohn Maryan, [address] [place] [id number] Referral ID Status Reason Start Date Expiration Date Visits Requested Visits Authorized [id number] Pending Review PCP Requested Referral 09/03/2021 09/03/2022 1 1 Specialty Diagnoses / Procedures Referred By Contac t Referred To Contact Cardiology Diagnoses Nonrheumatic aortic valve stenosis Procedures Transthoracic echocardiogram (TTE) complete with contrast, bubble, strain, and 3D PRN MT ECHO TTHRC R-T 2D W/WOM-MODE COMPL SPEC&COLR D MT TTE W OR WO FOL WCON,DOPPLER Charley Parker, 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 [address] [facility], [address] [place] [address] Referral ID Status Reason Start Date Expiration Date V isits Requested Visits Authorized [id number] Closed Perform Procedure 10/19/2022 01/16/2023 1 1 Specialty Diagnoses / Procedures Referred By Contac t Referred To Contact Cardiology Diagnoses Other specified soft tissue disorders Procedures Vascular US lower extremity venous duplex right Lalit, [place], DO [address] [place] [id number] Referral ID Status Reason Start Date Expiration Date V isits Requested Visits Authorized [id number] Closed Perform Procedure 03/07/2023 09/03/2023 1 1 Specialty Diagnoses / Procedures Referred By Contac t Referred To Contact Terence Gonzalez MD [address] [place] [address] Referral ID Status Reason Start Date Expiration Date V isits Requested Visits Authorized [id number] Pending Review 02/02/2024 07/31/2024 1 1 Specialty Diagnoses / Procedures Referred By Contac t Referred To Contact Cardiology Diagnoses Coronary artery disease involving coronary bypass graft of [place] heart without angina pectoris Nonrheumatic aortic valve stenosis Procedures Transthoracic echocardiogram (TTE) complete with contrast, bubble, strain, and 3D PRN MT ECHO TTHRC R-T 2D W/WOM-MODE COMPL SPEC&COLR D MT TTE W OR WO QUINTON JAMES Roger B, MD [address] [place] [address] Referral ID Status Reason Start Date Expiration Date V isits Requested Visits Authorized [id number] Pending Review 03/14/2024 03/14/2025 1 1 Referral ID Status Reason Start Date Expiration Date Visits Re quested Visits Authorized [id number] Closed 03/15/2024 06/12/2024 1 1 Specialty Diagnoses / Procedures Referred By Jen islas Referred To Contact Cardiology Diagnoses Chronic kidney disease, stage 4 (severe) (FORMERLY [facility]) Procedures Vascular US renal artery duplex complete Le Dobson, 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 [address] [place] [address] Referral ID Status Reason Start Date Expiration Date Visits Re quested Visits Authorized [id number] Closed 04/06/2024 04/06/2025 1 1 Specialty Diagnoses / Procedures Referred By Jen islas Referred To Contact Diagnoses Type 2 diabetes mellitus without complication, without long-term current use of insulin ([facility]) [place] [address] Referral ID Status Reason Start Date Expiration Date Visits Re quested Visits Authorized [id number] Denied 04/27/2024 06/26/2024 1 1 Referral ID Status Reason Start Date Expiration Date Visits Requested Visits Authorized [id number] Pending Review Perform Procedure 09/30/2022 03/29/2023 1 1 Summary Purpose Family History No Family History Records FoundNo Family History Records FoundNo Family History Records FoundNo Family History Records FoundNo Family History Records FoundNo Family History Records Found Chief Complaint and Reason for Visit Chief Complaint Admit Date LAB WORK July 11, 2024 5 :35am SKILLED NURSING LAB WORK July 17 5:00am LABWORK July 18, 2024 5:00am LAB WORK July 19, 2024 5:00am SKILLED NURSING LAB WORK July 20 4 5:00am SKILLED NURSING LAB WORK July 25 4 4:00am SKILLED NURSING LAB WORK August 02 4 4:00am LABWORK August 03, 2024 5:00am SKILLED NURSING LAB WORK August 07 4 5:00am SKILLED NURSING LAB WORK September 25 5 4:00am SKILLED NURSING LAB WORK October 05 5:00am SKILLED NURSING LAB WORK October 15, 2024 5 :00am Chief Complaint Admit Date SKILLED NURSING LAB WORK July 17 4 5:00am LABWORK July 18, 2024 5:00am LAB WORK July 19, 2024 5:00am SKILLED NURSING LAB WORK July 20 5:00am SKILLED NURSING LAB WORK July 25 4:00am SKILLED NURSING LAB WORK August 02 4:00am LABWORK August 03, 2024 5:00am SKILLED NURSING LAB WORK August 07 5:00am SKILLED NURSING LAB WORK September 25 4:00am SKILLED NURSING LAB WORK October 05 5:00am SKILLED NURSING LAB WORK October 15, 2024 5 :00am LABWORK October 26, 2024 5:0 0am Chief Complaint Admit Date SKILLED NURSING LAB WORK August 02 4:00am LABWORK August 03, 2024 5:00am SKILLED NURSING LAB WORK August 07 5:00am SKILLED NURSING LAB WORK September 25 4:00am SKILLED NURSING LAB WORK October 05 5:00am SKILLED NURSING LAB WORK October 15, 2024 5 :00am LABWORK October 26, 2024 5:0 0am SKILLED NURSING LAB WORK November 02, 2024 5 :00am Additional Source Comments Source Comments (unrecognize d section and content) In the event this informatio n is protected by the Federal Confidentiality of Alcohol and Drug Abuse Patient Records regulations: The Federal rules restrict any use of the information to criminally investigate or prosecute any alcohol or drug abuse patient.[facility] the event this information is protected by the Federal Confidentiality of Alcohol and Drug Abuse Patient Records regulations: The Federal rules restrict any use of the information to criminally investigate or prosecute any alcohol or drug abuse patient.[facility]In the event this information is protected by the Federal Confidentiality of Alcohol and Drug Abuse Patient Records regulations: The Federal rules restrict any use of the information to criminally investigate or prosecute any alcohol or drug abuse patient.[facility] HospitalIn the event this information is protected by the Federal Confidentiality of Alcohol and Drug Abuse Patient Records regulations: The Federal rules restrict any use of the information to criminally investigate or prosecute any alcohol or drug abuse patient.[facility] HospitalIn the event this information is protected by the Federal Confidentiality of Alcohol and Drug Abuse Patient Records regulations: The Federal rules restrict any use of the information to criminally investigate or prosecute any alcohol or drug abuse patient.[facility] HospitalIn the event this information is protected by the Federal Confidentiality of Alcohol and Drug Abuse Patient Records regulations: The Federal rules restrict any use of the information to criminally investigate or prosecute any alcohol or drug abuse patient.[facility] HospitalIn the event this information is protected by the Federal Confidentiality of Alcohol and Drug Abuse Patient Records regulations: The Federal rules restrict any use of the information to criminally investigate or prosecute any alcohol or drug abuse patient.[facility] HospitalIn the event this information is protected by the Federal Confidentiality of Alcohol and Drug Abuse Patient Records regulations: The Federal rules restrict any use of the information to criminally investigate or prosecute any alcohol or drug abuse patient.[facility] HospitalIn the event this information is protected by the Federal Confidentiality of Alcohol and Drug Abuse Patient Records regulations: The Federal rules restrict any use of the information to criminally investigate or prosecute any alcohol or drug abuse patient.[facility] HospitalIn the event this information is protected by the Federal Confidentiality of Alcohol and Drug Abuse Patient Records regulations: The Federal rules restrict any use of the information to criminally investigate or prosecute any alcohol or drug abuse patient.[facility] HospitalIn the event this information is protected by the Federal Confidentiality of Alcohol and Drug Abuse Patient Records regulations: The Federal rules restrict any use of the information to criminally investigate or prosecute any alcohol or drug abuse patient.[facility] HospitalIn the event this information is protected by the Federal Confidentiality of Alcohol and Drug Abuse Patient Records regulations: The Federal rules restrict any use of the information to criminally investigate or prosecute any alcohol or drug abuse patient.[facility] HospitalIn the event this information is protected by the Federal Confidentiality of Alcohol and Drug Abuse Patient Records regulations: The Federal rules restrict any use of the information to criminally investigate or prosecute any alcohol or drug abuse patient.[facility] HospitalIn the event this information is protected by the Federal Confidentiality of Alcohol and Drug Abuse Patient Records regulations: The Federal rules restrict any use of the information to criminally investigate or prosecute any alcohol or drug abuse patient.[facility] HospitalIn the event this information is protected by the Federal Confidentiality of Alcohol and Drug Abuse Patient Records regulations: The Federal rules restrict any use of the information to criminally investigate or prosecute any alcohol or drug abuse patient.[facility] HospitalIn the event this information is protected by the Federal Confidentiality of Alcohol and Drug Abuse Patient Records regulations: The Federal rules restrict any use of the information to criminally investigate or prosecute any alcohol or drug abuse patient.[facility] HospitalIn the event this information is protected by the Federal Confidentiality of Alcohol and Drug Abuse Patient Records regulations: The Federal rules restrict any use of the information to criminally investigate or prosecute any alcohol or drug abuse patient.[facility] HospitalIn the event this information is protected by the Federal Confidentiality of Alcohol and Drug Abuse Patient Records regulations: The Federal rules restrict any use of the information to criminally investigate or prosecute any alcohol or drug abuse patient.[facility] HospitalIn the event this information is protected by the Federal Confidentiality of Alcohol and Drug Abuse Patient Records regulations: The Federal rules restrict any use of the information to criminally investigate or prosecute any alcohol or drug abuse patient.[facility] HospitalIn the event this information is protected by the Federal Confidentiality of Alcohol and Drug Abuse Patient Records regulations: The Federal rules restrict any use of the information to criminally investigate or prosecute any alcohol or drug abuse patient.[facility] HospitalIn the event this information is protected by the Federal Confidentiality of Alcohol and Drug Abuse Patient Records regulations: The Federal rules restrict any use of the information to criminally investigate or prosecute any alcohol or drug abuse patient.[facility] HospitalIn the event this information is protected by the Federal Confidentiality of Alcohol and Drug Abuse Patient Records regulations: The Federal rules restrict any use of the information to criminally investigate or prosecute any alcohol or drug abuse patient.[facility] HospitalIn the event this information is protected by the Federal Confidentiality of Alcohol and Drug Abuse Patient Records regulations: The Federal rules restrict any use of the information to criminally investigate or prosecute any alcohol or drug abuse patient.[facility] HospitalIn the event this information is protected by the Federal Confidentiality of Alcohol and Drug Abuse Patient Records regulations: The Federal rules restrict any use of the information to criminally investigate or prosecute any alcohol or drug abuse patient.[facility] HospitalIn the event this information is protected by the Federal Confidentiality of Alcohol and Drug Abuse Patient Records regulations: The Federal rules restrict any use of the information to criminally investigate or prosecute any alcohol or drug abuse patient.[facility] HospitalIn the event this information is protected by the Federal Confidentiality of Alcohol and Drug Abuse Patient Records regulations: The Federal rules restrict any use of the information to criminally investigate or prosecute any alcohol or drug abuse patient.[facility] HospitalIn the event this information is protected by the Federal Confidentiality of Alcohol and Drug Abuse Patient Records regulations: The Federal rules restrict any use of the information to criminally investigate or prosecute any alcohol or drug abuse patient.[facility] HospitalIn the event this information is protected by the Federal Confidentiality of Alcohol and Drug Abuse Patient Records regulations: The Federal rules restrict any use of the information to criminally investigate or prosecute any alcohol or drug abuse patient.[facility] HospitalIn the event this information is protected by the Federal Confidentiality of Alcohol and Drug Abuse Patient Records regulations: The Federal rules restrict any use of the information to criminally investigate or prosecute any alcohol or drug abuse patient.[facility] HospitalIn the event this information is protected by the Federal Confidentiality of Alcohol and Drug Abuse Patient Records regulations: The Federal rules restrict any use of the information to criminally investigate or prosecute any alcohol or drug abuse patient.[facility] HospitalIn the event this information is protected by the Federal Confidentiality of Alcohol and Drug Abuse Patient Records regulations: The Federal rules restrict any use of the information to criminally investigate or prosecute any alcohol or drug abuse patient.[facility] HospitalIn the event this information is protected by the Federal Confidentiality of Alcohol and Drug Abuse Patient Records regulations: The Federal rules restrict any use of the information to criminally investigate or prosecute any alcohol or drug abuse patient.[facility] HospitalIn the event this information is protected by the Federal Confidentiality of Alcohol and Drug Abuse Patient Records regulations: The Federal rules restrict any use of the information to criminally investigate or prosecute any alcohol or drug abuse patient.[facility] HospitalIn the event this information is protected by the Federal Confidentiality of Alcohol and Drug Abuse Patient Records regulations: The Federal rules restrict any use of the information to criminally investigate or prosecute any alcohol or drug abuse patient.[facility] HospitalIn the event this information is protected by the Federal Confidentiality of Alcohol and Drug Abuse Patient Records regulations: The Federal rules restrict any use of the information to criminally investigate or prosecute any alcohol or drug abuse patient.[facility] HospitalIn the event this information is protected by the Federal Confidentiality of Alcohol and Drug Abuse Patient Records regulations: The Federal rules restrict any use of the information to criminally investigate or prosecute any alcohol or drug abuse patient.[facility] HospitalIn the event this information is protected by the Federal Confidentiality of Alcohol and Drug Abuse Patient Records regulations: The Federal rules restrict any use of the information to criminally investigate or prosecute any alcohol or drug abuse patient.[facility] HospitalIn the event this information is protected by the Federal Confidentiality of Alcohol and Drug Abuse Patient Records regulations: The Federal rules restrict any use of the information to criminally investigate or prosecute any alcohol or drug abuse patient.[facility] HospitalIn the event this information is protected by the Federal Confidentiality of Alcohol and Drug Abuse Patient Records regulations: The Federal rules restrict any use of the information to criminally investigate or prosecute any alcohol or drug abuse patient.[facility] HospitalIn the event this information is protected by the Federal Confidentiality of Alcohol and Drug Abuse Patient Records regulations: The Federal rules restrict any use of the information to criminally investigate or prosecute any alcohol or drug abuse patient.[facility] HospitalIn the event this information is protected by the Federal Confidentiality of Alcohol and Drug Abuse Patient Records regulations: The Federal rules restrict any use of the information to criminally investigate or prosecute any alcohol or drug abuse patient.[facility] HospitalIn the event this information is protected by the Federal Confidentiality of Alcohol and Drug Abuse Patient Records regulations: The Federal rules restrict any use of the information to criminally investigate or prosecute any alcohol or drug abuse patient.[facility] HospitalIn the event this information is protected by the Federal Confidentiality of Alcohol and Drug Abuse Patient Records regulations: The Federal rules restrict any use of the information to criminally investigate or prosecute any alcohol or drug abuse patient.[facility] HospitalIn the event this information is protected by the Federal Confidentiality of Alcohol and Drug Abuse Patient Records regulations: The Federal rules restrict any use of the information to criminally investigate or prosecute any alcohol or drug abuse patient.[facility] HospitalIn the event this information is protected by the Federal Confidentiality of Alcohol and Drug Abuse Patient Records regulations: The Federal rules restrict any use of the information to criminally investigate or prosecute any alcohol or drug abuse patient.[facility] HospitalIn the event this information is protected by the Federal Confidentiality of Alcohol and Drug Abuse Patient Records regulations: The Federal rules restrict any use of the information to criminally investigate or prosecute any alcohol or drug abuse patient.[facility] HospitalIn the event this information is protected by the Federal Confidentiality of Alcohol and Drug Abuse Patient Records regulations: The Federal rules restrict any use of the information to criminally investigate or prosecute any alcohol or drug abuse patient.[facility] HospitalIn the event this information is protected by the Federal Confidentiality of Alcohol and Drug Abuse Patient Records regulations: The Federal rules restrict any use of the information to criminally investigate or prosecute any alcohol or drug abuse patient.[facility] HospitalIn the event this information is protected by the Federal Confidentiality of Alcohol and Drug Abuse Patient Records regulations: The Federal rules restrict any use of the information to criminally investigate or prosecute any alcohol or drug abuse patient.[facility] HospitalIn the event this information is protected by the Federal Confidentiality of Alcohol and Drug Abuse Patient Records regulations: The Federal rules restrict any use of the information to criminally investigate or prosecute any alcohol or drug abuse patient.[facility] HospitalIn the event this information is protected by the Federal Confidentiality of Alcohol and Drug Abuse Patient Records regulations: The Federal rules restrict any use of the information to criminally investigate or prosecute any alcohol or drug abuse patient.[facility] HospitalIn the event this information is protected by the Federal Confidentiality of Alcohol and Drug Abuse Patient Records regulations: The Federal rules restrict any use of the information to criminally investigate or prosecute any alcohol or drug abuse patient.[facility] HospitalIn the event this information is protected by the Federal Confidentiality of Alcohol and Drug Abuse Patient Records regulations: The Federal rules restrict any use of the information to criminally investigate or prosecute any alcohol or drug abuse patient.[facility] HospitalIn the event this information is protected by the Federal Confidentiality of Alcohol and Drug Abuse Patient Records regulations: The Federal rules restrict any use of the information to criminally investigate or prosecute any alcohol or drug abuse patient.[facility] HospitalIn the event this information is protected by the Federal Confidentiality of Alcohol and Drug Abuse Patient Records regulations: The Federal rules restrict any use of the information to criminally investigate or prosecute any alcohol or drug abuse patient.[facility] HospitalIn the event this information is protected by the Federal Confidentiality of Alcohol and Drug Abuse Patient Records regulations: The Federal rules restrict any use of the information to criminally investigate or prosecute any alcohol or drug abuse patient.[facility] HospitalIn the event this information is protected by the Federal Confidentiality of Alcohol and Drug Abuse Patient Records regulations: The Federal rules restrict any use of the information to criminally investigate or prosecute any alcohol or drug abuse patient.[facility] HospitalIn the event this information is protected by the Federal Confidentiality of Alcohol and Drug Abuse Patient Records regulations: The Federal rules restrict any use of the information to criminally investigate or prosecute any alcohol or drug abuse patient.[facility] HospitalIn the event this information is protected by the Federal Confidentiality of Alcohol and Drug Abuse Patient Records regulations: The Federal rules restrict any use of the information to criminally investigate or prosecute any alcohol or drug abuse patient.[facility] HospitalIn the event this information is protected by the Federal Confidentiality of Alcohol and Drug Abuse Patient Records regulations: The Federal rules restrict any use of the information to criminally investigate or prosecute any alcohol or drug abuse patient.[facility] HospitalIn the event this information is protected by the Federal Confidentiality of Alcohol and Drug Abuse Patient Records regulations: The Federal rules restrict any use of the information to criminally investigate or prosecute any alcohol or drug abuse patient.[facility] HospitalIn the event this information is protected by the Federal Confidentiality of Alcohol and Drug Abuse Patient Records regulations: The Federal rules restrict any use of the information to criminally investigate or prosecute any alcohol or drug abuse patient.[facility] HospitalIn the event this information is protected by the Federal Confidentiality of Alcohol and Drug Abuse Patient Records regulations: The Federal rules restrict any use of the information to criminally investigate or prosecute any alcohol or drug abuse patient.[facility] HospitalIn the event this information is protected by the Federal Confidentiality of Alcohol and Drug Abuse Patient Records regulations: The Federal rules restrict any use of the information to criminally investigate or prosecute any alcohol or drug abuse patient.[facility] HospitalIn the event this information is protected by the Federal Confidentiality of Alcohol and Drug Abuse Patient Records regulations: The Federal rules restrict any use of the information to criminally investigate or prosecute any alcohol or drug abuse patient.[facility] HospitalIn the event this information is protected by the Federal Confidentiality of Alcohol and Drug Abuse Patient Records regulations: The Federal rules restrict any use of the information to criminally investigate or prosecute any alcohol or drug abuse patient.[facility] HospitalIn the event this information is protected by the Federal Confidentiality of Alcohol and Drug Abuse Patient Records regulations: The Federal rules restrict any use of the information to criminally investigate or prosecute any alcohol or drug abuse patient.[facility] HospitalIn the event this information is protected by the Federal Confidentiality of Alcohol and Drug Abuse Patient Records regulations: The Federal rules restrict any use of the information to criminally investigate or prosecute any alcohol or drug abuse patient.[facility] HospitalIn the event this information is protected by the Federal Confidentiality of Alcohol and Drug Abuse Patient Records regulations: The Federal rules restrict any use of the information to criminally investigate or prosecute any alcohol or drug abuse patient.[facility] HospitalIn the event this information is protected by the Federal Confidentiality of Alcohol and Drug Abuse Patient Records regulations: The Federal rules restrict any use of the information to criminally investigate or prosecute any alcohol or drug abuse patient.[facility] HospitalIn the event this information is protected by the Federal Confidentiality of Alcohol and Drug Abuse Patient Records regulations: The Federal rules restrict any use of the information to criminally investigate or prosecute any alcohol or drug abuse patient.[facility] HospitalIn the event this information is protected by the Federal Confidentiality of Alcohol and Drug Abuse Patient Records regulations: The Federal rules restrict any use of the information to criminally investigate or prosecute any alcohol or drug abuse patient.[facility] HospitalIn the event this information is protected by the Federal Confidentiality of Alcohol and Drug Abuse Patient Records regulations: The Federal rules restrict any use of the information to criminally investigate or prosecute any alcohol or drug abuse patient.[facility] HospitalIn the event this information is protected by the Federal Confidentiality of Alcohol and Drug Abuse Patient Records regulations: The Federal rules restrict any use of the information to criminally investigate or prosecute any alcohol or drug abuse patient.[facility] HospitalIn the event this information is protected by the Federal Confidentiality of Alcohol and Drug Abuse Patient Records regulations: The Federal rules restrict any use of the information to criminally investigate or prosecute any alcohol or drug abuse patient.[facility] HospitalIn the event this information is protected by the Federal Confidentiality of Alcohol and Drug Abuse Patient Records regulations: The Federal rules restrict any use of the information to criminally investigate or prosecute any alcohol or drug abuse patient.[facility] Hospital[facility] the event this information is protected by the Federal Confidentiality of Alcohol and Drug Abuse Patient Records regulations: The Federal rules restrict any use of the information to criminally investigate or prosecute any alcohol or drug abuse patient.[facility] Hospital[facility] the event this information is protected by the Federal Confidentiality of Alcohol and Drug Abuse Patient Records regulations: The Federal rules restrict any use of the information to criminally investigate or prosecute any alcohol or drug abuse patient.[facility] HospitalIn the event this information is protected by the Federal Confidentiality of Alcohol and Drug Abuse Patient Records regulations: The Federal rules restrict any use of the information to criminally investigate or prosecute any alcohol or drug abuse patient.[facility] HospitalIn the event this information is protected by the Federal Confidentiality of Alcohol and Drug Abuse Patient Records regulations: The Federal rules restrict any use of the information to criminally investigate or prosecute any alcohol or drug abuse patient.[facility] Reason for Visit (unrecogniz ed section [...] tract infection) Cystitis BARRY (acute kidney injury) ([facility]) ([facility]) Procedures . Pola Henderson MD [address] [place] [address] [facility] [address] [place] [address] Referral ID Status Reason Start Date Expiration Date Visits Re quested Visits Authorized [id number] 1 1 Specialty Diagnoses / Procedures Referred By Contac t Referred To Contact Diagnoses Nonrheumatic aortic (valve) stenosis Procedures MT ECHO TTHRC R-T 2D W/WOM-MODE COMPL SPEC&COLR D [facility] Non-Invasive Cardiology [address] [place] [address] Referral ID Status Reason Start Date Expiration Date Visits Re quested Visits Authorized [id number] 1 1 Reason Onset Date Comments Results 12/09/2022 Echo Reason Comments Appointment Specialty Diagnoses / Procedures Referred By Jen t Referred To Contact Cardiology Diagnoses Other specified soft tissue disorders Procedures Vascular US lower extremity venous duplex right [facility], [address] [place] [address] Referral ID Status Reason Start Date Expiration Date V isits Requested Visits Authorized [id number] Closed Perform Procedure 03/07/2023 09/03/2023 1 1 [...] kidney disease state 4 gfr 15-29 confirm [id number] Reason Comments Consult Consult to ophthalmo logy, screening for diabetic retinopathy confirm [id number] Reason Comments Follow Up 4 week follow up for UTI Diabetes Wound Check Right lower leg dry skin patient wants talk about Lasix Reason Comments Urinary Problem Family called pt toyumiko leon and she seemed "a little off" like she does when she has a UTI. Most recent UTI was a month ago. PT has frequent UTI's Specialty Diagnoses / Procedures Referred By Jen islas Referred To Contact Diagnoses Cellulitis of right lower extremity Acute cystitis without hematuria Procedures . Sukhi Maurer MD [address] [facility] [address] [place] [address] [facility] 4s [address] [place] [address] Referral ID Status Reason Start Date Expiration Date Visits Re quested Visits Authorized [id number] 1 1 Reason Onset Date Comments Transition Of Care 02/08/2024 [facility] to [facility] 02/02/24 Reason Onset Date Comments Transition Of Care 02/15/2024 Discharged fr [facility] to Home Reason Onset Date Comments Transition Of Care 02/15/2024 [facility] 02/13/24 Reason Comments prescription Reason Onset Date Comments Transition Of Care 02/29/2024 Reason Comments Transition Of Care [facility] Reason Onset Date Comments Transition Of Care 03/14/2024 Reason Comments Annual Exam Reason Comments Edema Started swelling and seepingRight leg May - Left leg started on Tues Reason Onset Date Comments Results 03/21/2024 Reason Comments Orders Handicap placard req uested Reason Onset Date Comments Refill Request Medication Question 04/07/2024 Citalopram Specialty Diagnoses / Procedures Referred By Jen islas Referred To Contact Cardiology Diagnoses Coronary artery disease involving coronary bypass graft of [place] heart without angina pectoris Nonrheumatic aortic valve stenosis Procedures Transthoracic echocardiogram (TTE) complete with contrast, bubble, strain, and 3D PRN MT ECHO TTHRC R-T 2D W/WOM-MODE COMPL SPEC&COLR D MT TTE W OR WO FOL WCON,DOPPLER Jose Rojas MD [address] [place] [address] Referral ID Status Reason Start Date Expiration Date Visits Re quested Visits Authorized [id number] Closed 03/15/2024 06/12/2024 1 1 Specialty Diagnoses / Procedures Referred By Jen t Referred To Contact Cardiology Diagnoses Chronic kidney disease, stage 4 (severe) (HCC) Procedures Vascular US renal artery duplex complete Le Dobson, 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 [address] [place] [address] Referral ID Status Reason Start Date Expiration Date Visits Re quested Visits Authorized [id number] Closed 04/06/2024 04/06/2025 1 1 Reason Comments [...] triage. Specialty Diagnoses / Procedures Referred By Jen t Referred To Contact Diagnoses Elevated troponin Elevated brain natriuretic peptide (BNP) level Symptomatic sinus bradycardia Procedures - Matthew Morillo MD [address] [place] [address] Phone: tel: fax: [facility] Cardiac Progressive Care Unit PCU [address]E [address] [place] [address] Phone: tel: Referral ID Status Reason Start Date Expiration Date Visits Re quested Visits Authorized [id number] 1 1 Reason Comments Reason Comments Hospital Discharge 06/01/24 [facility], pace maker placement. Skin Check Skin tag right upper shoulder area Reason Comments Altered Mental Status Complaint of alter ed mental status and weakness that started several days ago. Patient is confused at this time and very tired. Patient is able to be aroused with voice. Patient denies pain at this time Specialty Diagnoses / Procedures Referred By Jen t Referred To Contact Diagnoses Acute cystitis with hematuria Altered mental status, unspecified altered mental status type Procedures [id number] cystitis with hematuria Erinn Santoro MD [address] [place] [address] Phone: tel: fax: [facility] Intensive Care Unit ICU [address] [place] [address] Phone: tel: Referral ID Status Reason Start Date Expiration Date Visits Re quested Visits Authorized [id number] 1 1 Reason Onset Date Comments Transition Of Care 2024 [facility] Reason Comments 6 Month Follow-up Reason Onset Date Comments Transition Of Care 08/03/2024 SNF Update (L jos er Term resident) Reason Onset Date Comments Med Management 10/01/2024 Reason Comments Follow-up Reason Onset Date Comments Results 03/25/2025 Pacemaker Remote Telephone Encounter - Marilin Rosales - 08/29/2020 10:06 AM ESTTelephone Encounter - Bobby, Marilin - 08/29/2020 10:02 AM ESTTelephone Encounter - Bobby, Marilin - 09/04/2020 2:23 PM EST Miscellaneous Notes (unrecog nized section and content) Pharmacy requesting this metformin 1,000 for BID. Chart says once a day and also 500mg every day once a day. Roseanna showed 1,000mg BID. Patient was seen yesterday. [...] Care Teams (unrecognized sec tion and content) Community Support Associate Relationship Specialty Start Date End Date LalitKomal greenberg Maryan, DO [address] [place] [address] PCP - General Family Practice 05/22/18 Community Support Associate Relationship Specialty Start Date End Date Lalit Komal Maryan, DO [address] [place] [address] PCP - General Family Practice 05/22/18 Community Support Associate Relationship Specialty Start Date End Date Lennie Cohnasia Luna, DO [address] [place] [address] PCP - General Family Practice 05/22/18 Community Support Associate Relationship Specialty Start Date End Date Komal Cohn, DO [address] [place] [address] PCP - General Family Practice 05/22/18 Community Support Associate Relationship Specialty Start Date End Date Komal Cohn, DO [address] [place] [address] PCP - General Family Practice 05/22/18 Community Support Associate Relationship Specialty Start Date End Date Komal Cohn DO [address] [place] [address] PCP - General Family Practice 05/22/18 Community Support Associate Relationship Specialty Start Date End Date Komal Cohn, DO [address] [place] [address] PCP - General Family Practice 05/22/18 Community Support Associate Relationship Specialty Start Date End Date Komal Cohn, DO [address] [place] [address] PCP - General Family Practice 05/22/18 Community Support Associate Relationship Specialty Start Date End Date Komal Cohn DO [address] [place] [address] PCP - General 04/16/15 Community Support Associate Relationship Specialty Start Date End Date Komal Cohn, DO [address] [place] [address] PCP - General Family Practice 05/22/18 Community Support Associate Relationship Specialty Start Date End Date Komal Cohn, DO [address] [place] [address] PCP - General Family Practice 05/22/18 Community Support Associate Relationship Specialty Start Date End Date Komal Cohn DO [address] [place] [address] PCP - General Family Practice 05/22/18 Community Support Associate Relationship Specialty Start Date End Date Komal Cohn DO [address] [place] [address] PCP - General Family Practice 05/22/18 Community Support Associate Relationship Specialty Start Date End Date Komal Cohn DO [address] [place] [address] PCP - General Family Practice 05/22/18 Community Support Associate Relationship Specialty Start Date End Date Komal Cohn, DO [address] [place] [address] PCP - General Family Medicine 05/22/18 Community Support Associate Relationship Specialty Start [place] [address] PCP - General Family Medicine 05/22/18 Community Support Associate Relationship Specialty Start Date [place] [address] PCP - General Family Medicine 05/22/18 Community Support Associate Relationship Specialty Start Date [place] [address] PCP - General Family Medicine 05/22/18 Community Support Associate Relationship Specialty Start Date End Date Komal Cohn [address] [address] PCP - General Family Medicine 05/22/18 Community Support Associate Relationship Specialty Start Date End Date Komal Cohn [address] [address] PCP - General Family Medicine 05/22/18 Community Support Associate Relationship Specialty Start Date End Date Komal Cohn DO [address] [place] [address] PCP - General Family Medicine 05/22/18 Community Support Associate Relationship Specialty Start Date End Date Komal Cohn, DO [address] [place] [address] PCP - General Family Medicine 05/22/18 Community Support Associate Relationship Specialty Start Date End Date Komal Cohn, DO [address] [place] [address] PCP - General Family Medicine 05/22/18 Community Support Associate Relationship Specialty Start Date End Date Komal Cohn, DO [address] [place] [address] PCP - General Family Medicine 05/22/18 Community Support Associate Relationship Specialty Start Date End Date Komal Cohn DO [address] [place] [address] PCP - General Family Medicine 05/22/18 Community Support Associate Relationship Specialty Start Date End Date Komal Conh, DO [address] [place] [address] PCP - General Family Medicine 05/22/18 Community Support Associate Relationship Specialty Start Date End Date Komal Cohn DO [address] [place] [address] PCP - General 02/05/18 Community Support Associate Relationship Specialty Start Date End Date Komal Cohn, DO [address] [place] [address] PCP - General Family Medicine 05/22/18 Community Support Associate Relationship Specialty Start Date End Date Komal Cohn, DO [address] [place] [address] PCP - General 02/05/18 Community Support Associate Relationship Specialty Start Date End Date Komal Cohn DO [address] [place] [address] PCP - General 02/05/18 Community Support Associate Relationship Specialty Start Date End Date Komal Cohn DO [address] [place] [address] PCP - General Family Medicine 05/22/18 Community Support Associate Relationship Specialty Start Date End Date Komal Cohn DO [address] [place] [address] PCP - General Family Medicine 05/22/18 Community Support Associate Relationship Specialty Start Date End Date Komal Cohn DO [address] [place] [address] PCP - General Family Medicine 05/22/18 Community Support Associate Relationship Specialty Start Date End Date Komal Cohn DO [address] [place] [address] PCP - General Family Medicine 05/22/18 Community Support Associate Relationship Specialty Start Date End Date Komal Cohn DO [address] [place] [address] PCP - General 02/05/18 Community Support Associate Relationship Specialty Start Date End Date Komal Cohn DO [address] [place] [address] PCP - General Family Medicine 05/22/18 Community Support Associate Relationship Specialty Start Date End Date Komal Cohn DO [address] [place] [address] PCP - General Family Medicine 05/22/18 Community Support Associate Relationship Specialty Start Date End Date Komal Cohn DO [address] [place] [address] PCP - General Family Medicine 05/22/18 Community Support Associate Relationship Specialty Start Date End Date Komal Cohn DO [address] [place] [address] PCP - General 02/05/18 Community Support Associate Relationship Specialty Start Date End Date Komal Cohn DO [address] [place] [address] PCP - General Family Medicine 05/22/18 Community Support Associate Relationship Specialty Start Date End Date Komal Cohn DO [address] [place] [address] PCP - General Family Medicine 05/22/18 Community Support Associate Relationship Specialty Start Date End Date Komal Cohn DO [address] [place] [address] PCP - General Family Medicine 05/22/18 Community Support Associate Relationship Specialty Start Date End Date Komal Cohn DO [address] [place] [address] PCP - General Family Medicine 05/22/18 Community Support Associate Relationship Specialty Start Date End Date Komal Cohn DO [address] [place] [address] PCP - General Family Medicine 05/22/18 Community Support Associate Relationship Specialty Start Date End Date Komal Cohn DO [address] [place] [address] PCP - General 02/05/18 Community Support Associate Relationship Specialty Start Date End Date Komal Cohn DO [address] [place] [address] PCP - General Family Medicine 05/22/18 Community Support Associate Relationship Specialty Start Date End Date Komal Cohn DO [address] [place] [address] PCP - General Family Medicine 05/22/18 Community Support Associate Relationship Specialty Start Date End Date Komal Cohn DO [address] [place] [address] PCP - General 02/05/18 Community Support Associate Relationship Specialty Start Date End Date Komal Cohn DO [address] [place] [address] PCP - General Family Medicine 05/22/18 Komal Cohn DO [address] [place] [address] Referring Family Medicine 01/10/24 Sue Claudio, will call clerk Multiple Games Dealer 02/08/24 02/08/24 Community Support Associate Relationship Specialty Start Date End Date Komal Cohn DO [address] [place] [address] PCP - General Family Medicine 05/22/18 Komal Cohn DO [address] [place] [address] Referring Family Medicine 01/10/24 Latonya Rosado, will call clerk Multiple [employer] Dealer 02/15/24 Community Support Associate Relationship Specialty Start Date End Date Komal Cohn DO [address] [place] [address] PCP - General Family Medicine 05/22/18 LalitKomal greenbergDO [address] [place] [address] Referring Family Medicine 01/10/24 Latonya Rosado, will call clerk Multiple Games Dealer 02/15/24 Community Support Associate Relationship Specialty Start Date End Date Komal Cohn DO [address] [place] [address] PCP - General Family Medicine 05/22/18 Lalit Komal MaryanDO [address] [place] [address] Referring Family Medicine 01/10/24 Latonya Rosado, will call clerk Multiple Games Dealer 02/15/24 Community Support Associate Relationship Specialty Start Date End Date Komal Cohn DO [address] [place] [address] PCP - General Family Medicine 05/22/18 Lal[address]KomalDO [address] [place] [address] Referring Family Medicine 01/10/24 Latonya Rosado, will call clerk Multiple Games Dealer 02/15/24 Community Support Associate Relationship Specialty Start Date End Date LalitKomal [address] [place] [address] PCP - General 02/05/18 Community Support Associate Relationship Specialty Start Date End Date Lalit Komal Maryan [address] [place] [address] PCP - General Family Medicine 05/22/18 Komal CohnardDO [address] [place] [address] Referring Family Medicine 01/10/24 Community Support Associate Relationship Specialty Start Date End Date Lalit KomalDO [address] [place] [address] PCP - General 02/05/18 Community Support Associate Relationship Specialty Start Date End Date Komal CohnardDO [address] [place] [address] PCP - General Family Medicine 05/22/18 Komal Cohn DO [address] [place] [address] Referring Family Medicine 01/10/24 Community Support Associate Relationship Specialty Start Date End Date Komal CohnardDO [address] [place] [address] PCP - General Family Medicine 05/22/18 Komal Cohn DO [address] [place] [address] Referring Family Medicine 01/10/24 Community Support Associate Relationship Specialty Start Date End Date Komal CohnardDO [address] [place] [address] PCP - General Family Medicine 05/22/18 Komal Cohn MaryanDO [address] [place] [address] Referring Family Medicine 01/10/24 Community Support Associate Relationship Specialty Start Date End Date LalitKomal DO [address] [place] [address] PCP - General 02/05/18 Community Support Associate Relationship Specialty Start Date End Date Lalit KomalDO [address] [place] [address] PCP - General 02/05/18 Community Support Associate Relationship Specialty Start Date End Date Lennie CohnlandDO [address] [place] [address] PCP - General 02/05/18 Community Support Associate Relationship Specialty Start Date End Date Komal Cohn MaryanDO [address] [place] [address] PCP - General Family Medicine 05/22/18 Komal CohnardDO [address] [place] [address] Referring Family Medicine 01/10/24 Community Support Associate Relationship Specialty Start Date End Date Lalit KomalDO [address] [place] [address] PCP - General 02/05/18 Community Support Associate Relationship Specialty Start Date End Date Komal Cohn DO [address] [place] [address] PCP - General 02/05/18 Community Support Associate Relationship Specialty Start Date End Date Komal Cohn DO [address] [place] [address] PCP - General Family Medicine 05/22/18 Komal Cohn DO [address] [place] [address] Referring Family Medicine 01/10/24 Community Support Associate Relationship Specialty Start Date End Date Komal Cohn DO [address] [place] [address] PCP - General 02/05/18 Community Support Associate Relationship Specialty Start Date End Date Komal Cohn DO [address] [place] [address] PCP - General 02/05/18 Community Support Associate Relationship Specialty Start Date End Date Komal Cohn DO [address] [place] [address] PCP - General Family Medicine 05/22/18 Komal Cohn DO [address] [place] [address] Referring Family Medicine 01/10/24 Community Support Associate Relationship Specialty Start Date End Date Komal Cohn DO [address] [place] [address] PCP - General 02/05/18 Community Support Associate Relationship Specialty Start Date End Date Adin Elias, JATIN [address] [place] [address] PCP - General Internal Medicine 08/03/24 Komal Cohn DO [address] [place] [address] Referring Family Medicine 01/10/24 Community Support Associate Relationship Specialty Start Date End Date Komal Cohn DO [address] [place] [address] PCP - General 02/05/18 Team Status: Active [...] Provider Active S tart: November 26, 2024 Community Support Associate Relationship Specialty Start Date End Date Julieth Olmedo DO [address] [place] [address] [place] [address] PCP - General Internal Medicine 01/11/25 Community Support Associate Relationship Specialty Start Date End Date Julieth Olmedo DO [address] [place] [address] [place] [address] PCP - General Internal Medicine 01/11/25 Community Support Associate Relationship Specialty Start Date End Date Julieth Olmedo DO [address] [place] [address] [place] [address] PCP - General Internal Medicine 01/11/25 Ordered [...] Tavarez RN) 0842 (Given - Provider: Clinton Mustafa, JANES) atenolol (TENORMIN) tablet 50 mg 50 mg, Oral, DAILY, First dose on 12/13/21 at 1830, Until Discontinued 0843 (Given - Provider: Yolanda Wahl RN) 0917 (Given - Provider: Cathy Tavarez, JANES) 0842 (Given - Provider: Clinton Mustafa, JANES) citalopram (CELEXA) tablet 20 mg 20 mg, Oral, DAILY, First dose on 12/13/21 at 1830, Until Discontinued 0843 (Given - Provider: Yolanda Wahl RN) 0915 (Given - Provider: Cathy Tavarez RN) 0842 (Given - Provider: Clinton Mustafa, JANES) enoxaparin (LOVENOX) injection 40 mg 40 mg, [...] 40 mg, Oral, DAILY, First dose on Tue12/17/21 at 1615, Until Discontinued 0900 (Automatically Held - Provider: Ariel Soliatrio MD) 0900 (Automatically Held - Provider: Ariel Solitario MD) 0900 (Automatically Held - Provider: Ariel Solitario MD) insulin lispro (HUMALOG) injection vial 0-6 Units 0-6 Units, SubCUTAneous, 3 TIMES DAILY WITH MEALS, First dose on 12/13/21 at 2000, Until Discontinued, Corrective Low Dose [...] RCP)2047 (Given - Provider: Amauri Oh RCP) 08 (Given - Provider: Davion Lackey RCP)184 (Given - Provider: Davion Lackey RCP) 100 (Given - Provider: Guy Dimas DIRECTOR OF FIELD SERVICE)1999 (Due) levothyroxine (SYNTHROID) tablet 50 mcg 50 [...] 50 mg, Oral, DAILY, First dose on Tue12/13/21 at 1830, Until Discontinued 0843 (Given - Provider: Yolanda Wahl RN) 0916 (Given - Provider: Cathy Tavarez RN) 0842 (Given - Provider: Clinton Mustafa RN) metFORMIN (GLUCOPHAGE) tablet 1,000 mg 1,000 mg, Oral, DAILY WITH DINNER, First dose on Tue12/13/21 at 1830, Until Discontinued 1730 (Automatically Held) [...] RN) 0918 (Given - Provider: Cathy Tavarez RN)2122 (Given - Provider: Diaz Hughes RN) 0846 [...] 0842 (Given - Provider: Clinton Mustafa RN) potassium chloride (KLOR-CON M) extended release tablet 10 mEq 10 mEq, Oral, DAILY WITH BREAKFAST, First dose on Tue12/13/21 at 1830, Until Discontinued, Do not crush, [...] (2 times per day), First dose on Tue12/13/21 at 2100, Until Discontinued, For Line Patency: [...] RN)2122 (Given - Provider: Diaz Hughes RN) 0843 (Given - Provider: Clinton Mustafa RN)2099 (Due) ticagrelor (BRILINTA) tablet 90 mg 90 mg, Oral, 2 TIMES DAILY, First dose on 12/13/21 at 2100, Until Discontinued, ANTIPLATELET! 0843 (Given - Provider: Yolanda Wahl RN)2038 (Given - Provider: Maia Romero RN) 0916 (Given - Provider: Cathy Tavarez RN)2122 (Given - Provider: Diaz Hughes RN) 0842 (Given - Provider: Clinton Mustafa RN)2099 (Due) vancomycin (VANCOCIN) 1750 mg in sodium chloride 0.9% 500 mL IVPB 1,750 mg (18.9 mg/kg), IntraVENous, at 333.3 mL/hr, Administer over 90 Minutes, EVERY 24 HOURS, First dose on 12/20/21 at 1400 1553 (New Bag - Provider: Yolanda Wahl RN - Comment: med not available)2014 (Stopped - Provider: Maia Romero RN) 1448 (New Bag - Provider: Cathy Tavarez RN)180 (Stopped - Provider: Cathy Tavarez RN) 144 (Not Given - Provider: Clinton Mustafa RN - Reason: Other - Comment: Per Dr. Mclaughlin. Switching to PO) vitamin D (CHOLECALCIFEROL) capsule 5,000 Units 5,000 Units, Oral, DAILY WITH DINNER, First dose on 12/13/21 at 1830, Until Discontinued 180 (Given - Provider: Yolanda Wahl RN) 170 (Given - Provider: Cathy Tavarez RN) 174 (Given - Provider: Clinton Mustafa RN) vitamin E capsule 800 Units 800 Units, Oral, DAILY, First dose on 12/13/21 at 1830, Until Discontinued 0843 (Given - Provider: Yolanda Wahl, JANES) 0916 (Given - Provider: Cathy Tavarez, RN) 0842 (Given - Provider: Clinton Mustafa RN) PRN Medication Order 12/20/2021 12/21/2021 12/22/2021 0.9 % sodium chloride infusion IntraVENous, at 5-250 mL/hr, PRN, if patient receiving piggyback infusions and maintenance fluids are not ordered OR KVO fluids to protect IV site / prevent frequent line interruptions/ long duration, Starting on Tue12/13/21 at 1807, For piggyback infusion, administer at [...] Rectal, EVERY 6 HOURS PRN, Starting on Tue12/13/21 [...] mL 5-40 mL, IntraVENous, PRN, Starting on Tue12/13/21 at 1807, Until Discontinued, Line Care, After [...] Oral, EVERY 6 HOURS PRN, Starting on 12/13/21 [...] 81 mg, Oral, Daily, First dose on Tue11/18/22 at 1215, Do not crush, chew, or split. 1555 (Given - Provider: Damaris Hernandez RN) 0918 (Given - Provider: Kristen Herman, JANES) atenolol (Tenormin) tablet 50 mg 50 mg, Oral, Daily, First dose on Gerda 11/18/22 at 1215 1555 (Given - Provider: Damaris Hernandez RN) 0914 (Given - Provider: Kristen Herman, RN) cefTRIAXone (Rocephin) 1 g in sodium [...] Use: Prophylaxis-DVT/PE, Indications: Prophylaxis of Venous Thromboembolism 0829 (Given - Provider: Kathya Rosen RN) 0919 (Given - Provider: Kristen Herman, JANES) ferrous sulfate tablet 325 mg 325 mg, [...] 25 mg, Oral, Daily, First dose on Tue11/18/22 at 1215 1215 (Not Given - Provider: [...] Reason: Patient/family refused)2040 (Given - Provider: Alia Causey, JANES) metFORMIN (Glucophage) tablet 500 mg 500 mg, Oral, 2 times daily with meals, First dose on Tue11/18/22 at 1700 1600 (Given - Provider: Damaris Hernandez RN) 0918 (Given - Provider: Kristen Herman, JANES) pantoprazole (ProtoNix) EC tablet 40 mg 40 mg, Oral, Daily before breakfast, First dose on Tue11/19/22 at 0700, Do not crush, chew, or split. 0700 (Given - Provid er: Alia Causey RN) potassium chloride CR (Klor-Con M10) ER tablet 10 mEq 10 mEq, Oral, Daily, First dose on Tue11/18/22 at 1215, Best given with food and plenty of water to minimize gastric irritation. Do not crush or chew. 1555 (Given - Provider: Damaris Hernandez RN) 0913 (Given - Provider: Kristen Herman RN) rosuvastatin (Crestor) tablet 20 mg 20 mg, Oral, Daily, First dose on Tue11/18/22 at 1215 1555 (Given - Provider: Damaris Hernandez RN) 0914 (Given - Provider: Kristen Herman RN) sodium chloride 0.9 % bolus 500 mL (COMPLETED) 500 mL, IntraVENous, at 500 mL/hr, Administer over 1 Hours, Once, On Tue11/17/22 at 2335, For 1 dose 0039 (New Bag - Provider: Cecy Huertas RN)0132 (Stopped - Provider: Lanie Sousa, JANES) Continuous Medication Order 11/17/2022 11/18/2022 11/19/2022 sodium chloride 0.9 % infusion 50 mL/hr, IntraVENous, Continuous, Starting on Tue11/18/22 at 0120 0515 (New Bag - Provider: Do bebo Sousa RN)0800 (Rate/Dose Verify - Provider: Kathya Rosen RN)0830 (Rate/Dose Verify - Provider: Kathya Rosen RN)1208 (Rate/Dose Change - Provider: Damaris Hernandez RN) PRN Medication Order 11/17/2022 11/18/2022 11/19/2022 acetaminophen (Tylenol) suppository 650 mg(Linked Group 1) 650 mg, Rectal, Every 6 hours PRN, mild pain (1-3), fever, For temp greater than 100.4 F (38 C), Starting on Gerda 11/18/22 at 0113, Administer if oral route cannot [...] 0923 (Given - Provider: Keyana Trimble LPN) 09 (Given - Provider: Arlene Raza RN) 0848 (Given - Provider: Keyana Trimble LPN) atenolol (Tenormin) tablet 50 mg 50 mg, Oral, Daily, First dose on 01/28/24 at 1940 0923 (Given - Provider: Keyana Trimble LPN) 09 (Given - Provider: Arlene Raza RN) 0848 (Given - Provider: Keyana Trimble LPN) cefTRIAXone (Rocephin) 1,000 mg in sodium chloride 0.9 % 50 mL IVPB Mini-Bag Plus 1,000 mg, IntraVENous, at 100 mL/hr, Administer over 30 Minutes, Every 24 hours, First dose on Tue01/29/24 at 1700, Mini-Bag Plus bag, Suspected Indication [...] 5,000 Units, Oral, Daily, First dose on Tue01/28/24 at 1945 0924 (Given - Provider: Keyana [...] not met)1700 (Not Given - Provider: Arlene Raaz RN - Reason: Order parameters not met) 0800 (Not Given - Provider: Keyana Trimble LPN - Reason: Order parameters not met)1349 (Given - Provider: Keyana Trimble LPN)1700 (Canceled Entry - Provider: Automatic Discharge Provider - Comment: Automatically canceled at discontinue of medication order) Insulin Lispro (Humalog) injection 0-12 Units(Linked Group 1) 0-12 Units, SubCUTAneous, Nightly, First dose on Tue01/28/24 at 2100, If continuous tube feedings/TPN/NPO, give correction dose based on result, no reduction in dose. If eating or bolus tube feeding: Medium Dose Correction Algorithm Glucose: Dose: LESS than 139 No Insulin 140-199 2 Unit 200-249 4 Units 250-299 6 Units 300-349 8 Units 350-400 10 Units Above 400 12 Units 211 (Given - Provider: Donato Hernandez, JANES) 2005 (Given - Provider: Donato Hernandez, RN) levothyroxine (Synthroid, Levoxyl) tablet 25 mcg 25 mcg, Oral, Daily before breakfast, First dose on Tue01/29/24 at 0600, Tube feeding (TF) interaction, obtain physician order to manage, recommend holding TF for 30 minutes before and after dose. 0518 (Given - Provider: Sammi Myers RN) 0614 (Given - Provider: Donato Hernandez RN) 607 (Given - Provider: Donato Hernandez, JANES) linezolid (Zyvox) tablet 600 mg 600 mg, Oral, Every 12 hours, First dose on 01/31/24 at 1030, Suspected Indication (Select all that apply): Skin and Soft Tissue Infection 1044 (Given - Provider: Keyana Trimble LPN)2110 (Given - Provider: Donato Hernandez RN) 0916 [...] times daily with meals, First dose on Tue01/28/24 at 1940, On hold since Tue01/28/2024 at 1936 until manually unheld 0800 (Dose Auto Held)1700 (Dose Auto Held) 0800 (Dose Auto Held)1700 (Dose Auto Held) 0800 (Dose Auto Held)1711 (Unheld by provider - Provider: Automatic Discharge Provider) mirabegron ER (Myrbetriq) 24 hr tablet 25 mg 25 mg, Oral, Nightly, First dose on 01/28/24 at 2100, Do not crush, chew, or split., On hold since Tue01/29/2024 at 0707 until manually unheld 2100 (Dose Auto Held - Provider: GARCIA Angel CNP) 2100 (Dose Auto Held - Provider: GARCIA Angel CNP) 1711 (Unheld by provider - Provider: Automatic [...] 0614 (Given - Provider: Donato Hernandez RN) 06 (Given - Provider: Donato Hernandez RN) potassium [...] gastric irritation. Do not crush or chew. 09 (Given - Provider: Keyana Trimble LPN) rosuvastatin (Crestor) tablet 20 mg 20 mg, Oral, Daily, First dose on 01/28/24 at 1940 0922 (Given - Provider: Keyana Trimble LPN) 0912 (Given - Provider: Arlene Raza RN) 0848 (Given - Provider: Keyana Trimble LPN) vitamin E capsule 180 mg 180 mg (400 Units), Oral, Daily, First dose on 01/29/24 at 0900 0922 (Given - Provider: Keyana [...] Raza RN) 0413 (Given - Provider: Donato Hernandez RN)1159 (Given - Provider: Keyana Trimble LPN) albuterol [...] ALERT or NPO., Starting on 01/28/24 at 1941, If patient does not respond within 5 [...] Tue05/30/24 at 0900 0821 (Given - Provider: aJde Baptiste RN) 0905 (Given - Provider: Krunal Feng RN) 0900 (Given - Provider: Krunal Feng, RN) enoxaparin (Lovenox) syringe 30 mg 30 [...] 2150 (Given - Provider: Zbigniew Rivera RN) 2105 (Given - Provider: Zbigniew Rivera RN) levothyroxine [...] Baptiste RN) 0905 (Given - Provider: Krunal Feng, JANES) 0900 (Given - Provider: Krunal Feng, JANES) vancomycin IVPB 1000 mg in 200 mL NS (premix) (COMPLETED) 1,000 mg, IntraVENous, at 133.3 mL/hr, Administer over 90 Minutes, Once, On Gerda 05/31/24 at 0830, For 1 dose, Preprocedure, Please send to EP lab premix bag, Suspected Indication (Select all that apply): Surgical Prophylaxis 1355 (New Bag - Provider: Heidi Henry)1525 (Stopped - Provider: Krunal Feng, RN) PRN Medication Order 05/30/2024 05/31/2024 06/01/2024 [...] (See Alternative - Provider: Zbigniew Rivera RN) 906 (See Alternative - Provider: Krunal Feng RN)1916 (See Alternative - Provider: Krunal Feng RN) 512 (See Alternative - Provider: Zbigniew Rivera RN) acetaminophen (Tylenol) tablet 650 mg(Linked Group 2) 650 mg, Oral, Every 6 hours PRN, mild pain (1-3), fever, For temp greater than 100.4 F (38 C), Starting on Tue05/30/24 at 0053, Maximum dose of acetaminophen is 4000 mg from all sources in 24 hours. 2036 (Given - Provider: Zbigniew Rivera RN) 906 (Given - Provider: Krunal Feng RN)1916 (Given - Provider: Krunal Feng RN) 512 (Given - Provider: Zbigniew Rivera RN) aluminum & magnesium hydroxide-simethicone (Mylanta) 200-200-20 MG/5ML oral suspension 20 mL(Linked Group 3) 20 mL, Oral, Every 6 hours PRN, indigestion, heartburn, Starting on Tue05/29/24 at 2353 0002 (See Alternative - Provider: Amanda Irving RN) bupivacaine PF (Marcaine) 0.5 % injection (CANCELED) As needed, Starting on Tue05/31/24 at 1414, Intraprocedure 1414 (Given - Provider: Pravin Poole MD) calcium carbonate (Tums) chewable tablet 1,000 mg(Linked Group 3) 1,000 mg, Oral, Every 6 hours PRN, indigestion, heartburn, Starting on Tue05/29/24 at 2353 0002 (Given - Provider: Amanda Irving RN) dextrose 5 % infusion 100 mL/hr, IntraVENous, [...] low blood sugar, Starting on Tue05/29/24 at 2052, If blood glucose less than 50 mg/dL [...] Cunningham RN) 0846 (Given - Provider: Luanne Ospina, JANES) ferrous sulfate tablet 325 mg 325 mg, Oral, Daily with breakfast, First dose on Tue06/26/24 at 0800 0925 (Given - Provider: Marine Ennis RN) 0902 (Given - Provider: Kelly Cunningham RN) 0846 (Given - Provider: Luanne Ospina, JANES) influenza vaccine A&B surf ant adjuvanted (Fluad) [...] RN)2004 (Given - Provider: Nazia Infante RN) 0902 (Given - Provider: Kelly Cunningham RN)1529 (Given - Provider: Kelly Cunningham RN)2100 (Not [...] Tue06/26/24 at 0900, Substituted for SITagliptin (JANUVIA). 924 (Given - Provider: Marine Ennis RN) 901 (Given - Provider: Kelly Cunningham, JANES) 0846 (Given - Provider: Luanne Ospina, JANES) pantoprazole (ProtoNix) 40 mg in sodium chloride [...] 4 ounces (115mL) of water before administering. 925 (Given - Provider: Marine Ennis RN) 09 (Given - Provider: Kelly Cunningham RN) 0847 (Given - Provider: Luanne Ospina, JANES) rosuvastatin (Crestor) tablet 20 mg 20 mg, Oral, Daily, First dose on Tue06/26/24 at 0900 09 (Given - Provider: Marine Ennis RN) 09 (Given - Provider: Kelly Cunningham, JANES) 0846 [...] Midline or Central Line = 20 mL/lumen 899 (Not Given - Provider: Marine Ennis RN - Reason: IV Fluids Infusing)2151 (Given - Provider: Nazia Infante RN) 902 (Not Given - Provider: Kelly Cunningham RN - Reason: IV Fluids Infusing)2111 (Given - Provider: Sidney Malave RN) 899 (Not Given - Provider: Launne sOpina RN - Reason: Other) PRN Medication Order 07/02/2024 07/03/2024 07/04/2024 acetaminophen (Tylenol) suppository 650 mg(Linked Group 3) 650 mg, Rectal, Every 6 hours PRN, mild pain (1-3), fever, For temp greater than 100.4 F (38 C), Starting on 06/25/24 at 2147, Administer if oral route cannot be used. Maximum dose of acetaminophen is 4000 mg from all sources in 24 hours. 2151 (See Alternative - Provider: Nazia Infante RN) 1837 (See Alternative - Provider: Kelly Cunningham RN) acetaminophen (Tylenol) tablet 650 mg(Linked Group 3) 650 mg, Oral, Every 6 hours PRN, mild pain (1-3), fever, For temp greater than 100.4 F (38 C), Starting on 06/25/24 at 2147, Maximum dose of acetaminophen is 4000 mg from all sources in 24 hours. 2151 (Given - Provider: Nazia Infante RN) 1837 (Given - Provider: Kelly Cunningham RN) dextromethorphan-guaiFENesi n (Mucinex DM) 30-600 MG per 12 hr tablet 1 tablet 1 tablet, Oral, 2 times daily PRN, cough, Starting on 07/01/24 at 0908, Do not crush, chew, or [...] sedation for opioid reversal - MUST notify community relations police lieutenant provider immediately after first dose, may give [...] at 2100 2005 (Given - Provider: Nazia Infante RN) 210 (Given - Provider: Sidney Malave RN) polyethylene glycol (PEG) 3350 (Miralax) packet 17 g 17 g, Oral, Daily PRN, constipation, Starting on 06/25/24 at 2147, 1st line for treatment of constipation - give scheduled if no bowel movement in past 24 hours. sodium chloride (Samoset) 0.65 % nasal spray 1 spray 1 spray, Each Nostril, Every 2 hour PRN, congestion, Starting on 06/30/24 at 0648 0926 (Given - Provider: Marine Ennis RN) sodium chloride 0.9 % infusion 5-250 mL/hr, IntraVENous, PRN, if patient receiving piggyback infusions and maintenance fluids are not ordered OR KVO fluids to protect IV site / prevent frequent line interruptions / long duration, Starting on 06/25/24 at 1726, For piggyback infusion, administer at [...] section and content) DATE CREATED AUTHOR 12/23/2021 [facility] DATE CREATED AUTHOR AUTHOR'S ORGANIZ ATION 12/31/2021 [facility] DATE CREATED AUTHOR AUTHOR'S ORGANIZ ATION 11/10/2022 [facility] DATE CREATED AUTHOR AUTHOR'S ORGANIZ ATION 08/05/2024 [facility] DATE CREATED AUTHOR AUTHOR'S ORGANIZ ATION 04/25/2025 [facility] [employer] [facility] DATE CREATED AUTHOR AUTHOR'S ORGANIZ ATION 04/29/2025 [facility] Goals (unrecognized section and content) Goals may [...] BE BASED ON THE PRIMARY CLINICAL RECORDS. [facility]. provides no warranty or guarantee of the accuracy or completeness of information in this document.
== END ==
LOC: OLS.ACH 04:00
PROVIDERS: Referring Provider Internal Medicine; Visit Provider Internal Medicine
DX: E11.3293 Type 2 diabetes mellitus with mild nonproliferative diabetic retinopathy without macular edema, bilateral (principal)
CPT/HCPCS: 36415; 83036

== ENCOUNTER → 2025-07-16 05:00 | Outpatient (REF) | payer MEDICARE, MEDICAID, SELFPAY ==
--- OUTSIDE RECORDS SUMMARY | 2025-07-16 05:02 | XMS RPT_ITS | CCD ---
Author Organization [facility] Care Team Providers Care Instrument Checker Name Role Phone Komal Cohn Primary Care Provider Komal Cohn DO Primary Care Provid er Komal Cohn DO Unavailable Guido MARRERO, Sue Unavailable Unavailable Ashlee MARRERO, Latonya Unavailable Unavailable Lalit DO, Caputa Primary Care Provider Lalit TSE [place] Primary Care Provider Lalit TSE [place] Primary Care Provider [phone] Adin Elias CNP Primary Care Provider KOMAL COHN Attending Joseph COHN [place] MARYAN Primary Care LENNIE [place] MARYAN Attending Joseph COHN, [place] MARYAN Primary Care UnaLENNIE [place] MARYAN Attending Unavavicenta labanna COHN [place]ARY[place] Primary Care Unavai labanna COHN [place] MARYAN Primary Care UnaLENNIE [place] MARYAN Attending Unavavicenta labanna COHN, [place] MARYAN Primary Care Unalien COHN [place] MARYAN Attending Joseph labanna COHN, [place] MARYAN Primary Care Unalien labLENNIE [place] MARYAN Attending Unavavicenta labanna Olmedo MD, Julieth Attending Provider Unavailable Shara BRUNNER, Julieth Referring Provider Unavailable Shara BRUNNER, Julieth Attending Provider Unavailable Shara BRUNNER, Julieth Attending Provider Unavailable Shara BRUNNER, Julieth Referring Provider Unavailable Deperro DO, Julieth Primary Care Provider DANYELL STRINGER Referring Unavailable [facility] Primary Care Unavailable POOLE, MEET Attending Unavailable DEPERRO, JULIETH Primary Care Unavailable [facility] Primary Care Unavailable DEPERRO, JULIETH Primary Care Unavailable [facility] Primary Care Unavailable DEPERRO, JULIETH Primary Care Unavailable DEPERRO, JULIETH Primary Care Unavailable [facility] Primary Care Unavailable KERI, ERINN Admitting Unavailable [facility], [place] Primary Care Unavailable BONY, WEBER Attending Unavailable Deperro OLS, Julieth Attending Unavailable [...] Deperro OLS, Julieth Attending Unavailable Deperro OLS, Julieht Attending Unavailable Deperro OLS, Julieth Attending Unavailable [...] Codeine Drug Allergy 02-24-2016 Hives, Rash, Unknown [facility] (20 sources) Codeine; Translations: [CODEINE] Drug Allergy 02-24-2016 [facility]: (20 sources) Codeine; Translations: [CODEINE SULFATE] Drug Allergy 06-13-2018 Unknown [facility] Medications Current Medications Medication Drug Class(es) Dates [...] extended release oral tablet (4 sources) Uncompetitive L-lcjmww-C-aspartate Receptor Antagonist, Sigma-1 Agonist Start: 07-01-20 End: [...] as needed. Take 3 tablets by mo [facility] once daily. 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 Take 1 capsule by [facility] four times daily for 7 days. [...] End: 02-02-2024 Start: 12-13-2021 15 g, Oral, CO N, Starting on Tue12/13/21 at 1807, Until [...] 12.5 g, IntraV ENous, PRN, Starting on Seanor 12/13/21 at 1807, Until Discontinued, Low blood [...] raVENous, PRN, Low blood sugar, Starting on Seanor 12/13/21 at 1807 Start infusion following administration [...] Comment on above: TAKE 1 CAPSULE BY [facility] EVERY DAY IN THE MORNING 24 hr mirabegron 25 mg extended release oral tablet (20 sources) beta3-Adrenergic Agonist Start: 3 End: 5 take 1 tablet by mouth once daily mirabegron (MYRBETRIQ) 25 mg Tb24 Indications: Mixed incontinence Take 1 tablet by mouth once daily. 90 tablet 3 01/06/2024 04/27/2024 Discontinued (Course of therapy completed) Comment on above: [facility] Take 25 mg by mouth [...] 06-26-2024 End: 06-26-2024 omega-3 acid ethyl esters (residential) 1200 mg oral capsule (1 source) End: 08-25-2019 take 1 capsule by mouth once daily [place]-3 Fatty Acids (FISH OIL) 1200 MG CAPS [...] daily. TAKE 1 CAPSULE BY [facility] EVERY DAY ondansetron 4 mg disintegrating [...] for pain and pain Start: 02-02-2024 End: 06-27-2024 take 5 mg by mouth once 5 [...] (Definity) injection 1.65 mg polyethylene glycol 3350 15235 mg powder for oral solution (9 sources) [...] Comment on above: TAKE 1 CAPSULE BY [facility] EVERY DAY NEEDED WITH LASIX sodium [...] mouth twice daily. Take 1 tablet by [facility] twice daily. TAKE 1 TABLET BY [facility] TWICE A DAY 200 ml vancomycin 5 mg/ml injection (4 sources) Glycopeptide Antibacterial Start: 05-31-2024 End: 05-31-2024 1,000 mg, IntraVENous, at 133.3 mL/hr, Administer over 90 Minutes, Once, On [facility] 05/31/24 at 0830, For 1 dose, Preprocedure, Please send to EP lab premix bag, Suspected Indication (Select all that apply): Surgical Prophylaxis Start: 01-28-2024 End: 01-28-2024 vancomycin (Vancocin) 1,000 mg in sodium chloride 0.9 % 250 mL IVPB (2 sources) Start: 01-29-2024 End: 01-31-2024 1,000 mg, IntraVENous, at 16 6.7 mL/hr, Administer over 90 Minutes, Every 24 hours, First dose on Seanor 01/29/24 at 1900, ADD[place] bag, Suspected Indication (Select all that apply): [...] Daily, First dose on Tue01/29/24 at 0900 Start: 12-13-2021 take 800 [IU] by [facility] once daily 800 Units, Oral, DAILY, First dose on 12/13/21 at 1830, Until Discontinued Vitamin E, dl, a cetate, (VITAMIN E) 400 unit capsule Take 800 Units by mouth. Active take 1 capsule by mo [facility] once daily alpha tocopherol (Vitamin E) 100 units capsule Take 100 Units by mouth daily. 0 Active Vitamin E, dl, a cetate, (VITAMIN E) 400 unit capsule Take 800 Units by mouth. 0 Active take 2 capsules by [facility] once daily vitamin E 400 UNIT capsule Take 800 Units by mouth daily 0 Active Vitamin E, dl, a cetate, (VITAMIN E) 400 unit capsule Take 800 Units by mouth. 0 Active Comment on above: Take 800 Units by mo [facility]. Zinc (19 sources) End: 05-03-2022 ZINC [...] Onset: 4 Episodic Fluid and electrolyte disorders (7 sources) Hypokalemia; Translations: [Hypokalemia] Onset: 5 Episodic [...] conditions (not mental disorders or infectious disease) (12 sources) Abnormal level of blood mineral; Translations: [...] Test Name Value Interpretation Reference Range Facility Hemoglobin A1con 06-03-2025 HbA1c (Bld) [Mass fraction] 7.2 % High <=5.6 [facility] Comment on above: Order Comment: 211.1 Result Comment: Norm al < 5.7 % Prediabetic 5.7 - 6.4 % Diabetic >or= 6.5 % Please note range changes. Performed By: #### L [id number] #### [facility] [address] [place], [address] Thyroid Stim Hormone (TSH)on 04-24-2025 TSH 2.060 uIU/mL Normal 0.300-4.200 [facility] Comment on above: Order Comment: 211.1 Performed By: #### L [id number] #### [facility] [address] [place], [address] CBC W/Diff, Automatedon 09- Absolute Lymph 1.37 X10 3/uL Normal 0.83-4.51 [facility] Comment on above: Order Comment: 211.1 Performed By: #### L [id number] #### [facility] [address] [place], [address] Absolute Neut 3.5 X10 3/uL Normal 2.0-7.7 [facility] Comment on above: Order Comment: 211.1 Performed By: #### L [id number] #### [facility] [address] [place], [address] Basophils/100 WBC (Bld) 0.9 % Normal 0-1 [facility] Comment on above: Order Comment: 211.1 Performed By: #### L [id number] #### [facility] [address] [place], [address] Eosinophils/100 WBC (Bld) 4.7 % Normal 0-5 [facility] Comment on above: Order Comment: 211.1 Performed By: #### L [id number] #### [facility] [address] [place], [address] Erythrocyte distribution width (RBC) [Ratio] 12.7 % Normal 11.6-14.6 [facility] Comment on above: Order Comment: 211.1 Performed By: #### L [id number] #### [facility] [address] [place], [address] Hematocrit (Bld) [Volume fraction] 36.7 % Low 37-47 [facility] Comment on above: Order Comment: 211.1 Performed By: #### L [id number] #### [facility] [address] [place], [address] Hemoglobin (Bld) [Mass/Vol] 12.4 g/dL Normal 12.0-15.0 [facility] Comment on above: Order Comment: 211.1 Performed By: #### L [id number] #### [facility] [address] [place], [address] IG% 0.300 Normal 0.0-0.9 [facility] Comment on above: Order Comment: .1 Result Comment: IG% - Immature Granulocytes (promyelocytes, myelocytes and metamyelocytes) > 1% indicates that a LEFT SHIFT is Present. Performed By: #### L [id number] #### [facility] [address] [place], [address] Lymphocytes/100 WBC (Bld) 21.5 % Normal 19-41 [facility] Comment on above: Order Comment: .1 Performed By: #### L [id number] #### [facility] [address] [place], [address] MCH (RBC) [Entitic mass] 33.1 pg High 27.0-32.0 [facility] Comment on above: Order Comment: 211.1 Performed By: #### L [id number] #### [facility] [address] [place], [address] MCHC (RBC) [Mass/Vol] 33.8 g/dL Normal 32-36 [facility] Comment on above: Order Comment: .1 Performed By: #### L [id number] #### [facility] [address] [place], [address] MCV (RBC) [Entitic vol] 97.9 fL Normal 81-99 [facility] Comment on above: Order Comment: 211.1 Performed By: #### L [id number] #### [facility] [address] [place], [address] Monocytes/100 WBC (Bld) 17.1 % High 0-10 [facility] Comment on above: Order Comment: 211.1 Performed By: #### L [id number] #### [facility] [address] [place], [address] Neutrophils/100 WBC (Bld) 55.5 % Normal 47-70 [facility] Comment on above: Order Comment: 211.1 Performed By: #### L [id number] #### [facility] [address] [place], [address] Nucleated RBC (Bld) [#/Vol] 0 10*3/uL Normal 0-5 [facility] Comment on above: Order Comment: 211.1 Performed By: #### L [id number] #### [facility] [address] [place], [address] Platelet mean volume (Bld) [Entitic vol] 11.4 fL Normal 6.2-12.0 [facility] Comment on above: Order Comment: 211.1 Performed By: #### L [id number] #### [facility] [address] [place], [address] Platelets (Bld) [#/Vol] 144 10*3/uL Low 150-450 [facility] Comment on above: Order Comment: 211.1 Performed By: #### L [id number] #### [facility] [address] [place], [address] RBC (Bld) [#/Vol] 3.75 10*6/uL Low 4.2-5.4 [facility] Comment on above: Order Comment: 211.1 Performed By: #### L [id number] #### [facility] [address] [place], [address] RDW SD 45.2 fl High 35.1-43.9 [facility] Comment on above: Order Comment: 211.1 Performed By: #### L [id number] #### [facility] [address] [place], [address] WBC (Bld) [#/Vol] 6.4 10*3/uL Normal 4.4-11.0 [facility] Comment on above: Order Comment: 211.1 Performed By: #### L [id number] #### [facility] [address] [place], [address] CBC W/Diff, Automatedon 08-2 -2024 Absolute Lymph 1.44 X10 3/uL Normal 0.83-4.51 [facility] Comment on above: Order Comment: 211.1 Performed By: #### L [id number] #### [facility] [address] [place], [address] Absolute Neut 5.7 X10 3/uL Normal 2.0-7.7 [facility] Comment on above: Order Comment: 211.1 Performed By: #### L [id number] #### [facility] [address] [place], [address] Basophils/100 WBC (Bld) 0.4 % Normal 0-1 [facility] Comment on above: Order Comment: 211.1 Performed By: #### L [id number] #### [facility] [address] [place], [address] Eosinophils/100 WBC (Bld) 3.8 % Normal 0-5 [facility] Comment on above: Order Comment: 211.1 Performed By: #### L [id number] #### [facility] [address] [place], [address] Erythrocyte distribution width (RBC) [Ratio] 13.2 % Normal 11.6-14.6 [facility] Comment on above: Order Comment: 211.1 Performed By: #### L 722.5510 #### [facility] [address] [place], [address] Hematocrit (Bld) [Volume fraction] 34.6 % Low 37-47 [facility] Comment on above: Order Comment: 211.1 Performed By: #### L [id number] #### [facility] [address] [place], [address] Hemoglobin (Bld) [Mass/Vol] 11.5 g/dL Low 12.0-15.0 [facility] Comment on above: Order Comment: 211.1 Performed By: #### L [id number] #### [facility] [address] [place], [address] IG% 0.200 Normal 0.0-0.9 [facility] Comment on above: Order Comment: 211.1 Result Comment: IG% - Immature Granulocytes (promyelocytes, myelocytes and metamyelocytes) > 1% indicates that a LEFT SHIFT is Present. Performed By: #### L 503.5510 #### [facility] [address] [place], [address] Lymphocytes/100 WBC (Bld) 16.1 % Low 19-41 [facility] Comment on above: Order Comment: 211.1 Performed By: #### L [id number] #### [facility] [address] [place], [address] MCH (RBC) [Entitic mass] 33.3 pg High 27.0-32.0 [facility] Comment on above: Order Comment: 211.1 Performed By: #### L [id number] #### [facility] [address] [place], [address] MCHC (RBC) [Mass/Vol] 33.2 g/dL Normal 32-36 [facility] Comment on above: Order Comment: 211.1 Performed By: #### L [id number] #### [facility] [address] [place], [address] MCV (RBC) [Entitic vol] 100.3 fL High 81-99 [facility] Comment on above: Order Comment: 211.1 Performed By: #### L [id number] #### [facility] [address] [place], [address] Monocytes/100 WBC (Bld) 15.7 % High 0-10 [facility] Comment on above: Order Comment: 211.1 Performed By: #### L [id number] #### [facility] [address] [place], [address] Neutrophils/100 WBC (Bld) 63.8 % Normal 47-70 [facility] Comment on above: Order Comment: 211.1 Performed By: #### L [id number] #### [facility] [address] [place], [address] Nucleated RBC (Bld) [#/Vol] 0 10*3/uL Normal 0-5 [facility] Comment on above: Order Comment: 211.1 Performed By: #### L [id number] #### [facility] [address] [place], [address] Platelet mean volume (Bld) [Entitic vol] 12.2 fL High 6.2-12.0 [facility] Comment on above: Order Comment: 211.1 Performed By: #### L [id number] #### [facility] [address] [place], [address] Platelets (Bld) [#/Vol] 108 10*3/uL Low 150-450 [facility] Comment on above: Order Comment: 211.1 Performed By: #### L [id number] #### [facility] [address] [place], [address] RBC (Bld) [#/Vol] 3.45 10*6/uL Low 4.2-5.4 [facility] Comment on above: Order Comment: 211.1 Performed By: #### L [id number] #### [facility] [address] [place], [address] RDW SD 48.6 fl High 35.1-43.9 [facility] Comment on above: Order Comment: 211.1 Performed By: #### L [id number] #### [facility] [address] [place], [address] WBC (Bld) [#/Vol] 9.0 10*3/uL Normal 4.4-11.0 [facility] Comment on above: Order Comment: 211.1 Performed By: #### L [id number] #### [facility] [address] [place], [address] Comprehensive Metabolic Prof il 03-28-2025 Albumin [Mass/Vol] 3.0 g/dL Low 3.4-4.8 [facility] Comment on above: Order Comment: 211.1 Performed By: #### L [id number] #### [facility] [address] [place], [address] Albumin/Globulin [Mass ratio] 0.9 {ratio} Normal 0.9-2.4 [facility] Comment on above: Order Comment: 211.1 Performed By: #### L 503.5510 #### [facility] [address] [place], [address] ALK PHOS 138 U/L High 35-104 [facility] Comment on above: Order Comment: 211.1 Performed By: #### L [id number] #### [facility] [address] [place], [address] ALT [Catalytic activity/Vol] 23 U/L Normal <=34 [facility] Comment on above: Order Comment: 211.1 Performed By: #### L [id number] #### [facility] [address] [place], [address] AST [Catalytic activity/Vol] 42 U/L High <=31 [facility] Comment on above: Order Comment: 211.1 Performed By: #### L 503.5510 #### [facility] [address] [place], [address] Bilirubin [Mass/Vol] 0.91 mg/dL Normal 0.00-1.30 [facility] Comment on above: Order Comment: 211.1 Performed By: #### L 503.5510 #### [facility] [address] [place], [address] BUN/CRE 18.6 RATIO Normal 10-20 [facility] Comment on above: Order Comment: 211.1 Performed By: #### L [id number] #### [facility] [address] [place], [address] Calcium [Mass/Vol] 9.9 mg/dL Normal 7.6-11.0 [facility] Comment on above: Order Comment: 211.1 Performed By: #### L 503.5510 #### [facility] [address] [place], [address] Chloride [Moles/Vol] 104 mmol/L Normal 98-108 [facility] Comment on above: Order Comment: 211.1 Performed By: #### L [id number] #### [facility] [address] [place], [address] CO2 [Moles/Vol] 26.6 mmol/L Normal 21.0-32.0 [facility] Comment on above: Order Comment: 211.1 Performed By: #### L [id number] #### [facility] [address] [place], [address] Creatinine [Mass/Vol] 1.53 mg/dL High 0.70-1.20 [facility] Comment on above: Order Comment: 211.1 Performed By: #### L [id number] #### [facility] [address] [place], [address] GAP 10 Normal 5-15 [facility] Comment on above: Order Comment: 211.1 Performed By: #### L 503.5510 #### [facility] [address] [place], [address] GFR/1.73 sq M.predicted among non-blacks MDRD (S/P/Bld) [Vol rate/Area] 34 mL/min/{1.73_m2} Low >60 [facility] Comment on above: Order Comment: .1 Result Comment: mL/m in/1.73m2 CKD-EPI Creatinine Equation (2020) Performed By: #### L 503.5510 #### [facility] [address] [place], [address] Globulin (S) [Mass/Vol] 3.2 g/dL Normal 2.2-4.2 [facility] Comment on above: Order Comment: 211.1 Performed By: #### L [id number] #### [facility] [address] [place], [address] Glucose [Mass/Vol] 157 mg/dL High 70-99 [facility] Comment on above: Order Comment: 211.1 Performed By: #### L [id number] #### [facility] [address] [place], [address] Potassium [Moles/Vol] 3.8 mmol/L Normal 3.3-5.1 [facility] Comment on above: Order Comment: 211.1 Performed By: #### L [id number] #### [facility] [address] [place], [address] Sodium [Moles/Vol] 140 mmol/L Normal 133-145 [facility] Comment on above: Order Comment: 211.1 Performed By: #### L [id number] #### [facility] [address] [place], [address] T PROT 6.1 g/dL Normal 5.9-8.4 [facility] Comment on above: Order Comment: 211.1 Performed By: #### L [id number] #### [facility] [address] [place], [address] Urea nitrogen [Mass/Vol] 29 mg/dL High 4-19 [facility] Comment on above: Order Comment: 211.1 Performed By: #### L [id number] #### [facility] [address] 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 Patient resides at [facility]. PC to [facility] [phone]. I spoke with her nurse Joyce. They are able to draw labs at facility. Will have orders faxed to [phone]. She verbalized understanding. Normal [facility] 36 Patient cancelled OV today with comment that she is sick. PC to patient. Unable to LMOM as VM not accepting messages. Normal [facility] 36on 03-26-2025 36 RBC aware patient has OV tomorrow. Normal [facility] 36 PC to patient. Unable to LMOM as VM is full. Normal [facility] 36on 03-25-2025 36 Remote received for Monitored [place] event. Normal [facility] Ammoniaon 03-12-2025 Ammonia (P) [Moles/Vol] 41.3 umol/L Normal [facility] Comment on above: Order Comment: 211.1 Performed By: #### L 500.4050, L501.9985, L100.0500, L501.9520, L503.5510 #### [facility] [address] [place], [address] CBC-Complete Blood Cnt No Di ffon 03-12-2025 Erythrocyte distribution width (RBC) [Ratio] 13.2 % Normal 11.6-14.6 [facility] Comment on above: Order Comment: 211.1 Performed By: #### L 500.4050, L501.9985, L100.0500, L501.9520, L503.5510 #### [facility] [address] [place], [address] Hematocrit (Bld) [Volume fraction] 35.5 % Low 37-47 [facility] Comment on above: Order Comment: 211.1 Performed By: #### L 500.4050, L501.9985, L100.0500, L501.9520, L503.5510 #### [facility] [address] [place], [address] Hemoglobin (Bld) [Mass/Vol] 11.7 g/dL Low 12.0-15.0 [facility] Comment on above: Order Comment: 211.1 Performed By: #### L 500.4050, L501.9985, L100.0500, L501.9520, L503.5510 #### [facility] [address] [place], [address] MCH (RBC) [Entitic mass] 32.8 pg High 27.0-32.0 [facility] Comment on above: Order Comment: 211.1 Performed By: #### L 500.4050, L501.9985, L100.0500, L501.9520, L503.5510 #### [facility] [address] [place], [address] MCHC (RBC) [Mass/Vol] 33.0 g/dL Normal 32-36 [facility] Comment on above: Order Comment: 211.1 Performed By: #### L 500.4050, L501.9985, L100.0500, L501.9520, L503.5510 #### [facility] [address] [place], [address] MCV (RBC) [Entitic vol] 99.4 fL High 81-99 [facility] Comment on above: Order Comment: 211.1 Performed By: #### L 500.4050, L501.9985, L100.0500, L501.9520, L503.5510 #### [facility] [address] [place], [address] Platelet mean volume (Bld) [Entitic vol] 11.9 fL Normal 6.2-12.0 [facility] Comment on above: Order Comment: 211.1 Performed By: #### L 500.4050, L501.9985, L100.0500, L501.9520, L503.5510 #### [facility] [address] [place], [address] Platelets (Bld) [#/Vol] 118 10*3/uL Low 150-450 [facility] Comment on above: Order Comment: 211.1 Performed By: #### L 500.4050, L501.9985, L100.0500, L501.9520, L503.5510 #### [facility] [address] [place], [address] RBC (Bld) [#/Vol] 3.57 10*6/uL Low 4.2-5.4 [facility] Comment on above: Order Comment: 211.1 Performed By: #### L 500.4050, L501.9985, L100.0500, L501.9520, L503.5510 #### [facility] [address] [place], [address] RDW SD 47.8 fl High 35.1-43.9 [facility] Comment on above: Order Comment: 211.1 Performed By: #### L 500.4050, L501.9985, L100.0500, L501.9520, L503.5510 #### [facility] [address] [place], [address] WBC (Bld) [#/Vol] 5.6 10*3/uL Normal 4.4-11.0 [facility] Comment on above: Order Comment: 211.1 Performed By: #### L 500.4050, L501.9985, L100.0500, L501.9520, L503.5510 #### [facility] [address] [place], [address] Comprehensive Metabolic Prof [facility] 03-12-2025 Albumin [Mass/Vol] 3.3 g/dL Low 3.4-4.8 [facility] Comment on above: Order Comment: 211.1 Performed By: #### L 500.4050, L501.9985, L100.0500, L501.9520, L503.5510 #### [facility] [address] [place], [address] Albumin/Globulin [Mass ratio] 1.0 {ratio} Normal 0.9-2.4 [facility] Comment on above: Order Comment: 211.1 Performed By: #### L 500.4050, L501.9985, L100.0500, L501.9520, L503.5510 #### [facility] [address] [place], [address] ALK PHOS 169 U/L High 35-104 [facility] Comment on above: Order Comment: 211.1 Performed By: #### L 500.4050, L501.9985, L100.0500, L501.9520, L503.5510 #### [facility] [address] [place], [address] ALT [Catalytic activity/Vol] 31 U/L Normal <=34 [facility] Comment on above: Order Comment: 211.1 Performed By: #### L 500.4050, L501.9985, L100.0500, L501.9520, L503.5510 #### [facility] [address] [place], [address] AST [Catalytic activity/Vol] 46 U/L High <=31 [facility] Comment on above: Order Comment: 211.1 Performed By: #### L 500.4050, L501.9985, L100.0500, L501.9520, L503.5510 #### [facility] [address] [place], [address] Bilirubin [Mass/Vol] 0.76 mg/dL Normal 0.00-1.30 [facility] Comment on above: Order Comment: 211.1 Performed By: #### L 500.4050, L501.9985, L100.0500, L501.9520, L503.5510 #### [facility] [address] [place], [address] BUN/CRE 20.3 RATIO High 10-20 [facility] Comment on above: Order Comment: 211.1 Performed By: #### L 500.4050, L501.9985, L100.0500, L501.9520, L503.5510 #### [facility] [address] [place], [address] Calcium [Mass/Vol] 9.8 mg/dL Normal 7.6-11.0 [facility] Comment on above: Order Comment: 211.1 Performed By: #### L 500.4050, L501.9985, L100.0500, L501.9520, L503.5510 #### [facility] [address] [place], [address] Chloride [Moles/Vol] 105 mmol/L Normal 98-108 [facility] Comment on above: Order Comment: 211.1 Performed By: #### L 500.4050, L501.9985, L100.0500, L501.9520, L503.5510 #### [facility] [address] [place], [address] CO2 [Moles/Vol] 24.3 mmol/L Normal 21.0-32.0 [facility] Comment on above: Order Comment: 211.1 Performed By: #### L 500.4050, L501.9985, L100.0500, L501.9520, L503.5510 #### [facility] [address] [place], [address] Creatinine [Mass/Vol] 1.40 mg/dL High 0.70-1.20 [facility] Comment on above: Order Comment: 211.1 Performed By: #### L 500.4050, L501.9985, L100.0500, L501.9520, L503.5510 #### [facility] [address] [place], [address] GAP 11 Normal 5-15 [facility] Comment on above: Order Comment: 211.1 Performed By: #### L 500.4050, L501.9985, L100.0500, L501.9520, L503.5510 #### [facility] [address] [place], [address] GFR/1.73 sq M.predicted among non-blacks MDRD (S/P/Bld) [Vol rate/Area] 38 mL/min/{1.73_m2} Low >60 [facility] Comment on above: Order Comment: 211.1 Result Comment: mL/m in/1.73m2 CKD-EPI Creatinine Equation (2020) Performed By: #### L 500.4050, L501.9985, L100.0500, L501.9520, L503.5510 #### [facility] [address] [place], [address] Globulin (S) [Mass/Vol] 3.2 g/dL Normal 2.2-4.2 [facility] Comment on above: Order Comment: 211.1 Performed By: #### L 500.4050, L501.9985, L100.0500, L501.9520, L503.5510 #### [facility] [address] [place], [address] Glucose [Mass/Vol] 157 mg/dL High 70-99 [facility] Comment on above: Order Comment: 211.1 Performed By: #### L 500.4050, L501.9985, L100.0500, L501.9520, L503.5510 #### [facility] [address] [place], [address] Potassium [Moles/Vol] 3.7 mmol/L Normal 3.3-5.1 [facility] Comment on above: Order Comment: .1 Performed By: #### L 500.4050, L501.9985, L100.0500, L501.9520, L503.5510 #### [facility] [address] [place], [address] Sodium [Moles/Vol] 141 mmol/L Normal 133-145 [facility] Comment on above: Order Comment: 211.1 Performed By: #### L 500.4050, L501.9985, L100.0500, L501.9520, L503.5510 #### [facility] [address] [place], [address] T PROT 6.4 g/dL Normal 5.9-8.4 [facility] Comment on above: Order Comment: 211.1 Performed By: #### L 500.4050, L501.9985, L100.0500, L501.9520, L503.5510 #### [facility] [address] [place], [address] Urea nitrogen [Mass/Vol] 28 mg/dL High 4-19 [facility] Comment on above: Order Comment: 211.1 Performed By: #### L 500.4050, L501.9985, L100.0500, L501.9520, L503.5510 #### [facility] [address] [place], [address] Hemoglobin A1con 03-12-2025 HbA1c (Bld) [Mass fraction] 7.3 % High <=5.6 [facility] Comment on above: Order Comment: 211.1 Result Comment: Norm al < 5.7 % Prediabetic 5.7 - 6.4 % Diabetic >or= 6.5 % Please note range changes. Performed By: #### L 500.4050 #### [facility] [address] [place], [address] Thyroid Stim Hormone (TSH)on 03-12-2025 TSH 4.620 uIU/mL High 0.300-4.200 [facility] Comment on above: Order Comment: 211.1 Performed By: #### L 500.4050 #### [facility] [address] [place], [address] Potassiumon 02-11-2025 Potassium [Moles/Vol] 3.6 mmol/L Normal 3.3-5.1 [facility] Comment on above: Order Comment: 211.1 Performed By: #### L 501.5600 #### [facility] [address] [place], [address] Comprehensive Metabolic Prof ilon 02-05-2025 Albumin [Mass/Vol] 3.0 g/dL Low 3.4-4.8 [facility] Comment on above: Order Comment: 211.1 Performed By: #### L 500.4050 #### [facility] [address] [place], [address] Albumin/Globulin [Mass ratio] 1.0 {ratio} Normal 0.9-2.4 [facility] Comment on above: Order Comment: 211.1 Performed By: #### L 500.4050 #### [facility] [address] [place], [address] ALK PHOS 165 U/L High 35-104 [facility] Comment on above: Order Comment: 211.1 Performed By: #### L 500.4050 #### [facility] [address] [place], [address] ALT [Catalytic activity/Vol] 30 U/L Normal <=34 [facility] Comment on above: Order Comment: 211.1 Performed By: #### L 500.4050 #### [facility] [address] [place], [address] AST [Catalytic activity/Vol] 44 U/L High <=31 [facility] Comment on above: Order Comment: 211.1 Performed By: #### L 500.4050 #### [facility] [address] [place], [address] Bilirubin [Mass/Vol] 0.74 mg/dL Normal 0.00-1.30 [facility] Comment on above: Order Comment: 211.1 Performed By: #### L 500.4050 #### [facility] [address] [place], [address] BUN/CRE 17.4 RATIO Normal 10-20 [facility] Comment on above: Order Comment: 211.1 Performed By: #### L 500.4050 #### [facility] [address] [place], [address] Calcium [Mass/Vol] 9.2 mg/dL Normal 7.6-11.0 [facility] Comment on above: Order Comment: 211.1 Performed By: #### L 500.4050 #### [facility] [address] [place], [address] Chloride [Moles/Vol] 105 mmol/L Normal 98-108 [facility] Comment on above: Order Comment: 211.1 Performed By: #### L 500.4050 #### [facility] [address] [place], [address] CO2 [Moles/Vol] 25.4 mmol/L Normal 21.0-32.0 [facility] Comment on above: Order Comment: 211.1 Performed By: #### L 500.4050 #### [facility] [address] [place], [address] Creatinine [Mass/Vol] 1.44 mg/dL High 0.70-1.20 [facility] Comment on above: Order Comment: 211.1 Performed By: #### L 500.4050 #### [facility] [address] [place], [address] GAP 11 Normal 5-15 [facility] Comment on above: Order Comment: 211.1 Performed By: #### L 500.4050 #### [facility] [address] [place], [address] GFR/1.73 sq M.predicted among non-blacks MDRD (S/P/Bld) [Vol rate/Area] 37 mL/min/{1.73_m2} Low >60 [facility] Comment on above: Order Comment: 211.1 Result Comment: mL/m in/1.73m2 CKD-EPI Creatinine Equation (2020) Performed By: #### L 500.4050 #### [facility] [address] [place], [address] Globulin (S) [Mass/Vol] 3.0 g/dL Normal 2.2-4.2 [facility] Comment on above: Order Comment: 211.1 Performed By: #### L 500.4050 #### [facility] [address] [place], [address] Glucose [Mass/Vol] 145 mg/dL High 70-99 [facility] Comment on above: Order Comment: 211.1 Performed By: #### L 500.4050 #### [facility] [address] [place], [address] Potassium [Moles/Vol] 3.2 mmol/L Low 3.3-5.1 [facility] Comment on above: Order Comment: 211.1 Performed By: #### L 500.4050 #### [facility] [address] [place], [address] Sodium [Moles/Vol] 142 mmol/L Normal 133-145 [facility] Comment on above: Order Comment: 211.1 Performed By: #### L 500.4050 #### [facility] [address] [place], [address] T PROT 6.0 g/dL Normal 5.9-8.4 [facility] Comment on above: Order Comment: 211.1 Performed By: #### L 500.4050 #### [facility] [address] [place], [address] Urea nitrogen [Mass/Vol] 25 mg/dL High 4-19 [facility] Comment on above: Order Comment: 211.1 Performed By: #### L 500.4050 #### [facility] [address] [place], [address] Office Visiton 01-11-2025 Follow-up visit [id number] Mikel Winston 1945 F Date Provider Department Center 01/11/2025 [id number]-EMTERPRAVIN POOLE [facility] [address] Ar Family History Problem Relation Age of Onset Stroke Father's Brother Diabetes Father Mental illness Mother Coronary artery disease Brother Family Status - Relation Status Age at Father's Brother Father Mother Brother Level of Service:03343 CO OFFICE/OUTPATIENT ESTABLISHED LOW MDM 20 MIN Reason for Visit and Comments: Follow-up [019615] Normal [facility] Progress Noteon 01-11-2025 Progress Note [facility] Cardiology [facility] [address] [facility] [id number] Dept: [phone] Dept Loc: [phone] Visit type: Established : 1945 Chief Complaint: [...] Negative. Genitourinary: Negative. Musculoskeletal: Negative. Skin: Negative. Allergic/Immunologic : Negative. Neurological: Negative. Hematological: Negative. Psychiatric/Behavior al: Negative. Physical Examination: Vitals: Vitals: 01/11/25 1516 01/11/25 1530 BP: (!) 150/78 (!) 144/74 BP Location: Left arm Left arm Patient Position: Sitting Sitting BP Cuff Size: Adult Pulse: 84 SpO2: 97% Weight: 202 lb (91.6 kg) Height: 5' 4 (1.626 m) Body mass index is 34.67 kg/m?. Physical Exam Constitutional: Appearance: Normal appearance. HENT: [...] 05/31/2024 Performed by Pravin Poole MD at [facility] Cardiac Cath/EP Lab CHOLECYSTECTOMY CORONARY ARTERY [...] , Rfl: cyanocobalamin (Vitamin B-12) 100 MCG (more content not included)... Normal [facility] Basic Metabolic Profile (BMP )on 01-10-2025 BUN/CRE 18.5 RATIO Normal 10-20 [facility] Comment on above: Order Comment: 211.1 Performed By: #### L 503.5510 #### [facility] Laboratory [address] [place], [address] Calcium [Mass/Vol] 9.0 mg/dL Normal 7.6-11.0 [facility] Comment on above: Order Comment: 211.1 Performed By: #### L 503.5510 #### [facility] [address] [place], [address] Chloride [Moles/Vol] 104 mmol/L Normal 98-108 [facility] Comment on above: Order Comment: 211.1 Performed By: #### L 503.5510 #### [facility] [address] [place], [address] CO2 [Moles/Vol] 25.7 mmol/L Normal 21.0-32.0 [facility] Comment on above: Order Comment: 211.1 Performed By: #### L 503.5510 #### [facility] [address] [place], [address] Creatinine [Mass/Vol] 1.31 mg/dL High 0.70-1.20 [facility] Comment on above: Order Comment: 211.1 Performed By: #### L 503.5510 #### [facility] [address] [place], [address] GAP 10 Normal 5-15 [facility] Comment on above: Order Comment: 211.1 Performed By: #### L 503.5510 #### [facility] [address] [place], [address] GFR/1.73 sq M.predicted among non-blacks MDRD (S/P/Bld) [Vol rate/Area] 41 mL/min/{1.73_m2} Low >60 [facility] Comment on above: Order Comment: 211.1 Result Comment: mL/m in/1.73m2 CKD-EPI Creatinine Equation (2020) Performed By: #### L 503.5510 #### [facility] [address] [place], [address] Glucose [Mass/Vol] 134 mg/dL High 70-99 [facility] Comment on above: Order Comment: 211.1 Performed By: #### L 503.5510 #### [facility] [address] [place], [address] Potassium [Moles/Vol] 3.5 mmol/L Normal 3.3-5.1 [facility] Comment on above: Order Comment: 211.1 Performed By: #### L 503.5510 #### [facility] [address] [place], [address] Sodium [Moles/Vol] 140 mmol/L Normal 133-145 [facility] Comment on above: Order Comment: 211.1 Performed By: #### L 503.5510 #### [facility] [address] [place], [address] Urea nitrogen [Mass/Vol] 24 mg/dL High 4-19 [facility] Comment on above: Order Comment: 211.1 Performed By: #### L 503.5510 #### [facility] [address] [place], [address] CBC-Complete Blood Cnt No Di ffon 01-10-2025 Erythrocyte distribution width (RBC) [Ratio] 13.4 % Normal 11.6-14.6 [facility] Comment on above: Order Comment: 211.1 Performed By: #### L 503.5510 #### [facility] [address] [place], [address] Hematocrit (Bld) [Volume fraction] 34.1 % Low 37-47 [facility] Comment on above: Order Comment: 211.1 Performed By: #### L 503.5510 #### [facility] [address] [place], [address] Hemoglobin (Bld) [Mass/Vol] 11.3 g/dL Low 12.0-15.0 [facility] Comment on above: Order Comment: 211.1 Performed By: #### L 503.5510 #### [facility] [address] [place], [address] MCH (RBC) [Entitic mass] 32.8 pg High 27.0-32.0 [facility] Comment on above: Order Comment: 211.1 Performed By: #### L 503.5510 #### [facility] [address] [place], [address] MCHC (RBC) [Mass/Vol] 33.1 g/dL Normal 32-36 [facility] Comment on above: Order Comment: 211.1 Performed By: #### L 503.5510 #### [facility] [address] [place], [address] MCV (RBC) [Entitic vol] 98.8 fL Normal 81-99 [facility] Comment on above: Order Comment: 211.1 Performed By: #### L 503.5510 #### [facility] [address] [place], [address] Platelet mean volume (Bld) [Entitic vol] 11.6 fL Normal 6.2-12.0 [facility] Comment on above: Order Comment: 211.1 Performed By: #### L 503.5510 #### [facility] [address] [place], [address] Platelets (Bld) [#/Vol] 125 10*3/uL Low 150-450 [facility] Comment on above: Order Comment: 211.1 Performed By: #### L 503.5510 #### [facility] [address] [place], [address] RBC (Bld) [#/Vol] 3.45 10*6/uL Low 4.2-5.4 [facility] Comment on above: Order Comment: 211.1 Performed By: #### L 503.5510 #### [facility] [address] [place], [address] RDW SD 47.8 fl High 35.1-43.9 [facility] Comment on above: Order Comment: 211.1 Performed By: #### L 503.5510 #### [facility] [address] [place], [address] WBC (Bld) [#/Vol] 7.4 10*3/uL Normal 4.4-11.0 [facility] Comment on above: Order Comment: 211.1 Performed By: #### L 503.5510 #### [facility] [address] [place], [address] Hemoglobin A1con 12-25-2024 HbA1c (Bld) [Mass fraction] 7.0 % High <=5.6 [facility] Comment on above: Order Comment: 211.1 Result Comment: Norm al < 5.7 % Prediabetic 5.7 - 6.4 % Diabetic >or= 6.5 % Please note range changes. Performed By: #### L 500.4050 #### [facility] [address] [place], [address] CBC-Complete Blood Cnt No Monique poe 11-26-2024 Erythrocyte distribution width (RBC) [Ratio] 13.9 % Normal 11.6-14.6 [facility] Comment on above: Order Comment: 211.1 Performed By: #### L 500.4050 #### [facility] [address] [place], [address] Hematocrit (Bld) [Volume fraction] 32.2 % Low 37-47 [facility] Comment on above: Order Comment: 211.1 Performed By: #### L 500.4050 #### [facility] [address] [place], [address] Hemoglobin (Bld) [Mass/Vol] 10.5 g/dL Low 12.0-15.0 [facility] Comment on above: Order Comment: 211.1 Performed By: #### L 500.4050 #### [facility] [address] [place], [address] MCH (RBC) [Entitic mass] 32.0 pg Normal 27.0-32.0 [facility] Comment on above: Order Comment: 211.1 Performed By: #### L 500.4050 #### [facility] [address] [place], [address] MCHC (RBC) [Mass/Vol] 32.6 g/dL Normal 32-36 [facility] Comment on above: Order Comment: 211.1 Performed By: #### L 500.4050 #### [facility] [address] [place], [address] MCV (RBC) [Entitic vol] 98.2 fL Normal 81-99 [facility] Comment on above: Order Comment: 211.1 Performed By: #### L 500.4050 #### [facility] [address] [place], [address] Platelet mean volume (Bld) [Entitic vol] 10.6 fL Normal 6.2-12.0 [facility] Comment on above: Order Comment: 211.1 Performed By: #### L [id number] #### [facility] [address] [place], [address] Platelets (Bld) [#/Vol] 142 10*3/uL Low 150-450 [facility] Comment on above: Order Comment: 211.1 Performed By: #### L [id number] #### [facility] [address] [place], [address] RBC (Bld) [#/Vol] 3.28 10*6/uL Low 4.2-5.4 [facility] Comment on above: Order Comment: 211.1 Performed By: #### L [id number] #### [facility] [address] [place], [address] RDW SD 49.7 fl High 35.1-43.9 [facility] Comment on above: Order Comment: 211.1 Performed By: #### L [id number] #### [facility] [address] [place], [address] WBC (Bld) [#/Vol] 9.6 10*3/uL Normal 4.4-11.0 [facility] Comment on above: Order Comment: 211.1 Performed By: #### L [id number] #### [facility] [address] [place], [address] Erythrocyte distribution wid th (RBC) [Ratio]Ordered By: Julieth Olmedo on 11-26-2024 Erythrocyte distribution width (RBC) [Entitic vol] 49.7 fL High 35.1-43.9 [facility] Erythrocyte distribution wid th ratioOrdered By: Julieth Olmedo on 11-26-2024 Erythrocyte distribution width (RBC) [Ratio] 13.9 % 11.6-14.6 [facility] Hematocrit Auto (Bld) [Volum e fraction]Ordered By: Julieth Olmedo on 11-26-2024 Hematocrit (Bld) [Volume fraction] 32.2 % Low 37-47 [facility] Hemoglobin measurementOrdere d By: Julieth Olmedo on 11-26-2024 Hemoglobin (Bld) [Mass/Vol] 10.5 g/dL Low 12.0-15.0 [facility] Influenza virus A and B and SARS-CoV-2 (COVID-19) and Respiratory syncytial virus RNAOrdered By: Julieth Olmedo on 11-26-2024 SARS-CoV-2 (COVID-19) RNA HUGO+probe Ql (Unsp spec) [facility] M100.678on 11-26-2024 M100.678 Pending SARS-CoV-2 (COVID 19) Negative INFLUENZA A Negative INFLUENZA B Negative RSV PCR Negative Normal [facility] Comment on above: Performed By: #### L [id number] #### [facility] [address] [place], [address] MCV (mean corpuscular volume ) determinationOrdered By: Julieth Olmedo on 11-26-2024 MCV (RBC) [Entitic vol] 98.2 fL 81-99 [facility] Mean corpuscular hemoglobin (MCH) determinationOrdered By: Julieth Olmedo on 11-26-2024 MCH (RBC) [Entitic mass] 32.0 pg 27.0-32.0 [facility] Mean corpuscular hemoglobin concentration (MCHC) determinationOrdered By: Julieth Olmedo on 11-26-2024 MCHC (RBC) [Mass/Vol] 32.6 g/dL 32-36 [facility] Mean platelet volume determi nationOrdered By: Julieth Olmedo on 11-26-2024 Platelet mean volume (Bld) [Entitic vol] 10.6 fL 6.2-12.0 [facility] Platelet countOrdered By: Chen on 11-26-2024 Platelets (Bld) [#/Vol] 142 10*3/uL Low 150-450 [facility] RBC Auto (Bld) [#/Vol]Ordere d By: Julieth Olmedo on 04-21-2025 RBC (Bld) [#/Vol] 3.28 10*6/uL Low 4.2-5.4 [facility] White blood cell (WBC) count Ordered By: Julieth Olmedo on 11-26-2024 WBC (Bld) [#/Vol] 9.6 10*3/uL 4.4-11.0 [facility] Ammoniaon 11-12-2024 Ammonia (P) [Moles/Vol] 38.0 umol/L Normal [facility] Comment on above: Order Comment: 211.1 Performed By: #### L [id number] #### [facility] [address] [place], [place], [id number] Venous blood ammonia measure mentOrdered By: Julieth Olmedo on 11-12-2024 Ammonia (P) [Moles/Vol] 38.0 umol/L [facility] Anion gap in Serum or Plasma Ordered By: Julieth Olmedo on 11-02-2024 Anion gap [Moles/Vol] 11 mmol/L 12-20 [facility] BUN/creatinine ratioOrdered By: Julieth Olmedo on 11-02-2024 Urea nitrogen/Creatinine [Mass ratio] 14.1 mg/mg 05-27 [facility] Basic Metabolic Profile (BMP )on 11-02-2024 BUN/CRE 14.1 RATIO Normal 05-27 [facility] Comment on above: Order Comment: 211.1 Performed By: #### L [id number] #### [facility] [address] [place], [address] Calcium [Mass/Vol] 9.4 mg/dL Normal 7.6-11.0 [facility] Comment on above: Order Comment: 211.1 Performed By: #### L [id number] #### [facility] [address] [place], [place], [phone] Chloride [Moles/Vol] 103 mmol/L Normal 98-108 [facility] Comment on above: Order Comment: 211.1 Performed By: #### L [id number] #### [facility] [address] [place], [address] CO2 [Moles/Vol] 25.6 mmol/L Normal 21.0-32.0 [facility] Comment on above: Order Comment: 211.1 Performed By: #### L [id number] #### [facility] [address] [place], [address] Creatinine [Mass/Vol] 1.52 mg/dL High 0.70-1.20 [facility] Comment on above: Order Comment: . Performed By: #### L [id number] #### [facility] [address] [place], [address] GAP 11 Normal 5-15 [facility] Comment on above: Order Comment: . Performed By: #### L [id number] #### [facility] [address] [place], [address] GFR/1.73 sq M.predicted among non-blacks MDRD (S/P/Bld) [Vol rate/Area] 35 mL/min/{1.73_m2} Low >60 [facility] Comment on above: Order Comment: . Result Comment: mL/m in/1.73m2 CKD-EPI Creatinine Equation (2020) Performed By: #### L [id number] #### [facility] [address] [place], [address] Glucose [Mass/Vol] 136 mg/dL High 70-99 [facility] Comment on above: Order Comment: . Performed By: #### L [id number] #### [facility] [address] [place], [address] Potassium [Moles/Vol] 3.8 mmol/L Normal 3.3-5.1 [facility] Comment on above: Order Comment: . Performed By: #### L [id number] #### [facility] [address] [place], [place], [address] Sodium [Moles/Vol] 139 mmol/L Normal 133-145 [facility] Comment on above: Order Comment: 211.1 Performed By: #### L [id number] #### [facility] [address] [place], [place], [address] Urea nitrogen [Mass/Vol] 22 mg/dL High 4-19 [facility] Comment on above: Order Comment: 211.1 Performed By: #### L [id number] #### [facility] [address] [place], [place], [address] Carbon dioxide, total [Moles /volume] in Central venous bloodOrdered By: Julieth Olmedo on 11-02-2024 CO2 [Moles/Vol] 25.6 mmol/L 21.0-32.0 [facility] Chloride assayOrdered By: Chen on 11-02-2024 Chloride [Moles/Vol] 103 mmol/L 98-108 [facility] GFR/1.73 sq M.predicted zakia g non-blacks MDRD (S/P/Bld) [Vol rate/Area]Ordered By: Julieth Olmedo on 11-02-2024 Estimated GFR (MDRD) Non-Af Amer 35 Low >60 [facility] Comment on above: mL/min/1.73m2 CKD-EP I Creatinine Equation (2020) Potassium (Unsp spec) [Mass/ Vol]Ordered By: Julieth Olmedo on 11-02-2024 Potassium [Moles/Vol] 3.8 mmol/L 3.3-5.1 [facility] Serum creatinine measurement (mass/volume)Ordered By: Julieth Olmedo on 11-02-2024 Creatinine [Mass/Vol] 1.52 mg/dL High 0.70-1.20 [facility] Serum glucose measurement (m ass/volume)Ordered By: uJlieth Olmedo on 11-02-2024 Glucose [Mass/Vol] 136 mg/dL High 70-99 [facility] Serum or plasma calcium kirstin urement (mass/volume)Ordered By: Julieth Olmedo on 11-02-2024 Calcium [Mass/Vol] 9.4 mg/dL 7.6-11.0 [facility] Serum or plasma urea nitroge n measurement (mass/volume)Ordered By: Julieth Olmedo on 11-02-2024 Urea nitrogen [Mass/Vol] 22 mg/dL High 4-19 [facility] Sodium levelOrdered By: Julieth Olmedo on 11-02-2024 Sodium [Moles/Vol] 139 mmol/L 133-145 [facility] Anion gap in Serum or Plasma Ordered By: Julieth Olmedo on 10-26-2024 Anion gap [Moles/Vol] 10 mmol/L 5-15 [facility] BUN/creatinine ratioOrdered By: Julieht Olmedo on 10-26-2024 Urea nitrogen/Creatinine [Mass ratio] 17.4 mg/mg 10- [facility] Basic Metabolic Profile (BMP )on 10-26-2024 BUN/CRE 17.4 RATIO Normal - [facility] Comment on above: Order Comment: 211.1 Performed By: #### L [id number] #### [facility] [address] [place], [address] Calcium [Mass/Vol] 9.1 mg/dL Normal 7.6-11.0 [facility] Comment on above: Order Comment: 211.1 Performed By: #### L [id number] #### [facility] [address] [place], [address] Chloride [Moles/Vol] 103 mmol/L Normal 98-108 [facility] Comment on above: Order Comment: 211.1 Performed By: #### L [id number] #### [facility] [address] [place], [address] CO2 [Moles/Vol] 26.5 mmol/L Normal 21.0-32.0 [facility] Comment on above: Order Comment: 211.1 Performed By: #### L [id number] #### [facility] [address] [place], [address] Creatinine [Mass/Vol] 1.39 mg/dL High 0.70-1.20 [facility] Comment on above: Order Comment: 211.1 Performed By: #### L [id number] #### [facility] [address] [place], [address] GAP 10 Normal 5-15 [facility] Comment on above: Order Comment: 211.1 Performed By: #### L [id number] #### [facility] [address] [place], [address] GFR/1.73 sq M.predicted among non-blacks MDRD (S/P/Bld) [Vol rate/Area] 39 mL/min/{1.73_m2} Low >60 [facility] Comment on above: Order Comment: .1 Result Comment: mL/m in/1.73m2 CKD-EPI Creatinine Equation (2020) Performed By: #### L [id number] #### [facility] [address] [place], [address] Glucose [Mass/Vol] 152 mg/dL High 70-99 [facility] Comment on above: Order Comment: 211.1 Performed By: #### L [id number] #### [facility] [address] [place], [address] Potassium [Moles/Vol] 3.5 mmol/L Normal 3.3-5.1 [facility] Comment on above: Order Comment: 211.1 Performed By: #### L [id number] #### [facility] [address] [place], [address] Sodium [Moles/Vol] 139 mmol/L Normal 133-145 [facility] Comment on above: Order Comment: 211.1 Performed By: #### L [id number] #### [facility] [address] [place], [address] Urea nitrogen [Mass/Vol] 24 mg/dL High - [facility] Comment on above: Order Comment: 211.1 Performed By: #### L 503.5509 #### [facility] [address] [place], [address] Carbon dioxide, total [Moles /volume] in Central venous bloodOrdered By: Julieth Olmedo on 10-26-2024 CO2 [Moles/Vol] 26.5 mmol/L 21.0-32.0 [facility] Chloride assayOrdered By: Chen on 10-26-2024 Chloride [Moles/Vol] 103 mmol/L 98-108 [facility] GFR/1.73 sq M.predicted zakia g non-blacks MDRD (S/P/Bld) [Vol rate/Area]Ordered By: Julieth Olmedo on 10-26-2024 Estimated GFR (MDRD) Non-Af Amer 39 Low >60 [facility] Comment on above: mL/min/1.73m2 CKD-EP I Creatinine Equation (2020) Potassium (Unsp spec) [Mass/ Vol]Ordered By: Julieth Olmedo on 10-26-2024 Potassium [Moles/Vol] 3.5 mmol/L 3.3-5.1 [facility] Serum creatinine measurement (mass/volume)Ordered By: Julieth Olmedo on 10-26-2024 Creatinine [Mass/Vol] 1.39 mg/dL High 0.70-1.20 [facility] Serum glucose measurement (m ass/volume)Ordered By: Julieth Olmedo on 10-26-2024 Glucose [Mass/Vol] 152 mg/dL High 70-99 [facility] Serum or plasma calcium kirstin urement (mass/volume)Ordered By: Julieth Olmedo on 10-26-2024 Calcium [Mass/Vol] 9.1 mg/dL 7.6-11.0 [facility] Serum or plasma urea nitroge n measurement (mass/volume)Ordered By: Julieth Olmedo on 10-26-2024 Urea nitrogen [Mass/Vol] 24 mg/dL High - [facility] Sodium levelOrdered By: Julieth Olmedo on 10-26-2024 Sodium [Moles/Vol] 139 mmol/L 133-145 [facility] Ammoniaon 10-15-2024 Ammonia (P) [Moles/Vol] 46.6 umol/L Normal [address] [place] [address] Comment on above: Order Comment: 211.1 Performed By: #### L [id number] #### [facility] [address] [place], [place], [address] Venous blood ammonia measure mentOrdered By: Julieth Olmedo on 10-15-2024 Ammonia (P) [Moles/Vol] 46.6 umol/L [address] [place] [address] Ammoniaon 10-05-2024 Ammonia (P) [Moles/Vol] 62.1 umol/L High [address] Comment on above: Order Comment: 211.1 Performed By: #### L [id number] #### [facility] [address] [place], [place], [address] Venous blood ammonia measure mentOrdered By: Julieth Olmedo on 10-05-2024 Ammonia (P) [Moles/Vol] 62.1 umol/L High [address] [place] [address] 36on 10-02-2024 36 PC to [facility], I spoke with Diego MARRERO Reviewed verbal order. Will send to [facility] as well. She verbalized understanding. [facility] 36on 10-01-2024 36 Called, Diego MARRERO was alittle concerned BP past week, she has not been on RX since PM inserted 09/23 -168/70 2/17 -144/68 2/18-158/64 2/-143/66 2--136/68 2-148-72 2--146/70 HR 70-80 no HF SX , wt stable,no complaints, will inform Dianelys [facility] 36 Rajwinder MARRERO from [facility] requesting return call to clarify medications and BP [phone]. May ask for nurse [facility] Albumin to globulin ratioOrd ered By: Julieth Olmedo on 09-25-2024 Albumin/Globulin [Mass ratio] 0.6 {ratio} Low 0.9-2.4 [facility] Ammoniaon 09-25-2024 Ammonia (P) [Moles/Vol] 48.0 umol/L High 11-32 [facility] Comment on above: Order Comment: 211.1 Performed By: #### L [id number] #### [facility] [address] [place], [address] Bilirubin, totalOrdered By: Julieth Olmedo on 09-25-2024 Bilirubin [Mass/Vol] 0.80 mg/dL 0.20-1.00 [facility] Comment on above: For patients on eltr ombopag therapy, use of Dimension [place] TBIL is not recommended. Blood urea nitrogen (BUN)/cr eatinine ratioOrdered By: Julieth Olmedo on 09-25-2024 Urea nitrogen/Creatinine [Mass ratio] 14.6 mg/mg 10-20 [facility] CBC-Complete Blood Cnt No Di ffon 09-25-2024 Erythrocyte distribution width (RBC) [Ratio] 14.3 % Normal 11.6-14.6 [facility] Comment on above: Order Comment: 211.1 Performed By: #### L [id number] #### [facility] [address] [place], [address] Hematocrit (Bld) [Volume fraction] 32.7 % Low 37-47 [facility] Comment on above: Order Comment: 211.1 Performed By: #### L [id number] #### [facility] [address] [place], [address] Hemoglobin (Bld) [Mass/Vol] 10.5 g/dL Low 12.0-15.0 [facility] Comment on above: Order Comment: 211.1 Performed By: #### L [id number] #### [facility] [address] [place], [address] MCH (RBC) [Entitic mass] 31.5 pg Normal 27.0-32.0 [facility] Comment on above: Order Comment: 211.1 Performed By: #### L [id number] #### [facility] [address] [place], [address] MCHC (RBC) [Mass/Vol] 32.1 g/dL Normal 32-36 [facility] Comment on above: Order Comment: 211.1 Performed By: #### L [id number] #### [facility] [address] [place], [address] MCV (RBC) [Entitic vol] 98.2 fL Normal 81-99 [facility] Comment on above: Order Comment: 211.1 Performed By: #### L [id number] #### [facility] [address] [place], [address] Platelet mean volume (Bld) [Entitic vol] 11.1 fL Normal 6.2-12.0 [facility] Comment on above: Order Comment: 211.1 Performed By: #### L [id number] #### [facility] [address] [place], [address] Platelets (Bld) [#/Vol] 114 10*3/uL Low 150-450 [facility] Comment on above: Order Comment: 211.1 Performed By: #### L [id number] #### [facility] [address] [place], [address] RBC (Bld) [#/Vol] 3.33 10*6/uL Low 4.2-5.4 [facility] Comment on above: Order Comment: 211.1 Performed By: #### L [id number] #### [facility] [address] [place], [address] RDW SD 51.7 fl High 35.1-43.9 [facility] Comment on above: Order Comment: 211.1 Performed By: #### L [id number] #### [facility] [address] [place], [address] WBC (Bld) [#/Vol] 7.0 10*3/uL Normal 4.4-11.0 [facility] Comment on above: Order Comment: 211.1 Performed By: #### L [id number] #### [facility] [address] [place], [id number] ([address] Carbon dioxide measurementOr dered By: Julieth Olmedo on 09-25-2024 CO2 [Moles/Vol] 26.0 mmol/L 21.0-32.0 [facility] Chloride measurementOrdered By: Julieth Olmedo on 09-25-2024 Chloride [Moles/Vol] 107 mmol/L 98-107 [facility] Comprehensive Metabolic Prof ilon 09-25-2024 Albumin [Mass/Vol] 2.5 g/dL Low 3.2-5.0 [facility] Comment on above: Order Comment: 211.1 Performed By: #### L [id number] #### [facility] [address] [place], [address] Albumin/Globulin [Mass ratio] 0.6 {ratio} Low 0.9-2.4 [facility] Comment on above: Order Comment: 211.1 Performed By: #### L [id number] #### [facility] [address] [place], [address] ALK P 152 U/L High 45-117 [facility] Comment on above: Order Comment: 211.1 Performed By: #### L [id number] #### [facility] [address] [place], [address] ALT [Catalytic activity/Vol] 27 U/L Normal 13-56 [facility] Comment on above: Order Comment: 211.1 Performed By: #### L [id number] #### [facility] [address] [place], [address] AST [Catalytic activity/Vol] 44 U/L High 15-37 [facility] Comment on above: Order Comment: 211.1 Performed By: #### L [id number] #### [facility] [address] [place], [address] Bilirubin [Mass/Vol] 0.80 mg/dL Normal 0.20-1.00 [facility] Comment on above: Order Comment: 211.1 Result Comment: For patients on eltrombopag therapy, use of Dimension [place] TBIL is not recommended. Performed By: #### L [id number] #### [facility] [address] [place], [address] BUN/CRE 14.6 RATIO Normal 10-20 [facility] Comment on above: Order Comment: 211.1 Performed By: #### L [id number] #### [facility] [address] [place], [address] CA,Total 9.0 mg/dL Normal 8.5-10.1 [facility] Comment on above: Order Comment: 211.1 Performed By: #### L [id number] #### [facility] [address] [place], [address] Chloride [Moles/Vol] 107 mmol/L Normal 98-107 [facility] Comment on above: Order Comment: 211.1 Performed By: #### L [id number] #### [facility] [address] [place], [address] CO2 [Moles/Vol] 26.0 mmol/L Normal 21.0-32.0 [facility] Comment on above: Order Comment: 211.1 Performed By: #### L [id number] #### [facility] [address] [place], [address] Creatinine [Mass/Vol] 1.23 mg/dL High 0.55-1.02 [facility] Comment on above: Order Comment: 211.1 Result Comment: The validity of the calculated GFR GFRAA in patients over 70 years has not been determined. Clinical correlation is essential. Performed By: #### L [id number] #### [facility] [address] [place], [address] EST GFR - AA 54 mL/min Low >60 [facility] Comment on above: Order Comment: 211.1 Result Comment: Afri can Czech GFR Calc Performed By: #### L [id number] #### [facility] [address] [place], [address] GAP 8 Normal 5-15 [facility] Comment on above: Order Comment: 211.1 Performed By: #### L [id number] #### [facility] [address] [place], [address] GFR/1.73 sq M.predicted among non-blacks MDRD (S/P/Bld) [Vol rate/Area] 45 mL/min/{1.73_m2} Low >60 [facility] Comment on above: Order Comment: 211.1 Result Comment: Non- GFR Calc Performed By: #### L [id number] #### [facility] [address] [place], [address] Globulin (S) [Mass/Vol] 4.0 g/dL Normal 2.2-4.2 [facility] Comment on above: Order Comment: 211.1 Performed By: #### L [id number] #### [facility] [address] [place], [address] Glucose [Mass/Vol] 127 mg/dL High 74-106 [facility] Comment on above: Order Comment: 211.1 Result Comment: Fast ing Glucose result greater than or equal to 126 mg/dL suggests DIABETES MELLITUS per A.D.A. criteria. Performed By: #### L [id number] #### [facility] [address] [place], [address] Potassium [Moles/Vol] 3.5 mmol/L Normal 3.5-5.1 [facility] Comment on above: Order Comment: 211.1 Performed By: #### L [id number] #### [facility] [address] [place], [address] Sodium [Moles/Vol] 141 mmol/L Normal 136-145 [facility] Comment on above: Order Comment: 211.1 Performed By: #### L [id number] #### [facility] [address] [place], [address] T PROT 6.5 g/dL Normal 6.4-8.2 [facility] Comment on above: Order Comment: 211.1 Performed By: #### L [id number] #### [facility] [address] [place], [address] Urea nitrogen [Mass/Vol] 18 mg/dL Normal 7-18 [facility] Comment on above: Order Comment: 211.1 Performed By: #### L [id number] #### [facility] [address] [place], [address] Erythrocyte distribution wid th (RBC) [Ratio]Ordered By: Julieth Olmedo on 09-25-2024 Erythrocyte distribution width (RBC) [Entitic vol] 51.7 fL High 35.1-43.9 [facility] Erythrocyte distribution wid th ratioOrdered By: Julieth Olmedo on 09-25-2024 Erythrocyte distribution width (RBC) [Ratio] 14.3 % 11.6-14.6 [facility] Estimated glomerular filtrat ion rate (GFR) AmericanOrdered By: Julieth Olmedo on 09-25-2024 Estimated GFR (MDRD) Amer 54 mL/min Low >60 [facility] Comment on above: GFR Calc Glomerular filtration rate ( GFR) estimationOrdered By: Julieth Olmedo on 09-25-2024 Estimated GFR (MDRD) Non-Af Amer 45 mL/min Low >60 [facility] Comment on above: Non- GFR Calc Glucose measurementOrdered B y: Julieth Olmedo on 09-25-2024 Glucose [Mass/Vol] 127 mg/dL High 74-106 [facility] Comment on above: Fasting Glucose resu lt greater than or equal to 126 mg/dL suggests DIABETES MELLITUS per A.D.A. criteria. Hematocrit Auto (Bld) [Volum e fraction]Ordered By: Julieth Olmedo on 09-25-2024 Hematocrit (Bld) [Volume fraction] 32.7 % Low 37-47 [facility] Hemoglobin measurementOrdere d By: Julieth Olmedo on 09-25-2024 Hemoglobin (Bld) [Mass/Vol] 10.5 g/dL Low 12.0-15.0 [facility] - Chemistry and C hemistry - challengeOrdered By: Julieth Olmedo on 09-25-2024 AST [Catalytic activity/Vol] 44 U/L High 15-37 [facility] MCV (mean corpuscular volume ) determinationOrdered By: Julieth Olmedo on 09-25-2024 MCV (RBC) [Entitic vol] 98.2 fL 81-99 [facility] Mean corpuscular hemoglobin (MCH) determinationOrdered By: Julieth Olmedo on 09-25-2024 MCH (RBC) [Entitic mass] 31.5 pg 27.0-32.0 [facility] Mean corpuscular hemoglobin concentration (MCHC) determinationOrdered By: Julieth Olmedo on 09-25-2024 MCHC (RBC) [Mass/Vol] 32.1 g/dL 32-36 [facility] Mean platelet volume determi nationOrdered By: Julieth Olmedo on 09-25-2024 Platelet mean volume (Bld) [Entitic vol] 11.1 fL 6.2-12.0 [facility] Platelet countOrdered By: Chen on 09-25-2024 Platelets (Bld) [#/Vol] 114 10*3/uL Low 150-450 [facility] Potassium measurementOrdered By: Julieth Olmedo on 09-25-2024 Potassium [Moles/Vol] 3.5 mmol/L 3.5-5.1 [facility] RBC Auto (Bld) [#/Vol]Ordere d By: Julieth Olmedo on 09-25-2024 RBC (Bld) [#/Vol] 3.33 10*6/uL Low 4.2-5.4 [facility] Serum anion gap measurementO rdered By: Julieth Olmedo on 09-25-2024 Anion gap [Moles/Vol] 8 mmol/L 5-15 [facility] Serum globulin measurementOr dered By: Julieth Olmedo on 09-25-2024 Globulin (S) [Mass/Vol] 4.0 g/dL 2.2-4.2 [facility] Serum or plasma alanine taylor otransferase (ALT) measurementOrdered By: Julieth Olmedo on 09-25-2024 ALT [Catalytic activity/Vol] 27 U/L 13-56 [facility] Serum or plasma albumin kirstin urement (mass/volume)Ordered By: Julieth Olmedo on 09-25-2024 Albumin [Mass/Vol] 2.5 g/dL Low 3.2-5.0 [facility] Serum or plasma alkaline loan sphatase measurementOrdered By: Julieth Olmedo on 09-25-2024 ALP [Catalytic activity/Vol] 152 U/L High 45-117 [facility] Serum or plasma calcium kirstin urement (mass/volume)Ordered By: Julieth Olmedo on 09-25-2024 Calcium [Mass/Vol] 9.0 mg/dL 8.5-10.1 [facility] Serum or plasma creatinine m easurement (mass/volume)Ordered By: Julieth Olmedo on 09-25-2024 Creatinine [Mass/Vol] 1.23 mg/dL High 0.55-1.02 [facility] Comment on above: The validity of the calculated GFR & GFRAA in patients over 70 years has not been determined. Clinical correlation is essential. Serum or plasma urea nitroge n measurement (mass/volume)Ordered By: Julieth Olmedo on 09-25-2024 Urea nitrogen [Mass/Vol] 18 mg/dL 7-18 [facility] Sodium levelOrdered By: Julieth Olmedo on 09-25-2024 Sodium [Moles/Vol] 141 mmol/L 136-145 [facility] Total proteinOrdered By: Karla Olmedo on 09-25-2024 Protein [Mass/Vol] 6.5 g/dL 6.4-8.2 [facility] Venous blood ammonia measure mentOrdered By: Julieth Olmedo on 09-25-2024 Ammonia (P) [Moles/Vol] 48.0 umol/L High - [facility] White blood cell (WBC) count Ordered By: Julieth Olmedo on 09-25-2024 WBC (Bld) [#/Vol] 7.0 10*3/uL 4.4-11.0 [facility] Albumin to globulin ratioOrd ered By: Julieth Olmedo on 08-07-2024 Albumin/Globulin [Mass ratio] 0.8 {ratio} Low 0.9-2.4 [facility] Comment on above: Order Comment: 211.1 Performed By: #### L [id number] #### [facility] [address] [place], [place], [id number] Bilirubin, totalOrdered By: Julieth Olmedo on 08-07-2024 Bilirubin [Mass/Vol] 1.00 mg/dL Normal 0.20-1.00 [facility] Comment on above: For patients on eltr ombopag therapy, use of Dimension [place] TBIL is not recommended. Order Comment: 211.1 Result Comment: For patients on eltrombopag therapy, use of Dimension [place] TBIL is not recommended. Performed By: #### L [id number] #### [facility] [address] [place], [place], [id number] Blood urea nitrogen (BUN)/cr eatinine ratioOrdered By: Julieth Olmedo on 08-07-2024 Urea nitrogen/Creatinine [Mass ratio] 10.9 mg/mg 10-20 [facility] Carbon dioxide measurementOr dered By: Julieth Olmedo on 08-07-2024 CO2 [Moles/Vol] 27.0 mmol/L Normal 21.0-32.0 [facility] Comment on above: Order Comment: 211.1 Performed By: #### L [id number] #### [facility] [address] [place], [address] Chloride measurementOrdered By: Julieth Olmedo on 08-07-2024 Chloride [Moles/Vol] 106 mmol/L Normal 98-107 [facility] Comment on above: Order Comment: 211.1 Performed By: #### L [id number] #### [facility] [address] [place], [address] Comprehensive Metabolic Prof ilon 08-07-2024 ALK P 174 U/L High 45-117 [facility] Comment on above: Order Comment: 211.1 Performed By: #### L [id number] #### [facility] [address] [place], [address] BUN/CRE 10.9 RATIO Normal 10-20 [facility] Comment on above: Order Comment: 211.1 Performed By: #### L [id number] #### [facility] [address] [place], [address] CA,Total 9.3 mg/dL Normal 8.5-10.1 [facility] Comment on above: Order Comment: 211.1 Performed By: #### L [id number] #### [facility] [address] [place], [address] EST GFR - AA 52 mL/min Low >60 [facility] Comment on above: Order Comment: 211.1 Result Comment: Afri can Czech GFR Calc Performed By: #### L [id number] #### [facility] [address] [place], [address] GAP 6 Normal 5-15 [facility] Comment on above: Order Comment: 211.1 Performed By: #### L [id number] #### [facility] [address] [place], [address] GFR/1.73 sq M.predicted among non-blacks MDRD (S/P/Bld) [Vol rate/Area] 43 mL/min/{1.73_m2} Low >60 [facility] Comment on above: Order Comment: . Result Comment: Non- GFR Calc Performed By: #### L [id number] #### [facility] [address] [place], [place], [address] T PROT 6.4 g/dL Normal 6.4-8.2 [facility] Comment on above: Order Comment: . Performed By: #### L [id number] #### [facility] [address] [place], [place], [address] Comprehensive Metabolic Prof ilOrdered By: Julieth Olmedo on 08-07-2024 AST [Catalytic activity/Vol] 47 U/L High 15-37 [facility] Comment on above: Order Comment: . Performed By: #### L [id number] #### [facility] [address] [place], [place], [id number] Estimated glomerular filtrat ion rate (GFR) AmericanOrdered By: Julieth Olmedo on 08-07-2024 Estimated GFR (MDRD) Amer 52 mL/min Low >60 [facility] Comment on above: GFR Calc Glomerular filtration rate ( GFR) estimationOrdered By: Julieth Olmedo on 08-07-2024 Estimated GFR (MDRD) Non-Af Amer 43 mL/min Low >60 [facility] Comment on above: Non- GFR Calc Glucose measurementOrdered B y: Julieth Olmedo on 08-07-2024 Glucose [Mass/Vol] 127 mg/dL High 74-106 [facility] Comment on above: Fasting Glucose resu lt greater than or equal to 126 mg/dL suggests DIABETES MELLITUS per A.D.A. criteria. Order Comment: . Result Comment: Fast ing Glucose result greater than or equal to 126 mg/dL suggests DIABETES MELLITUS per A.D.A. criteria. Performed By: #### L [id number] #### [facility] [address] [place], [address] Potassium measurementOrdered By: Julieth Olmedo on 08-07-2024 Potassium [Moles/Vol] 3.8 mmol/L Normal 3.5-5.1 [facility] Comment on above: Order Comment: 211.1 Performed By: #### L [id number] #### [facility] [address] [place], [place], [phone] Serum anion gap measurementO rdered By: Julieth Olmedo on 08-07-2024 Anion gap [Moles/Vol] 6 mmol/L 5-15 [facility] Serum globulin measurementOr dered By: Julieth Olmedo on 08-07-2024 Globulin (S) [Mass/Vol] 3.6 g/dL Normal 2.2-4.2 [facility] Comment on above: Order Comment: . Performed By: #### L [id number] #### [facility] [address] [place], [place], [phone] ([address] Serum or plasma alanine taylor otransferase (ALT) measurementOrdered By: Julieth Olmedo on 08-07-2024 ALT [Catalytic activity/Vol] 27 U/L Normal 13-56 [facility] Comment on above: Order Comment: 211. Performed By: #### L [id number] #### [facility] [address] [place], [place], [address] ([address] Serum or plasma albumin kirstin urement (mass/volume)Ordered By: Julieth Olmedo on 08-07-2024 Albumin [Mass/Vol] 2.8 g/dL Low 3.2-5.0 [facility] Comment on above: Order Comment: 211.1 Performed By: #### L [id number] #### [facility] [address] [place], [address] Serum or plasma alkaline loan sphatase measurementOrdered By: Julieth Olmedo on 08-07-2024 ALP [Catalytic activity/Vol] 174 U/L High 45-117 [facility] Serum or plasma calcium kirstin urement (mass/volume)Ordered By: Julieth Olmedo on 08-07-2024 Calcium [Mass/Vol] 9.3 mg/dL 8.5-10.1 [facility] Serum or plasma creatinine m easurement (mass/volume)Ordered By: Julieth Olmedo on 08-07-2024 Creatinine [Mass/Vol] 1.28 mg/dL High 0.55-1.02 [facility] Comment on above: The validity of the calculated GFR & GFRAA in patients over 70 years has not been determined. Clinical correlation is essential. Order Comment: 211.1 Result Comment: The validity of the calculated GFR GFRAA in patients over 70 years has not been determined. Clinical correlation is essential. Performed By: #### L [id number] #### [facility] [address] [facility] [place] [facility] [facility] [id number] ([phone] Serum or plasma urea nitroge n measurement (mass/volume)Ordered By: Julieth Olmedo on 08-07-2024 Urea nitrogen [Mass/Vol] 14 mg/dL Normal 7-18 [facility] Comment on above: Order Comment: 211.1 Performed By: #### L [id number] #### [facility] [address] [facility] [place] [facility] [facility] [address] Sodium levelOrdered By: Julieth Olmedo on 08-07-2024 Sodium [Moles/Vol] 139 mmol/L Normal 136-145 [facility] Comment on above: Order Comment: 211.1 Performed By: #### L [id number] #### [facility] [address] [facility] [place] [facility] [facility] [address] Total proteinOrdered By: Karla Olmedo on 08-07-2024 Protein [Mass/Vol] 6.4 g/dL 6.4-8.2 [facility] Venous blood ammonia measure mentOrdered By: Julieth Olmedo on 08-07-2024 Ammonia (P) [Moles/Vol] 31.0 umol/L Normal 11-32 [facility] Comment on above: Order Comment: 211.1 Performed By: #### L [id number] #### [facility] [address] [place], [address] Basic Metabolic Profile (BMP )on 08-03-2024 BUN/CRE 11.8 RATIO Normal 10-20 [facility] Comment on above: Order Comment: 211.1 Performed By: #### L [id number] #### [facility] [address] [place], [address] CA,Total 8.9 mg/dL Normal 8.5-10.1 [facility] Comment on above: Order Comment: 211.1 Performed By: #### L [id number] #### [facility] [address] [place], [address] Chloride [Moles/Vol] 107 mmol/L Normal 98-107 [facility] Comment on above: Order Comment: 211.1 Performed By: #### L [id number] #### [facility] [address] [place], [address] CO2 [Moles/Vol] 26.0 mmol/L Normal 21.0-32.0 [facility] Comment on above: Order Comment: 211.1 Performed By: #### L [id number] #### [facility] [address] [place], [address] Creatinine [Mass/Vol] 1.27 mg/dL High 0.55-1.02 [facility] Comment on above: Order Comment: 211.1 Result Comment: The validity of the calculated GFR GFRAA in patients over 70 years has not been determined. Clinical correlation is essential. Performed By: #### L [id number] #### [facility] [address] [place], [address] EST GFR - AA 52 mL/min Low >60 [facility] Comment on above: Order Comment: 211.1 Result Comment: Afri can Czech GFR Calc Performed By: #### L [id number] #### [facility] [address] [place], [address] GAP 7 Normal 5-15 [facility] Comment on above: Order Comment: 211.1 Performed By: #### L [id number] #### [facility] [address] [place], [address] GFR/1.73 sq M.predicted among non-blacks MDRD (S/P/Bld) [Vol rate/Area] 43 mL/min/{1.73_m2} Low >60 [facility] Comment on above: Order Comment: 211.1 Result Comment: Non- GFR Calc Performed By: #### L [id number] #### [facility] [address] [place], [address] Glucose [Mass/Vol] 117 mg/dL High 74-106 [facility] Comment on above: Order Comment: 211.1 Result Comment: Fast ing Glucose result from 100 to 125 mg/dL suggests IMPAIRED HOMEOSTASIS per A.D.A. criteria. Performed By: #### L [id number] #### [facility] [address] [place], [address] Potassium [Moles/Vol] 3.5 mmol/L Normal 3.5-5.1 [facility] Comment on above: Order Comment: 211.1 Performed By: #### L [id number] #### [facility] [address] [place], [address] Sodium [Moles/Vol] 140 mmol/L Normal 136-145 [facility] Comment on above: Order Comment: 211.1 Performed By: #### L [id number] #### [facility] [address] [place], [address] Urea nitrogen [Mass/Vol] 15 mg/dL Normal 7-18 [facility] Comment on above: Order Comment: 211.1 Performed By: #### L [id number] #### [facility] [address] [place], [address] Blood urea nitrogen (BUN)/cr eatinine ratioOrdered By: Julieth Olmedo on 08-03-2024 Urea nitrogen/Creatinine [Mass ratio] 11.8 mg/mg 10-20 [facility] Carbon dioxide measurementOr dered By: Julieth Olmedo on 08-03-2024 CO2 [Moles/Vol] 26.0 mmol/L 21.0-32.0 [facility] Chloride measurementOrdered By: Julieth Olmedo on 08-03-2024 Chloride [Moles/Vol] 107 mmol/L 98-107 [facility] Estimated glomerular filtrat ion rate (GFR) AmericanOrdered By: Julieth Olmedo on 08-03-2024 Estimated GFR (MDRD) Amer 52 mL/min Low >60 [facility] Comment on above: GFR Calc Glomerular filtration rate ( GFR) estimationOrdered By: Julieth Olmedo on 08-03-2024 Estimated GFR (MDRD) Non-Af Amer 43 mL/min Low >60 [facility] Comment on above: Non- GFR Calc Glucose measurementOrdered B y: Julieth Olmedo on 08-03-2024 Glucose [Mass/Vol] 117 mg/dL High 74-106 [facility] Comment on above: Fasting Glucose resu lt from 100 to 125 mg/dL suggests IMPAIRED HOMEOSTASIS per A.D.A. criteria. Potassium measurementOrdered By: Julieth Olmedo on 08-03-2024 Potassium [Moles/Vol] 3.5 mmol/L 3.5-5.1 [facility] Serum anion gap measurementO rdered By: Julieth Olmedo on 08-03-2024 Anion gap [Moles/Vol] 7 mmol/L 5-15 [facility] Serum or plasma calcium kirstin urement (mass/volume)Ordered By: Julieth Olmedo on 08-03-2024 Calcium [Mass/Vol] 8.9 mg/dL 8.5-10.1 [facility] Serum or plasma creatinine m easurement (mass/volume)Ordered By: Julieth Olmedo on 08-03-2024 Creatinine [Mass/Vol] 1.27 mg/dL High 0.55-1.02 [facility] Comment on above: The validity of the calculated GFR & GFRAA in patients over 70 years has not been determined. Clinical correlation is essential. Serum or plasma urea nitroge n measurement (mass/volume)Ordered By: Julieth Olmedo on 08-03-2024 Urea nitrogen [Mass/Vol] 15 mg/dL 7-18 [facility] Sodium levelOrdered By: Julieth Olmedo on 08-03-2024 Sodium [Moles/Vol] 140 mmol/L 136-145 [facility] Ammoniaon 08-02-2024 Ammonia (P) [Moles/Vol] 40.0 umol/L High [facility] Comment on above: Order Comment: 211.1 Performed By: #### L [id number] #### [facility] [address] [facility] [id number] Venous blood ammonia measure mentOrdered By: Julieth Olmedo on 08-02-2024 Ammonia (P) [Moles/Vol] 40.0 umol/L High [address] [place] [address] TSH QnOrdered By: Julieth gordillo on 07-25-2024 Thyroid Stimulating Hormone (TSH) 1.990 uIU/mL 0.358-3.740 [facility] Thyroid Stim Hormone (TSH)on 07-25-2024 TSH 1.990 uIU/mL Normal 0.358-3.740 [facility] Comment on above: Order Comment: 211.1 Performed By: #### L [id number] #### [facility] [address] [facility] [id number] Ammoniaon 07-20-2024 Ammonia (P) [Moles/Vol] 24.0 umol/L Normal [address] [place] [address] Comment on above: Order Comment: 211.1 Performed By: #### L [id number] #### [facility] [address] [place], [place], [id number] Venous blood ammonia measure mentOrdered By: Julieth Olmedo on 07-20-2024 Ammonia (P) [Moles/Vol] 24.0 umol/L 11-32 [facility] Basic Metabolic Profile (BMP )on 07-19-2024 BUN/CRE 9.2 RATIO Low 10-20 [facility] Comment on above: Order Comment: 211. Performed By: #### L 503.5510 #### [facility] [address] [place], [address] CA,Total 9.3 mg/dL Normal 8.5-10.1 [facility] Comment on above: Order Comment: . Performed By: #### L [id number] #### [facility] [address] [place], [address] EST GFR - AA 50 mL/min Low >60 [facility] Comment on above: Order Comment: . Result Comment: Afri can Czech GFR Calc Performed By: #### L [id number] #### [facility] [address] [place], [address] GAP 6 Normal 5-15 [facility] Comment on above: Order Comment: . Performed By: #### L 503.5510 #### [facility] [address] [place], [address] GFR/1.73 sq M.predicted among non-blacks MDRD (S/P/Bld) [Vol rate/Area] 42 mL/min/{1.73_m2} Low >60 [facility] Comment on above: Order Comment: 211.1 Result Comment: Non- GFR Calc Performed By: #### L [id number] #### [facility] [address] [place], [place], [id number] Blood urea nitrogen (BUN)/cr eatinine ratioOrdered By: Julieth Olmedo on 07-19-2024 Urea nitrogen/Creatinine [Mass ratio] 9.2 mg/mg Low 10-20 [facility] Carbon dioxide measurementOr dered By: Julieth Olmedo on 07-19-2024 CO2 [Moles/Vol] 28.0 mmol/L Normal 21.0-32.0 [facility] Comment on above: Order Comment: 211.1 Performed By: #### L 503.5510 #### [facility] [address] [place], [address] Chloride measurementOrdered By: Julieth Olmedo on 07-19-2024 Chloride [Moles/Vol] 107 mmol/L Normal 98-107 [facility] Comment on above: Order Comment: 211.1 Performed By: #### L 503.5510 #### [facility] [address] [place], [address] Estimated glomerular filtrat ion rate (GFR) AmericanOrdered By: Julieth Olmedo on 07-19-2024 Estimated GFR (MDRD) Amer 50 mL/min Low >60 [facility] Comment on above: GFR Calc Glomerular filtration rate ( GFR) estimationOrdered By: Julieth Olmedo on 07-19-2024 Estimated GFR (MDRD) Non-Af Amer 42 mL/min Low >60 [facility] Comment on above: Non- GFR Calc Glucose measurementOrdered B y: Julieth Olmedo on 07-19-2024 Glucose [Mass/Vol] 125 mg/dL High 74-106 [facility] Comment on above: Fasting Glucose resu lt from 100 to 125 mg/dL suggests IMPAIRED HOMEOSTASIS per A.D.A. criteria. Order Comment: 211.1 Result Comment: Fast ing Glucose result from 100 to 125 mg/dL suggests IMPAIRED HOMEOSTASIS per A.D.A. criteria. Performed By: #### L 503.5510 #### [facility] [address] [place], [address] HH, Hemoglobin AND Hematocri ton 07-19-2024 Hematocrit (Bld) [Volume fraction] 28.5 % Low 37-47 [facility] Comment on above: Order Comment: 211.1 Performed By: #### L 503.5510 #### [facility] [address] [place], [address] Hemoglobin (Bld) [Mass/Vol] 8.8 g/dL Low 12.0-15.0 [facility] Comment on above: Order Comment: 211.1 Performed By: #### L 503.5510 #### [facility] Laboratory [address] [place], [place], [id number] Hematocrit Auto (Bld) [Volum e fraction]Ordered By: Julieth Olmedo on 07-19-2024 Hematocrit (Bld) [Volume fraction] 28.5 % Low 37-47 [facility] Hemoglobin measurementOrdere d By: Julieth Olmedo on 07-19-2024 Hemoglobin (Bld) [Mass/Vol] 8.8 g/dL Low 12.0-15.0 [facility] Potassium measurementOrdered By: Julieth Olmedo on 07-19-2024 Potassium [Moles/Vol] 3.7 mmol/L Normal 3.5-5.1 [facility] Comment on above: Order Comment: 211.1 Performed By: #### L 503.5510 #### [facility] [address] [place], [place], [id number] Serum anion gap measurementO rdered By: Julieth Olmedo on 07-19-2024 Anion gap [Moles/Vol] 6 mmol/L 5-15 [facility] Serum or plasma calcium kirstin urement (mass/volume)Ordered By: Julieth Olmedo on 07-19-2024 Calcium [Mass/Vol] 9.3 mg/dL 8.5-10.1 [facility] Serum or plasma creatinine m easurement (mass/volume)Ordered By: Julieth Olmedo on 07-19-2024 Creatinine [Mass/Vol] 1.31 mg/dL High 0.55-1.02 [facility] Comment on above: The validity of the calculated GFR & GFRAA in patients over 70 years has not been determined. Clinical correlation is essential. Order Comment: 211.1 Result Comment: The validity of the calculated GFR GFRAA in patients over 70 years has not been determined. Clinical correlation is essential. Performed By: #### L 503.5510 #### [facility] [address] [place], [address] Serum or plasma urea nitroge n measurement (mass/volume)Ordered By: Julieth Olmedo on 07-19-2024 Urea nitrogen [Mass/Vol] 12 mg/dL Normal 7-18 [facility] Comment on above: Order Comment: 211.1 Performed By: #### L 503.5510 #### [facility] [address] [place], [address] Sodium levelOrdered By: Julieth Olmedo on 07-19-2024 Sodium [Moles/Vol] 140 mmol/L Normal 136-145 [facility] Comment on above: Order Comment: 211.1 Performed By: #### L 503.5510 #### [facility] Laboratory [address] [place], [address] Ammoniaon 07-18-2024 Ammonia (P) [Moles/Vol] 40.0 umol/L High [facility] Comment on above: Order Comment: 211-1 Performed By: #### L 503.5510 #### [facility] [address] [place], [address] Venous blood ammonia measure mentOrdered By: Julieth Olmedo on 07-18-2024 Ammonia (P) [Moles/Vol] 40.0 umol/L High [facility] HH, Hemoglobin AND Hematocri ton 07-17-2024 Hematocrit (Bld) [Volume fraction] 24.0 % Low 37-47 [facility] Comment on above: Order Comment: 211.1 Performed By: #### L 100.0600 #### [facility] [address] [place], [address] Hemoglobin (Bld) [Mass/Vol] 7.4 g/dL Low 12.0-15.0 [facility] Comment on above: Order Comment: 211.1 Performed By: #### L 100.0600 #### [facility] [address] [place], [place], [id number] Hematocrit Auto (Bld) [Volum e fraction]Ordered By: Julieth Olmedo on 07-17-2024 Hematocrit (Bld) [Volume fraction] 24.0 % Low 37-47 [facility] Hemoglobin measurementOrdere d By: Julieth Olmedo on 07-17-2024 Hemoglobin (Bld) [Mass/Vol] 7.4 g/dL Low 12.0-15.0 [facility] Ammoniaon 07-11-2024 Ammonia (P) [Moles/Vol] 44.0 umol/L High 1132 [facility] Comment on above: Performed By: #### L 503.5510 #### [facility] Laboratory [address] [place], [address] Venous blood ammonia measure mentOrdered By: Julieth Olmedo on 07-11-2024 Ammonia (P) [Moles/Vol] 44.0 umol/L [address] Folates, (Folic Acid)on FOLATES 11.90 ng/mL Normal 3.1-55.4 [facility] Comment on above: Order Comment: 211.1 Performed By: #### L 503.5510 #### [facility] [address] [place], [place], [id number] HH, Hemoglobin AND Hematocri ton 07-10-2024 Hematocrit (Bld) [Volume fraction] 25.2 % Low 37-47 [facility] Comment on above: Order Comment: 211.1 Performed By: #### L 500.4052 #### [facility] [address] [place], [place], [phone] Hemoglobin (Bld) [Mass/Vol] 7.7 g/dL Low 12.0-15.0 [facility] Comment on above: Order Comment: 211.1 Performed By: #### L 500.4053 #### [facility] [address] [place], [address] Ironon 07-10-2024 Iron [Mass/Vol] 73 ug/dL Normal 50-170 [facility] Comment on above: Order Comment: 211.1 Performed By: #### L 503.5510 #### [facility] [address] [place], [address] Vitamin B12on 07-10-2024 Cobalamin (Vitamin B12) [Mass/Vol] 1301 pg/mL High 211-911 [facility] Comment on above: Order Comment: 211.1 Performed By: #### L 503.5510 #### [facility] [address] [place], [address] CBC-Complete Blood Cnt No Di ffon 07-09-2024 Erythrocyte distribution width (RBC) [Ratio] 14.6 % Normal 11.6-14.6 [facility] Comment on above: Order Comment: 211.1 Performed By: #### L 503.5510 #### [facility] [address] [place], [address] Hematocrit (Bld) [Volume fraction] 25.6 % Low 37-47 [facility] Comment on above: Order Comment: 211.1 Performed By: #### L 503.5510 #### [facility] [address] [place], [address] Hemoglobin (Bld) [Mass/Vol] 7.8 g/dL Low 12.0-15.0 [facility] Comment on above: Order Comment: 211.1 Performed By: #### L 503.5510 #### [facility] Laboratory [address] [place], [address] MCH (RBC) [Entitic mass] 30.4 pg Normal 27.0-32.0 [facility] Comment on above: Order Comment: 211.1 Performed By: #### L 503.5510 #### [facility] [address] [place], [address] MCHC (RBC) [Mass/Vol] 30.5 g/dL Low 32-36 [facility] Comment on above: Order Comment: 211.1 Performed By: #### L 503.5510 #### [facility] [address] [place], [address] MCV (RBC) [Entitic vol] 99.6 fL High 81-99 [facility] Comment on above: Order Comment: 211.1 Performed By: #### L 503.5510 #### [facility] [address] [place], [address] Platelet mean volume (Bld) [Entitic vol] 10.7 fL Normal 6.2-12.0 [facility] Comment on above: Order Comment: 211.1 Performed By: #### L 503.5510 #### [facility] Laboratory [address] [place], [address] Platelets (Bld) [#/Vol] 112 10*3/uL Low 150-450 [facility] Comment on above: Order Comment: 211.1 Performed By: #### L 503.5510 #### [facility] [address] [place], [address] RBC (Bld) [#/Vol] 2.57 10*6/uL Low 4.2-5.4 [facility] Comment on above: Order Comment: 211.1 Performed By: #### L 503.5510 #### [facility] Laboratory [address] [place], [address] RDW SD 52.4 fl High 35.1-43.9 [facility] Comment on above: Order Comment: 211.1 Performed By: #### L 503.5510 #### [facility] [address] [place], [address] WBC (Bld) [#/Vol] 5.1 10*3/uL Normal 4.4-11.0 [facility] Comment on above: Order Comment: 211.1 Performed By: #### L 503.5510 #### [facility] [address] [place], [address] Comprehensive Metabolic Prof ilon 07-09-2024 Albumin [Mass/Vol] 2.3 g/dL Low 3.2-5.0 [facility] Comment on above: Order Comment: 211.1 Performed By: #### L 503.5510 #### [facility] [address] [place], [address] Albumin/Globulin [Mass ratio] 0.8 {ratio} Low 0.9-2.4 [facility] Comment on above: Order Comment: 211.1 Performed By: #### L 503.5510 #### [facility] [address] [place], [address] ALK P 122 U/L High 45-117 [facility] Comment on above: Order Comment: 211.1 Performed By: #### L 503.5510 #### [facility] [address] [place], [address] ALT [Catalytic activity/Vol] 30 U/L Normal 13-56 [facility] Comment on above: Order Comment: 211.1 Performed By: #### L 503.5510 #### [facility] [address] [place], [address] AST [Catalytic activity/Vol] 42 U/L High 15-37 [facility] Comment on above: Order Comment: 211.1 Performed By: #### L 503.5510 #### [facility] [address] [place], [address] Bilirubin [Mass/Vol] 0.80 mg/dL Normal 0.20-1.00 [facility] Comment on above: Order Comment: 211.1 Result Comment: For patients on eltrombopag therapy, use of Dimension Phoenix TBIL is not recommended. Performed By: #### L 503.5510 #### [facility] [address] [place], [address] BUN/CRE 14.2 RATIO Normal 10-20 [facility] Comment on above: Order Comment: 211.1 Performed By: #### L 503.5510 #### [facility] [address] [place], [address] CA,Total 8.9 mg/dL Normal 8.5-10.1 [facility] Comment on above: Order Comment: 211.1 Performed By: #### L 503.5510 #### [facility] [address] [place], [address] Chloride [Moles/Vol] 109 mmol/L High 98-107 [facility] Comment on above: Order Comment: 211.1 Performed By: #### L 503.5510 #### [facility] [address] [place], [address] CO2 [Moles/Vol] 27.0 mmol/L Normal 21.0-32.0 [facility] Comment on above: Order Comment: 211.1 Performed By: #### L 503.5510 #### [facility] [address] [place], [address] Creatinine [Mass/Vol] 1.13 mg/dL High 0.55-1.02 [facility] Comment on above: Order Comment: 211.1 Result Comment: The validity of the calculated GFR GFRAA in patients over 70 years has not been determined. Clinical correlation is essential. Performed By: #### L 503.5510 #### [facility] [address] [place], [address] EST GFR - AA 60 mL/min Normal >60 [facility] Comment on above: Order Comment: 211.1 Result Comment: Afri can Czech GFR Calc Performed By: #### L 503.5510 #### [facility] Laboratory [address] [place], [address] GAP 6 Normal 5-15 [facility] Comment on above: Order Comment: 211. Performed By: #### L 503.5510 #### [facility] [address] [place], [address] GFR/1.73 sq M.predicted among non-blacks MDRD (S/P/Bld) [Vol rate/Area] 49 mL/min/{1.73_m2} Low >60 [facility] Comment on above: Order Comment: .1 Result Comment: Non- GFR Calc Performed By: #### L 503.5510 #### [facility] Laboratory [address] [place], [address] Globulin (S) [Mass/Vol] 3.0 g/dL Normal 2.2-4.2 [facility] Comment on above: Order Comment: . Performed By: #### L 503.5510 #### [facility] [address] [place], [address] Glucose [Mass/Vol] 120 mg/dL High 74-106 [facility] Comment on above: Order Comment: .1 Result Comment: Fast ing Glucose result from 100 to 125 mg/dL suggests IMPAIRED HOMEOSTASIS per A.D.A. criteria. Performed By: #### L 503.5510 #### [facility] [address] [place], [address] Potassium [Moles/Vol] 3.4 mmol/L Low 3.5-5.1 [facility] Comment on above: Order Comment: . Performed By: #### L 503.5510 #### [facility] [address] [place], [address] Sodium [Moles/Vol] 142 mmol/L Normal 136-145 [facility] Comment on above: Order Comment: . Performed By: #### L 503.5510 #### [facility] Laboratory [address] [place], [address] T PROT 5.3 g/dL Low 6.4-8.2 [facility] Comment on above: Order Comment: 211.1 Performed By: #### L 503.5510 #### [facility] Laboratory [address] [place], [address] Urea nitrogen [Mass/Vol] 16 mg/dL Normal 7-18 [facility] Comment on above: Order Comment: 211.1 Performed By: #### L 503.5510 #### [facility] [address] [place], [address] Hemoglobin A1con 07-09-2024 HbA1c (Bld) [Mass fraction] 5.5 % Normal 3.8-5.6 [facility] Comment on above: Order Comment: 211.1 Result Comment: Norm al < 5.7 % Prediabetic 5.7 - 6.4 % Diabetic >or= 6.5 % Please note range changes. Performed By: #### L 503.5510 #### [facility] Laboratory [address] [place], [address] [id number] 07-06-2024 [id number] Patient Choice Patient Name: MIKEL WINSTON Date of : [address] [facility] [id number] 07-04-2024 [id number] Next Site of Care Admission Date: 06/25/2024 05:04 PM Patient Name: MIKEL WINSTON Location: [address] CARDIAC U/[facility] [id number] A Date of : 1945 Placement Information Referral Type:Alf/SNF - New Referral ID:[id number] Provider Name:[employer] Address 1:[address] [place] [address] Address 2: City:[place] Selection Factors:Patient/Fami ly Choice State:[place] Normal [facility] AMMONIAon 07-04-2024 Ammonia (P) [Moles/Vol] 15 umol/L Normal 9-30 [facility] Comment on above: Performed By: #### L [id number], GVX962, [id number] #### Microbiology Manager: RUTH ANN BRAGG ([id number]) [facility] ([facility]) [address] [place] [address] CALCIUM, IONIZEDon 4 CALCIUM IONIZED 4.60 mg/dL Normal 4.30-5.20 [facility] Comment on above: Performed By: #### L [id number] #### Microbiology Manager: RUTH ANN BRAGG ([id number]) [facility] ([facility]) [address] PH, IONIZED CALCIUM 7.47 High 7.31-7.46 [facility] Comment on above: Performed By: #### L [id number] #### Microbiology Manager: RUTH ANN BRAGG ([phone]) [facility] ([facility]) [address] CBC W Auto Differential pane l (Bld)on 07-04-2024 Basophils (Bld) [#/Vol] 0 10*3/uL 0.0 - 0.2 10*3/uL [facility] Basophils/100 WBC (Bld) 0.5 % 0.0 - 2.0 % [facility] Eosinophils (Bld) [#/Vol] 0.4 10*3/uL 0. 0 - 0.5 10*3/uL [facility] Eosinophils/100 WBC (Bld) 6.3 % High 0.0 - 6.0 % [facility] Erythrocyte distribution width (RBC) [Ratio] 14.5 % 11.5 - 15.0 % [facility] Hematocrit (Bld) [Volume fraction] 25.2 % Low 35.0 - 47.0 % [facility] Hemoglobin (Bld) [Mass/Vol] 7.7 g/dL Low 11.7 - 16.0 g/dL [facility] Immature granulocytes (Bld) [#/Vol] 0 10*3/uL NINF - 0.1 10*3/uL [facility] Immature granulocytes/100 WBC (Bld) 0.5 % 0.0 - 2.0 % [facility] Interpretation and review of laboratory results Abnormal [facility] IPF 3 [facility] Lymphocytes (Bld) [#/Vol] 1.4 10*3/uL 1. 0 - 4.3 10*3/uL [facility] Lymphocytes/100 WBC (Bld) 24.4 % 15 .0 - 45.0 % [facility] MCH (RBC) [Entitic mass] 31 pg 26. 0 - 34.0 pg [facility] MCHC (RBC) [Mass/Vol] 30.6 % 30.5 - 36.0 % [facility] MCV (RBC) [Entitic vol] 101.6 fL High 77.0 - 99.0 fL [facility] Monocytes (Bld) [#/Vol] 1.2 10*3/uL High 0.0 - 0.9 10*3/uL [facility] Monocytes/100 WBC (Bld) 20.2 % High 5.0 - 13.0 % [facility] Neutrophils (Bld) [#/Vol] 2.7 10*3/uL 1. 8 - 7.5 10*3/uL [facility] Neutrophils/100 WBC (Bld) 48.1 % 38 .0 - 82.0 % [facility] Nucleated RBC/100 WBC (Bld) [Ratio] 0 % [facility] Platelet mean volume (Bld) [Entitic vol] 10.9 fL 9.0 - 12.7 fL [facility] Platelets (Bld) [#/Vol] 94 10*3/uL Low 140 - 440 10*3/uL [facility] RBC (Bld) [#/Vol] 2.48 10*6/uL Low 3.80 - 5.2 0 10*6/uL [facility] WBC (Bld) [#/Vol] 5.7 10*3/uL 3.6 - 10.7 10*3/uL [facility] CBC WITH AUTO DIFFERENTIALon 07-04-2024 Basophils (Bld) [#/Vol] 0.0 10*3/uL Normal 0.0-0.2 [facility] Comment on above: Performed By: #### L [id number] #### Microbiology Manager: RUTH ANN BRAGG ([phone]) [facility] [address] Basophils/100 WBC (Bld) 0.5 % Normal 0.0-2.0 [facility] Comment on above: Performed By: #### L [id number] #### Microbiology Manager: RUTH ANN BRAGG ([phone]) [facility] ([facility]) [address] [place] [address] [place] Eosinophils (Bld) [#/Vol] 0.4 10*3/uL Normal 0.0-0.5 [facility] Comment on above: Performed By: #### L [id number] #### Microbiology Manager: RUTH ANN BRAGG ([phone]) [facility] ([facility]) [address] [place] [address] [place] Eosinophils/100 WBC (Bld) 6.3 % High 0.0-6.0 [facility] Comment on above: Performed By: #### L [id number] #### Microbiology Manager: RUTH ANN BRAGG ([phone]) [facility] ([facility]) [address] [place] [address] Erythrocyte distribution width (RBC) [Ratio] 14.5 % Normal 11.5-15.0 [facility] Comment on above: Performed By: #### L [id number] #### Microbiology Manager: RUTHA NN BRAGG ([phone]) [facility] ([facility]) [address] Hematocrit (Bld) [Volume fraction] 25.2 % Low 35.0-47.0 [facility] Comment on above: Performed By: #### L [id number] #### Microbiology Manager: RUTH ANN BRAGG ([phone]) [facility] ([facility]) [address] [place] [address] Hemoglobin (Bld) [Mass/Vol] 7.7 g/dL Low 11.7-16.0 [facility] Comment on above: Performed By: #### L [id number] #### Microbiology Manager: RUT HANN BRAGG ([phone]) [facility] ([facility]) [address] [place] [address] IMMATURE GRANS % 0.5 % Normal 0.0-2.0 [facility] Comment on above: Performed By: #### L [id number] #### Microbiology Manager: RUTH ANN BRAGG ([phone]) [facility] ([facility]) [address] IMMATURE GRANS ABSOLUTE 0.0 10*3/uL Normal <0.1 [facility] Comment on above: Performed By: #### L [id number] #### Microbiology Manager: RUTH ANN BRAGG ([phone]) [facility] ([facility]) [address] IPF 3 Normal [facility] Comment on above: Performed By: #### L [id number] #### Microbiology Manager: RUTH ANN OBREGONDavidSHELTON ([id number]) [facility] ([facility]) [address] Lymphocytes (Bld) [#/Vol] 1.4 10*3/uL Normal 1.0-4.3 [facility] Comment on above: Performed By: #### L [id number] #### Microbiology Manager: RUTH ANN OBREGONDavidSHELTON ([id number]) [facility] ([facility]) [address] Lymphocytes/100 WBC (Bld) 24.4 % Normal 15.0-45.0 [facility] Comment on above: Performed By: #### L [id number] #### Microbiology Manager: RUTH ANN YEMI ([phone]) [facility] ([facility]) [address] [place] [address] MCH (RBC) [Entitic mass] 31.0 pg Normal 26.0-34.0 [facility] Comment on above: Performed By: #### L [id number] #### Microbiology Manager: RUTH ANN YEMI ([phone]) [facility] [place] ([facility]) [address] MCHC 30.6 % Normal 30.5-36.0 [facility] Comment on above: Performed By: #### L [id number] #### Microbiology Manager: RUTH ANN HERRONSHELTON ([phone]) [facility] ([facility]) [address] MCV (RBC) [Entitic vol] 101.6 fL High 77.0-99.0 [facility] Comment on above: Performed By: #### L [id number] #### Microbiology Manager: RUTH ANN HERRONSHELTON ([phone]) [facility] ([facility]) [address] Monocytes (Bld) [#/Vol] 1.2 10*3/uL High 0.0-0.9 [facility] Comment on above: Performed By: #### L [id number] #### Microbiology Manager: RUTH ANN BRAGG ([phone]) [facility] ([facility]) [address] Monocytes/100 WBC (Bld) 20.2 % High 5.0-13.0 [facility] Comment on above: Performed By: #### L [id number] #### Microbiology Manager: RUTH ANN BRAGG ([id number]) [facility] ([facility]) [address] NEUTROPHILS ABSOLUTE 2.7 10*3/uL Normal 1.8-7.5 [facility] Comment on above: Performed By: #### L [id number] #### Microbiology Manager: RUTH ANN BRAGG ([phone]) [facility] ([facility]) [address] Neutrophils/100 WBC (Bld) 48.1 % Normal 38.0-82.0 [facility] Comment on above: Performed By: #### L [id number] #### Microbiology Manager: RUTH ANN BRAGG ([phone]) [facility] ([facility]) [address] NRBC 0.0 /100 WBCs Normal 0.0-2.0 [facility] Comment on above: Performed By: #### L [id number] #### Microbiology Manager: RUTH ANN BRAGG ([id number]) [facility] ([facility]) [address] Platelet mean volume (Bld) [Entitic vol] 10.9 fL Normal 9.0-12.7 [facility] Comment on above: Performed By: #### L [id number] #### Microbiology Manager: RUTH ANN BRAGG ([phone]) [facility] ([facility]) [address] [place] [address] [place] Platelets (Bld) [#/Vol] 94 10*3/uL Low 140-440 [facility] Comment on above: Performed By: #### L [id number] #### Microbiology Manager: RUTH ANN BRAGG ([id number]) [facility] [place] ([facility]) [address] RBC (Bld) [#/Vol] 2.48 10*6/uL Low 3.80-5.20 [facility] Comment on above: Performed By: #### L [id number] #### Microbiology Manager: RUTH ANN BRAGG ([id number]) [facility] ([facility]) [address] WBC (Bld) [#/Vol] 5.7 10*3/uL Normal 3.6-10.7 [facility] Comment on above: Performed By: #### L [id number] #### Microbiology Manager: RUTH ANN BRAGG ([id number]) [facility] ([facility]) [address] COMPREHENSIVE METABOLIC PANE Smith 07-04-2024 Albumin [Mass/Vol] 2.3 g/dL Low 3.5-5.0 [facility] Comment on above: Performed By: #### L AB17, GRU507, [id number] #### Microbiology Manager: RUTH ANN BRAGG ([phone]) [facility] ([facility]) [address] ALP [Catalytic activity/Vol] 113 U/L Normal 38-126 [facility] Comment on above: Performed By: #### L AB17, RZQ155, [id number] #### Microbiology Manager: RUTH ANN BRAGG ([phone]) [facility] ([facility]) [address] ALT [Catalytic activity/Vol] 28 U/L Normal 0-34 [facility] Comment on above: Performed By: #### L AB17, [id number], [id number] #### Microbiology Manager: RUTH ANN BRAGG ([id number]) [facility] ([facility]) [address] Anion gap [Moles/Vol] -1 mmol/L Low 3-13 [facility] Comment on above: Performed By: #### L AB17, [id number], TUE166 #### Microbiology Manager: RUTH ANN BRAGG ([phone]) [facility] ([facility]) [address] AST [Catalytic activity/Vol] 49 U/L High 15-46 [facility] Comment on above: Performed By: #### L AB17, [id number], QZL371 #### Microbiology Manager: RUTH ANN BRAGG ([phone]) [facility] ([facility]) [address] Bilirubin [Mass/Vol] 0.6 mg/dL Normal 0.2-1.3 [facility] Comment on above: Performed By: #### L AB17, [id number], [id number] #### Microbiology Manager: RUTH ANN BRAGG ([id number]) [facility] ([facility]) [address] Calcium [Mass/Vol] 8.4 mg/dL Normal 8.4-10.4 [facility] Comment on above: Performed By: #### L AB17, [id number], RDW472 #### Microbiology Manager: RUTH ANN BRAGG ([phone]) [facility] ([facility]) [address] [place] [address] [place] Chloride [Moles/Vol] 110 mmol/L High 98-107 [facility] Comment on above: Performed By: #### L AB17, SSJ115, UTO462 #### Microbiology Manager: RUTH ANN BRAGG ([phone]) [facility] ([facility] [address] [place] [address] [place] CO2 [Moles/Vol] 28 mmol/L Normal 22-30 [facility] Comment on above: Performed By: #### L AB17, MCS495, MDB838 #### Microbiology Manager: RUTH ANN BRAGG ([phone]) [facility] ([facility]) [address] [place] [address] [place] Creatinine [Mass/Vol] 1.22 mg/dL High 0.52-1.04 [facility] Comment on above: Performed By: #### L AB17, [id number], [id number] #### Microbiology Manager: RUTH ANN BRAGG ([phone]) [facility] ([facility]) [address] GLOMERULAR FILTRATION RATE ML/MIN/1.73 SQ M.PREDICTED 45.5 mL/min/1.73m*2 Low >60.0 [facility] Comment on above: Result Comment: Calc ulation based on the Chronic Kidney Disease Epidemiology Collaboration (CKD-EPI) equation refit without adjustment for race Performed By: #### L AB17, [id number], COA950 #### Microbiology Manager: RUTH ANN BRAGG ([phone]) [facility] ([facility]) [address] Glucose [Mass/Vol] 98 mg/dL Normal 70-100 [facility] Comment on above: Performed By: #### L AB17, [id number], MHT415 #### Microbiology Manager: RUTH ANN BRAGG ([phone]) [facility] ([facility]) [address] Potassium [Moles/Vol] 3.8 mmol/L Normal 3.5-5.1 [facility] Comment on above: Performed By: #### L AB17, [id number], EFP462 #### Microbiology Manager: RUTH ANN BRAGG ([phone]) [facility] [address] Protein [Mass/Vol] 4.9 g/dL Low 6.3-8.2 [facility] Comment on above: Performed By: #### L AB17, AXR503, ZXH001 #### Microbiology Manager: RUTH ANN BRAGG ([phone]) [facility] ([facility]) [address] Sodium [Moles/Vol] 136 mmol/L Normal 135-145 [facility] Comment on above: Performed By: #### L AB17, DPE178, YHA758 #### Microbiology Manager: RUTH ANN BRAGG ([phone]) [facility] ([facility]) [address] Urea nitrogen [Mass/Vol] 20 mg/dL High 7-17 [facility] Comment on above: Performed By: #### L AB17, [id number], WIN115 #### Microbiology Manager: RUTH ANN BRAGG ([phone]) [facility] ([facility]) [address] Calcium.ionized [Moles/Vol]o n 07-04-2024 Calcium.ionized (Bld) [Moles/Vol] 4.6 mg/dL 4.30 - 5.20 mg/dL [facility] Interpretation and review of laboratory results Abnormal [facility] PH, IONIZED CALCIUM 7.47 High 7.31 - 7.46 [facility] Comprehensive metabolic 1998 panelon 07-04-2024 Albumin [Mass/Vol] 2.3 g/dL Low 3.5 - 5.0 g/dL [facility] ALP [Catalytic activity/Vol] 113 U/L 38 - 126 U/L [facility] ALT [Catalytic activity/Vol] 28 U/L 0 - 34 U/L [facility] Anion gap [Moles/Vol] -1 mmol/L Low 3 - 13 mmol/L [facility] AST [Catalytic activity/Vol] 49 U/L High 15 - 46 U/L [facility] Bilirubin [Mass/Vol] 0.6 mg/dL 0.2 - 1 .3 mg/dL [facility] Calcium [Mass/Vol] 8.4 mg/dL 8.4 - 10. 4 mg/dL [facility] Chloride [Moles/Vol] 110 mmol/L High 98 - 10 7 mmol/L [facility] CO2 [Moles/Vol] 28 mmol/L 22 - 30 mmol/L [facility] Creatinine [Mass/Vol] 1.22 mg/dL High 0.52 - 1.04 mg/dL [facility] GFR/1.73 sq M.predicted (S/P/Bld) [Vol rate/Area] 45.5 mL/min Low - PINF [facility] Glucose [Mass/Vol] 98 mg/dL 70 - 100 mg/dL [facility] Interpretation and review of laboratory results Abnormal [facility] Potassium [Moles/Vol] 3.8 mmol/L 3.5 - 5.1 mmol/L [facility] Protein [Mass/Vol] 4.9 g/dL Low 6.3 - 8.2 g/dL [facility] Sodium [Moles/Vol] 136 mmol/L 135 - 145 mmol/L [facility] Urea nitrogen [Mass/Vol] 20 mg/dL High 7 - 17 mg/dL [facility] Laboratory - Chemistry and C hemistry - challengeon 07-04-2024 Glucose [Mass/Vol] 104 mg/dL High 70 - 100 mg/dL [facility] Magnesium [Mass/Vol] 1.9 mg/dL 1.6 - 2 .3 mg/dL [facility] Ammonia (P) [Moles/Vol] 15 umol/L 9 - 30 umol/L [facility] MAGNESIUMon 07-04-2024 Magnesium [Mass/Vol] 1.9 mg/dL Normal 1.6-2.3 [facility] Comment on above: Performed By: #### L AB17, [id number], [id number] #### Microbiology Manager: RUTH ANN BRAGG ([phone]) [facility] ([facility]) [address] No Panel Informationon 07-04 Interpretation and review of laboratory results Abnormal [facility] Interpretation and review of laboratory results Normal [facility] Interpretation and review of laboratory results Normal [facility] PHOSPHORUSon 07-04-2024 Phosphate [Mass/Vol] 3.6 mg/dL Normal 2.5-4.5 [facility] Comment on above: Performed By: #### L AB17, [id number], RGM471 #### Microbiology Manager: RUTH ANN BRAGG ([id number]) [facility] [address] Phosphate [Moles/Vol]on 06-09 Phosphate [Mass/Vol] 3.6 mg/dL 2.5 - 4 .5 mg/dL [facility] Progress Noteon 07-04-2024 Progress Note Speech-Language Pathology SPEECH LANGUAGE PATHOLOGY [facility] Dysphagia Treatment Note Patient Name: Mikel [...] End: 07/13/24 Patient will demonstrate safe swallowing Intervention/techniq ues (Progressing) Start: 06/29/24 Expected End: 07/13/24 Patient will tolerate recommended food and liquid consistencies without clinical signs and symptoms of aspirations (Progressing) Start: 06/29/24 Expected End: 07/13/24 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 30on 07-03-2024 30 Problem: Knowledge Deficit Goal: Patient/family/careg iver demonstrates understanding of disease process, treatment plan, medications, and discharge instructions Outcome: Progressing Problem: Potential for Compromised Skin Integrity Goal: Skin Integrity is Maintained or Improved Outcome: Progressing Goal: Nutritional status is improving Outcome: Progressing Problem: Urinary Incontinence Goal: Perineal skin integrity is maintained or improved Outcome: Progressing Problem: Problem Interventions Goal: Promote nutritional intake Outcome: Progressing Normal [facility] 30 Problem: Knowledge Deficit Goal: Patient/family/careg iver demonstrates understanding of disease process, treatment plan, [...] My discharge needs are met Outcome: Progressing [facility] [id number] 07-03-2024 [id number] Discussed with primary team attending Dr. Gutierrez today. Patient's condition improving. Patient planned for discharge to SNF. Since patient, family have clearly established goals, our team will sign off at this time. Pricilla Steinberg MD 07/03/24 8:[address] 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 Rescheduled the transport for tomorrow 07/04 at 10;00 am. Voicemail message left for patients daughter to update her with tomorrows dc date and time. [facility] did try to reach out to [facility] rachid update. Normal [facility] [phone] [facility]. [id number] was entered into [facility] for [facility]F- FACILITY IS AWARE Normal [facility] AMMONIAon 07-03-2024 Ammonia (P) [Moles/Vol] 18 umol/L Normal 9-30 [facility] Comment on above: Performed By: #### L AB17, [id number], [id number] #### Microbiology Manager: RUTH ANN BRAGG ([phone]) [facility] ([facility]) [address] CALCIUM, IONIZEDon 4 CALCIUM IONIZED 4.50 mg/dL Normal 4.30-5.20 [facility] Comment on above: Performed By: #### L AB17, [id number], [id number] #### Microbiology Manager: RUTH ANN BRAGG ([phone]) [facility] ([facility]) [address] PH, IONIZED CALCIUM 7.46 Normal 7.31-7.46 [facility] Comment on above: Performed By: #### L AB17, [id number], [id number] #### Microbiology Manager: RUTH ANN BRAGG ([phone]) [facility] ([facility]) [address] CBC W Auto Differential pane l (Bld)on 07-03-2024 Basophils (Bld) [#/Vol] 0 10*3/uL 0.0 - 0.2 10*3/uL [facility] Basophils/100 WBC (Bld) 0.4 % 0.0 - 2.0 % [facility] Eosinophils (Bld) [#/Vol] 0.4 10*3/uL 0. 0 - 0.5 10*3/uL [facility] Eosinophils/100 WBC (Bld) 5.7 % 0.0 - 6.0 % [facility] Erythrocyte distribution width (RBC) [Ratio] 14.6 % 11.5 - 15.0 % [facility] Hematocrit (Bld) [Volume fraction] 23.3 % Low 35.0 - 47.0 % [facility] Hemoglobin (Bld) [Mass/Vol] 7.1 g/dL Low 11.7 - 16.0 g/dL [facility] Immature granulocytes (Bld) [#/Vol] 0 10*3/uL NINF - 0.1 10*3/uL [facility] Immature granulocytes/100 WBC (Bld) 0.6 % 0.0 - 2.0 % [facility] Interpretation and review of laboratory results Abnormal [facility] th IPF 3 [facility] Lymphocytes (Bld) [#/Vol] 1.4 10*3/uL 1. 0 - 4.3 10*3/uL [facility] Lymphocytes/100 WBC (Bld) 19.8 % 15 .0 - 45.0 % [facility] MCH (RBC) [Entitic mass] 30.9 pg 26. 0 - 34.0 pg [facility] MCHC (RBC) [Mass/Vol] 30.5 % 30.5 - 36.0 % [facility] MCV (RBC) [Entitic vol] 101.3 fL High 77.0 - 99.0 fL [facility] Monocytes (Bld) [#/Vol] 1.3 10*3/uL High 0.0 - 0.9 10*3/uL [facility] Monocytes/100 WBC (Bld) 18.5 % High 5.0 - 13.0 % [facility] Neutrophils (Bld) [#/Vol] 3.8 10*3/uL 1. 8 - 7.5 10*3/uL [facility] Neutrophils/100 WBC (Bld) 55 % 38 .0 - 82.0 % [facility] Nucleated RBC/100 WBC (Bld) [Ratio] 0 % [facility] Platelet mean volume (Bld) [Entitic vol] 11.5 fL 9.0 - 12.7 fL [facility] Platelets (Bld) [#/Vol] 84 10*3/uL Low 140 - 440 10*3/uL [facility] RBC (Bld) [#/Vol] 2.3 10*6/uL Low 3.80 - 5.2 0 10*6/uL [facility] WBC (Bld) [#/Vol] 6.9 10*3/uL 3.6 - 10.7 10*3/uL [facility] CBC WITH AUTO DIFFERENTIALon 07-03-2024 Basophils (Bld) [#/Vol] 0.0 10*3/uL Normal 0.0-0.2 [facility] Comment on above: Performed By: #### L AB17, [id number], [id number] #### Microbiology Manager: RUTH ANN BRAGG ([id number]) [facility] ([facility]) [address] Basophils/100 WBC (Bld) 0.4 % Normal 0.0-2.0 [facility] Comment on above: Performed By: #### L AB17, [id number], KTB259 #### Microbiology Manager: RUTH ANN BRAGG ([phone]) [facility] (SB[facility]) [address] Eosinophils (Bld) [#/Vol] 0.4 10*3/uL Normal 0.0-0.5 [facility] Comment on above: Performed By: #### L AB17, ONZ271, TMU511 #### Microbiology Manager: RTUH ANN BRAGG ([id number]) [facility] [address] Eosinophils/100 WBC (Bld) 5.7 % Normal 0.0-6.0 [facility] Comment on above: Performed By: #### L AB17, TPH291, XOD375 #### Microbiology Manager: RUTH ANN BRAGG ([phone]) [facility] (SB[facility]) [address] Erythrocyte distribution width (RBC) [Ratio] 14.6 % Normal 11.5-15.0 [facility] Comment on above: Performed By: #### L AB17, ENM883, QYN190 #### Microbiology Manager: RUTH ANN BRAGG ([phone]) [facility] ([facility]) [address] Hematocrit (Bld) [Volume fraction] 23.3 % Low 35.0-47.0 [facility] Comment on above: Performed By: #### L AB17, LRW113, HJH962 #### Microbiology Manager: RUTH ANN BRAGG ([phone]) [facility] ([facility]) [address] Hemoglobin (Bld) [Mass/Vol] 7.1 g/dL Low 11.7-16.0 [facility] Comment on above: Performed By: #### L AB17, PAJ289, [id number] #### Microbiology Manager: RUTH ANN BRAGG ([phone]) [facility] ([facility]) [address] IMMATURE GRANS % 0.6 % Normal 0.0-2.0 [facility] Comment on above: Performed By: #### L AB17, RML915, OLK609 #### Microbiology Manager: RUTH ANN BRAGG ([phone]) [facility] [address] IMMATURE GRANS ABSOLUTE 0.0 10*3/uL Normal <0.1 [facility] Comment on above: Performed By: #### L AB17, MQY914, DZX001 #### Microbiology Manager: RUTH ANN BRAGG ([phone]) [facility] ([facility]) [address] IPF 3 Normal [facility] Comment on above: Performed By: #### L AB17, WLO449, CMK563 #### Microbiology Manager: RUTH ANN BRAGG ([phone]) [facility] ([facility]) [address] Lymphocytes (Bld) [#/Vol] 1.4 10*3/uL Normal 1.0-4.3 [facility] Comment on above: Performed By: #### L AB17, TZB335, AIV840 #### Microbiology Manager: RUTH ANN BRAGG ([id number]) [facility] ([facility]) [address] [place] [address] [place] Lymphocytes/100 WBC (Bld) 19.8 % Normal 15.0-45.0 [facility] Comment on above: Performed By: #### L AB17, PBF457, [id number] #### Microbiology Manager: RUTH ANN BRAGG ([phone]) [facility] ([facility]) [address] MCH (RBC) [Entitic mass] 30.9 pg Normal 26.0-34.0 [facility] Comment on above: Performed By: #### L AB17, [id number], [id number] #### Microbiology Manager: RUTH ANN BRAGG ([id number]) [facility] ([facility]) [address] MCHC 30.5 % Normal 30.5-36.0 [facility] Comment on above: Performed By: #### L AB17, HBS454, KWE618 #### Microbiology Manager: RUTH ANN BRAGG ([phone]) [facility] ([facility]) [address] MCV (RBC) [Entitic vol] 101.3 fL High 77.0-99.0 [facility] Comment on above: Performed By: #### L AB17, BDQ283, JTY301 #### Microbiology Manager: RUTH ANN BRAGG ([phone]) [facility] ([facility]) [address] Monocytes (Bld) [#/Vol] 1.3 10*3/uL High 0.0-0.9 [facility] Comment on above: Performed By: #### L AB17, YHA037, XAR763 #### Microbiology Manager: RUTH ANN BRAGG ([phone]) [facility] [place] ([facility]) [address] [place] [address] [place] Monocytes/100 WBC (Bld) 18.5 % High 5.0-13.0 [facility] Comment on above: Performed By: #### L AB17, XEF422, JJD701 #### Microbiology Manager: RUTH ANN BRAGG ([phone]) [facility] ([facility]) [address] NEUTROPHILS ABSOLUTE 3.8 10*3/uL Normal 1.8-7.5 [facility] Comment on above: Performed By: #### L AB17, GKW924, DON009 #### Microbiology Manager: RUTH ANN BRAGG ([id number]) [facility] ([facility]) [address] Neutrophils/100 WBC (Bld) 55.0 % Normal 38.0-82.0 [facility] Comment on above: Performed By: #### L AB17, TOO031, BYC642 #### Microbiology Manager: RUTH ANN BRAGG ([phone]) [facility] ([facility]) [address] NRBC 0.0 /100 WBCs Normal 0.0-2.0 [facility] Comment on above: Performed By: #### L AB17, SQR881, IEH964 #### Microbiology Manager: RUTH ANN BRAGG ([id number]) [facility] ([facility]) [address] Platelet mean volume (Bld) [Entitic vol] 11.5 fL Normal 9.0-12.7 [facility] Comment on above: Performed By: #### L AB17, LEO565, NBO208 #### Microbiology Manager: RUTH ANN BRAGG ([id number]) [facility] ([facility]) [address] [place] [address] [place] Platelets (Bld) [#/Vol] 84 10*3/uL Low 140-440 [facility] Comment on above: Performed By: #### L AB17, JMP043, NYI673 #### Microbiology Manager: RUTH ANN BRAGG ([id number]) [facility] ([facility]) [address] [place] [address] [place] RBC (Bld) [#/Vol] 2.30 10*6/uL Low 3.80-5.20 [facility] Comment on above: Performed By: #### L AB17, RKV632, WTE334 #### Microbiology Manager: RUTH ANN BRAGG ([id number]) [facility] ([facility]) [address] WBC (Bld) [#/Vol] 6.9 10*3/uL Normal 3.6-10.7 [facility] Comment on above: Performed By: #### L AB17, [id number], GZM510 #### Microbiology Manager: RUTH ANN BRAGG ([id number]) [facility] ([facility]) [address] COMPREHENSIVE METABOLIC PANE Smith 07-03-2024 Albumin [Mass/Vol] 2.1 g/dL Low 3.5-5.0 [facility] Comment on above: Performed By: #### L [id number] #### Microbiology Manager: RUTH ANN BRAGG ([phone]) [facility] ([facility]) [address] ALP [Catalytic activity/Vol] 87 U/L Normal 38-126 [facility] Comment on above: Performed By: #### L [id number] #### Microbiology Manager: RUTH ANN BRAGG ([id number]) [facility] ([facility]) [address] ALT [Catalytic activity/Vol] 27 U/L Normal 0-34 [facility] Comment on above: Performed By: #### L [id number] #### Microbiology Manager: RUTH ANN BRAGG ([id number]) [facility] ([facility]) [address] Anion gap [Moles/Vol] -1 mmol/L Low 3-13 [facility] Comment on above: Performed By: #### L [id number] #### Microbiology Manager: RUTH ANN BRAGG ([id number]) [facility] ([facility]) [address] AST [Catalytic activity/Vol] 45 U/L Normal 15-46 [facility] Comment on above: Performed By: #### L [id number] #### Microbiology Manager: RUTH ANN RBAGG ([id number]) [facility] ([facility]) [address] Bilirubin [Mass/Vol] 0.6 mg/dL Normal 0.2-1.3 [facility] Comment on above: Performed By: #### L [id number] #### Microbiology Manager: RUTH ANN BRAGG ([id number]) [facility] ([facility]) [address] Calcium [Mass/Vol] 7.9 mg/dL Low 8.4-10.4 [facility] Comment on above: Performed By: #### L [id number] #### Microbiology Manager: RUTH ANN BRAGG ([id number]) [facility] ([facility]) [address] Chloride [Moles/Vol] 111 mmol/L High 98-107 [facility] Comment on above: Performed By: #### L [id number] #### Microbiology Manager: RUTH ANN BRAGG ([id number]) [facility] ([facility]) [address] CO2 [Moles/Vol] 26 mmol/L Normal 22-30 [facility] Comment on above: Performed By: #### L [id number] #### Microbiology Manager: RUTH ANN BRAGG ([id number]) [facility] ([facility]) [address] [place] [address] [place] Creatinine [Mass/Vol] 1.14 mg/dL High 0.52-1.04 [facility] Comment on above: Performed By: #### L [id number] #### Microbiology Manager: RUTH ANN BRAGG ([phone]) [facility] ([facility]) [address] GLOMERULAR FILTRATION RATE ML/MIN/1.73 SQ M.PREDICTED 49.4 mL/min/1.73m*2 Low >60.0 [facility] Comment on above: Result Comment: Calc ulation based on the Chronic Kidney Disease Epidemiology Collaboration (CKD-EPI) equation refit without adjustment for race Performed By: #### L [id number] #### Microbiology Manager: RUTH ANN BRAGG ([id number]) [facility] ([facility]) [address] Glucose [Mass/Vol] 106 mg/dL High 70-100 [facility] Comment on above: Performed By: #### L [id number] #### Microbiology Manager: RUTH ANN BRAGG ([id number]) [facility] ([facility]) [address] Potassium [Moles/Vol] 3.9 mmol/L Normal 3.5-5.1 [facility] Comment on above: Performed By: #### L [id number] #### Microbiology Manager: RUTH ANN BRAGG ([id number]) [facility] ([facility]) [address] Protein [Mass/Vol] 4.6 g/dL Low 6.3-8.2 [facility] Comment on above: Performed By: #### L [id number] #### Microbiology Manager: RUTH ANN BRAGG ([id number]) [facility] ([facility]) [address] Sodium [Moles/Vol] 136 mmol/L Normal 135-145 [facility] Comment on above: Performed By: #### L [id number] #### Microbiology Manager: RUTH ANN BRAGG ([id number]) [facility] ([facility]) [address] Urea nitrogen [Mass/Vol] 25 mg/dL High 7-17 [facility] Comment on above: Performed By: #### L [id number] #### Microbiology Manager: RUTH ANN BRAGG ([phone]) [facility] ([facility]) [address] Calcium.ionized [Moles/Vol]o n 07-03-2024 Calcium.ionized (Bld) [Moles/Vol] 4.5 mg/dL 4.30 - 5.20 mg/dL [facility] Interpretation and review of laboratory results Normal [facility] PH, IONIZED CALCIUM 7.46 7.31 - 7.46 [facility] Comprehensive metabolic 1998 panelon 07-03-2024 Albumin [Mass/Vol] 2.1 g/dL Low 3.5 - 5.0 g/dL [facility] ALP [Catalytic activity/Vol] 87 U/L 38 - 126 U/L [facility] ALT [Catalytic activity/Vol] 27 U/L 0 - 34 U/L [facility] Anion gap [Moles/Vol] -1 mmol/L Low 3 - 13 mmol/L [facility] AST [Catalytic activity/Vol] 45 U/L 15 - 46 U/L [facility] Bilirubin [Mass/Vol] 0.6 mg/dL 0.2 - 1 .3 mg/dL [facility] Calcium [Mass/Vol] 7.9 mg/dL Low 8.4 - 10. 4 mg/dL [facility] Chloride [Moles/Vol] 111 mmol/L High 98 - 10 7 mmol/L [facility] CO2 [Moles/Vol] 26 mmol/L 22 - 30 mmol/L [facility] Creatinine [Mass/Vol] 1.14 mg/dL High 0.52 - 1.04 mg/dL [facility] GFR/1.73 sq M.predicted (S/P/Bld) [Vol rate/Area] 49.4 mL/min Low - PINF [facility] Glucose [Mass/Vol] 106 mg/dL High 70 - 100 mg/dL [facility] Interpretation and review of laboratory results Abnormal [facility] Potassium [Moles/Vol] 3.9 mmol/L 3.5 - 5.1 mmol/L [facility] Protein [Mass/Vol] 4.6 g/dL Low 6.3 - 8.2 g/dL [facility] Sodium [Moles/Vol] 136 mmol/L 135 - 145 mmol/L [facility] Urea nitrogen [Mass/Vol] 25 mg/dL High 7 - 17 mg/dL [facility] Laboratory - Chemistry and C hemistry - challengeon 07-03-2024 Glucose [Mass/Vol] 205 mg/dL High 70 - 100 mg/dL [facility] Glucose [Mass/Vol] 210 mg/dL High 70 - 100 mg/dL [facility] Glucose [Mass/Vol] 177 mg/dL High 70 - 100 mg/dL [facility] Glucose [Mass/Vol] 173 mg/dL High 70 - 100 mg/dL [facility] Glucose [Mass/Vol] 105 mg/dL High 70 - 100 mg/dL [facility] Magnesium [Mass/Vol] 1.9 mg/dL 1.6 - 2 .3 mg/dL [facility] Ammonia (P) [Moles/Vol] 18 umol/L 9 - 30 umol/L [facility] MAGNESIUMon 07-03-2024 Magnesium [Mass/Vol] 1.9 mg/dL Normal 1.6-2.3 [facility] Comment on above: Performed By: #### L [id number] #### Microbiology Manager: RUTH ANN BRAGG ([phone]) [facility] ([facility]) [address] No Panel Informationon 07-03 Interpretation and review of laboratory results Abnormal [facility] Interpretation and review of laboratory results Abnormal [facility] Interpretation and review of laboratory results Abnormal [facility] Interpretation and review of laboratory results Abnormal [facility] Interpretation and review of laboratory results Abnormal [facility] Interpretation and review of laboratory results Normal [facility] Interpretation and review of laboratory results Normal [facility] Nursing Noteon 07-03-2024 Nursing Note Report called to [facility]. Pt transport is scheduled for 2:30pm. Normal [facility] PHOSPHORUSon 07-03-2024 Phosphate [Mass/Vol] 3.0 mg/dL Normal 2.5-4.5 [facility] Comment on above: Performed By: #### L [id number] #### Microbiology Manager: RUTH ANN BRAGG ([phone]) [facility] ([facility]) [address] Phosphate [Moles/Vol]on 06-09 Phosphate [Mass/Vol] 3 mg/dL 2.5 - 4 .5 mg/dL [facility] Progress Noteon 07-03-2024 Progress Note PHYSICAL THERAPY [facility] Treatment Note Name/MRN: Mikel Winston ([id number]) Date of : 1945 Age: 78 y.o. Room/Bed: B2-249/B2-249 A Visit #: 1 out of 5 [...] Jaramillo Fall Risk Score: 85 (High Risk) Precautions/Restrict ions: N/A Overall Cognitive Status: Exceptions - Memory: [...] Minutes: 16 Minutes (ther act x1) Sadia Navarro, PT [facility] Progress Note Speech-Language Pathology SPEECH LANGUAGE PATHOLOGY [facility] Dysphagia Treatment Note Patient Name: Mikel Winston Evaluation Date: 07/03/2024 Date of : 1945 Admission Date: 06/25/2024 5:04 PM Age: 78 y.o. Room/Bed: [facility] A Subjective Patient alert and cooperative. 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 [...] Jaramillo Fall Risk Score: 85 (High Risk) Precautions/Restrict ions: N/A Family/Caregiver Present: none Objective ADLs LE [...] legs off EOB but required min A PLUMBER PIPE FITTING to elevate trunk. Additional time required to [...] for out of bed mobility. (Progressing) Start: 06/09 (more content not included)... Normal [facility] 30on 07-02-2024 30 Problem: Knowledge Deficit Goal: Patient/family/careg iver demonstrates understanding of disease process, treatment plan, [...] My discharge needs are met Outcome: Progressing Normal [facility] [id number] 07-02-2024 [id number] Sent therapy notes to [facility] via [facility] per TCC request. Await review and response regarding ability to accept. TCC notified. Normal [facility] AMMONIAon 07-02-2024 Ammonia (P) [Moles/Vol] 14 umol/L Normal 9-30 S [facility] Comment on above: Performed By: #### L [id number] #### Microbiology Manager: RUTH ANN BRAGG ([phone]) [facility] ([facility]) [address] [place] [address] CALCIUM, IONIZEDon 4 CALCIUM IONIZED 4.30 mg/dL Normal 4.30-5.20 [facility] Comment on above: Performed By: #### L AB17, [id number], [id number] #### Microbiology Manager: RUTH ANN BRAGG ([phone]) [facility] ([facility]) [address] PH, IONIZED CALCIUM 7.56 High 7.31-7.46 [facility] Comment on above: Performed By: #### L AB17, [id number], [id number] #### Microbiology Manager: RUTH ANN BRAGG ([phone]) [facility] ([facility]) [address] CBC W Auto Differential pane l (Bld)on 07-02-2024 Basophils (Bld) [#/Vol] 0 10*3/uL 0.0 - 0.2 10*3/uL [facility] Basophils/100 WBC (Bld) 0.4 % 0.0 - 2.0 % [facility] Eosinophils (Bld) [#/Vol] 0.5 10*3/uL 0. 0 - 0.5 10*3/uL [facility] Eosinophils/100 WBC (Bld) 6.3 % High 0.0 - 6.0 % [facility] Erythrocyte distribution width (RBC) [Ratio] 14.6 % 11.5 - 15.0 % [facility] Hematocrit (Bld) [Volume fraction] 24.2 % Low 35.0 - 47.0 % [facility] Hemoglobin (Bld) [Mass/Vol] 7.6 g/dL Low 11.7 - 16.0 g/dL [facility] Immature granulocytes (Bld) [#/Vol] 0 10*3/uL NINF - 0.1 10*3/uL [facility] Immature granulocytes/100 WBC (Bld) 0.5 % 0.0 - 2.0 % [facility] Interpretation and review of laboratory results Abnormal [facility] IPF 4 [facility] Lymphocytes (Bld) [#/Vol] 1.2 10*3/uL 1. 0 - 4.3 10*3/uL [facility] Lymphocytes/100 WBC (Bld) 16.7 % 15 .0 - 45.0 % [facility] MCH (RBC) [Entitic mass] 31.5 pg 26. 0 - 34.0 pg [facility] MCHC (RBC) [Mass/Vol] 31.4 % 30.5 - 36.0 % [facility] MCV (RBC) [Entitic vol] 100.4 fL High 77.0 - 99.0 fL [facility] Monocytes (Bld) [#/Vol] 1.3 10*3/uL High 0.0 - 0.9 10*3/uL [facility] Monocytes/100 WBC (Bld) 17.3 % High 5.0 - 13.0 % [facility] Neutrophils (Bld) [#/Vol] 4.3 10*3/uL 1. 8 - 7.5 10*3/uL [facility] Neutrophils/100 WBC (Bld) 58.8 % 38 .0 - 82.0 % [facility] Nucleated RBC/100 WBC (Bld) [Ratio] 0 % [facility] Platelet mean volume (Bld) [Entitic vol] 11.3 fL 9.0 - 12.7 fL [facility] Platelets (Bld) [#/Vol] 84 10*3/uL Low 140 - 440 10*3/uL [facility] RBC (Bld) [#/Vol] 2.41 10*6/uL Low 3.80 - 5.2 0 10*6/uL [facility] WBC (Bld) [#/Vol] 7.3 10*3/uL 3.6 - 10.7 10*3/uL [facility] CBC WITH AUTO DIFFERENTIALon 07-02-2024 Basophils (Bld) [#/Vol] 0.0 10*3/uL Normal 0.0-0.2 [facility] Comment on above: Performed By: #### L AB17, [id number], [id number] #### Microbiology Manager: RUTH ANN BRAGG ([phone]) [facility] ([facility]) [address] Basophils/100 WBC (Bld) 0.4 % Normal 0.0-2.0 [facility] Comment on above: Performed By: #### L AB17, [id number], [id number] #### Microbiology Manager: RUTH ANN BRAGG ([id number]) [facility] ([facility]) [address] Eosinophils (Bld) [#/Vol] 0.5 10*3/uL Normal 0.0-0.5 [facility] Comment on above: Performed By: #### L AB17, [id number], [id number] #### Microbiology Manager: RUTH ANN PRITCHARDCER ([id number]) [facility] [address] Eosinophils/100 WBC (Bld) 6.3 % High 0.0-6.0 [facility] Comment on above: Performed By: #### L AB17, [id number], [id number] #### Microbiology Manager: RUTH ANN BRAGG ([phone]) [facility] [address] Erythrocyte distribution width (RBC) [Ratio] 14.6 % Normal 11.5-15.0 [facility] Comment on above: Performed By: #### L AB17, [id number], [id number] #### Microbiology Manager: RUTH ANN HERRONSHELTON ([id number]) [facility] ([facility]) [address] Hematocrit (Bld) [Volume fraction] 24.2 % Low 35.0-47.0 [facility] Comment on above: Performed By: #### L AB17, [id number], GRV220 #### Microbiology Manager: RUTH ANN BRAGG ([phone]) [facility] ([facility]) [address] Hemoglobin (Bld) [Mass/Vol] 7.6 g/dL Low 11.7-16.0 [facility] Comment on above: Performed By: #### L AB17, [id number], [id number] #### Microbiology Manager: RUTH ANN BRAGG ([id number]) [facility] [address] IMMATURE GRANS % 0.5 % Normal 0.0-2.0 [facility] Comment on above: Performed By: #### L AB17, [id number], [id number] #### Microbiology Manager: RUTH ANN BRAGG ([id number]) [facility] [address] IMMATURE GRANS ABSOLUTE 0.0 10*3/uL Normal <0.1 [facility] Comment on above: Performed By: #### L AB17, [id number], [id number] #### Microbiology Manager: RUTH ANN BRAGG ([phone]) [facility] ([facility]) [address] [place] [address] [place] IPF 4 Normal [facility] Comment on above: Performed By: #### L AB17, [id number], [id number] #### Microbiology Manager: RUTH ANN BRAGG ([phone]) [facility] ([facility]) [address] Lymphocytes (Bld) [#/Vol] 1.2 10*3/uL Normal 1.0-4.3 [facility] Comment on above: Performed By: #### L AB17, [id number], PXP607 #### Microbiology Manager: RUTH ANN BRAGG ([id number]) [facility] [address] Lymphocytes/100 WBC (Bld) 16.7 % Normal 15.0-45.0 [facility] Comment on above: Performed By: #### L AB17, [id number], [id number] #### Microbiology Manager: RUTH ANN BRAGG ([id number]) [facility] ([facility]) [address] MCH (RBC) [Entitic mass] 31.5 pg Normal 26.0-34.0 [facility] Comment on above: Performed By: #### L AB17, [id number], NUI601 #### Microbiology Manager: RUTH ANN BRAGG ([phone]) [facility] ([facility]) [address] MCHC 31.4 % Normal 30.5-36.0 [facility] Comment on above: Performed By: #### L AB17, [id number], [id number] #### Microbiology Manager: RUTH ANN BRAGG ([id number]) [facility] ([facility]) [address] MCV (RBC) [Entitic vol] 100.4 fL High 77.0-99.0 [facility] Comment on above: Performed By: #### L AB17, [id number], [id number] #### Microbiology Manager: RUTH ANN BRAGG ([id number]) [facility] [address] Monocytes (Bld) [#/Vol] 1.3 10*3/uL High 0.0-0.9 [facility] Comment on above: Performed By: #### L AB17, [id number], [id number] #### Microbiology Manager: RUTH ANN BRAGG ([id number]) [facility] ([facility]) [address] Monocytes/100 WBC (Bld) 17.3 % High 5.0-13.0 [facility] Comment on above: Performed By: #### Jayy AB17, [id number], [id number] #### Microbiology Manager: RUTH ANN BRAGG ([phone]) [facility] [place] ([facility] [address] NEUTROPHILS ABSOLUTE 4.3 10*3/uL Normal 1.8-7.5 [facility] Comment on above: Performed By: #### L AB17, QGV853, NCM800 #### Microbiology Manager: RUTH ANN BRAGG ([id number]) [facility] ([facility]) [address] Neutrophils/100 WBC (Bld) 58.8 % Normal 38.0-82.0 [facility] Comment on above: Performed By: #### L AB17, [id number], ZUR040 #### Microbiology Manager: RUTH ANN BRAGG ([phone]) [facility] [place] ([facility]) [address] [place] [address] [place] NRBC 0.0 /100 WBCs Normal 0.0-2.0 [facility] Comment on above: Performed By: #### L AB17, [id number], HAZ116 #### Microbiology Manager: RUTH ANN BRAGG ([id number]) [facility] ([facility]) [address] Platelet mean volume (Bld) [Entitic vol] 11.3 fL Normal 9.0-12.7 [facility] Comment on above: Performed By: #### L AB17, [id number], ZXQ431 #### Microbiology Manager: RUTH ANN BRAGG ([id number]) [facility] ([facility]) [address] Platelets (Bld) [#/Vol] 84 10*3/uL Low 140-440 [facility] Comment on above: Performed By: #### L AB17, [id number], CLB138 #### Microbiology Manager: RUTH ANN BRAGG ([phone]) [facility] ([facility]) [address] RBC (Bld) [#/Vol] 2.41 10*6/uL Low 3.80-5.20 [facility] Comment on above: Performed By: #### L AB17, [id number], JOT107 #### Microbiology Manager: RUTH ANN BRAGG ([id number]) [facility] ([facility]) [address] WBC (Bld) [#/Vol] 7.3 10*3/uL Normal 3.6-10.7 [facility] Comment on above: Performed By: #### L AB17, [id number], PRA660 #### Microbiology Manager: RUTH ANN BRAGG ([id number]) [facility] ([facility]) [address] COMPREHENSIVE METABOLIC PANE Smith 07-02-2024 Albumin [Mass/Vol] 2.4 g/dL Low 3.5-5.0 [facility] Comment on above: Performed By: #### L [id number] #### Microbiology Manager: RUTH ANN BRAGG ([id number]) [facility] ([facility]) [address] ALP [Catalytic activity/Vol] 89 U/L Normal 38-126 [facility] Comment on above: Performed By: #### L [id number] #### Microbiology Manager: RUTH ANN BRAGG ([id number]) [facility] ([facility]) [address] ALT [Catalytic activity/Vol] 29 U/L Normal 0-34 [facility] Comment on above: Performed By: #### L [id number] #### Microbiology Manager: RUTH ANN BRAGG ([id number]) [facility] ([facility]) [address] Anion gap [Moles/Vol] 0 mmol/L Low 3-13 [facility] Comment on above: Performed By: #### L [id number] #### Microbiology Manager: RUTH ANN BRAGG ([id number]) [facility] ([facility]) [address] AST [Catalytic activity/Vol] 50 U/L High 15-46 [facility] Comment on above: Performed By: #### L [id number] #### Microbiology Manager: RUTH ANN BRAGG ([id number]) [facility] ([facility]) [address] Bilirubin [Mass/Vol] 0.8 mg/dL Normal 0.2-1.3 [facility] Comment on above: Performed By: #### L [id number] #### Microbiology Manager: RUTH ANN BRAGG ([id number]) [facility] ([facility]) [address] Calcium [Mass/Vol] 8.0 mg/dL Low 8.4-10.4 [facility] Comment on above: Performed By: #### L [id number] #### Microbiology Manager: RUTH ANN BRAGG ([id number]) [facility] ([facility]) [address] Chloride [Moles/Vol] 110 mmol/L High 98-107 [facility] Comment on above: Performed By: #### L [id number] #### Microbiology Manager: RUTH ANN BRAGG ([id number]) [facility] ([facility]) [address] [place] [address] [place] CO2 [Moles/Vol] 25 mmol/L Normal 22-30 [facility] Comment on above: Performed By: #### L [id number] #### Microbiology Manager: RUTH ANN BRAGG ([id number]) [facility] ([facility]) [address] Creatinine [Mass/Vol] 1.11 mg/dL High 0.52-1.04 [facility] Comment on above: Performed By: #### L [id number] #### Microbiology Manager: RUTH ANN BRAGG ([id number]) [facility] [address] GLOMERULAR FILTRATION RATE ML/MIN/1.73 SQ M.PREDICTED 51.0 mL/min/1.73m*2 Low >60.0 [facility] Comment on above: Result Comment: Calc ulation based on the Chronic Kidney Disease Epidemiology Collaboration (CKD-EPI) equation refit without adjustment for race Performed By: #### L [id number] #### Microbiology Manager: RUTH ANN BRAGG ([id number]) [facility] [address] Glucose [Mass/Vol] 113 mg/dL High 70-100 [facility] Comment on above: Performed By: #### L [id number] #### Microbiology Manager: RUTH ANN BRAGG ([id number]) [facility] [address] [place] [address] [place] Potassium [Moles/Vol] 3.9 mmol/L Normal 3.5-5.1 [facility] Comment on above: Performed By: #### L [id number] #### Microbiology Manager: RUTH ANN BRAGG ([phone]) [facility] ([facility]) [address] [place] [address] [place] Protein [Mass/Vol] 5.0 g/dL Low 6.3-8.2 [facility] Comment on above: Performed By: #### L [id number] #### Microbiology Manager: RUTH ANN BRAGG ([id number]) [facility] ([facility]) [address] Sodium [Moles/Vol] 135 mmol/L Normal 135-145 [facility] Comment on above: Performed By: #### L [id number] #### Microbiology Manager: RUTH ANN BRAGG ([id number]) [facility] ([facility]) [address] Urea nitrogen [Mass/Vol] 29 mg/dL High 7-17 [facility] Comment on above: Performed By: #### L [id number] #### Microbiology Manager: RUTH ANN BRAGG ([phone]) [facility] ([facility]) [address] Calcium.ionized [Moles/Vol]o n 07-02-2024 Calcium.ionized (Bld) [Moles/Vol] 4.3 mg/dL 4.30 - 5.20 mg/dL [facility] Interpretation and review of laboratory results Abnormal [facility] PH, IONIZED CALCIUM 7.56 High 7.31 - 7.46 [facility] Comprehensive metabolic 1998 panelon 07-02-2024 Albumin [Mass/Vol] 2.4 g/dL Low 3.5 - 5.0 g/dL [facility] ALP [Catalytic activity/Vol] 89 U/L 38 - 126 U/L [facility] ALT [Catalytic activity/Vol] 29 U/L 0 - 34 U/L [facility] Anion gap [Moles/Vol] 0 mmol/L Low 3 - 13 mmol/L [facility] AST [Catalytic activity/Vol] 50 U/L High 15 - 46 U/L [facility] Bilirubin [Mass/Vol] 0.8 mg/dL 0.2 - 1 .3 mg/dL [facility] Calcium [Mass/Vol] 8 mg/dL Low 8.4 - 10. 4 mg/dL [facility] Chloride [Moles/Vol] 110 mmol/L High 98 - 10 7 mmol/L [facility] CO2 [Moles/Vol] 25 mmol/L 22 - 30 mmol/L [facility] Creatinine [Mass/Vol] 1.11 mg/dL High 0.52 - 1.04 mg/dL [facility] GFR/1.73 sq M.predicted (S/P/Bld) [Vol rate/Area] 51 mL/min Low - PINF [facility] Glucose [Mass/Vol] 113 mg/dL High 70 - 100 mg/dL [facility] Interpretation and review of laboratory results Abnormal [facility] Potassium [Moles/Vol] 3.9 mmol/L 3.5 - 5.1 mmol/L [facility] Protein [Mass/Vol] 5 g/dL Low 6.3 - 8.2 g/dL [facility] Sodium [Moles/Vol] 135 mmol/L 135 - 145 mmol/L [facility] Urea nitrogen [Mass/Vol] 29 mg/dL High 7 - 17 mg/dL [facility] Laboratory - Chemistry and C hemistry - challengeon 07-02-2024 Glucose [Mass/Vol] 179 mg/dL High 70 - 100 mg/dL [facility] Glucose [Mass/Vol] 219 mg/dL High 70 - 100 mg/dL [facility] Glucose [Mass/Vol] 184 mg/dL High 70 - 100 mg/dL [facility] Glucose [Mass/Vol] 118 mg/dL High 70 - 100 mg/dL [facility] Ammonia (P) [Moles/Vol] 14 umol/L 9 - 30 umol/L [facility] Magnesium [Mass/Vol] 1.9 mg/dL 1.6 - 2 .3 mg/dL [facility] MAGNESIUMon 07-02-2024 Magnesium [Mass/Vol] 1.9 mg/dL Normal 1.6-2.3 [facility] Comment on above: Performed By: #### L [id number] #### Microbiology Manager: RUTH ANN BRAGG ([phone]) [facility] ([facility]) [address] [place] [address] No Panel Informationon 07-02 Interpretation and review of laboratory results Abnormal [facility] Interpretation and review of laboratory results Abnormal [facility] Interpretation and review of laboratory results Abnormal [facility] Interpretation and review of laboratory results Abnormal [facility] Interpretation and review of laboratory results Normal [facility] Interpretation and review of laboratory results Normal [facility] Nursing Noteon 07-02-2024 Nursing Note Patient was informed that her catheter needed to be removed per Doctors order. Patient currently has family visiting and is eating dinner and would like to wait until later. Patient was asked to call the nurse when she was ready for it to be removed. Normal [facility] PHOSPHORUSon 07-02-2024 Phosphate [Mass/Vol] 2.9 mg/dL Normal 2.5-4.5 [facility] Comment on above: Performed By: #### L [id number] #### Microbiology Manager: RUTH ANN BRAGG ([phone]) [facility] ([facility]) [address] [place], [place] [id number] [facility] Phosphate [Moles/Vol]on 06-09 Phosphate [Mass/Vol] 2.9 mg/dL 2.5 - 4 .5 mg/dL [facility] Progress Noteon 07-02-2024 Progress Note Spiritual Care Note [facility] Palliative Care Patient Name:Mikel Winston Chief Complaint: [...] to patient and people surrounding her. Her software build engineer was visiting with them. Follow up PRN. Is there spiritual distress? Unknown Comment: Interventions: Establish rapport . Care Plan: Care plan PRN . Follow Up: PRN. Debriefed: with computer systems architect team. Mellissa Vega 07/02/24 Normal [facility] Progress Note Speech-Language Pathology SPEECH LANGUAGE PATHOLOGY [facility] Dysphagia Treatment Note Patient Name: Mikel Winston Evaluation Date: 07/02/2024 Date of : 1945 Admission Date: 06/25/2024 5:04 PM Age: 78 y.o. Room/Bed: [facility] A Subjective Patient alert and cooperative. 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 AMMONIAon 07-01-2024 Ammonia (P) [Moles/Vol] 46 umol/L High 9-30 [facility] Comment on above: Performed By: #### L AB17, [id number], [id number] #### Microbiology Manager: RUTH ANN BRAGG ([id number]) [facility] ([facility]) [address] CALCIUM, IONIZEDon CALCIUM IONIZED 4.60 mg/dL Normal 4.30-5.20 [facility] Comment on above: Performed By: #### L AB17, [id number], [id number] #### Microbiology Manager: RUTH ANN BRAGG ([phone]) [facility] ([facility]) [address] PH, IONIZED CALCIUM 7.46 Normal 7.31-7.46 [facility] Comment on above: Performed By: #### L AB17, [id number], [id number] #### Microbiology Manager: RUTH ANN BRAGG ([phone]) [facility] (SBHLAB) [address] CBC W Auto Differential pane l (Bld)Ordered By: Kathya Dotson on 07-01-2024 Basophils (Bld) [#/Vol] 0 10*3/uL 0.0 - 0.2 10*3/uL [facility] Basophils/100 WBC (Bld) 0.4 % 0.0 - 2.0 % [facility] Eosinophils (Bld) [#/Vol] 0.6 10*3/uL High 0. 0 - 0.5 10*3/uL [facility] Eosinophils/100 WBC (Bld) 7.2 % High 0.0 - 6.0 % [facility] Erythrocyte distribution width (RBC) [Ratio] 14.9 % 11.5 - 15.0 % [facility] Hematocrit (Bld) [Volume fraction] 25.8 % Low 35.0 - 47.0 % [facility] Hemoglobin (Bld) [Mass/Vol] 7.9 g/dL Low 11.7 - 16.0 g/dL [employer] [employer] Immature granulocytes (Bld) [#/Vol] 0.1 10*3/uL High NINF - 0.1 10*3/uL [facility] Immature granulocytes/100 WBC (Bld) 0.8 % 0.0 - 2.0 % [facility] Interpretation and review of laboratory results Abnormal [facility] th Lymphocytes (Bld) [#/Vol] 1.4 10*3/uL 1. 0 - 4.3 10*3/uL [facility] Lymphocytes/100 WBC (Bld) 18.4 % 15 .0 - 45.0 % [facility] MCH (RBC) [Entitic mass] 31.5 pg 26. 0 - 34.0 pg [facility] MCHC (RBC) [Mass/Vol] 30.6 % 30.5 - 36.0 % [facility] MCV (RBC) [Entitic vol] 102.8 fL High 77.0 - 99.0 fL [facility] Monocytes (Bld) [#/Vol] 1.2 10*3/uL High 0.0 - 0.9 10*3/uL [facility] Monocytes/100 WBC (Bld) 15 % High 5.0 - 13.0 % [facility] Neutrophils (Bld) [#/Vol] 4.5 10*3/uL 1. 8 - 7.5 10*3/uL [facility] Neutrophils/100 WBC (Bld) 58.2 % 38 .0 - 82.0 % [facility] Nucleated RBC/100 WBC (Bld) [Ratio] 0 % [facility] Platelet mean volume (Bld) [Entitic vol] 11.4 fL 9.0 - 12.7 fL [facility] Platelets (Bld) [#/Vol] 86 10*3/uL Low 140 - 440 10*3/uL [facility] RBC (Bld) [#/Vol] 2.51 10*6/uL Low 3.80 - 5.2 0 10*6/uL [facility] WBC (Bld) [#/Vol] 7.7 10*3/uL 3.6 - 10.7 10*3/uL [facility] CBC WITH AUTO DIFFERENTIALon 07-01-2024 Basophils (Bld) [#/Vol] 0.0 10*3/uL Normal 0.0-0.2 [facility] Comment on above: Performed By: #### L AB17, [id number], [id number] #### Microbiology Manager: RUTH ANN BRAGG ([phone]) [facility] ([facility]) [address] Basophils/100 WBC (Bld) 0.4 % Normal 0.0-2.0 [facility] Comment on above: Performed By: #### L AB17, [id number], RUR775 #### Microbiology Manager: RUTH ANN BRAGG ([phone]) [facility] [place] ([facility] [address] Eosinophils (Bld) [#/Vol] 0.6 10*3/uL High 0.0-0.5 [facility] Comment on above: Performed By: #### L AB17, [id number], [id number] #### Microbiology Manager: RUTH ANN BRAGG ([phone]) [facility] ([facility] [address] Eosinophils/100 WBC (Bld) 7.2 % High 0.0-6.0 [facility] Comment on above: Performed By: #### L AB17, [id number], [id number] #### Microbiology Manager: RUTH ANN BRAGG ([phone]) [facility] (SB[facility]) [address] Erythrocyte distribution width (RBC) [Ratio] 14.9 % Normal 11.5-15.0 [facility] Comment on above: Performed By: #### L AB17, [id number], [id number] #### Microbiology Manager: RUTH ANN BRAGG ([phone]) [facility] ([facility]) [address] Hematocrit (Bld) [Volume fraction] 25.8 % Low 35.0-47.0 [facility] Comment on above: Performed By: #### L AB17, [id number], [id number] #### Microbiology Manager: RUTH ANN BRAGG ([id number]) [facility] [place] ([facility]) [address] Hemoglobin (Bld) [Mass/Vol] 7.9 g/dL Low 11.7-16.0 [facility] Comment on above: Performed By: #### L AB17, [id number], [id number] #### Microbiology Manager: RUTH ANN BRAGG ([phone]) [facility] [address] IMMATURE GRANS % 0.8 % Normal 0.0-2.0 [facility] Comment on above: Performed By: #### L AB17, [id number], QDK631 #### Microbiology Manager: RUTH ANN BRAGG ([phone]) [facility] [address] IMMATURE GRANS ABSOLUTE 0.1 10*3/uL High <0.1 [facility] Comment on above: Performed By: #### L AB17, [id number], [id number] #### Microbiology Manager: RUTH ANN BRAGG ([phone]) [facility] [address] Lymphocytes (Bld) [#/Vol] 1.4 10*3/uL Normal 1.0-4.3 [facility] Comment on above: Performed By: #### L AB17, [id number], TFU349 #### Microbiology Manager: RUTH ANN BRAGG ([phone]) [facility] [address] Lymphocytes/100 WBC (Bld) 18.4 % Normal 15.0-45.0 [facility] Comment on above: Performed By: #### L AB17, HNT730, JAP798 #### Microbiology Manager: RUTH ANN BRAGG ([phone]) [facility] [address] MCH (RBC) [Entitic mass] 31.5 pg Normal 26.0-34.0 [facility] Comment on above: Performed By: #### L AB17, TYQ194, NJO802 #### Microbiology Manager: RUTH ANN BRAGG ([phone]) [facility] [address] MCHC 30.6 % Normal 30.5-36.0 [facility] Comment on above: Performed By: #### L AB17, ZQS399, TEV450 #### Microbiology Manager: RUTH ANN BRAGG ([id number]) [facility] (SBHLAB) [address] MCV (RBC) [Entitic vol] 102.8 fL High 77.0-99.0 [facility] Comment on above: Performed By: #### L AB17, [id number], PZA377 #### Microbiology Manager: RUTH ANN BRAGG ([phone]) [facility] (SB[facility]) [address] Monocytes (Bld) [#/Vol] 1.2 10*3/uL High 0.0-0.9 [facility] Comment on above: Performed By: #### L AB17, [id number], LJO137 #### Microbiology Manager: RUTH ANN BRAGG ([phone]) [facility] (SB[facility]) [address] Monocytes/100 WBC (Bld) 15.0 % High 5.0-13.0 [facility] Comment on above: Performed By: #### L AB17, [id number], [id number] #### Microbiology Manager: RUTH ANN BRAGG ([phone]) [facility] (SB[facility]) [address] NEUTROPHILS ABSOLUTE 4.5 10*3/uL Normal 1.8-7.5 [facility] Comment on above: Performed By: #### L AB17, IKT900, SMR114 #### Microbiology Manager: RUTH ANN BRAGG ([phone]) [facility] [place] ([facility]) [address] [place] [address] [place] Neutrophils/100 WBC (Bld) 58.2 % Normal 38.0-82.0 [facility] Comment on above: Performed By: #### L AB17, CAI621, KMI312 #### Microbiology Manager: RUTH ANN BRAGG ([phone]) [facility] (SBHLAB) [address] NRBC 0.0 /100 WBCs Normal 0.0-2.0 [facility] Comment on above: Performed By: #### L AB17, WDI680, RPR609 #### Microbiology Manager: RUTH ANN BRAGG ([phone]) [facility] (SB[facility]) [address] Platelet mean volume (Bld) [Entitic vol] 11.4 fL Normal 9.0-12.7 [facility] Comment on above: Performed By: #### L AB17, [id number], FBU900 #### Microbiology Manager: RUTH ANN BRAGG ([phone]) [facility] ([facility]) [address] Platelets (Bld) [#/Vol] 86 10*3/uL Low 140-440 [facility] Comment on above: Performed By: #### L AB17, CAR964, GWW342 #### Microbiology Manager: RUTH ANN BRAGG ([phone]) [facility] ([facility]) [address] RBC (Bld) [#/Vol] 2.51 10*6/uL Low 3.80-5.20 [facility] Comment on above: Performed By: #### L AB17, IQH173, PSD968 #### Microbiology Manager: RUTH ANN BRAGG ([phone]) [facility] (SB[facility]) [address] WBC (Bld) [#/Vol] 7.7 10*3/uL Normal 3.6-10.7 [facility] Comment on above: Performed By: #### L AB17, [id number], BRG865 #### Microbiology Manager: RUTH ANN BRAGG ([id number]) [facility] (SB[facility]) [address] COMPREHENSIVE METABOLIC PANE Simth 07-01-2024 Albumin [Mass/Vol] 2.3 g/dL Low 3.5-5.0 [facility] Comment on above: Performed By: #### L AB17, OAU222, APJ586 #### Microbiology Manager: RUTH ANN BRAGG ([id number]) [facility] (SBHLAB) [address] ALP [Catalytic activity/Vol] 93 U/L Normal 38-126 [facility] Comment on above: Performed By: #### L AB17, [id number], GQG061 #### Microbiology Manager: RUTH ANN BRAGG ([id number]) [facility] (SB[facility]) [address] ALT [Catalytic activity/Vol] 28 U/L Normal 0-34 [facility] Comment on above: Performed By: #### L AB17, ZTF605, SHD612 #### Microbiology Manager: RUTH ANN BRAGG ([phone]) [facility] (SB[facility]) [address] Anion gap [Moles/Vol] 2 mmol/L Low 3-13 [facility] Comment on above: Performed By: #### L AB17, LND189, ZSN279 #### Microbiology Manager: RUTH ANN BRAGG ([phone]) [facility] ([facility]) [address] AST [Catalytic activity/Vol] 51 U/L High 15-46 [facility] Comment on above: Performed By: #### L AB17, [id number], [id number] #### Microbiology Manager: RUTH ANN BRAGG ([phone]) [facility] (SB[facility]) [address] [place] [address] [place] Bilirubin [Mass/Vol] 0.7 mg/dL Normal 0.2-1.3 [facility] Comment on above: Performed By: #### L AB17, FED308, BCK569 #### Microbiology Manager: RUTH ANN BRAGG ([phone]) [facility] (SB[facility]AB) [address] Calcium [Mass/Vol] 8.1 mg/dL Low 8.4-10.4 [facility] Comment on above: Performed By: #### L AB17, LIU712, KZU975 #### Microbiology Manager: RUTH ANN BRAGG ([id number]) [facility] (SB[facility]) [address] Chloride [Moles/Vol] 113 mmol/L High 98-107 [facility] Comment on above: Performed By: #### L AB17, [id number], CGB229 #### Microbiology Manager: RUTH ANN BRAGG ([phone]) [facility] (HLAB) [address] [place] [address] [place] CO2 [Moles/Vol] 25 mmol/L Normal 22-30 [facility] Comment on above: Performed By: #### L AB17, QAO229, EZO285 #### Microbiology Manager: RUTH ANN BRAGG ([id number]) [facility] ([facility]) [address] Creatinine [Mass/Vol] 1.18 mg/dL High 0.52-1.04 [facility] Comment on above: Performed By: #### L AB17, VPZ859, IWA943 #### Microbiology Manager: RUTH ANN BRAGG ([id number]) [facility] ([facility]) [address] [place] [address] [place] GLOMERULAR FILTRATION RATE ML/MIN/1.73 SQ M.PREDICTED 47.4 mL/min/1.73m*2 Low >60.0 [facility] Comment on above: Result Comment: Calc ulation based on the Chronic Kidney Disease Epidemiology Collaboration (CKD-EPI) equation refit without adjustment for race Performed By: #### L AB17, UMN546, ETO341 #### Microbiology Manager: RUTH ANN BRAGG ([id number]) [facility] [address] [place] [address] [place] Glucose [Mass/Vol] 143 mg/dL High 70-100 [facility] Comment on above: Performed By: #### L AB17, [id number], DLH827 #### Microbiology Manager: RUTH ANN BRAGG ([phone]) [facility] (SB[facility]) [address] Potassium [Moles/Vol] 3.7 mmol/L Normal 3.5-5.1 [facility] Comment on above: Performed By: #### L AB17, FJH793, KQS382 #### Microbiology Manager: RUTH ANN BRAGG ([phone]) [facility] ([facility]) [address] Protein [Mass/Vol] 5.0 g/dL Low 6.3-8.2 [facility] Comment on above: Performed By: #### L AB17, YHY973, WCG873 #### Microbiology Manager: RUTH ANN BRAGG ([phone]) [facility] ([facility]) [address] Sodium [Moles/Vol] 140 mmol/L Normal 135-145 [facility] Comment on above: Performed By: #### L AB17, AQM356, SXM202 #### Microbiology Manager: RUTH ANN BRAGG ([phone]) [facility] ([facility]) [address] Urea nitrogen [Mass/Vol] 37 mg/dL High 02-21 [facility] Comment on above: Performed By: #### L AB17, TMU257, GXV845 #### Microbiology Manager: RUTH ANN BRAGG ([phone]) [facility] (SB[facility]) [address] Calcium.ionized [Moles/Vol]o n 07-01-2024 Calcium.ionized (Bld) [Moles/Vol] 4.6 mg/dL 4.30 - 5.20 mg/dL [facility] Interpretation and review of laboratory results Normal [facility] PH, IONIZED CALCIUM 7.46 7.31 - 7.46 [facility] Comprehensive metabolic 1998 panelon 07-01-2024 Albumin [Mass/Vol] 2.3 g/dL Low 3.5 - 5.0 g/dL [facility] ALP [Catalytic activity/Vol] 93 U/L 38 - 126 U/L [facility] ALT [Catalytic activity/Vol] 28 U/L 0 - 34 U/L [facility] Anion gap [Moles/Vol] 2 mmol/L Low 3 - 13 mmol/L [facility] AST [Catalytic activity/Vol] 51 U/L High 15 - 46 U/L [facility] Bilirubin [Mass/Vol] 0.7 mg/dL 0.2 - 1 .3 mg/dL [facility] Calcium [Mass/Vol] 8.1 mg/dL Low 8.4 - 10. 4 mg/dL [facility] Chloride [Moles/Vol] 113 mmol/L High 98 - 10 7 mmol/L [facility] CO2 [Moles/Vol] 25 mmol/L 22 - 30 mmol/L [facility] Creatinine [Mass/Vol] 1.18 mg/dL High 0.52 - 1.04 mg/dL [facility] GFR/1.73 sq M.predicted (S/P/Bld) [Vol rate/Area] 47.4 mL/min Low - PINF [facility] Glucose [Mass/Vol] 143 mg/dL High 70 - 100 mg/dL [facility] Interpretation and review of laboratory results Abnormal [facility] Potassium [Moles/Vol] 3.7 mmol/L 3.5 - 5.1 mmol/L [facility] Protein [Mass/Vol] 5 g/dL Low 6.3 - 8.2 g/dL [facility] Sodium [Moles/Vol] 140 mmol/L 135 - 145 mmol/L [facility] Urea nitrogen [Mass/Vol] 37 mg/dL High 7 - 17 mg/dL [facility] LEGIONELLA AND STREPTOCOCCUS URINE ANTIGENon 07-01-2024 LEGIONELLA AND STREPTOCOCCUS URINE ANTIGEN LEGIONELLA PNEUMOPHILA URINE ANTIGEN Reference Not Detected Not Detected STREPTOCOCCUS PNEUMONIAE URINE ANTIGEN Reference Not Detected Not Detected ORDER COMMENTS: Methodology: Lateral flow enzyme immunoassay This assay is approved for detection of antigens to Streptococcus pneumoniae and Legionella pneumophila serogroup 1; however, other L. pneumophila serogroups may also be detected. Normal [facility] Comment on above: Performed By: #### L AB17, [id number], [id number] #### Microbiology Manager: RUTH ANN BRAGG ([phone]) [facility]) [address] [place] [address] Laboratory - Chemistry and C hemistry - challengeon 07-01-2024 Glucose [Mass/Vol] 159 mg/dL High 70 - 100 mg/dL [facility] Glucose [Mass/Vol] 194 mg/dL High 70 - 100 mg/dL [facility] Glucose [Mass/Vol] 172 mg/dL High 70 - 100 mg/dL [facility] Glucose [Mass/Vol] 133 mg/dL High 70 - 100 mg/dL [facility] Magnesium [Mass/Vol] 2 mg/dL 1.6 - 2 .3 mg/dL [facility] Ammonia (P) [Moles/Vol] 46 umol/L High 9 - 30 umol/L [facility] MAGNESIUMon 07-01-2024 Magnesium [Mass/Vol] 2.0 mg/dL Normal 1.6-2.3 [facility] Comment on above: Performed By: #### L AB17, [id number], [id number] #### Microbiology Manager: RUTH ANN BRAGG ([phone]) [facility] ([facility]) [address] No Panel Informationon 07-01 Interpretation and review of laboratory results Abnormal [facility] Interpretation and review of laboratory results Abnormal [facility] Interpretation and review of laboratory results Abnormal [facility] Interpretation and review of laboratory results Abnormal [facility] Interpretation and review of laboratory results Normal [facility] Interpretation and review of laboratory results Abnormal [facility] No Panel InformationOrdered By: Jeancarlos Johnson on 07-01-2024 Interpretation and review of laboratory results Normal [facility] Legionella pneumophila Ag Not detected No t Detected [facility] Streptococcus pneumoniae Ag Not detected Not Detected [facility] PHOSPHORUSon 07-01-2024 Phosphate [Mass/Vol] 2.7 mg/dL Normal 2.5-4.5 [facility] Comment on above: Performed By: #### L AB17, [id number], [id number] #### Microbiology Manager: RUTH ANN BRAGG ([phone]) [facility] [address] Phosphate [Moles/Vol]on 06-09 Phosphate [Mass/Vol] 2.7 mg/dL 2.5 - 4 .5 mg/dL [facility] RESPIRATORY PATHOGENS PANEL BY PCRon 07-01-2024 RESPIRATORY PATHOGENS PANEL BY PCR SARS-COV-2 Reference Not Detected Not Detected ADENOVIRUS Reference Not Detected Not Detected CORONAVIRUS HKU1 Reference Not Detected Not Detected CORONAVIRUS NL63 Reference Not Detected Not Detected CORONAVIRUS 229E Reference Not Detected Not Detected CORONAVIRUS OC43 Reference Not Detected Not Detected HUMAN METAPNEUMOVIRUS Reference Not Detected Not Detected HUMAN RHINOVIRUS/ENTEROVIR US Reference Not Detected Not Detected INFLUENZA A Reference Not Detected Not Detected INFLUENZA B Reference Not Detected Not Detected PARAINFLUENZA 1 Reference Not Detected Not Detected PARAINFLUENZA 2 Reference Not Detected Not Detected PARAINFLUENZA 3 Reference Not Detected Not Detected PARAINFLUENZA 4 Reference Not Detected Not Detected RESPIRATORY SYNCYTIAL VIRUS Reference Not Detected Not Detected BORDETELLA PERTUSSIS Reference Not Detected Not Detected BORDETELLA PARAPERTUSSIS Reference Not Detected Not Detected CHLAMYDIA PNEUMONIAE Reference Not Detected Not Detected MYCOPLASMA PNEUMONIAE Reference Not Detected Not Detected ORDER COMMENTS: Methodology: Multiplex PCR Normal [facility] Comment on above: Performed By: #### L [id number] ####Microbiology Manager: CHERYL STOREY ([phone])[address] Respiratory pathogens DNA an d RNA panel HUGO+non-probe (Nph)on 07-01-2024 Adenovirus Not detected Not Detected [facility] B. pertussis DNA HUGO+probe Ql (Unsp spec) Not detected Not Detected [facility] Bordetella parapertussis Not detected Not Detected [facility] Chlamydia pneumoniae Not detected Not Detected [facility] Coronavirus 229E Not detected Not Detected [facility] Coronavirus HKU1 Not detected Not Detected [facility] Coronavirus NL63 Not detected Not Detected [facility] Coronavirus OC43 Not detected Not Detected [facility] FLUAV RNA HUGO+non-probe Ql (Nph) Not detected Not Detected [facility] FLUBV RNA HUGO+non-probe Ql (Nph) Not detected Not Detected [facility] Human Metapneumovirus Not detected Not Detected [facility] Human Rhinovirus/Enterovirus Not detected Not Detected [facility] Interpretation and review of laboratory results Normal [facility] Mycoplasma pneumoniae Not detected Not Detected [facility] Parainfluenza 1 Not detected Not Detected [facility] Parainfluenza 2 Not detected Not Detected [facility] Parainfluenza 3 Not detected Not Detected [facility] Parainfluenza 4 Not detected Not Detected [facility] Respiratory Syncytial Virus Not detected Not Detected [facility] SARS-CoV-2 (COVID-19) RNA HUGO+non-probe Ql (Nph) Not detected Not Detected [facility] 30on 06-30-2024 30 Problem: Knowledge Deficit Goal: Patient/family/careg iver demonstrates understanding of disease process, treatment plan, medications, and discharge instructions 06/30/2024 0624 by Erika Trent RN Outcome: [...] Achieves stable or improved neurological status 06/30/2024 0624 by Erika Trent RN Outcome: Progressing 06/30/2024 0610 by Erika Trent RN Outcome: Progressing Problem: Hematologic - Adult Goal: Maintains hematologic stability 06/30/2024 0624 by Erika Trent RN Outcome: Progressing Flowsheets (Taken 06/30/2024 0617) Maintains hematologic stability: Assess for signs and symptoms of bleeding or hemorrhage Monitor labs for bleeding or clotting disorders 06/30/2024 0610 by Erika Trent RN Outcome: Progressing Problem: Potential for Falls Goal: I will remain free of falls 06/30/2024 0624 by Erika Trent RN Outcome: Progressing 06/30/2024 06 by Erika Trent RN Outcome: Progressing Problem: Discharge Barriers Goal: My discharge needs are met 06/30/2024623 by Erika Trent RN Outcome: Progressing 06/30/2024609 by Erika Trent RN Outcome: Progressing Normal [facility] AMMONIAon 06-30-2024 Ammonia (P) [Mass/Vol] ug/dL Low 9-30 [facility] Comment on above: Performed By: #### L AB17, [id number], [id number] #### Microbiology Manager: RUTH ANN BRAGG ([phone]) [facility] [place] ([facility]) [address] CALCIUM, IONIZEDon CALCIUM IONIZED 4.80 mg/dL Normal 4.30-5.20 [facility] Comment on above: Performed By: #### L AB17, [id number], IFQ153 #### Microbiology Manager: RUTH ANN BRAGG ([phone]) [facility] [place] ([facility]) [address] PH, IONIZED CALCIUM 7.46 Normal 7.31-7.46 [facility] Comment on above: Performed By: #### L AB17, [id number], [id number] #### Microbiology Manager: RUTH ANN BRAGG ([id number]) [facility] [place] ([facility]) [address] CBC W Auto Differential pane l (Bld)on 06-30-2024 Basophils (Bld) [#/Vol] 0 10*3/uL 0.0 - 0.2 10*3/uL [facility] Basophils/100 WBC (Bld) 0.3 % 0.0 - 2.0 % [facility] Eosinophils (Bld) [#/Vol] 0.4 10*3/uL 0. 0 - 0.5 10*3/uL [facility] Eosinophils/100 WBC (Bld) 6.1 % High 0.0 - 6.0 % [facility] Erythrocyte distribution width (RBC) [Ratio] 15 % 11.5 - 15.0 % [facility] Hematocrit (Bld) [Volume fraction] 24.7 % Low 35.0 - 47.0 % [facility] Hemoglobin (Bld) [Mass/Vol] 7.5 g/dL Low 11.7 - 16.0 g/dL [facility] Immature granulocytes (Bld) [#/Vol] 0.1 10*3/uL High NINF - 0.1 10*3/uL [facility] Immature granulocytes/100 WBC (Bld) 0.9 % 0.0 - 2.0 % [facility] Interpretation and review of laboratory results Abnormal [facility] th IPF 4 [facility] Lymphocytes (Bld) [#/Vol] 1.1 10*3/uL 1. 0 - 4.3 10*3/uL [facility] Lymphocytes/100 WBC (Bld) 15.4 % 15 .0 - 45.0 % [facility] MCH (RBC) [Entitic mass] 31 pg 26. 0 - 34.0 pg [facility] MCHC (RBC) [Mass/Vol] 30.4 % Low 30.5 - 36.0 % [facility] MCV (RBC) [Entitic vol] 102.1 fL High 77.0 - 99.0 fL [facility] Monocytes (Bld) [#/Vol] 1.1 10*3/uL High 0.0 - 0.9 10*3/uL [facility] Monocytes/100 WBC (Bld) 15.4 % High 5.0 - 13.0 % [facility] Neutrophils (Bld) [#/Vol] 4.3 10*3/uL 1. 8 - 7.5 10*3/uL [facility] Neutrophils/100 WBC (Bld) 61.9 % 38 .0 - 82.0 % [facility] Nucleated RBC/100 WBC (Bld) [Ratio] 0 % [facility] Platelet mean volume (Bld) [Entitic vol] 11.8 fL 9.0 - 12.7 fL [facility] Platelets (Bld) [#/Vol] 74 10*3/uL Low 140 - 440 10*3/uL [facility] RBC (Bld) [#/Vol] 2.42 10*6/uL Low 3.80 - 5.2 0 10*6/uL [facility] WBC (Bld) [#/Vol] 6.9 10*3/uL 3.6 - 10.7 10*3/uL [facility] CBC WITH AUTO DIFFERENTIALon 06-30-2024 Basophils (Bld) [#/Vol] 0.0 10*3/uL Normal 0.0-0.2 [facility] Comment on above: Performed By: #### L AB17, [id number], IOI333 #### Microbiology Manager: RUTH ANN BRAGG ([phone]) [facility] ([facility]) [address] Basophils/100 WBC (Bld) 0.3 % Normal 0.0-2.0 [facility] Comment on above: Performed By: #### L AB17, WJZ070, DCY685 #### Microbiology Manager: RUTH ANN BRAGG ([id number]) [facility] [address] Eosinophils (Bld) [#/Vol] 0.4 10*3/uL Normal 0.0-0.5 [facility] Comment on above: Performed By: #### L AB17, PBZ377, TOS852 #### Microbiology Manager: RUTH ANN BRAGG ([phone]) [facility] ([facility]) [address] Eosinophils/100 WBC (Bld) 6.1 % High 0.0-6.0 [facility] Comment on above: Performed By: #### L AB17, PYX277, XHV863 #### Microbiology Manager: RUTH ANN BRAGG ([phone]) [facility] [address] Erythrocyte distribution width (RBC) [Ratio] 15.0 % Normal 11.5-15.0 [facility] Comment on above: Performed By: #### L AB17, EMN167, GLO532 #### Microbiology Manager: RUTH ANN BRAGG ([phone]) [facility] [address] Hematocrit (Bld) [Volume fraction] 24.7 % Low 35.0-47.0 [facility] Comment on above: Performed By: #### L AB17, DPN847, HXX843 #### Microbiology Manager: RUTH ANN BRAGG ([id number]) [facility] ([facility]) [address] Hemoglobin (Bld) [Mass/Vol] 7.5 g/dL Low 11.7-16.0 [facility] Comment on above: Performed By: #### L AB17, NFI613, ZTO762 #### Microbiology Manager: RUTH ANN BRAGG ([phone]) [facility] [address] IMMATURE GRANS % 0.9 % Normal 0.0-2.0 [facility] Comment on above: Performed By: #### L AB17, UKN934, ULY594 #### Microbiology Manager: RUTH ANN BRAGG ([phone]) [facility] [address] IMMATURE GRANS ABSOLUTE 0.1 10*3/uL High <0.1 [facility] Comment on above: Performed By: #### L AB17, ANP380, EYG220 #### Microbiology Manager: RUTH ANN BRAGG ([phone]) [facility] ([facility]) [address] IPF 4 Normal [facility] Comment on above: Performed By: #### L AB17, ASN813, JLC898 #### Microbiology Manager: RUTH ANN BRAGG ([phone]) [facility] ([facility]) [address] Lymphocytes (Bld) [#/Vol] 1.1 10*3/uL Normal 1.0-4.3 [facility] Comment on above: Performed By: #### L AB17, KSZ701, HRB748 #### Microbiology Manager: RUTH ANN BRAGG ([phone]) [facility] ([facility]) [address] Lymphocytes/100 WBC (Bld) 15.4 % Normal 15.0-45.0 [facility] Comment on above: Performed By: #### L AB17, SUW209, XLV722 #### Microbiology Manager: RUTH ANN BRAGG ([phone]) [facility] ([facility]) [address] MCH (RBC) [Entitic mass] 31.0 pg Normal 26.0-34.0 [facility] Comment on above: Performed By: #### L AB17, QMF510, ZOM477 #### Microbiology Manager: RUTH ANN BRAGG ([phone]) [facility] ([facility]) [address] MCHC 30.4 % Low 30.5-36.0 [facility] Comment on above: Performed By: #### L AB17, XSQ388, WYV094 #### Microbiology Manager: RUTH ANN BRAGG ([phone]) [facility] ([facility]) [address] MCV (RBC) [Entitic vol] 102.1 fL High 77.0-99.0 [facility] Comment on above: Performed By: #### L AB17, JDP192, OID582 #### Microbiology Manager: RUTH ANN BRAGG ([id number]) [facility] [place] ([facility]) [address] Monocytes (Bld) [#/Vol] 1.1 10*3/uL High 0.0-0.9 [facility] Comment on above: Performed By: #### L AB17, WYB868, KMJ956 #### Microbiology Manager: RUTH ANN BRAGG ([phone]) [facility] [place] ([facility]) [address] [place] [address] [place] Monocytes/100 WBC (Bld) 15.4 % High 5.0-13.0 [facility] Comment on above: Performed By: #### L AB17, ZEA808, ACB284 #### Microbiology Manager: RUTH ANN BRAGG ([phone]) [facility] [place] ([facility]) [address] NEUTROPHILS ABSOLUTE 4.3 10*3/uL Normal 1.8-7.5 [facility] Comment on above: Performed By: #### L AB17, LZG016, FLJ752 #### Microbiology Manager: RUTH ANN BRAGG ([phone]) [facility] [place] ([facility]) [address] Neutrophils/100 WBC (Bld) 61.9 % Normal 38.0-82.0 [facility] Comment on above: Performed By: #### L AB17, OTW482, ITY795 #### Microbiology Manager: RUTH ANN BRAGG ([phone]) [facility] [place] ([facility]) [address] NRBC 0.0 /100 WBCs Normal 0.0-2.0 [facility] Comment on above: Performed By: #### L AB17, LRN411, SFH613 #### Microbiology Manager: RUTH ANN BRAGG ([phone]) [facility] [place] ([facility]) [address] Platelet mean volume (Bld) [Entitic vol] 11.8 fL Normal 9.0-12.7 [facility] Comment on above: Performed By: #### L AB17, GFJ219, ZAT727 #### Microbiology Manager: RUTH ANN BRAGG ([phone]) [facility] ([facility]) [address] [place] [address] [place] Platelets (Bld) [#/Vol] 74 10*3/uL Low 140-440 [facility] Comment on above: Performed By: #### L AB17, WRD601, UHJ759 #### Microbiology Manager: RUTH ANN BRAGG ([phone]) [facility] ([facility]) [address] [place] [address] [place] RBC (Bld) [#/Vol] 2.42 10*6/uL Low 3.80-5.20 [facility] Comment on above: Performed By: #### L AB17, IDW003, IBE904 #### Microbiology Manager: RUTH ANN BRAGG ([id number]) [facility] ([facility]) [address] WBC (Bld) [#/Vol] 6.9 10*3/uL Normal 3.6-10.7 [facility] Comment on above: Performed By: #### L AB17, KNX204, DHY695 #### Microbiology Manager: RUTH ANN BRAGG ([phone]) [facility] ([facility]) [address] COMPREHENSIVE METABOLIC PANE Smith 06-30-2024 Albumin [Mass/Vol] 2.3 g/dL Low 3.5-5.0 [facility] Comment on above: Performed By: #### L AB17, EOY650, HYU238 #### Microbiology Manager: RUTH ANN BRAGG ([phone]) [facility] ([facility]) [address] ALP [Catalytic activity/Vol] 81 U/L Normal 38-126 [facility] Comment on above: Performed By: #### L AB17, TMX693, BXR464 #### Microbiology Manager: RUTH ANN BRAGG ([phone]) [facility] ([facility]) [address] ALT [Catalytic activity/Vol] 24 U/L Normal 0-34 [facility] Comment on above: Performed By: #### L AB17, TZI417, HWW329 #### Microbiology Manager: RUTH ANN BRAGG ([id number]) [facility] ([facility]) [address] [place] [address] [place] Anion gap [Moles/Vol] 3 mmol/L Normal 3-13 [facility] Comment on above: Performed By: #### L AB17, NDN059, RGS295 #### Microbiology Manager: RUTH ANN BRAGG ([id number]) [facility] ([facility]) [address] [place] [address] [place] AST [Catalytic activity/Vol] 43 U/L Normal 15-46 [facility] Comment on above: Performed By: #### L AB17, VWV008, UIA352 #### Microbiology Manager: RUTH ANN BRAGG ([phone]) [facility] ([facility]) [address] Bilirubin [Mass/Vol] 0.8 mg/dL Normal 0.2-1.3 [facility] Comment on above: Performed By: #### L AB17, BOD739, RNF329 #### Microbiology Manager: RUTH ANN BRAGG ([phone]) [facility] ([facility]) [address] Calcium [Mass/Vol] 8.4 mg/dL Normal 8.4-10.4 [facility] Comment on above: Performed By: #### L AB17, TAY586, JXC182 #### Microbiology Manager: RUTH ANN BRAGG ([phone]) [facility] ([facility]) [address] [place] [address] [place] Chloride [Moles/Vol] 117 mmol/L High 98-107 [facility] Comment on above: Performed By: #### L AB17, PKY889, OOO279 #### Microbiology Manager: RUTH ANN BRAGG ([phone]) [facility] ([facility]) [address] [place] [address] [place] CO2 [Moles/Vol] 23 mmol/L Normal 22-30 [facility] Comment on above: Performed By: #### L AB17, ODN536, CIM230 #### Microbiology Manager: RUTH ANN BRAGG ([id number]) [facility] ([facility]) [address] [place] [address] [place] Creatinine [Mass/Vol] 1.15 mg/dL High 0.52-1.04 [facility] Comment on above: Performed By: #### L AB17, JYN153, XJE281 #### Microbiology Manager: RUTH ANN BRAGG ([phone]) [facility] ([facility] [address] [place] [address] [place] GLOMERULAR FILTRATION RATE ML/MIN/1.73 SQ M.PREDICTED 48.9 mL/min/1.73m*2 Low >60.0 [facility] Comment on above: Result Comment: Calc ulation based on the Chronic Kidney Disease Epidemiology Collaboration (CKD-EPI) equation refit without adjustment for race Performed By: #### L AB17, ZRI399, GFA922 #### Microbiology Manager: RUTH ANN RBAGG ([id number]) [facility] ([facility]) [address] Glucose [Mass/Vol] 131 mg/dL High 70-100 [facility] Comment on above: Performed By: #### L AB17, UMQ411, UWK080 #### Microbiology Manager: RUTH ANN BRAGG ([phone]) [facility] ([facility]) [address] Potassium [Moles/Vol] 3.5 mmol/L Normal 3.5-5.1 [facility] Comment on above: Performed By: #### L AB17, ARY027, XVN740 #### Microbiology Manager: RUTH ANN BRAGG ([phone]) [facility] ([facility]) [address] Protein [Mass/Vol] 5.0 g/dL Low 6.3-8.2 [facility] Comment on above: Performed By: #### L AB17, LTR638, QNB629 #### Microbiology Manager: RUTH ANN BRAGG ([phone]) [facility] ([facility]) [address] [place] [address] [place] Sodium [Moles/Vol] 142 mmol/L Normal 135-145 [facility] Comment on above: Performed By: #### L AB17, MMR456, LBQ727 #### Microbiology Manager: RUTH ANN BRAGG ([id number]) [facility] ([facility]) [address] [place] [address] [place] Urea nitrogen [Mass/Vol] 48 mg/dL High 7-17 [facility] Comment on above: Performed By: #### L AB17, TEE319, UEH246 #### Microbiology Manager: RUTH ANN BRAGG ([phone]) [facility] ([facility]) [address] Calcium.ionized [Moles/Vol]o n 06-30-2024 Calcium.ionized (Bld) [Moles/Vol] 4.8 mg/dL 4.30 - 5.20 mg/dL [facility] Interpretation and review of laboratory results Normal [facility] PH, IONIZED CALCIUM 7.46 7.31 - 7.46 [facility] Comprehensive metabolic 1998 panelon 06-30-2024 Albumin [Mass/Vol] 2.3 g/dL Low 3.5 - 5.0 g/dL [facility] ALP [Catalytic activity/Vol] 81 U/L 38 - 126 U/L [facility] ALT [Catalytic activity/Vol] 24 U/L 0 - 34 U/L [facility] Anion gap [Moles/Vol] 3 mmol/L 3 - 13 mmol/L [facility] AST [Catalytic activity/Vol] 43 U/L 15 - 46 U/L [facility] Bilirubin [Mass/Vol] 0.8 mg/dL 0.2 - 1 .3 mg/dL [facility] Calcium [Mass/Vol] 8.4 mg/dL 8.4 - 10. 4 mg/dL [facility] Chloride [Moles/Vol] 117 mmol/L High 98 - 10 7 mmol/L [facility] CO2 [Moles/Vol] 23 mmol/L 22 - 30 mmol/L [facility] Creatinine [Mass/Vol] 1.15 mg/dL High 0.52 - 1.04 mg/dL [facility] GFR/1.73 sq M.predicted (S/P/Bld) [Vol rate/Area] 48.9 mL/min Low - PINF [facility] Glucose [Mass/Vol] 131 mg/dL High 70 - 100 mg/dL [facility] Interpretation and review of laboratory results Abnormal [facility] Potassium [Moles/Vol] 3.5 mmol/L 3.5 - 5.1 mmol/L [facility] Protein [Mass/Vol] 5 g/dL Low 6.3 - 8.2 g/dL [facility] Sodium [Moles/Vol] 142 mmol/L 135 - 145 mmol/L [facility] Urea nitrogen [Mass/Vol] 48 mg/dL High 7 - 17 mg/dL [facility] - Chemistry and C hemistry - challengeon 06-30-2024 Glucose [Mass/Vol] 166 mg/dL High 70 - 100 mg/dL [facility] Glucose [Mass/Vol] 210 mg/dL High 70 - 100 mg/dL [facility] Glucose [Mass/Vol] 214 mg/dL High 70 - 100 mg/dL [facility] Glucose [Mass/Vol] 141 mg/dL High 70 - 100 mg/dL [facility] Magnesium [Mass/Vol] 2.1 mg/dL 1.6 - 2 .3 mg/dL [facility] Ammonia (P) [Moles/Vol] umol/L Low 9 - 30 umol/L [facility] MAGNESIUMon 06-30-2024 Magnesium [Mass/Vol] 2.1 mg/dL Normal 1.6-2.3 [facility] Comment on above: Performed By: #### L AB17, EIP151, GIQ835 #### Microbiology Manager: RUTH ANN BRAGG ([phone]) [facility] ([facility]) [address] [place] [address] No Panel Informationon 06-30 Interpretation and review of laboratory results Abnormal [facility] Interpretation and review of laboratory results Abnormal [facility] Interpretation and review of laboratory results Abnormal [facility] Interpretation and review of laboratory results Abnormal [facility] Interpretation and review of laboratory results Normal [facility] Interpretation and review of laboratory results Abnormal [facility] PHOSPHORUSon 06-30-2024 Phosphate [Mass/Vol] 3.1 mg/dL Normal 2.5-4.5 [facility] Comment on above: Performed By: #### L AB17, WTC350, IAP760 #### Microbiology Manager: RUTH ANN BRAGG ([phone]) [facility] ([facility]) [address] Phosphate [Moles/Vol]on 06-09 Phosphate [Mass/Vol] 3.1 mg/dL 2.5 - 4 .5 mg/dL [facility] Progress Noteon 06-30-2024 Progress Note Speech-Language Pathology SPEECH LANGUAGE PATHOLOGY [facility] Dysphagia Treatment Note Patient Name: Mikel Winston Evaluation Date: 06/30/2024 Date of : 1945 Admission Date: 06/25/2024 5:04 PM Age: 78 y.o. Room/Bed: [facility]249/B2-249 A Subjective Patient alert and cooperative. Seen [...] the bedside to assist pt with feeding. PARKING METER ATTENDANT reviewed diet and swallow strategies. Moderate - [...] use of established swallow strategies Continue acute PARKING METER ATTENDANT therapy per initial plan of care and [...] End: 07/13/24 Patient will demonstrate safe swallowing Intervention/techniq ues (Progressing) Start: 06/29/24 Expected End: 07/13/24 Patient will tolerate recommended food and liquid consistencies without clinical signs and symptoms of aspirations (Progressing) Start: 06/29/24 Expected End: 07/13/24 Therapy Time PARKING METER ATTENDANT Individual Minutes Time In: 935 Time Out: 954 Minutes: [address] [facility] 30on 06-29-2024 30 Problem: Knowledge Deficit Goal: Patient/family/careg iver demonstrates understanding of disease process, treatment plan, [...] Monitor labs for bleeding or clotting disorders [facility] [id number] 06-29-2024 [id number] This TCC was finally able to make [...] re-address Tuesday. TCC will continue to follow. Normal [facility] AMMONIAon 06-29-2024 Ammonia (P) [Mass/Vol] ug/dL Low 9-30 [facility] Comment on above: Performed By: #### L AB17, QVN653, LPO150 #### Microbiology Manager: RUTH ANN BRAGG ([phone]) [facility] ([facility]) [address] CALCIUM, IONIZEDon 4 CALCIUM IONIZED 4.80 mg/dL Normal 4.30-5.20 [facility] Comment on above: Performed By: #### L AB17, XIM890, RWC422 #### Microbiology Manager: RUTH ANN BRAGG ([phone]) [facility] ([facility]) [address] PH, IONIZED CALCIUM 7.49 High 7.31-7.46 [facility] Comment on above: Performed By: #### L AB17, EEJ734, ZZJ343 #### Microbiology Manager: RUTH ANN BRAGG ([phone]) [facility] ([facility]) [address] CBC W Auto Differential pane l (Bld)on 06-29-2024 Erythrocyte distribution width (RBC) [Ratio] 15.3 % High 11.5 - 15.0 % [facility] Hematocrit (Bld) [Volume fraction] 30 % Low 35.0 - 47.0 % [facility] Hemoglobin (Bld) [Mass/Vol] 9.3 g/dL Low 11.7 - 16.0 g/dL [facility] MCH (RBC) [Entitic mass] 31.4 pg 26. 0 - 34.0 pg [facility] MCHC (RBC) [Mass/Vol] 31 % 30.5 - 36.0 % [facility] MCV (RBC) [Entitic vol] 101.4 fL High 77.0 - 99.0 fL [facility] [employer] Platelet mean volume (Bld) [Entitic vol] 11.1 fL 9.0 - 12.7 fL [facility] Platelets (Bld) [#/Vol] 95 10*3/uL Low 140 - 440 10*3/uL [facility] RBC (Bld) [#/Vol] 2.96 10*6/uL Low 3.80 - 5.2 0 10*6/uL [facility] WBC (Bld) [#/Vol] 9.4 10*3/uL 3.6 - 10.7 10*3/uL [facility] CBC WITH AUTO DIFFERENTIALon 06-29-2024 Erythrocyte distribution width (RBC) [Ratio] 15.3 % High 11.5-15.0 [facility] Comment on above: Performed By: #### L AB17, HGS290, YPB929 #### Microbiology Manager: RUTH ANN BRAGG ([phone]) [facility] [address] [place] [address] Hematocrit (Bld) [Volume fraction] 30.0 % Low 35.0-47.0 [facility] Comment on above: Performed By: #### L AB17, UDX747, LUV346 #### Microbiology Manager: RUTH ANN BRAGG ([phone]) [facility] [address] [place] [address] Hemoglobin (Bld) [Mass/Vol] 9.3 g/dL Low 11.7-16.0 [facility] Comment on above: Performed By: #### L AB17, BVA033, DIG903 #### Microbiology Manager: RUTH ANN BRAGG ([phone]) [facility] [address] [place] [address] MCH (RBC) [Entitic mass] 31.4 pg Normal 26.0-34.0 [facility] Comment on above: Performed By: #### L AB17, BWO421, OUQ188 #### Microbiology Manager: RUTH ANN BRAGG ([id number]) [facility] [address] MCHC 31.0 % Normal 30.5-36.0 [facility] Comment on above: Performed By: #### L AB17, ZWQ651, GZB364 #### Microbiology Manager: RUTH ANN BRAGG ([phone]) [facility] ([facility]) [address] MCV (RBC) [Entitic vol] 101.4 fL High 77.0-99.0 [facility] Comment on above: Performed By: #### L AB17, NCJ935, RMK439 #### Microbiology Manager: RUTH ANN BRAGG ([phone]) [facility] ([facility]) [address] Platelet mean volume (Bld) [Entitic vol] 11.1 fL Normal 9.0-12.7 [facility] Comment on above: Performed By: #### L AB17, ZQX437, KVT707 #### Microbiology Manager: RUTH ANN BRAGG ([phone]) [facility] ([facility]) [address] Platelets (Bld) [#/Vol] 95 10*3/uL Low 140-440 [facility] Comment on above: Performed By: #### L AB17, ABM123, VXJ667 #### Microbiology Manager: RUTH ANN BRAGG ([phone]) [facility] ([facility]) [address] RBC (Bld) [#/Vol] 2.96 10*6/uL Low 3.80-5.20 [facility] Comment on above: Performed By: #### L AB17, IMX190, OMF148 #### Microbiology Manager: RUTH ANN BRAGG ([phone]) [facility] ([facility]) [address] WBC (Bld) [#/Vol] 9.4 10*3/uL Normal 3.6-10.7 [facility] Comment on above: Performed By: #### L AB17, UCF193, UZH852 #### Microbiology Manager: RUTH ANN BRAGG ([phone]) [facility] ([facility]) [address] COMPREHENSIVE METABOLIC PANE Smith 06-29-2024 Albumin [Mass/Vol] 2.9 g/dL Low 3.5-5.0 [facility] Comment on above: Performed By: #### L AB17, DYZ786, HCZ512 #### Microbiology Manager: RUTH ANN BRAGG ([phone]) [facility] ([facility]) [address] [place], [place] [id number] [place] [address] ALP [Catalytic activity/Vol] 123 U/L Normal 38-126 [facility] Comment on above: Performed By: #### L AB17, JQF313, PPD979 #### Microbiology Manager: RUTH ANN BRAGG ([id number]) [facility] ([facility]) [address] [place], [place] [id number] [place] [address] ALT [Catalytic activity/Vol] 26 U/L Normal 0-34 [facility] Comment on above: Performed By: #### L AB17, NXL007, FOB241 #### Microbiology Manager: RUTH ANN BRAGG ([id number]) [facility] ([facility]) [address] [place] [address] [place] Anion gap [Moles/Vol] 4 mmol/L Normal 3-13 [facility] Comment on above: Performed By: #### L AB17, TFM356, ARW170 #### Microbiology Manager: RUTH ANN BRAGG ([id number]) [facility] ([facility]) [address] [place] [address] [place] AST [Catalytic activity/Vol] 53 U/L High 15-46 [facility] Comment on above: Performed By: #### L AB17, YHW994, VXU312 #### Microbiology Manager: RUTH ANN BRAGG ([id number]) [facility] [address] [place] [address] [place] Bilirubin [Mass/Vol] 0.9 mg/dL Normal 0.2-1.3 [facility] Comment on above: Performed By: #### L AB17, PVW657, ZZO824 #### Microbiology Manager: RUTH ANN BRAGG ([phone]) [facility] ([facility]) [address] [place] [address] [place] Calcium [Mass/Vol] 9.0 mg/dL Normal 8.4-10.4 [facility] Comment on above: Performed By: #### L AB17, RUM132, ZKP816 #### Microbiology Manager: RUTH ANN BRAGG ([phone]) [facility] ([facility]) [address] Chloride [Moles/Vol] 120 mmol/L High 98-107 [facility] Comment on above: Performed By: #### L AB17, THQ136, DGV213 #### Microbiology Manager: RUTH ANN BRAGG ([phone]) [facility] ([facility]) [address] CO2 [Moles/Vol] 21 mmol/L Low 22-30 [facility] Comment on above: Performed By: #### L AB17, DXE303, HPE355 #### Microbiology Manager: RUTH ANN BRAGG ([phone]) [facility] [address] Creatinine [Mass/Vol] 1.25 mg/dL High 0.52-1.04 [facility] Comment on above: Performed By: #### L AB17, ENO248, VEN736 #### Microbiology Manager: RUTH ANN BRAGG ([phone]) [facility] [address] [place] [address] [place] GLOMERULAR FILTRATION RATE ML/MIN/1.73 SQ M.PREDICTED 44.2 mL/min/1.73m*2 Low >60.0 [facility] Comment on above: Result Comment: Calc ulation based on the Chronic Kidney Disease Epidemiology Collaboration (CKD-EPI) equation refit without adjustment for race Performed By: #### L AB17, DYN387, UXV540 #### Microbiology Manager: RUTH ANN BRAGG ([phone]) [facility] [address] [place] [address] [place] Glucose [Mass/Vol] 190 mg/dL High 70-100 [facility] Comment on above: Performed By: #### L AB17, OAD008, KPQ123 #### Microbiology Manager: RUTH ANN BRAGG ([phone]) [facility] ([facility]) [address] Potassium [Moles/Vol] 3.7 mmol/L Normal 3.5-5.1 [facility] Comment on above: Performed By: #### L AB17, [id number], [id number] #### Microbiology Manager: RUTH ANN BRAGG ([phone]) [facility] ([facility]) [address] Protein [Mass/Vol] 5.8 g/dL Low 6.3-8.2 [facility] Comment on above: Performed By: #### L AB17, [id number], [id number] #### Microbiology Manager: RUTH ANN BRAGG ([phone]) [facility] ([facility]) [address] Sodium [Moles/Vol] 145 mmol/L Normal 135-145 [facility] Comment on above: Performed By: #### L AB17, [id number], [id number] #### Microbiology Manager: RUTH ANN BRAGG ([phone]) [facility] ([facility]) [address] Urea nitrogen [Mass/Vol] 51 mg/dL High 02-21 [facility] Comment on above: Performed By: #### L AB17, [id number], [id number] #### Microbiology Manager: RUTH ANN BRAGG ([phone]) [facility] ([facility]) [address] Calcium.ionized [Moles/Vol]O rdered By: Carola Hernandez on 06-29-2024 Calcium.ionized (Bld) [Moles/Vol] 4.8 mg/dL 4.30 - 5.20 mg/dL [facility] Interpretation and review of laboratory results Abnormal [facility] PH, IONIZED CALCIUM 7.49 High 7.31 - 7.46 [facility] Comprehensive metabolic 1998 panelon 06-29-2024 Albumin [Mass/Vol] 2.9 g/dL Low 3.5 - 5.0 g/dL [facility] ALP [Catalytic activity/Vol] 123 U/L 38 - 126 U/L [facility] ALT [Catalytic activity/Vol] 26 U/L 0 - 34 U/L [facility] Anion gap [Moles/Vol] 4 mmol/L 3 - 13 mmol/L [facility] AST [Catalytic activity/Vol] 53 U/L High 15 - 46 U/L [facility] Bilirubin [Mass/Vol] 0.9 mg/dL 0.2 - 1 .3 mg/dL [facility] Calcium [Mass/Vol] 9 mg/dL 8.4 - 10. 4 mg/dL [facility] Chloride [Moles/Vol] 120 mmol/L High 98 - 10 7 mmol/L [facility] CO2 [Moles/Vol] 21 mmol/L Low 22 - 30 mmol/L [facility] Creatinine [Mass/Vol] 1.25 mg/dL High 0.52 - 1.04 mg/dL [facility] GFR/1.73 sq M.predicted (S/P/Bld) [Vol rate/Area] 44.2 mL/min Low - PINF [facility] Glucose [Mass/Vol] 190 mg/dL High 70 - 100 mg/dL [facility] Potassium [Moles/Vol] 3.7 mmol/L 3.5 - 5.1 mmol/L [facility] Protein [Mass/Vol] 5.8 g/dL Low 6.3 - 8.2 g/dL [facility] Sodium [Moles/Vol] 145 mmol/L 135 - 145 mmol/L [facility] Urea nitrogen [Mass/Vol] 51 mg/dL High 7 - 17 mg/dL [facility] Laboratory - Chemistry and C hemistry - challengeon 06-29-2024 Glucose [Mass/Vol] 162 mg/dL High 70 - 100 mg/dL [facility] Glucose [Mass/Vol] 195 mg/dL High 70 - 100 mg/dL [facility] Glucose [Mass/Vol] 190 mg/dL High 70 - 100 mg/dL [facility] Glucose [Mass/Vol] 195 mg/dL High 70 - 100 mg/dL [facility] Magnesium [Mass/Vol] 2.2 mg/dL 1.6 - 2 .3 mg/dL [facility] Ammonia (P) [Moles/Vol] umol/L Low 9 - 30 umol/L [facility] Laboratory - Hematology and Cell countson 06-29-2024 Anisocytosis Ql (Bld) Slight Abnormal (none) [facility] Basophils (Bld) [#/Vol] 0.1 10*3/uL 0.0 - 0.2 10*3/uL [facility] Basophils/100 WBC (Bld) 1 % 0 - 2 % [facility] Yeison cells LM Ql (Bld) Slight Abnormal (none) [facility] Eosinophils (Bld) [#/Vol] 0.1 10*3/uL 0. 0 - 0.5 10*3/uL [facility] Eosinophils/100 WBC (Bld) 1 % 0 - 6 % [facility] Lymphocytes (Bld) [#/Vol] 0.8 10*3/uL Low 1. 0 - 4.3 10*3/uL [facility] Lymphocytes/100 WBC (Bld) 8 % Low 15 - 45 % [facility] Monocytes (Bld) [#/Vol] 1 10*3/uL High 0.0 - 0.9 10*3/uL [facility] Monocytes/100 WBC (Bld) 11 % 5 - 13 % [facility] Neutrophils (Bld) [#/Vol] 7.3 10*3/uL 1. 8 - 7.5 10*3/uL [facility] Ovalocytes LM Ql (Bld) Slight Abnormal (none) [facility] Poikilocytosis LM Ql (Bld) Slight Abnormal (none) [facility] RBC morphology finding Nom (Bld) abnormal [facility] Schistocytes LM Ql (Bld) Slight Abnormal (none) [facility] Segmented neutrophils/100 WBC (Bld) 78 % 38 - 82 % [facility] MAGNESIUMon 06-29-2024 Magnesium [Mass/Vol] 2.2 mg/dL Normal 1.6-2.3 [facility] Comment on above: Performed By: #### L AB17, [id number], [id number] #### Microbiology Manager: RUTH ANN BRAGG ([phone]) [facility] ([facility]) [address] [place], [place] [id number] [facility] MANUAL DIFFERENTIAL (CELLAVI KRISTIAN)on 06-29-2024 ACANTHOCYTES (PRESENCE) IN BLOOD BY LIGHT MICROSCOPY Slight Abnormal (none) [facility] Comment on above: Performed By: #### L AB17, [id number], [id number] #### Microbiology Manager: RUTH ANN YEMI ([id number]) [facility] [address] ANISOCYTOSIS PRESENCE IN BLOOD BY LIGHT MICROSCOPY Slight Abnormal (none) [facility] Comment on above: Performed By: #### L AB17, [id number], [id number] #### Microbiology Manager: RUTH ANN OBREGONWILTON ([phone]) [facility] ([facility]) [address] BAND NEUTROPHILS TOTAL PER COUNTED LEUKOCYTES BY MANUAL COUNT Normal [facility] Comment on above: Performed By: #### L AB17, [id number], [id number] #### Microbiology Manager: RUTH ANN OBREGONWILTON ([phone]) [facility] [address] [place] [address] [place] BASOPHILS (10*3/UL) IN BLOOD-CELLAVISION 0.1 10*3/uL Normal 0.0-0.2 [facility] Comment on above: Performed By: #### L AB17, [id number], [id number] #### Microbiology Manager: RUTH ANN BRAGG ([phone]) [facility] ([facility]) [address] [place] [address] [place] BASOPHILS TOTAL PER COUNTED LEUKOCYTES BY MANUAL COUNT 1 Normal [facility] Comment on above: Performed By: #### L AB17, [id number], [id number] #### Microbiology Manager: RUTH ANN HERRONSHELTON ([id number]) [facility] ([facility]) [address] [place] [address] [place] BASOPHILS/100 LEUKOCYTES IN BLOOD-CELLAVISION 1 % Normal 0-2 [facility] Comment on above: Performed By: #### L AB17, [id number], [id number] #### Microbiology Manager: RTUH ANN HERRONSHELTON ([phone]) [facility] ([facility]) [address] [place] [address] [place] BLASTS TOTAL PER COUNTED LEUKOCYTES BY MANUAL COUNT Normal [facility] Comment on above: Performed By: #### L AB17, [id number], [id number] #### Microbiology Manager: RUTH ANN BRAGG ([id number]) [facility] [place] ([facility]) [address] [place] [address] [place] EOSINOPHILS (10*3/UL) IN BLOOD-CELLAVISION 0.1 10*3/uL Normal 0.0-0.5 [facility] Comment on above: Performed By: #### L AB17, [id number], [id number] #### Microbiology Manager: RUTH ANN BRAGG ([phone]) [facility] [place] ([facility]) [address] [place] [address] [place] EOSINOPHILS TOTAL PER COUNTED LEUKOCYTES BY MANUAL COUNT 1 Normal 0-1 [facility] Comment on above: Performed By: #### L AB17, [id number], [id number] #### Microbiology Manager: RUTH ANN BRAGG ([phone]) [facility] [place] ([facility]) [address] [place] [address] [place] EOSINOPHILS/100 LEUKOCYTES IN BLOOD-CELLAVISION 1 % Normal 0-6 [facility] Comment on above: Performed By: #### L AB17, DYS007, LII401 #### Microbiology Manager: RUTH ANN BRAGG ([phone]) [facility] [place] ([facility]) [address] [place] [address] [place] LYMPHOCYTES (10*3/UL) IN BLOOD-CELLAVISION 0.8 10*3/uL Low 1.0-4.3 [facility] Comment on above: Performed By: #### L AB17, [id number], SAS306 #### Microbiology Manager: RUTH ANN BRAGG ([phone]) [facility] [place] ([facility]) [address] [place] [address] [place] LYMPHOCYTES TOTAL PER COUNTED LEUKOCYTES BY MANUAL COUNT 8 Normal [facility] Comment on above: Performed By: #### L AB17, [id number], [id number] #### Microbiology Manager: RUTH ANN BRAGG ([id number]) [facility] [place] ([facility]) [address] [place] [address] [place] LYMPHOCYTES/100 LEUKOCYTES IN BLOOD-CELLAVISION 8 % Low 15-45 [facility] Comment on above: Performed By: #### L AB17, [id number], PPR339 #### Microbiology Manager: RUTH ANN BRAGG ([phone]) [facility] [place] ([facility]) [address] [place] [address] [place] METAMYELOCYTES TOTAL PER COUNTED LEUKOCYTES BY MANUAL COUNT Normal [facility] Comment on above: Performed By: #### L AB17, [id number], [id number] #### Microbiology Manager: RUTH ANN BRAGG ([id number]) [facility] [place] ([facility] [address] [place] [address] [place] MONOCYTES (10*3/UL) IN BLOOD-CELLAVISION 1.0 10*3/uL High 0.0-0.9 [facility] Comment on above: Performed By: #### L AB17, [id number], WPP694 #### Microbiology Manager: RUTH ANN BRAGG ([id number]) [facility] [place] ([facility] [address] [place] [address] [place] MONOCYTES TOTAL PER COUNTED LEUKOCYTES BY MANUAL COUNT 11 Normal [facility] Comment on above: Performed By: #### L AB17, QSK267, [id number] #### Microbiology Manager: RUTH ANN BRAGG ([id number]) [facility] [place] [facility] [address] [place] [address] [place] MONOCYTES/100 LEUKOCYTES IN BLOOD-TOMMIE 11 % Normal 5-13 [facility] Comment on above: Performed By: #### L AB17, [id number], YCM561 #### Microbiology Manager: RUTH ANN HERRONSHELTON ([id number]) [facility] [place] ([facility] [address] [place] [address] [place] MYELOCYTES COUNTED BY MANUAL COUNT [facility] Comment on above: Performed By: #### L AB17, DVS102, [id number] #### Microbiology Manager: RUTH ANN BRAGG ([id number]) [facility] ([facility]) [address] [place] [address] [place] NEUTROPHILS TOTAL PER COUNTED LEUKOCYTES BY MANUAL COUNT 80 Normal [facility] Comment on above: Performed By: #### L AB17, [id number], FSD511 #### Microbiology Manager: RUTH ANN BRAGG ([phone]) [facility] ([facility]) [address] [place] [address] [place] OVALOCYTES PRESENCE IN BLOOD BY LIGHT MICROSCOPY Slight Abnormal (none) [facility] Comment on above: Performed By: #### L AB17, [id number], IOB768 #### Microbiology Manager: RUTH ANN BRAGG ([phone]) [facility] ([facility]) [address] POIKILOCYTOSIS (PRESENCE) IN BLOOD BY LIGHT MICROSCOPY Slight Abnormal (none) [facility] Comment on above: Performed By: #### L AB17, RUC260, UZY204 #### Microbiology Manager: RUTH ANN HERRONSHELTON ([id number]) [facility] [address] PROMYELOCYTES TOTAL PER COUNTED LEUKOCYTES BY MANUAL COUNT Normal [facility] Comment on above: Performed By: #### L AB17, WIH411, UTY257 #### Microbiology Manager: RUTH ANN BRAGG ([phone]) [facility] [address] [place] [address] [place] RBC MORPHOLOGY IN BLOOD abnormal Normal S [facility] Comment on above: Performed By: #### L AB17, [id number], LXQ409 #### Microbiology Manager: RUTH ANN BRAGG ([phone]) [facility] [address] [place] [address] [place] SCHISTOCYTES (PRESENCE) IN BLOOD BY LIGHT MICROSCOPY Slight Abnormal (none) [facility] Comment on above: Performed By: #### L AB17, [id number], [id number] #### Microbiology Manager: RUTH ANN BRAGG ([id number]) [facility] [address] [place] [address] [place] SEGMENTED NEUTROPHILS (10*3/UL) IN BLOOD-CELLAVISION 7.3 10*3/uL Normal 1.8-7.5 [facility] Comment on above: Performed By: #### L AB17, QDF396, LMS527 #### Microbiology Manager: RUTH ANN BRAGG ([phone]) [facility] ([facility]) [address] SEGMENTED NEUTROPHILS/100 LEUKOCYTES-CE 78 % Normal 38-82 [facility] Comment on above: Performed By: #### L AB17, [id number], WUT574 #### Microbiology Manager: RUTH ANN BRAGG ([id number]) [facility] ([facility]) [address] UNCLASSIFIED CELLS TOTAL PER COUNTED LEUKOCYTES BY MANUAL COUNT Normal [facility] Comment on above: Performed By: #### L AB17, [id number], [id number] #### Microbiology Manager: RUTH ANN BRAGG ([id number]) [facility] ([facility]) [address] VARIANT LYMPHOCYTES TOTAL PER COUNTED LEUKOCYTES BY MANUAL COUNT Normal [facility] Comment on above: Performed By: #### L AB17, ISA742, [id number] #### Microbiology Manager: RUTH ANN BRAGG ([id number]) [facility] ([facility]) [address] Magnesium [Mass/Vol]on 06-29 Interpretation and review of laboratory results Normal [facility] No Panel Informationon 06-29 Interpretation and review of laboratory results Abnormal [facility] Interpretation and review of laboratory results Abnormal [facility] Interpretation and review of laboratory results Abnormal [facility] Interpretation and review of laboratory results Abnormal [facility] Basophils Manual [facility] Eosinophils Manual 1 0 - 1 [facility] Interpretation and review of laboratory results Abnormal [facility] Lymphocytes Manual 8 [facility] Monocytes Manual 11 [facility] Neutrophils Manual 80 [facility] Interpretation and review of laboratory results Abnormal [facility] Interpretation and review of laboratory results Abnormal [facility] PHOSPHORUSon 06-29-2024 Phosphate [Mass/Vol] 2.2 mg/dL Low 2.5-4.5 [facility] Comment on above: Performed By: #### L AB17, RKT107, HQV520 #### Microbiology Manager: RUTH ANN BRAGG ([phone]) [facility] ([facility]) [address] [place] [address] [facility] Phosphate [Moles/Vol]on 06-09 Phosphate [Mass/Vol] 2.2 mg/dL Low 2.5 - 4 .5 mg/dL [facility] Progress Noteon 06-29-2024 Progress Note Speech-Language Pathology SPEECH LANGUAGE PATHOLOGY [facility] Bedside Swallow Evaluation Patient Name: Mikel Winston Evaluation Date: 06/29/2024 Date of : 1945 Admission Date: 06/25/2024 5:04 PM Age: 78 y.o. [facility]Bed: [facility] A IMPRESSION: S/s oropharyngeal dysphagia. Intermittent [...] mastication). Pt would benefit from skilled acute PARKING METER ATTENDANT services to address further assessment of prandial [...] be evaluated. Dysphagia History: No history of PARKING METER ATTENDANT services in EMR with retrospective chart review [...] CARDIAC ELECTROPHYSIOLOGY PROCEDURE N/A 05/31/2024 Performed by Pravni Poole MD at [facility] Cardiac Cath/EP Lab CHOLECYSTECTOMY CORONARY ARTERY BYPASS GRAFT TOTAL KNEE ARTHROPLASTY Right TUBAL LIGATION Admission Diagnosis: Patient Active Problem List Diagnosis Date Noted Angina at rest ([facility]) 12/26/2017 Acute cystitis with hematuria 06/25/2024 Cellulitis of right lower extremity 01/28/2024 BARRY (acute kidney injury) ([facility]) 11/18/2022 UTI (urinary tract infection) 11/18/2022 Coronary artery disease involving coronary bypass graft of [place] heart without angina pectoris 09/30/2022 Nonrheumatic aortic [...] has had an episode of rectal bleeding. Focu (more content not included)... Normal [facility] Progress Note Nutrition Assessment Type and Reason for Visit: Reassess Nutrition Recommendations/Plan : NG remains in place, with enteral nutrition at goal, patient tolerating without GI distress. Glucerna 1.5 @ 40 mL/hr will provide: 1440 kcal, 79 g protein, 728 mL free fluid --> 26 kcal and 1.4 g protein/kg IBW(55 kg) Pending PARKING METER ATTENDANT evaluation, ADAT per their recommendations As able, please obtain weekly standing scale weights for most accurate anthropometric data and calculation of macronutrient and fluid needs RDN to continue to monitor weekly: fluid accumulation, weight, skin integrity, trends in lab values, tolerance of PO, clinical status, discharge planning. Malnutrition Assessment: Malnutrition Status: At risk for malnutrition (Comment) (EN to goal 06/28, pending PARKING METER ATTENDANT eval today (06/29)) Context: Acute Illness Findings of the 6 clinical characteristics of malnutrition: Energy Intake: Mild decrease in energy intake (Comment) (EN at goal since 06/28) Weight Loss: No significant weight loss Body Fat Loss: Mild body fat loss Orbital, Buccal region Muscle Mass Loss: Mild muscle mass loss Temples (temporalis) Fluid Accumulation: Moderate to Severe (+2 BLE) Extremities Denture Packer Strength: Measurable reduction in ophthalmic surgical assistant strength Nutrition Assessment: 78 year old woman who remains admitted to [facility] ICU after being found down by family. Initially admitted to [facility], then transferred to ICU morning of 06/26 with decrease in mentation and ?maroon? stools. NG placed for lactulose administration (Ammonia profoundly elevated). +EColi UTI, continues on IV ceftriaxone. GI consulted, trending Hgb (8.8->8.9->9.0->8.5- >9.3) and no plans for acute interventions at this time. EN to goal on morning of 06/28. Resting in bed with family at bedside, EN continue to goal. Much improvement in mentaion today, NFPE compelted with patient consent. 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 Pending PARKING METER ATTENDANT eval Estimated Daily Nutrient Needs: Energy Requirements Based On: Kcal/kg Weight Used for Energy Requirements: [place] Weight for Energy Calculation (kg): 55 kg Total Energy Requirements (kcals/day): 5506-8262 (25-30 kcal/kg IBW) Weight Used for Protein Requirements: [place] Weight in Kg Used for Protein Requirements: [...] 190# 06/11/24) % Weight Change (Calculated): 2 [place] Body Weight (lbs) (Calculated): 120 lbs [place] Body Weight (Kg) (Calculated): 55 kg % [place] Body Weight (Calculated): 166.7 % BMI (kg/m2) [...] evidenced by lab values Nutrition Interventions: Nutrition Education/Counseling : Education not indicated Coordination of Nutrition Care: Speech Therapy, Swallow Evaluation Plan of Care discussed with: Patient and family, RN. multidisciplinary rounds Goals: Previous Goal Met: Progressing toward Goal(s) Goals: Initiate PO diet, Tolerate nutrition support at goal rate, by next RD assessment Nutrition Monitoring and Evaluation: Behavioral-Environme ntal Outcomes: None Identified Food/Nutrient Intake Outcomes: Diet Advancement/Toleranc e, Enteral Nutrition Intake/Tolerance Physical Signs/Symptoms Outcomes: Biochemical Data, Chewing or Swallowing, GI Status, Nausea or Vomiting, Skin, Weight, Nutrition Focused Physical Findings, Hemodynamic S (more content not included)... [facility] Progress Note Patient is individual with hx of SBP secondary to cirrhosis, coronary artery disease, type 2 diabetes, hypertension, presented to the ED with altered mental status. Requiring Lactulose by NG tube - mentation improved and she will be transferred to the floor. Yumiko Villasenor MD Division of Hospitalist Medicine Acute care [facility] Progress Note [facility], Pulmonary Critical Care and Sleep Medicine [address] [place], [place] [id number] Critical Care Note: Patient - Mikel Winston, Age - 78 y.o. - 1945 Room Number - [id number] [facility] # - [id number] Date of Admission - 06/25/2024 5:04 PM [...] artery disease involving coronary bypass graft of [place] heart without angina pectoris Nonrheumatic aortic valve stenosis Essential hypertension Dyslipidemia BARRY (acute kidney injury) (HCC) UTI (urinary tract infection) Cellulitis of right lower extremity Symptomatic sinus bradycardia Acute cystitis with hematuria Events of Past 24 Hours As above All other systems reviewed Vitals height is 1.626 m (5' 4). Her axillary temperature is 36.9 ?C (98.4 ?F). Her blood pressure is 164/71 (abnormal) and her pulse is 97. Her respiration is 14 and oxygen saturation is 100%. Range Data Temperature Range: Temp: 36.9 ?C (98.4 ?F)Temp Av.8 ?C (98.3 ?F) Min: 36.3 ?C (97.4 ?F) Max: 37.4 ?C (99.3 ?F) BP Range: Systolic (24hrs), Av , Min:150 [...] 2863 [I.V.:567; NG/GT:2296] Out: 2130 [Urine:2130] @IODETAILS@ @IJIA2CRMIBB@ Lines, ET tube, Devices Lines -none Medications [...] OR acetaminophen, dextrose, dextrose, glucagon (rDNA), glucose, ipratropium-albutero l, labetalol, ondansetron ODT OR ondansetron, polyethylene glycol [...] AST 53 (H) 06/29/2024 PROT 5.8 (L) (more content not included)... Normal [facility] 30on 06-28-2024 30 Problem: Knowledge Deficit Goal: Patient/family/careg iver demonstrates understanding of disease process, treatment plan, [...] Monitor labs for bleeding or clotting disorders Normal [facility] 30 Problem: Knowledge Deficit Goal: Patient/family/careg iver demonstrates understanding of disease process, treatment plan, [...] or improved neurological status Outcome: Not Progressing Normal [facility] [id number] 06-28-2024 [id number] [facility] Palliative Care Transitions of Care Note [...] of the liver who was admitted to [facility] on 06/25 with complain of altered mental status. Patient had Rapid response called at 4.30 am on 06/26 as she was not responding to any verbal stimuli. Patient was transferred to ICU. Acute encephalopathy - multifactorial likely due to combination of hepatic encephalopathy, UTI - mental status improving, patient AxOx2-3 today Dysphagia - cleared by PARKING METER ATTENDANT for adult easy to chew food GI [...] SIGNED: Pricilla Steinberg MD 06/28/2024, 8:52 AM Normal [facility] AMMONIAon 06-28-2024 Ammonia (P) [Moles/Vol] 27 umol/L Normal 9-30 [facility] Comment on above: Performed By: #### L AB17, [id number], [id number] #### Microbiology Manager: RUTH ANN BRAGG ([id number]) [facility] ([facility]) [address] [place] [address] Bacteria identified Cx Nom ( U)Ordered By: Christie Avila on 06-28-2024 Interpretation and review of laboratory results Abnormal [facility] CALCIUM, IONIZEDon 4 CALCIUM IONIZED 4.70 mg/dL Normal 4.30-5.20 [facility] Comment on above: Performed By: #### L AB17, [id number], KCS486 #### Microbiology Manager: RUTH ANN BRAGG ([id number]) [facility] ([facility]) [address] [place] [address] PH, IONIZED CALCIUM 7.50 High 7.31-7.46 [facility] Comment on above: Performed By: #### L AB17, [id number], [id number] #### Microbiology Manager: RUTH ANN BRAGG ([id number]) [facility] ([facility]) [address] CBC W Auto Differential pane l (Bld)Ordered By: Jr Chase on 06-28-2024 Erythrocyte distribution width (RBC) [Ratio] 15.6 % High 11.5 - 15.0 % [facility] Hematocrit (Bld) [Volume fraction] 28 % Low 35.0 - 47.0 % [facility] Hemoglobin (Bld) [Mass/Vol] 8.8 g/dL Low 11.7 - 16.0 g/dL [facility] Interpretation and review of laboratory results Abnormal [facility] MCH (RBC) [Entitic mass] 31.7 pg 26. 0 - 34.0 pg [facility] MCHC (RBC) [Mass/Vol] 31.4 % 30.5 - 36.0 % [facility] MCV (RBC) [Entitic vol] 100.7 fL High 77.0 - 99.0 fL [facility] Platelet mean volume (Bld) [Entitic vol] 10.8 fL 9.0 - 12.7 fL [facility] Platelets (Bld) [#/Vol] 105 10*3/uL Low 140 - 440 10*3/uL [facility] RBC (Bld) [#/Vol] 2.78 10*6/uL Low 3.80 - 5.2 0 10*6/uL [facility] WBC (Bld) [#/Vol] 11.1 10*3/uL High 3.6 - 10.7 10*3/uL [facility] CBC WITH AUTO DIFFERENTIALon 06-28-2024 Erythrocyte distribution width (RBC) [Ratio] 15.6 % High 11.5-15.0 [facility] Comment on above: Performed By: #### L AB17, [id number], [id number] #### Microbiology Manager: RUTH ANN BRAGG ([id number]) [facility] ([facility]) [address] Hematocrit (Bld) [Volume fraction] 28.0 % Low 35.0-47.0 [facility] Comment on above: Performed By: #### L AB17, [id number], [id number] #### Microbiology Manager: RUTH ANN BRAGG ([id number]) [facility] ([facility]) [address] Hemoglobin (Bld) [Mass/Vol] 8.8 g/dL Low 11.7-16.0 [facility] Comment on above: Performed By: #### L AB17, IHP708, [id number] #### Microbiology Manager: RUTH ANN PRITCHARDCER ([id number]) [facility] ([facility]) [address] MCH (RBC) [Entitic mass] 31.7 pg Normal 26.0-34.0 [facility] Comment on above: Performed By: #### L AB17, HIL908, QKL025 #### Microbiology Manager: RUTH ANN BRAGG ([id number]) [facility] [address] MCHC 31.4 % Normal 30.5-36.0 [facility] Comment on above: Performed By: #### L AB17, FPN711, [id number] #### Microbiology Manager: RUTH ANN BRAGG ([id number]) [facility] ([facility]) [address] MCV (RBC) [Entitic vol] 100.7 fL High 77.0-99.0 S [facility] Comment on above: Performed By: #### L AB17, [id number], QBC461 #### Microbiology Manager: RUTH ANN BRAGG ([id number]) [facility] ([facility]) [address] Platelet mean volume (Bld) [Entitic vol] 10.8 fL Normal 9.0-12.7 [facility] Comment on above: Performed By: #### L AB17, BJV333, YOI073 #### Microbiology Manager: RUTH ANN BRAGG ([id number]) [facility] ([facility]) [address] Platelets (Bld) [#/Vol] 105 10*3/uL Low 140-440 [facility] Comment on above: Performed By: #### L AB17, BST839, LSW411 #### Microbiology Manager: RUTH ANN BRAGG ([id number]) [facility] ([facility]) [address] RBC (Bld) [#/Vol] 2.78 10*6/uL Low 3.80-5.20 [facility] Comment on above: Performed By: #### L AB17, CCV227, BDI213 #### Microbiology Manager: RUTH ANN BRAGG ([id number]) [facility] ([facility]) [address] WBC (Bld) [#/Vol] 11.1 10*3/uL High 3.6-10.7 [facility] Comment on above: Performed By: #### L AB17, ORR037, PWD816 #### Microbiology Manager: RUTH ANN BRAGG ([id number]) [facility] ([facility]) [address] COMPREHENSIVE METABOLIC PANE Smith 06-28-2024 Albumin [Mass/Vol] 3.0 g/dL Low 3.5-5.0 [facility] Comment on above: Performed By: #### L AB17, IDG197, ZPX075 #### Microbiology Manager: RUTH ANN BRAGG ([id number]) [facility] ([facility]) [address] ALP [Catalytic activity/Vol] 85 U/L Normal 38-126 [facility] Comment on above: Performed By: #### L AB17, TRW932, ERC079 #### Microbiology Manager: RUTH ANN BRAGG ([id number]) [facility] ([facility]) [address] ALT [Catalytic activity/Vol] 24 U/L Normal 0-34 [facility] Comment on above: Performed By: #### L AB17, ORO801, ZWH729 #### Microbiology Manager: RUTH ANN BRAGG ([phone]) [facility] ([facility]) [address] [place] [address] [place] Anion gap [Moles/Vol] 7 mmol/L Normal 3-13 [facility] Comment on above: Performed By: #### L AB17, MLQ487, EQB511 #### Microbiology Manager: RUTH ANN BRAGG ([id number]) [facility] ([facility]) [address] AST [Catalytic activity/Vol] 51 U/L High 15-46 [facility] Comment on above: Performed By: #### L AB17, QVZ777, JYL268 #### Microbiology Manager: RUTH ANN BRAGG ([phone]) [facility] ([facility]) [address] Bilirubin [Mass/Vol] 0.9 mg/dL Normal 0.2-1.3 [facility] Comment on above: Performed By: #### L AB17, XML839, RTM574 #### Microbiology Manager: RUTH ANN BRAGG ([id number]) [facility] [address] Calcium [Mass/Vol] 9.2 mg/dL Normal 8.4-10.4 [facility] Comment on above: Performed By: #### L AB17, XNB399, POR393 #### Microbiology Manager: RUTH ANN BRAGG ([phone]) [facility] [place] ([facility]) [address] Chloride [Moles/Vol] 120 mmol/L High 98-107 [facility] Comment on above: Performed By: #### L AB17, BEH318, IYH110 #### Microbiology Manager: RUTH ANN BRAGG ([id number]) [facility] ([facility]) [address] [place] [address] [place] CO2 [Moles/Vol] 19 mmol/L Low 22-30 [facility] Comment on above: Performed By: #### L AB17, QJS547, XLU562 #### Microbiology Manager: RUTH ANN BRAGG ([phone]) [facility] ([facility] [address] [place] [address] [place] Creatinine [Mass/Vol] 1.43 mg/dL High 0.52-1.04 [facility] Comment on above: Performed By: #### L AB17, PRP933, RRU326 #### Microbiology Manager: RUTH ANN BRAGG ([phone]) [facility] ([facility]) [address] GLOMERULAR FILTRATION RATE ML/MIN/1.73 SQ M.PREDICTED 37.6 mL/min/1.73m*2 Low >60.0 [facility] Comment on above: Result Comment: Calc ulation based on the Chronic Kidney Disease Epidemiology Collaboration (CKD-EPI) equation refit without adjustment for race Performed By: #### L AB17, WHC702, THM069 #### Microbiology Manager: RUTH ANN BRAGG ([id number]) [facility] ([facility]) [address] Glucose [Mass/Vol] 163 mg/dL High 70-100 [facility] Comment on above: Performed By: #### L AB17, QJH012, WUV823 #### Microbiology Manager: RUTH ANN BRAGG ([phone]) [facility] ([facility]) [address] Potassium [Moles/Vol] 3.6 mmol/L Normal 3.5-5.1 [facility] Comment on above: Performed By: #### L AB17, ESD719, OVQ449 #### Microbiology Manager: RUTH ANN BRAGG ([id number]) [facility] ([facility]) [address] Protein [Mass/Vol] 6.0 g/dL Low 6.3-8.2 [facility] Comment on above: Performed By: #### L AB17, YDW471, ATY378 #### Microbiology Manager: RUTH ANN BRAGG ([phone]) [facility] ([facility]) [address] [place] [address] [place] Sodium [Moles/Vol] 146 mmol/L High 135-145 [facility] Comment on above: Performed By: #### L AB17, PQX820, LOB225 #### Microbiology Manager: RUTH ANN BRAGG ([id number]) [facility] ([facility]) [address] Urea nitrogen [Mass/Vol] 51 mg/dL High 02-21 [facility] Comment on above: Performed By: #### L AB17, CNB686, ART870 #### Microbiology Manager: RUTH ANN BRAGG ([phone]) [facility] ([facility]) [address] Calcium.ionized [Moles/Vol]o n 06-28-2024 Calcium.ionized (Bld) [Moles/Vol] 4.7 mg/dL 4.30 - 5.20 mg/dL [facility] Interpretation and review of laboratory results Abnormal [facility] PH, IONIZED CALCIUM 7.5 High 7.31 - 7.46 [facility] Comprehensive metabolic 1998 panelon 06-28-2024 Albumin [Mass/Vol] 3 g/dL Low 3.5 - 5.0 g/dL [facility] ALP [Catalytic activity/Vol] 85 U/L 38 - 126 U/L [facility] ALT [Catalytic activity/Vol] 24 U/L 0 - 34 U/L [facility] Anion gap [Moles/Vol] 7 mmol/L 3 - 13 mmol/L [facility] AST [Catalytic activity/Vol] 51 U/L High 15 - 46 U/L [facility] Bilirubin [Mass/Vol] 0.9 mg/dL 0.2 - 1 .3 mg/dL [facility] Calcium [Mass/Vol] 9.2 mg/dL 8.4 - 10. 4 mg/dL [facility] Chloride [Moles/Vol] 120 mmol/L High 98 - 10 7 mmol/L [facility] CO2 [Moles/Vol] 19 mmol/L Low 22 - 30 mmol/L [facility] Creatinine [Mass/Vol] 1.43 mg/dL High 0.52 - 1.04 mg/dL [facility] GFR/1.73 sq M.predicted (S/P/Bld) [Vol rate/Area] 37.6 mL/min Low - PINF [facility] Glucose [Mass/Vol] 163 mg/dL High 70 - 100 mg/dL [facility] Interpretation and review of laboratory results Abnormal [facility] Potassium [Moles/Vol] 3.6 mmol/L 3.5 - 5.1 mmol/L [facility] Protein [Mass/Vol] 6 g/dL Low 6.3 - 8.2 g/dL [facility] Sodium [Moles/Vol] 146 mmol/L High 135 - 145 mmol/L [facility] Urea nitrogen [Mass/Vol] 51 mg/dL High 7 - 17 mg/dL [facility] Consulton 06-28-2024 Consult Palliative Care Initial Consult Chief Complaint: Mikle Winston is a 78 y.o. 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 Individuals present included: Chel Slaughter . Summary of the conversation: Please [...] note above. Pricilla Steinberg MD Time-based code 83303 for 16-45 minutes. Add-on code 69821 at 46 minutes and each additional 30 [...] Surgical History: Procedure Laterality Date APPENDECTOMY CARDIAC (more content not included)... Normal [facility] HEMOGLOBIN AND HEMATOCRIT, B Terrence 06-28-2024 Hematocrit (Bld) [Volume fraction] 27.4 % Low 35.0-47.0 [facility] Comment on above: Performed By: #### L [id number] #### Microbiology Manager: RUTH ANN BRAGG ([id number]) [facility] ([facility]) [address] [place] [address] Hemoglobin (Bld) [Mass/Vol] 8.5 g/dL Low 11.7-16.0 [facility] Comment on above: Performed By: #### L [id number] #### Microbiology Manager: RUTH ANN BRAGG ([phone]) [facility] ([facility]) [address] [place] [address] Hematocrit (Bld) [Volume fraction] 28.6 % Low 35.0-47.0 [facility] Comment on above: Performed By: #### L AB17, FXK670, ZNL085 #### Microbiology Manager: RUTH ANN BRAGG ([id number]) [facility] ([facility]) [address] [place] [address] Hemoglobin (Bld) [Mass/Vol] 9.0 g/dL Low 11.7-16.0 [facility] Comment on above: Performed By: #### L AB17, BRW036, AQT578 #### Microbiology Manager: RUTH ANN BRAGG ([phone]) [facility] ([facility]) [address] Hematocrit (Bld) [Volume fraction] 28.1 % Low 35.0-47.0 [facility] Comment on above: Performed By: #### L AB17, YYW301, URQ000 #### Microbiology Manager: RUTH ANN BRAGG ([id number]) [facility] ([facility]) [address] Hemoglobin (Bld) [Mass/Vol] 8.9 g/dL Low 11.7-16.0 [facility] Comment on above: Performed By: #### L AB17, MYN951, DIC218 #### Microbiology Manager: RUTH ANN BRAGG ([id number]) [facility] ([facility]) [address] Hemoglobin (Bld) [Mass/Vol]O rdered By: Jayashree Naranjo on 06-28-2024 Hematocrit (Bld) [Volume fraction] 27.4 % Low 35.0 - 47.0 % [facility] Interpretation and review of laboratory results Abnormal [facility] Hemoglobin (Bld) [Mass/Vol]o n 06-28-2024 Hematocrit (Bld) [Volume fraction] 28.6 % Low 35.0 - 47.0 % [facility] Interpretation and review of laboratory results Abnormal [facility] Hematocrit (Bld) [Volume fraction] 28.1 % Low 35.0 - 47.0 % [facility] Interpretation and review of laboratory results Abnormal [facility] Laboratory - Chemistry and C hemistry - challengeon 06-28-2024 Glucose [Mass/Vol] 208 mg/dL High 70 - 100 mg/dL [facility] Glucose [Mass/Vol] 211 mg/dL High 70 - 100 mg/dL [facility] Glucose [Mass/Vol] 208 mg/dL High 70 - 100 mg/dL [facility] Glucose [Mass/Vol] 170 mg/dL High 70 - 100 mg/dL [facility] Magnesium [Mass/Vol] 2.1 mg/dL 1.6 - 2 .3 mg/dL [facility] Ammonia (P) [Moles/Vol] 27 umol/L 9 - 30 umol/L [facility] Laboratory - Hematology and Cell countsOrdered By: Jayashree Naranjo on 06-28-2024 Hemoglobin (Bld) [Mass/Vol] 8.5 g/dL Low 11.7 - 16.0 g/dL [facility] Laboratory - Hematology and Cell countson 06-28-2024 Hemoglobin (Bld) [Mass/Vol] 9 g/dL Low 11.7 - 16.0 g/dL [facility] Hemoglobin (Bld) [Mass/Vol] 8.9 g/dL Low 11.7 - 16.0 g/dL [facility] Eosinophils (Bld) [#/Vol] 0.1 10*3/uL 0. 0 - 0.5 10*3/uL [facility] Eosinophils/100 WBC (Bld) 1 % 0 - 6 % [facility] Lymphocytes (Bld) [#/Vol] 1.1 10*3/uL 1. 0 - 4.3 10*3/uL [facility] Lymphocytes/100 WBC (Bld) 10 % Low 15 - 45 % [facility] Monocytes (Bld) [#/Vol] 1.3 10*3/uL High 0.0 - 0.9 10*3/uL [facility] Monocytes/100 WBC (Bld) 12 % 5 - 13 % [facility] Neutrophils (Bld) [#/Vol] 8.7 10*3/uL High 1. 8 - 7.5 10*3/uL [facility] RBC morphology finding Nom (Bld) Normal [facility] Segmented neutrophils/100 WBC (Bld) 78 % 38 - 82 % [facility] Laboratory - Microbiology an d Antimicrobial susceptibilityOrdered By: Christie Avila on 06-28-2024 Bacteria identified Cx Nom (U) >100,000 CFU/mL Escherichia coli Abnormal [facility] MAGNESIUMon 06-28-2024 Magnesium [Mass/Vol] 2.1 mg/dL Normal 1.6-2.3 [facility] Comment on above: Performed By: #### L AB17, [id number], ROB611 #### Microbiology Manager: RUTH ANN BRAGG ([id number]) [facility] [address] [place] [address] MANUAL DIFFERENTIAL (CELLAVI KRISTIAN)on 06-28-2024 BAND NEUTROPHILS TOTAL PER COUNTED LEUKOCYTES BY MANUAL COUNT Normal [facility] Comment on above: Performed By: #### L AB17, WAR448, CQN476 #### Microbiology Manager: RUTH ANN BRAGG ([phone]) [facility] ([facility]) [address] [place] [address] [place] BASOPHILS TOTAL PER COUNTED LEUKOCYTES BY MANUAL COUNT Normal [facility] Comment on above: Performed By: #### L AB17, TRL311, FHS484 #### Microbiology Manager: RUTH ANN BRAGG ([id number]) [facility] [place] ([facility]) [address] [place] [address] [place] BLASTS TOTAL PER COUNTED LEUKOCYTES BY MANUAL COUNT Normal [facility] Comment on above: Performed By: #### L AB17, FGK419, XWN526 #### Microbiology Manager: RUTH ANN BRAGG ([id number]) [facility] [address] [place] [address] [place] EOSINOPHILS (10*3/UL) IN BLOOD-CELLAVISION 0.1 10*3/uL Normal 0.0-0.5 [facility] Comment on above: Performed By: #### L AB17, PLN107, QDD901 #### Microbiology Manager: RUTH ANN BRAGG ([phone]) [facility] [place] ([facility]) [address] [place] [address] [place] EOSINOPHILS TOTAL PER COUNTED LEUKOCYTES BY MANUAL COUNT 1 Normal 0-1 [facility] Comment on above: Performed By: #### L AB17, NKK585, CEC611 #### Microbiology Manager: RUTH ANN BRAGG ([phone]) [facility] ([facility]) [address] [place] [address] [place] EOSINOPHILS/100 LEUKOCYTES IN BLOOD-CELLAVISION 1 % Normal 0-6 [facility] Comment on above: Performed By: #### L AB17, XQJ851, KHY964 #### Microbiology Manager: RUTH ANN BRAGG ([id number]) [facility] [place] ([facility]) [address] [place] [address] [place] LYMPHOCYTES (10*3/UL) IN BLOOD-CELLAVISION 1.1 10*3/uL Normal 1.0-4.3 [facility] Comment on above: Performed By: #### L AB17, NIG664, QQE013 #### Microbiology Manager: RUTH ANN BRAGG ([id number]) [facility] [place] ([facility]) [address] [place] [address] [place] LYMPHOCYTES TOTAL PER COUNTED LEUKOCYTES BY MANUAL COUNT 10 Normal [facility] Comment on above: Performed By: #### L AB17, AQU489, FIP697 #### Microbiology Manager: RUTH ANN BRAGG ([id number]) [facility] ([facility]) [address] [place] [address] [place] LYMPHOCYTES/100 LEUKOCYTES IN BLOOD-CELLAVISION 10 % Low 15-45 [facility] Comment on above: Performed By: #### L AB17, HPM662, DLB922 #### Microbiology Manager: RUTH ANN HERRONSHEL[place] ([id number]) [facility] [place] ([facility]) [address] [place] [address] [place] METAMYELOCYTES TOTAL PER COUNTED LEUKOCYTES BY MANUAL COUNT Normal [facility] Comment on above: Performed By: #### L AB17, JCF400, EXU970 #### Microbiology Manager: RUTH ANN HERRONSHEL[place] ([id number]) [facility] [place] ([facility]) [address] [place] [address] [place] MONOCYTES (10*3/UL) IN BLOOD-CELLAVISION 1.3 10*3/uL High 0.0-0.9 [facility] Comment on above: Performed By: #### L AB17, MYW705, SSQ926 #### Microbiology Manager: RUTH ANN BRAGG ([id number]) [facility] [place] ([facility]) [address] [place] [address] [place] MONOCYTES TOTAL PER COUNTED LEUKOCYTES BY MANUAL COUNT 12 Normal [facility] Comment on above: Performed By: #### L AB17, OJV671, PDQ526 #### Microbiology Manager: RUTH ANN BRAGG ([phone]) [facility] [place] ([facility]) [address] [place] [address] [place] MONOCYTES/100 LEUKOCYTES IN BLOOD-TOMMIE 12 % Normal 5-13 [facility] Comment on above: Performed By: #### L AB17, GOR518, PKD768 #### Microbiology Manager: RUTH ANN BRAGG ([phone]) [facility] ([facility]) [address] [place] [address] [place] MYELOCYTES COUNTED BY MANUAL COUNT [facility] Comment on above: Performed By: #### L AB17, RON642, VUG002 #### Microbiology Manager: RUTH ANN HERRONSHEL[place] ([id number]) [facility] [place] ([facility]) [address] [place] [address] [place] NEUTROPHILS TOTAL PER COUNTED LEUKOCYTES BY MANUAL COUNT 81 Normal [facility] Comment on above: Performed By: #### L AB17, KFG943, ZHU908 #### Microbiology Manager: RUTH ANN BRAGG ([id number]) [facility] [place] ([facility]) [address] [place] [address] [place] PROMYELOCYTES TOTAL PER COUNTED LEUKOCYTES BY MANUAL COUNT [facility] Comment on above: Performed By: #### L AB17, WIL825, EZQ695 #### Microbiology Manager: RUTH ANN BRAGG ([phone]) [facility] [place] ([facility]) [address] [place] [address] [place] RBC MORPHOLOGY IN BLOOD Normal Normal [facility] Comment on above: Performed By: #### L AB17, RWR141, WCD233 #### Microbiology Manager: RUTH ANN BRAGG ([phone]) [facility] [place] ([facility]) [address] [place] [address] [place] SEGMENTED NEUTROPHILS (10*3/UL) IN BLOOD-CELLAVISION 8.7 10*3/uL High 1.8-7.5 [facility] Comment on above: Performed By: #### L AB17, JPX343, EMH168 #### Microbiology Manager: RUTH ANN BRAGG ([phone]) [facility] [place] ([facility]) [address] [place] [address] [place] SEGMENTED NEUTROPHILS/100 LEUKOCYTES-CE 78 % Normal 38-82 [facility] Comment on above: Performed By: #### L AB17, SUQ947, QYF856 #### Microbiology Manager: RUTH ANN BRAGG ([id number]) [facility] [place] ([facility]) [address] UNCLASSIFIED CELLS TOTAL PER COUNTED LEUKOCYTES BY MANUAL COUNT Normal [facility] Comment on above: Performed By: #### L AB17, INA132, EDK506 #### Microbiology Manager: RUTH ANN BRAGG ([id number]) [facility] ([facility]) [address] VARIANT LYMPHOCYTES TOTAL PER COUNTED LEUKOCYTES BY MANUAL COUNT Normal [facility] Comment on above: Performed By: #### L AB17, EMQ355, RZA150 #### Microbiology Manager: RUTH ANN BRAGG ([id number]) [facility] ([facility]) [address] No Panel Informationon 06-28 Interpretation and review of laboratory results Abnormal [facility] Interpretation and review of laboratory results Abnormal [facility] Interpretation and review of laboratory results Abnormal [facility] Eosinophils Manual 1 0 - 1 [facility] Interpretation and review of laboratory results Abnormal [facility] Lymphocytes Manual 10 [facility] Monocytes Manual 12 [facility] alth Neutrophils Manual 81 [facility] Interpretation and review of laboratory results Abnormal [facility] Interpretation and review of laboratory results Normal [facility] Interpretation and review of laboratory results Normal [facility] PHOSPHORUSon 06-28-2024 Phosphate [Mass/Vol] 2.9 mg/dL Normal 2.5-4.5 [facility] Comment on above: Performed By: #### L AB17, EHQ792, OGL246 #### Microbiology Manager: RUTH ANN BRAGG ([id number]) [facility] ([facility]) [address] [place] [address] [place] Phosphate [Moles/Vol]on 06-09 Phosphate [Mass/Vol] 2.9 mg/dL 2.5 - 4 .5 mg/dL [facility] Progress Noteon 06-28-2024 Progress Note [facility], Pulmonary Critical Care and Sleep Medicine [address] [address] Critical Care Note: Patient - Mikel Winston, Age - 78 y.o. 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 Her axillary temperature is 37 ?C (98.6 ?F). Her blood pressure is 164/83 (abnormal) and her pulse is 111. Her respiration is 24 and oxygen saturation is 100%. Range Data Temperature Range: Temp: 37 ?C (98.6 ?F)Temp Av.9 ?C (98.5 ?F) Min: 36.5 ?C (97.7 ?F) Max: 37.2 ?C (99 ?F) BP Range: Systolic (24hrs), Av , Min:139 [...] 4405.6 [I.V.:2420.1; Blood:466.5; NG/GT:1519] Out: 1895 [Urine:1895] @PAU@ @[id number]@ Lines, ET tube, Devices Lines -none Medications [...] OR acetaminophen, dextrose, dextrose, glucagon (rDNA), glucose, ipratropium-albutero l, ondansetron ODT OR ondansetron, polyethylene glycol (PEG) [...] [facility]FT[facility] Lab Results Component Value Date ALKPHOS (more content not included)... Normal [facility] 30on 06-27-2024 30 Problem: Neurosensory - Adult Goal: Achieves stable [...] clotting disorders Administer blood products/factors as ordered Normal [facility] 30 Problem: Potential for Compromised Skin Integrity Goal: Skin Integrity is Maintained or Improved Outcome: Progressing Goal: Nutritional status is improving Outcome: Progressing Problem: Urinary Incontinence Goal: Perineal skin integrity is maintained or improved Outcome: Progressing Problem: Problem Interventions Goal: Promote nutritional intake Outcome: Progressing Normal [facility] [id number] 06-27-2024 [id number] Pt still lethargic and only arousable to noxious stimuli. Awaiting Palliative Care Cons prior to IA being completed. TCC will continue to follow. Normal [facility] AMMONIAon 06-27-2024 Ammonia (P) [Moles/Vol] 48 umol/L High 9-30 [facility] Comment on above: Performed By: #### L AB17, BRE815, XGA186 #### Microbiology Manager: RUTH ANN BRAGG ([id number]) [facility] ([facility]) [address] [place] [address] CALCIUM, IONIZEDon CALCIUM IONIZED 4.70 mg/dL Normal 4.30-5.20 [facility] Comment on above: Performed By: #### L AB17, [id number], EDO266 #### Microbiology Manager: RUTH ANN BRAGG ([phone]) [facility] ([facility]) [address] [place] [address] PH, IONIZED CALCIUM 7.41 Normal 7.31-7.46 [facility] Comment on above: Performed By: #### L AB17, XAY548, [id number] #### Microbiology Manager: RUTH ANN BRAGG ([id number]) [facility] ([facility]) [address] CBC W Auto Differential pane l (Bld)Ordered By: Osiel White on 06-27-2024 Erythrocyte distribution width (RBC) [Ratio] 15.3 % High 11.5 - 15.0 % [facility] Hematocrit (Bld) [Volume fraction] 27.1 % Low 35.0 - 47.0 % [facility] Hemoglobin (Bld) [Mass/Vol] 8.6 g/dL Low 11.7 - 16.0 g/dL [facility] MCH (RBC) [Entitic mass] 31 pg 26. 0 - 34.0 pg [facility] MCHC (RBC) [Mass/Vol] 31.7 % 30.5 - 36.0 % [facility] MCV (RBC) [Entitic vol] 97.8 fL 77.0 - 99.0 fL [facility] Platelet mean volume (Bld) [Entitic vol] 11.2 fL 9.0 - 12.7 fL [facility] Platelets (Bld) [#/Vol] 122 10*3/uL Low 140 - 440 10*3/uL [facility] RBC (Bld) [#/Vol] 2.77 10*6/uL Low 3.80 - 5.2 0 10*6/uL [facility] WBC (Bld) [#/Vol] 11.9 10*3/uL High 3.6 - 10.7 10*3/uL [facility] CBC WITH AUTO DIFFERENTIALon 06-27-2024 Erythrocyte distribution width (RBC) [Ratio] 15.3 % High 11.5-15.0 [facility] Comment on above: Performed By: #### Jayy AB17, [id number], RPO933 #### Microbiology Manager: RUTH ANN BRAGG ([phone]) [facility] ([facility]) [address] [place] [address] Hematocrit (Bld) [Volume fraction] 27.1 % Low 35.0-47.0 [facility] Comment on above: Performed By: #### L AB17, [id number], [id number] #### Microbiology Manager: RUTH ANN BRAGG ([phone]) [facility] ([facility]) [address] Hemoglobin (Bld) [Mass/Vol] 8.6 g/dL Low 11.7-16.0 [facility] Comment on above: Performed By: #### L AB17, CGU365, ALO031 #### Microbiology Manager: RUTH ANN BRAGG ([phone]) [facility] ([facility]) [address] MCH (RBC) [Entitic mass] 31.0 pg Normal 26.0-34.0 [facility] Comment on above: Performed By: #### L AB17, UQU980, WYE711 #### Microbiology Manager: RUTH ANN BRAGG ([id number]) [facility] ([facility]) [address] MCHC 31.7 % Normal 30.5-36.0 [facility] Comment on above: Performed By: #### L AB17, NBO245, JNJ998 #### Microbiology Manager: RUTH ANN BRAGG ([phone]) [facility]) [address] MCV (RBC) [Entitic vol] 97.8 fL Normal 77.0-99.0 [facility] Comment on above: Performed By: #### L AB17, PIK761, XDL768 #### Microbiology Manager: RUTH ANN BRAGG ([phone]) [facility] ([facility]) [address] Platelet mean volume (Bld) [Entitic vol] 11.2 fL Normal 9.0-12.7 [facility] Comment on above: Performed By: #### L AB17, ORS894, VVP309 #### Microbiology Manager: RUTH ANN BRAGG ([phone]) [facility] ([facility]) [address] [place] [address] [place] Platelets (Bld) [#/Vol] 122 10*3/uL Low 140-440 [facility] Comment on above: Performed By: #### L AB17, HEV322, IWU244 #### Microbiology Manager: RUTH ANN BRAGG ([phone]) [facility] ([facility] [address] RBC (Bld) [#/Vol] 2.77 10*6/uL Low 3.80-5.20 [facility] Comment on above: Performed By: #### L AB17, IKI385, AJU614 #### Microbiology Manager: RUTH ANN BRAGG ([id number]) [facility] ([facility]) [address] WBC (Bld) [#/Vol] 11.9 10*3/uL High 3.6-10.7 [facility] Comment on above: Performed By: #### L AB17, OZO162, TPR881 #### Microbiology Manager: RUTH ANN BRAGG ([phone]) [facility] ([facility]) [address] COMPREHENSIVE METABOLIC PANE Smith 06-27-2024 Albumin [Mass/Vol] 3.0 g/dL Low 3.5-5.0 [facility] Comment on above: Performed By: #### L AB17, [id number], IWT416 #### Microbiology Manager: RUTH ANN BRAGG ([phone]) [facility] ([facility]) [address] ALP [Catalytic activity/Vol] 64 U/L Normal 38-126 [facility] Comment on above: Performed By: #### L AB17, XDB155, GQM001 #### Microbiology Manager: RUTH ANN BRAGG ([phone]) [facility] ([facility]) [address] ALT [Catalytic activity/Vol] 20 U/L Normal 0-34 [facility] Comment on above: Performed By: #### L AB17, VFR456, ZBP446 #### Microbiology Manager: RUTH ANN BRAGG ([phone]) [facility] ([facility]) [address] Anion gap [Moles/Vol] 7 mmol/L Normal 3-13 [facility] Comment on above: Performed By: #### L AB17, [id number], OSD976 #### Microbiology Manager: RUTH ANN BRAGG ([phone]) [facility] ([facility]) [address] [place] [address] [place] AST [Catalytic activity/Vol] 41 U/L Normal 15-46 [facility] Comment on above: Performed By: #### L AB17, ZFD505, KNN526 #### Microbiology Manager: RUTH ANN BRAGG ([phone]) [facility] ([facility]) [address] Bilirubin [Mass/Vol] 0.9 mg/dL Normal 0.2-1.3 [facility] Comment on above: Performed By: #### L AB17, HYP339, KWR597 #### Microbiology Manager: RUTH ANN BRAGG ([phone]) [facility] ([facility]) [address] Calcium [Mass/Vol] 9.2 mg/dL Normal 8.4-10.4 [facility] Comment on above: Performed By: #### L AB17, DOT095, JHI784 #### Microbiology Manager: RUTH ANN BRAGG ([phone]) [facility] ([facility]) [address] Chloride [Moles/Vol] 120 mmol/L High 98-107 [facility] Comment on above: Performed By: #### L AB17, AJY970, HLX830 #### Microbiology Manager: RUTH ANN BRAGG ([phone]) [facility] ([facility]) [address] CO2 [Moles/Vol] 20 mmol/L Low 22-30 [facility] Comment on above: Performed By: #### L AB17, EEW885, SJE454 #### Microbiology Manager: RUTH ANN BRAGG ([phone]) [facility] ([facility]) [address] [place] [address] [place] Creatinine [Mass/Vol] 1.59 mg/dL High 0.52-1.04 [facility] Comment on above: Performed By: #### L AB17, BAC640, RKI327 #### Microbiology Manager: RUTH ANN BRAGG ([phone]) [facility] ([facility]) [address] [place] [address] [place] GLOMERULAR FILTRATION RATE ML/MIN/1.73 SQ M.PREDICTED 33.1 mL/min/1.73m*2 Low >60.0 [facility] Comment on above: Result Comment: Calc ulation based on the Chronic Kidney Disease Epidemiology Collaboration (CKD-EPI) equation refit without adjustment for race Performed By: #### L AB17, WLE726, XMS130 #### Microbiology Manager: RUTH ANN BRAGG ([phone]) [facility] ([facility]) [address] Glucose [Mass/Vol] 159 mg/dL High 70-100 [facility] Comment on above: Performed By: #### L AB17, LGP712, JLM872 #### Microbiology Manager: RUTH ANN BRAGG ([phone]) [facility] ([facility]) [address] Potassium [Moles/Vol] 3.3 mmol/L Low 3.5-5.1 [facility] Comment on above: Performed By: #### L AB17, UGR540, MYM695 #### Microbiology Manager: RUTH ANN BRAGG ([phone]) [facility] ([facility]) [address] Protein [Mass/Vol] 6.0 g/dL Low 6.3-8.2 [facility] Comment on above: Performed By: #### L AB17, ATH663, NXO546 #### Microbiology Manager: RUTH ANN BRAGG ([phone]) [facility] ([facility]) [address] [place] [address] [place] Sodium [Moles/Vol] 147 mmol/L High 135-145 [facility] Comment on above: Performed By: #### L AB17, BXT808, YGY547 #### Microbiology Manager: RUTH ANN BRAGG ([phone]) [facility] ([facility]) [address] [place] [address] [place] Urea nitrogen [Mass/Vol] 51 mg/dL High 7-17 [facility] Comment on above: Performed By: #### L AB17, WDT488, LES292 #### Microbiology Manager: RUTH ANN BRAGG ([phone]) [facility] ([facility]) [address] Calcium.ionized [Moles/Vol]o n 06-27-2024 Calcium.ionized (Bld) [Moles/Vol] 4.7 mg/dL 4.30 - 5.20 mg/dL [facility] Interpretation and review of laboratory results Normal [facility] PH, IONIZED CALCIUM 7.41 7.31 - 7.46 [facility] Comprehensive metabolic 1998 panelon 06-27-2024 Albumin [Mass/Vol] 3 g/dL Low 3.5 - 5.0 g/dL [facility] ALP [Catalytic activity/Vol] 64 U/L 38 - 126 U/L [facility] ALT [Catalytic activity/Vol] 20 U/L 0 - 34 U/L [facility] Anion gap [Moles/Vol] 7 mmol/L 3 - 13 mmol/L [facility] AST [Catalytic activity/Vol] 41 U/L 15 - 46 U/L [facility] Bilirubin [Mass/Vol] 0.9 mg/dL 0.2 - 1 .3 mg/dL [facility] Calcium [Mass/Vol] 9.2 mg/dL 8.4 - 10. 4 mg/dL [facility] Chloride [Moles/Vol] 120 mmol/L High 98 - 10 7 mmol/L [facility] CO2 [Moles/Vol] 20 mmol/L Low 22 - 30 mmol/L [facility] Creatinine [Mass/Vol] 1.59 mg/dL High 0.52 - 1.04 mg/dL [facility] GFR/1.73 sq M.predicted (S/P/Bld) [Vol rate/Area] 33.1 mL/min Low - PINF [facility] Glucose [Mass/Vol] 159 mg/dL High 70 - 100 mg/dL [facility] Interpretation and review of laboratory results Abnormal [facility] Potassium [Moles/Vol] 3.3 mmol/L Low 3.5 - 5.1 mmol/L [facility] Protein [Mass/Vol] 6 g/dL Low 6.3 - 8.2 g/dL [facility] Sodium [Moles/Vol] 147 mmol/L High 135 - 145 mmol/L [facility] Urea nitrogen [Mass/Vol] 51 mg/dL High 7 - 17 mg/dL [facility] HEMOGLOBIN AND HEMATOCRIT, B LOODon 06-27-2024 Hematocrit (Bld) [Volume fraction] 27.7 % Low 35.0-47.0 [facility] Comment on above: Performed By: #### L AB17, [id number], GOR385 #### Microbiology Manager: RUTH ANN BRAGG ([phone]) [facility] [address] Hemoglobin (Bld) [Mass/Vol] 8.7 g/dL Low 11.7-16.0 [facility] Comment on above: Performed By: #### L AB17, TLC672, UMD597 #### Microbiology Manager: RUTH ANN BRAGG ([phone]) [facility] [address] Hematocrit (Bld) [Volume fraction] 28.1 % Low 35.0-47.0 [facility] Comment on above: Performed By: #### L AB17, YXU432, IOM657 #### Microbiology Manager: RUTH ANN BRAGG ([phone]) [facility] [address] [place] [address] [place] Hemoglobin (Bld) [Mass/Vol] 9.0 g/dL Low 11.7-16.0 [facility] Comment on above: Performed By: #### L AB17, USE597, GDH503 #### Microbiology Manager: RUTH ANN BRAGG ([phone]) [facility] [address] [place] [address] [place] Hematocrit (Bld) [Volume fraction] 29.0 % Low 35.0-47.0 [facility] Comment on above: Performed By: #### L AB17, SQS837, IWQ736 #### Microbiology Manager: RUTH ANN BRAGG ([phone]) [facility] [address] [place] [address] [place] Hemoglobin (Bld) [Mass/Vol] 9.3 g/dL Low 11.7-16.0 [facility] Comment on above: Performed By: #### L AB17, XRF419, UXO099 #### Microbiology Manager: RUTH ANN BRAGG ([phone]) [facility] ([facility]) [address] Hematocrit (Bld) [Volume fraction] 27.1 % Low 35.0-47.0 [facility] Comment on above: Performed By: #### L AB17, FSH125, SOH681 #### Microbiology Manager: RUTH ANN BRAGG ([phone]) [facility] ([facility]) [address] Hemoglobin (Bld) [Mass/Vol] 8.7 g/dL Low 11.7-16.0 [facility] Comment on above: Performed By: #### L AB17, MGY569, JFH279 #### Microbiology Manager: RUTH ANN BRAGG ([phone]) [facility] ([facility]) [address] [place] [address] Hemoglobin (Bld) [Mass/Vol]o n 06-27-2024 Hematocrit (Bld) [Volume fraction] 27.7 % Low 35.0 - 47.0 % [facility] Interpretation and review of laboratory results Abnormal [facility] Hematocrit (Bld) [Volume fraction] 28.1 % Low 35.0 - 47.0 % [facility] Interpretation and review of laboratory results Abnormal [facility] Hematocrit (Bld) [Volume fraction] 29 % Low 35.0 - 47.0 % [facility] Interpretation and review of laboratory results Abnormal [facility] Hematocrit (Bld) [Volume fraction] 27.1 % Low 35.0 - 47.0 % [facility] Interpretation and review of laboratory results Abnormal [facility] Laboratory - Chemistry and C hemistry - challengeon 06-27-2024 Glucose [Mass/Vol] 188 mg/dL High 70 - 100 mg/dL [facility] Glucose [Mass/Vol] 159 mg/dL High 70 - 100 mg/dL [facility] Glucose [Mass/Vol] 186 mg/dL High 70 - 100 mg/dL [facility] Glucose [Mass/Vol] 168 mg/dL High 70 - 100 mg/dL [facility] Magnesium [Mass/Vol] 2 mg/dL 1.6 - 2 .3 mg/dL [facility] Ammonia (P) [Moles/Vol] 48 umol/L High 9 - 30 umol/L [facility] Glucose [Mass/Vol] 195 mg/dL High 70 - 100 mg/dL [facility] Laboratory - Hematology and Cell countson 06-27-2024 Hemoglobin (Bld) [Mass/Vol] 8.7 g/dL Low 11.7 - 16.0 g/dL [facility] Hemoglobin (Bld) [Mass/Vol] 9 g/dL Low 11.7 - 16.0 g/dL [facility] Hemoglobin (Bld) [Mass/Vol] 9.3 g/dL Low 11.7 - 16.0 g/dL [facility] Anisocytosis Ql (Bld) Slight Abnormal (none) [facility] Lymphocytes (Bld) [#/Vol] 0.6 10*3/uL Low 1. 0 - 4.3 10*3/uL [facility] Lymphocytes/100 WBC (Bld) 5 % Low 15 - 45 % [facility] Monocytes (Bld) [#/Vol] 0.7 10*3/uL 0.0 - 0.9 10*3/uL [facility] Monocytes/100 WBC (Bld) 6 % 5 - 13 % [facility] Neutrophils (Bld) [#/Vol] 10.6 10*3/uL High 1. 8 - 7.5 10*3/uL [facility] Ovalocytes LM Ql (Bld) Slight Abnormal (none) [facility] Poikilocytosis LM Ql (Bld) Slight Abnormal (none) [facility] RBC morphology finding Nom (Bld) abnormal [facility] Segmented neutrophils/100 WBC (Bld) 89 % High 38 - 82 % [facility] Target cells LM Ql (Bld) Slight Abnormal (none) [facility] Hemoglobin (Bld) [Mass/Vol] 8.7 g/dL Low 11.7 - 16.0 g/dL [facility] MAGNESIUMon 06-27-2024 Magnesium [Mass/Vol] 2.0 mg/dL Normal 1.6-2.3 [facility] Comment on above: Performed By: #### L AB17, [id number], NPO257 #### Microbiology Manager: RUTH ANNMELANIE BRAGG ([phone]) [facility] [place] ([facility]) [address] MANUAL DIFFERENTIAL (CELLAVI KRISTIAN)on 06-27-2024 ANISOCYTOSIS PRESENCE IN BLOOD BY LIGHT MICROSCOPY Slight Abnormal (none) [facility] Comment on above: Performed By: #### L AB17, RAE689, SON581 #### Microbiology Manager: RUTH ANNMELANIE BRAGG ([phone]) [facility] [place] ([facility]) [address] BAND NEUTROPHILS TOTAL PER COUNTED LEUKOCYTES BY MANUAL COUNT Normal [facility] Comment on above: Performed By: #### L AB17, NDE138, OXQ550 #### Microbiology Manager: RUTH ANNMELANIE BRAGG ([phone]) [facility] [place] ([facility]) [address] BASOPHILS TOTAL PER COUNTED LEUKOCYTES BY MANUAL COUNT Normal [facility] Comment on above: Performed By: #### L AB17, XDJ545, BBU495 #### Microbiology Manager: RUTH ANN YEMI ([phone]) [facility] [place] ([facility]) [address] BLASTS TOTAL PER COUNTED LEUKOCYTES BY MANUAL COUNT Normal [facility] Comment on above: Performed By: #### L AB17, LJD594, IWO769 #### Microbiology Manager: RUTH ANN OBREGONWILTON ([phone]) [facility] [place] ([facility]) [address] EOSINOPHILS TOTAL PER COUNTED LEUKOCYTES BY MANUAL COUNT Normal [facility] Comment on above: Performed By: #### L AB17, RPS568, AWM421 #### Microbiology Manager: RUTH ANN OBREGONWILTON ([phone]) [facility] [place] ([facility]) [address] [place] [address] [place] LYMPHOCYTES (10*3/UL) IN BLOOD-CELLAVISION 0.6 10*3/uL Low 1.0-4.3 [facility] Comment on above: Performed By: #### L AB17, TYW723, VXG867 #### Microbiology Manager: RUTH ANN YEMI ([phone]) [facility] [place] ([facility]) [address] [place] [address] [place] LYMPHOCYTES TOTAL PER COUNTED LEUKOCYTES BY MANUAL COUNT 5 Normal [facility] Comment on above: Performed By: #### L AB17, UJM161, YHI937 #### Microbiology Manager: RUTH ANN YEMI ([phone]) [facility] ([facility]) [address] [place] [address] [place] LYMPHOCYTES/100 LEUKOCYTES IN BLOOD-CELLAVISION 5 % Low 15-45 [facility] Comment on above: Performed By: #### L AB17, TMC316, OGG632 #### Microbiology Manager: RUTH ANNMELANIE BRAGG ([phone]) [facility] [address] [place] [address] [place] METAMYELOCYTES TOTAL PER COUNTED LEUKOCYTES BY MANUAL COUNT Normal [facility] Comment on above: Performed By: #### L AB17, CEK877, LFT816 #### Microbiology Manager: RUTH ANNMELANIE BRAGG ([phone]) [facility] [place] ([facility]) [address] [place] [address] [place] MONOCYTES (10*3/UL) IN BLOOD-CELLAVISION 0.7 10*3/uL Normal 0.0-0.9 [facility] Comment on above: Performed By: #### L AB17, FNN674, XXT472 #### Microbiology Manager: RUTH ANN YEMI ([phone]) [facility] ([facility]) [address] [place] [address] [place] MONOCYTES TOTAL PER COUNTED LEUKOCYTES BY MANUAL COUNT 6 Normal [facility] Comment on above: Performed By: #### L AB17, FBL371, ZYA551 #### Microbiology Manager: RUTH ANN OBREGONWILTON ([phone]) [facility] ([facility]) [address] [place] [address] [place] MONOCYTES/100 LEUKOCYTES IN BLOOD-TOMMIE 6 % Normal 5-13 [facility] Comment on above: Performed By: #### L AB17, RPW134, LEL435 #### Microbiology Manager: RUTH ANN BRAGG ([phone]) [facility] [place] ([facility]) [address] MYELOCYTES COUNTED BY MANUAL COUNT [facility] Comment on above: Performed By: #### L AB17, RAA301, VXY492 #### Microbiology Manager: RUTH ANN BRAGG ([phone]) [facility] [place] ([facility]) [address] [place] [address] [place] NEUTROPHILS TOTAL PER COUNTED LEUKOCYTES BY MANUAL COUNT 89 Normal [facility] Comment on above: Performed By: #### L AB17, PKV790, JMT995 #### Microbiology Manager: RUTH ANN BRAGG ([id number]) [facility] [place] ([facility]) [address] OVALOCYTES PRESENCE IN BLOOD BY LIGHT MICROSCOPY Slight Abnormal (none) [facility] Comment on above: Performed By: #### L AB17, DBW107, KEO507 #### Microbiology Manager: RUTH ANN BRAGG ([phone]) [facility] [place] ([facility] [address] [place] [address] [place] POIKILOCYTOSIS (PRESENCE) IN BLOOD BY LIGHT MICROSCOPY Slight Abnormal (none) [facility] Comment on above: Performed By: #### L AB17, EQF351, OUU799 #### Microbiology Manager: RUTH ANN BRAGG ([phone]) [facility] [place] [facility]) [address] [place] [address] [place] PROMYELOCYTES TOTAL PER COUNTED LEUKOCYTES BY MANUAL COUNT [facility] Comment on above: Performed By: #### L AB17, CTI593, VTF348 #### Microbiology Manager: RUTH ANN BRAGG ([phone]) [facility] [place] ([facility]) [address] [place] [address] [place] RBC MORPHOLOGY IN BLOOD abnormal Normal [facility] Comment on above: Performed By: #### L AB17, IGD288, KXH764 #### Microbiology Manager: RUTH ANN BRAGG ([phone]) [facility] [place] ([facility] [address] SEGMENTED NEUTROPHILS (10*3/UL) IN BLOOD-CELLAVISION 10.6 10*3/uL High 1.8-7.5 [facility] Comment on above: Performed By: #### L AB17, WKO993, OVH370 #### Microbiology Manager: RUTH ANN BRAGG ([phone]) [facility] ([facility]) [address] SEGMENTED NEUTROPHILS/100 LEUKOCYTES-CE 89 % High 38-82 [facility] Comment on above: Performed By: #### L AB17, FRB797, PTU588 #### Microbiology Manager: RUTH ANN BRAGG ([phone]) [facility] [place] ([facility]) [address] TARGET CELLS IN BLOOD BY LIGHT MICROSCOPY Slight Abnormal (none) [facility] Comment on above: Performed By: #### L AB17, SDT658, DRR929 #### Microbiology Manager: RUTH ANN BRAGG ([phone]) [facility] [place] ([facility]) [address] UNCLASSIFIED CELLS TOTAL PER COUNTED LEUKOCYTES BY MANUAL COUNT [facility] Comment on above: Performed By: #### L AB17, NWS086, BND178 #### Microbiology Manager: RUTH ANN BRAGG ([phone]) [facility] ([facility]) [address] VARIANT LYMPHOCYTES TOTAL PER COUNTED LEUKOCYTES BY MANUAL COUNT Normal [facility] Comment on above: Performed By: #### L AB17, EDM700, UGP693 #### Microbiology Manager: RUTH ANN BRAGG ([phone]) [facility] ([facility]) [address] No Panel Informationon 06-27 Interpretation and review of laboratory results Abnormal [facility] Interpretation and review of laboratory results Abnormal [facility] Interpretation and review of laboratory results Abnormal [facility] Interpretation and review of laboratory results Abnormal [facility] Interpretation and review of laboratory results Normal [facility] Lymphocytes Manual 5 [facility] Monocytes Manual 6 [facility] Neutrophils Manual 89 [facility] Interpretation and review of laboratory results Abnormal [facility] Interpretation and review of laboratory results Abnormal [facility] No Panel InformationOrdered By: Osiel White on 06-27-2024 Interpretation and review of laboratory results Abnormal [facility] PHOSPHORUSon 06-27-2024 Phosphate [Mass/Vol] 3.7 mg/dL Normal 2.5-4.5 [facility] Comment on above: Performed By: #### L AB17, ZWB188, WBL142 #### Microbiology Manager: RUTH ANN BRAGG ([phone]) [facility] [address] Phosphate [Moles/Vol]on 06-09 Phosphate [Mass/Vol] 3.7 mg/dL 2.5 - 4 .5 mg/dL [facility] Progress Noteon 06-27-2024 Progress Note [facility], Pulmonary Critical Care and Sleep Medicine [address], [place] [address] Critical Care Note: Patient - Mikel Winston, Age - 78 y.o. - 1945 Room Number - [id number] A N - [id number] [facility] # - [id number] Date of Admission - 06/25/2024 5:04 PM Hospital Day - 2 HPI/Subjective 78-year-old female, with past medical history significant for coronary artery disease, type 2 diabetes, hypertension, cirrhosis transferred from [facility] to ICU for altered mental status [...] artery disease involving coronary bypass graft of [place] heart without angina pectoris Nonrheumatic aortic valve [...] (5' 4). Her axillary temperature is 36.9 ?C (98.4 ?F). Her blood pressure is 126/62 and her pulse is 109. Her respiration is 14 and oxygen saturation is 100%. Range Data Temperature Range: Temp: 36.9 ?C (98.4 ?F)Temp Av.8 ?C (98.3 ?F) Min: 36.6 ?C (97.9 ?F) Max: 37.1 ?C (98.7 ?F) BP Range: Systolic (24hrs), Av , Min:102 [...] [I.V.:1036.1; Blood:466.5; NG/GT:173] Out: 945 [Urine:945] @IODETAILS@ @[email or web address]@ Lines, ET tube, Devices Lines -none Medications [...] OR acetaminophen, dextrose, dextrose, glucagon (rDNA), glucose, ipratropium-albutero l, ondansetron ODT OR ondansetron, polyethylene glycol (PEG) 3350, sodium chloride, sodium chloride, sodium chloride, sodium chloride 0.9% IV sodium chloride, 50 mL/hr, Last Rate: 50 mL/hr (06/25/24 184) Diet/Nutrition Diet, tube feeding no tray Nasogastric; [...] 06/27/2024 GLUCOSE 159 (H) 06/27/2024 MG 2.0 (more content not included)... Normal [facility] 30on 06-26-2024 30 Problem: Knowledge Deficit Goal: Patient/family/careg iver demonstrates understanding of disease process, treatment plan, medications, and discharge instructions Outcome: Not Progressing Problem: Urinary Incontinence Goal: Perineal skin integrity is maintained or improved Outcome: Not Progressing Normal [facility] [id number] 06-26-2024 [id number] [employer]IC[employer] paged for decline in mental status. Per primary RN, pt was opening eyes to verbal stimuli previously in the shift, but is now only responding to painful stimuli. VSS. Pupils 2mm, equal and reactive to light. Pt also with several episodes of bloody stool, and one episode of emesis during rapid response. Dr. Saavedra at bedside. IV Zofran given per order. Labs drawn and sent. Pt then taken to CT scan by this RN and primary RN. Pt to remain on GMF at this time. Normal [facility] AMMONIAon 06-26-2024 Ammonia (P) [Moles/Vol] 134 umol/L High 9-30 S [facility] Comment on above: Performed By: #### L AB17, [id number], JAX203 #### Microbiology Manager: RUTH ANN BRAGG ([phone]) [facility] ([facility]) [address] [place] [address] BLOOD GAS ARTERIALon 024 Base excess Calc (Bld) [Moles/Vol] -2.4000 mmol/L Normal -3.0-3.0 [facility] Comment on above: Performed By: #### L AB17, [id number], NEO543 #### Microbiology Manager: RUTH ANN BRAGG ([phone]) [facility] ([facility]) [address] CO2 [Moles/Vol] 21.5 mmol/L Low 22.0-28.0 [facility] Comment on above: Performed By: #### L AB17, CZI320, UXF945 #### Microbiology Manager: RUTH ANN BRAGG ([phone]) [facility] [address] HCO3 (Bld) [Moles/Vol] 20.7 mmol/L Low 21.0-27.0 [facility] Comment on above: Performed By: #### Jayy AB17, PVJ540, UQJ249 #### Microbiology Manager: RUTH ANN BRAGG ([phone]) [facility] ([facility]) [address] Hemoglobin (Bld) [Mass/Vol] 8.6 g/dL Low Screen only [facility] Comment on above: Performed By: #### L AB17, QGY603, TZE098 #### Microbiology Manager: RUTH ANN BRAGG ([phone]) [facility] [address] OXYGEN SATURATION (%) IN ARTERIAL BLOOD 96.6 % Low 97.0-99.0 [facility] Comment on above: Performed By: #### L AB17, ZUQ953, JIM722 #### Microbiology Manager: RUTH ANN BRAGG ([phone]) [facility] ([facility]) [address] [place] [address] [place] PCO2 ARTERIAL 29.1 mm Hg Low 32.0-45.0 [facility] Comment on above: Performed By: #### L AB17, KNC142, AHN583 #### Microbiology Manager: RUTH ANN BRAGG ([phone]) [facility] ([facility] [address] PH ARTERIAL 7.469 High 7.350-7.450 [facility] Comment on above: Performed By: #### L AB17, DPL933, JWA110 #### Microbiology Manager: RUTH ANN BRAGG ([phone]) [facility] ([facility]) [address] PO2 ARTERIAL 97.0 mm Hg Normal 83.0-108.0 [facility] Comment on above: Performed By: #### L AB17, QOP332, CRU655 #### Microbiology Manager: RUTH ANN BRAGG ([phone]) [facility] ([facility]) [address] SOURCE OF OXYGEN Room Air Normal [facility] Comment on above: Performed By: #### L AB17, [id number], HHO453 #### Microbiology Manager: RUTH ANN BRAGG ([phone]) [facility] ([facility]) [address] BLOOD TYPE AND SCREEN GELon 06-26-2024 ABO GROUPING O Normal [facility] Comment on above: Performed By: #### L AB17, UGT193, MGK315 #### Microbiology Manager: RUTH ANN BRAGG ([phone]) [facility] ([facility]) [address] RH TYPE IN BLOOD Positive Normal [facility] Comment on above: Performed By: #### L AB17, [id number], [id number] #### Microbiology Manager: RUTH ANN BRAGG ([phone]) [facility] ([facility]) [address] Blood type and Crossmatch pa maryann (Bld)on 06-26-2024 ABO group Nom (Bld) O [facility] Blood group antibody screen GEL Ql Negative [facility] D Ag Ql (RBC) Positive [facility] CBC (HEMOGRAM)on 06-26-2024 Erythrocyte distribution width (RBC) [Ratio] 15.0 % Normal 11.5-15.0 [facility] Comment on above: Performed By: #### L AB294 #### Microbiology Manager: RUTH ANN BRAGG ([phone]) [facility] [address] Hematocrit (Bld) [Volume fraction] 27.2 % Low 35.0-47.0 [facility] Comment on above: Performed By: #### L AB294 #### Microbiology Manager: RUTH ANN BRAGG ([phone]) [facility] [address] Hemoglobin (Bld) [Mass/Vol] 8.5 g/dL Low 11.7-16.0 [facility] Comment on above: Performed By: #### L AB294 #### Microbiology Manager: RUTH ANN BRAGG ([phone]) [facility] [address] MCH (RBC) [Entitic mass] 31.5 pg Normal 26.0-34.0 [facility] Comment on above: Performed By: #### L AB294 #### Microbiology Manager: RUTH ANN BRAGG ([phone]) [facility] ([facility]) [address] MCHC 31.3 % Normal 30.5-36.0 [facility] Comment on above: Performed By: #### L AB294 #### Microbiology Manager: RUTH ANN BRAGG ([phone]) [facility] [address] MCV (RBC) [Entitic vol] 100.7 fL High 77.0-99.0 S [facility] Comment on above: Performed By: #### L AB294 #### Microbiology Manager: RUTH ANN BRAGG ([phone]) [facility] ([facility] [address] Platelet mean volume (Bld) [Entitic vol] 11.1 fL Normal 9.0-12.7 [facility] Comment on above: Performed By: #### L AB294 #### Microbiology Manager: RUTH ANN BRAGG ([phone]) [facility] ([facility]) [address] Platelets (Bld) [#/Vol] 127 10*3/uL Low 140-440 [facility] Comment on above: Performed By: #### L AB294 #### Microbiology Manager: RUTH ANN BRAGG ([phone]) [facility] ([facility]) [address] RBC (Bld) [#/Vol] 2.70 10*6/uL Low 3.80-5.20 [facility] Comment on above: Performed By: #### L AB294 #### Microbiology Manager: RUTH ANN BRAGG ([phone]) [facility] ([facility]) [address] WBC (Bld) [#/Vol] 7.9 10*3/uL Normal 3.6-10.7 [facility] Comment on above: Performed By: #### L AB294 #### Microbiology Manager: RUTH ANN BRAGG ([phone]) [facility] [address] CBC W Auto Differential pane l (Bld)on 06-26-2024 Basophils (Bld) [#/Vol] 0 10*3/uL 0.0 - 0.2 10*3/uL [facility] Basophils/100 WBC (Bld) 0.5 % 0.0 - 2.0 % [facility] Eosinophils (Bld) [#/Vol] 0 10*3/uL 0. 0 - 0.5 10*3/uL [facility] Eosinophils/100 WBC (Bld) 0.2 % 0.0 - 6.0 % [facility] Erythrocyte distribution width (RBC) [Ratio] 14.6 % 11.5 - 15.0 % [facility] Hematocrit (Bld) [Volume fraction] 25.3 % Low 35.0 - 47.0 % [facility] Hemoglobin (Bld) [Mass/Vol] 7.9 g/dL Low 11.7 - 16.0 g/dL [facility] Immature granulocytes (Bld) [#/Vol] 0 10*3/uL NINF - 0.1 10*3/uL [facility] Immature granulocytes/100 WBC (Bld) 0.5 % 0.0 - 2.0 % [facility] Interpretation and review of laboratory results Abnormal [facility] IPF 3 [facility] Lymphocytes (Bld) [#/Vol] 0.8 10*3/uL Low 1. 0 - 4.3 10*3/uL [facility] Lymphocytes/100 WBC (Bld) 12.7 % Low 15 .0 - 45.0 % [facility] MCH (RBC) [Entitic mass] 30.3 pg 26. 0 - 34.0 pg [facility] MCHC (RBC) [Mass/Vol] 31.2 % 30.5 - 36.0 % [facility] MCV (RBC) [Entitic vol] 96.9 fL 77.0 - 99.0 fL [facility] Monocytes (Bld) [#/Vol] 0.8 10*3/uL 0.0 - 0.9 10*3/uL [facility] Monocytes/100 WBC (Bld) 12.7 % 5.0 - 13.0 % [facility] Neutrophils (Bld) [#/Vol] 4.9 10*3/uL 1. 8 - 7.5 10*3/uL [facility] Neutrophils/100 WBC (Bld) 73.4 % 38 .0 - 82.0 % [facility] Nucleated RBC/100 WBC (Bld) [Ratio] 0 % [facility] Platelet mean volume (Bld) [Entitic vol] 11.2 fL 9.0 - 12.7 fL [facility] Platelets (Bld) [#/Vol] 106 10*3/uL Low 140 - 440 10*3/uL [facility] RBC (Bld) [#/Vol] 2.61 10*6/uL Low 3.80 - 5.2 0 10*6/uL [facility] WBC (Bld) [#/Vol] 6.6 10*3/uL 3.6 - 10.7 10*3/uL [facility] CBC WITH AUTO DIFFERENTIALon 06-26-2024 Basophils (Bld) [#/Vol] 0.0 10*3/uL Normal 0.0-0.2 [facility] Comment on above: Performed By: #### L AB17, [id number], GVF562 #### Microbiology Manager: RUTH ANN BRAGG ([phone]) [facility] ([facility]) [address] Basophils/100 WBC (Bld) 0.5 % Normal 0.0-2.0 [facility] Comment on above: Performed By: #### L AB17, NXT817, ZBK666 #### Microbiology Manager: RUTH ANN BRAGG ([phone]) [facility] [address] Eosinophils (Bld) [#/Vol] 0.0 10*3/uL Normal 0.0-0.5 [facility] Comment on above: Performed By: #### L AB17, MPN166, LLK059 #### Microbiology Manager: RUTH ANN BRAGG ([phone]) [facility] ([facility] [address] Eosinophils/100 WBC (Bld) 0.2 % Normal 0.0-6.0 [facility] Comment on above: Performed By: #### L AB17, [id number], SPF527 #### Microbiology Manager: RUTH ANN BRAGG ([phone]) [facility] ([facility]) [address] [place] [address] Erythrocyte distribution width (RBC) [Ratio] 14.6 % Normal 11.5-15.0 [facility] Comment on above: Performed By: #### L AB17, NIC137, QXG029 #### Microbiology Manager: RUTH ANN BRAGG ([phone]) [facility] ([facility]) [address] Hematocrit (Bld) [Volume fraction] 25.3 % Low 35.0-47.0 [facility] Comment on above: Performed By: #### L AB17, EHX104, VPK047 #### Microbiology Manager: RUTH ANN PRITCHARDCER ([phone]) [facility] ([facility]) [address] Hemoglobin (Bld) [Mass/Vol] 7.9 g/dL Low 11.7-16.0 [facility] Comment on above: Performed By: #### L AB17, HZQ192, CRF409 #### Microbiology Manager: RUTH ANN OBREGONWILTON ([id number]) [facility] ([facility]) [address] IMMATURE GRANS % 0.5 % Normal 0.0-2.0 [facility] Comment on above: Performed By: #### L AB17, IKJ299, HCN796 #### Microbiology Manager: RUTH ANN YEMI ([phone]) [facility] ([facility] [address] IMMATURE GRANS ABSOLUTE 0.0 10*3/uL Normal <0.1 [facility] Comment on above: Performed By: #### L AB17, KET781, RND073 #### Microbiology Manager: RUTH ANN YEMI ([phone]) [facility] ([facility] [address] [place] [address] [place] IPF 3 Normal [facility] Comment on above: Performed By: #### L AB17, THI960, JFR667 #### Microbiology Manager: RUTH ANN YEMI ([phone]) [facility] ([facility] [address] Lymphocytes (Bld) [#/Vol] 0.8 10*3/uL Low 1.0-4.3 [facility] Comment on above: Performed By: #### L AB17, BBZ110, QKJ405 #### Microbiology Manager: RUTH ANN OBREGONWILTON ([phone]) [facility] ([facility] [address] Lymphocytes/100 WBC (Bld) 12.7 % Low 15.0-45.0 [facility] Comment on above: Performed By: #### L AB17, NTI807, NFF422 #### Microbiology Manager: RUTH ANN BRAGG ([phone]) [facility] ([facility]) [address] MCH (RBC) [Entitic mass] 30.3 pg Normal 26.0-34.0 [facility] Comment on above: Performed By: #### L AB17, IMT681, TPV795 #### Microbiology Manager: RUTH ANN HERRONSHELTON ([phone]) [facility] ([facility]) [address] MCHC 31.2 % Normal 30.5-36.0 [facility] Comment on above: Performed By: #### L AB17, VXR067, RZZ530 #### Microbiology Manager: RUTH ANN HERRONSHELTON ([phone]) [facility] ([facility]) [address] MCV (RBC) [Entitic vol] 96.9 fL Normal 77.0-99.0 S [facility] Comment on above: Performed By: #### L AB17, OIU075, XGS160 #### Microbiology Manager: RUTH ANN BRAGG ([phone]) [facility] ([facility]) [address] Monocytes (Bld) [#/Vol] 0.8 10*3/uL Normal 0.0-0.9 [facility] Comment on above: Performed By: #### L AB17, WLU833, LKD384 #### Microbiology Manager: RUTH ANN BRAGG ([phone]) [facility] ([facility]) [address] Monocytes/100 WBC (Bld) 12.7 % Normal 5.0-13.0 S [facility] Comment on above: Performed By: #### L AB17, DZY582, YZR938 #### Microbiology Manager: RUTH ANN BRAGG ([id number]) [facility] ([facility]) [address] NEUTROPHILS ABSOLUTE 4.9 10*3/uL Normal 1.8-7.5 [facility] Comment on above: Performed By: #### L AB17, PVY075, IHH550 #### Microbiology Manager: RUTH ANN BRAGG ([phone]) [facility] [place] ([facility]) [address] Neutrophils/100 WBC (Bld) 73.4 % Normal 38.0-82.0 [facility] Comment on above: Performed By: #### L AB17, EQC320, UFK950 #### Microbiology Manager: RUTH ANN BRAGG ([phone]) [facility] ([facility]) [address] NRBC 0.0 /100 WBCs Normal 0.0-2.0 [facility] Comment on above: Performed By: #### L AB17, FMS690, OAW791 #### Microbiology Manager: RUTH ANN BRAGG ([phone]) [facility] [address] Platelet mean volume (Bld) [Entitic vol] 11.2 fL Normal 9.0-12.7 [facility] Comment on above: Performed By: #### L AB17, UCV062, MDW312 #### Microbiology Manager: RUTH ANN BRAGG ([phone]) [facility] ([facility] [address] Platelets (Bld) [#/Vol] 106 10*3/uL Low 140-440 [facility] Comment on above: Performed By: #### L AB17, ZBB920, CWD385 #### Microbiology Manager: RUTH ANN BRAGG ([id number]) [facility] ([facility]) [address] [place] [address] [place] RBC (Bld) [#/Vol] 2.61 10*6/uL Low 3.80-5.20 [facility] Comment on above: Performed By: #### L AB17, BIV926, MZE900 #### Microbiology Manager: RUTH ANN BRAGG ([phone]) [facility] ([facility]) [address] WBC (Bld) [#/Vol] 6.6 10*3/uL Normal 3.6-10.7 [facility] Comment on above: Performed By: #### L AB17, GON839, TQK568 #### Microbiology Manager: RUTH ANN BRAGG ([phone]) [facility] ([facility]) [address] CBC panel Auto (Bld)on 06-26 Erythrocyte distribution width (RBC) [Ratio] 15 % 11.5 - 15.0 % [facility] Hematocrit (Bld) [Volume fraction] 27.2 % Low 35.0 - 47.0 % [facility] Hemoglobin (Bld) [Mass/Vol] 8.5 g/dL Low 11.7 - 16.0 g/dL [facility] Interpretation and review of laboratory results Abnormal [facility] MCH (RBC) [Entitic mass] 31.5 pg 26. 0 - 34.0 pg [facility] MCHC (RBC) [Mass/Vol] 31.3 % 30.5 - 36.0 % [facility] MCV (RBC) [Entitic vol] 100.7 fL High 77.0 - 99.0 fL [facility] Platelet mean volume (Bld) [Entitic vol] 11.1 fL 9.0 - 12.7 fL [facility] Platelets (Bld) [#/Vol] 127 10*3/uL Low 140 - 440 10*3/uL [facility] RBC (Bld) [#/Vol] 2.7 10*6/uL Low 3.80 - 5.2 0 10*6/uL [facility] WBC (Bld) [#/Vol] 7.9 10*3/uL 3.6 - 10.7 10*3/uL [facility] COMPREHENSIVE METABOLIC PANE Smith 06-26-2024 Albumin [Mass/Vol] 3.0 g/dL Low 3.5-5.0 [facility] Comment on above: Performed By: #### L AB17, KBC765, [id number] #### Microbiology Manager: RUTH ANN BRAGG ([phone]) [facility] ([facility]) [address] ALP [Catalytic activity/Vol] 74 U/L Normal 38-126 [facility] Comment on above: Performed By: #### L AB17, LNM805, RQJ117 #### Microbiology Manager: RUTH ANN BRAGG ([phone]) [facility] ([facility]) [address] ALT [Catalytic activity/Vol] 21 U/L Normal 0-34 [facility] Comment on above: Performed By: #### L AB17, GJT060, NLS237 #### Microbiology Manager: RUTH ANN BRAGG ([phone]) [facility] ([facility]) [address] Anion gap [Moles/Vol] 7 mmol/L Normal 3-13 [facility] Comment on above: Performed By: #### L AB17, VWX656, GKK429 #### Microbiology Manager: RUTH ANN BRAGG ([phone]) [facility] ([facility]) [address] AST [Catalytic activity/Vol] 44 U/L Normal 15-46 [facility] Comment on above: Performed By: #### L AB17, VIV590, YPA137 #### Microbiology Manager: RUTH ANN BRAGG ([phone]) [facility] ([facility]) [address] Bilirubin [Mass/Vol] 0.8 mg/dL Normal 0.2-1.3 [facility] Comment on above: Performed By: #### L AB17, WNM309, YYS138 #### Microbiology Manager: RUTH ANN BRAGG ([phone]) [facility] ([facility]) [address] [place] [address] [place] Calcium [Mass/Vol] 9.4 mg/dL Normal 8.4-10.4 [facility] Comment on above: Performed By: #### L AB17, BOB342, DEJ902 #### Microbiology Manager: RUTH ANN BRAGG ([phone]) [facility] ([facility]) [address] Chloride [Moles/Vol] 117 mmol/L High 98-107 [facility] Comment on above: Performed By: #### L AB17, HTT902, TCJ780 #### Microbiology Manager: RUTH ANN BRAGG ([phone]) [facility] ([facility]) [address] CO2 [Moles/Vol] 18 mmol/L Low 22-30 [facility] Comment on above: Performed By: #### L AB17, ONY587, KXX359 #### Microbiology Manager: RUTH ANN BRAGG ([phone]) [facility] [address] Creatinine [Mass/Vol] 1.34 mg/dL High 0.52-1.04 [facility] Comment on above: Performed By: #### Jayy AB17, RVF209, XER992 #### Microbiology Manager: RUTH ANN BRAGG ([phone]) [facility] [address] GLOMERULAR FILTRATION RATE ML/MIN/1.73 SQ M.PREDICTED 40.7 mL/min/1.73m*2 Low >60.0 [facility] Comment on above: Result Comment: Calc ulation based on the Chronic Kidney Disease Epidemiology Collaboration (CKD-EPI) equation refit without adjustment for race Performed By: #### L AB17, ZIK198, NVS624 #### Microbiology Manager: RUTH ANN BRAGG ([phone]) [facility] ([facility]) [address] Glucose [Mass/Vol] 156 mg/dL High 70-100 [facility] Comment on above: Performed By: #### L AB17, TAK295, EOV478 #### Microbiology Manager: RUTH ANN BRAGG ([phone]) [facility] ([facility]) [address] Potassium [Moles/Vol] 3.8 mmol/L Normal 3.5-5.1 [facility] Comment on above: Performed By: #### L AB17, AHV296, KVF457 #### Microbiology Manager: RUTH ANN OBREGONWILTON ([phone]) [facility] ([facility] [address] Protein [Mass/Vol] 6.1 g/dL Low 6.3-8.2 [facility] Comment on above: Performed By: #### L AB17, DIL786, FUS921 #### Microbiology Manager: RUTH ANN OBREGONDavidSHELTON ([phone]) [facility] ([facility]) [address] Sodium [Moles/Vol] 142 mmol/L Normal 135-145 [facility] Comment on above: Performed By: #### L AB17, QBJ238, CDR367 #### Microbiology Manager: RUTH ANN OBREGONWILTON ([phone]) [facility] [address] Urea nitrogen [Mass/Vol] 42 mg/dL High 7-17 [facility] Comment on above: Performed By: #### L AB17, VNQ578, DZW806 #### Microbiology Manager: RUTH ANN BRAGG ([id number]) [facility] ([facility]) [address] Albumin [Mass/Vol] 3.2 g/dL Low 3.5-5.0 [facility] Comment on above: Performed By: #### L AB17, XVV830, ICH669 #### Microbiology Manager: RUTH ANN BRAGG ([phone]) [facility] ([facility]) [address] [place] [address] [place] ALP [Catalytic activity/Vol] 74 U/L Normal 38-126 [facility] Comment on above: Performed By: #### L AB17, NOO909, QVH217 #### Microbiology Manager: RUTH ANN BRAGG ([phone]) [facility] ([facility]) [address] [place] [address] [place] ALT [Catalytic activity/Vol] 21 U/L Normal 0-34 [facility] Comment on above: Performed By: #### L AB17, MUR252, WSK433 #### Microbiology Manager: RUTH ANN BRAGG ([phone]) [facility] ([facility]) [address] Anion gap [Moles/Vol] 7 mmol/L Normal 3-13 [facility] Comment on above: Performed By: #### L AB17, LZO936, XDT867 #### Microbiology Manager: RUTH ANN BRAGG ([phone]) [facility] ([facility]) [address] AST [Catalytic activity/Vol] 43 U/L Normal 15-46 [facility] Comment on above: Performed By: #### L AB17, NXZ873, EYM809 #### Microbiology Manager: RUTH ANN BRAGG ([phone]) [facility] ([facility]) [address] Bilirubin [Mass/Vol] 0.8 mg/dL Normal 0.2-1.3 [facility] Comment on above: Performed By: #### L AB17, GKP635, NNF340 #### Microbiology Manager: RUTH ANN BRAGG ([phone]) [facility] ([facility]) [address] Calcium [Mass/Vol] 9.4 mg/dL Normal 8.4-10.4 [facility] Comment on above: Performed By: #### L AB17, EZT738, SRV247 #### Microbiology Manager: RUTH ANN BRAGG ([phone]) [facility] ([facility]) [address] [place] [address] [place] Chloride [Moles/Vol] 116 mmol/L High 98-107 [facility] Comment on above: Performed By: #### L AB17, YYF163, VCX151 #### Microbiology Manager: RUTH ANN BRAGG ([phone]) [facility] ([facility]) [address] [place] [address] [place] CO2 [Moles/Vol] 19 mmol/L Low 22-30 [facility] Comment on above: Performed By: #### L AB17, QZT242, ZUK639 #### Microbiology Manager: RUTH ANN BRAGG ([phone]) [facility] ([facility]) [address] Creatinine [Mass/Vol] 1.39 mg/dL High 0.52-1.04 [facility] Comment on above: Performed By: #### L AB17, BFO414, BVY860 #### Microbiology Manager: RUTH ANN BRAGG ([phone]) [facility] ([facility]) [address] GLOMERULAR FILTRATION RATE ML/MIN/1.73 SQ M.PREDICTED 38.9 mL/min/1.73m*2 Low >60.0 [facility] Comment on above: Result Comment: Calc ulation based on the Chronic Kidney Disease Epidemiology Collaboration (CKD-EPI) equation refit without adjustment for race Performed By: #### L AB17, [id number], [id number] #### Microbiology Manager: RUTH ANN BRAGG ([id number]) [facility] ([facility] [address] Glucose [Mass/Vol] 155 mg/dL High 70-100 [facility] Comment on above: Performed By: #### L AB17, [id number], [id number] #### Microbiology Manager: RUTH ANN BRAGG ([id number]) [facility] ([facility]) [address] [place] [address] [place] Potassium [Moles/Vol] 3.9 mmol/L Normal 3.5-5.1 [facility] Comment on above: Performed By: #### L AB17, [id number], [id number] #### Microbiology Manager: RUTH ANN BRAGG ([id number]) [facility] ([facility]) [address] [place] [address] [place] Protein [Mass/Vol] 6.3 g/dL Normal 6.3-8.2 [facility] Comment on above: Performed By: #### L AB17, [id number], [id number] #### Microbiology Manager: RUTH ANN BRAGG ([phone]) [facility] ([facility]) [address] Sodium [Moles/Vol] 142 mmol/L Normal 135-145 [facility] Comment on above: Performed By: #### L AB17, [id number], [id number] #### Microbiology Manager: RUTH ANNMELANIE BRAGG ([phone]) [facility] ([facility]) [address] Urea nitrogen [Mass/Vol] 42 mg/dL High 7-17 [facility] Comment on above: Performed By: #### L AB17, [id number], [id number] #### Microbiology Manager: RUTH ANN BRAGG ([id number]) [facility] ([facility]) [address] ABDOMEN PELVIS WO IV CONT [facility] 06-26-2024 CT ABDOMEN PELVIS WO IV CONTRAST Patient Name: [facility]INST[facility] : 1945 [id number] Exam Date/Time: 06/26/2024 05:37 Procedure: CT ABDOMEN PELVIS WO IV CONTRAST Ordering Provider: SAAVEDRA ISH Reason For Exam: Bowel obstruction suspected CT ABDOMEN AND PELVIS WITHOUT IV CONTRAST CLINICAL INDICATION: Bowel obstruction suspected TECHNIQUE: Axial CT images through the through the abdomen and pelvis with 3 mm reconstruction without intravenous intravenous contrast media. Enteric contrast was not administered. Coronal and sagittal reconstructions included. Dose reduction was employed with automated exposure control. COMPARISON: A few prior studies including renal ultrasound 04/26/2024 FINDINGS: Examination is somewhat limited in evaluation of solid organs and vascular structures due to the lack of intravenous contrast. Additional limitations: Somewhat limited evaluation of the GI tract without enteric contrast. Motion and streak artifact Lung base: Mild cardiomegaly. Heavy atherosclerosis. Postsurgical changes from prior CABG. Multilead left-sided pacemaker device. Scattered areas of atelectasis with probable mild vascular congestion. Liver: Heterogeneous parenchyma and somewhat lobulated in contour. Gallbladder/Biliary tree: Status post cholecystectomy. No intra or extrahepatic biliary ductal dilatation Spleen: Upper limits of normal in size. Pancreas: No acute abnormality. Adrenals: No discrete mass or nodule detected. Kidneys/pelvic organs: No obstructive uropathy. Probable vascular calcification rather than nonobstructing calculus left renal pelvis. Urinary bladder appears within normal limits.. No significant abnormality in the uterus GI tract: Multiple distended loops of small bowel without pathologic dilatation. No transition point identified. Appendix not visualized. Colonic diverticula without evidence of acute diverticulitis. Peritoneal cavity/retroperitone um: No pneumatosis or pneumoperitoneum. Prominent periportal, gastrohepatic lymph nodes. Mild mesenteric edema. Vasculature: Moderate calcified plaque. Perisplenic, left perirenal, varices. Osseous structures/soft tissues: Osseous structures appear somewhat demineralized. Severe degenerative spondylosis with leftward scoliotic curvature. Fusion involving several of the lumbar intervertebral disc spaces probably degenerative. Endplate irregularity at several levels most pronounced at T12-L1 likely degenerative. Degenerative changes in the sacroiliac joints and right and left hip. Body wall edema with laxity of the ventral abdominal wall. IMPRESSION: 1. No evidence of small bowel obstruction. 2. No CT evidence of acute intra-abdominal/pelv ic abnormality. 3. Mild morphologic features of cirrhosis. 4. Perisplenic and left perirenal varices. 5. Atherosclerosis. Report Dictated on Electronically Signed By: Paul Garcia MD Electronically Signed Date/Time: 06/26/2024 8:04 AM EST Normal [facility] CT Abdomen and Pelvis WO con traston 06-26-2024 [facility] Radiology Study observation (narrative) [facility] CT Abdomen and Pelvis WO con trastOrdered By: Lynda Garcia on 06-26-2024 [facility] Work Phone: CT HEAD WO IV CONTRASTon CT HEAD WO IV CONTRAST Patient Name: MIKEL WINSTON : 1945 [id number] Exam Date/Time: 06/26/2024 05:20 Procedure: CT HEAD WO IV CONTRAST Ordering Provider: SAAVEDRA ISH Reason For Exam: Mental status change, unknown cause CT HEAD: CLINICAL INDICATION: Mental status change, unknown cause TECHNIQUE: Transaxial CT sequence performed through the head with 3 mm reconstruction. Sagittal and Coronal reconstruction images included. Dose reduction was employed with automated exposure control. COMPARISON: CT head 06/25/2024 FINDINGS: Cerebral and cerebellar parenchyma: Mild diffuse cortical volume loss. Chronic small vessel ischemic changes in the bilateral periventricular white matter. No acute intraparenchymal hemorrhage. No midline shift.. Ventricles and Extra-axial spaces: Normal in size and morphology for the patient's age. No abnormal extracerebral collection identified. Visualized Paranasal sinuses: Normal. Mastoid air cells: Normal. Visualized Orbits: Normal Calvarium and skull base: Normal IMPRESSION: No acute intracranial abnormality. Mild diffuse cortical volume loss and chronic small vessel ischemic changes. Report Dictated on Electronically Signed By: Tracey Fernando MD Electronically Signed Date/Time: 06/26/2024 6:30 AM EST Mental status change Normal [facility] CT Head WO contraston 2023 [facility] RADIOLOGY [facility] RADIOLOGY [facility] Radiology Study observation (narrative) [facility] CT Head WO contrastOrdered B y: Tracey Fernando on 06-26-2024 [facility] Work Phone: Comprehensive metabolic 1998 panelon 06-26-2024 Albumin [Mass/Vol] 3 g/dL Low 3.5 - 5.0 g/dL [facility] ALP [Catalytic activity/Vol] 74 U/L 38 - 126 U/L [facility] ALT [Catalytic activity/Vol] 21 U/L 0 - 34 U/L [facility] Anion gap [Moles/Vol] 7 mmol/L 3 - 13 mmol/L [facility] AST [Catalytic activity/Vol] 44 U/L 15 - 46 U/L [facility] Bilirubin [Mass/Vol] 0.8 mg/dL 0.2 - 1 .3 mg/dL [facility] Calcium [Mass/Vol] 9.4 mg/dL 8.4 - 10. 4 mg/dL [facility] Chloride [Moles/Vol] 117 mmol/L High 98 - 10 7 mmol/L [facility] CO2 [Moles/Vol] 18 mmol/L Low 22 - 30 mmol/L [facility] Creatinine [Mass/Vol] 1.34 mg/dL High 0.52 - 1.04 mg/dL [facility] GFR/1.73 sq M.predicted (S/P/Bld) [Vol rate/Area] 40.7 mL/min Low - PINF [facility] Glucose [Mass/Vol] 156 mg/dL High 70 - 100 mg/dL [facility] Interpretation and review of laboratory results Abnormal [facility] Potassium [Moles/Vol] 3.8 mmol/L 3.5 - 5.1 mmol/L [facility] Protein [Mass/Vol] 6.1 g/dL Low 6.3 - 8.2 g/dL [facility] Sodium [Moles/Vol] 142 mmol/L 135 - 145 mmol/L [facility] Urea nitrogen [Mass/Vol] 42 mg/dL High 7 - 17 mg/dL [facility] Albumin [Mass/Vol] 3.2 g/dL Low 3.5 - 5.0 g/dL [facility] ALP [Catalytic activity/Vol] 74 U/L 38 - 126 U/L [facility] ALT [Catalytic activity/Vol] 21 U/L 0 - 34 U/L [facility] Anion gap [Moles/Vol] 7 mmol/L 3 - 13 mmol/L [facility] AST [Catalytic activity/Vol] 43 U/L 15 - 46 U/L [facility] Bilirubin [Mass/Vol] 0.8 mg/dL 0.2 - 1 .3 mg/dL [facility] Calcium [Mass/Vol] 9.4 mg/dL 8.4 - 10. 4 mg/dL [facility] Chloride [Moles/Vol] 116 mmol/L High 98 - 10 7 mmol/L [facility] CO2 [Moles/Vol] 19 mmol/L Low 22 - 30 mmol/L [facility] Creatinine [Mass/Vol] 1.39 mg/dL High 0.52 - 1.04 mg/dL [facility] GFR/1.73 sq M.predicted (S/P/Bld) [Vol rate/Area] 38.9 mL/min Low - PINF [facility] Glucose [Mass/Vol] 155 mg/dL High 70 - 100 mg/dL [facility] Interpretation and review of laboratory results Abnormal [facility] Potassium [Moles/Vol] 3.9 mmol/L 3.5 - 5.1 mmol/L [facility] Protein [Mass/Vol] 6.3 g/dL 6.3 - 8.2 g/dL [facility] Sodium [Moles/Vol] 142 mmol/L 135 - 145 mmol/L [facility] Urea nitrogen [Mass/Vol] 42 mg/dL High 7 - 17 mg/dL [facility] Consulton 06-26-2024 Consult Internal Medicine: MICU Initial Consult Name: Mikel [...] 05/31/2024 Performed by Pravin Poole MD at [facility] Cardiac Cath/EP Lab CHOLECYSTECTOMY CORONARY ARTERY [...] 10 min Stress: Stress Concern Present (01/28/2024) [employer] [place] [employer] - Occupational Stress Questionnaire Feeling of Stress : To some extent Social Connections: Moderately Integrated (01/28/2024) Social Connection and Isolation Panel [NHANES] Frequency of Communication with Friends and Family: More than three times a week Frequency of Social Gatherings with Friends and Family: More than three times a week Attends [employer] [facility]: More than 4 times per year [...] Take 5,000 Units by mouth daily. Historical ProviderMD cholecalciferol (Vitamin D3) 200 Unit tablet split [...] Take 1 tablet (25 mg) by mouth isiah (more content not included)... Normal [facility] HEMOGLOBIN AND HEMATOCRIT, B eTrrence 06-26-2024 Hematocrit (Bld) [Volume fraction] 24.6 % Low 35.0-47.0 [facility] Comment on above: Performed By: #### L AB17, [id number], [id number] #### Microbiology Manager: RUTH ANN BRAGG ([id number]) [facility] ([facility]) [address] [place] [address] Hemoglobin (Bld) [Mass/Vol] 7.9 g/dL Low 11.7-16.0 [facility] Comment on above: Performed By: #### L AB17, [id number], [id number] #### Microbiology Manager: RUTH ANN BRAGG ([phone]) [facility] ([facility]) [address] [place] [address] Hematocrit (Bld) [Volume fraction] 25.7 % Low 35.0-47.0 [facility] Comment on above: Performed By: #### L AB17, [id number], [id number] #### Microbiology Manager: RUTH ANN BRAGG ([phone]) [facility] ([facility]) [address] [place] [address] Hemoglobin (Bld) [Mass/Vol] 8.1 g/dL Low 11.7-16.0 [facility] Comment on above: Performed By: #### L AB17, [id number], [id number] #### Microbiology Manager: RUTH ANN BRAGG ([phone]) [facility] ([facility]) [address] Hematocrit (Bld) [Volume fraction] 27.2 % Low 35.0-47.0 [facility] Comment on above: Performed By: #### L AB17, [id number], [id number] #### Microbiology Manager: RUTH ANN BRAGG ([id number]) [facility] ([facility]) [address] Hemoglobin (Bld) [Mass/Vol] 8.5 g/dL Low 11.7-16.0 [facility] Comment on above: Performed By: #### L AB17, [id number], [id number] #### Microbiology Manager: RUTH ANN BRAGG ([phone]) [facility] ([facility]) [address] Hemoglobin (Bld) [Mass/Vol]o n 06-26-2024 Hematocrit (Bld) [Volume fraction] 24.6 % Low 35.0 - 47.0 % [facility] Interpretation and review of laboratory results Abnormal [facility] Hematocrit (Bld) [Volume fraction] 25.7 % Low 35.0 - 47.0 % [facility] Interpretation and review of laboratory results Abnormal [facility] Hematocrit (Bld) [Volume fraction] 27.2 % Low 35.0 - 47.0 % [facility] Interpretation and review of laboratory results Abnormal [facility] Laboratory - Chemistry and C hemistry - challengeon 06-26-2024 Glucose [Mass/Vol] 191 mg/dL High 70 - 100 mg/dL [facility] Glucose [Mass/Vol] 189 mg/dL High 70 - 100 mg/dL [facility] Ammonia (P) [Moles/Vol] 134 umol/L High 9 - 30 umol/L [facility] Glucose [Mass/Vol] 169 mg/dL High 70 - 100 mg/dL [facility] Troponin I.cardiac [Mass/Vol] 0.042 ng/mL High NINF - 0.034 ng/mL [facility] Laboratory - Chemistry and C hemistry - challengeOrdered By: Sara Cano on 06-26-2024 Base excess Calc (Bld) [Moles/Vol] -2.4000 mmol/L -3.0 - 3.0 mmol/L [facility] CO2 (Bld) [Partial pressure] 29.1 mm[Hg] Low [facility] CO2 [Moles/Vol] 21.5 mmol/L Low 22.0 - 28.0 mmol/L [facility] HCO3 (Bld) [Moles/Vol] 20.7 mmol/L Low 21.0 - 27.0 mmol/L [facility] Oxygen (Bld) [Partial pressure] 97 mm[Hg] [facility] pH (Bld) 7.469 [pH] High 7.350 - 7.450 [facility] Laboratory - Hematology and Cell countson 06-26-2024 Hemoglobin (Bld) [Mass/Vol] 7.9 g/dL Low 11.7 - 16.0 g/dL [facility] Hemoglobin (Bld) [Mass/Vol] 8.1 g/dL Low 11.7 - 16.0 g/dL [facility] Hemoglobin (Bld) [Mass/Vol] 8.5 g/dL Low 11.7 - 16.0 g/dL [facility] Laboratory - Hematology and Cell countsOrdered By: Sara Cano on 06-26-2024 Hemoglobin (Bld) [Mass/Vol] 8.6 g/dL Low Screen only [facility] Lower GI hemoglobin spec 1 I A Ql (Stl)Ordered By: Ovidio Carson on 06-26-2024 Fecal occult blood Positive Abnormal Negative [facility] Interpretation and review of laboratory results Abnormal [facility] No Panel Informationon 06-26 Blood Expiration Date S [facility] Crossmatch interpretation COMP [facility] Dispense Status Transfused [facility] Product Blood Type 5100 [facility] PRODUCT CODE [id number] [facility] ABO [facility] Number [id number] [facility] alth Unit RH Positive [facility] Volume 300 mL [facility] Interpretation and review of laboratory results Abnormal [facility] Interpretation and review of laboratory results Abnormal [facility] Interpretation and review of laboratory results Abnormal [facility] Interpretation and review of laboratory results Abnormal [facility] No Panel InformationOrdered By: Sara Cano on 06-26-2024 Interpretation and review of laboratory results Abnormal [facility] Source Of Oxygen Room Air [facility] Progress Noteon 06-26-2024 Progress Note Nutrition Assessment Type and Reason for Visit: Initial (ICU admit) Nutrition Recommendations/Plan : NPO with AMS in ICU, NG in [...] assess Fluid Accumulation: Moderate to Severe Extremities Denture Packer Strength: Not Performed Nutrition Assessment: 78 year old woman with PMHx: CAD (s/p CABG 2018), PCI (s/p stenting in 2018 d/t moderate aortic stenosis), DMII(A1C=6.1% 01/28/24), CKD stage III, liver cirrhosis, osteoporosis, HTN. Most recently admitted to [facility] 05/29-06/01/24 with bilateral leg swelling, initially presented to [facility] ED then transferred to [facility] for PPM placement. Underwent s/p Medtr[employer] PPM implant on 05/31/25, post op device check was normal and discharged home in improved condition. She currently presents to [facility] with AMS. LKW ~1100 on 06/25 while speaking to daughter over the phone, called dropped. Granddaughter later found patient ~1500 on 06/25 slumped in here chair and confused at home. Significant labs on admit: Hgb(9.0), Hct(27.7), BUN(37), Creatinine(1.40), INR(1.2), troponin(0.040). +Urine for EColi. +FBOT. 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 +Bloody stool noted, with coffee ground emesis. PROBATION OFFICER called and transferred to ICU this morning. NG Placed at 0945. RN with patient at time of attempted assessment. Deferred NFPE until follow-up. Discussed with MD via secureChat, agreeable to begin trophic EN once NG placement confirmed. Estimated Daily Nutrient Needs: Energy Requirements Based On: Kcal/kg Weight Used for Energy Requirements: [place] Weight for Energy Calculation (kg): 55 kg Total Energy Requirements (kcals/day): 2521-3404 (25-30 kcal/kg IBW) Weight Used for Protein Requirements: [place] Weight in Kg Used for Protein Requirements: [...] 190# 06/11/24) % Weight Change (Calculated): -3.1 [place] Body Weight (lbs) (Calculated): 120 lbs [place] Body Weight (Kg) (Calculated): 55 kg % [place] Body Weight (Calculated): 158.3 % BMI (kg/m2) [...] evidenced by lab values Nutrition Interventions: Nutrition Education/Counseling : Education not indicated Coordination of Nutrition Care: Continue to monitor while inpatient Plan of Care discussed with: RN, and MD via secure chat Goals: Goals: Initiate PO diet, Tolerate nutrition support at goal rate, by next RD assessment Nutrition Monitoring and Evaluation: Behavioral-Environme ntal Outcomes: None Identified Food/Nutrient Intake Outcomes: Diet Advancement/Toleranc e, Enteral Nutrition Intake/Tolerance Physical Signs/Symptoms Outcomes: Biochemical Data, GI Status, Weight, Skin, Nutrition Focused Physical Findings, Fluid Status or Edema, Hemodynamic Status Discharge Planning: Too soon to determine Crissy Denis, RDN, LDN, Contact: *[phone] [facility] Progress Note PHYSICAL THERAPY [facility] Name/MRN: Mikel Winston ([id number]) Date: 06/26/2024 Therapy eval and treat orders received. Chart review complete. Pt in with AMS and initially able to respond to verbal cues. PROBATION OFFICER called this a.m. with pt experiencing multiple episodes of bloody stool, emesis, and reduced mental status only responding to painful stimuli. Spoke with RN regarding pt status. Pt currently being transferred to ICU. Pt not appropriate for therapy at this time. Will complete current orders d/t change in status this date. Please reorder therapy services when pt appropriate to participate. Philly Kam, PT [facility] Progress Note OCCUPATIONAL THERAPY [facility] Name/MRN: Mikel Winston ([id number]) Date: 06/26/2024 Therapy eval and treat orders received. Chart review complete. Pt in with AMS and initially able to respond to verbal cues. PROBATION OFFICER called this a.m. with pt experiencing multiple episodes of bloody stool, emesis, and reduced mental status only responding to painful stimuli. Spoke with RN regarding pt status. Pt currently being transferred to ICU. Pt not appropriate for therapy at this time. Will discontinue orders d/t change in status this date. Please reorder therapy services when pt appropriate to participate. Quinn Alcala, OT [facility] Progress Note Rapid response was called as patient neurological [...] further plan of care will be decided Normal [facility] Troponin I.cardiac [Mass/Vol ]on 06-26-2024 Interpretation and review of laboratory results Abnormal [facility] XR ABDOMEN 1 VIEWon 06-26-20 24 XR ABDOMEN 1 VIEW Patient Name: MIKEL WINSTON : 1945 Exam Date/Time: 06/26/2024 10:04 Procedure: XR ABDOMEN 1 VIEW Ordering Provider: STRINGER MASROOR Reason For Exam: ng placement and the ng is in ABDOMEN: CLINICAL INDICATION: ng placement and the ng is in TECHNIQUE: Supine abdomen and pelvis COMPARISON: Correlations made to CT abdomen pelvis earlier the same day IMPRESSION: FINDINGS/IMPRESSION: Limitations: Slightly limited by positioning and [id number] Lines, tubes, and devices: NG tube with its tip located in the proximal gastric body. Multilead left-sided pacemaker device partially imaged. Bowel gas: No dilated loops of bowel. Soft tissues: Vascular calcifications. Osseous structures: Degenerative spondylosis in the visualized spine with scoliotic curvature. Report Dictated on Electronically Signed By: Paul Garcia MD Electronically Signed Date/Time: 06/26/2024 12:28 PM EST Normal [facility] XR Abdomen Single viewon [facility] Radiology Study observation (narrative) [facility] XR CHEST 1 VIEWon 06-26-2024 XR CHEST 1 VIEW Patient Name: MIKEL WINSTON : 1945 Exam Date/Time: 06/26/2024 10:03 Procedure: XR CHEST 1 VIEW Ordering Provider: STRINGER MASROOR Reason For Exam: ? aspiration CHEST - PORTABLE: CLINICAL INDICATION: ? aspiration TECHNIQUE: Portable AP COMPARISON: One day ago. IMPRESSION: FINDINGS/IMPRESSION: Limitations: Patient positioning/rotation Lines, tubes, and [...] Electronically Signed Date/Time: 06/26/2024 2:17 PM EST Normal [facility] XR Chest Single viewon 06-[address] [facility] Radiology Study observation (narrative) [facility] alth CBC W Auto Differential pane l (Bld)on 06-25-2024 Basophils (Bld) [#/Vol] 0.1 10*3/uL 0.0 - 0.2 10*3/uL [facility] Basophils/100 WBC (Bld) 0.9 % 0.0 - 2.0 % [facility] Eosinophils (Bld) [#/Vol] 0.1 10*3/uL 0. 0 - 0.5 10*3/uL [facility] Eosinophils/100 WBC (Bld) 2 % 0.0 - 6.0 % [facility] Erythrocyte distribution width (RBC) [Ratio] 14.6 % 11.5 - 15.0 % [facility] Hematocrit (Bld) [Volume fraction] 27.7 % Low 35.0 - 47.0 % [facility] Hemoglobin (Bld) [Mass/Vol] 9 g/dL Low 11.7 - 16.0 g/dL [facility] Immature granulocytes (Bld) [#/Vol] 0 10*3/uL NINF - 0.1 10*3/uL [facility] Immature granulocytes/100 WBC (Bld) 0.2 % 0.0 - 2.0 % [facility] Interpretation and review of laboratory results Abnormal [facility] th Lymphocytes (Bld) [#/Vol] 0.9 10*3/uL Low 1. 0 - 4.3 10*3/uL [facility] Lymphocytes/100 WBC (Bld) 15.8 % 15 .0 - 45.0 % [facility] MCH (RBC) [Entitic mass] 31.1 pg 26. 0 - 34.0 pg [facility] MCHC (RBC) [Mass/Vol] 32.5 % 30.5 - 36.0 % [facility] MCV (RBC) [Entitic vol] 95.8 fL 77.0 - 99.0 fL [facility] Monocytes (Bld) [#/Vol] 0.9 10*3/uL 0.0 - 0.9 10*3/uL [facility] Monocytes/100 WBC (Bld) 15.4 % High 5.0 - 13.0 % [facility] Neutrophils (Bld) [#/Vol] 3.6 10*3/uL 1. 8 - 7.5 10*3/uL [facility] Neutrophils/100 WBC (Bld) 65.7 % 38 .0 - 82.0 % [facility] Nucleated RBC/100 WBC (Bld) [Ratio] 0 % [facility] Platelet mean volume (Bld) [Entitic vol] 11.2 fL 9.0 - 12.7 fL [facility] Platelets (Bld) [#/Vol] 119 10*3/uL Low 140 - 440 10*3/uL [facility] RBC (Bld) [#/Vol] 2.89 10*6/uL Low 3.80 - 5.2 0 10*6/uL [facility] WBC (Bld) [#/Vol] 5.5 10*3/uL 3.6 - 10.7 10*3/uL [facility] CBC WITH AUTO DIFFERENTIALon 06-25-2024 Basophils (Bld) [#/Vol] 0.1 10*3/uL Normal 0.0-0.2 [facility] Comment on above: Performed By: #### L AB17, [id number], [id number] #### Microbiology Manager: RUTH ANN BRAGG ([id number]) [facility] [place] [facility] [address] Basophils/100 WBC (Bld) 0.9 % Normal 0.0-2.0 [facility] Comment on above: Performed By: #### L AB17, [id number], [id number] #### Microbiology Manager: RUTH ANN BRAGG ([id number]) [facility] [place] [address] Eosinophils (Bld) [#/Vol] 0.1 10*3/uL Normal 0.0-0.5 [facility] Comment on above: Performed By: #### L AB17, [id number], [id number] #### Microbiology Manager: RUTH ANN BRAGG ([phone]) [facility] [address] Eosinophils/100 WBC (Bld) 2.0 % Normal 0.0-6.0 [facility] Comment on above: Performed By: #### L AB17, [id number], [id number] #### Microbiology Manager: RUTH ANN BRAGG ([id number]) [facility] ([facility]) [address] Erythrocyte distribution width (RBC) [Ratio] 14.6 % Normal 11.5-15.0 [facility] Comment on above: Performed By: #### L AB17, [id number], [id number] #### Microbiology Manager: RUTH ANN BRAGG ([id number]) [facility] [place] [facility] [address] Hematocrit (Bld) [Volume fraction] 27.7 % Low 35.0-47.0 [facility] Comment on above: Performed By: #### L AB17, [id number], [id number] #### Microbiology Manager: RUTH ANN BRAGG ([id number]) [facility] [address] Hemoglobin (Bld) [Mass/Vol] 9.0 g/dL Low 11.7-16.0 [facility] Comment on above: Performed By: #### L AB17, [id number], [id number] #### Microbiology Manager: RUTH ANN BRAGG ([phone]) [facility] ([facility]) [address] IMMATURE GRANS % 0.2 % Normal 0.0-2.0 [facility] Comment on above: Performed By: #### L AB17, [id number], [id number] #### Microbiology Manager: RUTH ANN BRAGG ([phone]) [facility] [address] IMMATURE GRANS ABSOLUTE 0.0 10*3/uL Normal <0.1 [facility] Comment on above: Performed By: #### L AB17, [id number], [id number] #### Microbiology Manager: RUTH ANN BRAGG ([phone]) [facility] ([facility]) [address] Lymphocytes (Bld) [#/Vol] 0.9 10*3/uL Low 1.0-4.3 [facility] Comment on above: Performed By: #### L AB17, [id number], [id number] #### Microbiology Manager: RUTH ANN BRAGG ([phone]) [facility] [address] Lymphocytes/100 WBC (Bld) 15.8 % Normal 15.0-45.0 [facility] Comment on above: Performed By: #### L AB17, [id number], NPQ316 #### Microbiology Manager: RUTH ANN BRAGG ([phone]) [facility] ([facility]) [address] MCH (RBC) [Entitic mass] 31.1 pg Normal 26.0-34.0 [facility] Comment on above: Performed By: #### L AB17, XSF063, MEE087 #### Microbiology Manager: RUTH ANN BRAGG ([phone]) [facility] ([facility]) [address] MCHC 32.5 % Normal 30.5-36.0 [facility] Comment on above: Performed By: #### L AB17, VSI813, KIH286 #### Microbiology Manager: RUTH ANN BRAGG ([phone]) [facility] ([facility]) [address] MCV (RBC) [Entitic vol] 95.8 fL Normal 77.0-99.0 [facility] Comment on above: Performed By: #### L AB17, QSH491, EDV333 #### Microbiology Manager: RUTH ANN BRAGG ([phone]) [facility] ([facility]) [address] Monocytes (Bld) [#/Vol] 0.9 10*3/uL Normal 0.0-0.9 [facility] Comment on above: Performed By: #### L AB17, OHS506, JZM903 #### Microbiology Manager: RUTH ANN BRAGG ([phone]) [facility] [address] Monocytes/100 WBC (Bld) 15.4 % High 5.0-13.0 [facility] Comment on above: Performed By: #### L AB17, [id number], GTG811 #### Microbiology Manager: RUTH ANN BRAGG ([phone]) [facility] ([facility]) [address] NEUTROPHILS ABSOLUTE 3.6 10*3/uL Normal 1.8-7.5 [facility] Comment on above: Performed By: #### L AB17, [id number], BDX129 #### Microbiology Manager: RUTH ANN BRAGG ([phone]) [facility] ([facility]) [address] Neutrophils/100 WBC (Bld) 65.7 % Normal 38.0-82.0 [facility] Comment on above: Performed By: #### L AB17, OUP844, IKK743 #### Microbiology Manager: RUTH ANN BRAGG ([phone]) [facility] ([facility]) [address] NRBC 0.0 /100 WBCs Normal 0.0-2.0 [facility] Comment on above: Performed By: #### L AB17, RUE429, IFI460 #### Microbiology Manager: RUTH ANN BRAGG ([phone]) [facility] ([facility]) [address] Platelet mean volume (Bld) [Entitic vol] 11.2 fL Normal 9.0-12.7 [facility] Comment on above: Performed By: #### L AB17, [id number], SZW097 #### Microbiology Manager: RUTH ANN BRAGG ([phone]) [facility] ([facility]) [address] Platelets (Bld) [#/Vol] 119 10*3/uL Low 140-440 [facility] Comment on above: Performed By: #### L AB17, IQS971, [id number] #### Microbiology Manager: RUTH ANN BRAGG ([phone]) [facility] ([facility]) [address] RBC (Bld) [#/Vol] 2.89 10*6/uL Low 3.80-5.20 [facility] Comment on above: Performed By: #### L AB17, JKC642, LAB917 #### Microbiology Manager: RUTH ANN BRAGG ([phone]) [facility] ([facility]) [address] WBC (Bld) [#/Vol] 5.5 10*3/uL Normal 3.6-10.7 [facility] Comment on above: Performed By: #### L AB17, PGU373, [id number] #### Microbiology Manager: RUTH ANN BRAGG ([phone]) [facility] ([facility]) [address] COMPLETE URINALYSISon 2023 BACTERIA (#/HPF) IN URINE Moderate Abnormal Negative [facility] Comment on above: Performed By: #### L [id number] #### Microbiology Manager: RUTH ANN BRAGG ([phone]) [facility] ([facility]) [address] BILIRUBIN, TOTAL PRESENCE IN URINE Negative Normal Negative [facility] Comment on above: Performed By: #### L [id number] #### Microbiology Manager: RUTH ANN BRAGG ([phone]) [facility] ([facility]) [address] [place] [address] [place] Clarity (U) Clear Normal Clear [facility] Comment on above: Performed By: #### L [id number] #### Microbiology Manager: RUTH ANN BRAGG ([id number]) [facility] ([facility]) [address] [place] [address] [place] Color (U) Light Yellow Normal Lt. Yellow [facility] Comment on above: Performed By: #### L [id number] #### Microbiology Manager: RUTH ANN BRAGG ([phone]) [facility] ([facility]) [address] [place] [address] [place] GLUCOSE (MG/DL) IN URINE Normal Normal Nor mal (<70) [facility] Comment on above: Performed By: #### L [id number] #### Microbiology Manager: RUTH ANN BRAGG ([phone]) [facility] ([facility]) [address] [place] [address] [place] HEMOGLOBIN PRESENCE IN URINE Negative Normal Negative [facility] Comment on above: Performed By: #### L [id number] #### Microbiology Manager: RUTH ANN BRAGG ([phone]) [facility] ([facility]) [address] [place] [address] [place] Ketones Ql (U) Negative Normal Negative [facility] Comment on above: Performed By: #### L [id number] #### Microbiology Manager: RUTH ANN BRAGG ([phone]) [facility] ([facility]) [address] [place] [address] [place] LEUKOCYTE ESTERASE PRESENCE IN URINE BY TEST STRIP 75 Yomi/uL Abnormal Negative [facility] Comment on above: Performed By: #### L [id number] #### Microbiology Manager: RUTH ANN BRAGG ([phone]) [facility] [address] [place] [address] [place] MUCUS (#/LPF) IN URINE SEDIMENT Few Normal Negative [facility] Comment on above: Performed By: #### L [id number] #### Microbiology Manager: RUTH ANN BRAGG ([phone]) [facility] [address] NITRITE PRESENCE IN URINE Negative Normal Negative [facility] Comment on above: Performed By: #### L [id number] #### Microbiology Manager: RUTH ANN BRAGG ([phone]) [facility] ([facility]) [address] pH (U) 5.0 [pH] Normal 5.0-8.0 [facility] Comment on above: Performed By: #### L [id number] #### Microbiology Manager: RUTH ANN BRAGG ([phone]) [facility] ([facility]) [address] Protein (U) [Mass/Vol] 30 mg/dL Abnormal Negative [facility] Comment on above: Performed By: #### L [id number] #### Microbiology Manager: RUTH ANN BRAGG ([phone]) [facility] [address] [place] [address] [place] RBC (#/HPF) IN URINE SEDIMENT 3-5 Abnormal 0-2 [facility] Comment on above: Performed By: #### L [id number] #### Microbiology Manager: RUTH ANN BRAGG ([phone]) [facility] [address] Specific gravity (U) [Rel density] 1.018 Normal 1.005-1.030 [facility] Comment on above: Performed By: #### L [id number] #### Microbiology Manager: RUTH ANN BRAGG ([phone]) [facility] [place] ([facility]) [address] [place] [address] [place] SQUAMOUS EPITHELIAL CELLS (#/HPF) IN URINE SEDIMENT 0-2 Normal 3-5 [facility] Comment on above: Performed By: #### L [id number] #### Microbiology Manager: RUTH ANN BRAGG ([phone]) [facility] ([facility]) [address] UROBILINOGEN (MG/DL) IN URINE Normal Normal Normal (0-1) [facility] Comment on above: Performed By: #### L [id number] #### Microbiology Manager: RUTH ANN BRAGG ([phone]) [facility] ([facility]) [address] WBC (LEUKOCYTE) (#/HPF) IN URINE SEDIMENT 11-25 Abnormal 0-5 [facility] Comment on above: Performed By: #### L [id number] #### Microbiology Manager: RUTH ANN BRAGG ([phone]) [facility] ([facility]) [address] [place] [address] [place] WBC (LEUKOCYTE) CLUMPS (#/HPF) IN URINE SEDIMENT Rare Abnormal Negative [facility] Comment on above: Performed By: #### L [id number] #### Microbiology Manager: RUTH ANN BRAGG ([phone]) [facility] ([facility]) [address] [place] [address] [place] YEAST (#/HPF) IN URINE Few Abnormal Negative [facility] Comment on above: Performed By: #### L [id number] #### Microbiology Manager: RUTH ANN BRAGG ([phone]) [facility] ([facility] [address] [place] [address] [place] COMPREHENSIVE METABOLIC PANE Smith 06-25-2024 Albumin [Mass/Vol] 3.4 g/dL Low 3.5-5.0 [facility] Comment on above: Performed By: #### L AB17, [id number], FAF447 #### Microbiology Manager: RUTH ANN BRAGG ([phone]) [facility] ([facility]) [address] [place] [address] [place] ALP [Catalytic activity/Vol] 89 U/L Normal 38-126 [facility] Comment on above: Performed By: #### L AB17, MTO441, JIW911 #### Microbiology Manager: RUTH ANN BRAGG ([phone]) [facility] ([facility]) [address] [place] [address] [place] ALT [Catalytic activity/Vol] 21 U/L Normal 0-34 [facility] Comment on above: Performed By: #### L AB17, [id number], ZIN635 #### Microbiology Manager: RUTH ANN BRAGG ([phone]) [facility] ([facility]) [address] Anion gap [Moles/Vol] 7 mmol/L Normal 3-13 [facility] Comment on above: Performed By: #### L AB17, CAX003, GDT680 #### Microbiology Manager: RUTH ANN BRAGG ([phone]) [facility] ([facility]) [address] [place] [address] [place] AST [Catalytic activity/Vol] 45 U/L Normal 15-46 [facility] Comment on above: Performed By: #### L AB17, [id number], [id number] #### Microbiology Manager: RUTH ANN BRAGG ([phone]) [facility] ([facility]) [address] [place] [address] [place] Bilirubin [Mass/Vol] 0.9 mg/dL Normal 0.2-1.3 [facility] Comment on above: Performed By: #### L AB17, [id number], VDI544 #### Microbiology Manager: RUTH ANN BRAGG ([phone]) [facility] ([facility]) [address] [place] [address] [place] Calcium [Mass/Vol] 9.7 mg/dL Normal 8.4-10.4 [facility] Comment on above: Performed By: #### L AB17, BPV295, QRQ796 #### Microbiology Manager: RUTH ANN BRAGG ([phone]) [facility] ([facility]) [address] [place] [address] [place] Chloride [Moles/Vol] 114 mmol/L High 98-107 [facility] Comment on above: Performed By: #### L AB17, [id number], TLL919 #### Microbiology Manager: RUTH ANN BRAGG ([phone]) [facility] ([facility]) [address] [place] [address] [place] CO2 [Moles/Vol] 21 mmol/L Low 22-30 [facility] Comment on above: Performed By: #### L AB17, [id number], WBE400 #### Microbiology Manager: RUTH ANN BRAGG ([phone]) [facility] ([facility]) [address] Creatinine [Mass/Vol] 1.40 mg/dL High 0.52-1.04 [facility] Comment on above: Performed By: #### L AB17, VMF739, HIP173 #### Microbiology Manager: RUTH ANN BRAGG ([phone]) [facility] ([facility]) [address] GLOMERULAR FILTRATION RATE ML/MIN/1.73 SQ M.PREDICTED 38.6 mL/min/1.73m*2 Low >60.0 [facility] Comment on above: Result Comment: Calc ulation based on the Chronic Kidney Disease Epidemiology Collaboration (CKD-EPI) equation refit without adjustment for race Performed By: #### L AB17, OGI598, JQD640 #### Microbiology Manager: RUTH ANN BRAGG ([id number]) [facility] ([facility]) [address] [place] [address] [place] Glucose [Mass/Vol] 147 mg/dL High 70-100 [facility] Comment on above: Performed By: #### L AB17, RGN818, SLV651 #### Microbiology Manager: RUTH ANN BRAGG ([id number]) [facility] ([facility]) [address] [place] [address] [place] Potassium [Moles/Vol] 3.6 mmol/L Normal 3.5-5.1 [facility] Comment on above: Performed By: #### L AB17, MFX016, BWP477 #### Microbiology Manager: RUTH ANN BRAGG ([id number]) [facility] ([facility]) [address] Protein [Mass/Vol] 6.7 g/dL Normal 6.3-8.2 [facility] Comment on above: Performed By: #### L AB17, NWQ159, IEB390 #### Microbiology Manager: RUTH ANN BRAGG ([phone]) [facility] ([facility]) [address] Sodium [Moles/Vol] 141 mmol/L Normal 135-145 [facility] Comment on above: Performed By: #### L AB17, VDU701, HDQ399 #### Microbiology Manager: RUTH ANN BRAGG ([phone]) [facility] ([facility]) [address] Urea nitrogen [Mass/Vol] 37 mg/dL High 7-17 [facility] Comment on above: Performed By: #### L AB17, WOF616, YRF766 #### Microbiology Manager: RUTH ANN BRAGG ([phone]) [facility] [address] [place] [address] COVID-19, Flu A/B, and RSV C omboon 06-25-2024 Interpretation and review of laboratory results Normal [facility] CT HEAD WO IV CONTRASTon CT HEAD WO IV CONTRAST Patient Name: MIKEL WINSTON : 1945 Exam Date/Time: 06/25/2024 17:41 Procedure: CT HEAD WO IV CONTRAST Ordering Provider: MELVIN SHAYA Reason For Exam: Neuro deficit, acute, stroke suspected CT HEAD: Clinical Indication: 78-year-old female; altered mental status and weakness and confusion and tired Imaging Technique: Multiple axial 3mm CT images of the head were obtained from the skull base to the vertex. Coronal and sagittal reconstructs were rendered. Dose reduction was employed with automated exposure control. Comparison: 01/28/2024 FINDINGS: There is global volume loss with moderate distal vessel ischemia. The calvarium is intact. The bone mineralization is decreased. The globes are symmetric with lens replacement. The paranasal sinuses are pneumatized. The mastoid air cells are pneumatized. Empty sella noted. Atherosclerotic calcifications are present. IMPRESSION: No acute intracranial process. Global volume loss with small vessel ischemia. Report Dictated on Electronically Signed By: Sue Hernandez MD Electronically Signed Date/Time: 06/25/2024 5:56 PM EST Complaint of altered mental status and weakness that started several days ago. Patient is confused at this time and very tired Normal [facility] CT Head WO contraston 2023 [facility] Radiology Study observation (narrative) [facility] CT Head WO contrastOrdered B y: Sue Hernandez on 06-25-2024 [facility] Work Phone: Comprehensive metabolic 1998 panelon 06-25-2024 Albumin [Mass/Vol] 3.4 g/dL Low 3.5 - 5.0 g/dL [facility] ALP [Catalytic activity/Vol] 89 U/L 38 - 126 U/L [facility] ALT [Catalytic activity/Vol] 21 U/L 0 - 34 U/L [facility] Anion gap [Moles/Vol] 7 mmol/L 3 - 13 mmol/L [facility] AST [Catalytic activity/Vol] 45 U/L 15 - 46 U/L [facility] Bilirubin [Mass/Vol] 0.9 mg/dL 0.2 - 1 .3 mg/dL [facility] Calcium [Mass/Vol] 9.7 mg/dL 8.4 - 10. 4 mg/dL [facility] Chloride [Moles/Vol] 114 mmol/L High 98 - 10 7 mmol/L [facility] CO2 [Moles/Vol] 21 mmol/L Low 22 - 30 mmol/L [facility] Creatinine [Mass/Vol] 1.4 mg/dL High 0.52 - 1.04 mg/dL [facility] GFR/1.73 sq M.predicted (S/P/Bld) [Vol rate/Area] 38.6 mL/min Low - PINF [facility] Glucose [Mass/Vol] 147 mg/dL High 70 - 100 mg/dL [facility] Interpretation and review of laboratory results Abnormal [facility] Potassium [Moles/Vol] 3.6 mmol/L 3.5 - 5.1 mmol/L [facility] Protein [Mass/Vol] 6.7 g/dL 6.3 - 8.2 g/dL [facility] Sodium [Moles/Vol] 141 mmol/L 135 - 145 mmol/L [facility] Urea nitrogen [Mass/Vol] 37 mg/dL High 7 - 17 mg/dL [facility] ECG 12-LEADon 06-25-2024 ECG 12-LEAD IMPRESSION: Ventricular-paced rhythm No further analysis attempted due to paced rhythm No significant changes compared to previous Electronically Signed On 06-25-2024 18:44:17 EST by Kaiden David Normal [facility] ED Provider Noteon ED Provider Note Emergency Department Encounter [facility] ED Patient: Mikel Winston : 1945 [...] provider for clarification.) Kaiden David MD [employer] Kaiden David MD 06/25/241941 Normal [facility] Laboratory - Chemistry and C hemistry - challengeon 06-25-2024 Glucose [Mass/Vol] 184 mg/dL High 70 - 100 mg/dL [facility] Troponin I.cardiac [Mass/Vol] 0.043 ng/mL [facility] Troponin I.cardiac [Mass/Vol] 0.04 ng/mL [facility] 0.[facility] ng/mL [facility] Glucose [Mass/Vol] 140 mg/dL High 70 - 100 mg/dL [facility] Laboratory - Coagulationon 1 08-25-2023 aPTT Coag (PPP) [Time] 25.1 s 20.0 - 30.5 s [facility] INR Coag (PPP) [Relative time] 1.2 {INR} High 0.9 - 1.1 [facility] PT Coag (Bld) [Time] 13.2 s High 9.0 - 1 2.0 s [facility] Laboratory - Microbiology an d Antimicrobial susceptibilityon 06-25-2024 FLUAV RNA HUGO+probe Ql (Resp) Not detected Not Detected [facility] FLUBV RNA HUGO+probe Ql (Resp) Not detected Not Detected [facility] RSV RNA HUGO+probe Ql (Resp) Not detected Not Detected [facility] SARS-CoV-2 (COVID-19) RNA HUGO+probe Ql (Resp) Not detected Not Detected [facility] No Panel Informationon 06-25 Interpretation and review of laboratory results Abnormal [facility] Heart Rate 97 bpm [facility] P [place] 46 degrees [facility] CO Interval 229 ms [facility] QRS [place] -12 degrees [facility] QRSD Interval 140 ms [facility] h QT Interval 399 ms [facility] QTC Interval 507 ms [facility] T Wave [place] 173 degrees [facility] CV EPIPHANY [facility] Interpretation and review of laboratory results Abnormal [facility] Interpretation and review of laboratory results Abnormal [facility] OCCULT BLOOD, STOOLon 2023 OCCULT BLOOD, STOOL FECAL OCCULT, STOOL (A) Reference Positive Negative ORDER COMMENTS: (A) Methodology: Immunoassay Normal [facility] Comment on above: Performed By: #### L [id number] ####Microbiology Manager: RUTH ANN BRAGG ([phone])[facility] ([facility])[address] [place] [address] PROTIME AND APTTon aPTT Coag (Bld) [Time] 25.1 s Normal 20.0-30.5 [facility] Comment on above: Performed By: #### L AB17, [id number], [id number] #### Microbiology Manager: RUTH ANN BRAGG ([phone]) [facility] ([facility]) [address] INR Coag (PPP) [Relative time] 1.2 {INR} High 0.9-1.1 [facility] Comment on above: Result Comment: Daniel mmended Anticoagulant Therapy: SEE BELOW ----- INR of 2.0 - 3.0 : - Prophylaxis of Venous Thrombosis (high-risk surgery) - Treatment of Venous Thrombosis - Treatment of Pulmonary Embolism (Includes tissue heart valves, Acute Myocardial Infarction to prevent systemic embolism, Valvular Heart Disease, and Atrial Fibrillation) ----- INR of 2.5 - 3.5 : - Mechanical Prosthetic Valves (high risk) - If oral anticoagulant therapy is used to prevent Myocardial Infarction Performed By: #### L AB17, [id number], [id number] #### Microbiology Manager: RUTH ANN BRAGG ([phone]) [facility] ([facility]) [address] [place] [address] PT Coag (PPP) [Time] 13.2 s High 9.0-12.0 [facility] Comment on above: Performed By: #### L AB17, MIU351, NFS002 #### Microbiology Manager: RUTH ANN BRAGG ([phone]) [facility] ([facility]) [address] [place] [address] SARS-COV-2, FLU A/B, AND RSV COMBOon 06-25-2024 SARS-CoV-2 (COVID-19) RNA HUGO+probe Ql (Unsp spec) SARS-COV-2 Reference Not Detected Not Detected RESPIRATORY SYNCYTIAL VIRUS Reference Not Detected Not Detected INFLUENZA A (CEPHEID) Reference Not Detected Not Detected INFLUENZA B (CEPHEID) Reference Not Detected Not Detected ORDER COMMENTS: Methodology: real-time, RT-PCR The SARS-CoV-2, Flu A/B, and RSV Combo assay is intended for in vitro diagnostic use under the FDA Emergency Use Authorization (EUA). This test has not been FDA cleared or approved. In compliance with this authorization, please visit www.fda.gov/media/ 1235/download or www.fda.gov/media/ 9893/download to access the applicable information sheets. Normal [facility] Comment on above: Performed By: #### L [id number] ####Microbiology Manager: RUTH ANN BRAGG ([phone])[facility] ([facility])[address] [place] [address] [place] TROPONIN Ion 06-25-2024 Troponin I.cardiac [Mass/Vol] 0.042 ng/mL High <0.034 [facility] Comment on above: Result Comment: OLIVIA Mazariegos COMMENTS: Patients with high levels of Biotin oral intake (ie >5 mg/day) may have falsely decreased Troponin levels. Performed By: #### L AB17, [id number], [id number] #### Microbiology Manager: RUTH ANN BRAGG ([phone]) [facility] ([facility]) [address] [place] [address] [place] Troponin I.cardiac [Mass/Vol] 0.043 ng/mL High <0.034 [facility] Comment on above: Result Comment: OLIVIA Mazariegos COMMENTS: Patients with high levels of Biotin oral intake (ie >5 mg/day) may have falsely decreased Troponin levels. Performed By: #### L AB17, [id number], [id number] #### Microbiology Manager: RUTH ANN BRAGG ([phone]) [facility] ([facility]) [address] [place] [address] [place] TROPONIN, WITH SERIAL REFLEX on 06-25-2024 Troponin I.cardiac [Mass/Vol] 0.040 ng/mL High <0.034 [facility] Comment on above: Result Comment: OLIVIA Mazariegos COMMENTS: Patients with high levels of Biotin oral intake (ie >5 mg/day) may have falsely decreased Troponin levels. Performed By: #### L AB17, [id number], QSU138 #### Microbiology Manager: RUTH ANN PRITCHARDCER ([phone]) [facility] ([facility]) [address] [place] [address] [place] Troponin I.cardiac [Mass/Vol ]on 06-25-2024 Interpretation and review of laboratory results Abnormal [facility] Interpretation and review of laboratory results Abnormal [facility] URINE CULTUREon 06-25-2024 Bacteria identified Cx Nom (U) URINE CULTURE (A) Reference ESCHERICHIA COLI >100,000 CFU/mL Escherichia coli (A) Organism: ESCHERICHIA COLI Antibiotic CHRISTA Interpretation Status Amoxicillin / Clavulanate >=32 ug/ml R F Ampicillin >=32 ug/ml R F Ampicillin / Sulbactam 16 ug/ml I F Aztreonam <=1 ug/ml S F Cefazolin >=64 ug/ml R F Cefepime <=1 ug/ml S F Ceftriaxone <=1 ug/ml S F Ciprofloxacin <=0.25 ug/ml S F Gentamicin <=1 ug/ml S F Meropenem <=0.25 ug/ml S F Nitrofurantoin <=16 ug/ml S F Piperacillin / Tazobactam 64 ug/ml I F Trimethoprim / Sulfamethoxazole >=320 ug/ml R F [ S = SUSCEPTIBLE R = RESISTANT I = INTERMEDIATE S-DD = Susceptible-dose dependent NS = Non-susceptible NO = No Interpretation ] Normal [facility] Comment on above: Performed By: #### L [id number] ####Microbiology Manager: CHERYL STOREY ([phone])[facility] ([address] Urinalysis complete panel (U )Ordered By: Davion Day on 06-25-2024 Bacteria LM.HPF (Urine sed) [#/Area] Moderate Abnormal Negative /HPF [facility] Bilirubin Ql (U) Negative Negative mg/dL [facility] Clarity (U) Clear Clear [facility] Color (U) Light Yellow Lt. Yellow [facility] Epithelial cells.squamous LM.HPF (Urine sed) [#/Area] 0-2 [facility] Glucose Ql (U) Normal Normal (<70) mg/dL [facility] Hemoglobin Ql (U) Negative Negative mg/dL [facility] Interpretation and review of laboratory results Abnormal [facility] [facility] th Ketones (U) [Mass/Vol] Negative Negat balbina mg/dL [facility] Leukocyte clumps LM.HPF (Urine sed) [#/Area] Rare Abnormal Negative /HPF [facility] Leukocyte esterase Test strip Ql (U) 75 Abnormal Negative Yomi/uL [facility] Mucus LM.HPF (Urine sed) [#/Area] Few Negative /LPF [facility] Nitrite Ql (U) Negative Negative [facility] th pH (U) 5.0 [pH] 5.0 - 8.0 pH [facility] Protein (U) [Mass/Vol] 30 mg/dL Abnormal Negative [facility] RBC LM.HPF (Urine sed) [#/Area] 3-5 Abnormal [facility] Specific gravity (U) [Rel density] 1.018 1.005 - 1.030 [facility] Urobilinogen (U) [Mass/Vol] Normal Normal (0-1) mg/dL [facility] WBC LM.HPF (Urine sed) [#/Area] 11-25 Abnormal [facility] Yeast.budding LM.HPF (Urine sed) [#/Area] Few Abnormal Negative /HPF [facility] XR Chest Single viewon 06-25 [facility] Radiology Study observation (narrative) [facility] hank CNOVon 06-11-2024 CNOV Office Visit (FPDOYL) MIKEL WINSTON Ryan ([id number]) 1945 F Date Time Provider Department 06/11/24 1:00 PM KOMAL COHN FPDOYL During your visit today, we recorded the following information about you: Temperature Pulse Blood pressure Weight 97.8 degrees 92/minute 143/90 86.2 kg Height 1.626 m Komal Cohn DO 06/18/2024 7:25 PM Signed [facility] Medicine [place] Cohn DO [address] [place] [address] Date of Evaluation: 06/11/2024 Patient Name: Mikel Winston : 1945 Chief Complaint: Patient presents with: Hospital Discharge: 06/01/24 [facility], pace maker placement. Skin Check: Skin tag right upper shoulder area Nursing Intake: There are no exam notes on file for this visit. Subjective Ms. Winston is a 78 year old female who presents with the following complaint(s): Patient presents to follow up from [facility] 05/29/24-06/01/24. Patient began to feel tired [...] intact. Co (more content not included)... Normal [facility] 06-06-2024 JATIN Telephone (JULIENYL) MIKEL WINSTON ([id number]) 1945 F Date Time Provider Department 06/06/24 KOMAL COHN During your visit today, we [...] Assessed Reason for Visit: Home Care Arrangements [[id number]] Prescriptions as of 06/06/2024 - blood sugar [...] Encounter Status:Closed by ARNEL GOVEA on 06/06/24 Normal [facility] Basic metabolic 1998 panelon 06-01-2024 Anion gap [Moles/Vol] 8 mmol/L 3 - 13 mmol/L [facility] Calcium [Mass/Vol] 9 mg/dL 8.4 - 10. 4 mg/dL [facility] Chloride [Moles/Vol] 109 mmol/L High 98 - 10 7 mmol/L [facility] CO2 [Moles/Vol] 20 mmol/L Low 22 - 30 mmol/L [facility] Creatinine [Mass/Vol] 2.62 mg/dL High 0.52 - 1.04 mg/dL [facility] GFR/1.73 sq M.predicted (S/P/Bld) [Vol rate/Area] 18.2 mL/min Low - PINF [facility] Comment on above: Calculation based on the Chronic Kidney Disease Epidemiology Collaboration (CKD-EPI) equation refit without adjustment for race Glucose [Mass/Vol] 168 mg/dL High 70 - 100 mg/dL [facility] Interpretation and review of laboratory results Abnormal [facility] th Potassium [Moles/Vol] 4 mmol/L 3.5 - 5.1 mmol/L [facility] Sodium [Moles/Vol] 137 mmol/L 135 - 145 mmol/L [facility] Urea nitrogen [Mass/Vol] 62 mg/dL High 7 - 17 mg/dL [facility] CBC W Auto Differential pane l (Bld)Ordered By: Guy Carl on 06-01-2024 Basophils (Bld) [#/Vol] 0 10*3/uL 0.0 - 0.2 10*3/uL [facility] Basophils/100 WBC (Bld) 0.4 % 0.0 - 2.0 % [facility] Eosinophils (Bld) [#/Vol] 0.2 10*3/uL 0. 0 - 0.5 10*3/uL [facility] Eosinophils/100 WBC (Bld) 2 % 0.0 - 6.0 % [facility] Erythrocyte distribution width (RBC) [Ratio] 14.7 % 11.5 - 15.0 % [facility] Hematocrit (Bld) [Volume fraction] 27.6 % Low 35.0 - 47.0 % [facility] Hemoglobin (Bld) [Mass/Vol] 8.7 g/dL Low 11.7 - 16.0 g/dL [facility] Immature granulocytes (Bld) [#/Vol] 0 10*3/uL NINF - 0.1 10*3/uL [facility] Immature granulocytes/100 WBC (Bld) 0.5 % 0.0 - 2.0 % [facility] Interpretation and review of laboratory results Abnormal [facility] th IPF 6 [facility] Lymphocytes (Bld) [#/Vol] 1.1 10*3/uL 1. 0 - 4.3 10*3/uL [facility] Lymphocytes/100 WBC (Bld) 14.6 % Low 15 .0 - 45.0 % [facility] MCH (RBC) [Entitic mass] 31.5 pg 26. 0 - 34.0 pg [facility] MCHC (RBC) [Mass/Vol] 31.5 % 30.5 - 36.0 % [facility] MCV (RBC) [Entitic vol] 100 fL High 77.0 - 99.0 fL [facility] Monocytes (Bld) [#/Vol] 1.4 10*3/uL High 0.0 - 0.9 10*3/uL [facility] Monocytes/100 WBC (Bld) 18.9 % High 5.0 - 13.0 % [facility] Neutrophils (Bld) [#/Vol] 4.7 10*3/uL 1. 8 - 7.5 10*3/uL [facility] Neutrophils/100 WBC (Bld) 63.6 % 38 .0 - 82.0 % [facility] Nucleated RBC/100 WBC (Bld) [Ratio] 0 % [facility] Platelet mean volume (Bld) [Entitic vol] 12.4 fL 9.0 - 12.7 fL [facility] Platelets (Bld) [#/Vol] 83 10*3/uL Low 140 - 440 10*3/uL [facility] RBC (Bld) [#/Vol] 2.76 10*6/uL Low 3.80 - 5.2 0 10*6/uL [facility] WBC (Bld) [#/Vol] 7.3 10*3/uL 3.6 - 10.7 10*3/uL [facility] Laboratory - Chemistry and C hemistry - challengeon 06-01-2024 Glucose [Mass/Vol] 148 mg/dL High 70 - 100 mg/dL [facility] Glucose [Mass/Vol] 149 mg/dL High 70 - 100 mg/dL [facility] No Panel InformationOrdered By: Wil Donaldson on 06-01-2024 P [place] 0 degrees [facility] Work Phone: CO Interval 199 ms [facility] Work Phone: QRS [place] 6 degrees [facility] Work Phone: QRSD Interval 148 ms [facility] Work Phone: QT Interval 509 ms [facility] Work Phone: QTC Interval 509 ms [facility] Work Phone: T Wave [place] 236 degrees [facility] Work Phone: [facility] [employer] Work Phone: No Panel Informationon 06-01 Atrial-ventricular dual-paced complexes Electronically Signed On 06-01-2024 11:57:52 EDT by Wil Alvarado MD - 06/01/2024 IMPRESSION: Atrial-ventricular dual-paced complexes Electronically Signed On 06-01-2024 11:57:52 EDT by Wil Donaldson [facility] Interpretation and review of laboratory results Abnormal [facility] Performed by: [facility], [address] [place] [address] CLIA ID: [id number] [facility] P [place] -26 degrees [facility] CO Interval 233 ms [facility] QRS [place] -70 degrees [facility] QRSD Interval 142 ms [facility] QT Interval 475 ms [facility] QTC Interval 508 ms [facility] T Wave [place] 126 degrees [facility] SINUS RHYTHM Ventricular-pacing Electronically Signed On 06-01-2024 07:44:58 EDT by Wil Alvarado MD - 06/01/2024 IMPRESSION: SINUS RHYTHM Ventricular-pacing Electronically Signed On 06-01-2024 07:44:58 EDT by Wil Donaldson [facility] Interpretation and review of laboratory results Abnormal [facility] Performed by: [facility], [address] [place] [address] CLIA ID: [id number] [facility] Vital signsOrdered By: Wil Donaldson on 06-01-2024 Heart rate 60 /min bpm [facility] Work Phone: Vital signson 06-01-2024 Heart rate 68 /min bpm [facility] XR Chest 2 Viewson Diffuse interstitial thickening similar to previous exam. Report Dictated on Electronically Signed By: Wayne Cardenas MD Electronically Signed Date/Time: 06/01/2024 11:33 AM T [facility] Patient Name: MIKEL WINSTON : [...] noted similar to previous exam. Bones: Unremarkable [facility] Wayne Cardenas MD - 06/01/2024 Patient [...] Electronically Signed Date/Time: 06/01/2024 11:33 AM EDT [facility] Radiology Study observation (narrative) [facility] XR Chest 2 ViewsOrdered By: Wayne Cardenas on 06-01-2024 [facility] Work Phone: Basic metabolic 1998 panelon 05-31-2024 Anion gap [Moles/Vol] 8 mmol/L 3 - 13 mmol/L [facility] Calcium [Mass/Vol] 9.3 mg/dL 8.4 - 10. 4 mg/dL [facility] Chloride [Moles/Vol] 108 mmol/L High 98 - 10 7 mmol/L [facility] CO2 [Moles/Vol] 21 mmol/L Low 22 - 30 mmol/L [facility] Creatinine [Mass/Vol] 2.53 mg/dL High 0.52 - 1.04 mg/dL [facility] GFR/1.73 sq M.predicted (S/P/Bld) [Vol rate/Area] 19 mL/min Low - PINF [facility] Comment on above: Calculation based on the Chronic Kidney Disease Epidemiology Collaboration (CKD-EPI) equation refit without adjustment for race Glucose [Mass/Vol] 102 mg/dL High 70 - 100 mg/dL [facility] Interpretation and review of laboratory results Abnormal [facility] Potassium [Moles/Vol] 4.1 mmol/L 3.5 - 5.1 mmol/L [facility] Sodium [Moles/Vol] 136 mmol/L 135 - 145 mmol/L [facility] Urea nitrogen [Mass/Vol] 57 mg/dL High 7 - 17 mg/dL [facility] CBC W Auto Differential pane l (Bld)Ordered By: Erica Bronson on 05-31-2024 Basophils (Bld) [#/Vol] 0.1 10*3/uL 0.0 - 0.2 10*3/uL [facility] Basophils/100 WBC (Bld) 0.8 % 0.0 - 2.0 % [facility] Eosinophils (Bld) [#/Vol] 0.2 10*3/uL 0. 0 - 0.5 10*3/uL [facility] Eosinophils/100 WBC (Bld) 2.6 % 0.0 - 6.0 % [facility] Erythrocyte distribution width (RBC) [Ratio] 14.4 % 11.5 - 15.0 % [facility] Hematocrit (Bld) [Volume fraction] 27.1 % Low 35.0 - 47.0 % [facility] Hemoglobin (Bld) [Mass/Vol] 8.8 g/dL Low 11.7 - 16.0 g/dL [facility] Immature granulocytes (Bld) [#/Vol] 0 10*3/uL NINF - 0.1 10*3/uL [facility] Immature granulocytes/100 WBC (Bld) 0.3 % 0.0 - 2.0 % [facility] Interpretation and review of laboratory results Abnormal [facility] th IPF 8 [facility] Lymphocytes (Bld) [#/Vol] 1.4 10*3/uL 1. 0 - 4.3 10*3/uL [facility] Lymphocytes/100 WBC (Bld) 22 % 15 .0 - 45.0 % [facility] MCH (RBC) [Entitic mass] 31.7 pg 26. 0 - 34.0 pg [facility] MCHC (RBC) [Mass/Vol] 32.5 % 30.5 - 36.0 % [facility] MCV (RBC) [Entitic vol] 97.5 fL 77.0 - 99.0 fL [facility] Monocytes (Bld) [#/Vol] 1.2 10*3/uL High 0.0 - 0.9 10*3/uL [facility] Monocytes/100 WBC (Bld) 18.6 % High 5.0 - 13.0 % [facility] Neutrophils (Bld) [#/Vol] 3.6 10*3/uL 1. 8 - 7.5 10*3/uL [facility] Neutrophils/100 WBC (Bld) 55.7 % 38 .0 - 82.0 % [facility] Nucleated RBC/100 WBC (Bld) [Ratio] 0 % [facility] Platelet mean volume (Bld) [Entitic vol] 12.5 fL 9.0 - 12.7 fL [facility] Platelets (Bld) [#/Vol] 85 10*3/uL Low 140 - 440 10*3/uL [facility] RBC (Bld) [#/Vol] 2.78 10*6/uL Low 3.80 - 5.2 0 10*6/uL [facility] WBC (Bld) [#/Vol] 6.4 10*3/uL 3.6 - 10.7 10*3/uL [facility] Electrophysiology studyon Successful implantation of a dual chamber permanent pacemaker via the left axillary vein. PLAN: - 2-view CXR in AM. - Device interrogation in AM - The patient will be observed overnight and will likely go home in the morning pending above. CV CPACS HEMO [facility] Laboratory - Chemistry and C hemistry - challengeon 05-31-2024 Glucose [Mass/Vol] 156 mg/dL High 70 - 100 mg/dL [facility] Glucose [Mass/Vol] 108 mg/dL High 70 - 100 mg/dL [facility] Glucose [Mass/Vol] 130 mg/dL High 70 - 100 mg/dL [facility] Glucose [Mass/Vol] 107 mg/dL High 70 - 100 mg/dL [facility] No Panel Informationon 05-31 Interpretation and review of laboratory results Abnormal [facility] th Performed by: [facility], [address] [place] [address] CLIA ID: [id number] [facility] Interpretation and review of laboratory results Abnormal [facility] th Performed by: [facility], [address] [place] [id number] CLIA ID: [id number] [facility] Interpretation and review of laboratory results Abnormal [facility] th Performed by: [facility], [address] [place] [address] CLIA ID: [id number] [facility] Predominant 2:1 AV block Likely type 2 Right bundle branch block LAFB Poor R Wave progression Electronically Signed On 05-31-2024 10:23:14 EDT by Huy Frederick CV Huy Jin MD - 05/31/2024 IMPRESSION: Predominant 2:1 AV block Likely type 2 Right bundle branch block LAFB Poor R Wave progression Electronically Signed On 05-31-2024 10:23:14 EDT by Huy Frederick [facility] Interpretation and review of laboratory results Abnormal [facility] Performed by: [facility], [address] [facility] [address] CLIA ID: [id number] [facility] No Panel InformationOrdered By: Huy Frederick on 05-31-2024 P [place] 54 degrees [facility] Work Phone: CO Interval 282 ms [facility] Work Phone: QRS [place] -64 degrees [facility] Work Phone: QRSD Interval 172 ms [facility] Work Phone: QT Interval 679 ms [facility] Work Phone: QTC Interval 494 ms [facility] Work Phone: T Wave [place] -16 degrees [facility] Work Phone: [facility] Work Phone: Vital signsOrdered By: Huy Frederick on 05-31-2024 Heart rate 32 /min bpm [facility] Work Phone: Laboratory - Chemistry and C hemistry - challengeon 05-30-2024 TSH Qn 3.912 m[IU]/L [facility] h Glucose [Mass/Vol] 183 mg/dL High 70 - 100 mg/dL [facility] Glucose [Mass/Vol] 153 mg/dL High 70 - 100 mg/dL [facility] Glucose [Mass/Vol] 176 mg/dL High 70 - 100 mg/dL [facility] Glucose [Mass/Vol] 117 mg/dL High 70 - 100 mg/dL [facility] Laboratory - Chemistry and C hemistry - challengeOrdered By: Ovidio Carson on 05-30-2024 Troponin I.cardiac [Mass/Vol] 0.145 ng/mL Critically high NINF - 0.034 ng/mL [facility] No Panel Informationon 05-30 Interpretation and review of laboratory results Abnormal [facility] Performed by: [facility], [address] [facility] [address] CLIA ID: [id number] [facility] Interpretation and review of laboratory results Abnormal [facility] Performed by: [facility], [address] [facility] [address] CLIA ID: [id number] [facility] Interpretation and review of laboratory results Abnormal [facility] Performed by: [facility], [address], [facility] [address] CLIA ID: [id number] [facility] Interpretation and review of laboratory results Abnormal [facility] Performed by: [facility], [address], [facility] [address] CLIA ID: [id number] [facility] Sinus bradycardia Prolonged CO interval Right bundle branch block LVH with secondary repolarization abnormality Inferior infarct, old Electronically Signed On 05-30-2024 03:56:08 EDT by Jade Loo, Jade Mendoza, - 05/30/2024 IMPRESSION: Sinus bradycardia Prolonged CO interval Right bundle branch block LVH with secondary repolarization abnormality Inferior infarct, old Electronically Signed On 05-30-2024 03:56:08 EDT by Jade Loo [facility] No Panel InformationOrdered By: Jade Loo on 05-30-2024 P [place] -26 degrees [facility] Work Phone: CO Interval 266 ms [facility] Work Phone: QRS [place] -59 degrees [facility] Work Phone: QRSD Interval 177 ms [facility] h Work Phone: QT Interval 684 ms [facility] Work Phone: QTC Interval 517 ms [facility] Work Phone: T Wave [place] 142 degrees [facility] Work Phone: [facility] Work Phone: TSH Qnon 05-30-2024 Interpretation and review of laboratory results Normal [facility] Troponin I.cardiac [Mass/Vol ]Ordered By: Ovidio Carson on 05-30-2024 Interpretation and review of laboratory results Abnormal [facility] Patients with high levels of Biotin oral intake (ie >5 mg/day) may have falsely decreased Troponin levels. [facility] [employer] Vital signsOrdered By: Jade Loo on 05-30-2024 Heart rate 34 /min bpm [facility] Work Phone: Basic metabolic 1998 panelon 05-29-2024 Anion gap [Moles/Vol] 11 mmol/L 3 - 13 mmol/L [facility] Calcium [Mass/Vol] 9.5 mg/dL 8.4 - 10. 4 mg/dL [facility] Chloride [Moles/Vol] 106 mmol/L 98 - 10 7 mmol/L [facility] CO2 [Moles/Vol] 20 mmol/L Low 22 - 30 mmol/L [facility] Creatinine [Mass/Vol] 2.01 mg/dL High 0.52 - 1.04 mg/dL [facility] GFR/1.73 sq M.predicted (S/P/Bld) [Vol rate/Area] 25 mL/min Low - PINF [facility] Comment on above: Calculation based on the Chronic Kidney Disease Epidemiology Collaboration (CKD-EPI) equation refit without adjustment for race Glucose [Mass/Vol] 122 mg/dL High 70 - 100 mg/dL [facility] Interpretation and review of laboratory results Abnormal [facility] th Potassium [Moles/Vol] 4 mmol/L 3.5 - 5.1 mmol/L [facility] Sodium [Moles/Vol] 137 mmol/L 135 - 145 mmol/L [facility] Urea nitrogen [Mass/Vol] 42 mg/dL High 7 - 17 mg/dL [facility] CBC W Auto Differential pane l (Bld)on 05-29-2024 Basophils (Bld) [#/Vol] 0.1 10*3/uL 0.0 - 0.2 10*3/uL [facility] Basophils/100 WBC (Bld) 0.8 % 0.0 - 2.0 % [facility] Eosinophils (Bld) [#/Vol] 0.1 10*3/uL 0. 0 - 0.5 10*3/uL [facility] Eosinophils/100 WBC (Bld) 2.1 % 0.0 - 6.0 % [facility] Erythrocyte distribution width (RBC) [Ratio] 14.2 % 11.5 - 15.0 % [facility] Hematocrit (Bld) [Volume fraction] 31.2 % Low 35.0 - 47.0 % [facility] Hemoglobin (Bld) [Mass/Vol] 10.1 g/dL Low 11.7 - 16.0 g/dL [facility] Immature granulocytes (Bld) [#/Vol] 0 10*3/uL NINF - 0.1 10*3/uL [facility] Immature granulocytes/100 WBC (Bld) 0.5 % 0.0 - 2.0 % [facility] Interpretation and review of laboratory results Abnormal [facility] IPF 6 [facility] Lymphocytes (Bld) [#/Vol] 1.4 10*3/uL 1. 0 - 4.3 10*3/uL [facility] Lymphocytes/100 WBC (Bld) 22.1 % 15 .0 - 45.0 % [facility] MCH (RBC) [Entitic mass] 31.7 pg 26. 0 - 34.0 pg [facility] MCHC (RBC) [Mass/Vol] 32.4 % 30.5 - 36.0 % [facility] MCV (RBC) [Entitic vol] 97.8 fL 77.0 - 99.0 fL [facility] Monocytes (Bld) [#/Vol] 1.2 10*3/uL High 0.0 - 0.9 10*3/uL [facility] Monocytes/100 WBC (Bld) 19.1 % High 5.0 - 13.0 % [facility] Neutrophils (Bld) [#/Vol] 3.5 10*3/uL 1. 8 - 7.5 10*3/uL [facility] Neutrophils/100 WBC (Bld) 55.4 % 38 .0 - 82.0 % [facility] Nucleated RBC/100 WBC (Bld) [Ratio] 0 % [facility] Platelet mean volume (Bld) [Entitic vol] 12 fL 9.0 - 12.7 fL [facility] Platelets (Bld) [#/Vol] 111 10*3/uL Low 140 - 440 10*3/uL [facility] RBC (Bld) [#/Vol] 3.19 10*6/uL Low 3.80 - 5.2 0 10*6/uL [facility] WBC (Bld) [#/Vol] 6.3 10*3/uL 3.6 - 10.7 10*3/uL [facility] Laboratory - Chemistry and C hemistry - challengeOrdered By: Sylvia Hall on 05-29-2024 Troponin I.cardiac [Mass/Vol] 0.149 ng/mL Critically high NINF - 0.034 ng/mL [facility] Laboratory - Chemistry and C hemistry - challengeon 05-29-2024 Glucose [Mass/Vol] 112 mg/dL High 70 - 100 mg/dL [facility] Magnesium [Mass/Vol] 1.9 mg/dL 1.6 - 2 .3 mg/dL [facility] Laboratory - Chemistry and C hemistry - challengeOrdered By: Jayashree Naranjo on 05-29-2024 Troponin I.cardiac [Mass/Vol] 0.124 ng/mL Critically high NINF - 0.034 ng/mL [facility] Laboratory - Microbiology an d Antimicrobial susceptibilityon 05-29-2024 FLUAV RNA HUGO+probe Ql (Resp) Not detected Not Detected [facility] FLUBV RNA HUGO+probe Ql (Resp) Not detected Not Detected [facility] RSV RNA HUGO+probe Ql (Resp) Not detected Not Detected [facility] SARS-CoV-2 (COVID-19) RNA HUGO+probe Ql (Resp) Not detected Not Detected [facility] SARS-CoV-2 (COVID-19) RNA HUGO+probe Ql (Unsp spec) Methodology: real-time, RT-PCR The SARS-CoV-2, Flu A/B, and RSV Combo assay is intended for in vitro diagnostic use under the FDA Emergency Use Authorization (EUA). This test has not been FDA cleared or approved. In compliance with this authorization, please visit www.fda.gov/media/74 6469/download or www.fda.gov/media/ 8390/download to access the applicable information sheets. [facility] Magnesium [Mass/Vol]on 05-29 Interpretation and review of laboratory results Normal [facility] Natriuretic peptide B [Mass/ Vol]on 05-29-2024 Interpretation and review of laboratory results Abnormal [facility] Natriuretic peptide B (Bld) [Mass/Vol] 3820 pg/mL High <20 - 300 [facility] No Panel Informationon 05-29 Interpretation and review of laboratory results Abnormal [facility] Performed by: [facility], [address] [place] [id number] CLIA ID: [id number] [facility] SARS-CoV-2, Flu A/B, and RSV Comboon 05-29-2024 Interpretation and review of laboratory results Normal [facility] Troponin I.cardiac [Mass/Vol ]Ordered By: Sylvia Hall on 05-29-2024 Interpretation and review of laboratory results Abnormal [facility] Patients with high levels of Biotin oral intake (ie >5 mg/day) may have falsely decreased Troponin levels. [facility] Troponin I.cardiac [Mass/Vol ]Ordered By: Jayashree Naranjo on 05-29-2024 Interpretation and review of laboratory results Abnormal [facility] Patients with high levels of Biotin oral intake (ie >5 mg/day) may have falsely decreased Troponin levels. [facility] XR Chest Single viewon 05-29 Stable cardiomegaly. Chronic interstitial changes within the lungs. Mild superimposed pulmonary vascular congestion is suspected, which appears overall improved when compared to the study dated 01/30/2024. Report Dictated on Electronically Signed By: Shemar Teresa MD Electronically Signed Date/Time: 05/29/2024 7:24 PM EDT [facility] Patient Name: MIKEL WINSTON : 1945 [...] There are degenerative changes of the spine. [facility] Shemar Teresa MD - 05/29/2024 Patient Name: MIKEL WINSTON : 1945 Exam [...] Electronically Signed Date/Time: 05/29/2024 7:24 PM EDT [facility] Radiology Study observation (narrative) [facility] XR Chest Single viewOrdered By: Shemar Teresa on 05-29-2024 [facility] CNOVon 04-27-2024 [facility] Office Visit (FPDOYL) MIKEL WINSTON ([id number]) 1945 F Date Time Provider Department 04/27/24 4:15 PM KOMAL COHN FPDOYL During your visit today, we recorded the following information about you: Temperature Pulse Blood pressure Weight 98.1 degrees 61/minute 130/64 89.8 kg Height 1.626 m Komal Cohn DO 05/06/2024 5:10 PM Signed [facility] Medicine [place] Komal Cohn DO [address] [place] [address] Date of Evaluation: 04/27/2024 Patient Name: Mikel [...] by the patient and a relative. No english language learner tutor was used. Neck Pain Pertinent negatives include [...] moist. Pharynx: (more content not included)... Normal [facility] US Retroperitoneumon 024 1. Unremarkable renal ultrasound without urolithiasis or hydroureteronephrosi s. 2. Limited visualization of the left kidney due to limited acoustic windows probably accounting for the lack of visualization of the small left lower renal pole cyst noted on the prior study. Report Dictated on Electronically Signed By: Robinson Patel MD Electronically Signed Date/Time: 04/27/2024 11:45 AM EDT [facility] Patient Name: MIKEL WINSTON : [...] collection is seen adjacent to the kidneys. [facility] Robinson Patel MD - 04/27/2024 Patient Name: [...] Electronically Signed Date/Time: 04/27/2024 11:45 AM EDT [employer] RetroperitoneumOrdered By : Robinson Patel on 04-27-2024 [employer] Phone: No Panel InformationOrdered By: Judy Tejada on 04-25-2024 Ao mid PSV 152.5 cm/s [employer] Work Phone: L renal orig RI 0.81 [facility] Work Phone: Left kidney length 9.13 cm [facility] [employer] Work Phone: Left renal dist EDV 9.7 cm/s [facility] Phone: Left renal dist PSV 77.0 cm/s [employer] Phone: Left renal dist RAR 0.50 [facility] Work Phone: Left Renal Dist RI 0.87 [facility] [employer] Work Phone: Left renal mid EDV 11.4 cm/s [facility] Phone: Left renal mid PSV 83.8 cm/s [facility] Phone: Left renal mid RAR 0.55 [facility] Work Phone: Left Renal Mid RI 0.86 [facility] Work Phone: Left renal middle parenchyma EDV 2.7 cm/s [facility] Work Phone: Left renal middle parenchyma PSV 14.0 cm/s [facility] Work Phone: Left renal middle parenchyma RI 0.81 [facility] Work Phone: Left renal origin EDV 27.6 cm/s [facility] Work Phone: Left renal origin PSV 141.6 cm/s [facility] Work Phone: Left renal origin RAR 0.93 [facility] Work Phone: Left renal prox EDV 27.6 cm/s [facility] Work Phone: Left renal prox PSV 110.9 cm/s [facility] Work Phone: Left renal prox RAR 0.73 [facility] Work Phone: Left Renal Prox RI 0.75 [facility] Work Phone: Left Renal RAR 0.93 [facility] Work Phone: Left Segmental Renal Artery EDV 2.7 cm/s [facility] Work Phone: Left Segmental Renal Artery PSV 14.0 cm/s [facility] Work Phone: Left Segmental Renal Artery RI 0.81 [facility] Work Phone: Right Arcuate Renal Artery EDV 2.3 cm/s [facility] Work Phone: Right Arcuate Renal Artery PSV 10.7 cm/s [facility] Work Phone: Right Arcuate Renal Artery RI 0.79 [facility] Work Phone: Right kidney length 9.36 cm [facility] Work Phone: Right renal dist EDV 12.9 cm/s [facility] Work Phone: Right renal dist PSV 105.0 cm/s [facility] Work Phone: Right renal dist RAR 0.69 [facility] Work Phone: Right Renal Dist RI 0.88 [facility] Work Phone: Right renal mid EDV 10.1 cm/s [facility] [employer] Work Phone: [phone] Right renal mid PSV 122.0 cm/s [facility] [employer] Work Phone: Right renal mid RAR 0.80 [facility] [employer] Work Phone: Right Renal Mid RI 0.92 [facility] [employer] Work Phone: Right renal middle parenchyma EDV 3.5 cm/s [facility] [employer] Work Phone: [phone] Right renal middle parenchyma PSV 24.2 cm/s [facility] [employer] Work Phone: [phone] Right renal middle parenchyma RI 0.86 [facility] [employer] Work Phone: [phone] Right Renal RAR 0.80 [facility] Work Phone: Right Renal Segmental Accel Time 0.03 s [facility] [employer] Work Phone: [phone] Right Segmental Renal Artery EDV 3.5 cm/s [facility] [employer] Work Phone: [phone] Right Segmental Renal Artery PSV 24.2 cm/s [facility] [employer] Work Phone: [phone] Right Segmental Renal Artery RI 0.86 [facility] Phone: No Panel Informationon 04-25 Significantly limited [...] other means of evaluation if clinically indicated. 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, color Doppler imaging [...] US Retroperitoneumon 024 Radiology Study observation (narrative) [facility] US renal artery dup fanny completeOrdered By: Judy Tejada on 04-25-2024 Left renal dist PSV 77 cm/s [facility] [employer] Work Phone: [phone] Left renal dist RAR 0.5 [facility] [employer] Work Phone: Left renal middle parenchyma PSV 14 cm/s [facility] Work Phone: Left Segmental Renal Artery PSV 14 cm/s [facility] [employer] Work Phone: Right renal dist PSV 105 cm/s [facility] [employer] Work Phone: Right renal mid PSV 122 cm/s [facility] [employer] Work Phone: Right renal mid RAR 0.8 [facility] [employer] Work Phone: Right Renal RAR 0.8 [facility] Work Phone: US Heart TransthoracicOrdere d By: Huy Frederick on 04-18-2024 Ao Root Index 1.39 cm/m2 [facility] Work Phone: [phone] Aortic Root 2.7 cm [facility] [employer] Work Phone: Aortic Sinus Valsalva 2.7 cm [facility] Work Phone: Aortic Sinus Valsalva Index 1.39 cm/m2 [facility] [employer] Work Phone: Ascending Aorta 3.6 cm [facility] Work Phone: [phone] Ascending Aorta Index 1.86 cm/m2 [facility] Work Phone: AV Area by Peak Velocity 1.3 cm2 [facility] Work Phone: AV Area by VTI 1.2 cm2 [facility] Work Phone: [phone] AV Mean Gradient 26 mmHg [facility] Work Phone: AV Mean Velocity 2.4 m/s [facility] Work Phone: [phone] AV Peak Gradient 43 mmHg [facility] Work Phone: [phone] AV Peak Velocity 3.3 m/s [facility] Work Phone: [phone] AV Velocity Ratio 0.27 [facility] Work Phone: [phone] AV VTI 86.3 cm [facility] Work Phone: [phone] VINH/BSA Peak Velocity 0.7 cm2/m2 [facility] Work Phone: [phone] VINH/BSA VTI 0.6 cm2/m2 [facility] Work Phone: [phone] E/E' Lateral 12.44 [facility] Work Phone: E/E' Ratio (Averaged) 14.22 [facility] Work Phone: E/E' Septal 16.00 [facility] Work Phone: EF BP 63 % 55 - 100 % [facility] Work Phone: Fractional Shortening 2D 32 % 28 - 44 % [facility] Work Phone: Interpretation and review of laboratory results Abnormal [facility] Work Phone: IVC Diameter 1.7 cm [facility] Work Phone: IVSd 0.8 cm 0.6 - 0.9 cm [facility] Work Phone: LA Diameter 4.7 cm [facility] Work Phone: LA Size Index 2.42 cm/m2 [facility] Work Phone: LA Volume 2C 68 mL Abnormal 22 - 52 mL [facility] Work Phone: [phone] LA Volume 4C 89 mL Abnormal 22 - 52 mL [facility] Work Phone: LA Volume A/L 89 mL [facility] Work Phone: LA Volume BP 83 mL Abnormal 22 - 52 mL [facility] Work Phone: LA Volume Index 2C 35 mL/m2 Abnormal 16 - 34 mL/m2 [facility] Work Phone: [phone] LA Volume Index 4C 46 mL/m2 Abnormal 16 - 34 mL/m2 [facility] Work Phone: LA Volume Index A/L 46 mL/m2 16 - 34 mL/m2 [facility] Work Phone: LA Volume Index BP 43 ml/m2 Abnormal 16 - 34 ml/m2 [facility] Work Phone: LA/AO Root Ratio 1.74 [facility] Work Phone: LV E' Lateral Velocity 9 cm/s [facility] Work Phone: LV E' Septal Velocity 7 cm/s [facility] Work Phone: LV EDV A2C 114 mL [facility] Work Phone: LV EDV A4C 102 mL [facility] Work Phone: LV EDV BP 108 mL Abnormal 56 - 104 mL [facility] Work Phone: LV EDV Index A2C 59 mL/m2 [facility] Work Phone: LV EDV Index A4C 53 mL/m2 [facility] Work Phone: LV EDV Index BP 56 mL/m2 [facility] Work Phone: LV Ejection Fraction A2C 73 % [facility] Work Phone: LV Ejection Fraction A4C 52 % [facility] Work Phone: LV ESV A2C 31 mL [facility] Work Phone: LV ESV A4C 48 mL [facility] Work Phone: [phone] LV ESV BP 39 mL 19 - 49 mL [facility] Work Phone: [phone] LV ESV Index A2C 16 mL/m2 [facility] Work Phone: LV ESV Index A4C 25 mL/m2 [facility] Work Phone: [phone] LV ESV Index BP 20 mL/m2 [facility] Work [phone] LV Mass 2D 187.3 g Abnormal 67 - 162 g [facility] Work Phone: [phone] LV Mass 2D Index 96.5 g/m2 Abnormal 43 - 95 g/m2 [facility] Work Phone: [phone] LV RWT Ratio 0.42 [facility] Work Phone: [phone] LVIDd 5.3 cm 3.9 - 5.3 cm [facility] Work Phone: [phone] LVIDd Index 2.73 cm/m2 [facility] Work Phone: [phone] LVIDs 3.6 cm [facility] Work Phone: [phone] LVIDs Index 1.86 cm/m2 [facility] Work Phone: LVOT Area 4.9 cm2 [facility] Work Phone: LVOT Cardiac Output 7.3 liter/mi nut e [facility] Work [phone] LVOT Diameter 2.5 cm [facility] Work Phone: [phone] LVOT Mean Gradient 2 mmHg [facility] Work Phone: [phone] LVOT Peak Gradient 3 mmHg [facility] Work Phone: [phone] LVOT Peak Velocity 0.9 m/s [facility] Work Phone: [phone] LVOT Stroke Volume Index 54.6 mL/m2 [facility] Work [phone] LVOT SV 106.0 ml [facility] Work Phone: [phone] LVOT VTI 21.6 cm [facility] Work Phone: LVOT:AV VTI Index 0.25 [facility] Work Phone: [phone] LVPWd 1.1 cm Abnormal 0.6 - 0.9 cm [facility] Work Phone: [phone] MV [facility] Vel[facility] E Velocity 1.12 [facility]s [facility] Work Phone: [phone] MV E Wave Deceleration Time 215.5 ms [facility] Work Phone: [phone] MV E/A 1.38 [facility] Work Phone: [phone] Pulmonary Artery EDP 6 mmHg [facility] Work Phone: RA Area 4C 70.6 mL [facility] Work Phone: [phone] RA Area 4C 68.3 mL [facility] Work Phone: [phone] RV Basal Dimension 4.6 cm [facility] Work Phone: [phone] RV Free Wall Peak S' 7 cm/s [facility] Work Phone: RV Mid Dimension 3.5 cm [facility] al[facility] Work Phone: [phone] TAPSE 1.4 cm Abnormal 1.7 cm [facility] Work Phone: TR Max Velocity 3.01 m/s [facility] Work Phone: TR Peak Gradient 36 mmHg [facility] Work Phone: [phone] [facility] Work Phone: [phone] Heart Transthoracicon Left Ventricle: Left ventricle size [...] 178/88 mmHg. No contrast was given. CV [facility] CNOVon 03-16-2024 CNOV Office Visit (FPDOYL) MIKEL WINSTON ([id number]) 1945 F Date Time Provider Department 03/16/24 3:15 PM KOMAL COHN During your visit today, we recorded the following information about you: Pulse Blood pressure Weight Height 60/minute 120/52 88.9 kg 1.626 m Komal CohnDO 03/20/2024 9:06 PM Signed [facility] Medicine [place] Caputa DO Lalit [address] [place] [address] Date of Evaluation: 03/16/2024 Patient Name: Mikel [...] history is provided by the patient. No english language learner tutor was used. Edema This is a new [...] TO ROSA (more content not included)... 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, Fernanda Keith called to request a [...] type, unspecified site [M19.90] Order(s):PARKING FOR HANDICAPPED [[id number]] Order #: [id number] Prescriptions as of 03/22/2024 - sulfamethoxazole-tri methoprim [...] [R60.0] 05/03/2022 Chronic kidney disease, stage 3b ([facility]) [N18.32] 12/01/2022 Acute deep vein thrombosis (DVT) of other speci*12/01/2022 Congestive heart failure, unspecified HF chroni*12/01/2022 Angina at rest ([facility]) [I20.89] 12/01/2022 Class 1 obesity with body mass index (BMI) of 3*12/01/2022 Systolic murmur [R01.1] 12/26/2022 Platelets decreased ([facility]) [D69.6] 12/26/2022 Depression [F32.A] 12/11/2023 BARRY (acute kidney injury) ([facility]) [N17.9] 11/18/2022 Cellulitis of right lower extremity [L03.115] 01/28/2024 Coronary artery disease involving coronary bypa*09/30/2022 Dyslipidemia [E78.5] 09/30/2022 Nonrheumatic aortic valve stenosis [I35.0] 09/30/2022 Encounter Status:Closed by NANETTE NELSON on 03/22/24 [facility] CNOVon 02-27-2024 CNOV Office Visit (FPDOYL) MIKEL WINSTON ([id number]) 1945 F Date Time Provider Department 02/27/24 3:15 PM KOMAL COHN During your visit today, we recorded the following information about you: Temperature Pulse Blood pressure Weight 97.5 degrees 63/minute 140/60 90.3 kg Height 1.626 m Komal Cohn, 03/05/2024 9:46 PM Signed Transitional Care Management TCM Eligibility Documentation Program: Transitional Care Management Status: Enrolled Effective Dates: 02/15/2024 - present Responsible Staff: Latonya Rosado RN Discharge date: 02/13/2024 (Program start) Date of initial contact: 02/15/2024 Initial contact Target status: Successful; Contact made within 2 business days post-discharge Summary Discharged from: [facility] Admit Date: 01/28/24 Admitted for: cellulitis [...] Cmt: Sum (more content not included)... Normal [facility] 02-15-2024 [facility] Telephone ([facility]) MIKEL WINSTON ([id number]) 1945 F Date Time Provider Department 02/15/24 KOMAL COHN MARYAN [facility] During your visit today, we recorded the [...] 12/01/2022 Systolic murmur [R01.1] 12/26/2022 Platelets decreased ([facility]) [D69.6] 12/26/2022 Depression [F32.A] 12/11/2023 Prescriptions ordered this encounter Disp Refills Start End SITAGLIPTIN PHOSPHATE 25 MG TABLET 30 t* 2 02/16/2024 Route: ORAL Sig: Take 1 tablet by mouth once daily. Encounter Status:Closed by KOMAL COHN on 02/16/24 [facility] CBC W Auto Differential pane l (Bld)on 02-02-2024 Basophils (Bld) [#/Vol] 0.1 10*3/uL 0.0 - 0.2 10*3/uL [facility] Basophils/100 WBC (Bld) 0.7 % 0.0 - 2.0 % [facility] [employer] Eosinophils (Bld) [#/Vol] 0.6 10*3/uL High 0. 0 - 0.5 10*3/uL [facility] Eosinophils/100 WBC (Bld) 6.7 % High 0.0 - 6.0 % [facility] [employer] Erythrocyte distribution width (RBC) [Ratio] 13.3 % 11.5 - 15.0 % [facility] Hematocrit (Bld) [Volume fraction] 35.7 % 35.0 - 47.0 % [facility] Hemoglobin (Bld) [Mass/Vol] 11.3 g/dL Low 11.7 - 16.0 g/dL [facility] [employer] Immature granulocytes (Bld) [#/Vol] 0.0 10*3/uL NINF - 0.1 10*3/uL [facility] Immature granulocytes/100 WBC (Bld) 0.4 % 0.0 - 2.0 % [facility] Interpretation and review of laboratory results Abnormal [facility] th Lymphocytes (Bld) [#/Vol] 1.3 10*3/uL 1. 0 - 4.3 10*3/uL [facility] Lymphocytes/100 WBC (Bld) 16.1 % 15 .0 - 45.0 % [facility] MCH (RBC) [Entitic mass] 31.6 pg 26. 0 - 34.0 pg [facility] MCHC (RBC) [Mass/Vol] 31.7 % 30.5 - 36.0 % [facility] MCV (RBC) [Entitic vol] 99.7 fL High 77.0 - 99.0 fL [facility] Monocytes (Bld) [#/Vol] 1.3 10*3/uL High 0.0 - 0.9 10*3/uL [facility] Monocytes/100 WBC (Bld) 15.1 % High 5.0 - 13.0 % [facility] Neutrophils (Bld) [#/Vol] 5.1 10*3/uL 1. 8 - 7.5 10*3/uL [facility] Neutrophils/100 WBC (Bld) 61.0 % 38 .0 - 82.0 % [facility] Nucleated RBC/100 WBC (Bld) [Ratio] 0.0 % [facility] Platelet mean volume (Bld) [Entitic vol] 11.8 fL 9.0 - 12.7 fL [facility] Platelets (Bld) [#/Vol] 146 10*3/uL 140 - 440 10*3/uL [facility] RBC (Bld) [#/Vol] 3.58 10*6/uL Low 3.80 - 5.2 0 10*6/uL [facility] WBC (Bld) [#/Vol] 8.3 10*3/uL 3.6 - 10.7 10*3/uL [facility] Comprehensive metabolic 1998 panelon 02-02-2024 Albumin [Mass/Vol] 3.4 g/dL Low 3.5 - 5.0 g/dL [facility] ALP [Catalytic activity/Vol] 105 U/L 38 - 126 U/L [facility] ALT [Catalytic activity/Vol] 26 U/L 0 - 34 U/L [facility] Anion gap [Moles/Vol] 10 mmol/L 3 - 13 mmol/L [facility] AST [Catalytic activity/Vol] 44 U/L 15 - 46 U/L [facility] Bilirubin [Mass/Vol] 1.0 mg/dL 0.2 - 1 .3 mg/dL [facility] Calcium [Mass/Vol] 8.8 mg/dL 8.4 - 10. 4 mg/dL [facility] Chloride [Moles/Vol] 102 mmol/L 98 - 10 7 mmol/L [facility] CO2 [Moles/Vol] 22 mmol/L 22 - 30 mmol/L [facility] Creatinine [Mass/Vol] 1.66 mg/dL High 0.52 - 1.04 mg/dL [facility] GFR/1.73 sq M.predicted MDRD (S/P/Bld) [Vol rate/Area] 31.5 mL/min/{1.73_m2} Low - PINF [facility] Comment on above: Calculation based on the Chronic Kidney Disease Epidemiology Collaboration (CKD-EPI) equation refit without adjustment for race Glucose [Mass/Vol] 120 mg/dL High 70 - 100 mg/dL [facility] Interpretation and review of laboratory results Abnormal [facility] Potassium [Moles/Vol] 4.5 mmol/L 3.5 - 5.1 mmol/L [facility] Protein [Mass/Vol] 7.0 g/dL 6.3 - 8.2 g/dL [facility] Sodium [Moles/Vol] 134 mmol/L Low 135 - 145 mmol/L [facility] Urea nitrogen [Mass/Vol] 34 mg/dL High 7 - 17 mg/dL [facility] - Chemistry and C hemistry - challengeon 02-02-2024 Glucose [Mass/Vol] 186 mg/dL High 70 - 100 mg/dL [facility] Glucose [Mass/Vol] 121 mg/dL High 70 - 100 mg/dL [facility] No Panel Informationon 02-01 Interpretation and review of laboratory results Abnormal [facility] Performed by: [facility], [address] [address] CLIA ID: [id number] [facility] Interpretation and review of laboratory results Abnormal [facility] Performed by: [facility], [address] [address] CLIA ID: [id number] [facility] Radiology Study observation (narrative) [facility] Radiology Study observation (narrative) [facility] CBC W Auto Differential pane l (Bld)Ordered By: Jr Chase on 02-01-2024 Erythrocyte distribution width (RBC) [Ratio] 13.5 % 11.5 - 15.0 % [facility] Hematocrit (Bld) [Volume fraction] 30.2 % Low 35.0 - 47.0 % [facility] Hemoglobin (Bld) [Mass/Vol] 9.8 g/dL Low 11.7 - 16.0 g/dL [facility] MCH (RBC) [Entitic mass] 32.0 pg 26. 0 - 34.0 pg [facility] MCHC (RBC) [Mass/Vol] 32.5 % 30.5 - 36.0 % [facility] MCV (RBC) [Entitic vol] 98.7 fL 77.0 - 99.0 fL [facility] Platelet mean volume (Bld) [Entitic vol] 11.3 fL 9.0 - 12.7 fL [facility] Platelets (Bld) [#/Vol] 90 10*3/uL Low 140 - 440 10*3/uL [facility] RBC (Bld) [#/Vol] 3.06 10*6/uL Low 3.80 - 5.2 0 10*6/uL [facility] WBC (Bld) [#/Vol] 6.4 10*3/uL 3.6 - 10.7 10*3/uL [facility] Comprehensive metabolic 1998 panelon 02-01-2024 Albumin [Mass/Vol] 2.9 g/dL Low 3.5 - 5.0 g/dL [facility] ALP [Catalytic activity/Vol] 95 U/L 38 - 126 U/L [facility] ALT [Catalytic activity/Vol] 21 U/L 0 - 34 U/L [facility] Anion gap [Moles/Vol] 8 mmol/L 3 - 13 mmol/L [facility] AST [Catalytic activity/Vol] 36 U/L 15 - 46 U/L [facility] Bilirubin [Mass/Vol] 1.0 mg/dL 0.2 - 1 .3 mg/dL [facility] Calcium [Mass/Vol] 8.4 mg/dL 8.4 - 10. 4 mg/dL [facility] Chloride [Moles/Vol] 104 mmol/L 98 - 10 7 mmol/L [facility] CO2 [Moles/Vol] 22 mmol/L 22 - 30 mmol/L [facility] Creatinine [Mass/Vol] 1.69 mg/dL High 0.52 - 1.04 mg/dL [facility] GFR/1.73 sq M.predicted MDRD (S/P/Bld) [Vol rate/Area] 30.8 mL/min/{1.73_m2} Low - PINF [facility] Comment on above: Calculation based on the Chronic Kidney Disease Epidemiology Collaboration (CKD-EPI) equation refit without adjustment for race Glucose [Mass/Vol] 107 mg/dL High 70 - 100 mg/dL [facility] Interpretation and review of laboratory results Abnormal [facility] th Potassium [Moles/Vol] 3.8 mmol/L 3.5 - 5.1 mmol/L [facility] Protein [Mass/Vol] 6.0 g/dL Low 6.3 - 8.2 g/dL [facility] Sodium [Moles/Vol] 135 mmol/L 135 - 145 mmol/L [facility] Urea nitrogen [Mass/Vol] 34 mg/dL High 7 - 17 mg/dL [facility] Laboratory - Chemistry and C hemistry - challengeon 02-01-2024 Glucose [Mass/Vol] 183 mg/dL High 70 - 100 mg/dL [facility] Glucose [Mass/Vol] 175 mg/dL High 70 - 100 mg/dL [facility] Glucose [Mass/Vol] 149 mg/dL High 70 - 100 mg/dL [facility] Glucose [Mass/Vol] 114 mg/dL High 70 - 100 mg/dL [facility] Magnesium [Mass/Vol] 2.2 mg/dL 1.6 - 2 .3 mg/dL [facility] Laboratory - Hematology and Cell countson 02-01-2024 Basophils (Bld) [#/Vol] 0.1 10*3/uL 0.0 - 0.2 10*3/uL [facility] Basophils/100 WBC (Bld) 1 % 0 - 2 % [facility] Yeison cells LM Ql (Bld) Slight Abnormal (none) [facility] Eosinophils (Bld) [#/Vol] 0.4 10*3/uL 0. 0 - 0.5 10*3/uL [facility] Eosinophils/100 WBC (Bld) 7 % High 0 - 6 % [facility] Lymphocytes (Bld) [#/Vol] 0.5 10*3/uL Low 1. 0 - 4.3 10*3/uL [facility] Lymphocytes/100 WBC (Bld) 8 % Low 15 - 45 % [facility] Monocytes (Bld) [#/Vol] 0.6 10*3/uL 0.0 - 0.9 10*3/uL [facility] Monocytes/100 WBC (Bld) 9 % 5 - 13 % [facility] Neutrophils (Bld) [#/Vol] 4.8 10*3/uL 1. 8 - 7.5 10*3/uL [facility] RBC morphology finding Nom (Bld) abnormal [facility] Segmented neutrophils/100 WBC (Bld) 75 % 38 - 82 % [facility] Magnesium [Mass/Vol]on 01-31 Interpretation and review of laboratory results Normal [facility] No Panel Informationon 01-31 Interpretation and review of laboratory results Abnormal [facility] Performed by: [facility], [address] [place] [address] CLIA ID: [id number] [facility] Interpretation and review of laboratory results Abnormal [facility] Performed by: [facility], [address] [place] [address] CLIA ID: [id number] [facility] Interpretation and review of laboratory results Abnormal [facility] Performed by: [facility], [address] [place] [address] CLIA ID: [id number] [facility] Interpretation and review of laboratory results Abnormal [facility] Performed by: [facility], [address] [place] [address] CLIA ID: [id number] [facility] Atypical Lymphocytes Manual [facility] Bands Manual [facility] Basophils Manual 1 [facility] Blasts Manual [facility] Eosinophils Manual 7 High 0 - 1 [facility] Lymphocytes Manual 8 [facility] Metamyelocytes Manual [facility] Monocytes Manual 9 [facility] Myelocytes Manual [facility] Neutrophils Manual 75 [facility] Promyelocytes Manual [facility] Unclassified Cells, Manual [facility] Radiology Study observation (narrative) [facility] Radiology Study observation (narrative) [facility] Radiology Study observation (narrative) [facility] Radiology Study observation (narrative) [facility] No Panel InformationOrdered By: Jr Chase on 02-01-2024 Interpretation and review of laboratory results Abnormal [facility] Bacteria identified Cx Nom ( U)Ordered By: Farideh Aguilar on 01-31-2024 Interpretation and review of laboratory results Abnormal [facility] CBC W Auto Differential pane l (Bld)Ordered By: Kathya Dotson on 01-31-2024 Erythrocyte distribution width (RBC) [Ratio] 13.7 % 11.5 - 15.0 % [facility] Hematocrit (Bld) [Volume fraction] 28.7 % Low 35.0 - 47.0 % [facility] Hemoglobin (Bld) [Mass/Vol] 9.5 g/dL Low 11.7 - 16.0 g/dL [facility] Interpretation and review of laboratory results Abnormal [facility] IPF 4 [facility] MCH (RBC) [Entitic mass] 32.3 pg 26. 0 - 34.0 pg [facility] MCHC (RBC) [Mass/Vol] 33.1 % 30.5 - 36.0 % [facility] MCV (RBC) [Entitic vol] 97.6 fL 77.0 - 99.0 fL [facility] Platelet mean volume (Bld) [Entitic vol] 11.9 fL 9.0 - 12.7 fL [facility] Platelets (Bld) [#/Vol] 83 10*3/uL Low 140 - 440 10*3/uL [facility] RBC (Bld) [#/Vol] 2.94 10*6/uL Low 3.80 - 5.2 0 10*6/uL [facility] WBC (Bld) [#/Vol] 8.8 10*3/uL 3.6 - 10.7 10*3/uL [facility] Comprehensive metabolic 1998 panelon 01-31-2024 Albumin [Mass/Vol] 2.7 g/dL Low 3.5 - 5.0 g/dL [facility] ALP [Catalytic activity/Vol] 52 U/L 38 - 126 U/L [facility] ALT [Catalytic activity/Vol] 19 U/L 0 - 34 U/L [facility] Anion gap [Moles/Vol] 8 mmol/L 3 - 13 mmol/L [facility] AST [Catalytic activity/Vol] 32 U/L 15 - 46 U/L [facility] Bilirubin [Mass/Vol] 1.3 mg/dL 0.2 - 1 .3 mg/dL [facility] Calcium [Mass/Vol] 8.7 mg/dL 8.4 - 10. 4 mg/dL [facility] Chloride [Moles/Vol] 105 mmol/L 98 - 10 7 mmol/L [facility] CO2 [Moles/Vol] 23 mmol/L 22 - 30 mmol/L [facility] Creatinine [Mass/Vol] 1.62 mg/dL High 0.52 - 1.04 mg/dL [facility] GFR/1.73 sq M.predicted MDRD (S/P/Bld) [Vol rate/Area] 32.4 mL/min/{1.73_m2} Low - PINF [facility] Comment on above: Calculation based on the Chronic Kidney Disease Epidemiology Collaboration (CKD-EPI) equation refit without adjustment for race Glucose [Mass/Vol] 141 mg/dL High 70 - 100 mg/dL [facility] Interpretation and review of laboratory results Abnormal [facility] Potassium [Moles/Vol] 3.2 mmol/L Low 3.5 - 5.1 mmol/L [facility] Protein [Mass/Vol] 5.8 g/dL Low 6.3 - 8.2 g/dL [facility] Sodium [Moles/Vol] 136 mmol/L 135 - 145 mmol/L [facility] Urea nitrogen [Mass/Vol] 26 mg/dL High 7 - 17 mg/dL [facility] Laboratory - Chemistry and C hemistry - challengeon 01-31-2024 Glucose [Mass/Vol] 216 mg/dL High 70 - 100 mg/dL [facility] Glucose [Mass/Vol] 155 mg/dL High 70 - 100 mg/dL [facility] Glucose [Mass/Vol] 203 mg/dL High 70 - 100 mg/dL [facility] Glucose [Mass/Vol] 148 mg/dL High 70 - 100 mg/dL [facility] Magnesium [Mass/Vol] 1.5 mg/dL Low 1.6 - 2 .3 mg/dL [facility] Laboratory - Hematology and Cell countson 01-31-2024 Basophils (Bld) [#/Vol] 0.1 10*3/uL 0.0 - 0.2 10*3/uL [facility] Basophils/100 WBC (Bld) 1 % 0 - 2 % [facility] Eosinophils (Bld) [#/Vol] 0.1 10*3/uL 0. 0 - 0.5 10*3/uL [facility] Eosinophils/100 WBC (Bld) 1 % 0 - 6 % [facility] Lymphocytes (Bld) [#/Vol] 0.5 10*3/uL Low 1. 0 - 4.3 10*3/uL [facility] Lymphocytes/100 WBC (Bld) 6 % Low 15 - 45 % [facility] Monocytes (Bld) [#/Vol] 0.9 10*3/uL 0.0 - 0.9 10*3/uL [facility] Monocytes/100 WBC (Bld) 10 % 5 - 13 % [facility] Neutrophils (Bld) [#/Vol] 7.2 10*3/uL 1. 8 - 7.5 10*3/uL [facility] RBC morphology finding Nom (Bld) Normal [facility] Segmented neutrophils/100 WBC (Bld) 82 % 38 - 82 % [facility] Laboratory - Microbiology an d Antimicrobial susceptibilityOrdered By: Farideh Aguilar on 01-31-2024 Bacteria identified Cx Nom (U) >100,000 CFU/mL Escherichia coli Abnormal [facility] Magnesium [Mass/Vol]on 01-30 Interpretation and review of laboratory results Abnormal [facility] No Panel Informationon 01-30 Interpretation and review of laboratory results Abnormal [facility] Performed by: [facility], [address] [place] [address] CLIA ID: [id number] [facility] Interpretation and review of laboratory results Abnormal [facility] Performed by: [facility], [address] [place] [id number] CLIA ID: [id number] [facility] Interpretation and review of laboratory results Abnormal [facility] Performed by: [facility], [address] [facility] [address] CLIA ID: [id number] [facility] Interpretation and review of laboratory results Abnormal [facility] Performed by: [facility], [address] [place] [address] [place] [address] CLIA ID: [id number] [facility] Atypical Lymphocytes Manual [facility] Bands Manual [facility] Basophils Manual 1 [facility] Blasts [facility] E[facility] Manual 1 0 - 1 [facility] Interpretation and review of laboratory results Abnormal [facility] Lymphocytes Manual 6 [facility] Metamyelocytes Manual [facility] Monocytes Manual 10 [facility] Myelocytes Manual [facility] ealth Neutrophils Manual 84 [facility] Promyelocytes Manual [facility] Unclassified Cells, Manual [facility] Radiology Study observation (narrative) [facility] Radiology Study observation (narrative) [facility] Radiology Study observation (narrative) [facility] Radiology Study observation (narrative) [facility] CBC W Auto Differential pane l (Bld)Ordered By: Osiel White on 01-30-2024 Erythrocyte distribution width (RBC) [Ratio] 13.9 % 11.5 - 15.0 % [facility] Hematocrit (Bld) [Volume fraction] 31.6 % Low 35.0 - 47.0 % [facility] Hemoglobin (Bld) [Mass/Vol] 10.1 g/dL Low 11.7 - 16.0 g/dL [facility] Interpretation and review of laboratory results Abnormal [facility] IPF 4 [facility] MCH (RBC) [Entitic mass] 31.9 pg 26. 0 - 34.0 pg [facility] MCHC (RBC) [Mass/Vol] 32.0 % 30.5 - 36.0 % [facility] MCV (RBC) [Entitic vol] 99.7 fL High 77.0 - 99.0 fL [facility] Platelet mean volume (Bld) [Entitic vol] 11.8 fL 9.0 - 12.7 fL [facility] Platelets (Bld) [#/Vol] 81 10*3/uL Low 140 - 440 10*3/uL [facility] RBC (Bld) [#/Vol] 3.17 10*6/uL Low 3.80 - 5.2 0 10*6/uL [facility] WBC (Bld) [#/Vol] 6.2 10*3/uL 3.6 - 10.7 10*3/uL [facility] CRP [Mass/Vol]on 01-30-2024 Interpretation and review of laboratory results Abnormal [facility] Comprehensive metabolic 1998 panelon 01-30-2024 Albumin [Mass/Vol] 3.1 g/dL Low 3.5 - 5.0 g/dL [facility] ALP [Catalytic activity/Vol] 79 U/L 38 - 126 U/L [facility] ALT [Catalytic activity/Vol] 23 U/L 0 - 34 U/L [facility] Anion gap [Moles/Vol] 7 mmol/L 3 - 13 mmol/L [facility] AST [Catalytic activity/Vol] 40 U/L 15 - 46 U/L [facility] Bilirubin [Mass/Vol] 1.0 mg/dL 0.2 - 1 .3 mg/dL [facility] Calcium [Mass/Vol] 8.8 mg/dL 8.4 - 10. 4 mg/dL [facility] Chloride [Moles/Vol] 111 mmol/L High 98 - 10 7 mmol/L [facility] CO2 [Moles/Vol] 21 mmol/L Low 22 - 30 mmol/L [facility] Creatinine [Mass/Vol] 1.58 mg/dL High 0.52 - 1.04 mg/dL [facility] GFR/1.73 sq M.predicted MDRD (S/P/Bld) [Vol rate/Area] 33.4 mL/min/{1.73_m2} Low - PINF [facility] Comment on above: Calculation based on the Chronic Kidney Disease Epidemiology Collaboration (CKD-EPI) equation refit without adjustment for race Glucose [Mass/Vol] 148 mg/dL High 70 - 100 mg/dL [facility] Interpretation and review of laboratory results Abnormal [facility] Potassium [Moles/Vol] 3.7 mmol/L 3.5 - 5.1 mmol/L [facility] Protein [Mass/Vol] 6.4 g/dL 6.3 - 8.2 g/dL [facility] Sodium [Moles/Vol] 138 mmol/L 135 - 145 mmol/L [facility] Urea nitrogen [Mass/Vol] 30 mg/dL High 7 - 17 mg/dL [facility] Laboratory - Chemistry and C hemistry - challengeon 01-30-2024 Glucose [Mass/Vol] 180 mg/dL High 70 - 100 mg/dL [facility] Glucose [Mass/Vol] 185 mg/dL High 70 - 100 mg/dL [facility] Glucose [Mass/Vol] 179 mg/dL High 70 - 100 mg/dL [facility] Glucose [Mass/Vol] 169 mg/dL High 70 - 100 mg/dL [facility] Procalcitonin [Mass/Vol] 0.12 ng/mL High 0.0 0 - 0.09 ng/mL [facility] CRP [Mass/Vol] 18.3 mg/L High NINF - 10.0 mg/L [facility] No Panel Informationon 01-29 Interpretation and review of laboratory results Abnormal [facility] Performed by: [facility], [address] [place] [address] CLIA ID: [id number] [facility] Interpretation and review of laboratory results Abnormal [facility] Performed by: [facility], [address] [place] [address], [facility] [address] CLIA ID: [id number] [facility] Interpretation and review of laboratory results Abnormal [facility] Performed by: [facility], [address] [place] [address], [facility] [address] CLIA ID: [id number] [facility] No evidence of deep vein and superficial [...] Vein: Patent, compressible. Peroneal Vein: Patent, compressible. 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, color Doppler imaging, [...] Interpretation and review of laboratory results Abnormal [facility]: [facility], [address] [place] [address] CLIA ID: [id number] [facility] Radiology Study observation (narrative) [facility] Radiology Study observation (narrative) [facility] Radiology Study observation (narrative) [facility] Radiology Study observation (narrative) [facility] Procalcitonin [Mass/Vol]on 0 01-30-2024 Interpretation and review of laboratory results Abnormal [facility] PCT <0.50 = Low risk of severe sepsis and/or septic shock. PCT >2.00 = High risk of severe sepsis and/or septic shock. [facility] Retroperitoneumon 024 Unremarkable renal ultrasound. Report Dictated on Electronically Signed By: Kj Serna DO Electronically Signed Date/Time: 01/30/2024 10:57 AM [facility]INST[facility] 1945 [id number] Exam Date/Time: 01/26/2024 18:07 Procedure: US RETROPERITONEAL [...] the kidneys. The bladder is grossly unremarkable. [facility] Kj Serna DO - 01/30/2024 Patient Name: [...] Electronically Signed Date/Time: 01/30/2024 10:57 AM EDT [employer] US RetroperitoneumOrdered By : Kj Serna on 01-30-2024 [employer] Work Phone: Urinalysis complete panel (U )on 01-30-2024 Bacteria LM.HPF (Urine sed) [#/Area] Few Abnormal Negative /HPF [employer] Bilirubin Ql (U) Negative Negative mg/dL [employer] [facility] Clarity (U) Turbid Abnormal Clear [employer] [facility] Color (U) Yellow Lt. Yellow [facility] Epithelial cells.squamous LM.HPF (Urine sed) [#/Area] 3-5 [facility] Glucose Ql (U) 200 mg/dL Abnormal Normal (<70) [facility] Hemoglobin Ql (U) >1.0 Abnormal Negative mg/dL [facility] Interpretation and review of laboratory results Abnormal [facility] Ketones (U) [Mass/Vol] Negative Negat balbina mg/dL [facility] Leukocyte esterase Test strip Ql (U) 75 Abnormal Negative Yomi/uL [facility] Mucus LM.HPF (Urine sed) [#/Area] Few Negative /LPF [facility] Nitrite Ql (U) Negative Negative [facility] th pH (U) 5.5 [pH] 5.0 - 8.0 pH [facility] Protein (U) [Mass/Vol] 50 mg/dL Abnormal Negative [facility] RBC LM.HPF (Urine sed) [#/Area] 51-100 Abnormal [facility] Specific gravity (U) [Rel density] 1.015 1.005 - 1.030 [facility] Urobilinogen (U) [Mass/Vol] 2 mg/dL Abnormal Normal (0-1) [facility] WBC LM.HPF (Urine sed) [#/Area] 11-25 Abnormal [facility] XR Chest Single viewon 01-29 Cardiomegaly with interstitial edema. Possible consolidation at the base of the right upper lobe. Report Dictated on Electronically Signed By: Antwan Boyd MD Electronically Signed Date/Time: 01/30/2024 8:05 PM EDT [facility] hereO SYSTEM Patient Name: MIKEL WINSTON : 1945 [facility] [id number] Exam Date/Time: 01/30/2024 18:22 Procedure: XR CHEST [...] mid hemithorax. The costophrenic angles are obscured. [facility] hereO SYSTEM Antwan Boyd MD - 01/30/2024 Patient Name: MIKEL WINSTON : 1945 [id number] Exam Date/Time: 01/30/2024 18:22 Procedure: XR CHEST [...] MD Electronically Signed Date/Time: 01/30/2024 8:05 PM T [facility] Radiology Study observation (narrative) [facility] Lines, tubes, and devices: None. Lungs and [...] Electronically Signed Date/Time: 01/30/2024 8:29 AM EDT [facility] hereO SYSTEM Patient Name: MIKEL WNISTON : 1945 Exam Date/Time: 01/30/2024 00:45 Procedure: XR CHEST 1 VIEW Ordering Provider: MORILLO DANIEL Reason For Exam: sob EXAMINATION: CHEST RADIOGRAPH (SINGLE VIEW AP OR PA) Clinical History: sob Comparison: Radiograph 11/17/2022 RESULT: See impression [facility] Blaise Winters MD - 01/30/2024 Patient Name: MIKEL WINSTON : 1945 [facility]#: [id number] Exam Date/Time: 01/30/2024 00:45 Procedure: XR CHEST [...] Electronically Signed Date/Time: 01/30/2024 8:29 AM EDT [facility] (narrative) [facility]th XR Chest Single viewOrdered By: Antwan Boyd on 01-30-2024 [facility] Work Phone: CBC W Auto Differential pane l (Bld)Ordered By: Ovidio Carson on 01-29-2024 Erythrocyte distribution width (RBC) [Ratio] 13.7 % 11.5 - 15.0 % [facility] [employer] Hematocrit (Bld) [Volume fraction] 32.5 % Low 35.0 - 47.0 % [facility] Hemoglobin (Bld) [Mass/Vol] 10.5 g/dL Low 11.7 - 16.0 g/dL [facility] Interpretation and review of laboratory results Abnormal [facility] th IPF 4 [facility] MCH (RBC) [Entitic mass] 31.7 pg 26. 0 - 34.0 pg [facility] MCHC (RBC) [Mass/Vol] 32.3 % 30.5 - 36.0 % [facility] MCV (RBC) [Entitic vol] 98.2 fL 77.0 - 99.0 fL [facility] Platelet mean volume (Bld) [Entitic vol] 11.6 fL 9.0 - 12.7 fL [facility] Platelets (Bld) [#/Vol] 89 10*3/uL Low 140 - 440 10*3/uL [facility] RBC (Bld) [#/Vol] 3.31 10*6/uL Low 3.80 - 5.2 0 10*6/uL [facility] WBC (Bld) [#/Vol] 9.0 10*3/uL 3.6 - 10.7 10*3/uL [facility] Comprehensive metabolic 1998 panelon 01-29-2024 Albumin [Mass/Vol] 3.4 g/dL Low 3.5 - 5.0 g/dL [facility] ALP [Catalytic activity/Vol] 73 U/L 38 - 126 U/L [facility] ALT [Catalytic activity/Vol] 22 U/L 0 - 34 U/L [facility] Anion gap [Moles/Vol] 9 mmol/L 3 - 13 mmol/L [facility] AST [Catalytic activity/Vol] 36 U/L 15 - 46 U/L [facility] Bilirubin [Mass/Vol] 1.2 mg/dL 0.2 - 1 .3 mg/dL [facility] Calcium [Mass/Vol] 9.6 mg/dL 8.4 - 10. 4 mg/dL [facility] Chloride [Moles/Vol] 109 mmol/L High 98 - 10 7 mmol/L [facility] CO2 [Moles/Vol] 22 mmol/L 22 - 30 mmol/L [facility] Creatinine [Mass/Vol] 1.68 mg/dL High 0.52 - 1.04 mg/dL [facility] GFR/1.73 sq M.predicted MDRD (S/P/Bld) [Vol rate/Area] 31.0 mL/min/{1.73_m2} Low - PINF [facility] Comment on above: Calculation based on the Chronic Kidney Disease Epidemiology Collaboration (CKD-EPI) equation refit without adjustment for race Glucose [Mass/Vol] 128 mg/dL High 70 - 100 mg/dL [facility] Interpretation and review of laboratory results Abnormal [facility] Potassium [Moles/Vol] 3.9 mmol/L 3.5 - 5.1 mmol/L [facility] Protein [Mass/Vol] 6.5 g/dL 6.3 - 8.2 g/dL [facility] Sodium [Moles/Vol] 140 mmol/L 135 - 145 mmol/L [facility] Urea nitrogen [Mass/Vol] 30 mg/dL High 7 - 17 mg/dL [facility] Laboratory - Chemistry and C hemistry - challengeon 01-29-2024 Glucose [Mass/Vol] 168 mg/dL High 70 - 100 mg/dL [facility] Glucose [Mass/Vol] 148 mg/dL High 70 - 100 mg/dL [facility] Sodium (24H U) [Mass/Vol] 77 mmol/L 30 - 90 mmol/L [facility] Chloride (U) [Moles/Vol] 61 mmol/L 19 - 209 mmol/L [facility] Glucose [Mass/Vol] 183 mg/dL High 70 - 100 mg/dL [facility] Glucose [Mass/Vol] 125 mg/dL High 70 - 100 mg/dL [facility] Laboratory - Drug toxicology on 01-29-2024 Vancomycin [Mass/Vol] 16.4 ug/mL 15.0 - 20.0 ug/mL [facility] Laboratory - Hematology and Cell countson 01-29-2024 Basophils (Bld) [#/Vol] 0.1 10*3/uL 0.0 - 0.2 10*3/uL [facility] Basophils/100 WBC (Bld) 1 % 0 - 2 % [facility] Eosinophils (Bld) [#/Vol] 0.1 10*3/uL 0. 0 - 0.5 10*3/uL [facility] Eosinophils/100 WBC (Bld) 1 % 0 - 6 % [facility] Lymphocytes (Bld) [#/Vol] 0.7 10*3/uL Low 1. 0 - 4.3 10*3/uL [facility] Lymphocytes/100 WBC (Bld) 8 % Low 15 - 45 % [facility] Monocytes (Bld) [#/Vol] 0.4 10*3/uL 0.0 - 0.9 10*3/uL [facility] Monocytes/100 WBC (Bld) 4 % Low 5 - 13 % [facility] Neutrophils (Bld) [#/Vol] 7.7 10*3/uL High 1. 8 - 7.5 10*3/uL [facility] [facility] RBC morphology finding Nom (Bld) Normal [facility] Segmented neutrophils/100 WBC (Bld) 86 % High 38 - 82 % [facility] Laboratory - Urinalysison Protein (U) [Mass/Vol] 32 mg/dL High 0 - 1 2 mg/dL [facility] Microalbumin/Creatinine rati o panel (U)on 01-29-2024 Albumin DL <= 20 mg/L (U) [Mass/Vol] 74.3 mg/L High 0.0 - 29.9 mg/L [facility] Albumin/Creatinine DL <= 20 mg/L (U) [Mass ratio] 159.1 mg/g High 0.0 - 29.9 mg/g [facility] CREATININE, URINE 46.7 mg/dL No Range [facility] Interpretation and review of laboratory results Abnormal [facility] Microalbumin concentrations <30 are considered normal, 30-300 are considered microalbuminuria (or risk of diabetic nephropathy), and >300 are considered clinical albuminuria (clinical nephropathy). Diabetes Care,27, Supplement 1, S27-22, 2004 [facility] No Panel Informationon 01-28 Interpretation and review of laboratory results Abnormal [facility] Performed by: [facility], [address] [place] [address] CLIA ID: [id number] [facility] Interpretation and review of laboratory results Abnormal [facility] Performed by: [facility], [address] [place] [address] CLIA ID: [id number] [facility] Interpretation and review of laboratory results Normal [facility] Interpretation and review of laboratory results Abnormal [facility] Interpretation and review of laboratory results Abnormal [facility] Performed by: [facility], [address] [place] [address] CLIA ID: [id number] [facility] Interpretation and review of laboratory results Abnormal [facility] Performed by: [facility], [address] [place] [address] CLIA ID: [id number] [facility] Atypical Lymphocytes Manual [facility] Bands Manual [facility] Basophils Manual 1 [facility] Blasts Manual [facility] Eosinophils Manual 1 0 - 1 [facility] Interpretation and review of laboratory results Abnormal [facility] Lymphocytes Manual 8 [facility] Metamyelocytes Manual [facility] Monocytes Manual 4 [facility] alth Myelocytes Manual [facility] ealth Neutrophils Manual 86 [facility] Promyelocytes Manual [facility] Unclassified Cells, Manual [facility] Interpretation and review of laboratory results Normal [facility] Sinus rhythm Borderline prolonged CO interval 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 ST elevation secondary to IVCD Electronically Signed On 01-29-2024 05:57:24 EDT by Giancarlo Lau, DO - 01/29/2024 IMPRESSION: Sinus rhythm Borderline prolonged CO interval 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 ST elevation secondary to IVCD Electronically Signed On 01-29-2024 05:57:24 EDT by Giancarlo Queen [facility] Radiology Study observation (narrative) [facility] Radiology Study observation (narrative) [facility] Radiology Study observation (narrative) [facility] Radiology Study observation (narrative) [facility] No Panel InformationOrdered By: Giancarlo Queen on 01-29-2024 P [place] 66 degrees [facility] [employer] Work Phone: CO Interval 207 ms [facility] Work Phone: QRS [place] -65 degrees [facility] Work Phone: QRSD Interval 172 ms [facility] [employer] Work Phone: QT Interval 437 ms [facility] [employer] Work Phone: QTC Interval 540 ms [facility] Work Phone: T Wave [place] 98 degrees [facility] [employer] Work Phone: [facility] Work Phone: Vital signsOrdered By: Giovanny Queen on 01-29-2024 Heart rate 91 /min bpm [facility] [employer] Work Phone: Basic metabolic 1998 panelon 01-28-2024 Anion gap [Moles/Vol] 13 mmol/L 3 - 13 mmol/L [facility] Calcium [Mass/Vol] 10.2 mg/dL 8.4 - 10. 4 mg/dL [facility] Chloride [Moles/Vol] 107 mmol/L 98 - 10 7 mmol/L [facility] CO2 [Moles/Vol] 21 mmol/L Low 22 - 30 mmol/L [facility] Creatinine [Mass/Vol] 1.70 mg/dL High 0.52 - 1.04 mg/dL [facility] GFR/1.73 sq M.predicted MDRD (S/P/Bld) [Vol rate/Area] 30.6 mL/min/{1.73_m2} Low - PINF [facility] Comment on above: Calculation based on the Chronic Kidney Disease Epidemiology Collaboration (CKD-EPI) equation refit without adjustment for race Glucose [Mass/Vol] 122 mg/dL High 70 - 100 mg/dL [facility] Interpretation and review of laboratory results Abnormal [facility] Potassium [Moles/Vol] 4.3 mmol/L 3.5 - 5.1 mmol/L [facility] Sodium [Moles/Vol] 141 mmol/L 135 - 145 mmol/L [facility] Urea nitrogen [Mass/Vol] 33 mg/dL High 7 - 17 mg/dL [facility] CBC W Auto Differential pane l (Bld)on 01-28-2024 Basophils (Bld) [#/Vol] 0.0 10*3/uL 0.0 - 0.2 10*3/uL [facility] Basophils/100 WBC (Bld) 0.4 % 0.0 - 2.0 % [facility] Eosinophils (Bld) [#/Vol] 0.1 10*3/uL 0. 0 - 0.5 10*3/uL [facility] Eosinophils/100 WBC (Bld) 0.7 % 0.0 - 6.0 % [facility] Erythrocyte distribution width (RBC) [Ratio] 13.6 % 11.5 - 15.0 % [facility] Hematocrit (Bld) [Volume fraction] 35.1 % 35.0 - 47.0 % [facility] Hemoglobin (Bld) [Mass/Vol] 11.8 g/dL 11.7 - 16.0 g/dL [facility] Immature granulocytes (Bld) [#/Vol] 0.1 10*3/uL High NINF - 0.1 10*3/uL [facility] Immature granulocytes/100 WBC (Bld) 0.6 % 0.0 - 2.0 % [facility] Interpretation and review of laboratory results Abnormal [facility] Lymphocytes (Bld) [#/Vol] 0.7 10*3/uL Low 1. 0 - 4.3 10*3/uL [facility] Lymphocytes/100 WBC (Bld) 6.3 % Low 15 .0 - 45.0 % [facility] MCH (RBC) [Entitic mass] 32.5 pg 26. 0 - 34.0 pg [facility] MCHC (RBC) [Mass/Vol] 33.6 % 30.5 - 36.0 % [facility] MCV (RBC) [Entitic vol] 96.7 fL 77.0 - 99.0 fL [facility] Monocytes (Bld) [#/Vol] 1.3 10*3/uL High 0.0 - 0.9 10*3/uL [facility] Monocytes/100 WBC (Bld) 12.1 % 5.0 - 13.0 % [facility] Neutrophils (Bld) [#/Vol] 8.6 10*3/uL High 1. 8 - 7.5 10*3/uL [facility] Neutrophils/100 WBC (Bld) 79.9 % 38 .0 - 82.0 % [facility] Nucleated RBC/100 WBC (Bld) [Ratio] 0.0 % [facility] Platelet mean volume (Bld) [Entitic vol] 12.2 fL 9.0 - 12.7 fL [facility] Platelets (Bld) [#/Vol] 105 10*3/uL Low 140 - 440 10*3/uL [facility] RBC (Bld) [#/Vol] 3.63 10*6/uL Low 3.80 - 5.2 0 10*6/uL [facility] WBC (Bld) [#/Vol] 10.8 10*3/uL High 3.6 - 10.7 10*3/uL [facility] CRP [Mass/Vol]on 01-28-2024 Interpretation and review of laboratory results Normal [facility] CT Head WO contraston [address] evidence of an acute intracranial abnormality. Chronic parenchymal changes as described. Report Dictated on Electronically Signed By: Blaise Winters MD Electronically Signed Date/Time: 01/28/2024 6:29 PM [facility] hereO SYSTEM Patient Name: MIKEL WINSTON : 1945 [...] orbits and extracranial soft tissues are unremarkable. [facility] Blaise Winters MD - 01/28/2024 Patient [...] Electronically Signed Date/Time: 01/28/2024 6:29 PM EDT [facility] Radiology Study observation (narrative) [facility] CT Head WO contrastOrdered B y: Blaise Winters on 01-28-2024 [facility] Work Phone: Free T4 [Mass/Vol]on 024 Free T4 Dialysis [Mass/Vol] 1.51 ng/dL 0.78 - 2.19 ng/dL [facility] Laboratory - Chemistry and C hemistry - challengeon 01-28-2024 Troponin I.cardiac [Mass/Vol] 0.018 ng/mL [facility] - 0.034 ng/mL [facility] Lactate [Moles/Vol] 1.4 mmol/L 0.7 - 2. 0 mmol/L [facility] Glucose [Mass/Vol] 135 mg/dL High 70 - 100 mg/dL [facility] Average glucose Estimated from glycated hemoglobin (Bld) [Mass/Vol] 128 mg/dL [facility] CRP [Mass/Vol] mg/L [facility] - 10.0 mg/L [facility] TSH Qn 1.503 m[IU]/L [facility] Free T3 [Mass/Vol] 3.08 pg/mL 2.77 - 5. 27 pg/mL [facility] Troponin I.cardiac [Mass/Vol] 0.015 ng/mL [facility] ng/mL [facility] Laboratory - Hematology and Cell countson 01-28-2024 HbA1c (Bld) [Mass fraction] 6.1 % High [facility] - 5.7 % [facility] Comment on above: Normal less than 5.7 % Prediabetes 5.7% to 6.4% Diabetes 6.5% or higher --HgbA1C levels may not be accurate in patients who have renal disease, received recent blood transfusions, are anemic, or who have dyshemoglobinemia. Natriuretic peptide B [Mass/ Vol]on 01-28-2024 Interpretation and review of laboratory results Abnormal [facility] Natriuretic peptide B (Bld) [Mass/Vol] 1480 pg/mL High <20 - 300 [facility] No Panel Informationon 01-27 Interpretation and review of laboratory results Normal [facility] Interpretation and review of laboratory results Abnormal [facility] Performed by: [facility], [address] [place] [id number] CLIA ID: [id number] [facility] Interpretation and review of laboratory results Abnormal [facility] Interpretation and review of laboratory results Normal [facility] Radiology Study observation (narrative) [facility] alth TSH Qnon 01-28-2024 Interpretation and review of laboratory results Normal [facility] Troponin I.cardiac [Mass/Vol ]on 01-28-2024 Interpretation and review of laboratory results Normal [facility] Patients with high levels of Biotin oral intake (ie >5 mg/day) may have falsely decreased Troponin levels. [facility] Interpretation and review of laboratory results Normal [facility] Patients with high levels of Biotin oral intake (ie >5 mg/day) may have falsely decreased Troponin levels. [facility] Urinalysis complete panel (U )Ordered By: Víctor Loza on 01-28-2024 Bacteria LM.HPF (Urine sed) [#/Area] Many Abnormal Negative /HPF [facility] Bilirubin Ql (U) Negative Negative mg/dL [facility] Clarity (U) Turbid Abnormal Clear [facility] Color (U) Yellow Lt. Yellow [facility] Epithelial cells.squamous LM.HPF (Urine sed) [#/Area] 3-5 [facility] Glucose Ql (U) Normal Normal (<70) mg/dL [facility] Hemoglobin Ql (U) 0.06 mg/dL Abnormal Negative [facility] Interpretation and review of laboratory results Abnormal [facility] Ketones (U) [Mass/Vol] Negative Negat balbina mg/dL [facility] Leukocyte clumps LM.HPF (Urine sed) [#/Area] Rare Abnormal Negative /HPF [facility] Leukocyte esterase Test strip Ql (U) 250 Abnormal Negative Yomi/uL [facility] Mucus LM.HPF (Urine sed) [#/Area] Few Negative /LPF [facility] Nitrite Ql (U) Negative Negative [facility] pH (U) 6.0 [pH] 5.0 - 8.0 pH [facility] Protein (U) [Mass/Vol] 50 mg/dL Abnormal Negative [facility] RBC LM.HPF (Urine sed) [#/Area] 3-5 Abnormal [facility] Specific gravity (U) [Rel density] 1.015 1.005 - 1.030 [facility] Urobilinogen (U) [Mass/Vol] 2 mg/dL Abnormal Normal (0-1) [facility] WBC LM.HPF (Urine sed) [#/Area] 26-50 Abnormal [facility] US Retroperitoneumon 01-25-2 024 Radiology Study observation (narrative) [facility] CNOVon 01-06-2024 CNOV Office Visit (FPDOYL) MIKEL WINSTON ([id number]) 1945 F Date Time Provider Department 01/06/24 1:00 PM KOMAL COHN FPDOYL During your visit today, we recorded the following information about you: Temperature Pulse Blood pressure Weight 98 degrees 61/minute 134/70 93.4 kg Height 1.626 m Melanie Ellsworth 05/29/2024 4:07 PM Addendum [facility] [place] Komal Cohn DO [address] [place] [address] Date of Evaluation: 01/06/2024 Patient Name: Mikel [...] history is provided by the patient. No english language learner tutor was used. Diabetes She presents for her [...] for 7 (more content not included)... [facility] (JULIENYL) MIKEL WINSTON ([id number]) 1945 F Date Time Provider Department 01/06/24 KOMAL COHN During your visit today, we recorded the following information about you: Sylvia Monroy 01/06/2024 2:51 PM Signed Consult to nephrology CKD chronic kidney disease stage 4 GFR 15-29 ml/min Confirm [id number] Sylvia Monroy Allergies As of Date: 01/06/2024 Noted Allergy Reaction CODEINE 02/24/2016 4 - Hives 2 - Rash CODEINE SULFATE 06/13/2018 16 - Unknown Date Reviewed: 01/06/2024 Reviewed by: Arnel Govea LPN - Fully Assessed Reason for Visit: Consult [502] Cmt: Consult to nephrology, ckd chronic kidney disease state 4 gfr 15-29 confirm [id number] Prescriptions as of 01/06/2024 - atenolol (TENORMIN) [...] failure, unspecified HF chroni*12/01/2022 Angina at rest ([facility]) [I20.89] 12/01/2022 Obesity, Class I, BMI 30-34.9 [E66.9] 12/01/2022 Systolic murmur [R01.1] 12/26/2022 Platelets decreased ([facility]) [D69.6] 12/26/2022 Depression [F32.A] 12/11/2023 Encounter Status:Closed by SYLVIA MONROY on 01/06/24 [facility] CNPN Telephone (FPDOYL) MIKEL WINSTON ([id number]) 1945 F Date Time Provider Department 01/06/24 KOMAL COHN FPDOYL During your visit today, we recorded the following information about you: Sylvia Monroy 01/06/2024 2:50 PM Signed Consult to ophthalmology Screening for diabetic retinopathy Confirm [id number] Sylvia Monroy Allergies As of Date: 01/06/2024 Noted Allergy Reaction CODEINE 02/24/2016 4 - Hives 2 - Rash CODEINE SULFATE 06/13/2018 16 - Unknown Date Reviewed: 01/06/2024 Reviewed by: Arnel Govea LPN - Fully Assessed Reason for Visit: Consult [502] Cmt: Consult to ophthalmology, screening for diabetic retinopathy confirm [id number] Prescriptions as of 01/06/2024 - atenolol (TENORMIN) [...] Status:Closed by SYLVIA MONROY on 01/06/24 Normal [facility] HEMOGLOBIN A1C (POC)on 01-05 HbA1c (Bld) [Mass fraction] 6.5 % Abnormal 4.3 - 5.6 % [facility] Comment on above: Location:[facility], [address] [place] [address], [facility] Point of care (POC) Hemoglobin A1c [...] specific diabetes management situations: The POC device marble worker provides a normal range of 4.2% to 6.5% for the HGBA1C POC test. However, the [place] [employer] guidelines indicate that patients with [...] Abnormal [facility] 12-16-2023 TAB Telephone (JULIENYL) MIKEL WINSTON ([id number]) 1945 F Date Time Provider Department 12/16/23 [...] time. Will attempt to contact later. 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 No order [...] Encounter Status:Closed by ARNEL GOVEA on 01/04/24 Normal [facility] CNOVon 12-07-2023 CNOV Office Visit (FPDOYL) MIKEL WINSTON ([id number]) 1945 F Date Time Provider Department 12/07/23 10:30 AM KOMAL COHN FPDOYL During your visit today, we recorded the following information about you: Temperature Pulse Blood pressure Weight 98.2 degrees 80/minute 118/60 94.8 kg Height 1.626 m Komal Cohn DO 12/11/2023 10:53 PM Signed [facility] [address] [place] [address] Date of Evaluation: 12/07/2023 Patient Name: Mikel Winston : 1945 Chief Complaint: Patient presents with: Urinary Frequency: Burning with urination Confusion Leg Edema: Right lower leg, redness, blisters Nursing Intake: There are no exam notes on file for this visit. Subjective Ms. Winston is a 78 year old female who presents with the following complaint(s): The history is provided by the patient. No english language learner tutor was used. UTI This is a new [...] citalopram (CELEX (more content not included)... Normal [facility] UA DIP, URINE (POC)on 2023 BILIRUBIN UA (POCT) Negative Negative [facility] CLARITY UA (POCT) Slightly Cloudy [facility] COLOR UA (POCT) Stephanie [facility] GLUCOSE UA (POCT) Negative Negative mg/dL [facility] Hemoglobin Ql (U) Small Abnormal Negative [facility] Interpretation and review of laboratory results Abnormal [facility] KETONE UA (POCT) Negative Negative mg/dL [facility] LEUKOCYTES UA (POCT) Small Abnormal Negative [facility] NITRITE UA (POCT) Positive Abnormal Negative [facility] PH UA (POCT) 5.5 4.5 - 8.0 [facility] Protein Ql (U) 100 mg/dL Abnormal Negative [facility] SPECIFIC GRAVITY UA (POCT) >=1.030 1.005 - 1.030 [facility] UROBILINOGEN UA (POCT) 1.0 Lillian l E.U./dL [facility] Location:[facility], [address] [place] [address], [address] [place] [address] POINT OF CARE [facility] URINE CULTUREon 07-01-2023 Bacteria identified Cx Nom (U) >=100,000 CFU/ml Proteus mirabilis Abnormal [facility] HEMOGLOBIN A1C (POC)on 06-27 HbA1c (Bld) [Mass fraction] 7.2 % Abnormal 4.2 - 5.6 % [facility] UA DIP, URINE (POC)on 2022 BILIRUBIN UA (POCT) Negative Negative [facility] CLARITY UA (POCT) Clear [facility] COLOR UA (POCT) Yellow [facility] GLUCOSE UA (POCT) Negative Negative mg/dL [facility] Hemoglobin Ql (U) Trace-intact Abnormal Negative [facility] KETONE UA (POCT) Negative Negative mg/dL [facility] LEUKOCYTES UA (POCT) Large Abnormal Negative [facility] NITRITE UA (POCT) Negative Negative [facility] PH UA (POCT) 6.0 4.5 - 8.0 [facility] Protein Ql (U) Trace Abnormal Negative mg/dL [facility] SPECIFIC GRAVITY UA (POCT) 1.020 1.005 - 1.030 [facility] UROBILINOGEN UA (POCT) 0.2 E.U./dL Lillian l E.U./dL [facility] URINE CULTUREon 06-27-2023 Bacteria identified Cx Nom (U) Invalid Interpretation Code [facility] No Panel Informationon 03-07 No evidence of [...] compressibility. Doppler flow was phasic and spontaneous. 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 During the study longitudinal and transverse views were obtained. Pulsed wave doppler was performed. The exam was performed with the patient in the supine position. Overall the study quality was good. CV CPACS UA DIP, URINE (POC)on 2022 BILIRUBIN UA (POCT) Negative Negative [facility] CLARITY UA (POCT) Clear [facility] COLOR UA (POCT) Yellow [facility] GLUCOSE UA (POCT) Negative Negative mg/dL [facility] HEMOGLOBIN/BLOOD UA (POCT) Trace-lysed Abnormal Negative [facility] KETONE UA (POCT) Negative Negative mg/dL [facility] LEUKOCYTES UA (POCT) Negative Negative [facility] NITRITE UA (POCT) Negative Negative [facility] PH UA (POCT) 5.5 4.5 - 8.0 [facility] Protein Ql (U) Negative Negative mg/dL [facility] SPECIFIC GRAVITY UA (POCT) <=1.005 Abnormal 1.005 - 1.030 [facility] UROBILINOGEN UA (POCT) 1.0 E.U./dL Lillian l E.U./dL [facility] US Heart TransthoracicOrdere d By: Huy Frederick on 12-08-2022 Ascending Aorta 2.8 cm [facility] Work Phone: [phone] Ascending Aorta Index 1.44 cm/m2 [facility] [employer] Work Phone: [phone] AV Area by Peak Velocity 1.1 cm2 [facility] [employer] Work Phone: [phone] AV Area by VTI 1.1 cm2 [facility] Work Phone: [phone] AV Mean Gradient 21 mmHg [facility] Work Phone: [phone] AV Mean Velocity 2.2 m/s [facility] Work Phone: [phone] AV Peak Gradient 34 mmHg [facility] [employer] Work Phone: [phone] AV Peak Velocity 2.9 m/s [facility] Work Phone: [phone] AV Velocity Ratio 0.28 [facility] Work Phone: [phone] AV VTI 77.5 cm [facility] Work Phone: [phone] VINH/BSA Peak Velocity 0.6 cm2/m2 [facility] [employer] Work Phone: [phone] VINH/BSA VTI 0.6 cm2/m2 [facility] [employer] Work Phone: [phone] EF Physician 45 % [facility] Work Phone: [phone] Fractional Shortening 2D 25 % 28 - 44 % [facility] [employer] Work Phone: [phone] Interpretation and review of laboratory results Abnormal [facility] Work Phone: [phone] IVSd 1.1 cm Abnormal 0.6 - 0.9 cm [facility] Work Phone: LA Diameter 4.6 cm [facility] Work Phone: [phone] LA Size Index 2.37 cm/m2 [facility] Work [facility]: [phone] LA Volume 4C 88 mL Abnormal 22 - 52 mL [facility] Work Phone: [phone] LA Volume Index 4C 45 mL/m2 Abnormal 16 - 34 mL/m2 [facility] Work Phone: [phone] LV EDV A2C 140 mL [facility] Work Phone: [phone] LV EDV A4C 157 mL [facility] Work Phone: [phone] LV EDV BP 152 mL Abnormal 56 - 104 mL [facility] Work Phone: [phone] LV EDV Index A2C 72 mL/m2 [facility] Work Phone: LV EDV Index A4C 81 mL/m2 [facility] Work Phone: [phone] LV EDV Index BP 78 mL/m2 [facility] Work Phone: LV ESV A2C 62 mL [facility] Work Phone: LV ESV A4C 69 mL [facility] Work Phone: LV ESV BP 70 mL Abnormal 19 - 49 mL [facility] Work Phone: LV ESV Index A2C 32 mL/m2 [facility] Work Phone: LV ESV Index A4C 36 mL/m2 [facility] Work Phone: LV ESV Index BP 36 mL/m2 [facility] Work Phone: LV Mass 2D 203.0 g Abnormal 67 - 162 g [facility] [facility] Work Phone: LV Mass 2D Index 104.7 g/m2 Abnormal 43 - 95 g/m2 [facility] Work Phone: LV RWT Ratio 0.64 [facility] Work Phone: LVIDd 4.4 cm 3.9 - 5.3 cm [facility] Work Phone: [phone] LVIDd Index 2.27 cm/m2 [facility] [employer] Work Phone: [phone] LVIDs 3.3 cm [facility] Work Phone: [phone] LVIDs Index 1.70 cm/m2 [employer] Work Phone: [phone] LVOT Area 4.2 cm2 [facility] Work Phone: [phone] LVOT Cardiac Output 5.0 liter/mi nut e [employer] Work Phone: [phone] LVOT Diameter 2.3 cm [facility] Work Phone: [phone] LVOT Mean Gradient 1 mmHg [facility] [employer] Work Phone: [phone] LVOT Peak Gradient 3 mmHg [employer] Work Phone: [phone] LVOT Peak Velocity 0.8 m/s [facility] [employer] Work Phone: [phone] LVOT Stroke Volume Index 43.9 mL/m2 [facility] [employer] Work Phone: [phone] LVOT SV 85.1 ml [employer] Work Phone: [phone] LVOT VTI 20.5 cm [facility] [employer] Work Phone: [phone] LVOT:AV VTI Index 0.26 [facility] Work Phone: [phone] LVPWd 1.4 cm Abnormal 0.6 - 0.9 cm [facility] [employer] Work Phone: [phone] MV A Velocity 0.72 m/s [facility] Work Phone: [phone] MV E Velocity 0.97 m/s [facility] Work Phone: [phone] MV E Wave Deceleration Time 206.7 ms [employer] Work Phone: [phone] MV E/A 1.35 [facility] [employer] Work Phone: [phone] RV Free Wall Peak S' 7 cm/s [facility] [employer] Work Phone: [phone] TAPSE 1.5 cm Abnormal 1.7 cm [facility] Work Phone: [phone] [facility] Work Phone: US Heart Transthoracicon 05- 03-2023 Left Ventricle: Left ventricle size is normal. [...] [Ratio] 13.7 % 11.5 - 14.5 % [facility] [employer] Hematocrit (Bld) [Volume fraction] 28.4 % Low 35.0 - 47.0 % [facility] [employer] Hemoglobin (Bld) [Mass/Vol] 9.3 g/dL Low 11.7 - 16.0 g/dL [facility] [employer] MCH (RBC) [Entitic mass] 31.2 pg 26. 0 - 34.0 pg [facility] MCHC (RBC) [Mass/Vol] 32.9 % 32.0 - 36.0 % [facility] MCV (RBC) [Entitic vol] 95.0 fL 80.0 - 98.0 fL [facility] Nucleated RBC/100 WBC (Bld) [Ratio] 0.0 % [facility] Platelet mean volume (Bld) [Entitic vol] 9.8 fL 7.4 - 12.4 fL [facility] Platelets (Bld) [#/Vol] 79 10*3/uL Low 140 - 440 10*3/uL [facility] RBC (Bld) [#/Vol] 2.99 10*6/uL Low 3.8 - 5.20 10*6/uL [facility] WBC (Bld) [#/Vol] 3.5 10*3/uL Low 3.6 - 10.7 10*3/uL [facility] Comprehensive metabolic 1998 panelon 11-19-2022 Albumin [Mass/Vol] 2.7 g/dL Low 3.5 - 5.0 g/dL [facility] ALP [Catalytic activity/Vol] 121 U/L 38 - 126 U/L [facility] ALT [Catalytic activity/Vol] 21 U/L 0 - 34 U/L [facility] Anion gap [Moles/Vol] 3 mmol/L 3 - 13 mmol/L [facility] AST [Catalytic activity/Vol] 39 U/L 15 - 46 U/L [facility] Bilirubin [Mass/Vol] 0.8 mg/dL 0.2 - 1 .3 mg/dL [facility] Calcium [Mass/Vol] 8.3 mg/dL Low 8.4 - 10. 4 mg/dL [facility] Chloride [Moles/Vol] 111 mmol/L High 98 - 10 7 mmol/L [facility] CO2 [Moles/Vol] 21 mmol/L Low 22 - 30 mmol/L [facility] Creatinine [Mass/Vol] 1.31 mg/dL High 0.52 - 1.04 mg/dL [facility] GFR/1.73 sq M.predicted MDRD (S/P/Bld) [Vol rate/Area] 42.1 mL/min/{1.73_m2} Low - PINF [facility] Comment on above: Calculation based on the Chronic Kidney Disease Epidemiology Collaboration (CKD-EPI) equation refit without adjustment for race Glucose [Mass/Vol] 159 mg/dL High 70 - 100 mg/dL [facility] Interpretation and review of laboratory results Abnormal [facility] Potassium [Moles/Vol] 3.7 mmol/L 3.5 - 5.1 mmol/L [facility] Protein [Mass/Vol] 5.3 g/dL Low 6.3 - 8.2 g/dL [facility] Sodium [Moles/Vol] 135 mmol/L 135 - 145 mmol/L [facility] Urea nitrogen [Mass/Vol] 30 mg/dL High 7 - 17 mg/dL [facility] Laboratory - Chemistry and C hemistry - challengeon 11-19-2022 Glucose [Mass/Vol] 176 mg/dL High 70 - 100 mg/dL [facility] Glucose [Mass/Vol] 117 mg/dL High 70 - 100 mg/dL [facility] Manual differential performe d Ql (Bld)on 11-19-2022 Anisocytosis Ql (Bld) Slight Abnormal (none) [facility] Basophils (Bld) [#/Vol] 0.0 10*3/uL 0.0 - 0.2 10*3/uL [facility] Basophils Manual 1 [facility] alth Basophils/100 WBC (Bld) 1 % 0 - 2 % [facility] Cells Counted Total (Bld) [#] 100 {cells} [facility] Dacrocytes LM Ql (Bld) Rare Abnormal (none) [facility] Eosinophils (Bld) [#/Vol] 0.2 10*3/uL 0. 0 - 0.5 10*3/uL [facility] Eosinophils Manual 5 High 0 - 1 [facility] Eosinophils/100 WBC (Bld) 5 % 1 - 6 % [facility] Leukocyte morphology finding Nom (Bld) Normal [facility] Lymphocytes (Bld) [#/Vol] 0.8 10*3/uL Low 1. 0 - 4.3 10*3/uL [facility] Lymphocytes Manual 22 [facility] Lymphocytes/100 WBC (Bld) 22 % 20 - 40 % [facility] Monocytes (Bld) [#/Vol] 0.5 10*3/uL 0.0 - 0.8 10*3/uL [facility] Monocytes Manual 13 [facility] alth Monocytes/100 WBC (Bld) 13 % High 2 - 10 % [facility] Neutrophils (Bld) [#/Vol] 2.1 10*3/uL 1. 8 - 7.0 10*3/uL [facility] Neutrophils Manual 59 [facility] Ovalocytes LM Ql (Bld) Slight Abnormal (none) [facility] Platelet morphology finding Nom (Bld) Normal [facility] Segmented neutrophils/100 WBC (Bld) 59 % 40 - 80 % [facility] WBC corrected for nucl RBC (Bld) [#/Vol] 3.50 10*3/uL Low 3.60 - 10.70 10*3/uL [facility] No Panel Informationon 11-19 Interpretation and review of laboratory results Abnormal [facility] Performed by: [facility], [address] [place] [address] CLIA ID: [id number] [facility] Interpretation and review of laboratory results Abnormal [facility] Performed by: [facility], [address] [place] [id number] CLIA ID: [id number] [facility] Interpretation and review of laboratory results Abnormal [facility] Basic metabolic 1998 panelon 11-18-2022 Anion gap [Moles/Vol] 6 mmol/L 3 - 13 mmol/L [facility] Calcium [Mass/Vol] 8.8 mg/dL 8.4 - 10. 4 mg/dL [facility] Chloride [Moles/Vol] 112 mmol/L High 98 - 10 7 mmol/L [facility] CO2 [Moles/Vol] 19 mmol/L Low 22 - 30 mmol/L [facility] Creatinine [Mass/Vol] 1.38 mg/dL High 0.52 - 1.04 mg/dL [facility] GFR/1.73 sq M.predicted MDRD (S/P/Bld) [Vol rate/Area] 39.5 mL/min/{1.73_m2} Low - PINF [facility] Comment on above: Calculation based on the Chronic Kidney Disease Epidemiology Collaboration (CKD-EPI) equation refit without adjustment for race Glucose [Mass/Vol] 129 mg/dL High 70 - 100 mg/dL [facility] Interpretation and review of laboratory results Abnormal [facility] Potassium [Moles/Vol] 3.8 mmol/L 3.5 - 5.1 mmol/L [facility] Sodium [Moles/Vol] 138 mmol/L 135 - 145 mmol/L [facility] Urea nitrogen [Mass/Vol] 35 mg/dL High 7 - 17 mg/dL [facility] Slightly Hemolyzed [facility] CBC W Auto Differential pane l (Bld)on 11-18-2022 Basophils (Bld) [#/Vol] 0.0 10*3/uL 0.0 - 0.2 10*3/uL [facility] Basophils/100 WBC (Bld) 0.7 % 0.0 - 2.0 % [facility] Eosinophils (Bld) [#/Vol] 0.1 10*3/uL 0. 0 - 0.5 10*3/uL [facility] Eosinophils/100 WBC (Bld) 2.5 % 1.0 - 6.0 % [facility] Erythrocyte distribution width (RBC) [Ratio] 13.9 % 11.5 - 14.5 % [facility] Hematocrit (Bld) [Volume fraction] 31.2 % Low 35.0 - 47.0 % [facility] Hemoglobin (Bld) [Mass/Vol] 10.4 g/dL Low 11.7 - 16.0 g/dL [facility] Interpretation and review of laboratory results Abnormal [facility] th Lymphocytes (Bld) [#/Vol] 0.8 10*3/uL Low 1. 0 - 4.3 10*3/uL [facility] Lymphocytes/100 WBC (Bld) 21.2 % 20 .0 - 40.0 % [facility] MCH (RBC) [Entitic mass] 31.7 pg 26. 0 - 34.0 pg [facility] MCHC (RBC) [Mass/Vol] 33.2 % 32.0 - 36.0 % [facility] MCV (RBC) [Entitic vol] 95.5 fL 80.0 - 98.0 fL [facility] Monocytes (Bld) [#/Vol] 0.6 10*3/uL 0.0 - 0.8 10*3/uL [facility] Monocytes/100 WBC (Bld) 16.3 % High 2.0 - 10.0 % [facility] Neutrophils (Bld) [#/Vol] 2.2 10*3/uL 1. 8 - 7.0 10*3/uL [facility] Neutrophils/100 WBC (Bld) 59.3 % 40 .0 - 80.0 % [facility] Nucleated RBC/100 WBC (Bld) [Ratio] 0.1 % [facility] Platelet mean volume (Bld) [Entitic vol] 10.3 fL 7.4 - 12.4 fL [facility] Platelets (Bld) [#/Vol] 89 10*3/uL Low 140 - 440 10*3/uL [facility] RBC (Bld) [#/Vol] 3.27 10*6/uL Low 3.8 - 5.20 10*6/uL [facility] WBC (Bld) [#/Vol] 3.6 10*3/uL 3.6 - 10.7 10*3/uL [facility] CBC W Auto Differential pane l (Bld)Ordered By: Ovidio Carson on 11-18-2022 Basophils (Bld) [#/Vol] 0.0 10*3/uL 0.0 - 0.2 10*3/uL [facility] Basophils/100 WBC (Bld) 0.5 % 0.0 - 2.0 % [facility] Eosinophils (Bld) [#/Vol] 0.0 10*3/uL 0. 0 - 0.5 10*3/uL [facility] Eosinophils/100 WBC (Bld) 0.9 % Low 1.0 - 6.0 % [facility] Erythrocyte distribution width (RBC) [Ratio] 13.7 % 11.5 - 14.5 % [facility] Hematocrit (Bld) [Volume fraction] 33.2 % Low 35.0 - 47.0 % [facility] Hemoglobin (Bld) [Mass/Vol] 11.2 g/dL Low 11.7 - 16.0 g/dL [facility] Interpretation and review of laboratory results Abnormal [facility] th Lymphocytes (Bld) [#/Vol] 0.7 10*3/uL Low 1. 0 - 4.3 10*3/uL [facility] Lymphocytes/100 WBC (Bld) 15.0 % Low 20 .0 - 40.0 % [facility] MCH (RBC) [Entitic mass] 31.6 pg 26. 0 - 34.0 pg [facility] MCHC (RBC) [Mass/Vol] 33.7 % 32.0 - 36.0 % [facility] MCV (RBC) [Entitic vol] 93.8 fL 80.0 - 98.0 fL [facility] Monocytes (Bld) [#/Vol] 0.7 10*3/uL 0.0 - 0.8 10*3/uL [facility] Monocytes/100 WBC (Bld) 15.2 % High 2.0 - 10.0 % [facility] Neutrophils (Bld) [#/Vol] 3.0 10*3/uL 1. 8 - 7.0 10*3/uL [facility] Neutrophils/100 WBC (Bld) 68.4 % 40 .0 - 80.0 % [facility] Nucleated RBC/100 WBC (Bld) [Ratio] 0.1 % [facility] Platelet mean volume (Bld) [Entitic vol] 9.7 fL 7.4 - 12.4 fL [facility] Platelets (Bld) [#/Vol] 92 10*3/uL Low 140 - 440 10*3/uL [facility] RBC (Bld) [#/Vol] 3.54 10*6/uL Low 3.8 - 5.20 10*6/uL [facility] WBC (Bld) [#/Vol] 4.4 10*3/uL 3.6 - 10.7 10*3/uL [facility] COVID-19, Flu A/B, and RSV C omboon 11-18-2022 Interpretation and review of laboratory results Normal [facility] Comprehensive metabolic 1998 panelon 11-18-2022 Albumin [Mass/Vol] 3.7 g/dL 3.5 - 5.0 g/dL [facility] ALP [Catalytic activity/Vol] 135 U/L High 38 - 126 U/L [facility] ALT [Catalytic activity/Vol] 29 U/L 0 - 34 U/L [facility] Anion gap [Moles/Vol] 6 mmol/L 3 - 13 mmol/L [facility] AST [Catalytic activity/Vol] 56 U/L High 15 - 46 U/L [facility] Bilirubin [Mass/Vol] 1.1 mg/dL 0.2 - 1 .3 mg/dL [facility] Calcium [Mass/Vol] 9.4 mg/dL 8.4 - 10. 4 mg/dL [facility] Chloride [Moles/Vol] 109 mmol/L High 98 - 10 7 mmol/L [facility] CO2 [Moles/Vol] 22 mmol/L 22 - 30 mmol/L [facility] Creatinine [Mass/Vol] 1.56 mg/dL High 0.52 - 1.04 mg/dL [facility] GFR/1.73 sq M.predicted MDRD (S/P/Bld) [Vol rate/Area] 34.1 mL/min/{1.73_m2} Low - PINF [facility] Comment on above: Calculation based on the Chronic Kidney Disease Epidemiology Collaboration (CKD-EPI) equation refit without adjustment for race Glucose [Mass/Vol] 162 mg/dL High 70 - 100 mg/dL [facility] Interpretation and review of laboratory results Abnormal [facility] Potassium [Moles/Vol] 4.1 mmol/L 3.5 - 5.1 mmol/L [facility] Protein [Mass/Vol] 7.0 g/dL 6.3 - 8.2 g/dL [facility] Sodium [Moles/Vol] 137 mmol/L 135 - 145 mmol/L [facility] Urea nitrogen [Mass/Vol] 38 mg/dL High 7 - 17 mg/dL [facility] Laboratory - Chemistry and C hemistry - challengeon 11-18-2022 Glucose [Mass/Vol] 172 mg/dL High 70 - 100 mg/dL [facility] Glucose [Mass/Vol] 153 mg/dL High 70 - 100 mg/dL [facility] Glucose [Mass/Vol] 126 mg/dL High 70 - 100 mg/dL [facility] Lactate [Moles/Vol] 1.2 mmol/L 0.7 - 2. 0 mmol/L [facility] Laboratory - Microbiology an d Antimicrobial susceptibilityon 11-18-2022 FLUAV RNA HUGO+probe Ql (Resp) Not detected Not Detected [facility] FLUBV RNA HUGO+probe Ql (Resp) Not detected Not Detected [facility] RSV RNA HUGO+probe Ql (Resp) Not detected Not Detected [facility] SARS-CoV-2 (COVID-19) RNA HUGO+probe Ql (Resp) Not detected Not Detected [facility] SARS-CoV-2 (COVID-19) RNA HUGO+probe Ql (Unsp spec) Methodology: real-time, RT-PCR The SARS-CoV-2, Flu A/B, and RSV Combo assay is intended for in vitro diagnostic use under the FDA Emergency Use Authorization (EUA). This test has not been FDA cleared or approved. In compliance with this authorization, please visit www.fda.gov/media/ 6650/download or www.fda.gov/media/ 866/download to access the applicable information sheets. [facility] [employer] No Panel Informationon 11-18 Interpretation and review of laboratory results Abnormal [facility]formed by: [facility], [address] [place] [address] CLIA ID: [id number] [facility] Interpretation and review of laboratory results Abnormal [facility] Performed by: [facility], [address] [place] [address] CLIA ID: [id number] [facility] Interpretation and review of laboratory results Abnormal [facility] Performed by: [facility], [address] [place] [address] CLIA ID: [id number] [facility] Interpretation and review of laboratory results Normal [facility] Laboratory - Chemistry and C hemistry - challengeon 11-17-2022 Glucose [Mass/Vol] 203 mg/dL High 70 - 100 mg/dL [facility] No Panel Informationon 11-17 Interpretation and review of laboratory results Abnormal [facility] Performed by: [facility], [address] [place] [address] CLIA ID: [id number] [facility] Urinalysis complete panel (U )Ordered By: Kyung Frederick on 11-17-2022 Bacteria LM.HPF (Urine sed) [#/Area] Moderate Abnormal Negative /HPF [facility] Bilirubin Ql (U) Negative Negative mg/dL [facility] [employer] Clarity (U) Clear Clear [facility] Color (U) Yellow Lt. Yellow [facility] [employer] Epithelial cells.squamous LM.HPF (Urine sed) [#/Area] 3-5 [facility] Glucose Ql (U) 200 mg/dL Abnormal Normal (<70) [facility] Hemoglobin Ql (U) 0.06 mg/dL Abnormal Negative [facility] Interpretation and review of laboratory results Abnormal [facility] Ketones (U) [Mass/Vol] Negative Negat balbina mg/dL [facility] Leukocyte esterase Test strip Ql (U) Negative Negative Yomi/uL [facility] Mucus LM.HPF (Urine sed) [#/Area] Few Negative /LPF [facility] Nitrite Ql (U) Negative Negative [facility] th pH (U) 5.5 [pH] 5.0 - 8.0 pH [facility] Protein (U) [Mass/Vol] 50 mg/dL Abnormal Negative [facility] RBC LM.HPF (Urine sed) [#/Area] 0-2 [facility] Specific gravity (U) [Rel density] 1.020 1.005 - 1.030 [facility] Urobilinogen (U) [Mass/Vol] Normal Normal (0-1) mg/dL [facility] WBC LM.HPF (Urine sed) [#/Area] 3-5 [facility] XR Chest Single viewon 11-17 1. No acute finding suspected given very low lung volumes. Report Dictated on Electronically Signed By: Clinton Serna Electronically Signed Date/Time: 11/17/2022 11:45 PM EDT [facility] Patient Name: MIKEL WINSTON : [...] no vascular congestion or airspace consolidation suspected. [facility] Clinton Serna MD - 11/17/2022 Patient Name: [...] Electronically Signed Date/Time: 11/17/2022 11:45 PM EDT [facility] Radiology Study observation (narrative) [facility] XR Chest Single viewOrdered By: Clinton Serna on 11-17-2022 [employer] Work Phone: CNCOon 08-05-[address] [facility]CO [address] Text Normal [facility] Basic metabolic 2000 panelon 05-03-2022 Anion gap [Moles/Vol] 12 mmol/L 9 - 18 mmol/L [facility] Calcium [Mass/Vol] 10.6 mg/dL High 8.5 - 10. 2 mg/dL [facility] Chloride [Moles/Vol] 103 mmol/L 97 - 10 5 mmol/L [facility] CO2 [Moles/Vol] 26 mmol/L 22 - 30 mmol/L [facility] Creatinine [Mass/Vol] 1.83 mg/dL High 0.58 - 0.96 mg/dL [facility] Estimated Glomerular Filtration Rate 28 mL/min/1.73m Low >=60 mL/min/1.73 m [facility] Glucose [Mass/Vol] 154 mg/dL High 74 - 99 mg/dL [facility] Potassium [Moles/Vol] 4.5 mmol/L 3.7 - 5.1 mmol/L [facility] Sodium [Moles/Vol] 141 mmol/L 136 - 144 mmol/L [facility] Urea nitrogen [Mass/Vol] 37 mg/dL High 7 - 21 mg/dL [facility] HbA1c (Bld)on 05-03-2022 Average glucose Estimated from glycated hemoglobin (Bld) [Mass/Vol] 151 mg/dL [facility] HbA1c (Bld) [Mass fraction] 6.9 % High 4.3 - 5.6 % [facility] Comp Panel with Mg Reflexon 12-22-2021 Calcium [Mass/Vol] 9.4 mg/dL Normal 8.4-10.4 [facility] [employer] [facility] Comment on above: Performed By: #### B GLU #### [facility] [address] [place] [address] ALP [Catalytic activity/Vol] 108 U/L Normal 38-126 [facility] Comment on above: Performed By: #### B GLU #### [facility] [address] [place] [address] ALT [Catalytic activity/Vol] 14 U/L Normal 0-34 [facility] Comment on above: Result Comment: The ALT test is performed by an updated assay method. Please note that the reference intervals have been changed and are now sex specific. Performed By: #### B GLU #### [facility] [address] [place] [address] Anion gap [Moles/Vol] 5 mmol/L Normal 3-13 [facility] Comment on above: Performed By: #### B GLU #### [facility] [address] [place] [address] AST [Catalytic activity/Vol] 39 U/L Normal 15-46 [facility] Comment on above: Performed By: #### B GLU #### [facility] [address] [place] [address] Bilirubin [Mass/Vol] 1.0 mg/dL Normal 0.2-1.3 [facility] Comment on above: Performed By: #### B GLU #### [facility] [address] [place] [address] CO2 [Moles/Vol] 28 mmol/L Normal 22-30 [facility] Comment on above: Performed By: #### B GLU #### [facility] [address] [place] [address] Glucose [Mass/Vol] 124 mg/dL High 70-100 [facility] Comment on above: Performed By: #### B GLU #### [facility] [address] [place] [address] Protein [Mass/Vol] 6.1 g/dL Low 6.3-8.2 [facility] Comment on above: Performed By: #### B GLU #### [facility] [address] [place] [address] Urea nitrogen [Mass/Vol] 20 mg/dL Normal 9-20 [facility] Comment on above: Performed By: #### B GLU #### [facility] [address] [place] [address] Creatinine [Mass/Vol] 0.98 mg/dL Normal 0.52-1.25 [facility] Comment on above: Performed By: #### B GLU #### [facility] [address] [place] [address] GFR/1.73 sq M.predicted among blacks MDRD (S/P/Bld) [Vol rate/Area] 64.7 mL/min/{1.73_m2} Normal >60 [facility] Comment on above: Performed By: #### B GLU #### [facility] [address] [place] [address] GFR/1.73 sq M.predicted among non-blacks MDRD (S/P/Bld) [Vol rate/Area] 55.9 mL/min/{1.73_m2} Abnormal >60 [facility] Comment on above: Result Comment: KDIG [...] secretion. Performed By: #### B GLU #### [facility] [address] [place] [address] Albumin [Mass/Vol] 3.1 g/dL Low 3.5-5.0 [facility] Comment on above: Performed By: #### B GLU #### [facility] [address] [place] [address] Chloride [Moles/Vol] 103 mmol/L Normal 98-107 [facility] Comment on above: Performed By: #### B GLU #### [facility] [address] [place] [address] Potassium [Moles/Vol] 4.1 mmol/L Normal 3.5-5.1 [facility] Comment on above: Performed By: #### B GLU #### [facility] [address] [place] [address] Sodium [Moles/Vol] 136 mmol/L Normal 135-145 [facility] Comment on above: Performed By: #### B GLU #### [facility] [address] [place] [address] Comprehensive Metabolic Pane l w/ Reflex to MGon 12-22-2021 Albumin [Mass/Vol] 3.1 g/dL Low 3.5 - 5.0 g/dL [facility] ALP (Bld) [Catalytic activity/Vol] 108 U/L 38 - 126 U/L [facility] ALT [Catalytic activity/Vol] 14 U/L 0 - 34 U/L [facility] Comment on above: The ALT test [...] - 1.25 mg/dL [facility] EGFR IF NonAfrican Czech 55.9 mL/min Abnormal >60 [facility] Comment on [...] 124 mg/dL High 70 - 100 mg/dL [facility] Interpretation and review of laboratory results Abnormal [facility] Potassium [Moles/Vol] 4.1 mmol/L 3.5 - 5.1 mmol/L [facility] Sodium [Moles/Vol] 136 mmol/L 135 - 145 mmol/L [facility] Urea nitrogen (BldV) [Mass/Vol] 20 mg/dL 9 - 20 mg/dL [facility] Test Performed by [facility], [address] [place], [place] [address] [facility] Glucose,Bedsideon 12-22-2021 Glucose [Mass/Vol] 117 mg/dL High 70-100 [facility] Comment on above: Result Comment: Test performed by glucose meter. Results may be 10%-15% lower than serum/plasma values. (CLIA ID [id number]) Performed By: #### B NP3, CMP3, HEMDF #### [facility] [address] [place] [address] Glucose [Mass/Vol] 164 mg/dL High 70-100 [facility] Comment on above: Result Comment: Test performed by glucose meter. Results may be 10%-15% lower than serum/plasma values. (CLIA ID [id number]) Performed By: #### B GLU #### [facility] [address] [place] [address] Glucose [Mass/Vol] 115 mg/dL High 70-100 [facility] Comment on above: Result Comment: Test performed by glucose meter. Results may be 10%-15% lower than serum/plasma values. (CLIA ID [id number]) Performed By: #### B GLU #### [facility] [address] [place] [address] POCT Glucoseon 12-22-2021 Glucose [Mass/Vol] 117 mg/dL High 70 - 100 mg/dL [facility] Work Phone: Comment on above: Test performed by gl ucose meter. Results may be 10%-15% lower than serum/plasma values. (CLIA ID [id number]) Interpretation and review of laboratory results Abnormal [facility] Work Phone: Test Performed by [facility], [address] [facility] Work Phone: Test Performed by [facility], [address] LAB Glucose [Mass/Vol] 115 mg/dL High 70 - 100 mg/dL [facility] Work Phone: Comment on above: Test performed by gl ucose meter. Results may be 10%-15% lower than serum/plasma values. (CLIA ID [id number]) Interpretation and review of laboratory results Abnormal [facility] Work Phone: Test Performed by [facility], [address] [facility] Work Phone: POCT GlucoseOrdered By: Johny Biggs on 12-22-2021 Glucose [Mass/Vol] 164 mg/dL High 70 - 100 mg/dL [facility] Work Phone: Comment on above: Test performed by gl ucose meter. Results may be 10%-15% lower than serum/plasma values. (CLIA ID [id number]) Interpretation and review of laboratory results Abnormal [facility] [employer] [employer] Work Phone: [facility] Work Phone: Comp Panel with Mg Reflexon 12-21-2021 ALP [Catalytic activity/Vol] 102 U/L Normal 38-126 [facility] Comment on above: Performed By: #### B GLU #### [facility] [address] [place] [address] ALT [Catalytic activity/Vol] 14 U/L Normal 0-34 [facility] Comment on above: Result Comment: The ALT test is performed by an updated assay method. Please note that the reference intervals have been changed and are now sex specific. Performed By: #### B GLU #### [facility] [address] [place] [address] AST [Catalytic activity/Vol] 40 U/L Normal 15-46 [facility] Comment on above: Performed By: #### B GLU #### [facility] [address] [place] [address] Calcium [Mass/Vol] 9.4 mg/dL Normal 8.4-10.4 [facility] Comment on above: Performed By: #### B GLU #### [facility] [address] [place] [address] Glucose [Mass/Vol] 122 mg/dL High 70-100 [facility] Comment on above: Performed By: #### B GLU #### [facility] [address] [place] [address] Protein [Mass/Vol] 5.8 g/dL Low 6.3-8.2 [facility] Comment on above: Performed By: #### B GLU #### [facility] [address] [place] [address] Urea nitrogen [Mass/Vol] 22 mg/dL High 9-20 [facility] Comment on above: Performed By: #### B GLU #### [facility] [address] [place] [address] Anion gap [Moles/Vol] 3 mmol/L Normal 3-13 [facility] Comment on above: Performed By: #### B GLU #### [facility] [address] [place] [address] Bilirubin [Mass/Vol] 0.9 mg/dL Normal 0.2-1.3 [facility] Comment on above: Performed By: #### B GLU #### [facility] [address] [place] [address] CO2 [Moles/Vol] 31 mmol/L High 22-30 [facility] Comment on above: Performed By: #### B GLU #### [facility] [address] [place] [address] Creatinine [Mass/Vol] 1.01 mg/dL Normal 0.52-1.25 [facility] Comment on above: Performed By: #### B GLU #### [facility] [address] [place] [address] GFR/1.73 sq M.predicted among blacks MDRD (S/P/Bld) [Vol rate/Area] 62.4 mL/min/{1.73_m2} Normal >60 [facility] Comment on above: Performed By: #### B GLU #### [facility] [address] [place] [address] GFR/1.73 sq M.predicted among non-blacks MDRD (S/P/Bld) [Vol rate/Area] 53.9 mL/min/{1.73_m2} Abnormal >60 [facility] Comment on above: Result Comment: KDIG [...] secretion. Performed By: #### B GLU #### [facility] [address] [place] [address] Albumin [Mass/Vol] 3.0 g/dL Low 3.5-5.0 [facility] Comment on above: Performed By: #### B GLU #### [facility] [address] [place] [address] Chloride [Moles/Vol] 103 mmol/L Normal 98-107 [facility] Comment on above: Performed By: #### B GLU #### [facility] [address] [place] [address] Potassium [Moles/Vol] 3.9 mmol/L Normal 3.5-5.1 [facility] Comment on above: Performed By: #### B GLU #### [facility] [address] [place] [address] Sodium [Moles/Vol] 137 mmol/L Normal 135-145 [facility] Comment on above: Performed By: #### B GLU #### [facility] [address] [place] [address] Comprehensive Metabolic Pane l w/ Reflex to MGon 12-21-2021 Albumin [Mass/Vol] 3.0 g/dL Low 3.5 - 5.0 g/dL [facility] ALP (Bld) [Catalytic activity/Vol] 102 U/L 38 - 126 U/L [facility] ALT [Catalytic activity/Vol] 14 U/L 0 - 34 U/L [facility] Comment on above: The ALT test [...] - 1.25 mg/dL [facility] EGFR IF NonAfrican Czech 53.9 mL/min Abnormal >60 [facility] Comment on above: KDIGO guidelines pro [...] 5.8 g/dL Low 6.3 - 8.2 g/dL [facility] GFR/1.73 sq M.predicted among blacks MDRD (S/P/Bld) [Vol rate/Area] 62.4 mL/min/{1.73_m2} >60 [facility] Glucose [Mass/Vol] 122 mg/dL High 70 - 100 mg/dL [facility] Interpretation and review of laboratory results Abnormal [facility] Potassium [Moles/Vol] 3.9 mmol/L 3.5 - 5.1 mmol/L [facility] Sodium [Moles/Vol] 137 mmol/L 135 - 145 mmol/L [facility] Urea nitrogen (BldV) [Mass/Vol] 22 mg/dL High 9 - 20 mg/dL [facility] Test Performed by [facility], [address], [place], [place] [id number] [place] [address] LAB [facility] Glucose,Bedsideon 12-21-2021 Glucose [Mass/Vol] 139 mg/dL High 70-100 [facility] Comment on above: Result Comment: Test performed by glucose meter. Results may be 10%-15% lower than serum/plasma values. (CLIA ID [id number]) Performed By: #### B NP3, CMP3, HEMDF #### [facility] [address] [place] [address] Glucose [Mass/Vol] 99 mg/dL Normal 70-100 [facility] Comment on above: Result Comment: Test performed by glucose meter. Results may be 10%-15% lower than serum/plasma values. (CLIA ID [id number]) Performed By: #### B NP3, CMP3, HEMDF #### [facility] [address] [place] [address] Glucose [Mass/Vol] 156 mg/dL High 70-100 [facility] Comment on above: Result Comment: Test performed by glucose meter. Results may be 10%-15% lower than serum/plasma values. (CLIA ID [id number]) Performed By: #### B GLU #### [facility] [address] [place] [address] Glucose [Mass/Vol] 123 mg/dL High 70-100 [facility] Comment on above: Result Comment: Test performed by glucose meter. Results may be 10%-15% lower than serum/plasma values. (CLIA ID [id number]) Performed By: #### B GLU #### [facility] [address] [place] [address] POCT Glucoseon 12-21-2021 Glucose [Mass/Vol] 139 mg/dL High 70 - 100 mg/dL [facility] Work Phone: Comment on above: Test performed by gl ucose meter. Results may be 10%-15% lower than serum/plasma values. (CLIA ID [id number]) Interpretation and review of laboratory results Abnormal [facility] Work Phone: Test Performed by [facility], [facility] [address] [facility] Work Phone: Glucose [Mass/Vol] 99 mg/dL 70 - 100 mg/dL [facility] Work Phone: Comment on above: Test performed by gl ucose meter. Results may be 10%-15% lower than serum/plasma values. (CLIA ID [id number]) Test Performed by [facility], [address] [facility] Work Phone: Glucose [Mass/Vol] 156 mg/dL High 70 - 100 mg/dL [facility] Work Phone: Comment on above: Test performed by gl ucose meter. Results may be 10%-15% lower than serum/plasma values. (CLIA ID [id number]) Interpretation and review of laboratory results Abnormal [facility] Work Phone: Test Performed by [facility], [address] [facility] Work Phone: [phone] Glucose [Mass/Vol] 123 mg/dL High 70 - 100 mg/dL [facility] Work Phone: [phone] Comment on above: Test performed by ucose meter. Results may be 10%-15% lower than serum/plasma values. (CLIA ID [id number]) Interpretation and review of laboratory results Abnormal [facility] Work Phone: Test Performed by [facility], [address] [place] [address] [facility] Work Phone: [phone] CULTURE BLOODon 12-20-2021 Microscopic examination of blood, culture CULTURE BLOOD --> Status: F No growth at 5 days. Normal [facility] Comment on above: Performed By: #### B NP3, CMP3, HEMDF #### [facility] [address] [place] [address] CULTURE BLOOD (Two)on 2021 Microscopic examination of blood, culture CULTURE BLOOD (Two) --> Status: F No growth at 5 days. Normal [facility] Comment on above: Performed By: #### B GLU #### [facility] [address] [place] [address] Comp Panel with Mg Reflexon 12-20-2021 ALP [Catalytic activity/Vol] 88 U/L Normal 38-126 [facility] Comment on above: Performed By: #### B NP3, CMP3, HEMDF #### [facility] [address] [place] [address] ALT [Catalytic activity/Vol] 13 U/L Normal 0-34 [facility] Comment on above: Result Comment: The ALT test is performed by an updated assay method. Please note that the reference intervals have been changed and are now sex specific. Performed By: #### B NP3, CMP3, HEMDF #### [facility] [address] [place] [address] Anion gap [Moles/Vol] 3 mmol/L Normal 3-13 [facility] Comment on above: Performed By: #### B NP3, CMP3, HEMDF #### [facility] [address] [place] [address] AST [Catalytic activity/Vol] 85 U/L High 15-46 [facility] Comment on above: Performed By: #### B NP3, CMP3, HEMDF #### [facility] [address] [place] [address] Bilirubin [Mass/Vol] 1.2 mg/dL Normal 0.2-1.3 [facility] Comment on above: Performed By: #### B NP3, CMP3, HEMDF #### [facility] [address] [place] [address] Calcium [Mass/Vol] 9.3 mg/dL Normal 8.4-10.4 [facility] Comment on above: Performed By: #### B NP3, CMP3, HEMDF #### [facility] [address] [place] [address] CO2 [Moles/Vol] 33 mmol/L High 22-30 [facility] Comment on above: Performed By: #### B NP3, CMP3, HEMDF #### [facility] [address] [place] [address] Glucose [Mass/Vol] 125 mg/dL High 70-100 [facility] Comment on above: Performed By: #### B NP3, CMP3, HEMDF #### [facility] [address] [place] [address] Protein [Mass/Vol] 6.0 g/dL Low 6.3-8.2 [facility] Comment on above: Performed By: #### B NP3, CMP3, HEMDF #### [facility] [address] [place] [address] Urea nitrogen [Mass/Vol] 26 mg/dL High 9-20 [facility] Comment on above: Performed By: #### B NP3, CMP3, HEMDF #### [facility] [address] [facility] [place] [address] Creatinine [Mass/Vol] 1.02 mg/dL Normal 0.52-1.25 [facility] Comment on above: Performed By: #### B NP3, CMP3, HEMDF #### [facility] [address] [facility] [place] [address] GFR/1.73 sq M.predicted among blacks MDRD (S/P/Bld) [Vol rate/Area] 61.7 mL/min/{1.73_m2} Normal >60 [facility] Comment on above: Performed By: #### B NP3, CMP3, HEMDF #### [facility] [address] [facility] [place] [address] GFR/1.73 sq M.predicted among non-blacks MDRD (S/P/Bld) [Vol rate/Area] 53.2 mL/min/{1.73_m2} Abnormal >60 [facility] Comment on above: Result Comment: KDIG [...] By: #### B NP3, CMP3, HEMDF #### [facility] [address] [place] [address] Albumin [Mass/Vol] 3.2 g/dL Low 3.5-5.0 [facility] Comment on above: Performed By: #### [place] NP3, CMP3, HEMDF #### [facility] [address] [place] [address] Chloride [Moles/Vol] 101 mmol/L Normal 98-107 [facility] Comment on above: Performed By: #### B NP3, CMP3, HEMDF #### [facility] [address] [place] [address] Potassium [Moles/Vol] 3.8 mmol/L Normal 3.5-5.1 [facility] Comment on above: Performed By: #### B NP3, CMP3, HEMDF #### [facility] [address] [place] [address] Sodium [Moles/Vol] 136 mmol/L Normal 135-145 [facility] Comment on above: Performed By: #### B NP3, CMP3, HEMDF #### [facility] [address] [place] [address] Comprehensive Metabolic Pane l w/ Reflex to MGon 12-20-2021 Albumin [Mass/Vol] 3.2 g/dL Low 3.5 - 5.0 g/dL [facility] ALP (Bld) [Catalytic activity/Vol] 88 U/L 38 - 126 U/L [facility] ALT [Catalytic activity/Vol] 13 U/L 0 - 34 U/L [facility] Comment on above: The ALT test [...] - 1.25 mg/dL [facility] EGFR IF NonAfrican Czech 53.2 mL/min Abnormal >60 [facility] Comment on [...] 6.0 g/dL Low 6.3 - 8.2 g/dL [facility] GFR/1.73 sq M.predicted among blacks MDRD (S/P/Bld) [Vol rate/Area] 61.7 mL/min/{1.73_m2} >60 [facility] Glucose [Mass/Vol] 125 mg/dL High 70 - 100 mg/dL [facility] Interpretation and review of laboratory results Abnormal [facility] Potassium [Moles/Vol] 3.8 mmol/L 3.5 - 5.1 mmol/L [facility] Sodium [Moles/Vol] 136 mmol/L 135 - 145 mmol/L [facility] Urea nitrogen (BldV) [Mass/Vol] 26 mg/dL High 9 - 20 mg/dL [facility] Test Performed by [facility], [address], [place], [place] [id number] [place] [address] LAB [facility] Glucose,Bedsideon 12-20-2021 Glucose [Mass/Vol] 155 mg/dL High 70-100 [facility] Comment on above: Result Comment: Test performed by glucose meter. Results may be 10%-15% lower than serum/plasma values. (CLIA ID [id number]) Performed By: #### B NP3, CMP3, HEMDF #### [facility] [address] [place] [address] Glucose [Mass/Vol] 116 mg/dL High 70-100 [facility] Comment on above: Result Comment: Test performed by glucose meter. Results may be 10%-15% lower than serum/plasma values. (CLIA ID [id number]) Performed By: #### B NP3, CMP3, HEMDF #### [facility] [address] [place] [address] Glucose [Mass/Vol] 139 mg/dL High 70-100 [facility] Comment on above: Result Comment: Test performed by glucose meter. Results may be 10%-15% lower than serum/plasma values. (CLIA ID [id number]) Performed By: #### B GLU #### [facility] [address] [place] [address] Glucose [Mass/Vol] 135 mg/dL High 70-100 [facility] Comment on above: Result Comment: Test performed by glucose meter. Results may be 10%-15% lower than serum/plasma values. (CLIA ID [id number]) Performed By: #### B GLU #### [facility] [address] [place] [address] No Panel Informationon 12-20 Blood Culture, Routine No growth at 5 days. [facility] Test Performed by [facility], [address] [place] [address] [facility] POCT Glucoseon 12-20-2021 Glucose [Mass/Vol] 155 mg/dL High 70 - 100 mg/dL [facility] Work Phone: Comment on above: Test performed by gl ucose meter. Results may be 10%-15% lower than serum/plasma values. (CLIA ID [id number]) Interpretation and review of laboratory results Abnormal [facility] Work Phone: Test Performed by [facility], [address] [place], [place] [id number] [place] [address] LAB [facility] Work Phone: Glucose [Mass/Vol] 116 mg/dL High 70 - 100 mg/dL [facility] Comment on above: Test performed by gl ucose meter. Results may be 10%-15% lower than serum/plasma values. (CLIA ID [id number]) Interpretation and review of laboratory results Abnormal [facility] Test Performed by [facility], [address] [facility] Glucose [Mass/Vol] 139 mg/dL High 70 - 100 mg/dL [facility] Comment on above: Test performed by gl ucose meter. Results may be 10%-15% lower than serum/plasma values. (CLIA ID [id number]) Interpretation and review of laboratory results Abnormal [facility] Test Performed by [facility], [address] LAB [facility] Glucose [Mass/Vol] 135 mg/dL High 70 - 100 mg/dL [facility] Work Phone: Comment on above: Test performed by gl ucose meter. Results may be 10%-15% lower than serum/plasma values. (CLIA ID [id number]) Interpretation and review of laboratory results Abnormal [facility] Work Phone: Test Performed by [facility], [facility] [address] [facility] Work Phone: Vancomycinon 12-20-2021 Vancomycin 22.8 ug/mL High 15.0-20.0 [facility] Comment on above: Result Comment: . Performed By: #### B GLU #### [facility] [address] [place] [address] Vancomycin Level, Randomon 0 12-20-2021 Interpretation and review of laboratory results Abnormal [facility] Vancomycin 22.8 ug/mL High 15.0 - 20.0 ug/mL [facility] Comment on above: . Test Performed by [facility], [address] LAB [facility] Comp Panel with Mg Reflexon 12-19-2021 ALP [Catalytic activity/Vol] 104 U/L Normal 38-126 [facility] Comment on above: Performed By: #### B NP3, CMP3, HEMDF #### [facility] [address] [place] [address] ALT [Catalytic activity/Vol] 12 U/L Normal 0-34 [facility] Comment on above: Result Comment: The ALT test is performed by an updated assay method. Please note that the reference intervals have been changed and are now sex specific. Performed By: #### B NP3, CMP3, HEMDF #### [facility] [address] [place] [address] AST [Catalytic activity/Vol] 49 U/L High 15-46 [facility] Comment on above: Performed By: #### B NP3, CMP3, HEMDF #### [facility] [address] [place] [address] Calcium [Mass/Vol] 9.1 mg/dL Normal 8.4-10.4 [facility] Comment on above: Performed By: #### B NP3, CMP3, HEMDF #### [facility] [address] [place] [address] Glucose [Mass/Vol] 117 mg/dL High 70-100 [facility] Comment on above: Performed By: #### B NP3, CMP3, HEMDF #### [facility] [address] [place] [address] Protein [Mass/Vol] 5.8 g/dL Low 6.3-8.2 [facility] Comment on above: Performed By: #### B NP3, CMP3, HEMDF #### [facility] [address] [place] [address] Urea nitrogen [Mass/Vol] 26 mg/dL High 9-20 [facility] Comment on above: Performed By: #### B NP3, CMP3, HEMDF #### [facility] [address] [place] [address] Anion gap [Moles/Vol] 2 mmol/L Low 3-13 [facility] Comment on above: Performed By: #### B NP3, CMP3, HEMDF #### [facility] [address] [place] [address] Bilirubin [Mass/Vol] 1.0 mg/dL Normal 0.2-1.3 [facility] Comment on above: Performed By: #### B NP3, CMP3, HEMDF #### [facility] [address] [place] [address] CO2 [Moles/Vol] 31 mmol/L High 22-30 [facility] Comment on above: Performed By: #### B NP3, CMP3, HEMDF #### [facility] [address] [place] [address] Creatinine [Mass/Vol] 1.13 mg/dL Normal 0.52-1.25 [facility] Comment on above: Performed By: #### B NP3, CMP3, HEMDF #### [facility] [address] [place] [address] GFR/1.73 sq M.predicted among blacks MDRD (S/P/Bld) [Vol rate/Area] 54.5 mL/min/{1.73_m2} Abnormal >60 [facility] Comment on above: Performed By: #### B NP3, CMP3, HEMDF #### [facility] [address] [facility] [place] [address] GFR/1.73 sq M.predicted among non-blacks MDRD (S/P/Bld) [Vol rate/Area] 47.0 mL/min/{1.73_m2} Abnormal >60 [facility] Comment on above: Result Comment: KDIG [...] By: #### B NP3, CMP3, HEMDF #### [facility] [address] [place] [address] Albumin [Mass/Vol] 2.9 g/dL Low 3.5-5.0 [facility] Comment on above: Performed By: #### B NP3, CMP3, HEMDF #### [facility] [address] [place] [address] Chloride [Moles/Vol] 101 mmol/L Normal 98-107 [facility] Comment on above: Performed By: #### B NP3, CMP3, HEMDF #### [facility] [address] [place] [address] Potassium [Moles/Vol] 3.7 mmol/L Normal 3.5-5.1 [facility] Comment on above: Performed By: #### B NP3, CMP3, HEMDF #### [facility] [address] [place] [address] Sodium [Moles/Vol] 133 mmol/L Low 135-145 [facility] Comment on above: Performed By: #### B NP3, CMP3, HEMDF #### [facility] [address] [place] [address] Comprehensive Metabolic Pane l w/ Reflex to MGon 12-19-2021 Albumin [Mass/Vol] 2.9 g/dL Low 3.5 - 5.0 g/dL [facility] ALP (Bld) [Catalytic activity/Vol] 104 U/L 38 - 126 U/L [facility] ALT [Catalytic activity/Vol] 12 U/L 0 - 34 U/L [facility] Comment on above: The ALT test [...] - 1.25 mg/dL [facility] EGFR IF NonAfrican Czech 47.0 mL/min Abnormal >60 [facility] Comment on [...] 5.8 g/dL Low 6.3 - 8.2 g/dL [facility] GFR/1.73 sq M.predicted among blacks MDRD (S/P/Bld) [Vol rate/Area] 54.5 mL/min/{1.73_m2} Abnormal >60 [facility] Glucose [Mass/Vol] 117 mg/dL High 70 - 100 mg/dL [facility] Interpretation and review of laboratory results Abnormal [facility] Potassium [Moles/Vol] 3.7 mmol/L 3.5 - 5.1 mmol/L [facility] Sodium [Moles/Vol] 133 mmol/L Low 135 - 145 mmol/L [facility] Urea nitrogen (BldV) [Mass/Vol] 26 mg/dL High 9 - 20 mg/dL [facility] Test Performed by [facility], [address] [place], [place] [id number] [place] [address] LAB [facility] Glucose,Bedsideon 12-19-2021 Glucose [Mass/Vol] 186 mg/dL High 70-100 [facility] Comment on above: Result Comment: Test performed by glucose meter. Results may be 10%-15% lower than serum/plasma values. (CLIA ID [id number]) Performed By: #### B NP3, CMP3, HEMDF #### [facility] [address] [place] [address] Glucose [Mass/Vol] 148 mg/dL High 70-100 [facility] Comment on above: Result Comment: Test performed by glucose meter. Results may be 10%-15% lower than serum/plasma values. (CLIA ID [id number]) Performed By: #### B NP3, CMP3, HEMDF #### [facility] [address] [place] [address] Glucose [Mass/Vol] 124 mg/dL High 70-100 [facility] Comment on above: Result Comment: Test performed by glucose meter. Results may be 10%-15% lower than serum/plasma values. (CLIA ID [id number]) Performed By: #### B GLU #### [facility] [address] [place] [address] Glucose [Mass/Vol] 120 mg/dL High 70-100 [facility] Comment on above: Result Comment: Test performed by glucose meter. Results may be 10%-15% lower than serum/plasma values. (CLIA ID [id number]) Performed By: #### B GLU #### [facility] [address] [place] [address] POCT GlucoseOrdered By: Kings Cancino on 12-19-2021 Glucose [Mass/Vol] 186 mg/dL High 70 - 100 mg/dL [facility] Comment on above: Test performed by gl ucose meter. Results may be 10%-15% lower than serum/plasma values. (CLIA ID [id number]) Interpretation and review of laboratory results Abnormal [facility] POCT Glucoseon 12-19-2021 Test Performed by [facility], [address] [place], [place] [address] [place] [address] LAB Glucose [Mass/Vol] 148 mg/dL High 70 - 100 mg/dL [facility] Comment on above: Test performed by gl ucose meter. Results may be 10%-15% lower than serum/plasma values. (CLIA ID [id number]) Interpretation and review of laboratory results Abnormal [facility] Test Performed by [facility], [address] [place], [place] [id number] [place] [address] LAB [facility] Glucose [Mass/Vol] 124 mg/dL High 70 - 100 mg/dL [facility] Comment on above: Test performed by gl ucose meter. Results may be 10%-15% lower than serum/plasma values. (CLIA ID [id number]) Interpretation and review of laboratory results Abnormal [facility] Test Performed by [facility], [address] LAB [facility] Glucose [Mass/Vol] 120 mg/dL High 70 - 100 mg/dL [facility] Comment on above: Test performed by gl ucose meter. Results may be 10%-15% lower than serum/plasma values. (CLIA ID [id number]) Interpretation and review of laboratory results Abnormal [facility] Test Performed by [facility], [address] [place], [address] LAB [facility] Vancomycin Level, Troughon 0 12-19-2021 Interpretation and review of laboratory results Abnormal [facility] Vancomycin Tr 27 ug/mL High 15.0 - 20.0 ug/mL [facility] Comment on above: . Test Performed by [facility], [address] LAB [facility] Vancomycin Troughon 12-20-19 22 Vancomycin Trough 27.0 ug/mL High 15.0-20.0 [facility] Comment on above: Result Comment: . Performed By: #### B NP3, CMP3, HEMDF #### [facility] [address] [place] [address] Brain Natriuretic Peptideon 12-18-2021 Natriuretic peptide B (Bld) [Mass/Vol] 7432 pg/mL High 0 - 450 pg/mL [facility] CBC with Auto Differentialon 12-18-2021 Absolute Baso # 0.1 10*3/uL 0.0 - 0.2 10*3/uL [facility] Absolute Neut # 3.8 10*3/uL 1.8 - 7.0 10*3/uL [facility] Hemoglobin.gastrointestin al spec 1 Ql (Stl) 10.4 g/dL Low 11.7 - 16.0 g/dL [facility] MCHC (RBC) [Mass/Vol] 33.8 % 32.0 - 36.0 % [facility] Platelet distribution width (Bld) [Ratio] 13.0 % 11.5 - 14.5 % [facility] Comp Metabolic Panelon 12-18 ALT [Catalytic activity/Vol] 11 U/L Normal 0-34 [facility] Comment on above: Result Comment: The ALT test is performed by an updated assay method. Please note that the reference intervals have been changed and are now sex specific. Performed By: #### B NP3, CMP3, HEMDF #### [facility] [address] [place] [address] Calcium [Mass/Vol] 9.1 mg/dL Normal 8.4-10.4 [facility] Comment on above: Performed By: #### B NP3, CMP3, HEMDF #### [facility] [address] [place] [address] Glucose [Mass/Vol] 121 mg/dL High 70-100 [facility] Comment on above: Performed By: #### B NP3, CMP3, HEMDF #### [facility] [address] [place] [address] Urea nitrogen [Mass/Vol] 24 mg/dL High 9-20 [facility] Comment on above: Performed By: #### B NP3, CMP3, HEMDF #### [facility] [address] [place] [address] ALP [Catalytic activity/Vol] 98 U/L Normal 38-126 [facility] Comment on above: Performed By: #### B NP3, CMP3, HEMDF #### [facility] [address] [place] [address] Anion gap [Moles/Vol] 1 mmol/L Low 3-13 [facility] Comment on above: Performed By: #### B NP3, CMP3, HEMDF #### [facility] [address] [place] [address] AST [Catalytic activity/Vol] 53 U/L High 15-46 [facility] Comment on above: Performed By: #### B NP3, CMP3, HEMDF #### [facility] [address] [place] [address] Bilirubin [Mass/Vol] 0.9 mg/dL Normal 0.2-1.3 [facility] Comment on above: Performed By: #### B NP3, CMP3, HEMDF #### [facility] [address] [place] [address] CO2 [Moles/Vol] 30 mmol/L Normal 22-30 [facility] Comment on above: Performed By: #### B NP3, CMP3, HEMDF #### [facility] [address] [place] [address] Creatinine [Mass/Vol] 1.01 mg/dL Normal 0.52-1.25 [facility] Comment on above: Performed By: #### B NP3, CMP3, HEMDF #### [facility] [address] [place] [address] GFR/1.73 sq M.predicted among blacks MDRD (S/P/Bld) [Vol rate/Area] 62.4 mL/min/{1.73_m2} Normal >60 [facility] Comment on above: Performed By: #### B NP3, CMP3, HEMDF #### [facility] [address] [place] [address] GFR/1.73 sq M.predicted among non-blacks MDRD (S/P/Bld) [Vol rate/Area] 53.9 mL/min/{1.73_m2} Abnormal >60 [facility] Comment on above: Result Comment: KDIG [...] By: #### B NP3, CMP3, HEMDF #### [facility] [address] [place] [address] Protein [Mass/Vol] 6.1 g/dL Low 6.3-8.2 [facility] Comment on above: Performed By: #### B NP3, CMP3, HEMDF #### [facility] [address] [place] [address] Potassium [Moles/Vol] 3.7 mmol/L Normal 3.5-5.1 [facility] Comment on above: Performed By: #### B NP3, CMP3, HEMDF #### [facility] [address] [place] [address] Sodium [Moles/Vol] 134 mmol/L Low 135-145 [facility] Comment on above: Performed By: #### B NP3, CMP3, HEMDF #### [facility] [address] [place] [address] Albumin [Mass/Vol] 3.0 g/dL Low 3.5-5.0 [facility] Comment on above: Performed By: #### B NP3, CMP3, HEMDF #### [facility] [address] [place] [address] Chloride [Moles/Vol] 104 mmol/L Normal 98-107 [facility] Comment on above: Performed By: #### B NP3, CMP3, HEMDF #### [facility] [address] [place] [address] Comprehensive Metabolic Pane smith 12-18-2021 Albumin [Mass/Vol] 3.0 g/dL Low 3.5 - 5.0 g/dL [facility] ALP (Bld) [Catalytic activity/Vol] 98 U/L 38 - 126 U/L [facility] ALT [Catalytic activity/Vol] 11 U/L 0 - 34 U/L [facility] Comment on above: The ALT test [...] - 1.25 mg/dL [facility] EGFR IF NonAfrican Czech 53.9 mL/min Abnormal >60 [facility] Comment on above: KDIGO guidelines pro [...] 134 mmol/L Low 135 - 145 mmol/L [facility] Urea nitrogen (BldV) [Mass/Vol] 24 mg/dL High 9 - 20 mg/dL [facility] Glucose,Bedsideon 12-18-2021 Glucose [Mass/Vol] 155 mg/dL High 70-100 [facility] Comment on above: Result Comment: Test performed by glucose meter. Results may be 10%-15% lower than serum/plasma values. (CLIA ID [id number]) Performed By: #### B NP3, CMP3, HEMDF #### [facility] [address] [place] [address] Glucose [Mass/Vol] 122 mg/dL High 70-100 [facility] Comment on above: Result Comment: Test performed by glucose meter. Results may be 10%-15% lower than serum/plasma values. (CLIA ID [id number]) Performed By: #### B GLU #### [facility] [address] [place] [address] Glucose [Mass/Vol] 168 mg/dL High 70-100 [facility] Comment on above: Result Comment: Test performed by glucose meter. Results may be 10%-15% lower than serum/plasma values. (CLIA ID [id number]) Performed By: #### B GLU #### [place] [address] [place] [address] Glucose [Mass/Vol] 124 mg/dL High 70-100 [facility] Comment on above: Result Comment: Test performed by glucose meter. Results may be 10%-15% lower than serum/plasma values. (CLIA ID [id number]) Performed By: #### B GLU #### [facility] [address] [place] [address] Hemogram w/ Autodiffon 12-18 Abs Baso Cnt 0.1 10*3/uL Normal 0.0-0.2 [facility] Comment on above: Performed By: #### B NP3, CMP3, HEMDF #### [facility] [address] [place] [address] Abs Neutrophile Cnt 3.8 10*3/uL Normal 1.8-7.0 [facility] Comment on above: Performed By: #### B NP3, CMP3, HEMDF #### [facility] [address] [place] [address] Basophils/100 WBC (Bld) 0.8 % Normal 0.0-2.0 [facility] Comment on above: Performed By: #### B NP3, CMP3, HEMDF #### [facility] [address] [place] [address] Eosinophils (Bld) [#/Vol] 0.3 10*3/uL Normal 0.0-0.5 [facility] Comment on above: Performed By: #### B NP3, CMP3, HEMDF #### [facility] [address] [place] [address] Eosinophils/100 WBC (Bld) 5.2 % Normal 1.0-6.0 [facility] Comment on above: Performed By: #### B NP3, CMP3, HEMDF #### [facility] [address] [place] [address] Erythrocyte distribution width (RBC) [Ratio] 13.0 % Normal 11.5-14.5 [facility] Comment on above: Performed By: #### B NP3, CMP3, HEMDF #### [facility] [address] [place] [address] Granulocytes/100 WBC (Bld) 61.3 % Normal 40.0-80.0 [facility] Comment on above: Performed By: #### B NP3, CMP3, HEMDF #### [facility] [address] [place] [address] Hematocrit (Bld) [Volume fraction] 30.8 % Low 35.0-47.0 [facility] Comment on above: Performed By: #### B NP3, CMP3, HEMDF #### [facility] [address] [place] [address] Hemoglobin (Bld) [Mass/Vol] 10.4 g/dL Low 11.7-16.0 [facility] Comment on above: Performed By: #### B NP3, CMP3, HEMDF #### [facility] [address] [place] [address] Lymphocytes (Bld) [#/Vol] 1.1 10*3/uL Normal 1.0-4.3 [facility] Comment on above: Performed By: #### B NP3, CMP3, HEMDF #### [facility] [address] [place] [address] Lymphocytes/100 WBC (Bld) 16.8 % Low 20.0-40.0 [facility] Comment on above: Performed By: #### B NP3, CMP3, HEMDF #### [facility] [address] [place] [address] MCH (RBC) [Entitic mass] 32.8 pg Normal 26.0-34.0 [facility] Comment on above: Performed By: #### B NP3, CMP3, HEMDF #### [facility] [address] [place] [address] MCHC 33.8 % Normal 32.0-36.0 [facility] Comment on above: Performed By: #### B NP3, CMP3, HEMDF #### [facility] [address] [place] [address] MCV (RBC) [Entitic vol] 97.1 fL Normal 79.0-98.0 [facility] Comment on above: Performed By: #### B NP3, CMP3, HEMDF #### [facility] [address] [place] [address] Monocytes (Bld) [#/Vol] 1.0 10*3/uL High 0.0-0.8 [facility] Comment on above: Performed By: #### B NP3, CMP3, HEMDF #### [facility] [address] [place] [address] Monocytes/100 WBC (Bld) 15.9 % High 2.0-10.0 [facility] Comment on above: Performed By: #### B NP3, CMP3, HEMDF #### [facility] [address] [place] [address] Platelet mean volume (Bld) [Entitic vol] 9.9 fL Normal 7.4-12.4 [facility] Comment on above: MPV is a calculated measurement using platelet volume ratio. Result Comment: MPV is a calculated measurement using platelet volume ratio. Performed By: #### B NP3, CMP3, HEMDF #### [facility] [address] [place] [address] Platelets (Bld) [#/Vol] 108 10*3/uL Low 140-440 [facility] Comment on above: Performed By: #### B NP3, CMP3, HEMDF #### [facility] [address] [place] [address] RBC (Bld) [#/Vol] 3.17 10*6/uL Low 3.80-5.20 [facility] Comment on above: Performed By: #### B NP3, CMP3, HEMDF #### [facility] [address] [place] [address] WBC (Bld) [#/Vol] 6.3 10*3/uL Normal 3.6-10.7 [facility] Comment on above: Performed By: #### B NP3, CMP3, HEMDF #### [facility] [address] [place] [address] NT pro BNPon 12-18-2021 Natriuretic peptide B (Bld) [Mass/Vol] 7432 pg/mL High 0-450 [facility] Comment on above: Performed By: #### B NP3, CMP3, HEMDF #### [facility] [address] [place] [address] No Panel Informationon 12-18 Interpretation and review of laboratory results Abnormal [facility] Test Performed by [facility], [facility] [address] LAB [facility] POCT GlucoseOrdered By: Geovani Figueroa on 12-18-2021 Glucose [Mass/Vol] 155 mg/dL High 70 - 100 mg/dL [facility] Work Phone: Comment on above: Test performed by gl ucose meter. Results may be 10%-15% lower than serum/plasma values. (CLIA ID [id number]) Interpretation and review of laboratory results Abnormal [facility] Work Phone: [facility] Work Phone: POCT Glucoseon 12-18-2021 Test Performed by [facility], [facility] [address] LAB Glucose [Mass/Vol] 122 mg/dL High 70 - 100 mg/dL [facility] Work Phone: Comment on above: Test performed by gl ucose meter. Results may be 10%-15% lower than serum/plasma values. (CLIA ID [id number]) Interpretation and review of laboratory results Abnormal [facility] Work Phone: Test Performed by [facility], [facility] [address] LAB [facility] Work Phone: Test Performed by [facility], [address] [place] [address] [facility] LAB Glucose [Mass/Vol] 124 mg/dL High 70 - 100 mg/dL [facility] Work Phone: Comment on above: Test performed by gl ucose meter. Results may be 10%-15% lower than serum/plasma values. (CLIA ID [id number]) Interpretation and review of laboratory results Abnormal [facility] Work Phone: Test Performed by [facility], [address] [place] [address] [facility] LAB [facility] Work Phone: POCT GlucoseOrdered By: Mikhail Levine on 12-18-2021 Glucose [Mass/Vol] 168 mg/dL High 70 - 100 mg/dL [facility] Work Phone: Comment on above: Test performed by gl ucose meter. Results may be 10%-15% lower than serum/plasma values. (CLIA ID [id number]) Interpretation and review of laboratory results Abnormal [facility] Work Phone: [facility] Work Phone: CR Chest PA/LATon 12-17-2021 CR Chest PA/LAT Patient Name: MIKEL WINSTON Diagnostic Radiology ACCESSION EXAM DATE/TIME PROCEDURE ORDERING PROVIDER [id number] 12/17/2021 16:43 EDT CR Chest PA and LAT ARIEL SOLITARIO CPT code 44081 Reason For Exam (CR Chest PA and [...] Transcribed Date and Time: 12/17/2021 6:57 Normal [facility] Comp Panel with Mg Reflexon 12-17-2021 ALP [Catalytic activity/Vol] 101 U/L Normal 38-126 [facility] Comment on above: Performed By: #### B GLU #### [facility] [address] [place] [address] ALT [Catalytic activity/Vol] 12 U/L Normal 0-34 [facility] Comment on above: Result Comment: The ALT test is performed by an updated assay method. Please note that the reference intervals have been changed and are now sex specific. Performed By: #### B GLU #### [facility] [address] [place] [address] AST [Catalytic activity/Vol] 42 U/L Normal 15-46 [facility] Comment on above: Performed By: #### B GLU #### [facility] [address] [place] [address] Calcium [Mass/Vol] 8.9 mg/dL Normal 8.4-10.4 [facility] Comment on above: Performed By: #### B GLU #### [facility] [address] [place] [address] Glucose [Mass/Vol] 157 mg/dL High 70-100 [facility] Comment on above: Performed By: #### B GLU #### [facility] [address] [place] [address] Protein [Mass/Vol] 5.7 g/dL Low 6.3-8.2 [facility] Comment on above: Performed By: #### B GLU #### [facility] [address] [place] [address] Urea nitrogen [Mass/Vol] 28 mg/dL High 9-20 [facility] Comment on above: Performed By: #### B GLU #### [facility] [address] [place] [address] Anion gap [Moles/Vol] 3 mmol/L Normal 3-13 [facility] Comment on above: Performed By: #### B GLU #### [facility] [address] [place] [address] Bilirubin [Mass/Vol] 0.8 mg/dL Normal 0.2-1.3 [facility] Comment on above: Performed By: #### B GLU #### [facility] [address] [place] [address] CO2 [Moles/Vol] 28 mmol/L Normal 22-30 [facility] Comment on above: Performed By: #### B GLU #### [facility] [address] [place] [address] Creatinine [Mass/Vol] 1.06 mg/dL Normal 0.52-1.25 [facility] Comment on above: Performed By: #### B GLU #### [facility] [address] [place] [address] GFR/1.73 sq M.predicted among blacks MDRD (S/P/Bld) [Vol rate/Area] 58.9 mL/min/{1.73_m2} Abnormal >60 [facility] Comment on above: Performed By: #### B GLU #### [facility] [address] [place] [address] GFR/1.73 sq M.predicted among non-blacks MDRD (S/P/Bld) [Vol rate/Area] 50.8 mL/min/{1.73_m2} Abnormal >60 [facility] Comment on above: Result Comment: KDIG [...] secretion. Performed By: #### B GLU #### [facility] [address] [place] [address] Albumin [Mass/Vol] 2.9 g/dL Low 3.5-5.0 [facility] Comment on above: Performed By: #### B GLU #### [facility] [address] [place] [address] Chloride [Moles/Vol] 105 mmol/L Normal 98-107 [facility] Comment on above: Performed By: #### B GLU #### [facility] [address] [place] [address] Potassium [Moles/Vol] 3.4 mmol/L Low 3.5-5.1 [facility] Comment on above: Performed By: #### B GLU #### [facility] [address] [place] [address] Sodium [Moles/Vol] 137 mmol/L Normal 135-145 [facility] Comment on above: Performed By: #### B GLU #### [facility] [address] [place] [address] Comprehensive Metabolic Pane l w/ Reflex to MGon 12-17-2021 Albumin [Mass/Vol] 2.9 g/dL Low 3.5 - 5.0 g/dL [facility] ALP (Bld) [Catalytic activity/Vol] 101 U/L 38 - 126 U/L [facility] ALT [Catalytic activity/Vol] 12 U/L 0 - 34 U/L [facility] Comment on above: The ALT test [...] - 1.25 mg/dL [facility] EGFR IF NonAfrican Czech 50.8 mL/min Abnormal >60 [facility] Comment on above: KDIGO guidelines pro [...] (S/P/Bld) [Vol rate/Area] 58.9 mL/min/{1.73_m2} Abnormal >60 [facility] Glucose [Mass/Vol] 157 mg/dL High 70 - 100 mg/dL [facility] Interpretation and review of laboratory results Abnormal [facility] Potassium [Moles/Vol] 3.4 mmol/L Low 3.5 - 5.1 mmol/L [facility] Sodium [Moles/Vol] 137 mmol/L 135 - 145 mmol/L [facility] Urea nitrogen (BldV) [Mass/Vol] 28 mg/dL High 9 - 20 mg/dL [facility], [address] [place], [place] [address] [facility] Glucose,Bedsideon 12-17-2021 Glucose [Mass/Vol] 170 mg/dL High 70-100 [facility] Comment on above: Result Comment: Test performed by glucose meter. Results may be 10%-15% lower than serum/plasma values. (CLIA ID [id number]) Performed By: #### B NP3, CMP3, HEMDF #### [facility] [address] [place] [address] Glucose [Mass/Vol] 128 mg/dL High 70-100 [facility] Comment on above: Result Comment: Test performed by glucose meter. Results may be 10%-15% lower than serum/plasma values. (CLIA ID [id number]) Performed By: #### B GLU #### [facility] [address] [place] [address] Glucose [Mass/Vol] 149 mg/dL High 70-100 [facility] Comment on above: Result Comment: Test performed by glucose meter. Results may be 10%-15% lower than serum/plasma values. (CLIA ID [id number]) Performed By: #### B NP3, CMP3, HEMDF #### [facility] [address] [place] [address] Glucose [Mass/Vol] 159 mg/dL High 70-100 [facility] Comment on above: Result Comment: Test performed by glucose meter. Results may be 10%-15% lower than serum/plasma values. (CLIA ID [id number]) Performed By: #### B GLU #### [facility] [address] [facility] [place] [address] Magnesiumon 12-17-2021 Magnesium [Mass/Vol] 1.5 mg/dL Low 1.6-2.3 [facility] Comment on above: Performed By: #### B GLU #### [facility] [address] [place] [address] Interpretation and review of laboratory results Abnormal [facility] Magnesium [Mass/Vol] 1.5 mg/dL Low 1.6 - 2 .3 mg/dL [facility] Test Performed by [facility], [address] [place], [place] [address] [facility] POCT Glucoseon 12-17-2021 Glucose [Mass/Vol] 170 mg/dL High 70 - 100 mg/dL [facility] Work Phone: Comment on above: Test performed by gl ucose meter. Results may be 10%-15% lower than serum/plasma values. (CLIA ID [id number]) Interpretation and review of laboratory results Abnormal [facility] Work Phone: Test Performed by [facility], [address] LAB [facility] Work Phone: Test Performed by [facility], [address] LAB Glucose [Mass/Vol] 149 mg/dL High 70 - 100 mg/dL [facility] Work Phone: Comment on above: Test performed by gl ucose meter. Results may be 10%-15% lower than serum/plasma values. (CLIA ID [id number]) Interpretation and review of laboratory results Abnormal [facility] Work Phone: Test Performed by [facility], [address] LAB [facility] Work Phone: [phone] Glucose [Mass/Vol] 159 mg/dL High 70 - 100 mg/dL [facility] Work Phone: Comment on above: Test performed by gl ucose meter. Results may be 10%-15% lower than serum/plasma values. (CLIA ID [id number]) Interpretation and review of laboratory results Abnormal [facility] Work Phone: Test Performed by [facility], [address] LAB [facility] Work Phone: POCT GlucoseOrdered By: Jenny Velásquez on 12-17-2021 Glucose [Mass/Vol] 128 mg/dL High 70 - 100 mg/dL [facility] Work Phone: Comment on above: Test performed by gl ucose meter. Results may be 10%-15% lower than serum/plasma values. (CLIA ID [id number]) Interpretation and review of laboratory results Abnormal [facility] Work Phone: [facility] Work Phone: Vancomycin Level, Troughon 0 12-17-2021 Interpretation and review of laboratory results Abnormal [facility] Vancomycin Tr 11.4 ug/mL Low 15.0 - 20.0 ug/mL [facility] Comment on above: . Test Performed by [facility], [address], [place], [place] [address] [facility] Vancomycin Troughon 12-18-19 Vancomycin Trough 11.4 ug/mL Low 15.0-20.0 [facility] Comment on above: Result Comment: . Performed By: #### B NP3, CMP3, HEMDF #### [facility] [address] [place] [address] XR CHEST (2 VW)on 12-17-2021 Patient Name: MIKEL WINSTON Diagnostic Radiology ACCESSION EXAM DATE/TIME PROCEDURE ORDERING PROVIDER [id number] 12/17/2021 16:43 EDT CR Chest PA & LAT ARIEL SOLITARIO CPT code 13627 Reason For Exam (CR Chest PA & [...] NELSON Transcribed Date and Time: 12/17/2021 6:57 [facility] Winston Berger. MD Nahid - 12/17/2021 Patient Name: MIKEL WINSTON Diagnostic Radiology ACCESSION EXAM DATE/TIME PROCEDURE ORDERING PROVIDER [id number] 12/17/2021 16:43 EDT CR Chest PA & LAT ARIEL SOLITARIO CPT code 26186 Reason For Exam (CR Chest PA & [...] NELSON Transcribed Date and Time: 12/17/2021 6:57 [facility] Work Phone: Radiology Study observation (narrative) [employer] Work Phone: XR CHEST (2 VW)Ordered By: Winston Berger on 12-17-2021 [employer] Work Phone: CULTURE BLOODon 12-16-2021 Microscopic examination of blood, culture 1 Organism Enterococcus faecalis Isolated: For identification and/or sensitivity, refer to culture collected on: 12/13/2021 at 1518 ([id number]). Normal [facility] Comment on above: Performed By: #### B NP3, CMP3, HEMDF #### [facility] [address] [place] [address] CULTURE BLOOD (Two)on 2021 Microscopic examination of blood, culture CULTURE BLOOD (Two) --> Status: F Enterococcus faecalis DETECTED; Leticia/B Not Detected. Presumptive identification performed using Camerama PCR methodology; confirmatory identification to follow. _ The Camerama BCID2 PCR Panel can detect the following [...] VIM, and mcr-1. Presumptive identification performed using Camerama PCR methodology; confirmatory identification to follow. _ The Camerama BCID2 PCR Panel can detect the following [...] R Streptomycin High Level synergy(CHRISTA)SYN-R R Normal [facility] Comment on above: Performed By: #### B NP3, CMP3, HEMDF #### [facility] [address] [place] [address] Comp Panel with Mg Reflexon 12-16-2021 Calcium [Mass/Vol] 8.5 mg/dL Normal 8.4-10.4 [facility] Comment on above: Performed By: #### B GLU #### [facility] [address] [place] [address] ALP [Catalytic activity/Vol] 73 U/L Normal 38-126 [facility] Comment on above: Performed By: #### B GLU #### [facility] [address] [place] [address] ALT [Catalytic activity/Vol] 14 U/L Normal 0-34 [facility] Comment on above: Result Comment: The ALT test is performed by an updated assay method. Please note that the reference intervals have been changed and are now sex specific. Performed By: #### B GLU #### [facility] [address] [place] [address] Anion gap [Moles/Vol] 3 mmol/L Normal 3-13 [facility] Comment on above: Performed By: #### B GLU #### [facility] [address] [place] [address] AST [Catalytic activity/Vol] 42 U/L Normal 15-46 [facility] Comment on above: Performed By: #### B GLU #### [facility] [address] [place] [address] Bilirubin [Mass/Vol] 1.0 mg/dL Normal 0.2-1.3 [facility] Comment on above: Performed By: #### B GLU #### [facility] [address] [place] [address] CO2 [Moles/Vol] 27 mmol/L Normal 22-30 [facility] Comment on above: Performed By: #### B GLU #### [facility] [address] [place] [address] Glucose [Mass/Vol] 140 mg/dL High 70-100 [facility] Comment on above: Performed By: #### B GLU #### [facility] [address] [place] [address] Protein [Mass/Vol] 5.5 g/dL Low 6.3-8.2 [facility] Comment on above: Performed By: #### B GLU #### [facility] [address] [place] [address] Urea nitrogen [Mass/Vol] 27 mg/dL High 9-20 [facility] Comment on above: Performed By: #### B GLU #### [facility] [address] [place] [address] Creatinine [Mass/Vol] 1.28 mg/dL High 0.52-1.25 [facility] Comment on above: Performed By: #### B GLU #### [facility] [address] [place] [address] GFR/1.73 sq M.predicted among blacks MDRD (S/P/Bld) [Vol rate/Area] 46.9 mL/min/{1.73_m2} Abnormal >60 [facility] Comment on above: Performed By: #### B GLU #### [facility] [address] [place] [address] GFR/1.73 sq M.predicted among non-blacks MDRD (S/P/Bld) [Vol rate/Area] 40.4 mL/min/{1.73_m2} Abnormal >60 [facility] Comment on above: Result Comment: KDIG [...] secretion. Performed By: #### B GLU #### [facility] [address] [place] [address] Albumin [Mass/Vol] 2.7 g/dL Low 3.5-5.0 [facility] Comment on above: Performed By: #### B GLU #### [facility] [address] [place] [address] Chloride [Moles/Vol] 101 mmol/L Normal 98-107 [facility] Comment on above: Performed By: #### B GLU #### [facility] [address] [place] [address] Potassium [Moles/Vol] 3.0 mmol/L Low 3.5-5.1 [facility] Comment on above: Performed By: #### B GLU #### [facility] [address] [place] [address] Sodium [Moles/Vol] 131 mmol/L Low 135-145 [facility] Comment on above: Performed By: #### B GLU #### [facility] [address] [place] [address] Comprehensive Metabolic Pane l w/ Reflex to MGon 12-16-2021 Albumin [Mass/Vol] 2.7 g/dL Low 3.5 - 5.0 g/dL [facility] ALP (Bld) [Catalytic activity/Vol] 73 U/L 38 - 126 U/L [facility] ALT [Catalytic activity/Vol] 14 U/L 0 - 34 U/L [facility] Comment on above: The ALT test [...] - 1.25 mg/dL [facility] EGFR IF NonAfrican Czech 40.4 mL/min Abnormal >60 [facility] Comment on [...] - 20 mg/dL [facility] Test Performed by [facility], [address] [place], [place], [place] [id number] [place] [address] LAB [facility] Culture, Bloodon 12-16-2021 Blood Culture, Routine Isolated: For identification and/or sensitivity, refer to culture collected on: 12/13/2021 at 1518 ([id number]). [facility] Culture, Blood 2on Blood Culture, Routine Enterococcus faecalis DETECTED; Leticia/B Not Detected. Presumptive identification performed using Camerama PCR methodology; confirmatory identification to follow. _ The emoquoArray BCID2 PCR Panel can detect the following [...] KPC, NDM, OXA-48-like, VIM, and mcr-1. Abnormal [facility] Blood Culture, Routine Isolated: PRINCE MMA Glucose,Bedsideon 12-16-2021 Glucose [Mass/Vol] 208 mg/dL High [address] Comment on above: Result Comment: Test performed by glucose meter. Results may be 10%-15% lower than serum/plasma values. (CLIA ID [id number]) Performed By: #### B NP3, CMP3, HEMDF #### [facility] [address] [place] [address] Glucose [Mass/Vol] 153 mg/dL High [address] Comment on above: Result Comment: Test performed by glucose meter. Results may be 10%-15% lower than serum/plasma values. (CLIA ID [id number]) Performed By: #### B NP3, CMP3, HEMDF #### [facility] [address] [place] [address] Glucose [Mass/Vol] 169 mg/dL High [address] [place] [address] Comment on above: Result Comment: Test performed by glucose meter. Results may be 10%-15% lower than serum/plasma values. (CLIA ID [id number]) Performed By: #### B GLU #### [facility] [address] [place] [address] Glucose [Mass/Vol] 150 mg/dL High 70-100 [facility] Comment on above: Result Comment: Test performed by glucose meter. Results may be 10%-15% lower than serum/plasma values. (CLIA ID [id number]) Performed By: #### B NP3, CMP3, HEMDF #### [facility] [address] [place] [address] Magnesiumon 12-16-2021 Magnesium [Mass/Vol] 1.3 mg/dL Low 1.6-2.3 [facility] Comment on above: Performed By: #### B GLU #### [facility] [address] [place] [address] Interpretation and review of laboratory results Abnormal [facility] Magnesium [Mass/Vol] 1.3 mg/dL Low 1.6 - 2 .3 mg/dL [facility] Test Performed by [facility], [address] LAB [facility] No Panel Informationon 12-16 Blood Culture, Routine Enterococcus faecalis Abnormal [facility] Interpretation and review of laboratory results Abnormal [facility] Test Performed by [facility], [address] [place] [address] [facility] LAB [facility] POCT GlucoseOrdered By: Andie Cornell on 12-16-2021 Glucose [Mass/Vol] 208 mg/dL High 70 - 100 mg/dL [facility] Comment on above: Test performed by gl ucose meter. Results may be 10%-15% lower than serum/plasma values. (CLIA ID [id number]) Interpretation and review of laboratory results Abnormal [facility] Glucoseon 12-16-2021 Test Performed by [facility], [address] [place], [place] [id number] [place] [address] LAB Glucose [Mass/Vol] 153 mg/dL High 70 - 100 mg/dL [facility] Work Phone: Comment on above: Test performed by gl ucose meter. Results may be 10%-15% lower than serum/plasma values. (CLIA ID [id number]) Interpretation and review of laboratory results Abnormal [facility] Work Phone: Test Performed by [facility], [address] [place], [place] [id number] [place] [address] LAB [facility] Work Phone: Test Performed by [facility], [address] LAB Glucose [Mass/Vol] 150 mg/dL High 70 - 100 mg/dL [facility] Work Phone: Comment on above: Test performed by gl ucose meter. Results may be 10%-15% lower than serum/plasma values. (CLIA ID [id number]) Interpretation and review of laboratory results Abnormal [facility] Work Phone: Test Performed by [facility], [address] LAB [facility] Work Phone: POCT GlucoseOrdered By: Asa Villegas on 12-16-2021 Glucose [Mass/Vol] 169 mg/dL High 70 - 100 mg/dL [facility] Work Phone: Comment on above: Test performed by gl ucose meter. Results may be 10%-15% lower than serum/plasma values. (CLIA ID [id number]) Interpretation and review of laboratory results Abnormal [facility] Work Phone: [facility] Work Phone: CBC with Auto Differentialon [...] - 10.7 10*3/uL [facility] Test Performed by [facility], [address] [place], [place] [address] [facility] LAB [facility] CULTURE URINEon 12-15-2021 CULTURE URINE 1 Organism [...] 1 S Amikacin(CHRISTA) <= 2 S Normal [facility] Comment on above: Performed By: #### B GLU #### [facility] [address] [place] [address] Comp Panel with Mg Reflexon 12-15-2021 ALP [Catalytic activity/Vol] 68 U/L Normal 38-126 [facility] Comment on above: Performed By: #### B GLU #### [facility] [address] [place] [address] ALT [Catalytic activity/Vol] 25 U/L Normal 0-34 [facility] Comment on above: Result Comment: The ALT test is performed by an updated assay method. Please note that the reference intervals have been changed and are now sex specific. Performed By: #### B GLU #### [facility] [address] [place] [address] Calcium [Mass/Vol] 8.7 mg/dL Normal 8.4-10.4 [facility] Comment on above: Performed By: #### B GLU #### [facility] [address] [place] [address] Glucose [Mass/Vol] 212 mg/dL High 70-100 [facility] Comment on above: Performed By: #### B GLU #### [facility] [address] [place] [address] Anion gap [Moles/Vol] 5 mmol/L Normal 3-13 [facility] Comment on above: Performed By: #### B GLU #### [facility] [address] [place] [address] AST [Catalytic activity/Vol] 49 U/L High 15-46 [facility] Comment on above: Performed By: #### B GLU #### [facility] [address] [place] [address] Bilirubin [Mass/Vol] 1.2 mg/dL Normal 0.2-1.3 [facility] Comment on above: Performed By: #### B GLU #### [facility] [address] [place] [address] CO2 [Moles/Vol] 24 mmol/L Normal 22-30 [facility] Comment on above: Performed By: #### B GLU #### [facility] [address] [place] [address] Creatinine [Mass/Vol] 1.20 mg/dL Normal 0.52-1.25 [facility] Comment on above: Performed By: #### B GLU #### [facility] [address] [place] [address] GFR/1.73 sq M.predicted among blacks MDRD (S/P/Bld) [Vol rate/Area] 50.7 mL/min/{1.73_m2} Abnormal >60 [facility] Comment on above: Performed By: #### B GLU #### [facility] [address] [place] [address] GFR/1.73 sq M.predicted among non-blacks MDRD (S/P/Bld) [Vol rate/Area] 43.7 mL/min/{1.73_m2} Abnormal >60 [facility] Comment on above: Result Comment: KDIG [...] secretion. Performed By: #### B GLU #### [facility] [address] [place] [address] Protein [Mass/Vol] 5.9 g/dL Low 6.3-8.2 [facility] Comment on above: Performed By: #### B GLU #### [facility] [address] [place] [address] Urea nitrogen [Mass/Vol] 25 mg/dL High 9-20 [facility] Comment on above: Performed By: #### B GLU #### [facility] [address] [place] [address] Potassium [Moles/Vol] 3.2 mmol/L Low 3.5-5.1 [facility] Comment on above: Performed By: #### B GLU #### [facility] [address] [place] [address] Albumin [Mass/Vol] 2.9 g/dL Low 3.5-5.0 [facility] Comment on above: Performed By: #### B GLU #### [facility] [address] [place] [address] Chloride [Moles/Vol] 103 mmol/L Normal 98-107 [facility] Comment on above: Performed By: #### B GLU #### [facility] [address] [place] [address] Sodium [Moles/Vol] 133 mmol/L Low 135-145 [facility] Comment on above: Performed By: #### B GLU #### [facility] [address] [place] [address] Comprehensive Metabolic Pane l w/ Reflex to MGon 12-15-2021 Albumin [Mass/Vol] 2.9 g/dL Low 3.5 - 5.0 g/dL [facility] ALP (Bld) [Catalytic activity/Vol] 68 U/L 38 - 126 U/L [facility] ALT [Catalytic activity/Vol] 25 U/L 0 - 34 U/L [facility] Comment on above: The ALT test [...] - 1.25 mg/dL [facility] EGFR IF NonAfrican Czech 43.7 mL/min Abnormal >60 [facility] Comment on above: KDIGO guidelines pro vide [...] - 20 mg/dL [facility] Test Performed by [facility], [address] [place] [id number] [place] [address] LAB [facility] Culture, Urineon 12-15-2021 Bacteria identified Cx Nom (U) Escherichia coli Abnormal [facility] Bacteria identified Cx Nom (U) >100,000 CFU/ml [facility] Interpretation and review of laboratory results Abnormal [facility] Test Performed by [address] [address] [facility] LAB [facility] ECHO Complete 2D W Doppler W Coloron 12-15-2021 TRANSTHORACIC ECHOCARDIOGRAM PATIENT: Mikel Winston STUDY DATE: 12/15/2021 : 1945 AGE: 76 HT/WT: 165.1 cm (65 92.1 kg in) (202.6 lb) GENDER: F BP: 140 / 64 LOCATION: [facility] PATIENT [facility] STATUS: *ORDERING PHYSICIAN: * Terence Gonzalez *READING PHYSICIAN: * Aquilino *SENIOR ACCOUNT REPRESENTATIVE: * Florencia Workman RDCS, MD, [facility] AE, [place], [place] INDICATIONS: CHF, Unspecified (I509). [...] ED 2.5 cm/m^2 (more content not included)... [facility] Aquilino Don MD - 12/15/2021 TRANSTHORACIC ECHOCARDIOGRAM PATIENT: Mikel Winston STUDY DATE: 12/15/2021 : 1945 AGE: 76 HT/WT: 165.1 cm (65 92.1 kg in) (202.6 lb) GENDER: F BP: 140 / 64 LOCATION: [facility] PATIENT Inpatient [facility] STATUS: *ORDERING PHYSICIAN: * Terence Gonzalez *READING PHYSICIAN: * Aquilino *SENIOR ACCOUNT REPRESENTATIVE: * Florencia Workman RDCS, MD, [facility], [place], [place] INDICATIONS: CHF, Unspecified (I509). [...] volume, 2-p 3 (more content not included)... [employer] Work Phone: ECHO Complete 2D W Doppler W ColorOrdered By: Aquilino Don on 12-15-2021 [employer] Work Phone: Echo Complete w/wo Contrasto n 12-15-2021 Echo Complete w/wo Contrast Patient Name: MIKEL WINSTON Ultrasound ACCESSION EXAM DATE/TIME PROCEDURE ORDERING PROVIDER [id number] 12/15/2021 13:24 EDT Echo Complete w/wo MD LISA, TERENCE Contrast Reason For Exam (Echo Complete w/wo Contrast) chf Report TRANSTHORACIC ECHOCARDIOGRAM PATIENT: Mikel Winston STUDY DATE: 12/15/2021 : 1945 AGE: 76 HT/WT: 165.1 cm (65 92.1 kg in) (202.6 lb) GENDER: F BP: 140 / 64 LOCATION: [facility] PATIENT Inpatient [facility] STATUS: *ORDERING PHYSICIAN: * Terence Gonzalez *READING PHYSICIAN: * Aquilino *SENIOR ACCOUNT REPRESENTATIVE: * Florencia Workman RDCS, MD, [facility], [place], [place] INDICATIONS: CHF, Unspecified (I509). [...] Stroke volume/bsa, (more content not included)... Normal [facility] Glucose,Bedsideon 12-15-2021 Glucose [Mass/Vol] 215 mg/dL High 70-100 [facility] Comment on above: Result Comment: Test performed by glucose meter. Results may be 10%-15% lower than serum/plasma values. (CLIA ID [id number]) Performed By: #### B NP3, CMP3, HEMDF #### [facility] [address] [place] [address] Glucose [Mass/Vol] 212 mg/dL [facility] 70-100 [facility] Comment on above: Result Comment: Test performed by glucose meter. Results may be 10%-15% lower than serum/plasma values. (CLIA ID [id number]) Performed By: #### B NP3, CMP3, HEMDF #### [facility] [address] [facility] [place] [address] Glucose [Mass/Vol] 185 mg/dL High 70-100 [facility] Comment on above: Result Comment: Test performed by glucose meter. Results may be 10%-15% lower than serum/plasma values. (CLIA ID [id number]) Performed By: #### B GLU #### [facility] [address] [place] [address] Glucose [Mass/Vol] 226 mg/dL High 70-100 [facility] Comment on above: Result Comment: Test performed by glucose meter. Results may be 10%-15% lower than serum/plasma values. (CLIA ID [id number]) Performed By: #### B NP3, CMP3, HEMDF #### [facility] [address] [facility] [place] [address] Hemogram w/ Autodiffon 12-15 Abs Baso Cnt 0.0 10*3/uL Normal 0.0-0.2 [facility] Comment on above: Performed By: #### B GLU #### [facility] [address] [place] [address] Abs Neutrophile Cnt 8.3 10*3/uL High 1.8-7.0 [facility] Comment on above: Performed By: #### B GLU #### [facility] [address] [place] [address] Basophils/100 WBC (Bld) 0.3 % Normal 0.0-2.0 [facility] Comment on above: Performed By: #### B GLU #### [facility] [address] [place] [address] Eosinophils (Bld) [#/Vol] 0.0 10*3/uL Normal 0.0-0.5 [facility] Comment on above: Performed By: #### B GLU #### [facility] [address] [place] [address] Eosinophils/100 WBC (Bld) 0.1 % Low 1.0-6.0 [facility] Comment on above: Performed By: #### B GLU #### [facility] [address] [place] [address] Erythrocyte distribution width (RBC) [Ratio] 13.7 % Normal 11.5-14.5 [facility] Comment on above: Performed By: #### B GLU #### [facility] [address] [place] [address] Granulocytes/100 WBC (Bld) 82.6 % High 40.0-80.0 [facility] Comment on above: Performed By: #### B GLU #### [facility] [address] [place] [address] Hematocrit (Bld) [Volume fraction] 32.0 % Low 35.0-47.0 [facility] Comment on above: Performed By: #### B GLU #### [facility] [address] [place] [address] Hemoglobin (Bld) [Mass/Vol] 10.8 g/dL Low 11.7-16.0 [facility] Comment on above: Performed By: #### B GLU #### [facility] [address] [place] [address] Lymphocytes (Bld) [#/Vol] 0.7 10*3/uL Low 1.0-4.3 [facility] Comment on above: Performed By: #### B GLU #### [facility] [address] [place] [address] Lymphocytes/100 WBC (Bld) 7.3 % Low 20.0-40.0 [facility] Comment on above: Performed By: #### B GLU #### [facility] [address] [place] [address] MCH (RBC) [Entitic mass] 32.6 pg Normal 26.0-34.0 [facility] Comment on above: Performed By: #### B GLU #### [facility] [address] [place] [address] MCHC 33.8 % Normal 32.0-36.0 [facility] Comment on above: Performed By: #### B GLU #### [facility] [address] [place] [address] MCV (RBC) [Entitic vol] 96.4 fL Normal 79.0-98.0 [facility] Comment on above: Performed By: #### B GLU #### [facility] [address] [place] [address] Monocytes (Bld) [#/Vol] 1.0 10*3/uL High 0.0-0.8 [facility] Comment on above: Performed By: #### B GLU #### [facility] [address] [place] [address] Monocytes/100 WBC (Bld) 9.7 % Normal 2.0-10.0 [facility] Comment on above: Performed By: #### B GLU #### [facility] [address] [place] [address] Platelet mean volume (Bld) [Entitic vol] 9.8 fL Normal 7.4-12.4 [facility] Comment on above: Result Comment: MPV is a calculated measurement using platelet volume ratio. Performed By: #### B GLU #### [facility] [address] [place] [address] Platelets (Bld) [#/Vol] 75 10*3/uL Low 140-440 [facility] Comment on above: Performed By: #### B GLU #### [facility] [address] [place] [address] RBC (Bld) [#/Vol] 3.32 10*6/uL Low 3.80-5.20 [facility] Comment on above: Performed By: #### B GLU #### [facility] [address] [place] [address] WBC (Bld) [#/Vol] 10.1 10*3/uL Normal 3.6-10.7 [facility] Comment on above: Performed By: #### B GLU #### [facility] [address] [place] [address] Magnesiumon 12-15-2021 Magnesium [Mass/Vol] 1.2 mg/dL Low 1.6-2.3 [facility] Comment on above: Performed By: #### B GLU #### [facility] [address] [place] [address] Interpretation and review of laboratory results Abnormal [facility] Magnesium [Mass/Vol] 1.2 mg/dL Low 1.6 - 2 .3 mg/dL [facility] Test Performed by [facility], [facility] [address] LAB [facility] POCT GlucoseOrdered By: Zofia Catherine on 12-15-2021 Glucose [Mass/Vol] 215 mg/dL High 70 - 100 mg/dL [facility] Work Phone: Comment on above: Test performed by ucose meter. Results may be 10%-15% lower than serum/plasma values. (CLIA ID [id number]) Interpretation and review of laboratory results Abnormal [facility] Work Phone: [facility] Work Phone: POCT Glucoseon 12-15-2021 Test Performed by [facility], [facility] [address] LAB Glucose [Mass/Vol] 212 mg/dL High 70 - 100 mg/dL [facility] Comment on above: Test performed by gl ucose meter. Results may be 10%-15% lower than serum/plasma values. (CLIA ID [id number]) Interpretation and review of laboratory results Abnormal [facility] Test Performed by [facility], [address] [place], [place] [id number] [place] [address] LAB [facility] Test Performed by [facility], [address] [place], [place] [id number] [place] [address] LAB Glucose [Mass/Vol] 226 mg/dL High 70 - 100 mg/dL [facility] Comment on above: Test performed by gl ucose meter. Results may be 10%-15% lower than serum/plasma values. (CLIA ID [id number]) Interpretation and review of laboratory results Abnormal [facility] Test [facility], [address] [address] [place], [place] [id number] [place] [address] LAB [facility] POCT GlucoseOrdered By: Cara Garcia on 12-15-2021 Glucose [Mass/Vol] 185 mg/dL High 70 - 100 mg/dL [facility] Work Phone: Comment on above: Test performed by gl ucose meter. Results may be 10%-15% lower than serum/plasma values. (CLIA ID [id number]) Interpretation and review of laboratory results Abnormal [facility] Work Phone: [facility] Work Phone: Procalcitoninon 12-15-2021 Procalcitonin 0.55 ng/mL High 0.00-0.09 [facility] Comment on above: Performed By: #### B GLU #### [facility] [address] [place] [address] Interpretation See Below [facility] Comment on above: PCT <0.50 = Low risk of severe sepsis and/or septic shock. PCT >2.00 = High risk of severe sepsis and/or septic shock. Interpretation and review of laboratory results Abnormal [facility] Procalcitonin 0.55 ng/mL High 0.00 - 0.09 ng/mL [facility] Test Performed by [facility], [address] [place] [id number] [facility] Add On Lab Teston 12-14-2021 Add On Accepted [facility] Comment on above: Specimen available & acceptable for analysis. Add on test from HISon 12-14 Add on test from HIS Accepted Normal [facility] Comment on above: Result Comment: Spec imen available & acceptable for analysis. Performed By: #### B NP3, CMP3, HEMDF #### [facility] [address] [place] [address] Brain Natriuretic Peptideon 12-14-2021 Interpretation and review of laboratory results Abnormal [facility] Natriuretic peptide B (Bld) [Mass/Vol] 43576 pg/mL High 0 - 450 pg/mL [facility] Test Performed by [facility], [address], [address] LAB [facility] CBC with Auto Differentialon 12-14-2021 [...] (Stl) 12.5 g/dL 11.7 - 16.0 g/dL [facility] Interpretation and review of laboratory results [...] - 10.7 10*3/uL [facility] Test Performed by [facility], [address] [place], [place] [id number] [place] [address] LAB [facility] Absolute Baso # 0.0 10*3/uL [...] 10.7 10*3/uL [facility] CR Chest Portableon 12-15-19 CR Chest Portable Patient Name: MIKEL WINSTON Diagnostic Radiology ACCESSION EXAM DATE/TIME PROCEDURE ORDERING PROVIDER [id number] 12/14/2021 18:24 EDT CR Chest Portable MD GONZALEZ PRAMOD CPT code 98332 Reason For Exam (CR Chest Portable) SOB [...] Transcribed Date and Time: 12/14/2021 7:10 Normal [facility] Comp Metabolic Panelon 12-14 ALP [Catalytic activity/Vol] 94 U/L Normal 38-126 [facility] Comment on above: Performed By: #### B GLU #### [facility] [address] [place] [address] ALT [Catalytic activity/Vol] 32 U/L Normal 0-34 [facility] Comment on above: Result Comment: The ALT test is performed by an updated assay method. Please note that the reference intervals have been changed and are now sex specific. Performed By: #### B GLU #### [facility] [address] [place] [address] AST [Catalytic activity/Vol] 63 U/L High 15-46 [facility] Comment on above: Performed By: #### B GLU #### [facility] [address] [place] [address] Bilirubin [Mass/Vol] 1.4 mg/dL High 0.2-1.3 [facility] Comment on above: Performed By: #### B GLU #### [facility] [address] [place] [address] Calcium [Mass/Vol] 9.2 mg/dL Normal 8.4-10.4 [facility] Comment on above: Performed By: #### B GLU #### [facility] [address] [place] [address] Glucose [Mass/Vol] 211 mg/dL High 70-100 [facility] Comment on above: Performed By: #### B GLU #### [facility] [address] [place] [address] Protein [Mass/Vol] 7.0 g/dL Normal 6.3-8.2 [facility] Comment on above: Performed By: #### B GLU #### [facility] [address] [place] [address] Urea nitrogen [Mass/Vol] 24 mg/dL High 9-20 [facility] Comment on above: Performed By: #### B GLU #### [facility] [address] [place] [address] Anion gap [Moles/Vol] 7 mmol/L Normal 3-13 [facility] Comment on above: Performed By: #### B GLU #### [facility] [address] [place] [address] CO2 [Moles/Vol] 21 mmol/L Low 22-30 [facility] Comment on above: Performed By: #### B GLU #### [facility] [address] [place] [address] Creatinine [Mass/Vol] 1.03 mg/dL Normal 0.52-1.25 [facility] Comment on above: Performed By: #### B GLU #### [facility] [address] [place] [address] GFR/1.73 sq M.predicted among blacks MDRD (S/P/Bld) [Vol rate/Area] 61.0 mL/min/{1.73_m2} Normal >60 [facility] Comment on above: Performed By: #### B GLU #### [facility] [address] [place] [address] GFR/1.73 sq M.predicted among non-blacks MDRD (S/P/Bld) [Vol rate/Area] 52.6 mL/min/{1.73_m2} Abnormal >60 [facility] Comment on above: Result Comment: KDIG [...] secretion. Performed By: #### B GLU #### [facility] [address] [place] [address] Albumin [Mass/Vol] 3.5 g/dL Normal 3.5-5.0 [facility] Comment on above: Performed By: #### B GLU #### [facility] [address] [place] [address] Potassium [Moles/Vol] 3.8 mmol/L Normal 3.5-5.1 [facility] Comment on above: Performed By: #### B GLU #### [facility] [address] [place] [address] Sodium [Moles/Vol] 136 mmol/L Normal 135-145 [facility] Comment on above: Performed By: #### B GLU #### [facility] [address] [place] [address] Chloride [Moles/Vol] 108 mmol/L High 98-107 [facility] Comment on above: Performed By: #### B GLU #### [facility] [address] [place] [address] Comp Panel with Mg Reflexon 12-14-2021 ALP [Catalytic activity/Vol] 56 U/L Normal 38-126 [facility] Comment on above: Order Comment: SLIGH T HEMOLYSIS Performed By: #### B GLU #### [facility] [address] [place] [address] ALT [Catalytic activity/Vol] 26 U/L Normal 0-34 [facility] Comment on above: Order Comment: SLIGH T HEMOLYSIS Result Comment: The ALT test is performed by an updated assay method. Please note that the reference intervals have been changed and are now sex specific. Performed By: #### B GLU #### [facility] [address] [place] [address] Calcium [Mass/Vol] 9.3 mg/dL Normal 8.4-10.4 [facility] Comment on above: Order Comment: SLIGH T HEMOLYSIS Performed By: #### B GLU #### [facility] [address] [place] [address] Glucose [Mass/Vol] 157 mg/dL High 70-100 [facility] Comment on above: Order Comment: SLIGH T HEMOLYSIS Performed By: #### B GLU #### [facility] [address] [place] [address] Urea nitrogen [Mass/Vol] 29 mg/dL High 9-20 [facility] Comment on above: Order Comment: SLIGH T HEMOLYSIS Performed By: #### B GLU #### [facility] [address] [place] [address] Anion gap [Moles/Vol] 7 mmol/L Normal 3-13 [facility] Comment on above: Order Comment: SLIGH T HEMOLYSIS Performed By: #### B GLU #### [facility] [address] [place] [address] AST [Catalytic activity/Vol] 53 U/L High 15-46 [facility] Comment on above: Order Comment: SLIGH T HEMOLYSIS Performed By: #### B GLU #### [facility] [address] [place] [address] Bilirubin [Mass/Vol] 1.9 mg/dL High 0.2-1.3 [facility] Comment on above: Order Comment: SLIGH T HEMOLYSIS Performed By: #### B GLU #### [facility] [address] [place] [address] CO2 [Moles/Vol] 21 mmol/L Low 22-30 [facility] Comment on above: Order Comment: SLIGH T HEMOLYSIS Performed By: #### B GLU #### [facility] [address] [place] [address] Creatinine [Mass/Vol] 0.97 mg/dL Normal 0.52-1.25 [facility] Comment on above: Order Comment: SLIGH T HEMOLYSIS Performed By: #### B GLU #### [facility] [address] [place] [address] GFR/1.73 sq M.predicted among blacks MDRD (S/P/Bld) [Vol rate/Area] 65.6 mL/min/{1.73_m2} Normal >60 [facility] Comment on above: Order Comment: SLIGH T HEMOLYSIS Performed By: #### B GLU #### [facility] [address] [place] [address] GFR/1.73 sq M.predicted among non-blacks MDRD (S/P/Bld) [Vol rate/Area] 56.6 mL/min/{1.73_m2} Abnormal >60 [facility] Comment on above: Order Comment: SLIGH [...] secretion. Performed By: #### B GLU #### [facility] [address] [place] [address] Protein [Mass/Vol] 6.2 g/dL Low 6.3-8.2 [facility] Comment on above: Order Comment: SLIGH T HEMOLYSIS Performed By: #### B GLU #### [facility] [address] [place] [address] Potassium [Moles/Vol] 3.6 mmol/L Normal 3.5-5.1 [facility] Comment on above: Order Comment: SLIGH T HEMOLYSIS Performed By: #### B GLU #### [facility] [address] [place] [address] Sodium [Moles/Vol] 139 mmol/L Normal 135-145 [facility] Comment on above: Order Comment: SLIGH T HEMOLYSIS Performed By: #### B GLU #### [facility] [address] [place] [address] Albumin [Mass/Vol] 3.2 g/dL Low 3.5-5.0 [facility] Comment on above: Order Comment: SLIGH T HEMOLYSIS Performed By: #### B GLU #### [facility] [address] [place] [address] Chloride [Moles/Vol] 111 mmol/L High 98-107 [facility] Comment on above: Order Comment: SLIGH T HEMOLYSIS Performed By: #### B GLU #### [facility] [address] [place] [address] Comprehensive Metabolic Pane smith 12-14-2021 Albumin [Mass/Vol] 3.5 g/dL 3.5 - 5.0 g/dL [facility] ALP (Bld) [Catalytic activity/Vol] 94 U/L 38 - 126 U/L [facility] ALT [Catalytic activity/Vol] 32 U/L 0 - 34 U/L [facility] Comment on above: The ALT test [...] - 1.25 mg/dL [facility] EGFR IF NonAfrican Czech 52.6 mL/min Abnormal >60 [facility] Comment on [...] [Mass/Vol] 0.97 mg/dL 0.52 - 1.25 mg/dL [facility] EGFR IF NonAfrican Czech 56.6 mL/min Abnormal >60 [facility] Comment on above: KDIGO guidelines pro vide [...] MDRD (S/P/Bld) [Vol rate/Area] 65.6 mL/min/{1.73_m2} >60 [facility] Glucose [Mass/Vol] 157 mg/dL High 70 - 100 mg/dL [facility] Interpretation and review of laboratory results Abnormal [facility] Potassium [Moles/Vol] 3.6 mmol/L 3.5 - 5.1 mmol/L [facility] Sodium [Moles/Vol] 139 mmol/L 135 - 145 mmol/L [facility] Urea nitrogen (BldV) [Mass/Vol] 29 mg/dL High 9 - 20 mg/dL [facility] Test Performed by [facility], [address] [place], [place] [address] SLIGHT HEMOLYSIS [facility] Glucose,Bedsideon 12-14-2021 Glucose [Mass/Vol] 163 mg/dL High 70-100 [facility] Comment on above: Result Comment: Test performed by glucose meter. Results may be 10%-15% lower than serum/plasma values. (CLIA ID [id number]) Performed By: #### B GLU #### [facility] [address] [place] [address] Glucose [Mass/Vol] 214 mg/dL High 70-100 [facility] Comment on above: Result Comment: Test performed by glucose meter. Results may be 10%-15% lower than serum/plasma values. (CLIA ID [id number]) Performed By: #### B NP3, CMP3, HEMDF #### [facility] [address] [place] [address] Glucose [Mass/Vol] 146 mg/dL High 70-100 [facility] Comment on above: Result Comment: Test performed by glucose meter. Results may be 10%-15% lower than serum/plasma values. (CLIA ID [id number]) Performed By: #### B GLU #### [facility] [address] [place] [address] Hemogram w/ Autodiffon 12-14 Abs Baso Cnt 0.0 10*3/uL Normal 0.0-0.2 [facility] Comment on above: Performed By: #### B GLU #### [facility] [address] [place] [address] Abs Neutrophile Cnt 7.7 10*3/uL High 1.8-7.0 [facility] Comment on above: Performed By: #### B GLU #### [facility] [address] [place] [address] Basophils/100 WBC (Bld) 0.5 % Normal 0.0-2.0 [facility] Comment on above: Performed By: #### B GLU #### [facility] [address] [place] [address] Eosinophils (Bld) [#/Vol] 0.1 10*3/uL Normal 0.0-0.5 [facility] Comment on above: Performed By: #### B GLU #### [facility] [address] [place] [address] Eosinophils/100 WBC (Bld) 1.3 % Normal 1.0-6.0 [facility] Comment on above: Performed By: #### B GLU #### [place] [address] [place] [address] Erythrocyte distribution width (RBC) [Ratio] 13.8 % Normal 11.5-14.5 [facility] Comment on above: Performed By: #### B GLU #### [facility] [address] [place] [address] Granulocytes/100 WBC (Bld) 79.5 % Normal 40.0-80.0 [facility] Comment on above: Performed By: #### B GLU #### [facility] [address] [place] [address] Hematocrit (Bld) [Volume fraction] 37.2 % Normal 35.0-47.0 [facility] Comment on above: Performed By: #### B GLU #### [facility] [address] [place] [address] Hemoglobin (Bld) [Mass/Vol] 12.5 g/dL Normal 11.7-16.0 [facility] Comment on above: Performed By: #### B GLU #### [facility] [address] [place] [address] Lymphocytes (Bld) [#/Vol] 0.7 10*3/uL Low 1.0-4.3 [facility] Comment on above: Performed By: #### B GLU #### [facility] [address] [place] [address] Lymphocytes/100 WBC (Bld) 7.5 % Low 20.0-40.0 [facility] Comment on above: Performed By: #### B GLU #### [facility] [address] [place] [address] MCH (RBC) [Entitic mass] 33.3 pg Normal 26.0-34.0 [facility] Comment on above: Performed By: #### B GLU #### [facility] [address] [place] [address] MCHC 33.7 % Normal 32.0-36.0 [facility] Comment on above: Performed By: #### B GLU #### [facility] [address] [place] [address] MCV (RBC) [Entitic vol] 98.9 fL High 79.0-98.0 [facility] Comment on above: Performed By: #### B GLU #### [facility] [address] [place] [address] Monocytes (Bld) [#/Vol] 1.1 10*3/uL High 0.0-0.8 [facility] Comment on above: Performed By: #### B GLU #### [facility] [address] [place] [address] Monocytes/100 WBC (Bld) 11.2 % High 2.0-10.0 [facility] Comment on above: Performed By: #### B GLU #### [facility] [address] [place] [address] Platelet mean volume (Bld) [Entitic vol] 10.5 fL Normal 7.4-12.4 [facility] Comment on above: Result Comment: MPV is a calculated measurement using platelet volume ratio. Performed By: #### B GLU #### [facility] [address] [place] [address] Platelets (Bld) [#/Vol] 85 10*3/uL Low 140-440 [facility] Comment on above: Performed By: #### B GLU #### [facility] [address] [place] [address] RBC (Bld) [#/Vol] 3.76 10*6/uL Low 3.80-5.20 [facility] Comment on above: Performed By: #### B GLU #### [facility] [address] [place] [address] WBC (Bld) [#/Vol] 9.7 10*3/uL Normal 3.6-10.7 [facility] Comment on above: Performed By: #### B GLU #### [facility] [address] [place] [address] Platelets (Bld) [#/Vol] 95 10*3/uL Low 140-440 [facility] Comment on above: Result Comment: Occa sional fibrin strands noted on smear, no clot detected in tube, may affect plate count, suggest repeat draw. Performed By: #### B GLU #### [facility] [address] [place] [address] Abs Baso Cnt 0.0 10*3/uL Normal 0.0-0.2 [facility] Comment on above: Performed By: #### B GLU #### [facility] [address] [place] [address] Abs Neutrophile Cnt 7.8 10*3/uL High 1.8-7.0 [facility] Comment on above: Performed By: #### B GLU #### [facility] [address] [place] [address] Basophils/100 WBC (Bld) 0.4 % Normal 0.0-2.0 [facility] Comment on above: Performed By: #### B GLU #### [facility] [address] [place] [address] Eosinophils (Bld) [#/Vol] 0.0 10*3/uL Normal 0.0-0.5 [facility] Comment on above: Performed By: #### B GLU #### [facility] [address] [place] [address] Eosinophils/100 WBC (Bld) 0.5 % Low 1.0-6.0 [facility] Comment on above: Performed By: #### B GLU #### [facility] [address] [place] [address] Erythrocyte distribution width (RBC) [Ratio] 14.0 % Normal 11.5-14.5 [facility] Comment on above: Performed By: #### B GLU #### [facility] [address] [place] [address] Granulocytes/100 WBC (Bld) 82.9 % High 40.0-80.0 [facility] Comment on above: Performed By: #### B GLU #### [facility] [address] [place] [address] Hematocrit (Bld) [Volume fraction] 30.4 % Low 35.0-47.0 [facility] Comment on above: Performed By: #### B GLU #### [facility] [address] [place] [address] Hemoglobin (Bld) [Mass/Vol] 10.6 g/dL Low 11.7-16.0 [facility] Comment on above: Performed By: #### B GLU #### [facility] [address] [place] [address] Lymphocytes (Bld) [#/Vol] 0.7 10*3/uL Low 1.0-4.3 [facility] Comment on above: Performed By: #### B GLU #### [facility] [address] [place] [address] Lymphocytes/100 WBC (Bld) 7.5 % Low 20.0-40.0 [facility] Comment on above: Performed By: #### B GLU #### [facility] [address] [place] [address] MCH (RBC) [Entitic mass] 34.0 pg Normal 26.0-34.0 [facility] Comment on above: Performed By: #### B GLU #### [facility] [address] [place] [address] MCHC 34.8 % Normal 32.0-36.0 [facility] Comment on above: Performed By: #### B GLU #### [facility] [address] [place] [address] MCV (RBC) [Entitic vol] 97.9 fL Normal 79.0-98.0 [facility] Comment on above: Performed By: #### B GLU #### [facility] [address] [place] [address] Monocytes (Bld) [#/Vol] 0.8 10*3/uL Normal 0.0-0.8 [facility] Comment on above: Performed By: #### B GLU #### [facility] [address] [place] [address] Monocytes/100 WBC (Bld) 8.7 % Normal 2.0-10.0 [facility] Comment on above: Performed By: #### B GLU #### [facility] [address] [place] [address] Platelet mean volume (Bld) [Entitic vol] 10.5 fL Normal 7.4-12.4 [facility] Comment on above: Result Comment: MPV is a calculated measurement using platelet volume ratio. Performed By: #### B GLU #### [facility] [address] [place] [address] RBC (Bld) [#/Vol] 3.11 10*6/uL Low 3.80-5.20 [facility] Comment on above: Performed By: #### B GLU #### [facility] [address] [place] [address] WBC (Bld) [#/Vol] 9.4 10*3/uL Normal 3.6-10.7 [facility] Comment on above: Performed By: #### B GLU #### [facility] [address] [place] [address] Lactic Acidon 12-14-2021 Lactate [Moles/Vol] 1.6 mmol/L Normal 0.7-2.0 [facility] Comment on above: Performed By: #### B GLU #### [facility] [address] [place] [address] Lactate [Moles/Vol] 1.6 mmol/L 0.7 - 2. 0 mmol/L [facility] Lactic Acid, Sepsison 2021 Lactate [Moles/Vol] 1.7 mmol/L Normal 0.7-2.0 [facility] Comment on above: Performed By: #### B GLU #### [facility] [address] [place] [address] NT pro BNPon 12-14-2021 Natriuretic peptide B (Bld) [Mass/Vol] 830[address] pg/mL High 0-450 [facility] Comment on above: Performed By: #### B GLU #### [facility] [address] [place] [address] No Panel Informationon 12-14 Test Performed by [facility], [address] [place], [place] [id number] [place] [address] LAB [facility] Test Performed by [facility], [address] [place], [place] [id number] [place] [address] LAB [facility] PO[facility] Glucoseon 12-14-2021 Glucose [Mass/Vol] 163 mg/dL High 70 - 100 mg/dL [facility] Comment on above: Test performed by gl ucose meter. Results may be 10%-15% lower than serum/plasma values. (CLIA ID [id number]) Interpretation and review of laboratory results Abnormal [facility] Test Performed by [facility], [address] [place], [place], [place] [id number] [place] [address] LAB [facility] Glucose [Mass/Vol] 214 mg/dL High 70 - 100 mg/dL [facility] Comment on above: Test performed by gl ucose meter. Results may be 10%-15% lower than serum/plasma values. (CLIA ID [id number]) Interpretation and review of laboratory results Abnormal [facility] Test Performed by [facility], [address] LAB [facility] Test Performed by [facility], [address] LAB POCT GlucoseOrdered By: Robe Villegas on 12-14-2021 Glucose [Mass/Vol] 146 mg/dL High 70 - 100 mg/dL [facility] Work Phone: Comment on above: Test performed by gl ucose meter. Results may be 10%-15% lower than serum/plasma values. (CLIA ID [id number]) Interpretation and review of laboratory results Abnormal [facility] Work Phone: [facility] Work Phone: Procalcitoninon 12-14-2021 Interpretation See Below Normal [facility] Comment on above: Result Comment: PCT <0.50 = Low risk of severe sepsis and/or septic shock. PCT >2.00 = High risk of severe sepsis and/or septic shock. Performed By: #### B GLU #### [facility] [address] [place] [address] RBC MORPHOLOGYon 12-14-2021 RBC (Bld) [#/Vol] Normal [facility] RBC Morphologyon 12-14-2021 RBC morphology finding Nom (Bld) Normal Normal [facility] Comment on above: Performed By: #### B GLU #### [facility] [address] [place] [address] VL LOWER EXTREMITY BILATERAL VENOUS DUPLEXon 12-14-2021 [facility] Lower Extremity Venous Duplex Report Patient DO RavindraB: 1945 Study 12/14/2021 Name: Mikel Davis (76yrs) Date: Age: 76 Account: [id number] Gender: F Loc: 260 BP: Ordering Physician: Terence Gonzalez Pit Shoveler: Adrienne Williamson RDMS, RVT Interpreting Physician: Clinton Dove MD Location: [facility] Indications: Edema of the bilateral legs. [...] supine position. Images were obtained using a [email or web address] vascular ultrasound machine. The study was technically [...] + + ------+-------+--- (more content not included)... [facility] Clinton Dove MD - 12/14/2021 [facility] Lower Extremity Venous Duplex Report Patient Ravindra CYRIL: 1945 Study 12/14/2021 Name: Mikel Davis (76yrs) Date: Age: 76 Account: [id number] Gender: F Loc: 260 BP: Ordering Physician: Terence Gonzalez Pit Shoveler: Adrienne Williamson RDMS, RVT Interpreting Physician: Clinton Dove MD Location: [facility] Indications: Edema of the bilateral legs. [...] supine position. Images were obtained using a [email or web address] vascular ultrasound machine. The study was technically [...] +L soleal +Trent (more content not included)... [employer] Work Phone: VL LOWER EXTREMITY BILATERAL VENOUS DUPLEXOrdered By: Clinton Dove on 12-14-2021 [employer] Work Phone: VL Venous Duplex US Lower Ex t Bilateralon 12-14-2021 VL Venous Duplex US Lower Ext Bilateral Patient Name: MIKEL WINSTON Ultrasound ACCESSION EXAM DATE/TIME PROCEDURE ORDERING PROVIDER [id number] 12/14/2021 09:44 EDT VL Venous Duplex US MD LISA, TERENCE Lower Ext Bilateral CPT code 42725 Reason For Exam (VL Venous Duplex US Lower Ext Bilateral) LE edema Report [facility] Lower Extremity Venous Duplex Report Patient Ravindra : 1945 Study 12/14/2021 Name: Mikel Davis (76yrs) Date: Age: 76 Account: [id number] Gender: F Loc: 260 BP: Ordering Physician: Terence Gonzalez Pit Shoveler: Adrienne Williamson RDMS, RVT Interpreting Physician: Clinton Dove MD Location: [facility] Indications: Edema of the bilateral legs. [...] supine position. Images were obtained using a [email or web address] vascular ultrasound machine. Ultrasound Report The study [...] + ------+-------+----- ----- (more content not included)... [facility] X[facility] CHEST PORTABLEon 12-15-19 Patient Name: MIKEL WINSTON Diagnostic Radiology ACCESSION EXAM DATE/TIME PROCEDURE ORDERING PROVIDER [id number] 12/14/2021 18:24 EDT CR Chest Portable MD GONZALEZ PRAMOD CPT code 30169 Reason For Exam (CR Chest Portable) SOB [...] R Transcribed Date and Time: 12/14/2021 7:10 [facility] Clinton Serna MD - 12/14/2021 Patient Name: MIKEL WINSTON Diagnostic Radiology ACCESSION EXAM DATE/TIME PROCEDURE ORDERING PROVIDER [id number] 12/14/2021 18:24 EDT CR Chest Portable MD GONZALEZ PRAMOD CPT code 13779 Reason For Exam (CR Chest Portable) SOB [...] R Transcribed Date and Time: 12/14/2021 7:10 [facility] Work Phone: Radiology Study observation (narrative) [facility] Work Phone: XR CHEST PORTABLEOrdered By: Clinton Serna on 12-14-2021 [facility] Work Phone: Add On Lab Teston 12-13-2021 Add On Accepted [facility] Comment on above: Specimen available & acceptable for analysis. Test Performed by [facility], [facility] [address] [place], [place] [id number] [place] [address] LAB [facility] Add on test from HISon 12-13 Add on test from HIS Accepted Normal [facility] Comment on above: Result Comment: Spec imen available & acceptable for analysis. Performed By: #### A DDON #### [facility] [address] [place] [address] Basic Metabolic Panelon 05-0 Calcium [Mass/Vol] 10.3 mg/dL Normal 8.4-10.4 [facility] Comment on above: Performed By: #### B NP3, CMP3, HEMDF #### [facility] [address] [place] [address] Glucose [Mass/Vol] 181 mg/dL High 70-100 [facility] Comment on above: Performed By: #### B NP3, CMP3, HEMDF #### [facility] [address] [place] [address] Urea nitrogen [Mass/Vol] 34 mg/dL High 9-20 [facility] Comment on above: Performed By: #### B NP3, CMP3, HEMDF #### [facility] [address] [place] [address] Anion gap [Moles/Vol] 9 mmol/L Normal 3-13 [facility] Comment on above: Performed By: #### B NP3, CMP3, HEMDF #### [facility] [address] [place] [address] CO2 [Moles/Vol] 23 mmol/L Normal 22-30 [facility] Comment on above: Performed By: #### B NP3, CMP3, HEMDF #### [facility] [address] [place] [address] Creatinine [Mass/Vol] 1.22 mg/dL Normal 0.52-1.25 [facility] Comment on above: Performed By: #### B NP3, CMP3, HEMDF #### [facility] [address] [place] [address] GFR/1.73 sq M.predicted among blacks MDRD (S/P/Bld) [Vol rate/Area] 49.7 mL/min/{1.73_m2} Abnormal >60 [facility] Comment on above: Performed By: #### B NP3, CMP3, HEMDF #### [facility] [address] [place] [address] GFR/1.73 sq M.predicted among non-blacks MDRD (S/P/Bld) [Vol rate/Area] 42.9 mL/min/{1.73_m2} Abnormal >60 [facility] Comment on above: Result Comment: KDIG [...] By: #### B NP3, CMP3, HEMDF #### [facility] [address] [place] [address] Potassium [Moles/Vol] 3.7 mmol/L Normal 3.5-5.1 [facility] Comment on above: Performed By: #### B NP3, CMP3, HEMDF #### [facility] [address] [place] [address] Chloride [Moles/Vol] 110 mmol/L High 98-107 [facility] Comment on above: Performed By: #### B NP3, CMP3, HEMDF #### [facility] [address] [place] [address] Sodium [Moles/Vol] 141 mmol/L Normal 135-145 [facility] Comment on above: Performed By: #### B NP3, CMP3, HEMDF #### [facility] [address] [place] [address] Anion gap [Moles/Vol] 9 mmol/L 3 - 13 mmol/L [facility] Calcium [Mass/Vol] 10.3 mg/dL 8.4 - 10. 4 mg/dL [facility] Chloride [Moles/Vol] 110 mmol/L High 98 - 10 7 mmol/L [facility] CO2 [Moles/Vol] 23 mmol/L 22 - 30 mmol/L [facility] Creatinine [Mass/Vol] 1.22 mg/dL 0.52 - 1.25 mg/dL [facility] EGFR IF NonAfrican Czech 42.9 mL/min Abnormal >60 [facility] Comment on above: KDIGO guidelines pro vide [...] - 20 mg/dL [facility] Test Performed by [facility], [address] [place] [id number] [place] [address] LAB [facility] CBC with Auto Differentialon 12-13-2021 Absolute Baso [...] 15.1 10*3/uL High 3.6 - 10.7 10*3/uL [facility] Test Performed by [facility], [address] LAB [facility] CT Head WO Contraston 2021 Patient Name: MIKEL WINSTON Computed Tomography ACCESSION EXAM DATE/TIME PROCEDURE ORDERING PROVIDER [id number] 12/13/2021 12:[address] Head or Brain w/o [id number] -Linda JOHN Contrast CPT code 48506 Reason For Exam (CT Head or Brain [...] R Transcribed Date and Time: 12/13/2021 12:53 Shemar England MD - 12/13/2021 Patient Name: MIKEL WINSTON Computed Tomography ACCESSION EXAM DATE/TIME PROCEDURE ORDERING PROVIDER [id number] 12/13/2021 12:[address] Head or Brain w/o [id number] -ALVARO, Linda Contrast CPT code 71107 Reason For Exam (CT Head or Brain [...] R Transcribed Date and Time: 12/13/2021 12:53 [facility] Work Phone: Radiology Study observation (narrative) [facility] Work Phone: CT Head WO ContrastOrdered B y: Shemar Teresa on 12-13-2021 [facility] Work Phone: CT Head or Brain w/o Contras ton 12-13-2021 CT Head or Brain w/o Contrast Patient Name: MIKEL WINSTON Computed Tomography ACCESSION EXAM DATE/TIME PROCEDURE ORDERING PROVIDER [id number] 12/13/2021 12:[address] Head or Brain w/o [id number] -ALVARO, Linda Contrast CPT code 77558 Reason For Exam (CT Head or Brain [...] Transcribed Date and Time: 12/13/2021 12:53 Normal [facility] Complete Urinalysison 2021 Appearance (U) Clear Normal Clear [facility] Comment on above: Result Comment: . Performed By: #### B GLU #### [facility] [address] [place] [address] Bacteria Moderate Abnormal Negative [facility] Comment on above: Result Comment: . Performed By: #### B GLU #### [facility] [address] [place] [address] Bilirubin,Urine Negative Normal Negative [facility] Comment on above: Result Comment: . Performed By: #### B GLU #### [facility] [address] [place] [address] Color (U) Yellow Normal Lt. Yellow [facility] Comment on above: Result Comment: . Performed By: #### B GLU #### [facility] [address] [place] [address] Glucose Ql (U) Normal Normal Normal (<70) [facility] Comment on above: Result Comment: . Performed By: #### B GLU #### [facility] [address] [place] [address] Ketone,Urine Negative Normal Negative [facility] Comment on above: Result Comment: . Performed By: #### B GLU #### [facility] [address] [place] [address] Leukocytes,Urine Negative Normal Negative [facility] Comment on above: Result Comment: . Performed By: #### B GLU #### [place] [address] [place] [address] Mucous Threads Few Normal Negative [facility] Comment on above: Result Comment: . Performed By: #### B GLU #### [facility] [address] [place] [address] Nitrites,Urine Negative Normal Negative [facility] Comment on above: Result Comment: . Performed By: #### B GLU #### [facility] [address] [place] [address] Occult Blood,Urine Negative Normal Negative [facility] Comment on above: Result Comment: . Performed By: #### B GLU #### [facility] [address] [place] [address] pH,Urine 5.0 Normal 5.0-8.0 [facility] Comment on above: Result Comment: . Performed By: #### B GLU #### [facility] [address] [place] [address] Protein (U) [Mass/Vol] 10 mg/dL Abnormal Negative [facility] Comment on above: Result Comment: . Performed By: #### B GLU #### [facility] [address] [place] [address] RBC, Urine 0 - 2 Normal 0-2 [facility] Comment on above: Result Comment: . Performed By: #### B GLU #### [facility] [address] [place] [address] Specific Amity,Urine 1.023 Normal 1.005 - 1.030 [facility] Comment on above: Result Comment: . Performed By: #### B GLU #### [facility] [address] [place] [address] Squamous Epithelial 0 - 2 Normal 3-5 [facility] Comment on above: Result Comment: . Performed By: #### B GLU #### [facility] [address] [place] [address] Uric Acid Crystals Few Abnormal Negative [facility] Comment on above: Result Comment: . Performed By: #### B GLU #### [facility] [address] [place] [address] Urobilinogen,Urine Normal Normal Normal (0-1) [facility] Comment on above: Result Comment: . Performed By: #### B GLU #### [facility] [address] [place] [address] WBC, Urine 0 - 2 Normal 0-5 [facility] Comment on above: Result Comment: . Performed By: #### B GLU #### [facility] [address] [place] [address] ED Provider Noteon ED Provider Note [facility] ED EMERGENCY DEPARTMENT ENCOUNTER Pt Name: Mikel Winston Birthdate 1945 Date of evaluation: 12/13/2021 Provider: Linda John MD CHIEF COMPLAINT Chief Complaint Patient presents [...] and Family: Not on file ? Attends [employer]: Not on file ? Active Member [...] (!) 146/6 (more content not included)... Normal [facility] Glucose,Bedsideon 12-13-2021 Glucose [Mass/Vol] 217 mg/dL High 70-100 [facility] Comment on above: Result Comment: Test performed by glucose meter. Results may be 10%-15% lower than serum/plasma values. (CLIA ID [id number]) Performed By: #### B GLU #### [facility] [address] [place] [address] Glucose [Mass/Vol] 176 mg/dL High 70-100 [facility] Comment on above: Result Comment: Test performed by glucose meter. Results may be 10%-15% lower than serum/plasma values. (CLIA ID [id number]) Performed By: #### B GLU #### [facility] [address] [place] [address] Hemogram w/ Autodiffon 12-13 Abs Baso Cnt 0.1 10*3/uL Normal 0.0-0.2 [facility] Comment on above: Performed By: #### B NP3, CMP3, HEMDF #### [facility] [address] [place] [address] Abs Neutrophile Cnt 13.0 10*3/uL High 1.8-7.0 [facility] Comment on above: Performed By: #### B NP3, CMP3, HEMDF #### [facility] [address] [place] [address] Basophils/100 WBC (Bld) 0.5 % Normal 0.0-2.0 [facility] Comment on above: Performed By: #### B NP3, CMP3, HEMDF #### [facility] [address] [place] [address] Eosinophils (Bld) [#/Vol] 0.0 10*3/uL Normal 0.0-0.5 [facility] Comment on above: Performed By: #### B NP3, CMP3, HEMDF #### [facility] [address] [place] [address] Eosinophils/100 WBC (Bld) 0.0 % Low 1.0-6.0 [facility] Comment on above: Performed By: #### B NP3, CMP3, HEMDF #### [facility] [address] [place] [address] Erythrocyte distribution width (RBC) [Ratio] 13.4 % Normal 11.5-14.5 [facility] Comment on above: Performed By: #### B NP3, CMP3, HEMDF #### [facility] [address] [place] [address] Granulocytes/100 WBC (Bld) 85.9 % High 40.0-80.0 [facility] Comment on above: Performed By: #### B NP3, CMP3, HEMDF #### [facility] [address] [place] [address] Hematocrit (Bld) [Volume fraction] 34.3 % Low 35.0-47.0 [facility] Comment on above: Performed By: #### B NP3, CMP3, HEMDF #### [facility] [address] [place] [address] Hemoglobin (Bld) [Mass/Vol] 11.7 g/dL Normal 11.7-16.0 [facility] Comment on above: Performed By: #### B NP3, CMP3, HEMDF #### [facility] [address] [place] [address] Lymphocytes (Bld) [#/Vol] 0.7 10*3/uL Low 1.0-4.3 [facility] Comment on above: Performed By: #### B NP3, CMP3, HEMDF #### [facility] [address] [place] [address] Lymphocytes/100 WBC (Bld) 4.3 % Low 20.0-40.0 [facility] Comment on above: Performed By: #### B NP3, CMP3, HEMDF #### [facility] [address] [place] [address] MCH (RBC) [Entitic mass] 32.9 pg Normal 26.0-34.0 [facility] Comment on above: Performed By: #### B NP3, CMP3, HEMDF #### [facility] [address] [place] [address] MCHC 34.1 % Normal 32.0-36.0 [facility] Comment on above: Performed By: #### B NP3, CMP3, HEMDF #### [facility] [address] [place] [address] MCV (RBC) [Entitic vol] 96.6 fL Normal 79.0-98.0 [facility] Comment on above: Performed By: #### B NP3, CMP3, HEMDF #### [facility] [address] [place] [address] Monocytes (Bld) [#/Vol] 1.4 10*3/uL High 0.0-0.8 [facility] Comment on above: Performed By: #### B NP3, CMP3, HEMDF #### [facility] [address] [place] [address] Monocytes/100 WBC (Bld) 9.3 % Normal 2.0-10.0 [facility] Comment on above: Performed By: #### B NP3, CMP3, HEMDF #### [facility] [address] [place] [address] Platelet mean volume (Bld) [Entitic vol] 10.3 fL Normal 7.4-12.4 [facility] Comment on above: Result Comment: MPV is a calculated measurement using platelet volume ratio. Performed By: #### B NP3, CMP3, HEMDF #### [facility] [address] [place] [address] Platelets (Bld) [#/Vol] 101 10*3/uL Low 140-440 [facility] Comment on above: Performed By: #### B NP3, CMP3, HEMDF #### [facility] [address] [place] [address] RBC (Bld) [#/Vol] 3.55 10*6/uL Low 3.80-5.20 [facility] Comment on above: Performed By: #### B NP3, CMP3, HEMDF #### [facility] [address] [place] [address] WBC (Bld) [#/Vol] 15.1 10*3/uL High 3.6-10.7 [facility] Comment on above: Performed By: #### B NP3, CMP3, HEMDF #### [facility] [address] [place] [address] Lactate, Sepsison 12-13-2021 Lactate [Moles/Vol] 1.7 mmol/L 0.7 - 2. 0 mmol/L [facility] Test Performed by [place] [address] [place] [address] [facility] LAB [facility] Interpretation and review of laboratory results Abnormal [facility] Lactate [Moles/Vol] 2.1 mmol/L Critically high 0.7 - 2.0 mmol/L [facility] Test Performed by [place] [address] [place], [place] [id number] [place] [address] LAB [facility] Lactic Acidon 12-13-2021 Lactate [Moles/Vol] 2.1 mmol/L Critically high 0.7-2.0 [facility] Comment on above: Performed By: #### B GLU #### [facility] [address] [place] [address] Interpretation and review of laboratory results Abnormal [facility] Lactate [Moles/Vol] 2.1 mmol/L Critically high 0.7 - 2.0 mmol/L [facility] Test Performed by [facility], [address] LAB [facility] Lactic Acid, Sepsison 2021 Lactate [Moles/Vol] 2.1 mmol/L Critically high 0.7-2.0 [facility] Comment on above: Performed By: #### B GLU #### [facility] [address] [place] [address] POCT GlucoseOrdered By: Anthony Sagastume on 12-13-2021 Glucose [Mass/Vol] 217 mg/dL High 70 - 100 mg/dL [facility] Comment on above: Test performed by gl ucose meter. Results may be 10%-15% lower than serum/plasma values. (CLIA ID [id number]) Interpretation and review of laboratory results Abnormal [facility] POCT Glucoseon 12-13-2021 Test Performed by [facility], [address] LAB Test Performed by [facility], [address] LAB POCT GlucoseOrdered By: Gerard Winston on 12-13-2021 Glucose [Mass/Vol] 176 mg/dL High 70 - 100 mg/dL [facility] Work Phone: Comment on above: Test performed by gl ucose meter. Results may be 10%-15% lower than serum/plasma values. (CLIA ID [id number]) Interpretation and review of laboratory results Abnormal [facility] Work Phone: [facility] Work Phone: Urinalysison 12-13-2021 [...] /[HPF] [facility] Comment on above: . Specific Amity, Urine 1.023 S [facility] Comment on above: . Squam Epithel, UA 0-2 3 - 5 /[HPF] [facility] Comment on above: . Uric Acid Valerie, UA Few Abnormal Negative /[HPF] [facility] Comment on above: . Urobilinogen, Urine Normal Normal (0-1) mg/dL [facility] Comment on above: . WBC, UA 0-2 0 - 5 /[HPF] [facility] Comment on above: . Test Performed by [facility], [address] [place], [place] [address] [facility] VL LOWER EXTREMITY BILATERAL VENOUS DUPLEXon 12-13-2021 Radiology Study observation (narrative) [facility] Work Phone: Laboratory - Chemistry and C hemistry - challengeon 11-26-2020 Average glucose Estimated from glycated hemoglobin (Bld) [Mass/Vol] 140 mg/dL [facility] Laboratory - Hematology and Cell countson 11-26-2020 HbA1c (Bld) [Mass fraction] 6.5 % High 4.3 - 5.6 % [facility] VL LOWER EXTREMITY VENOUS RI GHT [id number] 08-29-2020 [facility] Right Lower Extremity Venous Duplex Report Patient Ravindra, : 1945 Study 08/29/2020 Name: Mikel Davis (75yrs) Date: Age: 75 Account: [id number] Gender: F Loc: BP: Ordering Physician: Komal Cohn Pit Shoveler: Adrienne Williamson RDMS, RVT Interpreting Physician: Gracie Michele MD Location: [facility] Indications: DVT. Preliminary result was reported [...] supine position. Images were obtained using a [employer] E9 vascular ultrasound machine. Venous flow and [...] signed by Gracie Michele MD 08/29/2020 15:12 [facility], [facility], [facility] Cardiology Results From Lilliana/Bhakti - 08/29/2020 3:12 PM EST [facility] Right Lower Extremity Venous Duplex Report Patient CYRIL Winston: 1945 Study 08/29/2020 Name: Mikel Davis (75yrs) Date: Age: 75 Account: [id number] Gender: F Loc: BP: Ordering Physician: Komal Cohn Pit Shoveler: Adrienne Williamson RDMS, RVT Interpreting Physician: Gracie Michele MD Location: [facility] Indications: DVT. Preliminary result was reported [...] supine position. Images were obtained using a [employer] E9 vascular ultrasound machine. Venous flow and [...] signed by Gracie Michele MD 08/29/2020 15:12 [place], [place] CT Facial Bones WO ContrastO rdered By: Melanie Padilla on 08-25-2019 Patient Name: MIKEL WINSTON ---CT--- Exam Date/Time 08/25/2019 17:45:[address] Maxillofacial w/o Contrast Ordering Physician BAYRON PADILLA TAYLOR Accession Number [id number] CPT4 Codes 46044 () Reason For Exam fall, head injury, [...] JOHN Transcribed Date and Time: 08/25/2019 5:56 [facility] Work Phone: Harry, [facility] Incoming Radiology Results From [facility] - 08/25/2019 5:56 PM EST Patient Name: MIKEL WINSTON ---CT--- Exam Date/Time 08/25/2019 17:45:[address] Maxillofacial w/o Contrast Ordering Physician BAYRON PADILLA TAYLOR Accession Number [id number] CPT4 Codes 83757 () Reason For Exam fall, head injury, [...] JOHN Transcribed Date and Time: 08/25/2019 5:56 [facility] Work Phone: CT Head WO ContrastOrdered B y: Melanie Padilla on 08-25-2019 Patient Name: MIKEL WINSTON ---CT--- Exam Date/Time 08/25/2019 17:45:[address] Head or Brain w/o Contrast Ordering Physician BAYRON PADILLA TAYLOR Accession Number [id number] CPT4 Codes 73400 () Reason For Exam fall, head injury [...] Phone: Harry, [facility] Incoming Radiology Results From [facility] - 08/25/2019 5:48 PM EST Patient Name: MIKEL WINSTON ---CT--- Exam Date/Time 08/25/2019 17:45:[address] Head or Brain w/o Contrast Ordering Physician BAYRON PADILLA TAYLOR Accession Number [id number] CPT4 Codes 21221 () Reason For Exam fall, head injury [...] Ordering Physician BAYRON PADILLA TAYLOR Accession Number [id number] CPT4 Codes 91686 () Reason For Exam b/l anterolateral rib [...] JOHN Transcribed Date and Time: 08/25/2019 5:33 [facility] Work Phone: [facility] In[facility] Results From [facility] - 08/25/2019 5:34 PM EST Patient Name: MIKEL WINSTON ---Diagnostic Radiology--- Exam Date/Time 08/25/2019 17:21:32 EST Exam CR Chest Portable Ordering Physician BAYRON PADILLA TAYLOR Accession Number [id number] CPT4 Codes 85935 () Reason For Exam b/l anterolateral rib [...] Ordering Physician BAYRON PADILLA TAYLOR Accession Number [id number] CPT4 Codes 40680 () Reason For Exam left knee pain, [...] Time: 08/25/2019 5:34 [facility] Work Phone: Harry, [facility] Incoming Radiology Results From [facility] - 08/25/2019 5:34 PM EST Patient Name: MIKEL WINSTON ---Diagnostic Radiology--- Exam Date/Time 08/25/2019 17:21:32 EST Exam CR Knee 3 Views Left Ordering Physician BAYRON PADILLA TAYLOR Accession Number [id number] CPT4 Codes 19561 () Reason For Exam left knee pain, [...] and Time: 08/25/2019 5:34 [facility] Work Phone: XR Shoulder Right 2 VWOrdere d By: Melanie Padilla on 08-25-2019 Patient Name: MIKEL WINSTON ---Diagnostic Radiology--- Exam Date/Time 08/25/2019 17:21:32 EST Exam CR Shoulder 2+ Views Right Ordering Physician BAYRON PADILLA TAYLOR Accession Number [id number] CPT4 Codes 32436 () Reason For Exam right shoulder pain, [...] JOHN Transcribed Date and Time: 08/25/2019 5:32 [facility] Work Phone: [facility], [facility] Results From [facility] - 08/25/2019 5:33 PM EST Patient Name: MIKEL WINSTON ---Diagnostic Radiology--- Exam Date/Time 08/25/2019 17:21:32 EST Exam CR Shoulder 2+ Views Right Ordering Physician BAYRON PADILLA TAYLOR Accession Number [id number] CPT4 Codes 19983 () Reason For Exam right shoulder pain, [...] JOHN Transcribed Date and Time: 08/25/2019 5:32 [facility] Work Phone: Vital Signs Date Time Vital Sign Value Performing Clinician Facility 01-11-2025 15:30-0400 Diastolic blood pressure 74 mm[Hg] Meet Martinez BRUNNER Work Phone: [facility] 01-11-2025 15:30-0400 Systolic blood pressure 144 mm[Hg] Meet Martinez BRUNNER Work Phone: [facility] 01-11-2025 15:16-0400 Body height 162.6 cm Meet Martinez BRUNNER Work Phone: [facility] 01-11-2025 15:16-0400 Body mass index (BMI) [Ratio] 34.67 kg/m2 Meet Martinez BRUNNER Work Phone: [facility] 01-11-2025 15:16-0400 Body weight 91.63 kg Meet Martinez BRUNNER Work Phone: [facility] 01-11-2025 15:16-0400 Heart rate 84 /min Meet Martinez BRUNNER Work Phone: [facility] 01-11-2025 15:16-0400 SaO2% (BldA) [Mass fraction] 97 % Meet Martinez BRUNNER Work Phone: [facility] 07-04-2024 07:27-0500 Body temperature 98.49 [degF] Kaiden David MD Work Phone: [facility] 07-04-2024 07:27-0500 Diastolic blood pressure 62 mm[Hg] Kaiden David MD Work Phone: [facility] 07-04-2024 07:27-0500 Heart rate 86 /min Kaiden David MD Work Phone: [facility] 07-04-2024 07:27-0500 Respiratory rate 20 /min Kaiden David MD Work Phone: [facility] 07-04-2024 07:27-0500 SaO2% (BldA) [Mass fraction] 99 % Kaiden David MD Work Phone: [facility] 07-04-2024 07:27-0500 Systolic blood pressure 142 mm[Hg] Kaiden David MD Work Phone: [facility] 06-29-2024 08:31-0500 Body height 162.6 cm Kaiden David MD Work Phone: [facility] 06-26-2024 08:31-0500 SaO2% (BldA) [Mass fraction] 96.6 % Kaiden David MD Work Phone: [facility] 06-11-2024 13:54-0500 Diastolic blood pressure 90 mm[Hg] Caputa Lalit DO Work Phone: [facility] 06-11-2024 13:54-0500 Systolic blood pressure 143 mm[Hg] Komal Lalit DO Work Phone: [facility] 06-11-2024 13:13-0500 Body height 162.6 cm Komal Lalit DO Work Phone: [facility] 06-11-2024 13:13-0500 Body mass index (BMI) [Ratio] 32.61 kg/m2 Komal Lalit DO Work Phone: [facility] 06-11-2024 13:13-0500 Body temperature 97.81 [degF] Caputa Lalit DO Work Phone: [facility] 06-11-2024 13:13-0500 Body weight 86.18 kg Komal Lalit DO Work Phone: [facility] 06-11-2024 13:13-0500 Heart rate 92 /min Caputa Lalit DO Work Phone: [facility] 06-11-2024 13:13-0500 SaO2% (BldA) [Mass fraction] 98 % Komal Lalit DO Work Phone: [facility] 06-01-2024 12:58-0400 Body temperature 98.8 [degF] Kimi Clearlake DO Work Phone: [facility] 06-01-2024 12:58-0400 Diastolic blood pressure 37 mm[Hg] Kimi Clearlake DO Work Phone: [facility] 06-01-2024 12:58-0400 Heart rate 66 /min Kimi Clearlake DO Work Phone: [facility] 06-01-2024 12:58-0400 Respiratory rate 17 /min Kimi Clearlake DO Work Phone: [facility] 06-01-2024 12:58-0400 SaO2% (BldA) [Mass fraction] 94 % Kimi Clearlake DO Work Phone: [facility] 06-01-2024 12:58-0400 Systolic blood pressure 126 mm[Hg] Kimi Clearlake DO Work Phone: [facility] 05-29-2024 22:29-0400 Body mass index (BMI) [Ratio] 36.56 kg/m2 Kimi Clearlake DO Work Phone: [facility] 05-29-2024 22:29-0400 Body weight 96.62 kg Kimi Clearlake DO Work Phone: [facility] 05-29-2024 18:40-0400 Body height 162.6 cm Kimi Clearlake DO Work Phone: [facility] 04-27-2024 16:08-0400 Body height 162.6 cm Komal Lalit DO Work Phone: [facility] 04-27-2024 16:08-0400 Body mass index (BMI) [Ratio] 33.99 kg/m2 Caputa Lalit DO Work Phone: [facility] 04-27-2024 16:08-0400 Body temperature 98.1 [degF] Komal Lalit DO Work Phone: [facility] 04-27-2024 16:08-0400 Body weight 89.81 kg Caputa Lalit DO Work Phone: [facility] 04-27-2024 16:08-0400 Diastolic blood pressure 64 mm[Hg] Komal Lalit DO Work Phone: [facility] 04-27-2024 16:08-0400 Heart rate 61 /min Komal Lalit DO Work Phone: [facility] 04-27-2024 16:08-0400 SaO2% (BldA) [Mass fraction] 96 % Caputa Lalit DO Work Phone: [facility] 04-27-2024 16:08-0400 Systolic blood pressure 130 mm[Hg] Caputa Lalit DO Work Phone: [facility] 04-18-2024 13:52-0400 Body height 162.6 cm Jose Rojas MD Work Phone: [facility] 04-18-2024 13:52-0400 Body mass index (BMI) [Ratio] 33.81 kg/m2 Jose Rojas MD Work Phone: [facility] 04-18-2024 13:52-0400 Body weight 89.36 kg Jose Rojas MD Work Phone: [facility] 03-16-2024 15:22-0400 Body height 162.6 cm Komal Lalit DO Work Phone: [facility] 03-16-2024 15:22-0400 Body mass index (BMI) [Ratio] 33.64 kg/m2 Caputa Lalit DO Work Phone: [facility] 03-16-2024 15:22-0400 Body weight 88.91 kg Caputa Lalit DO Work Phone: [facility] 03-16-2024 15:22-0400 Diastolic blood pressure 52 mm[Hg] Caputa Lalit DO Work Phone: [facility] 03-16-2024 15:22-0400 Heart rate 60 /min Komal Lalit DO Work Phone: [facility] 03-16-2024 15:22-0400 SaO2% (BldA) [Mass fraction] 99 % Caputa Lalit DO Work Phone: [facility] 03-16-2024 15:22-0400 Systolic blood pressure 120 mm[Hg] Komal Lalit DO Work Phone: [facility] 03-14-2024 13:06-0400 Body height 162.6 cm Jose Rojas MD Work Phone: [facility] 03-14-2024 13:06-0400 Body mass index (BMI) [Ratio] 33.81 kg/m2 Jose Rojas MD Work Phone: [facility] 03-14-2024 13:06-0400 Body weight 89.36 kg Jose Rojas MD Work Phone: [facility] 03-14-2024 13:06-0400 Diastolic blood pressure 84 mm[Hg] Jose Rojas MD Work Phone: [facility] 03-14-2024 13:06-0400 Heart rate 70 /min Jose Rojas MD Work Phone: [facility] 03-14-2024 13:06-0400 SaO2% (BldA) [Mass fraction] 99 % Jose Rojas MD Work Phone: [facility] 03-14-2024 13:06-0400 Systolic blood pressure 178 mm[Hg] Jose Rojas MD Work Phone: [facility] 02-27-2024 15:18-0400 Body height 162.6 cm Komal Lalit DO Work Phone: [facility] 02-27-2024 15:18-0400 Body mass index (BMI) [Ratio] 34.16 kg/m2 Komal Lalit DO Work Phone: [facility] 02-27-2024 15:18-0400 Body temperature 97.5 [degF] Komal Lalit DO Work Phone: [facility] 02-27-2024 15:18-0400 Body weight 90.27 kg Caputa Lalit DO Work Phone: [facility] 02-27-2024 15:18-0400 Diastolic blood pressure 60 mm[Hg] Caputa Lalit DO Work Phone: [facility] 02-27-2024 15:18-0400 Heart rate 63 /min Komal Lalit DO Work Phone: [facility] 02-27-2024 15:18-0400 SaO2% (BldA) [Mass fraction] 98 % Caputa Lalit DO Work Phone: [facility] 02-27-2024 15:18-0400 Systolic blood pressure 140 mm[Hg] Caputa Lalit DO Work Phone: [facility] 02-02-2024 08:00-0400 Body temperature 96.8 [degF] Surjit Sanchez MD Work Phone: [facility] 02-02-2024 08:00-0400 Diastolic blood pressure 50 mm[Hg] Surjit Sanchez MD Work Phone: [facility] 02-02-2024 08:00-0400 Heart rate 55 /min Surjit Sanchez MD Work Phone: [facility] 02-02-2024 08:00-0400 Respiratory rate 16 /min Surjit Sanchez MD Work Phone: [facility] 02-02-2024 08:00-0400 SaO2% (BldA) [Mass fraction] 92 % Surjit Sanchez MD Work Phone: [facility] 02-02-2024 08:00-0400 Systolic blood pressure 113 mm[Hg] Surjit Sanchez MD Work Phone: [facility] 01-28-2024 21:30-0400 Body mass index (BMI) [Ratio] 33.06 kg/m2 Surjit Sanchez MD Work Phone: [facility] 01-28-2024 21:30-0400 Body weight 92.9 kg Surjit Sanchez MD Work Phone: [facility] 01-28-2024 19:49-0400 Body height 167.6 cm Surjit Sanchez MD Work Phone: [facility] 01-06-2024 13:09-0400 Body height 162.6 cm Caputa Lalit DO Work Phone: [facility] 01-06-2024 13:09-0400 Body mass index (BMI) [Ratio] 35.36 kg/m2 Komal Lalit DO Work Phone: [facility] 01-06-2024 13:09-0400 Body temperature 98.01 [degF] Caputa Lalit DO Work Phone: [facility] 01-06-2024 13:09-0400 Body weight 93.44 kg Caputa Lalit DO Work Phone: [facility] 01-06-2024 13:09-0400 Diastolic blood pressure 70 mm[Hg] Komal Lalit DO Work Phone: [facility] 01-06-2024 13:09-0400 Heart rate 61 /min Komal Lalit DO Work Phone: [facility] 01-06-2024 13:09-0400 SaO2% (BldA) [Mass fraction] 97 % Caputa Lalit DO Work Phone: [facility] 01-06-2024 13:09-0400 Systolic blood pressure 134 mm[Hg] Komal Lalit DO Work Phone: [facility] 12-07-2023 10:21-0400 Body height 162.6 cm Caputa Lalit DO Work Phone: [facility] 12-07-2023 10:21-0400 Body mass index (BMI) [Ratio] 35.87 kg/m2 Caputa Lalit DO Work Phone: [facility] 12-07-2023 10:21-0400 Body temperature 98.2 [degF] Komal Lalit DO Work Phone: [facility] 12-07-2023 10:21-0400 Body weight 94.8 kg Komal Lalit DO Work Phone: [facility] 12-07-2023 10:21-0400 Diastolic blood pressure 60 mm[Hg] Komal Lalit DO Work Phone: [facility] 12-07-2023 10:21-0400 Heart rate 80 /min Komal Lalit DO Work Phone: [facility] 12-07-2023 10:21-0400 SaO2% (BldA) [Mass fraction] 96 % Caputa Lalit DO Work Phone: [facility] 12-07-2023 10:21-0400 Systolic blood pressure 118 mm[Hg] Caputa Lalit DO Work Phone: [facility] 06-27-2023 10:51-0500 Body height 162.6 cm Komal Lalit DO Work Phone: [facility] 06-27-2023 10:51-0500 Body temperature 97.5 [degF] Caputa Lalit DO Work Phone: [facility] 06-27-2023 10:51-0500 Body weight 90.72 kg Komal Lalit DO Work Phone: [facility] 06-27-2023 10:51-0500 Diastolic blood pressure 60 mm[Hg] Caputa Lalit DO Work Phone: [facility] 06-27-2023 10:51-0500 Heart rate 67 /min Caputa Lalit DO Work Phone: [facility] 06-27-2023 10:51-0500 SaO2% (BldA) [Mass fraction] 99 % Caputa Lalit DO Work Phone: [facility] 06-27-2023 10:51-0500 Systolic blood pressure 128 mm[Hg] Caputa Lalit DO Work Phone: [facility] 03-30-2023 10:44-0400 Body height 162.6 cm Jose Rojas MD Work Phone: [facility] 03-30-2023 10:44-0400 Body mass index (BMI) [Ratio] 33.88 kg/m2 Jose Rojas MD Work Phone: [facility] 03-30-2023 10:44-0400 Body weight 89.54 kg Jose Rojas MD Work Phone: [facility] 03-30-2023 10:44-0400 Diastolic blood pressure 70 mm[Hg] Jose Rojas MD Work Phone: [facility] 03-30-2023 10:44-0400 Heart rate 73 /min Jose Rojas MD Work Phone: [facility] 03-30-2023 10:44-0400 Respiratory rate 16 /min Jose Rojas MD Work Phone: [facility] 03-30-2023 10:44-0400 SaO2% (BldA) [Mass fraction] 96 % Jose Rojas MD Work Phone: [facility] 03-30-2023 10:44-0400 Systolic blood pressure 130 mm[Hg] Jose Rojas MD Work Phone: [facility] 03-14-2023 10:46-0400 Body height 162.6 cm Komal Lalit DO Work Phone: [facility] 03-14-2023 10:46-0400 Body temperature 97.59 [degF] Caputa Lalit DO Work Phone: [facility] 03-14-2023 10:46-0400 Body weight 88.91 kg Komal Lalit DO Work Phone: [facility] 03-14-2023 10:46-0400 Diastolic blood pressure 68 mm[Hg] Caputa Lalit DO Work Phone: [facility] 03-14-2023 10:46-0400 Heart rate 66 /min Komal Allit DO Work Phone: [facility] 03-14-2023 10:46-0400 SaO2% (BldA) [Mass fraction] 99 % Caputa Lalit DO Work Phone: [facility] 03-14-2023 10:46-0400 Systolic blood pressure 142 mm[Hg] Komal Lalit DO Work Phone: [facility] 03-07-2023 11:02-0400 Body height 162.6 cm Caputa Lalit DO Work Phone: [facility] 03-07-2023 11:02-0400 Body temperature 98.2 [degF] Komal Lalit DO Work Phone: [facility] 03-07-2023 11:02-0400 Body weight 89.81 kg Caputa Lalit DO Work Phone: [facility] 03-07-2023 11:02-0400 Diastolic blood pressure 60 mm[Hg] Caputa Lalit DO Work Phone: [facility] 03-07-2023 11:02-0400 Heart rate 61 /min Caputa Lalit DO Work Phone: [facility] 03-07-2023 11:02-0400 SaO2% (BldA) [Mass fraction] 98 % Caputa Lalit DO Work Phone: [facility] 03-07-2023 11:02-0400 Systolic blood pressure 130 mm[Hg] Caputa Llait DO Work Phone: [facility] 12-08-2022 15:59-0400 Body height 165.1 cm Charley Elena [employer] Work Phone: [facility] 12-08-2022 15:59-0400 Body mass index (BMI) [Ratio] 31.95 kg/m2 Charley Elena [employer] Work Phone: [facility] 12-08-2022 15:59-0400 Body weight 87.09 kg Charley Elena [employer] Work Phone: [facility] 11-19-2022 09:14-0400 Diastolic blood pressure 61 mm[Hg] Ajit Nesheim DO Work Phone: [facility] 11-19-2022 09:14-0400 Heart rate 64 /min Ajit Nesheim DO Work Phone: [facility] 11-19-2022 09:14-0400 Systolic blood pressure 146 mm[Hg] Ajit Nesheim DO Work Phone: [facility] 11-18-2022 19:17-0400 Body temperature 98.4 [degF] Ajit Nesheim DO Work Phone: [facility] 11-18-2022 19:17-0400 Respiratory rate 18 /min Ajit Nesheim DO Work Phone: [facility] 11-18-2022 19:17-0400 SaO2% (BldA) [Mass fraction] 99 % Ajit Nesheim DO Work Phone: [facility] 09-30-2022 11:14-0500 Body mass index (BMI) [Ratio] 31.95 kg/m2 Charley Parker [employer] Work Phone: [facility] 09-30-2022 11:14-0500 Body weight 87.09 kg Charley Parker [employer] Work Phone: [facility] 09-30-2022 11:14-0500 Diastolic blood pressure 70 mm[Hg] Charley Parker [employer] Work Phone: [facility] 09-30-2022 11:14-0500 Heart rate 74 /min Charley Parker [employer] Work Phone: [facility] 09-30-2022 11:14-0500 Respiratory rate 16 /min Charley Parker [employer] Work Phone: [facility] 09-30-2022 11:14-0500 SaO2% (BldA) [Mass fraction] 97 % Charley Parker [employer] Work Phone: [facility] 09-30-2022 11:14-0500 Systolic blood pressure 138 mm[Hg] Charely Parker [employer] Work Phone: [facility] 08-16-2022 11:14-0500 Body height 162.6 cm Komal Lalit DO Work Phone: [facility] 08-16-2022 11:14-0500 Body temperature 98.2 [degF] Caputa Lalit DO Work Phone: [facility] 08-16-2022 11:14-0500 Body weight 86.18 kg Komal Lalit DO Work Phone: [facility] 08-16-2022 11:14-0500 Diastolic blood pressure 62 mm[Hg] Komal Lalit DO Work Phone: [facility] 08-16-2022 11:14-0500 Heart rate 67 /min Caputa Lalit DO Work Phone: [facility] 08-16-2022 11:14-0500 SaO2% (BldA) [Mass fraction] 98 % Komal Lalit DO Work Phone: [facility] 08-16-2022 11:14-0500 Systolic blood pressure 130 mm[Hg] Caputa Lalit DO Work Phone: [facility] 05-03-2022 11:10-0400 Body height 162.6 cm Komal Lalit DO Work Phone: [facility] 05-03-2022 11:10-0400 Body temperature 97.81 [degF] Caputa Lalit DO Work Phone: [facility] 05-03-2022 11:10-0400 Body weight 85.28 kg Caputa Lalit DO Work Phone: [facility] 05-03-2022 11:10-0400 Diastolic blood pressure 58 mm[Hg] Komal Lalit DO Work Phone: [facility] 05-03-2022 11:10-0400 Heart rate 63 /min Caputa Lalit DO Work Phone: [facility] 05-03-2022 11:10-0400 SaO2% (BldA) [Mass fraction] 96 % Caputa Lalit DO Work Phone: [facility] 05-03-2022 11:10-0400 Systolic blood pressure 118 mm[Hg] Komal Lalit DO Work Phone: [facility] 12-22-2021 15:08-0400 Body temperature 96.21 [degF] LINWOOD John MD Work Phone: [facility] 12-22-2021 15:08-0400 Diastolic blood pressure 58 mm[Hg] LINWOOD John MD Work Phone: [facility] 12-22-2021 15:08-0400 Heart rate 67 /min LINWOOD John MD Work Phone: [facility] 12-22-2021 15:08-0400 Respiratory rate 18 /min LINWOOD John MD Work Phone: [facility] 12-22-2021 15:08-0400 SaO2% (BldA) [Mass fraction] 99 % LINWOOD John MD Work Phone: [facility] 12-22-2021 15:08-0400 Systolic blood pressure 137 mm[Hg] LINWOOD John MD Work Phone: [facility] 12-21-2021 13:11-0400 Body height 165.1 cm LINWOOD John MD Work Phone: [facility] 12-21-2021 06:28-0400 Body mass index (BMI) [Ratio] 32.57 kg/m2 LINWOOD John MD Work Phone: [facility] 12-21-2021 06:28-0400 Body weight 88.77 kg LINWOOD John MD Work Phone: [facility] 11-30-2021 13:20-0400 Body temperature 98.29 [degF] Caputa Lalit DO Work Phone: [facility] 11-30-2021 13:20-0400 Body weight 89.36 kg Komal Lalit DO Work Phone: [facility] 11-30-2021 13:20-0400 Diastolic blood pressure 78 mm[Hg] Caputa Lalit DO Work Phone: [facility] 11-30-2021 13:20-0400 Heart rate 67 /min Komal Lalit DO Work Phone: [facility] 11-30-2021 13:20-0400 SaO2% (BldA) [Mass fraction] 97 % Caputa Lalit DO Work Phone: [facility] 11-30-2021 13:20-0400 Systolic blood pressure 142 mm[Hg] Komal Lalit DO Work Phone: [facility] 09-03-2021 14:16-0500 Body height 162.6 cm Komal Lalit DO Work Phone: [facility] 09-03-2021 14:16-0500 Body temperature 96.91 [degF] Komal Lalit DO Work Phone: [facility] 09-03-2021 14:16-0500 Body weight 89.81 kg Komal Lalit DO Work Phone: [facility] 09-03-2021 14:16-0500 Diastolic blood pressure 78 mm[Hg] Caputa Lalit DO Work Phone: [facility] 09-03-2021 14:16-0500 Heart rate 86 /min Caputa Lalit DO Work Phone: [facility] 09-03-2021 14:16-0500 SaO2% (BldA) [Mass fraction] 97 % Komal Lalit DO Work Phone: [facility] 09-03-2021 14:16-0500 Systolic blood pressure 144 mm[Hg] Caputa Lalit DO Work Phone: [facility] 05-28-2021 13:39-0400 Body height 162.6 cm Caputa Lalit DO Work Phone: [facility] 05-28-2021 13:39-0400 Body temperature 98.4 [degF] Komal Lalit DO Work Phone: [facility] 05-28-2021 13:39-0400 Body weight 90.72 kg Komal Lalit DO Work Phone: [facility] 05-28-2021 13:39-0400 Diastolic blood pressure 72 mm[Hg] Caputa Lalit DO Work Phone: [facility] 05-28-2021 13:39-0400 Heart rate 78 /min Komal Lalit DO Work Phone: [facility] 05-28-2021 13:39-0400 SaO2% (BldA) [Mass fraction] 98 % Komal Lalit DO Work Phone: [facility] 05-28-2021 13:39-0400 Systolic blood pressure 130 mm[Hg] Komal Lalit DO Work Phone: [facility] 02-25-2021 11:21-0400 Diastolic blood pressure 80 mm[Hg] Komal Lalit DO Work Phone: [facility] 02-25-2021 11:21-0400 Systolic blood pressure 140 mm[Hg] Komal Lalit DO Work Phone: [facility] 02-25-2021 10:42-0400 Body height 162.6 cm Komal Lalit DO Work Phone: [facility] 02-25-2021 10:42-0400 Body temperature 97.2 [degF] Caputa Lalit DO Work Phone: [facility] 02-25-2021 10:42-0400 Body weight 92.08 kg Caputa Lalit DO Work Phone: [facility] 02-25-2021 10:42-0400 Heart rate 65 /min Komal Lalit DO Work Phone: [facility] 02-25-2021 10:42-0400 SaO2% (BldA) [Mass fraction] 98 % Caputa Lalit DO Work Phone: [facility] 11-26-2020 11:52-0400 Diastolic blood pressure 50 mm[Hg] Caputa Lalit Work Phone: [facility] 11-26-2020 11:52-0400 Systolic blood pressure 130 mm[Hg] Caputa Lalit Work Phone: [facility] 11-26-2020 11:33-0400 Body height 162.6 cm Caputa Lalit Work Phone: [facility] 11-26-2020 11:33-0400 Body temperature 96.21 [degF] Caputa Lalit Work Phone: [facility] 11-26-2020 11:33-0400 Body weight 90.27 kg Komal Lalit Work Phone: [facility] 11-26-2020 11:33-0400 Heart rate 70 /min Komal Lalit Work Phone: [facility] 11-26-2020 11:33-0400 SaO2% (BldA) [Mass fraction] 97 % Caputa Lalit Work Phone: [facility] 08-25-2019 19:19-0500 Diastolic blood pressure 78 mm[Hg] Caputa Lalit DO Work Phone: [facility] Work Phone: 08-25-2019 19:19-0500 Heart rate 78 /min Caputa Lalit DO Work Phone: [facility] Work Phone: 08-25-2019 19:19-0500 Respiratory rate 18 /min Komal Lalit DO Work Phone: [facility] Work Phone: 08-25-2019 19:19-0500 SaO2% (BldA) [Mass fraction] 98 % Komal Lalit DO Work Phone: [facility] Work Phone: 08-25-2019 19:19-0500 Systolic blood pressure 144 mm[Hg] Caputa Lalit DO Work Phone: [employer] Work Phone: 08-25-2019 15:49-0500 Body mass index (BMI) [Ratio] 33.64 kg/m2 Caputa Lalit DO Work Phone: [facility] Work Phone: 08-25-2019 15:49-0500 Body temperature 98.1 [degF] Caputa Lalit DO Work Phone: [facility] Work Phone: 08-25-2019 15:49-0500 Body weight 88.91 kg Komal Mcbriderio DO Work Phone: [facility] Work Phone: Encounters Encounter Date Encounter Type Care Provider Facility Start: 06-06-2025 End: 06-06-2025 ambulatory [facility] Start: 06-03-2025 ambulatory Julieth Deperro OLS Facili ty:[facility] Start: 05-09-2025 End: 05-15-2025 Telephone encounter Jose Rojas MD Work Phone: [facility] Start: 04-24-2025 ambulatory Julieth Deperro OLS Facili ty:[facility] Start: 04-10-2025 ambulatory Julieth Deperro OLS Facili ty:[facility] Start: 03-28-2025 ambulatory Julieth Deperro OLS Facili ty:[facility] Start: 03-25-2025 End: 03-26-2025 Telephone encounter Jose Rojas MD Work Phone: [facility] Comment on above: Results (Pacemaker R emote) Start: 03-25-2025 End: 03-25-2025 ambulatory [facility] Start: 03-12-2025 ambulatory Julieth Deperro OLS Facili ty:[facility] Start: 03-06-2025 End: 03-06-2025 ambulatory JULIETH DEPERRO [facility] Start: 02-11-2025 ambulatory Julieth QURESHI Facili ty:[facility] Start: 02-05-2025 ambulatory Julieth QURESHI Facili ty:[facility] Start: 01-11-2025 End: 01-11-2025 Office outpatient visit 15 minutes Meet Madonna Poole MD Work Phone: [facility] [place] Comment on above: Second degree heart block (Primary Dx); Essential hypertension; Cardiac pacemaker in situ Start: 01-11-2025 End: 01-11-2025 ambulatory [facility] Start: 01-10-2025 ambulatory Julieth QURESHI Facili ty:[facility] Start: 12-25-2024 ambulatory Julieth QURESHI Facili ty:[facility] Start: 11-29-2024 End: 11-29-2024 ambulatory [facility] Start: 11-26-2024 Registered Referred Julieth Olmedo [facility] Start: 11-26-2024 End: 11-26-2024 ambulatory Julieth QURESHI Facility:[facility] Start: 11-12-2024 Registered Referred Julieth Olmedo MD [facility] Start: 11-12-2024 End: 11-12-2024 ambulatory Julieth QURESHI Facility:[facility] Start: 11-02-2024 End: 11-02-2024 ambulatory Julieth Olmedo MD [facility] Work Phone: Start: 11-02-2024 End: 11-02-2024 Departed Referred Julieth Olmedo MD [facility] Start: 11-02-2024 Registered Referred Julieth Olmedo MD [facility] Start: 11-02-2024 End: 11-02-2024 ambulatory Julieth QURESHI Facility:[facility] Start: 10-26-2024 End: 10-26-2024 ambulatory Julieth Olmedo MD [facility] Work Phone: Start: 10-26-2024 End: 10-26-2024 Departed Referred Julieth Olmedo MD [facility] Start: 10-26-2024 [facility] Start: 10-26-2024 End: 10-26-2024 ambulatory Julieth QURESHI Facility:[facility] Start: 10-15-2024 End: 10-15-2024 ambulatory Julieth Olmedo MD [facility] Work Phone: Start: 10-15-2024 End: 10-15-2024 Departed Referred Julieth Olmedo MD [facility] Start: 10-15-2024 [facility] Start: 10-15-2024 End: 10-15-2024 ambulatory Julieth QURESHI Facility:[facility] Start: 10-05-2024 End: 10-05-2024 ambulatory Julieth Olmedo MD [facility] Work Phone: Start: 10-05-2024 End: 10-05-2024 Departed Referred Julieth Olmedo MD [facility] Start: 10-05-2024 End: 10-05-2024 ambulatory Julieth QURESHI Facility:[facility] Start: 10-01-2024 End: 10-25-2024 Telephone encounter Jose Rojas MD Work Phone: [facility] Comment on above: Med Management Start: 09-25-2024 ambulatory Julieth QURESHI Facili ty:[facility] Start: 09-25-2024 [facility] Start: 08-30-2024 End: 08-30-2024 ambulatory [facility] Start: 08-07-2024 ambulatory Julieth QURESHI Facili ty:[facility] Start: 08-07-2024 Registered Referred Julieth [facility] Start: 08-03-2024 End: 08-03-2024 Home visit Gogo Barbosa RN AG Electrocardiographic Technician Comment on above: Transition Of Care ( SNF 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)) Start: 08-03-2024 End: 08-03-2024 ambulatory Gogo Barbosa RN AG Electrocardiographic Technician Start: 08-03-2024 [facility] Start: 08-02-2024 ambulatory Julieth QURESHI Facili ty:[facility] Start: 08-02-2024 Registered Referred Julieth Olmedo MD [facility] Start: 07-25-2024 ambulatory Julieth QURESHI Facili ty:[facility] Start: 07-25-2024 [facility]istered [facility] Start: 07-20-2024 End: 07-20-2024 Departed Referred Julieth Olmedo MD [facility] Start: 07-19-2024 End: 07-20-2024 ambulatory Julieth QURESHI Facility:[facility] Start: 07-19-2024 [facility]istered [facility] Start: 07-18-2024 End: 07-18-2024 Dep[facility]ed [facility] Start: 07-18-2024 End: 07-18-2024 ambulatory Julieth QURESHI Facility:[facility] Start: 07-17-2024 End: 07-17-2024 Departed Referred Julieth Olmedo MD [facility] Start: 07-17-2024 End: 07-17-2024 ambulatory Julieth QURESHI Facility:[facility] Start: 2024 End: 2024 ambulatory Gogo Barbosa RN AG Electrocardiographic Technician Start: 2024 End: 2024 Home visit Gogo Barbosa RN AG Electrocardiographic Technician Comment on above: Transition Of Care ( [facility]charge to [facility]) Start: 07-11-2024 ambulatory Julieth QURESHI Facili ty:[facility] Start: 07-11-2024 [facility]istered [facility] Start: 07-10-2024 ambulatory Julieth QURESHI Facili ty:[facility] Start: 07-09-2024 ambulatory Julieth QURESHI Facili ty:[facility] Start: 06-26-2024 End: 06-26-2024 [facility] Start: 06-25-2024 End: 07-04-2024 Evaluation and management of inpatient Kaiden David MD Work Phone: [facility] Cardiac Progressive Care Unit PCU 2E Start: 06-20-2024 End: 06-20-2024 ambulatory [facility] Start: 06-11-2024 End: 06-11-2024 [facility] Facility:[facility] Start: 06-11-2024 End: 06-11-2024 Patient encounter procedure Komal Cohn DO Work Phone: [facility] Comment on above: Primary hypertension (Primary Dx); Systolic murmur; Symptomatic sinus bradycardia; CKD (chronic kidney disease) stage 4, GFR 15-29 ml/min (HCC); Class 1 obesity with body mass index (BMI) of 32.0 to 32.9 in adult, unspecified obesity type, unspecified whether serious comorbidity present Start: 06-06-2024 End: 06-06-2024 Telephone encounter Komal Cohn DO Work Phone: [facility] Comment on above: Home Care Arrangemen ts Start: 06-01-2024 End: 06-01-2024 Orders Only Kyung Hogan WAITER/WAITRESS FORMAL - METAL MELTER Work Phone: [facility] Cardiology [facility] Comment on above: BARRY (acute [...] encounter procedure Komal Cohn DO Work Phone: [facility] Comment on above: Primary hypertension (Primary Dx); Type 2 diabetes mellitus with stage 4 chronic kidney disease, without long-term current use of insulin (HCC); CKD (chronic kidney disease) stage 4, GFR 15-29 ml/min (HCC); Cellulitis of left lower leg; Class 1 obesity with body mass index (BMI) of 33.0 to 33.9 in adult, unspecified obesity type, unspecified whether serious comorbidity present; Bilateral leg edema; Systolic murmur; Other depression Start: 04-27-2024 End: 04-27-2024 ambulatory [place] MARYAN COHN Facility:[facility] Start: 04-25-2024 End: 04-25-2024 Subsequent hospital visit by physician Le Dobson APRN - METAL MELTER Work Phone: [facility] Vascular Lab Comment on above: Chronic kidney disea se, stage 4 (severe) (HCC) Start: 04-18-2024 End: 04-18-2024 Subsequent hospital visit by physician Jose Rojas MD Work Phone: [facility] Non-Invasive Cardiology Comment on above: Coronary artery dise ase involving coronary bypass graft of [place] heart without angina pectoris; Nonrheumatic aortic valve stenosis Start: 04-12-2024 End: 04-13-2024 Refill Komal Cohn DO Work Phone: [facility] Comment on above: Refill Request Start: 04-07-2024 End: 04-10-2024 Refill Komal Maryan Cohn DO Work Phone: [facility] Comment on above: Refill Request; Medi cation Question (Citalopram) Start: 04-06-2024 End: 07-06-2024 Transcribe Orders Le Dobson WAITER/WAITRESS FORMAL - METAL MELTER Work Phone: [facility] Comment on above: Chronic kidney disea se, stage 4 (severe) (HCC) (Primary Dx) Start: 03-21-2024 End: 03-21-2024 Telephone encounter Jose Rojas MD Work Phone: [facility] Cardiology Comment on above: Results Start: 03-16-2024 End: 03-16-2024 Patient encounter procedure Komal Cohn DO Work Phone: [facility] Comment on above: Cellulitis of left l ower leg (Primary Dx) Start: 03-16-2024 End: 03-16-2024 ambulatory KOMAL COHN Facility:[facility] Start: 03-15-2024 Telephone encounter Komal Cohn DO Work Phone: [facility] Comment on above: Orders (Handicap suad card requested ) Start: 03-14-2024 ambulatory Latonya Rosado RN AG Am bulatory Care Start: 03-14-2024 Home visit Latonya Rosado RN AG Am bulatory Care Comment on above: Transition Of Care B i-weekly phone contact (Recurring) for Transitional Care Management Start: 03-14-2024 End: 03-14-2024 Office outpatient visit 25 minutes Jose Rojas MD Work Phone: [facility] Cardiology Comment on above: Nonrheumatic aortic valve stenosis (Primary Dx); Coronary artery disease involving coronary bypass graft of [place] heart without angina pectoris Start: 02-29-2024 ambulatory Latonya Rosado RN AG Am bulatory Care Start: 02-29-2024 Home visit Latonya Rosado RN AG Am bulatory Care Comment on above: Transition Of Care B i-weekly phone contact (Recurring) for Transitional Care Management Start: 02-27-2024 End: 02-27-2024 Patient encounter procedure Komal Cohn DO Work Phone: [facility] Comment on above: Primary hypertension (Primary Dx); Cellulitis of right lower extremity; Acute cystitis without hematuria; Class 1 obesity with body mass index (BMI) of 34.0 to 34.9 in adult, unspecified obesity type, unspecified whether serious comorbidity present Start: 02-27-2024 End: 02-27-2024 ambulatory KOMAL COHN Facility:[facility] Start: 02-15-2024 ambulatory Gogo Barbosa RN Amb ulatory Care Start: 02-15-2024 Home visit Gogo Barbosa RN Amb ulatory Care Comment on above: Transition Of Care ( Discharged from [facility] to Home ) Transition Of Care ( [place] SNF 02/13/24) Initial phone contact for Transitional Care Management Start: 02-15-2024 Telephone encounter Komal Cohn DO Work Phone: Electrocardiographic Technician Comment on above: prescription Start: 02-08-2024 ambulatory Sue Claudio RN Electrocardiographic Technician Start: 02-08-2024 Home visit Sue Claudio RN Electrocardiographic Technician Comment on above: Transition Of Care ( [facility] D[facility]C to SNF 02/02/24) Start: 01-28-2024 End: 02-02-2024 Evaluation and management of inpatient Surjit Sanchez MD Work Phone: [facility] Medical Surgical Unit MSU 4S Comment on above: Cellulitis of right lower extremity (Primary Dx); Acute cystitis without hematuria Start: 01-26-2024 End: 01-26-2024 Subsequent hospital visit by physician Komal Cohn DO Work Phone: [facility] US Imaging Comment on above: Chronic kidney disea se, stage 4 (severe) (HCC) Start: 01-17-2024 End: 04-17-2024 Transcribe Orders Komal Cohn DO Work Phone: [facility] Comment on above: Chronic kidney disea se, stage 4 (severe) (HCC) (Primary Dx) Start: 01-06-2024 Telephone encounter Komal Cohn DO Work Phone: [facility] Comment on above: Consult (Consult to nephrology, ckd chronic kidney disease state 4 gfr 15-29 confirm [id number]) Consult (Consult to ophthalmology, screening for diabetic retinopathy confirm [id number]) Start: 01-06-2024 End: 01-06-2024 Patient encounter procedure Komal Cohn DO Work Phone: [facility] Comment on above: Type 2 diabetes luz [...] kidney disease) stage 4, GFR 15-29 ml/min ([facility]) Start: 01-06-2024 End: 01-06-2024 [facility] Facility:[facility] Start: 12-16-2023 Telephone encounter Komal burnette Lalit DO Work Phone: [facility] Start: 12-07-2023 End: 12-07-2023 Patient encounter procedure Komal Cohn DO Work Phone: [facility] Comment on above: Dysuria (Primary Dx) ; Acute UTI; Chronic kidney disease, stage 3b (HCC); Bilateral leg edema; Other depression Start: 12-07-2023 End: 12-07-2023 [facility] Facility[facility] Start: 12-06-2023 Refill Jose davila MD Work Phone: [facility] Cardiology Comment on above: Coronary artery dise ase involving coronary bypass graft of [place] heart without angina pectoris Start: 09-28-2023 Refill Komal Rosenthalguanako yumiko Lalit DO Work Phone: [facility] Comment on above: Refill Request Start: 07-26-2023 Refill Komal Rosenthalar yumiko McbrideLalit DO Work Phone: [facility] Comment on above: Refill Request Start: 07-14-2023 Refill Komal Rosenthalguanako yumiko Lalit DO Work Phone: [facility] Comment on above: Refill Request Start: 06-29-2023 Telephone encounter Komal Mcbriderio DO Work Phone: [facility] Comment on above: Results (antibiotics ) Start: 06-27-2023 End: 06-27-2023 Patient encounter procedure Komal Cohn DO Work Phone: [facility] Comment on above: Type 2 diabetes luz itus with stage 3 chronic kidney disease, without long-term current use of insulin, unspecified whether stage 3a or 3b CKD (HCC) (Primary Dx); Primary hypertension; Recurrent UTI (urinary tract infection); Heart murmur; Obesity, Class I, BMI 30-34.9 Start: 04-26-2023 Refill Komal Rosenthalguanako Cohn DO Work Phone: [facility] Comment on above: Refill Request Start: 03-30-2023 End: 03-30-2023 Office outpatient visit 25 minutes Jose Rojas MD Work Phone: [facility] Cardiology Comment on above: Nonrheumatic aortic valve stenosis (Primary Dx) Start: 03-14-2023 End: 03-14-2023 Patient encounter procedure Komal Cohn DO Work Phone: [facility] Comment on above: Bilateral leg edema (Primary Dx); Cellulitis of skin; Class 1 obesity with body mass index (BMI) of 33.0 to 33.9 in adult, unspecified obesity type, unspecified whether serious comorbidity present Start: 03-08-2023 Telephone encounter Komal Gregorio yomaira Cohn DO Work Phone: [facility] Comment on above: Results Start: 03-07-2023 End: 03-07-2023 Subsequent hospital visit by physician Komal Cohn DO Work Phone: [facility] Vascular Lab Comment on above: Other specified soft tissue disorders Start: 03-07-2023 End: 03-07-2023 Patient encounter procedure Komal Cohn DO Work Phone: [facility] Comment on above: Urinary frequency (P rimary Dx); Right leg swelling; Cellulitis of skin; Bilateral leg edema; Class 1 obesity with body mass index (BMI) of 33.0 to 33.9 in adult, unspecified obesity type, unspecified whether serious comorbidity present Other specified soft tissue disorders (Primary Dx) Start: 03-07-2023 Refill Komal calderon Lalit DO Work Phone: [facility] Comment on above: Refill Request Start: 03-02-2023 Telephone encounter Komal Cohn DO Work Phone: [facility] Comment on above: Appointment Start: 02-18-2023 Refill Komal Mcbriderio DO Work Phone: [facility] Comment on above: Refill Request Start: 12-13-2022 Refill Komal Mcbriderio DO Work Phone: [facility] Comment on above: Refill Request Start: 12-09-2022 Telephone encounter Charley Parker APRN - METAL MELTER Work Phone: [facility] Cardiology Comment on above: Results (Echo) Start: 12-08-2022 End: 12-08-2022 Subsequent hospital visit by physician Charley Parker APRN - METAL MELTER Work Phone: [facility] Non-Invasive Cardiology Comment on above: Nonrheumatic aortic valve stenosis Start: 11-22-2022 Refill Komal Gerar d Lalit DO Work Phone: [facility] Comment on above: Refill Request Start: 11-17-2022 End: 11-19-2022 Emergency department patient visit Ajit G Nesheim DO Work Phone: [facility] CDU Comment on above: BARRY (acute kidney in jury) (CMS/HCC) (HCC) (Primary Dx); Cystitis Start: 11-10-2022 Telephone encounter Komal Cohn DO Work Phone: [facility] Comment on above: Patient Question Start: 10-18-2022 Refill Komal calderon Lalti DO Work Phone: [facility] Comment on above: Refill Request Start: 09-30-2022 End: 09-30-2022 Office outpatient visit 25 minutes Charley Parker WAITER/WAITRESS FORMAL - METAL MELTER Work Phone: [facility] Cardiology Comment on above: Nonrheumatic aortic valve stenosis (Primary Dx) Start: 09-18-2022 Refill Komal Mcbriderio DO Work Phone: [facility] Comment on above: Refill Request Start: 09-16-2022 Refill Komal calderon Lalit DO Work Phone: [facility] Comment on above: Refill Request Start: 08-23-2022 Refill Komal Mcbriderio DO Work Phone: [facility] Comment on above: Refill Request Start: 08-19-2022 Refill Komal calderon Lalit DO Work Phone: [facility] Comment on above: Refill Request (Losa rtan) Start: 08-16-2022 Refill Komal calderon Lalit DO Work Phone: [facility] Comment on above: Refill Request Start: 08-16-2022 End: 08-16-2022 Patient encounter procedure Komal Cohn DO Work Phone: [facility] Comment on above: Primary hypertension (Primary Dx); Hyperlipidemia, mixed; Bilateral leg edema; Hypothyroidism, acquired; Acute non-recurrent maxillary sinusitis Start: 08-03-2022 ambulatory Komal Cohn DO Work Phone: Electrocardiographic Technician Start: 05-03-2022 End: 05-03-2022 Patient encounter procedure Komal Cohn DO Work Phone: [facility] Comment on above: Primary hypertension (Primary Dx); Hyperlipidemia, mixed; Bilateral leg edema; Type 2 diabetes mellitus without complication, without long-term current use of insulin (HCC) Start: 04-29-2022 Telephone encounter Komal Cohn DO Work Phone: [facility] Comment on above: Patient Question Start: 04-28-2022 Telephone encounter Komal Cohn DO Work Phone: [facility] Comment on above: Patient Update Start: 04-27-2022 Telephone encounter Komal Cohn DO Work Phone: [facility] Comment on above: Patient Update; Orde rs Start: 04-14-2022 Telephone encounter Komal Cohn DO Work Phone: [facility] Comment on above: Orders (Increase las ix x 1 wk, bmp in one wk/) Start: 04-13-2022 Refill Komal Cohn DO Work Phone: [facility] Comment on above: Refill Request Start: 02-21-2022 Refill Komal Cohn DO Work Phone: [facility] Comment on above: Refill Request Start: 02-19-2022 Telephone encounter Komal Cohn DO Work Phone: [facility] Comment on above: Home Care Start: 01-19-2022 Telephone encounter Komal Cohn DO Work Phone: [facility] Comment on above: Patient Update Start: 01-05-2022 Telephone encounter Komal Cohn DO Work Phone: [facility] Comment on above: Results Start: 01-01-2022 Telephone encounter Komal Cohn DO Work Phone: [facility] Comment on above: Results; Orders Start: 12-24-2021 Refill Komal Cohn DO Work Phone: [facility] Comment on above: Refill Request Start: 12-23-2021 Telephone encounter Komal Cohn DO Work Phone: [facility] Comment on above: Medication Problem Start: 12-15-2021 Refill Komal Cohn DO Work Phone: [facility] Comment on above: Refill Request Start: 12-13-2021 End: 12-22-2021 Evaluation and management of inpatient J Azra John MD Work Phone: [facility] TELEMET[facility] Comment on above: Altered mental statu s, unspecified altered mental status type (Primary Dx); Urinary tract infection without hematuria, site unspecified; Acute cystitis without hematuria Start: 11-30-2021 End: 11-30-2021 Patient encounter procedure Komal Cohn DO Work Phone: [facility] Comment on above: Primary hypertension (Primary Dx); Mixed hyperlipidemia; Statin intolerance; Myalgias Start: 11-20-2021 Refill Komal calderon Lalit DO Work Phone: [facility] Comment on above: Refill Request Start: 09-04-2021 Refill Komal Cohn DO Work Phone: [facility] Comment on above: Refill Request; Refi ll Request Start: 09-04-2021 Telephone encounter Komal Cohn DO Work Phone: [facility] Comment on above: Consult (Cardiology) Start: 09-03-2021 End: 09-03-2021 Patient encounter procedure Komal Cohn DO Work Phone: [facility] Comment on above: Type 2 diabetes luz itus without complication, without long- term current use of insulin (HCC) (Primary Dx); Congestive heart failure, unspecified HF chronicity, unspecified heart failure type (HCC); Hyperlipidemia, mixed; Primary hypertension; Hypothyroidism, acquired Start: 07-28-2021 Refill Komal Cohn DO Work Phone: [facility] Comment on above: Refill Request; Refi ll Request Start: 07-18-2021 Refill Komal Cohn DO Work Phone: [facility] Comment on above: Refill Request; Refi ll Request Start: 05-28-2021 End: 05-28-2021 Patient encounter procedure Komal Cohn DO Work Phone: [facility] Comment on above: Primary hypertension (Primary Dx); Hyperlipidemia, mixed; Type 2 diabetes mellitus without complication, without long-term current use of insulin (HCC) Start: 03-23-2021 End: 03-23-2021 Refill Komal Cohn DO Work Phone: [facility] Comment on above: Refill Request Start: 02-25-2021 End: 02-25-2021 Refill Komal Maryanrodríguez Mcbriderio DO Work Phone: [facility] Comment on above: Refill Request Start: 02-25-2021 End: 02-25-2021 Patient encounter procedure Caputaasia Mcbriderio DO Work Phone: [facility] Comment on above: Primary hypertension (Primary Dx); Type 2 diabetes mellitus without complication, without long-term current use of insulin (HCC); Generalized edema; Hypokalemia Start: 02-21-2021 End: 02-21-2021 Refill Caputa Maryan Mcbriderio DO Work Phone: [facility] Comment on above: Refill Request Start: 11-26-2020 End: 11-26-2020 Patient encounter procedure Komal Cohn Work Phone: [facility] Comment on above: Essential hypertensi on (Primary Dx); Type 2 diabetes mellitus without complication, without long-term current use of insulin (HCC); Seasonal allergies Start: 11-24-2020 End: 11-24-2020 Refill Caputa Maryan Lalit Work Phone: [facility] Comment on above: Refill Request Start: 11-05-2020 End: 11-05-2020 Refill Komalasia Cohn Work Phone: [facility] Comment on above: Refill Request Start: 09-24-2020 End: 09-24-2020 Refill Komal Maryan Lalit Work Phone: [facility] Comment on above: Refill Request Start: 09-23-2020 End: 09-23-2020 Refill Komal Maryan Lalit Work Phone: [facility] Comment on above: Refill Request Start: 09-23-2020 End: 09-23-2020 Telephone encounter Komal Cohn Work Phone: [facility] Comment on above: Results Start: 09-17-2020 End: 09-17-2020 Patient encounter procedure External Provider [facility] Start: 09-17-2020 Results Only External Provider Exter nal-NonCCF Start: 09-03-2020 End: 09-03-2020 Telephone encounter Komal Cohn Work Phone: [facility] Comment on above: Orders (PTH) Patient Question (or emmanuel for edilson chow) Start: 08-29-2020 End: 08-29-2020 Refill Komal Cohn Work Phone: [facility] Comment on above: Refill Request Start: 08-29-2020 End: 08-29-2020 Subsequent hospital visit by physician Komal Cohn Work Phone: [facility] Vascular Lab Comment on above: Acute embolism and t hrombosis of other specified deep vein of right lower extremity (HCC) Start: 08-25-2019 End: 08-25-2019 Emergency department patient visit Komal Cohn DO Work Phone: [facility] ED Comment on above: Fall, initial encoun [...] Phone: Start: 07-04-2024 Comprehensive metabolic panel Danyell Stirnger MD Work Phone: Start: 07-03-2024 Glucose quantitative [...] Phone: Start: 06-29-2024 Comprehensive metabolic panel Stephanie Laughlin WAITER/WAITRESS FORMAL - [employer]AL MELTER Work Phone: Start: 06-29-2024 Manual Differential panel - Blood Stephanie Laughlin WAITER/WAITRESS FORMAL - [employer] Work Phone: Start: 06-28-2024 End: 06-28-2024 Blood count hematocrit Danyell Calderon Work Phone: Start: 06-28-2024 Blood count hematocrit Danyell Stringer MD Work Phone: Start: 06-28-2024 Blood count hematocrit Danyell Stringer MD Work Phone: Start: 06-28-2024 Glucose quantitative blood xcpt reagent strip Danyell Stringer MD Work Phone: Start: 06-28-2024 Comprehensive metabolic panel Stephanie Vazqueziersee WAITER/WAITRESS FORMAL - [facility] Work Phone: Start: 06-28-2024 Manual Differential panel - Blood Stephanie Laughlin WAITER/WAITRESS FORMAL - [facility] Work Phone: Start: 06-27-2024 End: 06-27-2024 Blood count hematocrit Danyell Calderon Work Phone: Start: 06-27-2024 Glucose quantitative blood [...] Phone: Start: 06-27-2024 Comprehensive metabolic panel Stephanie Vazqueziersee WAITER/WAITRESS FORMAL - [facility] Work Phone: Start: 06-27-2024 Manual Differential panel - Blood Stephanie Laughlin WAITER/WAITRESS FORMAL - [facility] Work Phone: Start: 06-27-2024 Blood count hematocrit Danyell Stringer MD Work Phone: Start: 06-27-2024 Glucose quantitative blood xcpt reagent strip Danyell Stringer MD Work Phone: Start: 06-26-2024 Compatibility each u nit electronic Donna Del Angel WAITER/WAITRESS FORMAL - [facility] Work Phone: Start: 06-26-2024 End: 06-27-2024 TRANSFUSE RED BLOOD CELLS Donna M Bi ca WAITER/WAITRESS FORMAL - [employer] Work Phone: Start: 06-26-2024 End: 06-26-2024 Blood count hematocrit Danyell Calderon Work Phone: Start: 06-26-2024 Electroencephalogram Jacques [...] MD Work Phone: Start: 06-26-2024 Antibody screen DANYELL STRINGER Comment on above: Performed By: #### L [id number], [id number], [id number] #### Microbiology Manager: RUTH ANN BRAGG ([id number]) [facility] [address] [place] [address] Start: 06-26-2024 Antibody screen rbc each serum technique Erinn Saavedra MD Work Phone: Start: 06-26-2024 Ct abdomen & pelvis w/o contrast material Erinn Saavedra MD Work Phone: Start: 06-26-2024 Ct head/brain w/o co ntrast material Erinn Saavedra MD Work Phone: Start: 06-26-2024 End: 06-26-2024 Comprehensive metabolic panel Erinn Saavedra MD Work Phone: Start: 06-26-2024 End: 06-26-2024 Blood count complete auto&auto difrntl wbc Erinn Saavedra MD Work Phone: Start: 06-25-2024 Assay of troponin quantitative Erinn Saavedra MD Work Phone: Start: 06-25-2024 Blood occult peroxid ase actv qual feces 1-3 spec Erinn Saavedra MD Work Phone: Start: 06-25-2024 Glucose quantitative blood xcpt reagent strip Erinn Saavedra MD Work Phone: Start: 06-25-2024 Assay of troponin quantitative Lawson Melvin PA-C Work Phone: Start: 06-25-2024 Radiologic exam ches t single view Lawson Omi Olegario PA-C Work Phone: Start: 06-25-2024 HC SARSCOV2&INF A&B& RSV AMP PRB Kaiden David MD Work Phone: Start: 06-25-2024 Culture bacterial qu anttative colony count urine Lawson Omi HarmonOlegario PA-C Work Phone: Start: 06-25-2024 Urinalysis complete panel - Urine Lawson Omi Olegario PA-C Work Phone: Start: 06-25-2024 Ct head/brain w/o co ntrast material Lawson Omi Olegario PA-C Work Phone: Start: 06-25-2024 End: 06-25-2024 Comprehensive metabolic panel Lawson Wolfbvre PA-C Work Phone: Start: 06-25-2024 Ecg routine ecg w/le ast 12 lds trcg only w/o i&r Lawson Omi Olegario PA-C Work Phone: Start: 06-01-2024 Glucose quantitative blood xcpt reagent strip Damien Marie MD Work Phone: Start: 06-01-2024 Radiologic exam chest 2 views Kyung Hogan WAITER/WAITRESS FORMAL - [employer] Work Phone: Start: 06-01-2024 Glucose quantitative blood xcpt reagent strip Damien Marie MD Work Phone: Start: 06-01-2024 Basic metabolic pane l calcium total Louise Garza MD Work Phone: Start: 06-01-2024 Ecg routine ecg w/le ast 12 lds trcg only w/o i&r Surjit Shaub DO Work Phone: Start: 05-31-2024 Glucose quantitative blood xcpt reagent strip Otfrtasha Marie MD Work Phone: Start: 05-31-2024 Glucose quantitative blood xcpt reagent strip Damien Marie MD Work Phone: Start: 05-31-2024 Ecg routine ecg w/le ast 12 lds trcg only w/o i&r Pravin Poole MD Work Phone: Start: 05-31-2024 Electrophysiology study Kyung Jayy Hogan WAITER/WAITRESS FORMAL - [employer] Work Phone: Start: 05-31-2024 Glucose quantitative blood [...] of thyroid sti mulating hormone tsh Surjit Shaub DO Work Phone: Start: 05-30-2024 Glucose quantitative [...] olume] in Serum or Plasma Kyung Hogan WAITER/WAITRESS FORMAL - [employer] Work Phone: Start: 05-30-2024 Assay of troponin [...] artl ld abdl/pel/scrot&/rpr orgn com Le Dobson WAITER/WAITRESS FORMAL - [employer] Work Phone: Start: 04-18-2024 Echo tthrc r-t 2d w/ wom-mode compl spec&colr d Jose Rojas MD Work Phone: Start: 02-02-2024 Glucose quantitative blood xcpt reagent strip Terence Gonzalez MD Work Phone: Start: 02-02-2024 Glucose quantitative blood xcpt reagent strip Terence Gonzalez MD Work Phone: Start: 02-02-2024 Comprehensive metabolic panel Shemar Rosalesgt DO Work Phone: Start: 02-01-2024 Glucose quantitative [...] 02-01-2024 Manual Differential panel - Blood Shemar Fabricio DO Work Phone: Start: 01-31-2024 Glucose quantitative [...] 01-31-2024 Manual Differential panel - Blood Shemar Fabricio DO Work Phone: Start: 01-30-2024 Glucose quantitative blood xcpt reagent strip Shemar Fabricio DO Work Phone: Start: 01-30-2024 Radiologic exam ches t single view Shemar Fabricio DO Work Phone: Start: 01-30-2024 Glucose quantitative blood xcpt reagent strip Shemar Fabricio DO Work Phone: Start: 01-30-2024 Glucose quantitative blood xcpt reagent strip Shemar Fabricio DO Work Phone: Start: 01-30-2024 Glucose quantitative blood xcpt reagent strip Shemar Regalado DO Work Phone: Start: 01-30-2024 Dup-scan xtr veins c omplete bilateral study Sukhi Maurer MD Work Phone: Start: 01-30-2024 Urnls dip stick/tabl et reagent auto microscopy Jose Morillo MD Work Phone: Start: 01-30-2024 Radiologic exam ches t single view Jose Morillo MD Work Phone: Start: 01-30-2024 Comprehensive metabolic panel Sukhi Maurer MD Work Phone: Start: 01-29-2024 Glucose quantitative blood xcpt reagent strip Shemar Regalado DO Work Phone: Start: 01-29-2024 Glucose quantitative blood xcpt reagent strip Shemar Regalado DO Work Phone: Start: 01-29-2024 End: 01-29-2024 Chloride urine [place] Deal Travagliante WAITER/WAITRESS FORMAL - [employer] Work Phone: Start: 01-29-2024 Glucose quantitative blood [...] Phone: Start: 01-06-2024 Hemoglobin A1c/Hemoglobin.total in Blood Caputa Maryan Cohn DO Work Phone: Start: 12-07-2023 Urnls dip stick/tabl et rgnt auto w/o microscopy [facility] DO Work Phone: Start: 06-27-2023 Culture bacterial qu anttative colony count urine Caputa Maryan Cohn DO Work Phone: Start: 06-27-2023 Urnls dip stick/tabl et rgnt auto w/o microscopy [facility] C[facility] DO Work Phone: Start: 06-27-2023 Hemoglobin A1c/Hemoglobin.total in Blood [facility] Cohn DO Work Phone: Start: 03-07-2023 Dup-scan xtr veins unilateral/limited study [facility] DO Work Phone: Start: 03-07-2023 Urnls dip stick/tabl et rgnt auto w/o microscopy [facility] C[facility] DO Work Phone: Start: 12-08-2022 Echo tthrc r-t 2d w/ wom-mode compl spec&colr d Charley Parker WAITER/WAITRESS FORMAL - [employer] Work Phone: Start: 11-19-2022 Glucose quantitative blood xcpt reagent strip Pola Henderson MD Work Phone: Start: 11-19-2022 Glucose quantitative blood xcpt reagent strip Pola Henderson MD Work Phone: Start: 11-19-2022 Comprehensive metabolic panel Katherine Donato [facility] [employer] [facility] Work Phone: Start: 11-19-2022 Manual differential performed [Presence] in Blood Katherine Donato WAITER/WAITRESS FORMAL [employer] [facility] Work Phone: Start: 11-18-2022 Glucose quantitative blood xcpt reagent strip Pola Henderson MD Work Phone: Start: 11-18-2022 Glucose quantitative blood xcpt reagent strip Pola Henderson MD Work Phone: Start: 11-18-2022 Glucose quantitative blood xcpt reagent strip Pola Henderson MD Work Phone: Start: 11-18-2022 Basic metabolic pane l calcium total Jessicabisi Paulino [facility] [employer] [facility] Work Phone: Start: 11-18-2022 SARS-COV-2, FLU A/B, AND RSV COMBO Ajit Jg Gray DO Work Phone: Start: 11-18-2022 Bacteria identified in Blood by Culture Ajit G Ronna DO Work Phone: Start: 11-18-2022 Comprehensive metabolic panel Ajit G Estelaheim DO Work Phone: Start: 11-17-2022 Radiologic exam ches t single view Ajit G Ronna DO Work Phone: Start: 11-17-2022 Culture bacterial qu anttative colony count urine Ajit G Ronna DO Work Phone: Start: 11-17-2022 Urinalysis complete panel - Urine Krunal Alford DO Work Phone: Start: 11-17-2022 Glucose quantitative blood xcpt reagent strip Ajit G Estelaheim DO Work Phone: Start: 08-25-2022 Thyrotropin [Units/v olume] in Serum or Plasma Charley Parker [facility] [employer] [facility] Work Phone: Start: 05-17-2022 Gluc bld gluc mntr d ev cleared fda spec home use Terence Gonzalez MD Work Phone: Start: 12-22-2021 Gluc bld gluc mntr d ev cleared fda spec home use Terence Gonzalez MD Work Phone: Start: 12-22-2021 Gluc bld gluc mntr d ev cleared fda spec home use Terence Gonzalez MD Work Phone: Start: 12-22-2021 Blood count complete auto&auto difrntl wbc Terencerafa Gonzalez MD Work Phone: Start: 12-21-2021 Gluc bld gluc mntr d ev cleared fda spec home use Terence Gonzalez MD Work Phone: Start: 12-21-2021 Gluc bld gluc mntr d ev cleared fda spec home use Terence Gonzalez MD Work Phone: Start: 12-21-2021 HOME O2 EVAL (DESATU RATION SCREEN) Sue Tripathi APRN [facility] Work Phone: Start: 12-21-2021 Gluc bld [...] ev cleared fda spec home use Linda John MD Work Phone: Start: 12-20-2021 Blood count [...] d ev cleared fda spec home use J Azra John MD Work Phone: Start: 12-17-2021 Assay of magnesium Pram ajay Gonzalez MD Work Phone: Start: 12-16-2021 Gluc [...] Work Phone: Start: 12-16-2021 Assay of magnesium Pram od Lisa BRUNNER Work Phone: Start: 12-15-2021 [...] Start: 12-14-2021 End: 12-14-2021 Comprehensive metabolic panel Ternece graves MD Work Phone: Start: 12-14-2021 Gluc [...] Phone: Start: 12-13-2021 Assay of lactate Linda John MD Work Phone: Start: 12-13-2021 Culture bacterial bl ood aerobic w/id isolates Linda John MD Work Phone: Start: 12-13-2021 CULTURE, BLOOD 1 Linda John MD Work Phone: Start: 12-13-2021 ADD ON LAB TEST Linda John MD Work Phone: Start: 12-13-2021 Ct head/brain w/o co ntrast material Linda John MD Work Phone: Start: 12-13-2021 Basic metabolic pane l calcium total Linda John MD Work Phone: Start: 12-13-2021 Culture bacterial qu anttative colony count urine Linda John MD Work Phone: Start: 12-13-2021 Urnls dip stick/tabl et rgnt auto w/o microscopy Linda John MD Work Phone: Start: 09-03-2021 Adult depression scr eening assessment [facility] DO Work Phone: Start: 09-17-2020 EXTERNAL IMAGING Cane 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 al Provider Start: 08-29-2020 Dup-scan xtr veins unilateral/limited study [facility] Work Phone: Start: 08-28-2020 Adult depression scr eening assessment [facility] Start: 08-25-2019 Ct head/brain w/o co ntrast material Melanie Padilla PA-C Work Phone: Start: 08-25-2019 Radiologic exam ches t single view Melanie Padilla PA-C Work Phone: Start: 08-25-2019 Radiologic examinati on knee 3 views Melanie Padilla PA-C Work Phone: Plan of Treatment Date Care Activity Detail Author Start: 03-28-2026 Creatinine measurement Creatinine Level [facility] Start: 03-28-2026 Potassium measurement Potassium Level [facility] Start: 08-21-2025 End: 08-21-2025 Patient encounter procedure 08/21/2025 3:20 PM EST Office Visit [facility] [address] [place] [phone] Jose Rojas MD [address] [place] [address] [facility] Start: 07-04-2025 Complete blood count Hemoglobin/Hematocrit [facility] Start: 07-04-2025 Creatinine measurement [facility] Start: 07-04-2025 Diabetes: Estimated Glomerular Filtration Rate for Kidney Health Diabetes: Estimated Glomerular Filtration Rate for Kidney Health [facility] Start: 07-04-2025 Potassium measurement [facility] Start: 07-04-2025 [facility] Start: 06-11-2025 Annual PCP Team Chronic Disease Visit Annual PCP Team Chronic Disease Visit [facility] Start: 06-06-2025 End: 06-06-2025 Professional / ancillary services management 06/06/2025 11:30 AM EDT Ancillary Procedure [facility] [address] [place] [id number] [facility] Start: 06-01-2025 Complete blood count Hemoglobin/Hematocrit [facility] Start: 06-01-2025 Creatinine measurement [facility] Start: 06-01-2025 Potassium measurement Potassium Level [facility] Start: 05-30-2025 Thyroid stimulating hormone measurement TSH Level [facility] Start: 05-15-2025 End: 05-15-2025 Patient encounter procedure 05/15/2025 11:20 AM EDT Office Visit [facility] [address] [place] [phone] Jose Rojas MD [address] [place] [address] [facility] Start: 04-27-2025 Annual PCP Team Chronic Disease Visit Annual PCP Team Chronic Disease Visit [facility] Start: 04-18-2025 Echocardiography Echocardiogram [facility] Start: 04-18-2025 [facility] Start: 04-10-2025 End: 03-26-2026 CBC W Auto Differential panel - Blood CBC auto differential Lab Routine Essential hypertension Second degree heart block Expected: 04/10/2025 (Approximate), Expires: 03/26/2026 [facility] Comment on above: Expected: 04/10/2025 (Approximate), Expi res: 03/26/2026 Start: 04-08-2025 COVID-19 Vaccine () COVID-19 Vaccine () [facility] Start: 04-08-2025 Influenza vaccination [facility] Start: 03-27-2025 End: 03-27-2025 ambulatory [facility] Start: 03-27-2025 End: 03-27-2025 Patient encounter procedure [facility] Start: 03-26-2025 End: 03-26-2026 Comprehensive metabolic 1998 panel - Serum or Plasma Comprehensive metabolic panel Lab Routine Essential hypertension Second degree heart block Expected: 03/26/2025 (Approximate), Expires: 03/26/2026 [facility] Work Phone: Comment on above: Expected: 03/26/2025 (Approximate), Expi res: 03/26/2026 Start: 03-26-2025 Creatinine measurement [facility] Start: 03-26-2025 Potassium measurement Potassium Level [facility] Start: 03-20-2025 Creatinine measurement Creatinine Level [facility] Start: 03-20-2025 Potassium measurement Potassium Level [facility] Start: 03-16-2025 Annual PCP Team Chronic Disease Visit Annual PCP Team Chronic Disease Visit [facility] Start: 03-16-2025 BP Controlled (<130/80) BP Controlled (<130/80) [facility] Start: 03-06-2025 End: 03-06-2025 Professional / ancillary services management 03/06/2025 3:00 PM EDT Ancillary Procedure [facility] [place] [address] [place] [phone] [facility] [place] Start: 02-26-2025 Annual PCP Team Chronic Disease Visit Annual PCP Team Chronic Disease Visit [facility] Start: 02-01-2025 Complete blood count Hemoglobin/Hematocrit [facility] Start: 02-01-2025 Creatinine measurement [facility] Start: 02-01-2025 Potassium measurement Potassium Level [facility] Start: 01-28-2025 Diabetes: Urine Albumin-Creatinine Ratio for Kidney Health Diabetes: Urine Albumin-Creatinine Ratio for Kidney Health [facility] Start: 01-28-2025 [facility] Start: 01-05-2025 Annual PCP Team Chronic Disease Visit Annual PCP Team Chronic Disease Visit [facility] Start: 01-05-2025 Diabetic foot examination Diabetic Foot Exam [facility] Start: 12-13-2024 Creatinine measurement Serum Creatinine [facility] Start: 12-06-2024 Annual PCP Team Chronic Disease Visit Annual PCP Team Chronic Disease Visit [facility] Start: 12-06-2024 BP Controlled (<130/80) BP Controlled (<130/80) [facility] in Start: 11-29-2024 End: 11-29-2024 Professional / ancillary services management 11/29/2024 1:00 PM EDT Ancillary Procedure [facility] [place] [address] [place] [phone] [facility] [place] Start: 11-16-2024 End: 11-16-2024 Patient encounter procedure 11/16/2024 3:00 PM EDT Office Visit [facility] [place] [address] [place] [phone] Pravin Poole MD [address] [place] [address] [facility] [place] Start: 08-31-2024 End: 08-31-2024 ambulatory [facility] [place] Start: 08-31-2024 End: 08-31-2024 Patient encounter procedure 08/31/2024 1:15 PM EST Office Visit [facility] [place] [address] [place] [phone] Pravin Poole MD [address] [place] [address] [facility] [place] Start: 08-30-2024 End: 08-30-2024 ambulatory [facility] [place] Start: 08-30-2024 End: 08-30-2024 Professional / ancillary services management 08/30/2024 9:00 AM EST Ancillary Procedure [facility] [place] [address] [place] [phone] [facility] [place] Start: 08-08-2024 Medicare Advantage Annual Wellness Visit Medicare [facility] Annual Wellness Visit [facility] Start: 07-29-2024 Hemoglobin A1c measurement HbA1C [facility] Start: 07-20-2024 End: 07-20-2024 Patient encounter procedure 07/20/2024 2:15 PM EST Office Visit [facility] [place] [address] [place] [address] Komal Cohn DO [address] [place] [address] f/u 3 months [facility] Comment on above: f/u 3 months Start: 07-07-2024 Hemoglobin A1c measurement HbA1C [facility] Start: 06-27-2024 Annual PCP Team Chronic Disease Visit Annual PCP Team Chronic Disease Visit [facility] Start: 06-27-2024 BP Controlled (<130/80) BP Controlled (<130/80) [facility] Start: 06-20-2024 End: 06-20-2024 Professional / ancillary services management 06/20/2024 1:00 PM EST Ancillary Procedure [facility] [place] [address] [place] [phone] [facility] [place] Start: 06-11-2024 End: 06-11-2024 Patient encounter procedure 06/11/2024 1:00 PM EST Office Visit [facility] [address] [place] [address] Komal Cohn DO [address] [place] [address] hosp fu [facility] Comment on above: hosp fu Start: 06-01-2024 End: 06-01-2025 Basic metabolic 1998 panel - Serum or Plasma Basic metabolic panel Lab Routine BARRY (acute kidney injury) (HCC) Expected: 06/01/2024 (Approximate), Expires: 06/01/2025 [facility] Work Phone: Comment on above: Expected: 06/01/2024 (Approximate), Expi res: 06/01/2025 Start: 04-27-2024 End: 04-27-2024 Patient encounter procedure 04/27/2024 4:15 PM EDT Office Visit [facility] [address] [place] [address] Komal Cohn DO [address] [place] [address] 3 mos ck up [facility] Comment on above: 3 mos ck up Start: 04-25-2024 End: 04-25-2024 Patient encounter procedure [facility] Start: 04-18-2024 End: 04-18-2024 Patient encounter procedure 04/18/2024 1:00 PM EDT Appointment [facility] Non-Invasive Cardiology [address] [place] [address] Jose Rojas MD [address] [place] [address] [facility] Non-Invasive Cardiology Start: 04-13-2024 End: 04-13-2024 Patient encounter procedure 04/13/2024 4:00 PM EDT Office Visit [facility] [address] [place] [address] Komal Cohn DO [address] [place] [address] 3 mos ck up [facility] Comment on above: 3 mos ck up Start: 04-08-2024 Covid-19 Vaccine ( season) Covid-19 Vaccine ( season) [facility] Start: 04-08-2024 Covid-19 Vaccine () Covid-19 Vaccine () [facility] Start: 04-08-2024 Influenza vaccination [facility] Start: 04-08-2024 [facility] Start: 04-06-2024 End: 04-06-2024 Patient encounter procedure 04/06/2024 11:00 AM EDT Office Visit [facility] [address] [place] [phone] Komal Cohn [address] [place] [id number] f/u 3 months [facility] Comment on above: f/u 3 months Start: 04-04-2024 End: 04-04-2024 Patient encounter procedure 04/04/2024 1:00 PM EDT Appointment [facility] Non-Invasive Cardiology [address] [place] [phone] [facility] Non-Invasive Cardiology Start: 03-26-2024 End: 03-21-2025 Basic metabolic 1997 panel - Serum or Plasma Basic metabolic panel Lab Routine Nonrheumatic aortic valve stenosis Acute renal failure superimposed on stage 4 chronic kidney disease, unspecified acute renal failure type (HCC) Expected: 03/26/2024 (Approximate), Expires: 03/21/2025 [facility] Work Phone: Comment on above: Expected: 03/26/2024 (Approximate), Expi res: 03/21/2025 Start: 03-19-2024 End: 03-14-2025 Basic metabolic 1997 panel - Serum or Plasma Basic metabolic panel Lab Routine Coronary artery disease involving coronary bypass graft of [place] heart without angina pectoris Nonrheumatic aortic valve stenosis Expected: 03/19/2024 (Approximate), Expires: 03/14/2025 [facility] Work Phone: Comment on above: Expected: 03/19/2024 (Approximate), Expi res: 03/14/2025 Start: 03-16-2024 End: 03-16-2024 Patient encounter procedure 03/16/2024 3:15 PM EDT Office Visit [facility] [address] [place] [address] Lalit Caputa Maryan [address] [place] [address] [facility] Comment on above: [facility] Start: 03-14-2024 ANNUAL PCP TEAM CHRONIC DISEASE VISIT ANNUAL PCP TEAM CHRONIC DISEASE VISIT [facility] Start: 03-14-2024 End: 03-14-2026 [facility] Transthoracic Transthoracic echocardiogram (TTE) complete with contrast, bubble, strain, and 3D PRN CV Echocardiography Routine Coronary artery disease involving coronary bypass graft of [place] heart without angina pectoris Nonrheumatic aortic valve stenosis Expected: 03/14/2024 (Approximate), Expires: 03/14/2026 [facility] Comment on above: Expected: 03/14/2024 (Approximate), Expi res: 03/14/2026 Start: 03-07-2024 ANNUAL PCP TEAM CHRONIC DISEASE VISIT ANNUAL PCP TEAM CHRONIC DISEASE VISIT [facility] Start: 03-07-2024 End: 03-07-2024 Patient encounter procedure 03/07/2024 10:20 AM EDT Office Visit [facility] Cardiology [address] [place] [address] Jose Rojas MD [address] [place] [address] [facility] Start: 02-27-2024 End: 02-27-2024 Patient encounter procedure 02/27/2024 3:15 PM EDT [facility] [address] [place] [address] Komal Cohn, DO [address] [place] [id number] TCM [facility] Comment on above: TCM Start: 01-06-2024 End: 04-06-2024 Basic metabolic 2000 panel - Serum or Plasma BASIC METABOLIC PANEL Lab Routine CKD (chronic kidney disease) stage 4, GFR 15-29 ml/min ([facility]) Expected: 01/06/2024, Expires: 04/06/2024 [facility] Comment on above: Expected: 01/06/2024, Expires: Start: 01-06-2024 End: 01-06-2024 Patient encounter procedure 01/06/2024 1:00 PM EDT Office Visit [facility] [address] [place] [address] Lalit Komalasia Luna, [address] [address] 4 week f/u [facility] Comment on above: 4 week f/u Start: 12-26-2023 Hemoglobin A1c measurement HbA1C [facility] Start: 12-26-2023 Hemoglobin A1c/Hemoglobin.total in Blood HbA1C [facility] Start: 12-14-2023 ANNUAL PCP TEAM CHRONIC DISEASE VISIT ANNUAL PCP TEAM CHRONIC DISEASE VISIT [facility] Start: 12-14-2023 End: 03-14-2024 Basic metabolic 2000 panel - Serum or Plasma BASIC METABOLIC PANEL Lab Routine Bilateral leg edema Expected: 12/14/2023, Expires: 03/14/2024 [facility] Comment on above: Expected: 12/14/2023, Expires: Start: 12-09-2023 Echocardiography Echocardiogram [facility] Start: 12-03-2023 Complete blood count Hemoglobin/Hematocrit [facility] Start: 12-03-2023 Creatinine measurement Serum Creatinine [facility] Start: 12-03-2023 HEMOGLOBIN/HEMATOCRIT HEMOGLOBIN/HEMATOCRIT [facility] Start: 12-03-2023 SERUM CREATININE SERUM CREATININE [facility] Start: 11-23-2023 ANNUAL PCP TEAM CHRONIC DISEASE VISIT ANNUAL PCP TEAM CHRONIC DISEASE VISIT [facility] Start: 11-23-2023 BP CONTROLLED (<130/80) BP CONTROLLED (<130/80) [facility] Start: 11-20-2023 Creatinine measurement Creatinine Level [facility] Start: 11-20-2023 Potassium measurement Potassium Level [facility] Start: 08-25-2023 HEMOGLOBIN/HEMATOCRIT HEMOGLOBIN/HEMATOCRIT [facility] Start: 08-25-2023 Hepatitis B surface antibody level LDL CHOLESTEROL [facility] Start: 08-25-2023 SERUM CREATININE SERUM CREATININE [facility] Start: 08-25-2023 Thyroid stimulating hormone measurement TSH Level [facility] Start: 08-16-2023 ANNUAL PCP TEAM CHRONIC DISEASE VISIT ANNUAL PCP TEAM CHRONIC DISEASE VISIT [facility] Start: 08-08-2023 Advance Directive Discussion Advance Directive Discussion [facility] Start: 08-08-2023 Depression Assessment Depression Assessment [facility] Start: 08-08-2023 Medicare Advantage Annual Wellness Visit Medicare [facility] Annual Wellness Visit [facility] Start: 08-08-2023 [facility] Start: 06-29-2023 End: 09-28-2023 Bacteria identified in Urine by Culture URINE CULTURE Microbiology Routine Recurrent UTI (urinary tract infection) Expected: 06/29/2023, Expires: 09/28/2023 [facility] Work Phone: Comment on above: Expected: 06/29/2023, Expires: 4 Start: 06-27-2023 End: 09-26-2023 Bacteria identified in Urine by Culture URINE CULTURE Microbiology Routine Recurrent UTI (urinary tract infection) Expected: 06/27/2023, Expires: 09/26/2023 [facility] Work Phone: Comment on above: Expected: 06/27/2023, Expires: 4 Start: 05-24-2023 Hemoglobin A1c/Hemoglobin.total in Blood HBA1C [facility] Start: 05-03-2023 ANNUAL PCP TEAM CHRONIC DISEASE VISIT ANNUAL PCP TEAM CHRONIC DISEASE VISIT [facility] Start: 05-03-2023 BP CONTROLLED (<130/80) BP CONTROLLED (<130/80) [facility] Start: 04-08-2023 Covid-19 Vaccine ( season) Covid-19 Vaccine () [facility] Start: 04-08-2023 Influenza vaccination [facility] Start: 03-30-2023 End: 03-30-2023 Patient encounter procedure [facility] Start: 03-22-2023 Glaucoma screening Diabetes: Retinopathy Screening [facility] Start: 01-18-2023 ANNUAL PCP TEAM CHRONIC DISEASE VISIT ANNUAL PCP TEAM CHRONIC DISEASE VISIT [facility] Start: 01-18-2023 BP CONTROLLED (<130/80) BP CONTROLLED (<130/80) [facility] Start: 12-28-2022 Lipid panel Lipid [place] Start: 12-28-2022 Lipid screen Lipid screen [facility] Work Phone: Start: 12-18-2022 Creatinine measurement Creatinine Level [facility] Start: 12-18-2022 Potassium measurement Potassium Level [facility] Start: 12-08-2022 End: 12-08-2022 Patient encounter procedure [facility] [employer] Start: 11-30-2022 ANNUAL PCP TEAM CHRONIC DISEASE VISIT ANNUAL PCP TEAM CHRONIC DISEASE VISIT [facility] Start: 10-31-2022 Hemoglobin A1c/Hemoglobin.total in Blood HBA1C [facility] Start: 09-30-2022 End: 09-30-2024 US Heart Transthoracic Transthoracic echocardiogram (TTE) complete with contrast, bubble, strain, and 3D PRN CV Echocardiography Routine Nonrheumatic aortic valve stenosis Expected: 09/30/2022 (Approximate), Expires: 09/30/2024 [facility] Work Phone: Comment on above: Expected: 09/30/2022 (Approximate), Expi res: 09/30/2024 Start: 09-21-2022 Glaucoma screening Diabetes: Retinopathy Screening [facility] Start: 09-16-2022 Hepatitis B surface antibody level LDL CHOLESTEROL [facility] Start: 09-03-2022 Adult depression screening assessment DEPRESSION SCREENING [facility] Start: 09-03-2022 ANNUAL PCP TEAM CHRONIC DISEASE VISIT ANNUAL PCP TEAM CHRONIC DISEASE VISIT [facility] Start: 08-16-2022 End: 10-16-2022 CBC W Auto Differential panel - Blood CBC + DIFF Lab Routine Hyperlipidemia, mixed Expected: 08/16/2022, Expires: 10/16/2022 [facility] Work Phone: Comment on above: Expected: 08/16/2022, Expires: 3 Start: 08-16-2022 End: 10-16-2022 Comprehensive metabolic 2000 panel - Serum or Plasma COMP METABOLIC PANEL Lab Routine Hyperlipidemia, mixed Expected: 08/16/2022, Expires: 10/16/2022 [facility] Work Phone: Comment on above: Expected: 08/16/2022, Expires: 3 Start: 08-16-2022 End: 10-16-2022 Lipid 1996 panel - Serum or Plasma LIPID PANEL BASIC Lab Routine Hyperlipidemia, mixed Expected: 08/16/2022, Expires: 10/16/2022 [facility] Work Phone: Comment on above: Expected: 08/16/2022, Expires: 3 Start: 08-16-2022 End: 10-16-2022 Thyrotropin [Units/volume] in Serum or Plasma TSH BLD Lab Routine Hypothyroidism, acquired Expected: 08/16/2022, Expires: 10/16/2022 [facility] Work Phone: Comment on above: Expected: 08/16/2022, Expires: 3 Start: 08-16-2022 End: 10-16-2022 Urinalysis complete panel - Urine URINALYSIS, WITH MICROSCOPIC Lab Routine Hyperlipidemia, mixed Expected: 08/16/2022, Expires: 10/16/2022 [facility] Work Phone: Comment on above: Expected: 08/16/2022, Expires: 3 Start: 08-08-2022 ADVANCE DIRECTIVE DISCUSSION ADVANCE DIRECTIVE DISCUSSION [facility] Start: 08-08-2022 DEPRESSION ASSESSMENT DEPRESSION ASSESSMENT [facility] Start: 08-03-2022 End: 10-03-2022 ALBUMIN/CREAT RATIO RND UR ALBUMIN/CREAT RATIO RND UR Lab Routine Diabetes (HCC) Expected: 08/03/2022, Expires: 10/03/2022 [facility] Work Phone: Comment on above: Expected: 08/03/2022, Expires: 3 Start: 08-03-2022 End: 10-03-2022 CBC panel - Blood by Automated count CBC Lab Routine Diabetes (HCC) Expected: 08/03/2022, Expires: 10/03/2022 [facility] Work Phone: Comment on above: Expected: 08/03/2022, Expires: 3 Start: 08-03-2022 End: 10-03-2022 SCHEDULE LAB TESTING SCHEDULE LAB TESTING Lab Routine Expected: 08/03/2022, Expires: 10/03/2022 [facility] Work Phone: Comment on above: Expected: 08/03/2022, Expires: 3 Start: 08-03-2022 End: 10-03-2022 Thyrotropin [Units/volume] in Serum or Plasma TSH BLD Lab Routine Hypothyroidism, acquired Expected: 08/03/2022, Expires: 10/03/2022 [facility] Work Phone: Comment on above: Expected: 08/03/2022, Expires: 3 Start: 05-28-2022 ANNUAL PCP TEAM CHRONIC DISEASE VISIT ANNUAL PCP TEAM CHRONIC DISEASE VISIT [facility] Start: 05-11-2022 End: 07-11-2022 Basic metabolic 2000 panel - Serum or Plasma BASIC METABOLIC PNL Lab Routine CKD (chronic kidney disease) stage 1, GFR 90 ml/min or greater Expected: 05/11/2022, Expires: 07/11/2022 [facility] Work Phone: Comment on above: Expected: 05/11/2022, Expires: 2 Start: 04-26-2022 End: 06-26-2022 Basic metabolic 2000 panel - Serum or Plasma BASIC METABOLIC PNL Lab Routine Hypokalemia Expected: 04/26/2022, Expires: 06/26/2022 [facility] Work Phone: Comment on above: Expected: 04/26/2022, Expires: 2 Start: 04-08-2022 Influenza vaccination [facility] Start: 03-16-2022 Hemoglobin A1c/Hemoglobin.total in Blood HBA1C [facility] Start: 02-25-2022 ANNUAL PCP TEAM CHRONIC DISEASE VISIT ANNUAL PCP TEAM CHRONIC DISEASE VISIT [facility] Start: 01-01-2022 End: 03-03-2022 CBC W Auto Differential panel - Blood CBC + DIFF Lab Routine Anemia, unspecified type Expected: 01/01/2022, Expires: 03/03/2022 [facility] Work Phone: Comment on above: Expected: 01/01/2022, Expires: 2 Start: 01-01-2022 End: 03-03-2022 Cobalamin (Vitamin B12) [Mass/volume] in Serum or Plasma VITAMIN B12 BLOOD Lab Routine Anemia, unspecified type Expected: 01/01/2022, Expires: 03/03/2022 [facility] Work Phone: Comment on above: Expected: 01/01/2022, Expires: 2 Start: 01-01-2022 End: 03-03-2022 Ferritin [Mass/volume] in Serum or Plasma FERRITIN BLD Lab Routine Anemia, unspecified type Expected: 01/01/2022, Expires: 03/03/2022 [facility] Work Phone: Comment on above: Expected: 01/01/2022, Expires: 2 Start: 01-01-2022 End: 03-03-2022 Folate [Mass/volume] in Serum or Plasma FOLATE SERUM Lab Routine Anemia, unspecified type Expected: 01/01/2022, Expires: 03/03/2022 [facility] Work Phone: Comment on above: Expected: 01/01/2022, Expires: 2 Start: 01-01-2022 End: 03-03-2022 Iron and Iron binding capacity panel - Serum or Plasma IRON + TIBC Lab Routine Anemia, unspecified type Expected: 01/01/2022, Expires: 03/03/2022 [facility] Work Phone: Comment on above: Expected: 01/01/2022, Expires: 2 Start: 01-01-2022 End: 03-03-2022 RETIC COUNT RETIC COUNT Lab Routine Anemia, unspecified type Expected: 01/01/2022, Expires: 03/03/2022 [facility] Work Phone: Comment on above: Expected: 01/01/2022, Expires: 2 Start: 12-29-2021 End: 12-22-2022 CBC panel - Blood by Automated count CBC Lab Routine Acute cystitis without hematuria Expected: 12/29/2021, Expires: 12/22/2022 [employer] Work Phone: Comment on above: Expected: 12/29/2021, Expires: 3 Start: 12-29-2021 End: 12-22-2022 Comprehensive metabolic 2000 panel - Serum or Plasma Comprehensive Metabolic Panel Lab Routine Altered mental status, unspecified altered mental status type Expected: 12/29/2021, Expires: 12/22/2022 [employer] Work Phone: Comment on above: Expected: 12/29/2021, Expires: 3 Start: 11-26-2021 ANNUAL PCP TEAM CHRONIC DISEASE VISIT ANNUAL PCP TEAM CHRONIC DISEASE VISIT [facility] Start: 09-03-2021 End: 09-03-2022 CBC W Auto Differential panel - Blood CBC + DIFF Lab Routine Hyperlipidemia, mixed Expected: 09/03/2021, Expires: 09/03/2022 [facility] Work Phone: Comment on above: Expected: 09/03/2021, Expires: 3 Start: 09-03-2021 End: 09-03-2022 Comprehensive metabolic 2000 panel - Serum or Plasma COMP METABOLIC PANEL Lab Routine Hyperlipidemia, mixed Expected: 09/03/2021, Expires: 09/03/2022 [facility] Work Phone: Comment on above: Expected: 09/03/2021, Expires: 3 Start: 09-03-2021 End: 09-03-2022 Hemoglobin A1c/Hemoglobin.total in Blood HGB A1C Lab Routine Type 2 diabetes mellitus without complication, without long-term current use of insulin (HCC) Expected: 09/03/2021, Expires: 09/03/2022 [facility] Work Phone: Comment on above: Expected: 09/03/2021, Expires: 3 Start: 09-03-2021 End: 09-03-2022 LIPID PANEL BASIC LIPID PANEL BASIC Lab Routine Hyperlipidemia, mixed Expected: 09/03/2021, Expires: 09/03/2022 [facility] Work Phone: Comment on above: Expected: 09/03/2021, Expires: 3 Start: 09-03-2021 End: 09-03-2022 Thyrotropin [Units/volume] in Serum or Plasma TSH BLD Lab Routine Hypothyroidism, acquired Expected: 09/03/2021, Expires: 09/03/2022 [facility] Work Phone: Comment on above: Expected: 09/03/2021, Expires: 3 Start: 08-29-2021 Hepatitis B surface antibody level LDL CHOLESTEROL [facility] Start: 08-28-2021 Adult depression screening assessment DEPRESSION SCREENING [facility] Start: 08-28-2021 ANNUAL PCP TEAM CHRONIC DISEASE VISIT ANNUAL PCP TEAM CHRONIC DISEASE VISIT [facility] Start: 08-08-2021 ADVANCE DIRECTIVE DISCUSSION ADVANCE DIRECTIVE DISCUSSION [facility] Start: 08-08-2021 DEPRESSION ASSESSMENT DEPRESSION ASSESSMENT [facility] Start: 06-10-2021 COVID-19 Vaccine (2 - Booster for Moderna series) COVID-19 Vaccine (2 - Booster for Moderna series) [facility] Start: 06-10-2021 COVID-19 VACCINE (2 - Moderna series) COVID-19 VACCINE (2 - Moderna series) [facility] Start: 05-28-2021 Hemoglobin A1c/Hemoglobin.total in Blood HBA1C [facility] Start: 05-13-2021 COVID-19 VACCINE (2 - Moderna 3-dose series) COVID-19 VACCINE (2 - Moderna 3-dose series) [facility] Start: 05-13-2021 COVID-19 VACCINE (2 - Moderna series) COVID-19 VACCINE (2 - Moderna series) [facility] Start: 04-08-2021 Influenza vaccination [facility] Start: 2020 RSV Immunization for Adults (1 - 1-dose 75+ series) RSV Immunization for Adults (1 - 1-dose 75+ series) [facility] Start: 2020 RSV Vaccine (1 - 1-dose 75+ series) RSV Vaccine (1 - 1-dose 75+ series) [facility] Start: 2020 [facility] Start: 04-08-2020 Influenza vaccination Flu vaccine (#1) [employer] [place] Start: 04-08-2019 Influenza vaccination Flu vaccine (#1) [employer] Work Phone: Start: 03-15-2019 Breast cancer screen Breast cancer screen [employer] Work Phone: Start: 01-28-2019 Annual Wellness Visit (AWV) Annual Wellness Visit (AWV) [employer] Work Phone: Start: 12-30-2018 [facility] [place] Start: 12-30-2018 Creatinine monitoring Creatinine monitoring [employer] Work Phone: Start: 12-30-2018 Potassium monitoring Potassium monitoring [employer] Work Phone: Start: 02-25-2018 Pneumococcal 65+ years Vaccine (2 - PPSV23 or PCV20) Pneumococcal 65+ years Vaccine (2 - PPSV23 or PCV20) [facility] Start: 02-25-2018 Pneumococcal 65+ years Vaccine (2 of 2 - PPSV23) Pneumococcal 65+ years Vaccine (2 of 2 - PPSV23) [facility] Work Phone: Start: 02-25-2018 Pneumococcal Vaccine: 65+ Years (2 - PPSV23 if available, else PCV20) Pneumococcal Vaccine: 65+ Years (2 - PPSV23 if available, else PCV20) [facility] Start: 02-25-2018 PNEUMOCOCCAL: 65+ (2 - PPSV23 if available, else PCV20) PNEUMOCOCCAL: 65+ (2 - PPSV23 if available, else PCV20) [facility] Start: 02-25-2018 PNEUMOCOCCAL: 65+ (2 - PPSV23 or PCV20) PNEUMOCOCCAL: 65+ (2 - PPSV23 or PCV20) [facility] Start: 09-09-2017 Screening for osteoporosis [facility] Start: 04-22-2017 Pneumococcal Vaccine: 50+ (2 of 2 - PPSV23) Pneumococcal Vaccine: 50+ (2 of 2 - PPSV23) [facility] Start: 04-22-2017 Pneumococcal Vaccine: 50+ Years (2 of 2 - PPSV23) Pneumococcal Vaccine: 50+ Years (2 of 2 - PPSV23) [facility] Start: 04-22-2017 Pneumococcal Vaccine: 65+ (2 - PPSV23 or PCV20) Pneumococcal Vaccine: 65+ (2 - PPSV23 or PCV20) [facility] Start: 04-22-2017 Pneumococcal Vaccine: 65+ (2 of 2 - PPSV23 or PCV20) Pneumococcal Vaccine: 65+ (2 of 2 - PPSV23 or PCV20) [facility] Start: 04-22-2017 Pneumococcal Vaccine: 65+ Years (2 - PPSV23 if available, else PCV20) Pneumococcal Vaccine: 65+ Years (2 - PPSV23 if available, else PCV20) [facility] Start: 04-22-2017 Pneumococcal Vaccine: 65+ Years (2 - PPSV23 or PCV20) Pneumococcal Vaccine: 65+ Years (2 - PPSV23 or PCV20) [facility] Start: 04-22-2017 Pneumococcal Vaccine: 65+ Years (2 of 2 - PPSV23 or PCV20) Pneumococcal Vaccine: 65+ Years (2 of 2 - PPSV23 or PCV20) [facility] Start: 04-22-2017 PNEUMOCOCCAL: 65+ (2 - PPSV23 if available, else PCV20) PNEUMOCOCCAL: 65+ (2 - PPSV23 if available, else PCV20) [facility] Start: 04-22-2017 PNEUMOCOCCAL: 65+ (2 - PPSV23 or PCV20) PNEUMOCOCCAL: 65+ (2 - PPSV23 or PCV20) [facility] Start: 04-22-2017 [facility] Start: 2010 ADVANCE DIRECTIVE DISCUSSION ADVANCE DIRECTIVE DISCUSSION [facility] Start: 2010 BONE DENSITY BONE DENSITY [facility] Start: 2010 Bone Density Screening Bone Density Screening [facility] Start: 2010 PNEUMOVAX AGE 65 AND OVER WITH 5YR LOOKBACK (#1) PNEUMOVAX AGE 65 AND OVER WITH 5YR LOOKBACK (#1) [facility] Start: 2010 Screening for osteoporosis Bone Density Screening [facility] Start: 2005 Hepatitis B Vaccine (1 of 3 - Risk 3-dose series) Hepatitis B Vaccine (1 of 3 - Risk 3-dose series) [facility] Start: 2005 Hepatitis B Vaccines (1 of 3 - Risk 3-dose series) Hepatitis B Vaccines (1 of 3 - Risk 3-dose series) [facility] Start: 2005 RSV Immunization aged 60 or older (1 - 1-dose 60+ series) RSV Immunization aged 60 or older (1 - 1-dose 60+ series) [facility] Start: 2005 RSV Vaccine (1 - 1-dose 60+ series) RSV Vaccine (1 - 1-dose 60+ series) [facility] Start: 2005 [facility] Start: 1995 Colon cancer screen colonoscopy Colon cancer screen colonoscopy [facility] Work Phone: Start: 1995 Screening for malignant neoplasm of colon [facility] Start: 1995 Shingles Vaccine (1 of 2) Shingles Vaccine (1 of 2) [facility] Start: 1995 SHINGRIX VACCINE (1 of 2) SHINGRIX VACCINE (1 of 2) [facility] Start: 1995 Zoster Vaccines (1 of 2) Zoster Vaccines (1 of 2) [facility] Start: 1995 [facility] Start: 1990 COLOGUARD (FIT-DNA) COLOGUARD (FIT-DNA) [facility] Start: 1990 Colonoscopy COLONOSCOPY [facility] Start: 1990 COLORECTAL CANCER SCREENING COLORECTAL CANCER SCREENING [facility] Start: [address] COLONOGRAPHY [facility] Start: 1990 FECAL OCCULT BLOOD FECAL OCCULT BLOOD [facility] Start: 1990 SIGMOIDOSCOPY SIGMOIDOSCOPY [facility] Start: 1964 DTaP/Tdap/Td vaccine (1 - Tdap) DTaP/Tdap/Td vaccine (1 - Tdap) [facility] Start: 1964 DTaP/Tdap/Td Vaccines (1 - Tdap) DTaP/Tdap/Td Vaccines (1 - Tdap) [facility] Start: 1964 Hepatitis A Vaccines (1 of 2 - Risk 2-dose series) Hepatitis A Vaccines (1 of 2 - Risk 2-dose series) [facility] Start: 1964 Urine microalbumin profile [facility] Start: 1964 Urine screening for protein Diabetes: Urine Protein Screening [facility] Start: 1964 [facility] Start: 1963 ANNUAL PCP TEAM CHRONIC DISEASE VISIT ANNUAL PCP TEAM CHRONIC DISEASE VISIT [facility] Start: 1963 Anxiety Screening Anxiety Screening [facility] Start: 1963 BP CONTROLLED (<130/80) BP CONTROLLED (<130/80) [facility] Start: 1963 HEPATITIS C SCREENING HEPATITIS C SCREENING [facility] Start: 1963 Hepatitis C screening [facility] Start: 1957 COVID-19 VACCINE (1) COVID-19 VACCINE (1) [facility] Start: 1957 Depression Monitoring Depression Monitoring [facility] Start: 1957 Depression Screen Depression Screen [facility] Start: 1957 Depression Screening Depression Screening [facility] Start: 1957 [facility] Start: 1956 DTaP/Tdap/Td vaccine (1 - Tdap) DTaP/Tdap/Td vaccine (1 - Tdap) [facility] Work Phone: Start: 1955 [object Object] DIABETIC FOOT EXAM [facility] Start: 1955 Diabetic foot examination [facility] Start: 1955 Glaucoma screening Dilated Retinal Exam [facility] Start: 1955 Hepatitis B screening URINE ALBUMIN:CREATININE RATIO [facility] Start: 1955 Hepatitis C antibody, confirmatory test DILATED RETINAL EXAM [facility] Start: 1955 Preventive dental service Diabetes: Dental Exam [facility] Start: 1951 PNEUMOCOCCAL: 65+ (1 - PCV) PNEUMOCOCCAL: 65+ (1 - PCV) [facility] Start: 1950 COVID-19 Vaccine (1) COVID-19 Vaccine (1) [facility] Start: 1950 HbA1c (Bld) [Mass fraction] HBA1C [facility] Start: 1946 Hepatitis A Vaccines (1 of 2 - Risk 2-dose series) Hepatitis A Vaccines (1 of 2 - Risk 2-dose series) [facility] Start: 1945 Annual Wellness Visit (AWV) Annual Wellness Visit (AWV) [facility] Start: 1945 Echocardiography Echocardiogram [facility] Start: 1945 Hemoglobin A1c measurement Diabetes: Hemoglobin A1C [facility] Start: 1945 Hepatitis B Vaccines (1 of 3 - 3-dose series) Hepatitis B Vaccines (1 of 3 - 3-dose series) [facility] Start: 1945 Hepatitis C screen Hepatitis C screen [facility] Work Phone: Start: 1945 Hepatitis C screening Hepatitis C screen [place], [place] Start: 1945 Lipid panel Lipid Panel [facility] Start: 1945 Medicare Advantage Annual Wellness Visit (AWV) Medicare Advantage Annual Wellness Visit (AWV) [facility] Start: 1945 Screening for osteoporosis Bone Density Scan [facility] Bacteria identified in Blood by Culture [facility] Bacteria identified in Urine by Culture Urine culture Microbiology STAT 11/17/2022 9:35 PM EDT [facility] [email or web address] Work Phone: Comprehensive Metabo lic Panel w/ Reflex to MG Comprehensive Metabolic Panel w/ Reflex to MG Lab Routine Daily until discontinued starting 12/14/2021, 8 completed [facility] Work Phone: Comment on above: Daily until discontinued starting 2021, 8 completed Glucose [Mass/volume ] in Serum or Plasma [facility] Work Phone: Comment on above: As Needed until discontinued starting 4X Daily (AC & HS) u ntil discontinued starting 12/13/2021 End: 06-26-2024 Hemoglobin [Mass/volume] in Blood [facility] Work Phone: Hemoglobin A1c/Hemoglobin.total in Blood HEMOGLOBIN A1C (POC) Lab Routine Type 2 diabetes mellitus with stage 3 chronic kidney disease, without long-term current use of insulin, unspecified whether stage 3a or 3b CKD (HCC) Ordered: 06/27/2023 [facility] Work Phone: Comment on above: Ordered: 06/27/2023 Hemoglobin A1c/Hemoglobin.total in Blood HEMOGLOBIN A1C (POC) Lab Routine Type 2 diabetes mellitus with stage 3 chronic kidney disease, without long-term current use of insulin, unspecified whether stage 3a or 3b CKD ([facility]) Ordered: 01/06/2024 [facility] Work Phone: Comment on above: Ordered: 01/06/2024 Oxygen therapy [[facility] Data Set] Initiate Oxygen Therapy Protocol Respiratory Care Routine As Needed until discontinued starting 12/13/2021 [facility] Work Phone: Comment on above: As Needed until discontinued starting UA DIP, URINE (POC) UA DIP, URIN E (POC) Lab Routine Urinary frequency Ordered: 03/07/2023 [facility] Work Phone: Comment on above: Ordered: 03/07/2023 UA DIP, URINE (POC) UA DIP, URIN E (POC) Lab Routine Recurrent UTI (urinary tract infection) Ordered: 06/27/2023 [facility] Work Phone: Comment on above: Ordered: 06/27/2023 UA DIP, URINE (POC) UA DIP, URIN E (POC) Lab Routine Dysuria Ordered: 12/07/2023 [facility] Work Phone: Comment on above: Ordered: 12/07/2023 End: 09-03-2022 Urinalysis complete panel - Urine URINALYSIS, WITH MICROSCOPIC Lab Routine Hyperlipidemia, mixed 1 Occurrences starting 09/03/2021 until 09/03/2022 [facility] Work Phone: Comment on above: 1 Occurrences starting 09/03/2021 until 09/03/2022 End: 04-05-2024 US DVT LOWER RIGHT US DVT LOWER RIGHT Radiology STAT Right leg swelling 1 Occurrences starting 03/07/2023 until 04/05/2024 [facility] Work Phone: Comment on above: 1 Occurrences starting 03/07/2023 until 04/05/2024 End: 02-04-2025 US Kidney - bilateral and Urinary bladder US KIDNEY/BLADDER Radiology Routine CKD (chronic kidney disease) stage 4, GFR 15-29 ml/min ([facility]) 1 Occurrences starting 01/06/2024 until 02/04/2025 [facility] Comment on above: 1 Occurrences starting 01/06/2024 until 02/04/2025 End: 06-02-2023 KIDNEY/BLADDER US KIDNEY/BLADDER Radiology Routine BARRY (acute kidney injury) ([facility]) 1 Occurrences starting 05/03/2022 until 06/02/2023 [facility] Work Phone: Comment on above: 1 Occurrences starting 05/03/2022 until 06/02/2023 End: 01-26-2024 [facility] Work Phone: Comment on above: Once for 1 Occurrences starting 01/26/20 until 01/26/2024 End: 04-25-2024 [facility] Work Phone: Comment on above: Once for 1 Occurrences starting 04/25/20 until 04/25/2024 End: 12-22-2021 Vancomycin Level, Trough Vancomycin Level, Trough Lab Timed One Time for 1 Occurrences starting 12/22/2021 until 12/22/2021 [facility] Work Phone: Comment on above: One Time for 1 Occurrences starting 12/06 until 12/22/2021 [facility] Immunizations Immunization Date Immunization Notes Care Provider [facility] 06-26-2024 influenza vaccine A& B surf ant adjuvanted (Fluad) HIGH-DOSE injection 0.5 mL Kaiden David MD Work Phone: [facility] 04-15-2021 COVID-19 original vaccine, full dose, monovalent (MODERNA) Komal Lalit DO Work Phone: [facility] 04-07-2020 influenza nasal, unspecified formulation Caputa Lalit DO Work Phone: [facility] 04-07-2020 unknown vaccine or immune globulin Caputa Lalit DO Work Phone: [facility] 04-07-2020 influenza virus vaccine, unspecified formulation Ajit Nesheim DO Work Phone: [facility] 06-27-2019 influenza virus vaccine, unspecified formulation Caputa Lalit DO Work Phone: [facility] 06-25-2019 influenza, injectabl e, quadrivalent, contains preservative Caputa Lalit DO Work Phone: [facility] 05-12-2018 influenza, high dose seasonal, preservative-free Caputa Lalit DO Work Phone: [facility] 05-27-2017 influenza, high dose seasonal, preservative-free Komal Lalit DO Work Phone: [facility] 03-28-2017 influenza, high dose seasonal, preservative-free Komal Lalit DO Work Phone: [facility] 02-25-2017 pneumococcal conjuga te vaccine, 13 valent Caputa Lalit DO Work Phone: [facility] Work Phone: 04-08-2016 influenza, high dose seasonal, preservative-free Caputa Lalit DO Work Phone: [facility] 04-08-2016 pneumococcal conjuga te vaccine, 13 valent Komal Lalit DO Work Phone: [facility] Payers Date Payer Category Payer Unknown [id number] 2024 Medicare [id number] 2024 Self-pay 2023 Medicare HMO [id number] 2022 Medicaid [id number] 2022 Commercial Managed C are - HMO [id number] 2022 Medicare [id number] 2022 Unknown [id number] 2020 Unknown [employer] M [employer] [address] [id number] 2020-Present [address] [place] [address] [id number] .[id number] 2019 Unknown [id number] .[id number] 2019 Unknown [id number]. 1.13.159.2 .7.3.118051.315 2017 Medicare MEDICARE MEDICAR E PART A AND B [id number] 2017-Present [phone] [place] [address] [id number] .[id number] 2017 Medicare MEDICARE MEDICAR E PART A AND B xxxxxxxxxx 2017-Present [phone] [place] [address] xxxxxxxxxx [id number] .[id number] 2017 Medicare [id number] 1.2.840.439333.1.13.239.2 .7.3.840189.315 2010 Medicare [id number] 1.2.840.658539.1.13.159.2 .7.3.794818.315 2010 Medicare [id number]. 1.13.159.2 .7.3.914205.315 Unknown [id number] 2.16.840.1.331469.3.579.2 .462 Unknown [id number] 2.16.840.1.796419.3.579.2 .462 Unknown [id number] 2.16.840.1.813175.3.579.2 .462 Unknown [id number] 2.16.840.1.002851.3.579.2 .462 Unknown [id number] 2.16.840.1.061641.3.579.2 .462 Unknown [id number] 2.16.840.1.368070.3.579.2 .462 Unknown [id number] 2.16.840.1.453069.3.579.2 .462 Unknown [id number] 2.16.840.1.420536.3.579.2 .462 Unknown [id number] 2.840.1.663935.3.579.2 .462 Unknown [id number] 2.840.1.646563.3.579.2 .462 Unknown [id number] 2.840.1.664722.3.579.2 .462 Unknown [id number] 2.840.1.318436.3.579.2 .462 Unknown [id number] 2.840.1.304762.3.579.2 .462 Unknown [id number] 2.840.1.154784.3.579.2 .462 Unknown [id number] 2.16840.1.411243.3.579.2 .462 Unknown [id number] 2.16.840.1.073788.3.579.2 .462 Unknown [id number] 2.16.840.1.496924.3.579.2 .462 Unknown [id number] 2.16.840.1.866081.3.579.2 .462 Unknown [id number] 2.16.840.1.745789.3.579.2 .462 Unknown [id number] 2.16.840.1.291722.3.579.2 .462 Unknown [id number] 2.16840.1.678183.3.579.2 .462 Unknown [id number] 2.16.840.1.799972.3.579.2 .462 Unknown [id number] 2.16.840.1.396962.3.579.2 .462 Social History Date Type Detail Facility Start: 08-28-2020 End: 11-22-2022 Tobacco smoking status NHIS Former smoker [facility] Start: 08-28-2020 End: 11-22-2022 Tobacco use and exposure Never used [facility] Start: 08-28-2020 End: 06-25-2024 Alcohol intake Current [facility]-dr[facility] (finding[facility] Start: 1945 Sex Assigned At Not on file [facility] [employer] Work Phone: Start: 08-17-2021 End: 03-30-2023 Exposure to SARS-CoV-2 (event) Not sure [facility] Start: 12-26-2017 End: 08-25-2019 Tobacco smoking status NJIS Never smoker [employer] Phone: Start: 12-13-2021 History SDOH Alcohol Frequency 1 [employer] Phone: History of tobacco use Current smoker [facility] Start: 12-13-2022 End: 06-25-2024 History of Social function [facility] Start: 12-13-2022 End: 06-25-2024 Tobacco use panel [facility] Adult Depression Screening Assessment 0 [facility] Within the last year , have you been afraid of your partner or ex-partner? No [facility] Are you now , , , , never or living with a partner? [facility] How often to you hav e a drink containing alcohol? Never [facility] How hard is it for y ou to pay for the very basics like food, housing, medical care, and heating Somewhat hard [facility] Do you feel stress - tense, restless, nervous, or anxious, or unable to sleep at night because your mind is troubled all the time - these days [OSQ] To some extent [facility] (I/We) worried wheth er (my/our) food would run out before (I/we) got money to buy more. Sometimes true [employer] Start: 1945 Sex assigned at Female [facility] Start: 01-28-2024 Gender identity Identifies as female gender (finding) [facility] Start: 01-28-2024 Sexual orientation Heterosexual (martha gregory) [facility] (I/We) worried wheth er (my/our) food would run out before (I/we) got money to buy more. Never true [facility] [employer] Start: 03-08-2022 End: 11-27-2024 Sex Female (finding) [facility] [employer] In the past 12 month s, how many times have you moved where you were living? In the past 12 months, how many times have you moved where you were living? 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 Patient resides at [facility]. PC to [facility] [phone]. I spoke with her nurse Joyce. They are able to draw labs at facility. Will have orders faxed to [phone]. She verbalized understanding. [facility] 03-27-2025 Miscellaneous Notes I spoke with racing secretary and handicapper. Patient resides at [facility]. PC to [facility] [phone]. I spoke with her nurse Joyce. They are able to draw labs at facility. Will have orders faxed to [phone]. She verbalized understanding. Patient cancelled OV today with comment that she is sick. PC to patient. Unable to LMOM as VM not accepting messages. RBC aware patient has OV tomorrow. PC to patient. Unable to LMOM as VM is full. Remote received for Monitored VT event. documented in this encounter [facility] 03-27-2025 Telephone encounter Note Patient cancelled OV today with comment that she is sick. PC to patient. Unable to LMOM as VM not accepting messages. [facility] 03-26-2025 Telephone encounter Note RBC aware patient has OV tomorrow. [facility] 03-26-2025 Telephone encounter Note PC to patient. Unable to LMOM as VM is full. [facility] 03-25-2025 Telephone encounter Note Remote received for Monitored VT event. [facility] 01-11-2025 History of Present illness Narrative [facility] Cardiology [facility] [address] [address] Dept: [phone] Dept Loc: [phone] Visit type: Established : 1945 Chief Complaint: [...] 05/31/2024 Performed by Pravin Poole MD at [facility] Cardiac Cath/EP Lab CHOLECYSTECTOMY CORONARY ARTERY [...] Disp: , Rfl: documented in this encounter [facility] 10-02-2024 Telephone encounter Note PC to [facility], I spoke with Diego MARRERO Reviewed verbal order. Will send to [facility] pharmacy as well. She verbalized understanding. [facility] 10-02-2024 Miscellaneous Notes PC to [facility], I spoke with Diego MARRERO Reviewed verbal order. Will send to pts pharmacy as well. She verbalized understanding. CalledDiego RN was alittle concerned BP past week, she has not been on RX since PM inserted 09/23 -168/70 2/ -144/68 2/-158/64 2-143/ 2--136/ 2148-72 2--146/ HR 70-80 no HF SX , wt stable,no complaints, will inform Dianelys Rajwinder MARRERO from [facility] requesting return call to clarify medications and BP [phone]. May ask for nurse documented in this encounter [facility] 10-01-2024 Telephone encounter Note Diego Paulson RN was alittle concerned BP past week, she has not been on RX since PM inserted 09/23 -168/70 / -144/68 2-158/64 2-143/66 2-20-136/68 09/29-148-72 2-23-146/70 HR 70-80 no HF SX , wt stable,no complaints, will inform Dianelys [facility] [employer] 10-01-2024 Telephone encounter Note Rajwinder MARRERO from [facility] requesting return call to clarify medications and BP [phone]. May ask for nurse [facility] [employer] 08-03-2024 Note HNO ID: [id number] Author: GOGO BARBOSA RN Service: ? Author Type: Registered Nurse Type: Progress Notes Filed: 08/03/2024 15:49 Note Text: Spoke with Glenda at [facility], patient is now a permanent resident under the care of facility physician, Dr. Adin Elias CNP . Dr. Adin Elias CNP will manage all patient care hereafter (including refilling prescriptions). CCA chart updated to reflect PCP change. Gogo Barbosa RN [facility] 08-03-2024 History of Present illness Narrative Spoke with Glenda at [facility], patient is now a permanent resident under the care of facility physician, Dr. Adin Elias, JATIN . Dr. Adin Elias CNP will manage all patient care hereafter (including refilling prescriptions). CCAG chart updated to reflect PCP change. Gogo Barbosa RN documented in this encounter [facility] 08-03-2024 Note Patient Outreach (AG ACM) MIKEL WINSTON ([id number]) 1945 F Date Time Provider Department 08/03/24 GOGO BARBOSA [facility] During your visit today, we recorded the following information about you: Gogo Barbosa RN 08/03/2024 3:49 PM Signed Spoke with Glenda at [facility], patient is now a permanent resident under the care of facility physician, Dr. Adin Elias CNP . Dr. Adin Elias, JATIN will manage all patient care hereafter (including refilling prescriptions). CCAG chart updated to reflect PCP change. 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 Author Type: Registered Nurse Type: Progress Notes Filed: 2024 09:36 Note Text: TRANSITION CARE MANAGEMENT (TCM) DISCHARGE TO POST ACUTE FACILITY POST ACUTE TRANSFER SUMMARY: -Pt discharged [facility]. -Post Acute Facility Admitted to [facility] -Admitted for: Altered mental status Office PCC will follow at discharge. Gogo Barbosa RN 2024 [facility] 2024 History of Present illness Narrative TRANSITION CARE MANAGEMENT (TCM) DISCHARGE TO POST ACUTE FACILITY POST ACUTE TRANSFER SUMMARY: -Pt discharged from [facility] on 07/04/2024. -Post Acute Facility Admitted to [facility] -Admitted for: Altered mental status Office PCC will follow at discharge. Gogo Barbosa RN 2024 documented in this encounter [facility] 2024 Note Patient Outreach (AG ACM) MIKEL WINSTON ([id number]) 1945 F Date Time Provider Department 07/13/24 GOGO BARBOSA [facility] During your visit today, we recorded the following information about you: Gogo Barbosa RN 2024 9:36 AM Signed TRANSITION CARE MANAGEMENT (TCM) DISCHARGE TO POST ACUTE FACILITY POST ACUTE TRANSFER SUMMARY: -Pt discharged from [facility] on 07/04/2024. -Post Acute Facility Admitted to [facility] -Admitted for: Altered mental status Office PCC will follow at discharge. Gogo Barbosa RN 2024 Allergies As of Date: 2024 Noted Allergy Reaction CODEINE 02/24/2016 4 - Hives 2 - Rash CODEINE SULFATE 06/13/2018 16 - Unknown Date Reviewed: 06/11/2024 Reviewed by: Stephanie Estrella MA Student - Fully Assessed Reason for Visit: Transition Of Care [4074] Cmt: [facility] Discharge to SNF Prescriptions as of [...] Encounter Status:Closed by GOGO BARBOSA on 07/13/24 [facility] 07-04-2024 History of Present illness Narrative Images from the original note were not included. Speech-Language Pathology SPEECH LANGUAGE PATHOLOGY [facility] Dysphagia Treatment Note Patient Name: Mikel Winston Evaluation Date: 07/04/2024 Date of : 1945 Admission Date: 06/25/2024 5:04 PM Age: 78 y.o. Room/Bed: [facility]/-249 A Subjective Patient alert and cooperative. Seen [...] Start: 06/29/24 Expected End: 07/13/24 Therapy Time PARKING METER ATTENDANT Individual Minutes Time In: 08 Time Out: 818 Minutes: 17 GUILLERMO Keyes Images from the original note were not included. PHYSICAL THERAPY [facility] Treatment Note Name/MRN: Mikel Winston ([id number]) Date of : 1945 Age: 78 y.o. Room[facility]Bed: [facility] A Visit #: 1 out of 5 [...] not included. Speech-Language Pathology SPEECH LANGUAGE PATHOLOGY [facility] Dysphagia Treatment Note Patient Name: Mikel Winston Evaluation Date: 07/03/2024 Date of : 1945 Admission Date: 06/25/2024 5:04 PM Age: 78 y.o. Room/Bed: [facility] A Subjective Patient alert and cooperative. Seen [...] Start: 06/29/24 Expected End: 07/13/24 Therapy Time PARKING METER ATTENDANT Individual Minutes Time In: 0852 Time Out: 0910 Minutes: 18 GUILLERMO Keyes Images from the original note were not included. OCCUPATIONAL THERAPY [facility] Treatment Note Name/MRN: Mikel Winston ([id number]) Date of : 1945 Age: 78 y.o. Room/Bed: [facility] A Visit #: 1 out of 7 [...] legs off EOB but required min A PLUMBER PIPE FITTING to elevate trunk. Additional time required to [...] original note were not included. OCCUPATIONAL THERAPY [facility] Initial Evaluation Name/MRN: Mikel Winston ([id number]) Evaluation Date: 07/02/2024 Date of : 1945 [...] address the below. Recommend planned discharge for [facility] OT with assist PRN. Admitting Diagnosis: AMS, [...] 05/31/2024 Performed by Pravin Poole MD at [facility] Cardiac Cath/EP Lab CHOLECYSTECTOMY CORONARY ARTERY BYPASS GRAFT TOTAL KNEE ARTHROPLASTY Right TUBAL LIGATION Admission Diagnosis: Patient Active Problem List Diagnosis Date Noted Angina at rest ([facility]) 12/26/2017 Acute cystitis with hematuria 06/25/2024 Cellulitis of right lower extremity 01/28/2024 BARRY (acute kidney injury) ([facility]) 11/18/2022 UTI (urinary tract infection) 11/18/2022 Coronary artery disease involving coronary bypass graft of [place] heart without angina pectoris 09/30/2022 Nonrheumatic aortic [...] Responsibilities: Independent Receives Help From: None Active Hydrate Thickener Operator: No Prior Level of Function Prior Level [...] elbow flexion / extension grossly 3+/5, functional ophthalmic surgical assistant noted to be 4-/5, shoulder flexion [...] of Care supervision is transferred to a [facility] Occupational Therapist. Goals and/or treatment plan was established in collaboration with patient/family/other representatives. Images from the original note were not included. PHYSICAL THERAPY [facility] Initial Evaluation Name/MRN: Mikel Winston ([id number]) Evaluation Date: 07/02/2024 Date of : 1945 [...] CT head (-). Pt recently admitted to [facility] for pacemaker placement 05/31/2024. Pt was [...] 05/31/2024 Performed by Pravin Poole MD at [facility] Cardiac Cath/EP Lab CHOLECYSTECTOMY CORONARY ARTERY BYPASS GRAFT TOTAL KNEE ARTHROPLASTY Right TUBAL LIGATION Admission Diagnosis: Patient Active Problem List Diagnosis Date Noted Angina at rest ([facility]) 12/26/2017 Acute cystitis with hematuria 06/25/2024 Cellulitis of right lower extremity 01/28/2024 BARRY (acute kidney injury) ([facility]) 11/18/2022 UTI (urinary tract infection) 11/18/2022 Coronary artery disease involving coronary bypass graft of [place] heart without angina pectoris 09/30/2022 Nonrheumatic aortic [...] Responsibilities: Independent Receives Help From: None Active Hydrate Thickener Operator: No Prior Level of Function Prior Level [...] of Care supervision is transferred to a [facility] Physical Therapist. Goals and/or [...] 3.7 3.9 CL 117* 113* 110* CO2 23 25 25 BUN 48* 37* 29* CREATININE 1.15* 1.18* 1.11* GLUCOSE 131* 143* 113* CALCIUM 8.4 8.1* 8.0* ANIONGAP 3 2* 0* LIVER PROFILE: Recent Labs 06/30/24 0516 07/01/2432607/02/24 0455 AST 43 51* 50* ALT 24 [...] day 8. Plan is to go to [facility] - Discontinue palmer - Discussed with nursing [...] JannArnel Mobile Relation: Child Secondary Emergency Contact: RavindraCosta Mobile Relation: Child Joni Gutierrez MD Division of Hospitalist Medicine [email or web address] [facility] Spiritual Care Note [facility] Palliative Care Patient Name:Mikel Winston Chief [...] to patient and people surrounding her. Her software build engineer was visiting with them. Follow up PRN. Is there spiritual distress? Unknown Comment: Interventions: Establish rapport . Care Plan: Care plan PRN . Follow Up: PRN. Debriefed: with computer systems architect team. Mellissa Vega 07/02/24 Images from the original note were not included. Speech-Language Pathology SPEECH LANGUAGE PATHOLOGY [facility] Dysphagia Treatment Note Patient Name: Mikel Winston Evaluation Date: 07/02/2024 Date of : 1945 Admission Date: 06/25/2024 5:04 PM Age: 78 y.o. Room/Bed: [facility] A Subjective Patient alert and cooperative. Seen [...] Start: 06/29/24 Expected End: 07/13/24 Therapy Time PARKING METER ATTENDANT Individual Minutes Time In: 0852 Time Out: 0910 Minutes: 18 GUILLERMO Keyes [...] Recent Labs 06/29/24 0402 06/30/24 0516 07/01/24 032 NA 145 142 140 K 3.7 3.5 3.7 CL 120* 117* 113* CO2 21* 23 25 BUN 51* 48* 37* CREATININE 1.25* 1.15* 1.18* GLUCOSE 190* 131* 143* CALCIUM 9.0 8.4 8.1* ANIONGAP 4 3 2* LIVER PROFILE: Recent Labs 06/29/24 0402 06/30/24 0516 07/01/24 032 AST 53* 43 51* ALT 26 24 [...] Joni Gutierrez MD Division of Hospitalist Medicine [facility] Images from the original note were not included. Speech-Language Pathology SPEECH LANGUAGE PATHOLOGY [facility] Dysphagia Treatment Note Patient Name: Mikel Winston Evaluation Date: 06/30/2024 Date of : 1945 Admission Date: 06/25/2024 5:04 PM Age: 78 y.o. Room/Bed: [facility] A Subjective Patient alert and cooperative. Seen [...] the bedside to assist pt with feeding. PARKING METER ATTENDANT reviewed diet and swallow strategies. Moderate - [...] use of established swallow strategies Continue acute PARKING METER ATTENDANT therapy per initial plan of care and [...] Start: 06/29/24 Expected End: 07/13/24 Therapy Time PARKING METER ATTENDANT Individual Minutes Time In: 935 Time Out: 954 Minutes: 19 GUILLERMO Monet [facility] [...] not included. Speech-Language Pathology SPEECH LANGUAGE PATHOLOGY [facility] Bedside Swallow Evaluation Patient Name: Mikel Winston Evaluation Date: 06/29/2024 Date of : 1945 Admission Date: 06/25/2024 5:04 PM Age: 78 y.o. Room/Bed: B2-249/[facility] A IMPRESSION: S/s oropharyngeal dysphagia. Intermittent overt [...] mastication). Pt would benefit from skilled acute PARKING METER ATTENDANT services to address further assessment of prandial [...] be evaluated. Dysphagia History: No history of PARKING METER ATTENDANT services in EMR with retrospective chart review [...] 05/31/2024 Performed by Pravin Poole MD at [facility] Cardiac Cath/EP Lab CHOLECYSTECTOMY CORONARY ARTERY BYPASS GRAFT TOTAL KNEE ARTHROPLASTY Right TUBAL LIGATION Admission Diagnosis: Patient Active Problem List Diagnosis Date Noted Angina at rest (HCC) 12/26/2017 Acute cystitis with hematuria 06/25/2024 Cellulitis of right lower extremity 01/28/2024 BARRY (acute kidney injury) (HCC) 11/18/2022 UTI (urinary tract infection) 11/18/2022 Coronary artery disease involving coronary bypass graft of [place] heart without angina pectoris 09/30/2022 Nonrheumatic aortic [...] Start: 06/29/24 Expected End: 07/13/24 Therapy Time PARKING METER ATTENDANT Individual Minutes Time In: 1430 Time Out: 1445 Minutes: 15 GUILLERMO Keyes Nutrition Assessment Type and Reason for Visit: Reassess Nutrition Recommendations/Plan: NG remains in place, with enteral nutrition at goal, patient tolerating without GI distress. Glucerna 1.5 @ 40 mL/hr will provide: 1440 kcal, 79 g protein, 728 mL free fluid --> 26 kcal and 1.4 g protein/kg IBW(55 kg) Pending PARKING METER ATTENDANT evaluation, ADAT per their recommendations As able, please obtain weekly standing scale weights for most accurate anthropometric data and calculation of macronutrient and fluid needs RDN to continue to monitor weekly: fluid accumulation, weight, skin integrity, trends in lab values, tolerance of PO, clinical status, discharge planning. Malnutrition Assessment: Malnutrition Status: At risk for malnutrition (Comment) (EN to goal 06/28, pending PARKING METER ATTENDANT eval today (06/29)) Context: Acute Illness Findings of the 6 clinical characteristics of malnutrition: Energy Intake: Mild decrease in energy intake (Comment) (EN at goal since 06/28) Weight Loss: No significant weight loss Body Fat Loss: Mild body fat loss Orbital, Buccal region Muscle Mass Loss: Mild muscle mass loss Temples (temporalis) Fluid Accumulation: Moderate to Severe (+2 BLE) Extremities Denture Packer Strength: Measurable reduction in ophthalmic surgical assistant strength Nutrition Assessment: 78 year old woman who remains admitted to [facility] ICU after being found down by family. Initially admitted to [facility], then transferred to ICU morning of 06/26 [...] NFPE compelted with patient consent. 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 Pending PARKING METER ATTENDANT eval Estimated Daily Nutrient Needs: Energy Requirements Based On: Kcal/kg Weight Used for Energy Requirements: [place] Weight for Energy Calculation (kg): 55 kg Total Energy Requirements (kcals/day): 6577-4377 (25-30 kcal/kg IBW) Weight Used for Protein Requirements: [place] Weight in Kg Used for Protein Requirements: [...] 190# 06/11/24) % Weight Change (Calculated): 2 [place] Body Weight (lbs) (Calculated): 120 lbs [place] Body Weight (Kg) (Calculated): 55 kg % [place] Body Weight (Calculated): 166.7 % BMI (kg/m2) [...] to determine Crissy Denis RDN, LDN, Contact: *[phone] Patient is individual with hx of SBP secondary to cirrhosis, coronary artery disease, type 2 diabetes, hypertension, presented to the ED with altered mental status. Requiring Lactulose by NG tube - mentation improved and she will be transferred to the floor. Yumiko Villasenor MD Division of Hospitalist Medicine [facility] Images from the original note [...] patient AxOx2-3 today Dysphagia - cleared by PARKING METER ATTENDANT for adult easy to chew food GI [...] is a 78 y.o. female admitted to [facility] on 06/25 for altered mental status. Patient seen and examined this morning. Patient's mental status improving, was AxOx-2- 3 today. Patient's daughter in law at bedside. Patient seen by PARKING METER ATTENDANT, started on easy to chew diet. NG [...] be obtained due to patient's mental status Westfir Symptom Assessment Score [place]fir Score Pain Score 0 Tiredness Score 6 [...] status: alone Work history: retired, worked in [employer] Family Meeting: (if discussing Advanced Care Planning, [...] SHATTUCK, Pulmonary Critical Care and Sleep Medicine [address] [place] [address] Critical Care Note: Patient - Mikel Winston, Age - 78 y.o. - 1945 Room Number - [id number] A [facility] # - [id number] Date of Admission - 06/25/2024 5:04 PM [...] artery disease involving coronary bypass graft of [place] heart without angina pectoris Nonrheumatic aortic valve [...] completed shifts: In: 2863 [I.V.:567; NG/GT:2296] Out: 2129 [Urine:2130] @PAU@ @[id number]@ Lines, ET tube, Devices Lines -none Medications [...] SHATTUCK, Pulmonary Critical Care and Sleep Medicine [address] [place] [address] Critical Care Note: Patient - Mikel Winston, Age - 78 y.o. - 1945 Room Number - 222-08/[id number] A [facility] # - [id number] Date of Admission - 06/25/2024 5:04 PM [...] artery disease involving coronary bypass graft of [place] heart without angina pectoris Nonrheumatic aortic valve [...] [I.V.:2420.1; Blood:466.5; NG/GT:1519] Out: 1895 [Urine:1895] @IODETAILS@ @[id number]@ Lines, ET tube, Devices Lines -none Medications [...] SHATTUCK, Pulmonary Critical Care and Sleep Medicine [address] [place] [address] Critical Care Note: Patient - Mikel Winston, Age - 78 y.o. - 1945 Room Number - 222-08/[id number] A [facility] # - [id number] Date of Admission - 06/25/2024 5:04 PM Hospital Day - 2 HPI/Subjective 78-year-old female, with past medical history significant for coronary artery disease, type 2 diabetes, hypertension, cirrhosis transferred from 2 E. to ICU for altered mental status upon [...] artery disease involving coronary bypass graft of [place] heart without angina pectoris Nonrheumatic aortic valve stenosis Essential hypertension Dyslipidemia BARRY (acute kidney injury) ([facility]) UTI (urinary tract infection) Cellulitis of right [...] [I.V.:1036.1; Blood:466.5; NG/GT:173] Out: 945 [Urine:945] @IODETAILS@ @[id number]@ Lines, ET tube, Devices Lines -none Medications [...] chloride, 50 mL/hr, Last Rate: 50 mL/hr (06/25/24 184) Diet/Nutrition Diet, tube feeding no tray Nasogastric; [...] 35 minutes so far today, excluding procedures. [facility] Respiratory Care Department Progress Note As [...] assess Fluid Accumulation: Moderate to Severe Extremities Denture Packer Strength: Not Performed Nutrition Assessment: 78 year old woman with PMHx: CAD (s/p CABG 2018), PCI (s/p stenting in 2018 d/t moderate aortic stenosis), DMII(A1C=6.1% 01/28/24), CKD stage III, liver cirrhosis, osteoporosis, HTN. Most recently admitted to [facility] 05/29-06/01/24 with bilateral leg swelling, initially presented to [facility] ED then transferred to [facility] for PPM placement. Underwent s/p [employer]tr[employer] PPM implant on 05/31/25, post op device check was normal and discharged home in improved condition. She currently presents to [facility] with AMS. LKW ~1100 on 06/25 while speaking to daughter over the phone, called dropped. Granddaughter later found patient ~1500 on 06/25 slumped in here chair and confused at home. Significant labs on admit: Hgb(9.0), Hct(27.7), BUN(37), Creatinine(1.40), INR(1.2), troponin(0.040). +Urine for EColi. +FBOT. 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 +Bloody stool noted, with coffee ground emesis. PROBATION OFFICER called and transferred to ICU this morning. NG Placed at 0945. RN with patient at time of attempted assessment. Deferred NFPE until follow-up. Discussed with MD via secureChat, agreeable to begin trophic EN once NG placement confirmed. Estimated Daily Nutrient Needs: Energy Requirements Based On: Kcal/kg Weight Used for Energy Requirements: [place] Weight for Energy Calculation (kg): 55 kg Total Energy Requirements (kcals/day): 0039-2471 (25-30 kcal/kg IBW) Weight Used for Protein Requirements: [place] Weight in Kg Used for Protein Requirements: [...] 190# 06/11/24) % Weight Change (Calculated): -3.1 [place] Body Weight (lbs) (Calculated): 120 lbs [place] Body Weight (Kg) (Calculated): 55 kg % [place] Body Weight (Calculated): 158.3 % BMI (kg/m2) [...] Discharge Planning: Too soon to determine Crissy M Basic, RDN, LDN, Contact: *[phone] Images from the original note were not included. PHYSICAL THERAPY [facility] Name/MRN: Mikel Winston ([id number]) Date: 06/26/2024 Therapy eval and treat orders received. Chart review complete. Pt in with AMS and initially able to respond to verbal cues. PROBATION OFFICER called this a.m. with pt experiencing multiple episodes of bloody stool, emesis, and reduced mental status only responding to painful stimuli. Spoke with RN regarding pt status. Pt currently being transferred to ICU. Pt not appropriate for therapy at this time. Will complete current orders d/t change in status this date. Please reorder therapy services when pt appropriate to participate. Philly Kam, PT Images from the original note were not included. OCCUPATIONAL THERAPY [facility] Name/MRN: Mikel Winston ([id number]) Date: 06/26/2024 Therapy eval and treat orders received. Chart review complete. Pt in with AMS and initially able to respond to verbal cues. PROBATION OFFICER called this a.m. with pt experiencing multiple [...] will be decided documented in this encounter [facility] 07-04-2024 Hospital course Narrative Images from the original note were not included. Hospitalist Discharge Summary Mikel Winston : 1945 Admit date: 06/25/2024 Discharge date: 07/04/2024 Admitting Physician: Erinn Saavedra MD Primary Care Physician: KOMAL COHN DO [...] back to baseline. Plan is discharge to [facility] Acute, acute on chronic, unstable/uncontrolled chronic [...] is at baseline. LABS: Recent Labs 07/02/2445407/03/241 07/04/24420 NA 135 136 136 K 3.9 3.9 3.8 CL 110* 111* 110* CO2 BUN 29* 25* 20* CREATININE 1.11* 1.14* 1.22* GLUCOSE 113* 106* 98 CALCIUM 8.0* 7.9* 8.4 Recent Labs 07/02/2445407/03/2414007/04/24420 WBC 7.3 6.9 5.7 RBC 2.41* 2.30* [...] Your Medications These medications were sent to [facility]/pharmacy #[id number] [facility] [address] [facility] [place] [place] [address] dextromethorphan-guaiFENesin 30-600 MG 12 hr tablet lactulose 10 GM/15ML solution Recommended Follow-up: Komal Cohn DO [address] [facility] [address] Schedule an appointment as soon as possible for a visit in 1 week(s) Hospital follow up Complexity of Follow up: [] Moderate Complexity: follow up within 7-14 calendar days (25127) [x] Severe Complexity: follow up within 7 calendar days (51268) Follow up Testing, Pending results or Referrals [...] Joni Gutierrez MD Division of Hospitalist Medicine Acute care [facility] 07/04/2024, 9:25 AM documented in this encounter [facility] 07-04-2024 Note Hospitalist Discharg e Summary Mikel Winston : 1945 Admit date: 06/25/2024 Discharge date: 07/04/2024 Admitting Physician: Erinn Saavedra MD Primary Care Physician: KOMAL COHN DO [...] due to hepatic encephalopathy. Rapid response called on06/26 due to not responding to verbal stimuli. [...] back to baseline. Plan is discharge to [facility] Acute, acute on chronic, unstable/uncontrolled chronic problems/diagnoses: Acute metabolic encephalopathy likely due to hepatic encephalopathy E. coli UTI Suspected GI bleed Acute hypernatremia CKD3 only, BARRY ruled out Elevated troponin due to demand ischemia Mild [...] Vitals: BP 142/62 Pulse 86 Temp 36.9 ?C (98.5 ?F) (Temporal) Resp 20 Ht 5' 4 (1.626 m) SpO2 99% BMI 36.56 kg/m? Pulse Ox: SpO2 Av.3 % Min: 93 [...] status is at baseline. LABS: Recent Labs 07/02/2445407/03/24 0141 07/04/24 0421 NA 135 136 136 K 3.9 3.9 3.8 CL 110* 111* 110* CO2 25 26 28 BUN 29* 25* 20* CREATININE 1.11* 1.14* 1.22* GLUCOSE 113* 106* 98 CALCIUM 8.0* 7.9* 8.4 Recent Labs 07/02/245 07/03/24 0141 07/04/24 0421 WBC 7.3 6.9 5.7 RBC [...] these medications furosemide 20 MG tablet Commonly kn (more content not included)... [facility] 07-03-2024 Miscellaneous Notes Discussed with primary team attending Dr. Guiterrez today. Patient's condition improving. Patient planned for [...] tried but unable to get trip to [place] booked before 4:30 pm. Trips are now booking out to 5:30 pm. Trip now scheduled for tomorrow 07/04 @ 1000. Called Heidi the Liaison form [facility] to update her that transport will be rescheduled for tomorrow 07/04/24 @ 1000. Length of Stay (Days): 8 GMLOS: 3.2 Attempted to dc patient to [facility] this afternoon however the earliest fish bait picker in Roundtrip was for 5:30 and [facility] are unable to accept patients after 4;30. Rescheduled the transport for tomorrow 07/04 at 10;00 am. Voicemail message left for patients daughter to update her with tomorrows dc date and time. [facility] did try to reach out to [facility] rachid update. Care Management Progress Note QUALITY ASSURANCE QA LAB TECHNICIAN taksed to complete 7000 and send DC packet and MAR to [facility]. set up transport for 2:30 pm. Updated Ryan Musessica at [facility] at DC time. Length of Stay (Days): 8 GMLOS: 3.2 Patient Choice Patient Name: MIKEL WINSTON Date of : 1945 All Providers Sent Referral Name: [facility], [employer]. Phone: [phone] Address: [address] [place] [address] Discharge med list transmitted to [facility] via [facility]port per TCC request. 7000 was entered into [facility] for the SNF- FACILITY IS AWARE Care [...] Progress Note Received call from Rosa at [facility] and informed me that Precert has been obtained and good till 07/05/[address]. [address] Gutierrez and plan is to DC pt tomorrow. [facility] of [facility]. DCP: Pt to go to SNF tomorrow. Length of Stay (Days): 7 GMLOS: 3.2 Care Management Progress Note Spoke with Liaison From [facility] and they did accept pt. She wants updated PT/OT notes. QUALITY ASSURANCE QA LAB TECHNICIAN tasked to send updated PT/OT notes so they can start precert auth on their end. Barrier to DC. Awaiting precert auth. Length of Stay (Days): 7 GMLOS: 3.2 Sent therapy notes to [facility] via Careport per TCC request. Await review and response regarding ability to accept. TCC notified. Referral placed to SNF-[facility] via [facility]port per TCC request. Await review and response regarding ability to accept. TCC notified. Care Management Progress Note Called to pt's room by front office secretary that pt wanted to speak to this TCC about SNF choice. Met with pt, introduced self and explained role. Pt's software build engineer and in the room. Pt gives this TCC permission to speak to them also about DC planning. Pt and software build engineer's Soheila Angulo [phone] want this TCC to make referral to [facility]. QUALITY ASSURANCE QA LAB TECHNICIAN tasked to make referral. Pt does not have any further SNF choices. Informed her that I will get back to her. Also received call from [facility] liaison and he states pt [...] Achieves stable or improved neurological status 06/30/2024 0624 by Erika Trent RN Outcome: Progressing 06/30/2024 0610 by Erika Trent RN Outcome: Progressing Problem: Hematologic - Adult Goal: Maintains hematologic stability 06/30/2024 0624 by Erika Trent RN Outcome: Progressing Flowsheets (Taken 06/30/2024 0617) Maintains hematologic stability: Assess for signs and symptoms of bleeding or hemorrhage Monitor labs for bleeding or clotting disorders 06/30/2024 0610 by Erika Trent RN Outcome: Progressing Problem: Potential for Falls Goal: I will remain free of falls 06/30/2024 0624 by Erika Trent RN Outcome: Progressing 06/30/2024 0610 by Erika Trent RN Outcome: Progressing Problem: Discharge Barriers Goal: My discharge needs are met 06/30/2024 0624 by Erika Trent RN Outcome: Progressing 06/30/2024 0610 by Erika Trent RN Outcome: Progressing This TCC was finally able to make contact with dtr/PORyan Arnel. Pt now downgraded to Medical, gave DC [...] from the original note were not included. [facility] Palliative Care Transitions of Care Note Mikel Winston : 1945 ADMIT DATE: 06/25/2024 DISCHARGE DATE: TBD PRIMARY CARE PHYSICIAN: KOMAL COHN DO CODE STATUS: DNR-CCA DISCHARGE DIAGNOSES: Principal Problem: Acute cystitis with hematuria HOSPITAL COURSE: Mikel Winston is a 78 y.o. female with PMHx of CAD S/P CABG 2009, PCI 2017, S/P PPM, DM2, HTN, Cirrhosis of the liver who was admitted to [facility] on 06/25 with complain of altered mental status. Patient had Rapid response called at 4.30 am on 06/26 as she was not responding to any verbal stimuli. Patient was transferred to ICU. Acute encephalopathy - multifactorial likely due to combination of hepatic encephalopathy, UTI - mental status improving, patient AxOx2-3 today Dysphagia - cleared by PARKING METER ATTENDANT for adult easy to chew food GI [...] Adult Goal: Maintains hematologic stability Flowsheets (Taken 06/27/2024 1749) Maintains hematologic stability: Assess for signs and [...] is maintained or improved Outcome: Not Progressing PROBATION OFFICER paged for decline in mental status. Per primary RN, pt was opening eyes to verbal stimuli previously in the shift, but is now only responding to painful stimuli. VSS. Pupils 2mm, equal and reactive to light. Pt also with several episodes of bloody stool, and one episode of emesis during rapid response. Dr. Saavedra at bedside. IV Zofran given per order. Labs drawn and sent. Pt then taken to CT scan by this RN and primary RN. Pt to remain on GMF at this time. documented in this encounter [facility] 07-03-2024 Note Care Management Prog ress Note SW tried but unable to get trip to [place] [facility] booked before 4:30 pm. Trips are now booking out to 5:30 pm. Trip now scheduled for tomorrow 07/04 @ 1000. Called Heidi the Liaison form [facility] to update her that transport will be rescheduled for tomorrow 07/04/24 @ 1000. Length of Stay (Days): 8 GMLOS: 3.2 [facility] 07-03-2024 Nurse Note Report called to [facility]. Pt transport is scheduled for 2:30pm. Patient was informed that her catheter needed to be removed per Doctors order. Patient currently has family visiting and is eating dinner and would like to wait until later. Patient was asked to call the nurse when she was ready for it to be removed. documented in this encounter [facility] 07-03-2024 Note Care Management Prog ress Note RICARDO kang to complete 7000 and send DC packet and MAR to [facility] SNF. SW set up transport for 2:30 pm. Updated Liasion Heidi at [facility] at DC time. Length of Stay (Days): 8 GMLOS: 3.2 [facility] 07-03-2024 Note Care Management Prog ress Note Dr. Gutierrez and RN taking care of pt secure chatted that auth for SNF placement has been obtained and if pt is ready today then will need FAM completed. Will continue to follow. Length of Stay (Days): 8 GMLOS: 3.2 [facility] 07-03-2024 Hospital Discharge instructions Joni Gutierrez MD - 07/03/2024 7:52 AM EST Images from the original note were not included. Continuity of Care Form Patient Name: Mikel Winston : 1945 Admit date: 06/25/2024 Discharge date: 07/03/24 Code Status Order: DNR-CCA Advance Directives: N Admitting Physician: Erinn Saavedra MD PCP: KOMAL COHN DO Discharging Nurse: Kelly Cunningham RN Discharging Hospital Unit/Room#: B2-249/B2-249 A Discharging Unit Phone Number: Emergency Contact: Extended Emergency Contact Information Primary Emergency Contact: Arnel Forte Mobile Relation: Child Secondary Emergency Contact: Costa Winston Mobile Relation: Child Past Surgical History: Past Surgical History: Procedure Laterality Date APPENDECTOMY CARDIAC ELECTROPHYSIOLOGY PROCEDURE N/A 05/31/2024 Performed by Pravin Poole MD at [facility] Cardiac Cath/EP Lab CHOLECYSTECTOMY CORONARY ARTERY [...] artery disease involving coronary bypass graft of [place] heart without angina pectoris Nonrheumatic aortic valve [...] assistance Toileting Total assistance Feeding Minimal assistance Fashion Consultant Sales Minimal assistance Med Delivery yes Wound Care [...] Date: 06/25/24 Discharging to Facility/ Agency Name: [facility] Address: [address] [place] [address] Fax: Dialysis Facility (if applicable) Name: Address: Dialysis Schedule: Phone: Fax: Automotive Repair Technician/Software Build Engineer signature: ICIAN SECTION Name: Mikel Ryan Ravindra Prognosis: fair Condition at Discharge: stable Rehab Potential (if transferring to Rehab): fair Recommended Labs or Other Treatments After Discharge: CMP, CBC and ammonia levels every 3 days The individual is being admitted to a nursing facility directly from an [facility] or a unit of a hospital that is not operated by or licensed by [facility] under section 5119.14 or 5160-3-15.1 5 The individual requires the level of services provided by a nursing facility for the condition for which he or she was treated in the hospital and, Physician Certification: I certify the above information and transfer of Mikel Winston is necessary for the continuing treatment of the diagnosis listed and that she requires alf facility for less than 30 days. Update Admission H&P: No change in H&P PHYSICIAN SIGNATURE: The following attachments cannot be sent through Care Everywhere.Acute Cystitis Discharge Instructions ([place]izen [place])Ammonia Blood Test ([place])documented in this encounter [facility] 07-02-2024 Note Care Management Prog ress Note Received call from Rosa at [facility] and informed me that Precert has been obtained and good till 07/05/24. Informed Dr. Gutierrez and plan is to DC pt tomorrow. [facility] notified of this [facility] DCP: Pt to go to SNF tomorrow. Length of Stay (Days): 7 GMLOS: 3.2 [facility] 07-02-2024 Note Care Management Prog ress Note Spoke with Liaison From [facility] and they did accept pt. She wants updated PT/OT notes. QUALITY ASSURANCE QA LAB TECHNICIAN tasked to send updated PT/OT notes so they can start precert auth on their end. Barrier to DC. Awaiting precert auth. Length of Stay (Days): 7 GMLOS: 3.2 [facility] 07-02-2024 Note OCCUPATIONAL THERAPY [facility] Initial Evaluation Name/MRN: Mikel Winston ([id number]) Evaluation Date: 07/02/2024 Date of : 1945 [...] address the below. Recommend planned discharge for [facility] OT with assist PRN. Admitting Diagnosis: AMS, [...] 05/31/2024 Performed by Pravin Poole MD at [facility] Cardiac Cath/EP Lab CHOLECYSTECTOMY CORONARY ARTERY BYPASS GRAFT TOTAL KNEE ARTHROPLASTY Right TUBAL LIGATION Admission Diagnosis: Patient Active Problem List Diagnosis Date Noted Angina at rest ([facility]) 12/26/2017 Acute cystitis with hematuria 06/25/2024 Cellulitis of right lower extremity 01/28/2024 BARRY (acute kidney injury) ([facility]) 11/18/2022 UTI (urinary tract infection) 11/18/2022 Coronary artery disease involving coronary bypass graft of [place] heart without angina pectoris 09/30/2022 Nonrheumatic aortic valve stenosis 09/30/2022 Essential hypertension 09/30/2022 Dyslipidemia 09/30/2022 Generalized edema 01/27/2022 Diabetes ([facility]) 01/27/2022 Symptomatic sinus bradycardia 05/29/2024 Medical [...] Responsibilities: Independent Receives Help From: None Active Hydrate Thickener Operator: No Prior Level of Function Prior Level [...] all functional tasks. Upper Extremity Assessment AROM: Exce (more content not included)... [facility] 07-02-2024 Note PHYSICAL THERAPY [facility] Initial Evaluation Name/MRN: Mikel Winston ([id number]) Evaluation Date: 07/02/2024 Date of : 1945 [...] CT head (-). Pt recently admitted to [facility] for pacemaker placement 05/31/2024. Pt was [...] 05/31/2024 Performed by Pravin Poole MD at [facility] Cardiac Cath/EP Lab CHOLECYSTECTOMY CORONARY ARTERY BYPASS GRAFT TOTAL KNEE ARTHROPLASTY Right TUBAL LIGATION Admission Diagnosis: Patient Active Problem List Diagnosis Date Noted Angina at rest ([facility]) 12/26/2017 Acute cystitis with hematuria 06/25/2024 Cellulitis of right lower extremity 01/28/2024 BARRY (acute kidney injury) ([facility]) 11/18/2022 UTI (urinary tract infection) 11/18/2022 Coronary artery disease involving coronary bypass graft of [place] heart without angina pectoris 09/30/2022 Nonrheumatic aortic [...] Responsibilities: Independent Receives Help From: None Active Hydrate Thickener Operator: No Prior Level of Function Prior Level [...] demos retro lean in sitting. Once in (more content not included)... [facility] 07-02-2024 Note Hospitalist Progress Note 07/02/2024 Subjective: Admit Date: [...] 3.7 3.9 CL 117* 113* 110* CO2 23 25 25 BUN 48* 37* 29* CREATININE 1.15* 1.18* 1.11* GLUCOSE 131* 143* 113* CALCIUM 8.4 8.1* 8.0* ANIONGAP 3 2* 0* LIVER PROFILE: Recent Labs 06/30/24 0516 07/01/2432607/02/24 0455 AST 43 51* 50* ALT 24 [...] Patient Position: Lying) Pulse 88 Temp 36.9 ?C (98.4 ?F) (Temporal) Resp 18 Ht 5' 4 (1.626 m) SpO2 99% BMI 36.56 kg/m? Pulse Ox: SpO2 Av.2 % Min: 96 [...] (PEG) 3350, sodium chloride, sodium chloride, sodium ch (more content not included)... [facility] 07-02-2024 Note Referral placed to [facility] via [facility] per [facility] request. Await review and response regarding ability to accept. [facility] notified. [facility] 07-02-2024 Note Care Management Prog ress Note Called to pt's room by front office secretary that pt wanted to speak to this TCC about SNF choice. Met with pt, introduced self and explained role. Pt's software build engineer and in the room. Pt gives this TCC permission to speak to them also about DC planning. Pt and software build engineer's Soheila Angulo [phone] want this TCC to make referral to [facility] SNF. QUALITY ASSURANCE QA LAB TECHNICIAN tasked to make referral. Pt does not have any further SNF choices. Informed her that I will get back to her. Also received call from [facility] Select liaison and he states pt is NOT Select appropriate at this time. Awaiting SNF acceptance then will need precert auth DCP; SNF when medically stable and authorization approved. . Length of Stay (Days): 7 LOS: 3.2 [facility] 07-01-2024 Note Hospitalist Progress Note 07/01/2024 Subjective: Admit Date: [...] CBC: Recent Labs 06/29/24 0402 06/30/24 0516 07/01/24326 WBC 9.4 6.9 7.7 RBC 2.96* 2.42* 2.51* HGB 9.3* 7.5* 7.9* HCT 30.0* 24.7* 25.8* MCV 101.4* 102.1* 102.8* RDW 15.3* 15.0 14.9 PLT 95* 74* 86* BMP: Recent Labs 06/29/24 0402 06/30/24 0516 07/01/24326 NA 145 142 140 K 3.7 3.5 3.7 CL 120* 117* 113* CO2 21* 23 25 BUN 51* 48* 37* CREATININE 1.25* 1.15* 1.18* GLUCOSE 190* 131* 143* CALCIUM 9.0 8.4 8.1* ANIONGAP 4 3 2* LIVER PROFILE: Recent Labs 06/29/24 0402 06/30/24 0516 07/01/24326 AST 53* 43 51* ALT 26 24 [...] Patient Position: Sitting) Pulse 84 Temp 36 ?C (96.8 ?F) (Temporal) Resp 19 Ht 5' 4 (1.626 m) SpO2 100% BMI 36.56 kg/m? Pulse Ox: SpO2 Av.7 % Min: 94 [...] CAT3) Acute, acute on chronic, unstable/uncontrolled chronic problems/di (more content not included)... [facility] 06-29-2024 Note [facility] Attending GI Progress Note SUBJECTIVE: No events overnight. Family at bedside. Improvement in mental status. Tolerating tube feeds. Lactulose through NG tube. + Bowel movement. No overt bleeding overnight. Hemoglobin has been stable Medications @MEDCMED@ OBJECTIVE VITALS: BP 156/69 (BP Location: Right arm, Patient Position: Sitting) Pulse 85 Temp 36.5 ?C (97.7 ?F) (Temporal) Resp 18 Ht 5' 4 (1.626 m) SpO2 100% BMI 36.56 kg/m? TEMPERATURE: Current - Temp: 36.5 ?C (97.7 ?F); Max - Temp Av.8 ?C (98.2 ?F) Min: 36.3 ?C (97.4 ?F) Max: 37.4 ?C (99.3 ?F) RESPIRATIONS RANGE: Resp Av.5 Min: 14 Max: [...] office of Kriss Mccray Glessing, and Arpan. [facility] 06-29-2024 Note Palliative Care Prog ress Note Chief Complaint: Mikel Winston is a [...] patient AxOx2-3 today Dysphagia - cleared by PARKING METER ATTENDANT for adult easy to chew food GI [...] is a 78 y.o. female admitted to [facility] on 06/25 for altered mental status. Patient seen and examined this morning. Patient's mental status improving, was AxOx-2- 3 today. Patient's daughter in law at bedside. Patient seen by PARKING METER ATTENDANT, started on easy to chew diet. NG [...] be obtained due to patient's mental status Westfir Symptom Assessment Score Westfir Score Pain Score 0 Tiredness Score 6 [...] status: alone Work history: retired, worked in [employer] Family Meeting: (if discussing Advanced Care Planning, include .ACPDOCUMENTATION) Participants: extended family Family meeting was held to discuss:Diagnosis and Prognosis, Goals of Care, Treatment Options, Symptom Management, Advanced Care Planning, and Prior Expressed Wishes Objective: Physical Exam BP (!) 168/77 Pulse 103 Temp 36.9 ?C (98.4 ?F) (Axillary) Resp 18 Ht 5' 4 (1.626 m) SpO2 100% BMI 36.56 kg/m? Constitutional: Appearance: She is ill-appearing. HENT: Head: [...] lower leg: No edema. Left lower leg: N (more content not included)... [facility] 06-28-2024 Note [facility] Attending GI Progress Note SUBJECTIVE: No events overnight. Family at bedside. Lethargy, responds to pain, getting tf. No overt bleeding overnight. Medications @MEDCMED@ OBJECTIVE VITALS: BP 153/62 Pulse 111 Temp 36.3 ?C (97.4 ?F) (Axillary) Resp 21 Ht 5' 4 (1.626 m) SpO2 98% BMI 36.56 kg/m? 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 Pricilla Steinberg MD Time-based code 30276 for 16-45 minutes. Add-on code 39069 at 46 minutes and each additional 30 [...] 05/31/2024 Performed by Pravin Poole MD at [facility] Cardiac Cath/EP Lab CHOLECYSTECTOMY CORONARY ARTERY BYPASS GRAFT TOTAL KNEE ARTHROPLASTY Right TUBAL LIGATION Family History Problem Relation Name Age of Onset Stroke Father's Brother Diabetes Father Mental illness Mother Coronary artery disease Brother Unable to obtain family history due to patient unresponsive Allergies Allergen Reactions Codeine Zainab Review of Systems ROS: See palliative care ROS/ESAS below; Detail ROS unable to be obtained due to patient's mental status Westfir Symptom Assessment Score [place]fir Score Pain Score 0 per FLACC Tiredness [...] Score: 0 Assessed by: provider. Social history: status: no Marital status: Living status: alone Work history: retired, worked in [employer] Family Meeting: Participants: extended family Family meeting [...] 05/31/2024 Performed by Pravin Poole MD at [facility] Cardiac Cath/EP Lab CHOLECYSTECTOMY CORONARY ARTERY [...] needed (for muscle pain). 06/01/24 06/01/25 Kyung Hogan, WAITER/WAITRESS FORMAL - METAL MELTER Current Facility-Administered Medications Medication Dose Route Frequency [...] at 06/25/24 1848 50 mL/hr at 06/25/24 184 sodium chloride 0.9 % infusion 250 mL/hr IntraVENous PRN Danyell Stringer MD sodium chloride 0.9 % infusion 250 mL/hr IntraVENous PRN Donna Del Angel, WAITER/WAITRESS FORMAL - METAL MELTER sodium chloride 0.9% (NS) flush 5-40 mL [...] lesions. Neurologic: Non-responsive LABS: CBC: Recent Labs 06/25/24173706/26/24 0310 06/26/24 0513 06/26/24 0608 06/26/24 0817 [...] -- -- -- -- BMP: Recent Labs 06/25/24 1738 06/26/24 0513 06/26/24 0852 NA 141 142 142 K 3.6 3.9 3.8 CL 114* 116* 117* CO2 21* 19* 18* BUN 37* 42* 42* CREATININE 1.40* 1.39* 1.34* GLUCOSE 147* 155* 156* CALCIUM 9.7 9.4 9.4 ANIONGAP 7 7 7 LIVER PROFILE: Recent Labs 06/25/24 1738 06/26/24 0513 06/26/24 0852 AST 45 43 44 [...] and PM, DM, HTN, CKD, thyroid disease, [facility] cirrhosis who was brought to the ED [...] to severe toxic metabolic encephalopathy Problem List: [facility] [place] cirrhosis - no notes in chart, seen [...] 05/31/2024 Performed by Pravin Poole MD at [facility] Cardiac Cath/EP Lab CHOLECYSTECTOMY CORONARY ARTERY [...] 10 min Stress: Stress Concern Present (01/28/2024) [place] [place] [employer] - Occupational Stress Questionnaire Feeling of Stress : To some extent Social Connections: Moderately Integrated (01/28/2024) Social Connection and Isolation Panel [NHANES] Frequency of Communication with Friends and Family: More than three times a week Frequency of Social Gatherings with Friends and Family: More than three times a week Attends [employer] Services: More than 4 times per year [...] needed (for muscle pain). 06/01/24 06/01/25 Kyung Hogan, WAITER/WAITRESS FORMAL - METAL MELTER Objective: Oxygen Delivery: VITALS: BP 151/63 (BP [...] Normal [] Scar/Lesion/Mass Inspection of teeth/lips/gums Dentition: [][place]ling Teeth []Dentures Lips/Gums: []Intact []Lesion Present Mucosa: [][place] []Moist []Dry Neck: External Appearance Overall Appearance: [...] 89 -- 74 Glucose: Recent Labs 06/25/24 17106/25/24173706/25/24 2246 06/26/24 0513 06/26/24 0800 GLUCOSE -- [...] -- ABGs: No results for input(s): PHART, GRI2NIM, PO2ART, JXW4VMC, SO2ART, K9FNRDCF in the last 72 hours. Lactic Acid: [...] physicians, excluding procedures. documented in this encounter [facility] 06-27-2024 Note [facility] Attending GI Progress Note SUBJECTIVE: lethargy, responds to pain, getting tf. Reportedly had 2 small marroon-erinn stools Medications @MEDCMED@ OBJECTIVE VITALS: BP 126/62 (BP Location: Right arm, Patient Position: Lying) Pulse 109 Temp 37.1 ?C (98.8 ?F) (Axillary) Resp 14 Ht 1.626 m (5' 4) SpO2 100% BMI 36.56 kg/m? TEMPERATURE: Current - Temp: 37.1 ?C (98.8 ?F); Max - Temp Av.9 ?C (98.4 ?F) Min: 36.6 ?C (97.9 ?F) Max: 37.1 ?C (98.8 ?F) RESPIRATIONS RANGE: Resp Av.7 Min: 13 Max: [...] serogies once stable, or if lft increase [facility] 06-26-2024 Note [facility] Respiratory Care Department Progress Note As [...] Respiratory in the care of this patient, [facility] 06-26-2024 Note [facility] [address] [place] [id number] ROUTINE EEG REPORT Patient Name: Mikel Winston : 1945 Date of Study: 06/26/2024 Duration Recorded: 22 minutes EEG#: [id number] RELIABILITY SPECIALIST: TAE PROVIDER REQUESTING STUDY: Danyell Stringer MD [...] study with video was carried out at [place]. Scalp electrodes were positioned in person by an medical laboratory technologist, following patient education, according to the 10-20 International system of electrode placement and maintained for integrity and quality of the recording. EEG data with video was recorded continuously and digitally stored. The medical laboratory technologist reviewed all automated detections and manual [...] triphasic wave complexes. These complexes demonstrated an wrrdqwud-uu-tahemfpje phase delay. Time Elapsed: 00:05:53 INTERICTAL EPILEPTIFORM ACTIVITY: No epileptiform activity was seen. ICTAL ACTIVITY: No ictal activity was seen. NON-EPILEPTIC EVENTS: (more content not included)... [facility] 06-26-2024 Procedure note Associated Ord er(s): EEG Images from the original note were not included. [facility] [address] [place] [address] ROUTINE EEG REPORT Patient Name: Mikel Winston : 1945 Date of Study: 06/26/2024 Duration Recorded: 22 minutes EEG#: [id number] RELIABILITY SPECIALIST: TAE PROVIDER REQUESTING STUDY: Danyell Stringer MD [...] study with video was carried out at [place]. Scalp electrodes were positioned in person by an medical laboratory technologist, following patient education, according to the 10-20 International system of electrode placement and maintained for integrity and quality of the recording. EEG data with video was recorded continuously and digitally stored. The medical laboratory technologist reviewed all automated detections and manual [...] triphasic wave complexes. These complexes demonstrated an hrjjujpy-vg-aajakxglk phase delay. Time Elapsed: 00:05:53 INTERICTAL EPILEPTIFORM ACTIVITY: No epileptiform activity was seen. ICTAL ACTIVITY: No ictal activity was seen. NON-EPILEPTIC EVENTS: None. ACTIVATION PROCEDURES: Photic stimulation was not performed. Hyperventilation was not performed. IMPRESSION AND ACTIONS TAKEN: This routine EEG with video is abnormal. Continuous azyqsuio-ju-nvesxa diffuse slowing is seen with intermixed triphasic waves. This activity was unresponsive to stimulation. No seizures are captured. No sleep architecture is seen. The findings are consistent with a lauvycee-nh-mqvzii toxic-metabolic encephalopathy. Mark Chase MD PhD Epilepsy Attending documented in this encounter [facility] 06-26-2024 Note GASTROENTEROLOGY INI TIAL CONSULTATION NOTE 06/26/2024 Patient: Mikel Winston : [...] 05/31/2024 Performed by Pravin Poole MD at [facility] Cardiac Cath/EP Lab CHOLECYSTECTOMY CORONARY ARTERY [...] pain). 06/01/24 06/01/25 Kyung Hogan APRN - METAL MELTER Current Facility-Administered Medications Medication Dose Route Frequency [...] Oral Daily Danyell Stringer MD cyanocobalamin (Vitamin B (more content not included)... [facility] 06-25-2024 Note Attending History an d Physical Admit Date: 06/25/2024 PCP: KOMAL COHN [...] 05/31/2024 Performed by Pravin Poole MD at [facility] Cardiac Cath/EP Lab CHOLECYSTECTOMY CORONARY ARTERY [...] 10 min Stress: Stress Concern Present (01/28/2024) [place] [place] [employer] - Occupational Stress Questionnaire Feeling of Stress : To some extent Social Connections: Moderately Integrated (01/28/2024) Social Connection and Isolation Panel [NHANES] Frequency of Communication with Friends and Family: More than three times a week Frequency of Social Gatherings with Friends and Family: More than three times a week Attends [employer] Services: More than 4 times per year [...] tablet 3 SITagliptin (Januvia) 25 MG tablet Santiago (more content not included)... [facility] 06-25-2024 History and physical note Attending History [...] 05/31/2024 Performed by Pravin Poole MD at [facility] Cardiac Cath/EP Lab CHOLECYSTECTOMY CORONARY ARTERY [...] 10 min Stress: Stress Concern Present (01/28/2024) [place] [place] [employer] - Occupational Stress Questionnaire Feeling of Stress : To some extent Social Connections: Moderately Integrated (01/28/2024) Social Connection and Isolation Panel [NHANES] Frequency of Communication with Friends and Family: More than three times a week Frequency of Social Gatherings with Friends and Family: More than three times a week Attends [employer] Services: More than 4 times per year [...] Jann,Arnel Mobile Relation: Child Secondary Emergency Contact: Costa [...] - DO NOT do CPR, intubation] [_] [DNR-COLLECTION SUPPORT SPECIALIST - Comfort care only] [_] DNR form [...] life care, with patient and/or family/surrogate. Erinn Saavedra MD [facility] documented in this encounter [facility] 06-25-2024 Emergency department Note Emergency Department Encounter [facility] CARDIAC PROGRESSIVE CARE UNIT PCU 2E Patient: Mikel Winston : 1945 Date of Evaluation: 06/25/2024 ED PARESH Provider: CORNEL Rosenare was supervised by Dr. David who independently [...] voice. Patient denies pain at this time YAVAPAI-PRESCOTT I was wearing a N95, Surgical mask [...] 05/31/2024 Performed by Pravin Poole MD at [facility] Cardiac Cath/EP Lab CHOLECYSTECTOMY CORONARY ARTERY [...] 10 min Stress: Stress Concern Present (01/28/2024) [place] [place] [employer] - Occupational Stress Questionnaire Feeling of Stress : To some extent Social Connections: Moderately Integrated (01/28/2024) Social Connection and Isolation Panel [NHANES] Frequency of Communication with Friends and Family: More than three times a week Frequency of Social Gatherings with Friends and Family: More than three times a week Attends [employer] Services: More than 4 times per year [...] artery disease involving coronary bypass graft of [place] heart without angina pectoris SITagliptin (Januvia) 25 [...] 399 ms QTC Interval 507 ms P [place] 46 degrees QRS [place] -12 degrees T Wave [place] 173 degrees CO Interval 229 ms CBC auto differential Collection [...] Department Physician in the absence of a continuous improvement coach. see their note for interpretation of EKG. [...] Chronic renal insufficiency noted. Patient admitted to [facility]. Final Diagnosis: 1. Acute cystitis with hematuria [...] 250 mL (0 mL IntraVENous Stopped 06/25/24 1833) cefTRIAXone (Rocephin) 1,000 mg in sodium chloride 0.9 % 50 mL IVPB Mini-Bag Plus (1,000 mg IntraVENous New Bag 06/25/24 1943) CRITICAL CARE TIME CONSULTS: None PROCEDURES: Unless otherwise noted below, none Procedures DISPOSITION/PLAN Admit 06/25/2024 07:54:55 PM PATIENT REFERRED TO: No follow-up provider specified. DISCHARGE MEDICATIONS: Current Discharge Medication List @[facility]([id number]:LAST:1)@ (Please note: Portions of this note were completed with a voice recognition program. Efforts were made to edit the dictations but occasionally words and phrases are mis-transcribed.) Form [id number] Lawson Melvin PA-C [employer] Lawson Melvin PA-C 06/25/242037 Cosigned by Kaiden David MD at 06/25/2024 9:14 PM EST Emergency Department Encounter [facility] ED Patient: Mikel Winston : 1945 [...] provider for clarification.) Kaiden David MD Acute Care [facility] Kaiden David MD 06/25/241941 documented in this encounter [facility] 06-25-2024 Note Emergency Department Encounter [facility] CARDIAC PROGRESSIVE CARE UNIT PCU 2E Patient: [...] voice. Patient denies pain at this time YAVAPAI-PRESCOTT I was wearing a N95, Surgical mask [...] her chair, confused. Normally she lives [place], ambulates without assistance, no confusion. Currently she [...] 05/31/2024 Performed by Pravin Poole MD at [facility] Cardiac Cath/EP Lab CHOLECYSTECTOMY CORONARY ARTERY [...] 10 min Stress: Stress Concern Present (01/28/2024) [place] [place] [employer] - Occupational Stress Questionnaire Feeling of Stress : To some extent Social Connections: Moderately Integrated (01/28/2024) Social Connection and Isolation Panel [NHANES] Frequency of Communication with Friends and Family: More than three times a week Frequency of Social Gatherings with Friends and Family: More than three times a week Attends [employer] Services: More than 4 times per year [...] tablet Take 1 tablet (20 mg) by mout (more content not included)... [facility] 06-11-2024 Note HNO ID: [id number] Author: KOMAL COHN DO Service: ? Author Type: Physician Type: Progress Notes Filed: 06/18/2024 19:25 Note Text: [facility] Brandi Cohn DO [address] [place] [address] Date of Evaluation: 06/11/2024 Patient Name: Mikel Winston : 1945 Chief Complaint: Patient presents with: Hospital Discharge: 06/01/24 [facility], pace maker placement. Skin Check: Skin tag right upper shoulder area Nursing Intake: There are no exam notes on file for this visit. Subjective Ms. Winston is a 78 year old female who presents with the following complaint(s): Patient presents to follow up from [facility] 05/29/24-06/01/24. Patient began to feel tired [...] pulses. Heart al (more content not included)... [facility] 06-11-2024 History of Present illness Narrative Images from the original note were not included. [facility] Lalit [address] [place] [address] Date of Evaluation: 06/11/2024 Patient Name: Mikel Winston : 1945 Chief Complaint: Patient presents with: Hospital Discharge: 06/01/24 [facility], pace maker placement. Skin Check: Skin tag right upper shoulder area Nursing Intake: There are no exam notes on file for this visit. Subjective Ms. Winston is a 78 year old female who presents with the following complaint(s): Patient presents to follow up from [facility] 05/29/24-06/01/24. Patient began to feel tired [...] kidney disease) stage 4, GFR 15-29 ml/min ([facility]) - ICD9: 585.4, ICD10: N18.4 - [...] [place] June 11, 2024 1:49 PMProvider Attestation: I, Komal Cohn DO personally [...] 2024 1:57 PM documented in this encounter [facility] 06-06-2024 Telephone encounter Note Christie sanchez [facility] called and left a [...] know that but she will be here. [facility] 06-06-2024 Miscellaneous Notes Christie with [facility] called and [...] will be here. documented in this encounter [facility] 06-01-2024 Nurse Note RN removed patients ivs. RN reviewed discharge instructions with patient. Patient belongings gathered. Patient ready for discharge waiting for ride. [facility] 06-01-2024 Nurse Note RN removed patients ivs. RN reviewed discharge instructions with patient. Patient belongings gathered. Patient ready for discharge waiting for ride. Report called to [facility] . Pt and family aware of transport to facility. documented in this encounter [facility] 06-01-2024 Miscellaneous Notes Patient Choice Patient Name: MIKEL WINSTON Date of : 1945 All Providers Sent Referral Name: [facility] Phone: [phone] Address: [address] [place] [address] Start PACC Note Home Health Referral Educated patient on Home Care and services available. Patient offered choice of available HHC and agreeable to SN services with [facility] at [facility] - Home Care. Care Types: None Isolation Precautions: No active isolations Social Determinates of Health: Tobacco Use: Medium Risk (04/27/2024) Received from [facility] Patient History Smoking Tobacco Use: Former Smokeless [...] is noted as yes - consider a PROJECT SPECIALIST evaluation once the patient returns home. START PATIENT REGISTRATION INFORMATION Order Information Order Signing Physician: Damien Marie MD Service Ordered RN ?: Yes Service Ordered PT ?: No Service Ordered OT ?: No Service Ordered ST ?: No Service Ordered PROJECT SPECIALIST?:No Service Ordered PLUMBER PIPE FITTING?: No Following Physician: KOMAL COHN DO Following Physician Overseeing Physician: KOMAL COHN DO (Required for Residents only) Agreeable to Follow? Yes Date/Time of Call 06/01/24 11:27 AM, Spoke with: Staff Care Coordination Same Day SOC?: No Primary Care Physician: KOMAL COHN DO Primary Care Physician Primary Care Physician Address: [address] [place] [address] / [place] [address] Visit Instructions: Recent patient would like Shira again. Declined PT but could probably use it. Service Discharge Location Type: Home with Home Care Service Facility Name: N/A Service Floor Facility: N/A Service Room No: N/A Demographics Patient Last Name: Ravindra Patient First Name: Mikel Language/Communication Barrier: n/a Service Address: [address] [place] [address] Service City: [facility] ST: [place] Service ZIP: [address] Service (home) Other phone numbers: Telephone Information: Emergency Contact: Extended Emergency Contact Information Primary Emergency Contact: Arnel Forte Mobile Relation: Child Secondary Emergency Contact: RavindraCosta Mobile Relation: Child Admission Information Admit Date: 05/29/2024 Patient status at discharge: Inpatient Admitting Diagnosis: Elevated troponin [R79.89] Elevated brain natriuretic peptide (BNP) level [R79.89] Symptomatic sinus bradycardia [R00.1] Caregiver Information Caregiver First Name: n/a Caregiver Last Name: n/a Caregiver Relationship to Patient n/a Caregiver Phone Number: n/a Caregiver Notes: N/A Education Elements-Tech List No END PATIENT REGISTRATION INFORMATION Pt [...] echo 04/2024, DM2, CKD 3 went to [place] ED on 05/30/2024 with fatigue and shortness of breath x 2-3days and was found to be in 2-1 AV block and was then transferred to [facility] for pacemaker need. Discharge Date: 06/01/24 Referral Source-PACC: (Hospital/Unit): [facility] / [id number]/[id number] A End PACC Note Problem: Knowledge Deficit Goal: Patient/family/caregiver demonstrates understanding of disease process, treatment plan, medications, and discharge instructions Outcome: Progressing Problem: Potential for Compromised Skin Integrity Goal: Skin Integrity is Maintained or Improved Outcome: Progressing Care Management Progress Note PM placed yesterday. Per therapy evaluation. Recommendation is SNF. Patient declines SNF. Agreeable to HC RN. Referral in [facility] to [facility]. Length of Stay (Days): 3 GMLOS: 2.3 [...] Goal: Nutritional status is improving Outcome: Progressing Drawing In Hand following case for Discharge Needs. Pt is currently not active with [facility] at [facility], was discharged 05/09/2024. Care Managment Initial Assessment Date: 05/30/2024 Patient Name: Mikel Winston : 1945 Patient Information Source of Information: Patient Cognition/Language: WFL - Within Functional Limits Permission given to speak with patient healthcare sales representative/caregiver as indicated: Yes (DTR Arnel Forte or (Bharti), ) Confirmation of Payer with patient/family: Yes Payer Name: [employer] Business : No Confirmation of Primary Care Physician: [...] Daily Living Prescription Coverage: Yes Pharmacy Used: [facility] in [facility] Medication Management: Assistance Type: Dose [...] Additional Information: Chart reviewed. Patient admitted to [facility] for treatment of bradycardia. Noted to have possibly been taking too much beta partha at home. Atenolol currently on hold. Regular diet. Cardiology following -plan in place to hold atenolol and monitor. If AV block does not resolve may need pacemaker. If so, will need transferred to [facility] for this procedure. Met with patient [...] plan: Home with resumption of home care. [facility] did request pt/ot evaluations to Dr. Garza. Lilibeth Laurent RN The patient is Moderately Stable - Low risk of patient condition declining or worsening The patient's goals for the shift include to feel better/rest The clinical goals for the shift include stable heart rate documented in this encounter [facility] 06-01-2024 Note Formatting of this n ote might be different from the original. Patient Choice Patient Name: MIKEL WINSTON Date of : 1945 All Providers Sent Referral Name: [facility] Phone: [phone] Address: [address] [place] [id number] [facility] 06-01-2024 Note Formatting of this n ote might be different from the original. Patient Choice Patient Name: MIKEL WINSTON Date of : 1945 All Providers Sent Referral Name: [facility] Phone: [phone] Address: [address] [place] [id number] [facility] 06-01-2024 History of Present illness Narrative BMP orders for 1 week post hospital prior to PCP appt. documented in this encounter [facility] 06-01-2024 Note Formatting of this n ote is different from the original. Start PACC Note Home Health Referral Educated patient on Home Care and services available. Patient offered choice of available HHC and agreeable to SN services with [facility] - Home Care. Care Types: None Isolation Precautions: No active isolations Social Determinates of Health: Tobacco Use: Medium Risk (04/27/2024) Received from [facility] Patient History Smoking Tobacco Use: Former Smokeless [...] is noted as yes - consider a PROJECT SPECIALIST evaluation once the patient returns home. START PATIENT REGISTRATION INFORMATION Order Information Order Signing Physician: Damien Marie MD Service Ordered RN ?: Yes Service Ordered PT ?: No Service Ordered OT ?: No Service Ordered ST ?: No Service Ordered PROJECT SPECIALIST?:No Service Ordered PLUMBER PIPE FITTING?: No Following Physician: KOMAL COHN DO Following Physician Overseeing Physician: KOMAL COHN DO (Required for Residents only) Agreeable to Follow? Yes Date/Time of Call 06/01/24 11:27 AM, Spoke with: Staff Care Coordination Same Day SOC?: No Primary Care Physician: KOMAL COHN DO Primary Care Physician Primary Care Physician Address: [address] [place] [address] / [facility] [id number] Visit Instructions: Recent patient would like Shira again. Declined PT but could probably use it. Service Discharge Location Type: Home with Home Care Service Facility Name: N/A Service Floor Facility: N/A Service Room No: N/A Demographics Patient Last Name: Ravindra Patient First Name: Mikel Language/Communication Barrier: n/a Service Address: [address] [place] [address] Service City: [facility] ST: [place] Service ZIP: [address] Service (home) Other phone numbers: Telephone Information: [...] Caregiver Phone Number: n/a Caregiver Notes: N/A Education Elements-Dynis List No END PATIENT REGISTRATION INFORMATION Pt [...] echo 04/2024, DM2, CKD 3 went to [place] ED on 05/30/2024 with fatigue and shortness of breath x 2-3days and was found to be in 2-1 AV block and was then transferred to [facility] for pacemaker need. Discharge Date: 06/01/24 Referral Source-PACC: (Hospital/Unit): [facility] / W4-423/W4-423 A End PACC Note [facility] 06-01-2024 Note Formatting of this n ote is different from the original. Start PACC Note Home Health Referral Educated patient on Home Care and services available. Patient offered choice of available HHC and agreeable to SN services with [facility] - Home Care. Care Types: None Isolation Precautions: No active isolations Social Determinates of Health: Tobacco Use: Medium Risk (04/27/2024) Received from [facility] Patient History Smoking Tobacco Use: Former Smokeless [...] is noted as yes - consider a PROJECT SPECIALIST evaluation once the patient returns home. START PATIENT REGISTRATION INFORMATION Order Information Order Signing Physician: Damien Marie MD Service Ordered RN ?: Yes Service Ordered PT ?: No Service Ordered OT ?: No Service Ordered ST ?: No Service Ordered PROJECT SPECIALIST?:No Service Ordered PLUMBER PIPE FITTING?: No Following Physician: KOMAL COHN DO Following Physician Overseeing Physician: KOMAL COHN DO (Required for Residents only) Agreeable to Follow? Yes Date/Time of Call 06/01/24 11:27 AM, Spoke with: Staff Care Coordination Same Day SOC?: No Primary Care Physician: KOMAL COHN DO Primary Care Physician Primary Care Physician Address: [address] [place] [address] / [facility] [id number] Visit Instructions: Recent patient would like Shira again. Declined PT but could probably use it. Service Discharge Location Type: Home with Home Care Service Facility Name: N/A Service Floor Facility: N/A Service Room No: N/A Demographics Patient Last Name: Ravindra Patient First Name: Mikel Language/Communication Barrier: n/a Service Address: [address] [place] [address] Service City: [facility] ST: [place] Service ZIP: [address] Service (home) Other phone numbers: Telephone Information: [...] Caregiver Phone Number: n/a Caregiver Notes: N/A Education Elements-Dynis List No END PATIENT REGISTRATION INFORMATION Pt [...] echo 04/2024, DM2, CKD 3 went to [place] ED on 05/30/2024 with fatigue and shortness of breath x 2-3days and was found to be in 2-1 AV block and was then transferred to [facility] for pacemaker need. Discharge Date: 06/01/24 Referral Source-PACC: (Hospital/Unit): [facility] / W4-423/W4-423 A End PACC Note [facility] 06-01-2024 Plan of care note Problem: Knowledge Deficit Goal: Patient/family/caregiver demonstrates understanding of disease process, treatment plan, medications, and discharge instructions Outcome: Progressing Problem: Potential for Compromised Skin Integrity Goal: Skin Integrity is Maintained or Improved Outcome: Progressing [facility] 06-01-2024 Hospital course Narrative Images from [...] 3, HTN, and hypothyroidism who presented to [place] ED 05/29/24 for bilateral leg swelling, shortness of breath and fatigue x1 week, noted her pulse ox at home with HR of 35 BPM. EKG on arrival showed 2:1 AV block HR 30's, her atenolol was held at that time in hopes the bradycardia would resolve. Decision was made to transfer to [facility] 05/30 for PPM placement. She is [...] Nephrology appt Jun 11 @ 2:20 in [place], PCP BMP in one week post hospital [...] Complexity: follow up within 7-14 calendar days (12357) [] Severe Complexity: follow up within 7 calendar days (00128) FOLLOW UP TESTING, PENDING RESULTS OR REFERRALS AT TRANSITIONAL CARE VISIT: [] Yes [x] No PENDING STUDIES: None DISPOSITION: Home Follow up with [facility] [address] [id number] [address] Go on 06/20/2024 wound check appt time @ 1:00pm Pravin Poole MD [address] [facility] [phone] Go on 08/31/2024 appt time @ 1:15pm [...] 3:10 PM EDT documented in this encounter [facility] 06-01-2024 History of Present illness Narrative Images from the original note were not included. PHYSICAL THERAPY [facility] Treatment Note Name/MRN: Mikel Winston ([id number]) Date of : 1945 Age: 78 y.o. [...] acute care. 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 PHYSICAL THERAPY [facility] Re-Evaluation Name/MRN: Mikel Winston ([id number]) Evaluation Date: 05/31/2024 Date of : 1945 Admission Date: 05/29/2024 6:28 PM Age: 78 y.o. Room/Bed: W4-423/W4-423 A Discharge Recommendation: Intermediate Facility Equipment Needed: No Assessment IMPRESSION: PT re-eval completed; pt transferred from [facility] for impending pacemaker placement. Min assist [...] List Diagnosis Date Noted Angina at rest ([facility]) 12/26/2017 Cellulitis of right lower extremity 01/28/2024 BARRY (acute kidney injury) ([facility]) 11/18/2022 UTI (urinary tract infection) 11/18/2022 Coronary artery disease involving coronary bypass graft of [place] heart without angina pectoris 09/30/2022 Nonrheumatic aortic valve stenosis 09/30/2022 Essential hypertension 09/30/2022 Dyslipidemia 09/30/2022 Generalized edema 01/27/2022 Diabetes ([facility]) 01/27/2022 Symptomatic sinus bradycardia 05/29/2024 Medical [...] Responsibilities: Independent Receives Help From: Family Active Hydrate Thickener Operator: No Prior Level of Function Prior Level [...] Raw Score (No Stairs) : 15 [facility] Score: Walked 25 ft or more (i.e. [...] of Care supervision is transferred to a [facility] Physical Therapist. Goals and/or treatment plan was established in collaboration with patient/family/other representatives. [facility] [place] [facility] Cardiology /Electrophysiology [...] 97.8 97.5 PLT 111* 85* Recent Labs 05/29/24 1856 05/29/24 2203 05/30/24 0111 TROPONINI 0.124* 0.149* 0.145* Recent Labs 05/29/24 1856 BNP 3,820* No results for input(s): TRIG, [...] original note were not included. OCCUPATIONAL THERAPY [facility] Name/MRN: Mikel Winston ([id number]) Date: 05/31/2024 Orders received for OT evaluation and treat. Per medical chart, pt scheduled for PPM today. Will hold therapy and continue to follow. Dino Coelho OT Nutrition rescreen completed. Chart reviewed. Patient to be monitored and followed by the diet service desk technician. Brief Progress Note: Mrs. Winston is a pleasant 78 YO female who presented to [facility] from [facility] after being seen by cardiology today for symptomatic bradycardia and was found to be in 2:1 Mobitz type II AV Block. She was transported to [facility] for EP evaluation and PPM placement. [...] original note were not included. PHYSICAL THERAPY [facility] Initial Evaluation Name/MRN: Mikel Winston ([id number]) Evaluation Date: 05/30/2024 Date of : 1945 Admission Date: 05/29/2024 6:28 PM Age: 78 y.o. Room/Bed: [facility] B Discharge Recommendation: Intermediate Facility, Continue to [...] List Diagnosis Date Noted Angina at rest ([facility]) 12/26/2017 Cellulitis of right lower extremity 01/28/2024 BARRY (acute kidney injury) ([facility]) 11/18/2022 UTI (urinary tract infection) 11/18/2022 Coronary artery disease involving coronary bypass graft of [place] heart without angina pectoris 09/30/2022 Nonrheumatic aortic valve stenosis 09/30/2022 Essential hypertension 09/30/2022 Dyslipidemia 09/30/2022 Generalized edema 01/27/2022 Diabetes ([facility]) 01/27/2022 Medical Precautions: No active isolations [...] Responsibilities: Independent Receives Help From: None Active Hydrate Thickener Operator: No Prior Level of Function Prior Level [...] of Care supervision is transferred to a [facility] Physical Therapist. Goals and/or treatment plan was established in collaboration with patient/family/other representatives. Images from the original note were not included. [facility] CARDIAC PROGRESSIVE CARE UNIT PCU [address] [place] [phone] Dept: [phone] Contacted the electrophysiology service at the [facility]. Our produce team lead reviewed the consult and does not expect the 2-1 AV block to improve with time. Will arrange for transfer to [facility] for planned pacemaker tomorrow. Hospitalist Progress Note 05/30/2024 [phone]: Please page me ([phone]) for patient care issues. [phone]: Please page [facility] Hospitalist for any issues. Subjective: Admit [...] the phone and they recommended transfer to [facility] for possible pacemaker. Discussed with patient and [...] last 72 hours. CARDIAC ENZYMES: Recent Labs 05/29/24 18505/29/24 2203 05/30/24 0111 TROPONINI 0.124* 0.149* 0.145* Procalcitonin: [...] Bradycardia= tele, cardiology consult reviewed, transferred to [facility] Mobitz type II block-stopped atenolol Elevated troponin, [...] was consulted and they recommended transfer to [facility], for possible pacemaker placement Reached out to [facility] and she will be admitted to Dr. [...] Emergency Contact: Costa Winston Mobile Relation: Child Advance Directive: Full Code Discharge planning: TBD Louise Garza MD Division of Hospitalist Medicine Inpatient Medical Services/[facility] Images from the original note were not included. [facility] ED [address] [facility] [address] Dept: [phone] I was asked about this patient's bradycardia. [...] all resolve. RBC documented in this encounter [facility] 06-01-2024 Note Formatting of this n ote might be different from the original. Care Management Progress Note PM placed yesterday. Per therapy evaluation. Recommendation is SNF. Patient declines SNF. Agreeable to HC RN. Referral in [facility] to [facility]. Length of Stay (Days): 3 GMLOS: 2.3 [facility] 06-01-2024 Note Formatting of this n ote might be different from the original. Care Management Progress Note PM placed yesterday. Per therapy evaluation. Recommendation is SNF. Patient declines SNF. Agreeable to HC RN. Referral in [facility] to [facility]. Length of Stay (Days): 3 GMLOS: 2.3 T [facility] 06-01-2024 Plan of care note The patient is Moderately Stable - Low risk of patient condition declining or worsening The patient's goals for the shift include comfort The clinical goals for the shift include no complications with new pacer and surgical site Goals met [facility] 05-31-2024 Note Procedure Details PROCEDURE: Implantation of a dual chamber permanent pacemaker. ASSISTANTS: None CATHETERS AND/OR DRAINS: Not applicable SPECIMENS: None APPROACH: Left Axillary Vein DEVICE IMPLANTED: Medtronic [id number] LEAD INFORMATION: RA: Medtronic 5076-52, SN: [id number], P-wave 2.0V, Impedance 608ohms, Threshold 1.5V@0.4ms RV: Medtronic [id number], SN: [id number], No intrinsic R-wave, Impedance 1007ohms, Threshold 0.5V@0.4ms [...] morphology. The sheath was split using the Content[employer] splitting tool. The right atrial lead was [...] with patient who consented to blood products. [employer] Phone: 05-31-2024 Note Formatting of this n ote might be different from the original. Sedation Plan ASA class 2 - patient with mild systemic disease Mallampati class: II - soft palate, uvula, fauces visible. Sedation plan: moderate (conscious sedation) Risks, benefits, and alternatives discussed with patient. Use of blood products discussed with patient who consented to blood products. [employer] Phone: 05-31-2024 Hospital Discharge instructions Kyung Hogan APRN - METAL [employer]ELTER - 05/31/2024 2:54 PM EDT Post Pacemaker [...] in CPR. Call the Device Clinic at [phone] if you have any questions regarding your incision, pacemaker, or follow-up appointments Marine Jorge LPN - 06/01/2024 11:40 AM EDT Images from the original note were not included. Continuity of Care Form Patient Name: Mikel Winston : 1945 Admit date: 05/29/2024 Discharge date: Code Status Order: Full Code Advance Directives: N Admitting Physician: Jose Morillo MD PCP: KOMAL COHN DO Discharging Nurse: Discharging Hospital Unit/Room#: W4-423/W4-423 A Discharging Unit Phone Number: Emergency Contact: Extended Emergency Contact Information Primary Emergency Contact: Arnel Forte Mobile Relation: Child Secondary Emergency Contact: Costa Winston Mobile Relation: Child Past Surgical History: Past Surgical History: Procedure Laterality Date APPENDECTOMY CARDIAC ELECTROPHYSIOLOGY PROCEDURE N/A 05/31/2024 Performed by Pravin Poole MD at [facility] Cardiac Cath/EP Lab CHOLECYSTECTOMY CORONARY ARTERY [...] artery disease involving coronary bypass graft of [place] heart without angina pectoris Nonrheumatic aortic valve [...] (213 lb) Mental Status: {FAM Patient Mental Status:37004} IV Access: {FAM IV Access:87206} Nursing Mobility/ADLs: Walking {CATY ADL:::Independent} Transfer {CATY ADL:::Independent} Bathing {CATY ADL:::Independent} Dressing {CATY ADL:::Independent} Toileting {CATY ADL:::Independent} Feeding {CATY ADL:::Independent} Fashion Consultant Sales {CATY ADL:::Independent} Med Delivery {yes/no:52187} Wound Care Documentation and Therapy: Wound/Incision 05/31/24 Chest Left (Active) Number of days: 0 Elimination: Continence: Bowel: {yes/no:94255} Bladder: {yes/no:51146} Urinary Catheter: {FAM Urinary Catheter:54225} Colostomy/Ileostomy/Ileal Conduit: {YES / NO:} Date of Last BM: No intake or output data in the 24 hours ending 06/01/24 1139 No intake/output data recorded. Safety Concerns: {FAM Safety Concerns:49286} Impairments/Disabilities: {FAM Impairments/Disabilities:79155} Nutrition Therapy: Current Nutrition Therapy: {FAM Diet List:21875} Routes of Feeding: {routes of feedin} Liquids: {liquid consistency:48750} Daily Fluid Restriction: {daily fluid restriction:27152} Last Modified Barium Swallow with Video (Video Swallowing Test): {done not done:98590} Treatments at the Time of Hospital Discharge: Respiratory Treatments: Oxygen Therapy: {Therapy; copd oxygen:00240} Ventilator: {FAM Ventilator:94430} Rehab Therapies: {GEN THERAPY DISCIPLINE SCAL:4448355} Weight Bearing Status/Restrictions: {POD WEIGHT BEARIN} Other Medical Equipment (for information only, NOT a DME order): {Assistive Devices DME:00468} Other Treatments: Patient's personal belongings (please select all that are sent with patient): {FAM Patient Belongings:82963} RN SIGNATURE: {E-signature:58655} CASE MANAGEMENT/SOCIAL WORK SECTION Inpatient Status Date: Discharging to Facility/ Agency Name: [facility] Address: [address] [place] [address] Dialysis Facility (if applicable) Name: Address: Dialysis Schedule: Phone: Fax: Automotive Repair Technician/Software Build Engineer signature: {E-signature:96696} PHYSICIAN SECTION Name: Mikel Winston Prognosis: {Rehab Prognosis:98821} Condition at Discharge: {Patient Condition:18302} Rehab Potential (if transferring to Rehab): {Rehab Prognosis:72242} Recommended Labs or Other Treatments After Discharge: The individual is being admitted to a nursing facility directly from an [facility] or a unit of a [facility] that is not operated by or licensed by [facility] under section 5119.14 or 5160-3-15.1 5 The individual requires the level of services provided by a nursing facility for the condition for which he or she was treated in the hospital and, Physician Certification: I certify the above information and transfer of Mikel Winston is necessary for the continuing treatment of the diagnosis listed and that she requires {FAM Level of Care:31848} for {greater less than:05056} 30 days. Update Admission H&P: {FAM Changes in H&P:03561} PHYSICIAN SIGNATURE: {E-signature:03112} documented in this encounter [facility] 05-31-2024 Plan of care note Problem: [...] integrity is maintained or improved Outcome: Progressing [facility] 05-31-2024 Note Formatting of this n ote might be different from the original. Care Management Progress Note Patient now on . Previous noted. NPO-Cardiology following for possible pacemaker. Per therapy evaluation. Recommendation is SNF. I will discuss this with patient today. Length of Stay (Days): 2 GMLOS: No GMLOS Documented [facility] 05-31-2024 Note Formatting of this n ote might be different from the original. Care Management Progress Note Patient now on 4 . Previous noted. NPO-Cardiology following for possible pacemaker. Per therapy evaluation. Recommendation is SNF. I will discuss this with patient today. Length of Stay (Days): 2 GMLOS: No GMLOS Documented [facility] 05-31-2024 Consult note Associated Order (s): IP CONSULT TO CARDIOLOGY [facility] [place] [facility] Cardiology /Electrophysiology Consult Note Reason for Consult/Chief Complaint: symptomatic bradycardia, Mobitz type 2 AV block Referring provider: Dr. Marie Established continuous improvement coach: Crystal History of Present Illness: Mikel Winston is a 78 y.o. female who follows Dr. 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 She reports for [...] Donaldson MD at 06/01/2024 4:23 PM EDT [facility] [employer] Work Phone: 05-31-2024 Consult note Associated Order (s): IP CONSULT TO CARDIOLOGY [facility] [place] [facility] Cardiology /Electrophysiology Consult Note Reason for Consult/Chief Complaint: symptomatic bradycardia, Mobitz type 2 AV block Referring provider: Dr. Marie Established continuous improvement coach: Crystal History of Present Illness: Mikel Winston is a 78 y.o. female who follows Dr. 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 She reports for [...] from the original note were not included. [facility] CARDIAC PROGRESSIVE CARE UNIT U [address] [place] [phone] Dept: [phone] This is a 78-year-old woman seen for [...] should probably transferred her to the [facility] in preparation of the pacemaker on Tuesday RBC documented in this encounter [facility] 05-31-2024 Plan of care note The patient is Moderately Stable - Low risk of patient condition declining or worsening The patient's goals for the shift include no chest pain The clinical goals for the shift include no symptomatic bradycardia Goals met over the shift [facility] 05-30-2024 Plan of care note The patient [...] Goal: Nutritional status is improving Outcome: Progressing [facility] 05-30-2024 Nurse Note Report called to [facility] . Pt and family aware of transport to facility. [facility] 05-30-2024 Note Formatting of this n ote might be different from the original. Drawing In Hand following case for Discharge Needs. Pt is currently not active with [facility] at Home, was discharged 05/09/2024. [facility] 05-30-2024 Note Formatting of this n ote might be different from the original. Drawing In Hand following case for Discharge Needs. Pt is currently not active with [facility] at Home, was discharged 05/09/2024. [facility] 05-30-2024 Note Formatting of this n ote might be different from the original. Care Managment Initial Assessment Date: 05/30/2024 Patient Name: Mikel Winston : 1945 Patient Information Source of Information: Patient Cognition/Language: WFL - Within Functional Limits Permission given to speak with patient healthcare sales representative/caregiver as indicated: Yes (DTR Arnel Jann or Bharti), ) Confirmation of Payer with patient/family: Yes Payer Name: [facility] : No Confirmation of [...] Daily Living Prescription Coverage: Yes Pharmacy Used: [facility] in [facility] Medication Management: Assistance Type: Dose [...] Additional Information: Chart reviewed. Patient admitted to [facility] for treatment of bradycardia. Noted to have possibly been taking too much beta partha at home. Atenolol currently on hold. Regular diet. Cardiology following -plan in place to hold atenolol and monitor. If AV block does not resolve may need pacemaker. If so, will need transferred to [facility] for this procedure. Met with patient [...] plan: Home with resumption of home care. [facility] did request pt/ot evaluations to Dr. Garza. Lilibeth Laurent RN T [facility] 05-30-2024 Note Formatting of this n ote might be different from the original. Care Managment Initial Assessment Date: 05/30/2024 Patient Name: Mikel Winston : 1945 Patient Information Source of Information: Patient Cognition/Language: WFL - Within Functional Limits Permission given to speak with patient healthcare sales representative/caregiver as indicated: Yes (ZELDA Forte or (Bharti), ) Confirmation of Payer with patient/family: Yes Payer Name: [facility] [place]: No Confirmation of Primary Care Physician: Confirmed [...] Daily Living Prescription Coverage: Yes Pharmacy Used: [facility] in [facility] Medication Management: Assistance Type: Dose [...] Additional Information: Chart reviewed. Patient admitted to [facility] for treatment of bradycardia. Noted to have possibly been taking too much beta partha at home. Atenolol currently on hold. Regular diet. Cardiology following -plan in place to hold atenolol and monitor. If AV block does not resolve may need pacemaker. If so, will need transferred to [facility] for this procedure. Met with patient [...] plan: Home with resumption of home care. [facility] did request pt/ot evaluations to Dr. Garza. Lilibeth Laurent RN T [facility] 05-30-2024 Consult note Associated Order (s): IP CONSULT TO CARDIOLOGY Images from the original note were not included. [facility] [address]U [address] [place] [id number] Dept: [phone] This is a 78-year-old woman seen for [...] should probably transferred her to the [facility] in preparation of the pacemaker on Tuesday RBC T [facility] 05-30-2024 Plan of care note The patient is Moderately Stable - Low risk of patient condition declining or worsening The patient's goals for the shift include to feel better/rest The clinical goals for the shift include stable heart rate T [facility] 05-29-2024 History and physical note History and Physical [facility] Mikel Davis Ravindra : 1945 AGE 78 y.o. YEARS Note Date 05/29/2024 Primary Care Physician:KOMAL COHN DO Current Providers as of 05/29/2024 PCP: oKmal Cohn DO Referring Provider: not found, starting on TueMay 29, 2024 12:00 AM Attending Provider: Kimi Polk DO, starting on TueMay 29, 2024 6:33 PM (Active) Registered Nurse: Yolanda Ag RN, starting on TueMay 29, 2024 6:28 PM (Active) Physician Music Journalist: Lakeisha Carter PA-C, starting on TueMay 29, [...] 05/29/2024 684 QTC Interval 05/29/2024 517 P [place] 05/29/2024 -26 QRS [place] 05/29/2024 -59 T Wave [place] 05/29/2024 142 CO Interval 05/29/2024 266 NT PRO BNP 05/29/2024 3,820 (H) SARS-CoV-2 05/29/2024 Not Detected Respiratory Syncytial Vi* 05/29/2024 Not Detected Influenza A 05/29/2024 Not Detected Influenza B 05/29/2024 Not Detected MAGNESIUM 05/29/2024 1.9 EKG Encounter Date: 05/29/24 ECG 12 lead (Now) Result Value Heart Rate 34 QRSD Interval 177 QT Interval 684 QTC Interval 517 P [place] -26 QRS [place] -59 T Wave [place] 142 CO Interval 266 Impression Sinus bradycardia Prolonged CO interval Right bundle branch block LVH with [...] pharmacologic and mechanical contraindicated 05/29/2024 Mikel Winston [id number] Any scheduled follow up appointments Future Appointments Date Time Provider Department Center 03/27/2025 1:00 PM Jose Rojas [facility] Contact Information Primary Emergency Contact: Arnel Forte Mobile Relation: Child Secondary Emergency Contact: Costa Winston Mobile Relation: Child Portions of this note may be electronically transcribed. Please forward a copy of this H&P to the primary care physician. [facility] [employer] Work Phone: 05-29-2024 History and physical note History and Physical [facility] Mikel Winston : 1945 AGE 78 [...] TueMay 29, 2024 6:28 PM (Active) Physician Music Journalist: Lakeisha Carter PA-C, starting on TueMay 29, [...] 05/29/2024 684 QTC Interval 05/29/2024 517 P [place] 05/29/2024 -26 QRS [place] 05/29/2024 -59 T Wave [place] 05/29/2024 142 CO Interval 05/29/2024 266 NT PRO BNP 05/29/2024 3,820 (H) SARS-CoV-2 05/29/2024 Not Detected Respiratory Syncytial Vi* 05/29/2024 Not Detected Influenza A 05/29/2024 Not Detected Influenza B 05/29/2024 Not Detected MAGNESIUM 05/29/2024 1.9 EKG Encounter Date: 05/29/24 ECG 12 lead (Now) Result Value Heart Rate 34 QRSD Interval 177 QT Interval 684 QTC Interval 517 P [place] -26 QRS [place] -59 T Wave [place] 142 CO Interval 266 Impression Sinus bradycardia Prolonged CO interval Right bundle branch block LVH with [...] pharmacologic and mechanical contraindicated 05/29/2024 Mikel Winston [id number] Any scheduled follow up appointments Future Appointments Date Time Provider Department Center 03/27/2025 1:00 PM Jose Rojas MD [facility] Contact Information Primary Emergency Contact: Alfie Fortea Mobile Relation: Child Secondary Emergency Contact: Costa Winston Mobile Relation: Child Portions of this note may be electronically transcribed. Please forward a copy of this H&P to the primary care physician. documented in this encounter [facility] 05-29-2024 Emergency department Note Emergency Department Encounter [facility] ED Patient: Mikel Winston : 1945 [...] by me: Sinus bradycardia, rate 34, prolonged CO interval, old inferior infarct Labs with elevated troponin, hemoglobin 10.1 similar to prior. BNP elevated at 3820. BUN/creatinine consistent with baseline. Consulted cardiology and they were comfortable with the patient being admitted at [place] as long as she was hemodynamically stable. Patient has not had any hypotension or tachypnea here. She appears clinically well aside from her bradycardia. Will admit to [facility]. Diagnostics interpreted by me: EKG; see my [...] 10 min Stress: Stress Concern Present (01/28/2024) [employer] [place] [employer] - Occupational Stress Questionnaire Feeling of Stress : To some extent Social Connections: Moderately Integrated (01/28/2024) Social Connection and Isolation Panel [NHANES] Frequency of Communication with Friends and Family: More than three times a week Frequency of Social Gatherings with Friends and Family: More than three times a week Attends [employer] Services: More than 4 times per year [...] Homeless in the Last Year: No SCREENINGS [place] Coma Scale Best Eye Response: Spontaneous Best [...] In compliance with this authorization, please visit www.fda.gov/media/109564/download or www.fda.gov/media/385473/download to access the applicable information sheets. MAGNESIUM [...] 324 mg (324 mg Oral Given 05/29/24 193) ED care was supervised by Dr. Polk [...] Lab workup results: Initial troponin 0.124, BNP 4418-4384 x 4 months ago. Creatinine 2.01 which [...] In compliance with this authorization, please visit www.fda.gov/media/605198/download or www.fda.gov/media/092766/download to access the applicable information sheets. MAGNESIUM [...] able to be admitted to medicine at [facility] as long as she is hemodynamically stable and is not near syncopal. Will reassess in the a.m. to determine need for transfer to [facility]. Patient be admitted to medicine with cardiology [...] 7:05 AM EDT documented in this encounter [facility] 05-29-2024 Physician Emergency department Note Emergency Department Encounter [facility] ED Patient: Mikel Winston : 1945 [...] by me: Sinus bradycardia, rate 34, prolonged CO interval, old inferior infarct Labs with elevated troponin, hemoglobin 10.1 similar to prior. BNP elevated at 3820. BUN/creatinine consistent with baseline. Consulted cardiology and they were comfortable with the patient being admitted at [place] as long as she was hemodynamically stable. Patient has not had any hypotension or tachypnea here. She appears clinically well aside from her bradycardia. Will admit to [facility]. Diagnostics interpreted by me: EKG; see my [...] [employer] Kimi Polk DO 06/01/24 0717 [facility] [employer] Phone: 05-29-2024 Physician Emergency department Note EMERGENCY [...] 10 min Stress: Stress Concern Present (01/28/2024) [employer] [place] [employer] - Occupational Stress Questionnaire Feeling of Stress : To some extent Social Connections: Moderately Integrated (01/28/2024) Social Connection and Isolation Panel [NHANES] Frequency of Communication with Friends and Family: More than three times a week Frequency of Social Gatherings with Friends and Family: More than three times a week Attends [employer] Services: More than 4 times per year [...] Response: Oriented Best Motor Response: Follows commands [place] Coma Scale Score: 15 PHYSICAL EXAM ED [...] In compliance with this authorization, please visit www.fda.gov/media/674764/download or www.fda.gov/media/536603/download to access the applicable information sheets. MAGNESIUM [...] contributing to patients presentation include: CAD/hypertension on beta-patrha Differential considerations included: Symptomatic bradycardia, heart block, ACS, COVID/flu/RSV Initial workup includes: CBC, BMP, BNP, magnesium, troponin, COVID/flu/RSV, ECG, chest x-ray Lab workup results: Initial troponin 0.124, BNP 5514-8423 x 4 months ago. Creatinine 2.01 which [...] In compliance with this authorization, please visit www.fda.gov/media/221605/download or www.fda.gov/media/810352/download to access the applicable information sheets. MAGNESIUM [...] able to be admitted to medicine at [facility] as long as she is hemodynamically stable and is not near syncopal. Will reassess in the a.m. to determine need for transfer to [facility]. Patient be admitted to medicine with cardiology [...] Polk DO at 06/01/2024 7:05 AM EDT [facility] [employer] 04-27-2024 Note HNO ID: [id number] Author: KOMAL COHN DO Service: ? Author Type: Physician Type: Progress Notes Filed: 05/06/2024 17:10 Note Text: [facility] Komal Cohn DO [address] [place] [address] Date of Evaluation: 04/27/2024 Patient Name: Mikel [...] by the patient and a relative. No english language learner tutor was used. Neck Pain Pertinent negatives include [...] Extraocular movements int (more content not included)... [facility] 04-27-2024 History of Present illness Narrative Images from the original note were not included. [facility] Lalit [address] [place] [address] Date of Evaluation: 04/27/2024 Patient Name: Mikel [...] by the patient and a relative. No english language learner tutor was used. Neck Pain Pertinent negatives include [...] ckd, without long-term current use of insulin ([facility]) - , ICD10: E11.22,N18.4 - Controlled [...] kidney disease) stage 4, GFR 15-29 ml/min ([facility]) - ICD9: 585.4, ICD10: N18.4 - [...] 2024 4:33 PM documented in this encounter [facility] 04-18-2024 Miscellaneous Notes Good news. Her aortic valve stenosis is not severe, moderate. Her LV systolic functions is still normal. As long as she is feeling okay we can simply follow this. documented in this encounter [facility] 04-18-2024 Progress note Formatting of t his note might be different from the original. Good news. Her aortic valve stenosis is not severe, moderate. Her LV systolic functions is still normal. As long as she is feeling okay we can simply follow this. [facility] 04-13-2024 Telephone encounter Note Patient called requesting the following refill Refill(s) Requested: Requested Prescriptions Pending Prescriptions Disp Refills levothyroxine (SYNTHROID) 50 mcg tablet [Pharmacy Med Name: LEVOTHYROXINE 50 MCG TABLET] 90 tablet 1 Sig: take 1 tablet by mouth every day ALLERGIES Allergen Reactions Codeine Hives, Rash Codeine Sulfate Unknown (home) [phone] (cell) Last Office Visit Date: 03/16/2024 Last [facility] Visit: Visit date not found Future Appointment: 04/13/2024 The patients preferred pharmacy has been captured for this encounter? yes Request is for script(s) to be escript to pharmacy. Grace Linda LPN [facility] 04-13-2024 Miscellaneous Notes Patient called requesting the following refill Refill(s) Requested: Requested Prescriptions Pending Prescriptions Disp Refills levothyroxine (SYNTHROID) 50 mcg tablet [Pharmacy Med Name: LEVOTHYROXINE 50 MCG TABLET] 90 tablet 1 Sig: take 1 tablet by mouth every day ALLERGIES Allergen Reactions Codeine Hives, Rash Codeine Sulfate Unknown (home) [phone] (cell) Last Office Visit Date: 03/16/2024 Last [facility] Visit: Visit date not found Future Appointment: 04/13/2024 The patients preferred pharmacy has been captured for this encounter? yes Request is for script(s) to be escript to pharmacy. Grace Linda LPN documented in this encounter [facility] 04-10-2024 Telephone encounter Note Spoke with the patient who advised she is not taking the Citalopram. States she is taking the Lasix PRN and also needs a refill on Januvia [facility] 04-10-2024 Miscellaneous Notes Spoke with the patient who advised she is not taking the Citalopram. States she is taking the Lasix PRN and also needs a refill on Januvia documented in this encounter [facility] 03-22-2024 Telephone encounter Note Order has been mailed Nanette Nelson [facility] 03-22-2024 Miscellaneous Notes Order has been mailed Nanette Nelson Please mail plaquard rx to patient. Thanks Please mail the order for the placard to the patient, thanks Pt's dumpster driver, Fernanda Keith called to request a handicap placcard. When signed, put in mail to the Pt. Sylvia Monroy documented in this encounter [facility] 03-22-2024 Telephone encounter Note Please mail plaquard rx to patient. Thanks [facility] 03-21-2024 Telephone encounter Note PC to patient. Reviewed PARESH recommendations. She verbalized understanding. [facility] 03-21-2024 Miscellaneous Notes PC to patient. Reviewed [...] panel. Thank you documented in this encounter [facility] 03-21-2024 Telephone encounter Note PC to patient. Reviewed results. Her leg swelling is down. Her weight 3 days ago was 190 lbs, today 195 lbs. No more SOB than usual. Saw PCP 03/16 for cellulitis on her leg, currently on bactrim and has ointment for legs. Will repeat labs on Tuesday. She verbalized understanding. [facility] 03-21-2024 Telephone encounter Note Please call her [...] for the basic metabolic panel. Thank you [facility] 03-19-2024 Telephone encounter Note Please mail the order for the placard to the patient, thanks [facility] 03-16-2024 Instructions Marilin Rosales LPN - 03/16/2024 3:47 PM EDT Can take benadryl OTC for itching documented in this encounter [facility] 03-16-2024 Note HNO ID: [id number] Author: KOMAL COHN DO Service: ? Author Type: Physician Type: Progress Notes Filed: 03/20/2024 21:06 Note Text: [facility] Medicine [place] Komal Cohn DO [address] [place] [address] Date of Evaluation: 03/16/2024 Patient Name: Mikel Winston : 1945 Chief Complaint: Patient presents with: Edema: Started swelling and seeping Right leg May - Left leg started on Nursing Intake: There are no exam notes on file for this visit. Subjective Ms. Winston is a 78 year old female who presents with the following complaint(s): The history is provided by the patient. No english language learner tutor was used. Edema This is a new [...] and ROS obtained (more content not included)... [facility] 03-16-2024 History of Present illness Narrative Images from the original note were not included. [facility] Medicine [facility], [address] [place] [address] Date of Evaluation: 03/16/2024 Patient Name: Mikel Winston : 1945 Chief Complaint: Patient presents with: Edema: Started swelling and seeping Right leg May - Left leg started on Tu Nursing Intake: There are no exam notes on file for this visit. Subjective Ms. Winston is a 78 year old female who presents with the following complaint(s): The history is provided by the patient. No english language learner tutor was used. Edema This is a new [...] 2024 8:27 AM documented in this encounter [facility] 03-15-2024 Telephone encounter Note [facility] 03-15-2024 Telephone encounter Note Pt's dumpster driver, Fernanda Keith called to request a handicap placcard. When signed, put in mail to the Pt. Sylvia Monroy [facility] 03-14-2024 History of Present illness Narrative Images from the original note were not included. [facility] CARDIOLOGY [address] [place] [address] [facility] [address] Dept: [phone] Dept Loc: [phone] DATE of SERVICE:03/14/24 TIME of SERVICE: 1:23 [...] Drug use: No Allergies: Allergies Allergen Reactions Trever Lamb Medications: Current Outpatient Medications: alpha tocopherol (Vitamin [...] cardiac ultrasound: Ordering a formal transthoracic echocardiogram [employer] present for focused cardiac ultrasound: Not applicable [...] basic metabolic panel to be done this Tuesday, March 19 and an echocardiogram. Therapeutically, I [...] on these tests. documented in this encounter [facility] 03-14-2024 Note HNO ID: [id number] Author: LATONYA ROSADO RN Service: ? Author [...] screening tool questions performed? No N/A Concerns: Laundry Routeman plan for next outreach: Will follow-up if needed Signature: Latonya Rosado RN March 14, 2024 [facility] 03-14-2024 History of Present illness Narrative AG [...] screening tool questions performed? No N/A Concerns: Laundry Routeman plan for next outreach: Will follow-up if needed Signature: Latonya Rosado RN March 14, 2024 documented in this encounter [facility] 03-14-2024 Note Patient Outreach (AG ACM) MIKEL WINSTON ([id number]) 1945 F Date Time Provider Department 03/14/24 LATONYA ROSADO [facility] During your visit today, we recorded the [...] screening tool questions performed? No N/A Concerns: Laundry Routeman plan for next outreach: Will follow-up if [...] failure, unspecified HF chroni*12/01/2022 Angina at rest ([facility]) [I20.89] 12/01/2022 Class 1 obesity with body mass index (BMI) of 3*12/01/2022 Systolic murmur [R01.1] 12/26/2022 Platelets decreased ([facility]) [D69.6] 12/26/2022 Depression [F32.A] 12/11/2023 Encounter Status:Closed by LATONYA ROSADO on 03/14/24 [facility] 02-29-2024 Note HNO ID: [id number] Author: LATONYA ROSADO RN Service: ? Author [...] screening tool questions performed? No N/A Concerns: Laundry Routeman plan for next outreach: Will follow-up 2 weeks Signature: Latonya Rosado RN February 29, 2024 [facility] 02-29-2024 History of Present illness Narrative AG TRANSITIONAL CARE MANAGEMENT (TCM) FOLLOW-UP NOTE Provider Action/FYI: Patient identified by name and date of : YES Spoke to: patient Diagnosis: N/A Summary: Patient's cellulitis getting better. Patient feeling well. Patient completed TCM visit 02/27/24. No needs for PCP at this time. Health leads screening tool questions performed? No N/A Concerns: Laundry Routeman plan for next outreach: Will follow-up 2 weeks Signature: Latonya Rosado RN February 29, 2024 documented in this encounter [facility] 02-29-2024 Note Patient Outreach (AG ACM) MIKEL WINSTON ([id number]) 1945 F Date Time Provider Department 02/29/24 LATONYA ROSADO [facility] During your visit today, we recorded the [...] screening tool questions performed? No N/A Concerns: Laundry Routeman plan for next outreach: Will follow-up 2 [...] Encounter Status:Closed by LATONYA ROSADO on 02/29/24 [facility] 02-27-2024 Note HNO ID: [id number] Author: KOMAL COHN, DO Service: ? Author Type: Physician Type: Progress Notes Filed: 03/05/2024 21:46 Note Text: Transitional Care Management TCM Eligibility Documentation Program: Transitional Care Management Status: Enrolled Effective Dates: 02/15/2024 - present Responsible Staff: Latonya Rosado production cell leader date: 02/13/2024 (Program start) Date of initial contact: 02/15/2024 Initial contact Target status: Successful; Contact made within 2 business days post-discharge Summary Discharged from: [facility] Admit Date: 01/28/24 Admitted for: cellulitis [...] Cohn DO, February 27, 2024 3:54 PM [facility] 02-27-2024 History of Present illness Narrative Transitional Care Management TCM Eligibility Documentation Program: Transitional Care Management Status: Enrolled Effective Dates: 02/15/2024 - present Responsible Staff: Latonya Rosado RN Discharge date: 02/13/2024 (Program start) Date of initial contact: 02/15/2024 Initial contact Target status: Successful; Contact made within 2 business days post-discharge Summary Discharged from: [facility] Admit Date: 01/28/24 Admitted for: cellulitis [...] 2024 3:54 PM documented in this encounter [facility] 02-15-2024 Note HNO ID: [id number] Author: LATONYA ROSADO RN Service: ? Author Type: Registered Nurse Type: Progress Notes Filed: 02/15/2024 11:45 Note Text: TRANSITIONAL CARE MANAGEMENT (TCM) COMMUNITY MONITORING PROGRAM - PONCE Provider Action/FYI: TCM appointment 02/27/24 Started on . Request for prescription sent to PCP. SUMMARY: Pt discharged from [facility] on 02/13/24. Admitted for: Cellulitis Patient seen Inpatient THUAN Visit? N/A. Patient seen ICARE Program? No. Contact made with patient: Yes Hi my name is Latonya Rosado RN and I am calling from the [facility] on behalf of your PCP, Komal [...] a medication review completed? Yes, [facility]. SOCIAL: We would like to make [...] like to speak with a social work software team leader to help give you support for any [...] telephone visit with your PCP. ACTION TAKEN: [facility] Primary Care Provider Visit Scheduled: Yes - [...] (or call on the way if possible). [facility] 02-15-2024 History of Present illness Narrative TRANSITIONAL CARE MANAGEMENT (TCM) COMMUNITY MONITORING PROGRAM - PONCE Provider Action/FYI: TCM appointment 02/27/24 Started on . Request for prescription sent to PCP. SUMMARY: Pt discharged from [facility] on 02/13/24. Admitted for: Cellulitis Patient seen Inpatient THUAN Visit? N/A. Patient seen ICARE Program? No. Contact made with patient: Yes Hi my name is Latonya Rosado RN and I am calling from the [facility] on behalf of your PCP, Komal Cohn, [...] a medication review completed? Yes, Meds from [facility]. SOCIAL: We would like to make [...] like to speak with a social work software team leader to help give you support for any [...] way if possible). documented in this encounter [facility] 02-15-2024 Note HNO ID: [id number] Author: GOGO BARBOSA RN Service: ? Author Type: Registered Nurse Type: Progress Notes Filed: 02/15/2024 09:23 Note Text: Discharged from [facility] on 02/13/2024 to home. PCC notified. Gogo Barbosa RN February 15, 2024 [facility] 02-15-2024 History of Present illness Narrative Discharged from [facility] on 02/13/2024 to home. PCC notified. Gogo Barbosa RN February 15, 2024 documented in this encounter [facility] 02-15-2024 Note Patient Outreach (AG ACM) MIKEL WINSTON ([id number]) 1945 F Date Time Provider Department 02/15/24 GOGO BARBOSA [facility] During your visit today, we recorded the following information about you: Gogo Barbosa RN 02/15/2024 9:23 AM Signed Discharged from [facility] on 02/13/2024 to home. PCC notified. Gogo Barbosa RN February 15, 2024 Allergies As of Date: 02/15/2024 Noted Allergy Reaction CODEINE 02/24/2016 4 - Hives 2 - Rash CODEINE SULFATE 06/13/2018 16 - Unknown Date Reviewed: 01/06/2024 Reviewed by: Arnel Govea LPN - Fully Assessed Reason for Visit: Transition Of Care [4074] Cmt: Discharged from [facility] to Home Prescriptions as of 02/15/2024 - [...] Encounter Status:Closed by GOGO BARBOSA on 02/15/24 [facility] 02-15-2024 Note Patient Outreach (AG ACM) MIKEL WINSTON ([id number]) 1945 F Date Time Provider Department 02/15/24 LATONYA ROSADO [facility] During your visit today, we recorded the following information about you: Latonya Rosado, JANES 02/15/2024 11:45 AM Signed TRANSITIONAL CARE MANAGEMENT (TCM) COMMUNITY MONITORING PROGRAM - PONCE Provider Action/FYI: TCM appointment 02/27/24 Started on . Request for prescription sent to PCP. SUMMARY: Pt discharged from [facility] on 02/13/24. Admitted for: Cellulitis Patient seen Inpatient THUAN Visit? N/A. Patient seen ICARE Program? No. Contact made with patient: Yes Hi my name is Latonya Rosado RN and I am calling from the [facility] on behalf of your PCP, Komal [...] a medication review completed? Yes, Meds from [facility]. SOCIAL: We would like to make [...] like to speak with a social work software team leader to help give you support for any [...] Fully Assessed Re (more content not included)... [facility] 02-08-2024 Note HNO ID: [id number] Author: SUE CLAUDIO RN Service: ? Author Type: Registered Nurse Type: Progress Notes Filed: 02/08/2024 10:51 Note Text: TRANSITION CARE MANAGEMENT (TCM) DISCHARGE TO POST ACUTE FACILITY POST ACUTE TRANSFER SUMMARY: -Pt discharged from [facility] on 02/02/24. -Post Acute Facility Admitted to SNF. Discharging to Facility/ Agency Name: [facility] Address:[address] [place] [address] [place] [address] -Admitted for: LLE Cellulitis Cystitis [facility] 02-08-2024 History of Present illness Narrative TRANSITION CARE MANAGEMENT (TCM) DISCHARGE TO POST ACUTE FACILITY POST ACUTE TRANSFER SUMMARY: -Pt discharged from [facility] on 02/02/24. -Post Acute Facility Admitted to SNF. Discharging to Facility/ Agency Name: [facility] Address[place] [facility] [place] [address] -Admitted for: LLE Cellulitis Cystitis documented in this encounter [facility] 02-08-2024 Note Patient Outreach (AG ACM) MIKEL WINSTON ([id number]) 1945 F Date Time Provider Department 02/08/24 SUE CLAUDIO [facility] During your visit today, we recorded the following information about you: Sue Claudio, JANES 02/08/2024 10:51 AM Signed TRANSITION CARE MANAGEMENT (TCM) DISCHARGE TO POST ACUTE FACILITY POST ACUTE TRANSFER SUMMARY: -Pt discharged from [facility] on 02/02/24. -Post Acute Facility Admitted to SNF. Discharging to Facility/ Agency Name: [facility] Address[place] [facility] [facility] [place] [address] -Admitted for: LLE Cellulitis Cystitis Allergies As of Date: 02/08/2024 Noted Allergy Reaction CODEINE 02/24/2016 4 - Hives 2 - Rash CODEINE SULFATE 06/13/2018 16 - Unknown Date Reviewed: 01/06/2024 Reviewed by: Arnel Govea LPN - Fully Assessed Reason for Visit: Transition Of Care [4074] Cmt: Marya D/C to SNF 02/02/24 Prescriptions [...] 12/01/2022 Systolic murmur [R01.1] 12/26/2022 Platelets decreased ([facility]) [D69.6] 12/26/2022 Depression [F32.A] 12/11/2023 Encounter Status:Closed by SUE CLAUDIO on 02/08/24 [facility] 02-02-2024 Nurse Note Report called to Mark at [facility]. [facility] 02-02-2024 Nurse Note Report called to Mark at [facility]. 01/29/24 2350, Pt having SOB expiratory wheezing,I gave her a PRN P.O LASIX,Dr Morillo notified,he put an order for breathing treatment an chest x-ray. documented in this encounter [facility] 06-27-2024 Miscellaneous Notes Patient Choice Patient Name: MIKEL WINSTON Date of : 1945 All Providers Sent Referral Name: [facility] Phone: [phone] Address: [address] [place] [address] S/W, Transport Transport set via Roundtrip Cot at 230p to [facility]. Facility notified via Careport of time. museum curator provided report number. I did visit patient in her room to notify. Message Left for daughter Arnel as well. Messaged [facility] QA LAB TECHNICIAN to send dc packet to [facility]. . Discharge med list transmitted to [facility] via Careport per TCC request. 7000 [facility] Facility is aware Images from the original note were not included. Care Management Progress Note Anticipate discharge to [facility] today.. . Discharge Milestones and Delays [...] patient that plan was to discharge to [facility] probably tomorrow. . 7000 was entered into [facility] per TCC request. Facility is aware. Tasked [facility] QA LAB TECHNICIAN to complete 7000. Updated [facility] via [facility] that per attending, anticipate dc tomorrow. Per [facility] auth is good through 02/05. . [...] can talk with RN, hospitalist, and hospital geotechnical field technician if needing more clarification on this. Epic chat sent to geotechnical field technician. No other SW needs noted. Discharge plan is SNF. HCL to sign off. Please re-consult if needed. [facility] is able to accept. Did request that they submit for insurance auth. . Referral placed to [facility] via Careport per TCC request. Await review and response regarding ability to accept. [facility] notified. Spoke with patient. She is in agreement with snf referral. Did provide with SNF list. Referral placed to [facility] per her request .. Images from [...] aerosols yesterday. Discharge plan is home with [facility] vs snf when medically stable. . Discharge Milestones and Delays Expected date/time: 02/01/2024 Expected discharge disposition: Home Health Services Discharge Milestones Place discharge order Complete med reconciliation Case mgmt discharge readiness Clinical Stability Diagnostic Workup Contact Lens Edge Buffer Recommendations Facility Choice Selection Test Results PT discharge readiness OT discharge readiness PARKING METER ATTENDANT discharge readiness Patient Education Complete Expected Discharge [...] Continuing to await therapy evals and recommendations. Drawing In Hand following case for Discharge Needs. Images from the original note were not included. Care Management Progress Note US of lower ext pending for this morning. Urine culture pending. Remains on iv antibiotics. Pt/ot ordered and pending. Discharge plan is pending therapy evals and recommendations, wound care and antibiotic needs. Tentative discharge plan is home with [facility] when medically stable.. Discharge Milestones and Delays Expected date/time: 01/31/2024 Expected discharge disposition: Home or Self Care Discharge Milestones Place discharge order Complete med reconciliation Case mgmt discharge readiness Clinical Stability Diagnostic Workup Contact Lens Edge Buffer Recommendations Facility Choice Selection Test Results PT discharge readiness OT discharge readiness PARKING METER ATTENDANT discharge readiness Patient Education Complete Expected Discharge [...] Limits Permission given to speak with patient healthcare sales representative/caregiver as indicated: Confirmation of Payer with patient/family: Yes Payer Name: [place] Medicare / [facility] : No Confirmation of [...] Jalen Pham RN documented in this encounter [facility] 02-02-2024 Note Formatting of this n ote might be different from the original. Patient Choice Patient Name: MIKEL WINSTON Date of : 1945 All Providers Sent Referral Name: [facility] Phone: [phone] Address: [address] [place] [address] [facility] 02-02-2024 Note Formatting of this n ote might be different from the original. Patient Choice Patient Name: MIKEL WINSTON Date of : 1945 All Providers Sent Referral Name: [facility] Phone: [phone] Address: [address] [place] [id number] [facility] 02-02-2024 Note Formatting of this n ote might be different from the original. S/W, Transport Transport set via Roundtrip Cot at 230p to [facility]. Facility notified via Careport of time. museum curator provided report number. I did visit patient in her room to notify. Message Left for daughter Arnel as well. [facility] 02-02-2024 Note Formatting of this n ote might be different from the original. S/W, Transport Transport set via Roundtrip Cot at 230p to [facility]. Facility notified via Careport of time. museum curator provided report number. I did visit patient in her room to notify. Message Left for daughter Arnel as well. [facility] 02-02-2024 History of Present illness Narrative Images from the original note were not included. OCCUPATIONAL THERAPY [facility] Treatment Note Name/MRN: Mikel Winston ([id number]) Date of : 1945 Age: 78 y.o. [facility] Visit #: 2 out of [...] original note were not included. PHYSICAL THERAPY [facility] Treatment Note Name/MRN: Mikel Winston ([id number]) Date of : 1945 Age: 78 y.o. Room[facility]Bed: [facility] Visit #: 2 out of 5 [...] Quality of gait: reciprocal stepping, shuffling, slow ebla Pt demos short, shuffling gait, decreased gait [...] 90* BMP: Recent Labs 01/30/24 0042 01/31/24 0502/01/24 0258 NA 138 136 135 K 3.7 [...] on ceftriaxone Right LE cellulitis- on zyvox Ljdj-fkb-sysrr gap metabolic acidosis BARRY on CKD stage [...] Terence Gonzalez MD Division of Hospitalist Medicine [facility] Progress Note Subjective/ 78 [...] Results from last 7 days Lab Units 02/01/248 01/31/24 0524 01/30/24 0042 SODIUM mmol/L 135 136 138 POTASSIUM mmol/L 3.8 3.2* 3.7 CHLORIDE mmol/L 104 105 111* CO2 mmol/L 22 23 21* BUN mg/dL 34* 26* 30* CREATININE mg/dL 1.69* 1.62* 1.58* GLUCOSE mg/dL 107* 141* 148* CALCIUM mg/dL 8.4 8.7 8.8 Results from last 7 days Lab Units 02/01/2425701/31/24 0524 01/30/24 0042 WBC AUTO 10*3/uL 6.4 [...] any questions or concerns. Le Dobson APRN, METAL MELTER [facility], [facility] [phone] Associated attestation - Liss Dominique MD - 02/01/2024 1:49 PM EDT I have reviewed the above assessment and plan with the FUND DEVELOPMENT MANAGER. I agree with above note. Cr appears to be plateauing. D/w Dr. Gonzalez. Low dose diuresis. Images from the original note were not included. OCCUPATIONAL THERAPY [facility] Treatment Note Name/MRN: Mikel Winston ([id number]) Date of : 1945 Age: 78 y.o. Room[facility]Bed: [facility] Visit #: 1 out of 8 [...] 23 Minutes (2 ADLs) Margaret Ross OT [facility] Progress Note Subjective/ 78 y.o. [...] any questions or concerns. Le Dobson APRN, METAL MELTER [facility], [employer] [phone] Images from the original note were not included. PHYSICAL THERAPY [facility] Treatment Note Name/MRN: Mikel Winston ([id number]) Date of : 1945 Age: 78 y.o. Room/Bed: B4458/B4458 B Visit #: 1 out of 5 [...] and agreeable to therapy session Per RN okcarolyn for therapy Pain: Pt denies any current [...] disease LABS: CBC: Recent Labs 01/29/24 0536 01/30/24 0042 01/31/24523 WBC 9.0 6.2 8.8 [...] on ceftriaxone Right LE cellulitis- on zyvox Ubgd-nxy-qlfms gap metabolic acidosis BARRY on CKD stage [...] Terence Gonzalez MD Division of Hospitalist Medicine [facility] Images from the original note were not included. PHYSICAL THERAPY [facility] Initial Evaluation Name/MRN: Mikel Winston ([id number]) Evaluation Date: 01/30/2024 Date of : 1945 Admission Date: 01/28/2024 4:25 PM Age: 78 y.o. Room[facility]Bed: [facility] Discharge Recommendation: Intermediate Facility Equipment Needed: [...] List Diagnosis Date Noted Angina at rest ([facility]) 12/26/2017 Cellulitis of right lower extremity 01/28/2024 BARRY (acute kidney injury) (HCC) 11/18/2022 UTI (urinary tract infection) 11/18/2022 Coronary artery disease involving coronary bypass graft of [place] heart without angina pectoris 09/30/2022 Nonrheumatic aortic [...] Responsibilities: Independent Receives Help From: None Active Hydrate Thickener Operator: No Prior Level of Function ADL Assistance: [...] of Care supervision is transferred to a [facility] Physical Therapist. Goals and/or treatment plan was established in collaboration with patient/family/other representatives. Images from the original note were not included. OCCUPATIONAL THERAPY [facility] Initial Evaluation Name/MRN: Mikel Winston ([id number]) Evaluation Date: 01/30/2024 Date of : 1945 Admission Date: 01/28/2024 4:25 PM Age: 78 y.o. Room[facility]Bed: [facility] B Discharge Recommendation: Intermediate Facility Equipment Needed: [...] lower extremity 01/28/2024 BARRY (acute kidney injury) ([facility]) 11/18/2022 UTI (urinary tract infection) 11/18/2022 Coronary artery disease involving coronary bypass graft of [place] heart without angina pectoris 09/30/2022 Nonrheumatic aortic valve stenosis 09/30/2022 Essential hypertension 09/30/2022 Dyslipidemia 09/30/2022 Generalized edema 01/27/2022 Diabetes ([facility]) 01/27/2022 Medical Precautions: No active isolations [...] Responsibilities: Independent Receives Help From: None Active Hydrate Thickener Operator: No Prior Level of Function ADL Assistance: [...] of Care supervision is transferred to a [facility] Occupational Therapist. Goals and/or treatment plan was established in collaboration with patient/family/other representatives. Hospitalist Progress Note 01/30/2024 [phone]: Please page me ([phone]) for patient care issues. [phone]: Please page [facility] Hospitalist for any issues. Subjective: Admit Date: 01/28/2024 PCP: KOMAL COHN DO Room#: B4-994/B4-173 B Interval History: patient admitted for Acute [...] Right LE cellulitis Vancomycin, pharmacy to dose Vktp-grk-ktmxy gap metabolic acidosis BARRY on CKD stage [...] DO Division of Hospitalist Medicine Inpatient Medical Services/[facility] PAGER: [facility] Subjective/ 78 y.o. [...] with any questions or concerns. Le Dobson, WAITER/WAITRESS FORMAL, METAL MELTER [facility], [facility] [phone] Associated attestation - Liss Dominique MD - 01/30/2024 4:35 PM EDT I have reviewed the above assessment and plan with the FUND DEVELOPMENT MANAGER. I agree with above note. BARRY improving. Renal USG negative Nutrition rescreen complete. Pt assigned a level one for nutrition care. Hospitalist Progress Note 01/29/2024 [phone]: Please page me ([phone]) for patient care issues. [phone]: Please page [facility] Hospitalist for any issues. Subjective: Admit Date: 01/28/2024 PCP: KOMAL COHN DO Room#: B4-154/B4-949 B Interval History: patient admitted for Acute [...] Labs 01/28/24 17001/28/242236 TROPONINI 0.015 0.018 Procalcitonin: No results found [...] Right LE cellulitis Vancomycin, pharmacy to dose Ptwn-nvd-wjnej gap metabolic acidosis BARRY on CKD stage [...] DO Division of Hospitalist Medicine Inpatient Medical Services/[facility] PAGER: Epic chat Images from the original note were not included. PHYSICAL THERAPY [facility] Name/MRN: Mikel Winston ([id number]) Date: 01/29/2024 Chart reviewed. Pt with pending Duplex. Will await result and attempt as appropiate Siddharth Irving PT Images from the original note were not included. Speech-Language Pathology SPEECH LANGUAGE PATHOLOGY [facility] Bedside Swallow Evaluation Patient Name: Mikel Winston Evaluation Date: 01/29/2024 Date of : 1945 Admission Date: 01/28/2024 4:25 PM Age: 78 y.o. Room[facility]: [facility] IMPRESSION: No s/s oropharyngeal dysphagia. No overt clinical s/s pulmonary compromise with PO. Risk factors for aspiration include some missing teeth. RECOMMENDATION: Recommend Regular solids and Thin liquids and meds as tolerated and the following precautions: - Upright positioning for all PO intake - Slow rate of intake - Small bites/sips No skilled acute PARKING METER ATTENDANT indicated at this time. Please reconsult should changes occur. Subjective Patient alert and cooperative. Seen upright in bed. Answers all basic questions with clear vocal quality. Follows all basic commands. No visitors at bedside. Spoke with JANES Lagunas who cleared pt to be evaluated. Dysphagia History: No history of PARKING METER ATTENDANT services in EMR with retrospective chart review [...] List Diagnosis Date Noted Angina at rest ([facility]) 12/26/2017 Cellulitis of right lower extremity 01/28/2024 BARRY (acute kidney injury) ([facility]) 11/18/2022 UTI (urinary tract infection) 11/18/2022 Coronary artery disease involving coronary bypass graft of [place] heart without angina pectoris 09/30/2022 Nonrheumatic aortic valve stenosis 09/30/2022 Essential hypertension 09/30/2022 Dyslipidemia 09/30/2022 Generalized edema 01/27/2022 Diabetes ([facility]) 01/27/2022 History of Present Illness: Mikel [...] Stated Goal: To go home. Therapy Time PARKING METER ATTENDANT Individual Minutes Time In: 08 Time Out: 08 Minutes: 11 GUILLERMO Mei Images from the original note were not included. OCCUPATIONAL THERAPY [facility] Name/MRN: Mikel Winston ([id number]) Date: 01/29/2024 Therapy eval and treat orders [...] creatinine, and vancomycin levels interfaced automatically to 24h00 and data has been analyzed and interpreted. [...] via Secure Chat documented in this encounter [facility] 02-02-2024 Note Formatting of this n ote might be different from the original. Messaged [facility] to send dc packet to [facility]. . [facility] 02-02-2024 Note Formatting of this n ote might be different from the original. Messaged [facility] to send dc packet to [facility]. . [facility] 02-02-2024 Note Formatting of this n ote might be different from the original. Discharge med list transmitted to [facility] via Careport per TCC request. 7000 previously [facility] Facility is aware [facility] 02-02-2024 Note Formatting of this n ote might be different from the original. Discharge med list transmitted to [facility] via Careport per TCC request. 7000 previously completed [facility]. Facility is aware [facility] 02-02-2024 Hospital course Narrative Discharge [...] zyvox and ceftriaxone to complete the course. Xmvv-hoa-sljzo gap metabolic acidosis- improved Acute renal insuffiencey [...] Your Medications These medications were sent to [facility] [address] [place] [id number] Hours: Tuesday to Tuesday 10 am to 6 pm amoxicillin-clavulanate 875-125 MG tablet linezolid 600 MG tablet SITagliptin 25 MG tablet DIET: Adult diet Regular; 3 carb choices (45 gm/meal) ACTIVITY: No restriction. COMPLEXITY OF FOLLOW UP: [x] Moderate Complexity: follow up within 7-14 calendar days (22467) [] Severe Complexity: follow up within 7 calendar days (49698) FOLLOW UP TESTING, PENDING RESULTS OR REFERRALS AT TRANSITIONAL CARE VISIT: [x] Yes [] No PENDING STUDIES: DISPOSITION: Skilled Facility FACILITY/HOME CARE AGENCY NAME: Follow up with Liss Dominique MD [address] [place] [address] [address] [facility] [id number] Follow up in 1 week(s) on INSTRUCTIONS [...] 02/02/2024, 10:40 AM documented in this encounter [facility] 02-02-2024 Note Formatting of this n ote is different from the original. Images from the original note were not included. Care Management Progress Note Anticipate discharge to [facility] today.. . Discharge Milestones and Delays [...] Length of Stay (Days): 5 GMLOS: 3.9 [facility] 02-02-2024 Note Formatting of this n ote is different from the original. Images from the original note were not included. Care Management Progress Note Anticipate discharge to [facility] today.. . Discharge Milestones and Delays [...] GARCIA Hallman CNP 01/28/2024 7:46 PM 01/31/2024 Alia Russo APRN - JATIN 01/28/2024 7:06 PM Length of Stay (Days): 5 GMLOS: 3.9 [facility] 02-01-2024 Note Formatting of this n ote might be different from the original. Did update patient that plan was to discharge to [facility] probably tomorrow. . [facility] 02-01-2024 Note Formatting of this n ote might be different from the original. Did update patient that plan was to discharge to [facility] probably tomorrow. . [facility] 02-01-2024 Note Formatting of this n ote might be different from the original. 7000 was entered into [facility]. Facility is aware. T [facility] 02-01-2024 Note Formatting of this n ote might be different from the original. 7000 was entered into SeeWhy for the [facility] per TCC request. Facility is aware. T [facility] 02-01-2024 Note Formatting of this n ote might be different from the original. Tasked QUALITY ASSURANCE QA LAB TECHNICIAN to complete 7000. Updated [facility] via careport that per attending, anticipate dc tomorrow. Per [facility] auth is good through 02/05. . [facility] 02-01-2024 Note Formatting of this n ote might be different from the original. Tasked QUALITY ASSURANCE QA LAB TECHNICIAN to complete 7000. Updated [facility] via careport that per attending, anticipate dc tomorrow. Per [facility] auth is good through 02/05. . [facility] 02-01-2024 Hospital Discharge instructions Keyana Trimble LPN [...] artery disease involving coronary bypass graft of [place] heart without angina pectoris Nonrheumatic aortic valve [...] Minimal assistance Toileting Minimal assistance Feeding Independent Fashion Consultant Sales Minimal assistance Med Delivery yes Wound Care [...] Status Date: Discharging to Facility/ Agency Name: [facility] Address:[address] [place] [address] [place] [address] Dialysis Facility (if applicable) Name: Address: Dialysis Schedule: Phone: Fax: Automotive Repair Technician/Software Build Engineer signature: ICIAN SECTION Name: Mikel Winston Prognosis: fair Condition at Discharge: stable Rehab Potential (if transferring to Rehab): fair Recommended Labs or Other Treatments After Discharge: CBC/BMP in 3 days Follow up with nephrology in 1 week. Wean oxygen as tolerated. Monitor BP closely Anaia started for DM, can uptitrate as needed. The individual is being admitted to a nursing facility directly from an [facility] or a unit of a [facility] that is not operated by or licensed by [facility] under section 5119.14 or 5160-3-15.1 5 The individual requires the level of services provided by a nursing facility for the condition for which he or she was treated in the hospital and, Physician Certification: I certify the above information and transfer of Mikel Winston is necessary for the continuing treatment of the diagnosis listed and that she requires alf facility for less than 30 days. Update Admission H&P: No change in H&P PHYSICIAN SIGNATURE: documented in this encounter [facility] 01-31-2024 Note Formatting of this n [...] can talk with RN, hospitalist, and hospital geotechnical field technician if needing more clarification on this. Epic chat sent to geotechnical field technician. No other SW needs noted. [facility] 01-31-2024 Note Formatting of this n [...] can talk with RN, hospitalist, and hospital geotechnical field technician if needing more clarification on this. Epic chat sent to geotechnical field technician. No other SW needs noted. [facility] 01-31-2024 Note Formatting of this n ote might be different from the original. Discharge plan is SNF. HCL to sign off. Please re-consult if needed. T [facility] 01-31-2024 Note Formatting of this n ote might be different from the original. Discharge plan is SNF. HCL to sign off. Please re-consult if needed. [facility] 01-31-2024 Note Formatting of this n ote might be different from the original. [facility] is able to accept. Did request that they submit for insurance auth. . [facility] 01-31-2024 Note Formatting of this n ote might be different from the original. [facility] is able to accept. Did request that they submit for insurance auth. . [facility] 01-31-2024 Note Formatting of this n ote might be different from the original. Referral placed to [facility] per [facility] request. Await review and response regarding ability to accept. TCC notified. [facility] 01-31-2024 Note Formatting of this n ote might be different from the original. Referral placed to [facility] via [facility] per TCC request. Await review and response regarding ability to accept. TCC notified. [facility] 01-31-2024 Note Formatting of this n ote might be different from the original. Spoke with patient. She is in agreement with snf referral. Did provide with SNF list. Referral placed to [facility] per her request .. [facility] 01-31-2024 Note Formatting of this n ote might be different from the original. Spoke with patient. She is in agreement with snf referral. Did provide with SNF list. Referral placed to [facility] per her request .. [facility] 01-31-2024 Consult note Associated Order (s): PHARMACY TO DOSE VANCO Vancomycin therapy has been discontinued by Dr. Gonzalez on 01/30. Thank you for the consult. Pharmacy signing off for vancomycin dosing. Ginny Gramajo RPh, Date: 01/31/24 Time: 10:32 AM [facility] 01-31-2024 Consult note Associated Order (s): PHARMACY TO DOSE VANCO Vancomycin therapy has been discontinued by Dr. Gonzalez on 01/30. Thank you for the consult. Pharmacy signing off for vancomycin dosing. Ginny Gramajo RPh, Date: 01/31/24 Time: 10:32 AM Associated Order(s): IP CONSULT TO NEPHROLOGY [facility] [...] 10 min Stress: Stress Concern Present (01/28/2024) [place] [place] [employer] - Occupational Stress Questionnaire Feeling of Stress : To some extent Social Connections: Moderately Integrated (01/28/2024) Social Connection and Isolation Panel [NHANES] Frequency of Communication with Friends and Family: More than three times a week Frequency of Social Gatherings with Friends and Family: More than three times a week Attends [facility] Services: More than 4 times per year [...] any questions or concerns. Le Dobson APRN, METAL MELTER [facility] [employer], [facility] [phone] office Images from the original note were [...] creatinine, and vancomycin levels interfaced automatically to 24h00 and data has been analyzed and interpreted. [...] via Secure Chat documented in this encounter [facility] 01-31-2024 Note Formatting of this n [...] aerosols yesterday. Discharge plan is home with [facility] vs snf when medically stable. . Discharge Milestones and Delays Expected date/time: 02/01/2024 Expected discharge disposition: Home Health Services Discharge Milestones Place discharge order Complete med reconciliation Case mgmt discharge readiness Clinical Stability Diagnostic Workup Contact Lens Edge Buffer Recommendations Facility Choice Selection Test Results PT discharge readiness OT discharge readiness PARKING METER ATTENDANT discharge readiness Patient Education Complete Expected Discharge History Expected Date/Time Set By Reviewed At 02/01/2024 Jade Russell RN 01/30/2024 9:00 AM tcc est 01/31/2024 GARCIA Hallman CNP 01/28/2024 7:46 PM 01/31/2024 GARCIA Hallman CNP 01/28/2024 7:06 PM Length of Stay (Days): 3 GMLOS: 3.9 [facility] 01-31-2024 Note Formatting of this n [...] aerosols yesterday. Discharge plan is home with [facility] vs snf when medically stable. . Discharge Milestones and Delays Expected date/time: 02/01/2024 Expected discharge disposition: Home Health Services Discharge Milestones Place discharge order Complete med reconciliation Case mgmt discharge readiness Clinical Stability Diagnostic Workup Contact Lens Edge Buffer Recommendations Facility Choice Selection Test Results PT discharge readiness OT discharge readiness PARKING METER ATTENDANT discharge readiness Patient Education Complete Expected Discharge History Expected Date/Time Set By Reviewed At 02/01/2024 Jade Russell RN 01/30/2024 9:00 AM tcc est 01/31/2024 GARCIA Hallman CNP 01/28/2024 7:46 PM 01/31/2024 GARCIA Hallman CNP 01/28/2024 7:06 PM Length of Stay (Days): 3 GMLOS: 3.9 [facility] 01-31-2024 Plan of care note The patient is Unstable - High likelihood or risk of patient condition declining or worsening The patient's goals for the shift include rest The clinical goals for the shift include safety,breath easy. Over the shift, the patient did not make progress toward the following goals. Barriers to progression include disease progress. Recommendations to continue with current care. [facility] 01-30-2024 Note Formatting of this n ote might be different from the original. Continuing to await therapy evals and recommendations. [facility] 01-30-2024 Note Formatting of this n ote might be different from the original. Continuing to await therapy evals and recommendations. T [facility] 01-30-2024 Note Formatting of this n ote might be different from the original. Drawing In Hand following case for Discharge Needs. [facility] 01-30-2024 Note Formatting of this n ote might be different from the original. Drawing In Hand following case for Discharge Needs. T [facility] 01-30-2024 Note Formatting of this n ote is different from the original. Images from the original note were not included. Care Management Progress Note US of lower ext pending for this morning. Urine culture pending. Remains on iv antibiotics. Pt/ot ordered and pending. Discharge plan is pending therapy evals and recommendations, wound care and antibiotic needs. Tentative discharge plan is home [facility] when medically stable.. Discharge Milestones and Delays Expected date/time: 01/31/2024 Expected discharge disposition: Home or Self Care Discharge Milestones Place discharge order Complete med reconciliation Case mgmt discharge readiness Clinical Stability Diagnostic Workup Contact Lens Edge Buffer Recommendations Facility Choice Selection Test Results PT discharge readiness OT discharge readiness PARKING METER ATTENDANT discharge readiness Patient Education Complete Expected Discharge History Expected Date/Time Set By Reviewed At 01/31/2024 GARCIA Hallman CNP 01/28/2024 7:46 PM 01/31/2024 GARCIA Hallman CNP 01/28/2024 7:06 PM Length of Stay (Days): 2 GMLOS: No GMLOS Documented T [facility] 01-30-2024 Note Formatting of this n ote is different from the original. Images from the original note were not included. Care Management Progress Note US of lower ext pending for this morning. Urine culture pending. Remains on iv antibiotics. Pt/ot ordered and pending. Discharge plan is pending therapy evals and recommendations, wound care and antibiotic needs. Tentative discharge plan is home with [facility] when medically stable.. Discharge Milestones and Delays Expected date/time: 01/31/2024 Expected discharge disposition: Home or Self Care Discharge Milestones Place discharge order Complete med reconciliation Case mgmt discharge readiness Clinical Stability Diagnostic Workup Contact Lens Edge Buffer Recommendations Facility Choice Selection Test Results PT discharge readiness OT discharge readiness PARKING METER ATTENDANT discharge readiness Patient Education Complete Expected Discharge History Expected Date/Time Set By Reviewed At 01/31/2024 GARCIA Hallman CNP 01/28/2024 7:46 PM 01/31/2024 GARCIA Hallman CNP 01/28/2024 7:06 PM Length of Stay (Days): 2 GMLOS: No GMLOS Documented [facility] 01-30-2024 Plan of care note The patient is Moderately Unstable - Medium risk of patient condition declining or worsening The patient's goals for the shift include rest The clinical goals for the shift include safety Over the shift, the patient did demonstrate knowledge on the diagnosis and the treatment.She remains free from falls. [facility] 01-30-2024 Plan of care note The patient is Moderately Unstable - Medium risk of patient condition declining or worsening The patient's goals for the shift include rest The clinical goals for the shift include safety Over the shift, the patient did demonstrated knowledge on care and prognosis. [facility] 01-30-2024 Nurse Note 01/29/24 2350, Pt having SOB expiratory wheezing,I gave her a PRN P.O LASIX,Dr Morillo notified,he put an order for breathing treatment an chest x-ray. T [facility] 01-29-2024 Note Formatting of this n ote might be different from the original. Care Managment Initial Assessment Date: 01/29/2024 Patient Name: Mikel Winston : 1945 Patient Information Source of Information: Patient Cognition/Language: WFL - Within Functional Limits Permission given to speak with patient healthcare sales representative/caregiver as indicated: Confirmation of Payer with patient/family: Yes Payer Name: [employer] Medicare / [facility] [place]: No Confirmation of Primary Care Physician: Confirmed [...] continue to follow. Jalen Pham RN T [facility] 01-29-2024 Note Formatting of this n ote might be different from the original. Care Managment Initial Assessment Date: 01/29/2024 Patient Name: Mikel Winston : 1945 Patient Information Source of Information: Patient Cognition/Language: WFL - Within Functional Limits Permission given to speak with patient healthcare sales representative/caregiver as indicated: Confirmation of Payer with patient/family: Yes Payer Name: [place] Medicare / [facility] : No Confirmation of [...] will continue to follow. Jalen Pham RN [facility] 01-29-2024 Consult note Associated Order (s): IP [...] 10 min Stress: Stress Concern Present (01/28/2024) [place] [place] [employer] - Occupational Stress Questionnaire Feeling of Stress : To some extent Social Connections: Moderately Integrated (01/28/2024) Social Connection and Isolation Panel [NHANES] Frequency of Communication with Friends and Family: More than three times a week Frequency of Social Gatherings with Friends and Family: More than three times a week Attends [facility] Services: More than 4 times per year [...] 30* CREATININE 1.70* 1.68* BNP: Recent Labs 01/28/241708 BNP 1,480* ABGs: No results found for: [...] any questions or concerns. Le Dobson APRN, METAL MELTER [facility], [facility] [phone] office [facility] 01-28-2024 Consult note Formatting of th is [...] creatinine, and vancomycin levels interfaced automatically to 24h00 and data has been analyzed and interpreted. [...] Radha Limon RPh Available via Secure Chat [facility] 01-28-2024 History and physical note Images from [...] Needs: Unmet Transportation Needs (03/08/2022) Received from [facility] - Transportation Lack of Transportation (Medical): [...] - DO NOT do CPR, intubation] [_] [DNR-COLLECTION SUPPORT SPECIALIST - Comfort care only] [_] DNR form [...] Sukhi Maurer MD Division of Hospitalist Medicine [facility] [employer] Phone: 01-28-2024 History and physical note Images [...] Needs: Unmet Transportation Needs (03/08/2022) Received from [facility] [employer] [facility] PRAPARE - Transportation Lack of [...] - DO NOT do CPR, intubation] [_] [DNR-COLLECTION SUPPORT SPECIALIST - Comfort care only] [_] DNR form [...] Sukhi Maurer MD Division of Hospitalist Medicine [facility] documented in this encounter [facility] 01-28-2024 Emergency department Note Guided family back MELIDA Owusu 01/28/24 1648 [facility] 01-28-2024 Emergency department Note Guided family back MELIDA Owusu 01/28/24 1648 Introduced myself as pt liaison explained role and provided support to son Guy and his Lizzette in [facility], pt arrived via EMS. MELIDA Owusu [...] Needs: Unmet Transportation Needs (03/08/2022) Received from [facility] [employer] [facility] [employer] [facility] PRAPARE - Transportation Lack of Transportation [...] Plus (1,000 mg IntraVENous New Bag 01/28/24 9047) PROCEDURES: Unless otherwise noted below, none Procedures [...] Provider Mindi Angulo MD Resident 01/28/24 1836 Emergency Department Encounter [facility] ED Patient: Mikel Winston : 1945 [...] [employer] Surjit Sanchez MD 01/29/24 0122 documented in this encounter [facility] 01-28-2024 Emergency department Note Introduced myself as pt liaison explained role and provided support to son Guy and his Lizzette in [facility], pt arrived via EMS. MELIDA Owusu 01/28/24 1631 [facility] 01-28-2024 Physician Emergency department Note EMERGENCY DEPARTMENT [...] Needs: Unmet Transportation Needs (03/08/2022) Received from [facility] Тать[employer] AGUERO - Transportation Lack of Transportation (Medical): Yes [...] Plus (1,000 mg IntraVENous New Bag 01/28/24 3665) PROCEDURES: Unless otherwise noted below, none Procedures [...] Medicine Provider Mindi Angulo MD Resident 01/28/24 2307 [facility] 01-28-2024 Physician Emergency department Note Emergency Department Encounter [facility] ED Patient: Mikel Winston : 1945 [...] for clarification.) Surjit Sanchez MD Acute Care [facility] Surjit Sanchez MD 01/29/24 0122 [employer] Phone: 01-09-2024 Evaluation note Diagnosis Type 2 [...] Stage IV (severe) documented in this encounter [facility]05-31-2024 Telephone encounter Note* Telephone Encounter - Sylvia Monroy - 01/06/2024 2:50 PM EDT Consult to nephrology CKD chronic kidney disease stage 4 GFR 15-29 ml/min Confirm [id number] Sylvia Monroy [facility]05-31-2024 Miscellaneous Notes* Telephone Encounter - Sylvia Monroy - 01/06/2024 2:50 PM EDT Consult to nephrology CKD chronic kidney disease stage 4 GFR 15-29 ml/min Confirm [id number] Sylvia Monroy [facility] encounter Note * Telephone Encounter - Sylvia Monroy - 01/06/2024 2:48 PM EDT Consult to ophthalmology Screening for diabetic retinopathy Confirm [id number] Sylvia Monroy [facility]05-31-2024 Miscellaneous Notes* Telephone Encounter - Sylvia Monroy - 01/06/2024 2:48 PM EDT Consult to ophthalmology Screening for diabetic retinopathy Confirm [id number] Sylvia Monroy [facility] NoteHNO ID: [id number] Author: ?, ?, ? Service: ? Author Type: ? Type: Progress Notes Filed: 05/29/2024 16:07 Note Text: [facility] Brandi Hogueland Lalit DO [address] [place] [address] Date of Evaluation: 01/06/2024 Patient Name: Mikel Winston : 1945 Chief Complaint: Patient presents with: Follow Up: 4 week follow up for UTI Diabetes Wound Check: Right lower leg dry skin patient wants talk about Lasix Nursing Intake: There are no exam notes on file for this visit. Subjective Ms. Ravindra is a 78 year old female who presents with the following complaint(s): The history is provided by the patient. No english language learner tutor was used. Diabetes She presents for her [...] Reported on 03/07/2023) M (more content not included)...[facility]05-31-2024 History of Present illness Narrative* Melanie Ellsworth - 01/06/2024 1:23 PM EDT Images from the original note were not included. [facility] Medicine Brandi Cohn DO [address] [place] [address] Date of Evaluation: 01/06/2024 Patient Name: Mikel [...] history is provided by the patient. No english language learner tutor was used. Diabetes She presents for her [...] (HCC) - ICD9: 585.4, ICD10: N18.4 - eGFR: [...] DO, January 0541:41 PM [facility] Telephone encounter Note * Telephone Encounter - Grace Linda LPN - 12/20/2023 4:13 PM EDT Spoke to Clinton. Related all the information from Dr. Cohn. Clinton states that his sister generally handles all this for Mikel, but she has been working more recently, so Clinton may have to handle this. 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 No order for referral - sent message back to For the referral. [facility]05-14-2024 Telephone encounter Note* Telephone Encounter - Grace Linda LPN - 12/20/2023 4:13 PM EDT Need to have order for Neph referral [facility]05-14-2024 Miscellaneous Notes* Telephone Encounter - Grace Linda LPN - 12/20/2023 4:13 PM EDT Spoke to Clinton. Related all the information from Dr. Cohn. Clinton states that his sister generally handles all this for Mikel, but she has been working more recently, so Clinton may have to handle this. I let him know that the order for the US is here for fish bait picker and based on her chart, it [...] vincent but no answer [facility] Telephone encounter Note * Telephone Encounter - Grace Linda LPN - 12/20/2023 9:14 AM EDT Attempted to LM for pt to rtn call. VM is full, unable at this time. Will attempt to contact later. [facility]05-10-2024 Telephone encounter Note* Telephone Encounter - Arnel Govea LPN - 12/16/2023 4:07 PM EDT Tried to call the patients son, there was no answer. [facility]05-10-2024 Telephone encounter Note* Telephone Encounter - Arnel Govea LPN - 12/16/2023 4:02 PM EDT ----- Message from Komal Cohn DO sent at 12/16/2023 3:31 PM EDT ----- End stage kidney disease neph conult us ordered stop lasix I spoke qwith pt but she lack insight. She will hav he dgtr call me Tuesday I called son vincent but no answer [facility]05-01-2024 NoteHNO ID: [id number] Author: KOMAL COHN DO Service: ? Author Type: Physician Type: Progress Notes Filed: 12/11/2023 22:53 Note Text: [facility] Komal Cohn DO [address] [place] [address] Date of Evaluation: 12/07/2023 Patient Name: Mikel Winston : 1945 Chief Complaint: Patient presents with: Urinary Frequency: Burning with urination Confusion Leg Edema: Right lower leg, redness, blisters Nursing Intake: There are no exam notes on file for this visit. Subjective Ms. Winston is a 78 year old female who presents with the following complaint(s): The history is provided by the patient. No english language learner tutor was used. UTI This is a new [...] Reported on 03/07/2023) MULTIVITAMIN (more content not included)...[facility] 12-07-2023 History of Present illness Narrative* Komal Cohn DO - 12/07/2023 10:32 AM EDT Images from the original note were not included. [facility] [place] Komal Cohn DO [address] [place] [address] Date of Evaluation: 12/07/2023 Patient Name: Mikel Winston : 1945 Chief Complaint: Patient presents with: Urinary Frequency: Burning with urination Confusion Leg Edema: Right lower leg, redness, blisters Nursing Intake: There are no exam notes on file for this visit. Subjective Ms. Winston is a 78 year old female who presents with the following complaint(s): The history is provided by the patient. No english language learner tutor was used. UTI This is a new [...] Ellsworth December 07, 2023 10:54 AMProvider Attestation: Komal Anaya DO personally performed the [...] DO, 2023 10:52 PM documented in this encounterAdena Health System02-21-2024 Miscellaneous Notes* Telephone Encounter - Marilin Rosales LPN - 09/28/2023 4:09 PM EST Pharmacy faxed requesting the following refill Refill(s) Requested: Requested Prescriptions Pending Prescriptions Disp Refills MYRBETRIQ 25 mg Tb24 [Pharmacy Med Name: MYRBETRIQ ER 25 MG TABLET] 90 tablet 1 Sig: take 1 tablet by mouth every day ALLERGIES Allergen Reactions Codeine Hives, Rash Codeine Sulfate Unknown (home) [phone] (cell) Last Office Visit Date: 06/27/2023 Last [facility] Visit: Visit date not found Future Appointment: Visit date not found The patients preferred pharmacy has been captured for this encounter? yes Request is for script(s) to be escript to pharmacy. Marilin Rosales LPN documented in this encounterAdena Health System01-15-2024 NoteHNO ID: [id number] Author: GOGO BARBOSA RN Service: ? Author Type: Registered Nurse Type: Progress Notes Filed: 08/22/2023 15:11 Note Text: POPULATION HEALTH NAVIGATION OUTREACH Action/FYI Patient Identified by Name and : YES, Outreach Outcome/Action Chart reviewed and record for caregap Controlling Blood Pressure uploaded to [employer]. Reason for Outreach Care Gap or Scheduling/Wellness visits Payer: Payor: [facility] [employer] / Plan: [facility] MEDICARE ADVANTAGE HMO / Product Type: HMO / Care Gap Reviewed:: Controlling Blood Pressure Navigation Signature: Gogo Barbosa RN August 22, 2023 3:08 [facility]01-15-2024 NotePatient Outreach (AGA) MIKEL WINSTON ([id number]) 1945 F Date Time Provider Department 08/22/23 GOGO BARBOSA [facility] During your visit today, we recorded the following information about you: Gogo Barbosa RN 08/22/2023 3:11 PM Signed POPULATION HEALTH NAVIGATION OUTREACH Action/FYI Patient Identified by Name and : YES, Outreach Outcome/Action Chart reviewed and record for caregap Controlling Blood Pressure uploaded to [employer]. Reason for Outreach Care Gap or Scheduling/Wellness visits Payer: Payor: [employer] Insurance Agency / Plan: [facility] MEDICARE ADVANTAGE HMO / Product Type: HMO [...] 12/26/2022 Encounter Status:Closed by GOGO BARBOSA on 08/22/23[facility] 07-26-2023 Miscellaneous Notes* Telephone Encounter - Arnel Govea LPN - 07/26/2023 9:38 AM EST Pharmacy faxed requesting the following refill Refill(s) Requested: Requested Prescriptions Pending Prescriptions Disp Refills furosemide (LASIX) 20 mg tablet [Pharmacy Med Name: FUROSEMIDE 20 MG TABLET] 90 tablet 0 Sig: take 1 tablet by mouth every day ALLERGIES Allergen Reactions Codeine Hives, Rash Codeine Sulfate Unknown (home) [phone] (cell) Last Office Visit Date: 06/27/2023 Last [facility] Visit: Visit date not found Future Appointment: Visit date not found The patients preferred pharmacy has been captured for this encounter? yes Request is for script(s) to be escript to pharmacy. Arnel Govea LPN documented in this encounterAdena Health System12-07-2023 Miscellaneous Notes* Telephone Encounter - Marilin Rosales LPN - 07/14/2023 8:05 AM EST Pharmacy faxed requesting the following refill Refill(s) Requested: Requested Prescriptions Pending Prescriptions Disp Refills losartan (COZAAR) 25 mg tablet [Pharmacy Med Name: LOSARTAN POTASSIUM 25 MG TAB] 90 tablet 0 Sig: take 1 tablet by mouth every day ALLERGIES Allergen Reactions Codeine Hives, Rash Codeine Sulfate Unknown (home) [phone] (cell) Last Office Visit Date: 06/27/2023 Last [facility] Visit: Visit date not found Future Appointment: Visit date not found The patients preferred pharmacy has been captured for this encounter? yes Request is for script(s) to be escript to pharmacy. Marilin Rosales LPN documented in this encounterAdena Health System11-27-2023 Miscellaneous Notes* Telephone Encounter - Arnel Govea [...] I think I sent? documented in this encounterAdena Health System11-26-2023 Evaluation note* Diagnosis Type 2 diabetes mellitus with stage 3 chronic kidney disease, without long-term current use of insulin, unspecified whether stage 3a or 3b CKD (HCC)- Primary Primary hypertension Unspecified essential hypertension Recurrent UTI (urinary tract infection) Urinary tract infection, site not specified Heart murmur Undiagnosed cardiac murmurs Obesity, Class I, BMI 30-34.9 Obesity, unspecified documented in this encounter [facility] History of Present illness Narrative* Komal Cohn DO - 06/27/2023 11:04 AM EST Images from the original note were not included. [facility] [place] Komal Cohn DO [address] [place] [address] Date of Evaluation: 06/27/2023 Patient Name: Mikel Winston : 1945 Chief Complaint: Patient presents with: F/U 3 Month Diabetes Hypertension Nursing Intake: There are no exam notes on file for this visit. Subjective Ms. Winston is a 77 year old female who presents with the following complaint(s): The history is provided by the patient. No english language learner tutor was used. Diabetes She presents for her [...] June 27, 2023 1:19 PM. Physician Statement: IKomal DO, personally performed the services described in the documentation, as scribed by Melanie Ellsworth in my presence, and it is both accurate and complete June 27, 2023 11:10 AM. documented in this encounterAdena Health System09-20-2023 Miscellaneous Notes* Telephone Encounter - Arnel Govea LPN - 04/27/2023 8:30 AM EDT Pharmacy faxed requesting the following refill Refill(s) Requested: Requested Prescriptions Pending Prescriptions Disp Refills levothyroxine (SYNTHROID) 50 mcg tablet [Pharmacy Med Name: LEVOTHYROXINE 50 MCG TABLET] 90 tablet 3 Sig: take 1 tablet by mouth every day ALLERGIES Allergen Reactions Codeine Hives, Rash Codeine Sulfate Unknown (home) [phone] (cell) Last Office Visit Date: 03/14/2023 Last [facility] Visit: Visit date not found Future Appointment: 06/13/2023 The patients preferred pharmacy has been captured for this encounter? yes Request is for script(s) to be escript to pharmacy. Arnel Govea LPN documented in this encounterAdena Health System08-23-2023 History of Present illness Narrative* Jose Rojas MD - 03/30/2023 10:40 AM EDT Images from the original note were not included. [facility] CARDIOLOG[facility] [address] [place] [address] [facility] [address] Dept: [phone] Dept Loc: [phone] DATE of SERVICE:03/30/23 TIME of SERVICE: 11:03 [...] back in 6 months. documented in this [facility]08-07-2023 History of Present illness Narrative* Komal Cohn DO - 03/14/2023 10:52 AM EDT Images from the original note were not included. [facility] [place] Komal Cohn DO [address] [place] [address] Date of Evaluation: 03/14/2023 Patient Name: Mikel [...] history is provided by the patient. No english language learner tutor was used. Edema This is a chronic [...] ICD9: 278.00, V85.33, ICD10: E66.9, Z68.33 Komal Cohn, DO Return in about 3 months (around [...] 14, 2023 11:14 AM. documented in this encounterAdena Health System08-01-2023 Miscellaneous Notes* Telephone Encounter - Grace Linda LPN - 03/08/2023 2:03 PM EDT Pt notified of results and verbalized understanding. * Telephone Encounter - Komal Cohn DO - 03/08/2023 10:45 AM EDT No deep vein clot just do what we discussed yesterday, documented in this encounterAdena Health System07-31-2023 Miscellaneous Notes* Telephone Encounter - Marilin Rosales [...] Codeine Hives, Rash Codeine Sulfate Unknown (home) [phone] (cell) Last Office Visit Date: 03/07/2023 Last [facility] Visit: Visit date not found Future Appointment: 06/13/2023 The patients preferred pharmacy has been captured for this encounter? yes Request is for script(s) to be escript to pharmacy. Marilin Rosales LPN documented in this encounterAdena Health System07-31-2023 History of Present illness Narrative* Komal Cohn DO - 03/07/2023 11:12 AM EDT Images from the original note were not included. [facility] [place] Caputa Lalit, DO [address] [place] [address] Date of Evaluation: 03/07/2023 Patient Name: Mikel Winston : 1945 Chief Complaint: Patient presents with: Swelling: Right leg swelling and redness. Left foot swelling. Urinary Frequency Nursing Intake: There are no exam notes on file for this visit. Subjective Ms. Winston is a 77 year old female who presents with the following complaint(s): The history is provided by the patient. No english language learner tutor was used. Edema This is a recurrent [...] 07, 2023 11:33 AM. documented in this encounterAdena Health System07-26-2023 Miscellaneous Notes* Telephone Encounter - Tigist Elliott [...] ride to reschedule. * Telephone Encounter - Ileana Elliottah - 03/02/2023 4:09 PM EDT ----- Message [...] for the UTI Was Patient Referred to [facility]ek Emergency Treatment (Y/N): no Did Patient Agree (Y/N): n/a Was An Attempt Made To Transfer The Patient To The Office (Y/N): no Were You Able To Reach Someone At The Office (Y/N): n/a If Yes - Patient Was Transferred To (Caregivers Name): n/a If No - Which [facility] Leadership Instrument Checker Did You Speak With Regarding This Patient: n/a Was an appointment scheduled (Y/N): no-unable to schedule same day Reason patient was requesting visit (RFV/signs and symptoms/diagnosis) : leg swelling in 1 leg withrash, possible UTI as well---unable to schedule same day or for the UTI Person calling if other than patient: n/a Return call to if other than patient: n/a Best contact number: [phone] Thank you, Seema Malik March 02, 2023 3:44 PM documented in this encounterAdena Health System07-17-2023 Miscellaneous Notes* Telephone Encounter - Arnel Govea [...] Codeine Hives, Rash Codeine Sulfate Unknown (home) [phone] (cell) Last Office Visit Date: 12/13/2022 Last [facility] Visit: Visit date not found Future Appointment: 06/13/2023 The patients preferred pharmacy has been captured for this encounter? yes Request is for script(s) to be escript to pharmacy. Arnel Govea LPN documented in this encounterAdena Health System05-09-2023 Miscellaneous Notes* Telephone Encounter - Arnel Govea [...] Codeine Hives, Rash Codeine Sulfate Unknown (home) [phone] (cell) Last Office Visit Date: 12/13/2022 Last [facility] Visit: Visit date not found Future Appointment: 06/13/2023 The patients preferred pharmacy has been captured for this encounter? yes Request is for script(s) to be escript to pharmacy. Arnel Govea LPN documented in this encounterAdena Health System05-05-2023 Telephone encounter Note * Telephone Encounter - GARCIA Prignle CNP - 12/10/2022 9:58 AM EDT I called and advised her echo completed December 08, 2022 documents a stable, mildly reduced LV function,EF 45%, she has continued moderate aortic stenosis, which is also stable in comparison to her priorecho December 14, 2021. We will continue her present medications, she agrees to keep her upcoming appointment scheduled with Dr. Rojas in March. [facility] [id number] Miscellaneous Notes* Telephone Encounter - GARCIA Pringle [...] office visit in March. documented in this [facility]05-04-2023 Telephone encounter Note* Telephone Encounter - GARCIA [...] her next scheduled office visit in March. [facility] [id number] Hospital Discharge instructions* Discharge Instr - Activity* GARCIA Ruiz CNP - 11/19/2022 12:51 PM EDT As tolerated * Discharge Instr - Diet* GARCIA Ruiz CNP - 11/19/2022 12:51 PM EDT Carb controlled * Attachments The following attachments cannot be sent through Care Everywhere. * Urinary Tract Infection Discharge Instructions, Adult (Citizen [place]) documented in this [place] [address]-14-2023 History of Present illness Narrative* Erma French - 11/19/2022 9:07 AM EDT Nutrition rescreen completed. Patient assigned a level 1. documented in this [place] [address]-13-2023 Miscellaneous Notes* Significant Event - GARCIA Weeks CNP - 11/18/2022 1:20 AM EDT I am not directly involved in care of this patient. Accepted with initial orders placed remotely from [facility] with approval from Dr. Henderson. Further care to be managed by ED provider pending day shift CDU provider arrival. This is a non- billable note. documented in this [place] [address]-13-2023 Note* Significant Event - GARCIA Weeks CNP - 11/18/2022 1:20 AM EDT I am not directly involved in care of this patient. Accepted with initial orders placed remotely from [facility] with approval from Dr. Henderson. Further care to be managed by ED provider pending day shift CDU provider arrival. This is a non- billable note. [place] [id number] Note* Significant Event - GARCIA Weeks CNP - 11/18/2022 1:20 AM EDT I am not directly involved in care of this patient. Accepted with initial orders placed remotely from [facility] with approval from Dr. Henderson. Further care to be managed by ED provider pending day shift CDU provider arrival. This is a non- billable note. [facility] [id number] Emergency department Note* Ajit Gray DO - 11/17/2022 8:19 PM EDT Emergency Department Encounter [facility] ED Patient: Mikel Winston : 1945 Date of Evaluation: 11/17/2022 ED Provider: Ajit Gray DO Chief Complaint Chief Complaint Patient presents with Urinary Frequency Pt states painful urination, family states that pt has been acting more confused since Tuesday. PT was able to answer orientation questions appropriately. [place] Mikel Winston is a 77 y.o. female [...] by mouth daily. Allergies Allergen Reactions Codeine Hivradha I have reviewed the history above as [...] patient to the CDU for treatment of BRARY and early cystitis. Diagnoses as of 11/18/22 0149 BARRY (acute kidney injury) (CMS/HCC) ([facility]) Cystitis Diagnostic tests considered but not [...] Impression 1. BARRY (acute kidney injury) (CMS/HCC) ([facility]) 2. Cystitis DISPOSITION observation Comment: Please [...] Gray DO 11/18/22 0154 documented in this [facility]04-12-2023 Physician Emergency department Note* Ajit Gray DO - 11/17/2022 8:19 PM EDT Emergency Department Encounter [facility] ED Patient: Mikel Winston : 1945 Date of Evaluation: 11/17/2022 ED Provider: Ajit Gray DO Chief Complaint Chief Complaint Patient presents with Urinary Frequency Pt states painful urination, family states that pt has been acting more confused since Tuesday. PT was able to answer orientation questions appropriately. DAWIT Winston is a 77 y.o. female who [...] Impression 1. BARRY (acute kidney injury) (CMS/HCC) ([facility]) 2. Cystitis DISPOSITION observation Comment: Please [...] [employer] Ajit Gray DO 11/18/22 0154 [facility] [id number] Miscellaneous Notes* Telephone Encounter - Marilin Rosales [...] say twice a day to [facility] [place] Order pended * Telephone Encounter - Tigist Elliott - 11/10/2022 10:58 AM EDT Pt called in and said her glucose monitor stopped working. She would like someone to call her back (home # first and then mobile) to discuss what to do. 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 documented in this encounterAdena Health System03-13-2023 Miscellaneous Notes* Telephone Encounter - Arnel Govea [...] (home) Last Office Visit Date: 08/16/2022 Last [facility] Visit: Visit date not found Future Appointment: 11/15/2022 The patients preferred pharmacy has been captured for this encounter? yes Request is for script(s) to be escript to pharmacy. Arnel Govea LPN documented in this encounterAdena Health System02-23-2023 History of Present illness Narrative* Charley Parker APRN - [employer] MELTER - 09/30/2022 11:00 AM EST Images from the original note were not included. [facility] Cardiology Office Note DATE of SERVICE: 09/30/22 [...] evaluation and to assess for progression 3. Tqltinfzdmut-ucwn-cisoekjxgr 4. Dyslipidemia-high intensity statin therapy continues, rosuvastatin 20 mg daily for cardiac risk reduction 5. Follow-up-6 months and as needed. Charley Parker APRN/JATIN documented in this [facility]02-13-2023 Miscellaneous Notes* Telephone Encounter - Marilin Rosales LPN - 09/20/2022 9:15 AM EST E-Prescribing Status: Receipt confirmed by pharmacy (08/19/2022 11:02 AM EST) 90 tablets was given 1/12/23. documented in this encounterAdena Health System02-09-2023 Miscellaneous Notes* Telephone Encounter - Marilin Rsoales LPN - 09/16/2022 2:10 PM EST 90 tablets was sent 08/19/22. E-Prescribing Status: Receipt confirmed by pharmacy (08/19/2022 11:02 AM EST) documented in this encounterAdena Health System01-16-2023 Miscellaneous Notes* Telephone Encounter - Marilin Rosales [...] pharmacy. Marilin Rosales LPN documented in this encounterAdena Health System01-12-2023 Miscellaneous Notes* Telephone Encounter - Marilin Rosales LPN - 08/19/2022 9:37 AM EST Medication pended * Telephone Encounter - Nanette Nelson - 08/19/2022 9:30 AM EST Pt requesting refill of Losartan 25mg 1 daily. Pt is almost out. Please send [facility] [place] documented in this encounterAdena Health System01-09-2023 Miscellaneous Notes* Telephone Encounter - Arnel Govea [...] (home) Last Office Visit Date: 08/16/2022 Last [facility] Visit: Visit date not found Future Appointment: 11/15/2022 The patients preferred pharmacy has been captured for this encounter? yes Request is for script(s) to be escript to pharmacy. Arnel Govea LPN documented in this encounterAdena Health System01-09-2023 History of Present illness Narrative* Komal Cohn DO - 08/16/2022 11:29 AM EST Images from the original note were not included. [facility] [place] Komal Cohn DO [address] [place] [address] Date of Evaluation: 08/16/2022 Patient Name: Mikel Winston : 1945 Chief Complaint: Patient presents with: Diabetes Hypertension Cough Nasal Congestion wants to discuss how much Furosemide to take Nursing Intake: There are no exam notes on file for this visit. Subjective Ms. Winston is a 77 year old female who presents with the following complaint(s): The history is provided by the patient. No english language learner tutor was used. Diabetes She presents for her [...] and in the presence of, Physician Statement: I, Komal Cohn DO, personally performed the services described in the documentation, as scribed by Melanie Ellsworth in my presence, and it is both accurate and complete August 16, 2022 11:40 AM.Komal Cohn DO August 16, 2022 11:35 AM. documented in this encounterAdena Health System09-26-2022 History of Present illness Narrative* Komal Cohn DO - 05/03/2022 11:18 AM EDT Images from the original note were not included. [facility] [place] Komal Cohn DO [address] [place] [address] Date of Evaluation: 05/03/2022 Patient Name: Mikel [...] history is provided by the patient. No english language learner tutor was used. Diabetes She presents for her [...] 03, 2022 11:33 AM. documented in this encounterAdena Health System09-26-2022 Miscellaneous Notes* Telephone Encounter - Marilin Rosales LPN - 05/03/2022 11:18 AM EDT Patient has an appt today * Telephone Encounter - Komal Cohn DO - 04/30/2022 11:00 AM EDT * Telephone Encounter - Marilin Rosales LPN - 04/29/2022 3:46 PM EDT Images from the original note were not included. Jackie from [facility] called in and left [...] the lasix and losartan. documented in this encounterAdena Health System09-21-2022 Miscellaneous Notes* Telephone Encounter - Le Graves - 04/28/2022 11:24 AM EDT PT RETURNED CALL AND WAS GIVEN NEW INSTRUCTIONS W MEDICATIONS PT IS SCHEDULED 05/03/22 ALSO. SO ANY FURTHER QUESTIONS SHE WILL ASK AT THIS APPT SHE STATED. documented in this encounterAdena Health System09-20-2022 Miscellaneous Notes* Telephone Encounter - Komal Cohn DO - 04/27/2022 2:55 PM EDT Decrease lasix to 20 mg day decrease losartan to 25 mg day bmp 2 weeks written documented in this encounterAdena Health System09-12-2022 Miscellaneous Notes* Telephone Encounter - Grace Linda [...] PM EDT Rec'd call from Noemi at [facility]. She seen patient and states that she has 2+ pitting edema, with a 4.6 # wt gain. Pt has 20mg Lasix prn. Is it ok for the patient to take 20mg daily until the swelling goes down. Please advise documented in this encounterAdena Health System09-06-2022 Miscellaneous Notes* Telephone Encounter - Grace Linda [...] pharmacy. Grace Linda LPN documented in this encounterAdena Health System07-18-2022 Miscellaneous Notes* Telephone Encounter - Alia De [...] De La Paz LPN documented in this encounterAdena Health System07-15-2022 Miscellaneous Notes* Telephone Encounter - Nanette Nelson - 02/19/2022 3:25 PM EDT Pt has been recertified for home care. She will be seen once weekly every other week for 8 weeks, to help her understand diabetes and CHF Nanette Nelson documented in this encounterAdena Health System06-14-2022 Miscellaneous Notes* Telephone Encounter - Le Canales - 01/19/2022 3:00 PM EDT LATONYA A [employer] [email or web address] PHONED W HIS RECOMMENDATION W HER INCOME SHE SHOULD QUALIFY FOR WAIVERED MEDICAID PLAN. SHE HAS AGREED TO SPEAK W SOMEONE W [facility] [place]. THIS WILL HELP PROVIDE MORE SERVICES FOR HER W HELP IN THE HOME. (STATED PATIENT IS $300-$400 OVER IN HER INCOME FOR MEDICAID. BUT SHE IS BORDERLINE FOR POVERTY LEVEL. LATONYA CAN BE REACHED AT [phone] documented in this encounterAdena Health System05-31-2022 Miscellaneous Notes* Telephone Encounter - Komal Cohn [...] and Date of (Y/N): Y Patient: Mikel [place]iston Date of : 1945 Provider for this encounter: Komal Cohn DO Reason for the call/escalation: WANTS TO VERIFY IF WE RECEIVED RECENT LABS FROM [employer] [facility] Was Patient Referred to [facility] (Y/N): NA Did Patient Agree (Y/N): NA Was An Attempt Made To Transfer The Patient To The Office (Y/N): N Were You Able To Reach Someone At The Office (Y/N): NA If Yes - Patient Was Transferred To (Caregivers Name): NA If No - Which [facility] Leadership Instrument Checker Did You Speak With Regarding This Patient: NA Was an appointment scheduled (Y/N): Y Reason patient was requesting visit (RFV/signs and symptoms/diagnosis) : REQUESTING TO VERIFY IF THE OFFICE RECEIVED HER RECENT LAB WORK FROM [facility] Person calling if other than patient: PATIENT Return call to if other than patient: PATIENT Best contact number: [phone] Thank you, Dari Nichole January 05, 2022 12:11 PM documented in this encounterAdena Health System05-27-2022 Miscellaneous Notes* Telephone Encounter - Komal Cohn DO - 01/01/2022 4:33 PM EDT Anemia. Any bleeding ckd Needs anemia labs. Ill need to see bt labs ordered documented in this encounterAdena Health System05-19-2022 Miscellaneous Notes* Telephone Encounter - Marilin Rosales [...] (home) Last Office Visit Date: 11/30/2021 Last [facility] Visit: Visit date not found Future Appointment: 03/01/2022 The patients preferred pharmacy has been captured for this encounter? yes Request is for script(s) to be escript to pharmacy. Marilin Rosales LPN documented in this encounterAdena Health System05-19-2022 Miscellaneous Notes* Telephone Encounter - Fawad Wayne Perez DO - 12/24/2021 11:17 AM EDT I reviewed her hospital discharge summary. She had sepsis with Enterococcus. Infectious disease recommended the Linezolid. There is not a clear substitute. See if we can process the prior authorization. I know it is expensive but the patient may want to pay [id number] to get the best antibiotic. Dr. Perez [...] the physician covering for him. I contacted [facility] and they stated that the medication does require aPA - it is not approved be Medicare. I asked that the PA request be sent to the office. Is there another medication that can be given to the patient? Please advise. documented in this encounterAdena Health System05-17-2022 NoteDischarge Summary Mikel Winston : 1945 ADMIT [...] relief after 1 dose, call 911. nystatin [id number] UNIT/GM powder Commonly known as: MYCOSTATIN omeprazole [...] Your Medications These medications were sent to [facility]/pharmacy #[id number] - [place], [place] - [address] [facility] [phone] - F [phone] [address] [facility] [id number] ? atenolol 50 MG tablet ? benzonatate 100 MG capsule ? levothyroxine 50 MCG tablet ? linezolid 600 MG tablet DIET: No diet orders on file ACTIVITY: No restriction. up with assist SIGNIFICANT DIAGNOSTIC STUDIES: COMPLEXITY OF FOLLOW UP: [] Moderate Complexity: follow up within 7-14 calendar days (55471) [] Severe Complexity: follow up within 7 calendar days (30651) FOLLOW UP TESTING, PENDING RESULTS OR REFERRALS [...] minutes SIGNED: Nguyen Mclaughlin MD 12/30/2021, 2:31 [facility]05-17-2022 Hospital Discharge instructions * Discharge Instr [...] at most local grocery stores, pharmacies, and [employer]-stores. If you have any questions about your diet or nutrition, call the hospital and ask for the dietitian. Heart Healthy * Discharge Instr - Lab* Diya Vaughan LPN - 12/20/2021 1:18 PM EDT Your physician has ordered skilled home care services for you. Your home care will be provided by: [facility] [phone] Scheduling [phone] * Additional Instructions* Linda John MD - 12/13/2021 Please return to the emergency department if your symptoms change or worsen. * Attachments The following attachments cannot be sent through Care Everywhere. * UTI (Urinary Tract Infection): Female (Citizen Of [place]) documented in this [employer] Work Phone: 1(116) 818-705305-17-2022 History of Present illness Narrative* Sue Flood RCP - 12/22/2021 2:36 PM EDT [facility] Respiratory Care Department Progress Note SpO2 at rest on RA = 99% SpO2 with ambulation on RA = 97% Distance Walked = 100' Recovery SpO2 with ambulation = 99% Qualify for home O2 Y/N = No Patient mobile at home Y/N = Yes * Grace Galvez PTA - 12/22/2021 1:48 PM EDT Physical Therapy Facility/Department: [facility] Physical Therapy Treatment Note Name: Mikel [...] Ambulation Assistance: Independent Transfer Assistance: Independent Active Hydrate Thickener Operator: No Patient's Hydrate Thickener Operator Info: children Occupation: Retired Vision/Hearing Cognition Orientation [...] to need for bathroom use AM-PAC Score [facility] Inpatient Mobility Raw Score : 23 (12/22/211347) [facility] Inpatient T-Scale Score : 56.93 (12/22/211347) Mobility Inpatient CMS 0-100% Score: 11.2 (12/22/211347) Mobility Inpatient [facility] G-Code Modifier : CI (12/22/211347) Goals Short [...] Timed Code Treatment Minutes: 12 Minutes (GT) ROOF FIXER wore surgical mask and gloves throughout entire session with patient. Patient wore mask at all times when out of room. Grace Galvez, ZACH * Cheryl Escalante, DAVIS - 12/22/2021 12:41 PM EDT Occupational Therapy Facility/Department: [facility] Occupational Therapy Daily Treatment Note Name: [...] Ambulation Assistance: Independent Transfer Assistance: Independent Active Hydrate Thickener Operator: No Patient's Hydrate Thickener Operator Info: children Occupation: Retired Safety Devices Type [...] Cognition Overall Cognitive Status: WFL AM-PAC Score [facility] Inpatient Daily Activity Raw Score: 22 (12/22/211515) [facility] Inpatient ADL T-Scale Score : 47.1 (12/22/211515) [...] included. Hospitalist Progress Note 12/21/2021 5:09 PM [phone]: Please page me or perfect serve me for patient care issues. [id number]: Please page [facility] night Hospitalist for any issues. Subjective: Admit Date: 12/13/2021 PCP: KOMAL COHN DO Room#: 119/[id number] Admitting synopsis:Admitted 12/13/21 with AMS and found [...] 2* 3 3 LIVER PROFILE: Recent Labs 12/19/2137 12/20/2152612/21/21521 AST 49* 85* 40 ALT 12 13 [...] Severe Extremities (HF dx, cellulitis of leg.) Denture Packer Strength: Not Performed Nutrition Assessment: Pt states [...] Anthropometric Measures: Height: 5' 5 (165.1 cm) [place] Body Weight (IBW): 125 lbs (57 kg) [...] On: Kcal/kg Weight Used for Energy Requirements: [place] Energy (kcal/day): 1425 - 1700 kcal (25-30) Weight Used for Protein Requirements: [place] Protein (g/day): 57-86 g (1-1.2) Method Used for Fluid Requirements: ml/Kg Fluid (ml/day): 0505-9435 or per MD Nutrition Diagnosis: Altered nutrition-related [...] Planning: Continue current diet Nurys Butts Contact: #[phone] * Sue Tripathi, WAITER/WAITRESS FORMAL - [employer] - 12/21/2021 1:11 PM EDT Order placed [...] ROM Expected Impact [] POA Clarified [] PROBATION OFFICER Avoided [] Nursing Function [] Provider Function for [name] [x] Orders Placed [] Symptom Assessment [] Patient Experience [] Patient / Caregiver Conversation * GARCIA King CNP - 12/20/2021 3:56 PM EDT Family Communication Number Called: [phone] Name of Designated Family Funeral Planner: Arnel Forte Relationship to Patient: daughter Phone Call Outcome: I spoke with the individual listed above. Family Funeral Planner Updated on the Following: POC and updated status * Amauri Turcios RP - 12/20/2021 1:40 PM EDT Pharmacy Vancomycin Consult Follow-Up Note Current Dosin Q12h: Last dose held due to trough = 27 (LD 12/19 @ 13:14) Recent Labs 12/19/21 0537 12/20/21 05 BUN 26* 26* Recent Labs 12/19/21 0537 12/20/21 05 CREATININE 1.13 1.02 Recent Labs 12/18/21 0239 [...] @ 13:00 * Aspen Santos APRN - [employer] - 12/20/2021 12:01 PM EDT Images from the original note were not included. Hospitalist Progress Note 12/20/2021 12:01 PM [phone]: Please page me ([phone]) or perfect serve me for patient care issues. [phone]: Please page [facility] night Hospitalist for any issues. Subjective: Admit Date: 12/13/2021 PCP: KOMAL COHN DO Room#: [id number] Admitting synopsis:Admitted 12/13/21 with AMS and found [...] RDW 13.0 PLT 108* BMP: Recent Labs 12/18/2123812/19/2153612/20/21526 NA 134* 133* 136 K 3.7 3.7 3.8 CL 104 101 101 CO2 30 31* 33* BUN 24* 26* 26* CREATININE 1.01 1.13 1.02 GLUCOSE 121* 117* 125* CALCIUM 9.1 9.1 9.3 ANIONGAP 1* 2* 3 LIVER PROFILE: Recent Labs 12/18/2123812/19/2153612/20/21526 AST 53* 49* 85* ALT 11 12 [...] of Hospitalist Medicine Inpatient Medical Services PAGER: [phone] * Ginny Gramajo [facility] - 12/19/2021 2:20 PM EDT Pharmacy Vancomycin Consult Follow-Up Note Current Dosin bid Recent Labs 05/13/23812/19/21 0537 BUN 24* 26* Recent Labs 12/18/21 0239 12/19/21 05 CREATININE 1.01 1.13 Recent Labs 12/18/21238 WBC 6.3 Ht Readings from Last 1 Encounters: 12/16/21 5' 5 (1.651 m) Wt Readings from Last 1 Encounters: 12/18/21 204 lb (92.5 kg) Body mass index is 33.95 kg/m . Estimated Creatinine Clearance: 48 mL/min (based on SCr of 1.13 mg/dL). Trough: 27 mcg/ml drawn 12/19 at 1312 Assessment/Plan: Hold 1 dose and get random level 12/20 at 1300 prior to starting next dose * Aspen Santos APRN - [employer] - 12/19/2021 11:04 AM EDT Images from the original note were not included. Hospitalist Progress Note 12/19/2021 11:04 AM [phone]: Please page me ([phone]) or perfect serve me for patient care issues. [phone]: Please page [facility] night Hospitalist for any issues. Subjective: Admit Date: 12/13/2021 PCP: KOMAL COHN DO Room#: 260/2271 Admitting synopsis: Admitted 12/13/21 with AMS and [...] RDW 13.0 PLT 108* BMP: Recent Labs 12/17/2112712/18/2123812/19/21 0537 NA 137 134* 133* K 3.4* 3.7 3.7 CL 105 104 101 CO2 28 30 31* BUN 28* 24* 26* CREATININE 1.06 1.01 1.13 GLUCOSE 157* 121* 117* CALCIUM 8.9 9.1 9.1 ANIONGAP 3 1* 2* LIVER PROFILE: Recent Labs 12/17/2112712/18/2123812/19/21 0537 AST 42 53* 49* ALT 12 [...] Advance Directive: Full Code Discharge planning: TBD ASPEN SANTOS APRN - [employer] Division of Hospitalist Medicine Inpatient Medical Services PAGER: [phone] * Jess Espino PTA - 12/19/2021 10:33 AM EDT Physical Therapy Facility/Department: [facility] Daily Treatment Note Name: Mikel Winston [...] AM-[facility] Inpatient Mobility Raw Score : 23 (12/19/21 102) AM-[facility]AC Inpatient T-Scale Score : 56.93 (12/19/211026) [...] Minutes: 15 Minutes (1 gait) Jess Espino PTA * Stanley Bai - 12/18/2021 1:29 PM EDT Occupational Therapy Facility/Department: [facility] Occupational Therapy Daily Treatment Note [...] Ambulation Assistance: Independent Transfer Assistance: Independent Active Hydrate Thickener Operator: No Patient's Hydrate Thickener Operator Info: children Occupation: Retired Objective Pulse: 75 [...] discharge planning, see orders. * Guy Dimas, [facility] - 12/18/2021 10:33 AM EDT [facility] Respiratory Care Department Progress Note As part [...] the care of this patient, * Grace Manda Galvez, ROOF FIXER - 12/17/2021 2:53 PM EDT Physical Therapy Facility/Department: [facility] Physical Therapy Treatment Note Name: Mikel [...] management. Recommend Home with assist PRN and C PT at discharge. Activity Tolerance Activity Tolerance: [...] Ambulation Assistance: Independent Transfer Assistance: Independent Active Hydrate Thickener Operator: No Patient's Hydrate Thickener Operator Info: children Occupation: Retired Vision/Hearing Cognition Orientation [...] Treatment Minutes: 34 Minutes (GT, Ther Act) ROOF FIXER wore surgical mask and gloves throughout entire session with patient. Patient wore mask at all times when out of room. Grace Galvez PTA * Ginny Gramajo [facility] - 12/17/2021 2:20 PM EDT Pharmacy Vancomycin [...] original note were not included. [facility] Medical [facility] - Infectious Diseases Attending Progress Note [...] F (36.9 C) Oral 75 99 % 12/16/215 98 % 12/16/212000 123/60 97.3 F (36.3 [...] No growth at 2 days. 12/15/2021 BC Enterococcus faecalis 12/13/2021 BC 12/13/2021 Isolated: For identification and/or sensitivity, refer to culture collected on: 12/13/2021 at 1518 ([id number]). BC 12/13/2021 Enterococcus faecalis DETECTED; Leticia/B Not Detected. Presumptive identification performed using Camerama PCR methodology; confirmatory identification to follow. _ The Camerama BCID2 PCR Panel can detect the following [...] IMP, KPC, NDM, OXA-48-like, VIM, and mcr-1. Enterococcus faecalis 12/13/2021 BC Isolated: 12/13/2021 No results found for: LABAERO No results found for: LABANAE No results found for: RESPCULTURE Blood Culture, Routine Enterococcus faecalis Abnormal Blood Culture, Routine Isolated: [facility] Contains abnormal data Culture, Blood 2 Order: [id number] Status: Final result Visible to patient: No [...] PT/OT,discharge planning, see orders. * Jade Bland, [facility] - 12/16/2021 12:22 PM EDT [facility] Respiratory Care Department Progress Note As [...] on sodium content of foods from the [facility] Care Manual. Pt did admit that [...] Severe Extremities (HF hx, cellulitis of leg) Denture Packer Strength: Not Performed Nutrition Assessment: Pt was [...] Anthropometric Measures: Height: 5' 5 (165.1 cm) [place] Body Weight (IBW): 125 lbs (57 kg) [...] On: Kcal/kg Weight Used for Energy Requirements: [place] Energy (kcal/day): 1060-3290 kcals (25-30) Weight Used for Protein Requirements: [place] Protein (g/day): 57-68 Fluid (ml/day): per MD [...] Planning: Continue current diet [address]rence [address], JUNIE Contact: *[phone] * Ariel Solitario MD - 12/15/2021 1:44 [...] 12/15/2021 12:14 PM EDT Occupational Therapy Facility/Department: [facility] Occupational Therapy Initial Assessment Name: Mikel [...] a FWW. [facility] at [facility]. She was [...] above performance deficits. Recommend planned D/C for [facility] OT with assits PRN. Prognosis: Good Decision [...] AM-PAC Inpatient Daily Activity Raw Score: 19 (12/15/21 1215) AM-PAC Inpatient ADL T-Scale Score : 40.22 (12/15/21 1215) ADL Inpatient CMS 0-100% Score: 42.8 (12/15/211214) [...] 98% on 2L O2 NC. * Siddharth Cabello PT - 12/15/2021 10:35 AM EDT Physical Therapy Facility/Department: [facility] Physical Therapy Initial Assessment Name: Mikel [...] Prognosis: Good Decision Making: Medium Complexity Exam: [facility] Clinical Presentation: Pt admitted 12/13 with UTI. She has medical history as indicated which contributes to her clinical presentation. She complete functional mobility CGA-SBA with FWW and will benefit from [facility] PT Barriers to Learning: None Requires PT [...] 11:43 AM EDT Spoke with Luisa at [facility] Pharm[facility] in [place]. Current medication list updated and notified Dr. Solitario. * Emma Sales RN - 12/13/2021 7:04 PM EDT Spoke with son Costa Winston, he is the primary decision maker for his mother. Home medications need to be verified with [facility] pharmacy in [place]. He will call and get a list and bring to hospital tomorrow. He states his mother is normally Alert and oriented, but has been confused the last several days. * Emma Sales RN - 12/13/2021 6:41 PM EDT Attempted to get questions answered in the admission from Arnel Mejias, patients daughter and she said to call the son Costa. Called [phone] and no answer documented in this encounterSUMMA Work Phone: [phone]) 730-979805-10-2022 Miscellaneous Notes* Telephone Encounter - Marilin Rosales [...] pharmacy. Marilin Rosales LPN documented in this encounterAdena Health System04-25-2022 History of Present illness Narrative* Komal Cohn, DO - 11/30/2021 1:31 PM EDT Images from the original note were not included. [facility] Medicine [place] Komal Cohn, DO [address] [place] [address] Date of Evaluation: 11/30/2021 Patient Name: Mikel Winston : 1945 Chief Complaint: Patient presents with: Diabetes Hypertension Results: results from 09/16. Nursing Intake: There are no exam notes on file for this visit. Subjective Ms. Winston is a 76 year old female who presents with the following complaint(s): The history is provided by the patient. No english language learner tutor was used. Diabetes She presents for her [...] 30, 2021 2:16 PM. documented in this encounterAdena Health System04-18-2022 Miscellaneous Notes* Telephone Encounter - Grace Linda LPN - 11/23/2021 9:16 AM EDT Pharmacy faxed requesting the following refill Refill(s) Requested: Pending Prescriptions Disp Refills FLUTICASONE PROPIONATE 50 MCG/ACTUATION NASAL SPRAY,SUSPENSION 48 mL 3 Sig: SPRAY 2 SPRAYS INTO EACH NOSTRIL EVERY DAY ANNABELLE: Yes ALLERGIES Allergen Reactions Codeine Hives, Rash Codeine Sulfate Unknown (home) Last Office Visit Date: 09/03/2021 Last [facility] Visit: Visit date not found Future Appointment: 11/30/2021 The patients preferred pharmacy has been captured for this encounter? yes Request is for script(s) to be escript to pharmacy. Grace Linda LPN documented in this encounterAdena Health System01-28-2022 Miscellaneous Notes* Telephone Encounter - Nanette Nelson - 09/04/2021 2:55 PM EST Confirmation number: [id number] Nanette Nelson documented in this encounterAdena Health System01-28-2022 Miscellaneous Notes* Telephone Encounter - Marilin Rosales [...] (home) Last Office Visit Date: 09/03/2021 Last [facility] Visit: Visit date not found Future Appointment: 11/30/2021 The patients preferred pharmacy has been captured for this encounter? yes Request is for script(s) to be escript to pharmacy. Marilin Rosales LPN documented in this encounterAdena Health System01-27-2022 History of Present illness Narrative* Komal Cohn DO - 09/03/2021 2:23 PM EST Images from the original note were not included. [facility] [place] C[place] DO [address] [place] [address] Date of Evaluation: 09/03/2021 Patient Name: Mikel Winston : 1945 Chief Complaint: Patient presents with: Cough: x 2 weeks Diabetes Nursing Intake: There are no exam notes on file for this visit. Subjective Ms. Winston is a 76 year old female who presents with the following complaint(s): The history is provided by the patient. No english language learner tutor was used. Cough This is a new [...] I50.9 - Referral to Cardiology given: current continuous improvement coach is retiring. - CONSULT TO CARDIOLOGY 3. [...] September 03, 2021 2:43PM. documented in this encounterAdena Health System12-21-2021 Miscellaneous Notes* Telephone Encounter - Marilin Rosales [...] pharmacy. Marilin Rosales LPN documented in this encounterAdena Health System12-13-2021 Miscellaneous Notes* Telephone Encounter - Marilin Rosales LPN - 07/20/2021 8:39 AM EST Pharmacy faxed requesting the following refill Refill(s) Requested: Pending Prescriptions Disp Refills NYSTATIN 100,000 UNIT/GRAM TOPICAL POWDER 30 g 3 Sig: APPLY TO AFFECTED AREA TWICE A DAY ANNABELLE: Yes ALLERGIES Allergen Reactions Codeine Hives, Rash Codeine Sulfate Unknown (home) Last Office Visit Date: 05/28/2021 Last [facility] Visit: Visit date not found Future Appointment: 08/28/2021 The patients preferred pharmacy has been captured for this encounter? yes Request is for script(s) to be escript to pharmacy. Marilin Rosales LPN documented in this encounterAdena Health System10-21-2021 History of Present illness Narrative* Komal Cohn DO - 05/28/2021 1:42 PM EDT Images from the original note were not included. [facility] Medicine [place] Komal Cohn DO [address] [place] [address] Date of Evaluation: 05/28/2021 Patient Name: Mikel Winston : 1945 Chief Complaint: Patient presents with: Hypertension: check up Hyperlipidemia Diabetes Nursing Intake: There are no exam notes on file for this visit. Subjective Ms. Winston is a 75 year old female who presents with the following complaint(s): The history is provided by the patient. No english language learner tutor was used. Hypertension This is a chronic [...] May 28, 2021 2:06PM. documented in this encounterAdena Health System08-16-2021 Miscellaneous Notes* Telephone Encounter - Jade DriscollDENIS - 03/23/2021 11:26 AM EDT Pharmacy faxed [...] pharmacy. Jade Driscoll LPN documented in this encounterAdena Health System07-21-2021 Miscellaneous Notes* Telephone Encounter - Alia De La Paz LPN - 02/25/2021 2:14 PM EDT Pharmacy needs diagnoses code on script. Pended. documented in this encounterAdena Health System07-19-2021 Miscellaneous Notes* Telephone Encounter - Marilin Rosales LPN - 02/23/2021 8:23 AM EDT Pharmacy faxed requesting the following refill Refill(s) Requested: Pending Prescriptions Disp Refills METFORMIN 1,000 MG TABLET 180 tablet 0 Sig: TAKE 1 TABLET BY MOUTH TWICE A DAY ANNABELLE: Yes ALLERGIES Allergen Reactions Codeine Hives, Rash Codeine Sulfate Unknown (home) Last Office Visit Date: 11/26/2020 Last [facility] Visit: Visit date not found Future Appointment: 02/25/2021 The patients preferred pharmacy has been captured for this encounter? yes Request is for script(s) to be escript to pharmacy. Marilin Rosales LPN documented in this encounterAdena Health System04-21-2021 History of Present illness Narrative* Komal Cohn - 11/26/2020 11:43 AM EDT Images from the original note were not included. [facility] [place] Komalasia Cohn DO [address] [place] [address] Date of Evaluation: 11/26/2020 Patient Name: Mikel Winston : 1945 Subjective Ms. Winston is a 75 year old female who presents for Diabetes, Hypertension, Hyperlipidemia, and RxRefills. The history is provided by the patient. No english language learner tutor was used. Hypertension This is a chronic [...] ROS obtained by others. documented in this encounterAdena Health System04-20-2021 Miscellaneous Notes* Telephone Encounter - Jade Driscoll [...] pharmacy. Jade Driscoll LPN documented in this encounterAdena Health System01-18-2020 Hospital Discharge instructions* Instructions* Melanie Padilla PA-C [...] Everywhere. * Head Injury: Closed: General Info (Citizen [place]) * Rib Contusion ([place]izen [place]) * Black Eye (Citizen [place]) * Incentive Spirometer: General Info ([place]izen Of [place]) documented in this encounterSMADISON HEALTH Work Phone: Evaluation note* Diagnosis Essential hypertension- Primary Unspecified essential hypertension Type 2 diabetes mellitus without complication, without long-term current use of insulin (HCC) Seasonal allergies Allergic rhinitis, cause unspecified documented in this encounter [facility]* Diagnosis Type 2 diabetes mellitus without complication, without long-term current use of insulin (HCC)- Primary documented in this encounter [facility] note* Diagnosis Primary hypertension- Primary Unspecified essential hypertension Type 2 diabetes mellitus without complication, without long-term current use of insulin (HCC) Generalized edema Edema Hypokalemia Hypopotassemia documented in this encounter [facility]* Diagnosis Primary hypertension- Primary Unspecified essential hypertension Hyperlipidemia, mixed Mixed hyperlipidemia Type 2 diabetes mellitus without complication, without long-term current use of insulin (HCC) documented in this encounter [facility]* Diagnosis Type 2 diabetes mellitus without complication, without long-term current use of insulin (HCC)- Primary Congestive heart failure, unspecified HF chronicity, unspecified heart failure type (HCC) Hyperlipidemia, mixed Mixed hyperlipidemia Primary hypertension Unspecified essential hypertension Hypothyroidism, acquired Unspecified hypothyroidism documented in this encounter [facility]* Diagnosis Fall, initial encounter- Primary Closed head injury, initial encounter Bilateral contusion of ribs Strain of right shoulder, initial encounter Contusion of left knee, initial encounter Traumatic hematoma of right eyelid, initial encounter [facility] Work Phone: Evaluation note* Diagnosis Gastro-esophageal reflux disease with esophagitis, without bleeding Abnormal level of blood mineral Other abnormal blood chemistry documented in this encounter [facility] note* Diagnosis Other seasonal allergic rhinitis documented in this encounter [facility] note* Diagnosis Primary hypertension- Primary Unspecified essential hypertension Mixed hyperlipidemia Statin intolerance Other drug allergy Myalgias documented in this encounter [facility]* Diagnosis Type 2 diabetes mellitus without complications (HCC) Type II or unspecified type diabetes mellitus without mention of complication, not stated as uncontrolled documented in this encounter [facility] note* Diagnosis Altered mental status, unspecified altered mental status type- Primary Urinary tract infection without hematuria, site unspecified Acute cystitis without hematuria Acute cystitis documented in this encounter [facility] Work Phone: [facility]* Diagnosis Generalized edema Edema Primary hypertension Unspecified essential hypertension documented in this encounter [facility] note* Diagnosis Anemia, unspecified type- Primary documented in this encounter [facility] note* Diagnosis Gastro-esophageal reflux disease with esophagitis, without bleeding Hypokalemia Hypopotassemia Primary hypertension Unspecified essential hypertension documented in this encounter [facility] note* Diagnosis Abnormal level of blood mineral Other abnormal blood chemistry documented in this encounter [facility] note* Diagnosis Hypokalemia- Primary Hypopotassemia documented in this encounter [facility] note* Diagnosis CKD (chronic kidney disease) stage 1, GFR 90 ml/min or greater- Primary Chronic kidney disease, Stage I documented in this encounter [facility] note* Diagnosis Primary hypertension- Primary Unspecified essential hypertension Hyperlipidemia, mixed Mixed hyperlipidemia Bilateral leg edema Edema Type 2 diabetes mellitus without complication, without long-term current use of insulin (HCC) documented in this encounter [facility] note* Diagnosis BARRY (acute kidney injury) (HCC)- Primary Acute kidney failure, unspecified documented in this encounter [facility] Diagnosis Diabetes (HCC) Type II or unspecified type diabetes mellitus without mention of complication, not stated as uncontrolled Hypothyroidism, acquired Unspecified hypothyroidism documented in this encounter [facility] note* Diagnosis Gastro-esophageal reflux disease with esophagitis, without bleeding documented in this encounter [facility] note* Diagnosis Primary hypertension- Primary Unspecified essential hypertension Hyperlipidemia, mixed Mixed hyperlipidemia Bilateral leg edema Edema Hypothyroidism, acquired Unspecified hypothyroidism Acute non-recurrent maxillary sinusitis documented in this encounter [facility] note* Diagnosis Abnormal level of blood mineral Other abnormal blood chemistry documented in this encounter [facility] note* Diagnosis Type 2 diabetes mellitus without complication, without long-term current use of insulin (HCC)- Primary documented in this encounter [facility] Diagnosis BARRY (acute kidney injury) (CMS/HCC) (HCC)- Primary BARRY (acute kidney injury) (CMS/HCC) (HCC) Cystitis Unspecified cystitis UTI (urinary tract infection) Urinary tract infection, site not specified [facility] Diagnosis Bilateral leg edema Edema Hypokalemia Hypopotassemia 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) Primary hypertension Unspecified essential hypertension documented in this encounter [facility] Diagnosis Nonrheumatic aortic valve stenosis [facility] Diagnosis Primary hypertension Unspecified essential hypertension Other seasonal allergic rhinitis 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) Bilateral leg edema Edema Hypokalemia Hypopotassemia [facility] Diagnosis Gastro-esophageal reflux disease with esophagitis, without bleeding Abnormal level of blood mineral Other abnormal blood chemistry documented in this encounter [facility] Diagnosis Other specified soft tissue disorders [facility] Diagnosis Urinary frequency- Primary Right leg swelling Swelling of limb Cellulitis of skin Cellulitis and abscess of unspecified site Bilateral leg edema Edema Class 1 obesity with body mass index (BMI) of 33.0 to 33.9 in adult, unspecified obesity type, unspecified whether serious comorbidity present [facility] Diagnosis Bilateral leg edema- Primary Edema Cellulitis of skin Cellulitis and abscess of unspecified site Class 1 obesity with body mass index (BMI) of 33.0 to 33.9 in adult, unspecified obesity type, unspecified whether serious comorbidity present [facility] Diagnosis Nonrheumatic aortic valve stenosis- Primary [facility] Diagnosis Other specified soft tissue disorders- Primary Other specified soft tissue disorders [facility] Diagnosis Bilateral leg edema Edema [facility] Diagnosis 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) documented in this encounter [facility] Diagnosis Coronary artery disease involving coronary bypass graft of [place] heart without angina pectoris documented in this encounter [facility] note* Diagnosis Dysuria- Primary Acute UTI Urinary tract infection, site not specified Chronic kidney disease, stage 3b ([facility]) Bilateral leg edema Edema Other depression documented in this encounter [facility] note* Diagnosis Chronic kidney disease, stage 4 (severe) ([facility]) documented in this encounter [facility] note* Diagnosis Cellulitis of right lower extremity- Primary Cellulitis of right lower extremity Acute cystitis without hematuria documented in this encounter [facility] note* Diagnosis Primary hypertension- Primary Unspecified essential hypertension Cellulitis of right lower extremity Cellulitis and abscess of leg, except foot Acute cystitis without hematuria Acute cystitis Class 1 obesity with body mass index (BMI) of 34.0 to 34.9 in adult, unspecified obesity type, unspecified whether serious comorbidity present documented in this encounter [facility] note* Diagnosis Nonrheumatic aortic valve stenosis- Primary Coronary artery disease involving coronary bypass graft of [place] heart without angina pectoris documented in this encounter [facility] note* Diagnosis Cellulitis of left lower leg- Primary Cellulitis and abscess of leg, except foot documented in this encounter [facility] note* Diagnosis Nonrheumatic aortic valve stenosis- Primary Acute renal failure superimposed on stage 4 chronic kidney disease, unspecified acute renal failure type (HCC) documented in this encounter [facility] note* Diagnosis Osteoarthritis, unspecified osteoarthritis type, unspecified site- Primary documented in this encounter [facility] note* Diagnosis Other depression Cellulitis of left lower leg Cellulitis and abscess of leg, except foot documented in this encounter [facility] note* Diagnosis Chronic kidney disease, stage 4 (severe) ([facility])- Primary Chronic kidney disease, stage 4 (severe) ([facility]) documented in this encounter [facility] note* Diagnosis Coronary artery disease involving coronary bypass graft of [place] heart without angina pectoris Nonrheumatic aortic valve stenosis documented in this encounter [facility] note* Diagnosis Chronic kidney disease, stage 4 (severe) ([facility]) documented in this encounter [facility] note* Diagnosis Primary hypertension- Primary Unspecified essential hypertension Type 2 diabetes mellitus with stage 4 chronic kidney disease, without long-term current use of insulin ([facility]) CKD (chronic kidney disease) stage 4, GFR 15-29 ml/min (HCC) Chronic kidney disease, Stage IV (severe) Cellulitis of left lower leg Cellulitis and abscess of leg, except foot Class 1 obesity with body mass index (BMI) of 33.0 to 33.9 in adult, unspecified obesity type, unspecified whether serious comorbidity present Bilateral leg edema Edema Systolic murmur Undiagnosed cardiac murmurs Other depression documented in this encounter [facility] note* Diagnosis BARRY (acute kidney injury) (HCC)- Primary Encounter for adjustment or management of cardiac device [facility] Diagnosis Symptomatic sinus bradycardia- Primary Symptomatic sinus bradycardia Elevated troponin Other abnormal blood chemistry Elevated brain natriuretic peptide (BNP) level Second degree AV block Other second degree atrioventricular block Symptomatic sinus bradycardia Encounter for adjustment or management of cardiac device [facility] Diagnosis Primary hypertension- Primary Unspecified essential hypertension Systolic murmur Undiagnosed cardiac murmurs Symptomatic sinus bradycardia Other specified cardiac dysrhythmias CKD (chronic kidney disease) stage 4, GFR 15-29 ml/min ([facility]) Chronic kidney disease, Stage IV (severe) Class 1 obesity with body mass index (BMI) of 32.0 to 32.9 in adult, unspecified obesity type, unspecified whether serious comorbidity present documented in this encounter [facility] note* Diagnosis Acute cystitis with hematuria- Primary Altered mental status, unspecified altered mental status type Acute cystitis with hematuria Encounter for adjustment or management of cardiac device [facility]* Diagnosis Chronic kidney disease, stage 4 (severe) (HCC)- Primary Chronic kidney disease, stage 4 (severe) (HCC) Chronic kidney disease, stage 4 (severe) (HCC) Encounter for adjustment or management of cardiac device [facility]* Diagnosis Nonrheumatic aortic valve stenosis- Primary [facility]* Diagnosis Coronary artery disease involving coronary bypass graft of [place] heart without angina pectoris Essential hypertension Unspecified essential hypertension Encounter for adjustment or management of cardiac device documented in this encounter [facility] noteNo assessment information availableWFayette [facility] Work Phone: Evaluation note* Diagnosis Second degree heart block- Primary Other second degree atrioventricular block Essential hypertension Unspecified essential hypertension Cardiac pacemaker in situ Encounter for adjustment or management of cardiac device [facility] Essential hypertension- Primary Unspecified essential hypertension Second degree heart block Other second degree atrioventricular block Encounter for adjustment or management of cardiac device documented in this encounter [facility] for referral (narrative)* Diagnostic Procedure Only (Routine) - Pending Review Specialty Diagnoses / Procedures Referred By Contac t Referred To Contact US IMAGING Diagnoses BARRY (acute kidney injury) (HCC) Procedures US KIDNEY/BLADDER US RETROPERITONEAL REAL TIME W/[place] [address] Us Imaging Referral ID Status Reason Start Date Expiration Date Visits Requested Visits Authorized [id number] Pending Review Auto-Generat ed Referral 05/03/2022 06/02/2023 1 1 T [facility] [facility] for referral (narrative)* Diagnostic Procedure Only (Urgent) - Authorized Specialty Diagnoses / Procedures [facility] To Contact [facility] IMAGING Diagnoses Right leg swelling Procedures US DVT LOWER RIGHT DUP-SCAN XTR VEINS UNILATERAL/LIM[place] [address] Us Imaging Referral ID Status Reason Start Date Expiration Date Visits Requested Visits Authorized [id number] Authorized Auto-Generat ed Referral 03/07/2023 04/05/2024 1 1 [facility] [facility] for referral (narrative)* Diagnostic Procedure Only (Routine) - Pending Review Specialty Diagnoses / Procedures Referred By Contac t Referred To Contact US IMAGING Diagnoses CKD (chronic kidney disease) stage 4, GFR 15-29 ml/min (HCC) Procedures US KIDNEY/BLADDER US RETROPERITONEAL REAL TIME W/IMAGE COMPLETE Komal Cohn DO [address] [place] [address] Us Imaging [place] [id number] Referral ID Status Reason Start Date Expiration Date Visits Requested Visits Authorized [id number] Pending Review Auto-Generat ed Referral 01/06/2024 02/04/2025 1 1 * Consult, Test, Treat (Routine) - Authorized Specialty Diagnoses / Procedures Referred By Contac t Referred To Contact Nephrology Diagnoses CKD (chronic kidney disease) stage 4, GFR 15-29 ml/min ([facility]) Procedures CONSULT TO NEPHROLOGY OFFICE/OUTPATIENT [facility] 60 MINUTES [facility] [place] [address] Referral ID Status Reason Start Date Expiration Date Visits Requested Visits Authorized [id number] Authorized PCP Requested Referral 01/06/2024 01/05/2025 1 1 * Consult, Test, Treat (Routine) - Authorized Specialty Diagnoses / Procedures Referred By Contac t Referred To Contact Ophthalmology Diagnoses Screening for diabetic retinopathy Procedures CONSULT TO OPHTHALMOLOGY OFFICE/OUTPATIENT [facility] 60 MINUTES LalitLennieCaputa Maryan, DO [address] [place] [address] Referral ID Status Reason Start Date Expiration Date Visits Requested Visits Authorized [id number] Authorized PCP Requested Referral 01/06/2024 01/05/[address] 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 ACP-Advance Directive ACP-Power of Onion Farmer Latest Code Status on File Code Status Date Activated Date Inactivated Comments Full Code 12/27/2017 3:56 PM 12/30/2017 2:31 PM Full Code 12/27/2017 8:17 AM 12/27/2017 3:56 PM Full Code 12/26/2017 1:59 PM 12/27/2017 8:17 AM Documents on File Type Date Recorded 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 Advance Directives and Living Will Power of Onion Farmer Latest Code Status on File Code Status Date Activated Date Inactivated Comments Full Code 12/13/2021 6:07 PM Full Code 12/27/2017 3:56 PM 12/30/2017 2:31 PM Healthcare Agents on File Name Relationship Healthcare Agent Relationshi p Communication costa Hicks Primary Decision Maker Latest Code Status on [...] type (HCC) Procedures CONSULT TO CARDIOLOGY OFFICE/OUTPATIENT [facility] 60-[place] [address] Referral ID Status Reason Start Date Expiration Date Visits Requested Visits Authorized [id number] Pending Review PCP Requested Referral 09/03/2021 09/03/2022 1 1 Specialty Diagnoses / Procedures Referred By Contac t Referred To Contact Cardiology Diagnoses Nonrheumatic aortic valve stenosis Procedures Transthoracic echocardiogram (TTE) complete with contrast, bubble, strain, and 3D PRN CO ECHO TTHRC R-T 2D W/WOM-MODE COMPL SPEC&COLR D CO TTE W OR WO FOL WCON,DOPPLER Charley Parker, WAITER/WAITRESS [employer]MAL - [employer] M[employer]TER [address], [address] [place] [address] Referral ID Status Reason Start Date Expiration Date V isits Requested Visits Authorized [id number] Closed Perform Procedure 10/19/2022 01/16/2023 1 1 Specialty Diagnoses / Procedures Referred By Contac t Referred To Contact Cardiology Diagnoses Other specified soft tissue disorders Procedures Vascular US lower extremity venous duplex right Lennie Cohnland, DO [address] [place] [id number] Referral ID Status Reason Start Date Expiration Date V isits Requested Visits Authorized [id number] Closed Perform Procedure 03/07/2023 09/03/2023 1 1 Specialty Diagnoses / Procedures Referred By Contac t Referred To Contact Terence Gonzalez MD [address] [place] [address] Referral ID Status Reason Start Date Expiration Date V isits Requested Visits Authorized [id number] Pending Review 02/02/2024 07/31/2024 1 1 Specialty Diagnoses / Procedures Referred By Contac t Referred To Contact Cardiology Diagnoses Coronary artery disease involving coronary bypass graft of [place] heart without angina pectoris Nonrheumatic aortic valve stenosis Procedures Transthoracic echocardiogram (TTE) complete with contrast, bubble, strain, and 3D PRN CO ECHO TTHRC R-T 2D W/WOM-MODE COMPL SPEC&COLR D CO TTE W OR WO FOL WCQUINTON JOY Roger B, MD [address] [place] [address] Referral ID Status Reason Start Date Expiration Date V isits Requested Visits Authorized [id number] Pending Review 03/14/2024 03/14/2025 1 1 Referral ID Status Reason Start Date Expiration Date Visits Re quested Visits Authorized [id number] Closed 03/15/2024 06/12/2024 1 1 Specialty Diagnoses / Procedures Referred By Contac t Referred To Contact Cardiology Diagnoses Chronic kidney disease, stage 4 (severe) (HCC) Procedures Vascular US renal artery duplex complete Le Dobson, WAITER/WAITRESS FORMAL - METAL MELTER [address] [place] [address] Referral ID Status Reason Start Date Expiration Date Visits Re quested Visits Authorized [id number] Closed 04/06/2024 04/06/2025 1 1 Specialty Diagnoses / Procedures Referred By Jen t Referred To Contact Diagnoses Type 2 diabetes mellitus without complication, without long-term current use of insulin ([facility]) Komal Cohn DO [address] [place], [place] [id number] Referral ID Status Reason Start Date Expiration Date Visits Re quested Visits Authorized [id number] Denied 04/27/2024 06/26/2024 1 1 Referral ID Status Reason Start Date Expiration Date Visits Requested Visits Authorized [id number] Pending Review Perform Procedure 09/30/2022 03/29/2023 1 1 Summary Purpose Family History No Family History Records FoundNo Family History Records FoundNo Family History Records FoundNo Family History Records FoundNo Family History Records FoundNo Family History Records Found Chief Complaint and Reason for Visit Chief Complaint Admit Date LAB WORK July 11, 2024 5 :35am [facility]RECTION LAB WORK July 17 5:00am LABWORK July 18, 2024 5:00am LAB WORK July 19, 2024 5:00am [facility]RE[facility] LAB WORK July 20 5:00am [facility]RE[facility] LAB WORK July 25 4:00am [facility]RE[facility] LAB WORK August 02 4:00am LABWORK August 03, 2024 5:00am CORRECTION LAB WORK August 07 5:00am CORRECTION LAB WORK September 25 4:00am CORRECTION LAB WORK October 05 5:00am CORRECTION LAB WORK October 15, 2024 5 :00am Chief Complaint Admit Date CORRECTION LAB WORK July 17 5:00am LABWORK July 18, 2024 5:00am LAB WORK July 19, 2024 5:00am CORRECTION LAB WORK July 20 5:00am CORRECTION LAB WORK July 25 4:00am CORRECTION LAB WORK August 02 4:00am LABWORK August 03, 2024 5:00am CORRECTION LAB WORK August 07 5:00am CORRECTION LAB WORK September 25 4:00am CORRECTION LAB WORK October 05 5:00am CORRECTION LAB WORK October 15, 2024 5 :00am LABWORK October 26, 2024 5:0 0am Chief Complaint Admit Date CORRECTION LAB WORK August 02 4:00am LABWORK August 03, 2024 5:00am CORRECTION LAB WORK August 07 5:00am CORRECTION LAB WORK September 25 4:00am CORRECTION LAB WORK October 05 5:00am CORRECTION LAB WORK October 15, 2024 5 :00am LABWORK October 26, 2024 5:0 0am CORRECTION LAB WORK November 02, 2024 5 :00am Additional Source Comments Source Comments (unrecognize d section and content) In the event this informatio n is protected by the Federal Confidentiality of Alcohol and Drug Abuse Patient Records regulations: The Federal rules restrict any use of the information to criminally investigate or prosecute any alcohol or drug abuse patient.[facility] System[facility] the event this information is protected by the Federal Confidentiality of Alcohol and Drug Abuse Patient Records regulations: The Federal rules restrict any use of the information to criminally investigate or prosecute any alcohol or drug abuse patient.[facility] SystemIn the event this information is protected by the Federal Confidentiality of Alcohol and Drug Abuse Patient Records regulations: The Federal rules restrict any use of the information to criminally investigate or prosecute any alcohol or drug abuse patient.[facility] SystemIn the event this information is protected by the Federal Confidentiality of Alcohol and Drug Abuse Patient Records regulations: The Federal rules restrict any use of the information to criminally investigate or prosecute any alcohol or drug abuse patient.[facility] SystemIn the event this information is protected by the Federal Confidentiality of Alcohol and Drug Abuse Patient Records regulations: The Federal rules restrict any use of the information to criminally investigate or prosecute any alcohol or drug abuse patient.[facility] System[facility] the event this information is protected by the Federal Confidentiality of Alcohol and Drug Abuse Patient Records regulations: The Federal rules restrict any use of the information to criminally investigate or prosecute any alcohol or drug abuse patient.[facility] SystemIn the event this information is protected by the Federal Confidentiality of Alcohol and Drug Abuse Patient Records regulations: The Federal rules restrict any use of the information to criminally investigate or prosecute any alcohol or drug abuse patient.[facility] SystemIn the event this information is protected by the Federal Confidentiality of Alcohol and Drug Abuse Patient Records regulations: The Federal rules restrict any use of the information to criminally investigate or prosecute any alcohol or drug abuse patient.[facility] SystemIn the event this information is protected by the Federal Confidentiality of Alcohol and Drug Abuse Patient Records regulations: The Federal rules restrict any use of the information to criminally investigate or prosecute any alcohol or drug abuse patient.[facility] SystemIn the event this information is protected by the Federal Confidentiality of Alcohol and Drug Abuse Patient Records regulations: The Federal rules restrict any use of the information to criminally investigate or prosecute any alcohol or drug abuse patient.[facility] SystemIn the event this information is protected by the Federal Confidentiality of Alcohol and Drug Abuse Patient Records regulations: The Federal rules restrict any use of the information to criminally investigate or prosecute any alcohol or drug abuse patient.[facility] System[facility] the event this information is protected by the Federal Confidentiality of Alcohol and Drug Abuse Patient Records regulations: The Federal rules restrict any use of the information to criminally investigate or prosecute any alcohol or drug abuse patient.[facility] SystemIn the event this information is protected by the Federal Confidentiality of Alcohol and Drug Abuse Patient Records regulations: The Federal rules restrict any use of the information to criminally investigate or prosecute any alcohol or drug abuse patient.[facility] SystemIn the event this information is protected by the Federal Confidentiality of Alcohol and Drug Abuse Patient Records regulations: The Federal rules restrict any use of the information to criminally investigate or prosecute any alcohol or drug abuse patient.[facility] SystemIn the event this information is protected by the Federal Confidentiality of Alcohol and Drug Abuse Patient Records regulations: The Federal rules restrict any use of the information to criminally investigate or prosecute any alcohol or drug abuse patient.[facility] SystemIn the event this information is protected by the Federal Confidentiality of Alcohol and Drug Abuse Patient Records regulations: The Federal rules restrict any use of the information to criminally investigate or prosecute any alcohol or drug abuse patient.[facility] SystemIn the event this information is protected by the Federal Confidentiality of Alcohol and Drug Abuse Patient Records regulations: The Federal rules restrict any use of the information to criminally investigate or prosecute any alcohol or drug abuse patient.[facility] SystemIn the event this information is protected by the Federal Confidentiality of Alcohol and Drug Abuse Patient Records regulations: The Federal rules restrict any use of the information to criminally investigate or prosecute any alcohol or drug abuse patient.[facility] SystemIn the event this information is protected by the Federal Confidentiality of Alcohol and Drug Abuse Patient Records regulations: The Federal rules restrict any use of the information to criminally investigate or prosecute any alcohol or drug abuse patient.[facility] the event this information is protected by the Federal Confidentiality of Alcohol and Drug Abuse Patient Records regulations: The Federal rules restrict any use of the information to criminally investigate or prosecute any alcohol or drug abuse patient.[facility] SystemIn the event this information is protected by the Federal Confidentiality of Alcohol and Drug Abuse Patient Records regulations: The Federal rules restrict any use of the information to criminally investigate or prosecute any alcohol or drug abuse patient.[facility] SystemIn the event this information is protected by the Federal Confidentiality of Alcohol and Drug Abuse Patient Records regulations: The Federal rules restrict any use of the information to criminally investigate or prosecute any alcohol or drug abuse patient.[facility] ClinicIn the event this information is protected by the Federal Confidentiality of Alcohol and Drug Abuse Patient Records regulations: The Federal rules restrict any use of the information to criminally investigate or prosecute any alcohol or drug abuse patient.[facility] SystemIn the event this information is protected by the Federal Confidentiality of Alcohol and Drug Abuse Patient Records regulations: The Federal rules restrict any use of the information to criminally investigate or prosecute any alcohol or drug abuse patient.[facility] SystemIn the event this information is protected by the Federal Confidentiality of Alcohol and Drug Abuse Patient Records regulations: The Federal rules restrict any use of the information to criminally investigate or prosecute any alcohol or drug abuse patient.[facility] SystemIn the event this information is protected by the Federal Confidentiality of Alcohol and Drug Abuse Patient Records regulations: The Federal rules restrict any use of the information to criminally investigate or prosecute any alcohol or drug abuse patient.[facility] SystemIn the event this information is protected by the Federal Confidentiality of Alcohol and Drug Abuse Patient Records regulations: The Federal rules restrict any use of the information to criminally investigate or prosecute any alcohol or drug abuse patient.[facility] SystemIn the event this information is protected by the Federal Confidentiality of Alcohol and Drug Abuse Patient Records regulations: The Federal rules restrict any use of the information to criminally investigate or prosecute any alcohol or drug abuse patient.[facility] SystemIn the event this information is protected by the Federal Confidentiality of Alcohol and Drug Abuse Patient Records regulations: The Federal rules restrict any use of the information to criminally investigate or prosecute any alcohol or drug abuse patient.[facility] SystemIn the event this information is protected by the Federal Confidentiality of Alcohol and Drug Abuse Patient Records regulations: The Federal rules restrict any use of the information to criminally investigate or prosecute any alcohol or drug abuse patient.[facility] SystemIn the event this information is protected by the Federal Confidentiality of Alcohol and Drug Abuse Patient Records regulations: The Federal rules restrict any use of the information to criminally investigate or prosecute any alcohol or drug abuse patient.[facility] SystemIn the event this information is protected by the Federal Confidentiality of Alcohol and Drug Abuse Patient Records regulations: The Federal rules restrict any use of the information to criminally investigate or prosecute any alcohol or drug abuse patient.[facility] SystemIn the event this information is protected by the Federal Confidentiality of Alcohol and Drug Abuse Patient Records regulations: The Federal rules restrict any use of the information to criminally investigate or prosecute any alcohol or drug abuse patient.[facility] SystemIn the event this information is protected by the Federal Confidentiality of Alcohol and Drug Abuse Patient Records regulations: The Federal rules restrict any use of the information to criminally investigate or prosecute any alcohol or drug abuse patient.[facility] SystemIn the event this information is protected by the Federal Confidentiality of Alcohol and Drug Abuse Patient Records regulations: The Federal rules restrict any use of the information to criminally investigate or prosecute any alcohol or drug abuse patient.[facility] SystemIn the event this information is protected by the Federal Confidentiality of Alcohol and Drug Abuse Patient Records regulations: The Federal rules restrict any use of the information to criminally investigate or prosecute any alcohol or drug abuse patient.[facility] SystemIn the event this information is protected by the Federal Confidentiality of Alcohol and Drug Abuse Patient Records regulations: The Federal rules restrict any use of the information to criminally investigate or prosecute any alcohol or drug abuse patient.[facility] SystemIn the event this information is protected by the Federal Confidentiality of Alcohol and Drug Abuse Patient Records regulations: The Federal rules restrict any use of the information to criminally investigate or prosecute any alcohol or drug abuse patient.[facility] SystemIn the event this information is protected by the Federal Confidentiality of Alcohol and Drug Abuse Patient Records regulations: The Federal rules restrict any use of the information to criminally investigate or prosecute any alcohol or drug abuse patient.[facility] SystemIn the event this information is protected by the Federal Confidentiality of Alcohol and Drug Abuse Patient Records regulations: The Federal rules restrict any use of the information to criminally investigate or prosecute any alcohol or drug abuse patient.[facility] SystemIn the event this information is protected by the Federal Confidentiality of Alcohol and Drug Abuse Patient Records regulations: The Federal rules restrict any use of the information to criminally investigate or prosecute any alcohol or drug abuse patient.[facility] SystemIn the event this information is protected by the Federal Confidentiality of Alcohol and Drug Abuse Patient Records regulations: The Federal rules restrict any use of the information to criminally investigate or prosecute any alcohol or drug abuse patient.[facility] SystemIn the event this information is protected by the Federal Confidentiality of Alcohol and Drug Abuse Patient Records regulations: The Federal rules restrict any use of the information to criminally investigate or prosecute any alcohol or drug abuse patient.[facility] SystemIn the event this information is protected by the Federal Confidentiality of Alcohol and Drug Abuse Patient Records regulations: The Federal rules restrict any use of the information to criminally investigate or prosecute any alcohol or drug abuse patient.[facility] SystemIn the event this information is protected by the Federal Confidentiality of Alcohol and Drug Abuse Patient Records regulations: The Federal rules restrict any use of the information to criminally investigate or prosecute any alcohol or drug abuse patient.[facility] SystemIn the event this information is protected by the Federal Confidentiality of Alcohol and Drug Abuse Patient Records regulations: The Federal rules restrict any use of the information to criminally investigate or prosecute any alcohol or drug abuse patient.[facility] SystemIn the event this information is protected by the Federal Confidentiality of Alcohol and Drug Abuse Patient Records regulations: The Federal rules restrict any use of the information to criminally investigate or prosecute any alcohol or drug abuse patient.[facility] SystemIn the event this information is protected by the Federal Confidentiality of Alcohol and Drug Abuse Patient Records regulations: The Federal rules restrict any use of the information to criminally investigate or prosecute any alcohol or drug abuse patient.[facility] SystemIn the event this information is protected by the Federal Confidentiality of Alcohol and Drug Abuse Patient Records regulations: The Federal rules restrict any use of the information to criminally investigate or prosecute any alcohol or drug abuse patient.[facility] SystemIn the event this information is protected by the Federal Confidentiality of Alcohol and Drug Abuse Patient Records regulations: The Federal rules restrict any use of the information to criminally investigate or prosecute any alcohol or drug abuse patient.[facility] SystemIn the event this information is protected by the Federal Confidentiality of Alcohol and Drug Abuse Patient Records regulations: The Federal rules restrict any use of the information to criminally investigate or prosecute any alcohol or drug abuse patient.[facility] SystemIn the event this information is protected by the Federal Confidentiality of Alcohol and Drug Abuse Patient Records regulations: The Federal rules restrict any use of the information to criminally investigate or prosecute any alcohol or drug abuse patient.[facility] SystemIn the event this information is protected by the Federal Confidentiality of Alcohol and Drug Abuse Patient Records regulations: The Federal rules restrict any use of the information to criminally investigate or prosecute any alcohol or drug abuse patient.[facility] SystemIn the event this information is protected by the Federal Confidentiality of Alcohol and Drug Abuse Patient Records regulations: The Federal rules restrict any use of the information to criminally investigate or prosecute any alcohol or drug abuse patient.[facility] SystemIn the event this information is protected by the Federal Confidentiality of Alcohol and Drug Abuse Patient Records regulations: The Federal rules restrict any use of the information to criminally investigate or prosecute any alcohol or drug abuse patient.[facility] SystemIn the event this information is protected by the Federal Confidentiality of Alcohol and Drug Abuse Patient Records regulations: The Federal rules restrict any use of the information to criminally investigate or prosecute any alcohol or drug abuse patient.[facility] SystemIn the event this information is protected by the Federal Confidentiality of Alcohol and Drug Abuse Patient Records regulations: The Federal rules restrict any use of the information to criminally investigate or prosecute any alcohol or drug abuse patient.[facility] SystemIn the event this information is protected by the Federal Confidentiality of Alcohol and Drug Abuse Patient Records regulations: The Federal rules restrict any use of the information to criminally investigate or prosecute any alcohol or drug abuse patient.[facility] SystemIn the event this information is protected by the Federal Confidentiality of Alcohol and Drug Abuse Patient Records regulations: The Federal rules restrict any use of the information to criminally investigate or prosecute any alcohol or drug abuse patient.[facility] SystemIn the event this information is protected by the Federal Confidentiality of Alcohol and Drug Abuse Patient Records regulations: The Federal rules restrict any use of the information to criminally investigate or prosecute any alcohol or drug abuse patient.[facility] SystemIn the event this information is protected by the Federal Confidentiality of Alcohol and Drug Abuse Patient Records regulations: The Federal rules restrict any use of the information to criminally investigate or prosecute any alcohol or drug abuse patient.[facility] SystemIn the event this information is protected by the Federal Confidentiality of Alcohol and Drug Abuse Patient Records regulations: The Federal rules restrict any use of the information to criminally investigate or prosecute any alcohol or drug abuse patient.[facility] SystemIn the event this information is protected by the Federal Confidentiality of Alcohol and Drug Abuse Patient Records regulations: The Federal rules restrict any use of the information to criminally investigate or prosecute any alcohol or drug abuse patient.[facility] SystemIn the event this information is protected by the Federal Confidentiality of Alcohol and Drug Abuse Patient Records regulations: The Federal rules restrict any use of the information to criminally investigate or prosecute any alcohol or drug abuse patient.[facility] SystemIn the event this information is protected by the Federal Confidentiality of Alcohol and Drug Abuse Patient Records regulations: The Federal rules restrict any use of the information to criminally investigate or prosecute any alcohol or drug abuse patient.[facility] SystemIn the event this information is protected by the Federal Confidentiality of Alcohol and Drug Abuse Patient Records regulations: The Federal rules restrict any use of the information to criminally investigate or prosecute any alcohol or drug abuse patient.[facility] SystemIn the event this information is protected by the Federal Confidentiality of Alcohol and Drug Abuse Patient Records regulations: The Federal rules restrict any use of the information to criminally investigate or prosecute any alcohol or drug abuse patient.[facility] SystemIn the event this information is protected by the Federal Confidentiality of Alcohol and Drug Abuse Patient Records regulations: The Federal rules restrict any use of the information to criminally investigate or prosecute any alcohol or drug abuse patient.[facility] SystemIn the event this information is protected by the Federal Confidentiality of Alcohol and Drug Abuse Patient Records regulations: The Federal rules restrict any use of the information to criminally investigate or prosecute any alcohol or drug abuse patient.[facility] the event this information is protected by the Federal Confidentiality of Alcohol and Drug Abuse Patient Records regulations: The Federal rules restrict any use of the information to criminally investigate or prosecute any alcohol or drug abuse patient.[facility] SystemIn the event this information is protected by the Federal Confidentiality of Alcohol and Drug Abuse Patient Records regulations: The Federal rules restrict any use of the information to criminally investigate or prosecute any alcohol or drug abuse patient.[facility] SystemIn the event this information is protected by the Federal Confidentiality of Alcohol and Drug Abuse Patient Records regulations: The Federal rules restrict any use of the information to criminally investigate or prosecute any alcohol or drug abuse patient.[facility] ClinicIn the event this information is protected by the Federal Confidentiality of Alcohol and Drug Abuse Patient Records regulations: The Federal rules restrict any use of the information to criminally investigate or prosecute any alcohol or drug abuse patient.[facility] SystemIn the event this information is protected by the Federal Confidentiality of Alcohol and Drug Abuse Patient Records regulations: The Federal rules restrict any use of the information to criminally investigate or prosecute any alcohol or drug abuse patient.[facility] SystemIn the event this information is protected by the Federal Confidentiality of Alcohol and Drug Abuse Patient Records regulations: The Federal rules restrict any use of the information to criminally investigate or prosecute any alcohol or drug abuse patient.[facility] SystemIn the event this information is protected by the Federal Confidentiality of Alcohol and Drug Abuse Patient Records regulations: The Federal rules restrict any use of the information to criminally investigate or prosecute any alcohol or drug abuse patient.[facility] SystemIn the event this information is protected by the Federal Confidentiality of Alcohol and Drug Abuse Patient Records regulations: The Federal rules restrict any use of the information to criminally investigate or prosecute any alcohol or drug abuse patient.[facility] SystemIn the event this information is protected by the Federal Confidentiality of Alcohol and Drug Abuse Patient Records regulations: The Federal rules restrict any use of the information to criminally investigate or prosecute any alcohol or drug abuse patient.[facility] SystemIn the event this information is protected by the Federal Confidentiality of Alcohol and Drug Abuse Patient Records regulations: The Federal rules restrict any use of the information to criminally investigate or prosecute any alcohol or drug abuse patient.[facility] SystemIn the event this information is protected by the Federal Confidentiality of Alcohol and Drug Abuse Patient Records regulations: The Federal rules restrict any use of the information to criminally investigate or prosecute any alcohol or drug abuse patient.[facility] Reason for Visit (unrecogniz ed section and [...] appropriately. Specialty Diagnoses / Procedures Referred By Jen t Referred To Contact Diagnoses UTI (urinary tract infection) Cystitis BARRY (acute kidney injury) ([facility] ([facility]) Procedures . Pola Henderson MD [address] [place] [address] [facility] [address] [place] [address] Referral ID Status Reason Start Date Expiration Date Visits Re quested Visits Authorized [id number] 1 1 Specialty Diagnoses / Procedures Referred By Jen t Referred To Contact Diagnoses Nonrheumatic aortic (valve) stenosis Procedures CO ECHO TTHRC R-T 2D W/WOM-MODE COMPL SPEC&COLR D [facility] Non-Invasive Cardiology [address] [place] [address] Referral ID Status Reason Start Date Expiration Date Visits Re quested Visits Authorized [id number] 1 1 Reason Onset Date Comments Results 12/09/2022 Echo Reason Comments Appointment Specialty Diagnoses / Procedures Referred By Contac t Referred To Contact Cardiology Diagnoses Other specified soft tissue disorders Procedures Vascular US lower extremity venous duplex right Lennie Cohnland, DO [address] [place] [address] Referral ID Status Reason Start Date Expiration Date V isits Requested Visits Authorized [id number] Closed Perform Procedure 03/07/2023 09/03/2023 1 1 [...] kidney disease state 4 gfr 15-29 confirm [id number] Reason Comments Consult Consult to ophthalmo logy, screening for diabetic retinopathy confirm [id number] Reason Comments Follow Up 4 week follow [...] without hematuria Procedures . Sukhi Maurer MD [address] [facility] [address] [place] [address] [place] [address] Referral ID Status Reason Start Date Expiration Date Visits Re quested Visits Authorized [id number] 1 1 Reason Onset Date Comments Transition Of Care 02/08/2024 [facility] D[facility] to SNF 02/02/24 Reason Onset Date Comments Transition Of Care 02/15/2024 Discharged [facility] to Home Reason Onset Date Comments Transition Of Care 02/15/2024 DC SNF 02/13/24 Reason Comments prescription Reason Onset Date Comments Transition Of Care 02/29/2024 Reason Comments Transition Of Care [facility]. Discharged from [facility] rehab 02/13/24 Reason Onset Date Comments Transition Of Care 03/14/2024 Reason Comments Annual Exam Reason Comments Edema Started swelling and seepingRight leg May - Left leg started on Tues Reason Onset Date Comments Results 03/21/2024 Reason Comments Orders Handicap placard req uested Reason Onset Date Comments Refill Request Medication Question 04/07/2024 Citalopram Specialty Diagnoses / Procedures Referred By Contac t Referred To Contact Cardiology Diagnoses Coronary artery disease involving coronary bypass graft of [place] heart without angina pectoris Nonrheumatic aortic valve stenosis Procedures Transthoracic echocardiogram (TTE) complete with contrast, bubble, strain, and 3D PRN CO ECHO TTHRC R-T 2D W/WOM-MODE COMPL SPEC&COLR D CO TTE W OR WO FOL WCON,DOPPLER Jose Rojas MD [address] [place] [address] Referral ID Status Reason Start Date Expiration Date Visits Re quested Visits Authorized [id number] Closed 03/15/2024 06/12/2024 1 1 Specialty Diagnoses / Procedures Referred By Contac t Referred To Contact Cardiology Diagnoses Chronic kidney disease, stage 4 (severe) (HCC) Procedures Vascular US renal artery duplex complete Le Dobson, WAITER[employer] [address] [place] [address] Referral ID Status Reason Start Date Expiration Date Visits Re quested Visits Authorized [id number] Closed 04/06/2024 04/06/2025 1 1 Reason Comments [...] (BNP) level Symptomatic sinus bradycardia Procedures - Jose Morillo MD [address] [place] [address] Phone: tel: fax: [facility] Cardiac Progressive Care Unit PCU [address] [place] [address] Phone: tel: Referral ID Status Reason Start Date Expiration Date Visits Re quested Visits Authorized [id number] 1 1 Reason Comments Reason Comments Hospital Discharge 06/01/24 [facility], pace maker placement. Skin Check Skin tag [...] status, unspecified altered mental status type Procedures [id number] cystitis with hematuria Erinn Saavedra MD [address] [place] [address] Phone: tel: fax: [facility] Intensive Care Unit ICU [address] [place] [address] Phone: tel: Referral ID Status Reason Start Date Expiration Date Visits Re quested Visits Authorized [id number] 1 1 Reason Onset Date Comments Transition Of Care 2024 [facility]char ge to SNF Reason Comments 6 Month Follow-up Reason Onset Date Comments Transition Of Care 08/03/2024 SNF Update (L jose r Term resident) Reason Onset Date Comments Med Management 10/01/2024 Reason Comments Follow-up Reason Onset Date Comments Results 03/25/2025 Pacemaker Remote Telephone Encounter - Bobby, Marilin - 08/29/2020 10:06 AM ESTTelephone Encounter - Bobby, Marilin - 08/29/2020 10:02 AM ESTTelephone Encounter - Dematthias, Marilin - 09/04/2020 2:23 PM EST Miscellaneous Notes (unrecog nized section and content) Pharmacy requesting this metformin 1,000 for BID. Chart says once a day and also 500mg every day once a day. [place] showed 1,000mg BID. Patient was seen yesterday. [...] Care Teams (unrecognized sec tion and content) Instrument Checker Relationship Specialty Start Date End Date Lalit, Komal Maryan, DO [address] [place] [address] PCP - General Family Practice 05/22/18 Instrument Checker Relationship Specialty Start Date End Date Komal Cohn, DO [address] [place] [address] PCP - General Family Practice 05/22/18 Instrument Checker Relationship Specialty Start Date End Date Komal Cohn, DO [address] [place] [address] PCP - General Family Practice 05/22/18 Instrument Checker Relationship Specialty Start Date End Date Komal Cohn, DO [address] [place] [address] PCP - General Family Practice 05/22/18 Instrument Checker Relationship Specialty Start Date End Date Komal Cohn, DO [address] [place] [address] PCP - General Family Practice 05/22/18 Instrument Checker Relationship Specialty Start Date End Date Komal Cohn, [address] [place] [address] PCP - General Family Practice 05/22/18 Instrument Checker Relationship Specialty Start Date End Date Komal Cohn, DO [address] [place] [address] PCP - General Family Practice 05/22/18 Instrument Checker Relationship Specialty Start Date End Date Komal Cohn, DO [address] [place] [address] PCP - General Family Practice 05/22/18 Instrument Checker Relationship Specialty Start Date End Date Komal Cohn DO [address] [place] [address] PCP - General 04/16/15 Instrument Checker Relationship Specialty Start Date End Date Komal Cohn DO [address] [place] [address] PCP - General Family Practice 05/22/18 Instrument Checker Relationship Specialty Start Date End Date Komal Cohn DO [address] [place] [address] PCP - General Family Practice 05/22/18 Instrument Checker Relationship Specialty Start Date End Date Komal oChn [address] [address] PCP - General Family Practice 05/22/18 Instrument Checker Relationship Specialty Start Date End Date Komal Cohn [address] [address] PCP - General Family Practice 05/22/18 Instrument Checker Relationship Specialty Start Date End Date Komal Cohn [address] [address] PCP - General Family Practice 05/22/18 Instrument Checker Relationship Specialty Start Date End Date Komal Cohn [address] [address] PCP - General Family Medicine 05/22/18 Instrument Checker Relationship Specialty Start Date End Date Komal Cohn [address] [address] PCP - General Family Medicine 05/22/18 Instrument Checker Relationship Specialty Start Date End Date Komal Cohn [address] [address] PCP - General Family Medicine 05/22/18 Instrument Checker Relationship Specialty Start Date End Date Komal Cohn DO [address] [place] [address] PCP - General Family Medicine 05/22/18 Instrument Checker Relationship Specialty Start Date End Date Komal Cohn DO [address] [place] [address] PCP - General Family Medicine 05/22/18 Instrument Checker Relationship Specialty Start Date End Date Komal Cohn, DO [address] [place] [address] PCP - General Family Medicine 05/22/18 Instrument Checker Relationship Specialty Start Date End Date Komal Cohn DO [address] [place] [address] PCP - General Family Medicine 05/22/18 Instrument Checker Relationship Specialty Start Date End Date Komal Cohn DO [address] [place] [address] PCP - General Family Medicine 05/22/18 Instrument Checker Relationship Specialty Start Date End Date Komal Cohn DO [address] [place] [address] PCP - General Family Medicine 05/22/18 Instrument Checker Relationship Specialty Start Date End Date Komal Cohn, DO [address] [place] [address] PCP - General Family Medicine 05/22/18 Instrument Checker Relationship Specialty Start Date End Date Komal Cohn, DO [address] [place] [address] PCP - General Family Medicine 05/22/18 Instrument Checker Relationship Specialty Start Date End Date Komal Cohn DO [address] [place] [address] PCP - General Family Medicine 05/22/18 Instrument Checker Relationship Specialty Start Date End Date Komal Cohn DO [address] [place] [address] PCP - General 02/05/18 Instrument Checker Relationship Specialty Start Date End Date Komal Cohn DO [address] [place] [address] PCP - General Family Medicine 05/22/18 Instrument Checker Relationship Specialty Start Date End Date Komal Cohn DO [address] [place] [address] PCP - General 02/05/18 Instrument Checker Relationship Specialty Start Date End Date Komal Cohn DO [address] [place] [address] PCP - General 02/05/18 Instrument Checker Relationship Specialty Start Date End Date Komal Cohn DO [address] [place] [address] PCP - General Family Medicine 05/22/18 Instrument Checker Relationship Specialty Start Date End Date Komal Cohn DO [address] [place] [address] PCP - General Family Medicine 05/22/18 Instrument Checker Relationship Specialty Start Date End Date Komal Cohn DO [address] [place] [address] PCP - General Family Medicine 05/22/18 Instrument Checker Relationship Specialty Start Date End Date Komal Cohn DO [address] [place] [address] PCP - General Family Medicine 05/22/18 Instrument Checker Relationship Specialty Start Date End Date Komal Cohn DO [address] [place] [address] PCP - General 02/05/18 Instrument Checker Relationship Specialty Start Date End Date Komal Cohn DO [address] [place] [address] PCP - General Family Medicine 05/22/18 Instrument Checker Relationship Specialty Start Date End Date Komal Cohn DO [address] [place] [address] PCP - General Family Medicine 05/22/18 Instrument Checker Relationship Specialty Start Date End Date Komal Cohn DO [address] [place] [address] PCP - General Family Medicine 05/22/18 Instrument Checker Relationship Specialty Start Date End Date Komal Cohn DO [address] [place] [address] PCP - General 02/05/18 Instrument Checker Relationship Specialty Start Date End Date Komal Cohn DO [address] [place] [address] PCP - General Family Medicine 05/22/18 Instrument Checker Relationship Specialty Start Date End Date Komal Cohn DO [address] [place] [address] PCP - General Family Medicine 05/22/18 Instrument Checker Relationship Specialty Start Date End Date Komal Cohn DO [address] [place] [address] PCP - General Family Medicine 05/22/18 Instrument Checker Relationship Specialty Start Date End Date Komal Conh DO [address] [place] [address] PCP - General Family Medicine 05/22/18 Instrument Checker Relationship Specialty Start Date End Date Komal Cohn DO [address] [place] [address] PCP - General Family Medicine 05/22/18 Instrument Checker Relationship Specialty Start Date End Date Komal Cohn DO [address] [place] [address] PCP - General 02/05/18 Instrument Checker Relationship Specialty Start Date End Date Komal Cohn DO [address] [place] [address] PCP - General Family Medicine 05/22/18 Instrument Checker Relationship Specialty Start Date End Date Komla Cohn DO [address] [place] [address] PCP - General Family Medicine 05/22/18 Instrument Checker Relationship Specialty Start Date End Date Komal Cohn DO [address] [place] [address] PCP - General 02/05/18 Instrument Checker Relationship Specialty Start Date End Date Komal Cohn DO [address] [place] [address] PCP - General Family Medicine 05/22/18 Komal Cohn DO [address] [place] [address] Referring Family Medicine 01/10/24 Sue Claudio RN Primary Care Ceramic Plater 02/08/24 02/08/24 Instrument Checker Relationship Specialty Start Date End Date Komal Cohn DO [address] [place] [address] PCP - General Family Medicine 05/22/18 Komal Cohn DO [address] [place] [address] Referring Family Medicine 01/10/24 Latonya Rosado, brine tank separator operator Ceramic Plater 02/15/24 Instrument Checker Relationship Specialty Start Date End Date Komal Cohn DO [address] [place] [address] PCP - General Family Medicine 05/22/18 Komal oChn DO [address] [place] [address] Referring Family Medicine 01/10/24 Latonya Rosado, brine tank separator operator Ceramic Plater 02/15/24 Instrument Checker Relationship Specialty Start Date End Date Komal Cohn DO [address] [place] [address] PCP - General Family Medicine 05/22/18 Komal Cohn DO [address] [place], [place] [id number] Referring Family Medicine 01/10/24 Latonya Rosado, brine tank separator operator Ceramic Plater 02/15/24 Instrument Checker Relationship Specialty Start Date End Date Komal Cohn DO [address] [place] [address] PCP - General Family Medicine 05/22/18 Komal Cohn Maryan, [address] [place] [address] Referring Family Medicine 01/10/24 Latonya Rosado, brine tank separator operator Ceramic Plater 02/15/24 Instrument Checker Relationship Specialty Start Date End Date LalitKomal greenberg [address] [place], [place] [address] PCP - General 02/05/18 Instrument Checker Relationship Specialty Start Date End Date Komal Cohn [address] [place] [address] PCP - General Family Medicine 05/22/18 Komal Cohnard, DO [address] [place] [address] Referring Family Medicine 01/10/24 Instrument Checker Relationship Specialty Start Date End Date Komal Cohn [address] [place] [address] PCP - General 02/05/18 Instrument Checker Relationship Specialty Start Date End Date Lalit Komal MaryanDO [address] [place] [address] PCP - General Family Medicine 05/22/18 Komal Cohn DO [address] [place] [address] Referring Family Medicine 01/10/24 Instrument Checker Relationship Specialty Start Date End Date Komal Cohn DO [address] [place] [address] PCP - General Family Medicine 05/22/18 Komal Cohn DO [address] [place] [address] Referring Family Medicine 01/10/24 Instrument Checker Relationship Specialty Start Date End Date Komal Cohn DO [address] [place] [address] PCP - General Family Medicine 05/22/18 Komal Cohn DO [address] [place] [address] Referring Family Medicine 01/10/24 Instrument Checker Relationship Specialty Start Date End Date Komal Cohn DO [address] [place] [address] PCP - General 02/05/18 Instrument Checker Relationship Specialty Start Date End Date Komal Cohn DO [address] [place] [address] PCP - General 02/05/18 Instrument Checker Relationship Specialty Start Date End Date Komal Cohn DO [address] [place] [address] PCP - General 02/05/18 Instrument Checker Relationship Specialty Start Date End Date Lalit, Komal DO Maryan [address] [place] [address] PCP - General Family Medicine 05/22/18 Komal Cohn DO Maryan [address] [place] [address] Referring Family Medicine 01/10/24 Instrument Checker Relationship Specialty Start Date End Date Lalit KomalDO [address] [place] [address] PCP - General 02/05/18 Instrument Checker Relationship Specialty Start Date End Date Komal Cohn DO [address] [place], [place] [address] PCP - General 02/05/18 Instrument Checker Relationship Specialty Start Date End Date Lalit Komal Maryan [address] [place] [address] PCP - General Family Medicine 05/22/18 Komal Cohn MaryanDO [address] [place] [address] Referring Family Medicine 01/10/24 Instrument Checker Relationship Specialty Start Date End Date LalitKomalDO [address] [place] [address] PCP - General 02/05/18 Instrument Checker Relationship Specialty Start Date End Date Komal Cohn DO [address] [place] [address] PCP - General 02/05/18 Instrument Checker Relationship Specialty Start Date End Date Komal Cohn DO [address] [place] [address] PCP - General Family Medicine 05/22/18 Komal Cohn DO [address] [place] [address] Referring Family Medicine 01/10/24 Instrument Checker Relationship Specialty Start Date End Date Komal Cohn DO [address] [place] [address] PCP - General 02/05/18 Instrument Checker Relationship Specialty Start Date End Date Adin Elias CNP [address] [place] [address] PCP - General Internal Medicine 08/03/24 Komal Cohn DO [address] [place] [address] Referring Family Medicine 01/10/24 Instrument Checker Relationship Specialty Start Date End Date Komal Cohn DO [address] [place] [address] PCP - General 02/05/18 Team Status: Active [...] Active S tart: August 02, 2024 Julieth QURSEHI MD Referring Provider Active S tart: August 02, 2024 Team Status: Active Member Role Status Dates Julieth QURESHI MD Attending Provider Active S tart: August 03, 2024 Team Status: Active Member Role Status Katie QURESHI MD Attending Provider Active S tart: [...] 2024 Team Status: Active Member Role Status Katie QURESHI MD Attending Provider Active S tart: [...] Team Status: Active Member Role Status Dates Juleith QURESHI MD Attending Provider Active S tart: November 12, 2024 Team Status: Inactive Member Role Status Dates Julieth QURESHI MD Attending Provider Active S tart: November 02, 2024 End: November 02, 2024 Team Status: Active Member Role Status Dates Julieth QURESHI MD Attending Provider Active S tart: November 26, 2024 Instrument Checker Relationship Specialty Start Date End Date Julieth Olmedo DO [address] [place], [place] [address] [address] PCP - General Internal Medicine 01/11/25 Instrument Checker Relationship Specialty Start Date End Date Julieth Olmedo DO [address] [place], [place] [address], [place] [address] PCP - General Internal Medicine 01/11/25 Instrument Checker Relationship Specialty Start Date End Date Julieth Olmedo DO [address] [place], [place] [address], [place] [address] PCP - General Internal Medicine 01/11/25 Ordered [...] spray, Each Nostril, DAILY, First dose on 12/14/21 at 1230, Until Discontinued 0843 (Given - [...] RCP) 0818 (Given - Provider: Davion Lackey RCP)1848 (Given - Provider: Davion Lackey RCP) 1001 [...] RN) 0918 (Given - Provider: Kristen Herman, RN) atenolol (Tenormin) tablet 50 mg 50 mg, [...] Venous Thromboembolism 08 (Given - Provider: Kathya Rosen, JANES) 0919 (Given - Provider: Kristen Herman, JANES) [...] Provider: Lanie Sousa RN - Reason: Patient/family refused)204 (Given - Provider: Alia Causey RN) metFORMIN [...] 20 mg, Oral, Daily, First dose on Gerda 11/18/22 at 1215 1555 (Given - Provider: Damaris Hernandez, RN) 0914 (Given - Provider: Kristen Herman RN) sodium chloride 0.9 % bolus 500 mL (COMPLETED) 500 mL, IntraVENous, at 500 mL/hr, Administer over 1 Hours, Once, On Tue11/17/22 at 2335, For 1 dose 0039 (New Bag - Provider: Cecy Huertas RN)0132 (Stopped - Provider: Lanie Sousa RN) Continuous Medication Order 11/17/2022 11/18/2022 11/19/2022 sodium chloride 0.9 % infusion 50 mL/hr, IntraVENous, Continuous, Starting on Tue11/18/22 at 0120 0515 (New Bag - Provider: Do bebo Sousa, JANES)0800 (Rate/Dose Verify - Provider: Kathya Rosen, JANES)0830 (Rate/Dose Verify - Provider: Kathya Rosen RN)1208 [...] Hernandez RN) 1214 (New Bag - Provider: Arlnee Raza RN)1244 (Stopped - Provider: Arlene Raza [...] 350-400 10 Units Above 400 12 Units 2110 (Given - Provider: Donato Hernandez, JANES) 2005 (Given - Provider: Donato Hernandez RN) [...] Auto Held - Provider: Le Dobson APRN [facility]) 2100 (Dose Auto Held - Provider: Le Dobson APRN [facility]) 1711 (Unheld by provider - Provider: [...] (Dose Auto Held) 0900 (Dose Auto Held) 09 (Dose Auto Held)171 (Unheld by provider - Provider: Automatic Discharge Provider) potassium chloride CR (Klor-Con M10) ER tablet 40 mEq (COMPLETED) 40 mEq, Oral, Once, On 01/31/24 at 0800, For 1 dose, Best given [...] Auto Held - Provider: Singh Murguia MD) 09 (Dose Auto Held - Provider: Singh Murguia MD)182 (Unheld by provider - Provider: Automatic Discharge [...] 2036 (Given - Provider: Zbigniew Rivera RN) 09 (Given - Provider: Krunal Feng RN)191 (Given [...] - Comment: BS 105)1226 (Given - Provider: eKlly Cunningham RN)1816 (Given - Provider: Kelly Cunningham [...] Kelly Cunningham, JANES)1529 (Given - Provider: Kelly Cunningham, JANES)2100 (Not Given - Provider: Sidney Malave RN [...] 0926 (Given - Provider: Marine Ennis RN) 09 (Given - Provider: Kelly Cunningham RN) 0847 (Given - Provider: Luanne Ospina RN) rosuvastatin (Crestor) tablet 20 mg 20 mg, Oral, Daily, First dose on Tue06/26/24 at 0900 0925 (Given - Provider: Marine Ennis RN) 09 (Given - Provider: Kelly Cunningham RN) 0846 [...] Malave RN) 899 (Not Given - Provider: Luanne Ospina RN [...] sedation for opioid reversal - MUST notify precision optics technician provider immediately after first dose, may give [...] Infante, RN) 210 (Given - Provider: Sidney Malave RN) polyethylene glycol (PEG) 3350 (Miralax) packet 17 g 17 g, Oral, Daily PRN, constipation, Starting on Tue06/25/24 at 2147, 1st line for treatment of constipation - give scheduled if no bowel movement in past 24 hours. sodium chloride (Pima) 0.65 % nasal spray 1 spray 1 [...] section and content) DATE CREATED AUTHOR 12/23/2021 [employer] DATE CREATED AUTHOR AUTHOR'S ORGANIZ ATION 12/31/2021 [facility] DATE CREATED AUTHOR AUTHOR'S ORGANIZ ATION 11/10/2022 [facility] DATE CREATED AUTHOR AUTHOR'S ORGANIZ ATION 08/05/2024 [facility] DATE CREATED AUTHOR AUTHOR'S ORGANIZ ATION [facility]20[facility] DATE CREATED AUTHOR AUTHOR'S ORGANIZ ATION 06/12/2025 [facility] Goals (unrecognized section and content) Goals [...] BE BASED ON THE PRIMARY CLINICAL RECORDS. [employer] provides no warranty or guarantee of the accuracy or completeness of information in this document.
[2025-07-16 08:48] LABS: Mucous, Urine 0 SEEN /hpf (<or=2+); Red Blood Cells-Urine 0 SEEN /hpf (0-5)
[2025-07-16 10:30] LABS: Color, Urine Yellow (Yellow); Glucose, Dipstick Normal (Normal); Ketone-Dipstick Negative (Negative); Leukocyte Esterase-Dipstick Negative /ul (Negative); Nitrite-Dipstick Positive (Negative); Occult Blood-Urine 10 /ul (Negative); Protein-Dipstick 30 mg/dl (Negative); Specific Gravity, Urine 1.015 (1.002-1.030); Urine Bilirubin Dipstick Negative (Negative)
[2025-07-16 10:33] LABS: Ammonia 26.2 umol/L (11-51)
[2025-07-16 10:46] LABS: Squamous Epithelial Cells - UA 0-5 SEEN /hpf (5-10)
[2025-07-16 10:53] LABS: Hematocrit 37.6 % (37-47); Hemoglobin 12.2 g/dL (12.0-15.0); Mean Corp Hgb Conc 32.4 g/dL (32-36); Mean Corpuscular Volume 100.8 fL (81-99); Mean Platelet Vol. 11.9 fl (6.2-12.0); POSITIVE COUNT YES; Platelet Count 78 K/mm3 (150-450); RBC Distribution Width CV 12.5 % (11.6-14.6); RBC Distribution Width SD 46.5 fl (35.1-43.9); Red Blood Count 3.73 M/mm3 (4.2-5.4); White Blood Count 4.4 K/mm3 (4.4-11.0)
[2025-07-16 10:59] LABS: Scan Indicated on CBC? Y/N YES- FLAGS NOTED
[2025-07-16 11:12] LABS: AST(SGOT) 64 U/L (<=31); Alanine Aminotransfer ALT/SGPT 39 U/L (<=34); Albumin, Serum 3.1 g/dL (3.4-4.8); Alkaline Phosphatase 107 U/L (35-104); Anion Gap 9 (5-15); BUN 27 mg/dL (4-19); BUN/Creat Ratio 17.7 RATIO (10-20); Calcium,Total 9.8 mg/dL (7.6-11.0); Carbon Dioxide 27.8 mmol/L (21.0-32.0); Chloride 103 mmol/L (98-108); Globulin 2.4 g/dL (2.2-4.2); Glucose 130 mg/dL (70-99); Potassium 4.1 mmol/L (3.3-5.1)
== END ==
LOC: OLS.ACH 05:00
PROVIDERS: Visit Provider Internal Medicine
DX: K76.9 Liver disease, unspecified (principal); I50.9 Heart failure, unspecified; N18.30 Chronic kidney disease, stage 3 unspecified; E87.1 Hypo-osmolality and hyponatremia
CPT/HCPCS: 36415; 80053; 81001; 82140; 85027; 87077; 87086; 87088; 87186